=== PATIENT | male | born 1990 | race Caucasian/White ===

== ENCOUNTER 2019-05-17 13:00 | Emergency (ER) | payer MEDICARE ==
[~2019-05-17] VITALS: Ht 188 cm; Wt 74.8 kg
[~2019-05-17 13:00] MED LIST: ACYCLOVIR800 MG PO; COLCHICINE0.6 M1 PO; IBUPROFEN600 MG PO; IBUPROFEN800 MG PO; KEFLEX500 MG PO; MEDROL4 M1 PO; MYCOPHENOLIC A360 MG PO; NORCO 5-325 TA1 EACH PO; PREDNISONE20 MG PO; PROAIR HFA8.5 GM INH; VICOPROFEN 2001 EACH PO; XANAX0.5 MG PO; ZITHROMAX250 MG PO
--- OUTSIDE RECORDS SUMMARY | 2019-05-17 13:02 | XMS ---
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 Chace has no Care Guidelines for this patient. ETobi VISIT COUNT (12 MO.) 1 JEANETTE Kimball TOTAL 1 NOTE: Visits indicate total known visits. ED/C VISIT TRACKING (12 MO.) 05/17/2019 13:00 [place] [place] TYPE: Emergency COMPLAINT: - POST OP PROBLEM INPATIENT VISIT TRACKING (12 MO.) 12/19/2018 07:15 [facility] TYPE: Orthopedic DIAGNOSES: 79175. AVN RIGHT HIP [id number]. Idiopathic aseptic necrosis of left femur [id number]
== END 2019-05-17 15:24 | disposition home or self-care (01) ==
LOC: ED 13:00
DX: L76.22 Postprocedural hemorrhage of skin and subcutaneous tissue following other procedure (principal); Z79.899 Other long term (current) drug therapy
CPT/HCPCS: 99283

== ENCOUNTER 2019-05-17 16:43 | Emergency (ER) | payer MEDICARE ==
[~2019-05-17] VITALS: Ht 188 cm; Wt 74.8 kg
--- OUTSIDE RECORDS SUMMARY | ~2019-05-17 | XMS | Encounter Summary ---
Demographics + + + | Address | [address] | | | [place] [address] | + + + | Home Phone | | + + + | Preferred Language | Unknown | + + + | Marital Status | | + + + | Worship Affiliation | SPI | + + + | Race | White | + + + | Ethnic Group | Not or | + + + Author + + + | Author | [facility] | + + + | Organization | [facility] | + + + | Address | Unknown | + + + | Phone | Unavailable | + + + Support + + +---------+ + | Name | Relationship | Address | Phone | + + +---------+ + | Gabriel Kelly | ECON | Unknown | | + + +---------+ + Care Team Providers + +------+ + | Care Utility Plant Operative Name | Role | Phone | + +------+ + | Zayda Hinton | PCP | | + +------+ + Encounter Details +--------+ + + + + | Date | Type | Department | Care Team | Description | +--------+ + + + + | 08/22/ | Pharmacy | Specialty Pharmacy | | | | 2016 | Visit | Services [address] | | | | | | [address] | | | | | | [place], [place] | | | | | | [address] | | | | | | [phone] | | | +--------+ + + + + Social History + +-------+ +--------+ + | Tobacco Use | Types | Packs/Day | Years | Date | | | | | Used | | + +-------+ +--------+ + | Former Smoker | | 0.5 | 5 | Quit: 05/20/2015 | + +-------+ +--------+ + + +---+---+---+ | Smokeless Tobacco: | | | | | Former User | | | | + +---+---+---+ + + | Comments: used 1 year | + + + + +---------+ + | Alcohol Use | Drinks/Week | oz/Week | Comments | + + +---------+ + | Yes | 3 Standard drinks | 3.0 | | | | or equivalent | | | + + +---------+ + + + + | Sex Assigned at | Date Recorded | | | | + + + | Not on file | | + + + + + + + | Job Start Date | Occupation | Industry | + + + + | Not on file | Not on file | Not on file | + + + + + + + + | Travel History | Travel Start | Travel End | + + + + + + | No recent travel history available. | + + documented as of this encounter Plan of Treatment +--------+---------+ + + + | Date | Type | Specialty | Care Team | Description | +--------+---------+ + + + | 05/19/ | Lab | Phlebotomy | | | | 2018 | | | | | +--------+---------+ + + + | 05/19/ | Office | Hematology | Yari Garcia MD | | | 2019 | Visit | Malignancy | [address] [facility] | | | | | | [address] | | | | | | [place], [place] | | | | | | [address] | | | | | | [phone] | | | | | | | | +--------+---------+ + + + documented as of this encounter Visit Diagnoses Not on filedocumented in this encounter"
--- OUTSIDE RECORDS SUMMARY | ~2019-05-17 | XMS | Encounter Summary ---
Demographics + + + | Address | [address] | | | [place] [address] | + + + | Home Phone | | + + + | Preferred Language | Unknown | + + + | Marital Status | | + + + | Voodoo Affiliation | SPI | + + + | Race | White | + + + | Ethnic Group | Not or | + + + Author + + + | Author | [facility] | + + + | Organization | [facility] | + + + | Address | Unknown | + + + | Phone | Unavailable | + + + Support + + +---------+ + | Name | Relationship | Address | Phone | + + +---------+ + | Gabriel Kelly | ECON | Unknown | | + + +---------+ + Care Team Providers + +------+ + | Care Straightedge Worker Name | Role | Phone | + +------+ + | Pending Pcp Addition | PCP | Unavailable | + +------+ + Reason for Visit +--------+ + | Reason | Comments | +--------+ + | Other | NO change on TAC dose | +--------+ + Encounter Details +--------+ + + + + | Date | Type | Department | Care Team | Description | +--------+ + + + + | 10/27/ | Telephone | Center for | Yari Garcia MD | Other (NO change on | | 2016 | | Hematologic | [address] | TAC dose) | | | | [facility] | [address] | | | | | [address] | [place], [place] | | | | | [facility] Mailcode: | [address] | | | | | [facility] | [phone] | | | | | [place], | | | | | | [place] [address] | | | | | | [phone] | | | +--------+ + + + [...] Lab | Phlebotomy | | | | 2019 | | | | | +--------+---------+ + + + | 05/19/ | Office | Hematology | Yari Garcia MD | | | 2019 | Visit | Malignancy | [address] [facility] | | | | | | [address] | | | | | | [place], [place] | | | | | | [address] | | | | | | [phone] | | | | | | | | +--------+---------+ + + + documented as of this encounter Visit Diagnoses Not on filedocumented in this encounter"
--- OUTSIDE RECORDS SUMMARY | ~2019-05-17 | XMS | Encounter Summary ---
Demographics + + + | Address | [address] | | | [place] [address] | + + + | Home Phone | | + + + | Preferred Language | Unknown | + + + | Marital Status | | + + + | Mormon Affiliation | SPI | + + + | Race | White | + + + | Ethnic Group | Not or | + + + Author + + + | Author | [facility] | + + + | Organization | [facility] | + + + | Address | Unknown | + + + | Phone | Unavailable | + + + Support + + +---------+ + | Name | Relationship | Address | Phone | + + +---------+ + | Gabriel Kelly | ECON | Unknown | | + + +---------+ + Care Team Providers + +------+ + | Care Driftman Name | Role | Phone | + +------+ + | Zayda Hinton | PCP | | + +------+ + Reason for Visit + + + | Reason | Comments | + + + | Refill Request | | + + + Encounter Details +--------+--------+ + + + | Date | Type | Department | Care Team | Description | +--------+--------+ + + + | 09/05/ | Refill | Center for | Yari Garcia MD | Refill Request | | 2018 | | Hematologic | [address] [facility] [address] | | | | | Malignancies at | [address] [facility] | | | | | [address] | [place], [place] | | | | | [address] [facility] | [address] | | | | | [facility] Mailcode: | [phone] | | | | | [id number] [place] | | | | | | [place], | | | | | | [place] [address] | | | | | | [phone] | | | +--------+--------+ + + + Social History + +-------+ +--------+ + | Tobacco Use | Types | Packs/Day | Years | Date | | | | | Used | | + +-------+ +--------+ + | Former Smoker | | 1 | 7 | Quit: 05/20/2015 | + +-------+ +--------+ [...] 2019 | Visit | Malignancy | [address] [facility] | | | | | | [address] | | | | | | [place] | | | | | | [address] | | | | | | [phone] | | | | | | | | +--------+---------+ + + + documented as of this encounter Visit Diagnoses Not on filedocumented in this encounter"
--- OUTSIDE RECORDS SUMMARY | ~2019-05-17 | XMS | Encounter Summary ---
Demographics + + + | Address | [address] | | | [place] [address] | + + + | Home Phone | | + + + | Preferred Language | Unknown | + + + | Marital Status | | + + + | Worship Affiliation | SPI | + + + | Race | White | + + + | Ethnic Group | Not or | + + + Author + + + | Author | [facility] | + + + | Organization | [facility] | + + + | Address | Unknown | + + + | Phone | Unavailable | + + + Support + + +---------+ + | Name | Relationship | Address | Phone | + + +---------+ + | Gabriel Kelly | ECON | Unknown | | + + +---------+ + Care Team Providers + +------+ + | Care Assistant Professor Of Criminal Justice Name | Role | Phone | + +------+ + | Zayda Hinton | PCP | | + +------+ + Encounter Details +--------+ + + + + | Date | Type | Department | Care Team | Description | +--------+ + + + + | 08/05/ | Pharmacy | Specialty Pharmacy | | | | 2015 | Visit | Services [address] | | | | | | [address] | | | | | | [place], [place] | | | | | | [address] | | | | | | [phone] | | | +--------+ + + + + Social History + +-------+ +--------+ + | Tobacco Use | Types | Packs/Day | Years | Date | | | | | Used | | + +-------+ +--------+ + | Former Smoker | | 0.5 | 5 | Quit: 05/20/2015 | + +-------+ +--------+ + + + +---------+ + | Alcohol Use | Drinks/Week | oz/Week | Comments | + + +---------+ + | Yes | | | | + + +---------+ + [...] 2019 | Visit | Malignancy | [address] | | | | | [address] | | | | | | [place] | | | | | | [address] | | | | | | [phone] | | | | | | | | +--------+---------+ + + + documented as of this encounter Visit Diagnoses Not on filedocumented in this encounter"
--- OUTSIDE RECORDS SUMMARY | ~2019-05-17 | XMS | Encounter Summary ---
Demographics + + + | Address | [address] | | | [place] [address] | + + + | Home Phone | | + + + | Preferred Language | Unknown | + + + | Marital Status | | + + + | Denominational Affiliation | SPI | + + + | Race | White | + + + | Ethnic Group | Not or | + + + Author + + + | Author | [facility] | + + + | Organization | [facility] | + + + | Address | Unknown | + + + | Phone | Unavailable | + + + Support + + +---------+ + | Name | Relationship | Address | Phone | + + +---------+ + | Gabriel Kelly | ECON | Unknown | | + + +---------+ + Care Team Providers + +------+ + | Care Battery Checker Name | Role | Phone | + +------+ + | Pending Pcp Addition | PCP | Unavailable | + +------+ + Reason for Visit + + + | Reason | Comments | + + + | Chemotherapy | | + + + Chemotherapy (Routine) +--------+---------+ + + + + | Status | Reason | Specialty | Diagnoses / | Referred By | Referred To | | | | | Procedures | Contact | Contact | +--------+---------+ + + + + | Closed | Other | Hematology | Diagnoses | Jose | Michelle | | | | Malignancy | Acute | Yari Jones MD | Infusion | | | | | myelomonocyt | [address] | Center [address] | | | | | ic leukemia, | [address] | [address] | | | | | not having | [address] | [address] | | | | | achieved | [place], [place] | Rd Mailcode: | | | | | remission | [address] | [id number] | | | | | Procedures | Phone: | [place] | | | | | [place] | [phone] | Pavilion | | | | | AZACITIDINE | Fax: | [place], [place] | | | | | INJECTION, 1 | [phone] | [address] | | | | | [place] | | Phone: | | | | | [facility] | | [phone] | | | | | INFSN,1 HR | | Fax: | | | | | [place] [facility] | | [phone] | | | | | INFSN,ADDL | | | | | | | HR Vidaza | | | +--------+---------+ + + + + Encounter Details +--------+ + + + + | Date | Type | Department | Care Team | Description | +--------+ + + + + | 03/23/ | Clinical | Center for | | Chemotherapy | | 2016 | Support | Hematologic | | | | | Staff | [facility] | | | | | | [address] | | | | | | [address] Mailcode: | | | | | | [id number] [place] | | | | | | [place], | | | | | | [place] [address] | | | | | | [phone] | | | +--------+ + + + [...] + + documented as of this encounter Last Filed Vital Signs + + + + + | Vital Sign | Reading | Time Taken | Comments | + + + + + | Blood Pressure | 124/72 | 03/23/2016 8:50 AM | | | | | PDT | | + + + + + | Pulse | 71 | 03/23/2016 8:50 AM | | | | | PDT | | + + + + + | Temperature | 37 C (98.6 F) | 03/23/2016 8:50 AM | | | | | PDT | | + + + + + | Respiratory Rate | 16 | 03/23/2016 8:50 AM | | | | | PDT | | + + + + + | Oxygen Saturation | 99% | 03/23/2016 8:50 AM | | | | | PDT | | + + + + + | Inhaled Oxygen | - | - | | | Concentration | | | | + + + + + | Weight | 99.8 kg (220 lb 0.3 | 03/23/2016 8:50 AM | | | | oz) | PDT | | + + + + + | Height | - | - | | + + + + + | Body Mass Index | 27.94 | 01/25/2016 8:24 AM | | | | | PDT | | + + + + + documented in this encounter Progress Notes Allyson Hardy, ZAFAR - 03/23/2016 9:08 AM PDTFormatting of this note might be different fr om the original. Chemotherapy Nurse Note Physician: Dr. Garcia Allergies: Khurram is allergic to chlorhexidine towelette. Pre-Chemotherapy Pain Score: Patient reports a pain level of today. Narrative: Pt arrived in clinic for scheduled day 4 cycle 6 of Vidaza. Pt states he is fee ling well today. Pt denies any fevers, chills, nausea, vomiting, pain, constipation, diarrhe a, edema, sob, numbness, tingling, or mouth sores. Pt reports they are eating and drinking a dequately. Nursing Assessment: Fever: no; Diarrhea: no; SOB / Cough: no; Nausea / Vomiting: no; Anemia / Fatigue: no; Cons tipation: no; Edema: no; S/S Bleeding: no; Mucositis: no; Urinary: no; Neuropathy: no; Rash: no Vascular Access: 24 gauge PIV placed in patient s right forearm, using an IV start kit. PIV with excellent blood return. Labs drawn and sent. PIV flushed with 10 mL NS without any problems. Sterile transparent dressing applied. Patient tolerated procedure well. Labs: Lab Results Component Value Date WBC 7.8 03/20/2016 HB 12.7* 03/20/2016 HCT 37.4* 03/20/2016 PLT 173 03/20/2016 BUN 13 03/20/2016 CR 0.9 03/20/2016 For Treatment Done in Clinic Today: see MAR Treatment Provided: Labs results reviewed and met protocol parameters. Pre-medications of 8 mg PO Zofran given as ordered. Chemotherapy was checked by 2 RNs. 75 mg Vidaza was infused per chemotherapy protocol and completed without adverse event. Positive blood return noted pre and post infusion. For in fusion details, see MAR. Patient was reminded to call clinic with temp > 100.4, chills, s/s of bleeding or uncontrol led N/V/D/C. Patient verbalizes understanding. All questions answered. Patient was instructe d to check out at the bowling floor desk clerk prior to leaving the clinic. Patient d/c d ambulatory wit h in stable condition. Next Appointment in [facility] is on 03/24/16 at 7:50 am with [facility]. Allyson Hardy RN documented in this e ncounter Plan of Treatment +--------+---------+ + + + | Date | Type | Specialty | Care Team | Description | +--------+---------+ + + + | 05/19/ | Lab | Phlebotomy | | | | 2018 | | | | | +--------+---------+ + + + | 05/19/ | Office | Hematology | Yari Garcia MD | | | 2018 | Visit | Malignancy | [address] [facility] | | | | | | [address] | | | | | | [place], [place] | | | | | | [address] | | | | | | [phone] | | | | | | | | +--------+---------+ + + + documented as of this encounter Visit Diagnoses + + | Diagnosis | + + | Acute myeloid leukemia (AML), M4 (HCC)- primary induction failure - Primary | + + documented in this encounter Administered Medications + +---------+ +-------+-------+------+ | Medication Order | MAR | Action | Dose | Rate | Site | | | Action | Date | | | | + +---------+ +-------+-------+------+ | azaCITIDine (VIDAZA) 75 mg in | New Bag | 03/23/20 | 75 mg | 215 | | | NaCl 0.9 % IV 75 mg (rounded | | 16 9:55 | | mL/hr | | | from 72.64 mg = 32 mg/m2 | | AM PDT | | | | | 2.27 m2 Treatment plan recorded | | | | | | | BSA), intravenous, Administer | | | | | | | over 30 Minutes, ONCE, 1 dose, | | | | | | | Lupe 03/23/16 at 1015, HIGH RISK | | | | | | | MEDICATION-CHEMOTHERAPY | | | | | | | Administration must be completed | | | | | | | within 1 hour of preparation., | | | | | | + +---------+ +-------+-------+------+ +---+---+ | | | +---+---+ + +-------+ +------+---+---+ | ondansetron (ZOFRAN) tablet 8 | Given | 03/23/20 | 8 mg | | | | mg 8 mg, oral, ONCE, 1 dose, Lupe | | 16 9:21 | | | | | 03/23/16 at 0945 | | AM PDT | | | | + +-------+ +------+---+---+ +---+---+ | | | +---+---+ documented in this encounter"
--- OUTSIDE RECORDS SUMMARY | ~2019-05-17 | XMS | Encounter Summary ---
Demographics + + + | Address | [address] | | | [place] [address] | + + + | Home Phone | | + + + | Preferred Language | Unknown | + + + | Marital Status | | + + + | Worship Affiliation | SPI | + + + | Race | White | + + + | Ethnic Group | Not or | + + + Author + + + | Author | [facility] | + + + | Organization | [facility] | + + + | Address | Unknown | + + + | Phone | Unavailable | + + + Support + + +---------+ + | Name | Relationship | Address | Phone | + + +---------+ + | Gabriel Kelly | ECON | Unknown | | + + +---------+ + Care Team Providers + +------+ + | Care Military Nurse Name | Role | Phone | + +------+ + | Pending Pcp Addition | PCP | Unavailable | + +------+ + Encounter Details +--------+------+ + + + | Date | Type | Department | Care Team | Description | +--------+------+ + + + | 05/01/ | Lab | Laboratory, | | S/P allogeneic bone | | 2015 | | Specimen Collection | | marrow transplant | | | | at [facility] 3rd Floor | | ([facility]) | | | | [address] | | | | | | [place], | | | | | | [place] [address] | | | | | | [phone] | | | +--------+------+ + + + Social History + +-------+ [...] 2019 | Visit | Malignancy | [address] [facility] | | | | | | [address] | | | | | | [place], [place] | | | | | | [address] | | | | | | [phone] | | | | | | | | +--------+---------+ + + + documented as of this encounter Procedures + +--------+ + + + | Procedure Name | Priori | Date/Time | Associated Diagnosis | Comments | | | ty | | | | + +--------+ + + + | CBC AND AUTO DIFF | Urgent | 05/01/2016 | S/P allogeneic | Results for this | | | | 7:33 AM | bone marrow | procedure are in the | | | | PDT | transplant ([facility]) | results section. | + +--------+ + + + | CBC, WITH | Urgent | 05/01/2016 | S/P allogeneic | Results for this | | DIFFERENTIAL | | 7:33 AM | bone marrow | procedure are in the | | | | PDT | transplant ([facility]) | results section. | + +--------+ + + + | COMPLETE METABOLIC | Routin | 05/01/2016 | S/P allogeneic | Results for this | | SET | e | 7:33 AM | bone marrow | procedure are in the | | (NA,K,CL,CO2,BUN,CRE | | PDT | transplant ([facility]) | results section. | | AT,GLUC,CA,AST,ALT,B | | | | | | YUN TOTAL,ALK | | | | | | PHOS,ALB,PROT TOTAL) | | | | | + +--------+ + + + | PHOSPHORUS, PLASMA | Routin | 05/01/2016 | S/P allogeneic | Results for this | | | e | 7:33 AM | bone marrow | procedure are in the | | | | PDT | transplant ([facility]) | results section. | + +--------+ + + + | BILIRUBIN DIRECT | Routin | 05/01/2016 | S/P allogeneic | Results for this | | | e | 7:33 AM | bone marrow | procedure are in the | | | | PDT | transplant ([facility]) | results section. | + +--------+ + + + | URIC ACID, PLASMA | Routin | 05/01/2016 | S/P allogeneic | Results for this | | | e | 7:33 AM | bone marrow | procedure are in the | | | | PDT | transplant ([facility]) | results section. | + +--------+ + + + | MAGNESIUM, PLASMA | Routin | 05/01/2016 | S/P allogeneic | Results for this | | | e | 7:33 AM | bone marrow | procedure are in the | | | | PDT | transplant ([facility]) | results section. | + +--------+ + + + | LDH TOTAL, PLASMA | Routin | 05/01/2016 | S/P allogeneic | Results for this | | | e | 7:33 AM | bone marrow | procedure are in the | | | | PDT | transplant ([facility]) | results section. | + +--------+ + + + documented in this encounter Results CBC AND AUTO DIFF (05/01/2016 7:33 AM PDT) + + + + + + | Component | Value | Ref Range | Performed | Pathologist | | | | | At | Signature | + + + + + + | WHITE CELL | 8.50 | 4.40 - 11.00 | [facility] | | | COUNT | | K/cu mm | LABORATORY | | | | | | SERVICES, | | | | | | CORE | | + + + + + + | RED CELL | 4.38 (L) | 4.50 - 6.00 | [facility] | | | COUNT | | M/cu mm | LABORATORY | | | | | | SERVICES, | | | | | | CORE | | + + + + + + | HEMOGLOBIN | 14.5 | 13.5 - 17.5 | [facility] | | | | | g/dL | LABORATORY | | | | | | SERVICES, | | | | | | CORE | | + + + + + + | HEMATOCRIT | 42.9 | 41.0 - 53.0 % | [facility] | | | | | | LABORATORY | | | | | | SERVICES, | | | | | | CORE | | + + + + + + | MCV | 97.9 (H) | 80.0 - 96.0 fL | [facility] | | | | | | LABORATORY | | | | | | SERVICES, | | | | | | CORE | | + + + + + + | MCHC | 33.8 | 33.0 - 35.5 | [facility] | | | | | g/dL | LABORATORY | | | | | | SERVICES, | | | | | | CORE | | + + + + + + | RDW SD | 44.9 | 35.1 - 46.3 fL | [facility] | | | | | | LABORATORY | | | | | | SERVICES, | | | | | | CORE | | + + + + + + | PLATELET | 180 | 150 - 400 K/cu | [facility] | | | COUNT | | mm | LABORATORY | | | | | | SERVICES, | | | | | | CORE | | + + + + + + | MPV | 8.1 (L) | 9.7 - 12.3 fL | [facility] | | | | | | LABORATORY | | | | | | SERVICES, | | | | | | CORE | | + + + + + + | NRBC% | 0.0 | 0.0 - 0.3 % | [facility] | | | | | | LABORATORY | | | | | | SERVICES, | | | | | | CORE | | + + + + + + | NRBC# | 0.00 | 0.00 - 0.02 | [facility] | | | | | K/cu mm | LABORATORY | | | | | | SERVICES, | | | | | | CORE | | + + + + + + | NEUTROPHIL | 48.3 (L) | 50.0 - 70.0 % | [facility] | | | % | | | LABORATORY | | | | | | SERVICES, | | | | | | CORE | | + + + + + + | LYMPHOCYTE | 41.1 | 18.0 - 42.0 % | [facility] | | | % | | | LABORATORY | | | | | | SERVICES, | | | | | | CORE | | + + + + + + | MONOCYTE % | 6.4 | 3.5 - 9.0 % | [facility] | | | | | | LABORATORY | | | | | | SERVICES, | | | | | | CORE | | + + + + + + | EOS % | 3.2 (H) | 1.0 - 3.0 % | [facility] | | | | | | LABORATORY | | | | | | SERVICES, | | | | | | CORE | | + + + + + + | BASO % | 0.4 | 0.0 - 2.0 % | [facility] | | | | | | LABORATORY | | | | | | SERVICES, | | | | | | CORE | | + + + + + + | IG% | 0.6Comment: Immature | 0.0 - 0.6 % | [facility] | | | | Granulocytes (IG) | | LABORATORY | | | | include metamyelocytes, | | SERVICES, | | | | myelocytes and | | CORE | | | | promyelocytes. Bands | | | | | | are not included in the | | | | | | IG count. Bands are | | | | | | included in the | | | | | | neutrophil count. | | | | + + + + + + | NEUTROPHIL | 4.12 | 1.80 - 7.70 | [facility] | | | # | | K/cu mm | LABORATORY | | | | | | SERVICES, | | | | | | CORE | | + + + + + + | LYMPHOCYTE | 3.49 | 1.00 - 4.80 | [facility] | | | # | | K/cu mm | LABORATORY | | | | | | SERVICES, | | | | | | CORE | | + + + + + + | MONOCYTE # | 0.54 | 0.10 - 0.90 | [facility] | | | | | K/cu mm | LABORATORY | | | | | | SERVICES, | | | | | | CORE | | + + + + + + | EOS # | 0.27 | 0.00 - 0.50 | [facility] | | | | | K/cu mm | LABORATORY | | | | | | SERVICES, | | | | | | CORE | | + + + + + + | BASO # | 0.03 | 0.00 - 0.10 | [facility] | | | | | K/cu mm | LABORATORY | | | | | | SERVICES, | | | | | | CORE | | + + + + + + | IG# | 0.05 (H) | 0.00 - 0.03 | [facility] | | | | | K/cu mm | LABORATORY | | | | | | SERVICES, | | | | | | CORE | | + + + + + + + + | Specimen | + + | Blood - Blood | | (substance) | + + + + + | Narrative | Performed At | + + + | Immature Granulocytes (IG) include metamyelocytes, myelocytes | [facility] | | and promyelocytes. Bands are not included in the IG count. Bands are | LABORATORY | | included in the neutrophil count. | SERVICES CORE | + + + + + + + + | Performing | Address | City/State/Zipcode | Phone Number | | Organization | | | | + + + + + | [facility] | [address] | [place] [address] | | | SERVICES, CORE | [address] | | | + + + + + LDH TOTAL, PLASMA (05/01/2016 7:33 AM PDT) + +---------+ + + + | Component | Value | Ref Range | Performed | Pathologist | | | | | At | Signature | + +---------+ + + + | LD TOTAL, | 210 | <=250 U/L | [facility] | | | PLASMA | | | LABORATORY | | | | | | SERVICES, | | | | | | CORE | | + +---------+ + + + | LD CMNT | No Hemo | | [facility] | | | | | | LABORATORY | | | | | | SERVICES, | | | | | | CORE | | + +---------+ + + + + + | Specimen | + + | Blood - Blood | | (substance) | + + + + + + + | Performing | Address | City/State/Zipcode | Phone Number | | Organization | | | | + + + + + | [facility] | [address] | [place] [address] | | | SERVICES, CORE | [address] | | | + + + + + BILIRUBIN DIRECT (05/01/2016 7:33 AM PDT) + +---------+ + + + | Component | Value | Ref Range | Performed | Pathologist | | | | | At | Signature | + +---------+ + + + | BILIRUBIN | <0.1 | 0.0 - 0.3 mg/dL | [facility] | | | DIRECT | | | LABORATORY | | | | | | SERVICES, | | | | | | CORE | | + +---------+ + + + | REI Rice CMNT | No Hemo | | [facility] | | | | | | LABORATORY | | | | | | SERVICES, | | | | | | CORE | | + +---------+ + + + + + | Specimen | + + | Blood - Blood | | (substance) | + + + + + + + | Performing | Address | City/State/Zipcode | Phone Number | | Organization | | | | + + + + + | [facility] | [address] | [place] [address] | | | SERVICES, CORE | [address] | | | + + + + + URIC ACID, PLASMA (05/01/2016 7:33 AM PDT) + +-------+ + + + | Component | Value | Ref Range | Performed | Pathologist | | | | | At | Signature | + +-------+ + + + | URIC ACID, | 5.1 | 3.7 - 8.0 mg/dL | [facility] | | | PLASMA | | | LABORATORY | | | (LAB) | | | SERVICES, | | | | | | CORE | | + +-------+ + + + + + | Specimen | + + | Blood - Blood | | (substance) | + + + + + + + | Performing | Address | City/State/Zipcode | Phone Number | | Organization | | | | + + + + + | [facility] | [address] | [place] [address] | | | SERVICES, CORE | [address] | | | + + + + + PHOSPHORUS, PLASMA (05/01/2016 7:33 AM PDT) + +-------+ + + + | Component | Value | Ref Range | Performed | Pathologist | | | | | At | Signature | + +-------+ + + + | PHOSPHORUS, | 3.0 | 2.4 - 4.7 mg/dL | [facility] | | | PLASMA | | | LABORATORY | | | (LAB) | | | SERVICES, | | | | | | CORE | | + +-------+ + + + + + | Specimen | + + | Blood - Blood | | (substance) | + + + + + + + | Performing | Address | City/State/Zipcode | Phone Number | | Organization | | | | + + + + + | [facility] | [address] | [place] [address] | | | SERVICES, CORE | [address] | | | + + + + + MAGNESIUM, PLASMA (05/01/2016 7:33 AM PDT) + +-------+ + + + | Component | Value | Ref Range | Performed | Pathologist | | | | | At | Signature | + +-------+ + + + | MAGNESIUM,P | 2.0 | 1.8 - 2.5 mg/dL | [facility] | | | LASMA | | | LABORATORY | | | | | | SERVICES, | | | | | | CORE | | + +-------+ + + + + + | Specimen | + + | Blood - Blood | | (substance) | + + + + + + + | Performing | Address | City/State/Zipcode | Phone Number | | Organization | | | | + + + + + | [facility] | [address] | [place] [address] | | | SERVICES, CORE | [address] | | | + + + + + COMPLETE METABOLIC SET (NA,K,CL,CO2,BUN,CREAT,GLUC,CA,AST,ALT,BILI TOTAL,ALK PHOS,ALB,PROT TOTAL) (05/01/2016 7:33 AM PDT) + +---------+ + + + | Component | Value | Ref Range | Performed | Pathologist | | | | | At | Signature | + +---------+ + + + | GLUCOSE, | 128 (H) | 60 - 99 mg/dL | [facility] | | | PLASMA | | | LABORATORY | | | (LAB) | | | SERVICES, | | | | | | CORE | | + +---------+ + + + | BUN, PLASMA | 9 | 6 - 20 mg/dL | [facility] | | | (LAB) | | | LABORATORY | | | | | | SERVICES, | | | | | | CORE | | + +---------+ + + + | CREATININE | 0.91 | 0.70 - 1.30 | [facility] | | | PLASMA | | mg/dL | LABORATORY | | | (LAB) | | | SERVICES, | | | | | | CORE | | + +---------+ + + + | EGFR | >60 | >60 mL/min | [facility] | | | - | | | LABORATORY | | | TAIWANESE | | | SERVICES, | | | | | | CORE | | + +---------+ + + + | EGFR NON | >60 | >60 mL/min | [facility] | | | -JOANNE | | | LABORATORY | | | RICAN | | | SERVICES, | | | | | | CORE | | + +---------+ + + + | SODIUM, | 139 | 136 - 145 | [facility] | | | PLASMA | | mmol/L | LABORATORY | | | (LAB) | | | SERVICES, | | | | | | CORE | | + +---------+ + + + | POTASSIUM, | 3.7 | 3.4 - 5.0 | [facility] | | | PLASMA | | mmol/L | LABORATORY | | | (LAB) | | | SERVICES, | | | | | | CORE | | + +---------+ + + + | CHLORIDE, | 105 | 97 - 108 mmol/L | [facility] | | | PLASMA | | | LABORATORY | | | (LAB) | | | SERVICES, | | | | | | CORE | | + +---------+ + + + | TOTAL CO2, | 27 | 21 - 32 mmol/L | [facility] | | | PLASMA | | | LABORATORY | | | (LAB) | | | SERVICES, | | | | | | CORE | | + +---------+ + + + | CALCIUM, | 9.9 | 8.6 - 10.2 | [facility] | | | PLASMA | | mg/dL | LABORATORY | | | (LAB) | | | SERVICES, | | | | | | CORE | | + +---------+ + + + | CALCIUM(ALB | 9.8 | 8.6 - 10.2 | [facility] | | | CORRECTED) | | mg/dL | LABORATORY | | | | | | SERVICES, | | | | | | CORE | | + +---------+ + + + | BILIRUBIN | 0.4 | 0.3 - 1.2 mg/dL | [facility] | | | TOTAL | | | LABORATORY | | | | | | SERVICES, | | | | | | CORE | | + +---------+ + + + | TOTAL | 7.4 | 6.4 - 8.2 g/dL | [facility] | | | PROTEIN, | | | LABORATORY | | | PLASMA | | | SERVICES, | | | (LAB) | | | CORE | | + +---------+ + + + | ALBUMIN, | 4.1 | 3.5 - 4.7 g/dL | [facility] | | | PLASMA | | | LABORATORY | | | (LAB) | | | SERVICES, | | | | | | CORE | | + +---------+ + + + | ALK PHOS | 78 | 53 - 128 U/L | [facility] | | | | | | LABORATORY | | | | | | SERVICES, | | | | | | CORE | | + +---------+ + + + | AST(SGOT) | 50 (H) | <=41 U/L | [facility] | | | | | | LABORATORY | | | | | | SERVICES, | | | | | | CORE | | + +---------+ + + + | ALT (SGPT) | 101 (H) | <=60 U/L | [facility] | | | | | | LABORATORY | | | | | | SERVICES, | | | | | | CORE | | + +---------+ + + + | ANION GAP | 7 | mmol/L | [facility] | | | | | | LABORATORY | | | | | | SERVICES, | | | | | | CORE | | + +---------+ + + + | ANION | 6 | 4 - 11 mmol/L | [facility] | | | GAP(ALB | | | LABORATORY | | | CORRECTED) | | | SERVICES, | | | | | | CORE | | + +---------+ + + + | POTASSIUM | No Hemo | | [facility] | | | CMNT | | | LABORATORY | | | | | | SERVICES, | | | | | | CORE | | + +---------+ + + + | BILI T CMNT | No Hemo | | [facility] | | | | | | LABORATORY | | | | | | SERVICES, | | | | | | CORE | | + +---------+ + + + | AST CMNT | No Hemo | | [facility] | | | | | | LABORATORY | | | | | | SERVICES, | | | | | | CORE | | + +---------+ + + + + + | Specimen | + + | Blood - Blood | | (substance) | + + + + + | Narrative | Performed At | + + + | GFR is estimated using the MDRD equation recommended by the | [facility] | | National Kidney Disease Education Program. Estimated GFR | LABORATORY | | Interpretive Information: <60 mL/min/1.73 sq m | [facility], CORE | | Chronic Kidney Disease <15 mL/min/1.73 sq m | | | Kidney Failure Estimated GFR greater that 60 mL/min/1.73 sq m is of | | | limited clinical value. 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
--- OUTSIDE RECORDS SUMMARY | ~2019-05-17 | XMS | Encounter Summary ---
Demographics + + + | Address | [address] | | | [place] [address] | + + + | Home Phone | | + + + | Preferred Language | Unknown | + + + | Marital Status | | + + + | Mormon Affiliation | SPI | + + + | Race | White | + + + | Ethnic Group | Not or | + + + Author + + + | Author | [facility] | + + + | Organization | [facility] | + + + | Address | Unknown | + + + | Phone | Unavailable | + + + Support + + +---------+ + | Name | Relationship | Address | Phone | + + +---------+ + | Gabriel Kelly | ECON | Unknown | | + + +---------+ + Care Team Providers + +------+ + | Care Inspector Subassembly Name | Role | Phone | + +------+ + | Pending Pcp Addition | PCP | Unavailable | + +------+ + Reason for Visit +--------+ + | Reason | Comments | +--------+ + | Rash | | +--------+ + Office Visit - E/M Services (Routine) +--------+---------+ + + + + | Status | Reason | Specialty | Diagnoses / | Referred By | Referred To | | | | | Procedures | Contact | Contact | +--------+---------+ + + + + | Closed | Other | Hematology | Diagnoses | Jose, | Michelle [facility] | | | | Malignancy | Acute | Yari Jones MD | [facility] [address] | | | | | myelomonocyt | [address] | [address] | | | | | ic leukemia, | [address] | [address] | | | | | not having | [address] | Mailcode: | | | | | achieved | [place], [place] | [id number] | | | | | remission | [address] | [place] | | | | | | Phone: | [facility] | | | | | Procedures | [phone] | [place], [place] | | | | | Post BMT | Fax: | [address] | | | | | Auth to | [phone] | Phone: | | | | | included | | [phone] | | | | | facility, | | Fax: | | | | | diagnostics, | | [phone] | | | | | office | | | | | | | visits and | | | | | | | surgery | | | +--------+---------+ + + + + Encounter Details +--------+---------+ + + + | Date | Type | Department | Care Team | Description | +--------+---------+ + + + | 09/14/ | Office | [facility] for | Aspen Cummins FNP | 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) (HCC) | | | | Malignancies at | [address] | (Primary Dx) | | | | [facility] | [place], [place] | | | | | [address] | [address] | | | | | De[address] Mailcode: | [phone] | | | | | [facility] | | | | | | [facility] [place], | | | | | | [place] [address] | | | | | | [phone] | | | +--------+---------+ + + + Social History + +-------+ [...] + + + | Blood Pressure | 110/67 | 09/15/2015 3:42 PM | | | | | PST | | + + + + + | Pulse | 76 | 09/15/2015 3:42 PM | | | | | PST | | + + + + + | Temperature | 36.6 C (97.8 F) | 09/15/2015 3:42 PM | | | | | PST | | + + + + + | Respiratory Rate | 16 | 09/15/2015 3:42 PM | | | | | PST | | + + + + + | Oxygen Saturation | 100% | 09/15/2015 3:42 PM | | | | | PST | | + + + + + | Inhaled Oxygen | - | - | | | Concentration | | | | + + + + + | Weight | 77.1 kg (170 lb) | 09/15/2015 3:42 PM | | | | | PST | | + + + + + | Height | - | - | | + + + + + | Body Mass Index | 21.97 | 08/18/2015 4:35 PM | | | | | PST | | + + + + + documented in this encounter Patient Instructions Patient Instructions Aspen Cummins FNP - 09/15/2015 4:02 PM PST1. Begin prednisone 35 mg (3 1/2 tablets) by mouth twice daily. Take your morning dose as soon as you're out of bed i n the morning; be sure to eat a little something with it. Then take your afternoon dose arou nd 3:00 - again, be sure to eat something with it. 2. Begin posaconazole (noxifil) 300 mg by mouth twice daily x 2 doses, then 300 mg by mout h once daily. Stop fluconazole once you start the posaconazole 3. Once you start the posaconazole, decrease your tacrolimus to 1.5 mg by mouth twice afia y 4. Continue to use the triamcinolone cream twice daily. Do not apply this cream to your fa ce/neck, under your arms or in your groin. 5. If you have trouble sleeping because of the prednisone, please give us a call and we ca n prescribe a medication that will help 6. Return to clinic to follow up with Lizzie Leavitt PA-C on 09/17/15 as scheduled or sooner as needed documented in this encounter Progress Notes Aspen Cummins FNP - 09/15/2015 3:41 PM PST 09/15/2015 [facility] MD: Yari Garcia MD Primary Oncologist: aYri Garcia MD Diagnosis: AMML, primary refractory Transplant Date: 08/27/15 Donor: MM URD (DPB1 permissive antigen mismatch, male, [id number]) Identifying Data: Khurram Kelly is a 25 y.o. CM with a PMH of pericarditis who was in his [facility] until 03/13/15 (the night of his wedding) at which time he noted bilateral an kle pain and swelling. This persisted and worsened intermittently, progressing until he coul dn't bear weight. He presented to the ED, was diagnosed with cellulitis of the RLE, and pres cribed antibiotics. During evaluation, he was noted to be pancytopenic with subsequent white blood cell differential identifying a predominance of early appearing monocytes. On 04/18/15 he noted pleuritic anterior chest pains, low-grade fevers occasionally up to 10 1 with swelling and erythema over his L ankle. He was evaluated at [place]' ED on 06/[address] angiogram negative for blood clot. CBC demonstrated WBC 15.3 with 59% monocyt es and 3% immature monocytes, hgb 11.8, plts 146. He was apparently treated with antibiotics , colchicine and anti-inflammatory agents for possible dx of pericarditis with complete reso lution of his symptoms. After completion of his course of atbx and other medicines, his symptoms returned and he re -presented to the ED on 04/25/15. Repeat CT angiogram was again negative for PE or other abn ormality. CBC showed WBC 14.3 with 48% monocytes and 4% immature monocytes, hgb 12.8, plts 1 80. He was again treated with colchicine without antibiotics, again with complete resolution of symptoms. Due to symptoms of arthralgias, recurrent fevers, pericarditis and CBC abnl, jazlyn barrera was referred to Oncology for additional evaluation. Marrow studies completed on 05/19/15 s howed a hypercellular marrow (80-90%) with 86% of blast equivalents, comprised of myeloblast s, monoblasts and promonocytes. Concurrent flow cytometry detected 23% myeloid blasts and 60 % immature monocytic cells supporting this diagnosis. 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 He was referred to [facility] for further evaluation and man agement of his newly dx'd AML. Pt was admitted to [facility] on 05/26/15. Peripheral blood was sent for diagnostic studies, show ed 47% blasts and 30% monocytes, immunophenotype of blasts: dimCD13, CD33, CD34, CD56, CD117 , and CD123 c/w AMML. Cytogenetic and FISH studies were normal however Genetrails demonstrat ed a mutation of NRAS (~40%). He then received standard induction therapy (3+7). His day 14 marrow [06/09/15] showed a 50-60% cellular marrow with approximately 50% blasts. He began re- induction regimen with HAM on 06/11/15. Repeat marrow studies completed 07/08/15 showed a hyp ocellular marrow (15%) with ~80% blasts/promonocytes c/w residual disease. Blast immunopheno type (10% by flow): dim CD13, CD33, CD34, variable CD56, variable CD117, and dim IW115-stglj mickey; promonocyte immunophenotype (70% by flow): CD11b, CD13, CD14, variable CD16, CD33, vari able CD56, CD64, and HLA-DR- positive. Cytogenetic and FISH studies remained normal. Pt's hospital course was complicated by parotiditis, initially with Zosyn and vancomycin fo r possible infection however subsequently felt more likely more c/w chemotherapy-induced per itonitis. CT scan of his face 06/07/15 showed enlargement and heterogeneous enhancement of t he left parotid gland. He also experienced a periodontal infection. He was d/c'd to home on 07/08/15 and has followed up closely with Yari Garcia MD. Due to disease persistence, he t lashon underwent treatment with decitabine 20mg/m2 on days 1-10 (07/19/15 - 07/28/15) which was u ncomplicated. He did not have any fevers/infectious symptoms requiring further evaluation du ring that time. His pretransplant marrow studies completed 08/09/15 showed a hypocellular (5%) marrow with ne renata absent hematopoiesis with 60% blast/promonocytes. Blast immunophenotype (9% by flow): C D13, CD33, CD34, dim CD56, CD117, and dim CD123 positive. Promonocyte immunophenotype (~50% by flow): CD11b, CD13, CD14, dim CD56, CD64, and HLA-DR positive. Cytogenetics 46,XY. Hilary rails remained positive for NRAS (~0.9%, previously ~40% in 05/23). He was then re-hospitalized from 08/18/15 through 09/13/15 for his tBuCy-conditioned unrelated donor PBSC transplant. His transplant hospitalization was complicated by pancytopenia, neut ropenic fever, pneumonia, mucositis (grade 3 at worst) with hematemesis, CINV, diarrhea, hyp ertension, rash, and conjunctival injection. He is currently day +19 s/p transplant and presents to clinic today with spreading rash. Interim History: Khurram was most recently evaluated [facility] by JULIANA Patterson yesterday. At that time, he state he had a faintly eryth ematous rash to his upper chest, mid back and flanks. Notes document ~15% BSA. Today while he was getting dressed, he noted increase in his rash, now covering his trunk, patchy invol vement of his bilat upper arms, bilat thighs; sparing head/neck, forearms, groin, buttocks a nd calves/shins. He states he is feeling well o/w. Medications reviewed, see current med list Physical Exam Wt 77.111 kg (170 lb), BP 110/67, Pulse 76, Temperature 36.6 C (97.8 F), Temperature so urce Oral, RR 16, SpO2 100%, BMI 21.98 kg/(m^2). General: This is a healthy appearing male in no acute distress. HEENT: PERRL. Sclerae anicteric. Skin: Erythematous maculopapular rash to chest, abd, back, upper arms bilat, thighs bilat (front and back); ~56% BSA Lab Results Component Value Date WBC 10.4 09/14/2015 HB 9.6 09/14/2015 HCT 27.4 09/14/2015 PLT 42 09/14/2015 MCV 85.4 09/14/2015 RDW 40.3 09/12/2015 Lab Results Component Value Date BICARB 26 09/14/2015 TBILI 0.4 09/14/2015 CA 9.5 09/14/2015 CL 101 09/14/2015 CR 1.3 09/14/2015 GLU 93 09/14/2015 AP 119 09/14/2015 TP 6.8 09/14/2015 BUN 17 09/14/2015 ALB 3.6 09/14/2015 AST 15 09/14/2015 NA 138 09/14/2015 K 4.4 09/14/2015 ALT 33 09/14/2015 Assessment: Khurram Kelly is a 25 y.o. CM with a hx of primary refractory AML, currently d ay +19 s/p MM URD PBSC tx. He presents today with a rash that has spread from ~15% BSA to ~ 56% BSA overnight. Non-pruritic. Began TAC cream this morning. Skin bx completed 09/06/15 showed subtle vacuolar interface dermatitis. [Though quite subtle and not entirely specific, the changes are consistent with eruption of lymphocyte recovery and early mild xhhmk-mtadqm-oaec disease. Similar histologic changes may be seen in morbilli form eruptions of variable etiology including viral exanthem. While not required for a diagn osis, the paucity of eosinophils probably makes drug eruption less likely]. With rapidly spreading rash and skin bx findings c/w GvHD, begin moderate dose steroids wit h rapid taper providing rash resolves quickly. No evidence of liver or gut involvement at th is time. Plan: 1. Prednisone 35 mg po BID 2. D/c fluconazole 3. Posaconazole 300 mg po BID x 2 doses, then 300 mg po daily 4. Decrease tacrolimus to 1.5 mg po BID when changing from fluconazole to posaconazole. 5. Advised pt to take prednisone early in the AM and again ~1500 in the afternoon, always with food 6. RTC to f/u with JULIANA Patterson on 09/17/15 as previously scheduled, ORLY Chadwick rn [facility] [address] Mailcode: [id number] [place] [address] documented in this enc ounter Plan of Treatment +--------+---------+ + + + | Date | Type | Specialty | Care Team | Description | +--------+---------+ + + + | 05/19/ | Lab | Phlebotomy | | | | 2018 | | | | | +--------+---------+ + + + | 05/19/ | Office | Hematology | Yari Garcia MD | | | 2018 | Visit | Malignancy | [address] | | | | | | [facility] | | | | | | [place], [place] | | | | | | [address] | | | | | | [phone] | | | | | | | | +--------+---------+ + + + documented as of this encounter Visit Diagnoses + + | Diagnosis | + + | 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
--- OUTSIDE RECORDS SUMMARY | ~2019-05-17 | XMS | Encounter Summary ---
Demographics + + + | Address | [address] | | | [place] [address] | + + + | Home Phone | | + + + | Preferred Language | Unknown | + + + | Marital Status | | + + + | Lutheran Affiliation | SPI | + + + | Race | White | + + + | Ethnic Group | Not or | + + + Author + + + | Author | [facility] | + + + | Organization | [facility] | + + + | Address | Unknown | + + + | Phone | Unavailable | + + + Support + + +---------+ + | Name | Relationship | Address | Phone | + + +---------+ + | Gabriel Kelly | ECON | Unknown | | + + +---------+ + Care Team Providers + +------+ + | Care Dough Mixer Helper Name | Role | Phone | + +------+ + | Zayda Hinton | PCP | | + +------+ + Encounter Details +--------+ + + + + | Date | Type | Department | Care Team | Description | +--------+ + + + + | 07/15/ | Pharmacy | Specialty Pharmacy | | | | 2015 | Visit | Services [address] | | | | | | [address] | | | | | | [place], [place] | | | | | | [address] | | | | | | [phone] | | | +--------+ + + + [...] [place] | | | | | | [address] | | | | | | [phone] | | | | | | | | +--------+---------+ + + + documented as of this encounter Visit Diagnoses Not on filedocumented in this encounter"
--- OUTSIDE RECORDS SUMMARY | ~2019-05-17 | XMS | Encounter Summary ---
Demographics + + + | Address | [address] | | | [place] [address] | + + + | Home Phone | | + + + | Preferred Language | Unknown | + + + | Marital Status | | + + + | [place] Affiliation | SPI | + + + | Race | White | + + + | Ethnic Group | Not or | + + + Author + + + | Author | [facility] | + + + | Organization | [facility] | + + + | Address | Unknown | + + + | Phone | Unavailable | + + + Support + + +---------+ + | Name | Relationship | Address | Phone | + + +---------+ + | Gabriel Kelly | ECON | Unknown | | + + +---------+ + Care Team Providers + +------+ + | Care Screwmaker Automatic Name | Role | Phone | + +------+ + | No Pcp Per Patient | PCP | Unavailable | + +------+ + Reason for Visit AUTH/CERT +--------+--------+ + + + + | Status | Reason | Specialty | Diagnoses / | Referred By | Referred To | | | | | Procedures | Contact | Contact | +--------+--------+ + + + + | | | | | | | +--------+--------+ + + + + Encounter Details +--------+ + + + + | Date | Type | Department | Care Team | Description | +--------+ + + + + | 09/07/ | Hospital | [facility] [address] | Lobo Jeffers, | | | 2017 - | Encounter | [address] | [address] | | | | | Josie Barry | [address] | | | 09/08/ | | [place] | [place] | | | 2017 | | [address] | [address] | | | | | [phone] | [phone] | | | | | | | | +--------+ + + + [...] + + + | Blood Pressure | 137/80 | 09/08/2016 11:11 AM | | | | | PST | | + + + + + | Pulse | 86 | 09/08/2016 11:11 AM | | | | | PST | | + + + + + | Temperature | 37.6 C (99.7 F) | 09/08/2016 4:33 AM | | | | | PST | | + + + + + | Respiratory Rate | 16 | 09/08/2016 4:33 AM | | | | | PST | | + + + + + | Oxygen Saturation | 100% | 09/08/2016 11:11 AM | | | | | PST | | + + + + + | Inhaled Oxygen | - | - | | | Concentration | | | | + + + + + | Weight | 83 kg (182 lb 15.7 | 09/07/2016 6:00 AM | | | | oz) | PST | | + + + + + | Height | 190.5 cm (6' 3") | 09/07/2016 6:00 AM | | | | | PST | | + + + + + | Body Mass Index | 22.87 | 09/07/2016 6:00 AM | | | | | PST | | + + + + + documented in this encounter Discharge Summaries Latonya Paul NP - 09/08/2016 12:15 PM PST [facility] DEPARTMENT OF ORTHOPAEDICS & REHABILITATION INPATIENT HOSPITAL DISCHARGE SUMMARY & INTERDISCIPLINARY INSTRUCTIONS Patient: Khurram Kelly [facility]: [id number] Admission Date: 09/07/2016 Discharge Date: 09/08/2016 Attending Physician: Lobo Jeffers MD PCP: No Pcp Per PATIENT Service: [facility] Orthopaedics & Rehabilitation Diagnoses Principal Final Diagnosis: 1.Avascular necrosis, left femoral head. 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 The inpatie nt stay related to this procedure(s) took an uncomplicated perioperative course and the maxx ent was followed closely by the attending providers, resident providers, and medical/nursing staff. Post operatively, the patient was admitted to the hospital for convalescent care. Pain control was managed with iv/po pain medication as needed. The Patient was given 24hrs of IV antibiotics post-operatively. For DVT prophylaxis the patient was started on aspirin a nd SCDs and RAUL hose were also used. The patient made appropriate gains toward activity an d functional goals while an inpatient, working daily with physical therapy. [facility] the patient tolerated oral intake sufficient to maintain nutrition and hydrati on. The surgical wound remained clean, dry, and intact without signs concerning for infectio n. The patient was felt appropriate for discharge to home, and the patient and/or family nd mbers agree with this course of action. Diet Regular Regular diet- There are no restrictions to your diet for the procedure. Please continue to follow any diet restrictions that you had prior to this admission. Wound Care -If you have sutures or kwabena, do not get your wound wet for 3-5 days after your operatio n. Sponge bath or cover the incision with a waterproof bandage. Keep your incision covered w ith a dressing until there is no discharge on bandage.- If you have Steri-Strips (paper tape ) over your incision, keep the incision covered until there is no discharge on bandage. Do n ot remove Steri-Strips, they will fall off on their own. Trim edges of the Steri-Strips if t hey start to peel up. Do not get your wound wet for 5-7 days after your operation.- Once wou nd is closed (no drainage), you may shower. Let water run over wound. Pat dry. Do not scrub or soak wound in water.- Avoid using lotions, powders, oils, or ointments on your incision.- DO NOT let anyone start you on antibiotics if they suspect your wound is infected. Call [facility] Orthopedics first at [phone]. Activity Weight bear as tolerated on both lower extremities. Restrictions: Posterior hip precautions on operative side (no hip flexion >90 degrees, no c rossing your legs, no turning your foot towards the middle of the body (internal rotation). Destination: Destination: Home Condition on Discharge Stable Follow-Up Appointments ORTHOPEDICS OUTPATIENT CLINIC: Future Appointments Provider Department Dept Phone Center 09/11/2016 8:30 AM [facility] for H[facility]ologic Malignancies at [facility] [phone] Center for H 09/11/2016 9:25 AM Yari Garcia; [facility] SUPPORT Center for Hematologic Malignancies at [facility] [phone] Center for H 09/20/2016 10:45 AM Janette Das Orthopaedics at [facility] [phone] Orthopedics 10/18/2016 10:20 AM Lobo Jeffers Orthopaedics at [facility] [phone] Orthopedics Follow up in 2 weeks (or as previously scheduled). Call [phone] to confirm or schedule this appointment. PCP: As needed for any medical concerns not related to your surgery. Current Discharge Medication List START taking these medications Details acetaminophen 325 mg oral tablet Take 1-2 tablets by mouth every four hours as needed. Use this medication to help wean off your stronger opiate medication. DO NOT exceed 4000 mg in a 24 hr period. Indications: Pain Associated Diagnoses: Avascular necrosis of bone of left hip (HCC); Acute myelomonocytic l eukemia in remission (HCC) aspirin EC 325 mg oral tablet,delayed release (DR/EC) Take 1 tablet by mouth once daily. In dications: post-op DVT prevention Qty: 21 tablet, Refills: 0 Associated Diagnoses: Avascular necrosis of bone of left hip (HCC); Acute myelomonocytic l eukemia in remission (HCC) ondansetron ODT 4 mg oral tablet,disintegrating Dissolve 1 tablet in mouth every eight hour s as needed. Indications: Prevention of Post-Operative Nausea and Vomiting Qty: 12 tablet, Refills: 0 Associated Diagnoses: Avascular necrosis of bone of left hip (HCC) polyethylene glycol 17 gram/dose oral powder Mix 17 g in liquid and drink once daily as nee ded (1st line - for no BM for 2 days). Indications: Constipation Associated Diagnoses: Avascular necrosis of bone of left hip (HCC); Acute myelomonocytic l eukemia in remission (HCC) senna-docusate 8.6-50 mg oral tablet Take 1 tablet by mouth two times daily. Hold for diarr hea Indications: Constipation Associated Diagnoses: Avascular necrosis of bone of left hip (HCC); Acute myelomonocytic l eukemia in remission (HCC) CONTINUE these medications which have CHANGED or have new prescriptions Details oxyCODONE, immediate release, 10 mg oral tablet Take 1-2 tablets by mouth every three hours as needed. Indications: Pain Qty: 160 tablet, Refills: 0 CONTINUE these medications which have NOT CHANGED Details acyclovir 800 mg oral tablet Take 1 tablet by mouth two times daily. Qty: 60 tablet, Refills: 5 ALPRAZolam 0.5 mg oral tablet Take 1 tablet by mouth three times daily as needed. Indicatio ns: Anxiety Qty: 90 tablet, Refills: 0 Comments: amLODIPine 5 mg oral tablet Take one-half tablet by mouth once daily. Qty: 30 tablet, Refills: 2 beclomethasone 1 mg/mL oral suspension (compound) Take 1 mL by mouth four times daily. Mohamud e well and refrigerate. Please give 24 hours notice to compound medication. Discard after 14 days. Qty: 250 mL, Refills: 5 omeprazole 20 mg oral capsule,delayed release(DR/EC) Take 1 capsule by mouth before breakfa st. Qty: 30 capsule, Refills: 11 oxyCODONE CR 20 mg oral tablet,oral only,ext.rel.12 hr Take 1 tablet by mouth every twelve hours. Indications: Chronic Pain Qty: 60 tablet, Refills: 0 tacrolimus 1 mg oral capsule Take 1 capsule by mouth two times daily. Indications: preventi on of GvHD Qty: 60 capsule, Refills: 5 triamcinolone acetonide 0.1 % topical ointment Apply thin film to affected areas twice afia y. Qty: 454 g, Refills: 2 Comments: PLAN ONLY ALLOWS 120G PER FILL. 08/21 trimethoprim-sulfamethoxazole 160-800 mg oral tablet Take 1 tablet by mouth twice daily (ev gloriasunday and ). Qty: 16 tablet, Refills: 2 STOP taking these medications ondansetron 8 mg oral tablet Comments: Reason for Stopping: [facility] Orthopaedic Service Pain Policy At the 6-week post-operative hao, pain management will be reassessed and pain management r ecommendations may be modified by the discretion of the Provider. At the 3-month post-operative hao, the patient will be referred to pain management for tata oing pain of poly-trauma, referred to PCP, or transitioned to Tylenol. All refills must be requested through a pharmacy. The pharmacy may then either call the o ffice with a request or fax the request to clinic. Patients must give the Outpatient Clinic a minimum of 72 hours to refill or deny narcotic p rescription from the time that they receive request from pharmacy. Requests received after 3pm will not be processed until the following business day. Prescriptions will not be available through our office after-hours, weekends, and holidays. NO EXCEPTIONS. Deep Vein Thrombosis (Leg Blood Clot) Prevention DVT prophylaxis: You are at increased risk of forming a blood clot following your joint replacement. - We have recommended that you take Aspirin for 3 weeks following your surgery to decrease this risk. - See discharge prescriptions for administration instructions. - Call Orthopedic Clinic at [phone] if any persistent, localized swelling that does no t improve with time or elevation or if you have any persistent calf pain, shortness of breat h or chest pain. Contact Your Physician When to Call: 1. Difficulty breathing, chest pain or unusual shortness of breath; 2. Excessive bleeding, drainage, redness, swelling at the operative site (if the wound appe ars to be worse instead of better each day); 3. Fevers, chills, increased pain that is not relieved by pain medications; 4. Persistent nausea or vomiting; 5. Other specific concerns; Please call: - during business hours (8:00am - 4:30pm); - if after hours and ask for the orthopaedic surgery resident it consulting director. Additional Post-Op Instructions / What to Expect -CONSTIPATION - To prevent constipation you have been advised to purchase over the counter medications that will help you have a bowel movement. These medications include senna and mi ralax. Take these medications together until you have a bowel movement. Once you reach your goal, you can reduce or stop taking one or both medications. If you have loose or excessive stools stop taking the medication. Also keep in mind that eating a well balanced diet with p lenty of fruits and vegetables; proper hydration; and walking can also help encourage bowel movements. -Apply ice over the surgical site for 20 minutes at a time as needed for pain. -Avoid alcohol and smoking during the healing process. -You may experience numbness that is usually temporary. -There will be bruising and swelling that should improve in the first 2 weeks. -To reduce likelihood of falling at home, remove throw rugs, loose wires or other objects f rom floor and leave some lights on at night. - Elevate your extremity whenever possible to improve pain and swelling. Pain Management - You are advised to not drive, operate heavy equipment, or consume alcohol while on prescr iption narcotic pain medication. - Take a stool softener while taking narcotic pain medication in order to prevent constipat ion. - If you are running out of pain medication and feel that you will need more, call during business hours in order to get a new prescription. Please allow 48 hours for ref ills to be processed. - Schedule II narcotics can NOT be called in to a pharmacy. Please arrange for someone to p ick up your prescription or allow additional time for our clinic to mail you requested refil l. - On-call (after hours) MDs are not permitted to prescribe narcotic pain medications. - Prescriptions will not be available through our office on weekends or holidays. - Don't take Non-steroidal anti-inflammatory drugs (for example: Ibuprofen/Advil/Aleve) unt il approved by your orthopedic provider. Vital Signs on Discharge: Ht 1.905 m (6' 3"), Wt 83 kg (182 lb 15.7 oz), BP 112/58, Pulse 9 1, Temperature 37.6 C (99.7 F), RR 16, SpO2 98%, BMI 22.87 kg/(m^2). Condition on Discharge: Improved Discharging Patient To: Home Date and Time of Discharge Summary Completion: 09/08/2016, 12:15 PM Discharging Provider: Latonya Paul NP Discharging Attending: Lobo Jeffers MD Thank you for the opportunity to take care of Khurram [facility], it has been our pleasure. Latonya Paul NP [facility] Department of Orthopaedics & Rehabilitation [address] [place] [address] Mail Code: OP31 [facility] [phone] documented in this enc ounter Progress Notes Kanchan Luis MD - 09/08/2016 10:14 AM PSTFormatting of this note might be different fr om the original. [facility] DEPARTMENT OF ORTHOPAEDICS & REHABILITATION Progress Note Patient: Khurram Kelly Date: 09/08/2016 Admitted: 09/07/2016 Hospital Day: 1 Attending Physician: Lobo Jeffers MD Diagnosis(es): 1. AVN left hip Orthopaedic Procedure(s): 1. L CHRISTIE Subjective: Khurram Kelly is a 26 y.o. male who is postoperative day #1 from the above pro cedure(s). - No acute events - Emesis this AM, reports he has issues with this baseline Objective: Last Vitals: Pulse: 91 BP: 112/58 Temp: 37.6 C (99.7 F) SpO2: 98 % Resp: 16 Focused Exam: General: appropriate, oriented Respiratory: regular, appropriate effort, not auscultated MSK: LLE: dressing c/d/i, actively plantar and dorsiflexes ankle, extends great to, SILT at the foot including first dorsal web space, toes wwp. Assessment & Plan: Khurram Kelly is a 26 y.o.M with the diagnoses/procedures listed above. - Likely DC this afternoon pending pain control and nausea Care Protocol Items: 2. Immobility due to illness 1. PT/OT: Ordered 2. Weight bearing: weight bearing as tolerated, left lower extremity 3. ROM: posterior hip precautions 3. VTE prophylaxis: high risk, sequential compression devices, ASA 325 4. Acute pain from illness: oral analgesia and IV analgesia, wean as possible 5. Infectious Disease: ceFAZolin, for 24 hours perioperatively 6. Special Concerns: post-op imaging reviewed, diez out POD#1 7. Disposition: Continue acute inpatient care 8. Orthopaedic Follow-up: As scheduled 9. Anticipated Discharge: Likely Today Kanchan Luis MD 09/08/2016 [facility] Department of Orthopaedics & Rehabilitation [address] [place] [address] Mail Code: OP31 [facility] [id number] Kanchan Amado MD - 09/07/2016 10:51 AM PST [facility] DEPARTMENT OF ORTHOPAEDICS & REHABILITATION POST-OPERATIVE CHECK Patient: Khurram Kelly Date: 09/07/2016 Admitted: 09/07/2016 Hospital Day: 0 Attending Physician: Lobo Jeffers MD Diagnosis(es): 1. AVN left hip Orthopaedic Procedure(s): 1. L CHRISTIE Subjective: Khurram Kelly is a 26 y.o. male who is postoperative day #0 from the above pro cedure(s). Overall he is doing well. Objective: Last Vitals: Pulse: 53 BP: 115/66 Temp: 36.5 C (97.7 F) SpO2: 99 % Resp: 11 Focused Exam: General: appropriate, oriented Respiratory: regular, appropriate effort, not auscultated MSK: LLE: dressing c/d/i, actively plantar and dorsiflexes ankle, extends great to, SILT at the foot including first dorsal web space, toes wwp. Assessment & Plan: Khurram Kelly is a 26 y.o.M with the diagnoses/procedures listed above, experi encing a(an) At Expected Level postoperative course. POSTOPERATIVE PLAN: - Please refer to brief operative note for complete details of the post-operative plan. - Postop xray reviewed Kanchan Luis MD 09/07/2016 Pending Sale To [facility] Department of Orthopaedics & Rehabilitation [address] [place] [address] Mail Code: OP31 [facility] [id number] [email or web address] Pager: [phone] documented in this e ncounter Plan of [...] 2019 | Visit | Malignancy | [address] | | | | | | [address] | | | | | | [place], [place] | | | | | | [address] | | | | | | [phone] | | | | | | | | +--------+---------+ + + + documented as of this encounter Procedures + +--------+ + + + | Procedure Name | Priori | Date/Time | Associated Diagnosis | Comments | | | ty | | | | + +--------+ + + + | BASIC METABOLIC SET | Routin | 09/08/2016 | | Results for this | | (NA, K, CL, TCO2, | e | 10:54 AM | | procedure are in the | | BUN, CR, GLU, CA) | | PST | | results section. | + +--------+ + + + | OPERATION RECORD | | 09/08/2016 | | Results for this | | | | 9:12 AM | | procedure are in the | | | | PST | | results section. | + +--------+ + + + | CBC (HEMOGRAM) ONLY | Urgent | 09/08/2016 | | Results for this | | | | 5:55 AM | | procedure are in the | | | | PST | | results section. | + +--------+ + + + | CBC ONLY | Urgent | 09/08/2016 | | Results for this | | | | 5:55 AM | | procedure are in the | | | | PST | | results section. | + +--------+ + + + | PROCEDURE NOTE | Routin | 09/07/2016 | | Results for this | | | e | 7:34 PM | | procedure are in the | | | | PST | | results section. | + +--------+ + + + | X-RAY PELVIS 1 VIEW | Routin | 09/07/2016 | | Results for this | | | e | 9:57 AM | | procedure are in the | | | | PST | | results section. | + +--------+ + + + | CAPILLARY BLOOD | Routin | 09/07/2016 | Avascular necrosis | Results for this | | GLUCOSE (NO CHG), | e | 9:34 AM | of bone of left hip | procedure are in the | | POC | | PST | ([facility]) | results section. | + +--------+ + + + | CAPILLARY BLOOD | Routin | 09/07/2016 | Avascular necrosis | Results for this | | GLUCOSE (NO CHG), | e | 9:30 AM | of bone of left hip | procedure are in the | | POC | | PST | (HCC) | results section. | + +--------+ + + + | PROCEDURE NOTE | Routin | 09/07/2016 | | Results for this | | | e | 9:08 AM | | procedure are in the | | | | PST | | results section. | + +--------+ + + + | TOTAL HIP | Electi | 09/07/2016 | AVASCULAR NECROSIS | | | ARTHROPLASTY | ve | 7:27 AM | LEFT FEMORAL HEAD | | | | Surgic | PST | | | | | al | | | | + +--------+ + + + | CAPILLARY BLOOD | Routin | 09/07/2016 | Avascular necrosis | Results for this | | GLUCOSE (NO CHG), | e | 7:17 AM | of bones of both | procedure are in the | | POC | | PST | hips (HCC) | results section. | + +--------+ + + + | INTRAPROCEDURE | Routin | 09/07/2016 | | Results for this | | IMAGING | e | 6:02 AM | | procedure are in the | | | | PST | | results section. | + +--------+ + + + | CARDIOLOGY | | 09/07/2016 | | Results for this | | | | 12:00 AM | | procedure are in the | | | | PST | | results section. | + +--------+ + + + | SURGICAL PATHOLOGY | Routin | 09/07/2016 | | Results for this | | | e | | | procedure are in the | | | | | | results section. | + +--------+ + + + documented in this encounter Results BASIC METABOLIC SET (NA, K, CL, TCO2, BUN, CR, GLU, CA) (09/08/2016 10:54 AM PST) + +---------+ + + + | Component | Value | Ref Range | Performed | Pathologist | | | | | At | Signature | + +---------+ + + + | GLUCOSE, | 126 (H) | 60 - 99 mg/dL | [facility] | | | PLASMA | | | LABORATORY | | | (LAB) | | | SERVICES, | | | | | | CORE | | + +---------+ + + + | BUN, PLASMA | 5 (L) | 6 - 20 mg/dL | [facility] | | | (LAB) | | | LABORATORY | | | | | | SERVICES, | | | | | | CORE | | + +---------+ + + + | CREATININE | 0.75 | 0.70 - 1.30 | [facility] | | | PLASMA | | mg/dL | LABORATORY | | | (LAB) | | | SERVICES, | | | | | | CORE | | + +---------+ + + + | EGFR | >60 | >60 mL/min | [facility] | | | - | | | LABORATORY | | | AUSTR[place]IAN | | | SERVICES, | | | | | | CORE | | + +---------+ + + + | EGFR NON | >60 | >60 mL/min | [facility] | | | -JOANNE | | | LABORATORY | | | RICAN | | | SERVICES, | | | | | | CORE | | + +---------+ + + + | SODIUM, | 138 | 136 - 145 | [facility] | | | PLASMA | | mmol/L | LABORATORY | | | (LAB) | | | SERVICES, | | | | | | CORE | | + +---------+ + + + | POTASSIUM, | 3.9 | 3.4 - 5.0 | [facility] | | | PLASMA | | mmol/L | LABORATORY | | | (LAB) | | | SERVICES, | | | | | | CORE | | + +---------+ + + + | CHLORIDE, | 101 | 97 - 108 mmol/L | [facility] | | | PLASMA | | | LABORATORY | | | (LAB) | | | SERVICES, | | | | | | CORE | | + +---------+ + + + | TOTAL CO2, | 24 | 21 - 32 mmol/L | [facility] | | | PLASMA | | | LABORATORY | | | (LAB) | | | SERVICES, | | | | | | CORE | | + +---------+ + + + | CALCIUM, | 9.3 | 8.6 - 10.2 | [facility] | | | PLASMA | | mg/dL | LABORATORY | | | (LAB) | | | SERVICES, | | | | | | CORE | | + +---------+ + + + | ANION GAP | 13 | mmol/L | [facility] | | | [...] Interpretive Information: <60 mL/min/1.73 sq m | SERVICES, CORE | | Chronic Kidney Disease <15 [...] | + + + + + | [facility] | [address] | [place] [address] | | | SERVICES, CORE | [address] | | | + + + + + OPERATION RECORD (09/08/2016 9:12 AM PST) + + | Procedure Note | + + | Lobo Jeffers MD - 09/07/2016 10:29 AM PST Date of Service: 09/07/2016 | | Attending Surgeon:Lobo Jeffers MD Bi Architect(s):Janette Begum | | SIDNEY Das, Orthopedic PA. Janette was used as the political science research assistant, as there were no | | available orthopedic residents. Preoperative Diagnosis: Avascular | | necrosis, left femoral head.Postoperative Diagnosis: Avascular necrosis, left femoral | | head.Procedure: Left total hip arthroplasty.Anesthesia: Spinal with monitored | | anesthesia.Estimated Blood Loss: 200 mL.Tourniquet Time: Zero.Specimen: Femoral | | head.Drains: None.Complications: None apparent.Components: A Jeny trabecular metal | | femur, size 13, high offset; modular acetabulum, size 56, with a single screw, standard | | poly; and a ceramic 36 +0 head.Indications: The patient is a 26-year-old male who has a | | history of leukemia. He has undergone therapy for leukemia and as a result, has | | developed avascular necrosis of bilateral femoral heads. The left side is more | | symptomatic than the right and he requests total hip arthroplasty to maintain his | | ambulatory status.Procedure In Detail: The patient was properly identified and taken to | | the operating room. He was placed in a supine position and given a spinal anesthetic. | | He was then rolled to a lateral decubitus position with the right side down. He was | | prepped and draped in a fashion to allow access to the left hip. His posterior approach | | was used. It was carried with electrocautery down to the subcutaneous tissue. The | | fascial plane was opened. The gluteal fibers were split. The external rotators were | | taken down. The capsule was then opened. The femoral head was then dislocated. | | Retractors were placed anterior and posterior around the femoral neck. The femoral head | | was then removed. Retractors were placed anterior and posterior around the acetabulum. | | The remaining labrum was then removed. The acetabulum was sequentially reamed to a | | size 56, where there was good appearing bleeding bone. An acetabular cup was then | | impacted in place. A single screw was placed into the weightbearing dome. The | | acetabular liner was then impacted in place for a 36 standard liner. Retractors were | | then placed around the proximal portions of the femur. The remaining soft tissue from | | the piriformis fossa was removed. A box chisel was used to open the canal followed by a | | canal seeker. A lateralizer was then used to ensure we had maximized the lateral for | | that side. The canal was then sequentially reamed to a size 13. It was then | | sequentially broached to a size 13. As the patient had a long femoral neck, the | | decision was made to trial a high offset prosthesis. This was tried with a +0 femoral | | head and had an excellent range of motion. The trial components were then removed. The | | final component was impacted in place. The overall length appeared to be appropriate | | with the trial 0 head. The range of motion was excellent, allowing greater than 120 | | degrees of flexion, internal rotation to nearly 90 degrees, external rotation to the | | maximum of the soft tissue, with no evidence of lift-off in any position. The trial | | head was then removed. The final head was impacted in place. The range of motion | | appeared to be identical. Closure consisted of irrigating the joint substantially with | | saline. Once this was completed, we then soaked with a dilute Betadine solution 1:20, | | for approximately 3 minutes. We then irrigated again the joint surface to remove all | | remaining Betadine. There was minimal bleeding at this juncture, so a decision was made | | not to place a drain. The capsule was repaired with 0 Vicryl in [id number]-[id number] | | fashion. The gluteal fibers and the IT band were repaired with 0 Vicryl in | | loipsz-sy-kdzes fashion. The subcutaneous tissue was repaired with 2-0 Vicryl in an | | interrupted fashion. The skin was repaired with a V-Loc. Dressings consisted of | | Steri-Strips, and Mepilex dressing. The patient was then awakened and returned to the | | recovery room.Postoperative Plan: The patient can be weightbearing as tolerated. | | Posterior hip precautions and discharged when stable.Lobo Jeffers MDJBH/MODLDD: | | 09/07/2016 09:13:48DT: 09/07/2016 10:29:24Job #: [id number] | |Postoperative Plan: The patient can be weightbearing as tolerated. Posterior hip precauti ons and discharged when stable. | | | | | | | |Lobo Jeffers MD | |BRENDA/RADHAL | | | | | | /[id number] | + + CBC (HEMOGRAM) ONLY (09/08/2016 5:55 AM PST) + + + + + + | Component | Value | Ref Range | Performed | Pathologist | | | | | At | Signature | + + + + + + | WHITE CELL | 10.39 | 3.50 - 10.80 | [facility] | | | COUNT | | K/cu mm | LABORATORY | | | | | | SERVICES, | | | | | | CORE | | + + + + + + | RED CELL | 3.81 (L) | 4.50 - 6.00 | [facility] | | | COUNT | | M/cu mm | LABORATORY | | | | | | SERVICES, | | | | | | CORE | | + + + + + + | HEMOGLOBIN | 12.0 (L) | 13.5 - 17.5 | [facility] | | | | | g/dL | LABORATORY | | | | | | SERVICES, | | | | | | CORE | | + + + + + + | HEMATOCRIT | 35.0 (L) | 41.0 - 53.0 % | [facility] | | | | | | LABORATORY | | | | | | SERVICES, | | | | | | CORE | | + + + + + + | MCV | 91.9 | 80.0 - 96.0 fL | [facility] | | | | | | LABORATORY | | | | | | SERVICES, | | | | | | CORE | | + + + + + + | MCHC | 34.3 | 33.0 - 35.5 | [facility] | | | | | g/dL | LABORATORY | | | | | | SERVICES, | | | | | | CORE | | + + + + + + | RDW SD | 41.9 | 35.1 - 46.3 fL | [facility] | | | | | | LABORATORY | | | | | | SERVICES, | | | | | | CORE | | + + + + + + | PLATELET | 223 | 150 - 400 K/cu | [facility] | | | COUNT | | mm | LABORATORY | | | | | | SERVICES, | | | | | | CORE | | + + + + + + | MPV | 8.2 (L) | 9.7 - 12.3 fL | [...] Performed At | + + + | New adult WBC reference ranges effective May 24, 2016. | [facility] | | | LABORATORY | | | SERVICES, CORE | + + + + + + + + | Performing | Address | City/State/Zipcode | Phone Number | | Organization | | | | + + + + + | [facility] | [address] | [place] [address] | | | SERVICES, [place] | [address] | | | + + + + + PROCEDURE NOTE (09/07/2016 7:34 PM PST)X-RAY PELVIS 1 VIEW (09/07/2016 9:57 AM PST) + + | Specimen | + + | | + + + + + | Narrative | Performed At | + + + | EXAM: PELVIS 1 VIEW 09/07/16 09:45:11 HISTORY: Arthroplasty | [facility] | | COMPARISON: 07/25/2016 FINDINGS: A total hip arthroplasty has | RADIOLOGY VOICE | | been placed with resection of femoral head. The hardware projects in | RECOGNITION | | expected postoperative alignment without evidence of failure or | | | loosening. There are expected postoperative changes within the soft | | | tissues. 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 IMPRESSION: New left total hip arthroplasty without | | | apparent postoperative complication. I have personally reviewed | | | the images and, if necessary, edited the report. I agree with the | | | report as now presented. | | + + + + + | Procedure Note | + + | Service Account, Radiant Res In Interface - 09/07/2016 10:07 AM PST EXAM: PELVIS 1 | | VIEW 09/07/16 09:45:11HISTORY: ArthroplastyCOMPARISON: 07/25/2016FINDINGS: A total hip | | arthroplasty has been placed with resection of femoral head. The hardware projects in | | expected postoperative alignment without evidence of failure or loosening. There are | | expected postoperative changes within the soft tissues. Right femoral head osteonecrosis | | is not significantly changed.IMPRESSION: New left total hip arthroplasty without | | apparent postoperative complication.I have personally reviewed the images and, if | | necessary, edited the report. I agree with the report as now presented. | |A total hip arthroplasty has been placed with resection of femoral head. The hardware proje cts in expected postoperative alignment without evidence of failure or loosening. There are expected postoperative changes within | |the soft tissues. 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 | | | |IMPRESSION: | | | |New left total hip arthroplasty without apparent postoperative complication. | | | | | |I have personally reviewed the images and, if necessary, edited the report. I agree with t he report as now presented. | + + + +---------+ + + | Performing | Address | City/State/Zipcode | Phone Number | | Organization | | | | + +---------+ + + | [facility] | | | | | VOICE RECOGNITION | | | | + +---------+ + + CAPILLARY BLOOD GLUCOSE (NO CHG), POC (09/07/2016 9:34 AM PST) + +-------+ + + + | Component | Value | Ref Range | Performed | Pathologist | | | | | At | Signature | + +-------+ + + + | BLOOD | 78 | 60 - 99 mg/dL | [facility] | | | GLUCOSE, | | | [facility] | | | POC | | | [facility] | | | | | | OF CARE | | | | | | TESTS | | + +-------+ + + + + + | Specimen | + + | | + + + + + + + | Performing | Address | City/State/Zipcode | Phone Number | | Organization | | | | + + + + + | [facility] | [address] | [place], [place] | | | [facility] | [address] | [address] | | | TESTS | | | | + + + + + CAPILLARY BLOOD GLUCOSE (NO CHG), POC (09/07/2016 9:30 AM PST) + +---------+ + + + | Component | Value | Ref Range | Performed | Pathologist | | | | | At | Signature | + +---------+ + + + | BLOOD | 44 (AA) | 60 - 99 mg/dL | [facility] - | | | GLUCOSE, | | | [facility] | | | POC | | | [facility] | | | | | | OF CARE | | | | | | TESTS | | + +---------+ + + + + + | Specimen | + + | | + + + + + + + | Performing | Address | City/State/Zipcode | Phone Number | | Organization | | | | + + + + + | [facility] | [address] | [place], [place] | | | [facility] | [address] | [phone] | | | TESTS | | | | + + + + + PROCEDURE NOTE (09/07/2016 9:08 AM PST) + + + | Narrative | Performed At | + + + | Lobo Jeffers MD 09/07/2016 9:08 AM Brief Operative Note | | | Preop diagnosis:avascular necrosis left hip Postop | | | diagnosis:same Procedure:left total hip arthropasty Surgeon: | | | Zeyad Bi Architect:Audrey Beckett Estimated Blood Loss:200 | | | mls Tourniquet time:none Specimen:femoral head Drain:none | | | Components:jeny trabecular metal femur 13 high offset, modular | | | acetabulum 56 with single screw, standard poly, ceramic +0 36 hea | | | Post op plan:WBAT, posterior precautions, d/c when stable. | | + + + CAPILLARY BLOOD GLUCOSE (NO CHG), POC (09/07/2016 7:17 AM PST) + +-------+ + + + | Component | Value | Ref Range | Performed | Pathologist | | | | | At | Signature | + +-------+ + + + | BLOOD | 83 | 60 - 99 mg/dL | [facility] - | | | GLUCOSE, | | | [facility] | | | POC | | | [facility] | | | | | | OF CARE | | | | | | TESTS | | + +-------+ + + + + + | Specimen | + + | | + + + + + + + | Performing | Address | City/State/Zipcode | Phone Number | | Organization | | | | + + + + + | [facility] | [address] | [place], [place] | | | [facility] | [address] | [phone] | | | TESTS | | | | + + + + + INTRAPROCEDURE IMAGING (09/07/2016 6:02 AM PST) + + | Specimen | + + | | + + + + + | Narrative | Performed At | + + + | See admission or procedure notes for details of any intraprocedure | | | images obtained. | | + + + SURGICAL PATHOLOGY (09/07/2016) + + + + + + | Component | Value | Ref Range | Performed | Pathologist | | | | | At | Signature | + + + + + + | SURGICAL | SOURCE OF SPECIMEN:A | | [facility] | | | PATHOLOGY | Left femoral head | | DEPARTMENT | | | | Final Pathologic | | OF | | | | Diagnosis:Femoral head, | | PATHOLOGY | | | | left, total hip | | | | | | arthroplasty: - | | | | | | Bone and cartilage with | | | | | | mild reactive changes | | | | | | - Markedly | | | | | | hypocellular marrow with | | | | | | normal-appearing | | | | | | maturation Case | | | | | | seen by:Hao | | | | | | Jorge Luis/Student | | | | | | Boby Pham, | | | | | | M.Allegra, Ph.D./Pathologist | | | | | | Clinical | | | | | | History:The patient is a | | | | | | 26-year-old male with | | | | | | avascular necrosis of | | | | | | the leftfemoral head and | | | | | | 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 Gross | | | | | | Description:Received is | | | | | | one fresh specimen | | | | | | labeled with patient MRN | | | | | | [id number] and | | | | | | "leftfemoral head".A. | | | | | | Left femoral head: | | | | | | Received is a 5.5 x 5 x | | | | | | 4 cm femoral head with | | | | | | anattached 2.9 cm | | | | | | femoral neck, with a | | | | | | clean cut margin. The | | | | | | articularsurface is | | | | | | smooth, farris with focal | | | | | | peripheral | | | | | | fibrillations. Specimen | | | | | | isserially sectioned and | | | | | | contains a | | | | | | wedge-shaped, yellow | | | | | | infarct withhyperemic | | | | | | border directly | | | | | | underneath the articular | | | | | | surface. No | | | | | | obviouslesions are | | | | | | identified. | | | | | | Chief Learning Officer sections | | | | | | are | | | | | | submitted,decalcificatio | | | | | | n by hydrochloric acid. | | | | | | Cassette Index:A1: | | | | | | articular surfaceA2: | | | | | | business office representative margin | | | | | | (MZ) My | | | | | | electronic signature | | | | | | indicates that I have | | | | | | personally reviewed | | | | | | alldiagnostic slides, | | | | | | the gross and/or | | | | | | microscopic portion of | | | | | | thisreport and | | | | | | formulated the final | | | | | | diagnosis. | | | | | | Rendering Diagnostician: | | | | | | Gustavo Pham M.D., | | | | | | Ph.DPathologistElectroni | | | | | | florin Signed 09/12/2016 | | | | | | 10:19AM | | | | + + + + + + + + | Specimen | + + | | + + + + + | Narrative | Performed At | + + + | | | + + + + + + + + | Performing | Address | City/State/Zipcode | Phone Number | | Organization | | | | + + + + + | [facility] | [address] | [place] [address] | | | PATHOLOGY | [address] | | | + + + + + CARDIOLOGY (09/07/2016 12:00 AM PST) + + + | Narrative | Performed At | + + + | | | + + + documented in this encounter Visit Diagnoses + + | Diagnosis | + + | Avascular necrosis of bone of left hip (HCC) - Primary | + + | 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) Aseptic necrosis of head and neck of | | femur | + + | 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) Acute myeloid leukemia in remission | + + documented in this encounter Administered Medications + +--------+ +--------+------+------+ | Medication Order | MAR | Action | Dose | Rate | Site | | | Action | Date | | | | + +--------+ +--------+------+------+ | acetaminophen (TYLENOL) tablet | Given | 09/08/19 | 650 mg | | | | 325-650 mg 325-650 mg, oral, | | 17 3:49 | | | | | EVERY 4 HOURS NEEDED, Starting | | PM PST | | | | | Lupe 09/07/16 at 1157, Until Fri | | | | | | | 09/08/16 at 1954, mild pain, | | | | | | | multimodal pain control | | | | | | + +--------+ +--------+------+------+ +---+---+ | | | +---+---+ + +-------+ +--------+---+---+ | acyclovir (ZOVIRAX) tablet 800 | Given | 09/09/19 | 800 mg | | | | mg 800 mg, oral, TWICE DAILY, | | 17 11:17 | | | | | First dose on Sun09/07/16 at 1100, | | AM PST | | | | | Until Discontinued | | | | | | + +-------+ +--------+---+---+ +-------+ +--------+---+---+ | Given | 09/08/19 | 800 mg | | | | | 17 10:07 | | | | | | PM PST | | | | +-------+ +--------+---+---+ +---+---+ | | | +---+---+ + +-------+ +--------+---+---+ | amLODIPine (NORVASC) tablet 2.5 | Given | 09/09/19 | 2.5 mg | | | | mg 2.5 mg, oral, DAILY, First | | 17 11:17 | | | | | dose on Lupe 09/07/16 at 1100, Until | | AM PST | | | | | Discontinued | | | | | | + +-------+ +--------+---+---+ +---+---+ | | | +---+---+ + +-------+ +--------+---+---+ | aspirin EC tablet 325 mg 325 | Given | 09/09/19 | 325 mg | | | | mg, oral, DAILY, First dose on | | 17 11:16 | | | | | [facility] 09/07/16 at 1200, Until | | AM PST | | | | | Discontinued | | | | | | + +-------+ +--------+---+---+ +-------+ +--------+---+---+ | Given | 09/08/19 | 325 mg | | | | | 17 2:56 | | | | | | PM PST | | | | +-------+ +--------+---+---+ +---+---+ | | | +---+---+ + +-------+ +------+---+---+ | beclomethasone 1 mg/mL | Given | 09/09/19 | 1 mg | | | | suspension (compound) 1 mg 1 mg, | | 17 11:17 | | | | | oral, FOUR TIMES DAILY, First | | AM PST | | | | | dose on Sun09/07/16 at 1100, Until | | | | | | | Discontinued | | | | | | + +-------+ +------+---+---+ +-------+ +------+---+---+ | Given | 09/08/19 | 1 mg | | | | | 17 10:07 | | | | | | PM PST | | | | +-------+ +------+---+---+ | Given | 09/08/19 | 1 mg | | | | | 17 7:06 | | | | | | PM PST | | | | +-------+ +------+---+---+ +---+---+ | | | +---+---+ + +---------+ +-----+-------+---+ | ceFAZolin IV 1 gram in NS (MB+) | New Bag | 09/08/19 | 1 g | 100 | | | 1 g, intravenous, EVERY 8 | | 17 11:36 | | mL/hr | | | HOURS, 2 doses, First dose on Lupe | | PM PST | | | | | 09/07/16 at 1600, Last dose on Sun | | | | | | | 09/08/16 at 0000 | | | | | | + +---------+ +-----+-------+---+ +---------+ +-----+-------+---+ | New Bag | 09/08/19 | 1 g | 100 | | | | 17 4:30 | | mL/hr | | | | PM PST | | | | +---------+ +-----+-------+---+ +---+---+ | | | +---+---+ + +---------+ + + +---+ | lactated ringers IV 10 mL/hr, | New Bag | 09/08/19 | 10 mL/hr | 10 mL/hr | | | intravenous, PROCEDURE | | 17 7:18 | | | | | CONTINUOUS, Starting [facility] 09/07/16 | | AM PST | | | | | at 0615, Until Lupe 09/07/16 at 1133 | | | | | | + +---------+ + + +---+ +---+---+ | | | +---+---+ + + + +--------+ +---+ | lactated ringers IV 500 mL, | Rate/Dos | 09/08/19 | 500 mL | 75 mL/hr | | | intravenous, POSTPROCEDURE PRN, 1 | e Change | 17 11:51 | | | | | dose, Starting [facility] 09/07/16 at | | AM PST | | | | | 0824, Until Lupe 09/07/16 at 0933, | | | | | | | nausea/vomiting due to | | | | | | | dehydration | | | | | | + + + +--------+ +---+ +---------+ +--------+---+---+ | New Bag | 09/08/19 | 500 mL | | | | | 17 9:33 | | | | | | AM PST | | | | +---------+ +--------+---+---+ +---+---+ | | | +---+---+ + +---------+ + + +---+ | lactated ringers IV 75 mL/hr, | New Bag | 09/08/19 | 75 mL/hr | 75 mL/hr | | | intravenous, CONTINUOUS, Starting | | 17 10:40 | | | | | Lupe 09/07/16 at 1000, Until Fri | | AM PST | | | | | 09/08/16 at 1954 | | | | | | + +---------+ + + +---+ +---+---+ | | | +---+---+ + +-------+ +--------+---+ + | lidocaine (XYLOCAINE) 10 mg/mL | Given | 09/08/19 | 0.2 mg | | Left Arm | | (1 %) injection subcutaneous, | | 17 7:15 | | | | | PREPROCEDURE PRN, Starting Lupe | | AM PST | | | | | 09/07/16 at 0602, Until Lupe 09/07/16 | | | | | | | at 1133, IV start | | | | | | + +-------+ +--------+---+ + +---+---+ | | | +---+---+ + +-------+ +------+---+---+ | morphine injection 1-3 mg 1-3 | Given | 09/08/19 | 3 mg | | | | mg, intravenous, EVERY 2 HOURS | | 17 12:10 | | | | | NEEDED, Starting [facility] 09/07/16 at | | PM PST | | | | | 1157, Until Lupe 09/07/16 at 1234, | | | | | | | severe pain | | | | | | + +-------+ +------+---+---+ +---+---+ | | | +---+---+ + +-------+ +------+---+---+ | morphine injection 2 mg 2 mg, | Given | 09/08/19 | 2 mg | | | | intravenous, ONCE, 1 dose, [facility] | | 17 1:06 | | | | | 09/07/16 at 1315 | | PM PST | | | | + +-------+ +------+---+---+ +---+---+ | | | +---+---+ + +-------+ +------+---+---+ | morphine injection 2-4 mg 2-4 | Given | 09/09/19 | 4 mg | | | | mg, intravenous, EVERY 2 HOURS | | 17 1:28 | | | | | NEEDED, Starting Lupe 09/07/16 at | | PM PST | | | | | 1232, Until Sun09/08/16 at 1954, | | | | | | | severe pain | | | | | | + +-------+ +------+---+---+ +-------+ +------+---+---+ | Given | 09/09/19 | 4 mg | | | | | 17 7:46 | | | | | | AM PST | | | | +-------+ +------+---+---+ | Given | 09/09/19 | 4 mg | | | | | 17 12:01 | | | | | | AM PST | | | | +-------+ +------+---+---+ +---+---+ | | | +---+---+ + +-------+ +-------+---+---+ | omeprazole (PRILOSEC) capsule | Given | 09/09/19 | 20 mg | | | | 20 mg 20 mg, oral, BEFORE | | 17 4:35 | | | | | BREAKFAST, First dose on Lupe | | AM PST | | | | | 09/07/16 at 1100, Until | | | | | | | Discontinued | | | | | | + +-------+ +-------+---+---+ +---+---+ | | | +---+---+ + +-------+ +------+---+---+ | ondansetron (ZOFRAN) injection | Given | 09/08/19 | 4 mg | | | | 4 mg 4 mg, intravenous, EVERY 12 | | 17 9:18 | | | | | HOURS NEEDED, Starting Lupe | | PM PST | | | | | 09/07/16 at 1201, Until 09/08/16 | | | | | | | at 1954, n/v, if unable to take | | | | | | | oral form of medication | | | | | | + +-------+ +------+---+---+ + +---+ | | | + +---+ | ondansetron ODT (ZOFRAN ODT) | | | tablet 4 mg 4 mg, oral, EVERY 8 | | | HOURS NEEDED, Starting Lupe | | | 09/07/16 at 1201, Until Sun09/08/16 | | | at 1953, nausea/vomiting, first | | | line | | + +---+ | | | + +---+ + +-------+ +-------+---+---+ | oxyCODONE (immediate release) | Given | 09/09/19 | 20 mg | | | | (ROXICODONE) tablet 10-20 mg | | 17 11:16 | | | | | 10-20 mg, oral, EVERY 3 HOURS | | AM PST | | | | | NEEDED, Starting Sun09/08/16 at | | | | | | | 0925, Until Sun09/08/16 at 1953, | | | | | | | moderate pain | | | | | | + +-------+ +-------+---+---+ +---+---+ | | | +---+---+ + +-------+ +-------+---+---+ | oxyCODONE (immediate release) | Given | 09/09/19 | 15 mg | | | | (ROXICODONE) tablet 5-15 mg 5-15 | | 17 4:35 | | | | | mg, oral, EVERY 3 HOURS | | AM PST | | | | | NEEDED, Starting Lupe 09/07/16 at | | | | | | | 0923, Until Sun09/08/16 at 0925, | | | | | | | moderate pain | | | | | | + +-------+ +-------+---+---+ +-------+ +-------+---+---+ | Given | 09/08/19 | 15 mg | | | | | 17 10:07 | | | | | | PM PST | | | | +-------+ +-------+---+---+ | Given | 09/08/19 | 15 mg | | | | | 17 7:06 | | | | | | PM PST | | | | +-------+ +-------+---+---+ + +---+ | | | + +---+ | oxyCODONE (immediate release) | | | (ROXICODONE) tablet 1 dose, | | | Starting Lupe 09/07/16 at 1043, | | | Until Lupe 09/07/16 at 1043 | | + +---+ | | | + +---+ + +-------+ +-------+---+---+ | oxyCODONE CR (OXYCONTIN) tablet | Given | 09/09/19 | 20 mg | | | | 20 mg 20 mg, oral, EVERY 12 | | 17 11:57 | | | | | HOURS, First dose on Lupe 09/07/16 | | AM PST | | | | | at 2100, Until Discontinued | | | | | | + +-------+ +-------+---+---+ +-------+ +-------+---+---+ | Given | 09/08/19 | 20 mg | | | | | 17 10:07 | | | | | | PM PST | | | | +-------+ +-------+---+---+ +---+---+ | | | +---+---+ + +-------+ +--------+---+---+ | prochlorperazine (COMPAZINE) | Given | 09/09/19 | 2.5 mg | | | | injection 2.5 mg 2.5 mg, | | 17 7:15 | | | | | intravenous, EVERY 4 HOURS | | AM PST | | | | | NEEDED, Starting Lupe 09/07/16 at | | | | | | | 1202, Until Sun09/08/16 at 1954, | | | | | | | nausea/vomiting, third line | | | | | | + +-------+ +--------+---+---+ +-------+ +--------+---+---+ | Given | 09/09/19 | 2.5 mg | | | | | 17 12:05 | | | | | | AM PST | | | | +-------+ +--------+---+---+ +---+---+ | | | +---+---+ + +-------+ + +---+---+ | senna-docusate (SENOKOT S) | Given | 09/08/19 | 1 tablet | | | | 8.6-50 mg 1 tablet 1 tablet, | | 17 10:07 | | | | | oral, TWICE DAILY, First dose on | | PM PST | | | | | Lupe 09/07/16 at 2100, Until | | | | | | | Discontinued | | | | | | + +-------+ + +---+---+ +---+---+ | | | +---+---+ + +-------+ +------+---+---+ | tacrolimus (PROGRAF) capsule 1 | Given | 09/09/19 | 1 mg | | | | mg 1 mg, oral, TWICE DAILY, | | 17 11:16 | | | | | First dose on Lupe 09/07/16 at 2100, | | AM PST | | | | | Until Discontinued | | | | | | + +-------+ +------+---+---+ +-------+ +------+---+---+ | Given | 09/08/19 | 1 mg | | | | | 17 10:07 | | | | | | PM PST | | | | +-------+ +------+---+---+ +---+---+ | | | +---+---+ + +-------+ + +---+---+ | trimethoprim-sulfamethoxazole | Given | 09/08/19 | 1 tablet | | | | (BACTRIM DS,SEPTRA DS) 160-800 mg | | 17 10:07 | | | | | tablet 1 tablet 1 tablet, oral, | | PM PST | | | | | EVERY MON AND LUPE BID (2 times | | | | | | | per day on Sun), First dose | | | | | | | on Lupe 09/07/16 at 1100, Until | | | | | | | Discontinued | | | | | | + +-------+ + +---+---+ +---+---+ | | | +---+---+ documented in this encounter
--- OUTSIDE RECORDS SUMMARY | ~2019-05-17 | XMS | Encounter Summary ---
Demographics + + + | Address | [address] | | | [place] [address] | + + + | Home Phone | | + + + | Preferred Language | Unknown | + + + | Marital Status | | + + + | Sabianist Affiliation | SPI | + + + | Race | White | + + + | Ethnic Group | Not or | + + + Author + + + | Author | [facility] | + + + | Organization | [facility] | + + + | Address | Unknown | + + + | Phone | Unavailable | + + + Support + + +---------+ + | Name | Relationship | Address | Phone | + + +---------+ + | Gabriel Kelly | ECON | Unknown | | + + +---------+ + Care Team Providers + +------+ + | Care Heading Up Machine Operator Name | Role | Phone | + +------+ + | No Pcp Per Patient | PCP | Unavailable | + +------+ + Reason for Visit + + + | Reason | Comments | + + + | Medication | [facility] | | Adjustment | | + + + Encounter Details +--------+ + + + + | Date | Type | Department | Care Team | Description | +--------+ + + + + | 11/10/ | Telephone | Center for | Yari Garcia MD | Medication | | 2017 | | Hematologic | [address] | Adjustment ([facility] [place]) | | | | Malignancies at | [address] | | | | | [facility] | [place], [place] | | | | | [address] | [address] | | | | | Debi Burger Mailcode: | [phone] | | | | | [facility] | | | | | | [place], | | | | | | [place] [address] | | | | | | [phone] | | | +--------+ + + + [...] 2019 | Visit | Malignancy | [address] [facility] | | | | | | [address] | | | | | | [place], [place] | | | | | | [address] | | | | | | [phone] | | | | | | | | +--------+---------+ + + + documented as of this encounter Visit Diagnoses Not on filedocumented in this encounter"
--- OUTSIDE RECORDS SUMMARY | ~2019-05-17 | XMS | Encounter Summary ---
Demographics + + + | Address | [address] | | | [place] [address] | + + + | Home Phone | | + + + | Preferred Language | Unknown | + + + | Marital Status | | + + + | Spiritism Affiliation | SPI | + + + | Race | White | + + + | Ethnic Group | Not or | + + + Author + + + | Author | [facility] | + + + | Organization | [facility] | + + + | Address | Unknown | + + + | Phone | Unavailable | + + + Support + + +---------+ + | Name | Relationship | Address | Phone | + + +---------+ + | Gabriel Kelly | ECON | Unknown | | + + +---------+ + Care Team Providers + +------+ + | Care Respite Worker Name | Role | Phone | + +------+ + | Zayda Hinton | PCP | | + +------+ + Reason for Visit +--------+ + | Reason | Comments | +--------+ + | X-ray | | +--------+ + Encounter Details +--------+ + + + + | Date | Type | Department | Care Team | Description | +--------+ + + + + | 01/29/ | Telephone | Orthopaedics at | Lobo Jeffers, | X-ray | | 2019 | | [facility] [address] | [address] | | | | | [address] Mailcode: [id number] | [address] | | | | | [facility] | [place], [place] | | | | | and [place], | [address] | | | | | [facility] | [phone] | | | | | Floor [place], [place] | | | | | | [address] | | | | | | [phone] | | | +--------+ + + + [...] Visit | Malignancy | [address] [facility] | | | | | | [address] | | | | | | [place] | | | | | | [address] | | | | | | [phone] | | | | | | | | +--------+---------+ + + + documented as of this encounter Visit Diagnoses Not on filedocumented in this encounter"
--- OUTSIDE RECORDS SUMMARY | ~2019-05-17 | XMS | Encounter Summary ---
Demographics + + + | Address | [address] | | | [place] [address] | + + + | Home Phone | | + + + | Preferred Language | Unknown | + + + | Marital Status | | + + + | Taoist Affiliation | SPI | + + + | Race | White | + + + | Ethnic Group | Not or | + + + Author + + + | Author | [facility] | + + + | Organization | [facility] | + + + | Address | Unknown | + + + | Phone | Unavailable | + + + Support + + +---------+ + | Name | Relationship | Address | Phone | + + +---------+ + | Gabriel Kelly | ECON | Unknown | | + + +---------+ + Care Team Providers + +------+ + | Care Health Advocate Name | Role | Phone | + +------+ + | Pending Pcp Addition | PCP | Unavailable | + +------+ + Reason for Visit + + + | Reason | Comments | + + + | Transplant follow-up | | + + + Benefits Check (Routine) +--------+--------+ + + + + | Status | Reason | Specialty | Diagnoses / | Referred By | Referred To | | | | | Procedures | Contact | Contact | +--------+--------+ + + + + | Closed | | Hematology | Diagnoses | Non-[facility] | Jose, | | | | Malignancy | BMT | Epic Dept | Yari Jones MD | | | | | | | [address] | | | | | | | [address] | | | | | | | [place], | | | | | | | [place] | | | | | | | [address] | | | | | | | Phone: | | | | | | | [phone] | | | | | | | Fax: | | | | | | | [phone] | +--------+--------+ + + + + Encounter Details +--------+---------+ + + + | Date | Type | Department | Care Team | Description | +--------+---------+ + + + | 02/27/ | Office | Center for | Aspen Cummins FNP | S/P allogeneic bone | | 2016 | Visit | Hematologic | [address] | marrow transplant | | | | Malignancies at | [address] | (HCC) (Primary Dx) | | | | [facility] | [place], [place] | | | | | [address] | [address] | | | | | [address] Mailcode: | [phone] | | | | | [facility] [address] | | | | | | [place], | | | | | | [place] [address] | | | | | | [phone] | | | +--------+---------+ + + + [...] + + + | Blood Pressure | 133/71 | 02/28/2016 9:44 AM | | | | | PDT | | + + + + + | Pulse | 72 | 02/28/2016 9:44 AM | | | | | PDT | | + + + + + | Temperature | 36.6 C (97.8 F) | 02/28/2016 9:44 AM | | | | | PDT | | + + + + + | Respiratory Rate | 15 | 02/28/2016 9:44 AM | | | | | PDT | | + + + + + | Oxygen Saturation | 98% | 02/28/2016 9:44 AM | | | | | PDT | | + + + + + | Inhaled Oxygen | - | - | | | Concentration | | | | + + + + + | Weight | 97.5 kg (214 lb 15.2 | 02/28/2016 9:44 AM | | | | oz) | PDT | | + + + + + | Height | - | - | | + + + + + | Body Mass Index | 27.3 | 01/25/2016 8:24 AM | | | | | PDT | | + + + + + documented in this encounter Patient Instructions Patient Instructions Aspen Cummins FNP - 02/28/2016 11:03 AM PDT1. Stop xanax 2. Begin clonazepam 0.5 mg by mouth twice daily. If needed, you can take another 0.25 mg (1/2 tablet) in between the doses 3. I'll ask Kezia Stokes LCSW to reach out to you to talk about counseling options if you 're interested 4. Beware of sun exposure as this can cause [id number] disease. Wear a hat, sungla sses, and sunscreen or long sleeves when outside. 5. Decrease prednisone to 20 mg by mouth every other day alternating with 15 mg by mouth e very other day 6. Return to clinic to follow up with Yari Garcia MD on 03/06/16 or sooner as need ed. documented in this encounter Progress Notes Aspen Cummins FNP - 02/28/2016 8:07 AM PDT 02/28/2016 [facility] MD: Yari Garcia MD Primary Oncologist: Yari Garcia MD Diagnosis: AMML, primary refractory Transplant Date: 08/27/15 Donor: MM URD (DPB1 permissive antigen mismatch, male, [id number]) Identifying Data: Khurram Kelly is a 25 y.o. CM with a PMH of pericarditis who was in his [facility] until 03/13/15 (the night of his wedding) at which time he noted bilateral an kle pain and swelling. This persisted and worsened intermittently, progressing until he coul dn't bear weight. He presented to the ED, was diagnosed with cellulitis of the RLE and presc ribed antibiotics. He was noted to be pancytopenic with subsequent white blood cell differen tial identifying a predominance of early appearing monocytes. On 04/18/15 he noted pleuritic anterior chest pains, low-grade fevers occasionally up to 10 1 with swelling and erythema over his L ankle. He was evaluated at [facility] on 06/[address] angiogram negative [...] acute myelomonocytic leukemia. He was referred to [facility] for further evaluation and man agement of his newly dx'd AML. Pt was admitted to [facility] on 05/26/15. Peripheral blood was sent for [...] CD34, variable CD56, variable CD117, and dim NS160-hnxey mickey; promonocyte immunophenotype (70% by flow): CD11b, [...] Garcia MD. Due to disease persistence, he th en underwent treatment with decitabine 20mg/m2 on days 1-10 (07/19/15 - 07/28/15) which was un complicated. He did not have any fevers/infectious symptoms requiring further evaluation dur ing that time. His pretransplant marrow studies completed 08/09/15 showed a hypocellular (5%) marrow with ne renata absent hematopoiesis with 60% blast/promonocytes. Blast immunophenotype (9% by flow): C D13, CD33, CD34, dim CD56, CD117, and dim CD123 positive. Promonocyte immunophenotype (~50% by flow): CD11b, CD13, CD14, dim CD56, CD64, and HLA-DR positive. Cytogenetics 46,XY. Genetr ails remained positive for NRAS (~0.9%, previously ~40% in 05/23). He was then re-hospitalized from 08/18/15 through 09/13/15 for his tBuCy-conditioned unrelated donor PBSC transplant. His transplant hospitalization was complicated by pancytopenia, neut ropenic fever, pneumonia, mucositis (grade 3 at worst) with hematemesis, CINV, diarrhea, hyp ertension, rash, and conjunctival injection. 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 He is currently day +185 s/p transplant, day 8, c5 of azacitidine and [facility]. Interim History: Khurram was most recently evaluated in [facility] by me on 02/23/16. He continues to feel well overall. Eating very well, up at 02 00 this morning to snack. Tolerated his last cycle of azacitidine without c/o N/V. Remains active at home. Planning to go golfing tomorrow. Rash resolved. He notes ongoing anxiety for which he feels xanax is not working as well as it had been. He continues to take 1 mg po TID with additional dosing prn during the day. He cannot pinpoint anything that contributes to his anxiety however notes he often will take an extra dose whe n he has company visiting. The house they are currently living in is full of people and act ivity, kids around. Having responsibility for the kids makes him anxious. He would like to t ry a different medication and is amenable to counseling. Review of Systems Constitutional: Negative for fever, chills and malaise/fatigue. HENT: Negative for headaches, congestion and sore throat. Respiratory: Negative for cough and shortness of breath. Cardiovascular: Negative for chest pain and leg swelling. Gastrointestinal: Negative for nausea, vomiting, abdominal pain, diarrhea, blood in stool a nd melena. Genitourinary: Negative for dysuria and hematuria. Musculoskeletal: Negative for myalgias and joint pain. Skin: Negative for rash. Neurological: Negative for dizziness, tingling, tremors and weakness. Psychiatric/Behavioral: The patient is nervous/anxious. All other systems reviewed and are negative. Current Outpatient Prescriptions Medication Sig acyclovir 800 mg oral tablet Take 1 tablet by mouth two times daily. amLODIPine 5 mg oral tablet Take one-half tablet by mouth once daily. beclomethasone 1 mg/mL oral suspension (compound) Take 1 mL by mouth four times daily. budesonide 3 mg oral capsule,delayed,extend.release Take 1 capsule by mouth three times daily. clonazePAM 0.5 mg oral tablet Take 1 tablet by mouth two times daily. Indications: anxi ety hydrocortisone 1 % topical cream Apply topically to affected area two times daily. Appl y a thin film to clean, dry skin and rub in gently. magnesium oxide-mg amino acid chelate 133 mg oral tablet Take 133 mg elemental by mouth two times daily. OLANZapine (ZYPREXA) 10 mg oral tablet Take 1 tablet by mouth once daily at bedtime. omeprazole 20 mg oral capsule,delayed release(DR/EC) Take 1 capsule by mouth before babak akfast. predniSONE 10 mg oral tablet Take 20 mg (two tablets) by mouth every other day alternat ing with 15 mg (one and one-half tablets) every other day tacrolimus 0.5 mg oral capsule Take 0.5 mg (one capsule) by mouth twice daily triamcinolone acetonide 0.1 % topical cream Apply topically to affected area three time s daily. Apply thin film to affected areas. triamcinolone acetonide 0.1 % topical ointment Apply a thin film to affected areas. No current facility-administered medications for this visit. Allergies Allergen Reactions Chlorhexidine Towelette Rash PAVAN cloths - ok to use Chloraprep for dresssing change per pt. Filed Vitals: 02/28/2016 9:44 AM Weight: 97.5 kg (214 lb 15.2 oz) BP: 133/71 Pulse: 72 Temp: 36.6 C (97.8 F) TempSrc: Oral Resp: 15 SpO2: 98% PainSc: 0 - Zero BMI: 27.29 kg/(m^2) Physical Exam Constitutional: He is well-developed, well-nourished, and in no distress. cushingoid HENT: Head: Normocephalic and atraumatic. Mouth/Throat: Oropharynx is clear and moist. No oropharyngeal exudate. Eyes: Conjunctivae are normal. Pupils are equal, round, and reactive to light. Cardiovascular: Normal rate, regular rhythm, normal heart sounds and intact distal pulses. No murmur heard. Pulmonary/Chest: Effort normal and breath sounds normal. No respiratory distress. He has no wheezes. He has no rales. Abdominal: Soft. Bowel sounds are normal. He exhibits no distension. There is no tenderness . Musculoskeletal: He exhibits no edema. Neurological: He is alert. Skin: Skin is warm and dry. No rash noted. Psychiatric: Affect normal. Vitals reviewed. Lab Results Component Value Date WBC 11.6 02/28/2016 HB 11.3 02/28/2016 HCT 34.9 02/28/2016 PLT 145 02/28/2016 MCV 109.1 02/28/2016 RDW 60.3 11/22/2015 Lab Results Component Value Date BICARB 26 02/28/2016 TBILI 0.3 02/28/2016 CA 9.4 02/28/2016 CL 103 02/28/2016 CR 1.0 02/28/2016 GLU 132* 02/28/2016 AP 97 02/28/2016 TP 6.2* 02/28/2016 BUN 10 02/28/2016 ALB 3.4* 02/28/2016 AST 81* 02/28/2016 NA 139 02/28/2016 K 4.1 02/28/2016 ALT 200* 02/28/2016 Assessment/Plan: 1. Hematology: Khurram Kelly is currently day +185 s/p tBuCy-conditioned unrel ated donor PBSC transplant for primary refractory AML. His most recent marrow studies comple edward 11/22/15 showed a hypocellular marrow (patchy 15%) with trilineage hematopoiesis and no m orphologic and immunologic evidence of acute leukemia. Karyotype 46,XY[19]. VNTR showed no d etectable host cells. 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 He began maintenance azacitidine on 11/01/15, currently c8, day 5 . Slight decrease in peripheral blood counts over the last week due to recent chemo; no evid ence of disease by peripheral smear. --> continue CBC q1 week --> plan to complete 6 cycles of post-transplant azacitidine due to active disease at time of transplant; c6 due to begin 03/20/16 --> repeat marrow studies after c6 of azacitidine 2. Fwjsf-jc-Tjty Disease: Skin bx due to mild rash [08/27/15] showed subtle vacuolar interfa ce dermatitis most c/w early mild GvHD. Rash progressed to ~56% BSA at worst on 09/15/15; pred nisone 1 mg/kg was initiated. He initially responded but flared during taper. He also develo ped low-level nausea and abd discomfort concerning for GvHD, empirically treated with oral n on-absorbables with resolution. He had tapered prednisone to 10 mg po daily and began a tacr olimus taper on 12/16/15, then developed new joint symptoms concerning for serosal involvement of GvHD. CK WNL, aldolase slightly increased; not c/w serosal involvement of GVHD given cli nical course. Prednisone was increased to 20 mg po daily then tapered back to 10 mg po daily over 6 days. He then developed a rash for which he was seen in the ED in [place] in late 01/21. Prednisone was increased back to 20 mg po daily. Skin bx 02/10/16 showed vaculolar inter face mixed dermatitis with eosinophils. DDx included GvHD and drug hypersensitivity reaction . Rash resolved with increased dose prednisone. Stable transaminitis noted; ddx includes GvH D, medications, iron overload, fatty liver. --> decrease prednisone to 20 mg po every other day alt with 15 mg po every other day --> if LFTs > 500, liver bx for definite dx prior to initiation of HD steroids --> continue tacrolimus 0.5 mg bid without additional taper --> continue oral non-absorbables 3. Infectious Disease: Afebrile without localizing s/s infection. He continues prophylactic acyclovir and monthly pentamidine. Completed a treatment course of valganciclovir for CMV r eactivation on 12/16/15. His most recent CMV PCR on 02/21/16 remains undetected. Immune reconst itution panel collected 11/22/15 showed normal total T cells with increased CD8+ T cell subse ts, normal total NK cells, decreased B cells with decreased margarita B cells and minimal immun e activation with CD4 count 385. Post transplant vaccines currently on hold due to azacitidi ne maintenance therapy. --> continue acyclovir, monthly pentamidine (dosed 02/25/16) --> if peripheral counts remain stable through this cycle of azacitidine, change to bactrim prophylaxis --> due to CMV reactivation prior to day +100, continue to monitor PCRs q1-2 weeks through day +270 Lab Results Component Value Date CMVQUANTPCR Undetected 02/21/2016 CMVQUANTPCR Undetected 02/16/2016 CMVQUANTPCR Undetected 02/07/2016 CMVQUANTPCR Undetected 01/31/2016 4. Fluid, Electrolyte and Nutrition: Appetite is good, eating well with adequate po fluid i ntake. No further c/o nausea. His electrolytes are reviewed and are within acceptable limits . --> continue a well balanced diet --> maintain hydration --> continue po Mg++ supplements as prescribed 5. Cardiovascular: Pretransplant TTE completed 08/10/15 showed a LVEF of 55-60%. 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 --> continue current meds --> anticipate HTN will improve as tacrolimus tapers 6. Psychosocial: Hx of anxiety, previously well controlled with xanax TID. Notes increase in anxiety or decreased effectiveness of xanax. Initially did not feel he would benefit fro m counseling, however he agrees it may help him identify the root of his anxiety. --> d/c xanax --> clonazepam 0.5 mg po BID with 0.25 mg po q8h prn breakthrough --> can titrate clonazepam q3 days as tolerated for ongoing anxiety, max dose 4 mg po daily --> referral to [facility] for assistance establishing counseling 7. Follow up --> RTC to f/u with Yari Garcia MD on 03/06/16, sooner prn [facility] AT [address]code: [id number] [address] documented in this enc ounter Plan of [...] 2018 | Visit | Malignancy | [address] [facility] [address] [address] [facility] [address] | | | | | | [address] | | | | | | [place], [place] | | | | | | [address] | | | | | | [phone] | | | | | | | | +--------+---------+ + + + documented as of this encounter Visit Diagnoses + + | Diagnosis | + + | 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
--- OUTSIDE RECORDS SUMMARY | ~2019-05-17 | XMS | Encounter Summary ---
Demographics + + + | Address | [address] | | | [place] [address] | + + + | Home Phone | | + + + | Preferred Language | Unknown | + + + | Marital Status | | + + + | Mu-Ism Affiliation | SPI | + + + [...] Team Providers + +------+ + | Care Fagot Heater Name | Role | Phone | + +------+ + | Pending Pcp Addition | PCP | Unavailable | + +------+ + Reason for Visit + + + | Reason | Comments | + + + | Lab Draw | Trifusion | + + + | Dressing change | Trifusion | + + + | Follow-up visit | quincy cummins NP | + + + | Chemotherapy | vidaza | + + + Chemotherapy (Routine) +--------+---------+ + + + + | Status | Reason | Specialty | Diagnoses / | Referred By | Referred To | | | | | Procedures | Contact | Contact | +--------+---------+ + + + + | Closed | Other | Hematology | Diagnoses | Cook, | [facility] | | | | Malignancy | Acute | Yari Jones MD | Infusion | | | | | myelomonocyt | [address] | | | | | ic leukemia, | [address] | Paulina | | | | | not having | Wally Burger | [address] | | | | | achieved | [place], [place] | Mailcode: | | | | | remission | [id number] | [id number] | | | | | Procedures | Phone: | [place] | | | | | [place] | [phone] | Pavilion | | | | | AZACITIDINE | Fax: | [place], [place] | | | | | INJECTION, 1 | [phone] | [address] | | | | | [place] | | Phone: | | | | | [facility] | | [phone] | | | | | INFSN,1 HR | | Fax: | | | | | [place] [facility] | | [phone] | | | | | INFSN,ADDL | | | | | | | HR Vidaza | | | +--------+---------+ + + + + Encounter Details +--------+ + + + + | Date | Type | Department | Care Team | Description | +--------+ + + + + | 02/22/ | Clinical | [facility] | | Lab Draw | | 2016 | Support | Hematologic | | (Trifusion); | | | Staff | [facility] at [facility] | | Dressing change | | | | [address] | | (Trifusion); | | | | Wally Burger Mailcode: | | Follow-up visit | | | | [id number] | | (quincy cummins NP); | | | | [place], | | Chemotherapy | | | | [place] [address] | | (vidaza) | | | | [phone] | | | +--------+ + + + [...] + + documented as of this encounter Progress Samantha Marcum, ZAFAR - 02/23/2016 10:51 AM PDT Chemotherapy Nurse Note Physician: Dr. Yari Garcia Allergies: Khurram is allergic to chlorhexidine towelette. Narrative: Khurram Diamond Leticia is a 25 y.o. male with Hx of primary refractory AML, He is currently day +180 s/p transplant, day 3, c5 of azacitidine and returns to clinic to y for scheduled follow-up with Quincy cummins, ARMEN Gerber and possible electrolyte replacement and/or blood transfusion. Nursing Assessment: Patient arrived to clinic with at side. He states he feels great and recently went on a 5K run/walk foundraiser. He has some red/pink splotches on bilateral arms and to upper a bdomen: total of about 5 dime sized, pink splotches, he will meet with Quincy Cummins NP to y to discuss this. Fever: no; Diarrhea: no; SOB / Cough: no; Nausea / Vomiting: no; Anemia / Fatigue: no; Constipation: no; Edema: no; S/S Bleeding: no; Mucositis: no; Urinary: no; Ne uropathy: no; Rash: yes - see above Vascular Access: Trifusion intact to left anterior chest wall without erythema or induration. Dressing petra lilly, skin intact without s/s exit site or tunnel infection. Using a Central Line Dressing C hange kit, site cleansed with Chloraprep. Skin prep applied prior to dressing application. Biopatch applied with Tegaderm dressing and small biopatch to small skin tear to upper left area. Positive pressure valves changed to each port. All lumens pulse flushed with 10 mL NS. Patient tolerated procedure without difficulty. VAD Lab Draw: Trifusion accessed per protocol. Good blood return noted. Appropriate waste discarded. L abs drawn and sent. Labs: Lab Results Component Value Date WBC 12.8* 02/23/2016 HB 11.9* 02/23/2016 HCT 34.6* 02/23/2016 PLT 175 02/23/2016 BUN 13 02/21/2016 CR 1.1 02/21/2016 For Treatment Done in Clinic Today: see MAR Treatment Provided: Labs results reviewed and met protocol parameters. Pre-medications of 8 mg po zofran given as ordered. Chemotherapy was checked by 2 RNs. 70 mg IV vidaza was infused per chemotherapy protocol a nd completed without adverse event. Positive blood return noted pre and post infusion. For infusion details, see MAR. Trifusion pulse flushed with 20 mL NS and 5 mL of 10 units/mL Heparin to all 3 lumens. Line flushed per protocol, see Flowsheet for details. Patient was reminded to call clinic w ith temp > 100.4, chills, s/s of bleeding or uncontrolled N/V/D/C. Patient verbalizes unders tanding. All questions answered. Patient was instructed to check out at the manager front prior to leaving the clinic. Patient d/c d ambulatory with in stable condition. Next Appoi ntment in [facility] is on 02/24/16 at 3:30 pm with [facility]. Samantha Swartz, RN documented in this encounter Plan of Treatment +--------+---------+ + [...] 2019 | Visit | Malignancy | [address] [facility] | | | | | | [address] | | | | | | [place], [place] | | | | | | [address] | | | | | | [phone] | | | | | | | | +--------+---------+ + + + documented as of this encounter Procedures + +--------+ + + + | Procedure Name | Priori | Date/Time | Associated Diagnosis | Comments | | | ty | | | | + +--------+ + + + | BMP + MAG, POC [facility] | Routin | 02/23/2016 | S/P allogeneic | Results for this | | | e | 10:52 AM | bone marrow | procedure are in the | | | | PDT | transplant (HCC) | results section. 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[facility])- primary | | | | | | induction failure | | + +--------+ + + + | CBC+DIFF,POC | Routin | 02/23/2016 | S/P allogeneic | Results for this | | | e | 10:42 AM | bone marrow | procedure are in the | | | | PDT | transplant ([facility]) | results section. 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[facility])- primary | | | | | | induction failure | | + +--------+ + + + | TREATMENT PARAMETERS | Routin | 02/23/2016 | 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 | 10:25 AM | leukemia (AML), M4 | | | | | PDT | ([facility])- primary | | | | | | induction failure | | + +--------+ + + + | TREATMENT PARAMETERS | Routin | 02/23/2016 | 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 | 10:25 AM | leukemia (AML), M4 | | | | | PDT | ([facility])- primary | | | | | | induction failure | | + +--------+ + + + | TREATMENT PARAMETERS | Routin | 02/23/2016 | 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 | 10:25 AM | leukemia (AML), M4 | | | | | PDT | ([facility])- primary | | | | | | induction failure | | + +--------+ + + + | TREATMENT PARAMETERS | Routin | 02/23/2016 | 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 | 10:25 AM | leukemia (AML), M4 | | | | | PDT | ([facility])- primary | | | | | | induction failure | | + +--------+ + + + | TREATMENT PARAMETERS | Routin | 02/23/2016 | 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 | 10:25 AM | leukemia (AML), M4 | | | | | PDT | ([facility])- primary | | | | | | induction failure | | + +--------+ + + + | NURSING | Routin | 02/23/2016 | Acute myeloid | | | COMMUNICATION #3 - | e | 10:25 AM | leukemia (AML), M4 | | | [facility] | | PDT | ([facility])- primary | | | | | | induction failure | | + +--------+ + + + | NURSING | Routin | 02/23/2016 | Acute myeloid | | | COMMUNICATION #2 - | e | 10:25 AM | leukemia (AML), M4 | | | [facility] | | PDT | (HCC)- primary | | | | | | induction failure | | + +--------+ + + + | NURSING | Routin | 02/23/2016 | Acute myeloid | | | COMMUNICATION #1 - | e | 10:25 AM | leukemia (AML), M4 | | | [facility] | | PDT | (HCC)- primary | | | | | | induction failure | | + +--------+ + + + | TREATMENT PARAMETERS | Routin | 02/23/2016 | Acute myeloid | | | #1 - [place] | e | 10:25 AM | leukemia (AML), 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 | | | | | | induction failure | | + +--------+ + + + | TREATMENT PARAMETERS | Routin | 02/23/2016 | Acute myeloid | | | #1 - [facility] | e | 10:25 AM | leukemia (AML), 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 | | | | | | induction failure | | + +--------+ + + + | LIVER SET | Urgent | 02/23/2016 | S/P allogeneic | Results for this | | (AST,ALT,BILI | | 10:25 AM | bone marrow | procedure are in the | | TOTAL,BILI | | PDT | transplant (HCC) | results section. | | DIRECT,ALK | | | Acute myeloid | | | PHOS,ALB,PROT TOTAL) | | | leukemia (AML), 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 | | | | | | induction failure | | + +--------+ + + + documented in this encounter Results BMP + MAG, POC [facility] (02/23/2016 10:52 AM PDT) + +---------+ + + + | Component | Value | Ref Range | Performed | Pathologist | | | | | At | Signature | + +---------+ + + + | SODIUM, POC | 139 | 134 - 143 | [facility] - | | | | | mmol/L | [facility] | | | | | | [facility] | | | | | | OF CARE | | | | | | TESTS | | + +---------+ + + + | POTASSIUM, | 4.1 | 3.4 - 5.0 | [facility] - | | | POC | | mmol/L | [facility] | | | | | | [facility] | | | | | | OF CARE | | | | | | TESTS | | + +---------+ + + + | TOTAL CO2, | 24 | 22 - 29 mmol/L | [facility] - | | | POC | | | [facility] | | | | | | [facility] | | | | | | OF CARE | | | | | | TESTS | | + +---------+ + + + | CHLORIDE, | 104 | 97 - 108 mmol/L | [facility] - | | | POC | | | [facility] | | | | | | [facility] | | | | | | OF CARE | | | | | | TESTS | | + +---------+ + + + | GLUCOSE, | 133 (H) | 60 - 99 mg/dL | [facility] - | | | POC | | | [facility] | | | | | | [facility] | | | | | | OF CARE | | | | | | TESTS | | + +---------+ + + + | CALCIUM | 9.6 | 8.6 - 10.2 | [facility] - | | | TOTAL, POC | | mg/dL | [facility] | | | | | | [facility] | | | | | | OF CARE | | | | | | TESTS | | + +---------+ + + + | BUN, POC | 13 | 6 - 20 mg/dL | [facility] - | | | | | | [facility] | | | | | | [facility] | | | | | | OF CARE | | | | | | TESTS | | + +---------+ + + + | CREATININE, | 0.7 | 0.7 - 1.3 mg/dL | [facility] - | | | POC | | | [facility] | | | | | | [facility] | | | | | | OF CARE | | | | | | TESTS | | + +---------+ + + + | LDH, POC | 339 (H) | 0 - 206 U/L | [facility] - | | | | | | [facility] | | | | | | [facility] | | | | | | OF CARE | | | | | | TESTS | | + +---------+ + + + | MAGNESIUM, | 2.0 | 1.8 - 2.5 mg/dL | [facility] - | | | POC | | | [facility] | | | | | | [facility] | | [...] + | [facility] | [address] | [place], [place] | | | [facility] OF CARE | [address] | [address] | | | TESTS | | | | + + + + + CBC+DIFF,POC (02/23/2016 10:42 AM PDT) + + + + + + | Component | Value | Ref Range | Performed | Pathologist | | | | | At | Signature | + + + + + + | WBC POC | 12.8 (H) | 4.4 - 11.0 | [facility] - | | | | | 10*3/uL | [facility] | | | | | | [facility] | | | | | | OF CARE | | | | | | TESTS | | + + + + + + | RBC POC | 3.26 (L) | 4.50 - 6.00 | [facility] - | | | | | 10*6/uL | [facility] | | | | | | [facility] | | | | | | OF CARE | | | | | | TESTS | | + + + + + + | HGB POC | 11.9 (L) | 13.5 - 17.5 | [facility] - | | | | | g/dL | [facility] | | | | | | [facility] | | | | | | OF CARE | | | | | | TESTS | | + + + + + + | HCT POC | 34.6 (L) | 41.0 - 53.0 % | [facility] - | | | | | | [facility] | | | | | | [facility] | | | | | | OF CARE | | | | | | TESTS | | + + + + + + | MCV POC | 106.1 (H) | 80.0 - 96.0 fL | [facility] - | | | | | | [facility] | | | | | | [facility], POINT | | | | | | OF CARE | | | | | | TESTS | | + + + + + + | MCH POC | 36.5 (H) | 28.5 - 32.3 pg | [facility] - | | | | | | [facility] | | | | | | [facility] POINT | | | | | | OF CARE | | | | | | TESTS | | + + + + + + | MCHC POC | 34.4 | 33.0 - 35.5 | [facility] - | | | | | g/dL | [facility] | | | | | | [facility] | | | | | | OF CARE | | | | | | TESTS | | + + + + + + | RDW SD, POC | 52.3 (H) | 35.1 - 46.3 fL | [facility] - | | | | | | [facility] | | | | | | [facility] | | | | | | OF CARE | | | | | | TESTS | | + + + + + + | PLT POC | 175 | 150 - 400 | [facility] - | | | | | 10*3/uL | [facility] | | | | | | [facility] | | | | | | OF CARE | | | | | | TESTS | | + + + + + + | MPV POC | 8.3 (L) | 9.7 - 12.3 fL | [facility] - | | | | | | [facility] | | | | | | [facility] | | | | | | OF CARE | | | | | | TESTS | | + + + + + + | NEUTROPHIL% | 75.7 (H) | 50.0 - 70.0 % | [facility] - | | | POC | | | [facility] | | | | | | [facility] | | | | | | OF CARE | | | | | | TESTS | | + + + + + + | LYMPH% POC | 15.1 (L) | 18 - 42 % | [facility] - | | | | | | [facility] | | | | | | [facility] POINT | | | | | | OF CARE | | | | | | TESTS | | + + + + + + | MONO %, POC | 7.2 | 3.5 - 9.0 % | [facility] - | | | | | | [facility] | | | | | | [facility]INT | | | | | | OF CARE | | | | | | TESTS | | + + + + + + | EOS %, POC | 1.5 | 1.0 - 3.0 % | [facility] - | | | | | | [facility] | | | | | | [facility]INT | | | | | | OF CARE | | | | | | TESTS | | + + + + + + | BASO %, POC | 0.5 | 0.0 - 2.0 % | [facility] - | | | | | | [facility] | | | | | | [facility] POINT | | | | | | OF CARE | | | | | | TESTS | | + + + + + + | NEUTROPHIL# | 9.7 (H) | 1.8 - 7.7 | [facility] - | | | POC | | 10*3/uL | [facility] | | | | | | [facility] | | | | | | OF CARE | | | | | | TESTS | | + + + + + + | LYMPH# POC | 1.9 | 1.0 - 4.8 | [facility] - | | | | | 10*3/uL | [facility] | | | | | | [facility] | | | | | | OF CARE | | | | | | TESTS | | + + + + + + | MONO #, POC | 0.9 (H) | 0.1 - 0.9 | [facility] - | | | | | 10*3/uL | [facility] | | | | | | [facility] | | | | | | OF CARE | | | | | | TESTS | | + + + + + + | EOS #, POC | 0.2 | 0.0 - 0.5 | [facility] - | | | | | 10*3/uL | [facility] | | | | | | [facility] | | | | | | OF CARE | | | | | | TESTS | | + + + + + + | BASO #, POC | 0.1 | 0.0 - 0.1 | [facility] - | | | | | 10*3/uL | [facility] | | | | | | [facility] | | | | | | OF CARE | | | | | | TESTS | | + + + + + + | CBC | Imm Gran. Lft Shift. | | [facility] - | | | COMMENT, | | | [facility] | | | POC | | | [facility] | | | | | | OF CARE | | | | | | TESTS | | + + + + + + + + | Specimen | + + | Blood - Blood | + + + + + + + | Performing | Address | City/State/Zipcode | Phone Number | | Organization | | | | + + + + + | [facility] | [address] | [place], [place] | | | [facility] | [facility] | [address] | | | TESTS | | | | + + + + + LIVER SET (AST,ALT,BILI TOTAL,BILI DIRECT,ALK PHOS,ALB,PROT TOTAL) (02/23/2016 10:25 AM PDT ) + +---------+ + + + | Component | Value | Ref Range | Performed | Pathologist | | | | | At | Signature | + +---------+ + + + | ALBUMIN, | 3.6 | 3.5 - 4.7 g/dL | [facility] [...] + + + | ALK PHOS | 131 (H) | 53 - 128 U/L | [facility] | | | | | | LABORATORY | | | | | | SERVICES, | | | | | | CORE | | + +---------+ + + + | AST(SGOT) | 77 (H) | <=41 U/L | [facility] | | | | | | LABORATORY | | | | | | SERVICES, | | | | | | CORE | | + +---------+ + + + | ALT (SGPT) | 205 (H) | <=60 U/L | [facility] | | | | | | LABORATORY | | | | | | SERVICES, | | | | | | CORE | | + +---------+ + + + | TOTAL | 6.8 | 6.4 - 8.2 g/dL | [facility] | | | PROTEIN, | | | LABORATORY | | | PLASMA | | | SERVICES, | | | (LAB) | | | CORE | | + +---------+ + + + | AST CMNT | Sl Hemo | | [facility] | | | | | | LABORATORY | | | | | | SERVICES, | | | | | | CORE | | + +---------+ + + + + + | Specimen | + + | Blood - Blood | | (substance) | + + + + + | Narrative | Performed At | + + + | Sample hemolyzed. Results for K, Total Bili, Direct Bili, AST, | [facility] | | LDH, or HDL may be inaccurate. Refer to comment under test result. | LABORATORY | | | SERVICES, CORE | + + + + + + + + | Performing | Address | City/State/Zipcode | Phone Number | | Organization | | | | + + + + + | [facility] | [address] | [place] [address] | | | SERVICES, [facility] | [address] | | | + + + + + documented in this encounter Visit Diagnoses + + | Diagnosis | + + | Acute myeloid leukemia (AML), M4 (HCC)- primary induction failure - Primary | + + | 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HCC) Bone marrow replaced by transplant | + + documented in this encounter Administered Medications + +---------+ +-------+-------+ + | Medication Order | MAR | Action | Dose | Rate | Site | | | Action | Date | | | | + +---------+ +-------+-------+ + | azaCITIDine (VIDAZA) 70 mg in | New Bag | 02/23/20 | 70 mg | 214 | Central | | NaCl 0.9 % IV 70 mg (rounded | | 16 11:25 | | mL/hr | Line | | from 67.84 mg = 32 mg/m2 | | AM PDT | | | | | 2.12 m2 Treatment plan recorded | | | | | | | BSA), intravenous, Administer | | | | | | | over 30 Minutes, ONCE, 1 dose, | | | | | | | 02/23/16 at 1100, HIGH RISK | | | | | | | MEDICATION-CHEMOTHERAPY | | | | | | | Administration must be completed | | | | | | | within 1 hour of preparation., | | | | | | + +---------+ +-------+-------+ + +---+---+ | | | +---+---+ + +-------+ + +---+---+ | heparin 10 unit/mL IV flush | Given | 02/23/20 | 50 Units | | | | syringe 50 Units 50 Units, | | 16 12:00 | | | | | Intracatheter, NEEDED, | | PM PDT | | | | | Starting 02/23/16 at 1231, | | | | | | | Until 02/23/16 at 1832, line | | | | | | | patency | | | | | | + +-------+ + +---+---+ +---+---+ | | | +---+---+ + +-------+ + +---+---+ | heparin 10 unit/mL IV flush | Given | 02/23/20 | 50 Units | | | | syringe 50 Units 50 Units, | | 16 12:00 | | | | | Intracatheter, NEEDED, | | PM PDT | | | | | Starting 02/23/16 at 1231, | | | | | | | Until Sun02/23/16 at 1832, line | | | | | | | patency | | | | | | + +-------+ + +---+---+ +---+---+ | | | +---+---+ + +-------+ + +---+---+ | heparin 10 unit/mL IV flush | Given | 02/23/20 | 50 Units | | | | syringe 50 Units 50 Units, | | 16 12:00 | | | | | Intracatheter, NEEDED, | | PM PDT | | | | | Starting Sun02/23/16 at 1231, | | | | | | | Until Sun02/23/16 at 1832, line | | | | | | | patency | | | | | | + +-------+ + +---+---+ +---+---+ | | | +---+---+ + +-------+ +------+---+---+ | ondansetron (ZOFRAN) tablet 8 | Given | 02/23/20 | 8 mg | | | | mg 8 mg, oral, ONCE, 1 dose, Sun | | 16 10:55 | | | | | 02/23/16 at 1100 | | AM PDT | | | | + +-------+ +------+---+---+ +---+---+ | | | +---+---+ documented in this encounter"
--- OUTSIDE RECORDS SUMMARY | ~2019-05-17 | XMS | Encounter Summary ---
Demographics + + + | Address | [address] | | | [place] [address] | + + + | Home Phone | | + + + | Preferred Language | Unknown | + + + | Marital Status | | + + + | Caodaism Affiliation | SPI | + + + | Race | White | + + + | Ethnic Group | Not or | + + + Author + + + | Author | [facility] | + + + | Organization | [facility] | + + + | Address | Unknown | + + + | Phone | Unavailable | + + + Support + + +---------+ + | Name | Relationship | Address | Phone | + + +---------+ + | Gabriel Kelly | ECON | Unknown | | + + +---------+ + Care Team Providers + +------+ + | Care Senior C Web Developer Name | Role | Phone | + +------+ + | No Pcp Per Patient | PCP | Unavailable | + +------+ + Reason for Visit + + + | Reason | Comments | + + + | Transplant follow-up | | + + + Office Visit - E/M Services (Routine) +--------+---------+ + + + + | Status | Reason | Specialty | Diagnoses / | Referred By | Referred To | | | | | Procedures | Contact | Contact | +--------+---------+ + + + + | Closed | Other | Hematology | Diagnoses | Jose | [facility] | | | | Malignancy | 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, | [address] | [facility] | | | | | not having | [facility] | Mailcode: | | | | | achieved | [place], [place] | [id number] | | | | | remission | [address] | [place] | | | | | | Phone: | [facility] | | | | | Procedures | [phone] | [place], [place] | | | | | Post BMT | Fax: | [phone] | | | | | Auth to | [phone] | Phone: | | | | | included | | [phone] | | | | | facility, | | Fax: | | | | | diagnostics, | | [phone] | | | | | office | | | | | | | visits and | | | | | | | surgery | | | +--------+---------+ + + + + Encounter Details +--------+---------+ + + + | Date | Type | Department | Care Team | Description | +--------+---------+ + + + | 04/19/ | Office | Center for | Aspen Cummins FNP | S/P allogeneic bone | | 2017 | Visit | Hematologic | [address] [facility] | marrow transplant | | | | Malignancies at | [facility] | (HCC) (Primary Dx) | | | | [facility] | [place], [place] | | | | | [address] | [address] | | | | | [place] [place] Mailcode: | [phone] | | | | | [id number] [place] | | | | | | [facility] [place], | | | | | | [place] [address] | | | | | | [phone] | | | +--------+---------+ + + + [...] + + + | Blood Pressure | 140/84 | 04/19/2017 11:01 AM | | | | | PDT | | + + + + + | Pulse | 80 | 04/19/2017 11:01 AM | | | | | PDT | | + + + + + | Temperature | 36.8 C (98.2 F) | 04/19/2017 11:01 AM | | | | | PDT | | + + + + + | Respiratory Rate | 16 | 04/19/2017 11:01 AM | | | | | PDT | | + + + + + | Oxygen Saturation | 100% | 04/19/2017 11:01 AM | | | | | PDT | | + + + + + | Inhaled Oxygen | - | - | | | Concentration | | | | + + + + + | Weight | 74.7 kg (164 lb 10.9 | 04/19/2017 11:01 AM | | | | oz) | PDT | | + + + + + | Height | - | - | | + + + + + | Body Mass Index | 20.58 | 04/02/2017 1:46 PM | | | | | PDT | | + + + + + documented in this encounter Patient Instructions Patient Instructions Aspen Cummins FNP - 04/19/2017 10:45 AM PDT1. Change multivitamin to one without iron 2. Calcium intake should be 1970-3777 mg daily (not to exceed 2000 mg daily). Calcium sup plements should be taken in divided doses (eg, in the morning and evening), because single d oses above 500 mg are not absorbed as well as smaller doses. Calcium carbonate is best abso rbed with food while calcium citrate is not food dependent. 3. I've sent a refill of your albuterol inhaler to your local pharmacy 4. Once your upper respiratory symptoms have resolved, get your flu shot. Encourage your family and close contacts to get their vaccine too. 5. We'll postpone your next vaccines until your next visit 6. Return to clinic to follow up with either Yari Garcia MD or me in 1 month. We'll sched ule pulmonary function tests that day too.Electronically signed by ORLY Yanes at 04/08 11:46 AM PDT documented in this encounter Progress Notes Aspen Cummins FNP - 04/19/2017 10:45 AM PDT 04/19/2017 [facility]M MD: Yari Garcia MD Primary Oncologist: Yari Garcia MD Diagnosis: AMML, primary refractory Transplant Date: 08/27/15 Donor: MMURD (DPB1 permissive antigen mismatch, male, [id number]) Identifying Data: Khurram Kelly is a 26 y.o. CM with a PMH of pericarditis who was din his [facility] until 03/13/15 (the night of his wedding) at which time he noted bilateral a nkle pain and swelling. This persisted and worsened intermittently, progressing until he cou ldn't bear weight. He presented to the ED, was diagnosed with cellulitis of the RLE and pres cribed antibiotics. He was noted to be pancytopenic with subsequent white blood cell differe ntial identifying a predominance of early appearing monocytes. On 04/18/15 he noted pleuritic anterior chest pains, low-grade fevers occasionally up to 10 1 with swelling and erythema over his L ankle. He was evaluated at [facility] ED on 06/[address] angiogram negative [...] acute myelomonocytic leukemia. He was referred to [facility] for further evaluation and man agement of his newly dx'd AML. Pt was admitted to [facility] on 05/26/15. Peripheral blood was sent for [...] CD34, variable CD56, variable CD117, and dim [id number] mickey; promonocyte immunophenotype (70% by flow): CD11b, [...] with HD steroids then flared durin g taper; and AVN requiring L total hip arthroplasty. He is currently 1 year, 8 months s/p transplant, s/p 6 cyclesof azacitidine and returns t o clinic today for scheduled follow-up. Interim History: Khurram was most recently evaluated in [facility] by Yari Garcia MD on 03/15/17. He was dx'd with bronchitis ~3 weeks ago, treate d with azithromycin. Symptoms have been slow to resolve, continues with intermittent MARINE OILER cou gh, chest congestion. Has been using an albuterol INH and nebulizer at home, ran out of both . Afebrile. No SOB/ROJAS. Notes decreased appetite and weight loss with onset of URI. Startin g to regain his appetite, weight uptrending. Was seen in ortho on 04/02/17 due to severe R hip pain and inability to weight bear. Had be en using a cane until about 3 days ago. Now able to weight bear without pain. Feels he's lo st strength and stamina due to inability to exercise. Intermittent dry eye, using OTC PFAT. No c/o oral irritation, difficulty swallowing, N/V/D or skin changes. Review of Systems Constitutional: Negative for chills, fever and malaise/fatigue. HENT: Negative for headaches, congestion and sore throat. Respiratory: Positive for cough and wheezing. Negative for sputum production and shortness of breath. Cardiovascular: Negative for chest pain and leg swelling. Gastrointestinal: Negative for abdominal pain, diarrhea, nausea (initially with URI, now re solved) and vomiting. Genitourinary: Negative for dysuria. Musculoskeletal: Negative for falls, joint pain (no further c/o hip pain) and myalgias. Skin: Negative for itching and rash. Neurological: Positive for weakness (overall improved). Negative for dizziness, tingling an d tremors. All other systems reviewed and are negative. Current Outpatient Prescriptions Medication Sig acyclovir 800 mg oral tablet Take 1 tablet by mouth two times daily. albuterol 90 mcg/actuation inhalation HFA aerosol inhaler Inhale 1-2 puffs by mouth ne ry four hours as needed. ALPRAZOLAM 0.5 mg oral tablet TAKE TWO TABLETS BY MOUTH THREE TIMES A DAY NEEDED FOR ANXIETY mycophenolate delayed release 360 mg oral tablet,delayed release (DR/EC) Take 2 tablets by mouth two times daily. Indications: gvhd omeprazole 20 mg oral capsule,delayed release(DR/EC) Take 1 capsule by mouth once daily as needed. Indications: Prevention of Stress Ulcer oxyCODONE (immediate release) 5 mg oral tablet Take 1 tablet by mouth every six hours a s needed. predniSONE 10 mg oral tablet Take 1 tablet (10 mg) by mouth daily tacrolimus 0.5 mg oral capsule Take 1 mg by mouth every morning and 0.5 mg by mouth ne ry evening. Indications: GVHD tacrolimus 1 mg oral capsule Take 1 mg by mouth every morning and 0.5 mg by mouth every evening. Indications: GVHD trimethoprim-sulfamethoxazole 160-800 mg oral tablet Take 1 tablet by mouth twice daily (every Sunday and ). ursodiol 300 mg oral capsule Take 1 capsule by mouth two times daily. No current facility-administered medications for this visit. Facility-Administered Medications Ordered in Other Visits Medication Dose Route Frequency Provider Last Rate Last Dose haemophilus b polysac-tetanus toxoid (ActHIB) injection 0.5 mL 0.5 mL intramuscular ON CE Aspen Cummins, TRAFFIC CONTROL FLAGGER hepatitis A-hepatitis B vaccine (TWINRIX) injection 1 mL 1 mL intramuscular ONCE , TRAFFIC CONTROL FLAGGER human papillomavirus vaccine (9-valent) (GARDASIL 9) injection 0.5 mL 0.5 mL intramusc ular ONCE , TRAFFIC CONTROL FLAGGER poliovirus vaccine (inactivated) (IPOL) injection 0.5 mL 0.5 mL subcutaneous ONCE a n , TRAFFIC CONTROL FLAGGER tetanus-diphtheria toxoids (adult) (TENIVAC,DECAVAC,Td) injection 0.5 mL 0.5 mL intram uscular ONCE , TRAFFIC CONTROL FLAGGER No Known Allergies Filed Vitals: 04/19/2017 11:01 AM Weight: 74.7 kg (164 lb 10.9 oz) BP: 140/84 Pulse: 80 Temp: 36.8 C (98.2 F) TempSrc: Oral Resp: 16 SpO2: 100% PainSc: 02 - Mild PainLoc: Hip (Right) BMI: 20.58 kg/(m^2) Physical Exam Constitutional: Thin CM in NAD HENT: Head: Normocephalic and atraumatic. Mouth/Throat: Oropharynx [...] warm and dry. No rash noted. Psychiatric: Mood and affect normal. Vitals reviewed. Lab Results Component Value Date WBC 13.43 04/19/2017 HB 14.6 04/19/2017 HCT 43.4 04/19/2017 PLT 295 04/19/2017 MCV 93.9 04/19/2017 RDW 41.9 04/19/2017 Lab Results Component Value Date BICARB 27 04/19/2017 TBILI 0.9 04/19/2017 CA 9.7 04/19/2017 CL 105 04/19/2017 CR 1.0 04/19/2017 GLU 118 (H) 04/19/2017 AP 93 04/19/2017 TP 7.7 04/19/2017 BUN 14 04/19/2017 ALB 4.1 04/19/2017 AST 38 04/19/2017 NA 141 04/19/2017 K 4.3 04/19/2017 ALT 47 04/19/2017 Assessment/Plan: 1. Hematology: Khurram Kelly is currently1 year, 8 monthss/p tBuCy-conditi oned unrelated donor [facility] transplant for primary refractory AML, s/p 6 cycles of azacitidine for post-transplant relapse. His most recent marrow studies completed 08/31/16 showed a norm ocellular marrow (30%) with trilineage hematopoiesis, marrow eosinophilia (~15%) and <2% m yeloid blasts. Karyotype 46,XY[20]. VNTR showed no detectable host cells. 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 CBC shows mild nito kocytosis, likely secondary to resolving URI. Counts o/w WNL. He has no evidence of diseas e by peripheral smear. --> continue CBC q4 weeks and prn --> no additional marrow studies indicated providing peripheral counts remain stable 2. 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 He initially responded but flared during taper. He also developed low-level nausea and abd discomfort concerning for GvHD, emp irically treated with oral non-absorbables with resolution. - He had tapered prednisone to 10 mg po daily when he developed a rash for which he was see n in the ED in [place] in late 01/21. Prednisone was increased back to 20 mg po daily. Skin bx 02/10/16 showed vaculolar interface mixed dermatitis with eosinophils. DDx included GvHD a nd drug hypersensitivity reaction. Rash resolved with increased dose prednisone. - He had tolerated a taper of steroids to 5 mg po every other day then developed a faint re current rash. Prednisone increased to 5 mg po daily on 05/15/16 with rapid resolution of his rash. - He tapered off budesonide, prednisone as of 07/13/16. - Chronic mild nausea, increased in late 07/25, with low level transaminitis suspicious for recurrent GvHD. Beclomethasone restarted 08/09/16 with initial resolution of N/V. - Presented on 09/25/16 with recurrent N/V,increasing rash. MMF ER started at 360 mg po BI D, therapeutic tacrolimus. N/V resolved, rash persists with new areas of scaling. MMF incr eased to 720 mg po BID on 10/02/16 - Due to increased N/V and progression of rash, prednisone 20 mg po daily started 10/09/16. E GD/flex sig 10/17/[address] c/o Candidal esophagitis and mild GvHD of the rectum. Treatm ent course of fluconazole with resolution of upper GI symptoms --> TODAY: LFTs WNL, asymptomatic aside from mild dry eye. Continue MMF ER, tacrolimus, pr ednisone 10 mg po daily --> no change in IST today due to ongoing, resolving URI symptoms --> PFTs next visit --> continue to f/u with ophthalmology per their recommendations --> d/c ursodiol --> continue to avoid ETOH, acetaminophen and nephrotoxins 3. Infectious Disease: Afebrile with resolving URI symptoms. He continues prophylactic ac yclovir and bactrim. Completed a 3-week course of fluconazole 400 mg po daily on 11/12/16 for findings of esophageal candidiasis His most recent immune reconstitution panel collected showed normal total T cells with relative decrease in CD4+ margarita cells, normal total NK cells, normal total B cells with relative decrease in non-switched memory B cells and mi nimal immune activation. CD4 count 420. Continues post-transplant vaccines -->continue acyclovir until off all IST --> d/c bactrim --> additional vaccines due today but held due to resolving URI; dose next visit --> encouraged pt to get his annual flu shot locally once URI symptoms resolved 4. Fluid, Electrolyte and Nutrition: Appetite decreased with recent URI, weight down 7#s in clinic today but states his weight had gone down further and is now uptrending. Oral inta ke improving, feels his po fluid intake is adequate. No c/o N/V/D. His electrolytes are re viewed and are within acceptable limits. --> continue a well balanced diet -->maintain adequate hydration 5. Musculoskeletal: Hx of intermittent L hip pain. MRI 07/25/16 showed bilateral femoral hea d osteonecrosis with subchondral fracture and collapse of weightbearing L femoral head with suspected early cartilage disease. Underwent a total L hip arthroplasty on 09/07/16, pain reso lved. Developed severe R hip pain. Evaluated by Dr. Jefefrs on 04/02/17; per pt report, thoug ht there may be a hairline fracture causing his pain. Required a cane for ambulation and un able to weight bear until a few days ago. Now asymptomatic. No longer requiring analgesics. --> continue to f/u with Dr. Jeffers per his recommendations 6. Psychosocial: Hx anxiety, well controlled with current xanax dosing. Back in [facility] n now, different set of life stressors but feels he's handling them well. His is now do sing his xanax, very slowly tapering down. He states this is the first month he's not exceed ed the daily prescribed dose --> cognitive behavioral therapy and peer support groups as able --> continue xanax 1 mg po TID; if pt decides he wants to taper off, recommended very slow taper by decreasing to a total of five 0.5 mg tabs/day for several weeks, then four, etc. 7. Follow up --> RTC to f/u with me, PFTs in 1 month, sooner prn ORLY Yanes [facility] AT [address] Mailcode: [id number] [address] documented in this enc ounter [...] 2018 | Visit | Malignancy | [address] | | | | | | [address] | | | | | | [place], [place] | | | | | | [address] | | | | | | [phone] | | | | | | | | +--------+---------+ + + + documented as of this encounter Results CMP, POC (BMP+LFT) (05/24/2017 11:07 AM PST) + +---------+ + + + [...] +---------+ + + + | POTASSIUM, | 4.4 | 3.4 - 5.0 | [facility] - | | | POC | | mmol/L | [facility] | | | | | | [facility] | | | | | | OF CARE | | | | | | TESTS | | + +---------+ + + + | TOTAL CO2, | 25 | 22 - 29 mmol/L | [facility] [...] +---------+ + + + | GLUCOSE, | 104 (H) | 70 - 99 mg/dL | [facility] - | | | POC | | | [facility] | | | | | | [facility] | | | | | | OF CARE | | | | | | TESTS | | + +---------+ + + + | CALCIUM | 9.5 | 8.6 - 10.2 | [facility] - | | | TOTAL, POC | | mg/dL | [facility] | | | | | | [facility] | | | | | | OF CARE | | | | | | TESTS | | + +---------+ + + + | BUN, POC | 9 | 6 - 20 mg/dL | [facility] - | | | | | | [facility] | | | | | | [facility] | | | | | | OF CARE | | | | | | TESTS | | + +---------+ + + + | CREATININE, | 0.8 | 0.7 - 1.3 mg/dL | [facility] - | | | POC | | | [facility] | | | | | | [facility] | | | | | | OF CARE | | | | | | TESTS | | + +---------+ + + + | ALK PHOS, | 67 | 41 - 99 U/L | [facility] - | | | CMP POC | | | [facility] | | | | | | [facility] | | | | | | OF CARE | | | | | | TESTS | | + +---------+ + + + | ALT, CMP | 42 | 0 - 60 U/L | [facility] - | | | POC | | | [facility] | | | | | | [facility] | | | | | | OF CARE | | | | | | TESTS | | + +---------+ + + + | AST, CMP | 47 (H) | 0 - 41 U/L | [facility] - | | | POC | | | [facility] | | | | | | [facility] | | | | | | OF CARE | | | | | | TESTS | | + +---------+ + + + | BILIRUBIN | 0.5 | 0.3 - 1.2 mg/dL | [facility] - | | | TOTAL, CMP | | | [facility] | | | POC | | | [facility] | | | | | | OF CARE | | | | | | TESTS | | + +---------+ + + + | ALBUMIN, | 3.6 | 3.5 - 4.7 g/dL | [facility] - | | | CMP POC | | | [facility] | | | | | | [facility] | | | | | | OF CARE | | | | | | TESTS | | + +---------+ + + + | PROTEIN | 6.7 | 6.1 - 7.9 g/dL | [facility] - | | | TOTAL, CMP | | | [facility] | | | POC | | | [facility] | | | | | | OF CARE | | | | | | TESTS | | + +---------+ + + + + + | Specimen | + + | Blood | + + + + + + + | Performing | Address | City/State/Zipcode | Phone Number | | Organization | | | | + + + + + | [facility] | [address] | [place], [place] | | | [facility] | [facility] | [address] | | | TESTS | | | | + + + + + CBC+DIFF,POC (05/24/2017 11:06 AM PST) + + + + + + | Component | Value | Ref Range | Performed | Pathologist | | | | | At | Signature | + + + + + + | WBC POC | 10.4 | 3.5 - 10.8 | [facility] | | | | | 10*3/uL | [place] | | | | | | [facility] | | | | | | OF CARE | | | | | | TESTS | | + + + + + + | RBC POC | 4.07 (L) | 4.50 - 6.00 | [facility] - | | | | | 10*6/uL | [facility] | | | | | | [facility], POINT | | | | | | OF CARE | | | | | | TESTS | | + + + + + + | HGB POC | 13.2 (L) | 13.5 - 17.5 | [facility] - | | | | | g/dL | [facility] | | | | | | [facility], POINT | | | | | | OF CARE | | | | | | TESTS | | + + + + + + | HCT POC | 38.9 (L) | 41.0 - 53.0 % | [facility] | | | | | | [facility] | | | | | | [facility], POINT | | | | | | OF CARE | | | | | | TESTS | | + + + + + + | MCV POC | 95.6 | 80.0 - 96.0 fL | [facility] | | | | | | [facility] | | | | | | [facility], POINT | | | | | | OF CARE | | | | | | TESTS | | + + + + + + | MCH POC | 32.4 (H) | 28.5 - 32.3 pg | [facility] - | | | | | | [facility] | | | | | | [facility] | | | | | | OF CARE | | | | | | TESTS | | + + + + + + | MCHC POC | 33.9 | 33.0 - 35.5 | [facility] - | | | | | g/dL | [facility] | | | | | | [facility] | | | | | | OF CARE | | | | | | TESTS | | + + + + + + | RDW SD, POC | 44.1 | 35.1 - 46.3 fL | [facility] | | | | | | [facility] | | | | | | [facility] | | | | | | OF CARE | | | | | | TESTS | | + + + + + + | PLT POC | 282 | 150 - 400 | [facility] - | | | | | 10*3/uL | [facility] | | | | | | [facility] | | | | | | OF CARE | | | | | | TESTS | | + + + + + + | MPV POC | 7.9 (L) | 9.7 - 12.3 fL | [facility] | | | | | | [place] | | | | | | [facility] | | | | | | OF CARE | | | | | | TESTS | | + + + + + + | NEUTROPHIL% | 79.7 (H) | 50.0 - 70.0 % | [facility] - | | | POC | | | [facility] | | | | | | [facility] | | | | | | OF CARE | | | | | | TESTS | | + + + + + + | LYMPH% POC | 13.7 (L) | 18 - 42 % | [facility] | | | | | | [place] | | | | | | [facility] | | | | | | OF CARE | | | | | | TESTS | | + + + + + + | MONO %, POC | 5.0 | 3.5 - 9.0 % | [facility] - | | | | | | [facility] | | | | | | [facility] | | | | | | OF CARE | | | | | | TESTS | | + + + + + + | EOS %, POC | 1.4 | 1.0 - 3.0 % | [facility] - | | | | | | [facility] | | | | | | [facility] | | | | | | OF CARE | | | | | | TESTS | | + + + + + + | BASO %, POC | 0.2 | 0.0 - 2.0 % | [facility] - | | | | | | [facility] | | | | | | [facility] | | | | | | OF CARE | | | | | | TESTS | | + + + + + + | NEUTROPHIL# | 8.3 (H) | 1.8 - 7.7 | [facility] - | | | POC | | 10*3/uL | [facility] | | | | | | [facility] | | | | | | OF CARE | | | | | | TESTS | | + + + + + + | LYMPH# POC | 1.4 | 1.0 - 4.8 | [facility] - | | | | | 10*3/uL | [facility] | | | | | | [facility] | | | | | | OF CARE | | | | | | TESTS | | + + + + + + | MONO #, POC | 0.5 | 0.1 - 0.9 | [facility] - [...] + + | BASO #, POC | 0.0 | 0.0 - 0.1 | [facility] - | | | | | 10*3/uL | [facility] | | | | | | [facility] [...] [facility] | [address] | [place], [place] | | | [facility] | [address] | [address] | | | TESTS | | | | + + + + + MAGNESIUM, PLASMA (05/24/2017 10:54 AM PST) + +-------+ + + + | Component | Value | Ref Range | Performed | Pathologist | | | | | At | Signature | + +-------+ + + + | MAGNESIUM,P | 2.2 | 1.6 - 2.6 mg/dL | [facility] | | | [facility] | | | LABORATORY | | | | | | SERVICES, | | | | | | CORE | | + +-------+ + + + + + | Specimen | + + | Blood - Blood | | (substance) | + + + + + | Narrative | Performed At | + + + | Reference range change effective 02/20/17. | [facility] | | | LABORATORY | | | SERVICES, CORE | + + + + + + + + | Performing | Address | City/State/Zipcode | Phone Number | | Organization | | | | + + + + + | [facility] | [address] | [place] [address] | | | SERVICES, CORE | [address] | | | + + + + + SPIROMETRY, PULM FUNCTION LAB (05/24/2017 9:26 AM PST) + + + + + + | Component | Value | Ref Range | Performed | Pathologist | | | | | At | Signature | + + + + + + | PULMONARY | Site: [facility] | | [facility] | | | INTERPRETAT | [facility], [address] | [address] | | [address] | | [address]NOST[address] | | | | [address],[place], [place], | | - | | | | [address]SV: [phone] | | PULMONARY | | | | Name: RAZA, | | FUNCTION | | | | KHURRAM Diait | | | | | | Date: 05/24/2017 | | | | | | Second ID: | | | | | | [id number]: | | | | | | Adarsh ChauAge: 26 | | | | | | : 1990 Sex: | | | | | | Male Race: | | | | | | CaucasianHeight: 188.00 | | | | | | Cms Weight: 78.10 | | | | | | Kgs BSA: | | | | | | 2.04Diagnosis: | | | | | | Z84.81Dyspnea: No | | | | | | Dyspnea Cough: | | | | | | Non-Productive Wheeze: | | | | | | RareTbco Prod: | | | | | | Cigarette Yrs Smk: 7.0 | | | | | | Pks/Day: 1.0 Yrs | | | | | | Quit: 2.0Post Test | | | | | | Comments: The results of | | | | | | this test meet the ATS | | | | | | standards | | | | | | foracceptability and | | | | | | repeatability. Height | | | | | | and weight done here. | | | | | | | | | | | | | | | | | | Pre-Bronch | | | | | | Post-Bronch | | | | | | | | | | | | Pred | | | | | | Actual %Pred Actual | | | | | | %ChngSPIROMETRYFVC (L) | | | | | | | | | | | | 6.22 | | | | | | 7.23 [id number] (L) | | | | | | | | | | | | 5.06 5.50 | | | | | | 349JUK1/FVC (%) | | | | | | | | | | | | 83 76 | | | | | | 91FEF 25% (L/sec) | | | | | | 8.42 | | | | | | 7.99 94FEF 50% | | | | | | (L/sec) | | | | | | 5.31 5.92 | | | | | | 111FEF 75% (L/sec) | | | | | | | | | | | | 2.22 2.13 | | | | | | 95FEF 25-75% (L/sec) | | | | | | 5.02 | | | | | | 4.74 94FEF Max | | | | | | (L/sec) | | | | | | 11.16 9.77 | | | | | | 87FIVC (L) | | | | | | | | | | | | 6.99FIF | | | | | | 50% (L/sec) | | | | | | 9.23 | | | | | | 8.63 93FIF Max | | | | | | (L/sec) | | | | | | | | | | | | 9.40LUNG VOLUMESSVC (L) | | | | | | | | | | | | 5.92 | | | | | | 7.28 122IC (L) | | | | | | | | | | | | 3.88 5.45 | | | | | | 140ERV (L) | | | | | | | | | | | | 2.04 1.83 | | | | | | 89FRC (pl) (L) | | | | | | | | | | | | 3.82 3.61 94RV | | | | | | (Pleth) (L) | | | | | | 1.78 | | | | | | 1.78 100TLC (Pleth) | | | | | | (L) | | | | | | 7.70 9.06 | | | | | | 117RV/TLC (Pleth) (%) | | | | | | | | | | | | 22 20 | | | | | | 89DIFFUSIONDLCOunc | | | | | | (ml/min/mmHg) | | | | | | 35.46 40.31 | | | | | | 113DLCOadj | | | | | | (ml/min/mmHg) | | | | | | 35.46 41.80 | | | | | | 117DL/VA | | | | | | (ml/min/mmHg/L) | | | | | | 4.61 4.81 | | | | | | 104VA (L) | | | | | | | | | | | | 7.70 8.70 | | | | | | [facility] | | | | | | RESISTANCEBLOOD GASESHgb | | | | | | (gm/dL) | | | | | | | | | | | | 13.4 Interpretation: | | | | | | INTERPRETATION:SPIROMETR | | | | | | Y:Spirometry is within | | | | | | normal limits for age, | | | | | | height and sex. There | | | | | | has been nochange | | | | | | outside the margin of | | | | | | testing error since last | | | | | | values obtained | | | | | | 09/01/16. LUNG | | | | | | VOLUMES:Lung volumes are | | | | | | within normal limits. | | | | | | DIFFUSING CAPACITY:The | | | | | | diffusing capacity is | | | | | | within normal limits. | | | | | | OVERALL:Stable, entirely | | | | | | normal pulmonary | | | | | | function.This | | | | | | interpretation has been | | | | | | electronically signed: | | | | | | Chase Lema | | | | | | 05/29/201709:44:39 PM | | | | + + + + + + | FVC PRE | 7.23 | 6.22 L | [facility] | | | | | | SPECIAL | | | | | | DIAGNOSTICS | | | | | | - | | | | | | PULMONARY | | | | | | FUNCTION | | + + + + + + | FVC PRE | 116 | % | [facility] | | | (%REF) | | | SPECIAL | | | | | | DIAGNOSTICS | | | | | | - | | | | | | PULMONARY | | | | | | FUNCTION | | + + + + + + | FEV1 PRE | 5.50 | 5.06 L | [facility] | | | | | | SPECIAL | | | | | | DIAGNOSTICS | | | | | | - | | | | | | PULMONARY | | | | | | FUNCTION | | + + + + + + | FEV1 PRE | 108 | % | [facility] | | | (%REF) | | | SPECIAL | | | | | | DIAGNOSTICS | | | | | | - | | | | | | PULMONARY | | | | | | FUNCTION | | + + + + + + | FEV1/FVC | 76 | 83 % | [facility] | | | PRE | | | SPECIAL | | | | | | DIAGNOSTICS | | | | | | - | | | | | | PULMONARY | | | | | | FUNCTION | | + + + + + + | FEV1/FVC | 91 | % | [facility] | | | PRE (%REF) | | | SPECIAL | | | | | | DIAGNOSTICS | | | | | | - | | | | | | PULMONARY | | | | | | FUNCTION | | + + + + + + | PEF PRE | 9.77 | 11.16 L/sec | [facility] | | | | | | SPECIAL | | | | | | DIAGNOSTICS | | | | | | - | | | | | | PULMONARY | | | | | | FUNCTION | | + + + + + + | PEF PRE | 87 | % | [facility] | | | (%REF) | | | SPECIAL | | | | | | DIAGNOSTICS | | | | | | - | | | | | | PULMONARY | | | | | | FUNCTION | | + + + + + + | MAV98-16% | 4.74 | 5.02 L/sec | [facility] | | | PRE | | | SPECIAL | | | | | | DIAGNOSTICS | | | | | | - | | | | | | PULMONARY | | | | | | FUNCTION | | + + + + + + | FYT23-96% | 94 | % | [facility] | | | PRE (%REF) | | | SPECIAL | | | | | | DIAGNOSTICS | | | | | | - | | | | | | PULMONARY | | | | | | FUNCTION | | + + + + + + | FIF50% PRE | 8.63 | 9.23 L/sec | [facility] | | | | | | SPECIAL | | | | | | DIAGNOSTICS | | | | | | - | | | | | | PULMONARY | | | | | | FUNCTION | | + + + + + + | FIF50% PRE | 93 | % | [facility] | | | (%REF) | | | SPECIAL | | | | | | DIAGNOSTICS | | | | | | - | | | | | | PULMONARY | | | | | | FUNCTION | | + + + + + + | VC PRE | 7.28 | 5.92 L | [facility] | | | | | | SPECIAL | | | | | | DIAGNOSTICS | | | | | | - | | | | | | PULMONARY | | | | | | FUNCTION | | + + + + + + | VC PRE | 122 | % | [facility] | | | (%REF) | | | SPECIAL | | | | | | DIAGNOSTICS | | | | | | - | | | | | | PULMONARY | | | | | | FUNCTION | | + + + + + + | IC PRE | 5.45 | 3.88 L | [facility] | | | | | | SPECIAL | | | | | | DIAGNOSTICS | | | | | | - | | | | | | PULMONARY | | | | | | FUNCTION | | + + + + + + | IC PRE | 140 | % | [facility] | | | (%REF) | | | SPECIAL | | | | | | DIAGNOSTICS | | | | | | - | | | | | | PULMONARY | | | | | | FUNCTION | | + + + + + + | ERV PRE | 1.83 | 2.04 L | [facility] | | | | | | SPECIAL | | | | | | DIAGNOSTICS | | | | | | - | | | | | | PULMONARY | | | | | | FUNCTION | | + + + + + + | ERV PRE | 89 | % | [facility] | | | (%REF) | | | SPECIAL | | | | | | DIAGNOSTICS | | | | | | - | | | | | | PULMONARY | | | | | | FUNCTION | | + + + + + + | FRC PL PRE | 3.61 | 3.82 L | [facility] | | | | | | SPECIAL | | | | | | DIAGNOSTICS | | | | | | - | | | | | | PULMONARY | | | | | | FUNCTION | | + + + + + + | FRC PL PRE | 94 | % | [facility] | | | (%REF) | | | SPECIAL | | | | | | DIAGNOSTICS | | | | | | - | | | | | | PULMONARY | | | | | | FUNCTION | | + + + + + + | RV PRE | 1.78 | 1.78 L | [facility] | | | | | | SPECIAL | | | | | | DIAGNOSTICS | | | | | | - | | | | | | PULMONARY | | | | | | FUNCTION | | + + + + + + | RV PRE | 100 | % | [facility] | | | (%REF) | | | SPECIAL | | | | | | DIAGNOSTICS | | | | | | - | | | | | | PULMONARY | | | | | | FUNCTION | | + + + + + + | TLC PRE | 9.06 | 7.70 L | [facility] | | | | | | SPECIAL | | | | | | DIAGNOSTICS | | | | | | - | | | | | | PULMONARY | | | | | | FUNCTION | | + + + + + + | TLC PRE | 117 | % | [facility] | | | (%REF) | | | SPECIAL | | | | | | DIAGNOSTICS | | | | | | - | | | | | | PULMONARY | | | | | | FUNCTION | | + + + + + + | RV/TLC PRE | 20 | 22 % | [facility] | | | | | | SPECIAL | | | | | | DIAGNOSTICS | | | | | | - | | | | | | PULMONARY | | | | | | FUNCTION | | + + + + + + | DLCO PRE | 40.31 | 35.46 | [facility] | | | | | ml/min/mmHg | SPECIAL | | | | | | DIAGNOSTICS | | | | | | - | | | | | | PULMONARY | | | | | | FUNCTION | | + + + + + + | DLCO PRE | 113 | % | [facility] | | | (%REF) | | | SPECIAL | | | | | | DIAGNOSTICS | | | | | | - | | | | | | PULMONARY | | | | | | FUNCTION | | + + + + + + | DLCO ADJ | 41.80 | 35.46 | [facility] | | | PRE | | ml/min/mmHg | SPECIAL | | | | | | DIAGNOSTICS | | | | | | - | | | | | | PULMONARY | | | | | | FUNCTION | | + + + + + + | DLCO ADJ | 117 | % | [facility] | | | PRE (%REF) | | | SPECIAL | | | | | | DIAGNOSTICS | | | | | | - | | | | | | PULMONARY | | | | | | FUNCTION | | + + + + + + | DLCO/VA ADJ | 4.81 | ml/min/mmHg/L | [facility] | | | PRE | | | SPECIAL | | | | | | DIAGNOSTICS | | | | | | - | | | | | | PULMONARY | | | | | | FUNCTION | | + + + + + + | DLCO/VA ADJ | 104 | % | [facility] | | | PRE (%REF) | | | SPECIAL | | | | | | DIAGNOSTICS | | | | | | - | | | | | | PULMONARY | | | | | | FUNCTION | | + + + + + [...] + + + + + | [facility] | [address] | [place], [place] | | | DIAGNOSTICS - | [address] | [address] | | | PULMONARY FUNCTION | | | | + + + + + CMP, POC (BMP+LFT) (04/19/2017 11:12 AM PDT) + +---------+ + + + | Component | Value | Ref Range | Performed | Pathologist | | | | | At | Signature | + +---------+ + + + | SODIUM, POC | 141 | 134 - 143 | [facility] - | | | | | mmol/L | [facility] | | | | | | [facility] | | | | | | OF CARE | | | | | | TESTS | | + +---------+ + + + | POTASSIUM, | 4.3 | 3.4 - 5.0 | [facility] - | | | POC | | mmol/L | [facility] | | | | | | [facility] | | | | | | OF CARE | | | | | | TESTS | | + +---------+ + + + | TOTAL CO2, | 27 | 22 - 29 mmol/L | [facility] [...] +---------+ + + + | GLUCOSE, | 118 (H) | 70 - 99 mg/dL | [facility] - | | | POC | | | [facility] | | | | | | [facility] | | | | | | OF CARE | | | | | | TESTS | | + +---------+ + + + | CALCIUM | 9.7 | 8.6 - 10.2 | [facility] - | | | TOTAL, POC | | mg/dL | [facility] | | | | | | [facility] | | | | | | OF CARE | | | | | | TESTS | | + +---------+ + + + | BUN, POC | 14 | 6 - 20 mg/dL | [facility] - | | | | | | [facility] | | | | | | [facility] | | | | | | OF CARE | | | | | | TESTS | | + +---------+ + + + | CREATININE, | 1.0 | 0.7 - 1.3 mg/dL | [facility] - | | | POC | | | [facility] | | | | | | [facility] | | | | | | OF CARE | | | | | | TESTS | | + +---------+ + + + | ALK PHOS, | 93 | 41 - 99 U/L | [facility] - | | | CMP POC | | | [facility] | | | | | | [facility] | | | | | | OF CARE | | | | | | TESTS | | + +---------+ + + + | ALT, CMP | 47 | 0 - 60 U/L | [facility] - | | | POC | | | [facility] | | | | | | [facility] | | | | | | OF CARE | | | | | | TESTS | | + +---------+ + + + | AST, CMP | 38 | 0 - 41 U/L | [facility] - | | | POC | | | [facility] | | | | | | [facility] | | | | | | OF CARE | | | | | | TESTS | | + +---------+ + + + | BILIRUBIN | 0.9 | 0.3 - 1.2 mg/dL | [facility] - | | | TOTAL, CMP | | | [facility] | | | POC | | | [facility], POINT | | | | | | OF CARE | | | | | | TESTS | | + +---------+ + + + | ALBUMIN, | 4.1 | 3.5 - 4.7 g/dL | [facility] - | | | CMP POC | | | [facility] | | | | | | [facility], POINT | | | | | | OF CARE | | | | | | TESTS | | + +---------+ + + + | PROTEIN | 7.7 | 6.1 - 7.9 g/dL | [facility] - | | | TOTAL, CMP | | | [facility] | | | POC | | | [facility] POINT | | | | | | OF CARE | | | | | | TESTS | | + +---------+ + + + + + | Specimen | + + | Blood | + + + + + + + | Performing | Address | City/State/Zipcode | Phone Number | | Organization | | | | + + + + + | [facility] | [address] | [place], [place] | | | [facility] CARE | [address] | [address] | | | TESTS | | | | + + + + + TACROLIMUS, WHOLE BLOOD (04/19/2017 10:26 AM PDT) + +---------+ + + + | Component | Value | Ref Range | Performed | Pathologist | | | | | At | Signature | + +---------+ + + + | TACROLIMUS | 2.2 (L) | 5.0 - 15.0 | [facility] | | | ([address]) | | ng/mL | LABORATORY | | | | | | SERVICES, | | | | | | SPECIAL IMM | | | | | | + [place] | | + +---------+ + + + + + | Specimen | + + | Blood - Blood | | (substance) | + + + + + | Narrative | Performed At | + + + | Test performed by immunoassay using [employer] i2000. . | [facility] | | Samples for analysis of Tacrolimus should be collected 30 minutes to | LABORATORY | | 1 hour prior to the next dose so that the measured concentration of | SERVICES, | | drug represents trough levels. Some other factors influencing | SPECIAL IMM + | | therapeutic range, dose administered, and result interpretation | COAG | | include time since transplantation, the organ transplanted, | | | co-administration of other immunosuppressants and interaction with | | | other drugs that may increase or decrease Tacrolimus concentrations. | | + + + + + + + + | Performing | Address | City/State/Zipcode | Phone Number | | Organization | | | | + + + + + | [facility] | [address] | [place] [address] | | | SERVICES, SPECIAL | [address] | | | | IMM + [place] | | | | + + + + + MAGNESIUM, PLASMA (04/19/2017 10:26 AM PDT) + +-------+ + + + | Component | Value | Ref Range | Performed | Pathologist | | | | | At | Signature | + +-------+ + + + | MAGNESIUM,P | 2.2 | 1.6 - 2.6 mg/dL | [facility] | | | [facility] | | | LABORATORY | | | | | | SERVICES, | | | | | | CORE | | + +-------+ + + + + + | Specimen | + + | Blood - Blood | | (substance) | + + + + + | Narrative | Performed At | + + + | Reference range change effective 02/20/17. 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
--- OUTSIDE RECORDS SUMMARY | ~2019-05-17 | XMS | Encounter Summary ---
Demographics + + + | Address | [address] | | | [place] [address] | + + + | Home Phone | | + + + | Preferred Language | Unknown | + + + | Marital Status | | + + + | Moravian Affiliation | SPI | + + + [...] Team Providers + +------+ + | Care Conduit Worker Name | Role | Phone | + +------+ + | Pending Pcp Addition | PCP | Unavailable | + +------+ + Reason for Visit + + + | Reason | Comments | + + + | Lab Draw | | + + + | Chemotherapy | Vidaza | + + + | Intravenous infusion | Pentam | + + + Chemotherapy (Routine) +--------+---------+ [...] | | myelomonocyt | [address] | [place] [address] | | | | | ic leukemia, | [facility] | [facility] | | | | | not having | [address] | [address] | | | | | achieved | [place], [place] | Mailcode: | | | | | remission | [address] | [id number] | | | | | Procedures | Phone: | [place] | | | | | [place] | [phone] | Pavilion | | | | | AZACITIDINE | Fax: | [place], [place] | | | | | INJECTION, 1 | [phone] | [address] | | | | | [place] | | Phone: | | | | | CHM,IV | | [phone] | | | | | INFSN,1 HR | | Fax: | | | | | [place] [facility],IV | | [phone] | | | | | INFSN,ADDL | | | | | | | HR Vidaza | | | +--------+---------+ + + + + Encounter Details +--------+ + + + + | Date | Type | Department | Care Team | Description | +--------+ + + + + | 02/24/ | Clinical | Center [facility] | | Lab Draw; | | 2015 | Support | Hematologic | | Chemotherapy | | | Staff | [facility]ign[facility] at [facility] | | (Vidaza); | | | | [address] | | Intravenous infusion | | | | Debi Burger Mailcode: | | (Pentam) | | | | [id number] [place] | | | | | | [place], | | | | | | [place] [address] | | | | | | [phone] | | | +--------+ + + + [...] + + + | Blood Pressure | 126/78 | 02/25/2016 7:54 AM | | | | | PDT | | + + + + + | Pulse | 86 | 02/25/2016 7:54 AM | | | | | PDT | | + + + + + | Temperature | 36.8 C (98.3 F) | 02/25/2016 7:54 AM | | | | | PDT | | + + + + + | Respiratory Rate | 16 | 02/25/2016 7:54 AM | | | | | PDT | | + + + + + | Oxygen Saturation | 98% | 02/25/2016 7:54 AM | | | | | PDT | | + + + + + | Inhaled Oxygen | - | - | | | Concentration | | | | + + + + + | Weight | 95.4 kg (210 lb 6.4 | 02/25/2016 7:54 AM | | | | oz) | PDT | | + + + + + | Height | - | - | | + + + + + | Body Mass Index | 26.72 | 01/25/2016 8:24 AM | | | | | PDT | | + + + + + documented in this encounter Progress Notes Cherri Winters RN - 02/25/2016 10:38 AM PDTPt denies fevers, chills, sob, n/v, diarrhea, a nd constipation. Pt states he is eating and drinking well. Chemotherapy was checked by 2 RNs. Viddaza was infused per chemotherapy protocol and compl eted without adverse event. Positive blood return noted pre and post infusion. For infusio n details, see MAR. Per orders, pt received Pentam IV. Pt tolerated well. For details, see SEP. Neostar pulse flushed with 20 mL NS and 5 mL of 10 units/mL Heparin. Patient ambulated wit h and discharged home. VSS. 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 | | + +--------+ + + + | NURSING | Routin | 02/25/2016 | S/P allogeneic | | | COMMUNICATION #4 - | e | 7:49 AM | bone marrow | | | [facility] | | PDT | transplant (HCC) | 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 | | + +--------+ + + + | GUIDELINES FOR | Routin | 02/25/2016 | S/P allogeneic | | | ORDERING #1 - [facility] | e | 7:49 AM | bone marrow | | | | | PDT | transplant (HCC) | 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 | | + +--------+ + + + | TREATMENT PARAMETERS | Routin | 02/25/2016 | 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 | 7:49 AM | leukemia (AML), 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 | | | | | | induction failure | | + +--------+ + + + | TREATMENT PARAMETERS | Routin | 02/25/2016 | 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 | 7:49 AM | leukemia (AML), 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 | | | | | | induction failure | | + +--------+ + + + | TREATMENT PARAMETERS | Routin | 02/25/2016 | 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 | 7:49 AM | leukemia (AML), 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 | | | | | | induction failure | | + +--------+ + + + | TREATMENT PARAMETERS | Routin | 02/25/2016 | 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 | 7:49 AM | leukemia (AML), M4 | | | | | PDT | ([facility])- primary | | | | | | induction failure | | + +--------+ + + + | TREATMENT PARAMETERS | Routin | 02/25/2016 | 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 | 7:49 AM | leukemia (AML), M4 | | | | | PDT | ([facility])- primary | | | | | | induction failure | | + +--------+ + + + | NURSING | Routin | 02/25/2016 | S/P allogeneic | | | COMMUNICATION #3 - | e | 7:49 AM | bone marrow | | | [facility] | | PDT | transplant ([facility]) | 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 | | + +--------+ + + + | NURSING | Routin | 02/25/2016 | S/P allogeneic | | | COMMUNICATION #3 - | e | 7:49 AM | bone marrow | | | [facility] | | PDT | transplant (HCC) | 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 | | + +--------+ + + + | NURSING | Routin | 02/25/2016 | S/P allogeneic | | | COMMUNICATION #2 - | e | 7:49 AM | bone marrow | | | [facility] | | PDT | transplant (HCC) | 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 | | + +--------+ + + + | NURSING | Routin | 02/25/2016 | S/P allogeneic | | | COMMUNICATION #2 - | e | 7:49 AM | bone marrow | | | [facility] | | PDT | transplant (HCC) | 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 | | + +--------+ + + + | NURSING | Routin | 02/25/2016 | S/P allogeneic | | | COMMUNICATION #1 - | e | 7:49 AM | bone marrow | | | [facility] | | PDT | transplant (HCC) | 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 | | + +--------+ + + + | NURSING | Routin | 02/25/2016 | S/P allogeneic | | | COMMUNICATION #1 - | e | 7:49 AM | bone marrow | | | [facility] | | PDT | transplant (HCC) | 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 | | + +--------+ + + + | TREATMENT PARAMETERS | Routin | 02/25/2016 | S/P allogeneic | | | #1 - [facility] | e | 7:49 AM | bone marrow | | | | | PDT | transplant (HCC) | 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 | | + +--------+ + + + | TREATMENT PARAMETERS | Routin | 02/25/2016 | S/P allogeneic | | | #1 - [facility] | e | 7:49 AM | bone marrow | | | | | PDT | transplant (HCC) | 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 | | + +--------+ + + + | TREATMENT PARAMETERS | Routin | 02/25/2016 | S/P allogeneic | | | #1 - [facility] | e | 7:49 AM | bone marrow | | | | | PDT | transplant (HCC) | | | | | | Acute myeloid [...] by | | transplant | + + | Acute myeloid leukemia (AML), M4 (HCC)- primary induction failure | + + documented in this encounter Administered Medications + +---------+ +-------+-------+------+ | Medication Order | MAR | Action | Dose | Rate | Site | | | Action | Date | | | | + +---------+ +-------+-------+------+ | azaCITIDine (VIDAZA) 70 mg in | New Bag | 02/25/20 | 70 mg | 214 | | | NaCl 0.9 % IV 70 mg (rounded | | 16 9:00 | | mL/hr | | | from 67.84 mg = 32 mg/m2 | | AM PDT | | | | | 2.12 m2 Treatment plan recorded | | | | | | | BSA), intravenous, Administer | | | | | | | over 30 Minutes, ONCE, 1 dose, | | | | | | | Sun02/25/16 at 0800, HIGH RISK | | | | | | | MEDICATION-CHEMOTHERAPY | | | | | | | Administration must be completed | | | | | | | within 1 hour of preparation., | | | | | | + +---------+ +-------+-------+------+ +---+---+ | | | +---+---+ + +-------+ +------+---+---+ | LORazepam (ATIVAN) tablet 1 mg | Given | 02/25/20 | 1 mg | | | | 1 mg, oral, NEEDED, 1 dose, | | 16 7:56 | | | | | Starting Sun02/25/16 at 0753, | | AM PDT | | | | | Until Sun02/25/16 at 0756, | | | | | | | nausea/vomiting | | | | | | + +-------+ +------+---+---+ +---+---+ | | | +---+---+ + +-------+ +------+---+---+ | ondansetron (ZOFRAN) tablet 8 | Given | 02/25/20 | 8 mg | | | | mg 8 mg, oral, ONCE, 1 dose, Fri | | 16 7:56 | | | | | 02/25/16 at 0800 | | AM PDT | | | | + +-------+ +------+---+---+ +---+---+ | | | +---+---+ + +---------+ +--------+---+---+ | pentamidine (PENTAM) IV 300 mg | New Bag | 02/25/20 | 300 mg | | | | 300 mg, intravenous, ONCE, 1 | | 16 9:10 | | | | | dose, 02/25/16 at 0800 | | AM PDT | | | | + +---------+ +--------+---+---+ +---+---+ | | | +---+---+ documented in this encounter"
--- OUTSIDE RECORDS SUMMARY | ~2019-05-17 | XMS | Encounter Summary ---
Demographics + + + | Address | [address] | | | [place] [address] | + + + | Home Phone | | + + + | Preferred Language | Unknown | + + + | Marital Status | | + + + | Scientologist Affiliation | SPI | + + + | Race | White | + + + | Ethnic Group | Not or | + + + Author + + + | Author | [facility] | + + + | Organization | [facility] | + + + | Address | Unknown | + + + | Phone | Unavailable | + + + Support + + +---------+ + | Name | Relationship | Address | Phone | + + +---------+ + | Gabriel Kelly | ECON | Unknown | | + + +---------+ + Care Team Providers + +------+ + | Care Color Receiver Name | Role | Phone | + +------+ + | Pending Pcp Addition | PCP | Unavailable | + +------+ + Reason for Visit Diagnostic Testing (Routine) +--------+--------+ + + + + | Status | Reason | Specialty | Diagnoses / | Referred By | Referred To | | | | | Procedures | Contact | Contact | +--------+--------+ + + + + | Closed | | Cardiology | Diagnoses | Cook, | Car Echo | | | | | AML (acute | Yari Jones MD | [facility] [address] | | | | | myeloid | [address] | [address] | | | | | leukemia) | [address] | [address] | | | | | (HCC) | [address] | Mailcode: | | | | | Encounter | [place], [place] | [id number] | | | | | for | [address] | [address] | | | | | long-term | Phone: | Building | | | | | current use | [phone] | [place], [place] | | | | | of | Fax: | [address] | | | | | medication | [phone] | Phone: | | | | | Procedures | | [phone] | | | | | TRANSTHORACI | | | | | | | C | | | | | | | ECHOCARDIOGR | | | | | | | AM, ADULT | | | | | | | IN ECHO | | | | | | | HEART | | | | | | | XTHORACIC,CO | | | | | | | MPLETE | | | +--------+--------+ + + + + Encounter Details +--------+ + + + + | Date | Type | Department | Care Team | Description | +--------+ + + + + | 08/10/ | Hospital | Cardiac | | | | 2016 | Encounter | Non-Invasive Testing | | | | | | at [address] [place] | | | | | | [address] | | | | | | [address] | | | | | | Mailcode: [id number] Je | | | | | | [address] | | | | | | [facility], | | | | | | [place] [address] | | | | | | [phone] | | | +--------+ + + + [...] + documented as of this encounter Progress Cheng Kohler - 08/10/2015 9:43 AM PSTTransthoracic echocardiogram completed. Final repor t to follow. documented in this encounte r Plan of Treatment +--------+---------+ + + + | Date | Type | Specialty | Care Team | Description | +--------+---------+ + + + | 05/19/ | Lab | Phlebotomy | | | | 2018 | | | | | +--------+---------+ + + + | 05/19/ | Office | Hematology | Yari Garcia MD | | | 2018 | Visit | Malignancy | [address] | | | | | | [address] | | | | | | [place], [place] | | | | | | [address] | | | | | | [phone] | | | | | | | | +--------+---------+ + + + documented as of this encounter Procedures + +--------+ + + + | Procedure Name | Priori | Date/Time | Associated Diagnosis | Comments | | | ty | | | | + +--------+ + + + | TRANSTHORACIC | Routin | 08/10/2015 | AML (acute myeloid | Results for this | | ECHOCARDIOGRAM, | e | 9:19 AM | leukemia) (HCC) | procedure are in the | | ADULT | | PST | Encounter for | results section. | | | | | long-term current | | | | | | use of medication | | + +--------+ + + + documented in this encounter Results TRANSTHORACIC ECHOCARDIOGRAM, ADULT (08/10/2015 9:19 AM PST) + + + + + + | Component | Value | Ref Range | Performed | Pathologist | | | | | At | Signature | + + + + + + | BIPVIJI, EF | 57 | | [facility] | | | | | | OF | | | | | | CARDIOLOGY | | + + + + + + | EJECTION | 55 to 60 | | [facility] | | | FRACTION | | | OF | | | | | | CARDIOLOGY | | + + + + + + | LA | 3.2 | | [facility] | | | DIMENSION | | | OF | | | | | | CARDIOLOGY | | + + + + + + | LVIDD | 5.5 | | [facility] | | | | | | OF | | | | | | CARDIOLOGY | | + + + + + + | MV A VMAX | 0.5 | | [facility] | | | | | | OF | | | | | | CARDIOLOGY | | + + + + + + | MV E? | 0.2 | | [facility] | | | | | | OF | | | | | | CARDIOLOGY | | + + + + + + | MV E VMAX | 0.8 | | [facility] | | | | | | OF | | | | | | CARDIOLOGY | | + + + + + + | RVSP | 21 | | [facility] | | | | | | OF | | | | | | CARDIOLOGY | | + + + + + + | RV TAPSE | 2.8 | | [facility] | | | | | | OF | | | | | | CARDIOLOGY | | + + + + + + | RV TDI S? | 12.0 | | [facility] | | | | | | OF | | | | | | CARDIOLOGY | | + + + + + + | EJECTION | 57.5 | % | [facility] | | | FRACTION | | | OF | | | RANGE MEAN | | | CARDIOLOGY | | | VALUE | | | | | + + [...] + + + + + | [facility] | [address] | [place], [place] | | | CARDIOLOGY | [address] | [address] | | + + + + + documented in this encounter Visit Diagnoses + + | Diagnosis | + + | AML (acute myeloid leukemia) (HCC) - Primary Acute myeloid leukemia, without mention | | of having achieved remission | + + | Encounter for long-term current use of medication | + + documented in this encounter"
--- OUTSIDE RECORDS SUMMARY | ~2019-05-17 | XMS | Encounter Summary ---
Demographics + + + | Address | [address] | | | [place] [address] | + + + | Home Phone | | + + + | Preferred Language | Unknown | + + + | Marital Status | | + + + | Protestant Affiliation | SPI | + + + | Race | White | + + + | Ethnic Group | Not or | + + + Author + + + | Organization | Unknown | + + + | Address | Unknown | + + + | Phone | Unavailable | + + + Support + + +---------+ + | Name | Relationship | Address | Phone | + + +---------+ + | Gabriel Kelly | ECON | Unknown | | + + +---------+ + Care Team Providers + +------+ + | Care Java Project Manager Name | Role | Phone | + +------+ + | Zayda Hinton | PCP | | + +------+ + Encounter Details +--------+--------+ + + + | Date | Type | Department | Care Team | Description | +--------+--------+ + + + | 12/09/ | Travel | | | | | 2018 | | | | | +--------+--------+ + [...] Rd | | | | | | [place], [place] | | | | | | [address] | | | | | | [phone] | | | | | | | | +--------+---------+ + + + documented as of this encounter Visit Diagnoses Not on filedocumented in this encounter"
--- OUTSIDE RECORDS SUMMARY | ~2019-05-17 | XMS | Encounter Summary ---
Demographics + + + | Address | [address] | | | [place] [address] | + + + | Home Phone | | + + + | Preferred Language | Unknown | + + + | Marital Status | | + + + | Hindu Affiliation | SPI | + + + | Race | White | + + + | Ethnic Group | Not or | + + + Author + + + | Author | [facility] | + + + | Organization | [facility] | + + + | Address | Unknown | + + + | Phone | Unavailable | + + + Support + + +---------+ + | Name | Relationship | Address | Phone | + + +---------+ + | Gabriel Kelly | ECON | Unknown | | + + +---------+ + Care Team Providers + +------+ + | Care Glove Operator Name | Role | Phone | + +------+ + | Pending Pcp Addition | PCP | Unavailable | + +------+ + Reason for Visit + + + | Reason | Comments | + + + | Lab Draw | | + + + Benefits Check [...] | | | | | | [place], | | | | | | | [place] | | | | | | | [address] | | | | | | | Phone: | | | | | | | [phone] | | | | | | | Fax: | | | | | | | [phone] | +--------+--------+ + + + + Encounter Details +--------+ + + + + | Date | Type | Department | Care Team | Description | +--------+ + + + + | 08/16/ | Clinical | Center for | | Lab Draw | | 2016 | Support | Hematologic | | | | | Staff | Malignancies at [facility] | | | | | | [address] | | | | | | [address] Mailcode: | | | | | | [id number] | | | | | | [place], | | | | | | [place] [address] | | | | | | [phone] | | | +--------+ + + + [...] + documented as of this encounter Progress Notes Cherri Winters RN - 08/16/2015 4:03 PM PSTPower PICC accessed per protocol. Good blood r eturn noted. Appropriate waste discarded. Labs drawn and sent. Power PICC pulse flushed w ith 20 mL NS. Pt ambulated and discharged from clinic to home. VSS. documented in this encounter Plan of Treatment [...] [address] | | | | | | [place], [place] | | | | | | [address] | | | | | | [phone] | | | | | | | | +--------+---------+ + + + documented as of this encounter Procedures + +--------+ + + + | Procedure Name | Priori | Date/Time | Associated Diagnosis | Comments | | | ty | | | | + +--------+ + + + | CMP, POC (BMP+LFT) | Routin | 08/16/2015 | Acute myeloid | Results for this | | | e | 3:22 PM | leukemia (AML), M4 | procedure are in the | | | | PST | ([facility]) | results section. | + +--------+ + + + | CBC+DIFF,POC | Routin | 08/16/2015 | Acute myeloid | Results for this | | | e | 3:04 PM | leukemia (AML), M4 | procedure are in the | | | | PST | ([facility]) | results section. | + +--------+ + + + | LDH TOTAL, PLASMA | Routin | 08/16/2015 | Acute myeloid | Results for this | | | e | 2:42 PM | leukemia (AML), M4 | procedure are in the | | | | PST | ([facility]) | results section. | + +--------+ + + + | TREATMENT PARAMETERS | Routin | 08/16/2015 | 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 | 2:41 PM | leukemia (AML), M4 | | | | | PST | (HCC) | | + +--------+ + + + | TREATMENT PARAMETERS | Routin | 08/16/2015 | 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 | 2:41 PM | leukemia (AML), M4 | | | | | PST | (HCC) | | + +--------+ + + + | TREATMENT PARAMETERS | Routin | 08/16/2015 | 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 | 2:41 PM | leukemia (AML), M4 | | | | | PST | (HCC) | | + +--------+ + + + | TREATMENT PARAMETERS | Routin | 08/16/2015 | 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 | 2:41 PM | leukemia (AML), M4 | | | | | PST | (HCC) | | + +--------+ + + + | TREATMENT PARAMETERS | Routin | 08/16/2015 | 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 | 2:41 PM | leukemia (AML), M4 | | | | | PST | (HCC) | | + +--------+ + + + | NURSING | Routin | 08/16/2015 | Acute myeloid | | | COMMUNICATION #3 - | e | 2:41 PM | leukemia (AML), M4 | | | [facility] | | PST | ([facility]) | | + +--------+ + + + | NURSING | Routin | 08/16/2015 | Acute myeloid | | | COMMUNICATION #2 - | e | 2:41 PM | leukemia (AML), M4 | | | [facility] | | PST | ([facility]) | | + +--------+ + + + | NURSING | Routin | 08/16/2015 | Acute myeloid | | | COMMUNICATION #1 - | e | 2:41 PM | leukemia (AML), M4 | | | [facility] | | PST | ([facility]) | | + +--------+ + + + | TREATMENT PARAMETERS | Routin | 08/16/2015 | Acute myeloid | | | #1 - [facility] | e | 2:41 PM | leukemia (AML), M4 | | | | | PST | ([facility]) | | + +--------+ + + + | TREATMENT PARAMETERS | Routin | 08/16/2015 | Acute myeloid | | | #1 - [facility] | e | 2:41 PM | leukemia (AML), M4 | | | | | PST | ([facility]) | | + +--------+ + + + | ANTIBODY SCREEN | Routin | 08/16/2015 | Acute myeloid | Results for this | | | e | 2:41 PM | leukemia (AML), M4 | procedure are in the | | | | PST | ([facility]) | results section. | + +--------+ + + + | TYPE AND SCREEN | Routin | 08/16/2015 | Acute myeloid | Results for this | | | e | 2:41 PM | leukemia (AML), M4 | procedure are in the | | | | PST | ([facility]) | results section. | + +--------+ + + + | ABO & RH TYPE | Routin | 08/16/2015 | Acute myeloid | Results for this | | | e | 2:41 PM | leukemia (AML), M4 | procedure are in the | | | | PST | ([facility]) | results section. | + +--------+ + + + documented in this encounter Results MALLORY LEONARDPOC (08/16/2015 3:22 PM PST) + +-------+ + + + | Component | Value | Ref Range | Performed | Pathologist | | | | | At | Signature | + +-------+ + + + | SODIUM, POC | 140 | 134 - 143 | [facility] | | | | | mmol/L | [facility] | | | | | | [facility] | | | | | | OF CARE | | | | | | TESTS | | + +-------+ + + + | POTASSIUM, | 4.7 | 3.4 - 5.0 | [facility] - | | | POC | | mmol/L | [facility] | | | | | | [facility] | | | | | | OF CARE | | | | | | TESTS | | + +-------+ + + + | TOTAL CO2, | 25 | 22 - 29 mmol/L | [facility] - | | | POC | | | [facility] | | | | | | [facility] | | | | | | OF CARE | | | | | | TESTS | | + +-------+ + + + | CHLORIDE, | 102 | 97 - 108 mmol/L | [facility] - | | | POC | | | [facility] | | | | | | [facility] | | | | | | OF CARE | | | | | | TESTS | | + +-------+ + + + | GLUCOSE, | 94 | 60 - 99 mg/dL | [facility] - | | | POC | | | [facility] | | | | | | [facility] | | | | | | OF CARE | | | | | | TESTS | | + +-------+ + + + | CALCIUM | 9.9 | 8.6 - 10.2 | [facility] - | | | TOTAL, POC | | mg/dL | [facility] | | | | | | [facility] | | | | | | OF CARE | | | | | | TESTS | | + +-------+ + + + | BUN, POC | 14 | 6 - 20 mg/dL | [facility] - | | | | | | [facility] | | | | | | [facility] | | | | | | OF CARE | | | | | | TESTS | | + +-------+ + + + | CREATININE, | 0.9 | 0.7 - 1.3 mg/dL | [facility] - | | | POC | | | [facility] | | | | | | [facility] | | | | | | OF CARE | | | | | | TESTS | | + +-------+ + + + | ALK PHOS, | 61 | 41 - 99 U/L | [facility] - | | | CMP POC | | | [facility] | | | | | | [facility] | | | | | | OF CARE | | | | | | TESTS | | + +-------+ + + + | ALT, CMP | 41 | 0 - 60 U/L | [facility] - | | | POC | | | [facility] | | | | | | [facility] | | | | | | OF CARE | | | | | | TESTS | | + +-------+ + + + | AST, CMP | 27 | 0 - 41 U/L | [facility] - | | | POC | | | [facility] | | | | | | [facility] | | | | | | OF CARE | | | | | | TESTS | | + +-------+ + + + | BILIRUBIN | 0.6 | 0.3 - 1.2 mg/dL | [facility] - | | | TOTAL, CMP | | | [facility] | | | POC | | | [facility] | | | | | | OF CARE | | | | | | TESTS | | + +-------+ + + + | ALBUMIN, | 4.1 | 3.5 - 4.7 g/dL | [facility] - | | | CMP POC | | | [facility] | | | | | | [facility], POINT | | | | | | OF CARE | | | | | | TESTS | | + +-------+ + + + | PROTEIN | 7.6 | 6.1 - 7.9 g/dL | [facility] - | | | TOTAL, CMP | | | [facility] | | | POC | | | [facility], POINT | | | | | | [...] + + + + | [facility] | [address] | [place], [place] | | | [facility] | [address] | [address] | | | TESTS | | | | + + + + + CBC+DIFF,POC (08/16/2015 3:04 PM PST) + + + + + + | Component | Value | Ref Range | Performed | Pathologist | | | | | At | Signature | + + + + + + | WBC POC | 1.2 (L) | 4.4 - 11.0 | [facility] | | | | | 10*3/uL | [facility] | | | | | | [facility] | | | | | | OF CARE | | | | | | TESTS | | + + + + + + | RBC POC | 2.98 (L) | 4.50 - 6.00 | [facility] - | | | | | 10*6/uL | [facility] | | | | | | [facility] | | | | | | OF CARE | | | | | | TESTS | | + + + + + + | HGB POC | 8.5 (L) | 13.5 - 17.5 | [facility] - | | | | | g/dL | [facility] | | | | | | [facility] | | | | | | OF CARE | | | | | | TESTS | | + + + + + + | HCT POC | 23.3 (L) | 41.0 - 53.0 % | [facility] | | | | | | [facility] | | | | | | [facility] | | | | | | OF CARE | | | | | | TESTS | | + + + + + + | MCV POC | 78.2 (L) | 80.0 - 96.0 fL | [facility] | | | | | | [facility] | | | | | | [facility] PO[facility] | | | | | | OF CARE | | | | | | TESTS | | + + + + + + | MCH POC | 28.5 | 28.5 - 32.3 pg | [facility] - | | | | | | [facility] | | | | | | [facility] PO[facility] | | | | | | OF CARE | | | | | | TESTS | | + + + + + + | MCHC POC | 36.5 | 33.0 - 35.5 | [facility] - | | | | | g/dL | [facility] | | | | | | [facility] | | | | | | OF CARE | | | | | | TESTS | | + + + + + + | RDW SD, POC | 30.2 (L) | 35.1 - 46.3 fL | [facility] | | | | | | [facility] | | | | | | [facility] | | | | | | OF CARE | | | | | | TESTS | | + + + + + + | PLT POC | 22 (L) | 150 - 400 | [facility] - | | | | | 10*3/uL | [facility] | | | | | | [facility] POINT | | | | | | OF CARE | | | | | | TESTS | | + + + + + + | MPV POC | 9.6 (L) | 9.7 - 12.3 fL | [facility] | | | | | | [facility] | | | | | | [facility]INT | | | | | | OF CARE | | | | | | TESTS | | + + + + + + | NEUTROPHIL% | 5.1 (L) | 50.0 - 70.0 % | [facility] - | | | POC | | | [facility] | | | | | | [facility], POINT | | | | | | OF CARE | | | | | | TESTS | | + + + + + + | LYMPH% POC | 28.2 | 18 - 42 % | [facility] | | | | | | [facility] | | | | | | [facility], POINT | | | | | | OF CARE | | | | | | TESTS | | + + + + + + | MONO %, POC | 54.7 (H) | 3.5 - 9.0 % | [facility] | | | | | | [facility] | | | | | | [facility], POINT | | | | | | OF CARE | | | | | | TESTS | | + + + + + + | EOS %, POC | 0.0 (L) | 1.0 - 3.0 % | [facility] | | | | | | [facility] | | | | | | [facility], POINT | | | | | | OF CARE | | | | | | TESTS | | + + + + + + | BASO %, POC | 12.0 (H) | 0.0 - 2.0 % | [facility] | | | | | | [facility] | | | | | | [facility] POINT | | | | | | OF CARE | | | | | | TESTS | | + + + + + + | NEUTROPHIL# | 0.1 (L) | 1.8 - 7.7 | [facility] - | | | POC | | 10*3/uL | [facility] | | | | | | [facility], POINT | | | | | | OF CARE | | | | | | TESTS | | + + + + + + | LYMPH# POC | 0.3 (L) | 1.0 - 4.8 | [facility] - | | | | | 10*3/uL | [facility] | | | | | | [facility] POINT | | | | | | OF CARE | | | | | | TESTS | | + + + + + + | MONO #, POC | 0.6 | 0.1 - 0.9 | [facility] - | | | | | 10*3/uL | [facility] | | | | | | [facility] | | | | | | OF CARE | | | | | | TESTS | | + + + + + + | EOS #, POC | 0.0 | 0.0 - 0.5 | [facility] - | | | | | 10*3/uL | [facility] | | | | | | [facility] PO[facility] | | | | | | OF CARE | | | | | | TESTS | | + + + + + + | BASO #, POC | 0.1 (H) | 0.0 - 0.1 | [facility] - | | | | | 10*3/uL | [facility] | | | | | | [facility] | | | | | | OF CARE | | | | | | TESTS | | + + + + + + | CBC | Counts reviewed. | | [facility] - | | | [...] + | [facility] | [address] | [place], [place] | | | [facility] | [address] | [address] | | | TESTS | | | | + + + + + LDH TOTAL, PLASMA (08/16/2015 2:42 PM PST) + +---------+ + + + | Component | Value | Ref Range | Performed | Pathologist | | | | | At | Signature | + +---------+ + + + | LD TOTAL, | 148 | <=250 U/L | [facility] | | [...] + + + + + | [facility] | [address] | [place] [address] | | | KOLE, INDRA | [address] | | | + + + + + ANTIBODY SCREEN (08/16/2015 2:41 PM PST) + + + + + + | Component | Value | Ref Range | Performed | Pathologist | | | | | At | Signature | + + + + + + | Antibody | Negative | | [facility] | | | Screen | | | LABORATORY | | | | | | SERVICES, | | | | | | TRANSFUSION | | | | | | MEDICINE | | + + + + + + + + | Specimen | + + | Blood - Blood | + + + + + + + | Performing | Address | City/State/Zipcode | Phone Number | | Organization | | | | + + + + + | [facility] | [address] | [place] [address] | | | SERVICES, | [address] | | | | TRANSFUSION MEDICINE | | | | + + + + + ABO & RH TYPE (08/16/2015 2:41 PM PST) + + + + + + | Component | Value | Ref Range | Performed | Pathologist | | | | | At | Signature | + + + + + + | ABO Group | A | | [facility] | | | | | | LABORATORY | | | | | | SERVICES, | | | | | | TRANSFUSION | | | | | | MEDICINE | | + + + + + + | Rh Type | Positive | | [facility] | | | | | | LABORATORY | | | | | | SERVICES, | | | | | | TRANSFUSION | | | | | | MEDICINE | | + + + + + + + + | Specimen | + + | Blood - Blood | + + + + + + + | Performing | Address | City/State/Zipcode | Phone Number | | Organization | | | | + + + + + | [facility] | [address] | [place] [address] | | | SERVICES, | [address] | | | | TRANSFUSION MEDICINE | | | | + + + + + documented in this encounter Visit Diagnoses + + | Diagnosis | + + | Acute myeloid leukemia (AML), M4 (HCC) | + + documented in this encounter"
--- OUTSIDE RECORDS SUMMARY | ~2019-05-17 | XMS | Encounter Summary ---
Demographics + + + | Address | [address] | | | [place] [address] | + + + | Home Phone | | + + + | Preferred Language | Unknown | + + + | Marital Status | | + + + | Protestant Affiliation | SPI | + + + | Race | White | + + + | Ethnic Group | Not or | + + + Author + + + | Author | [facility] | + + + | Organization | [facility] | + + + | Address | Unknown | + + + | Phone | Unavailable | + + + Support + + +---------+ + | Name | Relationship | Address | Phone | + + +---------+ + | Gabriel Kelly | ECON | Unknown | | + + +---------+ + Care Team Providers + +------+ + | Care Bulk Pallet Builder Name | Role | Phone | + +------+ + | No Pcp Per Patient | PCP | Unavailable | + +------+ + Encounter Details +--------+ + + + + | Date | Type | Department | Care Team | Description | +--------+ + + + + | 10/16/ | Medical Services Manager | Center for | Yari Garcia MD | S/P allogeneic bone | | 2017 | | Hematologic | [address] | marrow transplant | | | | Malignancies at | [address] | ([facility]) (Primary Dx) | | | | [facility] | [place], [place] | | | | | [address] | [address] | | | | | [address] Mailcode: | [phone] | | | | | [id number] | | | | | | [place], | | | | | | [place] [address] | | | | | | [phone] | | | +--------+ + + + [...] [address] | | | | | | [place], [place] | | | | | | [address] | | | | | | [phone] | | | | | | | | +--------+---------+ + + + documented as of this encounter Visit Diagnoses + + | Diagnosis | + + | 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
--- OUTSIDE RECORDS SUMMARY | ~2019-05-17 | XMS | Encounter Summary ---
Demographics + + + | Address | [address] | | | [place] [address] | + + + | Home Phone | | + + + | Preferred Language | Unknown | + + + | Marital Status | | + + + | Jainism Affiliation | SPI | + + + | Race | White | + + + | Ethnic Group | Not or | + + + Author + + + | Author | [facility] | + + + | Organization | [facility] | + + + | Address | Unknown | + + + | Phone | Unavailable | + + + Support + + +---------+ + | Name | Relationship | Address | Phone | + + +---------+ + | Gabriel Kelly | ECON | Unknown | | + + +---------+ + Care Team Providers + +------+ + | Care Tetryl Nitrator Operator Name | Role | Phone | + +------+ + | Zayda Hinton | PCP | | + +------+ + Encounter Details +--------+ + + + + | Date | Type | Department | Care Team | Description | +--------+ + + + + | 08/09/ | Pharmacy | Specialty Pharmacy | | | | 2016 | Visit | Services [address] | | | | | | [address] | | | | | | [place], [place] | | | | | | [address] | | | | | | [phone] | | | +--------+ + + + [...] 2019 | Visit | Malignancy | [address] [address] | | | | | | [address] | | | | | | [place], [place] | | | | | | [address] | | | | | | [phone] | | | | | | | | +--------+---------+ + + + documented as of this encounter Visit Diagnoses Not on filedocumented in this encounter"
--- OUTSIDE RECORDS SUMMARY | ~2019-05-17 | XMS | Encounter Summary ---
Demographics + + + | Address | [address] | | | [place] [address] | + + + | Home Phone | | + + + | Preferred Language | Unknown | + + + | Marital Status | | + + + | Zoroastrianism Affiliation | SPI | + + + | Race | White | + + + | Ethnic Group | Not or | + + + Author + + + | Author | [facility] | + + + | Organization | [facility] | + + + | Address | Unknown | + + + | Phone | Unavailable | + + + Support + + +---------+ + | Name | Relationship | Address | Phone | + + +---------+ + | Gabriel Kelly | ECON | Unknown | | + + +---------+ + Care Team Providers + +------+ + | Care Cage Tender Name | Role | Phone | + +------+ + | Pending Pcp Addition | PCP | Unavailable | + +------+ + Reason for Visit + + + | Reason | Comments | + + + | Transfusion | plt, PRBCs | + + + | Schedule labs | PICC | + + + Benefits Check (Routine) +--------+--------+ + + + + | Status | Reason | Specialty | Diagnoses / | Referred By | Referred To | | | | | Procedures | Contact | Contact | +--------+--------+ + + + + | Closed | | Hematology | Diagnoses | [facility] | [facility], | | | | Malignancy | BMT | Epic Dept | Yari Jones MD | | | | | | | [address] | | | | | | | [address] | | | | | | | [place], | | | | | | | [place] | | | | | | | [address] | | | | | | | Phone: | | | | | | | [phone] | | | | | | | Fax: | | | | | | | [phone] | +--------+--------+ + + + + Encounter Details +--------+ + + + + | Date | Type | Department | Care Team | Description | +--------+ + + + + | 08/13/ | Clinical | Center for | | Transfusion (plt, | | 2016 | Support | Hematologic | | PRBCs); Schedule | | | Staff | [facility] at [facility] | | labs (PICC) | | | | [address] | | | | | | [place] Mailcode: | | | | | | [id number] | | | | | | [place], | | | | | | [place] [address] | | | | | | [phone] | | | +--------+ + + + [...] + + + | Blood Pressure | 122/87 | 08/13/2015 7:00 PM | | | | | PST | | + + + + + | Pulse | 56 | 08/13/2015 7:00 PM | | | | | PST | | + + + + + | Temperature | 36.7 C (98.1 F) | 08/13/2015 7:00 PM | | | | | PST | | + + + + + | Respiratory Rate | 16 | 08/13/2015 7:00 PM | | | | | PST | | + + + + + | Oxygen Saturation | 100% | 08/13/2015 7:00 PM | | | | | PST | | + + + + + | Inhaled Oxygen | - | - | | | Concentration | | | | + + + + + | Weight | 82.3 kg (181 lb 7 | 08/13/2015 3:50 PM | | | | oz) | PST | | + + + + + | Height | - | - | | + + + + + | Body Mass Index | 22.98 | 07/15/2015 1:57 PM | | | | | PST | | + + + + + documented in this encounter Progress Notes Jyoti Ramachandran, RN - 08/13/2015 4:49 PM PST Patient reports he is feeling well today, but states that he has felt light headed the pas t couple days when he stands up to fast. The patient denies colds, flu, fever, infection, n ausea, vomiting, diarrhea, constipation, signs or symptoms of neuropathy, mucositis, edema, skin rash, urinary issues, and signs or symptoms of bleeding. The patient reports that he does not have much of an appetite PICC accessed per protocol by Kassandra Levin RN. Lab Results Component Value Date HCT 20.9 08/13/2015 HB 7.5 08/13/2015 Orders to transfuse PRBC product for a Hematocrit today as above. Type and cross for 1 uni ts of PRBC was sent to Blood Bank. Each unit was checked by two RNs to confirm the unit num heaven, ABO and Rh type printed on tag matched information on blood bag and to confirm crossmat ch compatibility. At the bedside, two RNs verified the correct patient using two unique palomo ntifiers, confirmed the unit number, ABO and Rh type printed on tag matched the information on blood bag and confirmed crossmatch compatibility. Informed consent was verified. The patient was premedicated with Benadryl 25 mg, then received 1 unit of PRBCs per Provide r s orders. Transfusion was tolerated well without complication. Frequent vital signs we re monitored throughout the transfusion and reviewed by me. For transfusion details, see ON C Lines & Transfusions doc flowsheet. Lab Results Component Value Date PLT 10 08/13/2015 Orders to transfuse platelet product for a platelet count today as above. Each unit was paolo cked by two RNs to confirm the unit number, ABO and Rh type printed on tag matched informati on on blood bag and to confirm crossmatch compatibility. At the bedside, two RNs verified t he correct patient using two unique identifiers, confirmed the unit number, ABO and Rh type printed on tag matched the information on blood bag and confirmed crossmatch compatibility. Informed consent was verified. The patient was not premedicated as he received 25 mg PO Benadryl prior to his blood transf usion. He received 1 unit of platelets per Provider s orders. Transfusion was tolerated well without complication. Frequent vital signs were monitored throughout the transfusion a nd reviewed by me. For transfusion details, see ONC Lines & Transfusions doc flowsheet. Pt discharged from clinic. Left clinic Ambulatory accompanied by spouse. Jyoti Ramachandran RN assandra Levin RN - 11/2015 4:21 PM PSTPower PICC accessed per protocol. Good blood return noted. Appropriate waste discarded. Labs drawn and sent. Power PICC pulse flushed with 20 mL NS. Electronica lly signed by Kassandra Levin RN at 08/18/2015 2:21 PM PSTJhon Leblanc MA - 08/13/2015 4:01 PM PSTName of Test: CBC Result: PLT 10 Time Results Received: 1600 Name of Provider Notified: Lobo Rizzo MD Date/Time of Provider Notification: 08/13/15 1605 Action(s) Taken: Readback, nurse notified. Paco Leblanc CMA documented in this encounter Plan of Treatment [...] 2019 | Visit | Malignancy | [address] | | | | | | [address] | | | | | | [place], [place] | | | | | | [address] | | | | | | [phone] | | | | | | | | +--------+---------+ + + + documented as of this encounter Procedures + +--------+ + + + | Procedure Name | Priori | Date/Time | Associated Diagnosis | Comments | | | ty | | | | + +--------+ + + + | PRODUCT - RED CELLS | Routin | 08/13/2015 | Acute myeloid | Results for this | | LEUKOREDUCED | e | 4:08 PM | leukemia (AML), M4 | procedure are in the | | | | PST | ([facility]) | results section. | + +--------+ + + + | PRODUCT - PLATELET | Routin | 08/13/2015 | Acute myeloid | Results for this | | PHERESIS | e | 4:07 PM | leukemia (AML), M4 | procedure are in the | | LEUKOREDUCED | | PST | ([facility]) | results section. | + +--------+ + + + | CBC+DIFF,POC | Routin | 08/13/2015 | Acute myeloid | Results for this | | | e | 3:59 PM | leukemia (AML), M4 | procedure are in the | | | | PST | ([facility]) | results section. | + +--------+ + + + | CMP, POC (BMP+LFT) | Routin | 08/13/2015 | Acute myeloid | Results for this | | | e | 3:58 PM | leukemia (AML), M4 | procedure are in the | | | | PST | ([facility]) | results section. | + +--------+ + + + | ANTIBODY SCREEN | Routin | 08/13/2015 | Acute myeloid | Results for this | | | e | 3:47 PM | leukemia (AML), M4 | procedure are in the | | | | PST | ([facility]) | results section. | + +--------+ + + + | TYPE AND SCREEN | Routin | 08/13/2015 | Acute myeloid | Results for this | | | e | 3:47 PM | leukemia (AML), M4 | procedure are in the | | | | PST | ([facility]) | results section. | + +--------+ + + + | ABO & RH TYPE | Routin | 08/13/2015 | Acute myeloid | Results for this | | | e | 3:47 PM | leukemia (AML), M4 | procedure are in the | | | | PST | ([facility]) | results section. | + +--------+ + + + | LDH TOTAL, PLASMA | Routin | 08/13/2015 | Acute myeloid | Results for this | | | e | 3:47 PM | leukemia (AML), M4 | procedure are in the | | | | PST | ([facility]) | results section. | + +--------+ + + + documented in this encounter Results PRODUCT - RED CELLS LEUKOREDUCED (08/13/2015 4:08 PM PST) + + + + + + | Component | Value | Ref Range | Performed | Pathologist | | | | | At | Signature | + + + + + + | PRODUCT | -1 RED BLOOD CELLS | | [facility] | | | DESCRIPTION | ADENINE-SALINE ADDED | | DEPARTMENT | | | | LEUKOCYT | | OF | | | | | | PATHOLOGY | | + + + + + + | PRODUCT | [id number] | | [facility] | | | UNIT # | | | DEPARTMENT | | | | | | OF | | | | | | PATHOLOGY | | + + + + + + | UNIT ABO | A | | [facility] | | | | | | DEPARTMENT | | | | | | OF | | | | | | PATHOLOGY | | + + + + + + | UNIT RH | POS | | [facility] | | | | | | DEPARTMENT | | | | | | OF | | | | | | PATHOLOGY | | + + + + + + | STATUS OF | Presumed Transfused | | [facility] | | | UNIT | | | DEPARTMENT | | | | | | OF | | | | | | PATHOLOGY | | + + + + + + | EXPIRATION | [id number] | | [facility] | | | DATE | | | DEPARTMENT | | | | | | OF | | | | | | PATHOLOGY | | + + + + + + | BLOOD TYPE | 6200 | | [facility] | | | BARCODE | | | DEPARTMENT | | | | | | OF | | | | | | PATHOLOGY | | + + + + + + | BLOOD | [id number] | | [facility] | | | PRODUCT | | | DEPARTMENT | | | CODE | | | OF | | | | | | PATHOLOGY | | + + + + + + + + | Specimen | + + | | + + + + + + + | Performing | Address | City/State/Zipcode | Phone Number | | Organization | | | | + + + + + | [facility] | [address] | [place] [address] | | | PATHOLOGY | [address] | | | + + + + + PRODUCT - PLATELET PHERESIS LEUKOREDUCED (08/13/2015 4:07 PM PST) + + + + + + | Component | Value | Ref Range | Performed | Pathologist | | | | | At | Signature | + + + + + + | PRODUCT | PLATELETS PHERESIS, | | [facility] | | | DESCRIPTION | LEUKOCYTE REDUCED, | | DEPARTMENT | | | | IRRADIATED | | OF | | | | | | PATHOLOGY | | + + + + + + | PRODUCT | [id number] | | [facility] | | | UNIT # | | | DEPARTMENT | | | | | | OF | | | | | | PATHOLOGY | | + + + + + + | UNIT ABO | O | | [facility] | | | | | | DEPARTMENT | | | | | | OF | | | | | | PATHOLOGY | | + + + + + + | UNIT RH | POS | | [facility] | | | | | | DEPARTMENT | | | | | | OF | | | | | | PATHOLOGY | | + + + + + + | STATUS OF | Presumed Transfused | | [facility] | | | UNIT | | | DEPARTMENT | | | | | | OF | | | | | | PATHOLOGY | | + + + + + + | EXPIRATION | [id number] | | [facility] | | | DATE | | | DEPARTMENT | | | | | | OF | | | | | | PATHOLOGY | | + + + + + + | BLOOD TYPE | 5100 | | [facility] | | | BARCODE | | | DEPARTMENT | | | | | | OF | | | | | | PATHOLOGY | | + + + + + + | BLOOD | [id number] | | [facility] | | | PRODUCT | | | DEPARTMENT | | | CODE | | | OF | | | | | | PATHOLOGY | | + + + + + + + + | Specimen | + + | | + + + + + + + | Performing | Address | City/State/Zipcode | Phone Number | | Organization | | | | + + + + + | [facility] | [address] | [place] [address] | | | PATHOLOGY | [address] | | | + + + + + CBC+DIFF,POC (08/13/2015 3:59 PM PST) + + + + + + | Component | Value | Ref Range | Performed | Pathologist | | | | | At | Signature | + + + + + + | WBC POC | 0.7 (L) | 4.4 - 11.0 | [facility] - | | | | | 10*3/uL | [facility] | | | | | | [facility] | | | | | | OF CARE | | | | | | TESTS | | + + + + + + | RBC POC | 2.67 (L) | 4.50 - 6.00 | [facility] - | | | | | 10*6/uL | [facility] | | | | | | [facility] | | | | | | OF CARE | | | | | | TESTS | | + + + + + + | HGB POC | 7.5 (L) | 13.5 - 17.5 | [facility] - | | | | | g/dL | [facility] | | | | | | EM[facility], POINT | | | | | | OF CARE | | | | | | TESTS | | + + + + + + | HCT POC | 20.9 (L) | 41.0 - 53.0 % | [facility] - | | | | | | [facility] | | | | | | [facility], POINT | | | | | | OF CARE | | | | | | TESTS | | + + + + + + | MCV POC | 78.3 (L) | 80.0 - 96.0 fL | [facility] - | | | | | | [facility] | | | | | | [facility], POINT | | | | | | OF CARE | | | | | | TESTS | | + + + + + + | MCH POC | 28.1 (L) | 28.5 - 32.3 pg | [facility] - | | | | | | [facility] | | | | | | [facility], POINT | | | | | | OF CARE | | | | | | TESTS | | + + + + + + | MCHC POC | 35.9 | 33.0 - 35.5 | [facility] - | | | | | g/dL | [facility] | | | | | | [facility] | | | | | | OF CARE | | | | | | TESTS | | + + + + + + | RDW SD, POC | 29.7 (L) | 35.1 - 46.3 fL | [facility] - | | | | | | [facility] | | | | | | [facility] | | | | | | OF CARE | | | | | | TESTS | | + + + + + + | PLT POC | 10 (AA) | 150 - 400 | [facility] - | | | | | 10*3/uL | [facility] | | | | | | [facility] | | | | | | OF CARE | | | | | | TESTS | | + + + + + + | MPV POC | 10.7 | 9.7 - 12.3 fL | [facility] - | | | | | | [facility] | | | | | | EM[facility], POINT | | | | | | OF CARE | | | | | | TESTS | | + + + + + + | NEUTROPHIL% | 2.9 (L) | 50.0 - 70.0 % | [facility] - | | | POC | | | [facility] | | | | | | EMMA, POINT | | | | | | OF CARE | | | | | | TESTS | | + + + + + + | LYMPH% POC | 33.3 | 18 - 42 % | [facility] - | | | | | | [facility] | | | | | | EM[facility], POINT | | | | | | OF CARE | | | | | | TESTS | | + + + + + + | MONO %, POC | 56.9 (H) | 3.5 - 9.0 % | [...] + + | BASO %, POC | 6.9 (H) | 0.0 - 2.0 % | [facility] - | | | | | | [facility] | | | | | | [facility] POINT | | | | | | OF CARE | | | | | | TESTS | | + + + + + + | NEUTROPHIL# | 0.0 (L) | 1.8 - 7.7 | [facility] - | | | POC | | 10*3/uL | [facility] | | | | | | [facility] POINT | | | | | | OF CARE | | | | | | TESTS | | + + + + + + | LYMPH# POC | 0.2 (L) | 1.0 - 4.8 | [facility] - | | | | | 10*3/uL | [facility] | | | | | | [place], POINT | | | | | | OF CARE | | | | | | TESTS | | + + + + + + | MONO #, POC | 0.4 | 0.1 - 0.9 | [facility] - [...] | | | | | 10*3/uL | [facility] | | | | | | [facility] POINT | | | | | | OF CARE | | | | | | TESTS | | + + + + + + | CBC | Counts reviewed. | | [facility] - | | | HOOD, | | | [facility] | | | PHIL | | | [facility] | | [...] + + + + + | [facility] | [address] | [place], [place] | | | [facility] [place] | [facility] | [address] | | | TESTS | | | | + + + + + CMP METABOL,POC (08/13/2015 3:58 PM PST) + +---------+ + + + [...] +---------+ + + + | POTASSIUM, | 4.5 | 3.4 - 5.0 | [facility] - [...] +---------+ + + + | CHLORIDE, | 106 | 97 - 108 mmol/L | [facility] - | | | POC | | | [facility] | | | | | | [facility] | | | | | | OF CARE | | | | | | TESTS | | + +---------+ + + + | GLUCOSE, | 107 (H) | 60 - 99 mg/dL | [...] +---------+ + + + | CREATININE, | 0.9 | 0.7 - 1.3 mg/dL | [facility] - | | | POC | | | [facility] | | | | | | [facility] | | | | | | OF CARE | | | | | | TESTS | | + +---------+ + + + | ALK PHOS, | 66 | 41 - 99 U/L | [facility] [...] + + + | AST, CMP | 23 | 0 - 41 U/L | [facility] - | | | POC | | | [facility] | | | | | | EMMA, POINT | | | | | | OF CARE | | | | | | TESTS | | + +---------+ + + + | BILIRUBIN | 0.6 | 0.3 - 1.2 mg/dL | [facility] - | | | TOTAL, CMP | | | [facility] | | | POC | | | EM[facility] POINT | | | | | | OF CARE | | | | | | TESTS | | + +---------+ + + + | ALBUMIN, | 3.8 | 3.5 - 4.7 g/dL | [facility] - | | | CMP POC | | | [facility] | | | | | | [facility] POINT | | | | | | OF CARE | | | | | | TESTS | | + +---------+ + + + | PROTEIN | 7.0 | 6.1 - 7.9 g/dL | [facility] [...] [facility] | [address] | [place], [place] | | | [facility] POINT OF CARE | [address] | [address] | | | TESTS | | | | + + + + + ANTIBODY SCREEN (08/13/2015 3:47 PM PST) + + + + + [...] [facility] | [address] | [place] [address] | | | SERVICES, | [address] | | | | TRANSFUSION MEDICINE | | | | + + + + + ABO & RH TYPE (08/13/2015 3:47 PM PST) + + + + + [...] + + | [facility] | [address] [facility] | [place] [address] | | | SERVICES, | [address] | | | | TRANSFUSION MEDICINE | | | | + + + + + LDH TOTAL, PLASMA (08/13/2015 3:47 PM PST) + +---------+ + + + | Component | Value | Ref Range | Performed | Pathologist | | | | | At | Signature | + +---------+ + + + | LD TOTAL, | 122 | <=250 U/L | [facility] | | [...] | + + + + + | [facility] | [address] | [place] [address] | | | SERVICES, INDRA | [address] | | | + + + + + documented in this encounter Visit Diagnoses + + | Diagnosis | + + | Acute myeloid leukemia (AML), M4 (HCC) | + + documented in this encounter Administered Medications + +--------+ +-------+------+------+ | Medication Order | MAR | Action | Dose | Rate | Site | | | Action | Date | | | | + +--------+ +-------+------+------+ | diphenhydrAMINE (BENADRYL) | Given | 08/13/ | 25 mg | | | | capsule 25 mg 25 mg, oral, ONCE, | | 16 4:05 | | | | | 1 dose, 08/13/15 at 1600 | | PM PST | | | | + +--------+ +-------+------+------+ +---+---+ | | | +---+---+ documented in this encounter"
--- OUTSIDE RECORDS SUMMARY | ~2019-05-17 | XMS | Encounter Summary ---
Demographics + + + | Address | [address] | | | [place] [address] | + + + | Home Phone | | + + + | Preferred Language | Unknown | + + + | Marital Status | | + + + | Restoration Affiliation | SPI | + + + | Race | White | + + + | Ethnic Group | Not or | + + + Author + + + | Author | [facility] | + + + | Organization | [facility] | + + + | Address | Unknown | + + + | Phone | Unavailable | + + + Support + + +---------+ + | Name | Relationship | Address | Phone | + + +---------+ + | Gabriel Kelly | ECON | Unknown | | + + +---------+ + Care Team Providers + +------+ + | Care Senior Net Software Developer Name | Role | Phone | + +------+ + | Pending Pcp Addition | PCP | Unavailable | + +------+ + Encounter Details +--------+ + + + + | Date | Type | Department | Care Team | Description | +--------+ + + + + | 10/26/ | Hospital | Diagnostic | | | | 2015 | Encounter | [facility] | | | | | | [address] | | | | | | [place] Mailcode: | | | | | | [address] | | | | | | [place], | | | | | | [place] [address] | | | | | | [phone] | | | +--------+ + + + [...] 2019 | Visit | Malignancy | [address] [facility] | | | | | | [address] | | | | | | [place], [place] | | | | | | [address] | | | | | | [phone] | | | | | | | | +--------+---------+ + + + documented as of this encounter Procedures + +--------+ + + + | Procedure Name | Priori | Date/Time | Associated Diagnosis | Comments | | | ty | | | | + +--------+ + + + | X-RAY CHEST 2 VIEW | Routin | 10/27/2015 | Other | Results for this | | | e | 1:54 PM | cytomegaloviral | procedure are in the | | | | PDT | diseases (HCC) | results section. 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 COMPARISON: | | | | | | 09/03/15 FINDINGS: | | | | | | Left-sided Port-A-Cath | | | | | | unchanged in position | | | | | | with tip in the region | | | | | | of thecavoatrial | | | | | | junction. Heart size | | | | | | is normal. Mediastinal | | | | | | contours are normal.The | | | | | | lungs are clear. | | | | | | There is no pulmonary | | | | | | edema. No pleural | | | | | | effusion isevident. | | | | | | Osseous structures are | | | | | | intact. IMPRESSION: | | | | | | Clear lungs. Attending | | | | | | Radiologists: FERNY | | | | | | BHAVESH TURNERuthor: | | | | | | FERNY TURNER MD I | | | | | | personally reviewed the | | | | | | images and, if | | | | | | necessary, edited the | | | | | | report. I agreewith the | | | | | | report as now presented. | | | | | | | | | | | | Final/Electronically | | | | | | signed / FERNY | | | | | | YUE 10/27/2015 14:22 | | | | | | PM | | | | + + + + + + + + | Specimen | + + | | + + + +---------+ + + | Performing | Address | City/State/Zipcode | Phone Number | | Organization | | | | + +---------+ + + | [facility] DEPARTMENT OF | | | | | RADIOLOGY | | | | + +---------+ + + documented in this encounter Visit Diagnoses + + | Diagnosis | + + | Other cytomegaloviral diseases (HCC) | + + documented in this encounter"
--- OUTSIDE RECORDS SUMMARY | ~2019-05-17 | XMS | Encounter Summary ---
Demographics + + + | Address | [address] | | | [place] [address] | + + + | Home Phone | | + + + | Preferred Language | Unknown | + + + | Marital Status | | + + + | Buddhist Affiliation | SPI | + + + | Race | White | + + + | Ethnic Group | Not or | + + + Author + + + | Author | [facility] | + + + | Organization | [facility] | + + + | Address | Unknown | + + + | Phone | Unavailable | + + + Support + + +---------+ + | Name | Relationship | Address | Phone | + + +---------+ + | Gabriel Kelly | ECON | Unknown | | + + +---------+ + Care Team Providers + +------+ + | Care Hat Cleaner Name | Role | Phone | + +------+ + | Zayda Hinton | PCP | | + +------+ + Encounter Details +--------+ + + + + | Date | Type | Department | Care Team | Description | +--------+ + + + + | 04/28/ | Pharmacy | Specialty Pharmacy | | | | 2015 | Visit | Services [address] | | | | | [address] | | | | | | [place], [place] | | | | | | [address] | | | | | | [phone] | | | +--------+ + + + [...] 2019 | Visit | Malignancy | [address] [facility] | | | | | | [address] | | | | | | [place], [place] | | | | | | [address] | | | | | | [phone] | | | | | | | | +--------+---------+ + + + documented as of this encounter Visit Diagnoses Not on filedocumented in this encounter"
--- OUTSIDE RECORDS SUMMARY | ~2019-05-17 | XMS | Encounter Summary ---
Demographics + + + | Address | [address] | | | [place] [address] | + + + | Home Phone | | + + + | Preferred Language | Unknown | + + + | Marital Status | | + + + | Church Affiliation | SPI | + + + [...] Team Providers + +------+ + | Care Lug Loader Name | Role | Phone | + [...] Description | +--------+--------+ + + + | 12/06/ | Refill | Center for | [facility] FNP | Refill Request | | 2018 | | Hematologic | [address] [facility] | | | | | Malignancies at | [facility] | | | | | [address] | [place], [place] | | | | | [address] [facility] | [address] | | | | | [facility] Mailcode: | [phone] | | | | | [id number] [place] | | | | | | [place], | | | | | | [place] [address] | | | | | | [phone] | | | +--------+--------+ + + + [...] 2019 | Visit | Malignancy | [address] [facility] | | | | | | [address] | | | | | | [place] | | | | | | [address] | | | | | | [phone] | | | | | | | | +--------+---------+ + + + documented as of this encounter Visit Diagnoses Not on filedocumented in this encounter"
--- OUTSIDE RECORDS SUMMARY | ~2019-05-17 | XMS | Encounter Summary ---
Demographics + + + | Address | [address] | | | [place] [address] | + + + | Home Phone | | + + + | Preferred Language | Unknown | + + + | Marital Status | | + + + | Yazidi Affiliation | SPI | + + + [...] Team Providers + +------+ + | Care Academic Assistant Name | Role | Phone | + +------+ + | Pending Pcp Addition | PCP | Unavailable | + +------+ + Reason for Visit + + + | Reason | Comments | + + + | Lab Draw | PIV | + + + | Medication | Morphine, Ondansetron | | Administration | | + + + | Biopsy | Bone Marrow | + + + Office Visit - [...] | | | | | achieved | [place], [place] | [id number] | | | | | remission | [address] | [facility] | | | | | | Phone: | Pavilion | | | | | Procedures | [phone] | [place], [place] | | | | | Post BMT | Fax: | [address] | | | | | Auth to | [phone] | Phone: | | | | | included | | [phone] | | | | | facility, | | Fax: | | | | | diagnostics, | | [phone] | | | | | office | | | | | | | visits and | | | | | | | surgery | | | +--------+---------+ + + + + Encounter Details +--------+ + + + + | Date | Type | Department | Care Team | Description | +--------+ + + + + | 08/31/ | Clinical | [facility] | | Lab Draw (PIV); | | 2017 | Support | Hematologic | | Medication | | | Staff | [facility] at [facility] | | Administration | | | | [address] | | (Morphine, | | | | Wally Burger Mailcode: | | Ondansetron); Biopsy | | | | [id number] | | (Bone Marrow) | | | | [place], | | | | | | [place] [address] | | | | | | [phone] | | | +--------+ + + + [...] documented as of this encounter Progress Notes Deedee Carter, ZAFAR - 08/31/2016 9:30 AM PSTAssessment Patient ambulates into clinic today with their caregiver. 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 Patient reports they are feeling well today. Pt reports that he is slightly nauseous, but h as no other complaints. The patient denies colds, flu, fever, infection, vomiting, diarrhea, constipation, signs or symptoms of mucositis, edema, skin rash, urinary issues, shortness of breath and signs or symptoms of bleeding. The patient reports that they are eating well and drinking at least tw o liters of fluid daily. Patient scheduled for provider visit today with ORLY Yanes. Labs 22 gauge PIV placed in patient s right antcubitae, using an IV start kit. PIV with excel lent blood return. Labs drawn and sent. PIV flushed with 10 mL NS without any problems. Ster ile transparent dressing applied. Patient tolerated procedure well. Bone Marrow Biopsy Patient premedicated with Morphine 4mg IV per ORLY Yanes orders. Patient became more nauseous and threw up after administration of Morphine. VORB ORLY Yanes/Deedee finney RN: Ondansetron 4mg IV x 1 administered. Patient reports relief. Bone marrow biopsy comple edward. PIV dc'd. Patient observed for 15 minutes post-procedure. Bone Marrow biopsy dressing dry and intact. Post bone marrow biopsy instructions reviewed with patient/caregiver. Patient instructed to keep dressing on X 24 hours then remove dress ing and assess site for redness, swelling or drainage and to call triage nurse if it develop s any of these symptoms or develops worsening pain or discomfort at biopsy site. Patient ma y leave dressing off if site scabbed over otherwise apply band aid until scabbed over and re assess area every 24 hours until healed. Patient/caregiver states understanding. Patient di scharged home with spouse. For details, see [facility] doc flow sheet. Patient was reminded to call clinic with temp > 100.4, chills, s/s of bleeding or uncontrol led N/V/D/C. Patient verbalizes understanding. All questions answered. Patient was instructe d to check out at the net front end developer prior to leaving the clinic. Patient d/c d ambulatory in stable condition. Next Appointment in [facility] is on 09/11/16 at 8:30 am with Tequila Block. documented in this enc ounter Plan of [...] 2018 | Visit | Malignancy | [address] | | | | | | [address] | | | | | | [place], [place] | | | | | | [address] | | | | | | [phone] | | | | | | | | +--------+---------+ + + + documented as of this encounter Procedures + +--------+ + + + | Procedure Name | Priori | Date/Time | Associated Diagnosis | Comments | | | ty | | | | + +--------+ + + + | CMP, POC (BMP+LFT) | Routin | 08/31/2016 | S/P allogeneic | Results for this | | | e | 9:51 AM | bone marrow | procedure are in the | | | | PST | transplant ([facility]) | results section. | + +--------+ + + + | LYMPHOCYTE | Urgent | 08/31/2016 | S/P allogeneic | | | ACTIVATION(LYMPH | | 9:35 AM | bone marrow | | | RECONSTITUTION/ACTIV | | PST | transplant ([facility]) | | | ATE)BLOOD | | | | | + +--------+ + + + | TSH W/REFLEX TO FREE | Urgent | 08/31/2016 | S/P allogeneic | Results for this | | T4(IF ABNORMAL) | | 9:35 AM | bone marrow | procedure are in the | | | | PST | transplant ([facility]) | results section. | + +--------+ + + + | CBC AND AUTO DIFF | Urgent | 08/31/2016 | S/P allogeneic | Results for this | | | | 9:35 AM | bone marrow | procedure are in the | | | | PST | transplant ([facility]) | results section. | + +--------+ + + + | LYMPHOCYTE | Urgent | 08/31/2016 | S/P allogeneic | Results for this | | ACTIVATION(LYMPH | | 9:35 AM | bone marrow | procedure are in the | | RECONSTITUTION/ACTIV | | PST | transplant ([facility]) | results section. | | ATE),BLOOD | | | | | + +--------+ + + + | CBC, WITH | Urgent | 08/31/2016 | S/P allogeneic | Results for this | | DIFFERENTIAL | | 9:35 AM | bone marrow | procedure are in the | | | | PST | transplant ([facility]) | results section. | + +--------+ + + + | VITAMIN D, | Urgent | 08/31/2016 | S/P allogeneic | Results for this | | 25-HYDROXY, SERUM | | 9:35 AM | bone marrow | procedure are in the | | | | PST | transplant ([facility]) | results section. | + +--------+ + + + | IGM, SERUM | Urgent | 08/31/2016 | S/P allogeneic | Results for this | | | | 9:35 AM | bone marrow | procedure are in the | | | | PST | transplant ([facility]) | results section. | + +--------+ + + + | IGG, SERUM | Urgent | 08/31/2016 | S/P allogeneic | Results for this | | | | 9:35 AM | bone marrow | procedure are in the | | | | PST | transplant ([facility]) | results section. | + +--------+ + + + | IGA, SERUM | Urgent | 08/31/2016 | S/P allogeneic | Results for this | | | | 9:35 AM | bone marrow | procedure are in the | | | | PST | transplant ([facility]) | results section. | + +--------+ + + + | FERRITIN | Urgent | 08/31/2016 | S/P allogeneic | Results for this | | | | 9:35 AM | bone marrow | procedure are in the | | | | PST | transplant ([facility]) | results section. | + +--------+ + + + | TESTOSTERONE, SERUM | Urgent | 08/31/2016 | S/P allogeneic | Results for this | | | | 9:35 AM | bone marrow | procedure are in the | | | | PST | transplant ([facility]) | results section. | + +--------+ + + + | LIPID SET (TRIG, T | Urgent | 08/31/2016 | S/P allogeneic | Results for this | | CHOL, HDL, CALC LDL) | | 9:35 AM | bone marrow | procedure are in the | | | | PST | transplant ([facility]) | results section. | + +--------+ + + + | PROTEIN | Urgent | 08/31/2016 | S/P allogeneic | Results for this | | ELECTROPHORESIS, | | 9:35 AM | bone marrow | procedure are in the | | SERUM, WITH REFLEX | | PST | transplant ([facility]) | results section. | | TO IMMUNOFIXATION | | | | | + +--------+ + + + | MAGNESIUM, PLASMA | Urgent | 08/31/2016 | S/P allogeneic | Results for this | | | | 9:35 AM | bone marrow | procedure are in the | | | | PST | transplant ([facility]) | results section. | + +--------+ + + + documented in this encounter Results CMP, POC (BMP+LFT) (08/31/2016 9:51 AM PST) + +---------+ + + + | Component | Value | Ref Range | Performed | Pathologist | | | | | At | Signature | + +---------+ + + + | SODIUM, POC | 137 | 134 - 143 | [facility] - | | | | | mmol/L | [facility] | | | | | | [facility] | | | | | | OF CARE | | | | | | TESTS | | + +---------+ + + + | POTASSIUM, | 4.2 | 3.4 - 5.0 | [facility] - | | | POC | | mmol/L | [facility] | | | | | [...] +---------+ + + + | GLUCOSE, | 111 (H) | 60 - 99 mg/dL | [facility] - | | | POC | | | [facility] | | | | | | [facility] | | | | | | OF CARE | | | | | | TESTS | | + +---------+ + + + | CALCIUM | 9.2 | 8.6 - 10.2 | [facility] - | | | TOTAL, POC | | mg/dL | [facility] | | | | | [...] + + + | ALK PHOS, | 183 (H) | 41 - 99 U/L | [facility] - | | | CMP POC | | | [facility] | | | | | | [facility] | | | | | | OF CARE | | | | | | TESTS | | + +---------+ + + + | ALT, CMP | 135 (H) | 0 - 60 U/L | [facility] - | | | POC | | | [facility] | | | | | | [facility] | | | | | | OF CARE | | | | | | TESTS | | + +---------+ + + + | AST, CMP | 106 (H) | 0 - 41 U/L | [...] 6.7 | 6.1 - 7.9 g/dL | [facility] [...] + + | [facility] | [address] | [place], [place] | | | [facility] | [facility] | [address] | | | TESTS | | | | + + + + + LYMPHOCYTE ACTIVATION(LYMPH RECONSTITUTION/ACTIVATE)BLOOD (08/31/2016 9:35 AM PST) + + | Specimen | + + | Blood - Blood | | (substance) | + + + + + + + | Performing | Address | City/State/Zipcode | Phone Number | | Organization | | | | + + + + + | [facility] | [address] | [place] [address] | | | SERVICES, SPECIAL | [address] | | | | IMM + COAG | | | | + + + + + CBC AND AUTO DIFF (08/31/2016 9:35 AM PST) + + + + + + | Component | Value | Ref Range | Performed | Pathologist | | | | | At | Signature | + + + + + + | WHITE CELL | 7.43 | 3.50 - 10.80 | [facility] | | | COUNT | | K/cu mm | LABORATORY | | | | | | SERVICES, | | | | | | CORE | | + + + + + + | RED CELL | 4.46 (L) | 4.50 - 6.00 | [facility] | | | COUNT | | M/cu mm | LABORATORY | | | | | | SERVICES, | | | | | | CORE | | + + + + + + | HEMOGLOBIN | 14.1 | 13.5 - 17.5 | [facility] | | | | | g/dL | LABORATORY | | | | | | SERVICES, | | | | | | CORE | | + + + + + + | HEMATOCRIT | 42.1 | 41.0 - 53.0 % | [facility] | | | | | | LABORATORY | | | | | | SERVICES, | | | | | | CORE | | + + + + + + | MCV | 94.4 | 80.0 - 96.0 fL | [facility] | | | | | | LABORATORY | | | | | | SERVICES, | | | | | | CORE | | + + + + + + | MCHC | 33.5 | 33.0 - 35.5 | [facility] | | | | | g/dL | LABORATORY | | | | | | SERVICES, | | | | | | CORE | | + + + + + + | RDW SD | 44.3 | 35.1 - 46.3 fL | [facility] | | | | | | LABORATORY | | | | | | SERVICES, | | | | | | CORE | | + + + + + + | PLATELET | 240 | 150 - 400 K/cu | [facility] | | | COUNT | | mm | LABORATORY | | | | | | SERVICES, | | | | | | CORE | | + + + + + + | MPV | 8.0 (L) | 9.7 - 12.3 fL | [...] + + + + | NEUTROPHIL | 57.6 | 50.0 - 70.0 % | [facility] | | | % | | | LABORATORY | | | | | | SERVICES, | | | | | | CORE | | + + + + + + | LYMPHOCYTE | 19.9 | 18.0 - 42.0 % | [facility] | | | % | | | LABORATORY | | | | | | SERVICES, | | | | | | CORE | | + + + + + + | MONOCYTE % | 9.4 (H) | 3.5 - 9.0 % | [facility] | | | | | | LABORATORY | | | | | | SERVICES, | | | | | | CORE | | + + + + + + | EOS % | 12.2 (H) | 1.0 - 3.0 % | [...] + + + + | IG% | 0.5Comment: Immature | 0.0 - 0.6 % | [...] + + + + | NEUTROPHIL | 4.27 | 1.80 - 7.70 | [facility] | | | # | | K/cu mm | LABORATORY | | | | | | SERVICES, | | | | | | CORE | | + + + + + + | LYMPHOCYTE | 1.48 | 1.00 - 4.80 | [facility] | | | # | | K/cu mm | LABORATORY | | | | | | SERVICES, | | | | | | CORE | | + + + + + + | MONOCYTE # | 0.70 | 0.10 - 0.90 | [facility] | | | | | K/cu mm | LABORATORY | | | | | | SERVICES, | | | | | | CORE | | + + + + + + | EOS # | 0.91 (H) | 0.00 - 0.50 | [facility] | [...] + + + + | IG# | 0.04 (H) | 0.00 - 0.03 | [facility] [...] reference ranges effective May 24, 2016. | [facility] | | Immature Granulocytes (IG) include metamyelocytes, myelocytes and | LABORATORY | | promyelocytes. Bands are not included in the IG count. Bands are | SERVICES, CORE | | included in the neutrophil count. | | + + + + + + + + | Performing | Address | City/State/Zipcode | Phone Number | | Organization | | | | + + + + + | [facility] | [address] | [place] [address] | | | KOLE, INDRA | [address] | | | + + + + + IGG, SERUM (08/31/2016 9:35 AM PST) + +---------+ + + + | Component | Value | Ref Range | Performed | Pathologist | | | | | At | Signature | + +---------+ + + + | IGG SERUM | 647 (L) | 700 - 1600 | [facility] | | | | | mg/dL | [facility] | | | | | | [place] | | + +---------+ + + + + + | Specimen | + + | Blood - Blood | | (substance) | + + + + + + + | Performing | Address | City/State/Zipcode | Phone Number | | Organization | | | | + + + + + | [facility] | [address] | [place] [address] | | | [place] | | | | + + + + + IGM, SERUM (08/31/2016 9:35 AM PST) + +-------+ + + + | Component | Value | Ref Range | Performed | Pathologist | | | | | At | Signature | + +-------+ + + + | IGM SERUM | 68 | 40 - 230 mg/dL | [facility] - | | | | | | [facility] - | | | | | | [place] | | + +-------+ + + + + + | Specimen | + + | Blood - Blood | | (substance) | + + + + + + + | Performing | Address | City/State/Zipcode | Phone Number | | Organization | | | | + + + + + | [facility] | [address] | [place] [address] | | | [place] | | | | + + + + + IGA, SERUM (08/31/2016 9:35 AM PST) + +-------+ + + + | Component | Value | Ref Range | Performed | Pathologist | | | | | At | Signature | + +-------+ + + + | IGA SERUM | 107 | 70 - 400 mg/dL | [facility] | | | | | | [facility] - | | | | | | [place] | | + +-------+ + + + + + | Specimen | + + | Blood - Blood | | (substance) | + + + + + + + | Performing | Address | City/State/Zipcode | Phone Number | | Organization | | | | + + + + + | [facility] | [address] | [place] [address] | | | [place] | | | | + + + + + PROTEIN ELECTROPHORESIS, SERUM, WITH REFLEX TO IMMUNOFIXATION (08/31/2016 9:35 AM PST) + + + + + + | Component | Value | Ref Range | Performed | Pathologist | | | | | At | Signature | + + + + + + | TOTAL | 6.3 (L) | 6.4 - 8.3 gm/dL | [facility] - | | | PROTEIN, | | | [facility] - | | | [facility] - | | | [place] | | | SPEP | | | | | + + + + + + | GAMMA %, | 7.2 | % | [facility] - | | | SPEP | | | [facility] - | | | | | | [place] | | + + + + + + | GAMMA, | 0.45 (L) | 0.50 - 1.50 | [facility] - | | | SERUM - | | gm/dL | [facility] - | | | SPEP | | | [place] | | + + + + + + | BETA % SPEP | 11.3 | % | [facility] | | | | | | [facility] - | | | | | | [place] | | + + + + + + | BETA, SERUM | 0.71 | 0.60 - 1.20 | [facility] | | | - SPEP | | gm/dL | [facility] - | | | | | | [place] | | + + + + + + | ALPHA-2 %, | 12.2 | % | [facility] | | | SPEP | | | [facility] - | | | | | | [place] | | + + + + + + | ALPHA-2, | 0.77 | 0.50 - 0.90 | [facility] - | | | SERUM - | | gm/dL | [facility] - | | | SPEP | | | [place] | | + + + + + + | ALPHA-1 %, | 3.6 | % | [facility] | | | SPEP | | | [facility] - | | | | | | [place] | | + + + + + + | ALPHA-1, | 0.23 | 0.10 - 0.40 | [facility] - | | | SERUM - | | gm/dL | [facility] - | | | SPEP | | | [place] | | + + + + + + | ALBUMIN %, | 65.7 | % | [facility] | | | SPEP | | | [facility] - | | | | | | [place] | | + + + + + + | ALBUMIN,SER | 4.14 | 3.40 - 5.20 | [facility] - | | | UM - SPEP | | gm/dL | [facility] - | | | | | | [place] | | + + + + + + | SPEP | Gamma Globulin Low. 75% | | [facility] - | | | COMMENTS | of the normal Gamma | | [facility] - | | | | Globulin peak is IgG. | | [place] | | | | Therefore, | | | | | | electrophoresis is | | | | | | sensitive only to a | | | | | | lowering of this | | | | | | component. Most | | | | | | Hypogammglobulinemias | | | | | | are secondary, due to | | | | | | such problems as Bone | | | | | | Marrow Hypoplasia, | | | | | | metastatic Tumor, | | | | | | nephrosis, malnutrition, | | | | | | high dosage steroid | | | | | | therapy and protein | | | | | | losing enteropathies. | | | | | | Low Globulin levels may | | | | | | be seen in [place] | | | | | | Chain Disease.Comment: | | | | | | Interpretation By: Hao | | | | | | Smiley LAU - Pathology | | | | + + + + + + + + | Specimen | + + | Blood - Blood | | (substance) | + + + + + + + | Performing | Address | City/State/Zipcode | Phone Number | | Organization | | | | + + + + + | [facility] | [address] | [place] [address] | | | [facility] | | | | + + + + + VITAMIN D, 25-HYDROXY, SERUM (08/31/2016 9:35 AM PST) + +---------+ + + + | Component | Value | Ref Range | Performed | Pathologist | | | | | At | Signature | + +---------+ + + + | VITAMIN D | 8.4 (L) | 30 - 80 ng/mL | [facility] | | | 25 HYDROXY | | | LABORATORY | | | | | | SERVICES, | | | | | | CORE | | + +---------+ + + + + + | Specimen | + + | Blood - Blood | | (substance) | + + + + + | Narrative | Performed At | + + + | Reference Interval: 0-18years: Deficiency: <20 ng/mL | [facility] | | Optimum level: >or=20 ng/mL | LABORATORY | | >18years: Deficiency: <20 | SERVICES, CORE | | ng/mL Insufficiency: 20-29 ng/mL | | | Optimum Level: 30-80 ng/mL High: | | | 81-150 ng/ml Toxic: >150 ng/mL | | + + + + + + + + | Performing | Address | City/State/Zipcode | Phone Number | | Organization | | | | + + + + + | [facility] | [address] | [place] [address] | | | SERVICES, CORE | [address] | | | + + + + + TSH W/REFLEX TO FREE T4(IF ABNORMAL) (08/31/2016 9:35 AM PST) + +-------+ + + + | Component | Value | Ref Range | Performed | Pathologist | | | | | At | Signature | + +-------+ + + + | TSH | 2.40 | 0.40 - 3.98 | [facility] | | | | | mIU/L | LABORATORY | | | | | | SERVICES, | | | | | | CORE | | + +-------+ + + + + + | Specimen | + + | Blood - Blood | | (substance) | + + + + + | Narrative | Performed At | + + + | TSH reference ranges are influenced by a variety of environmental | [facility] | | influences, age, gender and ethnicity. The supplied reference limits | LABORATORY | | are based on published values utilizing a similar TSH assay, and | SERVICES, CORE | | should be interpreted with caution. | | + + + + + + + + | Performing | Address | City/State/Zipcode | Phone Number | | Organization | | | | + + + + + | [facility] | [address] | [place] [address] | | | SERVICES, CORE | [address] | | | + + + + + LIPID SET (TRIG, T CHOL, HDL, CALC LDL) (08/31/2016 9:35 AM PST) + +---------+ + + + | Component | Value | Ref Range | Performed | Pathologist | | | | | At | Signature | + +---------+ + + + | CHOLESTEROL | 253 (H) | <200 mg/dL | [facility] | | | (LAB) | | | LABORATORY | | | | | | SERVICES, | | | | | | CORE | | + +---------+ + + + | TRIGLYCERID | 226 (H) | <150 mg/dL | [facility] | | | ES | | | LABORATORY | | | | | | SERVICES, | | | | | | CORE | | + +---------+ + + + | HDL | 38 (L) | >40 mg/dL | [facility] | | | CHOLESTEROL | | | LABORATORY | | | | | | SERVICES, | | | | | | CORE | | + +---------+ + + + | HDL CMNT | No Hemo | | [facility] | | | | | | LABORATORY | | | | | | SERVICES, | | | | | | CORE | | + +---------+ + + + | LDL | 170 (H) | <100 mg/dL | [facility] | | | CHOLESTEROL | | | LABORATORY | | | , | | | SERVICES, | | | CALCULATED | | | CORE | | + +---------+ + + + | VLDL | 45 (H) | <31 mg/dL | [facility] | | | CHOLESTEROL | | | LABORATORY | | | , | | | SERVICES, | | | CALCULATED | | | CORE | | + +---------+ + + + | NON-HDL | 215 (H) | <130 mg/dL | [facility] | | | CHOLESTEROL | | | LABORATORY | | | | | | SERVICES, | | | | | | CORE | | + +---------+ + + + + + | Specimen | + + | Blood - Blood | | (substance) | + + + + + | Narrative | Performed At | + + + | Cholesterol Reference Range: Desirable: <200 | [facility] | | mg/dL Borderline High: 200 - 239 mg/dL | LABORATORY | | High: >=240 mg/dL LDL Cholesterol | SERVICES, CORE | | Reference Range: Optimal: <100 mg/dL | | | Near Optimal: 100-129 mg/dL Borderline High: 130-159 | | | mg/dL High: 160-189 mg/dL | | | Very High: >=190 mg/dL non-HDL Cholesterol Reference Range: | | | Optimal: <130 mg/dL Near Optimal: | | | 130-159 mg/dL Borderline High: 160-189 mg/dL | | | High: 190-209 mg/dL Very High: | | | >=210 mg/dL Triglyceride Reference Range: | | | Normal: <150 mg/dL Borderline High: 150-199 mg/dL | | | High: 200-499 mg/dL Very High: >=500 mg/dL | | | HDL Reference Range: High Risk: <40 mg/dL | | | Desirable: >=60 mg/dL | | + + + + + + + + | Performing | Address | City/State/Zipcode | Phone Number | | Organization | | | | + + + + + | [facility] | [address] | [place] [address] | | | SERVICES, CORE | [address] | | | + + + + + TESTOSTERONE, SERUM (08/31/2016 9:35 AM PST) + + + + + + | Component | Value | Ref Range | Performed | Pathologist | | | | | At | Signature | + + + + + + | TESTOSTERON | 779Comment: Total | 300 - 1080 | [facility] | | | E, ADULT | testosterone values may | ng/dL | REG UNIV | | | MALE | not reflect optimal | | PTH - [facility] | | | | concentrations in all | | | | | | individuals. Free or | | | | | | bioavailable | | | | | | testosterone | | | | | | measurements may provide | | | | | | supportive | | | | | | information.REFERENCE | | | | | | INTERVAL: Testosterone, | | | | | | Adult Male Access | | | | | | complete set of age- | | | | | | and/or gender-specific | | | | | | reference intervals for | | | | | | this test in the [facility] | | | | | | Laboratory Test | | | | | | Directory | | | | | | ([facility]).Performed | | | | | | by [facility],[address] | | | | | | [address], [facility] [place] | | | | | | [id number] | | | | | | [phone].[facility]. | | | | | | [facility], Abhishek Drew MD, | | | | | | Lab. Director | | | | + + + + + + + + | Specimen | + + | Blood - Blood | | (substance) | + + + + + + + | Performing | Address | City/State/Zipcode | Phone Number | | Organization | | | | + + + + + | [facility] | [address] | [place], [place] | | | UNIV PTH - INT | | [address] | | + + + + + FERRITIN (08/31/2016 9:35 AM PST) + + + + + + | Component | Value | Ref Range | Performed | Pathologist | | | | | At | Signature | + + + + + + | FERRITIN | 2,126 (H)Comment: Male | 50 - 200 ng/mL | [facility] | | | | and Female >18 years: | | LABORATORY | | | | <20 ng/mL: | | SERVICES, | | | | Consistant with iron | | CORE | | | | deficiency 21-50 | | | | | | ng/mL: Possible | | | | | | iron deficiency 51-99 | | | | | | ng/mL: Iron | | | | | | deficiency unlikely | | | | | | unless inflammation | | | | | | present or | | | | | | patient | | | | | | >65 years of age | | | | | | 100-200 ng/mL: | | | | | | Normal, not consistent | | | | | | with iron deficiency | | | | | | >200 ng/mL: If | | | | | | transferrin saturation | | | | | | >45%, consider | | | | | | hemochromatosis | | | | + + + + + + + + | Specimen | + + | Blood - Blood | | (substance) | + + + + + + + | Performing | Address | City/State/Zipcode | Phone Number | | Organization | | | | + + + + + | [facility] | [phone] | [place] [address] | | | [facility] | [address] | | | + + + + + MAGNESIUM, PLASMA (08/31/2016 9:35 AM PST) + +-------+ + + + | Component | Value | Ref Range | Performed | Pathologist | | | | | At | Signature | + +-------+ + + + | MAGNESIUM,P | 2.1 | 1.8 - 2.5 mg/dL | [facility] [...] + + + + + | [facility] | [phone] | [place] [address] | | | SERVICES, [facility] | [address] | | | + + + + + documented in this encounter Visit Diagnoses + + | Diagnosis | + + | 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HCC) Bone marrow replaced by transplant | + + documented in this encounter Administered Medications + +---------+ +------+------+------+ | Medication Order | MAR | Action | Dose | Rate | Site | | | Action | Date | | | | + +---------+ +------+------+------+ | morphine injection 4 mg 4 mg, | IV Push | 08/31/19 | 4 mg | | | | intravenous, ONCE, 1 dose, Lupe | | 17 10:00 | | | | | 08/31/16 at 1000 | | AM PST | | | | + +---------+ +------+------+------+ +---+---+ | | | +---+---+ + +---------+ +------+---+---+ | ondansetron (ZOFRAN) injection | IV Push | 08/31/19 | 4 mg | | | | 4 mg 4 mg, intravenous, ONCE, 1 | | 17 10:11 | | | | | dose, Lpue 08/31/16 at 1015 | | AM PST | | | | + +---------+ +------+---+---+ + +---+ | | | + +---+ | ondansetron (ZOFRAN) injection | | | 1 dose, Starting Lupe 08/31/16 at | | | 1008, Until Lupe 08/31/16 at 1011 | | + +---+ | | | + +---+ documented in this encounter"
--- OUTSIDE RECORDS SUMMARY | ~2019-05-17 | XMS | Encounter Summary ---
Demographics + + + | Address | [address] | | | [place] [address] | + + + | Home Phone | | + + + | Preferred Language | Unknown | + + + | Marital Status | | + + + | Yarsani Affiliation | SPI | + + + [...] Team Providers + +------+ + | Care Docent Coordinator Name | Role | Phone | + [...] | | | | | | [place], | | | | | | | [place] | | | | | | | [address] | | | | | | | Phone: | | | | | | | [phone] | | | | | | | Fax: | | | | | | | [phone] | +--------+--------+ + + + + Encounter Details +--------+---------+ + + + | Date | Type | Department | Care Team | Description | +--------+---------+ + + + | 12/22/ | Office | Center for | Aspen Cummins FNP | S/P allogeneic bone | | 2016 | Visit | Hematologic | [address] | marrow transplant | | | | Malignancies at | [address] | (HCC) (Primary Dx) | | | | [facility] | [place], [place] | | | | | [address] | [address] | | | | | Debi Burger Mailcode: | [phone] | | | | | [id number] [facility] | | | | | | [place], | | | | | | [place] [address] | | | | | | [phone] | | | +--------+---------+ + + + [...] + + + | Blood Pressure | 133/85 | 12/23/2015 9:58 AM | | | | | PDT | | + + + + + | Pulse | 74 | 12/23/2015 9:37 AM | | | | | PDT | | + + + + + | Temperature | 36.9 C (98.4 F) | 12/23/2015 9:37 AM | | | | | PDT | | + + + + + | Respiratory Rate | 18 | 12/23/2015 9:37 AM | | | | | PDT | | + + + + + | Oxygen Saturation | 100% | 12/23/2015 9:37 AM | | | | | PDT | | + + + + + | Inhaled Oxygen | - | - | | | Concentration | | | | + + + + + | Weight | 85.9 kg (189 lb 6 | 12/23/2015 9:37 AM | | | | oz) | PDT | | + + + + + | Height | - | - | | + + + + + | Body Mass Index | 24.48 | 08/18/2015 4:35 PM | | | | | PST | | + + + + + documented in this encounter Patient Instructions Patient Instructions Aspen Cummins FNP - 12/23/2015 10:44 AM PDT1. Decrease tacrolimus to 0.5 mg by mouth twice daily 2. Continue to eat well, remain active 3. Beware of sun exposure as this can cause bllpr-[id number]-rusr disease. Wear a hat, sungla sses, and sunscreen or long sleeves when outside. 4. Return to clinic on 12/27/15 to begin your next cycle of azacitidine. 5. You're scheduled to follow up with Yari Garcia MD on , 12/30/15 or sooner as zaki shin. 6. Please check out with our schedulers to verify the appointment change from 01/09 to 6. documented in this encounter Progress Notes Aspen Cummins FNP - 12/23/2015 7:18 AM PDT 12/23/2015 [facility] MD: Yari Garcia MD Primary Oncologist: Yari Garcia MD Diagnosis: AMML, primary refractory Transplant Date: 08/27/15 Donor: MM URD (DPB1 permissive antigen mismatch, male, [id number]) Identifying Data: Khurram Kelly is a 25 [...] his L ankle. He was evaluated at [facility] ED on 06/[address] angiogram negative [...] acute myelomonocytic leukemia. He was referred to [facility] for further evaluation and man agement of his newly dx'd AML. Pt was admitted to [facility] on 05/26/15. Peripheral blood was sent [...] CD34, variable CD56, variable CD117, and dim [id number] mickey; promonocyte immunophenotype (70% by flow): CD11b, [...] showed a hypocellular (5%) marrow with ne renaat absent hematopoiesis with 60% blast/promonocytes. Blast immunophenotype [...] durin g taper. He is currently day +118 s/p transplant, day 25, c2 of azacitidine and returns to clinic to day for scheduled follow-up. Interim History: Khurram was most recently evaluated in [facility] by me on 12/16/15. Feeling well today. Mild intermittent nausea persists, comes in waves that last a few minutes. Typically lies down until it passes. Has not been taking antiemetics, would prefer not to. Appetite is good, feels he's eating and drinking well. Remains active. Played 9 holes of golf earlier this week. [place] well while he was playing bu t sore afterwards. Skin rash continues to improve. Review of Systems Constitutional: Negative for fever, chills and malaise/fatigue. HENT: Negative for headaches, congestion and sore throat. Respiratory: Negative for cough and shortness of breath. Cardiovascular: Negative for chest pain and leg swelling. Gastrointestinal: Negative for nausea, vomiting, abdominal pain and diarrhea. Genitourinary: Negative for dysuria. Musculoskeletal: Negative for myalgias and joint pain. Skin: Positive for rash (fading, no longer red). Neurological: Negative for dizziness, tremors and weakness. All other systems reviewed and are negative. Current Outpatient Prescriptions Medication Sig acyclovir 800 mg oral tablet Take 800 mg by mouth two times daily. ALPRAZolam 0.5 mg oral tablet Take 2 tablets by mouth three times daily as needed for a nxiety. amLODIPine 5 mg oral tablet Take one-half tablet by mouth once daily. beclomethasone 1 mg/mL oral suspension (compound) Take 1 mL by mouth four times daily. budesonide 3 mg oral capsule,delayed,extend.release Take 1 capsule by mouth three times daily. magnesium oxide-mg amino acid chelate 133 mg oral tablet Take 3 tablets by mouth two ti mes daily. OLANZapine (ZYPREXA) 10 mg oral tablet Take 1 tablet by mouth once daily at bedtime. omeprazole 20 mg oral capsule,delayed release(DR/EC) Take 1 capsule by mouth before babak akfast. ondansetron 4 mg oral tablet Take 1 to 2 tablets by mouth every twelve hours as needed for nausea/vomiting. oxyCODONE, immediate release, 5 mg oral tablet Take 1 to 2 tablets by mouth every six h ours as needed. posaconazole DR 100 mg oral tablet,delayed release (DR/EC) Take 3 tablets by mouth once daily. predniSONE 10 mg oral tablet Take 10 mg (one tablet) by mouth once daily senna-docusate 8.6-50 mg oral tablet Take 1 tablet by mouth twice daily as needed. tacrolimus 0.5 mg oral capsule 0.5 mg by mouth twice daily No current facility-administered medications for this visit. Allergies Allergen Reactions Chlorhexidine Towelette Rash PAVAN cloths - ok to use Chloraprep for dresssing change per pt. Filed Vitals: 12/23/2015 9:37 AM 12/23/2015 9:58 AM Weight: 85.9 kg (189 lb 6 oz) BP: 140/100 133/85 Pulse: 74 Temp: 36.9 C (98.4 F) TempSrc: Oral Resp: 18 SpO2: 100% PainSc: 0 - Zero BMI: 24.49 kg/(m^2) Physical Exam Constitutional: He is well-developed, well-nourished, and in no distress. HENT: Head: Normocephalic and atraumatic. Mouth/Throat: Oropharynx [...] alert. Skin: Skin is warm and dry. Rash (faint hyperpigmented macular rash to BUE, no other rash n oted, no new lesions) noted. Psychiatric: Mood and affect normal. Vitals reviewed. CVC: Trifusion intact to R ant chest wall without erythema, induration Lab Results Component Value Date WBC 6.7 12/23/2015 HB 13.6 12/23/2015 HCT 38.4 12/23/2015 PLT 64 12/23/2015 MCV 101.6 12/23/2015 RDW 60.3 11/22/2015 Lab Results Component Value Date BICARB 26 12/23/2015 TBILI 0.3 12/23/2015 CA 9.8 12/23/2015 CL 105 12/23/2015 CR 0.7 12/23/2015 GLU 117* 12/23/2015 AP 62 12/23/2015 TP 7.1 12/23/2015 BUN 11 12/23/2015 ALB 4.0 12/23/2015 AST 53* 12/23/2015 NA 139 12/23/2015 K 3.6 12/23/2015 ALT 123* 12/23/2015 Assessment/Plan: 1. 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 His most recent marrow studies comple edward 11/22/15 showed a hypocellular marrow (patchy 15%) with trilineage hematopoiesis and no m orphologic and immunologic evidence of acute leukemia.Karyotype 46,XY[19]. VNTR showed no de tectable host cells. 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 He began maintenance azacitidine on 11/01/15, currently c2, day 25 . Peripheral blood counts recovering post-chemo; no blood products are required today. --> continue CBC q week --> c3 azacitidine scheduled to begin 12/27/15 [32 mg/m2 IV daily x 5 days] 2. 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 Rash progressed to ~56% BSA at worst on 09/15/15; pred nisone 1 mg/kg was initiated. He initially responded but flared during taper. He also develo ped low-level nausea and abd discomfort concerning for GvHD, empirically treated with oral n on-absorbables with resolution. He has since been able to taper prednisone to 10 mg po daily and began a tacrolimus taper on 12/16/15. No s/s active GvHD noted at this time. --> continue tacrolimus taper; decrease to 0.5 mg po BID --> continue oral non-absorbables --> continue prednisone 10 mg po daily until tacrolimus tapered off 3. Infectious Disease: Afebrile without localizing s/s infection. He continues prophylactic posaconazole, acyclovir and bactrim. Completed a treatment course of valganciclovir for CMV reactivation on 12/16/15. His most recent CMV PCR on 12/13/15 remains undetected. His most rec ent serum IgG level on 12/13/15 was adequate at 514. Immune reconstitution panel collected 11/06 12/22 showed normal total T cells with increased CD8+ T cell subsets, normal total NK cells, decreased B cells with decreased margarita B cells and minimal immune activation with CD4 count 385. Post transplant vaccines currently on hold due to azacitidine maintenance therapy. --> continue current antimicrobials --> due to CMV reactivation prior to day +100, monitor PCRs weekly through day +180, then q oweek through day +270 Lab Results Component Value Date CMVQUANTPCR Undetected 12/13/2015 CMVQUANTPCR Undetected 12/07/2015 CMVQUANTPCR Undetected 11/22/2015 CMVQUANTPCR Weak Positive* 11/15/2015 4. Fluid, Electrolyte and Nutrition: Intermittent nausea continues after azacitidine, impro ving over time. Has not been taking antiemetics; typically waits it out with relief. Eating well with adequate po fluid intake. His electrolytes are reviewed and are within acceptable limits. --> continue a well balanced diet --> maintain hydration --> continue po Mg+Pro supplements as prescribed; hold for loose stools 5. Cardiovascular: Pretransplant TTE completed 08/10/15 showed a LVEF of 55-60%. CNI-induced HTN; generally well controlled with current meds. --> no change in meds indicated today --> anticipate HTN will improve as tacrolimus tapers 6. Follow up --> scheduled to begin c3 of azacitidine on 12/27/15 with daily dosing x 5 days --> RTC to f/u with Yari Garcia MD on , 12/30/15, sooner prn --> of note, pt and planning to travel to [place] 01/05-01/10/16 [facility] [address] Mailcode: [id number] [place] [address] documented in this enc ounter [...] | 2019 | Visit | Malignancy | [address] [place] [address] | | | | | | [facility] | | | | | | [place], [place] | | | | | | [address] | | | | | | [phone] | | | | | | | | +--------+---------+ + + + documented as of this encounter Visit Diagnoses + + | Diagnosis | + + | 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
--- OUTSIDE RECORDS SUMMARY | ~2019-05-17 | XMS | Encounter Summary ---
Demographics + + + | Address | [address] | | | [place] [address] | + + + | Home Phone | | + + + | Preferred Language | Unknown | + + + | Marital Status | | + + + | Christianity Affiliation | SPI | + + + | Race | White | + + + | Ethnic Group | Not or | + + + Author + + + | Author | [facility] | + + + | Organization | [facility] | + + + | Address | Unknown | + + + | Phone | Unavailable | + + + Support + + +---------+ + | Name | Relationship | Address | Phone | + + +---------+ + | Gabriel Kelly | ECON | Unknown | | + + +---------+ + Care Team Providers + +------+ + | Care Charter Boat Operator Name | Role | Phone | [...] Description | +--------+--------+ + + + | 05/15/ | Refill | Center for | Aspen Cummins FNP | Refill Request | | 2016 | | Hematologic | [address] | | | | Malignancies at | [address] | | | | | [facility] | [place], [place] | | | | | [address] | [address] | | | | | Debi Burger Mailcode: | [phone] | | | | | [id number] | | | | | | [place], | | | | | | [place] [address] | | | | | | [phone] | | | +--------+--------+ + + + [...] | Visit | Malignancy | [address] | | | | | | [address] | | | | | | [place] | | | | | | [address] | | | | | | [phone] | | | | | | | | +--------+---------+ + + + documented as of this encounter Visit Diagnoses Not on filedocumented in this encounter"
--- OUTSIDE RECORDS SUMMARY | ~2019-05-17 | XMS | Encounter Summary ---
Demographics + + + | Address | [address] | | | [place] [address] | + + + | Home Phone | | + + + | Preferred Language | Unknown | + + + | Marital Status | | + + + | Episcopalian Affiliation | SPI | + + + | Race | White | + + + | Ethnic Group | Not or | + + + Author + + + | Author | [facility] | + + + | Organization | [facility] | + + + | Address | Unknown | + + + | Phone | Unavailable | + + + Support + + +---------+ + | Name | Relationship | Address | Phone | + + +---------+ + | Gabriel Kelly | ECON | Unknown | | + + +---------+ + Care Team Providers + +------+ + | Care Dust Collector Ore [place] Name | Role | Phone | + +------+ + | Zayda Hinton | PCP | | + +------+ + Encounter Details +--------+ + + + + | Date | Type | Department | Care Team | Description | +--------+ + + + + | 10/18/ | Pharmacy | Specialty Pharmacy | | | | 2016 | Visit | Services [address] | | | | | [address] | | | | | | [place], [place] | | | | | | [address] | | | | | | [phone] | | | +--------+ + + + [...] 2019 | Visit | Malignancy | [address] | | | | | | [address] | | | | | | [place], [place] | | | | | | [address] | | | | | | [phone] | | | | | | | | +--------+---------+ + + + documented as of this encounter Visit Diagnoses Not on filedocumented in this encounter"
--- OUTSIDE RECORDS SUMMARY | ~2019-05-17 | XMS | Encounter Summary ---
Demographics + + + | Address | [address] | | | [place] [address] | + + + | Home Phone | | + + + | Preferred Language | Unknown | + + + | Marital Status | | + + + | Tenriism Affiliation | SPI | + + + | Race | White | + + + | Ethnic Group | Not or | + + + Author + + + | Author | [facility] | + + + | Organization | [facility] | + + + | Address | Unknown | + + + | Phone | Unavailable | + + + Support + + +---------+ + | Name | Relationship | Address | Phone | + + +---------+ + | Gabriel Kelly | ECON | Unknown | | + + +---------+ + Care Team Providers + +------+ + | Care Conveyor Belt Installer Name | Role | Phone | + +------+ + | Zayda Hinton | PCP | | + +------+ + Encounter Details +--------+ + + + + | Date | Type | Department | Care Team | Description | +--------+ + + + + | 07/15/ | Pharmacy | Specialty Pharmacy | | | | 2015 | Visit | Services [address] | | | | | | [address] | | | | | | [place], [place] | | | | | | [address] | | | | | | [phone] | | | +--------+ + + + [...] [place] | | | | | | [address] | | | | | | [phone] | | | | | | | | +--------+---------+ + + + documented as of this encounter Visit Diagnoses Not on filedocumented in this encounter"
--- OUTSIDE RECORDS SUMMARY | ~2019-05-17 | XMS | Encounter Summary ---
Demographics + + + | Address | [address] | | | [place] [address] | + + + | Home Phone | | + + + | Preferred Language | Unknown | + + + | Marital Status | | + + + | Mandaeism Affiliation | SPI | + + + | Race | White | + + + | Ethnic Group | Not or | + + + Author + + + | Author | [facility] | + + + | Organization | [facility] | + + + | Address | Unknown | + + + | Phone | Unavailable | + + + Support + + +---------+ + | Name | Relationship | Address | Phone | + + +---------+ + | Gabriel Kelly | ECON | Unknown | | + + +---------+ + Care Team Providers + +------+ + | Care Freight Engineer Name | Role | Phone | + +------+ + | Zayda Hinton | PCP | | + +------+ + Reason for Visit + + + | Reason | Comments | + + + | Lab Draw | | + + + Encounter Details +--------+ + + + + | Date | Type | Department | Care Team | Description | +--------+ + + + + | 07/19/ | Diagnostic | [facility] for | | Lab Draw | | 2018 | Visit | Hematologic | | | | | | Malignancies at | | | | | | [facility] | | | | | | [address] | | | | | | [place] Mailcode: | | | | | | [id number] | | | | | | [place], | | | | | | [place] [address] | | | | | | [phone] | | | +--------+ + + + [...] + documented as of this encounter Progress Lincoln Austin - 07/19/2017 9:15 AM PSTLeft AC accessed with a 23 gauge butterfly needle. Labs drawn and sent. Tolerated procedure well. Site dressed with sterile gauze and Coban. Patient scheduled for provider visit today with Aspen VILLALBA. Lincoln Hermosillo MA documented in this encount er Plan of Treatment +--------+---------+ + + + | Date | Type | Specialty | Care Team | Description | +--------+---------+ + + + | 05/19/ | Lab | Phlebotomy | | | | 2019 | | | | | +--------+---------+ + + + | 05/19/ | Office | Hematology | Yari Garcia MD | | | 2019 | Visit | Malignancy | [address] | | | | | | [address] | | | | | | [place], [place] | | | | | | [address] | | | | | | [phone] | | | | | | | | +--------+---------+ + + + documented as of this encounter Procedures + +--------+ + + + | Procedure Name | Priori | Date/Time | Associated Diagnosis | Comments | | | ty | | | | + +--------+ + + + | CMP, POC (BMP+LFT) | Routin | 07/19/2017 | S/P allogeneic | Results for this | | | e | 9:41 AM | bone marrow | procedure are in the | | | | PST | transplant (HCC) | results section. | + +--------+ + + + | LYMPHOCYTE | Routin | 07/19/2017 | S/P allogeneic | | | ACTIVATION(LYMPH | e | 9:24 AM | bone marrow | | | RECONSTITUTION/ACTIV | | PST | transplant ([facility]) | | | ATE)BLOOD | | | | | + +--------+ + + + | RBC MORPHOLOGY | Routin | 07/19/2017 | S/P allogeneic | Results for this | | | e | 9:24 AM | bone marrow | procedure are in the | | | | PST | transplant ([facility]) | results section. | + +--------+ + + + | CBC AND AUTO DIFF | Urgent | 07/19/2017 | S/P allogeneic | Results for this | | | | 9:24 AM | bone marrow | procedure are in the | | | | PST | transplant ([facility]) | results section. | + +--------+ + + + | MANUAL DIFFERENTIAL | Routin | 07/19/2017 | S/P allogeneic | Results for this | | | e | 9:24 AM | bone marrow | procedure are in the | | | | PST | transplant ([facility]) | results section. | + +--------+ + + + | LYMPHOCYTE | Routin | 07/19/2017 | S/P allogeneic | Results for this | | ACTIVATION(LYMPH | e | 9:24 AM | bone marrow | procedure are in the | | RECONSTITUTION/ACTIV | | PST | transplant ([facility]) | results section. | | ATE),BLOOD | | | | | + +--------+ + + + | CBC, WITH | Urgent | 07/19/2017 | S/P allogeneic | Results for this | | DIFFERENTIAL | | 9:24 AM | bone marrow | procedure are in the | | | | PST | transplant ([facility]) | results section. | + +--------+ + + + | VITAMIN D, | Routin | 07/19/2017 | S/P allogeneic | Results for this | | 25-HYDROXY, SERUM | e | 9:24 AM | bone marrow | procedure are in the | | | | PST | transplant ([facility]) | results section. | + +--------+ + + + | IGG, SERUM | Routin | 07/19/2017 | S/P allogeneic | Results for this | | | e | 9:24 AM | bone marrow | procedure are in the | | | | PST | transplant ([facility]) | results section. | + +--------+ + + + | FERRITIN | Routin | 07/19/2017 | S/P allogeneic | Results for this | | | e | 9:24 AM | bone marrow | procedure are in the | | | | PST | transplant ([facility]) | results section. | + +--------+ + + + | TSH | Routin | 07/19/2017 | S/P allogeneic | Results for this | | | e | 9:24 AM | bone marrow | procedure are in the | | | | PST | transplant ([facility]) | results section. | + +--------+ + + + | HEPATITIS B CORE AB, | Routin | 07/19/2017 | S/P allogeneic | Results for this | | SERUM | e | 9:24 AM | bone marrow | procedure are in the | | | | PST | transplant (HCC) | results section. | + +--------+ + + + | MAGNESIUM, PLASMA | Routin | 07/19/2017 | S/P allogeneic | Results for this | | | e | 9:24 AM | bone marrow | procedure are in the | | | | PST | transplant (HCC) | results section. | + +--------+ + + + documented in this encounter Results CMP, POC (BMP+LFT) (07/19/2017 9:41 AM PST) + +---------+ + + + | Component | Value | Ref Range | Performed | Pathologist | | | | | At | Signature | + +---------+ + + + | SODIUM, POC | 136 | 134 - 143 | [facility] - [...] + + + | TOTAL CO2, | 26 | 22 - 29 mmol/L | [facility] [...] +---------+ + + + | GLUCOSE, | 113 (H) | 70 - 99 mg/dL | [...] + + + | BUN, POC | 10 | 6 - 20 mg/dL | [facility] [...] + + + | ALK PHOS, | 68 | 41 - 99 U/L | [facility] - | | | CMP POC | | | [facility] | | | | | | [facility] | | | | | | OF CARE | | | | | | TESTS | | + +---------+ + + + | ALT, CMP | 37 | 0 - 60 U/L | [facility] - | | | POC | | | [facility] | | | | | | [facility] | | | | | | OF CARE | | | | | | TESTS | | + +---------+ + + + | AST, CMP | 45 (H) | 0 - 41 U/L | [facility] - | | | POC | | | [facility] | | | | | | [facility] | | | | | | OF CARE | | | | | | TESTS | | + +---------+ + + + | BILIRUBIN | 0.8 | 0.3 - 1.2 mg/dL | [facility] - | | | TOTAL, CMP | | | [facility] | | | POC | | | [facility] | | | | | | OF CARE | | | | | | TESTS | | + +---------+ + + + | ALBUMIN, | 4.3 | 3.5 - 4.7 g/dL | [facility] - | | | CMP POC | | | [facility] | | | | | | [facility], POINT | | | | | | OF CARE | | | | | | TESTS | | + +---------+ + + + | PROTEIN | 7.2 | 6.1 - 7.9 g/dL | [facility] [...] - [facility] | [address] | [place], [place] | | | [place] [facility] | [address] | [address] | | | TESTS | | | | + + + + + RBC MORPHOLOGY (07/19/2017 9:24 AM PST) + + + + + + | Component | Value | Ref Range | Performed | Pathologist | | | | | At | Signature | + + + + + + | ANISOCYTOSI | 1+(10-25cells/HPF) | | [facility] | | | S | | | LABORATORY | | | | | | SERVICES, | | | | | | CORE | | + + + + + + | MACROCYTOSI | 1+(10-25cells/HPF) | | [facility] | | | S | | | LABORATORY | | | [...] | + + + + + | [facility] | [address] | [place] [address] | | | SERVICES, CORE | [address] | | | + + + + + MANUAL DIFFERENTIAL (07/19/2017 9:24 AM PST) + + + + + + | Component | Value | Ref Range | Performed | Pathologist | | | | | At | Signature | + + + + + + | NEUTROPHIL | 80.0 (H) | 50.0 - 70.0 % | [facility] | | | % | | | LABORATORY | | | | | | SERVICES, | | | | | | CORE | | + + + + + + | LYMPHOCYTE | 13.9 (L) | 18.0 - 42.0 % | [facility] | | | % | | | LABORATORY | | | | | | SERVICES, | | | | | | CORE | | + + + + + + | MONOCYTE % | 4.3 | 3.5 - 9.0 % | [facility] | | | | | | LABORATORY | | | | | | SERVICES, | | | | | | CORE | | + + + + + + | EOSINOPHIL | 0.9 (L) | 1.0 - 3.0 % | [facility] | | | % | | | LABORATORY | | | | | | SERVICES, | | | | | | CORE | | + + + + + + | BASOPHIL % | 0.0 | 0.0 - 2.0 % | [facility] | | | | | | LABORATORY | | | | | | SERVICES, | | | | | | CORE | | + + + + + + | IG% | 0.0Comment: Immature | 0.0 - 0.6 % | [facility] | | | | Granulocytes (IG) | | LABORATORY | | | | include metamyelocytes, | | SERVICES, | | | | myelocytes and | | CORE | | | | promyelocytes. Bands are | | | | | | not included in the IG | | | | | | count. Bands are | | | | | | included in the | | | | | | neutrophil count. | | | | + + + + + + | REACTIVE | 0.9Comment: Fewer than | 0.0 - 10.0 % | [facility] | | | LYMPHS % | 10% Reactive Lymphs | | LABORATORY | | | | noted on scan. | | SERVICES, | | | | | | CORE | | + + + + + + | NEUTROPHIL | 10.32 (H) | 1.80 - 7.70 | [facility] | | | # | | K/cu mm | LABORATORY | | | | | | SERVICES, | | | | | | CORE | | + + + + + + | LYMPHOCYTE | 1.79 | 1.00 - 4.80 | [facility] | | | # | | K/cu mm | LABORATORY | | | | | | SERVICES, | | | | | | CORE | | + + + + + + | MONOCYTE # | 0.55 | 0.10 - 0.90 | [facility] | | | | | K/cu mm | LABORATORY | | | | | | SERVICES, | | | | | | CORE | | + + + + + + | EOSINOPHIL | 0.12 | 0.00 - 0.50 | [facility] | | | # | | K/cu mm | LABORATORY | | | | | | SERVICES, | | | | | | CORE | | + + + + + + | BASOPHIL # | 0.00 | 0.00 - 0.10 | [facility] | | | | | K/cu mm | LABORATORY | | | | | | SERVICES, | | | | | | CORE | | + + + + + + | IG# | 0.00 | 0.00 - 0.03 | [facility] | | | | | K/cu mm | LABORATORY | | | | | | SERVICES, | | | | | | CORE | | + + + + + + | REACTIVE | 0.12 | K/cu mm | [facility] | | | LYMPHS # | | | LABORATORY | | | [...] | included in the neutrophil count. | SERVICES, CORE | + + + + + + + + | Performing | Address | City/State/Zipcode | Phone Number | | Organization | | | | + + + + + | [facility] | [address] | [place] [address] | | | SERVICES, CORE | [address] | | | + + + + + LYMPHOCYTE ACTIVATION(LYMPH RECONSTITUTION/ACTIVATE)BLOOD (07/19/2017 9:24 AM PST) + + | Specimen | + + | Blood - Blood | | (substance) | + + + + + + + | Performing | Address | City/State/Zipcode | Phone Number | | Organization | | | | + + + + + | [facility] | [address] | [place] [address] | | | SERVICES, SPECIAL | [address] | | | | IMM + COAG | | | | + + + + + CBC AND AUTO DIFF (07/19/2017 9:24 AM PST) + + + + + + | Component | Value | Ref Range | Performed | Pathologist | | | | | At | Signature | + + + + + + | WHITE CELL | 12.90 (H) | 3.50 - 10.80 | [facility] | | | COUNT | | K/cu mm | LABORATORY | | | | | | SERVICES, | | | | | | CORE | | + + + + + + | RED CELL | 4.41 (L) | 4.50 - 6.00 | [facility] | | | COUNT | | M/cu mm | LABORATORY | | | | | | SERVICES, | | | | | | CORE | | + + + + + + | HEMOGLOBIN | 13.9 | 13.5 - 17.5 | [facility] | | | | | g/dL | LABORATORY | | | | | | SERVICES, | | | | | | CORE | | + + + + + + | HEMATOCRIT | 41.3 | 41.0 - 53.0 % | [facility] | | | | | | LABORATORY | | | | | | SERVICES, | | | | | | CORE | | + + + + + + | MCV | 93.7 | 80.0 - 96.0 fL | [facility] | | | | | | LABORATORY | | | | | | SERVICES, | | | | | | CORE | | + + + + + + | MCHC | 33.7 | 33.0 - 35.5 | [facility] | | | | | g/dL | LABORATORY | | | | | | SERVICES, | | | | | | CORE | | + + + + + + | RDW SD | 44.2 | 35.1 - 46.3 fL | [facility] | | | | | | LABORATORY | | | | | | SERVICES, | | | | | | CORE | | + + + + + + | PLATELET | 264 | 150 - 400 K/cu | [facility] | | | COUNT | | mm | LABORATORY | | | | | | SERVICES, | | | | | | CORE | | + + + + + + | MPV | 8.3 (L) | 9.7 - 12.3 [...] [facility] | [address] | [place] [address] | | | SERVICES, CORE | [address] | | | + + + + + IGG, SERUM (07/19/2017 9:24 AM PST) + +---------+ + + + | Component | Value | Ref Range | Performed | Pathologist | | | | | At | Signature | + +---------+ + + + | IGG SERUM | 623 (L) | 700 - 1600 | [facility] [...] | + + + + + | [facility] | [address] | [place] [address] | | | [place] | | | | + + + + + HEPATITIS B CORE AB, SERUM (07/19/2017 9:24 AM PST) + + + + + + | Component | Value | Ref Range | Performed | Pathologist | | | | | At | Signature | + + + + + + | HEP B CORE | Not Detected | Not Detected | [facility] | | | AB | | | LABORATORY | | | [...] | + + + + + | [facility] | [address] | [place] [address] | | | SERVICES, CORE | [address] | | | + + + + + FERRITIN (07/19/2017 9:24 AM PST) + + + + + + | Component | Value | Ref Range | Performed | Pathologist | | | | | At | Signature | + + + + + + | FERRITIN | 1,049 (H)Comment: Male | 50 - 200 ng/mL [...] [facility] | [address] | [place] [address] | | | SERVICES, INDRA | [address] | | | + + + + + MAGNESIUM, PLASMA (07/19/2017 9:24 AM PST) + +-------+ + + + [...] [facility] | [address] | [place] [address] | | | SERVICES, CORE | [address] | | | + + + + + TSH (07/19/2017 9:24 AM PST) + +-------+ + + + | Component | Value | Ref Range | Performed | Pathologist | | | | | At | Signature | + +-------+ + + + | TSH | 1.25 | 0.40 - 3.98 | [facility] | [...] [facility] | [address] | [place] [address] | | | SERVICES, CORE | [address] | | | + + + + + VITAMIN D, 25-HYDROXY, SERUM (07/19/2017 9:24 AM PST) + +-------+ + + + | Component | Value | Ref Range | Performed | Pathologist | | | | | At | Signature | + +-------+ + + + | VITAMIN D | 30.6 | 30 - 80 ng/mL | [facility] [...] [facility] | [address] | [place] [address] | | | SERVICES, CORE | [address] | | | + + + + + documented in this encounter Visit Diagnoses + + | Diagnosis | + + | 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
--- OUTSIDE RECORDS SUMMARY | ~2019-05-17 | XMS | Encounter Summary ---
Demographics + + + | Address | [address] | | | [place] [address] | + + + | Home Phone | | + + + | Preferred Language | Unknown | + + + | Marital Status | | + + + | Zoroastrianism Affiliation | SPI | + + + | Race | White | + + + | Ethnic Group | Not or | + + + Author + + + | Author | [facility] | + + + | Organization | [facility] | + + + | Address | Unknown | + + + | Phone | Unavailable | + + + Support + + +---------+ + | Name | Relationship | Address | Phone | + + +---------+ + | Gabriel Kelly | ECON | Unknown | | + + +---------+ + Care Team Providers + +------+ + | Care Shake Sawyer Name | Role | Phone | + +------+ + | Pending Pcp Addition | PCP | Unavailable | + +------+ + Reason for Visit Benefits Check (Routine) +--------+--------+ + + + [...] | | | | | | | [address] | | | | | | | [address] | | | | | | | [place], | | | | | | | [place] | | | | | | | [address] | | | | | | | Phone: | | | | | | | [phone] | | | | | | | Fax: | | | | | | | [phone] | +--------+--------+ + + + + Encounter Details +--------+---------+ + + + | Date | Type | Department | Care Team | Description | +--------+---------+ + + + | 07/15/ | Office | Center for | Yari Garcia MD | 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), M4 | | | | Malignancies at | [address] | (HCC) (Primary Dx) | | | | [facility] | [place], [place] | | | | | [address] | [address] | | | | | [address]ally [address] Mailcode: | [phone] | | | | | [id number] | | | | | | [place], | | | | | | [place] [address] | | | | | | [phone] | | | +--------+---------+ + + + [...] + + + | Blood Pressure | 121/86 | 07/15/2015 1:57 PM | | | | | PST | | + + + + + | Pulse | 102 | 07/15/2015 1:57 PM | | | | | PST | | + + + + + | Temperature | 37.1 C (98.7 F) | 07/15/2015 1:57 PM | | | | | PST | | + + + + + | Respiratory Rate | 16 | 07/15/2015 1:57 PM | | | | | PST | | + + + + + | Oxygen Saturation | 100% | 07/15/2015 1:57 PM | | | | | PST | | + + + + + | Inhaled Oxygen | - | - | | | Concentration | | | | + + + + + | Weight | 83.5 kg (184 lb) | 07/15/2015 1:57 PM | | | | | PST | | + + + + + | Height | 189.2 cm (6' 2.5") | 07/15/2015 1:57 PM | | | | | PST | | + + + + + | Body Mass Index | 23.31 | 07/15/2015 1:57 PM | | | | | PST | | + + + + + documented in this encounter Patient Instructions Patient Instructions Christina Hernandez RN - 07/15/2015 2:55 PM PSTJeremiah It was good to see you in the clinic today. Our plan is to get labs today and if needed we will call you or My Chart message you if you need anything this weekend We plan to have you start chemo next Sunday x 5 days, see Dr. Garcia on and decide i f you need 5 more days of chemo. We will test your parents to see if they are a half. Match. Check out at the front office agent today and make your next appointments. You can also call the s chedulers at [phone]. If you have any questions, or if you need prescription refills, or are experiencing any sym ptoms or side effects please call our life science research assistant at [phone] Your physicians nurse is Christina Hernandez. You can reach her Sunday thru by page at [phone], by phone at [phone] or via email at [email or web address] For an Allogeneic (Allo) transplant two things must be in place first 1) you need disease control 2) we need to have a donor (either sibling or unrelated volunteer donor). We will start process of searching for a donor today. 1) we will draw your blood to get your genetic information 2) we will ask insurance for approval to type your blood, and to type your siblings and the n if needed search for an unrelated donor. The Allo transplant gives you the best option for a cure but it does come with risks. Ther e are risks for you to have life threatening complications and or infections with this proce dure. The Allo transplant is basically going to give you a new immune system--(from the don or) Allo tranpslant is a 5 step/phases process. STEP 1) Active treatment (which is what you are doing now) to get the disease under control STEP 2) Pre-transplant evaluations to make sure disease is under control and you are health y enough to undergo the transplant. These tests include, labs, bone marrow biopsy, lung fu nction test, heart function tests, chest x-ray, ekg, and an education class for you and your caregiver and a meeting with Kezia Stokes our psychosocial rehabilitation counselor to help you if you need any othe r assistance -non medical stuff. ( we coordinate this to happen all here at [facility] in one da y) The 2 hour education class that you will attend here at [facility] that talks about what to expec t before, during and after transplant including GVHD Given the tests all come out good----After the tests you'll meet with Dr. Garcia to review th e test results and sign the consent forms. STEP 3) Transplant- you admit to [facility] and get high dose chemotherapy for several days then after the chem you get your transplant. This is about a 3-4 week hospitalization while you recover. You will need a central line for transplant STEP 4) When you discharge from [facility] after transplant you need to be living close to [facility] ( within 20 miles) for up to 100 days after the transplant. You will also need a 29/[facility] er or team of caregivers to assist you. The caregiver will bring to you clinic several time s a weeks, assist with food preparation, medications etc. Our Nurse Coordinator will work with you and the insurance company to get the proper author izations and the coordinator will make all the arrangements for your tests and your schedule . You will get a calendar outlining your schedule. DONOR TYPING and SEARCH We would like your siblings names and phone numbers (full siblings only. No 1/2 or steps) P lease provide them to our nurse Christina Hernandez via email at [email or web address] Once we have authorization we will send them a kit. They will use the kit to swab the insi de of their mouth and send the kit back to us (it's pre paid via [employer]) It will take 10 days to get the results to know if any siblings are a match to you. We yaima l contact you with that information. If none of your siblings match we will search an inter national data base to find a donor for you. documented in this encounter Progress Notes Yari Garcia MD - 08/07/2015 8:56 PM PST [facility] 07/15/15 Diagnosis: AML - primary induction failure Reason for visit: Establish longitudinal care and determine treatment plan Disease History: Khurram Kelly is a 24 y.o. CM with a PMH of pericarditis who [place] [facility] [place] [place] (the night of his wedding) at which time he noted bilateral ankle pain and swell ing. This persisted and worsened intermittently, progressing until he couldn't bear weight. He presented to the ED, was diagnosed with cellulitis of the RLE, and prescribed antibiotics . During evaluation, he was noted to be pancytopenic with subsequent white blood cell differ ential identifying a predominance of early appearing monocytes. On 04/18/15 he noted pleuritic anterior chest pains, low-grade fevers occasionally up to 10 1 with swelling and erythema over his L ankle. He was evaluated at [place]' ED on 06/[address] angiogram negative [...] acute myelomonocytic leukemia. He was referred to [facility] for further evaluation and man agement of his newly dx'd AML. Pt was admitted to [facility] on 05/26/15. Peripheral blood was sent for [...] CD34, variable CD56, variable CD117, and dim [id number] mickey; promonocyte immunophenotype (70% by flow): CD11b, [...] He was d/c'd to home on 07/08/15 Interval History: Khurram comes to clinic today to discuss treatment options for his primary refractory AML. He is feeling slightly less fatigued and mood is somewhat more upbeat now that he is out o f the hospital and able to spend time with his family and son. No fevers/chills, nausea/vom iting since discharge. Appetite is poor. Review of Systems Constitutional: Positive for weight loss and malaise/fatigue. Negative for fever and chills . Eyes: Negative for blurred vision. Respiratory: Negative for cough, shortness of breath and wheezing. Cardiovascular: Negative for chest pain and leg swelling. Gastrointestinal: Negative for heartburn, nausea, vomiting and abdominal pain. Musculoskeletal: Negative for myalgias, joint pain and falls. Skin: Negative for itching and rash. Neurological: Negative for dizziness, weakness and headaches. Endo/Heme/Allergies: Bruises/bleeds easily. Psychiatric/Behavioral: Positive for depression. The patient is not nervous/anxious. 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 Social History Main Topics Smoking status: Former Smoker -- 0.50 packs/day for 5 years Quit date: 05/20/2015 Smokeless tobacco: Not on file Alcohol Use: Yes Drug Use: No Sexual Activity: Not on file Other Topics Concern Not on file Social History Narrative Physical Exam Constitutional: He is well-developed, well-nourished, and in no distress. No distress. Pale, non-toxic. HENT: Head: Normocephalic. Mouth/Throat: Oropharynx is clear and moist. No oropharyngeal exudate. Eyes: Conjunctivae are normal. No scleral icterus. Cardiovascular: Normal rate, regular rhythm and normal heart sounds. No murmur heard. Pulmonary/Chest: Effort normal and breath sounds normal. No respiratory distress. Abdominal: Soft. Bowel sounds are normal. He exhibits no distension. Musculoskeletal: Normal range of motion. He exhibits no edema. Lymphadenopathy: He has no cervical adenopathy. Neurological: He is alert. Skin: Skin is warm and dry. Rash noted. He is not diaphoretic. No erythema. No pallor. Petechial lesions over ankles. Psychiatric: Memory, affect and judgment normal. No visits with results within 1 Day(s) from this visit. Latest known visit with results is: Clinical [employer] on 07/12/2015 Component Date Value SODIUM, POC 07/12/2015 135 POTASSIUM, POC 07/12/2015 3.5 TOTAL CO2, POC 07/12/2015 26 CHLORIDE, POC 07/12/2015 103 GLUCOSE, POC 07/12/2015 111* CALCIUM TOTAL, POC 07/12/2015 9.1 BUN, POC 07/12/2015 11 CREATININE, POC 07/12/2015 0.8 LDH, POC 07/12/2015 244 H MAGNESIUM, POC 07/12/2015 1.9 PHOSPHORUS, PLASMA (LAB) 07/12/2015 4.5 ALBUMIN, PLASMA (LAB) 07/12/2015 3.8 BILIRUBIN TOTAL 07/12/2015 0.5 BILIRUBIN DIRECT 07/12/2015 0.1 ALK PHOS 07/12/2015 73 AST(SGOT) 07/12/2015 30 ALT (SGPT) 07/12/2015 59 TOTAL PROTEIN, PLASMA (L* 07/12/2015 7.0 AST CMNT 07/12/2015 No Hemo BILI T CMNT 07/12/2015 No Hemo BILI D CMNT 07/12/2015 No Hemo URIC ACID, PLASMA (LAB) 07/12/2015 3.1* WHITE CELL COUNT 07/12/2015 0.93* RED CELL COUNT 07/12/2015 2.67* HEMOGLOBIN 07/12/2015 7.8* HEMATOCRIT 07/12/2015 21.8* MCV 07/12/2015 81.6 MCHC 07/12/2015 35.8 RDW SD 07/12/2015 34.5* PLATELET COUNT 07/12/2015 12* MPV 07/12/2015 9.5* NRBC% 07/12/2015 0.0 NRBC# 07/12/2015 0.00 ABO GROUP 07/12/2015 A RH TYPE, BLOOD 07/12/2015 Positive ANTIBODY SCREEN 07/12/2015 Negative NEUTROPHIL % 07/12/2015 0.6* LYMPHOCYTE % 07/12/2015 45.2* MONOCYTE % 07/12/2015 39.9* EOSINOPHIL % 07/12/2015 0.0* BASOPHIL % 07/12/2015 0.0 IMMATURE GRANULOCYTE% 07/12/2015 14.3* NEUTROPHIL # 07/12/2015 0.01* LYMPHOCYTE # 07/12/2015 0.42* MONOCYTE # 07/12/2015 0.37 EOSINOPHIL # 07/12/2015 0.00 BASOPHIL # 07/12/2015 0.00 IMMATURE GRANULOCYTE# 07/12/2015 0.13* Assessment: 24 year old male with PIF AMML after induction chemotherapy with idarubicin an d cytarabine followed by reinduction with high dose cytarabine and methotrexate. Plan: 1. AMML - very high risk situation with PIF after 2 courses of induction with only isolate d NRAS mutation, and without known antecedent hematologic disorder. Reviewed overall situation - obviously worrisome as disease not responsive to cytotoxic paolo motherapy. Will initiate 10 day course of decitabine at standard dosing in attempt at disease control while a transplant plan is made. Reviewed risks and benefits of decitabine and patient agre es to proceed. No sibling HLA match (sib is also not a haplo). No URD 04/17 matches. Additional samples requested with potential single antigen mismatches. Haplo samples to be obtained from [facility] for consideration of haplo-identical transplant from mom or dad, though the current [facility] protocol precludes enrollment of patients with active AML and we would have to obtain a waiver to allow his enrollment. CBU not an active consideration for PIF AML. Difficult situation overall, at best 20-30% terminal clerk survival with SCT, negligible long te rm survival without it. Should he be unresponsive to decitabine, I will refer him to Dr. Pretty at [facility] for c onsideration of the bispecific antibody study (DART). 2. Immunocompromised host -acyclovir for viral prophylaxis -levaquin for bacterial prophylaxis -posaconazole for fungal prophylaxis 3. Dental issues -has some dental work that needs work (crown is off), but limited ability to have dental ma nipulations given severity of pancytopenia -encouraged pt to identify local dentist in [place] for diagnostic visit - if there are si gnificant concerns, he can be transfused with platelets and will need prophylactic antibioti cs. 4. Depression, Situational, no suicidal ideation -offered initiation of anti-depressants - he is not ready yet, encourage him to continue th inking about it, and if depression/anxiety is interfering with his ability to get through tr eatment to let me know so that an anti-depressant can be initiated -recommended discussion with social work regarding overall extremely stressful situation. 5. Cytopenias -transfuse with leukocyte reduced irradiated blood products for platelets <10, hct <21% or symptomatic 6. Follow-up -Plan to initiate 10 day course of decitabine while working toward definitive transplant pl an -daily treatment with decitabine and then 2-3x/ weekly labs with once weekly provider visit s Yari Garcia MD, MS Biogeographeraquatics director [facility] [address] [place] [id number] Display Progress Note in MyChart: No I spent 60 minutes in direct contact with the patient and his family, greater than 50% of w hich was spent in counseling and coordination of care. documented in this enc ounter Plan of [...] 2018 | Visit | Malignancy | [address] [facility] | | | | | | [address] | | | | | | [place], [place] | | | | | | [address] | | | | | | [phone] | | | | | | | | +--------+---------+ + + + documented as of this encounter Results LIT - HLA VERIFICATION TYPING CLASS II (07/15/2015 3:21 PM PST) + + | Specimen | + + | Blood - Blood | | (substance) | + + + + + + + | Performing | Address | City/State/Zipcode | Phone Number | | Organization | | | | + + + + + | [facility] - | [address] | [place] [address] | | | IMMUNOGENETICS/TRANS | [address] | | | | PLANT [facility] | | | | + + + + + LIT - HLA VERIFICATION TYPING CLASS I (07/15/2015 3:21 PM PST) + + | Specimen | + + | Blood - Blood | | (substance) | + + + + + + + | Performing | Address | City/State/Zipcode | Phone Number | | Organization | | | | + + + + + | [facility] - | [address] | [place], [place] | | | IMMUNOGENETICS/TRANS | [address] | | | | [facility] LAB[facility]ATORY | | | | + + + + + LIT FLOW HLA AB PRA SCREEN I/II (07/15/2015 3:21 PM PST) + + | Specimen | + + | Blood - Blood | | (substance) | + + + + + + + | Performing | Address | City/State/Zipcode | Phone Number | | Organization | | | | + + + + + | [facility] - | [address] | [place], [place] | | | IMMUNOGENETICS/TRANS | [address] | | | | PLANT LAB[facility]ATORY | | | | + + + + + CMV PCR QUANTITATION, PLASMA (07/15/2015 3:21 PM PST) + + + + + + | Component | Value | Ref Range | Performed | Pathologist | | | | | At | Signature | + + + + + + | CMV DNA | Undetected | Undetected, | [facility] | | | QUANTITATIO | | Undetected - | DIAGNOSTIC | | | N BY PCR, | | See Below IU/mL | | | | PLASMA | | | LABORATORIE | | | | | | S | | + + + + + + + + | Specimen | + + | Blood - Blood | | (substance) | + + + + + | Narrative | Performed At | + + + | Changes in viral load of less than 2 fold may not reflect true | [facility] | | biological changes and must be interpreted cautiously. High or | DIAGNOSTIC | | serially rising CMV loads may indicate active or impending CMV disease | LABORATORIES | | or poor antiviral therapy response. Undetected results suggest | | | either an absence of CMV viremia or the presence of low-level viremia | | | below the lower sensitivity limit of 200 IU/mL. Reportable range = | | | 200-5,000,000,000 CMV IU/mL of plasma Detection limit: At or below | | | 200 CMV IU/mL This test was developed and its performance | | | characteristics determined by the [facility] | | | [facility]. It has not been cleared or approved by | | | the Food and Drug Administration. FDA approval is not required for | | | clinical use of this test, and therefore validation was done as | | | required under the requirements of the Clinical Laboratory Improvement | | | Act of 1988. The [facility] | | | Diagnostic Center is a fully licensed and/or accredited clinical | | | laboratory under CLIA, CAP, and the [facility]. | | + + + + + + + + | Performing | Address | City/State/Zipcode | Phone Number | | Organization | | | | + + + + + | [facility] | [address] | [place] [address] | | | DIAGNOSTIC | [address] | | | | LABORATORIES | | | | + + + + + TOMMY VOSS VIRUS PANEL, SERUM (07/15/2015 3:21 PM PST) + + + + + + | Component | Value | Ref Range | Performed | Pathologist | | | | | At | Signature | + + + + + + | TOMMY | 41.4 (H)Comment: | 0.0 - 21.9 U/mL | [facility] | | | VOSS VIRUS | INTERPRETIVE | | REG UNIV | | | AB VCA IGG | INFORMATION: | | PTH - INTFC | | | | Tommy-Voss Virus | | | | | | Antibody to | | | | | | | | | | | | Viral Capsid Antigen, | | | | | | IgG 17.9 U/mL or | | | | | | less.......Not Detected | | | | | | 18.0-21.9 | | | | | | U/mL..........Indetermin | | | | | | ate - Repeat testing in | | | | | | | | | | | | 10-14 | | | | | | days may be helpful. | | | | | | 22.0 U/mL or | | | | | | greater....Detected | | | | | | Interpretive information | | | | | | regarding serologic | | | | | | features of | | | | | | EBV-associated diseases | | | | | | is available at | | | | | | www.[employer]/ebvd | | | | | | x. | | | | + + + + + + | AB TO VCA | <10.0Comment: | 0.0 - 43.9 U/mL | [facility] | | | IGM | INTERPRETIVE | | REG UNIV | | | | INFORMATION: | | PTH - INTFC | | | | Tommy-Voss Virus | | | | | | Antibody to | | | | | | | | | | | | Viral Capsid Antigen, | | | | | | IgM 35.9 U/mL or | | | | | | less.......Not Detected | | | | | | 36.0-43.9 | | | | | | U/mL..........Indetermin | | | | | | ate - Repeat testing in | | | | | | | | | | | | 10-14 days | | | | | | may be helpful. 44.0 | | | | | | U/mL or | | | | | | greater....Detected | | | | | | Interpretive information | | | | | | regarding serologic | | | | | | features of | | | | | | EBV-associated diseases | | | | | | is available at | | | | | | www.[employer]/ebvd | | | | | | x. | | | | + + + + + + | AB TO | 38.1 (H)Comment: | 0.0 - 21.9 U/mL | [facility] | | | NUCLEAR AG | INTERPRETIVE | | REG UNIV | | | | INFORMATION: | | PTH - INTFC | | | | Tommy-Voss Virus | | | | | | Antibody to | | | | | | | | | | | | Nuclear Antigen, IgG | | | | | | 17.9 U/mL or | | | | | | less.......Not Detected | | | | | | 18.0-21.9 | | | | | | U/mL..........Indetermin | | | | | | ate - Repeat testing in | | | | | | | | | | | | 10-14 days | | | | | | may be helpful. 22.0 | | | | | | U/mL or | | | | | | greater....Detected | | | | | | Interpretive information | | | | | | regarding serologic | | | | | | features of | | | | | | EBV-associated diseases | | | | | | is available at | | | | | | [email or web address] | | | | | | x. | | | | + + + + + + | AB TO EARLY | <5.0Comment: | 0.0 - 10.9 U/mL | [facility] | | | AG | INTERPRETIVE | | REG UNIV | | | | INFORMATION: | | PTH - INTFC | | | | Tommy-Voss Virus | | | | | | Antibody to | | | | | | | | | | | | Early D Antigen | | | | | | (EA-D), IgG 8.9 U/mL | | | | | | or less........Not | | | | | | Detected 9.0-10.9 | | | | | | U/mL...........Indetermi | | | | | | francisco javier - Repeat testing in | | | | | | | | | | | | 10-14 may | | | | | | be helpful. 11.0 U/mL | | | | | | or greater....Detected | | | | | | Interpretive information | | | | | | regarding serologic | | | | | | features of | | | | | | EBV-associated diseases | | | | | | is available at | | | | | | [email or web address] | | | | | | x.Performed by [facility] | | | | | | Elizabeth,Misa Quiroga | | | | | | [place] [address] | | | | | | [phone] | | | | | | Elmo greenwood, | | | | | | MD, Lab. Director | | | | + + + + + + + + | Specimen | + + | Blood - Blood | + + + + + + + | Performing | Address | City/State/Zipcode | Phone Number | | Organization | | | | + + + + + | [facility] | [address] | [place], [place] | | | UNIV PTH - INTFC | | [address] | | + + + + + TOXOPLASMA IGG AB, SERUM (07/15/2015 3:21 PM PST) + + + + + + | Component | Value | Ref Range | Performed | Pathologist | | | | | At | Signature | + + + + + + | TOXOPLASMA | <3 | <=9 IU/mL | [facility] - | | | IGG AB | | | AIRPORT - | | | | | | [place] | | + + + + + + | TOXO IGG | Negative | | [facility] - | | | INTERPRETAT | Comment: | | AIR[facility] - | | | ION | Negative: <10 IU/mL | | [place] | | | | Equivocal: 10-11 IU/mL | | | | | | Positive: >11 IU/mL | | | | + + + + + + + + | Specimen | + + | Blood - Blood | + + + + + + + | Performing | Address | City/State/Zipcode | Phone Number | | Organization | | | | + + + + + | [facility] - | [address] | [place] [address] | | | [place] | | | | + + + + + HEPATITIS B SURFACE AB QUAL, SERUM (07/15/2015 3:21 PM PST) + + + + + + | Component | Value | Ref Range | Performed | Pathologist | | | | | At | Signature | + + + + + + | HEP B | Reactive (A) | Non Reactive | [facility] - | | | SURFACE AB | | | AIRPORT - | | | QUAL, SERUM | | | [place] | | + + + + + + + + | Specimen | + + | Blood - Blood | + + + + + + + | Performing | Address | City/State/Zipcode | Phone Number | | Organization | | | | + + + + + | [facility] - | [address] | [place] [address] | | | [place] | | | | + + + + + HEPATITIS A AB SCREEN, SERUM (07/15/2015 3:21 PM PST) + + + + + + | Component | Value | Ref Range | Performed | Pathologist | | | | | At | Signature | + + + + + + | HEPATITIS A | Positive (A)Comment: | Negative | [facility] - | | | AB TOTAL | Antibody Pos | | AIRPORT - | | | [...] + | [facility] - | [address] | [place] [address] | | | [place] | | | | + + + + + VARICELLA ZOSTER IGG, SERUM (07/15/2015 3:21 PM PST) + + + + + + | Component | Value | Ref Range | Performed | Pathologist | | | | | At | Signature | + + + + + + | VARICELLA | Positive | | [facility] - | | | ZOSTER IGG | | | AIRPORT - | | | | | | [place] | | + + + + + + + + | Specimen | + + | Blood - Blood | + + + + + + + | Performing | Address | City/State/Zipcode | Phone Number | | Organization | | | | + + + + + | [facility] - | [address] [address] | [place] [address] | | | [place] | | | | + + + + + HSV ANTIBODY, SERUM (07/15/2015 3:21 PM PST) + + + + + + | Component | Value | Ref Range | Performed | Pathologist | | | | | At | Signature | + + + + + + | HSV 1/2 IGG | 4.28Comment: | IV | [facility] | | | ANTIBODY | INTERPRETIVE | | REG UNIV | | | | INFORMATION: HSV 1/2 | | PTH - [facility] | | | | COMBINED Ab SCREEN, IgG | | | | | | 0.89 IV or | | | | | | less.........Not | | | | | | Detected 0.90-1.09 | | | | | | IV............Indetermin | | | | | | ate- Repeat testing | | | | | | | | | | | | in 10-14 days | | | | | | may be helpful. 1.10 | | | | | | IV or | | | | | | greater......Detected | | | | | | The best evidence for | | | | | | current infection is a | | | | | | significant change on | | | | | | two appropriately timed | | | | | | specimens, where both | | | | | | tests are done in the | | | | | | same laboratory at the | | | | | | same time. | | | | + + + + + + | HSV 1/2 IGM | 0.33Comment: | <=0.89 IV | [facility] | | | ANTIBODY | INTERPRETIVE | | REG UNIV | | | | INFORMATION: Herpes | | PTH - [facility] | | | | Simplex Virus Type 1 | | | | | | and/or 2 Antibodies, IgM | | | | | | by LEAH 0.89 IV or | | | | | | Less .......... Not | | | | | | Detected 0.90 - 1.09 | | | | | | IV ........... | | | | | | Indeterminate- Repeat | | | | | | testing in | | | | | | | | | | | | 10-14 days may be | | | | | | helpful. 1.10 IV or | | | | | | Greater ....... | | | | | | Detected-IgM antibody to | | | | | | HSV | | | | | | | | | | | | detected, which may | | | | | | indicate a | | | | | | | | | | | | current or recent | | | | | | infection. | | | | | | | | | | | | However, low | | | | | | levels of IgM | | | | | | | | | | | | antibodies may | | | | | | occasionally | | | | | | | | | | | | persist for more | | | | | | than 12 | | | | | | | | | | | | months | | | | | | post-infection.Performed | | | | | | by [facility] | | | | | | [facility],[address] | | | | | | [place] [address] | | | | | | [phone] | | | | | | timo, Elmo Roberts, | | | | | | , Lab. Director | | | | + + + + + + + + | Specimen | + + | Blood - Blood | + + + + + + + | Performing | Address | City/State/Zipcode | Phone Number | | Organization | | | | + + + + + | [facility] | [address] | [place], [place] | | | UNIV P[facility] | | [id number] | | + + + + + INR (07/15/2015 3:21 PM PST) + +-------+ + + + | Component | Value | Ref Range | Performed | Pathologist | | | | | At | Signature | + +-------+ + + + | INR | 1.06 | 0.90 - 1.20 INR | [facility] | | | | | | LABORATORY | | | | | | SERVICES, | | | | | | CORE | | + +-------+ + + + + + | Specimen | + + | Blood - Blood | | (substance) | + + + + + | Narrative | Performed At | + + + | INR Therapeutic ranges for full anticoagulation: INR for | [facility] | | Venous Thromboembolism (2.0 - 3.0) INR INR for | LABORATORY | | most patients with mech. valves (2.5 - 3.5) INR | SERVICES, CORE | + + + + + + + + | Performing | Address | City/State/Zipcode | Phone Number | | Organization | | | | + + + + + | [facility] | [address] | [place] [address] | | | SERVICES, CORE | [address] | | | + + + + + APTT (ACT. PART. THROMBO TIME) (07/15/2015 3:21 PM PST) + +-------+ + + + | Component | Value | Ref Range | Performed | Pathologist | | | | | At | Signature | + +-------+ + + + | APTT | 33.7 | 26.0 - 36.0 | [facility] | | | | | seconds | LABORATORY | | | | | | SERVICES, | | | | | | CORE | | + +-------+ + + + + + | Specimen | + + | Blood - Blood | | (substance) | + + + + + | Narrative | Performed At | + + + | APTT Therapeutic Range: (75 - | [facility] | | 120) sec Heparin levels of 0.35 - 0.7 U/mL | LABORATORY | | | SERVICES, CORE | + + + + + + + + | Performing | Address | City/State/Zipcode | Phone Number | | Organization | | | | + + + + + | [facility] | [address] | [place] [address] | | | SERVICES, CORE | [address] | | | + + + + + CHOLESTEROL TOTAL, PLASMA (07/15/2015 3:21 PM PST) + +-------+ + + + | Component | Value | Ref Range | Performed | Pathologist | | | | | At | Signature | + +-------+ + + + | CHOLESTEROL | 163 | <200 mg/dL | [facility] | | [...] + + | [facility] | [address] | [place] [address] | | | SERVICES, CORE | [address] | | | + + + + + LDH TOTAL, PLASMA (07/15/2015 3:21 PM PST) + +---------+ + + + | Component | Value | Ref Range | Performed | Pathologist | | | | | At | Signature | + +---------+ + + + | LD TOTAL, | 158 | <=250 U/L | [facility] | | [...] [facility] | [address] | [place] [address] | | | INDRA SHARIF | [address] | | | + + + + + BILIRUBIN DIRECT (07/15/2015 3:21 PM PST) + +---------+ + + + [...] + +---------+ + + + | BILI D CMNT | No Hemo | | [facility] [...] [facility] | [address] | [place] [address] | | | SERVICES, CORE | [address] | | | + + + + + URIC ACID, PLASMA (07/15/2015 3:21 PM PST) + +---------+ + + + | Component | Value | Ref Range | Performed | Pathologist | | | | | At | Signature | + +---------+ + + + | URIC ACID, | 3.1 (L) | 3.7 - 8.0 mg/dL | [facility] [...] | + + + + + | [facility] | [address] | [place] [address] | | | SERVICES, CORE | [address] | | | + + + + + PHOSPHORUS, PLASMA (07/15/2015 3:21 PM PST) + +-------+ + + + | Component | Value | Ref Range | Performed | Pathologist | | | | | At | Signature | + +-------+ + + + | PHOSPHORUS, | 4.7 | 2.4 - 4.7 mg/dL | [facility] [...] [facility] | [address] | [place] [address] | | | SERVICES, CORE | [address] | | | + + + + + MAGNESIUM, PLASMA (07/15/2015 3:21 PM PST) + +-------+ + + + | Component | Value | Ref Range | Performed | Pathologist | | | | | At | Signature | + +-------+ + + + | MAGNESIUM,P | 1.9 | 1.8 - 2.5 mg/dL | [facility] [...] + + | [facility] | [address] | [place] [address] | | | SERVICES, CORE | [address] | | | + + + + + COMPLETE METABOLIC SET (NA,K,CL,CO2,BUN,CREAT,GLUC,CA,AST,ALT,BILI TOTAL,ALK PHOS,ALB,PROT TOTAL) (07/15/2015 3:21 PM PST) + +---------+ + + + | Component | Value | Ref Range | Performed | Pathologist | | | | | At | Signature | + +---------+ + + + | GLUCOSE, | 104 (H) | 60 - 99 mg/dL | [facility] | | | PLASMA | | | LABORATORY | | | (LAB) | | | SERVICES, | | | | | | CORE | | + +---------+ + + + | BUN, PLASMA | 16 | 6 - 20 mg/dL | [facility] | | | (LAB) | | | LABORATORY | | | | | | SERVICES, | | | | | | CORE | | + +---------+ + + + | CREATININE | 0.97 | 0.70 - 1.30 | [facility] | | | PLASMA | | mg/dL | LABORATORY | | | (LAB) | | | SERVICES, | | | | | | CORE | | + +---------+ + + + | EGFR | >60 | >60 mL/min | [facility] | | | - | | | LABORATORY | | | [facility] | | | SERVICES, | | | [...] +---------+ + + + | POTASSIUM, | 4.0 | 3.4 - 5.0 | [facility] | [...] +---------+ + + + | CALCIUM, | 9.5 | 8.6 - 10.2 | [facility] | [...] +---------+ + + + | TOTAL | 7.5 | 6.4 - 8.2 g/dL | [facility] [...] + + + | ALK PHOS | 82 | 53 - 128 U/L | [facility] | | | | | | LABORATORY | | | | | | SERVICES, | | | | | | CORE | | + +---------+ + + + | AST(SGOT) | 24 | <=41 U/L | [facility] | | | | | | LABORATORY | | | | | | SERVICES, | | | | | | CORE | | + +---------+ + + + | ALT (SGPT) | 56 | <=60 U/L | [facility] | | | | | | LABORATORY | | | | | | SERVICES, | | | | | | CORE | | + +---------+ + + + | ANION | 7 | 4 - 11 mmol/L | [facility] [...] + + + | ANION GAP | 8 | mmol/L | [facility] | | | [...] the MDRD equation recommended by the | [facility] | | National Kidney Disease Education Program. [...] [facility] | [address] | [place] [address] | | | SERVICES, CORE | [address] | | | + + + + + documented in this encounter Visit Diagnoses + + | Diagnosis | + + | Acute myeloid leukemia (AML), M4 (HCC) - Primary | + + documented in this encounter
--- OUTSIDE RECORDS SUMMARY | ~2019-05-17 | XMS | Encounter Summary ---
Demographics + + + | Address | [address] | | | [place] [address] | + + + | Home Phone | | + + + | Preferred Language | Unknown | + + + | Marital Status | | + + + | Cheondoism Affiliation | SPI | + + + | Race | White | + + + | Ethnic Group | Not or | + + + Author + + + | Author | [facility] | + + + | Organization | [facility] | + + + | Address | Unknown | + + + | Phone | Unavailable | + + + Support + + +---------+ + | Name | Relationship | Address | Phone | + + +---------+ + | Gabriel Kelly | ECON | Unknown | | + + +---------+ + Care Team Providers + +------+ + | Care Senior Loss Control Specialist Name | Role | Phone | + +------+ + | Pending Pcp Addition | PCP | Unavailable | + +------+ + Encounter Details +--------+ + + + + | Date | Type | Department | Care Team | Description | +--------+ + + + + | 06/15/ | MyChart | [facility] for | [facility] FNP | medications | | 2016 | Encounter | Hematologic | [address] | | | | | Malignancies at | [address] | | | | | [facility] | [place], [place] | | | | | [address] | [address] | | | | | Debi Burger Mailcode: | [phone] | | | | | [id number] | | | | | | [place], | | | | | | [place] [address] | | | | | | [phone] | | | +--------+ + + + [...] | 2019 | Visit | Malignancy | [address] | | | | | [address] | | | | | | [place], [place] | | | | | | [address] | | | | | | [phone] | | | | | | | | +--------+---------+ + + + documented as of this encounter Visit Diagnoses Not on filedocumented in this encounter"
--- OUTSIDE RECORDS SUMMARY | ~2019-05-17 | XMS | Encounter Summary ---
Demographics + + + | Address | [address] | | | [place] [address] | + + + | Home Phone | | + + + | Preferred Language | Unknown | + + + | Marital Status | | + + + | Christian Affiliation | SPI | + + + | Race | White | + + + | Ethnic Group | Not or | + + + Author + + + | Author | [facility] | + + + | Organization | [facility] | + + + | Address | Unknown | + + + | Phone | Unavailable | + + + Support + + +---------+ + | Name | Relationship | Address | Phone | + + +---------+ + | Gabriel Kelly | ECON | Unknown | | + + +---------+ + Care Team Providers + +------+ + | Care Degreasing Wheel Operator Name | Role | Phone | + +------+ + | Zayda Hinton | PCP | | + +------+ + Encounter Details +--------+ + + + + | Date | Type | Department | Care Team | Description | +--------+ + + + + | 08/16/ | Pharmacy | Specialty Pharmacy | | | | 2016 | Visit | Services [address] | | | | | [address] | | | | | | [place], [place] | | | | | | [address] | | | | | | [phone] | | | +--------+ + + + [...] 2019 | Visit | Malignancy | [address] | | | | | | [address] | | | | | | [place], [place] | | | | | | [address] | | | | | | [phone] | | | | | | | | +--------+---------+ + + + documented as of this encounter Visit Diagnoses Not on filedocumented in this encounter"
--- OUTSIDE RECORDS SUMMARY | ~2019-05-17 | XMS | Encounter Summary ---
Demographics + + + | Address | [address] | | | [place] [address] | + + + | Home Phone | | + + + | Preferred Language | Unknown | + + + | Marital Status | | + + + | Episcopal Affiliation | SPI | + + + [...] Team Providers + +------+ + | Care Technical Programs Manager Name | Role | Phone | + +------+ + | Pending Pcp Addition | PCP | Unavailable | + +------+ + Reason for Visit + + + | Reason | Comments | + + + | Lab Draw | | + + + | Dressing change | | + + + Office Visit - E/M Services (Routine) +--------+---------+ + + + + | Status | Reason | Specialty | Diagnoses / | Referred By | Referred To | | | | | Procedures | Contact | Contact | +--------+---------+ + + + + | Closed | Other | Hematology | Diagnoses | Jose | [facility] | | | | Malignancy | 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, [place] | [id number] | | | | | remission | [id number] | [place] | | | | | | Phone: | Pavilion | | | | | Procedures | [phone] | [place], [place] | | | | | Post BMT | Fax: | [phone] | | | | | Auth to | [phone] | Phone: | | | | | included | | [phone] | | | | | facility, | | Fax: | | | | | diagnostics, | | [phone] | | | | | office | | | | | | | visits and | | | | | | | surgery | | | +--------+---------+ + + + + Encounter Details +--------+ + + + + | Date | Type | Department | Care Team | Description | +--------+ + + + + | 10/06/ | Clinical | Center for | | Lab Draw; Dressing | | 2016 | Support | Hematologic | | change | | | Staff | [facility] at [facility] | | | | | | [address] | | | | | | W[address] Mailcode: | | | | | | [id number] [place] | | | | | | [place], | | | | | | [place] [address] | | | | | | [phone] | | | +--------+ + + + [...] as of this encounter Progress Notes Deedee Benites, RN - 10/07/2015 10:15 AM PDTAssessment Patient reports he is feeling well today. Pt reports that he has no complaints. The patient denies colds, flu, fever, infection, nausea, vomiting, diarrhea, constipation, signs or symptoms of mucositis, edema, skin rash, urinary issues, shortness of breath and s igns or symptoms of bleeding. The patient reports that they are eating well and drinking at least two liters of fluid daily. Patient scheduled for provider visit today with JULIANA Jimenez. Labs Neostar accessed per protocol. Good blood return noted. Appropriate waste discarded. Lab s drawn and sent. Neostar pulse flushed with 20 mL NS. Tacrolimus Patient reports holding his tacrolimus this morning. He reports taking 1.5mg AM and 1.0mg P M. This matches the medication list. He confirms we have the correct contact number for his tacrolimus level changes. Dressing Change Pre-procedure pain level: 0 Neostar intact to left anterior chest wall without erythema or induration. Dressing remove d, skin intact without s/s exit site or tunnel infection. Using a Central Line Dressing Lora nge kit, site cleansed with Chloraprep (patient reports it is ok to use Chloraprep on his dr ulices). Skin prep applied prior to dressing application. Biopatch applied with SorbaView dressing. Positive pressure valves changed to each port. All lumens pulse flushed with 10 mL NS. Patient tolerated procedure without difficulty. Post-procedure pain level: 0 Supportive Care Patient did not require any supportive care, per orders. Patient discharged home, ambulatory from clinic with caregiver. 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 | | | | | | induction failure | | + +--------+ + + + | TREATMENT PARAMETERS | Routin | 10/07/2015 | 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 | 11:06 AM | leukemia (AML), 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 | | | | | | induction failure | | + +--------+ + + + | TREATMENT PARAMETERS | Routin | 10/07/2015 | 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 | 11:06 AM | leukemia (AML), M4 | | | | | PDT | ([facility])- primary | | | | | | induction failure | | + +--------+ + + + | TREATMENT PARAMETERS | Routin | 10/07/2015 | 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 | | | | | | (HCC) | | + +--------+ + + + | TREATMENT PARAMETERS | Routin | 10/07/2015 | Acute myeloid | | | #1 - [facility] | e | 10:38 AM | leukemia (AML), M4 | | | | | PDT | ([facility])- primary | | | | | | induction failure | | + +--------+ + + + | TREATMENT PARAMETERS | Routin | 10/07/2015 | Acute myeloid | | | #1 - [facility] | e | 10:38 AM | leukemia (AML), M4 | | | | | PDT | ([facility])- primary | | | | | | induction failure | | + +--------+ + + + | CBC+DIFF,POC | Urgent | 10/07/2015 | Acute myeloid | Results for this | | | | 10:29 AM | leukemia (AML), M4 | procedure are in the | | | | PDT | ([facility])- primary | results section. 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 | | | | | | (HCC) | | + +--------+ + + + | LIVER SET | Urgent | 10/07/2015 | Acute myeloid | Results for this | | (AST,ALT,BILI | | 10:15 AM | leukemia (AML), M4 | procedure are in the | | TOTAL,BILI | | PDT | ([facility])- primary | results section. | | DIRECT,ALK | | | induction failure | | | PHOS,ALB,PROT TOTAL) | | | S/P allogeneic bone | | | | | | marrow transplant | | | | | | (HCC) | | + +--------+ + + + | TACROLIMUS, WHOLE | Urgent | 10/07/2015 | Acute myeloid | Results for this | | BLOOD | | 10:15 AM | leukemia (AML), M4 | procedure are in the | | | | PDT | ([facility])- primary | results section. 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 | | | | | | (HCC) | | + +--------+ + + + | PHOSPHORUS, PLASMA | Urgent | 10/07/2015 | Acute myeloid | Results for this | | | | 10:15 AM | leukemia (AML), M4 | procedure are in the | | | | PDT | ([facility])- primary | results section. 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 | | | | | | (HCC) | | + +--------+ + + + | TREATMENT PARAMETERS | Routin | 10/07/2015 | 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 | 10:14 AM | leukemia (AML), M4 | | | | | PDT | ([facility])- primary | | | | | | induction failure | | + +--------+ + + + | NURSING | Routin | 10/07/2015 | Acute myeloid | | | COMMUNICATION #3 - | e | 10:14 AM | leukemia (AML), M4 | | | [facility] | | PDT | ([facility])- primary | | | | | | induction failure | | + +--------+ + + + | NURSING | Routin | 10/07/2015 | Acute myeloid | | | COMMUNICATION #2 - | e | 10:14 AM | leukemia (AML), M4 | | | [facility] | | PDT | ([facility])- primary | | | | | | induction failure | | + +--------+ + + + | NURSING | Routin | 10/07/2015 | Acute myeloid | | | COMMUNICATION #1 - | e | 10:14 AM | leukemia (AML), M4 | | | [facility] | | PDT | (HCC)- primary | | | | | | induction failure | | + +--------+ + + + documented in this encounter Results BMP PLUS, POC CHM (10/07/2015 10:43 AM PDT) + +---------+ + + + | Component | Value | Ref Range | Performed | Pathologist | | | | | At | Signature | + +---------+ + + + | SODIUM, POC | 139 | 134 - 143 | [facility] - | | | | | mmol/L | [facility] | | | | | | [facility] | | | | | | OF CARE | | | | | | TESTS | | + +---------+ + + + | POTASSIUM, | 3.9 | 3.4 - 5.0 | [facility] - | | | POC | | mmol/L | [facility] | | | | | | [facility] | | | | | | OF CARE | | | | | | TESTS | | + +---------+ + + + | TOTAL CO2, | 29 | 22 - 29 mmol/L | [facility] - | | | POC | | | [facility] | | | | | | [facility] | | | | | | OF CARE | | | | | | TESTS | | + +---------+ + + + | CHLORIDE, | 97 | 97 - 108 mmol/L | [facility] - | | | POC | | | [facility] | | | | | | [facility] | | | | | | OF CARE | | | | | | TESTS | | + +---------+ + + + | GLUCOSE, | 106 (H) | 60 - 99 mg/dL | [facility] - | | | POC | | | [facility] | | | | | | [facility] | | | | | | OF CARE | | | | | | TESTS | | + +---------+ + + + | CALCIUM | 9.3 | 8.6 - 10.2 | [facility] - | | | TOTAL, POC | | mg/dL | [facility] | | | | | | [facility] | | | | | | OF CARE | | | | | | TESTS | | + +---------+ + + + | BUN, POC | 20 | 6 - 20 mg/dL | [facility] [...] + + + | LDH, POC | 240 (H) | 0 - 206 U/L | [facility] - | | | | | | [facility] | | | | | | [facility] | | | | | | OF CARE | | | | | | TESTS | | + +---------+ + + + | MAGNESIUM, | 1.7 (L) | 1.8 - 2.5 mg/dL | [facility] - | | | [...] + | [facility] | [address] | [place], [place] | | | [facility] | [facility] | [address] | | | TESTS | | | | + + + + + CBC+DIFF,POC (10/07/2015 10:29 AM PDT) + + + + + + | Component | Value | Ref Range | Performed | Pathologist | | | | | At | Signature | + + + + + + | WBC POC | 10.7 | 4.4 - 11.0 | [facility] - | | | | | 10*3/uL | [facility] | | | | | | [facility] | | | | | | OF CARE | | | | | | TESTS | | + + + + + + | RBC POC | 3.53 (L) | 4.50 - 6.00 | [facility] - | | | | | 10*6/uL | [facility] | | | | | | [facility] | | | | | | OF CARE | | | | | | TESTS | | + + + + + + | HGB POC | 11.1 (L) | 13.5 - 17.5 | [facility] - | | | | | g/dL | [facility] | | | | | | [facility] | | | | | | OF CARE | | | | | | TESTS | | + + + + + + | HCT POC | 33.0 (L) | 41.0 - 53.0 % | [facility] - | | | | | | [facility] | | | | | | [facility] | | | | | | OF CARE | | | | | | TESTS | | + + + + + + | MCV POC | 93.5 | 80.0 - 96.0 fL | [facility] - | | | | | | [facility] | | | | | | [facility] | | | | | | OF CARE | | | | | | TESTS | | + + + + + + | MCH POC | 31.4 | 28.5 - 32.3 pg | [facility] - | | | | | | [facility] | | | | | | [facility] | | | | | | OF CARE | | | | | | TESTS | | + + + + + + | MCHC POC | 33.6 | 33.0 - 35.5 | [facility] - | | | | | g/dL | [facility] | | | | | | [facility], POINT | | | | | | OF CARE | | | | | | TESTS | | + + + + + + | RDW SD, POC | 58.1 (H) | 35.1 - 46.3 fL | [facility] - | | | | | | [facility] | | | | | | [facility], POINT | | | | | | OF CARE | | | | | | TESTS | | + + + + + + | PLT POC | 167 | 150 - 400 | [facility] - [...] + + + + | NEUTROPHIL% | 75.6 (H) | 50.0 - 70.0 % | [facility] - | | | POC | | | [facility] | | | | | | [facility] POINT | | | | | | OF CARE | | | | | | TESTS | | + + + + + + | LYMPH% POC | 10.0 (L) | 18 - 42 % | [facility] - | | | | | | [facility] | | | | | | [facility] POINT | | | | | | OF CARE | | | | | | TESTS | | + + + + + + | MONO %, POC | 10.9 (H) | 3.5 - 9.0 % | [facility] - | | | | | | [facility] | | | | | | [facility] POINT | | | | | | OF CARE | | | | | | TESTS | | + + + + + + | EOS %, POC | 3.1 (H) | 1.0 - 3.0 % | [facility] - | | | | | | [facility] | | | | | | [facility] POINT | | | | | | OF CARE | | | | | | TESTS | | + + + + + + | BASO %, POC | 0.4 | 0.0 - 2.0 % | [facility] - | | | | | | [facility] | | | | | | [facility] POINT | | | | | | OF CARE | | | | | | TESTS | | + + + + + + | NEUTROPHIL# | 8.1 (H) | 1.8 - 7.7 | [facility] - | | | POC | | 10*3/uL | [facility] | | | | | | [facility] | | | | | | OF CARE | | | | | | TESTS | | + + + + + + | LYMPH# POC | 1.1 | 1.0 - 4.8 | [facility] - | | | | | 10*3/uL | [facility] | | | | | | [facility] | | | | | | OF CARE | | | | | | TESTS | | + + + + + + | MONO #, POC | 1.2 (H) | 0.1 - 0.9 | [facility] - | | | | | 10*3/uL | [facility] | | | | | | [facility] POINT | | | | | | OF CARE | | | | | | TESTS | | + + + + + + | EOS #, POC | 0.3 | 0.0 - 0.5 | [facility] - [...] + + | CBC | Imm Gran. | | [facility] - | | | [...] [facility] | [address] | [place], [place] | | | [facility] [place] | [address] | [address] | | | TESTS | | | | + + + + + TACROLIMUS, WHOLE BLOOD (10/07/2015 10:15 AM PDT) + +-------+ + + + | Component | Value | Ref Range | Performed | Pathologist | | | | | At | Signature | + +-------+ + + + | TACROLIMUS | 10.7 | 5.0 - 15.0 | [facility] | | | ([address]) | | ng/mL | LABORATORY | | | | | | SERVICES, | | | | | | SPECIAL IMM | | | | | | + COAG | | + +-------+ + + + + + | Specimen | + + | Blood - Blood | | (substance) | + + + + + | Narrative | Performed At | + + + | Therapeutic range is based on a whole blood specimen drawn 12 | [facility] | | hours post-dose or prior to next dose (the trough). Some other factors | LABORATORY | | influencing therapeutic range, dose administered, and result | SERVICES, | | interpretation include time since transplantation, the organ | SPECIAL IMM + | | transplanted, co-administration of other immunosuppressants and | COAG | | interaction with other drugs that may increase or decrease Tacrolimus | | | concentrations. | | + + + + + + + + | Performing | Address | City/State/Zipcode | Phone Number | | Organization | | | | + + + + + | [facility] | [address] | [place] [address] | | | SERVICES, SPECIAL | [address] | | | | IMM + [place] | | | | + + + + + PHOSPHORUS, PLASMA (10/07/2015 10:15 AM PDT) + +-------+ + + + | Component | Value | Ref Range | Performed | Pathologist | | | | | At | Signature | + +-------+ + + + | PHOSPHORUS, | 3.5 | 2.4 - 4.7 mg/dL | [facility] [...] [facility] | [address] | [place] [address] | | | KO[place], CORE | [address] | | | + + + + + LIVER SET (AST,ALT,BILI TOTAL,BILI DIRECT,ALK PHOS,ALB,PROT TOTAL) (10/07/2015 10:15 AM PDT ) + +---------+ + + + | Component | Value | Ref Range | Performed | Pathologist | | | | | At | Signature | + +---------+ + + + | ALBUMIN, | 3.9 | 3.5 - 4.7 g/dL | [facility] | | | PLASMA | | | LABORATORY | | | (LAB) | | | SERVICES, | | | | | | CORE | | + +---------+ + + + | BILIRUBIN | 0.3 | 0.3 - 1.2 mg/dL | [facility] [...] + + + | ALK PHOS | 66 | 53 - 128 U/L | [facility] | | | | | | LABORATORY | | | | | | SERVICES, | | | | | | CORE | | + +---------+ + + + | AST(SGOT) | 25 | <=41 U/L | [facility] | | | | | | LABORATORY | | | | | | SERVICES, | | | | | | CORE | | + +---------+ + + + | ALT (SGPT) | 87 (H) | <=60 U/L | [facility] | | | | | | LABORATORY | | | | | | SERVICES, | | | | | | CORE | | + +---------+ + + + | TOTAL | 6.7 | 6.4 - 8.2 g/dL | [facility] [...] | + + + + + | [facility] | [address] | [place] [address] | | | SERVICES, CORE | [address] [...] in this encounter Administered Medications + +--------+ + +------+------+ | Medication Order | MAR | Action | Dose | Rate | Site | | | Action | Date | | | | + +--------+ + +------+------+ | heparin 10 unit/mL IV flush | Given | 10/07/19 | 50 Units | | | | syringe 50 Units 50 Units, | | 16 11:17 | | | | | Intracatheter, NEEDED, | | AM PDT | | | | | Starting Lupe 10/07/15 at 1117, | | | | | | | Until Lupe 10/07/15 at 1720, line | | | | | | | patency | | | | | | + +--------+ + +------+------+ +-------+ + +---+---+ | Given | 10/07/19 | 50 Units | | | | | 16 11:16 | | | | | | AM PDT | | | | +-------+ + +---+---+ | Given | 10/07/19 | 50 Units | | | | | 16 11:15 | | | | | | AM PDT | | | | +-------+ + +---+---+ +---+---+ | | | +---+---+ documented in this encounter"
--- OUTSIDE RECORDS SUMMARY | ~2019-05-17 | XMS | Encounter Summary ---
Demographics + + + | Address | [address] | | | [place] [address] | + + + | Home Phone | | + + + | Preferred Language | Unknown | + + + | Marital Status | | + + + | Pentecostal Affiliation | SPI | + + + | Race | White | + + + | Ethnic Group | Not or | + + + Author + + + | Author | [facility] | + + + | Organization | [facility] | + + + | Address | Unknown | + + + | Phone | Unavailable | + + + Support + + +---------+ + | Name | Relationship | Address | Phone | + + +---------+ + | Gabriel Kelly | ECON | Unknown | | + + +---------+ + Care Team Providers + +------+ + | Care Clinical Physician Assistant Name | Role | Phone | + +------+ + | No Pcp Per Patient | PCP | Unavailable | + +------+ + Reason for Visit + + + | Reason | Comments | + + + | Transplant follow-up | | + + + Encounter Details +--------+---------+ + + + | Date | Type | Department | Care Team | Description | +--------+---------+ + + + | 09/25/ | Office | Center for | [facility] FNP | S/P allogeneic bone | | 2017 | Visit | Hematologic | [address] [facility] | marrow transplant | | | | Malignancies at | [place] | (HCC) (Primary Dx) | | | | [facility] | [facility] [place] | | | | | [address] [place] | [address] | | | | | [place] Mailcode: | [phone] | | | | | [id number] [facility] | | | | | | [facility] [place], | | | | | | [place] [address] | | | | | | [phone] | | | +--------+---------+ + + + [...] + + + | Blood Pressure | 109/61 | 09/25/2016 3:35 PM | | | | | PDT | | + + + + + | Pulse | 94 | 09/25/2016 3:35 PM | | | | | PDT | | + + + + + | Temperature | 36.9 C (98.4 F) | 09/25/2016 3:35 PM | | | | | PDT | | + + + + + | Respiratory Rate | 19 | 09/25/2016 3:35 PM | | | | | PDT | | + + + + + | Oxygen Saturation | 99% | 09/25/2016 3:35 PM | | | | | PDT | | + + + + + | Inhaled Oxygen | - | - | | | Concentration | | | | + + + + + | Weight | 77.7 kg (171 lb 4.8 | 09/25/2016 3:35 PM | | | | oz) | PDT | | + + + + + | Height | - | - | | + + + + + | Body Mass Index | 21.41 | 09/20/2016 10:53 AM | | | | | PDT | | + + + + + documented in this encounter Progress Notes Aspen Cummins, [place] - 09/25/2016 4:15 PM PDT 09/25/2016 [facility] MD: Yari Garcia MD Primary Oncologist: Yari Garcia MD Diagnosis: AMML, primary refractory Transplant Date: 08/27/15 Donor: MM URD (DPB1 permissive antigen mismatch, male, [id number]) Identifying Data: Khurram Lobo Kelly is a 26 y.o. CM with [...] his L ankle. He was evaluated at [facility] ED on 06/[address] angiogram negative [...] acute myelomonocytic leukemia. He was referred to [facility] for further evaluation and man agement of his newly dx'd AML. Pt was admitted to [facility] on 05/26/15. Peripheral blood was sent [...] CD34, variable CD56, variable CD117, and dim LC549-ykbye mickey; promonocyte immunophenotype (70% by flow): CD11b, [...] L total hip arthroplasty. He is currently day +395 s/p transplant, s/p 6 cycles of azacitidine and returns to clinic today with c/o new onset rash. Interim History: Khurram was most recently evaluated in [facility] by me on 08/31/16. He underwent L total hip arthroplasty on 09/07/16. States he h ad two days of moderate pain, now symptom free. He is no longer taking oxycodone, maintained on oxycontin BID. Sleeping well, OOB for most of the day. Able to play with his son again. Appetite is good at times but continues to struggle with intermittent nausea. Taking zofr an daily, states this helps at times. Intermittent vomiting, usually in the morning after sl eeping all night and not eating for > 12 hours. He feels he's eating pretty well, maintaini ng hydration. No c/o abd pain, cramping. Also notes progression of his rash, mainly to his back. Intermittently itchy. Would not mind going back on prednisone if it made his rash go away. Anxiety has been a bit worse pre-op and then after due to increased anxiety. Review of Systems Constitutional: Negative for chills, fever and malaise/fatigue. HENT: Negative for headaches, congestion and sore throat. Respiratory: Negative for cough and shortness of breath. Cardiovascular: Negative for chest pain and leg swelling. Gastrointestinal: Positive for nausea and vomiting. Negative for abdominal pain, blood in s tool, diarrhea and melena. Genitourinary: Negative for dysuria and hematuria. Musculoskeletal: Negative for falls, joint pain and myalgias. Skin: Positive for itching and rash. Neurological: Negative for dizziness, tingling, tremors and weakness. All other systems reviewed and are negative. Current Outpatient Prescriptions Medication Sig acetaminophen 325 mg oral tablet Take 1-2 tablets by mouth every four hours as needed. Use this medication to help wean off your stronger opiate medication. DO NOT exceed 4000 mg in a 24 hr period. Indications: Pain acyclovir 800 mg oral tablet Take 1 tablet by mouth two times daily. ALPRAZolam 0.5 mg oral tablet Take 1 tablet by mouth three times daily as needed. Indic ations: Anxiety aspirin EC 325 mg oral tablet,delayed release (DR/EC) Take 1 tablet by mouth once daily . Indications: post-op DVT prevention beclomethasone 1 mg/mL oral suspension (compound) Take 1 mL by mouth four times daily. Shake well and refrigerate. Please give 24 hours notice to compound medication. Discard afte r 14 days. mycophenolate delayed release 360 mg oral tablet,delayed release (DR/EC) Take 2 tablets by mouth two times daily. Indications: gvhd omeprazole 20 mg oral capsule,delayed release(DR/EC) Take 1 capsule by mouth before babak akfast. ondansetron ODT 4 mg oral tablet,disintegrating Dissolve 1 tablet in mouth every eight hours as needed. Indications: Prevention of Post-Operative Nausea and Vomiting oxyCODONE CR 20 mg oral tablet,oral only,ext.rel.12 hr Take 1 tablet by mouth every twe lve hours. Indications: Chronic Pain polyethylene glycol 17 gram/dose oral powder Mix 17 g in liquid and drink once daily as needed (1st line - for no BM for 2 days). Indications: Constipation senna-docusate 8.6-50 mg oral tablet Take 1 tablet by mouth two times daily. Hold for d iarrhea Indications: Constipation tacrolimus 1 mg oral capsule Take 1 capsule by mouth two times daily. Indications: prev ention of GvHD triamcinolone acetonide 0.1 % topical ointment Apply thin film to affected areas twice daily. trimethoprim-sulfamethoxazole 160-800 mg oral tablet Take 1 tablet by mouth twice daily (every Sunday and ). No current facility-administered medications for this visit. No Known Allergies Filed Vitals: 09/25/2016 3:35 PM Weight: 77.7 kg (171 lb 4.8 oz) BP: 109/61 Pulse: 94 Temp: 36.9 C (98.4 F) TempSrc: Oral Resp: 19 SpO2: 99% PainSc: 0 - Zero BMI: 21.41 kg/(m^2) Physical Exam Constitutional: He is well-developed, [...] Skin: Skin is warm and dry. Rash (hyperpigmented poikilodermic rash to back with erythemato us papular rash to BUE) noted. Psychiatric: Mood and affect normal. Vitals reviewed. Lab Results Component Value Date WBC 10.6 09/25/2016 HB 12.9 09/25/2016 HCT 38.4 09/25/2016 PLT 338 09/25/2016 MCV 93.9 09/25/2016 RDW 41.9 09/08/2016 Lab Results Component Value Date BICARB 28 09/25/2016 TBILI 0.3 09/25/2016 CA 9.5 09/25/2016 CL 100 09/25/2016 CR 1.0 09/25/2016 GLU 101 (H) 09/25/2016 AP 146 (H) 09/25/2016 TP 6.7 09/25/2016 BUN 8 09/25/2016 ALB 3.7 09/25/2016 AST 41 09/25/2016 NA 135 09/25/2016 K 4.8 09/25/2016 ALT 55 09/25/2016 Assessment/Plan: 1. 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 CBC WNL with no evidence of disease by peripheral smear. His most recent marrow studies completed 08/31/16 showed a normocellular marrow (30%) with trilineage hemato poiesis, marrow eosinophilia (~15%) and < 2% myeloid blasts. Karyotype 46,XY[20]. VNTR show ed no detectable host cells. 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 --> continue CBC q4 weeks and prn --> no additional marrow studies indicated providing peripheral counts remain stable 2. 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 He initial ly responded but flared during taper. He also developed low-level nausea and abd discomfort concerning for GvHD, empirically treated with oral non-absorbables with resolution. He had t apered prednisone to 10 mg po daily when he developed a rash for which he was seen in the ED in [place] in late 01/21. Prednisone was increased back to 20 mg po daily. Skin bx 02/10/16 showed vaculolar interface mixed dermatitis with eosinophils. DDx included GvHD and drug hyp ersensitivity reaction. Rash resolved with increased dose prednisone. He had tolerated a tap er of steroids to 5 mg po every other day then developed a faint recurrent rash. Prednisone increased to 5 mg po daily on 05/15/16 with rapid resolution of his rash. He tapered off bude sonide, prednisone as of 07/13/16. Continues low dose tacrolimus. Chronic mild nausea, increas ed in late 07/25, with low level transaminitis suspicious for recurrent GvHD. Beclomethasone restarted 08/09/16 with initial resolution of N/V. Now increased again with increasing rash. N o evidence of FLORESITA by PFTs on 09/01/16. --> continue tacrolimus 1 mg bid; adjust dose to maintain a trough level of 5 to 10 --> continue beclomethasone 1 mg po QID --> due to AVN, would prefer not to restart steroids unless pt has bx proven GvHD --> mycophenolate ER 360 mg po BID; if pt tolerates dose, increase to 720 mg po BID next we ek Ped Pre Spirometry Latest Ref Rng & Units 09/01/2016 08/09/2015 FVC PRE 6.30 L 6.71 6.98 FVC PRE (%REF) % 106 110 FEV1 PRE 5.13 L 5.28 5.13 FEV1 PRE (%REF) % 102 99 FEV1/FVC PRE 83 % 79 73 FEV1/FVC PRE (%REF) % 94 88 SHV35-10% PRE 5.09 L/sec 4.64 4.12 CZQ81-34% PRE (%REF) % 91 79 PEF PRE 11.24 L/sec 11.12 8.89 PEF PRE (%REF) % 98 79 3. Fluid, Electrolyte and Nutrition: Appetite remains good intermittently, feels he's eatin g well but continues with intermittent N/V. Weight down 11# over the last week, down 38# ove r the last three months. His electrolytes are reviewed and are within acceptable limits. --> encouraged pt to continue to eat well with several meals/snacks throughout the day --> maintain hydration with goal of 2L calorie containing fluids daily --> if N/V persist, EGD for further evaluation 4. Musculoskeletal: Hx of intermittent L hip pain. MRI 07/25/16 showed bilateral femoral hea d osteonecrosis with subchondral fracture and collapse of weightbearing L femoral head with suspected early cartilage disease. Underwent a total L hip arthroplasty on 09/07/16. --> continue to f/u with Ortho per their recommendations 5. Follow up --> RTC to f/u with me on 10/02/16, sooner prn --> labs at [facility] prior [facility] [place] [address] [facility] Mailcode: [id number] [place] [id number] documented in this enc ounter Plan of [...] Rd | | | | | | [place], [place] | | | | | | [address] | | | | | | [phone] | | | | | | | | +--------+---------+ + + + documented as of this encounter Results TACROLIMUS, WHOLE BLOOD (10/02/2016 8:33 AM PDT) + +-------+ + + + | Component | Value | Ref Range | Performed | Pathologist | | | | | At | Signature | + +-------+ + + + | TACROLIMUS | 6.1 | 5.0 - 15.0 | [facility] | [...] | Test performed by immunoassay using [employer] i2000. . | [facility] | | Samples [...] + | [facility] | [address] | [place] [address] | | | SERVICES, SPECIAL | [address] | | | | IMM + COAG | | | | + + + + + LDH TOTAL, PLASMA (10/02/2016 8:33 AM PDT) + +---------+ + + + | Component | Value | Ref Range | Performed | Pathologist | | | | | At | Signature | + +---------+ + + + | LD TOTAL, | 134 | <=250 U/L | [facility] | | [...] + | [facility] | [address] | [place] [address] | | | SERVICES, CORE | [address] | | | + + + + + BILIRUBIN DIRECT (10/02/2016 8:33 AM PDT) + +---------+ + + + [...] | + + + + + | [facility] | [address] | [place] [address] | | | SERVICES, CORE | [address] | | | + + + + + URIC ACID, PLASMA (10/02/2016 8:33 AM PDT) + +-------+ + + + | Component | Value | Ref Range | Performed | Pathologist | | | | | At | Signature | + +-------+ + + + | URIC ACID, | 4.1 | 3.7 - 8.0 mg/dL | [facility] [...] + | [facility] | [address] | [place] [address] | | | SERVICES, CORE | [address] | | | + + + + + PHOSPHORUS, PLASMA (10/02/2016 8:33 AM PDT) + +-------+ + + + | Component | Value | Ref Range | Performed | Pathologist | | | | | At | Signature | + +-------+ + + + | PHOSPHORUS, | 3.4 | 2.4 - 4.7 mg/dL | [facility] [...] | + + + + + | [facility] | [address] | [place] [address] | | | SERVICES, CORE | [address] | | | + + + + + MAGNESIUM, PLASMA (10/02/2016 8:33 AM PDT) + +-------+ + + + | Component | Value | Ref Range | Performed | Pathologist | | | | | At | Signature | + +-------+ + + + | MAGNESIUM,P | 2.0 | 1.8 - 2.5 mg/dL | [facility] | | | LASMA | | | [...] | + + + + + | [facility] | [address] | [place] [address] | | | SERVICES, CORE | [address] | | | + + + + + COMPLETE METABOLIC SET (NA,K,CL,CO2,BUN,CREAT,GLUC,CA,AST,ALT,BILI TOTAL,ALK PHOS,ALB,PROT TOTAL) (10/02/2016 8:33 AM PDT) + +---------+ + + + | Component | Value | Ref Range | Performed | Pathologist | | | | | At | Signature | + +---------+ + + + | GLUCOSE, | 102 (H) | 60 - 99 mg/dL | [facility] | | | PLASMA | | | LABORATORY | | | (LAB) | | | SERVICES, | | | | | | CORE | | + +---------+ + + + | BUN, PLASMA | 8 | 6 - 20 mg/dL | [facility] | | | (LAB) | | | LABORATORY | | | | | | SERVICES, | | | | | | CORE | | + +---------+ + + + | CREATININE | 0.86 | 0.70 - 1.30 | [facility] | | | PLASMA | | mg/dL | LABORATORY | | | (LAB) | | | SERVICES, | | | | | | CORE | | + +---------+ + + + | EGFR | >60 | >60 mL/min | [facility] | | | - | | | LABORATORY | | | [place] | | | SERVICES, | | | | | | CORE | | + +---------+ + + + | EGFR NON | >60 | >60 mL/min | [facility] | | | -JOANNE | | | LABORATORY | | | [facility]ICAN | | | SERVICES, | | | | | | CORE | | + +---------+ + + + | SODIUM, | 140 | 136 - 145 | [facility] | [...] + + + | TOTAL CO2, | 28 | 21 - 32 mmol/L | [facility] [...] +---------+ + + + | CALCIUM(ALB | 10.0 | 8.6 - 10.2 | [facility] | [...] +---------+ + + + | TOTAL | 6.4 | 6.4 - 8.2 g/dL | [facility] | | | PROTEIN, | | | LABORATORY | | | PLASMA | | | SERVICES, | | | (LAB) | | | CORE | | + +---------+ + + + | ALBUMIN, | 3.4 (L) | 3.5 - 4.7 g/dL | [facility] | | | PLASMA | | | LABORATORY | | | (LAB) | | | SERVICES, | | | | | | CORE | | + +---------+ + + + | ALK PHOS | 140 (H) | 53 - 128 U/L | [facility] | | | | | | LABORATORY | | | | | | SERVICES, | | | | | | CORE | | + +---------+ + + + | AST(SGOT) | 35 | <=41 U/L | [facility] | | | | | | LABORATORY | | | | | | SERVICES, | | | | | | CORE | | + +---------+ + + + | ALT (SGPT) | 42 | <=60 U/L | [facility] | | [...] +---------+ + + + | ANION | 8 | 4 - 11 mmol/L | [facility] [...] | + + + + + | [facility] | [address] | [place] [address] | | | SERVICES, CORE | [address] | | | + + + + + documented in this encounter Visit Diagnoses + + | Diagnosis | + + | 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
--- OUTSIDE RECORDS SUMMARY | ~2019-05-17 | XMS | Encounter Summary ---
Demographics + + + | Address | [address] | | | [place] [address] | + + + | Home Phone | | + + + | Preferred Language | Unknown | + + + | Marital Status | | + + + | Sikh Affiliation | SPI | + + + [...] Team Providers + +------+ + | Care Rn Emergency Room Name | Role | Phone | + +------+ + | No Pcp Per Patient | PCP | Unavailable | + +------+ + Encounter Details +--------+---------+ + + + | Date | Type | Department | Care Team | Description | +--------+---------+ + + + | 01/18/ | Office | [facility] | Yari Garcia MD | 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 | | | | Malignancies at | [address] | remission (HCC) | | | | [facility] | [place], [place] | (Primary Dx) | | | | [address] | [address] | | | | | [place] Mailcode: | [phone] | | | | | [id number] | | | | | | [place], | | | | | | [place] [address] | | | | | | [phone] | | | +--------+---------+ + + + [...] + + + | Blood Pressure | 120/68 | 01/18/2017 8:35 AM | | | | | PDT | | + + + + + | Pulse | 71 | 01/18/2017 8:35 AM | | | | | PDT | | + + + + + | Temperature | 36.8 C (98.2 F) | 01/18/2017 8:35 AM | | | | | PDT | | + + + + + | Respiratory Rate | 16 | 01/18/2017 8:35 AM | | | | | PDT | | + + + + + | Oxygen Saturation | 99% | 01/18/2017 8:35 AM | | | | | PDT | | + + + + + | Inhaled Oxygen | - | - | | | Concentration | | | | + + + + + | Weight | 81.2 kg (179 lb 0.2 | 01/18/2017 8:35 AM | | | | oz) | PDT | | + + + + + | Height | - | - | | + + + + + | Body Mass Index | 22.38 | 10/18/2016 10:05 AM | | | | | PDT | | + + + + + documented in this encounter Patient Instructions Patient Instructions Yari Garcia MD - 01/18/2017 8:25 AM PDTFormatting of this note mi javiert be different from the original. Khurram- You are doing really well. Keep up the good work. Stay on the same prednisone dose of 20mg daily alternating with 10 mg daily. Continue to be very cautious about the sun. You should see the dentist after you get back and have visits every 6 months. You should see a therapist/counselor about the anxiety - cognitive behavioral therapists ca n be useful for managing panic attacks and anxiety. We should see you back in 4 weeks with labs and a visit. You should have a CBC and a chemistry panel with liver labs done locally at [facility] (in [place]) in 2 weeks. Please have the results sent to us. Please call the following day after you have labs done to have the results reviewed. Call our mission analyst number. If you have any issues at home, please call our triage number. Start ursodiol 300 mg twice daily. I will send this in to [facility] in [place]. Avoid tylenol containing products. Diagnostic Visit on 01/18/2017 Component Date Value WBC POC 01/18/2017 7.8 RBC POC 01/18/2017 4.02* HGB POC 01/18/2017 13.2* HCT POC 01/18/2017 40.3* MCV POC 01/18/2017 100.2* MCH POC 01/18/2017 32.8* MCHC POC 01/18/2017 32.8 RDW SD, POC 01/18/2017 50.1* PLT POC 01/18/2017 199 MPV POC 01/18/2017 7.9* NEUTROPHIL% POC 01/18/2017 65.5 LYMPH% POC 01/18/2017 22.2 MONO %, POC 01/18/2017 10.3* EOS %, POC 01/18/2017 1.7 BASO %, POC 01/18/2017 0.3 NEUTROPHIL# POC 01/18/2017 5.1 LYMPH# POC 01/18/2017 1.7 MONO #, POC 01/18/2017 0.8 EOS #, POC 01/18/2017 0.1 BASO #, POC 01/18/2017 0.0 CBC COMMENT, POC 01/18/2017 Imm Gran. Lab Results Component Value Date BICARB 26 01/18/2017 TBILI 0.6 01/18/2017 CA 9.2 01/18/2017 CL 103 01/18/2017 CR 0.9 01/18/2017 GLU 104 (H) 01/18/2017 AP 65 01/18/2017 TP 6.2 01/18/2017 BUN 11 01/18/2017 ALB 3.6 01/18/2017 AST 77 (H) 01/18/2017 NA 135 01/18/2017 K 4.2 01/18/2017 ALT 152 (H) 01/18/2017 documented in this encounter Progress Notes Yari Garcia MD - 01/18/2017 8:25 AM PDT 01/18/17 - 511 days post [facility] MD: Yari Garcia MD Primary Oncologist: Yari Garcia MD Diagnosis: AMML, primary refractory Transplant Date: 08/27/15 Donor: MMURD (DPB1 permissive antigen mismatch, male, [id number]) Identifying Data: Khurram Kelly is a 26 [...] his L ankle. He was evaluated at [facility] ED on 06/[address] angiogram negative [...] arthralgias, recurrent fevers, pericarditis and CBC abnl, h e was referred to Oncology for additional evaluation. Marrow studies completed on 05/19/15 s howed a hypercellular marrow (80-90%) with 86% of blast equivalents, comprised of myeloblast s, monoblasts and promonocytes. Concurrent flow cytometry detected 23% myeloid blasts and 60 % immature monocytic cells supporting this diagnosis. 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 He was referred to [facility] for further evaluation and man agement of his newly dx'd AML. Pt was admitted to [facility] on 05/26/15. Peripheral blood was sent for [...] CD34, variable CD56, variable CD117, and dim [id number] mickey; promonocyte immunophenotype (70% by flow): CD11b, [...] total hip arthroplasty. He is currently day +511 s/p transplant, s/p 6 cyclesof azacitidine and returns to clinic today for scheduled follow-up. Interim History: Khurram returns to clinic today for ongoing follow up after returning f rom a trip to [place] and prior to moving back home. He is feeling well - had a good tri p to [place] [employer] where he stayed with his in-laws. Ate well and gained weight, continues to wor k on increasing exercise and endurance. No nausea/vomiting. No loose stools. Hip is doing well - no pain - able to move without discomfort -no limitation in ROM. Skin has been normal - no recurrence of rash or new sclerotic tissue. Anxiety adequately managed with xanax. Planning on seeing a counselor when he moves back [facility], [place]. Has not resubmitted a sperm sample to reassess for fertility. NO recent fevers/chills or infectious symptoms. Review of Systems Constitutional: Negative for chills, fever and malaise/fatigue. HENT: Negative for headaches, congestion and sore throat. Respiratory: Negative for cough and shortness of breath. Cardiovascular: Negative for chest pain and leg swelling. Gastrointestinal: Negative for abdominal pain, diarrhea, nausea and vomiting. Genitourinary: Negative for dysuria. Musculoskeletal: Negative for joint pain and myalgias. Skin: Negative for rash. Neurological: Negative for dizziness, tingling, tremors and weakness. Psychiatric/Behavioral: The patient is not nervous/anxious (well controlled providing he co ntinues current dose of xanax). Current Outpatient Prescriptions Medication Sig acyclovir 800 mg oral tablet Take 1 tablet by mouth two times daily. ALPRAZolam 0.5 mg oral tablet Take 2 tablets by mouth three times daily as needed. Kimberly cations: anxiety fluconazole 200 mg oral tablet Take 2 tablets by mouth every seven days. After completi on of 21 day course, take once weekly, 400 mg. Indications: fungal infection mycophenolate delayed release 360 mg oral tablet,delayed release (DR/EC) Take 2 tablets by mouth two times daily. Indications: gvhd omeprazole 20 mg oral capsule,delayed release(DR/EC) Take 1 capsule by mouth before babak akfast. predniSONE 10 mg oral tablet 20 mg by mouth every other day alternating with 10 mg by m outh every other day tacrolimus 0.5 mg oral capsule Take 1 mg by mouth every morning and 0.5 mg by mouth ne ry evening. Indications: GVHD tacrolimus 1 mg oral capsule Take 1 mg by mouth every morning and 0.5 mg by mouth every evening. Indications: GVHD triamcinolone acetonide 0.1 % topical ointment Apply thin film to affected areas twice daily. trimethoprim-sulfamethoxazole 160-800 mg oral tablet Take 1 tablet by mouth twice daily (every Sunday and ). zolpidem SR 12.5 mg oral tablet,ext release multiphase Take 1 tablet by mouth once afia y at bedtime as needed for sleep. Indications: Insomnia No current facility-administered medications for this visit. No Known Allergies There were no vitals filed for this visit. Physical Exam Constitutional: He is well-developed, well-nourished, [...] Psychiatric: Mood and affect normal. Vitals reviewed. Diagnostic Visit on 01/18/2017 Component Date Value WBC POC 01/18/2017 7.8 RBC POC 01/18/2017 4.02* HGB POC 01/18/2017 13.2* HCT POC 01/18/2017 40.3* MCV POC 01/18/2017 100.2* MCH POC 01/18/2017 32.8* MCHC POC 01/18/2017 32.8 RDW SD, POC 01/18/2017 50.1* PLT POC 01/18/2017 199 MPV POC 01/18/2017 7.9* NEUTROPHIL% POC 01/18/2017 65.5 LYMPH% POC 01/18/2017 22.2 MONO %, POC 01/18/2017 10.3* EOS %, POC 01/18/2017 1.7 BASO %, POC 01/18/2017 0.3 NEUTROPHIL# POC 01/18/2017 5.1 LYMPH# POC 01/18/2017 1.7 MONO #, POC 01/18/2017 0.8 EOS #, POC 01/18/2017 0.1 BASO #, POC 01/18/2017 0.0 CBC COMMENT, POC 01/18/2017 Imm Gran. SODIUM, [facility] 01/18/2017 135 POTASSIUM, POC 01/18/2017 4.2 TOTAL CO2, [facility] 01/18/2017 26 CHLORIDE, POC 01/18/2017 103 GLUCOSE, POC 01/18/2017 104* CALCIUM TOTAL, [facility] 01/18/2017 9.2 BUN, POC 01/18/2017 11 CREATININE, POC 01/18/2017 0.9 ALK PHOS, [facility] POC 01/18/2017 65 ALT, [facility] POC 01/18/2017 152* AST, [facility] 01/18/2017 77* BILIRUBIN TOTAL, [facility] POC 01/18/2017 0.6 ALBUMIN, [facility] 01/18/2017 3.6 PROTEIN TOTAL, [facility] 01/18/2017 6.2 MAGNESIUM,PLASMA 01/18/2017 2.2 LD TOTAL, PLASMA 01/18/2017 144 LD CMNT 01/18/2017 No Hemo PHOSPHORUS, PLASMA (LAB) 01/18/2017 4.0 URIC ACID, PLASMA (LAB) 01/18/2017 4.9 ALBUMIN, PLASMA (LAB) 01/18/2017 3.7 BILIRUBIN TOTAL 01/18/2017 0.4 BILIRUBIN DIRECT 01/18/2017 0.1 ALK PHOS 01/18/2017 74 AST(SGOT) 01/18/2017 77* ALT (SGPT) 01/18/2017 190* TOTAL PROTEIN, PLASMA (L* 01/18/2017 6.5 AST CMNT 01/18/2017 No Hemo BILI T CMNT 01/18/2017 No Hemo BILI D CMNT 01/18/2017 No Hemo BILIRUBIN DIRECT 01/18/2017 0.1 BILI D NT 01/18/2017 No Hemo TACROLIMUS (FK 506) 01/18/2017 3.0* Assessment/Plan: 1. Hematology: Khurram Kelly is currentlyday +511 s/p tBuCy-conditioned unr elated donor [facility]SC transplant for primary refractory AML, s/p 6 cycles of azacitidine for pos t-transplant relapse. His most recent marrow studies completed 08/31/16 showed a normocellula r marrow (30%) with trilineage hematopoiesis, marrow eosinophilia (~15%) and <2% myeloid b lasts. Karyotype 46,XY[20]. VNTR showed no detectable host cells. 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 CBC is normal aside from v gloria mild macrocytic anemia. He continues without evidence of disease by peripheral smear. --> continue CBC q2-4 weeks and prn --> no additional marrow studies indicated providing peripheral counts remain stable 2. 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 He initially responded but flared during taper. He also developed low-level nausea and abd discomfort concerning for GvHD, emp irically treated with oral non-absorbables with resolution. - He had tapered prednisone to 10 mg po daily when he developed a rash for which he was see n in the ED in [place] in late 01/21. Prednisone was increased back [...] esophagitis and mild GvHD of the rectum. - TODAY: asymptomatic though with slight progression in transaminitis GvHD. Continue MMF E R, tacrolimus and prednisone 20 mg every other day alt with 10 mg every other day -->no change in IST at this time --> continue to f/u with ophthalmology per their recommendations --> resume ursodiol 300 mg bid --> avoid ETOH, acetaminophen and nephrotoxins 3. Infectious Disease: Afebrile without localizing s/s infection. He continues prophylact ic acyclovir and bactrim. Completed a 3-week course of fluconazole 400 mg po daily on 11/12/16 for findings of esophageal candidiasis His most recent immune reconstitution panel [facility] 08/31/16 showed normal total T cells with relative decrease in CD4+ margarita cells, normal total NK cells, normal total B cells with relative decrease in non-switched memory B cells a nd minimal immune activation. CD4 count 420. Continues post-transplant vaccines -->continue prophylactic antimicrobials --> next vaccines due 04/24 4. Fluid, Electrolyte and Nutrition: Appetite is good, feels he's eating well and regaini ng weight. Adequate po fluid intake. No c/o N/V/D. Weight continues to uptrend with incre ased po intake. His electrolytes are reviewed and are within acceptable limits. --> continue a well balanced diet --> maintain adequate hydration 5. Musculoskeletal: Hx of intermittent L hip pain. MRI 07/25/16 showed bilateral femoral hea d osteonecrosis with subchondral fracture and collapse of weightbearing L femoral head with suspected early cartilage disease. Underwent a total L hip arthroplasty on 09/07/16. Ambulatin g without assistive device. Pain well controlled off analgesics. Most recently evaluated by Dr. Jeffers on 10/18/16, feels he's doing very well post-surgery. --> continue to f/uwith Lobo Jeffers MD per his recommendsations 6. Psychosocial: Hx anxiety, well controlled with current xanax dosing. 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 Traveling to [facility] 01/02-01/17/17 w ith plans to move back to [place] tomorrow --> recommmended cognitive behavioral therapy and peer support groups as able -->continue to attend [facility] support group as able --> continue xanax 1 mg po TID; if pt decides he wants to taper off, recommended very slow taper by decreasing to a total of five 0.5 mg tabs/day for several weeks, then four, etc. 7. Follow up --> labs locally in 2 weeks in [place] at [facility] (ordered faxed) --> F/u at [facility] in 4 weeks, sooner if interval complications. Yari Garcia MD, MS [employer] Supervisordiagnostic radiologist [facility] [address] [place] [address] documented in this enc ounter Plan of [...] [address] | | | | | | [place], [place] | | | | | | [address] | | | | | | [phone] | | | | | | | | +--------+---------+ + + + documented as of this encounter Results TACROLIMUS, WHOLE BLOOD (01/18/2017 8:34 AM PDT) + +---------+ + + + | Component | Value | Ref Range | Performed | Pathologist | | | | | At | Signature | + +---------+ + + + | TACROLIMUS | 3.0 (L) | 5.0 - 15.0 | [facility] [...] | Test performed by immunoassay using [employer] Personnel Selection i2000. . | [facility] | | Samples [...] [facility] | [address] | [place] [address] | | | SERVICES, SPECIAL | [address] | | | | IMM + COAG | | | | + + + + + BILIRUBIN DIRECT (01/18/2017 8:34 AM PDT) + +---------+ + + + | Component | Value | Ref Range | Performed | Pathologist | | | | | At | Signature | + +---------+ + + + | BILIRUBIN | 0.1 | 0.0 - 0.3 mg/dL | [facility] | | | DIRECT | | | LABORATORY | | | | | | SERVICES, | | | | | | CORE | | + +---------+ + + + | MILTONI D CMNT | No Hemo | | [...] [facility] | [address] | [place] [address] | | | SERVICES, CORE | [address] | | | + + + + + LIVER SET (AST,ALT,BILI TOTAL,BILI DIRECT,ALK PHOS,ALB,PROT TOTAL) (01/18/2017 8:34 AM PDT ) + +---------+ + + + | Component | Value | Ref Range | Performed | Pathologist | | | | | At | Signature | + +---------+ + + + | ALBUMIN, | 3.7 | 3.5 - 4.7 g/dL | [facility] [...] +---------+ + + + | BILIRUBIN | 0.1 | 0.0 - 0.3 mg/dL | [facility] | | | DIRECT | | | LABORATORY | | | | | | SERVICES, | | | | | | CORE | | + +---------+ + + + | ALK PHOS | 74 | 53 - 128 U/L | [facility] [...] + + + | ALT (SGPT) | 190 (H) | <=60 U/L | [facility] | | | | | | LABORATORY | | | | | | SERVICES, | | | | | | CORE | | + +---------+ + + + | TOTAL | 6.5 | 6.4 - 8.2 g/dL | [facility] [...] [facility] | [address] | [place] [address] | | | SERVICES, CORE | [address] | | | + + + + + URIC ACID, PLASMA (01/18/2017 8:34 AM PDT) + +-------+ + + + | Component | Value | Ref Range | Performed | Pathologist | | | | | At | Signature | + +-------+ + + + | URIC ACID, | 4.9 | 3.7 - 8.0 mg/dL | [facility] [...] | + + + + + | [facility] | [address] | [place] [address] | | | SERVICES, CORE | [address] | | | + + + + + PHOSPHORUS, PLASMA (01/18/2017 8:34 AM PDT) + +-------+ + + + | Component | Value | Ref Range | Performed | Pathologist | | | | | At | Signature | + +-------+ + + + | PHOSPHORUS, | 4.0 | 2.4 - 4.7 mg/dL | [facility] [...] [facility] | [address] | [place] [address] | | | SERVICES, INDRA | [address] | | | + + + + + LDH TOTAL, PLASMA (01/18/2017 8:34 AM PDT) + +---------+ + + + | Component | Value | Ref Range | Performed | Pathologist | | | | | At | Signature | + +---------+ + + + | LD TOTAL, | 144 | <=250 U/L | [facility] | | [...] | + + + + + | [facility] | [address] | [place] [address] | | | SERVICES, CORE | [address] | | | + + + + + documented in this encounter Visit Diagnoses + + | Diagnosis | + + | 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
--- OUTSIDE RECORDS SUMMARY | ~2019-05-17 | XMS | Encounter Summary ---
Demographics + + + | Address | [address] | | | [place] [address] | + + + | Home Phone | | + + + | Preferred Language | Unknown | + + + | Marital Status | | + + + | Rastafarian Affiliation | SPI | + + + [...] Team Providers + +------+ + | Care Pupil Personnel Worker Name | Role | Phone | + +------+ + | Pending Pcp Addition | PCP | Unavailable | + +------+ + Encounter Details +--------+ + + + + | Date | Type | Department | Care Team | Description | +--------+ + + + + | 07/08/ | Document-Sc | UNKNOWN DEPARTMENT | Unknown . | | | 2014 | anned | [address] | | | | | [address] | | | | | | [place], [place] | | | | | | [address] | | | +--------+ + + + [...] 2019 | Visit | Malignancy | [address] [facility] | | | | | | [address] | | | | | | [place] | | | | | | [address] | | | | | | [phone] | | | | | | | | +--------+---------+ + + + documented as of this encounter Visit Diagnoses Not on filedocumented in this encounter"
--- OUTSIDE RECORDS SUMMARY | ~2019-05-17 | XMS | Encounter Summary ---
Demographics + + + | Address | [address] | | | [place] [address] | + + + | Home Phone | | + + + | Preferred Language | Unknown | + + + | Marital Status | | + + + | Tenriism Affiliation | SPI | + + + | Race | White | + + + | Ethnic Group | Not or | + + + Author + + + | Author | [facility] | + + + | Organization | [facility] | + + + | Address | Unknown | + + + | Phone | Unavailable | + + + Support + + +---------+ + | Name | Relationship | Address | Phone | + + +---------+ + | Gabriel Kelly | ECON | Unknown | | + + +---------+ + Care Team Providers + +------+ + | Care A P Mechanic Name | Role | Phone | + +------+ + | Zayda Hinton | PCP | | + +------+ + Reason for Visit Office Visit - E/M Services (Routine) +--------+---------+ [...] ic leukemia, | [address] | [address] | | | | | not having | [address] | Mailcode: | | | | | achieved | [facility], [place] | [id number] | | | | | remission | [address] | [address] | | | | | | Phone: | Pavilion | | | | | Procedures | [phone] | [place], [place] | | | | | Post BMT | Fax: | [address] | | | | | Auth to | [phone] | Phone: | | | | | included | | [phone] | | | | | facility, | | Fax: | | | | | diagnostics, | | [phone] | | | | | office | | | | | | | visits and | | | | | | | surgery | | | +--------+---------+ + + + + Encounter Details +--------+ + + + + | Date | Type | Department | Care Team | Description | +--------+ + + + + | 06/18/ | Hospital | Center for | [facility], [address] [address] | | | 2017 | Encounter | Hematologic | [address] | | | | | Malignancies at [facility] | Road [place], [place] | | | | | [address] | [address] | | | | | [address] Mailcode: | | | | | | [facility] [address] | | | | | | Pavilion [place], | | | | | | [place] [address] | | | | | | [phone] | | | +--------+ + + + [...] documented as of this encounter Progress Notes Jhon Castillo MA - 06/18/2017 11:59 PM PST ActHIB from pharmacy injected IM in left de ltoid per orders. No reaction noted. See injection section for details. Hepatitis A -Hepatitis B ( [place]) from pharmacy injected IM in left deltoid per orders . No reaction noted. See injection section for details. Human papillomavirus from pharmacy injected IM in right deltoid per orders. No reaction noted. See injection section for details. Poliovirous from pharmacy injected subcutaneously in left arm per orders. No reaction no edward. See injection section for details. Tetanus-diphtheria toxoids from pharmacy injected IM in right deltoid per orders. No val ction noted. See injection section for details. Jhon Castillo MA do cumented in this encounter Plan of Treatment +--------+---------+ [...] 2019 | Visit | Malignancy | [address] [facility] | | | | | | [address] | | | | | | [place], [place] | | | | | | [address] | | | | | | [phone] | | | | | | | | +--------+---------+ + + + documented as of this encounter Procedures + +--------+ + + + | Procedure Name | Priori | Date/Time | Associated Diagnosis | Comments | | | ty | | | | + +--------+ + + + | CBC+DIFF,POC | Routin | 06/18/2017 | S/P allogeneic | Results for this | | | e | 1:30 PM | bone marrow | procedure are in the | | | | PST | transplant (HCC) | results section. 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) | | + +--------+ + + + | BMP + MAG, POC CHM | Routin | 06/18/2017 | S/P allogeneic | Results for this | | | e | 1:26 PM | bone marrow | procedure are in the | | | | PST | transplant (HCC) | results section. 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) | | + +--------+ + + + | LIVER SET | Urgent | 06/18/2017 | S/P allogeneic | Results for this | | (AST,ALT,BILI | | 1:11 PM | bone marrow | procedure are in the | | TOTAL,BILI | | PST | transplant (HCC) | results section. | | DIRECT,ALK | | | Acute myelomonocytic | | | PHOS,ALB,PROT TOTAL) | | | leukemia in | | | | | | remission (HCC) | | + +--------+ + + + documented in this encounter Results CBC+DIFF,POC (06/18/2017 1:30 PM PST) + + + + + + | Component | Value | Ref Range | Performed | Pathologist | | | | | At | Signature | + + + + + + | WBC POC | 9.3 | 3.5 - 10.8 | [facility] - | | | | | 10*3/uL | [place] | | | | | | [facility] | | | | | | OF CARE | | | | | | TESTS | | + + + + + + | RBC POC | 4.55 | 4.50 - 6.00 | [facility] - | | | | | 10*6/uL | [facility] | | | | | | [facility] | | | | | | OF CARE | | | | | | TESTS | | + + + + + + | HGB POC | 14.6 | 13.5 - 17.5 | [facility] - | | | | | g/dL | [facility] | | | | | | [facility], POINT | | | | | | OF CARE | | | | | | TESTS | | + + + + + + | HCT POC | 43.1 | 41.0 - 53.0 % | [facility] - | | | | | | [place] | | | | | | [facility] | | | | | | OF CARE | | | | | | TESTS | | + + + + + + | MCV POC | 94.7 | 80.0 - 96.0 fL | [facility] - | | | | | | [place] | | | | | | [facility] POINT | | | | | | OF CARE | | | | | | TESTS | | + + + + + + | MCH POC | 32.1 | 28.5 - 32.3 pg | [facility] [...] | | | | | g/dL | [place] | | | | | | [facility] | | | | | | OF CARE | | | | | | TESTS | | + + + + + + | RDW SD, POC | 44.4 | 35.1 - 46.3 fL | [facility] - | | | | | | [place] | | | | | | [facility] | | | | | | OF CARE | | | | | | TESTS | | + + + + + + | PLT POC | 247 | 150 - 400 | [facility] - | | | | | 10*3/uL | [facility] | | | | | | [facility] | | | | | | OF CARE | | | | | | TESTS | | + + + + + + | MPV POC | 8.2 (L) | 9.7 - 12.3 fL | [facility] - | | | | | | [place] | | | | | | [facility] | | | | | | OF CARE | | | | | | TESTS | | + + + + + + | NEUTROPHIL% | 66.7 | 50.0 - 70.0 % | [facility] - | | | POC | | | [facility] | | | | | | [facility], POINT | | | | | | OF CARE | | | | | | TESTS | | + + + + + + | LYMPH% POC | 26.3 | 18 - 42 % | [facility] - | | | | | | [facility] | | | | | | [facility], POINT | | | | | | OF CARE | | | | | | TESTS | | + + + + + + | MONO %, POC | 6.0 | 3.5 - 9.0 % | [facility] - | | | | | | [place] | | | | | | [facility], POINT | | | | | | OF CARE | | | | | | TESTS | | + + + + + + | EOS %, POC | 0.8 (L) | 1.0 - 3.0 % | [...] [place] | | | | | | [facility] POINT | | | | | | OF CARE | | | | | | TESTS | | + + + + + + | NEUTROPHIL# | 6.2 | 1.8 - 7.7 | [facility] - | | | POC | | 10*3/uL | [facility] | | | | | | [facility] | | | | | | OF CARE | | | | | | TESTS | | + + + + + + | LYMPH# POC | 2.4 | 1.0 - 4.8 | [facility] - [...] [place] | | | | | | [facility] POINT | | | | | | OF CARE | | | | | | TESTS | | + + + + + + | EOS #, POC | 0.1 | 0.0 - 0.5 | [facility] - [...] [place] | | | | | | [facility] POINT | | | | | | OF CARE | | | | | | TESTS | | + + + + + + | CBC | Atyp Lymph. | | [facility] - | | | [...] S[facility] | [address] | [place], [place] | | | [facility] OF CARE | [address] | [address] | | | TESTS | | | | + + + + + BMP + MAG POC CHM (06/18/2017 1:26 PM PST) + +---------+ + + + | Component | Value | Ref Range | Performed | Pathologist | | | | | At | Signature | + +---------+ + + + | SODIUM, POC | 143 | 134 - 143 | [facility] - [...] +---------+ + + + | CHLORIDE, | 102 | 97 - 108 mmol/L | [facility] - | | | POC | | | [facility] | | | | | | [facility] | | | | | | OF CARE | | | | | | TESTS | | + +---------+ + + + | GLUCOSE, | 105 (H) | 70 - 99 mg/dL | [facility] - | | | POC | | | [facility] | | | | | | [facility] | | | | | | OF CARE | | | | | | TESTS | | + +---------+ + + + | CALCIUM | 9.8 | 8.6 - 10.2 | [facility] - | | | TOTAL, POC | | mg/dL | [facility] | | | | | | [facility] | | | | | | OF CARE | | | | | | TESTS | | + +---------+ + + + | BUN, POC | 11 | 6 - 20 mg/dL | [facility] [...] + + + | LDH, POC | 333 (H) | 0 - 206 U/L | [facility] - | | | | | | [place] | | | | | | [facility] | | | | | | OF CARE | | | | | | TESTS | | + +---------+ + + + | MAGNESIUM, | 2.1 | 1.6 - 2.6 mg/dL | [facility] - | | | [...] | + + + + + | [facility] [place] | [address] | [place], [place] | | | [facility] POINT OF CARE | [address] | [address] | | | TESTS | | | | + + + + + LIVER SET (AST,ALT,BILI TOTAL,BILI DIRECT,ALK PHOS,ALB,PROT TOTAL) (06/18/2017 1:11 PM PST ) + +---------+ + + + | [...] + + + | ALK PHOS | 100 | 53 - 128 U/L | [facility] | | | | | | LABORATORY | | | | | | SERVICES, | | | | | | CORE | | + +---------+ + + + | AST(SGOT) | 29 | <=41 U/L | [facility] | | | | | | LABORATORY | | | | | | SERVICES, | | | | | | CORE | | + +---------+ + + + | ALT (SGPT) | 52 | <=60 U/L | [facility] | | | | | | LABORATORY | | | | | | SERVICES, | | | | | | CORE | | + +---------+ + + + | TOTAL | 7.6 | 6.4 - 8.2 g/dL | [facility] [...] | + + + + + | [facility] | [address] | [place] [address] | | | SERVICES, CORE | [address] | | | + + + + + documented in this encounter Visit Diagnoses + + | Diagnosis | + + | 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HCC) Bone marrow replaced by transplant | + + | 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
--- OUTSIDE RECORDS SUMMARY | ~2019-05-17 | XMS | Encounter Summary ---
Demographics + + + | Address | [address] | | | [place] [address] | + + + | Home Phone | | + + + | Preferred Language | Unknown | + + + | Marital Status | | + + + | Yazidism Affiliation | SPI | + + + [...] Team Providers + +------+ + | Care Frog Or Oyster Farmworker Name | Role | Phone | + +------+ + | Zayda Hinton | PCP | | + +------+ + Encounter Details +--------+ + + + + | Date | Type | Department | Care Team | Description | +--------+ + + + + | 09/25/ | Pharmacy | Specialty Pharmacy | | | | 2016 | Visit | Services [address] | | | | | | [address] | | | | | | [place], [place] | | | | | | [address] | | | | | | [phone] | | | +--------+ + + + [...] [address] | | | | | | [place], [place] | | | | | | [address] | | | | | | [phone] | | | | | | | | +--------+---------+ + + + documented as of this encounter Visit Diagnoses Not on filedocumented in this encounter"
--- OUTSIDE RECORDS SUMMARY | ~2019-05-17 | XMS | Encounter Summary ---
Demographics + + + | Address | [address] | | | [place] [address] | + + + | Home Phone | | + + + | Preferred Language | Unknown | + + + | Marital Status | | + + + | Synagogue Affiliation | SPI | + + + | Race | White | + + + | Ethnic Group | Not or | + + + Author + + + | Author | [facility] | + + + | Organization | [facility] | + + + | Address | Unknown | + + + | Phone | Unavailable | + + + Support + + +---------+ + | Name | Relationship | Address | Phone | + + +---------+ + | Gabriel Kelly | ECON | Unknown | | + + +---------+ + Care Team Providers + +------+ + | Care Label Maker Name | Role | Phone | + +------+ + | Pending Pcp Addition | PCP | Unavailable | + +------+ + Reason for Visit + + + | Reason | Comments | + + + | Chemotherapy | | + + + Benefits Check [...] | | | | | | | [address] | | | | | | | [address] | | | | | | | [address] [place], | | | | | | | [place] | | | | | | | [address] | | | | | | | Phone: | | | | | | | [phone] | | | | | | | Fax: | | | | | | | [phone] | +--------+--------+ + + + + Encounter Details +--------+---------+ + + + | Date | Type | Department | Care Team | Description | +--------+---------+ + + + | 03/22/ | Office | Center for | Aspen Cummins FNP | S/P allogeneic bone | | 2016 | Visit | Hematologic | [address] [facility] | marrow transplant | | | | Malignancies at | [address] | (HCC) (Primary Dx); | | | | [address] | [place], [place] | Acute myeloid | | | | [address] [facility] | [address] | leukemia (AML), M4 | | | | [address] Mailcode: | [phone] | (HCC)- primary | | | | [facility] [place] | | induction failure | | | | [facility] [place], | | | | | | [place] [address] | | | | | | [phone] | | | +--------+---------+ + + + [...] + + + | Blood Pressure | 112/72 | 03/22/2016 9:26 AM | | | | | PDT | | + + + + + | Pulse | 68 | 03/22/2016 9:26 AM | | | | | PDT | | + + + + + | Temperature | 36.6 C (97.8 F) | 03/22/2016 9:26 AM | | | | | PDT | | + + + + + | Respiratory Rate | 16 | 03/22/2016 9:26 AM | | | | | PDT | | + + + + + | Oxygen Saturation | 99% | 03/22/2016 9:26 AM | | | | | PDT | | + + + + + | Inhaled Oxygen | - | - | | | Concentration | | | | + + + + + | Weight | 99.8 kg (220 lb 0.3 | 03/22/2016 9:26 AM | | | | oz) | PDT | | + + + + + | Height | - | - | | + + + + + | Body Mass Index | 27.94 | 01/25/2016 8:24 AM | | | | | PDT | | + + + + + documented in this encounter Patient Instructions Patient Instructions Aspen Cummins FNP - 03/22/2016 10:08 AM PDT1. Decrease prednisone to 20 mg by mouth every other day 2. Try yoga to strengthen your back muscles, stretching 3. There's a yoga class for people recovering from chemo. It's free once a week but it's i n [place]. I've given you information for that if you're interested 4. I've also given you information for the AYA support group which you may find helpful 5. Return to clinic for your last doses of azacitidine tomorrow and Sunday. 6. Return to clinic to follow up with Yari Garcia MD on , 03/30/16 or sooner as zaki shin. documented in this encounter Progress Notes Aspen Cummins FNP - 03/21/2016 7:58 AM PDT 03/22/2016 [facility] CHM MD: Yari Garcia MD Primary Oncologist: Yari Garcia MD Diagnosis: AMML, primary refractory Transplant Date: 08/27/15 Donor: MM URD (DPB1 permissive antigen mismatch, male, [id number]) Identifying Data: Khurram Kelly is a 25 [...] his L ankle. He was evaluated at [facility] ED on 06/[address] angiogram negative [...] acute myelomonocytic leukemia. He was referred to [facility] for further evaluation and man agement of his newly dx'd AML. Pt was admitted to [facility] on 05/26/15. Peripheral blood was sent [...] CD34, variable CD56, variable CD117, and dim [id number] mickey; promonocyte immunophenotype (70% by flow): CD11b, [...] durin g taper. He is currently day +208 s/p transplant, day 3, c6 of azacitidine and returns to clinic tod ay for scheduled follow-up. Interim History: Khurram was most recently evaluated in [facility] by me on 03/15/16. Feeling well today, tolerating azacitidine without complaints aside from stable intermittent nausea. Does not require antiemetics. Appetite is good, eati ng well. Notes low back pain over the last 3-4 weeks. Tried acetaminophen, ibuprofen and Tereas ve without relief. Notes pain is a 2/10 at rest, up to 5/10 with activity. Denies c/o leg p ain, nerve pain associated with back pain. Review of Systems Constitutional: Negative for fever, chills and malaise/fatigue. HENT: Negative for headaches, congestion and sore throat. Respiratory: Negative for cough and shortness of breath. Cardiovascular: Negative for chest pain and leg swelling. Gastrointestinal: Negative for nausea, vomiting, abdominal pain and diarrhea. Genitourinary: Negative for dysuria. Musculoskeletal: Positive for back pain. Negative for myalgias and falls. Skin: Negative for rash. Neurological: Negative for [...] 0.5 mg oral tablet Take 1 tablet (0.5mg) by mouth twice daily and every 8 ho urs as needed Indications: anxiety hydrocortisone 1 % topical cream Apply topically [...] 1 capsule by mouth before babak akfast. oxyCODONE, immediate release, 5 mg oral tablet Take 1-2 tablets by mouth every six hour s as needed for severe pain. Wean as able. Do not drink alcohol, drive, operate machinery, o r care take for others while taking narcotics. oxyCODONE, immediate release, 5 mg oral tablet Take 1 to 2 tablets by mouth every 6 lorrie rs as needed for severe pain. Wean as able. Do not drink alcohol, drive, operate machinery, or care take for others while taking narcotics. predniSONE 10 mg oral tablet take 20 mg (two tablets) by mouth every other day alternat ing with 5 mg (one half tablet) by mouth every other day. tacrolimus 0.5 mg oral capsule Take 0.5 mg (one capsule) by mouth twice daily triamcinolone acetonide 0.1 % topical cream Apply topically to affected area three time s daily. Apply thin film to affected areas. triamcinolone acetonide 0.1 % topical ointment Apply a thin film to affected areas. trimethoprim-sulfamethoxazole 160-800 mg oral tablet Take 1 tablet by mouth twice daily (every Sunday and ). No current facility-administered medications for this visit. Facility-Administered Medications Ordered in Other Visits Medication Dose Route Frequency Provider Last Rate Last Dose azaCITIDine (VIDAZA) 75 mg in NaCl 0.9 % IV 32 mg/m2 (Treatment Plan Actual) intraveno us ONCE Yari Garcia MD 215 mL/hr at 03/22/16 1015 75 mg at 03/22/16 1015 ondansetron (ZOFRAN) tablet 8 mg 8 mg oral ONCE Yari Garcia MD Allergies Allergen Reactions Chlorhexidine Towelette Rash PAVAN cloths - ok to use Chloraprep for dresssing change per pt. Filed Vitals: 03/22/2016 9:26 AM Weight: 99.8 kg (220 lb 0.3 oz) BP: 112/72 Pulse: 68 Temp: 36.6 C (97.8 F) TempSrc: Oral Resp: 16 SpO2: 99% PainSc: 0 - Zero BMI: 27.94 kg/(m^2) Physical Exam Constitutional: He is well-developed, well-nourished, and in no distress. HENT: Head: Normocephalic and atraumatic. Mouth/Throat: Oropharynx is clear and moist. No oropharyngeal exudate. Eyes: Conjunctivae are normal. Pupils are equal, round, and reactive to light. Cardiovascular: Normal rate, regular rhythm, normal heart sounds and intact distal pulses. No murmur heard. Pulmonary/Chest: Breath sounds normal. No respiratory distress. He has no wheezes. He has n o rales. Abdominal: Soft. Bowel sounds are normal. He exhibits no distension. There is no tenderness . Musculoskeletal: He exhibits no edema. Neurological: He is alert. Skin: Skin is warm and dry. No rash noted. Psychiatric: Mood and affect normal. Vitals reviewed. Lab Results Component Value Date WBC 7.8 03/20/2016 HB 12.7 03/20/2016 HCT 37.4 03/20/2016 PLT 173 03/20/2016 MCV 105.9 03/20/2016 RDW 60.3 11/22/2015 Lab Results Component Value Date BICARB 26 03/20/2016 TBILI 0.3 03/20/2016 CA 9.3 03/20/2016 CL 100 03/20/2016 CR 0.9 03/20/2016 GLU 84 03/20/2016 AP 79 03/20/2016 TP 7.0 03/20/2016 BUN 13 03/20/2016 ALB 3.7 03/20/2016 AST 47* 03/20/2016 NA 142 03/20/2016 K 4.3 03/20/2016 ALT 88* 03/20/2016 Assessment/Plan: 1. Hematology: Khurram Gambleliat is currently day +208 s/p tBuCy-conditioned unrel ated donor PBSC transplant [...] He began maintenance azacitidine on 11/01/15, currently day 3, c6 . Peripheral blood counts WNL aside from mild, improving anemia. No blood products are requ ired today, no evidence of disease by peripheral smear. 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 Prednisone was increased back to 20 mg po daily. Skin bx 02/10/16 showed vaculolar inter face mixed dermatitis with eosinophils. DDx included GvHD and drug hypersensitivity reaction . Rash resolved with increased dose prednisone. Transaminitis noted, normalizing; ddx includ es GvHD, medications, iron overload, fatty liver. He has no s/s active GvHD at this time. --> decrease prednisone to 20 mg po every other day --> continue tacrolimus 0.5 mg bid without additional taper --> continue oral non-absorbables 3. Infectious Disease: Afebrile without localizing s/s infection. He continues prophylactic acyclovir and bactrim. Completed a treatment course of valganciclovir for CMV reactivation on 12/16/15. His most recent CMV PCR on 03/20/16 remains undetected. Immune reconstitution pane l collected 11/22/15 showed normal total T cells with increased CD8+ T cell subsets, normal t otal NK cells, decreased B cells with decreased margarita B cells and minimal immune activation with CD4 count 385. Post transplant vaccines currently on hold due to azacitidine maintenan ce therapy. --> continue acyclovir and bactrim --> due to CMV reactivation prior to day +100, continue to monitor PCRs q2 weeks through da y +270 --> encouraged pt and his close contacts to receive the inactivated influenza vaccine when it becomes available in the community Lab Results Component Value Date CMVQUANTPCR Undetected 03/20/2016 CMVQUANTPCR Undetected 03/15/2016 CMVQUANTPCR Undetected 03/06/2016 CMVQUANTPCR Undetected 02/28/2016 4. Fluid, Electrolyte and Nutrition: Continues to eat well despite intermittent nausea that resolves quickly without antiemetics. Adequate po fluid intake. His electrolytes are revie wed and are within acceptable limits. --> continue a well balanced diet --> maintain hydration --> continue po Mg++ supplements as prescribed 5. Cardiovascular: Pretransplant TTE completed 08/10/15 showed a LVEF of 55-60%. 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 --> continue current meds --> anticipate HTN with tacrolimus taper 6. Psychosocial: Hx of anxiety, previously well controlled with xanax TID. Noted increase i n anxiety or decreased effectiveness of xanax. Changed to clonazepam 0.5 mg po BID with kath kthrough prn. Continues 1 breakthrough dose every afternoon. Interested in a peer support gr oup. --> continue clonazepam 0.5 mg po BID with 0.5 mg po q8h prn breakthrough --> can titrate clonazepam q3 days as tolerated for ongoing anxiety, max dose 4 mg po daily --> pt provided with information for Junko Tada to establish peer support and AYA support gasper up resources available at [facility] 7. Musculoskeletal: Pt reports low back pain which has developed over the last 3-4 weeks. Pain increased with activity, no neurologic symptoms associated with pain. Trialed acetami nophen, ibuprofen without relief. --> recommend stretching daily to BID --> encouraged pt to participate in core strengthening exercises; provided resources for fr ee weekly yoga classes for cancer survivors in [place] 8. Follow up --> continue daily azacitidine through 03/24/16 --> RTC to f/u with Yari Garcia MD on , 03/30/16, sooner prn [facility] [address] [place] [address] Mailcode: [address] [address] documented in this enc ounter [...] | 2019 | Visit | Malignancy | [address] [place] [address] | | | | | | [facility] | | | | | | [place], [place] | | | | | | [address] | | | | | | [phone] | | | | | | | | +--------+---------+ + + + documented as of this encounter Visit Diagnoses + + | Diagnosis | + + | 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HCC) - Primary Bone marrow replaced by | | transplant | + + | Acute myeloid leukemia (AML), M4 (HCC)- primary induction failure | + + documented in this encounter"
--- OUTSIDE RECORDS SUMMARY | ~2019-05-17 | XMS | Encounter Summary ---
Demographics + + + | Address | [address] | | | [place] [address] | + + + | Home Phone | | + + + | Preferred Language | Unknown | + + + | Marital Status | | + + + | Jehovah'S Witness Affiliation | SPI | + + + | Race | White | + + + | Ethnic Group | Not or | + + + Author + + + | Author | [facility] | + + + | Organization | [facility] | + + + | Address | Unknown | + + + | Phone | Unavailable | + + + Support + + +---------+ + | Name | Relationship | Address | Phone | + + +---------+ + | Gabriel Kelly | ECON | Unknown | | + + +---------+ + Care Team Providers + +------+ + | Care Buttonhole Maker Name | Role | Phone | + +------+ + | Pending Pcp Addition | PCP | Unavailable | + +------+ + Encounter Details +--------+ + + + + | Date | Type | Department | Care Team | Description | +--------+ + + + + | 04/03/ | [employer] Driver | Center for | Yari Garcia MD | | | 2016 | | Hematologic | [address] | | | | | Malignancies at | [address] | | | | | [address] | [place], [place] | | | | | [address] | [address] | | | | | [address] Mailcode: | [phone] | | | | | [facility] | | | | | | [place], | | | | | | [place] [address] | | | | | | [phone] | | | +--------+ + + + [...] Rd | | | | | | [place], [place] | | | | | | [address] | | | | | | [phone] | | | | | | | | +--------+---------+ + + + documented as of this encounter Visit Diagnoses Not on filedocumented in this encounter"
--- OUTSIDE RECORDS SUMMARY | ~2019-05-17 | XMS | Encounter Summary ---
Demographics + + + | Address | [address] | | | [place] [address] | + + + | Home Phone | | + + + | Preferred Language | Unknown | + + + | Marital Status | | + + + | Samaritan Affiliation | SPI | + + + [...] Team Providers + +------+ + | Care Catalog Librarian Name | Role | Phone | + +------+ + | Zayda Hinton | PCP | | + +------+ + Encounter Details +--------+ + + + + | Date | Type | Department | Care Team | Description | +--------+ + + + + | 04/09/ | Procedure | 6A [facility] | | | | 2018 | Pass | [facility] | | | | | | Admitting Desk | | | | | | Located on the 9 | | | | | | floor [address] | | | | | | [address] | | | | | | [place], [place] | | | | | | [address] | | | +--------+ + + + [...] 2019 | Visit | Malignancy | [address] | | | | | | [address] | | | | | | [place], [place] | | | | | | [address] | | | | | | [phone] | | | | | | | | +--------+---------+ + + + documented as of this encounter Visit Diagnoses Not on filedocumented in this encounter"
--- OUTSIDE RECORDS SUMMARY | ~2019-05-17 | XMS | Encounter Summary ---
Demographics + + + | Address | [address] | | | [place] [address] | + + + | Home Phone | | + + + | Preferred Language | Unknown | + + + | Marital Status | | + + + | Confucianist Affiliation | SPI | + + + | Race | White | + + + | Ethnic Group | Not or | + + + Author + + + | Author | [facility] | + + + | Organization | [facility] | + + + | Address | Unknown | + + + | Phone | Unavailable | + + + Support + + +---------+ + | Name | Relationship | Address | Phone | + + +---------+ + | [place] | ECON | Unknown | | + + +---------+ + Care Team Providers + +------+ + | Care Emt I/99 Name | Role | Phone | + +------+ + | Zayda Hinton | PCP | | + +------+ + Encounter Details +--------+ + + + + | Date | Type | Department | Care Team | Description | +--------+ + + + + | 08/08/ | Pharmacy | Specialty Pharmacy | | | | 2015 | Visit | Services [address] | | [address] | | | | | | [place], [place] | | | | | | [address] | | | | | | [phone] | | | +--------+ + + + [...] [place] | | | | | | [address] | | | | | | [phone] | | | | | | | | +--------+---------+ + + + documented as of this encounter Visit Diagnoses Not on filedocumented in this encounter"
--- OUTSIDE RECORDS SUMMARY | ~2019-05-17 | XMS | Encounter Summary ---
Demographics + + + | Address | [address] | | | [place] [address] | + + + | Home Phone | | + + + | Preferred Language | Unknown | + + + | Marital Status | | + + + | Baptist Affiliation | SPI | + + + [...] Team Providers + +------+ + | Care Parts Department Supervisor Name | Role | Phone | + [...] | Hematology | Diagnoses | Jose | [facility] | | | | Malignancy | 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, | [address] | [address] | | | | | not having | [address] | Mailcode: | | | | | achieved | [place], [place] | [id number] | | | | | remission | [address] | [facility] | | | | | | Phone: | [facility] | | | | | Procedures | [phone] | [place], [place] | | | | | Post BMT | Fax: | [address] | | | | | Auth to | [phone] | Phone: | | | | | included | | [phone] | | | | | facility, | | Fax: | | | | | diagnostics, | | [phone] | | | | | office | | | | | | | visits and | | | | | | | surgery | | | +--------+---------+ + + + + Encounter Details +--------+ + + + + | Date | Type | Department | Care Team | Description | +--------+ + + + + | 06/28/ | Diagnostic | Center for | | | | 2015 | Visit | Hematologic | | | | | | Malignancies at | | | | | | [facility] | | | | | | [address] | | | | | | [address] Mailcode: | | | | | | [id number] | | | | | | [place], | | | | | | [place] [address] | | | | | | [phone] | | | +--------+ + + + [...] documented as of this encounter Progress Notes Carmen Guidry MA - 06/28/2016 9:45 AM PSTVenipuncture performed in clinic, blood sample o btained from Left antecubital site 1 1:36 AM PSTdocumented in this encounter Plan of Treatment +--------+---------+ [...] 2019 | Visit | Malignancy | [address] | | | | | | [address] | | | | | | [place], [place] | | | | | | [address] | | | | | | [phone] | | | | | | | | +--------+---------+ + + + documented as of this encounter Procedures + +--------+ + + + | Procedure Name | Priori | Date/Time | Associated Diagnosis | Comments | | | ty | | | | + +--------+ + + + | BMP + MAG, POC CHM | Routin | 06/28/2016 | S/P allogeneic | Results for this | | | e | 10:10 AM | bone marrow | procedure are in the | | | | PST | transplant (HCC) | results section. 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) | | + +--------+ + + + | LIVER SET | Urgent | 06/28/2016 | S/P allogeneic | Results for this | | (AST,ALT,BILI | | 9:42 AM | bone marrow | procedure are [...] encounter Results BMP + MAG, POC CHM (06/28/2016 10:10 AM PST) + +---------+ + + + | Component | Value | Ref Range | Performed | Pathologist | | | | | At | Signature | + +---------+ + + + | SODIUM, POC | 138 | 134 - 143 | [facility] - | | | | | mmol/L | [facility] | | | | | | [facility], POINT | | | | | | OF CARE | | | | | | TESTS | | + +---------+ + + + | POTASSIUM, | 5.1 (H) | 3.4 - 5.0 | [facility] - | | | POC | | mmol/L | [facility] | | | | | | [facility], POINT | | | | | | OF CARE | | | | | | TESTS | | + +---------+ + + + | TOTAL CO2, | 23 | 22 - 29 mmol/L | [facility] - | | | POC | | | [facility] | | | | | | [facility], POINT | | | | | | OF CARE | | | | | | TESTS | | + +---------+ + + + | CHLORIDE, | 103 | 97 - 108 mmol/L | [facility] - | | | POC | | | [facility] | | | | | | [facility], POINT | | | | | | OF CARE | | | | | | TESTS | | + +---------+ + + + | GLUCOSE, | 108 (H) | 60 - 99 mg/dL | [facility] - | | | POC | | | [facility] | | | | | | [facility] | | | | | | OF CARE | | | | | | TESTS | | + +---------+ + + + | CALCIUM | 9.4 | 8.6 - 10.2 | [facility] - [...] + + + | LDH, POC | 295 (H) | 0 - 206 U/L | [...] - [facility] | [address] | [place], [place] | | | [facility] CARE | [facility] | [address] | | | TESTS | | | | + + + + + CBC+DIFF,POC (06/28/2016 9:57 AM PST) + + + + + + | Component | Value | Ref Range | Performed | Pathologist | | | | | At | Signature | + + + + + + | WBC POC | 5.8 | 4.4 - 11.0 | [facility] - | | | | | 10*3/uL | [facility] | | | | | | [facility] | | | | | | OF CARE | | | | | | TESTS | | + + + + + + | RBC POC | 4.20 (L) | 4.50 - 6.00 | [facility] - | | | | | 10*6/uL | [facility] | | | | | | [facility] | | | | | | OF CARE | | | | | | TESTS | | + + + + + + | HGB POC | 13.8 | 13.5 - 17.5 | [facility] - | | | | | g/dL | [facility] | | | | | | [facility] | | | | | | OF CARE | | | | | | TESTS | | + + + + + + | HCT POC | 41.2 | 41.0 - 53.0 % | [facility] - | | | | | | [facility] | | | | | | [facility] | | | | | | OF CARE | | | | | | TESTS | | + + + + + + | MCV POC | 98.1 (H) | 80.0 - 96.0 fL | [facility] - | | | | | | [facility] | | | | | | [facility] | | | | | | OF CARE | | | | | | TESTS | | + + + + + + | MCH POC | 32.9 (H) | 28.5 - 32.3 pg | [facility] - | | | | | | [facility] | | | | | | [facility] | | | | | | OF CARE | | | | | | TESTS | | + + + + + + | MCHC POC | 33.5 | 33.0 - 35.5 | [facility] - | | | | | g/dL | [facility] | | | | | | [facility] | | | | | | OF CARE | | | | | | TESTS | | + + + + + + | RDW SD, POC | 46.9 (H) | 35.1 - 46.3 fL | [facility] - | | | | | | [facility] | | | | | | [facility] | | | | | | OF CARE | | | | | | TESTS | | + + + + + + | PLT POC | 195 | 150 - 400 | [facility] - | | | | | 10*3/uL | [facility] | | | | | | [facility] | | | | | | OF CARE | | | | | | TESTS | | + + + + + + | MPV POC | 7.7 (L) | 9.7 - 12.3 fL | [facility] - | | | | | | [facility] | | | | | | [facility], POINT | | | | | | OF CARE | | | | | | TESTS | | + + + + + + | NEUTROPHIL% | 50.6 | 50.0 - 70.0 % | [facility] - | | | POC | | | [facility] | | | | | | [facility], POINT | | | | | | OF CARE | | | | | | TESTS | | + + + + + + | LYMPH% POC | 27.9 | 18 - 42 % | [facility] - | | | | | | [facility] | | | | | | [facility], POINT | | | | | | OF CARE | | | | | | TESTS | | + + + + + + | MONO %, POC | 15.1 (H) | 3.5 - 9.0 % | [facility] - | | | | | | [facility] | | | | | | [facility], POINT | | | | | | OF CARE | | | | | | TESTS | | + + + + + + | EOS %, POC | 5.9 (H) | 1.0 - 3.0 % | [...] + + + + | NEUTROPHIL# | 2.9 | 1.8 - 7.7 | [facility] - | | | POC | | 10*3/uL | [facility] | | | | | | [facility] | | | | | | OF CARE | | | | | | TESTS | | + + + + + + | LYMPH# POC | 1.6 | 1.0 - 4.8 | [facility] - | | | | | 10*3/uL | [facility] | | | | | | [facility] POINT | | | | | | OF CARE | | | | | | TESTS | | + + + + + + | MONO #, POC | 0.9 | 0.1 - 0.9 | [facility] - [...] + + | [facility] | [address] | [place], [place] | | | [facility]INT [facility] CARE | [address] | [address] | | | TESTS | | | | + + + + + LIVER SET (AST,ALT,BILI TOTAL,BILI DIRECT,ALK PHOS,ALB,PROT TOTAL) (06/28/2016 9:42 AM PST ) + +---------+ + + + [...] + + + | ALK PHOS | 125 | 53 - 128 U/L | [facility] | | | | | | LABORATORY | | | | | | SERVICES, | | | | | | CORE | | + +---------+ + + + | AST(SGOT) | 58 (H) | <=41 U/L | [facility] | | | | | | LABORATORY | | | | | | SERVICES, | | | | | | CORE | | + +---------+ + + + | ALT (SGPT) | 112 (H) | <=60 U/L | [facility] | | | | | | LABORATORY | | | | | | SERVICES, | | | | | | CORE | | + +---------+ + + + | TOTAL | 6.9 | 6.4 - 8.2 g/dL | [facility] [...] [facility] | [address] | [place] [address] | | | SERVICES, CORE | [address] | | | + + + + + documented in this encounter Visit Diagnoses + + | Diagnosis | + + | 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HCC) - Primary Bone marrow replaced by | | transplant | + + | 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
--- OUTSIDE RECORDS SUMMARY | ~2019-05-17 | XMS | Encounter Summary ---
Demographics + + + | Address | [address] | | | [place] [address] | + + + | Home Phone | | + + + | Preferred Language | Unknown | + + + | Marital Status | | + + + | Latter Day Affiliation | SPI | + + + | Race | White | + + + | Ethnic Group | Not or | + + + Author + + + | Author | [facility] | + + + | Organization | [facility] | + + + | Address | Unknown | + + + | Phone | Unavailable | + + + Support + + +---------+ + | Name | Relationship | Address | Phone | + + +---------+ + | Gabriel Kelly | ECON | Unknown | | + + +---------+ + Care Team Providers + +------+ + | Care Journal Box Inspector Name | Role | Phone | + +------+ + | Pending Pcp Addition | PCP | Unavailable | + +------+ + Reason for Visit + + + | Reason | Comments | + + + | Lab Draw | Neostar | + + + | Dressing change | Neostar | + + + | Intravenous infusion | Magnesium 1 gram | + + + Office Visit - E/M Services (Routine) +--------+---------+ + + + + | Status | Reason | Specialty | Diagnoses / | Referred By | Referred To | | | | | Procedures | Contact | Contact | +--------+---------+ + + + + | Closed | Other | Hematology | Diagnoses | Jose, | [facility] | | | | Malignancy | 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, | [address] | [address] | | | | | not having | [address] | Mailcode: | | | | | achieved | [place], [place] | [id number] | | | | | remission | [address] | [place] | | | | | | Phone: | [facility]ilion | | | | | Procedures | [phone] | [place], [place] | | | | | Post BMT | Fax: | [address] | | | | | Auth to | [phone] | Phone: | | | | | included | | [phone] | | | | | facility, | | Fax: | | | | | diagnostics, | | [phone] | | | | | office | | | | | | | visits and | | | | | | | surgery | | | +--------+---------+ + + + + Encounter Details +--------+ + + + + | Date | Type | Department | Care Team | Description | +--------+ + + + + | 09/29/ | Clinical | Center for | | Lab Draw ([facility]); | | 2015 | Support | Hematologic | | Dressing change | | | Staff | Malignancies at [facility] | | (Neostar); | | | | [address] | | Intravenous infusion | | | | [place] Mailcode: | | (Magnesium 1 gram) | | | | [id number] [place] | | | | | | [place], | | | | | | [place] [address] | | | | | | [phone] | | | +--------+ + + + [...] + + + | Blood Pressure | 105/69 | 09/30/2015 8:51 AM | | | | | PDT | | + + + + + | Pulse | 78 | 09/30/2015 8:51 AM | | | | | PDT | | + + + + + | Temperature | 36.9 C (98.4 F) | 09/30/2015 8:51 AM | | | | | PDT | | + + + + + | Respiratory Rate | 18 | 09/30/2015 8:51 AM | | | | | PDT | | + + + + + | Oxygen Saturation | 98% | 09/30/2015 8:51 AM | | | | | PDT | | + + + + + | Inhaled Oxygen | - | - | | | Concentration | | | | + + + + + | Weight | 77 kg (169 lb 12.1 | 09/30/2015 8:51 AM | | | | oz) | PDT | | + + + + + | Height | - | - | | + + + + + | Body Mass Index | 21.94 | 08/18/2015 4:35 PM | | | | | PST | | + + + + + documented in this encounter Progress Notes Ni Nelson RN - 09/30/2015 9:25 AM PDTHematologic Malignancy: Primary refractory AM L Conditioning regimen: tBuCy Date of transplant: 08/27/2015 (two day 0s) Donor: MM URD (DPB1 permissive antigen mismatch, male, [id number]) Patient scheduled for provider visit today with Em ANDREWS. Patient ambulated in with spouse. Patient denies fevers, chills, sob, nausea, vomiting, everardo rrhea, constipation, and bleeding. He reports his appetite is fantastic and he has been drin jen 2L more of fluids a day. He reports exercising lots, bowling for strength and doing sev eral mile walks. He denies lightheadness, dizziness, or swelling. Patient reports sleeping w ell and overall feeling great. He continues to have a red rash over most of his body but it is not painful or itchy and it does not have red raised bumps anymore. Patient on Tacrolimus 1.5mg BID. Patient has not taken AM dose. RN visualized patient takin g dose in clinic after lab draw. [facility] Lab Draw: Neostar accessed per protocol. Good blood return noted. Appropriate waste discarded. Lab s drawn and sent. Neostar pulse flushed with 20 mL NS and 5 mL of 10 units/mL Heparin. Neostar intact to left anterior chest wall without erythema or induration. Dressing remove d, skin intact without s/s exit site or tunnel infection. Using a Central Line Dressing Lora nge kit, site cleansed with Chloraprep. Skin prep applied prior to dressing application. B iopatch applied with SorbaView dressing. Positive pressure valves changed to each port. A ll lumens pulse flushed with 5 mL of 10 units/mL Heparin. Patient tolerated procedure withou t difficulty. Per infusion plan: No transfusions needed. Magnesium Sulfate 2 gm in 50 mL NS started per infusion care orders for a previous magnesiu m level of 1.4. Level came back today at 1.7, patient requested to have Magnesium turned of f. Total of about 1 gram given today over 1/2 hour. For infusion details, see SEP. Supportive plan: none Chemo plan: none Patient left after provider visit, RN did not visualize discharge. Patient to RTC 10/04/15 or sooner if needed. 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 | | | | | | induction failure | | + +--------+ + + + | TREATMENT PARAMETERS | Routin | 09/30/2015 | 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), 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 | | | | | | induction failure | | + +--------+ + + + | TREATMENT PARAMETERS | Routin | 09/30/2015 | 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), 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 | | | | | | induction failure | | + +--------+ + + + | TREATMENT PARAMETERS | Routin | 09/30/2015 | 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), 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 | | | | | | induction failure | | + +--------+ + + + | TREATMENT PARAMETERS | Routin | 09/30/2015 | 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), 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 | | | | | | induction failure | | + +--------+ + + + | NURSING | Routin | 09/30/2015 | Acute myeloid | | | COMMUNICATION #3 - | 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), M4 | | | [facility] | | PDT | (HCC)- primary | | | | | | induction failure | | + +--------+ + + + | NURSING | Routin | 09/30/2015 | Acute myeloid | | | COMMUNICATION #2 - | 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), M4 | | | [facility] | | PDT | (HCC)- primary | | | | | | induction failure | | + +--------+ + + + | NURSING | Routin | 09/30/2015 | Acute myeloid | | | COMMUNICATION #1 - | 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), M4 | | | [facility] | | PDT | (HCC)- primary | | | | | | induction failure | | + +--------+ + + + | TREATMENT PARAMETERS | Routin | 09/30/2015 | Acute myeloid | | | #1 - [facility] | 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), 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 | | | | | | induction failure | | + +--------+ + + + | TREATMENT PARAMETERS | Routin | 09/30/2015 | Acute myeloid | | | #1 - [facility] | 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), M4 | | | | | PDT | ([facility])- primary | | | | | | induction failure | | + +--------+ + + + | RBC MORPHOLOGY | Routin | 09/30/2015 | Acute myeloid | Results for this | | | e | 8:59 AM | leukemia (AML), M4 | procedure are in the | | | | PDT | ([facility])- primary | results section. | | | | | induction failure | | + +--------+ + + + | CBC AND AUTO DIFF | Urgent | 09/30/2015 | Acute myeloid | Results for this | | | | 8:59 AM | leukemia (AML), M4 | procedure are in the | | | | PDT | ([facility])- primary | results section. | | | | | induction failure | | + +--------+ + + + | MANUAL DIFFERENTIAL | Routin | 09/30/2015 | Acute myeloid | Results for this | | | e | 8:59 AM | leukemia (AML), M4 | procedure are in the | | | | PDT | ([facility])- primary | results section. | | | | | induction failure | | + +--------+ + + + | CBC, WITH | Urgent | 09/30/2015 | Acute myeloid | Results for this | | DIFFERENTIAL | | 8:59 AM | leukemia (AML), M4 | procedure are in the | | | | PDT | ([facility])- primary | results section. | | | | | induction failure | | + +--------+ + + + | LIVER SET | Urgent | 09/30/2015 | Acute myeloid | Results for this | | (AST,ALT,BILI | | 8:37 AM | leukemia (AML), M4 | procedure are in the | | TOTAL,BILI | | PDT | ([facility])- primary | results section. 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 | | | | | | ([facility]) | | + +--------+ + + + | PHOSPHORUS, PLASMA | Urgent | 09/30/2015 | Acute myeloid | Results for this | | | | 8:37 AM | leukemia (AML), M4 | procedure are in the | | | | PDT | ([facility])- primary | results section. 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 | | | | | | ([facility]) | | + +--------+ + + + | BMP + MAG, POC CHM | Urgent | 09/30/2015 | Acute myeloid | Results for this | | | | 7:57 AM | leukemia (AML), M4 | procedure are in the | | | | PDT | ([facility])- primary | results section. 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 | | | | | | ([facility]) | | + +--------+ + + + documented in this encounter Results RBC MORPHOLOGY (09/30/2015 8:59 AM PDT) + + + + + [...] | + + + + + | [facility] | [address] | [place] [address] | | | SERVICES, CORE | [address] | | | + + + + + MANUAL DIFFERENTIAL (09/30/2015 8:59 AM PDT) + + + + + + | Component | Value | Ref Range | Performed | Pathologist | | | | | At | Signature | + + + + + + | NEUTROPHIL | 74.3 (H) | 50.0 - 70.0 % | [facility] | | | % | | | LABORATORY | | | | | | SERVICES, | | | | | | CORE | | + + + + + + | LYMPHOCYTE | 4.6 (L) | 18.0 - 42.0 % | [facility] | | | % | | | LABORATORY | | | | | | SERVICES, | | | | | | CORE | | + + + + + + | MONOCYTE % | 10.1 (H) | 3.5 - 9.0 % | [facility] | | | | | | LABORATORY | | | | | | SERVICES, | | | | | | CORE | | + + + + + + | EOSINOPHIL | 1.8 | 1.0 - 3.0 % | [facility] [...] + + + + | IG% | 9.2 (H)Comment: Immature | 0.0 - 0.6 % | [...] + + + + | NEUTROPHIL | 11.35 (H) | 1.80 - 7.70 | [facility] | | | # | | K/cu mm | LABORATORY | | | | | | SERVICES, | | | | | | CORE | | + + + + + + | LYMPHOCYTE | 0.70 (L) | 1.00 - 4.80 | [facility] | | | # | | K/cu mm | LABORATORY | | | | | | SERVICES, | | | | | | CORE | | + + + + + + | MONOCYTE # | 1.54 (H) | 0.10 - 0.90 | [facility] | | | | | K/cu mm | LABORATORY | | | | | | SERVICES, | | | | | | CORE | | + + + + + + | EOSINOPHIL | 0.28 | 0.00 - 0.50 | [facility] | [...] + + + + | IG# | 1.41 (H) | 0.00 - 0.03 | [facility] [...] | + + + + + | [facility] | [address] | [place] [address] | | | SERVICES, CORE | [address] | | | + + + + + CBC AND AUTO DIFF (09/30/2015 8:59 AM PDT) + + + + + + | Component | Value | Ref Range | Performed | Pathologist | | | | | At | Signature | + + + + + + | WHITE CELL | 15.28 (H) | 4.40 - 11.00 | [facility] | | | COUNT | | K/cu mm | LABORATORY | | | | | | SERVICES, | | | | | | CORE | | + + + + + + | RED CELL | 3.20 (L) | 4.50 - 6.00 | [facility] | | | COUNT | | M/cu mm | LABORATORY | | | | | | SERVICES, | | | | | | CORE | | + + + + + + | HEMOGLOBIN | 9.9 (L) | 13.5 - 17.5 | [facility] | | | | | g/dL | LABORATORY | | | | | | SERVICES, | | | | | | CORE | | + + + + + + | HEMATOCRIT | 29.7 (L) | 41.0 - 53.0 % | [facility] | | | | | | LABORATORY | | | | | | SERVICES, | | | | | | CORE | | + + + + + + | MCV | 92.8 | 80.0 - 96.0 fL | [facility] | | | | | | LABORATORY | | | | | | SERVICES, | | | | | | CORE | | + + + + + + | MCHC | 33.3 | 33.0 - 35.5 | [facility] | | | | | g/dL | LABORATORY | | | | | | SERVICES, | | | | | | CORE | | + + + + + + | RDW SD | 57.4 (H) | 35.1 - 46.3 fL | [facility] | | | | | | LABORATORY | | | | | | SERVICES, | | | | | | CORE | | + + + + + + | PLATELET | 134 (L) | 150 - 400 K/cu | [facility] | | | COUNT | | mm | LABORATORY | | | | | | SERVICES, | | | | | | CORE | | + + + + + + | MPV | 9.1 (L) | 9.7 - 12.3 fL | [facility] | | | | | | LABORATORY | | | | | | SERVICES, | | | | | | CORE | | + + + + + + | NRBC% | 0.3 | 0.0 - 0.3 % | [facility] | | | | | | LABORATORY | | | | | | SERVICES, | | | | | | CORE | | + + + + + + | NRBC# | 0.04 (H) | 0.00 - 0.02 | [facility] | [...] + + | [facility] | [address] | [place] [address] | | | SERVICES, CORE | [address] | | | + + + + + LIVER SET (AST,ALT,BILI TOTAL,BILI DIRECT,ALK PHOS,ALB,PROT TOTAL) (09/30/2015 8:37 AM PDT ) + +---------+ + + [...] +---------+ + + + | BILIRUBIN | 0.2 (L) | 0.3 - 1.2 mg/dL | [facility] [...] + + + | ALK PHOS | 71 | 53 - 128 U/L | [facility] | | | | | | LABORATORY | | | | | | SERVICES, | | | | | | CORE | | + +---------+ + + + | AST(SGOT) | 23 | <=41 U/L | [facility] | | | | | | LABORATORY | | | | | | SERVICES, | | | | | | CORE | | + +---------+ + + + | ALT (SGPT) | 68 (H) | <=60 U/L | [facility] | | | | | | LABORATORY | | | | | | SERVICES, | | | | | | CORE | | + +---------+ + + + | TOTAL | 6.3 (L) | 6.4 - 8.2 g/dL | [facility] [...] | + + + + + | [facility] | [address] | [place] [address] | | | SERVICES, CORE | [address] | | | + + + + + TACROLIMUS, WHOLE BLOOD (09/30/2015 8:37 AM PDT) + +-------+ + + + | Component | Value | Ref Range | Performed | Pathologist | | | | | At | Signature | + +-------+ + + + | TACROLIMUS | 10.5 | 5.0 - 15.0 | [facility] | [...] | + + + + + | [facility] | [address] | [place] [address] | | | SERVICES, SPECIAL | [address] | | | | IMM + COAG | | | | + + + + + PHOSPHORUS, PLASMA (09/30/2015 8:37 AM PDT) + +-------+ + + + | Component | Value | Ref Range | Performed | Pathologist | | | | | At | Signature | + +-------+ + + + | PHOSPHORUS, | 3.3 | 2.4 - 4.7 mg/dL | [facility] [...] | + + + + + | [facility] | [address] | [place] [address] | | | SERVICES, CORE | [address] | | | + + + + + BMP PLUS, POC CHM (09/30/2015 7:57 AM PDT) + +---------+ + + + [...] +---------+ + + + | POTASSIUM, | 4.7 | 3.4 - 5.0 | [facility] - | | | POC | | mmol/L | [facility] | | | | | [...] +---------+ + + + | CHLORIDE, | 96 (L) | 97 - 108 mmol/L | [facility] - | | | POC | | | [facility] | | | | | | [facility] | | | | | | OF CARE | | | | | | TESTS | | + +---------+ + + + | GLUCOSE, | 85 | 60 - 99 mg/dL | [facility] [...] + + + | BUN, POC | 17 | 6 - 20 mg/dL | [facility] [...] + + + | LDH, POC | 242 (H) | 0 - 206 U/L | [...] | | | POC | | | [facility] | | | [...] [facility] | [address] | [place], [place] | | | [facility] OF CARE | [address] | [address] | | | TESTS | | | [...] 10 unit/mL IV flush | Given | 09/30/19 | 50 Units | | | | syringe 50 Units 50 Units, | | 16 9:30 | | | | | Intracatheter, NEEDED, | | AM PDT | | | | | Starting Lupe 09/30/15 at 0923, | | | | | | | Until Lupe 09/30/15 at 1656, line | | | | | | | patency | | | | | | + +--------+ + +------+------+ +-------+ + +---+---+ | Given | 09/30/19 | 50 Units | | | | | 16 9:01 | | | | | | AM PDT | | | | +-------+ + +---+---+ | Given | 09/30/19 | 50 Units | | | | | 16 9:00 | | | | | | AM PDT | | | | +-------+ + +---+---+ +---+---+ | | | +---+---+ + +---------+ +-----+---+---+ | magnesium sulfate in water IV | New Bag | 09/30/19 | 2 g | | | | (RTU) 2 g 2 g, intravenous, | | 16 9:00 | | | | | ONCE, 1 dose, Lupe 09/30/15 at 0900 | | AM PDT | | | | + +---------+ +-----+---+---+ +---+---+ | | | +---+---+ documented in this encounter"
--- OUTSIDE RECORDS SUMMARY | ~2019-05-17 | XMS | Encounter Summary ---
Demographics + + + | Address | [address] | | | [place] [address] | + + + | Home Phone [...] Team Providers + +------+ + | Care Paediatric Surgeon Name | Role | Phone | + +------+ + | Zayda Hinton | PCP | | + +------+ + Encounter Details +--------+ + + + + | Date | Type | Department | Care Team | Description | +--------+ + + + + | 08/31/ | Pharmacy | Specialty Pharmacy | | | | 2016 | Visit | Services [address] | | | | | | [address] | | | | | | [place], [place] | | | | | | [address] | | | | | | [phone] | | | +--------+ + + + [...] 2019 | Visit | Malignancy | [address] [facility] | | | | | | [address] | | | | | | [place], [place] | | | | | | [address] | | | | | | [phone] | | | | | | | | +--------+---------+ + + + documented as of this encounter Visit Diagnoses Not on filedocumented in this encounter"
--- OUTSIDE RECORDS SUMMARY | ~2019-05-17 | XMS | Encounter Summary ---
Demographics + + + | Address | [address] | | | [place] [address] | + + + | Home Phone [...] Team Providers + +------+ + | Care Live In Housekeeper Name | Role | Phone | + +------+ + | Pending Pcp Addition | PCP | Unavailable | + +------+ + Encounter Details +--------+ + + + + | Date | Type | Department | Care Team | Description | +--------+ + + + + | 11/21/ | Telephone | Center for | Aspen Cummins FNP | | | 2016 | | Hematologic | [address] | | | | | Malignancies at [facility] | [address] | | | | | [address] | [place], [place] | | | | | [address] Mailcode: | [id number] | | | | | [id number] | [phone] | | | | | [place], | | | | | | [place] [address] | | | | | | [phone] | | | +--------+ + + + [...] [address] | | | | | | [place], [place] | | | | | | [address] | | | | | | [phone] | | | | | | | | +--------+---------+ + + + documented as of this encounter Visit Diagnoses Not on filedocumented in this encounter"
--- OUTSIDE RECORDS SUMMARY | ~2019-05-17 | XMS | Encounter Summary ---
Demographics + + + | Address | [address] | | | [place] [address] | + + + | Home Phone [...] Team Providers + +------+ + | Care Atomic Fuel Assembler Name | Role | Phone | + [...] | | | | | achieved | [place], [place] | [id number] | | | | | remission | [address] | [place] | | | | | | Phone: | Asha | | | | | Procedures | [phone] | [place], [place] | | | | | Post BMT | Fax: | [phone] | | | | | Auth to | [phone] | Phone: | | | | | included | | [phone] | | | | | facility, | | Fax: | | | | | diagnostics, | | [phone] | | | | | office | | | | | | | visits and | | | | | | | surgery | | | +--------+---------+ + + + + Encounter Details +--------+---------+ + + + | Date | Type | Department | Care Team | Description | +--------+---------+ + + + | 10/24/ | Office | Center for | Yari Garcia MD | 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), M4 | | | | Malignancies at | [address] | (HCC)- primary | | | | [facility] | [place], [place] | induction failure | | | | [address] | [address] | (Primary Dx) | | | | Debi Burger Mailcode: | [phone] | | | | | [id number] [place] | | | | | | [place], | | | | | | [place] [address] | | | | | | [phone] | | | +--------+---------+ + + + [...] + + + | Blood Pressure | 119/80 | 10/25/2015 11:36 AM | | | | | PDT | | + + + + + | Pulse | 70 | 10/25/2015 11:36 AM | | | | | PDT | | + + + + + | Temperature | 36.7 C (98 F) | 10/25/2015 11:36 AM | | | | | PDT | | + + + + + | Respiratory Rate | 14 | 10/25/2015 11:36 AM | | | | | PDT | | + + + + + | Oxygen Saturation | - | - | | + + + + + | Inhaled Oxygen | - | - | | | Concentration | | | | + + + + + | Weight | 78.3 kg (172 lb 11.2 | 10/25/2015 11:36 AM | | | | oz) | PDT | | + + + + + | Height | - | - | | + + + + + | Body Mass Index | 22.32 | 08/18/2015 4:35 PM | | | | | PST | | + + + + + documented in this encounter Patient Instructions Patient Instructions Yari Garcia MD - 10/25/2015 12:38 PM PDTDecrease prednisone dosing to 10 mg daily starting on 10/28/15. Try to use 10 mg oxycodone instead of 15mg. Be careful in the sun. You need lots of sunscreen. You MUST NOT GET BURNED! We will plan on starting azacyitdine next Sunday for 5 days. Then you will have labs twice weekly. We will do a bone marrow biopsy at the end of cycle #1 as it will be close to day 100. Either Aspen CARDENAS, or myself will see you each week. Check out at the net front end developer today and make your next appointments. You can also call the flaco whitehead at [phone]. If you have any questions, or if you need prescription refills, or are experiencing any sym ptoms or side effects please call our denial management representative at [phone] documented in this encounter Progress Notes Yari Garcia MD - 11/20/2015 10:54 PM PDT 10/25/2015 [facility] Physician: Yari Garcia MD Local Oncologist: Yari Garcia MD PCP: Pending Pcp ADDITION Hematologic Malignancy: Primary refractory AML Conditioning regimen: tBuCy Date of transplant: 08/27/2015 (two day 0s) Donor: MM URD (DPB1 permissive antigen mismatch, male, [id number]) Hematologic History: Khurram Kelly is a 25 y.o. CM with a PMH of pericarditis who was in his [facility] u ntil 03/13/15 (the night of his [...] his L ankle. He was evaluated at [facility] ED on 06/[address] angiogram negative [...] recurrent fevers, pericarditis and CBC abnl, jazlyn e was referred to Oncology for additional evaluation. Marrow studies completed on 05/19/15 s howed a hypercellular marrow (80-90%) with 86% of blast equivalents, comprised of myeloblast s, monoblasts and promonocytes. Concurrent flow cytometry detected 23% myeloid blasts and 60 % immature monocytic cells supporting this diagnosis. 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 He was referred to [facility] for further evaluation and man agement of his newly dx'd AML. Pt was admitted to [facility] on 05/26/15. Peripheral blood was sent [...] CD34, variable CD56, variable CD117, and dim [id number] mickey; promonocyte immunophenotype (70% by flow): CD11b, [...] infection. He was d/c'd to home on 07/08/15. Due to disease persistence, he then underwent treatment with decitabine 20mg/m2 on days 1-1 0 (07/19/15 - 07/28/15) which was uncomplicated. He did not have any fevers/infectious symptom s requiring further evaluation during this time. No recurrence of oral cavity/upper chest pain. He was recently hospitalized from 08/18/15-09/13/2015 for his initial transplant hospitalizati on. For complete details of his recent hospitalization, please see discharge dictation in [facility]. Briefly, his transplant hospitalization was complicated by: pancytopenia, neutropenic f ever, pneumonia, mucositis (grade 3 at worst) with hematemesis, CINV, diarrhea, hypertension , rash, conjunctival injection. Khurram Kelly is a 25 y.o. male with Hx of primary refractory AML, currently d ay +59, s/p tBuCy conditioned MM URD SCT. Interval History: Khurram returns to clinic today doing well overall. He has had some issues with constipat ion - attributes to oxycodone or zofran. Used MOM with subsequent diarrhea. Continues to h ave nausea in mornings, though doesn't prevent him from eating and drinking relatively gabriela lly and has been putting on weight. MOod has been good - he has discontinued zoloft without complication. Energy level has been improving - stopped taking naps, has been increasing s pending time with his son. He and his are planning on moving more permanently to [place]. No fevers/chills. No significant changes in rash. Review of Systems Constitutional: Negative for fever, chills, weight loss and malaise/fatigue. Eyes: Negative for blurred vision. Respiratory: Negative for cough, shortness of breath and wheezing. Cardiovascular: Negative for chest pain and palpitations. Gastrointestinal: Negative for heartburn, abdominal pain and diarrhea. Musculoskeletal: Positive for joint pain. Negative for myalgias. Skin: Positive for rash. Negative for itching. Neurological: Negative for dizziness, tremors, weakness and headaches. Endo/Heme/Allergies: Does not bruise/bleed easily. Psychiatric/Behavioral: Negative for depression. The patient has insomnia. The patient is n ot nervous/anxious. Medications reviewed in [facility] and are updated. Vitals: BP 119/80 | Pulse 70 | Temp (Src) 36.7 C (98 F) (Oral) | RR 14 | Wt 78.336 kg (172 lb 1 1.2 oz) | BMI 22.33 kg/(m^2) Pre-transplant weight 165 pounds Physical Exam Constitutional: He is well-developed, well-nourished, and in no distress. No distress. HENT: Mouth/Throat: Oropharynx is clear and moist. No oropharyngeal exudate. Eyes: Conjunctivae are normal. Right eye exhibits no discharge. Left eye exhibits no discha rge. No scleral icterus. Neck: Normal range of motion. Cardiovascular: Normal rate, regular rhythm and normal heart sounds. No murmur heard. Pulmonary/Chest: Effort normal and breath sounds normal. Abdominal: Soft. Bowel sounds are normal. He exhibits no distension. There is no tenderness . Musculoskeletal: Normal range of motion. He exhibits no edema. Lymphadenopathy: He has no cervical adenopathy. Neurological: He is alert. Skin: Skin is warm and dry. Rash noted. He is not diaphoretic. There is erythema. Faint maculopapular rash over bilateral forearms and shins. Minimal residual discoloration over upper back and chest. Psychiatric: Mood, memory, affect and judgment normal. Clinical Buckle Frame Shaper on 10/25/2015 Component Date Value SODIUM, POC 10/25/2015 139 POTASSIUM, POC 10/25/2015 3.8 TOTAL CO2, POC 10/25/2015 27 CHLORIDE, POC 10/25/2015 98 GLUCOSE, POC 10/25/2015 120* CALCIUM TOTAL, POC 10/25/2015 9.1 BUN, POC 10/25/2015 21* CREATININE, POC 10/25/2015 0.8 LDH, POC 10/25/2015 188 MAGNESIUM, POC 10/25/2015 1.8 WBC POC 10/25/2015 7.0 RBC POC 10/25/2015 3.36* HGB POC 10/25/2015 11.1* HCT POC 10/25/2015 33.3* MCV POC 10/25/2015 99.1* MCH POC 10/25/2015 33.0* MCHC POC 10/25/2015 33.3 RDW SD, POC 10/25/2015 61.0* PLT POC 10/25/2015 103* MPV POC 10/25/2015 8.3* NEUTROPHIL% POC 10/25/2015 65.6 LYMPH% POC 10/25/2015 23.6 MONO %, POC 10/25/2015 9.1* EOS %, POC 10/25/2015 1.4 BASO %, POC 10/25/2015 0.3 NEUTROPHIL# POC 10/25/2015 4.6 LYMPH# POC 10/25/2015 1.6 MONO #, POC 10/25/2015 0.6 EOS #, POC 10/25/2015 0.1 BASO #, POC 10/25/2015 0.0 CBC COMMENT, POC 10/25/2015 Imm Gran. ALBUMIN, PLASMA (LAB) 10/25/2015 3.7 BILIRUBIN TOTAL 10/25/2015 0.3 BILIRUBIN DIRECT 10/25/2015 0.1 ALK PHOS 10/25/2015 64 AST(SGOT) 10/25/2015 26 ALT (SGPT) 10/25/2015 124* TOTAL PROTEIN, PLASMA (L* 10/25/2015 6.8 AST CMNT 10/25/2015 No Hemo BILI T CMNT 10/25/2015 No Hemo BILI D CMNT 10/25/2015 No Hemo PHOSPHORUS, PLASMA (LAB) 10/25/2015 3.4 ASPERGILLUS GALACTOMANNA* 10/25/2015 Negative ASP GAL INDEX, SER 10/25/2015 0.08 CMV DNA QUANTITATION BY * 10/25/2015 1300* Hematology: Hematologic Malignancy: Primary refractory AML Conditioning Regimen: tBuCy Stem cell transplant -Stem Cell product: tolerated MM (DPB1 permissive antigen mismatch) stem cell product on -08/27 (two day 0s) without complications. CD 34 count = 5.96 x 10^6 per kg -BMT Day: +59 Pertinent Diagnostics: -Around day + 30 repeat marrow studies completed, per guidelines; BM Bx done 09/27/15: hypoc ellular marrow (30%) with trilineage hematopoiesis, no increase in blasts (less then 2%). Cy togenetics normal male 46,XY [20]. VNTR with no host cells detected. Molecular markers with previous NRAS mutation is not detectable, but did show gene IL7R variant (possibly a benign germline polymorphism of donor origin). CBC reviewed and reveals progressive anemia and thrombocytopenia. -low threshold to d/c bactrim in setting of progressive cytopenias (without alternate etiol ogy - though GVHD is a consideration) Supportive Care: Growth Factor: last dose of Neupogen given on 09/11/15 Labs: Continue to check CBC twice weekly Transfusion parameters: -Transfuse PRBCs for HCT <21% if asymptomatic OR <24% if symptomatic -Transfuse PPH for platelet count <10,000 sooner for s/s bleeding Plan for maintenance post-transplant chemotherapy with azacytidine per the [facility] colleen men 32 mg/m2 x 5 days q 28 days x 6 cycles. GVHD: Skin GvHD: patient developed rash early in transplant course during SCT admission. Derm bio psy done 08/27/15 showing subtle vacuolar interface dermatitis, the changes are consistent wi th eruption of lymphocyte recovery and early mild tsdnr-juyslp-xukf disease. On 09/13, rash in volved ~15% BSA. Patient with progression of rash to chest, abd, back, upper arms bilat, thi ghs bilat (front and back); ~56% BSA at wrost on 09/14. Rash had resolved starting 10/06 clinic visit. Rash now re-appeared on 10/17 clinic visit and stable in location/presentation on 10/07 4: Faint patchy erythematous rash to lower chest, abdomen, flanks, and scattered over bilate ral forearms. Rash ~25% BSA, stable today. -Triamcinolone cream 0.1% TID to rash -Prednisone 1 mg/kg/d (35 mg BID), started on 09/15/15 and tapered as below: -09/20 reduced steroids by 25% per Dr. Garcia, taper down prednisone to 35 mg in morning and 15 mg in late afternoon. -09/23 taper down by 50% from original dose per Dr. Garcia, prednisone 35 mg daily. -Then taper by 5 mg weekly as long as GvHD skin remains improved. -Prednisone 15 mg once daily as of 10/20. Next taper planned 10/28/15 if rash continues to improve. 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 With patients high risk for relapse and known GvHD skin, empiric treatment was started with B&B. Patient thought for tiffanie ef period that these symptoms were caused from dairy products, but even after trial of cutti ng out dairy the symptoms returned. B&B were initially started 10/06, then on hold 10/13-10/19 a s patient thought symptoms were due to dairy products, then both B&B were restarted 10/20 wit h return of GI upset symptoms (in absence of dairy in diet). -Beclomethasone 1 mL suspension four times daily -Budesonide 3 mg capsule three times daily -IST as below Prophylaxis/Treatment: -Tacrolimus with levels biweekly and goal 5-10 -Methotrexate 15 mg/m IV on day +1, and 10 mg/m IV on days +3, +6 and +11. Received al l doses in full with leucovorin rescue after day +6 and +11 doses. Acute GvHD Staging: Skin: Grade 1 Gut: Grade 0 Liver: Grade 0 Overall stage: 0 HEENT: Seasonal allergies: -Zyrtec 10 mg daily, restarted 10/03 Pulmonary: Pretransplant PFTs completed on 08/09/15 showed FEV1 of 99% predicted, FVC of 11 0% predicted and adjusted DLCO of 82% predicted. No acute issues Cardiovascular: Pretransplant TTE completed on 08/10/15 showed a LVEF of 55-60%. 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 Improved with Zofran. -Zofran PRN /Renal: No acute issues Neuro/Psych: Depression- trial of Zoloft 25 mg daily, patient stopped on 09/15/15 as he felt more withdraw n since starting the medication. Anxiety -continue Xanax 1 mg TID PRN Insomnia -Zyprexa 10 mg HS Musculoskeletal: Bilateral knee pain: pain started after more intense activity with hiking up hills. Pain bower s been 2/10 on pain scale. No increased redness or swelling to the knees. He has decreased i ntense activity and is now walking on flat surfaces. The oxycodone is helping his pain. He h as also been taking oxycodone for generalized aches and pain he has had ongoing since his AM L diagnosis. -oxycodone PRN - reminded patient of importance of minimizing oxycodone use given habit-fo rming and sub-optimal pain control. Infectious Disease: No acute issues. Afebrile and no evidence of acute infection at this time. The patient i s reminded to take his temperature regularly (3-4 x daily) and to call immediately for a tem perature of 100.4 or greater. Antiviral: Acyclovir for antiviral prophylaxis. The CMV will be followed weekly for val ctivation by PCR. (CMV positive on 10/24 draw - pt started on gancyclovir on 10/25 900 mg bid) Antifungal: Posaconazole as of 09/15/15 with HD steroids for antifungal prophylaxis and we wi ll follow weekly Galactomannan assays. PCP proph: Pentamidine IV for PCP prophlaxis given on 09/12/15. Bactrim for PCP coverage star edward 10/11/15. IgG: IgG level will be followed every other week and replaced prn if it falls below 300 . Toxo: Pt is toxo negative 08/09/2015, no further testing required. Fluid/Nutrition/Lytes: Nutrition: Current diet -- low bacteria. Encourage po intake as tolerated with a goal of co nsistently drinking at least 2L calorie containing fluids per day. IV Fluid: None indicated today. Lytes: Continue to check chemistries twice weekly. Replace per supportive care protocol. -Hypomagnesemia: replace in clinic PRN F/u -RTC for azacytidine next week, labs twice weekly, infusions/transfusions prn and once week ly provider visits. Yari Garcia MD, MS Hotel Maintenance Workerstock drier tender [facility] [address] [place] [address] documented in this enc ounter Plan of [...] Rd | | | | | | [place], [place] | | | | | | [address] | | | | | | [phone] | | | | | | | | +--------+---------+ + + + documented as of this encounter Visit Diagnoses + + | Diagnosis | + + | Acute myeloid leukemia (AML), M4 (HCC)- primary induction failure - Primary | + + documented in this encounter"
--- OUTSIDE RECORDS SUMMARY | ~2019-05-17 | XMS | Encounter Summary ---
Demographics + + + | Address | [address] | | | [place] [address] | + + + | Home Phone [...] Author | [facility] | + + + | Organization | [facility] | + + + | Address | Unknown | + + + | Phone | Unavailable | + + + Support + + +---------+ + | Name | Relationship | Address | Phone | + + +---------+ + | Gabriel Kelly | ECON | Unknown | | + + +---------+ + Care Team Providers + +------+ + | Care Coffee Bar Attendant Name | Role | Phone | + +------+ + | Zayda Hinton | PCP | | + +------+ + Encounter Details +--------+ + + + + | Date | Type | Department | Care Team | Description | +--------+ + + + + | 09/17/ | Hospital | Pulmonary Function | Tech, Pfl Adult | | | 2018 | Encounter | Lab at [facility] [address] | | | | | [address] | [facility] | | | | | Mailcode: [id number] | [place] [address] | | | | | [facility] | | | | | | [address] [place], [place] | | | | | | [address] | | | | | | [phone] | | | +--------+ + + + [...] 2019 | Visit | Malignancy | [address] | | | | | | [address] | | | | | | [place], [place] | | | | | | [address] | | | | | | [phone] | | | | | | | | +--------+---------+ + + + documented as of this encounter Procedures + +--------+ + + + | Procedure Name | Priori | Date/Time | Associated Diagnosis | Comments | | | ty | | | | + +--------+ + + + | SPIROMETRY, PULM | Routin | 09/17/2017 | Acute | Results for this | | FUNCTION LAB | e | 9:09 AM | myelomonocytic | procedure are in the | | | | PDT | leukemia in | results section. | | | | | remission (HCC) | | | | | | Immunocompromised | | | | | | state associated | | | | | | with stem cell | | | | | | transplant (HCC) | | | | | | S/P allogeneic bone | | | | | | marrow transplant | | | | | | (HCC) | | + +--------+ + + + documented in this encounter Results SPIROMETRY, PULM FUNCTION LAB (09/17/2017 9:09 AM PDT) + +-------+ + + + | Component | Value | Ref Range | Performed | Pathologist | | | | | At | Signature | + +-------+ + + + | FVC PRE | 7.04 | 6.11 L | [facility] | | | | | | SPECIAL | | | | | | DIAGNOSTICS | | | | | | - | | | | | | PULMONARY | | | | | | FUNCTION | | + +-------+ + + + | FVC PRE | 115 | % | [facility] | | | (%REF) | | | SPECIAL | | | | | | DIAGNOSTICS | | | | | | - | | | | | | PULMONARY | | | | | | FUNCTION | | + +-------+ + + + | FEV1 PRE | 5.48 | 4.98 L | [facility] | | | | | | SPECIAL | | | | | | DIAGNOSTICS | | | | | | - | | | | | | PULMONARY | | | | | | FUNCTION | | + +-------+ + + + | FEV1 PRE | 110 | % | [facility] | | | (%REF) | | | SPECIAL | | | | | | DIAGNOSTICS | | | | | | - | | | | | | PULMONARY | | | | | | FUNCTION | | + +-------+ + + + | FEV1/FVC | 78 | 82 % | [facility] | | | PRE | | | SPECIAL | | | | | | DIAGNOSTICS | | | | | | - | | | | | | PULMONARY | | | | | | FUNCTION | | + +-------+ + + + | FEV1/FVC | 94 | % | [facility] | | | PRE (%REF) | | | SPECIAL | | | | | | DIAGNOSTICS | | | | | | - | | | | | | PULMONARY | | | | | | FUNCTION | | + +-------+ + + + | PEF PRE | 10.55 | 11.02 L/sec | [facility] | | | | | | SPECIAL | | | | | | DIAGNOSTICS | | | | | | - | | | | | | PULMONARY | | | | | | FUNCTION | | + +-------+ + + + | PEF PRE | 95 | % | [facility] | | | (%REF) | | | SPECIAL | | | | | | DIAGNOSTICS | | | | | | - | | | | | | PULMONARY | | | | | | FUNCTION | | + +-------+ + + + | [id number]% | 4.92 | 4.94 L/sec | [facility] | | | PRE | | | SPECIAL | | | | | | DIAGNOSTICS | | | | | | - | | | | | | PULMONARY | | | | | | FUNCTION | | + +-------+ + + + | [id number]% | 99 | % | [facility] | | | PRE (%REF) | | | SPECIAL | | | | | | DIAGNOSTICS | | | | | | - | | | | | | PULMONARY | | | | | | FUNCTION | | + +-------+ + + + | FIF50% PRE | 7.22 | 9.13 L/sec | [facility] | | | | | | SPECIAL | | | | | | DIAGNOSTICS | | | | | | - | | | | | | PULMONARY | | | | | | FUNCTION | | + +-------+ + + + | FIF50% PRE | 79 | % | [facility] | | | (%REF) | | | SPECIAL | | | | | | DIAGNOSTICS | | | | | | - | | | | | | PULMONARY | | | | | | FUNCTION | | + +-------+ + + + | VC PRE | 7.11 | 5.83 L | [facility] | | | | | | SPECIAL | | | | | | DIAGNOSTICS | | | | | | - | | | | | | PULMONARY | | | | | | FUNCTION | | + +-------+ + + + | VC PRE | 121 | % | [facility] | | | (%REF) | | | SPECIAL | | | | | | DIAGNOSTICS | | | | | | - | | | | | | PULMONARY | | | | | | FUNCTION | | + +-------+ + + + | IC PRE | 4.54 | 3.82 L | [facility] | | | | | | SPECIAL | | | | | | DIAGNOSTICS | | | | | | - | | | | | | PULMONARY | | | | | | FUNCTION | | + +-------+ + + + | IC PRE | 118 | % | [facility] | | | (%REF) | | | SPECIAL | | | | | | DIAGNOSTICS | | | | | | - | | | | | | PULMONARY | | | | | | FUNCTION | | + +-------+ + + + | ERV PRE | 2.57 | 2.01 L | [facility] | | | | | | SPECIAL | | | | | | DIAGNOSTICS | | | | | | - | | | | | | PULMONARY | | | | | | FUNCTION | | + +-------+ + + + | ERV PRE | 127 | % | [facility] | | | (%REF) | | | SPECIAL | | | | | | DIAGNOSTICS | | | | | | - | | | | | | PULMONARY | | | | | | FUNCTION | | + +-------+ + + + | FRC PL PRE | 4.75 | 3.76 L | [facility] | | | | | | SPECIAL | | | | | | DIAGNOSTICS | | | | | | - | | | | | | PULMONARY | | | | | | FUNCTION | | + +-------+ + + + | FRC PL PRE | 126 | % | [facility] | | | (%REF) | | | SPECIAL | | | | | | DIAGNOSTICS | | | | | | - | | | | | | PULMONARY | | | | | | FUNCTION | | + +-------+ + + + | RV PRE | 2.18 | 1.75 L | [facility] | | | | | | SPECIAL | | | | | | DIAGNOSTICS | | | | | | - | | | | | | PULMONARY | | | | | | FUNCTION | | + +-------+ + + + | RV PRE | 124 | % | [facility] | | | (%REF) | | | SPECIAL | | | | | | DIAGNOSTICS | | | | | | - | | | | | | PULMONARY | | | | | | FUNCTION | | + +-------+ + + + | TLC PRE | 9.29 | 7.58 L | [facility] | | | | | | SPECIAL | | | | | | DIAGNOSTICS | | | | | | - | | | | | | PULMONARY | | | | | | FUNCTION | | + +-------+ + + + | TLC PRE | 122 | % | [facility] | | | (%REF) | | | SPECIAL | | | | | | DIAGNOSTICS | | | | | | - | | | | | | PULMONARY | | | | | | FUNCTION | | + +-------+ + + + | RV/TLC PRE | 23 | 22 % | [facility] | | | | | | SPECIAL | | | | | | DIAGNOSTICS | | | | | | - | | | | | | PULMONARY | | | | | | FUNCTION | | + +-------+ + + + | DLCO PRE | 41.85 | 35.14 | [facility] | | | | | ml/min/mmHg | SPECIAL | | | | | | DIAGNOSTICS | | | | | | - | | | | | | PULMONARY | | | | | | FUNCTION | | + +-------+ + + + | DLCO PRE | 119 | % | [facility] | | | (%REF) | | | SPECIAL | | | | | | DIAGNOSTICS | | | | | | - | | | | | | PULMONARY | | | | | | FUNCTION | | + +-------+ + + + | DLCO ADJ | 43.11 | 35.14 | [facility] | | | PRE | | ml/min/mmHg | SPECIAL | | | | | | DIAGNOSTICS | | | | | | - | | | | | | PULMONARY | | | | | | FUNCTION | | + +-------+ + + + | DLCO ADJ | 122 | % | [facility] | | | PRE (%REF) | | | SPECIAL | | | | | | DIAGNOSTICS | | | | | | - | | | | | | PULMONARY | | | | | | FUNCTION | | + +-------+ + + + | DLCO/VA ADJ | 5.10 | ml/min/mmHg/L | [facility] | | | PRE | | | SPECIAL | | | | | | DIAGNOSTICS | | | | | | - | | | | | | PULMONARY | | | | | | FUNCTION | | + +-------+ + + + | DLCO/VA ADJ | 109 | % | [facility] | | | PRE (%REF) | | | SPECIAL | | | | | | DIAGNOSTICS | | | | | | - | | | | | | PULMONARY | | | | | | FUNCTION | | + +-------+ + + + [...] YESSICA [facility]PER | [address] | [place], [place] | | | DIAGNOSTICS - | [place] | [address] | | | PULMONARY FUNCTION | | | | + + + + + documented in this encounter Visit Diagnoses + + | Diagnosis | + + | 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) Acute myeloid leukemia in remission | + + | 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
--- OUTSIDE RECORDS SUMMARY | ~2019-05-17 | XMS | Clinical Summary ---
Demographics + + + | Address | [address] | | | [place] [address] | + + + | Home Phone | | + + + | Preferred Language | Unknown | + + + | Marital Status | | + + + | Buddhism Affiliation | Unknown | + + + | Race | Unknown | + + + | Ethnic Group | Unknown | + + + Author + + + | Author | [facility] | | | and [place] | + + + | Organization | [facility] | | | and [place] | + + + | Address | Unknown | + + + | Phone | Unavailable | + + + Support + + + + + | Name | Relationship | Address | Phone | + + + + + | Gabriel Kelly | ECON | [address] | | | | | [place] | | | | | [address] | | + + + + + | Remedios Kelly | ECON | [address] | | | | | [place] [address] | | + + + + + Care Team Providers + +------+ + | Care Manager Ob Name | Role | Phone | + +------+ + | Yari Garcia MD | PCP | | + +------+ + Allergies No Known Allergies Medications + + + +---------+------+------+-------+ | Medication | Sig | Dispensed | Refills | Star | End | Statu | | | | | | t | Date | s | | | | | | Date | | | + + + +---------+------+------+-------+ | indomethacin | Take 50 mg by mouth | | 0 | | | Activ | | (INDOCIN) 50 MG | 3 times daily (with | | | | | e | | capsule | meals). | | | | | | + + + +---------+------+------+-------+ | colchicine 0.6 mg | Take 1 tablet by | 60 | 0 | 11/1 | | Activ | | tablet | mouth 2 times daily. | tablet | | 0/20 | | e | | | | | | 15 | | | + + + +---------+------+------+-------+ | ibuprofen | Take 1 tablet by | 60 | 0 | 11/1 | | Activ | | (ADVIL,MOTRIN) 600 | mouth every 8 hours | tablet | | 0/20 | | e | | MG tablet | as needed for Pain. | | | 15 | | | + + + +---------+------+------+-------+ | oxyCODONE | Take 1-2 tablets by | 50 | 0 | 11/1 | | Activ | | (ROXICODONE) 5 mg | mouth every 4 hours | tablet | | 1/20 | | e | | tablet | as needed for Pain. | | | 15 | | | | | 1-2 tabs every four | | | | | | | | hours as needed for | | | | | | | | pain | | | | | | + + + +---------+------+------+-------+ | OLANZapine zydis | Take 10 mg by mouth | | 0 | | | Activ | | (ZYPREXA ZYDIS) 10 | nightly. | | | | | e | | mg disintegrating | | | | | | | | tablet | | | | | | | + + + +---------+------+------+-------+ | acyclovir | Take 800 mg by mouth | | 0 | | | Activ | | (ZOVIRAX) 800 mg | 2 times daily. | | | | | e | | tablet | | | | | | | + + + +---------+------+------+-------+ | tacrolimus | Take 0.5 mg by mouth | | 0 | | | Activ | | (PROGRAF) 0.5 mg | 2 times daily. | | | | | e | | capsule | | | | | | | + + + +---------+------+------+-------+ | ALPRAZolam (XANAX) | Take 0.5 mg by mouth | | 0 | | | Activ | | 0.5 mg tablet | 3 times daily as | | | | | e | | | needed for Anxiety. | | | | | | + + + +---------+------+------+-------+ | omeprazole | Take 20 mg by mouth | | 0 | | | Activ | | (PRILOSEC) 20 mg | every morning | | | | | e | | capsule | (before breakfast). | | | | | | + + + +---------+------+------+-------+ | predniSONE | Take by mouth | | 0 | | | Activ | | (DELTASONE) 10 mg | Daily. Alternates | | | | | e | | tablet | 10mg EOD 5mg EOD | | | | | | + + + +---------+------+------+-------+ | budesonide | Take 6 mg by mouth 3 | | 0 | | | Activ | | (ENTOCORT EC) 3 mg | times daily. | | | | | e | | 24 hr capsule | | | | | | | + + + +---------+------+------+-------+ | amLODIPine | Take by mouth | | 0 | | | Activ | | (NORVASC) 5 mg | Daily. | | | | | e | | tablet | | | | | | | + + + +---------+------+------+-------+ | Beclomethasone | by Does not apply | | 0 | | | Activ | | Dipropionate POWD | route. 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 | + + Family History + + +------+ + | Medical History | Relation | Name | Comments | + + +------+ + | Cancer | Maternal | | breast cancer | | | Aunt | | | + + +------+ + | Heart attack | Maternal | | | | | Grandfath | | | | | er | | | + + +------+ + | Heart disease | Maternal | | | | | Grandfath | | | | | er | | | + + +------+ + | Diabetes | Maternal | | | | | Grandmoth | | | | | er | | | + + +------+ + | Heart disease | Maternal | | | | | Grandmoth | | | | | er | | | + + +------+ + | Cancer | Paternal | | breast cancer with mets to bone | | | Grandmoth | | | | | er | | | + + +------+ + | Cancer | Paternal | | bone cancer - great uncle | | | Uncle | | | + + +------+ + + +------+--------+ + | Relation | Name | Status | Comments | + +------+--------+ + | Maternal Aunt | | | | + +------+--------+ + | Maternal Grandfather | | | | + +------+--------+ + | Maternal Grandmother | | | | + +------+--------+ + | Paternal Grandmother | | | | + +------+--------+ + | Paternal Uncle | | | | + +------+--------+ + Social History + +-------+ +--------+------+ | Tobacco Use | Types | Packs/Day | Years | Date | | | | | Used | | + +-------+ +--------+------+ | Current Every Day | | 0.5 | 7 | | | Smoker | | | | | + +-------+ +--------+------+ + +---+---+ + | Smokeless Tobacco: | | | Quit: | | Former User | | | 05/09/20 | | | | | 15 | + +---+---+ + + + +---------+ + | Alcohol Use | Drinks/We | oz/Week | Comments | | | ek | | | + + +---------+ + | Yes | | | few beers twice per month | + + +---------+ + + + [...] recent travel history available. | + + Last Filed Vital Signs + + + + | Vital Sign | Reading | Time Taken | + + + + | Blood Pressure | 145/95 | 02/04/2016 1511 PDT | + + + + | Pulse | 86 | 02/04/20161510 PDT | + + + + | Temperature | 37 C (98.6 F) | 02/04/20161510 PDT | + + + + | Respiratory Rate | 16 | 02/04/20161510 PDT | + + + + | Oxygen Saturation | 99% | 02/04/20161510 PDT | + + + + | Inhaled Oxygen | - | - | | Concentration | | | + + + + | Weight | 88.5 kg (195 lb) | 02/04/20161510 PDT | + + + + | Height | 189.9 cm (6' 2.76") | 02/04/20161510 PDT | + + + + | Body Mass Index | 24.53 | 02/04/20161510 PDT | + + + + Plan of Treatment + + + + + | Health Maintenance | Due Date | Last Done | Comments | + + + + + | Vaccine: | | 11/23/2016, 06/28/2016, | | | Pneumococcal 19-64 | 7 | 04/19/2016 | | | Highest Risk (2 of 3 | | | | | - PPSV23) | | | | + + + + + | Vaccine: Influenza | | 05/24/2017, 06/28/2016, | | | (#1) | 9 | 04/19/2016 | | + + + + + | Vaccine: | | 06/18/2017, 12/28/2016, | | | Dtap/Tdap/Td (8 - | 7 | 11/23/2016, Additional history | | | Td) | | exists | | + + + + + Results Not on filefrom Last 3 Months Insurance + +--------+ +--------+ +---------+--------+ | Payer | Benefi | Subscriber | Effect | Phone | Address | Type | | | t Plan | ID | mickey | | | | | | / | | Dates | | | | | | Group | | | | | | + +--------+ +--------+ +---------+--------+ | [facility] | PHP | [id number] | 10/08/19 | [phone] | | PPO | | PLAN | PEBB | | 11-Pre | 5 | | | | | STATEW | | sent | | | | | | [place] | | | | | | + +--------+ +--------+ +---------+--------+ | [place] | MEDICA | [id number] | | [phone] | | Medica | | | [place] | | 015-Pr | 2 | | id | | | PLUS | | esent | | | | + +--------+ +--------+ +---------+--------+ + +--------+ +--------+ + + | Guarantor Name | Accoun | Relation to | Date | Phone | Billing Address | | | t Type | Patient | of | | | | | | | | | | + +--------+ +--------+ + + | Khurram Kelly | Person | Self | [birth year] | [address] | | [place] | dandy/Patrick | | 1990 | [phone] | [place] | | | [place] | | | [address] (Home) | [address] | + +--------+ +--------+ + + Advance Directives Patient has advance care planning documents on file. For more information, please contact:[facility] [place] [address]
--- OUTSIDE RECORDS SUMMARY | ~2019-05-17 | XMS | Encounter Summary ---
Demographics + + + | Address | [address] | | | [place] [address] | + + + | Home Phone | | + + + | Preferred Language | Unknown | + + + | Marital Status | | + + + | Sabianism Affiliation | SPI | + + + [...] Team Providers + +------+ + | Care Grizzlyman Name | Role | Phone | + [...] | +--------+ + + + + | 05/22/ | Diagnostic | Center for | | Lab Draw | | 2016 | Visit | Hematologic | | | | | | Malignancies at | | | | | | [facility] | | | | | | [address] | | | | | | [place] Mailcode: | | | | | | [id number] [facility] | | | | | | [facility] | | | | | | [place] [address] | | | | | | [phone] | | | +--------+ + + + [...] documented as of this encounter Progress Notes Joshua Xie MA - 05/22/2016 2:45 PM PSTVenipuncture performed in clinic, blood sample obtained from Left antecubital site documented in this en counter Plan of Treatment +--------+---------+ + + + [...] Rd | | | | | | [place], [place] | | | | | | [address] | | | | | | [phone] | | | | | | | | +--------+---------+ + + + documented as of this encounter Procedures + +--------+ + + + | Procedure Name | Priori | Date/Time | Associated Diagnosis | Comments | | | ty | | | | + +--------+ + + + | BMP + MAG, POC CHM | Routin | 05/22/2016 | S/P allogeneic | Results for this | | | e | 3:45 PM | bone marrow | procedure are in the | | | | PST | transplant (HCC) | results section. 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) | | + +--------+ + + + | CBC+DIFF,POC | Routin | 05/22/2016 | S/P allogeneic | Results for this | | | e | 3:37 PM | bone marrow | procedure are in the | | | | PST | transplant (HCC) | results section. 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) | | + +--------+ + + + | CMV PCR | Routin | 05/22/2016 | S/P allogeneic | Results for this | | QUANTITATION, PLASMA | e | 2:57 PM | bone marrow | procedure are in the | | | | PST | transplant (HCC) | results section. 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) | | + +--------+ + + + | LIVER SET | Urgent | 05/22/2016 | S/P allogeneic | Results for this | | (AST,ALT,BILI | | 2:57 PM | bone marrow | procedure are [...] encounter Results BMP + MAG, POC CHM (05/22/2016 3:45 PM PST) + +---------+ + + + [...] +---------+ + + + | GLUCOSE, | 100 (H) | 60 - 99 mg/dL | [...] | TOTAL, POC | | mg/dL | [facility] | | | | | | [facility] | | | | | | OF CARE | | | | | | TESTS | | + +---------+ + + + | BUN, POC | 8 | 6 - 20 mg/dL [...] + + + | LDH, POC | 290 (H) | 0 - 206 U/L | [...] + + + | [facility] | [address] | [place], [place] | | | [facility] | [address] | [address] | | | TESTS | | | | + + + + + CBC+PHIL GRIJALVA (05/22/2016 3:37 PM PST) + + + + + + | Component | Value | Ref Range | Performed | Pathologist | | | | | At | Signature | + + + + + + | WBC POC | 8.6 | 4.4 - 11.0 | [facility] - | | | | | 10*3/uL | [facility] | | | | | | [facility] | | | | | | OF CARE | | | | | | TESTS | | + + + + + + | RBC POC | 4.18 (L) | 4.50 - 6.00 | [facility] - | | | | | 10*6/uL | [facility] | | | | | | [facility] | | | | | | OF CARE | | | | | | TESTS | | + + + + + + | HGB POC | 14.2 | 13.5 - 17.5 | [facility] - | | | | | g/dL | [facility] | | | | | | [facility] | | | | | | OF CARE | | | | | | TESTS | | + + + + + + | HCT POC | 41.8 | 41.0 - 53.0 % | [facility] - | | | | | | [facility] | | | | | | [facility] | | | | | | OF CARE | | | | | | TESTS | | + + + + + + | MCV POC | 100.0 (H) | 80.0 - 96.0 fL | [facility] - | | | | | | [facility] | | | | | | [facility] | | | | | | OF CARE | | | | | | TESTS | | + + + + + + | MCH POC | 34.0 (H) | 28.5 - 32.3 pg | [facility] - | | | | | | [facility] | | | | | | [facility] | | | | | | OF CARE | | | | | | TESTS | | + + + + + + | MCHC POC | 34.0 | 33.0 - 35.5 | [facility] - | | | | | g/dL | [facility] | | | | | | [facility] | | | | | | OF CARE | | | | | | TESTS | | + + + + + + | RDW SD, POC | 48.2 (H) | 35.1 - 46.3 fL | [facility] - | | | | | | [facility] | | | | | | [facility], POINT | | | | | | OF CARE | | | | | | TESTS | | + + + + + + | PLT POC | 199 | 150 - 400 | [facility] - | | | | | 10*3/uL | [facility] | | | | | | [facility], POINT | | | | | | OF CARE | | | | | | TESTS | | + + + + + + | MPV POC | 8.0 (L) | 9.7 - 12.3 fL | [facility] - | | | | | | [facility] | | | | | | [facility], POINT | | | | | | OF CARE | | | | | | TESTS | | + + + + + + | NEUTROPHIL% | 77.4 (H) | 50.0 - 70.0 % | [facility] - | | | POC | | | [facility] | | | | | | [facility], POINT | | | | | | OF CARE | | | | | | TESTS | | + + + + + + | LYMPH% POC | 12.6 (L) | 18 - 42 % | [facility] - | | | | | | [facility] | | | | | | [facility], POINT | | | | | | OF CARE | | | | | | TESTS | | + + + + + + | MONO %, POC | 8.1 | 3.5 - 9.0 % | [facility] - | | | | | | [facility] | | | | | | [facility] POINT | | | | | | OF CARE | | | | | | TESTS | | + + + + + + | EOS %, POC | 1.7 | 1.0 - 3.0 % | [facility] [...] + + + + | NEUTROPHIL# | 6.7 | 1.8 - 7.7 | [facility] - [...] + + | MONO #, POC | 0.7 | 0.1 - 0.9 | [facility] - [...] + | [facility] | [address] | [place], [place] | | | [facility], POINT OF CARE | [address] | [address] | | | TESTS | | | | + + + + + LIVER SET (AST,ALT,BILI TOTAL,BILI DIRECT,ALK PHOS,ALB,PROT TOTAL) (05/22/2016 2:57 PM PST ) + +---------+ + + [...] + + + | ALK PHOS | 104 | 53 - 128 U/L | [facility] | | | | | | LABORATORY | | | | | | SERVICES, | | | | | | CORE | | + +---------+ + + + | AST(SGOT) | 36 | <=41 U/L | [facility] | | | | | | LABORATORY | | | | | | SERVICES, | | | | | | CORE | | + +---------+ + + + | ALT (SGPT) | 83 (H) | <=60 U/L | [facility] | [...] | + + + + + | [facility] | [address] | [place] [address] | | | SERVICES, CORE | [address] | | | + + + + + CMV PCR QUANTITATION, PLASMA (05/22/2016 2:57 PM PST) + + + + + + | Component | Value | Ref Range | Performed | Pathologist | | | | | At | Signature | + + + + + + | CMV DNA | Undetected | Undetected, | [facility] | | | QUANTITATIO | | Undetected [...] 2 fold may not reflect true | [facility] | | biological changes and must [...] | | | characteristics determined by the [facility] | | | [facility]. It has not been cleared or approved by | | | the Food and Drug Administration. FDA approval is not required for | | | clinical use of this test, and therefore validation was done as | | | required under the requirements of the Clinical Laboratory Improvement | | | Act of 1988. The [facility] | | | Diagnostic Center is a fully licensed and/or accredited clinical | | | laboratory under CLIA, CAP, and the [facility]. | | + + + + + + + + | Performing | Address | City/State/Zipcode | Phone Number | | Organization | | | | + + + + + | [facility] | [address] | [place] [address] | | | DIAGNOSTIC | [address] [...]
--- OUTSIDE RECORDS SUMMARY | ~2019-05-17 | XMS | Encounter Summary ---
Demographics + + + | Address | [address] | | | [place] [address] | + + + | Home Phone | | + + + | Preferred Language | Unknown | + + + | Marital Status | | + + + | Druze Affiliation | SPI | + + + [...] Team Providers + +------+ + | Care Top Tile Decorator Name | Role | Phone | + +------+ + | Zayda Hinton | PCP | | + +------+ + Encounter Details +--------+ + + + + | Date | Type | Department | Care Team | Description | +--------+ + + + + | 11/21/ | Pharmacy | Specialty Pharmacy | | | | 2015 | Visit | Services [address] | | | | | | [address] | | | | | | [place], [place] | | | | | | [address] | | | | | | [phone] | | | +--------+ + + + [...] 2019 | Visit | Malignancy | [address] | | | | | | [address] | | | | | | [place], [place] | | | | | | [address] | | | | | | [phone] | | | | | | | | +--------+---------+ + + + documented as of this encounter Visit Diagnoses Not on filedocumented in this encounter"
--- OUTSIDE RECORDS SUMMARY | ~2019-05-17 | XMS | Encounter Summary ---
Demographics + + + | Address | [address] | | | [place] [address] | + + + | Home Phone | | + + + | Preferred Language | Unknown | + + + | Marital Status | | + + + | Confucianism Affiliation | SPI | + + + | Race | White | + + + | Ethnic Group | Not or | + + + Author + + + | Author | [facility] | + + + | Organization | [facility] | + + + | Address | Unknown | + + + | Phone | Unavailable | + + + Support + + +---------+ + | Name | Relationship | Address | Phone | + + +---------+ + | Gabriel Kelly | ECON | Unknown | | + + +---------+ + Care Team Providers + +------+ + | Care Tax Preparer Name | Role | Phone | + [...] | | | | | | | [address] | | | | | | | [address] | | | | | | | [address] [place], | | | | | | | [place] | | | | | | | [address] | | | | | | | Phone: | | | | | | | [phone] | | | | | | | Fax: | | | | | | | [phone] | +--------+--------+ + + + + Encounter Details +--------+---------+ + + + | Date | Type | Department | Care Team | Description | +--------+---------+ + + + | 03/22/ | Office | Center for | Aspen Cummins FNP | S/P allogeneic bone | | 2016 | Visit | Hematologic | [address] | marrow transplant | | | | Malignancies at | [facility] | (HCC) (Primary Dx); | | | | [facility] | [place], [place] | Acute myeloid | | | | [address] | [address] | leukemia (AML), M4 | | | | [address] Mailcode: | [phone] | (HCC)- primary | | | | [address] [place] | | induction failure | | | | [place], | | | | | | [place] [address] | | | | | | [phone] | | | +--------+---------+ + + + [...] once a week but it's i n [place]. I've given you information for that if [...] MM URD (DPB1 permissive antigen mismatch, male, [id number]) Identifying Data: Khurram Kelly is a 25 [...] his L ankle. He was evaluated at [facility] ED on 06/[address] angiogram negative [...] acute myelomonocytic leukemia. He was referred to [facility] for further evaluation and man agement of his newly dx'd AML. Pt was admitted to [facility] on 05/26/15. Peripheral blood was sent [...] CD34, variable CD56, variable CD117, and dim YU080-atvad mickey; promonocyte immunophenotype (70% by flow): CD11b, [...] last 3-4 weeks. Tried acetaminophen, ibuprofen and Teresa ve without relief. Notes pain is a [...] after c6 of azacitidine [scheduled 04/19/16] 2. Yhmqx-na-Rwtc Disease: Skin bx due to mild rash [...] he was seen in the ED in [place] in late 01/21. Prednisone was increased back [...] daily --> pt provided with information for [employer] to establish peer support and AYA support gasper up resources available at [facility] 7. Musculoskeletal: Pt reports low back pain which has developed over the last 3-4 weeks. Pain increased with activity, no neurologic symptoms associated with pain. Trialed acetami nophen, ibuprofen without relief. --> recommend stretching daily to BID --> encouraged pt to participate in core strengthening exercises; provided resources for fr ee weekly yoga classes for cancer survivors in [place] 8. Follow up --> continue daily azacitidine through 03/24/16 --> RTC to f/u with Yari Garcia MD on , 03/30/16, sooner prn [facility] [address] [place] [address] Mailcode: [id number] [address] documented in this enc ounter [...] | 2019 | Visit | Malignancy | [address] [place] [address] | | | | | | [facility] | | | | | | [place], [place] | | | | | | [address] | | | | | | [phone] | | | | | | | [...]
--- OUTSIDE RECORDS SUMMARY | ~2019-05-17 | XMS | Encounter Summary ---
Demographics + + + | Address | [address] | | | [place] [address] | + + + | Home Phone | | + + + | Preferred Language | Unknown | + + + | Marital Status | | + + + | Restorationist Affiliation | SPI | + + + [...] Team Providers + +------+ + | Care Sheet Metal Shop Supervisor Name | Role | Phone | [...] | | | | myelomonocyt | [address] | | | | | ic leukemia, | [facility] | [facility] | | | | | not having | [address] | [address] | | | | | achieved | [place], [place] | Rd Mailcode: | | | | | remission | [address] | [id number] | | | | | Procedures | Phone: | [place] | | | | | [place] | [phone] | Pavilion | | | | | AZACITIDINE | Fax: | [place], [place] | | | | | INJECTION, 1 | [phone] | [address] | | | | | [place] | | Phone: | | | | | CHM,IV | | [phone] | | | | | INFSN,1 HR | | Fax: | | | | | [place] [facility],IV | | [phone] | | | | | INFSN,ADDL | | | | | | | HR Vidaza | | | +--------+---------+ + + + + Encounter Details +--------+ + + + + | Date | Type | Department | Care Team | Description | +--------+ + + + + | 12/30/ | Clinical | Center for | | Chemotherapy (Vidaza | | 2016 | Support | Hematologic | | ); Intravenous | | | Staff | [facility] | | infusion (Pentam) | | | | [address] | | | | | | [address] Mailcode: | | | | | | [id number] [place] | | | | | | [place], | | | | | | [place] [address] | | | | | | [phone] | | | +--------+ + + + [...] + + + | Blood Pressure | 125/83 | 12/31/2015 8:15 AM | | | | | PDT | | + + + + + | Pulse | 82 | 12/31/2015 8:15 AM | | | | | PDT | | + + + + + | Temperature | 36.9 C (98.5 F) | 12/31/2015 8:15 AM | | | | | PDT | | + + + + + | Respiratory Rate | 16 | 12/31/2015 8:15 AM | | | | | PDT | | + + + + + | Oxygen Saturation | 96% | 12/31/2015 8:15 AM | | | | | PDT | | + + + + + | Inhaled Oxygen | - | - | | | Concentration | | | | + + + + + | Weight | 88.9 kg (195 lb 15.8 | 12/31/2015 8:15 AM | | | | oz) | PDT | | + + + + + | Height | - | - | | + + + + + | Body Mass Index | 25.33 | 08/18/2015 4:35 PM | | | | | PST | | + + + + + documented in this encounter Progress Notes Jessica Ramirez, ZAFAR - 12/31/2015 8:54 AM PDTPatient arrives ambulatory for Day 5 cycle 3 with Vidaza and Pentamidine. 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 He has no other complaints. The patient denies colds, flu , fever, infection, nausea, vomiting, diarrhea, constipation, signs or symptoms of anemia, f atigue, skin rash, urinary issues, and signs or symptoms of bleeding. The patient reports that he is eating well and drinking at least two liters of fluid daily. No labs required today. Patient premedicated for chemo with 8 mg PO Zofran. Chemotherapy was checked by 2 RNs. Vidaza was infused per chemotherapy protocol and comple edward without adverse event. Positive blood return noted pre and post infusion. For infusion details, see MAR. Pentamidine 300 mg from pharmacy was diluted in 250 mL D5W and administered IV over 2 hours . Patient tolerated infusion without any problems. For infusion details, see MAR. All lumen flushed with 5 unit/ml heparin and patient left ambulatory with . He has 3 w eeks off and is returning to hometown of [place]. documented in this encounter Plan of Treatment [...] 2019 | Visit | Malignancy | [address] [facility] | | | | | | [address] | | | | | | [place], [place] | | | | | | [address] | | | | | | [phone] | | | | | | | | +--------+---------+ + + + documented as of this encounter Procedures + +--------+ + + + | Procedure Name | Priori | Date/Time | Associated Diagnosis | Comments | | | ty | | | | + +--------+ + + + | NURSING | Routin | 12/31/2015 | S/P allogeneic | | | COMMUNICATION #5 - | e | 8:13 AM | bone marrow | | | [facility] | | PDT | transplant (HCC) | 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 | | + +--------+ + + + | NURSING | Routin | 12/31/2015 | S/P allogeneic | | | COMMUNICATION #4 - | e | 8:13 AM | bone marrow | | | [facility] | | PDT | transplant (HCC) | 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 | | + +--------+ + + + | NURSING | Routin | 12/31/2015 | S/P allogeneic | | | COMMUNICATION #3 - | e | 8:13 AM | bone marrow | | | [facility] | | PDT | transplant (HCC) | 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[facility])- primary | | | | | | induction failure | | + +--------+ + + + | NURSING | Routin | 12/31/2015 | S/P allogeneic | | | COMMUNICATION #2 - | e | 8:13 AM | bone marrow | | | [facility] | | PDT | transplant (HCC) | 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 | | + +--------+ + + + | NURSING | Routin | 12/31/2015 | S/P allogeneic | | | COMMUNICATION #1 - | e | 8:13 AM | bone marrow | | | [facility] | | PDT | transplant (HCC) | 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 | | + +--------+ + + + | GUIDELINES FOR | Routin | 12/31/2015 | S/P allogeneic | | | ORDERING #1 - [facility] | e | 8:13 AM | bone marrow | | | | | PDT | transplant (HCC) | 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 | | + +--------+ + + + | TREATMENT PARAMETERS | Routin | 12/31/2015 | S/P allogeneic | | | #1 - [facility] | e | 8:13 AM | bone marrow | | | [...] 70 mg in | New Bag | 12/31/19 | 70 mg | 214 | Central | | NaCl 0.9 % IV 70 mg (rounded | | 16 8:49 | | mL/hr | Line | | from 67.84 mg = 32 mg/m2 | | AM PDT | | | | | 2.12 m2 Treatment plan recorded | | | | | | | BSA), intravenous, Administer | | | | | | | over 30 Minutes, ONCE, 1 dose, | | | | | | | Sun12/31/15 at 0815, HIGH RISK | | | | | | | MEDICATION-CHEMOTHERAPY | | | | | | | Administration must be completed | | | | | | | within 1 hour of preparation., | | | | | | + +---------+ +-------+-------+ + +---+---+ | | | +---+---+ + +-------+ + +---+ + | heparin 10 unit/mL IV flush | Given | 12/31/19 | 50 Units | | Central | | syringe 50 Units 50 Units, | | 16 11:32 | | | Line | | Intracatheter, NEEDED, | | AM PDT | | | | | Starting Sun12/31/15 at 0900, | | | | | | | Until Sun12/31/15 at 1814, line | | | | | | | patency | | | | | | + +-------+ + +---+ + +-------+ + +---+---+ | Given | 12/31/19 | 50 Units | | | | | 16 9:30 | | | | | | AM PDT | | | | +-------+ + +---+---+ | Given | 12/31/19 | 50 Units | | | | | 16 9:29 | | | | | | AM PDT | | | | +-------+ + +---+---+ +---+---+ | | | +---+---+ + +-------+ +------+---+---+ | ondansetron (ZOFRAN) tablet 8 | Given | 12/31/19 | 8 mg | | | | mg 8 mg, oral, ONCE, 1 dose, Sun | | 16 8:15 | | | | | 12/31/15 at 0815 | | AM PDT | | | | + +-------+ +------+---+---+ +---+---+ | | | +---+---+ + +---------+ +--------+-------+ + | pentamidine (PENTAM) IV 300 mg | New Bag | 12/31/19 | 300 mg | 128 | Central | | 300 mg, intravenous, ONCE, 1 | | 16 9:18 | | mL/hr | Line | | dose, 12/31/15 at 0815 | | AM PDT | | | | + +---------+ +--------+-------+ + +---+---+ | | | +---+---+ documented in this encounter"
--- OUTSIDE RECORDS SUMMARY | ~2019-05-17 | XMS | Encounter Summary ---
Demographics + + + | Address | [address] | | | [place] [address] | + + + | Home Phone [...] Team Providers + +------+ + | Care Renewals Representative Name | Role | Phone | + +------+ + | Pending Pcp Addition | PCP | Unavailable | + +------+ + Reason for Visit + + + | Reason | Comments | + + + | Lab Draw | | + + + | Chemotherapy | | + + + Chemotherapy (Routine) +--------+--------+ + + + + | [...] Jones MD | | | | | Procedures | | [address] | | | | | [place] | | [address] | | | | | [place] | | [place], | | | | | INJECTION, 1 | | [place] | | | | | [place] | | [address] | | | | | [facility],IV | | Phone: | | | | | INFSN,1 HR | | [phone] | | | | | [place] [facility],IV | | Fax: | | | | | INFSN,ADDL | | [phone] | | | | | HR | | | +--------+--------+ + + + + Encounter Details +--------+ + + + + | Date | Type | Department | Care Team | Description | +--------+ + + + + | 07/22/ | Clinical | Center for | | Lab Draw; | | 2015 | Support | Hematologic | | Chemotherapy | | | Staff | [facility] | | | | | | [address] | | | | | | [place] Mailcode: | | | | | | [facility] [place] | | | | | | [place], | | | | | | [place] [address] | | | | | | [phone] | | | +--------+ + + + [...] + documented as of this encounter Progress Deedee Guardado, ZAFAR - 07/22/2015 2:02 PM PST Assessment Patient reports he is feeling well today. [...] Patient scheduled for provider visit today with Dr Garcia. Labs Power PICC accessed per protocol. Good blood return noted. Appropriate waste discarded. Labs drawn and sent. Power PICC pulse flushed with 20 mL NS. Dressing Change CDI, WNL and due to be changed 07/26/14 Chemotherapy Name: Khurram Kelly Date: 07/22/2015 Physician: Dr Garcia Allergies: Khurram is allergic to chlorhexidine towelette. Labs: Lab Results Component Value Date WBC 1.09* 07/21/2015 HB 8.1* 07/21/2015 HCT 22.8* 07/21/2015 PLT 20* 07/21/2015 BUN 14 07/21/2015 CR 1.1 07/21/2015 For Treatment Done in Clinic Today: see MAR Narrative: Patient was pre-medicated with Ondansetron 8mg PO Chemotherapy was checked by 2 RNs. IV Decitabine was infused per chemotherapy protocol and completed without adverse event. Positive blood return noted pre, during and post infusion . For infusion details, see MAR. Assessment: Tolerated procedure Post - Chemotherapy Pain Score: 0 Patient discharged home. Deedee Benites, RN documented in this enc ounter Plan of Treatment +--------+---------+ + + + | Date | Type | Specialty | Care Team | Description | +--------+---------+ + + + | 11/11/ | Lab | Phlebotomy | | | | 2018 | | | | | +--------+---------+ + + + | 05/19/ | Office | Hematology | Yari Garcia MD | | | 2018 | Visit | Malignancy | [address] | | | | | | [address] | | | | | | [place], [place] | | | | | | [address] | | | | | | [phone] | | | | | | | | +--------+---------+ + + + documented as of this encounter Visit Diagnoses + + | Diagnosis | + + | Acute myeloid leukemia (AML), M4 (HCC) | + + documented in this encounter Administered Medications + +---------+ +-------+--------+------+ | Medication Order | MAR | Action | Dose | Rate | Site | | | Action | Date | | | | + +---------+ +-------+--------+------+ | decitabine (DACOGEN) 42 mg in | New Bag | 07/22/19 | 42 mg | 258.4 | | | NaCl (PF) IV 42 mg (20 mg/m2 | | 16 2:35 | | mL/hr | | | 2.1 m2 Treatment plan recorded | | PM PST | | | | | BSA), intravenous, Administer | | | | | | | over 1 Hours, ONCE, 1 dose, Lupe | | | | | | | 07/22/15 at 1345, HIGH RISK | | | | | | | MEDICATION-CHEMOTHERAPY , | | | | | | + +---------+ +-------+--------+------+ +---+---+ | | | +---+---+ + +-------+ +------+---+---+ | ondansetron (ZOFRAN) tablet 8 | Given | 07/22/19 | 8 mg | | | | mg 8 mg, oral, ONCE, 1 dose, Lupe | | 16 2:00 | | | | | 07/22/15 at 1345 | | PM PST | | | | + +-------+ +------+---+---+ +---+---+ | | | +---+---+ documented in this encounter"
--- OUTSIDE RECORDS SUMMARY | ~2019-05-17 | XMS | Encounter Summary ---
Demographics + + + | Address | [address] | | | [place] [address] | + + + | Home Phone | | + + + | Preferred Language | Unknown | + + + | Marital Status | | + + + | Anabaptist Affiliation | SPI | + + + [...] Providers + +------+ + | Care Glove Sewer Name | Role | Phone | + +------+ + | Pending Pcp Addition | PCP | Unavailable | + +------+ + Reason for Visit + + + | Reason | Comments | + + + | Lab Draw | | + + + | Chemotherapy | Vidaza | + + + Chemotherapy (Routine) +--------+---------+ [...] | ic leukemia, | [address] | [facility] | | | | | not having | [address] | [address] | | | | | achieved | [place], [place] | Rd Mailcode: | | | | | remission | [address] | [id number] | | | | | Procedures | Phone: | [place] | | | | | [place] | [phone] | Pavilion | | | | | AZACITIDINE | Fax: | [place], [place] | | | | | INJECTION, 1 | [phone] | [address] | | | | | [place] | | Phone: | | | | | CH[facility],IV | | [phone] | | | | | INFSN,1 HR | | Fax: | | | | | [place] CH[facility],IV | | [phone] | | | | | INFSN,ADDL | | | | | | | HR Vidaza | | | +--------+---------+ + + + + Encounter Details +--------+ + + + + | Date | Type | Department | Care Team | Description | +--------+ + + + + | 03/24/ | Clinical | Center for | | Lab Draw; | | 2016 | Support | Hematologic | | Chemotherapy | | | Staff | [facility] | | (Buzz) | | | | [address] | | | | | | [place] Mailcode: | | | | | | [facility] [place] | | | | | | [place], | | | | | | [place] [address] | | | | | | [phone] | | | +--------+ + + + [...] + + + | Blood Pressure | 132/73 | 03/24/2016 7:55 AM | | | | | PDT | | + + + + + | Pulse | 77 | 03/24/2016 7:55 AM | | | | | PDT | | + + + + + | Temperature | 36.8 C (98.3 F) | 03/24/2016 7:55 AM | | | | | PDT | | + + + + + | Respiratory Rate | 16 | 03/24/2016 7:55 AM | | | | | PDT | | + + + + + | Oxygen Saturation | 99% | 03/24/2016 7:55 AM | | | | | PDT | | + + + + + | Inhaled Oxygen | - | - | | | Concentration | | | | + + + + + | Weight | 99.7 kg (219 lb 12.8 | 03/24/2016 7:55 AM | | | | oz) | PDT | | + + + + + | Height | - | - | | + + + + + | Body Mass Index | 27.91 | 01/25/2016 8:24 AM | | | | | PDT | | + + + + + documented in this encounter Progress Notes Amy Hardyela, RN - 03/24/2016 8:57 AM PDTFormatting of this note might be different fr om the original. Chemotherapy Nurse Note Physician: Dr. Garcia Allergies: Khurram is allergic to chlorhexidine towelette. Pre-Chemotherapy Pain Score: Patient reports a pain level of today. Narrative: Pt arrived in clinic for scheduled day 5 cycle 6 of Vidaza. Pt states he is feel ing well today. Pt denies any fevers, chills, nausea, vomiting, pain, constipation, diarrhea , edema, sob, numbness, tingling, or mouth sores. Pt reports they are eating and drinking ad equately. Nursing Assessment: Fever: no; Diarrhea: no; SOB / Cough: no; Nausea / Vomiting: no; Anemia / Fatigue: no; Cons tipation: no; Edema: no; S/S Bleeding: no; Mucositis: no; Urinary: no; Neuropathy: no; Rash: no Vascular Access: 24 gauge PIV placed in patient s left forearm, using an IV start kit. P IV with excellent blood return. Labs drawn and sent. PIV flushed with 10 mL NS without any p roblems. Sterile transparent dressing applied. Patient tolerated procedure well. Labs: Lab Results Component Value Date WBC 9.6 03/24/2016 HB 13.6 03/24/2016 HCT 39.0* 03/24/2016 PLT 147* 03/24/2016 BUN 13 03/24/2016 CR 0.9 03/24/2016 For Treatment Done in Clinic Today: see MAR Treatment Provided: Labs results reviewed and met protocol parameters. Pre-medications of 8 mg PO Zofran given as ordered. Chemotherapy was checked by 2 RNs. 75 mg Carfilzomib was infused per chemotherapy protocol and completed without adverse event. Positive blood return noted pre and post infusion. F or infusion details, see MAR. Patient was reminded to call clinic with temp > 100.4, chills, s/s of bleeding or uncontrol led N/V/D/C. Patient verbalizes understanding. All questions answered. Patient was instructe d to check out at the front elevator operator prior to leaving the clinic. Patient d/c d ambulatory wit h in stable condition. Next Appointment in [facility] is on 03/30/16 at 9:20 am with [facility]. Allyson Hardy RN [...] 2019 | Visit | Malignancy | [address] [facility] | | | | | | [address] | | | | | | [place], [place] | | | | | | [address] | | | | | | [phone] | | | | | | | | +--------+---------+ + + + documented as of this encounter Procedures + +--------+ + + + | Procedure Name | Priori | Date/Time | Associated Diagnosis | Comments | | | ty | | | | + +--------+ + + + | CBC+DIFF,POC | Routin | 03/24/2016 | S/P allogeneic | Results for this | | | e | 9:20 AM | bone marrow | procedure are in the | | | | PDT | transplant (HCC) | results section. 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[facility])- primary | | | | | | induction failure | | + +--------+ + + + | BMP + MAG, POC [facility] | Routin | 03/24/2016 | S/P allogeneic | Results for this | | | e | 9:18 AM | bone marrow | procedure are in the | | | | PDT | transplant (HCC) | results section. 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[facility])- primary | | | | | | induction failure | | + +--------+ + + + | TREATMENT PARAMETERS | Routin | 03/24/2016 | 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), M4 | | | | | PDT | ([facility])- primary | | | | | | induction failure | | + +--------+ + + + | TREATMENT PARAMETERS | Routin | 03/24/2016 | 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), M4 | | | | | PDT | ([facility])- primary | | | | | | induction failure | | + +--------+ + + + | TREATMENT PARAMETERS | Routin | 03/24/2016 | 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), M4 | | | | | PDT | ([facility])- primary | | | | | | induction failure | | + +--------+ + + + | TREATMENT PARAMETERS | Routin | 03/24/2016 | 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), M4 | | | | | PDT | ([facility])- primary | | | | | | induction failure | | + +--------+ + + + | TREATMENT PARAMETERS | Routin | 03/24/2016 | 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), M4 | | | | | PDT | ([facility])- primary | | | | | | induction failure | | + +--------+ + + + | NURSING | Routin | 03/24/2016 | Acute myeloid | | | COMMUNICATION #3 - | e | 8:08 AM | leukemia (AML), M4 | | | [facility] | | PDT | ([facility])- primary | | | | | | induction failure | | + +--------+ + + + | NURSING | Routin | 03/24/2016 | Acute myeloid | | | COMMUNICATION #2 - | e | 8:08 AM | leukemia (AML), M4 | | | [facility] | | PDT | ([facility])- primary | | | | | | induction failure | | + +--------+ + + + | TREATMENT PARAMETERS | Routin | 03/24/2016 | Acute myeloid | | | #1 - [facility] | e | 8:08 AM | leukemia (AML), M4 | | | | | PDT | ([facility])- primary | | | | | | induction failure | | + +--------+ + + + | TREATMENT PARAMETERS | Routin | 03/24/2016 | Acute myeloid | | | #1 - [facility] | e | 8:08 AM | leukemia (AML), 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 | | | | | | induction failure | | + +--------+ + + + | NURSING | Routin | 03/24/2016 | Acute myeloid | | | COMMUNICATION #1 - | e | 8:08 AM | leukemia (AML), M4 | | | [facility] | | PDT | (HCC)- primary | | | | | | induction failure | | + +--------+ + + + | LIVER SET | Urgent | 03/24/2016 | S/P allogeneic | Results for this | | (AST,ALT,BILI | | 8:08 AM | bone marrow | procedure are [...] + documented in this encounter Results CBC+DIFF,POC (03/24/2016 9:20 AM PDT) + + + + + + | Component | Value | Ref Range | Performed | Pathologist | | | | | At | Signature | + + + + + + | WBC POC | 9.6 | 4.4 - 11.0 | [facility] - | | | | | 10*3/uL | [facility] | | | | | | [facility] | | | | | | OF CARE | | | | | | TESTS | | + + + + + + | RBC POC | 3.75 (L) | 4.50 - 6.00 | [facility] - | | | | | 10*6/uL | [facility] | | | | | | [facility] | | | | | | OF CARE | | | | | | TESTS | | + + + + + + | HGB POC | 13.6 | 13.5 - 17.5 | [facility] - | | | | | g/dL | [facility] | | | | | | [facility] | | | | | | OF CARE | | | | | | TESTS | | + + + + + + | HCT POC | 39.0 (L) | 41.0 - 53.0 % | [facility] - | | | | | | [place] | | | | | | [facility] | | | | | | OF CARE | | | | | | TESTS | | + + + + + + | MCV POC | 104.0 (H) | 80.0 - 96.0 fL | [facility] - | | | | | | [place] | | | | | | [facility] | | | | | | OF CARE | | | | | | TESTS | | + + + + + + | MCH POC | 36.3 (H) | 28.5 - 32.3 pg | [facility] - | | | | | | [place] | | | | | | [facility] | | | | | | OF CARE | | | | | | TESTS | | + + + + + + | MCHC POC | 34.9 | 33.0 - 35.5 | [facility] - | | | | | g/dL | [facility] | | | | | | [facility] | | | | | | OF CARE | | | | | | TESTS | | + + + + + + | RDW SD, POC | 50.1 (H) | 35.1 - 46.3 fL | [facility] - | | | | | | [facility] | | | | | | [facility] | | | | | | OF CARE | | | | | | TESTS | | + + + + + + | PLT POC | 147 (L) | 150 - 400 | [facility] [...] [facility] | | | | | | [place] | | | | | | OF CARE | | | | | | TESTS | | + + + + + + | NEUTROPHIL% | 76.5 (H) | 50.0 - 70.0 % | [facility] - | | | POC | | | [place] | | | | | | [facility] | | | | | | OF CARE | | | | | | TESTS | | + + + + + + | LYMPH% POC | 12.9 (L) | 18 - 42 % | [facility] - | | | | | | [place] | | | | | | [facility] | | | | | | OF CARE | | | | | | TESTS | | + + + + + + | MONO %, POC | 8.3 | 3.5 - 9.0 % | [facility] [...] + + | BASO %, POC | 0.6 | 0.0 - 2.0 % | [facility] - | | | | | | [facility] | | | | | | [facility] | | | | | | OF CARE | | | | | | TESTS | | + + + + + + | NEUTROPHIL# | 7.3 | 1.8 - 7.7 | [facility] - | | | POC | | 10*3/uL | [place] | | | | | | [facility] | | | | | | OF CARE | | | | | | TESTS | | + + + + + + | LYMPH# POC | 1.2 | 1.0 - 4.8 | [facility] - | | | | | 10*3/uL | [facility] | | | | | | [facility] | | | | | | OF CARE | | | | | | TESTS | | + + + + + + | MONO #, POC | 0.8 | 0.1 - 0.9 | [facility] - [...] S[facility] | [address] | [place], [place] | | | [facility]INT OF CARE | [address] | [address] | | | TESTS | | | | + + + + + BMP + PHIL ROBERTSON CHDavid (03/24/2016 9:18 AM PDT) + +---------+ + + + | Component | Value | Ref Range | Performed | Pathologist | | | | | At | Signature | + +---------+ + + + | SODIUM, POC | 135 | 134 - 143 | [facility] - [...] + | GLUCOSE, | 105 (H) | 60 - 99 mg/dL | [...] + + + | LDH, POC | 246 (H) | 0 - 206 U/L | [...] + | [facility] | [address] | [place], [place] | | | [place] [facility] OF CARE | [address] | [address] | | | TESTS | | | | + + + + + LIVER SET (AST,ALT,BILI TOTAL,BILI DIRECT,ALK PHOS,ALB,PROT TOTAL) (03/24/2016 8:08 AM PDT ) + +---------+ + + [...] + + + | ALK PHOS | 88 | 53 - 128 U/L | [facility] | | | | | | LABORATORY | | | | | | SERVICES, | | | | | | CORE | | + +---------+ + + + | AST(SGOT) | 107 (H) | <=41 U/L | [facility] | | | | | | LABORATORY | | | | | | SERVICES, | | | | | | CORE | | + +---------+ + + + | ALT (SGPT) | 96 (H) | <=60 U/L | [facility] | | | | | | LABORATORY | | | | | | SERVICES, | | | | | | CORE | | + +---------+ + + + | TOTAL | 7.3 | 6.4 - 8.2 g/dL | [facility] | | | PROTEIN, | | | LABORATORY | | | PLASMA | | | SERVICES, | | | (LAB) | | | CORE | | + +---------+ + + + | AST CMNT | Mk Hemo | | [facility] | | | | | | LABORATORY | | | | | | SERVICES, | | | | | | CORE | | + +---------+ + + + | BILI T CMNT | [facility] Hem[facility] | | [facility] | | | | | | LABORATORY | | | | | | SERVICES, | | | | | | CORE | | + +---------+ + + + | BILI D CMNT | [facility] Hemo | | [facility] | | | [...] + | YESSICA LOZA | [address] | [place] [address] | | | SERVICES, CORE | WALLY [...] 75 mg in | New Bag | 03/24/20 | 75 mg | 215 | | | NaCl 0.9 % IV 75 mg (rounded | | 16 9:12 | | mL/hr | | | from 72.64 mg = 32 mg/m2 | | AM PDT | | | | | 2.27 m2 Treatment plan recorded | | | | | | | BSA), intravenous, Administer | | | | | | | over 30 Minutes, ONCE, 1 dose, | | | | | | | 03/24/16 at 0845, HIGH RISK | | | | | | | MEDICATION-CHEMOTHERAPY | | | | | | | Administration must be completed | | | | | | | within 1 hour of preparation., | | | | | | + +---------+ +-------+-------+------+ +---+---+ | | | +---+---+ + +-------+ +------+---+---+ | ondansetron (ZOFRAN) tablet 8 | Given | 03/24/20 | 8 mg | | | | mg 8 mg, oral, ONCE, 1 dose, Fri | | 16 8:35 | | | | | 03/24/16 at 0815 | | AM PDT | | | | + +-------+ +------+---+---+ +---+---+ | | | +---+---+ documented in this encounter"
--- OUTSIDE RECORDS SUMMARY | ~2019-05-17 | XMS | Encounter Summary ---
Demographics + + + | Address | [address] | | | [place] [address] | + + + | Home Phone | | + + + | Preferred Language | Unknown | + + + | Marital Status | | + + + | Latter-Day Affiliation | SPI | + + + | Race | White | + + + | Ethnic Group | Not or | + + + Author + + + | Author | [facility] | + + + | Organization | [facility] | + + + | Address | Unknown | + + + | Phone | Unavailable | + + + Support + + +---------+ + | Name | Relationship | Address | Phone | + + +---------+ + | Gabriel Kelly | ECON | Unknown | | + + +---------+ + Care Team Providers + +------+ + | Care Glass Handler Name | Role | Phone | + +------+ + | Pending Pcp Addition | PCP | Unavailable | + +------+ + Encounter Details +--------+ + + + + | Date | Type | Department | Care Team | Description | +--------+ + + + + | 09/27/ | 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)- primary | 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 | | | | | | ([facility]) | | + +--------+ + + + | ENGRAFTMENT | Routin | 09/27/2015 | Acute myeloid | Results for this | | POST-TRANSPLANT, | e | | leukemia (AML), M4 | procedure are in the | | BONE MARROW (PP) | | | ([facility])- primary | results section. 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 | | | | | | (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)- primary | results section. 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 | | | | | | ([facility]) | | + +--------+ + + + documented in this encounter Results ENGRAFTMENT POST TRANSPLANT, BONE MARROW (LABEL) (09/27/2015 10:10 AM PDT) + + | Specimen | + + | Bone marrow - Bone | | marrow structure | | (body structure) | + + + + + + + | Performing | Address | City/State/Zipcode | Phone Number | | Organization | | | | + + + + + | [facility] | [address], | [place] [address] | | | DIAGNOSTIC | [address] | | | | LABORATORIES | | | | + + + + + ENGRAFTMENT POST TRANSPLANT, BONE MARROW (PP) (09/27/2015) + + + + + + | Component | Value | Ref Range | Performed | Pathologist | | | | | At | Signature | + + + + + + | ENGRAFTMENT | A Post-Transplant | | [facility] | | | POST | Engraftment, Bone | | DIAGNOSTIC | | | TRANSPLANT, | MarrowSpecimen Type: | | | | | BONE | Bone Marrow (EDTA); Date | | LABORATORIE | | | MARROW | of Transplant: 08/26/15; | | S | | | | DonorName/ID: [id number] | | | | | | [id number] | | | | | | indications: Acute | | | | | | myeloid leukemia; Status | | | | | | post bone | | | | | | marrowtransplant | | | | | | Patient Results:No Host | | | | | | Cells Detected | | | | | | Interpretation:PCR based | | | | | | DNA profiling using | | | | | | Short Tandem repeat | | | | | | (STR) markers on | | | | | | thispost-transplant | | | | | | specimen shows no | | | | | | detectable host-specific | | | | | | material(compared to | | | | | | the pre-transplant | | | | | | recipient specimen). | | | | | | This result | | | | | | isconsistent with | | | | | | complete or near | | | | | | complete engraftment. | | | | | | The minimal amountof | | | | | | host specific material | | | | | | detectable with this | | | | | | assay is approximately | | | | | | 5%(i.e., the low-level | | | | | | sensitivity of the | | | | | | assay). If you have | | | | | | any questionsregarding | | | | | | this report please | | | | | | contact the lab at your | | | | | | convenience. | | | | | | Methods:The DNA | | | | | | Laboratory received | | | | | | specimens from the named | | | | | | donor and recipientfor | | | | | | the purpose of | | | | | | post-transplant | | | | | | engraftment testing. | | | | | | You were | | | | | | seekingclarification of | | | | | | the recipient's | | | | | | engraftment status post | | | | | | bone | | | | | | marrowtransplantation. | | | | | | PCR-based DNA profile | | | | | | testing was performed | | | | | | usingcapillary | | | | | | electrophoresis fragment | | | | | | analysis with | | | | | | fluorescent multicolor | | | | | | dyetechnology. Short | | | | | | tandem repeat (STR) | | | | | | markers with discrete | | | | | | allele sizesat 10 | | | | | | polymorphic loci are | | | | | | amplified in a multiplex | | | | | | PCR reaction. The | | | | | | STRloci [id number], vWA, | | | | | | FGA, [id number], [id number], | | | | | | [id number], F4C134, [id number], | | | | | | [id number],and amelogenin | | | | | | are used to identify and | | | | | | quantify recipient and | | | | | | donoralleles for | | | | | | assessment of | | | | | | post-transplant | | | | | | engraftment status. | | | | | | | | | | | | This test was developed | | | | | | and its performance | | | | | | characteristics | | | | | | determined bythe [facility] | | | | | | [facility] | | | | | | [facility] | | | | | | [facility]. | | | | | | Ithas not been cleared | | | | | | or approved by the Food | | | | | | and Drug | | | | | | Administration. | | | | | | FDAapproval is not | | | | | | required for the | | | | | | clinical use of the | | | | | | test, and | | | | | | thereforevalidation was | | | | | | done as required under | | | | | | the requirements of the | | | | | | ClinicalLaboratory | | | | | | Improvement Act of 1987. | | | | | | The [facility] | | | [facility] | | | | | | is a fully licensed | | | | | | and/or accredited | | | | | | clinical laboratoryunder | | | | | | CLIA, CAP, and the | | | | | | State of [place]. | | | | | | Rendering | | | | | | Diagnostician: Loli | | | | | | Carol PhD, ABMG, | | | | | | FACMGClinical Molecular | | | | | | GeneticistElectronically | | | | | | Signed 10/05/2015 | | | | | | 2:28PMRendering | | | | | | Diagnostician: Aspen | | | | | | Joceline PERERA, ABMG, | | | | | | FACMGClinical | | | | | | GeneticistElectronically | | | | | | Signed 10/05/2015 | | | | | | 6:04PM | | | | + + + + + + + + | Specimen | + + | Bone marrow - Blood | + + + + + + + | Performing | Address | City/State/Zipcode | Phone Number | | Organization | | | | + + + + + | [facility] | [address] | [place] [address] | | | DIAGNOSTIC | [address] [...]
--- OUTSIDE RECORDS SUMMARY | ~2019-05-17 | XMS | Encounter Summary ---
Demographics + + + | Address | [address] | | | [place] [address] | + + + | Home Phone | | + + + | Preferred Language | Unknown | + + + | Marital Status | | + + + | Jewish Affiliation | SPI | + + + | Race | White | + + + | Ethnic Group | Not or | + + + Author + + + | Author | [facility] | + + + | Organization | [facility] | + + + | Address | Unknown | + + + | Phone | Unavailable | + + + Support + + +---------+ + | Name | Relationship | Address | Phone | + + +---------+ + | Gabriel Kelly | ECON | Unknown | | + + +---------+ + Care Team Providers + +------+ + | Care Hands Assembler Name | Role | Phone | [...] | | | | | achieved | [facility], [place] | [id number] | | | | | remission | [address] | [facility] | | | | | | Phone: | [facility] | | | | | Procedures | [phone] | [place], [place] | | | | | Post BMT | Fax: | [address] | | | | | Auth to | [phone] | Phone: | | | | | included | | [phone] | | | | | facility, | | Fax: | | | | | diagnostics, | | [phone] | | | | | office | | | | | | | visits and | | | | | | | surgery | | | +--------+---------+ + + + + Encounter Details +--------+---------+ + + + | Date | Type | Department | Care Team | Description | +--------+---------+ + + + | 10/13/ | Office | Center for | Saunders, Em L, | Acute myeloid | | 2016 | Visit | Hematologic | PA-C [address] [facility] | leukemia (AML), M4 | | | | Malignancies at | [address] | ([facility] primary | | | | [facility] | [place], [place] | induction failure | | | | [address] [facility] | [address] | (Primary Dx); S/P | | | | [address] [facility] Mailcode: | [phone] | allogeneic bone | | | | [id number] | | marrow transplant | | | | [facility] [place], | | ([facility]) | | | | [place] [address] | | | | | | [phone] | | | +--------+---------+ + + + [...] + + + | Blood Pressure | 128/88 | 10/14/2015 10:55 AM | | | | | PDT | | + + + + + | Pulse | 71 | 10/14/2015 10:55 AM | | | | | PDT | | + + + + + | Temperature | 36.9 C (98.4 F) | 10/14/2015 10:55 AM | | | | | PDT | | + + + + + | Respiratory Rate | 16 | 10/14/2015 10:55 AM | | | | | PDT | | + + + + + | Oxygen Saturation | 98% | 10/14/2015 10:55 AM | | | | | PDT | | + + + + + | Inhaled Oxygen | - | - | | | Concentration | | | | + + + + + | Weight | 79.5 kg (175 lb 4.3 | 10/14/2015 10:55 AM | | | | oz) | PDT | | + + + + + | Height | - | - | | + + + + + | Body Mass Index | 22.66 | 08/18/2015 4:35 PM | | | | | PST | | + + + + + documented in this encounter Patient Instructions Patient Instructions Em Saunders PA-C - 10/14/2015 8:22 AM PDT-Take your temperature regularly (3-4 x daily) and to call immediately for a temperature of 100.4 or greater. -We'll call you to adjust your Tacrolimus if necessary. -Decrease Prednisone down to 20 mg once a day. -HOLD the beclomethasone and budesonide. If you develop new stomach upset similar to before , then please restart the beclomethasone and budesonide. Please call to notify us if you res tart these medications. documented in this encounter Progress Notes Em Saunders PA-C - 10/14/2015 8:23 AM PDTFormatting of this note might be different f rom the original. 10/14/2015 [facility] Physician: Yari Garcia MD Local Oncologist: Yari Garcia MD PCP: Pending Pcp ADDITION Hematologic Malignancy: Primary refractory AML Conditioning regimen: tBuCy Date of transplant: 08/27/2015 (two day 0s) Donor: MM URD (DPB1 permissive antigen mismatch, male, [id number]) Hematologic History: Khurram Kelly is a 25 y.o. CM with a PMH of pericarditis who was in his GH u ntil 03/13/15 (the night of his [...] his L ankle. He was evaluated at [facility] ED on 06/[address] angiogram negative [...] acute myelomonocytic leukemia. He was referred to [facility] for further evaluation and man agement of his newly dx'd AML. Pt was admitted to [facility] on 05/26/15. Peripheral blood was sent [...] CD34, variable CD56, variable CD117, and dim [id number]-islaj mickey; promonocyte immunophenotype (70% by flow): CD11b, [...] of primary refractory AML, currently d ay +48, s/p tBuCy conditioned MM URD SCT. Interval History: presents to clinic today for his routine scheduled visit. He is accompanied by his who is his caregiver in clinic today. He has improved since our last visit with his diarrhea now resolved and no abdominal discomfort. His stools are now formed and the low grade abdominal discomfort is gone. He thinks the GI upset may have been related to eating too much dairy. His stomach and bowels have been improved since stopping the dairy and his g ut is now back to normal for him. He denies n/v. He continues to take the Zofran BID. He has a great appetite and is eating well. He gained 7 pounds since our last visit. He is taking in lots of fluids, easily 2 liters per day. His energy is good and he continues to be active . He did scale back the activity the past couple of days since he was becoming sore from maeve ng so active. His knees are sore and are a 2 out of 10 on the pain scale today. The soreness reminds him of being sore in high school when he played sports. No fatigue. He denies rash or fever. He agrees that a trial of stopping the B&B would be good as his GI upset from befo re may have been related to dairy and not GvHD of the gut. Review of Systems: General: Denies fevers, chills, weight loss or sweats. ENT: Denies changes in vision or double vision. Denies hearing loss, nosebleeds, nasal vinny estion, difficulty swallowing, hoarseness or sore throat. Respiratory: Denies shortness of breath, coughing up blood, excessive sputum, cough, chest discomfort or wheezing. Musculoskeletal: No joint pain, swelling, stiffness, back pain, arthritis, muscle aches or muscle cramps. Cardiovascular: No chest pain,lightheadedness,shortness of breath. Gastrointestinal: Denies indigestion, nausea, vomiting, diarrhea, constipation, bloody stoo ls or dark tarry stools. Skin: Denies rash Psychological: No abnormal anxiety, depression. Remainder of ROS is otherwise negative. Current Medication List Name Sig ACYCLOVIR 800 MG TABLET Take 1 tablet by mouth two times daily. ALPRAZOLAM 0.5 MG TABLET Take 2 tablets by mouth three times daily as needed for anxiety. AMLODIPINE 5 MG TABLET Take one-half tablet by mouth once daily. BECLOMETHASONE 1 MG/ML ORAL SUSPENSION (OUTPATIENT) Take 1 mL by mouth four times daily. BUDESONIDE DR & ER 3 MG CAPSULE,DELAYED,EXTENDED RELEASE Take 1 capsule by mouth three time s daily. CETIRIZINE 10 MG TABLET Take 1 tablet by mouth once daily. Indications: Seasonal Allergic R hinitis DOCUSATE SODIUM 100 MG CAPSULE Take 1 capsule by mouth once daily. LACTULOSE 10 GRAM ORAL PACKET Take 10 grams (one packet) by mouth twice daily as needed (co nstipation). OLANZAPINE 10 MG TABLET Take 1 tablet by mouth once daily at bedtime. OMEPRAZOLE 20 MG CAPSULE,DELAYED RELEASE Take 1 capsule by mouth before breakfast. ONDANSETRON HCL 4 MG TABLET Take 1 to 2 tablets by mouth every twelve hours as needed for n ausea/vomiting. OXYCODONE 15 MG TABLET Take 1 to 2 tablets by mouth every four hours as needed for moderate pain. POSACONAZOLE 100 MG TABLET,DELAYED RELEASE Take 3 tablets by mouth once daily. PREDNISOLONE ACETATE 1 % EYE DROPS,SUSPENSION Instill 1 drop into the right eye two times d aily. PREDNISONE 10 MG TABLET Take 20 mg (two tablets) once daily. PROCHLORPERAZINE MALEATE 5 MG TABLET Take 1 tablet by mouth every six hours as needed for n ausea/vomiting. Max dose: 40 mg/day SENNOSIDES-DOCUSATE SODIUM 8.6 MG-50 MG TABLET Take 1 tablet by mouth twice daily as needed (constipation). TACROLIMUS 0.5 MG CAPSULE Take 1 mg (one 1 mg capsule) by mouth in the morning and 1 mg (on e 1 mg capsule) in the evening. [place] 0.5 mg capsules for future use. TACROLIMUS 1 MG CAPSULE Take 1 mg (one 1 mg capsule) by mouth in the morning and 1 mg (one 1 mg capsule) in the evening. [place] 0.5 mg capsules for future use. TRIAMCINOLONE ACETONIDE 0.1 % TOPICAL CREAM Apply to affected area three times daily. Apply thin film to affected areas. SULFAMETHOXAZOLE 800 MG-TRIMETHOPRIM 160 MG TABLET Take 1 tablet by mouth twice daily (ever y Sunday and ). Vitals: BP 128/88 | Pulse 71 | Temp (Src) 36.9 C (98.4 F) (Oral) | RR 16 | Wt 79.5 kg (175 lb 4 .3 oz) | SpO2 98% | BMI 22.66 kg/(m^2) Pre-transplant weight 165 pounds Physical Exam: General: This is a male in no acute distress, sitting up in chair. HEENT: Sclerae anicteric. Mucosa pink and moist without erythema or exudate. Skin: No rash or lesions. Chest: Lungs clear to auscultation bilat. Normal effort. CV: RRR, no murmurs. Abdomen: S/NT/ND with NABS. No HSM appreciated. Extremities: Pulses strong and equal bilaterally. No c/c/e. Neuro: Alert and oriented x 3. Grossly nonfocal exam. CVC: Central line is a Neostar catheter w/o induration or inflammation. Laboratory Results: CBC with diff: Last 72 hours (or 3 results) Recent Labs 10/14/15 1101 WBC 10.7 HB 10.5* HCT 31.8* PLT 132* MONOPERC 7.4 BASOPERC 0.2 EOSPERC 1.1 Chemistries: Last 72 Hours (or 3 results): Recent Labs 09/10/15 2300 09/11/15 2313 09/12/15 2326 10/04/15 1225 10/07/15 1015 10/07/15 1043 10/11/15 1021 10/11/15 1046 10/14/15 1103 NA 144 143 142 < > -- < > -- 139 -- 141 137 K 3.7 3.9 3.9 < > -- < > -- 3.9 -- 4.1 4.3 CL 113* 109* 109* < > -- < > -- 97 -- 103 102 BICARB 21 25 25 < > -- < > -- 29 -- 25 28 BUN 22* 19 18 < > -- < > -- 20 -- 15 16 CR 0.91 0.94 0.96 < > -- < > -- 0.7 -- 0.7 0.6* GLU 90 95 121* < > -- < > -- 106* -- 104* 125* CA 8.1* 8.0* 8.3* < > -- < > -- 9.3 -- 9.4 9.3 AST 18 22 19 < > 26 -- 25 -- 22 -- -- ALT 28 31 35 < > 88* -- 87* -- 68* -- -- AP 63 83 96 < > 74 -- 66 -- 59 -- -- TBILI 0.5 0.5 0.4 < > 0.3 -- 0.3 -- 0.3 -- -- TP 5.8* 6.1* 6.1* < > 6.9 -- 6.7 -- 6.7 -- -- ALB 2.7* 2.9* 3.0* < > 3.9 -- 3.9 -- 3.8 -- -- ANIONGAP 10 9 8 -- -- -- -- -- -- -- -- ANIONALBCOR 13* 11 10 -- -- -- -- -- -- -- -- < > = values in this interval not displayed. Hematology: Hematologic Malignancy: Refractory AML Conditioning Regimen: tBuCy Stem cell transplant -Stem Cell product: tolerated MM (DPB1 permissive antigen mismatch) stem cell product on -08/27 (two day 0s) without complications. CD 34 count = 5.96 x 10^6 per kg -BMT Day: +48 Pertinent Diagnostics: -Around day + 30 repeat [...] of donor origin). CBC reviewed and reveals anemia and leukocytosis. Platelet recovered independent of transfu cricket support. -Around day + 60, we will return him to his primary attending with our BMT service, Dr. Isela sheldon, first appointment scheduled for 10/25/15. Supportive Care: Growth Factor: last dose of Neupogen given on 09/11/15 Labs: Continue to check CBC twice weekly Transfusion parameters: -Transfuse PRBCs for HCT <21% if asymptomatic OR <24% if symptomatic -Transfuse PPH for platelet count <10,000 sooner for s/s bleeding GVHD: Skin GvHD: patient developed rash early in transplant course during SCT admission. Derm bio psy done 08/27/15 showing subtle vacuolar interface dermatitis, the changes are consistent wi th eruption of lymphocyte recovery and early mild epbeu-xblqhk-[id number] disease. On 09/13, rash in volved ~15% BSA. Patient with progression of rash to chest, abd, back, upper arms bilat, thi ghs bilat (front and back); ~56% BSA at wrost on 09/14. Rash now resolved as of 10/06 clinic vi sit. -Triamcinolone cream 0.1% TID to rash -Prednisone 1 mg/kg/d (35 mg BID), started on 09/15/15 and tapered as below: -09/20 reduced steroids by 25% per Dr. Garcia, taper down prednisone to 35 mg in morning and 15 mg in late afternoon. -09/23 taper down by 50% from original dose per Dr. Garcia, prednisone 35 mg daily. Then tap er by 5 mg weekly as long as GvHD skin remains improved. -Taper prednisone down to 20 mg once daily as of 10/13. Next taper planned 10/21/15 if rash continues to improve. 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 With patients high risk for relapse and known GvHD skin wi ll start empiric treatment with B&B. -If symptoms worsen then will likely plan to have GI biopsies done. -Beclomethasone 1 mL suspension four times daily for suspected GvHD upper gut symptoms, st arted 10/06 -on hold as of 10/13 for trial as patient suspect symptoms were due to dairy -Budesonide 3 mg capsule three times daily for possible GvHD lower gut symptoms, started -on hold as of 10/13 for trial as patient suspect symptoms were due to dairy -IST as below Prophylaxis/Treatment: -Tacrolimus with levels biweekly and goal 5-10 -Methotrexate 15 mg/m IV on day +1, and 10 mg/m IV on days +3, +6 and +11. Received al l doses in full with leucovorin rescue after day +6 and +11 doses. Acute GvHD Staging: Skin: Grade 0 Gut: Grade 0 Liver: Grade 0 Overall [...] will have occasional emesis randomly. Improved with Zofran BID -Zofran BID as of 09/20 Constipation: suspect due to combination of Zofran BID and oxycodone PRN -docusate 1 tablet 1-2x/day as needed for constipation. Hold for loose stools. /Renal: No acute issues Neuro/Psych: Depression- trial of Zoloft 25 mg daily, patient stopped on 09/15/15 as he felt more withdraw n since starting the medication. Anxiety -continue Xanax 1 mg TID PRN Insomnia -Zyprexa 10 mg HS Infectious Disease: No acute issues. Afebrile and no evidence of acute infection at this time. The patient i s reminded to take his temperature regularly (3-4 x daily) and to call immediately for a tem perature of 100.4 or greater. Antiviral: Acyclovir for antiviral prophylaxis. The CMV will be followed weekly for val ctivation by PCR. Lab Results Component Value Date CMVQUANTPCR Undetected 10/11/2015 CMVQUANTPCR Undetected 10/04/2015 CMVQUANTPCR Undetected 09/27/2015 CMVQUANTPCR Undetected 09/21/2015 Antifungal: Posaconazole as of 09/15/15 with HD steroids for antifungal prophylaxis and we wi ll follow weekly Galactomannan assays. Lab Results Component Value Date GALACTO Negative 10/11/2015 PCP proph: Pentamidine IV for PCP prophlaxis given on 09/12/15. Bactrim for PCP coverage star edward 10/11/15. IgG: IgG level will be followed every other week and replaced prn if it falls below 300 . Lab Results Component Value Date IGG 553* 10/04/2015 Toxo: Pt is toxo negative 08/09/2015, no further testing required. Fluid/Nutrition/Lytes: Nutrition: Current diet -- low bacteria. Encourage po intake as tolerated with a goal of co nsistently drinking at least 2L calorie containing fluids per day. IV Fluid: None indicated today. Lytes: Continue to check chemistries twice weekly. Replace per supportive care protocol. -Hypomagnesemia: replace in clinic PRN Plan: -The tacrolimus dose will be adjusted when the tacrolimus trough is available. -Prednisone 20 mg once daily as of 10/13. Next taper planned 10/21/15 if rash continues to imp rove. -HOLD the beclomethasone and budesonide. He is instructed to restart the medications if he were to develop any new stomach upset similar to before. He is also to call the clinic to no tify us that he has restart the medications. -If GI symptoms remain improved/resolved then will discuss titrating down on Zofran at next clinic visit. -Return to clinic 10/18/15 to see me, sooner prn. Em Saunders PA-C [facility] AT [address] Mailcode: [id number] [address] documented in this encounter Plan of Treatment [...] 2018 | Visit | Malignancy | [address] [facility] | | | | | | [address] | | | | | | [place], [place] | | | | | | [address] | | | | | | [phone] | | | | | | | | +--------+---------+ + + + documented as of this encounter Results JEANETH + PHIL ROBERTSON CHM (10/18/2015 10:33 AM PDT) + +---------+ + + + [...] +---------+ + + + | GLUCOSE, | 90 | 60 - 99 mg/dL | [facility] [...] + + + | BUN, POC | 16 | 6 - 20 mg/dL [...] + + + | LDH, POC | 230 (H) | 0 - 206 U/L | [facility] | | | | | | [facility] | | | | | | [facility] PO[facility] | | | | | | OF CARE | | | | | | TESTS | | + +---------+ + + + | MAGNESIUM, | 1.8 | 1.8 - 2.5 mg/dL | [facility] [...] + | [facility] | [address] | [place], [place] | | | [facility]IE CARTER OF CARE | [facility] | [address] | | | TESTS | | | | + + + + + CBC+DIFF,POC (10/18/2015 10:31 AM PDT) + + + + + + | Component | Value | Ref Range | Performed | Pathologist | | | | | At | Signature | + + + + + + | WBC POC | 6.2 | 4.4 - 11.0 | [facility] - | | | | | 10*3/uL | [facility] | | | | | | [facility]UTHIE CARTER | | | | | | OF CARE | | | | | | TESTS | | + + + + + + | RBC POC | 3.40 (L) | 4.50 - 6.00 | [facility] [...] + + + | HCT POC | 33.4 (L) | 41.0 - 53.0 % | [facility] | | | | | | [facility] | | | | | | [facility] | | | | | | OF CARE | | | | | | TESTS | | + + + + + + | MCV POC | 98.2 (H) | 80.0 - 96.0 fL | [facility] | | | | | | [facility] | | | | | | [facility] | | | | | | OF CARE | | | | | | TESTS | | + + + + + + | MCH POC | 32.6 (H) | 28.5 - 32.3 pg | [facility] | | | | | | [facility] | | | | | | [facility] | | | | | | OF CARE | | | | | | TESTS | | + + + + + + | MCHC POC | 33.2 | 33.0 - 35.5 | [facility] - | | | | | g/dL | [facility] | | | | | | RUTHIE CARTER | | | | | | OF CARE | | | | | | TESTS | | + + + + + + | RDW SD, POC | 62.5 (H) | 35.1 - 46.3 fL | [facility] | | | | | | [facility] | | | | | | [facility] | | | | | | OF CARE | | | | | | TESTS | | + + + + + + | PLT POC | 115 (L) | 150 - 400 | [facility] [...] + + + + | NEUTROPHIL% | 65.6 | 50.0 - 70.0 % | [facility] - | | | POC | | | [facility] | | | | | | [facility]INT | | | | | | OF CARE | | | | | | TESTS | | + + + + + + | LYMPH% POC | 16.4 (L) | 18 - 42 % | [facility] | | | | | | [facility] | | | | | | [facility], POINT | | | | | | OF CARE | | | | | | TESTS | | + + + + + + | MONO %, POC | 10.4 (H) | 3.5 - 9.0 % | [facility] | | | | | | [facility] | | | | | | [facility], POINT | | | | | | OF CARE | | | | | | TESTS | | + + + + + + | EOS %, POC | 7.3 (H) | 1.0 - 3.0 % | [facility] | | | | | | [facility] | | | | | | [facility], POINT | | | | | | OF CARE | | | | | | TESTS | | + + + + + + | BASO %, POC | 0.3 | 0.0 - 2.0 % | [facility] | | | | | | [facility] | | | | | | [facility], POINT | | | | | | OF CARE | | | | | | TESTS | | + + + + + + | NEUTROPHIL# | 4.0 | 1.8 - 7.7 | [facility] - | | | POC | | 10*3/uL | [facility] | | | | | | [facility] POINT | | | | | | OF CARE | | | | | | TESTS | | + + + + + + | LYMPH# POC | 1.0 | 1.0 - 4.8 | [facility] - [...] + + | EOS #, POC | 0.4 | 0.0 - 0.5 | [facility] - [...] [facility] | [address] | [place], [place] | | | [facility] OF CARE | [address] | [address] | | | TESTS | | | | + + + + + TACROLIMUS, WHOLE BLOOD (10/18/2015 10:15 AM PDT) + +-------+ + + + | Component | Value | Ref Range | Performed | Pathologist | | | | | At | Signature | + +-------+ + + + | TACROLIMUS | 8.5 | 5.0 - 15.0 | [facility] | [...] | + + + + + | [facility] | [address] | [place] [address] | | | SERVICES, SPECIAL | [address] | | | | IMM + COAG | | | | + + + + + CMV PCR QUANTITATION, PLASMA (10/18/2015 10:15 AM PDT) + + + + + + | Component | Value | Ref Range | Performed | Pathologist | | | | | At | Signature | + + + + + + | CMV DNA | Weak Positive (A) | Undetected, | [facility] | | | [...] Performed At | + + + | The CMV DNA signal is just barely above background consistent | [facility] | | with an extremely low level CMV viremia near or below our typical | DIAGNOSTIC | | detection limit of 200 IU/mL. Changes in viral load of less than 2 | LABORATORIES | | fold may not reflect true biological changes and must be interpreted | | | cautiously. High or serially rising CMV loads may indicate active or | | | impending CMV disease or poor antiviral therapy response. | | | Undetected results suggest either an absence of CMV viremia or the | | | presence of low-level viremia below the lower sensitivity limit of 200 | | | IU/mL. Reportable range = 200-5,000,000,000 CMV IU/mL of plasma | | | Detection limit: At or below 200 CMV IU/mL This test was developed | | | and its performance characteristics determined by the [facility] | | | [facility]. It has not been | | | cleared or approved by the Food and Drug Administration. FDA approval | | | is not required for clinical use of this test, and therefore | | | validation was done as required under the requirements of the Clinical | | | Laboratory Improvement Act of 1988. The [facility] | | | [facility] is a fully licensed and/or | | | accredited clinical laboratory under CLIA, [place], and the State of | | | [place]. | | + + + + + + + + | Performing | Address | City/State/[facility] | Phone Number | | Organization | | | | + + + + + | [facility] | [address] | [place] [address] | | | DIAGNOSTIC | [address] | | | | LABORATORIES | | | | + + + + + ASPERGILLUS GALACTOMANNAN ANTIGEN, SERUM (10/18/2015 10:15 AM PDT) + + + + + + | Component | Value | Ref Range | Performed | Pathologist | | | | | At | Signature | + + + + + + | ASPERGILLUS | Negative | Negative | [facility] | | | | | | LABORATORY | | | GALACTOMANN | | | SERVICES, | | | AN AG | | | SPECIAL IMM | | | | | | + COAG | | + + + + + + | ASP GAL | 0.14 | <=0.49 Index | [facility] | | | INDEX, SER | | | LABORATORY | | | | | | SERVICES, | | | | | | SPECIAL IMM | | | | | | + COAG | | + + + + + + + + | Specimen | + + | Blood - Blood | | (substance) | + + + + + | Narrative | Performed At | + + + | INTERPRETATION: Aspergillus galactomannan Antigen by EIA | [facility] | | | LABORATORY | | This | SERVICES, | | test has not been evaluated in neonates and reference ranges have not | SPECIAL IMM + | | been established for this age group. | COAG | | Negative results do not exclude the | | | diagnosis of invasive Aspergillosis. False negative results may be | | | seen in patients receiving concomitant anti-fungals, and | | | patients with chronic granulomatous disease and Job's syndrome. | | | | | | | | | A | | | single positive test result (index equal to or greater than 0.5) | | | should be clinically correlated by testing a separate serum because | | | many agents (e.g. food, antibiotics) may cross-react with the assay. | | | False positive results may also be seen in very young children, | | | patients with altered intestinal barrier, and patients infected | | | with other genre of fungi such as Penicillium, Alternaria, | | | Histoplasma, and Geotrichum. If invasive | | | Aspergillosis is suspected in high-risk patients,serial | | | sampling is recommended. | | | | | + + + + + + + + | Performing | Address | City/State/Zipcode | Phone Number | | Organization | | | | + + + + + | [facility] | [address] [facility] [address] | [place] [address] | | | SERVICES, SPECIAL | [address] | | | | IMM + [place] | | | | + + + + + IGG, SERUM (10/18/2015 10:15 AM PDT) + +---------+ + + + | Component | Value | Ref Range | Performed | Pathologist | | | | | At | Signature | + +---------+ + + + | IGG SERUM | 471 (L) | 700 - 1600 | [facility] [...] + | [facility] - | [address] | [place] [address] | | | [place] | | | | + + + + + PHOSPHORUS, PLASMA (10/18/2015 10:15 AM PDT) + +-------+ + + + | Component | Value | Ref Range | Performed | Pathologist | | | | | At | Signature | + +-------+ + + + | PHOSPHORUS, | 4.1 | 2.4 - 4.7 mg/dL | [facility] [...] + + | [facility] | [address] [facility] [address] | [place] [address] | | | SERVICES, CORE | [address] | | | + + + + + LIVER SET (AST,ALT,BILI TOTAL,BILI DIRECT,ALK PHOS,ALB,PROT TOTAL) (10/18/2015 10:15 AM PDT ) + +---------+ + [...] + + + | ALK PHOS | 63 | 53 - 128 U/L | [facility] | | | | | | LABORATORY | | | | | | SERVICES, | | | | | | CORE | | + +---------+ + + + | AST(SGOT) | 33 | <=41 U/L | [facility] | | | | | | LABORATORY | | | | | | SERVICES, | | | | | | CORE | | + +---------+ + + + | ALT (SGPT) | 108 (H) | <=60 U/L | [facility] | [...] [facility] | [address] | [place] [address] | | | SERVICES, CORE | [address] [...]
--- OUTSIDE RECORDS SUMMARY | ~2019-05-17 | XMS | Encounter Summary ---
Demographics + + + | Address | [address] | | | [place] [address] | + + + | Home Phone | | + + + | Preferred Language | Unknown | + + + | Marital Status | | + + + | Jainism Affiliation | SPI | + + + | Race | White | + + + | Ethnic Group | Not or | + + + Author + + + | Author | [facility] | + + + | Organization | [facility] | + + + | Address | Unknown | + + + | Phone | Unavailable | + + + Support + + +---------+ + | Name | Relationship | Address | Phone | + + +---------+ + | Gabriel Kelly | ECON | Unknown | | + + +---------+ + Care Team Providers + +------+ + | Care Structural Architect Name | Role | Phone | + [...] | | | | | achieved | [place], [place] | [id number] | | | | | remission | [address] | [place] | | | | | | Phone: | Asha | | | | | Procedures | [phone] | [place], [place] | | | | | Post BMT | Fax: | [address] | | | | | Auth to | [phone] | Phone: | | | | | included | | [phone] | | | | | facility, | | Fax: | | | | | diagnostics, | | [phone] | | | | | office | | | | | | | visits and | | | | | | | surgery | | | +--------+---------+ + + + + Encounter Details +--------+---------+ + + + | Date | Type | Department | Care Team | Description | +--------+---------+ + + + | 10/12/ | Office | Center for | Yari Garcia MD | Immunocompromised | | 2017 | Visit | Hematologic | [address] | state associated | | | | Malignancies at | [address] | with stem cell | | | | [address] [facility] | [place], [place] | transplant (HCC) | | | | [address] | [address] | (Primary Dx) | | | | [address] Mailcode: | [phone] | | | | | [id number] [place] | | | | | | [place], | | | | | | [place] [address] | | | | | | [phone] | | | +--------+---------+ + + + [...] + + + | Blood Pressure | 119/75 | 10/12/2016 12:14 PM | | | | | PDT | | + + + + + | Pulse | 96 | 10/12/2016 12:14 PM | | | | | PDT | | + + + + + | Temperature | 37.2 C (99 F) | 10/12/2016 12:14 PM | | | | | PDT | | + + + + + | Respiratory Rate | 16 | 10/12/2016 12:14 PM | | | | | PDT | | + + + + + | Oxygen Saturation | 100% | 10/12/2016 12:14 PM | | | | | PDT | | + + + + + | Inhaled Oxygen | - | - | | | Concentration | | | | + + + + + | Weight | 71.9 kg (158 lb 8.2 | 10/12/2016 12:14 PM | | | | oz) | PDT | | + + + + + | Height | - | - | | + + + + + | Body Mass Index | 19.81 | 09/20/2016 10:53 AM | | | | | PDT | | + + + + + documented in this encounter Patient Instructions Patient Instructions Christina Hernandez RN - 10/12/2016 11:55 AM PDTWe will set you up to see Dr Ana Garcia alternating with Aspen Cummins and you will see one of them every two weeks. Check out at the [facility] today and make your next appointments. You can also call the [facility] at [phone]. We spoke to GI and they are hoping to get you scheduled Sunday or Sunday next week You can also call them at [phone] Medications You should resume the beclamethasone--when you can 20mg alternate with 10 mg for the Prednisone Ambien for sleep Your refills were sent to the [facility] pharmacy If you have any questions, or if you need prescription refills, or are experiencing any sym ptoms or side effects please call our car coupler at [phone] documented in this encounter Progress Notes Yari Garcia MD - 10/12/2016 11:55 AM PDT 10/12/16 [facility] Primary [facility] MD: Yari Garcia MD Primary Oncologist: Yari Garcia MD Diagnosis: AMML, primary refractory Transplant Date: 08/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 He was evaluated at [facility] ED on 06/[address] angiogram negative [...] leukemia. He was referred to [facility] for further evaluation and man agement of his newly dx'd AML. Pt was admitted to [facility] on 05/26/15. Peripheral blood was sent [...] CD34, variable CD56, variable CD117, and dim [id number] mickey; promonocyte immunophenotype (70% by flow): CD11b, [...] total hip arthroplasty. He is currently day +412 s/p transplant, s/p 6 cycles of azacitidine and returns to clinic today for scheduled follow-up. Interim History: Khurram returns to clinic today having recently had significant GI sympto ms. He has been steadily slowly losing weight for several months and then more recently dev eloped persistent vomiting and diarrhea and could barely tolerate any po for several days. His niece and several other family members were similarly afflicted but recovered much more quickly. Still taking zofran - but able to eat 2 bowels of chicken soup yesterday. He still has chills, but is otherwise feeling much better after resuming steroids last week . No early complications after hip replacement - has been walking comfortably - even starting to run and was able to. States he knows he will eventually have to get the other hip repla juan a as well. Insomnia remains problematic - thinks anxiety may be contributing some as well. Does have new runny nose/cough. Review of Systems Constitutional: Positive for malaise/fatigue. Negative for chills and fever. HENT: Negative for headaches, congestion and sore throat. Respiratory: Negative for cough and shortness of breath. Cardiovascular: Negative for chest pain and leg swelling. Gastrointestinal: Positive for nausea. Negative for abdominal pain, blood in stool, diarrhe a, melena and vomiting. Genitourinary: Negative for dysuria and hematuria. Musculoskeletal: Negative for myalgias. Skin: Negative for itching and rash. Neurological: Negative for dizziness, tingling, tremors and weakness. Psychiatric/Behavioral: Negative for depression. The patient is nervous/anxious and has ins omnia. All other systems reviewed and are negative. Current Outpatient Prescriptions Medication Sig acyclovir 800 mg oral tablet Take 1 tablet by mouth two times daily. ALPRAZolam 0.5 mg oral tablet Take 2 tablets by mouth three times daily as needed. Kimberly cations: Anxiety fluconazole 200 mg oral tablet Take 2 tablets by mouth once daily for 14 days. To compl ete a total of 21 days for esophageal candidiasis Indications: fungal infection mycophenolate delayed release 360 mg oral tablet,delayed release (DR/EC) Take 2 tablets by mouth two times daily. Indications: gvhd omeprazole 20 mg oral capsule,delayed release(DR/EC) Take 1 capsule by mouth before babak akfast. predniSONE 10 mg oral tablet Take 2 tablets by mouth once daily. Indications: GvHD tacrolimus 0.5 mg oral capsule As of 11/02/16: Take 1 mg by mouth every morning and 1 m g by mouth every evening. Do not take on days of lab draws until AFTER your blood has been c ollected. Combine capsules for correct dose when necessary. Further dosing to be titrated by your clinic provider. Indications: GVHD tacrolimus 1 mg oral capsule Take 1 capsule by mouth two times daily. Do not take on da ys of lab draws until AFTER your blood has been collected. Combine capsules for correct dose when necessary. Further dosing to be titrated by your clinic provider. triamcinolone acetonide 0.1 % topical ointment Apply [...] this visit. No Known Allergies Filed Vitals: 10/12/2016 12:14 PM Weight: 71.9 kg (158 lb 8.2 oz) BP: 119/75 Pulse: 96 Temp: 37.2 C (99 F) TempSrc: Oral Resp: 16 SpO2: 100% PainSc: 0 - Zero BMI: 19.81 kg/(m^2) Physical Exam Constitutional: No distress. Thin CM in NAD HENT: Head: Normocephalic and atraumatic. Mouth/Throat: Oropharynx is clear and moist. No oropharyngeal exudate. Eyes: Conjunctivae are normal. Pupils are equal, round, and reactive to light. Right eye ex hibits no discharge. Left eye exhibits no discharge. Neck: Neck supple. Cardiovascular: Normal rate, regular rhythm, normal heart sounds and intact distal pulses. No murmur heard. Pulmonary/Chest: Effort normal and breath sounds normal. No respiratory distress. He has no wheezes. He has no rales. Abdominal: Soft. Bowel sounds are normal. He exhibits no distension. There is no tenderness . There is no rebound and no guarding. Musculoskeletal: He exhibits no edema. Lymphadenopathy: He has no cervical adenopathy. Neurological: He is alert. Skin: Skin is warm and dry. He is not diaphoretic. Psychiatric: Mood and affect normal. Vitals reviewed. Lab on 10/12/2016 Component Date Value GLUCOSE, PLASMA (LAB) 10/12/2016 114* BUN, PLASMA (LAB) 10/12/2016 12 CREATININE PLASMA (LAB) 10/12/2016 0.73 EGFR - GABONESE 10/12/2016 >60 EGFR NON -GABONESE 10/12/2016 >60 SODIUM, PLASMA (LAB) 10/12/2016 138 POTASSIUM, PLASMA (LAB) 10/12/2016 3.3* CHLORIDE, PLASMA (LAB) 10/12/2016 104 TOTAL CO2, PLASMA (LAB) 10/12/2016 24 CALCIUM, PLASMA (LAB) 10/12/2016 9.1 CALCIUM(ALB CORRECTED) 10/12/2016 9.1 BILIRUBIN TOTAL 10/12/2016 0.4 TOTAL PROTEIN, PLASMA (L* 10/12/2016 7.0 ALBUMIN, PLASMA (LAB) 10/12/2016 4.0 ALK PHOS 10/12/2016 110 AST(SGOT) 10/12/2016 29 ALT (SGPT) 10/12/2016 52 ANION GAP 10/12/2016 10 ANION GAP(ALB CORRECTED) 10/12/2016 10 POTASSIUM CMNT 10/12/2016 No Hemo BILI T CMNT 10/12/2016 No Hemo AST CMNT 10/12/2016 No Hemo MAGNESIUM,PLASMA 10/12/2016 2.1 PHOSPHORUS, PLASMA (LAB) 10/12/2016 2.3* URIC ACID, PLASMA (LAB) 10/12/2016 3.7 BILIRUBIN DIRECT 10/12/2016 0.1 BILI D CMNT 10/12/2016 No Hemo LD TOTAL, PLASMA 10/12/2016 124 LD CMNT 10/12/2016 No Hemo WHITE CELL COUNT 10/12/2016 6.50 RED CELL COUNT 10/12/2016 4.39* HEMOGLOBIN 10/12/2016 13.7 HEMATOCRIT 10/12/2016 39.9* MCV 10/12/2016 90.9 MCHC 10/12/2016 34.3 RDW SD 10/12/2016 44.8 PLATELET COUNT 10/12/2016 314 MPV 10/12/2016 8.1* NRBC% 10/12/2016 0.0 NRBC# 10/12/2016 0.00 NEUTROPHIL % 10/12/2016 60.7 LYMPHOCYTE % 10/12/2016 32.0 MONOCYTE % 10/12/2016 6.2 EOS % 10/12/2016 0.3* BASO % 10/12/2016 0.5 IMMATURE GRANULOCYTE% 10/12/2016 0.3 NEUTROPHIL # 10/12/2016 3.95 LYMPHOCYTE # 10/12/2016 2.08 MONOCYTE # 10/12/2016 0.40 EOS # 10/12/2016 0.02 BASO # 10/12/2016 0.03 IMMATURE GRANULOCYTE# 10/12/2016 0.02 Assessment/Plan: Khurram Kelly is currently day +412 s/p tBuCy-conditioned unrelated donor [facility] transplant for primary refractory AML, s/p 6 cycles of azacitidine for post-transplant rela pse. Continues without evidence of disease by peripheral smear. His most recent marrow studi es completed 08/31/16 showed a normocellular marrow (30%) with trilineage hematopoiesis, federica ow eosinophilia (~15%) and < 2% myeloid blasts. Karyotype 46,XY[20]. VNTR showed no detectab le host cells. Genetrails remained positive for IL7R (~49%, likely benign germline polymorph ism of donor origin). Hx early aGvHD [09/06/15] requiring prednisone 1 mg/kg. He initially responded but flared du ring taper. He also developed low-level nausea and abd discomfort concerning for GvHD, empir ically treated with oral non-absorbables with resolution. He had tapered prednisone to 10 mg po daily when he developed a rash for which he was seen in the ED in [place] in late 01/21 . Prednisone was increased back to 20 mg po daily. Skin bx 02/10/16 showed vaculolar interface mixed dermatitis with eosinophils. DDx included GvHD and drug hypersensitivity reaction. Ra sh resolved with increased dose prednisone. He had tolerated a taper of steroids to 5 mg po every other day then developed a faint recurrent rash. Prednisone increased to 5 mg po daily on 05/15/16 with rapid resolution of his rash. He tapered off budesonide, prednisone as of . Chronic mild nausea, increased in late 07/25, with low level transaminitis suspicious for recurrent GvHD. Beclomethasone restarted 08/09/16 with initial resolution of N/V. Presente d on 09/25/16 with recurrent N/V, increasing rash. MMF ER started at 360 mg po BID, therapeut ic tacrolimus. N/V resolved, rash persisted with new areas of scaling. MMF increased to 720 mg po BID on 10/02/16. Started back on prednisone 20 mg daily on 10/09/16 - now clinically imp roved. 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 Plan: -agree with plan for urgent EGD to confirm GVHD involvement -continue prednisone 20 mg daily alternating with 10 mg daily - pt and aware of long t erm risk of bony complications/skin changes/IST - prednisone seems to provide most relief. -ambien for insomnia -resume beclomethasone as agent to spare systemic exposure -follow up with Aspen Cummins and myself alternating q2 weeks -continue anti-microbial prophy with acyclovir, bactrim Yari Garcia MD, MS Vb Net Developerbarrel scraper [facility] [address] [place] [address] documented in this enc ounter Plan of [...] 2018 | Visit | Malignancy | [address] | | | | | [address] | | | | | | [place], [place] | | | | | | [address] | | | | | | [phone] | | | | | | | | +--------+---------+ + + + documented as of this encounter Visit Diagnoses + + | Diagnosis | + + | 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
--- OUTSIDE RECORDS SUMMARY | ~2019-05-17 | XMS | Encounter Summary ---
Demographics + + + | Address | [address] | | | [place] [address] | + + + | Home Phone [...] + + + | Author | [facility] | + + + | Organization | [facility] | + + + | Address | Unknown | + + + | Phone | Unavailable | + + + Support + + +---------+ + | Name | Relationship | Address | Phone | + + +---------+ + | Gabriel Kelly | ECON | Unknown | | + + +---------+ + Care Team Providers + +------+ + | Care Hand Mixer Name | Role | Phone | + [...] | | myelomonocyt | [address] | [place] [address] | | | | | ic leukemia, | [facility] | [facility] | | | | | not having | [address] | [address] | | | | | achieved | [place], [place] | Mailcode: | | | | | remission | [phone] | [id number] | | | | | Procedures | Phone: | [place] | | | | | [place] | [phone] | Pavilion | | | | | AZACITIDINE | Fax: | [place], [place] | | | | | INJECTION, 1 | [phone] | [address] | | | | | [place] | | Phone: | | | | | CHM,IV | | [phone] | | | | | INFSN,1 HR | | Fax: | | | | | [place] [facility],IV | | [phone] | | | | | INFSN,ADDL | | | | | | | HR [place] | | | +--------+---------+ + + + + Encounter Details +--------+ + + + + | Date | Type | Department | Care Team | Description | +--------+ + + + + | 02/24/ | Clinical | Center [facility] | | Lab Draw; | | 2015 | Support | Hematologic | | Chemotherapy | | | Staff | Malignancies at [facility] | | ([place]); | | | | [address] | | Intravenous infusion | | | | [address] Mailcode: | | ([place]) | | | | [id number] [place] | | | | | | [place], | | | | | | [place] [address] | | | | | | [phone] | | | +--------+ + + + [...] 2018 | Visit | Malignancy | [address] [facility] | | | | | | [address] | | | | | | [place], [place] | | | | | | [address] | | | | | | [phone] | | | | | | | [...] | | | | | PDT | ([facility])- primary | | | | | | induction failure | | + +--------+ + + + | TREATMENT PARAMETERS | Routin | 02/25/2016 | 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 | 7:49 AM | leukemia (AML), M4 | | | | | PDT | ([facility])- primary | | | | | | induction failure | | + +--------+ + + + | NURSING | Routin | 02/25/2016 | S/P allogeneic | | | COMMUNICATION #3 - | e | 7:49 AM | bone marrow | | | [place] | | PDT | transplant ([facility]) | | | | | | Acute [...]
--- OUTSIDE RECORDS SUMMARY | ~2019-05-17 | XMS | Encounter Summary ---
Demographics + + + | Address | [address] | | | [place] [address] | + + + | Home Phone [...] Phone | + + +---------+ + | Gabirel Kelly | ECON | Unknown | | + + +---------+ + Care Team Providers + +------+ + | Care Aesthetician Name | Role | Phone | + +------+ + | Zayda Hinton | PCP | | + +------+ + Encounter Details +--------+ + + + + | Date | Type | Department | Care Team | Description | +--------+ + + + + | 03/20/ | Pharmacy | Specialty Pharmacy | | | | 2015 | Visit | Services [address] | | | | | | [address] | | | | | | [place], [place] | | | | | | [address] | | | | | | [phone] | | | +--------+ + + + [...] 2019 | Visit | Malignancy | [address] [facility] | | | | | | [address] | | | | | | [place], [place] | | | | | | [address] | | | | | | [phone] | | | | | | | | +--------+---------+ + + + documented as of this encounter Visit Diagnoses Not on filedocumented in this encounter"
--- OUTSIDE RECORDS SUMMARY | ~2019-05-17 | XMS | Encounter Summary ---
Demographics + + + | Address | [address] | | | [place] [address] | + + + | Home Phone | | + + + | Preferred Language | Unknown | + + + | Marital Status | | + + + | Sikhism Affiliation | SPI | + + + | Race | White | + + + | Ethnic Group | Not or | + + + Author + + + | Author | [facility] | + + + | Organization | [facility] | + + + | Address | Unknown | + + + | Phone | Unavailable | + + + Support + + +---------+ + | Name | Relationship | Address | Phone | + + +---------+ + | Gabriel Kelly | ECON | Unknown | | + + +---------+ + Care Team Providers + +------+ + | Care Pelt Shearer Name | Role | Phone | + +------+ + | Zayda Hinton | PCP | | + +------+ + Encounter Details +--------+ + + + + | Date | Type | Department | Care Team | Description | +--------+ + + + + | 02/13/ | Pharmacy | Specialty Pharmacy | | | | 2015 | Visit | Services [address] | | | | | | [address] | | | | | | [place], [place] | | | | | | [address] | | | | | | [phone] | | | +--------+ + + + [...] 2019 | Visit | Malignancy | [address] [facility] | | | | | | [address] | | | | | | [place], [place] | | | | | | [address] | | | | | | [phone] | | | | | | | | +--------+---------+ + + + documented as of this encounter Visit Diagnoses Not on filedocumented in this encounter"
--- OUTSIDE RECORDS SUMMARY | ~2019-05-17 | XMS | Encounter Summary ---
Demographics + + + | Address | [address] | | | [place] [address] | + + + | Home Phone [...] Providers + +------+ + | Care Sheet Rock Nailer Name | Role | Phone | + [...] Description | +--------+--------+ + + + | 03/20/ | Refill | Center for | Aspen Cummins FNP | Refill Request | | 2016 | | Hematologic | [address] | | | | | Malignancies at | [address] | | | | | [place] | [place], [place] | | | | | [address] | [address] | | | | | [address] Mailcode: | [phone] | | | | | [facility] | | | | | | [place], | | | | | | [place] [address] | | | | | | [phone] | | | +--------+--------+ + + + [...] [address] | | | | | | [place] | | | | | | [address] | | | | | | [phone] | | | | | | | | +--------+---------+ + + + documented as of this encounter Visit Diagnoses Not on filedocumented in this encounter"
--- OUTSIDE RECORDS SUMMARY | ~2019-05-17 | XMS | Encounter Summary ---
Demographics + + + | Address | [address] | | | [place] [address] | + + + | Home Phone [...] + + + | Author | [facility] | + + + | Organization | [facility] | + + + | Address | Unknown | + + + | Phone | Unavailable | + + + Support + + +---------+ + | Name | Relationship | Address | Phone | + + +---------+ + | Gabriel Kelly | ECON | Unknown | | + + +---------+ + Care Team Providers + +------+ + | Care Lead Man Over All Dies In Pattern Shop Name | Role | Phone | + +------+ + | Zayda Hinton | PCP | | + +------+ + Encounter Details +--------+ + + + + | Date | Type | Department | Care Team | Description | +--------+ + + + + | 07/28/ | Pharmacy | Specialty Pharmacy | | | | 2016 | Visit | Services [address] | | | | | | [address] | | | | | | [place], [place] | | | | | | [address] | | | | | | [phone] | | | +--------+ + + + [...] 2019 | Visit | Malignancy | [address] [facility] | | | | | | [address] | | | | | | [place], [place] | | | | | | [address] | | | | | | [phone] | | | | | | | | +--------+---------+ + + + documented as of this encounter Visit Diagnoses Not on filedocumented in this encounter"
--- OUTSIDE RECORDS SUMMARY | ~2019-05-17 | XMS | Encounter Summary ---
Demographics + + + | Address | [address] | | | [place] [address] | + + + | Home Phone | | + + + | Preferred Language | Unknown | + + + | Marital Status | | + + + | Islam Affiliation | SPI | + + + [...] Team Providers + +------+ + | Care Nut Sorter Name | Role | Phone | + +------+ + | Zayda Hinton | PCP | | + +------+ + Encounter Details +--------+ + + + + | Date | Type | Department | Care Team | Description | +--------+ + + + + | 06/28/ | Pharmacy | Specialty Pharmacy | | | | 2015 | Visit | Services [address] | | | | | | [address] | | | | | | [place], [place] | | | | | | [address] | | | | | | [phone] | | | +--------+ + + + [...] 2019 | Visit | Malignancy | [address] [facility] | | | | | | [address] | | | | | | [place], [place] | | | | | | [address] | | | | | | [phone] | | | | | | | | +--------+---------+ + + + documented as of this encounter Visit Diagnoses Not on filedocumented in this encounter"
--- OUTSIDE RECORDS SUMMARY | ~2019-05-17 | XMS | Encounter Summary ---
Demographics + + + | Address | [address] | | | [place] [address] | + + + | Home Phone | | + + + | Preferred Language | Unknown | + + + | Marital Status | | + + + | Rastafari Affiliation | SPI | + + + | Race | White | + + + | Ethnic Group | Not or | + + + Author + + + | Author | [facility] | + + + | Organization | [facility] | + + + | Address | Unknown | + + + | Phone | Unavailable | + + + Support + + +---------+ + | Name | Relationship | Address | Phone | + + +---------+ + | Gabriel Kelly | ECON | Unknown | | + + +---------+ + Care Team Providers + +------+ + | Care Nitrocellulose Operator Name | Role | Phone | + +------+ + | Pending Pcp Addition | PCP | Unavailable | + +------+ + Reason for Referral Diagnostic Testing (Routine) +--------+--------+ + + + + | Status | Reason | Specialty | Diagnoses / | Referred By | Referred To | | | | | Procedures | Contact | Contact | +--------+--------+ + + + + | Closed | | Bone | Diagnoses | Cummins, | End Bne | | | | Densitometry | S/P | [facility] | | | | | allogeneic | [address] | [address] | | | | | bone marrow | Jabier Carrera | [address] | | | | | transplant | Rd | Mailcode: | | | | | ([facility]) | [place], [place] | [facility] | | | | | Procedures | [phone] | for Health | | | | | BONE DENSITY | Phone: | and Healing, | | | | | PROCEDURE | [phone] | Building [address] | | | | | | Fax: | [place], [place] | | | | | | [phone] | [address] | | | | | | | Phone: | | | | | | | [phone] | | | | | | | Fax: | | | | | | | [phone] | +--------+--------+ + + + + Reason for Visit + + + | Reason | Comments | + + + | Transplant follow-up | | + + + Encounter Details +--------+---------+ + + + | Date | Type | Department | Care Team | Description | +--------+---------+ + + + | 08/16/ | Office | Center for | Aspen Cummins FNP | S/P allogeneic bone | | 2017 | Visit | Hematologic | [address] | marrow transplant | | | | Malignancies at | [facility] | (HCC) (Primary Dx); | | | | [facility] | [place], [place] | Acute myelomonocytic | | | | [address] | [address] | leukemia in | | | | [address] Mailcode: | [phone] | remission (HCC) | | | | [id number] | | | | | | [facility] [place], | | | | | | [place] [address] | | | | | | [phone] | | | +--------+---------+ + + + [...] + + + | Blood Pressure | 126/76 | 08/16/2016 9:03 AM | | | | | PST | | + + + + + | Pulse | 88 | 08/16/2016 9:03 AM | | | | | PST | | + + + + + | Temperature | 36.8 C (98.3 F) | 08/16/2016 9:03 AM | | | | | PST | | + + + + + | Respiratory Rate | 16 | 08/16/2016 9:03 AM | | | | | PST | | + + + + + | Oxygen Saturation | 100% | 08/16/2016 9:03 AM | | | | | PST | | + + + + + | Inhaled Oxygen | - | - | | | Concentration | | | | + + + + + | Weight | 84.4 kg (186 lb 1.1 | 08/16/2016 9:03 AM | | | | oz) | PST | | + + + + + | Height | - | - | | + + + + + | Body Mass Index | 23.26 | 08/11/2016 9:07 AM | | | | | PST | | + + + + + documented in this encounter Progress Notes Aspen Cummins FNP - 08/16/2016 9:45 AM PST 08/16/2016 [facility] MD: Yari Garcia MD Primary Oncologist: Yari Garcia MD Diagnosis: AMML, primary refractory Transplant Date: 08/27/15 Donor: MM URD (DPB1 permissive antigen mismatch, male, [id number]) Identifying Data: Khruram Gambleliat is a 26 y.o. CM with a [...] his L ankle. He was evaluated at [place]'s ED on 06/[address] angiogram negative [...] myelomonocytic leukemia. He was referred to [facility] for further evaluation and man agement of his newly dx'd AML. Pt was admitted to [facility] on 05/26/15. Peripheral blood was sent [...] CD34, variable CD56, variable CD117, and dim MW256-lpbrf mickey; promonocyte immunophenotype (70% by flow): CD11b, [...] durin g taper. He is currently day +355 s/p transplant, s/p 6 cycles of azacitidine and returns to clinic today for scheduled follow-up. Interim History: Khurram was most recently evaluated in [facility] by me on 08/09/16. He presented at that time with c/o increased N/V. He was start ed on oral beclomethasone QID in an effort to avoid additional systemic steroids. N/V persi sted x 3 additional days, then completely resolved. He has been eating well over the last 3 days, no further c/o N/V. Energy is better. Denies c/o oral or ocular sensitivity. He was seen by Lobo Jeffers MD on 08/11/16 due to hip pain secondary to AVN, recommended a t otal L hip arthroplasty. Pt has decided to go forward with the surgery, is hoping to have i t scheduled within the next month. Continues with c/o pain to L hip, relatively well contro lled with his current medication regimen. Review of Systems Constitutional: Positive for malaise/fatigue. Negative for chills and fever. HENT: Negative for headaches, congestion and sore throat. Respiratory: Negative for cough and shortness of breath. Cardiovascular: Negative for chest pain and leg swelling. Gastrointestinal: Negative for abdominal pain, diarrhea, nausea and vomiting. Genitourinary: Negative for dysuria. Musculoskeletal: Positive for joint pain (L hip). Negative for myalgias. Skin: Negative for rash. Neurological: Positive for weakness. Negative for dizziness, tingling and tremors. All other systems reviewed and are negative. Current Outpatient Prescriptions Medication Sig acyclovir 800 mg oral tablet Take 1 tablet by mouth two times daily. ALPRAZolam 0.5 mg oral tablet Take 1 tablet by mouth three times daily as needed. Indic ations: Anxiety amLODIPine 5 mg oral tablet Take one-half tablet by mouth once daily. beclomethasone 1 mg/mL oral suspension (compound) Take 1 mL by mouth four times daily. Shake well and refrigerate. Please give 24 hours notice to compound medication. Discard afte r 14 days. omeprazole 20 mg oral capsule,delayed release(DR/EC) Take 1 capsule by mouth before babak akfast. ondansetron 8 mg oral tablet Take 1 tablet by mouth every twelve hours as needed. oxyCODONE CR 20 mg oral tablet,oral only,ext.rel.12 hr Take 1 tablet by mouth every twe lve hours. Indications: Chronic Pain oxyCODONE, immediate release, 5 mg oral tablet Take 1 to 2 tablets by mouth every six h ours as needed for moderate pain or severe pain. tacrolimus 0.5 mg oral capsule Take 0.5 mg (one capsule) by mouth twice daily trimethoprim-sulfamethoxazole 160-800 mg oral tablet Take 1 tablet by mouth twice daily (every Sunday and ). No current facility-administered medications for this visit. Allergies Allergen Reactions Chlorhexidine Towelette Rash PAVAN cloths - ok to use Chloraprep for dresssing change per pt. Filed Vitals: 08/16/2016 9:03 AM Weight: 84.4 kg (186 lb 1.1 oz) BP: 126/76 Pulse: 88 Temp: 36.8 C (98.3 F) TempSrc: Oral Resp: 16 SpO2: 100% PainSc: 05 - Moderate to Severe PainLoc: Hip (Left) BMI: 23.26 kg/(m^2) Physical Exam Constitutional: He is well-developed, well-nourished, and in no distress. HENT: Head: Normocephalic and atraumatic. Mouth/Throat: Oropharynx is clear and moist. No oropharyngeal exudate. Eyes: Pupils are equal, round, and reactive to [...] reviewed. Lab Results Component Value Date WBC 7.5 08/16/2016 HB 15.5 08/16/2016 HCT 43.8 08/16/2016 PLT 273 08/16/2016 MCV 90.7 08/16/2016 RDW 44.9 05/01/2016 Lab Results Component Value Date BICARB 23 08/16/2016 TBILI 0.5 08/16/2016 CA 10.0 08/16/2016 CL 100 08/16/2016 CR 0.9 08/16/2016 GLU 116 (H) 08/16/2016 AP 156 (H) 08/16/2016 TP 7.5 08/16/2016 BUN 11 08/16/2016 ALB 4.1 08/16/2016 AST 118 (H) 08/16/2016 NA 134 08/16/2016 K 4.0 08/16/2016 ALT 161 (H) 08/16/2016 Assessment/Plan: 1. Hematology: Khurram Kelly is currently day +355 s/p tBuCy-conditioned unrel ated donor [facility]SC transplant for primary refractory AML, s/p 6 cycles of azacitidine for post- transplant relapse. He continues with trilineage engraftment and no evidence of disease by p eripheral smear. His most recent marrow studies completed 04/19/16 showed a patchy hypocellu lar (less than 5% to 50%) bone marrow with trilineage hematopoiesis and < 3% myeloid blasts. Karyotype 46,XY[20]. VNTR showed no detectable host cells. 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 --> continue CBC q2 weeks --> repeat marrow studies in two weeks in conjunction with his one year anniversary 2. 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 He initial ly responded but flared during taper. He also developed low-level nausea and abd discomfort concerning for GvHD, empirically treated with oral non-absorbables with resolution. He had t apered prednisone to 10 mg po daily when he developed a rash for which he was seen in the ED in [place] in late 01/21. Prednisone was increased back [...] for recurrent GvHD. Beclomethasone restarted 08/09/16 with resolution of N/V. Stable transaminitis noted. --> continue tacrolimus 0.5 mg bid --> continue beclomethasone 1 mg po QID --> if nausea recurs, refer for EGD to r/o GvHD --> due to AVN, would prefer not to restart steroids unless pt has bx proven GvHD 3. Fluid, Electrolyte and Nutrition: Appetite improved over the last 3 days. Eating better without further c/o N/V. Adequate po fluid intake noted. Weight down 13# over the last wee k, down 27# over the last month. TP/alb remain WNL. His electrolytes are reviewed and are wi thin acceptable limits. --> encouraged pt to continue to eat well with several meals/snacks throughout the day --> maintain hydration with goal of 2L calorie containing fluids daily 4. Musculoskeletal: Hx of intermittent L hip pain. Plain films on 03/30/16 showed minimal de generative changes of both hips. Pain had resolved, however returned within the last few wee ks, much more intense. Repeat xrays 07/13/16 showed probable developing AVN of the femoral hea d and early femoral head collapse. MRI 07/25/16 showed bilateral femoral head osteonecrosis w ith subchondral fracture and collapse of weightbearing L femoral head with suspected early c artilage disease. Consult with Lobo Jeffers MD on 08/11/16, recommended a total L hip arthrop lasty. --> encouraged pt to contact Dr. Jeffers's office to inform them of his decision to proceed with arthroplasty --> continue current analgesics as prescribed 5. Follow up --> RTC to f/u with me, marrow studies, PFTs, DEXA scan and fasting labs in 2 weeks, sooner prn --> additionally, schedule f/u with Yari Garcia MD in 4 weeks [facility] [address] Mailcode: [address] [place] [address] documented in this e ncounter Plan of [...] | 2018 | Visit | Malignancy | [address] [place] [address] | | | | | | [facility] | | | | | | [place], [place] | | | | | | [address] | | | | | | [phone] | | | | | | | | +--------+---------+ + + + documented as of this encounter Results SPIROMETRY, PULM FUNCTION LAB (09/01/2016 11:24 AM PST) + + + + + + | Component | Value | Ref Range | Performed | Pathologist | | | | | At | Signature | + + + + + + | PULMONARY | Name: RAZA, | | [facility] | | | INTERPRETAT | KHURRAM FRANZ ID: | | SPECIAL | | | ION | [id number]: | | DIAGNOSTICS | | | | Height: 74.41 Inches | | - | | | | Age: 26Tech: Grady, | | PULMONARY | | | | Hao Weight: 186.51 | | FUNCTION | | | | Lbs Sex: | | | | | | MaleVisitDate: | | | | | | 09/01/2016 VisitTime: | | | | | | 11:24:15 AM Race: | | | | | | CaucasianSecondary ID:PT | | | | | | ID: DoctorID:Change | | | | | | Status:Diagnosis: | | | | | | Allogeneic Bone Marrow | | | | | | Transplant | | | | | | Z94.81Dyspnea: No | | | | | | DyspneaCough: No | | | | | | CoughWheeze: No | | | | | | WheezeYrs Quit: | | | | | | 1.0 | | | | | | Pks/Day: | | | | | | 0.8Yrs Smk: | | | | | | 7.0 | | | | | | Tbco Prod: | | | | | | CigarettePost-Test | | | | | | Comments:Good patient | | | | | | effort & cooperation. | | | | | | The results of this | | | | | | test meet the | | | | | | ATSstandards for | | | | | | acceptability and | | | | | | repeatability. Height | | | | | | and weight reviewedwith | | | | | | patient. | | | | | | | | | | | | PRE-BRONCH | | | | | | POST-BRONCH | | | | | | | | | | | | Sara | | | | | | Prd %Prd Sara | | | | | | %prd | | | | | | %Chg@SPIROMETRY$FVC | | | | | | (L) | | | | | | 6.71 6.30 | | | | | | [id number] (L) | | | | | | | | | | | | 5.28 5.13 | | | | | | [id number]/FVC (%) | | | | | | 79 | | | | | | 83 95FEF 25% | | | | | | (L/sec) | | | | | | 9.63 8.68 | | | | | | 111FEF 50% (L/sec) | | | | | | 5.11 | | | | | | 5.48 93FEF 75% | | | | | | (L/sec) | | | | | | 2.23 2.28 | | | | | | 98FEF 25-75% (L/sec) | | | | | | 4.64 | | | | | | 5.09 91FEF Max | | | | | | (L/sec) | | | | | | 11.12 11.24 | | | | | | 99FIVC (L) | | | | | | 6.39FIF | | | | | | 50% (L/sec) | | | | | | 8.86 9.31 | | | | | | 95FIF Max (L/sec) | | | | | | 8.98MVV | | | | | | (L/min) | | | | | | | | | | | | 198MEP (cmH2O) | | | | | | | | | | | | 231MIP (cmH2O) | | | | | | | | | | | | -126@LUNG | | | | | | VOLUMES$SVC (L) | | | | | | | | | | | | 6.90 6.00 | | | | | | 115IC (L) | | | | | | 4.27 | | | | | | 3.91 109ERV (L) | | | | | | | | | | | | 2.58 2.09 | | | | | | 124FRC (N2) (L) | | | | | | | | | | | | 3.87RV (N2) (L) | | | | | | | | | | | | 1.78TLC (N2) (L) | | | | | | | | | | | | 7.78RV/TLC | | | | | | (N2) (%) | | | | | | | | | | | | 22Washout Time | | | | | | (min)FRC (pl) (L) | | | | | | 4.44 | | | | | | 3.87 115RV | | | | | | (Pleth) (L) | | | | | | 1.80 1.78 | | | | | | 101TLC (Pleth) (L) | | | | | | 8.71 | | | | | | 7.78 112RV/TLC | | | | | | (Pleth) (%) | | | | | | 21 22 | | | | | | 94Trapped Gas | | | | | | (L)@DIFFUSION$DLCOunc | | | | | | (ml/min/mmHg) | | | | | | 40.35 35.79 | | | | | | 113DLCOadj (ml/min/mmHg) | | | | | | 40.94 35.79 | | | | | | 114DL/VA | | | | | | (ml/min/mmHg/L) | | | | | | 4.87 4.60 | | | | | | 106VA (L) | | | | | | 8.41 | | | | | | 7.78 | | | | | | 108@AIRWAYS$Raw | | | | | | (cmH2O/L/s) | | | | | | 1.45Gaw | | | | | | (L/s/cmH2O) | | | | | | | | | | | | 1.03sRaw (cmH2O*s) | | | | | | | | | | | | 4.76sGaw (1/cmH2O*s) | | | | | | | | | | | | 0.20@SINGLE | | | | | | BREATH$Closing Volume | | | | | | (L)Closing Capacity | | | | | | (L)Delta Phase IIICV/VC | | | | | | (%)CC/TLC (%)Delta N2 | | | | | | 750-1250 (%)@BLOOD | | | | | | GASES$pHPaCO2 (mmHg)PaO2 | | | | | | (mmHg) | | | | | | | | | | | | 97.8Base ExcessHgb | | | | | | (gm/dL) | | | | | | 14.1 | | | | | | Interpretation:SPIROMETR | | | | | | Y:Spirometry is within | | | | | | normal limits for age, | | | | | | height and sex.Since | | | | | | 08/09/15, the FEV1 has | | | | | | increased by 0.15 L. The | | | | | | FVC has decreased | | | | | | by0.27 L. Between test | | | | | | variation can be up to | | | | | | 10%. These changes | | | | | | thereforeare not | | | | | | significant. LUNG | | | | | | VOLUMES:Lung volumes are | | | | | | within normal limits. | | | | | | DIFFUSING CAPACITY:The | | | | | | diffusing capacity is | | | | | | within normal limits. | | | | | | COMMENT:Normal pulmonary | | | | | | function | | | | | | tests. Thisinterpreta | | | | | | tion has been | | | | | | electronically signed: | | | | | | Jerad Aguilera | | | | | | 09/06/201611:12:11 | | | | | | AM | | | | + + + + + + | FVC PRE | 6.71 | 6.30 L | [facility] | | | | | | SPECIAL | | | | | | DIAGNOSTICS | | | | | | - | | | | | | PULMONARY | | | | | | FUNCTION | | + + + + + + | FVC PRE | 106 | % | [facility] | | | (%REF) | | | SPECIAL | | | | | | DIAGNOSTICS | | | | | | - | | | | | | PULMONARY | | | | | | FUNCTION | | + + + + + + | FEV1 PRE | 5.28 | 5.13 L | [facility] | | | | | | SPECIAL | | | | | | DIAGNOSTICS | | | | | | - | | | | | | PULMONARY | | | | | | FUNCTION | | + + + + + + | FEV1 PRE | 102 | % | [facility] | | | (%REF) | | | SPECIAL | | | | | | DIAGNOSTICS | | | | | | - | | | | | | PULMONARY | | | | | | FUNCTION | | + + + + + + | FEV1/FVC | 79 | 83 % | [facility] | | | PRE | | | SPECIAL | | | | | | DIAGNOSTICS | | | | | | - | | | | | | PULMONARY | | | | | | FUNCTION | | + + + + + + | FEV1/FVC | 94 | % | [facility] | | | PRE (%REF) | | | SPECIAL | | | | | | DIAGNOSTICS | | | | | | - | | | | | | PULMONARY | | | | | | FUNCTION | | + + + + + + | PEF PRE | 11.12 | 11.24 L/sec | [facility] | | | | | | SPECIAL | | | | | | DIAGNOSTICS | | | | | | - | | | | | | PULMONARY | | | | | | FUNCTION | | + + + + + + | PEF PRE | 98 | % | [facility] | | | (%REF) | | | SPECIAL | | | | | | DIAGNOSTICS | | | | | | - | | | | | | PULMONARY | | | | | | FUNCTION | | + + + + + + | [id number]% | 4.64 | 5.09 L/sec | [facility] | | | PRE | | | SPECIAL | | | | | | DIAGNOSTICS | | | | | | - | | | | | | PULMONARY | | | | | | FUNCTION | | + + + + + + | MDV38-56% | 91 | % | [facility] | | | PRE (%REF) | | | SPECIAL | | | | | | DIAGNOSTICS | | | | | | - | | | | | | PULMONARY | | | | | | FUNCTION | | + + + + + + | FIF50% PRE | 8.86 | 9.31 L/sec | [facility] | | | | | | SPECIAL | | | | | | DIAGNOSTICS | | | | | | - | | | | | | PULMONARY | | | | | | FUNCTION | | + + + + + + | FIF50% PRE | 95 | % | [facility] | | | (%REF) | | | SPECIAL | | | | | | DIAGNOSTICS | | | | | | - | | | | | | PULMONARY | | | | | | FUNCTION | | + + + + + + | VC PRE | 6.90 | 6.00 L | [facility] | | | | | | SPECIAL | | | | | | DIAGNOSTICS | | | | | | - | | | | | | PULMONARY | | | | | | FUNCTION | | + + + + + + | VC PRE | 115 | % | [facility] | | | (%REF) | | | SPECIAL | | | | | | DIAGNOSTICS | | | | | | - | | | | | | PULMONARY | | | | | | FUNCTION | | + + + + + + | IC PRE | 4.27 | 3.91 L | [facility] | | | | | | SPECIAL | | | | | | DIAGNOSTICS | | | | | | - | | | | | | PULMONARY | | | | | | FUNCTION | | + + + + + + | IC PRE | 109 | % | [facility] | | | (%REF) | | | SPECIAL | | | | | | DIAGNOSTICS | | | | | | - | | | | | | PULMONARY | | | | | | FUNCTION | | + + + + + + | ERV PRE | 2.58 | 2.09 L | [facility] | | | | | | SPECIAL | | | | | | DIAGNOSTICS | | | | | | - | | | | | | PULMONARY | | | | | | FUNCTION | | + + + + + + | ERV PRE | 123 | % | [facility] | | | (%REF) | | | SPECIAL | | | | | | DIAGNOSTICS | | | | | | - | | | | | | PULMONARY | | | | | | FUNCTION | | + + + + + + | FRC PL PRE | 4.44 | 3.87 L | [facility] | | | | | | SPECIAL | | | | | | DIAGNOSTICS | | | | | | - | | | | | | PULMONARY | | | | | | FUNCTION | | + + + + + + | FRC PL PRE | 114 | % | [facility] | | | (%REF) | | | SPECIAL | | | | | | DIAGNOSTICS | | | | | | - | | | | | | PULMONARY | | | | | | FUNCTION | | + + + + + + | RV PRE | 1.80 | 1.78 L | [facility] | | | | | | SPECIAL | | | | | | DIAGNOSTICS | | | | | | - | | | | | | PULMONARY | | | | | | FUNCTION | | + + + + + + | RV PRE | 101 | % | [facility] | | | (%REF) | | | SPECIAL | | | | | | DIAGNOSTICS | | | | | | - | | | | | | PULMONARY | | | | | | FUNCTION | | + + + + + + | TLC PRE | 8.71 | 7.78 L | [facility] | | | | | | SPECIAL | | | | | | DIAGNOSTICS | | | | | | - | | | | | | PULMONARY | | | | | | FUNCTION | | + + + + + + | TLC PRE | 111 | % | [facility] | | | (%REF) | | | SPECIAL | | | | | | DIAGNOSTICS | | | | | | - | | | | | | PULMONARY | | | | | | FUNCTION | | + + + + + + | RV/TLC PRE | 21 | 22 % | [facility] | | | | | | SPECIAL | | | | | | DIAGNOSTICS | | | | | | - | | | | | | PULMONARY | | | | | | FUNCTION | | + + + + + + | DLCO PRE | 40.35 | 35.79 | [facility] | | | | | ml/min/mmHg | SPECIAL | | | | | | DIAGNOSTICS | | | | | | - | | | | | | PULMONARY | | | | | | FUNCTION | | + + + + + + | DLCO PRE | 112 | % | [facility] | | | (%REF) | | | SPECIAL | | | | | | DIAGNOSTICS | | | | | | - | | | | | | PULMONARY | | | | | | FUNCTION | | + + + + + + | DLCO ADJ | 40.94 | 35.79 | [facility] | | | PRE | | ml/min/mmHg | SPECIAL | | | | | | DIAGNOSTICS | | | | | | - | | | | | | PULMONARY | | | | | | FUNCTION | | + + + + + + | DLCO ADJ | 114 | % | [facility] | | | PRE (%REF) | | | SPECIAL | | | | | | DIAGNOSTICS | | | | | | - | | | | | | PULMONARY | | | | | | FUNCTION | | + + + + + + | DLCO/VA ADJ | 4.87 | ml/min/mmHg/L | [facility] | | | PRE | | | SPECIAL | | | | | | DIAGNOSTICS | | | | | | - | | | | | | PULMONARY | | | | | | FUNCTION | | + + + + + + | DLCO/VA ADJ | 105 | % | [facility] | | | [...] + | [facility] | [address] | [place], [place] | | | DIAGNOSTICS - | [address] | [address] | | | PULMONARY FUNCTION | | [...] + | [facility] - | [address] | [place] [address] | | | [place] | | | [...] + | [facility] - | [address] | [place] [address] | | | [place] | | | [...] + | [facility] - | [address] | [place] [address] | | | [place] | | | | + + + [...] | | | | | | [facility] - Pathology | | | | + + + + + + + + | Specimen | + + | Blood - Blood | | (substance) | + + + + + + + | Performing | Address | City/State/Zipcode | Phone Number | | Organization | | | | + + + + + | [facility] - | [address] | [place] [address] | | | [place] | | | | + + + [...] + + + + + | [facility] | [address] | [place] [address] | | | SERVICES, CORE | PARK [...] | + + + + + | [facility] | [address] | [place] [address] | | | SERVICES, CORE | WALLY [...] + + + + + | [facility] | [address] [facility] | [place] [address] | | | KOLE, INDRA | WALLY [...] | | | this test in the [facility] | | | | | | Laboratory Test | | | | | | Directory | | | | | | (LogoGrab).Performed | | | | | | by [email or web address] | | | | | | [address], [facility],[place] | | | | | | [phone] | | | | | | [phone].[email or web address]. | | | | | | [facility], Abhishek Drew MD, | | | [...] | + + + + + | [facility] | [address] | [place], [place] | | | [facility] | | [address] | | + + + + + [...] + + + + + | [facility] | [address] | [place] [address] | | | SERVICES, CORE | WALLY [...] [facility] | [address] | [place] [address] | | | SERVICES, INDRA | [address] | | | + + + + + CMP, POC (BMP+LFT) (08/21/2016 3:44 PM PST) + +---------+ + + + | Component | Value | Ref Range | Performed | Pathologist | | | | | At | Signature | + +---------+ + + + | SODIUM, POC | 134 | 134 - 143 | [facility] - | | | | | mmol/L | [facility] | | | | | | [facility] | | | | | | OF CARE | | | | | | TESTS | | + +---------+ + + + | POTASSIUM, | 4.0 | 3.4 - 5.0 | [facility] - [...] +---------+ + + + | CHLORIDE, | 99 | 97 - 108 mmol/L | [facility] - | | | POC | | | [place] | | | | | | [facility] | | | | | | OF CARE | | | | | | TESTS | | + +---------+ + + + | GLUCOSE, | 110 (H) | 60 - 99 mg/dL | [...] + + + | ALK PHOS, | 114 (H) | 41 - 99 U/L | [facility] - | | | CMP POC | | | [place] | | | | | | [place], POINT | | | | | | OF CARE | | | | | | TESTS | | + +---------+ + + + | ALT, CMP | 95 (H) | 0 - 60 U/L | [facility] - | | | POC | | | [facility] | | | | | | [facility], [facility] | | | | | | OF CARE | | | | | | TESTS | | + +---------+ + + + | AST, CMP | 62 (H) | 0 - 41 U/L | [...] +---------+ + + + | PROTEIN | 6.5 | 6.1 - 7.9 g/dL | [facility] [...] [facility] | [address] | [place], [place] | | | [facility] | [address] | [id number] | | | TESTS | | | [...]
--- OUTSIDE RECORDS SUMMARY | ~2019-05-17 | XMS | Encounter Summary ---
Demographics + + + | Address | [address] | | | [place] [address] | + + + | Home Phone [...] Team Providers + +------+ + | Care Religion Instructor Name | Role | Phone | + [...] | | | | | | | [address] | | | | | | | [address] | | | | | | | [place], | | | | | | | [place] | | | | | | | [address] | | | | | | | Phone: | | | | | | | [phone] | | | | | | | Fax: | | | | | | | [phone] | +--------+--------+ + + + + Encounter Details +--------+---------+ + + + | Date | Type | Department | Care Team | Description | +--------+---------+ + + + | 08/02/ | Office | Center for | Yari Garcia MD | 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), M4 | | | | Malignancies at | [address] | (HCC) (Primary Dx) | | | | [facility] | [place], [place] | | | | | [address] | [address] | | | | | Debi Burger Mailcode: | [phone] | | | | | [id number] | | | | | | [place], | | | | | | [place] [address] | | | | | | [phone] | | | +--------+---------+ + + + [...] + + + | Blood Pressure | 122/66 | 08/02/2015 11:07 AM | | | | | PST | | + + + + + | Pulse | 60 | 08/02/2015 11:07 AM | | | | | PST | | + + + + + | Temperature | 36.8 C (98.2 F) | 08/02/2015 11:07 AM | | | | | PST | | + + + + + | Respiratory Rate | 16 | 08/02/2015 11:07 AM | | | | | PST | | + + + + + | Oxygen Saturation | 99% | 08/02/2015 11:07 AM | | | | | PST | | + + + + + | Inhaled Oxygen | - | - | | | Concentration | | | | + + + + + | Weight | 81.8 kg (180 lb 5.4 | 08/02/2015 11:07 AM | | | | oz) | PST | | + + + + + | Height | - | - | | + + + + + | Body Mass Index | 22.84 | 07/15/2015 1:57 PM | | | | | PST | | + + + + + documented in this encounter Patient Instructions Patient Instructions Christina Hernandez RN - 08/02/2015 12:47 PM PSTJeremiah We will plan for you to 1) See Dr. Garcia again at the end of this week review donor options and hopefully plan the t ransplant 2) get 3 times a week lab and infusion/transfusion as needed for the next 3 weeks 3) start cycle 2 off Decitabine on SundayAug 16, x 10 days. Check out at the vest front presser today and make your next appointments. You can also call the schedulers at [phone]. If you have any questions, or if you need prescription refills, or are experiencing any sym ptoms or side effects please call our topographical engineer at [phone] documented in this encounter Progress Notes Yari Garcia MD - 08/17/2015 11:15 AM [facility] Attending Addendum I saw and examined the patient in a visit separate from the fellow's and discussed the case with Dr. Mendoza. I agree with the fellow's findings and plan as written. Khurram ha is a 25 year old man with recently diagnosed AML who has completed 2 cycles of inductio n and has primary refractory disease. He returns to clinic and has tolerated decitabine wel l without early complication. They have had a very difficult time getting a dental appointm ent because of insurance issues and pancytopenia. Mood remains depressed - though improved from previous. Energy remains low. No fevers/chills. Pleased to be spending time with fam varun. Exam significant for fatigued, but non-toxic young man. Oral cavity without visible lesion s. Heart regular, without murmurs. Lungs clear. Petechial rash over ankles. Plan as noted in Dr. Mendoza's note including: -plan for unrelated donor PBSCT, final typing on first potential donor completed and is an A antigen MM with permissive DP MM. Additional URD samples arriving in next several days. Will type parents as back up as well as could be candidate for haplo transplant on [facility]. -would plan for tBu/CY conditioning as pt likely to have persistent disease at transplant. -transplant will be high-risk, but only curative option currently available. globe tester kary vival at best 30%. -if high level disease burden on pre-transplant (similar to previous marrows) will refer to Dr. Pretty for consideration of bi-specific antibody study. Yari Garcia MD, MS Lead Level Designerornamental painter [facility] [address] [place] [address] Deedee Caputo MD - 08/03/2015 7:33 PM PST [facility] Primary CHM MD: Yari Garcia MD Primary Oncologist: Yari Garcia MD Diagnosis: AMML Identifying Data: Khurram Kelly is a 24 y.o. CM [...] his L ankle. He was evaluated at [facility] ED on 06/[address] angiogram [...] acute myelomonocytic leukemia. He was referred to [facility] for further evaluation and man agement of his newly dx'd AML. Pt was admitted to [facility] on 05/26/15. Peripheral blood was [...] CD34, variable CD56, variable CD117, and dim [id number] mickey; promonocyte immunophenotype (70% by flow): CD11b, CD13, CD14, variable CD16, CD33, vari able CD56, CD64, and HLA-DR- positive. Cytogenetic and FISH studies remained normal, Genetra ils pending. Pt's hospital course was complicated by parotiditis, [...] followed up closely with Yari Garcia MD. Pt is currently day 10 of c1 of decitabine and returns to clinic today for scheduled follow -up. Interim History: Khurram comes in today for a scheduled follow up; he is currently day +15 of C1 of decitab ine therapy. Today Khurram says he is tired, but otherwise well. He states that he tolera edward his first cycle of decitabine well with no adverse reactions that he is aware of. In sp ecific, denies N/V/D, no rash, no edema. He is fatigued but this has not gotten worse since starting decitabine; states his energy has been low since starting therapy for his leukemia . His appetite is up and down; his is a little worried but the patient says he thinks he is eating enough; his weight has been stable and he is not interested in an appetite stim ulant at this time. Denies fevers / rigors. No bleeding episodes but he does have petechia e present on his ankles bilaterally. He has no concerns at this time. Review of Systems: Gen:(-)fevers, (-)chills, (-)fatigue HEENT:(-)sore throat, (-)sinus tenderness, (-)dysphagia Neuro:(-)HAs, (-)vision changes, (-)hearing changes,(-)weakness CV:(-)chest pain, (-)palpitations, (-)lightheadedness Resp:(-)dyspnea, (-)cough, (-)wheezing GI:(-)nausea, (-)vomiting, (-)abd tenderness, (-)reflux, (-)diarrhea, (-)bloody stools (+) low appetite :(-)dysuria, (-)hematuria, (-)urinary incont, frequency, hesitancy, urgency Psych:(-)anxiety Skin:(-) rash Endo:(-) cold intolerance EXT: (-) LLE edema Current Inpatient Medications Medication acyclovir 800 mg oral tablet ALPRAZolam 0.5 mg oral tablet chlorhexidine 0.12 % mucous membrane mouthwash levofloxacin 500 mg oral tablet LORazepam 1 mg oral tablet ondansetron 4 mg oral tablet oxyCODONE, immediate release, 5 mg oral tablet posaconazole DR 100 mg oral tablet,delayed release (DR/EC) prochlorperazine 5 mg oral tablet sertraline (ZOLOFT) 25 mg oral tablet No current facility-administered medications for this visit. Allergies Allergen Reactions Chlorhexidine Towelette Rash PAVAN cloths Physical Exam: Last Vitals: BP 122/66 | Pulse 60 | Temp (Src) 36.8 C (98.2 F) (Oral) | RR 16 | Wt 81.8 kg (180 lb 5.4 oz) | SpO2 99% | BMI 22.85 kg/(m^2) Gen: sitting up at edge of exam table, pale but otherwise well appearing HEENT: no oral lesions, no petechiae Lungs: CTA bilaterally CVS: RRR no M/G/R appreciated Abd: soft, NT no HSM appreciated Ext: no pitting edema Skin: no rash, + petechiae present on lower legs bilaterally Lymph: no cervical, supraclavicular adenopathy Neuro: CN II-XII grossly intact Labs: Lab Results Component Value Date WBC 0.4* 08/02/2015 RBC 2.64* 08/02/2015 HB 7.5* 08/02/2015 HCT 20.8* 08/02/2015 MCV 78.8* 08/02/2015 MCHC 36.1 08/02/2015 RDW 32.9* 07/30/2015 PLT 3* 08/02/2015 MPV 11.6 07/30/2015 NRBCPERC 0.0 07/30/2015 NRBCABS 0.00 07/30/2015 NEUTROPERC 16.3* 07/30/2015 LYMPHPERC 26.7 07/30/2015 BANDSPCT 0.0 07/30/2015 MONOPERC ---- 08/02/2015 EOSPERC ---- 08/02/2015 BASOPERC ---- 08/02/2015 IMGRANPERC 7.0* 07/30/2015 NEUTROPHILCO ---- 08/02/2015 BANDSABS 0.00 07/30/2015 LYMPHSABS 0.18* 07/30/2015 MONOCYTECO ---- 08/02/2015 EOSCO ---- 08/02/2015 BASOPHILCO ---- 08/02/2015 IMGRANABS 0.05* 07/30/2015 Lab Results Component Value Date NA 140 08/02/2015 K 4.7 08/02/2015 CL 104 08/02/2015 BICARB 29 08/02/2015 BUN 12 08/02/2015 CR 1.3 08/02/2015 GLU 107 08/02/2015 CA 9.3 08/02/2015 ANIONGAP 8 07/15/2015 ANIONALBCOR 7 07/15/2015 Lab Results Component Value Date AST 21 08/02/2015 ALT 28 08/02/2015 TBILI 0.6 08/02/2015 AP 60 08/02/2015 TP 6.8 08/02/2015 ALB 3.7 08/02/2015 LDH: 115 Assessment and Plan: 1. 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 He is s/p treatment with 3+7, with residual disease, then HAM re-induction. Marrow after re-in duction with hypocellular marrow (15%) with ~80% blasts/promonocytes c/w residual disease. B last immunophenotype (10% by flow): dim CD13, CD33, CD34, variable CD56, variable CD117, and dim [id number]; promonocyte immunophenotype (70% by flow): CD11b, CD13, CD14, variable CD16, CD33, variable CD56, CD64, and HLA-DR- positive. Cytogenetic and FISH studies remained normal, genetrails to evaluate for persistence of NRAS pending. He is currently day +15 of treatment with decitabine; thus far he is physically tolerating therapy well although he re mariaelena pancytopenic and transfusion dependent. However, do not expect that he will recover h is counts as long as he remains on decitabine. The overall plan is to proceed with allogeneic hsct, although at this time a matched donor has not been identified. At this time are evaluating possible double-cord transplant vs hap lo. For now will continue decitabine until a transplant course has been defined; next cycle of decitabine to be the first week of aug. Should a transplant option become available haley or to his next cycle of decitabine, will proceed to transplant instead. With ongoing pancyt openia and transfusion dependence will continue checking CBC 3 times weekly, transfusion par ameters as below: - 1 unit PRBC for hct <21% - pph for plts < 10k --> continue to check CBC 2-3x/week 2. Infectious Disease: Khurram is currently on prophylactic acyclovir and posaconazole al tata with levofloxacin for gram negative prophylaxis as he is neutropenid. As he is expected to have prolonged pancytopenia, will add bactrim for PCP coverage (no bactrim with low plate lets). - Acyclovir 800 mg PO daily - Posaconazole 300 mg PO daily - Levofloxacin 500 mg PO daily - Schedule pentamidine infusion for later this week --> continue to monitor temp two to three times daily; pt reminded to call immediately for any temp > 100.4. --> continue peridex as prescribed RTC in 3 days for labs, MD visit. This patient was seen and discussed with Dr. Garcia who agrees with the assessment and plan a s stated above. Deedee Mendoza MD Fellow, Hematology / Oncology 1 2:06 PM PSTJhno Leblanc MA - 08/02/2015 11:27 AM PSTName of Test: CBC Result: PLT 3 Time Results Received: 1124 Name of Provider Notified: Yari Garcia MD Date/Time of Provider Notification: 08/02/15 1127 Action(s) Taken: Readback, nurse notified. Paco Leblanc [...] 2019 | Visit | Malignancy | [address] [facility] | | | | | | [address] | | | | | | [place], [place] | | | | | | [address] | | | | | | [phone] | | | | | | | | +--------+---------+ + + + documented as of this encounter Visit Diagnoses + + | Diagnosis | + + | Acute myeloid leukemia (AML), M4 (HCC) - Primary | + + documented in this encounter"
--- OUTSIDE RECORDS SUMMARY | ~2019-05-17 | XMS | Encounter Summary ---
Demographics + + + | Address | [address] | | | [place] [address] | + + + | Home Phone | | + + + | Preferred Language | Unknown | + + + | Marital Status | | + + + | Judaism Affiliation | SPI | + + + | Race | White | + + + | Ethnic Group | Not or | + + + Author + + + | Author | [facility] | + + + | Organization | [facility] | + + + | Address | Unknown | + + + | Phone | Unavailable | + + + Support + + +---------+ + | Name | Relationship | Address | Phone | + + +---------+ + | Gabriel Kelly | ECON | Unknown | | + + +---------+ + Care Team Providers + +------+ + | Care Mica Washer Gluer Name | Role | Phone | + [...] | | | | | | [place], | | | | | | | [place] | | | | | | | [address] | | | | | | | Phone: | | | | | | | [phone] | | | | | | | Fax: | | | | | | | [phone] | +--------+--------+ + + + + Encounter Details +--------+---------+ + + + | Date | Type | Department | Care Team | Description | +--------+---------+ + + + | 03/15/ | Office | Center for | Aspen Cummins FNP | S/P allogeneic bone | | 2016 | Visit | Hematologic | [address] | marrow transplant | | | | Malignancies at | [address] | (HCC) (Primary Dx) | | | | [facility] | [place], [place] | | | | | [address] | [address] | | | | | [address] Mailcode: | [phone] | | | | | [id number] | | | | | | [place], | | | | | | [place] [address] | | | | | | [phone] | | | +--------+---------+ + + + [...] + + + | Blood Pressure | 138/74 | 03/15/2016 10:04 AM | | | | | PDT | | + + + + + | Pulse | 62 | 03/15/2016 10:04 AM | | | | | PDT | | + + + + + | Temperature | 36.5 C (97.7 F) | 03/15/2016 10:04 AM | | | | | PDT | | + + + + + | Respiratory Rate | 18 | 03/15/2016 10:04 AM | | | | | PDT | | + + + + + | Oxygen Saturation | 99% | 03/15/2016 10:04 AM | | | | | PDT | | + + + + + | Inhaled Oxygen | - | - | | | Concentration | | | | + + + + + | Weight | 98.2 kg (216 lb 7.9 | 03/15/2016 10:04 AM | | | | oz) | PDT | | + + + + + | Height | - | - | | + + + + + | Body Mass Index | 27.49 | 01/25/2016 8:24 AM | | | | | PDT | | + + + + + documented in this encounter Patient Instructions Patient Instructions Aspen Cummins FNP - 03/15/2016 11:34 AM PDT1. Restart Bactrim DS 1 t ablet by mouth twice daily on Mondays and 2. We'll stop the pentamidine 3. Decrease prednisone 20 mg by mouth every other day alternating with 5 mg by mouth every other day 4. OK to swim 2 weeks after your central line was removed 5. Return to clinic to start cycle 6 of azacitidine on 03/20/16 6. Follow up with me on 03/22/16 or sooner as needed documented in this encounter Progress Notes Aspen Cummins FNP - 03/15/2016 7:24 AM PDT 03/15/2016 [facility] Primary CHM MD: Yari Garcia MD Primary Oncologist: Yari Garcia MD Diagnosis: AMML, primary refractory Transplant Date: 08/27/15 Donor: MM URD (DPB1 permissive antigen mismatch, male, [id number]) Identifying Data: Khurram Kelly is a 25 [...] his L ankle. He was evaluated at [place] ED on 06/[address] angiogram negative [...] acute myelomonocytic leukemia. He was referred to [facility] for further evaluation and man agement of his newly dx'd AML. Pt was admitted to [facility] on 05/26/15. Peripheral blood [...] CD34, variable CD56, variable CD117, and dim [id number] mickey; promonocyte immunophenotype (70% by flow): CD11b, [...] durin g taper. He is currently day +201 s/p transplant, day 24, c5 of azacitidine and returns to clinic to day for scheduled follow-up. Interim History: Khurram was most recently evaluated in our [facility] clinic by Yari Garcia MD on 03/06/16. Continues to feel well overall. Skin rash has c ompletely resolved. Appetite is good. Continues with mild intermittent nausea, no antiemeti cs required. Active at home, golfing and walking. Has started to jog a little during his wa lks but finds he tires out quickly. Anxiety persists. Feels clonazepam lasts a little long er than xanax but still requires a breakthrough dose in the afternoon. He's interested in [place] ining a support group rather than one-on-one therapy. Review of Systems Constitutional: Negative for fever, chills and malaise/fatigue. HENT: Negative for headaches, congestion and sore throat. Respiratory: Negative for cough and shortness of breath. Cardiovascular: Negative for chest pain and leg swelling. Gastrointestinal: Positive for nausea. Negative for vomiting, abdominal pain and diarrhea. Genitourinary: Negative [...] taking narcotics. predniSONE 10 mg oral tablet Take 20 mg (two 10 mg tablets) by mouth alternating with 1 5 mg (one and one-half 10 mg tablets) every other day tacrolimus 0.5 mg [...] use Chloraprep for dresssing change per pt. Vitals 03/15/2016 Systolic 138 Diastolic 74 Pulse 62 Temperature 97.7 Respirations 18 Weight 98.2 kg (216 lb 7.9 oz) SpO2 99 Pain Scale 0 - Zero Physical Exam Constitutional: He is well-developed, well-nourished, [...] reviewed. Lab Results Component Value Date WBC 7.7 03/15/2016 HB 13.1 03/15/2016 HCT 37.0 03/15/2016 PLT 167 03/15/2016 MCV 104.8 03/15/2016 RDW 60.3 11/22/2015 Lab Results Component Value Date BICARB 24 03/15/2016 TBILI 0.3 03/15/2016 CA 9.5 03/15/2016 CL 103 03/15/2016 CR 0.8 03/15/2016 GLU 119* 03/15/2016 AP 90 03/15/2016 TP 7.1 03/15/2016 BUN 12 03/15/2016 ALB 3.8 03/15/2016 AST 63* 03/15/2016 NA 140 03/15/2016 K 4.3 03/15/2016 ALT 142* 03/15/2016 Assessment/Plan: 1. Hematology: Khurram Kelly is currently day +201 s/p tBuCy-conditioned unrel ated donor PBSC transplant [...] He began maintenance azacitidine on 11/01/15, currently c24, day 5. Peripheral blood counts WNL. He continues without evidence of disease by peripheral smear . --> continue CBC q1 week --> plan to complete 6 cycles of post-transplant azacitidine due to active disease at time of transplant; c6 due to begin 03/20/16 --> repeat marrow studies after c6 of azacitidine 2. Hpsgt-tj-Dppt Disease: Skin bx due to mild rash [...] he was seen in the ED in [place] in late 01/21. Prednisone was increased back to 20 mg po daily. Skin bx 02/10/16 showed vaculolar inter face mixed dermatitis with eosinophils. DDx included GvHD and drug hypersensitivity reaction . Rash resolved with increased dose prednisone. Stable transaminitis noted; ddx includes GvH D, medications, iron overload, fatty liver. Tolerating a taper of prednisone without s/s act mickey GvHD. --> decrease prednisone to 20 mg po every other day alt with 5 mg po every other day --> continue tacrolimus 0.5 mg bid without additional taper --> continue oral non-absorbables 3. Infectious Disease: Afebrile without localizing s/s infection. He continues prophylactic acyclovir and monthly pentamidine. Completed a treatment course of valganciclovir for CMV r eactivation on 12/16/15. His most recent CMV PCR on 03/06/16 remains undetected. Immune reconst itution panel collected 11/22/15 showed normal total T cells with increased CD8+ T cell subse ts, normal total NK cells, decreased B cells with decreased margarita B cells and minimal immun e activation with CD4 count 385. Post transplant vaccines currently on hold due to azacitidi ne maintenance therapy. --> continue acyclovir --> d/c pentamidine --> begin Bactrim DS 1 tab po BID q / --> due to CMV reactivation prior to day +100, continue to monitor PCRs q1-2 weeks through day +270 Lab Results Component Value Date CMVQUANTPCR Undetected 03/06/2016 CMVQUANTPCR Undetected 02/28/2016 CMVQUANTPCR Undetected 02/21/2016 CMVQUANTPCR Undetected 02/16/2016 4. Fluid, Electrolyte and Nutrition: Appetite is good, continues to eat well with adequate po fluid intake. Intermittent mild nausea persists, no antiemetics required. His electrolyt es are reviewed and are within acceptable limits. [...] mg po BID with kath kthrough prn. States he's taking 1 breakthrough dose every afternoon. Interested in a peer s upport group. --> continue clonazepam 0.5 mg po BID with 0.5 mg po q8h prn breakthrough --> can titrate clonazepam q3 days as tolerated for ongoing anxiety, max dose 4 mg po daily --> pt provided with information for [employer] to establish peer support --> look into AYA support group resources available at [facility] 7. Follow up --> scheduled to begin c6 of azacitidine on 03/20/16 --> RTC to f/u with me on 03/22/16, sooner prn [facility] [place] [address] [facility] Mailcode: [id number] [place] [phone] documented in this enc ounter Plan of [...] Rd | | | | | | [place], [place] | | | | | | [address] | | | | | | [phone] | | | | | | | | +--------+---------+ + + + documented as of this encounter Procedures + +--------+ + + + | Procedure Name | Priori | Date/Time | Associated Diagnosis | Comments | | | ty | | | | + +--------+ + + + | ORDERS OTHER | | 03/15/2016 | | Results for this | | | | 12:00 AM | | procedure are in the | | | | PDT | | results section. | + +--------+ + + + documented in this encounter Results ORDERS OTHER (03/15/2016 12:00 AM PDT) + + + | Narrative | Performed At | + + + | | | + + + documented in this encounter Visit Diagnoses + + | Diagnosis | + + | 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
--- OUTSIDE RECORDS SUMMARY | ~2019-05-17 | XMS | Encounter Summary ---
Demographics + + + | Address | [address] | | | [place] [address] | + + + | Home Phone [...] Team Providers + +------+ + | Care Electronic Equipment Repairmen Name | Role | Phone | + +------+ + | No Pcp Per Patient | PCP | Unavailable | + +------+ + Encounter Details +--------+------+ + + + | Date | Type | Department | Care Team | Description | +--------+------+ + + + | 01/01/ | Lab | Laboratory, | | S/P allogeneic bone | | 2016 | | Specimen Collection | | marrow transplant | | | | at [facility] 3rd Floor | | ([facility]) | | | | [address] | | | | | | [place], | | | | | | [place] [address] | | | | | | [phone] | | | +--------+------+ + + + [...] 2019 | Visit | Malignancy | [address] [facility] | | | | | | [address] | | | | | | [place], [place] | | | | | | [address] | | | | | | [phone] | | | | | | | | +--------+---------+ + + + documented as of this encounter Procedures + +--------+ + + + | Procedure Name | Priori | Date/Time | Associated Diagnosis | Comments | | | ty | | | | + +--------+ + + + | CBC AND AUTO DIFF | Urgent | 01/01/2017 | S/P allogeneic | Results for this | | | | 11:31 AM | bone marrow | procedure are in the | | | | PDT | transplant (HCC) | results section. | + +--------+ + + + | CBC, WITH | Urgent | 01/01/2017 | S/P allogeneic | Results for this | | DIFFERENTIAL | | 11:31 AM | bone marrow | procedure are in the | | | | PDT | transplant (HCC) | results section. | + +--------+ + + + documented in this encounter Results CBC AND AUTO DIFF (01/01/2017 11:31 AM PDT) + + + + + + | Component | Value | Ref Range | Performed | Pathologist | | | | | At | Signature | + + + + + + | WHITE CELL | 10.79 | 3.50 - 10.80 | [facility] | [...] + + + + | HEMOGLOBIN | 13.8 | 13.5 - 17.5 | [facility] | | | | | g/dL | LABORATORY | | | | | | SERVICES, | | | | | | CORE | | + + + + + + | HEMATOCRIT | 42.5 | 41.0 - 53.0 % | [facility] | | | | | | LABORATORY | | | | | | SERVICES, | | | | | | CORE | | + + + + + + | MCV | 96.4 (H) | 80.0 - 96.0 fL | [facility] | | | | | | LABORATORY | | | | | | SERVICES, | | | | | | CORE | | + + + + + + | MCHC | 32.5 | 33.0 - 35.5 | [facility] | | | | | g/dL | LABORATORY | | | | | | SERVICES, | | | | | | CORE | | + + + + + + | RDW SD | 50.4 (H) | 35.1 - 46.3 fL | [facility] | | | | | | LABORATORY | | | | | | SERVICES, | | | | | | CORE | | + + + + + + | PLATELET | 268 | 150 - 400 K/cu | [facility] [...] + + + + | NEUTROPHIL | 71.7 (H) | 50.0 - 70.0 % | [facility] | | | % | | | LABORATORY | | | | | | SERVICES, | | | | | | CORE | | + + + + + + | LYMPHOCYTE | 18.2 | 18.0 - 42.0 % | [facility] | | | % | | | LABORATORY | | | | | | SERVICES, | | | | | | CORE | | + + + + + + | MONOCYTE % | 7.5 | 3.5 - 9.0 % | [facility] | | | | | | LABORATORY | | | | | | SERVICES, | | | | | | CORE | | + + + + + + | EOS % | 1.8 | 1.0 - 3.0 % | [facility] | | | | | | LABORATORY | | | | | | SERVICES, | | | | | | CORE | | + + + + + + | BASO % | 0.2 | 0.0 - 2.0 % [...] + + + + | NEUTROPHIL | 7.74 (H) | 1.80 - 7.70 | [facility] | | | # | | K/cu mm | LABORATORY | | | | | | SERVICES, | | | | | | CORE | | + + + + + + | LYMPHOCYTE | 1.96 | 1.00 - 4.80 | [facility] | | | # | | K/cu mm | LABORATORY | | | | | | SERVICES, | | | | | | CORE | | + + + + + + | MONOCYTE # | 0.81 | 0.10 - 0.90 | [facility] | | | | | K/cu mm | LABORATORY | | | | | | SERVICES, | | | | | | CORE | | + + + + + + | EOS # | 0.19 | 0.00 - 0.50 | [facility] | | | | | K/cu mm | LABORATORY | | | | | | SERVICES, | | | | | | CORE | | + + + + + + | BASO # | 0.02 | 0.00 - 0.10 | [facility] | | | | | K/cu mm | LABORATORY | | | | | | SERVICES, | | | | | | CORE | | + + + + + + | IG# | 0.07 (H) | 0.00 - 0.03 | [facility] [...] | included in the neutrophil count. | SERVICESINDRA | + + + + + + + + | Performing | Address | City/State/Zipcode | Phone Number | | Organization | | | | + + + + + | [facility] | [address] | [place] [address] | | | SERVICES, INDR[place] | [address] | | | + + + + + documented in this encounter Visit Diagnoses + + | Diagnosis | + + | 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
--- OUTSIDE RECORDS SUMMARY | ~2019-05-17 | XMS | Encounter Summary ---
Demographics + + + | Address | [address] | | | [place] [address] | + + + | Home Phone [...] Team Providers + +------+ + | Care Rigging Engineer Name | Role | Phone | [...] Description | +--------+--------+ + + + | 01/30/ | Refill | Center for | Yari Garcia MD | Refill Request | | 2017 | | Hematologic | [address] [facility] | | | | | Malignancies at | [address] | | | | | [place] | [place], [place] | | | | | [address] | [address] | | | | | [place] Mailcode: | [phone] | | | | | [id number] [facility] | | | | | | [place], | | | | | | [place] [address] | | | | | | [phone] | | | +--------+--------+ + + + [...] Rd | | | | | | [place] | | | | | | [address] | | | | | | [phone] | | | | | | | | +--------+---------+ + + + documented as of this encounter Visit Diagnoses Not on filedocumented in this encounter"
--- OUTSIDE RECORDS SUMMARY | ~2019-05-17 | XMS | Encounter Summary ---
Demographics + + + | Address | [address] | | | [place] [address] | + + + | Home Phone | | + + + | Preferred Language | Unknown | + + + | Marital Status | | + + + | Pentecostalism Affiliation | SPI | + + + [...] Team Providers + +------+ + | Care Adon Name | Role | Phone | + +------+ + | Zayda Hinton | PCP | | + +------+ + Encounter Details +--------+ + + + + | Date | Type | Department | Care Team | Description | +--------+ + + + + | 07/26/ | Pharmacy | Specialty Pharmacy | | | | 2016 | Visit | Services [address] | | | | | [address] | | | | | | [place], [place] | | | | | | [address] | | | | | | [phone] | | | +--------+ + + + [...] 2019 | Visit | Malignancy | [address] [facility] | | | | | | [address] | | | | | | [place], [place] | | | | | | [address] | | | | | | [phone] | | | | | | | | +--------+---------+ + + + documented as of this encounter Visit Diagnoses Not on filedocumented in this encounter"
--- OUTSIDE RECORDS SUMMARY | ~2019-05-17 | XMS | Encounter Summary ---
Demographics + + + | Address | [address] | | | [place] [address] | + + + | Home Phone | | + + + | Preferred Language | Unknown | + + + | Marital Status | | + + + | Gnosticism Affiliation | SPI | + + + | Race | White | + + + | Ethnic Group | Not or | + + + Author + + + | Author | [facility] | + + + | Organization | [facility] | + + + | Address | Unknown | + + + | Phone | Unavailable | + + + Support + + +---------+ + | Name | Relationship | Address | Phone | + + +---------+ + | Gabriel Kelly | ECON | Unknown | | + + +---------+ + Care Team Providers + +------+ + | Care Message Clerk Name | Role | Phone | + +------+ + | Pending Pcp Addition | PCP | Unavailable | + +------+ + Reason for Visit + + + | Reason | Comments | + + + | Lab Draw | | + + + | Dressing change | | + + + Benefits Check [...] | | | | | | | [address] | | | | | | | [address] | | | | | | | [place], | | | | | | | [place] | | | | | | | [address] | | | | | | | Phone: | | | | | | | [phone] | | | | | | | Fax: | | | | | | | [phone] | +--------+--------+ + + + + Encounter Details +--------+ + + + + | Date | Type | Department | Care Team | Description | +--------+ + + + + | 01/05/ | Clinical | Center for | | Lab Draw; Dressing | | 2016 | Support | Hematologic | | change | | | Staff | [facility] at [facility] | | | | | | [address] | | | | | | [place] Mailcode: | | | | | | [id number] | | | | | | [place], | | | | | | [place] [address] | | | | | | [phone] | | | +--------+ + + + [...] documented as of this encounter Progress Notes Lucero Rodriguez RN - 01/06/2016 10:39 AM PDTINFUSION/TRANSFUSION NURSING NOTE Name: Khurram Kelly Date: 01/06/2016 Provider: Jose Subjective: Khurram is here for labs and supportive cares. 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 He also has no past medical history of Blindness, Other and unspecifi ed symptoms and signs involving general sensations and perceptions, Hearing loss, Arrhythmia , Congestive heart failure (HCC), Sleep apnea, Pulmonary tuberculosis, Asthma, Chronic airwa y obstruction (HCC), Regional enteritis (HCC), GERD (gastroesophageal reflux disease), Herni a, hiatal, Irritable bowel syndrome, Ulcerative colitis (HCC), Encounter for extracorporeal dialysis ([facility]), Kidney stones, UTI (urinary tract infection), Type 2 diabetes mellitus (HCC) , Type 1 diabetes mellitus (HCC), Disorder of adrenal gland (HCC), Anxiety state, Depressive disorder, Migraine, Nonpsychotic mental disorder, Panic disorder, Acute, but ill-defined, c erebrovascular disease (HCC), High risk for colon cancer, Heart attack (HCC), Undiagnosed ca rdiac murmurs, Hyperlipidemia, Hypertension, Shortness of breath, Pneumonia, organism unspec ified, or At risk for colon cancer. Pre-Infusion Pain Score: Patient reports a pain level of 0 today. For Treatment Done in Clinic Today refer to MAR Dressing change: Pre-procedure pain level: 0 Neostar intact to [...] port. A ll lumens pulse flushed with 10 mL NS. Patient tolerated procedure without difficulty. Post-procedure pain level: 0 VAD Lab Draw: Neostar accessed per protocol. Good blood return noted. Appropriate waste discarded. Lab s drawn and sent. Neostar pulse flushed with 20 mL NS. Patient scheduled for provider visi t today with Yari Garcia. Infusion Plan: No transfusions/infusions required today. Post Infusion Pain score: 0 Assessment: Tolerated procedure and Intact Lucero Rodriguez RN documented in this encounter Plan of [...] 2018 | Visit | Malignancy | [address] [facility] | | | | | | [facility] | | | | | | [place], [place] | | | | | | [address] | | | | | | [phone] | | | | | | | | +--------+---------+ + + + documented as of this encounter Procedures + +--------+ + + + | Procedure Name | Priori | Date/Time | Associated Diagnosis | Comments | | | ty | | | | + +--------+ + + + | BMP + MAG, POC CHM | Routin | 01/06/2016 | S/P allogeneic | Results for this | | | e | 10:39 AM | bone marrow | procedure are in the | | | | PDT | transplant ([facility]) | results section. 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 | | | | | | induction failure | | + +--------+ + + + | CBC+DIFF,POC | Routin | 01/06/2016 | S/P allogeneic | Results for this | | | e | 10:30 AM | bone marrow | procedure are [...] + | LIVER SET | Urgent | 01/06/2016 | S/P allogeneic | Results for this | | (AST,ALT,BILI | | 10:12 AM | bone marrow | procedure are [...] encounter Results BMP + MAG, POC CHM (01/06/2016 10:39 AM PDT) + +---------+ + + + | Component | Value | Ref Range | Performed | Pathologist | | | | | At | Signature | + +---------+ + + + | SODIUM, POC | 142 | 134 - 143 | [facility] - [...] + + + | LDH, POC | 313 (H) | 0 - 206 U/L | [...] [facility] | [address] | [place], [place] | | | [facility] | [address] | [address] | | | TESTS | | | | + + + + + CBC+DIFF,POC (01/06/2016 10:30 AM PDT) + + + + + + | Component | Value | Ref Range | Performed | Pathologist | | | | | At | Signature | + + + + + + | WBC POC | 7.4 | 4.4 - 11.0 | [facility] - | | | | | 10*3/uL | [facility] | | | | | | [facility] | | | | | | OF CARE | | | | | | TESTS | | + + + + + + | RBC POC | 3.55 (L) | 4.50 - 6.00 | [facility] - | | | | | 10*6/uL | [facility] | | | | | | [facility] | | | | | | OF CARE | | | | | | TESTS | | + + + + + + | HGB POC | 12.7 (L) | 13.5 - 17.5 | [facility] - | | | | | g/dL | [facility] | | | | | | [facility] | | | | | | OF CARE | | | | | | TESTS | | + + + + + + | HCT POC | 37.2 (L) | 41.0 - 53.0 % | [facility] - | | | | | | [facility] | | | | | | [facility] | | | | | | OF CARE | | | | | | TESTS | | + + + + + + | MCV POC | 104.8 (H) | 80.0 - 96.0 fL | [facility] - | | | | | | [facility] | | | | | | [facility] | | | | | | OF CARE | | | | | | TESTS | | + + + + + + | MCH POC | 35.8 (H) | 28.5 - 32.3 pg | [facility] - | | | | | | [facility] | | | | | | [facility] | | | | | | OF CARE | | | | | | TESTS | | + + + + + + | MCHC POC | 34.1 | 33.0 - 35.5 | [facility] - | | | | | g/dL | [facility] | | | | | | [facility] | | | | | | OF CARE | | | | | | TESTS | | + + + + + + | RDW SD, POC | 53.5 (H) | 35.1 - 46.3 fL | [facility] - | | | | | | [facility] | | | | | | [facility] | | | | | | OF CARE | | | | | | TESTS | | + + + + + + | PLT POC | 66 (L) | 150 - 400 | [facility] [...] + + + + | NEUTROPHIL% | 63.8 | 50.0 - 70.0 % | [facility] - | | | POC | | | [facility] | | | | | | [facility] | | | | | | OF CARE | | | | | | TESTS | | + + + + + + | LYMPH% POC | 26.7 | 18 - 42 % | [facility] [...] + + | EOS %, POC | 1.3 | 1.0 - 3.0 % | [facility] - | | | | | | [facility] | | | | | | [facility], POINT | | | | | | OF CARE | | | | | | TESTS | | + + + + + + | BASO %, POC | 0.1 | 0.0 - 2.0 % | [facility] - | | | | | | [facility] | | | | | | [place], POINT | | | | | | OF CARE | | | | | | TESTS | | + + + + + + | NEUTROPHIL# | 4.7 | 1.8 - 7.7 | [facility] - | | | POC | | 10*3/uL | [facility] | | | | | | [facility] | | | | | | OF CARE | | | | | | TESTS | | + + + + + + | LYMPH# POC | 2.0 | 1.0 - 4.8 | [facility] - [...] [facility] | [address] | [place], [place] | | | [facility] | [address] | [address] | | | TESTS | | | | + + + + + LIVER SET (AST,ALT,BILI TOTAL,BILI DIRECT,ALK PHOS,ALB,PROT TOTAL) (01/06/2016 10:12 AM PDT ) + +---------+ + + [...] + + + | ALK PHOS | 83 | 53 - 128 U/L | [facility] | | | | | | LABORATORY | | | | | | SERVICES, | | | | | | CORE | | + +---------+ + + + | AST(SGOT) | 74 (H) | <=41 U/L | [facility] | | | | | | LABORATORY | | | | | | SERVICES, | | | | | | CORE | | + +---------+ + + + | ALT (SGPT) | 243 (H) | <=60 U/L | [facility] | [...] [facility] | [address] | [place] [address] | | | SERVICES, CORE | PARK [...]
--- OUTSIDE RECORDS SUMMARY | ~2019-05-17 | XMS | Encounter Summary ---
Demographics + + + | Address | [address] | | | [place] [address] | + + + | Home Phone | | + + + | Preferred Language | Unknown | + + + | Marital Status | | + + + | Orthodoxy Affiliation | SPI | + + + | Race | White | + + + | Ethnic Group | Not or | + + + Author + + + | Author | [facility] | + + + | Organization | [facility] | + + + | Address | Unknown | + + + | Phone | Unavailable | + + + Support + + +---------+ + | Name | Relationship | Address | Phone | + + +---------+ + | Gabriel Kelly | ECON | Unknown | | + + +---------+ + Care Team Providers + +------+ + | Care Spiral Tube Winder Name | Role | Phone | + +------+ + | Pending Pcp Addition | PCP | Unavailable | + +------+ + Reason for Visit + + + | Reason | Comments | + + + | Schedule labs | periph | + + + Benefits Check (Routine) [...] | | | | | | | [address] | | | | | | | [address] | | | | | | | [place], | | | | | | | [place] | | | | | | | [address] | | | | | | | Phone: | | | | | | | [phone] | | | | | | | Fax: | | | | | | | [phone] | +--------+--------+ + + + + Encounter Details +--------+ + + + + | Date | Type | Department | Care Team | Description | +--------+ + + + + | 03/15/ | Clinical | Center for | | Schedule labs | | 2016 | Support | Hematologic | | [facility] | | | Staff | [facility]ign[facility] at [facility] | | | | | | [address] | | | | | | [address] Mailcode: | | | | | | [id number] [place] | | | | | | [place], | | | | | | [place] [address] | | | | | | [phone] | | | +--------+ + + + [...] documented as of this encounter Progress Notes Jyoti Ramachandran RN - 03/15/2016 10:51 AM PDTPatient reports he is feeling well today. Aidan living[place] reports having some nausea here and here, but nothing bad enough to require any antiemet ics. Reports that his energy level has been great and went on a couple mile walk/jog recentl y. The patient denies colds, flu, fever, infection, vomiting, diarrhea, constipation, neurop athy, mucositis, edema, skin rash, urinary issues, and signs or symptoms of bleeding. The patient reports that he is eating well and drinking at least two liters of fluid daily. Right AC accessed with a 23 gauge butterfly needle. Labs drawn and sent. Tolerated proced ure well. Site dressed with sterile gauze and Coban. Patient scheduled for provider visit today with Aspen VILLALBA. Pt discharged from clinic. Left clinic Ambulatory accompanied by spouse. Jyoti Ramachandran RN documented in this enc ounter Plan [...] [address] | | | | | | [place], [place] | | | | | | [address] | | | | | | [phone] | | | | | | | | +--------+---------+ + + + documented as of this encounter Procedures + +--------+ + + + | Procedure Name | Priori | Date/Time | Associated Diagnosis | Comments | | | ty | | | | + +--------+ + + + | BMP + MAG, POC CHM | Routin | 03/15/2016 | S/P allogeneic | Results for this | | | e | 10:25 AM | bone marrow | procedure are in the | | | | PDT | transplant (HCC) | results section. 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 | | + +--------+ + + + | TREATMENT PARAMETERS | Routin | 03/15/2016 | 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 | 9:48 AM | leukemia (AML), M4 | | | | | PDT | ([facility])- primary | | | | | | induction failure | | + +--------+ + + + | TREATMENT PARAMETERS | Routin | 03/15/2016 | 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 | 9:48 AM | leukemia (AML), 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 | | | | | | induction failure | | + +--------+ + + + | TREATMENT PARAMETERS | Routin | 03/15/2016 | 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 | 9:48 AM | leukemia (AML), M4 | | | | | PDT | ([facility])- primary | | | | | | induction failure | | + +--------+ + + + | TREATMENT PARAMETERS | Routin | 03/15/2016 | 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 | 9:48 AM | leukemia (AML), M4 | | | | | PDT | ([facility])- primary | | | | | | induction failure | | + +--------+ + + + | TREATMENT PARAMETERS | Routin | 03/15/2016 | 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 | 9:48 AM | leukemia (AML), M4 | | | | | PDT | ([facility])- primary | | | | | | induction failure | | + +--------+ + + + | NURSING | Routin | 03/15/2016 | S/P allogeneic | | | COMMUNICATION #5 - | e | 9:48 AM | bone marrow | | | [facility] | | PDT | transplant (HCC) | 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[facility])- primary | | | | | | induction failure | | + +--------+ + + + | NURSING | Routin | 03/15/2016 | S/P allogeneic | | | COMMUNICATION #4 - | e | 9:48 AM | bone marrow | | | [facility] | | PDT | transplant (HCC) | 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 | | + +--------+ + + + | NURSING | Routin | 03/15/2016 | S/P allogeneic | | | COMMUNICATION #3 - | e | 9:48 AM | bone marrow | | | [facility] | | PDT | transplant (HCC) | 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 | | + +--------+ + + + | NURSING | Routin | 03/15/2016 | S/P allogeneic | | | COMMUNICATION #3 - | e | 9:48 AM | bone marrow | | | [facility] | | PDT | transplant (HCC) | 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[facility])- primary | | | | | | induction failure | | + +--------+ + + + | NURSING | Routin | 03/15/2016 | S/P allogeneic | | | COMMUNICATION #2 - | e | 9:48 AM | bone marrow | | | [facility] | | PDT | transplant (HCC) | 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 | | + +--------+ + + + | NURSING | Routin | 03/15/2016 | S/P allogeneic | | | COMMUNICATION #2 - | e | 9:48 AM | bone marrow | | | [facility] | | PDT | transplant (HCC) | 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 | | + +--------+ + + + | NURSING | Routin | 03/15/2016 | S/P allogeneic | | | COMMUNICATION #1 - | e | 9:48 AM | bone marrow | | | [facility] | | PDT | transplant (HCC) | 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 | | + +--------+ + + + | NURSING | Routin | 03/15/2016 | S/P allogeneic | | | COMMUNICATION #1 - | e | 9:48 AM | bone marrow | | | [facility] | | PDT | transplant (HCC) | 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 | | + +--------+ + + + | GUIDELINES FOR | Routin | 03/15/2016 | S/P allogeneic | | | ORDERING #1 - [facility] | e | 9:48 AM | bone marrow | | | | | PDT | transplant (HCC) | 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 | | + +--------+ + + + | TREATMENT PARAMETERS | Routin | 03/15/2016 | S/P allogeneic | | | #1 - [facility] | e | 9:48 AM | bone marrow | | | | | PDT | transplant (HCC) | 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 | | + +--------+ + + + | TREATMENT PARAMETERS | Routin | 03/15/2016 | S/P allogeneic | | | #1 - [facility] | e | 9:48 AM | bone marrow | | | | | PDT | transplant (HCC) | 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 | | + +--------+ + + + | TREATMENT PARAMETERS | Routin | 03/15/2016 | S/P allogeneic | | | #1 - [facility] | e | 9:48 AM | bone marrow | | | | | PDT | transplant (HCC) | 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 | | + +--------+ + + + | CMV PCR | Routin | 03/15/2016 | S/P allogeneic | Results for this | | QUANTITATION, PLASMA | e | 9:48 AM | bone marrow | procedure are [...] + | LIVER SET | Urgent | 03/15/2016 | S/P allogeneic | Results for this | | (AST,ALT,BILI | | 9:48 AM | bone marrow | procedure are [...] encounter Results BMP + MAG, POC CHM (03/15/2016 10:25 AM PDT) + +---------+ + + + [...] +---------+ + + + | GLUCOSE, | 119 (H) | 60 - 99 mg/dL | [...] + + + | BUN, POC | 12 | 6 - 20 mg/dL | [facility] [...] + + + | LDH, POC | 329 (H) | 0 - 206 U/L | [facility] - | | | | | | [place] | | | | | | [facility]UTHIE [address]TER | | | | | | OF CARE | | | | | | TESTS | | + +---------+ + + + | MAGNESIUM, | 2.2 | 1.8 - 2.5 mg/dL | [facility] [...] S[facility] | [address] | [place], [place] | | | [facility] POINT OF CARE | [address] | [address] | | | TESTS | | | | + + + + + CBCPHIL LEE (03/15/2016 10:19 AM PDT) + + + + + + | Component | Value | Ref Range | Performed | Pathologist | | | | | At | Signature | + + + + + + | WBC POC | 7.7 | 4.4 - 11.0 | [facility] - [...] + + + | HGB POC | 13.1 (L) | 13.5 - 17.5 | [facility] - | | | | | g/dL | [place] | | | | | | [facility] POINT | | | | | | OF CARE | | | | | | TESTS | | + + + + + + | HCT POC | 37.0 (L) | 41.0 - 53.0 % | [...] + + + | MCH POC | 37.1 (H) | 28.5 - 32.3 pg | [facility] - | | | | | | [place] | | | | | | [facility] POINT | | | | | | OF CARE | | | | | | TESTS | | + + + + + + | MCHC POC | 35.4 | 33.0 - 35.5 | [facility] - | | | | | g/dL | [place] | | | | | | [facility] POINT | | | | | | OF CARE | | | | | | TESTS | | + + + + + + | RDW SD, POC | 54.2 (H) | 35.1 - 46.3 fL | [...] + + + + | NEUTROPHIL% | 72.1 (H) | 50.0 - 70.0 % | [facility] - | | | POC | | | [place] | | | | | | [facility], POINT | | | | | | OF CARE | | | | | | TESTS | | + + + + + + | LYMPH% POC | 19.3 | 18 - 42 % | [facility] - | | | | | | [place] | | | | | | [facility] POINT | | | | | | OF CARE | | | | | | TESTS | | + + + + + + | MONO %, POC | 6.5 | 3.5 - 9.0 % | [facility] - | | | | | | [place] | | | | | | [facility] POINT | | | | | | OF CARE | | | | | | TESTS | | + + + + + + | EOS %, POC | 1.8 | 1.0 - 3.0 % [...] + + + + | NEUTROPHIL# | 5.6 | 1.8 - 7.7 | [facility] - | | | POC | | 10*3/uL | [place] | | | | | | RUTHIE CARTER | | | | | | OF CARE | | | | | | TESTS | | + + + + + + | LYMPH# POC | 1.5 | 1.0 - 4.8 | [facility] - [...] | | | [facility] | | | POC | | | [...] + + + | [facility]ESSICA [facility] | [address] | [place], [place] | | | R[facility]IE CARTER OF CARE | [address] | [address] | | | TESTS | | | | + + + + + LIVER SET (AST,ALT,BILI TOTAL,BILI DIRECT,ALK PHOS,ALB,PROT TOTAL) (03/15/2016 9:48 AM PDT ) + +---------+ + + [...] + + + | ALK PHOS | 90 | 53 - 128 U/L | [facility] | | | | | | LABORATORY | | | | | | SERVICES, | | | | | | CORE | | + +---------+ + + + | AST(SGOT) | 63 (H) | <=41 U/L | [facility] | | | | | | LABORATORY | | | | | | SERVICES, | | | | | | CORE | | + +---------+ + + + | ALT (SGPT) | 142 (H) | <=60 U/L | [facility] | | | | | | LABORATORY | | | | | | SERVICES, | | | | | | CORE | | + +---------+ + + + | TOTAL | 7.1 | 6.4 - 8.2 g/dL | [facility] [...] | + + + + + | [facility] | [address] | [place] [address] | | | SERVICES, CORE | [address] | | | + + + + + CMV PCR QUANTITATION, PLASMA (03/15/2016 9:48 AM PDT) + + + + + [...] 2 fold may not reflect true | [facility] | | biological changes and must [...] | | | characteristics determined by the [facility] | | | [facility] Diagnostic Center. It has not been cleared or approved by | | | the Food and Drug Administration. FDA approval is not required for | | | clinical use of this test, and therefore validation was done as | | | required under the requirements of the Clinical Laboratory Improvement | | | Act of 1988. The [facility] | | | Diagnostic Center is a fully licensed and/or accredited clinical | | | laboratory under CLIA, [facility], and the [facility]. | | + + + + + + + + | Performing | Address | City/State/Zipcode | Phone Number | | Organization | | | | + + + + + | [facility] | [address] | [place] [address] | | | DIAGNOSTIC | [address] [...]
--- OUTSIDE RECORDS SUMMARY | ~2019-05-17 | XMS | Encounter Summary ---
Demographics + + + | Address | [address] | | | [place] [address] | + + + | Home Phone | | + + + | Preferred Language | Unknown | + + + | Marital Status | | + + + | Roman Catholic Affiliation | SPI | + + + | Race | White | + + + | Ethnic Group | Not or | + + + Author + + + | Author | [facility] | + + + | Organization | [facility] | + + + | Address | Unknown | + + + | Phone | Unavailable | + + + Support + + +---------+ + | Name | Relationship | Address | Phone | + + +---------+ + | Gabriel Kelly | ECON | Unknown | | + + +---------+ + Care Team Providers + +------+ + | Care Automotive Service Director Name | Role | Phone | + +------+ + | Pending Pcp Addition | PCP | Unavailable | + +------+ + Reason for Visit + + + | Reason | Comments | + + + | Vaccination | | + + + Benefits Check [...] | | | | | | Rd [place], | | | | | | | [place] | | | | | | | [address] | | | | | | | Phone: | | | | | | | [phone] | | | | | | | Fax: | | | | | | | [phone] | +--------+--------+ + + + + Encounter Details +--------+ + + + + | Date | Type | Department | Care Team | Description | +--------+ + + + + | 06/28/ | Clinical | Center for | | Vaccination | | 2016 | Support | Hematologic | | | | | Staff | Malignancies at [facility] | | | | | | [address] | | | | | | [address] Mailcode: | | | | | | [id number] | | | | | | [place], | | | | | | [place] [address] | | | | | | [phone] | | | +--------+ + + + [...] documented as of this encounter Progress Notes Mini Disla MA - 06/28/2016 5:00 PM PST PCV13 from pharmacy injected IM in left de ltoid per orders. No reaction noted. See injection section for details. Date of transplant: 08/26/2015 Insurance: Payor: [email or web address] / Plan: [facility] / Product Type: PPO / Is patient eligible for free vaccine? No The patient was screened for the following contraindications to influenza vaccine and respo nses were as follows: Febrile illness today? No Allergy to eggs? No Prior history of a reaction to flu vaccine? No Prior history of Guillain-[place] syndrome? No (For patients receiving Fluarix): Allergy or sensitivity to Latex? No Influenza Vaccine information given to patient and reviewed by patient. Influenza vaccine from pharmacy given IM in left deltoid per protocol. Patient tolerated in jection well. See injection flowsheet. documented in this e ncounter Plan of [...] Rd | | | | | | [place], [place] | | | | | | [address] | | | | | | [phone] | | | | | | | [...] in this encounter Administered Medications + +--------+ +--------+------+---------+ | Medication Order | MAR | Action | Dose | Rate | Site | | | Action | Date | | | | + +--------+ +--------+------+---------+ | influenza vaccine (FLUZONE) | Given | 06/28/20 | 0.5 mL | | Left | | (PF) IM injection (age 3 years or | | 16 10:31 | | | Deltoid | | greater) 0.5 mL 0.5 mL, | | AM PST | | | | | intramuscular, ONCE, 1 dose, Wed | | | | | | | 06/28/16 at 1015 | | | | | | + +--------+ +--------+------+---------+ +---+---+ | | | +---+---+ + +-------+ +--------+---+---------+ | pneumococcal (13-dimas) conjugate | Given | 06/28/20 | 0.5 mL | | Left | | vaccine (PREVNAR 13) injection | | 16 10:30 | | | Deltoid | | 0.5 mL 0.5 mL, intramuscular, | | AM PST | | | | | ONCE, 1 dose, 06/28/16 at | | | | | | | 1015 | | | | | | + +-------+ +--------+---+---------+ +---+---+ | | | +---+---+ documented in this encounter"
--- OUTSIDE RECORDS SUMMARY | ~2019-05-17 | XMS | Encounter Summary ---
Demographics + + + | Address | [address] | | | [place] [address] | + + + | Home Phone | | + + + | Preferred Language | Unknown | + + + | Marital Status | | + + + | Methodist Affiliation | SPI | + + + [...] Team Providers + +------+ + | Care Engineering Specialist Technician Name | Role | Phone | + [...] marrow transplant | | | | at [facility] 3rd Floor | | ([facility]) | | | | [address] | | | | | | [place], | | | | | | [place] [address] | | | | | | [phone] | | | +--------+------+ + + + [...] 2019 | Visit | Malignancy | [address] | | | | | | [address] | | | | | | [place], [place] | | | | | | [address] | | | | | | [phone] | | | | | | | [...] | + + + + + | [facility] | [address] | [place] [address] | | | SERVICES, INDRA | [address] | | | + + + + + documented in this encounter Visit Diagnoses + + | Diagnosis | + + | 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
--- OUTSIDE RECORDS SUMMARY | ~2019-05-17 | XMS | Encounter Summary ---
Demographics + + + | Address | 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[facility] [address] | | | | | myeloid | [address] | | | | | leukemia) | [address] | [address] | | | | | (HCC) | [address] | Mailcode: | | | | | Encounter | [place], [place] | [id number] | | | | | for | [address] | [address] | | | | | long-term | Phone: | Building | | | | | current use | [phone] | [place], [place] | | | | | of | Fax: | [address] | | | | | medication | [phone] | Phone: | | | | | Procedures | | [phone] | | | | | TRANSTHORACI | | | | | | | C | | | | | | | ECHOCARDIOGR | | | | | | | AM, ADULT | | | | | | | AR ECHO | | | | | | [...] [place] | | | | | | [address] | | | | | | [address] | | | | | | Mailcode: [id number] | | | | | | [address] | | | | | | [facility], | | | | | | [place] [address] | | | | | | [phone] | | | +--------+ + + + [...] 2018 | Visit | Malignancy | [address] [facility] [address] | | | | | | [address] | | | | | | [place], [place] | | | | | | [address] | | | | | | [phone] | | | | | | | [...] | | CARDIOLOGY | [address] | [address] | | + + + + + [...]
--- OUTSIDE RECORDS SUMMARY | ~2019-05-17 | XMS | Encounter Summary ---
Demographics + + + | Address | [address] | | | [place] [address] | + + + | Home Phone [...] Team Providers + +------+ + | Care Street Light Mechanic Name | Role | Phone | + +------+ + | Zayda Hinton | PCP | | + +------+ + Encounter Details +--------+ + + + + | Date | Type | Department | Care Team | Description | +--------+ + + + + | 09/12/ | Ophth Exam | [facility] | Josie Ibrahim MD | | | 2016 | | Gay Cornea at | [address] | | | | | [address] | [place], [place] | | | | | [address] | [address] | | | | | Mailcode: [place] | [phone] | | | | | [place], [place] | | | | | | [address] | | | | | | [phone] | | | +--------+ + + + [...] Rd | | | | | | [place], [place] | | | | | | [address] | | | | | | [phone] | | | | | | | | +--------+---------+ + + + documented as of this encounter Visit Diagnoses Not on filedocumented in this encounter"
--- OUTSIDE RECORDS SUMMARY | ~2019-05-17 | XMS | Encounter Summary ---
Demographics + + + | Address | [address] | | | [place] [address] | + + + | Home Phone | | + + + | Preferred Language | Unknown | + + + | Marital Status | | + + + | Congregational Affiliation | SPI | + + + | Race | White | + + + | Ethnic Group | Not or | + + + Author + + + | Author | [facility] | + + + | Organization | [facility] | + + + | Address | Unknown | + + + | Phone | Unavailable | + + + Support + + +---------+ + | Name | Relationship | Address | Phone | + + +---------+ + | Gabriel Kelly | ECON | Unknown | | + + +---------+ + Care Team Providers + +------+ + | Care Cartoon Animator Name | Role | Phone | + [...] | | | | | achieved | [place], [place] | [facility] | | | | | remission | [address] | [place] | | | | | | Phone: | Asha | | | | | Procedures | [phone] | [place], [place] | | | | | Post BMT | Fax: | [address] | | | | | Auth to | [phone] | Phone: | | | | | included | | [phone] | | | | | facility, | | Fax: | | | | | diagnostics, | | [phone] | | | | | office | | | | | | | visits and | | | | | | | surgery | | | +--------+---------+ + + + + Encounter Details +--------+---------+ + + + | Date | Type | Department | Care Team | Description | +--------+---------+ + + + | 11/09/ | Office | Center for | Yari Garcia MD | 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 | Visit | 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) (HCC) | | | | Malignancies at | [address] | (Primary Dx) | | | | [facility] | [facility] [place] | | | | | [address] | [address] | | | | | [address] Mailcode: | [phone] | | | | | [facility] [place] | | | | | | [place], | | | | | | [place] [address] | | | | | | [phone] | | | +--------+---------+ + + + [...] + + + | Blood Pressure | 129/89 | 11/09/2016 10:22 AM | | | | | PDT | | + + + + + | Pulse | 71 | 11/09/2016 10:22 AM | | | | | PDT | | + + + + + | Temperature | 36.7 C (98 F) | 11/09/2016 10:22 AM | | | | | PDT | | + + + + + | Respiratory Rate | 19 | 11/09/2016 10:22 AM | | | | | PDT | | + + + + + | Oxygen Saturation | 98% | 11/09/2016 10:22 AM | | | | | PDT | | + + + + + | Inhaled Oxygen | - | - | | | Concentration | | | | + + + + + | Weight | 75.4 kg (166 lb 3.6 | 11/09/2016 10:22 AM | | | | oz) | PDT | | + + + + + | Height | - | - | | + + + + + | Body Mass Index | 20.78 | 10/18/2016 10:05 AM | | | | | PDT | | + + + + + documented in this encounter Patient Instructions Patient Instructions Alicia Stoner MA - 11/09/2016 9:55 AM PDTIt was nice to see you today . We are glad to see you are doing and feeling well. We will continue watching the changes i n your vision. Do look into getting glasses to help with visual acuity, this will help with some of the symptoms that we discussed. Please contact us with any changes in your bowel movements or if anything else changes. Ple ase makes you drink 1-2 liters a day especially if you are going to be active. You will follow up with Aspen Cummins on November 23 and we will check your tacrolimus level th , since you did not hold that today. We will also talk more about a prednisone taper next time you come in. We will set up your follow up visits here shortly. 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 He was evaluated at [facility]' ED on 06/[address] angiogram negative [...] acute myelomonocytic leukemia. He was referred to [facility] for further evaluation and man agement of his newly dx'd AML. Pt was admitted to [facility] on 05/26/15. Peripheral blood [...] CD34, variable CD56, variable CD117, and dim [id number] mickey; promonocyte immunophenotype (70% by flow): CD11b, [...] L total hip arthroplasty. He is currently 15 monthss/p transplant, s/p 6 cyclesof azacitidine and returns to [facility] today for scheduled follow-up. Interim History: Khurram returns to clinic and is feeling generally well. Cardiovascular endurance is increasing and he is able to hike/walk up hills without restriction currently. Continues to have intermittent light-headedness with standing. Blurry vision is stable- also relates to having "floating" sensation in head. Planning on moving back to [place] this summer. 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 Review of Systems Constitutional: Negative for chills, diaphoresis, fever and malaise/fatigue. HENT: Negative for headaches, congestion and sore throat. Eyes: Positive for blurred vision. Negative for double vision, photophobia and pain. Respiratory: Negative for cough and shortness of breath. Cardiovascular: Negative for chest pain and leg swelling. Gastrointestinal: Negative for abdominal pain, blood in stool, diarrhea, melena, nausea and vomiting. Genitourinary: Negative for dysuria and hematuria. Musculoskeletal: Negative for joint pain (no c/o hip pain, knee pain resolved) and myalgias . Skin: Rash: rash resolved. Neurological: Positive for sensory change and weakness. Negative for dizziness, tingling an d tremors. Psychiatric/Behavioral: Negative for depression. The patient is nervous/anxious. All other systems [...] this visit. No Known Allergies Filed Vitals: 11/09/2016 10:22 AM Weight: 75.4 kg (166 lb 3.6 oz) BP: 129/89 Pulse: 71 Temp: 36.7 C (98 F) TempSrc: Oral Resp: 19 SpO2: 98% PainSc: 0 - Zero BMI: 20.78 kg/(m^2) Physical Exam Constitutional: He is well-developed, well-nourished, and in no distress. No distress. Thin CM in NAD HENT: Head: Normocephalic and atraumatic. Mouth/Throat: Oropharynx is clear and moist. No oropharyngeal exudate. Eyes: Conjunctivae are normal. Pupils are equal, round, and reactive to light. Neck: Neck supple. Cardiovascular: Normal rate, regular rhythm, normal heart sounds and intact distal pulses. No murmur heard. Pulmonary/Chest: Effort normal and breath sounds normal. No respiratory distress. He has no wheezes. He has no rales. Abdominal: Soft. Bowel sounds are normal. He exhibits no distension. There is no tenderness . Musculoskeletal: He exhibits no edema. Lymphadenopathy: He has no cervical adenopathy. Neurological: He is alert. Skin: Skin is warm and dry. No rash noted. He is not diaphoretic. Psychiatric: Mood and affect normal. Vitals reviewed. Lab Results Component Value Date WBC 7.03 11/09/2016 HB 13.0 11/09/2016 HCT 38.6 11/09/2016 PLT 290 11/09/2016 MCV 96.0 11/09/2016 RDW 54.9 11/09/2016 Lab Results Component Value Date BICARB 28 11/09/2016 TBILI 0.3 11/09/2016 CA 9.6 11/09/2016 CL 102 11/09/2016 CR 0.72 11/09/2016 GLU 96 11/09/2016 AP 91 10/09/2016 TP 6.9 11/09/2016 BUN 10 11/09/2016 ALB 3.9 11/09/2016 AST 25 11/09/2016 NA 136 11/09/2016 K 4.1 11/09/2016 ALT 105 (H) 11/09/2016 Assessment/Plan: 1. 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 His most recent marrow studies completed 08/31/16 showed a normocellula r marrow (30%) with trilineage hematopoiesis, marrow eosinophilia (~15%) and <2% myeloid b lasts. Karyotype 46,XY[20]. VNTR showed no detectable host cells. 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 Peripheral blood counts WNL with no evidence of disease by peripheral smear. --> continue CBC q2-4 weeks and prn --> no additional marrow studies indicated providing peripheral counts remain stable 2. 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 He initially responded but flared during taper. He also developed low-level nausea and abd discomfort concerning for GvHD, emp irically treated with oral non-absorbables with resolution. - He had tapered prednisone to 10 mg po daily when he developed a rash for which he was see n in the ED in [place] in late 01/21. Prednisone was increased back [...] and mild GvHD of the rectum. - asymptomatic at this time aside from mild ocular irritation. GI upset markedly improved. Mild transaminitis. --> adjust tacrolimus to maintain a trough level of 4-8 --> continue mycophenolate ER 720 mg po BID and prednisone 20 mg po daily --> continue to f/u with ophthalmology per their recommendations --> hold off on getting prescription for glasses changed given prednisone taper and expecte d change in shape of lens 3. Infectious Disease: Afebrile without localizing s/s infection. He continues prophylacti c acyclovir and bactrim along wtih fluconazole 400 mg po daily for findings of esophageal ca ndidiasis His most recent immune reconstitution panel collected 08/31/16 showed normal total T cells with relative decrease in CD4+ margarita cells, normal total NK cells, normal total B cells with relative decrease in non-switched memory B cells and minimal immune activation. C D4 count 420. Over due for post-transplant vaccines --> continue prophylactic antimicrobials --> continue fluconazole through 11/12/16 to complete a 3 week course of therapy --> consider restarting post-transplant vaccines next visit if pt clinically stable 4. Fluid, Electrolyte and Nutrition: Appetite is much better over the last week. Eating we ll, no c/o N/V/D. Weight uptrending. His electrolytes are reviewed and are within acceptabl e limits. --> continue to eat well with several meals/snacks throughout the day --> maintain hydration with goal of 2L calorie containing fluids daily 5. Musculoskeletal: Hx of intermittent L hip [...] feels he's doing very well post-surgery. --> Ortho recommended f/u Lobo Jeffers MD in 1 year, sooner prn 6. Cardiovascular: Mild intermittent tachycardia persists, however intermittent palpitation s and lightheadedness resolved after restarting xanax. EKG 10/26/16 showed sinus tach with AP 106, o/w WNL. His electrolytes are reviewed and are within acceptable limits. --> if tachycardia persists, TTE with consideration for initiation of beta blockade 7. Psychosocial: Pt reports ongoing anxiety related to his dx and treatment. Has stated he's had a hard time moving forward with his life. Had been taking xanax with relief but sto pped in 09/22 without tapering. He attended an AYA support group twice. Initially just met on e other AYA survivor. The last time was a full support group but felt the meeting got off tr ack and was monopolized by one patient with minimal guidance from the farmworker diversified crops (not the alex farmworker diversified crops). He is willing to give it another try but thinks individual therapy may b e best for him. He has since restarted xanax 1 mg po TID with marked improvement in his sym ptoms. He is very excited to have been accepted to attend an AYA retreat in 12/23. He remains amenable to counseling but has not yet called to schedule an appt. --> continue to attend AYA support group as able --> continue xanax 1 mg po TID without additional dose adjustment --> retreat for young adult survivors coming up 7. 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
--- OUTSIDE RECORDS SUMMARY | ~2019-05-17 | XMS | Encounter Summary ---
Demographics + + + | Address | [address] | | | [place] [address] | + + + | Home Phone | | + + + | Preferred Language | Unknown | + + + | Marital Status | | + + + | Gnosticist Affiliation | SPI | + + + [...] Team Providers + +------+ + | Care Electrical Assembler Name | Role | Phone | + +------+ + | Pending Pcp Addition | PCP | Unavailable | + +------+ + Encounter Details +--------+ + + + + | Date | Type | Department | Care Team | Description | +--------+ + + + + | 07/21/ | Consulting Group Analyst | Center for | Yari Garcia MD | Acute myeloid | | 2016 | | Hematologic | [address] | leukemia (AML), M4 | | | | Malignancies at | [address] | (HCC) (Primary Dx) | | | | [address] | [place], [place] | | | | | [address] | [address] | | | | | [address] Mailcode: | [phone] | | | | | [facility] | | | | | | [place], | | | | | | [place] [address] | | | | | | [phone] | | | +--------+ + + + [...] Rd | | | | | | [place], [place] | | | | | | [address] | | | | | | [phone] | | | | | | | | +--------+---------+ + + + documented as of this encounter Visit Diagnoses + + | Diagnosis | + + | Acute myeloid leukemia (AML), M4 (HCC) - Primary | + + documented in this encounter"
--- OUTSIDE RECORDS SUMMARY | ~2019-05-17 | XMS | Encounter Summary ---
Demographics + + + | Address | [address] | | | [place] [address] | + + + | Home Phone | | + + + | Preferred Language | Unknown | + + + | Marital Status | | + + + | Oriental Orthodox Affiliation | SPI | + + + | Race | White | + + + | Ethnic Group | Not or | + + + Author + + + | Author | [facility] | + + + | Organization | [facility] | + + + | Address | Unknown | + + + | Phone | Unavailable | + + + Support + + +---------+ + | Name | Relationship | Address | Phone | + + +---------+ + | Gabriel Kelly | ECON | Unknown | | + + +---------+ + Care Team Providers + +------+ + | Care Wheel Setter Name | Role | Phone | + +------+ + | Zayda Hinton | PCP | | + +------+ + Reason for Visit +--------+ + | Reason | Comments | +--------+ + | Other | clarify order | +--------+ + Encounter Details +--------+ + + + + | Date | Type | Department | Care Team | Description | +--------+ + + + + | 01/25/ | Telephone | Center for | Aspen Cummins FNP | Other (clarify | | 2018 | | Hematologic | [address] | order) | | | | Malignancies at | [address] | | | | | [address] | [place], [place] | | | | | [address] [facility] | [address] | | | | | [facility] Mailcode: | [phone] | | | | | [facility] [place] | | | | | | [facility] [place], | | | | | | [place] [address] | | | | | | [phone] | | | +--------+ + + + [...] [address] | | | | | | [place] | | | | | | [address] | | | | | | [phone] | | | | | | | | +--------+---------+ + + + documented as of this encounter Visit Diagnoses Not on filedocumented in this encounter"
--- OUTSIDE RECORDS SUMMARY | ~2019-05-17 | XMS | Encounter Summary ---
Demographics + + + | Address | [address] | | | [place] [address] | + + + | Home Phone | | + + + | Preferred Language | Unknown | + + + | Marital Status | | + + + | Evangelical Affiliation | SPI | + + + [...] Team Providers + +------+ + | Care Pelletising Extruder Operator Name | Role | Phone | + +------+ + | Zayda Hinton | PCP | | + +------+ + Encounter Details +--------+ + + + + | Date | Type | Department | Care Team | Description | +--------+ + + + + | 10/17/ | Pharmacy | Specialty Pharmacy | | | | 2015 | Visit | Services [address] | | | | | [address] | | | | | | [place], [place] | | | | | | [address] | | | | | | [phone] | | | +--------+ + + + [...] 2019 | Visit | Malignancy | [address] [facility] [facility] | | | | | | [address] | | | | | | [place], [place] | | | | | | [address] | | | | | | [phone] | | | | | | | | +--------+---------+ + + + documented as of this encounter Visit Diagnoses Not on filedocumented in this encounter"
--- OUTSIDE RECORDS SUMMARY | ~2019-05-17 | XMS | Encounter Summary ---
Demographics + + + | Address | [address] | | | [place] [address] | + + + | Home Phone | | + + + | Preferred Language | Unknown | + + + | Marital Status | | + + + | Amish Affiliation | SPI | + + + | Race | White | + + + | Ethnic Group | Not or | + + + Author + + + | Author | [facility] | + + + | Organization | [facility] | + + + | Address | Unknown | + + + | Phone | Unavailable | + + + Support + + +---------+ + | Name | Relationship | Address | Phone | + + +---------+ + | Gabriel Kelly | ECON | Unknown | | + + +---------+ + Care Team Providers + +------+ + | Care Deckhand Clam Dredge Name | Role | Phone | + +------+ + | No Pcp Per Patient | PCP | Unavailable | + +------+ + Encounter Details +--------+ + + + + | Date | Type | Department | Care Team | Description | +--------+ + + + + | 04/02/ | Hospital | Diagnostic | Lobo Jeffers, | | | 2017 | Encounter | Radiology at [facility] | [address] | | | | | [address] | [address] | | | | | [address] Mailcode: | [place], [place] | | | | | [address] Physician's | [address] | | | | | [place], | [phone] | | | | | [place] [address] | | | | | | [phone] | | | +--------+ + + + [...] 2019 | Visit | Malignancy | [address] [facility] | | | | | | [address] | | | | | | [place], [place] | | | | | | [address] | | | | | | [phone] | | | | | | | | +--------+---------+ + + + documented as of this encounter Procedures + +--------+ + + + | Procedure Name | Priori | Date/Time | Associated Diagnosis | Comments | | | ty | | | | + +--------+ + + + | X-RAY HIPS BILAT 2 | Routin | 04/02/2017 | Arthralgia of hip, | Results for this | | VIEWS WITH AP PELVIS | e | 1:48 PM | unspecified | procedure are in the | | | | PDT | laterality | results section. | + +--------+ + + + documented in this encounter Results X-RAY HIPS BILAT 2 VIEWS WITH AP PELVIS (04/02/2017 1:48 PM PDT) + + | Specimen | + + | | + + + + + | Narrative | Performed At | + + + | STUDY: HIPS BILAT 2 VIEWS W AP PELV HISTORY: Hip | [facility] | | arthroplasty. COMPARISON: 03/15/2017 11:11:13 AM FINDINGS: | RADIOLOGY VOICE | | The left total hip arthroplasty is in satisfactory alignment. | RECOGNITION | | There is no periprosthetic fracture, breakage, loosening, or other | | | failure. Right femoral head osteonecrosis is unchanged, without | | | significant subchondral collapse. The right hip joint space is | | | maintained. The sacroiliac joints are maintained. The symphysis | | | pubis is maintained. Vascular calcifications are noted. | | | IMPRESSION: Intact left hip arthroplasty. Unchange right hip | | | osteonecrosis. I have personally reviewed the images and, if | | | necessary, edited the report. I agree with the report as now | | | presented. | | + + + + + | Procedure Note | + + | Service Account, Radiant Res In Interface - 04/02/2017 2:08 PM PDT STUDY: HIPS BILAT | | 2 VIEWS W AP PELV HISTORY: Hip arthroplasty.COMPARISON: 03/15/2017 11:11:13 | | AMFINDINGS: The left total hip arthroplasty is in satisfactory alignment. There is no | | periprosthetic fracture, breakage, loosening, or other failure. Right femoral head | | osteonecrosis is unchanged, without significant subchondral collapse. The right hip | | joint space is maintained. The sacroiliac joints are maintained. The symphysis pubis is | | maintained. Vascular calcifications are noted. IMPRESSION: Intact left hip | | arthroplasty.Unchange right hip osteonecrosis.I have personally reviewed the images and, | | if necessary, edited the report. I agree with the report as now presented. | |collapse. The right hip joint space is maintained. The sacroiliac joints are maintained. T he symphysis pubis is maintained. Vascular calcifications are noted. | | | |IMPRESSION: | | | |Intact left hip arthroplasty. | | | |Unchange right hip osteonecrosis. | | | | | |I have [...] + | Diagnosis | + + | Arthralgia of hip, unspecified laterality | + + documented in this encounter"
--- OUTSIDE RECORDS SUMMARY | ~2019-05-17 | XMS | Encounter Summary ---
Demographics + + + | Address | [address] | | | [place] [address] | + + + | Home Phone | | + + + | Preferred Language | Unknown | + + + | Marital Status | | + + + | Congregation Affiliation | SPI | + + + | Race | White | + + + | Ethnic Group | Not or | + + + Author + + + | Author | [facility] | + + + | Organization | [facility] | + + + | Address | Unknown | + + + | Phone | Unavailable | + + + Support + + +---------+ + | Name | Relationship | Address | Phone | + + +---------+ + | Gabriel Kelly | ECON | Unknown | | + + +---------+ + Care Team Providers + +------+ + | Care Pull Up Hand Name | Role | Phone | + +------+ + | Zayda Hinton | PCP | | + +------+ + Encounter Details +--------+ + + + + | Date | Type | Department | Care Team | Description | +--------+ + + + + | 07/08/ | Pharmacy | Specialty Pharmacy | | | | 2014 | Visit | Services [address] | | | | | | [address] | | | | | | [place], [place] | | | | | | [address] | | | | | | [phone] | | | +--------+ + + + [...] [place] | | | | | | [address] | | | | | | [phone] | | | | | | | | +--------+---------+ + + + documented as of this encounter Visit Diagnoses Not on filedocumented in this encounter"
--- OUTSIDE RECORDS SUMMARY | ~2019-05-17 | XMS | Encounter Summary ---
Demographics + + + | Address | [address] | | | [place] [address] | + + + | Home Phone [...] Team Providers + +------+ + | Care Starchmaker Name | Role | Phone | + +------+ + | Zayda Hinton | PCP | | + +------+ + Reason for Visit +--------+ + | Reason | Comments | +--------+ + | Other | decreased appetite, wierd since of well being, feeling uneasy, | | | occ unequalibrium, feeling anxiety. | +--------+ + Encounter Details +--------+ + + + + | Date | Type | Department | Care Team | Description | +--------+ + + + + | 12/05/ | Telephone | Center for | Aspen Cummins FNP | Other (decreased | | 2018 | | Hematologic | [address] [facility] | fidencio garcia | | | | Malignancies at | [address] | since of well being, | | | | [facility] | [place], [place] | feeling uneasy, occ | | | | [address] | [address] | unequalibrium, | | | | [address] Mailcode: | [phone] | feeling anxiety.) | | | | [facility] | | | | | | [facility] [place], | | | | | | [place] [address] | | | | | | [phone] | | | +--------+ + + + [...] 2018 | Visit | Malignancy | [address] [facility] | | | | | | [address] | | | | | | [place], [place] | | | | | | [address] | | | | | | [phone] | | | | | | | | +--------+---------+ + + + documented as of this encounter Visit Diagnoses Not on filedocumented in this encounter"
--- OUTSIDE RECORDS SUMMARY | ~2019-05-17 | XMS | Encounter Summary ---
Demographics + + + | Address | [address] | | | [place] [address] | + + + | Home Phone | | + + + | Preferred Language | Unknown | + + + | Marital Status | | + + + | Cheondoism Affiliation | SPI | + + + | Race | White | + + + | Ethnic Group | Not or | + + + Author + + + | Author | [facility] | + + + | Organization | [facility] | + + + | Address | Unknown | + + + | Phone | Unavailable | + + + Support + + +---------+ + | Name | Relationship | Address | Phone | + + +---------+ + | Gabriel Kelly | ECON | Unknown | | + + +---------+ + Care Team Providers + +------+ + | Care Patient Assessment Coordinator Name | Role | Phone | + +------+ + | Zayda Hinton | PCP | | + +------+ + Encounter Details +--------+ + + + + | Date | Type | Department | Care Team | Description | +--------+ + + + + | 12/19/ | Procedure | 6A [facility] | | | | 2019 | Pass | [facility] | | | | | | Admitting Desk | | | | | | Located on the 9 | | | | | | floor [address] | | | | | | [address] | | | | | | [place], [place] | | | | | | [address] | | | +--------+ + + + [...] 2019 | Visit | Malignancy | [address] [facility] | | | | | | [address] | | | | | | [place], [place] | | | | | | [address] | | | | | | [phone] | | | | | | | | +--------+---------+ + + + documented as of this encounter Visit Diagnoses Not on filedocumented in this encounter"
--- OUTSIDE RECORDS SUMMARY | ~2019-05-17 | XMS | Encounter Summary ---
Demographics + + + | Address | [address] | | | [place] [address] | + + + | Home Phone | | + + + | Preferred Language | Unknown | + + + | Marital Status | | + + + | Scientology Affiliation | SPI | + + + | Race | White | + + + | Ethnic Group | Not or | + + + Author + + + | Author | [facility] | + + + | Organization | [facility] | + + + | Address | Unknown | + + + | Phone | Unavailable | + + + Support + + +---------+ + | Name | Relationship | Address | Phone | + + +---------+ + | Gabriel Kelly | ECON | Unknown | | + + +---------+ + Care Team Providers + +------+ + | Care Bass Fisher Name | Role | Phone | + [...] Description | +--------+--------+ + + + | 08/06/ | Refill | Center for | [facility] FNP | Refill Request | | 2018 | | Hematologic | [address] | | | | | Malignancies at | [facility] | | | | | [place] [address] | [place], [place] | | | | | [address] [facility] | [address] | | | | | [facility] Mailcode: | [phone] | | | | | [id number] [place] | | | | | | [facility] [place], | | | | | | [place] [address] | | | | | | [phone] | | | +--------+--------+ + + + [...] 2019 | Visit | Malignancy | [address] [facility] [address] | | | | | | [address] | | | | | | [place] | | | | | | [address] | | | | | | [phone] | | | | | | | | +--------+---------+ + + + documented as of this encounter Visit Diagnoses Not on filedocumented in this encounter"
--- OUTSIDE RECORDS SUMMARY | ~2019-05-17 | XMS | Encounter Summary ---
Demographics + + + | Address | [address] | | | [place] [address] | + + + | Home Phone [...] Team Providers + +------+ + | Care Redrawer Name | Role | Phone | + [...] | +--------+ + + + + | 10/25/ | Diagnostic | Center for | | Lab Draw | | 2017 | Visit | Hematologic | | | | | | Malignancies at | | | | | | [facility] | | | | | | [address] | | | | | | Debi Burger Mailcode: | | | | | | [id number] [place] | | | | | | [place], | | | | | | [place] [address] | | | | | | [phone] | | | +--------+ + + + [...] of this encounter Progress Lincoln Austin - 10/25/2017 12:00 PM PDTVenipuncture performed in clinic. Sample obtained f elly right AC. Patient tolerated the procedure well. Lincoln Hermosillo MA documented in this encount [...] 2019 | Visit | Malignancy | [address] | | | | | | [address] | | | | | | [place], [place] | | | | | | [address] | | | | | | [phone] | | | | | | | | +--------+---------+ + + + documented as of this encounter Procedures + +--------+ + + + | Procedure Name | Priori | Date/Time | Associated Diagnosis | Comments | | | ty | | | | + +--------+ + + + | CMP, POC (BMP+LFT) | Routin | 10/25/2017 | Immunocompromised | Results for this | | | e | 12:26 PM | state associated | procedure are in the | | | | PDT | with stem cell | results section. | | | | | transplant (HCC) | | + +--------+ + + + | CBC+DIFF,POC | Routin | 10/25/2017 | Immunocompromised | Results for this | | | e | 12:22 PM | state associated | procedure are in the | | | | PDT | with stem cell | results section. | | | | | transplant (HCC) | | + +--------+ + + + documented in this encounter Results CMP, POC (BMP+LFT) (10/25/2017 12:26 PM PDT) + +---------+ + + + | Component | Value | Ref Range | Performed | Pathologist | | | | | At | Signature | + +---------+ + + + | SODIUM, POC | 136 | 134 - 143 | [facility] - | | | | | mmol/L | [facility] | | | | | | [facility] | | | | | | OF CARE | | | | | | TESTS | | + +---------+ + + + | POTASSIUM, | 4.1 | 3.4 - 5.0 | [facility] - | | | POC | | mmol/L | [facility] | | | | | | [facility] | | | | | | OF CARE | | | | | | TESTS | | + +---------+ + + + | TOTAL CO2, | 27 | 22 - 29 mmol/L | [facility] - | | | POC | | | [facility] | | | | | | [facility] | | | | | | OF CARE | | | | | | TESTS | | + +---------+ + + + | CHLORIDE, | 100 | 97 - 108 mmol/L | [facility] [...] + + + | BUN, POC | 7 | 6 - 20 mg/dL | [facility] [...] + + + | ALK PHOS, | 84 | 41 - 99 U/L | [facility] - | | | CMP POC | | | [facility] | | | | | | [facility] | | | | | | OF CARE | | | | | | TESTS | | + +---------+ + + + | ALT, CMP | 29 | 0 - 60 U/L | [facility] - | | | POC | | | [facility] | | | | | | [facility], POINT | | | | | | OF CARE | | | | | | TESTS | | + +---------+ + + + | AST, CMP | 34 | 0 - 41 U/L | [facility] [...] +---------+ + + + | PROTEIN | 7.5 | 6.1 - 7.9 g/dL | [facility] [...] [facility] | [address] | [place], [place] | | | [facility] OF CARE | [address] | [address] | | | TESTS | | | | + + + + + CBC+DIFF,POC (10/25/2017 12:22 PM PDT) + + + + + + | Component | Value | Ref Range | Performed | Pathologist | | | | | At | Signature | + + + + + + | WBC POC | 9.6 | 3.5 - 10.8 | [facility] - | | | | | 10*3/uL | [facility] | | | | | | [facility] | | | | | | OF CARE | | | | | | TESTS | | + + + + + + | RBC POC | 4.69 | 4.50 - 6.00 | [facility] - | | | | | 10*6/uL | [facility] | | | | | | [facility] | | | | | | OF CARE | | | | | | TESTS | | + + + + + + | HGB POC | 14.4 | 13.5 - 17.5 | [facility] - | | | | | g/dL | [facility] | | | | | | [facility] | | | | | | OF CARE | | | | | | TESTS | | + + + + + + | HCT POC | 43.8 | 41.0 - 53.0 % | [facility] - | | | | | | [facility] | | | | | | [facility] | | | | | | OF CARE | | | | | | TESTS | | + + + + + + | MCV POC | 93.4 | 80.0 - 96.0 fL | [facility] - | | | | | | [facility] | | | | | | [facility] | | | | | | OF CARE | | | | | | TESTS | | + + + + + + | MCH POC | 30.7 | 28.5 - 32.3 pg | [facility] - | | | | | | [facility] | | | | | | [facility] | | | | | | OF CARE | | | | | | TESTS | | + + + + + + | MCHC POC | 32.9 | 33.0 - 35.5 | [facility] - | | | | | g/dL | [facility] | | | | | | [facility] | | | | | | OF CARE | | | | | | TESTS | | + + + + + + | RDW SD, POC | 46.0 | 35.1 - 46.3 fL | [facility] - | | | | | | [facility] | | | | | | [facility] | | | | | | OF CARE | | | | | | TESTS | | + + + + + + | PLT POC | 281 | 150 - 400 | [facility] - | | | | | 10*3/uL | [facility] | | | | | | [facility] | | | | | | OF CARE | | | | | | TESTS | | + + + + + + | MPV POC | 8.1 (L) | 9.7 - 12.3 fL | [facility] - | | | | | | [facility] | | | | | | [facility] | | | | | | OF CARE | | | | | | TESTS | | + + + + + + | NEUTROPHIL% | 71.6 (H) | 50.0 - 70.0 % | [facility] - | | | POC | | | [facility] | | | | | | [facility] POINT | | | | | | OF CARE | | | | | | TESTS | | + + + + + + | LYMPH% POC | 22.8 | 18 - 42 % | [facility] - | | | | | | [facility] | | | | | | [facility] | | | | | | OF CARE | | | | | | TESTS | | + + + + + + | MONO %, POC | 4.7 | 3.5 - 9.0 % | [facility] - | | | | | | [facility] | | | | | | [facility] | | | | | | OF CARE | | | | | | TESTS | | + + + + + + | EOS %, POC | 0.7 (L) | 1.0 - 3.0 % | [...] + + + + | NEUTROPHIL# | 6.9 | 1.8 - 7.7 | [facility] - | | | POC | | 10*3/uL | [facility] | | | | | | [facility], POINT | | | | | | OF CARE | | | | | | TESTS | | + + + + + + | LYMPH# POC | 2.2 | 1.0 - 4.8 | [facility] - [...] [facility] | 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
--- OUTSIDE RECORDS SUMMARY | ~2019-05-17 | XMS | Encounter Summary ---
Demographics + + + | Address | [address] | | | [place] [address] | + + + | Home Phone [...] Providers + +------+ + | Care Electrical Engineering Professor Name | Role | Phone | + +------+ + | Pending Pcp Addition | PCP | Unavailable | + +------+ + Reason for Visit + + + | Reason | Comments | + + + | Schedule labs | trifusion | + + + | Follow-up visit | JULIANA Jimenez | + + + | Intravenous infusion | magnesium | + + + | Biopsy | bone marrow biopsy | + + + | Medication | morphine IV | + + + Office Visit - [...] | | | | | achieved | [place], [place] | [id number] | | | | | remission | [address] | [place] | | | | | | Phone: | Pavilion | | | | | Procedures | [phone] | [place], [place] | | | | | Post BMT | Fax: | [address] | | | | | Auth to | [phone] | Phone: | | | | | included | | [phone] | | | | | facility, | | Fax: | | | | | diagnostics, | | [phone] | | | | | office | | | | | | | visits and | | | | | | | surgery | | | +--------+---------+ + + + + Encounter Details +--------+ + + + + | Date | Type | Department | Care Team | Description | +--------+ + + + + | 09/26/ | Clinical | Center for | | Schedule labs | | 2016 | Support | Hematologic | | (trifusion); | | | Staff | Malignancies at [facility] | | Follow-up visit | | | | [address] | | (JULIANA Jimenez); | | | | [place] [place] Mailcode: | | Intravenous infusion | | | | [facility] [place] | | (magnesium); Biopsy | | | | [place], | | (bone marrow biopsy | | | | [place] [address] | | ); Medication | | | | [phone] | | (morphine IV) | +--------+ + + + + Social [...] + + + | Blood Pressure | - | - | | + + + + + | Pulse | - | - | | + + + + + | Temperature | - | - | | + + + + + | Respiratory Rate | - | - | | + + + + + | Oxygen Saturation | - | - | | + + + + + | Inhaled Oxygen | - | - | | | Concentration | | | | + + + + + | Weight | 75.6 kg (166 lb 10.7 | 09/27/2015 12:41 PM | | | | oz) | PDT | | + + + + + | Height | - | - | | + + + + + | Body Mass Index | 21.54 | 08/18/2015 4:35 PM | | | | | PST | | + + + + + documented in this encounter Progress Notes Pricilla Guy RN - 09/27/2015 3:41 PM PDTFormatting of this note might be different f rom the original. INFUSION/TRANSFUSION NURSING NOTE Name: Khurram Kelly Date: 09/27/2015 Provider: Yari Garcia MD/ JULINAA Jimenez Subjective: Patient arrived ambulatory to clinic with spouse. 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 Patient reports feeling well today. No complaints. Denies any fever, dizziness, sob, pain, n /v/d, urinary issues, rash, and bleeding. Patient states food is starting to taste a little better and has been able to eat more. Reports drinking at least 2 L of fluids daily. Patient here today for labs, possible infusion, OV with JULIANA Jimenez and bone marrow biopsy. Past illnesses: Khurram has a past medical [...] Ulcerative colitis (HCC), Encounter for extracorporeal dialysis (HCC), Kidney stones, UTI (urinary tract infection), Type [...] ified, or At risk for colon cancer. VAD Lab Draw: Trifusion accessed per protocol. Good blood return noted. Appropriate waste discarded. L abs drawn and sent. Trifusion pulse flushed with 20 mL NS. Patient scheduled for provider visit today with JULIANA Jimenez. CBC with diff last 72 hours (or 3 results) Recent Labs 09/27/15 1105 WBC 9.9 HB 10.2* HCT 30.0* PLT 141* MONOPERC 15.8* BASOPERC 1.2 EOSPERC 3.1* Chemistries: Last 72 Hours (or 3 results): Recent Labs 09/27/15 0918 09/27/15 1004 NA -- 138 K -- 3.8 CL -- 101 BICARB -- 29 BUN -- 16 CR -- 0.7 GLU -- 104* CA -- 9.3 MG -- 1.4* PO4 3.7 -- Magnesium: Magnesium Sulfate 4 gm in 100 mL NS infused over 2 hours per supportive care orders for a m agnesium level of 1.4. For infusion details, see SEP. Bone Marrow Biopsy: Patient premedicated with 3 mg IV Morphine per JULIANA Jimenez orders. Bone marrow biopsy completed. Continuous pulse oximetry monitoring performed by NEDA throughout procedure. CVC flushed per protocol with 5 mL of 10 units/mL Heparin. Patient observed for 15 minutes pos t-procedure. Bone Marrow biopsy dressing dry and intact. [...] Lines & Transfusions doc flow sheet. Patient reports feeling well. No complaints at this time. Patient discharged home ambulator y with spouse. Pricilla Guy, RN documented in this encounter Plan of [...] 2018 | Visit | Malignancy | [address] [facility] | | | | | | [address] | | | | | | [place], [place] | | | | | | [address] | | | | | | [phone] | | | | | | | | +--------+---------+ + + + documented as of this encounter Procedures + +--------+ + + + | Procedure Name | Priori | Date/Time | Associated Diagnosis | Comments | | | ty | | | | + +--------+ + + + | CBC+DIFF,POC | Urgent | 09/27/2015 | Acute myeloid | Results for this | | | | 11:05 AM | leukemia (AML), M4 | procedure are in the | | | | PDT | ([facility])- primary | results section. 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 | | | | | | (HCC) | | + +--------+ + + + | TREATMENT PARAMETERS | Routin | 09/27/2015 | 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 | 10:49 AM | leukemia (AML), M4 | | | | | PDT | ([facility])- primary | | | | | | induction failure | | + +--------+ + + + | TREATMENT PARAMETERS | Routin | 09/27/2015 | 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 | 10:49 AM | leukemia (AML), M4 | | | | | PDT | ([facility])- primary | | | | | | induction failure | | + +--------+ + + + | TREATMENT PARAMETERS | Routin | 09/27/2015 | 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 | 10:49 AM | leukemia (AML), 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 | | | | | | induction failure | | + +--------+ + + + | TREATMENT PARAMETERS | Routin | 09/27/2015 | 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 | 10:49 AM | leukemia (AML), 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 | | | | | | induction failure | | + +--------+ + + + | TREATMENT PARAMETERS | Routin | 09/27/2015 | 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 | 10:49 AM | leukemia (AML), 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 | | | | | | induction failure | | + +--------+ + + + | NURSING | Routin | 09/27/2015 | Acute myeloid | | | COMMUNICATION #3 - | e | 10:49 AM | leukemia (AML), M4 | | | [place] | | PDT | ([facility])- primary | | | | | | induction failure | | + +--------+ + + + | NURSING | Routin | 09/27/2015 | Acute myeloid | | | COMMUNICATION #2 - | e | 10:49 AM | leukemia (AML), M4 | | | [place] | | PDT | ([facility])- primary | | | | | | induction failure | | + +--------+ + + + | NURSING | Routin | 09/27/2015 | Acute myeloid | | | COMMUNICATION #1 - | e | 10:49 AM | leukemia (AML), M4 | | | [place] | | PDT | ([facility])- primary | | | | | | induction failure | | + +--------+ + + + | TREATMENT PARAMETERS | Routin | 09/27/2015 | Acute myeloid | | | #1 - [place] | e | 10:49 AM | leukemia (AML), M4 | | | | | PDT | ([facility])- primary | | | | | | induction failure | | + +--------+ + + + | TREATMENT PARAMETERS | Routin | 09/27/2015 | Acute myeloid | | | #1 - [place] | e | 10:49 AM | leukemia (AML), M4 | | | | | PDT | ([facility])- primary | | | | | | induction failure | | + +--------+ + + + | BMP + MAG, POC CHM | Urgent | 09/27/2015 | Acute myeloid | Results for this | | | | 10:04 AM | leukemia (AML), M4 | procedure are in the | | | | PDT | ([facility])- primary | results section. 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 | | | | | | ([facility]) | | + +--------+ + + + | CMV PCR | Urgent | 09/27/2015 | Acute myeloid | Results for this | | QUANTITATION, PLASMA | | 9:18 AM | leukemia (AML), M4 | procedure are in the | | | | PDT | ([facility])- primary | results section. 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 | | | | | | (HCC) | | + +--------+ + + + | LIVER SET | Urgent | 09/27/2015 | Acute myeloid | Results for this | | (AST,ALT,BILI | | 9:18 AM | leukemia (AML), M4 | procedure are in the | | TOTAL,BILI | | PDT | ([facility])- primary | results section. | | DIRECT,ALK | | | induction failure | | | PHOS,ALB,PROT TOTAL) | | | S/P allogeneic bone | | | | | | marrow transplant | | | | | | (HCC) | | + +--------+ + + + | TACROLIMUS, WHOLE | Urgent | 09/27/2015 | Acute myeloid | Results for this | | BLOOD | | 9:18 AM | leukemia (AML), M4 | procedure are in the | | | | PDT | ([facility])- primary | results section. 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 | | | | | | (HCC) | | + +--------+ + + + | PHOSPHORUS, PLASMA | Urgent | 09/27/2015 | Acute myeloid | Results for this | | | | 9:18 AM | leukemia (AML), M4 | procedure are in the | | | | PDT | ([facility])- primary | results section. 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 | | | | | | (HCC) | | + +--------+ + + + | ASPERGILLUS | Urgent | 09/27/2015 | Acute myeloid | Results for this | | GALACTOMANNAN | | 9:18 AM | leukemia (AML), M4 | procedure are in the | | ANTIGEN, SERUM | | PDT | ([facility])- primary | results section. 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 | | | | | | (HCC) | | + +--------+ + + + documented in this encounter Results CBC+DIFFPOC (09/27/2015 11:05 AM PDT) + + + + + + | Component | Value | Ref Range | Performed | Pathologist | | | | | At | Signature | + + + + + + | WBC POC | 9.9 | 4.4 - 11.0 | [facility] - | | | | | 10*3/uL | [facility] | | | | | | [facility], POINT | | | | | | OF CARE | | | | | | TESTS | | + + + + + + | RBC POC | 3.36 (L) | 4.50 - 6.00 | [facility] - | | | | | 10*6/uL | [facility] | | | | | | [facility] POINT | | | | | | OF CARE | | | | | | TESTS | | + + + + + + | HGB POC | 10.2 (L) | 13.5 - 17.5 | [facility] - | | | | | g/dL | [facility] | | | | | | [facility] POINT | | | | | | OF CARE | | | | | | TESTS | | + + + + + + | HCT POC | 30.0 (L) | 41.0 - 53.0 % | [facility] - | | | | | | [facility] | | | | | | [facility] POINT | | | | | | OF CARE | | | | | | TESTS | | + + + + + + | MCV POC | 89.3 | 80.0 - 96.0 fL | [facility] - | | | | | | [facility] | | | | | | [facility] POINT | | | | | | OF CARE | | | | | | TESTS | | + + + + + + | MCH POC | 30.4 | 28.5 - 32.3 pg | [facility] [...] + + | RDW SD, POC | 50.0 (H) | 35.1 - 46.3 fL | [facility] - | | | | | | [facility] | | | | | | [facility] POINT | | | | | | OF CARE | | | | | | TESTS | | + + + + + + | PLT POC | 141 (L) | 150 - 400 | [facility] [...] + + + + | NEUTROPHIL% | 69.9 | 50.0 - 70.0 % | [facility] [...] + + | MONO %, POC | 15.8 (H) | 3.5 - 9.0 % | [...] + + | BASO %, POC | 1.2 | 0.0 - 2.0 % | [facility] [...] + + | LYMPH# POC | 1.0 (L) | 1.0 - 4.8 | [facility] - | | | | | 10*3/uL | [facility] | | | | | | [facility], POINT | | | | | | OF CARE | | | | | | TESTS | | + + + + + + | MONO #, POC | 1.6 (H) | 0.1 - 0.9 | [facility] [...] [facility] | | | | | | [facility] [...] [place] | [address] | [place], [place] | | | [facility] POINT OF CARE | [address] | [address] | | | TESTS | | | | + + + + + BMP PLUS, POC CHM (09/27/2015 10:04 AM PDT) + +---------+ + + + [...] +---------+ + + + | POTASSIUM, | 3.8 | 3.4 - 5.0 | [facility] - [...] + + + | LDH, POC | 220 (H) | 0 - 206 U/L | [facility] - | | | | | | [facility] | | | | | | [facility] | | | | | | OF CARE | | | | | | TESTS | | + +---------+ + + + | MAGNESIUM, | 1.4 (L) | 1.8 - 2.5 mg/dL | [...] [facility] | [address] | [place], [place] | | | RUTHIE CARTER OF CARE | [address] | [address] | | | TESTS | | | | + + + + + TACROLIMUS, WHOLE BLOOD (09/27/2015 9:18 AM PDT) + +-------+ + + + | Component | Value | Ref Range | Performed | Pathologist | | | | | At | Signature | + +-------+ + + + | TACROLIMUS | 7.7 | 5.0 - 15.0 | [facility] | [...] | + + + + + | [facility] | [address] | [place] [address] | | | SERVICES, SPECIAL | [address] | | | | IMM + COAG | | | | + + + + + LIVER SET (AST,ALT,BILI TOTAL,BILI DIRECT,ALK PHOS,ALB,PROT TOTAL) (09/27/2015 9:18 AM PDT ) + +---------+ + + [...] + + + | ALK PHOS | 73 | 53 - 128 U/L | [facility] | | | | | | LABORATORY | | | | | | SERVICES, | | | | | | CORE | | + +---------+ + + + | AST(SGOT) | 15 | <=41 U/L | [facility] | | | | | | LABORATORY | | | | | | SERVICES, | | | | | | CORE | | + +---------+ + + + | ALT (SGPT) | 63 (H) | <=60 U/L | [facility] | [...] [facility] | [address] | [place] [address] | | | SERVICES, CORE | [address] | | | + + + + + PHOSPHORUS, PLASMA (09/27/2015 9:18 AM PDT) + +-------+ + + + | Component | Value | Ref Range | Performed | Pathologist | | | | | At | Signature | + +-------+ + + + | PHOSPHORUS, | 3.7 | 2.4 - 4.7 mg/dL | [facility] [...] | + + + + + | [facility] | [address] | [place] [address] | | | SERVICES, CORE | [address] | | | + + + + + CMV PCR QUANTITATION, PLASMA (09/27/2015 9:18 AM PDT) + + + + + [...] 2 fold may not reflect true | [facility] | | biological changes and must be [...] | | | characteristics determined by the [facility] | | | [facility]. It has not been cleared or approved by | | | the Food and Drug Administration. FDA approval is not required for | | | clinical use of this test, and therefore validation was done as | | | required under the requirements of the Clinical Laboratory Improvement | | | Act of 1988. The [facility] | | | Diagnostic Center is a fully licensed and/or accredited clinical | | | laboratory under CLIA, CAP, and the [facility]. | | + + + + + + + + | Performing | Address | City/State[facility] | Phone Number | | Organization | | | | + + + + + | [facility] | [address] | [place] [address] | | | DIAGNOSTIC | [address] | | | | LABORATORIES | | | | + + + + + ASPERGILLUS GALACTOMANNAN ANTIGEN, SERUM (09/27/2015 9:18 AM PDT) + + + + + [...] + + + | ASP GAL | 0.24 | <=0.49 Index | [facility] | | [...] INTERPRETATION: Aspergillus galactomannan Antigen by EIA | [facility] | | | LABORATORY | | This [...] | + + + + + | [facility] | [address] | [place] [address] | | | SERVICES, SPECIAL | PARK [...] | | | + +---------+ +------+------+------+ | magnesium sulfate in water IV | New Bag | 09/27/19 | 4 g | | | | (RTU) 4 g 4 g, intravenous, | | 16 11:35 | | | | | ONCE, 1 dose, 09/27/15 at 1130 | | AM PDT | | | | + +---------+ +------+------+------+ +---+---+ | | | +---+---+ + +---------+ +------+---+---+ | morphine injection 3 mg 3 mg, | New Bag | 09/27/19 | 3 mg | | | | intravenous, ONCE, 1 dose, Mon | | 16 2:10 | | | | | 09/27/15 at 1400 | | PM PDT | | | | + +---------+ +------+---+---+ +---+---+ | | | +---+---+ documented in this encounter"
--- OUTSIDE RECORDS SUMMARY | ~2019-05-17 | XMS | Encounter Summary ---
Demographics + + + | Address | [address] | | | [place] [address] | + + + | Home Phone | | + + + | Preferred Language | Unknown | + + + | Marital Status | | + + + | Yarsanism Affiliation | SPI | + + + [...] Team Providers + +------+ + | Care Side Seam Envelope Machine Operator Name | Role | Phone [...] Description | +--------+--------+ + + + | 03/05/ | Refill | Center for | Yari Garcia MD | Refill Request | | 2017 | | Hematologic | [address] [facility] | | | | | Malignancies at | [address] | | | | | [place] | [place], [place] | | | | | [address] | [address] | | | | | [address] [place] Mailcode: | [phone] | | | | | [facility] | | | | | | [place], | | | | | | [place] [address] | | | | | | [phone] | | | +--------+--------+ + + + [...] | | | | | | [place] | | | | | | [address] | | | | | | [phone] | | | | | | | | +--------+---------+ + + + documented as of this encounter Visit Diagnoses Not on filedocumented in this encounter"
--- OUTSIDE RECORDS SUMMARY | ~2019-05-17 | XMS | Encounter Summary ---
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 | Phone | + +------+ + | Pending Pcp Addition | PCP | Unavailable | + +------+ + Encounter Details +--------+ + + + + | Date | Type | Department | Care Team | Description | +--------+ + + + + | 07/15/ | MyChart | Center for | Yari Garcia MD | today's labs and the | | 2016 | Encounter | Hematologic | [address] | dentist | | | | Malignancies at | [address] | | | | | [place] | [place], [place] | | | | | [address] | [address] | | | | | [address] Mailcode: | [phone] | | | | | [facility] | | | | | | [place], | | | | | | [place] [address] | | | | | | [phone] | | | +--------+ + + + [...] 2018 | Visit | Malignancy | [address] [facility] | | | | | | [address] | | | | | | [place], [place] | | | | | | [address] | | | | | | [phone] | | | | | | | | +--------+---------+ + + + documented as of this encounter Visit Diagnoses Not on filedocumented in this encounter"
--- OUTSIDE RECORDS SUMMARY | ~2019-05-17 | XMS | Encounter Summary ---
Demographics + + + | Address | [address] | | | [place] [address] | + + + | Home Phone | | + + + | Preferred Language | Unknown | + + + | Marital Status | | + + + | Mandaen Affiliation | SPI | + + + | Race | White | + + + | Ethnic Group | Not or | + + + Author + + + | Author | [facility] | + + + | Organization | [facility] | + + + | Address | Unknown | + + + | Phone | Unavailable | + + + Support + + +---------+ + | Name | Relationship | Address | Phone | + + +---------+ + | Gabriel Kelly | ECON | Unknown | | + + +---------+ + Care Team Providers + +------+ + | Care Change Management Consultant Name | Role | Phone | + +------+ + | Pending Pcp Addition | PCP | Unavailable | + +------+ + Reason for Visit + + + | Reason | Comments | + + + | Lab Draw | PICC | + + + | Chemotherapy | Decitibine | + + + Chemotherapy (Routine) +--------+--------+ [...] [address] | | | | | [place] | | [address] | | | | | [address] | | [address], | | | | | INJECTION, [address] | | [place] | | | | | [place] | | [address] | | | | | CH[facility],IV | | Phone: | | | | | INFSN,1 HR | | [phone] | | | | | [place] [facility] | | Fax: | | | | | INFSN,ADDL | | [phone] | | | | | [place] | | | +--------+--------+ + + + + Encounter Details +--------+ + + + + | Date | Type | Department | Care Team | Description | +--------+ + + + + | 07/27/ | Clinical | Center for | | Lab Draw (PICC); | | 2015 | Support | Hematologic | | Chemotherapy | | | Staff | Malignancies at [facility] | | (Decitibine) | | | | [address] | | | | | | [place] Mailcode: | | | | | | [facility] [address] | | | | | | [place], | | | | | | [place] [address] | | | | | | [phone] | | | +--------+ + + + [...] + + + | Blood Pressure | 130/89 | 07/27/2015 3:41 PM | | | | | PST | | + + + + + | Pulse | 95 | 07/27/2015 3:41 PM | | | | | PST | | + + + + + | Temperature | 37.2 C (98.9 F) | 07/27/2015 3:41 PM | | | | | PST | | + + + + + | Respiratory Rate | 16 | 07/27/2015 3:41 PM | | | | | PST | | + + + + + | Oxygen Saturation | 100% | 07/27/2015 3:41 PM | | | | | PST | | + + + + + | Inhaled Oxygen | - | - | | | Concentration | | | | + + + + + | Weight | 81 kg (178 lb 9.2 | 07/27/2015 3:41 PM | | | | oz) | PST | | + + + + + | Height | - | - | | + + + + + | Body Mass Index | 22.62 | 07/15/2015 1:57 PM | | | | | PST | | + + + + + documented in this encounter Progress Notes Maryan Delarosa RN - 07/27/2015 5:25 PM PSTFormatting of this note might be different fr om the original. Chemotherapy Nurse Note Name: Khurram Kelly Date: 07/27/2015 Physician: Dr. Garcia Allergies: Khurram is allergic to chlorhexidine towelette. Pre-Chemotherapy Pain Score: Patient reports a pain level of 0 today. Nursing Assessment: Fever: no; Diarrhea: no; SOB / Cough: no; Nausea / Vomiting: no; Anemia / Fatigue: no; Cons tipation: no; Edema: no; S/S Bleeding: no; Mucositis: no; Urinary: no; Neuropathy: no; Rash: no PICC accessed per protocol. Good blood return noted. Appropriate waste discarded. Labs d rawn and sent. PICC pulse flushed with 20 mL NS. Labs: Lab Results Component Value Date WBC 1.03* 07/27/2015 HB 7.8* 07/27/2015 HCT 22.1* 07/27/2015 PLT 13* 07/25/2015 BUN 12 07/27/2015 CR 1.1 07/27/2015 For Treatment Done in Clinic Today: see MAR Narrative: Per lab work no need for electrolyte replacement today. Patient preliminary platelet of [address] Garcia, due to not having time to complete platelet transfusion today r/t late appointment, plan for patient to receive platelets tomorrow in clinic. Platelets ordered for tomorrow. Patient pre-medicated with Zofran 8 mg PO. Chemotherapy was checked by 2 RNs. Decitibine 42 mg IV over 1 hour. was infused per chemo therapy protocol and completed without adverse event. Positive blood return noted pre and p ost infusion. For infusion details, see MAR. Assessment: Tolerated procedure. Plan for patient to return to clinic tomorrow for chemothe rapy, platelets, and appointment with SEDRICK Yanes. 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 | + +--------+ + + + | PRODUCT - PLATELET | Routin | 07/27/2015 | Acute myeloid | Results for this | | PHERESIS | e | 5:18 PM | leukemia (AML), M4 | procedure are in the | | LEUKOREDUCED | | PST | (HCC) | results section. | + +--------+ + + + | CBC AND AUTO DIFF | Urgent | 07/27/2015 | Acute myeloid | Results for this | | | | 3:56 PM | leukemia (AML), M4 | procedure are in the | | | | PST | (HCC) | results section. | + +--------+ + + + | CMP, POC (BMP+LFT) | Routin | 07/27/2015 | Acute myeloid | Results for this | | | e | 3:56 PM | leukemia (AML), M4 | procedure are in the | | | | PST | (HCC) | results section. | + +--------+ + + + | CBC, WITH | Urgent | 07/27/2015 | Acute myeloid | Results for this | | DIFFERENTIAL | | 3:56 PM | leukemia (AML), M4 | procedure are in the | | | | PST | ([facility]) | results section. | + +--------+ + + + | ANTIBODY SCREEN | Routin | 07/27/2015 | Acute myeloid | Results for this | | | e | 3:42 PM | leukemia (AML), M4 | procedure are in the | | | | PST | ([facility]) | results section. | + +--------+ + + + | TYPE AND SCREEN | Routin | 07/27/2015 | Acute myeloid | Results for this | | | e | 3:42 PM | leukemia (AML), M4 | procedure are in the | | | | PST | ([facility]) | results section. | + +--------+ + + + | ABO & RH TYPE | Routin | 07/27/2015 | Acute myeloid | Results for this | | | e | 3:42 PM | leukemia (AML), M4 | procedure are in the | | | | PST | ([facility]) | results section. | + +--------+ + + + | LDH TOTAL, PLASMA | Routin | 07/27/2015 | Acute myeloid | Results for this | | | e | 3:42 PM | leukemia (AML), M4 | procedure are in the | | | | PST | ([facility]) | results section. | + +--------+ + + + | TREATMENT PARAMETERS | Routin | 07/27/2015 | 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 | 3:40 PM | leukemia (AML), M4 | | | | | PST | ([facility]) | | + +--------+ + + + | TREATMENT PARAMETERS | Routin | 07/27/2015 | 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 | 3:40 PM | leukemia (AML), M4 | | | | | PST | ([facility]) | | + +--------+ + + + | TREATMENT PARAMETERS | Routin | 07/27/2015 | 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 | 3:40 PM | leukemia (AML), M4 | | | | | PST | (HCC) | | + +--------+ + + + | TREATMENT PARAMETERS | Routin | 07/27/2015 | 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 | 3:40 PM | leukemia (AML), M4 | | | | | PST | (HCC) | | + +--------+ + + + | TREATMENT PARAMETERS | Routin | 07/27/2015 | 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 | 3:40 PM | leukemia (AML), M4 | | | | | PST | (HCC) | | + +--------+ + + + | NURSING | Routin | 07/27/2015 | Acute myeloid | | | COMMUNICATION #3 - | e | 3:40 PM | leukemia (AML), M4 | | | [place] | | PST | ([facility]) | | + +--------+ + + + | NURSING | Routin | 07/27/2015 | Acute myeloid | | | COMMUNICATION #2 - | e | 3:40 PM | leukemia (AML), M4 | | | [place] | | PST | ([facility]) | | + +--------+ + + + | NURSING | Routin | 07/27/2015 | Acute myeloid | | | COMMUNICATION #1 - | e | 3:40 PM | leukemia (AML), M4 | | | [place] | | PST | ([facility]) | | + +--------+ + + + | TREATMENT PARAMETERS | Routin | 07/27/2015 | Acute myeloid | | | #1 - [place] | e | 3:40 PM | leukemia (AML), M4 | | | | | PST | ([facility]) | | + +--------+ + + + | TREATMENT PARAMETERS | Routin | 07/27/2015 | Acute myeloid | | | #1 - [place] | e | 3:40 PM | leukemia (AML), M4 | | | | | PST | (HCC) | | + +--------+ + + + documented in this encounter Results PRODUCT - PLATELET PHERESIS LEUKOREDUCED (07/27/2015 5:18 PM PST) + + + + + [...] + + + + | PRODUCT | [id number] | | [facility] | | | UNIT [...] + + + + | EXPIRATION | [id number] | | [facility] | | | DATE [...] + + + + | BLOOD | [id number] | | [facility] | | | PRODUCT [...] + + + + | [facility] DEPARTMENT | [address] | [place] [address] | | | PATHOLOGY | [address] | | | + + + + + PRODUCT - PLATELET PHERESIS LEUKOREDUCED (07/27/2015 5:18 PM PST) + + + + + [...] + + + + | PRODUCT | [id number] | | [facility] | | | UNIT [...] + + + | STATUS OF | Returned to Blood Bank | | [facility] | | | UNIT | | | DEPARTMENT | | | | | | OF | | | | | | PATHOLOGY | | + + + + + + | EXPIRATION | [id number] | | [facility] | | | DATE [...] + + + + | BLOOD | [id number] | | [facility] | | | PRODUCT [...] | + + + + + | [facility] DEPARTMENT | [address] | [place] [address] | | | PATHOLOGY | [address] | | | + + + + + CBC AND AUTO DIFF (07/27/2015 3:56 PM PST) + + + + + + | Component | Value | Ref Range | Performed | Pathologist | | | | | At | Signature | + + + + + + | WHITE CELL | 1.03 (L) | 4.40 - 11.00 | [facility] | | | COUNT | | K/cu mm | LABORATORY | | | | | | SERVICES, | | | | | | CORE | | + + + + + + | RED CELL | 2.75 (L) | 4.50 - 6.00 | [facility] | | | COUNT | | M/cu mm | LABORATORY | | | | | | SERVICES, | | | | | | CORE | | + + + + + + | HEMOGLOBIN | 7.8 (L) | 13.5 - 17.5 | [facility] | | | | | g/dL | LABORATORY | | | | | | SERVICES, | | | | | | CORE | | + + + + + + | HEMATOCRIT | 22.1 (L) | 41.0 - 53.0 % | [facility] | | | | | | LABORATORY | | | | | | SERVICES, | | | | | | CORE | | + + + + + + | MCV | 80.4 | 80.0 - 96.0 fL | [facility] | | | | | | LABORATORY | | | | | | SERVICES, | | | | | | CORE | | + + + + + + | MCHC | 35.3 | 33.0 - 35.5 | [facility] | | | | | g/dL | LABORATORY | | | | | | SERVICES, | | | | | | CORE | | + + + + + + | RDW SD | 33.2 (L) | 35.1 - 46.3 fL | [facility] | | | | | | LABORATORY | | | | | | SERVICES, | | | | | | CORE | | + + + + + + | PLATELET | 10 (LL) | 150 - 400 K/cu | [facility] | | | COUNT | | mm | LABORATORY | | | | | | SERVICES, | | | | | | CORE | | + + + + + + | MPV | 11.8 | 9.7 - 12.3 fL | [facility] [...] + + + + | NEUTROPHIL | 8.7 (L) | 50.0 - 70.0 % | [facility] | | | % | | | LABORATORY | | | | | | SERVICES, | | | | | | CORE | | + + + + + + | LYMPHOCYTE | 28.2 | 18.0 - 42.0 % | [facility] | | | % | | | LABORATORY | | | | | | SERVICES, | | | | | | CORE | | + + + + + + | MONOCYTE % | 63.1 (H) | 3.5 - 9.0 % | [facility] | | | | | | LABORATORY | | | | | | SERVICES, | | | | | | CORE | | + + + + + + | EOS % | 0.0 (L) | 1.0 - 3.0 % | [facility] | | | | | | LABORATORY | | | | | | SERVICES, | | | | | | CORE | | + + + + + + | BASO % | 0.0 | 0.0 - 2.0 [...] + + + + | NEUTROPHIL | 0.09 (L) | 1.80 - 7.70 | [facility] | | | # | | K/cu mm | LABORATORY | | | | | | SERVICES, | | | | | | CORE | | + + + + + + | LYMPHOCYTE | 0.29 (L) | 1.00 - 4.80 | [facility] | | | # | | K/cu mm | LABORATORY | | | | | | SERVICES, | | | | | | CORE | | + + + + + + | MONOCYTE # | 0.65 | 0.10 - 0.90 | [facility] | | | | | K/cu mm | LABORATORY | | | | | | SERVICES, | | | | | | CORE | | + + + + + + | EOS # | 0.00 | 0.00 - 0.50 | [facility] | | | | | K/cu mm | LABORATORY | | | | | | SERVICES, | | | | | | CORE | | + + + + + + | BASO # | 0.00 | 0.00 - 0.10 [...] | + + + + + | [facility] | [address] | [place] [address] | | | SERVICES, CORE | [address] | | | + + + + + CMP METABOL,POC (07/27/2015 3:56 PM PST) + +---------+ + + + | Component | Value | Ref Range | Performed | Pathologist | | | | | At | Signature | + +---------+ + + + | SODIUM, POC | 139 | 134 - 143 | [facility] - | | | | | mmol/L [...] +---------+ + + + | GLUCOSE, | 137 (H) | 60 - 99 mg/dL | [facility] - | | | POC | | | [facility] | | | | | | [facility], POINT | | | | | | OF CARE | | | | | | TESTS | | + +---------+ + + + | CALCIUM | 9.1 | 8.6 - 10.2 | [facility] - [...] +---------+ + + + | CREATININE, | 1.1 | 0.7 - 1.3 mg/dL | [facility] [...] + + + | ALT, CMP | 33 | 0 - 60 U/L | [facility] - | | | POC | | | [facility] | | | | | | [facility]TER | | | | | | OF CARE | | | | | | TESTS | | + +---------+ + + + | AST, CMP | 24 | 0 - 41 U/L | [facility] [...] +---------+ + + + | PROTEIN | 7.1 | 6.1 - 7.9 g/dL | [facility] [...] + | [facility] | [address] | [place], [place] | | | [facility]IE CARTER OF CARE | [address] | [address] | | | TESTS | | | | + + + + + ANTIBODY SCREEN (07/27/2015 3:42 PM PST) + + + + + [...] [facility] | [address] | [place] [address] | | | SERVICES, | [address] | | | | TRANSFUSION MEDICINE | | | | + + + + + ABO & RH TYPE (07/27/2015 3:42 PM PST) + + + + + [...] | + + + + + | [facility] | [address] | [place] [address] | | | SERVICES, | [address] | | | | TRANSFUSION MEDICINE | | | | + + + + + LDH TOTAL, PLASMA (07/27/2015 3:42 PM PST) + +---------+ + + + | Component | Value | Ref Range | Performed | Pathologist | | | | | At | Signature | + +---------+ + + + | LD TOTAL, | 131 | <=250 U/L | [facility] | | [...] [facility] | [address] | [place] [address] | | | SERVICES, CORE | [address] [...] 42 mg in | New Bag | 07/27/19 | 42 mg | 258.4 | PICC | | NaCl (PF) IV 42 mg (20 mg/m2 | | 16 4:50 | | mL/hr | | | 2.1 m2 Treatment plan recorded | | PM PST | | | | | BSA), intravenous, Administer | | | | | | | over 1 Hours, ONCE, 1 dose, Tue | | | | | | | 07/27/15 at 1600, HIGH RISK | | | | | | | MEDICATION-CHEMOTHERAPY , | | | | | | + +---------+ +-------+--------+------+ +---+---+ | | | +---+---+ + +-------+ +------+---+---+ | ondansetron (ZOFRAN) tablet 8 | Given | 07/27/19 | 8 mg | | | | mg 8 mg, oral, ONCE, 1 dose, Tue | | 16 4:13 | | | | | 07/27/15 at 1615 | | PM PST | | | | + +-------+ +------+---+---+ +---+---+ | | | +---+---+ documented in this encounter"
--- OUTSIDE RECORDS SUMMARY | ~2019-05-17 | XMS | Encounter Summary ---
Demographics + + + | Address | [address] | | | [place] [address] | + + + | Home Phone [...] Team Providers + +------+ + | Care Selector Packer Name | Role | Phone | + +------+ + | Zayda Hinton | PCP | | + +------+ + Encounter Details +--------+ + + + + | Date | Type | Department | Care Team | Description | +--------+ + + + + | 04/08/ | Telephone | Orthopaedics at | Lobo Jeffers, | | | 2017 | | [facility] [address] | [address] | | | | | [place] Mailcode: [id number] | [address] | | | | | [facility] | [place], [place] | | | | | and [place], | [address] | | | | | [facility] | [phone] | | | | | Floor [place], [place] | | | | | | [address] | | | | | | [phone] | | | +--------+ + + + [...] Rd | | | | | | [place], [place] | | | | | | [address] | | | | | | [phone] | | | | | | | | +--------+---------+ + + + documented as of this encounter Visit Diagnoses Not on filedocumented in this encounter"
--- OUTSIDE RECORDS SUMMARY | ~2019-05-17 | XMS | Encounter Summary ---
Demographics + + + | Address | [address] | | | [place] [address] | + + + | Home Phone [...] + + + | Author | [facility] | + + + | Organization | [facility] | + + + | Address | Unknown | + + + | Phone | Unavailable | + + + Support + + +---------+ + | Name | Relationship | Address | Phone | + + +---------+ + | Gabriel Kelly | ECON | Unknown | | + + +---------+ + Care Team Providers + +------+ + | Care Veterinary Surgeon Name | Role | Phone | + +------+ + | Zayda Hinton | PCP | | + +------+ + Encounter Details +--------+ + + + + | Date | Type | Department | Care Team | Description | +--------+ + + + + | 02/27/ | Pharmacy | Specialty Pharmacy | | | | 2015 | Visit | Services [address] | | | | | | [address] | | | | | | [place], [place] | | | | | | [address] | | | | | | [phone] | | | +--------+ + + + [...] 2019 | Visit | Malignancy | [address] [facility] | | | | | | [address] | | | | | | [place], [place] | | | | | | [address] | | | | | | [phone] | | | | | | | | +--------+---------+ + + + documented as of this encounter Visit Diagnoses Not on filedocumented in this encounter"
--- OUTSIDE RECORDS SUMMARY | ~2019-05-17 | XMS | Encounter Summary ---
Demographics + + + | Address | [address] | | | [place] [address] | + + + | Home Phone [...] Team Providers + +------+ + | Care Pot Filler Name | Role | Phone | + [...] | | | | | | [place], | | | | | | | [place] | | | | | | | [address] | | | | | | | Phone: | | | | | | | [phone] | | | | | | | Fax: | | | | | | | [phone] | +--------+--------+ + + + + Encounter Details +--------+ + + + + | Date | Type | Department | Care Team | Description | +--------+ + + + + | 12/15/ | Clinical | [facility] for | | Lab Draw | | 2016 | Support | Hematologic | | | | | Staff | [facility]ignancies at [facility] | | | | | | [address] | | | | | | [place] Mailcode: | | | | | | [id number] | | | | | | [place], | | | | | | [place] [address] | | | | | | [phone] | | | +--------+ + + + [...] + + + | Blood Pressure | 136/91 | 12/16/2015 10:14 AM | | | | | PDT | | + + + + + | Pulse | 99 | 12/16/2015 10:14 AM | | | | | PDT | | + + + + + | Temperature | 36.7 C (98.1 F) | 12/16/2015 10:14 AM | | | | | PDT | | + + + + + | Respiratory Rate | 16 | 12/16/2015 10:14 AM | | | | | PDT | | + + + + + | Oxygen Saturation | 99% | 12/16/2015 10:14 AM | | | | | PDT | | + + + + + | Inhaled Oxygen | - | - | | | Concentration | | | | + + + + + | Weight | 85.8 kg (189 lb 2.5 | 12/16/2015 10:14 AM | | | | oz) | PDT | | + + + + + | Height | - | - | | + + + + + | Body Mass Index | 24.45 | 08/18/2015 4:35 PM | | | | | PST | | + + + + + documented in this encounter Progress Notes Cherri Winters RN - 12/16/2015 11:20 AM PDTPt denies fevers, chills, sob, n/v, diarrhea, a nd constipation. Pt states he is eating and drinking well. Neostar intact to left anterior chest wall [...] tolerated procedure without difficulty. VAD Lab Draw: Neostar accessed per protocol. Good blood return noted. Appropriate waste discarded. Lab s drawn and sent. Neostar pulse flushed with 20 mL NS. Pt states she will heparin loc k Neostar at home today. Patient scheduled for provider visit today with Aspen Cummins NP. VSS. documented in this enc ounter Plan [...] 2018 | Visit | Malignancy | [address] | | | | | | [address] | | | | | | [place], [place] | | | | | | [address] | | | | | | [phone] | | | | | | | | +--------+---------+ + + + documented as of this encounter Procedures + +--------+ + + + | Procedure Name | Priori | Date/Time | Associated Diagnosis | Comments | | | ty | | | | + +--------+ + + + | BMP + MAG, POC CHM | Routin | 12/16/2015 | S/P allogeneic | Results for this [...] + + | CBC+DIFF,POC | Routin | 12/16/2015 | S/P allogeneic | Results for this | | | e | 10:28 AM | bone marrow | procedure are [...] + | LIVER SET | Urgent | 12/16/2015 | S/P allogeneic | Results for this | | (AST,ALT,BILI | | 10:16 AM | bone marrow | procedure are [...] + + + | TACROLIMUS, WHOLE | Routin | 12/16/2015 | S/P allogeneic | Results for this | | BLOOD | e | 10:16 AM | bone marrow | procedure are in the | | | | PDT | transplant ([facility]) | results section. 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 | | + +--------+ + + + | TREATMENT PARAMETERS | Routin | 12/16/2015 | 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 | 10:15 AM | leukemia (AML), M4 | | | | | PDT | ([facility])- primary | | | | | | induction failure | | + +--------+ + + + | TREATMENT PARAMETERS | Routin | 12/16/2015 | 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 | 10:15 AM | leukemia (AML), 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 | | | | | | induction failure | | + +--------+ + + + | TREATMENT PARAMETERS | Routin | 12/16/2015 | 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 | 10:15 AM | leukemia (AML), 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 | | | | | | induction failure | | + +--------+ + + + | TREATMENT PARAMETERS | Routin | 12/16/2015 | 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 | 10:15 AM | leukemia (AML), 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 | | | | | | induction failure | | + +--------+ + + + | NURSING | Routin | 12/16/2015 | S/P allogeneic | | | COMMUNICATION #5 - | e | 10:15 AM | bone marrow | | | [facility] | | PDT | transplant (HCC) | 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 | | + +--------+ + + + | NURSING | Routin | 12/16/2015 | S/P allogeneic | | | COMMUNICATION #4 - | e | 10:15 AM | bone marrow | | | [facility] | | PDT | transplant (HCC) | 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 | | + +--------+ + + + | NURSING | Routin | 12/16/2015 | S/P allogeneic | | | COMMUNICATION #3 - | e | 10:15 AM | bone marrow | | | [facility] | | PDT | transplant (HCC) | 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 | | + +--------+ + + + | NURSING | Routin | 12/16/2015 | S/P allogeneic | | | COMMUNICATION #3 - | e | 10:15 AM | bone marrow | | | [facility] | | PDT | transplant (HCC) | 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 | | + +--------+ + + + | NURSING | Routin | 12/16/2015 | S/P allogeneic | | | COMMUNICATION #2 - | e | 10:15 AM | bone marrow | | | [facility] | | PDT | transplant (HCC) | 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[facility])- primary | | | | | | induction failure | | + +--------+ + + + | NURSING | Routin | 12/16/2015 | S/P allogeneic | | | COMMUNICATION #1 - | e | 10:15 AM | bone marrow | | | [facility] | | PDT | transplant (HCC) | 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 | | + +--------+ + + + | TREATMENT PARAMETERS | Routin | 12/16/2015 | S/P allogeneic | | | #1 - [facility] | e | 10:15 AM | bone marrow | | | | | PDT | transplant (HCC) | 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 | | + +--------+ + + + | TREATMENT PARAMETERS | Routin | 12/16/2015 | 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 | 10:15 AM | leukemia (AML), M4 | | | | | PDT | ([facility])- primary | | | | | | induction failure | | + +--------+ + + + | NURSING | Routin | 12/16/2015 | S/P allogeneic | | | COMMUNICATION #2 - | e | 10:15 AM | bone marrow | | | [facility] | | PDT | transplant (HCC) | 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 | | + +--------+ + + + | NURSING | Routin | 12/16/2015 | S/P allogeneic | | | COMMUNICATION #1 - | e | 10:15 AM | bone marrow | | | [facility] | | PDT | transplant (HCC) | 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 | | + +--------+ + + + | TREATMENT PARAMETERS | Routin | 12/16/2015 | S/P allogeneic | | | #1 - [facility] | e | 10:15 AM | bone marrow | | | | | PDT | transplant (HCC) | 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 | | + +--------+ + + + | TREATMENT PARAMETERS | Routin | 12/16/2015 | S/P allogeneic | | | #1 - [facility] | e | 10:15 AM | bone marrow | | | | | PDT | transplant (HCC) | 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 | | + +--------+ + + + documented in this encounter Results BMP + MAG, POC CHM (12/16/2015 10:52 AM PDT) + +---------+ + + [...] | | POC | | mmol/L | [facility] | | [...] +---------+ + + + | GLUCOSE, | 121 (H) | 60 - 99 mg/dL | [...] + + + | LDH, POC | 215 (H) | 0 - 206 U/L | [...] [facility] | [address] | [place], [place] | | | [facility] CARE | [address] | [address] | | | TESTS | | | | + + + + + CBC+DIFF,POC (12/16/2015 10:28 AM PDT) + + + + + + | Component | Value | Ref Range | Performed | Pathologist | | | | | At | Signature | + + + + + + | WBC POC | 5.0 | 4.4 - 11.0 | [facility] - | | | | | 10*3/uL | [place] | | | | | | [facility], POINT | | | | | | OF CARE | | | | | | TESTS | | + + + + + + | RBC POC | 3.78 (L) | 4.50 - 6.00 | [facility] - | | | | | 10*6/uL | [place] | | | | | | [facility], POINT | | | | | | OF CARE | | | | | | TESTS | | + + + + + + | HGB POC | 13.4 (L) | 13.5 - 17.5 | [facility] - | | | | | g/dL | [place] | | | | | | [facility], POINT | | | | | | OF CARE | | | | | | TESTS | | + + + + + + | HCT POC | 38.4 (L) | 41.0 - 53.0 % | [facility] - | | | | | | [place] | | | | | | [facility], POINT | | | | | | OF CARE | | | | | | TESTS | | + + + + + + | MCV POC | 101.6 (H) | 80.0 - 96.0 fL | [facility] - | | | | | | [place] | | | | | | [facility] | | | | | | OF CARE | | | | | | TESTS | | + + + + + + | MCH POC | 35.4 (H) | 28.5 - 32.3 pg | [...] + + | RDW SD, POC | 54.9 (H) | 35.1 - 46.3 fL | [facility] - | | | | | | [place] | | | | | | [facility] POINT | | | | | | OF CARE | | | | | | TESTS | | + + + + + + | PLT POC | 39 (L) | 150 - 400 | [facility] - | | | | | 10*3/uL | [place] | | | | | | [facility] POINT | | | | | | OF CARE | | | | | | TESTS | | + + + + + + | MPV POC | 9.1 (L) | 9.7 - 12.3 fL | [facility] - | | | | | | [place] | | | | | | [facility] | | | | | | OF CARE | | | | | | TESTS | | + + + + + + | NEUTROPHIL% | 54.6 | 50.0 - 70.0 % | [facility] - | | | POC | | | [place] | | | | | | [facility] POINT | | | | | | OF CARE | | | | | | TESTS | | + + + + + + | LYMPH% POC | 38.6 | 18 - 42 % | [facility] - | | | | | | [place] | | | | | | [place], POINT | | | | | | OF CARE | | | | | | TESTS | | + + + + + + | MONO %, POC | 5.8 | 3.5 - 9.0 % | [facility] [...] + + + + | NEUTROPHIL# | 2.7 | 1.8 - 7.7 | [facility] - [...] + + | MONO #, POC | 0.3 | 0.1 - 0.9 | [facility] - [...] + + | [facility] | [address] | [place], [place] | | | [facility]INT [facility] CARE | [address] | [address] | | | TESTS | | | | + + + + + LIVER SET (AST,ALT,BILI TOTAL,BILI DIRECT,ALK PHOS,ALB,PROT TOTAL) (12/16/2015 10:16 AM PDT ) + +---------+ + + [...] + + + | ALK PHOS | 62 | 53 - 128 U/L | [facility] | | | | | | LABORATORY | | | | | | SERVICES, | | | | | | CORE | | + +---------+ + + + | AST(SGOT) | 42 (H) | <=41 U/L | [facility] | | | | | | LABORATORY | | | | | | SERVICES, | | | | | | CORE | | + +---------+ + + + | ALT (SGPT) | 109 (H) | <=60 U/L | [facility] | | | | | | LABORATORY | | | | | | SERVICES, | | | | | | CORE | | + +---------+ + + + | TOTAL | 7.2 | 6.4 - 8.2 g/dL | [facility] [...] | + + + + + | [facility] | [address] | [place] [address] | | | SERVICES, INDRA | [address] | | | + + + + + TACROLIMUS, WHOLE BLOOD (12/16/2015 10:16 AM PDT) + +-------+ + + + | Component | Value | Ref Range | Performed | Pathologist | | | | | At | Signature | + +-------+ + + + | TACROLIMUS | 6.4 | 5.0 - 15.0 | [facility] | [...] | Test performed by immunoassay using [employer] i2000. | [facility] | | Therapeutic range is based on a whole blood specimen drawn 12 hours | LABORATORY | | post-dose or prior to next dose (the trough). Some other factors | SERVICES, | | influencing therapeutic range, dose administered, and result | SPECIAL IMM + | | interpretation include time since transplantation, the organ | COAG | | transplanted, co-administration of other immunosuppressants and | | | interaction with other drugs that may increase or decrease Tacrolimus | | | concentrations. | | + + + + + + + + | Performing | Address | City/State/Zipcode | Phone Number | | Organization | | | | + + + + + | [facility] | [address] | [place] [address] | | | SERVICES, SPECIAL | [address] [...]
--- OUTSIDE RECORDS SUMMARY | ~2019-05-17 | XMS | Encounter Summary ---
Demographics + + + | Address | [address] | | | [place] [address] | + + + | Home Phone [...] Team Providers + +------+ + | Care Body Service Team Member Name | Role | Phone | + [...] | | | | | achieved | [facility] [place] | [id number] | | | | | remission | [address] | [place] | | | | | | Phone: | [facility] | | | | | Procedures | [phone] | [place], [place] | | | | | Post BMT | Fax: | [phone] | | | | | Auth to | [phone] | Phone: | | | | | included | | [phone] | | | | | facility, | | Fax: | | | | | diagnostics, | | [phone] | | | | | office | | | | | | | visits and | | | | | | | surgery | | | +--------+---------+ + + + + Encounter Details +--------+---------+ + + + | Date | Type | Department | Care Team | Description | +--------+---------+ + + + | 10/10/ | Office | Center for | Saunders, Em L, | Acute myeloid | | 2016 | Visit | Hematologic | PA-C [address] [facility] | leukemia (AML), M4 | | | | Malignancies at | [address] | ([facility])- primary | | | | [facility] | [place], [place] | induction failure | | | | [address] [facility] | [address] | (Primary Dx); S/P | | | | [address] Mailcode: | [phone] | allogeneic bone | | | | [id number] [place] | | marrow transplant | | | | [facility] [place], | | ([facility]) | | | | [place] [address] | | | | | | [phone] | | | +--------+---------+ + + + [...] + + + | Blood Pressure | 125/81 | 10/11/2015 10:21 AM | | | | | PDT | | + + + + + | Pulse | 83 | 10/11/2015 10:21 AM | | | | | PDT | | + + + + + | Temperature | 36.9 C (98.5 F) | 10/11/2015 10:21 AM | | | | | PDT | | + + + + + | Respiratory Rate | 16 | 10/11/2015 10:21 AM | | | | | PDT | | + + + + + | Oxygen Saturation | 100% | 10/11/2015 10:21 AM | | | | | PDT | | + + + + + | Inhaled Oxygen | - | - | | | Concentration | | | | + + + + + | Weight | 76.1 kg (167 lb 12.8 | 10/11/2015 10:21 AM | | | | oz) | PDT | | + + + + + | Height | - | - | | + + + + + | Body Mass Index | 21.69 | 08/18/2015 4:35 PM | | | | | PST | | + + + + + documented in this encounter Patient Instructions Patient Instructions Em Sanuders PA-C - 10/11/2015 8:25 AM PDT-Take your temperature regularly (3-4 x daily) and to call immediately for a temperature of 100.4 or greater. -We'll call you to adjust your Tacrolimus if necessary. -Okay to take Zyprexa 10 mg at bedtime for sleep. Please verify this is the dose you have a t home. -A refill for Oxycodone has been sent to [facility] pharmacy in [facility]. -Please call if you develop diarrhea that is not responsive to imodium or you develop sever e abdominal cramping. -If you have a watery bowel movement please bring a sample back to clinic for a possible in fectious cause. We will send you home with a kit to collect a sample. documented in this encounter Progress Notes Em Saunders PA-C - 10/11/2015 8:27 AM PDTFormatting of this note might be different f rom the original. 10/11/2015 [facility] Physician: Yari Garcia MD Local Oncologist: Yari Garcia MD PCP: Pending Pcp ADDITION Hematologic Malignancy: Primary refractory AML Conditioning regimen: tBuCy Date of transplant: 08/27/2015 (two day 0s) Donor: MM [facility] (DPB1 permissive antigen mismatch, male, [id number]) Hematologic History: Khurram Kelly is a 25 [...] his L ankle. He was evaluated at [place]'s ED on 06/[address] angiogram negative [...] acute myelomonocytic leukemia. He was referred to [facility] for further evaluation and man agement of his newly dx'd AML. Pt was admitted to [facility] on 05/26/15. Peripheral blood was sent [...] CD34, variable CD56, variable CD117, and dim RH157-[id number] mickey; promonocyte immunophenotype (70% by flow): CD11b, [...] of primary refractory AML, currently d ay +45, s/p tBuCy conditioned MM URD SCT. Interval History: presents to clinic today for his routine scheduled visit. He is accompanied by his who is his caregiver in clinic today. He continues to have a lowe level of abdom inal discomfort with mild cramping almost daily since his last visit. He denies nausea or vo miting. He continues Zofran BID. The discomfort is ongoing. Today his abdominal discomfort i s a 2/10 on the pain scale. He had an unusual BM this morning, his stool went from solid to soft to liquid. It was just the first time this morning and occurred once. He did not take i modium. He is not sure that his discomfort is necessarily better since starting B&B. He cont inues to have a good appetite and is taking in 3 meals with snacks. He is taking in 2 liters of fluids per day. His rash has resolved. He denies fevers. His energy remains good and he is very active. He is often very tired after all his activity, but it makes him feel good to be active and enjoys getting outside. He does not feel like he is overdoing it. He has had difficulty with sleep the past couple nights. He is awake during the day and not napping. He started taking Zyprexa at bedtime, which he had used before for sleep previously, he is uns ure of the dose but thinks it is 10 mg. Review of Systems: General: Denies fevers, chills, [...] Cardiovascular: No chest pain,lightheadedness,shortness of breath. Gastrointestinal: +stomach discomfort Denies indigestion, nausea, vomiting, diarrhea, const ipation, bloody stools or dark tarry stools. Skin: Denies rash Psychological: No abnormal anxiety, depression. +insomina Remainder of ROS is otherwise negative. Current [...] d aily. PREDNISONE 10 MG TABLET Take 25 mg (two and one-half tablet) by mouth once daily. PROCHLORPERAZINE MALEATE 5 MG TABLET [...] e 1 mg capsule) in the evening. Otis 0.5 mg capsules for future use. TACROLIMUS 1 MG CAPSULE Take 1 mg (one 1 mg capsule) by mouth in the morning and 1 mg (one 1 mg capsule) in the evening. Otis 0.5 mg capsules for future use. TRIAMCINOLONE ACETONIDE 0.1 % TOPICAL CREAM Apply to affected area three times daily. Apply thin film to affected areas. SULFAMETHOXAZOLE 800 MG-TRIMETHOPRIM 160 MG TABLET Take 1 tablet by mouth twice daily (ever y Sunday and ). Vitals: BP 125/81 | Pulse 83 | Temp (Src) 36.9 C (98.5 F) (Oral) | RR 16 | Wt 76.114 kg (167 lb 12.8 oz) | SpO2 100% | BMI 21.7 kg/(m^2) Pre-transplant weight 165 pounds Physical Exam: [...] 72 hours (or 3 results) Recent Labs 10/11/15 1045 WBC 12.8* HB 11.2* HCT 33.9* PLT 165 MONOPERC 7.6 BASOPERC 0.2 EOSPERC 0.8* Chemistries: Last 72 Hours (or 3 results): Recent Labs 09/10/15 2300 09/11/15 2313 09/12/15 2326 10/04/15 1225 10/04/15 1242 10/07/15 1015 10/07/15 1043 10/11/15 1021 10/11/15 1046 NA 144 143 142 < > -- 138 -- 139 -- 141 K 3.7 3.9 3.9 < > -- 4.4 -- 3.9 -- 4.1 CL 113* 109* 109* < > -- 99 -- 97 -- 103 BICARB 21 25 25 < > -- 27 -- 29 -- 25 BUN 22* 19 18 < > -- 21* -- 20 -- 15 CR 0.91 0.94 0.96 < > -- 0.8 -- 0.7 -- 0.7 GLU 90 95 121* < > -- 99 -- 106* -- 104* CA 8.1* 8.0* 8.3* < > -- 9.3 -- 9.3 -- 9.4 AST 18 22 19 < > 26 -- 25 -- 22 -- ALT 28 31 35 < > 88* -- 87* -- 68* -- AP 63 83 96 < > 74 -- 66 -- 59 -- TBILI 0.5 0.5 0.4 < > 0.3 -- 0.3 -- 0.3 -- TP 5.8* 6.1* 6.1* < > 6.9 -- 6.7 -- 6.7 -- ALB 2.7* 2.9* 3.0* < > 3.9 -- 3.9 -- 3.8 -- ANIONGAP 10 9 8 -- -- [...] 5.96 x 10^6 per kg -BMT Day: +45 Pertinent Diagnostics: -Around day + 30 repeat [...] eruption of lymphocyte recovery and early mild lnghd-ygsozo-gekv disease. On 09/13, rash in volved ~15% [...] skin remains improved. -Taper prednisone down to 25 mg once daily as of 10/06. Next taper planned 10/14/15 if rash continues to improve. 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 With patients high risk for relapse and known GvHD skin w ill start empiric treatment with B&B. -If symptoms worsen then will likely plan to have GI biopsies done. -Beclomethasone 1 mL suspension four times daily for suspected GvHD upper gut symptoms, st arted 10/06 -Budesonide 3 mg capsule three times daily for possible GvHD lower gut symptoms, started -IST as below Prophylaxis/Treatment: -Tacrolimus with levels [...] Lab Results Component Value Date CMVQUANTPCR Undetected 10/04/2015 CMVQUANTPCR Undetected 09/27/2015 CMVQUANTPCR Undetected 09/21/2015 CMVQUANTPCR Undetected 09/12/2015 Antifungal: Posaconazole as of 09/15/15 with HD steroids for antifungal prophylaxis and we wi ll follow weekly Galactomannan assays. Lab Results Component Value Date GALACTO Negative 10/04/2015 PCP proph: Pentamidine IV for PCP prophlaxis [...] protocol. -Hypomagnesemia: replace in clinic PRN Plan: -Magnesium 4 g IV today in clinic -The tacrolimus dose will be adjusted when the tacrolimus trough is available. -Prednisone 25 mg once daily as of 10/06. Next taper planned 10/14/15 if rash continues to imp rove. -Patient reminded to call if he develops diarrhea that is not responsive to imodium or if h e develops severe abdominal cramping. -If he has another watery bowel movement, he is to collect a stool sample to send for C .di ff testing -Okay to take Zyprexa 10 mg HS for sleep. Patient to verify dose he has at home. -Return to clinic 10/14/15 to see me, sooner prn. Em Saunders PA-C [facility] [place] [address] Mailcode: [id number] [address] documented in this encounter Plan [...] 2019 | Visit | Malignancy | [address] [facility] | | | | | | [address] | | | | | | [place], [place] | | | | | | [address] | | | | | | [phone] | | | | | | | | +--------+---------+ + + + documented as of this encounter Results BMP + MAG, POC CHM (10/14/2015 11:03 AM PDT) + +---------+ + + + [...] + | TOTAL CO2, | 28 | 22 - 29 mmol/L | [facility] [...] +---------+ + + + | GLUCOSE, | 125 (H) | 60 - 99 mg/dL | [...] +---------+ + + + | CREATININE, | 0.6 (L) | 0.7 - 1.3 mg/dL | [facility] - | | | POC | | | [facility] | | | | | | [facility] | | | | | | OF CARE | | | | | | TESTS | | + +---------+ + + + | LDH, POC | 236 (H) | 0 - 206 U/L | [facility] - | | | | | | [facility] | | | | | | [facility] | | | | | | OF CARE | | | | | | TESTS | | + +---------+ + + + | MAGNESIUM, | 1.8 | 1.8 - 2.5 mg/dL | [facility] - | | | POC | | [...] [place] | [address] | [place], [place] | | | [facility] OF CARE | [facility] | [address] | | | TESTS | | | | + + + + + CBC+DIFF,POC (10/14/2015 11:01 AM PDT) + + + + + [...] + + + | RBC POC | 3.25 (L) | 4.50 - 6.00 | [facility] - | | | | | 10*6/uL | [facility] | | | | | | [facility] | | | | | | OF CARE | | | | | | TESTS | | + + + + + + | HGB POC | 10.5 (L) | 13.5 - 17.5 | [facility] - | | | | | g/dL | [facility] | | | | | | [facility] | | | | | | OF CARE | | | | | | TESTS | | + + + + + + | HCT POC | 31.8 (L) | 41.0 - 53.0 % | [facility] - | | | | | | [place] | | | | | | [facility] | | | | | | OF CARE | | | | | | TESTS | | + + + + + + | MCV POC | 97.8 (H) | 80.0 - 96.0 fL | [facility] - | | | | | | [place] | | | | | | [facility], POINT | | | | | | OF CARE | | | | | | TESTS | | + + + + + + | MCH POC | 32.3 | 28.5 - 32.3 pg | [facility] - | | | | | | [facility] | | | | | | [facility] | | | | | | OF CARE | | | | | | TESTS | | + + + + + + | MCHC POC | 33.0 | 33.0 - 35.5 | [facility] - | | | | | g/dL | [facility] | | | | | | [facility] | | | | | | OF CARE | | | | | | TESTS | | + + + + + + | RDW SD, POC | 62.4 (H) | 35.1 - 46.3 fL | [facility] - | | | | | | [place] | | | | | | [facility] | | | | | | OF CARE | | | | | | TESTS | | + + + + + + | PLT POC | 132 (L) | 150 - 400 | [facility] [...] + + + + | NEUTROPHIL% | 83.6 (H) | 50.0 - 70.0 % | [facility] - | | | POC | | | [facility] | | | | | | [facility] | | | | | | OF CARE | | | | | | TESTS | | + + + + + + | LYMPH% POC | 7.7 (L) | 18 - 42 % | [facility] - | | | | | | [facility] | | | | | | [facility], POINT | | | | | | OF CARE | | | | | | TESTS | | + + + + + + | MONO %, POC | 7.4 | 3.5 - 9.0 % | [facility] - | | | | | | [facility] | | | | | | [facility], POINT | | | | | | OF CARE | | | | | | TESTS | | + + + + + + | EOS %, POC | 1.1 | 1.0 - 3.0 % | [facility] [...] + + + + | NEUTROPHIL# | 9.0 (H) | 1.8 - 7.7 | [facility] - | | | POC | | 10*3/uL | [facility] | | | | | | [facility] | | | | | | OF CARE | | | | | | TESTS | | + + + + + + | LYMPH# POC | 0.8 (L) | 1.0 - 4.8 | [facility] [...] + + + + | [facility] | [address] | [place], [place] | | | [facility] OF CARE | [address] | [address] | | | TESTS | | | | + + + + + TACROLIMUS, WHOLE BLOOD (10/14/2015 10:52 AM PDT) + +-------+ + + + | Component | Value | Ref Range | Performed | Pathologist | | | | | At | Signature | + +-------+ + + + | TACROLIMUS | 8.7 | 5.0 - 15.0 | [facility] | [...] + + + + + | [facility] | [address] | [place] [address] | | | SERVICES, SPECIAL | [address] | | | | IMM + COAG | | | | + + + + + PHOSPHORUS, PLASMA (10/14/2015 10:52 AM PDT) + +-------+ + + + | Component | Value | Ref Range | Performed | Pathologist | | | | | At | Signature | + +-------+ + + + | PHOSPHORUS, | 3.1 | 2.4 - 4.7 mg/dL | [facility] [...] [facility] | [address] | [place] [address] | | | INDRA SHARIF | [address] | | | + + + + + LIVER SET (AST,ALT,BILI TOTAL,BILI DIRECT,ALK PHOS,ALB,PROT TOTAL) (10/14/2015 10:52 AM PDT ) + +---------+ + + [...] + + + | ALK PHOS | 57 | 53 - 128 U/L | [facility] | | | | | | LABORATORY | | | | | | SERVICES, | | | | | | CORE | | + +---------+ + + + | AST(SGOT) | 40 | <=41 U/L | [facility] | | | | | | LABORATORY | | | | | | SERVICES, | | | | | | CORE | | + +---------+ + + + | ALT (SGPT) | 132 (H) | <=60 U/L | [facility] | [...] | + + + + + | [facility] | [address] | [place] [address] | | | SERVICES, CORE | [address] [...]
--- OUTSIDE RECORDS SUMMARY | ~2019-05-17 | XMS | Encounter Summary ---
Demographics + + + | Address | [address] | | | [place] [address] | + + + | Home Phone [...] Team Providers + +------+ + | Care Marketing Lead Name | Role | Phone | + +------+ + | Zayda Hinton | PCP | | + +------+ + Encounter Details +--------+ + + + + | Date | Type | Department | Care Team | Description | +--------+ + + + + | 10/10/ | Documentati | Endoscopic | Lab, Gi Procedure | | | 2017 | on | Procedural Unit at | | | | | | [address] | | | | | | [address] | | | | | | [place] Mailcode: [id number] | | | | | | [place] | | | | | | [address] [facility] [place] | | | | | | [address] | | | | | | [phone] | | | +--------+ + + + [...] 2019 | Visit | Malignancy | [address] [facility] | | | | | | [address] | | | | | | [place], [place] | | | | | | [address] | | | | | | [phone] | | | | | | | | +--------+---------+ + + + documented as of this encounter Visit Diagnoses Not on filedocumented in this encounter"
--- OUTSIDE RECORDS SUMMARY | ~2019-05-17 | XMS | Encounter Summary ---
Demographics + + + | Address | [address] | | | [place] [address] | + + + | Home Phone | | + + + | Preferred Language | Unknown | + + + | Marital Status | | + + + | Adventism Affiliation | SPI | + + + | Race | White | + + + | Ethnic Group | Not or | + + + Author + + + | Author | [facility] | + + + | Organization | [facility] | + + + | Address | Unknown | + + + | Phone | Unavailable | + + + Support + + +---------+ + | Name | Relationship | Address | Phone | + + +---------+ + | Gabriel Kelly | ECON | Unknown | | + + +---------+ + Care Team Providers + +------+ + | Care Ornamental Iron Worker Name | Role | Phone | + +------+ + | Pending Pcp Addition | PCP | Unavailable | + +------+ + Encounter Details +--------+ + + + + | Date | Type | Department | Care Team | Description | +--------+ + + + + | 12/26/ | Hospital | Diagnostic | | | | 2015 | Encounter | [facility] at [facility] | | | | | | [address] | | | | | | [place] Mailcode: | | | | | | [id number] | | | | | | [place], | | | | | | [place] [address] | | | | | | [phone] | | | +--------+ + + + [...] 2019 | Visit | Malignancy | [address] [facility] | | | | | | [address] | | | | | | [place], [place] | | | | | | [address] | | | | | | [phone] | | | | | | | | +--------+---------+ + + + documented as of this encounter Procedures + +--------+ + + + | Procedure Name | Priori | Date/Time | Associated Diagnosis | Comments | | | ty | | | | + +--------+ + + + | X-RAY KNEE 2 VIEWS | Routin | 12/27/2015 | Acute pain of both | Results for this | | BILATERAL | e | 2:50 PM | knees | procedure are in the | | | | PDT | | results section. | + +--------+ + + + documented in this encounter Results X-RAY KNEE 2 VIEWS BILATERAL (12/27/2015 2:50 PM PDT) + + + + + + | Component | Value | Ref Range | Performed | Pathologist | | | | | At | Signature | + + + + + + | KNEE 2 | EXAM: KNEE 2 VIEWS | | | | | VIEWS | BILATERAL 12/27/15 | | | | | BILATERAL | 14:24:00 HISTORY: | | | | | | Bilateral knee pain. 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 COMPARISON: | | | | | | None. FINDINGS: Right | | | | | | knee:No fracture, focal | | | | | | osseous destruction or | | | | | | malalignment. Joint | | | | | | spaces aremaintained. No | | | | | | joint effusion is | | | | | | noted. Left knee:No | | | | | | fracture, focal osseous | | | | | | destruction or | | | | | | malalignment. Joint | | | | | | spaces aremaintained. No | | | | | | joint effusion is | | | | | | noted. IMPRESSION: | | | | | | Normal knee radiographs. | | | | | | Attending Radiologists: | | | | | | DANIELA MYERS, | | | | | | MDAuthor: SAFIA | | | | | | MD Ailin COHEN | | | | | | personally [...] | | | | | signed / DANIELA | | | | | | LUCIA 12/27/2015 15:31 | | | | | | PM | | | | + + + + + + + + | Specimen | + + | | + + + +---------+ + + | Performing | Address | City/State/Zipcode | Phone Number | | Organization | | | | + +---------+ + + | [facility] | | | | | [facility]IOLOG[facility] | | | | + +---------+ + + documented in this encounter Visit Diagnoses + + | Diagnosis | + + | Acute pain of both knees | + + documented in this encounter"
--- OUTSIDE RECORDS SUMMARY | ~2019-05-17 | XMS | Encounter Summary ---
Demographics + + + | Address | [address] | | | [place] [address] | + + + | Home Phone [...] + + | Author | [facility] | + + + | Organization | [facility] | + + + | Address | Unknown | + + + | Phone | Unavailable | + + + Support + + +---------+ + | Name | Relationship | Address | Phone | + + +---------+ + | Gabriel Kelly | ECON | Unknown | | + + +---------+ + Care Team Providers + +------+ + | Care Precinct Police Lieutenant Name | Role | Phone | + [...] | ic leukemia, | [address] | [facility] | | | | | not having | [address] | [address] | | | | | achieved | [place], [place] | Rd Mailcode: | | | | | remission | [address] | [id number] | | | | | Procedures | Phone: | [place] | | | | | MD | [phone] | Pavilion | | | | | AZACITIDINE | Fax: | [place], [place] | | | | | INJECTION, 1 | [phone] | [address] | | | | | MG MD | | Phone: | | | | | CHM,IV | | [phone] | | | | | INFSN,1 HR | | Fax: | | | | | MD CHM,IV | | [phone] | | | | | INFSN,ADDL | | | | | | | HR Vidaza | | | +--------+---------+ + + + + Encounter Details +--------+ + + + + | Date | Type | Department | Care Team | Description | +--------+ + + + + | 11/02/ | Clinical | Center for | | Lab Draw; | | 2015 | Support | Hematologic | | Chemotherapy | | | Staff | [facility] | | | | | | [address] | | | | | | [address] Mailcode: | | | | | | [id number] | | | | | | [place], | | | | | | [place] [address] | | | | | | [phone] | | | +--------+ + + + [...] of this encounter Progress Notes Deedee Benites, ZAFAR - 11/03/2015 11:32 AM PDT Assessment Patient reports he is feeling well today. Pt reports that he feels slight side effects in h is stomach- just an un easy feeling, not quite nausea. He has no other complaints. The patient denies colds, flu, fever, infection, nausea, vomiting, diarrhea, constipation, signs or symptoms of mucositis, edema, skin rash, urinary issues, shortness of breath and s igns or symptoms of bleeding. The patient reports that they are eating well and drinking at least two liters of fluid daily. Patient scheduled for provider visit today with Dr Garcia. Labs Neostar accessed per protocol. Good blood return noted. Appropriate waste discarded. Lab s drawn and sent. Neostar pulse flushed with 20 mL NS. Patient took his tacrolimus, so a le ramakrishna will be drawn tomorrow. Dressing Change CDI, WNL and due to be changed 11/07 Chemotherapy Labs: Lab Results Component Value Date WBC 6.6 11/03/2015 HB 12.3* 11/03/2015 HCT 37.1* 11/03/2015 PLT 80* 11/03/2015 BUN 18 11/03/2015 CR 0.7 11/03/2015 For Treatment Done in Clinic Today: see MAR Narrative: Patient was pre-medicated with Ondansetron 8mg PO Chemotherapy was checked by 2 RNs. IV Vidaza was infused per chemotherapy protocol and com pleted without adverse event. Positive blood return noted pre, during and post infusion. F or infusion details, see MAR. Assessment: Tolerated procedure Patient discharged home, ambulatory from clinic. 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 | | | | | | induction failure | | + +--------+ + + + | TREATMENT PARAMETERS | Routin | 11/03/2015 | 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), 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 | | | | | | induction failure | | + +--------+ + + + | TREATMENT PARAMETERS | Routin | 11/03/2015 | 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), 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 | | | | | | induction failure | | + +--------+ + + + | TREATMENT PARAMETERS | Routin | 11/03/2015 | Acute myeloid | | | #1 - BEACON | e | 11:26 AM | leukemia (AML), 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 | | | | | | induction failure | | + +--------+ + + + | TREATMENT PARAMETERS | Routin | 11/03/2015 | Acute myeloid | | | #1 - [facility]ON | e | 11:26 AM | leukemia (AML), 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 | | | | | | induction failure | | + +--------+ + + + | CBC+DIFF,POC | Routin | 11/03/2015 | S/P allogeneic | Results for this | | | e | 10:26 AM | bone marrow | procedure are in the | | | | PDT | transplant ([facility]) | results section. 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[facility])- primary | | | | | | induction failure | | + +--------+ + + + | BMP + MAG, POC CHM | Routin | 11/03/2015 | S/P allogeneic | Results for this | | | e | 10:24 AM | bone marrow | procedure are in the | | | | PDT | transplant ([facility]) | results section. 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[facility])- primary | | | | | | induction failure | | + +--------+ + + + | PROCEED WITH | Routin | 11/03/2015 | Acute myeloid | | | CHEMOTHERAPY | e | 10:17 AM | leukemia (AML), M4 | | | OVERRIDE TREATMENT | | PDT | ([facility])- primary | | | PARAMETERS | | | induction failure | | + +--------+ + + + | TREATMENT PARAMETERS | Routin | 11/03/2015 | 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 | 10:08 AM | leukemia (AML), M4 | | | | | PDT | ([facility])- primary | | | | | | induction failure | | + +--------+ + + + | NURSING | Routin | 11/03/2015 | Acute myeloid | | | COMMUNICATION #3 - | e | 10:08 AM | leukemia (AML), M4 | | | [facility] | | PDT | ([facility])- primary | | | | | | induction failure | | + +--------+ + + + | NURSING | Routin | 11/03/2015 | Acute myeloid | | | COMMUNICATION #2 - | e | 10:08 AM | leukemia (AML), M4 | | | [facility] | | PDT | ([facility])- primary | | | | | | induction failure | | + +--------+ + + + | NURSING | Routin | 11/03/2015 | Acute myeloid | | | COMMUNICATION #1 - | e | 10:08 AM | leukemia (AML), M4 | | | [facility] | | PDT | ([facility])- primary | | | | | | induction failure | | + +--------+ + + + documented in this encounter Results CBC+DIFF,POC (11/03/2015 10:26 AM PDT) + + + + + + | Component | Value | Ref Range | Performed | Pathologist | | | | | At | Signature | + + + + + + | WBC POC | 6.6 | 4.4 - 11.0 | [facility] - | | | | | 10*3/uL | [facility] | | | | | | [facility] | | | | | | OF CARE | | | | | | TESTS | | + + + + + + | RBC POC | 3.65 (L) | 4.50 - 6.00 | [facility] - | | | | | 10*6/uL | [facility] | | | | | | [facility], POINT | | | | | | OF CARE | | | | | | TESTS | | + + + + + + | HGB POC | 12.3 (L) | 13.5 - 17.5 | [facility] - | | | | | g/dL | [facility] | | | | | | [facility], POINT | | | | | | OF CARE | | | | | | TESTS | | + + + + + + | HCT POC | 37.1 (L) | 41.0 - 53.0 % | [...] + + + | MCH POC | 33.7 (H) | 28.5 - 32.3 pg | [...] + + + | PLT POC | 80 (L) | 150 - 400 | [facility] [...] + + + + | NEUTROPHIL% | 65.3 | 50.0 - 70.0 % | [facility] - | | | POC | | | [facility] | | | | | | [facility] | | | | | | OF CARE | | | | | | TESTS | | + + + + + + | LYMPH% POC | 28.0 | 18 - 42 % | [facility] [...] + + + + | NEUTROPHIL# | 4.4 | 1.8 - 7.7 | [facility] - [...] [facility] | [address] | [place], [place] | | | [facility] OF CARE | [facility] | [address] | | | TESTS | | | | + + + + + BMP + MAG, POC CHM (11/03/2015 10:24 AM PDT) + +---------+ + + + | Component | Value | Ref Range | Performed | Pathologist | | | | | At | Signature | + +---------+ + + + | SODIUM, POC | 142 | 134 - 143 | [facility] - | | | | | mmol/L | [facility] | | | | | | [facility] | | | | | | [...] +---------+ + + + | GLUCOSE, | 123 (H) | 60 - 99 mg/dL | [...] + + + | BUN, POC | 18 | 6 - 20 mg/dL | [facility] [...] + + + | LDH, POC | 252 (H) | 0 - 206 U/L | [...] [facility] | [address] | [place], [place] | | | [facility] POINT OF CARE | [address] | [address] | | | TESTS | | | [...] | + +---------+ +-------+-------+------+ | azaCITIDine (VIDAZA) 65 mg in | New Bag | 11/03/19 | 65 mg | 213 | | | NaCl 0.9 % IV 65 mg (rounded | | 16 10:45 | | mL/hr | | | from 64.64 mg = 32 mg/m2 | | AM PDT | | | | | 2.02 m2 Treatment plan recorded | | | | | | | BSA), intravenous, Administer | | | | | | | over 30 Minutes, ONCE, 1 dose, | | | | | | | 11/03/15 at 1045, HIGH RISK | | | | | | | MEDICATION-CHEMOTHERAPY | | | | | | | Administration must be completed | | | | | | | within 1 hour of preparation., | | | | | | + +---------+ +-------+-------+------+ +---+---+ | | | +---+---+ + +-------+ + +---+---+ | heparin 10 unit/mL IV flush | Given | 11/03/19 | 50 Units | | | | syringe 50 Units 50 Units, | | 16 11:32 | | | | | Intracatheter, NEEDED, | | AM PDT | | | | | Starting Sun11/03/15 at 1236, | | | | | | | Until Sun11/03/15 at 1837, line | | | | | | | patency | | | | | | + +-------+ + +---+---+ +-------+ + +---+---+ | Given | 11/03/19 | 50 Units | | | | | 16 11:31 | | | | | | AM PDT | | | | +-------+ + +---+---+ | Given | 11/03/19 | 50 Units | | | | | 16 11:30 | | | | | | AM PDT | | | | +-------+ + +---+---+ +---+---+ | | | +---+---+ + +-------+ +------+---+---+ | ondansetron (ZOFRAN) tablet 8 | Given | 11/03/19 | 8 mg | | | | mg 8 mg, oral, ONCE, 1 dose, Sun | | 16 10:15 | | | | | 4/27/16 at 1030 | | AM PDT | | | | + +-------+ +------+---+---+ +---+---+ | | | +---+---+ documented in this encounter"
--- OUTSIDE RECORDS SUMMARY | ~2019-05-17 | XMS | Encounter Summary ---
Demographics + + + | Address | [address] | | | [place] [address] | + + + | Home Phone [...] + + + | Author | [facility] | + + + | Organization | [facility] | + + + | Address | Unknown | + + + | Phone | Unavailable | + + + Support + + +---------+ + | Name | Relationship | Address | Phone | + + +---------+ + | Gabriel Kelly | ECON | Unknown | | + + +---------+ + Care Team Providers + +------+ + | Care Loss Prevention/Safety District Manager Name | Role | Phone | + +------+ + | Pending Pcp Addition | PCP | Unavailable | + +------+ + Reason for Visit + + + | Reason | Comments | + + + | Schedule labs | PICC | + + + | Transfusion | PRBCs | + + + Benefits Check (Routine) [...] | | | | | | [place], | | | | | | | [place] | | | | | | | [address] | | | | | | | Phone: | | | | | | | [phone] | | | | | | | Fax: | | | | | | | [phone] | +--------+--------+ + + + + Encounter Details +--------+ + + + + | Date | Type | Department | Care Team | Description | +--------+ + + + + | 07/10/ | Clinical | Center for | | Schedule labs | | 2016 | Support | Hematologic | | (PICC); Transfusion | | | Staff | [facility] | | (PRBCs) | | | | [address] | | | | | | [address] Mailcode: | | | | | | [id number] [address] | | | | | | [place], | | | | | | [place] [address] | | | | | | [phone] | | | +--------+ + + + [...] + + + | Blood Pressure | 120/69 | 07/10/2015 1:55 PM | | | | | PST | | + + + + + | Pulse | 80 | 07/10/2015 1:55 PM | | | | | PST | | + + + + + | Temperature | 36.6 C (97.9 F) | 07/10/2015 1:55 PM | | | | | PST | | + + + + + | Respiratory Rate | 16 | 07/10/2015 1:55 PM | | | | | PST | | + + + + + | Oxygen Saturation | 100% | 07/10/2015 1:55 PM | | | | | PST | | + + + + + | Inhaled Oxygen | - | - | | | Concentration | | | | + + + + + | Weight | 83.8 kg (184 lb 11.9 | 07/10/2015 10:45 AM | | | | oz) | PST | | + + + + + | Height | - | - | | + + + + + | Body Mass Index | 23.21 | 05/27/2015 2:00 PM | | | | | PST | | + + + + + documented in this encounter Progress Notes Jyoti Ramachandran RN - 07/10/2015 11:05 AM PST Patient reports he is feeling well today. Khurram has no complaints. The patient denies c olds, flu, fever, infection, nausea, vomiting, diarrhea, constipation, signs or symptoms of neuropathy, mucositis, edema, skin rash, urinary issues, and signs or symptoms of bleeding. The patient reports that they are eating well and drinking at least two liters of fluid afia y. PICC accessed per protocol. Good blood return noted. Appropriate waste discarded. Labs d rawn and sent. PICC pulse flushed with 20 mL NS. Lab Results Component Value Date HCT 20.3 07/10/2015 HB 7.3 07/10/2015 Orders to transfuse PRBC product for a [...] ON C Lines & Transfusions doc flowsheet. Pt discharged [...] | Visit | Malignancy | [address] [facility] | | | | | | [address] | | | | | | [place], [place] | | | | | | [address] | | | | | | [phone] | | | | | | | | +--------+---------+ + + + documented as of this encounter Procedures + +--------+ + + + | Procedure Name | Priori | Date/Time | Associated Diagnosis | Comments | | | ty | | | | + +--------+ + + + | PRODUCT - RED CELLS | Routin | 07/10/2015 | Acute myeloid | Results for this | | LEUKOREDUCED | e | 11:37 AM | leukemia (AML), M4 | procedure are in the | | | | PST | ([facility]) | results section. | + +--------+ + + + | ANTIBODY SCREEN | Urgent | 07/10/2015 | Acute myeloid | Results for this | | | | 11:37 AM | leukemia (AML), M4 | procedure are in the | | | | PST | ([facility]) | results section. | + +--------+ + + + | TYPE AND SCREEN | Urgent | 07/10/2015 | Acute myeloid | Results for this | | | | 11:37 AM | leukemia (AML), M4 | procedure are in the | | | | PST | ([facility]) | results section. | + +--------+ + + + | ABO & RH TYPE | Urgent | 07/10/2015 | Acute myeloid | Results for this | | | | 11:37 AM | leukemia (AML), M4 | procedure are in the | | | | PST | ([facility]) | results section. | + +--------+ + + + | BMP + MAG, POC CHM | Urgent | 07/10/2015 | Acute myeloid | Results for this | | | | 11:11 AM | leukemia (AML), M4 | procedure are in the | | | | PST | ([facility]) | results section. | + +--------+ + + + | CBC AND AUTO DIFF | Urgent | 07/10/2015 | Acute myeloid | Results for this | | | | 10:45 AM | leukemia (AML), M4 | procedure are in the | | | | PST | ([facility]) | results section. | + +--------+ + + + | MANUAL DIFFERENTIAL | Routin | 07/10/2015 | Acute myeloid | Results for this | | | e | 10:45 AM | leukemia (AML), M4 | procedure are in the | | | | PST | ([facility]) | results section. | + +--------+ + + + | CBC, WITH | Urgent | 07/10/2015 | Acute myeloid | Results for this | | DIFFERENTIAL | | 10:45 AM | leukemia (AML), M4 | procedure are in the | | | | PST | (HCC) | results section. | + +--------+ + + + | LIVER SET | Urgent | 07/10/2015 | Acute myeloid | Results for this | | (AST,ALT,BILI | | 10:45 AM | leukemia (AML), M4 | procedure are in the | | TOTAL,BILI | | PST | (HCC) | results section. | | DIRECT,ALK | | | | | | PHOS,ALB,PROT TOTAL) | | | | | + +--------+ + + + | PHOSPHORUS, PLASMA | Urgent | 07/10/2015 | Acute myeloid | Results for this | | | | 10:45 AM | leukemia (AML), M4 | procedure are in the | | | | PST | (HCC) | results section. | + +--------+ + + + | URIC ACID, PLASMA | Urgent | 07/10/2015 | Acute myeloid | Results for this | | | | 10:45 AM | leukemia (AML), M4 | procedure are in the | | | | PST | (HCC) | results section. | + +--------+ + + + documented in this encounter Results PRODUCT - RED CELLS LEUKOREDUCED (07/10/2015 11:37 AM PST) + + + + + [...] + + + + | PRODUCT | [id number] | | [facility] | | | UNIT [...] + + + + | EXPIRATION | [id number] | | [facility] | | | DATE [...] + + + + | BLOOD | [id number] | | [facility] | | | PRODUCT [...] [facility] | [address] | [place] [address] | | | PATHOLOGY | [address] | | | + + + + + ANTIBODY SCREEN (07/10/2015 11:37 AM PST) + + + + + [...] + | [facility] | [address] | [place] [address] | | | SERVICES, | [address] | | | | TRANSFUSION MEDICINE | | | | + + + + + ABO & RH TYPE (07/10/2015 11:37 AM PST) + + + + + [...] [facility] | [address] | [place] [address] | | | SERVICES, | [address] | | | | TRANSFUSION MEDICINE | | | | + + + + + BMP PLUS, POC CHM (07/10/2015 11:11 AM PST) + +---------+ + + + [...] 3.7 | 3.4 - 5.0 | [facility] - [...] | | | POC | | | [facility] | | | | | | [facility] | | | | | | OF CARE | | | | | | TESTS | | + +---------+ + + + | LDH, POC | 168 | 0 - 206 U/L | [facility] - | | | | | | [facility] | | | | | | [facility] | | | | | | OF CARE | | | | | | TESTS | | + +---------+ + + + | MAGNESIUM, | 2.1 | 1.8 - 2.5 mg/dL | [facility] - | | | POC | | | [facility] | | | [...] [facility] | [address] | [place], [place] | | | [facility] OF [facility] | [address] | [address] | | | TESTS | | | | + + + + + MANUAL DIFFERENTIAL (07/10/2015 10:45 AM PST) + + + + + + | Component | Value | Ref Range | Performed | Pathologist | | | | | At | Signature | + + + + + + | NEUTROPHIL | 1.8 (L) | 50.0 - 70.0 % | [facility] | | | % | | | LABORATORY | | | | | | SERVICES, | | | | | | CORE | | + + + + + + | LYMPHOCYTE | 34.5 | 18.0 - 42.0 % | [facility] | | | % | | | LABORATORY | | | | | | SERVICES, | | | | | | CORE | | + + + + + + | MONOCYTE % | 56.4 (H) | 3.5 - 9.0 % | [facility] | | | | | | LABORATORY | | | | | | SERVICES, | | | | | | CORE | | + + + + + + | EOSINOPHIL | 0.0 (L) | 1.0 - 3.0 [...] + + + + + + | ATYPICAL | 7.3 (HH) | 0.0 % | [facility] | | | CELL % | | | LABORATORY | | | | | | SERVICES, | | | | | | CORE | | + + + + + + | NEUTROPHIL | 0.01 (L) | 1.80 - 7.70 | [facility] | | | # | | K/cu mm | LABORATORY | | | | | | SERVICES, | | | | | | CORE | | + + + + + + | LYMPHOCYTE | 0.26 (L) | 1.00 - 4.80 | [facility] | | | # | | K/cu mm | LABORATORY | | | | | | SERVICES, | | | | | | CORE | | + + + + + + | MONOCYTE # | 0.43 | 0.10 - 0.90 | [facility] | | | | | K/cu mm | LABORATORY | | | | | | SERVICES, | | | | | | CORE | | + + + + + + | EOSINOPHIL | 0.00 | 0.00 - 0.50 | [...] + + + + + + | ATYPICAL | 0.06 | K/cu mm | [facility] | | | CELLS # | | | LABORATORY | | [...] [facility] | [address] | [place] [address] | | | SERVICES, CORE | [address] | | | + + + + + CBC AND AUTO DIFF (07/10/2015 10:45 AM PST) + + + + + + | Component | Value | Ref Range | Performed | Pathologist | | | | | At | Signature | + + + + + + | WHITE CELL | 0.76 (L) | 4.40 - 11.00 | [facility] | | | COUNT | | K/cu mm | LABORATORY | | | | | | SERVICES, | | | | | | CORE | | + + + + + + | RED CELL | 2.48 (L) | 4.50 - 6.00 | [facility] | | | COUNT | | M/cu mm | LABORATORY | | | | | | SERVICES, | | | | | | CORE | | + + + + + + | HEMOGLOBIN | 7.3 (L) | 13.5 - 17.5 | [facility] | | | | | g/dL | LABORATORY | | | | | | SERVICES, | | | | | | CORE | | + + + + + + | HEMATOCRIT | 20.3 (L) | 41.0 - 53.0 % | [facility] | | | | | | LABORATORY | | | | | | SERVICES, | | | | | | CORE | | + + + + + + | MCV | 81.9 | 80.0 - 96.0 fL | [facility] | | | | | | LABORATORY | | | | | | SERVICES, | | | | | | CORE | | + + + + + + | MCHC | 36.0 | 33.0 - 35.5 | [facility] | | | | | g/dL | LABORATORY | | | | | | SERVICES, | | | | | | CORE | | + + + + + + | RDW SD | 33.5 (L) | 35.1 - 46.3 fL | [facility] | | | | | | LABORATORY | | | | | | SERVICES, | | | | | | CORE | | + + + + + + | PLATELET | 22 (L) | 150 - 400 K/cu | [facility] | | | COUNT | | mm | LABORATORY | | | | | | SERVICES, | | | | | | CORE | | + + + + + + | MPV | 9.9 | 9.7 - 12.3 fL | [facility] [...] [facility] | [address] | [place] [address] | | | SERVICES, CORE | [address] | | | + + + + + URIC ACID, PLASMA (07/10/2015 10:45 AM PST) + +---------+ + + + | Component | Value | Ref Range | Performed | Pathologist | | | | | At | Signature | + +---------+ + + + | URIC ACID, | 3.6 (L) | 3.7 - 8.0 mg/dL | [...] [facility] | [address] | [place] [address] | | | SERVICES, CORE | [address] | | | + + + + + PHOSPHORUS, PLASMA (07/10/2015 10:45 AM PST) + +-------+ + + + [...] | + + + + + | [facility] | [address] | [place] [address] | | | SERVICES, CORE | [address] | | | + + + + + LIVER SET (AST,ALT,BILI TOTAL,BILI DIRECT,ALK PHOS,ALB,PROT TOTAL) (07/10/2015 10:45 AM PST ) + +---------+ + + [...] +---------+ + + + | AST(SGOT) | 31 | <=41 U/L | [facility] | | | | | | LABORATORY | | | | | | SERVICES, | | | | | | CORE | | + +---------+ + + + | ALT (SGPT) | 61 (H) | <=60 U/L | [facility] | [...] [facility] | [address] | [place] [address] | | | SERVICES, INDRA | [address] [...] +-------+------+------+ | diphenhydrAMINE (BENADRYL) | Given | 07/10/19 | 50 mg | | | | capsule 25-50 mg 25-50 mg, oral, | | 16 12:24 | | | | | ONCE, 1 dose, 07/10/15 at 1200 | | PM PST | | | | + +--------+ +-------+------+------+ +---+---+ | | | +---+---+ documented in this encounter"
--- OUTSIDE RECORDS SUMMARY | ~2019-05-17 | XMS | Encounter Summary ---
Demographics + + + | Address | [address] | | | [place] [address] | + + + | Home Phone | | + + + | Preferred Language | Unknown | + + + | Marital Status | | + + + | Shinto Affiliation | SPI | + + + [...] Team Providers + +------+ + | Care First Press Operator Name | Role | Phone | [...] | | | | | achieved | [place], [place] | [facility] | | | | | remission | [address] | [facility] | | | | | | Phone: | [facility] | | | | | Procedures | [phone] | [place], [place] | | | | | Post BMT | Fax: | [address] | | | | | Auth to | [phone] | Phone: | | | | | included | | [phone] | | | | | facility, | | Fax: | | | | | diagnostics, | | [phone] | | | | | office | | | | | | | visits and | | | | | | | surgery | | | +--------+---------+ + + + + Encounter Details +--------+---------+ + + + | Date | Type | Department | Care Team | Description | +--------+---------+ + + + | 10/26/ | Office | Center for | Aspen Cummins FNP | S/P allogeneic bone | | 2017 | Visit | Hematologic | [address] [facility] [address] | marrow transplant | | | | Malignancies at | [address] | ([facility]) (Primary Dx); | | | | [facility] | [place], [place] | Tachycardia | | | | [address] | [address] | | | | | [address] Mailcode: | [phone] | | | | | [facility] | | | | | | Pavilion [place], | | | | | | [place] [address] | | | | | | [phone] | | | +--------+---------+ + + + [...] + + + | Blood Pressure | 129/92 | 10/26/2016 10:28 AM | | | | | PDT | | + + + + + | Pulse | 125 | 10/26/2016 10:28 AM | | | | | PDT | | + + + + + | Temperature | 36.9 C (98.4 F) | 10/26/2016 10:28 AM | | | | | PDT | | + + + + + | Respiratory Rate | 16 | 10/26/2016 10:28 AM | | | | | PDT | | + + + + + | Oxygen Saturation | 100% | 10/26/2016 10:28 AM | | | | | PDT | | + + + + + | Inhaled Oxygen | - | - | | | Concentration | | | | + + + + + | Weight | 71.2 kg (156 lb 15.5 | 10/26/2016 10:28 AM | | | | oz) | PDT | | + + + + + | Height | - | - | | + + + + + | Body Mass Index | 19.62 | 10/18/2016 10:05 AM | | | | | PDT | | + + + + + documented in this encounter Progress Notes Aspen Cummins FNP - 10/26/2016 10:15 AM PDT 10/26/2016 [facility] MD: Yari Garcia MD Primary Oncologist: Yari Garcia MD Diagnosis: AMML, primary refractory Transplant Date: 08/27/15 Donor: MM URD (DPB1 permissive antigen mismatch, male, [id number]) Identifying Data: Khurram Kelly is a 26 [...] his L ankle. He was evaluated at [place]' ED on 06/[address] angiogram negative [...] leukemia. He was referred to [facility] for further evaluation and man agement of his newly dx'd AML. Pt was admitted to [facility] on 05/26/15. Peripheral blood was [...] CD34, variable CD56, variable CD117, and dim [id number] mickey; promonocyte immunophenotype (70% by flow): CD11b, [...] total hip arthroplasty. He is currently day +426 s/p transplant, s/p 6 cycles of azacitidine and returns to clinic today for scheduled follow-up. Interim History: Khurram was most recently evaluated in [facility] by Yari Garcia MD on 10/12/16. Pred decrease to 20 mg po every other day alt wi th 10 mg po every other day. Then called 10/19/16 with increased rash, prednisone increased back to 20 mg po daily. Started fluconazole on 10/23/16. Over the last few weeks, he has been feeling poorly. Notes blurred/double vision with dry e ye and mild wind intolerance. See at [facility], prescribed PFAT but didn't feel they had a good ex planation of his ocular findings. Dry mouth, pills sometimes get stuck but no difficulty sw allowing. Feels he's eating well but losing weight. No further c/o N/V. Has not yet started beclomethasone as they couldn't afford the copay. No c/o diarrhea. Stools are formed but b reak apart easily. Up for most of the day. Not sleeping great at night. Typically sleeps f or a few hours then up, back to sleep for a few hours. Taking ambien 10 mg po qhs but doesn 't feel it helps him stay asleep. Review of Systems Constitutional: Positive for diaphoresis (palms, soles only) and weight loss. Negative for fever. HENT: Negative for headaches, congestion and sore throat. Eyes: Positive for blurred vision, double vision and discharge. Negative for photophobia, p ain and redness. Dry eye, mild wind intolerance Respiratory: Negative for cough, shortness of breath and wheezing. Cardiovascular: Positive for palpitations. Negative for chest pain, orthopnea and leg swell ing. Gastrointestinal: Negative for abdominal pain, blood in stool, diarrhea, heartburn, melena, nausea and vomiting. Genitourinary: Negative for dysuria and hematuria. Musculoskeletal: Positive for myalgias (legs fatigued). Negative for falls and joint pain. Skin: Positive for rash. Neurological: Positive for dizziness (postural lightheadedness) and tingling (sometimes in his feet). Negative for tremors. All other systems reviewed and are negative. Current Outpatient Prescriptions Medication Sig acyclovir 800 mg oral tablet Take 1 tablet by mouth two times daily. ALPRAZolam 0.5 mg oral tablet Take 1 tablet by mouth three times daily as needed. Indic ations: Anxiety (Patient not taking: Reported on 10/26/2016) fluconazole 200 mg oral tablet Take 2 tablets by mouth once daily for 7 days. Indicatio ns: fungal infection mycophenolate delayed release 360 mg oral tablet,delayed release (DR/EC) Take 2 tablets by mouth two times daily. Indications: gvhd omeprazole 20 mg oral capsule,delayed release(DR/EC) Take 1 capsule by mouth before babak akfast. predniSONE 10 mg oral tablet Take 2 tablets by mouth daily, alternating with 1 tablet d aily Indications: GvHD tacrolimus 1 mg oral capsule Take 1 [...] this visit. No Known Allergies Filed Vitals: 10/26/2016 10:28 AM Weight: 71.2 kg (156 lb 15.5 oz) BP: 129/92 Pulse: 125 Temp: 36.9 C (98.4 F) TempSrc: Oral Resp: 16 SpO2: 100% PainSc: 0 - Zero BMI: 19.62 kg/(m^2) Physical Exam Constitutional: Thin CM in NAD HENT: Head: Normocephalic and atraumatic. Oral mucosa dry, thrush to tongue Eyes: Conjunctivae are normal. Pupils are equal, round, and reactive to light. Cardiovascular: Regular rhythm, normal heart sounds and intact distal pulses. Tachycardia present. No murmur heard. Pulmonary/Chest: Effort normal and breath sounds normal. No respiratory distress. He has no wheezes. He has no rales. Abdominal: Soft. Bowel sounds are normal. He exhibits no distension. There is no tenderness . Musculoskeletal: He exhibits no edema. Neurological: He is alert. Skin: Skin is warm and dry. Rash (maculopapular rash to back, chest, abd and neck; faint ar eas of scaling to shoulders) noted. Psychiatric: Mood and affect normal. Vitals reviewed. Lab Results Component Value Date WBC 11.28 10/26/2016 HB 13.3 10/26/2016 HCT 39.8 10/26/2016 PLT 240 10/26/2016 MCV 93.9 10/26/2016 RDW 51.2 10/26/2016 Lab Results Component Value Date BICARB 24 10/26/2016 TBILI 0.3 10/26/2016 CA 9.2 10/26/2016 CL 105 10/26/2016 CR 0.84 10/26/2016 GLU 103 (H) 10/26/2016 AP 88 10/26/2016 TP 6.9 10/26/2016 BUN 12 10/26/2016 ALB 4.0 10/26/2016 AST 35 10/26/2016 NA 140 10/26/2016 K 3.4 10/26/2016 ALT 79 (H) 10/26/2016 Assessment/Plan: 1. 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 His most recent marrow studies completed 08/31/16 showed a normocellular marrow (30%) with trilineage hematopoiesis, marrow eosinophilia (~15%) and < 2% myeloid ramon ts. Karyotype 46,XY[20]. VNTR showed no detectable host cells. 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 CBC today with mild l eukocytosis with no evidence of disease by peripheral smear. Counts o/w WNL. 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 He initially responded but flared during taper. He also developed low-level nausea and abd discomfort concerning for GvHD, emp irically treated with oral non-absorbables with resolution. - He had tapered prednisone to 10 mg po daily when he developed a rash for which he was see n in the ED in [place] in late 01/21. Prednisone was increased back [...] N/V. - Presented on 09/25/16 with recurrent N/V, increasing rash. MMF ER started at 360 mg po BID , therapeutic tacrolimus. N/V resolved, rash persists with new areas of scaling. MMF increa sed to 720 mg po BID on 10/02/16 - Due to increased N/V and progression of rash, prednisone 20 mg po daily started 10/09/16. E GD/flex sig 10/17/16 showed path c/o Candidal esophagitis and mild GvHD of the rectum. --> adjust tacrolimus to maintain a trough level of 4-8 --> continue mycophenolate ER 720 mg po BID and prednisone 20 mg po daily --> continue triamcinolone ointment BID --> ok to defer beclomethasone at this time as his GI symptoms are well controlled 3. Infectious Disease: Afebrile without localizing s/s infection. He continues prophylacti c acyclovir and bactrim. With dx of Candidal esophagitis, started fluconazole 400 mg po afia y on 10/23/16. His most recent immune reconstitution panel collected 08/31/16 showed normal t otal T cells with relative decrease in CD4+ margarita cells, normal total NK cells, normal tota l B cells with relative decrease in non-switched memory B cells and minimal immune activatio n. CD4 count 420. Over due for post-transplant vaccines --> continue prophylactic antimicrobials --> continue fluconazole for a total of 21 days --> hold additional vaccines today until current medical/psychosocial issues resolved 4. Fluid, Electrolyte and Nutrition: Appetite is good, feels he's eating better overall bu t continues to lose weight; down another 14# over the last month. Adequate po fluid intake. No further c/o N/V/D. His electrolytes are reviewed and are within acceptable limits. --> continue to eat well with several meals/snacks throughout the day --> asked pt to keep a strict food diary over the next week with review by Zara Mccallum RD next visit --> maintain hydration with goal of 2L calorie containing fluids daily 5. Musculoskeletal: Hx of intermittent L hip pain. MRI 07/25/16 showed bilateral femoral hea d osteonecrosis with subchondral fracture and collapse of weightbearing L femoral head with suspected early cartilage disease. Underwent a total L hip arthroplasty on 09/07/16. Ambulatin g without assistive device. Pain well controlled with oxycontin BID. Most recently evaluated by Dr. Jeffers who feels he's doing very well post-surgery. --> Ortho recommended f/u Lobo Jeffers MD in 1 year, sooner prn 6. Cardiovascular: Tachycardic on arrival to clinic today. After deep breathing for pulmo nary exam, AP 136. Recovered to 102 with rest. Pt notes tachycardia with intermittent palpi tations. Occasional lightheadedness, anxiety with palpitations. EKG today showed sinus tach with AP 106, o/w WNL. His electrolytes are reviewed and are within acceptable limits. --> if tachycardia persists, TTE with consideration for initiation of beta blockade 7. Psychosocial: Pt reports ongoing anxiety related to his dx and treatment. Has stated jazlyn barrera's had a hard time moving forward with his life. Had been taking xanax with relief but stop ped a few weeks ago without tapering. He attended an AYA support group twice. Initially just met one other AYA survivor. The last time was a full support group but felt the meeting got off track and was monopolized by one patient with minimal guidance from the spectrographic analyst (no t the usual spectrographic analyst). He is willing to give it another try but thinks individual therap y may be best for him. --> continue to attend AYA support group as able; hopefully will be better with the regular spectrographic analyst --> restart xanax 1 mg po BID --> Kezia Stokes LCSW to meet with pt today to discuss options for individual therapy 7. Follow up --> RTC to f/u with me in 1 week --> labs at [facility] prior [facility] [address] Mailcode: [id number] [phone] documented in this enc ounter Plan of [...] | 2018 | Visit | Malignancy | [facility] | | | | | | [facility] | | | | | | [place], [place] | | | | | | [address] | | | | | | [phone] | | | | | | | | +--------+---------+ + + + documented as of this encounter Procedures + +--------+ + + + | Procedure Name | Priori | Date/Time | Associated Diagnosis | Comments | | | ty | | | | + +--------+ + + + | 12 LEAD ECG | Routin | 10/26/2016 | Tachycardia | Results for this | | | e | 11:36 AM | | procedure are in the | | | | PDT | | results section. | + +--------+ + + + documented in this encounter Results TACROLIMUS, WHOLE BLOOD (11/02/2016 9:56 AM PDT) + +-------+ + + + | Component | Value | Ref Range | Performed | Pathologist | | | | | At | Signature | + +-------+ + + + | TACROLIMUS | 7.2 | 5.0 - 15.0 | [facility] | [...] | Test performed by immunoassay using Blanton Leave Coordinator i2000. . | [facility] | | Samples [...] + + + + + | [facility] | [address] | [place] [address] | | | SPECIAL KOLE | [address] | | | | IMM + COAG | | | | + + + + + LDH TOTAL, PLASMA (11/02/2016 9:56 AM PDT) + +---------+ + + + | Component | Value | Ref Range | Performed | Pathologist | | | | | At | Signature | + +---------+ + + + | LD TOTAL, | 176 | <=250 U/L | [facility] | | [...] [facility] | [address] | [place] [address] | | | SERVICES, CORE | [address] | | | + + + + + BILIRUBIN DIRECT (11/02/2016 9:56 AM PDT) + +---------+ + + + [...] + +---------+ + + + | REI GARVIN | No Hemo | | [facility] | [...] [facility] | [address] | [place] [address] | | | SERVICES, INDRA | [address] | | | + + + + + URIC ACID, PLASMA (11/02/2016 9:56 AM PDT) + +-------+ + + + [...] [facility] | [address] | [place] [address] | | | SERVICES, CORE | [address] | | | + + + + + PHOSPHORUS, PLASMA (11/02/2016 9:56 AM PDT) + +-------+ + + + [...] | + + + + + | [facility] | [address] | [place] [address] | | | SERVICES, CORE | [address] | | | + + + + + MAGNESIUM, PLASMA (11/02/2016 9:56 AM PDT) + +-------+ + + + | Component | Value | Ref Range | Performed | Pathologist | | | | | At | Signature | + +-------+ + + + | MAGNESIUM,P | 2.0 | 1.8 - 2.5 mg/dL | [facility] | | | LASMA | | | [...] [facility] | [address] | [place] [address] | | | KOLE, INDRA | [address] | | | + + + + + COMPLETE METABOLIC SET (NA,K,CL,CO2,BUN,CREAT,GLUC,CA,AST,ALT,BILI TOTAL,ALK PHOS,ALB,PROT TOTAL) (11/02/2016 9:56 AM PDT) + +---------+ + + + | Component | Value | Ref Range | Performed | Pathologist | | | | | At | Signature | + +---------+ + + + | GLUCOSE, | 97 | 60 - 99 mg/dL | [facility] | | | PLASMA | | | LABORATORY | | | (LAB) | | | SERVICES, | | | | | | CORE | | + +---------+ + + + | BUN, PLASMA | 11 | 6 - 20 mg/dL | [facility] | | | (LAB) | | | LABORATORY | | | | | | SERVICES, | | | | | | CORE | | + +---------+ + + + | CREATININE | 0.72 | 0.70 - 1.30 | [facility] | | | PLASMA | | mg/dL | LABORATORY | | | (LAB) | | | SERVICES, | | | | | | CORE | | + +---------+ + + + | EGFR | >60 | >60 mL/min | [facility] | | | - | | | LABORATORY | | | CROATIAN | | | SERVICES, | | | | | | CORE | | + +---------+ + + + | EGFR NON | >60 | >60 mL/min | [facility] | | | -JOANNE | | | LABORATORY | | | RICAN | | | SERVICES, | | | | | | CORE | | + +---------+ + + + | SODIUM, | 141 | 136 - 145 | [facility] | [...] +---------+ + + + | CHLORIDE, | 107 | 97 - 108 mmol/L | [facility] | | | PLASMA | | | LABORATORY | | | (LAB) | | | SERVICES, | | | | | | CORE | | + +---------+ + + + | TOTAL CO2, | 29 | 21 - 32 mmol/L | [facility] | | | PLASMA | | | LABORATORY | | | (LAB) | | | SERVICES, | | | | | | CORE | | + +---------+ + + + | CALCIUM, | 9.4 | 8.6 - 10.2 | [facility] | | | PLASMA | | mg/dL | LABORATORY | | | (LAB) | | | SERVICES, | | | | | | CORE | | + +---------+ + + + | CALCIUM(ALB | 9.6 | 8.6 - 10.2 | [facility] | [...] + + + | ALK PHOS | 109 | 53 - 128 U/L | [facility] [...] + + + | ALT (SGPT) | 201 (H) | <=60 U/L | [facility] | | | | | | LABORATORY | | | | | | SERVICES, | | | | | | CORE | | + +---------+ + + + | ANION GAP | 5 | mmol/L | [facility] | | | | | | LABORATORY | | | | | | SERVICES, | | | | | | CORE | | + +---------+ + + + | ANION | 5 | 4 - 11 mmol/L | [facility] [...] the MDRD equation recommended by the | [facility] | | National Kidney Disease Education Program. [...] + + + + + | [facility] | [address] | [place] [address] | | | INDRA SHARIF | [address] | | | + + + + + 12 LEAD ECG (10/26/2016 11:36 AM PDT) + + + + + + | Component | Value | Ref Range | Performed | Pathologist | | | | | At | Signature | + + + + + + | VENTRICULAR | 106 | bpm | [facility] | | | RATE | | | OF | | | | | | CARDIOLOGY | | + + + + + + | ATRIAL RATE | 106 | ms | [facility] | | | | | | OF | | | | | | CARDIOLOGY | | + + + + + + | P-R | 136 | ms | [facility] | | | INTERVAL | | | OF | | | | | | CARDIOLOGY | | + + + + + + | P AXIS | 70 | deg | [facility] | | | | | | OF | | | | | | CARDIOLOGY | | + + + + + + | QRS | 96 | ms | [facility] | | | DURATION | | | OF | | | | | | CARDIOLOGY | | + + + + + + | QT | 410 | ms | [facility] | | | | | | OF | | | | | | CARDIOLOGY | | + + + + + + | QTCB | 545 | ms | [facility] | | | | | | OF | | | | | | CARDIOLOGY | | + + + + + + | R AXIS | -48 | deg | [facility] | | | | | | OF | | | | | | CARDIOLOGY | | + + + + + + | T AXIS | 11 | deg | [facility] | | | | | | OF | | | | | | CARDIOLOGY | | + + + + + + | ECG | SINUS TACHYCARDIA | | [facility] | | | IMPRESSION | | | OF | | | | | | CARDIOLOGY | | + + + + + + | ECG | PROMINENT U WAVE WITH | | [facility] | | | IMPRESSION | PROLONGED QT-U COMPLEX- | | OF | | | | ABNORMAL ECG - | | CARDIOLOGY | | + + + + + + | ECG | Electronically signed | | [facility] | | | IMPRESSION | by: STAN MCCLELLAN | | OF | | | | 04-20-2017 21:18:15 | | CARDIOLOGY | | + + [...] DEPT OF | [address] | [place], [place] | | | CARDIOLOGY | [address] | [address] | | + + + + + documented in this encounter Visit Diagnoses + + | Diagnosis | + + | 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HCC) - Primary Bone marrow replaced by | | transplant | + + | Tachycardia Tachycardia, unspecified | + + documented in this encounter"
--- OUTSIDE RECORDS SUMMARY | ~2019-05-17 | XMS | Encounter Summary ---
Demographics + + + | Address | [address] | | | [place] [address] | + + + | Home Phone | | + + + | Preferred Language | Unknown | + + + | Marital Status | | + + + | Baptism Affiliation | SPI | + + + [...] Team Providers + +------+ + | Care Child Protective Investigator Name | Role | Phone | + +------+ + | Zayda Hinton | PCP | | + +------+ + Encounter Details +--------+ + + + + | Date | Type | Department | Care Team | Description | +--------+ + + + + | 10/18/ | Pharmacy | Specialty Pharmacy | | | | 2016 | Visit | Services [address] | | | | | | [address] | | | | | | [place], [place] | | | | | | [address] | | | | | | [phone] | | | +--------+ + + + [...] 2019 | Visit | Malignancy | [address] | | | | | | [address] | | | | | | [place], [place] | | | | | | [address] | | | | | | [phone] | | | | | | | | +--------+---------+ + + + documented as of this encounter Visit Diagnoses Not on filedocumented in this encounter"
--- OUTSIDE RECORDS SUMMARY | ~2019-05-17 | XMS | Encounter Summary ---
Demographics + + + | Address | [address] | | | [place] [address] | + + + | Home Phone | | + + + | Preferred Language | Unknown | + + + | Marital Status | | + + + | Orthodox Affiliation | SPI | + + [...] Team Providers + +------+ + | Care Assembly Repairer Name | Role | Phone | + +------+ + | Zayda Hinton | PCP | | + +------+ + Encounter Details +--------+ + + + + | Date | Type | Department | Care Team | Description | +--------+ + + + + | 11/10/ | Pharmacy | [facility] [facility] | | | | 2016 | Visit | Hematologic | | | | | | Malignancies at | | | | | | [facility] | | | | | | [address] | | | | | | [place] Mailcode: | | | | | | [address] [facility] | | | | | | [place], | | | | | | [place] [address] | | | | | | [phone] | | | +--------+ + + + [...] [address] | | | | | | [place], [place] | | | | | | [address] | | | | | | [phone] | | | | | | | | +--------+---------+ + + + documented as of this encounter Visit Diagnoses Not on filedocumented in this encounter"
--- OUTSIDE RECORDS SUMMARY | ~2019-05-17 | XMS | Encounter Summary ---
Demographics + + + | Address | [address] | | | [place] [address] | + + + | Home Phone [...] Author | [facility] | + + + | Organization | [facility] | + + + | Address | Unknown | + + + | Phone | Unavailable | + + + Support + + +---------+ + | Name | Relationship | Address | Phone | + + +---------+ + | Gabriel Kelly | ECON | Unknown | | + + +---------+ + Care Team Providers + +------+ + | Care Electric Welder Name | Role | Phone | + [...] | 2018 | | Hematologic | [address] | | | | | Malignancies at | [facility] | | | | | [address] | [place], [place] | | | | | [address] | [address] | | | | | [facility] Mailcode: | [phone] | | | | | [address] | | | | | | [facility], | | | | | | [place] [address] | | | | | | [phone] | | | +--------+--------+ + + + [...] 2019 | Visit | Malignancy | [address] | | | | | | [address] | | | | | | [place] | | | | | | [address] | | | | | | [phone] | | | | | | | | +--------+---------+ + + + documented as of this encounter Visit Diagnoses Not on filedocumented in this encounter"
--- OUTSIDE RECORDS SUMMARY | ~2019-05-17 | XMS | Encounter Summary ---
Demographics + + + | Address | [address] | | | [place] [address] | + + + | Home Phone | | + + + | Preferred Language | Unknown | + + + | Marital Status | | + + + | Hoahaoism Affiliation | SPI | + + + | Race | White | + + + | Ethnic Group | Not or | + + + Author + + + | Author | [facility] | + + + | Organization | [facility] | + + + | Address | Unknown | + + + | Phone | Unavailable | + + + Support + + +---------+ + | Name | Relationship | Address | Phone | + + +---------+ + | Gabriel Kelly | ECON | Unknown | | + + +---------+ + Care Team Providers + +------+ + | Care Admissions Consultant Name | Role | Phone | [...] | | | | | Malignancies at [facility] | [address] | | | | | [address] | [place], [place] | | | | | [address] Mailcode: | [address] | | | | | [address] | [phone] | | | | | [place], | | | | | | [place] [address] | | | | | | [phone] | | | +--------+ + + + [...] [address] | | | | | | [place], [place] | | | | | | [address] | | | | | | [phone] | | | | | | | | +--------+---------+ + + + documented as of this encounter Visit Diagnoses Not on filedocumented in this encounter"
--- OUTSIDE RECORDS SUMMARY | ~2019-05-17 | XMS | Encounter Summary ---
Demographics + + + | Address | [address] | | | [place] [address] | + + + | Home Phone [...] + + + | Author | [facility] | + + + | Organization | [facility] | + + + | Address | Unknown | + + + | Phone | Unavailable | + + + Support + + +---------+ + | Name | Relationship | Address | Phone | + + +---------+ + | Gabriel Kelly | ECON | Unknown | | + + +---------+ + Care Team Providers + +------+ + | Care Psychiatric Np Name | Role | Phone | + [...] | +--------+ + + + + | 11/23/ | Telephone | Center for | Aspen Cummins FNP | Medication | | 2017 | | Hematologic | [address] | Adjustment (IST Tac) | | | | Malignancies at | [address] | | | | | [facility] | [place], [place] | | | | | [address] | [address] | | | | | [address] Mailcode: | [phone] | | | | | [facility] | | | | | | [facility] [place], | | | | | | [place] [address] | | | | | | [phone] | | | +--------+ + + + [...] 2019 | Visit | Malignancy | [address] [facility] | | | | | | [address] | | | | | | [place] | | | | | | [address] | | | | | | [phone] | | | | | | | | +--------+---------+ + + + documented as of this encounter Visit Diagnoses Not on filedocumented in this encounter"
--- OUTSIDE RECORDS SUMMARY | ~2019-05-17 | XMS | Encounter Summary ---
Demographics + + + | Address | [address] | | | [place] [address] | + + + | Home Phone | | + + + | Preferred Language | Unknown | + + + | Marital Status | | + + + | Mormonism Affiliation | SPI | + + + | Race | White | + + + | Ethnic Group | Not or | + + + Author + + + | Author | [facility] | + + + | Organization | [facility] | + + + | Address | Unknown | + + + | Phone | Unavailable | + + + Support + + +---------+ + | Name | Relationship | Address | Phone | + + +---------+ + | Gabriel Kelly | ECON | Unknown | | + + +---------+ + Care Team Providers + +------+ + | Care Reimbursement Director Name | Role | Phone | [...] Hematology | Diagnoses | Cook, | [facility] [facility] | | | | Malignancy | Acute | Yari Jones MD | [facility] [address] | | | | | myelomonocyt | [address] | [address] | | | | | ic leukemia, | [address] | [address] | | | | | not having | [address] | Mailcode: | | | | | achieved | [place], [place] | [id number] | | | | | remission | [address] | [place] | | | | | | Phone: | [facility] | | | | | Procedures | [phone] | [place], [place] | | | | | Post BMT | Fax: | [address] | | | | | Auth to | [phone] | Phone: | | | | | included | | [phone] | | | | | facility, | | Fax: | | | | | diagnostics, | | [phone] | | | | | office | | | | | | | visits and | | | | | | | surgery | | | +--------+---------+ + + + + Encounter Details +--------+---------+ + + + | Date | Type | Department | Care Team | Description | +--------+---------+ + + + | 05/24/ | Office | Center for | Aspen Cummins FNP | S/P allogeneic bone | | 2017 | Visit | Hematologic | [address] [facility] | marrow transplant | | | | Malignancies at | [facility] | (HCC) (Primary Dx) | | | | [facility] | [place], [place] | | | | | [address] [facility] | [address] | | | | | [facility] Mailcode: | [phone] | | | | | [facility] | | | | | | [facility] [place], | | | | | | [place] [address] | | | | | | [phone] | | | +--------+---------+ + + + [...] + + + | Blood Pressure | 118/59 | 05/24/2017 10:54 AM | | | | | PST | | + + + + + | Pulse | 67 | 05/24/2017 10:54 AM | | | | | PST | | + + + + + | Temperature | 36.7 C (98.1 F) | 05/24/2017 10:54 AM | | | | | PST | | + + + + + | Respiratory Rate | 20 | 05/24/2017 10:54 AM | | | | | PST | | + + + + + | Oxygen Saturation | 97% | 05/24/2017 10:54 AM | | | | | PST | | + + + + + | Inhaled Oxygen | - | - | | | Concentration | | | | + + + + + | Weight | 78.2 kg (172 lb 6.4 | 05/24/2017 10:54 AM | | | | oz) | PST | | + + + + + | Height | - | - | | + + + + + | Body Mass Index | 21.55 | 04/02/2017 1:46 PM | | | | | PDT | | + + + + + documented in this encounter Patient Instructions Patient Instructions Aspen Cummins FNP - 05/24/2017 11:15 AM PST1. Taper tacrolimus as fo llows: - on 05/25/17, decrease to 1 mg by mouth every other morning alternating with 0.5 mg by mo uth every other morning; continue 0.5 mg by mouth every evening - on 06/08/17, decrease to 0.5 mg by mouth twice daily - on 06/22/17, decrease to 0.5 mg by mouth every morning, 0.5 mg by mouth every other even ing - on 07/06/17, decrease to 0.5 mg by mouth every morning - on 07/20/17, decrease to 0.5 mg by mouth every other morning - on 08/03/17, stop tacrolimus 2. Flu shot today; we'll give your next vaccines when you're here next month 3. Continue to eat well, drink at least 2 liters of fluid every day 4. Return to clinic to follow up with either Yari Garcia MD or me in 1 month or sooner as needed. documented in this encounter Progress Notes Aspen Cummins FNP - 05/24/2017 11:15 AM PST 05/24/2017 [facility] Primary CHM MD: Yari Garcia MD Primary Oncologist: Yari Garcia MD Diagnosis: AMML, primary refractory Transplant Date: 08/27/15 Donor: MMURD (DPB1 permissive antigen mismatch, male, [id number]) Identifying Data: Khurram eKlly is a 26 y.o. CM with a [...] his L ankle. He was evaluated at [facility] ED on 06/[address] angiogram negative [...] acute myelomonocytic leukemia. He was referred to [facility] for further evaluation and man agement of his newly dx'd AML. Pt was admitted to [facility] on 05/26/15. Peripheral blood was sent [...] CD34, variable CD56, variable CD117, and dim [id number] mickey; promonocyte immunophenotype (70% by flow): CD11b, [...] hip arthroplasty. He is currently 1 year, 9 monthss/p transplant, s/p 6 cyclesof azacitidine and returns to clinic today for scheduled follow-up. Interim History: Khurram was most recently evaluated in our [facility] by me on 04/19/17. Feeling well today. URI that he had at his last visit resolv ed quickly but then developed a cough after his son came home from school sick. Also now res olved. Energy and stamina improving. States he feels the best he's felt since his transplan t. Appetite is good, feels he's eating well consistently. No c/o N/V/D. Intermittent ocular irritation persists with vision changes. He's been evaluated by his [facility] map, prescribed glasses and gtts. No c/o oral sensitivity, skin change, SOB/D OE or pain. Review of Systems Constitutional: Negative for chills, fever and malaise/fatigue. HENT: Negative for congestion and sore throat. Respiratory: Positive for cough (intermittent throat clearing cough). Negative for shortnes s of breath and wheezing. Cardiovascular: Negative for chest pain and leg swelling. Gastrointestinal: Negative for abdominal pain, diarrhea, nausea and vomiting. Genitourinary: Negative for dysuria. Musculoskeletal: Negative for joint pain and myalgias. Skin: Negative for itching and rash. Neurological: Negative for dizziness, tingling, tremors and weakness. All other systems reviewed and are negative. Current Outpatient Prescriptions Medication Sig acyclovir 800 mg oral tablet Take 1 tablet by mouth two times daily. albuterol 90 mcg/actuation inhalation HFA aerosol inhaler Inhale 1-2 puffs by mouth ne ry four hours as needed. ALPRAZolam 0.5 mg oral tablet TAKE TWO TABLETS BY MOUTH THREE TIMES A DAY NEEDED FOR ANXIETY mycophenolate delayed release 360 mg oral tablet,delayed release (DR/EC) Take 2 tablets by mouth two times daily. Indications: gvhd predniSONE 10 mg oral tablet Take 1 tablet (10 mg) by mouth daily tacrolimus 0.5 mg oral capsule Take 1 mg by mouth every morning and 0.5 mg by mouth ne ry evening. Indications: GVHD tacrolimus 1 mg oral capsule Take 1 mg by mouth every morning and 0.5 mg by mouth every evening. Indications: GVHD No current facility-administered medications for this visit. No Known Allergies Filed Vitals: 05/24/2017 10:54 AM Weight: 78.2 kg (172 lb 6.4 oz) BP: 118/59 Pulse: 67 Temp: 36.7 C (98.1 F) TempSrc: Oral Resp: 20 SpO2: 97% PainSc: 0 - Zero BMI: 21.55 kg/(m^2) Physical Exam Constitutional: He is well-developed, [...] reviewed. Lab Results Component Value Date WBC 10.4 05/24/2017 HB 13.2 05/24/2017 HCT 38.9 05/24/2017 PLT 282 05/24/2017 MCV 95.6 05/24/2017 RDW 41.9 04/19/2017 Lab Results Component Value Date BICARB 25 05/24/2017 TBILI 0.5 05/24/2017 CA 9.5 05/24/2017 CL 104 05/24/2017 CR 0.8 05/24/2017 GLU 104 (H) 05/24/2017 AP 67 05/24/2017 TP 6.7 05/24/2017 BUN 9 05/24/2017 ALB 3.6 05/24/2017 AST 47 (H) 05/24/2017 NA 139 05/24/2017 K 4.4 05/24/2017 ALT 42 05/24/2017 Assessment/Plan: 1. 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 His most recent marrow studies completed 08/31/16 showed a norm ocellular marrow (30%) with trilineage hematopoiesis, marrow eosinophilia (~15%) and <2% m yeloid blasts. Karyotype 46,XY[20]. VNTR showed no detectable host cells. 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 Peripheral blood cou nts WNL with no evidence of disease by peripheral smear. --> continue CBC q4 weeks and prn --> no additional marrow studies indicated providing peripheral counts remain stable 2. 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 He initially responded but flared during taper. He also developed low-level nausea and abd discomfort concerning for GvHD, emp irically treated with oral non-absorbables with resolution. - He had tapered prednisone to 10 mg po daily when he developed a rash for which he was see n in the ED in [place] in late 01/21. Prednisone was increased back [...] fluconazole with resolution of upper GI symptoms -->TODAY: LFTs WNL, asymptomatic aside from mild intermittent dry eye. Continue MMF ER, tacrolimus, prednisone 10 mg po daily. PFTs completed today due to recent URI, show improve ment in all indices from pre-transplant indices. --> begin tacrolimus taper as follows - on 05/25/17, decrease to 1 mg po qoAM alt with 0.5 mg po qoAM; continue 0.5 mg po qPM - on 06/08/17, decrease to 0.5 mg po BID - on 06/22/17, decrease to 0.5 mg po qAM, 0.5 mg po qoPM - on 07/06/17, decrease to 0.5 mg po daily - on 07/20/17, decrease to 0.5 mg po every other day - on 08/03/17, d/c tacrolimus --> continue to f/u with ophthalmology per their recommendations --> continue to avoid ETOH, acetaminophen and nephrotoxins Ped Pre Spirometry Latest Ref Rng & Units 05/24/2017 09/01/2016 08/09/2015 FVC PRE 6.22 L 7.23 6.71 6.98 FVC PRE (%REF) % 116 106 110 FEV1 PRE 5.06 L 5.50 5.28 5.13 FEV1 PRE (%REF) % 108 102 99 FEV1/FVC PRE 83 % 76 79 73 FEV1/FVC PRE (%REF) % 91 94 88 TTJ40-17% PRE 5.02 L/sec 4.74 4.64 4.12 VRL91-48% PRE (%REF) % 94 91 79 PEF PRE 11.16 L/sec 9.77 11.12 8.89 PEF PRE (%REF) % 87 98 79 3. Infectious Disease: Afebrile without localizing s/s infection. He continues prophylact ic acyclovir alone. Completed a 3-week course of fluconazole 400 mg po daily on 11/12/16 for f indings of esophageal candidiasis His most recent immune reconstitution panel collected showed normal total T cells with relative decrease in CD4+ margarita cells, normal total NK cells, normal total B cells with relative decrease in non-switched memory B cells and min imal immune activation. CD4 count 420. Continues post-transplant vaccines -->continue acyclovir until off all IST --> annual inactivated influenza vaccine today -->additional vaccines next visit --> repeat immune reconstitution panel in conjunction with his 2 year anniversary 4. Fluid, Electrolyte and Nutrition: Appetite back to baseline after resolution of URI. W eight back up 7# in the last month. His electrolytes are reviewed and are within [...] severe R hip pain. Evaluated by Dr. Jeffers on 04/02/17; per pt report, beth castellanos there may be a hairline fracture causing his pain. Required a cane for ambulation and un able to weight bear until a few days ago. Now asymptomatic. No longer requiring analgesics. -->continue to f/u with Dr. Jeffers per his recommendations 6. Psychosocial: Hx anxiety, well controlled with current xanax dosing. Back in [place] on now, different set of life stressors but feels he's handling them well. His is now d osing his xanax, continues 1 mg po TID. --> cognitive behavioral therapy and peer support groups as able --> continue xanax 1 mg po TID; if pt decides he wants to taper off, recommended very slow taper by decreasing to a total of five 0.5 mg tabs/day for several weeks, then four, etc. 7. Follow up -->RTC to f/u with either Yari Garcia MD or me in 1 month, sooner prn [facility] AT [address] Mailcode: [place] [id number] documented in this enc ounter Plan of [...] 2018 | Visit | Malignancy | [address] [facility] | | | | | | [address] | | | | | | [place], [place] | | | | | | [address] | | | | | | [phone] | | | | | | | | +--------+---------+ + + + documented as of this encounter Visit Diagnoses + + | Diagnosis | + + | 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
--- OUTSIDE RECORDS SUMMARY | ~2019-05-17 | XMS | Encounter Summary ---
Demographics + + + | Address | [address] | | | [place] [address] | + + + | Home Phone | | + + + | Preferred Language | Unknown | + + + | Marital Status | | + + + | Church Affiliation | SPI | + + + | Race | White | + + + | Ethnic Group | Not or | + + + Author + + + | Author | [facility] | + + + | Organization | [facility] | + + + | Address | Unknown | + + + | Phone | Unavailable | + + + Support + + +---------+ + | Name | Relationship | Address | Phone | + + +---------+ + | Gabriel Kelly | ECON | Unknown | | + + +---------+ + Care Team Providers + +------+ + | Care Dental Equipment Technician Name | Role | Phone | + +------+ + | Zayda Hinton | PCP | | + +------+ + Encounter Details +--------+ + + + + | Date | Type | Department | Care Team | Description | +--------+ + + + + | 05/15/ | Pharmacy | Specialty Pharmacy | | | | 2015 | Visit | Services [address] | | | | | | [address] | | | | | | [place], [place] | | | | | | [address] | | | | | | [phone] | | | +--------+ + + + [...] 2019 | Visit | Malignancy | [address] [facility] | | | | | | [address] | | | | | | [place], [place] | | | | | | [address] | | | | | | [phone] | | | | | | | | +--------+---------+ + + + documented as of this encounter Visit Diagnoses Not on filedocumented in this encounter"
--- OUTSIDE RECORDS SUMMARY | ~2019-05-17 | XMS | Encounter Summary ---
Demographics + + + | Address | [address] | | | [place] [address] | + + + | Home Phone [...] Team Providers + +------+ + | Care Jail Officer Name | Role | Phone | + +------+ + | Zyada Hinton | PCP | | + +------+ + Encounter Details +--------+ + + + + | Date | Type | Department | Care Team | Description | +--------+ + + + + | 11/10/ | Pharmacy | [facility] | | | | 2016 | Visit | Hematologic | | | | | | Malignancies at | | | | | | [facility] | | | | | | [address] | | | | | | [place] Mailcode: | | | | | | [facility] | | | | | | [place], | | | | | | [place] [address] | | | | | | [phone] | | | +--------+ + + + [...] [address] | | | | | | [place], [place] | | | | | | [address] | | | | | | [phone] | | | | | | | | +--------+---------+ + + + documented as of this encounter Visit Diagnoses Not on filedocumented in this encounter"
--- OUTSIDE RECORDS SUMMARY | ~2019-05-17 | XMS | Encounter Summary ---
Demographics + + + | Address | [address] | | | [place] [address] | + + + | Home Phone | | + + + | Preferred Language | Unknown | + + + | Marital Status | | + + + | Bahai Affiliation | SPI | + + + [...] Team Providers + +------+ + | Care Flavor Tank Tender Name | Role | Phone | + +------+ + | Zayda Hinton | PCP | | + +------+ + Encounter Details +--------+ + + + + | Date | Type | Department | Care Team | Description | +--------+ + + + + | 08/06/ | Pharmacy | Specialty Pharmacy | | | | 2015 | Visit | Services [address] | | | | | | [address] | | | | | | [place], [place] | | | | | | [address] | | | | | | [phone] | | | +--------+ + + + [...] [place] | | | | | | [address] | | | | | | [phone] | | | | | | | | +--------+---------+ + + + documented as of this encounter Visit Diagnoses Not on filedocumented in this encounter"
--- OUTSIDE RECORDS SUMMARY | ~2019-05-17 | XMS | Encounter Summary ---
Demographics + + + | Address | [address] | | | [place] [address] | + + + | Home Phone [...] Team Providers + +------+ + | Care Ob/Gyn Physician Name | Role | Phone | + +------+ + | Zayda Hinton | PCP | | + +------+ + Encounter Details +--------+ + + + + | Date | Type | Department | Care Team | Description | +--------+ + + + + | 05/29/ | Pharmacy | Specialty Pharmacy | | | | 2015 | Visit | Services [address] | | | | | | [address] | | | | | | [place], [place] | | | | | | [address] | | | | | | [phone] | | | +--------+ + + + [...] 2019 | Visit | Malignancy | [address] [facility] | | | | | | [address] | | | | | | [place], [place] | | | | | | [address] | | | | | | [phone] | | | | | | | | +--------+---------+ + + + documented as of this encounter Visit Diagnoses Not on filedocumented in this encounter"
--- OUTSIDE RECORDS SUMMARY | ~2019-05-17 | XMS | Encounter Summary ---
Demographics + + + | Address | [address] | | | [place] [address] | + + + | Home Phone [...] Team Providers + +------+ + | Care Diplomatic Courier Name | Role | Phone | + +------+ + | Zayda Hinton | PCP | | + +------+ + Encounter Details +--------+ + + + + | Date | Type | Department | Care Team | Description | +--------+ + + + + | 08/29/ | Pharmacy | Specialty Pharmacy | | | | 2016 | Visit | Services [address] | | | | | | [address] | | | | | | [place], [place] | | | | | | [address] | | | | | | [phone] | | | +--------+ + + + [...] | Visit | Malignancy | [address] [facility] | | | | | | [address] | | | | | | [place], [place] | | | | | | [address] | | | | | | [phone] | | | | | | | | +--------+---------+ + + + documented as of this encounter Visit Diagnoses Not on filedocumented in this encounter"
--- OUTSIDE RECORDS SUMMARY | ~2019-05-17 | XMS | Encounter Summary ---
Demographics + + + | Address | [address] | | | [place] [address] | + + + | Home Phone | | + + + | Preferred Language | Unknown | + + + | Marital Status | | + + + | Latter-Day Affiliation | SPI | + + + | Race | White | + + + | Ethnic Group | Not or | + + + Author + + + | Author | [facility] | + + + | Organization | [facility] | + + + | Address | Unknown | + + + | Phone | Unavailable | + + + Support + + +---------+ + | Name | Relationship | Address | Phone | + + +---------+ + | Gabriel Kelly | ECON | Unknown | | + + +---------+ + Care Team Providers + +------+ + | Care Mechanical Artist Name | Role | Phone | + +------+ + | No Pcp Per Patient | PCP | Unavailable | + +------+ + Reason for Visit +--------+ + | Reason | Comments | +--------+ + | Rash | | +--------+ + | Nausea | vomiting 1 time every few days | +--------+ + Encounter Details +--------+ + + + + | Date | Type | Department | Care Team | Description | +--------+ + + + + | 09/22/ | Telephone | Center for | Ravi Jenkins FNP | Rash; Nausea | | 2017 | | Hematologic | [address] | (vomiting 1 time | | | | Malignancies at | [address] [place], | every few days) | | | | [facility] | [place] [address] | | | | | [address] [facility] [address] | [phone] | | | | | [facility] Mailcode: | | | | | | [id number] [place] | | | | | | [facility] [place], | | | | | | [place] [address] | | | | | | [phone] | | | +--------+ + + + [...] 2019 | Visit | Malignancy | [address] [facility] | | | | | | [address] | | | | | | [place] | | | | | | [address] | | | | | | [phone] | | | | | | | | +--------+---------+ + + + documented as of this encounter Visit Diagnoses Not on filedocumented in this encounter"
--- OUTSIDE RECORDS SUMMARY | ~2019-05-17 | XMS | Encounter Summary ---
Demographics + + + | Address | [address] | | | [place] [address] | + + + | Home Phone | | + + + | Preferred Language | Unknown | + + + | Marital Status | | + + + | Christian Affiliation | SPI | + + + | Race | White | + + + | Ethnic Group | Not or | + + + Author + + + | Author | [facility] | + + + | Organization | [facility] | + + + | Address | Unknown | + + + | Phone | Unavailable | + + + Support + + +---------+ + | Name | Relationship | Address | Phone | + + +---------+ + | Gabriel Kelly | ECON | Unknown | | + + +---------+ + Care Team Providers + +------+ + | Care Drilling Rig Operator Name | Role | Phone | + +------+ + | Pending Pcp Addition | PCP | Unavailable | + +------+ + Reason for Visit + + + | Reason | Comments | + + + | Lab Draw | [facility] | + + + | Chemotherapy | [...] | ic leukemia, | [address] | [address]ina | | | | | not having | [address] | [address] | | | | | achieved | [place], [place] | Rd Mailcode: | | | | | remission | [address] | [id number] | | | | | Procedures | Phone: | [place] | | | | | [place] | [phone] | Pavilion | | | | | AZACITIDINE | Fax: | [place], [place] | | | | | INJECTION, 1 | [phone] | [address] | | | | | [place] | | Phone: | | | | | [facility],IV | | [phone] | | | | | INFSN,1 HR | | Fax: | | | | | [place] [facility],[place] | | [phone] | | | | | INFSN,ADDL | | | | | | | HR [facility] | | | +--------+---------+ + + + + Encounter Details +--------+ + + + + | Date | Type | Department | Care Team | Description | +--------+ + + + + | 11/30/ | Clinical | [facility] for | | Lab Draw | | 2016 | Support | Hematologic | | ([facility]); | | | Staff | [facility] | | Chemotherapy | | | | [address] | | ([facility]) | | | | [place] [place] Mailcode: | | | | | | [id number] | | | | | | [place], | | | | | | [place] [address] | | | | | | [phone] | | | +--------+ + + + [...] + + + | Blood Pressure | 133/86 | 12/01/2015 8:40 AM | | | | | PDT | | + + + + + | Pulse | 70 | 12/01/2015 8:40 AM | | | | | PDT | | + + + + + | Temperature | 36.8 C (98.3 F) | 12/01/2015 8:40 AM | | | | | PDT | | + + + + + | Respiratory Rate | 18 | 12/01/2015 8:40 AM | | | | | PDT | | + + + + + | Oxygen Saturation | 100% | 12/01/2015 8:40 AM | | | | | PDT | | + + + + + | Inhaled Oxygen | - | - | | | Concentration | | | | + + + + + | Weight | 85.4 kg (188 lb 4.4 | 12/01/2015 8:40 AM | | | | oz) | PDT | | + + + + + | Height | - | - | | + + + + + | Body Mass Index | 24.34 | 08/18/2015 4:35 PM | | | | | PST | | + + + + + documented in this encounter Progress Honey Murray, October, RN - 12/01/2015 8:49 AM PDT Chemotherapy Nurse Note Name: Khurram Navaleland Date: 12/01/2015 Physician: Jose Allergies: Khurram is allergic to chlorhexidine towelette. Assessment Pain: Reports lower back pain /10. Per patient, it is from his BMBX last week. Fever or chills: Denies Fatigue or sleep disturbance: Denies Dizziness: Denies Neuropathy: Denies Mucositis: Denies mouth sores/pain. Reports taste change and ridging along sides of tongue . Using saline rinses several times per day. Dyspnea, cough: Denies Signs of bleeding: Denies Nausea, vomiting or loss of appetite: Reports nausea for the last few days. Reports he has been taking Zofran 8 mg BID with breakthrough nausea. He does not have a prescription for an y other antiemetics. Reports adequate appetite. Fluid intake: Reports drinking at least 2 liters of fluid daily. 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 No changes per patient. Was reminded to restart Kenalog cream as instructed. Labs: Lab Results Component Value Date WBC 6.3 11/29/2015 HB 12.7* 11/29/2015 HCT 37.1* 11/29/2015 PLT 72* 11/29/2015 BUN 19 11/29/2015 CR 0.9 11/29/2015 For Treatment Done in Clinic Today: see MAR Narrative: Khurram is a [address] 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 He arrives to clinic ambulatory with his for Cycle 2 Day 3 of [facility]. [facility] accessed per protocol. Good blood return noted. Appropriate waste discarded. L abs drawn and sent. [facility] pulse flushed with 20 mL NS. No labs per chemotherapy plan to day. Per infusion plan, he is due for CBC, BMP, and Tacrolimus level one more time this week . Patient was premedicated with Zofran 8 mg. Patient was also given Ativan 1 mg for breakthro ugh nausea. Chemotherapy was checked by 2 RNs. V[facility]aza 70 mg was infused per chemotherapy pr otocol and completed without adverse event. Positive blood return noted pre, and post infus ion. For infusion details, see MAR. All lumens flushed per protocol. Dr. Garcia was paged for a prescription for Ativan. Patient advised and will corn picker today or tomorrow. Educated pt to contact clinic if experiencing temp greater than 100.4, chills, s/ s of infection or bleeding, inability to swallow or keep down liquids or pills, or any other concerns. Pt/caregiver verbalized understanding. Discharged ambulatory with his who w ill be driving. Sapna Murray RN documented in this encounter Plan of [...] 2019 | Visit | Malignancy | [address] | | | | | | [address] | | | | | | [place], [place] | | | | | | [address] | | | | | | [phone] | | | | | | | | +--------+---------+ + + + documented as of this encounter Procedures + +--------+ + + + | Procedure Name | Priori | Date/Time | Associated Diagnosis | Comments | | | ty | | | | + +--------+ + + + | NURSING | Routin | 12/01/2015 | Acute myeloid | | | COMMUNICATION #3 - | e | 8:02 AM | leukemia (AML), M4 | | | [facility] | | PDT | (HCC)- primary | | | | | | induction failure | | + +--------+ + + + | NURSING | Routin | 12/01/2015 | Acute myeloid | | | COMMUNICATION #2 - | e | 8:02 AM | leukemia (AML), M4 | | | [facility] | | PDT | (HCC)- primary | | | | | | induction failure | | + +--------+ + + + | NURSING | Routin | 12/01/2015 | Acute myeloid | | | COMMUNICATION #1 - | e | 8:02 AM | leukemia (AML), M4 | | | [facility] | | PDT | (HCC)- primary | | | | | | induction failure | | + +--------+ + + + | LIVER SET | Urgent | 12/01/2015 | S/P allogeneic | Results for this | | (AST,ALT,BILI | | 8:02 AM | bone marrow | procedure are [...] + + documented in this encounter Results LIVER SET (AST,ALT,BILI TOTAL,BILI DIRECT,ALK PHOS,ALB,PROT TOTAL) (12/01/2015 8:02 AM PDT ) + +---------+ + + [...] + + + | ALK PHOS | 52 (L) | 53 - 128 U/L | [facility] | | | | | | LABORATORY | | | | | | SERVICES, | | | | | | CORE | | + +---------+ + + + | AST(SGOT) | 46 (H) | <=41 U/L | [facility] | | | | | | LABORATORY | | | | | | SERVICES, | | | | | | CORE | | + +---------+ + + + | ALT (SGPT) | 97 (H) | <=60 U/L | [facility] | [...] test result. | LABORATORY | | | INDRA SHARIF | + + + + + + + + | Performing | Address | City/State/Zipcode | Phone Number | | Organization | | | | + + + + + | [facility] | [address] | [place] [address] | | | SERVICES, CORE | PARK [...] 70 mg in | New Bag | 12/01/19 | 70 mg | 214 | Central | | NaCl 0.9 % IV 70 mg (rounded | | 16 9:00 | | mL/hr | Line | | from 67.84 mg = 32 mg/m2 | | AM PDT | | | | | 2.12 m2 Treatment plan recorded | | | | | | | BSA), intravenous, Administer | | | | | | | over 30 Minutes, ONCE, 1 dose, | | | | | | | 12/01/15 at 0830, HIGH RISK | | | | | | | MEDICATION-CHEMOTHERAPY | | | | | | | Administration must be completed | | | | | | | within 1 hour of preparation., | | | | | | + +---------+ +-------+-------+ + +---+---+ | | | +---+---+ + +-------+ + +---+---+ | heparin 10 unit/mL IV flush | Given | 12/01/19 | 50 Units | | | | syringe 50 Units 50 Units, | | 16 9:44 | | | | | Intracatheter, NEEDED, | | AM PDT | | | | | Starting Sun12/01/15 at 0945, | | | | | | | Until Sun12/01/15 at 1549, line | | | | | | | patency | | | | | | + +-------+ + +---+---+ +-------+ + +---+---+ | Given | 12/01/19 | 50 Units | | | | | 16 9:43 | | | | | | AM PDT | | | | +-------+ + +---+---+ | Given | 12/01/19 | 50 Units | | | | | 16 9:42 | | | | | | AM PDT | | | | +-------+ + +---+---+ +---+---+ | | | +---+---+ + +-------+ +------+---+---+ | LORazepam (ATIVAN) tablet 1 mg | Given | 12/01/19 | 1 mg | | | | 1 mg, oral, NEEDED, 1 dose, | | 16 8:47 | | | | | Starting Sun12/01/15 at 0837, | | AM PDT | | | | | Until Sun12/01/15 at 0847, | | | | | | | nausea/vomiting | | | | | | + +-------+ +------+---+---+ +---+---+ | | | +---+---+ + +-------+ +------+---+---+ | ondansetron (ZOFRAN) tablet 8 | Given | 12/01/19 | 8 mg | | | | mg 8 mg, oral, ONCE, 1 dose, Sun | | 16 8:20 | | | | | 12/01/15 at 0815 | | AM PDT | | | | + +-------+ +------+---+---+ +---+---+ | | | +---+---+ documented in this encounter"
--- OUTSIDE RECORDS SUMMARY | ~2019-05-17 | XMS | Encounter Summary ---
Demographics + + + | Address | [address] | | | [place] [address] | + + + | Home Phone [...] Team Providers + +------+ + | Care Metal Drawer Name | Role | Phone | + [...] | | | | | | | [address] | | | | | | | [address] | | | | | | | [place], | | | | | | | [place] | | | | | | | [address] | | | | | | | Phone: | | | | | | | [phone] | | | | | | | Fax: | | | | | | | [phone] | +--------+--------+ + + + + Encounter [...] | | | | [facility] | [place], [place] | | | | | [address] | [address] | | | | | [address] Mailcode: | [phone] | | | | | [facility] | | | | | | [place], | | | | | | [place] [address] | | | | | | [phone] | | | +--------+---------+ + + + [...] half. Match. Check out at the front desk associate today and make your next appointments. You can also call the s chedulers at [phone]. If you have any questions, or if you need prescription refills, or are experiencing any sym ptoms or side effects please call our engineering technical specialist at [phone] Your physicians nurse is Christina Hernandez. You can reach her Sunday thru by page at [phone], by phone at [phone] or via email at [email or web address] For an Allogeneic (Allo) transplant two things [...] and a meeting with Kezia Stokes our renal social worker to help you if you need any othe r assistance -non medical stuff. ( we coordinate this to happen all here at [facility] in one da y) The 2 hour education class that you will attend here at [facility] that talks about what to expec t before, during and after transplant including GVHD Given the tests all come out good----After the tests you'll meet with Dr. Garcia to review th e test results and sign the consent forms. STEP 3) Transplant- you admit to [facility] and get high dose chemotherapy for several days then after the chem you get your transplant. This is about a 3-4 week hospitalization while you recover. You will need a central line for transplant STEP 4) When you discharge from [facility] after transplant you need to be living close to [facility] ( within 20 miles) for up to 100 days after the transplant. You will also need a [facility] or team of caregivers to assist [...] our nurse Christina Hernandez via email at [email or web address] Once we have authorization we will send [...] Garcia MD - 08/07/2015 8:56 PM PST [facility] 07/15/15 Diagnosis: AML - primary induction failure Reason for visit: Establish longitudinal care and determine treatment plan Disease History: Khurram Kelly is a 24 y.o. CM with a PMH of pericarditis who was in his [facility] u ntil 03/13/15 (the night of his [...] his L ankle. He was evaluated at [facility] ED on 06/[address] angiogram negative [...] acute myelomonocytic leukemia. He was referred to [facility] for further evaluation and man agement of his newly dx'd AML. Pt was admitted to [facility] on 05/26/15. Peripheral blood was [...] CD34, variable CD56, variable CD117, and dim NB907-ynlok mickey; promonocyte immunophenotype (70% by flow): CD11b, [...] Latest known visit with results is: Clinical Manager Consumer on 07/12/2015 Component Date Value SODIUM, POC [...] from mom or dad, though the current [facility] protocol precludes enrollment of patients with active AML and we would have to obtain a waiver to allow his enrollment. CBU not an active consideration for PIF AML. Difficult situation overall, at best 20-30% salvage determiner survival with SCT, negligible long te rm survival without it. Should he be unresponsive to decitabine, I will refer him to Dr. Pretty at [facility] for c onsideration of the bispecific antibody study (DART). 2. Immunocompromised host -acyclovir for viral prophylaxis -levaquin for bacterial prophylaxis -posaconazole for fungal prophylaxis 3. Dental issues -has some dental work that needs work (crown is off), but limited ability to have dental ma nipulations given severity of pancytopenia -encouraged pt to identify local dentist in [place] for diagnostic visit - if there are [...] provider visit s Yari Garcia MD, MS Quality Assurance Consultantinstructional technology coordinator [facility] [address] [place] [address] Display Progress Note in MyChart: No I [...] Rd | | | | | | [place], [place] | | | | | | [address] | | | | | | [phone] | | | | | | | [...] + | [facility] - | [address] | [place] [address] | | | IMMUNOGENETICS/TRANS | [address] [...] - | [address] | [place], [place] | | | IMMUNOGENETICS/TRANS | [address] [...] - | [address] | [place], [place] | | | IMMUNOGENETICS/TRANS | Suite [...] 2 fold may not reflect true | [facility] | | biological changes and must be [...] | | | characteristics determined by the [facility] | | | Molecular Diagnostic Center. It has not been cleared or approved by | | | the Food and Drug Administration. FDA approval is not required for | | | clinical use of this test, and therefore validation was done as | | | required under the requirements of the Clinical Laboratory Improvement | | | Act of 1988. The [facility] Molecular | | | Diagnostic Center is a fully licensed and/or accredited clinical | | | laboratory under CLIA, CAP, and the [facility]. | | + + + + + + + + | Performing | Address | City/State/Zipcode | Phone Number | | Organization | | | | + + + + + | [facility] | [address] | [place] [address] | | | DIAGNOSTIC | [address] [...] at | | | | | | [email or web address] | | | | | | x. [...] at | | | | | | [email or web address] | | | | | | x. [...] at | | | | | | [email or web address] | | | | | | x. [...] at | | | | | | [email or web address] | | | | | | x.Performed by [facility] | | | | | | Elizabeth,Misa Quiroga | | | | | | [place] [address] | | | | | | [phone]. | | | | | | Elmo [...] [facility] | [address] | [place], [place] | | | UN[facility] | | [address] | | + + + + + [...] + | [facility] - | [address] | [place] [address] | | | [place] | | | [...] + | [facility] - | [address] | [place] [address] | | | [place] | | | | + + + [...] + | [facility] - | [address] | [place] [address] | | | [place] | | | [...] | + + + + + | [facility] - | [address] | [place] [address] | | | [place] | | | [...] [address] | | | | | | [place] [address] | | | | | | [phone]. | | | | | | timo, [...] [facility] | [address] | [place], [place] | | | UN[facility] | | [address] | | + + + + + [...] [facility] | [address] | [place] [address] | | | SERVICES, CORE | PARK [...] [facility] | [address] | [place] [address] | | | SERVICES, CORE | PARK [...] [facility] | [address] | [place] [address] | | | SERVICES, CORE | PARK [...] [facility] | [address] | [place] [address] | | | INDRA SHARIF | [address] [...] [facility] | [address] | [place] [address] | | | SERVICES, CORE | PARK [...] | + + + + + | [facility] | [address] | [place] [address] | | | SERVICES, CORE | [address] [...] [facility] | [address] | [place] [address] | | | SERVICES, CORE | [address] [...] [facility] | [address] | [place] [address] | | | SERVICES, CORE | PARK [...] | | | LABORATORY | | | [facility] | | | SERVICES, | | | [...] the MDRD equation recommended by the | [facility] | | National Kidney Disease Education Program. [...] [facility] | [address] | [place] [address] | | | SERVICES, CORE | [address] | | | + + + + + documented in this encounter Visit Diagnoses + + | Diagnosis | + + | Acute myeloid leukemia (AML), M4 (HCC) - Primary | + + documented in this encounter
--- OUTSIDE RECORDS SUMMARY | ~2019-05-17 | XMS | Encounter Summary ---
Demographics + + + | Address | [address] | | | [place] [address] | + + + | Home Phone [...] +------+ + | Care Assistant Professor Of Communication Name | Role | Phone | + +------+ + | Pending Pcp Addition | PCP | Unavailable | + +------+ + Reason for Visit + + + | Reason | Comments | + + + | Dressing change | Trifusion | + + + | Lab Draw [...] | | | | | | | [address] | | | | | | | Phone: | | | | | | | [phone] | | | | | | | Fax: | | | | | | | [phone] | +--------+--------+ + + + + Encounter Details +--------+ + + + + | Date | Type | Department | Care Team | Description | +--------+ + + + + | 02/06/ | Clinical | [facility] | | Dressing change | | 2016 | Support | Hematologic | | (Trifusion); Lab | | | Staff | [facility] | | Draw | | | | [address] | | | | | | [place] Mailcode: | | | | | | [id number] | | | | | | [place], | | | | | | [place] [address] | | | | | | [phone] | | | +--------+ + + + [...] documented as of this encounter Progress Notes Marie Peres RN - 02/07/2016 2:38 PM PDTPatient ambulated into fast track for lab draw prior to provider appointment. He developed a red raised rash all over his body last week. H e states that it started around his central line and has spread. Patient reports that the ra sh is itchy and has worsened. He was seen in ED in [place] on Sunday and advised by Dr. Garcia to increase his predinsone was increased to 20 mg daily. He states that it briefly help ed but the rash worsened again today. Patient to discuss further with Dr. Garcia today. [facility] Lab Draw: Trifusion accessed per protocol. Good blood return noted. Appropriate waste discarded. L abs drawn and sent. Trifusion pulse flushed with 20 mL NS and 5 mL of 10 units/mL Heparin. Patient scheduled for provider visit today with Dr. Garcia. Trifusion intact to left anterior chest wall [...] mL NS. Patient tolerated procedure without difficulty. Patient sent back to waiting room until provider appointment. documented in this enc ounter Plan of [...] Rd | | | | | | [place], [place] | | | | | | [address] | | | | | | [phone] | | | | | | | | +--------+---------+ + + + documented as of this encounter Procedures + +--------+ + + + | Procedure Name | Priori | Date/Time | Associated Diagnosis | Comments | | | ty | | | | + +--------+ + + + | CBC+DIFF,POC | Routin | 02/07/2016 | S/P allogeneic | Results for this | | | e | 1:48 PM | bone marrow | procedure are in the | | | | PDT | transplant (HCC) | results section. 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[facility])- primary | | | | | | induction failure | | + +--------+ + + + | NURSING | Routin | 02/07/2016 | S/P allogeneic | | | COMMUNICATION #5 - | e | 1:31 PM | bone marrow | | | [facility] | | PDT | transplant (HCC) | 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 | | + +--------+ + + + | TREATMENT PARAMETERS | Routin | 02/07/2016 | 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 | 1:31 PM | leukemia (AML), M4 | | | | | PDT | ([facility])- primary | | | | | | induction failure | | + +--------+ + + + | TREATMENT PARAMETERS | Routin | 02/07/2016 | 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 | 1:31 PM | leukemia (AML), M4 | | | | | PDT | ([facility])- primary | | | | | | induction failure | | + +--------+ + + + | TREATMENT PARAMETERS | Routin | 02/07/2016 | 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 | 1:31 PM | leukemia (AML), M4 | | | | | PDT | ([facility])- primary | | | | | | induction failure | | + +--------+ + + + | TREATMENT PARAMETERS | Routin | 02/07/2016 | 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 | 1:31 PM | leukemia (AML), 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 | | | | | | induction failure | | + +--------+ + + + | TREATMENT PARAMETERS | Routin | 02/07/2016 | 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 | 1:31 PM | leukemia (AML), 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 | | | | | | induction failure | | + +--------+ + + + | NURSING | Routin | 02/07/2016 | S/P allogeneic | | | COMMUNICATION #4 - | e | 1:31 PM | bone marrow | | | [facility] | | PDT | transplant (HCC) | 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 | | + +--------+ + + + | NURSING | Routin | 02/07/2016 | S/P allogeneic | | | COMMUNICATION #3 - | e | 1:31 PM | bone marrow | | | [facility] | | PDT | transplant (HCC) | 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 | | + +--------+ + + + | NURSING | Routin | 02/07/2016 | S/P allogeneic | | | COMMUNICATION #3 - | e | 1:31 PM | bone marrow | | | [facility] | | PDT | transplant (HCC) | 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 | | + +--------+ + + + | NURSING | Routin | 02/07/2016 | S/P allogeneic | | | COMMUNICATION #2 - | e | 1:31 PM | bone marrow | | | [facility] | | PDT | transplant (HCC) | 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 | | + +--------+ + + + | NURSING | Routin | 02/07/2016 | S/P allogeneic | | | COMMUNICATION #2 - | e | 1:31 PM | bone marrow | | | [facility] | | PDT | transplant ([facility]) | 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[facility])- primary | | | | | | induction failure | | + +--------+ + + + | NURSING | Routin | 02/07/2016 | S/P allogeneic | | | COMMUNICATION #1 - | e | 1:31 PM | bone marrow | | | [facility] | | PDT | transplant ([facility]) | 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[facility])- primary | | | | | | induction failure | | + +--------+ + + + | NURSING | Routin | 02/07/2016 | S/P allogeneic | | | COMMUNICATION #1 - | e | 1:31 PM | bone marrow | | | [facility] | | PDT | transplant (HCC) | 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 | | + +--------+ + + + | TREATMENT PARAMETERS | Routin | 02/07/2016 | S/P allogeneic | | | #1 - [facility] | e | 1:31 PM | bone marrow | | | | | PDT | transplant (HCC) | 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 | | + +--------+ + + + | TREATMENT PARAMETERS | Routin | 02/07/2016 | S/P allogeneic | | | #1 - [facility] | e | 1:31 PM | bone marrow | | | | | PDT | transplant (HCC) | 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 | | + +--------+ + + + | TREATMENT PARAMETERS | Routin | 02/07/2016 | S/P allogeneic | | | #1 - [facility] | e | 1:31 PM | bone marrow | | | | | PDT | transplant (HCC) | 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 | | + +--------+ + + + | CMV PCR | Routin | 02/07/2016 | S/P allogeneic | Results for this | | QUANTITATION, PLASMA | e | 1:31 PM | bone marrow | procedure are [...] + | LIVER SET | Urgent | 02/07/2016 | S/P allogeneic | Results for this | | (AST,ALT,BILI | | 1:31 PM | bone marrow | procedure are [...] + documented in this encounter Results CBC+DIFF,POC (02/07/2016 1:48 PM PDT) + + + + + + | Component | Value | Ref Range | Performed | Pathologist | | | | | At | Signature | + + + + + + | WBC POC | 6.4 | 4.4 - 11.0 | [facility] - [...] + + + | HGB POC | 13.0 (L) | 13.5 - 17.5 | [facility] - | | | | | g/dL | [facility] | | | | | | [facility] | | | | | | OF CARE | | | | | | TESTS | | + + + + + + | HCT POC | 37.8 (L) | 41.0 - 53.0 % | [facility] - | | | | | | [place] | | | | | | [facility] | | | | | | OF CARE | | | | | | TESTS | | + + + + + + | MCV POC | 103.6 (H) | 80.0 - 96.0 fL | [facility] - | | | | | | [place] | | | | | | [facility] | | | | | | OF CARE | | | | | | TESTS | | + + + + + + | MCH POC | 35.6 (H) | 28.5 - 32.3 pg | [...] + + | RDW SD, POC | 49.7 (H) | 35.1 - 46.3 fL | [facility] - | | | | | | [place] | | | | | | [facility] | | | | | | OF CARE | | | | | | TESTS | | + + + + + + | PLT POC | 77 (L) | 150 - 400 | [facility] - | | | | | 10*3/uL | [facility] | | | | | | [facility] | | | | | | OF CARE | | | | | | TESTS | | + + + + + + | MPV POC | 8.8 (L) | 9.7 - 12.3 fL | [facility] - | | | | | | [facility] | | | | | | [place], POINT | | | | | | OF CARE | | | | | | TESTS | | + + + + + + | NEUTROPHIL% | 52.5 | 50.0 - 70.0 % | [facility] - | | | POC | | | [place] | | | | | | [facility]INT | | | | | | OF CARE | | | | | | TESTS | | + + + + + + | LYMPH% POC | 32.8 | 18 - 42 % | [facility] - | | | | | | [place] | | | | | | [facility] | | | | | | OF CARE | | | | | | TESTS | | + + + + + + | MONO %, POC | 9.1 (H) | 3.5 - 9.0 % | [facility] - | | | | | | [place] | | | | | | [facility] | | | | | | OF CARE | | | | | | TESTS | | + + + + + + | EOS %, POC | 5.3 (H) | 1.0 - 3.0 % | [...] + + + + | NEUTROPHIL# | 3.4 | 1.8 - 7.7 | [facility] - | | | POC | | 10*3/uL | [place] | | | | | | [facility] | | | | | | OF CARE | | | | | | TESTS | | + + + + + + | LYMPH# POC | 2.1 | 1.0 - 4.8 | [facility] - [...] [facility] | [address] | [place], [place] | | | [facility] POINT OF CARE | [address] | [address] | | | TESTS | | | | + + + + + BMP + PHIL ROBERTSON CHDavid (02/07/2016 1:47 PM PDT) + +---------+ + + + [...] +---------+ + + + | POTASSIUM, | 3.2 (L) | 3.4 - 5.0 | [facility] - | | | POC | | mmol/L | [place] | | | | | [...] + + + | LDH, POC | 314 (H) | 0 - 206 U/L | [facility] - | | | | | | [facility] | | | | | | [facility] | | | | | | OF CARE | | | | | | TESTS | | + +---------+ + + + | MAGNESIUM, | 1.9 | 1.8 - 2.5 mg/dL [...] + | [facility] | [address] | [place], [place] | | | [facility] POINT OF CARE | [address] | [address] | | | TESTS | | | | + + + + + LIVER SET (AST,ALT,BILI TOTAL,BILI DIRECT,ALK PHOS,ALB,PROT TOTAL) (02/07/2016 1:31 PM PDT ) + +---------+ + + + | Component | Value | Ref Range | Performed | Pathologist | | | | | At | Signature | + +---------+ + + + | ALBUMIN, | 4.0 | 3.5 - 4.7 g/dL | [facility] [...] + + + | ALK PHOS | 84 | 53 - 128 U/L | [facility] | | | | | | LABORATORY | | | | | | SERVICES, | | | | | | CORE | | + +---------+ + + + | AST(SGOT) | 59 (H) | <=41 U/L | [facility] | | | | | | LABORATORY | | | | | | SERVICES, | | | | | | CORE | | + +---------+ + + + | ALT (SGPT) | 145 (H) | <=60 U/L | [facility] | [...] | + + + + + | [facility] | [address] | [place] [address] | | | SERVICES, CORE | [address] | | | + + + + + CMV PCR QUANTITATION, PLASMA (02/07/2016 1:31 PM PDT) + + + + + [...] 2 fold may not reflect true | [facility] | | biological changes and must [...] | | characteristics determined by the [facility] | | | Molecular Diagnostic Center. It has not been cleared or approved by | | | the Food and Drug Administration. FDA approval is not required for | | | clinical use of this test, and therefore validation was done as | | | required under the requirements of the Clinical Laboratory Improvement | | | Act of 1988. The [facility] | | | Diagnostic Center is a fully licensed and/or accredited clinical | | | laboratory under CLIA, CAP, and the [facility]. | | + + + + + + + + | Performing | Address | City/State/Zipcode | Phone Number | | Organization | | | | + + + + + | [facility] | [address] | [place] [address] | | | DIAGNOSTIC | [address] [...]
--- OUTSIDE RECORDS SUMMARY | ~2019-05-17 | XMS | Encounter Summary ---
Demographics + + + | Address | [address] | | | [place] [address] | + + + | Home Phone [...] Team Providers + +------+ + | Care Gas Compressor Turbine Operator Name | Role | Phone | + +------+ + | Zayda Hinton | PCP | | + +------+ + Encounter Details +--------+ + + + + | Date | Type | Department | Care Team | Description | +--------+ + + + + | 08/31/ | Pharmacy | Specialty Pharmacy | | | | 2016 | Visit | Services [address] | | | | | | [address] | | | | | | [place], [place] | | | | | | [address] | | | | | | [phone] | | | +--------+ + + + [...] [address] | | | | | | [place], [place] | | | | | | [address] | | | | | | [phone] | | | | | | | | +--------+---------+ + + + documented as of this encounter Visit Diagnoses Not on filedocumented in this encounter"
--- OUTSIDE RECORDS SUMMARY | ~2019-05-17 | XMS | Encounter Summary ---
Demographics + + + | Address | [address] | | | [place] [address] | + + + | Home Phone | | + + + | Preferred Language | Unknown | + + + | Marital Status | | + + + | Buddhism Affiliation | SPI | + + + [...] Providers + +------+ + | Care Patient Portal Representative Name | Role | Phone | + +------+ + | Zayda Hinton | PCP | | + +------+ + Encounter Details +--------+ + + + + | Date | Type | Department | Care Team | Description | +--------+ + + + + | 03/15/ | Pharmacy | Specialty Pharmacy | | | | 2015 | Visit | Services [address] | | | | | | [address] | | | | | | [place], [place] | | | | | | [address] | | | | | | [phone] | | | +--------+ + + + [...] 2019 | Visit | Malignancy | [address] [facility] [address] [facility] | | | | | | [address] | | | | | | [place], [place] | | | | | | [address] | | | | | | [phone] | | | | | | | | +--------+---------+ + + + documented as of this encounter Visit Diagnoses Not on filedocumented in this encounter"
--- OUTSIDE RECORDS SUMMARY | ~2019-05-17 | XMS | Encounter Summary ---
Demographics + + + | Address | [address] | | | [place] [address] | + + + | Home Phone [...] + + + | Author | [facility] | + + + | Organization | [facility] | + + + | Address | Unknown | + + + | Phone | Unavailable | + + + Support + + +---------+ + | Name | Relationship | Address | Phone | + + +---------+ + | Gabriel Kelly | ECON | Unknown | | + + +---------+ + Care Team Providers + +------+ + | Care Visitor Services Technician Name | Role | Phone | + +------+ + | Zayda Hinton | PCP | | + +------+ + Encounter Details +--------+ + + + + | Date | Type | Department | Care Team | Description | +--------+ + + + + | 02/14/ | Pharmacy | Specialty Pharmacy | | | | 2015 | Visit | Services [address] | | | | | | [address] | | | | | | [place], [place] | | | | | | [address] | | | | | | [phone] | | | +--------+ + + + [...] 2019 | Visit | Malignancy | [address] [facility] | | | | | | [address] | | | | | | [place], [place] | | | | | | [address] | | | | | | [phone] | | | | | | | | +--------+---------+ + + + documented as of this encounter Visit Diagnoses Not on filedocumented in this encounter"
--- OUTSIDE RECORDS SUMMARY | ~2019-05-17 | XMS | Encounter Summary ---
Demographics + + + | Address | [address] | | | [place] [address] | + + + | Home Phone [...] Team Providers + +------+ + | Care Hog Worker Name | Role | Phone | + +------+ + | Pending Pcp Addition | PCP | Unavailable | + +------+ + Encounter Details +--------+ + + + + | Date | Type | Department | Care Team | Description | +--------+ + + + + | 07/13/ | Hospital | Diagnostic | Aspen Cummins FNP | | | 2017 | Encounter | [facility] | [address] | | | | | [address] | [address] | | | | | [place] Mailcode: | [place], [place] | | | | | [address] Physician's | [address] | | | | | [place], | [phone] | | | | | [place] [address] | | | | | | [phone] | | | +--------+ + + + [...] Rd | | | | | | [place], [place] | | | | | | [address] | | | | | | [phone] | | | | | | | | +--------+---------+ + + + documented as of this encounter Procedures + +--------+ + + + | Procedure Name | Priori | Date/Time | Associated Diagnosis | Comments | | | ty | | | | + +--------+ + + + | X-RAY HIP 2 VIEWS | Routin | 07/13/2016 | Hip pain, left | Results for this | | LEFT W/ PELVIS 1 | e | 11:18 AM | | procedure are in the | | VIEW | | PST | | results section. | + +--------+ + + + documented in this encounter Results X-RAY HIP 2 VIEWS LEFT W/ PELVIS 1 VIEW (07/13/2016 11:18 AM PST) + + + + + + | Component | Value | Ref Range | Performed | Pathologist | | | | | At | Signature | + + + + + + | X-RAY HIP 2 | EXAM: HIP 2 VIEWS LEFT | | | | | VIEWS LEFT | W/ PELVIS 1 VIEW | | | | | W/ PELVIS | 07/13/16 11:18:00 | | | | | 1 VIEW | HISTORY: Evaluate for | | | | | | fracture or avascular | | | | | | necrosis. COMPARISON: | | | | | | 03/30/2016. FINDINGS: | | | | | | There has been interval | | | | | | development of articular | | | | | | surface irregularity | | | | | | along thelateral margin | | | | | | of the femoral head with | | | | | | slight lucency along | | | | | | the subchondralbone | | | | | | plate suggesting early | | | | | | subchondral collapse. | | | | | | There may be mild | | | | | | patchysclerosis within | | | | | | the central femoral | | | | | | head. The right hip is | | | | | | unchanged with | | | | | | mildspurring. The pubic | | | | | | symphysis and sacroiliac | | | | | | joints are maintained. 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 | | | | | | Attending Radiologists: | | | | | | SANDRA GOMEZ MDAuthor: | | | | | | SANDRA GOMEZ MD I | | | | | [...] | | | | | signed / SANDRA GOMEZ | | | | | | 07/13/2016 11:26 AM | | | | + + + + + + + + | Specimen | + + | | + + + +---------+ + + | Performing | Address | City/State/Zipcode | Phone Number | | Organization | | | | + +---------+ + + | [facility] | | | | | RADIOLOGY | | | | + +---------+ + + documented in this encounter Visit Diagnoses + + | Diagnosis | + + | Hip pain, left Pain in joint, pelvic region and thigh | + + documented in this encounter"
--- OUTSIDE RECORDS SUMMARY | ~2019-05-17 | XMS | Encounter Summary ---
Demographics + + + | Address | [address] | | | [place] [address] | + + + | Home Phone [...] Team Providers + +------+ + | Care Tassel Clipper Name | Role | Phone | + +------+ + | Zayda Hinton | PCP | | + +------+ + Encounter Details +--------+ + + + + | Date | Type | Department | Care Team | Description | +--------+ + + + + | 06/15/ | Pharmacy | Outpatient Retail | | | | 2015 | Visit | Clinic Pharmacy | | | | | | [address] | | | | | | [place], | | | | | | [place] [address] | | | +--------+ + + + [...] 2018 | Visit | Malignancy | [address] [facility] | | | | | | [address] | | | | | | [place], [place] | | | | | | [address] | | | | | | [phone] | | | | | | | | +--------+---------+ + + + documented as of this encounter Visit Diagnoses Not on filedocumented in this encounter"
--- OUTSIDE RECORDS SUMMARY | ~2019-05-17 | XMS | Encounter Summary ---
Demographics + + + | Address | [address] | | | [place] [address] | + + + | Home Phone | | + + + | Preferred Language | Unknown | + + + | Marital Status | | + + + | Mormon Affiliation | SPI | + + + | Race | White | + + + | Ethnic Group | Not or | + + + Author + + + | Author | [facility] | + + + | Organization | [facility] | + + + | Address | Unknown | + + + | Phone | Unavailable | + + + Support + + +---------+ + | Name | Relationship | Address | Phone | + + +---------+ + | Gabriel Kelly | ECON | Unknown | | + + +---------+ + Care Team Providers + +------+ + | Care Groundman Name | Role | Phone | + +------+ + | Pending Pcp Addition | PCP | Unavailable | + +------+ + Encounter Details +--------+ + + + + | Date | Type | Department | Care Team | Description | +--------+ + + + + | 09/28/ | Cross Country Truck Driver | Center for | [facility], | Acute myeloid | | 2016 | | Hematologic | PA-C [address] [facility] | leukemia (AML), M4 | | | | Malignancies at | [address] | (HCC)- primary | | | | [facility] | [place], [place] | induction failure | | | | [address] | [address] | (Primary Dx); S/P | | | | [address] Mailcode: | [phone] | allogeneic bone | | | | [id number] | | marrow transplant | | | | [place], | | ([facility]) | | | | [place] [address] | | | | | | [phone] | | | +--------+ + + + [...] 2019 | Visit | Malignancy | [address] [facility] | | | | | | [address] | | | | | | [place], [place] | | | | | | [address] | | | | | | [phone] | | | | | | | | +--------+---------+ + + + + + +--------+ + + | Name | Type | Priori | Associated Diagnoses | Order Schedule | | | | ty | | | + + +--------+ + + | CBC+DIFF,POC | Lab - Point | Urgent | Acute myeloid | Expected: 09/30/2015 | | | of Care | | leukemia (AML), M4 | | | | Interface | | ([facility])- primary | 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 | | | | | | (HCC) | | + + +--------+ + + documented as of this encounter Results LIVER SET (AST,ALT,BILI TOTAL,BILI [...] [facility] | [address] | [place] [address] | | | SERVICES, CORE | [address] [...] [facility] | [address] | [place] [address] | | | SERVICES, SPECIAL | [address] [...] | + + + + + | [facility] | [address] | [place] [address] | | | SERVICES, CORE | [address] | | | + + + + + BMP PHIL PAK (09/30/2015 7:57 AM PDT) + +---------+ + [...] + + | [facility] | [address] | [place], [place] | | | [facility] | [address] | [address] | | | TESTS | | | [...]
--- OUTSIDE RECORDS SUMMARY | ~2019-05-17 | XMS | Encounter Summary ---
Demographics + + + | Address | [address] | | | [place] [address] | + + + | Home Phone [...] Team Providers + +------+ + | Care Plumbing Assembler Name | Role | Phone | [...] | | | | | | [place], | | | | | | | [place] | | | | | | | [address] | | | | | | | Phone: | | | | | | | [phone] | | | | | | | Fax: | | | | | | | [phone] | +--------+--------+ + + + + Encounter [...] | | | | | | [id number] | | | | | | [place], | | | | | | [place] [address] | | | | | | [phone] | | | +--------+ + + + [...] 2019 | Visit | Malignancy | [address] [facility] | | | | | | [address] | | | | | | [place], [place] | | | | | | [address] | | | | | | [phone] | | | | | | | [...] the | | | | PST | ([facility]) | results section. 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 | + +--------+ + + + | BMP + MAG, POC CHM | Urgent | 07/10/2015 | Acute myeloid | Results for this | | | | 11:11 AM | leukemia (AML), M4 | procedure are in the | | | | PST | ([facility]) | results section. | + +--------+ + + + | CBC AND AUTO DIFF | Urgent | 07/10/2015 | Acute myeloid | Results for this | | | | 10:45 AM | leukemia (AML), M4 | procedure are in the | | | | PST | ([facility]) | results section. | + +--------+ + + + | MANUAL DIFFERENTIAL | Routin | 07/10/2015 | Acute myeloid | Results for this | | | e | 10:45 AM | leukemia (AML), M4 | procedure are in the | | | | PST | ([facility]) | results section. | + +--------+ + [...] + + + + | PRODUCT | [id number] | | [facility] | | | UNIT [...] + + + + | EXPIRATION | [id number] | | [facility] | | | DATE [...] + + + + | BLOOD | [id number] | | [facility] | | | PRODUCT [...] [facility] | [address] | [place] [address] | | | PATHOLOGY | [address] [...] [facility] | [address] | [place] [address] | | | SERVICES, | [address] [...] [facility] | [address] | [place] [address] | | | SERVICES, | [address] [...] [facility] | [address] | [place], [place] | | | [facility] | [address] | [address] | | | TESTS | | | [...] [facility] | [address] | [place] [address] | | | SERVICES, CORE | [address] [...] [facility] | [address] | [place] [address] | | | SERVICES, CORE | [address] [...] [facility] | [address] | [place] [address] | | | SERVICES, CORE | PARK [...] | + + + + + | [facility] | [address] | [place] [address] | | | SERVICES, CORE | WALLY [...] [facility] | [address] | [place] [address] | | | SERVICES, INDRA | WALLY [...]
--- OUTSIDE RECORDS SUMMARY | ~2019-05-17 | XMS | Encounter Summary ---
Demographics + + + | Address | [address] | | | [place] [address] | + + + | Home Phone [...] Team Providers + +------+ + | Care Dice Table Operator Name | Role | Phone | [...] + + + + | 05/29/ | Diagnostic | Center for | | [...] | | | | | | [facility] | | | | | | [place] [address] | | | | | | [phone] | | | +--------+ + + + [...] encounter Progress Notes Joshua Xie MA - 05/29/2016 3:00 PM PSTVenipuncture performed in clinic, blood sample [...] Rd | | | | | | [place], [place] | | | | | | [address] | | | | | | [phone] | | | | | | | | +--------+---------+ + + + documented as of this encounter Procedures + +--------+ + + + | Procedure Name | Priori | Date/Time | Associated Diagnosis | Comments | | | ty | | | | + +--------+ + + + | BMP + MAG, POC CHM | Routin | 05/29/2016 | S/P allogeneic | Results for this | | | e | 3:29 PM | bone marrow | procedure are in the | | | | PST | transplant (HCC) | results section. 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 | | ATE),BLOOD | | | Acute myelomonocytic | | | | | | leukemia in | | | | | | remission (HCC) | | + +--------+ + + + | LIVER SET | Urgent | 05/29/2016 | S/P allogeneic | Results for this | | (AST,ALT,BILI | | 3:12 PM | bone marrow | procedure are [...] encounter Results BMP + MAG, POC CHM (05/29/2016 3:29 PM PST) + +---------+ + + + [...] +---------+ + + + | GLUCOSE, | 109 (H) | 60 - 99 mg/dL | [...] +---------+ + + + | CREATININE, | 1.2 | 0.7 - 1.3 mg/dL | [facility] - | | | POC | | | [facility] | | | | | | [facility] | | | | | | OF CARE | | | | | | TESTS | | + +---------+ + + + | LDH, POC | 191 | 0 - 206 U/L | [facility] [...] [facility] | [address] | [place], [place] | | | [facility] CARE | [address] | [address] | | | TESTS | | | | + + + + + CBC+DIFF,POC (05/29/2016 3:26 PM PST) + + + + + [...] + + + | RBC POC | 4.22 (L) | 4.50 - 6.00 | [facility] - | | | | | 10*6/uL | [facility] | | | | | | [facility] | | | | | | OF CARE | | | | | | TESTS | | + + + + + + | HGB POC | 14.1 | 13.5 - 17.5 | [facility] - | | | | | g/dL | [facility] | | | | | | [facility], POINT | | | | | | OF CARE | | | | | | TESTS | | + + + + + + | HCT POC | 41.7 | 41.0 - 53.0 % | [facility] - | | | | | | [facility] | | | | | | [facility], POINT | | | | | | OF CARE | | | | | | TESTS | | + + + + + + | MCV POC | 98.8 (H) | 80.0 - 96.0 fL | [facility] - | | | | | | [facility] | | | | | | [facility], POINT | | | | | | OF CARE | | | | | | TESTS | | + + + + + + | MCH POC | 33.4 (H) | 28.5 - 32.3 pg | [facility] - | | | | | | [facility] | | | | | | [facility], POINT | | | | | | OF CARE | | | | | | TESTS | | + + + + + + | MCHC POC | 33.8 | 33.0 - 35.5 | [facility] - | | | | | g/dL | [facility] | | | | | | [facility] | | | | | | OF CARE | | | | | | TESTS | | + + + + + + | RDW SD, POC | 46.2 | 35.1 - 46.3 fL | [facility] - | | | | | | [facility] | | | | | | [facility] | | | | | | OF CARE | | | | | | TESTS | | + + + + + + | PLT POC | 188 | 150 - 400 | [facility] - [...] + + + + | NEUTROPHIL% | 72.5 (H) | 50.0 - 70.0 % | [facility] - | | | POC | | | [facility] | | | | | | [facility] | | | | | | OF CARE | | | | | | TESTS | | + + + + + + | LYMPH% POC | 17.0 (L) | 18 - 42 % | [...] + + | EOS %, POC | 2.0 | 1.0 - 3.0 % | [facility] [...] + + + + | NEUTROPHIL# | 5.3 | 1.8 - 7.7 | [facility] - [...] + + | [facility] | [address] | [place], [place] | | | [facility] OF [facility] | [address] | [address] | | | TESTS | | | | + + + + + LYMPHOCYTE ACTIVATION(LYMPH RECONSTITUTION/ACTIVATE)BLOOD (05/29/2016 3:14 PM PST) + + | Specimen | + + | Blood - Blood | | (substance) | + + + + + + + | Performing | Address | City/State/Zipcode | Phone Number | | Organization | | | | + + + + + | [facility] | [address] | [place] [address] | | | SERVICES, SPECIAL | [address] | | | | IMM + COAG | | | | + + + + + LIVER SET (AST,ALT,BILI TOTAL,BILI DIRECT,ALK PHOS,ALB,PROT TOTAL) (05/29/2016 3:12 PM PST ) + +---------+ + + [...] + + + | ALT (SGPT) | 58 | <=60 U/L | [facility] | | [...] + +---------+ + + + | [facility] | No Hemo | | [...] | + + + + + | [facility] | [address] | [place] [address] | | | SERVICES, CORE | WALLY [...]
--- OUTSIDE RECORDS SUMMARY | ~2019-05-17 | XMS | Encounter Summary ---
Demographics + + + | Address | [address] | | | [place] [address] | + + + | Home Phone | | + + + | Preferred Language | Unknown | + + + | Marital Status | | + + + | Hinduism Affiliation | SPI | + + + [...] Team Providers + +------+ + | Care Stress Analyst Name | Role | Phone | + +------+ + | Zayda Hinton | PCP | | + +------+ + Reason for Referral Consultation (Routine) + +--------+ + + + + | Status | Reason | Specialty | Diagnoses / | Referred By | Referred To | | | | | Procedures | Contact | Contact | + +--------+ + + + + | Referred | | Otolaryngolog | Diagnoses | Cummins, | Ent Otology | | | | y | Hx of | [place]LY Louise | [address] | | | | | allogeneic | [address] | | | | | stem cell | [address] | [address] | | | | | transplant | Rd | Mailcode: | | | | | ([facility]) | [place], [place] | [address] | | | | | Dizziness | [address] | Physician's | | | | | Procedures | Phone: | Asha | | | | | CONSULT TO | [phone] | [place], [place] | | | | | ENT / | Fax: | [address] | | | | | OTOLARYNGOLO | [phone] | Phone: | | | | | GY | | [phone] | | | | | | | Fax: | | | | | | | [phone] | + +--------+ + + + + Reason for Visit + + + | Reason | Comments | + + + | Transplant follow-up | | + + + Office Visit - E/M Services (Routine) + +--------+ + + + + | Status | Reason | Specialty | Diagnoses / | Referred By | Referred To | | | | | Procedures | Contact | Contact | + +--------+ + + + + | Authorized | | Hematology | Diagnoses | Cook, | [...] | | | | | achieved | [place], [place] | [id number] | | | | | remission | [address] | [facility] | | | | | | Phone: | [facility] | | | | | Procedures | [phone] | [place], [place] | | | | | [place] EST | Fax: | [address] | | | | | PATIENT | [phone] | Phone: | | | | | LEVEL V | | [phone] | | | | | | | Fax: | | | | | | | [phone] | + +--------+ + + + + Encounter Details +--------+---------+ + + + | Date | Type | Department | Care Team | Description | +--------+---------+ + + + | 04/15/ | Office | Center for | Aspen Cummins FNP | 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 | Visit | Hematologic | [address] [facility] | stem cell transplant | | | | Malignancies at | [facility] | (HCC) (Primary Dx); | | | | [facility] | [place], [place] | Personal history of | | | | [address] [facility] | [address] | diseases of the | | | | [facility] Mailcode: | [phone] | blood and | | | | [facility] [place] | | blood-forming organs | | | | [facility] [place], | | and certain | | | | [place] [address] | | disorders involving | | | | [phone] | | the immune mechanism | | | | | | ; Vitamin D | | | | | | deficiency; | | | | | | Dizziness | +--------+---------+ + + + Social History [...] + + + | Blood Pressure | 148/83 | 10/21/2018 11:43 AM | | | | | PDT | | + + + + + | Pulse | 91 | 10/21/2018 11:43 AM | | | | | PDT | | + + + + + | Temperature | 37.2 C (98.9 F) | 10/21/2018 11:43 AM | | | | | PDT | | + + + + + | Respiratory Rate | 14 | 10/21/2018 11:43 AM | | | | | PDT | | + + + + + | Oxygen Saturation | 100% | 10/21/2018 11:43 AM | | | | | PDT | | + + + + + | Inhaled Oxygen | - | - | | | Concentration | | | | + + + + + | Weight | 75.7 kg (166 lb 14.2 | 10/21/2018 11:43 AM | | | | oz) | PDT | | + + + + + | Height | 188.7 cm (6' 2.29") | 10/21/2018 11:43 AM | | | | | PDT | | + + + + + | Body Mass Index | 21.26 | 10/21/2018 11:43 AM | | | | | PDT | | + + + + + documented in this encounter Patient Instructions Patient Instructions Aspen Cummins FNP - 10/21/2018 12:50 PM PDT1. Restart acyclovir 800 mg by mouth twice daily 2. Begin vitamin D 50,000 units by mouth once daily 3. Return to clinic to follow up with either Yari Garcia MD or wi on 11/18/18Electroni florin signed by ORLY Yanes at 10/21/2018 12:47 PM PDT documented in this encounter Progress Notes Aspen Cummins FNP - 10/21/2018 12:50 PM PDT 10/21/2018 [facility] Primary [facility] MD: Yari Garcia MD Primary Oncologist: Yari Garcia MD Diagnosis: AMML, primary refractory Transplant Date: 08/27/15 Donor: MMURD (DPB1 permissive antigen mismatch, male, [id number]) Identifying Data: Khurram Kelly is a 28 y.o. CM with a PMH of pericarditis [...] his L ankle. He was evaluated at [facility] ED on 06/[address] angiogram negative [...] arthralgias, recurrent fevers, pericarditis and CBC abnl, ajzlyn barrera was referred to Oncology for additional evaluation. Marrow studies completed on 05/19/15 s howed a hypercellular marrow (80-90%) with 86% of blast equivalents, comprised of myeloblast s, monoblasts and promonocytes. Concurrent flow cytometry detected 23% myeloid blasts and 60 % immature monocytic cells supporting this diagnosis. 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 He was referred to [facility] for further evaluation and man agement of his newly dx'd AML. Pt was admitted to [facility] on 05/26/15. Peripheral blood was [...] CD34, variable CD56, variable CD117, and dim [id number] mickey; promonocyte immunophenotype (70% by flow): CD11b, [...] L total hip arthroplasty. He is currently 3 years, 2 monthss/p transplant, s/p 6 cyclesof azacitidine and returns to clinic today for scheduled follow-up. Interim History: Clary most recently [facility] by andra 01/07/18. He has been lost to follow up since that time due to insura nce issues. 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 He loves his job, likes to be working. He and his family have moved out of his parent's house due to increased family stress. They are currently living with hi s 's parents and report that life is much better with this move. Continues with c/o R hip pain. He was hoping to have hip surgery last summer while his was on summer break from school but had to postpone due to his insurance. He is scheduled to f/u with Dr. Jeffers next month and hoping to have surgery this summer. Weight continues to fluctuate. He feels he's eating well at intervals but then has periods when he forgets to eat throughout the day because he's not hungry. Then ends up eating dinne r in the evening without additional po intake throughout the day. He finds he does better w hen he eats breakfast with his son; if he eats breakfast, he typically eats normally through out the day. A few months ago he developed dizziness on rising in the morning; denied lightheadedness. 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 Per pt, he and his PCP consulted with our service wh o recommended restarting prednisone 5 mg po daily, then increased to 10 mg po daily. This bower s resulted in an improvement but not resolution of his symptoms. He stopped MMF and acyclovir ~7 months ago. States he never got around to refilling them. Scheduled for ophthalmology consult today due to persistent ocular irritation of increased pressure, drainage/crusting and intermittent blurred vision. Symptoms are constant some days , better other day. Denies c/o oral sensitivity, difficulty swallowing, SOB/ROJAS, N/V/D or s kin changes. Review of Systems Constitutional: Positive for weight loss. Negative for chills, fever and malaise/fatigue. HENT: Negative for headaches, congestion and sore throat. Respiratory: Negative for cough and shortness of breath. Cardiovascular: Negative for chest pain and leg swelling. Gastrointestinal: Negative for abdominal pain, diarrhea, nausea and vomiting. Genitourinary: Negative for dysuria. Musculoskeletal: Positive for joint pain (R hip). Negative for falls and myalgias. Skin: Negative for rash. Neurological: Positive for dizziness. Negative for tingling, tremors and weakness. All other systems reviewed and are negative. Current Outpatient Prescriptions Medication Sig acyclovir 800 mg oral tablet Take 1 tablet by mouth two times daily. (Patient not betzaida wang: Reported on 10/21/2018) albuterol 90 mcg/actuation inhalation HFA aerosol inhaler Inhale 1-2 puffs by mouth ne ry four hours as needed. ALPRAZolam 0.5 mg oral tablet Take 1 tablet by mouth as needed. Indications: anxiety (P atient taking differently: Take 0.5 mg by mouth three times daily as needed. Indications: a nxiety) mycophenolate delayed release 360 mg oral tablet,delayed release (DR/EC) Take 1 tablet by mouth two times daily. Indications: gvhd (Patient not taking: Reported on 10/21/2018) predniSONE 10 mg oral tablet Take 10 mg by mouth once daily. No current facility-administered medications for this visit. No Known Allergies Vitals: 10/21/18 1143 BP: 148/83 BP Location: Right upper arm Patient Position: Sitting Pulse: 91 Resp: 14 Temp: 37.2 C (98.9 F) TempSrc: Oral SpO2: 100% Weight: 75.7 kg (166 lb 14.2 oz) Height: 1.887 m (6' 2.29") PainSc: 05 - Moderate to Severe PainLoc: Hip (Right) Physical Exam Constitutional: Thin CM in NAD HENT: Head: Normocephalic and atraumatic. Mouth/Throat: Oropharynx is clear and moist. No oropharyngeal exudate. Eyes: Right conjunctiva is injected. Left conjunctiva is injected. Cardiovascular: Normal rate, regular rhythm, normal heart [...] reviewed. Lab Results Component Value Date WBC 8.7 10/21/2018 HB 13.5 10/21/2018 HCT 40.7 10/21/2018 PLT 265 10/21/2018 MCV 91.5 10/21/2018 RDW 44.2 07/19/2017 Lab Results Component Value Date BICARB 31 (H) 10/21/2018 TBILI 0.7 10/21/2018 CA 9.3 10/21/2018 CL 104 10/21/2018 CR 0.7 10/21/2018 GLU 113 (H) 10/21/2018 AP 58 10/21/2018 TP 7.3 10/21/2018 BUN 14 10/21/2018 ALB 4.0 10/21/2018 AST 33 10/21/2018 NA 141 10/21/2018 K 3.9 10/21/2018 ALT 28 10/21/2018 Assessment/Plan: 1. 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 Peripheral blood counts remain WNL. He has no e vidence of disease by peripheral smear. -->continueCBC at least q6 months and prn --> no additional marrow studies indicated providing peripheral blood counts remain stable 2. 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 He initially responded but flared during taper. He also developed low-level nausea and abd discomfort concerning for GvHD, emp irically treated with oral non-absorbables with resolution. - He had tapered prednisone to 10 mg po daily when he developed a rash for which he was see n in the ED in [place] in late 01/21. Prednisone was increased back [...] fluconazole with resolution of upper GI symptoms - tapered off of tacrolimus as of 08/03/17 without flair - most recent PFTs 09/17/17 show no evidence of FLORESITA aside from slightly increased RV - prednisone d/c'd 10/25/17 - self d/c'd MMF ~04/26 due to insurance issues - restarted prednisone ~1 month ago due to dizziness; initially started 5 mg po daily then increased to 10 mg po daily. This has resulted in improvement but not resolution of his symp toms. It is unlikely these symptoms are related to GvHD, concern for ENT process. -TODAY: At present, pt reports ongoing ocular irritation for which he's being evaluated i n [facility] this afternoon. Denies other s/s active GvHD at this time. -->continue prednisone 10 mg po daily for now --> ophthalmology consult pending today --> ENT consult to evaluate dizziness --> continue to monitor for s/s active GvHD every visit 3. Infectious Disease: Afebrile without localizing s/s infection. Currently off all pro phylactic antimicrobials after self d/c'ing acyclovir; didn't refill this medication after h e ran out.Post-transplant vaccines up-to-date save MMR and PPSV23; pt is ineligible for th ose vaccines while he remains on IST. -->encouraged pt to restart acyclovir 800 mg po BID; refill sent to [facility] --> hold Shingrix until pt off all IST --> hold MMR and PPSV23 until pt off all IST x 1 year, then re-evaluate immune status 4. Fluid, Electrolyte and Nutrition: Eating well intermittently, weight up and down. Curr ently stable. Often doesn't feel hungry and forgets to eat. No c/o N/V/D. His electrolytes a re reviewed and are within acceptable limits. -->encouraged pt to eat a well balanced diet, three consistent meals per day with snacks prn -->maintain adequate hydration 5. Musculoskeletal: Hx of intermittent L hip pain. MRI 07/25/16 showed bilateral femoral hea d osteonecrosis with subchondral fracture and collapse of weightbearing L femoral head with suspected early cartilage disease. Underwent a total L hip arthroplasty on 09/07/16, pain reso lved. Developed severe R hip pain. Evaluated by Dr. Jeffers on 04/02/17; per pt report, though t there may be a hairline fracture causing his pain. Pain initially resolved without additio nal intervention, but pain recurring with ambulation. He had been planning for hip replacem ent last summer when his was out of school but he did not schedule. He is now schedule d to reconnect with Dr. Jeffers next month. -->f/u with Dr. Jeffers as scheduled 6. Psychosocial: Hx anxiety.This had been well controlled and pt had tapered xanax to 0 .5 mg po daily, continued RSO and marijuana tinctures. Hx recurrent anxiety after d/c'ing pr ednisone. Cortisol stim test WNL; no evidence of adrenal insufficiency. Pt denies anxiety at this time, does not feel his symptoms of dizziness are related to anxiety. He has a good relationship with his PCP, does not feel therapy would benefit him at this time. -->continue xanax 0.5 mg po prn; this is prescribed by his PCP --> again encouraged pt to consider therapy to better manage his anxiety 7. Endocrine: VitD 25OH 15. HgbA1c 5.9. --> vitD 50,000 units po weekly x 8 week with repeat [id number] at completion of therapy --> repeat HgbA1c in 3 months with consideration for fasting labs if elevated 8. Follow up -->RTC to f/u with me in 1 month per pt request, sooner prn [facility] AT [address] Mailcode: [id number] [place] [address] documented in this enc ounter [...] Rd | | | | | | [place], [place] | | | | | | [address] | | | | | | [phone] | | | | | | | | +--------+---------+ + + + documented as of this encounter Results [facility] - COMPLETE METABOLIC SET (11/18/2018 10:07 AM PDT) + +---------+ + + + | Component | Value | Ref Range | Performed | Pathologist | | | | | At | Signature | + +---------+ + + + | GLUCOSE, | 98 | 70 - 99 mg/dL | [facility] | | | PLASMA | | | LABORATORY | | | (LAB) | | | SERVICES, | | | | | | CORE | | + +---------+ + + + | BUN, PLASMA | 12 | 6 - 20 mg/dL | [facility] | | | (LAB) | | | LABORATORY | | | | | | SERVICES, | | | | | | CORE | | + +---------+ + + + | CREATININE | 0.90 | 0.70 - 1.30 | [facility] | | | PLASMA | | mg/dL | LABORATORY | | | (LAB) | | | SERVICES, | | | | | | CORE | | + +---------+ + + + | EGFR | >60 | >60 mL/min | [facility] | | | - | | | LABORATORY | | | ISRAELI | | | SERVICES, | | | | | | CORE | | + +---------+ + + + | EGFR NON | >60 | >60 mL/min | [facility] | | | -JOANNE | | | LABORATORY | | | RICAN | | | SERVICES, | | | | | | CORE | | + +---------+ + + + | SODIUM, | 143 | 136 - 145 | [facility] | | | PLASMA | | mmol/L | LABORATORY | | | (LAB) | | | SERVICES, | | | | | | CORE | | + +---------+ + + + | POTASSIUM, | 4.2 | 3.4 - 5.0 | [facility] | | | PLASMA | | mmol/L | LABORATORY | | | (LAB) | | | SERVICES, | | | | | | CORE | | + +---------+ + + + | CHLORIDE, | 108 | 97 - 108 mmol/L | [facility] | | | PLASMA | | | LABORATORY | | | (LAB) | | | SERVICES, | | | | | | CORE | | + +---------+ + + + | TOTAL CO2, | 30 | 21 - 32 mmol/L | [facility] [...] +---------+ + + + | CALCIUM(ALB | 9.3 | 8.6 - 10.2 | [...] + + + | ALT (SGPT) | 29 | <=60 U/L | [facility] | | | | | | LABORATORY | | | | | | SERVICES, | | | | | | CORE | | + +---------+ + + + | ANION GAP | 5 | 4 - 11 mmol/L | [facility] | | | | [...] using the MDRD equation recommended by the National | [facility] | | Kidney Disease Education Program. Estimated GFR Interpretive | LABORATORY | | Information: <60 mL/min/1.73 sq m Chronic Kidney | SERVICES, CORE | | Disease <15 mL/min/1.73 sq m Kidney Failure | | | Estimated GFR greater than 60 mL/min/1.73 sq m is of limited clinical | | | value. The MDRD equation is not valid in the following situations: - | | | Patients under 18 years of age - Severe malnutrition or obesity - | | | Vegetarian diet - Rapidly changing kidney function - Amputees, | | | paraplegics, or other muscle-wasting diseses | | + + + + + + + + | Performing | Address | City/State/Zipcode | Phone Number | | Organization | | | | + + + + + | [facility] | [address] | [place] [address] | | | SERVICES, CORE | [address] | | | + + + + + [facility] - CBC ONLY (11/18/2018 10:07 AM PDT) + + + + + + | Component | Value | Ref Range | Performed | Pathologist | | | | | At | Signature | + + + + + + | WHITE CELL | 7.20 | 3.50 - 10.80 | [facility] | | | COUNT | | K/cu mm | LABORATORY | | | | | | SERVICES, | | | | | | CORE | | + + + + + + | RED CELL | 4.35 (L) | 4.50 - 6.00 | [facility] | | | COUNT | | M/cu mm | LABORATORY | | | | | | SERVICES, | | | | | | CORE | | + + + + + + | HEMOGLOBIN | 13.2 (L) | 13.5 - 17.5 | [facility] | | | | | g/dL | LABORATORY | | | | | | SERVICES, | | | | | | CORE | | + + + + + + | HEMATOCRIT | 40.9 (L) | 41.0 - 53.0 % | [facility] | | | | | | LABORATORY | | | | | | SERVICES, | | | | | | CORE | | + + + + + + | MCV | 94.0 | 80.0 - 100.0 fL | [facility] | | | | | | LABORATORY | | | | | | SERVICES, | | | | | | CORE | | + + + + + + | MCHC | 32.3 | 32.0 - 36.0 | [facility] | | | | | g/dL | LABORATORY | | | | | | SERVICES, | | | | | | CORE | | + + + + + + | RDW SD | 44.4 | 35.1 - 46.3 fL | [facility] | | | | | | LABORATORY | | | | | | SERVICES, | | | | | | CORE | | + + + + + + | PLATELET | 261 | 150 - 400 K/cu | [facility] | | | COUNT | | mm | LABORATORY | | | | | | SERVICES, | | | | | | CORE | | + + + + + + | MPV | 8.6 (L) | 9.7 - 12.3 fL | [...] [facility] | [address] | [place] [address] | | | SERVICES, CORE | [address] | | | + + + + + VITAMIN D, 25-HYDROXY, SERUM (10/21/2018 11:39 AM PDT) + + + + + + | Component | Value | Ref Range | Performed | Pathologist | | | | | At | Signature | + + + + + + | VITAMIN D | 15.4 (L) | 30 - 80 ng/mL | [...] [facility] | [address] | [place] [address] | | | SERVICES, CORE | [address] | | | + + + + + TSH (10/21/2018 11:39 AM PDT) + +-------+ + + + | Component | Value | Ref Range | Performed | Pathologist | | | | | At | Signature | + +-------+ + + + | TSH | 1.06 | 0.40 - 3.98 | [facility] | [...] | + + + + + | [facility] | [address] | [place] [address] | | | SERVICES, CORE | [address] | | | + + + + + HEMOGLOBIN A1C, BLOOD (10/21/2018 11:39 AM PDT) + + + + + + | Component | Value | Ref Range | Performed | Pathologist | | | | | At | Signature | + + + + + + | HEMOGLOBIN | 5.9 (H)Comment: Hgb A1C | <5.7 % | [facility] | | | A1C | Interpretive | | LABORATORY | | | | Information: | | SERVICES, | | | | <5.7% - Normal | | SPECIAL IMM | | | | 5.7-6.4% - Consistent | | + COAG | | | | with pre-diabetes | | | | | | >6.4% - Consistent | | | | | | with diabetes | | | | | | | | | | + + + + + + + + | Specimen | + + | Blood - Blood | | (substance) | + + + + + | Narrative | Performed At | + + + | Alternate forms of testing such as fructosamine should be | [facility] | | considered for monitoring chcf glycemic control in patients with: | LABORATORY | | Increased red cell turnover, certain hemoglobinopathies (e.g., HbS, | SERVICES, | | HbE, HbC and thalassemia syndromes), anemias, blood loss, chronic | SPECIAL IMM + | | liver disease and hemochromatosis (artefactually low HbA1c); iron | [facility] | | deficiency anemia (artefactually high HbA1c due to enhanced glycation | | | of hemoglobin). 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
--- OUTSIDE RECORDS SUMMARY | ~2019-05-17 | XMS | Encounter Summary ---
Demographics + + + | Address | [address] | | | [place] [address] | + + + | Home Phone [...] Team Providers + +------+ + | Care Advertising Copywriter Name | Role | Phone | + +------+ + | Zayda Hinton | PCP | | + +------+ + Encounter Details +--------+ + + + + | Date | Type | Department | Care Team | Description | +--------+ + + + + | 08/25/ | Pharmacy | Specialty Pharmacy | | | | 2016 | Visit | Services [address] | | | | | | [address] | | | | | | [place], [place] | | | | | | [address] | | | | | | [phone] | | | +--------+ + + + [...] Rd | | | | | | [place], [place] | | | | | | [address] | | | | | | [phone] | | | | | | | | +--------+---------+ + + + documented as of this encounter Visit Diagnoses Not on filedocumented in this encounter"
--- OUTSIDE RECORDS SUMMARY | ~2019-05-17 | XMS | Encounter Summary ---
Demographics + + + | Address | [address] | | | [place] [address] | + + + | Home Phone | | + + + | Preferred Language | Unknown | + + + | Marital Status | | + + + | Mosque Affiliation | SPI | + + + [...] Team Providers + +------+ + | Care Small Business Sales Representative Name | Role | Phone | + +------+ + | Zayda Hinton | PCP | | + +------+ + Encounter Details +--------+ + + + + | Date | Type | Department | Care Team | Description | +--------+ + + + + | 10/02/ | Pharmacy | Specialty Pharmacy | | | | 2016 | Visit | Services [address] | | | | | | [address] | | | | | | [place], [place] | | | | | | [address] | | | | | | [phone] | | | +--------+ + + + [...] 2019 | Visit | Malignancy | [address] [facility] | | | | | | [address] | | | | | | [place], [place] | | | | | | [address] | | | | | | [phone] | | | | | | | | +--------+---------+ + + + documented as of this encounter Visit Diagnoses Not on filedocumented in this encounter"
--- OUTSIDE RECORDS SUMMARY | ~2019-05-17 | XMS | Encounter Summary ---
Demographics + + + | Address | [address] | | | [place] [address] | + + + | Home Phone | | + + + | Preferred Language | Unknown | + + + | Marital Status | | + + + | Sabianist Affiliation | SPI | + + + | Race | White | + + + | Ethnic Group | Not or | + + + Author + + + | Author | [facility] | + + + | Organization | [facility] | + + + | Address | Unknown | + + + | Phone | Unavailable | + + + Support + + +---------+ + | Name | Relationship | Address | Phone | + + +---------+ + | Gabriel Kelly | ECON | Unknown | | + + +---------+ + Care Team Providers + +------+ + | Care Mining Helper Name | Role | Phone | + +------+ + | Pending Pcp Addition | PCP | Unavailable | + +------+ + Reason for Visit + + + | Reason | Comments | + + + | Biopsy | BMBX | + + + | Immunization | Influenza & Pneumococcal | + + + Benefits Check (Routine) [...] | | | | | | [place], | | | | | | | [place] | | | | | | | [address] | | | | | | | Phone: | | | | | | | [phone] | | | | | | | Fax: | | | | | | | [phone] | +--------+--------+ + + + + Encounter Details +--------+ + + + + | Date | Type | Department | Care Team | Description | +--------+ + + + + | 04/19/ | Clinical | [facility] | | Biopsy ([facility]); | | 2015 | Support | Hematologic | | Immunization | | | Staff | [facility] | | (Influenza & | | | | [address] | | Pneumococcal) | | | | Wally Burger Mailcode: | | | | | | [id number] | | | | | | [place], | | | | | | [place] [address] | | | | | | [phone] | | | +--------+ + + + [...] documented as of this encounter Progress Notes Queenie Carcamo RN - 04/19/2016 2:35 PM PDTBone Marrow Biopsy: 22 gauge PIV placed in patient s left antcubitae, using an IV start kit. PIV with excell ent blood return. Labs drawn and sent. PIV flushed with 10 mL NS without any problems. Steri le transparent dressing applied. Patient tolerated procedure well. Patient premedicated with 4 mg IV Morphine per ORLY Yanes orders. Bone marrow biopsy completed. Patient observed for 15 minutes post-procedure. Bone Marrow biopsy dressing dry and intact. Post bone marrow biopsy instructions reviewed w ith patient/caregiver. Patient instructed to keep dressing on X 24 hours then remove dressin g and assess site for redness, swelling or drainage and to call triage nurse if it develops any of these symptoms or develops worsening pain or discomfort at biopsy site. Patient may l eave dressing off if site scabbed over otherwise apply band aid until scabbed over and reass ess area every 24 hours until healed. Patient/caregiver states understanding. The patient was screened for the following contraindications to influenza vaccine and respo nses were as follows: Febrile illness today? No Allergy to eggs? No Prior history of a reaction to flu vaccine? No Prior history of Guillain-Granger syndrome? No (For patients receiving Fluarix): Allergy or sensitivity to Latex? No Influenza and Pneumococcal vaccine information given to patient and reviewed by patient. Influenza vaccine from floor stock given IM in left deltoid per protocol. Pneumococcal vaccine from floor stock given IM in right deltoid per protocol. Patient tolerated injection well. PIV de-accessed per protocol. Pt tolerated well. Pt discharged ambulatory with . documented in this encoun ter Plan of Treatment +--------+---------+ + + + | Date | Type | Specialty | Care Team | Description | +--------+---------+ + + + | 05/19/ | Lab | Phlebotomy | | | | 2018 | | | | | +--------+---------+ + + + | 05/19/ | Office | Hematology | Yari Garcia MD | | | 2018 | Visit | Malignancy | [address] [facility] | | | | | | [address] | | | | | | [place], [place] | | | | | | [address] | | | | | | [phone] | | | | | | | | +--------+---------+ + + + documented as of this encounter Procedures + +--------+ + + + | Procedure Name | Priori | Date/Time | Associated Diagnosis | Comments | | | ty | | | | + +--------+ + + + | ENGRAFTMENT | Routin | 04/19/2016 | 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 | | | | | remission (HCC) | | + +--------+ + + + | CYTOGENETICS BONE | Routin | 04/19/2016 | Acute | Results for this | | MARROW CHROMOSOME | e | 2:42 PM | myelomonocytic | procedure are in the | | ANALYSIS (W/FISH) | | PDT | leukemia in | results section. | | | | | remission (HCC) | | + +--------+ + + + | LEUKEMIA/LYMPHOMA | Routin | 04/19/2016 | Acute | | | MARKERS - BONE | e | 2:42 PM | myelomonocytic | | | MARROW | | PDT | leukemia in | | | | | | remission (HCC) | | + +--------+ + + + | BMP + MAG, POC CHM | Routin | 04/19/2016 | S/P allogeneic | Results for this | | | e | 2:34 PM | bone marrow | procedure are in the | | | | PDT | transplant (HCC) | results section. 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) | | + +--------+ + + + | CMV PCR | Routin | 04/19/2016 | S/P allogeneic | Results for this | | QUANTITATION, PLASMA | e | 2:29 PM | bone marrow | procedure are in the | | | | PDT | transplant (HCC) | results section. 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) | | + +--------+ + + + | LIVER SET | Urgent | 04/19/2016 | S/P allogeneic | Results for this | | (AST,ALT,BILI | | 2:29 PM | bone marrow | procedure are in the | | TOTAL,BILI | | PDT | transplant (HCC) | results section. | | DIRECT,ALK | | | Acute myelomonocytic | | | PHOS,ALB,PROT TOTAL) | | | leukemia in | | | | | | remission (HCC) | | + +--------+ + + + | CBC AND AUTO DIFF | Urgent | 04/19/2016 | Acute | Results for this | | | | 2:14 PM | myelomonocytic | procedure are in the | | | | PDT | leukemia in | results section. | | | | | remission (HCC) | | + +--------+ + + + | CBC, WITH | Urgent | 04/19/2016 | Acute | Results for this | | DIFFERENTIAL | | 2:14 PM | myelomonocytic | procedure are in the | | | | PDT | leukemia in | results section. | | | | | remission (HCC) | | + +--------+ + + + | ENGRAFTMENT | Routin | 04/19/2016 | Acute | Results for this | | POST-TRANSPLANT, | e | | myelomonocytic | procedure are in the | | BONE MARROW (PP) | | | leukemia in | results section. | | | | | remission (HCC) | | + +--------+ + + + | ENGRAFTMENT | Routin | 04/19/2016 | Acute | Results for this | | POST-TRANSPLANT, | e | | myelomonocytic | procedure are in the | | BONE MARROW | | | leukemia in | results section. | | | | | remission (HCC) | | + +--------+ + + + | GENETRAILS AML/MDS | Routin | 04/19/2016 | Acute | Results for this | | GENE MUTATION PANEL, | e | | myelomonocytic | procedure are in the | | BM (PP) | | | leukemia in | results section. | | | | | remission (HCC) | | + +--------+ + + + | GENETRAILS AML/MDS | Routin | 04/19/2016 | Acute | Results for this | | GENE MUTATION PANEL, | e | | myelomonocytic | procedure are in the | | BM | | | leukemia in | results section. | | | | | remission (HCC) | | + +--------+ + + + | CYTOGENETICS BONE | Routin | 04/19/2016 | Acute | Results for this | | MARROW CHROMOSOME | e | | myelomonocytic | procedure are in the | | ANALYSIS (W/FISH) | | | leukemia in | results section. | | (PP) | | | remission (HCC) | | + +--------+ + + + | LEUKEMIA/LYMPHOMA | Routin | 04/19/2016 | Acute | Results for this | | MARKERS - BONE | e | | myelomonocytic | procedure are in the | | MARROW (PP) | | | leukemia in | results section. | | | | | remission (HCC) | | + +--------+ + + + | LEUKEMIA/LYMPHOMA | Routin | 04/19/2016 | Acute | Results for this | | MARKERS - BONE | e | | myelomonocytic | procedure are in the | | MARROW | | | leukemia in | results section. | | | | | remission (HCC) | | + +--------+ + + + | CYTOGENETICS BONE | Routin | 04/19/2016 | Acute | Results for this | | MARROW CHROMOSOME | e | | myelomonocytic | procedure are in the | | ANALYSIS (W/FISH) | | | leukemia in | results section. | | | | | remission (HCC) | | + +--------+ + + + documented in this encounter Results LEUKEMIA/LYMPHOMA MARKERS - BONE MARROW (LABEL) (04/19/2016 2:42 PM PDT) + + | Specimen | + + | Bone marrow - Bone | | marrow structure | | (body structure) | + + + + + + + | Performing | Address | City/State/Zipcode | Phone Number | | Organization | | | | + + + + + | [facility] | [address] | [place] [address] | | | SERVICES, SPECIAL | [address] | | | | IMM + COAG | | | | + + + + + GENETRAILS AML/MDS GENE MUTATION PANEL, BM (LABEL) (04/19/2016 2:42 PM PDT) + + + + + + | Component | Value | Ref Range | Performed | Pathologist | | | | | At | Signature | + + + + + + | LABEL ONLY | Please see lab report | | [facility] | | | - [facility] | for result. | | DIAGNOSTIC | | | | | | | | | | | | LABORATORIE | | | [...] | + + + + + | [facility] | [address], | [place] [address] | | | DIAGNOSTIC | [address] | | | | LABORATORIES | | | | + + + + + CYTOGENETICS BONE MARROW CHROMOSOME ANALYSIS (W/FISH) (LABEL) (04/19/2016 2:42 PM PDT) + + + + + + | Component | Value | Ref Range | Performed | Pathologist | | | | | At | Signature | + + + + + + | LABEL ONLY | Please see lab report | | [facility] | | | - [facility] | for result. | | DIAGNOSTIC | | | | | | | | | | | | LABORATORIE | | | [...] + + + + | [facility] | [address] | [place] [address] | | | DIAGNOSTIC | [address] | | | | LABORATORIES | | | | + + + + + ENGRAFTMENT POST TRANSPLANT, BONE MARROW (LABEL) (04/19/2016 2:42 PM PDT) + + | Specimen | + + | Bone marrow - Bone | | marrow structure | | (body structure) | + + + + + + + | Performing | Address | City/State/Zipcode | Phone Number | | Organization | | | | + + + + + | [facility] | [address] | [place] [address] | | | DIAGNOSTIC | [address] | | | | LABORATORIES | | | | + + + + + BMP + MAG, POC CHM (04/19/2016 2:34 PM PDT) + +---------+ + + + [...] +---------+ + + + | POTASSIUM, | 3.4 | 3.4 - 5.0 | [facility] - [...] | TOTAL, POC | | mg/dL | [facility] | | | | | | RUTHIE CARTER | | | | | | OF CARE | | | | | | TESTS | | + +---------+ + + + | BUN, POC | 10 | 6 - 20 mg/dL | [facility] - | | | | | | [facility] | | | [...] + + + | LDH, POC | 267 (H) | 0 - 206 U/L | [...] [facility] | [address] | [place], [place] | | | RUTHIE CARTER OF [facility] | [facility] | [address] | | | TESTS | | | | + + + + + LIVER SET (AST,ALT,BILI TOTAL,BILI DIRECT,ALK PHOS,ALB,PROT TOTAL) (04/19/2016 2:29 PM PDT ) + +---------+ + + [...] | + + + + + | [facility] | [address] | [place] [address] | | | SERVICES, CORE | [address] | | | + + + + + CMV PCR QUANTITATION, PLASMA (04/19/2016 2:29 PM PDT) + + + + + [...] 2 fold may not reflect true | [facility] | | biological changes and [...] | characteristics determined by the [facility] | | | [facility] Diagnostic [facility]. [...] | Act of 1988. The [facility] Molecular | | | Diagnostic Center is a fully licensed and/or accredited clinical | | | laboratory under CLIA, CAP, and the [facility]. | | + + + + + + + + | Performing | Address | City/State/Zipcode | Phone Number | | Organization | | | | + + + + + | [facility] | [address] | [place] [address] | | | DIAGNOSTIC | [address] | | | | LABORATORIES | | | | + + + + + CBC AND AUTO DIFF (04/19/2016 2:14 PM PDT) + + + + + + | Component | Value | Ref Range | Performed | Pathologist | | | | | At | Signature | + + + + + + | WHITE CELL | 7.49 | 4.40 - 11.00 | [facility] | | | COUNT | | K/cu mm | LABORATORY | | | | | | SERVICES, | | | | | | CORE | | + + + + + + | RED CELL | 4.10 (L) | 4.50 - 6.00 | [facility] [...] + + + + | HEMATOCRIT | 40.0 (L) | 41.0 - 53.0 % | [facility] | | | | | | LABORATORY | | | | | | SERVICES, | | | | | | CORE | | + + + + + + | MCV | 97.6 (H) | 80.0 - 96.0 fL | [facility] | | | | | | LABORATORY | | | | | | SERVICES, | | | | | | CORE | | + + + + + + | MCHC | 34.8 | 33.0 - 35.5 | [facility] | [...] + + + + | PLATELET | 203 | 150 - 400 K/cu | [facility] [...] + + + + | NEUTROPHIL | 70.5 (H) | 50.0 - 70.0 % | [facility] | | | % | | | LABORATORY | | | | | | SERVICES, | | | | | | CORE | | + + + + + + | LYMPHOCYTE | 18.4 | 18.0 - 42.0 % | [facility] | | | % | | | LABORATORY | | | | | | SERVICES, | | | | | | CORE | | + + + + + + | MONOCYTE % | 7.9 | 3.5 - 9.0 % | [facility] | | | | | | LABORATORY | | | | | | SERVICES, | | | | | | CORE | | + + + + + + | EOS % | 1.5 | 1.0 - 3.0 % | [facility] | | | | | | LABORATORY | | | | | | SERVICES, | | | | | | CORE | | + + + + + + | BASO % | 0.9 | 0.0 - 2.0 % | [facility] | | | | | | LABORATORY | | | | | | SERVICES, | | | | | | CORE | | + + + + + + | IG% | 0.8 (H)Comment: Immature | 0.0 - 0.6 % [...] + + + + | NEUTROPHIL | 5.28 | 1.80 - 7.70 | [facility] | | | # | | K/cu mm | LABORATORY | | | | | | SERVICES, | | | | | | CORE | | + + + + + + | LYMPHOCYTE | 1.38 | 1.00 - 4.80 | [facility] | | | # | | K/cu mm | LABORATORY | | | | | | SERVICES, | | | | | | CORE | | + + + + + + | MONOCYTE # | 0.59 | 0.10 - 0.90 | [facility] | | | | | K/cu mm | LABORATORY | | | | | | SERVICES, | | | | | | CORE | | + + + + + + | EOS # | 0.11 | 0.00 - 0.50 | [facility] | | | | | K/cu mm | LABORATORY | | | | | | SERVICES, | | | | | | CORE | | + + + + + + | BASO # | 0.07 | 0.00 - 0.10 | [facility] | | | | | K/cu mm | LABORATORY | | | | | | SERVICES, | | | | | | CORE | | + + + + + + | IG# | 0.06 (H) | 0.00 - 0.03 | [facility] [...] | included in the neutrophil count. | [facility] CORE | + + + + + + + + | Performing | Address | City/State/Zipcode | Phone Number | | Organization | | | | + + + + + | [facility] | [address] | [place] [address] | | | SERVICES, CORE | [address] | | | + + + + + LEUKEMIA/LYMPHOMA MARKERS - BONE MARROW (PP) (04/19/2016) + + + + + + | Component | Value | Ref Range | Performed | Pathologist | | | | | At | Signature | + + + + + + | HEMATOPATHO | SOURCE OF SPECIMEN:A | | [facility] | | | LOGY | Bone Marrow Aspirate, | | DEPARTMENT | | | | 1x1mL EDTA, 1x2mL | | OF | | | | heparinizedsyringeSOURCE | | PATHOLOGY | | | | OF SPECIMEN:B Bone | | | | | | Marrow ClotSOURCE OF | | | | | | SPECIMEN:C Bone Marrow | | | | | | BiopsySOURCE OF | | | | | | SPECIMEN:D Peripheral | | | | | | Blood Clinical | | | | | | History:The patient is a | | | | | | 25 year old male with | | | | | | 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 Final | | | | | | Pathologic | | | | | | Diagnosis:Peripheral | | | | | | blood, bone marrow | | | | | | aspirate, clot and | | | | | | biopsy: - Patchy | | | | | | hypocellular (less than | | | | | | 5% to 50%) bone marrow | | | | | | withtrilineage | | | | | | hematopoiesis - | | | | | | Myeloid blasts less than | | | | | | 3% Note: No | | | | | | blasts with the aberrant | | | | | | Immunophenotype seen | | | | | | initially are seenhere. | | | | | | B cells are essential | | | | | | absent and T cells have | | | | | | a reversed CD4:MI2dclse. | | | | | | Please correlate these | | | | | | findings with | | | | | | cytogenetic/molecular | | | | | | results. Case seen | | | | | | by:Otilia Spicer M.D. | | | | | | / Surgical Pathology | | | | | | FellowKen Kellie Kapoor, | | | | | | M.D./Pathologist | | | | | | Gross Description:Bone | | | | | | marrow clot: several | | | | | | small fragment , 0.6 x | | | | | | 0.5 x 0.1 cm in | | | | | | aggregate, entire | | | | | | specimen is filtered and | | | | | | submitted Bone | | | | | | marrow biopsy: 1.6 x 0.2 | | | | | | x 0.2 cm ML | | | | | | Both clot and the core | | | | | | biopsy were fixed in | | | | | | formalin and the core | | | | | | biopsywas decalcified.A | | | | | | Umanzor-stained | | | | | | peripheral blood smear | | | | | | and a cytospin of the | | | | | | cellsuspension were | | | | | | prepared for morphologic | | | | | | correlation with the | | | | | | flowcytometry results. | | | | | | Microscopic | | | | | | Description:Peripheral | | | | | | Blood Smear: | | | | | | Morphologic review of | | | | | | the peripheral blood | | | | | | smearcorrelates with | | | | | | reported CBC values. The | | | | | | red blood cells show | | | | | | mildanisopoikilocytosis. | | | | | | Rare myeloid precursors | | | | | | are seen. Neutrophils | | | | | | shownormal nuclear | | | | | | lobation and cytoplasmic | | | | | | granularity. Monocytes | | | | | | are mature.No | | | | | | circulating blasts are | | | | | | identified. The | | | | | | lymphocytes are | | | | | | heterogeneous andare | | | | | | within the reactive | | | | | | morphologic spectrum. | | | | | | Platelets show | | | | | | normalgranularity. | | | | | | Bone Marrow Aspirate: | | | | | | The bone marrow | | | | | | aspirate smears are | | | | | | adequate andcontain | | | | | | particles for | | | | | | evaluation. There is | | | | | | full maturation of | | | | | | myeloid anderythroid | | | | | | lineages without | | | | | | significant dysplastic | | | | | | changes. The myeloid | | | | | | toerythroid ratio is | | | | | | 1.8:1. Megakaryocytes | | | | | | are present and | | | | | | demonstrate anormal | | | | | | spectrum of size and | | | | | | nuclear lobation. | | | | | | Lymphocytes are | | | | | | predominatelysmall and | | | | | | mature appearing. Blasts | | | | | | are not increased. | | | | | | Plasma cells are | | | | | | notincreased. The touch | | | | | | imprints show similar | | | | | | findings. A bone | | | | | | marrow aspirate | | | | | | differential count | | | | | | includes: Myeloid | | | | | | [id number]%, erythroid | | | | | | precursors 34%, | | | | | | lymphocytes 3.5%, blasts | | | | | | 1.5%. Bone Marrow | | | | | | Biopsy and Clot | | | | | | Section: The bone | | | | | | marrow biopsy has 0.8 cm | | | | | | ofevaluable marrow. | | | | | | Cellularity is patchy | | | | | | ranging from 10-20% and | | | | | | thecomposition is | | | | | | similar to the aspirate. | | | | | | There is trilineage | | | | | | hematopoiesis.No | | | | | | atypical lymphoid cell | | | | | | clusters or sheets of | | | | | | blasts are | | | | | | identified.Megakaryocyte | | | | | | s are normal in number | | | | | | and morphology. The clot | | | | | | section showsfindings | | | | | | similar to the biopsy. | | | | | | Flow Cytometry | | | | | | Analysis: The analysis | | | | | | was performed by flow | | | | | | cytometry onthe bone | | | | | | marrow aspirate. CD34+ | | | | | | blasts comprise less | | | | | | than 1% of WBCs.Maturing | | | | | | myeloid precursors and | | | | | | monocytic cells | | | | | | demonstrate a | | | | | | normalpattern of | | | | | | myelomonocytic antigen | | | | | | expression. Lymphocytes | | | | | | account for 5% ofWBCs | | | | | | and include 80% T cells | | | | | | and 13% NK cells. T | | | | | | cells show a CD4:CD8 | | | | | | ratioof 0.5:1 without | | | | | | aberrant antigen | | | | | | expression. B cells are | | | | | | rare to absent.Please | | | | | | see below for antibodies | | | | | | tested. | | | | | | Antibodies Tested | | | | | | CD2 sCD3 CD4 CD5 | | | | | | CD7 CD8 CD10 | | | | | | [id number] CD14 CD15 CD16 | | | | | | CD19 CD20 CD33 [id number] | | | | | | CD45 CD56 CD58 CD64 | | | | | | CD71 CD117 | | | | | | [id number] sLambda | | | | | | HLA-DR | | | | | | (Analyte specific | | | | | | reagents are used in | | | | | | many laboratory tests | | | | | | necessary forstandard | | | | | | medical care. This | | | | | | test was developed and | | | | | | its | | | | | | performancecharacteristi | | | | | | cs determined by [facility] | | | | | | laboratories. It has | | | | | | not been clearedor | | | | | | approved by the [place] Food | | | | | | and Drug Administration | | | | | | (FDA). FDA does | | | | | | notrequire this test to | | | | | | go through premarket FDA | | | | | | review. This test is | | | | | | usedfor clinical | | | | | | purposes. It should | | | | | | not be regarded as | | | | | | investigational or | | | | | | forresearch. This | | | | | | laboratory is certified | | | | | | under the Clinical | | | | | | LaboratoryImprovement | | | | | | Amendments (CLIA) as | | | | | | qualified to perform | | | | | | high complexityclinical | | | | | | laboratory testing.) | | | | | | Laboratory | | | | | | Data:04/19/2016 02:14PM | | | | | | | | | | | | Ref Range | | | | | | Value WHITE CELL | | | | | | COUNT 4.40-11.00 | | | | | | K/cu mm 7.49RED CELL | | | | | | COUNT 4.50-6.00 M/cu mm | | | | | | 4.10 (L)HEMOGLOBIN | | | | | | 13.5-17.5 g/dL | | | | | | 13.9HEMATOCRIT | | | | | | 41.0-53.0 % 40.0 | | | | | | (L)MCV 80.0-96.0 fL | | | | | | 97.6 (H)MCHC 33.0-35.5 | | | | | | g/dL 34.8RDW SD | | | | | | 35.1-46.3 fL | | | | | | 44.9PLATELET COUNT | | | | | | 150-400 K/cu mm | | | | | | 203MPV 9.7-12.3 fL | | | | | | 8.3 (L)NRBC% | | | | | | 0.0-0.3 % 0.0NRBC# | | | | | | 0.00-0.02 K/cu mm | | | | | | 0.00NEUTROPHIL % | | | | | | 50.0-70.0 % 70.5 | | | | | | (H)LYMPHOCYTE % | | | | | | 18.0-42.0 % | | | | | | 18.4MONOCYTE % | | | | | | 3.5-9.0 % 7.9EOS % | | | | | | 1.0-3.0 % 1.5BASO % | | | | | | 0.0-2.0 % 0.9IMMATURE | | | | | | GRANULOCYTE% | | | | | | 0.0-0.6 % 0.8 | | | | | | (H)Comments: Immature | | | | | | Granulocytes (IG) | | | | | | include metamyelocytes, | | | | | | myelocytes | | | | | | andpromyelocytes. Bands | | | | | | are not included in the | | | | | | IG count. Bands are | | | | | | includedin the | | | | | | neutrophil | | | | | | count.NEUTROPHIL # | | | | | | 1.80-7.70 K/cu mm | | | | | | 5.28LYMPHOCYTE # | | | | | | 1.00-4.80 K/cu mm | | | | | | 1.38MONOCYTE # | | | | | | 0.10-0.90 K/cu mm | | | | | | 0.59EOS # | | | | | | 0.00-0.50 K/cu mm | | | | | | 0.11BASO # | | | | | | 0.00-0.10 K/cu mm | | | | | | 0.07IMMATURE | | | | | | GRANULOCYTE# | | | | | | 0.00-0.03 K/cu mm | | | | | | 0.06 (H) My | | | | | | [...] Diagnostician: | | | | | | Hector Kapoor | | | | | | AugustPathologistSusannahi | | | | | | florin Signed 04/20/2016 | | | | | | 4:35PM | | | | + + + + + + + + | Specimen | + + | Bone marrow - Bone | | marrow | + + + + + | Narrative | Performed At | + + + | | | + + + + + + + + | Performing | Address | City/State/Zipcode | Phone Number | | Organization | | | | + + + + + | [facility] | [address] | [place] [address] | | | PATHOLOGY | [address] | | | + + + + + GENETRAILS AML/MDS GENE MUTATION PANEL, BM (PP) (04/19/2016) + + + + + + | Component | Value | Ref Range | Performed | Pathologist | | | | | At | Signature | + + + + + + | [facility] | [facility] AML/MDS | | [facility] | | | AML/MDS | Gene Mutation Panel Bone | | DIAGNOSTIC | | | GENE | MarrowSpecimen Type: | | | | | MUTATION | Bone Marrow | | LABORATORIE | | | PANEL, BM | (EDTA)Supplemental | | S | | | | indications: 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 The | | | | | | NRAS [id number] missense | | | | | | mutation previously | | | | | | reported in the | | | | | | diagnostic | | | | | | andpre-transplant | | | | | | samples (05/27/15 and | | | | | | 08/09/15 bone marrows) is | | | | | | not detectedin the | | | | | | current sample (limit of | | | | | | detection ~0.5%). | | | | | | No new gene | | | | | | mutations/variants are | | | | | | detected. Gene: | | | | | | [id number]: | | | | | | p.S185I (Likely benign | | | | | | germline polymorphism of | | | | | | donor origin)Variant | | | | | | Allele frequency: ~50% | | | | | | (similar to the 11/22/15 | | | | | | bone marrow) | | | | | | Average# of DNA sequence | | | | | | reads (ie, depth of | | | | | | coverage) for each of | | | | | | thefollowing genes: | | | | | | 1772 Each of the | | | | | | genes listed below | | | | | | contained no detectable | | | | | | mutation, | | | | | | unlessotherwise stated | | | | | | above. Gene % | | | | | | ObservedCoverage Gene | | | | | | % ObservedCoverage* Gene | | | | | | % ObservedCoverageABL1 | | | | | | 100% GATA2 100% | | | | | | NPM1 100%ASXL1 | | | | | | 100% HRAS 100% NRAS | | | | | | 100%BCOR 100% IDH1 100% | | | | | | PAX5 100%CBL 100% IDH2 | | | | | | 100% PTPN11 | | | | | | 100%CBLB 85% IKZF1 | | | | | | 100% RUNX1 | | | | | | 100%CEBPA 88% | | | | | | IL7R 100% SF3B1 | | | | | | 100%CREBBP 100% | | | | | | JAK1 100% SRSF2 | | | | | | 100%CSF3R 100% | | | | | | JAK2 100% STAT3 | | | | | | 100%DNMT3A 98% | | | | | | JAK3 90% SUZ12 | | | | | | 93%ETV6 100% KDM6A | | | | | | 95% TET2 (exon3) | | | | | | 100%EZH2 96% KIT | | | | | | 100% TP53 100%FBXW7 | | | | | | 100% KRAS 100% U2AF1 | | | | | | 100%FLT3 100% MPL | | | | | | 100% WT1 87%GATA1 | | | | | | 100% NOTCH1 | | | | | | 93% ZRSR2 | | | | | | 94%*Percent of gene | | | | | | covered by a minimum of | | | | | | 100 sequence reads, as | | | | | | comparedwith expected | | | | | | coverage based on data | | | | | | from 10 normal DNA | | | | | | samples. A list ofgene | | | | | | segments with less than | | | | | | 100 sequence reads in | | | | | | this sample is | | | | | | availableupon request. | | | | | | Assay Information: | | | | | | This test is designed | | | | | | to detect alterations | | | | | | in theabove panel of | | | | | | genes, many of which are | | | | | | known to play a role in | | | | | | leukemiapathogenesis, | | | | | | prognosis or response to | | | | | | therapy. Genomic DNA is | | | | | | extractedand purified | | | | | | from blood or bone | | | | | | marrow. Mutations are | | | | | | screened by | | | | | | massivelyparallel | | | | | | sequencing | | | | | | (next-generation | | | | | | sequencing) using a | | | | | | combination | | | | | | ofmultiplexed PCR | | | | | | (AmpliSeq primers) and | | | | | | emulsion PCR, followed | | | | | | bysemiconductor-based | | | | | | sequencing on an Ion | | | | | | Torrent PGM. The | | | | | | panel targets selected | | | | | | exons (with reported | | | | | | hotspot mutations) of | | | | | | thegenes listed above. | | | | | | The actual sequence | | | | | | coverage varies for each | | | | | | sample andis summarized | | | | | | (by gene) in the table | | | | | | above. The gene segments | | | | | | that are | | | | | | notconsistently | | | | | | well-covered by | | | | | | massively parallel | | | | | | sequencing have | | | | | | beenalternatively | | | | | | sequenced by routine | | | | | | [employer] dideoxy | | | | | | sequencing methods. | | | | | | Alist of the gene | | | | | | segments that are | | | | | | incompletely covered by | | | | | | the combinationof | | | | | | massively parallel and | | | | | | [employer] sequencing are | | | | | | available upon request. | | | | | | For this assay, | | | | | | the minimum detectable | | | | | | mutant allele ratio | | | | | | ranges between5% and | | | | | | 15%, depending on the | | | | | | sequence read depth. The | | | | | | minimum | | | | | | requiredsequencing | | | | | | coverage is 100 reads | | | | | | per gene segment (to | | | | | | yield a 15% alleleburden | | | | | | sensitivity). Gene | | | | | | segments with less than | | | | | | 100 reads could | | | | | | harbormutations that | | | | | | were missed by this | | | | | | analysis. Low read | | | | | | counts may | | | | | | reflectchanges in gene | | | | | | copy number or technical | | | | | | issues with the sample. | | | | | | With regard to | | | | | | insertions and | | | | | | deletions, this test is | | | | | | known to be biasedtoward | | | | | | detecting shorter | | | | | | alterations. Therefore, | | | | | | a supplementary | | | | | | mgc-[id number]-gnqee | | | | | | assay is concomitantly | | | | | | run to ensure that | | | | | | internal | | | | | | tandemduplication | | | | | | insertions in FLT3 exon | | | | | | 14 are not missed. | | | | | | Additional details on | | | | | | mutations identified in | | | | | | this specimen: | | | | | | Gene Transcript | | | | | | cDNA Roberta Genome | | | | | | Chrom Start | | | | | | End Ref Roberta | | | | | | IL7R [id number] | | | | | | c.554G>T hg19 chr5 | | | | | | [id number] G | | | | | | T Case | | | | | | reviewed by:Kerri | | | | | | MD Alex, PhD/Molecular | | | | | | Genetic Pathology | | | | | | FellowKary Ponce, | | | | | | MD/Hematopathologist | | | | | | (Analyte specific | | | | | | reagents are used in | | | | | | many laboratory tests | | | | | | necessary forstandard | | | | | | medical care and | | | | | | generally do not require | | | | | | FDA approval. This | | | | | | testwas developed and | | | | | | its performance | | | | | | characteristics | | | | | | determined by [place] | | | | | | [facility] | | | | | | [facility]; CLIA # | | | | | | [id number]. It has not | | | | | | been cleared orapproved | | | | | | by the U.S. Food and | | | | | | Drug Administration.) | | | | | | This test was | | | | | | developed and its | | | | | | performance | | | | | | characteristics | | | | | | determined bythe [facility] | | | | | | [facility] [...] | | | | | | The [facility] | | | | | | [facility] | | | | | | are fully licensed by | | | | | | the state of [place] | | | | | | under CLIA and | | | | | | areaccredited by [facility] [place] | | | | | | of [place] | | | | | | Pathologists ([place]). | | | | | | Rendering | | | | | | Diagnostician: | | | | | | Kary Ponce | | | | | | MDPathologistElectronica | | | | | | lly Signed 05/03/2016 | | | | | | 12:01PM | | | | + + + + + + + + | Specimen | + + | Bone marrow - Bone | | marrow | + + + + + | Narrative | Performed At | + + + | | | + + + + + + + + | Performing | Address | City/State/Zipcode | Phone Number | | Organization | | | | + + + + + | [facility] | [address] | [place] [address] | | | DIAGNOSTIC | [address] | | | | LABORATORIES | | | | + + + + + CYTOGENETICS BONE MARROW CHROMOSOME ANALYSIS (W/FISH) (PP) (04/19/2016) + + + + + + | Component | Value | Ref Range | Performed | Pathologist | | | | | At | Signature | + + + + + + | CHROMOSOME | Bone Marrow: Full | | [facility] | | | REPORT | StudySupplemental | | DIAGNOSTIC | | | | indications: 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 Thank you | | | | | | very much for your | | | | | | referral. If you have | | | | | | any questions | | | | | | regardingthis report or | | | | | | future cytogenetic | | | | | | testing issues, please | | | | | | feel free tocontact us. | | | | | | CYTOGENETIC | | | | | | ANALYSIS SUMMARY:Number | | | | | | of Cells Analyzed: | | | | | | 20 Banding Level: | | | | | | 450Number of Cells | | | | | | Counted: N/A Banding | | | | | | Method: GTWNumber | | | | | | of Cells Karyotyped: | | | | | | 2 The clinical | | | | | | interpretation was made | | | | | | by the clinical | | | | | | prepared foods team leader. | | | | | | Rendering | | | | | | Diagnostician: Sam | | | | | | Kamari PhD, ABMG, | | | | | | FACMGClinical | | | | | | CytogeneticistElectronic | | | | | | nahid Signed 04/28/2016 | | | | | | 11:24AMRendering | | | | | | Diagnostician: Aspen | | | | | | Joceline PERERA, AB, | | | | | | FACMGClinical | | | | | | GeneticistElectronically | | | | | | Signed 04/28/2016 | | | | | | 1:47PM | | | | + + + + + + + + | Specimen | + + | Bone marrow - Bone | | marrow | + + + + + | Narrative | Performed At | + + + | | | + + + + + + + + | Performing | Address | City/State/Zipcode | Phone Number | | Organization | | | | + + + + + | [facility] | [address] | [place] [address] | | | DIAGNOSTIC | [address] | | | | LABORATORIES | | | | + + + + + ENGRAFTMENT POST TRANSPLANT, BONE MARROW (PP) (04/19/2016) + + + + + + | Component | Value | Ref Range | Performed | Pathologist | | | | | At | Signature | + + + + + + | ENGRAFTMENT | A Post-Transplant | | [facility] | | | POST | Engraftment, Bone | | DIAGNOSTIC | | | TRANSPLANT, | MarrowSpecimen Type: | | | | | BONE | Bone Marrow (EDTA); Date | | LABORATORIE | | | MARROW | of Transplant: | | S | | | | 08/26/15; DonorName/ID: | | | | | | NMDP | | | | | | [id number] | | | | | | indications: 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 | | | | | | This | | | | | | test was developed and | | | | | | its performance | | | | | | characteristics | | | | | | determined bythe [facility] | | | | | | [facility] [...] | | | | | | The [facility] | | | | | | DiagnosticsLaboratories | | | | | | are fully licensed by | | | | | | the state of [place] | | | | | | under CLIA and | | | | | | areaccredited by [employer] | | | | | | of [place] | | | | | | Pathologists (CAP). | | | | | | Rendering | | | | | | Diagnostician: Yung | | | | | | Ramakrishna PERERA, PhDMolecular | | | | | | Genetic | | | | | | PathologistElectronicall | | | | | | y Signed 04/26/2016 | | | | | | 2:52PM | | | | + + + + + + + + | Specimen | + + | Bone marrow - Blood | + + + + + | Narrative | Performed At | + + + | | | + + + + + + + + | Performing | Address | City/State/Zipcode | Phone Number | | Organization | | | | + + + + + | [facility] | [address] | [place] [address] | | | DIAGNOSTIC | [address] | | | | LABORATORIES | | | | + + + + + documented in this encounter Visit Diagnoses + + | Diagnosis | + + | 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 | | remission | + + | 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HCC) Bone marrow replaced by transplant | + + documented in this encounter Administered Medications + +--------+ +--------+------+---------+ | Medication Order | MAR | Action | Dose | Rate | Site | | | Action | Date | | | | + +--------+ +--------+------+---------+ | influenza vaccine (FLUZONE) | Given | 04/19/20 | 0.5 mL | | Left | | (PF) IM injection (age 3 years or | | 16 3:32 | | | Deltoid | | greater) 0.5 mL 0.5 mL, | | PM PDT | | | | | intramuscular, ONCE, 1 dose, Wed | | | | | | | 04/19/16 at 1515 | | | | | | + +--------+ +--------+------+---------+ +---+---+ | | | +---+---+ + +---------+ +------+---+ + | morphine injection 4 mg 4 mg, | New Bag | 04/19/20 | 4 mg | | Left | | intravenous, ONCE, 1 dose, Sun | | 16 3:01 | | | Antecubi | | 04/19/16 at 1500 | | PM PDT | | | drake | + +---------+ +------+---+ + +---+---+ | | | +---+---+ + +-------+ +--------+---+---------+ | pneumococcal (13-dimas) conjugate | Given | 04/19/20 | 0.5 mL | | Right | | vaccine (PREVNAR 13) injection | | 16 3:35 | | | Deltoid | | 0.5 mL 0.5 mL, intramuscular, | | PM PDT | | | | | ONCE, 1 dose, Sun04/19/16 at | | | | | | | 1515 | | | | | | + +-------+ +--------+---+---------+ +---+---+ | | | +---+---+ documented in this encounter"
--- OUTSIDE RECORDS SUMMARY | ~2019-05-17 | XMS | Encounter Summary ---
Demographics + + + | Address | [address] | | | [place] [address] | + + + | Home Phone [...] Team Providers + +------+ + | Care Sand Filler Name | Role | Phone | + +------+ + | Zayda Hinton | PCP | | + +------+ + Encounter Details +--------+ + + + + | Date | Type | Department | Care Team | Description | +--------+ + + + + | 10/06/ | Pharmacy | Specialty Pharmacy | | | | 2015 | Visit | Services [address] | | | | | | [address] | | | | | | [place], [place] | | | | | | [address] | | | | | | [phone] | | | +--------+ + + + [...] [place] | | | | | | [address] | | | | | | [phone] | | | | | | | | +--------+---------+ + + + documented as of this encounter Visit Diagnoses Not on filedocumented in this encounter"
--- OUTSIDE RECORDS SUMMARY | ~2019-05-17 | XMS | Encounter Summary ---
Demographics + + + | Address | [address] | | | [place] [address] | + + + | Home Phone | | + + + | Preferred Language | Unknown | + + + | Marital Status | | + + + | Hinduism Affiliation | SPI | + + + | Race | White | + + + | Ethnic Group | Not or | + + + Author + + + | Author | [facility] | + + + | Organization | [facility] | + + + | Address | Unknown | + + + | Phone | Unavailable | + + + Support + + +---------+ + | Name | Relationship | Address | Phone | + + +---------+ + | Gabriel Kelly | ECON | Unknown | | + + +---------+ + Care Team Providers + +------+ + | Care Sketcher Name | Role | Phone | + +------+ + | Pending Pcp Addition | PCP | Unavailable | + +------+ + Encounter Details +--------+ + + + + | Date | Type | Department | Care Team | Description | +--------+ + + + + | 10/13/ | Telephone | [facility] for | Em Saunders, | | | 2016 | | Hematologic | [facility] [address] | | | | | [facility] | [address] | | | | | [address] | [place], [place] | | | | | Debi Burger Mailcode: | [address] | | | | | [id number] | [phone] | | | | | [place], | | | | | | [place] [address] | | | | | | [phone] | | | +--------+ + + + [...] Rd | | | | | | [place], [place] | | | | | | [address] | | | | | | [phone] | | | | | | | | +--------+---------+ + + + documented as of this encounter Visit Diagnoses Not on filedocumented in this encounter"
--- OUTSIDE RECORDS SUMMARY | ~2019-05-17 | XMS | Encounter Summary ---
Demographics + + + | Address | [address] | | | [place] [address] | + + + | Home Phone [...] + + + | Author | [facility] | + + + | Organization | [facility] | + + + | Address | Unknown | + + + | Phone | Unavailable | + + + Support + + +---------+ + | Name | Relationship | Address | Phone | + + +---------+ + | Gabriel Kelly | ECON | Unknown | | + + +---------+ + Care Team Providers + +------+ + | Care Target Network Analyst Name | Role | Phone | + +------+ + | Pending Pcp Addition | PCP | Unavailable | + +------+ + Reason for Visit + + + | Reason | Comments | + + + | Lab Draw | PIV | + + + | Intravenous infusion | IVF | + + + Office Visit - [...] | | | | | remission | [address] | [facility] | | | | | | Phone: | Pavilion | | | | | Procedures | [phone] | [place], [place] | | | | | Post BMT | Fax: | [address] | | | | | Auth to | [phone] | Phone: | | | | | included | | [phone] | | | | | facility, | | Fax: | | | | | diagnostics, | | [phone] | | | | | office | | | | | | | visits and | | | | | | | surgery | | | +--------+---------+ + + + + Encounter Details +--------+ + + + + | Date | Type | Department | Care Team | Description | +--------+ + + + + | 08/09/ | Clinical | Center for | | Lab Draw (PIV); | | 2016 | Support | Hematologic | | Intravenous infusion | | | Staff | [facility]ign[facility] at [facility] | | (IVF) | | | | [address] | | | | | | [place] Mailcode: | | | | | | [id number] | | | | | | [place], | | | | | | [place] [address] | | | | | | [phone] | | | +--------+ + + + [...] documented as of this encounter Progress Notes Rupa Lantigua RN - 08/09/2016 7:40 AM PST INFUSION/TRANSFUSION NURSING NOTE Name: Khurram Kelly Date: 08/09/2016 Provider: Yari Garcia MD/RONALD Yanes Subjective: Patient reports that he has had persistent nausea for the last week. He states that he is taking Zofran and usually vomits once in the morning. He does not have much of an appetite and is only eating a few snacks throughout the day. He is usually able to eat d inner. He denies fevers, chills, diarrhea and bleeding. When asked about rashes, he states that he has one small suspicious red spot to left upper arm and will let ORLY Yanes know about it when he sees her this am. He reports that he is drinking about 1 liter of flu ids daily and states that he occasionally has some dizziness when standing. 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 He also has no past medical history of Acute, but ill-defined, cerebr ovascular disease (HCC), Anxiety state, Arrhythmia, Asthma, At risk for colon cancer, Blindn ess, Chronic airway obstruction (HCC), Congestive heart failure (HCC), Depressive disorder, Disorder of adrenal gland (HCC), Encounter for extracorporeal dialysis (HCC), GERD (gastroes ophageal reflux disease), Hearing loss, Heart attack (HCC), Hernia, hiatal, High risk for co naga cancer, Hyperlipidemia, Hypertension, Irritable bowel syndrome, Kidney stones, Migraine, Nonpsychotic mental disorder, Other and unspecified symptoms and signs involving general se nsations and perceptions, Panic disorder, Pneumonia, organism unspecified, Pulmonary tubercu losis, Regional enteritis (HCC), Shortness of breath, Sleep apnea, Type 1 diabetes mellitus (HCC), Type 2 diabetes mellitus (HCC), Ulcerative colitis (HCC), Undiagnosed cardiac murmurs , or UTI (urinary tract infection). Pre-Infusion Pain Score: Patient reports a pain level of 7 today. He is taking Oxycodone a nd OxyContin for pain control. For Treatment Done in Clinic Today refer to MAR Narrative: Patient arrived to clinic today, ambulatory- accompanied by his . 22 gauge PIV placed in patient s left antcubitae, using an IV start kit. PIV with excell ent blood return. Labs drawn and sent. PIV flushed with 10 mL NS without any problems. Steri le transparent dressing applied. Patient tolerated procedure well. See Flowsheet for detai ls. Orthostatic VS done- denies dizziness and ORLY Yanes notified of results. 1 L NS IV F infused over two hours per orders. Patient tolerated well. PIV d/c- tip intact, no redne ss to site. Sterile gauze 2 X 2 applied to site with coban. See MAR for details. Chemistries: Last 72 Hours (or 3 results): Recent Labs 08/09/16 0832 NA 133* K 3.7 CL 92* BICARB 28 BUN 9 CR 1.0 GLU 104* CA 9.8 MG 1.8 Lab Results Component Value Date AST 111 08/09/2016 ALT 115 08/09/2016 TBILI 0.4 08/09/2016 AP 156 08/09/2016 TP 6.9 08/09/2016 ALB 3.6 08/09/2016 CBC with diff last 72 hours (or 3 results) Recent Labs 08/09/16 0833 WBC 8.8 HB 14.3 HCT 41.8 PLT 260 MONOPERC 11.3* BASOPERC 0.3 EOSPERC 16.3* ORLY Yanes aware of abnormal lab results. Post Infusion Pain score: 5, able to walk without difficulty Patient instructed to call missile tracking technician/data quality consultant provider for fevers 100.4 F or greater, uncont rolled nausea, vomiting, diarrhea, rash, SOB, chest pain and bleeding- he and his state understanding. Patient discharged from clinic, left ambulatory, accompanied by his . RTC on 08/16/16 fo r labs and follow up with ORLY Yanes. Rupa Lantigua RN documented in this enco unter Plan of Treatment +--------+---------+ + + + | Date | Type | Specialty | Care Team | Description | +--------+---------+ + + + | 05/19/ | Lab | Phlebotomy | | | | 2019 | | | | | +--------+---------+ + + + | 05/19/ | Office | Hematology | Yari Garcia MD | | | 2019 | Visit | Malignancy | [address] [facility] | | | | | | [address] | | | | | | [place], [place] | | | | | | [address] | | | | | | [phone] | | | | | | | | +--------+---------+ + + + documented as of this encounter Procedures + +--------+ + + + | Procedure Name | Priori | Date/Time | Associated Diagnosis | Comments | | | ty | | | | + +--------+ + + + | CBC+DIFF,POC | Routin | 08/09/2016 | S/P allogeneic | Results for this | | | e | 8:33 AM | bone marrow | procedure are in the | | | | PST | transplant (HCC) | results section. 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) | | + +--------+ + + + | LIVER SET | Urgent | 08/09/2016 | S/P allogeneic | Results for this | | (AST,ALT,BILI | | 8:20 AM | bone marrow | procedure are in the | | TOTAL,BILI | | PST | transplant (HCC) | results section. | | DIRECT,ALK | | | Acute myelomonocytic | | | PHOS,ALB,PROT TOTAL) | | | leukemia in | | | | | | remission (HCC) | | + +--------+ + + + | TREATMENT PARAMETERS | Routin | 08/09/2016 | Acute | | | #2 - [facility] | e | 8:15 AM | myelomonocytic | | | | | PST | leukemia in | | | | | | remission (HCC) | | + +--------+ + + + | TREATMENT PARAMETERS | Routin | 08/09/2016 | Acute | | | #2 - [facility] | e | 8:15 AM | myelomonocytic | | | | | PST | leukemia in | | | | | | remission (HCC) | | + +--------+ + + + | TREATMENT PARAMETERS | Routin | 08/09/2016 | Acute | | | #2 - [place] | e | 8:15 AM | myelomonocytic | | | | | PST | leukemia in | | | | | | remission (HCC) | | + +--------+ + + + | TREATMENT PARAMETERS | Routin | 08/09/2016 | Acute | | | #2 - [facility] | e | 8:15 AM | myelomonocytic | | | | | PST | leukemia in | | | | | | remission (HCC) | | + +--------+ + + + | TREATMENT PARAMETERS | Routin | 08/09/2016 | Acute | | | #2 - [facility] | e | 8:15 AM | myelomonocytic | | | | | PST | leukemia in | | | | | | remission (HCC) | | + +--------+ + + + | NURSING | Routin | 08/09/2016 | Acute | | | COMMUNICATION #3 - | e | 8:15 AM | myelomonocytic | | | [facility] | | PST | leukemia in | | | | | | remission (HCC) | | + +--------+ + + + | NURSING | Routin | 08/09/2016 | Acute | | | COMMUNICATION #2 - | e | 8:15 AM | myelomonocytic | | | [facility] | | PST | leukemia in | | | | | | remission (HCC) | | + +--------+ + + + | NURSING | Routin | 08/09/2016 | Acute | | | COMMUNICATION #1 - | e | 8:15 AM | myelomonocytic | | | [place] | | PST | leukemia in | | | | | | remission (HCC) | | + +--------+ + + + | TREATMENT PARAMETERS | Routin | 08/09/2016 | Acute | | | #1 - [facility] | e | 8:15 AM | myelomonocytic | | | | | PST | leukemia in | | | | | | remission (HCC) | | + +--------+ + + + | TREATMENT PARAMETERS | Routin | 08/09/2016 | Acute | | | #1 - [place] | e | 8:15 AM | myelomonocytic | | | | | PST | leukemia in | | | | | | remission (HCC) | | + +--------+ + + + documented in this encounter Results CBC+DIFF,POC (08/09/2016 8:33 AM PST) + + + + + + | Component | Value | Ref Range | Performed | Pathologist | | | | | At | Signature | + + + + + + | WBC POC | 8.8 | 4.4 - 11.0 | [facility] - | | | | | 10*3/uL | [facility] | | | | | | [facility]TER | | | | | | OF CARE | | | | | | TESTS | | + + + + + + | RBC POC | 4.44 (L) | 4.50 - 6.00 | [facility] - | | | | | 10*6/uL | [facility] | | | | | | [facility] | | | | | | OF CARE | | | | | | TESTS | | + + + + + + | HGB POC | 14.3 | 13.5 - 17.5 | [facility] - [...] + + + | MCV POC | 94.1 | 80.0 - 96.0 fL | [facility] - | | | | | | [facility] | | | | | | [facility] | | | | | | OF CARE | | | | | | TESTS | | + + + + + + | MCH POC | 32.2 | 28.5 - 32.3 pg | [facility] - | | | | | | [facility] | | | | | | [facility] | | | | | | OF CARE | | | | | | TESTS | | + + + + + + | MCHC POC | 34.2 | 33.0 - 35.5 | [facility] - | | | | | g/dL | [facility] | | | | | | [facility]UTHIE CARTER | | | | | | OF CARE | | | | | | TESTS | | + + + + + + | RDW SD, POC | 41.7 | 35.1 - 46.3 fL | [facility] - | | | | | | [place] | | | | | | [facility] CARTER | | | | | | OF CARE | | | | | | TESTS | | + + + + + + | PLT POC | 260 | 150 - 400 | [facility] - [...] + + + + | NEUTROPHIL% | 50.1 | 50.0 - 70.0 % | [facility] - | | | POC | | | [facility] | | | | | | [facility]IE CARTER | | | | | | OF CARE | | | | | | TESTS | | + + + + + + | LYMPH% POC | 22.0 | 18 - 42 % | [facility] - | | | | | | [facility] | | | | | | [facility] | | | | | | OF CARE | | | | | | TESTS | | + + + + + + | MONO %, POC | 11.3 (H) | 3.5 - 9.0 % | [facility] - | | | | | | [place] | | | | | | [facility], POINT | | | | | | OF CARE | | | | | | TESTS | | + + + + + + | EOS %, POC | 16.3 (H) | 1.0 - 3.0 % | [...] + + | MONO #, POC | 1.0 (H) | 0.1 - 0.9 | [facility] - | | | | | 10*3/uL | [facility] | | | | | | [facility], POINT | | | | | | OF CARE | | | | | | TESTS | | + + + + + + | EOS #, POC | 1.4 (H) | 0.0 - 0.5 | [facility] - [...] [facility] | [address] | [place], [place] | | | [facility] CAR[facility] OF CARE | [address] | [address] | | | TESTS | | | | + + + + + BMP + MAG, POC CHM (08/09/2016 8:32 AM PST) + +---------+ + + + | Component | Value | Ref Range | Performed | Pathologist | | | | | At | Signature | + +---------+ + + + | SODIUM, POC | 133 (L) | 134 - 143 | [facility] - [...] +---------+ + + + | CHLORIDE, | 92 (L) | 97 - 108 mmol/L | [...] + + + | LDH, POC | 291 (H) | 0 - 206 U/L | [...] + + + | YESSICA [facility] | [address] | [place], [place] | | | [facility] OF [facility] | [facility] | [address] | | | TESTS | | | | + + + + + LIVER SET (AST,ALT,BILI TOTAL,BILI DIRECT,ALK PHOS,ALB,PROT TOTAL) (08/09/2016 8:20 AM PST ) + +---------+ + + [...] + + + | ALK PHOS | 156 (H) | 53 - 128 U/L | [facility] | | | | | | LABORATORY | | | | | | SERVICES, | | | | | | CORE | | + +---------+ + + + | AST(SGOT) | 111 (H) | <=41 U/L | [facility] | | | | | | LABORATORY | | | | | | SERVICES, | | | | | | CORE | | + +---------+ + + + | ALT (SGPT) | 115 (H) | <=60 U/L | [facility] | [...] + + + + + | [facility]ESS[facility] | [address] | [place] [address] | | | INDRA SHARIF | [place] [...] in this encounter Administered Medications + +---------+ + +-------+------+ | Medication Order | MAR | Action | Dose | Rate | Site | | | Action | Date | | | | + +---------+ + +-------+------+ | NaCl 0.9 % solution 1,000 mL, | New Bag | 08/09/19 | 1,000 mL | 500 | | | intravenous, ONCE, 1 dose, Sun | | 17 8:25 | | mL/hr | | | 08/09/16 at 0830 | | AM PST | | | | + +---------+ + +-------+------+ +---+---+ | | | +---+---+ documented in this encounter"
--- OUTSIDE RECORDS SUMMARY | ~2019-05-17 | XMS | Encounter Summary ---
Demographics + + + | Address | [address] | | | [place] [address] | + + + | Home Phone | | + + + | Preferred Language | Unknown | + + + | Marital Status | | + + + | Congregation Affiliation | SPI | + + + | Race | White | + + + | Ethnic Group | Not or | + + + Author + + + | Author | [facility] | + + + | Organization | [facility] | + + + | Address | Unknown | + + + | Phone | Unavailable | + + + Support + + +---------+ + | Name | Relationship | Address | Phone | + + +---------+ + | Gabriel Kelly | ECON | Unknown | | + + +---------+ + Care Team Providers + +------+ + | Care Manager Dental Name | Role | Phone | + +------+ + | Zayda Hinton | PCP | | + +------+ + Encounter Details +--------+ + + + + | Date | Type | Department | Care Team | Description | +--------+ + + + + | 08/02/ | Pharmacy | Specialty Pharmacy | | | | 2016 | Visit | Services [address] | | | | | [address] | | | | | | [place], [place] | | | | | | [address] | | | | | | [phone] | | | +--------+ + + + [...] 2019 | Visit | Malignancy | [address] [facility] | | | | | | [address] | | | | | | [place], [place] | | | | | | [address] | | | | | | [phone] | | | | | | | | +--------+---------+ + + + documented as of this encounter Visit Diagnoses Not on filedocumented in this encounter"
--- OUTSIDE RECORDS SUMMARY | ~2019-05-17 | XMS | Encounter Summary ---
Demographics + + + | Address | [address] | | | [place] [address] | + + + | Home Phone [...] Team Providers + +------+ + | Care Interventional Pain Physician Name | Role | Phone | + +------+ + | Pending Pcp Addition | PCP | Unavailable | + +------+ + Encounter Details +--------+ + + + + | Date | Type | Department | Care Team | Description | +--------+ + + + + | 11/17/ | Telephone | Center for | Yari Garcia MD | | | 2016 | | Hematologic | [address] | | | | | Malignancies at [facility] | [address] | | | | | [address] | [place], [place] | | | | | Debi Burger Mailcode: | [address] | | | | | [facility] | [phone] | | | | | [place], | | | | | | [place] [address] | | | | | | [phone] | | | +--------+ + + + [...] Rd | | | | | | [place], [place] | | | | | | [address] | | | | | | [phone] | | | | | | | | +--------+---------+ + + + documented as of this encounter Visit Diagnoses Not on filedocumented in this encounter"
--- OUTSIDE RECORDS SUMMARY | ~2019-05-17 | XMS | Encounter Summary ---
Demographics + + + | Address | [address] | | | [place] [address] | + + + | Home Phone [...] Team Providers + +------+ + | Care Tread Booker Name | Role | Phone | + [...] | | | | | remission | [address] | [id number] | | | | | Procedures | Phone: | [place] | | | | | CO | [phone] | Pavilion | | | | | AZACITIDINE | Fax: | [place], [place] | | | | | INJECTION, 1 | [phone] | [address] | | | | | MG CO | | Phone: | | | | | CHM,IV | | [phone] | | | | | INFSN,1 HR | | Fax: | | | | | CO CHM,IV | | [phone] | | | | | INFSN,ADDL | | | | | | | HR V[place] | | | +--------+---------+ + + + + Encounter Details +--------+ + + + + | Date | Type | Department | Care Team | Description | +--------+ + + + + | 01/24/ | Clinical | Center for | | Chemotherapy | | 2016 | Support | Hematologic | | | | | Staff | [facility] | | | | | | [address] | | | | | | [place]bi [place] Mailcode: | | | | | | [id number] [place] | | | | | | [place], | | | | | | [place] [address] | | | | | | [phone] | | | +--------+ + + + [...] + + + | Blood Pressure | 116/79 | 01/25/2016 8:24 AM | | | | | PDT | | + + + + + | Pulse | 60 | 01/25/2016 8:24 AM | | | | | PDT | | + + + + + | Temperature | 37.2 C (99 F) | 01/25/2016 8:24 AM | | | | | PDT | | + + + + + | Respiratory Rate | 16 | 01/25/2016 8:24 AM | | | | | PDT | | + + + + + | Oxygen Saturation | 99% | 01/25/2016 8:24 AM | | | | | PDT | | + + + + + | Inhaled Oxygen | - | - | | | Concentration | | | | + + + + + | Weight | 89 kg (196 lb 3.4 | 01/25/2016 8:24 AM | | | | oz) | PDT | | + + + + + | Height | 189 cm (6' 2.41") | 01/25/2016 8:24 AM | | | | | PDT | | + + + + + | Body Mass Index | 24.92 | 01/25/2016 8:24 AM | | | | | PDT | | + + + + + documented in this encounter Progress Mirza Stern RN - 01/25/2016 8:29 AM PDTPt denied pain, fever, chills, bleeding, diar kathy, constipation, mouth sores, or nausea and able to drink at least 2 L oral fluids at [facility] e. Chemotherapy was checked by 2 RNs. Vidaza IV was infused per chemotherapy protocol and com pleted without adverse event. Positive blood return noted pre and post infusion. For infus ion details, see MAR. All three line flushed with Heparin 50 units. Dressing CDI. Stable with ambulation and DC home with family. RTC daily. documented in this e ncounter Plan of [...] Rd | | | | | | [place], [place] | | | | | | [address] | | | | | | [phone] | | | | | | | [...] 70 mg in | New Bag | 01/25/20 | 70 mg | 214 | | | NaCl 0.9 % IV 70 mg (rounded | | 16 9:50 | | mL/hr | | | from 67.84 mg = 32 mg/m2 | | AM PDT | | | | | 2.12 m2 Treatment plan recorded | | | | | | | BSA), intravenous, Administer | | | | | | | over 30 Minutes, ONCE, 1 dose, | | | | | | | 01/25/16 at 0830, HIGH RISK | | | | | | | MEDICATION-CHEMOTHERAPY | | | | | | | Administration must be completed | | | | | | | within 1 hour of preparation., | | | | | | + +---------+ +-------+-------+------+ +---+---+ | | | +---+---+ + +-------+ + +---+---+ | heparin 10 unit/mL IV flush | Given | 01/25/20 | 50 Units | | | | syringe 50 Units 50 Units, | | 16 10:30 | | | | | Intracatheter, NEEDED, | | AM PDT | | | | | Starting 01/25/16 at 0843, | | | | | | | Until 01/25/16 at 1635, line | | | | | | | patency | | | | | | + +-------+ + +---+---+ +-------+ + +---+---+ | Given | 01/25/20 | 50 Units | | | | | 16 9:51 | | | | | | AM PDT | | | | +-------+ + +---+---+ | Given | 01/25/20 | 50 Units | | | | | 16 9:50 | | | | | | AM PDT | | | | +-------+ + +---+---+ +---+---+ | | | +---+---+ + +-------+ +------+---+---+ | ondansetron (ZOFRAN) tablet 8 | Given | 01/25/20 | 8 mg | | | | mg 8 mg, oral, ONCE, 1 dose, Tue | | 16 8:46 | | | | | 01/25/16 at 0830 | | AM PDT | | | | + +-------+ +------+---+---+ +---+---+ | | | +---+---+ documented in this encounter
--- OUTSIDE RECORDS SUMMARY | ~2019-05-17 | XMS | Encounter Summary ---
Demographics + + + | Address | [address] | | | [place] [address] | + + + | Home Phone [...] Team Providers + +------+ + | Care Business Librarian Name | Role | Phone | + +------+ + | Zadya Hinton | PCP | | + +------+ + Encounter Details +--------+ + + + + | Date | Type | Department | Care Team | Description | +--------+ + + + + | 11/19/ | Documentati | [facility] | Sabrina Baez, | | | 2019 | on | [place] [facility] at | [address] | | | | | [address] | [address] | | | | | [address] | [place], [place] | | | | | Mailcode: [facility] | [address] | | | | | [facility] [place] | [phone] | | | | | [address] | | | | | | [phone] | | | +--------+ + + + [...] 2019 | Visit | Malignancy | [address] [facility] | | | | | | [address] | | | | | | [place], [place] | | | | | | [address] | | | | | | [phone] | | | | | | | | +--------+---------+ + + + documented as of this encounter Visit Diagnoses Not on filedocumented in this encounter"
--- OUTSIDE RECORDS SUMMARY | ~2019-05-17 | XMS | Encounter Summary ---
Demographics + + + | Address | [address] | | | [place] [address] | + + + | Home Phone [...] Team Providers + +------+ + | Care Pattern Lease Inspector Name | Role | Phone | [...] + + + | Closed | | Radiology | Diagnoses | Jose, | [facility] | | | | | S/P | Yari Jones MD | [address] | | | | | allogeneic | [address] | [address] | | | | | bone marrow | [address] | Tao | | | | | transplant | [address] | Mailcode: | | | | | ([facility]) | [place], [place] | [address] | | | | | Procedures | [address] | [place] | | | | | MRI HIP LT W | Phone: | Research | | | | | CONT [place] | [phone] | Center | | | | | MRI, JOINT | Fax: | [place], [place] | | | | | OF LEG | [phone] | [address] | | | | | W/CONTRAST | | Phone: | | | | | | | [phone] | | | | | | | Fax: | | | | | | | [phone] | +--------+--------+ + + + + Encounter Details +--------+ + + + + | Date | Type | Department | Care Team | Description | +--------+ + + + + | 07/05/ | Street Commissioner | Center for | Yari Garcia MD | S/P allogeneic bone | | 2016 | | Hematologic | [address] | marrow transplant | | | | Malignancies at | [address] | (HCC) (Primary Dx) | | | | [address] [facility] | [place], [place] | | | | | [address] | [address] | | | | | [address] Mailcode: | [phone] | | | | | [facility] [place] | | | | | | [place], | | | | | | [place] [address] | | | | | | [phone] | | | +--------+ + + + [...] Rd | | | | | | [place], [place] | | | | | | [address] | | | | | | [phone] | | | | | | | | +--------+---------+ + + + documented as of this encounter Visit Diagnoses + + | Diagnosis | + + | 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
--- OUTSIDE RECORDS SUMMARY | ~2019-05-17 | XMS | Encounter Summary ---
Demographics + + + | Address | [address] | | | [place] [address] | + + + | Home Phone [...] Team Providers + +------+ + | Care Brake Repairer Hydraulic Name | Role | Phone | + +------+ + | Pending Pcp Addition | PCP | Unavailable | + +------+ + Encounter Details +--------+ + + + + | Date | Type | Department | Care Team | Description | +--------+ + + + + | 08/17/ | Arabic Linguist | Center for | Yari Garcia MD | | | 2016 | | Hematologic | [address] | | | | | Malignancies at | [address] | | | | | [address] [place] | [place], [place] | | | | | [address] | [address] | | | | | Debi Burger Mailcode: | [phone] | | | | | [facility] | | | | | | [place], | | | | | | [place] [address] | | | | | | [phone] | | | +--------+ + + + [...] 2019 | Visit | Malignancy | [address] [facility] | | | | | | [address] | | | | | | [place], [place] | | | | | | [address] | | | | | | [phone] | | | | | | | | +--------+---------+ + + + documented as of this encounter Visit Diagnoses Not on filedocumented in this encounter"
--- OUTSIDE RECORDS SUMMARY | ~2019-05-17 | XMS | Encounter Summary ---
Demographics + + + | Address | [address] | | | [place] [address] | + + + | Home Phone [...] Team Providers + +------+ + | Care Roustabout Crew Name | Role | Phone | + [...] Description | +--------+--------+ + + + | 12/31/ | Refill | Center for | Aspen Cummins FNP | Refill Request | | 2016 | | Hematologic | [address] | | | | [facility]ignancies at | [address] | | | | | [facility] | [place], [place] | | | | | [address] | [address] | | | | | Debi Burger Mailcode: | [phone] | | | | | [id number] | | | | | | [place], | | | | | | [place] [address] | | | | | | [phone] | | | +--------+--------+ + + + [...] Rd | | | | | | [place] | | | | | | [address] | | | | | | [phone] | | | | | | | | +--------+---------+ + + + documented as of this encounter Visit Diagnoses Not on filedocumented in this encounter"
--- OUTSIDE RECORDS SUMMARY | ~2019-05-17 | XMS | Encounter Summary ---
Demographics + + + | Address | [address] | | | [place] [address] | + + + | Home Phone [...] Team Providers + +------+ + | Care Prototype Model Maker Name | Role | Phone | [...] Description | +--------+--------+ + + + | 08/08/ | Refill | Center for | Aspen Cummins FNP | Refill Request | | 2018 | | Hematologic | [address] [facility] | | | | | Malignancies at | [facility] | | | | | [place] | [place], [place] | | | | | [address] [facility] | [address] | | | | | [facility] Mailcode: | [phone] | | | | | [id number] [place] | | | | | | [facility] [place], | | | | | | [place] [address] | | | | | | [phone] | | | +--------+--------+ + + + [...] 2019 | Visit | Malignancy | [address] [facility] | | | | | | [address] | | | | | | [place] | | | | | | [address] | | | | | | [phone] | | | | | | | | +--------+---------+ + + + documented as of this encounter Visit Diagnoses Not on filedocumented in this encounter"
--- OUTSIDE RECORDS SUMMARY | ~2019-05-17 | XMS | Encounter Summary ---
Demographics + + + | Address | [address] | | | [place] [address] | + + + | Home Phone [...] Team Providers + +------+ + | Care Fast Food Supervisor Name | Role | Phone | [...] | | | myelomonocyt | [address] | | | | | ic leukemia, | [facility] [place] | [facility] | | | | | not having | [address] | [address] | | | | | achieved | [place], [place] | Rd Mailcode: | | | | | remission | [address] | [id number] | | | | | Procedures | Phone: | [place] | | | | | [place] | [phone] | Pavilion | | | | | AZACITIDINE | Fax: | [place], [place] | | | | | INJECTION, 1 | [phone] | [address] | | | | | [place] | | Phone: | | | | | CHM,IV | | [phone] | | | | | INFSN,1 HR | | Fax: | | | | | [place] CHM,IV | | [phone] | | | | | INFSN,ADDL | [...] | | | | | | [facility] [address] | | | | | | [place], | | | | | | [place] [address] | | | | | | [phone] | | | +--------+ + + + [...] off and is returning to hometown of [place]. documented in this encounter Plan of Treatment [...] 2019 | Visit | Malignancy | [address] [facility] | | | | | | [address] | | | | | | [place], [place] | | | | | | [address] | | | | | | [phone] | | | | | | | [...] | | | | | | ([facility])- primary | | | | | [...]
--- OUTSIDE RECORDS SUMMARY | ~2019-05-17 | XMS | Encounter Summary ---
Demographics + + + | Address | [address] | | | [place] [address] | + + + | Home Phone [...] + + | Author | [facility] | + + + | Organization | [facility] | + + + | Address | Unknown | + + + | Phone | Unavailable | + + + Support + + +---------+ + | Name | Relationship | Address | Phone | + + +---------+ + | Gabriel Kelly | ECON | Unknown | | + + +---------+ + Care Team Providers + +------+ + | Care Central Supply Technician Supervisor Name | Role | Phone | + +------+ + | Pending Pcp Addition | PCP | Unavailable | + +------+ + Reason for Visit +--------+ + | Reason | Comments | +--------+ + | Biopsy | | +--------+ + Benefits Check (Routine) +--------+--------+ + + [...] | | | | | | [address] | | | | | | | [address] | | | | | | | [place], | | | | | | | [place] | | | | | | | [address] | | | | | | | Phone: | | | | | | | [phone] | | | | | | | Fax: | | | | | | | [phone] | +--------+--------+ + + + + Encounter Details +--------+---------+ + + + | Date | Type | Department | Care Team | Description | +--------+---------+ + + + | 04/19/ | Office | Center for | Aspen Cummins FNP | 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 Keep your dressing dr muniz for the next 24 hours; no shower or bath until tomorrow. 2. If you notice any signs of infection at the biopsy site (redness, tenderness, drainage ), please call the Triage nurse at [phone]. 3. Because you received sedating medication (morphine), you may not drive for at least 8 hours. documented in this encounter Progress Notes Aspen Cummins FNP - 04/19/2016 8:27 AM PDT04/19/2016 [facility] Procedure Note Procedure: Bone marrow aspirate and biopsy with anxiolysis. Indications: Day +236 s/p unrelated donor PBSC transplant for AML, s/p 6 cycles of post-tr ansplant azacitidine; evaluate disease status. Team Pause: At 1500, prior to the beginning of the procedure the team paused to verify the patient's identity, as well as the procedure to be performed and the correct side/site. Al l equipment required was ready and available. The patient was positioned appropriately. The following team members were present during the team pause: Queenie Carcamo RN; Yoli Yanes MACHINE HOOP MAKER. Description: Written consent for bone marrow aspirate and biopsy was obtained from the pat ient following a brief discussion regarding the risks and benefits of the procedure. He was pre-medicated with Morphine 4 mg IV. He was then placed in the prone position and the skin o marco his left posterior iliac crest was cleansed with betadine and draped in a sterile manner . Lidocaine was used for local anesthesia. A scalpel was used to enlarge the insertion site. A Jamshidi needle was inserted. The first aspirate yielded sufficient spicules per Janette kilpatrick; 1 mL was submitted for morphology studies. A second aspirate was obtained in a hep arinized syringe and submitted for flow cytometry, cytogenetics, and FISH for prior abnl. A third aspirate was obtained in an unheparinized syringe and submitted for [employer]. A fou rth aspirate was obtained in an unheparinized syringe and submitted for VNTR. A total of 16 mL of marrow was aspirated. The needle was repositioned. A core biopsy measuring > 1 cm was obtained and submitted fo r morphology studies Hemostasis was achieved and a pressure dressing was applied. Pt was placed in the supine po sition. He was observed for 15 minutes post-procedure for signs of bleeding and discharged h ome into the care of his . Pt tolerated the procedure well without complications. The results of this procedure will take approximately 7 to 10 days for full analysis. Vivas marco, preliminary results should be available within the next 24 to 48 hours. [facility] AT [address] Mailcode: [id number] [phone] documented in this enc ounter Plan of [...] Rd | | | | | | [place], [place] | | | | | | [address] | | | | | | [phone] | | | | | | | | +--------+---------+ + + + documented as of this encounter Procedures + +--------+ + + + | Procedure Name | Priori | Date/Time | Associated Diagnosis | Comments | | | ty | | | | + +--------+ + + + | NV BONE MARROW ASP | Routin | 04/19/2016 | Acute | | | SAME DAY BIOPSY | e | 3:24 PM | myelomonocytic | | | | | PDT | leukemia in | | | | | | remission (HCC) | | + +--------+ + + + | NV BONE MARROW BX, | Routin | 04/19/2016 | Acute | | | NEEDLE/TROCAR | e | 3:24 PM | myelomonocytic | | | | | PDT | leukemia [...]
--- OUTSIDE RECORDS SUMMARY | ~2019-05-17 | XMS | Encounter Summary ---
Demographics + + + | Address | [address] | | | [place] [address] | + + + | Home Phone [...] Team Providers + +------+ + | Care Machine Castings Plasterer Name | Role | Phone | + [...] | | | | at [facility] 3rd Floor | | ([facility]) | | | | [address] | | | | | | [place], | | | | | | [place] [address] | | | | | | [phone] | | | +--------+------+ + + + [...] 2019 | Visit | Malignancy | [address] [facility] | | | | | | [address] | | | | | | [place], [place] | | | | | | [address] | | | | | | [phone] | | | | | | | [...] | | | PDT | transplant ([facility]) | results section. | + +--------+ + [...] | (NA,K,CL,CO2,BUN,CRE | | PDT | transplant ([facility]) | results section. | | AT,GLUC,CA,AST,ALT,B | [...] | | | PDT | transplant ([facility]) | results section. | + +--------+ + + + | BILIRUBIN DIRECT | Routin | 05/01/2016 | S/P allogeneic | Results for this | | | e | 7:33 AM | bone marrow | procedure are in the | | | | PDT | transplant ([facility]) | results section. | + +--------+ + + + | URIC ACID, PLASMA | Routin | 05/01/2016 | S/P allogeneic | Results for this | | | e | 7:33 AM | bone marrow | procedure are in the | | | | PDT | transplant ([facility]) | results section. | + +--------+ + + + | MAGNESIUM, PLASMA | Routin | 05/01/2016 | S/P allogeneic | Results for this | | | e | 7:33 AM | bone marrow | procedure are in the | | | | PDT | transplant ([facility]) | results section. | + +--------+ + + + | LDH TOTAL, PLASMA | Routin | 05/01/2016 | S/P allogeneic | Results for this | | | e | 7:33 AM | bone marrow | procedure are in the | | | | PDT | transplant ([facility]) | results section. | + +--------+ + [...] + + + + + | [facility] | [address] | [place] [address] | | | SERVICES, CORE | [address] [...] + + + + + | [facility] | [address] | [place] [address] | | | SERVICES, CORE | PARK [...] | + + + + + | [facility] | [address] [facility] | [place] [address] | | | SERVICES, CORE | PARK [...] [facility] | [address] | [place] [address] | | | SERVICES, CORE | PARK [...] + + + + + | [facility] | [address] [facility] | [place] [address] | | | SERVICES, CORE | [address] [...] + + + + + | [facility] | [address] | [place] [address] | | | SERVICES, CORE | PARK [...] | | | LABORATORY | | | POLISH | | | SERVICES, | | | [...] | + + + + + | [facility] | [address] | [place] [address] | | | INDRA SHARIF | [address] | | | + + + + + documented in this encounter Visit Diagnoses + + | Diagnosis | + + | 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
--- OUTSIDE RECORDS SUMMARY | ~2019-05-17 | XMS | Encounter Summary ---
Demographics + + + | Address | [address] | | | [place] [address] | + + + | Home Phone [...] Team Providers + +------+ + | Care Fender Finisher Name | Role | Phone | + +------+ + | Zayda Hinton | PCP | | + +------+ + Reason for Visit Office Visit - E/M Services (Routine) + +--------+ + + + + | Status | Reason | Specialty | Diagnoses / | Referred By | Referred To | | | | | Procedures | Contact | Contact | + +--------+ + + + + | Authorized | | Hematology | Diagnoses | Jose | [...] | | | | | achieved | [place], [place] | [id number] | | | | | remission | [address] | [place] | | | | | | Phone: | [facility]ilion | | | | | Procedures | [phone] | [place], [place] | | | | | [place] | Fax: | [address] | | | | | PATIENT | [phone] | Phone: | | | | | L[address] | | [phone] | | | | | | | Fax: | | | | | | | [phone] | + +--------+ + + + + Encounter Details +--------+ + + + + | Date | Type | Department | Care Team | Description | +--------+ + + + + | 05/15/ | Hospital | Hematology/Medical | A, [address] | | | 2019 | Encounter | Oncology at [facility] | Deshaun Burger [place], | | | | | [address] | [place] [address] | | | | | Mailcode: [facility] | | | | [facility], [address] | | | | | | [place], [place] | | | | | | [address] | | | | | | [phone] | | | +--------+ + + + [...] + + documented as of this encounter Medications at Time of Discharge + + + +---------+ + + | Medication | Sig | Dispensed | Refills | Start | End Date | | | | | | Date | | + + + +---------+ + + | acetaminophen 500 | Take 2 tablets by | | 0 | 12/20/19 | | | mg oral | mouth three times | | | 19 | | | tabletIndications: | daily. Indications: | | | | | | pain | Pain | | | | | + + + +---------+ + + | acyclovir 800 mg | Take 1 tablet by | 60 | 5 | 10/22/19 | | | oral | mouth two times | tablet | | 19 | | | tabletIndications: | daily. | | | | | | Prevention of Herpes | | | | | | | Zoster in | | | | | | | Immunocompromised | | | | | | | Patient | | | | | | + + + +---------+ + + | oxyCODONE | Take 1 tablet by | 30 | 0 | 12/20/19 | | | (immediate release) | mouth every four | tablet | | 19 | | | 5 mg oral tablet | hours as needed for | | | | | | | moderate pain | | | | | | | (unresponsive to | | | | | | | non-opioid | | | | | | | medication). | | | | | + + + +---------+ + + | polyethylene | Mix 1 packet and | | 0 | 12/20/19 | | | glycol 17 gram oral | take orally once | | | 19 | | | powder in | daily. Hold for | | | | | | packetIndications: | loose stool | | | | | | constipation | Indications: | | | | | | | constipation | | | | | + + + +---------+ + + | predniSONE 1 mg | Take 9 mg by mouth | 120 | 3 | 11/19/19 | | | oral | once daily. Combine | tablet | | 19 | | | tabletIndications: | with 5 mg tabs | | | | | | G[facility] | Indications: G[facility] | | | | | + + + +---------+ + + | senna-docusate | Take 2 tablets by | | 0 | 12/20/19 | | | 8.6-50 mg oral | mouth two times | | | 19 | | | tabletIndications: | daily. Hold for | | | | | | constipation | loose stool | | | | | | | Indications: | | | | | | | constipation | | | | | + + + +---------+ + + documented as of this encounter Progress Notes Norma Noel RN - 05/15/2019 2:00 PM PSTFAST TRACK APPOINTMENT Assessment Patient ambulates into infusion today, here after MD visit for urgent add-on bone marrow bi opsy. The patient denies colds, flu, fever, infection, nausea, vomiting, diarrhea, constipation, signs or symptoms of mucositis, edema, skin rash, urinary issues, shortness of breath and s igns or symptoms of bleeding. The patient reports that they are eating well and drinking at least two liters of fluid daily. Labs drawn in starter lab, pt has no central access. 22 gauge PIV placed in patient s r ight forearm, using an IV start kit. PIV with excellent blood return. Labs drawn and sent. PIV flushed with 10 mL NS without any problems. Sterile transparent dressing applied. Patie nt tolerated procedure well. Bone Marrow Biopsy Patient premedicated with 4mg IV Morphine per ESTHELA orders. Bone marrow biopsy completed. PIV dc'd. Patient observed for 15 minutes post-procedure. Bone Marrow biopsy dressing dry and intact. Post bone marrow biopsy instructions reviewed. For details, see [facility] doc flow sheet and Education tab. Patient d/c d ambulatory in stable condition with family. No future appointments schedul ed in Hematology & Oncology. 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 | | | | | | remission (HCC) | | + +------+--------+ + + | GENETRAILS | Lab | Routin | Disease of blood | 05/15/2019 2:32 PM | | COMPREHENSIVE HEME | | e | and blood-forming | PST | | PANEL, BONE MARROW | | | organs, unspecified | | | | | | Pancytopenia (HCC) | | | | | | Acute | | | | | | myelomonocytic | | | | | | leukemia in | | | | | | remission (HCC) | | + +------+--------+ + + | CYTOGENETICS BONE | Lab | Routin | Pancytopenia (HCC) | 05/15/2019 2:32 PM | | MARROW CHROMOSOME | | e | Acute | PST | | ANALYSIS W/ REFLEX | | | myelomonocytic | | | FISH | | | leukemia in | | | | | | remission (HCC) | | + +------+--------+ + + | ENGRAFTMENT | Lab | Routin | Pancytopenia (HCC) | 05/15/2019 2:32 PM | | POST-TRANSPLANT, | | e | Acute | PST | | BONE MARROW | | | myelomonocytic | | | | | | leukemia in | | | | | | remission (HCC) | | + +------+--------+ + + | COMPREHENSIVE HEME | Lab | Routin | Disease of blood | 05/15/2019 2:32 PM | | PANEL SEQ, BONE | | e | and blood-forming | PST | | MARROW | | | organs, unspecified | | | | | | Pancytopenia (HCC) | | | | | | Acute | | | | | | myelomonocytic | | | | | | leukemia in | | | | | | remission (HCC) | | + +------+--------+ + + | FLT3 ITD, BONE | Lab | Routin | Disease of blood | 05/15/2019 2:32 PM | | MARROW | | e | and blood-forming | PST | | | | | organs, unspecified | | | | | | Pancytopenia (HCC) | | | | | | Acute | | | | | | myelomonocytic | | | | | | leukemia in | | | | | | remission (HCC) | | + +------+--------+ + + + +------+--------+ + + | Name | Type | Priori | Associated Diagnoses | Order Schedule | | | | ty | | | + +------+--------+ + + | PARVOVIRUS B19 BY | Lab | Routin | Encounter for | 1 Occurrences | | QUAL PCR | | e | observation for | starting 05/15/2019 | | | | | other suspected | until 05/15/2019 | | | | | diseases and | | | | | | conditions ruled out | | | | | | Pancytopenia | | | | | | (HCC) Acute | | | | | | myelomonocytic | | | | | | leukemia in | | | | | | remission (HCC) | | + +------+--------+ + + | ENGRAFTMENT | Lab | Routin | Pancytopenia (HCC) | 1 Occurrences | | POST-TRANSPLANT, | | e | Acute | starting 05/15/2019 | | BONE MARROW | | | myelomonocytic | until 05/15/2019 | | | | | leukemia in | | | | | | remission (HCC) | | + +------+--------+ + + | COMPREHENSIVE HEME | Lab | Routin | Disease of blood | Once for 1 | | PANEL SEQ, BONE | | e | and blood-forming | Occurrences starting | | MARROW | | | organs, unspecified | 05/15/2019 until | | | | | Pancytopenia (HCC) | 05/15/2019 | | | | | Acute | | | | | | myelomonocytic | | | | | | leukemia in | | | | | | remission (HCC) | | + +------+--------+ + + | FLT3 ITD, BONE | Lab | Routin | Disease of blood | Once for 1 | | MARROW | | e | and blood-forming | Occurrences starting | | | | | organs, unspecified | 05/15/2019 until | | | | | Pancytopenia (HCC) | 05/15/2019 | | | | | Acute | | | | | | myelomonocytic | | | | | | leukemia in | | | | | | remission (HCC) | | + +------+--------+ + + documented as of this encounter Procedures + +--------+ + + + | Procedure Name | Priori | Date/Time | Associated Diagnosis | Comments | | | ty | | | | + +--------+ + + + | LEUKEMIA/LYMPHOMA | Routin | 05/15/2019 | Pancytopenia (HCC) | Results for this | | MARKERS - BONE | e | 3:00 PM | Acute | procedure are in the | | MARROW | | PST | myelomonocytic | results section. | | | | | leukemia in | | | | | | remission (HCC) | | + +--------+ + + + documented in this encounter Results LEUKEMIA/LYMPHOMA MARKERS - BONE MARROW (05/15/2019 3:00 PM PST) + + + + + + | Component | Value | Ref Range | Performed | Pathologist | | | | | At | Signature | + + + + + + | Final | Bone marrow aspirate, | | [facility] | Electronically | | Pathologic | clot section, core | | DEPARTMENT | signed by | | Diagnosis | biopsy and peripheral | | OF | Nicanor W | | | blood: - Acute | | PATHOLOGY | MD Amari,PhD | | | myelomonocytic leukemia | | | on 05/17/2019 at | | | with 85% blasts in a | | | 2:04 PM | | | hypercellular (>95%) | | | | | | marrow, see comment - | | | | | | Pancytopenia with 8% | | | | | | circulating | | | | | | blastsComment: The blast | | | | | | immunophenotype is: | | | | | | variable CD11b, CD13, | | | | | | variable CD15, CD33, | | | | | | CD34, variable CD38, | | | | | | partial CD56, variable | | | | | | CD64, variable CD117, | | | | | | subset HLA-DR, subset | | | | | | MPO positive.The blast | | | | | | immunophenotype | | | | | | demonstrates significant | | | | | | overlap with the prior | | | | | | AMML, and the current | | | | | | case likely represents | | | | | | relapse, but correlation | | | | | | with concurrent | | | | | | cytogenetic/FISH and | | | | | | molecular studies is | | | | | | recommended to confirm | | | | | | this impression. | | | | | | Preliminary results of | | | | | | AML called to [facility] | | | | | | MD Jose at 8:50 AM on | | | | | | 05/16/2019.Case seen | | | | | | by:Carl Graff MD - | | | | | | Hematopathology | | | | | | FellowPhilipp Rusty Fitzpatrick, | | | | | | MD, PhD | | | | | | | | | | | | | | | | | | HematopathologistDepartm | | | | | | ent of Pathology, [place] | | | | | | [facility] | | | | | | UniversityMy electronic | | | | | | signature indicates that | | | | | | I have personally | | | | | | reviewed all diagnostic | | | | | | slides, the gross and/or | | | | | | microscopic portion of | | | | | | this report and | | | | | | formulated the final | | | | | | diagnosis.CLINICAL | | | | | | HISTORY: History of AMML | | | | | | (05/2015) with | | | | | | immunophenotype: CD13, | | | | | | CD33, CD34, CD38, CD56, | | | | | | CD117, HLA-DR | | | | | | (neg-partial), cMPO | | | | | | (variable), CD11b | | | | | | (variable), and CD11c | | | | | | (variable). Additionally | | | | | | approximately 60% of | | | | | | cells are monocytes with | | | | | | the following | | | | | | immunophenotype: CD13, | | | | | | CD33, CD38, CD56, CD15 | | | | | | (variable), CD14 | | | | | | (variable), HLA-DR | | | | | | (variable), CD11b | | | | | | bright, CD11c | | | | | | (variable), CD64 dim, | | | | | | and cMPO. 16% of cells | | | | | | present in the monocytic | | | | | | gate are positive for | | | | | | CD14 with aberrant | | | | | | expression of CD56. | | | | | | Cytogenetics/FISH was | | | | | | normal. 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 CBC: 05/15/2019 | | | | | | 11:53 a.m. Ref Range & | | | | | | Units 11:53 (05/15/19) | | | | | | WHITE CELL COUNT 3.50 - | | | | | | 10.80 K/cu mm 2.50Low | | | | | | RED CELL COUNT 4.50 - | | | | | | 6.00 M/cu mm 4.22Low | | | | | | HEMOGLOBIN 13.5 - 17.5 | | | | | | g/dL 12.5Low | | | | | | HEMATOCRIT 41.0 - 53.0 % | | | | | | 38.5Low MCV 80.0 - | | | | | | 100.0 fL 91.2 MCHC 32.0 | | | | | | - 36.0 g/dL 32.5 RDW | | | | | | SD 35.1 - 46.3 fL | | | | | | 47.8High PLATELET | | | | | | COUNT 150 - 400 K/cu mm | | | | | | 51Low MPV 9.7 - 12.3 | | | | | | fL 9.4Low NRBC% 0.0 - | | | | | | 0.3 % 0.0 NRBC# 0.00 - | | | | | | 0.02 K/cu mm 0.00 | | | | | | NEUTROPHIL % 50.0 - 70.0 | | | | | | % 26.8Low LYMPHOCYTE | | | | | | % 18.0 - 42.0 % 56.4High | | | | | | MONOCYTE % 3.5 - 9.0 | | | | | | % 14.8High EOS % 1.0 - | | | | | | 3.0 % 0.8Low BASO % | | | | | | 0.0 - 2.0 % 0.4 IG% 0.0 | | | | | | - 1.0 % 0.8 NEUTROPHIL | | | | | | # 1.80 - 7.70 K/cu mm | | | | | | 0.67Low NEUTROPHIL # | | | | | | Prelim 1.80 - 7.70 K/cu | | | | | | mm 0.67Low LYMPHOCYTE | | | | | | # 1.00 - 4.80 K/cu mm | | | | | | 1.41 MONOCYTE # 0.10 - | | | | | | 0.90 K/cu mm 0.37 EOS # | | | | | | 0.00 - 0.50 K/cu mm | | | | | | 0.02 BASO # 0.00 - 0.10 | | | | | | K/cu mm 0.01 IG# 0.00 | | | | | | - 0.10 K/cu mm 0.02 MCH | | | | | | POC Resulting Agency | | | | | | [facility] PERIPHERAL | | | | | | BLOOD MORPHOLOGY:WBC: 8% | | | | | | blasts/blast | | | | | | equivalents (including | | | | | | monoblasts) on manual | | | | | | hematopathology review | | | | | | that are intermediate to | | | | | | large in size with | | | | | | round/oval nuclei, | | | | | | variable nuclear folds, | | | | | | fine chromatin, | | | | | | prominent nucleoli, and | | | | | | pale blue cytoplasm with | | | | | | variable granules. Kiara | | | | | | rods are not | | | | | | identified. Neutrophils | | | | | | predominantly show | | | | | | normal nuclear lobation | | | | | | and cytoplasmic | | | | | | granularity. Few | | | | | | unremarkable immature | | | | | | granulocytes. The | | | | | | lymphocytes are | | | | | | morphologically | | | | | | heterogeneous and | | | | | | include large granular | | | | | | forms. RBC: | | | | | | Unremarkable. Rare | | | | | | circulating erythroid | | | | | | precursors. Platelets: | | | | | | Unremarkable. Normal | | | | | | granularity. BONE | | | | | | MARROW ASPIRATE | | | | | | SMEARS:Quality: Adequate | | | | | | particles; good | | | | | | quality. Blasts: Not | | | | | | increased. Myeloids: | | | | | | Markedly decreased. No | | | | | | overt dysplasia. | | | | | | Erythroids: Decreased, | | | | | | complete maturation. No | | | | | | overt dysplasia. | | | | | | Megakaryocytes: | | | | | | Decreased, complete | | | | | | maturation. No overt | | | | | | dysplasia. Lymphocytes: | | | | | | Not increased. No | | | | | | aggregates identified. | | | | | | Plasma cells: Not | | | | | | increased. BONE MARROW | | | | | | DIFFERENTIAL: | | | | | | Preparation: Aspirate | | | | | | smears. Myeloids: 2.5% | | | | | | Erythroids: 6.5% Blasts: | | | | | | 85% Lymphocytes: 4.5% | | | | | | Plasma cells: 0.5% M:E | | | | | | Ratio: n/a Total cells | | | | | | counted: 400 BONE MARROW | | | | | | BIOPSY/CLOT | | | | | | SECTION:Quality: | | | | | | Adequate. Clot section | | | | | | contains particles. | | | | | | Cellularity: >95% | | | | | | Myeloids: Markedly | | | | | | decreased. Erythroids: | | | | | | Markedly decreased | | | | | | Megakaryocytes: Markedly | | | | | | decreased Infiltrate: | | | | | | Sheets of mononuclear | | | | | | immature-appearing cells | | | | | | FLOW CYTOMETRIC | | | | | | ANALYSIS: % of | | | | | | total WBC (CD45+)Blasts | | | | | | 42 Monocytes 3 | | | | | | Lymphocytes 34 | | | | | | % of | | | | | | LymphocytesB-cells 8 | | | | | | T-cells 73 NK-cells 19 | | | | | | RatioKappa/Lambda | | | | | | polyclonal CD4/CD8 1.3:1 | | | | | | Blast immunophenotype: | | | | | | variable CD11b, CD13, | | | | | | variable CD15, CD33, | | | | | | CD34, variable CD38, | | | | | | partial CD56, variable | | | | | | CD64, variable CD117, | | | | | | subset HLA-DR, subset | | | | | | MPO positive. Antibodies | | | | | | Tested CD1a CD2 sCD3 | | | | | | cCD3 CD4 CD5 CD7 CD8 | | | | | | CD10 CD11b CD13 CD14 | | | | | | CD15 CD16 CD19 CD20 CD22 | | | | | | CD23 CD25 CD33 CD34 | | | | | | CD38 CD9 CD45 CD56 CD64 | | | | | | cCD79a CD103 CD117 CD123 | | | | | | BP025v HLA-DR sKappa | | | | | | sLambda cTDT cMPO | | | | | | CYTOGENETIC AND FISH | | | | | | STUDIES: Performed, see | | | | | | separate report. | | | | | | MOLECULAR STUDIES: | | | | | | Performed, see separate | | | | | | report. | | | | + + + + + + | Gross | Both the clot and core | | [facility] | | | Description | biopsy were fixed in | | DEPARTMENT | | | | formalin. The core | | OF | | | | biopsy was decalcified. | | PATHOLOGY | | | | A Umanzor-stained | | | | | | peripheral blood smear | | | | | | was prepared. B: Bone | | | | | | Marrow Clot -1.1 x 0.7 x | | | | | | 0.2 cmC. Bone Marrow | | | | | | Biopsy -1.4 L x 0.2 D | | | | | | cm(RLW) | | | | + + + + + + | Ancillary | Analyte specific | | [facility] | | | Information | reagents are used in | | LABORATORY | | | | many laboratory tests | | SERVICES, | | | | necessary for standard | | [facility] | | | | medical care. This test | | HEALTH + | | | | was developed and its | | HEALING | | | | performance | | | | | | characteristics | | | | | | determined by [facility] | | | | | | laboratories. It has not | | | | | | been cleared or | | | | | | approved by the US Food | | | | | | and Drug Administration | | | | | | (FDA). FDA does not | | | | | | require this test to go | | | | | | through premarket FDA | | | | | | review. This test is | | | | | | used for clinical | | | | | | purposes. It should not | | | | | | be regarded as | | | | | | investigational or for | | | | | | research. This | | | | | | laboratory is certified | | | | | | under the Clinical | | | | | | Laboratory Improvement | | | | | | Amendments (CLIA) as | | | | | | qualified to perform | | | | | | high complexity clinical | | | | | | laboratory testing. If | | | | | | immunohistochemical | | | | | | analysis (IHC) was | | | | | | performed concurrently | | | | | | with flow cytometry, the | | | | | | IHC was done to allow | | | | | | assessment of | | | | | | immunoarchitecture, | | | | | | which is not supplied by | | | | | | flow cytometry. Flow | | | | | | cytometry enables better | | | | | | assessment of clonality | | | | | | and antigen aberrancy | | | | | | than IHC. Appropriate | | | | | | positive controls and/or | | | | | | negative controls were | | | | | | used for all stains, | | | | | | including | | | | | | immunohistochemical | | | | | | stains, special stains, | | | | | | and in situ | | | | | | hybridization, and these | | | | | | reacted appropriately. | | | | + + + + + + + + | Specimen | + + | Bone marrow - Blood | | (substance) | + + | Bone marrow | | structure (body | | structure) | + + | Bone marrow | | structure (body | | structure) | + + | Blood (substance) | + + + + + + + | Performing | Address | City/State/Zipcode | Phone Number | | Organization | | | | + + + + + | [facility] | [address] | [place] [address] | | | PATHOLOGY | [address] | | | + + + + + | [facility] | [address] | [place] [address] | | | SERVICES, [facility] | | | | | HEALTH + HEALING | | | | + + + + + documented in this encounter Visit Diagnoses + + | Diagnosis | + + | Encounter for observation for other suspected diseases and conditions ruled out | + + | Pancytopenia (HCC) Other pancytopenia | + + | 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
--- OUTSIDE RECORDS SUMMARY | ~2019-05-17 | XMS | Encounter Summary ---
Demographics + + + | Address | [address] | | | [place] [address] | + + + | Home Phone | | + + + | Preferred Language | Unknown | + + + | Marital Status | | + + + | Anglican Affiliation | SPI | + + + [...] Team Providers + +------+ + | Care Culinary Instructor Name | Role | Phone | + +------+ + | Zayda Hinton | PCP | | + +------+ + Encounter Details +--------+ + + + + | Date | Type | Department | Care Team | Description | +--------+ + + + + | 09/20/ | Pharmacy | Specialty Pharmacy | | | | 2015 | Visit | Services [address] | | | | | | [address] | | | | | | [place], [place] | | | | | | [address] | | | | | | [phone] | | | +--------+ + + + [...] [address] | | | | | | [place], [place] | | | | | | [address] | | | | | | [phone] | | | | | | | | +--------+---------+ + + + documented as of this encounter Visit Diagnoses Not on filedocumented in this encounter"
--- OUTSIDE RECORDS SUMMARY | ~2019-05-17 | XMS | Encounter Summary ---
Demographics + + + | Address | [address] | | | [place] [address] | + + + | Home Phone | | + + + | Preferred Language | Unknown | + + + | Marital Status | | + + + | Bahai Affiliation | SPI | + + + | Race | White | + + + | Ethnic Group | Not or | + + + Author + + + | Author | [facility] | + + + | Organization | [facility] | + + + | Address | Unknown | + + + | Phone | Unavailable | + + + Support + + +---------+ + | Name | Relationship | Address | Phone | + + +---------+ + | Gabriel Kelly | ECON | Unknown | | + + +---------+ + Care Team Providers + +------+ + | Care Motor Equipment Lieutenant Name | Role | Phone | [...] | | | | | | [place], | | | | | | | [place] | | | | | | | [address] | | | | | | | Phone: | | | | | | | [phone] | | | | | | | Fax: | | | | | | | [phone] | +--------+--------+ + + + + Encounter Details +--------+---------+ + + + | Date | Type | Department | Care Team | Description | +--------+---------+ + + + | 05/29/ | Office | Center for | Aspen Cummins FNP | S/P allogeneic bone | | 2016 | Visit | Hematologic | [address] | marrow transplant | | | | Malignancies at | [address] | (HCC) (Primary Dx) | | | | [place] | [place], [place] | | | | | [address] | [address] | | | | | Debi Burger Mailcode: | [phone] | | | | | [id number] [place] | | | | | | [place], | | | | | | [place] [address] | | | | | | [phone] | | | +--------+---------+ + + + [...] + + + | Blood Pressure | 132/82 | 05/29/2016 3:45 PM | | | | | PST | | + + + + + | Pulse | 99 | 05/29/2016 3:45 PM | | | | | PST | | + + + + + | Temperature | 36.8 C (98.2 F) | 05/29/2016 3:45 PM | | | | | PST | | + + + + + | Respiratory Rate | 16 | 05/29/2016 3:45 PM | | | | | PST | | + + + + + | Oxygen Saturation | 99% | 05/29/2016 3:45 PM | | | | | PST | | + + + + + | Inhaled Oxygen | - | - | | | Concentration | | | | + + + + + | Weight | - | - | | + + + + + | Height | - | - | | + + + + + | Body Mass Index | - | - | | + + + + + documented in this encounter Patient Instructions Patient Instructions Aspen Cummins FNP - 05/29/2016 3:45 PM PST1. Decrease prednisone to 5 mg by mouth every other day alternating with 2.5 mg by mouth once daily 2. Begin paxil (paroxetine) 10 mg by mouth once daily for two weeks, then increase to 20 m g by mouth once daily. Give this a try through [facility] and if you feel it's not helping, you can stop 3. Please try to arrange a therapist through [facility] for your anxiety 4. Continue to eat well, drink at least 2 liters of fluid every day 5. 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 He was evaluated at [place] ED on 06/[address] angiogram negative [...] acute myelomonocytic leukemia. He was referred to [facility] for further evaluation and man agement of his newly dx'd AML. Pt was admitted to [facility] on 05/26/15. Peripheral blood was sent for [...] CD34, variable CD56, variable CD117, and dim [id number] mickey; promonocyte immunophenotype (70% by flow): CD11b, [...] durin g taper. He is currently day +275 s/p transplant, s/p 6 cycles of azacitidine and returns to clinic today for scheduled follow-up. Interim History: Khurram was most recently evaluated in [facility] by me on 05/22/16. He is feeling well overall but notes increased anxiety over the last few weeks. States he and his have been traveling a little bit, concerned abo ut expenses. He had increased his xanax dosing, admits to taking up to 4 mg po daily. He ra n out of his medication on 05/22, was unable to refill until 05/27. Experienced sweats, naus ea, fatigue. Those symptoms have resolved since restarting xanax. States he's back to taking just 0.5 mg po TID as prescribed. His confirms dosing. Pt states his anxiety is unde r much better control. Appetite is good, eating and drinking well. No further c/o N/V after restarting his xanax. Remains active at home. Planning to travel to [facility] for Thanksgiving. Rash resolv ed, no c/o oral or ocular irritation. Review of Systems Constitutional: Negative for chills, [...] three times daily as needed. Indic ations: ANXIETY amLODIPine 5 mg oral tablet Take one-half tablet by mouth once daily. budesonide 3 mg oral capsule,delayed,extend.release Take 1 capsule by mouth two times d aily. hydrocortisone 1 % topical cream Apply topically to affected area two times daily. Appl y a thin film to clean, dry skin and rub in gently. OLANZapine (ZYPREXA) 10 mg oral tablet Take 1 tablet by mouth once daily at bedtime. omeprazole 20 mg oral capsule,delayed release(DR/EC) Take 1 capsule by mouth before babak akfast. PARoxetine 10 mg oral tablet 10 mg by mouth once daily for 2 weeks, then increase to 20 mg by mouth once daily predniSONE 5 mg oral tablet Take 5 mg (one tablet) by mouth every other day alternating with 2.5 mg (one-half tablet) every other day tacrolimus 0.5 mg oral capsule Take 0.5 mg (one capsule) by mouth twice daily trimethoprim-sulfamethoxazole 160-800 mg oral tablet Take 1 tablet by mouth twice daily (every Sunday and ). No current facility-administered medications for this visit. Allergies Allergen Reactions Chlorhexidine [place] Rash PAVAN cloths - ok to use Chloraprep for dresssing change per pt. Filed Vitals: 05/29/2016 3:45 PM BP: 132/82 Pulse: 99 Temp: 36.8 C (98.2 F) TempSrc: Oral Resp: 16 SpO2: 99% PainSc: 0 - Zero Physical Exam Constitutional: He [...] reviewed. Lab Results Component Value Date WBC 7.4 05/29/2016 HB 14.1 05/29/2016 HCT 41.7 05/29/2016 PLT 188 05/29/2016 MCV 98.8 05/29/2016 RDW 44.9 05/01/2016 Lab Results Component Value Date BICARB 26 05/29/2016 TBILI 0.2 (L) 05/29/2016 CA 9.3 05/29/2016 CL 105 05/29/2016 CR 1.2 05/29/2016 GLU 109 (H) 05/29/2016 AP 88 05/29/2016 TP 6.8 05/29/2016 BUN 9 05/29/2016 ALB 4.0 05/29/2016 AST 33 05/29/2016 NA 139 05/29/2016 K 4.1 05/29/2016 ALT 58 05/29/2016 Assessment/Plan: 1. 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 Peripheral blood counts WNL with no evidence of disease by peripheral sm ear. His most recent marrow studies completed 04/19/16 showed a patchy hypocellular (less th an 5% to 50%) bone marrow with trilineage hematopoiesis and < 3% myeloid blasts. Karyotype 4 6,XY[20]. VNTR showed no detectable host cells. 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 --> decrease CBC to q2 weeks --> anticipate repeat marrow studies in conjunction with his one year anniversary, sooner p rn 2. Zoctn-fx-Gzst Disease: Skin bx due to mild rash [...] he was seen in the ED in [place] in late 01/21. Prednisone was increased back to 20 mg po daily. Skin bx 02/10/16 showed vaculolar inter face mixed dermatitis with eosinophils. DDx included GvHD and drug hypersensitivity reaction . Rash resolved with increased dose prednisone. He had tolerated a taper of steroids to 5 mg po every other day then developed a faint recurrent rash. Prednisone increased to 5 mg po d aily on 05/15/16 with rapid resolution of his rash. Continues low dose tacrolimus, budesonide . He has no s/s active GvHD at this time. --> decrease prednisone to 5 mg po every other day alt with 2.5 mg po every other day --> continue tacrolimus 0.5 mg bid without additional taper --> d/c budesonide next visit if pt remains asymptomatic 3. Infectious Disease: Afebrile without localizing s/s infection. He continues prophylactic acyclovir and bactrim. Hx post-transplant CMV reactivation, received a treatment course of valganciclovir. CMV PCRs remained undetected and surveillance d/c'd. Immune reconstitution panel collected 11/22/15 showed normal total T cells with increased CD8+ T cell subsets, norm al total NK cells, decreased B cells with decreased margarita B cells and minimal immune activa tion with CD4 count 385. Post transplant vaccines held due to azacitidine maintenance therap y; began vaccines after therapy completed. PCV13 #1 and inactivated influenza vaccine dosed 04/19/16. --> continue acyclovir and bactrim as prescribed --> PCV13 #2 due ~06/19/16 --> repeat inactivated influenza vaccine ~06/19/16 --> repeat immune reconstitution panel pending today 4. Fluid, Electrolyte and Nutrition: Appetite has returned to pre-morbid baseline. Feels h e's eating well without c/o N/V. Adequate po fluid intake. His electrolytes are reviewed and are within acceptable limits. --> continue a well balanced diet --> maintain hydration 5. Cardiovascular: Pretransplant TTE completed 08/10/15 showed a LVEF of 55-60%. 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 --> continue current meds --> anticipate HTN will improve with tacrolimus taper 6. Psychosocial: Hx of anxiety, previously well controlled with xanax TID. Noted increase i n anxiety or decreased effectiveness of xanax. Changed to clonazepam 0.5 mg po BID with kath kthrough prn however felt xanax worked better for him overall. Changed back to xanax with im provement. Initially professed interest in a peer support group or support at [facility], t lashon felt this was no longer necessary. Over the last few weeks he has noted an increase in h is anxiety, increased xanax to ~4 mg po daily, then ran out of medication and suffered withd marisela symptoms. Feels his anxiety is well controlled again but is again amenable to [facility]. Also amenable to antidepressant therapy. --> reinforced pt should take xanax only as prescribed --> re-refer to [facility] --> ongoing support from Kezia Stokes LCSW --> paroxetine 10 mg po daily x 14 days, then 20 mg po daily; pt is willing to try this med ication for a month 7. Follow up --> RTC to f/u with me on , 06/15/16, sooner prn ORLY Yanes [facility] AT [address] Mailcode: [id number] [place] [phone] documented in this enc ounter Plan of [...] Rd | | | | | | [place], [place] | | | | | | [address] | | | | | | [phone] | | | | | | | | +--------+---------+ + + + documented as of this encounter Procedures + +--------+ + + + | Procedure Name | Priori | Date/Time | Associated Diagnosis | Comments | | | ty | | | | + +--------+ + + + | IMMUNOLOGY CASE | Routin | 05/29/2016 | | Results for this | | | e | | | procedure are in the | | | | | | results section. | + +--------+ + + + documented in this encounter Results IMMUNOLOGY CASE (05/29/2016) + + + + + + | Component | Value | Ref Range | Performed | Pathologist | | | | | At | Signature | + + + + + + | IMMUNOLOGY | SOURCE OF SPECIMEN:A | | [facility] | | | CASE | Lymphocyte Activation | | DEPARTMENT | | | | Panel Final | | OF | | | | Pathologic | | PATHOLOGY | | | | Diagnosis:Peripheral | | | | | | blood, flow | | | | | | immunophenotyping: | | | | | | - Normal total number | | | | | | of T-cells. - | | | | | | Normal total number | | | | | | NK-cells. - | | | | | | Decreased total number | | | | | | of B-cells. - | | | | | | Minimal immune | | | | | | activation (2 of 6 | | | | | | activation indicators | | | | | | abnormal). | | | | | | Comment: Two out of | | | | | | six activation | | | | | | indicators are abnormal | | | | | | consistent withminimal | | | | | | immune activation. | | | | | | Immune activation | | | | | | indicates there is a | | | | | | responseto a stimulus, | | | | | | but does not define the | | | | | | stimulus. Clinical | | | | | | correlation issuggested. | | | | | | Case Seen | | | | | | By:Ambrose Meade, | | | | | | M.D./Hematopathology | | | | | | FellowMiccory Morgan, | | | | | | M.D./Hematopathologist | | | | | | Clinical | | | | | | History: 25 year old | | | | | | man with acute | | | | | | myelomonocytic | | | | | | leukemiadiagnosed in | | | | | | 2014, status | | | | | | post-transplant | | | | | | (08/27/2015). The | | | | | | clinicianrequests an | | | | | | evaluation of peripheral | | | | | | blood lymphocytes for | | | | | | evidence | | | | | | ofreconstitution and | | | | | | immune activation. | | | | | | Laboratory | | | | | | Data:05/29/2016 03:26PM | | | | | | Ref | | | | | | Range & Units Value | | | | | | WBC POC 4.4 - | | | | | | 11.0 10*3/uL 7.4RBC | | | | | | POC 4.50 - 6.00 | | | | | | 10*6/uL 4.22 (L)HGB POC | | | | | | 13.5 - 17.5 g/dL | | | | | | 14.1HCT POC 41.0 - | | | | | | 53.0 % 41.7MCV POC | | | | | | 80.0 - 96.0 fL 98.8 | | | | | | (H)MCH POC 28.5 - | | | | | | 32.3 pg 33.4 (H)MCHC POC | | | | | | 33.0 - 35.5 g/dL | | | | | | 33.8RDW SD, POC | | | | | | 35.1 - 46.3 fL 46.2PLT | | | | | | POC 150 - 400 | | | | | | 10*3/uL 188MPV POC | | | | | | 9.7 - 12.3 fL 7.7 | | | | | | (L)NEUTROPHIL% POC | | | | | | 50.0 - 70.0 % 72.5 | | | | | | (H)LYMPH% POC 18 - | | | | | | 42 % 17.0 (L)MONO %, | | | | | | POC 3.5 - 9.0 % | | | | | | 8.1EOS %, POC | | | | | | 1.0 - 3.0 % 2.0BASO | | | | | | %, POC 0.0 - 2.0 % | | | | | | 0.4NEUTROPHIL# POC | | | | | | 1.8 - 7.7 10*3/uL | | | | | | 5.3LYMPH# POC | | | | | | 1.0 - 4.8 10*3/uL | | | | | | 1.2MONO #, POC 0.1 | | | | | | - 0.9 10*3/uL 0.6EOS | | | | | | #, POC 0.0 - 0.5 | | | | | | 10*3/uL 0.2BASO #, | | | | | | POC 0.0 - 0.1 | | | | | | 10*3/uL 0.0 | | | | | | Flow Cytometry | | | | | | Results:Immunophenotypin | | | | | | g is performed using | | | | | | gating antibody: CD45. | | | | | | Lymphocytesubpopulatio | | | | | | ns are enumerated with | | | | | | antibodies for: CD3, | | | | | | CD4, CD8, WG3ubzk,CD19, | | | | | | CD25, CD27, CD45, | | | | | | CD45RO, CD56, IgD and | | | | | | HLA-DR. | | | | | | Patient Results | | | | | | | | | | | | Reference | | | | | | RangePopulation | | | | | | | | | | | | %Lymphs Count/ul | | | | | | %Lymphs Count/ul | | | | | | Total T cells (CD3+) | | | | | | 75.4 948 | | | | | | 55-85% | | | | | | 700-5188UU4+ CD4+ | | | | | | 27.7 | | | | | | 348 28-57% | | | | | | 300-8158KZ9+ CD8+ | | | | | | | | | | | | 47.2 594 | | | | | | 10-39% | | | | | | 200-900CD3+CD4-CD8-(Do | | | | | | ub.neg) 0.9 NA | | | | | | | | | | | | <6%CD3+CD4+8+ | | | | | | (Doub.pos) 0.9 | | | | | | NA | | | | | | <2%CD4+CD45RO- | | | | | | (na ve) 2.5 | | | | | | NA | | | | | | 8-50%NKT | | | | | | 6.4 | | | | | | | | | | | | <7%NK cells (CD56+CD3-) | | | | | | 16.7 210 | | | | | | 5-28% | | | | | | 71-499Total B-cells | | | | | | (CD19+) 3.0 | | | | | | 38 6-19% | | | | | | 100-500 | | | | | | | | | | | | % of B cells | | | | | | % of B-cellsIgD+ CD27- | | | | | | Na ve B-cells | | | | | | 42.7 | | | | | | 50-80%IgD+ CD27+ | | | | | | Non-switched memory B | | | | | | 2.7 | | | | | | 5-21%IgD- CD27+ | | | | | | Switched, memory B | | | | | | 9.8 | | | | | | 5-24%Activation | | | | | | Indicators | | | | | | | | | | | | Patient Results | | | | | | Reference | | | | | | RangeCD4:CD8 ratio | | | | | | 0.6 | | | | | | 1.0-3.6 | | | | | | | | | | | | %Lymphs | | | | | | | | | | | | %LymphsCD3+CD4+UM4iuxs | | | | | | + 0.6 | | | | | | | | | | | | <1.5%CD3+HLA-DR+ | | | | | | 2.3 | | | | | | | | | | | | <10%CD4+CD25+ | | | | | | 3.4 | | | | | | | | | | | | <7%IC8lxge+CD69+ | | | | | | 1.1 | | | | | | <1% | | | | | | | | | | | | | | | | | | % of CD4+ T | | | | | | cellsCD4+CD25+ bright (T | | | | | | regs) 5.4 | | | | | | <10% | | | | | | Six activation | | | | | | indicators are evaluated | | | | | | and levels shown in the | | | | | | data tableabove. | | | | | | Abnormal results are | | | | | | in bold. The findings | | | | | | are evaluated | | | | | | accordingto the | | | | | | following criteria: | | | | | | 0 | | | | | | abnormalities = no | | | | | | significant immune | | | | | | activation 1 to 2 | | | | | | abnormalities = minimal | | | | | | immune activation | | | | | | 3 to 4 abnormalities = | | | | | | moderate immune | | | | | | activation >4 | | | | | | abnormalities = severe | | | | | | immune activation | | | | | | (Analyte [...] testing.) | | | | | | My electronic | | | | | | signature indicates that | | | | | | I have personally | | | | | | reviewed alldiagnostic | | | | | | slides, the gross and/or | | | | | | microscopic portion of | | | | | | thisreport and | | | | | | formulated the final | | | | | | diagnosis. | | | | | | Rendering Diagnostician: | | | | | | Margarito Morgan | | | | | | AugustHematopathologistEle | | | | | | ctronically Signed | | | | | | 05/30/2016 12:43PM | | | | + + + + + + + + | Specimen | + + | | + + + + + + + | Performing | Address | City/State/Zipcode | Phone Number | | Organization | | | | + + + + + | [facility] | [address] | [place] [address] | | | PATHOLOGY | [address] | | | + + + + + documented in this encounter Visit Diagnoses + + | Diagnosis | + + | 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
--- OUTSIDE RECORDS SUMMARY | ~2019-05-17 | XMS | Encounter Summary ---
Demographics + + + | Address | [address] | | | [place] [address] | + + + | Home Phone [...] Team Providers + +------+ + | Care Freelance Programmer/App Developer Name | Role | Phone | [...] | Mailcode: | | | | | ([facility]) | [place], [place] | [address] | | | | | Dizziness | [address] | Physician's | | | | | Procedures | Phone: | Asha | | | | | CONSULT TO | [phone] | [place], [place] | | | | | ENT / | Fax: | [phone] | | | | | [place]O | [phone] | Phone: | | | | | GY | | [phone] | | | | | | | Fax: | | | | | | | [phone] | + +--------+ + + + + [...] | | | | | achieved | [place], [place] | [address] | | | | | remission | [address] | [facility] | | | | | | Phone: | [facility] | | | | | Procedures | [phone] | [place], [place] | | | | | RI EST | Fax: | [address] | | | | | PATIENT | [phone] | Phone: | | | | | LEVEL V | | [phone] | | | | | | | Fax: | | | | | | | [phone] | + +--------+ + + + + Encounter Details +--------+---------+ + + + | Date | Type | Department | Care Team | Description | +--------+---------+ + + + | 04/15/ | Office | Center for | Aspen Cummins FNP | 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 | Visit | Hematologic | [address] | stem cell transplant | | | | Malignancies at | [facility] | (HCC) (Primary Dx); | | | | [facility] | [place], [place] | Personal history of | | | | [address] | [address] | diseases of the | | | | [facility] Mailcode: | [phone] | blood and | | | | [address] | | blood-forming organs | | | | [facility] [place], | | and certain | | | | [place] [address] | | disorders involving | | | | [phone] | | the immune mechanism | | [...] up with either Yari Garcia MD or mo on 11/18/18Electroni florin signed by ORLY Yanes at 10/21/2018 12:47 PM PDT documented in this encounter Progress Notes Aspen Cummins FNP - 10/21/2018 12:50 PM PDT 10/21/2018 [facility] Primary CHM MD: Yari Garcia MD Primary Oncologist: Yari Garcia MD Diagnosis: AMML, primary refractory Transplant Date: 08/27/15 Donor: MMURD (DPB1 permissive antigen mismatch, male, [id number]) Identifying Data: Khurram Kelly is a 28 [...] his L ankle. He was evaluated at [facility] ED on 06/[address] angiogram negative [...] acute myelomonocytic leukemia. He was referred to [facility] for further evaluation and man agement of his newly dx'd AML. Pt was admitted to [facility] on 05/26/15. Peripheral blood was sent [...] CD34, variable CD56, variable CD117, and dim [id number] mickey; promonocyte immunophenotype (70% by flow): CD11b, [...] insura nce issues. 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 [...] related to RSO that he's been taking termite technician so he held dosi ng without improvement [...] providing peripheral blood counts remain stable 2. 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 He initially responded but flared during taper. He also developed low-level nausea and abd discomfort concerning for GvHD, emp irically treated with oral non-absorbables with resolution. - He had tapered prednisone to 10 mg po daily when he developed a rash for which he was see n in the ED in [place] in late 01/21. Prednisone was increased back [...] po weekly x 8 week with repeat [id number] at completion of therapy --> repeat HgbA1c in 3 months with consideration for fasting labs if elevated 8. Follow up -->RTC to f/u with me in 1 month per pt request, sooner prn [facility] YANES [facility] AT [address] Mailcode: [id number] [place] [address] documented in this enc ounter [...] Rd | | | | | | [place], [place] | | | | | | [address] | | | | | | [phone] | | | | | | | | +--------+---------+ + + + documented as of this encounter Results [facility] - COMPLETE METABOLIC SET (11/18/2018 10:07 AM [...] | | | LABORATORY | | | [facility] | | | SERVICES, | | | [...] MDRD equation recommended by the National | [facility]U | | Kidney Disease Education Program. Estimated [...] | + + + + + | [facility] | [address] | [place] [address] | | | SERVICES, CORE | PARK [...] [facility] | [address] | [place] [address] | | | SERVICES, CORE | PARK [...] [facility] | [address] | [place] [address] | | | SERVICES, CORE | PARK [...] | + + + + + | [facility] | [address] | [place] [address] | | | SERVICES, CORE | PARK [...] (H)Comment: Hgb A1C | <5.7 % | [facility] | | | A1C | Interpretive | [...] | [facility] | | considered for monitoring residential glycemic control in patients with: | LABORATORY [...] | + + + + + | [facility] | [address] | [place] [address] | | | SERVICES, SPECIAL | WALLY [...]
--- OUTSIDE RECORDS SUMMARY | ~2019-05-17 | XMS | Encounter Summary ---
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 | | | | [address] | [address] | ([facility]) (Primary Dx); | | | | Mailcode: [id number] | [place], [place] | Status post total | | | | [facility] | [address] | replacement of left | | | | [place], [place] | [phone] | hip | | | | [address] | | | | | | [phone] | | | +--------+ + + + [...] Rd | | | | | | [place], [place] | | | | | | [address] | | | | | | [phone] | | | | | | | | +--------+---------+ + + + documented as of this encounter Results X-RAY HIP 2 VIEWS LEFT W/ PELVIS 1 VIEW (10/18/2016 10:06 AM PDT) + + | Specimen | + + | | + + + + + | Narrative | Performed At | + + + | STUDY: HIP 2 VIEWS LEFT W/ PELVIS 1 VIEW 10/18/16 10:06:09 | [facility] | | COMPARISON: 03/30/16 through 09/07/16. HISTORY: Osteonecrosis of the | RADIOLOGY VOICE | | left femur. Arthroplasty. FINDINGS: The non-cemented left | RECOGNITION | | total hip arthroplasty is in normal alignment with no hardware failure | | | or loosening. The right femoral head osteonecrosis with curvilinear | | | sclerosis and lucency within the femoral head is unchanged. No obvious | | | articular surface irregularity is noted. The right hip joint space is | | | preserved. The SI joint spaces and symphysis pubis are maintained. | | | Soft tissues are normal. IMPRESSION: Left total hip | | | arthroplasty in normal alignment with intact hardware. Unchanged | | | right femoral head osteonecrosis. I have personally reviewed | | | the images and, if necessary, edited the report. I agree with the | | | report as now presented. | | + + + + + | Procedure Note | + + | Service Account, Radiant Res In Interface - 10/18/2016 11:26 AM PDT STUDY: HIP 2 | | VIEWS LEFT W/ PELVIS 1 VIEW 10/18/16 10:06:09COMPARISON: 03/30/16 through 09/07/16.HISTORY: | | Osteonecrosis of the left femur. Arthroplasty.FINDINGS: The non-cemented left total hip | | arthroplasty is in normal alignment with no hardware failure or loosening. The right | | femoral head osteonecrosis with curvilinear sclerosis and lucency within the femoral | | head is unchanged. No obvious articular surface irregularity is noted. The right hip | | joint space is preserved. The SI joint spaces and symphysis pubis are maintained. Soft | | tissues are normal.IMPRESSION:Left total hip arthroplasty in normal alignment with | | intact hardware.Unchanged right femoral head osteonecrosis.I have personally reviewed | | the images and, if necessary, edited the report. I agree with the report as now | | presented. | |IMPRESSION: | | | |Left total hip arthroplasty in normal alignment with intact hardware. | | | |Unchanged right femoral head osteonecrosis. | | | | | | | |I have [...] (HCC) - Primary | + + | Status post total replacement of left hip | + + documented in this encounter"
--- OUTSIDE RECORDS SUMMARY | ~2019-05-17 | XMS | Encounter Summary ---
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 | | | | | for | [address] | Hospital | | | | | long-term | Phone: | [place], [place] | | | | | current use | [phone] | [address] | | | | | of | Fax: | Phone: | | | | | medication | [phone] | [phone] | | | | | Procedures | | Fax: | | | | | CT SINUS WO | | [phone] | | | | | CONTRAST | | | | | | | ROUTINE | | | | | | | (LANDMARX | | | | | | | PROTOCOL) | | | | | | | CT CT | | | | | | | SCAN,MAXILLO | | | | | | | FACIAL | | | | | | | AREA,W/O | | | | | | | CONTRAST | | | +--------+--------+ + + + + Diagnostic Testing (Routine) +--------+--------+ + + + + | Status | Reason | Specialty | Diagnoses / | Referred By | Referred To | | | | | Procedures | Contact | Contact | +--------+--------+ + + + + | Closed | | Radiology | Diagnoses | Jose | [address] Scan | | | | | AML (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 | | | | | for | [address] | Hospital | | | | | long-term | Phone: | [place], [place] | | | | | current use | [phone] | [address] | | | | | of | Fax: | Phone: | | | | | medication | [phone] | [phone] | | | | | Procedures | | Fax: | | | | | CT | | [phone] | | | | | MAX'FACIAL | | | | | | | WWO CONTRAST | | | | | | | CT CT | | | | | | | SCANS | | | | | | | FACE/JAW | | | | | | | COMBO | | | +--------+--------+ + + + + Physical Therapy (Routine) +--------+--------+ + + + + | Status | Reason | Specialty | Diagnoses / | Referred By | Referred To | | | | | Procedures | Contact | Contact | +--------+--------+ + + + + | Closed | | Physical | Diagnoses | Cook, | [facility] | | | | Therapy | AML (acute | Yari Jones MD | [address] | | | | | myeloid | [address] | | | | | leukemia) | Paulina Eugene | Mailcode: | | | | | (HCC) | Wally Calderon | [facility] | | | | | Encounter | [place], [place] | for Health | | | | | for | [address] | and Healing, | | | | | long-term | Phone: | [address], | | | | | current use | [phone] | [address] | | | | | of | Fax: | [place], [place] | | | | | medication | [phone] | [address] | | | | | Procedures | | Phone: | | | | | PHYSICAL | | [phone] | | | | | THERAPY | | Fax: | | | | | REFERRAL | | [phone] | +--------+--------+ + + + + Diagnostic Testing (Routine) +--------+--------+ + + + + | Status | Reason | Specialty | Diagnoses / | Referred By | Referred To | | | | | Procedures | Contact | Contact | +--------+--------+ + + + + | Closed | | Cardiology | Diagnoses | Cook, | Car Echo | | | | | AML (acute | Yari Jones MD | [facility] [address] | | | | | myeloid | [address] | Paulina Eugene | | | | | leukemia) | Paulina Eugene | Wally Calderon | | | | | ([facility]) | Wally Calderon | Mailcode: | | | | | Encounter | [facility], [place] | [address] | | | | | for | [address] | [address] | | | | | long-term | Phone: | Building | | | | | current use | [phone] | [place], [place] | | | | | of | Fax: | [address] | | | | | medication | [phone] | Phone: | | | | | Procedures | | [phone] | | | | | TRANSTHORACI | | | | | | | C | | | | | | | ECHOCARDIOGR | | | | | | | AM, ADULT | | | | | | | CT ECHO | | | | | | | HEART | | | | | | | XTHORACIC,CO | | | | | | | MPLETE | | | +--------+--------+ + + + + Reason for Visit + + + | Reason | Comments | + + + | Pre-Transplant | ITINERARY | | Evaluation | | + + + Encounter Details +--------+ + + + + | Date | Type | Department | Care Team | Description | +--------+ + + + + | 08/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 | Yari Garcia MD | 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) | | | | Malignancies at | [facility] [facility] | (Primary Dx); | | | | [address] | [place], [place] | Encounter for | | | | [address] [facility] | [address] | long-term current | | | | Wally Calderon Mailcode: | [phone] | use of medication | | | | [id number] | | | | | | [place], | | | | | | [place] [address] | | | | | | [phone] | | | +--------+ + + + [...] [place] | | | | | | [address] | | | | | | [phone] | | | | | | | | +--------+---------+ + + + documented as of this encounter Procedures + +--------+ + + + | Procedure Name | Priori | Date/Time | Associated Diagnosis | Comments | | | ty | | | | + +--------+ + + + | 12 LEAD ECG | Routin | 08/10/2015 | AML (acute myeloid | Results for this | | | e | 9:48 AM | leukemia) (HCC) | procedure are in the | | | | PST | Encounter for | results section. | | | | | long-term current | | | | | | use of medication | | + +--------+ + + + | TRANSTHORACIC | Routin | 08/10/2015 | AML (acute myeloid | Results for this | | ECHOCARDIOGRAM, | e | 9:19 AM | leukemia) ([facility]) | procedure are in the | | ADULT | | PST | Encounter for | results section. | | | | | long-term current | | | | | | use of medication | | + +--------+ + + + documented in this encounter Results 12 LEAD ECG (08/10/2015 9:48 AM PST) + + + + + + | Component | Value | Ref Range | Performed | Pathologist | | | | | At | Signature | + + + + + + | VENTRICULAR | 67 | bpm | [facility] | | | RATE | | | OF | | | | | | CARDIOLOGY | | + + + + + + | ATRIAL RATE | 67 | bpm | [facility] | | | | | | OF | | | | | | CARDIOLOGY | | + + + + + + | P-R | 168 | ms | [facility] | | | INTERVAL | | | OF | | | | | | CARDIOLOGY | | + + + + + + | P AXIS | 72 | deg | [facility] | | | | | | OF | | | | | | CARDIOLOGY | | + + + + + + | QRS | 98 | ms | [facility] | | | DURATION | | | OF | | | | | | CARDIOLOGY | | + + + + + + | QT | 400 | ms | [facility] | | | | | | OF | | | | | | CARDIOLOGY | | + + + + + + | QTCB | 423 | ms | [facility] | | | | | | OF | | | | | | CARDIOLOGY | | + + + + + + | R AXIS | 17 | deg | [facility] | | | | | | OF | | | | | | CARDIOLOGY | | + + + + + + | T AXIS | 53 | deg | [facility] | | | | | | OF | | | | | | CARDIOLOGY | | + + + + + + | ECG | SINUS RHYTHM- NORMAL ECG | | [facility] | | | IMPRESSION | -Electronically signed | | OF | | | | by: JOSE DYE | | CARDIOLOGY | | | | 08-10-2015 12:03:25 | | | | + + + [...] + + + + + | [facility] | [address] | [place], [place] | | | CARDIOLOGY | [address] | [address] | | + + + + + TRANSTHORACIC ECHOCARDIOGRAM, ADULT (08/10/2015 9:19 AM PST) + + + + + + | Component | Value | Ref Range | Performed | Pathologist | | | | | At | Signature | + + + + + + | BIPLANE, EF | 57 | | [facility] [...] | + + + + + | [facility] | [address] | [place], [place] | | | CARDIOLOGY | [address] | [address] | | + + + + + SPIROMETRY, PULM FUNCTION LAB (08/09/2015 12:54 PM PST) + + + + + + | Component | Value | Ref Range | Performed | Pathologist | | | | | At | Signature | + + + + + + | PULMONARY | Name: RAZA, | | [facility] | | | INTERPRETAT | KHURRAM MARIA M ID: | | SPECIAL | | | ION | [id number]: | | DIAGNOSTICS | | | | Height: 74.41 Inches | | - | | | | Age: 25Tech: Leigha, | | PULMONARY | | | | Richa Weight: 183.21 | | FUNCTION | | | | Lbs Sex: | | | | | | MaleVisitDate: | | | | | | 08/09/2015 VisitTime: | | | | | | 12:54:49 PM Race: | | | | | | CaucasianSecondary ID:PT | | | | | | ID: DoctorID:Change | | | | | | Status:Diagnosis: | | | | | | [id number] 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 | | | | | | The results of this | | | | | | test meet the ATS | | | | | | standards | | | | | | foracceptability and | | | | | | repeatability. | | | | | | | | | | | | PRE-BRONCH | | | | | | | | | | | | POST-BRONCH | | | | | | | | | | | | Sara Prd | | | | | | %Prd Sara | | | | | | %prd | | | | | | %Chg@SPIROMETRY$FVC | | | | | | (L) | | | | | | 6.98 6.31 | | | | | | 999CKV4 (L) | | | | | | | | | | | | 5.13 5.16 | | | | | | 99FEV1/FVC (%) | | | | | | 73 | | | | | | 83 88FEF | | | | | | 25% (L/sec) | | | | | | 7.60 8.65 | | | | | | 88FEF 50% (L/sec) | | | | | | 4.71 | | | | | | 5.47 86FEF | | | | | | 75% (L/sec) | | | | | | 2.03 2.30 | | | | | | 88FEF 25-75% | | | | | | (L/sec) 4.12 | | | | | | 5.15 80FEF | | | | | | Max (L/sec) | | | | | | 8.89 11.22 | | | | | | 79FIVC (L) | | | | | | | | | | | | 6.69FIF 50% (L/sec) | | | | | | 6.57 | | | | | | 9.36 70FIF Max | | | | | | (L/sec) | | | | | | 6.87MVV (L/min) | | | | | | | | | | | | 199MEP (cmH2O) | | | | | | | | | | | | 231MIP (cmH2O) | | | | | | | | | | | | -126@LUNG | | | | | | VOLUMES$SVC (L) | | | | | | | | | | | | 6.01IC (L) | | | | | | | | | | | | 3.91ERV | | | | | | (L) | | | | | | | | | | | | 2.10FRC (N2) (L) | | | | | | | | | | | | 3.86RV (N2) (L) | | | | | | | | | | | | 1.76TLC (N2) (L) | | | | | | | | | | | | 7.77RV/TLC | | | | | | (N2) (%) | | | | | | | | | | | | 22Washout Time | | | | | | (min)FRC (pl) (L) | | | | | | | | | | | | 3.86RV (Pleth) (L) | | | | | | | | | | | | 1.76TLC (Pleth) (L) | | | | | | | | | | | | 7.77RV/TLC (Pleth) | | | | | | (%) | | | | | | 22Trapped Gas | | | | | | (L)@DIFFUSION$DLCOunc | | | | | | (ml/min/mmHg) | | | | | | 22.10 36.03 | | | | | | 61DLCOadj | | | | | | (ml/min/mmHg) | | | | | | 29.82 36.03 | | | | | | 83DL/VA | | | | | | (ml/min/mmHg/L) | | | | | | 3.36 4.64 | | | | | | 72VA (L) | | | | | | 8.88 | | | | | | 7.77 | | | | | | 114@AIRWAYS$Raw | | | | | | (cmH2O/L/s) [...] | | | | | | | 98.3Base ExcessHgb | | | | | | (gm/dL) | | | | | | 7.9 | | | | | | Interpretation:INTERPRET | | | | | | ATION: SPIROMETRY: | | | | | | Spirometry is within | | | | | | normal limits for | | | | | | age,height and sex. | | | | | | DIFFUSING CAPACITY: The | | | | | | diffusing capacity is | | | | | | withinnormal limits. | | | | | | This interpretation of | | | | | | diffusing capacity | | | | | | takes intoaccount the | | | | | | patient's hemoglobin | | | | | | level. Hemoglobin of | | | | | | 7.9 was used. | | | | | | CONCLUSION: Normal | | | | | | PFT's. read by GR | | | | | | This interpretation | | | | | | hasbeen electronically | | | | | | signed: Chase Lema | | | | | | 08/15/2015 10:40:46 | | | | | | AM | | | | + + + + + + | FVC PRE | 6.98 | 6.31 L | [facility] | | | | | | SPECIAL | | | | | | DIAGNOSTICS | | | | | | - | | | | | | PULMONARY | | | | | | FUNCTION | | + + + + + + | FVC PRE | 110 | % | [facility] | | | (%REF) | | | SPECIAL | | | | | | DIAGNOSTICS | | | | | | - | | | | | | PULMONARY | | | | | | FUNCTION | | + + + + + + | FEV1 PRE | 5.13 | 5.16 L | [facility] | | | | | | SPECIAL | | | | | | DIAGNOSTICS | | | | | | - | | | | | | PULMONARY | | | | | | FUNCTION | | + + + + + + | FEV1 PRE | 99 | % | [facility] | | | (%REF) | | | SPECIAL | | | | | | DIAGNOSTICS | | | | | | - | | | | | | PULMONARY | | | | | | FUNCTION | | + + + + + + | FEV1/FVC | 73 | 83 % | [facility] | | | PRE | | | SPECIAL | | | | | | DIAGNOSTICS | | | | | | - | | | | | | PULMONARY | | | | | | FUNCTION | | + + + + + + | FEV1/FVC | 88 | % | [facility] | | | PRE (%REF) | | | SPECIAL | | | | | | DIAGNOSTICS | | | | | | - | | | | | | PULMONARY | | | | | | FUNCTION | | + + + + + + | PEF PRE | 8.89 | 11.22 L/sec | [facility] | | | | | | SPECIAL | | | | | | DIAGNOSTICS | | | | | | - | | | | | | PULMONARY | | | | | | FUNCTION | | + + + + + + | PEF PRE | 79 | % | [facility] | | | (%REF) | | | SPECIAL | | | | | | DIAGNOSTICS | | | | | | - | | | | | | PULMONARY | | | | | | FUNCTION | | + + + + + + | JAT11-90% | 4.12 | 5.15 L/sec | [facility] | | | PRE | | | SPECIAL | | | | | | DIAGNOSTICS | | | | | | - | | | | | | PULMONARY | | | | | | FUNCTION | | + + + + + + | NVH12-56% | 79 | % | [facility] | | | PRE (%REF) | | | SPECIAL | | | | | | DIAGNOSTICS | | | | | | - | | | | | | PULMONARY | | | | | | FUNCTION | | + + + + + + | FIF50% PRE | 6.57 | 9.36 L/sec | [facility] | | | | | | SPECIAL | | | | | | DIAGNOSTICS | | | | | | - | | | | | | PULMONARY | | | | | | FUNCTION | | + + + + + + | FIF50% PRE | 70 | % | [facility] | | | (%REF) | | | SPECIAL | | | | | | DIAGNOSTICS | | | | | | - | | | | | | PULMONARY | | | | | | FUNCTION | | + + + + + + | DLCO PRE | 22.10 | 36.03 | [facility] | | | | | ml/min/mmHg | SPECIAL | | | | | | DIAGNOSTICS | | | | | | - | | | | | | PULMONARY | | | | | | FUNCTION | | + + + + + + | DLCO PRE | 61 | % | [facility] | | | (%REF) | | | SPECIAL | | | | | | DIAGNOSTICS | | | | | | - | | | | | | PULMONARY | | | | | | FUNCTION | | + + + + + + | DLCO ADJ | 29.82 | 36.03 | [facility] | | | PRE | | ml/min/mmHg | SPECIAL | | | | | | DIAGNOSTICS | | | | | | - | | | | | | PULMONARY | | | | | | FUNCTION | | + + + + + + | DLCO ADJ | 82 | % | [facility] | | | PRE (%REF) | | | SPECIAL | | | | | | DIAGNOSTICS | | | | | | - | | | | | | PULMONARY | | | | | | FUNCTION | | + + + + + + | DLCO/VA ADJ | 3.36 | ml/min/mmHg/L | [facility] | | | PRE | | | SPECIAL | | | | | | DIAGNOSTICS | | | | | | - | | | | | | PULMONARY | | | | | | FUNCTION | | + + + + + + | DLCO/VA ADJ | 72 | % | [facility] | | | [...] [facility] | [address] | [place], [place] | | | DIAGNOSTICS - | [address] | [address] | | | PULMONARY FUNCTION | | | | + + + + + CMV PCR QUANTITATION, PLASMA (08/09/2015 8:32 AM PST) + + + + + [...] 2 fold may not reflect true | [facility] | | biological changes and must [...] | | | characteristics determined by the [facility] | | | [facility]. It has not been cleared or approved by | | | the Food and Drug Administration. FDA approval is not required for | | | clinical use of this test, and therefore validation was done as | | | required under the requirements of the Clinical Laboratory Improvement | | | Act of 1988. The [facility] Molecular | | | Diagnostic Center is a fully licensed and/or accredited clinical | | | laboratory under CLIA, CAP, and the [facility]. | | + + + + + + + + | Performing | Address | City/State/Zipcode | Phone Number | | Organization | | | | + + + + + | [facility] | [address] | [place] [address] | | | DIAGNOSTIC | [address] | | | | LABORATORIES | | | | + + + + + TOMMY VOSS VIRUS PANEL, SERUM (08/09/2015 8:32 AM PST) + + + + + + | Component | Value | Ref Range | Performed | Pathologist | | | | | At | Signature | + + + + + + | TOMMY | 50.6 (H)Comment: | 0.0 - 21.9 U/mL | [...] at | | | | | | [email or web address] | | | | | | x. [...] at | | | | | | [email or web address] | | | | | | x. | | | | + + + + + + | AB TO | 53.8 (H)Comment: | 0.0 - 21.9 U/mL | [...] at | | | | | | [email or web address] | | | | | | x. [...] at | | | | | | [email or web address] | | | | | | x.Performed by [facility] | | | | | | [facility],[address] [place] [address] | | | | | | [place] [address] | | | | | | [phone]. | | | | | | Elmo greenwood, | | | | | | Dilip PERERA. Director | | | | + + + + + + + + | Specimen | + + | Blood - Blood | + + + + + + + | Performing | Address | City/State/Zipcode | Phone Number | | Organization | | | | + + + + + | [facility] | [address] | [place], [place] | | | [facility] | | [address] | | + + + + + TOXOPLASMA IGG AB, SERUM (08/09/2015 8:32 AM PST) + + + + + + | Component | Value | Ref Range | Performed | Pathologist | | | | | At | Signature | + + + + + + | TOXOPLASMA | 3 | <=9 IU/mL | [facility] - | [...] | + + + + + | [facility] - | [address] | [place] [address] | | | [place] | | | | + + + + + HEPATITIS B SURFACE AB QUAL, SERUM (08/09/2015 8:32 AM PST) + + + + + [...] + | [facility] - | [address] | [place] [address] | | | [place] | | | | + + + + + HEPATITIS A AB SCREEN, SERUM (08/09/2015 8:32 AM PST) + + + + + [...] + | [facility] - | [address] | [place] [address] | | | [place] | | | | + + + + + VARICELLA ZOSTER IGG, SERUM (08/09/2015 8:32 AM PST) + + + + + [...] | + + + + + | [facility] - | [address] | [place] [address] | | | [place] | | | | + + + + + HSV ANTIBODY, SERUM (08/09/2015 8:32 AM PST) + + + + + + | Component | Value | Ref Range | Performed | Pathologist | | | | | At | Signature | + + + + + + | HSV 1/2 IGG | 6.00Comment: | IV | [facility] | | | [...] + + | HSV 1/2 IGM | 0.52Comment: | <=0.89 IV | [facility] | | [...] [place] | | | | | | [place], [facility] [place] [address] | | | | | | [phone]. | | | | | | timo, Elmo Roberts, | | | | | | Dilip PERERA. Director | | | | + + + + + + + + | Specimen | + + | Blood - Blood | + + + + + + + | Performing | Address | City/State/[facility] Hospital[facility] | Phone Number | | Organization | | | | + + + + + | [facility] | [address] | [place], [place] | | | [facility] | | [address] | | + + + + + INR (08/09/2015 8:31 AM PST) + +-------+ + + + | Component | Value | Ref Range | Performed | Pathologist | | | | | At | Signature | + +-------+ + + + | INR | 1.01 | 0.90 - 1.20 INR | [facility] [...] mech. valves (2.5 - 3.5) INR | INDRA SHARIF | + + + + + + + + | Performing | Address | City/State/Zipcode | Phone Number | | Organization | | | | + + + + + | [facility] | [address] | [place] [address] | | | SERVICESINDRA | [address] | | | + + + + + APTT (ACT. PART. THROMBO TIME) (08/09/2015 8:31 AM PST) + +-------+ + + + | Component | Value | Ref Range | Performed | Pathologist | | | | | At | Signature | + +-------+ + + + | APTT | 33.6 | 26.0 - 36.0 | [facility] | [...] 0.7 U/mL | LABORATORY | | | SERVICESINDRA | + + + + + + + + | Performing | Address | City/State/Zipcode | Phone Number | | Organization | | | | + + + + + | [facility] | [address] | [place] [address] | | | INDRA SHARIF | [address] | | | + + + + + CHOLESTEROL TOTAL, PLASMA (08/09/2015 8:31 AM PST) + +-------+ + + + | Component | Value | Ref Range | Performed | Pathologist | | | | | At | Signature | + +-------+ + + + | CHOLESTEROL | 149 | <200 mg/dL | [facility] | | [...] [address] | [place] [address] | | | SERVICES, CORE | [address] | | | + + + + + LDH TOTAL, PLASMA (08/09/2015 8:31 AM PST) + +---------+ + + + | Component | Value | Ref Range | Performed | Pathologist | | | | | At | Signature | + +---------+ + + + | LD TOTAL, | 136 | <=250 U/L | [facility] | | [...] | + + + + + | [facility] | [address] | [place] [address] | | | SERVICES, CORE | [address] | | | + + + + + BILIRUBIN DIRECT (08/09/2015 8:31 AM PST) + +---------+ + + + [...] [address] | [place] [address] | | | SERVICES, CORE | [address] | | | + + + + + URIC ACID, PLASMA (08/09/2015 8:31 AM PST) + +---------+ + + + [...] | + + + + + | [facility] | [address] | [place] [address] | | | SERVICES, CORE | [address] | | | + + + + + PHOSPHORUS, PLASMA (08/09/2015 8:31 AM PST) + +---------+ + + + | Component | Value | Ref Range | Performed | Pathologist | | | | | At | Signature | + +---------+ + + + | PHOSPHORUS, | 5.0 (H) | 2.4 - 4.7 mg/dL | [facility] [...] [facility] | [address] | [place] [address] | | | SERVICES, CORE | [address] | | | + + + + + MAGNESIUM, PLASMA (08/09/2015 8:31 AM PST) + +-------+ + + + | Component | Value | Ref Range | Performed | Pathologist | | | | | At | Signature | + +-------+ + + + | MAGNESIUM,P | 2.3 | 1.8 - 2.5 mg/dL | [facility] [...] [facility] | [address] | [place] [address] | | | SERVICES, CORE | [address] | | | + + + + + COMPLETE METABOLIC SET (NA,K,CL,CO2,BUN,CREAT,GLUC,CA,AST,ALT,BILI TOTAL,ALK PHOS,ALB,PROT TOTAL) (08/09/2015 8:31 AM PST) + +---------+ + + + | Component | Value | Ref Range | Performed | Pathologist | | | | | At | Signature | + +---------+ + + + | GLUCOSE, | 98 | 60 - 99 mg/dL | [facility] | | | PLASMA | | | LABORATORY | | | (LAB) | | | SERVICES, | | | | | | CORE | | + +---------+ + + + | BUN, PLASMA | 14 | 6 - 20 mg/dL | [facility] | | | (LAB) | | | LABORATORY | | | | | | SERVICES, | | | | | | CORE | | + +---------+ + + + | CREATININE | 0.99 | 0.70 - 1.30 | [facility] | | | PLASMA | | mg/dL | LABORATORY | | | (LAB) | | | SERVICES, | | | | | | CORE | | + +---------+ + + + | EGFR | >60 | >60 mL/min | [facility] | | | - | | | LABORATORY | | | [facility] | | | SERVICES, | | | [...] +---------+ + + + | CALCIUM, | 9.1 | 8.6 - 10.2 | [facility] | [...] +---------+ + + + | AST(SGOT) | 26 | <=41 U/L | [facility] | | | | | | LABORATORY | | | | | | SERVICES, | | | | | | CORE | | + +---------+ + + + | ALT (SGPT) | 53 | <=60 U/L | [facility] | | [...] the MDRD equation recommended by the | [facility] | | National Kidney Disease Education Program. Estimated GFR | LABORATORY | | Interpretive Information: <60 mL/min/1.73 sq m | [facility] | | Chronic Kidney Disease <15 mL/min/1.73 [...] | + + + + + | [facility] | [address] | [place] [address] | | | SERVICES, CORE | PARK [...]
--- OUTSIDE RECORDS SUMMARY | ~2019-05-17 | XMS | Encounter Summary ---
Demographics + + + | Address | [address] | | | [place] [address] | + + + | Home Phone | | + + + | Preferred Language | Unknown | + + + | Marital Status | | + + + | Uatsdin Affiliation | SPI | + + + [...] Providers + +------+ + | [employer] Driver Name | Role | Phone | + +------+ + | Zayda Hinton | PCP | | + +------+ + Encounter Details +--------+ + + + + | Date | Type | Department | Care Team | Description | +--------+ + + + + | 05/15/ | Pharmacy | Specialty Pharmacy | | | | 2015 | Visit | Services [address] | | | | | | [address] | | | | | | [place], [place] | | | | | | [address] | | | | | | [phone] | | | +--------+ + + + [...] 2019 | Visit | Malignancy | [address] [facility] [address] | | | | | | [address] | | | | | | [place], [place] | | | | | | [address] | | | | | | [phone] | | | | | | | | +--------+---------+ + + + documented as of this encounter Visit Diagnoses Not on filedocumented in this encounter"
--- OUTSIDE RECORDS SUMMARY | ~2019-05-17 | XMS | Encounter Summary ---
Demographics + + + | Address | [address] | | | [place] [address] | + + + | Home Phone | | + + + | Preferred Language | Unknown | + + + | Marital Status | | + + + | Alevism Affiliation | SPI | + + + [...] Team Providers + +------+ + | Care Wharf Worker Name | Role | Phone | [...] | | | | | | [place], | | | | | | | [place] | | | | | | | [address] | | | | | | | Phone: | | | | | | | [phone] | | | | | | | Fax: | | | | | | | [phone] | +--------+--------+ + + + + Encounter Details +--------+---------+ + + + | Date | Type | Department | Care Team | Description | +--------+---------+ + + + | 04/12/ | Office | Center for | Aspen Cummins FNP | Acute myelomonocytic | | 2016 | Visit | Hematologic | [address] | leukemia in | | | | Malignancies at | [address] | remission (HCC) | | | | [facility] | [place], [place] | (Primary Dx) | | | | [address] | [address] | | | | | Debi Burger Mailcode: | [phone] | | | | | [id number] | | | | | | [place], | | | | | | [place] [address] | | | | | | [phone] | | | +--------+---------+ + + + [...] + + + | Blood Pressure | 121/79 | 04/12/2016 12:47 PM | | | | | PDT | | + + + + + | Pulse | 73 | 04/12/2016 12:47 PM | | | | | PDT | | + + + + + | Temperature | 36.8 C (98.3 F) | 04/12/2016 12:47 PM | | | | | PDT | | + + + + + | Respiratory Rate | 16 | 04/12/2016 12:47 PM | | | | | PDT | | + + + + + | Oxygen Saturation | 98% | 04/12/2016 12:47 PM | | | | | PDT | | + + + + + | Inhaled Oxygen | - | - | | | Concentration | | | | + + + + + | Weight | 93.8 kg (206 lb 12.7 | 04/12/2016 12:47 PM | | | | oz) | PDT | | + + + + + | Height | - | - | | + + + + + | Body Mass Index | 26.26 | 01/25/2016 8:24 AM | | | | | PDT | | + + + + + documented in this encounter Progress Notes Aspen Cummins FNP - 04/12/2016 8:32 AM PDT 04/12/2016 [facility] CHM MD: Yari Garcia MD Primary Oncologist: Yari Garcia MD Diagnosis: AMML, primary refractory Transplant Date: 08/27/15 Donor: MM URD (DPB1 permissive antigen mismatch, male, [id number]) Identifying Data: Khurram Kelly is a 25 [...] his L ankle. He was evaluated at [facility] ED on 06/[address] angiogram [...] acute myelomonocytic leukemia. He was referred to [facility] for further evaluation and man agement of his newly dx'd AML. Pt was admitted to [facility] on 05/26/15. Peripheral blood was sent [...] CD34, variable CD56, variable CD117, and dim [id number] mickey; promonocyte immunophenotype (70% by flow): CD11b, [...] durin g taper. He is currently day +229 s/p transplant, s/p 6 cycles of azacitidine and returns to clinic today for scheduled follow-up. Interim History: Khurram was most recently evaluated in [facility] by Yari Garcia MD on 03/30/16. He continues to feel well overall. Appetite i s down a bit, still feels he's eating well. No c/o N/V/D. Active around the house but notes increased fatigue over the last week or two. He thinks the change in weather may be contrib uting to his fatigue. Typically sleeps until 1100, sleeps well at night. Pt notes erasmo wang anxiety as his scheduled trip to [place] for the [employer] this weekend draws closer. He hasn't flown since he was a child, anxious about the trip. Review of Systems Constitutional: Positive for malaise/fatigue. Negative for fever and chills. HENT: Negative for headaches, congestion and sore throat. Respiratory: Negative for cough and shortness of breath. Cardiovascular: Negative for chest pain and leg swelling. Gastrointestinal: Negative for nausea, vomiting, abdominal pain and diarrhea. Genitourinary: Negative for dysuria. Musculoskeletal: Positive for back pain. Negative for myalgias and joint pain. Skin: Negative for rash. Neurological: Negative for dizziness, tingling, tremors and weakness. All other systems reviewed and are negative. Current Outpatient Prescriptions Medication Sig acyclovir 800 mg oral tablet Take 1 tablet by mouth two times daily. ALPRAZolam 0.25 mg oral tablet Take 2 tablets by mouth three times daily as needed. Ind ications: ANXIETY amLODIPine 5 mg oral tablet Take [...] narcotics. predniSONE 10 mg oral tablet Take 15 mg (one and one-half tablets) by mouth once every other day tacrolimus 0.5 mg oral capsule Take 0.5 mg (one capsule) by mouth twice daily triamcinolone acetonide 0.1 % topical cream Apply topically to affected area three time s daily. Apply thin film to affected areas. trimethoprim-sulfamethoxazole 160-800 mg oral tablet Take 1 tablet by mouth twice daily (every Sunday and ). No current facility-administered medications for this visit. Allergies Allergen Reactions Chlorhexidine Towelette Rash PAVAN cloths - ok to use Chloraprep for dresssing change per pt. Filed Vitals: 04/12/2016 12:47 PM Weight: 93.8 kg (206 lb 12.7 oz) BP: 121/79 Pulse: 73 Temp: 36.8 C (98.3 F) TempSrc: Oral Resp: 16 SpO2: 98% PainSc: 0 - Zero BMI: 26.26 kg/(m^2) Physical Exam Constitutional: He is well-developed, [...] reviewed. Lab Results Component Value Date WBC 7.0 04/12/2016 HB 14.5 04/12/2016 HCT 42.7 04/12/2016 PLT 167 04/12/2016 MCV 100.7 04/12/2016 RDW 60.3 11/22/2015 Lab Results Component Value Date BICARB 24 04/12/2016 TBILI 0.4 04/12/2016 CA 9.2 04/12/2016 CL 104 04/12/2016 CR 1.04 04/12/2016 GLU 91 04/12/2016 AP 81 04/12/2016 TP 7.6 04/12/2016 BUN 14 04/12/2016 ALB 4.3 04/12/2016 AST 47* 04/12/2016 NA 136 04/12/2016 K 4.0 04/12/2016 ALT 89* 04/12/2016 Assessment/Plan: 1. 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 His most recent marrow studies comple edward 11/22/15 showed a hypocellular marrow (patchy 15%) with trilineage hematopoiesis and no m orphologic and immunologic evidence of acute leukemia. Karyotype 46,XY[19]. VNTR showed no d etectable host cells. 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 He received 6 cycles of maintenance azacitidine between 11/01/15 and 03/21/16. Peripheral blood counts WNL with recovery of plts noted post chemo. No blood p roducts are required today, no evidence of disease by peripheral smear. --> continue CBC weekly; if stable, plan to decrease to qoweek after marrow resulted --> repeat marrow studies scheduled for 04/19/16 2. Madej-dz-Jvvk Disease: Skin bx due to mild rash [...] he was seen in the ED in [place] in late 01/21. Prednisone was increased back to 20 mg po daily. Skin bx 02/10/16 showed vaculolar inter face mixed dermatitis with eosinophils. DDx included GvHD and drug hypersensitivity reaction . Rash resolved with increased dose prednisone. Transaminitis noted, normalizing. Tolerating a taper of steroids without flare of his GvHD symptoms. Continues low dose tacrolimus, bude sonide. He has no s/s active GvHD at this time. --> decrease prednisone to 10 mg po every other day; continue to taper by 5 mg every other day q2 weeks --> continue tacrolimus 0.5 mg bid without additional taper until 2 weeks after completion of steroid taper --> continue budesonide BID 3. Infectious Disease: Afebrile without localizing s/s infection. He continues prophylactic acyclovir and bactrim. Hx post-transplant CMV reactivation, received a treatment course of valganciclovir. His most recent CMV PCR on 04/03/16 remains undetected. Immune reconstitution panel collected 11/22/15 showed normal total T cells with increased CD8+ T cell subsets, nor mal total NK cells, decreased B cells with decreased margarita B cells and minimal immune activ ation with CD4 count 385. Post transplant vaccines held due to azacitidine maintenance thera py. --> continue acyclovir and bactrim --> due to CMV reactivation prior to day +100, continue to monitor PCRs q2 weeks through da y +270 --> repeat immune reconstitution panel at day +270 and d/c bactrim if CD4 count > 300 --> begin post-transplant vaccines next visit including inactivated influenza vaccine --> advised pt to encourage his family/close contacts to receive the inactivated influenza vaccine also Lab Results Component Value Date CMVQUANTPCR Undetected 04/03/2016 CMVQUANTPCR Undetected 03/30/2016 CMVQUANTPCR Undetected 03/20/2016 CMVQUANTPCR Undetected 03/15/2016 4. Fluid, Electrolyte and Nutrition: Appetite has decreased a bit over the last week or two . Continues to feel he's eating well enough with adequate po fluid intake. No c/o N/V/D. Hi s electrolytes are reviewed and are within acceptable [...] Changed back to xanax with im provement. Interested in a peer support group. --> continue current meds --> referral to Transitions pending --> again encouraged pt to engage with [employer] to establish peer support or AYA support gr oup resources available at [facility] 7. Musculoskeletal: Pt reports low back pain which has developed over the last 1-2 months. Pain increased with activity, no neurologic symptoms associated with pain. Trialed acetamino phen, ibuprofen without relief. Some relief with oxycodone. Xrays bilat hips completed showed minimal degenerative changes of both hips. --> continue stretching --> may benefit from PT referral --> if pain persists, consider MRI for further evaluation 8. Follow up --> RTC to f/u with me, marrow studies on 04/19/16 --> scheduled to f/u with Yari Garcia MD on 04/24/16 for marrow review [facility] AT [address] Mailcode: [place] [place] [id number] documented in this enc ounter Plan of [...] Rd | | | | | | [place], [place] | | | | | | [address] | | | | | | [phone] | | | | | | | | +--------+---------+ + + + documented as of this encounter Visit Diagnoses + + | Diagnosis | + + | 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
--- OUTSIDE RECORDS SUMMARY | ~2019-05-17 | XMS | Encounter Summary ---
Demographics + + + | Address | [address] | | | [place] [address] | + + + | Home Phone | | + + + | Preferred Language | Unknown | + + + | Marital Status | | + + + | Catholic Affiliation | SPI | + + [...] Team Providers + +------+ + | Care Optomechanical Technician Name | Role | Phone | + +------+ + | Pending Pcp Addition | PCP | Unavailable | + +------+ + Encounter Details +--------+ + + + + | Date | Type | Department | Care Team | Description | +--------+ + + + + | 09/28/ | Polisher Apprentice | Center for | Em Saunders, | Acute myeloid | | 2016 | | Hematologic | PA-C [address] | leukemia (AML), M4 | | | | Malignancies at | [address] | (HCC)- primary | | | | Christian [address] | [place], [place] | induction failure | | | | [address] | [address] | (Primary Dx); S/P | | | | [address] Mailcode: | [phone] | allogeneic bone | | | | [address] | | marrow transplant | | | | [place], | | ([facility]) | | | | [place] [address] | | | | | | [phone] | | | +--------+ + + + [...] 2019 | Visit | Malignancy | [address] | | | | | | [address] | | | | | | [place], [place] | | | | | | [address] | | | | | | [phone] | | | | | | | [...] | | | | Interface | | ([facility])- primary | | | | [...] [facility] | [address] | [place] [address] | | | SERVICES, CORE | PARK [...] [facility] | [address] | [place] [address] | | | SERVICES, SPECIAL | PARK [...] | + + + + + | [facility] | [address] | [place] [address] | | | SERVICES, CORE | WALLY [...] SORTO | [address] | [place], [place] | | | [facility] | [address] | [address] | | | TESTS | | | [...]
--- OUTSIDE RECORDS SUMMARY | ~2019-05-17 | XMS | Encounter Summary ---
Demographics + + + | Address | [address] | | | [place] [address] | + + + | Home Phone [...] Team Providers + +------+ + | Care Navy Material Inspector Name | Role | Phone | [...] | | | | | | | [address] | | | | | | | [address] | | | | | | | [place], | | | | | | | [place] | | | | | | | [address] | | | | | | | Phone: | | | | | | | [phone] | | | | | | | Fax: | | | | | | | [phone] | +--------+--------+ + + + + Encounter Details +--------+---------+ + + + | Date | Type | Department | Care Team | Description | +--------+---------+ + + + | 03/30/ | Office | Center for | Yari Garcia MD | 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), M4 | | | | Malignancies at | [address] | (HCC)- primary | | | | [facility] | [place], [place] | induction failure | | | | [address] | [address] | (Primary Dx) | | | | De[address] Burger Mailcode: | [phone] | | | | | [address] | | | | | | [place], | | | | | | [place] [address] | | | | | | [phone] | | | +--------+---------+ + + + [...] + + + | Blood Pressure | 121/78 | 03/30/2016 9:39 AM | | | | | PDT | | + + + + + | Pulse | 67 | 03/30/2016 9:39 AM | | | | | PDT | | + + + + + | Temperature | 36.7 C (98 F) | 03/30/2016 9:39 AM | | | | | PDT | | + + + + + | Respiratory Rate | 18 | 03/30/2016 9:39 AM | | | | | PDT | | + + + + + | Oxygen Saturation | 100% | 03/30/2016 9:39 AM | | | | | PDT | | + + + + + | Inhaled Oxygen | - | - | | | Concentration | | | | + + + + + | Weight | 95.9 kg (211 lb 6.7 | 03/30/2016 9:39 AM | | | | oz) | PDT | | + + + + + | Height | - | - | | + + + + + | Body Mass Index | 26.85 | 01/25/2016 8:24 AM | | | | | PDT | | + + + + + documented in this encounter Patient Instructions Patient Instructions Yari Garcia MD - 03/30/2016 10:36 AM PDTJeremiah- You are doing well overall and we will do your end of treatment bone marrow biopsy on er . I sent the prescription for xanax to [facility]. Discontinue the klonazepam. I'd like you to see someone at [facility] for some counseling. Transitions is a group ange t focus' on the non-clinical needs of our patients. You would benefit from meeting with the . You can call [phone]. You can ask for Opal Castaneda. Ok to stop taking Magnesium. We will get an xray of your hips on the way out today. Call us if you are having any issues. We will see you once weekly with labs/office visit and infusion. ---Check out at the front line supervisor today and make your next appointments. You can also call the schedulers at [phone]. Decrease prednisone to 15 mg every other day starting tomorrow. If you have recurrence of the rash, diarrhea or anything new, CALL us. If you have any questions, or if you need prescription refills, or are experiencing any sym ptoms or side effects please call our grated cheese maker at [phone] documented in this encounter Progress Notes Yari Garcia MD - 03/30/2016 10:17 AM PDT 217 days post transplant 03/30/2016 [facility] Primary CHM MD: Yari Garcia MD Primary Oncologist: Yari Garcia MD Diagnosis: AMML, primary refractory Transplant Date: 08/27/15 Donor: MM URD (DPB1 permissive antigen mismatch, male, [id number]) Identifying Data: Khurram Kelly is a 25 [...] his L ankle. He was evaluated at [place] ED on 06/[address] angiogram negative [...] acute myelomonocytic leukemia. He was referred to [facility] for further evaluation and man agement of his newly dx'd AML. Pt was admitted to [facility] on 05/26/15. Peripheral blood was sent for [...] CD34, variable CD56, variable CD117, and dim ED300-hudbp mickey; promonocyte immunophenotype (70% by flow): CD11b, [...] durin g taper. He is currently day +217 s/p transplant, day 10, c6 of azacitidine and returns to clinic to day for scheduled follow-up. Interim History: Khurram returns to clinic today and is feeling well overall, though vinny nues to struggle with significant anxiety. He has not had any recurrence of the rash with d ecreasing doses of prednisone, no changes in bowels. Anxiety continues to be most focused on when he is out of the house and social interactions . He has joined a [employer] league thinking this would help, but finds it quite anxiety invok ing to go to. Has been using scheduled klonopin, but finding that this is relatively unhelp ful. [place] that xanax was able to help more. Concerned about upcoming travel and whether he can get through it. Having low back pain - does not seem to be activity related - feels more bony than muscular . Pleased with having completed chemotherapy. Continuing to sort out where they will likely live terminologist (i.e. ? Return to [place]?) A complete Review of Systems was completed and was negative except as documented above. Current Outpatient Prescriptions Medication Sig acyclovir 800 [...] 1 capsule by mouth three times daily. hydrocortisone 1 % topical cream Apply topically [...] for dresssing change per pt. Filed Vitals: 03/30/2016 9:39 AM Weight: 95.9 kg (211 lb 6.7 oz) BP: 121/78 Pulse: 67 Temp: 36.7 C (98 F) TempSrc: Oral Resp: 18 SpO2: 100% PainSc: 0 - Zero BMI: 26.85 kg/(m^2) Physical Exam Constitutional: He is well-developed, well-nourished, and in no distress. No distress. Cushingoid facies HENT: Mouth/Throat: Oropharynx is clear and moist. No oropharyngeal exudate. Eyes: Conjunctivae are normal. Right eye exhibits no discharge. Left eye exhibits no discha rge. No scleral icterus. Neck: Neck supple. Cardiovascular: Normal rate, regular rhythm and normal [...] No rash noted. He is not diaphoretic. No erythema. Psychiatric: Mood, memory, affect and judgment normal. Lab Results Component Value Date WBC 6.1 03/30/2016 HB 13.8 03/30/2016 HCT 40.7 03/30/2016 PLT 150 03/30/2016 MCV 103.3 03/30/2016 RDW 60.3 11/22/2015 Lab Results Component Value Date BICARB 26 03/30/2016 TBILI 0.4 03/30/2016 CA 9.5 03/30/2016 CL 99 03/30/2016 CR 0.7 03/30/2016 GLU 92 03/30/2016 AP 86 03/30/2016 TP 7.5 03/30/2016 BUN 12 03/30/2016 ALB 4.1 03/30/2016 AST 32 03/30/2016 NA 138 03/30/2016 K 4.2 03/30/2016 ALT 68* 03/30/2016 Assessment/Plan: 1. Hematology: Khurram Kelly is currently day +217 s/p tBuCy-conditioned unrel ated donor PBSC transplant [...] began maintenance azacitidine on 11/01/15, currently day 11, c 6. Peripheral blood counts WNL. No blood products are required today, no evidence of diseas e by peripheral smear. --> continue CBC q1 week --> no additional planned azacitidine after current cycle complete --> repeat marrow studies after c6 of azacitidine [scheduled 04/19/16] 2. Ndnpp-ui-Fhfo Disease: Skin bx due to mild rash [...] he was seen in the ED in [place] in late 01/21. Prednisone was increased back to 20 mg po daily. Skin bx 02/10/16 showed vaculolar inter face mixed dermatitis with eosinophils. DDx included GvHD and drug hypersensitivity reaction . Rash resolved with increased dose prednisone. Transaminitis noted, normalizing; ddx includ es GvHD, medications, iron overload, fatty liver. He has no s/s active GvHD at this time. --> decrease prednisone to 15 mg po every other day with plans to taper by 5 mg every other day q2 weeks --> continue tacrolimus 0.5 mg bid without additional taper until 2 weeks after completion of steroid taper --> continue oral non-absorbables 3. Infectious [...] vaccine when it becomes available in the community, pt to receive at next clinic visit Lab Results Component Value Date CMVQUANTPCR Undetected 03/20/2016 CMVQUANTPCR Undetected 03/15/2016 CMVQUANTPCR Undetected 03/06/2016 CMVQUANTPCR Undetected 02/28/2016 4. Fluid, Electrolyte and Nutrition: No nausea. Adequate po fluid intake. His electrolyte s are reviewed and are within acceptable limits. [...] in a peer support gr oup. --> changed back to xanax per patient preference - pt feels gives more rapid relief as he i s heading into stressful situations --> renewed xanax, d'c clonazepam --> discussed referral to psychiatry - he is hesitant --> referral to [facility] and discussed with Kezia Stokes who will contact pt to assist wi th getting him seen expeditiously --> pt provided with information for [employer] to establish peer support and AYA support gasper up resources available at [facility] 7. Musculoskeletal: Pt reports low back pain which has developed over the last 3-4 weeks. Pain increased with activity, no neurologic symptoms associated with pain. Trialed acetami nophen, ibuprofen without relief - continues to problematic, some relief with oxycodone. --> Xray bilateral hips to eval for osteonecrosis --> continue stretching --> may benefit from PT referral 8. Follow up --> once weekly labs and infusions --> return to clinic for provider visit qow --> BMBx for end of treatment already scheduled --> f/u with me to discuss results after marrow Yari Garcia MD, MS Harvest Supervisorresearch fellow [facility] [address] [place] [address] documented in this enc ounter Plan of [...] 2019 | Visit | Malignancy | [address] [facility] | | | | | | [address] | | | | | | [place], [place] | | | | | | [address] | | | | | | [phone] | | | | | | | | +--------+---------+ + + + documented as of this encounter Results X-RAY HIPS BILAT 2 VIEWS WITH AP PELVIS (03/30/2016 11:22 AM PDT) + + + + + + | Component | Value | Ref Range | Performed | Pathologist | | | | | At | Signature | + + + + + + | HIPS BILAT | STUDY: HIPS BILAT 2 | | | | | 2 VIEWS W | VIEWS W AP PELV 03/30/16 | | | | | AP PELV | 11:22:00 HISTORY: Iliac | | | | | | crest pain. History | | | | | | of bone marrow | | | | | | transplant and steroids. | | | | | | COMPARISON: None. | | | | | | FINDINGS:Minimal | | | | | | narrowing and spurring | | | | | | are noted in both hips, | | | | | | with a small | | | | | | leftacetabular roof | | | | | | degenerative subchondral | | | | | | cyst. There is no | | | | | | fracture,malalignment, | | | | | | or focal osseous | | | | | | destruction. No focal | | | | | | sclerosis is seen | | | | | | tosuggest osteonecrosis. | | | | | | The pubic symphysis | | | | | | and sacroiliac joints | | | | | | aremaintained. | | | | | | IMPRESSION: Normal iliac | | | | | | crests. Minimal | | | | | | degenerative changes of | | | | | | both hips. Attending | | | | | | Radiologists: FAINA OLIVAS, | | | | | | MDAuthor: FAINA OLIVAS MD | | | | | | I personally reviewed | | | | | | the images and, if | | | | | | necessary, edited the | | | | | | report. I agreewith the | | | | | | report as now presented. | | | | | | | | | | | | Final/Electronically | | | | | | signed / FAINA OLIVAS | | | | | | 03/30/2016 11:33 AM | | | | + + + + + + + + | Specimen | + + | | + + + +---------+ + + | Performing | Address | City/State/Zipcode | Phone Number | | Organization | | | | + +---------+ + + | [facility] DEPARTMENT OF | | | | | RADIOLOGY | | | | + +---------+ + + documented in this encounter Visit Diagnoses + + | Diagnosis | + + | Acute myeloid leukemia (AML), M4 (HCC)- primary induction failure - Primary | + + documented in this encounter"
--- OUTSIDE RECORDS SUMMARY | ~2019-05-17 | XMS | Encounter Summary ---
Demographics + + + | Address | [address] | | | [place] [address] | + + + | Home Phone [...] Team Providers + +------+ + | Care Hair Boiler Name | Role | Phone | + +------+ + | Zayda Hinton | PCP | | + +------+ + Encounter Details +--------+ + + + + | Date | Type | Department | Care Team | Description | +--------+ + + + + | 03/15/ | Pharmacy | Specialty Pharmacy | | | | 2015 | Visit | Services [address] | | | | | [address] | | | | | | [place], [place] | | | | | | [address] | | | | | | [phone] | | | +--------+ + + + [...] Rd | | | | | | [place], [place] | | | | | | [address] | | | | | | [phone] | | | | | | | | +--------+---------+ + + + documented as of this encounter Visit Diagnoses Not on filedocumented in this encounter"
--- OUTSIDE RECORDS SUMMARY | ~2019-05-17 | XMS | Encounter Summary ---
Demographics + + + | Address | [address] | | | [place] [address] | + + + | Home Phone | | + + + | Preferred Language | Unknown | + + + | Marital Status | | + + + | Zoroastrian Affiliation | SPI | + + + [...] Team Providers + +------+ + | Care Carton Catcher Name | Role | Phone | + +------+ + | Pending Pcp Addition | PCP | Unavailable | + +------+ + Reason for Visit + + + | Reason | Comments | + + + | Schedule labs | Trifusion | + + + | Dressing change | Trifusion | + + + | Follow-up visit | Em Saunders PA-C | + + + Office Visit - E/M Services (Routine) +--------+---------+ + + + + | Status | Reason | Specialty | Diagnoses / | Referred By | Referred To | | | | | Procedures | Contact | Contact | +--------+---------+ + + + + | Closed | Other | Hematology | Diagnoses | Cook, | Michelle Faculty | | | | Malignancy | 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, | [address] | [address] | | | | | not having | [address] | Mailcode: | | | | | achieved | [place], [place] | [id number] | | | | | remission | [address] | [place] | | | | | | Phone: | [facility]ilion | | | | | Procedures | [phone] | [place], [place] | | | | | Post BMT | Fax: | [address] | | | | | Auth to | [phone] | Phone: | | | | | included | | [phone] | | | | | facility, | | Fax: | | | | | diagnostics, | | [phone] | | | | | office | | | | | | | visits and | | | | | | | surgery | | | +--------+---------+ + + + + Encounter Details +--------+ + + + + | Date | Type | Department | Care Team | Description | +--------+ + + + + | 10/13/ | Clinical | Center for | | Schedule labs | | 2016 | Support | Hematologic | | (Trifusion); | | | Staff | Malignancies at [facility] | | Dressing change | | | | [address] | | (Trifusion); | | | | [address] Mailcode: | | Follow-up visit | | | | [facility] | | (Em Saunders PA-C) | | | | [place], | | | | | | [place] [address] | | | | | | [phone] | | | +--------+ + + + [...] documented as of this encounter Progress Notes Pricilla Guy RN - 10/14/2015 11:09 AM PDTINFUSION/TRANSFUSION NURSING NOTE Name: Khurram Kelly Date: 10/14/2015 Provider: Yari Garcia MD/ Em Saunders PA-C Subjective: Patient arrived to clinic ambulatory with spouse. 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 Patient reports feeling well. States he was having some abdominal discomfort the last week or so but he thinks it is dairy related. Reports stopping having dairy and is feeling better . Patient denies any fevers, nausea, vomiting, diarrhea, constipation, cough, sob, bleeding/ bruising, edema and neuropathy. Patient here today for labs, OV, and possible infusion. Past illnesses: Khurram has a past medical [...] scheduled for provider visit today with Em Saunders PA-C. Dressing change: Trifusion intact to left anterior chest wall without erythema or induration. Dressing petra lilly, skin intact without s/s exit site or tunnel infection. Using a Central Line Dressing C hange kit, site cleansed with Chloraprep. Skin prep applied prior to dressing application. Biopatch applied with Tegaderm dressing. Positive pressure valves changed to each port. All lumens pulse flushed with 5 mL of 10 units/mL Heparin. Patient tolerated procedure witho ut difficulty. Post-procedure pain level: 0 Patient requires no supportive measures today. Patient has no complaints at this time and r eports feeling well. Khurram is to be seen next in clinic on 10/18/15 or sooner if needed. Discharged ambulatory with spouse and instructed to check out at front end web designer when leaving. Pricilla Guy, RN documented in this encounter [...] 2019 | Visit | Malignancy | [address] | | | | | | [facility] | | | | | | [place], [place] | | | | | | [address] | | | | | | [phone] | | | | | | | | +--------+---------+ + + + documented as of this encounter Procedures + +--------+ + + + | Procedure Name | Priori | Date/Time | Associated Diagnosis | Comments | | | ty | | | | + +--------+ + + + | TREATMENT PARAMETERS | Routin | 10/14/2015 | 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 | 11:20 AM | leukemia (AML), 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 | | | | | | induction failure | | + +--------+ + + + | TREATMENT PARAMETERS | Routin | 10/14/2015 | 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 | 11:20 AM | leukemia (AML), 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 | | | | | | induction failure | | + +--------+ + + + | TREATMENT PARAMETERS | Routin | 10/14/2015 | 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 | 11:20 AM | leukemia (AML), 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 | | | | | | induction failure | | + +--------+ + + + | TREATMENT PARAMETERS | Routin | 10/14/2015 | 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 | 11:20 AM | leukemia (AML), 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 | | | | | | induction failure | | + +--------+ + + + | TREATMENT PARAMETERS | Routin | 10/14/2015 | 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 | 11:20 AM | leukemia (AML), 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 | | | | | | induction failure | | + +--------+ + + + | NURSING | Routin | 10/14/2015 | Acute myeloid | | | COMMUNICATION #3 - | e | 11:20 AM | leukemia (AML), M4 | | | [facility] | | PDT | ([facility])- primary | | | | | | induction failure | | + +--------+ + + + | NURSING | Routin | 10/14/2015 | Acute myeloid | | | COMMUNICATION #2 - | e | 11:20 AM | leukemia (AML), M4 | | | [facility] | | PDT | ([facility])- primary | | | | | | induction failure | | + +--------+ + + + | NURSING | Routin | 10/14/2015 | Acute myeloid | | | COMMUNICATION #1 - | e | 11:20 AM | leukemia (AML), M4 | | | [facility] | | PDT | ([facility])- primary | | | | | | induction failure | | + +--------+ + + + | TREATMENT PARAMETERS | Routin | 10/14/2015 | Acute myeloid | | | #1 - [facility] | e | 11:20 AM | leukemia (AML), M4 | | | | | PDT | ([facility])- primary | | | | | | induction failure | | + +--------+ + + + | TREATMENT PARAMETERS | Routin | 10/14/2015 | Acute myeloid | | | #1 - [facility] | e | 11:20 AM | leukemia (AML), M4 | | | | | PDT | ([facility])- primary | | | | | | induction failure | | + +--------+ + + + | BMP + MAG, POC CHM | Urgent | 10/14/2015 | Acute myeloid | Results for this | | | | 11:03 AM | leukemia (AML), M4 | procedure are in the | | | | PDT | ([facility])- primary | results section. 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 | | | | | | (HCC) | | + +--------+ + + + | CBC+DIFF,POC | Urgent | 10/14/2015 | Acute myeloid | Results for this | | | | 11:01 AM | leukemia (AML), M4 | procedure are in the | | | | PDT | ([facility])- primary | results section. 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 | | | | | | (HCC) | | + +--------+ + + + | LIVER SET | Urgent | 10/14/2015 | Acute myeloid | Results for this | | (AST,ALT,BILI | | 10:52 AM | leukemia (AML), M4 | procedure are in the | | TOTAL,BILI | | PDT | ([facility])- primary | results section. | | DIRECT,ALK | | | induction failure | | | PHOS,ALB,PROT TOTAL) | | | S/P allogeneic bone | | | | | | marrow transplant | | | | | | (HCC) | | + +--------+ + + + | TACROLIMUS, WHOLE | Urgent | 10/14/2015 | Acute myeloid | Results for this | | BLOOD | | 10:52 AM | leukemia (AML), M4 | procedure are in the | | | | PDT | ([facility])- primary | results section. 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 | | | | | | (HCC) | | + +--------+ + + + | PHOSPHORUS, PLASMA | Urgent | 10/14/2015 | Acute myeloid | Results for this | | | | 10:52 AM | leukemia (AML), M4 | procedure are in the | | | | PDT | ([facility])- primary | results section. 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 | | | | | | ([facility]) | | + +--------+ + + [...] [facility] | [address] | [place], [place] | | | [facility] | [address] | [address] | | | TESTS | | | [...] | | | | | 10*3/uL | MARNETTIEAM | | [...] | | POC | | 10*3/uL | ABELARDOAM | | [...] | | | COMMENT, | | | [facility] | | | [...] [facility] | [address] | [place], [place] | | | [facility] | [address] | [address] | | | TESTS | | | [...] [facility] | [address] | [place] [address] | | | SERVICES, SPECIAL | PARK [...] | + + + + + | [facility] | [address] | [place] [address] | | | SERVICES, CORE | WALLY [...] [facility] | [address] | [place] [address] | | | SERVICES, CORE | PARK [...] 10 unit/mL IV flush | Given | 10/14/19 | 50 Units | | | | syringe 50 Units 50 Units, | | 16 11:33 | | | | | Intracatheter, NEEDED, | | AM PDT | | | | | Starting Lupe 10/14/15 at 1117, | | | | | | | Until Sun10/15/15 at 0020, line | | | | | | | patency | | | | | | + +--------+ + +------+------+ +---+---+ | | | +---+---+ documented in this encounter"
--- OUTSIDE RECORDS SUMMARY | ~2019-05-17 | XMS | Encounter Summary ---
Demographics + + + | Address | [address] | | | [place] [address] | + + + | Home Phone [...] Team Providers + +------+ + | Care 1St Pressman On Web Press Name | Role | Phone | + +------+ + | Pending Pcp Addition | PCP | Unavailable | + +------+ + Encounter Details +--------+ + + + + | Date | Type | Department | Care Team | Description | +--------+ + + + + | 08/16/ | Document-Sc | UNKNOWN DEPARTMENT | Unknown . | | | 2016 | anned | [address] | | | | | [address] | | | | | | [place], [place] | | | | | | [address] | | | +--------+ + + + [...] 2019 | Visit | Malignancy | [address] [facility] | | | | | | [address] | | | | | | [place] | | | | | | [address] | | | | | | [phone] | | | | | | | | +--------+---------+ + + + documented as of this encounter Visit Diagnoses Not on filedocumented in this encounter"
--- OUTSIDE RECORDS SUMMARY | ~2019-05-17 | XMS | Encounter Summary ---
Demographics + + + | Address | [address] | | | [place] [address] | + + + | Home Phone | | + + + | Preferred Language | Unknown | + + + | Marital Status | | + + + | Jainism Affiliation | SPI | + + + | Race | White | + + + | Ethnic Group | Not or | + + + Author + + + | Author | [facility] | + + + | Organization | [facility] | + + + | Address | Unknown | + + + | Phone | Unavailable | + + + Support + + +---------+ + | Name | Relationship | Address | Phone | + + +---------+ + | Gabriel Kelly | ECON | Unknown | | + + +---------+ + Care Team Providers + +------+ + | Care Roll Icer Machine Name | Role | Phone | + +------+ + | Pending Pcp Addition | PCP | Unavailable | + +------+ + Reason for Visit + + + | Reason | Comments | + + + | Nausea | | + + + | Refill Request | ondansetron | + + + Encounter Details +--------+ + + + + | Date | Type | Department | Care Team | Description | +--------+ + + + + | 07/31/ | Telephone | Center for | [place], [place] | Nausea; Refill | | 2017 | | Hematologic | [address] [facility] | Request | | | | Malignancies at | [address] | (ondansetron) | | | | [facility] | [place], [place] | | | | | [address] [facility] | [address] | | | | | Debi Mailcode: | [phone] | | | | | [id number] [place] | | | | | | [facility] [place], | | | | | | [place] [address] | | | | | | [phone] | | | +--------+ + + + [...] [place] | | | | | | [address] | | | | | | [phone] | | | | | | | | +--------+---------+ + + + documented as of this encounter Visit Diagnoses Not on filedocumented in this encounter"
--- OUTSIDE RECORDS SUMMARY | ~2019-05-17 | XMS | Encounter Summary ---
Demographics + + + | Address | [address] | | | [place] [address] | + + + | Home Phone [...] Team Providers + +------+ + | Care Restorative Care Technician Name | Role | Phone | + +------+ + | Zayda Hinton | PCP | | + +------+ + Encounter Details +--------+ + + + + | Date | Type | Department | Care Team | Description | +--------+ + + + + | 09/01/ | Pharmacy | Specialty Pharmacy | | | | 2016 | Visit | Services [address] | | | | | | [address] | | | | | | [place], [place] | | | | | | [address] | | | | | | [phone] | | | +--------+ + + + [...] | | | | | | [place], [place] | | | | | | [address] | | | | | | [phone] | | | | | | | | +--------+---------+ + + + documented as of this encounter Visit Diagnoses Not on filedocumented in this encounter"
--- OUTSIDE RECORDS SUMMARY | ~2019-05-17 | XMS | Encounter Summary ---
Demographics + + + | Address | [address] | | | [place] [address] | + + + | Home Phone [...] Team Providers + +------+ + | Care Travel Trailer Components Assembler Name | Role | Phone | [...] | | | ic leukemia, | [address] | | | | | not having | [address] | Mailcode: | | | | | achieved | [place], [place] | [id number] | | | | | remission | [address] | [place] | | | | | | Phone: | [facility]ilion | | | | | | [phone] | [place], [place] | | | | | | Fax: | [address] | | | | | | [phone] | Phone: | | | | | | | [phone] | | | | | | | Fax: | | | | | | | [phone] | +--------+---------+ + + + + Encounter Details +--------+---------+ + + + | Date | Type | Department | Care Team | Description | +--------+---------+ + + + | 10/25/ | Office | Center for | Aspen Cummins FNP | S/P allogeneic bone | | 2018 | Visit | Hematologic | [address] [facility] | marrow transplant | | | | Malignancies at | [address] | (HCC) (Primary Dx) | | | | [facility] | [place], [place] | | | | | [address] | [address] | | | | | [address] Mailcode: | [phone] | | | | | [facility] | | | | | | [facility]ilion [place], | | | | | | [place] [address] | | | | | | [phone] | | | +--------+---------+ + + + [...] + + + | Blood Pressure | 136/64 | 10/25/2017 12:07 PM | | | | | PDT | | + + + + + | Pulse | 71 | 10/25/2017 12:07 PM | | | | | PDT | | + + + + + | Temperature | 36.7 C (98.1 F) | 10/25/2017 12:07 PM | | | | | PDT | | + + + + + | Respiratory Rate | 16 | 10/25/2017 12:07 PM | | | | | PDT | | + + + + + | Oxygen Saturation | 100% | 10/25/2017 12:07 PM | | | | | PDT | | + + + + + | Inhaled Oxygen | - | - | | | Concentration | | | | + + + + + | Weight | 73.2 kg (161 lb 6 | 10/25/2017 12:07 PM | | | | oz) | PDT | | + + + + + | Height | 188 cm (6' 2.02") | 10/25/2017 12:07 PM | | | | | PDT | | + + + + + | Body Mass Index | 20.71 | 10/25/2017 12:07 PM | | | | | PDT | | + + + + + documented in this encounter Progress Notes Aspen Cummins FNP - 10/25/2017 12:35 PM PDT 10/25/2017 [facility] MD: Yari Garcia MD Primary Oncologist: Yari Garcia MD Diagnosis: AMML, primary refractory Transplant Date: 08/27/15 Donor: MMURD (DPB1 permissive antigen mismatch, male, [id number]) Identifying Data: Khurram Kelly is a 27 y.o. CM with a PMH of pericarditis [...] L ankle. He was evaluated at [facility] ED on 06/[address] angiogram negative [...] myelomonocytic leukemia. He was referred to [facility] for further evaluation and man agement of his newly dx'd AML. Pt was admitted to [facility] on 05/26/15. Peripheral blood was sent [...] CD34, variable CD56, variable CD117, and dim [id number]-lgmbm mickey; promonocyte immunophenotype (70% by flow): CD11b, [...] L total hip arthroplasty. He is currently 2 years, 2 monthss/p transplant, s/p 6 cyclesof azacitidine and returns to clinic today for scheduled follow-up. Interim History: Khurram was most recently evaluated in our [facility] by Yari Garcia MD on 09/17/17. Feeling well today aside from anxiety re: CBC r esults. States he always has a hard time when he comes in for labs for fear of relapse. Sto pped taking xanax ~2 weeks ago. Now using Riky Bustillo oil and marijuana tinctures to contr ol his anxiety. Feels this has helped a lot. Denies smoking marijuana or ingesting edibles. Notes ongoing dry eye with mild wind intolerance, photophobia. Denies c/o oral sensitivity, difficulty swallowing, N/V, SOB/ROJAS or skin changes. Notes looser stools, gassy over the la st few days. Doesn't feel the same as his GvHD did. 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 Feels good during the day but very fatigued after a 10 hour shift. Sleeping well at night, active around the house. Review of Systems Constitutional: Negative for chills, fever and malaise/fatigue. HENT: Negative for headaches, congestion and sore throat. Respiratory: Negative for cough and shortness of breath. Cardiovascular: Negative for chest pain and leg swelling. Gastrointestinal: Negative for abdominal pain, diarrhea, nausea and vomiting. Genitourinary: Negative for dysuria. Musculoskeletal: Positive for joint pain (R hip, chronic pain). Negative for falls and myal gias. Skin: Negative for rash. Neurological: Negative for [...] tablet by mouth as needed. Indications: anxiety mycophenolate delayed release 360 mg oral tablet,delayed release (DR/EC) Take 2 tablets by mouth two times daily. Indications: gvhd No current facility-administered medications for this visit. No Known Allergies Filed Vitals: 10/25/2017 12:07 PM Height: 1.88 m (6' 2.02") Weight: 73.2 kg (161 lb 6 oz) BP: 136/64 Pulse: 71 Temp: 36.7 C (98.1 F) TempSrc: Oral Resp: 16 SpO2: 100% PainSc: 02 - Mild PainLoc: Back (Upper) BMI: 20.71 kg/(m^2) Physical Exam Constitutional: He is well-developed, [...] reviewed. Lab Results Component Value Date WBC 9.6 10/25/2017 HB 14.4 10/25/2017 HCT 43.8 10/25/2017 PLT 281 10/25/2017 MCV 93.4 10/25/2017 RDW 44.2 07/19/2017 Lab Results Component Value Date BICARB 27 10/25/2017 TBILI 0.5 10/25/2017 CA 9.5 10/25/2017 CL 100 10/25/2017 CR 0.9 10/25/2017 GLU 105 (H) 10/25/2017 AP 84 10/25/2017 TP 7.5 10/25/2017 BUN 7 10/25/2017 ALB 3.9 10/25/2017 AST 34 10/25/2017 NA 136 10/25/2017 K 4.1 10/25/2017 ALT 29 10/25/2017 Assessment/Plan: 1. 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 His peripheral blood counts remain WNL. He has no evidence of disease by peripheral smear. --> decrease CBC to q8 weeks and prn 2. 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 He initially responded but flared during taper. He also developed low-level nausea and abd discomfort concerning for GvHD, emp irically treated with oral non-absorbables with resolution. - He had tapered prednisone to 10 mg po daily when he developed a rash for which he was see n in the ED in [place] in late 01/21. Prednisone was increased back [...] of FLORESITA aside from slightly increased RV -TODAY: Continues with findings of mild dry eye, photophobia and wind intolerance. Maryann nuesMMF ER BID, prednisone 5 mg po every other day. No other s/s active GvHD. -->d/c prednisone --> if pt continues without evidence of GvHD, anticipate initiation of MMF taper next visit --> continue to avoid hepatotoxins (Tylenol, EtOH) --> continue to monitor for s/s active GvHD every visit --> additional PFTs prn symptoms Ped Pre Spirometry Latest Ref Rng & Units 09/17/2017 05/24/2017 09/01/2016 08/09/2015 FVC PRE 6.11 L 7.04 7.23 6.71 6.98 FVC PRE (%REF) % 115 116 106 110 FEV1 PRE 4.98 L 5.48 5.50 5.28 5.13 FEV1 PRE (%REF) % 110 108 102 99 FEV1/FVC PRE 82 % 78 76 79 73 FEV1/FVC PRE (%REF) % 94 91 94 88 XIB01-11% PRE 4.94 L/sec 4.92 4.74 4.64 4.12 IOT26-78% PRE (%REF) % 99 94 91 79 PEF PRE 11.02 L/sec 10.55 9.77 11.12 8.89 PEF PRE (%REF) % 95 87 98 79 3. Infectious Disease: Remains afebrile without localizing s/s infection. Continues acyc lovir alone for post-transplant prophylaxis. His most recent immune reconstitution panel col lected 07/19/17 showed normal total T, B, NK cells. CD4 count 324. Post-transplant vaccine s up-to-date save MMR and PPSV23; pt is ineligible for those vaccines while he remains on IS T. Received annual inactivated influenza vaccine on 05/24/17. --> continue acyclovir until off all IST --> hold MMR and PPSV23 until pt off all IST x 1 year, then re-evaluate immune status --> counseled not to smoke pot (or anything else) 4. Fluid, Electrolyte and Nutrition: Appetite is good. Feels he's eating well; agr ees. Adequate po fluid intake reported. Weight has been stable over the last few months. Hi s electrolytes are reviewed and are within acceptable limits. --> continue a well balanced diet including between meal snacks for extra calories -->maintain adequate hydration 5. Musculoskeletal: Hx of intermittent L hip pain. MRI 07/25/16 showed bilateral femoral hea d osteonecrosis with subchondral fracture and collapse of weightbearing L femoral head with suspected early cartilage disease. Underwent a total L hip arthroplasty on 09/07/16, pain reso lved. Developed severe R hip pain. Evaluated by Dr. Jeffers on 04/02/17; per pt report, aristides herrerat there may be a hairline fracture causing his pain. Pain initially resolved without addit ional intervention, but pain recurring with ambulation. No longer requiring analgesics. Plan jayna for hip replacement mid-summer when his is out of school -->continue to f/up with Dr. Jeffers per his recommendations 6. Psychosocial: Hx anxiety. Generally well controlled but flares when he's scheduled f or medical f/up. Currently taking xanax 0.5 mg po prn, using RSO and marijuana tinctures. --> tinctures and oils ok but again encouraged pt to avoid smoking or edibles -->continue xanax 0.5 mg po prn, refilled today #30 7. Anniversary testing: Completed 07/19/17 as below. --> TSH 1.25; continue annually --> ferritin 1049, downtrending; no additional testing indicated providing pt does not requ agustina pRBC transfusions --> vitamin D 30.6; continue vitD 2000 units po daily; repeat vitD 25OH annually --> hgb A1c 5.9 [08/20/17]; concerning for pre-diabetes; repeat in 02/23 --> lipids as below [09/17/17]; repeat annually Component 09/17/2017 CHOLESTEROL (LAB) 192 TRIGLYCERIDES 73 HDL CHOLESTEROL 51 LDL CHOLEST 126 (H) VLDL CHOLESTEROL 15 NON-HDL CHOLESTEROL 141 (H) 8. Follow up -->RTC to f/up with me in 8 week, sooner prn [facility] [address] [facility] Mailcode: [id number] [address] documented in this enc ounter [...] 2018 | Visit | Malignancy | [address] [facility] | | | | | | [facility] | | | | | | [place], [place] | | | | | | [address] | | | | | | [phone] | | | | | | | | +--------+---------+ + + + documented as of this encounter Visit Diagnoses + + | Diagnosis | + + | 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HCC) - Primary Bone marrow replaced by | | transplant | + + documented in this encounter
--- OUTSIDE RECORDS SUMMARY | ~2019-05-17 | XMS | Encounter Summary ---
Demographics + + + | Address | [address] | | | [place] [address] | + + + | Home Phone [...] Team Providers + +------+ + | Care Electrode Cleaning Machine Operator Name | Role | Phone | + +------+ + | Pending Pcp Addition | PCP | Unavailable | + +------+ + Reason for Visit + + + | Reason | Comments | + + + | Dressing change | Neostar | + + + | Lab Draw [...] | | | | | | | [address] | | | | | | | [place] [address] | | | | | | | [place], | | | | | | | [place] | | | | | | | [address] | | | | | | | Phone: | | | | | | | [phone] | | | | | | | Fax: | | | | | | | [phone] | +--------+--------+ + + + + Encounter Details +--------+ + + + + | Date | Type | Department | Care Team | Description | +--------+ + + + + | 12/12/ | Clinical | [facility] for | | Dressing change | | 2016 | Support | Hematologic | | (Neostar); Lab Draw | | | Staff | [facility] | | | | | | [address] | | | | | | [place] Mailcode: | | | | | | [id number] | | | | | | [place], | | | | | | [place] [address] | | | | | | [phone] | | | +--------+ + + + [...] + | Blood Pressure | 125/83 | 12/13/2015 3:29 PM | | | | | PDT | | + + + + + | Pulse | 79 | 12/13/2015 3:29 PM | | | | | PDT | | + + + + + | Temperature | 37 C (98.6 F) | 12/13/2015 3:29 PM | | | | | PDT | | + + + + + | Respiratory Rate | 14 | 12/13/2015 3:29 PM | | | | | PDT | | + + + + + | Oxygen Saturation | 99% | 12/13/2015 3:29 PM | | | | | PDT | | + + + + + | Inhaled Oxygen | - | - | | | Concentration | | | | + + + + + | Weight | 87 kg (191 lb 12.8 | 12/13/2015 3:29 PM | | | | oz) | PDT | | + + + + + | Height | - | - | | + + + + + | Body Mass Index | 24.79 | 08/18/2015 4:35 PM | | | | | PST | | + + + + + documented in this encounter Progress Notes Marie Peres RN - 12/13/2015 7:21 PM PDTPatient ambulated into clinic with for carson eduled labs and dressing change. He reports to be feeling well today. Denies fever, chills, chest pain, SOB, n/v/d, bleeding, bruising and rash. He states he is eating adequately and d rinking 2L of fluid daily. VAD Lab Draw: Neostar accessed per protocol. Good blood return noted. Appropriate waste discarded. Lab s drawn and sent. Neostar pulse flushed with 20 mL NS. Neostar intact to left anterior chest wall [...] mL NS. Patient tolerated procedure without difficulty. No supportive care indicated. Patient discharged ambulatory from clinic. documented in this enc ounter Plan of [...] [place] | | | | | | [address] | | | | | | [phone] | | | | | | | | +--------+---------+ + + + + + +--------+ + + | Name | Type | Priori | Associated Diagnoses | Order Schedule | | | | ty | | | + + +--------+ + + | BMP + MAG, POC CHM | Lab - Point | Routin | S/P allogeneic | Ordered: 12/13/2015 | | | of Care | e | bone marrow | | | | Interface | | transplant (HCC) | 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 | | + + +--------+ + + documented as of this encounter Procedures + +--------+ + + + | Procedure Name | Priori | Date/Time | Associated Diagnosis | Comments | | | ty | | | | + +--------+ + + + | CBC+DIFF,POC | Routin | 12/13/2015 | S/P allogeneic | Results for this | | | e | 3:58 PM | bone marrow | procedure are [...] + + | BASIC METABOLIC SET | Urgent | 12/13/2015 | S/P allogeneic | Results for this | | (NA, K, CL, TCO2, | | 3:50 PM | bone marrow | procedure are in the | | BUN, CR, GLU, CA) | | PDT | transplant (HCC) | results section. 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 | | + +--------+ + + + | MAGNESIUM, PLASMA | Urgent | 12/13/2015 | S/P allogeneic | Results for this | | | | 3:50 PM | bone marrow | procedure are [...] + + | LDH TOTAL, PLASMA | Urgent | 12/13/2015 | S/P allogeneic | Results for this | | | | 3:50 PM | bone marrow | procedure are in the | | | | PDT | transplant ([facility]) | results section. 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[facility])- primary | | | | | | induction failure | | + +--------+ + + + | CMV PCR | Routin | 12/13/2015 | Acute myeloid | Results for this | | QUANTITATION, PLASMA | e | 3:42 PM | leukemia (AML), M4 | procedure are in the | | | | PDT | ([facility])- primary | results section. | | | | | induction failure | | | | | | Immunocompromised | | | | | | state associated | | | | | | with stem cell | | | | | | transplant ([facility]) | | | | | | CMV (cytomegalovirus | | | | | | infection) status | | | | | | unknown (HCC) | | + +--------+ + + + | LIVER SET | Urgent | 12/13/2015 | S/P allogeneic | Results for this | | (AST,ALT,BILI | | 3:42 PM | bone marrow | procedure are in the | | TOTAL,BILI | | PDT | transplant ([facility]) | results section. | | DIRECT,ALK | | | Acute myeloid | | | PHOS,ALB,PROT TOTAL) | | | leukemia (AML), M4 | | | | | | ([facility])- primary | | | | | | induction failure | | + +--------+ + + + | IGG, SERUM | Routin | 12/13/2015 | S/P allogeneic | Results for this | | | e | 3:42 PM | bone marrow | procedure are in the | | | | PDT | transplant ([facility]) | results section. 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[facility])- primary | | | | | | induction failure | | + +--------+ + + + | TREATMENT PARAMETERS | Routin | 12/13/2015 | 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 | 3:41 PM | leukemia (AML), M4 | | | | | PDT | ([facility])- primary | | | | | | induction failure | | + +--------+ + + + | TREATMENT PARAMETERS | Routin | 12/13/2015 | 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 | 3:41 PM | leukemia (AML), 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 | | | | | | induction failure | | + +--------+ + + + | TREATMENT PARAMETERS | Routin | 12/13/2015 | 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 | 3:41 PM | leukemia (AML), M4 | | | | | PDT | ([facility])- primary | | | | | | induction failure | | + +--------+ + + + | TREATMENT PARAMETERS | Routin | 12/13/2015 | 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 | 3:41 PM | leukemia (AML), 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 | | | | | | induction failure | | + +--------+ + + + | TREATMENT PARAMETERS | Routin | 12/13/2015 | 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 | 3:41 PM | leukemia (AML), 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 | | | | | | induction failure | | + +--------+ + + + | NURSING | Routin | 12/13/2015 | S/P allogeneic | | | COMMUNICATION #5 - | e | 3:41 PM | bone marrow | | | [place] | | PDT | transplant (HCC) | 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[facility])- primary | | | | | | induction failure | | + +--------+ + + + | NURSING | Routin | 12/13/2015 | S/P allogeneic | | | COMMUNICATION #4 - | e | 3:41 PM | bone marrow | | | [place] | | PDT | transplant (HCC) | 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[facility])- primary | | | | | | induction failure | | + +--------+ + + + | NURSING | Routin | 12/13/2015 | S/P allogeneic | | | COMMUNICATION #3 - | e | 3:41 PM | bone marrow | | | [place] | | PDT | transplant (HCC) | 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[facility])- primary | | | | | | induction failure | | + +--------+ + + + | NURSING | Routin | 12/13/2015 | S/P allogeneic | | | COMMUNICATION #3 - | e | 3:41 PM | bone marrow | | | [facility] | | PDT | transplant (HCC) | 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 | | + +--------+ + + + | NURSING | Routin | 12/13/2015 | S/P allogeneic | | | COMMUNICATION #2 - | e | 3:41 PM | bone marrow | | | [place] | | PDT | transplant (HCC) | 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 | | + +--------+ + + + | NURSING | Routin | 12/13/2015 | S/P allogeneic | | | COMMUNICATION #2 - | e | 3:41 PM | bone marrow | | | [place] | | PDT | transplant (HCC) | 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 | | + +--------+ + + + | NURSING | Routin | 12/13/2015 | S/P allogeneic | | | COMMUNICATION #1 - | e | 3:41 PM | bone marrow | | | [place] | | PDT | transplant (HCC) | 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 | | + +--------+ + + + | NURSING | Routin | 12/13/2015 | S/P allogeneic | | | COMMUNICATION #1 - | e | 3:41 PM | bone marrow | | | [place] | | PDT | transplant (HCC) | 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 | | + +--------+ + + + | TREATMENT PARAMETERS | Routin | 12/13/2015 | S/P allogeneic | | | #1 - [place] | e | 3:41 PM | bone marrow | | | | | PDT | transplant (HCC) | 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 | | + +--------+ + + + | TREATMENT PARAMETERS | Routin | 12/13/2015 | S/P allogeneic | | | #1 - [place] | e | 3:41 PM | bone marrow | | | | | PDT | transplant (HCC) | 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 | | + +--------+ + + + | TREATMENT PARAMETERS | Routin | 12/13/2015 | S/P allogeneic | | | #1 - [place] | e | 3:41 PM | bone marrow | | | | | PDT | transplant (HCC) | 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 | | + +--------+ + + + documented in this encounter Results CBC+DIFF,POC (12/13/2015 3:58 PM PDT) + + + + + [...] + + + | RBC POC | 3.50 (L) | 4.50 - 6.00 | [facility] [...] | | | | | g/dL | [place] | | | | | | [facility] | | | | | | OF CARE | | | | | | TESTS | | + + + + + + | HCT POC | 35.3 (L) | 41.0 - 53.0 % | [facility] | | | | | | [place] | | | | | | [facility] | | | | | | OF CARE | | | | | | TESTS | | + + + + + + | MCV POC | 100.9 (H) | 80.0 - 96.0 fL | [...] + + + | MCHC POC | 36.0 | 33.0 - 35.5 | [facility] - | | | | | g/dL | [place] | | | | | | [facility] | | | | | | OF CARE | | | | | | TESTS | | + + + + + + | RDW SD, POC | 55.6 (H) | 35.1 - 46.3 fL | [facility] | | | | | | [place] | | | | | | [facility] | | | | | | OF CARE | | | | | | TESTS | | + + + + + + | PLT POC | 27 (L) | 150 - 400 | [facility] - | | | | | 10*3/uL | [place] | | | | | | [facility] | | | | | | OF CARE | | | | | | TESTS | | + + + + + + | MPV POC | 8.6 (L) | 9.7 - 12.3 fL | [facility] | | | | | | [place] | | | | | | [facility] | | | | | | OF CARE | | | | | | TESTS | | + + + + + + | NEUTROPHIL% | 73.0 (H) | 50.0 - 70.0 % | [facility] - | | | POC | | | [place] | | | | | | [facility] | | | | | | OF CARE | | | | | | TESTS | | + + + + + + | LYMPH% POC | 20.6 | 18 - 42 % | [facility] - | | | | | | [place] | | | | | | [facility] | | | | | | OF CARE | | | | | | TESTS | | + + + + + + | MONO %, POC | 5.7 | 3.5 - 9.0 % | [facility] | | | | | | [place] | | | | | | [facility], POINT | | | | | | OF CARE | | | | | | TESTS | | + + + + + + | EOS %, POC | 0.5 (L) | 1.0 - 3.0 % | [...] + + + | LYMPH# POC | 1.3 | 1.0 - 4.8 | [facility] - [...] + + + | CBC | Imm Gran, Left shift | | [facility] - | | | [...] + | [facility] | [address] | [place], [place] | | | RUTHIE CARTER OF CARE | [facility] | [address] | | | TESTS | | | | + + + + + LDH TOTAL, PLASMA (12/13/2015 3:50 PM PDT) + +---------+ + + + | Component | Value | Ref Range | Performed | Pathologist | | | | | At | Signature | + +---------+ + + + | LD TOTAL, | 282 (H) | <=250 U/L | [facility] | | [...] | + + + + + | [facility] | [address] | [place] [address] | | | SERVICES, CORE | [address] | | | + + + + + MAGNESIUM, PLASMA (12/13/2015 3:50 PM PDT) + +-------+ + + + | [...] [facility] | [address] | [place] [address] | | | SERVICES, CORE | [address] | | | + + + + + BASIC METABOLIC SET (NA, K, CL, TCO2, BUN, CR, GLU, CA) (12/13/2015 3:50 PM PDT) + +---------+ + + + | Component | Value | Ref Range | Performed | Pathologist | | | | | At | Signature | + +---------+ + + + | GLUCOSE, | 167 (H) | 60 - 99 mg/dL | [facility] | | | [facility]ASMA | | | LABORATORY | | | (LAB) | | | SERVICES, | | | | | | CORE | | + +---------+ + + + | BUN, PLASMA | 18 | 6 - 20 mg/dL [...] | | | LABORATORY | | | DOMINICAN | | | SERVICES, | | | [...] 4.4 | 3.4 - 5.0 | [facility] | [...] | + + + + + | [facility] | [address] | [place] [address] | | | SERVICES, CORE | [address] | | | + + + + + CMV PCR QUANTITATION, PLASMA (12/13/2015 3:42 PM PDT) + + + + + [...] 2 fold may not reflect true | [facility] | | biological changes and must [...] | | characteristics determined by the [facility] | | | Molecular Diagnostic Center. It has not been cleared or approved by | | | the Food and Drug Administration. FDA approval is not required for | | | clinical use of this test, and therefore validation was done as | | | required under the requirements of the Clinical Laboratory Improvement | | | Act of 1988. The [facility] | | | Diagnostic Center is a fully licensed and/or accredited clinical | | | laboratory under CLIA, CAP, and the [facility]. | | + + + + + + + + | Performing | Address | City/State[facility] | Phone Number | | Organization | | | | + + + + + | [facility] | [address] | [place] [address] | | | DIAGNOSTIC | [address] | | | | LABORATORIES | | | | + + + + + LIVER SET (AST,ALT,BILI TOTAL,BILI DIRECT,ALK PHOS,ALB,PROT TOTAL) (12/13/2015 3:42 PM PDT ) + +---------+ + + [...] + + + | ALK PHOS | 64 | 53 - 128 U/L | [facility] | | | | | | LABORATORY | | | | | | SERVICES, | | | | | | CORE | | + +---------+ + + + | AST(SGOT) | 47 (H) | <=41 U/L | [facility] | | | | | | LABORATORY | | | | | | SERVICES, | | | | | | CORE | | + +---------+ + + + | ALT (SGPT) | 130 (H) | <=60 U/L | [facility] | | | | | | LABORATORY | | | | | | SERVICES, | | | | | | CORE | | + +---------+ + + + | TOTAL | 7.0 | 6.4 - 8.2 g/dL | [facility] [...] | + + + + + | [facility] | [address] | [place] [address] | | | SERVICES, CORE | [address] | | | + + + + + IGG, SERUM (12/13/2015 3:42 PM PDT) + +---------+ + + + | Component | Value | Ref Range | Performed | Pathologist | | | | | At | Signature | + +---------+ + + + | IGG SERUM | 514 (L) | 700 - 1600 | [facility] [...] + | [facility] | [address] | [place] [address] | | | [place] | | | | + + + + + documented in this encounter Visit Diagnoses + + | Diagnosis | + + | 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
--- OUTSIDE RECORDS SUMMARY | ~2019-05-17 | XMS | Encounter Summary ---
Demographics + + + | Address | [address] | | | [place] [address] | + + + | Home Phone [...] Team Providers + +------+ + | Care Decision Science Analyst Name | Role | Phone | [...] [address] | | | | | | [place], [place] | | | | | | [address] | | | +--------+ + + + [...] 2019 | Visit | Malignancy | [address] [facility] | | | | | | [address] | | | | | | [place] | | | | | | [address] | | | | | | [phone] | | | | | | | | +--------+---------+ + + + documented as of this encounter Visit Diagnoses Not on filedocumented in this encounter"
--- OUTSIDE RECORDS SUMMARY | ~2019-05-17 | XMS | Encounter Summary ---
Demographics + + + | Address | [address] | | | [place] [address] | + + + | Home Phone [...] Team Providers + +------+ + | Care Head Operator Name | Role | Phone | [...] | | | | | remission | [address] | [place] | | | | | | Phone: | [facility] | | | | | | [phone] | [place], [place] | | | | | | Fax: | [address] | | | | | | [phone] | Phone: | | | | | | | [phone] | | | | | | | Fax: | | | | | | | [phone] | +--------+---------+ + + + + Encounter Details +--------+---------+ + + + | Date | Type | Department | Care Team | Description | +--------+---------+ + + + | 10/25/ | Office | Center for | Aspen Cummins FNP | S/P allogeneic bone | | 2018 | Visit | Hematologic | [address] [facility] [address] | marrow transplant | | | | Malignancies at | [address] | (HCC) (Primary Dx) | | | | [facility] | [place], [place] | | | | | [address] | [address] | | | | | [address] Mailcode: | [phone] | | | | | [id number] [place] | | | | | | [facility] [place], | | | | | | [place] [address] | | | | | | [phone] | | | +--------+---------+ + + + [...] Donor: MMURD (DPB1 permissive antigen mismatch, male, [id number]) Identifying Data: Khurram Kelly is a 27 [...] his L ankle. He was evaluated at [place]' ED on 06/[address] angiogram [...] acute myelomonocytic leukemia. He was referred to [facility] for further evaluation and man agement of his newly dx'd AML. Pt was admitted to [facility] on 05/26/15. Peripheral blood was sent for [...] CD34, variable CD56, variable CD117, and dim IV201-couyr mickey; promonocyte immunophenotype (70% by flow): CD11b, [...] CBC to q8 weeks and prn 2. 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 He initially responded but flared during taper. He also developed low-level nausea and abd discomfort concerning for GvHD, emp irically treated with oral non-absorbables with resolution. - He had tapered prednisone to 10 mg po daily when he developed a rash for which he was see n in the ED in [place] in late 01/21. Prednisone was increased back [...] PRE (%REF) % 94 91 94 88 RYX75-08% PRE 4.94 L/sec 4.92 4.74 4.64 4.12 NSD50-75% PRE (%REF) % 99 94 91 79 [...] [facility] [address] Mailcode: [place] [address] documented in this enc ounter [...] 2018 | Visit | Malignancy | [address] [facility] | | | | | | [facility] | | | | | | [place], [place] | | | | | | [address] | | | | | | [phone] | | | | | | | | +--------+---------+ + + + documented as of this encounter Visit Diagnoses + + | Diagnosis | + + | 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HCC) - Primary Bone marrow replaced by | | transplant | + + documented in this encounter
--- OUTSIDE RECORDS SUMMARY | ~2019-05-17 | XMS | Encounter Summary ---
Demographics + + + | Address | [address] | | | [place] [address] | + + + | Home Phone | | + + + | Preferred Language | Unknown | + + + | Marital Status | | + + + | Nondenominational Affiliation | SPI | + + + [...] Team Providers + +------+ + | Care Registered Radiographer Name | Role | Phone | + +------+ + | Zayda Hinton | PCP | | + +------+ + Encounter Details +--------+ + + + + | Date | Type | Department | Care Team | Description | +--------+ + + + + | 10/12/ | Pharmacy | Specialty Pharmacy | | | | 2016 | Visit | Services [address] | | | | | | [address] | | | | | | [place], [place] | | | | | | [address] | | | | | | [phone] | | | +--------+ + + + [...] 2019 | Visit | Malignancy | [address] [facility] | | | | | | [address] | | | | | | [place], [place] | | | | | | [address] | | | | | | [phone] | | | | | | | | +--------+---------+ + + + documented as of this encounter Visit Diagnoses Not on filedocumented in this encounter"
--- OUTSIDE RECORDS SUMMARY | ~2019-05-17 | XMS | Encounter Summary ---
Demographics + + + | Address | [address] | | | [place] [address] | + + + | Home Phone [...] Team Providers + +------+ + | Care Glassblower Name | Role | Phone | + +------+ + | Pending Pcp Addition | PCP | Unavailable | + +------+ + Reason for Visit + + + | Reason | Comments | + + + | Medication | | | management | | + + + Encounter Details +--------+ + + + + | Date | Type | Department | Care Team | Description | +--------+ + + + + | 09/23/ | Telephone | Center for | Em Saunders, | Medication | | 2016 | | Hematologic | PA-C [address] | management | | | | [facility] | [address] | | | | | [address] | [place], [place] | | | | | [address] Mailcode: | [address] | | | | | [facility] [facility] | [phone] | | | | | [place], | | | | | | [place] [address] | | | | | | [phone] | | | +--------+ + + + [...] Visit | Malignancy | [address] [facility] | | | | | | [address] | | | | | | [place] | | | | | | [address] | | | | | | [phone] | | | | | | | | +--------+---------+ + + + documented as of this encounter Visit Diagnoses Not on filedocumented in this encounter"
--- OUTSIDE RECORDS SUMMARY | ~2019-05-17 | XMS | Encounter Summary ---
Demographics + + + | Address | [address] | | | [place] [address] | + + + | Home Phone [...] Team Providers + +------+ + | Care Traffic Monitor Specialist Name | Role | Phone | [...] | 2017 | Encounter | Radiology at [facility] | [address] | | | | | [address] | [address] | | | | | [place]bi Burger Mailcode: | [place], [place] | | | | | [address] Physician's | [address] | | | | | [place], | [phone] | | | | | [place] [address] | | | | | | [phone] | | | +--------+ + + + [...] 2019 | Visit | Malignancy | [address] [facility] | | | | | | [address] | | | | | | [place], [place] | | | | | | [address] | | | | | | [phone] | | | | | | | [...]
--- OUTSIDE RECORDS SUMMARY | ~2019-05-17 | XMS | Encounter Summary ---
Demographics + + + | Address | [address] | | | [place] [address] | + + + | Home Phone | | + + + | Preferred Language | Unknown | + + + | Marital Status | | + + + | Yazdanism Affiliation | SPI | + + + [...] Team Providers + +------+ + | Care Boat Hoist Operator Name | Role | Phone | + +------+ + | No Pcp Per Patient | PCP | Unavailable | + +------+ + Encounter Details +--------+ + + + + | Date | Type | Department | Care Team | Description | +--------+ + + + + | 03/15/ | Hospital | Diagnostic | Yari Garcia MD | | | 2017 | Encounter | [facility] at [facility] | [address] [facility] | | | | | [address] | [address] | | | | | [place] Mailcode: | [place], [place] | | | | | [address] Physician's | [address] | | | | | [place], | [phone] | | | | | [place] [address] | | | | | | [phone] | | | +--------+ + + + [...] Rd | | | | | | [place], [place] | | | | | | [address] | | | | | | [phone] | | | | | | | | +--------+---------+ + + + documented as of this encounter Procedures + +--------+ + + + | Procedure Name | Priori | Date/Time | Associated Diagnosis | Comments | | | ty | | | | + +--------+ + + + | X-RAY HIP 2 VIEWS | Routin | 03/15/2017 | 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 | [facility] | | COMPARISON: 10/18/2016 FINDINGS: Total left hip arthroplasty | RADIOLOGY VOICE | | is in normal alignment without periprosthetic fracture, loosening, | RECOGNITION | | failure or polyethylene wear. Subchondral sclerosis and lucency in the | | | superior aspect of the right femoral head is unchanged from the prior | | | exam. Right hip joint space is preserved. No focal soft tissue | | | abnormality. IMPRESSION: Stable total left hip arthroplasty | | | without evidence of complication. 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 I have personally reviewed the images and, if | | | necessary, edited the report. I agree with the report as now | | | presented. | | + + + + + | Procedure Note | + + | Service Account, Radiant Res In Interface - 03/15/2017 1:49 PM PDT STUDY: PELVIS 1 | | VIEW AND RIGHT HIP 2 VIEWSHISTORY: Pain.COMPARISON: 10/18/2016FINDINGS: Total left hip | | arthroplasty is in normal alignment without periprosthetic fracture, loosening, failure | | or polyethylene wear. Subchondral sclerosis and lucency in the superior aspect of the | | right femoral head is unchanged from the prior exam. Right hip joint space is preserved. | | No focal soft tissue abnormality.IMPRESSION: Stable total left hip arthroplasty without | | evidence of complication.Right femoral head osteonecrosis is unchanged. I have | | personally reviewed the images and, if necessary, edited the report. I agree with the | | report as now presented. | |from the prior exam. Right hip joint space is preserved. No focal soft tissue abnormality. | | | |IMPRESSION: | | | |Stable total left hip arthroplasty without evidence of complication. | | | |Right femoral head osteonecrosis is unchanged. | | | | | |I have [...] leukemia in remission | + + | 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
--- OUTSIDE RECORDS SUMMARY | ~2019-05-17 | XMS | Encounter Summary ---
Demographics + + + | Address | [address] | | | [place] [address] | + + + | Home Phone [...] Team Providers + +------+ + | Care Procedure Manager Name | Role | Phone | + +------+ + | Zayda Hinton | PCP | | + +------+ + Encounter Details +--------+ + + + + | Date | Type | Department | Care Team | Description | +--------+ + + + + | 08/18/ | Pharmacy | Specialty Pharmacy | | | | 2016 | Visit | Services [address] | | | | | | [address] | | | | | | [place], [place] | | | | | | [address] | | | | | | [phone] | | | +--------+ + + + [...] 2019 | Visit | Malignancy | [address] [facility] | | | | | | [address] | | | | | | [place], [place] | | | | | | [address] | | | | | | [phone] | | | | | | | | +--------+---------+ + + + documented as of this encounter Visit Diagnoses Not on filedocumented in this encounter"
--- OUTSIDE RECORDS SUMMARY | ~2019-05-17 | XMS | Encounter Summary ---
Demographics + + + | Address | [address] | | | [place] [address] | + + + | Home Phone [...] Team Providers + +------+ + | Care Drug And Alcohol Counselor Name | Role | Phone | + +------+ + | Pending Pcp Addition | PCP | Unavailable | + +------+ + Reason for Visit + + + | Reason | Comments | + + + | Lab Draw | neostar | + + + Benefits Check (Routine) +--------+--------+ + + + + | Status | Reason | Specialty | Diagnoses / | Referred By | Referred To | | | | | Procedures | Contact | Contact | +--------+--------+ + + + + | Closed | | Hematology | Diagnoses | [facility] | [facility] | | | | Malignancy | BMT | Epic Dept | Yari Jones MD | | | | | | | [address] | | | | | | | [address] | | | | | | | [address] [place], | | | | | | | [place] | | | | | | | [address] | | | | | | | Phone: | | | | | | | [phone] | | | | | | | Fax: | | | | | | | [phone] | +--------+--------+ + + + + Encounter Details +--------+ + + + + | Date | Type | Department | Care Team | Description | +--------+ + + + + | 11/10/ | Clinical | Center for | | Lab Draw (neostar) | | 2016 | Support | Hematologic | | | | | Staff | Malignancies at [facility] | | | | | | [address] | | | | | | [place] Mailcode: | | | | | | [id number] [place] | | | | | | [place], | | | | | | [place] [address] | | | | | | [phone] | | | +--------+ + + + [...] + + + | Blood Pressure | 119/78 | 11/11/2015 10:51 AM | | | | | PDT | | + + + + + | Pulse | 81 | 11/11/2015 10:51 AM | | | | | PDT | | + + + + + | Temperature | 36.9 C (98.5 F) | 11/11/2015 10:51 AM | | | | | PDT | | + + + + + | Respiratory Rate | 18 | 11/11/2015 10:51 AM | | | | | PDT | | + + + + + | Oxygen Saturation | 99% | 11/11/2015 10:51 AM | | | | | PDT | | + + + + + | Inhaled Oxygen | - | - | | | Concentration | | | | + + + + + | Weight | 86 kg (189 lb 9.5 | 11/11/2015 10:51 AM | | | | oz) | PDT | | + + + + + | Height | - | - | | + + + + + | Body Mass Index | 24.51 | 08/18/2015 4:35 PM | | | | | PST | | + + + + + documented in this encounter Progress Notes Marie Peres RN - 11/11/2015 12:41 PM PDTPatient ambulated into clinic for scheduled lab draw. He reports to be feeling well today. He states his energy level is coming up and he h as been able to get out more and do things with his family. Denies fever, chills, chest pain , SOB, n/v/d, bleeding, and bruising. 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 Patient reports to be eating adequately and "definitely" drinking 2L of fluid daily. Dressing C/D/I. Neostar accessed per protocol. Good blood return noted. Appropriate waste discarded. Lab s drawn and sent. Neostar pulse flushed with 20 mL NS. Patient reports that he took his tacrolimus today. ORLY Yanes informed and level not draw. No supportive care indicated today. Patient discharged ambulatory from clinic. documented in [...] 2019 | Visit | Malignancy | [address] [facility] | | | | | | [address] | | | | | | [place], [place] | | | | | | [address] | | | | | | [phone] | | | | | | | | +--------+---------+ + + + documented as of this encounter Procedures + +--------+ + + + | Procedure Name | Priori | Date/Time | Associated Diagnosis | Comments | | | ty | | | | + +--------+ + + + | BMP + MAG, POC CHM | Routin | 11/11/2015 | S/P allogeneic | Results for this | | | e | 11:29 AM | bone marrow | procedure are [...] + + | CBC+DIFF,POC | Routin | 11/11/2015 | S/P allogeneic | Results for this | | | e | 11:05 AM | bone marrow | procedure are [...] + | LIVER SET | Urgent | 11/11/2015 | S/P allogeneic | Results for this | | (AST,ALT,BILI | | 10:48 AM | bone marrow | procedure are [...] + | TREATMENT PARAMETERS | Routin | 11/11/2015 | 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), 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 | | | | | | induction failure | | + +--------+ + + + | TREATMENT PARAMETERS | Routin | 11/11/2015 | 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), 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 | | | | | | induction failure | | + +--------+ + + + | TREATMENT PARAMETERS | Routin | 11/11/2015 | 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), 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 | | | | | | induction failure | | + +--------+ + + + | TREATMENT PARAMETERS | Routin | 11/11/2015 | 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), M4 | | | | | PDT | ([facility])- primary | | | | | | induction failure | | + +--------+ + + + | TREATMENT PARAMETERS | Routin | 11/11/2015 | 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), M4 | | | | | PDT | ([facility])- primary | | | | | | induction failure | | + +--------+ + + + | NURSING | Routin | 11/11/2015 | Acute myeloid | | | COMMUNICATION #3 - | e | 10:47 AM | leukemia (AML), M4 | | | [facility] | | PDT | ([facility])- primary | | | | | | induction failure | | + +--------+ + + + | NURSING | Routin | 11/11/2015 | Acute myeloid | | | COMMUNICATION #2 - | e | 10:47 AM | leukemia (AML), M4 | | | [facility] | | PDT | (HCC)- primary | | | | | | induction failure | | + +--------+ + + + | NURSING | Routin | 11/11/2015 | Acute myeloid | | | COMMUNICATION #1 - | e | 10:47 AM | leukemia (AML), M4 | | | [facility] | | PDT | ([facility])- primary | | | | | | induction failure | | + +--------+ + + + | TREATMENT PARAMETERS | Routin | 11/11/2015 | Acute myeloid | | | #1 - [facility] | e | 10:47 AM | leukemia (AML), M4 | | | | | PDT | ([facility])- primary | | | | | | induction failure | | + +--------+ + + + | TREATMENT PARAMETERS | Routin | 11/11/2015 | Acute myeloid | | | #1 - [facility] | e | 10:47 AM | leukemia (AML), M4 | | | | | PDT | ([facility])- primary | | | | | | induction failure | | + +--------+ + + + documented in this encounter Results BMP + MAG, POC CHM (11/11/2015 11:29 AM PDT) + +---------+ + + + [...] +---------+ + + + | GLUCOSE, | 89 | 60 - 99 mg/dL | [facility] [...] +---------+ + + + | CREATININE, | 0.5 (L) | 0.7 - 1.3 mg/dL | [...] [facility] | [address] | [place], [place] | | | [address] | [address] | [address] | | | TESTS | | | | + + + + + INGRID+PHIL GRIJALVA (11/11/2015 11:05 AM PDT) + + + + + + | Component | Value | Ref Range | Performed | Pathologist | | | | | At | Signature | + + + + + + | WBC POC | 5.4 | 4.4 - 11.0 | [facility] - | | | | | 10*3/uL | [facility] | | | | | | [facility], POINT | | | | | | OF CARE | | | | | | TESTS | | + + + + + + | RBC POC | 3.34 (L) | 4.50 - 6.00 | [facility] - | | | | | 10*6/uL | [facility] | | | | | | [facility], POINT | | | | | | OF CARE | | | | | | TESTS | | + + + + + + | HGB POC | 11.5 (L) | 13.5 - 17.5 | [facility] - | | | | | g/dL | [facility] | | | | | | [facility] POINT | | | | | | OF CARE | | | | | | TESTS | | + + + + + + | HCT POC | 34.3 (L) | 41.0 - 53.0 % | [facility] - | | | | | | [facility] | | | | | | [facility] POINT | | | | | | OF CARE | | | | | | TESTS | | + + + + + + | MCV POC | 102.7 (H) | 80.0 - 96.0 fL | [facility] - | | | | | | [facility] | | | | | | [facility] POINT | | | | | | OF CARE | | | | | | TESTS | | + + + + + + | MCH POC | 34.4 (H) | 28.5 - 32.3 pg | [...] + + | RDW SD, POC | 61.4 (H) | 35.1 - 46.3 fL | [facility] - | | | | | | [facility] | | | | | | [facility] POINT | | | | | | OF CARE | | | | | | TESTS | | + + + + + + | PLT POC | 37 (L) | 150 - 400 | [facility] - | | | | | 10*3/uL | [facility] | | | | | | [facility] POINT | | | | | | OF CARE | | | | | | TESTS | | + + + + + + | MPV POC | 8.4 (L) | 9.7 - 12.3 fL | [facility] - | | | | | | [facility] | | | | | | [facility] POINT | | | | | | OF CARE | | | | | | TESTS | | + + + + + + | NEUTROPHIL% | 61.9 | 50.0 - 70.0 % | [facility] - | | | POC | | | [facility] | | | | | | [facility], POINT | | | | | | OF CARE | | | | | | TESTS | | + + + + + + | LYMPH% POC | 32.6 | 18 - 42 % | [facility] - | | | | | | [facility] | | | | | | [facility], POINT | | | | | | OF CARE | | | | | | TESTS | | + + + + + + | MONO %, POC | 4.4 | 3.5 - 9.0 % | [facility] [...] + + + + | NEUTROPHIL# | 3.3 | 1.8 - 7.7 | [facility] - | | | POC | | 10*3/uL | [facility] | | | | | | [facility] POINT | | | | | | OF CARE | | | | | | TESTS | | + + + + + + | LYMPH# POC | 1.8 | 1.0 - 4.8 | [facility] - | | | | | 10*3/uL | [facility] | | | | | | [facility] POINT | | | | | | OF CARE | | | | | | TESTS | | + + + + + + | MONO #, POC | 0.2 | 0.1 - 0.9 | [facility] - [...] [facility] | [address] | [place], [place] | | | [address] | [address] | [address] | | | TESTS | | | | + + + + + LIVER SET (AST,ALT,BILI TOTAL,BILI DIRECT,ALK PHOS,ALB,PROT TOTAL) (11/11/2015 10:48 AM PDT ) + +---------+ + + [...] + + + | ALK PHOS | 56 | 53 - 128 U/L | [facility] | | | | | | LABORATORY | | | | | | SERVICES, | | | | | | CORE | | + +---------+ + + + | AST(SGOT) | 37 | <=41 U/L | [facility] | | [...] | + + + + + | [employer] | [address] | [place] [address] | | | SERVICES, CORE | [address] [...]
--- OUTSIDE RECORDS SUMMARY | ~2019-05-17 | XMS | Encounter Summary ---
Demographics + + + | Address | [address] | | | [place] [address] | + + + | Home Phone | | + + + | Preferred Language | Unknown | + + + | Marital Status | | + + + | Denominational Affiliation | SPI | + + + | Race | White | + + + | Ethnic Group | Not or | + + + Author + + + | Author | [facility] | + + + | Organization | [facility] | + + + | Address | Unknown | + + + | Phone | Unavailable | + + + Support + + +---------+ + | Name | Relationship | Address | Phone | + + +---------+ + | Gabriel Kelly | ECON | Unknown | | + + +---------+ + Care Team Providers + +------+ + | Care Boat Tester Name | Role | Phone | + [...] | | | | | | [place], | | | | | | | [place] | | | | | | | [address] | | | | | | | Phone: | | | | | | | [phone] | | | | | | | Fax: | | | | | | | [phone] | +--------+--------+ + + + + Encounter [...] | remission (HCC) | | | | [facility] | [place], [place] | (Primary Dx) | | | | [address] | [address] | | | | | [address] Mailcode: | [phone] | | | | | [id number] [facility] | | | | | | [facility] [place], | | | | | | [place] [address] | | | | | | [phone] | | | +--------+---------+ + + + [...] ), please call the Triage nurse at [phone]. 3. Because you received sedating medication (morphine), [...] team pause: Queenie Carcamo RN; Yoli Yanes TRACK GRINDER. Description: Written consent for bone marrow aspirate [...] OR[facility] Yanes [facility] AT [address] Mailcode: [address] [id number] documented in this enc ounter Plan of [...] Rd | | | | | | [place], [place] | | | | | | [address] | | | | | | [phone] | | | | | | | | +--------+---------+ + + + documented as of this encounter Procedures + +--------+ + + + | Procedure Name | Priori | Date/Time | Associated Diagnosis | Comments | | | ty | | | | + +--------+ + + + | [place] BONE MARROW ASP | Routin | 04/19/2016 | Acute | | | SAME DAY BIOPSY | e | 3:24 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
--- OUTSIDE RECORDS SUMMARY | ~2019-05-17 | XMS | Encounter Summary ---
Demographics + + + | Address | [address] | | | [place] [address] | + + + | Home Phone [...] Team Providers + +------+ + | Care Wholesale Buyer Name | Role | Phone | + +------+ + | Pending Pcp Addition | PCP | Unavailable | + +------+ + Reason for Visit + + + | Reason | Comments | + + + | Transplant | LIT HLA - Recipient Verification | + + + Encounter Details +--------+ + + + + | Date | Type | Department | Care Team | Description | +--------+ + + + + | 07/19/ | Documentati | Kidney Transplant | Luis Carlos Sanders, | Transplant (LIT HLA | | 2016 | on | at [facility] | [address] | - Recipient | | | | [address] | [address] | Verification) | | | | [address] Mailcode: | [place], [place] | | | | | [address] [facility] | [address] | | | | | [address] | [phone] | | | | | [place], [place] | | | | | | [address] | | | | | | [phone] | | | +--------+ + + + [...] | 05/19/ | Office | Hematology | Yrai Garcia MD | | | 2019 | Visit | Malignancy | [address] | | | | | [address] | | | | | | [place], [place] | | | | | | [address] | | | | | | [phone] | | | | | | | | +--------+---------+ + + + documented as of this encounter Visit Diagnoses Not on filedocumented in this encounter"
--- OUTSIDE RECORDS SUMMARY | ~2019-05-17 | XMS | Encounter Summary ---
Demographics + + + | Address | [address] | | | [place] [address] | + + + | Home Phone [...] Team Providers + +------+ + | Care Truck Driver Heavy Name | Role | Phone | + +------+ + | Pending Pcp Addition | PCP | Unavailable | + +------+ + Reason for Visit + + + | Reason | Comments | + + + | Lab Draw | | + + + | Transfusion | platelets,prbc's | + + + Benefits Check (Routine) [...] | | | | | | | [address] | | | | | | | [address] | | | | | | | [place], | | | | | | | [place] | | | | | | | [address] | | | | | | | Phone: | | | | | | | [phone] | | | | | | | Fax: | | | | | | | [phone] | +--------+--------+ + + + + Encounter Details +--------+ + + + + | Date | Type | Department | Care Team | Description | +--------+ + + + + | 08/08/ | Clinical | [facility] | | Lab Draw; | | 2015 | Support | Hematologic | | Transfusion | | | Staff | [facility] | | (platelets,prbc's) | | | | [address] | | | | | | [address] Mailcode: | | | | | | [id number] [place] | | | | | | [place], | | | | | | [place] [address] | | | | | | [phone] | | | +--------+ + + + [...] + + + | Blood Pressure | 105/62 | 2015 12:00 PM | | | | | PST | | + + + + + | Pulse | 68 | 2015 12:30 PM | | | | | PST | | + + + + + | Temperature | 36.5 C (97.7 F) | 2015 12:00 PM | | | | | PST | | + + + + + | Respiratory Rate | 16 | 2015 12:00 PM | | | | | PST | | + + + + + | Oxygen Saturation | 100% | 2015 9:00 AM | | | | | PST | | + + + + + | Inhaled Oxygen | - | - | | | Concentration | | | | + + + + + | Weight | 83.4 kg (183 lb 13.8 | 2015 9:00 AM | | | | oz) | PST | | + + + + + | Height | - | - | | + + + + + | Body Mass Index | 23.29 | 07/15/2015 1:57 PM | | | | | PST | | + + + + + documented in this encounter Progress Notes Jhon Leblanc MA - 08/09/2015 11:13 AM PSTFor the CBC POC resulting on 2015, th e flag comment should only include WBCAbnScat. 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 He also has no past medical history of Blindness, Other and unspecified symptoms a nd signs involving general sensations and perceptions, Hearing loss, Arrhythmia, Congestive heart failure (HCC), Sleep apnea, Pulmonary tuberculosis, Asthma, Chronic airway obstruction (HCC), Regional enteritis (HCC), GERD (gastroesophageal reflux disease), Hernia, hiatal, Ir ritable bowel syndrome, Ulcerative colitis (HCC), Encounter for extracorporeal dialysis (HCC ), Kidney stones, UTI (urinary tract infection), Type 2 diabetes mellitus (HCC), Type 1 diab etes mellitus (HCC), Disorder of adrenal gland (HCC), Anxiety state, Depressive disorder, Mi graine, Nonpsychotic mental disorder, Panic disorder, Acute, but ill-defined, cerebrovascula r disease (HCC), or High risk for colon cancer. Pre-Infusion Pain Score: Patient reports a pain level of 0 today. Appetite remains sluggis h. Drinking at least 2L fluid daily. C/o constipation. Encouraged to limit sodium intake d/t increased sodium level. Encouraged to drink free water. And take senna as prescribed. Power PICC accessed per protocol. Good blood return noted. Appropriate waste discarded. Labs drawn and sent. Power PICC pulse flushed with 20 mL NS. Lab Results Component Value Date PLT 4 2015 Orders to transfuse platelet product for a [...] consent was verified. The patient was not premedicated. He received 1 unit of platelets per Provider s orders. Transfusion was tolerated well without complication. Frequent vital signs were monitored throughout the transfusion and reviewed by me. For transfusion details, see ONC Lines & Tra nsfusions doc flowsheet. Lab Results Component Value Date HCT 19.7 2015 HB 7.1 2015 Orders to transfuse PRBC product for a [...] consent was verified. The patient was not premedicated. He received 1 unit of PRBCs per Provider s orders. Pt developed hives at end of transfusion which resolved after 2 doses of IV benadryl. Frequen t vital signs were monitored throughout the transfusion and reviewed by me. For transfusion details, see ONC Lines & Transfusions doc flowsheet. For Treatment Done in Clinic Today refer to MAR Post Infusion Pain score: 0 Assessment: Tolerated procedure Kezia Chambers RN documented in this encou nter Plan of Treatment +--------+---------+ + + + | Date | Type | Specialty | Care Team | Description | +--------+---------+ + + + | 05/19/ | Lab | Phlebotomy | | | | 2019 | | | | | +--------+---------+ + + + | 05/19/ | Office | Hematology | Yari Garcia MD | | | 2018 | Visit | Malignancy | [address] [facility] | | | | | | [address] | | | | | | [place], [place] | | | | | | [address] | | | | | | [phone] | | | | | | | | +--------+---------+ + + + documented as of this encounter Procedures + +--------+ + + + | Procedure Name | Priori | Date/Time | Associated Diagnosis | Comments | | | ty | | | | + +--------+ + + + | PRODUCT - PLATELET | Routin | 2015 | Acute myeloid | Results for this | | PHERESIS | e | 8:22 AM | leukemia (AML), M4 | procedure are in the | | LEUKOREDUCED | | PST | ([facility]) | results section. | + +--------+ + + + | PRODUCT - RED CELLS | Routin | 2015 | Acute myeloid | Results for this | | LEUKOREDUCED | e | 8:22 AM | leukemia (AML), M4 | procedure are in the | | | | PST | ([facility]) | results section. | + +--------+ + + + | CBC+DIFF,POC | Routin | 2015 | Acute myeloid | Results for this | | | e | 8:18 AM | leukemia (AML), M4 | procedure are in the | | | | PST | ([facility]) | results section. | + +--------+ + + + | CMP, POC (BMP+LFT) | Routin | 2015 | Acute myeloid | Results for this | | | e | 8:16 AM | leukemia (AML), M4 | procedure are in the | | | | PST | ([facility]) | results section. | + +--------+ + + + | LDH TOTAL, PLASMA | Routin | 2015 | Acute myeloid | Results for this | | | e | 8:05 AM | leukemia (AML), M4 | procedure are in the | | | | PST | ([facility]) | results section. | + +--------+ + + + | TREATMENT PARAMETERS | Routin | 2015 | 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:04 AM | leukemia (AML), M4 | | | | | PST | ([facility]) | | + +--------+ + + + | TREATMENT PARAMETERS | Routin | 2015 | 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:04 AM | leukemia (AML), M4 | | | | | PST | (HCC) | | + +--------+ + + + | TREATMENT PARAMETERS | Routin | 2015 | 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:04 AM | leukemia (AML), M4 | | | | | PST | (HCC) | | + +--------+ + + + | TREATMENT PARAMETERS | Routin | 2015 | 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:04 AM | leukemia (AML), M4 | | | | | PST | (HCC) | | + +--------+ + + + | TREATMENT PARAMETERS | Routin | 2015 | 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:04 AM | leukemia (AML), M4 | | | | | PST | (HCC) | | + +--------+ + + + | NURSING | Routin | 2015 | Acute myeloid | | | COMMUNICATION #3 - | e | 8:04 AM | leukemia (AML), M4 | | | [facility] | | PST | ([facility]) | | + +--------+ + + + | NURSING | Routin | 2015 | Acute myeloid | | | COMMUNICATION #2 - | e | 8:04 AM | leukemia (AML), M4 | | | [facility] | | PST | ([facility]) | | + +--------+ + + + | NURSING | Routin | 2015 | Acute myeloid | | | COMMUNICATION #1 - | e | 8:04 AM | leukemia (AML), M4 | | | [facility] | | PST | ([facility]) | | + +--------+ + + + | TREATMENT PARAMETERS | Routin | 2015 | Acute myeloid | | | #1 - [place] | e | 8:04 AM | leukemia (AML), M4 | | | | | PST | ([facility]) | | + +--------+ + + + | TREATMENT PARAMETERS | Routin | 2015 | Acute myeloid | | | #1 - [place] | e | 8:04 AM | leukemia (AML), M4 | | | | | PST | ([facility]) | | + +--------+ + + + | ANTIBODY SCREEN | Routin | 2015 | Acute myeloid | Results for this | | | e | 8:04 AM | leukemia (AML), M4 | procedure are in the | | | | PST | (HCC) | results section. | + +--------+ + + + | TYPE AND SCREEN | Routin | 2015 | Acute myeloid | Results for this | | | e | 8:04 AM | leukemia (AML), M4 | procedure are in the | | | | PST | (HCC) | results section. | + +--------+ + + + | ABO & RH TYPE | Routin | 2015 | Acute myeloid | Results for this | | | e | 8:04 AM | leukemia (AML), M4 | procedure are in the | | | | PST | ([facility]) | results section. | + +--------+ + + + documented in this encounter Results PRODUCT - PLATELET PHERESIS LEUKOREDUCED (2015 8:22 AM PST) + + + + + + | Component | Value | Ref Range | Performed | Pathologist | | | | | At | Signature | + + + + + + | PRODUCT | PLATELETS | | [facility] | | | DESCRIPTION | PHERESIS,LEUKOCYTES | | DEPARTMENT | | | | REDUCED, IRRADIATED | | OF | | | | | | PATHOLOGY | | + + + + + + | PRODUCT | [id number] | | [facility] | | | UNIT [...] + + + + | EXPIRATION | [id number] | | [facility] | | | DATE [...] + + + + | BLOOD | [id number] | | [facility] | | | PRODUCT [...] DEPARTMENT OF | [address] | [place] [address] | | | PATHOLOGY | [address] | | | + + + + + PRODUCT - RED CELLS LEUKOREDUCED (2015 8:22 AM PST) + + + + + [...] + + + + | PRODUCT | [id number] | | [facility] | | | UNIT [...] + + + + | EXPIRATION | [id number] | | [facility] | | | DATE [...] + + + + | BLOOD | [id number] | | [facility] | | | PRODUCT [...] + | [facility] DEPARTMENT OF | [address] | [place] [address] | | | PATHOLOGY | [address] | | | + + + + + CBC+DIFF,POC (2015 8:18 AM PST) + + + + + + | Component | Value | Ref Range | Performed | Pathologist | | | | | At | Signature | + + + + + + | WBC POC | 0.3 (L) | 4.4 - 11.0 | [facility] - | | | | | 10*3/uL | [facility] | | | | | | [address] | | | | | | OF CARE | | | | | | TESTS | | + + + + + + | RBC POC | 2.48 (L) | 4.50 - 6.00 | [facility] - | | | | | 10*6/uL | [facility] | | | | | | [facility] | | | | | | OF CARE | | | | | | TESTS | | + + + + + + | HGB POC | 7.1 (L) | 13.5 - 17.5 | [facility] - | | | | | g/dL | [facility] | | | | | | [facility] | | | | | | OF CARE | | | | | | TESTS | | + + + + + + | HCT POC | 19.7 (L) | 41.0 - 53.0 % | [facility] - | | | | | | [facility] | | | | | | [facility] | | | | | | OF CARE | | | | | | TESTS | | + + + + + + | MCV POC | 79.4 (L) | 80.0 - 96.0 fL | [facility] - | | | | | | [facility] | | | | | | [facility] | | | | | | OF CARE | | | | | | TESTS | | + + + + + + | MCH POC | 28.6 | 28.5 - 32.3 pg | [facility] [...] + + | RDW SD, POC | 30.3 (L) | 35.1 - 46.3 fL | [facility] - | | | | | | [facility] | | | | | | [facility] | | | | | | OF CARE | | | | | | TESTS | | + + + + + + | PLT POC | 4 (AA) | 150 - 400 | [facility] - | | | | | 10*3/uL | [facility] | | | | | | [facility] | | | | | | OF CARE | | | | | | TESTS | | + + + + + + | MPV POC | 12.4 (H) | 9.7 - 12.3 fL | [facility] - | | | | | | [facility] | | | | | | [facility], POINT | | | | | | OF CARE | | | | | | TESTS | | + + + + + + | NEUTROPHIL% | 0.0 (L) | 50.0 - 70.0 % | [facility] - | | | POC | | | [facility] | | | | | | [facility], POINT | | | | | | OF CARE | | | | | | TESTS | | + + + + + + | LYMPH% POC | 64.7 (H) | 18 - 42 % | [facility] - | | | | | | [facility] | | | | | | [facility], POINT | | | | | | OF CARE | | | | | | TESTS | | + + + + + + | MONO %, POC | 35.3 (H) | 3.5 - 9.0 % | [...] + + | BASO %, POC | 0.0 | 0.0 - 2.0 % [...] | | POC | | 10*3/uL | [facility] | | [...] + + | MONO #, POC | 0.1 | 0.1 - 0.9 | [facility] - [...] [facility] | [address] | [place], [place] | | | [facility] OF CARE | [address] | [address] | | | TESTS | | | | + + + + + CMP METABOL,POC (2015 8:16 AM PST) + +---------+ + + + | Component | Value | Ref Range | Performed | Pathologist | | | | | At | Signature | + +---------+ + + + | SODIUM, POC | 149 (H) | 134 - 143 | [facility] - [...] +---------+ + + + | GLUCOSE, | 115 (H) | 60 - 99 mg/dL | [...] + + + | ALK PHOS, | 58 | 41 - 99 U/L | [facility] - | | | CMP POC | | | [facility] | | | | | | [facility] | | | | | | OF CARE | | | | | | TESTS | | + +---------+ + + + | ALT, CMP | 35 | 0 - 60 U/L | [facility] - | | | POC | | | [facility] | | | | | | [facility] | | | | | | OF CARE | | | | | | TESTS | | + +---------+ + + + | AST, CMP | 28 | 0 - 41 U/L | [facility] - | | | POC | | | [facility] | | | | | | [facility] | | | | | | OF CARE | | | | | | TESTS | | + +---------+ + + + | BILIRUBIN | 0.7 | 0.3 - 1.2 mg/dL | [facility] [...] [facility] | [address] | [place], [place] | | | [facility] POINT OF CARE | [address] | [address] | | | TESTS | | | | + + + + + LDH TOTAL, PLASMA (2015 8:05 AM PST) + +---------+ + + + | Component | Value | Ref Range | Performed | Pathologist | | | | | At | Signature | + +---------+ + + + | LD TOTAL, | 126 | <=250 U/L | [facility] | | [...] | + + + + + | [facility] | [address] | [place] [address] | | | SERVICES, CORE | [address] | | | + + + + + ANTIBODY SCREEN (2015 8:04 AM PST) + + + + + [...] [facility] | [address] | [place] [address] | | | SERVICES, | [address] | | | | TRANSFUSION MEDICINE | | | | + + + + + ABO & RH TYPE (2015 8:04 AM PST) + + + + + [...] | + + + + + | [facility] | [address] | [place] [address] | | | SERVICES, | [address] | | | | TRANSFUSION MEDICINE | | | | + + + + + documented in this encounter Visit Diagnoses + + | Diagnosis | + + | Acute myeloid leukemia (AML), M4 (HCC) | + + documented in this encounter Administered Medications + +---------+ +---------+------+------+ | Medication Order | MAR | Action | Dose | Rate | Site | | | Action | Date | | | | + +---------+ +---------+------+------+ | diphenhydrAMINE (BENADRYL) | New Bag | 08/08/19 | 12.5 mg | | | | injection 12.5 mg 12.5 mg, | | 16 12:10 | | | | | intravenous, ONCE, 1 dose, Sun | | PM PST | | | | | 08/08/15 at 1245 | | | | | | + +---------+ +---------+------+------+ +---+---+ | | | +---+---+ + +---------+ +-------+---+---+ | diphenhydrAMINE (BENADRYL) | Bag | 08/08/19 | 25 mg | | | | injection 25 mg 25 mg, | | 16 11:55 | | | | | intravenous, ONCE, 1 dose, Sun | | AM PST | | | | | 08/08/15 at 1215 | | | | | | + +---------+ +-------+---+---+ +---+---+ | | | +---+---+ documented in this encounter"
--- OUTSIDE RECORDS SUMMARY | ~2019-05-17 | XMS | Encounter Summary ---
Demographics + + + | Address | [address] | | | [place] [address] | + + + | Home Phone [...] Team Providers + +------+ + | Care [employer]ed [employer] Deburrer Name | Role | Phone | + +------+ + | Zayda Hinton | PCP | | + +------+ + Encounter Details +--------+------+ + + + | Date | Type | Department | Care Team | Description | +--------+------+ + + + | 11/18/ | Lab | Laboratory, | | Hx of allogeneic | | 2018 | | Specimen Collection | | stem cell transplant | | | | at [facility] 3rd Floor | | ([facility]) | | | | [address] | | | | | | [place], | | | | | | [place] [address] | | | | | | [phone] | | | +--------+------+ + + + [...] [address] | | | | | | [place], [place] | | | | | | [address] | | | | | | [phone] | | | | | | | | +--------+---------+ + + + documented as of this encounter Procedures + +--------+ + + + | Procedure Name | Priori | Date/Time | Associated Diagnosis | Comments | | | ty | | | | + +--------+ + + + | [facility] - CBC ONLY | Routin | 11/18/2018 | Hx of allogeneic | Results for this | | | e | 10:07 AM | stem cell transplant | procedure are in the | | | | PDT | ([facility]) | results section. | + +--------+ + + + | [facility] - COMPLETE | Routin | 11/18/2018 | Hx of allogeneic | Results for this | | METABOLIC SET | e | 10:07 AM | stem cell transplant | procedure are in the | | | | PDT | ([facility]) | results section. | + +--------+ + + + documented in this encounter Results [facility] - CBC ONLY (11/18/2018 10:07 AM [...] | + + + + + | [facility] | [address] | [place] [address] | | | SERVICES, CORE | [address] | | | + + + + + [facility] - COMPLETE METABOLIC SET (11/18/2018 10:07 AM [...] | | | LABORATORY | | | [facility] | | | SERVICES, | | | [...] MDRD equation recommended by the National | [facility] | | Kidney Disease Education Program. Estimated [...] | + + + + + | [address] | [address] | [place] [address] | | | SERVICES, CORE | [address] | | | + + + + + documented in this encounter Visit Diagnoses + + | Diagnosis | + + | Hx of allogeneic stem cell transplant (HCC) | + + documented in this encounter"
--- OUTSIDE RECORDS SUMMARY | ~2019-05-17 | XMS | Encounter Summary ---
Demographics + + + | Address | [address] | | | [place] [address] | + + + | Home Phone | | + + + | Preferred Language | Unknown | + + + | Marital Status | | + + + | Jain Affiliation | SPI | + + + [...] Team Providers + +------+ + | Care Tractor Technician Name | Role | Phone | + +------+ + | Pending Pcp Addition | PCP | Unavailable | + +------+ + Reason for Visit + + + | Reason | Comments | + + + | Lab Draw | Triple lumen | + + + | Follow-up visit | | + + + | Dressing change | Triple lumen | + + + | Intravenous infusion | Magnesium | + + + Office Visit - E/M Services (Routine) +--------+---------+ + + + + | Status | Reason | Specialty | Diagnoses / | Referred By | Referred To | | | | | Procedures | Contact | Contact | +--------+---------+ + + + + | Closed | Other | Hematology | Diagnoses | Cook, | [employer] | | | | Malignancy | 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, | [address] | [address] | | | | | not having | [address] | Mailcode: | | | | | achieved | [place], [place] | [id number] | | | | | remission | [address] | [facility] | | | | | | Phone: | Pavilion | | | | | Procedures | [phone] | [place], [place] | | | | | Post BMT | Fax: | [address] | | | | | Auth to | [phone] | Phone: | | | | | included | | [phone] | | | | | facility, | | Fax: | | | | | diagnostics, | | [phone] | | | | | office | | | | | | | visits and | | | | | | | surgery | | | +--------+---------+ + + + + Encounter Details +--------+ + + + + | Date | Type | Department | Care Team | Description | +--------+ + + + + | 09/23/ | Clinical | Center for | | Lab Draw (Triple | | 2016 | Support | Hematologic | | lumen); Follow-up | | | Staff | Malignancies at V | | visit; Dressing | | | | [address] | | change (Triple | | | | [place] Mailcode: | | lumen); Intravenous | | | | [id number] | | infusion (Magnesium) | | | | [place], | | | | | | [place] [address] | | | | | | [phone] | | | +--------+ + + + [...] + + + | Blood Pressure | 118/80 | 09/24/2015 8:24 AM | | | | | PDT | | + + + + + | Pulse | 64 | 09/24/2015 8:24 AM | | | | | PDT | | + + + + + | Temperature | 36.6 C (97.9 F) | 09/24/2015 8:24 AM | | | | | PDT | | + + + + + | Respiratory Rate | 18 | 09/24/2015 8:24 AM | | | | | PDT | | + + + + + | Oxygen Saturation | 98% | 09/24/2015 8:24 AM | | | | | PDT | | + + + + + | Inhaled Oxygen | - | - | | | Concentration | | | | + + + + + | Weight | 74.5 kg (164 lb 3.9 | 09/24/2015 8:24 AM | | | | oz) | PDT | | + + + + + | Height | - | - | | + + + + + | Body Mass Index | 21.23 | 08/18/2015 4:35 PM | | | | | PST | | + + + + + documented in this encounter Progress Seble Juarez RN - 09/24/2015 8:57 AM PDTPatient in clinic for labs, OV, possible transfusi on, electrolyte replacement, Triple lumen dressing change. Denies pain. No fevers, no deven l or bladder complaints. He has had episodes of nausea and vomiting, none in the past 2 day s or so. He is trying to eat well but says food still tastes metallic to him and not good. He reports that he had mouth sores and pain down to his stomach after the last chemo round in the hospital. He still gets pain at times and takes oxycodone. He is drinking okay alth ough has trouble with liquids that are really cold. Triple lumen accessed per protocol. Good blood return noted. Appropriate waste discarded. Labs drawn and sent. Triple lumen pulse flushed with 20 mL NS and 5 mL of 10 units/mL Hep ga. Patient scheduled for provider visit today with JULIANA Herring. Magnesium Sulfate 2 grams in 50 mL NS infused over 1 hour per supportive care orders for a magnesium level of 1.6 on 09/21/15. Magnesium level today 1.8. No further magnesium needed. Cbc results reviewed. No blood products needed today. Triple lumen intact to left anterior chest wall without erythema or induration. Dressing r emoved, skin intact without s/s exit site or tunnel infection. Using a Central Line Dressin g Change kit, site cleansed with Chloraprep. Skin prep applied prior to dressing applicatio n. Biopatch applied with SorbaView dressing. Positive pressure valves changed to each por t. All lumens pulse flushed with 5 mL of 10 units/mL Heparin. Patient tolerated procedure w ithout difficulty. Patient discharged from clinic stable, ambulatory, accompanied by his spouse. documented in this encoun ter Plan of [...] 2019 | Visit | Malignancy | [address] | | | | | | [address] | | | | | | [place], [place] | | | | | | [address] | | | | | | [phone] | | | | | | | | +--------+---------+ + + + documented as of this encounter Procedures + +--------+ + + + | Procedure Name | Priori | Date/Time | Associated Diagnosis | Comments | | | ty | | | | + +--------+ + + + | CBC+DIFF,POC | Urgent | 09/24/2015 | Acute myeloid | Results for this | | | | 8:47 AM | leukemia (AML), M4 | procedure are in the | | | | PDT | ([facility])- primary | results section. 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 | | | | | | (HCC) | | + +--------+ + + + | LIVER SET | Urgent | 09/24/2015 | Acute myeloid | Results for this | | (AST,ALT,BILI | | 8:15 AM | leukemia (AML), M4 | procedure are in the | | TOTAL,BILI | | PDT | ([facility])- primary | results section. | | DIRECT,ALK | | | induction failure | | | PHOS,ALB,PROT TOTAL) | | | S/P allogeneic bone | | | | | | marrow transplant | | | | | | (HCC) | | + +--------+ + + + | TACROLIMUS, WHOLE | Urgent | 09/24/2015 | Acute myeloid | Results for this | | BLOOD | | 8:15 AM | leukemia (AML), M4 | procedure are in the | | | | PDT | ([facility])- primary | results section. 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 | | | | | | (HCC) | | + +--------+ + + + | PHOSPHORUS, PLASMA | Urgent | 09/24/2015 | Acute myeloid | Results for this | | | | 8:15 AM | leukemia (AML), M4 | procedure are in the | | | | PDT | ([facility])- primary | results section. 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 | | | | | | (HCC) | | + +--------+ + + + | BMP + MAG, POC CHM | Urgent | 09/24/2015 | Acute myeloid | Results for this | | | | 7:42 AM | leukemia (AML), M4 | procedure are in the | | | | PDT | ([facility])- primary | results section. 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 | | | | | | (HCC) | | + +--------+ + + + documented in this encounter Results CBC+DIFF,POC (09/24/2015 8:47 AM PDT) + + + + + + | Component | Value | Ref Range | Performed | Pathologist | | | | | At | Signature | + + + + + + | WBC POC | 10.2 | 4.4 - 11.0 | [facility] - | | | | | 10*3/uL | [facility] | | | | | | [facility] | | | | | | OF CARE | | | | | | TESTS | | + + + + + + | RBC POC | 3.31 (L) | 4.50 - 6.00 | [facility] - | | | | | 10*6/uL | [facility] | | | | | | [facility] | | | | | | OF CARE | | | | | | TESTS | | + + + + + + | HGB POC | 10.3 (L) | 13.5 - 17.5 | [facility] - | | | | | g/dL | [facility] | | | | | | [facility], POINT | | | | | | OF CARE | | | | | | TESTS | | + + + + + + | HCT POC | 29.4 (L) | 41.0 - 53.0 % | [facility] - | | | | | | [facility] | | | | | | [facility], POINT | | | | | | OF CARE | | | | | | TESTS | | + + + + + + | MCV POC | 88.8 | 80.0 - 96.0 fL | [facility] - | | | | | | [facility] | | | | | | [facility], POINT | | | | | | OF CARE | | | | | | TESTS | | + + + + + + | MCH POC | 31.1 | 28.5 - 32.3 pg | [facility] - | | | | | | [facility] | | | | | | [facility], POINT | | | | | | OF CARE | | | | | | TESTS | | + + + + + + | MCHC POC | 35.0 | 33.0 - 35.5 | [facility] - | | | | | g/dL | [facility] | | | | | | [facility] POINT | | | | | | OF CARE | | | | | | TESTS | | + + + + + + | RDW SD, POC | 47.2 (H) | 35.1 - 46.3 fL | [facility] - | | | | | | [facility] | | | | | | [facility] POINT | | | | | | OF CARE | | | | | | TESTS | | + + + + + + | PLT POC | 220 | 150 - 400 | [facility] - [...] + + + + | NEUTROPHIL% | 77.8 (H) | 50.0 - 70.0 % | [facility] - | | | POC | | | [facility] | | | | | | [facility], POINT | | | | | | OF CARE | | | | | | TESTS | | + + + + + + | LYMPH% POC | 9.3 (L) | 18 - 42 % | [facility] - | | | | | | [facility] | | | | | | [facility] POINT | | | | | | OF CARE | | | | | | TESTS | | + + + + + + | MONO %, POC | 11.0 (H) | 3.5 - 9.0 % | [facility] - | | | | | | [facility] | | | | | | [facility], POINT | | | | | | OF CARE | | | | | | TESTS | | + + + + + + | EOS %, POC | 0.9 (L) | 1.0 - 3.0 % | [facility] - | | | | | | [facility] | | | | | | [facility] POINT | | | | | | OF CARE | | | | | | TESTS | | + + + + + + | BASO %, POC | 1.0 | 0.0 - 2.0 % | [facility] - | | | | | | [facility] | | | | | | [facility] POINT | | | | | | OF CARE | | | | | | TESTS | | + + + + + + | NEUTROPHIL# | 7.9 (H) | 1.8 - 7.7 | [facility] - | | | POC | | 10*3/uL | [facility] | | | | | | [facility] POINT | | | | | | OF CARE | | | | | | TESTS | | + + + + + + | LYMPH# POC | 0.9 (L) | 1.0 - 4.8 | [facility] - | | | | | 10*3/uL | [facility] | | | | | | [facility], POINT | | | | | | OF CARE | | | | | | TESTS | | + + + + + + | MONO #, POC | 1.1 (H) | 0.1 - 0.9 | [facility] [...] + + + + | CBC | WBC Abn Scat. Imm Gran. | | [facility] - | | | COMMENT, | Lft Shift. | | [facility] | | | POC [...] [facility] | [address] | [place], [place] | | | [facility] | [facility] | [address] | | | TESTS | | | | + + + + + LIVER SET (AST,ALT,BILI TOTAL,BILI DIRECT,ALK PHOS,ALB,PROT TOTAL) (09/24/2015 8:15 AM PDT ) + +---------+ + + [...] +---------+ + + + | AST(SGOT) | 17 | <=41 U/L | [facility] | | [...] | + + + + + | [facility] | [address] | [place] [address] | | | SERVICES, CORE | [address] | | | + + + + + PHOSPHORUS, PLASMA (09/24/2015 8:15 AM PDT) + +-------+ + + + [...] [facility] | [address] | [place] [address] | | | SERVICES, CORE | [address] | | | + + + + + TACROLIMUS, WHOLE BLOOD (09/24/2015 8:15 AM PDT) + +-------+ + + + | Component | Value | Ref Range | Performed | Pathologist | | | | | At | Signature | + +-------+ + + + | TACROLIMUS | 6.2 | 5.0 - 15.0 | [facility] | [...] + + + + | [facility] | [address] | [place] [address] | | | SERVICES, SPECIAL | [address] | | | | IMM + COAG | | | | + + + + + BMP PLUS, POC CHM (09/24/2015 7:42 AM PDT) + +---------+ + + + [...] +---------+ + + + | CHLORIDE, | 98 | 97 - 108 mmol/L | [facility] - | | | POC | | | [facility] | | | | | | [facility] | | | | | | OF CARE | | | | | | TESTS | | + +---------+ + + + | GLUCOSE, | 113 (H) | 60 - 99 mg/dL | [...] + + + | BUN, POC | 25 (H) | 6 - 20 mg/dL | [facility] [...] + + + | LDH, POC | 249 (H) | 0 - 206 U/L | [facility] - | | | | | | [facility] | | | | | | [facility] ACR[facility] | | | | | | OF [...] [facility] | [address] | [place], [place] | | | [facility] | [address] | [address] | | | TESTS | | | | + + + + + documented in this encounter Visit Diagnoses + + | Diagnosis | + + | Acute myeloid leukemia (AML), M4 (HCC)- primary induction failure | + + | 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HCC) Bone marrow replaced by transplant | + + documented in this encounter Administered Medications + +--------+ + +------+ + | Medication Order | MAR | Action | Dose | Rate | Site | | | Action | Date | | | | + +--------+ + +------+ + | heparin 10 unit/mL IV flush | Given | 18 | 50 Units | | Central | | syringe 50 Units 50 Units, | | 16 9:45 | | | Line | | Intracatheter, NEEDED, | | AM PDT | | | | | Starting Sun09/24/15 at 0811, | | | | | | | Until Sun09/24/15 at 1632, line | | | | | | | patency | | | | | | + +--------+ + +------+ + +-------+ + +---+ + | Given | 09/24/19 | 50 Units | | Central | | | 16 8:34 | | | Line | | | AM PDT | | | | +-------+ + +---+ + | Given | 09/24/19 | 50 Units | | Central | | | 16 8:33 | | | Line | | | AM PDT | | | | +-------+ + +---+ + +---+---+ | | | +---+---+ + +---------+ +-----+---+ + | magnesium sulfate in water IV | New Bag | 09/24/19 | 2 g | | Central | | (RTU) 2 g 2 g, intravenous, | | 16 8:35 | | | Line | | ONCE, 1 dose, 09/24/15 at 0815 | | AM PDT | | | | + +---------+ +-----+---+ + +---+---+ | | | +---+---+ documented in this encounter"
--- OUTSIDE RECORDS SUMMARY | ~2019-05-17 | XMS | Encounter Summary ---
Demographics + + + | Address | [address] | | | [place] [address] | + + + | Home Phone | | + + + | Preferred Language | Unknown | + + + | Marital Status | | + + + | Adventist Affiliation | SPI | + + + [...] Team Providers + +------+ + | Care Audiovisual Lead Technician Name | Role | Phone | [...] Description | +--------+--------+ + + + | 01/13/ | Refill | Center for | Kyung, | Refill Request | | 2016 | | Hematologic | [address]IA[address] | | | | | Malignancies at [facility] | [address] | | | | | [address] | [address] [place], [place] | | | | | [address] Mailcode: | [address] | | | | | [facility] | [phone] | | | | | [place], | | | | | | [place] [address] | | | | | | [phone] | | | +--------+--------+ + + + [...] Rd | | | | | | [place] | | | | | | [address] | | | | | | [phone] | | | | | | | | +--------+---------+ + + + documented as of this encounter Visit Diagnoses Not on filedocumented in this encounter"
--- OUTSIDE RECORDS SUMMARY | ~2019-05-17 | XMS | Encounter Summary ---
Demographics + + + | Address | [address] | | | [place] [address] | + + + | Home Phone [...] + + + | Author | [facility] | + + + | Organization | [facility] | + + + | Address | Unknown | + + + | Phone | Unavailable | + + + Support + + +---------+ + | Name | Relationship | Address | Phone | + + +---------+ + | Gabriel Kelly | ECON | Unknown | | + + +---------+ + Care Team Providers + +------+ + | Care Cloth Finishing Range Back Tender Name | Role | Phone | + +------+ + | Zayda Hinton | PCP | | + +------+ + Encounter Details +--------+ + + + + | Date | Type | Department | Care Team | Description | +--------+ + + + + | 09/21/ | Pharmacy | Specialty Pharmacy | | | | 2015 | Visit | Services [address] | | | | | | [address] | | | | | | [place], [place] | | | | | | [address] | | | | | | [phone] | | | +--------+ + + + [...] 2019 | Visit | Malignancy | [address] [facility] | | | | | | [address] | | | | | | [place], [place] | | | | | | [address] | | | | | | [phone] | | | | | | | | +--------+---------+ + + + documented as of this encounter Visit Diagnoses Not on filedocumented in this encounter"
--- OUTSIDE RECORDS SUMMARY | ~2019-05-17 | XMS | Encounter Summary ---
Demographics + + + | Address | [address] | | | [place] [address] | + + + | Home Phone [...] Team Providers + +------+ + | Care Legal Archivist Name | Role | Phone | + +------+ + | Zayda Hinton | PCP | | + +------+ + Encounter Details +--------+ + + + + | Date | Type | Department | Care Team | Description | +--------+ + + + + | 10/17/ | Pharmacy | Specialty Pharmacy | | | | 2016 | Visit | Services [address] | | | | | | [address] | | | | | | [place], [place] | | | | | | [address] | | | | | | [phone] | | | +--------+ + + + [...] 2019 | Visit | Malignancy | [address] [facility] | | | | | | [address] | | | | | | [place], [place] | | | | | | [address] | | | | | | [phone] | | | | | | | | +--------+---------+ + + + documented as of this encounter Visit Diagnoses Not on filedocumented in this encounter"
--- OUTSIDE RECORDS SUMMARY | ~2019-05-17 | XMS | Encounter Summary ---
Demographics + + + | Address | [address] | | | [place] [address] | + + + | Home Phone | | + + + | Preferred Language | Unknown | + + + | Marital Status | | + + + | Anabaptism Affiliation | SPI | + + + [...] Team Providers + +------+ + | Care Employment Service Specialist Name | Role | Phone | + +------+ + | Zayda Hinton | PCP | | + +------+ + Encounter Details +--------+ + + + + | Date | Type | Department | Care Team | Description | +--------+ + + + + | 01/28/ | Pharmacy | Specialty Pharmacy | | | | 2015 | Visit | Services [address] | | | | | | [address] | | | | | | [place], [place] | | | | | | [address] | | | | | | [phone] | | | +--------+ + + + [...] 2019 | Visit | Malignancy | [address] [facility] | | | | | | [address] | | | | | | [place], [place] | | | | | | [address] | | | | | | [phone] | | | | | | | | +--------+---------+ + + + documented as of this encounter Visit Diagnoses Not on filedocumented in this encounter"
--- OUTSIDE RECORDS SUMMARY | ~2019-05-17 | XMS | Encounter Summary ---
Demographics + + + | Address | [address] | | | [place] [address] | + + + | Home Phone [...] Team Providers + +------+ + | Care Acting Professor Name | Role | Phone | + +------+ + | No Pcp Per Patient | PCP | Unavailable | + +------+ + Reason for Referral Consultation (Routine) +--------+--------+ + + + + | Status | Reason | Specialty | Diagnoses / | Referred By | Referred To | | | | | Procedures | Contact | Contact | +--------+--------+ + + + + | Closed | | Reproductive | Diagnoses | Jose, | c | | | | Endocrinology | S/P | Yari Jones MD | Andrology Lab | | | | /Infertility | allogeneic | [address] | [address] | | | | | bone marrow | [address] | [address] | | | | | transplant | [address] | Mailcode: | | | | | ([facility]) | [place], [place] | [facility] | | | | | Procedures | [address] | for Health | | | | | CONSULT TO | Phone: | and Healing, | | | | | REPRODUCTIVE | [phone] | Building [address], | | | | | MEDICINE | Fax: | 10th Floor | | | | | | [phone] | [facility] [place] | | | | | | | [address] | | | | | | | Phone: | | | | | | | [phone] | | | | | | | Fax: | | | | | | | [phone] | +--------+--------+ + + + + Encounter Details +--------+ + + + + | Date | Type | Department | Care Team | Description | +--------+ + + + + | 12/07/ | MyChart | [facility] | Yari Garcia MD | fertility quesiton | | 2017 | Encounter | Hematologic | [address] | | | | | Malignancies at | [address] | | | | | [facility] | [place], [place] | | | | | [address] | [address] | | | | | [address] Mailcode: | [phone] | | | | | [facility] [address] | | | | | | [facility] [place], | | | | | | [place] [address] | | | | | | [phone] | | | +--------+ + + + [...] 2019 | Visit | Malignancy | [address] [facility] | | | | | | [address] | | | | | | [place], [place] | | | | | | [address] | | | | | | [phone] | | | | | | | | +--------+---------+ + + + + +------+--------+ + + | Name | Type | Priori | Associated Diagnoses | Order Schedule | | | | ty | | | + +------+--------+ + + | SPERM COUNT | Lab | Routin | S/P allogeneic | Ordered: 12/07/2016 | | | | e | bone marrow | | | | | | transplant (HCC) | | + +------+--------+ + + | SEMEN ANALYSIS | Lab | Routin | S/P allogeneic | Ordered: 12/07/2016 | | CLINICAL REPORT - | | e | bone marrow | | | ANDROLOGY LAB | | | transplant (HCC) | | + +------+--------+ + + documented as of this encounter Visit Diagnoses + + | Diagnosis | + + | 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
--- OUTSIDE RECORDS SUMMARY | ~2019-05-17 | XMS | Encounter Summary ---
Demographics + + + | Address | [address] | | | [place] [address] | + + + | Home Phone [...] Team Providers + +------+ + | Care Magnesium Mill Operator Name | Role | Phone | + +------+ + | Zayda Hinton | PCP | | + +------+ + Reason for Visit +---------+ + | Reason | Comments | +---------+ + | Post Op | | +---------+ + Encounter Details +--------+---------+ + + + | Date | Type | Department | Care Team | Description | +--------+---------+ + + + | 01/06/ | Office | Orthopaedics at | Kel Calvin, | Avascular necrosis | | 2019 | Visit | [facility] [address] | Janette Ruiz PA-C [address] | of bone of right hip | | | | Ave Mailcode: [id number] | [address] | ([facility] (Primary Dx) | | | | [facility] | [place], [place] | | | | | and Healing, | [address] | | | | | [facility] | [phone] | | | | | Floor [place], [place] | | | | | | [address] | | | | | | [phone] | | | +--------+---------+ + + + [...] Temperature | 36.8 C (98.2 F) | 01/06/2019 9:00 AM | | | | | PDT [...] Weight | 77.1 kg (170 lb) | 01/06/2019 9:00 AM | | | | | PDT | | + + + + + | Height | 188 cm (6' 2") | 01/06/2019 9:00 AM | | | | | PDT | | + + + + + | Body Mass Index | 21.83 | 01/06/2019 9:00 AM | | | | | PDT | | + + + + + documented in this encounter Progress Notes Janette Claire PA-C - 01/06/2019 9:05 AM PDTDiagnosis: AML s/p bone marrow transplant AVN bilateral hips Left hip pain Procedure: Left total hip arthroplasty 09/07/16 Right total hip arthroplasty 12/19/18 History: Khurram Kelly is a 28 y.o. male 2 weeks s/p right total hip arthroplasty. Curr ently he is WBAT on his right leg with crutches for assistance. Pain is well-controlled with out narcotics. No problems with incision, fevers or chills. he is on aspirin for DVT prophyl axis. Exam: General: Alert and oriented, no distress Temp 36.8 C (98.2 F) | Ht 1.88 m (6' 2") | Wt 77.1 kg (170 lb) | BMI 21.83 kg/m | BSA 2.01 m Musk: Exam of the right hip shows incision healing well, no signs of infection. Calf soft a nd non tender. Active ankle DF/PF. SILT Pathology: AVN A/P: Khurram Kelly is a 28 y.o. male 2 weeks s/p R CHRISTIE - Discussed pathology with patient. - Pt to be WBAT, posterior hip precautions - Complete course of ASA as prescribed for DVT prophylaxis. - F/U in 4 weeks or sooner if problems. - Advised pt to call or return to clinic for any development of fevers/chills, redness or d rainage from wound. - Imaging studies to be done prior to next visit 2 views R hip with AP pelvis. JANETTE CALVIN PA-C ORTHOPAEDICS AT [facility] [address] Mailcode: [address] [place] [address] documented i n this encounter Plan of Treatment +--------+---------+ + + + | Date | Type | Specialty | Care Team | Description | +--------+---------+ + + + | 05/19/ | Lab | Phlebotomy | | | | 2019 | | | | | +--------+---------+ + + + | 11/11/ | Office | Hematology | Yari Garcia MD | | | 2019 | Visit | Malignancy | [address] [facility] | | | | | | [address] | | | | | | [place], [place] | | | | | | [address] | | | | | | [phone] | | | | | | | | +--------+---------+ + + + documented as of this encounter Visit Diagnoses + + | Diagnosis | + + | Avascular necrosis of bone of right hip (HCC) - Primary | + + documented in this encounter
--- OUTSIDE RECORDS SUMMARY | ~2019-05-17 | XMS | Encounter Summary ---
Demographics + + + | Address | [address] | | | [place] [address] | + + + | Home Phone [...] Team Providers + +------+ + | Care Sales Representative Business Courses Name | Role | Phone | + +------+ + | Pending Pcp Addition | PCP | Unavailable | + +------+ + Reason for Visit + + + | Reason | Comments | + + + | Transplant follow-up | | + + + | Chemotherapy [...] | | | | | | Rd [place], | | | | | | | [place] | | | | | | | [address] | | | | | | | Phone: | | | | | | | [phone] | | | | | | | Fax: | | | | | | | [phone] | +--------+--------+ + + + + Encounter Details +--------+---------+ + + + | Date | Type | Department | Care Team | Description | +--------+---------+ + + + | 01/23/ | Office | Center for | Aspen Cummins FNP | S/P allogeneic bone | | 2016 | Visit | Hematologic | [address] | marrow transplant | | | | Malignancies at | [address] | (HCC) (Primary Dx); | | | | [facility] | [place], [place] | Acute myeloid | | | | [address] | [address] | leukemia (AML), M4 | | | | Debi Tao Mailcode: | [phone] | (HCC)- primary | | | | [id number] [address] | | induction failure | | | | [place], | | | | | | [place] [address] | | | | | | [phone] | | | +--------+---------+ + + + [...] + + + | Blood Pressure | 127/85 | 01/24/2016 8:26 AM | | | | | PDT | | + + + + + | Pulse | 71 | 01/24/2016 8:26 AM | | | | | PDT | | + + + + + | Temperature | 36.7 C (98.1 F) | 01/24/2016 8:26 AM | | | | | PDT | | + + + + + | Respiratory Rate | 16 | 01/24/2016 8:26 AM | | | | | PDT | | + + + + + | Oxygen Saturation | 100% | 01/24/2016 8:26 AM | | | | | PDT | | + + + + + | Inhaled Oxygen | - | - | | | Concentration | | | | + + + + + | Weight | 88.7 kg (195 lb 8.8 | 01/24/2016 8:26 AM | | | | oz) | PDT | | + + + + + | Height | - | - | | + + + + + | Body Mass Index | 25.28 | 08/18/2015 4:35 PM | | | | | PST | | + + + + + documented in this encounter Patient Instructions Patient Instructions Aspen Cummins FNP - 01/24/2016 9:49 AM PDT1. Decrease prednisone to 10 mg by mouth every other day alternating with 5 mg by mouth every other day. 2. If you continue to feel well overall, decrease prednisone to 5 mg by mouth every day be ginning 01/31/16 3. Stop posaconazole 4. Stop magnesium. We'll check your magnesium levels and if they become low again, we'll restart. 5. Continue to eat well, drink at least 2 liters of fluid every day and be active. 6. Return to clinic daily this week for azacitidine along with pentamidine on Sunday 7. Repeat labs on Sunday, then follow up with Yari Garcia MD on 02/07/16 or sooner as needed. 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 He was evaluated at [facility] ED on 06/[address] angiogram negative [...] acute myelomonocytic leukemia. He was referred to [facility] for further evaluation and man agement of his newly dx'd AML. Pt was admitted to [facility] on 05/26/15. Peripheral blood was sent [...] CD34, variable CD56, variable CD117, and dim [id number] mickey; promonocyte immunophenotype (70% by flow): CD11b, [...] durin g taper. He is currently day +150 s/p transplant, day 29, c3 of azacitidine and returns to clinic to day for scheduled follow-up. Interim History: Khurram was most recently evaluated in [facility] by me on 01/13/16. He and his were in [place] this weekend visiting [facility] and family. He golfed 18 holes, walked a lot. Notes muscle soreness in his shins and calv es, BUE. No recurrence of his prior knee pain. Appetite is great, eating well without c/o N /V/D. Mild intermittent cough, resolving. Review of Systems Constitutional: Negative for fever, chills and malaise/fatigue. HENT: Negative for headaches, congestion and sore throat. Respiratory: Positive for cough. Negative for sputum production and shortness of breath. Cardiovascular: Negative for chest pain and leg swelling. Gastrointestinal: Positive for nausea (very short-lived, resolves with rest). Negative for vomiting, abdominal pain and diarrhea. Skin: Negative for rash. Neurological: Negative for [...] 1 capsule by mouth three times daily. OLANZapine (ZYPREXA) 10 mg oral tablet Take 1 tablet by mouth once daily at bedtime. omeprazole 20 mg oral capsule,delayed release(DR/EC) Take 1 capsule by mouth before babak akfast. posaconazole DR 100 mg oral tablet,delayed release (DR/EC) Take 3 tablets by mouth once daily. predniSONE 10 mg oral tablet Take 1 tablet by mouth once daily. tacrolimus 0.5 mg oral capsule Take 0.5 mg (one capsule) by mouth twice daily No current facility-administered medications for this visit. Facility-Administered Medications Ordered in Other Visits Medication Dose Route Frequency Provider Last Rate Last Dose azaCITIDine (VIDAZA) 70 mg in NaCl 0.9 % IV 32 mg/m2 (Treatment Plan Actual) intraveno us ONCE Yari Garcia MD ondansetron (ZOFRAN) tablet 8 mg 8 mg oral ONCE Yari Garcia MD potassium chloride SR (K-DUR) tablet 40 mEq 40 mEq oral ONCE Yari Garcia MD Allergies Allergen Reactions Chlorhexidine Towelette Rash PAVAN cloths - ok to use Chloraprep for dresssing change per pt. Filed Vitals: 01/24/2016 8:26 AM Weight: 88.7 kg (195 lb 8.8 oz) BP: 127/85 Pulse: 71 Temp: 36.7 C (98.1 F) TempSrc: Oral Resp: 16 SpO2: 100% PainSc: 02 - Mild PainLoc: Generalized BMI: 25.28 kg/(m^2) Physical Exam Constitutional: He is well-developed, [...] Mood and affect normal. Vitals reviewed. CVC: 3L Neostar intact to R ant chest wall without erythema, induration Lab Results Component Value Date WBC 8.6 01/24/2016 HB 13.3 01/24/2016 HCT 38.6 01/24/2016 PLT 86 01/24/2016 MCV 104.9 01/24/2016 RDW 60.3 11/22/2015 Lab Results Component Value Date BICARB 24 01/24/2016 TBILI 0.5 01/24/2016 CA 9.5 01/24/2016 CL 104 01/24/2016 CR 0.9 01/24/2016 GLU 112* 01/24/2016 AP 75 01/24/2016 TP 7.1 01/24/2016 BUN 12 01/24/2016 ALB 4.0 01/24/2016 AST 50* 01/24/2016 NA 139 01/24/2016 K 3.4 01/24/2016 ALT 138* 01/24/2016 Assessment/Plan: 1. Hematology: Khurram Kelly is currently day +150 s/p tBuCy-conditioned unrel ated donor PBSC transplant [...] He began maintenance azacitidine on 11/01/15, currently c3, day 2 9. Peripheral blood counts WNL aside from slowly improving thrombocytopenia. Continues with no evidence of disease by peripheral smear. --> continue CBC q1 week during initial 1-2 weeks of each cycle --> begin c4 azacitidine [32 mg/m2 IV daily x 5 days] today --> plan to complete 6 cycles of post-transplant azacitidine due to active disease at time of transplant --> repeat marrow studies after c6 of azacitidine 2. Atrwd-na-Jdww Disease: Skin bx due to mild rash [...] 10 mg po daily over 6 days. Remains asymptomatic with no evidence of active GvHD. --> decrease prednisone to 10 mg po every other day alt with 5 mg po every other day --> if pt remains asymptomatic, decrease prednisone to 5 mg po daily on 01/31/16 --> continue tacrolimus 0.5 mg bid --> continue oral non-absorbables 3. Infectious Disease: Afebrile without localizing s/s infection. He continues prophylactic posaconazole, acyclovir and monthly pentamidine. Completed a treatment course of valgancicl ovir for CMV reactivation on 12/16/15. His most recent CMV PCR on 01/13/16 remains undetected. I mmune reconstitution panel collected 11/22/15 showed normal total T cells with increased CD8+ T cell subsets, normal total NK cells, decreased B cells with decreased margarita B cells and minimal immune activation with CD4 count 385. Post transplant vaccines currently on hold due to azacitidine maintenance therapy. --> continue acyclovir, monthly pentamidine (due 01/28/16) --> d/c posaconazole --> due to CMV reactivation prior to day +100, monitor PCRs q1-2 weeks through day +270 Lab Results Component Value Date CMVQUANTPCR Undetected 01/13/2016 CMVQUANTPCR Undetected 01/03/2016 CMVQUANTPCR Undetected 12/27/2015 CMVQUANTPCR Undetected 12/23/2015 4. Fluid, Electrolyte and Nutrition: Appetite remains good, feels he's eating well with allegra quate po fluid intake. Continues with intermittent short-lived nausea, resolves with Rest. No antiemetics required. His electrolytes are reviewed and are within acceptable limits. Pt states he ran out of oral magnesium, took a few pills last night but has not dosed x 5 days --> continue a well balanced diet --> maintain hydration --> d/c po Mg+Pro supplements; restart po Mg++ if hypomagnesemic 5. Cardiovascular: Pretransplant TTE completed 08/10/15 showed a LVEF of 55-60%. 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 --> no change in meds indicated today --> anticipate HTN will improve as tacrolimus tapers 6. Follow up --> RTC daily through 01/28/16 for azacitidine --> repeat labs on 01/31/16 --> RTC to f/u with Yari Garcia MD on 02/07/16, sooner prORLY [facility] AT [address] Mailcode: [place] [address] documented in this enc ounter [...] Rd | | | | | | [place], [place] | | | | | | [address] | | | | | | [phone] | | | | | | | [...]
--- OUTSIDE RECORDS SUMMARY | ~2019-05-17 | XMS | Encounter Summary ---
Demographics + + + | Address | [address] | | | [place] [address] | + + + | Home Phone [...] Team Providers + +------+ + | Care Seal Delivery Vehicle Officer Name | Role | Phone | [...] | | | | | achieved | [place], [place] | [facility] | | | | | remission | [address] | [place] | | | | | | Phone: | [facility] | | | | | Procedures | [phone] | [place], [place] | | | | | Post BMT | Fax: | [address] | | | | | Auth to | [phone] | Phone: | | | | | included | | [phone] | | | | | facility, | | Fax: | | | | | diagnostics, | | [phone] | | | | | office | [...] Saunders PA-C) | | | | [place], | | | | | | [place] [address] | | | | | | [phone] | | | +--------+ + + + [...] and instructed to check out at front sight attacher when leaving. Pricilla Guy, RN documented in [...] Hospital | | | | | | [facility] | | | | | | [place], [place] | | | | | | [address] | | | | | | [phone] | | | | | | | [...] | | [facility] | | PDT | ([facility])- primary | | | | | | induction failure | | + +--------+ + + + | NURSING | Routin | 10/14/2015 | Acute myeloid | | | COMMUNICATION #2 - | e | 11:20 AM | leukemia (AML), M4 | | | [facility] | | PDT | ([facility])- primary | | | | | | induction failure | | + +--------+ + + + | NURSING | Routin | 10/14/2015 | Acute myeloid | | | COMMUNICATION #1 - | e | 11:20 AM | leukemia (AML), M4 | | | [facility] | | PDT | ([facility])- primary | | | | | | induction failure | | + +--------+ + + + | TREATMENT PARAMETERS | Routin | 10/14/2015 | Acute myeloid | | | #1 - [place] | e | 11:20 AM | leukemia (AML), M4 | | | | | PDT | ([facility])- primary | | | | | | induction failure | | + +--------+ + + + | TREATMENT PARAMETERS | Routin | 10/14/2015 | Acute myeloid | | | #1 - [facility] | e | 11:20 AM | leukemia (AML), M4 | | | | | PDT | ([facility])- primary | | | | | | induction failure | | + +--------+ + + + | BMP + MAG, POC CHM | Urgent | 10/14/2015 | Acute myeloid | Results for this | | | | 11:03 AM | leukemia (AML), M4 | procedure are in the | | | | PDT | ([facility])- primary | results section. | | | [...] | | | PDT | ([facility])- primary | results section. | | | [...] | | TOTAL,BILI | | PDT | ([facility])- primary | results section. | | DIRECT,ALK [...] | | | PDT | ([facility])- primary | results section. | | | [...] | | | PDT | ([facility])- primary | results section. 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 | | | | | | ([facility]) | | + +--------+ + + + [...] [facility] | [address] | [place], [place] | | | [facility] | [address] | [address] | | | TESTS | | | [...] [place] | | | | | | [facility] | | | | | | [...] [facility] | [address] | [place], [place] | | | [facility] | [address] | [address] | | | TESTS | | | [...] [facility] | [address] | [place] [address] | | | SERVICES, SPECIAL | PARK [...] | + + + + + | [facility] | [address] | [place] [address] | | | SERVICES, CORE | WALLY [...] [facility] | [address] | [place] [address] | | | SERVICES, CORE | PARK [...]
--- OUTSIDE RECORDS SUMMARY | ~2019-05-17 | XMS | Encounter Summary ---
Demographics + + + | Address | [address] | | | [place] [address] | + + + | Home Phone [...] Team Providers + +------+ + | Care Electrophysiologist Name | Role | Phone | + +------+ + | Pending Pcp Addition | PCP | Unavailable | + +------+ + Reason for Visit + + + | Reason | Comments | + + + | Lab Draw | | + + + | Transfusion | Plt | + + + Benefits Check (Routine) [...] | | | | | | | [address] | | | | | | | [address] | | | | | | | [place], | | | | | | | [place] | | | | | | | [address] | | | | | | | Phone: | | | | | | | [phone] | | | | | | | Fax: | | | | | | | [phone] | +--------+--------+ + + + + Encounter Details +--------+ + + + + | Date | Type | Department | Care Team | Description | +--------+ + + + + | 08/05/ | Clinical | Center for | | Lab Draw; | | 2015 | Support | Hematologic | | Transfusion (Plt) | | | Staff | [facility] at [facility] | | | | | | [address] | | | | | | [address] [address] Mailcode: | | | | | | [id number] [place] | | | | | | [place], | | | | | | [place] [address] | | | | | | [phone] | | | +--------+ + + + [...] + + + | Blood Pressure | 103/56 | 08/05/2015 4:25 PM | | | | | PST | | + + + + + | Pulse | 56 | 08/05/2015 4:25 PM | | | | | PST | | + + + + + | Temperature | 36.7 C (98.1 F) | 08/05/2015 4:25 PM | | | | | PST | | + + + + + | Respiratory Rate | 16 | 08/05/2015 4:25 PM | | | | | PST [...] encounter Progress Notes Jhon Leblanc MA - 08/06/2015 8:55 AM PSTFor the CBC POC resulting on 08/05/2015 1647 , the flag comment should only include WBC Abn Scat. Paco Leblanc CMA Oj, Cherri Beverly RN - 08/05/2015 5:01 PM PST Power PICC accessed per protocol. Good blood return noted. Appropriate waste discarded. Labs drawn and sent. Power PICC pulse flushed with 20 mL NS. Patient scheduled for provide r visit today with Dr. Garcia. Post platelet count listed below. Lab Results Component Value Date PLT 9 08/05/2015 Orders to transfuse platelet product for a [...] ONC Lines & Tra nsfusions doc flowsheet. Pt to return to clinic Sunday for platelet check or call before with any bleeding issues. Pt ambulated with and discharged to home. VSS. documented in this enc ounter [...] Rd | | | | | | [place], [place] | | | | | | [address] | | | | | | [phone] | | | | | | | | +--------+---------+ + + + documented as of this encounter Procedures + +--------+ + + + | Procedure Name | Priori | Date/Time | Associated Diagnosis | Comments | | | ty | | | | + +--------+ + + + | CBC+DIFF,POC | Routin | 08/05/2015 | Acute myeloid | Results for this | | | e | 4:47 PM | leukemia (AML), M4 | procedure are in the | | | | PST | ([facility]) | results section. | + +--------+ + + + | PRODUCT - PLATELET | Routin | 08/05/2015 | Acute myeloid | Results for this | | PHERESIS | e | 2:05 PM | leukemia (AML), M4 | procedure are in the | | LEUKOREDUCED | | PST | ([facility]) | results section. | + +--------+ + + + | CBC+DIFF,POC | Routin | 08/05/2015 | Acute myeloid | Results for this | | | e | 2:02 PM | leukemia (AML), M4 | procedure are in the | | | | PST | ([facility]) | results section. | + +--------+ + + + | CMP, POC (BMP+LFT) | Routin | 08/05/2015 | Acute myeloid | Results for this | | | e | 2:02 PM | leukemia (AML), M4 | procedure are in the | | | | PST | ([facility]) | results section. | + +--------+ + + + | POTASSIUM, PLASMA | Urgent | 08/05/2015 | Acute myeloid | Results for this | | | | 1:43 PM | leukemia (AML), M4 | procedure are in the | | | | PST | ([facility]) | results section. | + +--------+ + + + | LDH TOTAL, PLASMA | Routin | 08/05/2015 | Acute myeloid | Results for this | | | e | 1:43 PM | leukemia (AML), M4 | procedure are in the | | | | PST | ([facility]) | results section. | + +--------+ + + + | TREATMENT PARAMETERS | Routin | 08/05/2015 | 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 | 1:42 PM | leukemia (AML), M4 | | | | | PST | ([facility]) | | + +--------+ + + + | TREATMENT PARAMETERS | Routin | 08/05/2015 | 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 | 1:42 PM | leukemia (AML), M4 | | | | | PST | ([facility]) | | + +--------+ + + + | TREATMENT PARAMETERS | Routin | 08/05/2015 | 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 | 1:42 PM | leukemia (AML), M4 | | | | | PST | ([facility]) | | + +--------+ + + + | TREATMENT PARAMETERS | Routin | 08/05/2015 | 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 | 1:42 PM | leukemia (AML), M4 | | | | | PST | (HCC) | | + +--------+ + + + | TREATMENT PARAMETERS | Routin | 08/05/2015 | 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 | 1:42 PM | leukemia (AML), M4 | | | | | PST | (HCC) | | + +--------+ + + + | NURSING | Routin | 08/05/2015 | Acute myeloid | | | COMMUNICATION #3 - | e | 1:42 PM | leukemia (AML), M4 | | | [facility] | | PST | (HCC) | | + +--------+ + + + | NURSING | Routin | 08/05/2015 | Acute myeloid | | | COMMUNICATION #2 - | e | 1:42 PM | leukemia (AML), M4 | | | [facility] | | PST | (HCC) | | + +--------+ + + + | NURSING | Routin | 08/05/2015 | Acute myeloid | | | COMMUNICATION #1 - | e | 1:42 PM | leukemia (AML), M4 | | | [facility] | | PST | (HCC) | | + +--------+ + + + | TREATMENT PARAMETERS | Routin | 08/05/2015 | Acute myeloid | | | #1 - [place] | e | 1:42 PM | leukemia (AML), M4 | | | | | PST | (HCC) | | + +--------+ + + + | TREATMENT PARAMETERS | Routin | 08/05/2015 | Acute myeloid | | | #1 - [facility] | e | 1:42 PM | leukemia (AML), M4 | | | | | PST | (HCC) | | + +--------+ + + + documented in this encounter Results CBC+DIFF,POC (08/05/2015 4:47 PM PST) + + + + + + | Component | Value | Ref Range | Performed | Pathologist | | | | | At | Signature | + + + + + + | WBC POC | 0.4 (L) | 4.4 - 11.0 | [facility] - | | | | | 10*3/uL | [facility] | | | | | | [facility] | | | | | | OF CARE | | | | | | TESTS | | + + + + + + | RBC POC | 2.56 (L) | 4.50 - 6.00 | [facility] - | | | | | 10*6/uL | [place] | | | | | | [facility] | | | | | | OF CARE | | | | | | TESTS | | + + + + + + | HGB POC | 7.3 (L) | 13.5 - 17.5 | [facility] - | | | | | g/dL | [place] | | | | | | [facility] | | | | | | OF CARE | | | | | | TESTS | | + + + + + + | HCT POC | 20.2 (L) | 41.0 - 53.0 % | [facility] - | | | | | | [place] | | | | | | [facility] | | | | | | OF CARE | | | | | | TESTS | | + + + + + + | MCV POC | 78.9 (L) | 80.0 - 96.0 fL | [...] + + + | MCHC POC | 36.1 | 33.0 - 35.5 | [facility] - | | | | | g/dL | [place] | | | | | | [facility] | | | | | | OF CARE | | | | | | TESTS | | + + + + + + | RDW SD, POC | 30.4 (L) | 35.1 - 46.3 fL | [facility] - | | | | | | [place] | | | | | | [facility] | | | | | | OF CARE | | | | | | TESTS | | + + + + + + | PLT POC | 9 (AA) | 150 - 400 | [facility] - | | | | | 10*3/uL | [place] | | | | | | [facility] | | | | | | OF CARE | | | | | | TESTS | | + + + + + + | MPV POC | 11.6 | 9.7 - 12.3 fL | [facility] [...] + + + | LYMPH% POC | 65.9 (H) | 18 - 42 % | [facility] - | | | | | | [place] | | | | | | [facility] | | | | | | OF CARE | | | | | | TESTS | | + + + + + + | MONO %, POC | 31.7 (H) | 3.5 - 9.0 % | [...] [facility] | | | | | | [facility], POINT | | | | | | OF CARE | | | | | | TESTS | | + + + + + + | BASO %, POC | 2.4 (H) | 0.0 - 2.0 % | [...] [facility] | | | | | | [facility], [...] [facility] | [address] | [place], [place] | | | [facility] | [address] | [address] | | | TESTS | | | | + + + + + PRODUCT - PLATELET PHERESIS LEUKOREDUCED (08/05/2015 2:05 PM PST) + + + + + [...] + + + + | PRODUCT | [id number] | | [facility] | | | UNIT [...] + + + + | EXPIRATION | [id number] | | [facility] | | | DATE [...] + + + + | BLOOD | [id number] | | [facility] | | | PRODUCT [...] + + | [facility] | [address] | [place] [address] | | | PATHOLOGY | [address] | | | + + + + + PHIL ALCAZAR (08/05/2015 2:02 PM PST) + +---------+ + + + | Component | Value | Ref Range | Performed | Pathologist | | | | | At | Signature | + +---------+ + + + | SODIUM, POC | 145 (H) | 134 - 143 | [facility] - | | | | | mmol/L | [place] | | | | | | [facility] | | | | | | OF CARE | | | | | | TESTS | | + +---------+ + + + | POTASSIUM, | 5.5 (H) | 3.4 - 5.0 | [facility] [...] +---------+ + + + | GLUCOSE, | 86 | 60 - 99 mg/dL | [facility] - | | | POC | | | [facility] | | | | | | [facility] | | | | | | OF CARE | | | | | | TESTS | | + +---------+ + + + | CALCIUM | 9.9 [...] + + + | ALT, CMP | 30 | 0 - 60 U/L | [facility] - | | | POC | | | [facility] | | | | | | [facility] | | | | | | OF CARE | | | | | | TESTS | | + +---------+ + + + | AST, CMP | 21 | 0 - 41 U/L | [facility] [...] [facility] | [address] | [place], [place] | | | [facility] | [address] | [address] | | | TESTS | | | | + + + + + CBC+DIFF,POC (08/05/2015 2:02 PM PST) + + + + + + | Component | Value | Ref Range | Performed | Pathologist | | | | | At | Signature | + + + + + + | WBC POC | 0.4 (L) | 4.4 - 11.0 | [facility] - | | | | | 10*3/uL | [facility] | | | | | | [place] [place] | | | | | | OF CARE | | | | | | TESTS | | + + + + + + | RBC POC | 2.80 (L) | 4.50 - 6.00 | [facility] - | | | | | 10*6/uL | [place] | | | | | | [facility] | | | | | | OF CARE | | | | | | TESTS | | + + + + + + | HGB POC | 8.0 (L) | 13.5 - 17.5 | [facility] - | | | | | g/dL | [place] | | | | | | [facility] | | | | | | OF CARE | | | | | | TESTS | | + + + + + + | HCT POC | 22.0 (L) | 41.0 - 53.0 % | [facility] - | | | | | | [place] | | | | | | [facility] PO[facility] | | | | | | OF CARE | | | | | | TESTS | | + + + + + + | MCV POC | 78.6 (L) | 80.0 - 96.0 fL | [...] + + + | MCHC POC | 36.4 | 33.0 - 35.5 | [facility] - [...] + + + | PLT POC | 6 (AA) | 150 - 400 | [facility] - | | | | | 10*3/uL | [place] | | | | | | [facility] PO[facility] | | | | | | OF CARE | | | | | | TESTS | | + + + + + + | MPV POC | ---- | 9.7 - 12.3 fL | [facility] [...] + + + | LYMPH% POC | 47.5 (H) | 18 - 42 % | [facility] - | | | | | | [place] | | | | | | [facility], POINT | | | | | | OF CARE | | | | | | TESTS | | + + + + + + | MONO %, POC | 50.0 (H) | 3.5 - 9.0 % | [...] + + | BASO %, POC | 2.5 (H) | 0.0 - 2.0 % | [...] + | CBC | WBC Abn Scat. PLT Abn | | [facility] - | | | COMMENT, | Dist. | | [facility] | | | POC [...] + + + | [facility] | [address] | [place], [place] | | | [facility] PO[facility] OF CARE | [address] | [address] | | | TESTS | | | | + + + + + POTASSIUM, PLASMA (08/05/2015 1:43 PM PST) + +---------+ + + + | Component | Value | Ref Range | Performed | Pathologist | | | | | At | Signature | + +---------+ + + + | POTASSIUM, | 4.9 | 3.4 - 5.0 | [facility] | [...] [facility] | [address] | [place] [address] | | | SERVICES, CORE | [address] | | | + + + + + LDH TOTAL, PLASMA (08/05/2015 1:43 PM PST) + +---------+ + + + | Component | Value | Ref Range | Performed | Pathologist | | | | | At | Signature | + +---------+ + + + | LD TOTAL, | 140 | <=250 U/L | [facility] | | [...] [facility] | [address] | [place] [address] | | | SERVICES, CORE | [address] | | | + + + + + documented in this encounter Visit Diagnoses + + | Diagnosis | + + | Acute myeloid leukemia (AML), M4 (HCC) - Primary | + + documented in this encounter"
--- OUTSIDE RECORDS SUMMARY | ~2019-05-17 | XMS | Encounter Summary ---
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 | Role | Phone | + +------+ + | Pending Pcp Addition | PCP | Unavailable | + +------+ + Reason for Visit +--------+ + | Reason | Comments | +--------+ + | Biopsy | | +--------+ + Office Visit - [...] | | | | | remission | [address] | [facility] | | | | | | Phone: | [facility] | | | | | Procedures | [phone] | [place], [place] | | | | | Post BMT | Fax: | [phone] | | | | | Auth to | [phone] | Phone: | | | | | included | | [phone] | | | | | facility, | | Fax: | | | | | diagnostics, | | [phone] | | | | | office | | | | | | | visits and | | | | | | | surgery | | | +--------+---------+ + + + + Encounter Details +--------+---------+ + + + | Date | Type | Department | Care Team | Description | +--------+---------+ + + + | 08/31/ | Office | [facility] for | Aspen Cummins FNP | 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 | | | | Malignancies at | [address] | remission (HCC) | | | | [facility] | [place], [place] | | | | | [address] | [address] | | | | | [address] Mailcode: | [phone] | | | | | [id number] | | | | | | [facility] [place], | | | | | | [place] [address] | | | | | | [phone] | | | +--------+---------+ + + + [...] + + + | Blood Pressure | 108/59 | 08/31/2016 9:41 AM | | | | | PST | | + + + + + | Pulse | 88 | 08/31/2016 9:41 AM | | | | | PST | | + + + + + | Temperature | 36.8 C (98.2 F) | 08/31/2016 9:41 AM | | | | | PST | | + + + + + | Respiratory Rate | 16 | 08/31/2016 9:41 AM | | | | | PST | | + + + + + | Oxygen Saturation | 100% | 08/31/2016 9:41 AM | | | | | PST | | + + + + + | Inhaled Oxygen | - | - | | | Concentration | | | | + + + + + | Weight | 84.1 kg (185 lb 6.4 | 08/31/2016 9:41 AM | | | | oz) | PST | | + + + + + | Height | - | - | | + + + + + | Body Mass Index | 23.17 | 08/11/2016 9:07 AM | | | | | PST | | + + + + + documented in this encounter Patient Instructions Patient Instructions Aspen Cummins FNP - 08/31/2016 10:00 AM PST1. Keep your dressing dr muniz for the next 24 hours; no shower or bath until tomorrow. 2. If you notice any signs of infection at the biopsy site (redness, tenderness, drainage ), please call the Triage nurse at [phone]. 3. Because you received sedating medication morphine), you may not drive for at least 8 h ours. 4. Increase your tacrolimus to 1 mg by mouth twice daily. Please go to the lab on the 3rd floor [facility] on Sunday for a tacrolimus level. They are open from 8:0 0 to 12:00. One of the inpatient nurse practitioners will give you a call in the afternoon with a dose adjustment. 5. I'm going to cancel your appointment with Yari Garcia MD on 09/11/16 and reschedule for the following week. I need to check with her to see when she's available that week. Electro nically signed by ORLY Yanes at 08/31/2016 10:33 AM PST documented in this encounter Progress Notes Aspen Cummins FNP - 08/31/2016 10:00 AM PST08/31/2016 [facility] Procedure Note Procedure: Bone marrow aspirate and biopsy with anxiolysis. 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 Team Pause: At 1013, prior to the beginning of the procedure the team paused to verify the patient's identity, as well as the procedure to be performed and the correct side/site. Al l equipment required was ready and available. The patient was positioned appropriately. The following team members were present during the team pause: Mini Disla CMA; ORLY Paulson. Description: Written consent for bone marrow aspirate [...] needle was repositioned. A core biopsy measuring >1 cm was obtained and submitted for morphology studies Hemostasis was achieved and a pressure dressing was applied. Pt was placed in the supine po sition. He was observed for 15 minutes post-procedure for signs of bleeding and discharged h ome into the care of his . Pt tolerated the procedure well without complications. The results of this procedure will take approximately 7 to 10 days for full analysis. Ortega lara, preliminary results should be available within the next 24 to 48 hours. ADDENDUM: Pt presented with increased rash today, ongoing intermittent nausea. Rash now ~1 9% BSA. Has been applying triamcinolone cream BID, maybe decreases erythema but distributio n has increased. Feels he's eating well despite ongoing nausea. Reviewed with Yari Garcia MD. As we would prefer to avoid steroids in this pt due to AVN requiring hip replacement douglass leonor (scheduled for 09/07/16), advised pt to increase tacrolimus to 1 mg po BID. Tacro level to be drawn in [facility] on 09/03/16 with dose adjustment per inpt team. Pt advised to contact our office should nausea increase or rash progress. ORLY Yanes [facility] AT [address] Mailcode: [id number] [place] [address] documented in this enc ounter [...] 2019 | Visit | Malignancy | [address] [facility] | | | | | | [address] | | | | | | [place], [place] | | | | | | [address] | | | | | | [phone] | | | | | | | | +--------+---------+ + + + documented as of this encounter Procedures + +--------+ + + + | Procedure Name | Priori | Date/Time | Associated Diagnosis | Comments | | | ty | | | | + +--------+ + + + | MI BONE MARROW ASP | Routin | 08/31/2016 | Acute | | | SAME DAY BIOPSY | e | 10:35 AM | myelomonocytic | | | | | PST | leukemia in | | | | | | remission (HCC) | | + +--------+ + + + | MI BONE MARROW BX, | Routin | 08/31/2016 | Acute | | | NEEDLE/TROCAR | e | 10:35 AM | myelomonocytic | | | | | PST | leukemia in | | | | | | remission (HCC) | | + +--------+ + + + | ENGRAFTMENT | Routin | 08/31/2016 | Acute | | | POST-TRANSPLANT, | e | 8:47 AM | myelomonocytic | | | BONE MARROW (LABEL) | | PST | leukemia in | | | | | | remission (HCC) | | + +--------+ + + + | GENETRAILS AML/MDS | Routin | 08/31/2016 | Acute | Results for this | | GENE MUTATION PANEL, | e | 8:47 AM | myelomonocytic | procedure are in the | | BM (LABEL) | | PST | leukemia in | results section. | | | | | remission (HCC) | | + +--------+ + + + | CYTOGENETICS BONE | Routin | 08/31/2016 | Acute | Results for this | | MARROW CHROMOSOME | e | 8:47 AM | myelomonocytic | procedure are in the | | ANALYSIS (W/FISH) | | PST | leukemia in | results section. | | | | | remission (HCC) | | + +--------+ + + + | LEUKEMIA/LYMPHOMA | Routin | 08/31/2016 | Acute | | | MARKERS - BONE | e | 8:47 AM | myelomonocytic | | | MARROW | | PST | leukemia in | | | | | | remission (HCC) | | + +--------+ + + + | ENGRAFTMENT | Routin | 08/31/2016 | Acute | Results for this | | POST-TRANSPLANT, | e | | myelomonocytic | procedure are in the | | BONE MARROW (PP) | | | leukemia in | results section. | | | | | remission (HCC) | | + +--------+ + + + | ENGRAFTMENT | Routin | 08/31/2016 | Acute | Results for this | | POST-TRANSPLANT, | e | | myelomonocytic | procedure are in the | | BONE MARROW | | | leukemia in | results section. | | | | | remission (HCC) | | + +--------+ + + + | GENETRAILS AML/MDS | Routin | 08/31/2016 | Acute | Results for this | | GENE MUTATION PANEL, | e | | myelomonocytic | procedure are in the | | BM (PP) | | | leukemia in | results section. | | | | | remission (HCC) | | + +--------+ + + + | GENETRAILS AML/MDS | Routin | 08/31/2016 | Acute | Results for this | | GENE MUTATION PANEL, | e | | myelomonocytic | procedure are in the | | BM | | | leukemia in | results section. | | | | | remission (HCC) | | + +--------+ + + + | CYTOGENETICS BONE | Routin | 08/31/2016 | Acute | Results for this | | MARROW CHROMOSOME | e | | myelomonocytic | procedure are in the | | ANALYSIS (W/FISH) | | | leukemia in | results section. | | (PP) | | | remission (HCC) | | + +--------+ + + + | LEUKEMIA/LYMPHOMA | Routin | 08/31/2016 | Acute | Results for this | | MARKERS - BONE | e | | myelomonocytic | procedure are in the | | MARROW (PP) | | | leukemia in | results section. | | | | | remission (HCC) | | + +--------+ + + + | LEUKEMIA/LYMPHOMA | Routin | 08/31/2016 | Acute | Results for this | | MARKERS - BONE | e | | myelomonocytic | procedure are in the | | MARROW | | | leukemia in | results section. | | | | | remission (HCC) | | + +--------+ + + + | CYTOGENETICS BONE | Routin | 08/31/2016 | Acute | Results for this | | MARROW CHROMOSOME | e | | myelomonocytic | procedure are in the | | ANALYSIS (W/FISH) | | | leukemia in | results section. | | | | | remission (HCC) | | + +--------+ + + + | IMMUNOLOGY CASE | Routin | 08/31/2016 | | Results for this | | | e | | | procedure are in the | | | | | | results section. | + +--------+ + + + documented in this encounter Results TACROLIMUS, WHOLE BLOOD (09/03/2016 11:26 AM PST) + +-------+ + + + | Component | Value | Ref Range | Performed | Pathologist | | | | | At | Signature | + +-------+ + + + | TACROLIMUS | 5.6 | 5.0 - 15.0 | [facility] | [...] | Test performed by immunoassay using Blanton Prep Cook i2000. | [facility] | | Therapeutic range [...] | + + + + + | [facility] | [address] | [place] [address] | | | SERVICES, SPECIAL | [address] | | | | IMM + COAG | | | | + + + + + LEUKEMIA/LYMPHOMA MARKERS - BONE MARROW (LABEL) (08/31/2016 8:47 AM PST) + + | Specimen | + + | Bone marrow - Bone | | marrow structure | | (body structure) | + + + + + + + | Performing | Address | City/State/Zipcode | Phone Number | | Organization | | | | + + + + + | [facility] | [address] | [place] [address] | | | SERVICES, SPECIAL | [address] | | | | IMM + COAG | | | | + + + + + GENETRAILS AML/MDS GENE MUTATION PANEL, BM (LABEL) (08/31/2016 8:47 AM PST) + + + + + + | Component | Value | Ref Range | Performed | Pathologist | | | | | At | Signature | + + + + + + | LABEL ONLY | Please see lab report | | [facility] | | | - KDL | for [...] + + + + | [facility] | [address] , | [place] [address] | | | DIAGNOSTIC | [address] | | | | LABORATORIES | | | | + + + + + CYTOGENETICS BONE MARROW CHROMOSOME ANALYSIS (W/FISH) (LABEL) (08/31/2016 8:47 AM PST) + + + + + [...] + + + | [facility] | [address] | [place], [place] | | | DIAGNOSTIC | [address] | | | | LABORATORIES | | | | + + + + + ENGRAFTMENT POST-TRANSPLANT, BONE MARROW (LABEL) (08/31/2016 8:47 AM PST) + + | Specimen | + + | Bone marrow - Bone | | marrow structure | | (body structure) | + + + + + + + | Performing | Address | City/State/Zipcode | Phone Number | | Organization | | | | + + + + + | [facility] | [address] | [place], [place] | | | DIAGNOSTIC | [address] | | | | LABORATORIES | | | | + + + + + IMMUNOLOGY CASE (08/31/2016) + + + + + + | [...] Diagnosis:Peripheral | | | | | | blood: - Normal | | | | | | total T cells with | | | | | | relative decrease in | | | | | | CD4+ na ve cells | | | | | | - Normal total NK cells | | | | | | - Normal total B | | | | | | cells with relative | | | | | | decrease in non-switched | | | | | | memory Bcells - | | | | | | Minimal immune | | | | | | activation Case | | | | | | seen by:Otilia Spicer, | | | | | | M.Allegra / Hematopathology | | | | | | Rebecca Cain M.D., | | | | | | Ph.D. / | | | | | | Hematopathologist | | | | | | Clinical History: 26 | | | | | | year old man with acute | | | | [...] Laboratory | | | | | | Data:08/31/2016 09:35AM | | | | | | Ref | | | | | | Range & Units Value | | | | | | WHITE CELL COUNT | | | | | | 3.50 - 10.80 K/cu | | | | | | mm 7.43RED CELL | | | | | | COUNT 4.50 - 6.00 M/cu | | | | | | mm 4.46 (L)HEMOGLOBIN | | | | | | 13.5 - 17.5 g/dL | | | | | | 14.1HEMATOCRIT | | | | | | 41.0 - 53.0 % 42.1MCV | | | | | | 80.0 - 96.0 fL | | | | | | 94.4PLATELET COUNT 150 - | | | | | | 400 K/cu mm | | | | | | 240NEUTROPHIL % 50.0 | | | | | | - 70.0 % | | | | | | 57.6LYMPHOCYTE % | | | | | | 18.0 - 42.0 % | | | | | | 19.9MONOCYTE % | | | | | | 3.5 - 9.0 % 9.4 | | | | | | (H)EOS % 1.0 - 3.0 | | | | | | % 12.2 (H)BASO % | | | | | | 0.0 - 2.0 % | | | | | | 0.4NEUTROPHIL # | | | | | | 1.80 - 7.70 K/cu mm | | | | | | 4.27LYMPHOCYTE # 1.00 | | | | | | - 4.80 K/cu mm | | | | | | 1.48MONOCYTE # | | | | | | 0.10 - 0.90 K/cu mm | | | | | | 0.70EOS # 0.00 - | | | | | | 0.50 K/cu mm 0.91 | | | | | | (H)BASO # 0.00 - | | | | | | 0.10 K/cu mm 0.03 | | | | | | Flow [...] | | | | | CD4, CD8, LI3kupy,CD19, | | | | | | CD25, [...] (CD3+) | | | | | | 75.3 1108.6 | | | | | | 55-85% | | | | | | 700-0266OZ2+ CD4+ | | | | | | 28.5 | | | | | | 420.3 28-57% | | | | | | 300-0087KG9+ CD8+ | | | | | | 45.5 | | | | | | 669.7 | | | | | | 10-39% | | | | | | 200-900CD3+CD4-CD8-(Do | | | | | | ub.neg) 1.7 NA | | | | | | | | | | | | <6%CD3+CD4+8+ | | | | | | (Doub.pos) 0.3 | | | | | | NA | | | | | | <2%CD4+CD45RO- | | | | | | (na ve) 5.9 | | | | | | NA 8-50%NKT | | | | | | | | | | | | 4.3 | | | | | | <7%NK cells | | | | | | (CD56+CD3-) 8.1 | | | | | | 119.1 5-28% | | | | | | 71-499Total B-cells | | | | | | (CD19+) 13.4 | | | | | | 197.2 6-19% | | | | | | 100-500 | | | | | | | | | | | | % of B cells | | | | | | % of B-cellsIgD+ CD27- | | | | | | Na ve B-cells | | | | | | 90.5 | | | | | | 50-80%IgD+ CD27+ | | | | | | Non-switched memory B | | | | | | 0.6 | | | | | | 5-21%IgD- CD27+ | | | | | | Switched, memory B | | | | | | 2.5 | | | | | | 5-24%Activation [...] | | | | | | | %LymphsCD3+CD4+BN4uuzn | | | | | | + 0.2 | | | | | | | | | | | | <1.5%CD3+HLA-DR+ | | | | | | 2.4 | | | | | | | | | | | | <10%CD4+CD25+ | | | | | | 7.8 | | | | | | | | | | | | <7%GN6wqwl+CD69+ | | | | | | 0.5 | | | | | | <1% | | | | | | | | | | | | | | | | | | % of CD4+ T | | | | | | cellsCD4+CD25+ bright (T | | | | | | regs) 8.1 | | | | | | <10% [...] | | | | cs determined by [facility] | | | | [...] Diagnostician: | | | | | | Dylan Cain | | | | | | August,Ph.D.Hematopatholog | | | | | | istElectronically Signed | | | | | | 09/05/2016 8:31AM | | | | + + + + + + + + | Specimen | + + | | + + + + + + + | Performing | Address | City/State/Zipcode | Phone Number | | Organization | | | | + + + + + | [facility] | [address] | [place] [address] | | | PATHOLOGY | [address] | | | + + + + + LEUKEMIA/LYMPHOMA MARKERS - BONE MARROW (PP) (08/31/2016) + + + + + + | Component | Value | Ref Range | Performed | Pathologist | | | | | At | Signature | + + + + + + | HEMATOPATHO | SOURCE OF SPECIMEN:A | | [facility] | | | LOGY | Bone Marrow Aspirate - | | DEPARTMENT | | | | 1x2ml NaHep, 1x1ml | | OF | | | | EDTASOURCE OF SPECIMEN:B | | PATHOLOGY | | | | Bone Marrow ClotSOURCE | | | | | | OF SPECIMEN:C Bone | | | | | | Marrow BiopsySOURCE OF | | | | | | SPECIMEN:D Peripheral | | | | | | Blood Clinical | | | | | | History:The patient is a | | | | | | 26 year old male with | | | | | | 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 Final | | | | | | Pathologic | | | | | | Diagnosis:Peripheral | | | | | | blood: - Mild | | | | | | absolute eosinophilia | | | | | | Bone marrow | | | | | | aspirate, biopsy and | | | | | | clot: - | | | | | | Normocellular marrow | | | | | | (30%) with trilineage | | | | | | hematopoiesis - | | | | | | Marrow eosinophilia | | | | | | (~15%) - Myeloid | | | | | | blasts less than 2% | | | | | | Comment: The | | | | | | peripheral blood and | | | | | | marrow eosinophilia are | | | | | | favored to bereactive. | | | | | | Correlation with pending | | | | | | cytogenetics/molecular | | | | | | studies isrecommended. | | | | | | Case Seen | | | | | | By:Ambrose Meade | | | | | | M.D./Hematopathology | | | | | | FellowKary Ponce | | | | | | M.D./Hematopathologist | | | | | | Gross | | | | | | Description:B: Bone | | | | | | marrow clot | | | | | | | | | | | | 1.8 x 1.1 x 0.2 cmC: | | | | | | Bone marrow biopsy | | | | | | | | | | | | 1.4 x 0.3 cm(AMJ)Both | | | | | | clot and the core biopsy | | | | | | were fixed in formalin | | | | | | and the core biopsywas | | | | | | decalcified. A | | | | | | Umanzor-stained | | | | | | peripheral blood smear | | | | | | and a cytospin ofthe | | | | | | cell suspension were | | | | | | [...] show | | | | | | unremarkablemorphology. | | | | | | Neutrophils show normal | | | | | | nuclear lobation and | | | | | | cytoplasmicgranularity. | | | | | | Monocytes show mature | | | | | | morphology. No | | | | | | circulating blasts | | | | | | areidentified. The | | | | | | lymphocytes are | | | | | | heterogeneous and are | | | | | | within the | | | | | | reactivemorphologic | | | | | | spectrum. Platelets show | | | | | | normal granularity with | | | | | | occasionallarge forms | | | | | | seen. Bone Marrow | | | | | | Aspirate: The bone | | | | | | marrow aspirate smears | | | | | | contain severalcellular | | | | | | marrow particles with | | | | | | trilineage | | | | | | hematopoiesis. There is | | | | | | fullmaturation of | | | | | | myeloid and erythroid | | | | | | precursors without | | | | | | dysplasticmorphology. | | | | | | The M:E ratio is not | | | | | | increased. | | | | | | Megakaryocytes | | | | | | showpredominantly normal | | | | | | morphology. Eosinophils | | | | | | are increased (~15%) | | | | | | but shownormal | | | | | | morphology. Lymphocytes | | | | | | are not increased in | | | | | | number and | | | | | | nomorphologically | | | | | | atypical lymphocytes are | | | | | | identified. Blasts are | | | | | | notincreased and no | | | | | | atypical infiltrate is | | | | | | identified. A bone | | | | | | marrow aspirate | | | | | | differential count | | | | | | includes: Myeloid | | | | | | rgcyotwcth88.5%, | | | | | | erythroid precursors | | | | | | 25.5%, lymphocytes | | | | | | 10.5%, blasts 0.5%, | | | | | | plasmacells 0%. | | | | | | Bone Marrow Biopsy and | | | | | | Clot Section: The bone | | | | | | marrow biopsy has 1.5 | | | | | | cm ofevaluable marrow. | | | | | | Cellularity varies | | | | | | averaging ~30% and the | | | | | | composition issimilar to | | | | | | the aspirate. There is | | | | | | trilineage | | | | | | hematopoiesis. No | | | | | | atypicallymphoid cell | | | | | | clusters or sheets of | | | | | | blasts are identified. | | | | | | Megakaryocytesare normal | | | | | | in number and | | | | | | morphology. The clot | | | | | | section shows | | | | | | findingssimilar to the | | | | | | biopsy. Flow | | | | | | Cytometry Analysis: | | | | | | The analysis by flow | | | | | | cytometry on the | | | | | | marrowaspirate shows no | | | | | | increased myeloid blasts | | | | | | (less than 2%) or | | | | | | aberrantmonocyte antigen | | | | | | expression. Lymphocytes | | | | | | account for 11% of WBCs | | | | | | andinclude 70% T cells, | | | | | | 14% B cells and 11% NK | | | | | | cells. T cells show a | | | | | | reversedCD4:CD8 ratio of | | | | | | 1:0.5 without aberrant | | | | | | antigen expression. B | | | | | | cells arepolytypic by | | | | | | surface light chain | | | | | | expression. Please see | | | | | | below forantibodies | | | | | | tested. Antibodies | | | | | | Tested CD2 sCD3 | | | | | | CD4 CD5 CD7 CD8 | | | | | | CD10 [id number] CD14 | | | | | | CD15 CD16 CD19 CD20 CD33 | | | | | | [id number] CD45 CD56 CD58 | | | | | | CD64 CD71 CD117 | | | | | | [id number] sLambda | | | | | | [...] Laboratory | | | | | | Data:08/31/16 9:35 AM | | | | | | | | | | | | Ref Range & Units | | | | | | Value WHITE CELL | | | | | | COUNT 3.50 - 10.80 | | | | | | K/cu mm 7.43RED | | | | | | CELL COUNT 4.50 - 6.00 | | | | | | M/cu mm 4.46 | | | | | | (L)HEMOGLOBIN 13.5 | | | | | | - 17.5 g/dL | | | | | | 14.1HEMATOCRIT | | | | | | 41.0 - 53.0 % 42.1MCV | | | | | | 80.0 - 96.0 fL | | | | | | 94.4MCHC 33.0 - 35.5 | | | | | | g/dL 33.5RDW SD | | | | | | 35.1 - 46.3 fL | | | | | | 44.3PLATELET COUNT 150 - | | | | | | 400 K/cu mm 240MPV | | | | | | 9.7 - 12.3 fL 8.0 | | | | | | (L)NRBC% 0.0 - 0.3 | | | | | | % 0.0NRBC# | | | | | | 0.00 - 0.02 K/cu mm | | | | | | 0.00NEUTROPHIL % 50.0 | | | | | | - 70.0 % | | | | | | 57.6LYMPHOCYTE % | | | | | | 18.0 - 42.0 % | | | | | | 19.9MONOCYTE % | | | | | | 3.5 - 9.0 % 9.4 | | | | | | (H)EOS % 1.0 - 3.0 | | | | | | % 12.2 (H)BASO % | | | | | | 0.0 - 2.0 % | | | | | | 0.4IMMATURE | | | | | | GRANULOCYTE% 0.0 - | | | | | | 0.6 % 0.5Comments: | | | | | | Immature Granulocytes | | | | | | (IG) include | | | | | | metamyelocytes, | | | | | | myelocytes | | | | | | andpromyelocytes. | | | | | | Bands are not included | | | | | | in the IG count. Bands | | | | | | are includedin the | | | | | | neutrophil | | | | | | count.NEUTROPHIL # | | | | | | 1.80 - 7.70 K/cu mm | | | | | | 4.27LYMPHOCYTE # 1.00 | | | | | | - 4.80 K/cu mm | | | | | | 1.48MONOCYTE # | | | | | | 0.10 - 0.90 K/cu mm | | | | | | 0.70EOS # 0.00 - | | | | | | 0.50 K/cu mm 0.91 | | | | | | (H)BASO # 0.00 - | | | | | | 0.10 K/cu mm | | | | | | 0.03IMMATURE | | | | | | GRANULOCYTE# 0.00 - | | | | | | 0.03 K/cu mm 0.04 | | | | | | (H)Resulting Agency | | | | | | [facility] | | | | | | My [...] | | | | | lly Signed 09/03/2016 | | | | | | 6:31PM | | | | + + + + + + + + | Specimen | + + | Bone marrow - Bone | | marrow structure | | (body structure) | + + + + + | Narrative | Performed At | + + + | | | + + + + + + + + | Performing | Address | City/State/Zipcode | Phone Number | | Organization | | | | + + + + + | [facility] | [address] | [place] [address] | | | PATHOLOGY | [address] | | | + + + + + GENETRAILS AML/MDS GENE MUTATION PANEL, BM (PP) (08/31/2016) + + + + + + | Component | Value | Ref Range | Performed | Pathologist | | | | | At | Signature | + + + + + + | [facility] | A [facility] AML/MDS | | [facility] | | | AML/MDS | Gene Mutation Panel Bone | | DIAGNOSTIC | | | GENE | MarrowSpecimen Type: | | | | | MUTATION | Bone Marrow | | LABORATORIE | | | PANEL, BM | (EDTA)Supplemental | | S | | | | indications: Acute | | | | | | myelomonocytic leukemia | | | | | | in remission | | | | | | Patient Results: | | | | | | [facility] AML/ MDS | | | | | | Panel: Mutation | | | | | | Screening by | | | | | | Next-Generation[employer] | | | | | | g: The previously | | | | | | reported IL7R gene | | | | | | variant persists in this | | | | | | post-transplantbone | | | | | | marrow sample from a | | | | | | patient with 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 | | | | | | The NRAS G12C missense | | | | | | mutation previously | | | | | | reported in the | | | | | | diagnostic | | | | | | andpre-transplant | | | | | | samples (05/27/2015 and | | | | | | 08/09/2015 bone marrows) | | | | | | is notdetected in the | | | | | | current sample (limit of | | | | | | detection ~0.5%) | | | | | | No new gene mutations | | | | | | are detected. | | | | | | Gene: | | | | | | [id number]: | | | | | | p.S185I (Likely benign | | | | | | germline | | | | | | polymorphism)Variant | | | | | | Allele frequency: 49% | | | | | | (detected at 48% on | | | | | | 04/19/2016) | | | | | | Average# of DNA sequence | | | | | | reads (ie, depth of | | | | | | coverage) for each of | | | | | | thefollowing genes: | | | | | | 1472 Each of the | | | | [...] RUNX1 | | | | | | 94%CEBPA 86% | | | | | | IL7R 100% SF3B1 | | | | | | 100%CREBBP 99% | | | | | | JAK1 100% SRSF2 | | | | | | 100%CSF3R 100% | | | | | | JAK2 100% STAT3 | | | | | | 100%DNMT3A 100% | | | | | | JAK3 85% SUZ12 | | | | | | 93%ETV6 100% KDM6A | | | | | | 95% TET2 (exon3) | | | | | | 100%EZH2 96% KIT | | | | | | 100% TP53 100%FBXW7 | | | | | | 96% KRAS 100% | | | | | | U2AF1 100%FLT3 | | | | | | 100% MPL 75% WT1 | | | | | | 81%GATA1 100% | | | | | | NOTCH1 93% ZRSR2 | | | | | | 94% *Percent | | | | | | of gene covered by a | | | | | | minimum of 100 sequence | | | | | | reads, as comparedwith | | | | | | expected coverage based | | | | | | on data from 10 normal | | | | | | DNA samples. A list | | | | | | ofgene segments with | | | | | | less than 100 sequence | | | | | | reads in this sample is | | | | [...] Ion | | | | | | [employer] PGM. The | | | | | [...] routine | | | | | | Sameera dideoxy | | | | | | sequencing methods. | | | | | | Alist of the gene | | | | | | segments that are | | | | | | incompletely covered by | | | | | | the combinationof | | | | | | massively parallel and | | | | | | [place] sequencing are | | | | | [...] supplementary | | | | | | xge-haseawbsnq-frnni | | | | | | assay [...] on | | | | | | variants identified in | | | | | | this specimen: | | | | | | Gene Transcript | | | | | | cDNA Roberta Genome | | | | | | Chrom Start | | | | | | End Ref Roberta | | | | | | IL7R [id number] | | | | | | c.554G>T hg19 chr5 | | | | | | [id number] G | | | | | | T Case | | | | | | reviewed by:Sharri | | | | | | Poage/Molecular | | | | | | TechnologistRichard | | | | | | MD Ramakrishna, | | | | | | PhD/Hematopathologist | | | | | | (Analyte [...] | | | | | determined by [facility] | | | | | | [facility] | | | | | | [facility]; CLIA # | | | | | | [id number]. It has not | | | | [...] | | | | | determined bythe [facility] | | | | | | [facility] [...] | | | | | | [facility] | | | | | | DiagnosticsLaboratories | | | | | | are fully licensed by | | | | | | the state of [place] | | | | | | under CLIA and | | | | | | areaccredited by [facility] [place] | | | | | | of [place] | | | | | | Pathologists (CAP). | | | | | | Rendering | | | | | | Diagnostician: Yung | | | | | | Ramakrishna PERERA, PhDMolecular | | | | | | Genetic | | | | | | PathologistElectronicall | | | | | | y Signed 09/20/2016 | | | | | | 12:20PM | | | | + + + + + + + + | Specimen | + + | Bone marrow - Bone | | marrow structure | | (body structure) | + + + + + | Narrative | Performed At | + + + | | | + + + + + + + + | Performing | Address | City/State/Zipcode | Phone Number | | Organization | | | | + + + + + | [facility] | [address] | [place] [address] | | | DIAGNOSTIC | [address] | | | | LABORATORIES | | | | + + + + + CYTOGENETICS BONE MARROW CHROMOSOME ANALYSIS (W/FISH) (PP) (08/31/2016) + + + + + + | Component | Value | Ref Range | Performed | Pathologist | | | | | At | Signature | + + + + + + | CHROMOSOME | Bone Marrow: Full | | [facility] | | | REPORT | StudySupplemental | | DIAGNOSTIC | | | | indications: Acute | | | | | | myelomonocytic leukemia | | LABORATORIE | | | | in remissionChromosome | | S | | | | Results: NormalKARYOTYPE | | | | | | RESULTS: 46,XY[20] | | | | | | IMPRESSIONS AND | | | | | | RECOMMENDATIONS:All | | | | | | twenty metaphase cells | | | | | | examined appeared normal | | | | | [...] Level: | | | | | | 450-500Number of | | | | | | Cells Counted: N/A | | | | | | Banding Method: | | | | | | GTWNumber of Cells | | | | | | Karyotyped: 3 | | | | | | The clinical | | | | | | interpretation was made | | | | | | by the clinical | | | | | | electricity trader. | | | | | | Rendering | | | | | | Diagnostician: Sam | | | | | | Benites PhD, ABMG, | | | | | | FACMGClinical | | | | | | CytogeneticistElectronic | | | | | | ally Signed 09/07/2016 | | | | | | 3:40PMRendering | | | | | | Diagnostician: Aspen | | | | | | Joceline PERERA, AB, | | | | | | FACMGClinical | | | | | | GeneticistElectronically | | | | | | Signed 09/07/2016 | | | | | | 5:57PM | | | | + + + + + + + + | Specimen | + + | Bone marrow - Bone | | marrow structure | | (body structure) | + + + + + | Narrative | Performed At | + + + | | | + + + + + + + + | Performing | Address | City/State/Zipcode | Phone Number | | Organization | | | | + + + + + | [facility] | [address], | [place] [address] | | | DIAGNOSTIC | [address] | | | | LABORATORIES | | | | + + + + + ENGRAFTMENT POST-TRANSPLANT, BONE MARROW (PP) (08/31/2016) + + + + + + | Component | Value | Ref Range | Performed | Pathologist | | | | | At | Signature | + + + + + + | ENGRAFTMENT | A Post-Transplant | | [facility] | | | POST | Engraftment, Bone | | DIAGNOSTIC | | | TRANSPLANT, | MarrowSpecimen Type: | | | | | BONE | Bone Marrow (EDTA); Date | | LABORATORIE | | | MARROW | of Transplant: | | S | | | | 08/26/15; DonorName/ID: | | | | | | NMDP | | | | | | [id number] | | | | | | indications: Acute | | | | | | myelomonocytic leukemia | | | | | | in remission | | | | | | Patient Results:No Host | | | | | | Cells Detected (100% | | | | | | donor) | | | | | | Interpretation:PCR [...] | | | | | | allele sizes at16 | | | | | | polymorphic loci are | | | | | | amplified in a multiplex | | | | | | PCR reaction. The | | | | | | STRloci [id number], D21S11, | | | | | | X3R416, CSF1PO, | | | | | | [id number], THO1, R69O196, | | | | | | E44W903,P4J3072, | | | | | | P95I888, vWA, TPOX, | | | | | | D18S51, P5H187, FGA and | | | | | | amelogenin are used | | | | | | toidentify and quantify | | | | | | recipient and donor | | | | | | alleles for assessment | | | | | | ofpost-transplant | | | | | | engraftment status. | | | | | | This | | | | | | test was developed and | | | | | | its performance | | | | | | characteristics | | | | | | determined byyesi [facility] | | | | | | [facility] [...] | | | | | | The [facility] | | | | | | DiagnosticsLaboratories | | | | | | are fully licensed by | | | | | | the state of [place] | | | | | | under CLIA and | | | | | | areaccredited by [facility] | | | | | | of [place] | | | | | | Pathologists (CAP). | | | | | | Rendering | | | | | | Diagnostician: Yung | | | | | | Ramakrishna PERERA, PhDMolecular | | | | | | Genetic | | | | | | PathologistElectronicall | | | | | | y Signed 09/05/2016 | | | | | | 6:45PM | | | | + + + + + + + + | Specimen | + + | Bone marrow - Bone | | marrow structure | | (body structure) | + + + + + | Narrative | Performed At | + + + | | | + + + + + + + + | Performing | Address | City/State/Zipcode | Phone Number | | Organization | | | | + + + + + | [facility] | [address] | [place] [address] | | | DIAGNOSTIC | [address] | | | | LABORATORIES | | | | + + + + + documented in this encounter Visit Diagnoses + + | Diagnosis | + + | 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
--- OUTSIDE RECORDS SUMMARY | ~2019-05-17 | XMS | Encounter Summary ---
Demographics + + + | Address | [address] | | | [place] [address] | + + + | Home Phone [...] Team Providers + +------+ + | Care Supreme Court Judge Name | Role | Phone | + +------+ + | Zayda Hinton | PCP | | + +------+ + Encounter Details +--------+ + + + + | Date | Type | Department | Care Team | Description | +--------+ + + + + | 07/08/ | Pharmacy | Specialty Pharmacy | | | | 2014 | Visit | Services [address] | | | | | | [address] | | | | | | [place], [place] | | | | | | [address] | | | | | | [phone] | | | +--------+ + + + [...] [place] | | | | | | [address] | | | | | | [phone] | | | | | | | | +--------+---------+ + + + documented as of this encounter Visit Diagnoses Not on filedocumented in this encounter"
--- OUTSIDE RECORDS SUMMARY | ~2019-05-17 | XMS | Encounter Summary ---
Demographics + + + | Address | [address] | | | [place] [address] | + + + | Home Phone | | + + + | Preferred Language | Unknown | + + + | Marital Status | | + + + | Mandaeism Affiliation | SPI | + + + | Race | White | + + + | Ethnic Group | Not or | + + + Author + + + | Author | [facility] | + + + | Organization | [facility] | + + + | Address | Unknown | + + + | Phone | Unavailable | + + + Support + + +---------+ + | Name | Relationship | Address | Phone | + + +---------+ + | Gabriel Kelly | ECON | Unknown | | + + +---------+ + Care Team Providers + +------+ + | Care Data Security Administrator Name | Role | Phone | + +------+ + | Zayda Hinton | PCP | | + +------+ + Encounter Details +--------+ + + + + | Date | Type | Department | Care Team | Description | +--------+ + + + + | 07/31/ | Pharmacy | Specialty Pharmacy | | | | 2016 | Visit | Services [address] | | | | | | [address] | | | | | | [place], [place] | | | | | | [address] | | | | | | [phone] | | | +--------+ + + + [...] [address] | | | | | | [place], [place] | | | | | | [address] | | | | | | [phone] | | | | | | | | +--------+---------+ + + + documented as of this encounter Visit Diagnoses Not on filedocumented in this encounter"
--- OUTSIDE RECORDS SUMMARY | ~2019-05-17 | XMS | Encounter Summary ---
Demographics + + + | Address | [address] | | | [place] [address] | + + + | Home Phone [...] Team Providers + +------+ + | Care Textile Stylist Name | Role | Phone | + [...] | | | | | | [place], | | | | | | | [place] | | | | | | | [address] | | | | | | | Phone: | | | | | | | [phone] | | | | | | | Fax: | | | | | | | [phone] | +--------+--------+ + + + + Encounter [...] | | | | | | [address] | | | | | | [place], | | | | | | [place] [address] | | | | | | [phone] | | | +--------+ + + + [...] [address] | | | | | | [place], [place] | | | | | | [address] | | | | | | [phone] | | | | | | | [...] | | | PST | ([facility]) | results section. | + +--------+ + + + | PRODUCT - PLATELET | Routin | 08/13/2015 | Acute myeloid | Results for this | | PHERESIS | e | 4:07 PM | leukemia (AML), M4 | procedure are in the | | LEUKOREDUCED | | PST | ([facility]) | results section. | + +--------+ + + + | CBC+DIFF,POC | Routin | 08/13/2015 | Acute myeloid | Results for this | | | e | 3:59 PM | leukemia (AML), M4 | procedure are in the | | | | PST | ([facility]) | results section. | + +--------+ + + + | CMP, POC (BMP+LFT) | Routin | 08/13/2015 | Acute myeloid | Results for this | | | e | 3:58 PM | leukemia (AML), M4 | procedure are in the | | | | PST | ([facility]) | results section. | + +--------+ + + + | ANTIBODY SCREEN | Routin | 08/13/2015 | Acute myeloid | Results for this | | | e | 3:47 PM | leukemia (AML), M4 | procedure are in the | | | | PST | ([facility]) | results section. | + +--------+ + + + | TYPE AND SCREEN | Routin | 08/13/2015 | Acute myeloid | Results for this | | | e | 3:47 PM | leukemia (AML), M4 | procedure are in the | | | | PST | ([facility]) | results section. | + +--------+ + + + | ABO & RH TYPE | Routin | 08/13/2015 | Acute myeloid | Results for this | | | e | 3:47 PM | leukemia (AML), M4 | procedure are in the | | | | PST | ([facility]) | results section. | + +--------+ + + + | LDH TOTAL, PLASMA | Routin | 08/13/2015 | Acute myeloid | Results for this | | | e | 3:47 PM | leukemia (AML), M4 | procedure are in the | | | | PST | ([facility]) | results section. | + [...] + + + + | PRODUCT | [id number] | | [facility] | | | UNIT [...] + + + + | EXPIRATION | [id number] | | [facility] | | | DATE [...] + + + + | BLOOD | [id number] | | [facility] | | | PRODUCT [...] DEPARTMENT OF | [address] | [place] [address] | | | PATHOLOGY | [address] [...] + + + + | PRODUCT | [id number] | | [facility] | | | UNIT [...] + + + + | EXPIRATION | [id number] | | [facility] | | | DATE [...] + + + + | BLOOD | [id number] | | [facility] | | | PRODUCT [...] | [address] | [place] [address] | | | PATHOLOGY | [address] [...] [facility]IO | [address] | [place], [place] | | | [facility] | [address] | | | TESTS | | | [...] S[facility]TO | [address] | [place], [place] | | | [facility] POINT OF CARE | [address] | [address] | | | TESTS | | | [...] [facility] | [address] | [place] [address] | | | SERVICES, | [address] [...] + + | [facility] | [address] | [place] [address] | | | SERVICES, | [address] [...] [facility] | [address] | [place] [address] | | | SERVICES, INDRA | [facility] [...]
--- OUTSIDE RECORDS SUMMARY | ~2019-05-17 | XMS | Encounter Summary ---
Demographics + + + | Address | [address] | | | [place] [address] | + + + | Home Phone [...] Team Providers + +------+ + | [employer] Name | Role | Phone | + [...] + + + + | 10/17/ | Hospital | [facility] GI PROCEDURE | Chris Salvador, | | | 2017 | Encounter | [address] | | | | | | [place] Mailcode: [facility] | | | | | | [facility] | | | | | | Health and Healing, | | | | | | [address] | | | | | | [place], [place] | | | | | | [address] | | | | | | [phone] | | | +--------+ + + + [...] + | Blood Pressure | 133/85 | 10/17/2016 4:55 PM | | | | | PDT | | + + + + + | Pulse | 102 | 10/17/2016 4:35 PM | | | | | PDT | | + + + + + | Temperature | 37.1 C (98.8 F) | 10/17/2016 3:23 PM | | | | | PDT | | + + + + + | Respiratory Rate | 18 | 10/17/2016 4:55 PM | | | | | PDT | | + + + + + | Oxygen Saturation | 100% | 10/17/2016 4:55 PM | | | | | PDT [...] + + documented in this encounter Discharge Instructions Instructions Nelli Belcher RN - 10/17/2016Home Care Instructions after EGD (Upper Endoscop y) and Flexible Sigmoidoscopy You may resume your normal diet and medications unless told otherwise. Medications The medications you received for your procedure can cause you to be forgetful and drowsy an d will take the remainder of the day to wear off. DO NOT drink alcohol, drive, operate heavy machinery, sign legal documents, or make major d ecisions until tomorrow. Common After Effects Mild abdominal pain, bloating, and gas. Sore throat. You may treat it with throat lozenges and/or gargle with warm salt water. You may bruise at your IV site. If you have pain, redness, or swelling at your IV site a pply a warm compress. Complications Call your GI doctor if you have: Abnormal pain or any new unexplained symptoms. Shortness of breath, chest or neck pain. Vomiting blood or rectal bleeding. Fever above 101.5 Redness, pain, or swelling at your IV site that is not relieved with warm compress. For any questions related to your procedure, call Sunday- Sunday 8:00- 4:30 Call the endoscopy department toll free ext. [phone] or After business hours or on weekends and holiday [facility] toll free [phone] ext. [phone] and have the GI doctor project control analyst paged. The provider who performed your procedure is: Dr. Salvador Results of your EGD: - Biopsies taken from your small intestine and stomach and sent to lab. Results of your Flexible Sigmoidoscopy:Biopsies taken and sent to lab. Follow up Appointments with: pending pathology results. Your primary care provider or referring provider will receive copies of the procedure repor t and all the pathology reports with recommendations for treatment if needed. If Noted above that biopsies were taken or polyps removed we will receive the results in ap proximately 1 week. If you have not heard from us after 2 weeks please call for your results . documented in this encounter Progress Notes Chris Salvador MD - 10/17/2016 3:58 PM PDTFormatting of this note might be different fro m the original. PRE PROCEDURE NOTE: MR# [id number] Subjective: Khurram Kelly is a 26 y.o. male who presents today for EGD/sigmoi doscopy. Patient History Reviewed Medications reviewed Allergies as of 10/12/2016 (No Known Allergies) Pt NPO since 2329 on 10/16/16 ASA Class: II ROS: All others negative. Objective: Vital Signs: BP 115/78 | Temp 37.1 C (98.8 F) | SpO2 100% Neuro: Alert and Oriented x 3 Mallampati Score: II Neck: supple, no lymphadenopathy Respiratory: Lungs clear to auscultation bilaterally with good air exchange Cardiovascular: Regular rate Abdomen: soft, normal active bowel sounds, nontender, no masses, no organomegaly Impression Patient deemed appropriate candidate for planned procedure and sedation. Plan Proceed with EGD/sigmoidoscopy PARQ held and all questions addressed. Consent obtained. See procedure note 10/17/2016 documented in this en counter Plan of [...] 2018 | Visit | Malignancy | [address] [facility] | | | | | | [address] | | | | | | [facility] [place] | | | | | | [address] | | | | | | [phone] | | | | | | | | +--------+---------+ + + + documented as of this encounter Procedures + +--------+ + + + | Procedure Name | Priori | Date/Time | Associated Diagnosis | Comments | | | ty | | | | + +--------+ + + + | FLEXIBLE | Routin | 10/17/2016 | Intractable | Results for this | | SIGMOIDOSCOPY | e | 3:55 PM | vomiting with | procedure are in the | | | | PDT | nausea, unspecified | results section. | | | | | vomiting type | | + +--------+ + + + | EGD | Routin | 10/17/2016 | Intractable | Results for this | | | e | 3:54 PM | vomiting with | procedure are in the | | | | PDT | nausea, unspecified | results section. | | | | | vomiting type | | + +--------+ + + + | NON ANTIQUE FINISHER CYTOLOGY | Routin | 10/17/2016 | | Results for this | | | e | | | procedure are in the | | | | | | results section. | + +--------+ + + + | SURGICAL PATHOLOGY | Routin | 10/17/2016 | | Results for this | | | e | | | procedure are in the | | | | | | results section. | + +--------+ + + + documented in this encounter Results FLEXIBLE SIGMOIDOSCOPY (10/17/2016 3:55 PM PDT) + + | Specimen | + + | | + + + + ---+ | Narrative | Performed At | + + ---+ | MRN: | [facility] | | [id number] Date: 10/17/2016Patient Name: Khurram | ENDOSCOPY | | BrandyquesOrder #: [id number] of : 1990CSN: | | | [id number] Type: AmbulatoryRoom: [facility] 3Procedure: | | | Flexible SigmoidoscopyIndications: Suspected | | | dotfb-cgahdf-zaza diseaseProviders: CHRIS SALVADOR MD | | | (Doctor), NELLI BELCHER RN (Nurse), | | | SHU HARRIS, Swimming Instructor (Swimming Instructor)Referring MD: PATTY | | | PILI WALTERSPRequesting Provider: Medicines: See the | | | other procedure note for documentation of the | | | administered medicationsComplications: No immediate | | | complications.Procedure: Pre-Anesthesia Assessment: | | | - ASA Grade Assessment: II - A patient with | | | mild systemic disease. | | | Prior to the procedure, a History and Physical with | | | airway assessment was performed (see | | | patient record), and patient | | | medications and allergies were reviewed. The | | | risks and benefits of the procedure and the sedation | | | options and risks were discussed. All questions | | | were answered and informed consent was | | | obtained. After reviewing the risks and | | | benefits, the patient was deemed in | | | satisfactory condition to undergo the procedure. | | | Immediately prior to administration of medications, the | | | patient was re-assessed for adequacy to | | | receive sedatives. The heart rate, | | | respiratory rate, oxygen saturations, | | | blood pressure, adequacy of pulmonary | | | ventilation, and response to care were monitored | | | throughout the procedure. The physical status of the | | | patient was re-assessed after the procedure. | | | The Olympus GIF-HQ190 Endoscope #[id number] | | | was introduced through the anus and | | | advanced to the rectum. The flexible | | | sigmoidoscopy was accomplished with ease. The | | | patient tolerated the procedure well. The quality of the | | | bowel preparation was excellent.Estimated | | | Blood Loss: Estimated blood loss was minimal.Findings: A | | | localized area of mildly erythematous mucosa was found in the rectum. | | | This was biopsied with a cold forceps for histology.Moderate | | | Sedation: Moderate (conscious) sedation was administered by the | | | endoscopy nurse and supervised by the endoscopist. The | | | following parameters were monitored: oxygen saturation, heart | | | rate, blood pressure, and response to care.Impression: | | | - Erythematous mucosa in the rectum. Biopsied.Recommendation: | | | - Await pathology results.CHRIS SALVADOR MD10/17/2016 4:35:11 | | | PMNumber of Addenda: 0Note Initiated On: 10/17/2016 3:55 PM | | | monitored: oxygen saturation, heart rate, blood pressure, and response | | | to care. | | |Impression: - Erythematous mucosa in the rectum. Biopsied. | | |Recommendation: - Await pathology results. | | |CHRIS SALVADOR MD | | |10/17/2016 4:35:11 PM | | |Number of Addenda: 0 | | |Note Initiated On: 10/17/2016 3:55 PM | | + + ---+ + +---------+ + + | Performing | Address | City/State/[facility]ode | Phone Number | | Organization | | | | + +---------+ + + | [facility] | | | | + +---------+ + + EGD (10/17/2016 3:54 PM PDT) + + | Specimen | + + | | + + + + ---+ | Narrative | Performed At | + + ---+ | MRN: | [facility] | | [id number] Date: 10/17/2016Patient Name: Khurram | ENDOSCOPY | | LeticiaOrder #: [id number] of : 1990CSN: | | | [id number] Type: AmbulatoryRoom: [facility] 3Procedure: | | | Upper GI endoscopyIndications: Suspected kqqtt-tkusaf-nsqu | | | disease, Nausea with vomitingProviders: CHRIS | | | MD MODESTO (Doctor), NELLI WEST, RN (Nurse), | | | SHU HARRIS, Swimming Instructor (Swimming Instructor)Referring MD: | | | PATTY WALTERS, FNPRequesting Provider: Medicines: | | | Midazolam 8 mg IV, Fentanyl 175 micrograms IV, | | | Diphenhydramine 50 mg IVComplications: No | | | immediate complications.Procedure: Pre-Anesthesia | | | Assessment: - ASA Grade Assessment: II - | | | A patient with mild systemic disease. | | | Prior to the procedure, a History and | | | Physical with airway assessment was | | | performed (see patient record), and | | | patient medications and allergies were reviewed. The | | | risks and benefits of the procedure and the sedation | | | options and risks were discussed. All | | | questions were answered and informed | | | consent was obtained. After reviewing | | | the risks and benefits, the patient was deemed | | | in satisfactory condition to undergo the procedure. | | | Immediately prior to administration of | | | medications, the patient was | | | re-assessed for adequacy to receive | | | sedatives. The heart rate, respiratory rate, oxygen | | | saturations, blood pressure, adequacy of pulmonary | | | ventilation, and response to care were | | | monitored throughout the procedure. The | | | physical status of the patient was | | | re-assessed after the procedure. The | | | Olympus GIF-HQ190 Endoscope #[id number] was introduced | | | through the mouth, and advanced to the second part of | | | duodenum. The upper GI endoscopy was | | | accomplished without difficulty. The | | | patient tolerated the procedure | | | well.Estimated Blood Loss: Estimated blood loss was | | | minimal.Findings: Diffuse candidiasis was found in the lower | | | third of the esophagus. Brushings for DAVON prep were obtained in | | | the lower third of the esophagus. Estimated blood loss was | | | minimal. Diffuse mildly erythematous mucosa without bleeding was | | | found in the entire examined stomach. Biopsies were taken with | | | a cold forceps for histology. The examined duodenum was | | | normal. Biopsies were taken with a cold forceps for | | | histology.Moderate Sedation: Moderate (conscious) sedation was | | | administered by the endoscopy nurse and supervised by the | | | endoscopist. The following parameters were monitored: oxygen | | | saturation, heart rate, blood pressure, and response to | | | care.Impression: - Monilial esophagitis. Brushings | | | performed. - Erythematous mucosa in the | | | stomach. Biopsied. - Normal examined | | | duodenum. Biopsied.Recommendation: - Await pathology results. | | | - Perform a flexible sigmoidoscopy | | | today.CHRIS SALVADOR MD10/17/2016 4:29:48 PMNumber of Addenda: 0Note | | | Initiated On: 10/17/2016 3:54 PM | | | - Erythematous mucosa in the stomach. Biopsied. | | | - Normal examined duodenum. Biopsied. | | |Recommendation: - Await pathology results. | | | - Perform a flexible sigmoidoscopy today. | | |CHRIS SALVADOR MD | | |10/17/2016 4:29:48 PM | | |Number of Addenda: 0 | | |Note Initiated On: 10/17/2016 3:54 PM | | + + ---+ + +---------+ + + | Performing | Address | City/State/[facility] Mex[facility]ode | Phone Number | | Organization | | | | + +---------+ + + | [facility] | | | | + +---------+ + + NON ANTIQUE FINISHER CYTOLOGY (10/17/2016) + + + + + + | Component | Value | Ref Range | Performed | Pathologist | | | | | At | Signature | + + + + + + | NON-ANTIQUE FINISHER | SOURCE OF SPECIMEN:A | | [facility] | | | CYTOLOGY | Esophageal BrushingGROSS | | DEPARTMENT | | | | DESCRIPTION: 1 brush | | OF | | | | in CytoRich Red; 1 | | PATHOLOGY | | | | [facility] and [facility] | | | | | | prepared.CLINICAL | | | | | | HISTORY: | | | | | | Diagnosis:Negative for | | | | | | malignancy. | | | | | | Adequacy:Satisfactory | | | | | | for evaluation. | | | | | | Microorganisms:Fungal | | | | | | organisms compatible | | | | | | with Angela species are | | | | | | present. My | | | | | | [...] Diagnostician: | | | | | | Chloe Tan | | | | | | CT(ASCP)Deck Supervisor | | | | | | Electronically Signed | | | | | | 10/18/2016 | | | | | | 12:40PMRendering | | | | | | Diagnostician: Gustavo | | | | | | Ankit Koch, | | | | | | Ph.DPathologistElectroni | | | | | | florin Signed 10/18/2016 | | | | | | 1:09PM | | | | + + + + + + + + | Specimen | + + | Brushing - | | Esophageal structure | | (body structure) | + + + + + | Narrative | Performed At | + + + | | | + + + + + + + + | Performing | Address | City/State/Zipcode | Phone Number | | Organization | | | | + + + + + | [facility] | [address] | [place] [address] | | | PATHOLOGY | [address] | | | + + + + + SURGICAL PATHOLOGY (10/17/2016) + + + + + + | Component | Value | Ref Range | Performed | Pathologist | | | | | At | Signature | + + + + + + | SURGICAL | SOURCE OF SPECIMEN:A | | [facility] | | | PATHOLOGY | Duodenum biopsiesSOURCE | | DEPARTMENT | | | | OF SPECIMEN:B Stomach | | OF | | | | biopsiesSOURCE OF | | PATHOLOGY | | | | SPECIMEN:C Rectum | | | | | | biopsies Final | | | | | | Pathologic Diagnosis:A. | | | | | | Duodenum, biopsy: | | | | | | - Duodenal mucosa with | | | | | | no diagnostic | | | | | | abnormality B. | | | | | | Stomach, biopsy: - | | | | | | Gastric antral and | | | | | | oxyntic mucosa with no | | | | | | diagnostic abnormality | | | | | | C. Rectum biopsy: | | | | | | - Colonic mucosa | | | | | | with increased crypt | | | | | | apoptotic figures, see | | | | | | comment Comment: | | | | | | The differential for | | | | | | specimen C includes | | | | | | 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 host | | | | | | diseaseas well as | | | | | | mycophenylate-related | | | | | | colitis; CMV | | | | | | immunohistochemical | | | | | | stainsperformed on | | | | | | specimens B and C are | | | | | | negative. 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 EGD with gastric | | | | | | erythema, sigmoidoscopy | | | | | | with rectalerythema. 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 Currently on | | | | | | mycophenylate. | | | | | | Gross Description:The | | | | | | specimen(s) are received | | | | | | in formalin, labeled | | | | | | with the patient | | | | | | name(initials JG) and | | | | | | #[id number] A. | | | | | | Duodenal biopsies: | | | | | | Received 0.7 x 0.2 x 0.1 | | | | | | -cm in aggregate are | | | | | | 3soft, farris tissues. | | | | | | The entire specimen is | | | | | | submitted. B. | | | | | | Stomach biopsies: | | | | | | Received 0.6 x 0.2 x 0.1 | | | | | | -cm in aggregate are | | | | | | 3soft, farris tissues. | | | | | | The entire specimen is | | | | | | submitted. C. | | | | | | Rectum biopsies: | | | | | | Received 0.3 x 0.2 x 0.1 | | | | | | -cm in aggregate are 2 | | | | | | soft,farris tissues. The | | | | | | entire specimen is | | | | | | submitted. | | | | | | Cassette Index:A1, | | | | | | Duodenal biopsiesB1, | | | | | | Stomach biopsiesC1, | | | | | | Rectum biopsies NN | | | | | | (Analyte [...] | | | | cs determined by [facility] | | | | | | laboratories. [...] | | | | | | used forclinical | | | | | | purposes. [...] Diagnostician: | | | | | | Nicanor Fitzpatrick M.D., | | | | | | | | | | | | Ph.D.PathologistElectron | | | | | | krystyna Signed 10/19/2016 | | | | | | 5:56PM | | | | + + + + + + + + | Specimen | + + | Tissue - Biopsy | | (procedure) | + + + + + | Narrative | Performed At | + + + | | | + + + + + + + + | Performing | Address | City/State/Zipcode | Phone Number | | Organization | | | | + + + + + | [facility] | [address] | [place] [address] | | | PATHOLOGY | [address] | | | + + + + + documented in this encounter Visit Diagnoses + + | Diagnosis | + + | Intractable vomiting with nausea, unspecified vomiting type | + + documented in this encounter Administered Medications + +--------+ +-------+------+------+ | Medication Order | MAR | Action | Dose | Rate | Site | | | Action | Date | | | | + +--------+ +-------+------+------+ | diphenhydrAMINE (BENADRYL) | Given | 10/18/19 | 50 mg | | | | injection INTRAPROCEDURE PRN, | | 17 4:11 | | | | | Starting 10/17/16 at 1611, | | PM PDT | | | | | Until 10/17/16 at 1611 | | | | | | + +--------+ +-------+------+------+ +---+---+ | | | +---+---+ + +-------+ +--------+---+---+ | fentaNYL (SUBLIMAZE) injection | Given | 10/18/19 | 50 mcg | | | | intravenous, INTRAPROCEDURE PRN, | | 17 4:02 | | | | | Starting 10/17/16 at 1602, | | PM PDT | | | | | Until 10/17/16 at 1602 | | | | | | + +-------+ +--------+---+---+ +---+---+ | | | +---+---+ + +-------+ +--------+---+---+ | fentaNYL (SUBLIMAZE) injection | Given | 10/18/19 | 50 mcg | | | | intravenous, INTRAPROCEDURE PRN, | | 17 4:04 | | | | | Starting 10/17/16 at 1604, | | PM PDT | | | | | Until 10/17/16 at 1604 | | | | | | + +-------+ +--------+---+---+ +---+---+ | | | +---+---+ + +-------+ +--------+---+---+ | fentaNYL (SUBLIMAZE) injection | Given | 10/18/19 | 50 mcg | | | | intravenous, INTRAPROCEDURE PRN, | | 17 4:06 | | | | | Starting 10/17/16 at 1606, | | PM PDT | | | | | Until 10/17/16 at 1606 | | | | | | + +-------+ +--------+---+---+ +---+---+ | | | +---+---+ + +-------+ +--------+---+---+ | fentaNYL (SUBLIMAZE) injection | Given | 10/18/19 | 25 mcg | | | | intravenous, INTRAPROCEDURE PRN, | | 17 4:17 | | | | | Starting 10/17/16 at 1617, | | PM PDT | | | | | Until 10/17/16 at 1617 | | | | | | + +-------+ +--------+---+---+ + +---+ | | | + +---+ | lidocaine viscous (XYLOCAINE | | | VISCOUS) 2 % mucosal solution 15 | | | mL 15 mL, oral, INTRAPROCEDURE | | | PRN, Starting 10/17/16 at | | | 1511, Until 10/17/16 at 2302, | | | sore oropharynx | | + +---+ | | | + +---+ + +-------+ +------+---+---+ | midazolam (PF) (VERSED) | Given | 10/18/19 | 2 mg | | | | injection INTRAPROCEDURE PRN, | | 17 4:02 | | | | | Starting 10/17/16 at 1602, | | PM PDT | | | | | Until 10/17/16 at 1602 | | | | | | + +-------+ +------+---+---+ +---+---+ | | | +---+---+ + +-------+ +------+---+---+ | midazolam (PF) (VERSED) | Given | 10/18/19 | 2 mg | | | | injection INTRAPROCEDURE PRN, | | 17 4:04 | | | | | Starting 10/17/16 at 1604, | | PM PDT | | | | | Until 10/17/16 at 1604 | | | | | | + +-------+ +------+---+---+ +---+---+ | | | +---+---+ + +-------+ +------+---+---+ | midazolam (PF) (VERSED) | Given | 10/18/19 | 2 mg | | | | injection INTRAPROCEDURE PRN, | | 17 4:06 | | | | | Starting 10/17/16 at 1606, | | PM PDT | | | | | Until 10/17/16 at 1606 | | | | | | + +-------+ +------+---+---+ +---+---+ | | | +---+---+ + +-------+ +------+---+---+ | midazolam (PF) (VERSED) | Given | 10/18/19 | 2 mg | | | | injection INTRAPROCEDURE PRN, | | 17 4:14 | | | | | Starting 10/17/16 at 1614, | | PM PDT | | | | | Until 10/17/16 at 1614 | | | | | | + +-------+ +------+---+---+ + +---+ | | | + +---+ | simethicone (MYLICON) | | | suspension 3.333 mg 3.333 mg | | | (rounded from 3.3333 mg = 1 | | | drop), oral, HSD PRN, Starting | | | 10/17/16 at 1511, Until Tue | | | 10/17/16 at 2302, bloating, gas | | | bubbles | | + +---+ | | | + +---+ + +---------+ + + +---+ | sodium chloride 0.9% IV | New Bag | 10/18/19 | 50 mL/hr | 50 mL/hr | | | infusion 50 mL/hr, intravenous, | | 17 3:30 | | | | | CONTINUOUS, Starting 10/17/16 | | PM PDT | | | | | at 1515, Until 10/17/16 at | | | | | | | 2302 | | | | | | + +---------+ + + +---+ +---+---+ | | | +---+---+ documented in this encounter"
--- OUTSIDE RECORDS SUMMARY | ~2019-05-17 | XMS | Encounter Summary ---
Demographics + + + | Address | [address] | | | [place] [address] | + + + | Home Phone [...] + + + | Author | [facility] | + + + | Organization | [facility] | + + + | Address | Unknown | + + + | Phone | Unavailable | + + + Support + + +---------+ + | Name | Relationship | Address | Phone | + + +---------+ + | Gabriel Kelly | ECON | Unknown | | + + +---------+ + Care Team Providers + +------+ + | Care Hot Metal Car Operator Name | Role | Phone | + +------+ + | Zayda Hinton | PCP | | + +------+ + Encounter Details +--------+ + + + + | Date | Type | Department | Care Team | Description | +--------+ + + + + | 02/15/ | Pharmacy | Specialty Pharmacy | | | | 2015 | Visit | Services [address] | | | | | | [address] | | | | | | [place], [place] | | | | | | [address] | | | | | | [phone] | | | +--------+ + + + [...] 2019 | Visit | Malignancy | [address] [facility] | | | | | | [address] | | | | | | [place], [place] | | | | | | [address] | | | | | | [phone] | | | | | | | | +--------+---------+ + + + documented as of this encounter Visit Diagnoses Not on filedocumented in this encounter"
--- OUTSIDE RECORDS SUMMARY | ~2019-05-17 | XMS | Encounter Summary ---
Demographics + + + | Address | [address] | | | [place] [address] | + + + | Home Phone [...] Providers + +------+ + | Care Manager Provider Relations Name | Role | Phone | + +------+ + | Pending Pcp Addition | PCP | Unavailable | + +------+ + Reason for Visit +--------+ + | Reason | Comments | +--------+ + | Rash | | +--------+ + Encounter Details +--------+ + + + + | Date | Type | Department | Care Team | Description | +--------+ + + + + | 08/21/ | Telephone | Center for | Aspen Cummins FNP | [facility] | | 2017 | | Hematologic | [address] | | | | | Malignancies at | [address] | | | | | [facility] [address] | [place], [place] | | | | | [address] | [address] | | | | | Debi Burger Mailcode: | [phone] | | | | | [id number] | | | | | | [place], | | | | | | [place] [address] | | | | | | [phone] | | | +--------+ + + + [...] [address] | | | | | | [place] | | | | | | [address] | | | | | | [phone] | | | | | | | | +--------+---------+ + + + documented as of this encounter Visit Diagnoses Not on filedocumented in this encounter"
--- OUTSIDE RECORDS SUMMARY | ~2019-05-17 | XMS | Encounter Summary ---
Demographics + + + | Address | [address] | | | [place] [address] | + + + | Home Phone [...] Team Providers + +------+ + | Care Grievance Coordinator Name | Role | Phone | [...] | | | | | achieved | [place], [place] | [facility] | | | | | remission | [address] | [facility] | | | | | | Phone: | [facility] | | | | | Procedures | [phone] | [place], [place] | | | | | Post BMT | Fax: | [address] | | | | | Auth to | [phone] | Phone: | | | | | included | | [phone] | | | | | facility, | | Fax: | | | | | diagnostics, | | [phone] | | | | | office | [...] 2017 | Visit | Hematologic | [address] [facility] | marrow transplant | | | | Malignancies at | [address] | ([facility]) (Primary Dx); | | | | [facility] | [place], [place] | Tachycardia | | | | [address] | [address] | | | | | [address] Mailcode: | [phone] | | | | | [id number] | | | | | | [facility] [place], | | | | | | [place] [address] | | | | | | [phone] | | | +--------+---------+ + + + [...] MM URD (DPB1 permissive antigen mismatch, male, [id number]) Identifying Data: Khurram Kelly is a 26 [...] his L ankle. He was evaluated at [facility] ED on 06/[address] angiogram negative [...] leukemia. He was referred to [facility] for further evaluation and man agement of his newly dx'd AML. Pt was admitted to [facility] on 05/26/15. Peripheral blood [...] CD34, variable CD56, variable CD117, and dim [id number] mickey; promonocyte immunophenotype (70% by flow): CD11b, [...] indicated providing peripheral counts remain stable 2. 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 He initially responded but flared during taper. He also developed low-level nausea and abd discomfort concerning for GvHD, emp irically treated with oral non-absorbables with resolution. - He had tapered prednisone to 10 mg po daily when he developed a rash for which he was see n in the ED in [place] in late 01/21. Prednisone was increased back [...] one patient with minimal guidance from the care team coordinator scheduler (no t the usual care team coordinator scheduler). He is willing to give it another try but thinks individual therap y may be best for him. --> continue to attend [facility] support group as able; hopefully will be better with the regular care team coordinator scheduler --> restart xanax 1 mg po BID --> Kezia Stokes LCSW to meet with pt today to discuss options for individual therapy 7. Follow up --> RTC to f/u with me in 1 week --> labs at [facility] prior [facility] [address] [facility] Mailcode: [id number] [phone] documented in this enc ounter Plan of [...] | 2018 | Visit | Malignancy | [facility] | | | | | | [facility] | | | | | | [place], [place] | | | | | | [address] | | | | | | [phone] | | | | | | | [...] | Test performed by immunoassay using Blanton Urban Sociologist i2000. . | [facility] | | Samples [...] + | [facility] | [address] [facility] [facility] | [place] [address] | | | SPECIAL KOLE | WALLY [...] [facility] | [address] | [place] [address] | | | SERVICES, CORE | PARK [...] [facility] | [address] | [place] [address] | | | SERVICES, INDRA | WALLY [...] [facility] | [address] | [place] [address] | | | SERVICES, CORE | PARK [...] | + + + + + | [facility] | [address] | [place] [address] | | | SERVICES, CORE | WALLY [...] [facility] | [address] | [place] [address] | | | KOLE, INDRA | WALLY [...] | | | LABORATORY | | | [facility] | | | SERVICES, | | | [...] the MDRD equation recommended by the | [facility] | | National Kidney Disease Education Program. [...] + | [facility] | [address] | [place] [address] | | | INDRA SHARIF | WALLY [...] DEPT OF | [address] | [place], [place] | | | CARDIOLOGY | [address] | [address] | | + + + + + documented in this encounter Visit Diagnoses + + | Diagnosis | + + | 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HCC) - Primary Bone marrow replaced by | | transplant | + + | Tachycardia Tachycardia, unspecified | + + documented in this encounter"
--- OUTSIDE RECORDS SUMMARY | ~2019-05-17 | XMS | Encounter Summary ---
Demographics + + + | Address | [address] | | | [place] [address] | + + + | Home Phone | | + + + | Preferred Language | Unknown | + + + | Marital Status | | + + + | Jew Affiliation | SPI | + + + | Race | White | + + + | Ethnic Group | Not or | + + + Author + + + | Author | [facility] | + + + | Organization | [facility] | + + + | Address | Unknown | + + + | Phone | Unavailable | + + + Support + + +---------+ + | Name | Relationship | Address | Phone | + + +---------+ + | Gabriel Kelly | ECON | Unknown | | + + +---------+ + Care Team Providers + +------+ + | Care Air Hoist Operator Name | Role | Phone [...] | | | | | | | [address] | | | | | | | [address] | | | | | | | [place], | | | | | | | [place] | | | | | | | [address] | | | | | | | Phone: | | | | | | | [phone] | | | | | | | Fax: | | | | | | | [phone] | +--------+--------+ + + + + Encounter Details +--------+---------+ + + + | Date | Type | Department | Care Team | Description | +--------+---------+ + + + | 12/29/ | Office | Center for | Yari Garcia MD | GVHD (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 | | 2016 | Visit | Hematologic | [address] [facility] | host disease) (HCC) | | | | Malignancies at | [address] | (Primary Dx) | | | | [facility] | [place], [place] | | | | | [address] | [address] | | | | | [address] Mailcode: | [phone] | | | | | [facility] | | | | | | [place], | | | | | | [place] [address] | | | | | | [phone] | | | +--------+---------+ + + + [...] + + + | Blood Pressure | 135/88 | 12/30/2015 8:36 AM | | | | | PDT | | + + + + + | Pulse | 91 | 12/30/2015 8:36 AM | | | | | PDT | | + + + + + | Temperature | 36.7 C (98.1 F) | 12/30/2015 8:36 AM | | | | | PDT | | + + + + + | Respiratory Rate | 18 | 12/30/2015 8:36 AM | | | | | PDT | | + + + + + | Oxygen Saturation | 97% | 12/30/2015 8:36 AM | | | | | PDT | | + + + + + | Inhaled Oxygen | - | - | | | Concentration | | | | + + + + + | Weight | 89.6 kg (197 lb 8.5 | 12/30/2015 8:36 AM | | | | oz) | PDT | | + + + + + | Height | - | - | | + + + + + | Body Mass Index | 25.53 | 08/18/2015 4:35 PM | | | | | PST | | + + + + + documented in this encounter Patient Instructions Patient Instructions Yari Garcia MD - 12/30/2015 9:26 AM PDTDecrease prednisone to 15 mg daily x 3 days, then go back to 10 mg daily. Next week we will consider tapering further as we need to get you off immunosuppression. Bone marrow biopsy will be 6 months post-transplant, we will get that on your calendar. We will also check your lungs with pulmonary function testing at that time. Avoid kids with rashes, diarrhea, fevers. Avoid excess sun exposure. [facility] - Damaris Dean MD is a good physicianElectronically sign ed by Yari Garcia MD at 12/30/2015 9:37 AM PDT documented in this encounter Progress Notes Yari Garcia MD - 12/30/2015 9:23 AM PDT 126 days post transplant 12/30/15 [facility] MD: Yari Garcia MD Primary Oncologist: Yari Garcia MD Diagnosis: AMML, primary refractory Transplant Date: 08/27/15 Donor: MM URD (DPB1 permissive antigen mismatch, male, [id number]) Identifying Data: Khurram Kelly is a 25 [...] his L ankle. He was evaluated at [facility] ED on 06/[address] angiogram negative [...] leukemia. He was referred to [facility] for further evaluation and man agement of his newly dx'd AML. Pt was admitted to [facility] on 05/26/15. Peripheral blood was sent [...] CD34, variable CD56, variable CD117, and dim [id number] mickey; promonocyte immunophenotype (70% by flow): CD11b, [...] durin g taper. He is currently day +126 s/p transplant, day 4, c3 of azacitidine and returns to clinic tod for scheduled follow-up. Interim History: Khurram returns to clinic today and is feeling much better overall. His knee pain is nearly resolved and he has not had any recurrence of elbow pain. No fevers/chi lls. No nausea/vomiting. No dyspnea/chest pain. No recurrence of rash. Review of Systems Constitutional: Negative for fever, chills, weight loss and malaise/fatigue. HENT: Negative for congestion. Eyes: Negative for blurred vision. Respiratory: Negative for cough and shortness of breath. Cardiovascular: Negative for chest pain and leg swelling. Gastrointestinal: Negative for heartburn, nausea, vomiting, abdominal pain, diarrhea and co nstipation. Genitourinary: Negative for dysuria. Musculoskeletal: Joint pain resolved. Negative for myalgias and falls. Skin: Negative for itching and rash. Neurological: Negative for dizziness, weakness and headaches. Endo/Heme/Allergies: Does not bruise/bleed easily. Psychiatric/Behavioral: Negative for depression. The patient is not nervous/anxious. Current Outpatient Prescriptions Medication Sig acyclovir 800 [...] daily. predniSONE 10 mg oral tablet Take 15 mg (one and one-half tablet) by mouth once daily f or 3 days, then decrease to 10 mg (one tablet) once daily until your next visit. senna-docusate 8.6-50 mg oral tablet Take 1 tablet by mouth twice daily as needed. tacrolimus 0.5 mg oral capsule Take 0.5 mg (one capsule) by mouth twice daily No current facility-administered medications for this visit. Allergies Allergen Reactions Chlorhexidine Towelette Rash PAVAN cloths - ok to use Chloraprep for dresssing change per pt. Filed Vitals: 12/30/2015 8:36 AM Weight: 89.6 kg (197 lb 8.5 oz) BP: 135/88 Pulse: 91 Temp: 36.7 C (98.1 F) TempSrc: Oral Resp: 18 SpO2: 97% BMI: 25.54 kg/(m^2) Physical Exam Constitutional: No distress. Cushingoid HENT: Mouth/Throat: Oropharynx is clear and moist. No oropharyngeal exudate. Eyes: Conjunctivae are normal. Right eye exhibits no discharge. Left eye exhibits no discha rge. No scleral icterus. Neck: Neck supple. Cardiovascular: No murmur heard. Pulmonary/Chest: Effort normal and breath sounds normal. Abdominal: Soft. Bowel sounds are normal. He exhibits no distension. Musculoskeletal: Normal range of motion. He exhibits no tenderness. He exhibits no edema. Lymphadenopathy: He has no cervical adenopathy. Neurological: He is alert. Skin: Skin is warm and dry. No rash noted. He is not diaphoretic. No erythema. No pallor. Psychiatric: Mood, memory, affect and judgment normal. CVC: Trifusion intact to R ant chest wall without erythema, induration Clinical Supervisor Cartography on 12/30/2015 Component Date Value WBC POC 12/30/2015 5.5 RBC POC 12/30/2015 3.43* HGB POC 12/30/2015 12.5* HCT POC 12/30/2015 34.8* MCV POC 12/30/2015 101.5* MCH POC 12/30/2015 36.4* MCHC POC 12/30/2015 35.9 RDW SD, POC 12/30/2015 53.8* PLT POC 12/30/2015 85* MPV POC 12/30/2015 8.8* NEUTROPHIL% POC 12/30/2015 60.2 LYMPH% POC 12/30/2015 26.5 MONO %, POC 12/30/2015 11.1* EOS %, POC 12/30/2015 1.1 BASO %, POC 12/30/2015 1.1 NEUTROPHIL# POC 12/30/2015 3.3 LYMPH# POC 12/30/2015 1.5 MONO #, POC 12/30/2015 0.6 EOS #, POC 12/30/2015 0.1 BASO #, POC 12/30/2015 0.1 CBC COMMENT, POC 12/30/2015 Imm Gran. Lft Shift. SODIUM, POC 12/30/2015 141 POTASSIUM, POC 12/30/2015 4.3 TOTAL CO2, POC 12/30/2015 28 CHLORIDE, POC 12/30/2015 103 GLUCOSE, POC 12/30/2015 80 CALCIUM TOTAL, POC 12/30/2015 9.4 BUN, POC 12/30/2015 14 CREATININE, POC 12/30/2015 0.8 LDH, POC 12/30/2015 397* MAGNESIUM, POC 12/30/2015 2.0 ALBUMIN, PLASMA (LAB) 12/30/2015 3.5 BILIRUBIN TOTAL 12/30/2015 0.3 BILIRUBIN DIRECT 12/30/2015 <0.1 ALK PHOS 12/30/2015 90 AST(SGOT) 12/30/2015 220* ALT (SGPT) 12/30/2015 454* TOTAL PROTEIN, PLASMA (L* 12/30/2015 6.6 AST CMNT 12/30/2015 Sl Hemo Assessment/Plan: 1. Hematology: Khurram Kelly is currently day +126 s/p tBuCy-conditioned unrel ated donor PBSC transplant for primary refractory AML. His most recent marrow studies [facility] 11/22/15 showed a hypocellular marrow (patchy 15%) with trilineage hematopoiesis and no m orphologic and immunologic evidence of acute leukemia.Karyotype 46,XY[19]. VNTR showed no de tectable host cells. 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 He began maintenance azacitidine on 11/01/15, currently c3, day 4. Peripheral blood counts recovering post-chemo; no blood products are required today. --> continue CBC q week --> c3 azacitidine [32 mg/m2 IV daily x 5 days] with plan to complete 6 cycles due to activ e disease at time of transplant 2. Bhbgs-gj-Huwm Disease: Skin bx due to mild rash [...] and began a tacrolimus taper on 12/16/15. Unclear whether new joint symptoms may be related to serosal involvement of GVHD. --> CK normal, aldolase slightly increased - not consistent with serosal involvement of GVH D given clinical course --> continue tacrolimus 0.5 mg bid --> continue oral non-absorbables --> decrease prednisone to 15 mg x 3 days then 10 mg x 7 days, then 10 mg alternating with 5 mg x 2 weeks. 3. Infectious Disease: Afebrile without localizing s/s infection. He continues prophylactic posaconazole, acyclovir and bactrim. Completed a treatment course of valganciclovir for CMV reactivation on 12/16/15. His most recent CMV PCR on 12/27/15 remains undetected. His most re cent serum IgG level on 12/13/15 was adequate at 514. Immune reconstitution panel collected showed normal total T cells with increased CD8+ T cell subsets, normal total NK cells, decreased B cells with decreased margarita B cells and minimal immune activation with CD4 coun t 385. Post transplant vaccines currently on hold due to azacitidine maintenance therapy. --> continue current antimicrobials --> due to CMV reactivation prior to day +100, monitor PCRs weekly through day +180, then q oweek through day +270 --> will d/c noxafil next month once on minimal IST 4. Fluid, Electrolyte and Nutrition: Intermittent nausea minimal after azacitidine, improvi ng over time. Has not been taking antiemetics; typically waits it out with relief. Eating we ll with adequate po fluid intake. His electrolytes are reviewed and are within acceptable li mits. --> continue a well balanced diet --> maintain hydration --> continue po Mg+Pro supplements as prescribed; hold for loose stools 5. Cardiovascular: Pretransplant TTE completed 08/10/15 showed a LVEF of 55-60%. CNI-induced HTN; generally well controlled with current meds. --> no change in meds indicated today --> anticipate HTN will improve as tacrolimus tapers 6. Knee pain - sudden onset - unusual for infection/avascular necrosis/GVHD. No history o f trauma - ? Related to short burst of running? Not consistent with GVHD. --> bilateral knee Xrays unremarkable --> rapid taper of prednisone 6. 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
--- OUTSIDE RECORDS SUMMARY | ~2019-05-17 | XMS | Encounter Summary ---
Demographics + + + | Address | [address] | | | [place] [address] | + + + | Home Phone [...] Team Providers + +------+ + | Care Web Specialist Name | Role | Phone | + +------+ + | Zayda Hinton | PCP | | + +------+ + Encounter Details +--------+ + + + + | Date | Type | Department | Care Team | Description | +--------+ + + + + | 05/17/ | Telephone | Hematology/Medical | Sara Henley, | | | 2019 | | [facility] at [place] | [facility] [address] | | | | | for [facility] & [facility] | [address] | | | | | [address] | [place], [place] | | | | | Mailcode: [place] | [address] | | | | | for Health and | [phone] | | | | | [facility] | | | | | | [place], [place] | | | | | | [address] | | | | | | [phone] | | | +--------+ + + + [...] 2019 | Visit | Malignancy | [address] [facility] [address] [facility] | | | | | | [address] | | | | | | [place], [place] | | | | | | [address] | | | | | | [phone] | | | | | | | | +--------+---------+ + + + documented as of this encounter Visit Diagnoses Not on filedocumented in this encounter"
--- OUTSIDE RECORDS SUMMARY | ~2019-05-17 | XMS | Encounter Summary ---
Demographics + + + | Address | [address] | | | [place] [address] | + + + | Home Phone [...] Team Providers + +------+ + | Care Burring Machine Operator Name | Role | Phone | + +------+ + | Zayda Hinton | PCP | | + +------+ + Encounter Details +--------+ + + + + | Date | Type | Department | Care Team | Description | +--------+ + + + + | 09/26/ | Pharmacy | Specialty Pharmacy | | | | 2015 | Visit | Services [address] | | | | | [address] | | | | | | [place], [place] | | | | | | [address] | | | | | | [phone] | | | +--------+ + + + [...] Rd | | | | | | [place], [place] | | | | | | [address] | | | | | | [phone] | | | | | | | | +--------+---------+ + + + documented as of this encounter Visit Diagnoses Not on filedocumented in this encounter"
--- OUTSIDE RECORDS SUMMARY | ~2019-05-17 | XMS | Encounter Summary ---
Demographics + + + | Address | [address] | | | [place] [address] | + + + | Home Phone [...] Team Providers + +------+ + | Care Residential Sales Name | Role | Phone | + [...] | | | | | | | [address] | | | | | | | [place] [address] | | | | | | | [place], | | | | | | | [place] | | | | | | | [address] | | | | | | | Phone: | | | | | | | [phone] | | | | | | | Fax: | | | | | | | [phone] | +--------+--------+ + + + + Encounter Details +--------+---------+ + + + | Date | Type | Department | Care Team | Description | +--------+---------+ + + + | 11/14/ | Office | Center for | Yari Garcia MD | Immunocompromised | | 2016 | Visit | Hematologic | [address] | state associated | | | | Malignancies at | [address] | with stem cell | | | | [address] | [place], [place] | transplant (HCC) | | | | [address] | [address] | (Primary Dx); Acute | | | | [address] Mailcode: | [phone] | myeloid leukemia | | | | [id number] [place] | | (AML), M4 (HCC)- | | | | [facility], | | primary induction | | | | [place] [address] | | failure | | | | [phone] | | | +--------+---------+ + + + [...] + + + | Blood Pressure | 121/85 | 11/15/2015 8:00 AM | | | | | PDT | | + + + + + | Pulse | 70 | 11/15/2015 8:00 AM | | | | | PDT | | + + + + + | Temperature | 36.9 C (98.5 F) | 11/15/2015 8:00 AM | | | | | PDT | | + + + + + | Respiratory Rate | 16 | 11/15/2015 8:00 AM | | | | | PDT | | + + + + + | Oxygen Saturation | 100% | 11/15/2015 8:00 AM | | | | | PDT | | + + + + + | Inhaled Oxygen | - | - | | | Concentration | | | | + + + + + | Weight | 85.2 kg (187 lb 12.8 | 11/15/2015 8:00 AM | | | | oz) | PDT | | + + + + + | Height | - | - | | + + + + + | Body Mass Index | 24.28 | 08/18/2015 4:35 PM | | | | | PST | | + + + + + documented in this encounter Patient Instructions Patient Instructions Yari Garcia MD - 11/15/2015 9:49 AM PDTJeremiah- You are doing really well with the Vidaza. Your counts are decreasing, particularly your platelets. You will likely need a platelet transfusion within the next week. Stop the bactrim for now - we will give you pentamidine instead until your counts recover. Be careful about anything that could cause trauma or bleeding. Continue your other medicines as prescribed. We will call you for adjustments in the tacrolimus. Continue the valcyte twice daily for now. In a few weeks, the dose will go down to once da varun. Try to minimize oxycodone use - it is habit forming and not a great drug for pain managemen t. Try using olanzapine 5 mg to see if that is enough for sleep. No changes in your prednisone this week. Call for any questions. documented in this encounter Progress Notes Yari Garcia MD - 11/15/2015 9:27 AM PDT 81 days post transplant 11/15/15 [facility] MD: Yari Garcia MD Primary Oncologist: Yari Garcia MD Diagnosis: AMML, primary refractory Transplant Date: 08/27/15 Donor: MM URD (DPB1 permissive antigen mismatch, male, [id number]) Identifying Data: Khurram Kelly is a 25 [...] his L ankle. He was evaluated at [facility] ED on 06/[address] angiogram negative [...] acute myelomonocytic leukemia. He was referred to [facility] for further evaluation and man agement of his newly dx'd AML. Pt was admitted to [facility] on 05/26/15. Peripheral blood was [...] CD34, variable CD56, variable CD117, and dim TA593-gzbdg mickey; promonocyte immunophenotype (70% by flow): CD11b, [...] conjunctival injection. 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 He is currently day +81 s/p transplant and presents to clinic today with spreading rash. Interim History: Khurram returns to clinic today feeling well overall. He has been eating and drinking well. Energy level continues to increase. Spent 12 hours over the weekend go ing to different fishing areas in the [facility]. Has noted increased emotional lability during chemotherapy - not so significant this time. Had minimal nausea with azacytidine, no vomiting. Stools remain soft, but not diarrhea. Rash nearly resolved - small grayish/pink brown over forearms - no active/bright lesions. Review of Systems Constitutional: Negative for fever, chills and malaise/fatigue. HENT: Negative for headaches, congestion and sore throat. Eyes: Negative for blurred vision. Respiratory: Negative for cough and shortness of breath. Cardiovascular: Negative for chest pain and leg swelling. Gastrointestinal: Positive for nausea. Negative for vomiting, abdominal pain and diarrhea. Genitourinary: Negative for dysuria. Musculoskeletal: Positive for myalgias (mild/moderate joint pain/stable) and joint pain (bi lat knees, markedly improved). Negative for falls. Skin: Positive for rash. Negative for itching. Neurological: Negative for dizziness, tingling, tremors and weakness. Endo/Heme/Allergies: Does not bruise/bleed easily. Psychiatric/Behavioral: Negative for depression. The patient is not nervous/anxious. All other systems reviewed and are negative. Current Outpatient Prescriptions Medication Sig ALPRAZolam 0.5 mg oral tablet Take 2 tablets by mouth three times daily as needed for a nxiety. amLODIPine 5 mg oral tablet Take one-half tablet by mouth once daily. beclomethasone 1 mg/mL oral suspension (compound) Take 1 mL by mouth four times daily. budesonide 3 mg oral capsule,delayed,extend.release Take 1 capsule by mouth three times daily. Lactulose 10 gram oral packet Take 10 grams (one packet) by mouth twice daily as needed (constipation). OLANZapine (ZYPREXA) 10 mg oral tablet Take 1 tablet by mouth once daily at bedtime. omeprazole 20 mg oral capsule,delayed release(DR/EC) Take 1 capsule by mouth before babak akfast. ondansetron 4 mg oral tablet Take 1 to 2 tablets by mouth every twelve hours as needed for nausea/vomiting. oxyCODONE, immediate release, 5 mg oral tablet Take 2 tablets by mouth every six hours as needed for severe pain. Decrease to 5 mg (1 tablet) per dose when pain is under better c ontrol. posaconazole DR 100 mg oral tablet,delayed release (DR/EC) Take 3 tablets by mouth once daily. predniSONE 10 mg oral tablet Take 10 mg (one tablet) by mouth once daily senna-docusate 8.6-50 mg oral tablet Take 1 tablet by mouth two times daily. tacrolimus 0.5 mg oral capsule Take 1.5 mg (one 1 mg capsule plus one 0.5 mg capsule) b y mouth in the morning and 1 mg (one 1 mg capsule) in the evening tacrolimus 1 mg oral capsule Take 1.5 mg (one 1 mg capsule plus one 0.5 mg capsule) by mouth in the morning and 1 mg (one 1 mg capsule) in the evening triamcinolone acetonide 0.1 % topical cream Apply to affected area three times daily. A pply thin film to affected areas. valGANciclovir 450 mg oral tablet Take 2 tablets by mouth two times daily. No current facility-administered medications for this visit. Allergies Allergen Reactions Chlorhexidine Towelette Rash PAVAN cloths - ok to use Chloraprep for dresssing change per pt. Filed Vitals: 11/15/2015 8:00 AM Weight: 85.186 kg (187 lb 12.8 oz) BP: 121/85 Pulse: 70 Temp: 36.9 C (98.5 F) TempSrc: Oral Resp: 16 SpO2: 100% BMI: 24.28 kg/(m^2) Physical Exam Constitutional: He is well-developed, [...] Skin is warm and dry. Rash (faint pink macular rash over forearms, knees. NOthing br ight. ) noted. Psychiatric: Mood, memory and affect normal. Vitals reviewed. CVC: Trifusion intact to R ant chest wall without erythema, induration Lab Results Component Value Date WBC 5.2 11/15/2015 HB 12.2 11/15/2015 HCT 35.8 11/15/2015 PLT 28 11/15/2015 MCV 102.3 11/15/2015 RDW 57.4 09/30/2015 Lab Results Component Value Date BICARB 25 11/15/2015 TBILI 0.2* 11/15/2015 CA 9.5 11/15/2015 CL 106 11/15/2015 CR 0.7 11/15/2015 GLU 156* 11/15/2015 AP 53 11/15/2015 TP 6.8 11/15/2015 BUN 18 11/15/2015 ALB 3.9 11/15/2015 AST 35 11/15/2015 NA 141 11/15/2015 K 3.7 11/15/2015 ALT 112* 11/15/2015 Assessment/Plan: 1. 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 WBC, plt count decreased over the l ast week likely secondary to ongoing valganciclovir therapy and azacitidine. His most recen t marrow studies completed 09/27/15 showed a hypocellular marrow (30%) with trilineage hemato poiesis, < 2% blasts. Karyotype 46,XY [20]. VNTR showed no detectable host cells. Genetrails negative for previous NRAS mutation however showed a new IL7R variant (possibly a benign ge rmline polymorphism of donor origin). He began maintenance azacitidine on 11/01/15, currentl y c1, day 15. --> continue to monitor CBC 2x/week - anticipate will need platelets later this week --> avoid neupogen until post day +100 due to high risk disease unless active infection --> plan for repeat marrow studies prior to initiation of c2 of azacitidine [scheduled for 11/22/15] 2. Mrljh-nt-Jwpk Disease: Pt developed a rash early post-transplant. Skin bx 08/27/15 show ed subtle vacuolar interface dermatitis most c/w early mild GvHD. Rash progressed to ~56% BS A at worst on 09/14; prednisone 1 mg/kg was initiated. He initially responded but flared duri ng taper. He has since been able to taper prednisone to 10 mg po daily. Rash mainly fading but new lesions to BLE [very patchy, below knee only]. He also developed low-level nausea an d abd discomfort concerning for GvHD, empirically treated with oral non-absorbables with res olution. He continues therapeutic tacrolimus. --> adjust tacrolimus dose to maintain a trough level of 5 to 10 (level 12.8 today, will de crease to 1.0 mg bid) --> continue oral non-absorbables --> no change in steroid dosing today --> continue triamcinolone cream BID, apply to areas of rash including BLE Acute GvHD Staging: Skin: Grade 1 Gut: Grade 0 Liver: Grade 0 Overall stage: 1 3. Infectious Disease: Afebrile without localizing s/s infection. He continues prophylact ic posaconazole and bactrim along with valganciclovir due to CMV reactivation. His CMV PCRs remain positive, as below. His most recent serum IgG level on 11/01/15 was adequate at 480. --> once pt has used his current supply of posaconazole, ok to change back to fluconazole 4 00 mg po daily if prednisone dose remains < 20 mg po daily --> continue valganciclovir until CMV PCR undetected x 2 consecutive tests, then decrease t o 900 mg po daily x 2 weeks --> due to CMV reactivation prior to day +100, monitor PCRs weekly through day +180, then q oweek through day +270 --> today's CMV testing is pending --> IgG levels qoweek through day +100 with IVIG 200 mg/kg IV for IgG < 300 --> immune reconstitution panel at day +90 --> hold post-transplant vaccines until azacitidine maintenance completed --> hold bactrim in setting of severe thromobcytopenia, plan for pentamidine to be given mo nthly until recovery of platelets - first dose this Lab Results Component Value Date CMVQUANTPCR Weak Positive* 11/08/2015 CMVQUANTPCR 440* 11/01/2015 CMVQUANTPCR 1300* 10/25/2015 CMVQUANTPCR Weak Positive* 10/18/2015 4. Fluid, Electrolyte and Nutrition: Appetite remains good, decreased with tapering of pre dnisone but continues to eat well with adequate po fluid intake. Denies c/o N/V/D. His elec trolytes are reviewed and are within acceptable limits. --> continue low bacteria diet through day +100 --> maintain hydration 5. Cardiovascular: Pretransplant TTE completed 08/10/15 showed a LVEF of 55-60%. CNI-induc ed HTN, well controlled with current medications. --> continue current medications 6. Psychosocial: Hx depression. Trialed zoloft but felt he was more withdrawn with this m edication. Notes intermittent anxiety, insomnia. Symptoms well controlled with xanax prn, o lanzapine qhs. --> continue current meds 7. Follow up --> continue twice weekly labs and infusions/transfusions as needed --> once weekly provider visits - BMBx next week to assess disease response/day 90 marrow Yari Garcia MD, MS Embossing Press Operatorbundle helper [facility] [address] [place] [address] documented in this enc ounter Plan of [...] Rd | | | | | | [place], [place] | | | | | | [address] | | | | | | [phone] | | | | | | | | +--------+---------+ + + + documented as of this encounter Visit Diagnoses + + | Diagnosis | + + | 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) - Primary | + + | Acute myeloid leukemia (AML), M4 (HCC)- primary induction failure | + + documented in this encounter"
--- OUTSIDE RECORDS SUMMARY | ~2019-05-17 | XMS | Encounter Summary ---
Demographics + + + | Address | [address] | | | [place] [address] | + + + | Home Phone [...] Team Providers + +------+ + | Care Beer Merchant Name | Role | Phone | + +------+ + | Pending Pcp Addition | PCP | Unavailable | + +------+ + Reason for Visit + + + | Reason | Comments | + + + | Lab Draw | [facility] | + + + | Chemotherapy | [...] | | | myelomonocyt | [address] | [place] [address] | | | | | ic leukemia, | [facility] | [facility] | | | | | not having | [address] | [address] | | | | | achieved | [place], [place] | Rd Mailcode: | | | | | remission | [address] | [id number] | | | | | Procedures | Phone: | [facility] | | | | | [place] | [phone] | [facility] | | | | | AZACITIDINE | Fax: | [place], [place] | | | | | INJECTION, 1 | [phone] | [address] | | | | | [place] | | Phone: | | | | | CHM,IV | | [phone] | | | | | INFSN,1 HR | | Fax: | | | | | [place] [facility],IV | | [phone] | | | | | INFSN,ADDL | | | | | | | HR Vidaza | | | +--------+---------+ + + + + Encounter Details +--------+ + + + + | Date | Type | Department | Care Team | Description | +--------+ + + + + | 12/28/ | Clinical | Center for | | Lab Draw | | 2016 | Support | Hematologic | | ([facility]); | | | Staff | Malignancies at [facility] | | Chemotherapy | | | | [address] | | (Vidaza) | | | | [place] Mailcode: | | | | | | [id number] | | | | | | [place], | | | | | | [place] [address] | | | | | | [phone] | | | +--------+ + + + [...] + + + | Blood Pressure | 128/81 | 12/29/2015 8:40 AM | | | | | PDT | | + + + + + | Pulse | 100 | 12/29/2015 8:40 AM | | | | | PDT | | + + + + + | Temperature | 36.9 C (98.5 F) | 12/29/2015 8:40 AM | | | | | PDT | | + + + + + | Respiratory Rate | 18 | 12/29/2015 8:40 AM | | | | | PDT | | + + + + + | Oxygen Saturation | 98% | 12/29/2015 8:40 AM | | | | | PDT | | + + + + + | Inhaled Oxygen | - | - | | | Concentration | | | | + + + + + | Weight | 87.7 kg (193 lb 5.5 | 12/29/2015 8:40 AM | | | | oz) | PDT | | + + + + + | Height | - | - | | + + + + + | Body Mass Index | 24.99 | 08/18/2015 4:35 PM | | | | | PST | | + + + + + documented in this encounter Progress Notes Rupa Lantigua RN - 12/29/2015 8:54 AM PDT Chemotherapy Nurse Note Name: Khurram [place] Date: 12/29/2015 Physician: Yari Garcia MD Allergies: Khurram is allergic to chlorhexidine towelette. Pre-Chemotherapy Pain Score: Patient reports a pain level of 3 today. He reports that his knee pain has decreased and he is able to walk without much difficulty. Nursing Assessment: Arunadaza, Day #3, Cycle #3 Fever: no; Diarrhea: no; SOB / Cough: no; Nausea / Vomiting: no; Anemia / Fatigue: no; Cons tipation: no; Edema: no; S/S Bleeding: no; Mucositis: yes - slight "ridges" to side of ji e- states that he will start using Saline rinses ; Urinary: no; Neuropathy: no; Rash: no. H e reports that he is eating well and drinking two liters of fluids daily. Labs: Lab Results Component Value Date WBC 8.8 12/27/2015 HB 14.0 12/27/2015 HCT 40.4* 12/27/2015 PLT 90* 12/27/2015 BUN 13 12/27/2015 CR 0.6* 12/27/2015 For Treatment Done in Clinic Today: see MAR Narrative: Patient ambulatory- accompanied by his . Tri-Fusion accessed per protocol. Good blood return noted. Appropriate waste discarded. Liver set drawn and sent per orders. Tri-Fusion pulse flushed with 20 mL NS- red lumen. Bl ue and white lumens pulse flushed with 10 ml NS and heparin 50 units- each lumen. Patient t o have Liver set drawn very visit per Dr. Garcia- watching liver enzymes for awhile. Pre-medicated with Zofran 8 mg po per orders. Chemotherapy was checked by 2 RNs. Vidaza 7 0 mg IV was infused per chemotherapy protocol and completed without adverse event. Positive blood return noted pre and post infusion. Tri-Fusion pulse flushed with 20 ml NS and Hepar in 50 units- red lumen. For infusion details, see MAR. Assessment: Tolerated procedure. Patient discharged from clinic, left ambulatory- accompan ied by his . RTC tomorrow for labs, Vidaza, dressing change and follow up with Yari Garcia MD. Post - Chemotherapy Pain Score: 2 Rupa Lantigua, ZAFAR documented in this enco unter Plan of [...] 2019 | Visit | Malignancy | [address] [facility] | | | | | | [address] | | | | | | [place], [place] | | | | | | [address] | | | | | | [phone] | | | | | | | | +--------+---------+ + + + documented as of this encounter Procedures + +--------+ + + + | Procedure Name | Priori | Date/Time | Associated Diagnosis | Comments | | | ty | | | | + +--------+ + + + | LIVER SET | Urgent | 12/29/2015 | S/P allogeneic | Results for this | | (AST,ALT,BILI | | 8:45 AM | bone marrow | procedure are [...] + | TREATMENT PARAMETERS | Routin | 12/29/2015 | 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:40 AM | leukemia (AML), 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 | | | | | | induction failure | | + +--------+ + + + | TREATMENT PARAMETERS | Routin | 12/29/2015 | 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:40 AM | leukemia (AML), 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 | | | | | | induction failure | | + +--------+ + + + | TREATMENT PARAMETERS | Routin | 12/29/2015 | 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:40 AM | leukemia (AML), M4 | | | | | PDT | ([facility])- primary | | | | | | induction failure | | + +--------+ + + + | TREATMENT PARAMETERS | Routin | 12/29/2015 | 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:40 AM | leukemia (AML), M4 | | | | | PDT | ([facility])- primary | | | | | | induction failure | | + +--------+ + + + | TREATMENT PARAMETERS | Routin | 12/29/2015 | 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:40 AM | leukemia (AML), M4 | | | | | PDT | ([facility])- primary | | | | | | induction failure | | + +--------+ + + + | NURSING | Routin | 12/29/2015 | S/P allogeneic | | | COMMUNICATION #5 - | e | 8:40 AM | bone marrow | | | [facility] | | PDT | transplant (HCC) | 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 | | + +--------+ + + + | NURSING | Routin | 12/29/2015 | S/P allogeneic | | | COMMUNICATION #4 - | e | 8:40 AM | bone marrow | | | [facility] | | PDT | transplant (HCC) | 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 | | + +--------+ + + + | NURSING | Routin | 12/29/2015 | S/P allogeneic | | | COMMUNICATION #3 - | e | 8:40 AM | bone marrow | | | [facility] | | PDT | transplant (HCC) | 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 | | + +--------+ + + + | NURSING | Routin | 12/29/2015 | S/P allogeneic | | | COMMUNICATION #3 - | e | 8:40 AM | bone marrow | | | [facility] | | PDT | transplant (HCC) | 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[facility])- primary | | | | | | induction failure | | + +--------+ + + + | NURSING | Routin | 12/29/2015 | S/P allogeneic | | | COMMUNICATION #2 - | e | 8:40 AM | bone marrow | | | [facility] | | PDT | transplant (HCC) | 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[facility])- primary | | | | | | induction failure | | + +--------+ + + + | NURSING | Routin | 12/29/2015 | S/P allogeneic | | | COMMUNICATION #2 - | e | 8:40 AM | bone marrow | | | [facility] | | PDT | transplant (HCC) | 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 | | + +--------+ + + + | NURSING | Routin | 12/29/2015 | S/P allogeneic | | | COMMUNICATION #1 - | e | 8:40 AM | bone marrow | | | [facility] | | PDT | transplant (HCC) | 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[facility])- primary | | | | | | induction failure | | + +--------+ + + + | NURSING | Routin | 12/29/2015 | S/P allogeneic | | | COMMUNICATION #1 - | e | 8:40 AM | bone marrow | | | [facility] | | PDT | transplant (HCC) | 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 | | + +--------+ + + + | GUIDELINES FOR | Routin | 12/29/2015 | S/P allogeneic | | | ORDERING #1 - [facility] | e | 8:40 AM | bone marrow | | | | | PDT | transplant (HCC) | 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 | | + +--------+ + + + | TREATMENT PARAMETERS | Routin | 12/29/2015 | S/P allogeneic | | | #1 - [facility] | e | 8:40 AM | bone marrow | | | | | PDT | transplant (HCC) | 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[facility])- primary | | | | | | induction failure | | + +--------+ + + + | TREATMENT PARAMETERS | Routin | 12/29/2015 | S/P allogeneic | | | #1 - [facility] | e | 8:40 AM | bone marrow | | | | | PDT | transplant (HCC) | 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 | | + +--------+ + + + | TREATMENT PARAMETERS | Routin | 12/29/2015 | S/P allogeneic | | | #1 - [facility] | e | 8:40 AM | bone marrow | | | [...] LIVER SET (AST,ALT,BILI TOTAL,BILI DIRECT,ALK PHOS,ALB,PROT TOTAL) (12/29/2015 8:45 AM PDT ) + +---------+ + + + | Component | Value | Ref Range | Performed | Pathologist | | | | | At | Signature | + +---------+ + + + | ALBUMIN, | 3.5 | 3.5 - 4.7 g/dL | [facility] [...] +---------+ + + + | AST(SGOT) | 73 (H) | <=41 U/L | [facility] | | | | | | LABORATORY | | | | | | SERVICES, | | | | | | CORE | | + +---------+ + + + | ALT (SGPT) | 188 (H) | <=60 U/L | [facility] | [...] | + + + + + | [facility] | [address] | [place] [address] | | | INDRA SHARIF | WALLY [...] 70 mg in | New Bag | 12/29/19 | 70 mg | 214 | Central | | NaCl 0.9 % IV 70 mg (rounded | | 16 9:45 | | mL/hr | Line | | from 67.84 mg = 32 mg/m2 | | AM PDT | | | | | 2.12 m2 Treatment plan recorded | | | | | | | BSA), intravenous, Administer | | | | | | | over 30 Minutes, ONCE, 1 dose, | | | | | | | 12/29/15 at 0915, HIGH RISK | | | | | | | MEDICATION-CHEMOTHERAPY | | | | | | | Administration must be completed | | | | | | | within 1 hour of preparation., | | | | | | + +---------+ +-------+-------+ + +---+---+ | | | +---+---+ + +-------+ + +---+ + | heparin 10 unit/mL IV flush | Given | 12/29/19 | 50 Units | | Central | | syringe 50 Units 50 Units, | | 16 10:25 | | | Line | | Intracatheter, NEEDED, 3 | | AM PDT | | | | | doses, Starting 12/29/15 at | | | | | | | 0854, Until Sun12/29/15 at 1025, | | | | | | | line patency | | | | | | + +-------+ + +---+ + +-------+ + +---+ + | Given | 12/29/19 | 50 Units | | Central | | | 16 8:46 | | | Line | | | AM PDT | | | | +-------+ + +---+ + | Given | 12/29/19 | 50 Units | | Central | | | 16 8:45 | | | Line | | | AM PDT | | | | +-------+ + +---+ + +---+---+ | | | +---+---+ + +-------+ +------+---+---+ | ondansetron (ZOFRAN) tablet 8 | Given | 12/29/19 | 8 mg | | | | mg 8 mg, oral, ONCE, 1 dose, Wed | | 16 9:02 | | | | | 12/29/15 at 0900 | | AM PDT | | | | + +-------+ +------+---+---+ +---+---+ | | | +---+---+ documented in this encounter
--- OUTSIDE RECORDS SUMMARY | ~2019-05-17 | XMS | Encounter Summary ---
Demographics + + + | Address | [address] | | | [place] [address] | + + + | Home Phone [...] Team Providers + +------+ + | Care Blow Molding Machine Tender Name | Role | Phone | + +------+ + | Pending Pcp Addition | PCP | Unavailable | + +------+ + Reason for Visit + + + | Reason | Comments | + + + | Schedule labs | PICC | + + + | Transfusion | PRBCs / Plts | + + + | Dressing change [...] | | | | | | [place], | | | | | | | [place] | | | | | | | [address] | | | | | | | Phone: | | | | | | | [phone] | | | | | | | Fax: | | | | | | | [phone] | +--------+--------+ + + + + Encounter Details +--------+ + + + + | Date | Type | Department | Care Team | Description | +--------+ + + + + | 08/02/ | Clinical | [facility] for | | Schedule labs | | 2016 | Support | Hematologic | | (PICC); Transfusion | | | Staff | [facility] at [facility] | | (PRBCs / Plts); | | | | [address] | | Dressing change | | | | Wally Burger Mailcode: | | | | | | [id number] [place] | | | | | | [place], | | | | | | [place] [address] | | | | | | [phone] | | | +--------+ + + + [...] + + + | Blood Pressure | 110/71 | 08/02/2015 3:03 PM | | | | | PST | | + + + + + | Pulse | 52 | 08/02/2015 3:03 PM | | | | | PST | | + + + + + | Temperature | 36.7 C (98.1 F) | 08/02/2015 3:03 PM | | | | | PST | | + + + + + | Respiratory Rate | 16 | 08/02/2015 3:03 PM | | | | | PST | | + + + + + | Oxygen Saturation | 100% | 08/02/2015 3:03 PM | | | | | PST [...] + documented in this encounter Progress Notes Madie Jyoti, RN - 08/02/2015 11:24 AM PST Patient reports he is feeling well today. Khurram has no complaint, but states having noah e petechia on his BLE. The patient denies colds, flu, fever, infection, nausea, vomiting, di arrhea, constipation, signs or symptoms of anemia, fatigue, neuropathy, mucositis, edema, sk in rash, urinary issues, and signs or symptoms of bleeding. The patient reports that they ar e eating okay. States that he needs to be frequently reminded to eat. Khurram is drinking a t least two liters of fluid daily. PICC intact to left anterior chest wall without erythema or induration. Dressing removed, skin intact without s/s exit site or tunnel infection. Using a Central Line Dressing Change kit, site cleansed with Chloraprep. Skin prep applied prior to dressing application. Biop atch applied with SorbaView dressing. Positive pressure valves changed to each port. All lumens pulse flushed with 10 mL NS. Patient tolerated procedure without difficulty. VAD Lab Draw: PICC accessed per protocol. Good blood return noted. Appropriate waste discarded. Labs d rawn and sent. PICC pulse flushed with 20 mL NS. Patient scheduled for provider visit lei muniz with Dr. Garcia at 1140. Lab Results Component Value Date PLT 3 08/02/2015 Orders to transfuse platelet product for a [...] 25 mg, then received 1 unit of platelets per Pro vider s orders. Transfusion was tolerated well without complication. Frequent vital sign s were monitored throughout the transfusion and reviewed by me. For transfusion details, se barrera ONC Lines & Transfusions doc flowsheet. Lab Results Component Value Date HCT 20.8 08/02/2015 HB 7.5 08/02/2015 Orders to transfuse PRBC product for a [...] received 25 mg PO Benadryl prior to platelet transfu cricket. He received 1 unit of PRBCs per Provider s orders. Transfusion was tolerated well without complication. Frequent vital signs were monitored throughout the transfusion and re viewed by me. For transfusion details, see ONC Lines & Transfusions doc flowsheet. Pt discharged from clinic. Left clinic Ambulatory accompanied by spouse. 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 | + +--------+ + + + | TREATMENT PARAMETERS | Routin | 08/02/2015 | Acute myeloid | | | #1 - BEACON | e | 11:27 AM | leukemia (AML), M4 | | | | | PST | ([facility]) | | + +--------+ + + + | TREATMENT PARAMETERS | Routin | 08/02/2015 | Acute myeloid | | | #1 - BEACON | e | 11:27 AM | leukemia (AML), M4 | | | | | PST | ([facility]) | | + +--------+ + + + | PRODUCT - PLATELET | Routin | 08/02/2015 | Acute myeloid | Results for this | | PHERESIS | e | 11:25 AM | leukemia (AML), M4 | procedure are in the | | LEUKOREDUCED | | PST | ([facility]) | results section. | + +--------+ + + + | CMP, POC (BMP+LFT) | Routin | 08/02/2015 | Acute myeloid | Results for this | | | e | 11:19 AM | leukemia (AML), M4 | procedure are in the | | | | PST | ([facility]) | results section. | + +--------+ + + + | CBC+DIFF,POC | Routin | 08/02/2015 | Acute myeloid | Results for this | | | e | 11:18 AM | leukemia (AML), M4 | procedure are in the | | | | PST | ([facility]) | results section. | + +--------+ + + + | ANTIBODY SCREEN | Routin | 08/02/2015 | Acute myeloid | Results for this | | | e | 10:52 AM | leukemia (AML), M4 | procedure are in the | | | | PST | ([facility]) | results section. | + +--------+ + + + | TYPE AND SCREEN | Routin | 08/02/2015 | Acute myeloid | Results for this | | | e | 10:52 AM | leukemia (AML), M4 | procedure are in the | | | | PST | ([facility]) | results section. | + +--------+ + + + | ABO & RH TYPE | Routin | 08/02/2015 | Acute myeloid | Results for this | | | e | 10:52 AM | leukemia (AML), M4 | procedure are in the | | | | PST | ([facility]) | results section. | + +--------+ + + + | LDH TOTAL, PLASMA | Routin | 08/02/2015 | Acute myeloid | Results for this | | | e | 10:52 AM | leukemia (AML), M4 | procedure are in the | | | | PST | ([facility]) | results section. | + +--------+ + + + documented in this encounter Results PRODUCT - RED CELLS LEUKOREDUCED (08/02/2015 11:28 AM PST) + + + + + [...] + + + + | PRODUCT | [id number] | | [facility] | | | UNIT [...] + + + + | EXPIRATION | [id number] | | [facility] | | | DATE [...] + + + + | BLOOD | [id number] | | [facility] | | | PRODUCT [...] | + + + + + | [facility] | [address] | [place] [address] | | | PATHOLOGY | [address] | | | + + + + + PRODUCT - PLATELET PHERESIS LEUKOREDUCED (08/02/2015 11:25 AM PST) + + + + + [...] + + + + | PRODUCT | [id number] | | [facility] | | | UNIT [...] + + + + | EXPIRATION | [id number] | | [facility] | | | DATE [...] + + + + | BLOOD | [id number] | | [facility] | | | PRODUCT [...] | + + + + + | [facility] | [address] | [place] [address] | | | PATHOLOGY | [address] | | | + + + + + CMP METABOL,POC (08/02/2015 11:19 AM PST) + +---------+ + + + [...] +---------+ + + + | CREATININE, | 1.3 | 0.7 - 1.3 mg/dL | [facility] - | | | POC | | | [facility] | | | | | | [facility] | | | | | | OF CARE | | | | | | TESTS | | + +---------+ + + + | ALK PHOS, | 60 | 41 - 99 U/L | [facility] - | | | CMP POC | | | [facility] | | | | | | [facility] | | | | | | OF CARE | | | | | | TESTS | | + +---------+ + + + | ALT, CMP | 28 | 0 - 60 U/L | [facility] [...] +---------+ + + + | PROTEIN | 6.8 | 6.1 - 7.9 g/dL | [facility] [...] - [facility] | [address] | [place], [place] | | | [facility] OF CARE | [facility] | [address] | | | TESTS | | | | + + + + + CBC+DIFF,POC (08/02/2015 11:18 AM PST) + + + + [...] + + + | RBC POC | 2.64 (L) | 4.50 - 6.00 | [facility] [...] + + + | HCT POC | 20.8 (L) | 41.0 - 53.0 % | [facility] - | | | | | | [facility] | | | | | | [facility] | | | | | | OF CARE | | | | | | TESTS | | + + + + + + | MCV POC | 78.8 (L) | 80.0 - 96.0 fL | [facility] - | | | | | | [facility] | | | | | | [facility] | | | | | | OF CARE | | | | | | TESTS | | + + + + + + | MCH POC | 28.4 (L) | 28.5 - 32.3 pg | [...] + + | RDW SD, POC | 30.0 (L) | 35.1 - 46.3 fL | [facility] - | | | | | | [facility] | | | | | | [facility] | | | | | | OF CARE | | | | | | TESTS | | + + + + + + | PLT POC | 3 (AA) | 150 - 400 | [facility] - | | | | | 10*3/uL | [facility] | | | | | | [facility] | | | | | | OF CARE | | | | | | TESTS | | + + + + + + | MPV POC | 11.7 | 9.7 - 12.3 fL | [facility] - | | | | | | [facility] | | | | | | [facility], POINT | | | | | | OF CARE | | | | | | TESTS | | + + + + + + | NEUTROPHIL% | ---- | 50.0 - 70.0 % | [facility] - | | | POC | | | [facility] | | | | | | [facility] | | | | | | OF CARE | | | | | | TESTS | | + + + + + + | LYMPH% POC | ---- | 18 - 42 % | [facility] - | | | | | | [facility] | | | | | | [facility] | | | | | | OF CARE | | | | | | TESTS | | + + + + + + | MONO %, POC | ---- | 3.5 - 9.0 % | [facility] - | | | | | | [facility] | | | | | | [facility] POINT | | | | | | OF CARE | | | | | | TESTS | | + + + + + + | EOS %, POC | ---- | 1.0 - 3.0 % | [facility] - | | | | | | [facility] | | | | | | [facility], POINT | | | | | | OF CARE | | | | | | TESTS | | + + + + + + | BASO %, POC | ---- | 0.0 - 2.0 % | [facility] - | | | | | | [facility] | | | | | | [facility], POINT | | | | | | OF CARE | | | | | | TESTS | | + + + + + + | NEUTROPHIL# | ---- | 1.8 - 7.7 | [facility] - | | | POC | | 10*3/uL | [facility] | | | | | | [facility], POINT | | | | | | OF CARE | | | | | | TESTS | | + + + + + + | LYMPH# POC | ---- | 1.0 - 4.8 | [facility] - | | | | | 10*3/uL | [facility] | | | | | | [facility] | | | | | | OF CARE | | | | | | TESTS | | + + + + + + | MONO #, POC | ---- | 0.1 - 0.9 | [facility] - | | | | | 10*3/uL | [facility] | | | | | | [facility] | | | | | | OF CARE | | | | | | TESTS | | + + + + + + | EOS #, POC | ---- | 0.0 - 0.5 | [facility] - | | | | | 10*3/uL | [facility] | | | | | | [facility] | | | | | | OF CARE | | | | | | TESTS | | + + + + + + | BASO #, POC | ---- | 0.0 - 0.1 | [facility] - | | | | | 10*3/uL | [facility] | | | | | | [facility] | | | | | | OF CARE | | | | | | TESTS | | + + + + + + | CBC | WBC Abn Scat. | | [facility] - | | | [...] + + + | [facility] | [address] | [place], [place] | | | [facility] C[facility] | [facility] | [address] | | | TESTS | | | | + + + + + ANTIBODY SCREEN (08/02/2015 10:52 AM PST) + + + + + [...] [facility] | [address] | [place] [address] | | | SERVICES, | [address] | | | | TRANSFUSION MEDICINE | | | | + + + + + ABO & RH TYPE (08/02/2015 10:52 AM PST) + + + + + [...] [facility] | [address] | [place] [address] | | | SERVICES, | [address] | | | | TRANSFUSION MEDICINE | | | | + + + + + LDH TOTAL, PLASMA (08/02/2015 10:52 AM PST) + +---------+ + + + | Component | Value | Ref Range | Performed | Pathologist | | | | | At | Signature | + +---------+ + + + | LD TOTAL, | 115 | <=250 U/L | [facility] | | [...] | + + + + + | [facility] | [address] | [place] [address] | | | SERVICES, CORE | [facility] [...] +-------+------+------+ | diphenhydrAMINE (BENADRYL) | Given | 08/02/19 | 25 mg | | | | capsule 25 mg 25 mg, oral, EVERY | | 16 11:34 | | | | | 6 HOURS NEEDED, Starting Mon | | AM PST | | | | | 08/02/15 at 1127, Until Mon | | | | | | | 08/02/15 at 2123, allergic | | | | | | | reaction, as needed prior to | | | | | | | transfusion | | | | | | + +--------+ +-------+------+------+ +---+---+ | | | +---+---+ documented in this encounter"
--- OUTSIDE RECORDS SUMMARY | ~2019-05-17 | XMS | Encounter Summary ---
Demographics + + + | Address | [address] | | | [place] [address] | + + + | Home Phone [...] Team Providers + +------+ + | Care Cream Gatherer Name | Role | Phone | + +------+ + | Pending Pcp Addition | PCP | Unavailable | + +------+ + Encounter Details +--------+ + + + + | Date | Type | Department | Care Team | Description | +--------+ + + + + | 08/17/ | Investigative Analyst | Center for | Yari Garcia MD | | | 2016 | | Hematologic | [address] | | | | | Malignancies at | [address] | | | | | [facility] | [place], [place] | | | | | [address] | [address] | | | | | Debi [address] Mailcode: | [phone] | | | | | [id number] | | | | | | [place], | | | | | | [place] [address] | | | | | | [phone] | | | +--------+ + + + [...] 2019 | Visit | Malignancy | [address] [facility] | | | | | | [address] | | | | | | [place], [place] | | | | | | [address] | | | | | | [phone] | | | | | | | | +--------+---------+ + + + documented as of this encounter Visit Diagnoses Not on filedocumented in this encounter"
--- OUTSIDE RECORDS SUMMARY | ~2019-05-17 | XMS | Encounter Summary ---
Demographics + + + | Address | [address] | | | [place] [address] | + + + | Home Phone [...] Team Providers + +------+ + | Care Deputy Court Clerk Name | Role | Phone | + +------+ + | Pending Pcp Addition | PCP | Unavailable | + +------+ + Reason for Visit + + + | Reason | Comments | + + + | Lab Draw | [facility] | + + + | Dressing change | | + + + | Transplant follow-up [...] | | | | | | [place], | | | | | | | [place] | | | | | | | [address] | | | | | | | Phone: | | | | | | | [phone] | | | | | | | Fax: | | | | | | | [phone] | +--------+--------+ + + + + Encounter Details +--------+ + + + + | Date | Type | Department | Care Team | Description | +--------+ + + + + | 12/22/ | Clinical | [facility] | | Lab Draw | | 2016 | Support | Hematologic | | ([facility]); | | | Staff | [facility] at [facility] | | Dressing change; | | | | [address] | | Transplant follow-up | | | | Wally Burger Mailcode: | | | | | | [id number] [facility] | | | | | | [place], | | | | | | [place] [address] | | | | | | [phone] | | | +--------+ + + + [...] + + + | Blood Pressure | 140/100 | 12/23/2015 9:36 AM | | | | | PDT | | + + + + + | Pulse | 74 | 12/23/2015 9:36 AM | | | | | PDT | | + + + + + | Temperature | 36.9 C (98.4 F) | 12/23/2015 9:36 AM | | | | | PDT | | + + + + + | Respiratory Rate | 18 | 12/23/2015 9:36 AM | | | | | PDT | | + + + + + | Oxygen Saturation | 100% | 12/23/2015 9:36 AM | | | | | PDT | | + + + + + | Inhaled Oxygen | - | - | | | Concentration | | | | + + + + + | Weight | 85.9 kg (189 lb 6 | 12/23/2015 9:36 AM | | | | oz) | PDT | | + + + + + | Height | - | - | | + + + + + | Body Mass Index | 24.48 | 08/18/2015 4:35 PM | | | | | PST | | + + + + + documented in this encounter Progress Notes Rupa Lantigua RN - 12/23/2015 9:51 AM PDT INFUSION/TRANSFUSION NURSING NOTE Name: Khurram Kelly Date: 12/23/2015 Provider: Yari Garcia MD/ORLY Yanes Subjective: Patient reports that he continues to have intermittent nausea- no antiemetics n eeded. He states that he is eating well and drinking two liters of fluids daily. 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 He denies fevers, chills, vomiting, di arrhea, bleeding, SOB and chest pain. Past illnesses: Khurram has a past medical [...] Clinic Today refer to MAR Narrative: Patient ambulatory to clinic, accompanied by his . [facility] accessed per protocol. Good blood return noted. Appropriate waste discarded. Labs drawn and sent. [facility] pulse flushed with 20 mL NS and 5 mL of 10 units/mL Heparin - red lumen. Patient scheduled for provider visit today with ORLY Yanes. OB=797/100, HR=74 upon arrival. BP checked manually, GX=110/85. He reports that he did no t take his morning BP medication yet. TAC dose on taper- no level needed per orders. Pre-procedure pain level: 0 [facility] intact to left anterior chest wall without erythema or induration. Dressing rem meme, skin intact without s/s exit site or tunnel infection. Using a Central Line Dressing Change kit, site cleansed with Chloraprep (allergic to Chlorhexidine towelette- states that he does not have issues with the dressing kit prep). Skin prep applied prior to dressing ap plication. Biopatch applied with SorbaView dressing. Positive pressure valves changed to each port. White and Blue lumens pulse flushed with 5 mL of 10 units/mL Heparin. Patient to lerated procedure without difficulty. Post-procedure pain level: 0 Chemistries: Last 72 Hours (or 3 results): Recent Labs 12/23/15 0954 NA 139 K 3.6 CL 105 BICARB 26 BUN 11 CR 0.7 GLU 117* CA 9.8 MG 1.7* CBC with diff last 72 hours (or 3 results) Recent Labs 12/23/15 0949 WBC 6.7 HB 13.6 HCT 38.4* PLT 64* MONOPERC 7.5 BASOPERC 0.3 EOSPERC 0.3* No supportive care replacement needed per orders. Assessment: Tolerated procedure. Patient discharged from clinic, left ambulatory- accompan ied by his . RTC on 12/27/15 for labs and Vidaza. Rupa Lantigua, RN documented in this enco unter Plan [...] 2019 | Visit | Malignancy | [address] [facility] | | | | | | [address] | | | | | | [place], [place] | | | | | | [address] | | | | | | [phone] | | | | | | | | +--------+---------+ + + + documented as of this encounter Procedures + +--------+ + + + | Procedure Name | Priori | Date/Time | Associated Diagnosis | Comments | | | ty | | | | + +--------+ + + + | BMP + MAG, POC CHM | Routin | 12/23/2015 | S/P allogeneic | Results for this | | | e | 9:54 AM | bone marrow | procedure are in the | | | | PDT | transplant ([facility]) | results section. 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[facility])- primary | | | | | | induction failure | | + +--------+ + + + | CBC+DIFF,POC | Routin | 12/23/2015 | S/P allogeneic | Results for this | | | e | 9:49 AM | bone marrow | procedure are [...] + | CMV PCR | Routin | 12/23/2015 | S/P allogeneic | Results for this | | QUANTITATION, PLASMA | e | 9:40 AM | bone marrow | procedure are [...] + | LIVER SET | Urgent | 12/23/2015 | S/P allogeneic | Results for this | | (AST,ALT,BILI | | 9:40 AM | bone marrow | procedure are [...] + | TREATMENT PARAMETERS | Routin | 12/23/2015 | 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 | 9:29 AM | leukemia (AML), 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 | | | | | | induction failure | | + +--------+ + + + | TREATMENT PARAMETERS | Routin | 12/23/2015 | 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 | 9:29 AM | leukemia (AML), 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 | | | | | | induction failure | | + +--------+ + + + | TREATMENT PARAMETERS | Routin | 12/23/2015 | 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 | 9:29 AM | leukemia (AML), 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 | | | | | | induction failure | | + +--------+ + + + | TREATMENT PARAMETERS | Routin | 12/23/2015 | 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 | 9:29 AM | leukemia (AML), 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 | | | | | | induction failure | | + +--------+ + + + | TREATMENT PARAMETERS | Routin | 12/23/2015 | 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 | 9:29 AM | leukemia (AML), M4 | | | | | PDT | ([facility])- primary | | | | | | induction failure | | + +--------+ + + + | NURSING | Routin | 12/23/2015 | Acute myeloid | | | COMMUNICATION #3 - | e | 9:29 AM | leukemia (AML), M4 | | | [facility] | | PDT | (HCC)- primary | | | | | | induction failure | | + +--------+ + + + | NURSING | Routin | 12/23/2015 | Acute myeloid | | | COMMUNICATION #2 - | e | 9:29 AM | leukemia (AML), M4 | | | [facility] | | PDT | ([facility])- primary | | | | | | induction failure | | + +--------+ + + + | NURSING | Routin | 12/23/2015 | Acute myeloid | | | COMMUNICATION #1 - | e | 9:29 AM | leukemia (AML), M4 | | | [facility] | | PDT | ([facility])- primary | | | | | | induction failure | | + +--------+ + + + | GUIDELINES FOR | Routin | 12/23/2015 | S/P allogeneic | | | ORDERING #1 - [facility] | e | 9:29 AM | bone marrow | | | | | PDT | transplant (HCC) | 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 | | + +--------+ + + + | TREATMENT PARAMETERS | Routin | 12/23/2015 | Acute myeloid | | | #1 - [facility] | e | 9:29 AM | leukemia (AML), M4 | | | | | PDT | ([facility])- primary | | | | | | induction failure | | + +--------+ + + + | TREATMENT PARAMETERS | Routin | 12/23/2015 | Acute myeloid | | | #1 - [facility] | e | 9:29 AM | leukemia (AML), M4 | | | | | PDT | ([facility])- primary | | | | | | induction failure | | + +--------+ + + + documented in this encounter Results BMP + MAG, POC CHM (12/23/2015 9:54 AM PDT) + +---------+ + + + | Component | Value | Ref Range | Performed | Pathologist | | | | | At | Signature | + +---------+ + + + | SODIUM, POC | 139 | 134 - 143 | [facility] - | | | | | mmol/L | [facility] | | | | | | [facility] | | | | | | OF CARE | | | | | | TESTS | | + +---------+ + + + | POTASSIUM, | 3.6 | 3.4 - 5.0 | [facility] - [...] +---------+ + + + | GLUCOSE, | 117 (H) | 60 - 99 mg/dL | [...] | TOTAL, POC | | mg/dL | [facility] | | | | | [...] + + + | LDH, POC | 259 (H) | 0 - 206 U/L | [...] [facility] | [address] | [place], [place] | | | [facility] OF CARE | [address] | [address] | | | TESTS | | | | + + + + + CBC+DIFF,POC (12/23/2015 9:49 AM PDT) + + + + + + | Component | Value | Ref Range | Performed | Pathologist | | | | | At | Signature | + + + + + + | WBC POC | 6.7 | 4.4 - 11.0 | [facility] - [...] + + + | MCH POC | 36.0 (H) | 28.5 - 32.3 pg | [...] + + | RDW SD, POC | 52.7 (H) | 35.1 - 46.3 fL | [facility] - | | | | | | [facility] | | | | | | [facility] | | | | | | OF CARE | | | | | | TESTS | | + + + + + + | PLT POC | 64 (L) | 150 - 400 | [facility] - | | | | | 10*3/uL | [facility] | | | | | | [facility]INT | | | | | | OF CARE | | | | | | TESTS | | + + + + + + | MPV POC | 8.7 (L) | 9.7 - 12.3 fL | [facility] - | | | | | | [facility] | | | | | | [facility] | | | | | | OF CARE | | | | | | TESTS | | + + + + + + | NEUTROPHIL% | 61.3 | 50.0 - 70.0 % | [facility] - | | | POC | | | [facility] | | | | | | [facility] | | | | | | OF CARE | | | | | | TESTS | | + + + + + + | LYMPH% POC | 30.6 | 18 - 42 % | [facility] - | | | | | | [facility] | | | | | | [facility] | | | | | | OF CARE | | | | | | TESTS | | + + + + + + | MONO %, POC | 7.5 | 3.5 - 9.0 % | [facility] - | | | | | | [facility] | | | | | | [facility], POINT | | | | | | OF CARE | | | | | | TESTS | | + + + + + + | EOS %, POC | 0.3 (L) | 1.0 - 3.0 % | [...] + + + + | NEUTROPHIL# | 4.1 | 1.8 - 7.7 | [facility] - [...] - [facility] | [address] | [place], [place] | | | [facility] OF CARE | [facility] | [address] | | | TESTS | | | | + + + + + LIVER SET (AST,ALT,BILI TOTAL,BILI DIRECT,ALK PHOS,ALB,PROT TOTAL) (12/23/2015 9:40 AM PDT ) + +---------+ + + [...] +---------+ + + + | AST(SGOT) | 53 (H) | <=41 U/L | [facility] | | | | | | LABORATORY | | | | | | SERVICES, | | | | | | CORE | | + +---------+ + + + | ALT (SGPT) | 123 (H) | <=60 U/L | [facility] | [...] | + + + + + | [facility] | [address] | [place] [address] | | | SERVICES, CORE | [address] | | | + + + + + CMV PCR QUANTITATION, PLASMA (12/23/2015 9:40 AM PDT) + + + + + [...] 2 fold may not reflect true | [facility] | | biological changes and must [...] | | | characteristics determined by the [facility] | | | [facility] Diagnostic [facility]. It has not been cleared or approved by | | | the Food and Drug Administration. FDA approval is not required for | | | clinical use of this test, and therefore validation was done as | | | required under the requirements of the Clinical Laboratory Improvement | | | Act of 1988. The [facility] | | | Diagnostic Center is a fully licensed and/or accredited clinical | | | laboratory under CLIA, CAP, and the [facility]. | | + + + + + + + + | Performing | Address | City/State/[facility] | Phone Number | | Organization | | | | + + + + + | [facility] | [address] | [place] [address] | | | DIAGNOSTIC | [address] [...] 10 unit/mL IV flush | Given | 12/23/19 | 50 Units | | Central | | syringe 50 Units 50 Units, | | 16 9:47 | | | Line | | Intracatheter, NEEDED, 3 | | AM PDT | | | | | doses, Starting Lupe 12/23/15 at | | | | | | | 0949, Until Sun12/23/15 at 0947, | | | | | | | line patency | | | | | | + +--------+ + +------+ + +-------+ + +---+ + | Given | 12/23/19 | 50 Units | | Central | | | 16 9:46 | | | Line | | | AM PDT | | | | +-------+ + +---+ + | Given | 12/23/19 | 50 Units | | Central | | | 16 9:45 | | | Line | | | AM PDT | | | | +-------+ + +---+ + +---+---+ | | | +---+---+ documented in this encounter"
--- OUTSIDE RECORDS SUMMARY | ~2019-05-17 | XMS | Encounter Summary ---
Demographics + + + | Address | [address] | | | [place] [address] | + + + | Home Phone [...] Team Providers + +------+ + | Care Chief Business Officer Name | Role | Phone | [...] | | | | | | | [address] | | | | | | | [address] | | | | | | | [place], | | | | | | | [place] | | | | | | | [address] | | | | | | | Phone: | | | | | | | [phone] | | | | | | | Fax: | | | | | | | [phone] | +--------+--------+ + + + + Encounter Details +--------+---------+ + + + | Date | Type | Department | Care Team | Description | +--------+---------+ + + + | 05/01/ | Office | [facility] for | Yari Garcia MD | S/P allogeneic bone | | 2016 | Visit | Hematologic | [address] | marrow transplant | | | | Malignancies at | [address] | (HCC) (Primary Dx) | | | | [facility] | [place], [place] | | | | | [address] | [address] | | | | | [address] Mailcode: | [phone] | | | | | [id number] [address] | | | | | | [place], | | | | | | [place] [address] | | | | | | [phone] | | | +--------+---------+ + + + [...] + + + | Blood Pressure | 147/96 | 05/01/2016 8:00 AM | | | | | PDT | | + + + + + | Pulse | 99 | 05/01/2016 8:00 AM | | | | | PDT | | + + + + + | Temperature | 36.9 C (98.5 F) | 05/01/2016 8:00 AM | | | | | PDT | | + + + + + | Respiratory Rate | 16 | 05/01/2016 8:00 AM | | | | | PDT | | + + + + + | Oxygen Saturation | 100% | 05/01/2016 8:00 AM | | | | | PDT | | + + + + + | Inhaled Oxygen | - | - | | | Concentration | | | | + + + + + | Weight | 91.7 kg (202 lb 2.6 | 05/01/2016 8:00 AM | | | | oz) | PDT | | + + + + + | Height | - | - | | + + + + + | Body Mass Index | 25.67 | 01/25/2016 8:24 AM | | | | | PDT | | + + + + + documented in this encounter Patient Instructions Patient Instructions Yari Garcia MD - 05/01/2016 8:35 AM PDTFormatting of this note mi ght be different from the original. Khurram- You are doing well - your marrow shows that you are in remission! Next marrow will be at 1 year post transplant. Decrease your prednisone to 5 mg alternating with 0mg for the next 2 weeks, then STOP the p rednisone. We will start a tacrolimus taper 2 weeks after stopping the prednisone. Keep an eye on your skin and your bowels as you come on the prednisone. Make an appointment with [facility] - you will need to have some coping mechanisms long te rm. [facility] is a group that focus' on the non-clinical needs of our patients. You woul d benefit from meeting with them. You can call [phone]. You can ask for Opal short Next visit in 2 weeks Lab on 05/01/2016 Component Date Value GLUCOSE, PLASMA (LAB) 05/01/2016 128* BUN, PLASMA (LAB) 05/01/2016 9 CREATININE PLASMA (LAB) 05/01/2016 0.91 EGFR - GUYANESE 05/01/2016 >60 EGFR NON -GUYANESE 05/01/2016 >60 SODIUM, PLASMA (LAB) 05/01/2016 139 POTASSIUM, PLASMA (LAB) 05/01/2016 3.7 CHLORIDE, PLASMA (LAB) 05/01/2016 105 TOTAL CO2, PLASMA (LAB) 05/01/2016 27 CALCIUM, PLASMA (LAB) 05/01/2016 9.9 CALCIUM(ALB CORRECTED) 05/01/2016 9.8 BILIRUBIN TOTAL 05/01/2016 0.4 TOTAL PROTEIN, PLASMA (L* 05/01/2016 7.4 ALBUMIN, PLASMA (LAB) 05/01/2016 4.1 ALK PHOS 05/01/2016 78 AST(SGOT) 05/01/2016 50* ALT (SGPT) 05/01/2016 101* ANION GAP 05/01/2016 7 ANION GAP(ALB CORRECTED) 05/01/2016 6 POTASSIUM CMNT 05/01/2016 No Hemo BILI T CMNT 05/01/2016 No Hemo AST CMNT 05/01/2016 No Hemo MAGNESIUM,PLASMA 05/01/2016 2.0 PHOSPHORUS, PLASMA (LAB) 05/01/2016 3.0 URIC ACID, PLASMA (LAB) 05/01/2016 5.1 BILIRUBIN DIRECT 05/01/2016 <0.1 BILI D CMNT 05/01/2016 No Hemo LD TOTAL, PLASMA 05/01/2016 210 LD CMNT 05/01/2016 No Hemo WHITE CELL COUNT 05/01/2016 8.50 RED CELL COUNT 05/01/2016 4.38* HEMOGLOBIN 05/01/2016 14.5 HEMATOCRIT 05/01/2016 42.9 MCV 05/01/2016 97.9* MCHC 05/01/2016 33.8 RDW SD 05/01/2016 44.9 PLATELET COUNT 05/01/2016 180 MPV 05/01/2016 8.1* NRBC% 05/01/2016 0.0 NRBC# 05/01/2016 0.00 NEUTROPHIL % 05/01/2016 48.3* LYMPHOCYTE % 05/01/2016 41.1 MONOCYTE % 05/01/2016 6.4 EOS % 05/01/2016 3.2* BASO % 05/01/2016 0.4 IMMATURE GRANULOCYTE% 05/01/2016 0.6 NEUTROPHIL # 05/01/2016 4.12 LYMPHOCYTE # 05/01/2016 3.49 MONOCYTE # 05/01/2016 0.54 EOS # 05/01/2016 0.27 BASO # 05/01/2016 0.03 IMMATURE GRANULOCYTE# 05/01/2016 0.05* documented in this encounter Progress Notes Yari Garcia MD - 05/01/2016 8:16 AM PDT 05/01/16 249 days post [facility] Primary [facility] MD: Yari Garcia MD Primary Oncologist: Yari Garcia MD Diagnosis: AMML, primary refractory Transplant Date: 08/27/15 Donor: MM URD (DPB1 permissive antigen mismatch, male, [id number]) Identifying Data: Khurram Kelly is a 25 [...] his L ankle. He was evaluated at [facility] ED on 06/[address] angiogram negative [...] acute myelomonocytic leukemia. He was referred to [facility] for further evaluation and man agement of his newly dx'd AML. Pt was admitted to [facility] on 05/26/15. Peripheral blood was sent [...] CD34, variable CD56, variable CD117, and dim [id number] mickey; promonocyte immunophenotype (70% by flow): CD11b, [...] durin g taper. He is currently day +249 s/p transplant, s/p 6 cycles of azacitidine and returns to clinic today for scheduled follow-up. Interim History: Khurram returns to clinic today and is feeling good overall. He has been feeling strong, eating well, is trying to exercise regularly (doing a lot of [employer] in 170s), and has not had any recurrence of rash. No fevers/chills, no infectious compli cations. Still continues to struggle with anxiety management - particularly with going out crowds/so cialization. Does have relief with Xanax. Pleased with results of bone marrow biopsy - had been very anxious about results. Review of Systems Constitutional: Negative for fever, chills and malaise/fatigue. HENT: Negative for headaches, congestion and sore throat. Eyes: Negative for blurred vision. Respiratory: Negative for cough and shortness of breath. Cardiovascular: Negative for chest pain and leg swelling. Gastrointestinal: Negative for heartburn, nausea, vomiting, abdominal pain and diarrhea. Genitourinary: [...] narcotics. predniSONE 10 mg oral tablet Take 1 tablet (10 mg) by mouth every other day tacrolimus 0.5 mg oral [...] for dresssing change per pt. Filed Vitals: 05/01/2016 8:00 AM Weight: 91.7 kg (202 lb 2.6 oz) BP: 147/96 Pulse: 99 Temp: 36.9 C (98.5 F) TempSrc: Oral Resp: 16 SpO2: 100% PainSc: 0 - Zero BMI: 25.67 kg/(m^2) Physical Exam Constitutional: He is well-developed, well-nourished, and in no distress. No distress. HENT: Head: Normocephalic and atraumatic. Mouth/Throat: [...] and affect normal. Vitals reviewed. Lab on 05/01/2016 Component Date Value GLUCOSE, PLASMA (LAB) 05/01/2016 128* BUN, PLASMA (LAB) 05/01/2016 9 CREATININE PLASMA (LAB) 05/01/2016 0.91 EGFR - GUYANESE 05/01/2016 >60 EGFR NON -GUYANESE 05/01/2016 >60 SODIUM, PLASMA (LAB) 05/01/2016 139 POTASSIUM, PLASMA (LAB) 05/01/2016 3.7 CHLORIDE, PLASMA (LAB) 05/01/2016 105 TOTAL CO2, PLASMA (LAB) 05/01/2016 27 CALCIUM, PLASMA (LAB) 05/01/2016 9.9 CALCIUM(ALB CORRECTED) 05/01/2016 9.8 BILIRUBIN TOTAL 05/01/2016 0.4 TOTAL PROTEIN, PLASMA (L* 05/01/2016 7.4 ALBUMIN, PLASMA (LAB) 05/01/2016 4.1 ALK PHOS 05/01/2016 78 AST(SGOT) 05/01/2016 50* ALT (SGPT) 05/01/2016 101* ANION GAP 05/01/2016 7 ANION GAP(ALB CORRECTED) 05/01/2016 6 POTASSIUM CMNT 05/01/2016 No Hemo BILI T CMNT 05/01/2016 No Hemo AST CMNT 05/01/2016 No Hemo MAGNESIUM,PLASMA 05/01/2016 2.0 PHOSPHORUS, PLASMA (LAB) 05/01/2016 3.0 URIC ACID, PLASMA (LAB) 05/01/2016 5.1 BILIRUBIN DIRECT 05/01/2016 <0.1 BILI D CMNT 05/01/2016 No Hemo LD TOTAL, PLASMA 05/01/2016 210 LD CMNT 05/01/2016 No Hemo WHITE CELL COUNT 05/01/2016 8.50 RED CELL COUNT 05/01/2016 4.38* HEMOGLOBIN 05/01/2016 14.5 HEMATOCRIT 05/01/2016 42.9 MCV 05/01/2016 97.9* MCHC 05/01/2016 33.8 RDW SD 05/01/2016 44.9 PLATELET COUNT 05/01/2016 180 MPV 05/01/2016 8.1* NRBC% 05/01/2016 0.0 NRBC# 05/01/2016 0.00 NEUTROPHIL % 05/01/2016 48.3* LYMPHOCYTE % 05/01/2016 41.1 MONOCYTE % 05/01/2016 6.4 EOS % 05/01/2016 3.2* BASO % 05/01/2016 0.4 IMMATURE GRANULOCYTE% 05/01/2016 0.6 NEUTROPHIL # 05/01/2016 4.12 LYMPHOCYTE # 05/01/2016 3.49 MONOCYTE # 05/01/2016 0.54 EOS # 05/01/2016 0.27 BASO # 05/01/2016 0.03 IMMATURE GRANULOCYTE# 05/01/2016 0.05* Assessment/Plan: 1. Hematology: Khurram Kelly is currently day +249 s/p tBuCy-conditioned unrel ated donor PBSC transplant for primary refractory AML, s/p 6 cycles of azacitidine for post- transplant relapse. Peripheral blood counts WNL with no evidence of disease by peripheral s mear. His most recent marrow studies completed 11/22/15 showed a hypocellular marrow (patchy 15%) with trilineage hematopoiesis and no morphologic and immunologic evidence of acute leuk emia. Karyotype 46,XY[19]. VNTR showed no detectable host cells. Genetrails remained positiv e for IL7R (50%, likely benign germline polymorphism of donor origin). End of post-transpla nt azacytidine marrow 04/19/16 demonstrated a patchy hypocellular marrow (5-50%) with less t kirby 3% blasts without aberrant immunophenotype. KARYOTYPE RESULTS: 46,XY[20] STR entirely donor. Genetrails with IL7R (likely benign germline polymorphism). NRAS is NOT detected. 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 Prednisone was increased back to 20 mg po daily. Skin bx 02/10/16 showed vaculolar inter face mixed dermatitis with eosinophils. DDx included GvHD and drug hypersensitivity reaction . Rash resolved with increased dose prednisone. Mildly elevated ALT, stable. He has tolerate d a taper of steroids to 10 mg po every other day without flare of his GvHD symptoms. Also c ontinues low dose tacrolimus, budesonide. He has no s/s active GvHD at this time. --> continue to taper by 5 mg every other day q2 weeks; decrease to 5 mg daily alternating with 0mg daily --> continue tacrolimus 0.5 mg bid without additional taper until 2 weeks after completion of steroid taper --> continue budesonide BID --> hold off on taper if any signs/symptoms of GVHD 3. Infectious Disease: Afebrile without localizing s/s [...] py. --> continue acyclovir and bactrim --> post transplant vaccines per schedule --> inactivated influenza vaccine today --> he has already received flu vaccine for this year (2015) --> due to CMV reactivation prior to day +100, continue to monitor PCRs q2 weeks through da y +270 --> repeat immune reconstitution panel at day +270 and d/c bactrim if CD4 count > 300 and o ff IST Lab Results Component Value Date CMVQUANTPCR Undetected 04/19/2016 CMVQUANTPCR Undetected 04/12/2016 CMVQUANTPCR Undetected 04/03/2016 CMVQUANTPCR Undetected 03/30/2016 4. Fluid, Electrolyte and Nutrition: Appetite is good, feels he's eating better adequate po fluid intake. No c/o N/V/D. His electrolytes are reviewed and are within acceptable limits. --> continue a well balanced diet --> maintain hydration --> continue po Mg++ supplements as prescribed 5. Cardiovascular: Pretransplant TTE completed 08/10/15 showed a LVEF of 55-60%. 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 --> continue current meds --> anticipate improvement of HTN with tacrolimus taper 6. Psychosocial: Hx of anxiety, previously well controlled with xanax TID. Noted increase i n anxiety or decreased effectiveness of xanax. Changed to clonazepam 0.5 mg po BID with kath kthrough prn however felt xanax worked better for him overall. Changed back to xanax with im provement. Interested in a peer support group. Marked anxiety around bone marrow biopsy res ults. --> continue current meds - prn xanax --> encouraged pt to contact [facility] to schedule appt --> again encouraged pt to engage with [employer] to establish peer support or AYA support gr oup resources available at [facility] 7. Follow up --> RTC in 2 weeks for repeat visit and lab work, sooner if interval issues Yari Garcia MD, MS Power Sewing Machine Operatorscientologist [facility] [address] [place] [address] documented in this enc ounter Plan of [...] Rd | | | | | | [place], [place] | | | | | | [address] | | | | | | [phone] | | | | | | | | +--------+---------+ + + + documented as of this encounter Procedures + +--------+ + + + | Procedure Name | Priori | Date/Time | Associated Diagnosis | Comments | | | ty | | | | + +--------+ + + + | CMV PCR | Routin | 05/01/2016 | S/P allogeneic | Results for this | | QUANTITATION, PLASMA | e | 7:33 AM | bone marrow | procedure are in the | | | | PDT | transplant ([facility]) | results section. | + +--------+ + + + documented in this encounter Results CMV PCR QUANTITATION, PLASMA (05/01/2016 7:33 AM PDT) + + + [...] 2 fold may not reflect true | [facility] | | biological changes and must be [...] | | | characteristics determined by the [facility] | | | [facility]. It has not been cleared or approved by | | | the Food and Drug Administration. FDA approval is not required for | | | clinical use of this test, and therefore validation was done as | | | required under the requirements of the Clinical Laboratory Improvement | | | Act of 1988. The [facility] | | | Diagnostic Center is a fully licensed and/or accredited clinical | | | laboratory under CLIA, CAP, and the [facility]. | | + + + + + + + + | Performing | Address | City/State/Zipcode | Phone Number | | Organization | | | | + + + + + | [facility] | [address] | [place] [address] | | | DIAGNOSTIC | [address] [...] [facility] | [address] | [place] [address] | | | SERVICES, CORE | PARK [...] [facility] | [address] | [place] [address] | | | SERVICES, CORE | PARK [...] | + + + + + | [facility] | [address] | [place] [address] | | | SERVICES, CORE | PARK [...] [facility] | [address] | [place] [address] | | | SERVICES, CORE | PARK [...] | + + + + + | [facility] | [address] | [place] [address] | | | SERVICES, CORE | [address] [...] | | | LABORATORY | | | GUYANESE | | | SERVICES, | | | [...] | + + + + + | [facility] | [address] | [place] [address] | | | INDRA SHARIF | [address] | | | + + + + + documented in this encounter Visit Diagnoses + + | Diagnosis | + + | 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
--- OUTSIDE RECORDS SUMMARY | ~2019-05-17 | XMS | Encounter Summary ---
Demographics + + + | Address | [address] | | | [place] [address] | + + + | Home Phone | | + + + | Preferred Language | Unknown | + + + | Marital Status | | + + + | Religion Affiliation | SPI | + + + [...] Providers + +------+ + | Care [employer] Offbearer Name | Role | Phone | + [...] | | | | | | | [address] | | | | | | | J[place]ier Carrera | | | | | | | [place], | | | | | | | [place] | | | | | | | [address] | | | | | | | Phone: | | | | | | | [phone] | | | | | | | Fax: | | | | | | | [phone] | +--------+--------+ + + + + Encounter Details +--------+ + + + + | Date | Type | Department | Care Team | Description | +--------+ + + + + | 07/15/ | Clinical | [facility] for | | Schedule labs (PICC) | | 2016 | Support | Hematologic | | | | | Staff | [facility] | | | | | | [address] | | | | | | W[place] Calderon Mailcode: | | | | | | [id number] | | | | | | [place], | | | | | | [place] [address] | | | | | | [phone] | | | +--------+ + + + [...] encounter Progress Notes Jyoti Ramachandran RN - 07/15/2015 3:42 PM PSTPt here in Fast Track for lab draw. PICC accessed per protocol. Good blood return noted. Appropriate waste discarded. Labs d rawn and sent. PICC pulse flushed with 20 mL NS. Patient discharged home. Pt discharged from clinic. Left clinic Ambulatory [...] [address] | | | | | | [place], [place] | | | | | | [address] | | | | | | [phone] | | | | | | | | +--------+---------+ + + + documented as of this encounter Procedures + +--------+ + + + | Procedure Name | Priori | Date/Time | Associated Diagnosis | Comments | | | ty | | | | + +--------+ + + + | ANTIBODY SCREEN | Routin | 07/15/2015 | Acute myeloid | Results for this | | | e | 3:22 PM | leukemia (AML), M4 | procedure are in the | | | | PST | ([facility]) | results section. | + +--------+ + + + | TYPE AND SCREEN | Routin | 07/15/2015 | Acute myeloid | Results for this | | | e | 3:22 PM | leukemia (AML), M4 | procedure are in the | | | | PST | ([facility]) | results section. | + +--------+ + + + | ABO & RH TYPE | Routin | 07/15/2015 | Acute myeloid | Results for this | | | e | 3:22 PM | leukemia (AML), M4 | procedure are in the | | | | PST | ([facility]) | results section. | + +--------+ + + + | INF DISEASE MISC | Routin | 07/15/2015 | Acute myeloid | Results for this | | | e | 3:21 PM | leukemia (AML), M4 | procedure are in the | | | | PST | ([facility]) | results section. | + +--------+ + + + | INF DISEASE NATHALIA | Routin | 07/15/2015 | Acute myeloid | Results for this | | | e | 3:21 PM | leukemia (AML), M4 | procedure are in the | | | | PST | ([facility]) | results section. | + +--------+ + + + | INF DISEASE SCREEN | Routin | 07/15/2015 | Acute myeloid | Results for this | | | e | 3:21 PM | leukemia (AML), M4 | procedure are in the | | | | PST | ([facility]) | results section. | + +--------+ + + + | INFECT DISEASE | Routin | 07/15/2015 | Acute myeloid | Results for this | | MARKER PANEL | e | 3:21 PM | leukemia (AML), M4 | procedure are in the | | | | PST | ([facility]) | results section. | + +--------+ + + + | CBC AND AUTO DIFF | Routin | 07/15/2015 | Acute myeloid | Results for this | | | e | 3:21 PM | leukemia (AML), M4 | procedure are in the | | | | PST | ([facility]) | results section. | + +--------+ + + + | LIT - HLA | Routin | 07/15/2015 | Acute myeloid | | | VERIFICATION TYPING | e | 3:21 PM | leukemia (AML), M4 | | | CLASS II | | PST | ([facility]) | | + +--------+ + + + | LIT - HLA | Routin | 07/15/2015 | Acute myeloid | | | VERIFICATION TYPING | e | 3:21 PM | leukemia (AML), M4 | | | CLASS I | | PST | ([facility]) | | + +--------+ + + + | LIT FLOW HLA AB PRA | Routin | 07/15/2015 | Acute myeloid | | | SCREEN I/II | e | 3:21 PM | leukemia (AML), M4 | | | | | PST | ([facility]) | | + +--------+ + + + | CMV PCR | Routin | 07/15/2015 | Acute myeloid | Results for this | | QUANTITATION, PLASMA | e | 3:21 PM | leukemia (AML), M4 | procedure are in the | | | | PST | ([facility]) | results section. | + +--------+ + + + | INR | Routin | 07/15/2015 | Acute myeloid | Results for this | | | e | 3:21 PM | leukemia (AML), M4 | procedure are in the | | | | PST | ([facility]) | results section. | + +--------+ + + + | CBC, WITH | Routin | 07/15/2015 | Acute myeloid | Results for this | | DIFFERENTIAL | e | 3:21 PM | leukemia (AML), M4 | procedure are in the | | | | PST | ([facility]) | results section. | + +--------+ + + + | VARICELLA ZOSTER | Routin | 07/15/2015 | Acute myeloid | Results for this | | IGG, SERUM | e | 3:21 PM | leukemia (AML), M4 | procedure are in the | | | | PST | ([facility]) | results section. | + +--------+ + + + | HSV ANTIBODY, SERUM | Routin | 07/15/2015 | Acute myeloid | Results for this | | | e | 3:21 PM | leukemia (AML), M4 | procedure are in the | | | | PST | ([facility]) | results section. | + +--------+ + + + | TOMMY VOSS VIRUS | Routin | 07/15/2015 | Acute myeloid | Results for this | | PANEL, SERUM | e | 3:21 PM | leukemia (AML), M4 | procedure are in the | | | | PST | ([facility]) | results section. | + +--------+ + + + | COMPLETE METABOLIC | Routin | 07/15/2015 | Acute myeloid | Results for this | | SET | e | 3:21 PM | leukemia (AML), M4 | procedure are in the | | (NA,K,CL,CO2,BUN,CRE | | PST | (HCC) | results section. | | AT,GLUC,CA,AST,ALT,B | | | | | | YUN TOTAL,ALK | | | | | | PHOS,ALB,PROT TOTAL) | | | | | + +--------+ + + + | APTT (ACT. PART. | Routin | 07/15/2015 | Acute myeloid | Results for this | | THROMBO TIME) | e | 3:21 PM | leukemia (AML), M4 | procedure are in the | | | | PST | ([facility]) | results section. | + +--------+ + + + | TOXOPLASMA IGG AB, | Routin | 07/15/2015 | Acute myeloid | Results for this | | SERUM | e | 3:21 PM | leukemia (AML), M4 | procedure are in the | | | | PST | ([facility]) | results section. | + +--------+ + + + | PHOSPHORUS, PLASMA | Routin | 07/15/2015 | Acute myeloid | Results for this | | | e | 3:21 PM | leukemia (AML), M4 | procedure are in the | | | | PST | ([facility]) | results section. | + +--------+ + + + | HEPATITIS A AB IGM, | Routin | 07/15/2015 | Acute myeloid | Results for this | | SERUM | e | 3:21 PM | leukemia (AML), M4 | procedure are in the | | | | PST | ([facility]) | results section. | + +--------+ + + + | HEPATITIS B SURFACE | Routin | 07/15/2015 | Acute myeloid | Results for this | | AB QUAL, SERUM | e | 3:21 PM | leukemia (AML), M4 | procedure are in the | | | | PST | ([facility]) | results section. | + +--------+ + + + | HEPATITIS A AB | Routin | 07/15/2015 | Acute myeloid | Results for this | | SCREEN, SERUM | e | 3:21 PM | leukemia (AML), M4 | procedure are in the | | | | PST | ([facility]) | results section. | + +--------+ + + + | BILIRUBIN DIRECT | Routin | 07/15/2015 | Acute myeloid | Results for this | | | e | 3:21 PM | leukemia (AML), M4 | procedure are in the | | | | PST | ([facility]) | results section. | + +--------+ + + + | URIC ACID, PLASMA | Routin | 07/15/2015 | Acute myeloid | Results for this | | | e | 3:21 PM | leukemia (AML), M4 | procedure are in the | | | | PST | ([facility]) | results section. | + +--------+ + + + | MAGNESIUM, PLASMA | Routin | 07/15/2015 | Acute myeloid | Results for this | | | e | 3:21 PM | leukemia (AML), M4 | procedure are in the | | | | PST | ([facility]) | results section. | + +--------+ + + + | LDH TOTAL, PLASMA | Routin | 07/15/2015 | Acute myeloid | Results for this | | | e | 3:21 PM | leukemia (AML), M4 | procedure are in the | | | | PST | ([facility]) | results section. | + +--------+ + + + | CHOLESTEROL TOTAL, | Routin | 07/15/2015 | Acute myeloid | Results for this | | PLASMA | e | 3:21 PM | leukemia (AML), M4 | procedure are in the | | | | PST | ([facility]) | results section. | + +--------+ + + + documented in this encounter Results ANTIBODY SCREEN (07/15/2015 3:22 PM PST) + + + + + [...] [facility] | [address] | [place] [address] | | | SERVICES, | [address] | | | | TRANSFUSION MEDICINE | | | | + + + + + ABO & RH TYPE (07/15/2015 3:22 PM PST) + + + + + [...] | + + + + + | [facility] | [address] | [place] [address] | | | SERVICES, | [address] | | | | TRANSFUSION MEDICINE | | | | + + + + + HEPATITIS A AB IGM, SERUM (07/15/2015 3:21 PM PST) + + + + + + | Component | Value | Ref Range | Performed | Pathologist | | | | | At | Signature | + + + + + + | HEPATITIS A | NegativeComment: | Negative | [facility] | | | AB, IGM | Negative | | [facility] - | | | [...] + | [facility] - | [address] | [place] [address] | | | [place] | | | | + + + + + INF DISEASE MISC (07/15/2015 3:21 PM PST) + + + + + + | Component | Value | Ref Range | Performed | Pathologist | | | | | At | Signature | + + + + + + | RPR (STS) | Negative | Negative | [facility] | | | | | | CELL | | | | | | PROCESSING | | | | | | LAB | | + + + + + + | CMV AB | Positive (A) | Negative | [facility] | | | | | | CELL | | | | | | PROCESSING | | | | | | LAB | | + + + + + + + + | Specimen | + + | Blood - Blood | | (substance) | + + + + + | Narrative | Performed At | + + + | Testing performed at [facility] | [facility] | | Laboratory [address] [place] [address] | CELL PROCESSING | | | LAB | + + + + + + + + | Performing | Address | City/State/Zipcode | Phone Number | | Organization | | | | + + + + + | [facility] | [address] | [place], [place] | | | PROCESSING LAB | [address] | [address] | | + + + + + INF DISEASE NATHALIA (07/15/2015 3:21 PM PST) + + + + + + | Component | Value | Ref Range | Performed | Pathologist | | | | | At | Signature | + + + + + + | HCV NATHALIA | Negative | Negative | [facility] | | | | | | CELL | | | | | | PROCESSING | | | | | | LAB | | + + + + + + | HIV-1 NATHALIA | Negative | Negative | [facility] | | | | | | CELL | | | | | | PROCESSING | | | | | | LAB | | + + + + + + | WNV NATHALIA | Negative | Negative | [facility] | | | | | | CELL | | | | | | PROCESSING | | | | | | LAB | | + + + + + + + + | Specimen | + + | Blood - Blood | | (substance) | + + + + + + + | Performing | Address | City/State/Zipcode | Phone Number | | Organization | | | | + + + + + | [facility] | [address] | [place], [place] | | | PROCESSING LAB | [address] | [address] | | + + + + + INF DISEASE SCREEN (07/15/2015 3:21 PM PST) + + + + + + | Component | Value | Ref Range | Performed | Pathologist | | | | | At | Signature | + + + + + + | HEP BS AG | Negative | Negative | [facility] | | | | | | CELL | | | | | | PROCESSING | | | | | | LAB | | + + + + + + | HEP B CORE | Negative | Negative | [facility] | | | AB | | | CELL | | | | | | PROCESSING | | | | | | LAB | | + + + + + + | HEP C AB | Negative | Negative | [facility] | | | | | | CELL | | | | | | PROCESSING | | | | | | LAB | | + + + + + + | HTLV I AB | Negative | Negative | [facility] | | | | | | CELL | | | | | | PROCESSING | | | | | | LAB | | + + + + + + | HTLV II AB | Negative | Negative | [facility] | | | | | | CELL | | | | | | PROCESSING | | | | | | LAB | | + + + + + + | HIV 1/2 AB | Negative | Negative | [facility] | | | | | | CELL | | | | | | PROCESSING | | | | | | LAB | | + + + + + + | T. CRUZI AB | Negative | Negative | [facility] | | | | | | CELL | | | | | | PROCESSING | | | | | | LAB | | + + + + + + + + | Specimen | + + | Blood - Blood | | (substance) | + + + + + | Narrative | Performed At | + + + | Testing performed at [facility] | [facility] | | Laboratory [address] [place] [address] | CELL PROCESSING | | | LAB | + + + + + + + + | Performing | Address | City/State/Zipcode | Phone Number | | Organization | | | | + + + + + | [facility] | [address] | [place], [place] | | | PROCESSING LAB | [address] | [address] | | + + + + + CBC AND AUTO DIFF (07/15/2015 3:21 PM PST) + + + + + + | Component | Value | Ref Range | Performed | Pathologist | | | | | At | Signature | + + + + + + | WHITE CELL | 1.35 (L) | 4.40 - 11.00 | [facility] | | | COUNT | | K/cu mm | LABORATORY | | | | | | SERVICES, | | | | | | CORE | | + + + + + + | RED CELL | 2.74 (L) | 4.50 - 6.00 | [facility] | | | COUNT | | M/cu mm | LABORATORY | | | | | | SERVICES, | | | | | | CORE | | + + + + + + | HEMOGLOBIN | 7.9 (L) | 13.5 - 17.5 | [facility] [...] + + + + | MCV | 80.7 | 80.0 - 96.0 fL | [facility] | | | | | | LABORATORY | | | | | | SERVICES, | | | | | | CORE | | + + + + + + | MCHC | 35.7 | 33.0 - 35.5 | [facility] | | | | | g/dL | LABORATORY | | | | | | SERVICES, | | | | | | CORE | | + + + + + + | RDW SD | 32.8 (L) | 35.1 - 46.3 fL | [facility] | | | | | | LABORATORY | | | | | | SERVICES, | | | | | | CORE | | + + + + + + | PLATELET | 14 (L) | 150 - 400 K/cu | [facility] | | | COUNT | | mm | LABORATORY | | | | | | SERVICES, | | | | | | CORE | | + + + + + + | MPV | 12.1 | 9.7 - 12.3 fL | [facility] [...] + + + + | NEUTROPHIL | 2.9 (L) | 50.0 - 70.0 % | [facility] | | | % | | | LABORATORY | | | | | | SERVICES, | | | | | | CORE | | + + + + + + | LYMPHOCYTE | 17.8 (L) | 18.0 - 42.0 % | [facility] | | | % | | | LABORATORY | | | | | | SERVICES, | | | | | | CORE | | + + + + + + | MONOCYTE % | 79.3 (H) | 3.5 - 9.0 % | [...] + + + + | NEUTROPHIL | 0.04 (L) | 1.80 - 7.70 | [facility] | | | # | | K/cu mm | LABORATORY | | | | | | SERVICES, | | | | | | CORE | | + + + + + + | LYMPHOCYTE | 0.24 (L) | 1.00 - 4.80 | [facility] | | | # | | K/cu mm | LABORATORY | | | | | | SERVICES, | | | | | | CORE | | + + + + + + | MONOCYTE # | 1.07 (H) | 0.10 - 0.90 | [facility] [...] | included in the neutrophil count. | INDRA SHARIF | + + + + + + + + | Performing | Address | City/State/Zipcode | Phone Number | | Organization | | | | + + + + + | [facility] | [address] | [place] [address] | | | INDRA SHARIF | [address] | | | + + + + + LIT - HLA VERIFICATION TYPING CLASS II (07/15/2015 3:21 PM PST) + + | Specimen | + + | Blood - Blood | | (substance) | + + + + + + + | Performing | Address | City/State/Zipcode | Phone Number | | Organization | | | | + + + + + | [facility] - | [address], | [place] [address] | | | IMMUNOGENETICS/TRANS | [address] [...] + + | [facility] - | [address] | [place] [address] | | | IMMUNOGENETICS/TRANS | [address] [...] + | [facility] - | [address] | [place] [address] | | | IMMUNOGENETICS/TRANS | [address] [...] 2 fold may not reflect true | [facility] | | biological changes and must be [...] | | | characteristics determined by the [facility] | | | [facility]. It has not been cleared or approved by | | | the Food and Drug Administration. FDA approval is not required for | | | clinical use of this test, and therefore validation was done as | | | required under the requirements of the Clinical Laboratory Improvement | | | Act of 1988. The [facility] Molecular | | | Diagnostic Center is a fully licensed and/or accredited clinical | | | laboratory under CLIA, [facility], and the [facility]. | | + + + + + + + + | Performing | Address | City/State/Zipcode | Phone Number | | Organization | | | | + + + + + | [facility] | [address] | [place] [address] | | | DIAGNOSTIC | [address] | | | | LABORATORIES | | | | + + + + + TOMMY OVSS VIRUS PANEL, SERUM (07/15/2015 3:21 PM PST) [...] at | | | | | | [email or web address] | | | | | | x. [...] at | | | | | | [email or web address] | | | | | | x. [...] at | | | | | | [email or web address] | | | | | | x. [...] at | | | | | | [email or web address] | | | | | | x.Performed by [facility] | | | | | | [facility] | | | | | | [place], [place] [address] | | | | | | [phone]ab. | | | | | | [facility], [address], | | | | | [...] [facility] | [address] | [place], [place] | | | UN[facility] | | [address] | | + + + + + [...] + | [facility] - | [address] | [place] [address] | | | [place] | | | | + + + [...] + | [facility] - | [address] | [place] [address] | | | [place] | | | [...] + | [facility] - | [address] | [place] [address] | | | [place] | | | [...] + | [facility] - | [address] | [place] [address] | | | [place] | | | | + + + [...] | | | | | | Laboratories,[address] [facility] | | | | | | [place] [address] | | | | | | [phone]. | | | | | | [place] [place], | | | | | | , [...] [facility] | [address] | [place], [place] | | | UN[facility] | | [address] | | + + + + + [...] + + | [facility] | [address] | [place] [address] | | | SERVICES, CORE | [address] [...] [facility] | [address] | [place] [address] | | | SERVICES, CORE | [address]ARK [...] | + + + + + | [facility] | [address] | [place] [address] | | | SERVICES, CORE | [address] [...] [facility] | [address] | [place] [address] | | | SERVICES, CORE | PARK [...] | + + + + + | [facility] | [address] | [place] [address] | | | SERVICES, CORE | [address] | | | + + + + [...] [facility] | [address] | [place] [address] | | | SERVICES, CORE | PARK [...] [facility] | [address] | [place] [address] | | | SERVICES, INDRA | PARK [...] LABORATORY | | | | | | KOLE, | | | | | | CORE | | + +-------+ + + + + + | Specimen | + + | Blood - Blood | | (substance) | + + + + + + + | Performing | Address | City/State/Zipcode | Phone Number | | Organization | | | | + + + + + | [facility] | [address] | [place] [address] | | | SERVICES, CORE | [address] [...] | | | LABORATORY | | | LAO | | | SERVICES, | | | [...] [facility] | [address] | [place] [address] | | | SERVICES, CORE | [address] | | | + + + + + documented in this encounter Visit Diagnoses + + | Diagnosis | + + | Acute myeloid leukemia (AML), M4 (HCC) | + + documented in this encounter"
--- OUTSIDE RECORDS SUMMARY | ~2019-05-17 | XMS | Encounter Summary ---
Demographics + + + | Address | [address] | | | [place] [address] | + + + | Home Phone [...] Team Providers + +------+ + | Care Fairing Man Name | Role | Phone | + +------+ + | Zayda Hinton | PCP | | + +------+ + Encounter Details +--------+ + + + + | Date | Type | Department | Care Team | Description | +--------+ + + + + | 04/09/ | Procedure | 6A Intra [facility] | | | | 2018 | Pass | [facility] | | | | | | Admitting Desk | | | | | | Located on the 9 | | | | | | floor [address] | | | | | [address] | | | | | | [place], [place] | | | | | | [address] | | | +--------+ + + + [...] 2019 | Visit | Malignancy | [address] | | | | | | [address] | | | | | | [place], [place] | | | | | | [address] | | | | | | [phone] | | | | | | | | +--------+---------+ + + + documented as of this encounter Visit Diagnoses Not on filedocumented in this encounter"
--- OUTSIDE RECORDS SUMMARY | ~2019-05-17 | XMS | Encounter Summary ---
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 | Role | Phone | + +------+ + | No Pcp Per Patient | PCP | Unavailable | + +------+ + Encounter Details +--------+------+ + + + | Date | Type | Department | Care Team | Description | +--------+------+ + + + | 11/02/ | Lab | Laboratory, | | S/P allogeneic bone | | 2016 | | Specimen Collection | | marrow transplant | | | | at [facility] 3rd Floor | | ([facility]) | | | | [address] | | | | | | [place], | | | | | | [place] [address] | | | | | | [phone] | | | +--------+------+ + + + [...] 2019 | Visit | Malignancy | [address] [facility] | | | | | | [address] | | | | | | [place], [place] | | | | | | [address] | | | | | | [phone] | | | | | | | | +--------+---------+ + + + documented as of this encounter Procedures + +--------+ + + + | Procedure Name | Priori | Date/Time | Associated Diagnosis | Comments | | | ty | | | | + +--------+ + + + | CBC AND AUTO DIFF | Urgent | 11/02/2016 | S/P allogeneic | Results for this | | | | 9:56 AM | bone marrow | procedure are in the | | | | PDT | transplant ([facility]) | results section. | + +--------+ + + + | CBC, WITH | Urgent | 11/02/2016 | S/P allogeneic | Results for this | | DIFFERENTIAL | | 9:56 AM | bone marrow | procedure are in the | | | | PDT | transplant ([facility]) | results section. | + +--------+ + + + | COMPLETE METABOLIC | Routin | 11/02/2016 | S/P allogeneic | Results for this | | SET | e | 9:56 AM | bone marrow | procedure are in the | | (NA,K,CL,CO2,BUN,CRE | | PDT | transplant ([facility]) | results section. | | AT,GLUC,CA,AST,ALT,B | | | | | | YUN TOTAL,ALK | | | | | | PHOS,ALB,PROT TOTAL) | | | | | + +--------+ + + + | TACROLIMUS, WHOLE | Routin | 11/02/2016 | S/P allogeneic | Results for this | | BLOOD | e | 9:56 AM | bone marrow | procedure are in the | | | | PDT | transplant ([facility]) | results section. | + +--------+ + + + | PHOSPHORUS, PLASMA | Routin | 11/02/2016 | S/P allogeneic | Results for this | | | e | 9:56 AM | bone marrow | procedure are in the | | | | PDT | transplant ([facility]) | results section. | + +--------+ + + + | BILIRUBIN DIRECT | Routin | 11/02/2016 | S/P allogeneic | Results for this | | | e | 9:56 AM | bone marrow | procedure are in the | | | | PDT | transplant ([facility]) | results section. | + +--------+ + + + | URIC ACID, PLASMA | Routin | 11/02/2016 | S/P allogeneic | Results for this | | | e | 9:56 AM | bone marrow | procedure are in the | | | | PDT | transplant ([facility]) | results section. | + +--------+ + + + | MAGNESIUM, PLASMA | Routin | 11/02/2016 | S/P allogeneic | Results for this | | | e | 9:56 AM | bone marrow | procedure are in the | | | | PDT | transplant ([facility]) | results section. | + +--------+ + + + | LDH TOTAL, PLASMA | Routin | 11/02/2016 | S/P allogeneic | Results for this | | | e | 9:56 AM | bone marrow | procedure are in the | | | | PDT | transplant ([facility]) | results section. | + +--------+ + + + documented in this encounter Results CBC AND AUTO DIFF (11/02/2016 9:56 AM PDT) + + + + + + | Component | Value | Ref Range | Performed | Pathologist | | | | | At | Signature | + + + + + + | WHITE CELL | 8.68 | 3.50 - 10.80 | [facility] | | | COUNT | | K/cu mm | LABORATORY | | | | | | SERVICES, | | | | | | CORE | | + + + + + + | RED CELL | 4.26 (L) | 4.50 - 6.00 | [facility] | | | COUNT | | M/cu mm | LABORATORY | | | | | | SERVICES, | | | | | | CORE | | + + + + + + | HEMOGLOBIN | 13.5 | 13.5 - 17.5 | [facility] | [...] + + + + | MCV | 96.0 | 80.0 - 96.0 fL | [facility] | | | | | | LABORATORY | | | | | | SERVICES, | | | | | | CORE | | + + + + + + | MCHC | 33.0 | 33.0 - 35.5 | [facility] | | | | | g/dL | LABORATORY | | | | | | SERVICES, | | | | | | CORE | | + + + + + + | RDW SD | 55.6 (H) | 35.1 - 46.3 fL | [facility] | | | | | | LABORATORY | | | | | | SERVICES, | | | | | | CORE | | + + + + + + | PLATELET | 242 | 150 - 400 K/cu | [facility] [...] + + + + | NEUTROPHIL | 53.7 | 50.0 - 70.0 % | [facility] | | | % | | | LABORATORY | | | | | | SERVICES, | | | | | | CORE | | + + + + + + | LYMPHOCYTE | 36.3 | 18.0 - 42.0 % | [facility] | | | % | | | LABORATORY | | | | | | SERVICES, | | | | | | CORE | | + + + + + + | MONOCYTE % | 6.3 | 3.5 - 9.0 % | [facility] | | | | | | LABORATORY | | | | | | SERVICES, | | | | | | CORE | | + + + + + + | EOS % | 2.5 | 1.0 - 3.0 % | [facility] | | | | | | LABORATORY | | | | | | SERVICES, | | | | | | CORE | | + + + + + + | BASO % | 0.3 | 0.0 - 2.0 % | [facility] | | | | | | LABORATORY | | | | | | SERVICES, | | | | | | CORE | | + + + + + + | IG% | 0.9 (H)Comment: Immature | 0.0 - 0.6 % [...] + + + + | NEUTROPHIL | 4.65 | 1.80 - 7.70 | [facility] | | | # | | K/cu mm | LABORATORY | | | | | | SERVICES, | | | | | | CORE | | + + + + + + | LYMPHOCYTE | 3.15 | 1.00 - 4.80 | [facility] | [...] + + + | EOS # | 0.22 | 0.00 - 0.50 | [facility] | [...] + + + + | IG# | 0.08 (H) | 0.00 - 0.03 | [facility] [...] [facility] | [address] | [place] [address] | | | SERVICES, CORE | [address] | | | + + + + + TACROLIMUS, WHOLE BLOOD (11/02/2016 9:56 AM PDT) [...] | Test performed by immunoassay using [employer] i2000. . | [facility] | | Samples [...] [facility] | [address] | [place] [address] | | | SERVICES, SPECIAL | PARK [...] | + + + + + | [facility] | [address] | [place] [address] | | | SERVICES, CORE | [address] [...] [facility] | [address] | [place] [address] | | | SERVICES, CORE | PARK [...] | + + + + + | [facility] | [address] | [place] [address] | | | SERVICES, CORE | [address] [...] [facility] | [address] | [place] [address] | | | INDRA SHARIF | [address] [...] [facility] | [address] | [place] [address] | | | SERVICES, CORE | PARK [...] | | | LABORATORY | | | [facility] [facility] [employer] [facility] | | | SERVICES, | | [...] + + + + + | [facility] | [address] | [place] [address] | | | SERVICES, CORE | [address] | | | + + + + + documented in this encounter Visit Diagnoses + + | Diagnosis | + + | 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
--- OUTSIDE RECORDS SUMMARY | ~2019-05-17 | XMS | Encounter Summary ---
Demographics + + + | Address | [address] | | | [place] [address] | + + + | Home Phone [...] Team Providers + +------+ + | Care Artists' Model Name | Role | Phone | + +------+ + | Zayda Hinton | PCP | | + +------+ + Encounter Details +--------+---------+ + + + | Date | Type | Department | Care Team | Description | +--------+---------+ + + + | 12/09/ | Office | Preoperative | Tonya Nation | Preop examination | | 2019 | Visit | Medicine Clinic at | MD Mya [address] | (Primary Dx); | | | | [facility] | [address] | Drug-induced | | | | [address] | [place] [address] | hyperglycemia ; | | | | Mail Code: 8PM | [phone] | Pre-op evaluation | | | | [facility] | | | | | | and Healing, | | | | | | Building [address] | | | | | | [place], [place] | | | | | | [address] | | | | | | [phone] | | | +--------+---------+ + + + Anesthesia Record + + + + + | Procedure Name | Responsible | Anesthesia Start | Anesthesia Stop Time | | | Anesthesiologist | Time | | + + + + + | PREANESTHETIC | | | | | EVALUATION | | | | + + + + + + + | No events on file. | + + +------+ | Meds | +------+ + + + No medications | on file. | + + + + + | No agents on file. | + + + + | No blood administrations on file. | + + + + | No LDAs on file. | + + documented in this encounter Social History + +-------+ +--------+ + | [...] + | Blood Pressure | 121/78 | 12/09/2018 9:17 AM | | | | | PDT | | + + + + + | Pulse | 60 | 12/09/2018 9:17 AM | | | | | PDT | | + + + + + | Temperature | 36.4 C (97.5 F) | 12/09/2018 9:17 AM | | | | | PDT | | + + + + + | Respiratory Rate | 15 | 12/09/2018 9:17 AM | | | | | PDT | | + + + + + | Oxygen Saturation | 99% | 12/09/2018 9:17 AM | | | | | PDT | | + + + + + | Inhaled Oxygen | - | - | | | Concentration | | | | + + + + + | Weight | 73.9 kg (163 lb) | 12/09/2018 9:17 AM | | | | | PDT | | + + + + + | Height | 186.7 cm (6' 1.5") | 12/09/2018 9:17 AM | neck: 40 cm | | | | PDT | | + + + + + | Body Mass Index | 21.21 | 12/09/2018 9:17 AM | | | | | PDT | | + + + + + documented in this encounter Patient Instructions Patient Instructions Tonya Nation MD - 12/09/2018 9:00 AM PDTPREOPERATIVE INSTRUCTI ONS Empty stomach before surgery On the day BEFORE your surgery, eat and drink like you normally do NOTHING to eat or drink after midnight the night before surgery. This includes water, coffee, candy, mints, gum. If you have been instructed to take medications the morning of surgery, you may take a s mall sip of water Medications Instructions Unless otherwise directed by your surgeon, do not take any Aspirin, vitamin E, Fish Oil, non-steroidal anti-inflammatory (NSAIDs i.e. Advil, Aleve, Ibuprofen) or herbal supplement s 7 days prior to your surgery. These drugs may interfere with normal blood clotting and ma y cause excessive bleeding and bruising during or after the surgery. On the evening before your surgery, take your usual evening medications On the morning of surgery TAKE the following medications with a sip of water: Acyclovir Prednisone 5 mg Xanax as needed On the morning of surgery DO NOT TAKE any r other medications. If you are taking Coumadin (warfarin), Plavix or any other blood thinners please let you r surgical team know as medication changes may be necessary. If you need a pain medication for general purposes, use Tylenol as directed. OK to take it even on the morning of surgery, if needed. If you are in doubt about any medications that you are taking, please contact our office at the phone number listed above. Special Reminders for Spine Surgery Patients and Orthopedic Patients Having Joint Replaceme nt Surgery Nasal swab to screen for staph bacteria. If the swab obtained during your visit shows e vidence of staph bacteria, you will be contacted by us with additional instructions on how t o prepare for surgery. If the test is negative, then no call! CHG wipe packet and instructions on proper skin cleaning Please be sure to follow the [facility] instructions regarding proper skin preparation before surgery. Other Important Guidelines ? Do not shave the surgical area Do not smoke, drink alcohol or use recreational drugs for 24 hours before your surgery Watch for any change in your health condition. Let your surgeon know right away if you do not feel well. ? Do not wear makeup, perfume, lotions, deodorant, powder or hairspray. Do not wear any jewelry to the hospital. Wear loose, comfortable clothing. Leave all your valuables at home. Allow enough travel time so you re not late for your check in for surgery. If you were not given special soap or wipes, take a bath or shower and remember to shamp oo your hair using your usual hair product before your arrival at the hospital. Please remember to brush your teeth the night before and the morning of your procedure. Preventing post op complications while you are in the hospital Use an incentive spirometer or peep breathe to keep your lungs working properly an d to help prevent respiratory complications. It helps you take long, deep breaths. Use it at least once every hour while you are awake. Leg and feet exercises will maintain good circulation and help prevent blood clots in yo ur legs. Sometimes your doctor will order sequential air compression stockings. Compressed air helps the circulation in your legs. Walking and moving will help stimulate normal circulation and deep breathing. After you r surgery, your nurse may ask you to sit, stand or walk. Surgery check-in location: Admitting - [facility], ninth floor [facility] Surgery Check in Time: The Preoperative Medicine Clinic is not in the position to give you accurate information regarding surgical check in time. We refer you back to your surgical office regarding this important information. Going Home Your surgical team will decide when you are medically ready to go home. If you are released to go home on the same day as your procedure/surgery please note the following: You will not be able to drive. You will be required to have a competent person drive you or accompany you by taxi or pu blic transportation on the day of discharge. It is also recommended that you have a competent person assist you and look after you on the first night after you have undergone regional blocks (72 hours for patients going home with regional block pump), deep sedation, and/or general anesthesia. If you stay in the hospital after surgery, please arrange for your ride to come for you around 9AM on the day your doctor says you can go home. If you have questions or concerns after you go home, call your doctor s office. If it is after office hours, call the [facility] movie shot camera operator at [phone] and ask them to page him or h er. documented in this encounter Progress Notes Ni Chu MA - 12/09/2018 9:00 AM PDTVenipuncture performed in clinic, blood sample obtained from Right antecubital site Two patient identifiers performed. Nasal swab specimen obtained from both the left and right nares per nasal swab collection instructions. Swab vickey juan a in culture tube; tube labeled and sent to the lab. Teresita, Tonya Roque MD - 12/09/2018 9:00 AM PDT PREOPERATIVE CONSULT NOTE Author: Tonya Nation MD Referring Physician: Dr. Lobo Jeffers Primary Care Provider: JULIANA Nova Reason for Consult: Preoperative evaluation and risk assessment Proposed Procedure/Date: 12/19/2018 :: RIGHT TOTAL HIP ARTHROPLASTY Proposed Procedure Location: [facility] HISTORY OF PRESENT ILLNESS: Khurram Kelly is a 28 y.o. male here for preoperat mickey evaluation of medical problems in anticipation of the above procedure. Pt has dx of rig ht hip pain secondary to AVN related to treatment for AML and bone marrow transplant. He has a hip arthoplasty of his left hip already. Symptoms related to the diagnosis: pain, decrea sed ability to ambulate. Not taking anything for pain except occasional aspirin. 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 Followed agustín campos by [facility] malignancy. No evidence of disease. On Acyclovir for prophylaxis. Hx of GVHD--skin, occular, and GI manifestations, has been on Prednisone and currently o n taper 5mg for the last week and half. Plan is to stay on 5 mg per day until his next appoi ntment on January 21. Anxiety--occasional Xanax but only every few weeks Perioperative cardiac risks: CAD no CHF no CVA no CKD with creatinine >2 no DM treated with insulin No Functional Capacity: Low (1-4 mets): He is on his feet at work, walks as past of his job. occasionally gets some chest discomfort, unrelated to exertion, activity or food. Goes away on its own after a few minutes. Prior complications of anesthesia: none ROS: HPI: Prior Anesthetic Problems: No Pulmonary: no shortness of breath no cough no stridor no wheezing no Recent Respiratory Infectio n Pt. Has no asthma no COPD No dx of sleep apnea Cardiovascular: Hx of HTN after stem cell transplant, but off for several years. Functional Capacity: Mode rate - cyanosis, palpitations and syncope no chest pain no CHF no hypertension no CAD Sx no valvular problems/murmurs no arrhythmia no Cardiac assist devices no pacemaker/ICD GI/Hepatic: no GI Bleed GERD Control: well controlled no liver disease no hepatitis Renal: no renal failure no electrolyte abnormalities no dialysis Endo: Currently on 5mg Prednsione per day for GVHD. no Diabetes: no Endocrine Other Hx Corticos teroid Use: current Neuro/Psych: Occasional headaches. Anxiety well controlled with prn Xanex; uses about once per week or 2 weeks. No Head Condi tions No Spine Conditions No Neuromuscular Conditions Psych Disorder anxiety pain Current pain score: 7 Chronic pain related to scheduled surgery Musculoskeletal: Avascular necrosis of bilateral hips no arthritis No Muscular Disorders Heme/Onc: S/p BMP for AML. Has GVHD. On Prednisone. Pt. has: no active bleeding no bleeding disorde r No clotting disorders No hemoglobin disorders malignancy Leukemia Infectious Disease: no MRSA no VRE Skin: Hx of GVHD skin manifestations but none for 2 years. no open wounds no skin conditions AutoImmune Disorders: No autoimmune disorders Current medications reviewed / updated Current Outpatient Medications Medication Sig acyclovir 800 mg oral tablet Take 1 tablet by mouth two times daily. ALPRAZolam 0.5 mg oral tablet Take 1 tablet by mouth three times daily as needed. Indic ations: anxious ergocalciferol 50,000 unit oral capsule Take 1 capsule by mouth every seven days for 8 doses. predniSONE 1 mg oral tablet Take 9 mg by mouth once daily. Combine with 5 mg tabs Indic ations: GvHD (Patient taking differently: 5 mg. Take 9 mg by mouth once daily. 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 Parotiditis Pericarditis Renal insufficiency 07/02/2015 Past surgery reviewed / updated Past Surgical History Procedure Laterality Date Appendectomy Closed arm reduction Left 2006 in basketball game Family history reviewed / updated Family History Problem Relation Cancer Maternal Grandmother Heart Disease Maternal Grandfather Cancer Paternal Grandmother Heart Disease Paternal Grandfather Social history reviewed / updated Social History Tobacco Use Smoking status: Former Smoker Packs/day: 1.00 Years: 7.00 Pack years: 7.00 Last attempt to quit: 05/20/2015 Years since quittin.5 Smokeless tobacco: Former User Tobacco comment: used 1 year Substance Use Topics Alcohol use: Yes Alcohol/week: 1.8 oz Types: 3 Standard drinks or equivalent per week Drug use: Yes Comment: snorted cocaine in past, ecstasy, biajkcwyu-mpmfnp-luo eaten PHYSICAL EXAM: Last Vitals: BP 121/78 | Pulse 60 | Temp 36.4 C (97.5 F) (Oral) | Resp 15 | Ht 1.86 7 m (6' 1.5") Comment: neck: 40 cm | Wt 73.9 kg (163 lb) | SpO2 99% | BMI 21.21 kg/m | BSA 1.96 m Body mass index is 21.21 kg/m. General: Appearance: Healthy, Age appropriate and No distress LOC: Alert HEENT: Normocephalic/Atraumatic, Normal sclerae/conjunctivae and PERRL Airway: Dentition: dentition is normal Dentition Comments: Hx of root canals Mallampati: 1 Mouth Op ening: > 3 cm TM Distance:> 6 cm Elias: No C-Spine ROM: Normal Neck Anatomy: Normal Jaw Protrusion: Normal (lower incisors go above upper incisors) Pulmonary: Respiratory: pulmonary exam normal Breath Sounds: breath sounds normal Cardiovascular: Rhythm: Regular Rate: Normal Cardiovascular comments: No M/G/R; no pedal edema Abdomen: General: Normal Body Habitus: normal Musculoskeletal: Musculoskeletal Comments: Hip pain. Neuro/Psych: Affect: Normal Cognitive Status: Normal Speech: Normal speech Strength: Normal Muscle Tone: Normal Movement: Normal Gait Station: Normal Comments: No ob vious neurologic deficits noted Skin: Color: skin color normal Texture: Normal Turgor: turgor normal Temperature: Warm Other Implanted Devices: Implanted devices: None LABS & DATA REVIEWED/ORDERED Lab Results Component Value Date WBC 7.20 11/18/2018 HB 13.2 11/18/2018 HCT 40.9 11/18/2018 PLT 261 11/18/2018 MCV 94.0 11/18/2018 RDW 44.4 11/18/2018 Lab Results Component Value Date NA 143 11/18/2018 K 4.2 11/18/2018 CL 108 11/18/2018 BICARB 30 11/18/2018 BUN 12 11/18/2018 CR 0.90 11/18/2018 GLU 98 11/18/2018 CA 9.3 11/18/2018 AST 23 11/18/2018 ALT 29 11/18/2018 AP 63 11/18/2018 TBILI 0.4 11/18/2018 TP 7.5 11/18/2018 ALB 4.0 11/18/2018 Lab Results Component Value Date ABO A 12/09/2018 RH Positive 12/09/2018 Lab Results Component Value Date A1C 5.9 (H) 10/21/2018 EKG: Personally reviewed. NSR HR 63. repolarization abnormality, but otherwise normal. Outside records reviewed from [facility] and "media" tab. Findings pertinent to this pr eoperative visit are as follows: Echo 2014 Interpretation: Left Atrium: Left atrial size is normal. Left ventricle:Left ventricular size is normal with normal wall thickness and motion, and normal left ventricular systolic function.The estimated ejection fraction is 60-65 %.Left ventricular diastolic function is normal. Aortic root: Aortic root is normal. Right Atrium:Right atrial sizes normal. Right ventricle:Right ventricular size is normal with normal wall thickness and normal right ventricular systolic function. Pericardium:Pericardium is normal. Pulmonary artery:Pulmonary artery is normal. normal right-sided pressure. Aortic valve:Aortic valve is trileaflet and opens normally. Mitral valve:Mitral valve is normal. Pulmonic valve:Pulmonic valve is normal. mild pulmonic valve regurgitation. Tricuspid valve:Tricuspid valve is normal. mild tricuspid valve regurgitation. Vena cava:The inferior vena cava is normal.There is greater than 50% inspiratory collapse of the IVC. Perioperative risk calculators 2014 ACC/AHA Perioperative Cardiac Risk Stratification (assumes non-emergent, non-cardiac p rocedure) Are active cardiac conditions present? No Calculate the combined surgical and patient-specific risk: using the [place] perioperative ca rdiac risk calculator, the risk of major adverse cardiac event (MACE) is: less than 1%. No further risk stratification for coronary disease is indicated. Estimated ASA class 2 ASSESSMENT and RECOMMENDATIONS: Perioperative risk assessment: Khurram eKlly is a 28 y.o. male with diagn osis of AVN of the hip, scheduled for above noted surgery. Based on the clinical informatio n obtained and reviewed during this visit, the overall assessment is that the patient is hav ing elective major surgery with identified risk factors. See discussion below. The patient is stable / optimized for surgery. Additional testing/optimization is not needed. The maxx ent is currently scheduled at [facility] and meets inclusion criteria for that venue. Medication management recommendations: The patient was advised to continue all usual med ications except as noted in Patient Instructions (After Visit Summary given to pt) Pre-procedure antibiotic recommendation: Per standard protocol. 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 Followed closely by [facility] heme malignancy. No evidence of disease. On Acyclovir for prophylaxis. Hx of GVHD--occular, and GI manifestations, has been on Prednisone but has had some diff iculties with insurance and being able to afford the medication. He is currently only on 5mg per day and has been doing ok on that dose. He will continue on 5mg per day until he sees h is oncology MD in January. I don't think he will need additional steroid for his upcoming surge ry. He will take his 5mg on the morning of surgery. Anxiety--on Xanax as needed. Thank you for the opportunity to contribute to this patient's care. Tonya Nation MD [facility] AT [address] [address] I spent time (45 minutes, >50% of the visit) counseling the pt regarding perioperative risk (cardiac/bleeding/ DVT/ respiratory failure/ infection, etc) and methods to mitigate risk. I advised the patient regarding NPO requirements, hydration before surgery, showering, gen eral body hygiene. All pre-procedure instructions given to the patient (after-visit summary ). All of patient's questions were addressed. The patient verbalized understanding of the instructions given. P DTdocumented in this encounter Plan of Treatment +--------+---------+ [...] 2019 | Visit | Malignancy | [address] | | | | | | [address] | | | | | | [place], [place] | | | | | | [address] | | | | | | [phone] | | | | | | | | +--------+---------+ + + + + + +--------+ + + | Name | Type | Priori | Associated Diagnoses | Order Schedule | | | | ty | | | + + +--------+ + + | COMMUNICATION TO [facility] | Procedures | Routin | Preop examination | Ordered: 12/09/2018 | | LAB DRAW | | e | | | + + +--------+ + + documented as of this encounter Procedures + +--------+ + + + | Procedure Name | Priori | Date/Time | Associated Diagnosis | Comments | | | ty | | | | + +--------+ + + + | 12 LEAD ECG | Routin | 12/09/2018 | Preop examination | Results for this | | | e | 9:58 AM | | procedure are in the | | | | PDT | | results section. | + +--------+ + + + | MD COLLECTION VENOUS | Routin | 12/09/2018 | Preop examination | | | BLOOD,VENIPUNCTURE | e | 9:28 AM | | | | | | PDT | | | + +--------+ + + + | STAPH SCREEN, MRSA | Routin | 12/09/2018 | Preop examination | Results for this | | BY PCR, NASAL ONLY | e | 9:28 AM | | procedure are in the | | | | PDT | | results section. | + +--------+ + + + | PREALBUMIN, SERUM | Routin | 12/09/2018 | Preop examination | Results for this | | | e | 9:28 AM | | procedure are in the | | | | PDT | | results section. | + +--------+ + + + | ANTIBODY SCREEN | Routin | 12/09/2018 | Preop examination | Results for this | | | e | 9:28 AM | | procedure are in the | | | | PDT | | results section. | + +--------+ + + + | TYPE AND SCREEN | Routin | 12/09/2018 | Preop examination | Results for this | | | e | 9:28 AM | | procedure are in the | | | | PDT | | results section. | + +--------+ + + + | ABO & RH TYPE | Routin | 12/09/2018 | Preop examination | Results for this | | | e | 9:28 AM | | procedure are in the | | | | PDT | | results section. | + +--------+ + + + documented in this encounter Results 12 LEAD ECG (12/09/2018 9:58 AM PDT) + + + + + + | Component | Value | Ref Range | Performed | Pathologist | | | | | At | Signature | + + + + + + | VENTRICULAR | 63 | bpm | [facility] | | | RATE | | | OF | | | | | | CARDIOLOGY | | + + + + + + | ATRIAL RATE | 63 | ms | [facility] | | | | | | OF | | | | | | CARDIOLOGY | | + + + + + + | P-R | 159 | ms | [facility] | | | INTERVAL | | | OF | | | | | | CARDIOLOGY | | + + + + + + | P AXIS | 75 | deg | [facility] | | | | | | OF | | | | | | CARDIOLOGY | | + + + + + + | QRS | 98 | ms | [facility] | | | DURATION | | | OF | | | | | | CARDIOLOGY | | + + + + + + | QT | 393 | ms | [facility] | | | | | | OF | | | | | | CARDIOLOGY | | + + + + + + | QTCB | 402 | ms | [facility] | | | | | | OF | | | | | | CARDIOLOGY | | + + + + + + | R AXIS | | deg | [facility] | | | | | | OF | | | | | | CARDIOLOGY | | + + + + + + | T AXIS | 65 | deg | [facility] | | | | | | OF | | | | | | CARDIOLOGY | | + + + + + + | ECG | Sinus rhythm | | [facility] | | | IMPRESSION | | | OF | | | | | | CARDIOLOGY | | + + + + + + | ECG | ST elev, probable normal | | [facility] | | | IMPRESSION | early repol pattern- | | OF | | | | NORMAL ECG - | | CARDIOLOGY | | + + + + + + | ECG | Electronically signed | | [facility] | | | IMPRESSION | by: KATHIE WILKINSON | | OF | | | | 12-09-2018 13:15:06 | | CARDIOLOGY | | + + [...] | [facility] | [address] | [place], [place] | | | CARDIOLOGY | [address] | [address] | | + + + + + ANTIBODY SCREEN (12/09/2018 9:28 AM PDT) + + + + + [...] [facility] | [address] | [place] [address] | | | SERVICES, | [address] | | | | TRANSFUSION MEDICINE | | | | + + + + + ABO & RH TYPE (12/09/2018 9:28 AM PDT) + + + + + [...] | [facility] | [address] | [place] [address] | | | SERVICES, | [address] | | | | TRANSFUSION MEDICINE | | | | + + + + + STAPH SCREEN, MRSA BY PCR, NASAL ONLY (12/09/2018 9:28 AM PDT) + + + + + + | Component | Value | Ref Range | Performed | Pathologist | | | | | At | Signature | + + + + + + | MRSA/MSSA | Not Detected | Not Detected | [facility] | | | | | | [facility] | | | | | | SERVICES, | | | | | | CORE | | + + + + + + + + | Specimen | + + | Swab - Nasal | | (qualifier value) | + + + + + + + | Performing | Address | City/State/Zipcode | Phone Number | | Organization | | | | + + + + + | [facility] | [address] | [place] [address] | | | SERVICES, CORE | [address] | | | + + + + + PREALBUMIN (12/09/2018 9:28 AM PDT) + + + + + + | Component | Value | Ref Range | Performed | Pathologist | | | | | At | Signature | + + + + + + | PREALBUMIN | 47.3 (H) | 17.0 - 42.0 | [facility] | | | | [...] | + + + + + | [facility] - | [address] | [place] [address] | | | [place] | | | | + + + + + documented in this encounter Visit Diagnoses + + | Diagnosis | + + | Preop examination - Primary Preoperative examination, unspecified | + + | Drug-induced hyperglycemia Other abnormal glucose | + + | Pre-op evaluation Preoperative examination, unspecified | + + documented in this encounter
--- OUTSIDE RECORDS SUMMARY | ~2019-05-17 | XMS | Encounter Summary ---
Demographics + + + | Address | [address] | | | [place] [address] | + + + | Home Phone [...] Team Providers + +------+ + | Care Casino Floor Runner Name | Role | Phone | + +------+ + | Zayda Hinton | PCP | | + +------+ + Encounter Details +--------+ + + + + | Date | Type | Department | Care Team | Description | +--------+ + + + + | 08/09/ | Pharmacy | Specialty Pharmacy | | | | 2016 | Visit | Services [address] | | [address] | | [address] | | | | | | [place], [place] | | | | | | [address] | | | | | | [phone] | | | +--------+ + + + [...] [address] | | | | | | [place], [place] | | | | | | [address] | | | | | | [phone] | | | | | | | | +--------+---------+ + + + documented as of this encounter Visit Diagnoses Not on filedocumented in this encounter"
--- OUTSIDE RECORDS SUMMARY | ~2019-05-17 | XMS | Encounter Summary ---
Demographics + + + | Address | [address] | | | [place] [address] | + + + | Home Phone [...] Team Providers + +------+ + | Care Lab Engineer Name | Role | Phone | [...] | | | | Christian Barry | [place], [place] | | | | | [address] | [address] | | | | | Debi [place] Mailcode: | [phone] | | | | | [facility] | | | | | | [place], | | | | | | [place] [address] | | | | | | [phone] | | | +--------+--------+ + + + [...] [address] | | | | | | [place] | | | | | | [address] | | | | | | [phone] | | | | | | | | +--------+---------+ + + + documented as of this encounter Visit Diagnoses Not on filedocumented in this encounter"
--- OUTSIDE RECORDS SUMMARY | ~2019-05-17 | XMS | Encounter Summary ---
Demographics + + + | Address | [address] | | | [place] [address] | + + + | Home Phone [...] Team Providers + +------+ + | Care Center Punch Operator Name | Role | Phone | [...] | | | | Christian Barry | [place], [place] | | | | | [address] | [address] | | | | | Debi [place] Mailcode: | [phone] | | | | | [facility] | | | | | | [place], | | | | | | [place] [address] | | | | | | [phone] | | | +--------+ + + + [...] Rd | | | | | | [place], [place] | | | | | | [address] | | | | | | [phone] | | | | | | | | +--------+---------+ + + + documented as of this encounter Visit Diagnoses Not on filedocumented in this encounter"
--- OUTSIDE RECORDS SUMMARY | ~2019-05-17 | XMS | Encounter Summary ---
Demographics + + + | Address | [address] | | | [place] [address] | + + + | Home Phone [...] Team Providers + +------+ + | Care Diamond Selector Name | Role | Phone | + +------+ + | Zayda Hinton | PCP | | + +------+ + Encounter Details +--------+ + + + + | Date | Type | Department | Care Team | Description | +--------+ + + + + | 10/24/ | Pharmacy | Specialty Pharmacy | | | | 2015 | Visit | Services [address] | | | | | [address] | | | | | | [place], [place] | | | | | | [address] | | | | | | [phone] | | | +--------+ + + + [...] 2019 | Visit | Malignancy | [address] [facility] [address] [facility] | | | | | | [address] | | | | | | [place], [place] | | | | | | [address] | | | | | | [phone] | | | | | | | | +--------+---------+ + + + documented as of this encounter Visit Diagnoses Not on filedocumented in this encounter"
--- OUTSIDE RECORDS SUMMARY | ~2019-05-17 | XMS | Encounter Summary ---
Demographics + + + | Address | [address] | | | [place] [address] | + + + | Home Phone [...] Providers + +------+ + | Care Gas And Oil Checker Name | Role | Phone | + +------+ + | No Pcp Per Patient | PCP | Unavailable | + +------+ + Encounter Details +--------+ + + + + | Date | Type | Department | Care Team | Description | +--------+ + + + + | 10/09/ | Clinical | [facility] | | | | 2017 | Support | Hematologic | | | | | Staff | Malignancies at [facility] | | | | | | [address] | | | | | | Debi Burger Mailcode: | | | | | | [address] | | | | | | [place], | | | | | | [place] [address] | | | | | | [phone] | | | +--------+ + + + [...] documented as of this encounter Progress Notes Kezia Coronado RN - 10/09/2016 11:20 AM PDTFormatting of this note might be different f rom the original. INFUSION NURSING NOTE Name: Khurram Kelly Date: 10/09/2016 Provider: Dr. Garcia/ORLY Segovia Allergies: Khurram has No Known Allergies. 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 He also has no past medical history of Acute, but ill-defined, cerebr ovascular disease; Anxiety state; Arrhythmia; Asthma; At risk for colon cancer; Blindness; C hronic airway obstruction (HCC); Congestive heart failure (HCC); Depressive disorder; Disord er of adrenal gland (HCC); Encounter for extracorporeal dialysis (HCC); GERD (gastroesophage al reflux disease); Hearing loss; Heart attack (HCC); Hernia, hiatal; High risk for colon ca ncer; Hyperlipidemia; Hypertension; Irritable bowel syndrome; Kidney stones; Migraine; Nonps ychotic mental disorder; Other and unspecified symptoms and signs involving general sensatio ns and perceptions; Panic disorder; Pneumonia, organism unspecified; Pulmonary tuberculosis; Regional enteritis (HCC); Shortness of breath; Sleep apnea; Type 1 diabetes mellitus (HCC); Type 2 diabetes mellitus (HCC); Ulcerative colitis (HCC); Undiagnosed cardiac murmurs; or U TI (urinary tract infection). Narrative: Patient ambulated to the clinic accompanied by caregiver. Patient is here today for management of nausea, labs, supportive care and provider appointment with PILI Segovia. Nursing Assessment: Pt reports n/v came on suddenly about 14 hours ago. Pt takes zofran regularly with breakth rough nausea. Pt has been able to drink some fluids, but has not had any solid food since l ast evening. Reports having some lightheadedness, one loose stool daily, but no other sympt oms. Pt denies fevers, chills, headache, cough, SOB, active bleeding, edema or rash. Vascular Access: Right AC accessed with a 22 gauge PIV using PIV start kit. Labs drawn an d sent. Tolerated procedure well. Site dressed with sterile gauze and Coban. Labs: Lab Results Component Value Date WBC 6.9 10/09/2016 HB 12.4 (L) 10/09/2016 HCT 35.7 (L) 10/09/2016 PLT 304 10/09/2016 BUN 12 10/09/2016 CR 0.8 10/09/2016 Treatment Provided: Pt received zofran 4 mg IV with minimal relief of nausea 30 minutes later. Pt received com pazine 10 mg IV with better relief of nausea. Pt able to keep liquids down and reports he w ill continue antiemetics at home. Pt verbalized understanding that he is to call provider/t cruz if nausea is unrelieved with antiemetic, zofran, he is using at home. Pt received NS 1L over approximately one hour without complications. PIV d/c'd. See MAR f or details. Discharge: Patient was reminded to call clinic with temp > 100.4, chills, s/s of bleeding or uncontrol led N/V/D/C. Patient verbalizes understanding. Patient was instructed to check out at the ont desk prior to leaving the clinic. Patient d/c d ambulatory with family. Next App[facility]me nt [facility] is on 10/12/16 at 11:55 am with Yari Garcia MD. Kezia Coronado, RN documented in this encounter Plan of [...] Rd | | | | | | [place], [place] | | | | | | [address] | | | | | | [phone] | | | | | | | | +--------+---------+ + + + documented as of this encounter Procedures + +--------+ + + + | Procedure Name | Priori | Date/Time | Associated Diagnosis | Comments | | | ty | | | | + +--------+ + + + | CBC+DIFF,POC | Urgent | 10/09/2016 | Nausea and | Results for this | | | | 12:57 PM | vomiting, | procedure are in the | | | | PDT | intractability of | results section. | | | | | vomiting not | | | | | | specified, | | | | | | unspecified vomiting | | | | | | type | | + +--------+ + + + | CMP, POC (BMP+LFT) | Urgent | 10/09/2016 | Nausea and | Results for this | | | | 12:57 PM | vomiting, | procedure are in the | | | | PDT | intractability of | results section. | | | | | vomiting not | | | | | | specified, | | | | | | unspecified vomiting | | | | | | type | | + +--------+ + + + | TREATMENT PARAMETERS | Routin | 10/09/2016 | Acute | | | #2 - [facility] | e | 12:42 PM | myelomonocytic | | | | | PDT | leukemia in | | | | | | remission (HCC) | | + +--------+ + + + | TREATMENT PARAMETERS | Routin | 10/09/2016 | Acute | | | #2 - [facility] | e | 12:42 PM | myelomonocytic | | | | | PDT | leukemia in | | | | | | remission (HCC) | | + +--------+ + + + | TREATMENT PARAMETERS | Routin | 10/09/2016 | Acute | | | #2 - [facility] | e | 12:42 PM | myelomonocytic | | | | | PDT | leukemia in | | | | | | remission (HCC) | | + +--------+ + + + | TREATMENT PARAMETERS | Routin | 10/09/2016 | Acute | | | #2 - [facility] | e | 12:42 PM | myelomonocytic | | | | | PDT | leukemia in | | | | | | remission (HCC) | | + +--------+ + + + | TREATMENT PARAMETERS | Routin | 10/09/2016 | Acute | | | #2 - [facility] | e | 12:42 PM | myelomonocytic | | | | | PDT | leukemia in | | | | | | remission (HCC) | | + +--------+ + + + | NURSING | Routin | 10/09/2016 | Acute | | | COMMUNICATION #3 - | e | 12:42 PM | myelomonocytic | | | [facility] | | PDT | leukemia in | | | | | | remission (HCC) | | + +--------+ + + + | NURSING | Routin | 10/09/2016 | Acute | | | COMMUNICATION #2 - | e | 12:42 PM | myelomonocytic | | | [facility] | | PDT | leukemia in | | | | | | remission (HCC) | | + +--------+ + + + | NURSING | Routin | 10/09/2016 | Acute | | | COMMUNICATION #1 - | e | 12:42 PM | myelomonocytic | | | [facility] | | PDT | leukemia in | | | | | | remission (HCC) | | + +--------+ + + + | TREATMENT PARAMETERS | Routin | 10/09/2016 | Acute | | | #1 - [facility] | e | 12:42 PM | myelomonocytic | | | | | PDT | leukemia in | | | | | | remission (HCC) | | + +--------+ + + + | TREATMENT PARAMETERS | Routin | 10/09/2016 | Acute | | | #1 - [facility] | e | 12:42 PM | myelomonocytic | | | | | PDT | leukemia in | | | | | | remission (HCC) | | + +--------+ + + + | CULTURE, BLOOD BACTI | Urgent | 10/09/2016 | Nausea and | Results for this | | & YEAST [facility] | | 12:41 PM | vomiting, | procedure are in the | | | | PDT | intractability of | results section. | | | | | vomiting not | | | | | | specified, | | | | | | unspecified vomiting | | | | | | type | | + +--------+ + + + | CULTURE, BLOOD BACTI | Urgent | 10/09/2016 | Nausea and | Results for this | | & YEAST | | 12:41 PM | vomiting, | procedure are in the | | | | PDT | intractability of | results section. | | | | | vomiting not | | | | | | specified, | | | | | | unspecified vomiting | | | | | | type | | + +--------+ + + + | MAGNESIUM, PLASMA | Urgent | 10/09/2016 | Nausea and | Results for this | | | | 12:41 PM | vomiting, | procedure are in the | | | | PDT | intractability of | results section. | | | | | vomiting not | | | | | | specified, | | | | | | unspecified vomiting | | | | | | type | | + +--------+ + + + documented in this encounter Results CMP, POC (BMP+LFT) (10/09/2016 12:57 PM PDT) + +---------+ + + + [...] + + + | ALK PHOS, | 91 | 41 - 99 U/L | [facility] [...] + + + | AST, CMP | 36 | 0 - 41 U/L | [facility] [...] 6.8 | 6.1 - 7.9 g/dL | [facility] - | | | TOTAL, CMP | [...] [facility] | [address] | [place], [place] | | | [address] | [facility] | [address] | | | TESTS | | | | + + + + + CBC+DIFF,POC (10/09/2016 12:57 PM PDT) + + + + + + | Component | Value | Ref Range | Performed | Pathologist | | | | | At | Signature | + + + + + + | WBC POC | 6.9 | 4.4 - 11.0 | [facility] - | | | | | 10*3/uL | [facility] | | | | | | [facility]TER | | | | | | OF CARE | | | | | | TESTS | | + + + + + + | RBC POC | 3.93 (L) | 4.50 - 6.00 | [facility] - | | | | | 10*6/uL | [facility] | | | | | | [facility] | | | | | | OF CARE | | | | | | TESTS | | + + + + + + | HGB POC | 12.4 (L) | 13.5 - 17.5 | [facility] - | | | | | g/dL | [facility] | | | | | | [facility]IE CARTER | | | | | | OF CARE | | | | | | TESTS | | + + + + + + | HCT POC | 35.7 (L) | 41.0 - 53.0 % | [facility] - | | | | | | [facility] | | | | | | [facility] CARTER | | | | | | OF CARE | | | | | | TESTS | | + + + + + + | MCV POC | 90.8 | 80.0 - 96.0 fL | [facility] - | | | | | | [facility] | | | | | | [facility] CARTER | | | | | | OF CARE | | | | | | TESTS | | + + + + + + | MCH POC | 31.6 | 28.5 - 32.3 pg | [facility] - | | | | | | [facility] | | | | | | [facility] | | | | | | OF CARE | | | | | | TESTS | | + + + + + + | MCHC POC | 34.7 | 33.0 - 35.5 | [facility] - | | | | | g/dL | [facility] | | | | | | RUTHIE CARTER | | | | | | OF CARE | | | | | | TESTS | | + + + + + + | RDW SD, POC | 42.6 | 35.1 - 46.3 fL | [facility] - | | | | | | [facility] | | | | | | [facility]IE CARTER | | | | | | OF CARE | | | | | | TESTS | | + + + + + + | PLT POC | 304 | 150 - 400 | [facility] - | | | | | 10*3/uL | [facility] | | | | | | R[facility]IE CARTER | | | | | | OF CARE | | | | | | TESTS | | + + + + + + | MPV POC | 7.6 (L) | 9.7 - 12.3 fL | [...] + + + | LYMPH% POC | 23.3 | 18 - 42 % | [facility] - | | | | | | [facility] | | | | | | [facility] | | | | | | OF CARE | | | | | | TESTS | | + + + + + + | MONO %, POC | 9.8 (H) | 3.5 - 9.0 % | [facility] - | | | | | | [facility] | | | | | | [facility] | | | | | | OF CARE | | | | | | TESTS | | + + + + + + | EOS %, POC | 0.1 (L) | 1.0 - 3.0 % | [...] + + + + | NEUTROPHIL# | 4.6 | 1.8 - 7.7 | [facility] - [...] [facility] | [address] | [place], [place] | | | [address] | [address] | [address] | | | TESTS | | | | + + + + + CULTURE, BLOOD BACTI & YEAST YESSICA (10/09/2016 12:41 PM PDT) + + + + + + | Component | Value | Ref Range | Performed | Pathologist | | | | | At | Signature | + + + + + + | CULTURE | Final Report:No Bacteria | | [facility] | | | RESULT | or Yeast isolated at 5 | | LABORATORY | | | | days. | | SERVICES, | | | | [...] [facility] | [address] | [place] [address] | | | SERVICES, CORE | [address] | | | + + + + + MAGNESIUM, PLASMA (10/09/2016 12:41 PM PDT) + +-------+ + + + | Component | Value | Ref Range | Performed | Pathologist | | | | | At | Signature | + +-------+ + + + | MAGNESIUM,P | 1.8 | 1.8 - 2.5 mg/dL [...] | + + + + + | [facility] | [address] | [place] [address] | | | SERVICES, CORE | [address] | | | + + + + + documented in this encounter Visit Diagnoses + + | Diagnosis | + + | Nausea and vomiting, intractability of vomiting not specified, unspecified vomiting | | type - Primary | + + | 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) Acute myeloid leukemia in remission | + + documented in this encounter Administered Medications + +--------+ +------+------+------+ | Medication Order | MAR | Action | Dose | Rate | Site | | | Action | Date | | | | + +--------+ +------+------+------+ | ondansetron (ZOFRAN) injection | Given | 10/10/19 | 4 mg | | | | 4 mg 4 mg, intravenous, ONCE, 1 | | 17 12:35 | | | | | dose, 10/09/16 at 1200 | | PM PDT | | | | + +--------+ +------+------+------+ +---+---+ | | | +---+---+ + +-------+ +-------+---+---+ | prochlorperazine (COMPAZINE) | Given | 10/10/19 | 10 mg | | | | injection 10 mg 10 mg, | | 17 1:25 | | | | | intravenous, ONCE, 1 dose, Mon | | PM PDT | | | | | 10/09/16 at 1315 | | | | | | + +-------+ +-------+---+---+ +---+---+ | | | +---+---+ + +---------+ + +---+ + | sodium chloride 0.9% IV | New Bag | 10/10/19 | 1,000 mL | | Right AC | | infusion 1,000 mL, intravenous, | | 17 12:30 | | | | | ONCE, 1 dose, 10/09/16 at 1200 | | PM PDT | | | | + +---------+ + +---+ + +---+---+ | | | +---+---+ documented in this encounter"
--- OUTSIDE RECORDS SUMMARY | ~2019-05-17 | XMS | Encounter Summary ---
Demographics + + + | Address | [address] | | | [place] [address] | + + + | Home Phone [...] Team Providers + +------+ + | Care Car Sealer Name | Role | Phone | + +------+ + | Pending Pcp Addition | PCP | Unavailable | + +------+ + Reason for Visit Chemotherapy (Routine) +--------+--------+ + + + + [...] | | | Procedures | | [address] | | | | | [place] | | [address] | | | | | [address] | | [address] GALLATIN, | | | | | INJECTION, 1 | | [place] | | | | | [place] | | [address] | | | | | CHM,IV | | Phone: | | | | | INFSN,1 HR | | [phone] | | | | | [place] [facility],IV | | Fax: | | | | | INFSN,ADDL | | [phone] | | | | | HR | | | +--------+--------+ + + + + Encounter Details +--------+ + + + + | Date | Type | Department | Care Team | Description | +--------+ + + + + | 07/20/ | Clinical | Center for | | | | 2016 | Support | Hematologic | | | | | Staff | Malignancies at [facility] | | | | | | [address] | | | | | | Debi Burger Mailcode: | | | | | | [id number] | | | | | | [place], | | | | | | [place] [address] | | | | | | [phone] | | | +--------+ + + + [...] + + + | Blood Pressure | 118/74 | 07/20/2015 3:19 PM | | | | | PST | | + + + + + | Pulse | 85 | 07/20/2015 3:19 PM | | | | | PST | | + + + + + | Temperature | 36.7 C (98.1 F) | 07/20/2015 3:19 PM | | | | | PST | | + + + + + | Respiratory Rate | 16 | 07/20/2015 3:19 PM | | | | | PST | | + + + + + | Oxygen Saturation | 98% | 07/20/2015 3:19 PM | | | | | PST | | + + + + + | Inhaled Oxygen | - | - | | | Concentration | | | | + + + + + | Weight | 83.9 kg (184 lb 15.5 | 07/20/2015 3:19 PM | | | | oz) | PST | | + + + + + | Height | - | - | | + + + + + | Body Mass Index | 23.43 | 07/15/2015 1:57 PM | | | | | PST | | + + + + + documented in this encounter Progress Notes Jessica Ramirez, RN - 07/20/2015 5:15 PM PSTPatient arrrives ambulatory with for D ay 2 Cycle 1 with Decitibine. Kermit Gambleliat is a 24 year old male with newly diagnos ed AML, s/p 3+7 and reinduction with HAM awaiting Stem cell tx in August for aggressive di sease now scheduled to get Decitibine to hold disease until transplant. Patient reports he is feeling fine today. He has no complaints. He says he had more energ y after getting blood yesterday. The patient denies colds, flu, fever, infection, nausea, vo miting, diarrhea, constipation, signs or symptoms of anemia, skin rash, urinary issues, and signs or symptoms of bleeding. The patient reports that he is eating well and drinking at least two liters of fluid daily. Chemotherapy was checked by 2 RNs. Decitibine was infused per chemotherapy protocol and co mpleted without adverse event. Positive blood return noted pre and post infusion. For infu cricket details, see MAR. Patient left ambulatory and will RTC tomorrow for Day 3 of chemo and lab draw per Dr. Garcia/ possible transfusion. Tdocumented in this encounter Plan of Treatment +--------+---------+ [...] 2019 | Visit | Malignancy | [address] [facility] | | | | [facility] | | | | | [place], [place] | | | | | | [address] | | | | | | [phone] | | | | | | | [...] 42 mg in | New Bag | 07/20/19 | 42 mg | 258.4 | | | NaCl (PF) IV 42 mg (20 mg/m2 | | 16 4:00 | | mL/hr | | | 2.1 m2 Treatment plan recorded | | PM PST | | | | | BSA), intravenous, Administer | | | | | | | over 1 Hours, ONCE, 1 dose, Tue | | | | | | | 07/20/15 at 1530, HIGH RISK | | | | | | | MEDICATION-CHEMOTHERAPY , | | | | | | + +---------+ +-------+--------+------+ +---+---+ | | | +---+---+ + +-------+ +------+---+---+ | ondansetron (ZOFRAN) tablet 8 | Given | 07/20/19 | 8 mg | | | | mg 8 mg, oral, ONCE, 1 dose, Tu | | 16 3:20 | | | | | 07/20/15 at 1530 | | PM PST | | | | + +-------+ +------+---+---+ +---+---+ | | | +---+---+ documented in this encounter"
--- OUTSIDE RECORDS SUMMARY | ~2019-05-17 | XMS | Encounter Summary ---
Demographics + + + | Address | [address] | | | [place] [address] | + + + | Home Phone [...] Team Providers + +------+ + | Care Channeler Runner Name | Role | Phone | + +------+ + | Zayda Hinton | PCP | | + +------+ + Reason for Visit + + + | Reason | Comments | + + + | Follow-up encounter | | + + + Encounter Details +--------+ + + + + | Date | Type | Department | Care Team | Description | +--------+ + + + + | Telephone | [facility] | Chris [place], | Follow-up encounter | | 2017 | | [facility] [address] | | | | | | [place] Mailcode: | | | | | | [address] [facility] | | | | | | [facility] and He[facility], | | | | | | [address] | | | | | | [place], [place] | | | | | | [address] | | | | | | [phone] | | | +--------+ + + + [...] | | | | | | [address] | | | | | | [place], [place] | | | | | | [address] | | | | | | [phone] | | | | | | | | +--------+---------+ + + + documented as of this encounter Visit Diagnoses Not on filedocumented in this encounter"
--- OUTSIDE RECORDS SUMMARY | ~2019-05-17 | XMS | Encounter Summary ---
Demographics + + + | Address | [address] | | | [place] [address] | + + + | Home Phone [...] Team Providers + +------+ + | Care Rock Wool Insulator Name | Role | Phone | + [...] | 2017 | | Hematologic | [address] [facility] | | | | | Malignancies at | [address] | | | | | [place] Barry | [place], [place] | | | | | [address] | [address] | | | | | Debi Burger Mailcode: | [phone] | | | | | [facility] | | | | | | [place], | | | | | | [place] [address] | | | | | | [phone] | | | +--------+--------+ + + + [...] [address] | | | | | | [place] | | | | | | [address] | | | | | | [phone] | | | | | | | | +--------+---------+ + + + documented as of this encounter Visit Diagnoses Not on filedocumented in this encounter"
--- OUTSIDE RECORDS SUMMARY | ~2019-05-17 | XMS | Encounter Summary ---
Demographics + + + | Address | [address] | | | [place] [address] | + + + | Home Phone [...] Team Providers + +------+ + | Care Skiing Instructor Name | Role | Phone | [...] | | | | | [address] | | | | | | [address] | | | | | | [place] Mailcode: [id number] | | | | | | [place] | | | | | | [address] [facility] [place] | | | | | | [address] | | | | | | [phone] | | | +--------+ + + + [...] Rd | | | | | | [place], [place] | | | | | | [address] | | | | | | [phone] | | | | | | | | +--------+---------+ + + + documented as of this encounter Visit Diagnoses Not on filedocumented in this encounter"
--- OUTSIDE RECORDS SUMMARY | ~2019-05-17 | XMS | Encounter Summary ---
Demographics + + + | Address | [address] | | | [place] [address] | + + + | Home Phone [...] Team Providers + +------+ + | Care Fugitive Investigator Name | Role | Phone | + +------+ + PCP | Unavailable | + +------+ + Encounter Details +--------+ + + + + | Date | Type | Department | Care Team | Description | +--------+ + + + + | 05/19/ | Hospital | LAB SURGICAL | | | | 2014 | Encounter | PATHOLOGY [address] | | | | | | [address] | | | | | | [place], [place] | | | | | | [address] | | | +--------+ + + + + Social History + +-------+ +--------+------+ | Tobacco Use | Types | Packs/Day | Years | Date | | | | | Used | | + +-------+ +--------+------+ | Never Assessed | | | | | + +-------+ +--------+------+ + + + | Sex Assigned at [...] + + + +---------+ + + | famotidine 10 mg | Take by mouth. | | 0 | 05/18/20 | | | oral tablet | | | | 15 | 5 | + + + +---------+ + + [...] Rd | | | | | | [place] | | | | | | [address] | | | | | | [phone] | | | | | | | | +--------+---------+ + + + documented as of this encounter Visit Diagnoses Not on filedocumented in this encounter"
--- OUTSIDE RECORDS SUMMARY | ~2019-05-17 | XMS | Encounter Summary ---
Demographics + + + | Address | [address] | | | [place] [address] | + + + | Home Phone [...] Team Providers + +------+ + | Care Salesperson New Cars Name | Role | Phone | + [...] Description | +--------+---------+ + + + | 09/07/ | Surgery | 6A Intra Op [facility] | Lobo Jeffers, | LEFT TOTAL HIP | | 2017 | | [facility] | MD [address] [facility] | ARTHROPLASTY | | | | Admitting Desk | [facility] Tao | | | | | Located on the 9 | [place], [place] | | | | | floor [address] [facility] | [address] | | | | | [facility] | [phone] | | | | | [place], [place] | | | | | | [address] | | | +--------+---------+ + + + [...] Paul NP - 09/08/2016 12:15 PM PST [facility] [place] DEPARTMENT OF ORTHOPAEDICS & REHABILITATION INPATIENT HOSPITAL DISCHARGE SUMMARY & INTERDISCIPLINARY INSTRUCTIONS Patient: Khurram Kelly CSN: [id number] Admission Date: 09/07/2016 Discharge Date: 09/08/2016 Attending Physician: Lobo Jeffers MD PCP: No Pcp Per PATIENT Service: [facility] Orthopaedics & Rehabilitation Diagnoses Principal Final Diagnosis: 1.Avascular necrosis, left femoral head. Additional Diagnoses: History of : Acute myeloid leukemia (AML), M4 (HCC)- primary induction failure [facility] RESEARCH PROTOCOL PATIENT (RESPRO) Electrolyte abnormality ADHD [...] [facility]. [facility] the [facility] tolerated oral intake sufficient to maintain nutrition and hydrati on. The surgical wound remained clean, dry, and intact without signs concerning for infectio n. The patient was felt appropriate for discharge to home, and the patient and/or family nc mbers agree with this course of action. [...] they suspect your wound is infected. Call [facility] Orthopedics first at [phone]. Activity Weight bear as tolerated on both lower extremities. Restrictions: Posterior hip precautions on operative side (no hip flexion >90 degrees, no c rossing your legs, no turning your foot towards the middle of the body (internal rotation). Destination: Destination: Home Condition on Discharge Stable Follow-Up Appointments ORTHOPEDICS OUTPATIENT CLINIC: Future Appointments Provider Department Dept Phone Center 09/11/2016 8:30 AM [facility] [phone] Center for H 09/11/2016 9:25 AM Yari Garcia; [facility] SUPPORT Center for Hematologic Malignancies [facility] [phone] Center for H 09/20/2016 10:45 AM Janette Das Orthopaedics at [facility] [phone] Orthopedics 10/18/2016 10:20 AM Lobo Jeffers Orthopaedics at [facility] [phone] Orthopedics Follow up in 2 weeks (or as previously scheduled). Call [phone] to confirm or schedule this appointment. PCP: [...] 1 tablet by mouth twice daily (ev gloria Sunday and ). Qty: 16 tablet, Refills: 2 STOP taking these medications ondansetron 8 mg oral tablet Comments: Reason for Stopping: [facility] Orthopaedic Service Pain Policy At the 6-week [...] administration instructions. - Call Orthopedic Clinic at [phone] if any persistent, localized swelling that does [...] and ask for the orthopaedic surgery resident non ferrous material handler. Additional Post-Op Instructions / What to Expect [...] [facility], it has been our pleasure. Latonya Paul NP [facility] Department of Orthopaedics & Rehabilitation [address] [place] [address] Mail Code: OP31 [facility] [id number] documented in this enc ounter Progress Notes Kanchan Luis MD - 09/08/2016 10:14 AM PSTFormatting of this note might be different fr om the original. [facility] DEPARTMENT OF ORTHOPAEDICS & REHABILITATION Progress Note [...] Discharge: Likely Today Kanchan Luis MD 09/08/2016 [facility] Department of Orthopaedics & Rehabilitation [address] [place] [address] Mail Code: OP31 [facility] [id number] Kanchan Amado MD - 09/07/2016 10:51 AM PST [facility] DEPARTMENT OF ORTHOPAEDICS & REHABILITATION POST-OPERATIVE CHECK [...] Postop xray reviewed Kanchan Luis MD 09/07/2016 [facility] [place] Department of Orthopaedics & Rehabilitation [address] [place] [address] Mail Code: OP31 [facility] [id number] [email or web address] Pager: [phone] documented in this e ncounter Plan of [...] Rd | | | | | | [place], [place] | | | | | | [address] | | | | | | [phone] | | | | | | | [...] | | POC | | PST | ([facility]) | results section. | + +--------+ + + + | CAPILLARY BLOOD | Routin | 09/07/2016 | Avascular necrosis | Results for this | | GLUCOSE (NO CHG), | e | 9:30 AM | of bone of left hip | procedure are in the | | POC | | PST | ([facility]) | results section. | + +--------+ + [...] | + + + + + | [facility] | [address] | [place] [address] | | | SERVICES, CORE | [address] | | | + + + + + OPERATION RECORD (09/08/2016 9:12 AM PST) + + | Procedure Note | + + | Lobo Jeffers MD - 09/07/2016 10:29 AM PST Date of Service: 09/07/2016 | | Attending Surgeon:Lobo Jeffers MD Counter Attendant(s):Janette Begum | | SIDNEY Das, Orthopedic PA. Janette was used as the paraprofessional education assistant, as there were no | | [...] capsule was repaired with 0 Vicryl in utscua-cd-wrypy | | fashion. The gluteal fibers and the IT band were repaired with 0 Vicryl in | | dbplgm-lz-mnepd fashion. The subcutaneous tissue was repaired with [...] | | 09/07/2016 09:13:48DT: 09/07/2016 10:29:24Job #: [id number] | |Postoperative Plan: The patient can be weightbearing as tolerated. Posterior hip precauti ons and discharged when stable. | | | | | | | |Lobo Jeffers MD | |[facility] | | | | | | /[id number] | + + CBC (HEMOGRAM) ONLY (09/08/2016 [...] May 24, 2016. | [facility] | | | LABORATORY | | | INDRA SHARIF | + + + + + + + + | Performing | Address | City/State/Zipcode | Phone Number | | Organization | | | | + + + + + | [facility] | [address] | [place] [address] | | | SERVICES, INDRA | [address] [...] [facility] | [address] | [place], [place] | | | [facility] POINT OF CARE | [address] | [address] | | | TESTS | | | [...] + + + | [facility] | [address] | [place], [place] | | | RUTHIE CARTER OF [facility] | [address] | [address] | | | TESTS | | | | + + + + + PROCEDURE NOTE (09/07/2016 9:08 AM PST) + + + | Narrative | Performed At | + + + | Lobo Jeffers MD 09/07/2016 9:08 AM Brief Operative Note | | | Preop diagnosis:avascular necrosis left hip Postop | | | diagnosis:same Procedure:left total hip arthropasty Surgeon: | | | Zeyad Counter Attendant:Audrey Beckett Estimated Blood Loss:200 | | | [...] [facility] | [address] | [place], [place] | | | RUTHIE CARTER OF CARE | [address] | [address] | | | TESTS | | | [...] MRN | | | | | | [id number] and | | | | | | [...] identified. | | | | | | Resource Manager sections | | | | | | are | | | | | | submitted,decalcificatio | | | | | | n by hydrochloric acid. | | | | | | Cassette Index:A1: | | | | | | articular surfaceA2: | | | | | | product support representative margin | | | | | [...] | + + + + + | [facility] | [address] | [place] [address] | | | PATHOLOGY | [address] | | | + + + + + CARDIOLOGY (09/07/2016 12:00 AM PST) + + + | Narrative | Performed At | + + + | | | + + + documented in this encounter Visit Diagnoses Not on filedocumented in this encounter Administered Medications + +--------+ [...] | First dose on Lupe 09/07/16 at 1100, | | AM PST | [...] 17 11:16 | | | | | Lupe 09/07/16 at 1200, Until | | AM [...] | | | | | 09/08/16 at 1953 | | | | | | + [...] | | | | | 1232, Until 09/08/16 at 1953, | | | | | [...] | | | BREAKFAST, First dose on Sun | | AM PST | | [...] at 1201, Until 09/08/16 | | | at 1954, nausea/vomiting, first | | | line | [...] | | | 0925, Until Sun09/08/16 at 1954, | | | | | | | moderate pain | | | | | | + +-------+ +-------+---+---+ +---+---+ | | | +---+---+ + +-------+ +-------+---+---+ | oxyCODONE CR (OXYCONTIN) tablet | Given | 09/09/19 | 20 mg | | | | 20 mg 20 mg, oral, EVERY 12 | | 17 11:57 | | | | | HOURS, First dose on Sun09/07/16 | | AM PST | | | [...]
--- OUTSIDE RECORDS SUMMARY | ~2019-05-17 | XMS | Encounter Summary ---
Demographics + + + | Address | [address] | | | [place] [address] | + + + | Home Phone [...] Team Providers + +------+ + | Care Pipe Threading Machine Operator Name | Role | Phone | + +------+ + | Zayda Hinton | PCP | | + +------+ + Encounter Details +--------+--------+ + + + | Date | Type | Department | Care Team | Description | +--------+--------+ + + + | 11/18/ | Travel | | | | | [...] Rd | | | | | | [place], [place] | | | | | | [address] | | | | | | [phone] | | | | | | | | +--------+---------+ + + + documented as of this encounter Visit Diagnoses Not on filedocumented in this encounter"
--- OUTSIDE RECORDS SUMMARY | ~2019-05-17 | XMS | Encounter Summary ---
Demographics + + + | Address | [address] | | | [place] [address] | + + + | Home Phone [...] Team Providers + +------+ + | Care Auditor Internal Name | Role | Phone | + +------+ + | Pending Pcp Addition | PCP | Unavailable | + +------+ + Reason for Visit +--------+ + | Reason | Comments | +--------+ + | Other | FYI of ortho referral | +--------+ + Encounter Details +--------+ + + + + | Date | Type | Department | Care Team | Description | +--------+ + + + + | 07/13/ | Telephone | Center for | Aspen Cummins FNP | Other (FYI of ortho | | 2017 | | Hematologic | [address] [facility] | referral) | | | | Malignancies at | [facility] | | | | | [address] | [place], [place] | | | | | [address] [facility] | [address] | | | | | [facility] Mailcode: | [phone] | | | | | [id number] [address] | | | | | | [facility] [place], | | | | | | [place] [address] | | | | | | [phone] | | | +--------+ + + + [...] 2019 | Visit | Malignancy | [address] [facility] | | | | | | [address] | | | | | | [place] | | | | | | [address] | | | | | | [phone] | | | | | | | | +--------+---------+ + + + documented as of this encounter Visit Diagnoses Not on filedocumented in this encounter"
--- OUTSIDE RECORDS SUMMARY | ~2019-05-17 | XMS | Encounter Summary ---
Demographics + + + | Address | [address] | | | [place] [address] | + + + | Home Phone [...] Team Providers + +------+ + | Care Ct Technician Name | Role | Phone | + +------+ + | No Pcp Per Patient | PCP | Unavailable | + +------+ + Reason for Referral PROC - Inpatient Surgery (Routine) +--------+--------+ + + + + | Status | Reason | Specialty | Diagnoses / | Referred By | Referred To | | | | | Procedures | Contact | Contact | +--------+--------+ + + + + | Closed | | Orthopedics | Diagnoses | Cummins, | Zeyad, | | | | | Avascular | [place] | Lobo Orozco MD | | | | | necrosis of | [address] | [address] | | | | | bone of | [facility] | [facility] | | | | | right hip | Rd | Rd [place], | | | | | ([facility]) | [place], [place] | [place] | | | | | Unspecified | [address] | [address] | | | | | open wound, | Phone: | Phone: | | | | | right hip, | [phone] | [phone] | | | | | initial | Fax: | Fax: | | | | | encounter | [phone] | [phone] | | | | | Procedures | | | | | | | REQUEST TO | | | | | | | SURGERY | | | | | | | CIS COORDINATOR | | | | | | | ND TOTAL HIP | | | | | | | | | | | | | | ARTHROPLASTY | | | | | | | ND NEG | | | | | | | PRESS WOUND | | | | | | | TX, =< 50 | | | | | | | SQCM | | | +--------+--------+ + + + + Reason for Visit + + + | Reason | Comments | + + + | Follow-up visit | | + + + Consultation (Urgent) +--------+--------+ + + + + | Status | Reason | Specialty | Diagnoses / | Referred By | Referred To | | | | | Procedures | Contact | Contact | +--------+--------+ + + + + | Closed | | Orthopedics | Diagnoses | Placido, | Zeyad, | | | | | AVN of | [place] | Lobo Orozco MD | | | | | femur (HCC) | [address] | [address] | | | | | Procedures | [facility] | [facility] | | | | | CONSULT TO | Rd | Rd [place], | | | | | ORTHOPEDICS | [place], [place] | [place] | | | | | AND | [address] | [address] | | | | | REHABILITATI | Phone: | Phone: | | | | | ON | [phone] | [phone] | | | | | | Fax: | Fax: | | | | | | [phone] | [phone] | +--------+--------+ + + + + Encounter Details +--------+---------+ + + + | Date | Type | Department | Care Team | Description | +--------+---------+ + + + | 04/02/ | Office | Orthopaedics at | Lobo Jfefers, | Arthralgia of hip, | | 2017 | Visit | [facility] [address] | [address] | unspecified | | | | [address] | [facility] [address] | laterality (Primary | | | | Mailcode: [id number] | [place], [place] | Dx); [facility] | | | | [facility] | [address] | necrosis of bone of | | | | [place], [place] | [phone] | right hip (HCC) | | | | [address] | | | | | | [phone] | | | +--------+---------+ + + + [...] + + + | Blood Pressure | 149/79 | 04/02/2017 1:46 PM | | | | | PDT | | + + + + + | Pulse | 76 | 04/02/2017 1:46 PM | | | [...] + + + + | Weight | 78 kg (172 lb) | 04/02/2017 1:46 PM | | | | | PDT | | + + + + + | Height | 190.5 cm (6' 3") | 04/02/2017 1:46 PM | | | | | PDT | | + + + + + | Body Mass Index | 21.5 | 04/02/2017 1:46 PM | | | | | PDT | | + + + + + documented in this encounter Progress Notes Lobo Jeffers MD - 04/02/2017 2:55 PM PDTDiagnosis: AML s/p bone marrow transplant AVN bilateral hips Left hip pain Procedure: Left total hip arthroplasty 09/07/16 History: Khurram returns to clinic for a follow-up visit. He reports no new issues with his left hi p. He is able to ambulate with the left hip reasonably well. He describes having very minima l pain. He feels his range of motion is good. The primary reason for his visit today is the right hip. He stepped down hard off a deck and reports having some acute pain. He was very s ore the next day. The pain has gotten bad enough that he is returned to using a cane. He is requiring some pain medication. He has not noticed any catching sensations. He reports the p ain is localized directly in his groin. The pain seems to be activity related. Review of systems: No new pulmonary or neurologic complaints. Exam: The right hip is normal overall profile. There are no obvious palpable masses. He has minim al tenderness to palpation over the greater trochanter. He is tender to internal and externa l rotation of the ends of the range of motion. He has approximately 30 of each range. He h as active ankle plantar flexion and dorsiflexion. He has sensation intact on the medial and lateral calf. There is a palpable posterior tibial pulse. Imaging: X-ray demonstrates a left total hip arthroplasty in acceptable position with no evidence of loosening. X-ray demonstrates a right hip with no significant evidence of collapse. There is some mild sclerosis in the femoral head suggesting of AVN. Review of his previous MRI scan demonstrates a large area of AVN of the femoral head in the weightbearing area. Plan: Khurram is now 6 months out from a left total hip arthroplasty. He seems to be doing okay with this. He is now having more pain in his right hip. His imaging studies demonstrated ange t the head is still round. I like to give him a little time of protected weightbearing to se e if he improves. If he does not, he may advance to needing a right total hip arthroplasty. The should try to use a cane in the left hand. He should return to see me in a proximally 3 months. He will need new x-rays, AP pelvis, AP and lateral right hip. As I suspect he will p rogress to needing a total hip arthroplasty I will place a surgical intake and hold it until he notifies us. docum ented in this encounter Plan of Treatment +--------+---------+ [...] 2018 | Visit | Malignancy | [address] [facility] | | | | | | [address] | | | | | | [place], [place] | | | | | | [address] | | | | | | [phone] | | | | | | | [...] + | Arthralgia of hip, unspecified laterality - Primary | + + | Avascular necrosis of bone of right hip (HCC) | + + documented in this encounter
--- OUTSIDE RECORDS SUMMARY | ~2019-05-17 | XMS | Encounter Summary ---
Demographics + + + | Address | [address] | | | [place] [address] | + + + | Home Phone [...] Team Providers + +------+ + | Care Box Folding Machine Operator Name | Role | Phone [...] | | | | [address] | [place], [place] | | | | | [address] | [address] | | | | | [address] Mailcode: | [phone] | | | | | [facility] [address] | | | | | | [place], | | | | | | [place] [address] | | | | | | [phone] | | | +--------+ + + + [...] | 2019 | Visit | Malignancy | [address] | | | | | | [address] | | | | | | [place], [place] | | | | | | [address] | | | | | | [phone] | | | | | | | | +--------+---------+ + + + documented as of this encounter Visit Diagnoses Not on filedocumented in this encounter"
--- OUTSIDE RECORDS SUMMARY | ~2019-05-17 | XMS | Encounter Summary ---
Demographics + + + | Address | [address] | | | [place] [address] | + + + | Home Phone [...] Team Providers + +------+ + | Care Foreclosure Specialist Name | Role | Phone | + +------+ + | No Pcp Per Patient | PCP | Unavailable | + +------+ + Encounter Details +--------+ + + + + | Date | Type | Department | Care Team | Description | +--------+ + + + + | 04/19/ | [facility] | Center for | Aspen Cummins FNP | ursodiol | | 2017 | Encounter | Hematologic | [address] | | | | | Malignancies at | [address] | | | | | [address] | [place], [place] | | | | | [address] | [address] | | | | | [address] Mailcode: | [phone] | | | | | [facility] [address] | | | | | | [place], | | | | | | [place] [address] | | | | | | [phone] | | | +--------+ + + + [...] [place] | | | | | | [address] | | | | | | [phone] | | | | | | | | +--------+---------+ + + + documented as of this encounter Visit Diagnoses Not on filedocumented in this encounter"
--- OUTSIDE RECORDS SUMMARY | ~2019-05-17 | XMS | Encounter Summary ---
Demographics + + + | Address | [address] | | | [place] [address] | + + + | Home Phone [...] Team Providers + +------+ + | Care Member Of The Legislative Assembly Name | Role | Phone | + +------+ + | No Pcp Per Patient | PCP | Unavailable | + +------+ + Reason for Visit + + + | Reason | Comments | + + + | Vaccination | | + + + Office Visit [...] ic leukemia, | [address] | | | | | not having | [address] | Mailcode: | | | | | achieved | [place], [place] | [facility] | | | | | remission | [address] | Early | | | | | | Phone: | Pavilion | | | | | Procedures | [phone] | [place], [place] | | | | | Post BMT | Fax: | [address] | | | | | Auth to | [phone] | Phone: | | | | | included | | [phone] | | | | | facility, | | Fax: | | | | | diagnostics, | | [phone] | | | | | office | | | | | | | visits and | | | | | | | surgery | | | +--------+---------+ + + + + Encounter Details +--------+ + + + + | Date | Type | Department | Care Team | Description | +--------+ + + + + | 11/23/ | Clinical | Center for | | Vaccination | | 2017 | Support | Hematologic | | | | | Staff | Malignancies at [facility] | | | | | | [address] | | | | | | [address] Mailcode: | | | | | | [facility] [address] | | | | | | [facility] [place], | | | | | | [place] [address] | | | | | | [phone] | | | +--------+ + + + [...] encounter Progress Notes Mini Disla MA - 11/23/2016 4:30 PM PDTVaccines given by protocol by Mini Disla CMA. Please see MAR for details. documented in this e ncounter Plan of Treatment +--------+---------+ + + + | Date | Type | Specialty | Care Team | Description | +--------+---------+ + + + | 05/19/ | Lab | Phlebotomy | | | | 2019 | | | | | +--------+---------+ + + + | 05/19/ | Office | Hematology | Cook, Yari J, MD | | | 2019 | Visit | Malignancy | [address] [facility] [address] | | | | | | [address] | | | | | | [place], [place] | | | | | | [address] | | | | | | [phone] | | | | | | | | +--------+---------+ + + + documented as of this encounter Procedures + +--------+ + + + | Procedure Name | Priori | Date/Time | Associated Diagnosis | Comments | | | ty | | | | + +--------+ + + + | GUIDELINES FOR | Routin | 11/23/2016 | S/P allogeneic | | | ORDERING #4 - [facility] | e | 10:23 AM | bone marrow | | | | | PDT | transplant (HCC) | | + +--------+ [...] | | | + +--------+ +--------+------+---------+ | diphtheria-acellular | Given | 05/18/20 | 0.5 mL | | Right | | pertussis-tetanus (ADACEL | | 17 11:31 | | | Deltoid | | (booster), Tdap) injection 0.5 mL | | AM PDT | | | | | 0.5 mL, intramuscular, ONCE, 1 | | | | | | | dose, [facility] 11/23/16 at 1030 | | | | | | + +--------+ +--------+------+---------+ +---+---+ | | | +---+---+ + +-------+ +--------+---+---------+ | haemophilus b polysac-tetanus | Given | 11/24/19 | 0.5 mL | | Left | | toxoid (ActHIB) injection 0.5 mL | | 17 11:33 | | | Deltoid | | 0.5 mL, intramuscular, ONCE, 1 | | AM PDT | | | | | dose, [facility] 11/23/16 at 1030 | | | | | | + +-------+ +--------+---+---------+ +---+---+ | | | +---+---+ + +-------+ +------+---+---------+ | hepatitis A-hepatitis B vaccine | Given | 11/24/19 | 1 mL | | Left | | (TWINRIX) injection 1 mL 1 mL, | | 17 11:30 | | | Deltoid | | intramuscular, ONCE, 1 dose, Lupe | | AM PDT | | | | | 11/23/16 at 1030 | | | | | | + +-------+ +------+---+---------+ +---+---+ | | | +---+---+ + +-------+ +--------+---+---------+ | human papillomavirus vaccine | Given | 11/24/19 | 0.5 mL | | Left | | (GARDASIL) injection 0.5 mL 0.5 | | 17 11:29 | | | Deltoid | | mL, intramuscular, ONCE, 1 dose, | | AM PDT | | | | | Lupe 11/23/16 at 1030 | | | | | | + +-------+ +--------+---+---------+ +---+---+ | | | +---+---+ + +-------+ +--------+---+---------+ | meningococcal group B vaccine | Given | 11/24/19 | 0.5 mL | | Left | | (BEXSERO) injection 0.5 mL 0.5 | | 17 11:35 | | | Deltoid | | mL, intramuscular, ONCE, 1 dose, | | AM PDT | | | | | Lupe 11/23/16 at 1030 | | | | | | + +-------+ +--------+---+---------+ +---+---+ | | | +---+---+ + +-------+ +--------+---+---------+ | meningococcal | Given | 11/24/19 | 0.5 mL | | Right | | polysaccharide-dipheria toxoid | | 17 11:35 | | | Deltoid | | conjugate vaccine (MENACTRA) | | AM PDT | | | | | injection 0.5 mL 0.5 mL, | | | | | | | intramuscular, ONCE, 1 dose, Lupe | | | | | | | 11/23/16 at 1030 | | | | | | + +-------+ +--------+---+---------+ +---+---+ | | | +---+---+ + +-------+ +--------+---+---------+ | pneumococcal (13-dimas) conjugate | Given | 05/18/20 | 0.5 mL | | Right | | vaccine (PREVNAR 13) injection | | 17 11:28 | | | Deltoid | | 0.5 mL 0.5 mL, intramuscular, | | AM PDT | | | | | ONCE, 1 dose, Lupe 11/23/16 at 1030 | | | | | | + +-------+ +--------+---+---------+ +---+---+ | | | +---+---+ + +-------+ +--------+---+--------+ | poliovirus vaccine | Given | 20 | 0.5 mL | | Right | | (inactivated) (IPOL) injection | | 17 11:31 | | | Arm | | 0.5 mL 0.5 mL, subcutaneous, | | AM PDT | | | | | ONCE, 1 dose, Lupe 11/23/16 at 1030 | | | | | | + +-------+ +--------+---+--------+ +---+---+ | | | +---+---+ documented in this encounter"
--- OUTSIDE RECORDS SUMMARY | ~2019-05-17 | XMS | Encounter Summary ---
Demographics + + + | Address | [address] | | | [place] [address] | + + + | Home Phone [...] Team Providers + +------+ + | Care Drill Press Tender Name | Role | Phone | + +------+ + | Pending Pcp Addition | PCP | Unavailable | + +------+ + Reason for Visit + + + | Reason | Comments | + + + | Chemotherapy | | + + + | Lab Draw | | + + + | Dressing change | | + + + Chemotherapy (Routine) [...] | | myelomonocyt | [address] | [place] [address] | | | | | ic leukemia, | [address] | Paulina | | | | | not having | [address] | [address] | | | | | achieved | [facility], [place] | Rd Mailcode: | | | | | remission | [address] | [id number] | | | | | Procedures | Phone: | [place] | | | | | [place] | [phone] | Pavilion | | | | | AZACITIDINE | Fax: | [place], [place] | | | | | INJECTION, 1 | [phone] | [address] | | | | | [place] | | Phone: | | | | | CHM,IV | | [phone] | | | | | INFSN,1 HR | | Fax: | | | | | [place] CH[facility],IV | | [phone] | | | | | INFSN,ADDL | | | | | | | HR Vidaza | | | +--------+---------+ + + + + Encounter Details +--------+ + + + + | Date | Type | Department | Care Team | Description | +--------+ + + + + | 10/31/ | Clinical | Center for | | Chemotherapy; Lab | | 2015 | Support | Hematologic | | Draw; Dressing | | | Staff | Malignancies at [facility] | | change | | | | [address] | | | | | | [place] Mailcode: | | | | | | [id number] [place] | | | | | | [place], | | | | | | [place] [address] | | | | | | [phone] | | | +--------+ + + + [...] + + + | Blood Pressure | 123/84 | 11/01/2015 10:31 AM | | | | | PDT | | + + + + + | Pulse | 71 | 11/01/2015 10:31 AM | | | | | PDT | | + + + + + | Temperature | 36.7 C (98 F) | 11/01/2015 10:31 AM | | | | | PDT | | + + + + + | Respiratory Rate | 16 | 11/01/2015 10:31 AM | | | | | PDT | | + + + + + | Oxygen Saturation | 100% | 11/01/2015 10:31 AM | | | | | PDT | | + + + + + | Inhaled Oxygen | - | - | | | Concentration | | | | + + + + + | Weight | 83.5 kg (184 lb 1.4 | 11/01/2015 10:31 AM | | | | oz) | PDT | | + + + + + | Height | - | - | | + + + + + | Body Mass Index | 23.8 | 08/18/2015 4:35 PM | | | | | PST | | + + + + + documented in this encounter Progress Kezia Iyer RN - 11/01/2015 12:09 PM PDTFormatting of this note might be different from rubia farrell. Chemotherapy Nurse Note Name: Khurram Navaleland Date: 11/01/2015 Physician:[place] Allergies: Khurram is allergic to chlorhexidine towelette. Pre-Chemotherapy Pain Score: Patient reports a pain level of 0 today. Nursing Assessment: Fever: no; Diarrhea: no; SOB / Cough: no; Nausea / Vomiting: no; Anemia / Fatigue: no; Cons tipation: no; Edema: no; S/S Bleeding: no; Mucositis: no; Urinary: no; Neuropathy: no; Rash: yes GVHD? ; Pt reports eating well and drinking at least 2 liters of fluid a day. 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 Good blood return noted. Appropriate waste discarded. Lab s drawn and sent. Neostar pulse flushed with 20 mL NS. Chemotherapy was checked by 2 RNs. Vidaza was infused per chemotherapy protocol and comple edward without adverse event. Positive blood return noted pre, during and post infusion. For infusion details, see MAR. Neostar intact to left anterior chest wall [...] Heparin. Patient tolerated procedure withou t difficulty. Assessment: Tolerated procedure Post - Chemotherapy Pain Score: 0 Pt discharged from clinic. Left clinic Wheelchair accompanied by spouse. Next Appointment in [facility] is on 11/02/15 at 3:20 pm with [facility]. Kezia Chambers RN documented in this encou [...] | Visit | Malignancy | [address] | | | | | | [address] | | | | | | [place], [place] | | | | | | [address] | | | | | | [phone] | | | | | | | | +--------+---------+ + + + documented as of this encounter Procedures + +--------+ + + + | Procedure Name | Priori | Date/Time | Associated Diagnosis | Comments | | | ty | | | | + +--------+ + + + | PROCEED WITH | Routin | 11/01/2015 | Acute myeloid | | | CHEMOTHERAPY | e | 4:48 PM | leukemia (AML), M4 | | | OVERRIDE TREATMENT | | PDT | ([facility])- primary | | | PARAMETERS | | | induction failure | | + +--------+ + + + | BMP + MAG, POC CHM | Routin | 11/01/2015 | S/P allogeneic | Results for this | | | e | 10:46 AM | bone marrow | procedure are in the | | | | PDT | transplant ([facility]) | results section. 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[facility])- primary | | | | | | induction failure | | + +--------+ + + + | CBC+DIFF,POC | Urgent | 11/01/2015 | Acute myeloid | Results for this | | | | 10:46 AM | leukemia (AML), M4 | procedure are in the | | | | PDT | ([facility])- primary | results section. | | | | | induction failure | | + +--------+ + + + | CMV PCR | Routin | 11/01/2015 | S/P allogeneic | Results for this | | QUANTITATION, PLASMA | e | 10:25 AM | bone marrow | procedure are in the | | | | PDT | transplant ([facility]) | results section. 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[facility])- primary | | | | | | induction failure | | + +--------+ + + + | TACROLIMUS, WHOLE | Routin | 11/01/2015 | S/P allogeneic | Results for this | | BLOOD | e | 10:25 AM | bone marrow | procedure are in the | | | | PDT | transplant ([facility]) | results section. 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[facility])- primary | | | | | | induction failure | | + +--------+ + + + | IGG, SERUM | Routin | 11/01/2015 | S/P allogeneic | Results for this | | | e | 10:25 AM | bone marrow | procedure are in the | | | | PDT | transplant ([facility]) | results section. 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[facility])- primary | | | | | | induction failure | | + +--------+ + + + | ASPERGILLUS | Routin | 11/01/2015 | S/P allogeneic | Results for this | | GALACTOMANNAN | e | 10:25 AM | bone marrow | procedure are in the | | ANTIGEN, SERUM | | PDT | transplant (HCC) | results section. 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 | | + +--------+ + + + | TREATMENT PARAMETERS | Routin | 11/01/2015 | 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 | 10:24 AM | leukemia (AML), 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 | | | | | | induction failure | | + +--------+ + + + | TREATMENT PARAMETERS | Routin | 11/01/2015 | 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 | 10:24 AM | leukemia (AML), 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 | | | | | | induction failure | | + +--------+ + + + | TREATMENT PARAMETERS | Routin | 11/01/2015 | 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 | 10:24 AM | leukemia (AML), 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 | | | | | | induction failure | | + +--------+ + + + | TREATMENT PARAMETERS | Routin | 11/01/2015 | 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 | 10:24 AM | leukemia (AML), 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 | | | | | | induction failure | | + +--------+ + + + | TREATMENT PARAMETERS | Routin | 11/01/2015 | 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 | 10:24 AM | leukemia (AML), 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 | | | | | | induction failure | | + +--------+ + + + | NURSING | Routin | 11/01/2015 | Acute myeloid | | | COMMUNICATION #3 - | e | 10:24 AM | leukemia (AML), M4 | | | [facility] | | PDT | ([facility])- primary | | | | | | induction failure | | + +--------+ + + + | NURSING | Routin | 11/01/2015 | Acute myeloid | | | COMMUNICATION #2 - | e | 10:24 AM | leukemia (AML), M4 | | | [facility] | | PDT | ([facility])- primary | | | | | | induction failure | | + +--------+ + + + | NURSING | Routin | 11/01/2015 | Acute myeloid | | | COMMUNICATION #1 - | e | 10:24 AM | leukemia (AML), M4 | | | [facility] | | PDT | ([facility])- primary | | | | | | induction failure | | + +--------+ + + + | TREATMENT PARAMETERS | Routin | 11/01/2015 | Acute myeloid | | | #1 - [place]ON | e | 10:24 AM | leukemia (AML), M4 | | | | | PDT | ([facility])- primary | | | | | | induction failure | | + +--------+ + + + | TREATMENT PARAMETERS | Routin | 11/01/2015 | Acute myeloid | | | #1 - BE[place]ON | e | 10:24 AM | leukemia (AML), M4 | | | | | PDT | ([facility])- primary | | | | | | induction failure | | + +--------+ + + + | COMPLETE METABOLIC | Urgent | 11/01/2015 | Acute myeloid | Results for this | | SET | | 10:23 AM | leukemia (AML), M4 | procedure are in the | | (NA,K,CL,CO2,BUN,CRE | | PDT | ([facility])- primary | results section. | | AT,GLUC,CA,AST,ALT,B | | | induction failure | | | YUN TOTAL,ALK | | | | | | PHOS,ALB,PROT TOTAL) | | | | | + +--------+ + + + | TREATMENT PARAMETERS | Routin | 11/01/2015 | Acute myeloid | | | #1 - BE[place]ON | e | 10:22 AM | leukemia (AML), M4 | | | | | PDT | ([facility])- primary | | | | | | induction failure | | + +--------+ + + + documented in this encounter Results BMP + MAG, POC CHM (11/01/2015 10:46 AM PDT) + +---------+ + + + [...] +---------+ + + + | GLUCOSE, | 94 [...] [facility] | [address] | [place], [place] | | | [address] | [facility] | [address] | | | TESTS | | | | + + + + + CBC+PHIL GRIJALVA (11/01/2015 10:46 AM PDT) + + + + + + | Component | Value | Ref Range | Performed | Pathologist | | | | | At | Signature | + + + + + + | WBC POC | 9.2 | 4.4 - 11.0 | [facility] - | | | | | 10*3/uL | [facility] | | | | | | RUTHIE CARTER | | | | | | OF CARE | | | | | | TESTS | | + + + + + + | RBC POC | 3.49 (L) | 4.50 - 6.00 | [facility] - | | | | | 10*6/uL | [facility] | | | | | | RUTHIE CARTER | | | | | | OF CARE | | | | | | TESTS | | + + + + + + | HGB POC | 11.8 (L) | 13.5 - 17.5 | [facility] - | | | | | g/dL | [facility] | | | | | | [facility], POINT | | | | | | OF CARE | | | | | | TESTS | | + + + + + + | HCT POC | 35.0 (L) | 41.0 - 53.0 % | [facility] - | | | | | | [place] | | | | | | [facility], POINT | | | | | | OF CARE | | | | | | TESTS | | + + + + + + | MCV POC | 100.3 (H) | 80.0 - 96.0 fL | [facility] - | | | | | | [place] | | | | | | [facility], POINT | | | | | | OF CARE | | | | | | TESTS | | + + + + + + | MCH POC | 33.8 (H) | 28.5 - 32.3 pg | [facility] - | | | | | | [place] | | | | | | [facility], POINT | | | | | | OF CARE | | | | | | TESTS | | + + + + + + | MCHC POC | 33.7 | 33.0 - 35.5 | [facility] - | | | | | g/dL | [facility] | | | | | | RUTHIE CARTER | | | | | | OF CARE | | | | | | TESTS | | + + + + + + | RDW SD, POC | 63.0 (H) | 35.1 - 46.3 fL | [facility] | | | | | | [place] | | | | | | RUTHIE CARTER | | | | | | OF CARE | | | | | | TESTS | | + + + + + + | PLT POC | 87 (L) | 150 - 400 | [facility] [...] + + + + | NEUTROPHIL% | 59.9 | 50.0 - 70.0 % | [facility] - | | | POC | | | [place] | | | | | | [facility], POINT | | | | | | OF CARE | | | | | | TESTS | | + + + + + + | LYMPH% POC | 31.8 | 18 - 42 % | [facility] - | | | | | | [place] | | | | | | [facility], POINT | | | | | | OF CARE | | | | | | TESTS | | + + + + + + | MONO %, POC | 6.4 | 3.5 - 9.0 % [...] + + + + | NEUTROPHIL# | 5.5 | 1.8 - 7.7 | [facility] - | | | POC | | 10*3/uL | [facility] | | | | | | [facility] POINT | | | | | | OF CARE | | | | | | TESTS | | + + + + + + | LYMPH# POC | 2.9 | 1.0 - 4.8 | [facility] - [...] | | | COMMENT, | | | [facility] | | | POC | | | [...] [facility] | [address] | [place], [place] | | | RUTHIE CARTER [address] | [address] | [address] | | | TESTS | | | | + + + + + IGG, SERUM (11/01/2015 10:25 AM PDT) + +---------+ + + + | Component | Value | Ref Range | Performed | Pathologist | | | | | At | Signature | + +---------+ + + + | IGG SERUM | 480 (L) | 700 - 1600 | [facility] [...] + + + + + | [facility] - | [address] | [place] [address] | | | [place] | | | | + + + + + ASPERGILLUS GALACTOMANNAN ANTIGEN, SERUM (11/01/2015 10:25 AM PDT) + + + + + [...] + + + | ASP GAL | 0.20 | <=0.49 Index | [facility] | | [...] | + + + + + | [facility] | [address] | [place] [address] | | | SERVICES, SPECIAL | [address] | | | | IMM + COAG | | | | + + + + + CMV PCR QUANTITATION, PLASMA (11/01/2015 10:25 AM PDT) + +---------+ + + + | Component | Value | Ref Range | Performed | Pathologist | | | | | At | Signature | + +---------+ + + + | CMV DNA | 440 (H) | None IU/mL | [facility] | | | QUANTITATIO | | | DIAGNOSTIC | | | N BY PCR | | | | | | VALUE, | | | LABORATORIE | | | PLASMA | | | S | | + +---------+ + + + + + | Specimen | + + | Blood - Blood | | (substance) | + + + + + | Narrative | Performed At | + + + | Changes in viral load of less than 2 fold may not reflect true | [facility] | | biological changes and must [...] | | | characteristics determined by the [facility] | | | [facility] Diagnostic Center. It has not been cleared or approved by | | | the Food and Drug Administration. FDA approval is not required for | | | clinical use of this test, and therefore validation was done as | | | required under the requirements of the Clinical Laboratory Improvement | | | Act of 1988. The [facility] | | | Diagnostic Center is a fully licensed and/or accredited clinical | | | laboratory under CLIA, CAP, and the [facility]. | | + + + + + + + + | Performing | Address | City/State/Zipcode | Phone Number | | Organization | | | | + + + + + | [facility] | [email or web address] | [place] [address] | | | DIAGNOSTIC | [address] | | | | LABORATORIES | | | | + + + + + TACROLIMUS, WHOLE BLOOD (11/01/2015 10:25 AM PDT) + +-------+ + + + | Component | Value | Ref Range | Performed | Pathologist | | | | | At | Signature | + +-------+ + + + | TACROLIMUS | 5.5 | 5.0 - 15.0 | [facility] | [...] | + + + + + | [facility] | [address] | [place] [address] | | | SERVICES, SPECIAL | [address] | | | | IMM + COAG | | | | + + + + + COMPLETE METABOLIC SET (NA,K,CL,CO2,BUN,CREAT,GLUC,CA,AST,ALT,BILI TOTAL,ALK PHOS,ALB,PROT TOTAL) (11/01/2015 10:23 AM PDT) + +---------+ + + + | Component | Value | Ref Range | Performed | Pathologist | | | | | At | Signature | + +---------+ + + + | GLUCOSE, | 92 | 60 - 99 mg/dL | [facility] [...] +---------+ + + + | CREATININE | 0.71 | 0.70 - 1.30 | [facility] | | | PLASMA | | mg/dL | LABORATORY | | | (LAB) | | | SERVICES, | | | | | | CORE | | + +---------+ + + + | EGFR | >60 | >60 mL/min | [facility] | | | - | | | LABORATORY | | | PANAMANIAN | | | SERVICES, | | | [...] + | TOTAL CO2, | 26 | 21 - 32 mmol/L | [facility] | | | PLASMA | | | LABORATORY | | | (LAB) | | | SERVICES, | | | | | | CORE | | + +---------+ + + + | CALCIUM, | 9.0 | 8.6 - 10.2 | [facility] | [...] + + + | ALK PHOS | 59 | 53 - 128 U/L | [facility] [...] + + + | ALT (SGPT) | 93 (H) | <=60 U/L | [facility] | | | | | | LABORATORY | | | | | | SERVICES, | | | | | | CORE | | + +---------+ + + + | ANION | 9 | 4 - 11 mmol/L | [facility] [...] + + + | ANION GAP | 9 | mmol/L | [facility] | | | | | | LABORATORY | | | | | | SERVICES, | | | | | | CORE | | + +---------+ + + + + + | Specimen | + + | Blood - Blood | | (substance) | + + + + + | Narrative | Performed At | + + + | Unless within past 72 hours. GFR is estimated using the MDRD | [facility] | | equation recommended by the National Kidney Disease Education Program. | LABORATORY | | Estimated GFR Interpretive Information: <60 mL/min/1.73 sq m | SERVICES, CORE | | Chronic Kidney Disease <15 mL/min/1.73 sq m | | | Kidney Failure Estimated GFR greater that 60 | | | mL/min/1.73 sq m is of limited clinical value. The MDRD equation | | | is not valid in the following situations: - Patients under 18 years | | | of age - Severe malnutrition or obesity - Vegetarian diet - Rapidly | | | changing kidney function | | + + + + + + + + | Performing | Address | City/State/Zipcode | Phone Number | | Organization | | | | + + + + + | [facility] | [address] | [place] [address] | | | SERVICES, CORE | WALLY [...] 65 mg in | New Bag | 11/01/19 | 65 mg | 213 | | | NaCl 0.9 % IV 65 mg (rounded | | 16 12:37 | | mL/hr | | | from 64.64 mg = 32 mg/m2 | | PM PDT | | | | | 2.02 m2 Treatment plan recorded | | | | | | | BSA), intravenous, Administer | | | | | | | over 30 Minutes, ONCE, 1 dose, | | | | | | | 11/01/15 at 1115, HIGH RISK | | | | | | | MEDICATION-CHEMOTHERAPY | | | | | | | Administration must be completed | | | | | | | within 1 hour of preparation., | | | | | | + +---------+ +-------+-------+------+ +---+---+ | | | +---+---+ + +-------+ + +---+---+ | heparin 10 unit/mL IV flush | Given | 11/01/19 | 50 Units | | | | syringe 50 Units 50 Units, | | 16 1:18 | | | | | Intracatheter, NEEDED, | | PM PDT | | | | | Starting Sun11/01/15 at 1026, | | | | | | | Until Sun11/01/15 at 2251, line | | | | | | | patency | | | | | | + +-------+ + +---+---+ +-------+ + +---+---+ | Given | 11/01/19 | 50 Units | | | | | 16 1:17 | | | | | | PM PDT | | | | +-------+ + +---+---+ | Given | 11/01/19 | 50 Units | | | | | 16 1:16 | | | | | | PM PDT | | | | +-------+ + +---+---+ +---+---+ | | | +---+---+ + +-------+ +------+---+---+ | ondansetron (ZOFRAN) tablet 8 | Given | 11/01/19 | 8 mg | | | | mg 8 mg, oral, ONCE, 1 dose, Mon | | 16 11:37 | | | | | 11/01/15 at 1115 | | AM PDT | | | | + +-------+ +------+---+---+ +---+---+ | | | +---+---+ documented in this encounter"
--- OUTSIDE RECORDS SUMMARY | ~2019-05-17 | XMS | Encounter Summary ---
Demographics + + + | Address | [address] | | | [place] [address] | + + + | Home Phone | | + + + | Preferred Language | Unknown | + + + | Marital Status | | + + + | Advent Affiliation | SPI | + + + [...] Team Providers + +------+ + | Care Parliamentary Librarian Name | Role | Phone | [...] | | | | | | [place], | | | | | | | [place] | | | | | | | [address] | | | | | | | Phone: | | | | | | | [phone] | | | | | | | Fax: | | | | | | | [phone] | +--------+--------+ + + + + Encounter Details +--------+ + + + + | Date | Type | Department | Care Team | Description | +--------+ + + + + | 02/27/ | Clinical | Center for | | Lab Draw | | 2016 | Support | Hematologic | | | | | Staff | Malignancies at [facility] | | | | | | [address] | | | | | | Debi Burger Mailcode: | | | | | | [id number] | | | | | | [place], | | | | | | [place] [address] | | | | | | [phone] | | | +--------+ + + + [...] encounter Progress Notes Cherri Winters RN - 02/28/2016 11:21 AM PDTPt denies fevers, chills, sob, n/v, diarrhea, a nd constipation. Pt states he is eating and drinking well. Neostar accessed per protocol. Good blood return noted. Appropriate waste discarded. Lab s drawn and sent. Neostar pulse flushed with 20 mL NS. Patient scheduled for provider visi t today with ORLY Yanes. documented in this enc ounter Plan of [...] [address]rera | | | | | | [place], [place] | | | | | | [address] | | | | | | [phone] | | | | | | | | +--------+---------+ + + + documented as of this encounter Procedures + +--------+ + + + | Procedure Name | Priori | Date/Time | Associated Diagnosis | Comments | | | ty | | | | + +--------+ + + + | BMP + MAG, POC CHM | Routin | 02/28/2016 | S/P allogeneic | Results for this | | | e | 9:59 AM | bone marrow | procedure are in the | | | | PDT | transplant (HCC) | results section. 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[facility])- primary | | | | | | induction failure | | + +--------+ + + + | CBC+DIFF,POC | Routin | 02/28/2016 | S/P allogeneic | Results for this | | | e | 9:59 AM | bone marrow | procedure are [...] + | CMV PCR | Routin | 02/28/2016 | S/P allogeneic | Results for this [...] + | LIVER SET | Urgent | 02/28/2016 | S/P allogeneic | Results for this [...] encounter Results BMP + MAG, POC CHM (02/28/2016 9:59 AM PDT) + +---------+ + + + [...] +---------+ + + + | GLUCOSE, | 132 (H) | 60 - 99 mg/dL | [...] + + + | LDH, POC | 379 (H) | 0 - 206 U/L | [...] [facility] | [address] | [place], [place] | | | RUTHIE CARTER [address] | [address] | [address] | | | TESTS | | | | + + + + + CBC+DIFFPOC (02/28/2016 9:59 AM PDT) + + + + + + | Component | Value | Ref Range | Performed | Pathologist | | | | | At | Signature | + + + + + + | WBC POC | 11.6 (H) | 4.4 - 11.0 | [facility] - | | | | | 10*3/uL | [facility] | | | | | | [facility] POINT | | | | | | OF CARE | | | | | | TESTS | | + + + + + + | RBC POC | 3.20 (L) | 4.50 - 6.00 | [facility] - | | | | | 10*6/uL | [facility] | | | | | | [facility] POINT | | | | | | OF CARE | | | | | | TESTS | | + + + + + + | HGB POC | 11.3 (L) | 13.5 - 17.5 | [facility] - | | | | | g/dL | [facility] | | | | | | [facility] POINT | | | | | | OF CARE | | | | | | TESTS | | + + + + + + | HCT POC | 34.9 (L) | 41.0 - 53.0 % | [facility] - | | | | | | [place] | | | | | | RUTHIE CARTER | | | | | | OF CARE | | | | | | TESTS | | + + + + + + | MCV POC | 109.1 (H) | 80.0 - 96.0 fL | [facility] - | | | | | | [place] | | | | | | [facility] POINT | | | | | | OF CARE | | | | | | TESTS | | + + + + + + | MCH POC | 35.3 (H) | 28.5 - 32.3 pg | [facility] - | | | | | | [place] | | | | | | [facility] POINT | | | | | | OF CARE | | | | | | TESTS | | + + + + + + | MCHC POC | 32.4 | 33.0 - 35.5 | [facility] - | | | | | g/dL | [facility] | | | | | | [facility], POINT | | | | | | OF CARE | | | | | | TESTS | | + + + + + + | RDW SD, POC | 52.9 (H) | 35.1 - 46.3 fL | [facility] - | | | | | | [place] | | | | | | [facility] POINT | | | | | | OF CARE | | | | | | TESTS | | + + + + + + | PLT POC | 145 (L) | 150 - 400 | [facility] [...] + + + + | NEUTROPHIL% | 74.6 (H) | 50.0 - 70.0 % | [facility] - | | | POC | | | [place] | | | | | | [facility] POINT | | | | | | OF CARE | | | | | | TESTS | | + + + + + + | LYMPH% POC | 15.9 (L) | 18 - 42 % | [...] + + | EOS %, POC | 3.3 (H) | 1.0 - 3.0 % | [...] + + + + | NEUTROPHIL# | 8.6 (H) | 1.8 - 7.7 | [facility] [...] [facility] | [address] | [place], [place] | | | RUTHIE CARTER [facility] | [address] | [id number] | | | TESTS | | | | + + + + + LIVER SET (AST,ALT,BILI TOTAL,BILI DIRECT,ALK PHOS,ALB,PROT TOTAL) (02/28/2016 9:40 AM PDT ) + +---------+ + [...] + + + | ALK PHOS | 97 | 53 - 128 U/L | [facility] | | | | | | LABORATORY | | | | | | SERVICES, | | | | | | CORE | | + +---------+ + + + | AST(SGOT) | 81 (H) | <=41 U/L | [facility] | | | | | | LABORATORY | | | | | | SERVICES, | | | | | | CORE | | + +---------+ + + + | ALT (SGPT) | 200 (H) | <=60 U/L | [facility] | | | | | | LABORATORY | | | | | | SERVICES, | | | | | | CORE | | + +---------+ + + + | TOTAL | 6.2 (L) | 6.4 - 8.2 g/dL | [...] | + + + + + | [facility] | [address] | [place] [address] | | | SERVICES, CORE | [address] | | | + + + + + CMV PCR QUANTITATION, PLASMA (02/28/2016 9:40 AM PDT) + + + + [...] | | | characteristics determined by the [facility] | | | [facility]. It has not been cleared or approved by | | | the Food and Drug Administration. FDA approval is not required for | | | clinical use of this test, and therefore validation was done as | | | required under the requirements of the Clinical Laboratory Improvement | | | Act of 1988. The [facility] | | | Diagnostic Center is a fully licensed and/or accredited clinical | | | laboratory under CLIA, CAP, and the [facility]. | | + + + + + + + + | Performing | Address | City/State/Zipcode | Phone Number | | Organization | | | | + + + + + | [facility] | [address] | [place] [address] | | | DIAGNOSTIC | [address] [...]
--- OUTSIDE RECORDS SUMMARY | ~2019-05-17 | XMS | Encounter Summary ---
Demographics + + + | Address | [address] | | | [place] [address] | + + + | Home Phone [...] Team Providers + +------+ + | Care [employer] Psychologist Name | Role | Phone | + +------+ + | Zayda Hinton | PCP | | + +------+ + Encounter Details +--------+ + + + + | Date | Type | Department | Care Team | Description | +--------+ + + + + | 12/22/ | Pharmacy | Specialty Pharmacy | | | | 2015 | Visit | Services [address] | | | | | | [address] | | | | | | [place], [place] | | | | | | [address] | | | | | | [phone] | | | +--------+ + + + [...] Hospital | | | | | | [address] | | | | | | [place], [place] | | | | | | [address] | | | | | | [phone] | | | | | | | | +--------+---------+ + + + documented as of this encounter Visit Diagnoses Not on filedocumented in this encounter"
--- OUTSIDE RECORDS SUMMARY | ~2019-05-17 | XMS | Encounter Summary ---
Demographics + + + | Address | [address] | | | [place] [address] | + + + | Home Phone [...] Providers + +------+ + | Care Manager Food Name | Role | Phone | + [...] Debi Burger | | | | | Christian Barry | [place], [place] | | | | | [address] | [address] | | | | | Debi Burger Mailcode: | [phone] | | | | | [id number] | | | | | | [place], | | | | | | [place] [address] | | | | | | [phone] | | | +--------+--------+ + + + [...] Rd | | | | | | [place] | | | | | | [address] | | | | | | [phone] | | | | | | | | +--------+---------+ + + + documented as of this encounter Visit Diagnoses Not on filedocumented in this encounter"
--- OUTSIDE RECORDS SUMMARY | ~2019-05-17 | XMS | Encounter Summary ---
Demographics + + + | Address | [address] | | | [place] [address] | + + + | Home Phone | | + + + | Preferred Language | Unknown | + + + | Marital Status | | + + + | Muslim Affiliation | SPI | + + + [...] Providers + +------+ + | Care Freight Booker Name | Role | Phone | [...] Barry | | | | | | [address] | | | | | | Wally Burger Mailcode: | | | | | | [address] | | | | | | [place], | | | | | | [place] [address] | | | | | | [phone] | | | +--------+ + + + [...] Rd | | | | | | [place], [place] | | | | | | [address] | | | | | | [phone] | | | | | | | [...] | RECONSTITUTION/ACTIV | | PST | transplant ([facility]) | | | ATE)BLOOD | | | | | + +--------+ + + + | RBC MORPHOLOGY | Routin | 07/19/2017 | S/P allogeneic | Results for this | | | e | 9:24 AM | bone marrow | procedure are in the | | | | PST | transplant ([facility]) | results section. | + +--------+ + + + | CBC AND AUTO DIFF | Urgent | 07/19/2017 | S/P allogeneic | Results for this | | | | 9:24 AM | bone marrow | procedure are in the | | | | PST | transplant ([facility]) | results section. | + +--------+ + + + | MANUAL DIFFERENTIAL | Routin | 07/19/2017 | S/P allogeneic | Results for this | | | e | 9:24 AM | bone marrow | procedure are in the | | | | PST | transplant ([facility]) | results section. | + +--------+ + + + | LYMPHOCYTE | Routin | 07/19/2017 | S/P allogeneic | Results for this | | ACTIVATION(LYMPH | e | 9:24 AM | bone marrow | procedure are in the | | RECONSTITUTION/ACTIV | | PST | transplant ([facility]) | results section. | | ATE),BLOOD | | | | | + +--------+ + + + | CBC, WITH | Urgent | 07/19/2017 | S/P allogeneic | Results for this | | DIFFERENTIAL | | 9:24 AM | bone marrow | procedure are in the | | | | PST | transplant ([facility]) | results section. | + +--------+ + + + | VITAMIN D, | Routin | 07/19/2017 | S/P allogeneic | Results for this | | 25-HYDROXY, SERUM | e | 9:24 AM | bone marrow | procedure are in the | | | | PST | transplant ([facility]) | results section. | + +--------+ + + + | IGG, SERUM | Routin | 07/19/2017 | S/P allogeneic | Results for this | | | e | 9:24 AM | bone marrow | procedure are in the | | | | PST | transplant ([facility]) | results section. | + +--------+ + + + | FERRITIN | Routin | 07/19/2017 | S/P allogeneic | Results for this | | | e | 9:24 AM | bone marrow | procedure are in the | | | | PST | transplant ([facility]) | results section. | + +--------+ + + + | TSH | Routin | 07/19/2017 | S/P allogeneic | Results for this | | | e | 9:24 AM | bone marrow | procedure are in the | | | | PST | transplant ([facility]) | results section. | + +--------+ [...] - MACARIO | [address] | [place] | | | [facility] | [address] | [address] | | | TESTS | | | [...] | + + + + + | [facility] | [address] | [place] [address] | | | SERVICES, CORE | PARK [...] [facility] | [address] | [place] [address] | | | SERVICES, CORE | WALLY [...] [facility] | [address] | [place] [address] | | | SERVICES, SPECIAL | PARK [...] [facility] | [address] | [place] [address] | | | SERVICES, CORE | WALLY [...] | + + + + + | [facility] | [address] | [place] [address] | | | [place] | | | | + + + [...] [facility] | [address] | [place] [address] | | | SERVICES, CORE | WALLY [...] [facility] | [address] | [place] [address] | | | SERVICES, INDRA | PARK [...] [facility] | [address] | [place] [address] | | | SERVICES, CORE | PARK [...] [facility] | [address] | [place] [address] | | | SERVICES, CORE | PARK [...] [facility] | [address] | [place] [address] | | | SERVICES, CORE | [address] | | | + + + + + documented in this encounter Visit Diagnoses + + | Diagnosis | + + | 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
--- OUTSIDE RECORDS SUMMARY | ~2019-05-17 | XMS | Encounter Summary ---
Demographics + + + | Address | [address] | | | [place] [address] | + + + | Home Phone [...] Providers + +------+ + | Care Patient Account Representative Name | Role | Phone | + +------+ + | Zayda Hinton | PCP | | + +------+ + Encounter Details +--------+ + + + + | Date | Type | Department | Care Team | Description | +--------+ + + + + | 11/28/ | Pharmacy | Specialty Pharmacy | | | | 2015 | Visit | Services [address] | | | | | | [address] | | | | | | [place], [place] | | | | | | [address] | | | | | | [phone] | | | +--------+ + + + [...] 2019 | Visit | Malignancy | [address] [facility] | | | | | | [address] | | | | | | [place], [place] | | | | | | [address] | | | | | | [phone] | | | | | | | | +--------+---------+ + + + documented as of this encounter Visit Diagnoses Not on filedocumented in this encounter"
--- OUTSIDE RECORDS SUMMARY | ~2019-05-17 | XMS | Encounter Summary ---
Demographics + + + | Address | [address] | | | [place] [address] | + + + | Home Phone [...] Team Providers + +------+ + | Care Professional Caster Name | Role | Phone | + +------+ + | Pending Pcp Addition | PCP | Unavailable | + +------+ + Reason for Visit + + + | Reason | Comments | + + + | Lab Draw | PICC | + + + | Transfusion | Platelet transfusion x 2 | + + + Benefits Check (Routine) [...] | | | | | [address] | | | | | | | J[place]ier Carrera | | | | | | | [place], | | | | | | | [place] | | | | | | | [address] | | | | | | | Phone: | | | | | | | [phone] | | | | | | | Fax: | | | | | | | [phone] | +--------+--------+ + + + + Encounter Details +--------+ + + + + | Date | Type | Department | Care Team | Description | +--------+ + + + + | 08/17/ | Clinical | [facility] | | Lab Draw (PICC); | | 2015 | Support | Hematologic | | Transfusion | | | Staff | [facility] | | (Platelet | | | | [address] | | transfusion x 2) | | | | Wally Burger Mailcode: | | | | | | [id number] | | | | | | [facility] [place], | | | | | | [place] [address] | | | | | | [phone] | | | +--------+ + + + [...] + + + | Blood Pressure | 114/65 | 08/17/2015 7:15 PM | | | | | PST | | + + + + + | Pulse | 55 | 08/17/2015 7:15 PM | | | | | PST | | + + + + + | Temperature | 36.6 C (97.9 F) | 08/17/2015 7:15 PM | | | | | PST | | + + + + + | Respiratory Rate | 16 | 08/17/2015 7:15 PM | | | | | PST | | + + + + + | Oxygen Saturation | 99% | 08/17/2015 3:28 PM | | | | | PST | | + + + + + | Inhaled Oxygen | - | - | | | Concentration | | | | + + + + + | Weight | 81.6 kg (179 lb 14.3 | 08/17/2015 3:28 PM | | | | oz) | PST | | + + + + + | Height | - | - | | + + + + + | Body Mass Index | 22.79 | 07/15/2015 1:57 PM | | | | | PST | | + + + + + documented in this encounter Progress Notes Mirza Carlin RN - 08/17/2015 7:22 PM PSTPt's care transferred at 19:05 - Pt's RN stat ed that the dressing is not changed today as PICC will be DC'ed tomorrow. Plt completed without adverse reaction. Pt denied itching, hives, CP, back pain, or SOB. 15 min post plt count lab drawn 2 19:30 and Pt DC home as instructed. Dressing CDI. Pt stated understanding to practice low blood count precautions and call the clinic if feve r, chills, bleeding, or any concerns. Stable with ambulation and DC home with family - Air Bag Buffer. Seble Godoy RN - 6:45 PM PST Samantha Peck RN - 016 4:32 PM PST Patient ambulatory to infusion room accompanied by his . Kermit Kelly is a [address] Garcia with a h/o AML. He has previously received induction with 7+3, reinduct ion with HAM and then one cycle of Decitibine. He is scheduled to be admitted tomorrow for c entral line placement and an URD PBSCT, day 0 scheduled for 08/16/15. Patient reports generall y feeling well. He reports some fatigue this afternoon but has been active today. He denies any fever, chills, dizziness, pain, N/T to hands or feet, SOB/cough or s/s of bleeding. Anabel ent reports that he did have some nausea today and took Zofran. He denies emesis and reports that nausea has improved. Patient denies any other complaints or concerns at this time. Katty garcia is in clinic today for lab draw and possible blood product transfusion. PICC accessed per protocol. Good blood return noted. Appropriate waste discarded. Labs d rawn and sent. PICC pulse flushed with 20 mL NS. Dressing is C/D/I and occlusive. It is du e to be changed today but patient is having line removed tomorrow after he has a central gurpreet e placed. Lab Results Component Value Date PLT 19 08/17/2015 Orders to transfuse platelet product for a [...] reviewed by me. For transfusion details, se e ONC Lines & Transfusions doc flowsheet. Lab Results Component Value Date PLT 32 08/17/2015 Orders to transfuse platelet product for a post-platelet count today as above. Each unit wa s checked by two RNs to confirm the unit number, ABO and Rh type printed on tag matched info rmation on blood bag and to confirm crossmatch compatibility. At the bedside, two RNs verif ied the correct patient using two unique identifiers, confirmed the unit number, ABO and Rh type printed on tag matched the information on blood bag and confirmed crossmatch compatibil ity. Informed consent was verified. The patient was not re-premedicated. He received 1 unit of platelets per Provider s orde rs. Transfusion was tolerated well without complication. Frequent vital signs were monitor ed throughout the transfusion and reviewed by me. For transfusion details, see ONC Lines & Transfusions doc flowsheet. Hct of 20.4 on labs today. Due to time constraints patient will receive PRBC unit inpatient tomorrow. Type and Cross was done 08/16/15 and a unit is ready for patient in blood bank. At 1830 report was given to Kieran Camilo RN and care transferred. documented in this encounter Plan of Treatment [...] [address] | | | | | | [place], [place] | | | | | | [address] | | | | | | [phone] | | | | | | | | +--------+---------+ + + + + +------+--------+ + + | Name | Type | Priori | Associated Diagnoses | Order Schedule | | | | ty | | | + +------+--------+ + + | TYPE AND SCREEN | Lab | Routin | Acute myeloid | Ordered: 08/17/2015 | | | | e | leukemia (AML), 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) | | + +------+--------+ + + | TYPE AND SCREEN | Lab | Urgent | Acute myeloid | Ordered: 08/17/2015 | | | | | leukemia (AML), 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) | | + +------+--------+ + + documented as of this encounter Procedures + +--------+ + + + | Procedure Name | Priori | Date/Time | Associated Diagnosis | Comments | | | ty | | | | + +--------+ + + + | PROCEDURE NOTE | Routin | 08/19/2015 | | Results for this | | | e | 8:47 AM | | procedure are in the | | | | PST | | results section. | + +--------+ + + + | PLATELET COUNT, | Routin | 08/17/2015 | Acute myeloid | Results for this | | WHOLE BLOOD | e | 6:22 PM | leukemia (AML), M4 | procedure are in the | | | | PST | ([facility]) | results section. | + +--------+ + + + | CBC+DIFF,POC | Routin | 08/17/2015 | Acute myeloid | Results for this | | | e | 5:49 PM | leukemia (AML), M4 | procedure are in the | | | | PST | ([facility]) | results section. | + +--------+ + + + | PRODUCT - PLATELET | Routin | 08/17/2015 | Acute myeloid | Results for this | | PHERESIS | e | 3:52 PM | leukemia (AML), M4 | procedure are in the | | LEUKOREDUCED | | PST | ([facility]) | results section. | + +--------+ + + + | PRODUCT - RED CELLS | Routin | 08/17/2015 | Acute myeloid | Results for this | | LEUKOREDUCED | e | 3:47 PM | leukemia (AML), M4 | procedure are in the | | | | PST | ([facility]) | results section. | + +--------+ + + + | CBC+DIFF,POC | Routin | 08/17/2015 | Acute myeloid | Results for this | | | e | 3:43 PM | leukemia (AML), M4 | procedure are in the | | | | PST | ([facility]) | results section. | + +--------+ + + + | PRODUCT - PLATELET | Routin | 08/17/2015 | Acute myeloid | Results for this | | PHERESIS | e | 3:42 PM | leukemia (AML), M4 | procedure are in the | | LEUKOREDUCED | | PST | ([facility]) | results section. | + +--------+ + + + | CMP, POC (BMP+LFT) | Routin | 08/17/2015 | Acute myeloid | Results for this | | | e | 3:39 PM | leukemia (AML), M4 | procedure are in the | | | | PST | ([facility]) | results section. | + +--------+ + + + | LDH TOTAL, PLASMA | Routin | 08/17/2015 | Acute myeloid | Results for this | | | e | 3:20 PM | leukemia (AML), M4 | procedure are in the | | | | PST | ([facility]) | results section. | + +--------+ + + + | TREATMENT PARAMETERS | Routin | 08/17/2015 | 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 | 3:16 PM | leukemia (AML), M4 | | | | | PST | ([facility]) | | + +--------+ + + + | TREATMENT PARAMETERS | Routin | 08/17/2015 | 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 | 3:16 PM | leukemia (AML), M4 | | | | | PST | (HCC) | | + +--------+ + + + | TREATMENT PARAMETERS | Routin | 08/17/2015 | 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 | 3:16 PM | leukemia (AML), M4 | | | | | PST | (HCC) | | + +--------+ + + + | TREATMENT PARAMETERS | Routin | 08/17/2015 | 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 | 3:16 PM | leukemia (AML), M4 | | | | | PST | (HCC) | | + +--------+ + + + | TREATMENT PARAMETERS | Routin | 08/17/2015 | 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 | 3:16 PM | leukemia (AML), M4 | | | | | PST | ([facility]) | | + +--------+ + + + | NURSING | Routin | 08/17/2015 | Acute myeloid | | | COMMUNICATION #3 - | e | 3:16 PM | leukemia (AML), M4 | | | [facility] | | PST | ([facility]) | | + +--------+ + + + | NURSING | Routin | 08/17/2015 | Acute myeloid | | | COMMUNICATION #2 - | e | 3:16 PM | leukemia (AML), M4 | | | [facility] | | PST | ([facility]) | | + +--------+ + + + | NURSING | Routin | 08/17/2015 | Acute myeloid | | | COMMUNICATION #1 - | e | 3:16 PM | leukemia (AML), M4 | | | [facility] | | PST | ([facility]) | | + +--------+ + + + | TREATMENT PARAMETERS | Routin | 08/17/2015 | Acute myeloid | | | #1 - [facility] | e | 3:16 PM | leukemia (AML), M4 | | | | | PST | (HCC) | | + +--------+ + + + | TREATMENT PARAMETERS | Routin | 08/17/2015 | Acute myeloid | | | #1 - [facility] | e | 3:16 PM | leukemia (AML), M4 | | | | | PST | (HCC) | | + +--------+ + + + documented in this encounter Results PROCEDURE NOTE (08/19/2015 8:47 AM PST)PLATELET COUNT, WHOLE BLOOD (08/17/2015 6:22 PM PS T) + +--------+ + + + | Component | Value | Ref Range | Performed | Pathologist | | | | | At | Signature | + +--------+ + + + | PLATELET | 64 (L) | 150 - 400 K/cu | [facility] | | | COUNT | | mm | LABORATORY | | | | | | SERVICES, | | | | | | CORE | | + +--------+ + + + + + | Specimen | + + | Blood - Blood | | (substance) | + + + + + + + | Performing | Address | City/State/Zipcode | Phone Number | | Organization | | | | + + + + + | [facility] | [address] | [place] [address] | | | SERVICES, CORE | [address] | | | + + + + + CBC+DIFF,POC (08/17/2015 5:49 PM PST) + + + + + + | Component | Value | Ref Range | Performed | Pathologist | | | | | At | Signature | + + + + + + | WBC POC | 1.3 (L) | 4.4 - 11.0 | [facility] - | | | | | 10*3/uL | [place] | | | | | | [facility] | | | | | | OF CARE | | | | | | TESTS | | + + + + + + | RBC POC | 2.55 (L) | 4.50 - 6.00 | [facility] [...] + + + | HCT POC | 19.8 (L) | 41.0 - 53.0 % | [facility] - | | | | | | [place] | | | | | | [facility] | | | | | | OF CARE | | | | | | TESTS | | + + + + + + | MCV POC | 77.6 (L) | 80.0 - 96.0 fL | [facility] - | | | | | | [place] | | | | | | [facility] | | | | | | OF CARE | | | | | | TESTS | | + + + + + + | MCH POC | 27.8 (L) | 28.5 - 32.3 pg | [...] + + | RDW SD, POC | 29.5 (L) | 35.1 - 46.3 fL | [facility] - | | | | | | [place] | | | | | | [facility] | | | | | | OF CARE | | | | | | TESTS | | + + + + + + | PLT POC | 32 (L) | 150 - 400 | [facility] - | | | | | 10*3/uL | [place] | | | | | | [facility] | | | | | | OF CARE | | | | | | TESTS | | + + + + + + | MPV POC | 9.4 (L) | 9.7 - 12.3 fL | [facility] - | | | | | | [place] | | | | | | [facility] | | | | | | OF CARE | | | | | | TESTS | | + + + + + + | NEUTROPHIL% | 7.6 (L) | 50.0 - 70.0 % | [facility] - | | | POC | | | [place] | | | | | | [facility]INT | | | | | | OF CARE | | | | | | TESTS | | + + + + + + | LYMPH% POC | 19.7 | 18 - 42 % | [facility] - | | | | | | [place] | | | | | | [facility] | | | | | | OF CARE | | | | | | TESTS | | + + + + + + | MONO %, POC | 60.6 (H) | 3.5 - 9.0 % | [...] + + | BASO %, POC | 12.1 (H) | 0.0 - 2.0 % | [...] [facility] | | | | | | [facility] | | | | | | OF CARE | | | | | | TESTS | | + + + + + + | BASO #, POC | 0.2 (H) | 0.0 - 0.1 | [facility] - | | | | | 10*3/uL | [facility] | | | | | | [facility] | | | | | | OF CARE | | | | | | TESTS | | + + + + + + | CBC | Leukocytop | | [facility] - | | | [...] + + + | [facility] | [address] | [place], [place] | | | [facility] | [address] | [address] | | | TESTS | | | | + + + + + PRODUCT - PLATELET PHERESIS LEUKOREDUCED (08/17/2015 3:52 PM PST) + + + + + + | Component | Value | Ref Range | Performed | Pathologist | | | | | At | Signature | + + + + + + | PRODUCT | PLATELETS PHERESIS, | | [facility] | | | DESCRIPTION | LEUKOCYTES | | DEPARTMENT | | | | REDUCED,IRRADIATED | | OF | | | | | | PATHOLOGY | | + + + + + + | PRODUCT | [id number] | | [facility] | | | UNIT [...] + + + + | EXPIRATION | [id number] | | [facility] | | | DATE [...] + + + + | BLOOD | [id number] | | [facility] | | | PRODUCT [...] + + + + + | [facility] | [address] | [place] [address] | | | PATHOLOGY | [address] | | | + + + + + PRODUCT - RED CELLS LEUKOREDUCED (08/17/2015 3:47 PM PST) + + + + [...] + + + + | PRODUCT | [id number] | | [facility] | | | UNIT [...] + + + + | EXPIRATION | [id number] | | [facility] | | | DATE [...] + + + + | BLOOD | [id number] | | [facility] | | | PRODUCT [...] + + + + + | [facility] | [address] | [place] [address] | | | PATHOLOGY | [address] | | | + + + + + CBC+DIFF,POC (08/17/2015 3:43 PM PST) + + + + + + | Component | Value | Ref Range | Performed | Pathologist | | | | | At | Signature | + + + + + + | WBC POC | 0.9 (L) | 4.4 - 11.0 | [facility] - | | | | | 10*3/uL | [place] | | | | | | [facility] | | | | | | OF CARE | | | | | | TESTS | | + + + + + + | RBC POC | 2.62 (L) | 4.50 - 6.00 | [facility] [...] + + + | HCT POC | 20.4 (L) | 41.0 - 53.0 % | [facility] - | | | | | | [place] | | | | | | [facility] | | | | | | OF CARE | | | | | | TESTS | | + + + + + + | MCV POC | 77.9 (L) | 80.0 - 96.0 fL | [...] + + + | MCHC POC | 36.8 | 33.0 - 35.5 | [facility] - | | | | | g/dL | [facility] | | | | | | [facility] | | | | | | OF CARE | | | | | | TESTS | | + + + + + + | RDW SD, POC | 29.0 (L) | 35.1 - 46.3 fL | [facility] - | | | | | | [facility] | | | | | | [facility] | | | | | | OF CARE | | | | | | TESTS | | + + + + + + | PLT POC | 19 (L) | 150 - 400 | [facility] - | | | | | 10*3/uL | [facility] | | | | | | [facility] | | | | | | OF CARE | | | | | | TESTS | | + + + + + + | MPV POC | 9.9 | 9.7 - 12.3 fL | [facility] - | | | | | | [facility] | | | | | | [facility] PO[facility] | | | | | | OF CARE | | | | | | TESTS | | + + + + + + | NEUTROPHIL% | 3.2 (L) | 50.0 - 70.0 % | [facility] - | | | POC | | | [facility] | | | | | | [facility] | | | | | | OF CARE | | | | | | TESTS | | + + + + + + | LYMPH% POC | 29.8 | 18 - 42 % | [facility] - | | | | | | [facility] | | | | | | [facility] | | | | | | OF CARE | | | | | | TESTS | | + + + + + + | MONO %, POC | 56.4 (H) | 3.5 - 9.0 [...] + + | BASO %, POC | 10.6 (H) | 0.0 - 2.0 % | [...] + + + + | CBC | Turbid. | | [facility] - | | | [...] [facility] | [address] | [place], [place] | | | [facility] | [facility] | [address] | | | TESTS | | | | + + + + + PRODUCT - PLATELET PHERESIS LEUKOREDUCED (08/17/2015 3:42 PM PST) + + + + [...] + + + + | PRODUCT | [id number] | | [facility] | | | UNIT [...] + + + + | EXPIRATION | [id number] | | [facility] | | | DATE [...] + + + + | BLOOD | [id number] | | [facility] | | | PRODUCT [...] DEPARTMENT OF | [address] | [place] [address] | | | PATHOLOGY | [address] | | | + + + + + CMP METABOL,POC (08/17/2015 3:39 PM PST) + +-------+ + + + [...] +-------+ + + + | POTASSIUM, | 4.3 [...] +-------+ + + + | CHLORIDE, | 104 | 97 - 108 mmol/L | [facility] - | | | POC | | | [facility] | | | | | | [facility] | | | | | | OF CARE | | | | | | TESTS | | + +-------+ + + + | GLUCOSE, | 89 | 60 - 99 mg/dL | [facility] - | | | POC | | | [facility] | | | | | | [facility] | | | | | | OF CARE | | | | | | TESTS | | + +-------+ + + + | CALCIUM | 9.6 [...] +-------+ + + + | CREATININE, | 1.2 | 0.7 - 1.3 mg/dL | [facility] - | | | POC | | | [facility] | | | | | | [facility] | | | | | | OF CARE | | | | | | TESTS | | + +-------+ + + + | ALK PHOS, | 63 | 41 - 99 U/L | [facility] - | | | CMP POC | | | [facility] | | | | | | [facility] | | | | | | OF CARE | | | | | | TESTS | | + +-------+ + + + | ALT, CMP | 39 | 0 - 60 U/L | [facility] - | | | POC | | | [facility] | | | | | | [facility] | | | | | | OF CARE | | | | | | TESTS | | + +-------+ + + + | AST, CMP | 25 | 0 - 41 U/L | [facility] - | | | POC | | | [facility] | | | | | | [place] | | | | | | OF CARE | | | | | | TESTS | | + +-------+ + + + | BILIRUBIN | 0.7 | 0.3 - 1.2 mg/dL | [facility] - | | | TOTAL, CMP | | | [facility] | | | POC | | | [facility] | | | | | | OF CARE | | | | | | TESTS | | + +-------+ + + + | ALBUMIN, | 4.2 | 3.5 - 4.7 g/dL | [facility] - | | | CMP POC | | | [facility] | | | | | | [facility] | | | | | | OF CARE | | | | | | TESTS | | + +-------+ + + + | PROTEIN | 7.1 [...] [facility] | [address] | [place], [place] | | | [facility] OF CARE | [address] | [address] | | | TESTS | | | | + + + + + LDH TOTAL, PLASMA (08/17/2015 3:20 PM PST) + +---------+ + + + | Component | Value | Ref Range | Performed | Pathologist | | | | | At | Signature | + +---------+ + + + | LD TOTAL, | 129 | <=250 U/L | [facility] | | [...] [facility] LOZA | [address] | [place] [address] | | | INDRA SHARIF | [place] [...] +-------+------+------+ | diphenhydrAMINE (BENADRYL) | Given | 08/17/19 | 25 mg | | | | capsule 25 mg 25 mg, oral, ONCE, | | 16 3:50 | | | | | 1 dose, 08/17/15 at 1530 | | PM PST | | | | + +--------+ +-------+------+------+ +---+---+ | | | +---+---+ documented in this encounter"
--- OUTSIDE RECORDS SUMMARY | ~2019-05-17 | XMS | Encounter Summary ---
Demographics + + + | Address | [address] | | | [place] [address] | + + + | Home Phone | | + + + | Preferred Language | Unknown | + + + | Marital Status | | + + + | Faith Affiliation | SPI | + + + [...] Team Providers + +------+ + | Care Tool Dispatcher Name | Role | Phone | + +------+ + | Pending Pcp Addition | PCP | Unavailable | + +------+ + Reason for Visit + + + | Reason | Comments | + + + | Lab Draw | Trifusion | + + + | Chemotherapy | Cycle 3 Day 1 Vidaza | + + + | Medication | Potassium 40 meq; Oxycodone 10 mg PO | | Administration | | + + + Chemotherapy (Routine) [...] | | | | ic leukemia, | [facility] | [facility] | | | | | not having | [address] | [address] | | | | | achieved | [place], [place] | Mailcode: | | | | | remission | [address] | [id number] | | | | | Procedures | Phone: | [facility] | | | | | [place] | [phone] | [facility]ilion | | | | | AZACITIDINE | Fax: | [place], [place] | | | | | INJECTION, 1 | [phone] | [address] | | | | | [place] | | Phone: | | | | | CHM,IV | | [phone] | | | | | INFSN,1 HR | | Fax: | | | | | [place] CHM,IV | | [phone] | | | | | INFSN,ADDL | | | | | | | HR Vidaza | | | +--------+---------+ + + + + Encounter Details +--------+ + + + + | Date | Type | Department | Care Team | Description | +--------+ + + + + | 12/26/ | Clinical | [facility] | | Lab Draw | | 2016 | Support | Hematologic | | (Trifusion); | | | Staff | [facility] | | Chemotherapy (Cycle | | | | [address] | | 3 Day 1 Vidaza ); | | | | [address] Mailcode: | | Medication | | | | [id number] | | Administration | | | | Asha Mccune, | | (Potassium 40 meq; | | | | [place] [address] | | Oxycodone 10 mg PO) | | | | [phone] | | | +--------+ + + + [...] + + + | Blood Pressure | 148/89 | 12/27/2015 8:55 AM | | | | | PDT | | + + + + + | Pulse | 91 | 12/27/2015 8:55 AM | | | | | PDT | | + + + + + | Temperature | 36.9 C (98.5 F) | 12/27/2015 8:40 AM | | | | | PDT | | + + + + + | Respiratory Rate | 18 | 12/27/2015 8:40 AM | | | | | PDT | | + + + + + | Oxygen Saturation | 98% | 12/27/2015 8:40 AM | | | | | PDT | | + + + + + | Inhaled Oxygen | - | - | | | Concentration | | | | + + + + + | Weight | 85.6 kg (188 lb 11.4 | 12/27/2015 8:40 AM | | | | oz) | PDT | | + + + + + | Height | - | - | | + + + + + | Body Mass Index | 24.39 | 08/18/2015 4:35 PM | | | | | PST | | + + + + + documented in this encounter Progress Notes Rochelle Ozuna - 12/27/2015 9:15 AM PDTFormatting of this note might be different from e original. Chemotherapy Nurse Note Name: Khurram Kelly Date: 12/27/2015 Physician: Yari Garcia MD Allergies: Khurram is allergic to chlorhexidine towelette. Pre-Chemotherapy Pain Score: Patient reports a pain level of 7 today. Nursing Assessment: BP upon arrival in clinic 150/92 and recheck 148/89. Patient has c/o 7 out of 10 bilateral knee pain that started on Sunday night. Patient reports pain is exacer bated with standing / walking. Denies any alleviating factors. Patient also reports pain in BUE. Fever / Chills: no; Dyspnea / Cough: no; Dizziness / Lightheadedness: no; S/S bleeding: no; Edema: no; Fatigue / Malaise: no; Rash: improvement of rash on BUE; Nausea / Vomiting: no; Constipation / Diarrhea: no; Urinary issues: no. Patient reports he is eating and drinki ng 2 L per day without difficulty. Labs: CBC with diff last 72 hours (or 3 results) Recent Labs 12/27/15 0858 WBC 8.8 HB 14.0 HCT 40.4* PLT 90* MONOPERC 8.1 BASOPERC 0.3 EOSPERC 0.6* Chemistries: Last 72 Hours (or 3 results): Recent Labs 12/27/15 0856 NA 140 K 3.2* CL 100 BICARB 28 BUN 13 CR 0.6* GLU 132* CA 9.9 MG 2.0 Narrative: hKurram is a 25 [address] patient of Dr[address] Garcia with a hx of primary refractory AML , s/p tBuCy conditioned MM URD SCT. Patient arrives ambulatory with his spouse for labs and Cycle [address] Garcia notified regarding new bilateral knee pain and proceeding wit h Chemotherapy. Vascular Access: Trifusion accessed per protocol. Good blood return noted. Appropriate waste discarded. Labs drawn and sent from red lumen. Trifusion pulse flushed with 20 mL NS. Prior to D/C, all lumens heparin locked per protocol with 5 mL of 10 units/mL Heparin. 1415: Trifusion accessed per protocol. Good blood return noted. Appropriate waste discarded . Labs drawn and sent from red lumen. Trifusion pulse flushed with 20 mL NS and 5 mL of 10 u nits/mL Heparin. Treatment Provided: For Treatment Done in Clinic Today: see MAR TO with RB received from Dr. Garcia for Oxycodone 10 mg PO once. Patient rating pain 8 out of 10 prior to administration. 1 hour after administration the patient is rating his pain 8 ou t of 10 with no change. Cold Compress applied to bilateral knees and patient reported "mild" relief. Per infusion plan, no transfusions needed. Potassium chloride 40 meq PO administered per infusion plan orders for a potassium level of 3.2. RN received okay to release chemotherapy from MD and appointment with MD made for 1310. Pre -medications of Zofran 8 mg PO given as ordered. Chemotherapy was checked by 2 RNs. Vidaza 70 mg was infused per chemotherapy protocol and c ompleted without adverse event. Positive blood return noted pre and post infusion. For infus ion details, see MAR. Patient d/c from infusion room to go get lunch prior to MD visit at 1310. Chemotherapy prec autions reviewed. Patient was reminded to call clinic with temp > 100.4, chills, s/s of blee ding, pain or uncontrolled N/V/D/C. Patient verbalizes understanding. Patient was instructed to check out at the front end driver prior to leaving the clinic. Patient d/c d via w/c with ruy [place]. Rochelle Ozuna RN documented in this encoun ter Plan [...] Rd | | | | | | [place], [place] | | | | | | [address] | | | | | | [phone] | | | | | | | | +--------+---------+ + + + documented as of this encounter Procedures + +--------+ + + + | Procedure Name | Priori | Date/Time | Associated Diagnosis | Comments | | | ty | | | | + +--------+ + + + | ALDOLASE, SERUM | Routin | 12/27/2015 | Acute pain of both | Results for this | | | e | 2:15 PM | knees | procedure are in the | | | | PDT | | results section. | + +--------+ + + + | CK, PLASMA | Routin | 12/27/2015 | Acute pain of both | Results for this | | | e | 2:15 PM | knees | procedure are in the | | | | PDT | | results section. | + +--------+ + + + | CMV PCR | Routin | 12/27/2015 | S/P allogeneic | Results for this | | QUANTITATION, PLASMA | e | 9:00 AM | bone marrow | procedure are in the | | | | PDT | transplant ([facility]) | results section. 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[facility])- primary | | | | | | induction failure | | + +--------+ + + + | LIVER SET | Urgent | 12/27/2015 | S/P allogeneic | Results for this | | (AST,ALT,BILI | | 9:00 AM | bone marrow | procedure are in the | | TOTAL,BILI | | PDT | transplant ([facility]) | results section. | | DIRECT,ALK | | | Acute myeloid | | | PHOS,ALB,PROT TOTAL) | | | leukemia (AML), M4 | | | | | | ([facility])- primary | | | | | | induction failure | | + +--------+ + + + | CBC+DIFF,POC | Urgent | 12/27/2015 | Acute myeloid | Results for this | | | | 8:58 AM | leukemia (AML), M4 | procedure are in the | | | | PDT | (HCC)- primary | results section. | | | | | induction failure | | + +--------+ + + + | BMP + MAG, POC CHM | Routin | 12/27/2015 | S/P allogeneic | Results for this | | | e | 8:56 AM | bone marrow | procedure are in the | | | | PDT | transplant (HCC) | results section. 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[facility])- primary | | | | | | induction failure | | + +--------+ + + + | TREATMENT PARAMETERS | Routin | 12/27/2015 | 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:32 AM | leukemia (AML), 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 | | | | | | induction failure | | + +--------+ + + + | TREATMENT PARAMETERS | Routin | 12/27/2015 | 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:32 AM | leukemia (AML), 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 | | | | | | induction failure | | + +--------+ + + + | TREATMENT PARAMETERS | Routin | 12/27/2015 | 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:32 AM | leukemia (AML), 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 | | | | | | induction failure | | + +--------+ + + + | TREATMENT PARAMETERS | Routin | 12/27/2015 | 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:32 AM | leukemia (AML), M4 | | | | | PDT | ([facility])- primary | | | | | | induction failure | | + +--------+ + + + | TREATMENT PARAMETERS | Routin | 12/27/2015 | 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:32 AM | leukemia (AML), M4 | | | | | PDT | ([facility])- primary | | | | | | induction failure | | + +--------+ + + + | NURSING | Routin | 12/27/2015 | Acute myeloid | | | COMMUNICATION #3 - | e | 8:32 AM | leukemia (AML), M4 | | | [facility] | | PDT | ([facility])- primary | | | | | | induction failure | | + +--------+ + + + | NURSING | Routin | 12/27/2015 | Acute myeloid | | | COMMUNICATION #2 - | e | 8:32 AM | leukemia (AML), M4 | | | [place] | | PDT | ([facility])- primary | | | | | | induction failure | | + +--------+ + + + | NURSING | Routin | 12/27/2015 | Acute myeloid | | | COMMUNICATION #1 - | e | 8:32 AM | leukemia (AML), M4 | | | [place] | | PDT | ([facility])- primary | | | | | | induction failure | | + +--------+ + + + | TREATMENT PARAMETERS | Routin | 12/27/2015 | Acute myeloid | | | #1 - [place] | e | 8:32 AM | leukemia (AML), M4 | | | | | PDT | ([facility])- primary | | | | | | induction failure | | + +--------+ + + + | TREATMENT PARAMETERS | Routin | 12/27/2015 | Acute myeloid | | | #1 - [place] | e | 8:32 AM | leukemia (AML), M4 | | | | | PDT | ([facility])- primary | | | | | | induction failure | | + +--------+ + + + documented in this encounter Results ALDOLASE, SERUM (12/27/2015 2:15 PM PDT) + + + + + + | Component | Value | Ref Range | Performed | Pathologist | | | | | At | Signature | + + + + + + | ALDOLASE | 11.9 (H)Comment: | 1.5 - 8.1 U/L | [facility] | | | SERUM | REFERENCE INTERVAL: | | REG UNIV | | | | Aldolase Access complete | | PTH - [facility] | | | | set of age- and/or | | | | | | gender-specific | | | | | | reference intervals for | | | | | | this test in the [facility] | | | | | | Laboratory Test | | | | | | Directory | | | | | | ([email or web address]).Performed | | | | | | by [address] | | | | | [address], [facility],[place] | | | | | | [address] | | | | | | [phone].[email or web address]. | | | | | | [facility], Elmo Roberts, | | | | | | MD Lab. Director | | | | + + + + + + + + | Specimen | + + | Blood - Blood | + + + + + + + | Performing | Address | City/State/Zipcode | Phone Number | | Organization | | | | + + + + + | [facility] | [address] | [place], [place] | | | UNIV PTH - [facility] | | [address] | | + + + + + CK, PLASMA (12/27/2015 2:15 PM PDT) + +--------+ + + + | Component | Value | Ref Range | Performed | Pathologist | | | | | At | Signature | + +--------+ + + + | CK | 39 (L) | 49 - 397 U/L | [facility] | | | | [...] [facility] | [address] | [place] [address] | | | SERVICES, CORE | [address] | | | + + + + + LIVER SET (AST,ALT,BILI TOTAL,BILI DIRECT,ALK PHOS,ALB,PROT TOTAL) (12/27/2015 9:00 AM PDT ) + +---------+ + + [...] + + + | ALK PHOS | 77 | 53 - 128 U/L | [facility] | | | | | | LABORATORY | | | | | | SERVICES, | | | | | | CORE | | + +---------+ + + + | AST(SGOT) | 72 (H) | <=41 U/L | [facility] | | | | | | LABORATORY | | | | | | SERVICES, | | | | | | CORE | | + +---------+ + + + | ALT (SGPT) | 206 (H) | <=60 U/L | [facility] | [...] + | [facility] | [address] | [place] [address] | | | SERVICES, CORE | [address] | | | + + + + + CMV PCR QUANTITATION, PLASMA (12/27/2015 9:00 AM PDT) + + + + + [...] | | | characteristics determined by the [facility] | | | Molecular Diagnostic Center. It has not been cleared or approved by | | | the Food and Drug Administration. FDA approval is not required for | | | clinical use of this test, and therefore validation was done as | | | required under the requirements of the Clinical Laboratory Improvement | | | Act of 1988. The [facility] | | | Diagnostic Center is a fully licensed and/or accredited clinical | | | laboratory under CLIA, CAP, and the [facility]. | | + + + + + + + + | Performing | Address | City/State/[facility] | Phone Number | | Organization | | | | + + + + + | [facility] | [address] | [place] [address] | | | DIAGNOSTIC | [address] | | | | LABORATORIES | | | | + + + + + CBC+DIFF,POC (12/27/2015 8:58 AM PDT) + + + + + [...] + + + | HGB POC | 14.0 | 13.5 - 17.5 | [facility] - | | | | | g/dL | [place] | | | | | | [facility], POINT | | | | | | OF CARE | | | | | | TESTS | | + + + + + + | HCT POC | 40.4 (L) | 41.0 - 53.0 % | [facility] | | | | | | [place] | | | | | | [facility], POINT | | | | | | OF CARE | | | | | | TESTS | | + + + + + + | MCV POC | 102.8 (H) | 80.0 - 96.0 fL | [...] + + | RDW SD, POC | 54.7 (H) | 35.1 - 46.3 fL | [facility] | | | | | | [place] | | | | | | [facility] POINT | | | | | | OF CARE | | | | | | TESTS | | + + + + + + | PLT POC | 90 (L) | 150 - 400 | [facility] [...] + + + + | NEUTROPHIL% | 69.7 | 50.0 - 70.0 % | [facility] - | | | POC | | | [place] | | | | | | [place], POINT | | | | | | OF CARE | | | | | | TESTS | | + + + + + + | LYMPH% POC | 21.3 | 18 - 42 % | [facility] [...] + + | EOS %, POC | 0.6 (L) | 1.0 - 3.0 % | [...] + + + + | NEUTROPHIL# | 6.1 | 1.8 - 7.7 | [facility] - [...] [facility] | [address] | [place], [place] | | | RUTHIE CARTER OF CARE | [address] | [address] | | | TESTS | | | | + + + + + BMP + MAG, POC CHM (12/27/2015 8:56 AM PDT) + +---------+ + + + [...] [place] | | | | | | RUTIHE [...] + + + | LDH, POC | 372 (H) | 0 - 206 U/L | [...] [facility] | [address] | [place], [place] | | | [facility] POINT OF CARE | [address] | [address] | | | TESTS | | | | + + + + + documented in this encounter Visit Diagnoses + + | Diagnosis | + + | Acute myeloid leukemia (AML), M4 (HCC)- primary induction failure - Primary | + + | 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HCC) Bone marrow replaced by transplant | + + | Acute pain of both knees | + + documented in this encounter Administered Medications + +---------+ +-------+-------+------+ | Medication Order | MAR | Action | Dose | Rate | Site | | | Action | Date | | | | + +---------+ +-------+-------+------+ | azaCITIDine (VIDAZA) 70 mg in | New Bag | 12/27/19 | 70 mg | 214 | | | NaCl 0.9 % IV 70 mg (rounded | | 16 11:20 | | mL/hr | | | from 67.84 mg = 32 mg/m2 | | AM PDT | | | | | 2.12 m2 Treatment plan recorded | | | | | | | BSA), intravenous, Administer | | | | | | | over 30 Minutes, ONCE, 1 dose, | | | | | | | Sun12/27/15 at 1100, HIGH RISK | | | | | | | MEDICATION-CHEMOTHERAPY | | | | | | | Administration must be completed | | | | | | | within 1 hour of preparation., | | | | | | + +---------+ +-------+-------+------+ +---+---+ | | | +---+---+ + +-------+ + +---+---+ | heparin 10 unit/mL IV flush | Given | 12/27/19 | 50 Units | | | | syringe 50 Units 50 Units, | | 16 12:06 | | | | | Intracatheter, NEEDED, | | PM PDT | | | | | Starting Sun12/27/15 at 0958, | | | | | | | Until Sun12/27/15 at 2054, line | | | | | | | patency | | | | | | + +-------+ + +---+---+ +-------+ + +---+---+ | Given | 12/27/19 | 50 Units | | | | | 16 12:05 | | | | | | PM PDT | | | | +-------+ + +---+---+ | Given | 12/27/19 | 50 Units | | | | | 16 12:04 | | | | | | PM PDT | | | | +-------+ + +---+---+ +---+---+ | | | +---+---+ + +-------+ +------+---+---+ | ondansetron (ZOFRAN) tablet 8 | Given | 12/27/19 | 8 mg | | | | mg 8 mg, oral, ONCE, 1 dose, Sun | | 16 10:55 | | | | | 12/27/15 at 1100 | | AM PDT | | | | + +-------+ +------+---+---+ +---+---+ | | | +---+---+ + +-------+ +-------+---+---+ | oxyCODONE (immediate release) | Given | 12/27/19 | 10 mg | | | | (ROXICODONE) tablet 10 mg 10 mg, | | 16 9:40 | | | | | oral, ONCE, 1 dose, Sun12/27/15 | | AM PDT | | | | | at 0945 | | | | | | + +-------+ +-------+---+---+ +---+---+ | | | +---+---+ + +-------+ +--------+---+---+ | potassium chloride SR (K-DUR) | Given | 12/27/19 | 40 mEq | | | | tablet 40 mEq 40 mEq, oral, | | 16 10:40 | | | | | ONCE, 1 dose, Sun12/27/15 at 0930 | | AM PDT | | | | + +-------+ +--------+---+---+ +---+---+ | | | +---+---+ documented in this encounter
--- OUTSIDE RECORDS SUMMARY | ~2019-05-17 | XMS | Encounter Summary ---
Demographics + + + | Address | [address] | | | [place] [address] | + + + | Home Phone [...] Team Providers + +------+ + | Care Scanning Coordinator Name | Role | Phone | + +------+ + | Pending Pcp Addition | PCP | Unavailable | + +------+ + Reason for Visit + + + | Reason | Comments | + + + | Medication | Tacrolimus | | management | | + + + Encounter Details +--------+ + + + + | Date | Type | Department | Care Team | Description | +--------+ + + + + | 10/31/ | Telephone | Center for | Yari Garcia MD | Medication | | 2016 | | Hematologic | [address] | management | | | | [facility] | [address] | (Tacrolimus) | | | | [address] | [place], [place] | | | | | [address] Mailcode: | [address] | | | | | [facility] | [phone] | | | | | [place], | | | | | | [place] [address] | | | | | | [phone] | | | +--------+ + + + [...] Rd | | | | | | [place] | | | | | | [address] | | | | | | [phone] | | | | | | | | +--------+---------+ + + + documented as of this encounter Visit Diagnoses Not on filedocumented in this encounter"
--- OUTSIDE RECORDS SUMMARY | ~2019-05-17 | XMS | Encounter Summary ---
Demographics + + + | Address | [address] | | | [place] [address] | + + + | Home Phone [...] Team Providers + +------+ + | Care Product Planner Name | Role | Phone | + [...] [address] | | | | | bones of | [address] | | | | | both hips | Rd | Rd [place], | | | | | ([facility]) | [place], [place] | [place] | | | | | Procedures | [address] | [address] | | | | | REQUEST TO | Phone: | Phone: | | | | | SURGERY | [phone] | [phone] | | | | | THORACIC MEDICINE PHYSICIAN | Fax: | Fax: | | | | | [facility] TOTAL HIP | [phone] | [phone] | | | | | | | | | | | | ARTHROPLASTY | | | +--------+--------+ + + + + Reason for Visit + + + | Reason | Comments | + + + | New patient | | | consultation | | + + + Consultation (Urgent) +--------+--------+ + + + + | Status | Reason | Specialty | Diagnoses / | Referred By | Referred To | | | | | Procedures | Contact | Contact | +--------+--------+ + + + + | Closed | | Orthopedics | Diagnoses | Placido | Zeyad, | | | | | AVN of | ORLY Louise | Lobo Orozco MD | | | | | femur (HCC) | [address] | [address] | | | | | Procedures | [address] | [address] | | | | | CONSULT TO | Rd | Rd Jennifer, | | | | | ORTHOPEDICS | [place], [place] | [place] | | | | | AND | | | | | | | REHABILITATI | Phone: | Phone: | | | | | ON | [phone] | [phone] | | | | | | Fax: | Fax: | | | | | | [phone] | [phone] | +--------+--------+ + + + + Encounter Details +--------+---------+ + + + | Date | Type | Department | Care Team | Description | +--------+---------+ + + + | 08/11/ | Office | Orthopaedics at | Lobo Jeffers, | Avascular necrosis | | 2017 | Visit | [facility] [address] | [address] | of bones of both | | | | Ave Mailcode: CH12A | [address] | hips (HCC) (Primary | | | [facility] | [place], [place] | Dx) | | | | and Healing, | | | | | | Building | [phone] | | | | | Floor [facility] [place] | | | | | | [address] | | | | | | [phone] | | | +--------+---------+ + + + [...] + + + | Blood Pressure | 119/79 | 08/11/2016 9:07 AM | | | | | PST | | + + + + + | Pulse | 73 | 08/11/2016 9:07 AM | | | [...] + + + + | Weight | 90.7 kg (200 lb) | 08/11/2016 9:07 AM | | | | | PST | | + + + + + | Height | 190.5 cm (6' 3") | 08/11/2016 9:07 AM | | | | | PST | | + + + + + | Body Mass Index | 25 | 08/11/2016 9:07 AM | | | | | PST | | + + + + + documented in this encounter Progress Notes Lobo Jeffers MD - 08/11/2016 9:20 AM PSTFormatting of this note might be different fro m the original. Chief Complaint: Left hip pain History: Khurram Strongsana is a 26 y.o. 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 He is approximately 1 year out from his transplant. He reports having incr easing left hip pain over the last several months. The pain is located directly in the groin with some radiation down towards the knee. The pain is activity related. He is currently ab le to walk approximately half a mile. He does not use a cane. He reports no pain in the righ t hip. He denies any pain in the shoulders. 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 Indicati ons: Anxiety, Disp: 90 tablet, Rfl: 0 amLODIPine 5 mg oral tablet, Take one-half tablet by mouth once daily., Disp: 30 tablet, Rf l: 2 beclomethasone 1 mg/mL oral suspension (compound), Take 1 mL by mouth four times daily. Sha ke well and refrigerate. Please give 24 hours notice to compound medication. Discard after 1 4 days., Disp: 250 mL, Rfl: 5 omeprazole 20 mg oral capsule,delayed release(DR/EC), Take 1 capsule by mouth before breakf ast., Disp: 30 capsule, Rfl: 11 ondansetron 8 mg oral tablet, Take 1 tablet by mouth every twelve hours as needed., Disp: 3 0 tablet, Rfl: 2 oxyCODONE CR 20 mg oral tablet,oral only,ext.rel.12 hr, Take 1 tablet by mouth every twelve hours. Indications: Chronic Pain, Disp: 60 tablet, Rfl: 0 oxyCODONE, immediate release, 5 mg oral tablet, Take 1 to 2 tablets by mouth every six hour s as needed for moderate pain or severe pain., Disp: 120 tablet, Rfl: 0 tacrolimus 0.5 mg oral capsule, Take 0.5 mg (one capsule) by mouth twice daily, Disp: 120 c apsule, Rfl: 3 trimethoprim-sulfamethoxazole 160-800 mg oral tablet, Take 1 tablet by mouth twice daily (e very Sunday and )., Disp: 16 tablet, Rfl: 2 Allergies Allergen Reactions Chlorhexidine Towelette Rash PAVAN cloths - ok to use Chloraprep for dresssing change per pt. Review of systems: The patient completed the review of systems intake form. He reports nausea, and fatigue. Re maining systems are reported as within normal limits. Exam: Filed Vitals: 08/11/2016 9:07 AM Height: 1.905 m (6' 3") Weight: 90.7 kg (200 lb) BP: 119/79 Pulse: 73 PainSc: 06 - Severe PainLoc: Leg (Left) BMI: 25 kg/(m^2) This appears like a relatively healthy young adult male. He is in no acute distress at rest . He has a very mild left-sided limp with ambulation. The left lower extremity has normal profile. There are no palpable masses. He is not tender to palpation over the greater trochanter. He has no palpable masses in the groin. He allows approximately 15 of internal and external rotation. This is compared to approximately 45 of internal rotation on the right side. He does not seem to have pain with range of motion testing. He has sensation intact on the medial and lateral calf. He has active ankle planta r flexion and dorsiflexion. There is no edema and a palpable posterior tibial pulse. Imaging: as reviewed by me X-rays demonstrate the right hip is still round. The left hip has some mild collapse in the weightbearing region. MRI scan demonstrates significant effusion in the left hip. There is some AVN present in bi lateral hips. There is collapse on the left side. Plan: Khurram Kelly is a 26 y.o. male with a history of AML and a bone marrow transp lant. He subsequently developed bilateral hip AVN. The right side appears to be asymptomatic . I would recommend no intervention for that at this time. The lesion there is quite large. It is not clear to me that according procedure would be helpful for this. I think his risk o f progressing is very high. The left hip already has collapse. I think the only intervention reasonable would be a total hip arthroplasty. We reviewed the surgery today. He seems to un derstand. I will place him on the surgical schedule. He will discuss with his family if he w ishes to proceed right away or delay. I've also advised him that a cane used in the right bower nd would be very helpful for his pain.. documented in this en counter Plan of [...] Visit | Malignancy | [address] | | | | | | [address] | | | | | | [place], [place] | | | | | | [address] | | | | | | [phone] | | | | | | | | +--------+---------+ + + + documented as of this encounter Visit Diagnoses + + | Diagnosis | + + | 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) - Primary Aseptic necrosis of head and | | neck of femur | + + documented in this encounter
--- OUTSIDE RECORDS SUMMARY | ~2019-05-17 | XMS | Encounter Summary ---
Demographics + + + | Address | [address] | | | [place] [address] | + + + | Home Phone [...] Team Providers + +------+ + | Care Regional Vice President Surgical Sales Name | Role | Phone | + +------+ + | Zayda Hinton | PCP | | + +------+ + Encounter Details +--------+ + + + + | Date | Type | Department | Care Team | Description | +--------+ + + + + | 08/16/ | Pharmacy | Specialty Pharmacy | | | | 2015 | Visit | Services [address] | | | | | [address] | | | | | | [place], [place] | | | | | | [address] | | | | | | [phone] | | | +--------+ + + + [...] [place] | | | | | | [address] | | | | | | [phone] | | | | | | | | +--------+---------+ + + + documented as of this encounter Visit Diagnoses Not on filedocumented in this encounter"
--- OUTSIDE RECORDS SUMMARY | ~2019-05-17 | XMS | Encounter Summary ---
Demographics + + + | Address | [address] | | | [place] [address] | + + + | Home Phone [...] Team Providers + +------+ + | Care Scagliola Mechanic Name | Role | Phone | + +------+ + | Pending Pcp Addition | PCP | Unavailable | + +------+ + Encounter Details +--------+ + + + + | Date | Type | Department | Care Team | Description | +--------+ + + + + | 08/09/ | Results | Registration [id number] | Yari Garcia MD | | | 2016 | Only | [address] | [address] | | | | | [address] Mailcode: RPB07 | [address] | | | | | [place], [place] | [place], [place] | | | | | [address] | [address] | | | | | [phone] | [phone] | | | | | | | [...] 2018 | Visit | Malignancy | [address] | | | | | | [address] | | | | | | [place], [place] | | | | | | [address] | | | | | | [phone] | | | | | | | | +--------+---------+ + + + documented as of this encounter Procedures + +--------+ + + + | Procedure Name | Priori | Date/Time | Associated Diagnosis | Comments | | | ty | | | | + +--------+ + + + | CT MAXILLOFACIAL W | Routin | 08/09/2015 | | Results for this | | CONTRAST | e | 11:22 AM | | procedure are in the | | | | PST | | results section. | + +--------+ + + + documented in this encounter Results CT MAX'FACIAL W CONTRAST (08/09/2015 11:22 AM PST) + + + + + + | Component | Value | Ref Range | Performed | Pathologist | | | | | At | Signature | + + + + + + | CT | EXAM: CT face with | | | | | MAX'FACIAL | contrast HISTORY: AML | | | | | W CONTRAST | COMPARISON: 06/07/15 | | | | | | TECHNIQUE: CT of the | | | | | | face with 100 mL | | | | | | Omnipaque-300 | | | | | | intravenous contrast. | | | | | | FINDINGS: Face: No | | | | | | fractures identified. | | | | | | Orbits: Unremarkable | | | | | | Soft tissues: The | | | | | | previously seen | | | | | | enlargement and | | | | | | enhancement in the | | | | | | leftparotid gland is no | | | | | | longer evident within | | | | | | the parotid glands now | | | | | | beingsymmetric and | | | | | | somewhat atrophic | | | | | | appearing. No | | | | | | pathologically enlarged | | | | | | ormorphologically | | | | | | abnormal lymph nodes are | | | | | | seen. A few scattered | | | | | | subcentimeterlevel II | | | | | | lymph nodes are noted. | | | | | | Paranasal sinuses: | | | | | | Minimal mucosal | | | | | | thickening likely mucous | | | | | | retention cystin the | | | | | | left sphenoid sinus is | | | | | | unchanged. Remainder of | | | | | | sinuses have less | | | | | | mucosalthickening than | | | | | | previous exam. | | | | | | Mandible: UnremarkableNo | | | | | | abnormal enhancement. | | | | | | Brain: Visualized | | | | | | portions are | | | | | | unremarkable. | | | | | | IMPRESSION: Decreased | | | | | | size and enhancement of | | | | | | left parotid gland when | | | | | | compared to previous.No | | | | | | definite abnormality | | | | | | identified on today's | | | | | | exam. Attending | | | | | | Radiologists: MARIA M | | | | | | BHAVESH FRANKLINuthor: | | | | | | MARIA M FRANKLIN MD I | | | | | [...] Final/Electronically | | | | | | sherif / MARIA M | | | | | | NOEMI 08/09/2015 | | | | | | 14:32 PM | | | | + + + + + + + + | Specimen | + + | | + + + +---------+ + + | Performing | Address | City/State/Zipcode | Phone Number | | Organization | | | | + +---------+ + + | [facility]PART[facility] OF | | | | | RADIOLOGY | | | | + +---------+ + + documented in this encounter Visit Diagnoses Not on filedocumented in this encounter"
--- OUTSIDE RECORDS SUMMARY | ~2019-05-17 | XMS | Encounter Summary ---
Demographics + + + | Address | [address] | | | [place] [address] | + + + | Home Phone [...] Providers + +------+ + | Care Textile Conversion Manager Name | Role | Phone | + +------+ + | Zayda Hinton | PCP | | + +------+ + Encounter Details +--------+ + + + + | Date | Type | Department | Care Team | Description | +--------+ + + + + | 07/13/ | Pharmacy | Specialty Pharmacy | | | | 2016 | Visit | Services [address] | | | | | [address] | | | | | | [place], [place] | | | | | | [address] | | | | | | [phone] | | | +--------+ + + + [...] 2019 | Visit | Malignancy | [address] [facility] | | | | | | [address] | | | | | | [place], [place] | | | | | | [address] | | | | | | [phone] | | | | | | | | +--------+---------+ + + + documented as of this encounter Visit Diagnoses Not on filedocumented in this encounter"
--- OUTSIDE RECORDS SUMMARY | ~2019-05-17 | XMS | Encounter Summary ---
Demographics + + + | Address | [address] | | | [place] [address] | + + + | Home Phone [...] Team Providers + +------+ + | Care Personal Injury Specialist Name | Role | Phone | + +------+ + | Zayda Hinton | PCP | | + +------+ + Reason for Visit +--------+ + | Reason | Comments | +--------+ + | Other | need frequency on Alprazolam | +--------+ + Encounter Details +--------+ + + + + | Date | Type | Department | Care Team | Description | +--------+ + + + + | 01/01/ | Telephone | Center for | Yari Garcia MD | Other (need | | 2018 | | Hematologic | [address] [facility] | frequency on | | | | Malignancies at | [address] | Alprazolam) | | | | [facility] | [place], [place] | | | | | [address] [facility] | [address] | | | | | [address] Mailcode: | [phone] | | | | | [id number] | | | | | | [facility] [place], | | | | | | [place] [address] | | | | | | [phone] | | | +--------+ + + + [...] Rd | | | | | | [place], [place] | | | | | | [address] | | | | | | [phone] | | | | | | | | +--------+---------+ + + + documented as of this encounter Visit Diagnoses Not on filedocumented in this encounter"
--- OUTSIDE RECORDS SUMMARY | ~2019-05-17 | XMS | Encounter Summary ---
Demographics + + + | Address | [address] | | | [place] [address] | + + + | Home Phone [...] Team Providers + +------+ + | Care X Ray Nurse Name | Role | Phone | [...] | | | | | | | [address] | | | | | | | [address] | | | | | | | [place], | | | | | | | [place] | | | | | | | [address] | | | | | | | Phone: | | | | | | | [phone] | | | | | | | Fax: | | | | | | | [phone] | +--------+--------+ + + + + Encounter Details +--------+---------+ + + + | Date | Type | Department | Care Team | Description | +--------+---------+ + + + | 08/05/ | Office | Center for | Yari Garcia MD | 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), M4 | | | | Malignancies at | [address] | (HCC) (Primary Dx) | | | | [facility] | [place], [place] | | | | | [address] | [address] | | | | | Debi Burger Mailcode: | [phone] | | | | | [facility] | | | | | | [place], | | | | | | [place] [address] | | | | | | [phone] | | | +--------+---------+ + + + [...] + + + | Blood Pressure | 108/68 | 08/05/2015 1:51 PM | | | | | PST | | + + + + + | Pulse | 98 | 08/05/2015 1:51 PM | | | | | PST | | + + + + + | Temperature | 36.8 C (98.2 F) | 08/05/2015 1:51 PM | | | | | PST | | + + + + + | Respiratory Rate | 16 | 08/05/2015 1:51 PM | | | | | PST | | + + + + + | Oxygen Saturation | 97% | 08/05/2015 1:51 PM | | | | | PST | | + + + + + | Inhaled Oxygen | - | - | | | Concentration | | | | + + + + + | Weight | 82.9 kg (182 lb 12.2 | 08/05/2015 1:51 PM | | | | oz) | PST | | + + + + + | Height | - | - | | + + + + + | Body Mass Index | 23.15 | 07/15/2015 1:57 PM | | | | | PST | | + + + + + documented in this encounter Patient Instructions Patient Instructions Christina Hernandez RN - 08/05/2015 3:39 PM PSTJeremia Today platelets and then another blood draw If your platelets are greater than 20 no need to come back until Sunday If your platelets are less than 20 you will need to get an appointment to come in on Sunday for platelets. For your constipation issues we've sent the following prescriptions Colace Sennokot Lactulose We are going to move forward with the plan for your unrelated donor transplant---Dr. Garcia s aid NO dental appointment- We will arrange for Sunday the --bone marrow biopsy Then Sunday & Sunday complete the rest of the work up Lab, Chest xray, EKG, ECHO, PFT, Social eval and another CT scan. Then we will plan to have you see Dr. Garcia on Sunday08-16-15 to review the tests and sign co nsent forms. Plan to get a new central line and admit to [facility] for transplant on Aug 18, 2015 Transplant day Aug 26, 2015 Christina Hernandez will arrange and keep you posted documented in this encounter Progress Notes Yari Garcia MD - 08/29/2015 11:[address] [facility] 08/06/15 Diagnosis: AML - primary induction failure Reason for visit: Follow up after cycle #1 of decitabine, planning for admission for SCT i n next 2 weeks. Disease History: Khurram Kelly is a 24 [...] his L ankle. He was evaluated at [facility] on 06/[address] angiogram negative [...] acute myelomonocytic leukemia. He was referred to [facility] for further evaluation and man agement of his newly dx'd AML. Pt was admitted to [facility] on 05/26/15. Peripheral blood was sent for [...] CD34, variable CD56, variable CD117, and dim [id number] mickey; promonocyte immunophenotype (70% by flow): CD11b, [...] to home on 07/08/15 Interval History: Khurram returns to clinic today and is doing ok. He has had significant difficulty with c onstipation which he thinks has been contributing to a loss of appetite. He is eating small amount, but is using protein shakes/supplements. Notes petechiae on ankles, denies other bleeding/bruising. No fevers/chills. Excited abou t prospect of proceeding with transplant. Review of Systems Constitutional: Positive for weight loss and malaise/fatigue. Negative for fever and chills . HENT: Negative for nosebleeds. Eyes: Negative for blurred vision. Respiratory: Negative for cough and shortness of breath. Cardiovascular: Negative for chest pain, palpitations and leg swelling. Gastrointestinal: Positive for constipation. Negative for heartburn, nausea and vomiting. Musculoskeletal: Negative for myalgias and neck pain. Skin: Negative for itching and rash. Neurological: Negative for dizziness and weakness. Endo/Heme/Allergies: Does not bruise/bleed easily. Psychiatric/Behavioral: Positive for depression. The patient is not nervous/anxious. Current Medication List Name Sig ACYCLOVIR 800 MG TABLET Take 1 tablet by mouth once daily. ALPRAZOLAM 0.5 MG TABLET Take 2 tablets by mouth three times daily as needed for anxiety. CHLORHEXIDINE GLUCONATE 0.12 % MOUTHWASH Take 15 mL by mouth three times daily. Swish undil uted oral rinse around in mouth for 30 seconds, then spit. Do not swallow. DOCUSATE SODIUM 100 MG CAPSULE Take 1 capsule by mouth two times daily. LACTULOSE 10 GRAM ORAL PACKET Take 10 gram (one packet- and MIX as instructed) by mouth two times daily. LACTULOSE 10 GRAM/15 ML ORAL SOLUTION Take 1 tablespoonful (15 mL) by mouth twice daily. LEVOFLOXACIN 500 MG TABLET Take 1 tablet by mouth once daily. ONDANSETRON HCL 4 MG TABLET Take 1 to 2 tablets by mouth every twelve hours as needed for n ausea/vomiting. OXYCODONE 5 MG TABLET Take 1 to 2 tablets by mouth every three hours as needed. POSACONAZOLE 100 MG TABLET,DELAYED RELEASE Take 3 tablets by mouth once daily. PROCHLORPERAZINE MALEATE 5 MG TABLET Take 1 tablet by mouth every six hours as needed for n ausea/vomiting. Max dose: 40 mg/day SENNOSIDES-DOCUSATE SODIUM 8.6 MG-50 MG TABLET Take 1 tablet by mouth once daily. SERTRALINE 25 MG TABLET Take 1 tablet by mouth once daily. Indications: Anxiety with Depres cricket Allergies Allergen Reactions Chlorhexidine Towelette Rash PAVAN cloths - ok to use Chloraprep for dresssing change per pt. Physical Exam Constitutional: He is well-developed, well-nourished, and in no distress. No distress. Thin, non-toxic. HENT: Head: Normocephalic. Mouth/Throat: Oropharynx is [...] is not diaphoretic. No erythema. No pallor. Few petechiae over ankles around sock lines. Psychiatric: Memory, affect and judgment normal. Clinical Electric Truck Operator on 08/05/2015 Component Date Value WBC POC 08/05/2015 0.4* RBC POC 08/05/2015 2.80* HGB POC 08/05/2015 8.0* HCT POC 08/05/2015 22.0* MCV POC 08/05/2015 78.6* MCH POC 08/05/2015 28.6 MCHC POC 08/05/2015 36.4 RDW SD, POC 08/05/2015 30.3* PLT POC 08/05/2015 6* MPV POC 08/05/2015 ---- NEUTROPHIL% POC 08/05/2015 0.0* LYMPH% POC 08/05/2015 47.5* MONO %, POC 08/05/2015 50.0* EOS %, POC 08/05/2015 0.0* BASO %, POC 08/05/2015 2.5* NEUTROPHIL# POC 08/05/2015 0.0* LYMPH# POC 08/05/2015 0.2* MONO #, POC 08/05/2015 0.2 EOS #, POC 08/05/2015 0.0 BASO #, POC 08/05/2015 0.0 CBC COMMENT, POC 08/05/2015 WBC Abn Scat. PLT Abn Dist. SODIUM, POC 08/05/2015 145* POTASSIUM, POC 08/05/2015 5.5* TOTAL CO2, POC 08/05/2015 28 CHLORIDE, POC 08/05/2015 108 GLUCOSE, POC 08/05/2015 86 CALCIUM TOTAL, POC 08/05/2015 9.9 BUN, POC 08/05/2015 13 CREATININE, POC 08/05/2015 1.1 ALK PHOS, [facility] POC 08/05/2015 66 ALT, [facility] POC 08/05/2015 30 AST, [facility] POC 08/05/2015 21 BILIRUBIN TOTAL, [facility] POC 08/05/2015 0.7 ALBUMIN, [facility] POC 08/05/2015 3.9 PROTEIN TOTAL, [facility] POC 08/05/2015 7.2 LD TOTAL, PLASMA 08/05/2015 140 LD CMNT 08/05/2015 No Hemo PRODUCT DESCRIPTION 08/05/2015 PLATELETS PHERESIS, LEUKOCYTE REDUCED, IRRADIATED PRODUCT UNIT # 08/05/2015 [id number] UNIT ABO 08/05/2015 A UNIT RH 08/05/2015 POS STATUS OF UNIT 08/05/2015 Presumed Transfused EXPIRATION DATE 08/05/20152015915768262825 BLOOD TYPE BARCODE 08/05/2015 6200 BLOOD PRODUCT CODE 08/05/2015 [id number] POTASSIUM, PLASMA (LAB) 08/05/2015 4.9 POTASSIUM CMNT 08/05/2015 No Hemo WBC POC 08/05/2015 0.4* RBC POC 08/05/2015 2.56* HGB POC 08/05/2015 7.3* HCT POC 08/05/2015 20.2* MCV POC 08/05/2015 78.9* MCH POC 08/05/2015 28.5 MCHC POC 08/05/2015 36.1 RDW SD, POC 08/05/2015 30.4* PLT POC 08/05/2015 9* MPV POC 08/05/2015 11.6 NEUTROPHIL% POC 08/05/2015 0.0* LYMPH% POC 08/05/2015 65.9* MONO %, POC 08/05/2015 31.7* EOS %, POC 08/05/2015 0.0* BASO %, POC 08/05/2015 2.4* NEUTROPHIL# POC 08/05/2015 0.0* LYMPH# POC 08/05/2015 0.3* MONO #, POC 08/05/2015 0.1 EOS #, POC 08/05/2015 0.0 BASO #, POC 08/05/2015 0.0 Assessment: 24 year old male with PIF AMML after induction chemotherapy with idarubicin an d cytarabine followed by reinduction with high dose cytarabine and methotrexate. Plan: 1. AMML - very high risk situation with PIF after 2 courses of induction with only isolate d NRAS mutation, and without known antecedent hematologic disorder. Completed 10 day course of decitabine, counts remain at glenis, requiring twice weekly trans fusion support. Donor selected for tx and is acceptable antigen mm. Will use Bu/Cy prep. 2. Immunocompromised host -acyclovir for viral prophylaxis -levaquin for bacterial prophylaxis -posaconazole for fungal prophylaxis 3. Dental issues -has not been able to schedule a dental appointment due to scheduling issues, availability of dentists and very limited dental coverage. In setting of need to get to transplant urgen tly, may need to proceed without dental clearance. 4. Depression, Situational, no suicidal ideation -initiated sertraline 5. Cytopenias -transfuse with leukocyte reduced irradiated blood products for platelets <10, hct <21% or symptomatic 6. Follow-up -2x weekly labs and transfusions. -1x weekly provider visit 7. Constipation -lactulose -senna/colace Yari Garcia MD, MS [employer] viewer [facility] [address] [place] [address] [address], NEDA Ferreira - 08/05/2015 2:06 PM PSTName of Test: CBC Result: PLT 6 Time Results Received: 1402 Name of Provider Notified: Yari Garcia MD Date/Time of Provider Notification: 08/05/2015 3:09 PM Action(s) Taken: Readback, nurse notified. Paco Leblanc [...] 2018 | Visit | Malignancy | [address] [facility] [facility] [address] | | | | | | [address] | | | | | | [place], [place] | | | | | | [address] | | | | | | [phone] | | | | | | | | +--------+---------+ + + + documented as of this encounter Visit Diagnoses + + | Diagnosis | + + | Acute myeloid leukemia (AML), M4 (HCC) - Primary | + + documented in this encounter"
--- OUTSIDE RECORDS SUMMARY | ~2019-05-17 | XMS | Encounter Summary ---
Demographics + + + | Address | [address] | | | [place] [address] | + + + | Home Phone [...] Providers + +------+ + | Care Manager Lpn Name | Role | Phone | + [...] Description | +--------+--------+ + + + | 05/26/ | Refill | Center for | Yari Garcia MD | Refill Request | | 2016 | | Hematologic | [address] [facility] | | | | | Malignancies at | [address] | | | | | [facility] | [place], [place] | | | | | [address] | [address] | | | | | [address] Mailcode: | [phone] | | | | | [facility] | | | | | | [place], | | | | | | [place] [address] | | | | | | [phone] | | | +--------+--------+ + + + [...] [address] | | | | | | [place] | | | | | | [address] | | | | | | [phone] | | | | | | | | +--------+---------+ + + + documented as of this encounter Visit Diagnoses Not on filedocumented in this encounter"
--- OUTSIDE RECORDS SUMMARY | ~2019-05-17 | XMS | Encounter Summary ---
Demographics + + + | Address | [address] | | | [place] [address] | + + + | Home Phone [...] Team Providers + +------+ + | Care Miner Helper Name | Role | Phone | + +------+ + | Zayda Hinton | PCP | | + +------+ + Encounter Details +--------+ + + + + | Date | Type | Department | Care Team | Description | +--------+ + + + + | 08/23/ | Pharmacy | Specialty Pharmacy | | | | 2016 | Visit | Services [address] | | | | | | [address] | | | | | | [place], [place] | | | | | | [address] | | | | | | [phone] | | | +--------+ + + + [...] 2019 | Visit | Malignancy | [address] [facility] | | | | | | [address] | | | | | | [place], [place] | | | | | | [address] | | | | | | [phone] | | | | | | | | +--------+---------+ + + + documented as of this encounter Visit Diagnoses Not on filedocumented in this encounter"
--- OUTSIDE RECORDS SUMMARY | ~2019-05-17 | XMS | Encounter Summary ---
Demographics + + + | Address | [address] | | | [place] [address] | + + + | Home Phone [...] + + + | Author | [facility] | + + + | Organization | [facility] | + + + | Address | Unknown | + + + | Phone | Unavailable | + + + Support + + +---------+ + | Name | Relationship | Address | Phone | + + +---------+ + | Gabriel Kelly | ECON | Unknown | | + + +---------+ + Care Team Providers + +------+ + | Care Studio Model Name | Role | Phone | + +------+ + | Pending Pcp Addition | PCP | Unavailable | + +------+ + Encounter Details +--------+ + + + + | Date | Type | Department | Care Team | Description | +--------+ + + + + | 08/10/ | Documentati | Center for | Work, Social | | | 2016 | on | Hematologic | | | | | | Malignancies at | | | | | | [facility] | | | | | | [address] | | | | | | Debi [address] Mailcode: | | | | | | [facility] | | | | | | [place], | | | | | | [place] [address] | | | | | | [phone] | | | +--------+ + + + [...] [address] | | | | | | [place], [place] | | | | | | [address] | | | | | | [phone] | | | | | | | | +--------+---------+ + + + documented as of this encounter Visit Diagnoses Not on filedocumented in this encounter"
--- OUTSIDE RECORDS SUMMARY | ~2019-05-17 | XMS | Encounter Summary ---
Demographics + + + | Address | [address] | | | [place] [address] | + + + | Home Phone [...] Team Providers + +------+ + | Care Wardrobe Custodian Name | Role | Phone | + [...] + + + + | 09/17/ | Diagnostic | Center for | | Lab Draw | | 2018 | Visit | Hematologic | | | | | | Malignancies at | | | | | | [facility] | | | | | | [address] | | | | | | Debi Burger Mailcode: | | | | | | [facility] | | | | | | [place], | | | | | | [place] [address] | | | | | | [phone] | | | +--------+ + + + [...] documented as of this encounter Progress Notes Lincoln Hermosillo - 09/17/2017 9:45 AM PDTRight AC accessed with a 23 gauge butterfly needle. Labs drawn and sent. Tolerated procedure well. Site dressed with sterile gauze and Coban . Patient scheduled for provider visit today with Dr. Garcia. Lincoln Hermosillo MA documented in this encount [...] Rd | | | | | | [place], [place] | | | | | | [address] | | | | | | [phone] | | | | | | | | +--------+---------+ + + + documented as of this encounter Procedures + +--------+ + + + | Procedure Name | Priori | Date/Time | Associated Diagnosis | Comments | | | ty | | | | + +--------+ + + + | CBC+DIFF,POC | Routin | 09/17/2017 | S/P allogeneic | Results for this | | | e | 10:14 AM | bone marrow | procedure are in the | | | | PDT | transplant (HCC) | results section. | + +--------+ + + + | CMP, POC (BMP+LFT) | Routin | 09/17/2017 | S/P allogeneic | Results for this | | | e | 10:14 AM | bone marrow | procedure are in the | | | | PDT | transplant ([facility]) | results section. | + +--------+ + + + | LIPID SET (TRIG, T | Routin | 09/17/2017 | S/P allogeneic | Results for this | | CHOL, HDL, CALC LDL) | e | 10:02 AM | bone marrow | procedure are in the | | | | PDT | transplant ([facility]) | results section. | + +--------+ + + + documented in this encounter Results CMP, POC (BMP+LFT) (09/17/2017 10:14 AM PDT) + +---------+ + + + [...] + | GLUCOSE, | 108 (H) | 70 - 99 mg/dL | [...] + + + | ALK PHOS, | 62 | 41 - 99 U/L | [facility] - | | | CMP POC | | | [place] | | | | | | [facility] | | | | | | OF CARE | | | | | | TESTS | | + +---------+ + + + | ALT, CMP | 34 | 0 - 60 U/L | [facility] - | | | POC | | | [facility] | | | | | | [facility] | | | | | | OF CARE | | | | | | TESTS | | + +---------+ + + + | AST, CMP | 40 | 0 - 41 U/L | [facility] [...] +---------+ + + + | ALBUMIN, | 4.5 | 3.5 - 4.7 g/dL | [facility] - | | | CMP POC | | | [facility] | | | | | | [facility], POINT | | | | | | OF CARE | | | | | | TESTS | | + +---------+ + + + | PROTEIN | 7.3 | 6.1 - 7.9 g/dL | [facility] - | | | TOTAL, CMP [...] [place] | [address] | [place], [place] | | | [facility] CARE | [facility] | [address] | | | TESTS | | | | + + + + + CBC+DIFF,POC (09/17/2017 10:14 AM PDT) + + + + + + | Component | Value | Ref Range | Performed | Pathologist | | | | | At | Signature | + + + + + + | WBC POC | 9.9 | 3.5 - 10.8 | [facility] - | | | | | 10*3/uL | [place] | | | | | | [facility] | | | | | | OF CARE | | | | | | TESTS | | + + + + + + | RBC POC | 4.36 (L) | 4.50 - 6.00 | [facility] [...] + + + | HCT POC | 40.3 (L) | 41.0 - 53.0 % | [facility] - | | | | | | [place] | | | | | | [facility], POINT | | | | | | OF CARE | | | | | | TESTS | | + + + + + + | MCV POC | 92.4 | 80.0 - 96.0 fL | [facility] - | | | | | | [place] | | | | | | [place] POINT | | | | | | OF CARE | | | | | | TESTS | | + + + + + + | MCH POC | 31.2 | 28.5 - 32.3 pg | [facility] [...] + + | RDW SD, POC | 45.7 | 35.1 - 46.3 fL | [facility] - | | | | | | [place] | | | | | | [facility] | | | | | | OF CARE | | | | | | TESTS | | + + + + + + | PLT POC | 229 | 150 - 400 | [facility] - [...] + + + + | NEUTROPHIL% | 79.8 (H) | 50.0 - 70.0 % | [facility] - | | | POC | | | [place] | | | | | | [facility] | | | | | | OF CARE | | | | | | TESTS | | + + + + + + | LYMPH% POC | 10.5 (L) | 18 - 42 % | [...] + + | EOS %, POC | 2.2 | 1.0 - 3.0 % | [facility] [...] [facility] | [address] | [place], [place] | | | [facility] OF CARE | [address] | [address] | | | TESTS | | | | + + + + + LIPID SET (TRIG, T CHOL, HDL, CALC LDL) (09/17/2017 10:02 AM PDT) + +---------+ + + + | Component | Value | Ref Range | Performed | Pathologist | | | | | At | Signature | + +---------+ + + + | CHOLESTEROL | 192 | <200 mg/dL | [facility] | | | (LAB) | | | LABORATORY | | | | | | SERVICES, | | | | | | CORE | | + +---------+ + + + | TRIGLYCERID | 73 | <150 mg/dL | [facility] | | | ES | | | LABORATORY | | | | | | SERVICES, | | | | | | CORE | | + +---------+ + + + | HDL | 51 | >40 mg/dL | [facility] | | [...] +---------+ + + + | LDL | 126 (H) | <100 mg/dL | [facility] | | | CHOLESTEROL | | | LABORATORY | | | , | | | SERVICES, | | | CALCULATED | | | CORE | | + +---------+ + + + | VLDL | 15 | <31 mg/dL | [facility] | | | CHOLESTEROL | | | LABORATORY | | | , | | | SERVICES, | | | CALCULATED | | | CORE | | + +---------+ + + + | NON-HDL | 141 (H) | <130 mg/dL | [facility] | [...] YESSICA LOZA | [address] | [place] [address] | | | SERVICES, CORE | [address] | | | + + + + + documented in this encounter Visit Diagnoses + + | Diagnosis | + + | 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
--- OUTSIDE RECORDS SUMMARY | ~2019-05-17 | XMS | Encounter Summary ---
Demographics + + + | Address | [address] | | | [place] [address] | + + + | Home Phone [...] Team Providers + +------+ + | Care Training And Development Head Name | Role | Phone | + +------+ + | Zayda Hinton | PCP | | + +------+ + Encounter Details +--------+ + + + + | Date | Type | Department | Care Team | Description | +--------+ + + + + | 11/07/ | Pharmacy | Specialty Pharmacy | | | | 2015 | Visit | Services [address] | | | | | | [address] | | | | | | [place], [place] | | | | | | [address] | | | | | | [phone] | | | +--------+ + + + [...] Rd | | | | | | [place], [place] | | | | | | [address] | | | | | | [phone] | | | | | | | | +--------+---------+ + + + documented as of this encounter Visit Diagnoses Not on filedocumented in this encounter"
--- OUTSIDE RECORDS SUMMARY | ~2019-05-17 | XMS | Encounter Summary ---
Demographics + + + | Address | [address] | | | [place] [address] | + + + | Home Phone [...] Team Providers + +------+ + | Care Power Sewing Machine Operator Name | Role | Phone | + +------+ + | Zayda Hinton | PCP | | + +------+ + Encounter Details +--------+ + + + + | Date | Type | Department | Care Team | Description | +--------+ + + + + | 09/26/ | Pharmacy | Specialty Pharmacy | | | | 2015 | Visit | Services [address] | | | | | | [address] | | | | | | [place], [place] | | | | | | [address] | | | | | | [phone] | | | +--------+ + + + [...] 2019 | Visit | Malignancy | [address] | | | | | | [address] | | | | | | [place], [place] | | | | | | [address] | | | | | | [phone] | | | | | | | | +--------+---------+ + + + documented as of this encounter Visit Diagnoses Not on filedocumented in this encounter"
--- OUTSIDE RECORDS SUMMARY | ~2019-05-17 | XMS | Encounter Summary ---
Demographics + + + | Address | [address] | | | [place] [address] | + + + | Home Phone [...] Team Providers + +------+ + | Care Store Product Demonstrator Name | Role | Phone | + [...] | | | | | | | [address] | | | | | | | [address] | | | | | | | [place], | | | | | | | [place] | | | | | | | [address] | | | | | | | Phone: | | | | | | | [phone] | | | | | | | Fax: | | | | | | | [phone] | +--------+--------+ + + + + Encounter Details +--------+---------+ + + + | Date | Type | Department | Care Team | Description | +--------+---------+ + + + | 08/16/ | Office | Center for | Yari Garcia MD | 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), M4 | | | | Malignancies at | [address] | (HCC) (Primary Dx) | | | | [facility] | [place], [place] | | | | | [address] | [address] | | | | | [address] Mailcode: | [phone] | | | | | [id number] | | | | | | [place], | | | | | | [place] [address] | | | | | | [phone] | | | +--------+---------+ + + + [...] + + + | Blood Pressure | 132/77 | 08/16/2015 1:05 PM | | | | | PST | | + + + + + | Pulse | 75 | 08/16/2015 1:05 PM | | | | | PST | | + + + + + | Temperature | 36.7 C (98.1 F) | 08/16/2015 1:05 PM | | | | | PST | | + + + + + | Respiratory Rate | 16 | 08/16/2015 1:05 PM | | | | | PST | | + + + + + | Oxygen Saturation | 98% | 08/16/2015 1:05 PM | | | | | PST | | + + + + + | Inhaled Oxygen | - | - | | | Concentration | | | | + + + + + | Weight | 81.2 kg (179 lb 0.2 | 08/16/2015 1:05 PM | | | | oz) | PST | | + + + + + | Height | - | - | | + + + + + | Body Mass Index | 22.68 | 07/15/2015 1:57 PM | | | | | PST | | + + + + + documented in this encounter Patient Instructions Patient Instructions Christina Hernandez RN - 08/16/2015 2:10 PM PSTYou will need platelets diallo rrow at 3pm Then you will get your line placed on Sunday morning at 7:45 am The morning of your scheduled admission please come to [facility] and go directly to the admitti ng desk on the 9th floor [facility] and they will check you in and then send you to our t reatment floor (either the 13th or 14th floor of the [facility] [place]) documented in this encounter Progress Notes Yari Garcia MD - 08/18/2015 11:46 AM PST [facility] Diagnosis: AMML, primary refractory disease Identifying Data: Khurram Kelly is a 24 [...] his L ankle. He was evaluated at [place] ED on 06/[address] angiogram negative [...] acute myelomonocytic leukemia. He was referred to [facility] for further evaluation and man agement of his newly dx'd AML. Pt was admitted to [facility] on 05/26/15. Peripheral blood was [...] CD34, variable CD56, variable CD117, and dim DA663-ccpte mickey; promonocyte immunophenotype (70% by flow): CD11b, [...] d/c'd to home on 07/08/15 and has subsequently been treated with an uneventful course of decitabine (days 1-1 0, given July 19) without complication and without need for rehospitalization. Interim History: Khurram returns to clinic today feeling well overall. Anxious about upcoming transplant, but also wants to get started as soon as possible. No recent fevers/chills, eating and drin jen a bit better. No bleeding/bruising. No new side effects related to Zoloft - feels ange t it is helping with his mood . A complete Review of Systems was completed and was negative except as documented above. Medications are reviewed and are correct as listed in EPIC. Allergies Allergen Reactions Chlorhexidine Towelette Rash PAVAN cloths - ok to use Chloraprep for dresssing change per pt. Physical Exam: Last Vitals: BP 132/77 | Pulse 75 | Temp (Src) 36.7 C (98.1 F) (Oral) | RR 16 | Wt 81.2 kg (179 lb 0.2 oz) | SpO2 98% | BMI 22.68 kg/(m^2) Gen: sitting up at edge of exam table, non-toxic. HEENT: no oral lesions, no petechiae Lungs: CTA bilaterally CVS: RRR no M/G/R appreciated Abd: soft, NT no HSM appreciated Ext: no pitting edema Skin: no rash, few scattered petechiae Lymph: no cervical, supraclavicular adenopathy PICC line: No swelling/erythema or tenderness Clinical Arabic Linguist on 08/13/2015 Component Date Value WBC POC 08/13/2015 0.7* RBC POC 08/13/2015 2.67* HGB POC 08/13/2015 7.5* HCT POC 08/13/2015 20.9* MCV POC 08/13/2015 78.3* MCH POC 08/13/2015 28.1* MCHC POC 08/13/2015 35.9 RDW SD, POC 08/13/2015 29.7* PLT POC 08/13/2015 10* MPV POC 08/13/2015 10.7 NEUTROPHIL% POC 08/13/2015 2.9* LYMPH% POC 08/13/2015 33.3 MONO %, POC 08/13/2015 56.9* EOS %, POC 08/13/2015 0.0* BASO %, POC 08/13/2015 6.9* NEUTROPHIL# POC 08/13/2015 0.0* LYMPH# POC 08/13/2015 0.2* MONO #, POC 08/13/2015 0.4 EOS #, POC 08/13/2015 0.0 BASO #, POC 08/13/2015 0.0 CBC COMMENT, POC 08/13/2015 Counts reviewed. SODIUM, POC 08/13/2015 139 POTASSIUM, POC 08/13/2015 4.5 TOTAL CO2, POC 08/13/2015 27 CHLORIDE, POC 08/13/2015 106 GLUCOSE, POC 08/13/2015 107* CALCIUM TOTAL, POC 08/13/2015 9.7 BUN, POC 08/13/2015 13 CREATININE, POC 08/13/2015 0.9 ALK PHOS, CMP POC 08/13/2015 66 ALT, CMP POC 08/13/2015 41 AST, CMP POC 08/13/2015 23 BILIRUBIN TOTAL, [facility] POC 08/13/2015 0.6 ALBUMIN, [facility] POC 08/13/2015 3.8 PROTEIN TOTAL, [facility] POC 08/13/2015 7.0 LD TOTAL, PLASMA 08/13/2015 122 LD CMNT 08/13/2015 No Hemo ABO GROUP 08/13/2015 A RH TYPE, BLOOD 08/13/2015 Positive ANTIBODY SCREEN 08/13/2015 Negative PRODUCT DESCRIPTION 08/13/2015 PLATELETS PHERESIS, LEUKOCYTE REDUCED, IRRADIATED PRODUCT UNIT # 08/13/2015 [id number] UNIT ABO 08/13/2015 O UNIT RH 08/13/2015 POS STATUS OF UNIT 08/13/2015 Presumed Transfused EXPIRATION DATE 08/13/[id number] BLOOD TYPE BARCODE 08/13/2015 5100 BLOOD PRODUCT CODE 08/13/2015 [id number] PRODUCT DESCRIPTION 08/13/2015 -1 RED BLOOD CELLS ADENINE-SALINE ADDED LEUKOCYT PRODUCT UNIT # 08/13/2015 [id number] UNIT ABO 08/13/2015 A UNIT RH 08/13/2015 POS STATUS OF UNIT 08/13/2015 Presumed Transfused EXPIRATION DATE 08/13/[id number] BLOOD TYPE BARCODE 08/13/2015 6200 BLOOD PRODUCT CODE 08/13/2015 [id number] CO-MORBIDITY INDEX Is there a history of mechanical ventilation? no Is there a history of proven invasive fungal infection? no Were there clinically significant co-existing diseases or organ impairment at the time of p atient assessment prior to preparative regimen? no Comorbidities Definitions HCT-CI weighted scores Actual lab Values/Comments Arrhythmia Any h/o Atrial fibrillation or flutter, sick sinus syndrome and ventricular arrh ythmias requiring treatment 1 0 Cardiac Any h/o Coronary artery disease, congestive heart failure, myocardial infarction, o r EF <= 50% pre tx 1 0 Inflammatory bowel disease H/o Crohn's disease or ulcerative colitis w/treatment 1 0 Diabetes Requiring treatment with insulin or oral hypoglycemic agents w/in last 4 weeks, bu t not diet alone 1 0 Cerebro-vascular accident H/o Transient ischemic attack or cerebro-vascular accident 1 0 Psychiatric Disturbance Depression/anxiety requiring psychiatric consult or treatment in in st 4 weeks 1 1 Hepatic - mild Chronic hepatitis, or any h/o Hep B/Hep C infx, or bilirubin > ULN - 1.[address], or AST/ALT > ULN - 2.5 x ULN 1 0 Obesity Patients with body mass index > 35 kg/m 1 0 Infection Requiring continuation of anti-microbial treatment after day 0 1 0 Rheumatologic SLE, RA, polymyositis, mixed CTD polymyalgia rheumatica 2 0 Peptic ulcer Any h/o requiring treatment and confirmed by endoscopy 2 0 Moderate/severe renal Serum creatinine > 2 mg/dl, on dialysis, or prior renal transplantati on 2 0 Moderate Pulmonary DLCO Adj and/or FEV1 > 66 - 80% or dyspnea on slight activity 2 2 Prior solid tumor Treated at any time point in patient's past history, excluding non-melano ma skin cancer and prior Hem Maligs 3 0 Heart Valve disease Except mitral valve prolapse 3 0 Severe pulmonary DLCO Adj and/or FEV1 <= 65% or dyspnea at rest or requiring oxygen 3 0 Moderate/severe hepatic Liver cirrhosis, bilirubin > 1.5 x ULN or AST/ALT > 2.5 x ULN 3 0 Karnofsky Score: 90% Able to carry on normal activity, minor signs or symptoms of active disease Khurram Kelly is a 25 y.o. male with a malignancy that is currently incurable by standard chemotherapeutic approaches. To date, the only modality that offers a chance at long-term survival and potential cure is allogeneic hematopoietic stem cell transplantation. Based upon my assessment of disease risk and comorbidities, Khurram is a suitable hank te for allogeneic HCT. By registry data, this patient has an approximately 30% chance of lo ng-term survival with a transplant approach, which is considerably greater than non-transpla nt alternatives available today. We had a detailed discussion about the rationale for transplant in this situation, requirem ents for proceeding, which include insurance approval, identification of an available, didi quinn HLA-matched stem cell donor, approval by the [facility] BMT patient/donor selection committee, availability of a full-time caregiver and residence within 30 minutes of [facility] through at [facility] day +100 post transplant, and compliance with the immunosuppression and supportive care medication regimen prescribed by providers at [facility]. We had a vasile discussion about the risks of the transplant itself, including toxicities fr om the preparative regimen, severe infections, the need for red blood cell and platelet solorzano sfusion support, the risk of graft rejection, the risk of acute and chronic xcfzh-bmiucw-ivw t disease, the need for immunosuppressive medications, the potential for severe organ toxici ty including lungs, liver, skin, and kidneys, the possibility of long-term disability, and t he risk of due to complications of the transplant. We discussed the risk of disease r elapse despite going forward with a transplant. Khurram expressed understanding of these r isks. 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 He is s/p treatment with 3+7, with residual disease, then HAM re-induction. Marrow after re-induc tion with hypocellular marrow (15%) with ~80% blasts/promonocytes c/w residual disease. 3rd line treatment with 10 day course of decitabine with persistent disease in a hypocellular m arrow at the time of pre-transplant testing. Transplant plan: Donor: 30 yo international male, DRB1 MM (with MM in GVHD direction) and permissive DRB1 M M (in GVHD direction), A+CMV+ Patient: A+, CMV+ Conditioning therapy consists of: Busulfan 1 mg/kg/dose PO every 6 hours on days -7, -6, - 5 and -4; he will receive clonazepam and levetiracetam as prophylaxis for busulfan-induced s eizures. Pt will then receive Cyclophosphamide 60 mg/kg IV over 2 hours daily on days -3 and -2. With this, he will receive mesna 60 mg/kg/day as a continuous infusion beginning just prior to the first dose of cytoxan and completing 24 hours after the second dose. IV hydrat ion, premeds and antiemetics as ordered. Monitor for acute toxicities. Khurram is schedul ed for infusion of PBSC product on 08/26/15. Reviewed risks of TRM, appx 20%, risk of acute GVHD 50-75%, risk of chronic GVHD 50%, risk of relapse 50%, manager terminal OS was NOT discussed in specific detail with the patient (appx30%) as he knows that the chances of prison survival were slim and he did not want to hear th e number. Plan for post-transplant hypomethylating agent to begin by day 60, with plans for 6 cycles based on response. Very difficult situation overall, did review the generally poor prognosis, and alternative options (outpt chemo, clinical trial enrollment), at this time Khurram wishes to proceed wi th transplant and while there is high risk for relapse or life threatening complications, I think it is a reasonable option in a very bad situation. GVHD prophylaxis: Methotrexate, days 1,3,6,11 Tacrolimus to begin day -2, goal level of 5-10 Immunocompromised host: Khurram is currently on prophylactic acyclovir and posaconazole a long with levofloxacin for gram negative prophylaxis as he is neutropenic. - Acyclovir 800 mg PO daily - Posaconazole 300 mg PO daily - Levofloxacin 500 mg PO daily Will change upon admission -valtrex for viral prophylaxis -fluconazole to begin day 0 for fungal protection Cytopenias -transfuse with leukocyte reduced irradiated blood products for platelets <10, hct <21% or symptomatic Regimen related toxicity -scheduled anti-emetics and prn -prn bowel regimen Pulmonary dysfunction -likely in setting of history of smoking and incomplete correction for anemia History of Parotiditis -CT without evidence of residual abnormality as part of pre-transplant testing -pt has NOT had dental work completed in setting of profound cytopenias, lack of adequate d ental insurance, and urgency of transplant FEN -replete electrolytes per procotol -may need appetite stimulant Depression/Anxiety -tolerating zoloft without complication, will continue as inpt Access -plan for Neostar placement prior to admission -will receive platelets prior Yari Garcia MD, MS Emergency Workertranslational specialist [facility] [address] [place] [address] I spent 60 minutes in direct contact with Khurram, greater than 50% of which was spent in counseling and coordination of [...] 2018 | Visit | Malignancy | [address] [facility] | | | | | | [address] | | | | | | [place], [place] | | | | | | [address] | | | | | | [phone] | | | | | | | | +--------+---------+ + + + documented as of this encounter Visit Diagnoses + + | Diagnosis | + + | Acute myeloid leukemia (AML), M4 (HCC) - Primary | + + documented in this encounter"
--- OUTSIDE RECORDS SUMMARY | ~2019-05-17 | XMS | Encounter Summary ---
Demographics + + + | Address | [address] | | | [place] [address] | + + + | Home Phone [...] Providers + +------+ + | Care Manager Media Name | Role | Phone | + +------+ + | Pending Pcp Addition | PCP | Unavailable | + +------+ + Encounter Details +--------+ + + + + | Date | Type | Department | Care Team | Description | +--------+ + + + + | 03/30/ | Hospital | Diagnostic | | | | 2015 | Encounter | Radiology at [facility] | | | | | | [address] | | | | | | [address] Mailcode: | | | | | | [address] | | | | | | [place], | | | | | | [place] [address] | | | | | | [phone] | | | +--------+ + + + [...] [address] | | | | | | [place], [place] | | | | | | [address] | | | | | | [phone] | | | | | | | | +--------+---------+ + + + documented as of this encounter Procedures + +--------+ + + + | Procedure Name | Priori | Date/Time | Associated Diagnosis | Comments | | | ty | | | | + +--------+ + + + | X-RAY HIPS BILAT 2 | Routin | 03/30/2016 | Acute myeloid | Results for this | | VIEWS WITH AP PELVIS | e | 11:22 AM | leukemia (AML), M4 | procedure are in the | | | | PDT | ([facility])- primary | results section. | | | [...] | | + +---------+ + + | [facility] DEPARTMENT OF | | | | | RADIOLOGY | | | | + +---------+ + + documented in this encounter Visit Diagnoses + + | Diagnosis | + + | Acute myeloid leukemia (AML), M4 (HCC)- primary induction failure | + + documented in this encounter"
--- OUTSIDE RECORDS SUMMARY | ~2019-05-17 | XMS | Encounter Summary ---
Demographics + + + | Address | [address] | | | [place] [address] | + + + | Home Phone [...] Team Providers + +------+ + | Care Solar Installation Crew Supervisor Name | Role | Phone | [...] | | | | | remission | [address] | [id number] | | | | | Procedures | Phone: | [place] | | | | | [place] | [phone] | Pavilion | | | | | AZACITIDINE | Fax: | [place], [place] | | | | | INJECTION, 1 | [phone] | [address] | | | | | [place] | | Phone: | | | | | [facility] | | [phone] | | | | | INFSN,1 HR | | Fax: | | | | | [place] [facility] | | [phone] | | | | | INFSN,ADDL | [...] | | | | | | [facility] [address] | | | | | | [place], | | | | | | [place] [address] | | | | | | [phone] | | | +--------+ + + + [...] at least 2 L oral fluids at [facility] e. Chemotherapy was checked by 2 RNs. [...] [address] | | | | | | [place], [place] | | | | | | [address] | | | | | | [phone] | | | | | | | [...]
--- OUTSIDE RECORDS SUMMARY | ~2019-05-17 | XMS | Encounter Summary ---
Demographics + + + | Address | [address] | | | [place] [address] | + + + | Home Phone [...] Team Providers + +------+ + | Care Underwriting Clerk Name | Role | Phone | + +------+ + | No Pcp Per Patient | PCP | Unavailable | + +------+ + Encounter Details +--------+ + + + + | Date | Type | Department | Care Team | Description | +--------+ + + + + | 03/15/ | Hospital | Radiology/Imaging | Yari Garcia MD | | | 2017 | Encounter | Lab at [facility] [address] | [address] [facility] | | | | | [address]ell Mailcode: | [address] | | | | | [address] | [place], [place] | | | | | [facility] Healing, | [address] | | | | | [address] | [phone] | | | | | Floor [place], [place] | | | | | | [address] | | | | | | [phone] | | | +--------+ + + + [...] | | | | | | [place], [place] | | | | | | [address] | | | | | | [phone] | | | | | | | | +--------+---------+ + + + documented as of this encounter Procedures + +--------+ + + + | Procedure Name | Priori | Date/Time | Associated Diagnosis | Comments | | | ty | | | | + +--------+ + + + | X-RAY PELVIS 1 VIEW | Routin | 03/15/2017 | Acute | Results for this | | | e | 11:15 AM | myelomonocytic | procedure are in the | | | | PDT | leukemia in | results section. 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
--- OUTSIDE RECORDS SUMMARY | ~2019-05-17 | XMS | Encounter Summary ---
Demographics + + + | Address | [address] | | | [place] [address] | + + + | Home Phone [...] Team Providers + +------+ + | Care Conference Center Manager Name | Role | Phone | [...] | | | | | Encounter | [place], [place] | [address] [facility] | | | | | for | [address] | Hospital | | | | | long-term | Phone: | [place], [place] | | | | | current use | [phone] | [address] | | | | | of | Fax: | Phone: | | | | | medication | [phone] | [phone] | | | | | Procedures | | Fax: | | | | | CT SINUS WO | | [phone] | | | | | CONTRAST | | | | | | | ROUTINE | | | | | | | ([facility]MAR[place] | | | | | | | PROTOCOL) | | | | | | | FL CT | | | | | | [...] + + + + | 08/09/ | Hospital | Diagnostic Imaging | | | | 2015 | Encounter | Services at [facility] | | | | | | [address] | | | | | | [place] Mailcode: | | | | | | [address] [facility] | | | | | | [place], [place] | | | | | | [address] | | | | | | [phone] | | | +--------+ + + + [...] Rd | | | | | | [place], [place] | | | | | | [address] | | | | | | [phone] | | | | | | | | +--------+---------+ + + + documented as of this encounter Visit Diagnoses + + | Diagnosis | + + | AML (acute myeloid leukemia) (HCC) Acute myeloid leukemia, without mention of having | | achieved remission | + + | Encounter for long-term current use of medication | + + documented in this encounter"
--- OUTSIDE RECORDS SUMMARY | ~2019-05-17 | XMS | Encounter Summary ---
Demographics + + + | Address | [address] | | | [place] [address] | + + + | Home Phone [...] Team Providers + +------+ + | Care Basket Bottom Machine Operator Name | Role | Phone [...] | | | | | achieved | [place], [place] | [id number] | | | | | remission | [address] | [place] | | | | | | Phone: | [facility] | | | | | Procedures | [phone] | [place], [place] | | | | | Post BMT | Fax: | [phone] | | | | | Auth to | [phone] | Phone: | | | | | included | | [phone] | | | | | facility, | | Fax: | | | | | diagnostics, | | [phone] | | | | | office | | | | | | | visits and | | | | | | | surgery | | | +--------+---------+ + + + + Encounter Details +--------+---------+ + + + | Date | Type | Department | Care Team | Description | +--------+---------+ + + + | 10/02/ | Office | Center for | Aspen Cummins FNP | S/P allogeneic bone | | 2017 | Visit | Hematologic | [address] [facility] | marrow transplant | | | | Malignancies at | [facility] | (HCC) (Primary Dx) | | | | [facility] | [place], [place] | | | | | [address] | [address] | | | | | [address] Mailcode: | [phone] | | | | | [facility] [place] | | | | | | [facility] [place], | | | | | | [place] [address] | | | | | | [phone] | | | +--------+---------+ + + + [...] + + + | Blood Pressure | 94/64 | 10/02/2016 9:23 AM | | | | | PDT | | + + + + + | Pulse | 81 | 10/02/2016 9:23 AM | | | | | PDT | | + + + + + | Temperature | 36.3 C (97.3 F) | 10/02/2016 9:23 AM | | | | | PDT | | + + + + + | Respiratory Rate | 16 | 10/02/2016 9:23 AM | | | | | PDT | | + + + + + | Oxygen Saturation | 100% | 10/02/2016 9:23 AM | | | | | PDT | | + + + + + | Inhaled Oxygen | - | - | | | Concentration | | | | + + + + + | Weight | 77.3 kg (170 lb 6.7 | 10/02/2016 9:23 AM | | | | oz) | PDT | | + + + + + | Height | - | - | | + + + + + | Body Mass Index | 21.3 | 09/20/2016 10:53 AM | | | | | PDT | | + + + + + documented in this encounter Progress Notes Aspen Cummins FNP - 10/02/2016 9:15 AM PDT 10/02/2016 [facility] MD: Yari Garcia MD Primary Oncologist: Yari Garcia MD Diagnosis: AMML, primary refractory Transplant Date: 08/27/15 Donor: MM URD (DPB1 permissive antigen mismatch, male, [id number]) Identifying Data: Khurram Kelly is a 26 [...] his L ankle. He was evaluated at [facility] ED on 06/[address] angiogram [...] myelomonocytic leukemia. He was referred to [facility] for further evaluation and man agement of his newly dx'd AML. Pt was admitted to [facility] on 05/26/15. Peripheral blood was sent [...] CD34, variable CD56, variable CD117, and dim TZ123-nctkk mickey; promonocyte immunophenotype (70% by flow): CD11b, [...] total hip arthroplasty. He is currently day +402 s/p transplant, s/p 6 cycles of azacitidine and returns to clinic today for scheduled follow-up. Interim History: Khurram was most recently evaluated in [facility] by me on 09/25/16. At that time, he presented with c/o new onset rash. He was s tarted on MMF ER 360 mg po BID, continued tacrolimus BID and beclomethasone QID. Nausea has resolved, feels he's eating better overall. Eating at least once, sometimes twice daily. P O fluid intake is adequate, mostly water and tea. Continues with rash, now scaling to shoul ders. Not itchy. Hip pain well controlled with oxycontin BID. Not requiring breakthrough rod lgesics. Continues with c/o anxiety. Feels it's hard to get passed the transplant, waiting for some thing bad to happen. Has thought about going to Transitions or a support group but is worrie d about what they will bring up. States it's hard to see other people going through treatmen t. Review of Systems Constitutional: Negative for chills, fever and malaise/fatigue. HENT: Negative for headaches, congestion and sore throat. Respiratory: Negative for cough and shortness of breath. Cardiovascular: Negative for chest pain and leg swelling. Gastrointestinal: Negative for abdominal pain, diarrhea, nausea and vomiting. Genitourinary: Negative for dysuria. Musculoskeletal: Positive for joint pain (L knee). Negative for falls and myalgias. Skin: Positive for rash. Negative for itching. Neurological: Positive for dizziness (intermittent postural lightheadedness). Negative for tingling, tremors and weakness. All [...] this visit. No Known Allergies Filed Vitals: 10/02/2016 9:23 AM Weight: 77.3 kg (170 lb 6.7 oz) BP: 94/64 Pulse: 81 Temp: 36.3 C (97.3 F) TempSrc: Oral Resp: 16 SpO2: 100% PainSc: 02 - Mild PainLoc: Hip BMI: 21.3 kg/(m^2) Physical Exam Constitutional: He is well-developed, [...] back with erythemato us papular rash to BUE, scaling to shoulders) noted. Psychiatric: Mood and affect normal. Vitals reviewed. Lab Results Component Value Date WBC 7.94 10/02/2016 HB 12.4 10/02/2016 HCT 37.2 10/02/2016 PLT 259 10/02/2016 MCV 94.4 10/02/2016 RDW 46.1 10/02/2016 Lab Results Component Value Date BICARB 28 10/02/2016 TBILI 0.4 10/02/2016 CA 9.5 10/02/2016 CL 105 10/02/2016 CR 0.86 10/02/2016 GLU 102 (H) 10/02/2016 AP 140 (H) 10/02/2016 TP 6.4 10/02/2016 BUN 8 10/02/2016 ALB 3.4 (L) 10/02/2016 AST 35 10/02/2016 NA 140 10/02/2016 K 3.9 10/02/2016 ALT 42 10/02/2016 Assessment/Plan: 1. 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 Peripheral blood counts remain WNL, no evidence of disease by peripheral smear. His most recent marrow studies completed 08/31/16 showed a normocellular marrow (30%) with trilineage hematopoiesis, marrow eosinophilia (~15%) and < 2% myeloid blasts. Karyoty pe 46,XY[20]. VNTR showed no detectable host cells. 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 --> continue CBC q2-4 weeks and prn --> no additional marrow studies indicated providing peripheral counts remain stable 2. 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 He initial ly responded but flared during taper. He also developed low-level nausea and abd discomfort concerning for GvHD, empirically treated with oral non-absorbables with resolution. He had t apered prednisone to 10 mg po daily when he developed a rash for which he was seen in the ED in [place] in late 01/21. Prednisone was increased back [...] off bude sonide, prednisone as of 07/13/16. Chronic mild nausea, increased in late 07/25, with low leve l transaminitis suspicious for recurrent GvHD. Beclomethasone restarted 08/09/16 with initial resolution of N/V. Presented on 09/25/16 with recurrent N/V, increasing rash. MMF ER started at 360 mg po BID, therapeutic tacrolimus. N/V resolved, rash persists with new areas of sca ling. Of note, no evidence of FLORESITA by PFTs on 09/01/16. --> continue tacrolimus 1 mg bid --> no dose adjustment as pt took his dose this morning --> increase mycophenolate ER to 720 mg po BID --> continue beclomethasone 1 mg po QID --> continue triamcinolone ointment BID --> due to AVN, would prefer not to restart steroids unless pt has bx proven GvHD Ped Pre Spirometry Latest Ref Rng & Units 09/01/2016 08/09/2015 FVC PRE 6.30 L 6.71 6.98 FVC PRE (%REF) % 106 110 FEV1 PRE 5.13 L 5.28 5.13 FEV1 PRE (%REF) % 102 99 FEV1/FVC PRE 83 % 79 73 FEV1/FVC PRE (%REF) % 94 88 JRF92-87% PRE 5.09 L/sec 4.64 4.12 XDX53-27% PRE (%REF) % 91 79 PEF PRE 11.24 L/sec 11.12 8.89 PEF PRE (%REF) % 98 79 3. Fluid, Electrolyte and Nutrition: Appetite is improving, feels he's eating better overal l with adequate po fluid intake. No further c/o N/V. Weight down 38# over the last three mo nths, stable over the last week. His electrolytes are reviewed and are within acceptable jules its. --> continue to eat well with several [...] device. Pain well controlled with oxycontin BID. Notes new intermittent pain in his L knee, concerned this may be related to his recent hip surgery. --> continue to f/u with Ortho per their recommendations; scheduled with Lobo Jeffers MD o n 10/18/16 5. Psychosocial: Pt reports ongoing anxiety related to his dx and treatment. States he's h ad a hard time moving forward with his life. Continues xanax with relief. Does not feel an tidepressants were a good option for him; states they made him feel "flat". Has thought abo ut attending an AYA support group but states he's concerned about issues they may bring up. Pt's is very interested in attending. --> again encouraged pt/ to participate in supports groups, etc. 6. Follow up --> RTC to f/u with Yari Garcia MD on , 10/12/16, sooner prn --> labs at [facility] prior [facility] [address] Mailcode: [address] [place] [phone] documented in this enc ounter Plan of [...] Rd | | | | | | [place], [place] | | | | | | [address] | | | | | | [phone] | | | | | | | | +--------+---------+ + + + documented as of this encounter Results LDH TOTAL, PLASMA (10/12/2016 11:27 AM PDT) + +---------+ + + + | Component | Value | Ref Range | Performed | Pathologist | | | | | At | Signature | + +---------+ + + + | LD TOTAL, | 124 | <=250 U/L | [facility] | | [...] [facility] | [address] | [place] [address] | | | SERVICES, CORE | [address] | | | + + + + + BILIRUBIN DIRECT (10/12/2016 11:27 AM PDT) + +---------+ + + + [...] + + + + | [facility] | [address] | [place] [address] | | | SERVICES, CORE | [address] | | | + + + + + URIC ACID, PLASMA (10/12/2016 11:27 AM PDT) + +-------+ + + + | Component | Value | Ref Range | Performed | Pathologist | | | | | At | Signature | + +-------+ + + + | URIC ACID, | 3.7 | 3.7 - 8.0 mg/dL | [facility] [...] + + | [facility] | [address] | [place] [address] | | | SERVICES, CORE | [address] | | | + + + + + PHOSPHORUS, PLASMA (10/12/2016 11:27 AM PDT) + +---------+ + + + | Component | Value | Ref Range | Performed | Pathologist | | | | | At | Signature | + +---------+ + + + | PHOSPHORUS, | 2.3 (L) | 2.4 - 4.7 mg/dL | [facility] [...] + + + + | [facility] | [address] | [place] [address] | | | SERVICES, CORE | [address] | | | + + + + + MAGNESIUM, PLASMA (10/12/2016 11:27 AM PDT) + +-------+ + + + [...] + + + + | [facility] | [address] | [place] [address] | | | SERVICES, CORE | [address] | | | + + + + + COMPLETE METABOLIC SET (NA,K,CL,CO2,BUN,CREAT,GLUC,CA,AST,ALT,BILI TOTAL,ALK PHOS,ALB,PROT TOTAL) (10/12/2016 11:27 AM PDT) + +---------+ + + + | Component | Value | Ref Range | Performed | Pathologist | | | | | At | Signature | + +---------+ + + + | GLUCOSE, | 114 (H) | 60 - 99 mg/dL | [...] +---------+ + + + | CREATININE | 0.73 | 0.70 - 1.30 | [facility] | | | PLASMA | | mg/dL | LABORATORY | | | (LAB) | | | SERVICES, | | | | | | CORE | | + +---------+ + + + | EGFR | >60 | >60 mL/min | [facility] | | | - | | | LABORATORY | | | [place] | | | SERVICES, | | | [...] +---------+ + + + | POTASSIUM, | 3.3 (L) | 3.4 - 5.0 | [facility] | [...] +---------+ + + + | CALCIUM(ALB | 9.1 | 8.6 - 10.2 | [...] + + + | ALK PHOS | 110 | 53 - 128 U/L | [facility] [...] + + + | ANION GAP | 10 | mmol/L | [facility] | | | | | | LABORATORY | | | | | | SERVICES, | | | | | | CORE | | + +---------+ + + + | ANION | 10 | 4 - 11 mmol/L | [facility] [...] + + + + | [facility] | [address] [facility] | [place] [address] | | | [address]A [address]ARIF | [address] | | | + + + + + documented in this encounter Visit Diagnoses + + | Diagnosis | + + | 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HCC) - Primary Bone marrow replaced by | | transplant | + + documented in this encounter
--- OUTSIDE RECORDS SUMMARY | ~2019-05-17 | XMS | Encounter Summary ---
Demographics + + + | Address | [address] | | | [place] [address] | + + + | Home Phone [...] Team Providers + +------+ + | Care Waste Minimization Technician Name | Role | Phone | [...] | | | | | Malignancies at [facility] | [address] | | | | | [address] | [place], [place] | | | | | [address] Mailcode: | [address] | | | | | [facility] | [phone] | | | | | [place], | | | | | | [place] [address] | | | | | | [phone] | | | +--------+ + + + [...] Rd | | | | | | [place], [place] | | | | | | [address] | | | | | | [phone] | | | | | | | | +--------+---------+ + + + documented as of this encounter Visit Diagnoses Not on filedocumented in this encounter"
--- OUTSIDE RECORDS SUMMARY | ~2019-05-17 | XMS | Encounter Summary ---
Demographics + + + | Address | [address] | | | [place] [address] | + + + | Home Phone [...] Providers + +------+ + | Care Business Information Manager Name | Role | Phone | + +------+ + | Pending Pcp Addition | PCP | Unavailable | + +------+ + Reason for Visit + + + | Reason | Comments | + + + | N&V - Nausea and | | | vomiting | | + + + | Lightheaded | occ | + + + Encounter Details +--------+ + + + + | Date | Type | Department | Care Team | Description | +--------+ + + + + | 08/08/ | Telephone | Center for | Aspen Cummins FNP | N&V - Nausea and | | 2017 | | Hematologic | [address] | vomiting; | | | | Malignancies at | [address] | Lightheaded (occ) | | | | [facility] | [place], [place] | | | | | [address] [facility] [address] | [address] | | | | | [address] Mailcode: | [phone] | | | | | [facility] [address] | | | | | | [facility] [place], | | | | | | [place] [address] | | | | | | [phone] | | | +--------+ + + + [...] | | | | | | [place], [place] | | | | | | [address] | | | | | | [phone] | | | | | | | | +--------+---------+ + + + documented as of this encounter Visit Diagnoses Not on filedocumented in this encounter"
--- OUTSIDE RECORDS SUMMARY | ~2019-05-17 | XMS | Encounter Summary ---
Demographics + + + | Address | [address] | | | [place] [address] | + + + | Home Phone [...] Team Providers + +------+ + | Care Auto Rebuilder Name | Role | Phone | + [...] | | | | | achieved | [place], [place] | [id number] | | | | | remission | [address] | [facility] | | | | | | Phone: | [facility] | | | | | Procedures | [phone] | [place], [place] | | | | | Post BMT | Fax: | [address] | | | | | Auth to | [phone] | Phone: | | | | | included | | [phone] | | | | | facility, | | Fax: | | | | | diagnostics, | | [phone] | | | | | office | | | | | | | visits and | | | | | | | surgery | | | +--------+---------+ + + + + Encounter Details +--------+---------+ + + + | Date | Type | Department | Care Team | Description | +--------+---------+ + + + | 09/13/ | Office | Center for | Lizzie Leavitt, | Acute myeloid | | 2016 | Visit | Hematologic | [place] [address] [facility] | leukemia (AML), M4 | | | | Malignancies at | Jabier Wally [place] | ([facility])- primary | | | | [facility] | [place], [place] | induction failure | | | | [address] [facility] | [address] | (Primary Dx); S/P | | | | Wally Burger Mailcode: | [phone] | allogeneic bone | | | | [id number] | | marrow transplant | | | | [facility] [place], | | ([facility]) | | | | [place] [address] | | | | | | [phone] | | | +--------+---------+ + + + [...] + + + | Blood Pressure | 92/61 | 09/14/2015 12:55 PM | | | | | PST | | + + + + + | Pulse | 83 | 09/14/2015 12:55 PM | | | | | PST | | + + + + + | Temperature | 36.8 C (98.2 F) | 09/14/2015 12:55 PM | | | | | PST | | + + + + + | Respiratory Rate | 16 | 09/14/2015 12:55 PM | | | | | PST | | + + + + + | Oxygen Saturation | 99% | 09/14/2015 12:55 PM | | | | | PST | | + + + + + | Inhaled Oxygen | - | - | | | Concentration | | | | + + + + + | Weight | 77.4 kg (170 lb 10.2 | 09/14/2015 12:55 PM | | | | oz) | PST | | + + + + + | Height | - | - | | + + + + + | Body Mass Index | 22.06 | 08/18/2015 4:35 PM | | | | | PST | | + + + + + documented in this encounter Patient Instructions Patient Instructions Em Saunders PA-C - 09/14/2015 8:27 AM PST-Take your temperature regularly (3-4 x daily) and to call immediately for a temperature of 100.4 or greater. -Decrease amlodipine to 2.5 mg (0.5 tablet) once daily. -Start using Triamcinolone 0.1% cream three times daily on rash over abdomen and lower back . A prescription has been sent to the pharmacy in [facility]. -Continue to push fluid intake with goal of at least 2 L of PO fluids per day. documented in this encounter Progress Notes Em Saunders PA-C - 09/14/2015 5:50 PM PSTFormatting of this note might be different f rom the original. 09/14/2015 [facility] Physician: Yari Garcia MD Local Oncologist: Yari Garcia MD PCP: Pending Pcp ADDITION Hematologic Malignancy: Primary refractory AML Conditioning regimen: tBuCy Date of transplant: 08/27/2015 (two day 0s) Donor: MM URD (DPB1 permissive antigen mismatch, male, [id number]) Hematologic History: Khurram Kelly is a 25 [...] his L ankle. He was evaluated at [place]' ED on 06/[address] angiogram negative [...] acute myelomonocytic leukemia. He was referred to [facility] for further evaluation and man agement of his newly dx'd AML. Pt was admitted to [facility] on 05/26/15. Peripheral blood was [...] CD34, variable CD56, variable CD117, and dim [id number]-khgra mickey; promonocyte immunophenotype (70% by flow): CD11b, [...] of primary refractory AML, currently d ay +18, s/p tBuCy conditioned MM URD SCT. Interval History: presents to clinic today for his routine scheduled visit. He is accompanied by his who is his caregiver in clinic today. He discharged from the hospital yesterday. He feels that he has done well since discharge. He did not drink as much fluid yesterday wi th discharge and getting settled home, but feels he drank at least 1.5 L. He was consistentl y drinking 2L of fluid per day in the hospital and feels he will be successful with that at home. He feels hungry and thirsty, but food still tastes bad. He is taking small snacks duri ng the day and some protein shakes. Most foods don't sound good right now. He continues to h ave loose stools, about 1-2 per day. He has noticed a new rash until the physical exam and n otes the rash on his stomach is likely new from how it looked in the hospital. The rash does not itch or bother him. His blood pressure is on the low side, but he does not feel lighthe aded or dizzy. Review of Systems: General: fatigue Denies fevers, chills, weight loss or sweats. [...] Cardiovascular: No chest pain,lightheadedness,shortness of breath. Gastrointestinal: +loose stools Denies indigestion, vomiting, nausea, constipation, abdomin al pain, bloody stools or dark tarry stools. Skin: +skin rash Psychological: No abnormal anxiety, depression. Remainder of ROS is otherwise negative. Current Medication List Name Sig ACYCLOVIR 800 MG TABLET Take 1 tablet by mouth two times daily. ALPRAZOLAM 0.5 MG TABLET Take 2 tablets by mouth three times daily as needed for anxiety. AMLODIPINE 5 MG TABLET Take one-half tablet by mouth once daily. FLUCONAZOLE 200 MG TABLET Take 2 tablets by mouth once daily. LACTULOSE 10 GRAM ORAL PACKET Take 10 grams (one packet) by mouth twice daily as needed (co nstipation). OMEPRAZOLE 20 MG CAPSULE,DELAYED RELEASE Take 1 capsule by mouth before breakfast. ONDANSETRON HCL 4 MG TABLET Take 1 to 2 tablets by mouth every twelve hours as needed for n ausea/vomiting. OXYCODONE 15 MG TABLET Take 1 to 2 tablets by mouth every four hours as needed for moderate pain. PROCHLORPERAZINE MALEATE 5 MG TABLET Take 1 tablet by mouth every six hours as needed for n ausea/vomiting. Max dose: 40 mg/day SENNOSIDES-DOCUSATE SODIUM 8.6 MG-50 MG TABLET Take 1 tablet by mouth twice daily as needed (constipation). SERTRALINE 25 MG TABLET Take 1 tablet by mouth once daily. Indications: Anxiety with Depres cricket TACROLIMUS 0.5 MG CAPSULE Your current dose is 2mg twice daily. Combine the 1mg and 0.5mg p ills to make the correct dose. The dose will change based on your blood levels. TACROLIMUS 1 MG CAPSULE Your current dose is 2mg twice daily. Combine the 1mg and 0.5mg pil ls to make the correct dose. The dose will change based on your blood levels. TRIAMCINOLONE ACETONIDE 0.1 % TOPICAL CREAM Apply to affected area three times daily. Apply thin film to affected areas. URSODIOL 300 MG CAPSULE Take 1 capsule by mouth two times daily for 5 days. Vitals: BP 92/61 | Pulse 83 | Temp (Src) 36.8 C (98.2 F) (Oral) | RR 16 | Wt 77.4 kg (170 lb 10 .2 oz) | SpO2 99% | BMI 22.06 kg/(m^2) Physical Exam: General: This is a male in no acute distress, sitting up in chair. HEENT: Sclerae anicteric. Mucosa pink and moist without erythema or exudate. Skin: Faint maculopapular rash scattered over abdomen and flanks ~15% BSA Chest: Lungs clear to auscultation bilat. Normal effort. CV: RRR, no murmurs. Abdomen: S/NT/ND with NABS. No HSM appreciated. Extremities: Pulses strong and equal bilaterally. No c/c/e. Neuro: Alert and oriented x 3. Grossly nonfocal exam. CVC: Central line is a Neostar catheter w/o induration or inflammation Laboratory Results: CBC with diff: Last 72 hours (or 3 results) Recent Labs 09/11/15231209/12/15232509/14/15 1316 WBC 5.46 9.27 10.4 HB 8.5* 8.6* 9.6* HCT 24.4* 24.9* 27.4* PLT 34* 30* 42* NEUTROPERC 78.6* 74.6* -- LYMPHPERC 7.1* 9.6* -- MONOPERC 8.0 11.4* 19.3* BASOPERC 1.8 0.0 0.3 EOSPERC 0.9* 0.9* 1.3 Chemistries: Last 72 Hours (or 3 results): Recent Labs 09/10/15 23009/11/15231209/12/15 2326 09/14/15 1243 09/14/15 1314 NA 144 143 142 -- 138 K 3.7 3.9 3.9 -- 4.4 CL 113* 109* 109* -- 101 BICARB 21 25 25 -- 26 BUN 22* 19 18 -- 17 CR 0.91 0.94 0.96 -- 1.3 GLU 90 95 121* -- 93 CA 8.1* 8.0* 8.3* -- 9.5 AST 18 22 19 15 -- ALT 28 31 35 33 -- AP 63 83 96 119 -- TBILI 0.5 0.5 0.4 0.4 -- TP 5.8* 6.1* 6.1* 6.8 -- ALB 2.7* 2.9* 3.0* 3.6 -- ANIONGAP 10 9 8 -- -- ANIONALBCOR 13* 11 10 -- -- Hematology: Hematologic Malignancy: Refractory AML Conditioning Regimen: tBuCy Stem cell transplant -Stem Cell product: tolerated MM (DPB1 permissive antigen mismatch) stem cell product on -08/27 (two day 0s) without complications. CD 34 count = 5.96 x 10^6 per kg -BMT Day: +18 Pertinent Diagnostics: -Around day + 30 repeat marrow studies will be completed, per guidelines; BM Bx scheduled f or 09/27/15. CBC reviewed and reveals anemia and thrombocytopenia. Platelet trending up independent of t ransfusion support. 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 Derm biopsy done 08/27/15 showing subtle vacuolar interface dermatitis, the changes are con sistent with eruption of lymphocyte recovery and early mild epzfk-ljdxnj-daax disease. On 09/13, rash involves ~15% BSA. -Advised to start Triamcinolone cream 0.1% TID, rx sent. Prophylaxis/Treatment: -Tacrolimus with levels biweekly and goal 5-10 -Methotrexate 15 mg/m IV on day +1, and 10 mg/m IV on days +3, +6 and +11. Received al l doses in full with leucovorin rescue after day +6 and +11 doses. -No steroids will be used unless develops GvHD. Acute GvHD Staging: Skin: Grade 1 Gut: Grade 0 Liver: Grade 0 Overall stage: 1 HEENT: Conjunctival Injection: right eye. Injection developed ~2 days prior to discharge with no a ssociated discharge or URI symptoms. Evaluated by Ophthalmology and DDx includes infectious causes vs inflammatory (scleritis or anterior uveitis) vs medication induced. Clinical prese ntation seems to be most consistent with inflammatory/uveitic etiology. -Patient to follow up with ophthalmology as an outpatient at [facility], schedule d for 09/15/15 at 10 am. Pulmonary: Pretransplant PFTs completed on 08/09/15 showed FEV1 of 99% predicted, FVC of 11 0% predicted and adjusted DLCO of 82% predicted. No acute issues Cardiovascular: Pretransplant TTE completed on 08/10/15 showed a LVEF of 55-60%. 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 Last C. Diff negative 08/27. Stools remain loose since di audie and having 1-2 soft/loose BMs per day -imodium PRN /Renal: No acute issues Neuro/Psych: Depression -continue Zoloft 25 mg daily Anxiety -continue Xanax 1 mg TID PRN Infectious Disease: No acute issues. Afebrile and no evidence of acute infection at this time. The patient i s reminded to take his temperature regularly (3-4 x daily) and to call immediately for a tem perature of 100.4 or greater. Antiviral: Acyclovir for antiviral prophylaxis. The CMV will be followed weekly for val ctivation by PCR. Lab Results Component Value Date CMVQUANTPCR Undetected 09/12/2015 CMVQUANTPCR Undetected 09/05/2015 CMVQUANTPCR Undetected 08/29/2015 CMVQUANTPCR Undetected 08/22/2015 Antifungal: Fluconazole for antifungal prophylaxis and we will follow weekly Galactomannan assays. Lab Results Component Value Date GALACTO Negative 09/12/2015 PCP proph: Pentamidine IV for PCP prophlaxis given on 09/12/15. Bactrim for PCP coverage will be started between day +30-+40 if the patient does not have a sulfa allergy and their plate lets are >50,000 to be taken until off all imunosuppression. If platelets are low will give Pentamadine until platelets recover. IgG: IgG level will be followed every other week and replaced prn if it falls below 300 . Lab Results Component Value Date IGG 526* 09/04/2015 Fluid/Nutrition/Lytes: Nutrition: Current diet -- low bacteria. Encourage po intake as tolerated with a goal of co nsistently drinking at least 2L calorie containing fluids per day. IV Fluid: None needed today. Lytes: Continue to check chemistries twice weekly. Replace per supportive care protocol. Plan: -No tacrolimus check today as patient had level done yesterday prior to discharge from [facility]. Next tacro trough to be drawn on Saturday 09/16. -Decrease amlodipine to 2.5 mg (0.5 tablet) once daily. -Started Triamcinolone 0.1% cream three times daily for rash over abdomen and lower back. -Return to clinic 09/17/15 to see me, sooner prn. [facility] AT [address] Mailcode: [id number] [id number] documented in this encounter Plan of Treatment [...] 2019 | Visit | Malignancy | [address] [facility] | | | | | | [address] | | | | | | [place], [place] | | | | | | [address] | | | | | | [phone] | | | | | | | | +--------+---------+ + + + documented as of this encounter Results CBC+DIFF,POC (09/17/2015 11:32 AM PST) + + + + + [...] + + + | RBC POC | 3.33 (L) | 4.50 - 6.00 | [facility] - | | | | | 10*6/uL | [facility] | | | | | | [facility] | | | | | | OF CARE | | | | | | TESTS | | + + + + + + | HGB POC | 9.9 (L) | 13.5 - 17.5 | [facility] - | | | | | g/dL | [facility] | | | | | | [facility] | | | | | | OF CARE | | | | | | TESTS | | + + + + + + | HCT POC | 28.6 (L) | 41.0 - 53.0 % | [facility] - | | | | | | [facility] | | | | | | [facility] | | | | | | OF CARE | | | | | | TESTS | | + + + + + + | MCV POC | 85.9 | 80.0 - 96.0 fL | [facility] - | | | | | | [facility] | | | | | | [facility] | | | | | | OF CARE | | | | | | TESTS | | + + + + + + | MCH POC | 29.7 | 28.5 - 32.3 pg | [facility] - | | | | | | [facility] | | | | | | [facility], POINT | | | | | | OF CARE | | | | | | TESTS | | + + + + + + | MCHC POC | 34.6 | 33.0 - 35.5 | [facility] - | | | | | g/dL | [facility] | | | | | | [facility], POINT | | | | | | OF CARE | | | | | | TESTS | | + + + + + + | RDW SD, POC | 39.8 | 35.1 - 46.3 fL | [facility] - | | | | | | [facility] | | | | | | [facility] | | | | | | OF CARE | | | | | | TESTS | | + + + + + + | PLT POC | 104 (L) | 150 - 400 | [facility] - | | | | | 10*3/uL | [facility] | | | | | | [facility] | | | | | | OF CARE | | | | | | TESTS | | + + + + + + | MPV POC | 9.5 (L) | 9.7 - 12.3 fL | [facility] - | | | | | | [facility] | | | | | | [facility] | | | | | | OF CARE | | | | | | TESTS | | + + + + + + | NEUTROPHIL% | 65.4 | 50.0 - 70.0 % | [facility] - | | | POC | | | [facility] | | | | | | [facility] | | | | | | OF CARE | | | | | | TESTS | | + + + + + + | LYMPH% POC | 12.7 (L) | 18 - 42 % | [facility] - | | | | | | [facility] | | | | | | [facility] | | | | | | OF CARE | | | | | | TESTS | | + + + + + + | MONO %, POC | 18.2 (H) | 3.5 - 9.0 % | [facility] - | | | | | | [facility] | | | | | | [facility] | | | | | | OF CARE | | | | | | TESTS | | + + + + + + | EOS %, POC | 3.2 (H) | 1.0 - 3.0 [...] + + + + | NEUTROPHIL# | 4.3 | 1.8 - 7.7 | [facility] - [...] [facility] | [address] | [place], [place] | | | RUTHIE CARTER OF KRISTA | [facility] | [address] | | | TESTS | | | | + + + + + BMP PLUS, POC CHM (09/17/2015 11:30 AM PST) + +---------+ + + + [...] + + + | BUN, POC | 21 (H) | 6 - 20 mg/dL | [...] + + + | LDH, POC | 272 (H) | 0 - 206 U/L | [facility] - | | | | | | [facility] | | | | | | RUTHIE CARTER | | | | | | OF CARE | | | | | | TESTS | | + +---------+ + + + | MAGNESIUM, | 1.8 | 1.8 - 2.5 mg/dL | [facility] | | | POC | | [...] [facility] | [address] | [place], [place] | | | RUTHIE CARTRE OF CARE | [facility] | [address] | | | TESTS | | | | + + + + + PHOSPHORUS, PLASMA (09/17/2015 11:14 AM PST) + +-------+ + + + | Component | Value | Ref Range | Performed | Pathologist | | | | | At | Signature | + +-------+ + + + | PHOSPHORUS, | 4.2 | 2.4 - 4.7 mg/dL | [facility] [...] [facility] | [address] | [place] [address] | | | SERVICES, CORE | [address] | | | + + + + + LIVER SET (AST,ALT,BILI TOTAL,BILI DIRECT,ALK PHOS,ALB,PROT TOTAL) (09/17/2015 11:14 AM PST ) + +---------+ + + [...] + + + | ALK PHOS | 108 | 53 - 128 U/L | [facility] | | | | | | LABORATORY | | | | | | SERVICES, | | | | | | CORE | | + +---------+ + + + | AST(SGOT) | 12 | <=41 U/L | [facility] | | | | | | LABORATORY | | | | | | SERVICES, | | | | | | CORE | | + +---------+ + + + | ALT (SGPT) | 31 | <=60 U/L | [facility] | | [...] [facility] | [address] | [place] [address] | | | SERVICES, CORE | [address] | | | + + + + + TACROLIMUS, WHOLE BLOOD (09/17/2015 11:14 AM PST) + +-------+ + + + | Component | Value | Ref Range | Performed | Pathologist | | | | | At | Signature | + +-------+ + + + | TACROLIMUS | 10.2 | 5.0 - 15.0 | [facility] | [...] | + + + + + | [facility] | [address] | [place] [address] | | | SERVICES, SPECIAL | [place] [...]
--- OUTSIDE RECORDS SUMMARY | ~2019-05-17 | XMS | Encounter Summary ---
Demographics + + + | Address | [address] | | | [place] [address] | + + + | Home Phone [...] Team Providers + +------+ + | Care Credit Card Interviewer Name | Role | Phone | + [...] + + + + | 09/29/ | Telephone | Center for | Em Saunders, | Medication | | 2016 | | Hematologic | PA-C [address] | management | | | | [facility] at [facility] | [address] | | | | | [address] | [place], [place] | | | | | Debi Burger Mailcode: | [address] | | | | | [facility] | [phone] | | | | | [place], | | | | | | [place] [address] | | | | | | [phone] | | | +--------+ + + + [...] | Malignancy | [address] [facility] | | | | | | [address] | | | | | | [place] | | | | | | [address] | | | | | | [phone] | | | | | | | | +--------+---------+ + + + documented as of this encounter Visit Diagnoses Not on filedocumented in this encounter"
--- OUTSIDE RECORDS SUMMARY | ~2019-05-17 | XMS | Encounter Summary ---
Demographics + + + | Address | [address] | | | [place] [address] | + + + | Home Phone [...] Providers + +------+ + | Care Data Modeling Architect Name | Role | Phone | + +------+ + | Zayda Hinton | PCP | | + +------+ + Encounter Details +--------+ + + + + | Date | Type | Department | Care Team | Description | +--------+ + + + + | 10/10/ | Pharmacy | Specialty Pharmacy | | | | 2015 | Visit | Services [address] | | | | | | [address] | | | | | | [place], [place] | | | | | | [address] | | | | | | [phone] | | | +--------+ + + + [...] 2019 | Visit | Malignancy | [address] [facility] | | | | | | [address] | | | | | | [place], [place] | | | | | | [address] | | | | | | [phone] | | | | | | | | +--------+---------+ + + + documented as of this encounter Visit Diagnoses Not on filedocumented in this encounter"
--- OUTSIDE RECORDS SUMMARY | ~2019-05-17 | XMS | Encounter Summary ---
Demographics + + + | Address | [address] | | | [place] [address] | + + + | Home Phone [...] Team Providers + +------+ + | Care Gallery Or Museum Curator Name | Role | Phone | + +------+ + | Zayda Hinton | PCP | | + +------+ + Encounter Details +--------+ + + + + | Date | Type | Department | Care Team | Description | +--------+ + + + + | 12/23/ | Pharmacy | Specialty Pharmacy | | | | 2015 | Visit | Services [address] | | | | | | [address] | | | | | | [place], [place] | | | | | | [address] | | | | | | [phone] | | | +--------+ + + + [...] [address] | | | | | | [place], [place] | | | | | | [address] | | | | | | [phone] | | | | | | | | +--------+---------+ + + + documented as of this encounter Visit Diagnoses Not on filedocumented in this encounter"
--- OUTSIDE RECORDS SUMMARY | ~2019-05-17 | XMS | Encounter Summary ---
Demographics + + + | Address | [address] | | | [place] [address] | + + + | Home Phone | | + + + | Preferred Language | Unknown | + + + | Marital Status | | + + + | Holiness Affiliation | SPI | + + + [...] Providers + +------+ + | Care Health Sciences Department Chair Name | Role | Phone | + +------+ + | Zayda Hinton | PCP | | + +------+ + Encounter Details +--------+ + + + + | Date | Type | Department | Care Team | Description | +--------+ + + + + | 05/28/ | Procedure | 6A [facility] | | | | 2017 | Pass | [facility] | | | | | | Admitting Desk | | | | | | Located on the 9 | | | | | | floor [address] | | | | | | [address] | | | | | | [place], [place] | | | | | | [address] | | | +--------+ + + + [...] [address] | | | | | | [place], [place] | | | | | | [address] | | | | | | [phone] | | | | | | | | +--------+---------+ + + + documented as of this encounter Visit Diagnoses Not on filedocumented in this encounter"
--- OUTSIDE RECORDS SUMMARY | ~2019-05-17 | XMS | Encounter Summary ---
Demographics + + + | Address | [address] | | | [place] [address] | + + + | Home Phone | | + + + | Preferred Language | Unknown | + + + | Marital Status | | + + + | Restorationism Affiliation | SPI | + + + [...] Providers + +------+ + | Care Manager Government Name | Role | Phone | + +------+ + | No Pcp Per Patient | PCP | Unavailable | + +------+ + Reason for Visit + + + | Reason | Comments | + + + | Medical Eye | | | Examination | | + + + Consultation (Urgent) +--------+--------+ + + + + | Status | Reason | Specialty | Diagnoses / | Referred By | Referred To | | | | | Procedures | Contact | Contact | +--------+--------+ + + + + | Closed | | Ophthalmology | Diagnoses | Jose, | Gloria Comp | | | | | S/P | Yari Jones MD | Oph Fac Ch[facility]1 | | | | | allogeneic | [address] | [address] | | | | | bone marrow | [address] | Ave | | | | | transplant | [address] | Mailcode: | | | | | ([facility]) | [place], [place] | [address] | | | | | Procedures | [address] | for Health | | | | | CONSULT TO | Phone: | and Healing, | | | | | OPHTHALMOLOG | [phone] | Building 1, | | | | | Y | Fax: | 11th Floor | | | | | | [phone] | [place], [place] | | | | | | | [address] | | | | | | | Phone: | | | | | | | [phone] | | | | | | | Fax: | | | | | | | [phone] | +--------+--------+ + + + + Encounter Details +--------+---------+ + + + | Date | Type | Department | Care Team | Description | +--------+---------+ + + + | 10/20/ | Office | [facility] | Jenna Omer MD | [facility] | | 2017 | Visit | [place]/Ophthalmol | [address] | (keratoconjunctiviti | | | | ogy at [facility] [address] | [place], [place] | s sicca) ([facility]) | | | | [address] Mailcode: | [phone] | (Primary Dx); | | | | [address] for | [phone] | Bilateral dry eyes; | | | | Health and Healing, | | Choroidal nevus of | | | | Building | | left eye; GVHD | | | | Floor [place], [place] | | (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 host | | | | [address] | | disease) ([facility]); S/P | | | | [phone] | | allogeneic bone | | | | | | marrow transplant | | | | | | ([facility]) | +--------+---------+ + + + Social History [...] documented as of this encounter Progress Notes Joanne Dave - 10/20/2016 8:10 AM PDT COMPREHENSIVE OPHTHALMOLOGY PROGRESS NOTE Assessment and Plan: Exam Date: 10/20/2016 Patient:Khurram Kelly ([id number]) Impression: 26 y/o M with PMH signifcant for refractory AML s/p BMT and currently on tacrolimus and met hotrexate therapy BMT with history of GVHD, currently on prednisone (20 mg daily) Dry eye OU - start PFATs at least 4 x daily OU - d/c Visine and Clear Eyes - briefly discussed Restasis Choroidal nevus OS - stable appearance 10/20/2016 H/o anterior chamber cells OD, 09/2015. Quiet today Plan: RTC 1 year + Annual DFE Physician: Jenna Omer MD 10/20/2016 HPI: Khurram Kelly ([id number]), 26 y.o. year old male from [place] : Patient p resents with: Medical Eye Examination For about a month, eyes have felt dry and have been becoming blurry and has double vision t hat does not resolve when he covers either eye. Eyes feel filmy, and last night had goop in his eye. Last month he had the flu. Had a hip replacement last month. Was using clear eyes. No burning or itching, just feel dry and sensitive. Had a transplant and they want to r/o GVHD. Last year, he used a steroid eye drops for a short period of time, no longer using this shawn p. Occasionally, when reading, he will see a shadow when reading a word. Tobacco use: reports that he quit smoking about 17 months ago. He has a 2.50 pack-year smo jen history. He has quit using smokeless tobacco. Primary Care Provider: No Pcp Per PATIEN T Past ocular history: No specialty comments on file. Family ocular history: Family history includes Cancer in his maternal grandmother and paternal grandmother and Hea rt Disease in his maternal grandfather and paternal grandfather. See scanned intake form or preadmission data in [facility] for full Family ocular and medical his tory. Allergies: has No Known Allergies. Medications: Current Outpatient Prescriptions Medication Sig acyclovir 800 mg oral tablet Take 1 tablet by mouth two times daily. ALPRAZolam 0.5 mg oral tablet Take 1 tablet by mouth three times daily as needed. Indic ations: Anxiety beclomethasone 1 mg/mL oral suspension (compound) Take 1 mL by mouth four times daily. Shake well and refrigerate. Please give 24 hours notice to compound medication. Discard afte r 14 days. fluconazole 200 mg oral tablet Take 2 [...] twice daily (every Sunday and ). zolpidem 5 mg oral tablet Take 1 tablet by mouth once daily at bedtime as needed for sl eep. Indications: Sleep-Onset Insomnia No current facility-administered medications for this visit. 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 Reviewed systems for: fever, wt. loss, ENT, cardiovascular, pulmonary, GI, urinary, neurolo gic, endocrine, bleeding/blood disorders, AIDS/HIV, cancer/tumors, arthritis - all were nega tive except as noted above. EXAMINATION: Base Exam Visual Acuity (Snellen - Linear) Right Left Dist sc 20/40 20/40-2 Dist ph sc 20/20-1 20/25+2 Doubled OS>OD, better with pinhole. Tonometry (Tonopen, 8:22 AM) Right Left Pressure 15 16 Dilation Both eyes: 2.5% Phenylephrine, 1.0% Mydriacyl @ 8:21 AM Pupils Pupils Right PERRL Left PERRL Visual Diamond (Counting fingers) Left Right Result Full Extraocular Movement Right Left Result Full Full Neuro/Psych Oriented x3: Yes Mood/Affect: Normal Slit Lamp and Fundus Exam External Exam Right Left External Normal Normal Slit Lamp Exam Right Left Lids/Lashes Normal Normal Conjunctiva/Sclera White and quiet White and quiet Cornea 2+ inferior PEE, low tear henderson, pigment specks on endo 2+ inferior PEE, inferonasa l coalescence, pigment specks on endo Anterior Chamber Deep and quiet, deep Deep and quiet Iris Normal Normal Lens Clear Clear Fundus Exam Right Left Vitreous Normal Normal Disc Normal Normal C/D Ratio 0.1 0.1 Macula Normal Normal Vessels Normal Normal Periphery Normal Attached, less than 1 DD pigmented lesion appearing consistent with nevus located along inferior arcade. No associated orange pigment or fluid. No drusen. IJoanne COT, performed, reviewed or revised the above history, medications, marc rgies, as well as performed elements noted in the Base Ophthalmology Exam, visual acuity, pu pils, EOMs, CVF and IOP. See EPIC ophthalmology module for exam information. Assessment and Plan is now at the top of the note. Elisa Parisi/ HANNAH Sanders, am functioning as a scribe for Dr. Jenna Omer M.D. I have reviewed and edited history and pharmaceutical development technician documentation, and performed all other el ements to above examination documentation. I have reviewed and verified the above scribed note of my visit with this patient as record ed by the scribe indicated in the tech attestation above. 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
--- OUTSIDE RECORDS SUMMARY | ~2019-05-17 | XMS | Encounter Summary ---
Demographics + + + | Address | [address] | | | [place] [address] | + + + | Home Phone [...] Providers + +------+ + | Care Hand Slitter Name | Role | Phone | + [...] | | | | | | [facility] | | | | | | [place] [address] | | | | | | [phone] | | | +--------+ + + + [...] Rd | | | | | | [place], [place] | | | | | | [address] | | | | | | [phone] | | | | | | | [...] + + + | YESSICA SORTO | [address] | [place], [place] | | | RUTHIE CARTER [facility]STA | [address] | [address] | | | TESTS | | | [...] - [place] | [address] | [place], [place] | | | [place], POINT OF CARE | [address] | [address] | | | TESTS | | | [...] | + + + + + | [facility] | [address] | [place] [address] | | | SERVICES, CORE | PARK [...] 2 fold may not reflect true | [facility] | | biological changes and [...] | | | characteristics determined by the [facility] | | | Molecular Diagnostic Center. It has not been cleared or approved by | | | the Food and Drug Administration. FDA approval is not required for | | | clinical use of this test, and therefore validation was done as | | | required under the requirements of the Clinical Laboratory Improvement | | | Act of 1988. The [facility] Molecular | | | Diagnostic Center is a fully licensed and/or accredited clinical | | | laboratory under CLIA, CAP, and the [facility]. | | + + + + + + + + | Performing | Address | City/State/Zipcode | Phone Number | | Organization | | | | + + + + + | [facility] | [address] | [place] [address] | | | DIAGNOSTIC | [address] [...]
--- OUTSIDE RECORDS SUMMARY | ~2019-05-17 | XMS | Encounter Summary ---
Demographics + + + | Address | [address] | | | [place] [address] | + + + | Home Phone [...] | + + +---------+ + | Gabriel Kelyl | ECON | Unknown | | + + +---------+ + Care Team Providers + +------+ + | Care Auditor Tax Name | Role | Phone | + +------+ + | Pending Pcp Addition | PCP | Unavailable | + +------+ + Reason for Visit + + + | Reason | Comments | + + + | Transplant follow-up | | + + + | Chemotherapy | | + + + Office Visit [...] | | | | | remission | [address] | [facility] | | | | | | Phone: | [facility] | | | | | Procedures | [phone] | [place], [place] | | | | | Post BMT | Fax: | [address] | | | | | Auth to | [phone] | Phone: | | | | | included | | [phone] | | | | | facility, | | Fax: | | | | | diagnostics, | | [phone] | | | | | office | | | | | | | visits and | | | | | | | surgery | | | +--------+---------+ + + + + Encounter Details +--------+---------+ + + + | Date | Type | Department | Care Team | Description | +--------+---------+ + + + | 11/28/ | Office | Center for | Aspen Cummins FNP | S/P allogeneic bone | | 2016 | Visit | Hematologic | [address] | marrow transplant | | | | Malignancies at | [facility] | (HCC) (Primary Dx) | | | | [facility] | [place], [place] | | | | | [address] | [address] | | | | | [facility] Mailcode: | [phone] | | | | | [id number] [facility] | | | | | | Pavilion [place], | | | | | | [place] [address] | | | | | | [phone] | | | +--------+---------+ + + + [...] + + + | Blood Pressure | 124/73 | 11/29/2015 12:34 PM | | | | | PDT | | + + + + + | Pulse | 65 | 11/29/2015 12:34 PM | | | | | PDT | | + + + + + | Temperature | 36.6 C (97.9 F) | 11/29/2015 12:34 PM | | | | | PDT | | + + + + + | Respiratory Rate | 16 | 11/29/2015 12:34 PM | | | | | PDT | | + + + + + | Oxygen Saturation | 100% | 11/29/2015 12:34 PM | | | | | PDT | | + + + + + | Inhaled Oxygen | - | - | | | Concentration | | | | + + + + + | Weight | 86.1 kg (189 lb 13.1 | 11/29/2015 12:34 PM | | | | oz) | PDT | | + + + + + | Height | - | - | | + + + + + | Body Mass Index | 24.54 | 08/18/2015 4:35 PM | | | | | PST | | + + + + + documented in this encounter Patient Instructions Patient Instructions Aspen Cummins FNP - 11/29/2015 1:19 PM PDT1. No change in your pred nisone dosing today 2. We'll check a tacrolimus level when you come in tomorrow and call you in the afternoon with any dose adjustments 3. If your CMV PCR from today is negative, we'll decrease your valganciclovir to 900 mg by mouth once daily and continue for 2 more weeks before going back to acyclovir 4. Continue the low bacteria diet through day +100 (12/05/15), then a regular diet is ok 5. Restart the triamcinolone cream to see if we can get your rash to go away 6. Return to clinic daily through 12/03/15 for azacitidine 7. Return to clinic to follow up with Yari Garcia MD on 12/07/15 or sooner as jan ded. documented in this encounter Progress Notes Aspen Cummins FNP - 11/29/2015 8:30 AM PDT 11/29/2015 [facility] MD: Yari Garcia MD Primary Oncologist: Yari Garcia MD Diagnosis: AMML, primary refractory Transplant Date: 08/27/15 Donor: MM URD (DPB1 permissive antigen mismatch, male, [id number]) Identifying Data: Khurram Kelly is a 25 [...] his L ankle. He was evaluated at [facility] ED on 06/[address] angiogram negative [...] CD34, variable CD56, variable CD117, and dim [id number] mickey; promonocyte immunophenotype (70% by flow): CD11b, [...] durin g taper. He is currently day +94 s/p transplant, day 29 c1 of azacitidine and returns to clinic toda y for scheduled follow-up. Interim History: Khurram was most recently evaluated in our [facility] by me on 11/22/15. Feeling well today without c/o. Spent the weekend at the [facility] with his family, had a great time. Energy level was good, able to participate in the acti vities he wanted to. Appetite is good, eating and drinking well without c/o N/V/D. Rash pe rsists, unchanged. Review of Systems Constitutional: Negative for fever, chills and malaise/fatigue. HENT: Negative for headaches, congestion and sore throat. Respiratory: Negative for cough and shortness of breath. Cardiovascular: Negative for chest pain and leg swelling. Gastrointestinal: Negative for nausea, vomiting, abdominal pain and diarrhea. Genitourinary: Negative for dysuria. Musculoskeletal: Negative for myalgias and joint pain. Skin: Positive for rash. Negative for itching. Neurological: Positive for tremors. Negative for dizziness, tingling and weakness. All other systems reviewed and [...] acid chelate 133 mg oral tablet Take 1 tablet by mouth two fernanda es daily. Increase dose by one tablet by mouth per day every 3 days as tolerated; hold for l oose stools. OLANZapine (ZYPREXA) 10 mg oral tablet Take [...] needed. tacrolimus 0.5 mg oral capsule Take 1 mg (one 1 mg capsule) by mouth twice daily. Reser ve 0.5 mg capsules for future use. tacrolimus 1 mg oral capsule Take 1 mg (one 1 mg capsule) by mouth twice daily. [place] 0.5 mg capsules for future use. Indications: GVHD prevention triamcinolone acetonide 0.1 % topical cream Apply to affected area three times daily. A pply thin film to affected areas. valGANciclovir 450 mg oral tablet Take 2 tablets by mouth two times daily. No current facility-administered medications for this visit. Allergies Allergen Reactions Chlorhexidine Towelette Rash PAVAN cloths - ok to use Chloraprep for dresssing change per pt. Filed Vitals: 11/29/2015 12:34 PM Weight: 86.1 kg (189 lb 13.1 oz) BP: 124/73 Pulse: 65 Temp: 36.6 C (97.9 F) TempSrc: Oral Resp: 16 SpO2: 100% PainSc: 03 - Mild to Moderate PainLoc: Back (Lower) BMI: 24.54 kg/(m^2) Physical Exam Constitutional: He is well-developed, [...] Skin is warm and dry. Rash noted. very patchy erythematous maculopapular rash scattered to back, BUE with petechiae/rash to B LE Psychiatric: Mood and affect normal. Vitals reviewed. CVC: Trifusion intact to R ant chest wall without erythema, induration Lab Results Component Value Date WBC 6.3 11/29/2015 HB 12.7 11/29/2015 HCT 37.1 11/29/2015 PLT 72 11/29/2015 MCV 103.6 11/29/2015 RDW 60.3 11/22/2015 Lab Results Component Value Date BICARB 27 11/29/2015 TBILI 0.3 11/29/2015 CA 9.4 11/29/2015 CL 105 11/29/2015 CR 0.9 11/29/2015 GLU 110* 11/29/2015 AP 56 11/29/2015 TP 6.7 11/29/2015 BUN 19 11/29/2015 ALB 3.7 11/29/2015 AST 46* 11/29/2015 NA 140 11/29/2015 K 4.3 11/29/2015 ALT 96* 11/29/2015 Assessment/Plan: 1. Hematology: Khurram Kelly is currently day +94 s/p tBuCy-conditioned unrela edward donor PBSC transplant for primary refractory AML. His most recent marrow studies complet ed 11/22/15 showed a hypocellular marrow (patchy 15%) with trilineage hematopoiesis and no mo rphologic and immunologic evidence of acute leukemia. VNTR showed no detectable host cells. Cytogenetics and Genetrails pending. He began maintenance azacitidine on 11/01/15, currently c1, day 29. Peripheral blood counts recovering post-chemo; no blood products are required to day. --> continue to monitor CBC 2x/week --> f/u pending marrow studies --> begin c2 azacitidine 32 mg/m2 IV daily x 5 days 2. Zuirp-xo-Dfdh Disease: Skin bx due to mild rash [08/27/15] showed subtle vacuolar interfa ce dermatitis most c/w early mild GvHD. Rash progressed to ~56% BSA at worst on 09/15/15; pred nisone 1 mg/kg was initiated. He initially responded but flared during taper. He also devel oped low-level nausea and abd discomfort concerning for GvHD, empirically treated with oral non-absorbables with resolution. He has since been able to taper prednisone to 10 mg po afia y; continues with stable rash. Initially held TAC cream as pt felt this may have exacerbated his rash however skin unchanged. Continues therapeutic tacrolimus. --> adjust tacrolimus dose to maintain a trough level of 5 to 10 --> continue oral non-absorbables --> no change in steroid dosing today --> restart triamcinolone cream BID Acute GvHD Staging: Skin: Grade 1 Gut: Grade 0 Liver: Grade 0 Overall stage: 1 3. Infectious Disease: Afebrile without localizing s/s infection. He continues prophylactic posaconazole and bactrim along with valganciclovir due to CMV reactivation. His most recent CMV PCR on 11/22/15 was undetected. His most recent serum IgG level on 11/15/15 was adequate a t 499. Immune reconstitution panel collected 11/22/15 showed normal total T cells with increa sed CD8+ T cell subsets, normal total NK cells, decreased B cells with decreased margarita B ce lls and minimal immune activation with CD4 count 385. --> once pt has used his current supply of posaconazole, ok to change back to fluconazole 4 00 mg po daily if prednisone dose remains < 20 mg po daily --> if today's CMV PCR is undetected, decrease valganciclovir to 900 mg po daily x 2 weeks prior to changing back to acyclovir prophylaxis --> due to CMV reactivation prior to day +100, monitor PCRs weekly through day +180, then q oweek through day +270 --> IgG levels qoweek through day +100 with IVIG 200 mg/kg IV for IgG < 300 --> hold post-transplant vaccines until azacitidine maintenance completed Lab Results Component Value Date CMVQUANTPCR Undetected 11/22/2015 CMVQUANTPCR Weak Positive* 11/15/2015 CMVQUANTPCR Weak Positive* 11/08/2015 CMVQUANTPCR 440* 11/01/2015 4. Fluid, Electrolyte and Nutrition: Notes taste disturbance associated with azacitidine th erapy, does not care for the taste of sweet foods. Continues to eat well with adequate po fl uid intake. Denies c/o N/V/D. His electrolytes are reviewed and are within acceptable limits . --> continue low bacteria diet through day +100 --> maintain hydration --> continue to increase Mg+Pro by 133 mg/day q3 days as tolerated; hold for loose stools 5. Cardiovascular: Pretransplant TTE completed 08/10/15 showed a LVEF of 55-60%. CNI-induced HTN, well controlled with current medications. --> continue current medications 6. Psychosocial: Hx depression. Trialed zoloft but felt he was more withdrawn with this med ication. Notes intermittent anxiety, insomnia. Symptoms well controlled with xanax prn, destinee zapine qhs. --> continue current meds 7. Follow up --> scheduled for daily azacitidine through 12/03/15 --> RTC to f/u with Yari Garcia MD on 12/07/15, sooner prn [facility] [address] [facility] Mailcode: [id number] [place] [address] documented in this enc ounter [...] 2018 | Visit | Malignancy | [address] [facility] | | | | | | [facility] | | | | | | [place], [place] | | | | | | [address] | | | | | | [phone] | | | | | | | | +--------+---------+ + + + documented as of this encounter Visit Diagnoses + + | Diagnosis | + + | 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
--- OUTSIDE RECORDS SUMMARY | ~2019-05-17 | XMS | Encounter Summary ---
Demographics + + + | Address | [address] | | | [place] [address] | + + + | Home Phone [...] Team Providers + +------+ + | Care Sisal Picker Name | Role | Phone | + [...] [address] | | | | | | [place], [place] | | | | | | [address] | | | | | | [phone] | | | +--------+ + + + [...] 2019 | Visit | Malignancy | [address] [facility] | | | | | | [address] | | | | | | [place], [place] | | | | | | [address] | | | | | | [phone] | | | | | | | | +--------+---------+ + + + documented as of this encounter Visit Diagnoses Not on filedocumented in this encounter"
--- OUTSIDE RECORDS SUMMARY | ~2019-05-17 | XMS | Encounter Summary ---
Demographics + + + | Address | [address] | | | [place] [address] | + + + | Home Phone [...] Team Providers + +------+ + | Care Dairy Bar Manager Name | Role | Phone | [...] | +--------+ + + + + | 01/07/ | Diagnostic | [facility] for | | Lab Draw | | 2018 | Visit | Hematologic | | | | | | Malignancies at | | | | | | [facility] | | | | | | [address] | | | | | | [address] Mailcode: | | | | | | [id number] [place] | | | | | | [place], | | | | | | [place] [address] | | | | | | [phone] | | | +--------+ + + + [...] of this encounter Progress Lincoln Austin - 01/07/2018 1:30 PM PDTRight AC accessed with a 23 gauge [...] [address] | | | | | | [place], [place] | | | | | | [address] | | | | | | [phone] | | | | | | | | +--------+---------+ + + + documented as of this encounter Procedures + +--------+ + + + | Procedure Name | Priori | Date/Time | Associated Diagnosis | Comments | | | ty | | | | + +--------+ + + + | CBC+DIFF,POC | Routin | 01/07/2018 | Immunocompromised | Results for this | | | e | 1:45 PM | state associated | procedure are in the | | | | PDT | with stem cell | results section. | | | | | transplant (HCC) | | + +--------+ + + + | CMP, POC (BMP+LFT) | Routin | 01/07/2018 | Immunocompromised | Results for this | | | e | 1:45 PM | state associated | procedure are in the | | | | PDT | with stem cell | results section. | | | | | transplant (HCC) | | + +--------+ + + + documented in this encounter Results CMP, POC (BMP+LFT) (01/07/2018 1:45 PM PDT) + +--------+ + + + | Component | Value | Ref Range | Performed | Pathologist | | | | | At | Signature | + +--------+ + + + | SODIUM, POC | 138 | 134 - 143 | [facility] | | | | | mmol/L | [facility] | | | | | | [facility] | | | | | | OF CARE | | | | | | TESTS | | + +--------+ + + + | POTASSIUM, | 4.0 | 3.4 - 5.0 | [facility] | | | POC | | mmol/L | [facility] | | | | | | [facility] | | | | | | OF CARE | | | | | | TESTS | | + +--------+ + + + | TOTAL CO2, | 29 | 22 - 29 mmol/L | [facility] | | | POC | | | [facility] | | | | | | [facility] | | | | | | OF CARE | | | | | | TESTS | | + +--------+ + + + | CHLORIDE, | 102 | 97 - 108 mmol/L | [facility] | | | POC | | | [facility] | | | | | | [facility] | | | | | | OF CARE | | | | | | TESTS | | + +--------+ + + + | GLUCOSE, | 66 (L) | 70 - 99 mg/dL | [facility] - | | | POC | | | [facility] | | | | | | [facility] | | | | | | OF CARE | | | | | | TESTS | | + +--------+ + + + | CALCIUM | 8.9 | 8.6 - 10.2 | [facility] - | | | TOTAL, POC | | mg/dL | [facility] | | | | | | [facility] | | | | | | OF CARE | | | | | | TESTS | | + +--------+ + + + | BUN, POC | 10 | 6 - 20 mg/dL | [facility] | | | | | | [facility] | | | | | | [facility] | | | | | | OF CARE | | | | | | TESTS | | + +--------+ + + + | CREATININE, | 1.0 | 0.7 - 1.3 mg/dL | [facility] | | | POC | | | [facility] | | | | | | [facility] | | | | | | OF CARE | | | | | | TESTS | | + +--------+ + + + | ALK PHOS, | 71 | 41 - 99 U/L | [facility] | | | CMP POC | | | [facility] | | | | | | [facility] | | | | | | OF CARE | | | | | | TESTS | | + +--------+ + + + | ALT, CMP | 33 | 0 - 60 U/L | [facility] | | | POC | | | [facility] | | | | | | [facility] | | | | | | OF CARE | | | | | | TESTS | | + +--------+ + + + | AST, CMP | 36 | 0 - 41 U/L | [facility] | | | POC | | | [facility] | | | | | | [facility] | | | | | | OF CARE | | | | | | TESTS | | + +--------+ + + + | BILIRUBIN | 0.6 | 0.3 - 1.2 mg/dL | [facility] | | | TOTAL, CMP | | | [place] | | | POC | | | [facility] | | | | | | OF CARE | | | | | | TESTS | | + +--------+ + + + | ALBUMIN, | 3.8 | 3.5 - 4.7 g/dL | [facility] | | | CMP POC | | | [place] | | | | | | [facility] | | | | | | OF CARE | | | | | | TESTS | | + +--------+ + + + | PROTEIN | 6.6 | 6.1 - 7.9 g/dL | [facility] - | | | TOTAL, CMP | | | [facility] | | | POC | | | [facility] | | | | | | OF CARE | | | | | | TESTS | | + +--------+ + + + + + | Specimen | + + | Blood | + + + + + + + | Performing | Address | City/State/Zipcode | Phone Number | | Organization | | | | + + + + + | [facility] | [address] | [place], [place] | | | [facility] | [address] | [address] | | | TESTS | | | | + + + + + CBC+DIFF,POC (01/07/2018 1:45 PM PDT) + + + + + + | Component | Value | Ref Range | Performed | Pathologist | | | | | At | Signature | + + + + + + | WBC POC | 8.4 | 3.5 - 10.8 | [facility] [...] + + + | HCT POC | 41.9 | 41.0 - 53.0 % | [facility] | | | | | | [facility] | | | | | | [facility] | | | | | | OF CARE | | | | | | TESTS | | + + + + + + | MCV POC | 92.1 | 80.0 - 100 fL | [facility] | | | | | | [facility] | | | | | | [facility] | | | | | | OF CARE | | | | | | TESTS | | + + + + + + | MCH POC | 31.2 | 27.0 - 34.0 pg | [facility] | | | | | | [facility] | | | | | | [facility] | | | | | | OF CARE | | | | | | TESTS | | + + + + + + | MCHC POC | 33.9 | 32.0 - 36.0 | [facility] - | | | | | g/dL | [facility] | | | | | | [facility] | | | | | | OF CARE | | | | | | TESTS | | + + + + + + | RDW SD, POC | 42.8 | 35.1 - 46.3 fL | [facility] | | | | | | [facility] | | | | | | [facility] | | | | | | OF CARE | | | | | | TESTS | | + + + + + + | PLT POC | 241 | 150 - 400 | [facility] [...] + + + + | NEUTROPHIL% | 36.2 (L) | 50.0 - 70.0 % | [facility] | | | POC | | | [place] | | | | | | [facility]INT | | | | | | OF CARE | | | | | | TESTS | | + + + + + + | LYMPH% POC | 46.7 (H) | 18 - 42 % | [facility] | | | | | | [facility] | | | | | | [facility] | | | | | | OF CARE | | | | | | TESTS | | + + + + + + | MONO %, POC | 11.1 (H) | 3.5 - 9.0 % | [facility] | | | | | | [facility] | | | | | | [facility] | | | | | | OF CARE | | | | | | TESTS | | + + + + + + | EOS %, POC | 5.5 (H) | 1.0 - 3.0 % | [...] + + + + | NEUTROPHIL# | 3.0 | 1.8 - 7.7 | [facility] - | | | POC | | 10*3/uL | [facility] | | | | | | [facility] | | | | | | OF CARE | | | | | | TESTS | | + + + + + + | LYMPH# POC | 3.9 | 1.0 - 4.8 | [facility] - [...] + + | EOS #, POC | 0.5 | 0.0 - 0.5 | [facility] [...] [facility] | 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
--- OUTSIDE RECORDS SUMMARY | ~2019-05-17 | XMS | Encounter Summary ---
Demographics + + + | Address | [address] | | | [place] [address] | + + + | Home Phone [...] Providers + +------+ + | Care Chief Librarian Extension Department Name | Role | Phone | + +------+ + | Zayda Hinton | PCP | | + +------+ + Encounter Details +--------+ + + + + | Date | Type | Department | Care Team | Description | +--------+ + + + + | 10/09/ | Pharmacy | Specialty Pharmacy | | | | 2016 | Visit | Services [address] | | | | | [address] | | | | | | [place], [place] | | | | | | [address] | | | | | | [phone] | | | +--------+ + + + [...] 2019 | Visit | Malignancy | [address] [facility] [facility] | | | | | | [address] | | | | | | [place], [place] | | | | | | [address] | | | | | | [phone] | | | | | | | | +--------+---------+ + + + documented as of this encounter Visit Diagnoses Not on filedocumented in this encounter"
--- OUTSIDE RECORDS SUMMARY | ~2019-05-17 | XMS | Encounter Summary ---
Demographics + + + | Address | [address] | | | [place] [address] | + + + | Home Phone [...] Team Providers + +------+ + | Care Hemodialysis Rn Name | Role | Phone | + +------+ + | Zayda Hinton | PCP | | + +------+ + Encounter Details +--------+--------+ + + + | Date | Type | Department | Care Team | Description | +--------+--------+ + + + | 05/15/ | Travel | | | | | [...] Rd | | | | | | [place], [place] | | | | | | [address] | | | | | | [phone] | | | | | | | | +--------+---------+ + + + documented as of this encounter Visit Diagnoses Not on filedocumented in this encounter"
--- OUTSIDE RECORDS SUMMARY | ~2019-05-17 | XMS | Encounter Summary ---
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, | [address] | [address] | | | | | not having | [address] | [address] | | | | | achieved | [place], [place] | Rd Mailcode: | | | | | remission | [address] | [id number] | | | | | Procedures | Phone: | [place] | | | | | [place] | [phone] | Pavilion | | | | | AZACITIDINE | Fax: | [place], [place] | | | | | INJECTION, 1 | [phone] | [address] | | | | | MG [place] | | Phone: | | | | | CHM,IV | | [phone] | | | | | INFSN,1 HR | | Fax: | | | | | DC CH[facility],IV | | [phone] | | | | | INFSN,ADDL | | | | | | | HR Vid[facility] | | | +--------+---------+ + + + + Encounter Details +--------+ + + + + | Date | Type | Department | Care Team | Description | +--------+ + + + + | 11/04/ | Clinical | Center for | | Chemotherapy | | 2016 | Support | Hematologic | | ([facility]) | | | Staff | [facility] at [facility] | | | | | | [address] | | | | | | [address] Mailcode: | | | | | | [id number] [place] | | | | | | [place], | | | | | | [place] [address] | | | | | | [phone] | | | +--------+ + + + [...] + + + | Blood Pressure | 121/76 | 11/05/2015 7:55 AM | | | | | PDT | | + + + + + | Pulse | 85 | 11/05/2015 7:55 AM | | | | | PDT | | + + + + + | Temperature | 37 C (98.6 F) | 11/05/2015 7:55 AM | | | | | PDT | | + + + + + | Respiratory Rate | 18 | 11/05/2015 7:55 AM | | | | | PDT | | + + + + + | Oxygen Saturation | 100% | 11/05/2015 7:55 AM | | | | | PDT | | + + + + + | Inhaled Oxygen | - | - | | | Concentration | | | | + + + + + | Weight | 85 kg (187 lb 6.3 | 11/05/2015 7:55 AM | | | | oz) | PDT | | + + + + + | Height | - | - | | + + + + + | Body Mass Index | 24.22 | 08/18/2015 4:35 PM | | | | | PST | | + + + + + documented in this encounter Progress Notes Silvia Randall RN - 11/05/2015 8:05 AM PDTName: Khurram Kelly Date: 11/05/2015 Allergies: Khurram is allergic to chlorhexidine towelette. Khurram here for Vidaza. VSS. Pt accompanied by his , Gabriel. 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 There has been new redness/rash on tops of thighs. Pt denies pruritis. Pt current ly on 10mg Prednisone daily as well as topical cream. Consulted Em Wood NP, to assess i f Prednisone dose needs to be adjusted. Em assessed pt chairside. Edema: no; Mucositis: no; Urinary: no; Neuropathy: no; S/S Bleeding: no; Nausea and/or Vomiting: Pt reported mild, intermittent nausea, well managed with Rx Zofran. Fatigue: Pt denies, stated energy level stable. Pain: Pt denies Trifusion intact to left anterior chest wall without erythema or induration. All lumens flu shing well with good blood return. No labs ordered today. Dressing not due today, however dr elena peeling up on edges. Dressing removed, skin intact without s/s exit site or tunnel in fection. Using a Central Line Dressing Change kit, site cleansed with Chloraprep. Skin prep applied prior to dressing application. Biopatch applied with Tegaderm dressing. Positive pressure valves changed to each port. All lumens pulse flushed with 20 mL NS and blue and white lumens flushed with 50U Heparin. Infusion running into red lumen today. Patient tolera edward procedure without difficulty. Vidaza infused with 250ml NS sidearm bag. Positive blood return on IV line pre and post i nfusion. Pt tolerated well, without incident. Red lumen of trifusion flushed with 20ml NS an d 50U Heparin. Pt Alert & Oriented x3 and discharged ambulatory in stable condition with his . Refer to MAR and Onc Lines and Transfusions doc flowsheet for treatment details. 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 | | PDT | (HCC)- primary | | | PARAMETERS | | [...] 65 mg in | New Bag | 11/05/19 | 65 mg | 213 | | | NaCl 0.9 % IV 65 mg (rounded | | 16 8:55 | | mL/hr | | | from 64.64 mg = 32 mg/m2 | | AM PDT | | | | | 2.02 m2 Treatment plan recorded | | | | | | | BSA), intravenous, Administer | | | | | | | over 30 Minutes, ONCE, 1 dose, | | | | | | | 11/05/15 at 0815, HIGH RISK | | | | | | | MEDICATION-CHEMOTHERAPY | | | | | | | Administration must be completed | | | | | | | within 1 hour of preparation., | | | | | | + +---------+ +-------+-------+------+ +---+---+ | | | +---+---+ + +-------+ +------+---+---+ | ondansetron (ZOFRAN) tablet 8 | Given | 11/05/19 | 8 mg | | | | mg 8 mg, oral, ONCE, 1 dose, Fri | | 16 8:28 | | | | | 16 at 0815 | | AM PDT | | | | + +-------+ +------+---+---+ +---+---+ | | | +---+---+ documented in this encounter"
--- OUTSIDE RECORDS SUMMARY | ~2019-05-17 | XMS | Encounter Summary ---
Demographics + + + | Address | [address] | | | [place] [address] | + + + | Home Phone [...] Team Providers + +------+ + | Care Test Worker Name | Role | Phone | + +------+ + | Zayda Hinton | PCP | | + +------+ + Encounter Details +--------+ + + + + | Date | Type | Department | Care Team | Description | +--------+ + + + + | 05/28/ | Procedure | 6A Intra Op [facility] | | | | 2017 | Pass | [facility] | | | | | | Admitting Desk | | | | | | Located on the 9 | | | | | | floor [address] | | | | | | [address] | | | | | | [place], [place] | | | | | | [address] | | | +--------+ + + + [...] 2019 | Visit | Malignancy | [address] [facility] | | | | | | [address] | | | | | | [place], [place] | | | | | | [address] | | | | | | [phone] | | | | | | | | +--------+---------+ + + + documented as of this encounter Visit Diagnoses Not on filedocumented in this encounter"
--- OUTSIDE RECORDS SUMMARY | ~2019-05-17 | XMS | Encounter Summary ---
Demographics + + + | Address | [address] | | | [place] [address] | + + + | Home Phone [...] Team Providers + +------+ + | Care Plant Protection Supervisor Name | Role | Phone | + +------+ + | Pending Pcp Addition | PCP | Unavailable | + +------+ + Reason for Referral Consultation (Urgent) +--------+--------+ + + + + [...] MD | | | | | femur ([facility]) | [address] | [address] | | | | | Procedures | [facility] | | | CONSULT TO | Rd | Tao Rodriguez, | | | | | ORTHOPEDICS | [place], [place] | [place] | | | | | AND | [address] | [address] | | | | | REHABILITATI | Phone: | Phone: | | | | | ON | [phone] | [phone] | | | | | | Fax: | Fax: | | | | | | [phone] | [phone] | +--------+--------+ + + + + Reason for Visit + + + | Reason | Comments | + + + | Transplant follow-up | | + + + Encounter Details +--------+---------+ + + + | Date | Type | Department | Care Team | Description | +--------+---------+ + + + | 07/13/ | Office | Center for | Aspen Cummins FNP | S/P allogeneic bone | | 2017 | Visit | Hematologic | [address] | marrow transplant | | | | Malignancies at | [facility] [address] | (HCC) (Primary Dx); | | | | [facility] | [place], [place] | Hip pain, left; AVN | | | | [address] | [address] | of femur (HCC) | | | | Debi Burger Mailcode: | [phone] | | | | | [address] | | | | | | [place], | | | | | | [place] [address] | | | | | | [phone] | | | +--------+---------+ + + + [...] + + + | Blood Pressure | 114/68 | 07/13/2016 9:27 AM | | | | | PST | | + + + + + | Pulse | 87 | 07/13/2016 9:27 AM | | | | | PST | | + + + + + | Temperature | 36.9 C (98.5 F) | 07/13/2016 9:27 AM | | | | | PST | | + + + + + | Respiratory Rate | 20 | 07/13/2016 9:27 AM | | | | | PST | | + + + + + | Oxygen Saturation | 99% | 07/13/2016 9:27 AM | | | | | PST | | + + + + + | Inhaled Oxygen | - | - | | | Concentration | | | | + + + + + | Weight | 95.4 kg (210 lb 5.1 | 07/13/2016 9:27 AM | | | | oz) | PST | | + + + + + | Height | - | - | | + + + + + | Body Mass Index | 26.71 | 01/25/2016 8:24 AM | | | | | PDT | | + + + + + documented in this encounter Progress Notes Aspen Cummins FNP - 07/13/2016 10:15 AM PST 07/13/2016 [facility] MD: Yari Garcia MD Primary Oncologist: Yari Garcia MD Diagnosis: AMML, primary refractory Transplant Date: 08/27/15 Donor: MM URD (DPB1 permissive antigen mismatch, male, [id number]) Identifying Data: Khurram Gambleliat is a 25 y.o. CM with a [...] his L ankle. He was evaluated at [place]' ED on 06/[address] angiogram [...] CD34, variable CD56, variable CD117, and dim BH299-obnsg mickey; promonocyte immunophenotype (70% by flow): CD11b, [...] durin g taper. He is currently day +321 s/p transplant, s/p 6 cycles of azacitidine and returns to clinic today for scheduled follow-up. Interim History: Khurram was most recently evaluated in [facility] by me on 06/28/16. He reports increased L hip pain over the last 2 weeks. Katherin n has become severe at times, now limiting his exercise. He is no longer walking for exercis e, tried to limit any walking at all due to pain. Trouble sleeping at night due to pain wit h movement. Reports pain is mainly deep in his groin. Has been taking ibuprofen without rel ief. Appetite is ok, feels he's eating enough but not the amounts he had been eating. Adeq uate po fluid intake. Notes mild intermittent nausea, not requiring antiemetics. No c/o a bd pain, cramping or diarrhea. Tapered off budesonide. Had a great holiday with his family. They celebrated Mora here in town, then travelled to [place] for New Years. Their son had a great time playing in the snow. Review of Systems Constitutional: Negative for chills, fever and malaise/fatigue. HENT: Negative for headaches, congestion and sore throat. Respiratory: Negative for cough and shortness of breath. Cardiovascular: Negative for chest pain and leg swelling. Gastrointestinal: Positive for nausea (mild low level nausea not requiring antiemetics). Ne gative for abdominal pain, diarrhea and vomiting. Genitourinary: Negative for dysuria. Musculoskeletal: Positive for joint pain ("excruciating" L hip pain, as above). Negative fo r myalgias. Skin: Negative for rash. Neurological: Negative for dizziness, tremors and weakness. All other systems reviewed and are negative. Current Outpatient Prescriptions Medication Sig acyclovir 800 mg oral tablet Take 1 tablet by mouth two times daily. ALPRAZolam 0.5 mg oral tablet Take 2 tablets by mouth three times daily as needed. Kimberly cations: Anxiety amLODIPine 5 mg oral tablet Take one-half tablet by mouth once daily. OLANZapine (ZYPREXA) 10 mg oral tablet Take 1 tablet by mouth once daily at bedtime. omeprazole 20 mg oral capsule,delayed release(DR/EC) Take 1 capsule by mouth before babak akfast. oxyCODONE, immediate release, 5 mg oral tablet Take 1-2 tablets by mouth every six hour s as needed for moderate pain or severe pain. PARoxetine 20 mg oral tablet 20 mg by mouth once daily tacrolimus 0.5 mg oral capsule Take 0.5 mg (one capsule) by mouth twice daily trimethoprim-sulfamethoxazole 160-800 mg oral tablet Take 1 tablet by mouth twice daily (every Sunday and ). No current facility-administered medications for this visit. Allergies Allergen Reactions Chlorhexidine Towelette Rash PAVAN cloths - ok to use Chloraprep for dresssing change per pt. Filed Vitals: 07/13/2016 9:27 AM Weight: 95.4 kg (210 lb 5.1 oz) BP: 114/68 Pulse: 87 Temp: 36.9 C (98.5 F) TempSrc: Oral Resp: 20 SpO2: 99% PainSc: 08 - Very Severe PainLoc: Hip (Left) BMI: 26.71 kg/(m^2) Physical Exam Constitutional: He is oriented to person, place, and time and well-developed, well-nourishe d, and in no distress. HENT: Head: Normocephalic [...] He exhibits no edema. Neurological: He is alert and oriented to person, place, and time. Skin: Skin is warm and dry. No rash noted. Psychiatric: Mood and affect normal. Vitals reviewed. Lab Results Component Value Date WBC 9.1 07/13/2016 HB 13.8 07/13/2016 HCT 40.8 07/13/2016 PLT 246 07/13/2016 MCV 97.1 07/13/2016 RDW 44.9 05/01/2016 Lab Results Component Value Date BICARB 25 07/13/2016 TBILI 0.5 07/13/2016 CA 9.2 07/13/2016 CL 99 07/13/2016 CR 0.9 07/13/2016 GLU 98 07/13/2016 AP 142 (H) 07/13/2016 TP 7.0 07/13/2016 BUN 9 07/13/2016 ALB 3.7 07/13/2016 AST 47 (H) 07/13/2016 NA 134 07/13/2016 K 3.6 07/13/2016 ALT 67 (H) 07/13/2016 Assessment/Plan: 1. 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 Peripheral blood counts remain WNL with no evidence of disease by periph eral smear. His most recent marrow studies completed 04/19/16 showed a patchy hypocellular ( less than 5% to 50%) bone marrow with trilineage hematopoiesis and < 3% myeloid blasts. Susu otype 46,XY[20]. VNTR showed no detectable host cells. 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 --> continue CBC q2-4 weeks --> anticipate repeat marrow studies in conjunction with his one year anniversary, sooner p rn 2. Aydek-vv-Ayrd Disease: Skin bx due to mild rash [...] he was seen in the ED in [place] in late 01/21. Prednisone was increased back [...] on 05/15/16 with rapid resolution of his rash, now tapered to 5 mg po every other day. He has also tapered off budesonide. Continues low dose tacrolimus. No s/s active GvHD noted at this time. --> d/c prednisone --> continue tacrolimus 0.5 mg bid without additional taper 3. Infectious Disease: Afebrile without localizing s/s infection. He continues prophylactic acyclovir and bactrim. His most recent immune reconstitution panel collected 05/29/16 showe d normal total number of T-cells, normal total number NK-cells, decreased total number of B- cells with inimal immune activation with CD4 count 348. Post transplant vaccines held due to azacitidine maintenance therapy; began vaccines after therapy completed. PCV13 #1 and inact ivated influenza vaccine dosed 04/19/16. Second doses of both given 06/28/16. --> continue acyclovir and bactrim as prescribed --> repeat immune reconstitution panel in conjunction with his one year anniversary; this w ill guide d/c of prophylactic antimicrobials --> additional immunizations due in conjunction with his one year anniversary 4. Fluid, Electrolyte and Nutrition: Appetite is good, but feels he's not eating as much as he had been. Weight remains stable. Mild low level nausea, not requiring antiemetic thera py. Continues with adequate po fluid intake. His electrolytes are reviewed and are within a cceptable limits. --> continue a well balanced diet --> maintain hydration 5. Cardiovascular: Pretransplant TTE completed 08/10/15 showed a LVEF of 55-60%. CNI-induced HTN, well controlled with current meds.. --> continue amlodipine as prescribed 6. Psychosocial: Hx of anxiety, previously well controlled with xanax TID. Noted increase i n anxiety or decreased effectiveness of xanax. Changed to clonazepam 0.5 mg po BID with kath kthrough dosing prn however felt xanax worked better for him overall. Changed back to xanax with improvement. Initially professed interest in a peer support group or support at [facility], then felt this was no longer necessary. In 05/24, he noted an increase in his anxiety, increased xanax to ~4 mg po daily, then ran out of medication and suffered withdrawal sympt oms. Paxil added 06/12/16, feels it has helped a bit. Feels his anxiety is well controlled wi xanax 1 mg po TID and paxil. He is now amenable to [facility] but wanted to wait until a fter the holidays to set up an evaluation. He also would like to connect with peer support. --> continue xanax 1 mg po TID, paxil 20 mg po daily --> again requested identification of peer support person from Kezia Stokes LCSW --> encouraged pt to contact [facility] after the holidays to schedule evaluation and ongo ing support 7. Musculoskeletal: Hx of intermittent L hip pain. Plain films on 03/30/16 showed minima l degenerative changes of both hips. Pain had resolved, however returned within the last fe w weeks, much more intense. 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 --> MRI L hip scheduled for 07/20/16 pending insurance authorization --> urgent Ortho referral placed 8. Follow up --> RTC to f/u with Yari Garcia MD on 07/26/16, sooner prn [facility] [place] [id number] Mailcode: [address] [place] [address] documented in this enc ounter [...] 2018 | Visit | Malignancy | [address] | | | | | | [address] | | | | | | [place], [place] | | | | | | [address] | | | | | | [phone] | | | | | | | [...] | | transplant | + + | Hip pain, left Pain in joint, pelvic region and thigh | + + | AVN of femur (HCC) | + + documented in this encounter
--- OUTSIDE RECORDS SUMMARY | ~2019-05-17 | XMS | Encounter Summary ---
Demographics + + + | Address | [address] | | | [place] [address] | + + + | Home Phone [...] Providers + +------+ + | Care Nut Cracker Name | Role | Phone | + [...] | | | | Malignancies at | [address] [place], | every few days) | | | | [facility] | [place] [address] | | | | | [address] [facility] [address] | [phone] | | | | | [facility] Mailcode: | | | | | | [address] [place] | | | | | | [facility] [place], | | | | | | [place] [address] | | | | | | [phone] | | | +--------+ + + + [...] [place] | | | | | | [address] | | | | | | [phone] | | | | | | | | +--------+---------+ + + + documented as of this encounter Visit Diagnoses Not on filedocumented in this encounter"
--- OUTSIDE RECORDS SUMMARY | ~2019-05-17 | XMS | Encounter Summary ---
Demographics + + + | Address | [address] | | | [place] [address] | + + + | Home Phone [...] Team Providers + +------+ + | Care Research And Development Engineer Name | Role | Phone | + +------+ + | Pending Pcp Addition | PCP | Unavailable | + +------+ + Encounter Details +--------+ + + + + | Date | Type | Department | Care Team | Description | +--------+ + + + + | 03/14/ | Document-Sc | Health Information | Unknown . | | | 2015 | anned | Services [phone] | | | | [address] | | | | | | Mailcode: [id number] | | | | | | [facility] | | | | | | [place], [place] | | | | | | [address] | | | | | | [phone] | | | +--------+ + + + [...] [place] | | | | | | [address] | | | | | | [place], [place] | | | | | | [address] | | | | | | [phone] | | | | | | | | +--------+---------+ + + + documented as of this encounter Visit Diagnoses Not on filedocumented in this encounter"
--- OUTSIDE RECORDS SUMMARY | ~2019-05-17 | XMS | Encounter Summary ---
Demographics + + + | Address | [address] | | | [place] [address] | + + + | Home Phone [...] Providers + +------+ + | Care Manager Mobile Name | Role | Phone | + +------+ + | Zayda Hinton | PCP | | + +------+ + Encounter Details +--------+ + + + + | Date | Type | Department | Care Team | Description | +--------+ + + + + | 10/20/ | Pharmacy | Specialty Pharmacy | | | | 2015 | Visit | Services [address] | | | | | [address] | | | | | | [place], [place] | | | | | | [address] | | | | | | [phone] | | | +--------+ + + + [...] [address] | | | | | | [place], [place] | | | | | | [address] | | | | | | [phone] | | | | | | | | +--------+---------+ + + + documented as of this encounter Visit Diagnoses Not on filedocumented in this encounter"
--- OUTSIDE RECORDS SUMMARY | ~2019-05-17 | XMS | Encounter Summary ---
Demographics + + + | Address | [address] | | | [place] [address] | + + + | Home Phone [...] Team Providers + +------+ + | Care Stove Cleaner Name | Role | Phone | + +------+ + | Pending Pcp Addition | PCP | Unavailable | + +------+ + Reason for Visit + + + | Reason | Comments | + + + | Lab Draw | Trifusion | + + + Benefits Check (Routine) [...] | | | | | | | [address] | | | | | | | Phone: | | | | | | | [phone] | | | | | | | Fax: | | | | | | | [phone] | +--------+--------+ + + + + Encounter Details +--------+ + + + + | Date | Type | Department | Care Team | Description | +--------+ + + + + | 11/14/ | Clinical | Center for | | Lab Draw (Trifusion) | | 2016 | Support | Hematologic | | | | | Staff | Malignancies at [facility] | | | | | | [address] | | | | | | [place] Mailcode: | | | | | | [id number] [place] | | | | | | [place], | | | | | | [place] [address] | | | | | | [phone] | | | +--------+ + + + [...] encounter Progress Notes Silvia Randall RN - 11/15/2015 7:56 AM PDTName: Khurram Kelly Date: 11/15/2015 Allergies: Khurram is allergic to chlorhexidine towelette. Khurram here for labs and OV. VSS. Pt accompanied by his , Gabriel. Pt stated appetite and fluid intake good. Weight stable. Drinking 2L PO fluid daily. 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 Faint redness on ventral forearms and lower legs. Pt stated redness/bumps on stomach, chest., and back are fading. Denies pruritis. Pt to check in further with Doctor Anand at OV. Edema: no; Mucositis: no; Urinary: no; Neuropathy: no; S/S Bleeding: no; Nausea and/or Vomiting: Pt denies Fatigue: Pt denies, stated energy level good. Tolerated activity of busy weekend well. Pain: Pt denies Trifusion intact to left anterior chest wall without erythema or induration. Trifusion acce ssed per protocol. Good blood return noted. Appropriate waste discarded from red lumen. CB C and CMP drawn and processed. Remaining labs drawn and sent to core lab. Pt has not taken h is tacrolimus yet today. Dressing removed, skin intact without s/s exit site or tunnel infec tion. Using a Central Line Dressing Change kit, site cleansed with Chloraprep. Skin prep a pplied prior to dressing application. Biopatch applied with Tegaderm dressing. Positive p ressure valves changed to each port. All lumens pulse flushed with 20 mL NS and 50U Heparin . Patient tolerated procedure without difficulty. CBC and CMP reviewed. No replacements needed today. Pt Alert & Oriented x3 and discharged i n stable condition to OV with Doctor Cheng. Refer to MAR and Onc Lines and [...] 2018 | Visit | Malignancy | [address] [facility] | | | | | | [address] | | | | | | [place], [place] | | | | | | [address] | | | | | | [phone] | | | | | | | | +--------+---------+ + + + documented as of this encounter Procedures + +--------+ + + + | Procedure Name | Priori | Date/Time | Associated Diagnosis | Comments | | | ty | | | | + +--------+ + + + | BMP + MAG, POC CHM | Routin | 11/15/2015 | S/P allogeneic | Results for this | | | e | 8:24 AM | bone marrow | procedure are in the | | | | PDT | transplant ([facility]) | results section. 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[facility])- primary | | | | | | induction failure | | + +--------+ + + + | CBC+DIFF,POC | Routin | 11/15/2015 | S/P allogeneic | Results for this | | | e | 8:20 AM | bone marrow | [...] + | TREATMENT PARAMETERS | Routin | 11/15/2015 | 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:07 AM | leukemia (AML), M4 | | | | | PDT | ([facility])- primary | | | | | | induction failure | | + +--------+ + + + | TREATMENT PARAMETERS | Routin | 11/15/2015 | 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:07 AM | leukemia (AML), M4 | | | | | PDT | ([facility])- primary | | | | | | induction failure | | + +--------+ + + + | TREATMENT PARAMETERS | Routin | 11/15/2015 | 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:07 AM | leukemia (AML), 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 | | | | | | induction failure | | + +--------+ + + + | TREATMENT PARAMETERS | Routin | 11/15/2015 | 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:07 AM | leukemia (AML), 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 | | | | | | induction failure | | + +--------+ + + + | TREATMENT PARAMETERS | Routin | 11/15/2015 | 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:07 AM | leukemia (AML), 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 | | | | | | induction failure | | + +--------+ + + + | NURSING | Routin | 11/15/2015 | Acute myeloid | | | COMMUNICATION #3 - | e | 8:07 AM | leukemia (AML), M4 | | | [place] | | PDT | (HCC)- primary | | | | | | induction failure | | + +--------+ + + + | NURSING | Routin | 11/15/2015 | Acute myeloid | | | COMMUNICATION #2 - | e | 8:07 AM | leukemia (AML), M4 | | | [place] | | PDT | ([facility])- primary | | | | | | induction failure | | + +--------+ + + + | NURSING | Routin | 11/15/2015 | Acute myeloid | | | COMMUNICATION #1 - | e | 8:07 AM | leukemia (AML), M4 | | | [place] | | PDT | ([facility])- primary | | | | | | induction failure | | + +--------+ + + + | TREATMENT PARAMETERS | Routin | 11/15/2015 | Acute myeloid | | | #1 - [place] | e | 8:07 AM | leukemia (AML), M4 | | | | | PDT | ([facility])- primary | | | | | | induction failure | | + +--------+ + + + | TREATMENT PARAMETERS | Routin | 11/15/2015 | Acute myeloid | | | #1 - [place] | e | 8:07 AM | leukemia (AML), M4 | | | | | PDT | ([facility])- primary | | | | | | induction failure | | + +--------+ + + + | CMV PCR | Routin | 11/15/2015 | S/P allogeneic | Results for this | | QUANTITATION, PLASMA | e | 8:05 AM | bone marrow | procedure are [...] + | LIVER SET | Urgent | 11/15/2015 | S/P allogeneic | Results for this | | (AST,ALT,BILI | | 8:05 AM | bone marrow | procedure are [...] + | TACROLIMUS, WHOLE | Routin | 11/15/2015 | S/P allogeneic | Results for this | | BLOOD | e | 8:05 AM | bone marrow | procedure are in the | | | | PDT | transplant ([facility]) | results section. 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[facility])- primary | | | | | | induction failure | | + +--------+ + + + | IGG, SERUM | Routin | 11/15/2015 | S/P allogeneic | Results for this | | | e | 8:05 AM | bone marrow | procedure are in the | | | | PDT | transplant ([facility]) | results section. 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[facility])- primary | | | | | | induction failure | | + +--------+ + + + documented in this encounter Results BMP + MAG POC CHM (11/15/2015 8:24 AM PDT) + +---------+ + + + [...] +---------+ + + + | GLUCOSE, | 156 (H) | 60 - 99 mg/dL | [...] + + + | LDH, POC | 196 | 0 - 206 U/L | [facility] [...] [facility] | [address] | [place], [place] | | | RUTHIE CARTER OF CARE | [facility] | [address] | | | TESTS | | | | + + + + + CBC+DIFF,POC (11/15/2015 8:20 AM PDT) + + + + + + | Component | Value | Ref Range | Performed | Pathologist | | | | | At | Signature | + + + + + + | WBC POC | 5.2 | 4.4 - 11.0 | [facility] - [...] + + + | HGB POC | 12.2 (L) | 13.5 - 17.5 | [facility] - | | | | | g/dL | [facility] | | | | | | RUTHIE CARTER | | | | | | OF CARE | | | | | | TESTS | | + + + + + + | HCT POC | 35.8 (L) | 41.0 - 53.0 % | [facility] - | | | | | | [facility] | | | | | | RUTHIE CARTER | | | | | | OF CARE | | | | | | TESTS | | + + + + + + | MCV POC | 102.3 (H) | 80.0 - 96.0 fL | [facility] - | | | | | | [facility] | | | | | | RUTHIE CARTER | | | | | | OF CARE | | | | | | TESTS | | + + + + + + | MCH POC | 34.9 (H) | 28.5 - 32.3 pg | [...] + + | RDW SD, POC | 59.8 (H) | 35.1 - 46.3 fL | [facility] - | | | | | | [facility] | | | | | | RUTHIE CARTER | | | | | | OF CARE | | | | | | TESTS | | + + + + + + | PLT POC | 28 (L) | 150 - 400 | [facility] [...] + + + + | NEUTROPHIL% | 56.5 | 50.0 - 70.0 % | [facility] - | | | POC | | | [facility] | | | | | | RUTHIE CARTER | | | | | | OF CARE | | | | | | TESTS | | + + + + + + | LYMPH% POC | 37.0 | 18 - 42 % | [facility] [...] [facility] | [address] | [place], [place] | | | [facility] POINT OF CARE | [address] | [address] | | | TESTS | | | | + + + + + LIVER SET (AST,ALT,BILI TOTAL,BILI DIRECT,ALK PHOS,ALB,PROT TOTAL) (11/15/2015 8:05 AM PDT ) + +---------+ + + [...] + + + | ALK PHOS | 53 | 53 - 128 U/L | [facility] [...] | + + + + + | [facility] | [address] | [place] [address] | | | SERVICES, CORE | [address] | | | + + + + + IGG, SERUM (11/15/2015 8:05 AM PDT) + +---------+ + + + | Component | Value | Ref Range | Performed | Pathologist | | | | | At | Signature | + +---------+ + + + | IGG SERUM | 499 (L) | 700 - 1600 | [facility] [...] + | [facility] - | [address] | [place] [address] | | | [place] | | | | + + + + + CMV PCR QUANTITATION, PLASMA (11/15/2015 8:05 AM PDT) + + + + + [...] is just barely above background consistent | [facility] | | with an extremely low level [...] and its performance characteristics determined by the [facility] | | | Diagnostic [facility]. It has not been | | | cleared or approved by the Food and Drug Administration. FDA approval | | | is not required for clinical use of this test, and therefore | | | validation was done as required under the requirements of the Clinical | | | Laboratory Improvement Act of 1988. The [facility] Diagnostic | | | [facility] is a fully licensed and/or | | | accredited clinical laboratory under CLIA, CAP, and the State of | | | [place]. | | + + + + + + + + | Performing | Address | City/State/Zipcode | Phone Number | | Organization | | | | + + + + + | [facility] | [address] | [place] [address] | | | DIAGNOSTIC | [address] | | | | LABORATORIES | | | | + + + + + TACROLIMUS, WHOLE BLOOD (11/15/2015 8:05 AM PDT) + +-------+ + + + | Component | Value | Ref Range | Performed | Pathologist | | | | | At | Signature | + +-------+ + + + | TACROLIMUS | 12.1 | 5.0 - 15.0 | [facility] | [...] | + + + + + | [facility] | [address] | [place] [address] | | | SERVICES, SPECIAL | [address] [...]
--- OUTSIDE RECORDS SUMMARY | ~2019-05-17 | XMS | Encounter Summary ---
Demographics + + + | Address | [address] | | | [place] [address] | + + + | Home Phone [...] Team Providers + +------+ + | Care Receiving Clerk Name | Role | Phone | + +------+ + | Pending Pcp Addition | PCP | Unavailable | + +------+ + Encounter Details +--------+ + + + + | Date | Type | Department | Care Team | Description | +--------+ + + + + | 08/21/ | [facility] | Center for | Aspen Cummins FNP | labs | | 2017 | Encounter | Hematologic | [address] | | | | | Malignancies at | [address] | | | | | [address] | [place], [place] | | | | | [address] | [address] | | | | | [place] Mailcode: | [phone] | | | | | [facility] | | | | | | [place], | | | | | | [place] [address] | | | | | | [phone] | | | +--------+ + + + [...] | 2019 | Visit | Malignancy | [address] | | | | | [address] | | | | | | [place], [place] | | | | | | [address] | | | | | | [phone] | | | | | | | | +--------+---------+ + + + documented as of this encounter Visit Diagnoses Not on filedocumented in this encounter"
--- OUTSIDE RECORDS SUMMARY | ~2019-05-17 | XMS | Encounter Summary ---
Demographics + + + | Address | [address] | | | [place] [address] | + + + | Home Phone [...] Team Providers + +------+ + | Care Ocean Fishing Guide Name | Role | Phone | + +------+ + | Zayda Hinton | PCP | | + +------+ + Encounter Details +--------+ + + + + | Date | Type | Department | Care Team | Description | +--------+ + + + + | 07/05/ | Occupational Health Technician | Center for | Yari Garcia MD | | | 2017 | | Hematologic | [address] | | | | | Malignancies at | [address] | | | | | [place] | [place], [place] | | | | | [address] | [address] | | | | | [place] Mailcode: | [phone] | | | | | [facility] | | | | | | [place], | | | | | | [place] [address] | | | | | | [phone] | | | +--------+ + + + [...] Rd | | | | | | [place], [place] | | | | | | [address] | | | | | | [phone] | | | | | | | | +--------+---------+ + + + documented as of this encounter Visit Diagnoses Not on filedocumented in this encounter"
--- OUTSIDE RECORDS SUMMARY | ~2019-05-17 | XMS | Encounter Summary ---
Demographics + + + | Address | [address] | | | [place] [address] | + + + | Home Phone [...] Team Providers + +------+ + | Care Obstetrics Scrub Nurse Name | Role | Phone | + +------+ + | Zayda Hinton | PCP | | + +------+ + Encounter Details +--------+ + + + + | Date | Type | Department | Care Team | Description | +--------+ + + + + | 10/17/ | Pharmacy | Specialty Pharmacy | | | | 2015 | Visit | Services [address] | | | | | [address] | | | | | | [place], [place] | | | | | | [address] | | | | | | [phone] | | | +--------+ + + + [...] 2019 | Visit | Malignancy | [address] [facility] | | | | | | [address] | | | | | | [place], [place] | | | | | | [address] | | | | | | [phone] | | | | | | | | +--------+---------+ + + + documented as of this encounter Visit Diagnoses Not on filedocumented in this encounter"
--- OUTSIDE RECORDS SUMMARY | ~2019-05-17 | XMS | Encounter Summary ---
Demographics + + + | Address | [address] | | | [place] [address] | + + + | Home Phone [...] Team Providers + +------+ + | Care Filter Tank Operator Name | Role | Phone | [...] | | | | | achieved | [facility] [place] | [facility] | | | | | remission | [address] | [facility] | | | | | | Phone: | Pavilion | | | | | Procedures | [phone] | [place], [place] | | | | | Post BMT | Fax: | [address] | | | | | Auth to | [phone] | Phone: | | | | | included | | [phone] | | | | | facility, | | Fax: | | | | | diagnostics, | | [phone] | | | | | office | [...] | Visit | Hematologic | PA-C [address] [facility] [facility] | leukemia (AML), M4 | | | | Malignancies at | [address] | ([facility])- primary | | | | [facility] | [place], [place] | induction failure | | | | [address] [facility] | [address] | (Primary Dx); S/P | | | | [address] Mailcode: | [phone] | allogeneic bone | | | | [facility] [address] | | marrow transplant | | | | [facility] [place], | | ([facility]) | | | | [place] [address] | | | | | | [phone] | | | +--------+---------+ + + + [...] MM URD (DPB1 permissive antigen mismatch, male, 4099-2540-2) Hematologic History: Khurram Kelly is a 25 [...] his L ankle. He was evaluated at [facility] ED on 06/[address] angiogram negative [...] acute myelomonocytic leukemia. He was referred to [facility] for further evaluation and man agement of his newly dx'd AML. Pt was admitted to [facility] on 05/26/15. Peripheral blood was sent for [...] CD34, variable CD56, variable CD117, and dim BH221-vwzvn mickey; promonocyte immunophenotype (70% by flow): CD11b, [...] e 1 mg capsule) in the evening. [place] 0.5 mg capsules for future use. TACROLIMUS 1 MG CAPSULE Take 1 mg (one 1 mg capsule) by mouth in the morning and 1 mg (one 1 mg capsule) in the evening. [place] 0.5 mg capsules for future use. TRIAMCINOLONE [...] eruption of lymphocyte recovery and early mild cmyzb-mzfblb-nadl disease. On 09/13, rash in volved ~15% [...] by 50% from original dose per Dr. Garica, prednisone 35 mg daily. Then tap er [...] Saunders PA-C [facility] [address] Mailcode: [place] [address] documented in this encounter Plan [...] 2018 | Visit | Malignancy | [address] [facility] | | | | | | [address] | | | | | | [place], [place] | | | | | | [address] | | | | | | [phone] | | | | | | | [...] [facility] | [address] | [place], [place] | | | RUTHIE CARTER OF CARE | [facility] | [address] | | | TESTS | | | [...] [facility] | [address] | [place], [place] | | | [facility] POINT OF CARE | [address] | [address] | | | TESTS | | | [...] | + + + + + | [facility] | [address] | [place] [address] | | | SERVICES, SPECIAL | PARK [...] and its performance characteristics determined by the [facility] | | | Diagnostic Laboratories [...] | Laboratory Improvement Act of 1988. The [facility] Diagnostic | | | Laboratories [facility] is a fully licensed and/or | | | accredited clinical laboratory under CLIA, CAP, and the State of | | | [place]. | | + + + + + + + + | Performing | Address | City/State/[facility] | Phone Number | | Organization | | | | + + + + + | [facility] | [address] | [place] [address] | | | DIAGNOSTIC | [address] [...] | + + + + + | [facility] | [address] | [place] [address] | | | SERVICES, SPECIAL | WALLY [...] + | [facility] - | [address] | [place] [address] | | | [place] | | | [...] + + | [facility] | [address] | [place] [address] | | | SERVICES, CORE | PARK [...] [facility] | [address] | [place] [address] | | | SERVICES, CORE | PARK [...]
--- OUTSIDE RECORDS SUMMARY | ~2019-05-17 | XMS | Encounter Summary ---
Demographics + + + | Address | [address] | | | [place] [address] | + + + | Home Phone [...] Team Providers + +------+ + | Care Fire Lieutenant Marine Name | Role | Phone | + +------+ + | Pending Pcp Addition | PCP | Unavailable | + +------+ + Reason for Visit +--------+ + | Reason | Comments | +--------+ + | Rash | spreading to bilateral thighs and groin area | +--------+ + Encounter Details +--------+ + + + + | Date | Type | Department | Care Team | Description | +--------+ + + + + | 09/14/ | Telephone | Center for | Ravi Jenkins FNP | Rash (spreading to | | 2015 | | Hematologic | [address] | bilateral thighs and | | | | Malignancies at [facility] | [address] [place], | groin area) | | | | [address] | [place] [address] | | | | | [address] Mailcode: | [phone] | | | | | [facility] [address] | | | | | | [place], | | | | | | [place] [address] | | | | | | [phone] | | | +--------+ + + + [...] 2019 | Visit | Malignancy | [address] [facility] | | | | | | [address] | | | | | | [place] | | | | | | [address] | | | | | | [phone] | | | | | | | | +--------+---------+ + + + documented as of this encounter Visit Diagnoses Not on filedocumented in this encounter"
--- OUTSIDE RECORDS SUMMARY | ~2019-05-17 | XMS | Encounter Summary ---
Demographics + + + | Address | [address] | | | [place] [address] | + + + | Home Phone [...] Team Providers + +------+ + | Care Lithographic Retoucher Apprentice Name | Role | Phone | + [...] Rd | | | | | | [place], [place] | | | | | | [address] | | | +--------+ + + + [...] | | | | | | [place] | | | | | | [address] | | | | | | [phone] | | | | | | | | +--------+---------+ + + + documented as of this encounter Visit Diagnoses Not on filedocumented in this encounter"
--- OUTSIDE RECORDS SUMMARY | ~2019-05-17 | XMS | Encounter Summary ---
Demographics + + + | Address | [address] | | | [place] [address] | + + + | Home Phone [...] Team Providers + +------+ + | Care Postdoctoral Fellow Name | Role | Phone | + +------+ + | Pending Pcp Addition | PCP | Unavailable | + +------+ + Reason for Visit + + + | Reason | Comments | + + + | Lab Draw | neostar | + + + | Dressing change | neostar | + + + | Intravenous infusion | vidaza | + + + Chemotherapy [...] | | | | ic leukemia, | [facility] | [facility] | | | | | not having | [address] | [place] | | | | | achieved | [facility] [place], [place] | Rd Mailcode: | | | | | remission | [address] | [id number] | | | | | Procedures | Phone: | [place] | | | | | [place] | [phone] | Pavilion | | | | | AZACITIDINE | Fax: | [place], [place] | | | | | INJECTION, 1 | [phone] | [address] | | | | | [facility] [place] | | Phone: | | | | | CHM,IV | | [phone] | | | | | INFSN,1 HR | | Fax: | | | | | [place] CHM,IV | | [phone] | | | | | INFSN,ADDL | | | | | | | HR Vidaza | | | +--------+---------+ + + + + Encounter Details +--------+ + + + + | Date | Type | Department | Care Team | Description | +--------+ + + + + | 11/28/ | Clinical | Center for | | Lab Draw (neostar); | | 2015 | Support | Hematologic | | Dressing change | | | Staff | Malignancies at [facility] | | (neostar); | | | | [address] | | Intravenous infusion | | | | [address] Mailcode: | | (vidaza) | | | | [id number] | | | | | | [place], | | | | | | [place] [address] | | | | | | [phone] | | | +--------+ + + + [...] documented as of this encounter Progress Notes Diana Hodgson RN - 11/29/2015 2:49 PM PDTPrimary CHM MD: Yari Garcia MD Primary Oncologist: Yari Garcia MD Diagnosis: AMML, primary refractory Transplant Date: 08/27/15 Donor: MM URD (DPB1 permissive antigen mismatch, male, [id number]) Assessment Pain: none Fever or chills: none Fatigue or sleep disturbance: none Dizziness: none Neuropathy: none Mucositis: none Dyspnea, cough: none Signs of bleeding: none Nausea, vomiting or loss of appetite: none Fluid intake: 2L Diarrhea or constipation: none Edema: none 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 [place] noti juan a the rash slightly increased in redness Patient narrative: Pt ambulated with infusion room with spouse. Here for lab draw and vid aza infusion Infusion plan: none at this time. Supportive plan: none at this time Chemo plan: BHARAT-Aspen VILLALBA-ok to give chemotherapy today. Chemotherapy was checked b y 2 RNs. Vidaza 70mg infusion given per chemotherapy protocol. Positive blood return noted pre and post infusion. For infusion details, see MAR. Vidaza dose increased from 65mg to 7 0mg based on a 5% increase in BSA from Aspen VILLALBA. Neostar intact to left anterior chest wall without erythema or induration. Dressing remove d, skin intact without s/s exit site or tunnel infection. Using a Central Line Dressing Lora nge kit, site cleansed with Chloraprep. Skin prep applied prior to dressing application. B iopatch applied with Tegaderm dressing. Positive pressure valves changed to each port. Al l lumens pulse flushed with 10ml NS and 5 mL of 10 units/mL Heparin. Patient tolerated proce dure without difficulty. VAD Lab Draw: Neostar accessed per protocol. Good blood return noted. Appropriate waste discarded. Lab s drawn and sent. Neostar pulse flushed with 20 mL NS. Pt took tacrolimus prior to clinic appointment. Notified Aspen VILLALBA, will draw level 11/29 with next clinic appointment. Pt verbalized that he will not take dose prior to appoi ntmchristina. Khurram to return to clinic 11/29 for next Vidaza infusion. Pentamidine infusion due 12/06. Pt verbalized discharge instructions, chemotherapy, neutropenic precautions and when to ca clinic. documented in thi s encounter Plan of Treatment +--------+---------+ + + [...] Rd | | | | | | [place], [place] | | | | | | [address] | | | | | | [phone] | | | | | | | | +--------+---------+ + + + documented as of this encounter Procedures + +--------+ + + + | Procedure Name | Priori | Date/Time | Associated Diagnosis | Comments | | | ty | | | | + +--------+ + + + | TREATMENT PARAMETERS | Routin | 11/29/2015 | Acute myeloid | | | #1 - BEACON | e | 1:36 PM | leukemia (AML), M4 | | | | | PDT | ([facility])- primary | | | | | | induction failure | | + +--------+ + + + | CBC+DIFF,POC | Routin | 11/29/2015 | S/P allogeneic | Results for this | | | e | 1:05 PM | bone marrow | procedure are in the | | | | PDT | transplant (HCC) | results section. 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[facility])- primary | | | | | | induction failure | | + +--------+ + + + | BMP + MAG, POC CHM | Routin | 11/29/2015 | S/P allogeneic | Results for this | | | e | 1:01 PM | bone marrow | procedure are [...] + | LIVER SET | Urgent | 11/29/2015 | S/P allogeneic | Results for this | | (AST,ALT,BILI | | 12:38 PM | bone marrow | procedure are [...] + | IGG, SERUM | Routin | 11/29/2015 | S/P allogeneic | Results for this | | | e | 12:37 PM | bone marrow | procedure are [...] + | TREATMENT PARAMETERS | Routin | 11/29/2015 | 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 | 12:36 PM | leukemia (AML), M4 | | | | | PDT | ([facility])- primary | | | | | | induction failure | | + +--------+ + + + | TREATMENT PARAMETERS | Routin | 11/29/2015 | 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 | 12:36 PM | leukemia (AML), 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 | | | | | | induction failure | | + +--------+ + + + | TREATMENT PARAMETERS | Routin | 11/29/2015 | 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 | 12:36 PM | leukemia (AML), 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 | | | | | | induction failure | | + +--------+ + + + | TREATMENT PARAMETERS | Routin | 11/29/2015 | 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 | 12:36 PM | leukemia (AML), 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 | | | | | | induction failure | | + +--------+ + + + | TREATMENT PARAMETERS | Routin | 11/29/2015 | 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 | 12:36 PM | leukemia (AML), 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 | | | | | | induction failure | | + +--------+ + + + | NURSING | Routin | 11/29/2015 | S/P allogeneic | | | COMMUNICATION #5 - | e | 12:36 PM | bone marrow | | | BEACON | | PDT | transplant (HCC) | 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 | | + +--------+ + + + | NURSING | Routin | 11/29/2015 | S/P allogeneic | | | COMMUNICATION #4 - | e | 12:36 PM | bone marrow | | | BEACON | | PDT | transplant (HCC) | 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 | | + +--------+ + + + | NURSING | Routin | 11/29/2015 | S/P allogeneic | | | COMMUNICATION #3 - | e | 12:36 PM | bone marrow | | | BEACON | | PDT | transplant (HCC) | 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 | | + +--------+ + + + | NURSING | Routin | 11/29/2015 | S/P allogeneic | | | COMMUNICATION #3 - | e | 12:36 PM | bone marrow | | | BEACON | | PDT | transplant (HCC) | 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 | | + +--------+ + + + | NURSING | Routin | 11/29/2015 | S/P allogeneic | | | COMMUNICATION #2 - | e | 12:36 PM | bone marrow | | | BEACON | | PDT | transplant (HCC) | 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 | | + +--------+ + + + | NURSING | Routin | 11/29/2015 | S/P allogeneic | | | COMMUNICATION #2 - | e | 12:36 PM | bone marrow | | | BEACON | | PDT | transplant (HCC) | 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[facility])- primary | | | | | | induction failure | | + +--------+ + + + | NURSING | Routin | 11/29/2015 | S/P allogeneic | | | COMMUNICATION #1 - | e | 12:36 PM | bone marrow | | | BEACON | | PDT | transplant (HCC) | 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[facility])- primary | | | | | | induction failure | | + +--------+ + + + | NURSING | Routin | 11/29/2015 | S/P allogeneic | | | COMMUNICATION #1 - | e | 12:36 PM | bone marrow | | | [facility]ACON | | PDT | transplant (HCC) | 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 | | + +--------+ + + + | GUIDELINES FOR | Routin | 11/29/2015 | S/P allogeneic | | | ORDERING #1 - BEACON | e | 12:36 PM | bone marrow | | | | | PDT | transplant (HCC) | 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 | | + +--------+ + + + | TREATMENT PARAMETERS | Routin | 11/29/2015 | S/P allogeneic | | | #1 - BEACON | e | 12:36 PM | bone marrow | | | | | PDT | transplant (HCC) | 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 | | + +--------+ + + + | TREATMENT PARAMETERS | Routin | 11/29/2015 | S/P allogeneic | | | #1 - BEACON | e | 12:36 PM | bone marrow | | | | | PDT | transplant (HCC) | 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[facility])- primary | | | | | | induction failure | | + +--------+ + + + | TREATMENT PARAMETERS | Routin | 11/29/2015 | S/P allogeneic | | | #1 - BEACON | e | 12:36 PM | bone marrow | | | | | PDT | transplant (HCC) | 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[facility])- primary | | | | | | induction failure | | + +--------+ + + + documented in this encounter Results CBC+DIFF,POC (11/29/2015 1:05 PM PDT) + + + + + + | Component | Value | Ref Range | Performed | Pathologist | | | | | At | Signature | + + + + + + | WBC POC | 6.3 | 4.4 - 11.0 | [facility] - | | | | | 10*3/uL | [place] | | | | | | [facility] POINT | | | | | | OF CARE | | | | | | TESTS | | + + + + + + | RBC POC | 3.58 (L) | 4.50 - 6.00 | [facility] [...] + + + | MCH POC | 35.5 (H) | 28.5 - 32.3 pg | [...] + + | RDW SD, POC | 59.1 (H) | 35.1 - 46.3 fL | [facility] - | | | | | | [place] | | | | | | [facility] POINT | | | | | | OF CARE | | | | | | TESTS | | + + + + + + | PLT POC | 72 (L) | 150 - 400 | [facility] [...] + + + + | NEUTROPHIL% | 65.7 | 50.0 - 70.0 % | [facility] - | | | POC | | | [place] | | | | | | EM[facility], POINT | | | | | | OF CARE | | | | | | TESTS | | + + + + + + | LYMPH% POC | 23.8 | 18 - 42 % | [facility] - | | | | | | [place] | | | | | | [facility], POINT | | | | | | OF CARE | | | | | | TESTS | | + + + + + + | MONO %, POC | 9.9 (H) | 3.5 - 9.0 % | [...] + + + | [facility] | [address] | [place], [place] | | | RUTHIE CARTER OF CARE | [address] | [address] | | | TESTS | | | | + + + + + BMP + PHIL ROBERTSON CHDavid (11/29/2015 1:01 PM PDT) + +---------+ + + + [...] + + + | BUN, POC | 19 | 6 - 20 mg/dL | [facility] [...] + + + | LDH, POC | 256 (H) | 0 - 206 U/L | [...] + + + | [facility] S[facility] | [address] | [place], [place] | | | [facility] POINT OF CARE | [address] | [address] | | | TESTS | | | | + + + + + LIVER SET (AST,ALT,BILI TOTAL,BILI DIRECT,ALK PHOS,ALB,PROT TOTAL) (11/29/2015 12:38 PM PDT ) + +---------+ + + [...] [facility] | [address] | [place] [address] | | | SERVICES, INDRA | [address] | | | + + + + + IGG, SERUM (11/29/2015 12:37 PM PDT) + +---------+ + + + | Component | Value | Ref Range | Performed | Pathologist | | | | | At | Signature | + +---------+ + + + | IGG SERUM | 504 (L) | 700 - 1600 | [facility] [...] | + + + + + | [facility] | [address] | [place] [address] | | | [place] | | | [...] 70 mg in | New Bag | 11/29/19 | 70 mg | 214 | Central | | NaCl 0.9 % IV 70 mg (rounded | | 16 2:35 | | mL/hr | Line | | from 67.84 mg = 32 mg/m2 | | PM PDT | | | | | 2.12 m2 Treatment plan recorded | | | | | | | BSA), intravenous, Administer | | | | | | | over 30 Minutes, ONCE, 1 dose, | | | | | | | 11/29/15 at 1345, HIGH RISK | | | | | | | MEDICATION-CHEMOTHERAPY | | | | | | | Administration must be completed | | | | | | | within 1 hour of preparation., | | | | | | + +---------+ +-------+-------+ + +---+---+ | | | +---+---+ + +-------+ + +---+---+ | heparin 10 unit/mL IV flush | Given | 11/29/19 | 50 Units | | | | syringe 50 Units 50 Units, | | 16 3:22 | | | | | Intracatheter, NEEDED, | | PM PDT | | | | | Starting 11/29/15 at 1741, | | | | | | | Until Sun11/30/15 at 0039, line | | | | | | | patency | | | | | | + +-------+ + +---+---+ +-------+ + +---+---+ | Given | 11/29/19 | 50 Units | | | | | 16 3:21 | | | | | | PM PDT | | | | +-------+ + +---+---+ | Given | 11/29/19 | 50 Units | | | | | 16 3:20 | | | | | | PM PDT | | | | +-------+ + +---+---+ +---+---+ | | | +---+---+ + +-------+ +------+---+---+ | ondansetron (ZOFRAN) tablet 8 | Given | 11/29/19 | 8 mg | | | | mg 8 mg, oral, ONCE, 1 dose, Mon | | 16 1:50 | | | | | 11/29/15 at 1345 | | PM PDT | | | | + +-------+ +------+---+---+ +---+---+ | | | +---+---+ documented in this encounter"
--- OUTSIDE RECORDS SUMMARY | ~2019-05-17 | XMS | Encounter Summary ---
Demographics + + + | Address | [address] | | | [place] [address] | + + + | Home Phone [...] Team Providers + +------+ + | Care Director Of Nuclear Medicine Name | Role | Phone | + +------+ + | Zayda Hinton | PCP | | + +------+ + Encounter Details +--------+ + + + + | Date | Type | Department | Care Team | Description | +--------+ + + + + | 05/24/ | Hospital | Pulmonary Function | Tech, Pfl Adult | | | 2017 | Encounter | Lab at [facility] [address] | | | | | [address] | [facility] | | | | | Mailcode: [facility] | [place] [address] | | | | | [place] | | | | | | [address] [place], [place] | | | | | | [address] | | | | | | [phone] | | | +--------+ + + + [...] Rd | | | | | | [place], [place] | | | | | | [address] | | | | | | [phone] | | | | | | | | +--------+---------+ + + + documented as of this encounter Procedures + +--------+ + + + | Procedure Name | Priori | Date/Time | Associated Diagnosis | Comments | | | ty | | | | + +--------+ + + + | SPIROMETRY, PULM | Routin | 05/24/2017 | S/P allogeneic | Results for this | | FUNCTION LAB | e | 9:26 AM | bone marrow | procedure are in the | | | | PST | transplant (HCC) | results section. | + +--------+ + + + documented in this encounter Results SPIROMETRY, PULM FUNCTION LAB (05/24/2017 9:26 AM PST) + + + + + + | Component | Value | Ref Range | Performed | Pathologist | | | | | At | Signature | + + + + + + | PULMONARY | Site: [facility] | | [facility] | | | INTERPRETAT | [facility], [address] | [address] | | [address] [facility] | | DIAGNOSTICS | | | | [address],[place], [place], | | - | | | | [address]TW: [id number] | | PULMONARY | | | | Name: PAIGEAudreyCARL, | | FUNCTION | | | | KHURRAM Marcelino | | | | | | Date: 05/24/2017 | | | | | | Second ID: | | | | | | [id number]: | | | | | | KandiAdarsh laresAge: 26 | | | | | | [...] | | | | | | 7.23 [id number] (L) | | | | | | | | | | | | 5.06 5.50 | | | | | | [id number]/FVC (%) | | | | | | [...] + + + + + + | UOL79-95% | 4.74 | 5.02 L/sec | [facility] | | | PRE | | | SPECIAL | | | | | | DIAGNOSTICS | | | | | | - | | | | | | PULMONARY | | | | | | FUNCTION | | + + + + + + | OLK52-87% | 94 | % | [facility] | [...] [facility] | [address] | [place], [place] | | | DIAGNOSTICS - | [address] | [address] | | | PULMONARY FUNCTION | | | | + + + + + documented in this encounter Visit Diagnoses + + | Diagnosis | + + | 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
--- OUTSIDE RECORDS SUMMARY | ~2019-05-17 | XMS | Encounter Summary ---
Demographics + + + | Address | [address] | | | [place] [address] | + + + | Home Phone [...] Team Providers + +------+ + | Care Building Insulation Supervisor Name | Role | Phone | [...] | | | | | | [place], | | | | | | | [place] | | | | | | | [address] | | | | | | | Phone: | | | | | | | [phone] | | | | | | | Fax: | | | | | | | [phone] | +--------+--------+ + + + + Encounter [...] (HCC) (Primary Dx) | | | | [address] | [place], [place] | | | | | [address] | [address] | | | | | [address] Mailcode: | [phone] | | | | | [id number] [address] | | | | | | [place], | | | | | | [place] [address] | | | | | | [phone] | | | +--------+---------+ + + + [...] FNP - 03/15/2016 7:24 AM PDT 03/15/2016 [place] [facility] Primary CHM MD: Yari Garcia MD Primary Oncologist: Yari Garcia MD Diagnosis: AMML, 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 He was evaluated at [facility] ED on 06/[address] angiogram negative [...] acute myelomonocytic leukemia. He was referred to [facility] for further evaluation and man agement of his newly dx'd AML. Pt was admitted to [facility] on 05/26/15. Peripheral blood was [...] CD34, variable CD56, variable CD117, and dim HI690-cydzo mickey; promonocyte immunophenotype (70% by flow): CD11b, [...] marrow studies after c6 of azacitidine 2. Hqdcq-te-Vavw Disease: Skin bx due to mild rash [...] he was seen in the ED in [place] in late 01/21. Prednisone was increased back [...] daily --> pt provided with information for [employer] to establish peer support --> look into AYA support group resources available at [facility] 7. Follow up --> scheduled to begin c6 of azacitidine on 03/20/16 --> RTC to f/u with me on 03/22/16, sooner prn [facility] [place] [address] [facility] [address] Mailcode: [place] [phone] documented in this enc ounter Plan of [...] | | | | | | [place], [place] | | | | | | [address] | | | | | | [phone] | | | | | | | [...]
--- OUTSIDE RECORDS SUMMARY | ~2019-05-17 | XMS | Encounter Summary ---
Demographics + + + | Address | [address] | | | [place] [address] | + + + | Home Phone [...] Providers + +------+ + | Care Gas Operations Superintendent Name | Role | Phone | + [...] | | | [address] | [facility] | | | | | Mailcode: UHS13 | [place] [address] | | | | | [place] | | | | | | [address] [place], [place] | | | | | | [address] | | | | | | [phone] | | | +--------+ + + + [...] 2019 | Visit | Malignancy | [address] | | | | | | [address] | | | | | | [place], [place] | | | | | | [address] | | | | | | [phone] | | | | | | | [...] + + + | PULMONARY | Site: [facility] and | | [facility] | | | INTERPRETAT | [facility], [address] | | SPECIAL | | | [address] | [address] [facility] | | DIAGNOSTICS | | | | Rd,[place], [place], | | - | | | | [address]BJ: [id number] | | PULMONARY | | | | Name: PAIGEAudreyCARL, | | FUNCTION | | | | KHURRAM Marcelino | | | | | | Date: 05/24/2017 | | | | | | Second ID: | | | | | | [id number]: | | | | | | KandiAdarsh [...] | | | | | | 7.23 [id number] (L) | | | | | | | | | | | | 5.06 5.50 | | | | | | [id number]/FVC (%) | | | | | | [...] + + + + + + | IHL57-47% | 4.74 | 5.02 L/sec | [facility] | | | PRE | | | SPECIAL | | | | | | DIAGNOSTICS | | | | | | - | | | | | | PULMONARY | | | | | | FUNCTION | | + + + + + + | GLE32-70% | 94 | % | [facility] | [...] Y[facility] HARPER | [address] | [place], [place] | | | DIAGNOSTICS - | [address] | [address] | | | PULMONARY FUNCTION | | | | + + + + + documented in this encounter Visit Diagnoses + + | Diagnosis | + + | 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
--- OUTSIDE RECORDS SUMMARY | ~2019-05-17 | XMS | Encounter Summary ---
Demographics + + + | Address | [address] | | | [place] [address] | + + + | Home Phone [...] Team Providers + +------+ + | Care Barrel Bridge Assembler Name | Role | Phone | [...] | | | | | | [place], | | | | | | | [place] | | | | | | | [address] | | | | | | | Phone: | | | | | | | [phone] | | | | | | | Fax: | | | | | | | [phone] | +--------+--------+ + + + + Encounter Details +--------+---------+ + + + | Date | Type | Department | Care Team | Description | +--------+---------+ + + + | 06/15/ | Office | Center for | Aspen Cummins FNP | S/P allogeneic bone | | 2016 | Visit | Hematologic | [address] | marrow transplant | | | | Malignancies at | [address] | (HCC) (Primary Dx) | | | | [place] | [place], [place] | | | | | [address] | [address] | | | | | [address] Mailcode: | [phone] | | | | | [id number] [place] | | | | | | [place], | | | | | | [place] [address] | | | | | | [phone] | | | +--------+---------+ + + + [...] + + + | Blood Pressure | 147/89 | 06/15/2016 10:57 AM | | | | | PST | | + + + + + | Pulse | 91 | 06/15/2016 10:57 AM | | | | | PST | | + + + + + | Temperature | 36.8 C (98.3 F) | 06/15/2016 10:57 AM | | | | | PST | | + + + + + | Respiratory Rate | 16 | 06/15/2016 10:57 AM | | | | | PST | | + + + + + | Oxygen Saturation | 97% | 06/15/2016 10:57 AM | | | | | PST | | + + + + + | Inhaled Oxygen | - | - | | | Concentration | | | | + + + + + | Weight | 93.9 kg (207 lb) | 06/15/2016 10:57 AM | | | | | PST | | + + + + + | Height | - | - | | + + + + + | Body Mass Index | 26.29 | 01/25/2016 8:24 AM | | | | | PDT | | + + + + + documented in this encounter Progress Notes Aspen Cummins, [place] - 06/15/2016 10:45 AM PST 06/15/2016 [facility] MD: Yari Garcia MD Primary Oncologist: Yari Garcia MD Diagnosis: AMML, 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 He is currently day +293 s/p transplant, s/p 6 cycles of azacitidine and returns to clinic today for scheduled follow-up. Interim History: Khurram was most recently evaluated in our [facility] by me on 05/29/16. He travelled to [facility] for Thanksgiving, had a good visit with family and friends. Appetite is good, no c/o N/V/D. Notes mild erythema to skin this morning with acniform rash to upper chest. Also reports tenderness to nipples over th e last week. Continues to take xanax for anxiety. Feels his symptoms are well controlled at this time. He has not yet started paxil. Forgot to pickle maker his prescription prior to heading out of to , just started medication on 06/12/16. Also has not taken amlodipine for the last few days as he ran out. Review of Systems Constitutional: Negative for chills, fever and malaise/fatigue. HENT: Negative for headaches, congestion and sore throat. Respiratory: Positive for cough (resolving) and sputum production (intermittent, clear). Ne gative for shortness of breath. Cardiovascular: Negative for chest pain and leg swelling. Gastrointestinal: Negative for abdominal pain, constipation, diarrhea, nausea and vomiting. Genitourinary: Negative for dysuria. Musculoskeletal: Negative for joint pain and myalgias. Skin: Positive for rash (papules to chest, just noted this AM). Neurological: Negative for dizziness, tingling, tremors and weakness. Psychiatric/Behavioral: The patient is nervous/anxious (well controlled at present). All other systems reviewed and are negative. [...] for dresssing change per pt. Filed Vitals: 06/15/2016 10:57 AM Weight: 93.9 kg (207 lb) BP: 147/89 Pulse: 91 Temp: 36.8 C (98.3 F) TempSrc: Oral Resp: 16 SpO2: 97% PainSc: 0 - Zero BMI: 26.29 kg/(m^2) Physical Exam Constitutional: He is well-developed, well-nourished, and in no distress. HENT: Head: Normocephalic and atraumatic. Mouth/Throat: Oropharynx is clear and moist. No oropharyngeal exudate. Eyes: Conjunctivae are normal. Pupils are equal, round, and reactive to light. Cardiovascular: Normal rate, regular rhythm, normal heart sounds and intact distal pulses. No murmur heard. Pulmonary/Chest: Effort normal. No respiratory distress. He has no wheezes. He has no rales . Upper airway sounds Abdominal: Soft. Bowel sounds are normal. He exhibits no distension. There is no tenderness . Musculoskeletal: He exhibits no edema. Neurological: He is alert. Skin: Skin is warm and dry. Rash (scattered papules to upper chest) noted. There is erythem a (very faint patchy erythema to trunk). Psychiatric: Mood and affect normal. Vitals reviewed. Lab Results Component Value Date WBC 4.9 06/15/2016 HB 14.3 06/15/2016 HCT 42.1 06/15/2016 PLT 180 06/15/2016 MCV 97.0 06/15/2016 RDW 44.9 05/01/2016 Lab Results Component Value Date BICARB 24 06/15/2016 TBILI 0.3 06/15/2016 CA 9.2 06/15/2016 CL 104 06/15/2016 CR 0.9 06/15/2016 GLU 111 (H) 06/15/2016 AP 106 06/15/2016 TP 6.8 06/15/2016 BUN 8 06/15/2016 ALB 3.9 06/15/2016 AST 31 06/15/2016 NA 133 (L) 06/15/2016 K 4.2 06/15/2016 ALT 64 (H) 06/15/2016 Assessment/Plan: 1. Hematology: Khurram Kelly is currently day +293 s/p tBuCy-conditioned unrel ated donor PBSC transplant for primary refractory AML, s/p 6 cycles of azacitidine for post- transplant relapse. Peripheral blood counts WNL with decrease in WBC, likely secondary to cu rrent URI. Counts o/w WNL. He has no evidence of disease by peripheral smear. His most re cent marrow studies completed 04/19/16 showed a patchy hypocellular (less than 5% to 50%) pretty ne marrow with trilineage hematopoiesis and < 3% myeloid blasts. Karyotype 46,XY[20]. VNTR s howed no detectable host cells. Genetrails remained positive for IL7R (~50%, likely benign g ermline polymorphism of donor origin). --> continue CBC q2 weeks --> anticipate repeat marrow studies in conjunction with his one year anniversary, sooner p rn 2. Ipyaz-mq-Ogvj Disease: Skin bx due to mild rash [...] he was seen in the ED in [place] in late 01/21. Prednisone was increased back [...] rash. Continues low dose tacrolimus, budesonide . Faint erythema noted today with acne to chest, unlikely GvHD. He has no other s/s suspici ous for GvHD at this time. --> continue prednisone 5 mg po every other day alt with 2.5 mg po every other day --> continue tacrolimus 0.5 mg bid without additional taper --> d/c budesonide 3. Infectious Disease: Afebrile without localizing s/s [...] and inact ivated influenza vaccine dosed 04/19/16. --> continue acyclovir and bactrim as prescribed --> PCV13 #2 and repeat inactivated influenza vaccine next visit 4. Fluid, Electrolyte and Nutrition: Continues to eat well without c/o N/V/D. PO fluid int lola adequate. His electrolytes are reviewed and are within acceptable limits. --> continue a well balanced diet --> maintain hydration 5. Cardiovascular: Pretransplant TTE completed 08/10/15 showed a LVEF of 55-60%. CNI-induced HTN, typically well controlled with current meds. Pt is HTNive today, notes he has been of f amlodipine for 3 days. --> refill amlodipine today, advised pt to restart --> anticipate HTN will improve with tacrolimus [...] a peer support group or support at [facility], rubia oates felt this was no longer necessary. Over the last few weeks he has noted an increase in h is anxiety, increased xanax to ~4 mg po daily, then ran out of medication and suffered withd marisela symptoms. Feels his anxiety is well controlled again but is again amenable to Transiti ons. He is also amenable to antidepressant therapy; started Paxil on 06/12/16. --> reinforced pt should take xanax only as prescribed --> ongoing support from Kezia Stokes LCSW --> continue paroxetine 10 mg po daily x 14 days, then 20 mg po daily 7. Follow up --> RTC to f/u with me on 06/28/16, sooner prORLY [facility] AT [address] Mailcode: [place] [phone] documente d in this encounter Plan of Treatment +--------+---------+ [...] Rd | | | | | | [place], [place] | | | | | | [address] | | | | | | [phone] | | | | | | | | +--------+---------+ + + + documented as of this encounter Procedures + +--------+ + + + | Procedure Name | Priori | Date/Time | Associated Diagnosis | Comments | | | ty | | | | + +--------+ + + + | TESTOSTERONE, SERUM | Routin | 06/15/2016 | S/P allogeneic | Results for this | | | e | 10:10 AM | bone marrow | procedure are in the | | | | PST | transplant (HCC) | results section. | + +--------+ + + + documented in this encounter Results TESTOSTERONE, SERUM (06/15/2016 10:10 AM PST) + + + + + + | Component | Value | Ref Range | Performed | Pathologist | | | | | At | Signature | + + + + + + | TESTOSTERON | 821Comment: Total | 300 - 1080 | [facility] [...] | | | this test in the [facility] | | | | | | Laboratory Test | | | | | | Directory | | | | | | ([employer]).Performed | | | | | | by [facility],[address] | | | | | | [address], [facility],[place] | | | | | | [address] | | | | | | [phone].[employer]. | | | | | | Elmo greenwood, | | | | | | Lab. DILMA Director | | | | + + + + + + + + | Specimen | + + | Blood - Blood | | (substance) | + + + + + + + | Performing | Address | City/State/Zipcode | Phone Number | | Organization | | | | + + + + + | [facility] | [address] | [place], [place] | | | [facility] | | [address] | | + + + + + documented in this encounter Visit Diagnoses + + | Diagnosis | + + | 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
--- OUTSIDE RECORDS SUMMARY | ~2019-05-17 | XMS | Encounter Summary ---
Demographics + + + | Address | [address] | | | [place] [address] | + + + | Home Phone [...] Team Providers + +------+ + | Care Aerodynamics Engineer Name | Role | Phone | + +------+ + | No Pcp Per Patient | PCP | Unavailable | + +------+ + Reason for Visit + + + | Reason | Comments | + + + | Lab Draw | | + + + Office Visit [...] | not having | [address] | Mailcode: | | | | | achieved | [place], [place] | [id number] | | | | | remission | [address] | [place] | | | | | | Phone: | [facility] | | | | | Procedures | [phone] | [place], [place] | | | | | Post BMT | Fax: | [address] | | | | | Auth to | [phone] | Phone: | | | | | included | | [phone] | | | | | facility, | | Fax: | | | | | diagnostics, | | [phone] | | | | | office | | | | | | | visits and | | | | | | | surgery | | | +--------+---------+ + + + + Encounter Details +--------+ + + + + | Date | Type | Department | Care Team | Description | +--------+ + + + + | 12/28/ | Diagnostic | Center for | | Lab Draw | | 2017 | Visit | Hematologic | | | | | | Malignancies at | | | | | | [facility] | | | | | | [address] | | | | | | [address] Mailcode: | | | | | | [facility] [place] | | | | | | [place], | | | | | | [place] [address] | | | | | | [phone] | | | +--------+ + + + [...] this encounter Progress Notes Lincoln Hermosillo - 12/28/2016 8:30 AM PDTLeft AC accessed with a 23 gauge butterfly [...] [address] | | | | | | [place], [place] | | | | | | [address] | | | | | | [phone] | | | | | | | | +--------+---------+ + + + documented as of this encounter Procedures + +--------+ + + + | Procedure Name | Priori | Date/Time | Associated Diagnosis | Comments | | | ty | | | | + +--------+ + + + | BMP + MAG, POC CHM | Routin | 12/28/2016 | S/P allogeneic | Results for this | | | e | 9:21 AM | bone marrow | procedure are in the | | | | PDT | transplant (HCC) | results section. 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) | | + +--------+ + + + | CBC+DIFF,POC | Routin | 12/28/2016 | S/P allogeneic | Results for this | | | e | 9:05 AM | bone marrow | procedure are in the | | | | PDT | transplant (HCC) | results section. 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) | | + +--------+ + + + | LIVER SET | Urgent | 12/28/2016 | S/P allogeneic | Results for this | | (AST,ALT,BILI | | 8:41 AM | bone marrow | procedure are [...] encounter Results BMP + MAG, POC CHM (12/28/2016 9:21 AM PDT) + +---------+ + + + [...] + + + | LDH, POC | 234 (H) | 0 - 206 U/L | [...] [facility] | [address] | [place], [place] | | | [facility] | [address] | [address] | | | TESTS | | | | + + + + + CBC+DIFF,POC (12/28/2016 9:05 AM PDT) + + + + + + | Component | Value | Ref Range | Performed | Pathologist | | | | | At | Signature | + + + + + + | WBC POC | 7.5 | 3.5 - 10.8 | [facility] - [...] + + + | HCT POC | 43.2 | 41.0 - 53.0 % | [facility] - | | | | | | [facility] | | | | | | RUTHIE CARTER | | | | | | OF CARE | | | | | | TESTS | | + + + + + + | MCV POC | 99.1 (H) | 80.0 - 96.0 fL | [...] - | | | | | | [facility] | | | | | | RUTHIE [...] + + + | PLT POC | 130 (L) | 150 - 400 | [facility] - | | | | | 10*3/uL | [facility] | | | | | | [facility] | | | | | | OF CARE | | | | | | TESTS | | + + + + + + | MPV POC | 9.7 | 9.7 - 12.3 fL | [facility] | | | | | | [facility] | | | | | | [facility] | | | | | | OF CARE | | | | | | TESTS | | + + + + + + | NEUTROPHIL% | 63.0 | 50.0 - 70.0 % | [facility] - | | | POC | | | [facility] | | | | | | [facility], POINT | | | | | | OF CARE | | | | | | TESTS | | + + + + + + | LYMPH% POC | 25.2 | 18 - 42 % | [facility] - | | | | | | [facility] | | | | | | [facility], POINT | | | | | | OF CARE | | | | | | TESTS | | + + + + + + | MONO %, POC | 9.0 | 3.5 - 9.0 % | [facility] - | | | | | | [facility] | | | | | | [facility] | | | | | | OF CARE | | | | | | TESTS | | + + + + + + | EOS %, POC | 2.5 | 1.0 - 3.0 % [...] + + + + | CBC | PLT clp. Imm Gran. | | [facility] - | [...] [facility] | [address] | [place], [place] | | | [facility] | [address] | [address] | | | TESTS | | | | + + + + + LIVER SET (AST,ALT,BILI TOTAL,BILI DIRECT,ALK PHOS,ALB,PROT TOTAL) (12/28/2016 8:41 AM PDT ) + +---------+ + + [...] + + + | ALT (SGPT) | 81 (H) | <=60 U/L | [facility] | [...] [facility] | [address] | [place] [address] | | | SERVICES, CORE | PARK [...]
--- OUTSIDE RECORDS SUMMARY | ~2019-05-17 | XMS | Encounter Summary ---
Demographics + + + | Address | [address] | | | [place] [address] | + + + | Home Phone [...] Team Providers + +------+ + | Care Hydraulic Oil Tool Operator Name | Role | Phone | [...] | 2016 | | Hematologic | [address] | | | | | Malignancies at | [address] | | | | | [place] | [place], [place] | | | | | [address] | [address] | | | | | [address] Mailcode: | [phone] | | | | | [facility] | | | | | | [place], | | | | | | [place] [address] | | | | | | [phone] | | | +--------+--------+ + + + [...] | | | | | | [place] | | | | | | [address] | | | | | | [phone] | | | | | | | | +--------+---------+ + + + documented as of this encounter Visit Diagnoses Not on filedocumented in this encounter"
--- OUTSIDE RECORDS SUMMARY | ~2019-05-17 | XMS | Encounter Summary ---
Demographics + + + | Address | [address] | | | [place] [address] | + + + | Home Phone [...] Team Providers + +------+ + | Care Bias Cutter Helper Name | Role | Phone | + +------+ + | Zayda Hinton | PCP | | + +------+ + Encounter Details +--------+ + + + + | Date | Type | Department | Care Team | Description | +--------+ + + + + | 01/03/ | Pharmacy | Specialty Pharmacy | | | | 2015 | Visit | Services [address] | | | | | | [address] | | | | | | [place], [place] | | | | | | [address] | | | | | | [phone] | | | +--------+ + + + [...] Visit | Malignancy | [address] [facility] [address] | | | | | | [address] | | | | | | [place], [place] | | | | | | [address] | | | | | | [phone] | | | | | | | | +--------+---------+ + + + documented as of this encounter Visit Diagnoses Not on filedocumented in this encounter"
--- OUTSIDE RECORDS SUMMARY | ~2019-05-17 | XMS | Encounter Summary ---
Demographics + + + | Address | [address] | | | [place] [address] | + + + | Home Phone [...] Team Providers + +------+ + | Care Medical Billing And Coding Instructor Name | Role | Phone | + +------+ + | Zayda Hinton | PCP | | + +------+ + Encounter Details +--------+ + + + + | Date | Type | Department | Care Team | Description | +--------+ + + + + | 05/28/ | Pharmacy | Specialty Pharmacy | | | | 2015 | Visit | Services [address] | | | | | | [address] | | | | | | [place], [place] | | | | | | [address] | | | | | | [phone] | | | +--------+ + + + [...] [address] | | | | | | [place], [place] | | | | | | [address] | | | | | | [phone] | | | | | | | | +--------+---------+ + + + documented as of this encounter Visit Diagnoses Not on filedocumented in this encounter"
--- OUTSIDE RECORDS SUMMARY | ~2019-05-17 | XMS | Encounter Summary ---
Demographics + + + | Address | [address] | | | [place] [address] | + + + | Home Phone [...] Team Providers + +------+ + | Care Neuropsychology Director Name | Role | Phone | + +------+ + | Zayda Hinton | PCP | | + +------+ + Encounter Details +--------+ + + + + | Date | Type | Department | Care Team | Description | +--------+ + + + + | 10/09/ | Pharmacy | Specialty Pharmacy | | | | 2016 | Visit | Services [address] | | | | | | [address] | | | | | | [place], [place] | | | | | | [address] | | | | | | [phone] | | | +--------+ + + + [...] | Visit | Malignancy | [address] [facility] | | | | | | [address] | | | | | | [place], [place] | | | | | | [address] | | | | | | [phone] | | | | | | | | +--------+---------+ + + + documented as of this encounter Visit Diagnoses Not on filedocumented in this encounter"
--- OUTSIDE RECORDS SUMMARY | ~2019-05-17 | XMS | Encounter Summary ---
Demographics + + + | Address | [address] | | | [place] [address] | + + + | Home Phone [...] Team Providers + +------+ + | Care Access Clinician Name | Role | Phone | + +------+ + | Zayda Hinton | PCP | | + +------+ + Encounter Details +--------+ + + + + | Date | Type | Department | Care Team | Description | +--------+ + + + + | 08/17/ | Lab | LAB IMMUNOGENETIC | Yari Garcia MD | | | 2015 | Requisition | [facility] | [address] | | | | | [address] | [address] | | | | | [address] [place], | [place], [place] | | | | | [place] [address] | [address] | | | | | | [phone] | | | | | | | [...] [address] | | | | | | [place], [place] | | | | | | [address] | | | | | | [phone] | | | | | | | | +--------+---------+ + + + documented as of this encounter Procedures + +--------+ + + + | Procedure Name | Priori | Date/Time | Associated Diagnosis | Comments | | | ty | | | | + +--------+ + + + | LIT FLOW HLA AB PRA | Routin | 08/17/2015 | Acute | | | SCREEN I/II | e | 1:47 PM | myelomonocytic | | | | | PST | leukemia not having | | | | | | achieved remission | | | | | | (HCC) | | + +--------+ + + + | LIT B-CELL XM, BLOOD | Routin | 08/17/2015 | Acute | | | | e | 1:47 PM | myelomonocytic | | | | | PST | leukemia not having | | | | | | achieved remission | | | | | | (HCC) | | + +--------+ + + + | LIT T-CELL XM, BLOOD | Routin | 08/17/2015 | Acute | | | | e | 1:47 PM | myelomonocytic | | | | | PST | leukemia not having | | | | | | achieved remission | | | | | | (HCC) | | + +--------+ + + + documented in this encounter Results LIT B-CELL XM, BLOOD (08/17/2015 1:47 PM PST) + + | Specimen | + + | Blood - Blood | | (substance) | + + + + + + + | Performing | Address | City/State/Zipcode | Phone Number | | Organization | | | | + + + + + | [facility] - | [address] | [place] [address] | | | IMMUNOGENETICS/TRANS | [address] | | | | [facility] | | | | + + + + + LIT T-CELL XM, BLOOD (08/17/2015 1:47 PM PST) + + | Specimen | + + | Blood - Blood | | (substance) | + + + + + + + | Performing | Address | City/State/Zipcode | Phone Number | | Organization | | | | + + + + + | [facility] - | [address] | [place] [address] | | | IMMUNOGENETICS/TRANS | [address] | | | | [facility] | | | | + + + + + LIT FLOW HLA AB PRA SCREEN I/II (08/17/2015 1:47 PM PST) + + | Specimen | + + | Blood - Blood | | (substance) | + + + + + + + | Performing | Address | City/State/Zipcode | Phone Number | | Organization | | | | + + + + + | [facility] - | [address] | [place] [address] | | | IMMUNOGENETICS/TRANS | [address] | | | | [facility] | | | | + + + + + documented in this encounter Visit Diagnoses + + | Diagnosis | + + | 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
--- OUTSIDE RECORDS SUMMARY | ~2019-05-17 | XMS | Encounter Summary ---
Demographics + + + | Address | [address] | | | [place] [address] | + + + | Home Phone [...] Team Providers + +------+ + | Care Service Line Layer Name | Role | Phone | + +------+ + | Pending Pcp Addition | PCP | Unavailable | + +------+ + Encounter Details +--------+ + + + + | Date | Type | Department | Care Team | Description | +--------+ + + + + | 07/25/ | Results | Registration [address] | Yari Garcia MD | | | 2017 | Only | [address] | [address] | | | | | [address] Mailcode: [id number] | [address] | | | | | [place], [place] | [place], [place] | | | | | [address] | [address] | | | | | [phone] | [phone] | | | | | | | [...] Rd | | | | | | [place], [place] | | | | | | [address] | | | | | | [phone] | | | | | | | | +--------+---------+ + + + documented as of this encounter Procedures + +--------+ + + + | Procedure Name | Priori | Date/Time | Associated Diagnosis | Comments | | | ty | | | | + +--------+ + + + | MRI HIP LT WO CONT | Routin | 07/25/2016 | | Results for this | | | e | 10:08 AM | | procedure are in the | | | | PST | | results section. | + +--------+ + + + documented in this encounter Results MRI HIP LT WO CONT (07/25/2016 10:08 AM PST) + + + + + + | Component | Value | Ref Range | Performed | Pathologist | | | | | At | Signature | + + + + + + | MR HIP LT | EXAM: MRI HIP LEFT W/O | | | | | WO CONT | CONTRAST 07/25/16 | | | | | | 10:08:00 HISTORY: | | | | | | Concern for avascular | | | | | | necrosis on radiographic | | | | | | imaging. COMPARISON: | | | | | | Radiographs July 13, | | | | | | 2016 and March 30, | | | | | | 2015 TECHNIQUE: The | | | | | | following MR pulse | | | | | | sequences were performed | | | | | | through the pelvisand | | | | | | hip:1. Axial and | | | | | | coronal T1- and axial | | | | | | fat suppressed | | | | | | intermediate TE-wieghted | | | | | | FSEand coronal STIR | | | | | | through both hips.2. | | | | | | Axial and sagittal | | | | | | fat-suppressed | | | | | | intermediate TE-weighted | | | | | | FSE through thehip. | | | | | | FINDINGS: OSSEOUS: | | | | | | Within both femoral | | | | | | heads, both greater | | | | | | trochanters | | | | | | andintertrochanteric | | | | | | regions, and the left | | | | | | supra-acetabular region, | | | | | | there aremultiple | | | | | | geographic areas of | | | | | | fat-containing marrow | | | | | | circumscribed by | | | | | | serpiginouslow signal | | | | | | intensity, compatible | | | | | | with avascular | | | | | | necrosis/bone marrow | | | | | | infarcts.Marrow signal | | | | | | abnormality in the | | | | | | proximal femoral | | | | | | diaphyses may | | | | | | representadditional bone | | | | | | infarcts or treated | | | | | | disease.There is a large | | | | | | subchondralfracture of | | | | | | the left femoral head | | | | | | contributing to | | | | | | flattening of | | | | | | theweightbearing | | | | | | articular surface; edema | | | | | | in the left femoral | | | | | | head is reactive.There | | | | | | is no subchondral | | | | | | collapse of the right | | | | | | femoral head. ARTICULAR: | | | | | | The left hip articular | | | | | | cartilage appears | | | | | | thinned without | | | | | | focaldefect, although | | | | | | the examination is not | | | | | | protocoled for | | | | | | evaluation of the | | | | | | jointspace. There is a | | | | | | small left joint | | | | | | effusion. No displaced | | | | | | labral tear isseen. | | | | | | MUSCLES/TENDONS: The | | | | | | muscles are normal in | | | | | | bulk and signal | | | | | | intensity. There isno | | | | | | tendinopathy or tendon | | | | | | tear. MISCELLANEOUS: | | | | | | There is no bursitis. | | | | | | The visualized | | | | | | structures of the | | | | | | visceralpelvis are | | | | | | within normal limits. 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 | | | | | | Subchondral fracture and | | | | | | collapse | | | | | | ofweightbearing left | | | | | | femoral head with | | | | | | suspected early | | | | | | cartilage disease. | | | | | | Noright femoral head | | | | | | subchondral fracture | | | | | | observed. 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 | | | | | | Attending Radiologists: | | | | | | DANIELA MYERS, | | | | | | MDAuthor: DANIELA | | | | | | MD Ailin MYERS personally | | | | | | reviewed the images | | | | | | and, if necessary, | | | | | | edited the report. I | | | | | | agreewith the report as | | | | | | now presented. | | | | | | Final/Electronically | | | | | | signed / DANIELA | | | | | | LUCIA 07/25/2016 11:30 | | | | | | [...]
--- OUTSIDE RECORDS SUMMARY | ~2019-05-17 | XMS | Encounter Summary ---
Demographics + + + | Address | [address] | | | [place] [address] | + + + | Home Phone [...] Team Providers + +------+ + | Care Livestock Broker Name | Role | Phone | + +------+ + | Pending Pcp Addition | PCP | Unavailable | + +------+ + Encounter Details +--------+ + + + + | Date | Type | Department | Care Team | Description | +--------+ + + + + | 08/09/ | Results/Int | Pulmonary Function | | Encounter for | | 2015 | erpretation | Lab at [facility] [address] | | long-term (current) | | | | [address] | | use of medications | | | | Mailcode: [id number] | | (Primary Dx) | | | | [address] | | | | | | [place], [place] | | | | | | [address] | | | | | | [phone] | | | +--------+ + + + [...] documented as of this encounter Progress Notes Chase Lema MD - 08/15/2015 10:41 AM PST Refer to PFT report. d ocumented in this encounter Plan of Treatment +--------+---------+ [...] Rd | | | | | | [place], [place] | | | | | | [address] | | | | | | [phone] | | | | | | | | +--------+---------+ + + + documented as of this encounter Procedures + +--------+ + + + | Procedure Name | Priori | Date/Time | Associated Diagnosis | Comments | | | ty | | | | + +--------+ + + + | [place] DIFFUSING | Routin | 08/15/2015 | Encounter for | | | CAPACITY | e | 10:41 AM | long-term (current) | | | | | PST | use of medications | | + +--------+ + + + | [place] SPIROMETRY TEST | Routin | 08/15/2015 | Encounter for | | | | e | 10:41 AM | long-term (current) | | | | | PST | use of medications | | + +--------+ + + + | SPIROMETRY, PULM | Routin | 08/09/2015 | Encounter for | Results for this | | FUNCTION LAB | e | 12:54 PM | long-term current | procedure are in the | | | | PST | use of medication | results section. | + +--------+ + + + documented in this encounter Visit Diagnoses + + | Diagnosis | + + | Encounter for long-term (current) use of medications - Primary Encounter for | | long-term (current) use of other medications | + + documented in this encounter"
--- OUTSIDE RECORDS SUMMARY | ~2019-05-17 | XMS | Encounter Summary ---
Demographics + + + | Address | [address] | | | [place] [address] | + + + | Home Phone [...] Providers + +------+ + | Care Electrical Maintenance Man Name | Role | Phone | + +------+ + | Zayda Hinton | PCP | | + +------+ + Encounter Details +--------+ + + + + | Date | Type | Department | Care Team | Description | +--------+ + + + + | 09/14/ | Pharmacy | Specialty Pharmacy | | | | 2015 | Visit | Services [address] | | | | | | [address] | | | | | | [place], [place] | | | | | | [address] | | | | | | [phone] | | | +--------+ + + + [...] Rd | | | | | | [place], [place] | | | | | | [address] | | | | | | [phone] | | | | | | | | +--------+---------+ + + + documented as of this encounter Visit Diagnoses Not on filedocumented in this encounter"
--- OUTSIDE RECORDS SUMMARY | ~2019-05-17 | XMS | Encounter Summary ---
Demographics + + + | Address | [address] | | | [place] [address] | + + + | Home Phone [...] Team Providers + +------+ + | Care Human Resources Office Manager Name | Role | Phone | [...] | | | not having | [address] | Mailcode: | | | | | achieved | [place], [place] | [id number] | | | | | remission | [address] | [facility] | | | | | | Phone: | [facility] | | | | | Procedures | [phone] | [place], [place] | | | | | Post BMT | Fax: | [address] | | | | | Auth to | [phone] | Phone: | | | | | included | | [phone] | | | | | facility, | | Fax: | | | | | diagnostics, | | [phone] | | | | | office | | | | | | | visits and | | | | | | | surgery | | | +--------+---------+ + + + + Encounter Details +--------+ + + + + | Date | Type | Department | Care Team | Description | +--------+ + + + + | 06/15/ | Diagnostic | Center for | | Lab Draw | | 2016 | Visit | Hematologic | | | | | | Malignancies at | | | | | | [facility] | | | | | | [address] | | | | | | [address] Mailcode: | | | | | | [facility] [place] | | | | | | [place], | | | | | | [place] [address] | | | | | | [phone] | | | +--------+ + + + [...] this encounter Progress Notes Lincoln Hermosillo - 06/15/2016 10:15 AM PSTLeft AC accessed with a 23 [...] | Visit | Malignancy | [address] [facility] | | | | | | [address] | | | | | | [place], [place] | | | | | | [address] | | | | | | [phone] | | | | | | | | +--------+---------+ + + + documented as of this encounter Procedures + +--------+ + + + | Procedure Name | Priori | Date/Time | Associated Diagnosis | Comments | | | ty | | | | + +--------+ + + + | CBC+DIFF,POC | Routin | 06/15/2016 | S/P allogeneic | Results for this | | | e | 10:22 AM | bone marrow | procedure are in the | | | | PST | transplant (HCC) | results section. 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) | | + +--------+ + + + | BMP + MAG, POC CHM | Routin | 06/15/2016 | S/P allogeneic | Results for this | | | e | 10:21 AM | bone marrow | procedure are in the | | | | PST | transplant (HCC) | results section. 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) | | + +--------+ + + + | LIVER SET | Urgent | 06/15/2016 | S/P allogeneic | Results for this | | (AST,ALT,BILI | | 10:10 AM | bone marrow | procedure are in the | | TOTAL,BILI | | PST | transplant (HCC) | results section. | | DIRECT,ALK | | | Acute myelomonocytic | | | PHOS,ALB,PROT TOTAL) | | | leukemia in | | | | | | remission (HCC) | | + +--------+ + + + documented in this encounter Results CBC+DIFF,POC (06/15/2016 10:22 AM PST) + + + + + + | Component | Value | Ref Range | Performed | Pathologist | | | | | At | Signature | + + + + + + | WBC POC | 4.9 | 4.4 - 11.0 | [facility] - | | | | | 10*3/uL | [facility] | | | | | | [facility], POINT | | | | | | OF CARE | | | | | | TESTS | | + + + + + + | RBC POC | 4.34 (L) | 4.50 - 6.00 | [facility] [...] + + + | HCT POC | 42.1 | 41.0 - 53.0 % | [facility] - | | | | | | [place] | | | | | | [facility] | | | | | | OF CARE | | | | | | TESTS | | + + + + + + | MCV POC | 97.0 (H) | 80.0 - 96.0 fL | [...] + + | RDW SD, POC | 45.4 | 35.1 - 46.3 fL | [facility] - | | | | | | [facility] | | | | | | [facility] | | | | | | OF CARE | | | | | | TESTS | | + + + + + + | PLT POC | 180 | 150 - 400 | [facility] - [...] + + + + | NEUTROPHIL% | 47.0 (L) | 50.0 - 70.0 % | [facility] - | | | POC | | | [place] | | | | | | [facility] POINT | | | | | | OF CARE | | | | | | TESTS | | + + + + + + | LYMPH% POC | 33.1 | 18 - 42 % | [facility] - | | | | | | [facility] | | | | | | [facility] POINT | | | | | | OF CARE | | | | | | TESTS | | + + + + + + | MONO %, POC | 15.2 (H) | 3.5 - 9.0 % | [facility] - | | | | | | [facility] | | | | | | [facility] | | | | | | OF CARE | | | | | | TESTS | | + + + + + + | EOS %, POC | 4.3 (H) | 1.0 - 3.0 % | [...] + + + + | NEUTROPHIL# | 2.3 | 1.8 - 7.7 | [facility] - [...] [facility] | [address] | [place], [place] | | | [facility] OF CARE | [address] | [address] | | | TESTS | | | | + + + + + BMP + MAG, POC CHM (06/15/2016 10:21 AM PST) + +---------+ + + + | Component | Value | Ref Range | Performed | Pathologist | | | | | At | Signature | + +---------+ + + + | SODIUM, POC | 133 (L) | 134 - 143 | [facility] - | | | | | mmol/L | [facility] | | [...] (H) | 0 - 206 U/L | [facility] - | | | | | | [place] | | | | | | [facility] POINT | | | | | | OF CARE | | | | | | TESTS | | + +---------+ + + + | MAGNESIUM, | 2.1 | 1.8 - 2.5 mg/dL | [facility] - | | | POC | [...] [facility] | [address] | [place], [place] | | | [facility] POINT OF CARE | [facility] | [address] | | | TESTS | | | | + + + + + LIVER SET (AST,ALT,BILI TOTAL,BILI DIRECT,ALK PHOS,ALB,PROT TOTAL) (06/15/2016 10:10 AM PST ) + +---------+ + + [...] + + + | ALK PHOS | 106 | 53 - 128 U/L | [facility] [...] + + + | ALT (SGPT) | 64 (H) | <=60 U/L | [facility] | [...] [facility] | [address] | [place] [address] | | | SERVICES, CORE | [address] [...]
--- OUTSIDE RECORDS SUMMARY | ~2019-05-17 | XMS | Encounter Summary ---
Demographics + + + | Address | [address] | | | [place] [address] | + + + | Home Phone [...] Team Providers + +------+ + | Care Sonography Technician Name | Role | Phone | [...] | | | | | achieved | [place], [place] | [id number] | | | | | remission | [address] | [place] | | | | | | Phone: | Asha | | | | | Procedures | [phone] | [place], [place] | | | | | Post BMT | Fax: | [address] | | | | | Auth to | [phone] | Phone: | | | | | included | | [phone] | | | | | facility, | | Fax: | | | | | diagnostics, | | [phone] | | | | | office | | | | | | | visits and | | | | | | | surgery | | | +--------+---------+ + + + + Encounter Details +--------+---------+ + + + | Date | Type | Department | Care Team | Description | +--------+---------+ + + + | 12/07/ | Office | Center for | Yari Garcia MD | 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 | Visit | 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) (HCC) | | | | Malignancies at | [address] | (Primary Dx) | | | | [facility] | [facility] [place] | | | | | [address] | [address] | | | | | [address] Mailcode: | [phone] | | | | | [facility] [place] | | | | | | [place], | | | | | | [place] [address] | | | | | | [phone] | | | +--------+---------+ + + + [...] + + + | Blood Pressure | 111/65 | 12/07/2016 10:29 AM | | | | | PDT | | + + + + + | Pulse | 68 | 12/07/2016 10:29 AM | | | | | PDT | | + + + + + | Temperature | 36.9 C (98.4 F) | 12/07/2016 10:29 AM | | | | | PDT | | + + + + + | Respiratory Rate | 18 | 12/07/2016 10:29 AM | | | | | PDT | | + + + + + | Oxygen Saturation | 98% | 12/07/2016 10:29 AM | | | | | PDT | | + + + + + | Inhaled Oxygen | - | - | | | Concentration | | | | + + + + + | Weight | 76.6 kg (168 lb 14 | 12/07/2016 10:29 AM | | | | oz) | PDT | | + + + + + | Height | - | - | | + + + + + | Body Mass Index | 21.11 | 10/18/2016 10:05 AM | | | | | PDT | | + + + + + documented in this encounter Patient Instructions Patient Instructions Yari Garcia MD - 12/07/2016 9:55 AM PDTFormatting of this note mi ght be different from the original. Khurram- You are doing really well. Decrease your prednisone to 20 mg daily alternating with 10 mg daily. Keep an eye out for rash, changes in nausea or your bowels. Have fun at the retreat. We will get the information for you about doing a new sperm sample. Next visit 12-18-16 and then again on 12-28 (at that visit we will do vaccines) Check out at the front load trash truck driver today and make your next appointments. You can also call the flaco whitehead at [phone]. If you have any questions, or if you need prescription refills, or are experiencing any sym ptoms or side effects please call our english horn player at [phone] Lab on 12/07/2016 Component Date Value GLUCOSE, PLASMA (LAB) 12/07/2016 100* BUN, PLASMA (LAB) 12/07/2016 6 CREATININE PLASMA (LAB) 12/07/2016 0.76 EGFR - NAURUAN 12/07/2016 >60 EGFR NON -NAURUAN 12/07/2016 >60 SODIUM, PLASMA (LAB) 12/07/2016 143 POTASSIUM, PLASMA (LAB) 12/07/2016 3.8 CHLORIDE, PLASMA (LAB) 12/07/2016 106 TOTAL CO2, PLASMA (LAB) 12/07/2016 31 CALCIUM, PLASMA (LAB) 12/07/2016 8.8 CALCIUM(ALB CORRECTED) 12/07/2016 9.0 BILIRUBIN TOTAL 12/07/2016 0.3 TOTAL PROTEIN, PLASMA (L* 12/07/2016 6.4 ALBUMIN, PLASMA (LAB) 12/07/2016 3.7 ALK PHOS 12/07/2016 67 AST(SGOT) 12/07/2016 17 ALT (SGPT) 12/07/2016 35 ANION GAP 12/07/2016 6 ANION GAP(ALB CORRECTED) 12/07/2016 6 POTASSIUM CMNT 12/07/2016 No Hemo BILI T CMNT 12/07/2016 No Hemo AST CMNT 12/07/2016 No Hemo MAGNESIUM,PLASMA 12/07/2016 2.2 PHOSPHORUS, PLASMA (LAB) 12/07/2016 3.1 URIC ACID, PLASMA (LAB) 12/07/2016 3.7 BILIRUBIN DIRECT 12/07/2016 <0.1 BILI D CMNT 12/07/2016 No Hemo LD TOTAL, PLASMA 12/07/2016 125 LD CMNT 12/07/2016 No Hemo WHITE CELL COUNT 12/07/2016 7.52 RED CELL COUNT 12/07/2016 4.01* HEMOGLOBIN 12/07/2016 12.7* HEMATOCRIT 12/07/2016 38.8* MCV 12/07/2016 96.8* MCHC 12/07/2016 32.7 RDW SD 12/07/2016 51.1* PLATELET COUNT 12/07/2016 282 MPV 12/07/2016 8.1* NRBC% 12/07/2016 0.0 NRBC# 12/07/2016 0.00 NEUTROPHIL % 12/07/2016 56.4 LYMPHOCYTE % 12/07/2016 31.5 MONOCYTE % 12/07/2016 7.8 EOS % 12/07/2016 3.5* BASO % 12/07/2016 0.3 IMMATURE GRANULOCYTE% 12/07/2016 0.5 NEUTROPHIL # 12/07/2016 4.24 LYMPHOCYTE # 12/07/2016 2.37 MONOCYTE # 12/07/2016 0.59 EOS # 12/07/2016 0.26 BASO # 12/07/2016 0.02 IMMATURE GRANULOCYTE# 12/07/2016 0.04* documented in this encounter Progress Notes Yari Garcia MD - 12/07/2016 9:55 AM PDT 12/07/16 [facility] Primary [facility] MD: Yari Garcia MD Primary Oncologist: Yari Garcia MD Diagnosis: AMML, primary refractory Transplant Date: 08/27/15 Donor: MMURD (DPB1 permissive antigen mismatch, male, [id number]) Identifying Data: Khurram Kelly is a 26 [...] his L ankle. He was evaluated at [facility] ED on 06/[address] angiogram negative [...] myelomonocytic leukemia. He was referred to [facility] for further evaluation and man agement of his newly dx'd AML. Pt was admitted to [facility] on 05/26/15. Peripheral blood was [...] CD34, variable CD56, variable CD117, and dim ML385-iujac mickey; promonocyte immunophenotype (70% by flow): CD11b, [...] L total hip arthroplasty. He is currently 470 days post transplants/p transplant, s/p 6 cyclesof azacitidine and returns to clinic today for scheduled follow-up. Interim History: Khurram returns to clinic today feeling well. He has been working out wi th more regularity and finds that his hip works well. Muscle weakness persists, but he is a ble to overcome it with exercise. Eating well, gaining weight. No nausea, bowels are gabriela l. Using some tinctures of marijuana which have helped, not smoking at all. Has questions about fertility - they would like to consider having another child in the nex t year or so. Has sperm in storage. No skin rash, no abdominal tenderness. Had brief (1 day) diarrheal illness last week - w hole family was affected, rapid recovery with no residual sequelae. Review of Systems Constitutional: Negative for chills, fever and malaise/fatigue. HENT: Negative for headaches, congestion and sore throat. Eyes: Positive for redness (decreasing). Negative for blurred vision and discharge. Respiratory: Negative for cough and shortness of breath. Cardiovascular: Negative for chest pain and leg swelling. Gastrointestinal: Negative for abdominal pain, constipation, diarrhea, nausea and vomiting. Genitourinary: Negative for dysuria. Musculoskeletal: Negative for joint pain and myalgias. Skin: Negative for rash. Neurological: Positive for tremors. Negative for dizziness, tingling and weakness. Psychiatric/Behavioral: Negative for depression. The [...] other day tacrolimus 0.5 mg oral capsule As of 11/09/16: Take 1 mg by mouth every morning and 0.5 mg by mouth every evening. Do not take on days of lab draws until AFTER your blood has been collected. Combine capsules for correct dose when necessary. Further dosing to be titrated by your clinic provider. Indications: GVHD tacrolimus 1 mg oral capsule As of 11/09/16: Take 1 mg by mouth every morning and 0.5 m g by mouth every evening. Do not take on days of lab draws until AFTER your blood has been c ollected. Combine capsules for correct dose when necessary. Further dosing to be titrated by your clinic provider. Indications: GVHD triamcinolone acetonide 0.1 % topical [...] this visit. No Known Allergies Filed Vitals: 12/07/2016 10:29 AM Weight: 76.6 kg (168 lb 14 oz) BP: 111/65 Pulse: 68 Temp: 36.9 C (98.4 F) TempSrc: Oral Resp: 18 SpO2: 98% PainSc: 0 - Zero BMI: 21.11 kg/(m^2) Physical Exam Constitutional: No distress. Thin [...] reviewed. Lab Results Component Value Date WBC 7.52 12/07/2016 HB 12.7 12/07/2016 HCT 38.8 12/07/2016 PLT 282 12/07/2016 MCV 96.8 12/07/2016 RDW 51.1 12/07/2016 Lab Results Component Value Date BICARB 31 12/07/2016 TBILI 0.3 12/07/2016 CA 8.8 12/07/2016 CL 106 12/07/2016 CR 0.76 12/07/2016 GLU 100 (H) 12/07/2016 AP 91 10/09/2016 TP 6.4 12/07/2016 BUN 6 12/07/2016 ALB 3.7 12/07/2016 AST 17 12/07/2016 NA 143 12/07/2016 K 3.8 12/07/2016 ALT 35 12/07/2016 Assessment/Plan: 1. 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 His most recent marrow studies completed showed a normocellular marrow (30%) with trilineage hematopoiesis, marrow eosinophilia (~15%) and <2% myeloid blasts. Karyotype 46,XY[20]. VNTR showed no detectable host cell s. 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 CBC remains WNL with no evidence of disease by peripheral smear. --> continue CBC q2 weeks and prn --> no additional marrow studies indicated providing peripheral counts remain stable 2. 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 He initially responded but flared during taper. He also developed low-level nausea and abd discomfort concerning for GvHD, emp irically treated with oral non-absorbables with resolution. - He had tapered prednisone to 10 mg po daily when he developed a rash for which he was see n in the ED in [place] in late 01/21. Prednisone was increased back [...] of the rectum. - asymptomatic at this time. Skin symptoms resolved -->adjust tacrolimus to maintain a trough level of 4-8 -->continuemycophenolate ER 720 mg po BID --> decrease prednisone 20 mg po every other day alt with 10 mg po every other day --> continue to f/u with ophthalmology per their recommendations 3. Infectious Disease: Afebrile without localizing s/s infection. He continues prophylact ic acyclovir and bactrim. Completed a 3-week course of fluconazole 400 mg po daily on 11/12/16 for findings of esophageal candidiasis His most recent immune reconstitution panel [facility] 08/31/16 showed normal total T cells with relative decrease in CD4+ margarita cells, normal total NK cells, normal total B cells with relative decrease in non-switched memory B cells a nd minimal immune activation. CD4 count 420. Over due for post-transplant vaccines -->continue prophylactic antimicrobials --> continue post-transplant vaccines --> pt provided with a vaccination record including past and present vaccines with recommen dations for future vaccines 4. Fluid, Electrolyte and Nutrition: Weating well with adequate po fluid intake. No c/o N /V/D except once after physical activity. Weight increased. His electrolytes are reviewed a nd are within acceptable limits. --> continue to eat well with several meals/snacks throughout the day --> maintain adequate hydration 5. Musculoskeletal: Hx [...] doing very well post-surgery. --> Ortho recommended f/Skylar Jeffers MD in 1 year, sooner prn 6. Cardiovascular: Mild intermittent tachycardia persists, no further c/o palpitations and lightheadedness resolved after restarting xanax. EKG 10/26/16 showed sinus tach with AP 106, o/w WNL. His electrolytes are reviewed and are within acceptable limits. --> if tachycardia recurs, TTE with consideration for initiation of beta blockade 7. Psychosocial: Pt reports ongoing anxiety related to his dx and treatment. Has stated he's had a hard time moving forward with his life. Had been takingxanax with relief but stopped in 09/22 without tapering. He attendedan AYA support group twice. Initially just me t one other AYA survivor. The last time was a full support group but felt the meeting got of f track and was monopolized by one patient with minimal guidance from the inspector repairer sandstone (not t he usual inspector repairer sandstone). He is willing to give it another try but thinks individualtherapy may be best for him. He has since restarted xanax 1 mg po TID with marked improvement in h is symptoms. He is very excited to have been accepted to attend an AYA retreat from 12/15-12/17. He is amenable to counseling but has not yet called to schedule an appt. Concerned abou t establishing care here then moving back to [place]. States he is planning to come to [place] for f/u with us. -->continue to attend AYA support group as able --> continue xanax 1 mg po TID; advised pt he should not exceed this dose --> again encouraged pt to schedule counseling session at [facility]; he and his have contact information. If he is planning to come back here monthly for f/u, he can continue t o f/u with his provider there 7. 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
--- OUTSIDE RECORDS SUMMARY | ~2019-05-17 | XMS | Encounter Summary ---
Demographics + + + | Address | [address] | | | [place] [address] | + + + | Home Phone [...] Team Providers + +------+ + | Care State Editor Name | Role | Phone | + +------+ + | Zayda Hinton | PCP | | + +------+ + Encounter Details +--------+ + + + + | Date | Type | Department | Care Team | Description | +--------+ + + + + | 07/25/ | Documentati | Center for | Work, Social | | | 2018 | on | Hematologic | | | | | | Malignancies at | | | | | | [facility] | | | | | | [address] | | | | | | [place] Mailcode: | | | | | | [facility] | | | | | | [place], | | | | | | [place] [address] | | | | | | [phone] | | | +--------+ + + + [...] [address] | | | | | | [place], [place] | | | | | | [address] | | | | | | [phone] | | | | | | | | +--------+---------+ + + + documented as of this encounter Visit Diagnoses Not on filedocumented in this encounter"
--- OUTSIDE RECORDS SUMMARY | ~2019-05-17 | XMS | Encounter Summary ---
Demographics + + + | Address | [address] | | | [place] [address] | + + + | Home Phone [...] Team Providers + +------+ + | Care Emergency Vehicle Operations Instructor Name | Role | Phone | [...] | 2018 | | Hematologic | [address] | fidencio garcia | | | | Malignancies at | [address] | since of well being, | | | | [facility] | [place], [place] | feeling uneasy, occ | | | | [address] | [address] | [place], | | | | [address] Mailcode: | [phone] | feeling anxiety.) | | | | [facility] | | | | | | [facility] [place], | | | | | | [place] [address] | | | | | | [phone] | | | +--------+ + + + [...] 2018 | Visit | Malignancy | [address] [facility] | | | | | | [address] | | | | | | [place], [place] | | | | | | [address] | | | | | | [phone] | | | | | | | | +--------+---------+ + + + documented as of this encounter Visit Diagnoses Not on filedocumented in this encounter"
--- OUTSIDE RECORDS SUMMARY | ~2019-05-17 | XMS | Encounter Summary ---
Demographics + + + | Address | [address] | | | [place] [address] | + + + | Home Phone [...] Team Providers + +------+ + | Care Contact Person Name | Role | Phone | + [...] | | | | | | | [address] | | | | | | | Phone: | | | | | | | [phone] | | | | | | | Fax: | | | | | | | [phone] | +--------+--------+ + + + + Encounter Details +--------+ + + + + | Date | Type | Department | Care Team | Description | +--------+ + + + + | 01/02/ | Clinical | Center for | | Lab Draw (Trifusion) | | 2015 | Support | Hematologic | | | | | Staff | Malignancies at [facility] | | | | | | [address] | | | | | | [place]ally [place] Mailcode: | | | | | | [id number] | | | | | | [place], | | | | | | [place] [address] | | | | | | [phone] | | | +--------+ + + + [...] + + + | Blood Pressure | 125/87 | 01/03/2016 9:49 AM | | | | | PDT | | + + + + + | Pulse | 72 | 01/03/2016 9:49 AM | | | | | PDT | | + + + + + | Temperature | 36.9 C (98.5 F) | 01/03/2016 9:49 AM | | | | | PDT | | + + + + + | Respiratory Rate | 18 | 01/03/2016 9:49 AM | | | | | PDT | | + + + + + | Oxygen Saturation | 99% | 01/03/2016 9:49 AM | | | | | PDT | | + + + + + | Inhaled Oxygen | - | - | | | Concentration | | | | + + + + + | Weight | 87.3 kg (192 lb 7.4 | 01/03/2016 9:49 AM | | | | oz) | PDT | | + + + + + | Height | - | - | | + + + + + | Body Mass Index | 24.88 | 08/18/2015 4:35 PM | | | | | PST | | + + + + + documented in this encounter Progress Notes Diana Hodgson RN - 01/03/2016 9:44 AM PDTPOST TRANSPLANT NURSING NOTE Name: Khurram Kelly Date: 01/03/2016 Primary [facility]M MD: Yari Garcia MD Primary Oncologist: Yari Garcia MD Diagnosis: AMML, primary refractory Transplant Date: 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 Narrative: Patient ambulated to the infusion room. Patient is here today for lab draw with supportive care Nursing Assessment: Pain: None, knee pain has resolved Fever or chills: none Fatigue or sleep disturbance: none Dizziness: none Neuropathy: none Mucositis: none Dyspnea, cough: Slight cough and nasal congestion Signs of bleeding: none Nausea, vomiting or loss of appetite: none Fluid intake: 2L Diarrhea or constipation: none Edema: none Rash: none Vascular Access: Trifusion accessed per protocol. Good blood return noted. Appropriate wa adam discarded. Labs drawn and sent. Trifusion pulse flushed with 20 mL NS. Treatment Provided: Reviewed labs, no transfusions/infusions indicated at this time. All three lumens of trifu cricket flushed with 10 ml NS and 5 ml 10 unit heparin per protocol. Patient was reminded to call clinic with temp > 100.4, chills, s/s of bleeding or uncontrol led N/V/D/C. Patient verbalizes understanding. Patient was instructed to check out at the ont desk prior to leaving the clinic. Patient d/c d ambulatory with . Next Appointment in [facility] is on 01/06/16 at 10:25 am with Yari Garcia MD. Diana Hodgson RN documented in thi s encounter Plan of [...] Rd | | | | | | [place], [place] | | | | | | [address] | | | | | | [phone] | | | | | | | | +--------+---------+ + + + documented as of this encounter Procedures + +--------+ + + + | Procedure Name | Priori | Date/Time | Associated Diagnosis | Comments | | | ty | | | | + +--------+ + + + | CBC+DIFF,POC | Routin | 01/03/2016 | S/P allogeneic | Results for this | | | e | 10:08 AM | bone marrow | procedure are [...] + MAG, POC CHM | Routin | 01/03/2016 | S/P allogeneic | Results for this | | | e | 10:07 AM | bone marrow | procedure are [...] + | CMV PCR | Routin | 01/03/2016 | S/P allogeneic | Results for this | | QUANTITATION, PLASMA | e | 9:35 AM | bone marrow | [...] + | LIVER SET | Urgent | 01/03/2016 | S/P allogeneic | Results for this | | (AST,ALT,BILI | | 9:35 AM | bone marrow [...] + | TREATMENT PARAMETERS | Routin | 01/03/2016 | 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 | 9:34 AM | leukemia (AML), 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 | | | | | | induction failure | | + +--------+ + + + | TREATMENT PARAMETERS | Routin | 01/03/2016 | 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 | 9:34 AM | leukemia (AML), 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 | | | | | | induction failure | | + +--------+ + + + | TREATMENT PARAMETERS | Routin | 01/03/2016 | 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 | 9:34 AM | leukemia (AML), 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 | | | | | | induction failure | | + +--------+ + + + | TREATMENT PARAMETERS | Routin | 01/03/2016 | 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 | 9:34 AM | leukemia (AML), 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 | | | | | | induction failure | | + +--------+ + + + | TREATMENT PARAMETERS | Routin | 01/03/2016 | 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 | 9:34 AM | leukemia (AML), 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 | | | | | | induction failure | | + +--------+ + + + | NURSING | Routin | 01/03/2016 | S/P allogeneic | | | COMMUNICATION #5 - | e | 9:34 AM | bone marrow | | | [facility] | | PDT | transplant (HCC) | 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 | | + +--------+ + + + | NURSING | Routin | 01/03/2016 | S/P allogeneic | | | COMMUNICATION #4 - | e | 9:34 AM | bone marrow | | | [facility] | | PDT | transplant (HCC) | 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 | | + +--------+ + + + | NURSING | Routin | 01/03/2016 | S/P allogeneic | | | COMMUNICATION #3 - | e | 9:34 AM | bone marrow | | | [facility] | | PDT | transplant (HCC) | 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 | | + +--------+ + + + | NURSING | Routin | 01/03/2016 | S/P allogeneic | | | COMMUNICATION #3 - | e | 9:34 AM | bone marrow | | | [facility] | | PDT | transplant (HCC) | 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 | | + +--------+ + + + | NURSING | Routin | 01/03/2016 | Acute myeloid | | | COMMUNICATION #2 - | e | 9:34 AM | leukemia (AML), M4 | | | [facility] | | PDT | ([facility])- primary | | | | | | induction failure | | + +--------+ + + + | NURSING | Routin | 01/03/2016 | Acute myeloid | | | COMMUNICATION #1 - | e | 9:34 AM | leukemia (AML), M4 | | | [facility] | | PDT | (HCC)- primary | | | | | | induction failure | | + +--------+ + + + | TREATMENT PARAMETERS | Routin | 01/03/2016 | S/P allogeneic | | | #1 - [facility] | e | 9:34 AM | bone marrow | | | | | PDT | transplant (HCC) | 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 | | + +--------+ + + + | TREATMENT PARAMETERS | Routin | 01/03/2016 | S/P allogeneic | | | #1 - [facility] | e | 9:34 AM | bone marrow | | | | | PDT | transplant (HCC) | 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 | | + +--------+ + + + | TREATMENT PARAMETERS | Routin | 01/03/2016 | S/P allogeneic | | | #1 - [facility] | e | 9:34 AM | bone marrow | | | | | PDT | transplant (HCC) | 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 | | + +--------+ + + + documented in this encounter Results CBC+DIFF,POC (01/03/2016 10:08 AM PDT) + + + + + + | Component | Value | Ref Range | Performed | Pathologist | | | | | At | Signature | + + + + + + | WBC POC | 7.6 | 4.4 - 11.0 | [facility] - | | | | | 10*3/uL | [facility] | | | | | | [place] | | | | | | OF CARE | | | | | | TESTS | | + + + + + + | RBC POC | 3.60 (L) | 4.50 - 6.00 | [facility] - | | | | | 10*6/uL | [facility] | | | | | | [place] | | | | | | OF CARE | | | | | | TESTS | | + + + + + + | HGB POC | 12.8 (L) | 13.5 - 17.5 | [facility] - | | | | | g/dL | [facility] | | | | | | [facility] | | | | | | OF CARE | | | | | | TESTS | | + + + + + + | HCT POC | 37.3 (L) | 41.0 - 53.0 % | [...] + + + | MCHC POC | 34.3 | 33.0 - 35.5 | [facility] - | | | | | g/dL | [facility] | | | | | | [facility] | | | | | | OF CARE | | | | | | TESTS | | + + + + + + | RDW SD, POC | 54.0 (H) | 35.1 - 46.3 fL | [facility] - | | | | | | [facility] | | | | | | [facility] | | | | | | OF CARE | | | | | | TESTS | | + + + + + + | PLT POC | 92 (L) | 150 - 400 | [facility] [...] + + + | LYMPH% POC | 19.0 | 18 - 42 % | [facility] - | | | | | | [facility] | | | | | | [facility] | | | | | | OF CARE | | | | | | TESTS | | + + + + + + | MONO %, POC | 8.2 | 3.5 - 9.0 % | [facility] [...] - [facility] | [address] | [place], [place] | | | [facility] | [address] | [address] | | | TESTS | | | | + + + + + BMP + MAG, POC CHM (01/03/2016 10:07 AM PDT) + +---------+ + + [...] +---------+ + + + | GLUCOSE, | 103 (H) | 60 - 99 mg/dL | [...] + + + | LDH, POC | 345 (H) | 0 - 206 U/L | [...] [facility] | [address] | [place], [place] | | | [facility] | [address] | [address] | | | TESTS | | | | + + + + + LIVER SET (AST,ALT,BILI TOTAL,BILI DIRECT,ALK PHOS,ALB,PROT TOTAL) (01/03/2016 9:35 AM PDT ) + +---------+ + + [...] +---------+ + + + | AST(SGOT) | 84 (H) | <=41 U/L | [facility] | | | | | | LABORATORY | | | | | | SERVICES, | | | | | | CORE | | + +---------+ + + + | ALT (SGPT) | 291 (H) | <=60 U/L | [facility] | [...] + + + + | [facility] | [address] | [place] [address] | | | SERVICES, CORE | [address] | | | + + + + + CMV PCR QUANTITATION, PLASMA (01/03/2016 9:35 AM PDT) + + + + + [...] | | characteristics determined by the [facility] | | | Molecular [...] | | | Act of 1988. The [facility] | | | [facility] is a fully licensed and/or accredited clinical | | | laboratory under CLIA, NUVIA, and the [facility]. | | + + + + + + + + | Performing | Address | City/State/Zipcode | Phone Number | | Organization | | | | + + + + + | [facility] | [phone] | [place] [address] | | | DIAGNOSTIC | [address] [...] 10 unit/mL IV flush | Given | 01/03/20 | 50 Units | | | | syringe 50 Units 50 Units, | | 16 10:32 | | | | | Intracatheter, NEEDED, | | AM PDT | | | | | Starting Sun01/03/16 at 0947, | | | | | | | Until Sun01/03/16 at 1635, line | | | | | | | patency | | | | | | + +--------+ + +------+------+ +-------+ + +---+---+ | Given | 01/03/20 | 50 Units | | | | | 16 10:31 | | | | | | AM PDT | | | | +-------+ + +---+---+ | Given | 01/03/20 | 50 Units | | | | | 16 10:30 | | | | | | AM PDT | | | | +-------+ + +---+---+ +---+---+ | | | +---+---+ documented in this encounter"
--- OUTSIDE RECORDS SUMMARY | ~2019-05-17 | XMS | Encounter Summary ---
Demographics + + + | Address | [address] | | | [place] [address] | + + + | Home Phone [...] Team Providers + +------+ + | Care Transplant Nurse Name | Role | Phone | [...] | | | | | achieved | [facility], [place] | [id number] | | | | | remission | [address] | [facility] | | | | | | Phone: | [facility] | | | | | Procedures | [phone] | [place], [place] | | | | | Post BMT | Fax: | [address] | | | | | Auth to | [phone] | Phone: | | | | | included | | [phone] | | | | | facility, | | Fax: | | | | | diagnostics, | | [phone] | | | | | office | | | | | | | visits and | | | | | | | surgery | | | +--------+---------+ + + + + Encounter Details +--------+---------+ + + + | Date | Type | Department | Care Team | Description | +--------+---------+ + + + | 09/26/ | Office | Center for | Saunders, Em L, | Acute myeloid | | 2016 | Visit | Hematologic | PA-C [address] [facility] | leukemia (AML), M4 | | | | Malignancies at | [address] | ([facility])- primary | | | | [facility] | [place], [place] | induction failure | | | | [address] [facility] | [address] | (Primary Dx); S/P | | | | [address] Mailcode: | [phone] | allogeneic bone | | | | [facility] | | marrow transplant | | | | [facility] [place], | | ([facility]) | | | | [place] [address] | | | | | | [phone] | | | +--------+---------+ + + + [...] + + + | Blood Pressure | 105/63 | 09/27/2015 12:40 PM | | | | | PDT | | + + + + + | Pulse | 75 | 09/27/2015 12:40 PM | | | | | PDT | | + + + + + | Temperature | 36.7 C (98.1 F) | 09/27/2015 12:40 PM | | | | | PDT | | + + + + + | Respiratory Rate | 16 | 09/27/2015 12:40 PM | | | | | PDT | | + + + + + | Oxygen Saturation | 100% | 09/27/2015 12:40 PM | | | | | PDT [...] Instructions Patient Instructions Em Saunders PA-C - 09/27/2015 8:23 AM PDT-Take your temperature regularly (3-4 x daily) and to call immediately for a temperature of 100.4 or greater. -We'll call you to adjust your Tacrolimus if necessary. -A refill for the oxycodone has been sent to [facility] pharmacy in [facility]. -Okay to take docusate 100 mg tablet daily. Hold for loose stools. Post Bone Marrow Biopsy Instructions 1. Keep your dressing dry for the next 24 hours; no shower or bath until tomorrow. 2. If you notice any signs of infection at the biopsy site (redness, tenderness, drainage) , please call the Triage nurse at ([phone]) or BMT person on-call ([phone]) after hours. 3. If you received medications such as morphine, you may not drive for at least 8 hours. documented in this encounter Progress Notes Em Saunders PA-C - 09/27/2015 6:46 PM PDTFormatting of this note might be different f rom the original. 09/27/2015 [facility] Physician: Yari Garcia MD Local Oncologist: Yari Garcia MD PCP: Pending Pcp ADDITION Hematologic Malignancy: Primary refractory AML Conditioning regimen: tBuCy Date of transplant: 08/27/2015 (two day 0s) Donor: MM U[facility] (DPB1 permissive antigen mismatch, male, 2027-0204-2) Hematologic History: Khurram Kelly is a 25 y.o. CM with a PMH of pericarditis who was in his [facility] u ntil 03/13/15 (the [...] L ankle. He was evaluated at [place] ED on 06/[address] angiogram negative [...] recurrent fevers, pericarditis and CBC abnl, jazlyn barerra was referred to Oncology for additional evaluation. Marrow studies completed on 05/19/15 s howed a hypercellular marrow (80-90%) with 86% of blast equivalents, comprised of myeloblast s, monoblasts and promonocytes. Concurrent flow cytometry detected 23% myeloid blasts and 60 % immature monocytic cells supporting this diagnosis. 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 He was referred to [facility] for further evaluation and man agement of his newly dx'd AML. Pt was admitted to [facility] on 05/26/15. Peripheral blood was sent for [...] CD34, variable CD56, variable CD117, and dim UE711-[id number] mickey; promonocyte immunophenotype (70% by flow): CD11b, [...] of primary refractory AML, currently d ay +31, s/p tBuCy conditioned MM URD SCT. Interval History: presents to clinic today for his routine scheduled visit. He is accompanied by his who is his caregiver in clinic today. He is doing well today. His rash continues to improve and is less itchy. He no longer has the rash on his arms or back. His nausea is resolved while he is taking the Zofran BID, which he continues. No vomiting. He has a good a ppetite and taste alteration is nearly resolved. He is able to take in 3 meals with snacks a nd is drinking well over 2 L of PO fluids daily. He remains active and has been walking. His energy is good. He has felt constipated a couple days ago, but finally with successful regu lar BM yesterday. He is wondering if he can take docusate or if he should take lactulose for constipation. He continues to take Oxycodone PRN for general body aches and is still taking oxy 1-2 times per day. He needs a refill today. No fevers. Review of Systems: General: Denies fevers, chills, [...] Cardiovascular: No chest pain,lightheadedness,shortness of breath. Gastrointestinal: +nausea resolved with Zofran BID, +constipation, better today Denies juan gestion, vomiting, diarrhea, abdominal pain, bloody stools or dark tarry stools. Skin: +skin rash, improving Psychological: No abnormal anxiety, depression. Remainder of ROS is otherwise negative. Current Medication List Name Sig ACYCLOVIR 800 MG TABLET Take 1 tablet by mouth two times daily. ALPRAZOLAM 0.5 MG TABLET Take 2 tablets by mouth three times daily as needed for anxiety. AMLODIPINE 5 MG TABLET Take one-half tablet by mouth once daily. DOCUSATE SODIUM 100 MG CAPSULE Take 1 [...] d aily. PREDNISONE 10 MG TABLET Take 35 mg once daily (35 mg = 3.5 tablets) PROCHLORPERAZINE MALEATE 5 MG TABLET Take 1 tablet by mouth every six hours as needed for n ausea/vomiting. Max dose: 40 mg/day SENNOSIDES-DOCUSATE SODIUM 8.6 MG-50 MG TABLET Take 1 tablet by mouth twice daily as needed (constipation). TACROLIMUS 0.5 MG CAPSULE Take 1.5 mg (one 1 mg capsule plus one 0.5 mg capsule) in the mor jayna AND 1.5 mg in the evening TACROLIMUS 1 MG CAPSULE Take 1.5 mg (one 1 mg capsule plus one 0.5 mg capsule) in the morni ng AND 1.5 mg in the evening TRIAMCINOLONE ACETONIDE 0.1 % TOPICAL CREAM Apply to affected area three times daily. Apply thin film to affected areas. Vitals: BP 105/63 | Pulse 75 | Temp (Src) 36.7 C (98.1 F) (Oral) | RR 16 | SpO2 100% Pre-transplant weight 165 pounds Physical Exam: General: This is a male in no acute distress, sitting up in chair. HEENT: Sclerae anicteric. Mucosa pink and moist without erythema or exudate. Skin: Fading erythematous maculopapular rash to lower chest, abd, and thighs bilat (front and back); ~25% BSA Chest: Lungs clear to auscultation bilat. [...] Labs 09/10/15 2300 09/11/15 2313 09/12/15 2326 09/21/15 1005 09/21/15 1100 09/24/15 0742 09/24/15 0815 09/27/15 0918 09/27/15 1004 NA 144 143 142 < > 137 -- 139 -- -- 138 K 3.7 3.9 3.9 < > 4.0 -- 4.4 -- -- 3.8 CL 113* 109* 109* < > 94* -- 98 -- -- 101 BICARB 21 25 25 < > 28 -- 28 -- -- 29 BUN 22* 19 18 < > 19 -- 25* -- -- 16 CR 0.91 0.94 0.96 < > 0.9 -- 0.9 -- -- 0.7 GLU 90 95 121* < > 108* -- 113* -- -- 104* CA 8.1* 8.0* 8.3* < > 9.5 -- 9.4 -- -- 9.3 AST 18 22 19 < > -- 11 -- 17 15 -- ALT 28 31 35 < > -- 40 -- 56 63* -- AP 63 83 96 < > -- 87 -- 90 73 -- TBILI 0.5 0.5 0.4 < > -- 0.5 -- 0.4 0.4 -- TP 5.8* 6.1* 6.1* < > -- 7.2 -- 6.9 6.3* -- ALB 2.7* 2.9* 3.0* < > -- 3.8 -- 3.7 3.4* -- ANIONGAP 10 9 8 -- -- [...] 5.96 x 10^6 per kg -BMT Day: +31 Pertinent Diagnostics: -Around day + 30 repeat marrow studies completed, per guidelines; BM Bx done 09/27/15 result s PENDING CBC reviewed and reveals anemia and thrombocytopenia. [...] eruption of lymphocyte recovery and early mild elpno-mhxxlt-dlbw disease. On 09/13, rash in volved ~15% BSA. Patient with progression of rash to chest, abd, back, upper arms bilat, thi ghs bilat (front and back); ~56% BSA at wrost on 09/14 and again on 09/16. Rash continues to re solve, now located on lower chest, abdomen, and thighs bilat (front and back), rash now ~25% BSA. -Triamcinolone cream 0.1% TID to rash -Started Prednisone 1 mg/kg/d (35 mg BID), started on 09/15/15. -09/20 reduced steroids by 25% per Dr. Garcia, taper down prednisone to 35 mg in morning and 15 mg in late afternoon. -09/23 taper down by 50% from original dose per Dr. Garcia, current dose prednisone 35 mg da varun. -Plan for possible taper at next visit 09/29, will go down by 5 mg weekly if rash continue s to improve. -IST as below Prophylaxis/Treatment: -Tacrolimus with levels biweekly and goal 5-10 -Methotrexate 15 mg/m IV on day +1, and 10 mg/m IV on days +3, +6 and +11. Received al l doses in full with leucovorin rescue after day +6 and +11 doses. Acute GvHD Staging: Skin: Grade 3 Gut: Grade 0 Liver: Grade 0 Overall stage: 2 HEENT: Conjunctival Injection: right eye. Injection developed ~2 days prior to discharge from hosp ital with no associated discharge or URI symptoms. Evaluated by Ophthalmology and DDx includ es infectious causes vs inflammatory (scleritis or anterior uveitis) vs medication induced. Clinical presentation seems to be most consistent with inflammatory/uveitic etiology. Patien t saw ophthalmology on 09/15/15 and found to have subconjunctival hemorrhage. -per ophthalmology patient using Pred forte twice a day -patient to follow-up with ophthalmology in 2 weeks, scheduled on 09/28 Pulmonary: Pretransplant PFTs completed on 08/09/15 showed [...] of Zofran BID and oxycodone PRN -docusate 100 mg tablet daily as needed for constipation. Hold for loose [...] Lab Results Component Value Date CMVQUANTPCR Undetected 09/21/2015 CMVQUANTPCR Undetected 09/12/2015 CMVQUANTPCR Undetected 09/05/2015 CMVQUANTPCR Undetected 08/29/2015 Antifungal: Posaconazole as of 09/15/15 with HD steroids for antifungal prophylaxis and we wi ll follow weekly Galactomannan assays. Lab Results Component Value Date GALACTO Negative 09/21/2015 PCP proph: Pentamidine IV for PCP prophlaxis given on 09/12/15. Bactrim for PCP coverage will be started between day +30-+40 if their platelets are >50,000 to be taken until off all imu nosuppression. If platelets are low will give Pentamadine until platelets recover. IgG: IgG level will be followed every other week and replaced prn if it falls below 300 . Lab Results Component Value Date IGG 648* 09/21/2015 Fluid/Nutrition/Lytes: Nutrition: Current diet -- low bacteria. Encourage po intake as tolerated with a goal of co nsistently drinking at least 2L calorie containing fluids per day. IV Fluid: None indicated today. Lytes: Continue to check chemistries twice weekly. Replace per supportive care protocol. -Hypomagnesemia: replace in clinic PRN Plan: -Mg++ 4g IV in clinic today. -Follow-up on BMBx results, procedure done today 09/26 - see separate encounter for details. -The tacrolimus dose will be adjusted when the tacrolimus trough is available. -Continue Triamcinolone cream to rash TID. -Plan to reduce steroids weekly, next taper planned 09/30/15 if rash continues to improve. -Okay to take docusate 100 mg tablet daily as needed for constipation. Hold for loose stool s. -Return to clinic 09/30/15 to see me, sooner prn. Em Saunders PA-C [facility] [address] Mailcode: [place] [address] documented in this encounter Plan [...] | 2019 | Visit | Malignancy | [facility] | | | | | | [facility] | | | | | | [place], [place] | | | | | | [address] | | | | | | [phone] | | | | | | | | +--------+---------+ + + + documented as of this encounter Results CBC+DIFF,POC (09/27/2015 11:05 AM PDT) + + + [...] [place] | [address] | [place], [place] | | | [address] | [facility] | [address] | | | TESTS | | | [...] | TOTAL, POC | | mg/dL | [place] | | | | | [...] [place] | [address] | [place], [place] | | | [place] [address] | [facility] | [address] | | | TESTS | | | [...] | + + + + + | [facility] | [address] | [place] [address] | | | SERVICES, SPECIAL | PARK [...] [facility] | [address] | [place] [address] | | | SERVICES, CORE | PARK [...] YESSICA LOZA | [address] | [place] [address] | | | SERVICES, INDRA | PARK [...]
--- OUTSIDE RECORDS SUMMARY | ~2019-05-17 | XMS | Encounter Summary ---
Demographics + + + | Address | [address] | | | [place] [address] | + + + | Home Phone [...] Team Providers + +------+ + | Care Fur Stylist Name | Role | Phone | [...] Description | +--------+--------+ + + + | 10/17/ | Refill | Center for | Aspen Cummins FNP | Refill Request | | 2017 | | Hematologic | [address] | | | | | Malignancies at | [address] | | | | | [address] | [place], [place] | | | | | [address] | [address] | | | | | [address] Mailcode: | [phone] | | | | | [facility] | | | | | | [place], | | | | | | [place] [address] | | | | | | [phone] | | | +--------+--------+ + + + [...] [address] | | | | | | [place] | | | | | | [address] | | | | | | [phone] | | | | | | | | +--------+---------+ + + + documented as of this encounter Visit Diagnoses Not on filedocumented in this encounter"
--- OUTSIDE RECORDS SUMMARY | ~2019-05-17 | XMS | Encounter Summary ---
Demographics + + + | Address | [address] | | | [place] [address] | + + + | Home Phone [...] Author + + + | Author | [facility] | + + + | Organization | [facility] | + + + | Address | Unknown | + + + | Phone | Unavailable | + + + Support + + +---------+ + | Name | Relationship | Address | Phone | + + +---------+ + | Gabriel Kelly | ECON | Unknown | | + + +---------+ + Care Team Providers + +------+ + | Care Kennel Manager Dog Track Name | Role | Phone | + +------+ + | No Pcp Per Patient | PCP | Unavailable | + +------+ + Reason for Visit + + + | Reason | Comments | + + + | Medication | drug interaction | + + + Encounter Details +--------+ + + + + | Date | Type | Department | Care Team | Description | +--------+ + + + + | 11/02/ | Telephone | Center for | Aspen Cummins FNP | Medication (drug | | 2017 | | Hematologic | [address] | interaction) | | | | Malignancies at | [address] | | | | | [facility] | [place], [place] | | | | | [address] | [address] | | | | | [address]bi Mailcode: | [phone] | | | | | [facility] [place] | | | | | | [facility] [place], | | | | | | [place] [address] | | | | | | [phone] | | | +--------+ + + + [...] 2019 | Visit | Malignancy | [address] [facility] | | | | | | [address] | | | | | | [place] | | | | | | [address] | | | | | | [phone] | | | | | | | | +--------+---------+ + + + documented as of this encounter Visit Diagnoses Not on filedocumented in this encounter"
--- OUTSIDE RECORDS SUMMARY | ~2019-05-17 | XMS | Encounter Summary ---
Demographics + + + | Address | [address] | | | [place] [address] | + + + | Home Phone [...] Team Providers + +------+ + | Care Darkroom Technician Name | Role | Phone | + +------+ + | No Pcp Per Patient | PCP | Unavailable | + +------+ + Encounter Details +--------+ + + + + | Date | Type | Department | Care Team | Description | +--------+ + + + + | 11/29/ | Documentati | Center for | Work, Social | | | 2017 | on | Hematologic | | | | | | Malignancies at | | | | | | [facility] | | | | | | [address] | | | | | | [place] Mailcode: | | | | | | [facility] | | | | | | [place], | | | | | | [place] [address] | | | | | | [phone] | | | +--------+ + + + [...] [address] | | | | | | [place], [place] | | | | | | [address] | | | | | | [phone] | | | | | | | | +--------+---------+ + + + documented as of this encounter Visit Diagnoses Not on filedocumented in this encounter"
--- OUTSIDE RECORDS SUMMARY | ~2019-05-17 | XMS | Encounter Summary ---
Demographics + + + | Address | [address] | | | [place] [address] | + + + | Home Phone [...] Team Providers + +------+ + | Care Slipper Maker Name | Role | Phone | + +------+ + | Pending Pcp Addition | PCP | Unavailable | + +------+ + Reason for Visit + + + | Reason | Comments | + + + | Transplant | LIT HLA - Family Results | + + + Encounter Details +--------+ + + + + | Date | Type | Department | Care Team | Description | +--------+ + + + + | 12// | Documentati | Kidney Transplant | Luis Carlos Sanders, | Transplant (LIT HLA | | 2014 | on | at [facility] [address] | [address] | - Family Results ) | | | | [address] | [address] | | | | | [place] Mailcode: | [place], [place] | | | | | [address] [facility] | [address] | | | | | [address] | [phone] | | | | | [place], [place] | | | | | | [address] | | | | | | [phone] | | | +--------+ + + + [...] [address] | | | | | | [place], [place] | | | | | | [address] | | | | | | [phone] | | | | | | | | +--------+---------+ + + + documented as of this encounter Visit Diagnoses Not on filedocumented in this encounter"
--- OUTSIDE RECORDS SUMMARY | ~2019-05-17 | XMS | Encounter Summary ---
Demographics + + + | Address | [address] | | | [place] [address] | + + + | Home Phone [...] Team Providers + +------+ + | Care Clutch Assembler Name | Role | Phone | [...] Description | +--------+--------+ + + + | 02/28/ | Refill | Center for | Aspen Cummins FNP | Refill Request | | 2017 | | Hematologic | [address] | | | | | Malignancies at | [address] | | | | | [address] | [place], [place] | | | | | [address] | [address] | | | | | [address] Mailcode: | [phone] | | | | | [facility] | | | | | | [place], | | | | | | [place] [address] | | | | | | [phone] | | | +--------+--------+ + + + [...] | | | | | | [place] | | | | | | [address] | | | | | | [phone] | | | | | | | | +--------+---------+ + + + documented as of this encounter Visit Diagnoses Not on filedocumented in this encounter"
--- OUTSIDE RECORDS SUMMARY | ~2019-05-17 | XMS | Clinical Summary ---
Demographics + + + | Address | [address] | | | [place] [address] | + + + | Home Phone | | + + + | Preferred Language | Unknown | + + + | Marital Status | | + + + | Episcopal Affiliation | SPI | + + + | Race | White | + + + | Ethnic Group | Not or | + + + Author + + + | Author | [facility] | + + + | Organization | [facility] | + + + | Address | Unknown | + + + | Phone | Unavailable | + + + Support + + +---------+ + | Name | Relationship | Address | Phone | + + +---------+ + | Gabriel Kelly | ECON | Unknown | | + + +---------+ + Care Team Providers + +------+ + | Care Computator Name | Role | Phone | + +------+ + | Zayda Hinton | PCP | | + +------+ + Source Comments YESSICA is fully live on both [facility] and [facility] Allergies No Known Allergies Medications + + + +---------+------+------+-------+ | Medication | Sig | Dispensed | Refills | Star | End | Statu | | | | | | t | Date | s | | | | | | Date | | | + + + +---------+------+------+-------+ | acyclovir 800 mg | Take 1 tablet by | 60 | 5 | 04/1 | | Activ | | oral | mouth two times | tablet | | 5/20 | | e | | tabletIndications: | daily. | | | 19 | | | | Prevention of Herpes | | | | | | | | Zoster in | | | | | | | | Immunocompromised | | | | | | | | Patient | | | | | | | + + + +---------+------+------+-------+ | predniSONE 1 mg | Take 9 mg by mouth | 120 | 3 | 11/06 | | Activ | | oral | once daily. Combine | tablet | | 09/25 | | e | | tabletIndications: | with 5 mg tabs | | | 19 | | | | GvHD | Indications: GvHD | | | | | | + + + +---------+------+------+-------+ +---+ + | | Additional | | | informationPatient | | | not taking. Reported | | | on 05/15/2019 1:18 | | | PM | +---+ + + + +---+---+------+---+-------+ | acetaminophen 500 | Take 2 tablets by | | 0 | 12/07 | | Activ | | mg oral | mouth three times | | | 09/25 | | e | | tabletIndications: | daily. Indications: | | | 19 | | | | pain | Pain | | | | | | + + +---+---+------+---+-------+ +---+ + | | Additional | | | informationPatient | | | not taking. Reported | | | on 05/15/2019 1:18 | | | PM | +---+ + + + +---+---+------+---+-------+ | polyethylene | Mix 1 packet and | | 0 | 06/ | | Activ | | glycol 17 gram oral | take orally once | | | 09/25 | | e | | powder in | daily. Hold for | | | 19 | | | | packetIndications: | loose stool | | | | | | | constipation | Indications: | | | | | | | | constipation | | | | | | + + +---+---+------+---+-------+ +---+ + | | Additional | | | informationPatient | | | not taking. Reported | | | on 05/15/2019 1:18 | | | PM | +---+ + + + +---+---+------+---+-------+ | senna-docusate | Take 2 tablets by | | 0 | 06/1 | | Activ | | 8.6-50 mg oral | mouth two times | | | 3/20 | | e | | tabletIndications: | daily. Hold for | | | 19 | | | | constipation | loose stool | | | | | | | | Indications: | | | | | | | | constipation | | | | | | + + +---+---+------+---+-------+ +---+ + | | Additional | | | informationPatient | | | not taking. Reported | | | on 05/15/2019 1:18 | | | PM | +---+ + + + +--------+---+------+---+-------+ | oxyCODONE | Take 1 tablet by | 30 | 0 | 06/1 | | Activ | | (immediate release) | mouth every four | tablet | | 3/20 | | e | | 5 mg oral tablet | hours as needed for | | | 19 | | | | | moderate pain | | | | | | | | (unresponsive to | | | | | | | | non-opioid | | | | | | | | medication). | | | | | | + + +--------+---+------+---+-------+ +---+ + | | Additional | | | informationPatient | | | not taking. Reported | | | on 01/06/2019 9:03 | | | AM | +---+ + + + +--------+---+------+---+-------+ | ALPRAZolam 0.5 mg | Take 1 tablet by | 10 | 0 | 11/0 | | Activ | | oral | mouth twice daily as | tablet | | 01/25 | | e | | tabletIndications: | needed. | | | 19 | | | | anxiety | Indications: anxious | | | | | | + + +--------+---+------+---+-------+ Active Problems + + + | Problem | Noted Date | + + + | Avascular necrosis of bone of left hip | 09/06/2016 | + + + | GVHD (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 host disease) | 09/15/2015 | + + + | Red eye | 09/13/2015 | + + + | Choroidal nevus of left eye | 09/13/2015 | + + + | Nasal congestion | 09/06/2015 | + + + | Skin rash | 09/06/2015 | + + + | On total parenteral nutrition (TPN) | 09/05/2015 | + + + | Hypoalbuminemia due to protein-calorie malnutrition | 09/05/2015 | + + + | Hypomagnesemia | 09/05/2015 | + + + | Mucositis due to chemotherapy | 09/01/2015 | + + + | Neutropenic fever | 08/30/2015 | + + + | Cellulitis | 08/29/2015 | + + + | Pancytopenia due to chemotherapy | 08/29/2015 | + + + | Hx of allogeneic stem cell transplant | 08/24/2015 | + + + | CINV (chemotherapy-induced nausea and vomiting) | 08/24/2015 | + + + | Immunocompromised state associated with stem cell transplant | 08/19/2015 | + + + | ADHD (attention deficit hyperactivity disorder) | 08/18/2015 | + + + | Electrolyte abnormality | 05/29/2015 | + + + | [facility] RESEARCH PROTOCOL PATIENT (RESPRO) | 05/28/2015 | + + + + + | Overview: Patient was consented to the study eIRB #[id number] | | titled "Pathogenesis of Acute Leukemia, Lymphoproliferative | | Disorders, Myelodysplastic Syndromes, and Myeloproliferative | | Disorders" by Alexandria Reyes on 05/27/15. Patient declined to have a | | skin biopsy taken during the standard of care bone marrow biopsy. | | Patient was consented to the study eIRB #[id number] titled | | "Pathogenesis of Acute Leukemia, Lymphoproliferative Disorders, | | Myelodysplastic Syndromes, and Myeloproliferative Disorders" by | | ORLY Monroy, on 07/07/15. Patient agreed to have a | | skin biopsy taken during the standard of care bone marrow biopsy. | | | + + + + + | Acute myeloid leukemia (AML), M4 (HCC)- primary induction failure | 05/20/2015 | + + + Resolved Problems + + + + | Problem | Noted | Resolved | | | Date | Date | + + + + | Dehydration | 09/05/19 | | | | 16 | 6 | + + + + Encounters +--------+ + + + + | Date | Type | Specialty | Care Team | Description | +--------+ + + + + | 05/17/ | Telephone | Hematology & | Sara Henley, | | | 2019 | | Oncology | RN PHYSICIAN OFFICE | | +--------+ + + + + | 05/15/ | Office | Hematology | Aspen Cummins FNP | Pancytopenia (HCC) | | 2019 | Visit | Malignancy | | (Primary Dx); Acute | | | | | | myelomonocytic | | | | | | leukemia in | | | | | | remission (HCC); | | | | | | Disease of blood and | | | | | | blood-forming | | | | | | organs, unspecified | | | | | | ; Encounter for | | | | | | observation for | | | | | | other suspected | | | | | | diseases and | | | | | | conditions ruled out | | | | | | | +--------+ + + + + | 05/15/ | Hospital | Hematology & | A, Pod | | | 2019 | Encounter | Oncology | | | +--------+ + + + + | 05/15/ | Office | Hematology | Yari Garcia MD | Arrived | | 2019 | Visit | Malignancy | | | +--------+ + + + + | 05/15/ | Lab | Phlebotomy | | 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 | | | | stem cell transplant | | | | | | (HCC); GVHD (graft | | | | | | versus host disease) | | | | | | (HCC) | +--------+ + + + + | 05/15/ | Documentati | Hematology | Work, Social | Questionnaire | | 2019 | on | Malignancy | | (distress screen) | +--------+ + + + + | 05/15/ | Travel | | | | | 2019 | | | | | +--------+ + + + + | 05/14/ | Telephone | Hematology | Yari Garcia MD | | | 2018 | | Malignancy | | | +--------+ + + + + | 05/12/ | Telephone | Hematology | Yari Garcia MD | | | 2018 | | Malignancy | | | +--------+ + + + + | 05/08/ | Telephone | Hematology | Yari Garcia MD | Lab Draw (pt had | | 2018 | | Malignancy | | labs drawn in | | | | | | [place] [facility] | | | | | | care 2 days ago | | | | | | (05/06) pt was | | | | | | curious if labs were | | | | | | sent to Dr Garcia, | | | | | | and if pt can get a | | | | | | call from Dr Garcia or | | | | | | [place] about | | | | | | results of labs ) | +--------+ + + + + from Last 3 Months Immunizations + + + + | Name | Administration Dates | Next Due | + + + + | DTP-Hib | 12/27/1993 | | + + + + | DTaP | 02/05/1996 | | + + + + | HPV, Quadrivalent | 11/23/2016 | | + + + + | HepA-HepB | 06/18/2017, 11/23/2016 | | + + + + | HepA-Ped 2 Dose | 09/24/2006, 07/14/2004 | | + + + + | HepB-Adult | 12/28/2016, 05/17/2009 | | + + + + | Hib-PRP-T | 06/18/2017, 12/28/2016, 11/23/2016 | | + + + + | Hpv 9 | 06/18/2017, 12/28/2016 | | + + + + | Influenza, | 05/24/2017, 06/28/2016, 04/19/2016 | | | injectable, | | | | quadrivalent, | | | | preservative free | | | | (IIV4) | | | + + + + | Influenza, split | 04/21/2003 | | | (incl. purified | | | | surface antigen) | | | + + + + | MCV4P | 12/28/2016, 11/23/2016, 10/07/2007 | | + + + + | MMR | 05/21/2000, 12/27/1993, 12/02/1991 | | + + + + | Meningococcal B | 12/28/2016, 11/23/2016 | | | (Bexsero) | | | + + + + | PCV13 | 11/23/2016, 06/28/2016, 04/19/2016 | | + + + + | Polio-Inject | 06/18/2017, 12/28/2016, 11/23/2016 | | + + + + | Polio-Oral | 02/05/1996, 12/27/1993, 03/22/1992, | | | | 01/08/1991, 1990 | | + + + + | Td (adult), 2 Lf | 06/18/2017, 12/28/2016, 07/14/2004 | | | tetanus toxoid, | | | | preservative free, | | | | adsorbed | | | + + + + | Tdap | 11/23/2016, 10/07/2007 | | + + + + Family History + + +------+ + | Medical History | Relation | Name | Comments | + + +------+ + | Heart Disease | Maternal | | | | | Grandfath | | | | | er | | | + + +------+ + | Cancer | Maternal | | | | | Grandmoth | | | | | er | | | + + +------+ + | Heart Disease | Paternal | | | | | Grandfath | | | | | er | | | + + +------+ + | Cancer | Paternal | | | | | Grandmoth | | | | | er | | | + + +------+ + + +------+ + + | Relation | Name | Status | Comments | + +------+ + + | Brother | | Alive | | + +------+ + + | Brother | | Alive | | + +------+ + + | Father | | Alive | | + +------+ + + | Maternal Aunt | | Alive | | + +------+ + + | Maternal Aunt | | Alive | | + +------+ + + | Maternal Cousin | | Alive | | + +------+ + + | Maternal Cousin | | Alive | | + +------+ + + | Maternal Cousin | | Alive | | + +------+ + + | Maternal Cousin | | Alive | | + +------+ + + | Maternal Cousin | | Alive | | + +------+ + + | Maternal Cousin | | Alive | | + +------+ + + | Maternal Cousin | | Alive | | + +------+ + + | Maternal Cousin | | | motor cycle accident | + +------+ + + | Maternal Grandfather | | | heart attack | | | | (Age | | | | | 50) | | + +------+ + + | Maternal Grandmother | | | cancer | | | | (Age | | | | | 77) | | + +------+ + + | Maternal Uncle | | Alive | | + +------+ + + | Maternal Uncle | | Alive | | + +------+ + + | Mother | | Alive | | + +------+ + + | Paternal Aunt | | Alive | | + +------+ + + | Paternal Aunt | | Alive | | + +------+ + + | Paternal Aunt | | Alive | | + +------+ + + | Paternal Cousin | | Alive | | + +------+ + + | Paternal Cousin | | Alive | | + +------+ + + | Paternal Cousin | | Alive | | + +------+ + + | Paternal Cousin | | Alive | | + +------+ + + | Paternal Cousin | | Alive | | + +------+ + + | Paternal Cousin | | Alive | | + +------+ + + | Paternal Cousin | | Alive | | + +------+ + + | Paternal Cousin | | Alive | | + +------+ + + | Paternal Cousin | | Alive | | + +------+ + + | Paternal Grandfather | | | heart disease | | | | (Age | | | | | 75) | | + +------+ + + | Paternal Grandmother | | | breast cancer | + +------+ + + | Son | | Alive | | + +------+ + + Social History + +-------+ +--------+ [...] | | + +---+---+---+ + + | Tobacco Cessation: Counseling Given: No | | Comments: used 1 year | + [...] + + + | Blood Pressure | 130/69 | 05/15/2019 1:17 PM | | | | | PST | | + + + + + | Pulse | 97 | 05/15/2019 1:17 PM | | | | | PST | | + + + + + | Temperature | 37.3 C (99.2 F) | 05/15/2019 1:17 PM | | | | | PST | | + + + + + | Respiratory Rate | 20 | 05/15/2019 1:17 PM | | | | | PST | | + + + + + | Oxygen Saturation | 100% | 05/15/2019 1:17 PM | | | | | PST | | + + + + + | Inhaled Oxygen | - | - | | | Concentration | | | | + + + + + | Weight | 75 kg (165 lb 5.5 | 05/15/2019 1:17 PM | | | | oz) | PST | | + + + + + | Height | 188 cm (6' 2") | 01/06/2019 9:00 AM | | | | | PDT | | + + + + + | Body Mass Index | 21.23 | 01/06/2019 9:00 AM | | | | | PDT | | + + + + + Plan of Treatment +--------+---------+ + + + [...] Rd | | | | | | [place], [place] | | | | | | [address] | | | | | | [phone] | | | | | | | | +--------+---------+ + + + + + + + + | Health Maintenance | Due Date | Last Done | Comments | + + + + + | Pneumococcal | | 11/23/2016, 06/28/2016, | | | vaccination (2 of 3 | 7 | 04/19/2016 | | | - PPSV23) | | | | + + + + + | Influenza (Flu) | | 05/24/2017, 06/28/2016, | | | vaccination (#1) | 9 | 04/19/2016, Additional history | | | | | exists | | + + + + + Implants + +------+--------+ +--------+--------+--------+ | Implanted | Type | Area | Manufacture | Device | Shelf | Model | | | | | r | | Expira | / | | | | | | Identi | tion | Serial | | | | | | fier | Date | / Lot | + +------+--------+ +--------+--------+--------+ | Shell Acetabular 56mm Hip | | Left: | MATT | | 08/08/ | 00-620 | | Primary Modular Cluster Hole | | Hip | | | 2026 | 2-056- | | Trabecular Metal Tantalum | | | | | | 22 / | | Titanium Sterile - | | | | | | /[id number] | | [id number]: Qty: 1 on | | | | | | 663 | | 09/07/2016 by Lobo Jeffers | | | | | | | | MD Ernesto at [facility] | | | | | | | | LOC | | | | | | | + +------+--------+ +--------+--------+--------+ | Screw Bone 6.5mm 35mm Trilogy | | Left: | MATT | | 07/08/ | 00-625 | | Tivanium Cortex Hip Self Tap | | Hip | | | 2025 | 0-065- | | Sterile - | | | | | | 35 / | | [id number]: Qty: 1 on | | | | | | /[id number] | | 09/07/2016 by Lobo Jeffers | | | | | | 384 | | MD Ernesto at [facility] | | | | | | | | LOC | | | | | | | + +------+--------+ +--------+--------+--------+ | Liner Acetabular Trilogy | | Left: | MATT | | 12/06/ | 6305-5 | | Standard Neutral 7.9mm 56mm | | Hip | | | 2020 | 6-36 / | | 36mm Longevity Hip Sterile | | | | | | | | Primary Modular Cup - | | | | | | /[id number] | | [id number]: Qty: 1 on | | | | | | 265 | | 09/07/2016 by Lobo Jeffers | | | | | | | | MD Ernesto at [facility] | | | | | | | | LOC | | | | | | | + +------+--------+ +--------+--------+--------+ | Stem Femoral 138mm 13mm | | Left: | MATT | | 02/05/ | 00-786 | | Primary Pressfit Trabecular | | Hip | | | 2025 | 4-013- | | Metal Tivanium 06/21 43.5mm | | | | | | 20 / | | Straight Extended - | | | | | | /[id number] | | [id number]: Qty: 1 on | | | | | | 872 | | 09/07/2016 by Lobo Jeffers | | | | | | | | MD Ernesto at [facility] | | | | | | | | LOC | | | | | | | + +------+--------+ +--------+--------+--------+ | Head Femoral +0mm 12/14 | | Left: | MATT | | 08/08/ | 00-877 | | Medium 36mm Hip Acetabulum | | Hip | | | 2025 | 5-036- | | Biolox Delta Trilogy It | | | | | | 02 / | | Continuum Sterile - | | | | | | /[id number] | | [id number]: Qty: 1 on | | | | | | 58 | | 09/07/2016 by Lobo Jeffers | | | | | | | | MD Ernesto at [facility] | | | | | | | | LOC | | | | | | | + +------+--------+ +--------+--------+--------+ | Head Femoral +0mm 12/14 | | Right: | MATT | | 04/07/ | [id number] | | Medium 36mm Hip Acetabulum | | Hip | | | 2027 | 84704 | | Biolox Delta Trilogy It | | | | | | / | | Continuum Sterile - | | | | | | /[id number] | | [id number]: Qty: 1 on | | | | | | 28 | | 12/19/2018 by Lobo Jeffers | | | | | | | | MD Ernesto at [facility] | | | | | | | | LOC | | | | | | | + +------+--------+ +--------+--------+--------+ | Shell Acetabular 56mm Hip | | Right: | MATT | | 07/08/ | [id number] | | Primary Modular Cluster Hole | | Hip | | | 2027 | 67784 | | Trabecular Metal Tantalum | | | | | | / | | Titanium Sterile - | | | | | | /[id number] | | [id number]: Qty: 1 on | | | | | | 937 | | 12/19/2018 by Lobo Jeffers | | | | | | | | MD Ernesto at [facility] | | | | | | | | LOC | | | | | | | + +------+--------+ +--------+--------+--------+ | Screw Bone 6.5mm 25mm Trilogy | | Right: | MATT | | 11/05/ | [id number] | | Tivanium Hip Cortical | | Hip | | | 2028 | 6525 / | | Acetabulum Self Tap Sterile - | | | | | | | | [id number]: Qty: 1 | | | | | | /06218 | | on 12/19/2018 by Zeyad, | | | | | | 886 | | Lobo Orozco MD at [facility] | | | | | | | | REV LOC | | | | | | | + +------+--------+ +--------+--------+--------+ | Liner Acetabular Trilogy | | Right: | MATT | | 08/08/ | 794105 | | Standard Neutral 7.9mm 56mm | | Hip | | | 2023 | 15234 | | 36mm Longevity Hip Sterile | | | | | | / | | Primary Modular Cup - | | | | | | /[id number] | | [id number]: Qty: 1 on | | | | | | 456 | | 12/19/2018 by Lobo Jeffers | | | | | | | | MD Ernesto at [facility] | | | | | | | | LOC | | | | | | | + +------+--------+ +--------+--------+--------+ | Stem Femoral 138mm 13mm | | Right: | MATT | | 04/07/ | 168235 | | Primary Pressfit Trabecular | | Hip | | | 2020 | 70883 | | Metal Tivanium 06/21 43.5mm | | | | | | / | | Straight Extended - | | | | | | /02091 | | [id number]: Qty: 1 on | | | | | | 555 | | 12/19/2018 by Lobo Jeffers | | | | | | | | MD Ernesto at [facility] | | | | | | | | LOC | | | | | | | + +------+--------+ +--------+--------+--------+ Procedures + +--------+ + + + | Procedure Name | Priori | Date/Time | Associated Diagnosis | Comments | | | ty | | | | + +--------+ + + + | [place] DX BONE MARROW BX | Routin | 05/15/2019 | Pancytopenia (HCC) | | | & ASPIR | e | 3:34 PM | Acute | | | | | PST | myelomonocytic | | | | | [...] | [facility] - COMPLETE | Routin | 05/15/2019 | Hx of allogeneic | Results for this | | METABOLIC SET | e | 11:53 AM | stem cell transplant | procedure are in the | | | | PST | (HCC) GVHD (graft | results section. | | | | | versus host disease) | | | | | | (HCC) | | + +--------+ + + + | CBC AND AUTO DIFF - | Routin | 05/15/2019 | Hx of allogeneic | Results for this | | [facility] | e | 11:53 AM | stem cell transplant | procedure are in the | | | | PST | (HCC) GVHD (graft | results section. | | | | | versus host disease) | | | | | | (HCC) | | + +--------+ + + + from Last 3 Months Results LEUKEMIA/LYMPHOMA MARKERS - BONE MARROW (05/15/2019 [...] | | | | ent of Pathology, [place] | | | | | | Health [...] CD123 | | | | | | [id number] HLA-DR sKappa | | | | | [...] + + + + + | [facility] | [address] | [place] [address] | | | PATHOLOGY | [address] | | | + + + + + | [facility] | [address] | [place] [address] | | | [facility] | | | | | HEALTH + HEALING | | | | + + + + + CBC AND AUTO DIFF - [facility] (05/15/2019 11:53 AM PST) + + + + + + | Component | Value | Ref Range | Performed | Pathologist | | | | | At | Signature | + + + + + + | WHITE CELL | 2.50 (L) | 3.50 - 10.80 | [facility] | | | COUNT | | K/cu mm | LABORATORY | | | | | | SERVICES, | | | | | | [facility] | | + + + + + + | RED CELL | 4.22 (L) | 4.50 - 6.00 | [facility] | | | COUNT | | M/cu mm | LABORATORY | | | | | | SERVICES, | | | | | | [facility] | | | | | | [facility] | | + + + + + + | HEMOGLOBIN | 12.5 (L) | 13.5 - 17.5 | [facility] | | | | | g/dL | LABORATORY | | | | | | SERVICES, | | | | | | [facility] + | | | | | | [facility] | | + + + + + + | HEMATOCRIT | 38.5 (L) | 41.0 - 53.0 % | [facility] | | | | | | LABORATORY | | | | | | SERVICES, | | | | | | [facility] | | | | | | [facility] | | + + + + + + | MCV | 91.2 | 80.0 - 100.0 fL | [facility] | | | | | | LABORATORY | | | | | | SERVICES, | | | | | | [facility] + | | | | | | [facility] | | + + + + + + | MCHC | 32.5 | 32.0 - 36.0 | [facility] | | | | | g/dL | LABORATORY | | | | | | SERVICES, | | | | | | [facility] + | | | | | | [facility] | | + + + + + + | RDW SD | 47.8 (H) | 35.1 - 46.3 fL | [facility] | | | | | | LABORATORY | | | | | | SERVICES, | | | | | | [facility] | | | | | | [facility] | | + + + + + + | PLATELET | 51 (L) | 150 - 400 K/cu | [facility] | | | COUNT | | mm | LABORATORY | | | | | | SERVICES, | | | | | | [facility] + | | | | | | [facility] | | + + + + + + | MPV | 9.4 (L) | 9.7 - 12.3 fL | [facility] | | | | | | LABORATORY | | | | | | SERVICES, | | | | | | [facility] + | | | | | | [facility] | | + + + + + + | NRBC% | 0.0 | 0.0 - 0.3 % | [facility] | | | | | | LABORATORY | | | | | | SERVICES, | | | | | | [facility] + | | | | | | [facility] | | + + + + + + | NRBC# | 0.00 | 0.00 - 0.02 | [facility] | | | | | K/cu mm | LABORATORY | | | | | | SERVICES, | | | | | | [facility] + | | | | | | [facility] | | + + + + + + | NEUTROPHIL | 26.8 (L) | 50.0 - 70.0 % | [facility] | | | % | | | LABORATORY | | | | | | SERVICES, | | | | | | [facility] + | | | | | | [facility] | | + + + + + + | LYMPHOCYTE | 56.4 (H) | 18.0 - 42.0 % | [facility] | | | % | | | LABORATORY | | | | | | SERVICES, | | | | | | [facility] + | | | | | | [facility] | | + + + + + + | MONOCYTE % | 14.8 (H) | 3.5 - 9.0 % | [facility] | | | | | | LABORATORY | | | | | | SERVICES, | | | | | | [facility] + | | | | | | [facility] | | + + + + + + | EOS % | 0.8 (L) | 1.0 - 3.0 % | [facility] | | | | | | LABORATORY | | | | | | SERVICES, | | | | | | [facility] + | | | | | | [facility] | | + + + + + + | BASO % | 0.4 | 0.0 - 2.0 % | [facility] | | | | | | LABORATORY | | | | | | SERVICES, | | | | | | [facility] + | | | | | | [facility] | | + + + + + + | IG% | 0.8 | 0.0 - 1.0 % | [facility] | | | | | | LABORATORY | | | | | | SERVICES, | | | | | | [facility] | [facility] + | | | | | | [facility] | | + + + + + + | NEUTROPHIL | 0.67 (L) | 1.80 - 7.70 | [facility] | | | # | | K/cu mm | LABORATORY | | | | | | SERVICES, | | | | | | [facility] | [facility] + | | | | | | [facility] | | + + + + + + | NEUTROPHIL | 0.67 (L)Comment: | 1.80 - 7.70 | [facility] | | | # Prelim | Preliminary automated | K/cu mm | LABORATORY | | | | neutrophil result. | | SERVICES, | | | | Refer to Neutrophil # | | [facility] | | | for final neutrophil | | HEALTH + | | | | result, which may differ | | HEALING | | | | from this preliminary | | | | | | value. | | | | + + + + + + | LYMPHOCYTE | 1.41 | 1.00 - 4.80 | [facility] | | | # | | K/cu mm | LABORATORY | | | | | | SERVICES, | | | | | | [facility] + | | | | | | [facility] | | + + + + + + | MONOCYTE # | 0.37 | 0.10 - 0.90 | [facility] | | | | | K/cu mm | LABORATORY | | | | | | SERVICES, | | | | | | [facility] + | | | | | | [facility] | | + + + + + + | EOS # | 0.02 | 0.00 - 0.50 | [facility] | | | | | K/cu mm | LABORATORY | | | | | | SERVICES, | | | | | | [facility] + | | | | | | [facility] | | + + + + + + | BASO # | 0.01 | 0.00 - 0.10 | [facility] | | | | | K/cu mm | LABORATORY | | | | | | SERVICES, | | | | | | [facility] + | | | | | | [facility] | | + + + + + + | IG# | 0.02 | 0.00 - 0.10 | [facility] | | | | | K/cu mm | LABORATORY | | | | | | SERVICES, | | | | | | [facility] + | | | | | | [facility] | | + + + + + + + + | Specimen | + + | Blood - Blood | | (substance) | + + + + + | Narrative | Performed At | + + + | Increased immature granulocytes (IG) define a left shift. Immature | [facility] | | granulocytes (IG) are an automated count of metamyelocytes, myelocytes | LABORATORY | | and promyelocytes. Bands are not included in the IG count. Bands are | SERVICES, | | included in the neutrophil count. | [facility] + | | | [facility] | + + + + + + + + | Performing | Address | City/State/Zipcode | Phone Number | | Organization | | | | + + + + + | [facility] | [address] | [place] [address] | | | SERVICES, [facility] [place] | | | | [facility] + [facility]ALING | | | | + + + + + [facility] - COMPLETE METABOLIC SET (05/15/2019 11:53 AM PST) + +---------+ + + + | Component | Value | Ref Range | Performed | Pathologist | | | | | At | Signature | + +---------+ + + + | GLUCOSE, | 101 (H) | 70 - 99 mg/dL | [facility] | | | PLASMA | | | LABORATORY | | | (LAB) | | | SERVICES, | | | | | | [facility] | | | | | | [facility] | | + +---------+ + + + | BUN, PLASMA | 12 | 6 - 20 mg/dL | [facility] | | | (LAB) | | | LABORATORY | | | | | | SERVICES, | | | | | | [facility] + | | | | | | [facility]ALING | | + +---------+ + + + | CREATININE | 0.79 | 0.70 - 1.30 | [facility] | | | PLASMA | | mg/dL | LABORATORY | | | (LAB) | | | SERVICES, | | | | | | [facility] + | | | | | | [facility]ALING | | + +---------+ + + + | EGFR | >60 | >60 mL/min | [facility] | | | - | | | LABORATORY | | | ANGOLAN | | | SERVICES, | | | | | | [facility] + | | | | | | [facility]ALING | | + +---------+ + + + | EGFR NON | >60 | >60 mL/min | [facility] | | | -JOANNE | | | LABORATORY | | | RICAN | | | SERVICES, | | | | | | [facility] + | | | | | | [facility]ALING | | + +---------+ + + + | SODIUM, | 140 | 136 - 145 | [facility] | | | PLASMA | | mmol/L | LABORATORY | | | (LAB) | | | SERVICES, | | | | | | [facility] + | | | | | | [facility]ALING | | + +---------+ + + + | POTASSIUM, | 4.7 | 3.4 - 5.0 | [facility] | | | PLASMA | | mmol/L | LABORATORY | | | (LAB) | | | SERVICES, | | | | | | [facility] + | | | | | | [facility]AL[facility] | | + +---------+ + + + | CHLORIDE, | 103 | 97 - 108 mmol/L | [facility] | | | PLASMA | | | LABORATORY | | | (LAB) | | | SERVICES, | | | | | | [facility] + | | | | | | [facility]ALING | | + +---------+ + + + | TOTAL CO2, | 30 | 21 - 32 mmol/L | [facility] | | | PLASMA | | | LABORATORY | | | (LAB) | | | SERVICES, | | | | | | [facility] + | | | | | | [facility]ALING | | + +---------+ + + + | CALCIUM, | 9.3 | 8.6 - 10.2 | [facility] | | | PLASMA | | mg/dL | LABORATORY | | | (LAB) | | | SERVICES, | | | | | | [facility] | [facility] + | | | | | | [facility]AL[facility] | | + +---------+ + + + | CALCIUM(ALB | 9.4 | 8.6 - 10.2 | [facility] | | | CORRECTED) | | mg/dL | LABORATORY | | | | | | SERVICES, | | | | | | [facility] + | | | | | | [facility]ALING | | + +---------+ + + + | BILIRUBIN | 0.4 | 0.3 - 1.2 mg/dL | [facility] | | | TOTAL | | | LABORATORY | | | | | | SERVICES, | | | | | | [facility] + | | | | | | [facility]ALING | | + +---------+ + + + | TOTAL | 7.5 | 6.4 - 8.2 g/dL | [facility] | | | PROTEIN, | | | LABORATORY | | | PLASMA | | | SERVICES, | | | (LAB) | | | [facility] + | | | | | | [facility]ALING | | + +---------+ + + + | ALBUMIN, | 3.9 | 3.5 - 4.7 g/dL | [facility] | | | PLASMA | | | LABORATORY | | | (LAB) | | | SERVICES, | | | | | | [facility] + | | | | | | [facility]ALING | | + +---------+ + + + | ALK PHOS | 96 | 53 - 128 U/L | [facility] | | | | | | LABORATORY | | | | | | SERVICES, | | | | | | [facility] + | | | | | | [facility]ALING | | + +---------+ + + + | AST(SGOT) | 40 | <=41 U/L | [facility] | | | | | | LABORATORY | | | | | | SERVICES, | | | | | | [facility] + | | | | | | [facility]ALING | | + +---------+ + + + | ALT (SGPT) | 53 | <=60 U/L | [facility] | | | | | | LABORATORY | | | | | | SERVICES, | | | | | | [facility] + | | | | | | [facility]ALING | | + +---------+ + + + | ANION GAP | 7 | 4 - 11 mmol/L | [facility] | | | | | | LABORATORY | | | | | | SERVICES, | | | | | | [facility] + | | | | | | [facility]ALING | | + +---------+ + + + | ANION | 7 | 4 - 11 mmol/L | [facility] | | | GAP(ALB | | | LABORATORY | | | CORRECTED) | | | SERVICES, | | | | | | [facility] | [facility] + | | | | | | [facility]ALING | | + +---------+ + + + | POTASSIUM | No Hemo | | [facility] | | | CMNT | | | LABORATORY | | | | | | SERVICES, | | | | | | [facility] | [facility] + | | | | | | [facility]ALING | | + +---------+ + + + | BILI T CMNT | No Hemo | | [facility] | | | | | | LABORATORY | | | | | | SERVICES, | | | | | | [facility] | [facility] + | | | | | | [facility]ALING | | + +---------+ + + + | AST CMNT | No Hemo | | [facility] | | | | | | LABORATORY | | | | | | SERVICES, | | | | | | [facility] | [facility] + | | | | | | [facility]ALING | | + +---------+ + + + + + | Specimen | + + | Blood - Blood | | (substance) | + + + + + | Narrative | Performed At | + + + | GFR is estimated using the MDRD equation recommended by the National | [facility] | | Kidney Disease Education Program. Estimated GFR Interpretive | LABORATORY | | Information: <60 mL/min/1.73 sq m Chronic Kidney | SERVICES, | | Disease <15 mL/min/1.73 sq m Kidney Failure | [facility] | | Estimated GFR greater than 60 mL/min/1.73 sq m is of limited clinical | HEALTH + | | value. The MDRD equation is not valid in the following situations: | HEALING | | - Patients under 18 years of age - Severe malnutrition or obesity | | | - Vegetarian diet - Rapidly changing kidney function - Amputees, | | | paraplegics, or other muscle-wasting diseases | | + + + + + + + + | Performing | Address | City/State/Zipcode | Phone Number | | Organization | | | | + + + + + | [facility] | [address] | [place] [address] | | | [facility] | | | | | HEALTH + HEALING | | | | + + + + + from Last 3 Months Insurance + +--------+ +--------+ + +--------+ | Payer | Benefi | Subscriber | Effect | Phone | Address | Type | | | t Plan | ID | mickey | | | | | | / | | Dates | | | | | | Group | | | | | | + +--------+ +--------+ + +--------+ | MEDICARE | MEDICA | xxxxxxxxxxx | 11/07/19 | [phone] | [address] | Med[address] | | | RE A & | | 18-Pre | 1 | [phone] | [address] | | | B | | sent | | [place] | | | | | | | | [address] | | + +--------+ +--------+ + +--------+ + +--------+ +--------+ + + | Guarantor Name | Accoun | Relation to | Date | Phone | Billing Address | | | t Type | Patient | of | | | | | | | | | | + +--------+ +--------+ + + | Khurram Kelly | Person | Self | [birth year] | [address] | | [place] | al/Fam | | 1990 | | [place] [address] | | | varun | | | 6 (Home) | | + +--------+ +--------+ + + | Khurram Kelly | Case | Self | [birth year] | | [address] | | [place] | Rate | | 1990 | | [place] [address] | | | | | | 6 (Home) | | + +--------+ +--------+ + + | Vivek Kellyemiah | UFC | Self | [birth year] | | [address] | | [place] | [place]e | | 1991 | [phone] | [place] [address] | | | g Use | | | 6 ([place]) | | | | Only | | | | | + +--------+ +--------+ + + Advance Directives + + + + + | Code Status | Date | Date | Comments | | | Activated | Inactivated | | + + + + + | Full Code | 12/19/2018 | 12/20/2018 | | | | 2:51 PM | 8:48 PM | | + + + + + + + + +---+ | | | | | + + + +---+ | Full Code | 09/07/2016 | 09/08/2016 | | | | 11:57 AM | 7:54 PM | | + + + +---+ + + + +---+ | | | | | + + + +---+ | Full Code | 09/07/2016 | 09/07/2016 | | | | 6:02 AM | 11:57 AM | | + + + +---+ + + + +---+ | | | | | + + + +---+ | Full Code | 08/18/2015 | 09/13/2015 | | | | 4:43 PM | 9:44 PM | | + + + +---+ + + + +---+ | | | | | + + + +---+ | Full Code | 05/26/2015 | 07/08/2015 | | | | 10:34 PM | 11:07 PM | | + + + +---+
--- OUTSIDE RECORDS SUMMARY | ~2019-05-17 | XMS | Encounter Summary ---
Demographics + + + | Address | [address] | | | [place] [address] | + + + | Home Phone [...] Team Providers + +------+ + | Care Ict Development Manager Name | Role | Phone | + +------+ + | Pending Pcp Addition | PCP | Unavailable | + +------+ + Encounter Details +--------+ + + + + | Date | Type | Department | Care Team | Description | +--------+ + + + + | 10/26/ | [facility] | [facility] for | Aspen Cummins FNP | Other | | 2016 | | Hematologic | [address] | cytomegaloviral | | | | Malignancies at | [address] | diseases (HCC) | | | | [facility] | [place], [place] | (Primary Dx) | | | | [address] | [address] | | | | | Debi Burger Mailcode: | [phone] | | | | | [id number] | | | | | | [facility] [place], | | | | | | [place] [address] | | | | | | [phone] | | | +--------+ + + + [...] Rd | | | | | | [place], [place] | | | | | | [address] | | | | | | [phone] | | | | | | | | +--------+---------+ + + + documented as of this encounter Results X-RAY CHEST 2 VIEW [...] | | + +---------+ + + | [facility] | | | | | RADIOLOGY | | | | + +---------+ + + documented in this encounter Visit Diagnoses + + | Diagnosis | + + | Other cytomegaloviral diseases (HCC) - Primary | + + documented in this encounter"
--- OUTSIDE RECORDS SUMMARY | ~2019-05-17 | XMS | Encounter Summary ---
Demographics + + + | Address | [address] | | | [place] [address] | + + + | Home Phone [...] Team Providers + +------+ + | Care Scallop Shucker Name | Role | Phone | + [...] | | | | | | | [address] | | | | | | | [address] | | | | | | | [place], | | | | | | | [place] | | | | | | | [address] | | | | | | | Phone: | | | | | | | [phone] | | | | | | | Fax: | | | | | | | [phone] | +--------+--------+ + + + + Encounter [...] | | | | | | [facility] [address] | | | | | | [place], | | | | | | [place] [address] | | | | | | [phone] | | | +--------+ + + + [...] 2018 | Visit | Malignancy | [address] [facility] | | | | | | [address] | | | | | | [place], [place] | | | | | | [address] | | | | | | [phone] | | | | | | | [...] | | LEUKOREDUCED | | PST | ([facility]) | results section. | + +--------+ + + + | PRODUCT - RED CELLS | Routin | 2015 | Acute myeloid | Results for this | | LEUKOREDUCED | e | 8:22 AM | leukemia (AML), M4 | procedure are in the | | | | PST | ([facility]) | results section. | + +--------+ + + + | CBC+DIFF,POC | Routin | 2015 | Acute myeloid | Results for this | | | e | 8:18 AM | leukemia (AML), M4 | procedure are in the | | | | PST | ([facility]) | results section. | + +--------+ + + + | CMP, POC (BMP+LFT) | Routin | 2015 | Acute myeloid | Results for this | | | e | 8:16 AM | leukemia (AML), M4 | procedure are in the | | | | PST | ([facility]) | results section. | + +--------+ + + + | LDH TOTAL, PLASMA | Routin | 2015 | Acute myeloid | Results for this | | | e | 8:05 AM | leukemia (AML), M4 | procedure are in the | | | | PST | ([facility]) | results section. | + +--------+ + + + | TREATMENT PARAMETERS | Routin | 2015 | 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:04 AM | leukemia (AML), M4 | | | | | PST | ([facility]) | | + +--------+ + [...] | | [facility] | | PST | ([facility]) | | + +--------+ + + + | NURSING | Routin | 2015 | Acute myeloid | | | COMMUNICATION #2 - | e | 8:04 AM | leukemia (AML), M4 | | | [facility] | | PST | ([facility]) | | + +--------+ + + + | NURSING | Routin | 2015 | Acute myeloid | | | COMMUNICATION #1 - | e | 8:04 AM | leukemia (AML), M4 | | | [facility] | | PST | ([facility]) | | + +--------+ + + + | TREATMENT PARAMETERS | Routin | 2015 | Acute myeloid | | | #1 - [facility] | e | 8:04 AM | leukemia (AML), M4 | | | | | PST | ([facility]) | | + +--------+ + + + | TREATMENT PARAMETERS | Routin | 2015 | Acute myeloid | | | #1 - [facility] | e | 8:04 AM | leukemia (AML), M4 | | | | | PST | ([facility]) | | + +--------+ + [...] the | | | | PST | ([facility]) | results section. | + [...] + + + + | PRODUCT | [id number] | | [facility] | | | UNIT [...] + + + + | EXPIRATION | [id number] | | [facility] | | | DATE [...] + + + + | BLOOD | [id number] | | [facility] | | | PRODUCT [...] DEPARTMENT OF | [address] | [place] [address] | | | PATHOLOGY | [address] [...] + + + + | PRODUCT | [id number] | | [facility] | | | UNIT [...] + + + + | EXPIRATION | [id number] | | [facility] | | | DATE [...] + + + + | BLOOD | [id number] | | [facility] | | | PRODUCT [...] OF | [address] | [place] [address] | | | PATHOLOGY | [address] | | | + + + + + CBC+DIFF,POC (2015 8:18 AM PST) + + + + + + | Component | Value | Ref Range | Performed | Pathologist | | | | | At | Signature | + + + + + + | WBC POC | 0.3 (L) | 4.4 - 11.0 | [facility] - | | | | | 10*3/uL | [facility] | | | | | | RUTHIE CARTER | | | | | | OF CARE | | | | | | TESTS | | + + + + + + | RBC POC | 2.48 (L) | 4.50 - 6.00 | [facility] - | | | | | [...] [facility] | [address] | [place], [place] | | | RUTHIE CARTER OF CARE | [address] | [address] | | | TESTS | | | [...] [facility] | [address] | [place], [place] | | | [facility]INT OF CARE | [address] | [address] | | | TESTS | | | [...] + + + + + | [facility] | [address] | [place] [address] | | | SERVICES, CORE | WALLY [...] [facility] | [address] | [place] [address] | | | SERVICES, | [address] [...] | + + + + + | [facility] | [address] | [place] [address] | | | SERVICES, | W[address]UR[address] [...]
--- OUTSIDE RECORDS SUMMARY | ~2019-05-17 | XMS | Encounter Summary ---
Demographics + + + | Address | [address] | | | [place] [address] | + + + | Home Phone [...] Providers + +------+ + | Care Sales Attendant Building Materials Name | Role | Phone | + +------+ + | Pending Pcp Addition | PCP | Unavailable | + +------+ + Reason for Visit + + + | Reason | Comments | + + + | Lab Draw | PICC | + + + | Chemotherapy | | + + + | Dressing change | | + + + | Transfusion | | + + + Chemotherapy (Routine) [...] | | Procedures | | [address] | | | | | [place] | | [address] | | | | | [address] | | [address] [place], | | | | | INJECTION, 1 | | [place] | | | | | [place] | | [address] | | | | | [facility] | | Phone: | | | | | INFSN,1 HR | | [phone] | | | | | [place] [facility] | | Fax: | | | | | INFSN,ADDL | | [phone] | | | | | [place] | | | +--------+--------+ + + + + Encounter Details +--------+ + + + + | Date | Type | Department | Care Team | Description | +--------+ + + + + | 07/19/ | Clinical | Center for | | Lab Draw (PICC); | | 2016 | Support | Hematologic | | Chemotherapy; | | | Staff | [facility] | | Dressing change; | | | | [address] | | Transfusion | | | | Debi Burger Mailcode: | | | | | | [id number] | | | | | | [place], | | | | | | [place] [address] | | | | | | [phone] | | | +--------+ + + + [...] + + + | Blood Pressure | 107/59 | 07/19/2015 5:50 PM | | | | | PST | | + + + + + | Pulse | 57 | 07/19/2015 5:50 PM | | | | | PST | | + + + + + | Temperature | 36.8 C (98.2 F) | 07/19/2015 5:50 PM | | | | | PST | | + + + + + | Respiratory Rate | 16 | 07/19/2015 5:50 PM | | | | | PST | | + + + + + | Oxygen Saturation | 98% | 07/19/2015 3:41 PM | | | | | PST | | + + + + + | Inhaled Oxygen | - | - | | | Concentration | | | | + + + + + | Weight | 83.9 kg (184 lb 15.5 | 07/19/2015 3:41 PM | | | | oz) | PST | | + + + + + | Height | - | - | | + + + + + | Body Mass Index | 23.43 | 07/15/2015 1:57 PM | | | | | PST | | + + + + + documented in this encounter Progress Notes Ni Nelson RN - 07/19/2015 7:04 PM PSTReport received from Jessica aRmirez RN. Decitabine completed without complication. PICC line flushed with 10ml Normal Saline. Naper lent blood return noted. Patient verbalized chemotherapy precautions. Patient left ambulating with caregiver. VSS. Patient to RTC D2 C1 Decitabine 07/20/15. Jessica Levy R N - 07/19/2015 3:36 PM PST Patient arrives ambulatory with for lab draw and Day 1 Cycle 1 with Decitibine and pos sible transfusions. 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 Patient reports he is feeling well today. He played a round of golf yesterday (!) and has been resting today. The patient denies colds, flu, fever, infection, nausea, vomiting, diarr hea, constipation, signs or symptoms of anemia, fatigue, neuropathy, mucositis, edema, skin rash, urinary issues, and signs or symptoms of bleeding. The patient reports that he is eating well and drinking at least two liters of fluid daily. Power PICC accessed per protocol. Good blood return noted. Appropriate waste discarded. Labs drawn and sent. Power PICC pulse flushed with 20 mL NS. Lab Results Component Value Date HCT 18.7 07/17/2015 HB 6.8 07/17/2015 Orders to transfuse PRBC product for a [...] ON C Lines & Transfusions doc flowsheet. Dressing Change: Power PICC intact to left upper extremity without erythema or induration. Dressing removed, skin intact. No s/s exit site infection. 2 cm line exposed. Using a PIC C Dressing Change kit and sterile technique, site cleansed with Chloraprep. Skin prep appli ed prior to dressing application. Biopatch applied with SorbaView dressing. Positive press ure valves changed to each port. All lumens pulse flushed with 10 mL NS. Patient tolerated procedure without difficulty. Patient premedicated for chemo with 8 mg PO Zofran. Chemotherapy was checked by 2 RNs. Decitibine was infused per chemotherapy protocol and co mpleted without adverse event. Positive blood return noted pre and post infusion. For infu cricket details, see SEP. Care turned over Ni STEPHEN. 7:0 6 PM PSTdocumented in this encounter Plan of Treatment [...] Rd | | | | | | [place], [place] | | | | | | [address] | | | | | | [phone] | | | | | | | | +--------+---------+ + + + documented as of this encounter Procedures + +--------+ + + + | Procedure Name | Priori | Date/Time | Associated Diagnosis | Comments | | | ty | | | | + +--------+ + + + | TREATMENT PARAMETERS | Routin | 07/19/2015 | Acute myeloid | | | #1 - [facility] | e | 4:09 PM | leukemia (AML), M4 | | | | | PST | ([facility]) | | + +--------+ + + + | PRODUCT - RED CELLS | Routin | 07/19/2015 | Acute myeloid | Results for this | | LEUKOREDUCED | e | 3:56 PM | leukemia (AML), M4 | procedure are in the | | | | PST | ([facility]) | results section. | + +--------+ + + + | CBC AND AUTO DIFF | Urgent | 07/19/2015 | Acute myeloid | Results for this | | | | 3:45 PM | leukemia (AML), M4 | procedure are in the | | | | PST | ([facility]) | results section. | + +--------+ + + + | CBC, WITH | Urgent | 07/19/2015 | Acute myeloid | Results for this | | DIFFERENTIAL | | 3:45 PM | leukemia (AML), M4 | procedure are in the | | | | PST | ([facility]) | results section. | + +--------+ + + + | CMP, POC (BMP+LFT) | Routin | 07/19/2015 | Acute myeloid | Results for this | | | e | 3:34 PM | leukemia (AML), M4 | procedure are in the | | | | PST | ([facility]) | results section. | + +--------+ + + + | LDH TOTAL, PLASMA | Routin | 07/19/2015 | Acute myeloid | Results for this | | | e | 3:23 PM | leukemia (AML), M4 | procedure are in the | | | | PST | ([facility]) | results section. | + +--------+ + + + | TREATMENT PARAMETERS | Routin | 07/19/2015 | 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 | 3:11 PM | leukemia (AML), M4 | | | | | PST | ([facility]) | | + +--------+ + + + | TREATMENT PARAMETERS | Routin | 07/19/2015 | 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 | 3:11 PM | leukemia (AML), M4 | | | | | PST | ([facility]) | | + +--------+ + + + | TREATMENT PARAMETERS | Routin | 07/19/2015 | 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 | 3:11 PM | leukemia (AML), M4 | | | | | PST | ([facility]) | | + +--------+ + + + | TREATMENT PARAMETERS | Routin | 07/19/2015 | 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 | 3:11 PM | leukemia (AML), M4 | | | | | PST | ([facility]) | | + +--------+ + + + | TREATMENT PARAMETERS | Routin | 07/19/2015 | 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 | 3:11 PM | leukemia (AML), M4 | | | | | PST | ([facility]) | | + +--------+ + + + | NURSING | Routin | 07/19/2015 | Acute myeloid | | | COMMUNICATION #3 - | e | 3:11 PM | leukemia (AML), M4 | | | [facility] | | PST | ([facility]) | | + +--------+ + + + | NURSING | Routin | 07/19/2015 | Acute myeloid | | | COMMUNICATION #2 - | e | 3:11 PM | leukemia (AML), M4 | | | [place] | | PST | ([facility]) | | + +--------+ + + + | NURSING | Routin | 07/19/2015 | Acute myeloid | | | COMMUNICATION #1 - | e | 3:11 PM | leukemia (AML), M4 | | | [place] | | PST | ([facility]) | | + +--------+ + + + | TREATMENT PARAMETERS | Routin | 07/19/2015 | Acute myeloid | | | #1 - [place] | e | 3:11 PM | leukemia (AML), M4 | | | | | PST | (HCC) | | + +--------+ + + + | TREATMENT PARAMETERS | Routin | 07/19/2015 | Acute myeloid | | | #1 - [place] | e | 3:11 PM | leukemia (AML), M4 | | | | | PST | ([facility]CC) | | + +--------+ + + + documented in this encounter Results PRODUCT - RED CELLS LEUKOREDUCED (07/19/2015 3:56 PM PST) + + + + [...] + + + + | PRODUCT | [id number] | | [facility] | | | UNIT [...] + + + + | EXPIRATION | [id number] | | [facility] | | | DATE [...] + + + + | BLOOD | [id number] | | [facility] | | | PRODUCT [...] | + + + + + | [facility] | [address] | [place] [address] | | | PATHOLOGY | [address] | | | + + + + + CBC AND AUTO DIFF (07/19/2015 3:45 PM PST) + + + + + + | Component | Value | Ref Range | Performed | Pathologist | | | | | At | Signature | + + + + + + | WHITE CELL | 1.61 (L) | 4.40 - 11.00 | [facility] | | | COUNT | | K/cu mm | LABORATORY | | | | | | SERVICES, | | | | | | CORE | | + + + + + + | RED CELL | 2.49 (L) | 4.50 - 6.00 | [facility] | | | COUNT | | M/cu mm | LABORATORY | | | | | | SERVICES, | | | | | | CORE | | + + + + + + | HEMOGLOBIN | 7.1 (L) | 13.5 - 17.5 | [facility] | | | | | g/dL | LABORATORY | | | | | | SERVICES, | | | | | | CORE | | + + + + + + | HEMATOCRIT | 20.1 (L) | 41.0 - 53.0 % | [...] + + + | RDW SD | 33.8 (L) | 35.1 - 46.3 fL | [...] + + + + | [facility] | 10.7 | 9.7 - 12.3 fL [...] + + + + | NEUTROPHIL | 1.3 (L) | 50.0 - 70.0 % | [facility] | | | % | | | LABORATORY | | | | | | SERVICES, | | | | | | CORE | | + + + + + + | LYMPHOCYTE | 13.0 (L) | 18.0 - 42.0 % | [facility] | | | % | | | LABORATORY | | | | | | SERVICES, | | | | | | CORE | | + + + + + + | MONOCYTE % | 85.7 (H) | 3.5 - 9.0 % | [...] + + + + | NEUTROPHIL | 0.02 (L) | 1.80 - 7.70 | [facility] | | | # | | K/cu mm | LABORATORY | | | | | | SERVICES, | | | | | | CORE | | + + + + + + | LYMPHOCYTE | 0.21 (L) | 1.00 - 4.80 | [facility] | | | # | | K/cu mm | LABORATORY | | | | | | SERVICES, | | | | | | CORE | | + + + + + + | MONOCYTE # | 1.38 (H) | 0.10 - 0.90 | [facility] [...] | + + + + + | [facility] | [address] | [place] [address] | | | SERVICES, CORE | [address] | | | + + + + + CMP PHIL LEONARD (07/19/2015 3:34 PM PST) + +---------+ + + + [...] +---------+ + + + | POTASSIUM, | 4.6 | 3.4 - 5.0 | [facility] - | | | POC | | mmol/L | [facility] | | | | | | [facility] POINT | | | | | | OF CARE | | | | | | TESTS | | + +---------+ + + + | TOTAL CO2, | 30 (H) | 22 - 29 mmol/L | [facility] [...] + + + | AST, CMP | 20 | 0 - 41 U/L | [facility] [...] 6.7 | 6.1 - 7.9 g/dL | [facility] - | | | TOTAL, CMP | [...] [facility] | [address] | [place], [place] | | | [facility] POINT OF CARE | [facility] | [address] | | | TESTS | | | | + + + + + LDH TOTAL, PLASMA (07/19/2015 3:23 PM PST) + +---------+ + + + | Component | Value | Ref Range | Performed | Pathologist | | | | | At | Signature | + +---------+ + + + | LD TOTAL, | 151 | <=250 U/L | [facility] | | [...] | [facility] | [address] | [place] [address] | | | SERVICES, CORE | [address] [...] 42 mg in | New Bag | 07/19/19 | 42 mg | 258.4 | | | NaCl (PF) IV 42 mg (20 mg/m2 | | 16 5:40 | | mL/hr | | | 2.1 m2 Treatment plan recorded | | PM PST | | | | | BSA), intravenous, Administer | | | | | | | over 1 Hours, ONCE, 1 dose, Mon | | | | | | | 07/19/15 at 1615, HIGH RISK | | | | | | | MEDICATION-CHEMOTHERAPY , | | | | | | + +---------+ +-------+--------+------+ +---+---+ | | | +---+---+ + +-------+ +-------+---+---+ | diphenhydrAMINE (BENADRYL) | Given | 07/19/19 | 25 mg | | | | capsule 25 mg 25 mg, oral, EVERY | | 16 4:07 | | | | | 6 HOURS NEEDED, Starting Mon | | PM PST | | | | | 07/19/15 at 1546, Until Tue | | | | | | | 07/20/15 at 0107, allergic | | | | | | | reaction, as needed prior to | | | | | | | transfusion | | | | | | + +-------+ +-------+---+---+ +---+---+ | | | +---+---+ + +-------+ +------+---+---+ | ondansetron (ZOFRAN) tablet 8 | Given | 07/19/19 | 8 mg | | | | mg 8 mg, oral, ONCE, 1 dose, Mon | | 16 4:15 | | | | | 07/19/15 at 1615 | | PM PST | | | | + +-------+ +------+---+---+ +---+---+ | | | +---+---+ documented in this encounter"
--- OUTSIDE RECORDS SUMMARY | ~2019-05-17 | XMS | Encounter Summary ---
Demographics + + + | Address | [address] | | | [place] [address] | + + + | Home Phone [...] Team Providers + +------+ + | Care Grocery Specialist Name | Role | Phone | [...] + + + + | 10/20/ | Telephone | Center for | Em Saunders, | Medication | | 2016 | | Hematologic | PA-C [address] | management | | | | [facility] | [address] | | | | | [address] | [place], [place] | | | | | [place] Mailcode: | [address] | | | | | [facility] | [phone] | | | | | [place], | | | | | | [place] [address] | | | | | | [phone] | | | +--------+ + + + [...] | Visit | Malignancy | [address] | | | | | | [address] | | | | | | [place] | | | | | | [address] | | | | | | [phone] | | | | | | | | +--------+---------+ + + + documented as of this encounter Visit Diagnoses Not on filedocumented in this encounter"
--- OUTSIDE RECORDS SUMMARY | ~2019-05-17 | XMS | Encounter Summary ---
Demographics + + + | Address | [address] | | | [place] [address] | + + + | Home Phone | | + + + | Preferred Language | Unknown | + + + | Marital Status | | + + + | Advent Affiliation | SPI | + + + | Race | White | + + + | Ethnic Group | Not or | + + + Author + + + | Author | [facility] | + + + | Organization | [facility] | + + + | Address | Unknown | + + + | Phone | Unavailable | + + + Support + + +---------+ + | Name | Relationship | Address | Phone | + + +---------+ + | Gabriel Kelly | ECON | Unknown | | + + +---------+ + Care Team Providers + +------+ + | Care Used Equipment Sales Representative Name | Role | Phone | + +------+ + | Zayda Hinton | PCP | | + +------+ + Encounter Details +--------+ + + + + | Date | Type | Department | Care Team | Description | +--------+ + + + + | 03/24/ | Pharmacy | Specialty Pharmacy | | | | 2015 | Visit | Services [address] | | | | | | [address] | | | | | | [place], [place] | | | | | | [address] | | | | | | [phone] | | | +--------+ + + + [...] Rd | | | | | | [place], [place] | | | | | | [address] | | | | | | [phone] | | | | | | | | +--------+---------+ + + + documented as of this encounter Visit Diagnoses Not on filedocumented in this encounter"
--- OUTSIDE RECORDS SUMMARY | ~2019-05-17 | XMS | Encounter Summary ---
Demographics + + + | Address | [address] | | | [place] [address] | + + + | Home Phone [...] Team Providers + +------+ + | Care Elevator Constructor Hydraulic Name | Role | Phone | + +------+ + | Pending Pcp Addition | PCP | Unavailable | + +------+ + Reason for Visit + + + | Reason | Comments | + + + | Lab Draw | PICC | + + + | Chemotherapy | | + + + | Transfusion [...] [address] | | | | | [place] | | [address] | | | | | [address] | | [address], | | | | | INJECTION, [address] | | [place] | | | | | [place] | | [address] | | | | | [facility] | | Phone: | | | | | INFSN,1 HR | | [phone] | | | | | [place] [facility] | | Fax: | | | | | INFSN,ADDL | | [phone] | | | | | [place] | | | +--------+--------+ + + + + Encounter Details +--------+ + + + + | Date | Type | Department | Care Team | Description | +--------+ + + + + | 07/28/ | Clinical | Center for | | Lab Draw (PICC); | | 2015 | Support | Hematologic | | Chemotherapy; | | | Staff | [facility] | | Transfusion | | | | [address] | | | | | | [place] Mailcode: | | | | | | [address] | | | | | | [place], | | | | | | [place] [address] | | | | | | [phone] | | | +--------+ + + + [...] + + + | Blood Pressure | 122/61 | 07/28/2015 4:12 PM | | | | | PST | | + + + + + | Pulse | 74 | 07/28/2015 4:12 PM | | | | | PST | | + + + + + | Temperature | 36.8 C (98.2 F) | 07/28/2015 4:12 PM | | | | | PST | | + + + + + | Respiratory Rate | 16 | 07/28/2015 4:12 PM | | | | | PST [...] encounter Progress Notes Jessica Ramirez, RN - 07/28/2015 2:16 PM PSTFormatting of this note might be different f rom the original. Patient arrrives ambulatory with for Day 10 Cycle 1 with Decitibine. 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 He will transfused with platelets today per yesterday's labs. Patient reports he is feeling well today. He has energy despite HCT yesterday of 22.1. He c/o over-all "sluggish" pain from back to teeth and rates as 3-4/10. The patient denies col ds, flu, fever, infection, nausea, vomiting, diarrhea, constipation, signs or symptoms of an emia, edema, skin rash, urinary issues, and signs or symptoms of bleeding. The patient reports that he is eating well and drinking at least two liters of fluid daily. PICC with positive BR. Appointment with Aspen VILLALBA. Lab Results Component Value Date PLT 10 07/27/2015 Orders to transfuse platelet product for a [...] barrera ONC Lines & Transfusions doc flowsheet. Premedicated for chemo with 8 mg PO Zofran. Chemotherapy was checked by 2 RNs. Decititbine was infused per chemotherapy protocol and c ompleted without adverse event. Positive blood return noted pre and post infusion. For inf usion details, see MAR. Type and screen sent in anticipation of patient needing blood on Sunday. Patient left ambul atory with driving. He will RTC Sunday for labs and possible blood products.Electronic ally signed by Jessica Ramirez RN at 07/28/2015 4:48 PM PSTdocumented in this encounter Plan of [...] 2018 | Visit | Malignancy | [address] [facility] | | | | | | [address] | | | | | | [place], [place] | | | | | | [address] | | | | | | [phone] | | | | | | | | +--------+---------+ + + + documented as of this encounter Procedures + +--------+ + + + | Procedure Name | Priori | Date/Time | Associated Diagnosis | Comments | | | ty | | | | + +--------+ + + + | ANTIBODY SCREEN | Routin | 07/28/2015 | Acute myeloid | Results for this | | | e | 3:08 PM | leukemia (AML), M4 | procedure are in the | | | | PST | ([facility]) | results section. | + +--------+ + + + | TYPE AND SCREEN | Routin | 07/28/2015 | Acute myeloid | Results for this | | | e | 3:08 PM | leukemia (AML), M4 | procedure are in the | | | | PST | ([facility]) | results section. | + +--------+ + + + | ABO & RH TYPE | Routin | 07/28/2015 | Acute myeloid | Results for this | | | e | 3:08 PM | leukemia (AML), M4 | procedure are in the | | | | PST | ([facility]) | results section. | + +--------+ + + + | TREATMENT PARAMETERS | Routin | 07/28/2015 | 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 | 1:51 PM | leukemia (AML), M4 | | | | | PST | ([facility]) | | + +--------+ + + + | TREATMENT PARAMETERS | Routin | 07/28/2015 | 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 | 1:51 PM | leukemia (AML), M4 | | | | | PST | ([facility]) | | + +--------+ + + + | TREATMENT PARAMETERS | Routin | 07/28/2015 | 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 | 1:51 PM | leukemia (AML), M4 | | | | | PST | ([facility]) | | + +--------+ + + + | TREATMENT PARAMETERS | Routin | 07/28/2015 | 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 | 1:51 PM | leukemia (AML), M4 | | | | | PST | ([facility]) | | + +--------+ + + + | TREATMENT PARAMETERS | Routin | 07/28/2015 | 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 | 1:51 PM | leukemia (AML), M4 | | | | | PST | ([facility]) | | + +--------+ + + + | NURSING | Routin | 07/28/2015 | Acute myeloid | | | COMMUNICATION #3 - | e | 1:51 PM | leukemia (AML), M4 | | | [facility] | | PST | ([facility]) | | + +--------+ + + + | NURSING | Routin | 07/28/2015 | Acute myeloid | | | COMMUNICATION #2 - | e | 1:51 PM | leukemia (AML), M4 | | | [facility] | | PST | ([facility]) | | + +--------+ + + + | NURSING | Routin | 07/28/2015 | Acute myeloid | | | COMMUNICATION #1 - | e | 1:51 PM | leukemia (AML), M4 | | | [facility] | | PST | ([facility]) | | + +--------+ + + + | TREATMENT PARAMETERS | Routin | 07/28/2015 | Acute myeloid | | | #1 - [place] | e | 1:51 PM | leukemia (AML), M4 | | | | | PST | ([facility]) | | + +--------+ + + + | TREATMENT PARAMETERS | Routin | 07/28/2015 | Acute myeloid | | | #1 - [place] | e | 1:51 PM | leukemia (AML), M4 | | | | | PST | ([facility]) | | + +--------+ + + + documented in this encounter Results ANTIBODY SCREEN (07/28/2015 3:08 PM PST) + + + + + [...] [facility] | [address] | [place] [address] | | | SERVICES, | [address] | | | | TRANSFUSION MEDICINE | | | | + + + + + ABO & RH TYPE (07/28/2015 3:08 PM PST) + + + + + [...] | + + + + + | [facility] | [address] | [place] [address] | | | SERVICES, | [address] [...] 42 mg in | New Bag | 07/28/19 | 42 mg | 258.4 | PICC | | NaCl (PF) IV 42 mg (20 mg/m2 | | 16 3:25 | | mL/hr | | | 2.1 m2 Treatment plan recorded | | PM PST | | | | | BSA), intravenous, Administer | | | | | | | over 1 Hours, ONCE, 1 dose, Wed | | | | | | | 07/28/15 at 1415, HIGH RISK | | | | | | | MEDICATION-CHEMOTHERAPY , | | | | | | + +---------+ +-------+--------+------+ +---+---+ | | | +---+---+ + +-------+ +-------+---+---+ | diphenhydrAMINE (BENADRYL) | Given | 07/28/19 | 25 mg | | | | capsule 25 mg 25 mg, oral, EVERY | | 16 2:04 | | | | | 6 HOURS NEEDED, Starting Wed | | PM PST | | | | | 07/28/15 at 1403, Until Wed | | | | | | | 07/28/15 at 2248, allergic | | | | | | | reaction, as needed prior to | | | | | | | transfusion | | | | | | + +-------+ +-------+---+---+ +---+---+ | | | +---+---+ + +-------+ +------+---+---+ | ondansetron (ZOFRAN) tablet 8 | Given | 07/28/19 | 8 mg | | | | mg 8 mg, oral, ONCE, 1 dose, Wed | | 16 2:04 | | | | | 07/28/15 at 1415 | | PM PST | | | | + +-------+ +------+---+---+ +---+---+ | | | +---+---+ documented in this encounter
--- OUTSIDE RECORDS SUMMARY | ~2019-05-17 | XMS | Encounter Summary ---
Demographics + + + | Address | [address] | | | [place] [address] | + + + | Home Phone [...] Team Providers + +------+ + | Care Care Center Manager Name | Role | Phone [...] | | | | | remission | [address] | [facility] | | | | | | Phone: | [facility] | | | | | Procedures | [phone] | [place], [place] | | | | | Post BMT | Fax: | [address] | | | | | Auth to | [phone] | Phone: | | | | | included | | [phone] | | | | | facility, | | Fax: | | | | | diagnostics, | | [phone] | | | | | office | [...] | remission (HCC) | | | | [facility] | [place], [place] | | | | | [address] | [address] | | | | | [address] Mailcode: | [phone] | | | | | [facility] | | | | | | [facility]ilion [place], | | | | | | [place] [address] | | | | | | [phone] | | | +--------+---------+ + + + [...] ), please call the Triage nurse at [phone]. 3. Because you received sedating medication morphine), [...] [facility] AT [address] Mailcode: [place] [address] documented in this enc ounter [...] | Visit | Malignancy | [address] [facility] | | | | | | [address] | | | | | | [place], [place] | | | | | | [address] | | | | | | [phone] | | | | | | | | +--------+---------+ + + + documented as of this encounter Procedures + +--------+ + + + | Procedure Name | Priori | Date/Time | Associated Diagnosis | Comments | | | ty | | | | + +--------+ + + + | WA BONE MARROW ASP | Routin | 08/31/2016 | Acute | | | SAME DAY BIOPSY | e | 10:35 AM | myelomonocytic | | | | | PST | leukemia in | | | | | | remission (HCC) | | + +--------+ + + + | WA BONE MARROW BX, | Routin | 08/31/2016 [...] | Test performed by immunoassay using [employer] Completion Manager i2000. | [facility] | | Therapeutic range [...] | + + + + + | [facility] | [address] | [place] [address] | | | SERVICES, SPECIAL | PARK [...] | + + + + + | [facility] | [address] | [place] [address] | | | SERVICES, SPECIAL | PARK [...] + + + + | SHAN | [address] , | [place] [address] | | | DIAGNOSTIC | [address] [...] SHAN | [address] | [place], [place] | | | DIAGNOSTIC | SUITE [...] [facility] | [address] | [place], [place] | | | DIAGNOSTIC | SUITE [...] | | | | | CD4, CD8, GI4uguj,CD19, | | | | | | CD25, [...] 55-85% | | | | | | 700-0757PL2+ CD4+ | | | | | | 28.5 | | | | | | 420.3 28-57% | | | | | | 300-6403VQ1+ CD8+ | | | | | | [...] | | | | | | | %LymphsCD3+CD4+JV3idlz | | | | | | + 0.2 | | | | | | | | | | | | <1.5%CD3+HLA-DR+ | | | | | | 2.4 | | | | | | | | | | | | <10%CD4+CD25+ | | | | | | 7.8 | | | | | | | | | | | | <7%PT9zsbj+CD69+ | | | | | | 0.5 [...] | + + + + + | [facility] | [address] | [place] [address] | | | PATHOLOGY | [address] [...] | | | | | CD56, CD117, efbYV856 | | | | | | ([id number]), status | | | | | | [...] Myeloid | | | | | | .5%, | | | | | | erythroid [...] | | | | | | CD10 NW99gRW20 CD14 | | | | | | CD15 CD16 CD19 CD20 CD33 | | | | | | [id number] CD45 CD56 CD58 | | | | | | CD64 CD71 CD117 | | | | | | [id number] sLambda | | | | | | [...] Agency | | | | | | [facility] | | | | | [...] | + + + + + | [facility] | [address] | [place] [address] | | | PATHOLOGY | [address] | | | + + + + + [facility] AML/MDS GENE MUTATION PANEL, BM (PP) (08/31/2016) + + + + + + | Component | Value | Ref Range | Performed | Pathologist | | | | | At | Signature | + + + + + + | [facility] | A [facility] AML/MDS | | [facility] | | | AML/MDS | Gene Mutation [...] Gene: | | | | | | [id number]: | | | | | | p.S185I [...] Ion | | | | | | [employer] PGM. The | | | | | [...] and | | | | | | [place] sequencing are | | | | | [...] supplementary | | | | | | plx-unwmqypean-fnwbn | | | | | | assay [...] | | | | | | IL7R KTMK1400.1 | | | | | | c.554G>T hg19 chr5 | | | | | | [id number] G | | | | | | [...] # | | | | | | [id number]. It has not | | | | [...] | | | | | | [facility] | | | | | | DiagnosticsLaboratories | | | | | | are fully licensed by | | | | | | the state of [place] | | | | | | under CLIA and | | | | | | areaccredited by [place] | | | | | | of [place] | | | | | | Pathologists [...] + + + | SHAN | [address] | [place] [address] | | | DIAGNOSTIC | [address] [...] clinical | | | | | | fish smoker. | | | | | | Rendering [...] + + + + | SHAN | [address], | [place] [address] | | | DIAGNOSTIC | [address] [...] NMDP | | | | | | [id number] | | | | | | indications: [...] | | | | | | STRloci [id number], [id number], | | | | | | N8E083, CSF1PO, | | | | | | F2J1002, THO1, W92Q660, | | | | | | [id number],[id number], | | | | | | W93U650, vWA, TPOX, | | | | | | D18S51, L0Z008, FGA and | | | | | [...] | | | | | | The [facility] | | | | | | DiagnosticsLaboratories | | | | | | are fully licensed by | | | | | | the state of [place] | | | | | | under CLIA and | | | | | | areaccredited by [place] | | | | | | of [place] | | | | | | Pathologists [...] + + + | SHAN | [address] | [place] [address] | | | DIAGNOSTIC | [address] | | | | LABORATORIES | | | | + + + + + documented in this encounter Visit Diagnoses + + | Diagnosis | + + | 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
--- OUTSIDE RECORDS SUMMARY | ~2019-05-17 | XMS | Encounter Summary ---
Demographics + + + | Address | [address] | | | [place] [address] | + + + | Home Phone [...] Team Providers + +------+ + | Care Healthcare Manager Name | Role | Phone | + +------+ + | No Pcp Per Patient | PCP | Unavailable | + +------+ + Reason for Visit + + + | Reason | Comments | + + + | Medication | IST: Tacrolimus | | Adjustment | | + + + Encounter Details +--------+ + + + + | Date | Type | Department | Care Team | Description | +--------+ + + + + | 11/02/ | Telephone | Center for | Yari Garcia MD | Medication | | 2017 | | Hematologic | [address] | Adjustment (IST: | | | | Malignancies at | [address] | Tacrolimus) | | | | [facility] | [place], [place] | | | | | [address] [facility] | [address] | | | | | [facility] Mailcode: | [phone] | | | | | [facility] [place] | | | | | | [facility] [place], | | | | | | [place] [address] | | | | | | [phone] | | | +--------+ + + + [...] Rd | | | | | | [place] | | | | | | [address] | | | | | | [phone] | | | | | | | | +--------+---------+ + + + documented as of this encounter Visit Diagnoses Not on filedocumented in this encounter"
--- OUTSIDE RECORDS SUMMARY | ~2019-05-17 | XMS | Encounter Summary ---
Demographics + + + | Address | [address] | | | [place] [address] | + + + | Home Phone [...] Team Providers + +------+ + | Care Music Executive Name | Role | Phone | + [...] | | | | | | [place], | | | | | | [place] [address] | | | | | | [phone] | | | +--------+ + + + [...] | 05/19/ | Office | Hematology | aYri Garcia MD | | | 2019 | Visit | Malignancy | [address] [facility] | | | | | | [address] | | | | | | [place], [place] | | | | | | [address] | | | | | | [phone] | | | | | | | [...]
--- OUTSIDE RECORDS SUMMARY | ~2019-05-17 | XMS | Encounter Summary ---
Demographics + + + | Address | [address] | | | [place] [address] | + + + | Home Phone [...] + +------+ + | Care Human Resources Benefits Assistant Name | Role | Phone | [...] Description | +--------+--------+ + + + | 05/02/ | Refill | Center for | Aspen Cummins FNP | Refill Request | | 2017 | | Hematologic | [address] | | | | | Malignancies at | [address] | | | | | [address] | [place], [place] | | | | | [address] | [address] | | | | | [address] Mailcode: | [phone] | | | | | [facility] | | | | | | [place], | | | | | | [place] [address] | | | | | | [phone] | | | +--------+--------+ + + + [...] | | | | | | [place] | | | | | | [address] | | | | | | [phone] | | | | | | | | +--------+---------+ + + + documented as of this encounter Visit Diagnoses Not on filedocumented in this encounter"
--- OUTSIDE RECORDS SUMMARY | ~2019-05-17 | XMS | Encounter Summary ---
Demographics + + + | Address | [address] | | | [place] [address] | + + + | Home Phone [...] Team Providers + +------+ + | Care Ribbon Blocker Name | Role | Phone | + +------+ + | Pending Pcp Addition | PCP | Unavailable | + +------+ + Reason for Visit + + + | Reason | Comments | + + + | Medication | No change to TAC dose | | management | | + + + Encounter Details +--------+ + + + + | Date | Type | Department | Care Team | Description | +--------+ + + + + | 09/20/ | Telephone | Center for | Em Saunders, | Medication | | 2016 | | Hematologic | PA-C [address] [facility] | management (No | | | | Malignancies at [facility] | [address] | change to TAC dose) | | | | [address] | [place], [place] | | | | | [address] Mailcode: | [address] | | | | | [facility] [place] | [phone] | | | | | [place], | | | | | | [place] [address] | | | | | | [phone] | | | +--------+ + + + [...] [place] | | | | | | [address] | | | | | | [phone] | | | | | | | | +--------+---------+ + + + documented as of this encounter Visit Diagnoses Not on filedocumented in this encounter"
--- OUTSIDE RECORDS SUMMARY | ~2019-05-17 | XMS | Encounter Summary ---
Demographics + + + | Address | [address] | | | [place] [address] | + + + | Home Phone [...] Providers + +------+ + | Care Research Management Associate Name | Role | Phone | + [...] + + + + | 12/07/ | Telephone | Center for | Yari Garcia MD | Medication | | 2017 | | Hematologic | [address] | Adjustment (IST Tac) | | | | Malignancies at | [address] | | | | | [address] | [place], [place] | | | | | [address] | [address] | | | | | [address] Mailcode: | [phone] | | | | | [facility] | | | | | | [place], | | | | | | [place] [address] | | | | | | [phone] | | | +--------+ + + + [...] Rd | | | | | | [place], [place] | | | | | | [address] | | | | | | [phone] | | | | | | | | +--------+---------+ + + + documented as of this encounter Visit Diagnoses Not on filedocumented in this encounter"
--- OUTSIDE RECORDS SUMMARY | ~2019-05-17 | XMS | Encounter Summary ---
Demographics + + + | Address | [address] | | | [place] [address] | + + + | Home Phone [...] Team Providers + +------+ + | Care Tube Repairer Name | Role | Phone | [...] | | | | ic leukemia, | [address] | [address] | | | | | not having | [address] | Mailcode: | | | | | achieved | [facility], [place], [place] | [facility] | | | | | remission | [address] | [facility] | | | | | | Phone: | Pavilion | | | | | Procedures | [phone] | [place], [place] | | | | | Post BMT | Fax: | [address] | | | | | Auth to | [phone] | Phone: | | | | | included | | [phone] | | | | | facility, | | Fax: | | | | | diagnostics, | | [phone] | | | | | office | | | | | | | visits and | | | | | | | surgery | | | +--------+---------+ + + + + Encounter Details +--------+---------+ + + + | Date | Type | Department | Care Team | Description | +--------+---------+ + + + | 10/17/ | Office | Center for | Saunders, Em L, | Acute myeloid | | 2016 | Visit | Hematologic | PA-C [address] [facility] | leukemia (AML), M4 | | | | Malignancies at | [address] | ([facility])- primary | | | | [facility] | [place], [place] | induction failure | | | | [address] [facility] | [address] | (Primary Dx); S/P | | | | [address] Mailcode: | [phone] | allogeneic bone | | | | [facility] [place] | | marrow transplant | | | | [facility] [place], | | ([facility]) | | | | [place] [address] | | | | | | [phone] | | | +--------+---------+ + + + [...] + + + | Blood Pressure | 114/71 | 10/18/2015 10:08 AM | | | | | PDT | | + + + + + | Pulse | 76 | 10/18/2015 10:08 AM | | | | | PDT | | + + + + + | Temperature | 36.6 C (97.8 F) | 10/18/2015 10:08 AM | | | | | PDT | | + + + + + | Respiratory Rate | 16 | 10/18/2015 10:08 AM | | | | | PDT | | + + + + + | Oxygen Saturation | 97% | 10/18/2015 10:08 AM | | | | | PDT | | + + + + + | Inhaled Oxygen | - | - | | | Concentration | | | | + + + + + | Weight | 79.6 kg (175 lb 7.8 | 10/18/2015 10:08 AM | | | | oz) | PDT | | + + + + + | Height | - | - | | + + + + + | Body Mass Index | 22.68 | 08/18/2015 4:35 PM | | | | | PST | | + + + + + documented in this encounter Patient Instructions Patient Instructions Em Saunders PA-C - 10/18/2015 8:26 AM PDT-Take your temperature regularly (3-4 x daily) and to call immediately for a temperature of 100.4 or greater. -We'll call you to adjust your Tacrolimus if necessary. -Start using the triamcinolone 0.1% cream three times daily to the rash on your chest, abdo men, flanks, and bilateral arms. If you notice the rash in any new areas or the rash worsens , please call the clinic to notify us of this change. -Continue to avoid dairy products at this time. -Continue to hold the beclomethasone and budesonide. Please call if you develop any new abd ominal pain. -Consider taking Zofran as needed for nausea. documented in this encounter Progress Notes Em Saunders PA-C - 10/18/2015 8:27 AM PDTFormatting of this note might be different f rom the original. 10/18/2015 [facility] Physician: Yari Garcia MD Local Oncologist: Yari Garcia MD PCP: Pending Pcp ADDITION Hematologic Malignancy: Primary refractory AML Conditioning regimen: tBuCy Date of transplant: 08/27/2015 (two day 0s) Donor: MM URD (DPB1 permissive antigen mismatch, male, [id number]) Hematologic History: Khurram Kelly is a 25 [...] his L ankle. He was evaluated at [facility] on 06/[address] angiogram negative [...] leukemia. He was referred to [facility] for further evaluation and man agement of his newly dx'd AML. Pt was admitted to [facility] on 05/26/15. Peripheral blood was [...] CD34, variable CD56, variable CD117, and dim GX137-nxmgn mickey; promonocyte immunophenotype (70% by flow): CD11b, [...] of primary refractory AML, currently d ay +52, s/p tBuCy conditioned MM URD SCT. Interval History: presents to clinic today for his routine scheduled visit. He is accompanied by his who is his caregiver in clinic today. His knees are still sore from activity, bu t not worse. His knees are actually better and the pain is hardly there during our clinic vi sit. He is planning to continue activity, but will do more walking on flat surfaces instead of going on a hike. His stomach remains improved since holding the B&B. He did have one day were he had a little GI upset, but he did eat a little dairy just before that. He has since been avoiding dairy and instead using almond milk with his cereal and his stomach feels good with no GI upset. His stools are hard/formed, but he denies constipation. He denies n/v, bu t continues to use Zofran once in the morning. He has a great appetite and is eating a lot. He is taking in at least 2 liters of fluids daily. He denies fever. He denies rash, but tabatha ng the physical exam there is a rash present, which he is surprised about since he did not h ave one yesterday. This rash must have just started. He was even showing off his skin yester day to family since his rash was still gone at that time. Review of Systems: General: Denies fevers, chills, weight loss or sweats. ENT: Denies changes in vision or double vision. Denies hearing loss, nosebleeds, nasal vinny estion, difficulty swallowing, hoarseness or sore throat. Respiratory: Denies shortness of breath, coughing up blood, excessive sputum, cough, chest discomfort or wheezing. Musculoskeletal: +bilateral knee pain (2/10 pain scale) from activity No swelling, stiffnes s, back pain, arthritis, muscle aches or muscle [...] MG TABLET Take 20 mg (two tablets) by mouth once daily. PROCHLORPERAZINE MALEATE 5 [...] e 1 mg capsule) in the evening. [place] 0.5 mg capsules for future use. TACROLIMUS 1 MG CAPSULE Take 1 mg (one 1 mg capsule) by mouth in the morning and 1 mg (one 1 mg capsule) in the evening. [place] 0.5 mg capsules for future use. TRIAMCINOLONE ACETONIDE 0.1 % TOPICAL CREAM Apply to affected area three times daily. Apply thin film to affected areas. SULFAMETHOXAZOLE 800 MG-TRIMETHOPRIM 160 MG TABLET Take 1 tablet by mouth twice daily (ever y Sunday and ). Vitals: BP 114/71 | Pulse 76 | Temp (Src) 36.6 C (97.8 F) (Oral) | RR 16 | Wt 79.6 kg (175 lb 7 .8 oz) | SpO2 97% | BMI 22.69 kg/(m^2) Pre-transplant weight 165 pounds Physical Exam: General: This is a male in no acute distress, sitting up in chair. HEENT: Sclerae anicteric. Mucosa pink and moist without erythema or exudate. Skin: Faint patchy erythematous rash to lower chest, abdomen, flanks, and scattered over bi lateral forearms. Rash ~25% BSA Chest: Lungs clear to auscultation bilat. Normal effort. CV: RRR, no murmurs. Abdomen: S/NT/ND with NABS. No HSM appreciated. Extremities: Pulses strong and equal bilaterally. No c/c/e. Neuro: Alert and oriented x 3. Grossly nonfocal exam. CVC: Central line is a Neostar catheter w/o induration or inflammation. Laboratory Results: CBC with diff: Last 72 hours (or 3 results) Recent Labs 10/18/15 1031 WBC 6.2 HB 11.1* HCT 33.4* PLT 115* MONOPERC 10.4* BASOPERC 0.3 EOSPERC 7.3* Chemistries: Last 72 Hours (or 3 results): Recent Labs 09/10/15 2300 09/11/15 2313 09/12/15 2326 10/07/15 1015 10/11/15 1021 10/11/15 1046 10/14/15 1052 10/14/15 1103 10/18/15 1033 NA 144 143 142 < > -- < > -- 141 -- 137 141 K 3.7 3.9 3.9 < > -- < > -- 4.1 -- 4.3 4.2 CL 113* 109* 109* < > -- < > -- 103 -- 102 103 BICARB 21 25 25 < > -- < > -- 25 -- 28 27 BUN 22* 19 18 < > -- < > -- 15 -- 16 16 CR 0.91 0.94 0.96 < > -- < > -- 0.7 -- 0.6* 0.8 GLU 90 95 121* < > -- < > -- 104* -- 125* 90 CA 8.1* 8.0* 8.3* < > -- < > -- 9.4 -- 9.3 9.4 AST 18 22 19 < > 25 -- 22 -- 40 -- -- ALT 28 31 35 < > 87* -- 68* -- 132* -- -- AP 63 83 96 < > 66 -- 59 -- 57 -- -- TBILI 0.5 0.5 0.4 < > 0.3 -- 0.3 -- 0.2* -- -- TP 5.8* 6.1* 6.1* < > 6.7 -- 6.7 -- 6.4 -- -- ALB 2.7* 2.9* 3.0* < > 3.9 -- 3.8 -- 3.6 -- -- ANIONGAP 10 9 8 -- [...] 5.96 x 10^6 per kg -BMT Day: +52 Pertinent Diagnostics: -Around day + 30 repeat [...] origin). CBC reviewed and reveals anemia and thrombocytopenia. Platelets now dropping, which could b e related to GvHD versus Bactrim (started 1 weeks ago, although seems quicker than expected to be related to Bactrim). -Around day + 60, we will return [...] eruption of lymphocyte recovery and early mild pqvqv-wywwup-jaov disease. On 09/13, rash in volved ~15% BSA. Patient with progression of rash to chest, abd, back, upper arms bilat, thi ghs bilat (front and back); ~56% BSA at wrost on 09/14. Rash had resolved starting 10/06 clinic visit. Rash now re-appeared on 10/17 clinic visit: Faint patchy erythematous rash to lower c hest, abdomen, flanks, and scattered over bilateral forearms. Rash ~25% BSA -Triamcinolone cream 0.1% TID to rash -Prednisone [...] long as GvHD skin remains improved. -Prednisone 20 mg once daily as of 10/13. Next taper planned 10/21/15 if rash continues to i mprove. 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 With patients high risk for relapse and known GvHD skin, e mpiric treatment was started with B&B. After patient removed dairy from his diet his symptom s have resolved. -Beclomethasone 1 mL suspension four times daily [...] emesis randomly. Improved with Zofran. -Zofran PRN Constipation: suspect due to combination of Zofran [...] 10/21/15 if rash continues to imp rove. -Restart the triamcinolone cream 0.1% to GvHD rash that has reappeared as of today clinic v isit. -continue to HOLD the beclomethasone and budesonide. He is instructed to restart the medica tions if he were to develop any new stomach upset similar to before. He is also to call the clinic to notify us that he has restart the medications. -Continue to have patient avoid dairy at this time. -Zofran now PRN and not scheduled BID -Return to clinic 10/21/15 to see me, sooner prn. Em Saunders PA-C [facility] [address] [facility] Mailcode: [place] [address] documented in this encounter Plan [...] | Visit | Malignancy | [address] [facility] | | | | | | [facility] | | | | | | [place], [place] | | | | | | [address] | | | | | | [phone] | | | | | | | | +--------+---------+ + + + documented as of this encounter Results BMP + MAG POC CHM (10/21/2015 10:58 AM PDT) + +---------+ + + + [...] + | GLUCOSE, | 118 (H) | 60 - 99 mg/dL | [...] + + + | LDH, POC | 296 (H) | 0 - 206 U/L | [...] + + + | [facility] SORTO | [address] | [place], [place] | | | RUTHIE CARTER OF [facility] | [address] | [address] | | | TESTS | | | | + + + + + CBC+PHIL GRIJALVA (10/21/2015 10:40 AM PDT) + + + + + + | Component | Value | Ref Range | Performed | Pathologist | | | | | At | Signature | + + + + + + | WBC POC | 7.0 | 4.4 - 11.0 | [facility] - [...] + + + | HGB POC | 11.6 (L) | 13.5 - 17.5 | [facility] [...] + + + | MCV POC | 98.0 (H) | 80.0 - 96.0 fL | [...] + + | RDW SD, POC | 62.6 (H) | 35.1 - 46.3 fL | [...] + + + + | NEUTROPHIL% | 74.0 (H) | 50.0 - 70.0 % | [facility] - | | | POC | | | [place] | | | | | | [facility], POINT | | | | | | OF CARE | | | | | | TESTS | | + + + + + + | LYMPH% POC | 15.3 (L) | 18 - 42 % | [facility] - | | | | | | [place] | | | | | | [facility] POINT | | | | | | OF CARE | | | | | | TESTS | | + + + + + + | MONO %, POC | 6.3 | 3.5 - 9.0 % | [facility] - | | | | | | [place] | | | | | | [facility] POINT | | | | | | OF CARE | | | | | | TESTS | | + + + + + + | EOS %, POC | 4.0 (H) | 1.0 - 3.0 % | [...] + + + + | NEUTROPHIL# | 5.2 | 1.8 - 7.7 | [facility] - [...] + + + | [facility] S[facility] | [address] | [place], [place] | | | RUTHIE CARTER OF [place] | [address] | [address] | | | TESTS | | | | + + + + + TACROLIMUS, WHOLE BLOOD (10/21/2015 10:35 AM PDT) + +-------+ + + + | Component | Value | Ref Range | Performed | Pathologist | | | | | At | Signature | + +-------+ + + + | TACROLIMUS | 9.5 | 5.0 - 15.0 | [facility] | [...] + + + + | [facility] | [address] | [place] [address] | | | SERVICES, SPECIAL | [address] | | | | IMM + COAG | | | | + + + + + PHOSPHORUS, PLASMA (10/21/2015 10:35 AM PDT) + +-------+ + + + | Component | Value | Ref Range | Performed | Pathologist | | | | | At | Signature | + +-------+ + + + | PHOSPHORUS, | 3.8 | 2.4 - 4.7 mg/dL | [facility] [...] + + | [facility] | [address] [facility] | [place] [address] | | | SERVICES, CORE | [address] | | | + + + + + LIVER SET (AST,ALT,BILI TOTAL,BILI DIRECT,ALK PHOS,ALB,PROT TOTAL) (10/21/2015 10:35 AM PDT ) + +---------+ + + [...] + + + | ALK PHOS | 81 | 53 - 128 U/L | [facility] | | | | | | LABORATORY | | | | | | SERVICES, | | | | | | CORE | | + +---------+ + + + | AST(SGOT) | 133 (H) | <=41 U/L | [facility] | | | | | | LABORATORY | | | | | | SERVICES, | | | | | | CORE | | + +---------+ + + + | ALT (SGPT) | 277 (H) | <=60 U/L | [facility] | | | | | | LABORATORY | | | | | | SERVICES, | | | | | | CORE | | + +---------+ + + + | TOTAL | 6.6 | 6.4 - 8.2 g/dL | [facility] [...] YESSICA LOZA | [address] | [place] [address] | | | SERVICES, CORE | [facility] [...]
--- OUTSIDE RECORDS SUMMARY | ~2019-05-17 | XMS | Encounter Summary ---
Demographics + + + | Address | [address] | | | [place] [address] | + + + | Home Phone | | + + + | Preferred Language | Unknown | + + + | Marital Status | | + + + | Taoism Affiliation | SPI | + + + [...] Team Providers + +------+ + | Care Veneer Clipper Helper Name | Role | Phone | + +------+ + | Pending Pcp Addition | PCP | Unavailable | + +------+ + Encounter Details +--------+ + + + + | Date | Type | Department | Care Team | Description | +--------+ + + + + | 08/04/ | Hospital | UNLRELATED BMT | | | | 2015 | Encounter | PROGRAM [address] | | | | | | [address] | | | | | | [place], [place] | | | | | | [address] | | | +--------+ + + + [...] 2018 | Visit | Malignancy | [address] [facility] | | | | | | [address] | | | | | | [place], [place] | | | | | | [address] | | | | | | [phone] | | | | | | | | +--------+---------+ + + + documented as of this encounter Visit Diagnoses Not on filedocumented in this encounter"
--- OUTSIDE RECORDS SUMMARY | ~2019-05-17 | XMS | Encounter Summary ---
Demographics + + + | Address | [address] | | | [place] [address] | + + + | Home Phone [...] Team Providers + +------+ + | Care Ranch Hand Supervisor Name | Role | Phone | [...] | | | | | | [place], | | | | | | | [place] | | | | | | | [address] | | | | | | | Phone: | | | | | | | [phone] | | | | | | | Fax: | | | | | | | [phone] | +--------+--------+ + + + + Encounter [...] (HCC) (Primary Dx) | | | | [facility] | [place], [place] | | | | | [address] | [address] | | | | | [address] Mailcode: | [phone] | | | | | [facility] | | | | | | [place], | | | | | | [place] [address] | | | | | | [phone] | | | +--------+---------+ + + + [...] + + + | Blood Pressure | 135/81 | 04/19/2016 1:57 PM | | | | | PDT | | + + + + + | Pulse | 87 | 04/19/2016 1:57 PM | | | | | PDT | | + + + + + | Temperature | 37.1 C (98.7 F) | 04/19/2016 1:57 PM | | | | | PDT | | + + + + + | Respiratory Rate | 16 | 04/19/2016 1:57 PM | | | | | PDT | | + + + + + | Oxygen Saturation | 98% | 04/19/2016 1:57 PM | | | | | PDT | | + + + + + | Inhaled Oxygen | - | - | | | Concentration | | | | + + + + + | Weight | 92.5 kg (203 lb 14.8 | 04/19/2016 1:57 PM | | | | oz) | PDT | | + + + + + | Height | - | - | | + + + + + | Body Mass Index | 25.9 | 01/25/2016 8:24 AM | | | | | PDT | | + + + + + documented in this encounter Progress Notes Aspen Cummins FNP - 04/19/2016 8:31 AM PDT 04/19/2016 [facility] MD: Yari Garcia MD Primary Oncologist: Yari Garcia MD Diagnosis: AMML, primary refractory Transplant Date: 08/27/15 Donor: MM URD (DPB1 permissive antigen mismatch, male, [id number]) Identifying Data: Khurram Kelly is a 25 [...] his L ankle. He was evaluated at [facility] ED on 06/[address] [...] acute myelomonocytic leukemia. He was referred to [facility] for further evaluation and man agement of his newly dx'd AML. Pt was admitted to [facility] on 05/26/15. Peripheral blood was [...] CD34, variable CD56, variable CD117, and dim AZ457-losor mickey; promonocyte immunophenotype (70% by flow): CD11b, [...] durin g taper. He is currently day +236 s/p transplant, s/p 6 cycles of azacitidine and returns to clinic today for scheduled follow-up. Interim History: Khurram was most recently evaluated in our [facility] clinic by me on 04/12/16. He and his travelled to [place] over the weekend for the [employer] Sunday night football game. They were gone for 5 days, had a great time. This i s the first vacation they've had without their 3 yo son. While it was hard to be away from him, they enjoyed getting away. Pt was anxious to fly but this improved as the trip got clos er. Ate well, no c/o N/V/D. Feeling great today. Review of Systems Constitutional: Negative for fever, [...] taking narcotics. predniSONE 10 mg oral tablet 10 mg by mouth every other day tacrolimus 0.5 [...] for dresssing change per pt. Filed Vitals: 04/19/2016 1:57 PM Weight: 92.5 kg (203 lb 14.8 oz) BP: 135/81 Pulse: 87 Temp: 37.1 C (98.7 F) TempSrc: Oral Resp: 16 SpO2: 98% PainSc: 0 - Zero BMI: 25.9 kg/(m^2) Physical Exam HENT: Head: Normocephalic and atraumatic. Mouth/Throat: Oropharynx [...] reviewed. Lab Results Component Value Date WBC 7.49 04/19/2016 HB 13.9 04/19/2016 HCT 40.0 04/19/2016 PLT 203 04/19/2016 MCV 97.6 04/19/2016 RDW 44.9 04/19/2016 Lab Results Component Value Date BICARB 24 04/19/2016 TBILI 0.3 04/19/2016 CA 9.3 04/19/2016 CL 101 04/19/2016 CR 1.0 04/19/2016 GLU 123* 04/19/2016 AP 78 04/19/2016 TP 7.2 04/19/2016 BUN 10 04/19/2016 ALB 4.1 04/19/2016 AST 40 04/19/2016 NA 135 04/19/2016 K 3.4 04/19/2016 ALT 87* 04/19/2016 Assessment/Plan: 1. Hematology: Khurram Kelly is currently day +236 s/p tBuCy-conditioned unrel ated donor PBSC transplant [...] of donor origin). --> decrease CBC to qoweekly --> repeat marrow studies today 2. Wcsac-nj-Jqys Disease: Skin bx due to mild rash [...] he was seen in the ED in [place] in late 01/21. Prednisone was increased back [...] 5 mg every other day q2 weeks; next dose reduction due 04/26/16 --> continue tacrolimus 0.5 mg bid without [...] py. --> continue acyclovir and bactrim --> begin post-transplant vaccines today with PCV13 #1 --> inactivated influenza vaccine today --> advised pt to encourage his family/close contacts to receive the inactivated influenza vaccine also --> due to CMV reactivation prior to day +100, continue to monitor PCRs q2 weeks through da y +270 --> repeat immune reconstitution panel at day +270 and d/c bactrim if CD4 count > 300 Lab Results Component Value Date CMVQUANTPCR Undetected 04/12/2016 CMVQUANTPCR Undetected 04/03/2016 CMVQUANTPCR Undetected 03/30/2016 CMVQUANTPCR Undetected 03/20/2016 4. Fluid, Electrolyte and Nutrition: Appetite is [...] provement. Interested in a peer support group. He has been waiting to return from his trip to [place] to contact [facility] for an appt. --> continue current meds --> encouraged pt to contact [facility] to schedule appt --> again encouraged pt to engage with [facility] to establish peer support or AYA support gr janesp resources available at [facility] 7. Follow up --> RTC to f/u with Yari Garcia MD on 05/01/16, sooner prn [facility] [address] [facility] Mailcode: [place] [address] documented in this enc ounter [...] | 2018 | Visit | Malignancy | [address] [place] [address] | | | | | | [facility] | | | | | | [place], [place] | | | | | | [address] | | | | | | [phone] | | | | | | | | +--------+---------+ + + + documented as of this encounter Visit Diagnoses + + | Diagnosis | + + | 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
--- OUTSIDE RECORDS SUMMARY | ~2019-05-17 | XMS | Encounter Summary ---
Demographics + + + | Address | [address] | | | [place] [address] | + + + | Home Phone [...] Team Providers + +------+ + | Care Information Systems Operator Name | Role | Phone | [...] | | | | | remission | [address] | [place] | | | | | | Phone: | [facility] | | | | | Procedures | [phone] | [place], [place] | | | | | Post BMT | Fax: | [address] | | | | | Auth to | [phone] | Phone: | | | | | included | | [phone] | | | | | facility, | | Fax: | | | | | diagnostics, | | [phone] | | | | | office | [...] | (Primary Dx) | | | | [facility] | [place], [place] | | | | | [address] | [address] | | | | | [address] Mailcode: | [phone] | | | | | [facility] | | | | | | [facility]ilion [place], | | | | | | [place] [address] | | | | | | [phone] | | | +--------+---------+ + + + [...] MM URD (DPB1 permissive antigen mismatch, male, [id number]) Identifying Data: Khurram Kelly is a 25 [...] his L ankle. He was evaluated at [facility] ED on 06/[address] angiogram negative [...] acute myelomonocytic leukemia. He was referred to [facility] for further evaluation and man agement of his newly dx'd AML. Pt was admitted to [facility] on 05/26/15. Peripheral blood was [...] CD34, variable CD56, variable CD117, and dim SD327-qleuk mickey; promonocyte immunophenotype (70% by flow): CD11b, [...] eruption of lymphocyte recovery and early mild sahjl-yispue-mxgj disease. 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
--- OUTSIDE RECORDS SUMMARY | ~2019-05-17 | XMS | Encounter Summary ---
Demographics + + + | Address | [address] | | | [place] [address] | + + + | Home Phone [...] Team Providers + +------+ + | Care Collar Tacker Name | Role | Phone | + +------+ + | No Pcp Per Patient | PCP | Unavailable | + +------+ + Encounter Details +--------+ + + + + | Date | Type | Department | Care Team | Description | +--------+ + + + + | 10/22/ | Documentati | Center for | Haily Haider, | | | 2017 | on | Hematologic | ACNP [address] | | | | | Malignancies at | [address] | | | | | [facility] | [place], [place] | | | | | [address] | [address] | | | | | [address] Mailcode: | [phone] | | | | | [facility] | | | | | | [facility] | | | | | | [place] [address] | | | | | | [phone] | | | +--------+ + + + [...] Rd | | | | | | [place], [place] | | | | | | [address] | | | | | | [phone] | | | | | | | | +--------+---------+ + + + documented as of this encounter Visit Diagnoses Not on filedocumented in this encounter"
--- OUTSIDE RECORDS SUMMARY | ~2019-05-17 | XMS | Encounter Summary ---
Demographics + + + | Address | [address] | | | [place] [address] | + + + | Home Phone [...] Team Providers + +------+ + | Care Drier Feeder Name | Role | Phone | + [...] | | | | | achieved | [place], [place] | [facility] | | | | | remission | [address] | Centre | | | | | | Phone: | [place] | | | | | Procedures | [phone] | [place], [place] | | | | | Post BMT | Fax: | [address] | | | | | Auth to | [phone] | Phone: | | | | | included | | [phone] | | | | | facility, | | Fax: | | | | | diagnostics, | | [phone] | | | | | office | | | | | | | visits and | | | | | | | surgery | | | +--------+---------+ + + + + Encounter Details +--------+ + + + + | Date | Type | Department | Care Team | Description | +--------+ + + + + | 02/15/ | Diagnostic | Center for | | | | 2017 | Visit | Hematologic | | | | | | Malignancies at | | | | | | [facility] | | | | | | [address] | | | | | | [address] [place] Mailcode: | | | | | | [facility] | | | | | | [place], | | | | | | [place] [address] | | | | | | [phone] | | | +--------+ + + + [...] + + + + | Weight | 81.5 kg (179 lb 10.8 | 02/15/2017 9:55 AM | | | | oz) | PDT | | + + + + + | Height | - | - | | + + + + + | Body Mass Index | 22.46 | 10/18/2016 10:05 AM | | | | | PDT | | + + + + + documented in this encounter Progress Notes Jhon Castillo MA - 02/15/2017 9:45 AM PDTLeft AC accessed with a 23 gauge butterfly nee dle. Labs drawn and sent. Tolerated procedure well. Site dressed with sterile gauze and C oban. Patient scheduled for provider visit today with Dr.Cook Jhon Castillo MA . documented in this en counter Plan of [...] | | | 2018 | Visit | [facility] | [address] [facility] [address] [facility] | | | | | | [address] | | | | | | [place], [place] | | | | | | [address] | | | | | | [phone] | | | | | | | | +--------+---------+ + + + documented as of this encounter Procedures + +--------+ + + + | Procedure Name | Priori | Date/Time | Associated Diagnosis | Comments | | | ty | | | | + +--------+ + + + | BMP + MAG, POC CHM | Routin | 02/15/2017 | S/P allogeneic | Results for this [...] + + | CBC+DIFF,POC | Routin | 02/15/2017 | S/P allogeneic | Results for this | | | e | 10:11 AM | bone marrow | procedure are in the | | | | PDT | transplant (HCC) | results section. 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 | | DIRECT,ALK | | | Acute myelomonocytic | | | PHOS,ALB,PROT TOTAL) | | | leukemia in | | | | | | remission (HCC) | | + +--------+ + + + | TACROLIMUS, WHOLE | Routin | 02/15/2017 | S/P allogeneic | Results for this | | BLOOD | e | 9:55 AM | bone marrow | procedure are in the | | | | PDT | transplant (HCC) | results section. 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 | + +--------+ + + + documented in this encounter Results BMP + MAG, POC CHM (02/15/2017 10:30 AM PDT) + +---------+ + + + [...] + | GLUCOSE, | 106 (H) | 70 - 99 mg/dL | [...] + + + | LDH, POC | 121 | 0 - 206 U/L | [facility] [...] [facility] | [address] | [place], [place] | | | [address] | [address] | [address] | | | TESTS | | | | + + + + + CBC+DIFF,POC (02/15/2017 10:11 AM PDT) + + + + + + | Component | Value | Ref Range | Performed | Pathologist | | | | | At | Signature | + + + + + + | WBC POC | 7.7 | 3.5 - 10.8 | [facility] - | | | | | 10*3/uL | [facility] | | | | | | [address] | | | | | | OF CARE | | | | | | TESTS | | + + + + + + | RBC POC | 4.27 (L) | 4.50 - 6.00 | [facility] [...] + + + | HCT POC | 42.4 | 41.0 - 53.0 % | [facility] - | | | | | | [facility] | | | | | | [facility] | | | | | | OF CARE | | | | | | TESTS | | + + + + + + | MCV POC | 99.3 (H) | 80.0 - 96.0 fL | [facility] - | | | | | | [facility] | | | | | | [facility]UTHIE CARTER | | | | | | OF CARE | | | | | | TESTS | | + + + + + + | MCH POC | 32.8 (H) | 28.5 - 32.3 pg | [...] + + | RDW SD, POC | 46.1 | 35.1 - 46.3 fL | [facility] - | | | | | | [facility] | | | | | | [facility]UTHIE CARTER | | | | | | OF CARE | | | | | | TESTS | | + + + + + + | PLT POC | 238 | 150 - 400 | [facility] - [...] + + + + | NEUTROPHIL% | 54.1 | 50.0 - 70.0 % | [facility] [...] + + | MONO %, POC | 10.0 (H) | 3.5 - 9.0 % | [...] + + + + | NEUTROPHIL# | 4.2 | 1.8 - 7.7 | [facility] - | | | POC | | 10*3/uL | [facility] | | | | | | [facility], POINT | | | | | | OF CARE | | | | | | TESTS | | + + + + + + | LYMPH# POC | 2.5 | 1.0 - 4.8 | [facility] - [...] [facility] | [address] | [place], [place] | | | [facility] POINT OF CARE | [address] | [address] | | | TESTS | | | | + + + + + TACROLIMUS, WHOLE BLOOD (02/15/2017 9:55 AM PDT) + +---------+ + + + | Component | Value | Ref Range | Performed | Pathologist | | | | | At | Signature | + +---------+ + + + | TACROLIMUS | 2.3 (L) | 5.0 - 15.0 | [facility] [...] | Test performed by immunoassay using [employer]rol[employer] Inspecting Dispatcher i2000. . | [facility] | | Samples [...] | + + + + + | [facility] | [address] | [place] [address] | | | SERVICES, SPECIAL | [address] | | | | IMM + COAG | | | | + + + + + LIVER SET (AST,ALT,BILI TOTAL,BILI DIRECT,ALK PHOS,ALB,PROT TOTAL) (02/15/2017 9:55 AM PDT ) + +---------+ + + [...] +---------+ + + + | AST(SGOT) | 19 | <=41 U/L | [facility] | | | | | | LABORATORY | | | | | | SERVICES, | | | | | | CORE | | + +---------+ + + + | ALT (SGPT) | 30 | <=60 U/L | [facility] | | [...] [facility] | [address] | [place] [address] | | | SERVICES, CORE | [address] | | | + + + + + HEPATITIS B SURFACE AB QUAL, SERUM (02/15/2017 9:55 AM PDT) + + + + + + | Component | Value | Ref Range | Performed | Pathologist | | | | | At | Signature | + + + + + + | HEP B | Detected (A) | Not Detected | [facility] | | | SURFACE AB | | | LABORATORY | | | QUAL | | | SERVICES, | | | | | | CORE | | + + + + + + + + | Specimen | + + | Blood - Blood | | (substance) | + + + + + | Narrative | Performed At | + + + | Ede leiva effective 2016. "Detected" >=10 mIU/mL | [facility] | | indicates immunity to Hepatitis B. | LABORATORY | | | SERVICES, CORE | + + + + + + + + | Performing | Address | City/State/Zipcode | Phone Number | | Organization | | | | + + + + + | [facility] | [address] | [place] [address] | | | SERVICES, INDRA | [address] [...]
--- OUTSIDE RECORDS SUMMARY | ~2019-05-17 | XMS | Encounter Summary ---
Demographics + + + | Address | [address] | | | [place] [address] | + + + | Home Phone [...] Team Providers + +------+ + | Care Development Writer Name | Role | Phone | + [...] | | | | | remission | [address] | [place] | | | | | | Phone: | Pavilion | | | | | Procedures | [phone] | [place], [place] | | | | | Post BMT | Fax: | [address] | | | | | Auth to | [phone] | Phone: | | | | | included | | [phone] | | | | | facility, | | Fax: | | | | | diagnostics, | | [phone] | | | | | office | [...] 2017 | Visit | Hematologic | [address] [facility] | marrow transplant | | | | Malignancies at | [facility] | (HCC) (Primary Dx) | | | | [place] [facility] | [place], [place] | | | | | [address] [facility] [address] | [address] | | | | | [facility] Mailcode: | [phone] | | | | | [facility] [place] | | | | | | Pavilion [place], | | | | | | [place] [address] | | | | | | [phone] | | | +--------+---------+ + + + [...] Donor: MMURD (DPB1 permissive antigen mismatch, male, [id number]) Identifying Data: Khurram Kelly is a 26 [...] his L ankle. He was evaluated at [facility] ED on 06/[address] angiogram negative [...] acute myelomonocytic leukemia. He was referred to [facility] for further evaluation and man agement of his newly dx'd AML. Pt was admitted to [facility] on 05/26/15. Peripheral blood was [...] CD34, variable CD56, variable CD117, and dim AH691-jijnm mickey; promonocyte immunophenotype (70% by flow): CD11b, [...] vision changes. He's been evaluated by his [facility] regenerator operator, prescribed glasses and gtts. No c/o oral [...] indicated providing peripheral counts remain stable 2. 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 He initially responded but flared during taper. He also developed low-level nausea and abd discomfort concerning for GvHD, emp irically treated with oral non-absorbables with resolution. - He had tapered prednisone to 10 mg po daily when he developed a rash for which he was see n in the ED in [place] in late 01/21. Prednisone was increased back [...] FEV1/FVC PRE (%REF) % 91 94 88 LHP99-06% PRE 5.02 L/sec 4.74 4.64 4.12 HPS86-60% PRE (%REF) % 94 91 79 PEF [...] [facility] AT [address] Mailcode: [place] [phone] documented in this enc ounter Plan of [...] 2018 | Visit | Malignancy | [address] [facility] | | | | | | [address] | | | | | | [place], [place] | | | | | | [address] | | | | | | [phone] | | | | | | | | +--------+---------+ + + + documented as of this encounter Visit Diagnoses + + | Diagnosis | + + | 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
--- OUTSIDE RECORDS SUMMARY | ~2019-05-17 | XMS | Encounter Summary ---
Demographics + + + | Address | [address] | | | [place] [address] | + + + | Home Phone [...] Team Providers + +------+ + | Care Antenna Installer Name | Role | Phone | [...] | | | | | remission | [address] | [facility] | | | | | Procedures | Phone: | [place] | | | | | [place] | [phone] | Pavilion | | | | | AZACITIDINE | Fax: | [place], [place] | | | | | INJECTION, 1 | [phone] | [address] | | | | | [place] | | Phone: | | | | | CHM,IV | | [phone] | | | | | INFSN,1 HR | | Fax: | | | | | [place] CHM,IV | | [phone] | | | | | INFSN,ADDL | | | | | | | HR Vidaza | | | +--------+---------+ + + + + Encounter Details +--------+ + + + + | Date | Type | Department | Care Team | Description | +--------+ + + + + | 01/25/ | Clinical | Center for | | Chemotherapy | | 2016 | Support | Hematologic | | (Vidaza) | | | Staff | [facility]ign[facility] at [facility] | | | | | | [address] | | | | | | [address] Mailcode: | | | | | | [facility] [place] | | | | | | [place]a [place], | | | | | | [place] [address] | | | | | | [phone] | | | +--------+ + + + [...] + + + | Blood Pressure | 128/80 | 01/26/2016 8:20 AM | | | | | PDT | | + + + + + | Pulse | 61 | 01/26/2016 8:20 AM | | | | | PDT | | + + + + + | Temperature | 37 C (98.6 F) | 01/26/2016 8:20 AM | | | | | PDT | | + + + + + | Respiratory Rate | 16 | 01/26/2016 8:20 AM | | | | | PDT [...] encounter Progress Notes Silvia Randall RN - 01/26/2016 8:17 AM PDTName: Khurram Navaleland Date: 01/26/2016 Allergies: Khurram is allergic to chlorhexidine towelette. Khurram here for C4D3 Vidaza. VSS. Pt accompanied by his , Gabriel. Nursing Assessment: Fever: no; Diarrhea:No Constipation: No SOB / Cough: no; Rash: no Edema: no; Mucositis: no; Urinary: no; Neuropathy: no; S/S Bleeding: no; Nausea and/or Vomiting: Pt reported mild, intermittent nausea, manageable without anti-emet ics. Denies emesis. Appetite and fluid intake stable. Fatigue: Pt denies. States energy level has been good. Pain: Pt denies Neostar flushing well with good blood return. No labs ordered today. Neostar intact to left anterior chest wall without erythema or induration. Small dressing placed on Neostar with dressing change to decrease skin irritation per pt report, but did not stick well kale ugh. Dressing intact around BioPatch, but peeling up on two sides. Dressing removed, skin in tact without s/s exit site or tunnel infection. Using a Central Line Dressing Change kit, si te cleansed with Chloraprep. Skin prep applied prior to dressing application. Biopatch appl ied with Tegaderm dressing. Positive pressure valve changed to red lumen. Patient tolerated procedure without difficulty. Pre-medication administered PO. Vidaza infused with 250ml NS sidearm bag. Positive blood return on IV line pre and post infusion. Pt tolerated well, without incident. Red lumen of N eostar flushed with 20ml NS. Pt Alert & Oriented x3 and discharged ambulatory in stable cond ition with his . Pt's stated she will flush Neostar with Heparin at home. Refer to MAR and Onc Lines and [...] Hospital | | | | | | [facility] | | | | | | [place], [place] | | | | | | [address] | | | | | | [phone] | | | | | | | [...] | + +--------+ +------+------+------+ | ondansetron (ZOFRAN) tablet 8 | Given | 01/26/20 | 8 mg | | | | mg 8 mg, oral, ONCE, 1 dose, Wed | | 16 8:29 | | | | | 01/26/16 at 0830 | | AM PDT | | | | + +--------+ +------+------+------+ +---+---+ | | | +---+---+ documented in this encounter"
--- OUTSIDE RECORDS SUMMARY | ~2019-05-17 | XMS | Encounter Summary ---
Demographics + + + | Address | [address] | | | [place] [address] | + + + | Home Phone [...] Team Providers + +------+ + | Care Bobbin Dumper Name | Role | Phone | + [...] | | | | | | | [address] | | | | | | | [address] | | | | | | | [place], | | | | | | | [place] | | | | | | | [address] | | | | | | | Phone: | | | | | | | [phone] | | | | | | | Fax: | | | | | | | [phone] | +--------+--------+ + + + + Encounter Details +--------+---------+ + + + | Date | Type | Department | Care Team | Description | +--------+---------+ + + + | 01/05/ | Office | Center for | Yari Garcia MD | 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), M4 | | | | Malignancies at | [address] | (HCC)- primary | | | | [facility] | [place], [place] | induction failure | | | | [address] | [address] | (Primary Dx) | | | | [address] Mailcode: | [phone] | | | | | [facility] | | | | | | [facility] [place], | | | | | | [place] [address] | | | | | | [phone] | | | +--------+---------+ + + + [...] + + + | Blood Pressure | 127/78 | 01/06/2016 10:07 AM | | | | | PDT | | + + + + + | Pulse | 76 | 01/06/2016 10:07 AM | | | | | PDT | | + + + + + | Temperature | 36.8 C (98.2 F) | 01/06/2016 10:07 AM | | | | | PDT | | + + + + + | Respiratory Rate | 16 | 01/06/2016 10:07 AM | | | | | PDT | | + + + + + | Oxygen Saturation | 98% | 01/06/2016 10:07 AM | | | | | PDT | | + + + + + | Inhaled Oxygen | - | - | | | Concentration | | | | + + + + + | Weight | 88.3 kg (194 lb 10.7 | 01/06/2016 10:07 AM | | | | oz) | PDT | | + + + + + | Height | - | - | | + + + + + | Body Mass Index | 25.16 | 08/18/2015 4:35 PM | | | | | PST | | + + + + + documented in this encounter Patient Instructions Patient Instructions Yari Garcia MD - 01/06/2016 10:58 AM PDTDecrease prednisone to 15 mg daily x 3 days, then decrease to 10 mg until return visit. It is ok to cancel your next Sunday visit. AVOID SICK PEOPLE. Call us if you have any trouble at home - there is always someone here. If the on-call doct or has questions that can't be sorted out, have them call me. documented in this encounter Progress Notes Yari Garcia MD - 01/06/2016 10:39 AM PDT 01/06/16: 133 days post transplant [facility] MD: Yari Garcia MD Primary Oncologist: Yari Garcia MD Diagnosis: AMML, primary refractory Transplant Date: 08/27/15 Donor: MM URD (DPB1 permissive antigen mismatch, male, [id number]) Identifying Data: Khurram Kelly is a 25 [...] his L ankle. He was evaluated at [facility] ED on 06/[address] angiogram [...] CD34, variable CD56, variable CD117, and dim [id number] mickey; promonocyte immunophenotype (70% by flow): CD11b, [...] durin g taper. He is currently day +133 s/p transplant, day 11, c3 of azacitidine and returns to clinic to day for scheduled follow-up. Interim History: Khurram returns to clinic today feeling ok. He has recently had some col d symptoms with rhinorrhea and congestion. Mild cough - breathing normal. No associated fe vers or chills. No recurrence of joint pain - not requiring pain medications. Planning return home to [place] later today for first reunion with family members since t ransplant. No nausea/vomiting. No GI distress. No bleeding/bruising. Review of Systems Constitutional: Negative for fever, chills, weight loss and malaise/fatigue. HENT: Mild congestion. Eyes: Negative for blurred vision. Respiratory: [...] Take 1 tablet by mouth once daily. senna-docusate 8.6-50 mg oral tablet Take 1 tablet by mouth twice daily as needed. tacrolimus 0.5 mg oral capsule Take 0.5 mg (one capsule) by mouth twice daily No current facility-administered medications for this visit. Allergies Allergen Reactions Chlorhexidine Towelette Rash PAVAN cloths - ok to use Chloraprep for dresssing change per pt. Filed Vitals: 01/06/2016 10:07 AM Weight: 88.3 kg (194 lb 10.7 oz) BP: 127/78 Pulse: 76 Temp: 36.8 C (98.2 F) TempSrc: Oral Resp: 16 SpO2: 98% PainSc: 0 - Zero BMI: 25.17 kg/(m^2) Physical Exam Constitutional: No distress. Cushinoid HENT: Mouth/Throat: Oropharynx is clear and moist. No oropharyngeal exudate. Eyes: Conjunctivae are normal. Right eye exhibits no discharge. Left eye exhibits no discha rge. No scleral icterus. Neck: Neck supple. Cardiovascular: No murmur heard. Pulmonary/Chest: Effort normal and breath sounds normal. Abdominal: Soft. Bowel sounds are normal. He exhibits no distension. Musculoskeletal: Normal range of motion. No swelling, no bogginess in joints. He exhibits n o edema. Lymphadenopathy: He has no cervical adenopathy. Neurological: He is alert. Skin: Skin is warm and dry. No rash noted. He is not diaphoretic. No erythema. No pallor. Psychiatric: Mood, memory, affect and judgment normal. CVC: Trifusion intact to R ant chest wall without erythema, induration Clinical Senior Geologist on 01/06/2016 Component Date Value WBC POC 01/06/2016 7.4 RBC POC 01/06/2016 3.55* HGB POC 01/06/2016 12.7* HCT POC 01/06/2016 37.2* MCV POC 01/06/2016 104.8* MCH POC 01/06/2016 35.8* MCHC POC 01/06/2016 34.1 RDW SD, POC 01/06/2016 53.5* PLT POC 01/06/2016 66* MPV POC 01/06/2016 8.2* NEUTROPHIL% POC 01/06/2016 63.8 LYMPH% POC 01/06/2016 26.7 MONO %, POC 01/06/2016 8.1 EOS %, POC 01/06/2016 1.3 BASO %, POC 01/06/2016 0.1 NEUTROPHIL# POC 01/06/2016 4.7 LYMPH# POC 01/06/2016 2.0 MONO #, POC 01/06/2016 0.6 EOS #, POC 01/06/2016 0.1 BASO #, POC 01/06/2016 0.0 CBC COMMENT, POC 01/06/2016 Imm Gran. Lft Shift. SODIUM, POC 01/06/2016 142 POTASSIUM, POC 01/06/2016 4.2 TOTAL CO2, POC 01/06/2016 27 CHLORIDE, POC 01/06/2016 105 GLUCOSE, POC 01/06/2016 107* CALCIUM TOTAL, POC 01/06/2016 9.6 BUN, POC 01/06/2016 14 CREATININE, POC 01/06/2016 0.9 LDH, POC 01/06/2016 313* MAGNESIUM, POC 01/06/2016 1.8 ALBUMIN, PLASMA (LAB) 01/06/2016 3.6 BILIRUBIN TOTAL 01/06/2016 0.2* BILIRUBIN DIRECT 01/06/2016 <0.1 ALK PHOS 01/06/2016 83 AST(SGOT) 01/06/2016 74* ALT (SGPT) 01/06/2016 243* TOTAL PROTEIN, PLASMA (L* 01/06/2016 6.9 AST CMNT 01/06/2016 No Hemo BILI T CMNT 01/06/2016 No Hemo BILI D CMNT 01/06/2016 No Hemo Assessment/Plan: 1. Hematology: Khurram Kelly is currently day +133 s/p tBuCy-conditioned unrel ated donor PBSC transplant [...] He began maintenance azacitidine on 11/01/15, currently c11, day 4 . Peripheral blood counts trending down post-chemo; no blood products are required today. --> reviewed recent CBCs when mid-cycle and he has not required any blood product support - ok to return to clinic in 1 week without interval blood counts. Call sooner if bleeding/br uising/fatigue/dyspnea. --> continue CBC q week --> c3 azacitidine [32 mg/m2 IV daily x 5 days] with plan to complete 6 cycles due to activ e disease at time of transplant 2. Ijaxe-ui-Pzhw Disease: Skin bx due to mild rash [...] burst of running? Not consistent with GVHD. Now resolved. --> bilateral knee Xrays unremarkable --> rapid taper of prednisone back to standard slow taper 6. Follow up --> cycle #4 aza to be scheduled, 5 days in a row --> RTC for clinic visit in 1 week with labs/infusion, sooner prn --> of note, pt and planning to travel to [place] 01/05-01/10/16 Yari Garcia MD, MS Roll Line Operatortire building supervisor [facility] [address] [place] [address] documented in this enc ounter Plan of [...] Rd | | | | | | [place], [place] | | | | | | [address] | | | | | | [phone] | | | | | | | | +--------+---------+ + + + documented as of this encounter Visit Diagnoses + + | Diagnosis | + + | Acute myeloid leukemia (AML), M4 (HCC)- primary induction failure - Primary | + + documented in this encounter"
--- OUTSIDE RECORDS SUMMARY | ~2019-05-17 | XMS | Encounter Summary ---
Demographics + + + | Address | [address] | | | [place] [address] | + + + | Home Phone [...] Team Providers + +------+ + | Care Timber Sizer Operator Name | Role | Phone | [...] | | | | | achieved | [place], [place] | [id number] | | | | | remission | [address] | [facility] | | | | | | Phone: | [facility] | | | | | Procedures | [phone] | [place], [place] | | | | | Post BMT | Fax: | [address] | | | | | Auth to | [phone] | Phone: | | | | | included | | [phone] | | | | | facility, | | Fax: | | | | | diagnostics, | | [phone] | | | | | office | | | | | | | visits and | | | | | | | surgery | | | +--------+---------+ + + + + Encounter Details +--------+---------+ + + + | Date | Type | Department | Care Team | Description | +--------+---------+ + + + | 09/16/ | Office | Center for | Saunders, Em L, | Acute myeloid | | 2016 | Visit | Hematologic | PA-C [address] [facility] | leukemia (AML), M4 | | | | Malignancies at | [address] | ([facility])- primary | | | | [facility] | [place], [place] | induction failure | | | | [address] [facility] | [address] | (Primary Dx); S/P | | | | [address] Mailcode: | [phone] | allogeneic bone | | | | [facility] | | marrow transplant | | | | [facility] [place], | | ([facility]) | | | | [place] [address] | | | | | | [phone] | | | +--------+---------+ + + + [...] + | Blood Pressure | 120/69 | 09/17/2015 11:19 AM | | | | | PST | | + + + + + | Pulse | 84 | 09/17/2015 11:19 AM | | | | | PST | | + + + + + | Temperature | 36.7 C (98 F) | 09/17/2015 11:19 AM | | | | | PST | | + + + + + | Respiratory Rate | 16 | 09/17/2015 11:19 AM | | | | | PST | | + + + + + | Oxygen Saturation | 99% | 09/17/2015 11:19 AM | | | | | PST | | + + + + + | Inhaled Oxygen | - | - | | | Concentration | | | | + + + + + | Weight | 75.2 kg (165 lb 12.6 | 09/17/2015 11:19 AM | | | | oz) | PST | | + + + + + | Height | - | - | | + + + + + | Body Mass Index | 21.43 | 08/18/2015 4:35 PM | | | | | PST | | + + + + + documented in this encounter Patient Instructions Patient Instructions Em Saunders PA-C - 09/17/2015 1:02 PM PST-Take your temperature regularly (3-4 x daily) and to call immediately for a temperature of 100.4 or greater. -We'll call you to adjust your Tacrolimus if necessary. -Ursodiol to complete today. -Continue to push fluid intake to 2 liters of fluids per day. -Take Zofran 4-8 mg with your evening medications to help with nausea/vominting in the even ing. documented in this encounter Progress Notes Em Saunders PA-C - 09/17/2015 8:52 AM PSTFormatting of this note might be different f rom the original. 09/17/2015 [facility] Physician: Yari Garcia MD Local Oncologist: Yari Garcia MD PCP: Pending Pcp ADDITION Hematologic Malignancy: Primary refractory AML Conditioning regimen: tBuCy Date of transplant: 08/27/2015 (two day 0s) Donor: MM URD (DPB1 permissive antigen mismatch, male, [id number]) Hematologic History: Khurram Kelly is a 25 [...] his L ankle. He was evaluated at [place]' ED on 06/[address] angiogram negative [...] acute myelomonocytic leukemia. He was referred to [facility] for further evaluation and man agement of his newly dx'd AML. Pt was admitted to [facility] on 05/26/15. Peripheral blood was sent [...] CD34, variable CD56, variable CD117, and dim [id number] mickey; promonocyte immunophenotype (70% by flow): CD11b, [...] of primary refractory AML, currently d ay +21, s/p tBuCy conditioned MM URD SCT. Interval History: presents to clinic today for his routine scheduled visit. He is accompanied by his who is his caregiver in clinic today. His rash is stable from 2 days ago, no ladonna nge per patient. Rash does not seem worse and not necessarily improved. He is applying the c ream. The past couple nights he has had nausea come on randomly and will vomit once then fee l better. He takes Zofran after this occurs. He reports his stools are normal for him and he is having 1 BM daily. He is feeling very hungry and has good appetite, but food and water s till tasting bad. Water has a metallic taste and it is difficult for him to drink all his fl uids since it tastes bad. He is getting in at least a liter of fluids a day. He is taking in shakes and a smoothie in the morning, which he is tolerating well. His energy is improved a nd he was out walking with his son in the yard for 30-60 minutes yesterday. He decided to st op taking Zoloft since he felt that he was more withdrawn when he started it. His mood has b een good since stopping the Zoloft. Review of Systems: General: Denies fevers, chills, [...] No chest pain,lightheadedness,shortness of breath. Gastrointestinal: +nausea with emesis in evening only Denies indigestion, vomiting, diarrhe a, constipation, abdominal pain, bloody stools or dark tarry [...] Take one-half tablet by mouth once daily. LACTULOSE 10 GRAM [...] d aily. PREDNISONE 10 MG TABLET Take three and one-half tablets by mouth two times daily. PROCHLORPERAZINE MALEATE 5 MG TABLET Take 1 tablet by mouth every six hours as needed for n ausea/vomiting. Max dose: 40 mg/day SENNOSIDES-DOCUSATE SODIUM 8.6 MG-50 MG TABLET Take 1 tablet by mouth twice daily as needed (constipation). TACROLIMUS 0.5 MG CAPSULE Take 1.5 mg by mouth twice daily (one 1 mg capsule plus one 0.5 m g capsule = 1.5 mg) TACROLIMUS 1 MG CAPSULE Take 1.5 mg by mouth twice daily (one 1 mg capsule plus one 0.5 mg capsule = 1.5 mg) TRIAMCINOLONE ACETONIDE 0.1 % TOPICAL CREAM Apply to affected area three times daily. Apply thin film to affected areas. Vitals: BP 120/69 | Pulse 84 | Temp (Src) 36.7 C (98 F) (Oral) | RR 16 | Wt 75.2 kg (165 lb 12. 6 oz) | SpO2 99% | BMI 21.44 kg/(m^2) Pre-transplant weight 165 pounds Physical Exam: General: This is a male in no acute distress, sitting up in chair. HEENT: Sclerae anicteric. Mucosa pink and moist without erythema or exudate. Skin: Erythematous maculopapular rash to chest, abd, back, upper arms bilat, thighs bilat (front and back); ~56% BSA - stable from last visit Chest: Lungs clear to auscultation bilat. Normal effort. CV: RRR, no murmurs. Abdomen: S/NT/ND with NABS. No HSM appreciated. Extremities: Pulses strong and equal bilaterally. No c/c/e. Neuro: Alert and oriented x 3. Grossly nonfocal exam. CVC: Central line is a Neostar catheter w/o induration or inflammation Laboratory Results: CBC with diff: Last 72 hours (or 3 results) Recent Labs 09/17/15 1132 WBC 6.6 HB 9.9* HCT 28.6* PLT 104* MONOPERC 18.2* BASOPERC 0.5 EOSPERC 3.2* Chemistries: Last 72 Hours (or 3 results): Recent Labs 09/10/15 2300 09/11/15 2313 09/12/15 2326 09/14/15 1243 09/14/15 1314 09/17/15 1114 09/17/15 1130 NA 144 143 142 -- 138 -- 138 K 3.7 3.9 3.9 -- 4.4 -- 4.7 CL 113* 109* 109* -- 101 -- 96* BICARB 21 25 25 -- 26 -- 26 BUN 22* 19 18 -- 17 -- 21* CR 0.91 0.94 0.96 -- 1.3 -- 1.0 GLU 90 95 121* -- 93 -- 115* CA 8.1* 8.0* 8.3* -- 9.5 -- 9.5 AST 18 22 19 15 -- 12 -- ALT 28 31 35 33 -- 31 -- AP 63 83 96 119 -- 108 -- TBILI 0.5 0.5 0.4 0.4 -- 0.5 -- TP 5.8* 6.1* 6.1* 6.8 -- 7.2 -- ALB 2.7* 2.9* 3.0* 3.6 -- 3.8 -- ANIONGAP 10 9 8 -- -- -- -- ANIONALBCOR 13* 11 10 -- -- -- -- Hematology: Hematologic Malignancy: Refractory AML Conditioning Regimen: tBuCy Stem cell transplant -Stem Cell product: tolerated MM (DPB1 permissive antigen mismatch) stem cell product on -08/27 (two day 0s) without complications. CD 34 count = 5.96 x 10^6 per kg -BMT Day: +21 Pertinent Diagnostics: -Around day + 30 repeat [...] eruption of lymphocyte recovery and early mild uckxk-jqfixm-jujq disease. On 09/13, rash in volved ~15% BSA. Patient seen next day 09/14 with progression of rash to chest, abd, back, upp er arms bilat, thighs bilat (front and back); ~56% BSA. Rash stable from 2 days ago and shereen ins ~56% BSA. -Triamcinolone cream 0.1% TID to rash -Prednisone 1 mg/kg/d (35 mg BID) started 09/15/15. Consider taper at next clinic visit 09/20. -IST as below Prophylaxis/Treatment: -Tacrolimus with levels [...] to be most consistent with inflammatory/uveitic etiology. Analisa barkley saw ophthalmology on 09/15/15 and found to have subconjunctival hemorrhage. -per ophthalmology patient using Pred forte twice a day -patient to follow-up with ophthalmology in 2 weeks Pulmonary: Pretransplant PFTs completed on 08/09/15 showed FEV1 of 99% predicted, FVC of 11 0% predicted and adjusted DLCO of 82% predicted. No acute issues Cardiovascular: Pretransplant TTE completed on 08/10/15 showed a LVEF of 55-60%. 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 Nausea is mild and after vomiting he f eels better. -Zofran BID PRN, suggested patient take Zofran in evening to prevent n/v in evening Loose stools: related to therapy. Last C. Diff negative 08/27. Resolved as of 09/16 clinic v kevon. -imodium PRN /Renal: No acute issues Neuro/Psych: Depression- trial of Zoloft 25 mg daily, stopped on 09/15/15 per patient as he felt more with drawn since starting the medication. Anxiety -continue Xanax [...] CMVQUANTPCR Undetected 08/29/2015 CMVQUANTPCR Undetected 08/22/2015 Antifungal: Posaconazole as of 09/15/15 with HD [...] calorie containing fluids per day. IV Fluid: 1L NS today for low PO intake at home. Lytes: Continue to check chemistries twice weekly. Replace per supportive care protocol. Plan: -The tacrolimus dose will be adjusted when the tacrolimus trough is available. -Will consider steroid taper at next clinic visit depending on skin GvHD. -Continue Triamcinolone cream to rash TID. -Gave 1L NS IVF today for low PO intake at home (~1L PO fluids per day) -Reminded patient to take in 2L of PO fluids per day -Ursodiol to compete today -Suggested patient take Zofran 4-8 mg in the evening to help with nausea/vomiting in evenin g -Return to clinic 09/21/15 to see me, sooner prn. Em Saunders PA-C [facility] [place] [address] [facility] Mailcode: [id number] [place] [address] documented in this encounter Plan [...] 2018 | Visit | Malignancy | [address] [facility] | | | | | | [address] | | | | | | [place], [place] | | | | | | [address] | | | | | | [phone] | | | | | | | | +--------+---------+ + + + documented as of this encounter Results CBC+DIFF,POC (09/21/2015 11:04 AM PDT) + + + + + [...] + + + | RBC POC | 3.56 (L) | 4.50 - 6.00 | [facility] - | | | | | 10*6/uL | [facility] | | | | | | [facility] PO[facility] | | | | | | OF CARE | | | | | | TESTS | | + + + + + + | HGB POC | 10.7 (L) | 13.5 - 17.5 | [facility] - | | | | | g/dL | [facility] | | | | | | [facility] POINT | | | | | | OF CARE | | | | | | TESTS | | + + + + + + | HCT POC | 30.9 (L) | 41.0 - 53.0 % | [facility] - | | | | | | [facility] | | | | | | [facility], POINT | | | | | | OF CARE | | | | | | TESTS | | + + + + + + | MCV POC | 86.8 | 80.0 - 96.0 fL | [facility] - | | | | | | [facility] | | | | | | EM[facility], POINT | | | | | | OF CARE | | | | | | TESTS | | + + + + + + | MCH POC | 30.1 | 28.5 - 32.3 pg | [facility] [...] + + | RDW SD, POC | 43.0 | 35.1 - 46.3 fL | [facility] - | | | | | | [facility] | | | | | | [facility] | | | | | | OF CARE | | | | | | TESTS | | + + + + + + | PLT POC | 245 | 150 - 400 | [facility] - [...] + + + + | NEUTROPHIL% | 70.9 (H) | 50.0 - 70.0 % | [facility] - | | | POC | | | [facility] | | | | | | EMMA, POINT | | | | | | OF CARE | | | | | | TESTS | | + + + + + + | LYMPH% POC | 7.6 (L) | 18 - 42 % | [facility] - | | | | | | [facility] | | | | | | [facility] POINT | | | | | | OF CARE | | | | | | TESTS | | + + + + + + | MONO %, POC | 19.9 (H) | 3.5 - 9.0 % | [facility] - | | | | | | [facility] | | | | | | [facility] POINT | | | | | | OF CARE | | | | | | TESTS | | + + + + + + | EOS %, POC | 1.0 | 1.0 - 3.0 % | [facility] [...] + + + + | NEUTROPHIL# | 7.0 | 1.8 - 7.7 | [facility] - [...] + + | MONO #, POC | 2.0 (H) | 0.1 - 0.9 | [facility] [...] | COMMENT, | Lft Shift. | | [facility] | | | POC [...] [facility] | [address] | [place], [place] | | | [facility] [address] | [address] | [address] | | | TESTS | | | | + + + + + IGG, SERUM (09/21/2015 11:00 AM PDT) + +---------+ + + + | Component | Value | Ref Range | Performed | Pathologist | | | | | At | Signature | + +---------+ + + + | IGG SERUM | 648 (L) | 700 - 1600 | [facility] [...] + | [facility] - | [address] | [place] [address] | | | [place] | | | | + + + + + LIVER SET (AST,ALT,BILI TOTAL,BILI DIRECT,ALK PHOS,ALB,PROT TOTAL) (09/21/2015 11:00 AM PDT ) + +---------+ + + [...] + + + | ALK PHOS | 87 | 53 - 128 U/L | [facility] | | | | | | LABORATORY | | | | | | SERVICES, | | | | | | CORE | | + +---------+ + + + | AST(SGOT) | 11 | <=41 U/L | [facility] | | | | | | LABORATORY | | | | | | SERVICES, | | | | | | CORE | | + +---------+ + + + | ALT (SGPT) | 40 | <=60 U/L | [facility] | | [...] | + + + + + | [facility] | [address] | [place] [address] | | | SERVICES, CORE | [address] | | | + + + + + PHOSPHORUS, PLASMA (09/21/2015 11:00 AM PDT) + +-------+ + + + [...] [facility] | [address] | [place] [address] | | | SERVICES, CORE | [address] | | | + + + + + TACROLIMUS, WHOLE BLOOD (09/21/2015 11:00 AM PDT) + +-------+ + + + | Component | Value | Ref Range | Performed | Pathologist | | | | | At | Signature | + +-------+ + + + | TACROLIMUS | 8.6 | 5.0 - 15.0 | [facility] | [...] + | [facility] | [address] | [place] [address] | | | SERVICES, SPECIAL | [address] | | | | IMM + COAG | | | | + + + + + CMV PCR QUANTITATION, PLASMA (09/21/2015 11:00 AM PDT) + + + + + [...] may not reflect true | [facility] | | biological changes and [...] | | | characteristics determined by the [facility] | | | [facility] Diagnostic Center. It has not been cleared or approved by | | | the Food and Drug Administration. FDA approval is not required for | | | clinical use of this test, and therefore validation was done as | | | required under the requirements of the Clinical Laboratory Improvement | | | Act of 1988. The [facility] | | | Diagnostic Center is a fully licensed and/or accredited clinical | | | laboratory under CLIA, CAP, and the [facility]. | | + + + + + + + + | Performing | Address | City/State/Zipcode | Phone Number | | Organization | | | | + + + + + | [facility] | [address] | [place] [address] | | | DIAGNOSTIC | [address] | | | | LABORATORIES | | | | + + + + + ASPERGILLUS GALACTOMANNAN ANTIGEN, SERUM (09/21/2015 11:00 AM PDT) + + + + + [...] + + + | ASP GAL | 0.15 | <=0.49 Index | [facility] | | [...] HOSPITAL LABORATORY | [address] | [place] [address] | | | KOLE, SPECIAL | [address] | | | | IMM + COAG | | | | + + + + + BMP PLUS, POC [facility] (09/21/2015 10:05 AM PDT) + +---------+ + + + | Component | Value | Ref Range | Performed | Pathologist | | | | | At | Signature | + +---------+ + + + | SODIUM, POC | 137 | 134 - 143 | [facility] - | | | | | mmol/L [...] +---------+ + + + | CHLORIDE, | 94 (L) | 97 - 108 mmol/L | [...] + + + | LDH, POC | 278 (H) | 0 - 206 U/L | [facility] - | | | | | | [facility] | | | | | | [facility] | | | | | | OF CARE | | | | | | TESTS | | + +---------+ + + + | MAGNESIUM, | 1.6 (L) | 1.8 - 2.5 mg/dL | [...] [facility] | [address] | [place], [place] | | | [facility] | [facility] | [address] | | | TESTS | | | [...]
--- OUTSIDE RECORDS SUMMARY | ~2019-05-17 | XMS | Encounter Summary ---
Demographics + + + | Address | [address] | | | [place] [address] | + + + | Home Phone [...] Team Providers + +------+ + | Care Lens Generator Name | Role | Phone | + [...] + + + + | 09/07/ | Anesthesia | 6A Intra Op [facility] | Wilber Crowell, | | | 2017 | Event | [facility] | MD [address] [facility] | | | | | Admitting Desk | [address] | | | | | Located on the | [place], [place] | | | | | [facility] [address] [facility] | [address] | | | | | [address] | [phone] | | | | | [place], [place] | | | | | | [address] | | | +--------+ + + + + Anesthesia Record + + + + + | Procedure Name | Responsible | Anesthesia Start | Anesthesia Stop Time | | | Anesthesiologist | Time | | + + + + + | LEFT TOTAL HIP | Wilber Crowell MD | 09/07/16721 | 09/07/16919 | | ARTHROPLASTY (Left | | | | | Hip) | | | | + + + + + +----+---+ + + | Da | T | Event | Comment | | te | i | | | | | m | | | | | e | | | +----+---+ + + | 03 | 0 | Eq Check | Anesthesia machine checked Equipment verified | | /0 | 7 | | | | 2/ | 0 | | | | 20 | 0 | | | | 17 | | | | +----+---+ + + | | 0 | Pt. Check | Prior to anesthesia start, pt. Identified, examined, chart | | | 7 | | reviewed, PARQ held, anesthetic plan made or approved by | | | 1 | | attending anesthesiologist. NPO status confirmed as appropriate | | | 2 | | for procedure Preoperative evaluation: unchanged | +----+---+ + + | | 0 | An Start | | | | 7 | | | | | 2 | | | | | 2 | | | +----+---+ + + | | 0 | An Start | | | | 7 | Data | | | | 2 | | | | | 8 | | | +----+---+ + + | | 0 | Vitals | Monitors applied Vital signs checked Patient ready for anesthesia | | | 7 | Checked | | | | 3 | | | | | 0 | | | +----+---+ + + | | 0 | Start | | | | 7 | Spinal | | | | 4 | | | | | 5 | | | +----+---+ + + | | 0 | Abx | | | | 8 | Administere | | | | 0 | d | | | | 2 | | | +----+---+ + + | | 0 | Timeout | | | | 8 | | | | | 1 | | | | | 2 | | | +----+---+ + + | | 0 | Incision | | | | 8 | | | | | 1 | | | | | 4 | | | +----+---+ + + | | 0 | Surgery end | | | | 9 | | | | | 0 | | | | | 6 | | | +----+---+ + + | | 0 | an stop | | | | 9 | data | | | | 1 | | | | | 0 | | | +----+---+ + + | | 0 | Anesthesia | | | | 9 | End | | | | 2 | | | | | 0 | | | +----+---+ + + +------+ | Meds | +------+ + + + | Name | Total | + + + | midazolam | 2 mg | + + + | fentaNYL | 70 mcg | + + + | propofol INF | 564,400 mcg | + + + | bupivacaine 0.75% | 2 mL | + + + | acetaminophen PO | 1,000 mg | + + + | gabapentin | 600 mg | + + + | ceFAZolin (ANCEF) injection 2 g | 2 g | + + + | lidocaine 2% | 20 mg | + + + | tranexamic acid (CYCLOKAPRON) IV | 2 g | | 1 g | | + + + | ePHEDrine | 5 mg | + + + | ondansetron | 4 mg | + + + | LR | 2,000 mL | + + + + + | Name | + + | O2 FR Avance (Total Liters) | + + + + | No blood administrations on file. | + + +--------+ + + + | Type | Details | Placement | Removal | +--------+ + + + | Incisi | 09/07/16; 0814; Left; Lateral; | 09/07/16 0814 by | | | on | hip | Nicole Pratt RN | | +--------+ + + + | Periph | 09/07/16; 0715; Left; Hand; 18 g; | 09/07/16 0715 by Lilly | 09/08/16 1230 by | | eral | Lidocaine; Positive; 09/08/16; | ZAFAR De Paz | David Tan RN | | IV | 1230 | | | +--------+ + + + | Urethr | 09/07/16; 0754; Alicia Jacinto; | 09/07/16 0754 by | 09/07/16 1500 by | | dandy | Michael; 16 Fr.; 10 mL; 09/07/16; | Nicole Pratt RN | David Tan RN | | Cathet | 1500 | | | | er | | | | +--------+ + + + | Periph | 09/07/16; 0757; Clinic Staff; | 09/07/16 0757 by | 09/08/16 1230 by | | eral | Right; Dorsal; Wrist; 18 g; No; | Himanshu Ruff Md | David Tan RN | | IV | Negative; 09/08/16; 1230 | | | +--------+ + + + documented in this encounter Social [...] [place] | | | | | | [address] | | | | | | [phone] | | | | | | | | +--------+---------+ + + + documented as of this encounter Procedures + +--------+ + + + | Procedure Name | Priori | Date/Time | Associated Diagnosis | Comments | | | ty | | | | + +--------+ + + + | ANE SPINAL | Routin | 09/07/2016 | | Results for this | | | e | 3:16 PM | | procedure are in the | | | | PST | | results section. | + +--------+ + + + documented in this encounter Results ANE SPINAL (09/07/2016 3:16 PM PST) + + + | Narrative | Performed At | + + + | Wilber Crowell MD 09/07/2016 3:16 PM SPINAL PROCEDURE | | | TYPE Block indication: For surgical anesthesia Location Performed: | | | OR PROCEDURE Pt. Position:Sitting Approach: Midline Monitors | | | used: NIBP, SpO2 and EKG Prep:ChloraPrep ULTASOUND NEEDLE | | | Needle Type: Bernal Gauge: 25 Length: 3.5 in Vertebral Interspace: | | | L4 Spinal Introducer was used Parathesias noted: No, Aspirate for | | | blood: Negative for blood ASSESSMENT See MAR for Drug and | | | Dose, Attempts: 3rd, Complications: None, , Attending: DAVIDE | | | WILBER Rice, Performed by Resident HIMANSHU RUFF 1st several attempts | | | by CA-1 - unable to find space, hitting lamina and slightly off | | | midline. Dr. Crowell repositioned introducer and found space | | | easily. No complications apparent. Technical Difficulty:Easy Sensory | | | Assessment: Decreased in area of block Motor Assessment: Decreased | | | in area of block, Intended Analgesia: Satisfactory block in | | | appropriate fashion | | + + + + + | Procedure Note | + + | Wilber Crowell MD - 09/07/2016 8:15 AM PST SPINAL PROCEDURETYPEBlock indication: | | For surgical anesthesia Location Performed: OR PROCEDUREPt. Position:Sitting | | Approach: Midline Monitors used: NIBP, SpO2 and EKG Prep:ChloraPrep | | ULTASOUNDNEEDLENeedle Type: Bernal Gauge: 25 Length: 3.5 in Vertebral Interspace: L4 | | Spinal Introducer was used Parathesias noted: No, Aspirate for blood: Negative for | | blood ASSESSMENTSee MAR for Drug and Dose, Attempts: 3rd, Complications: None, , | | Attending: WILBER CROWELL, Performed by Resident HIMANSHU RUFF R1st several attempts | | by CA-1 - unable to find space, hitting lamina and slightly off midline. Dr. Crowell | | repositioned introducer and found space easily. No complications apparent. Technical | | Difficulty:Easy Sensory Assessment: Decreased in area of block Motor Assessment: | | Decreased in area of block, Intended Analgesia: Satisfactory block in appropriate | | fashion | |See MAR for Drug and Dose, Attempts: 3rd, Complications: None, , | |Attending: WILBER CROWELL, Performed by Resident HIMANSHU RUFF R | |1st several attempts by CA-1 - unable to find space, hitting lamina and slightly off midlin e. Dr. Crowell repositioned introducer and found space easily. No complications apparent. Technical Difficulty:Easy Sensory | |Assessment: Decreased in area of block Motor Assessment: Decreased in area of block, Intend ed Analgesia: Satisfactory block in appropriate fashion | + + documented in this encounter Visit Diagnoses Not on filedocumented in this encounter Administered Medications + +--------+ + +------+------+ | Medication Order | MAR | Action | Dose | Rate | Site | | | Action | Date | | | | + +--------+ + +------+------+ | acetaminophen (TYLENOL) tablet | Given | 09/08/19 | 1,000 mg | | | | INTRAPROCEDURE PRN, Starting Lupe | | 17 7:19 | | | | | 09/07/16 at 0719, Until Lupe 09/07/16 | | AM PST | | | | | at 0910 | | | | | | + +--------+ + +------+------+ +---+---+ | | | +---+---+ + +-------+ +------+---+---+ | bupivacaine | Given | 09/08/19 | 2 mL | | | | (MARCAINE,SENSORCAINE-MPF) 0.75 % | | 17 7:45 | | | | | (7.5 mg/mL) injection | | AM PST | | | | | INTRAPROCEDURE PRN, Starting Lupe | | | | | | | 09/07/16 at 0745, Until Lupe 09/07/16 | | | | | | | at 0910 | | | | | | + +-------+ +------+---+---+ +---+---+ | | | +---+---+ + +-------+ +-----+---+---+ | ceFAZolin (ANCEF) injection 2 g | Given | 09/08/19 | 2 g | | | | 2 g, intravenous, PREPROCEDURE | | 17 8:02 | | | | | ONCE, 1 dose, Starting Lupe 09/07/16 | | AM PST | | | | | at 0602, Until Lupe 09/07/16 at | | | | | | | 0802 | | | | | | + +-------+ +-----+---+---+ +---+---+ | | | +---+---+ + +-------+ +------+---+---+ | ePHEDrine injection | Given | 09/08/19 | 5 mg | | | | intravenous, INTRAPROCEDURE PRN, | | 17 8:38 | | | | | Starting Lupe 09/07/16 at 0838, | | AM PST | | | | | Until Lupe 09/07/16 at 0910 | | | | | | + +-------+ +------+---+---+ +---+---+ | | | +---+---+ + +-------+ +--------+---+---+ | fentaNYL citrate (PF) | Given | 09/08/19 | 20 mcg | | | | (SUBLIMAZE) injection | | 17 7:45 | | | | | INTRAPROCEDURE PRN, Starting Lupe | | AM PST | | | | | 09/07/16 at 0742, Until Lupe 09/07/16 | | | | | | | at 0910 | | | | | | + +-------+ +--------+---+---+ +-------+ +--------+---+---+ | Given | 09/08/19 | 50 mcg | | | | | 17 7:42 | | | | | | AM PST | | | | +-------+ +--------+---+---+ +---+---+ | | | +---+---+ + +-------+ +--------+---+---+ | gabapentin (NEURONTIN) capsule | Given | 09/08/19 | 600 mg | | | | INTRAPROCEDURE PRN, Starting Lupe | | 17 7:19 | | | | | 09/07/16 at 0719, Until Lupe 09/07/16 | | AM PST | | | | | at 0910 | | | | | | + +-------+ +--------+---+---+ +---+---+ | | | +---+---+ + + + +---+---+---+ | lactated ringers IV | given by | 09/08/19 | | | | | INTRAPROCEDURE CONTINUOUS PRN, | | 17 8:52 | | | | | Starting Lupe 09/07/16 at 0719, | anesthes | AM PST | | | | | Until Lupe 09/07/16 at 0910 | iology | | | | | + + + +---+---+---+ + + +---+---+---+ | given by anesthesiology | 09/08/19 | | | | | | 17 8:36 | | | | | | AM PST | | | | + + +---+---+---+ | given by anesthesiology | 09/08/19 | | | | | | 17 8:04 | | | | | | AM PST | | | | + + +---+---+---+ +---+---+ | | | +---+---+ + +-------+ +-------+---+---+ | lidocaine PF (XYLOCAINE MPF) 20 | Given | 09/08/19 | 20 mg | | | | mg/mL (2 %) injection | | 17 8:04 | | | | | INTRAPROCEDURE PRN, Starting Lupe | | AM PST | | | | | 09/07/16 at 0804, Until Lupe 09/07/16 | | | | | | | at 0910 | | | | | | + +-------+ +-------+---+---+ +---+---+ | | | +---+---+ + +-------+ +------+---+---+ | midazolam (VERSED) injection | Given | 09/08/19 | 2 mg | | | | INTRAPROCEDURE PRN, Starting Lupe | | 17 7:24 | | | | | 09/07/16 at 0724, Until Lupe 09/07/16 | | AM PST | | | | | at 0910 | | | | | | + +-------+ +------+---+---+ +---+---+ | | | +---+---+ + +-------+ +------+---+---+ | ondansetron (ZOFRAN) injection | Given | 09/08/19 | 4 mg | | | | INTRAPROCEDURE PRN, Starting Lupe | | 17 9:00 | | | | | 17 at 0900, Until Lupe 17 | | AM PST | | | | | at 0910 | | | | | | + +-------+ +------+---+---+ +---+---+ | | | +---+---+ + + + + +-------+---+ | propofol (DIPRIVAN) injection | Rate/Dos | 09/08/19 | 50 | 24.9 | | | INTRAPROCEDURE CONTINUOUS PRN, | e Change | 17 9:04 | mcg/kg/m | mL/hr | | | Starting Lupe 09/07/16 at 0749, | | AM PST | in | | | | Until Lupe 09/07/16 at 0910 | | | | | | + + + + +-------+---+ + + + +--------+---+ | Rate/Dose Change | 09/08/19 | 75 | 37.35 | | | | 17 9:00 | mcg/kg/m | mL/hr | | | | AM PST | in | | | + + + +--------+---+ | New Bag | 09/08/19 | | | | | | 17 8:17 | | | | | | AM PST | | | | + + + +--------+---+ +---+---+ | | | +---+---+ + +-------+ +-----+---+---+ | tranexamic acid (CYCLOKAPRON) | Bolus | 09/08/19 | 1 g | | | | IV 1 g 1 g, intravenous, | | 17 8:55 | | | | | PREPROCEDURE ONCE (DISPENSE), 1 | | AM PST | | | | | dose, Starting [facility] 09/07/16 at | | | | | | | 0602, Until Lupe 09/07/16 at 0855 | | | | | | + +-------+ +-----+---+---+ +---------+ +-----+---+---+ | New Bag | 09/08/19 | 1 g | | | | | 17 8:09 | | | | | | AM PST | | | | +---------+ +-----+---+---+ +---+---+ | | | +---+---+ documented in this encounter"
--- OUTSIDE RECORDS SUMMARY | ~2019-05-17 | XMS | Encounter Summary ---
Demographics + + + | Address | [address] | | | [place] [address] | + + + | Home Phone [...] Team Providers + +------+ + | Care Press Bucker Name | Role | Phone | + [...] | | | [address] | [place], [place] | | | | | Debi Burger Mailcode: | [address] | | | | | [facility] | [phone] | | | | | [place], | | | | | | [place] [address] | | | | | | [phone] | | | +--------+ + + + [...] Rd | | | | | | [place] | | | | | | [address] | | | | | | [phone] | | | | | | | | +--------+---------+ + + + documented as of this encounter Visit Diagnoses Not on filedocumented in this encounter"
--- OUTSIDE RECORDS SUMMARY | ~2019-05-17 | XMS | Encounter Summary ---
Demographics + + + | Address | [address] | | | [place] [address] | + + + | Home Phone [...] Providers + +------+ + | Care Hydraulic Press Tender Name | Role | Phone | + +------+ + | Pending Pcp Addition | PCP | Unavailable | + +------+ + Encounter Details +--------+ + + + + | Date | Type | Department | Care Team | Description | +--------+ + + + + | / | Telephone | Dermatology | Sujata King | | | 2015 | | Medical at [facility] | MD Joseph | | | | | Floor [address] [facility] | | | | | | [place] Mailcode: [id number] | | | | | | [facility] | | | | | | and Healing, | | | | | | | | | | | | Floor [place], [place] | | | | | | [address] | | | | | | [phone] | | | +--------+ + + + [...] Rd | | | | | | [place], [place] | | | | | | [address] | | | | | | [phone] | | | | | | | | +--------+---------+ + + + documented as of this encounter Procedures + +--------+ + + + | Procedure Name | Priori | Date/Time | Associated Diagnosis | Comments | | | ty | | | | + +--------+ + + + | DERM PATHOLOGY | Routin | 09/06/2015 | Rash and other | Results for this | | | e | | nonspecific skin | procedure are in the | | | | | eruption | results section. | + +--------+ + + + documented in this encounter Results DERM PATHOLOGY (09/06/2015) + + + + + + | Component | Value | Ref Range | Performed | Pathologist | | | | | At | Signature | + + + + + + | DERMATOPATH | SOURCE OF SPECIMEN:A Lt. 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 | | | | | | GROSS | | | | | | DESCRIPTION:Received in | | | | | | formalin is a specimen | | | | | | labeled Tyeliat, | | | | | | Khurram:A: Specimen is | | | | | | labeled "L upper back" | | | | | | and consists of a 3mm | | | | | | punch oftan-white skin, | | | | | | cut to a depth of 9mm. | | | | | | The surgical margin is | | | | | | inked black;the tissue | | | | | | is bisected; and | | | | | | entirely submitted in | | | | | | cassette A1. | | | | | | MICROSCOPIC | | | | | | DESCRIPTION:There is a | | | | | | mild, superficial | | | | | | perivascular lymphocytic | | | | | | infiltrate | | | | | | withscattered | | | | | | melanophages. Few | | | | | | lymphocytes extend to | | | | | | the overlying | | | | | | epidermiswhere there is | | | | | | subtle basal vacuolar | | | | | | change with rare | | | | | | dyskeratosis | | | | | | andbasket-weave stratum | | | | | | corneum. | | | | | | DIAGNOSIS:SUBTLE | | | | | | VACUOLAR INTERFACE | | | | | | DERMATITIS. NOTE: | | | | | | Though quite subtle and | | | | | | not entirely specific, | | | | | | the changes | | | | | | areconsistent with | | | | | | eruption of lymphocyte | | | | | | recovery and early | | | | | | ozsuafllq-pgexjh-ehab | | | | | | disease. Similar | | | | | | histologic changes may | | | | | | be seen inmorbilliform | | | | | | eruptions of variable | | | | | | etiology including viral | | | | | | exanthem. Whilenot | | | | | | required for a | | | | | | diagnosis, the paucity | | | | | | of eosinophils probably | | | | | | makesdrug eruption less | | | | | | likely. My | | | | | | [...] Diagnostician: | | | | | | Pricilla Spain | | | | | | Phani | | | | | | MDPathologistElectronica | | | | | | lly Signed 09/07/2015 | | | | | | 5:20PM | | | | + + + + + + + + | Specimen | + + | Biopsy | + + + + + | Narrative | Performed At | + + + | | | + + + + + + + + | Performing | Address | City/State/Zipcode | Phone Number | | Organization | | | | + + + + + | [facility] | Mailcode CH5D, [address] | [place] [address] | | | DERMATOPATHOLOGY | [address] | | | + + + + + documented in this encounter Visit Diagnoses + + | Diagnosis | + + | Rash and other nonspecific skin eruption - Primary | + + documented in this encounter
--- OUTSIDE RECORDS SUMMARY | ~2019-05-17 | XMS | Encounter Summary ---
Demographics + + + | Address | [address] | | | [place] [address] | + + + | Home Phone [...] Team Providers + +------+ + | Care Lpn Instructor Name | Role | Phone | + +------+ + | Pending Pcp Addition | PCP | Unavailable | + +------+ + Encounter Details +--------+ + + + + | Date | Type | Department | Care Team | Description | +--------+ + + + + | 12/23/ | Telephone | Center for | Aspen Cummins FNP | | | 2016 | | Hematologic | [address] | | | | | Malignancies at [facility] | [address] | | | | | [address] | [place], [place] | | | | | Debi Burger Mailcode: | [address] | | | | | [facility] | [phone] | | | | | [place], | | | | | | [place] [address] | | | | | | [phone] | | | +--------+ + + + [...] Rd | | | | | | [place], [place] | | | | | | [address] | | | | | | [phone] | | | | | | | | +--------+---------+ + + + documented as of this encounter Visit Diagnoses Not on filedocumented in this encounter"
--- OUTSIDE RECORDS SUMMARY | ~2019-05-17 | XMS | Encounter Summary ---
Demographics + + + | Address | [address] | | | [place] [address] | + + + | Home Phone [...] Providers + +------+ + | Care Manager Fashion Name | Role | Phone | + [...] Description | +--------+--------+ + + + | 07/04/ | Refill | Center for | Yari Garcia MD | Refill Request | | 2017 | | Hematologic | [address] [facility] | | | | | Malignancies at | [address] [facility] | | | | | [address] | [place], [place] | | | | | [address] [facility] | [address] | | | | | [facility] Mailcode: | [phone] | | | | | [address] [place] | | | | | | [place], | | | | | | [place] [address] | | | | | | [phone] | | | +--------+--------+ + + + [...] 2019 | Visit | Malignancy | [address] [facility] | | | | | | [address] | | | | | | [place] | | | | | | [address] | | | | | | [phone] | | | | | | | | +--------+---------+ + + + documented as of this encounter Visit Diagnoses Not on filedocumented in this encounter"
--- OUTSIDE RECORDS SUMMARY | ~2019-05-17 | XMS | Encounter Summary ---
Demographics + + + | Address | [address] | | | [place] [address] | + + + | Home Phone [...] Team Providers + +------+ + | Care Checker Stocker Name | Role | Phone | + [...] | | | | | remission | [address] | [facility] | | | | | | Phone: | [facility] | | | | | Procedures | [phone] | [place], [place] | | | | | Post BMT | Fax: | [address] | | | | | Auth to | [phone] | Phone: | | | | | included | | [phone] | | | | | facility, | | Fax: | | | | | diagnostics, | | [phone] | | | | | office | [...] at | | | | | | [facility] | | | | | | [address] | | | | | | Wally Burger Mailcode: | | | | | | [facility] | | | | | | [place], | | | | | | [place] [address] | | | | | | [phone] | | | +--------+ + + + [...] 2019 | Visit | Malignancy | [address] [facility] | | | | | | [address] | | | | | | [place], [place] | | | | | | [address] | | | | | | [phone] | | | | | | | [...] SORTO | [address] | [place], [place] | | | RUTHIE CARTER OF CARE | [address] | [address] | | | TESTS | | | [...] (H) | 0 - 206 U/L | [facility] | | | | | | [place] | | | | | | [facility] POINT | | | | | | OF CARE | | | | | | TESTS | | + +---------+ + + + | MAGNESIUM, | 2.1 | 1.8 - 2.5 mg/dL | [facility] - | | | POC | | [...] MACARIO | [address] | [place], [place] | | | [facility] POINT OF CARE | [facility] | [address] | | | TESTS | | | [...] LOZA | [address] | [place] [address] | | | SERVICES, CORE | WALLY [...]
--- OUTSIDE RECORDS SUMMARY | ~2019-05-17 | XMS | Encounter Summary ---
[...] Team Providers + +------+ + | Care Ambulatory Care Coordinator Name | Role | Phone | [...] | | | | | achieved | [place], [place] | [facility] | | | | | remission | [address] | [facility] | | | | | | Phone: | Asha | | | | | Procedures | [phone] | [place], [place] | | | | | Post BMT | Fax: | [address] | | | | | Auth to | [phone] | Phone: | | | | | included | | [phone] | | | | | facility, | | Fax: | | | | | diagnostics, | | [phone] | | | | | office | | | | | | | visits and | | | | | | | surgery | | | +--------+---------+ + + + + Encounter Details +--------+---------+ + + + | Date | Type | Department | Care Team | Description | +--------+---------+ + + + | 12/18/ | Office | Center for | Yari Garcia MD | 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 | Visit | 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) (HCC) | | | | Malignancies at | [address] | (Primary Dx) | | | | [facility] | [facility] [place] | | | | | [address] | [address] | | | | | Debi Burger Mailcode: | [phone] | | | | | [facility] | | | | | | [place], | | | | | | [place] [address] | | | | | | [phone] | | | +--------+---------+ + + + [...] + + + | Blood Pressure | 141/91 | 12/18/2016 2:04 PM | | | | | PDT | | + + + + + | Pulse | 75 | 12/18/2016 2:04 PM | | | | | PDT | | + + + + + | Temperature | 36.7 C (98.1 F) | 12/18/2016 2:04 PM | | | | | PDT | | + + + + + | Respiratory Rate | 18 | 12/18/2016 2:04 PM | | | | | PDT | | + + + + + | Oxygen Saturation | 98% | 12/18/2016 2:04 PM | | | | | PDT | | + + + + + | Inhaled Oxygen | - | - | | | Concentration | | | | + + + + + | Weight | 73.2 kg (161 lb 6 | 12/18/2016 2:04 PM | | | | oz) | PDT | | + + + + + | Height | - | - | | + + + + + | Body Mass Index | 20.17 | 10/18/2016 10:05 AM | | | | | PDT | | + + + + + documented in this encounter Progress Notes Yari Garcia MD - 12/18/2016 1:25 PM PDT 12/18/16 480 days post transplant [facility] Primary [facility] MD: Yari Garcia MD Primary Oncologist: Yari Garcia MD Diagnosis: AMML, primary refractory Transplant Date: 08/27/15 Donor: MMURD (DPB1 permissive antigen mismatch, male, [id number]) Identifying Data: Khurram Kelly is a 26 [...] ankle. He was evaluated at [facility] ED on 06/[address] angiogram [...] leukemia. He was referred to [facility] for further evaluation and man agement of his newly dx'd AML. Pt was admitted to [facility] on 05/26/15. Peripheral blood was [...] CD34, variable CD56, variable CD117, and dim HW551-clwxn mickey; promonocyte immunophenotype (70% by flow): CD11b, [...] L total hip arthroplasty. He is currently 480 days post transplants/p transplant, s/p 6 cyclesof azacitidine and returns to clinic today for scheduled follow-up. Interim History: Khurram returns to clinic today and is doing well overall. 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 He fe lt a camaraderie that he hasn't felt with peers in a long time and feels that it was an impo rtant stepping stone for him. He has continued to lose some weight which he attributes to increased exercise and healthy eating (eating zucchini noodles instead of pasta, on the beach body diet because per 's preference). Not having nausea or abdominal pain. Planning on moving back to [place] later this summer. No fevers/chills. No skin changes. Review of Systems Constitutional: Negative for chills, fever and malaise/fatigue. HENT: Negative for headaches, congestion and sore throat. Eyes: Positive for redness (resolved ). Negative for blurred vision and discharge. Respiratory: [...] this visit. No Known Allergies Filed Vitals: 12/18/2016 2:04 PM Weight: 73.2 kg (161 lb 6 oz) BP: 141/91 Pulse: 75 Temp: 36.7 C (98.1 F) TempSrc: Oral Resp: 18 SpO2: 98% PainSc: 0 - Zero BMI: 20.17 kg/(m^2) Physical Exam Constitutional: No distress. Thin [...] reviewed. Lab Results Component Value Date WBC 10.42 12/18/2016 HB 14.0 12/18/2016 HCT 41.8 12/18/2016 PLT 248 12/18/2016 MCV 95.7 12/18/2016 RDW 49.7 12/18/2016 Lab Results Component Value Date BICARB 29 12/18/2016 TBILI 0.4 12/18/2016 CA 9.4 12/18/2016 CL 103 12/18/2016 CR 0.95 12/18/2016 GLU 100 (H) 12/18/2016 AP 91 10/09/2016 TP 7.0 12/18/2016 BUN 14 12/18/2016 ALB 4.1 12/18/2016 AST 40 12/18/2016 NA 138 12/18/2016 K 4.3 12/18/2016 ALT 73 (H) 12/18/2016 Assessment/Plan: 1. Hematology: Khurram Kelly is [id number] days post transplant s/p tBuCy-conditioned unrelated donor [facility] transplant for primary refractory AML, s/p 6 cy cles of azacitidine for post-transplant relapse. His most recent marrow studies completed showed a normocellular marrow (30%) with trilineage hematopoiesis, marrow eosinophilia (~15%) and <2% myeloid blasts. Karyotype 46,XY[20]. VNTR showed no detectable host cell s. 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 CBC remains WNL with no evidence of disease by peripheral smear. 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 He initially responded but flared during taper. He also developed low-level nausea and abd discomfort concerning for GvHD, emp irically treated with oral non-absorbables with resolution. - He had tapered prednisone to 10 mg po daily when he developed a rash for which he was see n in the ED in [place] in late 01/21. Prednisone was increased back [...] -->continuemycophenolate ER 720 mg po BID --> continue prednisone 20 mg po every other day alt with 10 mg po every other day --> continue to f/u with ophthalmology per their recommendations 3. Infectious Disease: Afebrile without localizing s/s infection. He continues prophylact ic acyclovir and bactrim. Completed a 3-week course of fluconazole 400 mg po daily on 11/12/16 for findings of esophageal candidiasis His most recent immune reconstitution panel [facility] 08/31/16 showed normal total T cells [...] doing very well post-surgery. --> Ortho recommended f/uLobo Jeffers MD in 1 year, sooner prn [...] one patient with minimal guidance from the shot hole shooter (not t he usual shot hole shooter). He is willing to give it another try but thinks individualtherapy may be best for him. He has since restarted xanax 1 mg po TID with marked improvement in h is symptoms. 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 States he is plann ing to come to [place] monthly for f/u with us after return to [place] this summer. -->continue to attend [facility] support group as able --> continue xanax 1 mg po TID --> again encouraged pt to schedule counseling session at [facility]; he and his have contact information. If he is planning to come back here monthly for f/u, he can continue t o f/u with his provider there 7. 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
--- OUTSIDE RECORDS SUMMARY | ~2019-05-17 | XMS | Encounter Summary ---
Demographics + + + | Address | [address] | | | [place] [address] | + + + | Home Phone [...] Providers + +------+ + | Care Manager Property Name | Role | Phone | + +------+ + | Zayda Hinton | PCP | | + +------+ + Reason for Visit + + + | Reason | Comments | + + + | Questionnaire | distress screen | + + + Encounter Details +--------+ + + + + | Date | Type | Department | Care Team | Description | +--------+ + + + + | 11/07/ | Documentati | Center for | Work, Social | Questionnaire | | 2019 | on | Hematologic | | (distress screen) | | | | Malignancies at [facility] | | | | | | [address] | | | | | | Mailcode: [place] | | | | | | for Health and | | | | | | [facility] [address] | | | | | | [place], [place] | | | | | | [address] | | | | | | [phone] | | | +--------+ + + + [...] [place] | | | | | | [address] | | | | | | [phone] | | | | | | | | +--------+---------+ + + + documented as of this encounter Visit Diagnoses Not on filedocumented in this encounter"
--- OUTSIDE RECORDS SUMMARY | ~2019-05-17 | XMS | Encounter Summary ---
Demographics + + + | Address | [address] | | | [place] [address] | + + + | Home Phone [...] Team Providers + +------+ + | Care Circle Edger Name | Role | Phone | + [...] Rd | | | | | | [place], [place] | | | | | | [address] | | | +--------+ + + + [...] Rd | | | | | | [place] | | | | | | [address] | | | | | | [phone] | | | | | | | | +--------+---------+ + + + documented as of this encounter Visit Diagnoses Not on filedocumented in this encounter"
--- OUTSIDE RECORDS SUMMARY | ~2019-05-17 | XMS | Encounter Summary ---
Demographics + + + | Address | [address] | | | [place] [address] | + + + | Home Phone [...] Team Providers + +------+ + | Care Income Tax Preparer Name | Role | Phone [...] | | | | | achieved | [place], [place] | [facility] | | | | | remission | [address] | [place] | | | | | | Phone: | Asha | | | | | Procedures | [phone] | [place], [place] | | | | | Post BMT | Fax: | [phone] | | | | | Auth to | [phone] | Phone: | | | | | included | | [phone] | | | | | facility, | | Fax: | | | | | diagnostics, | | [phone] | | | | | office | [...] Barry | | | | | | [address] | | | | | | [place] Burger Mailcode: | | | | | | [facility] | | | | | | [place], | | | | | | [place] [address] | | | | | | [phone] | | | +--------+ + + + [...] | | | 2018 | Visit | [facility] | [address] [facility] [address] [facility] | | | | | | [address] | | | | | | [place], [place] | | | | | | [address] | | | | | | [phone] | | | | | | | [...] [place] | [address] | [place], [place] | | | RUTHIE CARTER [address] | [address] | [address] | | | TESTS | | | [...] [facility] | [address] | [place], [place] | | | [facility] POINT OF CARE | [address] | [address] | | | TESTS | | | [...] | Test performed by immunoassay using [employer] i2000. . | [facility] | | Samples [...] | + + + + + | [facility] | [address] | [place] [address] | | | SERVICES, SPECIAL | WALLY [...] [facility] | [address] | [place] [address] | | | SERVICES, CORE | WALLY [...] | + + + + + | [facility] | [address] | [place] [address] | | | SERVICES, INDRA | WALLY [...]
--- OUTSIDE RECORDS SUMMARY | ~2019-05-17 | XMS | Encounter Summary ---
Demographics + + + | Address | [address] | | | [place] [address] | + + + | Home Phone [...] Team Providers + +------+ + | Care Auxiliary Equipment Tender Name | Role | Phone | + +------+ + | Pending Pcp Addition | PCP | Unavailable | + +------+ + Reason for Visit + + + | Reason | Comments | + + + | Lab Draw | | + + + | Transfusion | | + + + | Intravenous infusion | | + + + Chemotherapy (Routine) [...] [address] | | | | | [place] | | [address] | | | | | [address] | | [address] [place], | | | | | INJECTION, 1 | | [place] | | | | | [place] | | [address] | | | | | CH[facility],IV | | Phone: | | | | | INFSN,1 HR | | [phone] | | | | | [place] [facility],IV | | Fax: | | | | | INFSN,ADDL | | [phone] | | | | | [place] | | | +--------+--------+ + + + + Encounter Details +--------+ + + + + | Date | Type | Department | Care Team | Description | +--------+ + + + + | 07/30/ | Clinical | Center for | | Lab Draw; | | 2015 | Support | Hematologic | | Transfusion; | | | Staff | Malignancies at [facility] | | Intravenous infusion | | | | [address] | | | | | | [place] Mailcode: | | | | | | [facility] | | | | | | [place], | | | | | | [place] [address] | | | | | | [phone] | | | +--------+ + + + [...] + + + | Blood Pressure | 119/76 | 07/30/2015 5:05 PM | | | | | PST | | + + + + + | Pulse | 73 | 07/30/2015 5:05 PM | | | | | PST | | + + + + + | Temperature | 36.8 C (98.3 F) | 07/30/2015 5:05 PM | | | | | PST | | + + + + + | Respiratory Rate | 16 | 07/30/2015 5:05 PM | | | | | PST | | + + + + + | Oxygen Saturation | 100% | 07/30/2015 5:05 PM | | | | | PST | | + + + + + | Inhaled Oxygen | - | - | | | Concentration | | | | + + + + + | Weight | 81.6 kg (179 lb 14.3 | 07/30/2015 2:51 PM | | | | oz) | PST | | + + + + + | Height | - | - | | + + + + + | Body Mass Index | 22.79 | 07/15/2015 1:57 PM | | | | | PST | | + + + + + documented in this encounter Progress Notes Jessica Ramirez, RN - 07/30/2015 3:02 PM PSTFormatting of this note might be different f rom the original. Patient arrives ambulatory with for CBC and possible blood products. Kermit valentino is a 24 year old male with newly diagnosed AML, s/p 3+7 and reinduction with [facility] awaitin g Stem cell tx in August for aggressive disease. He just completed cycle 1 of 2 cycles of Decitibine to hold disease until transplant in August. Patient reports he is feeling well today. He does report an episode of vomiting after havi ng a smoothie yesterday and an episode when he hit toothbrush on back of mouth. He has been taking Zofran but thinks both episodes are anomalies. The patient denies colds, flu, fever , infection, diarrhea, constipation, signs or symptoms of anemia, edema, skin rash, urinary issues, and signs or symptoms of bleeding. The patient reports that he is eating well and drinking at least two liters of fluid daily. Power PICC accessed per protocol. Red lumen somewhat sluggish. Good blood return noted. A ppropriate waste discarded. Labs drawn and sent. Power PICC pulse flushed with 20 mL NS. Lab Results Component Value Date HCT 20.3 07/30/2015 HB 7.1 07/30/2015 Orders to transfuse PRBC product for a [...] ON C Lines & Transfusions doc flowsheet. Alteplase 2 mg IV instilled into red lumen of patient's Power PICC (getting progressively m ore sluggish). Positive blood return noted after 60 minutes of instillation time. 5 mL blo od aspirated and discarded. Power PICC flushed with 20 mL NS. Type and Screen sent for possible transfusions on Sunday. Patient discharged home. documented in this encounter Plan of Treatment [...] | Visit | Malignancy | [address] [facility] | | | | | | [address] | | | | | | [place], [place] | | | | | | [address] | | | | | | [phone] | | | | | | | | +--------+---------+ + + + + + +--------+ + + | Name | Type | Priori | Associated Diagnoses | Order Schedule | | | | ty | | | + + +--------+ + + | CBC+DIFF,POC | Lab - Point | Routin | Acute myeloid | Ordered: 07/30/2015 | | | of Care | e [...] + | ANTIBODY SCREEN | Urgent | 07/30/2015 | Acute myeloid | Results for this | | | | 3:35 PM | leukemia (AML), M4 | procedure are in the | | | | PST | ([facility]) | results section. | + +--------+ + + + | TYPE AND SCREEN | Urgent | 07/30/2015 | Acute myeloid | Results for this | | | | 3:35 PM | leukemia (AML), M4 | procedure are in the | | | | PST | ([facility]) | results section. | + +--------+ + + + | ABO & RH TYPE | Urgent | 07/30/2015 | Acute myeloid | Results for this | | | | 3:35 PM | leukemia (AML), M4 | procedure are in the | | | | PST | (HCC) | results section. | + +--------+ + + + | PRODUCT - RED CELLS | Routin | 07/30/2015 | Acute myeloid | Results for this | | LEUKOREDUCED | e | 3:09 PM | leukemia (AML), M4 | procedure are in the | | | | PST | ([facility]) | results section. | + +--------+ + + + | CBC AND AUTO DIFF | Urgent | 07/30/2015 | Acute myeloid | Results for this | | | | 3:07 PM | leukemia (AML), M4 | procedure are in the | | | | PST | ([facility]) | results section. | + +--------+ + + + | MANUAL DIFFERENTIAL | Routin | 07/30/2015 | Acute myeloid | Results for this | | | e | 3:07 PM | leukemia (AML), M4 | procedure are in the | | | | PST | ([facility]) | results section. | + +--------+ + + + | CBC, WITH | Urgent | 07/30/2015 | Acute myeloid | Results for this | | DIFFERENTIAL | | 3:07 PM | leukemia (AML), M4 | procedure are in the | | | | PST | ([facility]) | results section. | + +--------+ + + + | TREATMENT PARAMETERS | Routin | 07/30/2015 | 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 | 2:46 PM | leukemia (AML), M4 | | | | | PST | ([facility]) | | + +--------+ + + + | TREATMENT PARAMETERS | Routin | 07/30/2015 | 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 | 2:46 PM | leukemia (AML), M4 | | | | | PST | ([facility]) | | + +--------+ + + + | TREATMENT PARAMETERS | Routin | 07/30/2015 | 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 | 2:46 PM | leukemia (AML), M4 | | | | | PST | (HCC) | | + +--------+ + + + | TREATMENT PARAMETERS | Routin | 07/30/2015 | 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 | 2:46 PM | leukemia (AML), M4 | | | | | PST | (HCC) | | + +--------+ + + + | TREATMENT PARAMETERS | Routin | 07/30/2015 | 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 | 2:46 PM | leukemia (AML), M4 | | | | | PST | (HCC) | | + +--------+ + + + | NURSING | Routin | 07/30/2015 | Acute myeloid | | | COMMUNICATION #3 - | e | 2:46 PM | leukemia (AML), M4 | | | [place] | | PST | (HCC) | | + +--------+ + + + | NURSING | Routin | 07/30/2015 | Acute myeloid | | | COMMUNICATION #2 - | e | 2:46 PM | leukemia (AML), M4 | | | [place] | | PST | (HCC) | | + +--------+ + + + | NURSING | Routin | 07/30/2015 | Acute myeloid | | | COMMUNICATION #1 - | e | 2:46 PM | leukemia (AML), M4 | | | [place] | | PST | (HCC) | | + +--------+ + + + | TREATMENT PARAMETERS | Routin | 07/30/2015 | Acute myeloid | | | #1 - [place] | e | 2:46 PM | leukemia (AML), M4 | | | | | PST | (HCC) | | + +--------+ + + + | TREATMENT PARAMETERS | Routin | 07/30/2015 | Acute myeloid | | | #1 - [place] | e | 2:46 PM | leukemia (AML), M4 | | | | | PST | (HCC) | | + +--------+ + + + documented in this encounter Results ANTIBODY SCREEN (07/30/2015 3:35 PM PST) + + + + + [...] [facility] | [address] | [place] [address] | | | SERVICES, | [address] | | | | TRANSFUSION MEDICINE | | | | + + + + + ABO & RH TYPE (07/30/2015 3:35 PM PST) + + + + + [...] | + + + + + | [facility] | [address] | [place] [address] | | | SERVICES, | [address] | | | | TRANSFUSION MEDICINE | | | | + + + + + PRODUCT - RED CELLS LEUKOREDUCED (07/30/2015 3:09 PM PST) + + + + + [...] + + + + | PRODUCT | [id number] | | [facility] | | | UNIT [...] + + + | UNIT RH | NEG | | [facility] | | | | [...] + + + + | EXPIRATION | [id number] | | [facility] | | | DATE | | | DEPARTMENT | | | | | | OF | | | | | | PATHOLOGY | | + + + + + + | BLOOD TYPE | 0600 | | [facility] | | | BARCODE | | | DEPARTMENT | | | | | | OF | | | | | | PATHOLOGY | | + + + + + + | BLOOD | [id number] | | [facility] | | | PRODUCT [...] | + + + + + | [facility] DEPARTMENT OF | [address] | [place] [address] | | | PATHOLOGY | [address] | | | + + + + + MANUAL DIFFERENTIAL (07/30/2015 3:07 PM PST) + + + + + + | Component | Value | Ref Range | Performed | Pathologist | | | | | At | Signature | + + + + + + | NEUTROPHIL% | 16.3 (L) | 50.0 - 70.0 % | [facility] | | | | | | LABORATORY | | | | | | SERVICES, | | | | | | CORE | | + + + + + + | LYMPHOCYTE% | 26.7 | 18.0 - 42.0 % | [facility] | | | | | | LABORATORY | | | | | | SERVICES, | | | | | | CORE | | + + + + + + | MONOCYTE % | 50.0 (H) | 3.5 - 9.0 [...] + + + + + + | BANDS % | 0.0 | 0.0 - 10.0 % | [facility] | | | | | | LABORATORY | | | | | | SERVICES, | | | | | | CORE | | + + + + + + | IG% | 7.0 (H)Comment: Immature | 0.0 - 0.6 % [...] | | | | | | neutrophil count except | | | | | | in neonates <=60 days | | | | | | old where bands are | | | | | | reported separately. | | | | + + + + + + | ATYPICAL | 0.0 | 0.0% % | [facility] | | | CELL% | | | LABORATORY | | | | | | SERVICES, | | | | | | CORE | | + + + + + + | NEUTROPHIL | 0.11 (L) | 1.80 - 7.70 | [facility] | | | # | | K/cu mm | LABORATORY | | | | | | SERVICES, | | | | | | CORE | | + + + + + + | LYMPHOCYTE# | 0.18 (L) | 1.00 - 4.80 | [facility] | | | | | K/cu mm | LABORATORY | | | | | | SERVICES, | | | | | | CORE | | + + + + + + | MONOCYTE # | 0.33 | 0.10 - 0.90 | [facility] | [...] + + + + + + | BANDS # | 0.00 | 0.00 - 1.10 | [facility] | | | | | [...] + + + + | ATYPICAL | 0.00 | K/cu mm | [facility] | | | CELLS # | | | LABORATORY | | | | | | SERVICES, | | | | | | CORE | | + + + + + + | RBC | Normal | | [facility] | | | MORPHOLOGY | | | LABORATORY | | | | | | SERVICES, | | | | | | CORE | | + + + + + + + + | Specimen | + + | Blood - Blood | | (substance) | + + + + + | Narrative | Performed At | + + + | Some monocytes appear immature. Immature Granulocytes (IG) | [facility] | | include metamyelocytes, myelocytes and promyelocytes. Bands are not | LABORATORY | | included in the IG count. Bands are included in the neutrophil count | SERVICES, CORE | | except in neonates <=60 days old where bands are reported as part of | | | the manual differential. | | + + + + + + + + | Performing | Address | City/State/Zipcode | Phone Number | | Organization | | | | + + + + + | [facility] | [address] | [place] [address] | | | SERVICES, CORE | [address] | | | + + + + + CBC AND AUTO DIFF (07/30/2015 3:07 PM PST) + + + + + + | Component | Value | Ref Range | Performed | Pathologist | | | | | At | Signature | + + + + + + | WHITE CELL | 0.66 (L) | 4.40 - 11.00 | [facility] | | | COUNT | | K/cu mm | LABORATORY | | | | | | SERVICES, | | | | | | CORE | | + + + + + + | RED CELL | 2.55 (L) | 4.50 - 6.00 [...] + + + + | MCV | 79.6 (L) | 80.0 - 96.0 fL | [facility] | | | | | | LABORATORY | | | | | | SERVICES, | | | | | | CORE | | + + + + + + | MCHC | 35.0 | 33.0 - 35.5 | [facility] | | | | | g/dL | LABORATORY | | | | | | SERVICES, | | | | | | CORE | | + + + + + + | RDW SD | 32.9 (L) | 35.1 - 46.3 fL | [facility] | | | | | | LABORATORY | | | | | | SERVICES, | | | | | | CORE | | + + + + + + | PLATELET | 19 (L) | 150 - 400 K/cu | [facility] | | | COUNT | | mm | LABORATORY | | | | | | SERVICES, | | | | | | CORE | | + + + + + + | [facility] | 11.6 | 9.7 - 12.3 fL [...] [facility] | [address] | [place] [address] | | | SERVICES, CORE | [address] [...] | | | + +--------+ +------+------+------+ | alteplase (CATHFLO ACTIVASE) | Given | 07/30/19 | 2 mg | | | | injection 2 mg 2 mg, | | 16 4:05 | | | | | Intracatheter, NEEDED, | | PM PST | | | | | Starting Sun07/30/15 at 1558, | | | | | | | Until Sun07/30/15 at 2318, per | | | | | | | catheter protocol | | | | | | + +--------+ +------+------+------+ +---+---+ | | | +---+---+ + +-------+ +-------+---+---+ | diphenhydrAMINE (BENADRYL) | Given | 07/30/19 | 25 mg | | | | capsule 25 mg 25 mg, oral, EVERY | | 16 3:12 | | | | | 6 HOURS NEEDED, Starting Fri | | PM PST | | | | | 07/30/15 at 1509, Until Fri | | | | | | | 07/30/15 at 2318, allergic | | | | | | | reaction, as needed prior to | | | | | | | transfusion | | | | | | + +-------+ +-------+---+---+ +---+---+ | | | +---+---+ documented in this encounter"
--- OUTSIDE RECORDS SUMMARY | ~2019-05-17 | XMS | Encounter Summary ---
Demographics + + + | Address | [address] | | | [place] [address] | + + + | Home Phone [...] Team Providers + +------+ + | Care Telecom Analyst Name | Role | Phone | [...] Barry | | | | | | [address] | | | | | | Debi Burger Mailcode: | | | | | | [facility] [address] | | | | | | [place], | | | | | | [place] [address] | | | | | | [phone] | | | +--------+ + + + [...] [address] | | | | | | [place], [place] | | | | | | [address] | | | | | | [phone] | | | | | | | [...] | | | PDT | transplant ([facility]) | results section. | + +--------+ + + + | LIPID SET (TRIG, T | Routin | 09/17/2017 | S/P allogeneic | Results for this | | CHOL, HDL, CALC LDL) | e | 10:02 AM | bone marrow | procedure are in the | | | | PDT | transplant ([facility]) | results section. | [...] 7.3 | 6.1 - 7.9 g/dL | [facility] - | | | TOTAL, CMP | [...] ABELARDOAM | [address] | [place], [place] | | | RUTHIE CARTER OF CARE | [facility] | [address] | | | TESTS | | | [...] SORTO | [address] | [place], [place] | | | RUTHIE CARTER OF CARE | [address] | [address] | | | TESTS | | | [...] YESSICA LOZA | [address] | [place] [address] | | | SERVICES, CORE | [address] | | | + + + + + documented in this encounter Visit Diagnoses + + | Diagnosis | + + | 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
--- OUTSIDE RECORDS SUMMARY | ~2019-05-17 | XMS | Encounter Summary ---
Demographics + + + | Address | [address] | | | [place] [address] | + + + | Home Phone [...] Team Providers + +------+ + | Care Abstract Clerk Name | Role | Phone | [...] [address] | | | | | [place], [place] | [place], [place] | | | | | [address] | [address] | | | | | [phone] | [phone] | | | | | | | [...] 2018 | Visit | Malignancy | [address] | | | | | | [address] | | | | | | [place], [place] | | | | | | [address] | | | | | | [phone] | | | | | | | [...] | | + +---------+ + + | [facility] DEPARTMENT OF | | | | | RADIOLOGY | | | | + +---------+ + + documented in this encounter Visit Diagnoses Not on filedocumented in this encounter"
--- OUTSIDE RECORDS SUMMARY | ~2019-05-17 | XMS | Encounter Summary ---
Demographics + + + | Address | [address] | | | [place] [address] | + + + | Home Phone [...] Providers + +------+ + | Care Inspector And Adjuster [place] Head Name | Role | Phone | + +------+ + | Pending Pcp Addition | PCP | Unavailable | + +------+ + Reason for Visit + + + | Reason | Comments | + + + | Lab Draw | PICC | + + + | Intravenous infusion | Magnesium | + + + | Follow-up visit | Em Saunders | + + + Office Visit - [...] | | | | | achieved | [place], [place] | [facility] | | | | | remission | [address] | [place] | | | | | | Phone: | Pavilion | | | | | Procedures | [phone] | [place], [place] | | | | | Post BMT | Fax: | [address] | | | | | Auth to | [phone] | Phone: | | | | | included | | [phone] | | | | | facility, | | Fax: | | | | | diagnostics, | | [phone] | | | | | office | | | | | | | visits and | | | | | | | surgery | | | +--------+---------+ + + + + Encounter Details +--------+ + + + + | Date | Type | Department | Care Team | Description | +--------+ + + + + | 10/10/ | Clinical | Center for | | Lab Draw (PICC); | | 2015 | Support | Hematologic | | Intravenous infusion | | | Staff | [facility] | | (Magnesium); | | | | [address] | | Follow-up visit | | | | [place] Mailcode: | | (Em Saunders) | | | | [facility] [place] | | | | | | [place], | | | | | | [place] [address] | | | | | | [phone] | | | +--------+ + + + [...] | Blood Pressure | 125/81 | 10/11/2015 10:22 AM | | | | | PDT | | + + + + + | Pulse | 83 | 10/11/2015 10:22 AM | | | | | PDT | | + + + + + | Temperature | 36.9 C (98.5 F) | 10/11/2015 10:22 AM | | | | | PDT | | + + + + + | Respiratory Rate | 16 | 10/11/2015 10:22 AM | | | | | PDT | | + + + + + | Oxygen Saturation | 100% | 10/11/2015 10:22 AM | | | | | PDT | | + + + + + | Inhaled Oxygen | - | - | | | Concentration | | | | + + + + + | Weight | 76.1 kg (167 lb 12.8 | 10/11/2015 10:22 AM | | | | oz) | PDT | | + + + + + | Height | - | - | | + + + + + | Body Mass Index | 21.69 | 08/18/2015 4:35 PM | | | | | PST | | + + + + + documented in this encounter Progress Samantha Marcum RN - 10/11/2015 11:00 AM PDT INFUSION/TRANSFUSION NURSING NOTE Name: Khurram Diamond Leticia Date: 10/11/2015 Provider: Dr. Yari Garcia Khurram Kelly is a 25 y.o. male with Hx of primary refractory AML, currently d ay +45, s/p tBuCy conditioned MM URD SCT. Subjective: Pt reports eating well and drinking at least 2 liters of fluid a day. Pt denies fever, chills, difficulty urinating, cough, bleeding/bruising or rash. Pt has had difficult y sleeping well. Pt states he has had some stomach cramping but has had normal BMs. Pt has provider visit today and will follow up with Em Jasso NP regarding this. Past illnesses: Khurram has a past medical [...] risk for colon cancer. VAD Lab Draw: Neostar accessed per protocol. Good blood return noted. Appropriate waste discarded. Lab s drawn and sent. Neostar pulse flushed with 20 mL NS. Per infusion Plan: Chemistries: Last 72 Hours (or 3 results): Recent Labs 10/11/15 1021 10/11/15 1046 NA -- 141 K -- 4.1 CL -- 103 BICARB -- 25 BUN -- 15 CR -- 0.7 GLU -- 104* CA -- 9.4 MG -- 1.5* PO4 2.7 -- Magnesium Sulfate 4 gm in 100 mL NS infused over 2 hours per supportive care orders for a m agnesium level of 1.5 today 10/10 and 1.7 on 10/06. For infusion details, see SEP. Tacrolimus: Patient on Tacrolimus, states did not take today in anticipation of labs. Currently taking 1mg BID. Educated patient we will contact them later today regarding level. Post provider visit: Pt given hat and specimen cup to take home for C.diff Sample per Em Saunders NP. Pt educ ated about how to take sample and send back for processing. Pt discharged from clinic. Left clinic Ambulatory accompanied by spouse, Lenka. Next Appo intment in [facility] is on 10/14/15 at 10:45 am with Em Saunders PA-C. Samantha Swartz RN documented in this encounter Plan of [...] 2019 | Visit | Malignancy | [address] [facility] | | | | | | [address] | | | | | | [place], [place] | | | | | | [address] | | | | | | [phone] | | | | | | | | +--------+---------+ + + + documented as of this encounter Procedures + +--------+ + + + | Procedure Name | Priori | Date/Time | Associated Diagnosis | Comments | | | ty | | | | + +--------+ + + + | BMP + MAG, POC CHM | Urgent | 10/11/2015 | Acute myeloid | Results for this [...] + + | CBC+DIFF,POC | Urgent | 10/11/2015 | Acute myeloid | Results for this [...] + | CMV PCR | Urgent | 10/11/2015 | Acute myeloid | Results for this | | QUANTITATION, PLASMA | | 10:21 AM | leukemia (AML), M4 | procedure [...] + | LIVER SET | Urgent | 10/11/2015 | Acute myeloid | Results for this | | (AST,ALT,BILI | | 10:21 AM | leukemia (AML), M4 | procedure [...] + | TACROLIMUS, WHOLE | Urgent | 10/11/2015 | Acute myeloid | Results for this | | BLOOD | | 10:21 AM | leukemia (AML), M4 | procedure [...] + | PHOSPHORUS, PLASMA | Urgent | 10/11/2015 | Acute myeloid | Results for this | | | | 10:21 AM | leukemia (AML), M4 | procedure [...] + + | ASPERGILLUS | Urgent | 10/11/2015 | Acute myeloid | Results for this | | GALACTOMANNAN | | 10:21 AM | leukemia (AML), M4 | procedure are in the | | ANTIGEN, SERUM | | PDT | ([facility])- primary | results section. 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 | | | | | | (HCC) | | + +--------+ + + + | NURSING | Routin | 10/11/2015 | Acute myeloid | | | COMMUNICATION #3 - | e | 10:18 AM | leukemia (AML), M4 | | | [facility] | | PDT | ([facility])- primary | | | | | | induction failure | | + +--------+ + + + | TREATMENT PARAMETERS | Routin | 10/11/2015 | 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 | 10:18 AM | leukemia (AML), M4 | | | | | PDT | ([facility])- primary | | | | | | induction failure | | + +--------+ + + + | TREATMENT PARAMETERS | Routin | 10/11/2015 | 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 | 10:18 AM | leukemia (AML), 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 | | | | | | induction failure | | + +--------+ + + + | TREATMENT PARAMETERS | Routin | 10/11/2015 | 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 | 10:18 AM | leukemia (AML), M4 | | | | | PDT | ([facility])- primary | | | | | | induction failure | | + +--------+ + + + | TREATMENT PARAMETERS | Routin | 10/11/2015 | 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 | 10:18 AM | leukemia (AML), M4 | | | | | PDT | ([facility])- primary | | | | | | induction failure | | + +--------+ + + + | TREATMENT PARAMETERS | Routin | 10/11/2015 | 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 | 10:18 AM | leukemia (AML), M4 | | | | | PDT | ([facility])- primary | | | | | | induction failure | | + +--------+ + + + | NURSING | Routin | 10/11/2015 | Acute myeloid | | | COMMUNICATION #2 - | e | 10:18 AM | leukemia (AML), M4 | | | [facility] | | PDT | (HCC)- primary | | | | | | induction failure | | + +--------+ + + + | NURSING | Routin | 10/11/2015 | Acute myeloid | | | COMMUNICATION #1 - | e | 10:18 AM | leukemia (AML), M4 | | | [facility] | | PDT | (HCC)- primary | | | | | | induction failure | | + +--------+ + + + | TREATMENT PARAMETERS | Routin | 10/11/2015 | Acute myeloid | | | #1 - [place] | e | 10:18 AM | leukemia (AML), 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 | | | | | | induction failure | | + +--------+ + + + | TREATMENT PARAMETERS | Routin | 10/11/2015 | Acute myeloid | | | #1 - [facility] | e | 10:18 AM | leukemia (AML), M4 | | | | | PDT | ([facility])- primary | | | | | | induction failure | | + +--------+ + + + documented in this encounter Results BMP + MAG, POC CHM (10/11/2015 10:46 AM PDT) + +---------+ + + [...] + + + | BUN, POC | 15 | 6 - 20 mg/dL | [facility] [...] + + + | LDH, POC | 232 (H) | 0 - 206 U/L | [facility] - | | | | | | [facility] | | | | | | RUTHIE CARTER | | | | | | OF CARE | | | | | | TESTS | | + +---------+ + + + | MAGNESIUM, | 1.5 (L) | 1.8 - 2.5 mg/dL | [...] [place] | [address] | [place], [place] | | | RUTHIE CARTRE OF KRISTA | [facility] | [address] | | | TESTS | | | | + + + + + CBC+DIFF,POC (10/11/2015 10:45 AM PDT) + + + + + [...] + + + | HGB POC | 11.2 (L) | 13.5 - 17.5 | [facility] - | | | | | g/dL | [place] | | | | | | [facility] POINT | | | | | | OF CARE | | | | | | TESTS | | + + + + + + | HCT POC | 33.9 (L) | 41.0 - 53.0 % | [facility] - | | | | | | [facility] | | | | | | RUTHIE CARTER | | | | | | OF CARE | | | | | | TESTS | | + + + + + + | MCV POC | 96.0 | 80.0 - 96.0 fL | [facility] - | | | | | | [place] | | | | | | RUTHIE CARTER | | | | | | OF CARE | | | | | | TESTS | | + + + + + + | MCH POC | 31.7 | 28.5 - 32.3 pg | [facility] [...] + + | RDW SD, POC | 62.0 (H) | 35.1 - 46.3 fL | [facility] - | | | | | | [place] | | | | | | RUTHIE CARTER | | | | | | OF CARE | | | | | | TESTS | | + + + + + + | PLT POC | 165 | 150 - 400 | [facility] - [...] + + + + | NEUTROPHIL% | 83.7 (H) | 50.0 - 70.0 % | [...] + + | MONO %, POC | 7.6 | 3.5 - 9.0 % | [facility] [...] + + + + | NEUTROPHIL# | 10.7 (H) | 1.8 - 7.7 | [facility] [...] S[facility] | [address] | [place], [place] | | | [facility] POINT OF CARE | [address] | [address] | | | TESTS | | | | + + + + + LIVER SET (AST,ALT,BILI TOTAL,BILI DIRECT,ALK PHOS,ALB,PROT TOTAL) (10/11/2015 10:21 AM PDT ) + +---------+ + + [...] +---------+ + + + | AST(SGOT) | 22 | <=41 U/L | [facility] | | [...] [facility] | [address] | [place] [address] | | | SERVICES, CORE | [address] | | | + + + + + PHOSPHORUS, PLASMA (10/11/2015 10:21 AM PDT) + +-------+ + + + | Component | Value | Ref Range | Performed | Pathologist | | | | | At | Signature | + +-------+ + + + | PHOSPHORUS, | 2.7 | 2.4 - 4.7 mg/dL | [facility] [...] [facility] | [address] | [place] [address] | | | SERVICES, CORE | [address] | | | + + + + + TACROLIMUS, WHOLE BLOOD (10/11/2015 10:21 AM PDT) + +-------+ + + + | Component | Value | Ref Range | Performed | Pathologist | | | | | At | Signature | + +-------+ + + + | TACROLIMUS | 7.1 | 5.0 - 15.0 | [facility] | [...] + + + + + | [facility] | [address] | [place] [address] | | | SERVICES, SPECIAL | [address] | | | | IMM + COAG | | | | + + + + + CMV PCR QUANTITATION, PLASMA (10/11/2015 10:21 AM PDT) + + + + + [...] | characteristics determined by the [facility] | | | [facility]. It has not been cleared or approved by | | | the Food and Drug Administration. FDA approval is not required for | | | clinical use of this test, and therefore validation was done as | | | required under the requirements of the Clinical Laboratory Improvement | | | Act of 1988. The [facility] | | | Diagnostic Center is a fully licensed and/or accredited clinical | | | laboratory under CLIA, CAP, and the [facility]. | | + + + + + + + + | Performing | Address | City/State/[facility] | Phone Number | | Organization | | | | + + + + + | [facility] | [address] | [place] [address] | | | DIAGNOSTIC | [address] | | | | LABORATORIES | | | | + + + + + ASPERGILLUS GALACTOMANNAN ANTIGEN, SERUM (10/11/2015 10:21 AM PDT) + + + + + [...] + + + | ASP GAL | 0.10 | <=0.49 Index | [facility] | | [...] YESSICA LOZA | [address] | [place] [address] | | | SERVICES, SPECIAL | [address] [...] 10 unit/mL IV flush | Given | 10/11/19 | 50 Units | | | | syringe 50 Units 50 Units, | | 16 12:57 | | | | | Intracatheter, NEEDED, | | PM PDT | | | | | Starting 10/11/15 at 1256, | | | | | | | Until 10/12/15 at 0044, line | | | | | | | patency | | | | | | + +--------+ + +------+------+ +-------+ + +---+---+ | Given | 10/11/19 | 50 Units | | | | | 16 12:56 | | | | | | PM PDT | | | | +-------+ + +---+---+ | Given | 10/11/19 | 50 Units | | | | | 16 12:55 | | | | | | PM PDT | | | | +-------+ + +---+---+ +---+---+ | | | +---+---+ + +---------+ +-----+---+---+ | magnesium sulfate in water IV | New Bag | 10/11/19 | 2 g | | | | (RTU) 2 g 2 g, intravenous, | | 16 10:45 | | | | | ONCE, 1 dose, 10/11/15 at 1030 | | AM PDT | | | | + +---------+ +-----+---+---+ +---+---+ | | | +---+---+ + +---------+ +-----+---+---+ | magnesium sulfate in water IV | New Bag | 10/11/19 | 2 g | | | | (RTU) 2 g 2 g, intravenous, | | 16 11:35 | | | | | ONCE, 1 dose, 10/11/15 at 1115 | | AM PDT | | | | + +---------+ +-----+---+---+ +---+---+ | | | +---+---+ documented in this encounter"
--- OUTSIDE RECORDS SUMMARY | ~2019-05-17 | XMS | Encounter Summary ---
Demographics + + + | Address | [address] | | | [place] [address] | + + + | Home Phone [...] Providers + +------+ + | Care Head Machinist Name | Role | Phone | + +------+ + | Pending Pcp Addition | PCP | Unavailable | + +------+ + Encounter Details +--------+ + + + + | Date | Type | Department | Care Team | Description | +--------+ + + + + | 07/02/ | Manager Of Digital | Center for | [place], | Acute myeloid | | 2015 | | Hematologic | [facility] | leukemia (AML), M4 | | | | [facility] | [address] | (HCC) (Primary Dx) | | | | [address] | [place], | | | | | Wally Burger Mailcode: | [place] [address] | | | | | [facility] | [phone] | | | | | [place], | | | | | | [place] [address] | | | | | | [phone] | | | +--------+ + + + [...] 2019 | Visit | Malignancy | [address] [facility] | | | | | | [address] | | | | | | [place], [place] | | | | | | [address] | | | | | | [phone] | | | | | | | | +--------+---------+ + + + documented as of this encounter Results PHIL TRIANA (07/12/2015 3:33 PM PST) + +---------+ + + + [...] +---------+ + + + | POTASSIUM, | 3.5 | 3.4 - 5.0 | [facility] - [...] + + + | LDH, POC | 244 H | 0 - 206 U/L | [facility] [...] + + + + + | OHANA SORTO | [address] | [place], [place] | | | [facility] | [address] | [address] | | | TESTS | | | | + + + + + URIC ACID, PLASMA (07/12/2015 3:25 PM PST) + +---------+ + + + [...] | + + + + + | [facility] | [address] | [place] [address] | | | SERVICES, CORE | [address] | | | + + + + + LIVER SET (AST,ALT,BILI TOTAL,BILI DIRECT,ALK PHOS,ALB,PROT TOTAL) (07/12/2015 3:25 PM PST ) + +---------+ + + [...] +---------+ + + + | AST(SGOT) | 30 | <=41 U/L | [facility] | | | | | | LABORATORY | | | | | | SERVICES, | | | | | | CORE | | + +---------+ + + + | ALT (SGPT) | 59 | <=60 U/L | [facility] | | [...] + + + | [facility] | [address] | [place] [address] | | | SERVICES, CORE | [address] | | | + + + + + PHOSPHORUS, PLASMA (07/12/2015 3:25 PM PST) + +-------+ + + + | Component | Value | Ref Range | Performed | Pathologist | | | | | At | Signature | + +-------+ + + + | PHOSPHORUS, | 4.5 | 2.4 - 4.7 mg/dL | [facility] [...] YESSICA LOZA | [address] | [place] [address] | | | SERVICES, CORE | [address] | | | + + + + + documented in this encounter Visit Diagnoses + + | Diagnosis | + + | Acute myeloid leukemia (AML), M4 (HCC) - Primary | + + documented in this encounter"
--- OUTSIDE RECORDS SUMMARY | ~2019-05-17 | XMS | Encounter Summary ---
Demographics + + + | Address | [address] | | | [place] [address] | + + + | Home Phone [...] Providers + +------+ + | Care Gas Appliance Repairer Name | Role | Phone | [...] | +--------+ + + + + | 01/18/ | Diagnostic | Center for | | [...] | | | | | | [facility] | | | | | | [place] [address] | | | | | | [phone] | | | +--------+ + + + [...] this encounter Progress Notes Lincoln Hermosillo - 01/18/2017 8:00 AM PDTLeft AC accessed with a 23 gauge butterfly needle. Labs drawn and sent. Tolerated procedure well. Site dressed with sterile gauze and Coban. Patient scheduled today with Dr. Garcia. Lincoln Hermosillo MA [...] 2019 | Visit | Malignancy | [address] [facility] | | | | | | [address] | | | | | | [place], [place] | | | | | | [address] | | | | | | [phone] | | | | | | | | +--------+---------+ + + + documented as of this encounter Procedures + +--------+ + + + | Procedure Name | Priori | Date/Time | Associated Diagnosis | Comments | | | ty | | | | + +--------+ + + + | CMP, POC (BMP+LFT) | Routin | 01/18/2017 | S/P allogeneic | Results for this | | | e | 8:54 AM | bone marrow | procedure are in the | | | | PDT | transplant (HCC) | results section. | + +--------+ + + + | CBC+DIFF,POC | Routin | 01/18/2017 | S/P allogeneic | Results for this | | | e | 8:50 AM | bone marrow | procedure are in the | | | | PDT | transplant (HCC) | results section. | + +--------+ + + + | LIVER SET | Routin | 01/18/2017 | Acute | Results for this | | (AST,ALT,BILI | e | 8:34 AM | myelomonocytic | procedure are in the | | TOTAL,BILI | | PDT | leukemia in | results section. | | DIRECT,ALK | | | remission (HCC) | | | PHOS,ALB,PROT TOTAL) | | | | | + +--------+ + + + | TACROLIMUS, WHOLE | Routin | 01/18/2017 | Acute | Results for this | | BLOOD | e | 8:34 AM | myelomonocytic | procedure are in the | | | | PDT | leukemia in | results section. | | | | | remission (HCC) | | + +--------+ + + + | PHOSPHORUS, PLASMA | Routin | 01/18/2017 | Acute | Results for this | | | e | 8:34 AM | myelomonocytic | procedure are in the | | | | PDT | leukemia in | results section. | | | | | remission (HCC) | | + +--------+ + + + | BILIRUBIN DIRECT | Routin | 01/18/2017 | Acute | Results for this | | | e | 8:34 AM | myelomonocytic | procedure are in the | | | | PDT | leukemia in | results section. | | | | | remission (HCC) | | + +--------+ + + + | URIC ACID, PLASMA | Routin | 01/18/2017 | Acute | Results for this | | | e | 8:34 AM | myelomonocytic | procedure are in the | | | | PDT | leukemia in | results section. | | | | | remission (HCC) | | + +--------+ + + + | MAGNESIUM, PLASMA | Routin | 01/18/2017 | S/P allogeneic | Results for this | | | e | 8:34 AM | bone marrow | procedure are in the | | | | PDT | transplant (HCC) | results section. | + +--------+ + + + | LDH TOTAL, PLASMA | Routin | 01/18/2017 | Acute | Results for this | | | e | 8:34 AM | myelomonocytic | procedure are in the | | | | PDT | leukemia in | results section. | | | | | remission (HCC) | | + +--------+ + + + documented in this encounter Results CMP, POC (BMP+LFT) (01/18/2017 8:54 AM PDT) + +---------+ + + + [...] + + + | ALK PHOS, | 65 | 41 - 99 U/L | [facility] - | | | CMP POC | | | [facility] | | | | | | RUTHIE CARTER | | | | | | OF CARE | | | | | | TESTS | | + +---------+ + + + | ALT, CMP | 152 (H) | 0 - 60 U/L | [facility] - | | | POC | | | [facility] | | | | | | RUTHIE CARTER | | | | | | OF CARE | | | | | | TESTS | | + +---------+ + + + | AST, CMP | 77 (H) | 0 - 41 U/L | [...] +---------+ + + + | PROTEIN | 6.2 | 6.1 - 7.9 g/dL | [facility] [...] [facility] | [address] | [place], [place] | | | RUTHIE CARTER OF CARE | [facility] | [address] | | | TESTS | | | | + + + + + CBC+DIFF,POC (01/18/2017 8:50 AM PDT) + + + + + + | Component | Value | Ref Range | Performed | Pathologist | | | | | At | Signature | + + + + + + | WBC POC | 7.8 | 3.5 - 10.8 | [facility] - | | | | | 10*3/uL | [facility] | | | | | | RUTHIE CARTER | | | | | | OF CARE | | | | | | TESTS | | + + + + + + | RBC POC | 4.02 (L) | 4.50 - 6.00 | [facility] [...] + + + | MCV POC | 100.2 (H) | 80.0 - 96.0 fL | [...] + + + | MCHC POC | 32.8 | 33.0 - 35.5 | [facility] - [...] + + + + | NEUTROPHIL% | 65.5 | 50.0 - 70.0 % | [facility] - | | | POC | | | [place] | | | | | | RUTHIE CARTER | | | | | | OF CARE | | | | | | TESTS | | + + + + + + | LYMPH% POC | 22.2 | 18 - 42 % | [facility] - | | | | | | [place] | | | | | | RUTHIE CARTER | | | | | | OF CARE | | | | | | TESTS | | + + + + + + | MONO %, POC | 10.3 (H) | 3.5 - 9.0 % | [...] + + + + | NEUTROPHIL# | 5.1 | 1.8 - 7.7 | [facility] - | | | POC | | 10*3/uL | [facility] | | | | | | [facility], POINT | | | | | | OF CARE | | | | | | TESTS | | + + + + + + | LYMPH# POC | 1.7 | 1.0 - 4.8 | [facility] - [...] [facility] | [address] | [place], [place] | | | [facility] POINT OF CARE | [address] | [id number] | | | TESTS | | | | + + + + + TACROLIMUS, WHOLE BLOOD (01/18/2017 8:34 AM PDT) [...] | Test performed by immunoassay using [employer] i2000. . | [facility] | | Samples [...] + + | Performing | Address | City/State/Rustcode | Phone Number | | Organization | | | | + + + + + | [facility] | [address] | [place] [address] | | | SPECIAL KO[place] | [address] [...] | + + + + + | [facility] | [address] | [place] [address] | | | SERVICES, CORE | PARK [...] [facility] | [address] | [place] [address] | | | SERVICES, INDRA | WALLY [...] [facility] | [address] | [place] [address] | | | SERVICES, CORE | PARK [...] | + + + + + | [facility] | [address] | [place] [address] | | | SERVICES, CORE | [address] [...] [facility] | [address] | [place] [address] | | | SERVICES, CORE | [address] | | | + + + + + MAGNESIUM, PLASMA (01/18/2017 8:34 AM PDT) + +-------+ + + + | Component | Value | Ref Range | Performed | Pathologist | | | | | At | Signature | + +-------+ + + + | MAGNESIUM,P | 2.2 | 1.8 - 2.5 mg/dL [...] | + + + + + | [facility] | [address] | [place] [address] | | | SERVICES, CORE | [address] [...]
--- OUTSIDE RECORDS SUMMARY | ~2019-05-17 | XMS | Encounter Summary ---
Demographics + + + | Address | [address] | | | [place] [address] | + + + | Home Phone [...] Providers + +------+ + | Care Manager Of Program Name | Role | Phone | + [...] | ic leukemia, | [address] | [address] | | | | | not having | [address] | Mailcode: | | | | | achieved | [place], [place] | [facility] | | | | | remission | [address] | [facility] | | | | | | Phone: | Pavilion | | | | | Procedures | [phone] | [place], [place] | | | | | Post BMT | Fax: | [address] | | | | | Auth to | [phone] | Phone: | | | | | included | | [phone] | | | | | facility, | | Fax: | | | | | diagnostics, | | [phone] | | | | | office | [...] | | | | | | [facility] | | | | | | Pavilion [place], | | | | | | [place] [address] | | | | | | [phone] | | | +--------+ + + + [...] encounter Progress Notes Mini Disla MA - 12/28/2016 4:30 PM PDTVaccines given by protocol by [...] | Visit | Malignancy | [address] | | | | | | [address] | | | | | | [place], [place] | | | | | | [address] | | | | | | [phone] | | | | | | | | +--------+---------+ + + + documented as of this encounter Procedures + +--------+ + + + | Procedure Name | Priori | Date/Time | Associated Diagnosis | Comments | | | ty | | | | + +--------+ + + + | GUIDELINES FOR | Routin | 12/28/2016 | S/P allogeneic | | | ORDERING #4 - BEACON | e | 8:40 AM | bone marrow | | | | | PDT | transplant (HCC) | | + +--------+ + + + documented in this encounter Results MAGNESIUM, PLASMA (01/18/2017 8:34 AM PDT) + [...] | + + + + + | [facility] | [address] | [place] [address] | | | INDRA SHARIF | [address] [...] | | | + +--------+ +--------+------+---------+ | haemophilus b polysac-tetanus | Given | 12/29/19 | 0.5 mL | | Right | | toxoid (ActHIB) injection 0.5 mL | | 17 10:27 | | | Deltoid | | 0.5 mL, intramuscular, ONCE, 1 | | AM PDT | | | | | dose, Lupe 12/28/16 at 0845 | | | | | | + +--------+ +--------+------+---------+ +---+---+ | | | +---+---+ + +-------+ +------+---+---------+ | hepatitis B vaccine (ENGERIX-B) | Given | 12/29/19 | 1 mL | | Left | | 20 mcg/mL injection 1 mL 1 mL, | | 17 10:25 | | | Deltoid | | intramuscular, ONCE, 1 dose, Lupe | | AM PDT | | | | | 12/28/16 at 0900 | | | | | | + +-------+ +------+---+---------+ +---+---+ | | | +---+---+ + +-------+ +--------+---+---------+ | human papillomavirus vaccine | Given | 12/29/19 | 0.5 mL | | Left | | (9-valent) (GARDASIL 9) injection | | 17 10:26 | | | Deltoid | | 0.5 mL 0.5 mL, intramuscular, | | AM PDT | | | | | ONCE, 1 dose, Lupe 12/28/16 at 0900 | | | | | | + +-------+ +--------+---+---------+ +---+---+ | | | +---+---+ + +-------+ +--------+---+---------+ | meningococcal group B vaccine | Given | 12/29/19 | 0.5 mL | | Right | | (BEXSERO) injection 0.5 mL 0.5 | | 17 10:29 | | | Deltoid | | mL, intramuscular, ONCE, 1 dose, | | AM PDT | | | | | Lupe 12/28/16 at 0845 | | | | | | + +-------+ +--------+---+---------+ +---+---+ | | | +---+---+ + +-------+ +--------+---+---------+ | meningococcal | Given | 12/29/19 | 0.5 mL | | Right | | polysaccharide-dipheria toxoid | | 17 10:28 | | | Deltoid | | conjugate vaccine (MENACTRA) | | AM PDT | | | | | injection 0.5 mL 0.5 mL, | | | | | | | intramuscular, ONCE, 1 dose, Lupe | | | | | | | 12/28/16 at 0845 | | | | | | + +-------+ +--------+---+---------+ +---+---+ | | | +---+---+ + +-------+ +--------+---+--------+ | poliovirus vaccine | Given | 12/29/19 | 0.5 mL | | Right | | (inactivated) (IPOL) injection | | 17 10:24 | | | Arm | | 0.5 mL 0.5 mL, subcutaneous, | | AM PDT | | | | | ONCE, 1 dose, Lupe 12/28/16 at 0845 | | | | | | + +-------+ +--------+---+--------+ +---+---+ | | | +---+---+ + +-------+ +--------+---+---------+ | tetanus-diphtheria toxoids | Given | 12/29/19 | 0.5 mL | | Left | | (adult) (TENIVAC,DECAVAC,Td) | | 17 10:26 | | | Deltoid | | injection 0.5 mL 0.5 mL, | | AM PDT | | | | | intramuscular, ONCE, 1 dose, Lupe | | | | | | | 12/28/16 at 0845 | | | | | | + +-------+ +--------+---+---------+ +---+---+ | | | +---+---+ documented in this encounter"
--- OUTSIDE RECORDS SUMMARY | ~2019-05-17 | XMS | Encounter Summary ---
Demographics + + + | Address | [address] | | | [place] [address] | + + + | Home Phone [...] Team Providers + +------+ + | Care Subassembly Supervisor Name | Role | Phone | [...] | | | [address] | [facility] | | | | | Mailcode: [facility] | [place] [address] | | | | | [place] | | | | | | [address] [place], [place] | | | | | | [address] | | | | | | [phone] | | | +--------+ + + + [...] Rd | | | | | | [place], [place] | | | | | | [address] | | | | | | [phone] | | | | | | | [...] | + +-------+ + + + | BCH81-40% | 4.92 | 4.94 L/sec | [facility] | | | PRE | | | SPECIAL | | | | | | DIAGNOSTICS | | | | | | - | | | | | | PULMONARY | | | | | | FUNCTION | | + +-------+ + + + | IMA92-60% | 99 | % | [facility] | [...] YESSICA HARPER | [address] | [place], [place] | | | DIAGNOSTICS - | [address] | [address] | | | PULMONARY FUNCTION | | [...]
--- OUTSIDE RECORDS SUMMARY | ~2019-05-17 | XMS | Encounter Summary ---
Demographics + + + | Address | [address] | | | [place] [address] | + + + | Home Phone [...] Team Providers + +------+ + | Care Circulation Man Name | Role | Phone | [...] | Ophthalmology | Diagnoses | Jose, | Sasha | | | | | | Yari Jones MD | Sabrina Saucedo MD | | | | | Immunocompro | [address] | [address] | | | | | mised state | [address] [place] | Fab | | | | | associated | [address] | Kadeem | | | | | with stem | [place], [place] | [place] | | | | | cell | [address] | [address] | | | | | transplant | Phone: | Phone: | | | | | ([facility]) S/P | [phone] | [phone] | | | | | allogeneic | Fax: | Fax: | | | | | bone marrow | [phone] | [phone] | | | | | transplant | | | | | | | ([facility]) Red | | | | | | | eye GVHD | | | | | | | (graft | | | | | | | versus host | | | | | | | disease) | | | | | | | (HCC) | | | | | | | Procedures | | | | | | | CONSULT TO | | | | | | | ADULT | | | | | | | OPHTHALMOLOG | | | | | | | Y | | | +--------+--------+ + + + + Encounter Details +--------+ + + + + | Date | Type | Department | Care Team | Description | +--------+ + + + + | 09/13/ | Telephone | Center for | Yari Garcia MD | | | 2019 | | Hematologic | [address] | | | | | Malignancies at | [address] | | | | | [place] | [place], [place] | | | | | [address] | [address] | | | | | [address] Mailcode: | [phone] | | | | | [facility] | | | | | | [place], | | | | | | [place] [address] | | | | | | [phone] | | | +--------+ + + + [...] Rd | | | | | | [place], [place] | | | | | | [address] | | | | | | [phone] | | | | | | | | +--------+---------+ + + + documented as of this encounter Visit Diagnoses + + | Diagnosis | + + | 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
--- OUTSIDE RECORDS SUMMARY | ~2019-05-17 | XMS | Encounter Summary ---
Demographics + + + | Address | [address] | | | [place] [address] | + + + | Home Phone [...] Providers + +------+ + | Care Manager User Interface Name | Role | Phone | + +------+ + | Zayda Hinton | PCP | | + +------+ + Encounter Details +--------+ + + + + | Date | Type | Department | Care Team | Description | +--------+ + + + + | 09/11/ | Pharmacy | Specialty Pharmacy | | | | 2015 | Visit | Services [address] | | | | | | [address] | | | | | | [place], [place] | | | | | | [address] | | | | | | [phone] | | | +--------+ + + + [...] Rd | | | | | | [place], [place] | | | | | | [address] | | | | | | [phone] | | | | | | | | +--------+---------+ + + + documented as of this encounter Visit Diagnoses Not on filedocumented in this encounter"
--- OUTSIDE RECORDS SUMMARY | ~2019-05-17 | XMS | Encounter Summary ---
Demographics + + + | Address | [address] | | | [place] [address] | + + + | Home Phone [...] Team Providers + +------+ + | Care Highway Construction Inspector Name | Role | Phone | [...] | | | | | ([facility]) | [place], [place] | [facility] | | | | | Procedures | [address] | for Health | | | | | CONSULT TO | Phone: | and Healing, | | | | | REPRODUCTIVE | [phone] | Building [address], | | | | | MEDICINE | Fax: | 10th Floor | | | | | | [phone] | [facility] [place] | | | | | | | [address] | | | | | | | Phone: | | | | | | | [phone] | | | | | | | Fax: | | | | | | | [phone] | +--------+--------+ + + + + Encounter Details +--------+ + + + + | Date | Type | Department | Care Team | Description | +--------+ + + + + | 12/07/ | MyChart | [facility] | Yari Garcia MD | fertility quesiton | | 2017 | Encounter | Hematologic | [address] | | | | | Malignancies at | [address] | | | | | [address] [place] | [place], [place] | | | | | [address] | [address] | | | | | [address] Mailcode: | [phone] | | | | | [facility] [address] | | | | | | [facility] [place], | | | | | | [place] [address] | | | | | | [phone] | | | +--------+ + + + [...] Rd | | | | | | [place], [place] | | | | | | [address] | | | | | | [phone] | | | | | | | [...]
--- OUTSIDE RECORDS SUMMARY | ~2019-05-17 | XMS | Encounter Summary ---
Demographics + + + | Address | [address] | | | [place] [address] | + + + | Home Phone [...] Team Providers + +------+ + | Care Physiatrist Name | Role | Phone | + +------+ + | Zayda Hinton | PCP | | + +------+ + Reason for Visit + + + | Reason | Comments | + + + | Follow-up visit | | + + + Encounter Details +--------+---------+ + + + | Date | Type | Department | Care Team | Description | +--------+---------+ + + + | 11/18/ | Office | Orthopaedics at | Lobo Jeffers, | Pain of right hip | | 2019 | Visit | [facility] [address] | MD [address] | joint (Primary Dx) | | | | Ave Mailcode: [facility] | [address] | | | | | [facility] | [place], [place] | | | | | and Healing, | [address] | | | | | Building | [phone] | | | | | Floor [place], [place] | | | | | | [address] | | | | | | [phone] | | | +--------+---------+ + + + [...] | 75.6 kg (166 lb 10.7 | 11/18/2018 2:11 PM | | | | oz) | PDT | | + + + + + | Height | 188.7 cm (6' 2.29") | 11/18/2018 2:11 PM | | | | | PDT | | + + + + + | Body Mass Index | 21.23 | 11/18/2018 2:11 PM | | | | | PDT | | + + + + + documented in this encounter Progress Notes Lobo Jeffers MD - 11/18/2018 3:00 PM PDTDiagnosis: 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 Since his last visit he has had a signific ant increase in pain in his right hip. He is limited in his ability to ambulate secondary t o the hip pain. He is also noticed a significant reduction in his hip range of motion. He is concerned that something is changed in his hip. He describes his pain as being located p rimarily in his groin but occasionally radiating to his knee. It is activity related. It m akes it very difficult for him to work. Exam: Bilateral hips have a normal overall appearance. The right hip has no pain over the greate r trochanter. He is able to flex to nearly 120 degrees. He has approximately 15 degrees of external rotation and no internal rotation. He is quite painful with range of motion testi ng. He has no lower extremity edema. There is a posterior tibial pulse. He has active ank le plantarflexion and dorsiflexion. There is sensation intact in the medial and lateral rosa f. Imaging: X-rays demonstrate a well-seated total hip arthroplasty on the left hip. There is a large volume collapse of the right femoral head with AVN. 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 He already has a left hip replaced a nd it seems to be doing quite well. He is now quite painful on the right hip. His imaging studies demonstrate significant collapse of the right femoral head. He is an excellent cand idate for a total hip arthroplasty. I will place him on the surgical schedule and get him a rranged. documented in this encounter Plan of Treatment [...] 2019 | Visit | Malignancy | [address] | | | | | | [facility] | | | | | | [place], [place] | | | | | | [address] | | | | | | [phone] | | | | | | | | +--------+---------+ + + + documented as of this encounter Results X-RAY HIP 2 VIEWS RIGHT W/ PELVIS 1 VIEW (11/18/2018 2:18 PM PDT) + + | Specimen | + + | | + + + + + | Narrative | Performed At | + + + | EXAM: HIP 2 VIEWS RIGHT W/ PELVIS 1 VIEW HISTORY: hip pain | [facility] | | COMPARISON: 04/02/2017 FINDINGS: The total left hip | RADIOLOGY VOICE | | arthroplasty is intact without evidence of hardware failure or | RECOGNITION 2 | | loosening. Right femoral head osteonecrosis has progressed since | | | prior, with subchondral collapse, sclerosis and femoral head | | | remodeling. There is new associated spurring of the right hip joint | | | without significant narrowing. The sacroiliac joints are maintained. | | | IMPRESSION: Interval progression of right femoral head | | | osteonecrosis with new subchondral collapse and associated | | | degenerative changes. Intact left total hip arthroplasty. I | | | have personally reviewed the images and, if necessary, edited the | | | report. I agree with the report as now presented. Final | | | signature: Sharon Padilla MD 11/18/2018 3:44 PM Preliminary: | | | Corina Dickens MD Dictation initiated: Corina Dickens MD | | | 11/18/2018 2:57 PM | | + + + + + | Procedure Note | + + | Service Account, Radiant Res In Interface - 11/18/2018 3:45 PM PDT EXAM: HIP 2 VIEWS | | RIGHT W/ PELVIS 1 VIEW HISTORY: hip pain COMPARISON: 04/02/2017 FINDINGS: The total left | | hip arthroplasty is intact without evidence of hardware failure or loosening. Right | | femoral head osteonecrosis has progressed since prior, with subchondral collapse, | | sclerosis and femoral head remodeling. There is new associated spurring of the right hip | | joint without significant narrowing. The sacroiliac joints are maintained. IMPRESSION: | | Interval progression of right femoral head osteonecrosis with new subchondral collapse | | and associated degenerative changes. Intact left total hip arthroplasty. I have | | personally reviewed the images and, if necessary, edited the report. I agree with the | | report as now presented. Final signature: Sharon Padilla MD 11/18/2018 3:44 PM | | Preliminary: Corina Dickens MD Dictation initiated: Corina Dickens MD 11/18/2018 | | 2:57 PM | |IMPRESSION: | | | |Interval progression of right femoral head osteonecrosis with new subchondral collapse and associated degenerative changes. | | | |Intact left total hip arthroplasty. | | | |I have personally reviewed the images and, if necessary, edited the report. I agree with th e report as now presented. | | | |Final signature: Sharon Padilla MD 11/18/2018 3:44 PM | |Preliminary: Corina Dickens MD | |Dictation initiated: Corina Dickens MD 11/18/2018 2:57 PM | + + + +---------+ + + | Performing | Address | City/State/Zipcode | Phone Number | | Organization | | | | + +---------+ + + | [facility] | | | | | VOICE RECOGNITION 2 | | | | + +---------+ + + documented in this encounter Visit Diagnoses + + | Diagnosis | + + | Pain of right hip joint - Primary | + + documented in this encounter
--- OUTSIDE RECORDS SUMMARY | ~2019-05-17 | XMS | Encounter Summary ---
Demographics + + + | Address | [address] | | | [place] [address] | + + + | Home Phone [...] Team Providers + +------+ + | Care Nozzle Cement Sprayer Helper Name | Role | Phone | + +------+ + | Pending Pcp Addition | PCP | Unavailable | + +------+ + Reason for Visit + + + | Reason | Comments | + + + | Schedule labs | Trifusion | + + + | Intravenous infusion | magnesium | + + + | Follow-up visit | JULIANA Jimenez | + + + Office Visit - [...] | | | | | achieved | [facility] [place] | [id number] | | | | | remission | [address] | [place] | | | | | | Phone: | Pavilion | | | | | Procedures | [phone] | [place], [place] | | | | | Post BMT | Fax: | [address] | | | | | Auth to | [phone] | Phone: | | | | | included | | [phone] | | | | | facility, | | Fax: | | | | | diagnostics, | | [phone] | | | | | office | | | | | | | visits and | | | | | | | surgery | | | +--------+---------+ + + + + Encounter Details +--------+ + + + + | Date | Type | Department | Care Team | Description | +--------+ + + + + | 09/13/ | Clinical | Center for | | Schedule labs | | 2016 | Support | Hematologic | | (Trifusion); | | | Staff | [facility] at [facility] | | Intravenous infusion | | | | [address] | | (magnesium); | | | | [address] Mailcode: | | Follow-up visit | | | | [id number] [place] | | (JULIANA Jimenez) | | | | [place], | | | | | | [place] [address] | | | | | | [phone] | | | +--------+ + + + [...] encounter Progress Notes Pricilla Guy RN - 09/14/2015 1:26 PM PSTINFUSION/TRANSFUSION NURSING NOTE Name: Khurram Kelly Date: 09/14/2015 Provider: Yari Garcia MD/ JULIANA Patterson Subjective: Patient arrived ambulatory to clinic with . Khurram Kelly is a 25 ye ar old male with a hx of AML. Patient was discharged from hospital yesterday (09/13/2015). Pat ient day +19 s/p Bu/Cy conditioned URD PBSCT (Day 0= 08/26/2015). Patient reports feeling wel l today. Patient does have conjunctivitis of right eye that started approximately 3-4 days a go. Reports some blurred vision to right eye but states it has improved. Patient denies any pain or discharge from eye. Khurram is scheduled for an appointment tomorrow at the [facility]. Patient has rash to flank area and lower back. Denies any itching. Will speak with provider. Patient denies any fevers, chills, nausea, vomiting, diarrhea, constipation, SOB, bleeding, mouth sores, neuropathy, and edema. States his appetite is good but nothing tastes right so he has been consuming mainly soft foods. Patient encouraged to drink at least 2L of fluids daily. Past illnesses: Khurram has a past medical [...] scheduled for provider visit today with JULIANA Patterson. Magnesium: Magnesium Sulfate 2 gm in 50 mL NS infused over 1 hours per supportive care orders for a ma gnesium level of 1.4 within previous 5 days. Today's magnesium level resulted at 1.7. For infusion details, see SEP. Narrative: Patient seen by JULIANA Jimenez. No further supportive measures needed. Prescri ption for triamcinolone acetonide 0.1 % topical cream ordered for rash. Patient has no other questions or concerns. Reviewed precautions to take at home and when to call. Trifusion pul se flushed with 10 mL NS and 5 mL of 10 units/mL Heparin. Patient discharged home with spou se. Pricilla Guy, RN documented in this encounter [...] Hospital | | | | | | [facility] | | | | | | [place], [place] | | | | | | [address] | | | | | | [phone] | | | | | | | | +--------+---------+ + + + documented as of this encounter Procedures + +--------+ + + + | Procedure Name | Priori | Date/Time | Associated Diagnosis | Comments | | | ty | | | | + +--------+ + + + | CBC+DIFF,POC | Routin | 09/14/2015 | Acute myeloid | Results for this | | | e | 1:16 PM | leukemia (AML), M4 | procedure are in the | | | | PST | ([facility])- primary | results section. 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 | | | | | | (HCC) | | + +--------+ + + + | TREATMENT PARAMETERS | Routin | 09/14/2015 | 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 | 12:43 PM | leukemia (AML), M4 | | | | | PST | ([facility])- primary | | | | | | induction failure | | + +--------+ + + + | TREATMENT PARAMETERS | Routin | 09/14/2015 | 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 | 12:43 PM | leukemia (AML), M4 | | | | | PST | ([facility])- primary | | | | | | induction failure | | + +--------+ + + + | TREATMENT PARAMETERS | Routin | 09/14/2015 | 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 | 12:43 PM | leukemia (AML), M4 | | | | | PST | ([facility])- primary | | | | | | induction failure | | + +--------+ + + + | TREATMENT PARAMETERS | Routin | 09/14/2015 | 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 | 12:43 PM | leukemia (AML), M4 | | | | | PST | ([facility])- primary | | | | | | induction failure | | + +--------+ + + + | TREATMENT PARAMETERS | Routin | 09/14/2015 | 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 | 12:43 PM | leukemia (AML), M4 | | | | | PST | ([facility])- primary | | | | | | induction failure | | + +--------+ + + + | NURSING | Routin | 09/14/2015 | Acute myeloid | | | COMMUNICATION #3 - | e | 12:43 PM | leukemia (AML), M4 | | | [facility] | | PST | ([facility])- primary | | | | | | induction failure | | + +--------+ + + + | NURSING | Routin | 09/14/2015 | Acute myeloid | | | COMMUNICATION #2 - | e | 12:43 PM | leukemia (AML), M4 | | | [facility] | | PST | (HCC)- primary | | | | | | induction failure | | + +--------+ + + + | NURSING | Routin | 09/14/2015 | Acute myeloid | | | COMMUNICATION #1 - | e | 12:43 PM | leukemia (AML), M4 | | | [facility] | | PST | (HCC)- primary | | | | | | induction failure | | + +--------+ + + + | TREATMENT PARAMETERS | Routin | 09/14/2015 | Acute myeloid | | | #1 - [place] | e | 12:43 PM | leukemia (AML), M4 | | | | | PST | (HCC)- primary | | | | | | induction failure | | + +--------+ + + + | TREATMENT PARAMETERS | Routin | 09/14/2015 | Acute myeloid | | | #1 - [place] | e | 12:43 PM | leukemia (AML), M4 | | | | | PST | ([facility])- primary | | | | | | induction failure | | + +--------+ + + + | LIVER SET | Urgent | 09/14/2015 | Acute myeloid | Results for this | | (AST,ALT,BILI | | 12:43 PM | leukemia (AML), M4 | procedure are in the | | TOTAL,BILI | | PST | ([facility])- primary | results section. | | DIRECT,ALK | | | induction failure | | | PHOS,ALB,PROT TOTAL) | | | S/P allogeneic bone | | | | | | marrow transplant | | | | | | (HCC) | | + +--------+ + + + | PHOSPHORUS, PLASMA | Urgent | 09/14/2015 | Acute myeloid | Results for this | | | | 12:43 PM | leukemia (AML), M4 | procedure are in the | | | | PST | ([facility])- primary | results section. 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 | | | | | | (HCC) | | + +--------+ + + + documented in this encounter Results CBC+DIFF,POC (09/14/2015 1:16 PM PST) + + + + + + | Component | Value | Ref Range | Performed | Pathologist | | | | | At | Signature | + + + + + + | WBC POC | 10.4 | 4.4 - 11.0 | [facility] - | | | | | 10*3/uL | [facility] | | | | | | [facility] | | | | | | OF CARE | | | | | | TESTS | | + + + + + + | RBC POC | 3.21 (L) | 4.50 - 6.00 | [facility] - | | | | | 10*6/uL | [facility] | | | | | | [facility] | | | | | | OF CARE | | | | | | TESTS | | + + + + + + | HGB POC | 9.6 (L) | 13.5 - 17.5 | [facility] - | | | | | g/dL | [facility] | | | | | | [facility] | | | | | | OF CARE | | | | | | TESTS | | + + + + + + | HCT POC | 27.4 (L) | 41.0 - 53.0 % | [facility] - | | | | | | [facility] | | | | | | [facility] | | | | | | OF CARE | | | | | | TESTS | | + + + + + + | MCV POC | 85.4 | 80.0 - 96.0 fL | [facility] - | | | | | | [facility] | | | | | | [facility] | | | | | | OF CARE | | | | | | TESTS | | + + + + + + | MCH POC | 29.9 | 28.5 - 32.3 pg | [facility] [...] | | | | | g/dL | [facility] | | | | | | [facility] | | | | | | OF CARE | | | | | | TESTS | | + + + + + + | RDW SD, POC | 39.3 | 35.1 - 46.3 fL | [facility] - | | | | | | [facility] | | | | | | [facility] | | | | | | OF CARE | | | | | | TESTS | | + + + + + + | PLT POC | 42 (L) | 150 - 400 | [facility] [...] + + + + | NEUTROPHIL% | 73.1 (H) | 50.0 - 70.0 % | [facility] - | | | POC | | | [facility] | | | | | | [facility] | | | | | | OF CARE | | | | | | TESTS | | + + + + + + | LYMPH% POC | 6.0 (L) | 18 - 42 % | [facility] - | | | | | | [facility] | | | | | | [facility], POINT | | | | | | OF CARE | | | | | | TESTS | | + + + + + + | MONO %, POC | 19.3 (H) | 3.5 - 9.0 % | [...] + + + + | NEUTROPHIL# | 7.6 | 1.8 - 7.7 | [facility] - | | | POC | | 10*3/uL | [facility] | | | | | | [facility] | | | | | | OF CARE | | | | | | TESTS | | + + + + + + | LYMPH# POC | 0.6 (L) | 1.0 - 4.8 | [facility] [...] - [facility] | [address] | [place], [place] | | | [facility] OF CARE | [address] | [address] | | | TESTS | | | | + + + + + BMP PLUS, POC CHM (09/14/2015 1:14 PM PST) + +---------+ + + + [...] +---------+ + + + | GLUCOSE, | 93 | 60 - 99 mg/dL | [facility] [...] + + + | LDH, POC | 343 (H) | 0 - 206 U/L | [...] [facility] | [address] | [place], [place] | | | [facility] CAR[facility] OF [facility] | [address] | [address] | | | TESTS | | | | + + + + + PHOSPHORUS, PLASMA (09/14/2015 12:43 PM PST) + +-------+ + + + [...] [facility] | [address] | [place] [address] | | | SERVICES, CORE | [address] | | | + + + + + LIVER SET (AST,ALT,BILI TOTAL,BILI DIRECT,ALK PHOS,ALB,PROT TOTAL) (09/14/2015 12:43 PM PST ) + +---------+ + + [...] + + + | ALK PHOS | 119 | 53 - 128 U/L | [facility] [...] + + + | ALT (SGPT) | 33 | <=60 U/L | [facility] | | [...] [facility] | [address] | [place] [address] | | | SERVICES, CORE | [facility] [...] 10 unit/mL IV flush | Given | 09/14/19 | 50 Units | | | | syringe 50 Units 50 Units, | | 16 2:11 | | | | | Intracatheter, NEEDED, | | PM PST | | | | | Starting Sun09/14/15 at 1313, | | | | | | | Until Sun09/14/15 at 2115, line | | | | | | | patency | | | | | | + +--------+ + +------+------+ +---+---+ | | | +---+---+ + +---------+ +-----+---+---+ | magnesium sulfate in water IV | New Bag | 09/14/19 | 2 g | | | | (RTU) 2 g 2 g, intravenous, | | 16 1:10 | | | | | ONCE, 1 dose, Sun09/14/15 at 1300 | | PM PST | | | | + +---------+ +-----+---+---+ +---+---+ | | | +---+---+ documented in this encounter"
--- OUTSIDE RECORDS SUMMARY | ~2019-05-17 | XMS | Encounter Summary ---
Demographics + + + | Address | [address] | | | [place] [address] | + + + | Home Phone [...] Team Providers + +------+ + | Care Rollway Man Name | Role | Phone | + +------+ + | Pending Pcp Addition | PCP | Unavailable | + +------+ + Reason for Visit + + + | Reason | Comments | + + + | Chemotherapy | Vidaza | + + + | Follow-up visit | ORLY Yanes | + + + Benefits Check (Routine) [...] | | | | | | [place], | | | | | | | [place] | | | | | | | [address] | | | | | | | Phone: | | | | | | | [phone] | | | | | | | Fax: | | | | | | | [phone] | +--------+--------+ + + + + Encounter Details +--------+ + + + + | Date | Type | Department | Care Team | Description | +--------+ + + + + | 03/22/ | Clinical | Center for | | Chemotherapy | | 2016 | Support | Hematologic | | (Vidaza); Follow-up | | | Staff | [facility] | | visit ([place], | | | | [address] | | [facility]) | | | | [address] Mailcode: | | | | | | [id number] [address] | | | | | | [place], | | | | | | [place] [address] | | | | | | [phone] | | | +--------+ + + + [...] documented as of this encounter Progress Notes Samantha Blackwood, ZAFAR - 03/22/2016 9:18 AM PDTFormatting of this note might be different from jaycee farrell. Chemotherapy Nurse Note Physician: Dr. Garcia Allergies: Khurram is allergic to chlorhexidine towelette. Pre-Chemotherapy Pain Score: Patient reports a pain level of today. Narrative: Patient ambulatory to infusion room. Khurram Kelly is a 25 yo male with a h/o primar y refractory AML. he is s/p tBuCy-conditioned unrelated donor PBSC transplant (Day 0 = 08/26) and continues maintenance Vidaza. Patient in clinic today for Cycle 6 Day 2 infusion. Nursing Assessment: Fever: no; Diarrhea: no; SOB / Cough: no; Nausea / Vomiting: yes - several episodes of naus ea that resolved quickly and did not require antiemetics; Anemia / Fatigue: no; Constipation : no; Edema: no; S/S Bleeding: no; Mucositis: no; Urinary: no; Neuropathy: no; Rash: no; Pat iejustin reports that overall his appetite has been good and that he is eating normal meals. He reports that he is drinking 2L of fluid a day without difficulty. Patient reports that he is sleeping well and has no complaints or concerns at this time. Patient will be seen in OV to day by ORLY Yanes. Vascular Access: 22 gauge PIV placed in patient s [...] For Treatment Done in Clinic Today: see [facility] Treatment Provided: Labs ordered twice weekly, were drawn Sunday and will be drawn tomorrow. Pre-medication of Zofran 8 mg PO given as ordered. Chemotherapy was checked by 2 RNs. Vidaza was infused per chemotherapy protocol and comple edward without adverse event. Positive blood return noted pre and post infusion. For infusion details, see [facility]. PIV was removed intact and site free of redness, pain or swelling. Site covered with gauze and coban. Patient was reminded to call clinic with temp > 100.4, chills, s/s of bleeding or uncontrolled N/V/D/C. Patient verbalizes understanding. All questions answered. Patient was instructed to check out at the front end software engineer prior to leaving the clinic. Patient d/c d ruthy treviño with his in stable condition. Next Appointment in [facility] is on 03/09 11/21 at 2:30 pm with [facility]. Kim Blackwood RN documented in this encoun ter Plan [...] Rd | | | | | | [place], [place] | | | | | | [address] | | | | | | [phone] | | | | | | | | +--------+---------+ + + + documented as of this encounter Procedures + +--------+ + + + | Procedure Name | Priori | Date/Time | Associated Diagnosis | Comments | | | ty | | | | + +--------+ + + + | TREATMENT PARAMETERS | Routin | 03/22/2016 | 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 | 9:19 AM | leukemia (AML), 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 | | | | | | induction failure | | + +--------+ + + + | TREATMENT PARAMETERS | Routin | 03/22/2016 | 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 | 9:19 AM | leukemia (AML), 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 | | | | | | induction failure | | + +--------+ + + + | TREATMENT PARAMETERS | Routin | 03/22/2016 | 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 | 9:19 AM | leukemia (AML), 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 | | | | | | induction failure | | + +--------+ + + + | TREATMENT PARAMETERS | Routin | 03/22/2016 | 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 | 9:19 AM | leukemia (AML), 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 | | | | | | induction failure | | + +--------+ + + + | TREATMENT PARAMETERS | Routin | 03/22/2016 | 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 | 9:19 AM | leukemia (AML), 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 | | | | | | induction failure | | + +--------+ + + + | NURSING | Routin | 03/22/2016 | Acute myeloid | | | COMMUNICATION #3 - | e | 9:19 AM | leukemia (AML), M4 | | | [facility] | | PDT | ([facility])- primary | | | | | | induction failure | | + +--------+ + + + | NURSING | Routin | 03/22/2016 | Acute myeloid | | | COMMUNICATION #2 - | e | 9:19 AM | leukemia (AML), M4 | | | [facility] | | PDT | ([facility])- primary | | | | | | induction failure | | + +--------+ + + + | NURSING | Routin | 03/22/2016 | Acute myeloid | | | COMMUNICATION #1 - | e | 9:19 AM | leukemia (AML), M4 | | | [facility] | | PDT | (HCC)- primary | | | | | | induction failure | | + +--------+ + + + | TREATMENT PARAMETERS | Routin | 03/22/2016 | Acute myeloid | | | #1 - [place] | e | 9:19 AM | leukemia (AML), 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 | | | | | | induction failure | | + +--------+ + + + | TREATMENT PARAMETERS | Routin | 03/22/2016 | Acute myeloid | | | #1 - [place] | e | 9:19 AM | leukemia (AML), M4 | | [...] + +---------+ +-------+-------+ + | azaCITIDine (VIDAZA) 75 mg in | New Bag | 03/22/20 | 75 mg | 215 | Right AC | | NaCl 0.9 % IV 75 mg (rounded | | 16 10:15 | | mL/hr | | | from 72.64 mg = 32 mg/m2 | | AM PDT | | | | | 2.27 m2 Treatment plan recorded | | | | | | | BSA), intravenous, Administer | | | | | | | over 30 Minutes, ONCE, 1 dose, | | | | | | | 03/22/16 at 0930, HIGH RISK | | | | | | | MEDICATION-CHEMOTHERAPY | | | | | | | Administration must be completed | | | | | | | within 1 hour of preparation., | | | | | | + +---------+ +-------+-------+ + +---+---+ | | | +---+---+ + +-------+ +------+---+---+ | ondansetron (ZOFRAN) tablet 8 | Given | 03/22/20 | 8 mg | | | | mg 8 mg, oral, ONCE, 1 dose, Wed | | 16 9:50 | | | | | 03/22/16 at 0930 | | AM PDT | | | | + +-------+ +------+---+---+ +---+---+ | | | +---+---+ documented in this encounter"
--- OUTSIDE RECORDS SUMMARY | ~2019-05-17 | XMS | Encounter Summary ---
Demographics + + + | Address | [address] | | | [place] [address] | + + + | Home Phone [...] + +------+ + | Care Bias Cutter Name | Role | Phone | + [...] Pharmacy | | | | | | [address] | | | | | | [place], | | | | | | [place] [address] | | | +--------+ + + + [...] Rd | | | | | | [place], [place] | | | | | | [address] | | | | | | [phone] | | | | | | | | +--------+---------+ + + + documented as of this encounter Visit Diagnoses Not on filedocumented in this encounter"
--- OUTSIDE RECORDS SUMMARY | ~2019-05-17 | XMS | Encounter Summary ---
Demographics + + + | Address | [address] | | | [place] [address] | + + + | Home Phone [...] Team Providers + +------+ + | Care Caustic Liquor Maker Name | Role | Phone | + +------+ + | Pending Pcp Addition | PCP | Unavailable | + +------+ + Encounter Details +--------+ + + + + | Date | Type | Department | Care Team | Description | +--------+ + + + + | 09/27/ | Mammal Control Agent | Center for | Em Saunders, | Acute myeloid | | 2016 | | Hematologic | PA-C [address] | leukemia (AML), M4 | | | | Malignancies at | [address] | (HCC)- primary | | | | [facility] | [place], [place] | induction failure | | | | [address] | [address] | (Primary Dx); S/P | | | | [address] Mailcode: | [phone] | allogeneic bone | | | | [id number] | | marrow transplant | | | | [place], | | ([facility]) | | | | [place] [address] | | | | | | [phone] | | | +--------+ + + + [...] Rd | | | | | | [place], [place] | | | | | | [address] | | | | | | [phone] | | | | | | | [...] BONE MARROW (LABEL) | | PDT | ([facility])- primary | 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 | | | | | | ([facility]) | | + +--------+ + + + | ENGRAFTMENT | Routin | 09/27/2015 | Acute myeloid | Results for this | | POST-TRANSPLANT, | e | | leukemia (AML), M4 | procedure are in the | | BONE MARROW (PP) | | | ([facility])- primary | results section. 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 | | | | | | ([facility]) | | + +--------+ + + + | ENGRAFTMENT | Routin | 09/27/2015 | Acute myeloid | Results for this | | POST-TRANSPLANT, | e | | leukemia (AML), M4 | procedure are in the | | BONE MARROW | | | ([facility])- primary | results section. 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 | | | | | | ([facility]) | | + +--------+ + + + [...] + + + + | [facility] | [address], | [place] [address] | | | DIAGNOSTIC | [address] [...] NMDP | | | | | | [id number] | | | | | | indications: [...] | | | | | | STRloci [id number], vWA, | | | | | | FGA, [id number], [id number], | | | | | | [id number], [id number], [id number], | | | | | | [id number],and amelogenin | | | | | | [...] | | | | | determined bythe [facility] | | | | | | [facility] [...] | | | | | The [facility] | | | | | | DiagnosticsLaboratories | | | | | | is a fully licensed | | | | | | and/or accredited | | | | | | clinical laboratoryunder | | | | | | CLIA, CAP, and the | | | | | | State of [place]. | | | | | | Rendering [...] | [facility] | [address] | [place] [address] | | | DIAGNOSTIC | [address] [...]
--- OUTSIDE RECORDS SUMMARY | ~2019-05-17 | XMS | Encounter Summary ---
Demographics + + + | Address | [address] | | | [place] [address] | + + + | Home Phone [...] Team Providers + +------+ + | Care Handkerchief Presser Name | Role | Phone | + [...] | ic leukemia, | Je [place] | [facility] | | | | | not having | [address] | [address] | | | | | achieved | [place], [place] | Rd Mailcode: | | | | | remission | [address] | [facility] | | | | | Procedures | Phone: | [place] | | | | | [place] | [phone] | Pavilion | | | | | AZACITIDINE | Fax: | [place], [place] | | | | | INJECTION, 1 | [phone] | [address] | | | | | [place] | | Phone: | | | | | CHM,IV | | [phone] | | | | | INFSN,1 HR | | Fax: | | | | | [place] CHM,IV | | [phone] | | | | | INFSN,ADDL | | | | | | | HR Vidaza | | | +--------+---------+ + + + + Encounter Details +--------+ + + + + | Date | Type | Department | Care Team | Description | +--------+ + + + + | 12/02/ | Clinical | Center for | | Lab Draw; | | 2015 | Support | Hematologic | | Chemotherapy | | | Staff | Malignancies at [facility] | | | | | | [address] | | | | | | [address] [place] Mailcode: | | | | | | [facility] | | | | | | [place], | | | | | | [place] [address] | | | | | | [phone] | | | +--------+ + + + [...] + + + | Blood Pressure | 123/85 | 12/03/2015 8:00 AM | | | | | PDT | | + + + + + | Pulse | 78 | 12/03/2015 8:00 AM | | | | | PDT | | + + + + + | Temperature | 36.6 C (97.9 F) | 12/03/2015 8:00 AM | | | | | PDT | | + + + + + | Respiratory Rate | 16 | 12/03/2015 8:00 AM | | | | | PDT | | + + + + + | Oxygen Saturation | 99% | 12/03/2015 8:00 AM | | | | | PDT | | + + + + + | Inhaled Oxygen | - | - | | | Concentration | | | | + + + + + | Weight | 85.4 kg (188 lb 3.2 | 12/03/2015 8:00 AM | | | | oz) | PDT | | + + + + + | Height | - | - | | + + + + + | Body Mass Index | 24.33 | 08/18/2015 4:35 PM | | | | | PST | | + + + + + documented in this encounter Progress Notes Deedee Benites, RN - 12/03/2015 8:16 AM PDT Neostar accessed per protocol. Good blood return noted. Appropriate waste discarded. Lab s drawn and sent. Neostar pulse flushed with 20 mL NS. Tacrolimus - Initial Assessment Khurram Diamond Leticia's field contact technician for today is Gabriel burgos his contact phone number for today 12/02 is: [phone] Khurram has been advised of when to expect a confirmation call regarding any necessary dos e adjustments: yes. Khurram was asked to contact this clinic if he has not received a confi rmation call within 24 hours. Khurram reports he currently takes Tacrolimus 1 mg every morning and 1 mg every evening. T his is the correct dose according to his most recent dose adjustment. Khurram took his last dose at 8PM (time) on 12/01 (date). Chemotherapy Nurse Note Name: Khurram Kelly Date: 12/03/2015 Physician: Dr Garcia Allergies: Khurram is allergic to chlorhexidine towelette. Pre-Chemotherapy Pain Score: Patient reports a pain level of today. Nursing Assessment: Fever: no; Diarrhea: no; SOB / Cough: no; Nausea / Vomiting: yes - patient reports nausea e ach day after chemotherapy. He vomited x 1 on Day 1, but since then has been using Ondansetr on PRN with success; Anemia / Fatigue: no; Constipation: no; Edema: no; S/S Bleeding: no; Mu cositis: no; Urinary: no; Neuropathy: no; Rash: no Labs: Lab Results Component Value Date WBC 5.6 12/02/2015 HB 13.1* 12/02/2015 HCT 38.1* 12/02/2015 PLT 52* 12/02/2015 BUN 16 12/02/2015 CR 1.1 12/02/2015 For Treatment Done in Clinic Today: see MAR Narrative: Patient was pre-medicated with Ondansetron 8mg PO Chemotherapy was checked by 2 RNs. IV Vidaza was infused per chemotherapy protocol and com pleted without adverse event. Positive blood return noted pre, during and post infusion. F or infusion details, see MAR. Assessment: Tolerated procedure Patient discharged home, ambulatory from clinic with , and will RTC on November ana lilia Benites RN Annette entjasen in this encounter Plan of Treatment +--------+---------+ [...] 2018 | Visit | Malignancy | [address] [facility] | | | | | | [address] | | | | | | [place], [place] | | | | | | [address] | | | | | | [phone] | | | | | | | | +--------+---------+ + + + documented as of this encounter Procedures + +--------+ + + + | Procedure Name | Priori | Date/Time | Associated Diagnosis | Comments | | | ty | | | | + +--------+ + + + | LIVER SET | Urgent | 12/03/2015 | 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 | | DIRECT,ALK | | | induction failure | | | PHOS,ALB,PROT TOTAL) | | | S/P allogeneic bone | | | | | | marrow transplant | | | | | | (HCC) | | + +--------+ + + + | TACROLIMUS, WHOLE | Urgent | 12/03/2015 | S/P allogeneic | Results for this | | BLOOD | | 8:10 AM | bone marrow | procedure are [...] LIVER SET (AST,ALT,BILI TOTAL,BILI DIRECT,ALK PHOS,ALB,PROT TOTAL) (12/03/2015 8:10 AM PDT ) + +---------+ + + [...] + + + | ALK PHOS | 60 | 53 - 128 U/L | [facility] [...] + + + | ALT (SGPT) | 122 (H) | <=60 U/L | [facility] | [...] [facility] | [address] | [place] [address] | | | SERVICES, CORE | [address] | | | + + + + + TACROLIMUS, WHOLE BLOOD (12/03/2015 8:10 AM PDT) + +-------+ + + + | Component | Value | Ref Range | Performed | Pathologist | | | | | At | Signature | + +-------+ + + + | TACROLIMUS | 13.0 | 5.0 - 15.0 | [facility] | [...] | + + + + + | Fio | [address] | [place] [address] | | | SERVICES, SPECIAL | PARK [...] 70 mg in | New Bag | 12/03/19 | 70 mg | 214 | | [...] | | | | | | | Sun12/03/15 at 0815, HIGH RISK | | | | | | | MEDICATION-CHEMOTHERAPY | | | | | | | Administration must be completed | | | | | | | within 1 hour of preparation., | | | | | | + +---------+ +-------+-------+------+ +---+---+ | | | +---+---+ + +-------+ + +---+---+ | heparin 10 unit/mL IV flush | Given | 12/03/19 | 50 Units | | | | syringe 50 Units 50 Units, | | 16 9:42 | | | | | Intracatheter, NEEDED, | | AM PDT | | | | | Starting Sun12/03/15 at 0820, | | | | | | | Until Sun12/03/15 at 1638, line | | | | | | | patency | | | | | | + +-------+ + +---+---+ +-------+ + +---+---+ | Given | 12/03/19 | 50 Units | | | | | 16 9:41 | | | | | | AM PDT | | | | +-------+ + +---+---+ | Given | 12/03/19 | 50 Units | | | | | 16 9:40 | | | | | | AM PDT | | | | +-------+ + +---+---+ +---+---+ | | | +---+---+ + +-------+ +------+---+---+ | ondansetron (ZOFRAN) tablet 8 | Given | 12/03/19 | 8 mg | | | | mg 8 mg, oral, ONCE, 1 dose, Fri | | 16 8:20 | | | | | 12/03/15 at 0815 | | AM PDT | | | | + +-------+ +------+---+---+ +---+---+ | | | +---+---+ documented in this encounter"
--- OUTSIDE RECORDS SUMMARY | ~2019-05-17 | XMS | Encounter Summary ---
Demographics + + + | Address | [address] | | | [place] [address] | + + + | Home Phone [...] Providers + +------+ + | Care Senior It Engineer Name | Role | Phone | [...] | | | | | [address], | [place], [place] | | | | | [place] [address] | [address] | | | | | | [phone] | | | | | | | [...] Rd | | | | | | [place], [place] | | | | | | [address] | | | | | | [phone] | | | | | | | | +--------+---------+ + + + documented as of this encounter Procedures + +--------+ + + + | Procedure Name | Priori | Date/Time | Associated Diagnosis | Comments | | | ty | | | | + +--------+ + + + | LIT FLOW HLA I AB AG | Routin | 08/17/2015 | Acute | Results for this | | ID, BLOOD | e | 1:51 PM | myelomonocytic | procedure are in the | | | | PST | leukemia not having | results section. | | | | | achieved remission | | | | | | (HCC) | | + +--------+ + + + documented in this encounter Results LIT FLOW HLA I AB AG ID, BLOOD (08/17/2015 1:51 PM PST) + + + + + + | Component | Value | Ref Range | Performed | Pathologist | | | | | At | Signature | + + + + + + | LABEL ONLY | Please see lab report | | [facility] - | | | - LIT | for result. | | IMMUNOGENET | | | | | | ICS/TRANSPL | | | | | | ANT | | | | | | LABORATORY | | + + + + + + + + | Specimen | + + | Blood - Blood | | (substance) | + + + + + + + | Performing | Address | City/State/Zipcode | Phone Number | | Organization | | | | + + + + + | [facility] - | [address], | [place] [address] | | | IMMUNOGENETICS/TRANS | [address] [...]
--- OUTSIDE RECORDS SUMMARY | ~2019-05-17 | XMS | Encounter Summary ---
Demographics + + + | Address | [address] | | | [place] [address] | + + + | Home Phone [...] Team Providers + +------+ + | Care Hairspring Inspector Name | Role | Phone | + +------+ + | Pending Pcp Addition | PCP | Unavailable | + +------+ + Encounter Details +--------+ + + + + | Date | Type | Department | Care Team | Description | +--------+ + + + + | 03/09/ | Hospital | [facility] | | | | 2015 | Encounter | Interventional | | | | | | [facility] | | | | | | [address] | | | | | | [place], | | | | | | [place] [address] | | | | | | [phone] | | | +--------+ + + + [...] + + + | Blood Pressure | 128/68 | 03/09/2016 1:10 PM | | | | | PDT | | + + + + + | Pulse | 68 | 03/09/2016 1:10 PM | | | | | PDT | | + + + + + | Temperature | 36.9 C (98.4 F) | 03/09/2016 1:10 PM | | | | | PDT | | + + + + + | Respiratory Rate | 15 | 03/09/2016 1:10 PM | | | | | PDT | | + + + + + | Oxygen Saturation | 95% | 03/09/2016 1:10 PM | | | | | PDT [...] documented in this encounter Discharge Instructions Instructions Sobeida Rodriguez, ZAFAR - 03/09/2016[place] Care Following Venous Catheter Removal Your catheter has been removed at the request of your physician. The following are guidelin es to follow in order to minimize any complications. 1. The site may be reddened and sore after the local anesthesia has worn off. A small brui se may develop but this should resolve in a few days. 2. After the removal, do not lie down with your head flat. You need to keep your head eleva edward for the next 4 hours to reduce the risk of bleeding. No bending over or stooping for th ose 4 hours. No heavy lifting (more than 5 lbs.), straining, or exerting yourself for 24 lorrie rs. You may then gradually increase your activities as tolerated over the next few days. 3. Bleeding: you may have a small amount of blood afterwards on the dressing. This is gabriela l. If you have bleeding or oozing from the wound site; sit down and apply direct firm pressu re for 5-10 minutes at your neck above the bandage as well as at your chest insertion site. The bleeding should stop. If it does not; maintain pressure and call us at the above phone numbers or go to the nearest emergency room. 4. You may take Tylenol or Ibuprofen for discomfort if not contraindicated by your doctor. Icing may also help. Wrap ice in a cloth towel and apply to the wound site for 20 minutes at a time. The pain should lessen over the next few days. 5. Keep the initial dressing on for the first 24 hours. After that, change the dressing tw ice a day for the next 3 days with a Band-Aid. Keep the dressing dry at all times. When ch anging the dressing, cleanse the wound with soapy water and rinse with clear water. Allow t o air dry then apply Band-Aid. Call your doctor if: 1. Increasing redness or swelling at site, or red streaks near wound site. 2. Hardness or firmness at site. 3. Foul odor, or drainage at the wound site. 4. Increased pain or tenderness not relieved by medication 5. Fever above 101F. 6. Increased bleeding. How to Reach Us: from 8:00 - 3:30, call Interventional Radiology at . After 3:30 pm and on weekends, call the Hospital Study Director at and ask for the Interventional Radiology Fellow operational communication chief. documented in this encounter Plan of Treatment [...] 2018 | Visit | Malignancy | [address] | | | | | | [address] | | | | | | [place], [place] | | | | | | [address] | | | | | | [phone] | | | | | | | | +--------+---------+ + + + documented as of this encounter Visit Diagnoses Not on filedocumented in this encounter"
--- OUTSIDE RECORDS SUMMARY | ~2019-05-17 | XMS | Encounter Summary ---
Demographics + + + | Address | [address] | | | [place] [address] | + + + | Home Phone [...] Team Providers + +------+ + | Care Quality Cloth Tester Name | Role | Phone | [...] | | | | | achieved | [place], [place] | [facility] | | | | | remission | [address] | [place] | | | | | | Phone: | Pavilion | | | | | Procedures | [phone] | [place], [place] | | | | | Post BMT | Fax: | [address] | | | | | Auth to | [phone] | Phone: | | | | | included | | [phone] | | | | | facility, | | Fax: | | | | | diagnostics, | | [phone] | | | | | office | | | | | | | visits and | | | | | | | surgery | | | +--------+---------+ + + + + Encounter Details +--------+---------+ + + + | Date | Type | Department | Care Team | Description | +--------+---------+ + + + | 11/02/ | Office | Center for | Aspen Cummins FNP | S/P allogeneic bone | | 2017 | Visit | Hematologic | [address] [facility] | marrow transplant | | | | Malignancies at | [place] [address] | (HCC) (Primary Dx) | | | | [facility] | [place], [place] | | | | | [address] | [address] | | | | | [address] [place] Mailcode: | [phone] | | | | | [facility] | | | | | | Pavilion [place], | | | | | | [place] [address] | | | | | | [phone] | | | +--------+---------+ + + + [...] + + + | Blood Pressure | 131/81 | 11/02/2016 10:54 AM | | | | | PDT | | + + + + + | Pulse | 90 | 11/02/2016 10:54 AM | | | | | PDT | | + + + + + | Temperature | 36.7 C (98.1 F) | 11/02/2016 10:54 AM | | | | | PDT | | + + + + + | Respiratory Rate | 16 | 11/02/2016 10:54 AM | | | | | PDT | | + + + + + | Oxygen Saturation | 100% | 11/02/2016 10:54 AM | | | | | PDT | | + + + + + | Inhaled Oxygen | - | - | | | Concentration | | | | + + + + + | Weight | 76.6 kg (168 lb 14 | 11/02/2016 10:54 AM | | | | oz) | PDT | | + + + + + | Height | - | - | | + + + + + | Body Mass Index | 21.11 | 10/18/2016 10:05 AM | | | | | PDT | | + + + + + documented in this encounter Progress Notes Aspen Cummnis FNP - 11/02/2016 10:45 AM PDT 11/02/2016 [facility] Primary [facility] MD: Yari Garcia MD Primary Oncologist: Yari Garcia MD Diagnosis: AMML, primary refractory Transplant Date: 08/27/15 Donor: MMURD (DPB1 permissive antigen mismatch, male, [id number]) Identifying Data: Khurram Kelly is a 26 [...] his L ankle. He was evaluated at [place]'s ED on 06/[address] angiogram negative [...] acute myelomonocytic leukemia. He was referred to [facility] for further evaluation and man agement of his newly dx'd AML. Pt was admitted to [facility] on 05/26/15. Peripheral blood was sent [...] CD34, variable CD56, variable CD117, and dim HY793-lgmmc mickey; promonocyte immunophenotype (70% by flow): CD11b, [...] total hip arthroplasty. He is currently day +433s/p transplant, s/p 6 cyclesof azacitidine and returns to [facility] today for scheduled follow-up. Interim History: Khurram was most recently evaluated in our [facility] by me on 10/26/16. At that time, he presented with c/o blurred/double vision wit h dry eye and mild wind intolerance; dry mouth, pill-sticking; weight loss; and poor sleep. He noted at that time that he had stopped taking xanax completely. Since restarting xanax 1 mg po TID, he is feeling much better. He brought in a detailed food diary; eating very well without c/o N/V/D. Regained 12# over the last week [question accuracy of 12# however pt ladd s feel like he's gained some weight]. Active during the day. Able to play golf, walks the co urse pulling his bag behind him. Continues with c/o blurry vision but no longer double visi on. Sleeping better. Review of Systems Constitutional: Negative for chills, fever and malaise/fatigue. Diaphoresis: generalized. HENT: Negative for headaches, congestion and sore [...] knee pain resolved) and myalgias . Skin: Positive for rash (improving; no longer using steroid cream). Neurological: Positive for weakness. Negative for dizziness, [...] this visit. No Known Allergies Filed Vitals: 11/02/2016 10:54 AM Weight: 76.6 kg (168 lb 14 oz) BP: 131/81 Pulse: 90 Temp: 36.7 C (98.1 F) TempSrc: Oral Resp: 16 SpO2: 100% PainSc: 0 - Zero BMI: 21.11 kg/(m^2) Physical Exam Constitutional: Thin CM in [...] Skin: Skin is warm and dry. Rash (scaling hyperpigmented rash to mid back, shoulders) noted . Psychiatric: Mood and affect normal. Vitals reviewed. Lab Results Component Value Date WBC 8.68 11/02/2016 HB 13.5 11/02/2016 HCT 40.9 11/02/2016 PLT 242 11/02/2016 MCV 96.0 11/02/2016 RDW 55.6 11/02/2016 Lab Results Component Value Date BICARB 29 11/02/2016 TBILI 0.2 (L) 11/02/2016 CA 9.4 11/02/2016 CL 107 11/02/2016 CR 0.72 11/02/2016 GLU 97 11/02/2016 AP 109 11/02/2016 TP 6.8 11/02/2016 BUN 11 11/02/2016 ALB 3.7 11/02/2016 AST 63 (H) 11/02/2016 NA 141 11/02/2016 K 3.9 11/02/2016 ALT 201 (H) 11/02/2016 Assessment/Plan: 1. 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 His most recent marrow studies completed 08/31/16 showed a normocellular marrow (30%) with trilineage hematopoiesis, marrow eosinophilia (~15%) and <2% myeloid bl asts. Karyotype 46,XY[20]. VNTR showed no detectable host cells. 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 Peripheral blood c ounts WNL with no evidence of disease by peripheral smear. 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 He initially responded but flared during taper. He also developed low-level nausea and abd discomfort concerning for GvHD, emp irically treated with oral non-absorbables with resolution. - He had tapered prednisone to 10 mg po daily when he developed a rash for which he was see n in the ED in [place] in late 01/21. Prednisone was increased back [...] at this time aside from mild ocular irritation, scaling rash to back --> adjust tacrolimus to maintain a trough level of 4-8 --> continue mycophenolate ER 720 mg po BID and prednisone 20 mg po daily --> encouraged pt to restart triamcinolone cream/ointment BID --> continue to f/u with ophthalmology per [...] one patient with minimal guidance from the reaming machine tender (not the alex reaming machine tender). He is willing to give it another [...] po TID without additional dose adjustment --> again encouraged pt to schedule counseling session at Transitions; he and his have contact information --> Kezia [place] SWITCHBOARD CLERK continues to support 7. Follow up -->RTC to f/u with Yari Garcia MD on , 11/09/16, sooner prn --> [facility] at [facility] prior [facility] [address] [facility] Mailcode: [place] [id number] documented in this enc ounter Plan of [...] | 2019 | Visit | Malignancy | [address] [place] [address] | | | | | | [address] | | | | | | [place], [place] | | | | | | [address] | | | | | | [phone] | | | | | | | | +--------+---------+ + + + documented as of this encounter Visit Diagnoses + + | Diagnosis | + + | 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
--- OUTSIDE RECORDS SUMMARY | ~2019-05-17 | XMS | Encounter Summary ---
Demographics + + + | Address | [address] | | | [place] [address] | + + + | Home Phone [...] Team Providers + +------+ + | Care Kettleman Name | Role | Phone | + +------+ + | No Pcp Per Patient | PCP | Unavailable | + +------+ + Reason for Visit + + + | Reason | Comments | + + + | Hip pain | R Hip | + + + | Other | R Hip "Clicking" | + + + Encounter Details +--------+ + + + + | Date | Type | Department | Care Team | Description | +--------+ + + + + | 03/15/ | Telephone | Orthopaedics at | Lobo Jeffers, | Hip pain (R Hip ); | | 2017 | | [facility] [address] | [address] | Other (R Hip | | | | [address] | [address] | "Clicking" ) | | | | Mailcode: [address]430 | [place], [place] | | | | | [facility] | [address] | | | | | [facility] [place] | [phone] | | | | | [address] | | | | | | [phone] | | | +--------+ + + + [...] | | | | | | [place] | | | | | | [address] | | | | | | [phone] | | | | | | | | +--------+---------+ + + + documented as of this encounter Visit Diagnoses Not on filedocumented in this encounter
--- OUTSIDE RECORDS SUMMARY | ~2019-05-17 | XMS | Encounter Summary ---
Demographics + + + | Address | [address] | | | [place] [address] | + + + | Home Phone [...] Team Providers + +------+ + | Care Wood Grinder Operator Name | Role | Phone | [...] | | | | | remission | [address] | [facility] | | | | | Procedures | Phone: | [place] | | | | | [place] | [phone] | Pavilion | | | | | AZACITIDINE | Fax: | [place], [place] | | | | | INJECTION, 1 | [phone] | [address] | | | | | [place] | | Phone: | | | | | CHM,IV | | [phone] | | | | | INFSN,1 HR | | Fax: | | | | | [place] CHM,IV | | [phone] | | | | | INFSN,ADDL | [...] | | | | | | [facility] [address] | | | | | | [place], | | | | | | [place] [address] | | | | | | [phone] | | | +--------+ + + + [...] 2019 | Visit | Malignancy | [address] [facility] | | | | | | [facility] | | | | | | [place], [place] | | | | | | [address] | | | | | | [phone] | | | | | | | [...]
--- OUTSIDE RECORDS SUMMARY | ~2019-05-17 | XMS | Encounter Summary ---
Demographics + + + | Address | [address] | | | [place] [address] | + + + | Home Phone [...] Team Providers + +------+ + | Care Incendiaries Supervisor Name | Role | Phone | + +------+ + | Pending Pcp Addition | PCP | Unavailable | + +------+ + Reason for Visit + + + | Reason | Comments | + + + | Transplant | LIT HLA Antibody Report | + + + Encounter Details +--------+ + + + + | Date | Type | Department | Care Team | Description | +--------+ + + + + | 07/21/ | Documentati | Kidney Transplant | Luis Carlos Sanders, | Transplant (LIT HLA | | 2016 | on | at [facility] [address] Floor | [address] | Antibody Report) | | | | [address] | [address] | | | | | [place] Mailcode: | [place], [place] | | | | | [address] Physician's | [address] | | | | | [address] | [phone] | | | | | [place], [place] | | | | | | [address] | | | | | | [phone] | | | +--------+ + + + [...] Rd | | | | | | [place], [place] | | | | | | [address] | | | | | | [phone] | | | | | | | | +--------+---------+ + + + documented as of this encounter Visit Diagnoses Not on filedocumented in this encounter"
--- OUTSIDE RECORDS SUMMARY | ~2019-05-17 | XMS | Encounter Summary ---
Demographics + + + | Address | [address] | | | [place] [address] | + + + | Home Phone [...] + + + | Author | [facility] | + + + | Organization | [facility] | + + + | Address | Unknown | + + + | Phone | Unavailable | + + + Support + + +---------+ + | Name | Relationship | Address | Phone | + + +---------+ + | Gabriel Kelly | ECON | Unknown | | + + +---------+ + Care Team Providers + +------+ + | Care Serologist Name | Role | Phone | + +------+ + | No Pcp Per Patient | PCP | Unavailable | + +------+ + Encounter Details +--------+ + + + + | Date | Type | Department | Care Team | Description | +--------+ + + + + | 11/27/ | [facility] for | Aspen Cummins FNP | RE: Social Security | | 2017 | Encounter | Hematologic | [address] | extension | | | | Malignancies at | [address] | | | | | [place] | [place], [place] | | | | | [address] | [address] | | | | | Debi Burger Mailcode: | [phone] | | | | | [facility] | | | | | | [place], | | | | | | [place] [address] | | | | | | [phone] | | | +--------+ + + + [...] Rd | | | | | | [place], [place] | | | | | | [address] | | | | | | [phone] | | | | | | | | +--------+---------+ + + + documented as of this encounter Visit Diagnoses Not on filedocumented in this encounter"
--- OUTSIDE RECORDS SUMMARY | ~2019-05-17 | XMS | Encounter Summary ---
Demographics + + + | Address | [address] | | | [place] [address] | + + + | Home Phone [...] Team Providers + +------+ + | Care Extrusion Engineer Name | Role | Phone | [...] [address] | | | | | [place] | | [address] | | | | | [address] | | [address] [place], | | | | | INJECTION, 1 | | [place] | | | | | [place] | | [address] | | | | | CHM,IV | | Phone: | | | | | INFSN,1 HR | | [phone] | | | | | [place] CHM,IV | | Fax: | | | | | INFSN,ADDL | | [phone] | | | | | HR | [...] | | | | | | [facility] [address] | | | | | | [place], | | | | | | [place] [address] | | | | | | [phone] | | | +--------+ + + + [...] 2018 | Visit | Malignancy | [address] | | | | | | [address] | | | | | | [place], [place] | | | | | | [address] | | | | | | [phone] | | | | | | | [...] the | | | | PST | ([facility]) | results section. | + +--------+ + + + | TYPE AND SCREEN | Routin | 07/28/2015 | Acute myeloid | Results for this | | | e | 3:08 PM | leukemia (AML), M4 | procedure are in the | | | | PST | ([facility]) | results section. | + +--------+ + + + | ABO & RH TYPE | Routin | 07/28/2015 | Acute myeloid | Results for this | | | e | 3:08 PM | leukemia (AML), M4 | procedure are in the | | | | PST | ([facility]) | results section. | + +--------+ + + + | TREATMENT PARAMETERS | Routin | 07/28/2015 | 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 | 1:51 PM | leukemia (AML), M4 | | | | | PST | ([facility]) | | + +--------+ + + + | TREATMENT PARAMETERS | Routin | 07/28/2015 | 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 | 1:51 PM | leukemia (AML), M4 | | | | | PST | ([facility]) | | + +--------+ + + + | TREATMENT PARAMETERS | Routin | 07/28/2015 | 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 | 1:51 PM | leukemia (AML), M4 | | | | | PST | ([facility]) | | + +--------+ [...] | | [place] | | PST | ([facility]) | | + +--------+ + + + | TREATMENT PARAMETERS | Routin | 07/28/2015 | Acute myeloid | | | #1 - [place] | e | 1:51 PM | leukemia (AML), M4 | | | | | PST | ([facility]) | | + +--------+ + + + | TREATMENT PARAMETERS | Routin | 07/28/2015 | Acute myeloid | | | #1 - [place] | e | 1:51 PM | leukemia (AML), M4 | | | | | PST | ([facility]) | | + +--------+ [...] [facility] | [address] | [place] [address] | | | SERVICES, | [address] [...] + | [facility] | [address] | [place] [address] | | | SERVICES, | [address] [...]
--- OUTSIDE RECORDS SUMMARY | ~2019-05-17 | XMS | Encounter Summary ---
Demographics + + + | Address | [address] | | | [place] [address] | + + + | Home Phone [...] Team Providers + +------+ + | Care Water Conservation Specialist Name | Role | Phone | + +------+ + | Pending Pcp Addition | PCP | Unavailable | + +------+ + Reason for Visit + + + | Reason | Comments | + + + | Lab Draw | | + + + | Dressing change | Central | + + + Office Visit - E/M Services (Routine) +--------+---------+ + + + + | Status | Reason | Specialty | Diagnoses / | Referred By | Referred To | | | | | Procedures | Contact | Contact | +--------+---------+ + + + + | Closed | Other | Hematology | Diagnoses | Cook, | [facility] | | | | Malignancy | 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, | [address] | [address] | | | | | not having | [address] | Mailcode: | | | | | achieved | [place], [place] | [facility] | | | | | remission | [address] | [place] | | | | | | Phone: | Pavilion | | | | | Procedures | [phone] | [place], [place] | | | | | Post BMT | Fax: | [phone] | | | | | Auth to | [phone] | Phone: | | | | | included | | [phone] | | | | | facility, | | Fax: | | | | | diagnostics, | | [phone] | | | | | office | | | | | | | visits and | | | | | | | surgery | | | +--------+---------+ + + + + Encounter Details +--------+ + + + + | Date | Type | Department | Care Team | Description | +--------+ + + + + | 10/17/ | Clinical | Center for | | Lab Draw; Dressing | | 2016 | Support | Hematologic | | change (Central) | | | Staff | Malignancies at [facility] | | | | | | [address] | | | | | | [address] Mailcode: | | | | | | [facility] | | | | | | [place], | | | | | | [place] [address] | | | | | | [phone] | | | +--------+ + + + [...] as of this encounter Progress Notes Kezia Coronado, RN - 10/18/2015 2:25 PM PDTPt denies fevers, chills, headache, lighthea dedness, cough, SOB, n/v, diarrhea, constipation, difficulty urinating, edema, bleeding, fat igue or rash. Trifusion accessed per protocol. Good blood return noted. Appropriate waste discarded. L abs drawn and sent. Trifusion pulse flushed with 20 mL NS and 5 mL of 10 units/mL Heparin. Patient scheduled for provider visit today with JULIANA Ragland. Pre-procedure pain level: 0. Trifusion intact to left anterior chest wall without erythema or induration. Dressing removed, skin intact without s/s exit site or tunnel infection. U sing a Central Line Dressing Change kit, site cleansed with Chloraprep. Skin prep applied p rior to dressing application. Biopatch applied with SorbaView and Duoderm dressing. Posit mickey pressure valves changed to each port. All lumens pulse flushed with 5 mL of 10 units/mL Heparin. Patient tolerated procedure without difficulty. Post-procedure pain level: 0. No supportive care needs today. Pt discharged after Provider visit ambulatory and accompan ied by family. documented in this encounter Plan of Treatment [...] | Visit | Malignancy | [address] [facility] | | | | | | [address] | | | | | | [place], [place] | | | | | | [address] | | | | | | [phone] | | | | | | | | +--------+---------+ + + + documented as of this encounter Procedures + +--------+ + + + | Procedure Name | Priori | Date/Time | Associated Diagnosis | Comments | | | ty | | | | + +--------+ + + + | BMP + MAG, POC CHM | Urgent | 10/18/2015 | Acute myeloid | Results for this | | | | 10:33 AM | leukemia (AML), M4 | procedure are in the | | | | PDT | ([facility])- primary | results section. 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 | | | | | | (HCC) | | + +--------+ + + + | CBC+DIFF,POC | Urgent | 10/18/2015 | Acute myeloid | Results for this | | | | 10:31 AM | leukemia (AML), M4 | procedure are in the | | | | PDT | ([facility])- primary | results section. 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 | | | | | | (HCC) | | + +--------+ + + + | CMV PCR | Urgent | 10/18/2015 | Acute myeloid | Results for this | | QUANTITATION, PLASMA | | 10:15 AM | leukemia (AML), M4 | procedure are in the | | | | PDT | ([facility])- primary | results section. 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 | | | | | | (HCC) | | + +--------+ + + + | LIVER SET | Urgent | 10/18/2015 | Acute myeloid | Results for this | | (AST,ALT,BILI | | 10:15 AM | leukemia (AML), M4 | procedure are in the | | TOTAL,BILI | | PDT | ([facility])- primary | results section. | | DIRECT,ALK | | | induction failure | | | PHOS,ALB,PROT TOTAL) | | | S/P allogeneic bone | | | | | | marrow transplant | | | | | | (HCC) | | + +--------+ + + + | TACROLIMUS, WHOLE | Urgent | 10/18/2015 | Acute myeloid | Results for this | | BLOOD | | 10:15 AM | leukemia (AML), M4 | procedure are in the | | | | PDT | ([facility])- primary | results section. 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 | | | | | | (HCC) | | + +--------+ + + + | IGG, SERUM | Urgent | 10/18/2015 | Acute myeloid | Results for this | | | | 10:15 AM | leukemia (AML), M4 | procedure are in the | | | | PDT | ([facility])- primary | results section. 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 | | | | | | (HCC) | | + +--------+ + + + | PHOSPHORUS, PLASMA | Urgent | 10/18/2015 | Acute myeloid | Results for this | | | | 10:15 AM | leukemia (AML), M4 | procedure are in the | | | | PDT | ([facility])- primary | results section. 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 | | | | | | ([facility]) | | + +--------+ + + + | ASPERGILLUS | Urgent | 10/18/2015 | Acute myeloid | Results for this | | GALACTOMANNAN | | 10:15 AM | leukemia (AML), M4 | procedure are in the | | ANTIGEN, SERUM | | PDT | ([facility])- primary | results section. 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 | | | | | | (HCC) | | + +--------+ + + + | TREATMENT PARAMETERS | Routin | 10/18/2015 | 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 | 10:14 AM | leukemia (AML), M4 | | | | | PDT | ([facility])- primary | | | | | | induction failure | | + +--------+ + + + | TREATMENT PARAMETERS | Routin | 10/18/2015 | 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 | 10:14 AM | leukemia (AML), M4 | | | | | PDT | ([facility])- primary | | | | | | induction failure | | + +--------+ + + + | TREATMENT PARAMETERS | Routin | 10/18/2015 | 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 | 10:14 AM | leukemia (AML), 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 | | | | | | induction failure | | + +--------+ + + + | TREATMENT PARAMETERS | Routin | 10/18/2015 | 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 | 10:14 AM | leukemia (AML), M4 | | | | | PDT | ([facility])- primary | | | | | | induction failure | | + +--------+ + + + | TREATMENT PARAMETERS | Routin | 10/18/2015 | 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 | 10:14 AM | leukemia (AML), M4 | | | | | PDT | ([facility])- primary | | | | | | induction failure | | + +--------+ + + + | NURSING | Routin | 10/18/2015 | Acute myeloid | | | COMMUNICATION #3 - | e | 10:14 AM | leukemia (AML), M4 | | | [facility] | | PDT | ([facility])- primary | | | | | | induction failure | | + +--------+ + + + | NURSING | Routin | 10/18/2015 | Acute myeloid | | | COMMUNICATION #2 - | e | 10:14 AM | leukemia (AML), M4 | | | [facility] | | PDT | (HCC)- primary | | | | | | induction failure | | + +--------+ + + + | NURSING | Routin | 10/18/2015 | Acute myeloid | | | COMMUNICATION #1 - | e | 10:14 AM | leukemia (AML), M4 | | | [facility] | | PDT | (HCC)- primary | | | | | | induction failure | | + +--------+ + + + | TREATMENT PARAMETERS | Routin | 10/18/2015 | Acute myeloid | | | #1 - [place] | e | 10:14 AM | leukemia (AML), 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 | | | | | | induction failure | | + +--------+ + + + | TREATMENT PARAMETERS | Routin | 10/18/2015 | Acute myeloid | | | #1 - [place] | e | 10:14 AM | leukemia (AML), M4 | | | | | PDT | ([facility])- primary | | | | | | induction failure | | + +--------+ + + + documented in this encounter Results BMP + MAG, POC CHM (10/18/2015 10:33 AM PDT) + +---------+ [...] [facility] | [address] | [place], [place] | | | RUTHIE CARTER OF CARE | [address] | [address] | | | TESTS | | | [...] [facility] | [address] | [place], [place] | | | [facility] POINT OF CARE | [facility] | [address] | | | TESTS | | | [...] + + + + | [facility] | [address] | [place] [address] | | | SERVICES, SPECIAL | [address]ARK [...] | Weak Positive (A) | Undetected, | [facility] | | | QUANTITATIO | | Undetected [...] is just barely above background consistent | [facility] | | with an extremely low level [...] and its performance characteristics determined by the [facility] | | | [facility]. It has not been | | | cleared or approved by the Food and Drug Administration. FDA approval | | | is not required for clinical use of this test, and therefore | | | validation was done as required under the requirements of the Clinical | | | Laboratory Improvement Act of 1988. The [facility] | | | [facility] is a fully licensed and/or | | | accredited clinical laboratory under CLIA, CAP, and the State of | | | [place]. | | + + + + + + + + | Performing | Address | City/State/Zipcode | Phone Number | | Organization | | | | + + + + + | [facility] | [address] | [place] [address] | | | DIAGNOSTIC | [address] [...] INTERPRETATION: Aspergillus galactomannan Antigen by EIA | [facility] | | | LABORATORY | | This [...] | + + + + + | [facility] | [address] | [place] [address] | | | SERVICES, SPECIAL | PARK [...] + | [facility] - | [address] | [place] [address] | | | [place] | | | | + + + [...] [facility] | [address] | [place] [address] | | | SERVICES, CORE | [address] [...] + + | [facility] | [address] | [place] [address] | | | SERVICES, CORE | PARK [...] 10 unit/mL IV flush | Given | 10/18/19 | 50 Units | | Central | | syringe 50 Units 50 Units, | | 16 11:02 | | | Line | | Intracatheter, NEEDED, | | AM PDT | | | | | Starting 10/18/15 at 1425, | | | | | | | Until 10/19/15 at 0008, line | | | | | | | patency | | | | | | + +--------+ + +------+ + +-------+ + +---+ + | Given | 04 | 50 Units | | Central | | | 16 11:01 | | | Line | | | AM PDT | | | | +-------+ + +---+ + | Given | 10/18/19 | 50 Units | | Central | | | 16 11:00 | | | Line | | | AM PDT | | | | +-------+ + +---+ + +---+---+ | | | +---+---+ documented in this encounter"
--- OUTSIDE RECORDS SUMMARY | ~2019-05-17 | XMS | Encounter Summary ---
Demographics + + + | Address | [address] | | | [place] [address] | + + + | Home Phone [...] Providers + +------+ + | Care Information Technology Assistant Name | Role | Phone | + +------+ + | Pending Pcp Addition | PCP | Unavailable | + +------+ + Reason for Visit + + + | Reason | Comments | + + + | Chemotherapy | Tri-fusion, Vidaza | + + + Chemotherapy (Routine) [...] | ic leukemia, | Je Eugene | Je | | | | | not having | [address] | Jabier Debi | | | | | achieved | [place], [place] | Rd Mailcode: | | | | | remission | [address] | [id number] | | | | | Procedures | Phone: | [place] | | | | | [place] | [phone] | Pavilion | | | | | AZACITIDINE | Fax: | [place], [place] | | | | | INJECTION, 1 | [phone] | [address] | | | | | [place] | | Phone: | | | | | CH[facility],IV | | [phone] | | | | | INFSN,1 HR | | Fax: | | | | | [place] [facility] | | [phone] | | | | | INFSN,ADDL | | | | | | | HR Vidaza | | | +--------+---------+ + + + + Encounter Details +--------+ + + + + | Date | Type | Department | Care Team | Description | +--------+ + + + + | 02/21/ | Clinical | [facility] | | Chemotherapy | | 2016 | Support | Hematologic | | (Tri-fusion, Vidaza) | | | Staff | [facility] | | | | | | [address] | | | | | | [place] Mailcode: | | | | | | [id number] [place] | | | | | | [place], | | | | | | [place] [address] | | | | | | [phone] | | | +--------+ + + + [...] + | Blood Pressure | 137/80 | 02/22/2016 7:59 AM | | | | | PDT | | + + + + + | Pulse | 87 | 02/22/2016 7:59 AM | | | | | PDT | | + + + + + | Temperature | 36.5 C (97.7 F) | 02/22/2016 7:59 AM | | | | | PDT | | + + + + + | Respiratory Rate | 16 | 02/22/2016 7:59 AM | | | | | PDT | | + + + + + | Oxygen Saturation | 97% | 02/22/2016 7:59 AM | | | | | PDT | | + + + + + | Inhaled Oxygen | - | - | | | Concentration | | | | + + + + + | Weight | 93.2 kg (205 lb 7.5 | 02/22/2016 7:59 AM | | | | oz) | PDT | | + + + + + | Height | - | - | | + + + + + | Body Mass Index | 26.09 | 01/25/2016 8:24 AM | | | | | PDT | | + + + + + documented in this encounter Progress Notes Jessica Ramirez, ZAFAR - 02/22/2016 7:45 AM PDTPatient arrives ambulatory for Day 2 Cycle 5 with Vidaza. 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 Patient reports he is feeling fine today. He has occassoinal nausea but denies at this time . His rash is resolving. The patient denies colds, flu, fever, infection, diarrhea, constipa tion, signs or symptoms of anemia, fatigue, edema, urinary issues, and signs or symptoms of bleeding. The patient reports that he is eating well and drinking at least two liters of fluid daily. No labs due today. Provider not concerned about K+ of 5.2 yesterday attributing to POC nelson angélica. Last Pentam given 01/27. Patient expecting dose to be given this Sunday. Chemotherapy was checked by 2 RNs. Vidaza was infused per chemotherapy protocol and comple edward without adverse event. Positive blood return noted pre and post infusion. For infusion details, see SEP. Patient left ambulatory and will RTC tomorrow for labs, dressing change, chemo and OV. documented in this encounter Plan of Treatment [...] Carrera | | | | | | [place], [place] | | | | | | [address] | | | | | | [phone] | | | | | | | | +--------+---------+ + + + documented as of this encounter Procedures + +--------+ + + + | Procedure Name | Priori | Date/Time | Associated Diagnosis | Comments | | | ty | | | | + +--------+ + + + | NURSING | Routin | 02/22/2016 | S/P allogeneic | | | COMMUNICATION #5 - | e | 7:50 AM | bone marrow | | | [facility] | | PDT | transplant (HCC) | 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 | | + +--------+ + + + | NURSING | Routin | 02/22/2016 | S/P allogeneic | | | COMMUNICATION #4 - | e | 7:50 AM | bone marrow | | | [facility] | | PDT | transplant (HCC) | 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 | | + +--------+ + + + | TREATMENT PARAMETERS | Routin | 02/22/2016 | 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 | 7:50 AM | leukemia (AML), 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 | | | | | | induction failure | | + +--------+ + + + | TREATMENT PARAMETERS | Routin | 02/22/2016 | 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 | 7:50 AM | leukemia (AML), 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 | | | | | | induction failure | | + +--------+ + + + | TREATMENT PARAMETERS | Routin | 02/22/2016 | 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 | 7:50 AM | leukemia (AML), 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 | | | | | | induction failure | | + +--------+ + + + | TREATMENT PARAMETERS | Routin | 02/22/2016 | 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 | 7:50 AM | leukemia (AML), 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 | | | | | | induction failure | | + +--------+ + + + | TREATMENT PARAMETERS | Routin | 02/22/2016 | 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 | 7:50 AM | leukemia (AML), M4 | | | | | PDT | ([facility])- primary | | | | | | induction failure | | + +--------+ + + + | NURSING | Routin | 02/22/2016 | S/P allogeneic | | | COMMUNICATION #3 - | e | 7:50 AM | bone marrow | | | [facility] | | PDT | transplant (HCC) | 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 | | + +--------+ + + + | NURSING | Routin | 02/22/2016 | S/P allogeneic | | | COMMUNICATION #3 - | e | 7:50 AM | bone marrow | | | [facility] | | PDT | transplant (HCC) | 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[facility])- primary | | | | | | induction failure | | + +--------+ + + + | NURSING | Routin | 02/22/2016 | S/P allogeneic | | | COMMUNICATION #2 - | e | 7:50 AM | bone marrow | | | [facility] | | PDT | transplant (HCC) | 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[facility])- primary | | | | | | induction failure | | + +--------+ + + + | NURSING | Routin | 02/22/2016 | S/P allogeneic | | | COMMUNICATION #2 - | e | 7:50 AM | bone marrow | | | [facility] | | PDT | transplant (HCC) | 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[facility])- primary | | | | | | induction failure | | + +--------+ + + + | NURSING | Routin | 02/22/2016 | S/P allogeneic | | | COMMUNICATION #1 - | e | 7:50 AM | bone marrow | | | [facility] | | PDT | transplant (HCC) | 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 | | + +--------+ + + + | NURSING | Routin | 02/22/2016 | S/P allogeneic | | | COMMUNICATION #1 - | e | 7:50 AM | bone marrow | | | [facility] | | PDT | transplant (HCC) | 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 | | + +--------+ + + + | TREATMENT PARAMETERS | Routin | 02/22/2016 | S/P allogeneic | | | #1 - [facility] | e | 7:50 AM | bone marrow | | | | | PDT | transplant (HCC) | 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 | | + +--------+ + + + | TREATMENT PARAMETERS | Routin | 02/22/2016 | S/P allogeneic | | | #1 - [facility] | e | 7:50 AM | bone marrow | | | | | PDT | transplant (HCC) | 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 | | + +--------+ + + + | TREATMENT PARAMETERS | Routin | 02/22/2016 | S/P allogeneic | | | #1 - [facility] | e | 7:50 AM | bone marrow | | | [...] 70 mg in | New Bag | 02/22/20 | 70 mg | 214 | Central | | NaCl 0.9 % IV 70 mg (rounded | | 16 8:37 | | mL/hr | Line | | from 67.84 mg = 32 mg/m2 | | AM PDT | | | | | 2.12 m2 Treatment plan recorded | | | | | | | BSA), intravenous, Administer | | | | | | | over 30 Minutes, ONCE, 1 dose, | | | | | | | 02/22/16 at 0815, HIGH RISK | | | | | | | MEDICATION-CHEMOTHERAPY | | | | | | | Administration must be completed | | | | | | | within 1 hour of preparation., | | | | | | + +---------+ +-------+-------+ + +---+---+ | | | +---+---+ + +-------+ + +---+---+ | heparin 10 unit/mL IV flush | Given | 02/22/20 | 50 Units | | | | syringe 50 Units 50 Units, | | 16 9:20 | | | | | Intracatheter, NEEDED, | | AM PDT | | | | | Starting 02/22/16 at 0816, | | | | | | | Until 02/22/16 at 1532, line | | | | | | | patency | | | | | | + +-------+ + +---+---+ +-------+ + +---+ + | Given | 02/22/20 | 50 Units | | Central | | | 16 8:17 | | | Line | | | AM PDT | | | | +-------+ + +---+ + | Given | 02/22/20 | 50 Units | | Central | | | 16 8:16 | | | Line | | | AM PDT | | | | +-------+ + +---+ + +---+---+ | | | +---+---+ + +-------+ +------+---+---+ | ondansetron (ZOFRAN) tablet 8 | Given | 02/22/20 | 8 mg | | | | mg 8 mg, oral, ONCE, 1 dose, Tue | | 16 8:11 | | | | | 02/22/16 at 0815 | | AM PDT | | | | + +-------+ +------+---+---+ +---+---+ | | | +---+---+ documented in this encounter"
--- OUTSIDE RECORDS SUMMARY | ~2019-05-17 | XMS | Encounter Summary ---
Demographics + + + | Address | [address] | | | [place] [address] | + + + | Home Phone [...] Team Providers + +------+ + | Care Scrap Wheeler Name | Role | Phone | + +------+ + | Pending Pcp Addition | PCP | Unavailable | + +------+ + Reason for Visit + + + | Reason | Comments | + + + | Lab Draw | PIV | + + + | Chemotherapy | Cycle 6 Day 1 Vidaza | + + + Chemotherapy (Routine) [...] | | myelomonocyt | [address] | [address] | | | | | ic leukemia, | Paulina Jabier | [facility] | | | | | not having | [address] | Jabier Carrera | | | | | achieved | [place], [place] | Rd Mailcode: | | | | | remission | [address] | [id number] | | | | | Procedures | Phone: | [place] | | | | | [place] | [phone] | Pavilion | | | | | AZACITIDINE | Fax: | [place], [place] | | | | | INJECTION, 1 | [phone] | [address] | | | | | [place] | | Phone: | | | | | [facility],IV | | [phone] | | | | | INFSN,1 HR | | Fax: | | | | | [place] [facility],IV | | [phone] | | | | | INFSN,ADDL | | | | | | | HR Vidaza | | | +--------+---------+ + + + + Encounter Details +--------+ + + + + | Date | Type | Department | Care Team | Description | +--------+ + + + + | 03/20/ | Clinical | Center for | | Lab Draw (PIV ); | | 2015 | Support | Hematologic | | Chemotherapy (Cycle | | | Staff | [facility] | | 6 Day 1 Vidaza) | | | | [address] | | | | | | [place] Mailcode: | | | | | | [id number] [place] | | | | | | [place], | | | | | | [place] [address] | | | | | | [phone] | | | +--------+ + + + [...] + + + | Blood Pressure | 129/72 | 03/20/2016 8:20 AM | | | | | PDT | | + + + + + | Pulse | 82 | 03/20/2016 8:20 AM | | | | | PDT | | + + + + + | Temperature | 37 C (98.6 F) | 03/20/2016 8:20 AM | | | | | PDT | | + + + + + | Respiratory Rate | 18 | 03/20/2016 8:20 AM | | | | | PDT | | + + + + + | Oxygen Saturation | 100% | 03/20/2016 8:20 AM | | | | | PDT | | + + + + + | Inhaled Oxygen | - | - | | | Concentration | | | | + + + + + | Weight | 100.4 kg (221 lb 5.5 | 03/20/2016 8:20 AM | | | | oz) | PDT | | + + + + + | Height | - | - | | + + + + + | Body Mass Index | 28.11 | 01/25/2016 8:24 AM | | | | | PDT | | + + + + + documented in this encounter Progress Notes Rupa Lantigua RN - 03/20/2016 9:10 AM PDT22 gauge PIV placed in patient s left antcubit ae, using an IV start kit. PIV with excellent blood return. Labs drawn and sent. PIV flushe d with 10 mL NS without any problems. Sterile transparent dressing applied. Patient tolerat ed procedure well. Rochelle Cordero - 03/20 8:37 AM PDT Chemotherapy Nurse Note Physician: Yari Garcia MD Allergies: Khurram is allergic to chlorhexidine towelette. Pre-Chemotherapy Pain Score: Patient reports a pain level of 0 today. Narrative: Khurram Kelly is a 25 yo male with a h/o primary refractory AML. Patient is s/p tBuCy-conditioned unrelated donor PBSC transplant (Day 0 = 08/26/2015) and continues maintenance Vidaza. Patient arrives ambulatory with spouse for Cycle 6 Day 1 Vidaza. Nursing Assessment: VSS. Patient alert and oriented x3. Patient reports feeling well and is slightly anxious regarding last cycle of chemotherapy and upcoming BMBx. Cushingoid appeara nce. Fever / Chills: no; Dyspnea / Cough: no; Dizziness: no; S/S bleeding: no; Edema: no; Ra sh: no. Per pt, rash has completely resolved; Neuropathy: no; Fatigue / Malaise: no; Nausea / Vomiting: Patient reports several episodes of nausea per day that subsides after 30 second s to 1 minutes. Does not require antiemetics. Denies emesis; Constipation / Diarrhea: no; Ur inary issues: no. Patient reports he is eating and drinking 2 L per day without difficulty. Vascular Access: 22 gauge PIV placed in patient s left antcubitae, using an IV start kit by Rupa Lantigua RN. PIV with excellent blood return. Labs drawn and sent. PIV flushed with 10 mL NS without any problems. Sterile transparent dressing applied. Patient tolerated procedure well. Prior to D/C, PIV removed with tip intact - no redness, swelling, bruising noted. Site dres sed with gauze and coban. Labs: CBC with diff last 72 hours (or 3 results) Recent Labs 03/20/16 0844 WBC 7.8 HB 12.7* HCT 37.4* PLT 173 MONOPERC 8.5 BASOPERC 0.8 EOSPERC 1.8 Chemistries: Last 72 Hours (or 3 results): Recent Labs 03/20/16 0848 NA 142 K 4.3 CL 100 BICARB 26 BUN 13 CR 0.9 GLU 84 CA 9.3 MG 2.1 Treatment Provided: For Treatment Done in Clinic Today: see MAR Infusion Plan: No transfusions or electrolyte replacement needed. Per Aspen Cummins's note o n 03/15/2016 - D/C pentamidine and restart Bactrim. Patient taking Bactrim and In-basket sent to remove pentamidine from infusion plan. Chemo Plan: Labs results reviewed and no treatment parameters prior to starting Cycle 6 Vidaza. Treatme nt BSA adjusted. 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 Pre-medicati ons of Ativan 1 mg PO given as ordered. Chemotherapy was checked by 2 RNs. Vidaza 75 mg was infused per chemotherapy protocol and c ompleted without adverse event. Positive blood return noted pre and post infusion. For infus ion details, see MAR. Prior to D/C, all questions and concerns addressed. Patient was reminded to call clinic wit h temp > 100.4, chills, s/s of bleeding or uncontrolled N/V/D/C. Patient verbalizes under standing. Patient was instructed to check out at the desk attendant prior to leaving the clinic. Patient d/c d ambulatory with spouse in stable condition. Patient scheduled to RTC tomorr ow for Cycle 6 Day 2 Vidaza. Rochelle Ozuna RN documented in this encoun [...] [address] | | | | | | [place], [place] | | | | | | [address] | | | | | | [phone] | | | | | | | | +--------+---------+ + + + documented as of this encounter Procedures + +--------+ + + + | Procedure Name | Priori | Date/Time | Associated Diagnosis | Comments | | | ty | | | | + +--------+ + + + | BMP + MAG, POC CHM | Routin | 03/20/2016 | S/P allogeneic | Results for this | | | e | 8:48 AM | bone marrow | procedure are [...] + + | CBC+DIFF,POC | Routin | 03/20/2016 | S/P allogeneic | Results for this | | | e | 8:44 AM | bone marrow | procedure are in the | | | | PDT | transplant ([facility]) | results section. 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[facility])- primary | | | | | | induction failure | | + +--------+ + + + | CMV PCR | Routin | 03/20/2016 | S/P allogeneic | Results for this | | QUANTITATION, PLASMA | e | 8:30 AM | bone marrow | procedure are in the | | | | PDT | transplant ([facility]) | results section. 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[facility])- primary | | | | | | induction failure | | + +--------+ + + + | LIVER SET | Urgent | 03/20/2016 | S/P allogeneic | Results for this | | (AST,ALT,BILI | | 8:30 AM | bone marrow | procedure are [...] + | TREATMENT PARAMETERS | Routin | 03/20/2016 | 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:20 AM | leukemia (AML), 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 | | | | | | induction failure | | + +--------+ + + + | TREATMENT PARAMETERS | Routin | 03/20/2016 | 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:20 AM | leukemia (AML), 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 | | | | | | induction failure | | + +--------+ + + + | TREATMENT PARAMETERS | Routin | 03/20/2016 | 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:20 AM | leukemia (AML), 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 | | | | | | induction failure | | + +--------+ + + + | TREATMENT PARAMETERS | Routin | 03/20/2016 | 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:20 AM | leukemia (AML), M4 | | | | | PDT | ([facility])- primary | | | | | | induction failure | | + +--------+ + + + | TREATMENT PARAMETERS | Routin | 03/20/2016 | 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:20 AM | leukemia (AML), M4 | | | | | PDT | ([facility])- primary | | | | | | induction failure | | + +--------+ + + + | NURSING | Routin | 03/20/2016 | Acute myeloid | | | COMMUNICATION #3 - | e | 8:20 AM | leukemia (AML), M4 | | | [facility] | | PDT | ([facility])- primary | | | | | | induction failure | | + +--------+ + + + | NURSING | Routin | 03/20/2016 | Acute myeloid | | | COMMUNICATION #2 - | e | 8:20 AM | leukemia (AML), M4 | | | [facility] | | PDT | ([facility])- primary | | | | | | induction failure | | + +--------+ + + + | NURSING | Routin | 03/20/2016 | Acute myeloid | | | COMMUNICATION #1 - | e | 8:20 AM | leukemia (AML), M4 | | | [facility] | | PDT | ([facility])- primary | | | | | | induction failure | | + +--------+ + + + | TREATMENT PARAMETERS | Routin | 03/20/2016 | Acute myeloid | | | #1 - [facility] | e | 8:20 AM | leukemia (AML), M4 | | | | | PDT | ([facility])- primary | | | | | | induction failure | | + +--------+ + + + | TREATMENT PARAMETERS | Routin | 03/20/2016 | Acute myeloid | | | #1 - [facility] | e | 8:20 AM | leukemia (AML), 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 | | | | | | induction failure | | + +--------+ + + + documented in this encounter Results BMP + MAG, POC CHM (03/20/2016 8:48 AM PDT) + +---------+ + + + [...] +---------+ + + + | GLUCOSE, | 84 | 60 - 99 mg/dL | [facility] [...] + + + | LDH, POC | 258 (H) | 0 - 206 U/L | [...] [facility] | [address] | [place], [place] | | | RUTHIE CARTER OF [place] | [address] | [address] | | | TESTS | | | | + + + + + CBC+DIFF,POC (03/20/2016 8:44 AM PDT) + + + + + + | Component | Value | Ref Range | Performed | Pathologist | | | | | At | Signature | + + + + + + | WBC POC | 7.8 | 4.4 - 11.0 | [facility] - [...] + + + | HCT POC | 37.4 (L) | 41.0 - 53.0 % | [facility] - | | | | | | [facility] | | | | | | [facility] POINT | | | | | | OF CARE | | | | | | TESTS | | + + + + + + | MCV POC | 105.9 (H) | 80.0 - 96.0 fL | [...] + + + | PLT POC | 173 | 150 - 400 | [facility] - [...] + + + + | NEUTROPHIL% | 69.1 | 50.0 - 70.0 % | [facility] - | | | POC | | | [facility] | | | | | | [facility] POINT | | | | | | OF CARE | | | | | | TESTS | | + + + + + + | LYMPH% POC | 19.8 | 18 - 42 % | [facility] - | | | | | | [facility] | | | | | | [facility], POINT | | | | | | OF CARE | | | | | | TESTS | | + + + + + + | MONO %, POC | 8.5 | 3.5 - 9.0 % | [facility] [...] + + | BASO %, POC | 0.8 | 0.0 - 2.0 % | [facility] - | | | | | | [facility] | | | | | | [facility] POINT | | | | | | OF CARE | | | | | | TESTS | | + + + + + + | NEUTROPHIL# | 5.4 | 1.8 - 7.7 | [facility] - [...] [facility] | [address] | [place], [place] | | | [facility] | [address] | [address] | | | TESTS | | | | + + + + + LIVER SET (AST,ALT,BILI TOTAL,BILI DIRECT,ALK PHOS,ALB,PROT TOTAL) (03/20/2016 8:30 AM PDT ) + +---------+ + + [...] + + + | ALK PHOS | 79 | 53 - 128 U/L | [facility] [...] + + + | ALT (SGPT) | 88 (H) | <=60 U/L | [facility] | [...] | + + + + + | [facility] | [address] | [place] [address] | | | SERVICES, INDRA | [address] | | | + + + + + CMV PCR QUANTITATION, PLASMA (03/20/2016 8:30 AM PDT) + + + + + [...] 2 fold may not reflect true | [facility] | | biological changes and must [...] | | | characteristics determined by the [facility] | | | [facility]. It has not been cleared or approved by | | | the Food and Drug Administration. FDA approval is not required for | | | clinical use of this test, and therefore validation was done as | | | required under the requirements of the Clinical Laboratory Improvement | | | Act of 1988. The [facility] | | | Diagnostic Center is a fully licensed and/or accredited clinical | | | laboratory under CLIA, CAP, and the [facility]. | | + + + + + + + + | Performing | Address | City/State/Zipcode | Phone Number | | Organization | | | | + + + + + | [facility] | [address] | [place] [address] | | | DIAGNOSTIC | [address] [...] 75 mg in | New Bag | 03/20/20 | 75 mg | 215 | | | NaCl 0.9 % IV 75 mg (rounded | | 16 9:25 | | mL/hr | | | from 72.64 mg = 32 mg/m2 | | AM PDT | | | | | 2.27 m2 Treatment plan recorded | | | | | | | BSA), intravenous, Administer | | | | | | | over 30 Minutes, ONCE, 1 dose, | | | | | | | 03/20/16 at 0900, HIGH RISK | | | | | | | MEDICATION-CHEMOTHERAPY | | | | | | | Administration must be completed | | | | | | | within 1 hour of preparation., | | | | | | + +---------+ +-------+-------+------+ +---+---+ | | | +---+---+ + +-------+ +------+---+---+ | LORazepam (ATIVAN) tablet 1 mg | Given | 03/20/20 | 1 mg | | | | 1 mg, oral, NEEDED, 1 dose, | | 16 8:55 | | | | | Starting 03/20/16 at 0850, | | AM PDT | | | | | Until Sun03/20/16 at 0855, | | | | | | | nausea/vomiting | | | | | | + +-------+ +------+---+---+ +---+---+ | | | +---+---+ documented in this encounter"
--- OUTSIDE RECORDS SUMMARY | ~2019-05-17 | XMS | Encounter Summary ---
Demographics + + + | Address | [address] | | | [place] [address] | + + + | Home Phone [...] Team Providers + +------+ + | Care Spinner Hydraulic Name | Role | Phone | [...] | | Malignancy | Acute | Yari J, MD | [facility] [address] | | | | | 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, | [address] | [address] | | | | | not having | [address]ally [address]ger | Mailcode: | | | | | achieved | [place], [place] | [facility] | | | | | remission | [address] | [facility] | | | | | | Phone: | [facility] | | | | | Procedures | [phone] | [place], [place] | | | | | Post BMT | Fax: | [address] | | | | | Auth to | [phone] | Phone: | | | | | included | | [phone] | | | | | facility, | | Fax: | | | | | diagnostics, | | [phone] | | | | | office | | | | | | | visits and | | | | | | | surgery | | | +--------+---------+ + + + + Encounter Details +--------+ + + + + | Date | Type | Department | Care Team | Description | +--------+ + + + + | 05/24/ | Diagnostic | Center for | | Lab Draw | | 2016 | Visit | Hematologic | | | | | | Malignancies at | | | | | | [facility] | | | | | | [address] | | | | | | Wally [place] Mailcode: | | | | | | [facility] | | | | | | [place], | | | | | | [place] [address] | | | | | | [phone] | | | +--------+ + + + [...] this encounter Progress Notes Lincoln Hermosillo - 05/24/2017 10:45 AM PSTLeft AC accessed with a 23 gauge butterfly needle. By Vladislav Son MA Snuff Grinder And Screener. Labs drawn and sent. Tolerated procedure well. Site dressed w ith sterile gauze and Coban. Patient scheduled for provider visit today with Dr. Garcia. documented in this encount er Plan of [...] Rd | | | | | | [place], [place] | | | | | | [address] | | | | | | [phone] | | | | | | | | +--------+---------+ + + + documented as of this encounter Procedures + +--------+ + + + | Procedure Name | Priori | Date/Time | Associated Diagnosis | Comments | | | ty | | | | + +--------+ + + + | CMP, POC (BMP+LFT) | Urgent | 05/24/2017 | S/P allogeneic | Results for this | | | | 11:07 AM | bone marrow | procedure are in the | | | | PST | transplant (HCC) | results section. | + +--------+ + + + | CBC+DIFF,POC | Urgent | 05/24/2017 | S/P allogeneic | Results for this | | | | 11:06 AM | bone marrow | procedure are in the | | | | PST | transplant ([facility]) | results section. | + +--------+ + + + | MAGNESIUM, PLASMA | Urgent | 05/24/2017 | S/P allogeneic | Results for this | | | | 10:54 AM | bone marrow | procedure are in the | | | | PST | transplant ([facility]) | results section. | + +--------+ + + + documented in this encounter Results CMP, POC (BMP+LFT) (05/24/2017 [...] MACARIO | [address] | [place], [place] | | | RUTHIE CARTER OF [place] | [facility] | [address] | | | TESTS | | | [...] | | | | | | OF [place] | | | | | | TESTS [...] - | | | | | | MARNETTEIAM | | | | | | EMMA [...] SORTO | [address] | [place], [place] | | | RUTHIE CARTER [address] [place] | [address] | [address] | | | TESTS | | | [...] YESSICA LOZA | [address] | [place] [address] | | | SERVICES, CORE | [address] | | | + + + + + documented in this encounter Visit Diagnoses + + | Diagnosis | + + | 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
--- OUTSIDE RECORDS SUMMARY | ~2019-05-17 | XMS | Encounter Summary ---
Demographics + + + | Address | [address] | | | [place] [address] | + + + | Home Phone [...] Team Providers + +------+ + | Care Nephrology Social Worker Name | Role | Phone | [...] | | | | | | | [address] | | | | | | | [address] | | | | | | | [place], | | | | | | | [place] | | | | | | | [address] | | | | | | | Phone: | | | | | | | [phone] | | | | | | | Fax: | | | | | | | [phone] | +--------+--------+ + + + + Encounter [...] | | | | Christian Barry | [place], [place] | | | | | [address] | [address] | | | | | Debi Burger Mailcode: | [phone] | | | | | [facility] | | | | | | [place], | | | | | | [place] [address] | | | | | | [phone] | | | +--------+---------+ + + + [...] a new central line and admit to [facility] for transplant on Aug 18, 2015 Transplant day Aug 26, 2015 Christina Hernandez will arrange and keep you posted documented in this encounter Progress Notes Yari Garcia MD - 08/29/2015 11:32 AM PST [facility] 08/06/15 Diagnosis: AML - [...] his L ankle. He was evaluated at [facility] on 06/[address] angiogram negative [...] acute myelomonocytic leukemia. He was referred to [facility] for further evaluation and man agement of his newly dx'd AML. Pt was admitted to [facility] on 05/26/15. Peripheral blood was sent for [...] CD34, variable CD56, variable CD117, and dim [id number] mickey; promonocyte immunophenotype (70% by flow): CD11b, [...] Psychiatric: Memory, affect and judgment normal. Clinical Take Away Worker on 08/05/2015 Component Date Value WBC POC [...] 13 CREATININE, POC 08/05/2015 1.1 ALK PHOS, [facility] POC 08/05/2015 66 ALT, [facility] POC 08/05/2015 30 AST, [facility] POC 08/05/2015 21 BILIRUBIN TOTAL, [facility] POC 08/05/2015 0.7 ALBUMIN, [facility] POC 08/05/2015 3.9 PROTEIN TOTAL, [facility] POC 08/05/2015 7.2 LD TOTAL, PLASMA 08/05/2015 140 LD CMNT 08/05/2015 No Hemo PRODUCT DESCRIPTION 08/05/2015 PLATELETS PHERESIS, LEUKOCYTE REDUCED, IRRADIATED PRODUCT UNIT # 08/05/2015 [id number] UNIT ABO 08/05/2015 A UNIT RH 08/05/2015 POS STATUS OF UNIT 08/05/2015 Presumed Transfused EXPIRATION DATE 08/05/20152015725376491588 BLOOD TYPE BARCODE 08/05/2015 6200 BLOOD PRODUCT CODE 08/05/2015 [id number] POTASSIUM, PLASMA (LAB) 08/05/2015 4.9 POTASSIUM CMNT [...] Constipation -lactulose -senna/colace Yari Garcia MD, MS Window Trimmerfootwear sales representative [facility] [address] [place] [address] ates, NEDA Ferreira - 08/05/2015 2:06 PM [...] | Visit | Malignancy | [address] [facility] | | | | | | [address] | | | | | | [place], [place] | | | | | | [address] | | | | | | [phone] | | | | | | | | +--------+---------+ + + + documented as of this encounter Visit Diagnoses + + | Diagnosis | + + | Acute myeloid leukemia (AML), M4 (HCC) - Primary | + + documented in this encounter"
--- OUTSIDE RECORDS SUMMARY | ~2019-05-17 | XMS | Encounter Summary ---
Demographics + + + | Address | [address] | | | [place] [address] | + + + | Home Phone [...] Team Providers + +------+ + | Care Ad Setter Name | Role | Phone | [...] | | | | | | [place], | | | | | | | [place] | | | | | | | [address] | | | | | | | Phone: | | | | | | | [phone] | | | | | | | Fax: | | | | | | | [phone] | +--------+--------+ + + + + Encounter Details +--------+---------+ + + + | Date | Type | Department | Care Team | Description | +--------+---------+ + + + | 05/22/ | Office | Center for | Aspen Cummins FNP | S/P allogeneic bone | | 2016 | Visit | Hematologic | [address] | marrow transplant | | | | Malignancies at | [address] | (HCC) (Primary Dx) | | | | [address] | [place], [place] | | | | | [address] | [address] | | | | | [address] Mailcode: | [phone] | | | | | [facility] [place] | | | | | | [place], | | | | | | [place] [address] | | | | | | [phone] | | | +--------+---------+ + + + [...] + + + | Blood Pressure | 139/75 | 05/22/2016 3:50 PM | | | | | PST | | + + + + + | Pulse | 72 | 05/22/2016 3:50 PM | | | | | PST | | + + + + + | Temperature | 36.7 C (98 F) | 05/22/2016 3:50 PM | | | | | PST | | + + + + + | Respiratory Rate | 16 | 05/22/2016 3:50 PM | | | | | PST | | + + + + + | Oxygen Saturation | 99% | 05/22/2016 3:50 PM | | | | | PST | | + + + + + | Inhaled Oxygen | - | - | | | Concentration | | | | + + + + + | Weight | 95.7 kg (211 lb) | 05/22/2016 3:50 PM | | | | | PST | | + + + + + | Height | - | - | | + + + + + | Body Mass Index | 26.79 | 01/25/2016 8:24 AM | | | | | PDT | | + + + + + documented in this encounter Progress Notes Aspen Cummins FNP - 05/22/2016 3:45 PM PST 05/22/2016 [facility] Primary CHM MD: Yari Garcia MD Primary Oncologist: Yari Garcia MD Diagnosis: AMML, primary refractory Transplant Date: 08/27/15 Donor: MM URD (DPB1 permissive antigen mismatch, male, [id number]) Identifying Data: Khurram Kelly is a 25 [...] ankle. He was evaluated at [facility] ED on 06/[address] [...] CD34, variable CD56, variable CD117, and dim [id number] mickey; promonocyte immunophenotype (70% by flow): CD11b, [...] durin g taper. He is currently day +269 s/p transplant, s/p 6 cycles of azacitidine and returns to clinic today for scheduled follow-up. Interim History: Khurram was most recently evaluated in our [facility] clinic by Yari Garcia MD on 05/15/16. At that time, he was noted to have a faint rash over his upper abd, chest. Prednisone was increased from 5 mg po every other day to 5 mg po daily. Rash resolved quickly, "even before we started the extra prednisone". He notes acne to his chest but o/w feels his skin is clear. His appetite remains good, eating and drinking well. Intermittent nausea persists, typically lasts for a few seconds then resolves without intervention. Active at home. Just returned from a trip [facility] the [facility], climbed up [facility] [address] [place] with his and son then took a 3 mile walk. Review of Systems Constitutional: Negative for chills, fever and malaise/fatigue. HENT: Negative for headaches, congestion and sore throat. Respiratory: Negative for cough and shortness of breath. Cardiovascular: Negative for chest pain and leg swelling. Gastrointestinal: Positive for nausea. Negative for abdominal pain, diarrhea and vomiting. Genitourinary: Negative for dysuria. Musculoskeletal: Negative for back pain, joint pain and myalgias. Skin: Negative for itching and rash. Neurological: Negative for dizziness, tingling, tremors and weakness. Psychiatric/Behavioral: The patient is nervous/anxious (unchanged, well controlled with prn xanax; feels it's worse when he's bored and has time to think). All other systems reviewed and are negative. [...] capsule by mouth before babak akfast. predniSONE 5 mg oral tablet Take 5 mg (one tablet) by mouth once daily. tacrolimus 0.5 mg oral capsule Take 0.5 mg (one capsule) by mouth twice daily trimethoprim-sulfamethoxazole 160-800 mg oral tablet Take 1 tablet by mouth twice daily (every Sunday and ). No current facility-administered medications for this visit. Allergies Allergen Reactions Chlorhexidine Towelette Rash PAVAN cloths - ok to use Chloraprep for dresssing change per pt. Filed Vitals: 05/22/2016 3:50 PM Weight: 95.7 kg (211 lb) BP: 139/75 Pulse: 72 Temp: 36.7 C (98 F) TempSrc: Oral Resp: 16 SpO2: 99% PainSc: 0 - Zero BMI: 26.79 kg/(m^2) Physical Exam Constitutional: He is well-developed, [...] is warm and dry. No rash noted. Acne to chest Psychiatric: Mood and affect normal. Vitals reviewed. Lab Results Component Value Date WBC 8.6 05/22/2016 HB 14.2 05/22/2016 HCT 41.8 05/22/2016 PLT 199 05/22/2016 MCV 100.0 05/22/2016 RDW 44.9 05/01/2016 Lab Results Component Value Date BICARB 26 05/22/2016 TBILI 0.3 05/22/2016 CA 9.5 05/22/2016 CL 103 05/22/2016 CR 0.7 05/22/2016 GLU 100 (H) 05/22/2016 AP 104 05/22/2016 TP 7.4 05/22/2016 BUN 8 05/22/2016 ALB 4.1 05/22/2016 AST 36 05/22/2016 NA 138 05/22/2016 K 3.9 05/22/2016 ALT 83 (H) 05/22/2016 Assessment/Plan: 1. 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 Peripheral blood counts remain WNL. He has no evidence of disease by per ipheral smear. His most recent marrow studies completed 04/19/16 showed a patchy hypocellula r (less than 5% to 50%) bone marrow with trilineage hematopoiesis and < 3% myeloid blasts. K aryotype 46,XY[20]. VNTR showed no detectable host cells. 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 Prednisone was increased back to 20 mg po daily. Skin bx 02/10/16 showed vaculolar inter face mixed dermatitis with eosinophils. DDx included GvHD and drug hypersensitivity reaction . Rash resolved with increased dose prednisone. He has tolerated a taper of steroids to 5 mg po every other day then developed a faint recurrent rash. Prednisone increased to 5 mg po d aily on 05/15/16. Continues low dose tacrolimus, budesonide. Rash resolved, no evidence of GvHD noted. --> hold prednisone at 5 mg po daily --> continue tacrolimus 0.5 mg bid without additional taper --> decrease budesonide to daily dosing and if pt remains asymptomatic, d/c next visit 3. Infectious Disease: Afebrile without localizing s/s infection. He continues prophylactic acyclovir and bactrim. Hx post-transplant CMV reactivation, received a treatment course of valganciclovir. His most recent CMV PCR on 05/15/16 was undetected. Immune reconstitution preciado el collected 11/22/15 showed normal total T cells with increased CD8+ T cell subsets, normal total NK cells, decreased B cells with decreased margarita B cells and minimal immune activatio n with CD4 count 385. Post transplant vaccines held due to azacitidine maintenance therapy; began vaccines after therapy completed. PCV13 #1 and inactivated influenza vaccine dosed . --> continue acyclovir and bactrim --> PCV13 #2 due ~06/19/16 --> repeat inactivated influenza vaccine ~06/19/16 --> d/c CMV monitoring --> repeat immune reconstitution panel next visit Lab Results Component Value Date CMVQUANTPCR Undetected 05/15/2016 CMVQUANTPCR Undetected 05/01/2016 CMVQUANTPCR Undetected 04/19/2016 CMVQUANTPCR Undetected 04/12/2016 4. Fluid, Electrolyte and Nutrition: Appetite is good. Continues to eat well with adequate po fluid intake. Very mild intermittent nausea, resolves without intervention. No c/o V/D. H is electrolytes are reviewed and are within acceptable [...] a peer support group or support at [facility], h owever he feels this is no longer necessary. Notes his anxiety is worse when he is bored, fe els much better at home in [facility] surrounded by supportive friends and family. --> continue current meds --> re-refer to Transitions, support groups should pt wish 7. Follow up --> RTC to f/u with me on 05/29/16, sooner slimen OR[facility] [address] [facility] Mailcode: [place] [address] documented in this enc ounter [...] | 2019 | Visit | Malignancy | [address] [place] [address] | | | | | | [facility] | | | | | | [place], [place] | | | | | | [address] | | | | | | [phone] | | | | | | | | +--------+---------+ + + + documented as of this encounter Visit Diagnoses + + | Diagnosis | + + | 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HCC) - Primary Bone marrow replaced by | | transplant | + + documented in this encounter
--- OUTSIDE RECORDS SUMMARY | ~2019-05-17 | XMS | Encounter Summary ---
Demographics + + + | Address | [address] | | | [place] [address] | + + + | Home Phone [...] Team Providers + +------+ + | Care Cloak Room Attendant Name | Role | Phone | + +------+ + | Zayda Hinton | PCP | | + +------+ + Encounter Details +--------+ + + + + | Date | Type | Department | Care Team | Description | +--------+ + + + + | 10/12/ | Inside | [facility] | Aspen Walters FNP | | | 2017 | Referral | [address] | [address] [facility] | | | | Order | Deshaun Jewell Mailcode: | [address] | | | | | [facility] for | [place], [place] | | | | | [facility] and Healing, | [address] | | | | | Building [address] | [phone] | | | | | [place], [place] | | | | | | [address] | | | | | | [phone] | | | +--------+ + + + [...] 2019 | Visit | Malignancy | [address] [facility] | | | | | | [address] | | | | | | [place], [place] | | | | | | [address] | | | | | | [phone] | | | | | | | | +--------+---------+ + + + documented as of this encounter Results FLEXIBLE SIGMOIDOSCOPY (10/17/2016 3:55 PM PDT) + + | Specimen | + + | | + + + + ---+ | Narrative | Performed At | + + ---+ | MRN: | [facility] | | [id number] Date: 10/17/2016Patient Name: Khurram | ENDOSCOPY | | LeticiaOrder #: [id number] of : 1990CSN: | | | [id number] Type: AmbulatoryRoom: [facility] 3Procedure: | | | Flexible SigmoidoscopyIndications: Suspected | | | fegct-uantpu-ongk diseaseProviders: CHAY SALVADOR MD | | | (Doctor), MILDRED BELCHER, RN (Nurse), | | | SHU HARRIS, Post Office Manager (Post Office Manager)Referring MD: ASPEN | | | WALTERS, FNPRequesting Provider: Medicines: See the | | | [...] | | | The Olympus [id number] Endoscope #[id number] | | | was introduced through the [...] Biopsied.Recommendation: | | | - Await pathology results.CHAY SALVADOR MD10/17/2016 4:35:11 | | | PMNumber of Addenda: 0Note Initiated On: 10/17/2016 3:55 PM | | | monitored: oxygen saturation, heart rate, blood pressure, and response | | | to care. | | |Impression: - Erythematous mucosa in the rectum. Biopsied. | | |Recommendation: - Await pathology results. | | |CHAY SALVADOR MD | | |10/17/2016 4:35:11 PM [...] ---+ | MRN: | [facility] | | [id number] Date: 10/17/2016Patient Name: Khurram | ENDOSCOPY | | BrandyquesOrder #: [id number] of : 1990CSN: | | | [id number] Type: AmbulatoryRoom: [facility] 3Procedure: | | | Upper GI endoscopyIndications: Suspected phmbd-cpiwsc-rsvg | | | disease, Nausea with vomitingProviders: CHAY | | | MD MODESTO (Doctor), MILDRED BELHCER RN (Nurse), | | | SHU HARRIS, Post Office Manager (Post Office Manager)Referring MD: | | | ASPEN WALTERS FNPRequesting Provider: Medicines: | | | Midazolam [...] The | | | Olympus [id number] Endoscope #[id number] was introduced | | | through the [...] Perform a flexible sigmoidoscopy | | | today.CHAY SALVADOR MD10/17/2016 4:29:48 PMNumber of Addenda: 0Note | | | Initiated On: 10/17/2016 3:54 PM | | | - Erythematous mucosa in the stomach. Biopsied. | | | - Normal examined duodenum. Biopsied. | | |Recommendation: - Await pathology results. | | | - Perform a flexible sigmoidoscopy today. | | |CHAY SALVADOR MD | | |10/17/2016 4:29:48 PM [...] Intractable vomiting with nausea, unspecified vomiting type - Primary | + + documented in this encounter"
--- OUTSIDE RECORDS SUMMARY | ~2019-05-17 | XMS | Encounter Summary ---
Demographics + + + | Address | [address] | | | [place] [address] | + + + | Home Phone [...] Team Providers + +------+ + | Care Commercial Fishing Vessel Operator Name | Role | Phone | + +------+ + | Zayda Hinton | PCP | | + +------+ + Encounter Details +--------+ + + + + | Date | Type | Department | Care Team | Description | +--------+ + + + + | 11/07/ | Pharmacy | Specialty Pharmacy | | | | 2016 | Visit | Services [address] | | | | | | [address] | | | | | | [place], [place] | | | | | | [address] | | | | | | [phone] | | | +--------+ + + + [...] Rd | | | | | | [place], [place] | | | | | | [address] | | | | | | [phone] | | | | | | | | +--------+---------+ + + + documented as of this encounter Visit Diagnoses Not on filedocumented in this encounter"
--- OUTSIDE RECORDS SUMMARY | ~2019-05-17 | XMS | Encounter Summary ---
Demographics + + + | Address | [address] | | | [place] [address] | + + + | Home Phone [...] + +------+ + | Care Information Systems Consultant Name | Role | Phone | + +------+ + | Zayda Hinton | PCP | | + +------+ + Encounter Details +--------+ + + + + | Date | Type | Department | Care Team | Description | +--------+ + + + + | 12/02/ | Pharmacy | Specialty Pharmacy | | | | 2015 | Visit | Services [address] | | | | | | [address] | | | | | | [place], [place] | | | | | | [address] | | | | | | [phone] | | | +--------+ + + + [...] Rd | | | | | | [place], [place] | | | | | | [address] | | | | | | [phone] | | | | | | | | +--------+---------+ + + + documented as of this encounter Visit Diagnoses Not on filedocumented in this encounter"
--- OUTSIDE RECORDS SUMMARY | ~2019-05-17 | XMS | Encounter Summary ---
Demographics + + + | Address | [address] | | | [place] [address] | + + + | Home Phone [...] Team Providers + +------+ + | Care Scaleman Name | Role | Phone | + [...] | | | | | remission | [address] | [place] | | | | | | Phone: | [facility] | | | | | Procedures | [phone] | [place], [place] | | | | | Post BMT | Fax: | [address] | | | | | Auth to | [phone] | Phone: | | | | | included | | [phone] | | | | | facility, | | Fax: | | | | | diagnostics, | | [phone] | | | | | office | [...] | | | | | | [address] [place] | | | | | | [facility] [place], | | | | | | [place] [address] | | | | | | [phone] | | | +--------+ + + + [...] PM PDTVaccines given by protocol by Mini Dilsa CMA. Please see MAR for details. documented [...] Visit | Malignancy | [address] [facility] | | | | | | [address] | | | | | | [place], [place] | | | | | | [address] | | | | | | [phone] | | | | | | | [...] + + + + + | [facility] | [address] | [place] [address] | | | INDRA SHARIF | [address] [...]
--- OUTSIDE RECORDS SUMMARY | ~2019-05-17 | XMS | Encounter Summary ---
Demographics + + + | Address | [address] | | | [place] [address] | + + + | Home Phone [...] Team Providers + +------+ + | Care Acid Tender Name | Role | Phone | + +------+ + | Pending Pcp Addition | PCP | Unavailable | + +------+ + Reason for Visit + + + | Reason | Comments | + + + | Ambulatory | | | Chemotherapy | | + + + | PICC line | Dressing change | + + + Chemotherapy (Routine) +--------+--------+ [...] [address] | | | | | [place] | | [address] | | | | | [address] | | [address] [place], | | | | | INJECTION, 1 | | [place] | | | | | [place] | | [address] | | | | | [facility] | | Phone: | | | | | INFSN,1 HR | | [phone] | | | | | [place] [facility] | | Fax: | | | | | INFSN,ADDL | | [phone] | | | | | [place] | | | +--------+--------+ + + + + Encounter Details +--------+ + + + + | Date | Type | Department | Care Team | Description | +--------+ + + + + | 07/26/ | Clinical | [facility] | | Ambulatory | | 2016 | Support | Hematologic | | Chemotherapy; PICC | | | Staff | [facility] | | line (Dressing | | | | [address] | | change) | | | | [place] Mailcode: | | | | | | [address] | | | | | | [place], | | | | | | [place] [address] | | | | | | [phone] | | | +--------+ + + + [...] + + + | Blood Pressure | 122/79 | 07/26/2015 11:08 AM | | | | | PST | | + + + + + | Pulse | 84 | 07/26/2015 11:08 AM | | | | | PST | | + + + + + | Temperature | 36.7 C (98.1 F) | 07/26/2015 11:08 AM | | | | | PST | | + + + + + | Respiratory Rate | 16 | 07/26/2015 11:08 AM | | | | | PST | | + + + + + | Oxygen Saturation | 99% | 07/26/2015 11:08 AM | | | | | PST | | + + + + + | Inhaled Oxygen | - | - | | | Concentration | | | | + + + + + | Weight | 81.2 kg (179 lb 0.2 | 07/26/2015 11:08 AM | | | | oz) | PST | | + + + + + | Height | - | - | | + + + + + | Body Mass Index | 22.68 | 07/15/2015 1:57 PM | | | | | PST | | + + + + + documented in this encounter Progress Notes Kassandra Levin RN - 07/26/2015 12:11 PM PSTFormatting of this note might be different from e original. Chemotherapy Nurse Note Name: Khurram Kelly Date: 07/26/2015 Physician: Dr. Garcia Allergies: Khurram is allergic to chlorhexidine towelette. Pre-Chemotherapy Pain Score: Patient reports a pain level of 0 today. Nursing Assessment: Fever: no; Diarrhea: no; SOB / Cough: no; Nausea / Vomiting: no; Anemia / Fatigue: yes - emelina rios per pt; Constipation: no; Edema: no; S/S Bleeding: no; Mucositis: no; Urinary: no; Ne uropathy: no; Rash: no. Pt reports being more emotional, tearful prior to clinic. Validated chemotherapy can affect pt hormones, causing patients to be more emotional. Patient kaela edward that after each chemotherapy he feels more emotional. Asked him if he wants to speak wi social and political studies professor. He stated he discloses everything to his spouse, she is his preferred per son to speak with. Labs: Lab Results Component Value Date WBC 0.97* 07/25/2015 HB 7.3* 07/25/2015 HCT 20.4* 07/25/2015 PLT 13* 07/25/2015 BUN 9 07/25/2015 CR 0.8 07/25/2015 Narrative: Pt here for Day 8, Cycle 1 Decitabine infusion and PICC line dressing change. Pt has labs drawn yesterday and received 1 unit PRBC. Per infusion plan orders, no labs drawn today, will be drawn tomorrow. PICC line flushes without difficulty. Positive blood return noted. Pre-procedure pain level: 0 Power PICC intact to left upper extremity without erythema or induration. Dressing removed , skin intact. No s/s exit site infection. 2.5 cm line exposed. Using a PICC Dressing Wasserman ge kit and sterile technique, site cleansed with Chloraprep. Skin prep applied prior to keely ssing application. Biopatch applied with SorbaView dressing. Positive pressure valves wasserman ged to each port. All lumens pulse flushed with 20 ml NS and cap changed. Patient tolerated procedure without difficulty. Post-procedure pain level: 0 Chemotherapy was checked by 2 RNs. Decitabine was infused per chemotherapy protocol and co mpleted without adverse event. Positive blood return note again post infusion. PICC line f lushed with 20 ml NS. Pt discharged ambulatory from clinic to return tomorrow. Refer to MAR and flowsheet for treatment details. Kassandra Levin documented in this encoun ter Plan of [...] 2019 | Visit | Malignancy | [address] | | | | | | [address] | | | | | | [place], [place] | | | | | | [address] | | | | | | [phone] | | | | | | | [...] ondansetron (ZOFRAN) tablet 8 | Given | 07/26/19 | 8 mg | | | | mg 8 mg, oral, ONCE, 1 dose, Mon | | 16 11:16 | | | | | 07/26/15 at 1115 | | AM PST | | | | + +--------+ +------+------+------+ +---+---+ | | | +---+---+ documented in this encounter"
--- OUTSIDE RECORDS SUMMARY | ~2019-05-17 | XMS | Encounter Summary ---
Demographics + + + | Address | [address] | | | [place] [address] | + + + | Home Phone [...] Providers + +------+ + | Care Air Drier Machine Operator Name | Role | Phone [...] | | | | | | [place], | | | | | | [place] [address] | | | | | | [phone] | | | +--------+ + + + [...] Rd | | | | | | [place], [place] | | | | | | [address] | | | | | | [phone] | | | | | | | | +--------+---------+ + + + documented as of this encounter Visit Diagnoses Not on filedocumented in this encounter"
--- OUTSIDE RECORDS SUMMARY | ~2019-05-17 | XMS | Encounter Summary ---
Demographics + + + | Address | [address] | | | [place] [address] | + + + | Home Phone [...] Team Providers + +------+ + | Care Mantel Craftsman Name | Role | Phone | + +------+ + | Zayda Hinton | PCP | | + +------+ + Encounter Details +--------+ + + + + | Date | Type | Department | Care Team | Description | +--------+ + + + + | 11/21/ | Pharmacy | Specialty Pharmacy | | | | 2015 | Visit | Services [address] | | | | | | [address] | | | | | | [place], [place] | | | | | | [address] | | | | | | [phone] | | | +--------+ + + + [...] Rd | | | | | | [place], [place] | | | | | | [address] | | | | | | [phone] | | | | | | | | +--------+---------+ + + + documented as of this encounter Visit Diagnoses Not on filedocumented in this encounter"
--- OUTSIDE RECORDS SUMMARY | ~2019-05-17 | XMS | Encounter Summary ---
Demographics + + + | Address | [address] | | | [place] [address] | + + + | Home Phone [...] Providers + +------+ + | Care Electronic Resources Librarian Name | Role | Phone | + +------+ + | Pending Pcp Addition | PCP | Unavailable | + +------+ + Reason for Visit + + + | Reason | Comments | + + + | Medication | | | Adjustment | | + + + Encounter Details +--------+ + + + + | Date | Type | Department | Care Team | Description | +--------+ + + + + | 12/02/ | Telephone | Center for | Yari Garcia MD | Medication | | 2016 | | Hematologic | [address] | Adjustment | | | | [facility] | [address] | | | | | [address] | [place], [place] | | | | | [place] [place] Mailcode: | [address] | | | | | [address] | [phone] | | | | | [place], | | | | | | [place] [address] | | | | | | [phone] | | | +--------+ + + + [...] Rd | | | | | | [place] | | | | | | [address] | | | | | | [phone] | | | | | | | | +--------+---------+ + + + documented as of this encounter Visit Diagnoses Not on filedocumented in this encounter"
--- OUTSIDE RECORDS SUMMARY | ~2019-05-17 | XMS | Encounter Summary ---
Demographics + + + | Address | [address] | | | [place] [address] | + + + | Home Phone [...] Team Providers + +------+ + | Care Sternman Name | Role | Phone | + [...] Description | +--------+--------+ + + + | 04/05/ | Refill | Center for | Yari Garcia MD | Refill Request | | 2017 | | Hematologic | [address] [facility] | | | | | Malignancies at | [address] | | | | | [place] | [place], [place] | | | | | [address] | [address] | | | | | [address] Mailcode: | [phone] | | | | | [address] | | | | | | [place], | | | | | | [place] [address] | | | | | | [phone] | | | +--------+--------+ + + + [...] Rd | | | | | | [place] | | | | | | [address] | | | | | | [phone] | | | | | | | | +--------+---------+ + + + documented as of this encounter Visit Diagnoses Not on filedocumented in this encounter"
--- OUTSIDE RECORDS SUMMARY | ~2019-05-17 | XMS | Encounter Summary ---
Demographics + + + | Address | [address] | | | [place] [address] | + + + | Home Phone [...] Team Providers + +------+ + | Care Golf Tournament Consultant Name | Role | Phone | [...] | | | | | | | [address] | | | | | | | Phone: | | | | | | | [phone] | | | | | | | Fax: | | | | | | | [phone] | +--------+--------+ + + + + Encounter [...] HOSPITAL | | | | | | [address] | | | | | | [place] Mailcode: | | | | | | [address] [place] | | | | | | [place], | | | | | | [place] [address] | | | | | | [phone] | | | +--------+ + + + [...] Rd | | | | | | [place], [place] | | | | | | [address] | | | | | | [phone] | | | | | | | [...] | | PDT | transplant ([facility]) | results section. 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[facility])- primary [...] | | PDT | transplant ([facility]) | results section. 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[facility])- primary | | | | | | induction failure | | + +--------+ + + + | IGG, SERUM | Routin | 11/15/2015 | S/P allogeneic | Results for this | | | e | 8:05 AM | bone marrow | procedure are in the | | | | PDT | transplant ([facility]) | results section. 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[facility])- primary [...] [facility] | [address] | [place], [place] | | | RUTHIE CARTER OF CARE | [facility] | [address] | | | TESTS | | | [...] [place] | [address] | [place], [place] | | | EMMA POINT OF CARE | [address] | [address] | | | TESTS | | | [...] [facility] | [address] | [place] [address] | | | SERVICES, CORE | PARK [...] + | [facility] - AIRPORT - | [address] | [place] [address] | | | [place] | | | | + + + [...] is just barely above background consistent | [facility] | | with an extremely low level [...] and its performance characteristics determined by the [facility] | | | Diagnostic [facility]. It has not been | | | cleared or approved by the Food and Drug Administration. FDA approval | | | is not required for clinical use of this test, and therefore | | | validation was done as required under the requirements of the Clinical | | | Laboratory Improvement Act of 1988. The [facility] | | | [facility] is a fully licensed and/or | | | accredited clinical laboratory under CLIA, [place], and the State of | | | [place]. | | + + + + + + + + | Performing | Address | City/State/Zipcode | Phone Number | | Organization | | | | + + + + + | [facility] | [address] | [place] [address] | | | DIAGNOSTIC | [address] [...] | + + + + + | [facility] | [address] | [place] [address] | | | SERVICES, SPECIAL | PARK [...]
--- OUTSIDE RECORDS SUMMARY | ~2019-05-17 | XMS | Encounter Summary ---
Demographics + + + | Address | [address] | | | [place] [address] | + + + | Home Phone [...] Team Providers + +------+ + | Care Curtains And Draperies Salesperson Name | Role | Phone | + +------+ + | No Pcp Per Patient | PCP | Unavailable | + +------+ + Reason for Visit + + + | Reason | Comments | + + + | Pre-operative | | | evaluation | | + + + Encounter Details +--------+---------+ + + + | Date | Type | Department | Care Team | Description | +--------+---------+ + + + | 09/06/ | Office | Preoperative | Isa Salter, | Preop examination | | 2017 | Visit | Medicine Clinic at | MD | (Primary Dx); | | | | [facility] 4th Floor Day | | Avascular necrosis | | | | Stay [address] | | of hip, unspecified | | | | [address] | | laterality ([facility]); | | | | Mailcode: [id number] | | S/P allogeneic bone | | | | [facility] | | marrow transplant | | | | [address] [place], [place] | | ([facility]); GVHD (graft | | | | [phone] | | versus host disease) | | | | [phone] | | ([facility]); Abnormal | | | | | | LFTs (liver function | | | | | | tests) | +--------+---------+ + + + Anesthesia Record + + + + + | Procedure Name | Responsible | Anesthesia Start | Anesthesia Stop Time | | | Anesthesiologist | Time | | + + + + + | LEFT TOTAL HIP | Mustapha Crowell MD | 09/07/16721 | 09/07/16919 | [...] Lilly | 09/08/16 1230 by | | ramanal | Lidocaine; Positive; 09/08/16; | ZAFAR De Paz | David Tan RN | | IV | 1230 | | | +--------+ + + + | Urethr | 09/07/16; 0754; Alicia Jacinto; | 09/07/16 0754 by | 09/07/16 1500 by | | al | Michael; 16 Fr.; 10 mL; 09/07/16; | Nicole Pratt RN | David Tan RN | | Cathet | 1500 | | | | er | | | | +--------+ + + + | Periph | 09/07/16; 0757; Clinic Staff; | 09/07/16 0757 by | 09/08/16 1230 by | | eral | Right; Dorsal; Wrist; 18 g; No; | Constantine Morel Md | David Tan RN | | [...] + + + | Blood Pressure | 105/80 | 09/06/2016 9:57 AM | | | | | PST | | + + + + + | Pulse | 90 | 09/06/2016 9:57 AM | | | | | PST | | + + + + + | Temperature | 36.6 C (97.9 F) | 09/06/2016 9:57 AM | | | | | PST | | + + + + + | Respiratory Rate | 14 | 09/06/2016 9:57 AM | | | | | PST | | + + + + + | Oxygen Saturation | 97% | 09/06/2016 9:57 AM | | | | | PST | | + + + + + | Inhaled Oxygen | - | - | | | Concentration | | | | + + + + + | Weight | 83 kg (183 lb) | 09/06/2016 9:57 AM | neck 39 cm | | | | PST | | + + + + + | Height | 190.5 cm (6' 3") | 09/06/2016 9:57 AM | | | | | PST | | + + + + + | Body Mass Index | 22.87 | 09/06/2016 9:57 AM | | | | | PST | | + + + + + documented in this encounter Patient Instructions Patient Instructions Isa Salter MD - 09/06/2016 10:00 AM PST PREOPERATIVE INSTRUCTIONS Empty stomach before surgery On the day BEFORE your surgery, drink plenty of fluids and stay well hydrated NOTHING to eat or drink after midnight the night before surgery. This includes water, coffee, candy, mints, gum. Medications Instructions On the evening before your surgery, take ALL your usual evening medications TAKE the following medications with a sip of water on the morning of surgery: All your usual morning meds Do not take any Aspirin, vitamin E or non-steroidal anti-inflammatory (NSAIDs i.e. Advil , Aleve, Ibuprofen) or herbal supplements 7 days prior to your surgery. These drugs may inte rfere with normal blood clotting and may cause excessive bleeding and bruising during or aft er the surgery. If you need a pain medication for general purposes, use Tylenol as directed. OK to take it even on the morning of surgery, if needed. If you are in doubt about any medications that you are taking, please contact our office . Special Reminders for Orthopedic Patients Having Joint Replacement Surgery Nasal swab to screen for staph bacteria. If the swab obtained during your visit shows e vidence of staph bacteria, you will be contacted by us with additional instructions on how t o prepare for surgery. If the test is negative, then no call! CHG wipe packet and instructions on proper skin cleaning Please be sure to follow the se newton instructions regarding proper skin preparation before surgery. [...] late for your check in for surgery. Please remember to brush your teeth the [...] or walk. Surgery check-in location: Admitting - [facility], ninth floor lobby Surgery Check in Time: The Preoperative Medicine Clinic is not in the position to give you accurate information regarding surgical check in time. We refer you back to your surgical office regarding this important information. Going Home Your surgical team will decide when you are medically ready to go home. If you stayed in the hospital after surgery, please arrange for your ride to come for yo u around 9AM on the day your doctor says you can go home. If you have questions or concerns after you go home, call your doctor s office. If it is after office hours, call the [facility] forwarder operator at [phone] and ask them to page him or h er. documented in this encounter Progress Notes Charla Gomes MA - 09/06/2016 10:06 AM PST Venipuncture performed in clinic, blood sample obtained from Left antecubital site Two patient identifiers performed. Nasal swab specimen obtained from both the left and righ t nares per nasal swab collection instructions. Swab placed in culture tube; tube labeled an d sent to the lab. aIsa tena MD - 09/06/2016 10:00 AM PST PREOPERATIVE CONSULT NOTE Author: Isa Salter MD Referring Physician: Dr. Jeffers Primary Care Provider: No Pcp Per PATIENT Reason for Consult: Preoperative evaluation and risk assessment Proposed Procedure/Date: L CHRISTIE 09/07/2016 HISTORY OF PRESENT ILLNESS: Khurram Kelly is a 26 y.o. male here for preoperat mickey evaluation of medical problems in anticipation of the above procedure. 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 He's no naga shavonne on prednisone. He takes oxycodone for pain mgmt. 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 Perioperative cardiac risks: None Functional Capacity: Moderate (4-10 mets) Prior complications of anesthesia: pt thinks he's pretty resistant to "going to sleep" and it requires more medication to be effective ROS: Pulmonary: no cough no sputum no URI no shortness of breath Pt. Has no asthma no COPD No dx of sleep apnea Cardiovascular: Functional Capacity: Moderate - cyanosis, PND, palpitations, chest pressure and syncope no CAD no CHF no hypertension no valvular problems/murmurs no pacemaker GI/Hepatic: GVHD in gi tract no GI Bleed GERD Control: Well controlled No liver disease no hepatitis no OTHER GI : no renal failure no dialysis Endo: no Diabetes: Neurological: no seizures no HX CORTICOSTEROID psychiatric problem anxiety no dementia pain Chronic pain > 6 months Current Pain Level: Current pain level: 7 MS: no arthritis Heme/Onc: Pt. has: no active bleeding no Bleeding diathesis / thrombotic bleeding Previous Transfusions: no transfusion hx Hx: no other heme, Malignancy: cancer (hx of AMl; s/p BMTx; immunocompromised), Location: Metastasis: Skin: No open wounds or sores No hx MRSA/VRE/Active skin infection Current medications reviewed / updated Current Outpatient Prescriptions Medication Sig acyclovir 800 [...] for moderate pain or severe pain. tacrolimus 1 mg oral capsule Take 1 capsule by mouth two times daily. Indications: prev ention of GvHD triamcinolone acetonide 0.1 % topical ointment Apply thin film to affected areas twice daily. trimethoprim-sulfamethoxazole 160-800 mg oral tablet Take 1 tablet by mouth twice daily (every Sunday and ). No current facility-administered medications for this visit. Allergies reviewed / updated No Known Allergies [...] Social history reviewed / updated Social History Substance Use Topics Smoking status: Former Smoker Packs/day: 0.50 Years: 5.00 Quit date: 05/20/2015 Smokeless tobacco: Former User Comment: used 1 year Alcohol use 1.8 oz/week 3 Standard drinks or equivalent per week PHYSICAL EXAM: Last Vitals: BP 105/80 | Pulse 90 | Temp (Src) 36.6 C (97.9 F) (Forehead) | RR 14 | Ht 1.905 m (6' 3") | Wt 83 kg (183 lb) | SpO2 97% | BMI 22.87 kg/(m^2) Body mass index is 22.87 kg/(m^2). General: Patients general appearance: Healthy, Alert, No distress, Cooperative and Age appr opriate Head & Neck/Airway: NC/AT; PERRL; EOMI; nl appearing ears and nose. Neck ROM: full TM Distance:Normal Dentition: dentition is normal Elias: No Mallampati: III Mouth Opening: > = 3 cm C-Spine: normal Neck Anatomy: Normal Jaw Protrusion: Normal, lower incisors can pro trude past upper incisors Lung Exam: No respiratory distress. Normal breathing pattern. breath sounds normal Cardiac: No murmurs, gallops or rubs. Rhythm: regular Rate: normal Abdominal: General Findings: no abdominal tenderness and Nondistended Bowel Sounds: bowel s ounds are normal Musculoskeletal: Findings: tone normal Neuro/Psych: No focal neuro deficits; Alert and appropriate; nl affect. alert Findings: Welding Systems And Equipment Repairer nial nerves 2-12 intact, Motor 5/5 strength globally with normal tone, Soft & sharp sensatio n normal, No tremor, Alert, oriented to person, place, time and Normal affect Integument: No open rashes or lesions noted. - lesion, rash and open wounds Color: pink Texture: Skin texture - normal Turgor: turgor normal Implants: None, LABS & DATA REVIEWED/ORDERED Lab Results Component Value Date WBC 7.43 08/31/2016 HB 14.1 08/31/2016 HCT 42.1 08/31/2016 PLT 240 08/31/2016 MCV 94.4 08/31/2016 RDW 44.3 08/31/2016 Lab Results Component Value Date NA 137 08/31/2016 K 4.2 08/31/2016 CL 101 08/31/2016 BICARB 27 08/31/2016 BUN 9 08/31/2016 CR 1.0 08/31/2016 GLU 111 08/31/2016 CA 9.2 08/31/2016 AST 106 08/31/2016 ALT 135 08/31/2016 AP 183 08/31/2016 TBILI 0.5 08/31/2016 TP 6.7 08/31/2016 ALB 3.6 08/31/2016 Lab Results Component Value Date ABO A 09/07/2015 RH Positive 09/07/2015 No results found for: A1C EKG: Not needed Perioperative risk calculators 2014 ACC/AHA Perioperative Cardiac Risk Stratification (assumes non-emergent, non-cardiac p rocedure) Are active cardiac conditions present? No Calculate the combined surgical and patient-specific risk: using the [place]anco perioperative ca rdiac risk calculator, the risk of major adverse cardiac event (MACE) is: less than 1%. No further risk stratification for coronary disease is indicated. Estimated ASA class 3 ASSESSMENT and RECOMMENDATIONS: Perioperative risk assessment: Khurram Kelly is a 26 y.o. male with diagn osis of AVN of the hip, scheduled for Left CHRISTIE. Based on the clinical information obtained and reviewed during this visit, the overall assessment is that the patient is having electiv e major surgery with identified risk factors. The patient is stable / optimized for surgery . Additional testing/optimization is not needed. Medication management recommendations: The patient was advised to continue all usual med ications except as noted in Patient Instructions (After Visit Summary given to pt) Pre-procedure antibiotic recommendation: Per standard protocol. 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 Abnormal LFTs -- noted on most recent labs; no symptoms. Needs close monitoring. HTN -- pt on amlodipine; BP is normal. Thank you for the opportunity to contribute to this patient's care. Isa Salter MD [facility] AT [facility] 4TH FLOOR DAY STAY [address] [place] [address] I spent time (35 minutes, >50% of the visit) counseling the pt regarding perioperative risk (cardiac/bleeding/ DVT/ respiratory failure/ infection, etc) and methods to mitigate risk. I advised the patient regarding NPO requirements, hydration before surgery, showering, gen eral body hygiene. All pre-procedure instructions given to the patient (after-visit summary ). All of patient's questions were addressed. The patient verbalized understanding of the instructions given. documented in this encounter Plan of Treatment [...] [address] | | | | | | [place], [place] | | | | | | [address] | | | | | | [phone] | | | | | | | | +--------+---------+ + + + + + +--------+ + + | Name | Type | Priori | Associated Diagnoses | Order Schedule | | | | ty | | | + + +--------+ + + | COMMUNICATION TO [facility] | Procedures | Routin | Preop examination | Ordered: 09/06/2016 | | LAB DRAW | | e | | | + + +--------+ + + documented as of this encounter Procedures + +--------+ + + + | Procedure Name | Priori | Date/Time | Associated Diagnosis | Comments | | | ty | | | | + +--------+ + + + | NM COLLECTION VENOUS | Routin | 09/06/2016 | Preop examination | | | BLOOD,VENIPUNCTURE | e | 10:06 AM | | | | | | PST | | | + +--------+ + + + | STAPH SCREEN, MRSA | Routin | 09/06/2016 | Preop examination | Results for this | | BY PCR, NASAL ONLY | e | 10:01 AM | | procedure are in the | | | | PST | | results section. | + +--------+ + + + | ANTIBODY SCREEN | Routin | 09/06/2016 | Preop examination | Results for this | | | e | 10:01 AM | | procedure are in the | | | | PST | | results section. | + +--------+ + + + | TYPE AND SCREEN | Routin | 09/06/2016 | Preop examination | Results for this | | | e | 10:01 AM | | procedure are in the | | | | PST | | results section. | + +--------+ + + + | ABO & RH TYPE | Routin | 09/06/2016 | Preop examination | Results for this | | | e | 10:01 AM | | procedure are in the | | | | PST | | results section. | + +--------+ + + + documented in this encounter Results ANTIBODY SCREEN (09/06/2016 10:01 AM PST) + + + + + [...] [facility] | [address] | [place] [address] | | | SERVICES, | [address] | | | | TRANSFUSION MEDICINE | | | | + + + + + ABO & RH TYPE (09/06/2016 10:01 AM PST) + + + + + [...] | + + + + + | [facility] | [address] | [place] [address] | | | SERVICES, | [address] | | | | TRANSFUSION MEDICINE | | | | + + + + + STAPH SCREEN, MRSA BY PCR, NASAL ONLY (09/06/2016 10:01 AM PST) + + + + + [...] [facility] | [address] | [place] [address] | | | SERVICES, CORE | [address] | | | + + + + + documented in this encounter Visit Diagnoses + + | Diagnosis | + + | Preop examination - Primary Preoperative examination, unspecified | + + | Avascular necrosis of hip, unspecified laterality (HCC) | + + | 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HCC) Bone marrow replaced by transplant | + + | GVHD (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 host disease) (HCC) Complications of transplanted organ, | | unspecified site | + + | Abnormal LFTs (liver function tests) Other abnormal blood chemistry | + + documented in this encounter
--- OUTSIDE RECORDS SUMMARY | ~2019-05-17 | XMS | Encounter Summary ---
Demographics + + + | Address | [address] | | | [place] [address] | + + + | Home Phone [...] Team Providers + +------+ + | Care Night Guard Name | Role | Phone | + +------+ + | Zayda Hinton | PCP | | + +------+ + Encounter Details +--------+ + + + + | Date | Type | Department | Care Team | Description | +--------+ + + + + | 10/12/ | Inside | [facility] | Aspen Walters FNP | | | 2017 | Referral | [facility] [address] | [address] [facility] | | | | Order | Deshaun Jewell Mailcode: | [address] | | | | | [facility] | [place], [place] | | | | | [facility] He[facility], | [address] | | | | | [address] | [phone] | | | | | [place], [place] | | | | | | [address] | | | | | | [phone] | | | +--------+ + + + [...] Rd | | | | | | [place], [place] | | | | | | [address] | | | | | | [phone] | | | | | | | | +--------+---------+ + + + documented as of this encounter Results FLEXIBLE SIGMOIDOSCOPY (10/17/2016 3:55 PM PDT) + + | Specimen | + + | | + + + + ---+ | Narrative | Performed At | + + ---+ | MRN: | [facility] | | [id number] Date: 10/17/2016Patient Name: Khurram | ENDOSCOPY | | LeticiaOrder #: [id number] of : 1990CSN: | | | [id number] Type: AmbulatoryRoom: [facility] 3Procedure: | | | Flexible SigmoidoscopyIndications: Suspected | | | xzhfx-ihphvi-ndbh diseaseProviders: CHAY SALVADOR MD | | | (Doctor), MILDRED BELCHER, RN (Nurse), | | | SHU HARRIS, Specifications Checker (Specifications Checker)Referring MD: ASPEN | | | WALTERS, FNPRequesting [...] | | | The Olympus [id number] Endoscope #[id number] | | | was introduced through the [...] ---+ | MRN: | [facility] | | [id number] Date: 10/17/2016Patient Name: Khurram | ENDOSCOPY | | BrandyquesOrder #: [id number] of : 1990CSN: | | | [id number] Type: AmbulatoryRoom: [facility] 3Procedure: | | | Upper GI endoscopyIndications: Suspected seluf-sccqdr-ypam | | | disease, Nausea with vomitingProviders: CHAY | | | MD MODESTO (Doctor), MILDRED BELCHER RN (Nurse), | | | SHU HARRIS, Specifications Checker (Specifications Checker)Referring MD: | | | ASPEN WALTERS FNPRequesting [...] The | | | Olympus [id number] Endoscope #[id number] was introduced | | | through the [...]
--- OUTSIDE RECORDS SUMMARY | ~2019-05-17 | XMS | Encounter Summary ---
Demographics + + + | Address | [address] | | | [place] [address] | + + + | Home Phone [...] Team Providers + +------+ + | Care Lap Winder Name | Role | Phone | + +------+ + | Pending Pcp Addition | PCP | Unavailable | + +------+ + Reason for Visit + + + | Reason | Comments | + + + | Lab Draw | Trifusion | + + + | Dressing change | Trifusion | + + + Benefits [...] | | | | | | | [address] | | | | | | | Phone: | | | | | | | [phone] | | | | | | | Fax: | | | | | | | [phone] | +--------+--------+ + + + + Encounter Details +--------+ + + + + | Date | Type | Department | Care Team | Description | +--------+ + + + + | 01/12/ | Clinical | [facility] | | Lab Draw | | 2016 | Support | Hematologic | | (Trifusion); | | | Staff | [facility]ign[facility] at [facility] | | Dressing change | | | | [address] | | (Trifusion) | | | | Debi Burger Mailcode: | | | | | | [id number] | | | | | | [place], | | | | | | [place] [address] | | | | | | [phone] | | | +--------+ + + + [...] documented as of this encounter Progress Notes Alysha Arias RN - 01/13/2016 10:22 AM PDTPatient ambulated independently into clinic with . Hx of AML. In clinic for lab draw with possible infusions or transfusion, aniya ng change and visit with Aspen CARDENAS. Assessment Pain: Denies Fever or chills: Denies Fatigue or sleep disturbance: Denies Dizziness: Denies Mucositis: Denies Dyspnea, cough: Had a cold a week and a half ago, most symptoms have resolved Signs of bleeding: Denies Nausea, vomiting or loss of appetite: Occasional nausea, for which PRN meds help Fluid intake: States adequate fluid intake of 2L/day Diarrhea or constipation: Denies VAD Lab Draw: Trifusion accessed per protocol. Good blood return noted. Appropriate waste discarded. L abs drawn and sent. Trifusion pulse flushed with 20 mL NS and 5 mL of 10 units/mL Heparin. Patient scheduled for provider visit today with Aspen CARDENAS. Trifusion intact to left anterior chest wall [...] Heparin. Patient tolerated procedure witho ut difficulty. Per infusion plan: no transfusions or infusions required today. Patient left clinic after ESTHELA visit. Did not observe patient leaving. documented in this encounter Plan of Treatment [...] Rd | | | | | | [place], [place] | | | | | | [address] | | | | | | [phone] | | | | | | | | +--------+---------+ + + + documented as of this encounter Procedures + +--------+ + + + | Procedure Name | Priori | Date/Time | Associated Diagnosis | Comments | | | ty | | | | + +--------+ + + + | BMP + MAG, POC CHM | Routin | 01/13/2016 | S/P allogeneic | Results for this | | | e | 9:47 AM | bone marrow | procedure are in the | | | | PDT | transplant ([facility]) | results section. 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[facility])- primary | | | | | | induction failure | | + +--------+ + + + | CBC+DIFF,POC | Routin | 01/13/2016 | S/P allogeneic | Results for this | | | e | 9:42 AM | bone marrow | procedure are in the | | | | PDT | transplant (HCC) | results section. 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[facility])- primary | | | | | | induction failure | | + +--------+ + + + | CMV PCR | Routin | 01/13/2016 | S/P allogeneic | Results for this | | QUANTITATION, PLASMA | e | 9:32 AM | bone marrow | procedure are [...] + | LIVER SET | Urgent | 01/13/2016 | S/P allogeneic | Results for this | | (AST,ALT,BILI | | 9:32 AM | bone marrow | procedure are [...] + | TREATMENT PARAMETERS | Routin | 01/13/2016 | 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 | 9:22 AM | leukemia (AML), 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 | | | | | | induction failure | | + +--------+ + + + | TREATMENT PARAMETERS | Routin | 01/13/2016 | 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 | 9:22 AM | leukemia (AML), 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 | | | | | | induction failure | | + +--------+ + + + | TREATMENT PARAMETERS | Routin | 01/13/2016 | 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 | 9:22 AM | leukemia (AML), 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 | | | | | | induction failure | | + +--------+ + + + | TREATMENT PARAMETERS | Routin | 01/13/2016 | 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 | 9:22 AM | leukemia (AML), 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 | | | | | | induction failure | | + +--------+ + + + | TREATMENT PARAMETERS | Routin | 01/13/2016 | 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 | 9:22 AM | leukemia (AML), M4 | | | | | PDT | ([facility])- primary | | | | | | induction failure | | + +--------+ + + + | NURSING | Routin | 01/13/2016 | Acute myeloid | | | COMMUNICATION #3 - | e | 9:22 AM | leukemia (AML), M4 | | | [facility] | | PDT | ([facility])- primary | | | | | | induction failure | | + +--------+ + + + | NURSING | Routin | 01/13/2016 | Acute myeloid | | | COMMUNICATION #2 - | e | 9:22 AM | leukemia (AML), M4 | | | [facility] | | PDT | ([facility])- primary | | | | | | induction failure | | + +--------+ + + + | NURSING | Routin | 01/13/2016 | Acute myeloid | | | COMMUNICATION #1 - | e | 9:22 AM | leukemia (AML), M4 | | | [facility] | | PDT | ([facility])- primary | | | | | | induction failure | | + +--------+ + + + | TREATMENT PARAMETERS | Routin | 01/13/2016 | Acute myeloid | | | #1 - [facility]ON | e | 9:22 AM | leukemia (AML), 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 | | | | | | induction failure | | + +--------+ + + + | TREATMENT PARAMETERS | Routin | 01/13/2016 | Acute myeloid | | | #1 - BEACON | e | 9:22 AM | leukemia (AML), 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 | | | | | | induction failure | | + +--------+ + + + documented in this encounter Results JEANETH + PHIL ROBERTSON (01/13/2016 9:47 AM PDT) + +---------+ + + + [...] + + + | LDH, POC | 300 (H) | 0 - 206 U/L | [...] [facility] | [address] | [place], [place] | | | RUTHIE CARTER OF CARE | [facility] | [address] | | | TESTS | | | | + + + + + CBC+DIFF,POC (01/13/2016 9:42 AM PDT) + + + + + [...] | | | | | 10*6/uL | [facility] | | | | | | [facility] POINT | | | | | | OF CARE | | | | | | TESTS | | + + + + + + | HGB POC | 12.9 (L) | 13.5 - 17.5 | [facility] [...] + + + | MCV POC | 103.9 (H) | 80.0 - 96.0 fL | [...] + + + | MCHC POC | 34.5 | 33.0 - 35.5 | [facility] - | | | | | g/dL | [facility] | | | | | | [facility] POINT | | | | | | OF CARE | | | | | | TESTS | | + + + + + + | RDW SD, POC | 54.1 (H) | 35.1 - 46.3 fL | [facility] - | | | | | | [facility] | | | | | | [facility], POINT | | | | | | OF CARE | | | | | | TESTS | | + + + + + + | PLT POC | 63 (L) | 150 - 400 | [facility] [...] + + + + | NEUTROPHIL% | 62.4 | 50.0 - 70.0 % | [facility] - | | | POC | | | [facility] | | | | | | [facility] POINT | | | | | | OF CARE | | | | | | TESTS | | + + + + + + | LYMPH% POC | 28.1 | 18 - 42 % | [facility] [...] + + | YESSICA SORTO | [address] | [place], [place] | | | [facility] POINT OF CARE | [address] | [address] | | | TESTS | | | | + + + + + LIVER SET (AST,ALT,BILI TOTAL,BILI DIRECT,ALK PHOS,ALB,PROT TOTAL) (01/13/2016 9:32 AM PDT ) + +---------+ + + [...] + + + | ALT (SGPT) | 154 (H) | <=60 U/L | [facility] | [...] [facility] | [address] | [place] [address] | | | SERVICES, CORE | [address] | | | + + + + + CMV PCR QUANTITATION, PLASMA (01/13/2016 9:32 AM PDT) + + + + + [...] 2 fold may not reflect true | [facility] | | biological changes and must be [...] | | | characteristics determined by the [facility] | | | [facility]. It has not been cleared or approved by | | | the Food and Drug Administration. FDA approval is not required for | | | clinical use of this test, and therefore validation was done as | | | required under the requirements of the Clinical Laboratory Improvement | | | Act of 1988. The [facility] | | | Diagnostic Center is a fully licensed and/or accredited clinical | | | laboratory under CLIA, CAP, and the [facility]. | | + + + + + + + + | Performing | Address | City/State/Zipcode | Phone Number | | Organization | | | | + + + + + | [facility] | [address] | [place] [address] | | | DIAGNOSTIC | [address] [...]
--- OUTSIDE RECORDS SUMMARY | ~2019-05-17 | XMS | Encounter Summary ---
Demographics + + + | Address | [address] | | | [place] [address] | + + + | Home Phone [...] Team Providers + +------+ + | Care Blending Tank Tender Name | Role | Phone [...] | 2018 | | Hematologic | [address] [facility] | frequency on | | | | Malignancies at | [address] | Alprazolam) | | | | [facility] | [place], [place] | | | | | [address] [facility] [address] | [address] | | | | | Debi Mailcode: | [phone] | | | | | [id number] [place] | | | | | | [facility], | | | | | | [place] [address] | | | | | | [phone] | | | +--------+ + + + [...] Rd | | | | | | [place], [place] | | | | | | [address] | | | | | | [phone] | | | | | | | | +--------+---------+ + + + documented as of this encounter Visit Diagnoses Not on filedocumented in this encounter"
--- OUTSIDE RECORDS SUMMARY | ~2019-05-17 | XMS | Clinical Summary ---
Demographics + + + | Address | [address] | | | [place] [address] | + + + | Home Phone | | + + + | Preferred Language | Unknown | + + + | Marital Status | | + + + | Congregation Affiliation | SPI | + + + | Race | White | + + + | Ethnic Group | Not or | + + + Author + + + | Author | [facility] | + + + | Organization | [facility] | + + + | Address | Unknown | + + + | Phone | Unavailable | + + + Support + + +---------+ + | Name | Relationship | Address | Phone | + + +---------+ + | Gabriel Kelly | ECON | Unknown | | + + +---------+ + Care Team Providers + +------+ + | Care Brine Purifier Name | Role | Phone | + +------+ + | Zayda Hinton | PCP | | + +------+ + Source Comments YESSICA is fully live on both [facility] and [facility] InPatient.[facility] Allergies No Known Allergies Medications + + [...] | 05/29/2015 | + + + | [facility] RESEARCH PROTOCOL PATIENT (RESPRO) | 05/28/2015 | [...] | | 2019 | | Oncology | MRI TECHNICIAN | | +--------+ + + + + [...] in | | | | | | [place] [facility] | | | | | | [...] [address] | | | | | | [place], [place] | | | | | | [address] | | | | | | [phone] | | | | | | | [...] - | | | | | | /[id number] | | [id number]: Qty: 1 on | | | | | | 663 | | 09/07/2016 by Lobo Jeffers | | | | | | | | MD Ernesto at [facility] RE[facility] | | | | | [...] | | | 35 / | | [id number]: Qty: 1 on | | | | | | /[id number] | | 09/07/2016 by Lobo Jeffers | | | | | | 384 | | MD Ernesto at [facility] | | | | | [...] - | | | | | | /[id number] | | [id number]: Qty: 1 on | | | | | | 265 | | 09/07/2016 by Lobo Jeffers | | | | | | | | MD Ernesto at [facility] | | | | | [...] - | | | | | | /[id number] | | [id number]: Qty: 1 on | | | | | | 872 | | 09/07/2016 by Lobo Jeffers | | | | | | | | MD Ernesto at [facility] | | | | | [...] - | | | | | | /[id number] | | [id number]: Qty: 1 on | | | | | | 58 | | 09/07/2016 by Lobo Jeffers | | | | | | | | MD Ernesto at [facility] REV | | | | | | | | LOC | | | | | | | + +------+--------+ +--------+--------+--------+ | Head Femoral +0mm 12/14 | | Right: | MATT | | 04/07/ | [id number] | | Medium 36mm Hip Acetabulum | | Hip | | | 2027 | 13466 | | Biolox Delta Trilogy It | | | | | | / | | Continuum Sterile - | | | | | | /[id number] | | [id number]: Qty: 1 on | | | | | | 28 | | 12/19/2018 by Lobo Jeffers | | | | | | | | MD Ernesto at [facility] REV | | | | | | | | LOC | | | | | | | + +------+--------+ +--------+--------+--------+ | Shell Acetabular 56mm Hip | | Right: | MATT | | 07/08/ | [id number] | | Primary Modular Cluster Hole | | Hip | | | 2027 | 88200 | | Trabecular Metal Tantalum | | | | | | / | | Titanium Sterile - | | | | | | /07568 | | [id number]: Qty: 1 on | | | | | | 937 | | 12/19/2018 by Lobo Jeffers | | | | | | | | MD Ernesto at [facility] | | | | | | | | LOC | | | | | | | + +------+--------+ +--------+--------+--------+ | Screw Bone 6.5mm 25mm Trilogy | | Right: | MATT | | 11/05/ | [id number] | | Tivanium Hip Cortical | | Hip | | | 2028 | 6525 / | | Acetabulum Self Tap Sterile - | | | | | | | | [id number]: Qty: 1 | | | | | | /[id number] | | on 12/19/2018 by Zeyad, | | | | | | 886 | | Lobo Orozco MD at [facility] | | | | | | | | REV LOC | | | | | | | + +------+--------+ +--------+--------+--------+ | Liner Acetabular Trilogy | | Right: | MATT | | 08/08/ | [id number] | | Standard Neutral 7.9mm 56mm | | Hip | | | 2023 | 13900 | | 36mm Longevity Hip Sterile | | | | | | / | | Primary Modular Cup - | | | | | | /94967 | | [id number]: Qty: 1 on | | | | | | 456 | | 12/19/2018 by Lobo Jeffers | | | | | | | | MD Ernesto at [facility] | | | | | | | | LOC | | | | | | | + +------+--------+ +--------+--------+--------+ | Stem Femoral 138mm 13mm | | Right: | MATT | | 04/07/ | [id number] | | Primary Pressfit Trabecular | | Hip | | | 2020 | 00458 | | Metal Tivanium 06/21 43.5mm | | | | | | / | | Straight Extended - | | | | | | /52255 | | [id number]: Qty: 1 on | | | | | | 555 | | 12/19/2018 by Lobo Jeffers | | | | | | | | MD Ernesto at [facility] | | | | | | | | LOC | | | | | | | + +------+--------+ +--------+--------+--------+ Procedures + +--------+ + + + | Procedure Name | Priori | Date/Time | Associated Diagnosis | Comments | | | ty | | | | + +--------+ + + + | FL DX BONE MARROW BX | Routin | [...] | | | | ent of Pathology, [place] | | | | | | Health [...] CD123 | | | | | | [id number] HLA-DR sKappa | | | | | [...] + + + + | [facility] | [address] | [place] [address] | | | PATHOLOGY | [address] | | | + + + + + | [facility] | [address] | [place] [address] | | | [facility] | | | | | HEALTH + [...] + + + + + | [facility] | [address] | [place] [address] | | | SERVICES, [facility] | | | | | HEALTH [...] | | | LABORATORY | | | [place]ESE | | | SERVICES, | | | [...] MDRD equation recommended by the National | [facility] | | Kidney Disease Education Program. Estimated [...] | + + + + + | [facility] | [address] | [place] [address] | | | [facility] | | | | | HEALTH + [...] | MEDICA | xxxxxxxxxxx | 11/07/19 | [phone] | [address] | Medica | | | RE A & | | 18-Pre | 1 | [address] | re | | | B | | sent | | [place] | | | | | | | | [address] | | + +--------+ +--------+ + +--------+ [...] | | 1990 | | [place] [address] | | | varun | | | 6 (Home) | | + +--------+ +--------+ + + | Khurram Kelly | Case | Self | 08/08/ | | [address] | | [place] | Rate | | 1990 | | [place] [address] | | | | | | 6 (Home) | | + +--------+ +--------+ + + | Vivek Kellyemiah | UFC | Self | [birth year]/ | | [address] | | [place] | Joey | | 1991 | [phone] | [place] [address] | | | g Use | | | 6 ([place]) | | | | Only | | [...]
--- OUTSIDE RECORDS SUMMARY | ~2019-05-17 | XMS | Encounter Summary ---
Demographics + + + | Address | [address] | | | [place] [address] | + + + | Home Phone [...] Phone | + + +---------+ + | Gabreil Kelly | ECON | Unknown | | + + +---------+ + Care Team Providers + +------+ + | Care Patient Support Assistant Name | Role | Phone | + +------+ + | Zayda Hinton | PCP | | + +------+ + Encounter Details +--------+ + + + + | Date | Type | Department | Care Team | Description | +--------+ + + + + | 04/19/ | Pharmacy | Outpatient Retail | | | | 2015 | Visit | [facility] | | | | | | [address] | | | | | | [place], | | | | | | [place] [address] | | | +--------+ + + + [...] 2018 | Visit | Malignancy | [address] [facility] | | | | | | [address] | | | | | | [place], [place] | | | | | | [address] | | | | | | [phone] | | | | | | | | +--------+---------+ + + + documented as of this encounter Visit Diagnoses Not on filedocumented in this encounter"
--- OUTSIDE RECORDS SUMMARY | ~2019-05-17 | XMS | Encounter Summary ---
Demographics + + + | Address | [address] | | | [place] [address] | + + + | Home Phone [...] Team Providers + +------+ + | Care Front Desk Agent Name | Role | Phone | + [...] | | | | | | [place], | | | | | | [place] [address] | | | | | | [phone] | | | +--------+ + + + [...] 2019 | Visit | Malignancy | [address] [facility] | | | | | | [address] | | | | | | [place], [place] | | | | | | [address] | | | | | | [phone] | | | | | | | [...]
--- OUTSIDE RECORDS SUMMARY | ~2019-05-17 | XMS | Encounter Summary ---
Demographics + + + | Address | [address] | | | [place] [address] | + + + | Home Phone [...] Team Providers + +------+ + | Care Stone Rubber Name | Role | Phone | + +------+ + | Pending Pcp Addition | PCP | Unavailable | + +------+ + Reason for Visit +--------+ + | Reason | Comments | +--------+ + | Rash | | +--------+ + Encounter Details +--------+---------+ + + + | Date | Type | Department | Care Team | Description | +--------+---------+ + + + | 08/21/ | Office | Center for | Aspen Cummins FNP | S/P allogeneic bone | | 2017 | Visit | Hematologic | [address] | marrow transplant | | | | Malignancies at | [facility] [address] [facility] [address] | (HCC) (Primary Dx); | | | | Christian Barry | [place], [place] | Rash | | | | [address] | [address] | | | | | Debi Burger Mailcode: | [phone] | | | | | [id number] [facility] | | | | | | [place], | | | | | | [place] [address] | | | | | | [phone] | | | +--------+---------+ + + + [...] + + + | Blood Pressure | 120/75 | 08/21/2016 3:08 PM | | | | | PST | | + + + + + | Pulse | 100 | 08/21/2016 3:08 PM | | | | | PST | | + + + + + | Temperature | 36.7 C (98.1 F) | 08/21/2016 3:08 PM | | | | | PST | | + + + + + | Respiratory Rate | 18 | 08/21/2016 3:08 PM | | | | | PST | | + + + + + | Oxygen Saturation | 97% | 08/21/2016 3:08 PM | | | | | PST | | + + + + + | Inhaled Oxygen | - | - | | | Concentration | | | | + + + + + | Weight | 85.9 kg (189 lb 6 | 08/21/2016 3:08 PM | | | | oz) | PST | | + + + + + | Height | - | - | | + + + + + | Body Mass Index | 23.67 | 08/11/2016 9:07 AM | | | | | PST | | + + + + + documented in this encounter Progress Notes Aspen Cummins, [place] - 08/21/2016 2:45 PM PST 08/21/2016 [facility] MD: Yari Garcia MD Primary Oncologist: Yari Garcia MD Diagnosis: AMML, primary refractory Transplant Date: 08/27/15 Donor: MM URD (DPB1 permissive antigen mismatch, male, [id number]) Identifying Data: Khurram Kelly is a 26 [...] his L ankle. He was evaluated at [place] ED on 06/[address] angiogram negative [...] acute myelomonocytic leukemia. He was referred to [facility] for further evaluation and man agement of his newly dx'd AML. Pt was admitted to [facility] on 05/26/15. Peripheral blood was sent for [...] CD34, variable CD56, variable CD117, and dim HR952-gcpaj mickey; promonocyte immunophenotype (70% by flow): CD11b, [...] durin g taper. He is currently day +360 s/p transplant, s/p 6 cycles of azacitidine and returns to clinic today with c/o new onset rash. Interim History: Khurram was most recently evaluated in [facility] by me on 08/16/16. He presents with c/o mildly pruritic maculopapular rash that b crow on 08/18. Initially noted the rash after getting out of the shower. Began on his back, slowly progressing. Began applying triamcinolone cream yesterday. Otherwise feeling well. N o further c/o N/V, feels he's eating much better and pleased to have gained 3#. States he t ypically wakes in the morning with c/o abd cramping. Has a smoothie when he gets out of bed with resolution of his abd pain. Does not require antiemetics, no recurrence of abd pain dur ing the day. Review of Systems Constitutional: Positive for malaise/fatigue (better overall.). Gastrointestinal: Positive for abdominal pain (as above). Negative for diarrhea, nausea and vomiting. Skin: Positive for itching (after shower) and rash. Current Outpatient Prescriptions Medication Sig acyclovir 800 [...] twice daily triamcinolone acetonide 0.1 % topical ointment Apply to affected area two times daily. Apply thin film to affected areas. trimethoprim-sulfamethoxazole 160-800 mg oral tablet Take 1 tablet by mouth twice daily (every Sunday and ). No current facility-administered medications for this visit. Allergies Allergen Reactions Chlorhexidine Towelette Rash PAVAN cloths - ok to use Chloraprep for dresssing change per pt. Filed Vitals: 08/21/2016 3:08 PM Weight: 85.9 kg (189 lb 6 oz) BP: 120/75 Pulse: 100 Temp: 36.7 C (98.1 F) TempSrc: Oral Resp: 18 SpO2: 97% PainSc: 05 - Moderate to Severe PainLoc: Hip (Left) BMI: 23.67 kg/(m^2) Physical Exam Constitutional: He is well-developed, well-nourished, and in no distress. HENT: Head: Normocephalic and atraumatic. Mouth/Throat: Oropharynx is clear and moist. No oropharyngeal exudate. Eyes: Conjunctivae are normal. Pupils are equal, round, and reactive to light. Skin: Skin is warm and dry. Rash (maculopapular rash to chest, abd and back, < 10% BSA) not ed. Vitals reviewed. Lab Results Component Value Date BICARB 27 08/21/2016 TBILI 0.5 08/21/2016 CA 9.2 08/21/2016 CL 99 08/21/2016 CR 0.9 08/21/2016 GLU 110 (H) 08/21/2016 AP 114 (H) 08/21/2016 TP 6.5 08/21/2016 BUN 8 08/21/2016 ALB 3.6 08/21/2016 AST 62 (H) 08/21/2016 NA 134 08/21/2016 K 4.0 08/21/2016 ALT 95 (H) 08/21/2016 Assessment: Khurram Gambleliat is a 26 y.o. 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 He has been able to taper off prednisone as of 07/13/16, continues tacrolimus 0.5 mg po BID. He recently restarted oral bec lomethasone due to N/V and abd cramping; symptoms resolved. He presents today with c/o recurrent rash, began 08/18/16. It is non-pruritic. Again suspic ious for GvHD. He also has mild transaminitis, improved over the last 2 weeks. His only GI c /o today is AM cramping, resolves with po intake. Due to his current hip pain with AVN, marya tional steroid therapy should be avoided as able. Plan: 1. Continue triamcinolone cream BID 2. Continue beclomethasone QID 3. Advised pt to eat a snack before going to bed 4. Pt to contact me should rash progress; then recommend skin bx for definitive diagnosis prior to initiation of any systemic steroids 5. RTC for marrow studies, DEXA scan and PFTs on , 08/31/16; sooner prn 6. Additionally scheduled for f/u with Yari Garcia MD on 09/11/16 [facility] AT [address] Mailcode: [address] [place] [address] documented in this enc ounter [...] | | | | | | [place], [place] | | | | | | [address] | | | | | | [phone] | | | | | | | | +--------+---------+ + + + documented as of this encounter Procedures + +--------+ + + + | Procedure Name | Priori | Date/Time | Associated Diagnosis | Comments | | | ty | | | | + +--------+ + + + | CMP, POC (BMP+LFT) | Urgent | 08/21/2016 | S/P allogeneic | Results for this | | | | 3:44 PM | bone marrow | procedure are [...] SORTO | [address] | [place], [place] | | | RUTHIE CARTER OF KRISTA | [facility] | [address] | | | TESTS | | | [...] + + + | YESSICA SORTO | [address] | [place], [place] | | | RUTHIE CARTER OF [facility] | [address] | [address] | | | TESTS | | | | + + + + + documented in this encounter Visit Diagnoses + + | Diagnosis | + + | 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HCC) - Primary Bone marrow replaced by | | transplant | + + | Rash Rash and other nonspecific skin eruption | + + documented in this encounter"
--- OUTSIDE RECORDS SUMMARY | ~2019-05-17 | XMS | Encounter Summary ---
Demographics + + + | Address | [address] | | | [place] [address] | + + + | Home Phone [...] Team Providers + +------+ + | Care Nurse Chemical Dependency Name | Role | Phone | + +------+ + | Pending Pcp Addition | PCP | Unavailable | + +------+ + Reason for Visit + + + | Reason | Comments | + + + | Lab Draw | | + + + | Dressing change | | + + + | Follow-up visit | | + + + Benefits Check [...] | | | | | | [place], | | | | | | | [place] | | | | | | | [address] | | | | | | | Phone: | | | | | | | [phone] | | | | | | | Fax: | | | | | | | [phone] | +--------+--------+ + + + + Encounter Details +--------+ + + + + | Date | Type | Department | Care Team | Description | +--------+ + + + + | 03/06/ | Clinical | Center for | | Lab Draw; Dressing | | 2016 | Support | Hematologic | | change; Follow-up | | | Staff | [facility] at [facility] | | visit | | | | [address] | | | | | | [place] Burger Mailcode: | | | | | | [address] | | | | | | [place], | | | | | | [place] [address] | | | | | | [phone] | | | +--------+ + + + [...] + + + | Blood Pressure | 129/81 | 03/06/2016 9:08 AM | | | | | PDT | | + + + + + | Pulse | 82 | 03/06/2016 9:08 AM | | | | | PDT | | + + + + + | Temperature | 36.7 C (98 F) | 03/06/2016 9:08 AM | | | | | PDT | | + + + + + | Respiratory Rate | 16 | 03/06/2016 9:08 AM | | | | | PDT | | + + + + + | Oxygen Saturation | 98% | 03/06/2016 9:08 AM | | | | | PDT | | + + + + + | Inhaled Oxygen | - | - | | | Concentration | | | | + + + + + | Weight | 99.1 kg (218 lb 7.6 | 03/06/2016 9:08 AM | | | | oz) | PDT | | + + + + + | Height | - | - | | + + + + + | Body Mass Index | 27.74 | 01/25/2016 8:24 AM | | | | | PDT | | + + + + + documented in this encounter Progress Notes Jessica Ramirez, ZAFAR - 03/06/2016 11:10 AM PDTPatient arrives ambulatory for lab draw, keely ssing change OV and possible infusions. 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 Patient reports he is feeling well today. He played volleyball yesterday with family and wa s fatigued after that. The patient denies colds, flu, fever, infection, nausea, vomiting, d iarrhea, constipation, signs or symptoms of anemia, edema, skin rash, urinary issues, and si gns or symptoms of bleeding. The patient reports that he is eating well and drinking at least two liters of fluid daily. Trifusion accessed per protocol. Good blood return noted. Appropriate waste discarded. L abs drawn and sent. Trifusion pulse flushed with 20 mL NS and 5 mL of 10 units/mL Heparin. Patient scheduled for provider visit today with Dr. Garcia. Dressing Change:Trifusion intact to left anterior chest wall without erythema or induration . Dressing removed, skin intact without s/s exit site or tunnel infection. Using a Central Line Dressing Change kit, site cleansed with Chloraprep. Skin prep applied prior to dressi ng application. Biopatch applied with SorbaView dressing. Positive pressure valves change d to each port. All lumens pulse flushed with 5 mL of 10 units/mL Heparin. Patient tolerate d procedure without difficulty. Labs resulted and no replacements needed. Patient left ambulatory after provider appointme nt. documented in this encounter Plan of Treatment +--------+---------+ + + + | Date | Type | Specialty | Care Team | Description | +--------+---------+ + + + | 05/19/ | Lab | Phlebotomy | | | | 2018 | | | | | +--------+---------+ + + + | 05/19/ | Office | Hematology | Yari Gacria MD | | | 2019 | Visit | Malignancy | [address] | | | | | | [facility] | | | | | | [place], [place] | | | | | | [address] | | | | | | [phone] | | | | | | | | +--------+---------+ + + + documented as of this encounter Procedures + +--------+ + + + | Procedure Name | Priori | Date/Time | Associated Diagnosis | Comments | | | ty | | | | + +--------+ + + + | BMP + MAG, POC CHM | Routin | 03/06/2016 | S/P allogeneic | Results for this | | | e | 9:30 AM | bone marrow | procedure are in the | | | | PDT | transplant (HCC) | results section. 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[facility])- primary | | | | | | induction failure | | + +--------+ + + + | CBC+DIFF,POC | Routin | 03/06/2016 | S/P allogeneic | Results for this | | | e | 9:21 AM | bone marrow | procedure are in the | | | | PDT | transplant (HCC) | results section. 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[facility])- primary | | | | | | induction failure | | + +--------+ + + + | CMV PCR | Routin | 03/06/2016 | S/P allogeneic | Results for this | | QUANTITATION, PLASMA | e | 9:07 AM | bone marrow | procedure are in the | | | | PDT | transplant ([facility]) | results section. 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 | | + +--------+ + + + | LIVER SET | Urgent | 03/06/2016 | S/P allogeneic | Results for this | | (AST,ALT,BILI | | 9:07 AM | bone marrow | procedure are [...] + | TREATMENT PARAMETERS | Routin | 03/06/2016 | 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 | 9:06 AM | leukemia (AML), M4 | | | | | PDT | ([facility])- primary | | | | | | induction failure | | + +--------+ + + + | TREATMENT PARAMETERS | Routin | 03/06/2016 | 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 | 9:06 AM | leukemia (AML), M4 | | | | | PDT | ([facility])- primary | | | | | | induction failure | | + +--------+ + + + | TREATMENT PARAMETERS | Routin | 03/06/2016 | 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 | 9:06 AM | leukemia (AML), M4 | | | | | PDT | ([facility])- primary | | | | | | induction failure | | + +--------+ + + + | TREATMENT PARAMETERS | Routin | 03/06/2016 | 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 | 9:06 AM | leukemia (AML), M4 | | | | | PDT | ([facility])- primary | | | | | | induction failure | | + +--------+ + + + | TREATMENT PARAMETERS | Routin | 03/06/2016 | 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 | 9:06 AM | leukemia (AML), M4 | | | | | PDT | ([facility])- primary | | | | | | induction failure | | + +--------+ + + + | NURSING | Routin | 03/06/2016 | S/P allogeneic | | | COMMUNICATION #5 - | e | 9:06 AM | bone marrow | | | [facility] | | PDT | transplant (HCC) | 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[facility])- primary | | | | | | induction failure | | + +--------+ + + + | NURSING | Routin | 03/06/2016 | S/P allogeneic | | | COMMUNICATION #4 - | e | 9:06 AM | bone marrow | | | [facility] | | PDT | transplant (HCC) | 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[facility])- primary | | | | | | induction failure | | + +--------+ + + + | NURSING | Routin | 03/06/2016 | S/P allogeneic | | | COMMUNICATION #3 - | e | 9:06 AM | bone marrow | | | [facility] | | PDT | transplant (HCC) | 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[facility])- primary | | | | | | induction failure | | + +--------+ + + + | NURSING | Routin | 03/06/2016 | S/P allogeneic | | | COMMUNICATION #3 - | e | 9:06 AM | bone marrow | | | [facility] | | PDT | transplant (HCC) | 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 | | + +--------+ + + + | NURSING | Routin | 03/06/2016 | S/P allogeneic | | | COMMUNICATION #2 - | e | 9:06 AM | bone marrow | | | [facility] | | PDT | transplant (HCC) | 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 | | + +--------+ + + + | NURSING | Routin | 03/06/2016 | S/P allogeneic | | | COMMUNICATION #2 - | e | 9:06 AM | bone marrow | | | [facility] | | PDT | transplant (HCC) | 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 | | + +--------+ + + + | NURSING | Routin | 03/06/2016 | S/P allogeneic | | | COMMUNICATION #1 - | e | 9:06 AM | bone marrow | | | [facility] | | PDT | transplant (HCC) | 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 | | + +--------+ + + + | NURSING | Routin | 03/06/2016 | S/P allogeneic | | | COMMUNICATION #1 - | e | 9:06 AM | bone marrow | | | [place] | | PDT | transplant (HCC) | 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 | | + +--------+ + + + | GUIDELINES FOR | Routin | 03/06/2016 | S/P allogeneic | | | ORDERING #1 - [place] | e | 9:06 AM | bone marrow | | | | | PDT | transplant (HCC) | 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 | | + +--------+ + + + | TREATMENT PARAMETERS | Routin | 03/06/2016 | S/P allogeneic | | | #1 - [place] | e | 9:06 AM | bone marrow | | | | | PDT | transplant (HCC) | 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 | | + +--------+ + + + | TREATMENT PARAMETERS | Routin | 03/06/2016 | S/P allogeneic | | | #1 - [facility] | e | 9:06 AM | bone marrow | | | | | PDT | transplant (HCC) | 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 | | + +--------+ + + + | TREATMENT PARAMETERS | Routin | 03/06/2016 | S/P allogeneic | | | #1 - [facility] | e | 9:06 AM | bone marrow | | | | | PDT | transplant (HCC) | 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 | | + +--------+ + + + documented in this encounter Results JEANETH + PHIL ROBERTSON (03/06/2016 9:30 AM PDT) + +---------+ + + + [...] + + + | LDH, POC | 358 (H) | 0 - 206 U/L | [...] MACARIO | [address] | [place], [place] | | | RUTHIE CARTER OF CARE | [address] | [address] | | | TESTS | | | | + + + + + CBC+DIFF,POC (03/06/2016 9:21 AM PDT) + + + + + [...] + + + | RBC POC | 3.27 (L) | 4.50 - 6.00 | [facility] [...] + + + | HCT POC | 35.9 (L) | 41.0 - 53.0 % | [facility] - | | | | | | [place] | | | | | | [facility] POINT | | | | | | OF CARE | | | | | | TESTS | | + + + + + + | MCV POC | 109.8 (H) | 80.0 - 96.0 fL | [facility] - | | | | | | [place] | | | | | | [facility] POINT | | | | | | OF CARE | | | | | | TESTS | | + + + + + + | MCH POC | 36.1 (H) | 28.5 - 32.3 pg | [...] | | | | | g/dL | [place] | | | | | | [facility] POINT | | | | | | OF CARE | | | | | | TESTS | | + + + + + + | RDW SD, POC | 56.2 (H) | 35.1 - 46.3 fL | [facility] - | | | | | | [place] | | | | | | [place], POINT | | | | | | OF CARE | | | | | | TESTS | | + + + + + + | PLT POC | 135 (L) | 150 - 400 | [facility] [...] + + + + | NEUTROPHIL% | 65.0 | 50.0 - 70.0 % | [facility] - | | | POC | | | [place] | | | | | | EMMA POINT | | | | | | OF CARE | | | | | | TESTS | | + + + + + + | LYMPH% POC | 22.9 | 18 - 42 % | [facility] - | | | | | | [place] | | | | | | [facility], POINT | | | | | | OF CARE | | | | | | TESTS | | + + + + + + | MONO %, POC | 8.4 | 3.5 - 9.0 % | [facility] [...] + + | YESSICA SORTO | [address] | [place], [place] | | | [facility] POINT OF CARE | [address] | [address] | | | TESTS | | | | + + + + + LIVER SET (AST,ALT,BILI TOTAL,BILI DIRECT,ALK PHOS,ALB,PROT TOTAL) (03/06/2016 9:07 AM PDT ) + +---------+ + + [...] + + + | ALK PHOS | 91 | 53 - 128 U/L | [facility] | | | | | | LABORATORY | | | | | | SERVICES, | | | | | | CORE | | + +---------+ + + + | AST(SGOT) | 67 (H) | <=41 U/L | [facility] | | | | | | LABORATORY | | | | | | SERVICES, | | | | | | CORE | | + +---------+ + + + | ALT (SGPT) | 143 (H) | <=60 U/L | [facility] | [...] + + + + + | [facility] | [address] | [place] [address] | | | SERVICES, CORE | [address] | | | + + + + + CMV PCR QUANTITATION, PLASMA (03/06/2016 9:07 AM PDT) + + + + + [...] 2 fold may not reflect true | [facility] | | biological changes and must be [...] | | | characteristics determined by the [facility] | | | [facility] Diagnostic Center. It has not been cleared or approved by | | | the Food and Drug Administration. FDA approval is not required for | | | clinical use of this test, and therefore validation was done as | | | required under the requirements of the Clinical Laboratory Improvement | | | Act of 1988. The [facility] | | | Diagnostic Center is a fully licensed and/or accredited clinical | | | laboratory under CLIA, CAP, and the [facility]. | | + + + + + + + + | Performing | Address | City/State/Zipcode | Phone Number | | Organization | | | | + + + + + | [facility] | [address], | [place] [address] | | | DIAGNOSTIC | [address] [...] 10 unit/mL IV flush | Given | // | 50 Units | | | | syringe 50 Units 50 Units, | | 16 9:30 | | | | | Intracatheter, NEEDED, | | AM PDT | | | | | Starting Sun03/06/16 at 1108, | | | | | | | Until Sun03/06/16 at 1720, line | | | | | | | patency | | | | | | + +--------+ + +------+------+ +-------+ + +---+---+ | Given | 03/06/20 | 50 Units | | | | | 16 9:21 | | | | | | AM PDT | | | | +-------+ + +---+---+ | Given | 03/06/20 | 50 Units | | | | | 16 9:20 | | | | | | AM PDT | | | | +-------+ + +---+---+ +---+---+ | | | +---+---+ documented in this encounter"
--- OUTSIDE RECORDS SUMMARY | ~2019-05-17 | XMS | Encounter Summary ---
Demographics + + + | Address | [address] | | | [place] [address] | + + + | Home Phone [...] + + + + | 10/12/ | Document-Sc | Health Information | Unknown . | | | 2015 | anned | Services [id number] | | | | | | [address] | | | | | | Mailcode: [id number] | | | | | | [facility] | | | | | | [place], [place] | | | | | | [address] | | | | | | [phone] | | | +--------+ + + + [...] 2019 | Visit | Malignancy | [address] [facility] [address] | | | | | | [address] | | | | | | [place], [place] | | | | | | [address] | | | | | | [phone] | | | | | | | | +--------+---------+ + + + documented as of this encounter Procedures + +--------+ + + + | Procedure Name | Priori | Date/Time | Associated Diagnosis | Comments | | | ty | | | | + +--------+ + + + | ORDERS OTHER | | 10/13/2015 | | Results for this | | | | 12:00 AM | | procedure are in the | | | | PDT | | results section. | + +--------+ + + + documented in this encounter Results ORDERS OTHER (10/13/2015 12:00 AM PDT) + + + | Narrative | Performed At | + + + | | | + + + documented in this encounter Visit Diagnoses Not on filedocumented in this encounter"
--- OUTSIDE RECORDS SUMMARY | ~2019-05-17 | XMS | Encounter Summary ---
Demographics + + + | Address | [address] | | | [place] [address] | + + + | Home Phone [...] Team Providers + +------+ + | Care Mail Carrier And Clerk Name | Role | Phone | + +------+ + | Pending Pcp Addition | PCP | Unavailable | + +------+ + Reason for Visit + + + | Reason | Comments | + + + | Transplant | LIT HLA Family results | + + + Encounter Details +--------+ + + + + | Date | Type | Department | Care Team | Description | +--------+ + + + + | 07/28/ | Documentati | Kidney Transplant | Luis Carlos Sanders, | Transplant (LIT HLA | | 2016 | on | at [facility] | [address] | Family results) | | | | [address] | [address] | | | | | [place] Mailcode: | [place], [place] | | | | | [address] Physician's | [address] | | | | | [address] | [phone] | | | | | [place], [place] | | | | | | [address] | | | | | | [phone] | | | +--------+ + + + [...] Rd | | | | | | [place], [place] | | | | | | [address] | | | | | | [phone] | | | | | | | | +--------+---------+ + + + documented as of this encounter Visit Diagnoses Not on filedocumented in this encounter"
--- OUTSIDE RECORDS SUMMARY | ~2019-05-17 | XMS | Encounter Summary ---
Demographics + + + | Address | [address] | | | [place] [address] | + + + | Home Phone [...] Team Providers + +------+ + | Care Ambulance Mechanic Name | Role | Phone | [...] + + + + | 08/18/ | Hospital | [facility] [address] | Yari Garcia MD | | | 2016 - | Encounter | [address] | [address] | | | | | Mailcode: [id number] | [address] | | | 09/12/ | | [address] | [place], [place] | | | 2015 | | [place], [place] | [address] | | | | | [address] | [phone] | | | | | [phone] | | | | | | | Lobo Rizzo, | | | | | | Daniel Obrien, | | | | | | [address] | | | | | | [address] | | | | | | [place], [place] | | | | | | [address] | | | | | | [phone] | | | | | | | | | | | | Lamin Funes MD,PhD | | | | | | [address] | | | | | | [address] | | | | | | [place], [place] | | | | | | [address] | | | | | | [phone] | | | | | | | [...] + + + | Blood Pressure | 129/78 | 09/13/2015 11:45 AM | | | | | PST | | + + + + + | Pulse | 71 | 09/13/2015 11:45 AM | | | | | PST | | + + + + + | Temperature | 37.3 C (99.1 F) | 09/13/2015 11:45 AM | | | | | PST | | + + + + + | Respiratory Rate | 16 | 09/13/2015 11:45 AM | | | | | PST | | + + + + + | Oxygen Saturation | 99% | 09/13/2015 11:45 AM | | | | | PST | | + + + + + | Inhaled Oxygen | - | - | | | Concentration | | | | + + + + + | Weight | 84.9 kg (187 lb 1.6 | 09/09/2015 2:09 PM | | | | oz) | PST | | + + + + + | Height | 187.3 cm (6' 1.75") | 08/18/2015 4:35 PM | | | | | PST | | + + + + + | Body Mass Index | 24.19 | 08/18/2015 4:35 PM | | | | | PST | | + + + + + documented in this encounter Discharge Summaries Wilian Apodaca, TWISTING PRESS OPERATOR - 09/13/2015 4:16 PM PSTFormatting of this note might be different f rom the original. INPATIENT PROVIDER DISCHARGE SUMMARY Attending Physician: Yari Garcia MD [facility] Physician: Yari Garcia MD PCP: Pending Pcp ADDITION Hematological Malignancy: Primary Refractory AML Conditioning regimen: tBuCy Date of transplant: 08/27/2015 (two day 0s) Donor: MM URD (DPB1 permissive antigen mismatch, male, [id number]) Reason for admission: tBuCy MMURD for refractory AML Admission Date: 08/18/2015 Discharge Date: 09/13/2015 Diagnoses Principal Final Diagnosis: Acute myeloid leukemia (AML), M4 - primary induction failure Additional Diagnoses: Electrolyte abnormality ADHD (attention deficit hyperactivity disorder) Immunocompromised state associated with 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 Hosp ital course was complicated by: pancytopenia, neutropenic fever, pneumonia, mucositis (grade 3 at worst) with hematemesis, CINV, diarrhea, hypertension, rash, conjunctival injection. WBC/ANC have recovered and he will discharge with close follow up in short-term clinic at [facility] for Hematologic Malignancies. -Refractory AML: s/p tBuCy MM URD, currently day +17. Will require day +30 BM Bx due to pe rsistent disease prior to transplant. -IST: tacrolimus (goal 5-10) + long-course MTX. Last 2 doses of MTX were followed by leuco vorin rescue due to mucositis. -Anemia/Thrombocytopenia: WBC/ANC recovering, ANC up to 6920 on day of discharge. Last dos e of neupogen given 09/11/15. Standard transfusion parameters. There is no blood product sup port required at this time. -Lytes: standard repletion protocol. Mg replacement required today. -Neutropenic Fever/Pneumonia: last fever 09/07/15. CT chest 09/07/15 - multifocal bacterial pne umonia. On IV abx through count recovery then with Levaquin 750 mg PO through 09/13/15 per ID for pneumonia -Hemoptysis: fresh blood seen in back of throat from healing mucositis, improved with plate let transfusion. If ongoing, may need to consider ENT consult, possible scope for bleeding v essel/erosion. -Mucositis: grade 2 with healing ulcerations to posterior oropharynx (grade 3 at worst). 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 Improved on amlodipine. -Rash: derm biopsy 09/06/15 - SUBTLE VACUOLAR INTERFACE DERMATITIS, the changes are consiste nt with eruption of lymphocyte recovery and early mild ldygk-pavdkx-lafl disease. However g iven pancytopenia at that time, skin GvHD was less likely and rash was thought to be due to Zosyn. Rash has not progressed. -Conjunctival Injection: right eye. Injection developed ~2 days prior to discharge with no associated discharge or URI symptoms. Evaluated by Ophthalmology and DDx includes infectio us causes vs inflammatory (scleritis or anterior uveitis) vs medication induced. Clinical pr esentation seems to be most consistent with inflammatory/uveitic etiology. [facility] with ophthalmology as an outpatient at [facility], scheduled for 09/15/15 at 10 am. SUMMARY OF PATIENT'S HOSPITALIZATION Past Medical History: Khurram Kelly is a 25 year old male admitted for initiation of pre-transplant conditioning with targeted busulfan and cytoxan prior to MM unrelated donor PBSCT for treatm ent of primary refractory AML. Treatment History: Khurram Kelly is a 25 y.o. [...] his L ankle. He was evaluated at [facility] ED on 06/[address] angiogram negative [...] leukemia. He was referred to [facility] for further evaluation and man agement of his newly dx'd AML. Pt was admitted to [facility] on 05/26/15. Peripheral blood was [...] CD34, variable CD56, variable CD117, and dim OH261-xmbny mickey; promonocyte immunophenotype (70% by flow): CD11b, [...] No recurrence of oral cavity/upper chest pain. Hospitalization History: Hematology: #Refractory AML Conditioning regimen: tBuCy -Busulfan 1 mg/kg/dose PO every 6 hours on days -7, -6, -5 and -4; he received clonazepam a nd levetiracetam as prophylaxis for busulfan-induced seizures. -Cyclophosphamide 60 mg/kg IV over 2 hours daily on days -3 and -2. With this, he will rece mickey mesna 60 mg/kg/day as a continuous infusion beginning just prior to the first dose of cy toxan and completing 24 hours after the second dose. Stem cell transplant -BMT Day: +17 -Tolerated MM (DPB1 permissive antigen mismatch) URD stem cell product on 08/26-08/27 (two d ay 0s) without complications. CD 34 count = 5.96 x 10^6 per kg #Anemia/Thrombocytopenia: WBC/ANC recovering, ANC up to 6920 on day of discharge. -See supportive care #Supportive Care: Growth Factor: Began daily Neupogen dosing on Day +12 (09/07) and continue until ANC > 150 0 x 2 consecutive days. Last dose 09/11/15. 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 -Received all MTX doses in full. Leucovorin rescue after days +6 and +11 doses. Staging: Skin: Grade 0 Gut: Grade 0 Liver: Grade 0 Overall stage: 0 HEENT: #Conjunctival Injection: right eye. Injection developed ~2 days prior to discharge with no associated discharge or URI symptoms. Evaluated by Ophthalmology and DDx includes infectio us causes vs inflammatory (scleritis or anterior uveitis) vs medication induced. Clinical pr esentation seems to be most consistent with inflammatory/uveitic etiology. -Patient to follow up with ophthalmology as an outpatient at [facility], schedule d for 09/15/15 at 10 am. Pulmonary: Pretransplant PFTs completed on 08/09/2015 showed FEV1 of 99% predicted, FVC of 110% predicted and DLCO of 82% predicted. #PNA: See ID section below, Cardiovascular: Pretransplant TTE completed on 08/10/2015 showed a LVEF of 55-60%. 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 Resolved. -Received Nexium IV and plt parameter 50K until resolved, then back to Omeprazole and stand mary plt parameters. #CINV: now improved. Off scheduled meds. Was on scheduled Marinol, zofran, zyprexa. PRN ati van and phenergan. #Diarrhea: likely related to treatment as C diff negative on 08/31/25 & #Mucositis: grade 2 (grade 3 at worst), now healing with count recovery. Received dilaudid AUTOMATIC DRY STARCH OPERATOR until 09/10. Received Leucovorin rescue after MTX doses Renal: #VIKI: with rise in sCr to 1.35 noted on 09/07/15, most likely from supratherapeutic Vancomyci n level in setting concurrent CNI. sCr wnl with holding of Tacrolimus, stopping of Vancomyc in, and NS 500mL bolus x1. Monitor. 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 However g iven pancytopenia at that time, skin GvHD was less likely and rash was thought to be due to Zosyn. Rash has not progressed. Infectious Disease: #Neutropenic Fever/Pneumonia: first noted on 08/30/15, last fever 09/07/15. Blood cultures wi th NGTD. RVP 09/06/15 - negative. CT chest 09/07/15 - Tree in bud nodularity within the machine setter and repairer ior basal RLL, medial RML and posterior RUL most consistent with multifocal bacterial pneumo indu. -ID consulted for assistance with management given recurrent neutropenic fevers -Pulmonary consulted: re-evaluation of chest imaging most consistent with aspiration, bron choscopy NOT warranted -Cefepime (08/30-09/03), switched to Zosyn for persistent fevers -Zosyn (09/03-), switched to Cefepime + Flagyl combination due to interaction of PCN wit h Methotrexate -Cefepime (-09/09), stopped with count recovery. -Flagyl (-09/07) -Levaquin 750 mg PO x through 09/12 to finish course per ID for PNA #R Neck Trifusion Infection: s/p CVC removal on 08/22, site less tender and erythematous. R eplaced Trifusion on prior to PBSCT -Vancomycin (08/21-09/06), recommended through 08/31 per ID but continued past this date due to persistent fevers #Prophylaxis: Bacterial: Abx as above Fungal: Fluconazole started day 0 Viral: Valacyclovir started day +1; switched to Acyclovir IV d/t mucositis, upon discharge will need oral therapy. PCP: Bactrim day of admission through day -1 then received Pentamidine on 09/12/15. #Routine infectious disease testing -CMV by PCR weekly, starting after day 0. (Pt and donor CMV+) Lab Results Component Value Date CMVQUANTPCR Undetected 09/12/2015 CMVQUANTPCR Undetected 09/05/2015 CMVQUANTPCR Undetected 08/29/2015 CMVQUANTPCR Undetected 08/22/2015 -Asp. Galactomannan weekly, starting after day 0. Lab Results Component Value Date GALACTO Negative 09/12/2015 -IgG every other week and repleted if falls <300 Lab Results Component Value Date IGG 526* 09/04/2015 Fluid/Nutrition/Lytes: #Nutrition: Low bacteria diet, TPN added 09/03 with decreased PO intake and worsening mucosi tis. Stopped 09/09 with healing mucositis. #Fluid: NS boluses PRN elevated sCr #Lytes: Continue to check chemistries twice weekly. Replace per supportive care protocol. DAY OF DISCHARGE Subjective: Right eye still red, but a little more tender in the past day. No vision beltran ges. No further bleeding from back of mouth. Objective: Last Vitals: BP 129/78 | Pulse 71 | Temp 37.3 C (99.1 F) | RR 16 | Ht 1.873 m (6' 1.75" ) | Wt 84.868 kg (187 lb 1.6 oz) | SpO2 99% | BMI 24.19 kg/(m^2) 24 Hour Vital Min/Max: Systolic (24hrs), Av mmHg, Min:129 mmHg, Max:146 mmHg Diastolic (24hrs), Av mmHg, Min:74 mmHg, Max:86 mmHg Pulse Min: 71 Max: 92 Temp Min: 37.1 C (98.8 F) Max: 37.5 C (99.5 F) Resp Min: 16 Max: 18 SpO2 Min: 97 % Max: 99 % Intake/Output Summary (Last 24 hours) at 09/13/15 1514 Last data filed at 09/13/15 0800 Gross per 24 hour Intake 1585 ml Output 1615 ml Net -30 ml Physical Exam: General: This is a male in no acute distress. Laying back in bed. HEENT: PERRL. Sclerae anicteric. Oral mucosa is pink and moist, healing ulceration to po sterior pharynx and uvula. Right eye mildly injected and tender to palpation. Skin: No rashes or lesions. Chest: Lungs clear to auscultation bilat. CV: RRR, no murmurs. Abdomen: S/NT/ND with NABS. No HSM appreciated. Extremities: Pulses strong and equal bilaterally. No c/c/e. Neuro: Alert and oriented x 3. Grossly nonfocal exam. CVC: LCW Trifusion in place w/o inflammation or induration. Dressing c/d/i Laboratory Results: Recent Labs 09/10/15229909/11/153 09/12/15 2326 NA 144 143 142 K 3.7 3.9 3.9 CL 113* 109* 109* BICARB 21 25 25 BUN 22* 19 18 CR 0.91 0.94 0.96 GLU 90 95 121* CA 8.1* 8.0* 8.3* AST 18 22 19 ALT 28 31 35 AP 63 83 96 TBILI 0.5 0.5 0.4 TP 5.8* 6.1* 6.1* ALB 2.7* 2.9* 3.0* Recent Labs 09/10/15229909/11/15 2313 09/12/15 2326 WBC 2.83* 5.46 9.27 RBC 3.11* 2.93* 2.95* HB 9.1* 8.5* 8.6* HCT 25.9* 24.4* 24.9* PLT 29* 34* 30* NEUTROPERC 62.8 78.6* 74.6* LYMPHPERC 17.7* 7.1* 9.6* MONOPERC 12.4* 8.0 11.4* BASOPERC 0.9 1.8 0.0 EOSPERC 0.0* 0.9* 0.9* Discharge Medication List as of 09/13/2015 3:33 PM START taking these medications Details amLODIPine 5 mg oral tablet Take 1 tablet by mouth once daily., Disp-30 tablet, R-2, eRx fluconazole 200 mg oral tablet Take 2 tablets by mouth once daily., Disp-60 tablet, R-3, eR x omeprazole 20 mg oral capsule,delayed release(DR/EC) Take 1 capsule by mouth before breakfa st., Disp-30 capsule, R-1, eRx !! tacrolimus 0.5 mg oral capsule Your current dose is 2mg twice daily. Combine the 1mg and 0.5mg pills to make the correct dose. The dose will change based on your blood levels., Dis p-120 capsule, R-3, eRx !! tacrolimus 1 mg oral capsule Your current dose is 2mg twice daily. Combine the 1mg and 0 .5mg pills to make the correct dose. The dose will change based on your blood levels., Disp- 120 capsule, R-3, eRx ursodiol 300 mg oral capsule Take 1 capsule by mouth two times daily for 5 days., Disp-10 c apsule, R-0, eRx !! - Potential duplicate medications found. Please discuss with provider. CONTINUE these medications which have CHANGED or have new prescriptions Details acyclovir 800 mg oral tablet Take 1 tablet by mouth two times daily., Disp-60 tablet, R-5, eRx ALPRAZolam 0.5 mg oral tablet Take 2 tablets by mouth three times daily as needed for anxie ty., Disp-90 tablet, R-2, eRx Lactulose 10 gram oral packet Take 10 grams (one packet) by mouth twice daily as needed (co nstipation)., Disp-30 packet, R-0, No Print oxyCODONE, immediate release, 15 mg oral tablet Take 1 to 2 tablets by mouth every four lorrie rs as needed for moderate pain., Disp-60 tablet, R-0, eRx senna-docusate 8.6-50 mg oral tablet Take 1 tablet by mouth twice daily as needed (constipa tion)., Disp-30 tablet, R-1, OTC CONTINUE these medications which have NOT CHANGED Details ondansetron 4 mg oral tablet Take 1 to 2 tablets by mouth every twelve hours as needed for nausea/vomiting., Disp-30 tablet, R-5, eRx prochlorperazine 5 mg oral tablet Take 1 tablet by mouth every six hours as needed for naus ea/vomiting. Max dose: 40 mg/day, Disp-30 tablet, R-5, eRx sertraline (ZOLOFT) 25 mg oral tablet Take 1 tablet by mouth once daily. Indications: Anxie ty with Depression, Disp-30 tablet, R-5, eRx STOP taking these medications chlorhexidine 0.12 % mucous membrane mouthwash Comments: Reason for Stopping: docusate sodium 100 mg oral capsule Comments: Reason for Stopping: lactulose 10 gram/15 mL oral solution Comments: Reason for Stopping: levofloxacin 500 mg oral tablet Comments: Reason for Stopping: posaconazole DR 100 mg oral tablet,delayed release (DR/EC) Comments: Reason for Stopping: Maintain Intravenous Catheter Catheter Care:Biopatch and transparent dressing changed weekly (to be done in clinic).Hepar in Flush (for Neostar catheters). Flush each lumen of central catheter with 5 mL Heparin d aily or after medications Diet Low Bacteria Low bacteria diet- You should choose foods that have a low bacterial content to reduce the risk of infection. Your nurse or cook frozen dessert will provide you with information about foods to avoid. Activity Activity restrictions: Avoid large crowds and people that are obviously ill. Practice good hand washing hygiene. Wear a mask when you are coming in and out of clinic. Careful with phy sical activity when your platelets are low to prevent bleeding. No driving when using narcot ics or sedating medications. Other Discharge Orders and Instructions Call the BMT clinic ([phone]) or BMT person on-call ([phone]) for: Any temp > 100.4 Nausea/vomiting unresponsive to compazine or ativan Significant diarrhea despite Imodium Inability to drink at least 2 liters of fluid daily Bleeding Over the counter Medication- use as needed: __ Benadryl (Diphenhydramine) 25 mg by mouth every 6 hours as needed for sleep, itching, na usea or restlessness. __ Antacids- One ounce or one tablet every 2-4 hours as needed for heartburn. Call you doc tor if heartburn persists or isn t relieved with this medication. __ Laxative- Senokot-S one to two twice a day as needed. This is a medication you can use to soften your stools and decrease constipation. Call your doctor if the above measures do not relieve your constipation. *Avoid all enemas and suppositories* __ Anusol Cream- Apply a small amount to external rectal area as needed for hemorrhoidal di scomfort. Do not apply internally. Call you doctor for persistent discomfort, bleeding or pain. __ Lubriderm lotion- apply to skin twice a day as needed to treat dry skin __ Eucerin Cream apply to skin twice a day as needed to treat dry skin. __ Sunscreen as needed SPF 15 or greater. Apply to sun-exposed skin before exposure t o direct sunlight or outside activities. Destination: Destination: Home Condition on Discharge Good Future Appointments Provider Department Dept Phone Center 09/14/2015 12:40 PM [facility] NURSE; [facility] at [facility] [phone] Center for H 09/14/2015 1:15 PM Lizzie Leavitt; [facility] MA SUPPORT Center for Hematologic Malignancies at [facility] [phone] Center for H 09/15/2015 10:00 AM Michael Carrera [facility]/Ophthalmology at [facility] [phone] [facility] 09/17/2015 12:10 PM [facility]ION NURSE; M INFUSION [facility] for [facility]ologic Malignancies at [facility] [phone] Center for H 09/17/2015 12:45 PM Lizzie Leavitt; [facility] MA SUPPORT Center for Hematologic Malignancies at [facility] [phone] Center for H 09/21/2015 10:40 AM [facility] IN[facility]ION NURSE; M INFUSION [facility] for H[facility]ologic Malignancies at [facility] [phone] Center for H 09/21/2015 11:15 AM Lizzie Leavitt; [facility] MA SUPPORT Center for Hematologic Malignancies at [facility] [phone] Center for H 09/24/2015 8:10 AM [facility] NURSE; [facility]ancies at [facility] [phone] Center for H 09/24/2015 8:45 AM Lizzie Leavitt; [facility] MA SUPPORT Center for Hematologic Malignancies at [facility] [phone] Center for H ORLY Arteaga [facility] [id number] [facility] Mailcode: [id number] [place] [address] Discharging Provider: ORLY Arteaga Attending Physician: Yari Garcia MD I spent >30 minutes in discharge planning, meds, and follow-up documented in this encounter Discharge Instructions Instructions Idalia Fong RN - 09/13/2015Check your oral temperature twice a day and whe never you feel like you may have chills or a fever. Drink at least 2 Liters of fluids per day to prevent dehydration. Shower daily and WASH YOUR HANDS frequently. Avoid the use of potentially irritating skin products (perfume, cologne, scented lotions, e tc.) Rinse out your mouth with normal saline or salt water at least 4x/day. Make sure to brush your teeth at least 2x/day and as needed after meals (if your platelets are <50K, use a soft toothbrush and do not floss). Cover your central line when showering/bathing (avoid swimming pools, hot tubs, saunas, and whirlpools until your CVC is removed). Refrain from prolonged periods of time in the sun and make sure you ALWAYS wear sunscreen w hen outdoors. Clean surfaces with antibacterial wipes. Have your caregiver bathe and clean up after any pets. Wear a mask when around large groups of people. NO SICK CONTACTS! If this cannot be avoided and you suspect someone may be even mildly ill, have them wear a mask or wear one yourself. Stay active! Perform short periods of activity, then make sure to take time for rest. Call if you have any questions! BMT CLINIC ([facility]) during clinic hours (M-F 8:30-4:30): [phone] BMT CLINIC ([facility]) at all other times: [phone] 14KPV: [phone] documented in this encounter Progress Notes Yari Garcia MD - 09/13/2015 10:15 PM PST 09/13/2015 Hematologic Malignancies/Blood and marrow Transplant Attending Note I have reviewed and agree with the previously summarized HPI, PMH, FH, SH, and ROS as docum ented in the detailed note of ESTHELA provider Wilian Apodaca. I also performed a history and physical examination of the patient myself and agree with th e documented findings and plan of care. 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 Subjective: No acute issues overnight. Right eye is somewhat more tender and mild pain with movement o f EOM. Oral cavity with persistence of stringy bloody secretions in posterior oropharynx, b ut no additional hemoptysis/hematemesis. Anxious to leave today. Objective: On exam, well appearing except injected right eye. No exudate. No hemorrhage. Bloody sec retions in posterior oropharynx. Heart regular without murmurs. Lungs clear throughout. A bdomen soft non-tender. Extremities without rash/petechiae. Brief assessment/plan: The major issues that I am directly managing that require continued hospital admission incl ude: AML - very high risk disease, transplant in PIF -day 30 marrow for disease reassessment -plan for initiation of hypomethylating agents on day 40 if engrafted Bleeding from oropharynx - unclear etiology - residual mucositis, normal coags -improving clinically, will not increase platelet threshold unless further bleeding -if rebleeds, will ask ENT for assistance to understand if there is a lesion/vessel that is exposed -not a candidate for oral amicar solution as bleeding in posterior oropharynx and below shabbir ttis. GVHD -tacrolimus/MTX, goal tacro 5-10 -close monitoring for GVHD in setting of MM transplant Cytopenias -transfuse with leukocyte reduced irradiated blood products for platelets <10, hct <21% or symptomatic FEN -replete electrolytes per protocol Disposition -will discharge today with f/u in outpt clinic tomorrow, pt knows to call if any interval i ssues. Today, we will continue the current level of support. Please refer to the ESTHELA's note dated today for additional details on the specific plan and orders for today. Yari Garcia MD, M.S. [facility] Attending physician s total time is 35 minutes, >50% spent counseling and coordination of care. Today, as part of my counseling and coordination of care, I reviewed data, reviewed today's plan, and discussed management of recurrent bleeding, follow up in clinic, timing of repeat marrow and post-transplant azacytidine. ######################################################### Vitals: Systolic (24hrs), Av mmHg, Min:129 mmHg, Max:146 mmHg Diastolic (24hrs), Av mmHg, Min:78 mmHg, Max:86 mmHg Pulse Av Min: 71 Max: 92 Temp Av.3 C (99.2 F) Min: 37.2 C (99 F) Max: 37.5 C (99.5 F) Resp Av.3 Min: 16 Max: 18 SpO2 Av % Min: 97 % Max: 99 % Intake/Output Summary (Last 24 hours) at 09/13/15 2215 Last data filed at 09/13/15 0800 Gross per 24 hour Intake 85 ml Output 1415 ml Net -1330 ml Current medications: No current facility-administered medications for this encounter. Allergies: Allergies Allergen Reactions Chlorhexidine Towelette Rash FAROOQ cloths - ok to use Chloraprep for dresssing change per pt. Laboratory or other studies: Recent Labs 09/10/15 2300 09/11/15 2313 09/12/15 2326 WBC 2.83* 5.46 9.27 HB 9.1* 8.5* 8.6* HCT 25.9* 24.4* 24.9* PLT 29* 34* 30* NEUTROPERC 62.8 78.6* 74.6* LYMPHPERC 17.7* 7.1* 9.6* MONOPERC 12.4* 8.0 11.4* BASOPERC 0.9 1.8 0.0 EOSPERC 0.0* 0.9* 0.9* Recent Labs 09/10/15 2300 09/11/15 2313 09/12/15 2326 NA 144 143 142 K 3.7 3.9 3.9 CL 113* 109* 109* BICARB 21 25 25 BUN 22* 19 18 CR 0.91 0.94 0.96 CA 8.1* 8.0* 8.3* MG 1.6* 1.8 1.4* PO4 3.3 2.9 3.4 AST 18 22 19 ALT 28 31 35 TBILI 0.5 0.5 0.4 AP 63 83 96 ALB 2.7* 2.9* 3.0* TP 5.8* 6.1* 6.1* URINE CULTURE [facility] (no units) Date Value 08/30/2015 No growth (<1000 cfu/mL) after 24 hours CULTURE RESULT (no units) Date Value 09/07/2015 Final Report:No Bacteria or Yeast isolated at 5 days. CULT, URINE SCREEN (no units) Date Value 07/02/2015 Positive* Lab Results Component Value Date APTT 33.7 09/12/2015 FIBRINOGEN 512* 09/12/2015 ook, Yari Jones MD - 0 09/12/2015 4:03 PM PST 09/12/2015 Hematologic Malignancies/Blood and marrow Transplant Attending Note I have reviewed and agree with the previously summarized HPI, PMH, FH, SH, and ROS as docum ented in the detailed note of [facility] provider Kary Tracey. I also performed a history and physical examination of the patient myself and agree with th freeman documented findings and plan of care. 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 Subjective: Doing ok today, though had a significant bleeding event from his oropharynx last night caus ing hemoptysis and hematemesis. Unclear exactly source, but continued for several minutes r esulting in significant discomfort and moderate blood loss. Received platelets at the time with minimal increase in platelet count. No further bleedin g episodes. Continues to improve slowly on po intake. No fevers/chills. Feeling stronger daily. Bowels are normal. Objective: On exam, well appearing, moving easily in bed. Oral cavity with bloody posterior oropharyn x without clear lesion. No visible abscess/exposed vessel. No vasile blood. Heart regular without murmurs. Lungs clear throughout. Abdomen soft, NT, ND. Extremties without swelling . Skin without rashes. Brief assessment/plan: The major issues that I am directly managing that require continued hospital admission incl ude: AML - very high risk disease, transplant in [facility] -day 30 marrow for disease reassessment -plan for initiation of hypomethylating agents on day 40 if engrafted Bleeding from oropharynx - unclear etiology - residual mucositis -if rebleeds, will ask ENT for assistance to understand if there is a lesion/vessel that is exposed -check coags and correct any underlying coagulopathy -not a candidate for oral amicar solution as bleeding in posterior oropharynx and below shabbir ttis. GVHD -tacrolimus/MTX, goal tacro 5-10 -close monitoring for GVHD in setting of MM transplant Cytopenias -transfuse with leukocyte reduced irradiated blood products for platelets <10, hct <21% or symptomatic FEN -replete electrolytes per protocol Disposition -possible d/c in next 24-48 hours if tolerating po Today, we will continue the current level of support. Please refer to the ESTHELA's note dated today for additional details on the specific plan and orders for today. [facility] Attending physician s total time is 35 minutes, >50% spent counseling and coordination of care. Today, as part of my counseling and coordination of care, I reviewed data, reviewed today's plan, and discussed rationale for remaining in the hospital for additional monitorin g while risk of bleeding remains high. [facility] DEPARTMENT: [id number] - [facility] Place of Service: - Inpatient Date of Service: 09/12/2015 Modifiers: None Suggested CPT: 69412 - Subsequent, Detailed/High complex 35 min ######################################################### Vitals: Systolic (24hrs), Av mmHg, Min:112 mmHg, Max:149 mmHg Diastolic (24hrs), Av mmHg, Min:62 mmHg, Max:91 mmHg Pulse Av.3 Min: 69 Max: 92 Temp Av.2 C (99 F) Min: 37.1 C (98.8 F) Max: 37.3 C (99.1 F) Resp Av.5 Min: 16 Max: 18 SpO2 Av.8 % Min: 97 % Max: 100 % Intake/Output Summary (Last 24 hours) at 09/12/15 1603 Last data filed at 09/12/15 1500 Gross per 24 hour Intake 2646 ml Output 3210 ml Net -564 ml Current medications: Current Facility-Administered Medications Medication Dose Route Frequency Last Rate acetaminophen (TYLENOL) tablet 650 mg 650 mg oral Q14D amLODIPine (NORVASC) tablet 5 mg 5 mg oral DAILY diphenhydrAMINE (BENADRYL) injection 25 mg 25 mg intravenous Q14D fluconazole (DIFLUCAN) tablet 400 mg 400 mg oral DAILY immune globulin (IGG) (GAMMAGARD LIQUID) IV 5% 15 g intravenous Q14D levofloxacin (LEVAQUIN) tablet 750 mg 750 mg oral DAILY OLANZapine (ZYPREXA ZYDIS) disintegrating tablet 5-10 mg 5-10 mg oral HS omeprazole (PRILOSEC) capsule 20 mg 20 mg oral BEFORE BREAKFAST sertraline (ZOLOFT) tablet 25 mg 25 mg oral DAILY tacrolimus (PROGRAF) capsule 2 mg 2 mg oral BID triamcinolone acetonide (KENALOG) 0.1 % cream topical BID ursodiol (ACTIGALL) capsule 300 mg 300 mg oral BID valACYclovir (VALTREX) tablet 500 mg 500 mg oral BID Allergies: Allergies Allergen Reactions Chlorhexidine Towelette Rash FAROOQ cloths - ok to use Chloraprep for dresssing change per pt. Laboratory or other studies: Recent Labs 09/10/15 0005 09/10/15 2300 09/11/15 2313 WBC 1.52* 2.83* 5.46 HB 8.7* 9.1* 8.5* HCT 24.3* 25.9* 24.4* PLT 44* 29* 34* NEUTROPERC 74.8* 62.8 78.6* LYMPHPERC 12.2* 17.7* 7.1* MONOPERC 12.1* 12.4* 8.0 BASOPERC 0.0 0.9 1.8 EOSPERC 0.9* 0.0* 0.9* Recent Labs 09/10/15 0005 09/10/15 2300 09/11/15 2313 NA 146* 144 143 K 4.7 3.7 3.9 CL 115* 113* 109* BICARB 22 21 25 BUN 26* 22* 19 CR 1.09 0.91 0.94 CA 8.2* 8.1* 8.0* MG 2.0 1.6* 1.8 PO4 2.8 3.3 2.9 AST 16 18 22 ALT 34 28 31 TBILI 0.4 0.5 0.5 AP 63 63 83 ALB 2.8* 2.7* 2.9* TP 6.1* 5.8* 6.1* URINE CULTURE [facility] (no units) Date Value 08/30/2015 No growth (<1000 cfu/mL) after 24 hours CULTURE RESULT (no units) Date Value 09/07/2015 No growth to date. CULT, URINE SCREEN (no units) Date Value 07/02/2015 Positive* Lab Results Component Value Date APTT 33.7 09/12/2015 FIBRINOGEN 512* 09/12/2015 Kary Francis PA - 09/12/2015 3:36 PM PST Daily NPP Note - [facility] Attending: Yari Garcia MD [facility] Physician: Yari Garcia MD PCP: Pending Pcp ADDITION Date of Admission: 08/18/2015 Conditioning regimen: tBuCy Date of transplant: 08/27/2015 (two day 0s) Donor: MM URD (DPB1 permissive antigen mismatch, male, [id number]) Reason for admission: tBuCy MMURD for refractory AML 24-Hr Events/Daily Plan: -Refractory AML: Day +16 tBuCy MM URD. -IST: tacrolimus + long-course MTX. Last 2 doses of MTX were followed by leucovorin rescu e due to mucositis. -Pancytopenia: WBC/ANC recovering; ANC up to 4000 today. Off neupogen. Standard transfusio n parameters, however received extra platelets last night night for bloody secretions from t hroat. -Hemoptysis: fresh blood seen in back of throat from mucositis. Ongoing, plan if this isn't improved by tomorrow to consult ENT for possible scope for bleeding vessel/erosion. -Mucositis: grade 2 (grade 3 at worst), still with ulcers posterior pharynx. 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 Increasing PO intake. 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 Improved on amlodipine. -Neutropenic Fever/Pneumonia: spiked first fever on 08/30/15, last fever 09/07/15. CT chest 09/07/15 - multifocal bacterial pneumonia. -Levaquin 750 mg PO through 09/12 per ID. Last dose tomorrow. -Rash: thought to be due to zosyn however unclear. Zosyn not added to allergy list at this time, rash resolved. -Lytes: standard replacement protocol. None today. -Conjunctivitis: left eye somewhat tender and injected, first noticed 09/11. No purulence/lucia ingage. No change in vision. -DC Dispo: anticipate discharge tomorrow. Subjective: Had some blood spit up after coughing yesterday. Left eye is a little tender. Food tastes bad and throat still hurting but can stay hydrated and eat soft foods. Objective: Last Vitals: BP 112/62 | Pulse 92 | Temp 37.2 C (99 F) | RR 18 | Ht 1.873 m (6' 1.75") | Wt 84.868 kg (187 lb 1.6 oz) | SpO2 99% | BMI 24.19 kg/(m^2) 24 Hour Vital Min/Max: Systolic (24hrs), Av mmHg, Min:112 mmHg, Max:149 mmHg Diastolic (24hrs), Av mmHg, Min:62 mmHg, Max:91 mmHg Pulse Min: 69 Max: 92 Temp Min: 37.1 C (98.8 F) Max: 37.5 C (99.5 F) Resp Min: 16 Max: 18 SpO2 Min: 97 % Max: 100 % Intake/Output Summary (Last 24 hours) at 09/12/15 1536 Last data filed at 09/12/15 1500 Gross per 24 hour Intake 2646 ml Output 3210 ml Net -564 ml Physical Exam: General: This is a male in no acute distress. Laying back in bed. HEENT: PERRL. Sclerae anicteric. Oral mucosa is pink and moist, ulcerations and bright r ed blood in posterior pharynx and uvula. Left eye mildly injected and tender to palpation. Skin: Scattered petechiae to BLE. Chest: Lungs clear to auscultation bilat. CV: RRR, no murmurs. Abdomen: S/NT/ND with NABS. No HSM appreciated. Extremities: Pulses strong and equal bilaterally. No c/c/e. Neuro: Alert and oriented x 3. Grossly nonfocal exam. CVC: LCW Trifusion in place w/o inflammation or induration. Dressing c/d/i Laboratory Results: Recent Labs 09/10/15409/10/15229909/11/15 2313 NA 146* 144 143 K 4.7 3.7 3.9 CL 115* 113* 109* BICARB 22 21 25 BUN 26* 22* 19 CR 1.09 0.91 0.94 GLU 131* 90 95 CA 8.2* 8.1* 8.0* AST 16 18 22 ALT 34 28 31 AP 63 63 83 TBILI 0.4 0.5 0.5 TP 6.1* 5.8* 6.1* ALB 2.8* 2.7* 2.9* Recent Labs 09/10/15409/10/15229909/11/15 2313 WBC 1.52* 2.83* 5.46 RBC 3.00* 3.11* 2.93* HB 8.7* 9.1* 8.5* HCT 24.3* 25.9* 24.4* PLT 44* 29* 34* NEUTROPERC 74.8* 62.8 78.6* LYMPHPERC 12.2* 17.7* 7.1* MONOPERC 12.1* 12.4* 8.0 BASOPERC 0.0 0.9 1.8 EOSPERC 0.9* 0.0* 0.9* Meds: Reviewed on rounds, see current MAR for medication list Past Medical History: Khurram Perezper is a 25 year old male admitted for initiation of pre-transplant conditioning with targeted busulfan and cytoxan prior to MM unrelated donor PBSCT for treatm ent of primary refractory AML. Treatment History: Khurram Kelly is a 25 y.o. [...] his L ankle. He was evaluated at [facility] ED on 06/[address] angiogram negative [...] leukemia. He was referred to [facility] for further evaluation and man agement of his newly dx'd AML. Pt was admitted to [facility] on 05/26/15. Peripheral blood was [...] CD34, variable CD56, variable CD117, and dim [id number] mickey; promonocyte immunophenotype (70% by flow): CD11b, [...] No recurrence of oral cavity/upper chest pain. Hospitalization History: Hematology: #Refractory AML Conditioning regimen: tBuCy -Busulfan 1 mg/kg/dose PO every 6 hours on days -7, -6, -5 and -4; he received clonazepam a nd levetiracetam as prophylaxis for busulfan-induced seizures. -Cyclophosphamide 60 mg/kg IV over 2 hours daily on days -3 and -2. With this, he will rece mickey mesna 60 mg/kg/day as a continuous infusion beginning just prior to the first dose of cy toxan and completing 24 hours after the second dose. Stem cell transplant -BMT Day: +16 -Tolerated MM (DPB1 permissive antigen mismatch) URD stem cell product on 08/26-08/27 (two d ay 0s) without complications. CD 34 count = 5.96 x 10 6 per kg #Anemia, thrombocytopenia -See supportive care #Supportive Care: Growth Factor: Began daily Neupogen dosing on Day +12 (09/07) and continue until ANC > 150 0 x 2 consecutive days. Labs: Continue to check CBC with diff daily Transfusion parameters: -Transfuse PRBCs for HCT <21% -Transfuse PPH for platelet count <10,000 (sooner if s/s mucosal bleeding/hematemesis) GVHD: Prophylaxis: Tacrolimus + Long-course Methotrexate -Tacrolimus IV BID beginning day -2 with levels biweekly and goal 5-10 -Methotrexate 15 mg/m IV on day +1, and 10 mg/m IV on days +3, +6 and +11. -Received all MTX doses in full. Leucovorin rescue after days +6 and +11 doses. Staging: Skin: Grade 0 Gut: Grade 0 Liver: Grade 0 Overall stage: 0 Pulmonary: Pretransplant PFTs completed on 08/09/2015 showed FEV1 of 99% predicted, FVC of 110% predicted and DLCO of 82% predicted. PNA: See ID section below, Cardiovascular: Pretransplant TTE completed on 08/10/2015 showed a LVEF of 55-60%. 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 Resolved. -Received Nexium IV and plt parameter 50K until resolved, then back to omeprazole and stand mary plt parameters. #CINV: now improved. Off scheduled meds. Was on scheduled Marinol, zofran, zyprexa. PRN ati van and phenergan. #Diarrhea: likely related to treatment as C diff negative on 08/31/25 & #Mucositis: grade 2 (grade 3 at worst), now healing with count recovery. Received dilaudid AUTOMATIC DRY STARCH OPERATOR until 09/10. -Received Leucovorin rescue after MTX doses Renal: #VIKI: with rise in sCr to 1.35 noted on 09/07/15, most likely from supratherapeutic Vancomyci n level in setting concurrent CNI. sCr wnl with holding of Tacrolimus, stopping of Vancomyc in, and NS 500mL bolus x1. 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 Blood cultures wi th NGTD. RVP 09/06/15 - negative. CT chest 09/07/15 - Tree in bud nodularity within the machine setter and repairer ior basal RLL, medial RML and posterior RUL most consistent with multifocal bacterial pneumo indu. -ID consulted for assistance with management given recurrent neutropenic fevers -Pulmonary consulted: re-evaluation of chest imaging most consistent with aspiration, bron choscopy NOT warranted -Cefepime (08/30-09/03), switched to Zosyn for persistent fevers -Zosyn (09/03-), switched to Cefepime + Flagyl combination due to interaction of PCN wit h Methotrexate -Cefepime ( -09/09 ), stopped with count recovery. -Levaquin 750 mg PO x through 09/12 to finish course per ID -Flagyl (-09/07) #R Neck Trifusion Infection: s/p CVC removal on 08/22, site less tender and erythematous. R eplaced Trifusion on prior to PBSCT -Vancomycin (08/21-09/06), recommended through 08/31 per ID but continued past this date due to persistent fevers #Prophylaxis: Bacterial: Abx as above Fungal: Fluconazole started day 0 Viral: Valacyclovir started day +1; switched to Acyclovir IV d/t mucositis, upon discharge will need oral therapy. PCP: Bactrim day of admission through day -1 then received Pentamidine prior to discharge o n 09/11. #Routine infectious disease testing -CMV by PCR weekly, starting after day 0. (Pt and donor CMV+) Lab Results Component Value Date CMVQUANTPCR Undetected 09/05/2015 CMVQUANTPCR Undetected 08/29/2015 CMVQUANTPCR Undetected 08/22/2015 CMVQUANTPCR Undetected 08/09/2015 -Asp. Galactomannan weekly, starting after day 0. Lab Results Component Value Date GALACTO Negative 09/05/2015 -IgG every other week and repleted if falls <300 Lab Results Component Value Date IGG 526* 09/04/2015 Fluid/Nutrition/Lytes: #Nutrition: Low bacteria diet, TPN added 09/03 with decreased PO intake and worsening mucosi tis. Stopped 09/09 with healing mucositis. #Fluid: NS boluses PRN elevated sCr #Lytes: Continue to check chemistries daily. Replace per supportive care protocol. Disposition: Pt with AML, adm for BuCy MMURD PBSCT. Anticipate DC tomorrow or Sunday. [facility] [address] [place] [address] Mailcode: [id number] [place] [id number] Yari Moore MD - 09/11/2015 6:32 PM PST 09/11/2015 Hematologic Malignancies/Blood and marrow Transplant Attending Note I have reviewed and agree with the previously summarized HPI, PMH, FH, SH, and ROS as docum ented in the detailed note of [facility] provider Kary Tracey. I also performed a history and physical examination of the patient myself and agree with th freeman documented findings and plan of care. 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 Subjective: Overall the patients is doing well. Improving tolerance of po though nothing tastes good. Feels ready to switch all pills to po. Active, walking. Nausea manageable. No diarrhea. No rashes. Still with resolving mucositis/mild dysphagia. Objective: On exam, non-toxic. Oral cavity with bloody secretions/wet purpura in posterior oropharynx . Heart is regular without murmurs. LUngs clear. Abdomen soft. Skin without lesions. Brief assessment/plan: The major issues that I am directly managing that require continued hospital admission incl ude: AML - very high risk disease, transplant in [facility] -day 30 marrow for disease reassessment -plan for initiation of hypomethylating agents on day 40 if engrafted GVHD -tacrolimus/MTX, goal tacro 5-10 -close monitoring for GVHD in setting of MM tx Cytopenias -transfuse with leukocyte reduced irradiated blood products for platelets <10, hct <21% or symptomatic FEN -replete electrolytes per protocol Disposition -possible d/c in next 24-48 hours if tolerating po Today, we will continue the current level of support. Please refer to the ESTHELA's note dated today for additional details on the specific plan and orders for today. Yari Garcia MD, M.S. [facility] Attending physician s total time is 35 minutes, >50% spent counseling and coordination of care. Today, as part of my counseling and coordination of care, I reviewed data, reviewed today's plan, and discussed possible discharge, follow up plans. [facility] DEPARTMENT: [id number] - [facility] Place of Service: - Inpatient Date of Service: 09/11/2015 Modifiers: None Suggested CPT: 74167 - Subsequent, Detailed/High complex 35 min ######################################################### Vitals: Systolic (24hrs), Av mmHg, Min:133 mmHg, Max:144 mmHg Diastolic (24hrs), Av mmHg, Min:78 mmHg, Max:88 mmHg Pulse Av.8 Min: 71 Max: 81 Temp Av.3 C (99.1 F) Min: 37.1 C (98.8 F) Max: 37.5 C (99.5 F) Resp Av.6 Min: 16 Max: 18 SpO2 Av.4 % Min: 97 % Max: 99 % Intake/Output Summary (Last 24 hours) at 09/11/15 1832 Last data filed at 09/11/15 1750 Gross per 24 hour Intake 2315 ml Output 1900 ml Net 415 ml Current medications: Current Facility-Administered Medications Medication Dose Route Frequency Last Rate acetaminophen (TYLENOL) tablet 650 mg 650 mg oral Q14D amLODIPine (NORVASC) tablet 5 mg 5 mg oral DAILY diphenhydrAMINE (BENADRYL) injection 25 mg 25 mg intravenous Q14D filgrastim (NEUPOGEN) injection 480 mcg 5 mcg/kg (Treatment Plan Actual) subcutaneous QPM AT 1700 fluconazole (DIFLUCAN) tablet 400 mg 400 mg oral DAILY immune globulin (IGG) (GAMMAGARD LIQUID) IV 5% 15 g intravenous Q14D levofloxacin (LEVAQUIN) tablet 750 mg 750 mg oral DAILY OLANZapine (ZYPREXA ZYDIS) disintegrating tablet 5-10 mg 5-10 mg oral HS [START ON 09/12/2015] omeprazole (PRILOSEC) capsule 20 mg 20 mg oral BEFORE BREAKFAST [START ON 09/20/2015] pentamidine (PENTAM) IV 300 mg 300 mg intravenous ONE TIME DURING VISIT sertraline (ZOLOFT) tablet 25 mg 25 mg oral DAILY tacrolimus (PROGRAF) capsule 2 mg 2 mg oral BID triamcinolone acetonide (KENALOG) 0.1 % cream topical BID ursodiol (ACTIGALL) capsule 300 mg 300 mg oral BID valACYclovir (VALTREX) tablet 500 mg 500 mg oral BID Allergies: Allergies Allergen Reactions Chlorhexidine Towelette Rash FAROOQ cloths - ok to use Chloraprep for dresssing change per pt. Laboratory or other studies: Recent Labs 09/08/15 2346 09/09/15 1415 09/10/15 0005 09/10/15 2300 WBC 0.62* -- 1.52* 2.83* HB 9.2* -- 8.7* 9.1* HCT 25.3* -- 24.3* 25.9* PLT 32* 33* 44* 29* NEUTROPERC 72.7* -- 74.8* 62.8 LYMPHPERC 13.7* -- 12.2* 17.7* MONOPERC 13.6* -- 12.1* 12.4* BASOPERC 0.0 -- 0.0 0.9 EOSPERC 0.0* -- 0.9* 0.0* Recent Labs 09/08/15 2346 09/10/15 0005 09/10/15 2300 NA 143 146* 144 K 4.4 4.7 3.7 CL 114* 115* 113* BICARB 21 22 21 BUN 23* 26* 22* CR 1.16 1.09 0.91 CA 8.5* 8.2* 8.1* MG 1.6* 2.0 1.6* PO4 3.2 2.8 3.3 AST 11 16 18 ALT 18 34 28 TBILI 0.6 0.4 0.5 AP 61 63 63 ALB 2.9* 2.8* 2.7* TP 6.2* 6.1* 5.8* URINE CULTURE [facility] (no units) Date Value 08/30/2015 No growth (<1000 cfu/mL) after 24 hours CULTURE RESULT (no units) Date Value 09/07/2015 No growth to date. CULT, URINE SCREEN (no units) Date Value 07/02/2015 Positive* Lab Results Component Value Date APTT 40.0* 09/07/2015 FIBRINOGEN 582* 09/07/2015 urKary thao PA - 09/11/2015 4:38 PM PST Daily NPP Note - Transplant Admit [facility] Attending: Lobo Rizzo MD [facility] Physician: Yari Garcia MD PCP: Pending Pcp ADDITION Date of Admission: 08/18/2015 Conditioning regimen: tBuCy Date of transplant: 08/27/2015 (two day 0s) Donor: MM URD (DPB1 permissive antigen mismatch, male, [id number]) Reason for admission: tBuCy MMURD for refractory AML 24-Hr Events/Daily Plan: -Refractory AML: Day +15 tBuCy MM URD. -IST: tacrolimus + long-course MTX. Last 2 doses of MTX were followed by leucovorin rescu e due to mucositis. -Pancytopenia: WBC/ANC recovering; ANC up to 1780 today. Standard transfusion parameters. None needed today. -Hematemesis: on 09/08/15, likely from swallowed blood associated with chemotherapy-induced m ucositis. Transition from IV nexium to oral omeprazole tomorrow. -Mucositis: grade 2 (grade 3 at worst), still with ulcers posterior pharynx. Continue frequ ent oral care, stop AUTOMATIC DRY STARCH OPERATOR today and transition to oral oxycodone. 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 Continue amlodipine. -Neutropenic Fever/Pneumonia: spiked first fever on 08/30/15, last fever 09/07/15. CT chest 09/07/15 - Tree in bud nodularity within the posterior basal right lower lobe, medial right midd le lobe and posterior right upper lobe most consistent with multifocal bacterial pneumonia. -Levaquin 750 mg PO through 09/12 per ID. -CINV: now resolved. Stopped scopolamine patch. Continues scheduled Zyprexa. -Nutrition: increasing PO intake. -Rash: thought to be due to zosyn however unclear. Zosyn not added to allergy list at this time, rash resolved. -Lytes: standard replacement protocol. There are no electrolyte replacements required at th is time. -DC Dispo: anticipate discharge on Sunday or Sunday pending counts continue to recover, pt remains afebrile, and mucositis has head with subsequent increase in PO intake. Subjective: Throat feeling better. No further nausea. Objective: Last Vitals: BP 135/78 | Pulse 78 | Temp 37.5 C (99.5 F) | RR 18 | Ht 1.873 m (6' 1.75" ) | Wt 84.868 kg (187 lb 1.6 oz) | SpO2 99% | BMI 24.19 kg/(m^2) 24 Hour Vital Min/Max: Systolic (24hrs), Av mmHg, Min:133 mmHg, Max:144 mmHg Diastolic (24hrs), Av mmHg, Min:78 mmHg, Max:88 mmHg Pulse Min: 71 Max: 81 Temp Min: 36.9 C (98.4 F) Max: 37.5 C (99.5 F) Resp Min: 16 Max: 18 SpO2 Min: 97 % Max: 99 % Intake/Output Summary (Last 24 hours) at 09/11/15 1638 Last data filed at 09/11/15 1500 Gross per 24 hour Intake 2615 ml Output 2325 ml Net 290 ml Physical Exam: General: This is a male in no acute distress. Sitting up at side of bed. HEENT: PERRL. Sclerae anicteric. Oral mucosa is pink and moist with ulcerations on poste rior pharynx. Skin: Scattered petechiae to BLE. Chest: Lungs clear to auscultation bilat. CV: RRR, no murmurs. Abdomen: S/NT/ND with NABS. No HSM appreciated. Extremities: Pulses strong and equal bilaterally. No c/c/e. Neuro: Alert and oriented x 3. Grossly nonfocal exam. CVC: LCW Trifusion in place w/o inflammation or induration. Dressing c/d/i Laboratory Results: Recent Labs 09/08/15 2346 09/10/15 0005 09/10/15 2300 NA 143 146* 144 K 4.4 4.7 3.7 CL 114* 115* 113* BICARB 21 22 21 BUN 23* 26* 22* CR 1.16 1.09 0.91 GLU 127* 131* 90 CA 8.5* 8.2* 8.1* AST 11 16 18 ALT 18 34 28 AP 61 63 63 TBILI 0.6 0.4 0.5 TP 6.2* 6.1* 5.8* ALB 2.9* 2.8* 2.7* Recent Labs 09/08/15 2346 09/09/15 1415 09/10/15 0005 09/10/15 2300 WBC 0.62* -- 1.52* 2.83* RBC 3.13* -- 3.00* 3.11* HB 9.2* -- 8.7* 9.1* HCT 25.3* -- 24.3* 25.9* PLT 32* 33* 44* 29* NEUTROPERC 72.7* -- 74.8* 62.8 LYMPHPERC 13.7* -- 12.2* 17.7* MONOPERC 13.6* -- 12.1* 12.4* BASOPERC 0.0 -- 0.0 0.9 EOSPERC 0.0* -- 0.9* 0.0* Meds: Reviewed on rounds, see current MAR for medication list Past Medical History: Khurram Diamond Leticia is a 25 year old male admitted for initiation of pre-transplant conditioning with targeted busulfan and cytoxan prior to MM unrelated donor PBSCT for treatm ent of primary refractory AML. Treatment History: Khurram Kelly is a 25 y.o. [...] his L ankle. He was evaluated at [facility] ED on 06/[address] angiogram negative [...] leukemia. He was referred to [facility] for further evaluation and man agement of his newly dx'd AML. Pt was admitted to [facility] on 05/26/15. Peripheral blood was [...] CD34, variable CD56, variable CD117, and dim [id number]-hucol mickey; promonocyte immunophenotype (70% by flow): CD11b, [...] No recurrence of oral cavity/upper chest pain. Hospitalization History: Hematology: #Refractory AML Conditioning regimen: tBuCy -Busulfan 1 mg/kg/dose PO every 6 hours on days -7, -6, -5 and -4; he received clonazepam a nd levetiracetam as prophylaxis for busulfan-induced seizures. -Cyclophosphamide 60 mg/kg IV over 2 hours daily on days -3 and -2. With this, he will rece mickey mesna 60 mg/kg/day as a continuous infusion beginning just prior to the first dose of cy toxan and completing 24 hours after the second dose. Stem cell transplant -BMT Day: +15 -Tolerated MM (DPB1 permissive antigen mismatch) URD stem cell product on 08/26-08/27 (two d ay 0s) without complications. CD 34 count = 5.96 x 10 6 per kg #Pancytopenia: d/t disease and chemo -Antimicrobials as below -See supportive care #Supportive Care: Growth Factor: Began daily Neupogen dosing on Day +12 (09/07) and continue until ANC > 150 0 x 2 consecutive days. Labs: Continue to check CBC with diff daily Transfusion parameters: -Transfuse PRBCs for HCT <21% -Transfuse PPH for platelet count <50,000 (due to mucosal bleeding/hematemesis) or sooner for s/s active bleeding GVHD: Prophylaxis: Tacrolimus + Long-course Methotrexate -Tacrolimus IV BID beginning day -2 with levels biweekly and goal 5-10 -Methotrexate 15 mg/m IV on day +1, and 10 mg/m IV on days +3, +6 and +11. -Received all MTX doses in full. Leucovorin rescue after days +6 and +11 doses. -No steroids will be used unless develops GvHD. Staging: Skin: Grade 0 Gut: Grade 0 Liver: Grade 0 Overall stage: 0 Pulmonary: Pretransplant PFTs completed on 08/09/2015 showed FEV1 of 99% predicted, FVC of 110% predicted and DLCO of 82% predicted. See ID section below for PNA Cardiovascular: Pretransplant TTE completed on 08/10/2015 showed a LVEF of 55-60%. 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 Resolved. -Received Nexium IV and plt parameter 50K until healed, then back to omeprazole and standar d plt parameters. #CINV: now improved. Off scheduled meds. Was on scheduled Marinol, zofran, zyprexa. PRN ati van and phenergan. #Diarrhea: likely related to treatment as C diff negative on 08/31/25 & #Mucositis: grade 2 (grade 3 at worst), now healing with count recovery. Received dilaudid AUTOMATIC DRY STARCH OPERATOR until 09/10. -Received Leucovorin rescue after MTX doses Renal: #VIKI: with rise in sCr to 1.35 noted on 09/07/15, most likely from supratherapeutic Vancomyci n level in setting concurrent CNI. sCr now on the downward trend with holding of Tacrolimus , stopping of Vancomycin, and NS 500mL bolus x1. 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 Blood cultures wi th NGTD. RVP 09/06/15 - negative. CT chest 09/07/15 - Tree in bud nodularity within the machine setter and repairer ior basal right lower lobe, medial right middle lobe and posterior right upper lobe most con sistent with multifocal bacterial pneumonia. -ID consulted for assistance with management given recurrent neutropenic fevers -Pulmonary consulted: re-evaluation of chest imaging most consistent with aspiration, bron choscopy NOT warranted -Cefepime (08/30-09/03), switched to Zosyn for persistent fevers -Zosyn (09/03-), switched to Cefepime + Flagyl combination due to interaction of PCN wit h Methotrexate -Cefepime ( -09/09 ), stopped with count recovery. -Levaquin 750 mg PO x through 09/12 to finish course per ID -Flagyl (-09/07) #R Neck Trifusion Infection: s/p CVC removal on 08/22, site less tender and erythematous. R eplaced Trifusion on prior to PBSCT -Vancomycin (08/21-09/06), recommended through 08/31 per ID but continued past this date due to persistent fevers #Prophylaxis: Bacterial: Abx as above Fungal: Fluconazole started day 0 Viral: Valacyclovir started day +1; switched to Acyclovir IV d/t mucositis, upon discharge will need oral therapy. PCP: Bactrim day of admission through day -1 then Pentamidine prior to discharge #Routine infectious disease testing -CMV by PCR weekly, starting after day 0. (Pt and donor CMV+) Lab Results Component Value Date CMVQUANTPCR Undetected 09/05/2015 CMVQUANTPCR Undetected 08/29/2015 CMVQUANTPCR Undetected 08/22/2015 CMVQUANTPCR Undetected 08/09/2015 -Asp. Galactomannan weekly, starting after day 0. Lab Results Component Value Date GALACTO Negative 09/05/2015 -IgG every other week and repleted if falls <300 Lab Results Component Value Date IGG 526* 09/04/2015 Fluid/Nutrition/Lytes: #Nutrition: Low bacteria diet, TPN added 09/03 with decreased PO intake and worsening mucosi tis. Stopped 09/09 with healing mucositis. #Fluid: NS boluses PRN elevated sCr #Lytes: Continue to check chemistries daily. Replace per supportive care protocol. Disposition: Pt with AML, adm for BuCy MMURD PBSCT. Anticipate 3-4 week hospitalization. [facility] [address] [place] [address] Mailcode: [email or web address] [place] [id number] Abdiel Goins MD - 09/10/2015 7:31 PM PSTFormatting of this note might be different from the adri lAna Hematologic Malignancies/Bone Marrow Transplant Inpatient Attending Progress Note: Hospital course summary: Patient hospitalized with IV TPN, IV immunosuppression, IV pain medications, IV antibiotics Skin rash with platelet transfusion, Mouth pain, somewhat better with rise in neutrophils. He does not notice rash Still unable to take orals, except some clear liquids I rounded today,09/10/2015, in conjunction with Robert ANDREWS,the Advanced Practice Provide kimi Parisi saw the patient, reviewed the history and relevant studies and developed an assessment an d plan. Subjective/Objective: Last Vitals: BP 142/83 | Pulse 75 | Temp 36.9 C (98.4 F) | RR 18 | Ht 1.873 m (6' 1.75" ) | Wt 84.868 kg (187 lb 1.6 oz) | SpO2 98% | BMI 24.19 kg/(m^2) 24 Hour Vital Min/Max: Systolic (24hrs), Av mmHg, Min:122 mmHg, Max:146 mmHg Diastolic (24hrs), Av mmHg, Min:74 mmHg, Max:88 mmHg Pulse Min: 59 Max: 87 Temp Min: 36.7 C (98.1 F) Max: 37.3 C (99.1 F) Resp Min: 16 Max: 18 SpO2 Min: 96 % Max: 100 % Intake/Output Summary (Last 24 hours) at 09/10/15 1933 Last data filed at 09/10/15 1832 Gross per 24 hour Intake 5428.6 ml Output 8250 ml Net -2821.4 ml Head no discomfort over sinuses Oral mucositis-has some evidence of granulation Neck supple Lungs clear Heart rrr s1s2 Abdomen soft nontender, no organomegaly Skin mild hyperpigmented with faint erythematous Neuro normal gait, strength 5/5 Results for KHURRAM KELLY ( ) as of 09/10/2015 19:34 Ref. Range 09/10/2015 00:05 09/10/2015 02:28 SODIUM, PLASMA (LAB) Latest Ref Range: 136-145 mmol/L 146 (H) POTASSIUM, PLASMA (LAB) Latest Ref Range: 3.4-5.0 mmol/L 4.7 POTASSIUM CMNT Unknown No Hemo CHLORIDE, PLASMA (LAB) Latest Ref Range: 97-108 mmol/L 115 (H) TOTAL CO2, PLASMA (LAB) Latest Ref Range: 21-32 mmol/L 22 ANION GAP Latest Units: mmol/L 9 ANION GAP(ALB CORRECTED) Latest Ref Range: 4-11 mmol/L 12 (H) BUN, PLASMA (LAB) Latest Ref Range: 6-20 mg/dL 26 (H) CREATININE PLASMA (LAB) Latest Ref Range: 0.70-1.30 mg/dL 1.09 EGFR - MEXICAN Latest Ref Range: >60 mL/min >60 EGFR NON -MEXICAN Latest Ref Range: >60 mL/min >60 GLUCOSE, PLASMA (LAB) Latest Ref Range: 60-99 mg/dL 131 (H) CALCIUM, PLASMA (LAB) Latest Ref Range: 8.6-10.2 mg/dL 8.2 (L) MAGNESIUM,PLASMA Latest Ref Range: 1.8-2.5 mg/dL 2.0 PHOSPHORUS, PLASMA (LAB) Latest Ref Range: 2.4-4.7 mg/dL 2.8 AST(SGOT) Latest Ref Range: <=41 U/L 16 AST CMNT Unknown No Hemo ALT (SGPT) Latest Ref Range: <=60 U/L 34 ALK PHOS Latest Ref Range: 53-128 U/L 63 BILIRUBIN TOTAL Latest Ref Range: 0.3-1.2 mg/dL 0.4 BILI T CMNT Unknown No Hemo TOTAL PROTEIN, PLASMA (LAB) Latest Ref Range: 6.4-8.2 g/dL 6.1 (L) ALBUMIN, PLASMA (LAB) Latest Ref Range: 3.5-4.7 g/dL 2.8 (L) TACROLIMUS (FK 506) Latest Ref Range: 5.0-15.0 ng/mL 7.2 WHITE CELL COUNT Latest Ref Range: 4.40-11.00 K/cu mm 1.52 (L) RED CELL COUNT Latest Ref Range: 4.50-6.00 M/cu mm 3.00 (L) HEMOGLOBIN Latest Ref Range: 13.5-17.5 g/dL 8.7 (L) HEMATOCRIT Latest Ref Range: 41.0-53.0 % 24.3 (L) MCV Latest Ref Range: 80.0-96.0 fL 81.0 MCHC Latest Ref Range: 33.0-35.5 g/dL 35.8 RDW SD Latest Ref Range: 35.1-46.3 fL 38.9 PLATELET COUNT Latest Ref Range: 150-400 K/cu mm 44 (L) MPV Latest Ref Range: 9.7-12.3 fL 10.5 NRBC% Latest Ref Range: 0.0-0.3 % 2.0 (H) NRBC# Latest Ref Range: 0.00-0.02 K/cu mm 0.03 (H) NEUTROPHIL % Latest Ref Range: 50.0-70.0 % 74.8 (H) LYMPHOCYTE % Latest Ref Range: 18.0-42.0 % 12.2 (L) MONOCYTE % Latest Ref Range: 3.5-9.0 % 12.1 (H) EOS % Latest Ref Range: 1.0-3.0 % 0.9 (L) BASO % Latest Ref Range: 0.0-2.0 % 0.0 IMMATURE GRANULOCYTE% Latest Ref Range: 0.0-0.6 % 0.0 NEUTROPHIL # Latest Ref Range: 1.80-7.70 K/cu mm 1.14 (L) LYMPHOCYTE # Latest Ref Range: 1.00-4.80 K/cu mm 0.19 (L) MONOCYTE # Latest Ref Range: 0.10-0.90 K/cu mm 0.18 EOS # Latest Ref Range: 0.00-0.50 K/cu mm 0.01 BASO # Latest Ref Range: 0.00-0.10 K/cu mm 0.00 IMMATURE GRANULOCYTE# Latest Ref Range: 0.00-0.03 K/cu mm 0.00 SCHISTOCYTES Unknown 1+ (<1-2cells/HPF) PRODUCT DESCRIPTION Unknown PLATELETS PHERESI... PRODUCT UNIT # Unknown [id number] UNIT ABO Unknown A UNIT RH Unknown POS STATUS OF UNIT Unknown Available for Issue EXPIRATION DATE Unknown [id number] BLOOD TYPE BARCODE Unknown 6200 Please see the Advanced Practice Provider documentation from today for the details regardin g the assessment and plan. Patients Hospital Problem List: Active Hospital Problems 1) *Acute myeloid leukemia (AML), M4 (HCC)- primary induction failure 2) Electrolyte abnormality 3) 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) 7) 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HCC) 9) CINV (chemotherapy-induced nausea and vomiting) 10) Cellulitis 11) Pancytopenia due to chemotherapy (HCC) 12) Neutropenic fever (HCC) 13) Mucositis due to chemotherapy 14) On total parenteral nutrition (TPN) 15) Hypoalbuminemia due to protein-calorie malnutrition (HCC) 16) Hypomagnesemia 17) Nasal congestion 18) Skin rash Resolved Hospital Problems 19) Dehydration Current Facility-Administered Medications Medication Dose Route Frequency acetaminophen (TYLENOL) tablet 325-650 mg 325-650 mg oral Q4H PRN acetaminophen (TYLENOL) tablet 650 mg 650 mg oral Q14D ALPRAZolam (XANAX) tablet 1 mg 1 mg oral TID PRN alteplase (CATHFLO ACTIVASE) injection 2 mg 2 mg Intracatheter PRN aluminum-magnesium hydroxide-simethicone (MAALOX; MYLANTA) 200-200-20 mg/5 mL suspensio n 30 mL 30 mL oral Q3H PRN amLODIPine (NORVASC) tablet 5 mg 5 mg oral DAILY baclofen (LIORESAL) tablet 10 mg 10 mg oral TID PRN calamine lotion topical PRN diphenhydrAMINE (BENADRYL) capsule 25-50 mg 25-50 mg oral Q6H PRN diphenhydrAMINE (BENADRYL) injection 25 mg 25 mg intravenous Q14D diphenhydrAMINE (BENADRYL) injection 25-50 mg 25-50 mg intravenous Q4H PRN [id number]-axmhirhyi-YRREBV (SPECIAL MOUTHWASH) suspension (compound) 10-15 mL 10 -15 mL oral Q1H PRN dronabinol (MARINOL) capsule 5 mg 5 mg oral BID AC esomeprazole (NEXIUM) IV 40 mg 40 mg intravenous DAILY fat emulsion (INTRALIPID) 20 % IV infusion 51 g 51 g intravenous TPN 2100 And parenteral nutrition (adult) intravenous TPN 2100 filgrastim (NEUPOGEN) injection 480 mcg 5 mcg/kg (Treatment Plan Actual) subcutaneous QPM AT 1700 fluconazole (DIFLUCAN) tablet 400 mg 400 mg oral DAILY glycerin-mineral oil (LUBRIDERM SENSITIVE LANOLIN FREE) lotion topical Q2H PRN heparin 10 unit/mL IV flush syringe 50 Units 50 Units intravenous PRN hydrocortisone sodium succinate (PF) (SOLU-CORTEF) injection 50 mg 50 mg intravenous P RN HYDROmorphone 25 mg in preservative free NaCl 0.9% 50 mL AUTOMATIC DRY STARCH OPERATOR infusion intravenous CON TINUOUS immune globulin (IGG) (GAMMAGARD LIQUID) IV 5% 15 g intravenous Q14D lactulose (ENULAC) liquid 10-20 g 15-30 mL oral TID PRN levofloxacin (LEVAQUIN) tablet 750 mg 750 mg oral DAILY loperamide (IMODIUM) capsule 2-4 mg 2-4 mg oral PRN LORazepam (ATIVAN) injection 0.5 mg 0.5 mg intravenous Q6H PRN Or LORazepam (ATIVAN) tablet 0.5 mg 0.5 mg oral Q6H PRN magnesium hydroxide (MILK OF MAGNESIA) suspension 30 mL 30 mL oral Q6H PRN magnesium sulfate in water IV (RTU) 4 g 4 g intravenous PRN magnesium sulfate IV 8 g 8 g intravenous PRN menthol-zinc oxide (CALAZIME) topical paste topical BID PRN nalOXone (NARCAN) injection intravenous PRN nystatin-zinc oxide-lidocaine (NDX) ointment (compound) topical Q1H PRN OLANZapine (ZYPREXA ZYDIS) disintegrating tablet 5-10 mg 5-10 mg oral HS ondansetron (ZOFRAN) injection 4 mg 4 mg intravenous BID [START ON 09/20/2015] pentamidine (PENTAM) IV 300 mg 300 mg intravenous ONE TIME DURING VISIT polyethylene glycol (MIRALAX) powder 17 g 17 g oral DAILY PRN potassium chloride IV (central line) 40 mEq 40 mEq intravenous PRN And potassium chloride IV (central line) 60 mEq 60 mEq intravenous PRN potassium chloride SR (K-DUR) tablet 40 mEq 40 mEq oral PRN potassium phosphate IV 30 mmol 30 mmol intravenous PRN And potassium phosphate IV 40 mmol 40 mmol intravenous PRN promethazine (PHENERGAN) injection 12.5-25 mg 12.5-25 mg intravenous Q6H PRN Or promethazine (PHENERGAN) tablet 12.5-25 mg 12.5-25 mg oral Q6H PRN ramelteon (ROZEREM) tablet 8 mg 8 mg oral HS PRN saliva substitute (MOUTH KOTE) spray 1 spray 1 spray oral Q1H PRN senna-docusate (SENOKOT S) 8.6-50 mg 1-2 tablet 1-2 tablet oral Q12H PRN sertraline (ZOLOFT) tablet 25 mg 25 mg oral DAILY sodium chloride (OCEAN) 0.65 % nasal spray 1 spray 1 spray nasal Q1H PRN sodium phosphate IV 30 mmol 30 mmol intravenous PRN sodium phosphate IV 40 mmol 40 mmol intravenous PRN tacrolimus (PROGRAF) capsule 2 mg 2 mg oral BID tacrolimus IV continuous infusion (100 mL dilution) 1.8 mg intravenous Q24H triamcinolone acetonide (KENALOG) 0.1 % cream topical BID ursodiol (ACTIGALL) capsule 300 mg 300 mg oral BID valACYclovir (VALTREX) tablet 500 mg 500 mg oral BID I am unconvinced skin biopsy is gvhd. While there were no eosinophils to support drug rash , the absence of eosinophils in a pancytopenic patient does not exclude drug rash. I think t he rash is undecipherable in etiology but I favor drug rash to zosyn as that fits time cours e. Now that we are having platelet wbc reaction requiring steroids, the rash will never have a resolution as to etiology. I would not treat as ghvd given relapse status. Platelet reaction. Premed with steroids but I worry about ablation of gvl effect and wonder if saline wash platelets preferable. Have asked blood bank. Mucositis on IV hydration and IV tpn-perhaps improving with anc recovery but given severity of bleed, keep hct>.24% and platelets>50K gvhd on IV tacro mtx Neutropenic fever on cefepime given mtx-recurrent consult ID, chest ct-aspiration pneumoni a. 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 Daily NPP Note - [facility] Attending: Lobo Rizzo MD [facility] Physician: Yari Garcia MD PCP: Pending Pcp ADDITION Date of Admission: 08/18/2015 Conditioning regimen: tBuCy Date of transplant: 08/27/2015 (two day 0s) Donor: MM URD (DPB1 permissive antigen mismatch, male, [id number]) Reason for admission: tBuCy MMURD for refractory AML 24-Hr Events/Daily Plan: -Refractory AML: Day +14 tBuCy MM URD. -IST: tacrolimus + long-course MTX. Last 2 doses of MTX were followed by leucovorin rescu e due to mucositis. -Pancytopenia: WBC/ANC recovering; ANC up to 1140 today. Standard transfusion parameters. None needed today. -Hematemesis: on 09/08/15, likely from swallowed blood associated with chemotherapy-induced m ucositis. Continue nexium IV for now, transition back to oral omeprazole tomorrow. -Mucositis: grade 2 (grade 3 at worst), still with ulcers posterior pharynx. Continue frequ ent oral care, weaning AUTOMATIC DRY STARCH OPERATOR today with improved pain. 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 Continue amlodipine and follow. -Neutropenic Fever/Pneumonia: spiked first fever on 08/30/15, last fever 09/07/15. CT chest 09/07/15 - Tree in bud nodularity within the posterior basal right lower lobe, medial right midd le lobe and posterior right upper lobe most consistent with multifocal bacterial pneumonia. -Stop Cefepime today then transition to Levaquin 750 mg PO through 09/12 per ID -CINV: now resolved. Stopped scopolamine patch. Continues scheduled Zofran, Marinol and Z yprexa. -Nutrition: a fruit cup yesterday with 2L of PO fluid intake documented. -DC Dispo: anticipate discharge on Sunday or Sunday pending counts continue to recover, pt remains afebrile, and mucositis has head with subsequent increase in PO intake -Rash: thought to be due to zosyn however unclear. Zosyn not added to allergy list at this time, rash resolved. -Lytes: standard replacement protocol. There are no electrolyte replacements required at t his time. Subjective: Continues to feel better with each passing day. Mouth has almost completely h ealed. Nausea is gone. Objective: Last Vitals: BP 142/83 | Pulse 75 | Temp 36.9 C (98.4 F) | RR 18 | Ht 1.873 m (6' 1.75" ) | Wt 84.868 kg (187 lb 1.6 oz) | SpO2 98% | BMI 24.19 kg/(m^2) 24 Hour Vital Min/Max: Systolic (24hrs), Av mmHg, Min:122 mmHg, Max:146 mmHg Diastolic (24hrs), Av mmHg, Min:71 mmHg, Max:88 mmHg Pulse Min: 59 Max: 87 Temp Min: 36.7 C (98.1 F) Max: 37.5 C (99.5 F) Resp Min: 16 Max: 18 SpO2 Min: 95 % Max: 100 % Intake/Output Summary (Last 24 hours) at 09/10/15 1835 Last data filed at 09/10/15 1832 Gross per 24 hour Intake 5428.6 ml Output 8250 ml Net -2821.4 ml Physical Exam: General: This is a male in no acute distress. Sitting up at side of bed. HEENT: PERRL. Sclerae anicteric. Oral mucosa is pink and moist with various healing ulce rations. Skin: Faint erythematous maculopapular rash noted to back and abdomen. Scattered petechia e to BLE Chest: Lungs clear to auscultation bilat. CV: RRR, no murmurs. Abdomen: S/NT/ND with NABS. No HSM appreciated. Extremities: Pulses strong and equal bilaterally. No c/c/e. Neuro: Alert and oriented x 3. Grossly nonfocal exam. CVC: LCW Trifusion in place w/o inflammation or induration. Dressing c/d/i Laboratory Results: Recent Labs 09/08/1524709/08/15 2346 09/10/15 0005 NA 144 143 146* K 3.5 4.4 4.7 CL 115* 114* 115* BICARB 21 21 22 BUN 23* 23* 26* CR 1.22 1.16 1.09 GLU 133* 127* 131* CA 8.4* 8.5* 8.2* AST 11 11 16 ALT 15 18 34 AP 64 61 63 TBILI 0.3 0.6 0.4 TP 5.6* 6.2* 6.1* ALB 2.4* 2.9* 2.8* Recent Labs 09/08/15 02409/08/15 2346 09/09/15 1415 09/10/15 0005 WBC 0.31* 0.62* -- 1.52* RBC 2.73* 3.13* -- 3.00* HB 7.9* 9.2* -- 8.7* HCT 22.6* 25.3* -- 24.3* PLT 12* 32* 33* 44* NEUTROPERC 19.3* 72.7* -- 74.8* LYMPHPERC 32.3 13.7* -- 12.2* MONOPERC 38.7* 13.6* -- 12.1* BASOPERC 0.0 0.0 -- 0.0 EOSPERC 0.0* 0.0* -- 0.9* Meds: Reviewed on rounds, see current MAR for medication list Past Medical History: Khurram Kelly is a 25 year old male admitted for initiation of pre-transplant conditioning with targeted busulfan and cytoxan prior to MM unrelated donor PBSCT for treatm ent of primary refractory AML. Treatment History: Khurram Kelly is a 25 y.o. [...] his L ankle. He was evaluated at [facility] ED on 06/[address] angiogram negative [...] recurrent fevers, pericarditis and CBC abnl, jazlyn millard was referred to Oncology for additional evaluation. Marrow studies completed on 05/19/15 s howed a hypercellular marrow (80-90%) with 86% of blast equivalents, comprised of myeloblast s, monoblasts and promonocytes. Concurrent flow cytometry detected 23% myeloid blasts and 60 % immature monocytic cells supporting this diagnosis. 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 He was referred to [facility] for further evaluation and man agement of his newly dx'd AML. Pt was admitted to [facility] on 05/26/15. Peripheral blood was [...] CD34, variable CD56, variable CD117, and dim [id number] mickey; promonocyte immunophenotype (70% by flow): CD11b, [...] No recurrence of oral cavity/upper chest pain. Hospitalization History: Hematology: #Refractory AML Conditioning regimen: tBuCy -Busulfan 1 mg/kg/dose PO every 6 hours on days -7, -6, -5 and -4; he received clonazepam a nd levetiracetam as prophylaxis for busulfan-induced seizures. -Cyclophosphamide 60 mg/kg IV over 2 hours daily on days -3 and -2. With this, he will rece mickey mesna 60 mg/kg/day as a continuous infusion beginning just prior to the first dose of cy toxan and completing 24 hours after the second dose. Stem cell transplant -BMT Day: +14 -Tolerated MM (DPB1 permissive antigen mismatch) URD stem cell product on 08/26-08/27 (two d ay 0s) without complications. CD 34 count = 5.96 x 10 6 per kg #Pancytopenia: d/t disease and chemo -Antimicrobials as below -See supportive care #Supportive Care: Growth Factor: Began daily Neupogen dosing on Day +12 (09/07) and continue until ANC > 150 0 x 2 consecutive days. Labs: Continue to check CBC with diff daily Transfusion parameters: -Transfuse PRBCs for HCT <21% -Transfuse PPH for platelet count <50,000 (due to mucosal bleeding/hematemesis) or sooner for s/s active bleeding GVHD: Prophylaxis: Tacrolimus + Long-course Methotrexate -Tacrolimus IV BID beginning day -2 with levels biweekly and goal 5-10 -Methotrexate 15 mg/m IV on day +1, and 10 mg/m IV on days +3, +6 and +11. -Received all MTX doses in full. Leucovorin rescue after days +6 and +11 doses. -No steroids will be used unless develops GvHD. Staging: Skin: Grade 0 Gut: Grade 0 Liver: Grade 0 Overall stage: 0 Pulmonary: Pretransplant PFTs completed on 08/09/2015 showed FEV1 of 99% predicted, FVC of 110% predicted and DLCO of 82% predicted. See ID section below for PNA Cardiovascular: Pretransplant TTE completed on 08/10/2015 showed a LVEF of 55-60%. 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 -Increased transfusion parameters as per above. -Suction at bedside to prevent swallowing of oral blood -Omeprazole stopped and transitioned to Nexium IV #CINV: now improved -Marinol 5 mg BID qac -Zofran 4 mg IV q12 hrs -Zyprexa 5-10 mg qHS -Ativan, Phenergan PRN (pt does not like Compazine) #Diarrhea: likely related to treatment as C diff negative on 08/31/25 & -Imodium PRN #Mucositis: grade 2 (grade 3 at worst), now healing with count recovery -Continue frequent oral care -Dilaudid AUTOMATIC DRY STARCH OPERATOR for pain control -TPN for nutritional support -Leucovorin rescue after MTX doses Renal: #VIKI: with rise in sCr to 1.35 noted on 09/07/15, most likely from supratherapeutic Vancomyci n level in setting concurrent CNI. sCr now on the downward trend with holding of Tacrolimus , stopping of Vancomycin, and NS 500mL bolus x1. 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 Blood cultures wi th NGTD. RVP 09/06/15 - negative. CT chest 09/07/15 - Tree in bud nodularity within the machine setter and repairer ior basal right lower lobe, medial right middle lobe and posterior right upper lobe most con sistent with multifocal bacterial pneumonia. -ID consulted for assistance with management given recurrent neutropenic fevers -Pulmonary consulted: re-evaluation of chest imaging most consistent with aspiration, bron choscopy NOT warranted -Cefepime (08/30-09/03), switched to Zosyn for persistent fevers -Zosyn (09/03-), switched to Cefepime + Flagyl combination due to interaction of PCN wit h Methotrexate -Cefepime ( -09/09 ), stopped with count recovery. -Levaquin 750 mg PO x through 09/12 to finish course per ID -Flagyl (-09/07) #R Neck Trifusion Infection: s/p CVC removal on 08/22, site less tender and erythematous. R eplaced Trifusion on prior to PBSCT -Vancomycin (08/21-09/06), recommended through 08/31 per ID but continued past this date due to persistent fevers #Prophylaxis: Bacterial: Abx as above Fungal: Fluconazole started day 0 Viral: Valacyclovir started day +1; switched to Acyclovir IV d/t mucositis, upon discharge will need oral therapy. PCP: Bactrim day of admission through day -1 then Pentamidine prior to discharge #Routine infectious disease testing -CMV by PCR weekly, starting after day 0. (Pt and donor CMV+) Lab Results Component Value Date CMVQUANTPCR Undetected 09/05/2015 CMVQUANTPCR Undetected 08/29/2015 CMVQUANTPCR Undetected 08/22/2015 CMVQUANTPCR Undetected 08/09/2015 -Asp. Galactomannan weekly, starting after day 0. Lab Results Component Value Date GALACTO Negative 09/05/2015 -IgG every other week and repleted if falls <300 Lab Results Component Value Date IGG 526* 09/04/2015 Fluid/Nutrition/Lytes: #Nutrition: Low bacteria diet, TPN added 09/03 with decreased PO intake and worsening mucosi tis #Fluid: NS boluses PRN elevated sCr #Lytes: Continue to check chemistries daily. Replace per supportive care protocol. Disposition: Pt with AML, adm for BuCy MMURD PBSCT. Anticipate 3-4 week hospitalization. [facility] [address] [place] [address] Mailcode: [id number] [facility] [id number] Abdiel Goins MD - 09/09/2015 8:48 PM PSTFormatting of this note might be different from the shanna valdes Hematologic Malignancies/Bone Marrow Transplant Inpatient Attending Progress Note: Hospital course summary: Patient hospitalized with IV TPN, IV immunosuppression, IV pain medications, IV antibiotics Skin rash with platelet transfusion, had severe bleed yesterday likely from mucositis Mouth pain, somewhat better with rise in neutrophils. He does not notice rash I rounded today,09/09/2015, in conjunction with Joseph Apodaca NP,the Advanced Practice Provider. I saw the patient, reviewed the history and relevant studies and developed an assessment an d plan. Subjective/Objective: Last Vitals: BP 136/73 | Pulse 75 | Temp 37.3 C (99.1 F) | RR 16 | Ht 1.873 m (6' 1.75" ) | Wt 84.868 kg (187 lb 1.6 oz) | SpO2 95% | BMI 24.19 kg/(m^2) 24 Hour Vital Min/Max: Systolic (24hrs), Av mmHg, Min:132 mmHg, Max:171 mmHg Diastolic (24hrs), Av mmHg, Min:72 mmHg, Max:101 mmHg Pulse Min: 58 Max: 80 Temp Min: 36.1 C (97 F) Max: 37.6 C (99.7 F) Resp Min: 16 Max: 16 SpO2 Min: 95 % Max: 100 % Intake/Output Summary (Last 24 hours) at 09/09/152048 Last data filed at 09/09/151999 Gross per 24 hour Intake 7005.23 ml Output 3730 ml Net 3275.23 ml Head mild discomfort over sinuses but no pain Oral mucositis-has some evidence of granulation Neck supple Lungs clear Heart rrr s1s2 Abdomen soft nontender, no organomegaly Skin mild hyperpigmented with faint erythematous Results for KHURRAM KELLY ( ) as of 09/09/2015 20:50 Ref. Range 09/08/2015 18:31 09/08/2015 23:46 09/09/2015 01:45 09/09/2015 14:15 09/09/2015 15:14 SODIUM, PLASMA (LAB) Latest Ref Range: 136-145 mmol/L 143 POTASSIUM, PLASMA (LAB) Latest Ref Range: 3.4-5.0 mmol/L 4.4 POTASSIUM CMNT Unknown No Hemo CHLORIDE, PLASMA (LAB) Latest Ref Range: 97-108 mmol/L 114 (H) TOTAL CO2, PLASMA (LAB) Latest Ref Range: 21-32 mmol/L 21 ANION GAP Latest Units: mmol/L 8 ANION GAP(ALB CORRECTED) Latest Ref Range: 4-11 mmol/L 10 BUN, PLASMA (LAB) Latest Ref Range: 6-20 mg/dL 23 (H) CREATININE PLASMA (LAB) Latest Ref Range: 0.70-1.30 mg/dL 1.16 EGFR - MEXICAN Latest Ref Range: >60 mL/min >60 EGFR NON -MEXICAN Latest Ref Range: >60 mL/min >60 GLUCOSE, PLASMA (LAB) Latest Ref Range: 60-99 mg/dL 127 (H) CALCIUM, PLASMA (LAB) Latest Ref Range: 8.6-10.2 mg/dL 8.5 (L) MAGNESIUM,PLASMA Latest Ref Range: 1.8-2.5 mg/dL 1.6 (L) PHOSPHORUS, PLASMA (LAB) Latest Ref Range: 2.4-4.7 mg/dL 3.2 AST(SGOT) Latest Ref Range: <=41 U/L 11 AST CMNT Unknown No Hemo ALT (SGPT) Latest Ref Range: <=60 U/L 18 ALK PHOS Latest Ref Range: 53-128 U/L 61 LD TOTAL, PLASMA Latest Ref Range: <=250 U/L 266 (H) LD CMNT Unknown No Hemo BILIRUBIN TOTAL Latest Ref Range: 0.3-1.2 mg/dL 0.6 BILI T CMNT Unknown No Hemo TOTAL PROTEIN, PLASMA (LAB) Latest Ref Range: 6.4-8.2 g/dL 6.2 (L) ALBUMIN, PLASMA (LAB) Latest Ref Range: 3.5-4.7 g/dL 2.9 (L) OCCULT BLOOD, FECES, SCREEN Latest Ref Range: Negative Positive (A) WHITE CELL COUNT Latest Ref Range: 4.40-11.00 K/cu mm 0.62 (L) RED CELL COUNT Latest Ref Range: 4.50-6.00 M/cu mm 3.13 (L) HEMOGLOBIN Latest Ref Range: 13.5-17.5 g/dL 9.2 (L) HEMATOCRIT Latest Ref Range: 41.0-53.0 % 25.3 (L) MCV Latest Ref Range: 80.0-96.0 fL 80.8 MCHC Latest Ref Range: 33.0-35.5 g/dL 36.4 RDW SD Latest Ref Range: 35.1-46.3 fL 36.9 PLATELET COUNT Latest Ref Range: 150-400 K/cu mm 32 (L) 33 (L) MPV Latest Ref Range: 9.7-12.3 fL 10.0 NRBC% Latest Ref Range: 0.0-0.3 % 3.2 (H) NRBC# Latest Ref Range: 0.00-0.02 K/cu mm 0.02 NEUTROPHIL % Latest Ref Range: 50.0-70.0 % 72.7 (H) LYMPHOCYTE % Latest Ref Range: 18.0-42.0 % 13.7 (L) MONOCYTE % Latest Ref Range: 3.5-9.0 % 13.6 (H) EOS % Latest Ref Range: 1.0-3.0 % 0.0 (L) BASO % Latest Ref Range: 0.0-2.0 % 0.0 IMMATURE GRANULOCYTE% Latest Ref Range: 0.0-0.6 % 0.0 NEUTROPHIL # Latest Ref Range: 1.80-7.70 K/cu mm 0.45 (L) LYMPHOCYTE # Latest Ref Range: 1.00-4.80 K/cu mm 0.08 (L) MONOCYTE # Latest Ref Range: 0.10-0.90 K/cu mm 0.08 (L) EOS # Latest Ref Range: 0.00-0.50 K/cu mm 0.00 BASO # Latest Ref Range: 0.00-0.10 K/cu mm 0.00 IMMATURE GRANULOCYTE# Latest Ref Range: 0.00-0.03 K/cu mm 0.00 DOHLE BODIES Unknown Present TOXIC GRANULATION Unknown Present PRODUCT DESCRIPTION Unknown PLATELETS PHERESI... PLATELETS PHERESI... PRODUCT UNIT # Unknown [id number] UNIT ABO Unknown A A UNIT RH Unknown POS POS STATUS OF UNIT Unknown Issued Issued EXPIRATION DATE Unknown [id number] BLOOD TYPE BARCODE Unknown [id number] Please see the Advanced Practice Provider documentation from today for the details regardin g the assessment and plan. Current Facility-Administered Medications Medication Dose Route Frequency acetaminophen (TYLENOL) tablet 325-650 mg 325-650 mg oral Q4H PRN acetaminophen (TYLENOL) tablet 650 mg 650 mg oral Q14D ALPRAZolam (XANAX) tablet 1 mg 1 mg oral TID PRN alteplase (CATHFLO ACTIVASE) injection 2 mg 2 mg Intracatheter PRN aluminum-magnesium hydroxide-simethicone (MAALOX; MYLANTA) 200-200-20 mg/5 mL suspensio n 30 mL 30 mL oral Q3H PRN amLODIPine (NORVASC) tablet 5 mg 5 mg oral DAILY baclofen (LIORESAL) tablet 10 mg 10 mg oral TID PRN calamine lotion topical PRN ceFEPime IV 2 grams in NS (MB+) 2 g intravenous Q8H diphenhydrAMINE (BENADRYL) capsule 25-50 mg 25-50 mg oral Q6H PRN diphenhydrAMINE (BENADRYL) injection 25 mg 25 mg intravenous Q14D diphenhydrAMINE (BENADRYL) injection 25-50 mg 25-50 mg intravenous Q4H PRN [id number]-kumyekeuc-VKYRHD (SPECIAL MOUTHWASH) suspension (compound) 10-15 mL 10 -15 mL oral Q1H PRN dronabinol (MARINOL) capsule 5 mg 5 mg oral BID AC esomeprazole (NEXIUM) IV 40 mg 40 mg intravenous DAILY fat emulsion (INTRALIPID) 20 % IV infusion 51 g 51 g intravenous TPN 2100 And parenteral nutrition (adult) intravenous TPN 2100 fat emulsion (INTRALIPID) 20 % IV infusion 51 g 51 g intravenous TPN 2100 And parenteral nutrition (adult) intravenous TPN 2100 filgrastim (NEUPOGEN) injection 480 mcg 5 mcg/kg (Treatment Plan Actual) subcutaneous QPM AT 1700 fluconazole (DIFLUCAN) tablet 400 mg 400 mg oral DAILY glycerin-mineral oil (LUBRIDERM SENSITIVE LANOLIN FREE) lotion topical Q2H PRN heparin 10 unit/mL IV flush syringe 50 Units 50 Units intravenous PRN hydrocortisone sodium succinate (PF) (SOLU-CORTEF) injection 50 mg 50 mg intravenous P RN HYDROmorphone 25 mg in preservative free NaCl 0.9% 50 mL AUTOMATIC DRY STARCH OPERATOR infusion intravenous CON TINUOUS immune globulin (IGG) (GAMMAGARD LIQUID) IV 5% 15 g intravenous Q14D lactulose (ENULAC) liquid 10-20 g 15-30 mL oral TID PRN leucovorin injection 10 mg 10 mg intravenous Q6H loperamide (IMODIUM) capsule 2-4 mg 2-4 mg oral PRN LORazepam (ATIVAN) injection 0.5 mg 0.5 mg intravenous Q6H PRN Or LORazepam (ATIVAN) tablet 0.5 mg 0.5 mg oral Q6H PRN magnesium hydroxide (MILK OF MAGNESIA) suspension 30 mL 30 mL oral Q6H PRN magnesium sulfate in water IV (RTU) 4 g 4 g intravenous PRN magnesium sulfate IV 8 g 8 g intravenous PRN menthol-zinc oxide (CALAZIME) topical paste topical BID PRN nalOXone (NARCAN) injection intravenous PRN nystatin-zinc oxide-lidocaine (NDX) ointment (compound) topical Q1H PRN OLANZapine (ZYPREXA ZYDIS) disintegrating tablet 5-10 mg 5-10 mg oral HS ondansetron (ZOFRAN) injection 4 mg 4 mg intravenous BID [START ON 09/20/2015] pentamidine (PENTAM) IV 300 mg 300 mg intravenous ONE TIME DURING VISIT polyethylene glycol (MIRALAX) powder 17 g 17 g oral DAILY PRN potassium chloride IV (central line) 40 mEq 40 mEq intravenous PRN And potassium chloride IV (central line) 60 mEq 60 mEq intravenous PRN potassium chloride SR (K-DUR) tablet 40 mEq 40 mEq oral PRN potassium phosphate IV 30 mmol 30 mmol intravenous PRN And potassium phosphate IV 40 mmol 40 mmol intravenous PRN promethazine (PHENERGAN) injection 12.5-25 mg 12.5-25 mg intravenous Q6H PRN Or promethazine (PHENERGAN) tablet 12.5-25 mg 12.5-25 mg oral Q6H PRN ramelteon (ROZEREM) tablet 8 mg 8 mg oral HS PRN saliva substitute (MOUTH KOTE) spray 1 spray 1 spray oral Q1H PRN senna-docusate (SENOKOT S) 8.6-50 mg 1-2 tablet 1-2 tablet oral Q12H PRN sertraline (ZOLOFT) tablet 25 mg 25 mg oral DAILY sodium chloride (OCEAN) 0.65 % nasal spray 1 spray 1 spray nasal Q1H PRN sodium phosphate IV 30 mmol 30 mmol intravenous PRN sodium phosphate IV 40 mmol 40 mmol intravenous PRN tacrolimus IV continuous infusion (100 mL dilution) 1.8 mg intravenous Q24H triamcinolone acetonide (KENALOG) 0.1 % cream topical BID ursodiol (ACTIGALL) capsule 300 mg 300 mg oral BID valACYclovir (VALTREX) tablet 500 mg 500 mg oral BID I am unconvinced skin biopsy is gvhd. While there were no eosinophils to support drug rash , the absence of eosinophils in a pancytopenic patient does not exclude drug rash. I think t he rash is undecipherable in etiology but I favor drug rash to zosyn as that fits time cours e. Now that we are having platelet wbc reaction requiring steroids, the rash will never have a resolution as to etiology. I would not treat as ghvd given relapse status. Platelet reaction. Premed with steroids but I worry about ablation of gvl effect and wonder if saline wash platelets preferable. Have asked blood bank. Mucositis on IV hydration and IV tpn-perhaps improving with anc recovery but given severity of bleed, keep hct>.24% and platelets>50K gvhd on IV tacro mtx Neutropenic fever on cefepime given mtx-recurrent consult ID, chest ct-aspiration pneumoni a. 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 Dehydration-unable to maintain hydration status with mucositis-partially covered with tpn - oral intake with liquids much better than food Hypoalbuminemia on IV tpn Hypomagnesemia replace Skin rash-stable on topical protopic Thrombocytopenia-give irradiated platelets- for moment premed with steroids Lobo Rizzo MD [place] [id number] [facility] Mailcode: [id number] [place] [address] Wilian Laura F PLANT ASSIGNER - 09/09/2015 7:37 PM PST Daily NPP Note - [facility] Attending: Lobo Rizzo MD [facility] Physician: Yari Garcia MD PCP: Pending Pcp ADDITION Date of Admission: 08/18/2015 Conditioning regimen: tBuCy Date of transplant: 08/27/2015 (two day 0s) Donor: MM URD (DPB1 permissive antigen mismatch, male, [id number]) Reason for admission: tBuCy MMURD for refractory AML 24-Hr Events/Daily Plan: -Refractory AML: adm for tBuCy MM URD, currently day +13 -IST: tacrolimus + long-course MTX. Last 2 doses of MTX were followed by leucovorin rescue due to mucositis. -Skin GvHD: developed non-pruritic erythematous maculopapular rash ~09/04/15. DDx includes p ossible hyperacute skin GvHD (as rash coincided with increased WBC that could be early signs of engraftment) vs drug reaction (as IV abx started a few days prior). Derm consulted: ski n biopsy shows SUBTLE VACUOLAR INTERFACE DERMATITIS, consistent with early mild GvHD. Triam cinolone cream BID. -Pancytopenia: d/t disease and chemo, WBC/ANC is on the upward trend consistent with early signs of engraftment. Transfuse to keep plt >50K in setting of recent mucosal bleeding and hematemesis. However may consider dropping threshold in the next 1-2 days as with no recurr ence of bleeding. Transfuse 1pph today to reduce risk of spontaneous bleeding. -Hematemesis: on 09/08/15, likely from swallowed blood associated with chemotherapy-induced m ucositis. Increased transfusion parameters as per above. Omeprazole stopped and switched to Nexium IV -Mucositis: grade 2 (grade 3 at worst), improving with count recovery and some medications have been transitioned from IV to PO. Continue frequent oral care, AUTOMATIC DRY STARCH OPERATOR and TPN. Continues Leucovorin rescue after MTX doses. -Lytes: standard replacement protocol. There are no electrolyte replacements required at t his time. -VIKI: with rise in sCr to 1.35 on 09/07/15. VIKI most likely from supratherapeutic Vancomycin level in setting concurrent CNI. Now improved with stopping of IV Vanco and holding of Tac rolimus for 1 dose. 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 Start amlodipine -Neutropenic Fever/Pneumonia: spiked first fever on 08/30/15, last fever 09/07/15. Blood cult ures with NGTD. RVP 09/06/15 - negative. CT chest 09/07/15 - Tree in bud nodularity within the posterior basal right lower lobe, medial right middle lobe and posterior right upper lobe m ost consistent with multifocal bacterial pneumonia. -ID consulted and following -Pulmonary consulted: re-evaluation of chest imaging most consistent with aspiration, bron choscopy NOT warranted -Continues on Cefepime through count recovery then transition to Levaquin 750 mg PO x8 day s per ID -Diarrhea: likely related to therapy as C diff negative last on 09/06/15. Imodium PRN. -CINV: now resolved. Stopped scopolamine patch. Continues scheduled Zofran, Marinol and Z yprexa. -Nutrition: a fruit cup yesterday with 2L of PO fluid intake documented. -DC Dispo: anticipate discharge on Sunday or Sunday pending counts continue to recover, pt remains afebrile, and mucositis has head with subsequent increase in PO intake Subjective: Continues to feel better with each passing day. Mouth has almost completely h ealed. Nausea is gone. Objective: Last Vitals: BP 136/73 | Pulse 75 | Temp 37.3 C (99.1 F) | RR 16 | Ht 1.873 m (6' 1.75" ) | Wt 84.868 kg (187 lb 1.6 oz) | SpO2 97% | BMI 24.19 kg/(m^2) 24 Hour Vital Min/Max: Systolic (24hrs), Av mmHg, Min:132 mmHg, Max:171 mmHg Diastolic (24hrs), Av mmHg, Min:72 mmHg, Max:101 mmHg Pulse Min: 58 Max: 80 Temp Min: 36.1 C (97 F) Max: 37.6 C (99.7 F) Resp Min: 16 Max: 16 SpO2 Min: 96 % Max: 100 % Intake/Output Summary (Last 24 hours) at 09/09/15 193 Last data filed at 09/09/15 1500 Gross per 24 hour Intake 7172.23 ml Output 4280 ml Net 2892.23 ml Physical Exam: General: This is a male in no acute distress. Sitting up at side of bed. HEENT: PERRL. Sclerae anicteric. Oral mucosa is pink and moist with various healing ulce rations. Skin: Faint erythematous maculopapular rash noted to back and abdomen. Scattered petechia e to BLE Chest: Lungs clear to auscultation bilat. CV: RRR, no murmurs. Abdomen: S/NT/ND with NABS. No HSM appreciated. Extremities: Pulses strong and equal bilaterally. No c/c/e. Neuro: Alert and oriented x 3. Grossly nonfocal exam. CVC: LCW Trifusion in place w/o inflammation or induration. Dressing c/d/i Laboratory Results: Recent Labs 09/06/15 2315 09/07/15 1210 09/08/15 0248 09/08/15 2346 NA 144 144 144 143 K 3.8 3.9 3.5 4.4 CL 115* 116* 115* 114* BICARB 19* 21 21 21 BUN 21* 22* 23* 23* CR 1.30 1.35* 1.22 1.16 GLU 113* 131* 133* 127* CA 8.7 8.5* 8.4* 8.5* AST 8 -- 11 11 ALT 17 -- 15 18 AP 70 -- 64 61 TBILI 0.5 -- 0.3 0.6 TP 5.7* -- 5.6* 6.2* ALB 2.7* -- 2.4* 2.9* Recent Labs 08/27/15 0436 09/07/15 2049 09/08/15 0248 09/08/15 2346 09/09/15 1415 WBC 1.31* < > 0.35* 0.31* 0.62* -- RBC 2.89* < > 2.03* 2.73* 3.13* -- HB 8.4* < > 6.0* 7.9* 9.2* -- HCT 23.2* < > 17.1* 22.6* 25.3* -- PLT 70* < > 7* 12* 32* 33* NEUTROPERC 72.2* -- -- 19.3* 72.7* -- LYMPHPERC 7.8* -- -- 32.3 13.7* -- MONOPERC 16.5* -- -- 38.7* 13.6* -- BASOPERC 0.0 -- -- 0.0 0.0 -- EOSPERC 0.0* -- -- 0.0* 0.0* -- < > = values in this interval not displayed. 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 Treatment History: Khurram Kelly is a 25 y.o. CM with a PMH of pericarditis who was in his [facility] u ntil 03/13/15 (the night of his [...] his L ankle. He was evaluated at [facility] ED on 06/[address] angiogram negative [...] recurrent fevers, pericarditis and CBC abnl, jazlyn millard was referred to Oncology for additional evaluation. Marrow studies completed on 05/19/15 s howed a hypercellular marrow (80-90%) with 86% of blast equivalents, comprised of myeloblast s, monoblasts and promonocytes. Concurrent flow cytometry detected 23% myeloid blasts and 60 % immature monocytic cells supporting this diagnosis. 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 He was referred to [facility] for further evaluation and man agement of his newly dx'd AML. Pt was admitted to [facility] on 05/26/15. Peripheral blood was [...] CD34, variable CD56, variable CD117, and dim [id number] mickey; promonocyte immunophenotype (70% by flow): CD11b, [...] No recurrence of oral cavity/upper chest pain. Hospitalization History: Hematology: #Refractory AML Conditioning regimen: tBuCy -Busulfan 1 mg/kg/dose PO every 6 hours on days -7, -6, -5 and -4; he received clonazepam a nd levetiracetam as prophylaxis for busulfan-induced seizures. -Cyclophosphamide 60 mg/kg IV over 2 hours daily on days -3 and -2. With this, he will rece mickey mesna 60 mg/kg/day as a continuous infusion beginning just prior to the first dose of cy toxan and completing 24 hours after the second dose. Stem cell transplant -BMT Day: +13 -Tolerated MM (DPB1 permissive antigen mismatch) URD stem cell product on 08/26-08/27 (two d ay 0s) without complications. CD 34 count = 5.96 x 10 6 per kg #Pancytopenia: d/t disease and chemo -Antimicrobials as below -See supportive care #Supportive Care: Growth Factor: Began daily Neupogen dosing on Day +12 (09/07) and continue until ANC > 150 0 x 2 consecutive days. Labs: Continue to check CBC with diff daily Transfusion parameters: -Transfuse PRBCs for HCT <21% -Transfuse PPH for platelet count <50,000 (due to mucosal bleeding/hematemesis) or sooner for s/s active bleeding GVHD: #Skin GvHD: biopsy proven. Developed non-pruritic erythematous maculopapular rash ~09/04/15 . DDx includes possible hyperacute skin GvHD (as rash coincided with increase WBC that coul d be early signs of engraftment) vs drug reaction (as IV abx started a few days prior). Alexander m consulted: skin biopsy shows SUBTLE VACUOLAR INTERFACE DERMATITIS, consistent with early m ild GvHD. -Triamcinolone cream BID. Prophylaxis: Tacrolimus + Long-course Methotrexate -Tacrolimus IV BID beginning day -2 with levels biweekly and goal 5-10 -Methotrexate 15 mg/m IV on day +1, and 10 mg/m IV on days +3, +6 and +11. -Received all MTX doses in full. Leucovorin rescue after days +6 and +11 doses. -No steroids will be used unless develops GvHD. Staging: Skin: Grade 1 (bx proven) Gut: Grade 0 Liver: Grade 0 Overall stage: 1 Pulmonary: Pretransplant PFTs completed on 08/09/2015 showed FEV1 of 99% predicted, FVC of 110% predicted and DLCO of 82% predicted. See ID section below for PNA Cardiovascular: Pretransplant TTE completed on 08/10/2015 showed a LVEF of 55-60%. 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 -Increased transfusion parameters as per above. -Suction at bedside to prevent swallowing of oral blood -Omeprazole stopped and transitioned to Nexium IV #CINV: now improved -Marinol 5 mg BID qac -Zofran 4 mg IV q12 hrs -Zyprexa 5-10 mg qHS -Ativan, Phenergan PRN (pt does not like Compazine) #Diarrhea: likely related to treatment as C diff negative on 08/31/25 & -Imodium PRN #Mucositis: grade 2 (grade 3 at worst), now healing with count recovery -Continue frequent oral care -Dilaudid AUTOMATIC DRY STARCH OPERATOR for pain control -TPN for nutritional support -Leucovorin rescue after MTX doses Renal: #VIKI: with rise in sCr to 1.35 noted on 09/07/15, most likely from supratherapeutic Vancomyci n level in setting concurrent CNI. sCr now on the downward trend with holding of Tacrolimus , stopping of Vancomycin, and NS 500mL bolus x1. 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 Blood cultures wi th NGTD. RVP 09/06/15 - negative. CT chest 09/07/15 - Tree in bud nodularity within the machine setter and repairer ior basal right lower lobe, medial right middle lobe and posterior right upper lobe most con sistent with multifocal bacterial pneumonia. -ID consulted for assistance with management given recurrent neutropenic fevers -Pulmonary consulted: re-evaluation of chest imaging most consistent with aspiration, bron choscopy NOT warranted -Cefepime (08/30-09/03), switched to Zosyn for persistent fevers -Zosyn (09/03-), switched to Cefepime + Flagyl combination due to interaction of PCN wit h Methotrexate -Cefepime ( - ), continue through count recovery then transition to Levaquin 750 mg PO x8 days per ID -Flagyl (-09/07) #R Neck Trifusion Infection: s/p CVC removal on 08/22, site less tender and erythematous. R eplaced Trifusion on prior to PBSCT -Vancomycin (08/21-09/06), recommended through 08/31 per ID but continued past this date due to persistent fevers #Prophylaxis: Bacterial: Abx as above Fungal: Fluconazole started day 0 Viral: Valacyclovir started day +1; switched to Acyclovir IV d/t mucositis, upon discharge will need oral therapy. PCP: Bactrim day of admission through day -1 then Pentamidine prior to discharge #Routine infectious disease testing -CMV by PCR weekly, starting after day 0. (Pt and donor CMV+) Lab Results Component Value Date CMVQUANTPCR Undetected 09/05/2015 CMVQUANTPCR Undetected 08/29/2015 CMVQUANTPCR Undetected 08/22/2015 CMVQUANTPCR Undetected 08/09/2015 -Asp. Galactomannan weekly, starting after day 0. Lab Results Component Value Date GALACTO Negative 09/05/2015 -IgG every other week and repleted if falls <300 Lab Results Component Value Date IGG 526* 09/04/2015 Fluid/Nutrition/Lytes: #Nutrition: Low bacteria diet, TPN added 09/03 with decreased PO intake and worsening mucosi tis #Fluid: NS boluses PRN elevated sCr #Lytes: -Continue to check chemistries daily -Replace per supportive care protocol. Disposition: Pt with AML, adm for BuCy MMURD PBSCT. Anticipate 3-4 week hospitalization. ORLY Artea[place] [id number] [facility] Mailcode: [id number] [place] [address] Lobo Goins MD - 09/08/2015 10:07 PM PST Hematologic Malignancies/Bone Marrow Transplant Inpatient Attending Progress Note: Hospital course summary: Patient hospitalized with IV TPN, IV immunosuppression, IV pain medications, IV antibiotics Skin rash with platelet transfusion, had severe bleed yesterday likely from mucositis Mouth pain, somewhat better I rounded today,09/08/2015, in conjunction with Joseph Apodaca NP,the Advanced Practice Provider. I saw the patient, reviewed the history and relevant studies and developed an assessment an d plan. Subjective/Objective: Last Vitals: BP 169/93 | Pulse 66 | Temp 37.3 C (99.1 F) | RR 16 | Ht 1.873 m (6' 1.75" ) | Wt 84.414 kg (186 lb 1.6 oz) | SpO2 97% | BMI 24.06 kg/(m^2) 24 Hour Vital Min/Max: Systolic (24hrs), Av mmHg, Min:120 mmHg, Max:169 mmHg Diastolic (24hrs), Av mmHg, Min:70 mmHg, Max:96 mmHg Pulse Min: 66 Max: 89 Temp Min: 36.8 C (98.2 F) Max: 37.6 C (99.7 F) Resp Min: 16 Max: 18 SpO2 Min: 94 % Max: 100 % Intake/Output Summary (Last 24 hours) at 09/08/152207 Last data filed at 09/08/152153 Gross per 24 hour Intake 5925.1 ml Output 4675 ml Net 1250.1 ml Head mild discomfort over sinuses but no pain Oral mucositis-has some evidence of granulation Neck supple Lungs clear Heart rrr s1s2 Abdomen soft nontender, no organomegaly Skin mild hyperpigmented with faint erythematous rash on iwcg-uar-lndlisji reaction, post d iffuse erythematous rash but not very intensely read however I saw it after steroids given SOURCE OF SPECIMEN:A Lt. upper back, punch biopsy CLINICAL DESCRIPTION: 25 yo M with AML s/p BMT 10 days ago with reticular erythematous patches on trunk; GVHD v drug v viral exanthem. GROSS DESCRIPTION: Received in formalin is a specimen labeled Khurram Kelly: A: Specimen is labeled "L upper back" and consists of a 3mm punch of farris-white skin, cut to a depth of 9mm. The surgical margin is inked black; the tissue is bisected; and entirely submitted in cassette A1. MICROSCOPIC DESCRIPTION: There is a mild, superficial perivascular lymphocytic infiltrate with scattered melanophages. Few lymphocytes extend to the overlying epidermis where there is subtle basal vacuolar change with rare dyskeratosis and basket-weave stratum corneum. DIAGNOSIS: SUBTLE VACUOLAR INTERFACE DERMATITIS. NOTE: Though quite subtle and not entirely specific, the changes are consistent with eruption of lymphocyte recovery and early mild dikqg-oleqss-zxcl disease. Similar histologic changes may be seen in morbilliform eruptions of variable etiology including viral exanthem. While not required for a diagnosis, the paucity of eosinophils probably makes drug eruption less likely. My electronic signature indicates that I have personally reviewed all diagnostic slides, the gross and/or microscopic portion of this report and formulated the final diagnosis. Rendering Diagnostician: Pricilla Jeronimo MD Pathologist Please see the Advanced Practice Provider documentation from today for the details regardin g the assessment and plan. Current Facility-Administered Medications Medication Dose Route Frequency acetaminophen (TYLENOL) tablet 325-650 mg 325-650 mg oral Q4H PRN acetaminophen (TYLENOL) tablet 650 mg 650 mg oral Q14D acyclovir (ZOVIRAX) 500 mg in NaCl 0.9 % IV 250 mg/m2 (Order-Specific) intravenous Q12 H ALPRAZolam (XANAX) tablet 1 mg 1 mg oral TID PRN alteplase (CATHFLO ACTIVASE) injection 2 mg 2 mg Intracatheter PRN aluminum-magnesium hydroxide-simethicone (MAALOX; MYLANTA) 200-200-20 mg/5 mL suspensio n 30 mL 30 mL oral Q3H PRN baclofen (LIORESAL) tablet 10 mg 10 mg oral TID PRN ceFEPime IV 2 grams in NS (MB+) 2 g intravenous Q8H diphenhydrAMINE (BENADRYL) capsule 25-50 mg 25-50 mg oral Q6H PRN diphenhydrAMINE (BENADRYL) injection 25 mg 25 mg intravenous Q14D diphenhydrAMINE (BENADRYL) injection 25-50 mg 25-50 mg intravenous Q4H PRN kvdclicppgVAYXY-wvvfmhxfi-BODPLV (SPECIAL MOUTHWASH) suspension (compound) 10-15 mL 10 -15 mL oral Q1H PRN dronabinol (MARINOL) capsule 5 mg 5 mg oral BID AC esomeprazole (NEXIUM) IV 40 mg 40 mg intravenous DAILY fat emulsion (INTRALIPID) 20 % IV infusion 51 g 51 g intravenous TPN 2100 And parenteral nutrition (adult) intravenous TPN 2100 filgrastim (NEUPOGEN) injection 480 mcg 5 mcg/kg (Treatment Plan Actual) subcutaneous QPM AT 1700 fluconazole IV 400 mg IN NaCl (RTU) 400 mg intravenous Q24H glycerin-mineral oil (LUBRIDERM SENSITIVE LANOLIN FREE) lotion topical Q2H PRN heparin 10 unit/mL IV flush syringe 50 Units 50 Units intravenous PRN hydrocortisone sodium succinate (PF) (SOLU-CORTEF) injection 50 mg 50 mg intravenous P RN HYDROmorphone 25 mg in preservative free NaCl 0.9% 50 mL AUTOMATIC DRY STARCH OPERATOR infusion intravenous CON TINUOUS immune globulin (IGG) (GAMMAGARD LIQUID) IV 5% 15 g intravenous Q14D lactulose (ENULAC) liquid 10-20 g 15-30 mL oral TID PRN leucovorin injection 10 mg 10 mg intravenous Q6H loperamide (IMODIUM) capsule 2-4 mg 2-4 mg oral PRN LORazepam (ATIVAN) injection 0.5 mg 0.5 mg intravenous Q6H PRN Or LORazepam (ATIVAN) tablet 0.5 mg 0.5 mg oral Q6H PRN magnesium hydroxide (MILK OF MAGNESIA) suspension 30 mL 30 mL oral Q6H PRN magnesium sulfate in water IV (RTU) 4 g 4 g intravenous PRN magnesium sulfate IV 8 g 8 g intravenous PRN metroNIDAZOLE (FLAGYL) IV 500 mg 500 mg intravenous Q8H nalOXone (NARCAN) injection intravenous PRN nystatin-zinc oxide-lidocaine (NDX) ointment (compound) topical Q1H PRN OLANZapine (ZYPREXA ZYDIS) disintegrating tablet 5-10 mg 5-10 mg oral HS ondansetron (ZOFRAN) injection 4 mg 4 mg intravenous BID [START ON 09/20/2015] pentamidine (PENTAM) IV 300 mg 300 mg intravenous ONE TIME DURING VISIT polyethylene glycol (MIRALAX) powder 17 g 17 g oral DAILY PRN potassium chloride IV (central line) 40 mEq 40 mEq intravenous PRN And potassium chloride IV (central line) 60 mEq 60 mEq intravenous PRN potassium chloride SR (K-DUR) tablet 40 mEq 40 mEq oral PRN potassium phosphate IV 30 mmol 30 mmol intravenous PRN And potassium phosphate IV 40 mmol 40 mmol intravenous PRN promethazine (PHENERGAN) injection 12.5-25 mg 12.5-25 mg intravenous Q6H PRN Or promethazine (PHENERGAN) tablet 12.5-25 mg 12.5-25 mg oral Q6H PRN ramelteon (ROZEREM) tablet 8 mg 8 mg oral HS PRN saliva substitute (MOUTH KOTE) spray 1 spray 1 spray oral Q1H PRN scopolamine (TRANSDERM-SCOPE) 1.5 mg (1 mg over 3 days) 1 patch 1 patch transdermal Q7 2H senna-docusate (SENOKOT S) 8.6-50 mg 1-2 tablet 1-2 tablet oral Q12H PRN sertraline (ZOLOFT) tablet 25 mg 25 mg oral DAILY sodium chloride (OCEAN) 0.65 % nasal spray 1 spray 1 spray nasal Q1H PRN sodium phosphate IV 30 mmol 30 mmol intravenous PRN sodium phosphate IV 40 mmol 40 mmol intravenous PRN tacrolimus IV continuous infusion (100 mL dilution) 1.8 mg intravenous Q24H triamcinolone acetonide (KENALOG) 0.1 % cream topical BID ursodiol (ACTIGALL) capsule 300 mg 300 mg oral BID I am unconvinced skin biopsy is gvhd. While there were no eosinophils to support drug rash , the absence of eosinophils in a pancytopenic patient does not exclude drug rash. I think t he rash is undecipherable in etiology but I favor drug rash to zosyn as that fits time cours e. Now that we are having platelet wbc reaction requiring steroids, the rash will never have a resolution as to etiology. I would not treat as ghvd given relapse status. Platelet reaction. Premed with steroids but I worry about ablation of gvl effect and wonder if saline wash platelets preferable. Have asked blood bank. Mucositis on IV hydration and IV tpn-perhaps improving with anc recovery but given severity of bleed, keep hct>.28% and platelets>50K gvhd on IV tacro-gave day 11 mtx given getting leukovorin today Neutropenic fever on cefepime given mtx-recurrent consult ID, chest ct-aspiration pneumoni a. 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 Dehydration-unable to maintain hydration status with mucositis-partially covered with tpn - oral intake with liquids much better than food Hypoalbuminemia on IV tpn Hypomagnesemia replace Skin rash-consult derm Thrombocytopenia-give irradiated platelets- for moment premed with steroids My total time today was 70 minutes with >50% for counseling and coordination of care cased discussed ID and pulmonary as well as prolonged discussion with patient and his Lobo Rizzo MD [facility] [id number] [facility] Mailcode: [id number] [place] [address] Mikayla Schwarz MD - 09/08/2015 2:07 PM PSTTransfusion Medicine: Transfusion Reaction Resident Note Reason for Consult: Concern for transfusion reaction Assessment: 1) Transfusion reaction: Mild allergic transfusion reaction - Probable urticarial rash of the face and right upper extremity occuring during platelet transfusion - No hypotension, wheezing, dyspnea, or other concerning signs/symptoms of severe allergic reaction - No evidence of hemolysis on post-transfusion sample Recommendation: 1) Continue to transfuse as deemed medically necessary 2) Pre-treat with Benadryl at least 30 minutes prior to transfusion 3) Please call the blood bank with any further questions or concerns Transfusion Medicine Resident Contacted at 1:21pm by the blood bank Background: Khurram Kelly is a 25 y.o. male with a history of AML s/p BMT, now with pancytopenia and mucositis with hematemesis recently this admission. The patient also has a rash on his back, with biopsy suggestive of GvHD. This morning he was receiving a uni t of ABO matched platelets, and with approximately 250 mL remaining in the bag he developed redness of the face. Per the nurse taking care of Mr. Kelly, the skin of the patient' s face was red and blotchy, but not raised or pruritic. She did identify one urticaria on h is right arm, which was pruritic. Vitals were stable throughout, and no other symptoms were noted. The transfusion reaction was stopped, and the patient was treated with IV benadryl. As of 2 hours post-transfusion, there is minimal improvement of the facial rash. Objective: Pre Transfusion During Transfusion Post Transfusion Temperature 37.3 37.1 37.5 Pulse 72 78 72 Blood Pressure 140/81 141/77 154/92 Clerical check shows no discrepancy Blood received shows no hemolysis Mikayla Dunn MD, Resident Department of Pathology and Laboratory MedicineElectronically signed by MD juan manuel Anne 09/09/2015 3:13 PM Sujata Grant MD - 09/08/2015 12:17 PM PSTDer Inpatient Prog ress Note: Biopsy Update: DIAGNOSIS: SUBTLE VACUOLAR INTERFACE DERMATITIS. NOTE: Though quite subtle and not entirely specific, the changes are consistent with eruption of lymphocyte recovery and early mild wnzbu-oucuco-wcfq disease. Similar histologic changes may be seen in morbilliform eruptions of variable etiology including viral exanthem. While not required for a diagnosis, the paucity of eosinophils probably makes drug eruption less likely. Please contact us with any further questions. Sujata King MD PGY-4, Department of Dermatology [facility] Electronically signed by Sujata Knig MD at 2015 12:18 PM PSTKwWilian orourke, TWISTING PRESS OPERATOR - 09/08/2015 10:24 AM PSTFormatting of this note migh t be different from the original. Daily NPP Note - [facility] Attending: Lobo Rizzo MD [facility] Physician: Yari Garcia MD PCP: Pending Pcp ADDITION Date of Admission: 08/18/2015 Conditioning regimen: tBuCy Date of transplant: 08/27/2015 (two day 0s) Donor: MM URD (DPB1 permissive antigen mismatch, male, [id number]) Reason for admission: tBuCy MMURD for refractory AML 24-Hr Events/Daily Plan: -Refractory AML: adm for tBuCy MM URD, currently day +12 -IST: tacrolimus + long-course MTX. Received last dose of MTX yesterday followed by leucov neto rescue due to mucositis. -Skin GvHD: developed non-pruritic erythematous maculopapular rash ~09/04/15. DDx includes p ossible hyperacute skin GvHD (as rash coincided with increased WBC that could be early signs of engraftment) vs drug reaction (as IV abx started a few days prior). Derm consulted: ski n biopsy shows SUBTLE VACUOLAR INTERFACE DERMATITIS, consistent with early mild GvHD. Triam cinolone cream BID. -Pancytopenia: d/t disease and chemo, WBC is on the upward trend consistent with early sign s of engraftment. -Transfuse to keep Hct >28% with bleeding. Transfuse 1 unit PRBCs to promote oxygen carryi ng capacity. -Transfuse to keep plt >50K in setting of mucosal bleeding and hematemesis. Transfuse 2pph today to reduce risk of spontaneous bleeding. -Hematemesis: overnight, likely from swallowed blood associated with chemotherapy-induced m ucositis. No bleeding noted to stools. -Increased transfusion parameters as per above. -Suction at bedside to prevent swallowing of oral blood -Stool guaiac to evaluate for GI bleed. -Omeprazole stopped and transitioned to Nexium IV -Mucositis: grade 3-4. Continue frequent oral care, AUTOMATIC DRY STARCH OPERATOR and TPN. Continues Leucovorin res cue after MTX doses. -Lytes: standard replacement protocol. There are no electrolyte replacements required at t his time. -VIKI: with rise in sCr to 1.35 on 09/07/15, but now on the downsard trend. VIKI most likely f rom supratherapeutic Vancomycin level in setting concurrent CNI. HOLD CNI pending this morn ing's level and IV Vancomycin stopped. -Neutropenic Fever: remains intermittently febrile since 08/30/15. Blood cultures with NGTD . RVP 09/06/15 - negative. CT chest 09/07/15 - Tree in bud nodularity within the posterior bas al right lower lobe, medial right middle lobe and posterior right upper lobe most consistent with multifocal bacterial pneumonia. -ID consulted and following -Pulmonary consulted for re-evaluation of chest imaging and consideration of bronch if war ranted -Continues on Cefepime + Flagyl (prior Zosyn stopped due to interaction between PCN and MT X) -IV Vancomycin stopped 09/07/15 as course was completed for suspected CVC infection -Diarrhea: likely related to therapy as C diff negative last on 09/06/15. Imodium PRN. -CINV: improved on scheduled antiemetics. Continues Scop patch, scheduled Zofran, Marinol a nd Zyprexa. -Nutrition: took in muffin and cereal for breakfast yesterday with 4.1L of PO fluid intake documented. Subjective: Threw up blood this morning, but no abdominal pain. Denies blood in stool. F eels that mouth is continuing to heal. Objective: Last Vitals: BP 150/77 | Pulse 73 | Temp 37.5 C (99.5 F) | RR 16 | Ht 1.873 m (6' 1.75" ) | Wt 84.414 kg (186 lb 1.6 oz) | SpO2 94% | BMI 24.06 kg/(m^2) 24 Hour Vital Min/Max: Systolic (24hrs), Av mmHg, Min:120 mmHg, Max:150 mmHg Diastolic (24hrs), Av mmHg, Min:70 mmHg, Max:86 mmHg Pulse Min: 65 Max: 89 Temp Min: 36.7 C (98.1 F) Max: 37.5 C (99.5 F) Resp Min: 16 Max: 20 SpO2 Min: 94 % Max: 100 % Intake/Output Summary (Last 24 hours) at 09/08/15 1024 Last data filed at 09/08/15 0835 Gross per 24 hour Intake 6167.75 ml Output 4157 ml Net 2010.75 ml Physical Exam: General: This is a male in no acute distress. Sitting up at side of bed. HEENT: PERRL. Sclerae anicteric. Posterior oropharynx erythematous and edematpus with sc attered ulcerations noted to buccal membranes and on tongue. Skin: Faint erythematous maculopapular rash noted to back and abdomen. Scattered petechia e to BLE Chest: Lungs clear to auscultation bilat. CV: RRR, no murmurs. Abdomen: S/NT/ND with NABS. No HSM appreciated. Extremities: Pulses strong and equal bilaterally. No c/c/e. Neuro: Alert and oriented x 3. Grossly nonfocal exam. CVC: LCW Trifusion in place w/o inflammation or induration. Dressing c/d/i Laboratory Results: Recent Labs 09/05/15 2357 09/06/15 2315 09/07/15 1210 09/08/15 0248 NA 144 -- 144 144 144 K 3.6 -- 3.8 3.9 3.5 CL 114* -- 115* 116* 115* BICARB 22 -- 19* 21 21 BUN 17 -- 21* 22* 23* CR 1.07 -- 1.30 1.35* 1.22 GLU 106* < > 113* 131* 133* CA 8.3* -- 8.7 8.5* 8.4* AST 7 -- 8 -- 11 ALT 21 -- 17 -- 15 AP 69 -- 70 -- 64 TBILI 0.4 -- 0.5 -- 0.3 TP 5.8* -- 5.7* -- 5.6* ALB 2.8* -- 2.7* -- 2.4* < > = values in this interval not displayed. Recent Labs 08/26/15 0051 08/27/15 0436 09/06/15 2315 09/07/15 2049 09/08/15 0248 WBC 0.83* -- 1.31* < > 0.19* 0.35* 0.31* RBC 2.86* -- 2.89* < > 2.53* 2.03* 2.73* HB 8.2* -- 8.4* < > 7.5* 6.0* 7.9* HCT 23.2* -- 23.2* < > 21.2* 17.1* 22.6* PLT 29* < > 70* < > 9* 7* 12* NEUTROPERC 74.1* -- 72.2* -- -- -- 19.3* LYMPHPERC 11.1* -- 7.8* -- -- -- 32.3 MONOPERC 14.8* -- 16.5* -- -- -- 38.7* BASOPERC 0.0 -- 0.0 -- -- -- 0.0 EOSPERC 0.0* -- 0.0* -- -- -- 0.0* < > = values in this interval not displayed. 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 Treatment History: Khurram Kelly is a 25 y.o. CM with a PMH of pericarditis who was in his [facility] u ntil 03/13/15 (the night of his [...] his L ankle. He was evaluated at [facility] ED on 06/[address] angiogram negative [...] recurrent fevers, pericarditis and CBC abnl, jazlyn millard was referred to Oncology for additional evaluation. Marrow studies completed on 05/19/15 s howed a hypercellular marrow (80-90%) with 86% of blast equivalents, comprised of myeloblast s, monoblasts and promonocytes. Concurrent flow cytometry detected 23% myeloid blasts and 60 % immature monocytic cells supporting this diagnosis. 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 He was referred to [facility] for further evaluation and man agement of his newly dx'd AML. Pt was admitted to [facility] on 05/26/15. Peripheral blood was [...] CD34, variable CD56, variable CD117, and dim FP020-nbnyg mickey; promonocyte immunophenotype (70% by flow): CD11b, [...] No recurrence of oral cavity/upper chest pain. Hospitalization History: Hematology: #Refractory AML Conditioning regimen: tBuCy -Busulfan 1 mg/kg/dose PO every 6 hours on days -7, -6, -5 and -4; he received clonazepam a nd levetiracetam as prophylaxis for busulfan-induced seizures. -Cyclophosphamide 60 mg/kg IV over 2 hours daily on days -3 and -2. With this, he will rece mickey mesna 60 mg/kg/day as a continuous infusion beginning just prior to the first dose of cy toxan and completing 24 hours after the second dose. Stem cell transplant -BMT Day: +12 -Tolerated MM (DPB1 permissive antigen mismatch) URD stem cell product on 08/26-08/27 (two d ay 0s) without complications. CD 34 count = 5.96 x 10 6 per kg #Pancytopenia: d/t disease and chemo -Antimicrobials as below -See supportive care #Supportive Care: Growth Factor: Began daily Neupogen dosing on Day +12 (09/07) and continue until ANC > 150 0 x 2 consecutive days. Labs: Continue to check CBC with diff daily Transfusion parameters: -Transfuse PRBCs for HCT <28% (due to mucosal bleeding/hematemesis) -Transfuse PPH for platelet count <50,000 (due to mucosal bleeding/hematemesis) or sooner for s/s active bleeding GVHD: #Skin GvHD: biopsy proven. Developed non-pruritic erythematous maculopapular rash ~09/04/15 . DDx includes possible hyperacute skin GvHD (as rash coincided with increase WBC that coul d be early signs of engraftment) vs drug reaction (as IV abx started a few days prior). Alexander m consulted: skin biopsy shows SUBTLE VACUOLAR INTERFACE DERMATITIS, consistent with early m ild GvHD. -Triamcinolone cream BID. Prophylaxis: Tacrolimus + Long-course Methotrexate -Tacrolimus IV BID beginning day -2 with levels biweekly and goal 5-10 -Methotrexate 15 mg/m IV on day +1, and 10 mg/m IV on days +3, +6 and +11. -Received all MTX doses in full. Leucovorin rescue after days +6 and +11 doses. -No steroids will be used unless develops GvHD. Staging: Skin: Grade 1 (bx proven) Gut: Grade 0 Liver: Grade 0 Overall stage: 1 Pulmonary: Pretransplant PFTs completed on 08/09/2015 showed FEV1 of 99% predicted, FVC of 110% predicted and DLCO of 82% predicted. No acute issues Cardiovascular: Pretransplant MUGA completed on 08/10/2015 showed a LVEF of 55-60%. #Risk for QTc Prolongation: d/t -azoles, antiemetics -Check QTc PRN; Last QTc on 08/27 = 431 (no haldol in last 72 hours) GI: #Hematemesis: noted night of 09/07/15 likely from swallowed blood associated with chemotherap y-induced mucositis. No bleeding noted to stools. -Increased transfusion parameters as per above. -Suction at bedside to prevent swallowing of oral blood -Stool guaiac to evaluate for GI bleed. -Omeprazole stopped and transitioned to Nexium IV #CINV: now improved -Marinol 5 mg BID qac -Zofran 4 mg IV q12 hrs -Scop patch -Zyprexa 5-10 mg qHS -Ativan, Phenergan PRN (pt does not like Compazine) #Diarrhea: likely related to treatment as C diff negative on 08/31/25 & -Imodium PRN #Mucositis: grade 3 (grade 4 at worst) -Continue frequent oral care -Dilaudid AUTOMATIC DRY STARCH OPERATOR for pain control -TPN for nutritional support -Leucovorin rescue after MTX doses Renal: #VIKI: with rise in sCr to 1.35 noted on 09/07/15, most likely from supratherapeutic Vancomyci n level in setting concurrent CNI. sCr now on the downsard trend with holding of Tacrolimus , stopping of Vancomycin, and NS 500mL bolus x1. -HOLD Tacrolimus pending 09/08/15 level -Vancomycin stopped effective 09/07/15 Neuro/Psych: #Depression - Zoloft COMMODITY SUPERVISOR -Zoloft 25 mg daily #Anxiety - Xanax PRN COMMODITY SUPERVISOR -Xanax 1 mg TID PRN Infectious Disease: #Neutropenic Fever: first noted on 08/30/15, remains intermittently febrile. Blood cultures with NGTD. RVP 09/06/15 - negative. CT chest 09/07/15 - Tree in bud nodularity within the pos terior basal right lower lobe, medial right middle lobe and posterior right upper lobe most consistent with multifocal bacterial pneumonia. -ID consulted for assistance with management given recurrent neutropenic fevers -Pulmonary consulted for re-evaluation of chest imaging and consideration of bronch if war ranted -Cefepime (08/30-09/03), switched to Zosyn for persistent fevers -Zosyn (09/03-), switched to Cefepime + Flagyl combination due to interaction of PCN wit h Methotrexate -Cefepime + Flagyl ( - ) #R Neck Trifusion Infection: s/p CVC removal on 08/22, site less tender and erythematous. R eplaced Trifusion on prior to PBSCT -Vancomycin (08/21-09/06), recommended through 08/31 per ID but continued past this date due to persistent fevers #Prophylaxis: Bacterial: Abx as above Fungal: Fluconazole started day 0 Viral: Valacyclovir started day +1; switched to Acyclovir IV d/t mucositis, upon discharge will need oral therapy. PCP: Bactrim day of admission through day -1 then Pentamidine prior to discharge #Routine infectious disease testing -CMV by PCR weekly, starting after day 0. (Pt and donor CMV+) Lab Results Component Value Date CMVQUANTPCR Undetected 09/05/2015 CMVQUANTPCR Undetected 08/29/2015 CMVQUANTPCR Undetected 08/22/2015 CMVQUANTPCR Undetected 08/09/2015 -Asp. Galactomannan weekly, starting after day 0. Lab Results Component Value Date GALACTO Negative 09/05/2015 -IgG every other week and repleted if falls <300 Lab Results Component Value Date IGG 526* 09/04/2015 Fluid/Nutrition/Lytes: #Nutrition: Low bacteria diet, TPN added 09/03 with decreased PO intake and worsening mucosi tis #Fluid: NS boluses PRN elevated sCr #Lytes: -Continue to check chemistries daily -Replace per supportive care protocol. Disposition: Pt with AML, adm for BuCy MMURD PBSCT. Anticipate 3-4 week hospitalization. ORLY Arteaga [facility] [id number] [facility] Mailcode: [id number] [place], [place] [id number] Lobo Goins MD - 09/07/2015 10:44 PM PST Hematologic Malignancies/Bone Marrow Transplant Inpatient Attending Progress Note: Hospital course summary: Patient hospitalized with IV TPN, IV immunosuppression, IV pain medications, IV antibiotics Has new skin rash Has new nasal stuffiness-viral pcr negaitve Mouth pain, somewhat better Had new fever spike this morning no localizing symptoms I rounded today,09/07/2015, in conjunction with Joseph Apodaca NP,the Advanced Practice Provider. I saw the patient, reviewed the history and relevant studies and developed an assessment an d plan. Subjective/Objective: Last Vitals: BP 120/70 | Pulse 86 | Temp 37.1 C (98.8 F) | RR 18 | Ht 1.873 m (6' 1.75" ) | Wt 84.414 kg (186 lb 1.6 oz) | SpO2 100% | BMI 24.06 kg/(m^2) 24 Hour Vital Min/Max: Systolic (24hrs), Av mmHg, Min:120 mmHg, Max:160 mmHg Diastolic (24hrs), Av mmHg, Min:70 mmHg, Max:86 mmHg Pulse Min: 65 Max: 110 Temp Min: 36.7 C (98.1 F) Max: 39.1 C (102.4 F) Resp Min: 16 Max: 22 SpO2 Min: 92 % Max: 100 % Intake/Output Summary (Last 24 hours) at 09/07/15 2465 Last data filed at 09/07/151999 Gross per 24 hour Intake 7609.3 ml Output 3145 ml Net 4464.3 ml Head mild discomfort over sinuses but no pain Oral mucositis-has some evidence of granulation Neck supple Lungs clear Heart rrr s1s2 Abdomen soft nontender, no organomegaly Skin mild erythematous rash on back-less intense today Results for KHURRAM KELLY ( ) as of 09/07/2015 22:48 Ref. Range 09/06/2015 23:15 09/07/2015 02:57 09/07/2015 05:55 09/07/2015 06:22 09/07/2015 08:31 09/06 12:10 SODIUM, PLASMA (LAB) Latest Ref Range: 136-145 mmol/L 144 144 POTASSIUM, PLASMA (LAB) Latest Ref Range: 3.4-5.0 mmol/L 3.8 3.9 POTASSIUM CMNT Unknown No Hemo No Hemo CHLORIDE, PLASMA (LAB) Latest Ref Range: 97-108 mmol/L 115 (H) 116 (H) TOTAL CO2, PLASMA (LAB) Latest Ref Range: 21-32 mmol/L 19 (L) 21 ANION GAP Latest Units: mmol/L 10 7 ANION GAP(ALB CORRECTED) Latest Ref Range: 4-11 mmol/L 13 (H) BUN, PLASMA (LAB) Latest Ref Range: 6-20 mg/dL 21 (H) 22 (H) CREATININE PLASMA (LAB) Latest Ref Range: 0.70-1.30 mg/dL 1.30 1.35 (H) EGFR - MEXICAN Latest Ref Range: >60 mL/min >60 >60 EGFR NON -MEXICAN Latest Ref Range: >60 mL/min >60 >60 GLUCOSE, PLASMA (LAB) Latest Ref Range: 60-99 mg/dL 113 (H) 131 (H) CALCIUM, PLASMA (LAB) Latest Ref Range: 8.6-10.2 mg/dL 8.7 8.5 (L) MAGNESIUM,PLASMA Latest Ref Range: 1.8-2.5 mg/dL 1.7 (L) PHOSPHORUS, PLASMA (LAB) Latest Ref Range: 2.4-4.7 mg/dL 3.8 AST(SGOT) Latest Ref Range: <=41 U/L 8 AST CMNT Unknown No Hemo ALT (SGPT) Latest Ref Range: <=60 U/L 17 ALK PHOS Latest Ref Range: 53-128 U/L 70 BILIRUBIN TOTAL Latest Ref Range: 0.3-1.2 mg/dL 0.5 BILI T CMNT Unknown No Hemo TOTAL PROTEIN, PLASMA (LAB) Latest Ref Range: 6.4-8.2 g/dL 5.7 (L) ALBUMIN, PLASMA (LAB) Latest Ref Range: 3.5-4.7 g/dL 2.7 (L) TACROLIMUS (FK 506) Latest Ref Range: 5.0-15.0 ng/mL 10.8 WHITE CELL COUNT Latest Ref Range: 4.40-11.00 K/cu mm 0.19 (L) RED CELL COUNT Latest Ref Range: 4.50-6.00 M/cu mm 2.53 (L) HEMOGLOBIN Latest Ref Range: 13.5-17.5 g/dL 7.5 (L) HEMATOCRIT Latest Ref Range: 41.0-53.0 % 21.2 (L) MCV Latest Ref Range: 80.0-96.0 fL 83.8 MCHC Latest Ref Range: 33.0-35.5 g/dL 35.4 RDW SD Latest Ref Range: 35.1-46.3 fL 38.9 PLATELET COUNT Latest Ref Range: 150-400 K/cu mm 9 (LL) MPV Latest Ref Range: 9.7-12.3 fL 11.9 NRBC% Latest Ref Range: 0.0-0.3 % 10.5 (H) NRBC# Latest Ref Range: 0.00-0.02 K/cu mm 0.02 NEUTROPHIL % Latest Ref Range: 50.0-70.0 % - LYMPHOCYTE % Latest Ref Range: 18.0-42.0 % - MONOCYTE % Latest Ref Range: 3.5-9.0 % - EOS % Latest Ref Range: 1.0-3.0 % - BASO % Latest Ref Range: 0.0-2.0 % - IMMATURE GRANULOCYTE% Latest Ref Range: 0.0-0.6 % - NEUTROPHIL # Latest Ref Range: 1.80-7.70 K/cu mm - LYMPHOCYTE # Latest Ref Range: 1.00-4.80 K/cu mm - MONOCYTE # Latest Ref Range: 0.10-0.90 K/cu mm - EOS # Latest Ref Range: 0.00-0.50 K/cu mm - BASO # Latest Ref Range: 0.00-0.10 K/cu mm - IMMATURE GRANULOCYTE# Latest Ref Range: 0.00-0.03 K/cu mm - CULTURE, BLOOD BACTI & YEAST [place] Unknown Rpt PRODUCT DESCRIPTION Unknown PLATELETS PHERESI... PRODUCT UNIT # Unknown [id number] UNIT ABO Unknown A UNIT RH Unknown POS STATUS OF UNIT Unknown Issued FINDINGS Unknown Febrile, non-hemo... EXPIRATION DATE Unknown [id number] BLOOD TYPE BARCODE Unknown 6200 CT CHEST WO CONTRAST 09/07/15 14:53:00 HISTORY: Neutropenic fever despite broad-spectrum antibiotics. Increasing cough COMPARISON:Radiograph 09/03/15 TECHNIQUE: Helical scanning was obtained of the chest without intravenous contrast and reviewed in soft tissue and lung algorithm. Coronal and sagittal images were also generated and reviewed. FINDINGS: Tunneled left IJ CVC tip is at the cavoatrial junction. The heart is normal in size. The patient is anemic. Trivial pericardial and trace bilateral pleural effusions are noted. There are scattered mediastinal but no axillary lymph nodes. Triangular shaped superior anterior mediastinal soft tissue is consistent with residual thymus. A focal consolidation is noted within the medial right middle lobe and posterior basal right lower lobe with associated tree in bud nodularity. There is very mild septal thickening. Minimal tree in bud is also noted within the posterior right upper lobe. The visualized aspects of the upper abdominal organs are unremarkable. There is no suspicious focal osseous abnormality. IMPRESSION: Trace hydrostatic pulmonary edema. Tree in bud nodularity within the posterior basal right lower lobe, medial right middle lobe and posterior right upper lobe most consistent with multifocal bacterial pneumonia. Attending Radiologists: HORACIO RIGGINS MD Author: HORACIO RIGGINS MD Please see the Advanced Practice Provider documentation from today for the details regardin g the assessment and plan. Current Facility-Administered Medications Medication Dose Route Frequency acetaminophen (TYLENOL) tablet 325-650 mg 325-650 mg oral Q4H PRN acetaminophen (TYLENOL) tablet 650 mg 650 mg oral Q14D acyclovir (ZOVIRAX) 500 mg in NaCl 0.9 % IV 250 mg/m2 (Order-Specific) intravenous Q12 H ALPRAZolam (XANAX) tablet 1 mg 1 mg oral TID PRN alteplase (CATHFLO ACTIVASE) injection 2 mg 2 mg Intracatheter PRN aluminum-magnesium hydroxide-simethicone (MAALOX; MYLANTA) 200-200-20 mg/5 mL suspensio n 30 mL 30 mL oral Q3H PRN baclofen (LIORESAL) tablet 10 mg 10 mg oral TID PRN ceFEPime IV 2 grams in NS (MB+) 2 g intravenous Q8H diphenhydrAMINE (BENADRYL) capsule 25-50 mg 25-50 mg oral Q6H PRN diphenhydrAMINE (BENADRYL) injection 25 mg 25 mg intravenous Q14D diphenhydrAMINE (BENADRYL) injection 25-50 mg 25-50 mg intravenous Q4H PRN bazghizdqhLIERZ-rsxcikegr-RUVTBH (SPECIAL MOUTHWASH) suspension (compound) 10-15 mL 10 -15 mL oral Q1H PRN dronabinol (MARINOL) capsule 5 mg 5 mg oral BID AC esomeprazole (NEXIUM) IV 40 mg 40 mg intravenous DAILY fat emulsion (INTRALIPID) 20 % IV infusion 51 g 51 g intravenous TPN 2100 And parenteral nutrition (adult) intravenous TPN 2100 [START ON 09/08/2015] filgrastim (NEUPOGEN) injection 480 mcg 5 mcg/kg (Treatment Plan A ctual) subcutaneous QPM AT 1700 fluconazole IV 400 mg IN NaCl (RTU) 400 mg intravenous Q24H glycerin-mineral oil (LUBRIDERM SENSITIVE LANOLIN FREE) lotion topical Q2H PRN heparin 10 unit/mL IV flush syringe 50 Units 50 Units intravenous PRN HYDROmorphone 25 mg in preservative free NaCl 0.9% 50 mL AUTOMATIC DRY STARCH OPERATOR infusion intravenous CON TINUOUS immune globulin (IGG) (GAMMAGARD LIQUID) IV 5% 15 g intravenous Q14D lactulose (ENULAC) liquid 10-20 g 15-30 mL oral TID PRN [START ON 09/08/2015] leucovorin injection 10 mg 10 mg intravenous Q6H loperamide (IMODIUM) capsule 2-4 mg 2-4 mg oral PRN LORazepam (ATIVAN) injection 0.5 mg 0.5 mg intravenous Q6H PRN Or LORazepam (ATIVAN) tablet 0.5 mg 0.5 mg oral Q6H PRN magnesium hydroxide (MILK OF MAGNESIA) suspension 30 mL 30 mL oral Q6H PRN magnesium sulfate in water IV (RTU) 4 g 4 g intravenous PRN magnesium sulfate IV 8 g 8 g intravenous PRN metroNIDAZOLE (FLAGYL) IV 500 mg 500 mg intravenous Q8H nalOXone (NARCAN) injection intravenous PRN nystatin-zinc oxide-lidocaine (NDX) ointment (compound) topical Q1H PRN OLANZapine (ZYPREXA ZYDIS) disintegrating tablet 5-10 mg 5-10 mg oral HS ondansetron (ZOFRAN) injection 4 mg 4 mg intravenous BID [START ON 09/20/2015] pentamidine (PENTAM) IV 300 mg 300 mg intravenous ONE TIME DURING VISIT polyethylene glycol (MIRALAX) powder 17 g 17 g oral DAILY PRN potassium chloride IV (central line) 40 mEq 40 mEq intravenous PRN And potassium chloride IV (central line) 60 mEq 60 mEq intravenous PRN potassium chloride SR (K-DUR) tablet 40 mEq 40 mEq oral PRN potassium phosphate IV 30 mmol 30 mmol intravenous PRN And potassium phosphate IV 40 mmol 40 mmol intravenous PRN promethazine (PHENERGAN) injection 12.5-25 mg 12.5-25 mg intravenous Q6H PRN Or promethazine (PHENERGAN) tablet 12.5-25 mg 12.5-25 mg oral Q6H PRN ramelteon (ROZEREM) tablet 8 mg 8 mg oral HS PRN saliva substitute (MOUTH KOTE) spray 1 spray 1 spray oral Q1H PRN scopolamine (TRANSDERM-SCOPE) 1.5 mg (1 mg over 3 days) 1 patch 1 patch transdermal Q7 2H senna-docusate (SENOKOT S) 8.6-50 mg 1-2 tablet 1-2 tablet oral Q12H PRN sertraline (ZOLOFT) tablet 25 mg 25 mg oral DAILY sodium chloride (OCEAN) 0.65 % nasal spray 1 spray 1 spray nasal Q1H PRN sodium phosphate IV 30 mmol 30 mmol intravenous PRN sodium phosphate IV 40 mmol 40 mmol intravenous PRN ursodiol (ACTIGALL) capsule 300 mg 300 mg oral BID Mucositis on IV hydration and IV tpn gvhd on IV tacro-gave day 11 mtx given mismatch mud transplant Neutropenic fever on IV vanco and returned to cefepime given mtx-recurrent consult ID, ches t ct-consider broader antifungal 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 Dehydration-unable to maintain hydration status with mucositis-partially covered with tpn - oral intake with liquids much better than food Hypoalbuminemia on IV tpn Hypomagnesemia replace Skin rash-consult derm Nasal stuffiness negative respiratory virus panel Thrombocytopenia-give irradiated platelets wWilian orourke, Yoli PLANT ASSIGNER - 09/07/2015 7:02 PM PST Daily NPP Note - [facility] Attending: Lobo Rizzo MD [facility] Physician: Yari Garcia MD PCP: Pending Pcp ADDITION Date of Admission: 08/18/2015 Conditioning regimen: tBuCy Date of transplant: 08/27/2015 (two day 0s) Donor: MM URD (DPB1 permissive antigen mismatch, male, [id number]) Reason for admission: tBuCy MMURD for refractory AML 24-Hr Events/Daily Plan: -Refractory AML: adm for tBuCy MM URD, currently day +11 -IST: tacrolimus + long-course MTX. Scheduled to receive full dose MTX today followed by l eucovorin rescue. 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 Etio logy of rash unknown. DDx includes possible hyperacute skin GvHD (as rash coincided with in crease WBC that could be early signs of engraftment) vs drug reaction (as IV abx started a f ew days prior). Derm consulted: skin biopsy shows SUBTLE VACUOLAR INTERFACE DERMATITIS, con sistent with early mild GvHD. Triamcinolone cream BID. -Pancytopenia: d/t disease and chemo. Standard transfusion parameters. Transfuse 1pph tod ay to reduce risk of spontaneous bleeding. -Lytes: standard replacement protocol. There are no electrolyte replacements required at t his time. -VIKI: with rise in sCr to 1.30, most likely from supratherapeutic Vancomycin level in setti ng concurrent CNI. HOLD CNI and stop IV Vancomycin at this time. 500mL NS bolus. -Neutropenic Fever: with high fever up to 39.1 overnight. Blood cultures with NGTD. RVP - negative. CT chest 09/07/15 - Tree in bud nodularity within the posterior basal right lower lobe, medial right middle lobe and posterior right upper lobe most consistent with mu ltifocal bacterial pneumonia. -ID consulted for assistance with management given recurrent neutropenic fevers -Continues on Cefepime + Flagyl (prior Zosyn stopped due to interaction between PCN and MT X) -Stop IV Vancomycin -R Neck Trifusion Infection: s/p CVC removal on 08/22. Completed course of Vancomycin with s ignificant improvement -Diarrhea: likely related to therapy as C diff negative last on 09/06/15. Imodium PRN. -Mucositis: grade 3-4. Continue frequent oral care, AUTOMATIC DRY STARCH OPERATOR and TPN. Plan for Leucovorin resc ue after MTX doses. -CINV: improved on scheduled antiemetics. Continues Scop patch, scheduled Zofran, Marinol a nd Zyprexa. -Nutrition: took in no solid food but 5.2L of PO fluid intake was documented in the past da y. Subjective: Continues to feel that ulcerations in mouth are beginning to heal. No chills with fever this morning. Objective: Last Vitals: BP 133/80 | Pulse 71 | Temp 36.7 C (98.1 F) | RR 20 | Ht 1.873 m (6' 1.75" ) | Wt 84.414 kg (186 lb 1.6 oz) | SpO2 98% | BMI 24.06 kg/(m^2) 24 Hour Vital Min/Max: Systolic (24hrs), Av mmHg, Min:128 mmHg, Max:160 mmHg Diastolic (24hrs), Av mmHg, Min:71 mmHg, Max:86 mmHg Pulse Min: 71 Max: 110 Temp Min: 36.7 C (98.1 F) Max: 39.1 C (102.4 F) Resp Min: 16 Max: 22 SpO2 Min: 92 % Max: 98 % Intake/Output Summary (Last 24 hours) at 09/07/15 1902 Last data filed at 09/07/15 1800 Gross per 24 hour Intake 8855.6 ml Output 4245 ml Net 4610.6 ml Physical Exam: General: This is a male in no acute distress. Sitting up at side of bed. HEENT: PERRL. Sclerae anicteric. Posterior oropharynx erythematous with scattered ulcera tions noted to buccal membranes and on tongue. Skin: Faint erythematous maculopapular rash noted to back and abdomen. Chest: Lungs clear to auscultation bilat. CV: RRR, no murmurs. Abdomen: S/NT/ND with NABS. No HSM appreciated. Extremities: Pulses strong and equal bilaterally. No c/c/e. Neuro: Alert and oriented x 3. Grossly nonfocal exam. CVC: LCW Trifusion in place w/o inflammation or induration. Dressing c/d/i Laboratory Results: Recent Labs 09/04/15 23009/05/15 23509/06/15 0615 09/06/15 2315 09/07/15 1210 NA 146* -- 144 -- -- 144 144 K 4.2 -- 3.6 -- -- 3.8 3.9 CL 114* -- 114* -- -- 115* 116* BICARB 25 -- 22 -- -- 19* 21 BUN 14 -- 17 -- -- 21* 22* CR 1.08 -- 1.07 -- -- 1.30 1.35* GLU 114* < > 106* < > 126* 113* 131* CA 7.8* -- 8.3* -- -- 8.7 8.5* AST 11 -- 7 -- -- 8 -- ALT 23 -- 21 -- -- 17 -- AP 71 -- 69 -- -- 70 -- TBILI 0.4 -- 0.4 -- -- 0.5 -- TP 5.5* -- 5.8* -- -- 5.7* -- ALB 2.7* -- 2.8* -- -- 2.7* -- < > = values in this interval not displayed. Recent Labs 08/25/15 0028 08/26/15 0051 08/27/15 0436 09/04/15 23009/05/15235609/06/15 2315 WBC 1.31* 0.83* -- 1.31* < > 0.12* 0.19* 0.19* RBC 2.66* 2.86* -- 2.89* < > 2.52* 2.65* 2.53* HB 7.7* 8.2* -- 8.4* < > 7.3* 7.8* 7.5* HCT 21.3* 23.2* -- 23.2* < > 20.8* 22.0* 21.2* PLT 25* 29* < > 70* < > 7* 13* 9* NEUTROPERC 70.6* 74.1* -- 72.2* -- -- -- -- LYMPHPERC 11.8* 11.1* -- 7.8* -- -- -- -- MONOPERC 17.6* 14.8* -- 16.5* -- -- -- -- BASOPERC 0.0 0.0 -- 0.0 -- -- -- -- EOSPERC 0.0* 0.0* -- 0.0* -- -- -- -- < > = values in this interval not displayed. 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 Treatment History: Khurram Kelly is a 25 y.o. [...] his L ankle. He was evaluated at [facility] ED on 06/[address] angiogram negative [...] recurrent fevers, pericarditis and CBC abnl, jazlyn millard was referred to Oncology for additional evaluation. Marrow studies completed on 05/19/15 s howed a hypercellular marrow (80-90%) with 86% of blast equivalents, comprised of myeloblast s, monoblasts and promonocytes. Concurrent flow cytometry detected 23% myeloid blasts and 60 % immature monocytic cells supporting this diagnosis. 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 He was referred to [facility] for further evaluation and man agement of his newly dx'd AML. Pt was admitted to [facility] on 05/26/15. Peripheral blood was [...] CD34, variable CD56, variable CD117, and dim [id number]-awgaw mickey; promonocyte immunophenotype (70% by flow): CD11b, [...] No recurrence of oral cavity/upper chest pain. Hospitalization History: Hematology: #Refractory AML Conditioning regimen: tBuCy -Busulfan 1 mg/kg/dose PO every 6 hours on days -7, -6, -5 and -4; he received clonazepam a nd levetiracetam as prophylaxis for busulfan-induced seizures. -Cyclophosphamide 60 mg/kg IV over 2 hours daily on days -3 and -2. With this, he will rece mickey mesna 60 mg/kg/day as a continuous infusion beginning just prior to the first dose of cy toxan and completing 24 hours after the second dose. Stem cell transplant -BMT Day: +11 -Tolerated MM (DPB1 permissive antigen mismatch) URD stem cell product on 08/26-08/27 (two d ay 0s) without complications. CD 34 count = 5.96 x 10 6 per kg #Pancytopenia: d/t disease and chemo -Antimicrobials as below -See supportive care #Supportive Care: Growth Factor: Due to begin daily Neupogen dosing on Day +12 (09/07) and continue until AN C > 1500 x 2 consecutive days. Labs: Continue to check CBC with diff daily Transfusion parameters: -Transfuse PRBCs for HCT <21% -Transfuse PPH for platelet count <10,000 or sooner for s/s active bleeding GVHD: #Skin GvHD: biopsy proven. Developed non-pruritic erythematous maculopapular rash ~09/04/15 . DDx includes possible hyperacute skin GvHD (as rash coincided with increase WBC that coul d be early signs of engraftment) vs drug reaction (as IV abx started a few days prior). Alexander m consulted: skin biopsy shows SUBTLE VACUOLAR INTERFACE DERMATITIS, consistent with early m ild GvHD. -Triamcinolone cream BID. Prophylaxis: Tacrolimus + Long-course Methotrexate -Tacrolimus IV BID beginning day -2 with levels biweekly and goal 5-10 -Methotrexate 15 mg/m IV on day +1, and 10 mg/m IV on days +3, +6 and +11. -Received all MTX doses in full. Leucovorin rescue after days +6 and +11 doses. -No steroids will be used unless develops GvHD. Staging: Skin: Grade 1 (bx proven) Gut: Grade 0 Liver: Grade 0 Overall stage: 1 Pulmonary: Pretransplant PFTs completed on 08/09/2015 showed FEV1 of 99% predicted, FVC of 110% predicted and DLCO of 82% predicted. No acute issues Cardiovascular: Pretransplant MUGA completed on 08/10/2015 showed a LVEF of 55-60%. #Risk for QTc Prolongation: d/t -azoles, antiemetics -Check QTc PRN; Last QTc on 08/27 = 431 (no haldol in last 72 hours) GI: #CINV: now improved -Marinol 5 mg BID qac -Zofran 4 mg IV q12 hrs -Scop patch -Zyprexa 5-10 mg qHS -Ativan, Phenergan PRN (pt does not like Compazine) #Diarrhea: likely related to treatment as C diff negative on 08/31/25 & -Imodium PRN #Mucositis: grade 3 (grade 4 at worst) -Continue frequent oral care -Dilaudid AUTOMATIC DRY STARCH OPERATOR for pain control -TPN for nutritional support -Leucovorin rescue after MTX doses Renal: #VIKI: with rise in sCr to 1.35 noted on 09/07/15, most likely from supratherapeutic Vancomyci n level in setting concurrent CNI. -HOLD Tacrolimus overnight and stop IV Vancomycin. -500mL NS bolus x1 on 09/07/15. 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 Blood cultures with NGTD. RVP 09/06/15 - negative. CT chest 09/07/15 - Tree in bud n odularity within the posterior basal right lower lobe, medial right middle lobe and posterio r right upper lobe most consistent with multifocal bacterial pneumonia. -ID consulted for assistance with management given recurrent neutropenic fevers -Cefepime (08/30-09/03), switched to Zosyn for persistent fevers -Zosyn (09/03-), switched to Cefepime + Flagyl combination due to interaction of PCN wit h Methotrexate -Cefepime + Flagyl ( - ) #R Neck Trifusion Infection: s/p CVC removal on 08/22, site less tender and erythematous. R eplaced Trifusion on prior to PBSCT -Vancomycin (08/21-09/06), recommended through 08/31 per ID but continued past this date due to persistent fevers #Prophylaxis: Bacterial: Abx as above Fungal: Fluconazole started day 0 Viral: Valacyclovir started day +1; switched to Acyclovir IV d/t mucositis, upon discharge will need oral therapy. PCP: Bactrim day of admission through day -1 then Pentamidine prior to discharge #Routine infectious disease testing -CMV by PCR weekly, starting after day 0. (Pt and donor CMV+) Lab Results Component Value Date CMVQUANTPCR Undetected 09/05/2015 CMVQUANTPCR Undetected 08/29/2015 CMVQUANTPCR Undetected 08/22/2015 CMVQUANTPCR Undetected 08/09/2015 -Asp. Galactomannan weekly, starting after day 0. Lab Results Component Value Date GALACTO Negative 09/05/2015 -IgG every other week and repleted if falls <300 Lab Results Component Value Date IGG 526* 09/04/2015 Fluid/Nutrition/Lytes: #Nutrition: Low bacteria diet, TPN added 09/03 with decreased PO intake and worsening mucosi tis #Fluid: NS boluses PRN elevated sCr #Lytes: -Continue to check chemistries daily -Replace per supportive care protocol. Disposition: Pt with AML, adm for BuCy MMURD PBSCT. Anticipate 3-4 week hospitalization. ORLY Arteaga [facility] [id number] [facility] Mailcode: [id number] [place] [address] Mikayla Schwarz MD - 09/07/2015 10:13 AM PSTTransfusion Medicine: Transfusion Reaction Resident Note Reason for Consult: Concern for transfusion reaction Assessment: 1) Transfusion reaction: Febrile non-hemolytic transfusion reaction vs. fever unrelated to transfusion - Patient is severely neutropenic with history of neutropenic fever this admission - Temperature increase of 1.8 C during platelet transfusion - No dyspnea, hypotension, or pain at infusion site - Blood bank work-up negative for evidence of hemolysis Recommendation: 1) Continue to transfuse as deemed medically necessary 2) Consider pretreatment with Acetaminophen 3) Contact the blood bank with any further questions or concerns Transfusion Medicine Resident Contacted at 8:07 by the blood bank Background: Khurram Kelly is a 25 y.o. male with a history of AML s/p BMT, now with pancytopenia and neutropenic fever this admission, receiving antibiotics. The patient was receiving a unit of ABO matched platelets, and with 50 mL remaining he was noted to hav e a fever (39.1 C). The patient did not experience dyspnea, pain at infusion site, hypotens ion, or urticaria. The transfusion was stopped, and blood was drawn for culture and transfu cricket reaction work-up. The patient received Tylenol post-transfusion. A temperature check 1.5 hours after transfusion was normal at 37.4 C. Objective: Pre Transfusion During Transfusion Post Transfusion Temperature 37.3 39.1 99.3 Pulse 103 110 NA Blood Pressure 135/71 160/86 NA Clerical check shows no discrepancy MAGALY (direct Claire test) is negative Blood received shows no hemolysis Mikayla Dunn MD, Resident Department of Pathology and Laboratory MedicineElectronically signed by MD juan manuel Anne 09/08/2015 11:41 AM Wilian Laura, TWISTING PRESS OPERATOR - 09/06/2015 10:38 PM PSTFormatting of this n ote might be different from the original. Daily NPP Note - [facility] Attending: Lobo Rizzo MD [facility] Physician: Yari Garcia MD PCP: Pending Pcp ADDITION Date of Admission: 08/18/2015 Conditioning regimen: tBuCy Date of transplant: 08/27/2015 (two day 0s) Donor: MM URD (DPB1 permissive antigen mismatch, male, [id number]) Reason for admission: tBuCy MMURD for refractory AML 24-Hr Events/Daily Plan: -Refractory AML: adm for tBuCy MM URD, currently day +10 -IST: tacrolimus + long-course MTX. Received leucovorin rescue after day +6 dose and will plan for leucovorin rescue after day +11 dose. 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 Etio logy of rash unknown. DDx includes possible hyperacute skin GvHD (as rash coincided with in crease WBC that could be early signs of engraftment) vs drug reaction (as IV abx started a f ew days prior). Derm consulted: skin biopsy PENDING. Due to asymptomatic nature of rash, w ill defer treatment until biopsy resulted. -Pancytopenia: d/t disease and chemo. Standard transfusion parameters. There is no blood product support required at this time. -Lytes: standard replacement protocol. There are no electrolyte replacements required at t his time. -Neutropenic Fever: first noted on 08/30, last fever 09/03. Blood cultures with NGTD. CXR cl ear. RVP 09/06/15 - negative. Continues on Cefepime + Flagyl (prior Zosyn stopped due to in teraction between PCN and MTX) -R Neck Trifusion Infection: s/p CVC removal on 08/22. Continue Vancomycin (recommended thro ugh 08/31 per ID but continued past this date due to persistent fevers). Consider stopping i n the next 1-2 days as site no longer tender or erythematous. -Diarrhea: likely related to therapy as C diff negative last on 09/06/15. Imodium PRN. -Mucositis: grade 3-4. Continue frequent oral care, AUTOMATIC DRY STARCH OPERATOR and TPN. Plan for Leucovorin resc ue after MTX doses. -CINV: improved on scheduled antiemetics. Continues Scop patch, scheduled Zofran, Marinol a nd Zyprexa. -Nutrition: took in no solid food but 4.8L of PO fluid intake was documented in the past da y. Subjective: Mouth still operator whiskey, but feels that it may be starting to heal. Pain overall w ell controlled on AUTOMATIC DRY STARCH OPERATOR. Objective: Last Vitals: BP 128/73 | Pulse 89 | Temp 37.2 C (99 F) | RR 16 | Ht 1.873 m (6' 1.75") | Wt 84.414 kg (186 lb 1.6 oz) | SpO2 96% | BMI 24.06 kg/(m^2) 24 Hour Vital Min/Max: Systolic (24hrs), Av mmHg, Min:126 mmHg, Max:144 mmHg Diastolic (24hrs), Av mmHg, Min:71 mmHg, Max:86 mmHg Pulse Min: 67 Max: 89 Temp Min: 37 C (98.6 F) Max: 37.7 C (99.9 F) Resp Min: 16 Max: 18 SpO2 Min: 95 % Max: 100 % Intake/Output Summary (Last 24 hours) at 09/06/158 Last data filed at 09/06/152199 Gross per 24 hour Intake 8605.81 ml Output 5165 ml Net 3440.81 ml Physical Exam: General: This is a male in no acute distress. Sitting up in bed, HEENT: PERRL. Sclerae anicteric. Posterior oropharynx erythematous with scattered ulcera tions noted to buccal membranes and on tongue. Skin: Faint erythematous maculopapular rash noted to back and abdomen. Chest: Lungs clear to auscultation bilat. CV: RRR, no murmurs. Abdomen: S/NT/ND with NABS. No HSM appreciated. Extremities: Pulses strong and equal bilaterally. No c/c/e. Neuro: Alert and oriented x 3. Grossly nonfocal exam. CVC: LCW Trifusion in place w/o inflammation or induration. Dressing c/d/i Laboratory Results: Recent Labs 09/04/15 0014 09/04/15 2301 09/05/15 2357 09/06/15 0013 09/06/15 0615 NA 142 -- 146* -- 144 -- -- K 3.7 -- 4.2 -- 3.6 -- -- CL 109* -- 114* -- 114* -- -- BICARB 25 -- 25 -- 22 -- -- BUN 8 -- 14 -- 17 -- -- CR 0.52* -- 1.08 -- 1.07 -- -- GLU 102* < > 114* < > 106* 122* 126* CA 7.5* -- 7.8* -- 8.3* -- -- AST 11 -- 11 -- 7 -- -- ALT 26 -- 23 -- 21 -- -- AP 79 -- 71 -- 69 -- -- TBILI 0.4 -- 0.4 -- 0.4 -- -- TP 5.5* -- 5.5* -- 5.8* -- -- ALB 2.6* -- 2.7* -- 2.8* -- -- < > = values in this interval not displayed. Recent Labs 08/25/15 0028 08/26/15 0051 08/27/15 0436 09/04/15 0014 09/04/15 2301 09/05/15 2357 WBC 1.31* 0.83* -- 1.31* < > <0.10* 0.12* 0.19* RBC 2.66* 2.86* -- 2.89* < > 2.62* 2.52* 2.65* HB 7.7* 8.2* -- 8.4* < > 7.6* 7.3* 7.8* HCT 21.3* 23.2* -- 23.2* < > 21.3* 20.8* 22.0* PLT 25* 29* < > 70* < > 14* 7* 13* NEUTROPERC 70.6* 74.1* -- 72.2* -- -- -- -- LYMPHPERC 11.8* 11.1* -- 7.8* -- -- -- -- MONOPERC 17.6* 14.8* -- 16.5* -- -- -- -- BASOPERC 0.0 0.0 -- 0.0 -- -- -- -- EOSPERC 0.0* 0.0* -- 0.0* -- -- -- -- < > = values in this interval not displayed. 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 Treatment History: Khurram Kelly is a 25 y.o. CM with a PMH of pericarditis who was in his [facility] u ntil 03/13/15 (the night of his [...] his L ankle. He was evaluated at [facility] ED on 06/[address] angiogram negative [...] recurrent fevers, pericarditis and CBC abnl, jazlyn millard was referred to Oncology for additional evaluation. Marrow studies completed on 05/19/15 s howed a hypercellular marrow (80-90%) with 86% of blast equivalents, comprised of myeloblast s, monoblasts and promonocytes. Concurrent flow cytometry detected 23% myeloid blasts and 60 % immature monocytic cells supporting this diagnosis. 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 He was referred to [facility] for further evaluation and man agement of his newly dx'd AML. Pt was admitted to [facility] on 05/26/15. Peripheral blood was [...] CD34, variable CD56, variable CD117, and dim [id number] mickey; promonocyte immunophenotype (70% by flow): CD11b, [...] No recurrence of oral cavity/upper chest pain. Hospitalization History: Hematology: #Refractory AML Conditioning regimen: tBuCy -Busulfan 1 mg/kg/dose PO every 6 hours on days -7, -6, -5 and -4; he received clonazepam a nd levetiracetam as prophylaxis for busulfan-induced seizures. -Cyclophosphamide 60 mg/kg IV over 2 hours daily on days -3 and -2. With this, he will rece mickey mesna 60 mg/kg/day as a continuous infusion beginning just prior to the first dose of cy toxan and completing 24 hours after the second dose. Stem cell transplant -BMT Day: +10 -Tolerated MM (DPB1 permissive antigen mismatch) URD stem cell product on 08/26-08/27 (two d ay 0s) without complications. CD 34 count = 5.96 x 10 6 per kg #Pancytopenia: d/t disease and chemo -Antimicrobials as below -See supportive care #Supportive Care: Growth Factor: Due to begin daily Neupogen dosing on Day +12 (09/07) and continue until AN C > 1500 x 2 consecutive days. Labs: Continue to check CBC with diff daily Transfusion parameters: -Transfuse PRBCs for HCT <21% -Transfuse PPH for platelet count <10,000 or sooner for s/s active bleeding GVHD: #Possible Skin GvHD: developed non-pruritic erythematous maculopapular rash ~09/04/15. Etio logy of rash unknown. DDx includes possible hyperacute skin GvHD (as rash coincided with in crease WBC that could be early signs of engraftment) vs drug reaction (as IV abx started a f ew days prior). -Derm consulted: skin biopsy PENDING -Due to asymptomatic nature of rash, will defer treatment until biopsy resulted. Prophylaxis: Tacrolimus + Long-course Methotrexate -Tacrolimus IV BID beginning day -2 with levels biweekly and goal 5-10 -Methotrexate 15 mg/m IV on day +1, and 10 mg/m IV on days +3, +6 and +11. -Received all MTX doses in full. Leucovorin rescue after days +6 and +11 doses. -No steroids will be used unless develops GvHD. Staging: Skin: Grade 0 Gut: Grade 0 Liver: Grade 0 Overall stage: 0 Pulmonary: Pretransplant PFTs completed on 08/09/2015 showed FEV1 of 99% predicted, FVC of 110% predicted and DLCO of 82% predicted. No acute issues Cardiovascular: Pretransplant MUGA completed on 08/10/2015 showed a LVEF of 55-60%. 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 Blood cultures with NGTD. CXR cl ear. RVP 09/06/15 - negative. -Cefepime (08/30-09/03), switched to Zosyn for persistent fevers -Zosyn (09/03-), switched to Cefepime + Flagyl combination due to interaction of PCN wit h Methotrexate -Cefepime + Flagyl ( - ) #R Neck Trifusion Infection: s/p CVC removal on 08/22, site less tender and erythematous. R eplaced Trifusion on prior to PBSCT -Vancomycin (08/21 - ), recommended through 08/31 per ID but continued past this date due to persistent fevers, will consider stopping soon #Prophylaxis: Bacterial: Abx as above Fungal: Fluconazole started day 0 Viral: Valacyclovir started day +1; switched to Acyclovir IV d/t mucositis, upon discharge will need oral therapy. PCP: Bactrim day of admission through day -1 then Pentamidine prior to discharge #Routine infectious disease testing -CMV by PCR weekly, starting after day 0. (Pt and donor CMV+) Lab Results Component Value Date CMVQUANTPCR Undetected 09/05/2015 CMVQUANTPCR Undetected 08/29/2015 CMVQUANTPCR Undetected 08/22/2015 CMVQUANTPCR Undetected 08/09/2015 -Asp. Galactomannan weekly, starting after day 0. Lab Results Component Value Date GALACTO Negative 09/05/2015 -IgG every other week and repleted if falls <300 Lab Results Component Value Date IGG 526* 09/04/2015 Fluid/Nutrition/Lytes: #Nutrition: Low bacteria diet, TPN added 09/03 with decreased PO intake and worsening mucosi tis #Fluid: None with TPN #Lytes: -Continue to check chemistries daily -Replace per supportive care protocol. Disposition: Pt with AML, adm for BuCy MMURD PBSCT. Anticipate 3-4 week hospitalization. ORLY Arteaga [facility] [id number] [facility] Mailcode: [id number] [place], [place] [id number] Lobo Goins MD - 09/06/2015 10:27 PM PST Hematologic Malignancies/Bone Marrow Transplant Inpatient Attending Progress Note: Hospital course summary: Patient hospitalized with IV TPN, IV immunosuppression, IV pain medications, IV antibiotics Has new skin rash Has new nasal stuffiness I rounded today, 09/06/2015, in conjunction with Joseph Apodaca NP,the Advanced Practice Provider. I saw the patient, reviewed the history and relevant studies and developed an assessment an d plan. Subjective/Objective: Last Vitals: BP 128/73 | Pulse 89 | Temp 37.2 C (99 F) | RR 16 | Ht 1.873 m (6' 1.75") | Wt 84.414 kg (186 lb 1.6 oz) | SpO2 96% | BMI 24.06 kg/(m^2) 24 Hour Vital Min/Max: Systolic (24hrs), Av mmHg, Min:126 mmHg, Max:144 mmHg Diastolic (24hrs), Av mmHg, Min:71 mmHg, Max:86 mmHg Pulse Min: 67 Max: 89 Temp Min: 37 C (98.6 F) Max: 37.7 C (99.9 F) Resp Min: 16 Max: 18 SpO2 Min: 95 % Max: 100 % Intake/Output Summary (Last 24 hours) at 09/06/15 2230 Last data filed at 09/06/15 2200 Gross per 24 hour Intake 7739.51 ml Output 5165 ml Net 2574.51 ml Head mild discomfort over sinuses but no pain Oral mucositis-has beginnings of granulation Neck supple Lungs clear Heart rrr s1s2 Abdomen soft nontender, no organomegaly Skin mild erythematous rash on back Results for KHURRAM KELLY ( ) as of 09/06/2015 22:29 Ref. Range 09/05/2015 23:57 09/06/2015 00:13 09/06/2015 06:15 09/06/2015 08:10 09/06/2015 10:29 09/06/2015 10:54 SODIUM, PLASMA (LAB) Latest Ref Range: 136-145 mmol/L 144 POTASSIUM, PLASMA (LAB) Latest Ref Range: 3.4-5.0 mmol/L 3.6 POTASSIUM CMNT Unknown No Hemo CHLORIDE, PLASMA (LAB) Latest Ref Range: 97-108 mmol/L 114 (H) TOTAL CO2, PLASMA (LAB) Latest Ref Range: 21-32 mmol/L 22 ANION GAP Latest Units: mmol/L 8 ANION GAP(ALB CORRECTED) Latest Ref Range: 4-11 mmol/L 11 BUN, PLASMA (LAB) Latest Ref Range: 6-20 mg/dL 17 CREATININE PLASMA (LAB) Latest Ref Range: 0.70-1.30 mg/dL 1.07 EGFR - MEXICAN Latest Ref Range: >60 mL/min >60 EGFR NON -MEXICAN Latest Ref Range: >60 mL/min >60 GLUCOSE, PLASMA (LAB) Latest Ref Range: 60-99 mg/dL 106 (H) CALCIUM, PLASMA (LAB) Latest Ref Range: 8.6-10.2 mg/dL 8.3 (L) MAGNESIUM,PLASMA Latest Ref Range: 1.8-2.5 mg/dL 1.8 PHOSPHORUS, PLASMA (LAB) Latest Ref Range: 2.4-4.7 mg/dL 3.6 AST(SGOT) Latest Ref Range: <=41 U/L 7 AST CMNT Unknown No Hemo ALT (SGPT) Latest Ref Range: <=60 U/L 21 ALK PHOS Latest Ref Range: 53-128 U/L 69 LD TOTAL, PLASMA Latest Ref Range: <=250 U/L 164 LD CMNT Unknown No Hemo BILIRUBIN TOTAL Latest Ref Range: 0.3-1.2 mg/dL 0.4 BILI T CMNT Unknown No Hemo TOTAL PROTEIN, PLASMA (LAB) Latest Ref Range: 6.4-8.2 g/dL 5.8 (L) ALBUMIN, PLASMA (LAB) Latest Ref Range: 3.5-4.7 g/dL 2.8 (L) TACROLIMUS (FK 506) Latest Ref Range: 5.0-15.0 ng/mL 9.4 BLOOD GLUCOSE, POC Latest Ref Range: 60-99 mg/dL 122 (H) 126 (H) WHITE CELL COUNT Latest Ref Range: 4.40-11.00 K/cu mm 0.19 (L) RED CELL COUNT Latest Ref Range: 4.50-6.00 M/cu mm 2.65 (L) HEMOGLOBIN Latest Ref Range: 13.5-17.5 g/dL 7.8 (L) HEMATOCRIT Latest Ref Range: 41.0-53.0 % 22.0 (L) MCV Latest Ref Range: 80.0-96.0 fL 83.0 MCHC Latest Ref Range: 33.0-35.5 g/dL 35.5 RDW SD Latest Ref Range: 35.1-46.3 fL 38.9 PLATELET COUNT Latest Ref Range: 150-400 K/cu mm 13 (L) MPV Latest Ref Range: 9.7-12.3 fL 10.6 NRBC% Latest Ref Range: 0.0-0.3 % 0.0 NRBC# Latest Ref Range: 0.00-0.02 K/cu mm 0.00 NEUTROPHIL % Latest Ref Range: 50.0-70.0 % - LYMPHOCYTE % Latest Ref Range: 18.0-42.0 % - MONOCYTE % Latest Ref Range: 3.5-9.0 % - EOS % Latest Ref Range: 1.0-3.0 % - BASO % Latest Ref Range: 0.0-2.0 % - IMMATURE GRANULOCYTE% Latest Ref Range: 0.0-0.6 % - NEUTROPHIL # Latest Ref Range: 1.80-7.70 K/cu mm - LYMPHOCYTE # Latest Ref Range: 1.00-4.80 K/cu mm - MONOCYTE # Latest Ref Range: 0.10-0.90 K/cu mm - EOS # Latest Ref Range: 0.00-0.50 K/cu mm - BASO # Latest Ref Range: 0.00-0.10 K/cu mm - IMMATURE GRANULOCYTE# Latest Ref Range: 0.00-0.03 K/cu mm - INR Latest Ref Range: 0.90-1.20 INR 1.19 ADENOVIRUS PCR Latest Ref Range: Not Detected Not Detected CHLAMYDIA PNEUMONIAE BY PCR Latest Ref Range: Not Detected Not Detected CMV DNA QUANTITATION BY PCR Latest Ref Range: Undetected, Undetected - See Below IU/mL Unde tected CORONAVIRUS 229E PCR Latest Ref Range: Not Detected Not Detected CORONAVIRUS HKU1 PCR Latest Ref Range: Not Detected Not Detected CORONAVIRUS NL63 PCR Latest Ref Range: Not Detected Not Detected CORONAVIRUS OC43 PCR Latest Ref Range: Not Detected Not Detected PARAINFLUENZA 1 PCR Latest Ref Range: Not Detected Not Detected PARAINFLUENZA 2 PCR Latest Ref Range: Not Detected Not Detected PARAINFLUENZA 3 PCR Latest Ref Range: Not Detected Not Detected PARAINFLUENZA 4 PCR Latest Ref Range: Not Detected Not Detected ASP GAL INDEX, SER Latest Ref Range: <=0.49 Index 0.11 ASPERGILLUS GALACTOMANNAN AG Latest Ref Range: Negative Negative INFLUENZA A PCR Latest Ref Range: Not Detected Not Detected INFLUENZA A SUBTYPE H1 PCR Latest Ref Range: Not Detected Not Detected INFLUENZA A H1-2009 PCR Latest Ref Range: Not Detected Not Detected INFLUENZA A H3 PCR Latest Ref Range: Not Detected Not Detected INFLUENZA B PCR Latest Ref Range: Not Detected Not Detected METAPNEUMOVIRUS PCR Latest Ref Range: Not Detected Not Detected MYCOPLASMA PNEUMONIAE BY PCR Latest Ref Range: Not Detected Not Detected RSV PCR Latest Ref Range: Not Detected Not Detected RHINOVIRUS/ENTEROVIRUS PCR Latest Ref Range: Not Detected Not Detected BORDETELLA PERTUSSIS PCR Latest Ref Range: Not Detected Not Detected C. DIFFICILE TOXIN Latest Ref Range: Negative Negative Please see the Advanced Practice Provider documentation from today for the details regardin g the assessment and plan. Patients Hospital Problem List: Active Hospital Problems 1) *Acute myeloid leukemia (AML), M4 (HCC)- primary induction failure 2) Electrolyte abnormality 3) Immunocompromised state associated with stem cell transplant ([facility]) 7) 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[facility]) 9) CINV (chemotherapy-induced nausea and vomiting) 10) Cellulitis 11) Pancytopenia due to chemotherapy ([facility]) 12) Neutropenic fever ([facility]) 13) Mucositis due to chemotherapy 14) On total parenteral nutrition (TPN) 15) Hypoalbuminemia due to protein-calorie malnutrition ([facility]) 16) Hypomagnesemia 17) Nasal congestion 18) Skin rash Resolved Hospital Problems 19) Dehydration Current Facility-Administered Medications Medication Dose Route Frequency acetaminophen (TYLENOL) tablet 325-650 mg 325-650 mg oral Q4H PRN [START ON 09/07/2015] acetaminophen (TYLENOL) tablet 650 mg 650 mg oral Q14D acyclovir (ZOVIRAX) 500 mg in NaCl 0.9 % IV 250 mg/m2 (Order-Specific) intravenous Q12 H ALPRAZolam (XANAX) tablet 1 mg 1 mg oral TID PRN alteplase (CATHFLO ACTIVASE) injection 2 mg 2 mg Intracatheter PRN aluminum-magnesium hydroxide-simethicone (MAALOX; MYLANTA) 200-200-20 mg/5 mL suspensio n 30 mL 30 mL oral Q3H PRN baclofen (LIORESAL) tablet 10 mg 10 mg oral TID PRN ceFEPime IV 2 grams in NS (MB+) 2 g intravenous Q8H diphenhydrAMINE (BENADRYL) capsule 25-50 mg 25-50 mg oral Q6H PRN [START ON 09/07/2015] diphenhydrAMINE (BENADRYL) injection 25 mg 25 mg intravenous Q14D diphenhydrAMINE (BENADRYL) injection 25-50 mg 25-50 mg intravenous Q4H PRN [id number] (SPECIAL MOUTHWASH) suspension (compound) 10-15 mL 10 -15 mL oral Q1H PRN dronabinol (MARINOL) capsule 5 mg 5 mg oral BID AC fat emulsion (INTRALIPID) 20 % IV infusion 51 g 51 g intravenous TPN 2100 And parenteral nutrition (adult) intravenous TPN 2100 [START ON 09/08/2015] filgrastim (NEUPOGEN) injection 480 mcg 5 mcg/kg (Treatment Plan A ctual) subcutaneous QPM AT 1700 fluconazole IV 400 mg IN NaCl (RTU) 400 mg intravenous Q24H glycerin-mineral oil (LUBRIDERM SENSITIVE LANOLIN FREE) lotion topical Q2H PRN heparin 10 unit/mL IV flush syringe 50 Units 50 Units intravenous PRN HYDROmorphone 25 mg in preservative free NaCl 0.9% 50 mL AUTOMATIC DRY STARCH OPERATOR infusion intravenous CON TINUOUS [START ON 09/07/2015] immune globulin (IGG) (GAMMAGARD LIQUID) IV 5% 15 g intravenous Q1 4D lactulose (ENULAC) liquid 10-20 g 15-30 mL oral TID PRN loperamide (IMODIUM) capsule 2-4 mg 2-4 mg oral PRN LORazepam (ATIVAN) injection 0.5 mg 0.5 mg intravenous Q6H PRN Or LORazepam (ATIVAN) tablet 0.5 mg 0.5 mg oral Q6H PRN magnesium hydroxide (MILK OF MAGNESIA) suspension 30 mL 30 mL oral Q6H PRN magnesium sulfate in water IV (RTU) 4 g 4 g intravenous PRN magnesium sulfate IV 8 g 8 g intravenous PRN [START ON 09/07/2015] methotrexate (PF) injection 20 mg 20 mg intravenous ONCE metroNIDAZOLE (FLAGYL) IV 500 mg 500 mg intravenous Q8H nalOXone (NARCAN) injection intravenous PRN nystatin-zinc oxide-lidocaine (NDX) ointment (compound) topical Q1H PRN OLANZapine (ZYPREXA ZYDIS) disintegrating tablet 5-10 mg 5-10 mg oral HS omeprazole (PRILOSEC) capsule 40 mg 40 mg oral DAILY ondansetron (ZOFRAN) injection 4 mg 4 mg intravenous BID [START ON 09/20/2015] pentamidine (PENTAM) IV 300 mg 300 mg intravenous ONE TIME DURING VISIT polyethylene glycol (MIRALAX) powder 17 g 17 g oral DAILY PRN potassium chloride IV (central line) 40 mEq 40 mEq intravenous PRN And potassium chloride IV (central line) 60 mEq 60 mEq intravenous PRN potassium chloride SR (K-DUR) tablet 40 mEq 40 mEq oral PRN potassium phosphate IV 30 mmol 30 mmol intravenous PRN And potassium phosphate IV 40 mmol 40 mmol intravenous PRN promethazine (PHENERGAN) injection 12.5-25 mg 12.5-25 mg intravenous Q6H PRN Or promethazine (PHENERGAN) tablet 12.5-25 mg 12.5-25 mg oral Q6H PRN ramelteon (ROZEREM) tablet 8 mg 8 mg oral HS PRN saliva substitute (MOUTH KOTE) spray 1 spray 1 spray oral Q1H PRN scopolamine (TRANSDERM-SCOPE) 1.5 mg (1 mg over 3 days) 1 patch 1 patch transdermal Q7 2H senna-docusate (SENOKOT S) 8.6-50 mg 1-2 tablet 1-2 tablet oral Q12H PRN sertraline (ZOLOFT) tablet 25 mg 25 mg oral DAILY sodium chloride (OCEAN) 0.65 % nasal spray 1 spray 1 spray nasal Q1H PRN sodium phosphate IV 30 mmol 30 mmol intravenous PRN sodium phosphate IV 40 mmol 40 mmol intravenous PRN tacrolimus IV intermittent (100 mL dilution) 1.4 mg intravenous Q12H ursodiol (ACTIGALL) capsule 300 mg 300 mg oral BID vancomycin (VANCOCIN) IV 1,750 mg 1,750 mg intravenous Q12H Mucositis on IV hydration and IV tpn gvhd on IV tacro Neutropenic fever on IV vanco and zosyn 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 I saw the patient, reviewed the history and relevant studies and developed an assessment an d plan. Subjective/Objective: Last Vitals: BP 127/78 | Pulse 65 | Temp 37.1 C (98.8 F) | RR 16 | Ht 1.873 m (6' 1.75" ) | Wt 82.328 kg (181 lb 8 oz) | SpO2 100% | BMI 23.47 kg/(m^2) 24 Hour Vital Min/Max: Systolic (24hrs), Av mmHg, Min:120 mmHg, Max:140 mmHg Diastolic (24hrs), Av mmHg, Min:62 mmHg, Max:83 mmHg Pulse Min: 60 Max: 74 Temp Min: 37.1 C (98.8 F) Max: 37.4 C (99.3 F) Resp Min: 16 Max: 16 SpO2 Min: 98 % Max: 100 % Intake/Output Summary (Last 24 hours) at 09/05/15 2250 Last data filed at 09/05/15 2120 Gross per 24 hour Intake 9743.74 ml Output 5250 ml Net 4493.74 ml Oral mucositis-possible beginnings of granulation Neck supple Lungs clear Heart rrr s1s2 Abdomen soft nontender, no organomegaly Results for KHURRAM KELLY ( ) as of 09/05/2015 22:46 Ref. Range 09/04/2015 23:01 SODIUM, PLASMA (LAB) Latest Ref Range: 136-145 mmol/L 146 (H) POTASSIUM, PLASMA (LAB) Latest Ref Range: 3.4-5.0 mmol/L 4.2 POTASSIUM CMNT Unknown No Hemo CHLORIDE, PLASMA (LAB) Latest Ref Range: 97-108 mmol/L 114 (H) TOTAL CO2, PLASMA (LAB) Latest Ref Range: 21-32 mmol/L 25 ANION GAP Latest Units: mmol/L 7 ANION GAP(ALB CORRECTED) Latest Ref Range: 4-11 mmol/L 10 BUN, PLASMA (LAB) Latest Ref Range: 6-20 mg/dL 14 CREATININE PLASMA (LAB) Latest Ref Range: 0.70-1.30 mg/dL 1.08 EGFR - MEXICAN Latest Ref Range: >60 mL/min >60 EGFR NON -MEXICAN Latest Ref Range: >60 mL/min >60 GLUCOSE, PLASMA (LAB) Latest Ref Range: 60-99 mg/dL 114 (H) CALCIUM, PLASMA (LAB) Latest Ref Range: 8.6-10.2 mg/dL 7.8 (L) MAGNESIUM,PLASMA Latest Ref Range: 1.8-2.5 mg/dL 1.7 (L) PHOSPHORUS, PLASMA (LAB) Latest Ref Range: 2.4-4.7 mg/dL 4.0 AST(SGOT) Latest Ref Range: <=41 U/L 11 AST CMNT Unknown No Hemo ALT (SGPT) Latest Ref Range: <=60 U/L 23 ALK PHOS Latest Ref Range: 53-128 U/L 71 BILIRUBIN TOTAL Latest Ref Range: 0.3-1.2 mg/dL 0.4 BILI T CMNT Unknown No Hemo TOTAL PROTEIN, PLASMA (LAB) Latest Ref Range: 6.4-8.2 g/dL 5.5 (L) ALBUMIN, PLASMA (LAB) Latest Ref Range: 3.5-4.7 g/dL 2.7 (L) Please see the Advanced Practice Provider documentation from today for the details regardin g the assessment and plan. Patients Hospital Problem List: Active Hospital Problems 1) *Acute myeloid leukemia (AML), M4 (HCC)- primary induction failure 2) Electrolyte abnormality 3) 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) 7) 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HCC) 9) CINV (chemotherapy-induced nausea and vomiting) 10) Cellulitis 11) Pancytopenia due to chemotherapy (HCC) 12) Neutropenic fever (HCC) 13) Mucositis due to chemotherapy 14) On total parenteral nutrition (TPN) 15) Hypoalbuminemia due to protein-calorie malnutrition (HCC) 16) Hypomagnesemia Resolved Hospital Problems 17) Dehydration Current Facility-Administered Medications Medication Dose Route Frequency acetaminophen (TYLENOL) tablet 325-650 mg 325-650 mg oral Q4H PRN [START ON 09/07/2015] acetaminophen (TYLENOL) tablet 650 mg 650 mg oral Q14D acyclovir (ZOVIRAX) 500 mg in NaCl 0.9 % IV 250 mg/m2 (Order-Specific) intravenous Q12 H ALPRAZolam (XANAX) tablet 1 mg 1 mg oral TID PRN alteplase (CATHFLO ACTIVASE) injection 2 mg 2 mg Intracatheter PRN aluminum-magnesium hydroxide-simethicone (MAALOX; MYLANTA) 200-200-20 mg/5 mL suspensio n 30 mL 30 mL oral Q3H PRN baclofen (LIORESAL) tablet 10 mg 10 mg oral TID PRN ceFEPime IV 2 grams in NS (MB+) 2 g intravenous Q8H dextrose 50 % in water IV 25 mL 25 mL intravenous PRN diphenhydrAMINE (BENADRYL) capsule 25-50 mg 25-50 mg oral Q6H PRN [START ON 09/07/2015] diphenhydrAMINE (BENADRYL) injection 25 mg 25 mg intravenous Q14D diphenhydrAMINE (BENADRYL) injection 25-50 mg 25-50 mg intravenous Q4H PRN [id number] (SPECIAL MOUTHWASH) suspension (compound) 10-15 mL 10 -15 mL oral Q1H PRN dronabinol (MARINOL) capsule 5 mg 5 mg oral BID AC fat emulsion (INTRALIPID) 20 % IV infusion 51 g 51 g intravenous TPN 2100 And parenteral nutrition (adult) intravenous TPN 2100 [START ON 09/08/2015] filgrastim (NEUPOGEN) injection 480 mcg 5 mcg/kg (Treatment Plan A ctual) subcutaneous QPM AT 1700 fluconazole IV 400 mg IN NaCl (RTU) 400 mg intravenous Q24H glucagon (GLUCAGEN) injection 1 mg 1 mg intramuscular PRN glucose chewable tablet 16 g 16 g oral PRN glycerin-mineral oil (LUBRIDERM SENSITIVE LANOLIN FREE) lotion topical Q2H PRN heparin 10 unit/mL IV flush syringe 50 Units 50 Units intravenous PRN HYDROmorphone 25 mg in preservative free NaCl 0.9% 50 mL AUTOMATIC DRY STARCH OPERATOR infusion intravenous CON TINUOUS [START ON 09/07/2015] immune globulin (IGG) (GAMMAGARD LIQUID) IV 5% 15 g intravenous Q1 4D insulin lispro (HUMALOG) injection subcutaneous QID lactulose (ENULAC) liquid 10-20 g 15-30 mL oral TID PRN loperamide (IMODIUM) capsule 2 mg 2 mg oral PRN LORazepam (ATIVAN) injection 0.5 mg 0.5 mg intravenous Q6H PRN Or LORazepam (ATIVAN) tablet 0.5 mg 0.5 mg oral Q6H PRN magnesium hydroxide (MILK OF MAGNESIA) suspension 30 mL 30 mL oral Q6H PRN magnesium sulfate in water IV (RTU) 4 g 4 g intravenous PRN magnesium sulfate IV 8 g 8 g intravenous PRN [START ON 09/07/2015] methotrexate (PF) injection 20 mg 20 mg intravenous ONCE metroNIDAZOLE (FLAGYL) IV 500 mg 500 mg intravenous Q8H nalOXone (NARCAN) injection intravenous PRN nystatin-zinc oxide-lidocaine (NDX) ointment (compound) topical Q1H PRN OLANZapine (ZYPREXA ZYDIS) disintegrating tablet 5-10 mg 5-10 mg oral HS omeprazole (PRILOSEC) capsule 40 mg 40 mg oral DAILY ondansetron (ZOFRAN) injection 4 mg 4 mg intravenous BID [START ON 09/20/2015] pentamidine (PENTAM) IV 300 mg 300 mg intravenous ONE TIME DURING VISIT polyethylene glycol (MIRALAX) powder 17 g 17 g oral DAILY PRN potassium chloride IV (central line) 40 mEq 40 mEq intravenous PRN And potassium chloride IV (central line) 60 mEq 60 mEq intravenous PRN potassium chloride SR (K-DUR) tablet 40 mEq 40 mEq oral PRN potassium phosphate IV 30 mmol 30 mmol intravenous PRN And potassium phosphate IV 40 mmol 40 mmol intravenous PRN promethazine (PHENERGAN) injection 12.5-25 mg 12.5-25 mg intravenous Q6H PRN Or promethazine (PHENERGAN) tablet 12.5-25 mg 12.5-25 mg oral Q6H PRN ramelteon (ROZEREM) tablet 8 mg 8 mg oral HS PRN saliva substitute (MOUTH KOTE) spray 1 spray 1 spray oral Q1H PRN scopolamine (TRANSDERM-SCOPE) 1.5 mg (1 mg over 3 days) 1 patch 1 patch transdermal Q7 2H senna-docusate (SENOKOT S) 8.6-50 mg 1-2 tablet 1-2 tablet oral Q12H PRN sertraline (ZOLOFT) tablet 25 mg 25 mg oral DAILY sodium chloride (OCEAN) 0.65 % nasal spray 1 spray 1 spray nasal Q1H PRN sodium phosphate IV 30 mmol 30 mmol intravenous PRN sodium phosphate IV 40 mmol 40 mmol intravenous PRN tacrolimus IV intermittent (100 mL dilution) 1.4 mg intravenous Q12H ursodiol (ACTIGALL) capsule 300 mg 300 mg oral BID vancomycin (VANCOCIN) IV 1,750 mg 1,750 mg intravenous Q12H Mucositis on IV hydration and IV tpn gvhd on IV tacro Neutropenic fever on IV vanco and zosyn 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 Zach Rizzo [facility] Physician: Yari Garcia MD PCP: Pending Pcp ADDITION Date of Admission: 08/18/2015 Conditioning regimen: tBuCy Date of transplant: 08/27/2015 (Two Day 0's) Donor: MMURD Reason for admission: tBuCy [facility] for refractory AML 24-Hr Events/Daily Plan: -Refractory AML: Adm for BuCy MMURD with Tacro + long-course MTX IST. Currently Day +9. Ma y not be able to get day +11 MTX d/t mucositis. -Neutropenic Fever (first noted 08/30): Afebrile for past 24 hour. 09/03 CXR clear, PanCx NGTD, was on zosyn but due to interaction with MTX- changed to cefepime/flagyl on 09/05. -R Neck Trifusion infection s/p CVC removal on 08/22: Site no longer tender or erythematous. Continue Vancomycin (recommended through 08/31 per ID but will continue past this date for n ow as pt continues to be febrile) Replaced Trifusion on 08/26 prior to PBSCT -Pancytopenia d/t disease and chemo: Standard transfusion parameters . TX 1 un PRBC, 1 un p pH. today -Mucositis, grade 3-4 (noted 09/01): Continue mouth rinses. Remains on AUTOMATIC DRY STARCH OPERATOR and TPN. Leucovor in rescue ordrered on09/03/15. -CINV: Improved. No emesis. Continues Scop patch, scheduled Zofran, Marinol and Zyprexa. -Lytes: Standard replacement protocol. No repletion required -Nutrition: Took in applesauce and liquids- 3.3 L of oral fluids. No solid foods Subjective: No new issues today, slept well overnight. Pain controlled on AUTOMATIC DRY STARCH OPERATOR Objective: Last Vitals: BP 134/75 | Pulse 68 | Temp 37.4 C (99.3 F) | RR 16 | Ht 1.873 m (6' 1.75" ) | Wt 82.328 kg (181 lb 8 oz) | SpO2 100% | BMI 23.47 kg/(m^2) 24 Hour Vital Min/Max: Systolic (24hrs), Av mmHg, Min:115 mmHg, Max:140 mmHg Diastolic (24hrs), Av mmHg, Min:59 mmHg, Max:83 mmHg Pulse Min: 58 Max: 71 Temp Min: 37 C (98.6 F) Max: 37.4 C (99.3 F) Resp Min: 16 Max: 18 SpO2 Min: 98 % Max: 100 % Intake/Output Summary (Last 24 hours) at 09/05/15 1248 Last data filed at 09/05/15 1200 Gross per 24 hour Intake 8771.84 ml Output 6230 ml Net 2541.84 ml Physical Exam: General: This is a male in no acute distress. Walking back to bed from bathroom HEENT: PERRL. Sclerae anicteric. Mucosa pink and moist with erythematous pharynx. Erosio ns noted to bucchal membranes and on tongue and sublingual. Skin: No rash noted. R upper chest mild firmness near prior Trifusion insertion site Chest: Lungs clear to auscultation bilat. CV: RRR, no murmurs. Abdomen: S/NT/ND with NABS. No HSM appreciated. Extremities: Pulses strong and equal bilaterally. No c/c/e. Neuro: Alert and oriented x 3. Grossly nonfocal exam. CVC: LCW Trifusion in place w/o inflammation or induration. Dressing c/d/i Recent Labs 09/02/15229909/04/15 0014 09/04/15 23009/05/15 0008 09/05/15 0639 09/05/15 1155 NA 137 142 -- 146* -- -- -- K 3.7 3.7 -- 4.2 -- -- -- CL 107 109* -- 114* -- -- -- BICARB 24 25 -- 25 -- -- -- BUN 10 8 -- 14 -- -- -- CR 0.68* 0.52* -- 1.08 -- -- -- GLU 112* 102* < > 114* 125* 111* 127* CA 7.5* 7.5* -- 7.8* -- -- -- AST 9 11 -- 11 -- -- -- ALT 32 26 -- 23 -- -- -- AP 92 79 -- 71 -- -- -- TBILI 0.7 0.4 -- 0.4 -- -- -- TP 5.8* 5.5* -- 5.5* -- -- -- ALB 2.8* 2.6* -- 2.7* -- -- -- < > = values in this interval not displayed. Recent Labs 08/25/15 0028 08/26/15 0051 08/27/15 0436 09/02/15 2300 09/04/15 0014 09/04/15 230 WBC 1.31* 0.83* -- 1.31* < > <0.10* <0.10* 0.12* RBC 2.66* 2.86* -- 2.89* < > 2.86* 2.62* 2.52* HB 7.7* 8.2* -- 8.4* < > 8.2* 7.6* 7.3* HCT 21.3* 23.2* -- 23.2* < > 23.1* 21.3* 20.8* PLT 25* 29* < > 70* < > 7* 14* 7* NEUTROPERC 70.6* 74.1* -- 72.2* -- -- -- -- LYMPHPERC 11.8* 11.1* -- 7.8* -- -- -- -- MONOPERC 17.6* 14.8* -- 16.5* -- -- -- -- BASOPERC 0.0 0.0 -- 0.0 -- -- -- -- EOSPERC 0.0* 0.0* -- 0.0* -- -- -- -- < > = values in this interval not displayed. 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 Treatment history: Khurram Kelly is a 25 y.o. CM with a PMH of pericarditis who was in his [facility] u ntil 03/13/15 (the night of his [...] his L ankle. He was evaluated at [facility] on 06/[address] angiogram negative [...] recurrent fevers, pericarditis and CBC abnl, jazlyn millard was referred to Oncology for additional evaluation. Marrow studies completed on 05/19/15 s howed a hypercellular marrow (80-90%) with 86% of blast equivalents, comprised of myeloblast s, monoblasts and promonocytes. Concurrent flow cytometry detected 23% myeloid blasts and 60 % immature monocytic cells supporting this diagnosis. 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 He was referred to [facility] for further evaluation and man agement of his newly dx'd AML. Pt was admitted to [facility] on 05/26/15. Peripheral blood was [...] CD34, variable CD56, variable CD117, and dim OS118-wmtme mickey; promonocyte immunophenotype (70% by flow): CD11b, [...] No recurrence of oral cavity/upper chest pain. Hospitalization History: Hematology: #AML Conditioning regimen: tBuCy -Busulfan 1 mg/kg/dose PO every 6 hours on days -6, -5 and -4 -Clonazepam and Levetiracetam as prophylaxis for busulfan-induced seizures -Cyclophosphamide 60 mg/kg IV over 2 hours daily on days -3 and -2 -Mesna 60 mg/kg/day as a continuous infusion beginning just prior to the first dose of cy toxan and completing 24 hours after the second dose Stem cell transplant -Day: +9 -Tolerated MMURD stem cell product on 08/26-08/27 (Two Day 0's) without complications. CD 34 count = 5.96 x 10 6 per kg #Pancytopenia d/t disease and chemo -Antimicrobials as below -See supportive care #Supportive Care: Growth Factor: Due to begin daily Neupogen dosing on Day +12 (09/07) and continue until AN C > 1500 x 2 consecutive days. Labs: Continue to check CBC with diff daily Transfusion parameters: -Transfuse PRBCs for HCT <21% -Transfuse PPH for platelet count <10,000 or sooner for s/s active bleeding GVHD: No evidence of acute GvHD of the gut, liver or skin Prophylaxis: -Tacro started on Day -2; Check levels twice weekly and PRN. PharmD to titrate to goal. Go al level: 5-10 -MTX 15 mg/m2 IV x 1 on Day +1, then MTX 10 mg/m2 IV on Days +3, +6, and +11, Leucovorin r escue started Day +7 after Day +6 dose d/t mucositis. -No steroids unless he develops GvHD Staging: Skin: Grade 0 Gut: Grade 0 Liver: Grade 0 Overall stage: 0 Pulmonary: Pretransplant PFTs completed on 08/09/2015 showed FEV1 of 99% predicted, FVC of 110% predicted and DLCO of 82% predicted. No acute issues Cardiovascular: Pretransplant MUGA completed on 08/10/2015 showed a LVEF of 55-60%. #Risk for QTc Prolongation d/t -azoles, antiemetics -Check QTc PRN; Last QTc on 08/27 = 431 (no haldol in last 72 hours) GI: #CINV - Improved since 08/29 -Marinol 5 mg BID qac -Zofran PO/IV q 12 hrs -Scop patch -Zyprexa 5 mg BID, increased 08/28 -Ativan, Phenergan PRN (pt does not like Compazine) #Constipation, now with Diarrhea d/t treatment - (08/28) C. Diff neg. Senna Plus, Colace, La ctulose PRN COMMODITY SUPERVISOR -Imodium PRN #Mucositis, grade 3-4 (noted 09/01): earliest signs of healing noted 09/05 -Continue mouth rinses. -Morphine AUTOMATIC DRY STARCH OPERATOR started 09/03 -TPN started 09/03 -Leucovorin rescue after Day +6 MTX Neuro/Psych: #Depression - Zoloft COMMODITY SUPERVISOR -Zoloft 25 mg daily #Anxiety - Xanax PRN COMMODITY SUPERVISOR -Xanax 1 mg TID PRN Infectious Disease: #Neutropenic Fever (first noted on 08/30): CXR clear, BCx NGTD. Continues to be febrile 09/03 , repeat CXR 09/03 with clear lungs. -Cefepime (08/30-09/03) -Zosyn (09/03- ) with persistent fevers. Per pharmacy can only continue Zosyn until d/t interaction with MTX (at that time switch to Cefepime and Flagyl x 48 hours) #R Neck Trifusion infection s/p CVC removal on 08/22: Site less tender and erythematous -Vancomycin (2/13- ); recommended through 08/31 per ID but will continue past this date fo r now as pt remains febrile as of 09/02 -Replaced Trifusion on 08/26 prior to PBSCT -Follow BCx: NTD #Prophylaxis: Bacterial: ABx as above Fungal: Fluconazole started day 0 Viral: Valacyclovir started day +1; will switch to Acyclovir IV d/t mucositi, upon dischar ge will need oral therapy. PCP: Bactrim day of admission through day -1 then Pentamidine prior to discharge #Routine infectious disease testing -CMV by PCR weekly, starting after day 0. (Pt and donor CMV+) Lab Results Component Value Date CMVQUANTPCR Undetected 08/29/2015 CMVQUANTPCR Undetected 08/22/2015 CMVQUANTPCR Undetected 08/09/2015 CMVQUANTPCR Undetected 07/15/2015 -Asp. Galactomannan weekly, starting after day 0. Lab Results Component Value Date GALACTO Negative 08/29/2015 -IgG every other week and repleted if falls <300 Lab Results Component Value Date IGG 526* 09/04/2015 Fluid/Nutrition/Lytes: #Nutrition: Low bacteria diet, TPN added 09/03 with decreased PO intake and worsening mucosi tis -adjusted for labs daily PRN #Fluid: None with TPN #Lytes: -Continue to check chemistries daily -Replace per supportive care protocol. Disposition: Pt with AML, adm for BuCy MMURD PBSCT. Anticipate 3-4 week hospitalization. YANNI Smith [address] Mailcode: [facility] [place] [address] Lobo Goins MD - 09/04/2015 4:22 PM PST Hematologic Malignancies/Bone Marrow Transplant Inpatient Attending Progress Note: Hospital course summary: Patient hospitalized with IV TPN, IV immunosuppression, IV pain medications I rounded today, 09/04/2015, in conjunction with YANNI Smith, the Advanced Practice P prema. I saw the patient, reviewed the history and relevant studies and developed an assessment an d plan. Subjective/Objective: Last Vitals: BP 117/59 | Pulse 58 | Temp 37.3 C (99.1 F) | RR 16 | Ht 1.873 m (6' 1.75") | Wt 80.151 kg (176 lb 11.2 oz) | SpO2 98% | BMI 22.85 kg/(m^2) 24 Hour Vital Min/Max: Systolic (24hrs), Av mmHg, Min:109 mmHg, Max:129 mmHg Diastolic (24hrs), Av mmHg, Min:59 mmHg, Max:77 mmHg Pulse Min: 58 Max: 72 Temp Min: 37 C (98.6 F) Max: 37.4 C (99.3 F) Resp Min: 14 Max: 16 SpO2 Min: 98 % Max: 100 % Intake/Output Summary (Last 24 hours) at 09/04/15 1622 Last data filed at 09/04/15 1527 Gross per 24 hour Intake 6576.98 ml Output 3425 ml Net 3151.98 ml Oral mucositis Neck supple Lungs clear Heart rrr s1s2 Results for KHURRAM KELLY ( ) as of 09/04/2015 16:21 Ref. Range 09/04/2015 00:14 09/04/2015 05:53 SODIUM, PLASMA (LAB) Latest Ref Range: 136-145 mmol/L 142 POTASSIUM, PLASMA (LAB) Latest Ref Range: 3.4-5.0 mmol/L 3.7 POTASSIUM CMNT Unknown No Hemo CHLORIDE, PLASMA (LAB) Latest Ref Range: 97-108 mmol/L 109 (H) TOTAL CO2, PLASMA (LAB) Latest Ref Range: 21-32 mmol/L 25 ANION GAP Latest Units: mmol/L 8 ANION GAP(ALB CORRECTED) Latest Ref Range: 4-11 mmol/L 11 BUN, PLASMA (LAB) Latest Ref Range: 6-20 mg/dL 8 CREATININE PLASMA (LAB) Latest Ref Range: 0.70-1.30 mg/dL 0.52 (L) EGFR - MEXICAN Latest Ref Range: >60 mL/min >60 EGFR NON -MEXICAN Latest Ref Range: >60 mL/min >60 GLUCOSE, PLASMA (LAB) Latest Ref Range: 60-99 mg/dL 102 (H) CALCIUM, PLASMA (LAB) Latest Ref Range: 8.6-10.2 mg/dL 7.5 (L) MAGNESIUM,PLASMA Latest Ref Range: 1.8-2.5 mg/dL 1.7 (L) PHOSPHORUS, PLASMA (LAB) Latest Ref Range: 2.4-4.7 mg/dL 3.3 AST(SGOT) Latest Ref Range: <=41 U/L 11 AST CMNT Unknown No Hemo ALT (SGPT) Latest Ref Range: <=60 U/L 26 ALK PHOS Latest Ref Range: 53-128 U/L 79 BILIRUBIN TOTAL Latest Ref Range: 0.3-1.2 mg/dL 0.4 BILI T CMNT Unknown No Hemo TOTAL PROTEIN, PLASMA (LAB) Latest Ref Range: 6.4-8.2 g/dL 5.5 (L) ALBUMIN, PLASMA (LAB) Latest Ref Range: 3.5-4.7 g/dL 2.6 (L) BLOOD GLUCOSE, POC Latest Ref Range: 60-99 mg/dL 130 (H) WHITE CELL COUNT Latest Ref Range: 4.40-11.00 K/cu mm <0.10 (L) RED CELL COUNT Latest Ref Range: 4.50-6.00 M/cu mm 2.62 (L) HEMOGLOBIN Latest Ref Range: 13.5-17.5 g/dL 7.6 (L) HEMATOCRIT Latest Ref Range: 41.0-53.0 % 21.3 (L) MCV Latest Ref Range: 80.0-96.0 fL 81.3 MCHC Latest Ref Range: 33.0-35.5 g/dL 35.7 RDW SD Latest Ref Range: 35.1-46.3 fL 36.4 PLATELET COUNT Latest Ref Range: 150-400 K/cu mm 14 (L) MPV Latest Ref Range: 9.7-12.3 fL 10.5 Please see the Advanced Practice Provider documentation from today for the details regardin g the assessment and plan. 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) CINV (chemotherapy-induced nausea and vomiting) Cellulitis Pancytopenia due to chemotherapy (HCC) Neutropenic fever (HCC) Mucositis due to chemotherapy Current Facility-Administered Medications Medication Dose Route Frequency acetaminophen (TYLENOL) tablet 325-650 mg 325-650 mg oral Q4H PRN [START ON 09/07/2015] acetaminophen (TYLENOL) tablet 650 mg 650 mg oral Q14D acyclovir (ZOVIRAX) 500 mg in NaCl 0.9 % IV 250 mg/m2 (Order-Specific) intravenous Q12 H ALPRAZolam (XANAX) tablet 1 mg 1 mg oral TID PRN alteplase (CATHFLO ACTIVASE) injection 2 mg 2 mg Intracatheter PRN aluminum-magnesium hydroxide-simethicone (MAALOX; MYLANTA) 200-200-20 mg/5 mL suspensio n 30 mL 30 mL oral Q3H PRN baclofen (LIORESAL) tablet 10 mg 10 mg oral TID PRN dextrose 50 % in water IV 25 mL 25 mL intravenous PRN diphenhydrAMINE (BENADRYL) capsule 25-50 mg 25-50 mg oral Q6H PRN [START ON 09/07/2015] diphenhydrAMINE (BENADRYL) injection 25 mg 25 mg intravenous Q14D diphenhydrAMINE (BENADRYL) injection 25-50 mg 25-50 mg intravenous Q4H PRN devhaghwbcDIHDL-orsreopzn-MHYALD (SPECIAL MOUTHWASH) suspension (compound) 10-15 mL 10 -15 mL oral Q1H PRN dronabinol (MARINOL) capsule 5 mg 5 mg oral BID AC fat emulsion (INTRALIPID) 20 % IV infusion 51 g 51 g intravenous TPN 2100 And parenteral nutrition (adult) intravenous TPN 2100 fat emulsion (INTRALIPID) 20 % IV infusion 51 g 51 g intravenous TPN 2100 And parenteral nutrition (adult) intravenous TPN 2100 [START ON 09/08/2015] filgrastim (NEUPOGEN) injection 480 mcg 5 mcg/kg (Treatment Plan A ctual) subcutaneous QPM AT 1700 fluconazole IV 400 mg IN NaCl (RTU) 400 mg intravenous Q24H glucagon (GLUCAGEN) injection 1 mg 1 mg intramuscular PRN glucose chewable tablet 16 g 16 g oral PRN glycerin-mineral oil (LUBRIDERM SENSITIVE LANOLIN FREE) lotion topical Q2H PRN haloperidol (HALDOL) tablet 0.5-2 mg 0.5-2 mg oral Q4H PRN haloperidol lactate (HALDOL) injection 0.5-2 mg 0.5-2 mg intravenous Q4H PRN heparin 10 unit/mL IV flush syringe 50 Units 50 Units intravenous PRN HYDROmorphone 25 mg in preservative free NaCl 0.9% 50 mL AUTOMATIC DRY STARCH OPERATOR infusion intravenous CON TINUOUS [START ON 09/07/2015] immune globulin (IGG) (GAMMAGARD LIQUID) IV 5% 15 g intravenous Q1 4D insulin lispro (HUMALOG) injection subcutaneous QID lactulose (ENULAC) liquid 10-20 g 15-30 mL oral TID PRN leucovorin injection 10 mg 10 mg intravenous Q6H loperamide (IMODIUM) capsule 2 mg 2 mg oral PRN LORazepam (ATIVAN) injection 0.5 mg 0.5 mg intravenous Q6H PRN Or LORazepam (ATIVAN) tablet 0.5 mg 0.5 mg oral Q6H PRN magnesium hydroxide (MILK OF MAGNESIA) suspension 30 mL 30 mL oral Q6H PRN magnesium sulfate in water IV (RTU) 4 g 4 g intravenous PRN magnesium sulfate IV 8 g 8 g intravenous PRN [START ON 09/07/2015] methotrexate (PF) injection 20 mg 20 mg intravenous ONCE nalOXone (NARCAN) injection intravenous PRN nystatin-zinc oxide-lidocaine (NDX) ointment (compound) topical Q1H PRN OLANZapine (ZYPREXA ZYDIS) disintegrating tablet 5-10 mg 5-10 mg oral HS omeprazole (PRILOSEC) capsule 40 mg 40 mg oral DAILY ondansetron (ZOFRAN) injection 4 mg 4 mg intravenous BID [START ON 09/20/2015] pentamidine (PENTAM) IV 300 mg 300 mg intravenous ONE TIME DURING VISIT piperacillin-tazobactam (ZOSYN) IV 4.5 g 4.5 g intravenous Q6H polyethylene glycol (MIRALAX) powder 17 g 17 g oral DAILY PRN potassium chloride IV (central line) 40 mEq 40 mEq intravenous PRN And potassium chloride IV (central line) 60 mEq 60 mEq intravenous PRN potassium chloride SR (K-DUR) tablet 40 mEq 40 mEq oral PRN potassium phosphate IV 30 mmol 30 mmol intravenous PRN And potassium phosphate IV 40 mmol 40 mmol intravenous PRN promethazine (PHENERGAN) injection 12.5-25 mg 12.5-25 mg intravenous Q6H PRN Or promethazine (PHENERGAN) tablet 12.5-25 mg 12.5-25 mg oral Q6H PRN ramelteon (ROZEREM) tablet 8 mg 8 mg oral HS PRN saliva substitute (MOUTH KOTE) spray 1 spray 1 spray oral Q1H PRN scopolamine (TRANSDERM-SCOPE) 1.5 mg (1 mg over 3 days) 1 patch 1 patch transdermal Q7 2H senna-docusate (SENOKOT S) 8.6-50 mg 1-2 tablet 1-2 tablet oral Q12H PRN sertraline (ZOLOFT) tablet 25 mg 25 mg oral DAILY sodium chloride (OCEAN) 0.65 % nasal spray 1 spray 1 spray nasal Q1H PRN sodium phosphate IV 30 mmol 30 mmol intravenous PRN sodium phosphate IV 40 mmol 40 mmol intravenous PRN tacrolimus IV intermittent (100 mL dilution) 1.4 mg intravenous Q12H ursodiol (ACTIGALL) capsule 300 mg 300 mg oral BID vancomycin (VANCOCIN) IV 1,750 mg 1,750 mg intravenous Q8H Mucositis on IV hydration and IV tpn gvhd on IV tacro Neutropenic fever on IV vanco and zosyn 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 Zach Rizzo [facility] Physician: Yari Garcia MD PCP: Pending Pcp ADDITION Date of Admission: 08/18/2015 Conditioning regimen: tBuCy Date of transplant: 08/27/2015 (Two Day 0's) Donor: MMURD Reason for admission: tBuCy [facility] for refractory AML 24-Hr Events/Daily Plan: -Refractory AML: Adm for BuCy MMURD with Tacro + long-course MTX IST. Currently Day +8 -Neutropenic Fever (first noted 08/30): Fever curve improving. 09/03 CXR clear, PanCx NGTD, switched Cefepime to Zosyn 09/03 with persistent fevers. Per pharmacy can only continue Zosy n until d/t interaction with MTX (recs to switch back to Cefepime and Flagyl x 48 hours at that time) -R Neck Trifusion infection s/p CVC removal on 08/22: Site no longer tender or erythematous. Continue Vancomycin (recommended through 08/31 per ID but will continue past this date for n ow as pt continues to be febrile) Replaced Trifusion on 08/26 prior to PBSCT -Pancytopenia d/t disease and chemo: Standard transfusion parameters. -Mucositis, grade 2 (noted 09/01): Continue mouth rinses. Remains on AUTOMATIC DRY STARCH OPERATOR and TPN. Leucovorin rescue ordrered on09/03/15. -CINV: Improved. No emesis. Continues Scop patch, scheduled Zofran, Marinol and Zyprexa. -Lytes: Standard replacement protocol. No repletion required -Nutrition: Took in only liquids- 3L. No solid foods Subjective: Feels he is doing better on AUTOMATIC DRY STARCH OPERATOR for pain control. Feels better today with impr ovement in fevers Objective: Last Vitals: BP 125/68 | Pulse 63 | Temp 37 C (98.6 F) | RR 16 | Ht 1.873 m (6' 1.75") | Wt 80.151 kg (176 lb 11.2 oz) | SpO2 100% | BMI 22.85 kg/(m^2) 24 Hour Vital Min/Max: Systolic (24hrs), Av mmHg, Min:109 mmHg, Max:127 mmHg Diastolic (24hrs), Av mmHg, Min:60 mmHg, Max:73 mmHg Pulse Min: 59 Max: 72 Temp Min: 37 C (98.6 F) Max: 37.4 C (99.3 F) Resp Min: 14 Max: 16 SpO2 Min: 99 % Max: 100 % Intake/Output Summary (Last 24 hours) at 09/04/15 1115 Last data filed at 09/04/15 0900 Gross per 24 hour Intake 7120.08 ml Output 3500 ml Net 3620.08 ml Physical Exam: General: This is a male in no acute distress. Sitting up in bed. HEENT: PERRL. Sclerae anicteric. Mucosa pink and moist with erythematous pharynx. Skin: No rash noted. R upper chest mild firmness near prior Trifusion insertion site Chest: Lungs clear to auscultation bilat. CV: RRR, no murmurs. Abdomen: S/NT/ND with NABS. No HSM appreciated. Extremities: Pulses strong and equal bilaterally. No c/c/e. Neuro: Alert and oriented x 3. Grossly nonfocal exam. CVC: LCW Trifusion in place w/o inflammation or induration. Dressing c/d/i Recent Labs 09/01/15 2300 09/02/15 2300 09/04/15 0014 09/04/15 0553 NA 136 137 142 -- K 3.4 3.7 3.7 -- CL 106 107 109* -- BICARB 25 -- BUN 11 10 8 -- CR 0.61* 0.68* 0.52* -- GLU 98 112* 102* 130* CA 7.9* 7.5* 7.5* -- AST 13 9 11 -- ALT 33 32 26 -- AP 65 92 79 -- TBILI 0.5 0.7 0.4 -- TP 5.9* 5.8* 5.5* -- ALB 2.9* 2.8* 2.6* -- Recent Labs 08/25/15 0028 08/26/15 0051 08/27/15 0436 09/01/15 2300 09/02/15 2300 09/04/15 0014 WBC 1.31* 0.83* -- 1.31* < > <0.10* <0.10* <0.10* RBC 2.66* 2.86* -- 2.89* < > 2.58* 2.86* 2.62* HB 7.7* 8.2* -- 8.4* < > 7.4* 8.2* 7.6* HCT 21.3* 23.2* -- 23.2* < > 20.7* 23.1* 21.3* PLT 25* 29* < > 70* < > 10* 7* 14* NEUTROPERC 70.6* 74.1* -- 72.2* -- -- -- -- LYMPHPERC 11.8* 11.1* -- 7.8* -- -- -- -- MONOPERC 17.6* 14.8* -- 16.5* -- -- -- -- BASOPERC 0.0 0.0 -- 0.0 -- -- -- -- EOSPERC 0.0* 0.0* -- 0.0* -- -- -- -- < > = values in this interval not displayed. 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 Treatment history: Khurram Kelly is a 25 y.o. CM [...] his L ankle. He was evaluated at [facility] ED on 06/[address] angiogram negative [...] recurrent fevers, pericarditis and CBC abnl, jazlyn millard was referred to Oncology for additional evaluation. Marrow studies completed on 05/19/15 s howed a hypercellular marrow (80-90%) with 86% of blast equivalents, comprised of myeloblast s, monoblasts and promonocytes. Concurrent flow cytometry detected 23% myeloid blasts and 60 % immature monocytic cells supporting this diagnosis. 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 He was referred to [facility] for further evaluation and man agement of his newly dx'd AML. Pt was admitted to [facility] on 05/26/15. Peripheral blood was [...] CD34, variable CD56, variable CD117, and dim [id number] mickey; promonocyte immunophenotype (70% by flow): CD11b, [...] No recurrence of oral cavity/upper chest pain. Hospitalization History: Hematology: #AML Conditioning regimen: tBuCy -Busulfan 1 mg/kg/dose PO every 6 hours on days -6, -5 and -4 -Clonazepam and Levetiracetam as prophylaxis for busulfan-induced seizures -Cyclophosphamide 60 mg/kg IV over 2 hours daily on days -3 and -2 -Mesna 60 mg/kg/day as a continuous infusion beginning just prior to the first dose of cy toxan and completing 24 hours after the second dose Stem cell transplant -Day: +8 -Tolerated MMURD stem cell product on 08/26-08/27 (Two Day 0's) without complications. CD 34 count = 5.96 x 10 6 per kg #Pancytopenia d/t disease and chemo -Antimicrobials as below -See supportive care #Supportive Care: Growth Factor: Due to begin daily Neupogen dosing on Day +12 (09/07) and continue until AN C > 1500 x 2 consecutive days. Labs: Continue to check CBC with diff daily Transfusion parameters: -Transfuse PRBCs for HCT <21% -Transfuse PPH for platelet count <10,000 or sooner for s/s active bleeding GVHD: No evidence of acute GvHD of the gut, liver or skin Prophylaxis: -Tacro starts on Day -2; Check levels twice weekly and PRN. PharmD to titrate to goal. Goa l level: 5-10 -MTX 15 mg/m2 IV x 1 on Day +1, then MTX 10 mg/m2 IV on Days +3, +6, and +11, Leucovorin r escue started Day +7 after Day +6 dose d/t mucositis. -No steroids unless he develops GvHD Staging: Skin: Grade 0 Gut: Grade 0 Liver: Grade 0 Overall stage: 0 Pulmonary: Pretransplant PFTs completed on 08/09/2015 showed FEV1 of 99% predicted, FVC of 110% predicted and DLCO of 82% predicted. No acute issues Cardiovascular: Pretransplant MUGA completed on 08/10/2015 showed a LVEF of 55-60%. #Risk for QTc Prolongation d/t -azoles, antiemetics -Check QTc PRN; Last QTc on 08/27 = 431 GI: #CINV - Improved since 08/29 -Marinol 5 mg BID qac -Zofran PO/IV q 12 hrs -Scop patch -Zyprexa 5 mg BID, increased 08/28 -Ativan, Haldol, Phenergan PRN (pt does not like Compazine) #Constipation, now with Diarrhea d/t treatment - (08/28) C. Diff neg. Senna Plus, Colace, La ctulose PRN COMMODITY SUPERVISOR -Imodium PRN #Mucositis, grade 2 (noted 09/01): worsening -Continue mouth rinses. -Morphine AUTOMATIC DRY STARCH OPERATOR started 09/03 -TPN started 09/03 -Leucovorin rescue after Day +6 MTX Neuro/Psych: #Depression - Zoloft COMMODITY SUPERVISOR -Zoloft 25 mg daily #Anxiety - Xanax PRN COMMODITY SUPERVISOR -Xanax 1 mg TID PRN Infectious Disease: #Neutropenic Fever (first noted on 08/30): CXR clear, BCx NGTD. Continues to be febrile 09/03 , repeat CXR 09/03 with clear lungs. -Cefepime (08/30-09/03) -Zosyn (09/03- ) with persistent fevers. Per pharmacy can only continue Zosyn until d/t interaction with MTX (at that time switch to Cefepime and Flagyl x 48 hours) #R Neck Trifusion infection s/p CVC removal on 08/22: Site less tender and erythematous -Vancomycin (08/21- ); recommended through 08/31 per ID but will continue past this date fo r now as pt remains febrile as of 09/02 -Replaced Trifusion on 08/26 prior to PBSCT -Follow BCx: NTD #Prophylaxis: Bacterial: ABx as above Fungal: Fluconazole started day 0 Viral: Valacyclovir started day +1; will switch to Acyclovir IV d/t mucositi, upon dischar ge will need oral therapy. PCP: Bactrim day of admission through day -1 then Pentamidine prior to discharge #Routine infectious disease testing -CMV by PCR weekly, starting after day 0. (Pt and donor CMV+) Lab Results Component Value Date CMVQUANTPCR Undetected 08/29/2015 CMVQUANTPCR Undetected 08/22/2015 CMVQUANTPCR Undetected 08/09/2015 CMVQUANTPCR Undetected 07/15/2015 -Asp. Galactomannan weekly, starting after day 0. Lab Results Component Value Date GALACTO Negative 08/29/2015 -IgG every other week and repleted if falls <300 Lab Results Component Value Date IGG 780 08/18/2015 Fluid/Nutrition/Lytes: #Nutrition: Low bacteria diet, TPN added 09/03 with decreased PO intake and worsening mucosi tis -adjusted for labs daily PRN #Fluid: None with TPN #Lytes: -Continue to check chemistries daily -Replace per supportive care protocol. Disposition: Pt with AML, adm for BuCy MMURD PBSCT. Anticipate 3-4 week hospitalization. YANNI Smith [facility] [address] [facility] Mailcode: [facility] [place] [address] henLamin MD,PhD - 09/03/2015 4:12 PM PSTHeme Malignancies/BMT I rounded today in conjunction with the Advanced Practice Provider I saw the patient, reviewed the history and relevant studies, and developed an assessment a nd plan. 25 M, refractory AML, admit for BuCy MISmatch allo-SCT, d0= 08/27 - d6 Mtx yesterday - continued fever - more mucositis - wbc 0.1 BMT - AML dx 05/2015, 46XY, +REM[place] mutation - s/p 3+7, refractory d14, then HAM, refractory, then decitabine - BMBx 60% blasts/promonos in 5% cellular marrow entering BMT - tBuCy prep - donor A antigen MISmatch - GCSF start d+12 GVHD - none to date - prophylaxis with long course Mtx + tacro ID - neutropenic fever 08/30, 09/02, 09/03 - switch zosyn 09/03- - vanco for line site infxn, 08/21- - s/p cefepime 08/30- - consider chest CT if fevers persist - fluconazole ppx - valtrex ppx Mucositis - leucovorin rescue - start AUTOMATIC DRY STARCH OPERATOR - start TPN Please see the ESTHELA documentation from today for details 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) CINV (chemotherapy-induced nausea and vomiting) Cellulitis Pancytopenia due to chemotherapy (HCC) Neutropenic fever (HCC) Mucositis due to chemotherapy Lamin Funes MD PhD etersonRobyn David, PLANT ASSIGNER - 09/03/2015 11:56 AM PST Daily NPP Note - [facility] Attending: Lamin Funes MD [facility] Physician: Yari Garcia MD PCP: Pending Pcp ADDITION Date of Admission: 08/18/2015 Conditioning regimen: tBuCy Date of transplant: 08/27/2015 (Two Day 0's) Donor: MMURD Reason for admission: tBuCy MMURD for refractory AML 24-Hr Events/Daily Plan: -Refractory AML: Adm for BuCy MMURD with Tacro + long-course MTX IST. Currently Day +7 -Neutropenic Fever (first noted 08/30): Remains febrile. 09/03 CXR clear, PanCx NGTD, switch ed Cefepime to Zosyn 09/03 with persistent fevers. Per pharmacy can only continue Zosyn until d/t interaction with MTX (recs to switch back to Cefepime and Flagyl x 48 hours at ange t time) -R Neck Trifusion infection s/p CVC removal on 08/22: Site no longer tender or erythematous. Continue Vancomycin (recommended through 08/31 per ID but will continue past this date for n ow as pt continues to be febrile) Replaced Trifusion on 08/26 prior to PBSCT -Pancytopenia d/t disease and chemo: Standard transfusion parameters, transfuse 1unit plate lets today. -Mucositis, grade 2 (noted 09/01): Continue mouth rinses. Started morphine AUTOMATIC DRY STARCH OPERATOR today. TPN st arted with decreased PO intake. Leucovorin rescue to start today after Day +6 MTX -CINV: Improved. No emesis. Continues Scop patch, scheduled Zofran, Marinol and Zyprexa. -Lytes: Standard replacement protocol. Replace magnesium today. Subjective: Worsening mouth pain this morning. Difficult to swallow. Objective: Last Vitals: BP 132/81 | Pulse 76 | Temp 38.1 C (100.6 F) | RR 16 | Ht 1.873 m (6' 1.75 ") | Wt 78.019 kg (172 lb) | SpO2 100% | BMI 22.24 kg/(m^2) 24 Hour Vital Min/Max: Systolic (24hrs), Av mmHg, Min:105 mmHg, Max:139 mmHg Diastolic (24hrs), Av mmHg, Min:50 mmHg, Max:83 mmHg Pulse Min: 57 Max: 86 Temp Min: 37 C (98.6 F) Max: 39.4 C (102.9 F) Resp Min: 16 Max: 24 SpO2 Min: 98 % Max: 100 % Intake/Output Summary (Last 24 hours) at 09/03/15 1157 Last data filed at 09/03/15 1111 Gross per 24 hour Intake 5441 ml Output 2875 ml Net 2566 ml Physical Exam: General: This is a male in no acute distress. Sitting up in bed. HEENT: PERRL. Sclerae anicteric. Mucosa pink and moist with erythematous pharynx. Skin: No rash noted. R upper chest mild firmness near prior Trifusion insertion site Chest: Lungs clear to auscultation bilat. CV: RRR, no murmurs. Abdomen: S/NT/ND with NABS. No HSM appreciated. Extremities: Pulses strong and equal bilaterally. No c/c/e. Neuro: Alert and oriented x 3. Grossly nonfocal exam. CVC: LCW Trifusion in place w/o inflammation or induration. Dressing c/d/i Recent Labs 08/31/15 23309/01/15 23009/02/15 2300 NA 138 136 137 K 3.9 3.4 3.7 CL 109* 106 107 BICARB 24 25 24 BUN 9 11 10 CR 0.54* 0.61* 0.68* GLU 104* 98 112* CA 8.1* 7.9* 7.5* AST 11 13 9 ALT 26 33 32 AP 62 65 92 TBILI 0.4 0.5 0.7 TP 6.0* 5.9* 5.8* ALB 3.0* 2.9* 2.8* Recent Labs 08/25/15 0028 08/26/15 0051 08/27/15 0436 08/31/15 2330 09/01/15 2300 09/02/15 2300 WBC 1.31* 0.83* -- 1.31* < > 0.11* <0.10* <0.10* RBC 2.66* 2.86* -- 2.89* < > 2.47* 2.58* 2.86* HB 7.7* 8.2* -- 8.4* < > 7.1* 7.4* 8.2* HCT 21.3* 23.2* -- 23.2* < > 19.8* 20.7* 23.1* PLT 25* 29* < > 70* < > 6* 10* 7* NEUTROPERC 70.6* 74.1* -- 72.2* -- -- -- -- LYMPHPERC 11.8* 11.1* -- 7.8* -- -- -- -- MONOPERC 17.6* 14.8* -- 16.5* -- -- -- -- BASOPERC 0.0 0.0 -- 0.0 -- -- -- -- EOSPERC 0.0* 0.0* -- 0.0* -- -- -- -- < > = values in this interval not displayed. 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 Treatment history: Khurram Kelly is a 25 y.o. CM with a PMH of pericarditis who was in his [facility] u ntil 03/13/15 (the night of his [...] his L ankle. He was evaluated at [facility] ED on 06/[address] angiogram negative [...] recurrent fevers, pericarditis and CBC abnl, jazlyn millard was referred to Oncology for additional evaluation. Marrow studies completed on 05/19/15 s howed a hypercellular marrow (80-90%) with 86% of blast equivalents, comprised of myeloblast s, monoblasts and promonocytes. Concurrent flow cytometry detected 23% myeloid blasts and 60 % immature monocytic cells supporting this diagnosis. 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 He was referred to [facility] for further evaluation and man agement of his newly dx'd AML. Pt was admitted to [facility] on 05/26/15. Peripheral blood was [...] CD34, variable CD56, variable CD117, and dim [id number]-wnipm mickey; promonocyte immunophenotype (70% by flow): CD11b, [...] No recurrence of oral cavity/upper chest pain. Hospitalization History: Hematology: #AML Conditioning regimen: tBuCy -Busulfan 1 mg/kg/dose PO every 6 hours on days -6, -5 and -4 -Clonazepam and Levetiracetam as prophylaxis for busulfan-induced seizures -Cyclophosphamide 60 mg/kg IV over 2 hours daily on days -3 and -2 -Mesna 60 mg/kg/day as a continuous infusion beginning just prior to the first dose of cy toxan and completing 24 hours after the second dose Stem cell transplant -Day: +7 -Tolerated MMURD stem cell product on 08/26-08/27 (Two Day 0's) without complications. CD 34 count = 5.96 x 10 6 per kg #Pancytopenia d/t disease and chemo -Antimicrobials as below -See supportive care #Supportive Care: Growth Factor: Due to begin daily Neupogen dosing on Day +12 (09/07) and continue until AN C > 1500 x 2 consecutive days. Labs: Continue to check CBC with diff daily Transfusion parameters: -Transfuse PRBCs for HCT <21% if asymptomatic OR <24% if symptomatic -Transfuse PPH for platelet count <10,000 or sooner for s/s active bleeding GVHD: None at this time Prophylaxis: -Tacro starts on Day -2; Check levels twice weekly and PRN. PharmD to titrate to goal. Goa l level: 5-10 -MTX 15 mg/m2 IV x 1 on Day +1, then MTX 10 mg/m2 IV on Days +3, +6, and +11, Leucovorin r escue started Day +7 after Day +6 dose d/t mucositis. -No steroids unless he develops GvHD Staging: Skin: Grade 0 Gut: Grade 0 Liver: Grade 0 Overall stage: 0 Pulmonary: Pretransplant PFTs completed on 08/09/2015 showed FEV1 of 99% predicted, FVC of 110% predicted and DLCO of 82% predicted. No acute issues Cardiovascular: Pretransplant MUGA completed on 08/10/2015 showed a LVEF of 55-60%. #Risk for QTc Prolongation d/t -azoles, antiemetics -Check QTc PRN; Last QTc on 08/27 = 431 GI: #CINV - Improved since 08/29 -Marinol 5 mg BID qac -Zofran PO/IV q 12 hrs -Scop patch -Zyprexa 5 mg BID, increased 08/28 -Ativan, Haldol, Phenergan PRN (pt does not like Compazine) #Constipation, now with Diarrhea d/t treatment - (08/28) C. Diff neg. Senna Plus, Colace, La ctulose PRN COMMODITY SUPERVISOR -Imodium PRN #Mucositis, grade 2 (noted 09/01): worsening -Continue mouth rinses. -Morphine AUTOMATIC DRY STARCH OPERATOR started 09/03 -TPN started 09/03 -Leucovorin rescue after Day +6 MTX Renal: No acute issues Musculoskeletal: No acute issues Neuro/Psych: #Depression - Zoloft COMMODITY SUPERVISOR -Zoloft 25 mg daily #Anxiety - Xanax PRN COMMODITY SUPERVISOR -Xanax 1 mg TID PRN Skin: No acute issues Endocrine: No acute issues Infectious Disease: #Neutropenic Fever (first noted on 08/30): CXR clear, BCx NGTD. Continues to be febrile 09/03 , repeat CXR 09/03 with clear lungs. -Cefepime (08/30-09/03) -Zosyn (09/03- ) with persistent fevers. Per pharmacy can only continue Zosyn until d/t interaction with MTX (at that time switch to Cefepime and Flagyl x 48 hours) #R Neck Trifusion infection s/p CVC removal on 08/22: Site less tender and erythematous -Vancomycin (08/21- ); recommended through 08/31 per ID but will continue past this date fo r now as pt remains febrile as of 2/25 -Replaced Trifusion on 08/26 prior to PBSCT -Follow BCx: NTD #Prophylaxis: Bacterial: ABx as above Fungal: Fluconazole started day 0 Viral: Valacyclovir started day +1; will switch to Acyclovir upon discharge and continue u ntil Day +365 PCP: Bactrim day of admission through day -1 then Pentamidine prior to discharge #Routine infectious disease testing -CMV by PCR weekly, starting after day 0. (Pt and donor CMV+) Lab Results Component Value Date CMVQUANTPCR Undetected 08/29/2015 CMVQUANTPCR Undetected 08/22/2015 CMVQUANTPCR Undetected 08/09/2015 CMVQUANTPCR Undetected 07/15/2015 -Asp. Galactomannan weekly, starting after day 0. Lab Results Component Value Date GALACTO Negative 08/29/2015 -IgG every other week and repleted if falls <300 Lab Results Component Value Date IGG 780 08/18/2015 Fluid/Nutrition/Lytes: #Nutrition: Low bacteria diet, TPN added 09/03 with decreased PO intake and worsening mucosi tis #Fluid: None with TPN #Lytes: -Continue to check chemistries daily -Replace per supportive care protocol. Disposition: Pt with AML, adm for BuCy MMURD PBSCT. Anticipate 3-4 week hospitalization. REBECCA Pérez NP [address] [facility] Mailcode: [id number] [place] [address] Lamin Espinal MD, PhD - 09/02/2015 3:27 PM PSTHeme Malignancies/BMT I rounded today in conjunction with the Advanced Practice Provider I saw the patient, reviewed the history and relevant studies, and developed an assessment a nd plan. 25 M, refractory AML, admit for BuCy MISmatch allo-SCT, d0= 08/27 - recurrent fever - mucositis worse on exam - wbc 0.1 - d6 Mtx today - start maint IVF - may need leucovorin tomorrow - reCxs PEND BMT - AML dx 05/2015, 46XY, +[place] mutation - s/p 3+7, refractory d14, then HAM, refractory, then decitabine - BMBx 60% blasts/promonos in 5% cellular marrow entering BMT - tBuCy prep - donor A antigen MISmatch - GCSF start d+12 GVHD - none to date - prophylaxis with long course Mtx + tacro ID - neutropenic fever 08/30, again 09/02 - cefepime 08/30- - vanco for line site infxn, 08/21- - fluconazole ppx - valtrex ppx Mucositis - prn antiemetics - IVF FEN - replace electrolytes per protocol N/V - sched antiemetics Please see the ESTHELA documentation from today for details 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) CINV (chemotherapy-induced nausea and vomiting) Cellulitis Pancytopenia due to chemotherapy (HCC) Neutropenic fever (HCC) Mucositis due to chemotherapy Lamin Funes MD PhD eRobyn stevens, PLANT ASSIGNER - 09/02/2015 10:51 AM PST Daily NPP Note - [facility] Attending: Lamin Funes MD [facility] Physician: Yari Garcia MD PCP: Pending Pcp ADDITION Date of Admission: 08/18/2015 Conditioning regimen: tBuCy Date of transplant: 08/27/2015 (Two Day 0's) Donor: MMURD Reason for admission: tBuCy MMURD for refractory AML 24-Hr Events/Daily Plan: -Refractory AML: Adm for BuCy MMURD with Tacro + long-course MTX IST. Currently Day +6. Due for MTX today -Neutropenic Fever (first noted 08/30): CXR clear, PanCx NGTD, Continue Cefepime as fevers continue. -R Neck Trifusion infection s/p CVC removal on 08/22: Site no longer tender or erythematous. -Continues Vancomycin (recommended through 08/31 per ID but will continue past this date fo r now as pt continues to be febrile) -Replaced Trifusion on 08/26 prior to PBSCT -Oxycodone PRN pain -Pancytopenia d/t disease and chemo: Standard transfusion parameters, transfuse 1unit PRBCs and 1unit platelets today. -Mucositis, grade 1 (noted 09/01): Continue mouth rinses, oxycodone PRN. Encouraged to take pain medications prior to meals. -CINV: Improved. No emesis, however low appetite only able to eat peaches and pears and dri nk 1.6L yesterday. -Continues Scop patch, scheduled Zofran, Marinol, Zyprexa -Ativan, Haldol, and Phenergan PRN, as pt does not like Compazine -Lytes: Standard replacement protocol. Replace magnesium and potassium today. Subjective: Feeling well this morning despite fevers overnight. Still have mouth and throa t pain with swallowing. Objective: Last Vitals: BP 131/69 | Pulse 81 | Temp 37.9 C (100.2 F) | RR 18 | Ht 1.873 m (6' 1.75 ") | Wt 78.019 kg (172 lb) | SpO2 99% | BMI 22.24 kg/(m^2) 24 Hour Vital Min/Max: Systolic (24hrs), Av mmHg, Min:118 mmHg, Max:139 mmHg Diastolic (24hrs), Av mmHg, Min:62 mmHg, Max:81 mmHg Pulse Min: 56 Max: 82 Temp Min: 37.3 C (99.1 F) Max: 39.4 C (102.9 F) Resp Min: 16 Max: 20 SpO2 Min: 99 % Max: 100 % Intake/Output Summary (Last 24 hours) at 09/02/15 1051 Last data filed at 09/02/15 0759 Gross per 24 hour Intake 2987 ml Output 2150 ml Net 837 ml Physical Exam: General: This is a male in no acute distress. Sitting in bed. HEENT: PERRL. Sclerae anicteric. Mucosa pink and moist without erythema or exudate. Skin: No rash noted. R upper chest mild firmness near prior Trifusion insertion site Chest: Lungs clear to auscultation bilat. CV: RRR, no murmurs. Abdomen: S/NT/ND with NABS. No HSM appreciated. Extremities: Pulses strong and equal bilaterally. No c/c/e. Neuro: Alert and oriented x 3. Grossly nonfocal exam. CVC: LCW Trifusion in place w/o inflammation or induration. Dressing c/d/i Recent Labs 08/30/15230708/31/[id number]/[id number] NA 140 138 136 K 3.8 3.9 3.4 CL 111* 109* 106 BICARB 24 25 BUN 7 9 11 CR 0.60* 0.54* 0.61* GLU 121* 104* 98 CA 8.1* 8.1* 7.9* AST 13 11 13 ALT 28 26 33 AP 67 62 65 TBILI 0.4 0.4 0.5 TP 6.3* 6.0* 5.9* ALB 3.2* 3.0* 2.9* Recent Labs 08/25/15 0028 08/26/15 0051 08/27/15 0436 08/30/[id number]/[id number] WBC 1.31* 0.83* -- 1.31* < > 0.16* 0.11* <0.10* RBC 2.66* 2.86* -- 2.89* < > 2.67* 2.47* 2.58* HB 7.7* 8.2* -- 8.4* < > 7.7* 7.1* 7.4* HCT 21.3* 23.2* -- 23.2* < > 21.5* 19.8* 20.7* PLT 25* 29* < > 70* < > 15* 6* 10* NEUTROPERC 70.6* 74.1* -- 72.2* -- -- -- -- LYMPHPERC 11.8* 11.1* -- 7.8* -- -- -- -- MONOPERC 17.6* 14.8* -- 16.5* -- -- -- -- BASOPERC 0.0 0.0 -- 0.0 -- -- -- -- EOSPERC 0.0* 0.0* -- 0.0* -- -- -- -- < > = values in this interval not displayed. Meds: Reviewed on rounds, see current MAR for medication list Past Medical History: Khurram Diamond Leticia is a 25 year old male admitted for initiation of pre-transplant conditioning with targeted busulfan and cytoxan prior to MM unrelated donor PBSCT for treatm ent of primary refractory AML. Treatment history: Khurram Kelly is a 25 y.o. CM [...] his L ankle. He was evaluated at [facility] ED on 06/[address] angiogram negative [...] leukemia. He was referred to [facility] for further evaluation and man agement of his newly dx'd AML. Pt was admitted to [facility] on 05/26/15. Peripheral blood was [...] CD34, variable CD56, variable CD117, and dim [id number] mickey; promonocyte immunophenotype (70% by flow): CD11b, [...] No recurrence of oral cavity/upper chest pain. Hospitalization History: Hematology: #AML Conditioning regimen: tBuCy -Busulfan 1 mg/kg/dose PO every 6 hours on days -6, -5 and -4 -Clonazepam and Levetiracetam as prophylaxis for busulfan-induced seizures -Cyclophosphamide 60 mg/kg IV over 2 hours daily on days -3 and -2 -Mesna 60 mg/kg/day as a continuous infusion beginning just prior to the first dose of cy toxan and completing 24 hours after the second dose Stem cell transplant -Day: +6 -Tolerated MMURD stem cell product on 08/26-08/27 (Two Day 0's) without complications. CD 34 count = 5.96 x 10 6 per kg #Pancytopenia d/t disease and chemo -Antimicrobials as below -See supportive care #Supportive Care: Growth Factor: Due to begin daily Neupogen dosing on Day +12 (09/07) and continue until AN C > 1500 x 2 consecutive days. Labs: Continue to check CBC with diff daily Transfusion parameters: -Transfuse PRBCs for HCT <21% if asymptomatic OR <24% if symptomatic -Transfuse PPH for platelet count <10,000 or sooner for s/s active bleeding GVHD: None at this time Prophylaxis: -Tacro starts on Day -2; Check levels twice weekly and PRN. PharmD to titrate to goal. Goa l level: 5-10 -MTX 15 mg/m2 IV x 1 on Day +1, then MTX 10 mg/m2 IV on Days +3, +6, and +11 -No steroids unless he develops GvHD Staging: Skin: Grade 0 Gut: Grade 0 Liver: Grade 0 Overall stage: 0 Pulmonary: Pretransplant PFTs completed on 08/09/2015 showed FEV1 of 99% predicted, FVC of 110% predicted and DLCO of 82% predicted. No acute issues Cardiovascular: Pretransplant MUGA completed on 08/10/2015 showed a LVEF of 55-60%. #Risk for QTc Prolongation d/t -azoles, antiemetics -Check QTc PRN; Last QTc on 08/27 = 431 GI: #CINV - Improved since 08/29 -Marinol 5 mg BID qac -Zofran PO/IV q 12 hrs -Scop patch -Zyprexa 5 mg BID, increased 08/28 -Ativan, Haldol, Phenergan PRN (pt does not like Compazine) #Constipation, now with Diarrhea d/t treatment - (08/28) C. Diff neg. Senna Plus, Colace, La ctulose PRN COMMODITY SUPERVISOR -Imodium PRN #Risk for Mucositis - Not an active issue -Continue oral care with normal saline rinses frequently Renal: No acute issues Musculoskeletal: No acute issues Neuro/Psych: #Depression - Zoloft COMMODITY SUPERVISOR -Zoloft 25 mg daily #Anxiety - Xanax PRN COMMODITY SUPERVISOR -Xanax 1 mg TID PRN Skin: No acute issues Endocrine: No acute issues Infectious Disease: #Neutropenic Fever (first noted on 08/30): CXR clear, BCx NGTD. Continues to be febrile 09/02 . -Cefepime (08/30- ) #R Neck Trifusion infection s/p CVC removal on 08/22: Site less tender and erythematous -Vancomycin (08/21- ); recommended through 08/31 per ID but will continue past this date fo r now as pt remains febrile as of 09/02 -Replaced Trifusion on 08/26 prior to PBSCT -Follow BCx: NTD -Oxycodone PRN for pain #Prophylaxis: Bacterial: ABx as above Fungal: Fluconazole started day 0 Viral: Valacyclovir started day +1; will switch to Acyclovir upon discharge and continue u ntil Day +365 PCP: Bactrim day of admission through day -1 then Pentamidine prior to discharge #Routine infectious disease testing -CMV by PCR weekly, starting after day 0. (Pt and donor CMV+) Lab Results Component Value Date CMVQUANTPCR Undetected 08/29/2015 CMVQUANTPCR Undetected 08/22/2015 CMVQUANTPCR Undetected 08/09/2015 CMVQUANTPCR Undetected 07/15/2015 -Asp. Galactomannan weekly, starting after day 0. Lab Results Component Value Date GALACTO Negative 08/29/2015 -IgG every other week and repleted if falls <300 Lab Results Component Value Date IGG 780 08/18/2015 Fluid/Nutrition/Lytes: #Nutrition: Low bacteria diet #Fluid: 1L NS bolus qhs PRN daily PO fluid intake <2L by 2200 #Lytes: -Continue to check chemistries daily -Replace per supportive care protocol. Disposition: Pt with AML, adm for BuCy MMURD PBSCT. Anticipate 3-4 week hospitalization. 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, +REMINGTON mutation - s/p 3+7, refractory d14, then HAM, refractory, then decitabine - BMBx 60% blasts/promonos in 5% cellular marrow entering BMT - tBuCy prep - donor A antigen MISmatch - GCSF start d+12 GVHD - none to date - prophylaxis with long course Mtx + tacro ID - neutropenic fever 08/30- - cefepime 08/30- - vanco for line site infxn, 08/21- - fluconazole ppx - valtrex ppx FEN - adequate po intake N/V - sched antiemetics Mucositis - oral care & pain control Lamin Funes MD PhD 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) CINV (chemotherapy-induced nausea and vomiting) Cellulitis Pancytopenia due to chemotherapy (HCC) Neutropenic fever (HCC) Mucositis due to chemotherapy More mouth discomfort Still taking in >2L po d6 Mtx tomorrow 24 Hour Vitals Temp Min: 36.6 C (97.9 F) Max: 37.4 C (99.3 F) Pulse Min: 52 Max: 66 Systolic (24hrs), Av mmHg, Min:114 mmHg, Max:139 mmHg Diastolic (24hrs), Av mmHg, Min:62 mmHg, Max:81 mmHg Resp Min: 16 Max: 16 SpO2 Min: 99 % Max: 100 % Intake/Output Summary (Last 24 hours) at 09/01/15 1810 Last data filed at 09/01/15 1600 Gross per 24 hour Intake 3520 ml Output 1600 ml Net 1920 ml General: no acute distress ENT: MILD/MOD MUCOSITIS Respiratory/Chest: Clear CV/heart: RRR GI/Abdomen: Soft, No masses Musculoskeletal/Extremities: No edema Skin: No rash Neuro: grossly non-focal Recent Labs 08/26/15 0051 08/27/15 0436 08/29/15 2300 08/30/15 2308 08/31/15 2330 WBC 0.83* -- 1.31* < > 0.20* 0.16* 0.11* HB 8.2* -- 8.4* < > 7.6* 7.7* 7.1* HCT 23.2* -- 23.2* < > 21.1* 21.5* 19.8* PLT 29* < > 70* < > 8* 15* 6* NEUTROPHILCO 0.62* -- 0.95* -- -- -- -- LYMPHSABS 0.09* -- 0.10* -- -- -- -- < > = values in this interval not displayed. Recent Labs 08/29/15 23008/30/15230708/31/15 2330 NA 140 140 138 K 3.9 3.8 3.9 BICARB 22 22 24 BUN 10 7 9 CR 0.64* 0.60* 0.54* GLU 109* 121* 104* CA 7.7* 8.1* 8.1* MG 1.8 1.4* 2.0 AP 63 67 62 ALT 31 28 26 AST 11 13 11 TBILI 0.4 0.4 0.4 ALB 3.2* 3.2* 3.0* LDTOTAL 146 -- -- hen, Lamin Parisi MD,PhD - 08/31/2015 6:17 PM PSTHeme Malignancies/BMT I rounded today in conjunction with the Advanced Practice Provider I saw the patient, reviewed the history and relevant studies, and developed an assessment a nd plan. 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, +REMINGTON mutation - s/p 3+7, refractory d14, then HAM, refractory, then decitabine - BMBx 60% blasts/promonos in 5% cellular marrow entering BMT - tBuCy prep - donor A antigen MISmatch - GCSF start d+12 GVHD - none to date - prophylaxis with long course Mtx + tacro ID - neutropenic fever 08/30- - cefepime 08/30- - vanco for line site infxn, 08/21- - fluconazole ppx - valtrex ppx FEN - adequate po intake N/V - sched antiemetics Please see the ESTHELA documentation from today for details 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) CINV (chemotherapy-induced nausea and vomiting) Cellulitis Pancytopenia due to chemotherapy (HCC) Neutropenic fever (HCC) Lamin Funes MD PhD Amira Dean TWISTING PRESS OPERATOR - 08/31/2015 12:10 PM PSTFormatting of this note might be different from the shanna valdes Daily NPP Note - Transplant [facility] Attending: Lamin Funes MD [facility] Physician: Yari Garcia MD PCP: Pending Pcp ADDITION Date of Admission: 08/18/2015 Conditioning regimen: tBuCy Date of transplant: 08/27/2015 (Two Day 0's) Donor: MMURD Reason for admission: tBuCy MMURD for refractory AML 24-Hr Events/Daily Plan: -Refractory AML: Adm for BuCy MMURD with Tacro + long-course MTX IST. Due for Day +6 MTX on , 09/02 -Neutropenic Fever (x1 on 08/30): CXR clear -Cefepime started 08/30 -Follow PanCx: NTD -R Neck Trifusion infection s/p CVC removal on 08/22: Site no longer tender or erythematous. -Continues Vancomycin (recommended through 08/31 per ID but will continue past this date fo r now as pt spiked fever on 08/30) -Replaced Trifusion on 08/26 prior to PBSCT -Follow BCx: NTD -Oxycodone PRN pain -Pancytopenia d/t disease and chemo: Standard transfusion parameters, no transfusions today -HypoMg: Repleted today. Repletions PRN per standard supportive care orders -CINV: Improved. No emesis and able to tolerate 50-100% of 3 small meals and drink 2L yeste rday. -Continues Scop patch, scheduled Zofran, Marinol, Zyprexa -Ativan, Haldol, and Phenergan PRN, as pt does not like Compazine -Diarrhea (note 08/27): Unchanged. (08/28) C. Diff neg. Imodium PRN Subjective: Less nauseated but still having diarrhea. No other issues. Objective: Last Vitals: BP 124/62 | Pulse 72 | Temp 37.8 C (100 F) | RR 16 | Ht 1.873 m (6' 1.75") | Wt 78.019 kg (172 lb) | SpO2 100% | BMI 22.24 kg/(m^2) 24 Hour Vital Min/Max: Systolic (24hrs), Av mmHg, Min:124 mmHg, Max:144 mmHg Diastolic (24hrs), Av mmHg, Min:62 mmHg, Max:73 mmHg Pulse Min: 57 Max: 72 Temp Min: 37.1 C (98.8 F) Max: 38.1 C (100.6 F) Resp Min: 16 Max: 16 SpO2 Min: 100 % Max: 100 % Intake/Output Summary (Last 24 hours) at 08/31/15 1210 Last data filed at 08/31/15 1100 Gross per 24 hour Intake 4749 ml Output 1375 ml Net 3374 ml Physical Exam: General: This is a male in no acute distress. Sitting upright in bed. HEENT: PERRL. Sclerae anicteric. Mucosa pink and moist without erythema or exudate. Skin: No rash noted. R upper chest mild firmness near prior Trifusion insertion site Chest: Lungs clear to auscultation bilat. CV: RRR, no murmurs. Abdomen: S/NT/ND with NABS. No HSM appreciated. Extremities: Pulses strong and equal bilaterally. No c/c/e. Neuro: Alert and oriented x 3. Grossly nonfocal exam. CVC: LCW Trifusion in place w/o inflammation or induration. Dressing c/d/i Recent Labs 08/29/15 0042 08/29/15 2300 08/30/15 2308 NA 141 140 140 K 4.2 3.9 3.8 CL 112* 112* 111* BICARB 22 22 22 BUN 12 10 7 CR 0.67* 0.64* 0.60* GLU 107* 109* 121* CA 7.9* 7.7* 8.1* AST 13 11 13 ALT 35 31 28 AP 69 63 67 TBILI 0.4 0.4 0.4 TP 6.3* 6.1* 6.3* ALB 3.2* 3.2* 3.2* Recent Labs 08/25/15 0028 08/26/15 0051 08/27/15 0436 08/29/15 0042 08/29/15 2300 08/30/15 2308 WBC 1.31* 0.83* -- 1.31* < > 0.29* 0.20* 0.16* RBC 2.66* 2.86* -- 2.89* < > 2.62* 2.59* 2.67* HB 7.7* 8.2* -- 8.4* < > 7.5* 7.6* 7.7* HCT 21.3* 23.2* -- 23.2* < > 21.0* 21.1* 21.5* PLT 25* 29* < > 70* < > 16* 8* 15* NEUTROPERC 70.6* 74.1* -- 72.2* -- -- -- -- LYMPHPERC 11.8* 11.1* -- 7.8* -- -- -- -- MONOPERC 17.6* 14.8* -- 16.5* -- -- -- -- BASOPERC 0.0 0.0 -- 0.0 -- -- -- -- EOSPERC 0.0* 0.0* -- 0.0* -- -- -- -- < > = values in this interval not displayed. 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 CM with a PMH of pericarditis who was in his [facility] u ntil 03/13/15 (the night of his [...] his L ankle. He was evaluated at [facility] ED on 06/[address] angiogram negative [...] recurrent fevers, pericarditis and CBC abnl, jazlyn millard was referred to Oncology for additional evaluation. Marrow studies completed on 05/19/15 s howed a hypercellular marrow (80-90%) with 86% of blast equivalents, comprised of myeloblast s, monoblasts and promonocytes. Concurrent flow cytometry detected 23% myeloid blasts and 60 % immature monocytic cells supporting this diagnosis. 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 He was referred to [facility] for further evaluation and man agement of his newly dx'd AML. Pt was admitted to [facility] on 05/26/15. Peripheral blood was [...] CD34, variable CD56, variable CD117, and dim [id number]-fymok mickey; promonocyte immunophenotype (70% by flow): CD11b, [...] No recurrence of oral cavity/upper chest pain. Hospitalization History: Hematology: #AML Conditioning regimen: tBuCy -Busulfan 1 mg/kg/dose PO every 6 hours on days -6, -5 and -4 -Clonazepam and Levetiracetam as prophylaxis for busulfan-induced seizures -Cyclophosphamide 60 mg/kg IV over 2 hours daily on days -3 and -2 -Mesna 60 mg/kg/day as a continuous infusion beginning just prior to the first dose of cy toxan and completing 24 hours after the second dose Stem cell transplant -Day: +4 -Tolerated MMURD stem cell product on 08/26-08/27 (Two Day 0's) without complications. CD 34 count = 5.96 x 10 6 per kg #Pancytopenia d/t disease and chemo -Antimicrobials as below -See supportive care #Supportive Care: Growth Factor: Due to begin daily Neupogen dosing on Day +12 (09/07) and continue until AN C > 1500 x 2 consecutive days. Labs: Continue to check CBC with diff daily Transfusion parameters: -Transfuse PRBCs for HCT <21% if asymptomatic OR <24% if symptomatic -Transfuse PPH for platelet count <10,000 or sooner for s/s active bleeding GVHD: None at this time Prophylaxis: -Tacro starts on Day -2; Check levels twice weekly and PRN. PharmD to titrate to goal. Goa l level: 5-10 -MTX 15 mg/m2 IV x 1 on Day +1, then MTX 10 mg/m2 IV on Days +3, +6, and +11 -No steroids unless he develops GvHD Staging: Skin: Grade 0 Gut: Grade 0 Liver: Grade 0 Overall stage: 0 Pulmonary: Pretransplant PFTs completed on 08/09/2015 showed FEV1 of 99% predicted, FVC of 110% predicted and DLCO of 82% predicted. No acute issues Cardiovascular: Pretransplant MUGA completed on 08/10/2015 showed a LVEF of 55-60%. #Risk for QTc Prolongation d/t -azoles, antiemetics -Check QTc PRN; Last QTc on 08/27 = 431 GI: #CINV - Improved since 08/29 -Marinol 5 mg BID qac -Zofran PO/IV q 12 hrs -Scop patch -Zyprexa 5 mg BID, increased 08/28 -Ativan, Haldol, Phenergan PRN (pt does not like Compazine) #Constipation, now with Diarrhea d/t treatment - (08/28) C. Diff neg. Senna Plus, Colace, La ctulose PRN COMMODITY SUPERVISOR -Imodium PRN #Risk for Mucositis - Not an active issue -Continue oral care with normal saline rinses frequently Renal: No acute issues Musculoskeletal: No acute issues Neuro/Psych: #Depression - Zoloft COMMODITY SUPERVISOR -Zoloft 25 mg daily #Anxiety - Xanax PRN COMMODITY SUPERVISOR -Xanax 1 mg TID PRN Skin: No acute issues Endocrine: No acute issues Infectious Disease: #Neutropenic Fever (x1 on 08/30): CXR clear -Cefepime (08/30- ) -Follow PanCx: NTD #R Neck Trifusion infection s/p CVC removal on 08/22: Site less tender and erythematous -Vancomycin (08/21- ); recommended through 08/31 per ID but will continue past this date fo r now as pt spiked fever on 08/30 -Replaced Trifusion on 08/26 prior to PBSCT -Follow BCx: NTD -Oxycodone PRN for pain #Prophylaxis: Bacterial: Levofloxacin started day -1 -For first neutropenic fever, preciado cx, CXR, d/c Levofloxacin and begin Cefepime for empiric broadspectrum coverage. Fungal: Fluconazole started day 0 Viral: Valacyclovir started day +1; will switch to Acyclovir upon discharge and continue u ntil Day +365 PCP: Bactrim day of admission through day -1 then Pentamidine prior to discharge #Routine infectious disease testing -CMV by PCR weekly, starting after day 0. (Pt and donor CMV+) Lab Results Component Value Date CMVQUANTPCR Undetected 08/29/2015 CMVQUANTPCR Undetected 08/22/2015 CMVQUANTPCR Undetected 08/09/2015 CMVQUANTPCR Undetected 07/15/2015 -Asp. Galactomannan weekly, starting after day 0. Lab Results Component Value Date GALACTO Negative 08/29/2015 -IgG every other week and repleted if falls <300 Lab Results Component Value Date IGG 780 08/18/2015 Fluid/Nutrition/Lytes: #Nutrition: Low bacteria diet #Fluid: 1L NS bolus qhs PRN daily PO fluid intake <2L by 2200 #Lytes: -Continue to check chemistries daily -Replace per supportive care protocol. Disposition: Pt with AML, adm for BuCy MMURD PBSCT. Anticipate 3-4 week hospitalization. ORLY Bianchi [facility] [id number] [facility] Mailcode: [id number] [place] [address] Lamin Espinal MD,PhD - 08/30/2015 7:12 PM PSTHeme Malignancies/BMT I rounded today in conjunction with the Advanced Practice Provider I saw the patient, reviewed the history and relevant studies, and developed an assessment a nd plan. 25 M, refractory AML, admit for BuCy URD allo-SCT, d0= 08/27 - N/V & diarrhea better - first fever, start cefepime - wbc 0.2 BMT - AML dx 05/2015, 46XY, +REM[place] mutation - s/p 3+7, refractory d14, then HAM, refractory, then decitabine - BMBx 60% blasts/promonos in 5% cellular marrow entering BMT - tBuCy prep - donor A antigen MISmatch - GCSF start d+12 GVHD - none to date - prophylaxis with long course Mtx + tacro ID - neutropenic fever 08/30- - cefepime 08/30- - vanco for line site infxn, 08/21- - fluconazole ppx - valtrex ppx FEN - maint IVF N/V - sched antiemetics Please see the ESTHELA documentation from today for details 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) CINV (chemotherapy-induced nausea and vomiting) Cellulitis Pancytopenia due to chemotherapy (HCC) Neutropenic fever (HCC) Lamin Funes MD PhD rAmira cee, TWISTING PRESS OPERATOR - 08/30/2015 10:32 AM PSTFormatting of this note might be different from the shanna valdes Daily NPP Note - Transplant Ad[facility] Attending: Lamin Funes MD [facility] Physician: Yari Garcia MD PCP: Pending Pcp ADDITION Date of Admission: 08/18/2015 Conditioning regimen: tBuCy Date of transplant: 08/27/2015 (Two Day 0's) Donor: MMURD Reason for admission: tBuCy MMURD for refractory AML 24-Hr Events/Daily Plan: -Refractory AML: Adm for BuCy MMURD with Tacro + long-course MTX IST. Will receive Day +3 M TX today. -R Neck Trifusion infection s/p CVC removal on 08/22: Site less tender and erythematous over all. -Continues Vancomycin x10 days after line removal (through 08/31) -Replaced Trifusion on 08/26 prior to PBSCT -Follow BCx: NTD -Oxycodone PRN pain -Pancytopenia d/t disease and chemo: Transfused 1 PPH today -Lytes: WNL. Repletions PRN per standard supportive care orders -CINV: Improved. No emesis and able to tolerate 100% of 1 meal and drink 2.6L yesterday. -OK to stop MIVF today -Continues Scop patch, scheduled Zofran, Marinol, Zyprexa -Ativan, Haldol, and Phenergan PRN, as pt does not like Compazine -Diarrhea (note 08/27): Improving. (08/28) C. Diff neg. Imodium PRN Subjective: Less nauseated and sleeping better lately. Not having as much diarrhea Objective: Last Vitals: BP 113/55 | Pulse 52 | Temp 37.4 C (99.3 F) | RR 16 | Ht 1.873 m (6' 1.75" ) | Wt 78.699 kg (173 lb 8 oz) | SpO2 100% | BMI 22.43 kg/(m^2) 24 Hour Vital Min/Max: Systolic (24hrs), Av mmHg, Min:111 mmHg, Max:131 mmHg Diastolic (24hrs), Av mmHg, Min:55 mmHg, Max:78 mmHg Pulse Min: 52 Max: 68 Temp Min: 36.2 C (97.2 F) Max: 37.5 C (99.5 F) Resp Min: 16 Max: 18 SpO2 Min: 100 % Max: 100 % Intake/Output Summary (Last 24 hours) at 08/30/15 1032 Last data filed at 08/30/15 0648 Gross per 24 hour Intake 4552 ml Output 1900 ml Net 2652 ml Physical Exam: General: This is a male in no acute distress. Sitting up in bed. HEENT: PERRL. Sclerae anicteric. Mucosa pink and moist without erythema or exudate. Skin: No rash noted. R upper chest mild erythema/firm near prior Trifusion insertion site Chest: Lungs clear to auscultation bilat. CV: RRR, no murmurs. Abdomen: S/NT/ND with NABS. No HSM appreciated. Extremities: Pulses strong and equal bilaterally. No c/c/e. Neuro: Alert and oriented x 3. Grossly nonfocal exam. CVC: LCW Trifusion in place w/o inflammation or induration. Dressing c/d/i Recent Labs 08/28/15 0121 08/29/15 0042 08/29/15 2300 NA 137 141 140 K 3.8 4.2 3.9 CL 106 112* 112* BICARB 22 22 22 BUN 13 12 10 CR 0.57* 0.67* 0.64* GLU 116* 107* 109* CA 8.6 7.9* 7.7* AST 12 13 11 ALT 34 35 31 AP 80 69 63 TBILI 0.6 0.4 0.4 TP 6.9 6.3* 6.1* ALB 3.6 3.2* 3.2* Recent Labs 08/25/15 0028 08/26/15 0051 08/27/15 0436 08/28/15 0121 08/29/15 0042 08/29/15 2300 WBC 1.31* 0.83* -- 1.31* 0.42* 0.29* 0.20* RBC 2.66* 2.86* -- 2.89* 2.86* 2.62* 2.59* HB 7.7* 8.2* -- 8.4* 8.2* 7.5* 7.6* HCT 21.3* 23.2* -- 23.2* 22.6* 21.0* 21.1* PLT 25* 29* < > 70* 37* 16* 8* NEUTROPERC 70.6* 74.1* -- 72.2* -- -- -- LYMPHPERC 11.8* 11.1* -- 7.8* -- -- -- MONOPERC 17.6* 14.8* -- 16.5* -- -- -- BASOPERC 0.0 0.0 -- 0.0 -- -- -- EOSPERC 0.0* 0.0* -- 0.0* -- -- -- < > = values in this interval not displayed. 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 He was evaluated at [facility] ED on 06/[address] angiogram negative [...] leukemia. He was referred to [facility] for further evaluation and man agement of his newly dx'd AML. Pt was admitted to [facility] on 05/26/15. Peripheral blood was [...] CD34, variable CD56, variable CD117, and dim [id number] mickey; promonocyte immunophenotype (70% by flow): CD11b, [...] No recurrence of oral cavity/upper chest pain. Hospitalization History: Hematology: #AML Conditioning regimen: tBuCy -Busulfan 1 mg/kg/dose PO every 6 hours on days -6, -5 and -4 -Clonazepam and Levetiracetam as prophylaxis for busulfan-induced seizures -Cyclophosphamide 60 mg/kg IV over 2 hours daily on days -3 and -2 -Mesna 60 mg/kg/day as a continuous infusion beginning just prior to the first dose of cy toxan and completing 24 hours after the second dose Stem cell transplant -Day: +3 -Tolerated MMURD stem cell product on 08/26-08/27 (Two Day 0's) without complications. CD 34 count = 5.96 x 10 6 per kg #Pancytopenia d/t disease and chemo -Antimicrobials as below -See supportive care #Supportive Care: Growth Factor: Due to begin daily Neupogen dosing on Day +12 (09/07) and continue until AN C > 1500 x 2 consecutive days. Labs: Continue to check CBC with diff daily Transfusion parameters: -Transfuse PRBCs for HCT <21% if asymptomatic OR <24% if symptomatic -Transfuse PPH for platelet count <10,000 or sooner for s/s active bleeding GVHD: None at this time Prophylaxis: -Tacro starts on Day -2; Check levels twice weekly and PRN. PharmD to titrate to goal. Goa l level: 5-10 -MTX 15 mg/m2 IV x 1 on Day +1, then MTX 10 mg/m2 IV on Days +3, +6, and +11 -No steroids unless he develops GvHD Staging: Skin: Grade 0 Gut: Grade 0 Liver: Grade 0 Overall stage: 0 Pulmonary: Pretransplant PFTs completed on 08/09/2015 showed FEV1 of 99% predicted, FVC of 110% predicted and DLCO of 82% predicted. No acute issues Cardiovascular: Pretransplant MUGA completed on 08/10/2015 showed a LVEF of 55-60%. #Risk for QTc Prolongation d/t -azoles, antiemetics -Check QTc PRN; Last QTc on 08/27 = 431 GI: #CINV - Improved starting 08/29 -Marinol 5 mg BID qac -Zofran PO/IV q 12 hrs -Scop patch -Zyprexa 5 mg BID, increased 08/28 -Ativan, Haldol, Phenergan PRN (pt does not like Compazine) -MIVF as below #Constipation, now with Diarrhea d/t treatment - (08/28) C. Diff neg. Senna Plus, Colace, La ctulose PRN COMMODITY SUPERVISOR -Imodium PRN #Risk for Mucositis - Not an active issue -Continue oral care with normal saline rinses frequently Renal: No acute issues Musculoskeletal: No acute issues Neuro/Psych: #Depression - Zoloft COMMODITY SUPERVISOR -Zoloft 25 mg daily #Anxiety - Xanax PRN COMMODITY SUPERVISOR -Xanax 1 mg TID PRN Skin: No acute issues Endocrine: No acute issues Infectious Disease: #R Neck Trifusion infection s/p CVC removal on 08/22: Site less tender and erythematous -Vancomycin (08/21- ) continue x10 days after line removal (through 08/31) per ID recs -Replaced Trifusion on 08/26 prior to PBSCT -Follow BCx: NTD -Oxycodone PRN for pain #Prophylaxis: Bacterial: Levofloxacin started day -1 -For first neutropenic fever, preciado cx, CXR, d/c Levofloxacin and begin Cefepime for empiric broadspectrum coverage. Fungal: Fluconazole started day 0 Viral: Valacyclovir started day +1; will switch to Acyclovir upon discharge and continue u ntil Day +365 PCP: Bactrim day of admission through day -1 then Pentamidine prior to discharge #Routine infectious disease testing -CMV by PCR weekly, starting after day 0. (Pt and donor CMV+) Lab Results Component Value Date CMVQUANTPCR Undetected 08/22/2015 CMVQUANTPCR Undetected 08/09/2015 CMVQUANTPCR Undetected 07/15/2015 -Asp. Galactomannan weekly, starting after day 0. Lab Results Component Value Date GALACTO Negative 08/22/2015 -IgG every other week and repleted if falls <300 Lab Results Component Value Date IGG 780 08/18/2015 Fluid/Nutrition/Lytes: #Nutrition: Low bacteria diet #Fluid: 1L NS bolus qhs PRN daily PO fluid intake <2L by 2200 #Lytes: -Continue to check chemistries daily -Replace per supportive care protocol. Disposition: Pt with AML, adm for BuCy MMURD PBSCT. Anticipate 3-4 week hospitalization. ORLY Bianchi [place] [id number] [facility] Mailcode: [id number] [place], [place] [id number] Lamin Espinal MD,PhD - 08/29/2015 2:30 PM PSTHeme Malignancies/BMT I rounded today in conjunction with the Advanced Practice Provider I saw the patient, reviewed the history and relevant studies, and developed an assessment a nd plan. 25 M, refractory AML, admit for BuCy URD allo-SCT, d0= 08/27 - N/V better - no fever - R chest wall line site much improved - wbc 0.2 BMT - AML dx 05/2015, 46XY, +REMINGTON mutation - s/p 3+7, refractory d14, then HAM, refractory, then decitabine - BMBx 60% blasts/promonos in 5% cellular marrow entering BMT - tBuCy prep - donor A antigen MISmatch - GCSF start d+12 GVHD - none to date - prophylaxis with long course Mtx + tacro ID - vanco for line site infxn, 08/21- - no fever to date - levoflox ppx - fluconazole ppx - valtrex ppx FEN - IVF due to severe N/V N/V - marinol + olanzapine + scopolamine + zofran Please see the ESTHELA documentation from today for details 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) CINV (chemotherapy-induced nausea and vomiting) Cellulitis Pancytopenia due to chemotherapy (HCC) Lamin Funes MD PhD mira Lundy TWISTING PRESS OPERATOR - 08/29/2015 8:14 AM PSTFormatting of this note might be different from the shanna valdes Daily NPP Note - [facility] Attending: Lamin Funes MD [facility] Physician: Yari Garcia MD PCP: Pending Pcp ADDITION Date of Admission: 08/18/2015 Conditioning regimen: tBuCy Date of transplant: 08/27/2015 (Two Day 0's) Donor: MMURD Reason for admission: tBuCy MMURD for refractory AML 24-Hr Events/Daily Plan: -Refractory AML: Adm for BuCy MMURD with Tacro + long-course MTX IST. Due for Day +3 MTX to estrella. -R Neck Trifusion infection s/p CVC removal on 08/22: Site less tender and erythematous over all. -Continues Vancomycin x10 days after line removal (through 08/31) -Replaced Trifusion on 08/26 prior to PBSCT -Follow BCx: NTD -Oxycodone PRN pain -Pancytopenia d/t disease and chemo: Above standard transfusion threshold -HypoMg: Repletions per standard supportive care orders -CINV: Improved. No emesis and reece to tolerate 75% of 1 meal and drink 500 mL yesterday. -Continue MIVF for now -Continues Scop patch, scheduled Zofran, Marinol, Zyprexa -Ativan, Haldol, and Phenergan PRN, as pt does not like Compazine -Diarrhea (note 08/27): Persists. (08/28) C. Diff neg. Imodium PRN Subjective: Less nauseated and able to sleep last night. Objective: Last Vitals: BP 125/75 | Pulse 64 | Temp 37.3 C (99.1 F) | RR 16 | Ht 1.873 m (6' 1.75" ) | Wt 80 kg (176 lb 5.9 oz) | SpO2 100% | BMI 22.8 kg/(m^2) 24 Hour Vital Min/Max: Systolic (24hrs), Av mmHg, Min:110 mmHg, Max:159 mmHg Diastolic (24hrs), Av mmHg, Min:60 mmHg, Max:83 mmHg Pulse Min: 64 Max: 95 Temp Min: 36.7 C (98.1 F) Max: 37.8 C (100 F) Resp Min: 14 Max: 16 SpO2 Min: 99 % Max: 100 % Intake/Output Summary (Last 24 hours) at 08/29/15 0814 Last data filed at 08/29/15 0753 Gross per 24 hour Intake 4351.25 ml Output 3275 ml Net 1076.25 ml Physical Exam: General: This is a male in no acute distress. Sitting up at bottom of bed. HEENT: PERRL. Sclerae anicteric. Mucosa pink and moist without erythema or exudate. Skin: No rash noted. R upper chest mild erythema near prior Trifusion insertion site with mild edema. Chest: Lungs clear to auscultation bilat. CV: RRR, no murmurs. Abdomen: S/NT/ND with NABS. No HSM appreciated. Extremities: Pulses strong and equal bilaterally. No c/c/e. Neuro: Alert and oriented x 3. Grossly nonfocal exam. CVC: LCW Trifusion in place w/o inflammation or induration. Dressing c/d/i Recent Labs 08/27/15 0436 08/28/15 0121 08/29/15 0042 NA 138 137 141 K 4.0 3.8 4.2 CL 108 106 112* BICARB 23 22 22 BUN 12 13 12 CR 0.78 0.57* 0.67* GLU 98 116* 107* CA 8.8 8.6 7.9* AST 18 12 13 ALT 36 34 35 AP 85 80 69 TBILI 0.5 0.6 0.4 TP 6.7 6.9 6.3* ALB 3.5 3.6 3.2* Recent Labs 08/25/15 0028 08/26/15 0051 08/27/15 0436 08/28/15 0121 08/29/15 0042 WBC 1.31* 0.83* -- 1.31* 0.42* 0.29* RBC 2.66* 2.86* -- 2.89* 2.86* 2.62* HB 7.7* 8.2* -- 8.4* 8.2* 7.5* HCT 21.3* 23.2* -- 23.2* 22.6* 21.0* PLT 25* 29* < > 70* 37* 16* NEUTROPERC 70.6* 74.1* -- 72.2* -- -- LYMPHPERC 11.8* 11.1* -- 7.8* -- -- MONOPERC 17.6* 14.8* -- 16.5* -- -- BASOPERC 0.0 0.0 -- 0.0 -- -- EOSPERC 0.0* 0.0* -- 0.0* -- -- < > = values in this interval not displayed. 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 He was evaluated at [facility] ED on 06/[address] angiogram negative [...] recurrent fevers, pericarditis and CBC abnl, jazlyn millard was referred to Oncology for additional evaluation. Marrow studies completed on 05/19/15 s howed a hypercellular marrow (80-90%) with 86% of blast equivalents, comprised of myeloblast s, monoblasts and promonocytes. Concurrent flow cytometry detected 23% myeloid blasts and 60 % immature monocytic cells supporting this diagnosis. 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 He was referred to [facility] for further evaluation and man agement of his newly dx'd AML. Pt was admitted to [facility] on 05/26/15. Peripheral blood was [...] CD34, variable CD56, variable CD117, and dim [id number] mickey; promonocyte immunophenotype (70% by flow): CD11b, [...] No recurrence of oral cavity/upper chest pain. Hospitalization History: Hematology: #AML Conditioning regimen: tBuCy -Busulfan 1 mg/kg/dose PO every 6 hours on days -6, -5 and -4 -Clonazepam and Levetiracetam as prophylaxis for busulfan-induced seizures -Cyclophosphamide 60 mg/kg IV over 2 hours daily on days -3 and -2 -Mesna 60 mg/kg/day as a continuous infusion beginning just prior to the first dose of cy toxan and completing 24 hours after the second dose Stem cell transplant -Day: +2 -Tolerated MMURD stem cell product on 08/26-08/27 (Two Day 0's) without complications. CD 34 count = 5.96 x 10 6 per kg #Pancytopenia d/t disease and chemo -Antimicrobials as below -See supportive care #Supportive Care: Growth Factor: Due to begin daily Neupogen dosing on Day +12 (09/07) and continue until AN C > 1500 x 2 consecutive days. Labs: Continue to check CBC with diff daily Transfusion parameters: -Transfuse PRBCs for HCT <21% if asymptomatic OR <24% if symptomatic -Transfuse PPH for platelet count <10,000 or sooner for s/s active bleeding GVHD: None at this time Prophylaxis: -Tacro starts on Day -2; Check levels twice weekly and PRN. PharmD to titrate to goal. Goa l level: 5-10 -MTX 15 mg/m2 IV x 1 on Day +1, then MTX 10 mg/m2 IV on Days +3, +6, and +11 -No steroids unless he develops GvHD Staging: Skin: Grade 0 Gut: Grade 0 Liver: Grade 0 Overall stage: 0 Pulmonary: Pretransplant PFTs completed on 08/09/2015 showed FEV1 of 99% predicted, FVC of 110% predicted and DLCO of 82% predicted. No acute issues Cardiovascular: Pretransplant MUGA completed on 08/10/2015 showed a LVEF of 55-60%. #Risk for QTc Prolongation d/t -azoles, antiemetics -Check QTc PRN; Last QTc on 08/27 = 431 GI: #CINV - Improved starting 08/29 -Marinol 5 mg BID qac -Zofran PO/IV q 12 hrs -Scop patch -Zyprexa 5 mg BID, increased 08/28 -Ativan, Haldol, Phenergan PRN (pt does not like Compazine) -MIVF as below #Constipation, now with Diarrhea d/t treatment - (08/28) C. Diff neg. Senna Plus, Colace, La ctulose PRN COMMODITY SUPERVISOR -Imodium PRN #Risk for Mucositis - Not an active issue -Continue oral care with normal saline rinses frequently Renal: No acute issues Musculoskeletal: No acute issues Neuro/Psych: #Depression - Zoloft COMMODITY SUPERVISOR -Zoloft 25 mg daily #Anxiety - Xanax PRN COMMODITY SUPERVISOR -Xanax 1 mg TID PRN Skin: No acute issues Endocrine: No acute issues Infectious Disease: #R Neck Trifusion infection s/p CVC removal on 08/22: Site less tender and erythematous -Vancomycin (08/21- ) continue x10 days after line removal (through 08/31) per ID recs -Replaced Trifusion on 08/26 prior to PBSCT -Follow BCx: NTD -Oxycodone PRN for pain #Prophylaxis: Bacterial: Levofloxacin started day -1 -For first neutropenic fever, preciado cx, CXR, d/c Levofloxacin and begin Cefepime for empiric broadspectrum coverage. Fungal: Fluconazole started day 0 Viral: Valacyclovir started day +1; will switch to Acyclovir upon discharge and continue u ntil Day +365 PCP: Bactrim day of admission through day -1 then Pentamidine prior to discharge #Routine infectious disease testing -CMV by PCR weekly, starting after day 0. (Pt and donor CMV+) Lab Results Component Value Date CMVQUANTPCR Undetected 08/22/2015 CMVQUANTPCR Undetected 08/09/2015 CMVQUANTPCR Undetected 07/15/2015 -Asp. Galactomannan weekly, starting after day 0. Lab Results Component Value Date GALACTO Negative 08/22/2015 -IgG every other week and repleted if falls <300 Lab Results Component Value Date IGG 780 08/18/2015 Fluid/Nutrition/Lytes: #Nutrition: Low bacteria diet #Fluid: NS @ 75 mL/hr d/t decreased PO intake and N/V/D #Lytes: -Continue to check chemistries daily -Replace per supportive care protocol. Disposition: Pt with AML, adm for BuCy MMURD PBSCT. Anticipate 3-4 week hospitalization. ORLY Bianchi [address] [facility] Mailcode: [id number] [place] [address] Lamin Espinal MD,PhD - 08/28/2015 2:23 PM PSTHeme Malignancies/BMT I rounded today in conjunction with the Advanced Practice Provider I saw the patient, reviewed the history and relevant studies, and developed an assessment a nd plan. 25 M, refractory AML, admit for BuCy URD allo-SCT, d0= 08/27 - received d1 Mtx early this am - significant N/V - no fever BMT - AML dx 05/2015, 46XY, +REM[place] mutation - s/p 3+7, refractory d14, then HAM, refractory, then decitabine - BMBx 60% blasts/promonos in 5% cellular marrow entering BMT - tBuCy prep - donor A antigen MISmatch GVHD - none to date - prophylaxis with long course Mtx + tacro ID - no fever to date - levoflox ppx - fluconazole ppx - valtrex ppx FEN - IVF due to severe N/V N/V - marinol + olanzapine + scopolamine + zofran Please see the ESTHELA documentation from today for details 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) CINV (chemotherapy-induced nausea and vomiting) Lamin Funes MD PhD rAmira cee TWISTING PRESS OPERATOR - 08/28/2015 8:55 AM PSTFormatting of this note might be different from the shanna valdes Daily NPP Note - [facility] Attending: Lamin Funes MD [facility] Physician: Yari Garcia MD PCP: Pending Pcp ADDITION Date of Admission: 08/18/2015 Conditioning regimen: tBuCy Date of transplant: 08/27/2015 (Two Day 0's) Donor: MMURD Reason for admission: tBuCy MMURD for refractory AML 24-Hr Events/Daily Plan: -Refractory AML: Adm for BuCy MMURD with Tacro + long-course MTX IST. Two Day 0's as cells completed @ 0130. Received Day +1 MTX @ 0130. -R Neck Trifusion infection s/p CVC removal on 08/22: Site less tender and erythematous over all. -Continues Vancomycin -Replaced Trifusion on 08/26 prior to PBSCT -Follow BCx: NTD -Oxycodone PRN pain -Pancytopenia d/t disease and chemo: Above standard transfusion threshold -HypoMg: Repletions per standard supportive care orders -CINV: Unchanged. Had 3 episodes of emesis and only able to eat 40% of 1 meal and drink 1.5 L yesterday. -Given 1L NS and restarted MIVF -Continues Scop patch, scheduled Zofran, Marinol -Increase Zyprexa to BID today -Ativan, Haldol, and Phenergan PRN, as pt does not like Compazine -Diarrhea (note 08/27): 300 mL diarrhea yesterday. (08/28) C. Diff neg. Imodium PRN Subjective: Still feeling nauseated all the time and not getting much sleep because of it. Objective: Last Vitals: BP 159/83 | Pulse 70 | Temp 37.3 C (99.1 F) | RR 14 | Ht 1.873 m (6' 1.75" ) | Wt 80 kg (176 lb 5.9 oz) | SpO2 100% | BMI 22.8 kg/(m^2) 24 Hour Vital Min/Max: Systolic (24hrs), Av mmHg, Min:119 mmHg, Max:159 mmHg Diastolic (24hrs), Av mmHg, Min:73 mmHg, Max:93 mmHg Pulse Min: 70 Max: 90 Temp Min: 37.1 C (98.8 F) Max: 37.7 C (99.9 F) Resp Min: 14 Max: 18 SpO2 Min: 99 % Max: 100 % Intake/Output Summary (Last 24 hours) at 08/28/15 0855 Last data filed at 08/28/15 0400 Gross per 24 hour Intake 3098 ml Output 900 ml Net 2198 ml Physical Exam: General: This is a male in no acute distress. Sitting up in bed. HEENT: PERRL. Sclerae anicteric. Mucosa pink and moist without erythema or exudate. Skin: No rash noted. R upper chest mild erythema near prior Trifusion insertion site with mild edema. Chest: Lungs clear to auscultation bilat. CV: RRR, no murmurs. Abdomen: S/NT/ND with NABS. No HSM appreciated. Extremities: Pulses strong and equal bilaterally. No c/c/e. Neuro: Alert and oriented x 3. Grossly nonfocal exam. CVC: LCW Trifusion in place w/o inflammation or induration. Dressing c/d/i Recent Labs 08/26/15 0051 08/27/15 0436 08/28/15 0121 NA 139 138 137 K 4.1 4.0 3.8 CL 109* 108 106 BICARB 22 23 22 BUN 11 12 13 CR 0.65* 0.78 0.57* GLU 105* 98 116* CA 8.4* 8.8 8.6 AST 12 18 12 ALT 30 36 34 AP 79 85 80 TBILI 0.5 0.5 0.6 TP 6.6 6.7 6.9 ALB 3.5 3.5 3.6 Recent Labs 08/25/15 0028 08/26/15 0051 08/26/15 0621 08/27/15 0436 08/28/15 0121 WBC 1.31* 0.83* -- 1.31* 0.42* RBC 2.66* 2.86* -- 2.89* 2.86* HB 7.7* 8.2* -- 8.4* 8.2* HCT 21.3* 23.2* -- 23.2* 22.6* PLT 25* 29* 40* 70* 37* NEUTROPERC 70.6* 74.1* -- 72.2* -- LYMPHPERC 11.8* 11.1* -- 7.8* -- MONOPERC 17.6* 14.8* -- 16.5* -- BASOPERC 0.0 0.0 -- 0.0 -- EOSPERC 0.0* 0.0* -- 0.0* -- Meds: Reviewed on rounds, see current MAR for medication list Past Medical History: Khurram Kelly is a 25 year old male admitted for initiation of pre-transplant conditioning with targeted busulfan and cytoxan prior to MM unrelated donor PBSCT for treatm ent of primary refractory AML. 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 CM with a PMH of pericarditis who was in his [facility] u ntil 03/13/15 (the night of his [...] his L ankle. He was evaluated at [facility] ED on 06/[address] angiogram negative [...] recurrent fevers, pericarditis and CBC abnl, jazlyn millard was referred to Oncology for additional evaluation. Marrow studies completed on 05/19/15 s howed a hypercellular marrow (80-90%) with 86% of blast equivalents, comprised of myeloblast s, monoblasts and promonocytes. Concurrent flow cytometry detected 23% myeloid blasts and 60 % immature monocytic cells supporting this diagnosis. 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 He was referred to [facility] for further evaluation and man agement of his newly dx'd AML. Pt was admitted to [facility] on 05/26/15. Peripheral blood was [...] CD34, variable CD56, variable CD117, and dim [id number] mickey; promonocyte immunophenotype (70% by flow): CD11b, [...] No recurrence of oral cavity/upper chest pain. Hospitalization History: Hematology: #AML Conditioning regimen: tBuCy -Busulfan 1 mg/kg/dose PO every 6 hours on days -6, -5 and -4 -Clonazepam and Levetiracetam as prophylaxis for busulfan-induced seizures -Cyclophosphamide 60 mg/kg IV over 2 hours daily on days -3 and -2 -Mesna 60 mg/kg/day as a continuous infusion beginning just prior to the first dose of cy toxan and completing 24 hours after the second dose Stem cell transplant -Day: +1 -Tolerated MMURD stem cell product on 08/26-08/27 (Two Day 0's) without complications. CD 34 count = 5.96 x 10 6 per kg #Pancytopenia d/t disease and chemo -Antimicrobials as below -See supportive care #Supportive Care: Growth Factor: Due to begin daily Neupogen dosing on Day +12 (09/07) and continue until AN C > 1500 x 2 consecutive days. Labs: Continue to check CBC with diff daily Transfusion parameters: -Transfuse PRBCs for HCT <21% if asymptomatic OR <24% if symptomatic -Transfuse PPH for platelet count <10,000 or sooner for s/s active bleeding GVHD: None at this time Prophylaxis: -Tacro starts on Day -2; Check levels twice weekly and PRN. PharmD to titrate to goal. Goa l level: 5-10 -MTX 15 mg/m2 IV x 1 on Day +1, then MTX 10 mg/m2 IV on Days +3, +6, and +11 -No steroids unless he develops GvHD Staging: Skin: Grade 0 Gut: Grade 0 Liver: Grade 0 Overall stage: 0 Pulmonary: Pretransplant PFTs completed on 08/09/2015 showed FEV1 of 99% predicted, FVC of 110% predicted and DLCO of 82% predicted. No acute issues Cardiovascular: Pretransplant MUGA completed on 08/10/2015 showed a LVEF of 55-60%. #Risk for QTc Prolongation d/t -azoles, antiemetics -Check QTc PRN; Last QTc on 08/27 = 431 GI: #CINV -Marinol 5 mg BID qac -Zofran PO/IV q 12 hrs -Scop patch -Zyprexa 5 mg BID, increased 08/28 -Ativan, Haldol, Phenergan PRN (pt does not like Compazine) -MIVF as below #Constipation, now with Diarrhea d/t treatment - (08/28) C. Diff neg. Senna Plus, Colace, La ctulose PRN COMMODITY SUPERVISOR -Imodium PRN #Risk for Mucositis - Not an active issue -Continue oral care with normal saline rinses frequently Renal: No acute issues Musculoskeletal: No acute issues Neuro/Psych: #Depression - Zoloft COMMODITY SUPERVISOR -Zoloft 25 mg daily #Anxiety - Xanax PRN COMMODITY SUPERVISOR -Xanax 1 mg TID PRN Skin: No acute issues Endocrine: No acute issues Infectious Disease: #R Neck Trifusion infection s/p CVC removal on 08/22: Site less tender and erythematous -Vancomycin (08/21- ) -Replaced Trifusion on 08/26 prior to PBSCT -Follow BCx: NTD -Oxycodone PRN for pain #Prophylaxis: Bacterial: Levofloxacin started day -1 -For first neutropenic fever, preciado cx, CXR, d/c Levofloxacin and begin Cefepime for empiric broadspectrum coverage. Fungal: Fluconazole started day 0 Viral: Valacyclovir started day +1; will switch to Acyclovir upon discharge and continue u ntil Day +365 PCP: Bactrim day of admission through day -1 then Pentamidine prior to discharge #Routine infectious disease testing -CMV by PCR weekly, starting after day 0. (Pt and donor CMV+) Lab Results Component Value Date CMVQUANTPCR Undetected 08/22/2015 CMVQUANTPCR Undetected 08/09/2015 CMVQUANTPCR Undetected 07/15/2015 -Asp. Galactomannan weekly, starting after day 0. Lab Results Component Value Date GALACTO Negative 08/22/2015 -IgG every other week and repleted if falls <300 Lab Results Component Value Date IGG 780 08/18/2015 Fluid/Nutrition/Lytes: #Nutrition: Low bacteria diet #Fluid: NS @ 75 mL/hr d/t decreased PO intake and N/V/D #Lytes: -Continue to check chemistries daily -Replace per supportive care protocol. Disposition: Pt with AML, adm for BuCy MMURD PBSCT. Anticipate 3-4 week hospitalization. ORLY Bianchi [place] [id number] [facility] Mailcode: [id number] [place] [address] wen Lundy FNP - 08/27/2015 12:55 PM PST Daily NPP Note - Trans[facility] Attending: Daniel Das MD [facility] Physician: Yari Garcia MD PCP: Pending Pcp ADDITION Date of Admission: 08/18/2015 Conditioning regimen: tBuCy Date of transplant: 08/27/2015 (Two Day 0's) Donor: MMURD Reason for admission: tBuCy MMURD for refractory AML 24-Hr Events/Daily Plan: -Refractory AML: Adm for BuCy MMURD with Tacro + long-course MTX IST. Two Day 0's as cells completed @ 0130. Will receive Day +1 MTX tomorrow @ 0130. -R Neck Trifusion infection s/p CVC removal on 08/22: Site less tender and erythematous over all. -Continues Vancomycin -Replaced Trifusion this AM prior to PBSCT -Follow BCx: NTD -Stop Oxycontin, continue Oxycodone PRN -Pancytopenia d/t disease and chemo: Above standard transfusion threshold -Lytes: WNL. Standard repletions PRN -CINV: Unchanged. Had 1 episode of emesis and ate 25-100% of 2 small meals yesterday. -OK to switch MIVF to PRN -Continues Scop patch, scheduled Zofran, Marinol -Start Zyprexa, as pt also with insomnia -Ativan, Haldol, and Phenergan PRN, as pt does not like Compazine -Diarrhea (note 08/27): Switch scheduled stool softeners to PRN. Subjective: Still feeling nauseated all the time. Pain at the old Trifusion site is gettin g better daily. Starting to have some loose stools now. Objective: Last Vitals: BP 154/93 | Pulse 70 | Temp 37.2 C (99 F) | RR 16 | Ht 1.873 m (6' 1.75") | Wt 80 kg (176 lb 5.9 oz) | SpO2 100% | BMI 22.8 kg/(m^2) 24 Hour Vital Min/Max: Systolic (24hrs), Av mmHg, Min:119 mmHg, Max:154 mmHg Diastolic (24hrs), Av mmHg, Min:62 mmHg, Max:93 mmHg Pulse Min: 53 Max: 76 Temp Min: 37 C (98.6 F) Max: 37.5 C (99.5 F) Resp Min: 16 Max: 20 SpO2 Min: 99 % Max: 100 % Intake/Output Summary (Last 24 hours) at 08/27/15 1255 Last data filed at 08/27/15 1200 Gross per 24 hour Intake 4053 ml Output 2475 ml Net 1578 ml Physical Exam: General: This is a male in no acute distress. Sitting upright in bed. HEENT: PERRL. Sclerae anicteric. Mucosa pink and moist without erythema or exudate. Skin: No rash noted. R upper chest mild erythema near prior Trifusion insertion site with mild edema. Chest: Lungs clear to auscultation bilat. CV: RRR, no murmurs. Abdomen: S/NT/ND with NABS. No HSM appreciated. Extremities: Pulses strong and equal bilaterally. No c/c/e. Neuro: Alert and oriented x 3. Grossly nonfocal exam. CVC: LCW Trifusion in place w/o inflammation or induration. Dressing c/d/i Recent Labs 08/25/15 0028 08/26/15 0051 08/27/15 0436 NA 137 139 138 K 4.0 4.1 4.0 CL 108 109* 108 BICARB 21 22 23 BUN 13 11 12 CR 0.66* 0.65* 0.78 GLU 124* 105* 98 CA 7.9* 8.4* 8.8 AST 9 12 18 ALT 25 30 36 AP 75 79 85 TBILI 0.4 0.5 0.5 TP 6.3* 6.6 6.7 ALB 3.3* 3.5 3.5 Recent Labs 08/25/15 0028 08/26/15 0051 08/26/15 0621 08/27/15 0436 WBC 1.31* 0.83* -- 1.31* RBC 2.66* 2.86* -- 2.89* HB 7.7* 8.2* -- 8.4* HCT 21.3* 23.2* -- 23.2* PLT 25* 29* 40* 70* NEUTROPERC 70.6* 74.1* -- 72.2* LYMPHPERC 11.8* 11.1* -- 7.8* MONOPERC 17.6* 14.8* -- 16.5* BASOPERC 0.0 0.0 -- 0.0 EOSPERC 0.0* 0.0* -- 0.0* Meds: Reviewed on rounds, see current MAR for medication list Past Medical History: Khurram Kelly is a 25 year old male admitted for initiation of pre-transplant conditioning with targeted busulfan and cytoxan prior to MM unrelated donor PBSCT for treatm ent of primary refractory AML. 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 CM with a PMH of pericarditis who was in his [facility] u ntil 03/13/15 (the night of his [...] his L ankle. He was evaluated at [facility] ED on 06/[address] angiogram negative [...] recurrent fevers, pericarditis and CBC abnl, jazlyn millard was referred to Oncology for additional evaluation. Marrow studies completed on 05/19/15 s howed a hypercellular marrow (80-90%) with 86% of blast equivalents, comprised of myeloblast s, monoblasts and promonocytes. Concurrent flow cytometry detected 23% myeloid blasts and 60 % immature monocytic cells supporting this diagnosis. 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 He was referred to [facility] for further evaluation and man agement of his newly dx'd AML. Pt was admitted to [facility] on 05/26/15. Peripheral blood was [...] CD34, variable CD56, variable CD117, and dim [id number] mickey; promonocyte immunophenotype (70% by flow): CD11b, [...] No recurrence of oral cavity/upper chest pain. Hospitalization History: Hematology: #AML Conditioning regimen: tBuCy -Busulfan 1 mg/kg/dose PO every 6 hours on days -6, -5 and -4 -Clonazepam and Levetiracetam as prophylaxis for busulfan-induced seizures -Cyclophosphamide 60 mg/kg IV over 2 hours daily on days -3 and -2 -Mesna 60 mg/kg/day as a continuous infusion beginning just prior to the first dose of cy toxan and completing 24 hours after the second dose Stem cell transplant -Day: 0 -Tolerated MMURD stem cell product on 08/26-08/27 (Two Day 0's) without complications. CD 34 count = 1.369 x 10 6 per kg #Pancytopenia d/t disease and chemo -Antimicrobials as below -See supportive care #Supportive Care: Growth Factor: Due to begin daily Neupogen dosing on Day +12 (09/07) and continue until AN C > 1500 x 2 consecutive days. Labs: Continue to check CBC with diff daily Transfusion parameters: -Transfuse PRBCs for HCT <21% if asymptomatic OR <24% if symptomatic -Transfuse PPH for platelet count <10,000 or sooner for s/s active bleeding GVHD: None at this time Prophylaxis: -Tacro starts on Day -2; Check levels twice weekly and PRN. PharmD to titrate to goal. Goa l level: 5-10 -MTX 15 mg/m2 IV x 1 on Day +1, then MTX 10 mg/m2 IV on Days +3, +6, and +11 -No steroids unless he develops GvHD Staging: Skin: Grade 0 Gut: Grade 0 Liver: Grade 0 Overall stage: 0 Pulmonary: Pretransplant PFTs completed on 08/09/2015 showed FEV1 of 99% predicted, FVC of 110% predicted and DLCO of 82% predicted. No acute issues Cardiovascular: Pretransplant MUGA completed on 08/10/2015 showed a LVEF of 55-60%. 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 Fungal: Fluconazole started day 0 Viral: Valacyclovir starts day +1; will switch to Acyclovir upon discharge and continue un til Day +365 PCP: Bactrim day of admission through day -1 then Pentamidine prior to discharge #Routine infectious disease testing -CMV by PCR weekly, starting after day 0. (Pt and donor CMV+) Lab Results Component Value Date CMVQUANTPCR Undetected 08/22/2015 CMVQUANTPCR Undetected 08/09/2015 CMVQUANTPCR Undetected 07/15/2015 -Asp. Galactomannan weekly, starting after day 0. Lab Results Component Value Date GALACTO Negative 08/22/2015 -IgG every other week and repleted if falls <300 Lab Results Component Value Date IGG 780 08/18/2015 Fluid/Nutrition/Lytes: #Nutrition: Low bacteria diet #Fluid: 1L NS bolus qhs PRN daily PO fluid intake <2L by 2200 #Lytes: -Continue to check chemistries daily -Replace per supportive care protocol. Disposition: Pt with AML, adm for BuCy MMURD PBSCT. Anticipate 3-4 week hospitalization. ORLY Bianchi [facility] [address] [facility] Mailcode: [facility] [place] [address] Daniel Julio MD - 08/27/2015 10:47 AM PST Hematologic Malignancies/Bone Marrow Transplant Inpatient Attending Progress Note: Hospital course summary: 25 yo man with r/r AML here for tBuCy URD allo day 0 = 08/26/15 I rounded today, 08/27/2015, in conjunction with the Advanced Practice Provider. I saw the patient, reviewed the history and relevant studies and developed an assessment an d plan. Subjective/Objective: feeling okay this morning. Still having some nausea. Some pain with n ew line but improving. Old line site better ROS otherwise negative Summary of day's events and plan: day 0 of allo (two day 0s) - CINV should improve -> encouraged less anti-emetics - day 0 due to late stem cell infusion -> adjust for MTX ppx - cont vanco for port infection - reduce pain meds - clinically well GVH ppx -Tacro starts on Day -2; Check levels twice weekly and PRN. PharmD to titrate to goal. Goal level: -MTX 15 mg/m2 IV x 1 on Day +1, then MTX 10 mg/m2 IV on Days +3, +6, and +11 -No steroids unless he develops GvHD Please see the Advanced Practice Provider documentation from today for the details regardin g the assessment and plan. 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) 08/19/2015 Hypoproliferative anemia (HCC) 08/19/2015 Complications of bone marrow transplant (HCC) 08/19/2015 ADHD (attention deficit hyperactivity disorder) 08/18/2015 Renal insufficiency 07/02/2015 Rash and nonspecific skin eruption 06/29/2015 Folliculitis 06/29/2015 Pain of cheek 06/25/2015 Parotiditis 06/12/2015 Acute myeloid leukemia (AML), M4 (HCC) 06/11/2015 Pancytopenia due to chemotherapy (HCC) 06/03/2015 Immunocompromised state (HCC) 05/29/2015 Electrolyte abnormality 05/29/2015 [facility] RESEARCH PROTOCOL PATIENT (RESPRO) 05/28/2015 Overview Note: Patient was consented to the study eIRB #4422 titled "Pathogenesis of Acute Leukemia, Lym phoproliferative Disorders, Myelodysplastic Syndromes, and Myeloproliferative Disorders" by Alexandria Reyes on 05/27/15. Patient declined to have a skin biopsy taken during the standard of c are bone marrow biopsy. Patient was consented to the study eIRB #[id number] titled "Pathogenesis of Acute Leukemia, Lymph oproliferative Disorders, Myelodysplastic Syndromes, and Myeloproliferative Disorders" by ORLY Pack, on 07/07/15. Patient agreed to have a skin biopsy taken during the [facility] bone marrow biopsy. Acute myeloid leukemia (AML), M4 (HCC)- primary induction failure 05/20/2015 Ht 1.873 m (6' 1.75"), Wt 80 kg (176 lb 5.9 oz), BP 119/73, Pulse 74, Temperature 37.4 C (99.3 F), RR 16, SpO2 100%, BMI 22.8 kg/(m^2). Focused Exam: nad, op clear, infected port site less swollen, New port with swelling near i nsertion but minimal erythem, cta b, rrr no m/r/g, soft abd, no edema Intake/Output Summary (Last 24 hours) at 08/27/15 1047 Last data filed at 02/19/16 0900 Gross per 24 hour Intake 5032 ml Output 2775 ml Net 2257 ml Recent Labs 08/25/15 0028 08/26/15 0051 08/27/15 0436 NA 137 139 138 K 4.0 4.1 4.0 CL 108 109* 108 BICARB 21 22 23 BUN 13 11 12 CR 0.66* 0.65* 0.78 GLU 124* 105* 98 CA 7.9* 8.4* 8.8 AST 9 12 18 ALT 25 30 36 AP 75 79 85 TBILI 0.4 0.5 0.5 TP 6.3* 6.6 6.7 ALB 3.3* 3.5 3.5 Recent Labs 08/25/15 0028 08/26/15 0051 08/26/15 0621 08/27/15 0436 WBC 1.31* 0.83* -- 1.31* RBC 2.66* 2.86* -- 2.89* HB 7.7* 8.2* -- 8.4* HCT 21.3* 23.2* -- 23.2* PLT 25* 29* 40* 70* NEUTROPERC 70.6* 74.1* -- 72.2* LYMPHPERC 11.8* 11.1* -- 7.8* MONOPERC 17.6* 14.8* -- 16.5* BASOPERC 0.0 0.0 -- 0.0 EOSPERC 0.0* 0.0* -- 0.0* I spent 35 minutes including chart review and discussion with the ESTHELA. Greater than >50% of time spent in direct counseling and coordination of care including discussino of pain meds, CINv, anti-emetics, stem cells, engraftment and recovery [facility] DEPARTMENT: [id number] - [facility] M[facility] Place of Service: - Inpatient Date of Service: 08/27/2015 Suggested CPT: 44973 - Subsequent, Detailed/High complex Daniel Julio MD - 12:33 PM PST Hematologic Malignancies/Bone Marrow Transplant Inpatient Attending Progress Note: Hospital course summary: 25 yo man with r/r AML here for tBuCy URD allo day 0 = 08/26/15 I rounded today, 08/26/2015, in conjunction with the Advanced Practice Provider. I saw the patient, reviewed the history and relevant studies and developed an assessment an d plan. Subjective/Objective: some nausea yesterday and this morning but improved. ROS otherwise negative Summary of day's events and plan: day 0 of tBuCy URD allo - increasing CINV -> scheduled zofran and marinol - consider olanzapine at night if no improvement - stem cells tonight at 10:30PM - new port placed on L - cont vanco for port infx from R GVH ppx -Tacro starts on Day -2; Check levels twice weekly and PRN. PharmD to titrate to goal. Goal level: -MTX 15 mg/m2 IV x 1 on Day +1, then MTX 10 mg/m2 IV on Days +3, +6, and +11 -No steroids unless he develops GvHD Please see the Advanced Practice Provider documentation from today for the details regardin g the assessment and plan. 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) 08/19/2015 Hypoproliferative anemia (HCC) 08/19/2015 Complications of bone marrow transplant (HCC) 08/19/2015 ADHD (attention deficit hyperactivity disorder) 08/18/2015 Renal insufficiency 07/02/2015 Rash and nonspecific skin eruption 06/29/2015 Folliculitis 06/29/2015 Pain of cheek 06/25/2015 Parotiditis 06/12/2015 Acute myeloid leukemia (AML), M4 (HCC) 06/11/2015 Pancytopenia due to chemotherapy (HCC) 06/03/2015 Immunocompromised state (HCC) 05/29/2015 Electrolyte abnormality 05/29/2015 [facility] RESEARCH PROTOCOL PATIENT (RESPRO) 05/28/2015 Overview Note: Patient was consented to the study eIRB #4422 titled "Pathogenesis of Acute Leukemia, Lym phoproliferative Disorders, Myelodysplastic Syndromes, and Myeloproliferative Disorders" by Alexandria Reyes on 05/27/15. Patient declined to have a skin biopsy taken during the standard of c are bone marrow biopsy. Patient was consented to the study eIRB #4422 titled "Pathogenesis of Acute Leukemia, Lymph oproliferative Disorders, Myelodysplastic Syndromes, and Myeloproliferative Disorders" by ORLY Pack, on 07/07/15. Patient agreed to have a skin biopsy taken during the [facility] bone marrow biopsy. Acute myeloid leukemia (AML), M4 (HCC)- primary induction failure 05/20/2015 Ht 1.873 m (6' 1.75"), Wt 80 kg (176 lb 5.9 oz), BP 127/76, Pulse 58, Temperature 37.2 C (99 F), RR 20, SpO2 100%, BMI 22.8 kg/(m^2). Focused Exam: nad, op clear, cta b, rrr no m/r/g, soft abd, no edema Intake/Output Summary (Last 24 hours) at 08/26/15 1233 Last data filed at 08/26/15 1130 Gross per 24 hour Intake 4776.4 ml Output 4300 ml Net 476.4 ml Recent Labs 08/24/15 0459 08/24/15 0936 08/25/15 0028 08/26/15 0051 NA 129* 137 137 139 K 4.2 -- 4.0 4.1 CL 99 -- 108 109* BICARB 23 -- 21 22 BUN 10 -- 13 11 CR 0.59* -- 0.66* 0.65* GLU 149* -- 124* 105* CA 8.5* -- 7.9* 8.4* AST 11 -- 9 12 ALT 26 -- 25 30 AP 80 -- 75 79 TBILI 0.5 -- 0.4 0.5 TP 6.7 -- 6.3* 6.6 ALB 3.3* -- 3.3* 3.5 Recent Labs 08/24/15 0459 08/25/15 0028 08/26/15 0051 08/26/15 0621 WBC 0.95* 1.31* 0.83* -- RBC 2.64* 2.66* 2.86* -- HB 7.6* 7.7* 8.2* -- HCT 20.8* 21.3* 23.2* -- PLT 29* 25* 29* 40* NEUTROPERC 89.6* 70.6* 74.1* -- LYMPHPERC 6.9* 11.8* 11.1* -- MONOPERC 3.5 17.6* 14.8* -- BASOPERC 0.0 0.0 0.0 -- EOSPERC 0.0* 0.0* 0.0* -- I spent 35 minutes including chart review and discussion with the ESTHELA. Greater than >50% of time spent in direct counseling and coordination of care including discussion of nausea, an ti-emetics, chemo, side effects, upcoming glenis, stem cell infusion and plan for day. [facility] DEPARTMENT: [id number] - [facility] Place of Service: - Inpatient Date of Service: 08/26/2015 Suggested CPT: 67260 - Subsequent, Detailed/High complex Yosvany Blanc MD - 08/26/2015 9:03 AM PSTBRIEF INTERVENTIONAL RADIOLOGY PROCEDURE NOTE DATE: 08/26/2015 9:03 AM PROCEDURE: Left trifusion cath placement (23 cm tip to cuff) PRE-PROCEDURE DIAGNOSIS: AML POST-PROCEDURE DIAGNOSIS: Same IR STAFF: Ashly IR FELLOW: Tonny ACCESS: Left IJ MEDICATIONS: Fentanyl 200 mcg IV Versed 4 mg IV COMPLICATION(S): None immediate FINDINGS: 1. Patent left IJ. 2. Uneventful placement of left 23 cm tip to cuff Trifusion catheter. 3. Cath ready to use. Full report forthcoming. Lin Dean FNP - 08/26/2015 8:27 AM PSTFormatting of this note might be different from the origin al. Daily NPP Note - Transplant Admit [facility] Attending: Daniel Das MD [facility] Physician: Yari Garcia MD PCP: Pending Pcp ADDITION Date of Admission: 08/18/2015 Conditioning regimen: tBuCy Date of transplant: 08/26/2015 Donor: MMURD Reason for admission: tBuCy MMURD for refractory AML 24-Hr Events/Daily Plan: -Refractory AML: Adm for BuCy MMURD with Tacro + long-course MTX IST. Plan for PBSCT @ 2230 tonight. -R Neck Trifusion infection s/p CVC removal on 08/22: Site less tender and erythematous over all. -Continues Vancomycin -Replaced Trifusion this AM prior to PBSCT -Follow BCx: NTD -Continues Oxycontin with Oxycodone PRN -Pancytopenia d/t disease and chemo: Standard transfusion threshold, 2 PPH transfused this AM to keep plts >50K for Trifusion placement -Lytes: WNL. Standard repletions PRN -CINV: Unchanged. Ate applesauce and peaches and drank 1.5L yesterday. -Continues Scop patch -Schedule Zofran IV/PO -Start Marinol 5 mg BID qac -Trial Phenergan PRN, as pt does not like Compazine Subjective: Still feeling very nauseated all the time. Happy to get his new line this morn ing. Feels that the swelling around the site of his last central line is improving. Objective: Last Vitals: BP 121/65 | Pulse 48 | Temp 37.3 C (99.1 F) | RR 16 | Ht 1.873 m (6' 1.75" ) | Wt 80 kg (176 lb 5.9 oz) | SpO2 100% | BMI 22.8 kg/(m^2) 24 Hour Vital Min/Max: Systolic (24hrs), Av mmHg, Min:118 mmHg, Max:140 mmHg Diastolic (24hrs), Av mmHg, Min:56 mmHg, Max:79 mmHg Pulse Min: 47 Max: 81 Temp Min: 36.9 C (98.4 F) Max: 37.3 C (99.1 F) Resp Min: 16 Max: 16 SpO2 Min: 98 % Max: 100 % Intake/Output Summary (Last 24 hours) at 08/26/15 0827 Last data filed at 08/26/15 0600 Gross per 24 hour Intake 4939.2 ml Output 4300 ml Net 639.2 ml Physical Exam: General: This is a male in no acute distress. Sitting up in bed. HEENT: PERRL. Sclerae anicteric. Mucosa pink and moist without erythema or exudate. Skin: No rash noted. R upper chest mild erythema near prior Trifusion insertion site with mild edema. Chest: Lungs clear to auscultation bilat. CV: RRR, no murmurs. Abdomen: S/NT/ND with NABS. No HSM appreciated. Extremities: Pulses strong and equal bilaterally. No c/c/e. Neuro: Alert and oriented x 3. Grossly nonfocal exam. CVC: LCW Trifusion in place w/o inflammation or induration. Dressing c/d/i Recent Labs 08/24/15 0459 08/24/15 0936 08/25/15 0028 08/26/15 0051 NA 129* 137 137 139 K 4.2 -- 4.0 4.1 CL 99 -- 108 109* BICARB 23 -- 21 22 BUN 10 -- 13 11 CR 0.59* -- 0.66* 0.65* GLU 149* -- 124* 105* CA 8.5* -- 7.9* 8.4* AST 11 -- 9 12 ALT 26 -- 25 30 AP 80 -- 75 79 TBILI 0.5 -- 0.4 0.5 TP 6.7 -- 6.3* 6.6 ALB 3.3* -- 3.3* 3.5 Recent Labs 08/24/15 0459 08/25/15 0028 08/26/15 0051 08/26/15 0621 WBC 0.95* 1.31* 0.83* -- RBC 2.64* 2.66* 2.86* -- HB 7.6* 7.7* 8.2* -- HCT 20.8* 21.3* 23.2* -- PLT 29* 25* 29* 40* NEUTROPERC 89.6* 70.6* 74.1* -- LYMPHPERC 6.9* 11.8* 11.1* -- MONOPERC 3.5 17.6* 14.8* -- BASOPERC 0.0 0.0 0.0 -- EOSPERC 0.0* 0.0* 0.0* -- Meds: Reviewed on rounds, see current MAR for medication list Past Medical History: Khurram Kelly is a 25 year old male admitted for initiation of pre-transplant conditioning with targeted busulfan and cytoxan prior to MM unrelated donor PBSCT for treatm ent of primary refractory AML. 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 He was evaluated at [facility] ED on 06/[address] angiogram negative [...] leukemia. He was referred to [facility] for further evaluation and man agement of his newly dx'd AML. Pt was admitted to [facility] on 05/26/15. Peripheral blood was [...] CD34, variable CD56, variable CD117, and dim [id number]-fcszy mickey; promonocyte immunophenotype (70% by flow): CD11b, [...] No recurrence of oral cavity/upper chest pain. Hospitalization History: Hematology: #AML Conditioning regimen: tBuCy -Busulfan 1 mg/kg/dose PO every 6 hours on days -6, -5 and -4 -Clonazepam and Levetiracetam as prophylaxis for busulfan-induced seizures -Cyclophosphamide 60 mg/kg IV over 2 hours daily on days -3 and -2 -Mesna 60 mg/kg/day as a continuous infusion beginning just prior to the first dose of cy toxan and completing 24 hours after the second dose Stem cell transplant -Day: 0 -Due for infusion of MMUD product on 08/26/2015. #Pancytopenia d/t disease and chemo -Antimicrobials as below -See supportive care #Supportive Care: Growth Factor: Due to begin daily Neupogen dosing on Day +12 (09/06) and continue until AN C > 1500 x 2 consecutive days. Labs: Continue to check CBC with diff daily Transfusion parameters: -Transfuse PRBCs for HCT <21% if asymptomatic OR <24% if symptomatic -Transfuse PPH for platelet count <10,000 or sooner for s/s active bleeding GVHD: not applicable at this time Prophylaxis: -Tacro starts on Day -2; Check levels twice weekly and PRN. PharmD to titrate to goal. Goa l level: -MTX 15 mg/m2 IV x 1 on Day +1, then MTX 10 mg/m2 IV on Days +3, +6, and +11 -No steroids unless he develops GvHD Staging: Skin: Grade N/A Gut: Grade N/A Liver: Grade N/A Overall stage: N/A Pulmonary: Pretransplant PFTs completed on 08/09/2015 showed FEV1 of 99% predicted, FVC of 110% predicted and DLCO of 82% predicted. No acute issues Cardiovascular: Pretransplant MUGA completed on 08/10/2015 showed a LVEF of 55-60%. 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 Fungal: Fluconazole started day 0 Viral: Valacyclovir starts day +1; will switch to Acyclovir upon discharge and continue un til Day +365 PCP: Bactrim day of admission through day -1 then Pentamidine prior to discharge #Routine infectious disease testing -CMV by PCR weekly, starting after day 0. (Pt and donor CMV+) Lab Results Component Value Date CMVQUANTPCR Undetected 08/22/2015 CMVQUANTPCR Undetected 08/09/2015 CMVQUANTPCR Undetected 07/15/2015 -Asp. Galactomannan weekly, starting after day 0. Lab Results Component Value Date GALACTO Negative 08/22/2015 -IgG every other week and repleted if falls <300 Lab Results Component Value Date IGG 780 08/18/2015 Fluid/Nutrition/Lytes: #Nutrition: Low bacteria diet #Fluid: NS at 100 mL/hr #Lytes: -Continue to check chemistries daily -Replace per supportive care protocol. Disposition: Pt with AML, adm for BuCy MMURD PBSCT. Anticipate 3-4 week hospitalization. ORLY Bianchi [address] [facility] Mailcode: [place] [address] russell, ORLY Farah - 08/25/2015 7:06 PM PST Daily NPP Note - Transplant Admit [facility]ignancies Attending: Daniel Das MD [facility] Physician: Yari Garcia MD PCP: Pending Pcp ADDITION Date of Admission: 08/18/2015 Conditioning regimen: tBuCy Date of transplant: 08/26/2015 Donor: MMURD Reason for admission: tBuCy MMURD for refractory AML 24-Hr Events/Daily Plan: -Refractory AML: Adm for BuCy MMURD with Tacro + long-course MTX IST. Plan for PBSCT @ 2230 on 08/26. -R Neck Trifusion infection s/p CVC removal on 08/22: Site less tender and erythematous over all. -Continues Vancomycin -Plan to replace Trifusion on Thurs AM prior to PBSCT: Per IR, will transfuse early that A M to keep plts >50K and have 1 PPH available for procedure -Follow BCx: NTD -Pancytopenia d/t disease and chemo: Standard transfusion threshold, no transfusions requir ed today -Lytes: WNL. Standard repletions PRN -LONA: Controlled with PRN Ativan, Zofran. Able to eat 100% of 2 meals and drink 2.1L yester day Subjective: Neck still sore where his line used to be. More nauseated today. Objective: Last Vitals: BP 130/70 | Pulse 59 | Temp 36.9 C (98.4 F) | RR 16 | Ht 1.873 m (6' 1.75" ) | Wt 80 kg (176 lb 5.9 oz) | SpO2 100% | BMI 22.8 kg/(m^2) 24 Hour Vital Min/Max: Systolic (24hrs), Av mmHg, Min:118 mmHg, Max:133 mmHg Diastolic (24hrs), Av mmHg, Min:56 mmHg, Max:78 mmHg Pulse Min: 54 Max: 81 Temp Min: 36.6 C (97.9 F) Max: 37 C (98.6 F) Resp Min: 16 Max: 16 SpO2 Min: 98 % Max: 100 % Intake/Output Summary (Last 24 hours) at 08/25/15 1906 Last data filed at 08/25/15 1800 Gross per 24 hour Intake 5269 ml Output 5300 ml Net -31 ml Physical Exam: General: This is a male in no acute distress. Laying in bed. HEENT: PERRL. Sclerae anicteric. Mucosa pink and moist without erythema or exudate. Skin: No rash noted. R upper chest mild erythema near prior Trifusion insertion site with mild edema. Chest: Lungs clear to auscultation bilat. CV: RRR, no murmurs. Abdomen: S/NT/ND with NABS. No HSM appreciated. Extremities: Pulses strong and equal bilaterally. No c/c/e. Neuro: Alert and oriented x 3. Grossly nonfocal exam. CVC: None. LUE midline catheter only. Recent Labs 08/22/15 2331 08/24/15 0459 08/24/15 0936 08/25/15 0028 NA 137 129* 137 137 K 4.0 4.2 -- 4.0 CL 102 99 -- 108 BICARB 28 23 -- 21 BUN 9 10 -- 13 CR 0.88 0.59* -- 0.66* GLU 98 149* -- 124* CA 8.7 8.5* -- 7.9* AST 13 11 -- 9 ALT 32 26 -- 25 AP 83 80 -- 75 TBILI 0.5 0.5 -- 0.4 TP 7.1 6.7 -- 6.3* ALB 3.9 3.3* -- 3.3* Recent Labs 08/22/15 2331 08/24/15 0459 08/25/15 0028 WBC 1.32* 0.95* 1.31* RBC 2.74* 2.64* 2.66* HB 7.8* 7.6* 7.7* HCT 22.5* 20.8* 21.3* PLT 43* 29* 25* NEUTROPERC 51.3 89.6* 70.6* LYMPHPERC 15.9* 6.9* 11.8* MONOPERC 31.9* 3.5 17.6* BASOPERC 0.9 0.0 0.0 EOSPERC 0.0* 0.0* 0.0* Meds: Reviewed on rounds, see current MAR for medication list Past Medical History: Khurram Kelly is a 25 year old male admitted for initiation of pre-transplant conditioning with targeted busulfan and cytoxan prior to MM unrelated donor PBSCT for treatm ent of primary refractory AML. 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 CM with a PMH of pericarditis who was in his [facility] u ntil 03/13/15 (the night of his [...] his L ankle. He was evaluated at [facility] ED on 06/[address] angiogram negative [...] recurrent fevers, pericarditis and CBC abnl, jazlyn millard was referred to Oncology for additional evaluation. Marrow studies completed on 05/19/15 s howed a hypercellular marrow (80-90%) with 86% of blast equivalents, comprised of myeloblast s, monoblasts and promonocytes. Concurrent flow cytometry detected 23% myeloid blasts and 60 % immature monocytic cells supporting this diagnosis. 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 He was referred to [facility] for further evaluation and man agement of his newly dx'd AML. Pt was admitted to [facility] on 05/26/15. Peripheral blood was [...] CD34, variable CD56, variable CD117, and dim [id number] mickey; promonocyte immunophenotype (70% by flow): CD11b, [...] No recurrence of oral cavity/upper chest pain. Hospitalization History: Hematology: #AML Conditioning regimen: tBuCy -Busulfan 1 mg/kg/dose PO every 6 hours on days -6, -5 and -4 -Clonazepam and Levetiracetam as prophylaxis for busulfan-induced seizures -Cyclophosphamide 60 mg/kg IV over 2 hours daily on days -3 and -2 -Mesna 60 mg/kg/day as a continuous infusion beginning just prior to the first dose of cy toxan and completing 24 hours after the second dose Stem cell transplant -Day: -1 -Due for infusion of MMUD product on 08/26/2015. #Pancytopenia d/t disease and chemo -Antimicrobials as below -See supportive care #Supportive Care: Growth Factor: Due to begin daily Neupogen dosing on Day +12 (09/06) and continue until AN C > 1500 x 2 consecutive days. Labs: Continue to check CBC with diff daily Transfusion parameters: -Transfuse PRBCs for HCT <21% if asymptomatic OR <24% if symptomatic -Transfuse PPH for platelet count <10,000 or sooner for s/s active bleeding GVHD: not applicable at this time Prophylaxis: -Tacro starts on Day -2; Check levels twice weekly and PRN. PharmD to titrate to goal. Goa l level: -MTX 15 mg/m2 IV x 1 on Day +1, then MTX 10 mg/m2 IV on Days +3, +6, and +11 -No steroids unless he develops GvHD Staging: Skin: Grade N/A Gut: Grade N/A Liver: Grade N/A Overall stage: N/A Pulmonary: Pretransplant PFTs completed on 08/09/2015 showed FEV1 of 99% predicted, FVC of 110% predicted and DLCO of 82% predicted. No acute issues Cardiovascular: Pretransplant MUGA completed on 08/10/2015 showed a LVEF of 55-60%. 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 -Vancomycin (08/21- ) -Plan to replace Trifusion on 08/26 prior to PBSCT -Follow BCx: NTD #Prophylaxis: Bacterial: Levofloxacin started day -1 -For first neutropenic fever, preciado cx, CXR, d/c Levofloxacin and begin Cefepime for empiric broadspectrum coverage. Fungal: Fluconazole starts day 0 Viral: Valacyclovir starts day +1; will switch to Acyclovir upon discharge and continue un til Day +365 PCP: Bactrim day of admission through day -1 then Pentamidine prior to discharge #Routine infectious disease testing -CMV by PCR weekly, starting after day 0. (Pt and donor CMV+) Lab Results Component Value Date CMVQUANTPCR Undetected 08/22/2015 CMVQUANTPCR Undetected 08/09/2015 CMVQUANTPCR Undetected 07/15/2015 -Asp. Galactomannan weekly, starting after day 0. Lab Results Component Value Date GALACTO Negative 08/22/2015 -IgG every other week and repleted if falls <300 Lab Results Component Value Date IGG 780 08/18/2015 Fluid/Nutrition/Lytes: #Nutrition: Low bacteria diet #Fluid: NS at 100 mL/hr #Lytes: -Continue to check chemistries daily -Replace per supportive care protocol. Disposition: Pt with AML, adm for BuCy MMURD PBSCT. Anticipate 3-4 week hospitalization. ORLY Bianchi [facility] [id number] [facility] Mailcode: [facility] [place] [address] Daniel Julio MD - 08/25/2015 12:02 PM PST Hematologic Malignancies/Bone Marrow Transplant Inpatient Attending Progress Note: Hospital course summary: 25 yo man with r/r AML here for tBuCy URD allo day 0 = 08/26/15 I rounded today, 08/25/2015, in conjunction with the Advanced Practice Provider. I saw the patient, reviewed the history and relevant studies and developed an assessment an d plan. Subjective/Objective: still with some pain in R shoulder. Having more nausea. Tired this AM ROS otherwise negative Summary of day's events and plan: day -1 of tBuCy URD allo - worsening CINV -> encouraged anti-emetics, consider scheduling - needs new line for allo -> place tomorrow - stem cells 10:30 PM tomorrow - cont vanco for port tract infx GVH ppx -Tacro starts on Day -2; Check levels twice weekly and PRN. PharmD to titrate to goal. Goal level: -MTX 15 mg/m2 IV x 1 on Day +1, then MTX 10 mg/m2 IV on Days +3, +6, and +11 -No steroids unless he develops GvHD Please see the Advanced Practice Provider documentation from today for the details regardin g the assessment and plan. 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) 08/19/2015 Hypoproliferative anemia (HCC) 08/19/2015 Complications of bone marrow transplant (HCC) 08/19/2015 ADHD (attention deficit hyperactivity disorder) 08/18/2015 Renal insufficiency 07/02/2015 Rash and nonspecific skin eruption 06/29/2015 Folliculitis 06/29/2015 Pain of cheek 06/25/2015 Parotiditis 06/12/2015 Acute myeloid leukemia (AML), M4 (HCC) 06/11/2015 Pancytopenia due to chemotherapy (HCC) 06/03/2015 Immunocompromised state (HCC) 05/29/2015 Electrolyte abnormality 05/29/2015 [facility] RESEARCH PROTOCOL PATIENT (RESPRO) 05/28/2015 Overview Note: Patient was consented to the study eIRB #4422 titled "Pathogenesis of Acute Leukemia, Lym phoproliferative Disorders, Myelodysplastic Syndromes, and Myeloproliferative Disorders" by Alexandria Reyes on 05/27/15. Patient declined to have a skin biopsy taken during the standard of c are bone marrow biopsy. Patient was consented to the study eIRB #4422 titled "Pathogenesis of Acute Leukemia, Lymph oproliferative Disorders, Myelodysplastic Syndromes, and Myeloproliferative Disorders" by ORLY Pack, on 07/07/15. Patient agreed [facility] have a [facility]. Acute myeloid leukemia (AML), M4 (HCC)- primary induction failure 05/20/2015 Ht 1.873 m (6' 1.75"), Wt 80 kg (176 lb 5.9 oz), BP 133/75, Pulse 81, Temperature 37 C (9 8.6 F), RR 16, SpO2 99%, BMI 22.8 kg/(m^2). Focused Exam: ill-appearing but NAD, OP clear, CTA B ,RRR no M/r/G, abd soft, no edema Intake/Output Summary (Last 24 hours) at 08/25/15 1202 Last data filed at 08/25/15 1120 Gross per 24 hour Intake 5759 ml Output 4850 ml Net 909 ml Recent Labs 08/22/15 2331 08/24/15 0459 08/24/15 0936 08/25/15 0028 NA 137 129* 137 137 K 4.0 4.2 -- 4.0 CL 102 99 -- 108 BICARB 28 23 -- 21 BUN 9 10 -- 13 CR 0.88 0.59* -- 0.66* GLU 98 149* -- 124* CA 8.7 8.5* -- 7.9* AST 13 11 -- 9 ALT 32 26 -- 25 AP 83 80 -- 75 TBILI 0.5 0.5 -- 0.4 TP 7.1 6.7 -- 6.3* ALB 3.9 3.3* -- 3.3* Recent Labs 08/22/15 2331 08/24/15 0459 08/25/15 0028 WBC 1.32* 0.95* 1.31* RBC 2.74* 2.64* 2.66* HB 7.8* 7.6* 7.7* HCT 22.5* 20.8* 21.3* PLT 43* 29* 25* NEUTROPERC 51.3 89.6* 70.6* LYMPHPERC 15.9* 6.9* 11.8* MONOPERC 31.9* 3.5 17.6* BASOPERC 0.9 0.0 0.0 EOSPERC 0.0* 0.0* 0.0* I spent 35 minutes including chart review and discussion with the ESTHELA. Greater than >50% of time spent in direct counseling and coordination of care including discussion of CINV, anti -emetics, chemo, side effects, line issues, transplant issue and plan. [facility] DEPARTMENT: [id number] - [facility] MPV Place of Service: - Inpatient Date of Service: 08/25/2015 Suggested CPT: 43638 - Subsequent, Detailed/High complex Daniel Julio MD - 3:39 PM PST Hematologic Malignancies/Bone Marrow Transplant Inpatient Attending Progress Note: Hospital course summary: 25 yo man with r/r AML here for tBuCy URD allo day 0 = 08/26/15 I rounded today, 08/24/2015, in conjunction with the Advanced Practice Provider. I saw the patient, reviewed the history and relevant studies and developed an assessment an d plan. Subjective/Objective: R shoulder still hurts but better. Tolerating chemo okay. Mild nausea . Still eating ROS otherwise negative Summary of day's events and plan: day -2 of tByCy URD allo - mild CINV - good PO intake despite mild CINV - needs new line for allo -> place - completes chemo tonight - on vanco for port tract infx GVH ppx -Tacro starts on Day -2; Check levels twice weekly and PRN. PharmD to titrate to goal. Goal level: -MTX 15 mg/m2 IV x 1 on Day +1, then MTX 10 mg/m2 IV on Days +3, +6, and +11 -No steroids unless he develops GvHD Please see the Advanced Practice Provider documentation from today for the details regardin g the assessment and plan. 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) 08/19/2015 Hypoproliferative anemia (HCC) 08/19/2015 Complications of bone marrow transplant (HCC) 08/19/2015 ADHD (attention deficit hyperactivity disorder) 08/18/2015 Renal insufficiency 07/02/2015 Rash and nonspecific skin eruption 06/29/2015 Folliculitis 06/29/2015 Pain of cheek 06/25/2015 Parotiditis 06/12/2015 Acute myeloid leukemia (AML), M4 (HCC) 06/11/2015 Pancytopenia due to chemotherapy (HCC) 06/03/2015 Immunocompromised state (HCC) 05/29/2015 Electrolyte abnormality 05/29/2015 [facility] RESEARCH PROTOCOL PATIENT (RESPRO) 05/28/2015 Overview Note: Patient was consented to the study eIRB #4422 titled "Pathogenesis of Acute Leukemia, Lym phoproliferative Disorders, Myelodysplastic Syndromes, and Myeloproliferative Disorders" by Alexandria Reyes on 05/27/15. Patient declined to have a skin biopsy taken during the standard of c are bone marrow biopsy. Patient was consented to the study eIRB #4422 titled "Pathogenesis of Acute Leukemia, Lymph oproliferative Disorders, Myelodysplastic Syndromes, and Myeloproliferative Disorders" by ORLY Pack, on 07/07/15. Patient agreed to have a skin biopsy [facility]. Acute myeloid leukemia (AML), M4 (HCC)- primary induction failure 05/20/2015 Ht 1.873 m (6' 1.75"), Wt 86.9 kg (191 lb 9.3 oz), BP 120/62, Pulse 79, Temperature 36.9 C (98.4 F), RR 16, SpO2 100%, BMI 24.77 kg/(m^2). Focused Exam: appears well, R shoulder with swelling and erythema and slightly tender, op c lear, cta b, rrr no m/r/g, soft abd, no edema Intake/Output Summary (Last 24 hours) at 08/24/15 1539 Last data filed at 08/24/15 1500 Gross per 24 hour Intake 7562.1 ml Output 7180 ml Net 382.1 ml Recent Labs 08/22/15 0042 08/22/15 2331 08/24/15 0459 08/24/15 0936 NA 136 137 129* 137 K 3.8 4.0 4.2 -- CL 104 102 99 -- BICARB 25 28 23 -- BUN 8 9 10 -- CR 0.92 0.88 0.59* -- GLU 104* 98 149* -- CA 8.7 8.7 8.5* -- AST 15 13 11 -- ALT 34 32 26 -- AP 78 83 80 -- TBILI 0.4 0.5 0.5 -- TP 6.9 7.1 6.7 -- ALB 3.8 3.9 3.3* -- Recent Labs 08/22/15 0042 08/22/15 23308/24/15 0459 WBC 1.32* 1.32* 0.95* RBC 2.67* 2.74* 2.64* HB 7.7* 7.8* 7.6* HCT 21.8* 22.5* 20.8* PLT 44* 43* 29* NEUTROPERC 19.7* 51.3 89.6* LYMPHPERC 22.7 15.9* 6.9* MONOPERC 56.8* 31.9* 3.5 BASOPERC 0.8 0.9 0.0 EOSPERC 0.0* 0.0* 0.0* I spent 35 minutes including chart review and discussion with the ESTHELA. Greater than >50% of time spent in direct counseling and coordination of care including discussion of infx, pain , chemo, CINV, anti-emetics, and plan. EPIC DEPARTMENT: [id number] - [facility] Place of Service: - Inpatient Date of Service: 08/24/2015 Suggested CPT: 41321 - Subsequent, Detailed/High complex russell, Amira Beverly, TWISTING PRESS OPERATOR - 08/24/2015 2:58 PM PST Daily NPP Note - Transplant Admit [facility] Attending: Daniel Das MD [facility] Physician: Yari Garcia MD PCP: Pending Pcp ADDITION Date of Admission: 08/18/2015 Conditioning regimen: tBuCy Date of transplant: 08/26/2015 Donor: MMURD Reason for admission: tBuCy MMURD for refractory AML 24-Hr Events/Daily Plan: -Refractory AML: Adm for BuCy MMURD with Tacro + long-course MTX IST. -R Neck Trifusion infection s/p CVC removal on 08/22: Site less tender and erythematous toda y. -Vancomycin, will obtain trough this PM -Plan to replace Trifusion on Thurs AM prior to PBSCT: Per IR, will transfuse early that A M to keep plts >50K and have 1 PPH available for procedure -Follow BCx: NTD -Pancytopenia d/t disease and chemo: Standard transfusion threshold, no transfusions requir ed today -HypoNa, likely not sigifredo value: 129 with AM labs, repeat 137. Subjective: Neck still sore where his line used to be. Otherwise feeling ok. Objective: Last Vitals: BP 113/50 | Pulse 70 | Temp 36.4 C (97.5 F) | RR 16 | Ht 1.873 m (6' 1.75" ) | Wt 86.9 kg (191 lb 9.3 oz) | SpO2 99% | BMI 24.77 kg/(m^2) 24 Hour Vital Min/Max: Systolic (24hrs), Av mmHg, Min:108 mmHg, Max:129 mmHg Diastolic (24hrs), Av mmHg, Min:48 mmHg, Max:65 mmHg Pulse Min: 56 Max: 70 Temp Min: 36.4 C (97.5 F) Max: 37.4 C (99.3 F) Resp Min: 16 Max: 16 SpO2 Min: 94 % Max: 99 % Intake/Output Summary (Last 24 hours) at 08/24/15 1458 Last data filed at 08/24/15 1200 Gross per 24 hour Intake 7562.1 ml Output 7030 ml Net 532.1 ml Physical Exam: General: This is a male in no acute distress. HEENT: PERRL. Sclerae anicteric. Mucosa pink and moist without erythema or exudate. Skin: No rash, lesions noted. Chest: Lungs clear to auscultation bilat. CV: RRR, no murmurs. Abdomen: S/NT/ND with NABS. No HSM appreciated. Extremities: Pulses strong and equal bilaterally. No c/c/e. Neuro: Alert and oriented x 3. Grossly nonfocal exam. CVC: None. LUE midline catheter only. Recent Labs 08/22/154108/22/15233008/24/159 08/24/15 0936 NA 136 137 129* 137 K 3.8 4.0 4.2 -- CL 104 102 99 -- BICARB 25 28 23 -- BUN 8 9 10 -- CR 0.92 0.88 0.59* -- GLU 104* 98 149* -- CA 8.7 8.7 8.5* -- AST 15 13 11 -- ALT 34 32 26 -- AP 78 83 80 -- TBILI 0.4 0.5 0.5 -- TP 6.9 7.1 6.7 -- ALB 3.8 3.9 3.3* -- Recent Labs 08/22/154108/22/15233008/24/15 0459 WBC 1.32* 1.32* 0.95* RBC 2.67* 2.74* 2.64* HB 7.7* 7.8* 7.6* HCT 21.8* 22.5* 20.8* PLT 44* 43* 29* NEUTROPERC 19.7* 51.3 89.6* LYMPHPERC 22.7 15.9* 6.9* MONOPERC 56.8* 31.9* 3.5 BASOPERC 0.8 0.9 0.0 EOSPERC 0.0* 0.0* 0.0* Meds: Reviewed on rounds, see current MAR for medication list Past Medical History: Khurram Kelly is a 25 year old male admitted for initiation of pre-transplant conditioning with targeted busulfan and cytoxan prior to MM unrelated donor PBSCT for treatm ent of primary refractory AML. 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 He was evaluated at [facility] ED on 06/[address] angiogram negative [...] recurrent fevers, pericarditis and CBC abnl, jazlyn millard was referred to Oncology for additional evaluation. Marrow studies completed on 05/19/15 s howed a hypercellular marrow (80-90%) with 86% of blast equivalents, comprised of myeloblast s, monoblasts and promonocytes. Concurrent flow cytometry detected 23% myeloid blasts and 60 % immature monocytic cells supporting this diagnosis. 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 He was referred to [facility] for further evaluation and man agement of his newly dx'd AML. Pt was admitted to [facility] on 05/26/15. Peripheral blood was [...] CD34, variable CD56, variable CD117, and dim [id number] mickey; promonocyte immunophenotype (70% by flow): CD11b, [...] No recurrence of oral cavity/upper chest pain. Hospitalization History: Hematology: #AML Conditioning regimen: tBuCy -Busulfan 1 mg/kg/dose PO every 6 hours on days -6, -5 and -4 -Clonazepam and Levetiracetam as prophylaxis for busulfan-induced seizures -Cyclophosphamide 60 mg/kg IV over 2 hours daily on days -3 and -2 -Mesna 60 mg/kg/day as a continuous infusion beginning just prior to the first dose of cy toxan and completing 24 hours after the second dose Stem cell transplant -Day: -2 -Due for infusion of MMUD product on 08/26/2015. #Pancytopenia d/t disease and chemo -Antimicrobials as below -See supportive care #Supportive Care: Growth Factor: Due to begin daily Neupogen dosing on Day +12 (09/06) and continue until AN C > 1500 x 2 consecutive days. Labs: Continue to check CBC with diff daily Transfusion parameters: -Transfuse PRBCs for HCT <21% if asymptomatic OR <24% if symptomatic -Transfuse PPH for platelet count <10,000 or sooner for s/s active bleeding GVHD: not applicable at this time Prophylaxis: -Tacro starts on Day -2; Check levels twice weekly and PRN. PharmD to titrate to goal. Goa l level: -MTX 15 mg/m2 IV x 1 on Day +1, then MTX 10 mg/m2 IV on Days +3, +6, and +11 -No steroids unless he develops GvHD Staging: Skin: Grade N/A Gut: Grade N/A Liver: Grade N/A Overall stage: N/A Pulmonary: Pretransplant PFTs completed on 08/09/2015 showed FEV1 of 99% predicted, FVC of 110% predicted and DLCO of 82% predicted. No acute issues Cardiovascular: Pretransplant MUGA completed on 08/10/2015 showed a LVEF of 55-60%. No acute issues GI: #Constipation - Senna Plus, Colace, Lactulose PRN COMMODITY SUPERVISOR -Colace 100 mg BID -Senna Plus 1 tab daily #Risk for Mucositis - Not an active issue -Continue oral care with normal saline rinses frequently Renal: No acute issues Musculoskeletal: No acute issues Neuro/Psych: #Depression - Zoloft COMMODITY SUPERVISOR -Zoloft 25 mg daily #Anxiety - Xanax PRN COMMODITY SUPERVISOR -Xanax 1 mg TID PRN Skin: No acute issues Endocrine: No acute issues Infectious Disease: #R Neck Trifusion infection s/p CVC removal on 08/22: Site less tender and erythematous toda y. -Vancomycin (08/21- ) -Plan to replace Trifusion on Thurs AM prior to PBSCT -Follow BCx: NTD #Prophylaxis: Bacterial: Levofloxacin starts day -1 -For first neutropenic fever, preciado cx, CXR, d/c Levofloxacin and begin Cefepime for empiric broadspectrum coverage. Fungal: Fluconazole starts day 0 Viral: Valacyclovir starts day +1; will switch to Acyclovir upon discharge and continue un til Day +365 PCP: Bactrim day of admission through day -1 then Pentamidine prior to discharge #Routine infectious disease testing -CMV by PCR weekly, starting after day 0. (Pt and donor CMV+) Lab Results Component Value Date CMVQUANTPCR Undetected 08/09/2015 CMVQUANTPCR Undetected 07/15/2015 -Asp. Galactomannan weekly, starting after day 0. Lab Results Component Value Date GALACTO Negative 08/22/2015 -IgG every other week and repleted if falls <300 Lab Results Component Value Date IGG 780 08/18/2015 Fluid/Nutrition/Lytes: #Nutrition: Low bacteria diet #Fluid: NS at 100 mL/hr #Lytes: -Continue to check chemistries daily -Replace per supportive care protocol. Disposition: Pt with AML, adm for BuCy MMURD PBSCT. Anticipate 3-4 week hospitalization. ORLY Bianchi [address] Mailcode: [place] [address] Humberto Rodas MD - 08/23/2015 8:32 AM PSTFormatting of this note might be different from the shanna lAna BMT/Leukemia Service Attending Progress Note [facility] Khurram Kelly is a 25 y.o. Male Patient Active Problem List Diagnosis Acute myeloid leukemia (AML), M4 (HCC)- primary induction failure [facility] RESEARCH PROTOCOL PATIENT (RESPRO) Immunocompromised state (HCC) Electrolyte abnormality Pancytopenia due to chemotherapy (HCC) Acute myeloid leukemia (AML), M4 (HCC) Parotiditis Pain of cheek Rash and nonspecific skin eruption Folliculitis Renal insufficiency ADHD (attention deficit hyperactivity disorder) 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) 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) Hypoproliferative anemia (HCC) Complications of bone marrow transplant (HCC) Date: 08/23/2015 Day: -3. Diagnosis: primary induction failure AML Subjective: tolerated busulfan well; no nausea or vomiting; no neurologic sx; no sx of lightheadness Beginning fluid hydration for CTX. friction paint machine tender at Right indwelling cath site- line removed 24 hrs ago.......still with decre ased ROM of neck due to pain; vanco started 08/21, with Pharm assisted dosing,without much im provement No fevers ROS: remainder is negative PFSH: significant for at bedside Exam: Last Vitals: BP 112/51 | Pulse 61 | Temp 37.2 C (99 F) | RR 16 | Ht 1.873 m (6' 1.75") | Wt 84 kg (185 lb 3 oz) | SpO2 97% | BMI 23.94 kg/(m^2) 24 hour Vitals min/max : Systolic (24hrs), Av mmHg, Min:109 mmHg, Max:127 mmHg Diastolic (24hrs), Av mmHg, Min:49 mmHg, Max:67 mmHg Intake/Output Summary (Last 24 hours) at 08/23/15 0834 Last data filed at 08/23/15 0829 Gross per 24 hour Intake 5404.5 ml Output 4250 ml Net 1154.5 ml Temp (24hrs), Av.1 C (98.7 F), Min:36.9 C (98.4 F), Max:37.2 C (99 F) Wearing Team [employer] shayy shirt General: looks in pain with movement of neck; Lying in bed resting Skin: no rash, catheter exit site tenderness at suture site above clavicle and 1/2 way down to exit site. No drainage; some erythema and swelling Eyes: normal, PERRLA and EOM's intact Mouth: normal mucosa and no oral lesions Neck: - restricted ROM due to catheter site discomfort Lymph: No palpable peripheral adenopathy Chest: Clear to auscultation Heart: RRR, no murmur, S1/S2 normal Abdomen: Soft and nontender without masses or hepatosplenomegaly Extrem: no pretibial/pedal edema; new midline in left brachial vein in Left arm Neuro: alert, oriented x 3, cranial nerves intact, motor/sens non-focal; no nystagmus Pain Scale (0-10): 0 Lab/X-ray findings: CBC with diff last 72 hours (or 3 results) Recent Labs 08/20/15230208/22/154108/22/15 2331 WBC 1.20* 1.32* 1.32* HB 7.2* 7.7* 7.8* HCT 20.6* 21.8* 22.5* PLT 61* 44* 43* NEUTROPERC 52.2 19.7* 51.3 LYMPHPERC 16.8* 22.7 15.9* MONOPERC 28.3* 56.8* 31.9* BASOPERC 0.0 0.8 0.9 EOSPERC 0.0* 0.0* 0.0* Liver Tests: Last 72 hours (or 3 results) Recent Labs 08/20/15230208/22/154108/22/15 2331 AST 13 15 13 ALT 35 34 32 TBILI 0.3 0.4 0.5 AP 75 78 83 ALB 3.9 3.8 3.9 TP 7.0 6.9 7.1 Chemistries: Last 72 Hours (or 3 results): Recent Labs 08/20/15230208/22/154108/22/15 2331 NA 138 136 137 K 3.7 3.8 4.0 CL 105 104 102 BICARB 27 25 28 BUN 9 8 9 CR 0.96 0.92 0.88 GLU 97 104* 98 CA 8.7 8.7 8.7 MG 2.0 1.8 2.0 PO4 4.5 4.1 4.3 Assessment/Plan: I certify that the history (as documented today) is reviewed, patient interviewed and perso rasta examined by me. Heme: completed busulfan x 16 doses;. Ctx begins today on d-3; Continue antiseizure meds for 24 hrs past last busulfan dose; Continue antiemetics ID: afebrile, on Continues on prophylactic anti-infective agents. continue vanco for probable tunnel traxt infection. Intervenitional radiology performed l ine removal and sent tip for culture. Temp line for fluids, and for chemo and MESNA has been placed GI: No n/v; Gentle laxatives prn FEN: adq fluid, electrolye, caloric homeostasis; FLUID hydration for cytoxan to decrease ri sk of hemmorhagic cystitis GVHD: will receive 2 drug prophylaxis with his refractory disease Other: Will request Tx ID input - Does he need GNR coverage with his previous history and ongoing inflammatory state? Continue full supports Yung Zhao MD [facility] [id number] [facility] Mailcode: [address] [place] [address] [facility] DEPARTMENT: [id number] - [facility] FACULT[facility] MP Place of Service: [id number] - Inpatient Date of Service: 08/23/15 Modifiers: None Suggested CPT: 25067 - Subsequent, Detailed/High complex Lobo Shepherd M D - 08/22/2015 12:57 PM PSTBRIEF INTERVENTIONAL RADIOLOGY PROCEDURE NOTE DATE: 08/22/2015 12:57 PM PROCEDURE: Tunnerled Catheter Removal PRE-PROCEDURE DIAGNOSIS: Tunneled Trifusion Catheter, suspected tunnel infection POST-PROCEDURE DIAGNOSIS: Tunneled Catheter Removal IR FELLOW: Lobo Amin MD ACCESS: Right internal jugular MEDICATIONS: Lidocaine/Epinephrine local anesthesia COMPLICATION(S): None immediate FINDINGS: 1. Right internal jugular trifusion catheter removed at bedside without complication. Cath eter tip sent for culture. 2. Hemostasis achieved with 5 minutes of manual compression. Please see fully dictated report for further details. Yung Rodas M D - 08/22/2015 9:07 AM PST BMT/Leukemia Service Attending Progress Note [facility] Khurram Kelly is a 25 y.o. 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 Diagnosis: primary induction failure AML Subjective: tolerating busulfan well; no nausea or vomiting; no neurologic sx; no sx of lig htheadness Over past 24 hrs, developed tender Right indwelling cath site; vanco started last evening,w ithout much improvement Now, with pain in moving neck and in moving in room. No fevers ROS: remainder is negative PFSH: significant for at bedside Exam: Last Vitals: BP 127/67 | Pulse 64 | Temp 36.9 C (98.4 F) | RR 16 | Ht 1.873 m (6' 1.75" ) | Wt 87 kg (191 lb 12.8 oz) | SpO2 96% | BMI 24.8 kg/(m^2) 24 hour Vitals min/max : Systolic (24hrs), Av mmHg, Min:108 mmHg, Max:129 mmHg Diastolic (24hrs), Av mmHg, Min:59 mmHg, Max:70 mmHg Intake/Output Summary (Last 24 hours) at 08/22/15 1309 Last data filed at 08/22/15 1100 Gross per 24 hour Intake 4079 ml Output 3355 ml Net 724 ml Temp (24hrs), Av.1 C (98.7 F), Min:36.9 C (98.4 F), Max:37.2 C (99 F) General: looks in pain with movement of neck Skin: no rash, catheter exit site tenderness marked, particularly at suture site above clav icle. No drainage; ,some erythema; alopecia Eyes: normal, PERRLA and EOM's intact Mouth: normal mucosa and no oral lesions Neck: - restricted ROM due to catheter site discomfort Lymph: No palpable peripheral adenopathy Chest: Clear to auscultation Heart: RRR, no murmur, S1/S2 normal Abdomen: Soft and nontender without masses or hepatosplenomegaly Extrem: no pretibial/pedal edema Neuro: alert, oriented x 3, cranial nerves intact, motor/sens non-focal; no nystagmus Pain Scale (0-10): 0 Lab/X-ray findings: CBC with diff last 72 hours (or 3 results) Recent Labs 08/19/15 2345 08/20/15 2303 08/22/15 0042 WBC 1.57* 1.20* 1.32* HB 7.5* 7.2* 7.7* HCT 21.6* 20.6* 21.8* PLT 80* 61* 44* NEUTROPERC 53.0 52.2 19.7* BANDSPCT 0.0 -- -- LYMPHPERC 17.0* 16.8* 22.7 MONOPERC 30.0* 28.3* 56.8* BASOPERC 0.0 0.0 0.8 EOSPERC 0.0* 0.0* 0.0* Liver Tests: Last 72 hours (or 3 results) Recent Labs 08/19/15 2345 08/20/15 2303 08/22/15 0042 AST 18 13 15 ALT 39 35 34 TBILI 0.4 0.3 0.4 AP 76 75 78 ALB 4.2 3.9 3.8 TP 7.2 7.0 6.9 Chemistries: Last 72 Hours (or 3 results): Recent Labs 08/19/15 2345 08/20/15 2303 08/22/15 0042 NA 137 138 136 K 4.1 3.7 3.8 CL 105 105 104 BICARB 26 27 25 BUN 10 9 8 CR 1.07 0.96 0.92 GLU 101* 97 104* CA 8.5* 8.7 8.7 MG 2.0 2.0 1.8 PO4 4.8* 4.5 4.1 Assessment/Plan: I certify that the history (as documented today) is reviewed, patient interviewed and perso rasta examined by me. Heme: continue busulfan q 6 hrs;. Ctx begins tomorrow on d-3; Continue antiseizure meds; Continue antiemetics ID: afebrile, on Continues on prophylactic anti-infective agents. But also vanco started fo r probable tunnel traxt infection. Will have Intervenitional radiology evaluate for line re moval. Send tip for culture. 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 Diagnosis: primary induction failure AML Subjective: tolerating busulfan well; no nausea or vomiting; no neurologic sx; no sx of lig htheadness; no sx active infection ROS: remainder is negative PFSH: significant for at bedside Exam: Last Vitals: BP 128/70 | Pulse 68 | Temp 37.1 C (98.8 F) | RR 18 | Ht 1.873 m (6' 1.75" ) | Wt 85.2 kg (187 lb 13.3 oz) | SpO2 100% | BMI 24.29 kg/(m^2) 24 hour Vitals min/max : Systolic (24hrs), Av mmHg, Min:112 mmHg, Max:134 mmHg Diastolic (24hrs), Av mmHg, Min:56 mmHg, Max:70 mmHg Pulse Min: 57 Max: 78 Temp Min: 36.6 C (97.9 F) Max: 37.4 C (99.3 F) Resp Min: 16 Max: 18 SpO2 Min: 98 % Max: 100 % Intake/Output Summary (Last 24 hours) at 08/21/15 1504 Last data filed at 08/21/15 1400 Gross per 24 hour Intake 3557 ml Output 5200 ml Net -1643 ml General: looks comfortable Skin: no rash, no catheter exit site tenderness and alopecia Eyes: normal, PERRLA and EOM's intact Mouth: normal mucosa and no oral lesions Neck: supple Lymph: No palpable peripheral adenopathy Chest: Clear to auscultation Heart: RRR, no murmur, S1/S2 normal Abdomen: Soft and nontender without masses or hepatosplenomegaly Extrem: no pretibial/pedal edema Neuro: alert, oriented x 3, cranial nerves intact, motor/sens non-focal; no nystagmus Pain Scale (0-10): 0 Lab/X-ray findings: CBC with diff last 72 hours (or 3 results) Recent Labs 08/19/1542908/19/15234408/20/15 2303 WBC 1.34* 1.57* 1.20* HB 7.2* 7.5* 7.2* HCT 20.8* 21.6* 20.6* PLT 96* 80* 61* NEUTROPERC 16.5* 53.0 52.2 BANDSPCT -- 0.0 -- LYMPHPERC 26.1 17.0* 16.8* MONOPERC 56.7* 30.0* 28.3* BASOPERC 0.0 0.0 0.0 EOSPERC 0.0* 0.0* 0.0* Liver Tests: Last 72 hours (or 3 results) Recent Labs 08/19/1542908/19/15234408/20/15 2303 AST 20 18 13 ALT 38 39 35 TBILI 0.5 0.4 0.3 AP 77 76 75 ALB 3.8 4.2 3.9 TP 6.8 7.2 7.0 Chemistries: Last 72 Hours (or 3 results): Recent Labs 08/19/1542908/19/15234408/20/15 2303 NA 139 137 138 K 4.1 4.1 3.7 CL 106 105 105 BICARB 26 26 27 BUN 11 10 9 CR 0.88 1.07 0.96 GLU 97 101* 97 CA 8.6 8.5* 8.7 MG 2.1 2.0 2.0 PO4 5.0* 4.8* 4.5 Assessment/Plan: I certify that the history (as documented today) is reviewed, patient interviewed and perso rasta examined by me. Heme: continue busulfan q 6 hrs;. Ctx begins on d-3; Continue antiseizure meds; Continue antiemetics ID: afebrile, on Continues on prophylactic anti-infective agents. 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 Other: discussed the [employer] paper with pt and ; Explained that PIF was surprisingly not assoc with higher risk of failure after multivariate analysis of outcome factors in thi s setting Continue full supports Yung Zhao MD [facility] [id number] [facility] Mailcode: [address] [place] [address] Lobo Goins M D - 08/20/2015 10:31 PM PST Chief complaint-patient receiving oral busulfan for bmt prep with antibiotics, mild constip ation Physical exam Last Vitals: BP 134/61 | Pulse 78 | Temp 37.2 C (99 F) | RR 16 | Ht 1.873 m (6' 1.75") | Wt 85.2 kg (187 lb 13.3 oz) | SpO2 99% | BMI 24.29 kg/(m^2) 24 Hour Vital Min/Max: Systolic (24hrs), Av mmHg, Min:110 mmHg, Max:134 mmHg Diastolic (24hrs), Av mmHg, Min:57 mmHg, Max:64 mmHg Pulse Min: 59 Max: 78 Temp Min: 36.9 C (98.4 F) Max: 37.2 C (99 F) Resp Min: 16 Max: 18 SpO2 Min: 97 % Max: 100 % Intake/Output Summary (Last 24 hours) at 08/20/152231 Last data filed at 08/20/15 2100 Gross per 24 hour Intake 3350 ml Output 4600 ml Net -1250 ml Head alopecia Eyes eomi, perrla Oral no thrush Neck supple, trachea midling Lymph nodes none palpable Skin no rash Lungs clear Heart rrr s1s2 Abdomen soft nontender, normal bowel sounds Extremities no edema Neuro normal gait, cn 2-12 intact Psych engaged affect Results for KHURRAM KELLY ( ) as of 08/20/2015 22:33 Ref. Range 08/19/2015 23:45 SODIUM, PLASMA (LAB) Latest Range: 134-143 mmol/L 137 POTASSIUM, PLASMA (LAB) Latest Range: 3.4-5.0 mmol/L 4.1 POTASSIUM CMNT No range found No Hemo CHLORIDE, PLASMA (LAB) Latest Range: 97-108 mmol/L 105 TOTAL CO2, PLASMA (LAB) Latest Range: 22-29 mmol/L 26 ANION GAP Latest Units: mmol/L 6 ANION GAP(ALB CORRECTED) Latest Range: 4-11 mmol/L 5 BUN, PLASMA (LAB) Latest Range: 6-20 mg/dL 10 CREATININE PLASMA (LAB) Latest Range: 0.7-1.3 mg/dL 1.07 EGFR - MEXICAN Latest Range: >60 mL/min >60 EGFR NON -MEXICAN Latest Range: >60 mL/min >60 GLUCOSE, PLASMA (LAB) Latest Range: 60-99 mg/dL 101 (H) CALCIUM, PLASMA (LAB) Latest Range: 8.6-10.2 mg/dL 8.5 (L) MAGNESIUM,PLASMA Latest Range: 1.8-2.5 mg/dL 2.0 PHOSPHORUS, PLASMA (LAB) Latest Range: 2.4-4.7 mg/dL 4.8 (H) AST(SGOT) Latest Range: 0-41 U/L 18 AST CMNT No range found No Hemo ALT (SGPT) Latest Range: 0-60 U/L 39 ALK PHOS Latest Range: 41-99 U/L 76 BILIRUBIN TOTAL Latest Range: 0.3-1.2 mg/dL 0.4 BILI T CMNT No range found No Hemo TOTAL PROTEIN, PLASMA (LAB) Latest Range: 6.1-7.9 g/dL 7.2 ALBUMIN, PLASMA (LAB) Latest Range: 3.5-4.7 g/dL 4.2 WHITE CELL COUNT Latest Range: 4.40-11.00 K/cu mm 1.57 (L) RED CELL COUNT Latest Range: 4.50-6.00 M/cu mm 2.64 (L) HEMOGLOBIN Latest Range: 13.5-17.5 g/dL 7.5 (L) HEMATOCRIT Latest Range: 41.0-53.0 % 21.6 (L) MCV Latest Range: 80.0-96.0 fL 81.8 MCHC Latest Range: 33.0-35.5 g/dL 34.7 RDW SD Latest Range: 35.1-46.3 fL 37.9 PLATELET COUNT Latest Range: 150-400 K/cu mm 80 (L) MPV Latest Range: 9.7-12.3 fL 10.3 NRBC% Latest Range: 0.0-0.3 % 0.0 NRBC# Latest Range: 0.00-0.02 K/cu mm 0.00 NEUTROPHIL % Latest Range: 50.0-70.0 % 53.0 BANDS % Latest Range: 0.0-10.0 % 0.0 LYMPHOCYTE % Latest Range: 18.0-42.0 % 17.0 (L) MONOCYTE % Latest Range: 3.5-9.0 % 30.0 (H) EOS % Latest Range: 1.0-3.0 % 0.0 (L) BASO % Latest Range: 0.0-2.0 % 0.0 IMMATURE GRANULOCYTE% Latest Range: 0.0-0.6 % 0.0 ATYPICAL CELL % Latest Range: 0.0% % 0.0 NEUTROPHIL # Latest Range: 1.80-7.70 K/cu mm 0.83 (L) BANDS # Latest Range: 0.00-1.10 K/cu mm 0.00 LYMPHOCYTE # Latest Range: 1.00-4.80 K/cu mm 0.27 (L) MONOCYTE # Latest Range: 0.10-0.90 K/cu mm 0.47 Busulfan [id number] dose reduction Current Inpatient Medications Medication Dose Route Frequency acetaminophen (TYLENOL) tablet 325-650 mg 325-650 mg oral Q4H PRN [START ON 08/26/2015] acetaminophen (TYLENOL) tablet 650 mg 650 mg oral ONE TIME DURING VISIT [START ON 08/24/2015] acetaminophen (TYLENOL) tablet 650 mg 650 mg oral ONCE [START ON 09/07/2015] acetaminophen (TYLENOL) tablet 650 mg 650 mg oral Q14D [START ON 08/27/2015] acyclovir (ZOVIRAX) 500 mg in NaCl 0.9 % IV 250 mg/m2 (Order-Spec ific) intravenous Q12H PRN allopurinol (ZYLOPRIM) tablet 300 mg 300 mg oral DAILY ALPRAZolam (XANAX) tablet 1 mg 1 mg oral TID PRN alteplase (CATHFLO ACTIVASE) injection 2 mg 2 mg Intracatheter PRN aluminum-magnesium hydroxide-simethicone (MAALOX; MYLANTA) 200-200-20 mg/5 mL suspensio n 30 mL 30 mL oral Q3H PRN busulfan (MYLERAN) capsule 56 mg 56 mg oral Q6H ceFEPime IV 2 grams in NS (MB+) 2 g intravenous Q8H PRN clonazePAM (KLONOPIN) tablet 0.5 mg 0.5 mg oral BID [START ON 08/23/2015] cyclophosphamide (CYTOXAN) 4,900 mg in NaCl 0.9 % IV 4,900 mg int ravenous Q24H [START ON 08/23/2015] dexamethasone (DECADRON) tablet 12 mg 12 mg oral ONCE [START ON 08/24/2015] dexamethasone (DECADRON) tablet 8 mg 8 mg oral Q24H diphenhydrAMINE (BENADRYL) capsule 25 mg 25 mg oral Q6H PRN diphenhydrAMINE (BENADRYL) capsule 25 mg 25 mg oral Q4H PRN [START ON 08/26/2015] diphenhydrAMINE (BENADRYL) capsule 50 mg 50 mg oral ONE TIME DURI NG VISIT [START ON 08/24/2015] diphenhydrAMINE (BENADRYL) injection 25 mg 25 mg intravenous ONCE [START ON 09/07/2015] diphenhydrAMINE (BENADRYL) injection 25 mg 25 mg intravenous Q14D diphenhydrAMINE (BENADRYL) injection 25 mg 25 mg intravenous Q4H PRN [START ON 08/26/2015] diphenhydrAMINE (BENADRYL) injection 50 mg 50 mg intravenous ONE TIME DURING VISIT [START ON 08/26/2015] diphenhydrAMINE (BENADRYL) injection 50 mg 50 mg intravenous PRN [id number] (SPECIAL MOUTHWASH) suspension (compound) 10-15 mL 10 -15 mL oral Q1H PRN docusate sodium (COLACE) capsule 100 mg 100 mg oral BID [START ON 08/26/2015] DOPamine (INOTROPIN) 400 mg/250 ml (1.6 mg/mL) IV infusion (RTU) 5 mcg/kg/min (Order-Specific) intravenous PRN [START ON 08/26/2015] EPINEPHrine (ADRENALIN) injection 0.3 mg 0.3 mg subcutaneous PRN [START ON 09/07/2015] filgrastim (NEUPOGEN) injection 480 mcg 5 mcg/kg (Treatment Plan A ctual) subcutaneous QPM AT 1700 [START ON 08/26/2015] fluconazole (DIFLUCAN) tablet 400 mg 400 mg oral DAILY [START ON 08/26/2015] fluconazole IV 400 mg IN NaCl (RTU) 400 mg intravenous DAILY PRN [START ON 08/23/2015] fosaprepitant (EMEND) 150 mg in NaCl 0.9 % IV 150 mg intravenous ONCE glycerin-mineral oil (LUBRIDERM SENSITIVE LANOLIN FREE) lotion topical Q2H PRN haloperidol (HALDOL) tablet 0.5-2 mg 0.5-2 mg oral Q4H PRN haloperidol lactate (HALDOL) injection 0.5-2 mg 0.5-2 mg intravenous Q4H PRN heparin 10 unit/mL IV flush syringe 50 Units 50 Units intravenous PRN [START ON 08/26/2015] hydrocortisone (CORTEF) tablet 100 mg 100 mg oral ONE TIME DURING VISIT [START ON 08/26/2015] hydrocortisone sodium succinate (PF) (SOLU-CORTEF) injection 100 m g 100 mg intravenous PRN [START ON 08/24/2015] immune globulin (IGG) (GAMMAGARD LIQUID) IV 5% 15 g intravenous O NCE [START ON 09/07/2015] immune globulin (IGG) (GAMMAGARD LIQUID) IV 5% 15 g intravenous Q1 4D lactulose (ENULAC) liquid 10-20 g 15-30 mL oral TID PRN levETIRAcetam (KEPPRA) tablet 500 mg 500 mg oral BID [START ON 08/25/2015] levofloxacin (LEVAQUIN) tablet 500 mg 500 mg oral DAILY loperamide (IMODIUM) capsule 2 mg 2 mg oral PRN magnesium hydroxide (MILK OF MAGNESIA) suspension 30 mL 30 mL oral Q6H PRN magnesium sulfate in water IV (RTU) 4 g 4 g intravenous PRN magnesium sulfate IV 8 g 8 g intravenous PRN [START ON 08/23/2015] mesna (MESNEX) 4,900 mg in NaCl 0.9 % IV 4,900 mg intravenous Q24 H [START ON 08/29/2015] methotrexate (PF) injection 20 mg 20 mg intravenous ONCE [START ON 09/01/2015] methotrexate (PF) injection 20 mg 20 mg intravenous ONCE [START ON 09/06/2015] methotrexate (PF) injection 20 mg 20 mg intravenous ONCE [START ON 08/27/2015] methotrexate (PF) injection 30 mg 30 mg intravenous ONCE morphine injection 1-3 mg 1-3 mg intravenous Q2H PRN [START ON 08/26/2015] NaCl 0.9 % solution 100-2,000 mL intravenous PRN NaCl 0.9 % solution 150 mL/hr intravenous CONTINUOUS [START ON 08/22/2015] NaCl 0.9 % solution 150 mL/hr intravenous CONTINUOUS nystatin-zinc oxide-lidocaine (NDX) ointment (compound) topical Q1H PRN omeprazole (PRILOSEC) capsule 40 mg 40 mg oral DAILY [START ON 08/23/2015] ondansetron (ZOFRAN) injection 8 mg 8 mg intravenous Q12H ondansetron (ZOFRAN) tablet 8 mg 8 mg oral Q6H oxyCODONE (immediate release) (ROXICODONE) tablet 15-30 mg 15-30 mg oral Q4H PRN oxyCODONE CR (OXYCONTIN) tablet 10 mg 10 mg oral Q12H (Scheduled) [START ON 09/20/2015] pentamidine (PENTAM) IV 300 mg 300 mg intravenous ONE TIME DURING VISIT polyethylene glycol (MIRALAX) powder 17 g 17 g oral DAILY PRN potassium chloride IV (central line) 40 mEq 40 mEq intravenous PRN And potassium chloride IV (central line) 60 mEq 60 mEq intravenous PRN potassium chloride SR (K-DUR) tablet 40 mEq 40 mEq oral PRN potassium phosphate IV 30 mmol 30 mmol intravenous PRN And potassium phosphate IV 40 mmol 40 mmol intravenous PRN prochlorperazine (COMPAZINE) injection 5-10 mg 5-10 mg intravenous Q4H PRN [START ON 08/23/2015] prochlorperazine (COMPAZINE) tablet 10 mg 10 mg oral Q6H prochlorperazine (COMPAZINE) tablet 5-10 mg 5-10 mg oral Q4H PRN ramelteon (ROZEREM) tablet 8 mg 8 mg oral HS PRN saliva substitute (MOUTH KOTE) spray 1 spray 1 spray oral Q1H PRN senna-docusate (SENOKOT S) 8.6-50 mg 1 tablet 1 tablet oral DAILY senna-docusate (SENOKOT S) 8.6-50 mg 1-2 tablet 1-2 tablet oral Q12H PRN sertraline (ZOLOFT) tablet 25 mg 25 mg oral DAILY sodium chloride (OCEAN) 0.65 % nasal spray 1 spray 1 spray nasal Q1H PRN sodium phosphate IV 30 mmol 30 mmol intravenous PRN sodium phosphate IV 40 mmol 40 mmol intravenous PRN [START ON 08/24/2015] tacrolimus IV intermittent (100 mL dilution) 1.2 mg intravenous Q 12H trimethoprim-sulfamethoxazole (BACTRIM DS,SEPTRA DS) 160-800 mg tablet 1 tablet 1 tabl et oral BID ursodiol (ACTIGALL) capsule 300 mg 300 mg oral BID [START ON 08/27/2015] valACYclovir (VALTREX) tablet 500 mg 500 mg oral BID Patients Hospital Problem List: Active Hospital Problems 1) Acute myeloid leukemia (AML), M4 (HCC) 2) ADHD (attention deficit hyperactivity disorder) 3) 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) 4) 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) 5) Hypoproliferative anemia (HCC) 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) Impression and plan AML receiving bucy bmt prep busulan dose adjusted downward given auc Immunodeficiency on bactrim hypoproliferataive anemia-transfuse irradiated rbc ADHD follow-alert social work IV hydration to prevent tumor lysis induced renal dysfunction, allopurnol to prevent gout- Lobo Rizzo MD [facility] [id number] [facility] Mailcode: [facility] [place] [address] Lobo Goins MD - 08/19/2015 9:53 PM PST Chief complaint-patient receiving oral busulfan for bmt prep with antibiotics Physical exam Last Vitals: BP 124/60 | Pulse 61 | Temp 36.7 C (98.1 F) | RR 18 | Ht 1.873 m (6' 1.75" ) | Wt 85.2 kg (187 lb 13.3 oz) | SpO2 100% | BMI 24.29 kg/(m^2) 24 Hour Vital Min/Max: Systolic (24hrs), Av mmHg, Min:109 mmHg, Max:131 mmHg Diastolic (24hrs), Av mmHg, Min:56 mmHg, Max:69 mmHg Pulse Min: 52 Max: 67 Temp Min: 36.4 C (97.5 F) Max: 37.1 C (98.8 F) Resp Min: 16 Max: 18 SpO2 Min: 98 % Max: 100 % Intake/Output Summary (Last 24 hours) at 08/19/152156 Last data filed at 08/19/15 210 Gross per 24 hour Intake 6430 ml Output 4450 ml Net 1980 ml Head alopecia Eyes eomi, perrla Oral no thrush Neck supple, trachea midling Lymph nodes none palpable Skin no rash Lungs clear Heart rrr s1s2 Abdomen soft nontender, normal bowel sounds Extremities no edema Neuro normal gait Psych engaged affect Results for KHURRAM KELLY ( ) as of 08/19/2015 21:59 Ref. Range 08/19/2015 04:30 08/19/2015 05:43 SODIUM, PLASMA (LAB) Latest Range: 134-143 mmol/L 139 POTASSIUM, PLASMA (LAB) Latest Range: 3.4-5.0 mmol/L 4.1 POTASSIUM CMNT No range found No Hemo CHLORIDE, PLASMA (LAB) Latest Range: 97-108 mmol/L 106 TOTAL CO2, PLASMA (LAB) Latest Range: 22-29 mmol/L 26 ANION GAP Latest Units: mmol/L 7 ANION GAP(ALB CORRECTED) Latest Range: 4-11 mmol/L 7 BUN, PLASMA (LAB) Latest Range: 6-20 mg/dL 11 CREATININE PLASMA (LAB) Latest Range: 0.7-1.3 mg/dL 0.88 EGFR - MEXICAN Latest Range: >60 mL/min >60 EGFR NON -MEXICAN Latest Range: >60 mL/min >60 GLUCOSE, PLASMA (LAB) Latest Range: 60-99 mg/dL 97 CALCIUM, PLASMA (LAB) Latest Range: 8.6-10.2 mg/dL 8.6 MAGNESIUM,PLASMA Latest Range: 1.8-2.5 mg/dL 2.1 PHOSPHORUS, PLASMA (LAB) Latest Range: 2.4-4.7 mg/dL 5.0 (H) URIC ACID, PLASMA (LAB) Latest Range: 3.7-8.0 mg/dL 2.6 (L) AST(SGOT) Latest Range: 0-41 U/L 20 AST CMNT No range found No Hemo ALT (SGPT) Latest Range: 0-60 U/L 38 ALK PHOS Latest Range: 41-99 U/L 77 LD TOTAL, PLASMA Latest Range: <=250 U/L 166 LD CMNT No range found No Hemo BILIRUBIN TOTAL Latest Range: 0.3-1.2 mg/dL 0.5 BILI T CMNT No range found No Hemo TOTAL PROTEIN, PLASMA (LAB) Latest Range: 6.1-7.9 g/dL 6.8 ALBUMIN, PLASMA (LAB) Latest Range: 3.5-4.7 g/dL 3.8 WHITE CELL COUNT Latest Range: 4.40-11.00 K/cu mm 1.34 (L) RED CELL COUNT Latest Range: 4.50-6.00 M/cu mm 2.57 (L) HEMOGLOBIN Latest Range: 13.5-17.5 g/dL 7.2 (L) HEMATOCRIT Latest Range: 41.0-53.0 % 20.8 (L) MCV Latest Range: 80.0-96.0 fL 80.9 MCHC Latest Range: 33.0-35.5 g/dL 34.6 RDW SD Latest Range: 35.1-46.3 fL 34.7 (L) PLATELET COUNT Latest Range: 150-400 K/cu mm 96 (L) MPV Latest Range: 9.7-12.3 fL 10.1 NRBC% Latest Range: 0.0-0.3 % 0.0 NRBC# Latest Range: 0.00-0.02 K/cu mm 0.00 NEUTROPHIL % Latest Range: 50.0-70.0 % 16.5 (L) LYMPHOCYTE % Latest Range: 18.0-42.0 % 26.1 MONOCYTE % Latest Range: 3.5-9.0 % 56.7 (H) EOS % Latest Range: 1.0-3.0 % 0.0 (L) BASO % Latest Range: 0.0-2.0 % 0.0 IMMATURE GRANULOCYTE% Latest Range: 0.0-0.6 % 0.7 (H) NEUTROPHIL # Latest Range: 1.80-7.70 K/cu mm 0.22 (L) LYMPHOCYTE # Latest Range: 1.00-4.80 K/cu mm 0.35 (L) MONOCYTE # Latest Range: 0.10-0.90 K/cu mm 0.76 EOS # Latest Range: 0.00-0.50 K/cu mm 0.00 BASO # Latest Range: 0.00-0.10 K/cu mm 0.00 IMMATURE GRANULOCYTE# Latest Range: 0.00-0.03 K/cu mm 0.01 PRODUCT DESCRIPTION No range found -1 RED BLOOD CE... PRODUCT UNIT # No range found [id number] UNIT ABO No range found A UNIT [facility] No range found POS STATUS OF UNIT No range found Issued EXPIRATION DATE No range found [id number] BLOOD TYPE BARCODE No range found 6200 Current Inpatient Medications Medication Dose Route Frequency acetaminophen (TYLENOL) tablet 325-650 mg 325-650 mg oral Q4H PRN [START ON 08/26/2015] acetaminophen (TYLENOL) tablet 650 mg 650 mg oral ONE TIME DURING VISIT [START ON 08/24/2015] acetaminophen (TYLENOL) tablet 650 mg 650 mg oral ONCE [START ON 09/07/2015] acetaminophen (TYLENOL) tablet 650 mg 650 mg oral Q14D [START ON 08/27/2015] acyclovir (ZOVIRAX) 500 mg in NaCl 0.9 % IV 250 mg/m2 (Order-Spec ific) intravenous Q12H PRN allopurinol (ZYLOPRIM) tablet 300 mg 300 mg oral DAILY ALPRAZolam (XANAX) tablet 1 mg 1 mg oral TID PRN alteplase (CATHFLO ACTIVASE) injection 2 mg 2 mg Intracatheter PRN aluminum-magnesium hydroxide-simethicone (MAALOX; MYLANTA) 200-200-20 mg/5 mL suspensio n 30 mL 30 mL oral Q3H PRN busulfan (MYLERAN) tablet 82 mg 1 mg/kg (Treatment Plan Adjusted) oral Q6H ceFEPime IV 2 grams in NS (MB+) 2 g intravenous Q8H PRN clonazePAM (KLONOPIN) tablet 0.5 mg 0.5 mg oral BID [START ON 08/23/2015] cyclophosphamide (CYTOXAN) 4,900 mg in NaCl 0.9 % IV 4,900 mg int ravenous Q24H [START ON 08/23/2015] dexamethasone (DECADRON) tablet 12 mg 12 mg oral ONCE [START ON 08/24/2015] dexamethasone (DECADRON) tablet 8 mg 8 mg oral Q24H diphenhydrAMINE (BENADRYL) capsule 25 mg 25 mg oral Q6H PRN diphenhydrAMINE (BENADRYL) capsule 25 mg 25 mg oral Q4H PRN [START ON 08/26/2015] diphenhydrAMINE (BENADRYL) capsule 50 mg 50 mg oral ONE TIME DURI NG VISIT [START ON 08/24/2015] diphenhydrAMINE (BENADRYL) injection 25 mg 25 mg intravenous ONCE [START ON 09/07/2015] diphenhydrAMINE (BENADRYL) injection 25 mg 25 mg intravenous Q14D diphenhydrAMINE (BENADRYL) injection 25 mg 25 mg intravenous Q4H PRN [START ON 08/26/2015] diphenhydrAMINE (BENADRYL) injection 50 mg 50 mg intravenous ONE TIME DURING VISIT [START ON 08/26/2015] diphenhydrAMINE (BENADRYL) injection 50 mg 50 mg intravenous PRN rmszzrkxphKBRWH-vultbjtlh-QLKSWH (SPECIAL MOUTHWASH) suspension (compound) 10-15 mL 10 -15 mL oral Q1H PRN docusate sodium (COLACE) capsule 100 mg 100 mg oral BID [START ON 08/26/2015] DOPamine (INOTROPIN) 400 mg/250 ml (1.6 mg/mL) IV infusion (RTU) 5 mcg/kg/min (Order-Specific) intravenous PRN [START ON 08/26/2015] EPINEPHrine (ADRENALIN) injection 0.3 mg 0.3 mg subcutaneous PRN [START ON 09/07/2015] filgrastim (NEUPOGEN) injection 480 mcg 5 mcg/kg (Treatment Plan A ctual) subcutaneous QPM AT 1700 [START ON 08/26/2015] fluconazole (DIFLUCAN) tablet 400 mg 400 mg oral DAILY [START ON 08/26/2015] fluconazole IV 400 mg IN NaCl (RTU) 400 mg intravenous DAILY PRN [START ON 08/23/2015] fosaprepitant (EMEND) 150 mg in NaCl 0.9 % IV 150 mg intravenous ONCE glycerin-mineral oil (LUBRIDERM SENSITIVE LANOLIN FREE) lotion topical Q2H PRN haloperidol (HALDOL) tablet 0.5-2 mg 0.5-2 mg oral Q4H PRN haloperidol lactate (HALDOL) injection 0.5-2 mg 0.5-2 mg intravenous Q4H PRN heparin 10 unit/mL IV flush syringe 50 Units 50 Units intravenous PRN [START ON 08/26/2015] hydrocortisone (CORTEF) tablet 100 mg 100 mg oral ONE TIME DURING VISIT [START ON 08/26/2015] hydrocortisone sodium succinate (PF) (SOLU-CORTEF) injection 100 m g 100 mg intravenous PRN [START ON 08/24/2015] immune globulin (IGG) (GAMMAGARD LIQUID) IV 5% 15 g intravenous O NCE [START ON 09/07/2015] immune globulin (IGG) (GAMMAGARD LIQUID) IV 5% 15 g intravenous Q1 4D lactulose (ENULAC) liquid 10-20 g 15-30 mL oral TID PRN levETIRAcetam (KEPPRA) tablet 500 mg 500 mg oral BID [START ON 08/25/2015] levofloxacin (LEVAQUIN) tablet 500 mg 500 mg oral DAILY loperamide (IMODIUM) capsule 2 mg 2 mg oral PRN magnesium hydroxide (MILK OF MAGNESIA) suspension 30 mL 30 mL oral Q6H PRN magnesium sulfate in water IV (RTU) 4 g 4 g intravenous PRN magnesium sulfate IV 8 g 8 g intravenous PRN [START ON 08/23/2015] mesna (MESNEX) 4,900 mg in NaCl 0.9 % IV 4,900 mg intravenous Q24 H [START ON 08/29/2015] methotrexate (PF) injection 20 mg 20 mg intravenous ONCE [START ON 09/01/2015] methotrexate (PF) injection 20 mg 20 mg intravenous ONCE [START ON 09/06/2015] methotrexate (PF) injection 20 mg 20 mg intravenous ONCE [START ON 08/27/2015] methotrexate (PF) injection 30 mg 30 mg intravenous ONCE morphine injection 1-3 mg 1-3 mg intravenous Q2H PRN [START ON 08/26/2015] NaCl 0.9 % solution 100-2,000 mL intravenous PRN NaCl 0.9 % solution 150 mL/hr intravenous CONTINUOUS [START ON 08/22/2015] NaCl 0.9 % solution 150 mL/hr intravenous CONTINUOUS nystatin-zinc oxide-lidocaine (NDX) ointment (compound) topical Q1H PRN omeprazole (PRILOSEC) capsule 40 mg 40 mg oral DAILY [START ON 08/23/2015] ondansetron (ZOFRAN) injection 8 mg 8 mg intravenous Q12H ondansetron (ZOFRAN) tablet 8 mg 8 mg oral Q6H oxyCODONE (immediate release) (ROXICODONE) tablet 15-30 mg 15-30 mg oral Q4H PRN oxyCODONE CR (OXYCONTIN) tablet 10 mg 10 mg oral Q12H (Scheduled) [START ON 09/20/2015] pentamidine (PENTAM) IV 300 mg 300 mg intravenous ONE TIME DURING VISIT potassium chloride IV (central line) 40 mEq 40 mEq intravenous PRN And potassium chloride IV (central line) 60 mEq 60 mEq intravenous PRN potassium chloride SR (K-DUR) tablet 40 mEq 40 mEq oral PRN potassium phosphate IV 30 mmol 30 mmol intravenous PRN And potassium phosphate IV 40 mmol 40 mmol intravenous PRN prochlorperazine (COMPAZINE) injection 5-10 mg 5-10 mg intravenous Q4H PRN [START ON 08/23/2015] prochlorperazine (COMPAZINE) tablet 10 mg 10 mg oral Q6H prochlorperazine (COMPAZINE) tablet 5-10 mg 5-10 mg oral Q4H PRN ramelteon (ROZEREM) tablet 8 mg 8 mg oral HS PRN saliva substitute (MOUTH KOTE) spray 1 spray 1 spray oral Q1H PRN senna-docusate (SENOKOT S) 8.6-50 mg 1 tablet 1 tablet oral DAILY senna-docusate (SENOKOT S) 8.6-50 mg 1-2 tablet 1-2 tablet oral Q12H PRN sertraline (ZOLOFT) tablet 25 mg 25 mg oral DAILY sodium chloride (OCEAN) 0.65 % nasal spray 1 spray 1 spray nasal Q1H PRN sodium phosphate IV 30 mmol 30 mmol intravenous PRN sodium phosphate IV 40 mmol 40 mmol intravenous PRN [START ON 08/24/2015] tacrolimus IV intermittent (100 mL dilution) 1.2 mg intravenous Q 12H trimethoprim-sulfamethoxazole (BACTRIM DS,SEPTRA DS) 160-800 mg tablet 1 tablet 1 tabl et oral BID ursodiol (ACTIGALL) capsule 300 mg 300 mg oral BID [START ON 08/27/2015] valACYclovir (VALTREX) tablet 500 mg 500 mg oral BID Patients Hospital Problem List: Active Hospital Problems 1) Acute myeloid leukemia (AML), M4 (HCC) 2) ADHD (attention deficit hyperactivity disorder) 3) 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) 4) 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) 5) Hypoproliferative anemia (HCC) 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) Impression and plan AML receiving bucy bmt prep Immunodeficiency on bactrim hypoproliferataive anemia-transfuse irradiated rbc ADHD follow-alert social work IV hydration to prevent tumor lysis induced renal dysfunction, allopurnol to prevent gout- Lobo Rizzo MD [place] [id number] [facility] Mailcode: [id number] [place] [address] documented in this encounter Plan of Treatment [...] 2019 | Visit | Malignancy | [address] [facility] | | | | | | [address] | | | | | | [place], [place] | | | | | | [address] | | | | | | [phone] | | | | | | | | +--------+---------+ + + + + +------+--------+ + + | Name | Type | Priori | Associated Diagnoses | Order Schedule | | | | ty | | | + +------+--------+ + + | CULTURE, SPUTUM | Lab | Routin | | As Needed for 1 | | | | e | | Occurrences starting | | | | | | 08/18/2015 | + +------+--------+ + + documented as of this encounter Procedures + +--------+ + + + | Procedure Name | Priori | Date/Time | Associated Diagnosis | Comments | | | ty | | | | + +--------+ + + + | TRANSFUSE PLATELET | Routin | 05/09/2016 | | | | PHERESIS, | e | 9:37 PM | | | | LEUKOREDUCED | | PDT | | | + +--------+ + + + | TRANSFUSE PLATELET | Routin | 05/09/2016 | | | | PHERESIS, | e | 9:37 PM | | | | LEUKOREDUCED | | PDT | | | + +--------+ + + + | TRANSFUSE RED CELLS, | Routin | 05/09/2016 | | | | LEUKOREDUCED | e | 9:37 PM | | | | | | PDT | | | + +--------+ + + + | TRANSFUSE RED CELLS, | Routin | 05/09/2016 | | | | LEUKOREDUCED | e | 9:37 PM | | | | | | PDT | | | + +--------+ + + + | TRANSFUSE RED CELLS, | Routin | 05/09/2016 | | | | LEUKOREDUCED | e | 9:37 PM | | | | | | PDT | | | + +--------+ + + + | TRANSFUSE RED CELLS, | Routin | 05/09/2016 | | | | LEUKOREDUCED | e | 9:37 PM | | | | | | PDT | | | + +--------+ + + + | TRANSFUSE RED CELLS, | Routin | 05/09/2016 | | | | LEUKOREDUCED | e | 9:37 PM | | | | | | PDT | | | + +--------+ + + + | TACROLIMUS, WHOLE | Routin | 09/13/2015 | | Results for this | | BLOOD | e | 8:12 AM | | procedure are in the | | | | PST | | results section. | + +--------+ + + + | RBC MORPHOLOGY | Routin | 09/12/2015 | | Results for this | | | e | 11:26 PM | | procedure are in the | | | | PST | | results section. | + +--------+ + + + | CBC AND AUTO DIFF | Routin | 09/12/2015 | | Results for this | | | e | 11:26 PM | | procedure are in the | | | | PST | | results section. | + +--------+ + + + | MANUAL DIFFERENTIAL | Routin | 09/12/2015 | | Results for this | | | e | 11:26 PM | | procedure are in the | | | | PST | | results section. | + +--------+ + + + | CMV PCR | Routin | 09/12/2015 | | Results for this | | QUANTITATION, PLASMA | e | 11:26 PM | | procedure are in the | | | | PST | | results section. | + +--------+ + + + | INR | Routin | 09/12/2015 | | Results for this | | | e | 11:26 PM | | procedure are in the | | | | PST | | results section. | + +--------+ + + + | CBC, WITH | Routin | 09/12/2015 | | Results for this | | DIFFERENTIAL | e | 11:26 PM | | procedure are in the | | | | PST | | results section. | + +--------+ + + + | COMPLETE METABOLIC | Routin | 09/12/2015 | | Results for this | | SET | e | 11:26 PM | | procedure are in the | | (NA,K,CL,CO2,BUN,CRE | | PST | | results section. | | AT,GLUC,CA,AST,ALT,B | | | | | | YUN TOTAL,ALK | | | | | | PHOS,ALB,PROT TOTAL) | | | | | + +--------+ + + + | PHOSPHORUS, PLASMA | Routin | 09/12/2015 | | Results for this | | | e | 11:26 PM | | procedure are in the | | | | PST | | results section. | + +--------+ + + + | ASPERGILLUS | Routin | 09/12/2015 | | Results for this | | GALACTOMANNAN | e | 11:26 PM | | procedure are in the | | ANTIGEN, SERUM | | PST | | results section. | + +--------+ + + + | MAGNESIUM, PLASMA | Routin | 09/12/2015 | | Results for this | | | e | 11:26 PM | | procedure are in the | | | | PST | | results section. | + +--------+ + + + | LDH TOTAL, PLASMA | Routin | 09/12/2015 | | Results for this | | | e | 11:26 PM | | procedure are in the | | | | PST | | results section. | + +--------+ + + + | COAGULOPATHY PANEL | Routin | 09/12/2015 | | Results for this | | (INR,APTT,FIBRINOGEN | e | 10:26 AM | | procedure are in the | | ) | | PST | | results section. | + +--------+ + + + | RBC MORPHOLOGY | Routin | 09/11/2015 | | Results for this | | | e | 11:13 PM | | procedure are in the | | | | PST | | results section. | + +--------+ + + + | CBC AND AUTO DIFF | Routin | 09/11/2015 | | Results for this | | | e | 11:13 PM | | procedure are in the | | | | PST | | results section. | + +--------+ + + + | MANUAL DIFFERENTIAL | Routin | 09/11/2015 | | Results for this | | | e | 11:13 PM | | procedure are in the | | | | PST | | results section. | + +--------+ + + + | CBC, WITH | Routin | 09/11/2015 | | Results for this | | DIFFERENTIAL | e | 11:13 PM | | procedure are in the | | | | PST | | results section. | + +--------+ + + + | COMPLETE METABOLIC | Routin | 09/11/2015 | | Results for this | | SET | e | 11:13 PM | | procedure are in the | | (NA,K,CL,CO2,BUN,CRE | | PST | | results section. | | AT,GLUC,CA,AST,ALT,B | | | | | | YUN TOTAL,ALK | | | | | | PHOS,ALB,PROT TOTAL) | | | | | + +--------+ + + + | PHOSPHORUS, PLASMA | Routin | 09/11/2015 | | Results for this | | | e | 11:13 PM | | procedure are in the | | | | PST | | results section. | + +--------+ + + + | MAGNESIUM, PLASMA | Routin | 09/11/2015 | | Results for this | | | e | 11:13 PM | | procedure are in the | | | | PST | | results section. | + +--------+ + + + | TRANSFUSE PLATELET | Routin | 09/11/2015 | | | | PHERESIS, | e | 8:02 PM | | | | LEUKOREDUCED | | PST | | | + +--------+ + + + | PRODUCT - PLATELET | Routin | 09/11/2015 | | Results for this | | PHERESIS | e | 6:07 PM | | procedure are in the | | LEUKOREDUCED | | PST | | results section. | + +--------+ + + + | RBC MORPHOLOGY | Routin | 09/10/2015 | | Results for this | | | e | 11:00 PM | | procedure are in the | | | | PST | | results section. | + +--------+ + + + | CBC AND AUTO DIFF | Routin | 09/10/2015 | | Results for this | | | e | 11:00 PM | | procedure are in the | | | | PST | | results section. | + +--------+ + + + | MANUAL DIFFERENTIAL | Routin | 09/10/2015 | | Results for this | | | e | 11:00 PM | | procedure are in the | | | | PST | | results section. | + +--------+ + + + | CBC, WITH | Routin | 09/10/2015 | | Results for this | | DIFFERENTIAL | e | 11:00 PM | | procedure are in the | | | | PST | | results section. | + +--------+ + + + | COMPLETE METABOLIC | Routin | 09/10/2015 | | Results for this | | SET | e | 11:00 PM | | procedure are in the | | (NA,K,CL,CO2,BUN,CRE | | PST | | results section. | | AT,GLUC,CA,AST,ALT,B | | | | | | YUN TOTAL,ALK | | | | | | PHOS,ALB,PROT TOTAL) | | | | | + +--------+ + + + | PHOSPHORUS, PLASMA | Routin | 09/10/2015 | | Results for this | | | e | 11:00 PM | | procedure are in the | | | | PST | | results section. | + +--------+ + + + | MAGNESIUM, PLASMA | Routin | 09/10/2015 | | Results for this | | | e | 11:00 PM | | procedure are in the | | | | PST | | results section. | + +--------+ + + + | VRE (DIAZ) BY PCR | Routin | 09/10/2015 | | Results for this | | | e | 5:30 PM | | procedure are in the | | | | PST | | results section. | + +--------+ + + + | PRODUCT - PLATELET | Routin | 09/10/2015 | | Results for this | | PHERESIS | e | 2:28 AM | | procedure are in the | | LEUKOREDUCED | | PST | | results section. | + +--------+ + + + | RBC MORPHOLOGY | Routin | 09/10/2015 | | Results for this | | | e | 12:05 AM | | procedure are in the | | | | PST | | results section. | + +--------+ + + + | CBC AND AUTO DIFF | Routin | 09/10/2015 | | Results for this | | | e | 12:05 AM | | procedure are in the | | | | PST | | results section. | + +--------+ + + + | MANUAL DIFFERENTIAL | Routin | 09/10/2015 | | Results for this | | | e | 12:05 AM | | procedure are in the | | | | PST | | results section. | + +--------+ + + + | CBC, WITH | Routin | 09/10/2015 | | Results for this | | DIFFERENTIAL | e | 12:05 AM | | procedure are in the | | | | PST | | results section. | + +--------+ + + + | COMPLETE METABOLIC | Routin | 09/10/2015 | | Results for this | | SET | e | 12:05 AM | | procedure are in the | | (NA,K,CL,CO2,BUN,CRE | | PST | | results section. | | AT,GLUC,CA,AST,ALT,B | | | | | | YUN TOTAL,ALK | | | | | | PHOS,ALB,PROT TOTAL) | | | | | + +--------+ + + + | TACROLIMUS, WHOLE | Routin | 09/10/2015 | | Results for this | | BLOOD | e | 12:05 AM | | procedure are in the | | | | PST | | results section. | + +--------+ + + + | PHOSPHORUS, PLASMA | Routin | 09/10/2015 | | Results for this | | | e | 12:05 AM | | procedure are in the | | | | PST | | results section. | + +--------+ + + + | MAGNESIUM, PLASMA | Routin | 09/10/2015 | | Results for this | | | e | 12:05 AM | | procedure are in the | | | | PST | | results section. | + +--------+ + + + | PRODUCT - PLATELET | Routin | 09/09/2015 | | Results for this | | PHERESIS | e | 3:14 PM | | procedure are in the | | LEUKOREDUCED | | PST | | results section. | + +--------+ + + + | PLATELET COUNT, | Routin | 09/09/2015 | | Results for this | | WHOLE BLOOD | e | 2:15 PM | | procedure are in the | | | | PST | | results section. | + +--------+ + + + | TRANSFUSE PLATELET | Routin | 09/09/2015 | | | | PHERESIS, | e | 1:42 PM | | | | LEUKOREDUCED | | PST | | | + +--------+ + + + | PRODUCT - PLATELET | Routin | 09/09/2015 | | Results for this | | PHERESIS | e | 1:45 AM | | procedure are in the | | LEUKOREDUCED | | PST | | results section. | + +--------+ + + + | RBC MORPHOLOGY | Routin | 09/08/2015 | | Results for this | | | e | 11:46 PM | | procedure are in the | | | | PST | | results section. | + +--------+ + + + | CBC AND AUTO DIFF | Routin | 09/08/2015 | | Results for this | | | e | 11:46 PM | | procedure are in the | | | | PST | | results section. | + +--------+ + + + | MANUAL DIFFERENTIAL | Routin | 09/08/2015 | | Results for this | | | e | 11:46 PM | | procedure are in the | | | | PST | | results section. | + +--------+ + + + | CBC, WITH | Routin | 09/08/2015 | | Results for this | | DIFFERENTIAL | e | 11:46 PM | | procedure are in the | | | | PST | | results section. | + +--------+ + + + | COMPLETE METABOLIC | Routin | 09/08/2015 | | Results for this | | SET | e | 11:46 PM | | procedure are in the | | (NA,K,CL,CO2,BUN,CRE | | PST | | results section. | | AT,GLUC,CA,AST,ALT,B | | | | | | YUN TOTAL,ALK | | | | | | PHOS,ALB,PROT TOTAL) | | | | | + +--------+ + + + | PHOSPHORUS, PLASMA | Routin | 09/08/2015 | | Results for this | | | e | 11:46 PM | | procedure are in the | | | | PST | | results section. | + +--------+ + + + | MAGNESIUM, PLASMA | Routin | 09/08/2015 | | Results for this | | | e | 11:46 PM | | procedure are in the | | | | PST | | results section. | + +--------+ + + + | LDH TOTAL, PLASMA | Routin | 09/08/2015 | | Results for this | | | e | 11:46 PM | | procedure are in the | | | | PST | | results section. | + +--------+ + + + | OCCULT BLOOD, FECES, | Routin | 09/08/2015 | | Results for this | | SCREEN | e | 6:31 PM | | procedure are in the | | | | PST | | results section. | + +--------+ + + + | TRANSFUSE PLATELET | Routin | 09/08/2015 | | | | PHERESIS, | e | 6:06 PM | | | | LEUKOREDUCED | | PST | | | + +--------+ + + + | PRODUCT - PLATELET | Routin | 09/08/2015 | | Results for this | | PHERESIS | e | 2:48 PM | | procedure are in the | | LEUKOREDUCED | | PST | | results section. | + +--------+ + + + | PRODUCT - RED CELLS | Routin | 09/08/2015 | | Results for this | | LEUKOREDUCED | e | 2:47 PM | | procedure are in the | | | | PST | | results section. | + +--------+ + + + | TRANSFUSE PLATELET | Routin | 09/08/2015 | | | | PHERESIS, | e | 11:55 AM | | | | LEUKOREDUCED | | PST | | | + +--------+ + + + | TRANSFUSION REACTION | Routin | 09/08/2015 | | Results for this | | | e | 11:55 AM | | procedure are in the | | | | PST | | results section. | + +--------+ + + + | PRODUCT - PLATELET | Routin | 09/08/2015 | | Results for this | | PHERESIS | e | 4:09 AM | | procedure are in the | | LEUKOREDUCED | | PST | | results section. | + +--------+ + + + | CBC AND AUTO DIFF | Routin | 09/08/2015 | | Results for this | | | e | 2:48 AM | | procedure are in the | | | | PST | | results section. | + +--------+ + + + | CBC, WITH | Routin | 09/08/2015 | | Results for this | | DIFFERENTIAL | e | 2:48 AM | | procedure are in the | | | | PST | | results section. | + +--------+ + + + | COMPLETE METABOLIC | Routin | 09/08/2015 | | Results for this | | SET | e | 2:48 AM | | procedure are in the | | (NA,K,CL,CO2,BUN,CRE | | PST | | results section. | | AT,GLUC,CA,AST,ALT,B | | | | | | YUN TOTAL,ALK | | | | | | PHOS,ALB,PROT TOTAL) | | | | | + +--------+ + + + | TACROLIMUS, WHOLE | Routin | 09/08/2015 | | Results for this | | BLOOD | e | 2:48 AM | | procedure are in the | | | | PST | | results section. | + +--------+ + + + | PHOSPHORUS, PLASMA | Routin | 09/08/2015 | | Results for this | | | e | 2:48 AM | | procedure are in the | | | | PST | | results section. | + +--------+ + + + | MAGNESIUM, PLASMA | Routin | 09/08/2015 | | Results for this | | | e | 2:48 AM | | procedure are in the | | | | PST | | results section. | + +--------+ + + + | CBC AND AUTO DIFF | Routin | 09/07/2015 | | Results for this | | | e | 8:49 PM | | procedure are in the | | | | PST | | results section. | + +--------+ + + + | CBC, WITH | Routin | 09/07/2015 | | Results for this | | DIFFERENTIAL | e | 8:49 PM | | procedure are in the | | | | PST | | results section. | + +--------+ + + + | COAGULOPATHY PANEL | Urgent | 09/07/2015 | | Results for this | | (INR,APTT,FIBRINOGEN | | 8:49 PM | | procedure are in the | | ) | | PST | | results section. | + +--------+ + + + | ANTIBODY SCREEN | Routin | 09/07/2015 | | Results for this | | | e | 8:49 PM | | procedure are in the | | | | PST | | results section. | + +--------+ + + + | TYPE AND SCREEN | Routin | 09/07/2015 | | Results for this | | | e | 8:49 PM | | procedure are in the | | | | PST | | results section. | + +--------+ + + + | ABO & RH TYPE | Routin | 09/07/2015 | | Results for this | | | e | 8:49 PM | | procedure are in the | | | | PST | | results section. | + +--------+ + + + | PRODUCT - PLATELET | Routin | 09/07/2015 | | Results for this | | PHERESIS | e | 8:45 PM | | procedure are in the | | LEUKOREDUCED | | PST | | results section. | + +--------+ + + + | PRODUCT - RED CELLS | Routin | 09/07/2015 | | Results for this | | LEUKOREDUCED | e | 8:45 PM | | procedure are in the | | | | PST | | results section. | + +--------+ + + + | CT CHEST WO CONTRAST | Routin | 09/07/2015 | | Results for this | | | e | 2:53 PM | | procedure are in the | | | | PST | | results section. | + +--------+ + + + | OSMOLALITY, URINE | Routin | 09/07/2015 | | Results for this | | SPOT | e | 1:47 PM | | procedure are in the | | | | PST | | results section. | + +--------+ + + + | BASIC METABOLIC SET | Routin | 09/07/2015 | | Results for this | | (NA, K, CL, TCO2, | e | 12:10 PM | | procedure are in the | | BUN, CR, GLU, CA) | | PST | | results section. | + +--------+ + + + | TACROLIMUS, WHOLE | Routin | 09/07/2015 | | Results for this | | BLOOD | e | 8:31 AM | | procedure are in the | | | | PST | | results section. | + +--------+ + + + | TRANSFUSE PLATELET | Routin | 09/07/2015 | | | | PHERESIS, | e | 6:56 AM | | | | LEUKOREDUCED | | PST | | | + +--------+ + + + | CULTURE, BLOOD BACTI | Routin | 09/07/2015 | | Results for this | | & YEAST [facility] | e | 6:22 AM | | procedure are in the | | | | PST | | results section. | + +--------+ + + + | CULTURE, BLOOD BACTI | Routin | 09/07/2015 | | Results for this | | & YEAST | e | 6:22 AM | | procedure are in the | | | | PST | | results section. | + +--------+ + + + | TRANSFUSION REACTION | Routin | 09/07/2015 | | Results for this | | | e | 5:55 AM | | procedure are in the | | | | PST | | results section. | + +--------+ + + + | PRODUCT - PLATELET | Routin | 09/07/2015 | | Results for this | | PHERESIS | e | 2:57 AM | | procedure are in the | | LEUKOREDUCED | | PST | | results section. | + +--------+ + + + | CBC AND AUTO DIFF | Routin | 09/06/2015 | | Results for this | | | e | 11:15 PM | | procedure are in the | | | | PST | | results section. | + +--------+ + + + | CBC, WITH | Routin | 09/06/2015 | | Results for this | | DIFFERENTIAL | e | 11:15 PM | | procedure are in the | | | | PST | | results section. | + +--------+ + + + | COMPLETE METABOLIC | Routin | 09/06/2015 | | Results for this | | SET | e | 11:15 PM | | procedure are in the | | (NA,K,CL,CO2,BUN,CRE | | PST | | results section. | | AT,GLUC,CA,AST,ALT,B | | | | | | YUN TOTAL,ALK | | | | | | PHOS,ALB,PROT TOTAL) | | | | | + +--------+ + + + | PHOSPHORUS, PLASMA | Routin | 09/06/2015 | | Results for this | | | e | 11:15 PM | | procedure are in the | | | | PST | | results section. | + +--------+ + + + | MAGNESIUM, PLASMA | Routin | 09/06/2015 | | Results for this | | | e | 11:15 PM | | procedure are in the | | | | PST | | results section. | + +--------+ + + + | VANCOMYCIN, TROUGH | Routin | 09/06/2015 | | Results for this | | | e | 9:33 PM | | procedure are in the | | | | PST | | results section. | + +--------+ + + + | RESPIRATORY PATHOGEN | Routin | 09/06/2015 | | Results for this | | PANEL PCR | e | 10:54 AM | | procedure are in the | | | | PST | | results section. | + +--------+ + + + | C. DIFFICILE TOXIN, | Routin | 09/06/2015 | | Results for this | | W/REFLEX | e | 10:29 AM | | procedure are in the | | CONFIRMATION IF | | PST | | results section. | | INDETERMINATE | | | | | | RESULTS | | | | | + +--------+ + + + | TACROLIMUS, WHOLE | Routin | 09/06/2015 | | Results for this | | BLOOD | e | 8:10 AM | | procedure are in the | | | | PST | | results section. | + +--------+ + + + | CAPILLARY BLOOD | Routin | 09/06/2015 | Acute myeloid | Results for this | | GLUCOSE (NO CHG), | e | 6:15 AM | leukemia (AML), M4 | procedure are in the | | POC | | PST | ([facility]) | results section. | + +--------+ + + + | CAPILLARY BLOOD | Routin | 09/06/2015 | Acute myeloid | Results for this | | GLUCOSE (NO CHG), | e | 12:13 AM | leukemia (AML), M4 | procedure are in the | | POC | | PST | ([facility]) | results section. | + +--------+ + + + | CBC AND AUTO DIFF | Routin | 09/05/2015 | | Results for this | | | e | 11:57 PM | | procedure are in the | | | | PST | | results section. | + +--------+ + + + | CMV PCR | Routin | 09/05/2015 | | Results for this | | QUANTITATION, PLASMA | e | 11:57 PM | | procedure are in the | | | | PST | | results section. | + +--------+ + + + | INR | Routin | 09/05/2015 | | Results for this | | | e | 11:57 PM | | procedure are in the | | | | PST | | results section. | + +--------+ + + + | CBC, WITH | Routin | 09/05/2015 | | Results for this | | DIFFERENTIAL | e | 11:57 PM | | procedure are in the | | | | PST | | results section. | + +--------+ + + + | COMPLETE METABOLIC | Routin | 09/05/2015 | | Results for this | | SET | e | 11:57 PM | | procedure are in the | | (NA,K,CL,CO2,BUN,CRE | | PST | | results section. | | AT,GLUC,CA,AST,ALT,B | | | | | | YUN TOTAL,ALK | | | | | | PHOS,ALB,PROT TOTAL) | | | | | + +--------+ + + + | PHOSPHORUS, PLASMA | Routin | 09/05/2015 | | Results for this | | | e | 11:57 PM | | procedure are in the | | | | PST | | results section. | + +--------+ + + + | ASPERGILLUS | Routin | 09/05/2015 | | Results for this | | GALACTOMANNAN | e | 11:57 PM | | procedure are in the | | ANTIGEN, SERUM | | PST | | results section. | + +--------+ + + + | MAGNESIUM, PLASMA | Routin | 09/05/2015 | | Results for this | | | e | 11:57 PM | | procedure are in the | | | | PST | | results section. | + +--------+ + + + | LDH TOTAL, PLASMA | Routin | 09/05/2015 | | Results for this | | | e | 11:57 PM | | procedure are in the | | | | PST | | results section. | + +--------+ + + + | CAPILLARY BLOOD | Routin | 09/05/2015 | Acute myeloid | Results for this | | GLUCOSE (NO CHG), | e | 5:54 PM | leukemia (AML), M4 | procedure are in the | | POC | | PST | ([facility]) | results section. | + +--------+ + + + | CAPILLARY BLOOD | Routin | 09/05/2015 | Acute myeloid | Results for this | | GLUCOSE (NO CHG), | e | 11:55 AM | leukemia (AML), M4 | procedure are in the | | POC | | PST | ([facility]) | results section. | + +--------+ + + + | TRANSFUSE RED CELLS, | Routin | 09/05/2015 | | | | LEUKOREDUCED | e | 9:14 AM | | | | | | PST | | | + +--------+ + + + | CAPILLARY BLOOD | Routin | 09/05/2015 | Acute myeloid | Results for this | | GLUCOSE (NO CHG), | e | 6:39 AM | leukemia (AML), M4 | procedure are in the | | POC | | PST | ([facility]) | results section. | + +--------+ + + + | TRANSFUSE PLATELET | Routin | 09/05/2015 | | | | PHERESIS, | e | 6:29 AM | | | | LEUKOREDUCED | | PST | | | + +--------+ + + + | CAPILLARY BLOOD | Routin | 09/05/2015 | Acute myeloid | Results for this | | GLUCOSE (NO CHG), | e | 12:08 AM | leukemia (AML), M4 | procedure are in the | | POC | | PST | ([facility]) | results section. | + +--------+ + + + | PRODUCT - PLATELET | Routin | 09/04/2015 | | Results for this | | PHERESIS | e | 11:55 PM | | procedure are in the | | LEUKOREDUCED | | PST | | results section. | + +--------+ + + + | PRODUCT - RED CELLS | Routin | 09/04/2015 | | Results for this | | LEUKOREDUCED | e | 11:55 PM | | procedure are in the | | | | PST | | results section. | + +--------+ + + + | IGG, SERUM | Routin | 09/04/2015 | | Results for this | | | e | 11:55 PM | | procedure are in the | | | | PST | | results section. | + +--------+ + + + | CBC AND AUTO DIFF | Routin | 09/04/2015 | | Results for this | | | e | 11:01 PM | | procedure are in the | | | | PST | | results section. | + +--------+ + + + | CBC, WITH | Routin | 09/04/2015 | | Results for this | | DIFFERENTIAL | e | 11:01 PM | | procedure are in the | | | | PST | | results section. | + +--------+ + + + | COMPLETE METABOLIC | Routin | 09/04/2015 | | Results for this | | SET | e | 11:01 PM | | procedure are in the | | (NA,K,CL,CO2,BUN,CRE | | PST | | results section. | | AT,GLUC,CA,AST,ALT,B | | | | | | YUN TOTAL,ALK | | | | | | PHOS,ALB,PROT TOTAL) | | | | | + +--------+ + + + | PHOSPHORUS, PLASMA | Routin | 09/04/2015 | | Results for this | | | e | 11:01 PM | | procedure are in the | | | | PST | | results section. | + +--------+ + + + | MAGNESIUM, PLASMA | Routin | 09/04/2015 | | Results for this | | | e | 11:01 PM | | procedure are in the | | | | PST | | results section. 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 | + +--------+ + + + | VANCOMYCIN, TROUGH | Routin | 09/04/2015 | | Results for this | | | e | 4:35 PM | | procedure are in the | | | | PST | | results section. | + +--------+ + + + | CAPILLARY BLOOD | Routin | 09/04/2015 | Acute myeloid | Results for this | | GLUCOSE (NO CHG), | e | 12:27 PM | leukemia (AML), M4 | procedure are in the | | POC | | PST | ([facility]) | results section. 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 | + +--------+ + + + | CBC AND AUTO DIFF | Routin | 09/04/2015 | | Results for this | | | e | 12:14 AM | | procedure are in the | | | | PST | | results section. | + +--------+ + + + | CBC, WITH | Routin | 09/04/2015 | | Results for this | | DIFFERENTIAL | e | 12:14 AM | | procedure are in the | | | | PST | | results section. | + +--------+ + + + | COMPLETE METABOLIC | Routin | 09/04/2015 | | Results for this | | SET | e | 12:14 AM | | procedure are in the | | (NA,K,CL,CO2,BUN,CRE | | PST | | results section. | | AT,GLUC,CA,AST,ALT,B | | | | | | YUN TOTAL,ALK | | | | | | PHOS,ALB,PROT TOTAL) | | | | | + +--------+ + + + | PHOSPHORUS, PLASMA | Routin | 09/04/2015 | | Results for this | | | e | 12:14 AM | | procedure are in the | | | | PST | | results section. | + +--------+ + + + | MAGNESIUM, PLASMA | Routin | 09/04/2015 | | Results for this | | | e | 12:14 AM | | procedure are in the | | | | PST | | results section. | + +--------+ + + + | VRE (DIAZ) BY PCR | Routin | 09/03/2015 | | Results for this | | | e | 6:37 PM | | procedure are in the | | | | PST | | results section. | + +--------+ + + + | CULTURE, BLOOD BACTI | Routin | 09/03/2015 | | Results for this | | & YEAST [facility] | e | 11:17 AM | | procedure are in the | | | | PST | | results section. | + +--------+ + + + | CULTURE, BLOOD BACTI | Routin | 09/03/2015 | | Results for this | | & YEAST | e | 11:17 AM | | procedure are in the | | | | PST | | results section. | + +--------+ + + + | PREALBUMIN, SERUM | Routin | 09/03/2015 | | Results for this | | | e | 10:49 AM | | procedure are in the | | | | PST | | results section. | + +--------+ + + + | C-REACTIVE PROTEIN | Routin | 09/03/2015 | | Results for this | | | e | 10:49 AM | | procedure are in the | | | | PST | | results section. | + +--------+ + + + | PHOSPHORUS, PLASMA | Routin | 09/03/2015 | | Results for this | | | e | 10:49 AM | | procedure are in the | | | | PST | | results section. | + +--------+ + + + | CALCIUM, IONIZED, | Routin | 09/03/2015 | | Results for this | | WHOLE BLOOD | e | 10:49 AM | | procedure are in the | | | | PST | | results section. | + +--------+ + + + | MAGNESIUM, PLASMA | Routin | 09/03/2015 | | Results for this | | | e | 10:49 AM | | procedure are in the | | | | PST | | results section. | + +--------+ + + + | TRIGLYCERIDES, | Routin | 09/03/2015 | | Results for this | | PLASMA | e | 10:49 AM | | procedure are in the | | | | PST | | results section. | + +--------+ + + + | X-RAY CHEST 2 VIEW | Urgent | 09/03/2015 | | Results for this | | | | 10:09 AM | | procedure are in the | | | | PST | | results section. | + +--------+ + + + | TRANSFUSE PLATELET | Routin | 09/03/2015 | | | | PHERESIS, | e | 8:31 AM | | | | LEUKOREDUCED | | PST | | | + +--------+ + + + | VANCOMYCIN, TROUGH | Routin | 09/03/2015 | | Results for this | | | e | 8:10 AM | | procedure are in the | | | | PST | | results section. | + +--------+ + + + | PRODUCT - PLATELET | Routin | 09/03/2015 | | Results for this | | PHERESIS | e | 1:12 AM | | procedure are in the | | LEUKOREDUCED | | PST | | results section. | + +--------+ + + + | CBC AND AUTO DIFF | Routin | 09/02/2015 | | Results for this | | | e | 11:00 PM | | procedure are in the | | | | PST | | results section. | + +--------+ + + + | CBC, WITH | Routin | 09/02/2015 | | Results for this | | DIFFERENTIAL | e | 11:00 PM | | procedure are in the | | | | PST | | results section. | + +--------+ + + + | COMPLETE METABOLIC | Routin | 09/02/2015 | | Results for this | | SET | e | 11:00 PM | | procedure are in the | | (NA,K,CL,CO2,BUN,CRE | | PST | | results section. | | AT,GLUC,CA,AST,ALT,B | | | | | | YUN TOTAL,ALK | | | | | | PHOS,ALB,PROT TOTAL) | | | | | + +--------+ + + + | PHOSPHORUS, PLASMA | Routin | 09/02/2015 | | Results for this | | | e | 11:00 PM | | procedure are in the | | | | PST | | results section. | + +--------+ + + + | MAGNESIUM, PLASMA | Routin | 09/02/2015 | | Results for this | | | e | 11:00 PM | | procedure are in the | | | | PST | | results section. | + +--------+ + + + | TRANSFUSE RED CELLS, | Routin | 09/02/2015 | | | | LEUKOREDUCED | e | 2:27 PM | | | | | | PST | | | + +--------+ + + + | ADMINISTER | Routin | 09/02/2015 | | | | CHEMOTHERAPY PER | e | 9:25 AM | | | | TREATMENT PARAMETERS | | PST | | | + +--------+ + + + | TRANSFUSE PLATELET | Routin | 09/02/2015 | | | | PHERESIS, | e | 8:23 AM | | | | LEUKOREDUCED | | PST | | | + +--------+ + + + | TACROLIMUS, WHOLE | Routin | 09/02/2015 | | Results for this | | BLOOD | e | 8:06 AM | | procedure are in the | | | | PST | | results section. | + +--------+ + + + | CULTURE, BLOOD BACTI | Routin | 09/02/2015 | | Results for this | | & YEAST [facility] | e | 4:00 AM | | procedure are in the | | | | PST | | results section. | + +--------+ + + + | CULTURE, BLOOD BACTI | Routin | 09/02/2015 | | Results for this | | & YEAST | e | 4:00 AM | | procedure are in the | | | | PST | | results section. | + +--------+ + + + | ANTIBODY SCREEN | Routin | 09/02/2015 | | Results for this | | | e | 12:20 AM | | procedure are in the | | | | PST | | results section. | + +--------+ + + + | TYPE AND SCREEN | Routin | 09/02/2015 | | Results for this | | | e | 12:20 AM | | procedure are in the | | | | PST | | results section. | + +--------+ + + + | ABO & RH TYPE | Routin | 09/02/2015 | | Results for this | | | e | 12:20 AM | | procedure are in the | | | | PST | | results section. | + +--------+ + + + | PRODUCT - PLATELET | Routin | 09/02/2015 | | Results for this | | PHERESIS | e | 12:10 AM | | procedure are in the | | LEUKOREDUCED | | PST | | results section. | + +--------+ + + + | PRODUCT - RED CELLS | Routin | 09/02/2015 | | Results for this | | LEUKOREDUCED | e | 12:10 AM | | procedure are in the | | | | PST | | results section. | + +--------+ + + + | CBC AND AUTO DIFF | Routin | 09/01/2015 | | Results for this | | | e | 11:00 PM | | procedure are in the | | | | PST | | results section. | + +--------+ + + + | CBC, WITH | Routin | 09/01/2015 | | Results for this | | DIFFERENTIAL | e | 11:00 PM | | procedure are in the | | | | PST | | results section. | + +--------+ + + + | COMPLETE METABOLIC | Routin | 09/01/2015 | | Results for this | | SET | e | 11:00 PM | | procedure are in the | | (NA,K,CL,CO2,BUN,CRE | | PST | | results section. | | AT,GLUC,CA,AST,ALT,B | | | | | | YUN TOTAL,ALK | | | | | | PHOS,ALB,PROT TOTAL) | | | | | + +--------+ + + + | PHOSPHORUS, PLASMA | Routin | 09/01/2015 | | Results for this | | | e | 11:00 PM | | procedure are in the | | | | PST | | results section. | + +--------+ + + + | MAGNESIUM, PLASMA | Routin | 09/01/2015 | | Results for this | | | e | 11:00 PM | | procedure are in the | | | | PST | | results section. | + +--------+ + + + | LDH TOTAL, PLASMA | Routin | 09/01/2015 | | Results for this | | | e | 11:00 PM | | procedure are in the | | | | PST | | results section. | + +--------+ + + + | TRANSFUSE RED CELLS, | Routin | 09/01/2015 | | | | LEUKOREDUCED | e | 9:54 AM | | | | | | PST | | | + +--------+ + + + | TRANSFUSE PLATELET | Routin | 09/01/2015 | | | | PHERESIS, | e | 6:05 AM | | | | LEUKOREDUCED | | PST | | | + +--------+ + + + | PRODUCT - PLATELET | Routin | 09/01/2015 | | Results for this | | PHERESIS | e | 12:31 AM | | procedure are in the | | LEUKOREDUCED | | PST | | results section. | + +--------+ + + + | PRODUCT - RED CELLS | Routin | 09/01/2015 | | Results for this | | LEUKOREDUCED | e | 12:31 AM | | procedure are in the | | | | PST | | results section. | + +--------+ + + + | CBC AND AUTO DIFF | Routin | 08/31/2015 | | Results for this | | | e | 11:30 PM | | procedure are in the | | | | PST | | results section. | + +--------+ + + + | CBC, WITH | Routin | 08/31/2015 | | Results for this | | DIFFERENTIAL | e | 11:30 PM | | procedure are in the | | | | PST | | results section. | + +--------+ + + + | COMPLETE METABOLIC | Routin | 08/31/2015 | | Results for this | | SET | e | 11:30 PM | | procedure are in the | | (NA,K,CL,CO2,BUN,CRE | | PST | | results section. | | AT,GLUC,CA,AST,ALT,B | | | | | | YUN TOTAL,ALK | | | | | | PHOS,ALB,PROT TOTAL) | | | | | + +--------+ + + + | PHOSPHORUS, PLASMA | Routin | 08/31/2015 | | Results for this | | | e | 11:30 PM | | procedure are in the | | | | PST | | results section. | + +--------+ + + + | MAGNESIUM, PLASMA | Routin | 08/31/2015 | | Results for this | | | e | 11:30 PM | | procedure are in the | | | | PST | | results section. | + +--------+ + + + | CAna MCINTYRE TOXIN, | Routin | 08/31/2015 | | Results for this | | W/REFLEX | e | 3:19 PM | | procedure are in the | | CONFIRMATION IF | | PST | | results section. | | INDETERMINATE | | | | | | RESULTS | | | | | + +--------+ + + + | CBC AND AUTO DIFF | Routin | 08/30/2015 | | Results for this | | | e | 11:08 PM | | procedure are in the | | | | PST | | results section. | + +--------+ + + + | CBC, WITH | Routin | 08/30/2015 | | Results for this | | DIFFERENTIAL | e | 11:08 PM | | procedure are in the | | | | PST | | results section. | + +--------+ + + + | COMPLETE METABOLIC | Routin | 08/30/2015 | | Results for this | | SET | e | 11:08 PM | | procedure are in the | | (NA,K,CL,CO2,BUN,CRE | | PST | | results section. | | AT,GLUC,CA,AST,ALT,B | | | | | | YUN TOTAL,ALK | | | | | | PHOS,ALB,PROT TOTAL) | | | | | + +--------+ + + + | PHOSPHORUS, PLASMA | Routin | 08/30/2015 | | Results for this | | | e | 11:08 PM | | procedure are in the | | | | PST | | results section. | + +--------+ + + + | MAGNESIUM, PLASMA | Routin | 08/30/2015 | | Results for this | | | e | 11:08 PM | | procedure are in the | | | | PST | | results section. | + +--------+ + + + | CULTURE, URINE [facility] | Routin | 08/30/2015 | | Results for this | | | e | 8:27 PM | | procedure are in the | | | | PST | | results section. | + +--------+ + + + | UA, DIPSTICK ONLY | Routin | 08/30/2015 | | Results for this | | | e | 8:27 PM | | procedure are in the | | | | PST | | results section. | + +--------+ + + + | URINE, MICROSCOPIC | Routin | 08/30/2015 | | Results for this | | EXAM | e | 8:27 PM | | procedure are in the | | | | PST | | results section. | + +--------+ + + + | CULTURE, URINE BACTI | Routin | 08/30/2015 | | Results for this | | | e | 8:27 PM | | procedure are in the | | | | PST | | results section. | + +--------+ + + + | X-RAY CHEST 2 VIEW | Urgent | 08/30/2015 | | Results for this | | | | 6:42 PM | | procedure are in the | | | | PST | | results section. | + +--------+ + + + | CULTURE, BLOOD BACTI | Routin | 08/30/2015 | | Results for this | | & YEAST [facility] | e | 5:03 PM | | procedure are in the | | | | PST | | results section. | + +--------+ + + + | CULTURE, BLOOD BACTI | Routin | 08/30/2015 | | Results for this | | & YEAST | e | 5:03 PM | | procedure are in the | | | | PST | | results section. | + +--------+ + + + | CULTURE, BLOOD BACTI | Routin | 08/30/2015 | | Results for this | | & YEAST [facility] | e | 4:21 PM | | procedure are in the | | | | PST | | results section. | + +--------+ + + + | CULTURE, BLOOD BACTI | Routin | 08/30/2015 | | Results for this | | & YEAST [facility] | e | 4:21 PM | | procedure are in the | | | | PST | | results section. | + +--------+ + + + | CULTURE, BLOOD BACTI | Routin | 08/30/2015 | | Results for this | | & YEAST [facility] | e | 4:21 PM | | procedure are in the | | | | PST | | results section. | + +--------+ + + + | CULTURE, BLOOD BACTI | Routin | 08/30/2015 | | Results for this | | & YEAST | e | 4:21 PM | | procedure are in the | | | | PST | | results section. | + +--------+ + + + | CULTURE, BLOOD BACTI | Routin | 08/30/2015 | | Results for this | | & YEAST | e | 4:21 PM | | procedure are in the | | | | PST | | results section. | + +--------+ + + + | CULTURE, BLOOD BACTI | Routin | 08/30/2015 | | Results for this | | & YEAST | e | 4:21 PM | | procedure are in the | | | | PST | | results section. | + +--------+ + + + | ADMINISTER | Routin | 08/30/2015 | | | | CHEMOTHERAPY PER | e | 8:34 AM | | | | TREATMENT PARAMETERS | | PST | | | + +--------+ + + + | TACROLIMUS, WHOLE | Routin | 08/30/2015 | | Results for this | | BLOOD | e | 8:16 AM | | procedure are in the | | | | PST | | results section. | + +--------+ + + + | TRANSFUSE PLATELET | Routin | 08/30/2015 | | | | PHERESIS, | e | 6:45 AM | | | | LEUKOREDUCED | | PST | | | + +--------+ + + + | PRODUCT - PLATELET | Routin | 08/30/2015 | | Results for this | | PHERESIS | e | 1:02 AM | | procedure are in the | | LEUKOREDUCED | | PST | | results section. | + +--------+ + + + | CBC AND AUTO DIFF | Routin | 08/29/2015 | | Results for this | | | e | 11:00 PM | | procedure are in the | | | | PST | | results section. | + +--------+ + + + | CMV PCR | Routin | 08/29/2015 | | Results for this | | QUANTITATION, PLASMA | e | 11:00 PM | | procedure are in the | | | | PST | | results section. | + +--------+ + + + | INR | Routin | 08/29/2015 | | Results for this | | | e | 11:00 PM | | procedure are in the | | | | PST | | results section. | + +--------+ + + + | CBC, WITH | Routin | 08/29/2015 | | Results for this | | DIFFERENTIAL | e | 11:00 PM | | procedure are in the | | | | PST | | results section. | + +--------+ + + + | COMPLETE METABOLIC | Routin | 08/29/2015 | | Results for this | | SET | e | 11:00 PM | | procedure are in the | | (NA,K,CL,CO2,BUN,CRE | | PST | | results section. | | AT,GLUC,CA,AST,ALT,B | | | | | | YUN TOTAL,ALK | | | | | | PHOS,ALB,PROT TOTAL) | | | | | + +--------+ + + + | PHOSPHORUS, PLASMA | Routin | 08/29/2015 | | Results for this | | | e | 11:00 PM | | procedure are in the | | | | PST | | results section. | + +--------+ + + + | ASPERGILLUS | Routin | 08/29/2015 | | Results for this | | GALACTOMANNAN | e | 11:00 PM | | procedure are in the | | ANTIGEN, SERUM | | PST | | results section. | + +--------+ + + + | MAGNESIUM, PLASMA | Routin | 08/29/2015 | | Results for this | | | e | 11:00 PM | | procedure are in the | | | | PST | | results section. | + +--------+ + + + | LDH TOTAL, PLASMA | Routin | 08/29/2015 | | Results for this | | | e | 11:00 PM | | procedure are in the | | | | PST | | results section. | + +--------+ + + + | VANCOMYCIN, TROUGH | Routin | 08/29/2015 | | Results for this | | | e | 3:48 PM | | procedure are in the | | | | PST | | results section. | + +--------+ + + + | TRANSFUSE RED CELLS, | Routin | 08/29/2015 | | | | LEUKOREDUCED | e | 9:29 AM | | | | | | PST | | | + +--------+ + + + | ANTIBODY SCREEN | Routin | 08/29/2015 | | Results for this | | | e | 2:49 AM | | procedure are in the | | | | PST | | results section. | + +--------+ + + + | TYPE AND SCREEN | Routin | 08/29/2015 | | Results for this | | | e | 2:49 AM | | procedure are in the | | | | PST | | results section. | + +--------+ + + + | ABO & RH TYPE | Routin | 08/29/2015 | | Results for this | | | e | 2:49 AM | | procedure are in the | | | | PST | | results section. | + +--------+ + + + | PRODUCT - RED CELLS | Routin | 08/29/2015 | | Results for this | | LEUKOREDUCED | e | 2:28 AM | | procedure are in the | | | | PST | | results section. | + +--------+ + + + | CBC AND AUTO DIFF | Routin | 08/29/2015 | | Results for this | | | e | 12:42 AM | | procedure are in the | | | | PST | | results section. | + +--------+ + + + | CBC, WITH | Routin | 08/29/2015 | | Results for this | | DIFFERENTIAL | e | 12:42 AM | | procedure are in the | | | | PST | | results section. | + +--------+ + + + | COMPLETE METABOLIC | Routin | 08/29/2015 | | Results for this | | SET | e | 12:42 AM | | procedure are in the | | (NA,K,CL,CO2,BUN,CRE | | PST | | results section. | | AT,GLUC,CA,AST,ALT,B | | | | | | YUN TOTAL,ALK | | | | | | PHOS,ALB,PROT TOTAL) | | | | | + +--------+ + + + | PHOSPHORUS, PLASMA | Routin | 08/29/2015 | | Results for this | | | e | 12:42 AM | | procedure are in the | | | | PST | | results section. | + +--------+ + + + | MAGNESIUM, PLASMA | Routin | 08/29/2015 | | Results for this | | | e | 12:42 AM | | procedure are in the | | | | PST | | results section. | + +--------+ + + + | VANCOMYCIN, TROUGH | Routin | 08/28/2015 | | Results for this | | | e | 8:45 AM | | procedure are in the | | | | PST | | results section. | + +--------+ + + + | C. DIFFICILE TOXIN, | Routin | 08/28/2015 | | Results for this | | W/REFLEX | e | 3:19 AM | | procedure are in the | | CONFIRMATION IF | | PST | | results section. | | INDETERMINATE | | | | | | RESULTS | | | | | + +--------+ + + + | CBC AND AUTO DIFF | Routin | 08/28/2015 | | Results for this | | | e | 1:21 AM | | procedure are in the | | | | PST | | results section. | + +--------+ + + + | CBC, WITH | Routin | 08/28/2015 | | Results for this | | DIFFERENTIAL | e | 1:21 AM | | procedure are in the | | | | PST | | results section. | + +--------+ + + + | COMPLETE METABOLIC | Routin | 08/28/2015 | | Results for this | | SET | e | 1:21 AM | | procedure are in the | | (NA,K,CL,CO2,BUN,CRE | | PST | | results section. | | AT,GLUC,CA,AST,ALT,B | | | | | | YUN TOTAL,ALK | | | | | | PHOS,ALB,PROT TOTAL) | | | | | + +--------+ + + + | PHOSPHORUS, PLASMA | Routin | 08/28/2015 | | Results for this | | | e | 1:21 AM | | procedure are in the | | | | PST | | results section. | + +--------+ + + + | MAGNESIUM, PLASMA | Routin | 08/28/2015 | | Results for this | | | e | 1:21 AM | | procedure are in the | | | | PST | | results section. | + +--------+ + + + | ALLOGENEIC | Routin | 08/27/2015 | | Results for this | | BLOOD-DERIVED | e | 6:19 PM | | procedure are in the | | PERIPHERAL STEM CELL | | PST | | results section. | | TRANSPLANTATION | | | | | + +--------+ + + + | 12 LEAD ECG | Routin | 08/27/2015 | | Results for this | | | e | 6:06 PM | | procedure are in the | | | | PST | | results section. | + +--------+ + + + | PROCEDURE NOTE | Routin | 08/27/2015 | | Results for this | | | e | 1:54 PM | | procedure are in the | | | | PST | | results section. | + +--------+ + + + | ADMINISTER | Routin | 08/27/2015 | | | | CHEMOTHERAPY PER | e | 1:09 PM | | | | TREATMENT PARAMETERS | | PST | | | + +--------+ + + + | RBC MORPHOLOGY | Routin | 08/27/2015 | | Results for this | | | e | 4:36 AM | | procedure are in the | | | | PST | | results section. | + +--------+ + + + | CBC AND AUTO DIFF | Routin | 08/27/2015 | | Results for this | | | e | 4:36 AM | | procedure are in the | | | | PST | | results section. | + +--------+ + + + | MANUAL DIFFERENTIAL | Routin | 08/27/2015 | | Results for this | | | e | 4:36 AM | | procedure are in the | | | | PST | | results section. | + +--------+ + + + | CBC, WITH | Routin | 08/27/2015 | | Results for this | | DIFFERENTIAL | e | 4:36 AM | | procedure are in the | | | | PST | | results section. | + +--------+ + + + | COMPLETE METABOLIC | Routin | 08/27/2015 | | Results for this | | SET | e | 4:36 AM | | procedure are in the | | (NA,K,CL,CO2,BUN,CRE | | PST | | results section. | | AT,GLUC,CA,AST,ALT,B | | | | | | YUN TOTAL,ALK | | | | | | PHOS,ALB,PROT TOTAL) | | | | | + +--------+ + + + | PHOSPHORUS, PLASMA | Routin | 08/27/2015 | | Results for this | | | e | 4:36 AM | | procedure are in the | | | | PST | | results section. | + +--------+ + + + | MAGNESIUM, PLASMA | Routin | 08/27/2015 | | Results for this | | | e | 4:36 AM | | procedure are in the | | | | PST | | results section. 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 | + +--------+ + + + | CULTURE, BLOOD BACTI | Routin | 08/26/2015 | Acute myeloid | Results for this | | & YEAST | e | 4:54 PM | leukemia (AML), M4 | procedure are in the | | | | PST | ([facility]) | results section. | + +--------+ + + + | PRODUCT CD34 STEM | Routin | 08/26/2015 | Acute myeloid | Results for this | | CELLS | e | 4:53 PM | leukemia (AML), M4 | procedure are in the | | | | PST | ([facility]) | results section. | + +--------+ + + + | PRODUCT ADD'L | Routin | 08/26/2015 | Acute myeloid | Results for this | | MARKERS | e | 4:53 PM | leukemia (AML), M4 | procedure are in the | | | | PST | ([facility]) | results section. | + +--------+ + + + | URD HPCA BASIC | Routin | 08/26/2015 | Acute myeloid | Results for this | | PROCESSING | e | 4:52 PM | leukemia (AML), M4 | procedure are in the | | | | PST | ([facility]) | results section. | + +--------+ + + + | PRODUCT MANUAL DIFF | Routin | 08/26/2015 | Acute myeloid | Results for this | | | e | 4:52 PM | leukemia (AML), M4 | procedure are in the | | | | PST | ([facility]) | results section. | + +--------+ + + + | PRODUCT CELL COUNT | Routin | 08/26/2015 | Acute myeloid | Results for this | | | e | 4:52 PM | leukemia (AML), M4 | procedure are in the | | | | PST | ([facility]) | results section. | + +--------+ + + + | VRE (DIAZ) BY PCR | Routin | 08/26/2015 | | Results for this | | | e | 2:11 PM | | procedure are in the | | | | PST | | results section. | + +--------+ + + + | TACROLIMUS, WHOLE | Routin | 08/26/2015 | | Results for this | | BLOOD | e | 10:25 AM | | procedure are in the | | | | PST | | results section. | + +--------+ + + + | TRANSFUSE PLATELET | Routin | 08/26/2015 | | | | PHERESIS, | e | 9:36 AM | | | | LEUKOREDUCED | | PST | | | + +--------+ + + + | PRODUCT - PLATELET | Routin | 08/26/2015 | | Results for this | | PHERESIS | e | 7:32 AM | | procedure are in the | | LEUKOREDUCED | | PST | | results section. | + +--------+ + + + | PLATELET COUNT, | Routin | 08/26/2015 | | Results for this | | WHOLE BLOOD | e | 6:21 AM | | procedure are in the | | | | PST | | results section. | + +--------+ + + + | TRANSFUSE PLATELET | Routin | 08/26/2015 | | | | PHERESIS, | e | 5:51 AM | | | | LEUKOREDUCED | | PST | | | + +--------+ + + + | PRODUCT - PLATELET | Routin | 08/26/2015 | | Results for this | | PHERESIS | e | 4:55 AM | | procedure are in the | | LEUKOREDUCED | | PST | | results section. | + +--------+ + + + | RBC MORPHOLOGY | Routin | 08/26/2015 | | | | | e | 12:51 AM | | | | | | PST | | | + +--------+ + + + | CBC AND AUTO DIFF | Routin | 08/26/2015 | | Results for this | | | e | 12:51 AM | | procedure are in the | | | | PST | | results section. | + +--------+ + + + | MANUAL DIFFERENTIAL | Routin | 08/26/2015 | | Results for this | | | e | 12:51 AM | | procedure are in the | | | | PST | | results section. | + +--------+ + + + | INR | Routin | 08/26/2015 | | Results for this | | | e | 12:51 AM | | procedure are in the | | | | PST | | results section. | + +--------+ + + + | CBC, WITH | Routin | 08/26/2015 | | Results for this | | DIFFERENTIAL | e | 12:51 AM | | procedure are in the | | | | PST | | results section. | + +--------+ + + + | COMPLETE METABOLIC | Routin | 08/26/2015 | | Results for this | | SET | e | 12:51 AM | | procedure are in the | | (NA,K,CL,CO2,BUN,CRE | | PST | | results section. | | AT,GLUC,CA,AST,ALT,B | | | | | | YUN TOTAL,ALK | | | | | | PHOS,ALB,PROT TOTAL) | | | | | + +--------+ + + + | PHOSPHORUS, PLASMA | Routin | 08/26/2015 | | Results for this | | | e | 12:51 AM | | procedure are in the | | | | PST | | results section. | + +--------+ + + + | MAGNESIUM, PLASMA | Routin | 08/26/2015 | | Results for this | | | e | 12:51 AM | | procedure are in the | | | | PST | | results section. | + +--------+ + + + | LDH TOTAL, PLASMA | Routin | 08/26/2015 | | Results for this | | | e | 12:51 AM | | procedure are in the | | | | PST | | results section. | + +--------+ + + + | PRODUCT - PLATELET | Routin | 08/26/2015 | | Results for this | | PHERESIS | e | 12:19 AM | | procedure are in the | | LEUKOREDUCED | | PST | | results section. | + +--------+ + + + | TRANSFUSE PLATELET | Routin | 08/25/2015 | | | | PHERESIS, | e | 9:53 PM | | | | LEUKOREDUCED | | PST | | | + +--------+ + + + | PRODUCT - PLATELET | Routin | 08/25/2015 | | Results for this | | PHERESIS | e | 7:31 PM | | procedure are in the | | LEUKOREDUCED | | PST | | results section. | + +--------+ + + + | UA DIPSTICK ONLY, | Routin | 08/25/2015 | | Results for this | | POC RESULT | e | 1:45 PM | | procedure are in the | | | | PST | | results section. | + +--------+ + + + | VANCOMYCIN, TROUGH | Routin | 08/25/2015 | | Results for this | | | e | 10:10 AM | | procedure are in the | | | | PST | | results section. | + +--------+ + + + | URINE, MICROSCOPIC | Routin | 08/25/2015 | | Results for this | | EXAM | e | 6:04 AM | | procedure are in the | | | | PST | | results section. | + +--------+ + + + | UA DIPSTICK ONLY, | Routin | 08/25/2015 | | Results for this | | POC RESULT | e | 3:00 AM | | procedure are in the | | | | PST | | results section. 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 | + +--------+ + + + | UA DIPSTICK ONLY, | Routin | 08/25/2015 | | Results for this | | POC RESULT | e | 12:51 AM | | procedure are in the | | | | PST | | results section. | + +--------+ + + + | UA DIPSTICK ONLY, | Routin | 08/25/2015 | | Results for this | | POC RESULT | e | 12:31 AM | | procedure are in the | | | | PST | | results section. | + +--------+ + + + | ANTIBODY SCREEN | Routin | 08/25/2015 | | Results for this | | | e | 12:30 AM | | procedure are in the | | | | PST | | results section. | + +--------+ + + + | TYPE AND SCREEN | Routin | 08/25/2015 | | Results for this | | | e | 12:30 AM | | procedure are in the | | | | PST | | results section. | + +--------+ + + + | ABO & RH TYPE | Routin | 08/25/2015 | | Results for this | | | e | 12:30 AM | | procedure are in the | | | | PST | | results section. | + +--------+ + + + | RBC MORPHOLOGY | Routin | 08/25/2015 | | Results for this | | | e | 12:28 AM | | procedure are in the | | | | PST | | results section. | + +--------+ + + + | CBC AND AUTO DIFF | Routin | 08/25/2015 | | Results for this | | | e | 12:28 AM | | procedure are in the | | | | PST | | results section. | + +--------+ + + + | MANUAL DIFFERENTIAL | Routin | 08/25/2015 | | Results for this | | | e | 12:28 AM | | procedure are in the | | | | PST | | results section. | + +--------+ + + + | CBC, WITH | Routin | 08/25/2015 | | Results for this | | DIFFERENTIAL | e | 12:28 AM | | procedure are in the | | | | PST | | results section. | + +--------+ + + + | COMPLETE METABOLIC | Routin | 08/25/2015 | | Results for this | | SET | e | 12:28 AM | | procedure are in the | | (NA,K,CL,CO2,BUN,CRE | | PST | | results section. | | AT,GLUC,CA,AST,ALT,B | | | | | | YUN TOTAL,ALK | | | | | | PHOS,ALB,PROT TOTAL) | | | | | + +--------+ + + + | PHOSPHORUS, PLASMA | Routin | 08/25/2015 | | Results for this | | | e | 12:28 AM | | procedure are in the | | | | PST | | results section. | + +--------+ + + + | MAGNESIUM, PLASMA | Routin | 08/25/2015 | | Results for this | | | e | 12:28 AM | | procedure are in the | | | | PST | | results section. | + +--------+ + + + | CULTURE, BLOOD BACTI | Routin | 08/25/2015 | | Results for this | | & YEAST [facility] | e | 12:27 AM | | procedure are in the | | | | PST | | results section. | + +--------+ + + + | CULTURE, BLOOD BACTI | Routin | 08/25/2015 | | Results for this | | & YEAST | e | 12:27 AM | | procedure are in the | | | | PST | | results section. | + +--------+ + + + | DONOR ENGRAFTMENT | Routin | 08/25/2015 | | Results for this | | STORAGE, BLOOD | e | | | procedure are in the | | | | | | results section. | + +--------+ + + + | TRANSFUSE RED CELLS, | Routin | 08/24/2015 | | | | LEUKOREDUCED | e | 6:49 PM | | | | | | PST | | | + +--------+ + + + | UA DIPSTICK ONLY, | Routin | 08/24/2015 | | Results for this | | POC RESULT | e | 11:56 AM | | procedure are in the | | | | PST | | results section. | + +--------+ + + + | SODIUM, PLASMA | Urgent | 08/24/2015 | | Results for this | | | | 9:36 AM | | procedure are in the | | | | PST | | results section. | + +--------+ + + + | PRODUCT - RED CELLS | Routin | 08/24/2015 | | Results for this | | LEUKOREDUCED | e | 7:47 AM | | procedure are in the | | | | PST | | results section. | + +--------+ + + + | UA DIPSTICK ONLY, | Routin | 08/24/2015 | | Results for this | | POC RESULT | e | 7:42 AM | | procedure are in the | | | | PST | | results section. | + +--------+ + + + | UA DIPSTICK ONLY, | Routin | 08/24/2015 | | Results for this | | POC RESULT | e | 6:00 AM | | procedure are in the | | | | PST | | results section. 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 | + +--------+ + + + | UA DIPSTICK ONLY, | Routin | 08/24/2015 | | Results for this | | POC RESULT | e | 5:30 AM | | procedure are in the | | | | PST | | results section. | + +--------+ + + + | CULTURE, BLOOD BACTI | Routin | 08/24/2015 | | Results for this | | & YEAST [facility] | e | 4:59 AM | | procedure are in the | | | | PST | | results section. | + +--------+ + + + | RBC MORPHOLOGY | Routin | 08/24/2015 | | | | | e | 4:59 AM | | | | | | PST | | | + +--------+ + + + | CBC AND AUTO DIFF | Routin | 08/24/2015 | | Results for this | | | e | 4:59 AM | | procedure are in the | | | | PST | | results section. | + +--------+ + + + | MANUAL DIFFERENTIAL | Routin | 08/24/2015 | | Results for this | | | e | 4:59 AM | | procedure are in the | | | | PST | | results section. | + +--------+ + + + | CBC, WITH | Routin | 08/24/2015 | | Results for this | | DIFFERENTIAL | e | 4:59 AM | | procedure are in the | | | | PST | | results section. | + +--------+ + + + | COMPLETE METABOLIC | Routin | 08/24/2015 | | Results for this | | SET | e | 4:59 AM | | procedure are in the | | (NA,K,CL,CO2,BUN,CRE | | PST | | results section. | | AT,GLUC,CA,AST,ALT,B | | | | | | YUN TOTAL,ALK | | | | | | PHOS,ALB,PROT TOTAL) | | | | | + +--------+ + + + | ANTIBODY SCREEN | Routin | 08/24/2015 | | Results for this | | | e | 4:59 AM | | procedure are in the | | | | PST | | results section. | + +--------+ + + + | TYPE AND SCREEN | Routin | 08/24/2015 | | Results for this | | | e | 4:59 AM | | procedure are in the | | | | PST | | results section. | + +--------+ + + + | ABO & RH TYPE | Routin | 08/24/2015 | | Results for this | | | e | 4:59 AM | | procedure are in the | | | | PST | | results section. | + +--------+ + + + | CULTURE, BLOOD BACTI | Routin | 08/24/2015 | | Results for this | | & YEAST | e | 4:59 AM | | procedure are in the | | | | PST | | results section. | + +--------+ + + + | PHOSPHORUS, PLASMA | Routin | 08/24/2015 | | Results for this | | | e | 4:59 AM | | procedure are in the | | | | PST | | results section. | + +--------+ + + + | MAGNESIUM, PLASMA | Routin | 08/24/2015 | | Results for this | | | e | 4:59 AM | | procedure are in the | | | | PST | | results section. | + +--------+ + + + | UA DIPSTICK ONLY, | Routin | 08/24/2015 | | Results for this | | POC RESULT | e | 3:30 AM | | procedure are in the | | | | PST | | results section. | + +--------+ + + + | UA DIPSTICK ONLY, | Routin | 08/24/2015 | | Results for this | | POC RESULT | e | 1:30 AM | | procedure are in the | | | | PST | | results section. | + +--------+ + + + | UA DIPSTICK ONLY, | Routin | 08/23/2015 | | Results for this | | POC RESULT | e | 9:30 PM | | procedure are in the | | | | PST | | results section. | + +--------+ + + + | UA DIPSTICK ONLY, | Routin | 08/23/2015 | | Results for this | | POC RESULT | e | 6:30 PM | | procedure are in the | | | | PST | | results section. | + +--------+ + + + | UA DIPSTICK ONLY, | Routin | 08/23/2015 | | Results for this | | POC RESULT | e | 5:22 PM | | procedure are in the | | | | PST | | results section. | + +--------+ + + + | UA DIPSTICK ONLY, | Routin | 08/23/2015 | | Results for this | | POC RESULT | e | 3:13 PM | | procedure are in the | | | | PST | | results section. | + +--------+ + + + | UA DIPSTICK ONLY, | Routin | 08/23/2015 | | Results for this | | POC RESULT | e | 12:53 PM | | procedure are in the | | | | PST | | results section. | + +--------+ + + + | UA DIPSTICK ONLY, | Routin | 08/23/2015 | | Results for this | | POC RESULT | e | 11:33 AM | | procedure are in the | | | | PST | | results section. | + +--------+ + + + | URINE, MICROSCOPIC | Routin | 08/23/2015 | Acute myeloid | Results for this | | EXAM | e | 10:33 AM | leukemia (AML), M4 | procedure are in the | | | | PST | ([facility]) | results section. | + +--------+ + + + | CBC AND AUTO DIFF | Routin | 08/22/2015 | | Results for this | | | e | 11:31 PM | | procedure are in the | | | | PST | | results section. | + +--------+ + + + | MANUAL DIFFERENTIAL | Routin | 08/22/2015 | | Results for this | | | e | 11:31 PM | | procedure are in the | | | | PST | | results section. | + +--------+ + + + | CMV PCR | Routin | 08/22/2015 | | Results for this | | QUANTITATION, PLASMA | e | 11:31 PM | | procedure are in the | | | | PST | | results section. | + +--------+ + + + | INR | Routin | 08/22/2015 | | Results for this | | | e | 11:31 PM | | procedure are in the | | | | PST | | results section. | + +--------+ + + + | CBC, WITH | Routin | 08/22/2015 | | Results for this | | DIFFERENTIAL | e | 11:31 PM | | procedure are in the | | | | PST | | results section. | + +--------+ + + + | COMPLETE METABOLIC | Routin | 08/22/2015 | | Results for this | | SET | e | 11:31 PM | | procedure are in the | | (NA,K,CL,CO2,BUN,CRE | | PST | | results section. | | AT,GLUC,CA,AST,ALT,B | | | | | | YUN TOTAL,ALK | | | | | | PHOS,ALB,PROT TOTAL) | | | | | + +--------+ + + + | PHOSPHORUS, PLASMA | Routin | 08/22/2015 | | Results for this | | | e | 11:31 PM | | procedure are in the | | | | PST | | results section. | + +--------+ + + + | URIC ACID, PLASMA | Routin | 08/22/2015 | | Results for this | | | e | 11:31 PM | | procedure are in the | | | | PST | | results section. | + +--------+ + + + | ASPERGILLUS | Routin | 08/22/2015 | | Results for this | | GALACTOMANNAN | e | 11:31 PM | | procedure are in the | | ANTIGEN, SERUM | | PST | | results section. | + +--------+ + + + | MAGNESIUM, PLASMA | Routin | 08/22/2015 | | Results for this | | | e | 11:31 PM | | procedure are in the | | | | PST | | results section. | + +--------+ + + + | LDH TOTAL, PLASMA | Routin | 08/22/2015 | | Results for this | | | e | 11:31 PM | | procedure are in the | | | | PST | | results section. | + +--------+ + + + | VANCOMYCIN, TROUGH | Routin | 08/22/2015 | | Results for this | | | e | 5:21 PM | | procedure are in the | | | | PST | | results section. | + +--------+ + + + | PROCEDURE NOTE | Routin | 08/22/2015 | | Results for this | | | e | 3:48 PM | | procedure are in the | | | | PST | | results section. | + +--------+ + + + | CULTURE, CATH TIP | Urgent | 08/22/2015 | | Results for this | | BACTI | | 12:25 PM | | procedure are in the | | | | PST | | results section. | + +--------+ + + + | CBC AND AUTO DIFF | Routin | 08/22/2015 | | Results for this | | | e | 12:42 AM | | procedure are in the | | | | PST | | results section. | + +--------+ + + + | CBC, WITH | Routin | 08/22/2015 | | Results for this | | DIFFERENTIAL | e | 12:42 AM | | procedure are in the | | | | PST | | results section. | + +--------+ + + + | COMPLETE METABOLIC | Routin | 08/22/2015 | | Results for this | | SET | e | 12:42 AM | | procedure are in the | | (NA,K,CL,CO2,BUN,CRE | | PST | | results section. | | AT,GLUC,CA,AST,ALT,B | | | | | | YUN TOTAL,ALK | | | | | | PHOS,ALB,PROT TOTAL) | | | | | + +--------+ + + + | PHOSPHORUS, PLASMA | Routin | 08/22/2015 | | Results for this | | | e | 12:42 AM | | procedure are in the | | | | PST | | results section. | + +--------+ + + + | MAGNESIUM, PLASMA | Routin | 08/22/2015 | | Results for this | | | e | 12:42 AM | | procedure are in the | | | | PST | | results section. | + +--------+ + + + | NURSING | Routin | 08/22/2015 | Acute myeloid | | | COMMUNICATION #2 - | e | 12:00 AM | leukemia (AML), M4 | | | [place] | | PST | ([facility]) | | + +--------+ + + + | CULTURE, BLOOD BACTI | Routin | 08/22/2015 | | Results for this | | & YEAST [facility] | e | 12:00 AM | | procedure are in the | | | | PST | | results section. | + +--------+ + + + | CULTURE, BLOOD BACTI | Routin | 08/22/2015 | | Results for this | | & YEAST | e | 12:00 AM | | procedure are in the | | | | PST | | results section. | + +--------+ + + + | PRODUCT - RED CELLS | Routin | 08/21/2015 | | Results for this | | LEUKOREDUCED | e | 1:31 AM | | procedure are in the | | | | PST | | results section. | + +--------+ + + + | CBC AND AUTO DIFF | Routin | 08/20/2015 | | Results for this | | | e | 11:03 PM | | procedure are in the | | | | PST | | results section. | + +--------+ + + + | MANUAL DIFFERENTIAL | Routin | 08/20/2015 | | Results for this | | | e | 11:03 PM | | procedure are in the | | | | PST | | results section. | + +--------+ + + + | CBC, WITH | Routin | 08/20/2015 | | Results for this | | DIFFERENTIAL | e | 11:03 PM | | procedure are in the | | | | PST | | results section. | + +--------+ + + + | COMPLETE METABOLIC | Routin | 08/20/2015 | | Results for this | | SET | e | 11:03 PM | | procedure are in the | | (NA,K,CL,CO2,BUN,CRE | | PST | | results section. | | AT,GLUC,CA,AST,ALT,B | | | | | | YUN TOTAL,ALK | | | | | | PHOS,ALB,PROT TOTAL) | | | | | + +--------+ + + + | PHOSPHORUS, PLASMA | Routin | 08/20/2015 | | Results for this | | | e | 11:03 PM | | procedure are in the | | | | PST | | results section. | + +--------+ + + + | MAGNESIUM, PLASMA | Routin | 08/20/2015 | | Results for this | | | e | 11:03 PM | | procedure are in the | | | | PST | | results section. | + +--------+ + + + | CBC AND AUTO DIFF | Routin | 08/19/2015 | | Results for this | | | e | 11:45 PM | | procedure are in the | | | | PST | | results section. | + +--------+ + + + | MANUAL DIFFERENTIAL | Routin | 08/19/2015 | | Results for this | | | e | 11:45 PM | | procedure are in the | | | | PST | | results section. | + +--------+ + + + | CBC, WITH | Routin | 08/19/2015 | | Results for this | | DIFFERENTIAL | e | 11:45 PM | | procedure are in the | | | | PST | | results section. | + +--------+ + + + | COMPLETE METABOLIC | Routin | 08/19/2015 | | Results for this | | SET | e | 11:45 PM | | procedure are in the | | (NA,K,CL,CO2,BUN,CRE | | PST | | results section. | | AT,GLUC,CA,AST,ALT,B | | | | | | YUN TOTAL,ALK | | | | | | PHOS,ALB,PROT TOTAL) | | | | | + +--------+ + + + | PHOSPHORUS, PLASMA | Routin | 08/19/2015 | | Results for this | | | e | 11:45 PM | | procedure are in the | | | | PST | | results section. | + +--------+ + + + | MAGNESIUM, PLASMA | Routin | 08/19/2015 | | Results for this | | | e | 11:45 PM | | procedure are in the | | | | PST | | results section. | + +--------+ + + + | BUSULFAN PK, ORAL | Routin | 08/19/2015 | Acute myeloid | Results for this | | | e | 10:10 AM | leukemia (AML), M4 | procedure are in the | | | | PST | ([facility]) | results section. | + +--------+ + + + | BUSULF[address], ORAL | Routin | 08/19/2015 | Acute myeloid | Results for this | | | e | 9:08 AM | leukemia (AML), M4 | procedure are in the | | | | PST | ([facility]) | results section. | + +--------+ + + + | BUS[address], ORAL | Routin | 08/19/2015 | Acute myeloid | Results for this | | | e | 8:05 AM | leukemia (AML), M4 | procedure are in the | | | | PST | ([facility]) | results section. | + +--------+ + + + | VRE (DIAZ) BY PCR | Routin | 08/19/2015 | | Results for this | | | e | 7:01 AM | | procedure are in the | | | | PST | | results section. | + +--------+ + + + | [address], ORAL | Routin | 08/19/2015 | Acute myeloid | Results for this | | | e | 7:00 AM | leukemia (AML), M4 | procedure are in the | | | | PST | ([facility]) | results section. | + +--------+ + + + | BUS[address], ORAL | Routin | 08/19/2015 | Acute myeloid | Results for this | | | e | 6:00 AM | leukemia (AML), M4 | procedure are in the | | | | PST | ([facility]) | results section. | + +--------+ + + + | PRODUCT - RED CELLS | Routin | 08/19/2015 | | Results for this | | LEUKOREDUCED | e | 5:43 AM | | procedure are in the | | | | PST | | results section. | + +--------+ + + + | BUS[address], ORAL | Routin | 08/19/2015 | Acute myeloid | Results for this | | | e | 5:30 AM | leukemia (AML), M4 | procedure are in the | | | | PST | ([facility]) | results section. | + +--------+ + + + | BUS[address], ORAL | Routin | 08/19/2015 | Acute myeloid | Results for this | | | e | 5:00 AM | leukemia (AML), M4 | procedure are in the | | | | PST | ([facility]) | results section. | + +--------+ + + + | CBC AND AUTO DIFF | Routin | 08/19/2015 | | Results for this | | | e | 4:30 AM | | procedure are in the | | | | PST | | results section. | + +--------+ + + + | BUS[address], ORAL | Routin | 08/19/2015 | Acute myeloid | Results for this | | | e | 4:30 AM | leukemia (AML), M4 | procedure are in the | | | | PST | ([facility]) | results section. | + +--------+ + + + | CBC, WITH | Routin | 08/19/2015 | | Results for this | | DIFFERENTIAL | e | 4:30 AM | | procedure are in the | | | | PST | | results section. | + +--------+ + + + | COMPLETE METABOLIC | Routin | 08/19/2015 | | Results for this | | SET | e | 4:30 AM | | procedure are in the | | (NA,K,CL,CO2,BUN,CRE | | PST | | results section. | | AT,GLUC,CA,AST,ALT,B | | | | | | YUN TOTAL,ALK | | | | | | PHOS,ALB,PROT TOTAL) | | | | | + +--------+ + + + | PHOSPHORUS, PLASMA | Routin | 08/19/2015 | | Results for this | | | e | 4:30 AM | | procedure are in the | | | | PST | | results section. | + +--------+ + + + | URIC ACID, PLASMA | Routin | 08/19/2015 | | Results for this | | | e | 4:30 AM | | procedure are in the | | | | PST | | results section. | + +--------+ + + + | MAGNESIUM, PLASMA | Routin | 08/19/2015 | | Results for this | | | e | 4:30 AM | | procedure are in the | | | | PST | | results section. | + +--------+ + + + | LDH TOTAL, PLASMA | Routin | 08/19/2015 | | Results for this | | | e | 4:30 AM | | procedure are in the | | | | PST | | results section. | + +--------+ + + + | NURSING | Routin | 08/18/2015 | Acute myeloid | | | COMMUNICATION #4 - | e | 7:05 PM | leukemia (AML), M4 | | | [facility] | | PST | ([facility]) | | + +--------+ + + + | NURSING | Routin | 08/18/2015 | Acute myeloid | | | COMMUNICATION #3 - | e | 7:05 PM | leukemia (AML), M4 | | | [facility] | | PST | ([facility]) | | + +--------+ + + + | NURSING | Routin | 08/18/2015 | Acute myeloid | | | COMMUNICATION #1 - | e | 7:05 PM | leukemia (AML), M4 | | | [facility] | | PST | ([facility]) | | + +--------+ + + + | TRANSFUSE PLATELET | Routin | 08/18/2015 | | | | PHERESIS, | e | 6:58 PM | | | | LEUKOREDUCED | | PST | | | + +--------+ + + + | PRODUCT - RED CELLS | Routin | 08/18/2015 | | Results for this | | LEUKOREDUCED | e | 6:54 PM | | procedure are in the | | | | PST | | results section. | + +--------+ + + + | TRANSFUSE PLATELET | Routin | 08/18/2015 | | | | PHERESIS, | e | 6:50 PM | | | | LEUKOREDUCED | | PST | | | + +--------+ + + + | ADMINISTER | Routin | 08/18/2015 | | | | CHEMOTHERAPY PER | e | 6:42 PM | | | | TREATMENT PARAMETERS | | PST | | | + +--------+ + + + | RBC MORPHOLOGY | Routin | 08/18/2015 | | Results for this | | | e | 4:48 PM | | procedure are in the | | | | PST | | results section. | + +--------+ + + + | CBC AND AUTO DIFF | Routin | 08/18/2015 | | Results for this | | | e | 4:48 PM | | procedure are in the | | | | PST | | results section. | + +--------+ + + + | MANUAL DIFFERENTIAL | Routin | 08/18/2015 | | Results for this | | | e | 4:48 PM | | procedure are in the | | | | PST | | results section. | + +--------+ + + + | INR | Routin | 08/18/2015 | | Results for this | | | e | 4:48 PM | | procedure are in the | | | | PST | | results section. | + +--------+ + + + | CBC, WITH | Routin | 08/18/2015 | | Results for this | | DIFFERENTIAL | e | 4:48 PM | | procedure are in the | | | | PST | | results section. | + +--------+ + + + | COMPLETE METABOLIC | Routin | 08/18/2015 | | Results for this | | SET | e | 4:48 PM | | procedure are in the | | (NA,K,CL,CO2,BUN,CRE | | PST | | results section. | | AT,GLUC,CA,AST,ALT,B | | | | | | YUN TOTAL,ALK | | | | | | PHOS,ALB,PROT TOTAL) | | | | | + +--------+ + + + | IGG, SERUM | Routin | 08/18/2015 | | Results for this | | | e | 4:48 PM | | procedure are in the | | | | PST | | results section. | + +--------+ + + + | IGA, SERUM | Routin | 08/18/2015 | | Results for this | | | e | 4:48 PM | | procedure are in the | | | | PST | | results section. | + +--------+ + + + | ANTIBODY SCREEN | Routin | 08/18/2015 | | Results for this | | | e | 4:48 PM | | procedure are in the | | | | PST | | results section. | + +--------+ + + + | TYPE AND SCREEN | Routin | 08/18/2015 | | Results for this | | | e | 4:48 PM | | procedure are in the | | | | PST | | results section. | + +--------+ + + + | ABO & RH TYPE | Routin | 08/18/2015 | | Results for this | | | e | 4:48 PM | | procedure are in the | | | | PST | | results section. | + +--------+ + + + | PHOSPHORUS, PLASMA | Routin | 08/18/2015 | | Results for this | | | e | 4:48 PM | | procedure are in the | | | | PST | | results section. | + +--------+ + + + | BILIRUBIN DIRECT | Routin | 08/18/2015 | | Results for this | | | e | 4:48 PM | | procedure are in the | | | | PST | | results section. | + +--------+ + + + | URIC ACID, PLASMA | Routin | 08/18/2015 | | Results for this | | | e | 4:48 PM | | procedure are in the | | | | PST | | results section. | + +--------+ + + + | MAGNESIUM, PLASMA | Routin | 08/18/2015 | | Results for this | | | e | 4:48 PM | | procedure are in the | | | | PST | | results section. | + +--------+ + + + | LDH TOTAL, PLASMA | Routin | 08/18/2015 | | Results for this | | | e | 4:48 PM | | procedure are in the | | | | PST | | results section. | + +--------+ + + + | PRODUCT - PLATELET | Routin | 08/18/2015 | | Results for this | | PHERESIS | e | 8:49 AM | | procedure are in the | | LEUKOREDUCED | | PST | | results section. | + +--------+ + + + | PRODUCT - PLATELET | Routin | 08/18/2015 | | Results for this | | PHERESIS | e | 8:49 AM | | procedure are in the | | LEUKOREDUCED | | PST | | results section. | + +--------+ + + + documented in this encounter Results TACROLIMUS, WHOLE BLOOD (09/13/2015 8:12 AM PST) + +-------+ + + + | Component | Value | Ref Range | Performed | Pathologist | | | | | At | Signature | + +-------+ + + + | TACROLIMUS | 8.3 | 5.0 - 15.0 | [facility] | [...] | + + + + + | [facility] | [address] | [place] [address] | | | SERVICES, SPECIAL | [address] | | | | IMM + COAG | | | | + + + + + RBC MORPHOLOGY (09/12/2015 11:26 PM PST) + + + + + + | Component | Value | Ref Range | Performed | Pathologist | | | | | At | Signature | + + + + + + | DOHLE | Present | | [facility] | | | BODIES | | | LABORATORY | | | | | | SERVICES, | | | | | | CORE | | + + + + + + | TOXIC | Present | | [facility] | | | GRANULATION | | | LABORATORY | | | [...] + + + + + + | MICROCYTOSI | 1+(10-25cells/HPF) | | [facility] | | | S | | | LABORATORY | | | | | | SERVICES, | | | | | | CORE | | + + + + + + | SCHISTOCYTE | 1+ (<1-2cells/HPF) | | [facility] | | | S [...] [facility] | [address] | [place] [address] | | | SERVICES, CORE | [address] | | | + + + + + MANUAL DIFFERENTIAL (09/12/2015 11:26 PM PST) + + + + + + | Component | Value | Ref Range | Performed | Pathologist | | | | | At | Signature | + + + + + + | NEUTROPHIL | 74.6 (H) | 50.0 - 70.0 % | [facility] | | | % | | | LABORATORY | | | | | | SERVICES, | | | | | | CORE | | + + + + + + | LYMPHOCYTE | 9.6 (L) | 18.0 - 42.0 % | [facility] | | | % | | | LABORATORY | | | | | | SERVICES, | | | | | | CORE | | + + + + + + | MONOCYTE % | 11.4 (H) | 3.5 - 9.0 % | [...] + + + + | IG% | 3.5 (H)Comment: Immature | 0.0 - 0.6 % [...] + + + + | NEUTROPHIL | 6.92 | 1.80 - 7.70 | [facility] | | | # | | K/cu mm | LABORATORY | | | | | | SERVICES, | | | | | | CORE | | + + + + + + | LYMPHOCYTE | 0.89 (L) | 1.00 - 4.80 | [facility] | | | # | | K/cu mm | LABORATORY | | | | | | SERVICES, | | | | | | CORE | | + + + + + + | MONOCYTE # | 1.06 (H) | 0.10 - 0.90 | [facility] | | | | | K/cu mm | LABORATORY | | | | | | SERVICES, | | | | | | CORE | | + + + + + + | EOSINOPHIL | 0.08 | 0.00 - 0.50 | [facility] | [...] + + + + | IG# | 0.32 (H) | 0.00 - 0.03 | [facility] [...] + + + + + | [facility] | [address] | [place] [address] | | | SERVICES, CORE | [address] | | | + + + + + CBC AND AUTO DIFF (09/12/2015 11:26 PM PST) + + + + + + | Component | Value | Ref Range | Performed | Pathologist | | | | | At | Signature | + + + + + + | WHITE CELL | 9.27 | 4.40 - 11.00 | [facility] | | | COUNT | | K/cu mm | LABORATORY | | | | | | SERVICES, | | | | | | CORE | | + + + + + + | RED CELL | 2.95 (L) | 4.50 - 6.00 | [facility] | | | COUNT | | M/cu mm | LABORATORY | | | | | | SERVICES, | | | | | | CORE | | + + + + + + | HEMOGLOBIN | 8.6 (L) | 13.5 - 17.5 | [facility] | | | | | g/dL | LABORATORY | | | | | | SERVICES, | | | | | | CORE | | + + + + + + | HEMATOCRIT | 24.9 (L) | 41.0 - 53.0 % | [facility] | | | | | | LABORATORY | | | | | | SERVICES, | | | | | | CORE | | + + + + + + | MCV | 84.4 | 80.0 - 96.0 fL | [facility] | | | | | | LABORATORY | | | | | | SERVICES, | | | | | | CORE | | + + + + + + | MCHC | 34.5 | 33.0 - 35.5 | [facility] | | | | | g/dL | LABORATORY | | | | | | SERVICES, | | | | | | CORE | | + + + + + + | RDW SD | 40.3 | 35.1 - 46.3 fL | [facility] | | | | | | LABORATORY | | | | | | SERVICES, | | | | | | CORE | | + + + + + + | PLATELET | 30 (L) | 150 - 400 K/cu | [facility] | | | COUNT | | mm | LABORATORY | | | | | | SERVICES, | | | | | | CORE | | + + + + + + | MPV | 11.3 | 9.7 - 12.3 fL | [facility] | | | | | | LABORATORY | | | | | | SERVICES, | | | | | | CORE | | + + + + + + | NRBC% | 0.8 (H) | 0.0 - 0.3 % | [facility] | | | | | | LABORATORY | | | | | | SERVICES, | | | | | | CORE | | + + + + + + | NRBC# | 0.07 (H) | 0.00 - 0.02 | [facility] [...] | + + + + + | [facility] | [address] | [place] [address] | | | SERVICES, CORE | [address] | | | + + + + + ASPERGILLUS GALACTOMANNAN ANTIGEN, SERUM (09/12/2015 11:26 PM PST) + + + + + [...] + + + | ASP GAL | 0.18 | <=0.49 Index | [facility] | | [...] + + | Performing | Address | City/State/[facility] | Phone Number | | Organization | | | | + + + + + | [facility] | [address] | [place] [address] | | | SPECIAL KOLE | [address] | | | | IMM + COAG | | | | + + + + + CMV PCR QUANTITATION, PLASMA (09/12/2015 11:26 PM PST) + + + + + [...] may not reflect true | [facility] | | biological changes and [...] | | | characteristics determined by the [facility] | | | Molecular Diagnostic Center. It has not been cleared or approved by | | | the Food and Drug Administration. FDA approval is not required for | | | clinical use of this test, and therefore validation was done as | | | required under the requirements of the Clinical Laboratory Improvement | | | Act of 1988. The [facility] Molecular | | | Diagnostic Center is a fully licensed and/or accredited clinical | | | laboratory under CLIA, CAP, and the [facility]. | | + + + + + + + + | Performing | Address | City/State/Zipcode | Phone Number | | Organization | | | | + + + + + | [facility] | [phone] | [place] [address] | | | DIAGNOSTIC | [address] | | | | LABORATORIES | | | | + + + + + INR (09/12/2015 11:26 PM PST) + +-------+ + + + | Component | Value | Ref Range | Performed | Pathologist | | | | | At | Signature | + +-------+ + + + | INR | 1.19 | 0.90 - 1.20 INR | [facility] [...] | + + + + + | [facility] | [address] | [place] [address] | | | SERVICES, CORE | [address] | | | + + + + + LDH TOTAL, PLASMA (09/12/2015 11:26 PM PST) + +---------+ + + + | Component | Value | Ref Range | Performed | Pathologist | | | | | At | Signature | + +---------+ + + + | LD TOTAL, | 401 (H) | <=250 U/L | [facility] | [...] + | [facility] | [address] | [place] [address] | | | SERVICES, CORE | [address] | | | + + + + + PHOSPHORUS, PLASMA (09/12/2015 11:26 PM PST) + +-------+ + + + [...] + + + + + | [facility] | [address] | [place] [address] | | | SERVICES, CORE | [address] | | | + + + + + MAGNESIUM, PLASMA (09/12/2015 11:26 PM PST) + +---------+ + + + | Component | Value | Ref Range | Performed | Pathologist | | | | | At | Signature | + +---------+ + + + | MAGNESIUM,P | 1.4 (L) | 1.8 - 2.5 mg/dL | [facility] | | | LASMA | | | [...] | + + + + + | [facility] | [address] | [place] [address] | | | SERVICES, CORE | [address] | | | + + + + + COMPLETE METABOLIC SET (NA,K,CL,CO2,BUN,CREAT,GLUC,CA,AST,ALT,BILI TOTAL,ALK PHOS,ALB,PROT TOTAL) (09/12/2015 11:26 PM PST) + +---------+ + + + [...] +---------+ + + + | CREATININE | 0.96 | 0.70 - 1.30 | [facility] | | | PLASMA | | mg/dL | LABORATORY | | | (LAB) | | | SERVICES, | | | | | | CORE | | + +---------+ + + + | EGFR | >60 | >60 mL/min | [facility] | | | - | | | LABORATORY | | | MEXICAN | | | SERVICES, | | | | | | CORE | | + +---------+ + + + | EGFR NON | >60 | >60 mL/min | [facility] | | | -JOANNE | | | LABORATORY | | | RICAN | | | SERVICES, | | | | | | CORE | | + +---------+ + + + | SODIUM, | 142 | 136 - 145 | [facility] | [...] +---------+ + + + | CHLORIDE, | 109 (H) | 97 - 108 mmol/L | [facility] | | | PLASMA | | | LABORATORY | | | (LAB) | | | SERVICES, | | | | | | CORE | | + +---------+ + + + | TOTAL CO2, | 25 | 21 - 32 mmol/L | [facility] | | | PLASMA | | | LABORATORY | | | (LAB) | | | SERVICES, | | | | | | CORE | | + +---------+ + + + | CALCIUM, | 8.3 (L) | 8.6 - 10.2 | [facility] | [...] +---------+ + + + | TOTAL | 6.1 (L) | 6.4 - 8.2 g/dL | [facility] | | | PROTEIN, | | | LABORATORY | | | PLASMA | | | SERVICES, | | | (LAB) | | | CORE | | + +---------+ + + + | ALBUMIN, | 3.0 (L) | 3.5 - 4.7 g/dL | [...] + + + | ALT (SGPT) | 35 | <=60 U/L | [facility] | | [...] | + + + + + | [facility] | [address] | [place] [address] | | | SERVICES, CORE | [address] | | | + + + + + COAGULOPATHY PANEL (INR,APTT,FIBRINOGEN) (09/12/2015 10:26 AM PST) + + + + + + | Component | Value | Ref Range | Performed | Pathologist | | | | | At | Signature | + + + + + + | INR | 1.24 (H) | 0.90 - 1.20 INR | [facility] | | | | | | LABORATORY | | | | | | SERVICES, | | | | | | CORE | | + + + + + + | APTT | 33.7 | 26.0 - 36.0 | [facility] | | | | | seconds | LABORATORY | | | | | | SERVICES, | | | | | | CORE | | + + + + + + | FIBRINOGEN | 512 (H) | 200 - 450 mg/dL | [facility] | | | LEVEL | | | LABORATORY | | | [...] with mech. valves (2.5 - 3.5) INR APTT | SERVICES, CORE | | Therapeutic Range: (75 - 120) sec | | | Heparin levels of 0.35 - 0.7 U/mL | | + + + + + + + + | Performing | Address | City/State/Zipcode | Phone Number | | Organization | | | | + + + + + | [facility] | [address] | [place] [address] | | | SERVICES, CORE | [address] | | | + + + + + RBC MORPHOLOGY (09/11/2015 11:13 PM PST) + + + + + + | Component | Value | Ref Range | Performed | Pathologist | | | | | At | Signature | + + + + + + | TONNY | Present | | [facility] | | | BODIES | | | LABORATORY | | | | | | SERVICES, | | | | | | CORE | | + + + + + + | TOXIC | Present | | [facility] | | | GRANULATION | | | LABORATORY | | | | | | SERVICES, | | | | | | CORE | | + + + + + + | POLYCHROMAS | 1+ (<1-2cells/HPF) | | [facility] | | | IA | | | LABORATORY | | | [...] [facility] | [address] | [place] [address] | | | SERVICES, CORE | [address] | | | + + + + + MANUAL DIFFERENTIAL (09/11/2015 11:13 PM PST) + + + + + + | Component | Value | Ref Range | Performed | Pathologist | | | | | At | Signature | + + + + + + | NEUTROPHIL | 78.6 (H) | 50.0 - 70.0 % | [facility] | | | % | | | LABORATORY | | | | | | SERVICES, | | | | | | CORE | | + + + + + + | LYMPHOCYTE | 7.1 (L) | 18.0 - 42.0 % | [facility] | | | % | | | LABORATORY | | | | | | SERVICES, | | | | | | CORE | | + + + + + + | MONOCYTE % | 8.0 | 3.5 - 9.0 % | [facility] [...] + + + | BASOPHIL % | 1.8 | 0.0 - 2.0 % | [facility] | | | | | | LABORATORY | | | | | | SERVICES, | | | | | | CORE | | + + + + + + | IG% | 3.6 (H)Comment: Immature | 0.0 - 0.6 % [...] + + + + | NEUTROPHIL | 4.29 | 1.80 - 7.70 | [facility] | | | # | | K/cu mm | LABORATORY | | | | | | SERVICES, | | | | | | CORE | | + + + + + + | LYMPHOCYTE | 0.39 (L) | 1.00 - 4.80 | [facility] | | | # | | K/cu mm | LABORATORY | | | | | | SERVICES, | | | | | | CORE | | + + + + + + | MONOCYTE # | 0.44 | 0.10 - 0.90 | [facility] | | | | | K/cu mm | LABORATORY | | | | | | SERVICES, | | | | | | CORE | | + + + + + + | EOSINOPHIL | 0.05 | 0.00 - 0.50 | [facility] | | | # | | K/cu mm | LABORATORY | | | | | | SERVICES, | | | | | | CORE | | + + + + + + | BASOPHIL # | 0.10 | 0.00 - 0.10 | [facility] | | | | | K/cu mm | LABORATORY | | | | | | SERVICES, | | | | | | CORE | | + + + + + + | IG# | 0.20 (H) | 0.00 - 0.03 | [facility] [...] [facility] | [address] | [place] [address] | | | INDRA SHARIF | [address] | | | + + + + + CBC AND AUTO DIFF (09/11/2015 11:13 PM PST) + + + + + + | Component | Value | Ref Range | Performed | Pathologist | | | | | At | Signature | + + + + + + | WHITE CELL | 5.46 | 4.40 - 11.00 | [facility] | | | COUNT | | K/cu mm | LABORATORY | | | | | | SERVICES, | | | | | | CORE | | + + + + + + | RED CELL | 2.93 (L) | 4.50 - 6.00 | [facility] | | | COUNT | | M/cu mm | LABORATORY | | | | | | SERVICES, | | | | | | CORE | | + + + + + + | HEMOGLOBIN | 8.5 (L) | 13.5 - 17.5 | [facility] | | | | | g/dL | LABORATORY | | | | | | SERVICES, | | | | | | CORE | | + + + + + + | HEMATOCRIT | 24.4 (L) | 41.0 - 53.0 % | [facility] | | | | | | LABORATORY | | | | | | SERVICES, | | | | | | CORE | | + + + + + + | MCV | 83.3 | 80.0 - 96.0 fL | [facility] [...] + + + | RDW SD | 39.8 | 35.1 - 46.3 fL | [facility] | | | | | | LABORATORY | | | | | | SERVICES, | | | | | | CORE | | + + + + + + | PLATELET | 34 (L) | 150 - 400 K/cu | [facility] | | | COUNT | | mm | LABORATORY | | | | | | SERVICES, | | | | | | CORE | | + + + + + + | MPV | 11.5 | 9.7 - 12.3 fL | [facility] | | | | | | LABORATORY | | | | | | SERVICES, | | | | | | CORE | | + + + + + + | NRBC% | 1.8 (H) | 0.0 - 0.3 % | [facility] | | | | | | LABORATORY | | | | | | SERVICES, | | | | | | CORE | | + + + + + + | NRBC# | 0.10 (H) | 0.00 - 0.02 | [facility] [...] | + + + + + | [facility] | [address] | [place] [address] | | | SERVICES, CORE | [address] | | | + + + + + PHOSPHORUS, PLASMA (09/11/2015 11:13 PM PST) + +-------+ + + + | Component | Value | Ref Range | Performed | Pathologist | | | | | At | Signature | + +-------+ + + + | PHOSPHORUS, | 2.9 | 2.4 - 4.7 mg/dL | [facility] [...] [facility] | [address] | [place] [address] | | | SERVICES, INDRA | [address] | | | + + + + + MAGNESIUM, PLASMA (09/11/2015 11:13 PM PST) + +-------+ + + + [...] [facility] | [address] | [place] [address] | | | SERVICES, CORE | [address] | | | + + + + + COMPLETE METABOLIC SET (NA,K,CL,CO2,BUN,CREAT,GLUC,CA,AST,ALT,BILI TOTAL,ALK PHOS,ALB,PROT TOTAL) (09/11/2015 11:13 PM PST) + +---------+ + + + | Component | Value | Ref Range | Performed | Pathologist | | | | | At | Signature | + +---------+ + + + | GLUCOSE, | 95 | 60 - 99 mg/dL | [facility] | | | PLASMA | | | LABORATORY | | | (LAB) | | | SERVICES, | | | | | | CORE | | + +---------+ + + + | BUN, PLASMA | 19 | 6 - 20 mg/dL | [facility] | | | (LAB) | | | LABORATORY | | | | | | SERVICES, | | | | | | CORE | | + +---------+ + + + | CREATININE | 0.94 | 0.70 - 1.30 | [facility] | | | PLASMA | | mg/dL | LABORATORY | | | (LAB) | | | SERVICES, | | | | | | CORE | | + +---------+ + + + | EGFR | >60 | >60 mL/min | [facility] | | | - | | | LABORATORY | | | MEXICAN | | | SERVICES, | | | [...] +---------+ + + + | CHLORIDE, | 109 (H) | 97 - 108 mmol/L | [facility] | | | PLASMA | | | LABORATORY | | | (LAB) | | | SERVICES, | | | | | | CORE | | + +---------+ + + + | TOTAL CO2, | 25 | 21 - 32 mmol/L | [facility] | | | PLASMA | | | LABORATORY | | | (LAB) | | | SERVICES, | | | | | | CORE | | + +---------+ + + + | CALCIUM, | 8.0 (L) | 8.6 - 10.2 | [facility] | [...] +---------+ + + + | TOTAL | 6.1 (L) | 6.4 - 8.2 g/dL | [facility] | | | PROTEIN, | | | LABORATORY | | | PLASMA | | | SERVICES, | | | (LAB) | | | CORE | | + +---------+ + + + | ALBUMIN, | 2.9 (L) | 3.5 - 4.7 g/dL | [...] +---------+ + + + | ANION | 11 | 4 - 11 mmol/L | [facility] [...] the MDRD equation recommended by the | [facility] | | National Kidney Disease Education Program. [...] [facility] | [address] | [place] [address] | | | SERVICES, CORE | [address] | | | + + + + + PRODUCT - PLATELET PHERESIS LEUKOREDUCED (09/11/2015 6:07 PM PST) + + + + + [...] + + + + | PRODUCT | [id number] | | [facility] | | | UNIT [...] + + + + | EXPIRATION | [id number] | | [facility] | | | DATE [...] + + + + | BLOOD | [id number] | | [facility] | | | PRODUCT [...] [facility] | [address] | [place] [address] | | | PATHOLOGY | [address] | | | + + + + + RBC MORPHOLOGY (09/10/2015 11:00 PM PST) + + + + + + | Component | Value | Ref Range | Performed | Pathologist | | | | | At | Signature | + + + + + + | DOHLE | Present | | [facility] | | | BODIES | | | LABORATORY | | | | | | SERVICES, | | | | | | CORE | | + + + + + + | POLYCHROMAS | 1+ (<1-2cells/HPF) | | [facility] | | | [place] | | | LABORATORY | | | [...] | + + + + + | [facility] | [address] | [place] [address] | | | SERVICES, CORE | [address] | | | + + + + + MANUAL DIFFERENTIAL (09/10/2015 11:00 PM PST) + + + + + + | Component | Value | Ref Range | Performed | Pathologist | | | | | At | Signature | + + + + + + | NEUTROPHIL | 62.8 | 50.0 - 70.0 % | [facility] | | | % | | | LABORATORY | | | | | | SERVICES, | | | | | | CORE | | + + + + + + | LYMPHOCYTE | 17.7 (L) | 18.0 - 42.0 % | [facility] | | | % | | | LABORATORY | | | | | | SERVICES, | | | | | | CORE | | + + + + + + | MONOCYTE % | 12.4 (H) | 3.5 - 9.0 % | [...] + + + | BASOPHIL % | 0.9 | 0.0 - 2.0 % | [facility] | | | | | | LABORATORY | | | | | | SERVICES, | | | | | | CORE | | + + + + + + | IG% | 6.2 (H)Comment: Immature | 0.0 - 0.6 % [...] + + + + | NEUTROPHIL | 1.78 (L) | 1.80 - 7.70 | [facility] | | | # | | K/cu mm | LABORATORY | | | | | | SERVICES, | | | | | | CORE | | + + + + + + | LYMPHOCYTE | 0.50 (L) | 1.00 - 4.80 | [facility] | | | # | | K/cu mm | LABORATORY | | | | | | SERVICES, | | | | | | CORE | | + + + + + + | MONOCYTE # | 0.35 | 0.10 - 0.90 | [facility] | [...] + + + | BASOPHIL # | 0.03 | 0.00 - 0.10 | [facility] | | | | | K/cu mm | LABORATORY | | | | | | SERVICES, | | | | | | CORE | | + + + + + + | IG# | 0.18 (H) | 0.00 - 0.03 | [facility] [...] + + | [facility] | [address] | [place] [address] | | | SERVICES, CORE | [address] | | | + + + + + CBC AND AUTO DIFF (09/10/2015 11:00 PM PST) + + + + + + | Component | Value | Ref Range | Performed | Pathologist | | | | | At | Signature | + + + + + + | WHITE CELL | 2.83 (L) | 4.40 - 11.00 | [facility] | | | COUNT | | K/cu mm | LABORATORY | | | | | | SERVICES, | | | | | | CORE | | + + + + + + | RED CELL | 3.11 (L) | 4.50 - 6.00 | [facility] | | | COUNT | | M/cu mm | LABORATORY | | | | | | SERVICES, | | | | | | CORE | | + + + + + + | HEMOGLOBIN | 9.1 (L) | 13.5 - 17.5 | [facility] | | | | | g/dL | LABORATORY | | | | | | SERVICES, | | | | | | CORE | | + + + + + + | HEMATOCRIT | 25.9 (L) | 41.0 - 53.0 % | [facility] | | | | | | LABORATORY | | | | | | SERVICES, | | | | | | CORE | | + + + + + + | MCV | 83.3 | 80.0 - 96.0 fL | [facility] | | | | | | LABORATORY | | | | | | SERVICES, | | | | | | CORE | | + + + + + + | MCHC | 35.1 | 33.0 - 35.5 | [facility] | | | | | g/dL | LABORATORY | | | | | | SERVICES, | | | | | | CORE | | + + + + + + | RDW SD | 40.4 | 35.1 - 46.3 fL | [facility] | | | | | | LABORATORY | | | | | | SERVICES, | | | | | | CORE | | + + + + + + | PLATELET | 29 (L) | 150 - 400 K/cu | [facility] | | | COUNT | | mm | LABORATORY | | | | | | SERVICES, | | | | | | CORE | | + + + + + + | MPV | 10.3 | 9.7 - 12.3 fL | [facility] | | | | | | LABORATORY | | | | | | SERVICES, | | | | | | CORE | | + + + + + + | NRBC% | 3.5 (H) | 0.0 - 0.3 % | [facility] | | | | | | LABORATORY | | | | | | SERVICES, | | | | | | CORE | | + + + + + + | NRBC# | 0.10 (H) | 0.00 - 0.02 | [facility] [...] | + + + + + | [facility] | [address] | [place] [address] | | | SERVICES, CORE | [address] | | | + + + + + PHOSPHORUS, PLASMA (09/10/2015 11:00 PM PST) + +-------+ + + + [...] [facility] | [address] | [place] [address] | | | SERVICES, CORE | [address] | | | + + + + + MAGNESIUM, PLASMA (09/10/2015 11:00 PM PST) + +---------+ + + + | Component | Value | Ref Range | Performed | Pathologist | | | | | At | Signature | + +---------+ + + + | MAGNESIUM,P | 1.6 (L) | 1.8 - 2.5 [...] + | [facility] | [address] | [place] [address] | | | SERVICES, CORE | [address] | | | + + + + + COMPLETE METABOLIC SET (NA,K,CL,CO2,BUN,CREAT,GLUC,CA,AST,ALT,BILI TOTAL,ALK PHOS,ALB,PROT TOTAL) (09/10/2015 11:00 PM PST) + +---------+ + + + [...] + + + | BUN, PLASMA | 22 (H) | 6 - 20 mg/dL | [...] | | | LABORATORY | | | [place] | | | SERVICES, | | | | | | CORE | | + +---------+ + + + | EGFR NON | >60 | >60 mL/min | [facility] | | | -[facility]AN[facility] | | | LABORATORY | | | [place] | | | SERVICES, | | | | | | CORE | | + +---------+ + + + | SODIUM, | 144 | 136 - 145 | [facility] | [...] +---------+ + + + | CHLORIDE, | 113 (H) | 97 - 108 mmol/L | [facility] | | | PLASMA | | | LABORATORY | | | (LAB) | | | SERVICES, | | | | | | CORE | | + +---------+ + + + | TOTAL CO2, | 21 | 21 - 32 mmol/L | [facility] | | | PLASMA | | | LABORATORY | | | (LAB) | | | SERVICES, | | | | | | CORE | | + +---------+ + + + | CALCIUM, | 8.1 (L) | 8.6 - 10.2 | [facility] | [...] +---------+ + + + | TOTAL | 5.8 (L) | 6.4 - 8.2 g/dL | [facility] | | | PROTEIN, | | | LABORATORY | | | PLASMA | | | SERVICES, | | | (LAB) | | | CORE | | + +---------+ + + + | ALBUMIN, | 2.7 (L) | 3.5 - 4.7 g/dL | [...] +---------+ + + + | AST(SGOT) | 18 | <=41 U/L | [facility] | | | | | | LABORATORY | | | | | | SERVICES, | | | | | | CORE | | + +---------+ + + + | ALT (SGPT) | 28 | <=60 U/L | [facility] | | | | | | LABORATORY | | | | | | SERVICES, | | | | | | CORE | | + +---------+ + + + | ANION | 13 (H) | 4 - 11 mmol/L | [facility] [...] the MDRD equation recommended by the | [facility] | | National Kidney Disease Education Program. [...] + + + + + | [facility] | [address] | [place] [address] | | | SERVICES, CORE | [address] | | | + + + + + VRE (DIAZ) BY PCR (09/10/2015 5:30 PM PST) + + + + + + | Component | Value | Ref Range | Performed | Pathologist | | | | | At | Signature | + + + + + + | VRE BY PCR | Negative for Van A gene | Negative for | [facility] | | | | | Van A gene | LABORATORY | | | | | | SERVICES, | | | | | | CORE | | + + + + + + + + | Specimen | + + | Swab - Rectum | | structure (body | | structure) | + + + + + + + | Performing | Address | City/State/Zipcode | Phone Number | | Organization | | | | + + + + + | [facility] | [address] | [place] [address] | | | SERVICES, CORE | [address] | | | + + + + + PRODUCT - PLATELET PHERESIS LEUKOREDUCED (09/10/2015 2:28 AM PST) + + + + + [...] + + + + | PRODUCT | [id number] | | [facility] | | | UNIT [...] + + + + | EXPIRATION | [id number] | | [facility] | | | DATE [...] + + + + | BLOOD | [id number] | | [facility] | | | PRODUCT [...] | + + + + + | [facility] | [address] | [place] [address] | | | PATHOLOGY | [address] | | | + + + + + RBC MORPHOLOGY (09/10/2015 12:05 AM PST) + + + + + + | Component | Value | Ref Range | Performed | Pathologist | | | | | At | Signature | + + + + + + | SCHISTOCYTE | 1+ (<1-2cells/HPF) | | [facility] | | | S [...] + + | [facility] | [address] | [place] [address] | | | SERVICES, INDRA | [address] | | | + + + + + MANUAL DIFFERENTIAL (09/10/2015 12:05 AM PST) + + + + + + | Component | Value | Ref Range | Performed | Pathologist | | | | | At | Signature | + + + + + + | NEUTROPHIL | 74.8 (H) | 50.0 - 70.0 % | [facility] | | | % | | | LABORATORY | | | | | | SERVICES, | | | | | | CORE | | + + + + + + | LYMPHOCYTE | 12.2 (L) | 18.0 - 42.0 % | [facility] | | | % | | | LABORATORY | | | | | | SERVICES, | | | | | | CORE | | + + + + + + | MONOCYTE % | 12.1 (H)Comment: Some | 3.5 - 9.0 % | [facility] | | | | Monocytes appear | | LABORATORY | | | | immature on scan. | | SERVICES, | | [...] + + + + | NEUTROPHIL | 1.14 (L) | 1.80 - 7.70 | [facility] | | | # | | K/cu mm | LABORATORY | | | | | | SERVICES, | | | | | | CORE | | + + + + + + | LYMPHOCYTE | 0.19 (L) | 1.00 - 4.80 | [facility] | | | # | | K/cu mm | LABORATORY | | | | | | SERVICES, | | | | | | CORE | | + + + + + + | MONOCYTE # | 0.18 | 0.10 - 0.90 | [facility] | | | | | K/cu mm | LABORATORY | | | | | | SERVICES, | | | | | | CORE | | + + + + + + | EOSINOPHIL | 0.01 | 0.00 - 0.50 | [facility] | [...] [facility] | [address] | [place] [address] | | | INDRA SHARIF | [address] | | | + + + + + CBC AND AUTO DIFF (09/10/2015 12:05 AM PST) + + + + + + | Component | Value | Ref Range | Performed | Pathologist | | | | | At | Signature | + + + + + + | WHITE CELL | 1.52 (L) | 4.40 - 11.00 | [facility] | | | COUNT | | K/cu mm | LABORATORY | | | | | | SERVICES, | | | | | | CORE | | + + + + + + | RED CELL | 3.00 (L) | 4.50 - 6.00 | [facility] | | | COUNT | | M/cu mm | LABORATORY | | | | | | SERVICES, | | | | | | CORE | | + + + + + + | HEMOGLOBIN | 8.7 (L) | 13.5 - 17.5 | [facility] | | | | | g/dL | LABORATORY | | | | | | SERVICES, | | | | | | CORE | | + + + + + + | HEMATOCRIT | 24.3 (L) | 41.0 - 53.0 % | [facility] | | | | | | LABORATORY | | | | | | SERVICES, | | | | | | CORE | | + + + + + + | MCV | 81.0 | 80.0 - 96.0 fL | [facility] | | | | | | LABORATORY | | | | | | SERVICES, | | | | | | CORE | | + + + + + + | MCHC | 35.8 | 33.0 - 35.5 | [facility] | | | | | g/dL | LABORATORY | | | | | | SERVICES, | | | | | | CORE | | + + + + + + | RDW SD | 38.9 | 35.1 - 46.3 fL | [facility] | | | | | | LABORATORY | | | | | | SERVICES, | | | | | | CORE | | + + + + + + | PLATELET | 44 (L) | 150 - 400 K/cu | [facility] | | | COUNT | | mm | LABORATORY | | | | | | SERVICES, | | | | | | CORE | | + + + + + + | MPV | 10.5 | 9.7 - 12.3 fL | [facility] | | | | | | LABORATORY | | | | | | SERVICES, | | | | | | CORE | | + + + + + + | NRBC% | 2.0 (H) | 0.0 - 0.3 % | [facility] | | | | | | LABORATORY | | | | | | SERVICES, | | | | | | CORE | | + + + + + + | NRBC# | 0.03 (H) | 0.00 - 0.02 | [facility] [...] | + + + + + | [facility] | [address] | [place] [address] | | | SERVICES, CORE | [address] | | | + + + + + TACROLIMUS, WHOLE BLOOD (09/10/2015 12:05 AM PST) + +-------+ + + + [...] | + + + + + | [facility] | [address] | [place] [address] | | | SERVICES, SPECIAL | [address] | | | | IMM + COAG | | | | + + + + + PHOSPHORUS, PLASMA (09/10/2015 12:05 AM PST) + +-------+ + + + | Component | Value | Ref Range | Performed | Pathologist | | | | | At | Signature | + +-------+ + + + | PHOSPHORUS, | 2.8 | 2.4 - 4.7 mg/dL | [facility] [...] + + + + + | [facility] | [address] | [place] [address] | | | SERVICES, CORE | [address] | | | + + + + + MAGNESIUM, PLASMA (09/10/2015 12:05 AM PST) + +-------+ + + + | Component | Value | Ref Range | Performed | Pathologist | | | | | At | Signature | + +-------+ + + + | MAGNESIUM,P | 2.0 | 1.8 - 2.5 mg/dL | [facility] | | | LASMA | | | [...] | + + + + + | [facility] | [address] | [place] [address] | | | SERVICES, CORE | [address] | | | + + + + + COMPLETE METABOLIC SET (NA,K,CL,CO2,BUN,CREAT,GLUC,CA,AST,ALT,BILI TOTAL,ALK PHOS,ALB,PROT TOTAL) (09/10/2015 12:05 AM PST) + +---------+ + + + | Component | Value | Ref Range | Performed | Pathologist | | | | | At | Signature | + +---------+ + + + | GLUCOSE, | 131 (H) | 60 - 99 mg/dL | [facility] | | | PLASMA | | | LABORATORY | | | (LAB) | | | SERVICES, | | | | | | CORE | | + +---------+ + + + | BUN, PLASMA | 26 (H) | 6 - 20 mg/dL | [facility] | | | (LAB) | | | LABORATORY | | | | | | SERVICES, | | | | | | CORE | | + +---------+ + + + | CREATININE | 1.09 | 0.70 - 1.30 | [facility] | | | PLASMA | | mg/dL | LABORATORY | | | (LAB) | | | SERVICES, | | | | | | CORE | | + +---------+ + + + | EGFR | >60 | >60 mL/min | [facility] | | | - | | | LABORATORY | | | MEXICAN | | | SERVICES, | | | | | | CORE | | + +---------+ + + + | EGFR NON | >60 | >60 mL/min | [facility] | | | -JOANNE | | | LABORATORY | | | RICAN | | | SERVICES, | | | | | | CORE | | + +---------+ + + + | SODIUM, | 146 (H) | 136 - 145 | [facility] | [...] +---------+ + + + | CHLORIDE, | 115 (H) | 97 - 108 mmol/L | [facility] | | | PLASMA | | | LABORATORY | | | (LAB) | | | SERVICES, | | | | | | CORE | | + +---------+ + + + | TOTAL CO2, | 22 | 21 - 32 mmol/L | [facility] | | | PLASMA | | | LABORATORY | | | (LAB) | | | SERVICES, | | | | | | CORE | | + +---------+ + + + | CALCIUM, | 8.2 (L) | 8.6 - 10.2 | [facility] | [...] +---------+ + + + | TOTAL | 6.1 (L) | 6.4 - 8.2 g/dL | [facility] | | | PROTEIN, | | | LABORATORY | | | PLASMA | | | SERVICES, | | | (LAB) | | | CORE | | + +---------+ + + + | ALBUMIN, | 2.8 (L) | 3.5 - 4.7 g/dL | [...] +---------+ + + + | AST(SGOT) | 16 | <=41 U/L | [facility] | | | | | | LABORATORY | | | | | | SERVICES, | | | | | | CORE | | + +---------+ + + + | ALT (SGPT) | 34 | <=60 U/L | [facility] | | | | | | LABORATORY | | | | | | SERVICES, | | | | | | CORE | | + +---------+ + + + | ANION | 12 (H) | 4 - 11 mmol/L | [facility] [...] + + + + + | [facility] | [address] | [place] [address] | | | SERVICES, CORE | [address] | | | + + + + + PRODUCT - PLATELET PHERESIS LEUKOREDUCED (09/09/2015 3:14 PM PST) + + + + + [...] + + + + | PRODUCT | [id number] | | [facility] | | | UNIT [...] + + + + | EXPIRATION | [id number] | | [facility] | | | DATE [...] + + + + | BLOOD | [id number] | | [facility] | | | PRODUCT [...] [facility] DEPARTMENT | [address] | [place] [address] | | | PATHOLOGY | [address] | | | + + + + + PLATELET COUNT, WHOLE BLOOD (09/09/2015 2:15 PM PST) + +--------+ + + + | Component | Value | Ref Range | Performed | Pathologist | | | | | At | Signature | + +--------+ + + + | PLATELET | 33 (L) | 150 - 400 K/cu | [...] | + + + + + | [facility] | [address] | [place] [address] | | | SERVICES, CORE | [address] | | | + + + + + PRODUCT - PLATELET PHERESIS LEUKOREDUCED (09/09/2015 1:45 AM PST) + + + + + [...] + + + + | PRODUCT | [id number] | | [facility] | | | UNIT [...] + + + + | EXPIRATION | [id number] | | [facility] | | | DATE [...] + + + + | BLOOD | [id number] | | [facility] | | | PRODUCT [...] + + + + + | [facility] DEPARTMENT | [address] | [place] [address] | | | PATHOLOGY | [address] | | | + + + + + RBC MORPHOLOGY (09/08/2015 11:46 PM PST) + +---------+ + + + | Component | Value | Ref Range | Performed | Pathologist | | | | | At | Signature | + +---------+ + + + | DOHLE | Present | | [facility] | | | BODIES | | | LABORATORY | | | | | | SERVICES, | | | | | | CORE | | + +---------+ + + + | TOXIC | Present | | [facility] | | | GRANULATION | | | LABORATORY | | | [...] [facility] | [address] | [place] [address] | | | SERVICES, CORE | [address] | | | + + + + + MANUAL DIFFERENTIAL (09/08/2015 11:46 PM PST) + + + + + + | Component | Value | Ref Range | Performed | Pathologist | | | | | At | Signature | + + + + + + | NEUTROPHIL | 72.7 (H) | 50.0 - 70.0 % | [facility] | | | % | | | LABORATORY | | | | | | SERVICES, | | | | | | CORE | | + + + + + + | LYMPHOCYTE | 13.7 (L) | 18.0 - 42.0 % | [facility] | | | % | | | LABORATORY | | | | | | SERVICES, | | | | | | CORE | | + + + + + + | MONOCYTE % | 13.6 (H) | 3.5 - 9.0 % | [...] + + + + | NEUTROPHIL | 0.45 (L) | 1.80 - 7.70 | [facility] | | | # | | K/cu mm | LABORATORY | | | | | | SERVICES, | | | | | | CORE | | + + + + + + | LYMPHOCYTE | 0.08 (L) | 1.00 - 4.80 | [facility] | | | # | | K/cu mm | LABORATORY | | | | | | SERVICES, | | | | | | CORE | | + + + + + + | MONOCYTE # | 0.08 (L) | 0.10 - 0.90 | [facility] | [...] + + + + + | [facility] | [address] | [place] [address] | | | SERVICES, CORE | [address] | | | + + + + + CBC AND AUTO DIFF (09/08/2015 11:46 PM PST) + + + + + + | Component | Value | Ref Range | Performed | Pathologist | | | | | At | Signature | + + + + + + | WHITE CELL | 0.62 (L) | 4.40 - 11.00 | [facility] | | | COUNT | | K/cu mm | LABORATORY | | | | | | SERVICES, | | | | | | CORE | | + + + + + + | RED CELL | 3.13 (L) | 4.50 - 6.00 | [facility] | | | COUNT | | M/cu mm | LABORATORY | | | | | | SERVICES, | | | | | | CORE | | + + + + + + | HEMOGLOBIN | 9.2 (L) | 13.5 - 17.5 | [facility] | | | | | g/dL | LABORATORY | | | | | | SERVICES, | | | | | | CORE | | + + + + + + | HEMATOCRIT | 25.3 (L) | 41.0 - 53.0 % | [facility] | | | | | | LABORATORY | | | | | | SERVICES, | | | | | | CORE | | + + + + + + | MCV | 80.8 | 80.0 - 96.0 fL | [facility] | | | | | | LABORATORY | | | | | | SERVICES, | | | | | | CORE | | + + + + + + | MCHC | 36.4 | 33.0 - 35.5 | [facility] | | | | | g/dL | LABORATORY | | | | | | SERVICES, | | | | | | CORE | | + + + + + + | RDW SD | 36.9 | 35.1 - 46.3 fL | [facility] | | | | | | LABORATORY | | | | | | SERVICES, | | | | | | CORE | | + + + + + + | PLATELET | 32 (L) | 150 - 400 K/cu | [facility] | | | COUNT | | mm | LABORATORY | | | | | | SERVICES, | | | | | | CORE | | + + + + + + | MPV | 10.0 | 9.7 - 12.3 fL | [facility] | | | | | | LABORATORY | | | | | | SERVICES, | | | | | | CORE | | + + + + + + | NRBC% | 3.2 (H) | 0.0 - 0.3 % | [facility] | | | | | | LABORATORY | | | | | | SERVICES, | | | | | | CORE | | + + + + + + | NRBC# | 0.02 | 0.00 - 0.02 | [facility] | [...] | + + + + + | [facility] | [address] | [place] [address] | | | SERVICES, CORE | [address] | | | + + + + + LDH TOTAL, PLASMA (09/08/2015 11:46 PM PST) + +---------+ + + + | Component | Value | Ref Range | Performed | Pathologist | | | | | At | Signature | + +---------+ + + + | LD TOTAL, | 266 (H) | <=250 U/L | [facility] | [...] + | [facility] | [address] | [place] [address] | | | SERVICES, CORE | [address] | | | + + + + + PHOSPHORUS, PLASMA (09/08/2015 11:46 PM PST) + +-------+ + + + | Component | Value | Ref Range | Performed | Pathologist | | | | | At | Signature | + +-------+ + + + | PHOSPHORUS, | 3.2 | 2.4 - 4.7 mg/dL | [facility] [...] | + + + + + | [facility] | [address] | [place] [address] | | | SERVICES, CORE | [address] | | | + + + + + MAGNESIUM, PLASMA (09/08/2015 11:46 PM PST) + +---------+ + + + | Component | Value | Ref Range | Performed | Pathologist | | | | | At | Signature | + +---------+ + + + | MAGNESIUM,P | 1.6 (L) | 1.8 - 2.5 mg/dL | [facility] [...] [facility] | [address] | [place] [address] | | | INDRA SHARIF | [address] | | | + + + + + COMPLETE METABOLIC SET (NA,K,CL,CO2,BUN,CREAT,GLUC,CA,AST,ALT,BILI TOTAL,ALK PHOS,ALB,PROT TOTAL) (09/08/2015 11:46 PM PST) + +---------+ + + + | Component | Value | Ref Range | Performed | Pathologist | | | | | At | Signature | + +---------+ + + + | GLUCOSE, | 127 (H) | 60 - 99 mg/dL | [facility] | | | PLASMA | | | LABORATORY | | | (LAB) | | | SERVICES, | | | | | | CORE | | + +---------+ + + + | BUN, PLASMA | 23 (H) | 6 - 20 mg/dL | [facility] | | | (LAB) | | | LABORATORY | | | | | | SERVICES, | | | | | | CORE | | + +---------+ + + + | CREATININE | 1.16 | 0.70 - 1.30 | [facility] | | | PLASMA | | mg/dL | LABORATORY | | | (LAB) | | | SERVICES, | | | | | | CORE | | + +---------+ + + + | EGFR | >60 | >60 mL/min | [facility] | | | - | | | LABORATORY | | | MEXICAN | | | SERVICES, | | | [...] +---------+ + + + | CHLORIDE, | 114 (H) | 97 - 108 mmol/L | [facility] | | | PLASMA | | | LABORATORY | | | (LAB) | | | SERVICES, | | | | | | CORE | | + +---------+ + + + | TOTAL CO2, | 21 | 21 - 32 mmol/L | [facility] | | | PLASMA | | | LABORATORY | | | (LAB) | | | SERVICES, | | | | | | CORE | | + +---------+ + + + | CALCIUM, | 8.5 (L) | 8.6 - 10.2 | [facility] | [...] +---------+ + + + | ALBUMIN, | 2.9 (L) | 3.5 - 4.7 g/dL | [facility] | | | PLASMA | | | LABORATORY | | | (LAB) | | | SERVICES, | | | | | | CORE | | + +---------+ + + + | ALK PHOS | 61 | 53 - 128 U/L | [facility] [...] + + + | ALT (SGPT) | 18 | <=60 U/L | [facility] | | [...] | + + + + + | [facility] | [address] | [place] [address] | | | SERVICES, INDRA | [address] | | | + + + + + OCCULT BLOOD, FECES, SCREEN (09/08/2015 6:31 PM PST) + + + + + + | Component | Value | Ref Range | Performed | Pathologist | | | | | At | Signature | + + + + + + | OCCULT | Positive (A) | Negative | [facility] | | | BLOOD, | | | LABORATORY | | | FECES, | | | SERVICES, | | | SCREEN | | | CORE | | + + + + + + + + | Specimen | + + | Stool - Rectum | | structure (body | | structure) | + + + + + + + | Performing | Address | City/State/Zipcode | Phone Number | | Organization | | | | + + + + + | [facility] | [address] | [place] [address] | | | SERVICES, INDRA | [address] | | | + + + + + PRODUCT - PLATELET PHERESIS LEUKOREDUCED (09/08/2015 2:48 PM PST) + + + + + [...] + + + + | PRODUCT | [id number] | | [facility] | | | UNIT [...] + + + + | EXPIRATION | [id number] | | [facility] | | | DATE [...] + + + + | BLOOD | [id number] | | [facility] | | | PRODUCT [...] DEPARTMENT OF | [address] | [place] [address] | | | PATHOLOGY | [address] | | | + + + + + PRODUCT - RED CELLS LEUKOREDUCED (09/08/2015 2:47 PM PST) + + + + + [...] + + + + | PRODUCT | [id number] | | [facility] | | | UNIT [...] + + + + | EXPIRATION | [id number] | | [facility] | | | DATE [...] + + + + | BLOOD | [id number] | | [facility] | | | PRODUCT [...] DEPARTMENT OF | [address] | [place] [address] | | | PATHOLOGY | [address] | | | + + + + + TRANSFUSION REACTION (09/08/2015 11:55 AM PST) + + + + + + | Component | Value | Ref Range | Performed | Pathologist | | | | | At | Signature | + + + + + + | TRANSFUSION | Allergic | | [facility] | | | REACTION | reaction-Urticaria | | LABORATORY | | | FINDINGS | | | SERVICES, | | | [...] + + + + + | [facility] | [address] | [place] [address] | | | SERVICES, | [address] | | | | TRANSFUSION MEDICINE | | | | + + + + + PRODUCT - PLATELET PHERESIS LEUKOREDUCED (09/08/2015 4:09 AM PST) + + + + + [...] + + + + | PRODUCT | [id number] | | [facility] | | | UNIT [...] + + + | STATUS OF | Transfused with Reaction | | [facility] | | | UNIT | | | DEPARTMENT | | | | | | OF | | | | | | PATHOLOGY | | + + + + + + | EXPIRATION | [id number] | | [facility] | | | DATE [...] + + + + | BLOOD | [id number] | | [facility] | | | PRODUCT [...] + + + + + | [facility] DEPART[facility] | [address] | [place] [address] | | | PATHOLOGY | [address] | | | + + + + + CBC AND AUTO DIFF (09/08/2015 2:48 AM PST) + + + + + + | Component | Value | Ref Range | Performed | Pathologist | | | | | At | Signature | + + + + + + | WHITE CELL | 0.31 (L) | 4.40 - 11.00 | [facility] | | | COUNT | | K/cu mm | LABORATORY | | | | | | SERVICES, | | | | | | CORE | | + + + + + + | RED CELL | 2.73 (L) | 4.50 - 6.00 | [facility] [...] + + + + | HEMATOCRIT | 22.6 (L) | 41.0 - 53.0 % | [facility] | | | | | | LABORATORY | | | | | | SERVICES, | | | | | | CORE | | + + + + + + | MCV | 82.8 | 80.0 - 96.0 fL | [facility] [...] + + + | RDW SD | 39.7 | 35.1 - 46.3 fL | [facility] | | | | | | LABORATORY | | | | | | SERVICES, | | | | | | CORE | | + + + + + + | PLATELET | 12 (L) | 150 - 400 K/cu | [facility] | | | COUNT | | mm | LABORATORY | | | | | | SERVICES, | | | | | | CORE | | + + + + + + | MPV | 8.9 (L) | 9.7 - 12.3 fL | [facility] | | | | | | LABORATORY | | | | | | SERVICES, | | | | | | CORE | | + + + + + + | NRBC% | 6.5 (H) | 0.0 - 0.3 % | [facility] | | | | | | LABORATORY | | | | | | SERVICES, | | | | | | CORE | | + + + + + + | NRBC# | 0.02 | 0.00 - 0.02 | [facility] | | | | | K/cu mm | LABORATORY | | | | | | SERVICES, | | | | | | CORE | | + + + + + + | NEUTROPHIL | 19.3 (L) | 50.0 - 70.0 % | [facility] | | | % | | | LABORATORY | | | | | | SERVICES, | | | | | | CORE | | + + + + + + | LYMPHOCYTE | 32.3 | 18.0 - 42.0 % | [facility] | | | % | | | LABORATORY | | | | | | SERVICES, | | | | | | CORE | | + + + + + + | MONOCYTE % | 38.7 (H) | 3.5 - 9.0 % | [...] + + + + | IG% | 9.7 (H)Comment: Immature | 0.0 - 0.6 % [...] + + + + | NEUTROPHIL | 0.06 (L) | 1.80 - 7.70 | [facility] | | | # | | K/cu mm | LABORATORY | | | | | | SERVICES, | | | | | | CORE | | + + + + + + | LYMPHOCYTE | 0.10 (L) | 1.00 - 4.80 | [facility] | | | # | | K/cu mm | LABORATORY | | | | | | SERVICES, | | | | | | CORE | | + + + + + + | MONOCYTE # | 0.12 | 0.10 - 0.90 | [facility] | [...] + + + + | IG# | 0.03 | 0.00 - 0.03 | [facility] | [...] + + | [facility] | [address] | [place] [address] | | | SERVICES, CORE | [address] | | | + + + + + TACROLIMUS, WHOLE BLOOD (09/08/2015 2:48 AM PST) + +-------+ + + + | Component | Value | Ref Range | Performed | Pathologist | | | | | At | Signature | + +-------+ + + + | TACROLIMUS | 8.3 | 5.0 - 15.0 | [facility] | [...] | + + + + + | [facility] | [address] | [place] [address] | | | SERVICES, SPECIAL | [address] | | | | IMM + COAG | | | | + + + + + PHOSPHORUS, PLASMA (09/08/2015 2:48 AM PST) + +-------+ + + + [...] [facility] | [address] | [place] [address] | | | INDRA SHARIF | [address] | | | + + + + + MAGNESIUM, PLASMA (09/08/2015 2:48 AM PST) + +---------+ + + + | Component | Value | Ref Range | Performed | Pathologist | | | | | At | Signature | + +---------+ + + + | MAGNESIUM,P | 1.7 (L) | 1.8 - 2.5 [...] + | [facility] | [address] | [place] [address] | | | SERVICES, CORE | [address] | | | + + + + + COMPLETE METABOLIC SET (NA,K,CL,CO2,BUN,CREAT,GLUC,CA,AST,ALT,BILI TOTAL,ALK PHOS,ALB,PROT TOTAL) (09/08/2015 2:48 AM PST) + +---------+ + + + [...] + + + | BUN, PLASMA | 23 (H) | 6 - 20 mg/dL | [facility] | | | (LAB) | | | LABORATORY | | | | | | SERVICES, | | | | | | CORE | | + +---------+ + + + | CREATININE | 1.22 | 0.70 - 1.30 | [facility] | | | PLASMA | | mg/dL | LABORATORY | | | (LAB) | | | SERVICES, | | | | | | CORE | | + +---------+ + + + | EGFR | >60 | >60 mL/min | [facility] | | | - | | | LABORATORY | | | MEXICAN | | | SERVICES, | | | | | | CORE | | + +---------+ + + + | EGFR NON | >60 | >60 mL/min | [facility] | | | -JOANNE | | | LABORATORY | | | RICAN | | | SERVICES, | | | | | | CORE | | + +---------+ + + + | SODIUM, | 144 | 136 - 145 | [facility] | | | PLASMA | | mmol/L | LABORATORY | | | (LAB) | | | SERVICES, | | | | | | CORE | | + +---------+ + + + | POTASSIUM, | 3.5 | 3.4 - 5.0 | [facility] | | | PLASMA | | mmol/L | LABORATORY | | | (LAB) | | | SERVICES, | | | | | | CORE | | + +---------+ + + + | CHLORIDE, | 115 (H) | 97 - 108 mmol/L | [facility] | | | PLASMA | | | LABORATORY | | | (LAB) | | | SERVICES, | | | | | | CORE | | + +---------+ + + + | TOTAL CO2, | 21 | 21 - 32 mmol/L | [facility] | | | PLASMA | | | LABORATORY | | | (LAB) | | | SERVICES, | | | | | | CORE | | + +---------+ + + + | CALCIUM, | 8.4 (L) | 8.6 - 10.2 | [facility] | [...] +---------+ + + + | TOTAL | 5.6 (L) | 6.4 - 8.2 g/dL | [facility] | | | PROTEIN, | | | LABORATORY | | | PLASMA | | | SERVICES, | | | (LAB) | | | CORE | | + +---------+ + + + | ALBUMIN, | 2.4 (L) | 3.5 - 4.7 g/dL | [...] + + + | ALT (SGPT) | 15 | <=60 U/L | [facility] | | | | | | LABORATORY | | | | | | SERVICES, | | | | | | CORE | | + +---------+ + + + | ANION | 12 (H) | 4 - 11 mmol/L | [facility] [...] the MDRD equation recommended by the | [facility] | | National Kidney Disease Education Program. [...] [facility] | [address] | [place] [address] | | | SERVICES, CORE | [address] | | | + + + + + CBC AND AUTO DIFF (09/07/2015 8:49 PM PST) + + + + + + | Component | Value | Ref Range | Performed | Pathologist | | | | | At | Signature | + + + + + + | WHITE CELL | 0.35 (L) | 4.40 - 11.00 | [facility] | | | COUNT | | K/cu mm | LABORATORY | | | | | | SERVICES, | | | | | | CORE | | + + + + + + | RED CELL | 2.03 (L) | 4.50 - 6.00 | [facility] | | | COUNT | | M/cu mm | LABORATORY | | | | | | SERVICES, | | | | | | CORE | | + + + + + + | HEMOGLOBIN | 6.0 (LL) | 13.5 - 17.5 | [facility] | | | | | g/dL | LABORATORY | | | | | | SERVICES, | | | | | | CORE | | + + + + + + | HEMATOCRIT | 17.1 (LL) | 41.0 - 53.0 % | [facility] | | | | | | LABORATORY | | | | | | SERVICES, | | | | | | CORE | | + + + + + + | MCV | 84.2 | 80.0 - 96.0 fL | [facility] | | | | | | LABORATORY | | | | | | SERVICES, | | | | | | CORE | | + + + + + + | MCHC | 35.1 | 33.0 - 35.5 | [facility] | | | | | g/dL | LABORATORY | | | | | | SERVICES, | | | | | | CORE | | + + + + + + | RDW SD | 39.4 | 35.1 - 46.3 fL | [facility] | | | | | | LABORATORY | | | | | | SERVICES, | | | | | | CORE | | + + + + + + | PLATELET | 7 (LL) | 150 - 400 K/cu | [facility] | | | COUNT | | mm | LABORATORY | | | | | | SERVICES, | | | | | | CORE | | + + + + + + | MPV | 10.9 | 9.7 - 12.3 fL | [facility] | | | | | | LABORATORY | | | | | | SERVICES, | | | | | | CORE | | + + + + + + | NRBC% | 5.7 (H) | 0.0 - 0.3 % | [facility] | | | | | | LABORATORY | | | | | | SERVICES, | | | | | | CORE | | + + + + + + | NRBC# | 0.02 | 0.00 - 0.02 | [facility] | | | | | K/cu mm | LABORATORY | | | | | | SERVICES, | | | | | | CORE | | + + + + + + | NEUTROPHIL | Comment: WBC <=500; | 50.0 - 70.0 % | [facility] | | | % | differential not | | LABORATORY | | | | performed. | | SERVICES, | | | | | | CORE | | + + + + + + | LYMPHOCYTE | Comment: WBC <=500; | 18.0 - 42.0 % | [facility] | | | % | differential not | | LABORATORY | | | | performed. | | SERVICES, | | | | | | CORE | | + + + + + + | MONOCYTE % | Comment: WBC <=500; | 3.5 - 9.0 % | [facility] | | | | differential not | | LABORATORY | | | | performed. | | SERVICES, | | | | | | CORE | | + + + + + + | EOS % | Comment: WBC <=500; | 1.0 - 3.0 % | [facility] | | | | differential not | | LABORATORY | | | | performed. | | SERVICES, | | | | | | CORE | | + + + + + + | BASO % | Comment: WBC <=500; | 0.0 - 2.0 % | [facility] | | | | differential not | | LABORATORY | | | | performed. | | SERVICES, | | | | | | CORE | | + + + + + + | IG% | Comment: WBC <=500; | 0.0 - 0.6 % | [facility] | | | | differential not | | LABORATORY | | | | performed. | | SERVICES, | | | | | | CORE | | + + + + + + | NEUTROPHIL | Comment: WBC <=500; | 1.80 - 7.70 | [facility] | | | # | differential not | K/cu mm | LABORATORY | | | | performed. | | SERVICES, | | | | | | CORE | | + + + + + + | LYMPHOCYTE | Comment: WBC <=500; | 1.00 - 4.80 | [facility] | | | # | differential not | K/cu mm | LABORATORY | | | | performed. | | SERVICES, | | | | | | CORE | | + + + + + + | MONOCYTE # | Comment: WBC <=500; | 0.10 - 0.90 | [facility] | | | | differential not | K/cu mm | LABORATORY | | | | performed. | | SERVICES, | | | | | | CORE | | + + + + + + | EOS # | Comment: WBC <=500; | 0.00 - 0.50 | [facility] | | | | differential not | K/cu mm | LABORATORY | | | | performed. | | SERVICES, | | | | | | CORE | | + + + + + + | BASO # | Comment: WBC <=500; | 0.00 - 0.10 | [facility] | | | | differential not | K/cu mm | LABORATORY | | | | performed. | | SERVICES, | | | | | | CORE | | + + + + + + | IG# | Comment: WBC <=500; | 0.00 - 0.03 | [facility] | | | | differential not | K/cu mm | LABORATORY | | | | performed. | | SERVICES, | | | | [...] [facility] | [address] | [place] [address] | | | SERVICES, CORE | [address] | | | + + + + + COAGULOPATHY PANEL (INR,APTT,FIBRINOGEN) (09/07/2015 8:49 PM PST) + + + + + + | Component | Value | Ref Range | Performed | Pathologist | | | | | At | Signature | + + + + + + | INR | 1.34 (H) | 0.90 - 1.20 INR | [facility] | | | | | | LABORATORY | | | | | | SERVICES, | | | | | | CORE | | + + + + + + | APTT | 40.0 (H) | 26.0 - 36.0 | [facility] | | | | | seconds | LABORATORY | | | | | | SERVICES, | | | | | | CORE | | + + + + + + | FIBRINOGEN | 582 (H) | 200 - 450 mg/dL | [facility] | | | LEVEL | | | LABORATORY | | | [...] with mech. valves (2.5 - 3.5) INR APTT | SERVICES, CORE | | Therapeutic Range: (75 - 120) sec | | | Heparin levels of 0.35 - 0.7 U/mL | | + + + + + + + + | Performing | Address | City/State/Zipcode | Phone Number | | Organization | | | | + + + + + | [facility] | [address] | [place] [address] | | | SERVICES, CORE | [address] | | | + + + + + ANTIBODY SCREEN (09/07/2015 8:49 PM PST) + + + + + [...] [facility] | [address] | [place] [address] | | | SERVICES, | [address] | | | | TRANSFUSION MEDICINE | | | | + + + + + ABO & RH TYPE (09/07/2015 8:49 PM PST) + + + + + [...] + + + + + | [facility] | [address] | [place] [address] | | | SERVICES, | [address] | | | | TRANSFUSION MEDICINE | | | | + + + + + PRODUCT - PLATELET PHERESIS LEUKOREDUCED (09/07/2015 8:45 PM PST) + + + + + [...] + + + + | PRODUCT | [id number] | | [facility] | | | UNIT [...] + + + + | EXPIRATION | [id number] | | [facility] | | | DATE [...] + + + + | BLOOD | [id number] | | [facility] | | | PRODUCT [...] + + + + + | [facility] DEPARTMENT OF | [address] | [place] [address] | | | PATHOLOGY | [address] | | | + + + + + PRODUCT - RED CELLS LEUKOREDUCED (09/07/2015 8:45 PM PST) + + + + + [...] + + + + | PRODUCT | [id number] | | [facility] | | | UNIT [...] + + + + | EXPIRATION | [id number] | | [facility] | | | DATE [...] + + + + | BLOOD | [id number] | | [facility] | | | PRODUCT [...] | + + + + + | [facility] | [address] | [place] [address] | | | PATHOLOGY | [address] | | | + + + + + CT CHEST WO CONTRAST (09/07/2015 2:53 PM PST) + + + + + + | Component | Value | Ref Range | Performed | Pathologist | | | | | At | Signature | + + + + + + | CT CHEST WO | EXAM: CT CHEST WO | | | | | CONTRAST | CONTRAST 09/07/15 | | | | | | 14:53:00 HISTORY: | | | | | | Neutropenic fever | | | | | | despite broad-spectrum | | | | | | antibiotics. Increasing | | | | | | cough | | | | | | COMPARISON:Radiograph | | | | | | 09/03/15 TECHNIQUE: | | | | | | Helical scanning was | | | | | | obtained of the chest | | | | | | without | | | | | | intravenouscontrast and | | | | | | reviewed in soft tissue | | | | | | and lung algorithm. | | | | | | Coronal and | | | | | | sagittalimages were also | | | | | | generated and reviewed. | | | | | | FINDINGS: Tunneled left | | | | | | IJ CVC tip is at the | | | | | | cavoatrial junction. The | | | | | | heart is normal insize. | | | | | | The patient is anemic. | | | | | | Trivial pericardial and | | | | | | trace bilateral | | | | | | pleuraleffusions are | | | | | | noted. There are | | | | | | scattered mediastinal | | | | | | but no axillary | | | | | | lymphnodes. Triangular | | | | | | shaped superior anterior | | | | | | mediastinal soft tissue | | | | | | isconsistent with | | | | | | residual thymus. A focal | | | | | | consolidation is noted | | | | | | within the medial right | | | | | | middle lobe andposterior | | | | | | basal right lower lobe | | | | | | with associated tree in | | | | | | bud nodularity. Thereis | | | | | | very mild septal | | | | | | thickening. Minimal tree | | | | | | in bud is also noted | | | | | | within theposterior | | | | | | right upper lobe. The | | | | | | visualized aspects of | | | | | | the upper abdominal | | | | | | organs are unremarkable. | | | | | | There is no suspicious | | | | | | focal osseous | | | | | | abnormality. IMPRESSION: | | | | | | Trace hydrostatic | | | | | | pulmonary edema. Tree in | | | | | | bud nodularity within | | | | | | the posterior basal | | | | | | right lower lobe, | | | | | | medialright middle lobe | | | | | | and posterior right | | | | | | upper lobe most | | | | | | consistent | | | | | | withmultifocal bacterial | | | | | | pneumonia. Attending | | | | | | Radiologists: HORACIO | | | | | | BHAVESH RIGGINSuthor: HORACIO | | | | | | MD GILSON I personally | | | | | | reviewed the images and, | | | | | | if necessary, edited | | | | | | the report. I agreewith | | | | | | the report as now | | | | | | presented. | | | | | | Final/Electronically | | | | | | signed / HORACIO | | | | | | GILSON 09/07/2015 16:08 PM | | | | | | | | | | + + + + + + + + | Specimen | + + | | + + + +---------+ + + | Performing | Address | City/State/Zipcode | Phone Number | | Organization | | | | + +---------+ + + | [facility] DEPARTMENT OF | | | | | RADIOLOGY | | | | + +---------+ + + OSMOLALITY, URINE SPOT (09/07/2015 1:47 PM PST) + +-------+ + + + | Component | Value | Ref Range | Performed | Pathologist | | | | | At | Signature | + +-------+ + + + | OSMOLALITY | 279 | mOsm/Kg H2O | [facility] | | | URINE | | | LABORATORY | | | | | | SERVICES, | | | | | | CORE | | + +-------+ + + + + + | Specimen | + + | Urine - Urine | | (substance) | + + + + + | Narrative | Performed At | + + + | Reference Ranges: Random Urine: | [facility] | | 50-1200 mOm/kg H20 24 Hr., average fluid intake: 300-900 | LABORATORY | | mOm/kg H20 After 12 Hr. fluid restriction: >850 mOm/kg H20 | IN[facility] | + + + + + + + + | Performing | Address | City/State/Zipcode | Phone Number | | Organization | | | | + + + + + | [facility] | [address] | [place] [address] | | | INDRA SHARIF | [address] | | | + + + + + BASIC METABOLIC SET (NA, K, CL, TCO2, BUN, CR, GLU, CA) (09/07/2015 12:10 PM PST) + + + + + + | Component | Value | Ref Range | Performed | Pathologist | | | | | At | Signature | + + + + + + | GLUCOSE, | 131 (H) | 60 - 99 mg/dL | [facility] | | | PLASMA | | | LABORATORY | | | (LAB) | | | SERVICES, | | | | | | CORE | | + + + + + + | BUN, PLASMA | 22 (H) | 6 - 20 mg/dL | [facility] | | | (LAB) | | | LABORATORY | | | | | | SERVICES, | | | | | | CORE | | + + + + + + | CREATININE | 1.35 (H) | 0.70 - 1.30 | [facility] | | | PLASMA | | mg/dL | LABORATORY | | | (LAB) | | | SERVICES, | | | | | | CORE | | + + + + + + | EGFR | >60 | >60 mL/min | [facility] | | | - | | | LABORATORY | | | MEXICAN | | | SERVICES, | | | | | | CORE | | + + + + + + | EGFR NON | >60 | >60 mL/min | [facility] | | | -JOANNE | | | LABORATORY | | | RICAN | | | SERVICES, | | | | | | CORE | | + + + + + + | SODIUM, | 144 | 136 - 145 | [facility] | | | PLASMA | | mmol/L | LABORATORY | | | (LAB) | | | SERVICES, | | | | | | CORE | | + + + + + + | POTASSIUM, | 3.9 | 3.4 - 5.0 | [facility] | | | PLASMA | | mmol/L | LABORATORY | | | (LAB) | | | SERVICES, | | | | | | CORE | | + + + + + + | CHLORIDE, | 116 (H) | 97 - 108 mmol/L | [facility] | | | PLASMA | | | LABORATORY | | | (LAB) | | | SERVICES, | | | | | | CORE | | + + + + + + | TOTAL CO2, | 21 | 21 - 32 mmol/L | [facility] | | | PLASMA | | | LABORATORY | | | (LAB) | | | SERVICES, | | | | | | CORE | | + + + + + + | CALCIUM, | 8.5 (L) | 8.6 - 10.2 | [facility] | | | PLASMA | | mg/dL | LABORATORY | | | (LAB) | | | SERVICES, | | | | | | CORE | | + + + + + + | ANION GAP | 7 | mmol/L | [facility] | | | | | | LABORATORY | | | | | | SERVICES, | | | | | | CORE | | + + + + + + | POTASSIUM | No [...] | + + + + + | [facility] | [address] | [place] [address] | | | SERVICES, CORE | [address] | | | + + + + + TACROLIMUS, WHOLE BLOOD (09/07/2015 8:31 AM PST) + +-------+ + + + | Component | Value | Ref Range | Performed | Pathologist | | | | | At | Signature | + +-------+ + + + | TACROLIMUS | 10.8 | 5.0 - 15.0 | [facility] | [...] | + + + + + | [facility] | [address] | [place] [address] | | | SERVICES, SPECIAL | [address] | | | | IMM + COAG | | | | + + + + + CULTURE, BLOOD BACTI & YEAST [facility] (09/07/2015 6:22 AM PST) + + + + + [...] Specimen | + + | Blood - Red port | | lumen | + + + + + + + | Performing | Address | City/State/Zipcode | Phone Number | | Organization | | | | + + + + + | [facility] | [address] | [place] [address] | | | SERVICES, CORE | [address] | | | + + + + + TRANSFUSION REACTION (09/07/2015 5:55 AM PST) + + + + + + | Component | Value | Ref Range | Performed | Pathologist | | | | | At | Signature | + + + + + + | TRANSFUSION | Febrile, non-hemolytic | | [facility] | | | REACTION | (consider premed | | LABORATORY | | | FINDINGS | Tylenol) | | SERVICES, | | | | [...] | + + + + + | [facility] | [address] | [place] [address] | | | SERVICES, | [address] | | | | TRANSFUSION MEDICINE | | | | + + + + + PRODUCT - PLATELET PHERESIS LEUKOREDUCED (09/07/2015 2:57 AM PST) + + + + + [...] + + + + | PRODUCT | [id number] | | [facility] | | | UNIT [...] + + + | STATUS OF | Transfused with Reaction | | [facility] | | | UNIT | | | DEPARTMENT | | | | | | OF | | | | | | PATHOLOGY | | + + + + + + | EXPIRATION | [id number] | | [facility] | | | DATE [...] + + + + | BLOOD | [id number] | | [facility] | | | PRODUCT [...] | + + + + + | [facility] | [address] | [place] [address] | | | PATHOLOGY | [address] | | | + + + + + CBC AND AUTO DIFF (09/06/2015 11:15 PM PST) + + + + + + | Component | Value | Ref Range | Performed | Pathologist | | | | | At | Signature | + + + + + + | WHITE CELL | 0.19 (L) | 4.40 - 11.00 | [facility] | | | COUNT | | K/cu mm | LABORATORY | | | | | | SERVICES, | | | | | | CORE | | + + + + + + | RED CELL | 2.53 (L) | 4.50 - 6.00 | [facility] | | | COUNT | | M/cu mm | LABORATORY | | | | | | SERVICES, | | | | | | CORE | | + + + + + + | HEMOGLOBIN | 7.5 (L) | 13.5 - 17.5 | [facility] | | | | | g/dL | LABORATORY | | | | | | SERVICES, | | | | | | CORE | | + + + + + + | HEMATOCRIT | 21.2 (L) | 41.0 - 53.0 % | [facility] | | | | | | LABORATORY | | | | | | SERVICES, | | | | | | CORE | | + + + + + + | MCV | 83.8 | 80.0 - 96.0 fL | [facility] | | | | | | LABORATORY | | | | | | SERVICES, | | | | | | CORE | | + + + + + + | MCHC | 35.4 | 33.0 - 35.5 | [facility] | | | | | g/dL | LABORATORY | | | | | | SERVICES, | | | | | | CORE | | + + + + + + | RDW SD | 38.9 | 35.1 - 46.3 fL | [facility] | | | | | | LABORATORY | | | | | | SERVICES, | | | | | | CORE | | + + + + + + | PLATELET | 9 (LL) | 150 - 400 K/cu | [facility] | | | COUNT | | mm | LABORATORY | | | | | | SERVICES, | | | | | | CORE | | + + + + + + | MPV | 11.9 | 9.7 - 12.3 fL | [facility] | | | | | | LABORATORY | | | | | | SERVICES, | | | | | | CORE | | + + + + + + | NRBC% | 10.5 (H) | 0.0 - 0.3 % | [facility] | | | | | | LABORATORY | | | | | | SERVICES, | | | | | | CORE | | + + + + + + | NRBC# | 0.02 | 0.00 - 0.02 | [facility] | | | | | K/cu mm | LABORATORY | | | | | | SERVICES, | | | | | | CORE | | + + + + + + | NEUTROPHIL | Comment: WBC <=500; | 50.0 - 70.0 % | [facility] | | | % | differential not | | LABORATORY | | | | performed. | | SERVICES, | | | | | | CORE | | + + + + + + | LYMPHOCYTE | Comment: WBC <=500; | 18.0 - 42.0 % | [facility] | | | % | differential not | | LABORATORY | | | | performed. | | SERVICES, | | | | | | CORE | | + + + + + + | MONOCYTE % | Comment: WBC <=500; | 3.5 - 9.0 % | [facility] | | | | differential not | | LABORATORY | | | | performed. | | SERVICES, | | | | | | CORE | | + + + + + + | EOS % | Comment: WBC <=500; | 1.0 - 3.0 % | [facility] | | | | differential not | | LABORATORY | | | | performed. | | SERVICES, | | | | | | CORE | | + + + + + + | BASO % | Comment: WBC <=500; | 0.0 - 2.0 % | [facility] | | | | differential not | | LABORATORY | | | | performed. | | SERVICES, | | | | | | CORE | | + + + + + + | IG% | Comment: WBC <=500; | 0.0 - 0.6 % | [facility] | | | | differential not | | LABORATORY | | | | performed. | | SERVICES, | | | | | | CORE | | + + + + + + | NEUTROPHIL | Comment: WBC <=500; | 1.80 - 7.70 | [facility] | | | # | differential not | K/cu mm | LABORATORY | | | | performed. | | SERVICES, | | | | | | CORE | | + + + + + + | LYMPHOCYTE | Comment: WBC <=500; | 1.00 - 4.80 | [facility] | | | # | differential not | K/cu mm | LABORATORY | | | | performed. | | SERVICES, | | | | | | CORE | | + + + + + + | MONOCYTE # | Comment: WBC <=500; | 0.10 - 0.90 | [facility] | | | | differential not | K/cu mm | LABORATORY | | | | performed. | | SERVICES, | | | | | | CORE | | + + + + + + | EOS # | Comment: WBC <=500; | 0.00 - 0.50 | [facility] | | | | differential not | K/cu mm | LABORATORY | | | | performed. | | SERVICES, | | | | | | CORE | | + + + + + + | BASO # | Comment: WBC <=500; | 0.00 - 0.10 | [facility] | | | | differential not | K/cu mm | LABORATORY | | | | performed. | | SERVICES, | | | | | | CORE | | + + + + + + | IG# | Comment: WBC <=500; | 0.00 - 0.03 | [facility] | | | | differential not | K/cu mm | LABORATORY | | | | performed. | | SERVICES, | | | | [...] | + + + + + | [facility] | [address] | [place] [address] | | | SERVICES, CORE | [address] | | | + + + + + PHOSPHORUS, PLASMA (09/06/2015 11:15 PM PST) + +-------+ + + + [...] [facility] | [address] | [place] [address] | | | SERVICES, CORE | [address] | | | + + + + + MAGNESIUM, PLASMA (09/06/2015 11:15 PM PST) + +---------+ + + + | Component | Value | Ref Range | Performed | Pathologist | | | | | At | Signature | + +---------+ + + + | MAGNESIUM,P | 1.7 (L) | 1.8 - 2.5 [...] [facility] | [address] | [place] [address] | | | SERVICES, CORE | [address] | | | + + + + + COMPLETE METABOLIC SET (NA,K,CL,CO2,BUN,CREAT,GLUC,CA,AST,ALT,BILI TOTAL,ALK PHOS,ALB,PROT TOTAL) (09/06/2015 11:15 PM PST) + +---------+ + + + [...] + + + | BUN, PLASMA | 21 (H) | 6 - 20 mg/dL | [facility] | | | (LAB) | | | LABORATORY | | | | | | SERVICES, | | | | | | CORE | | + +---------+ + + + | CREATININE | 1.30 | 0.70 - 1.30 | [facility] | | | PLASMA | | mg/dL | LABORATORY | | | (LAB) | | | SERVICES, | | | | | | CORE | | + +---------+ + + + | EGFR | >60 | >60 mL/min | [facility] | | | - | | | LABORATORY | | | MEXICAN | | | SERVICES, | | | | | | CORE | | + +---------+ + + + | EGFR NON | >60 | >60 mL/min | [facility] | | | -JOANNE | | | LABORATORY | | | RICAN | | | SERVICES, | | | | | | CORE | | + +---------+ + + + | SODIUM, | 144 | 136 - 145 | [facility] | | | PLASMA | | mmol/L | LABORATORY | | | (LAB) | | | SERVICES, | | | | | | CORE | | + +---------+ + + + | POTASSIUM, | 3.8 | 3.4 - 5.0 | [facility] | | | PLASMA | | mmol/L | LABORATORY | | | (LAB) | | | SERVICES, | | | | | | CORE | | + +---------+ + + + | CHLORIDE, | 115 (H) | 97 - 108 mmol/L | [facility] | | | PLASMA | | | LABORATORY | | | (LAB) | | | SERVICES, | | | | | | CORE | | + +---------+ + + + | TOTAL CO2, | 19 (L) | 21 - 32 mmol/L | [facility] | | | PLASMA | | | LABORATORY | | | (LAB) | | | SERVICES, | | | | | | CORE | | + +---------+ + + + | CALCIUM, | 8.7 | 8.6 - 10.2 | [facility] | [...] +---------+ + + + | TOTAL | 5.7 (L) | 6.4 - 8.2 g/dL | [facility] | | | PROTEIN, | | | LABORATORY | | | PLASMA | | | SERVICES, | | | (LAB) | | | CORE | | + +---------+ + + + | ALBUMIN, | 2.7 (L) | 3.5 - 4.7 g/dL | [facility] | | | PLASMA | | | LABORATORY | | | (LAB) | | | SERVICES, | | | | | | CORE | | + +---------+ + + + | ALK PHOS | 70 | 53 - 128 U/L | [facility] | | | | | | LABORATORY | | | | | | SERVICES, | | | | | | CORE | | + +---------+ + + + | AST(SGOT) | 8 | <=41 U/L | [facility] | | | | | | LABORATORY | | | | | | SERVICES, | | | | | | CORE | | + +---------+ + + + | ALT (SGPT) | 17 | <=60 U/L | [facility] | | | | | | LABORATORY | | | | | | SERVICES, | | | | | | CORE | | + +---------+ + + + | ANION | 13 (H) | 4 - 11 mmol/L | [facility] [...] the MDRD equation recommended by the | [facility] | | National Kidney Disease Education Program. [...] + + + + + | [facility] | [address] | [place] [address] | | | SERVICES, CORE | [address] | | | + + + + + VANCOMYCIN, TROUGH (09/06/2015 9:33 PM PST) + + + + + + | Component | Value | Ref Range | Performed | Pathologist | | | | | At | Signature | + + + + + + | VANCOMYCIN, | 26.5 (H) | 5.0 - 15.0 | [facility] | | | TROUGH | | ug/mL | LABORATORY | | | | | | KOLE, | | | | | | CORE | | + + + + + + + + | Specimen | + + | Blood - Blood | | (substance) | + + + + + | Narrative | Performed At | + + + | Please draw a vancomycin trough prior to the 2100 dose on 09/06/15. | [facility] | | Thank you | LABORATORY | | | INDRA [facility]ARIF | + + + + + + + + | Performing | Address | City/State/Zipcode | Phone Number | | Organization | | | | + + + + + | [facility] | [address] | [place] [address] | | | INDRA SHARIF | [address] | | | + + + + + RESPIRATORY PATHOGEN PANEL PCR (09/06/2015 10:54 AM PST) + + + + + + | Component | Value | Ref Range | Performed | Pathologist | | | | | At | Signature | + + + + + + | ADENOVIRUS | Not Detected | Not Detected | [facility] | | | PCR | | | LABORATORY | | | | | | SERVICES, | | | | | | CORE | | + + + + + + | CORONAVIRUS | Not Detected | Not Detected | [facility] | | | 229E PCR | | | LABORATORY | | | | | | SERVICES, | | | | | | CORE | | + + + + + + | CORONAVIRUS | Not Detected | Not Detected | [facility] | | | HKU1 PCR | | | LABORATORY | | | | | | SERVICES, | | | | | | CORE | | + + + + + + | CORONAVIRUS | Not Detected | Not Detected | [facility] | | | NL63 PCR | | | LABORATORY | | | | | | SERVICES, | | | | | | CORE | | + + + + + + | CORONAVIRUS | Not Detected | Not Detected | [facility] | | | OC43 PCR | | | LABORATORY | | | | | | SERVICES, | | | | | | CORE | | + + + + + + | METAPNEUMOV | Not Detected | Not Detected | [facility] | | | IRUS PCR | | | LABORATORY | | | | | | SERVICES, | | | | | | CORE | | + + + + + + | RHINOVIRUS/ | Not Detected | Not Detected | [facility] | | | ENTEROVIRUS | | | LABORATORY | | | PCR | | | SERVICES, | | | | | | CORE | | + + + + + + | INFLUENZA A | Not Detected | Not Detected | [facility] | | | PCR | | | LABORATORY | | | | | | SERVICES, | | | | | | CORE | | + + + + + + | INFLUENZA A | Not Detected | Not Detected | [facility] | | | SUBTYPE H1 | | | LABORATORY | | | PCR | | | SERVICES, | | | | | | CORE | | + + + + + + | INFLUENZA A | Not Detected | Not Detected | [facility] | | | H1-2009 | | | LABORATORY | | | PCR | | | SERVICES, | | | | | | CORE | | + + + + + + | INFLUENZA A | Not Detected | Not Detected | [facility] | | | H3 PCR | | | LABORATORY | | | | | | SERVICES, | | | | | | CORE | | + + + + + + | INFLUENZA B | Not Detected | Not Detected | [facility] | | | PCR | | | LABORATORY | | | | | | SERVICES, | | | | | | CORE | | + + + + + + | PARAINFLUEN | Not Detected | Not Detected | [facility] | | | ZA 1 PCR | | | LABORATORY | | | | | | SERVICES, | | | | | | CORE | | + + + + + + | PARAINFLUEN | Not Detected | Not Detected | [facility] | | | ZA 2 PCR | | | LABORATORY | | | | | | SERVICES, | | | | | | CORE | | + + + + + + | PARAINFLUEN | Not Detected | Not Detected | [facility] | | | ZA 3 PCR | | | LABORATORY | | | | | | SERVICES, | | | | | | CORE | | + + + + + + | PARAINFLUEN | Not Detected | Not Detected | [facility] | | | ZA 4 PCR | | | LABORATORY | | | | | | SERVICES, | | | | | | CORE | | + + + + + + | RSV PCR | Not Detected | Not Detected | [facility] | | | | | | LABORATORY | | | | | | SERVICES, | | | | | | CORE | | + + + + + + | BORDETELLA | Not Detected | Not Detected | [facility] | | | PERTUSSIS | | | LABORATORY | | | PCR | | | SERVICES, | | | | | | CORE | | + + + + + + | CHLAMYDOPHI | Not Detected | Not Detected | [facility] | | | LA | | | LABORATORY | | | PNEUMONIAE | | | SERVICES, | | | PCR | | | CORE | | + + + + + + | MYCOPLASMA | Not Detected | Not Detected | [facility] | | | PNEUMONIAE | | | LABORATORY | | | PCR | | | SERVICES, | | | [...] | + + + + + | [facility] | [address] | [place] [address] | | | SERVICES, CORE | [address] | | | + + + + + C. DIFFICILE TOXIN (09/06/2015 10:29 AM PST) + + + + + + | Component | Value | Ref Range | Performed | Pathologist | | | | | At | Signature | + + + + + + | C.DIFFICILE | Negative | Negative | [facility] | | | TOXIN | | | LABORATORY | | | | | | SERVICES, | | | | | | CORE | | + + + + + + + + | Specimen | + + | Stool - Rectum | | structure (body | | structure) | + + + + + + + | Performing | Address | City/State/Zipcode | Phone Number | | Organization | | | | + + + + + | [facility] | [address] | [place] [address] | | | SERVICES, CORE | [address] | | | + + + + + TACROLIMUS, WHOLE BLOOD (09/06/2015 8:10 AM PST) + +-------+ + + + | Component | Value | Ref Range | Performed | Pathologist | | | | | At | Signature | + +-------+ + + + | TACROLIMUS | 9.4 | 5.0 - 15.0 | [facility] | [...] + + + + + | [facility] | [address] | [place] [address] | | | SERVICES, SPECIAL | [address] | | | | IMM + COAG | | | | + + + + + CAPILLARY BLOOD GLUCOSE (NO CHG), POC (09/06/2015 6:15 AM PST) + +---------+ + + + | Component | Value | Ref Range | Performed | Pathologist | | | | | At | Signature | + +---------+ + + + | BLOOD | 126 (H) | 60 - 99 mg/dL | [facility] - | | | GLUCOSE, | | [...] | [facility] | [address] | [place], [place] | | | [address] | [facility] | [address] | | | TESTS | | | | + + + + + CAPILLARY BLOOD GLUCOSE (NO CHG), POC (09/06/2015 12:13 AM PST) + +---------+ + + + | Component | Value | Ref Range | Performed | Pathologist | | | | | At | Signature | + +---------+ + + + | BLOOD | 122 (H) | 60 - 99 mg/dL | [...] + | [facility] | [address] | [place], [place] | | | [facility] | [address] | [address] | | | TESTS | | | | + + + + + CBC AND AUTO DIFF (09/05/2015 11:57 PM PST) + + + + + + | Component | Value | Ref Range | Performed | Pathologist | | | | | At | Signature | + + + + + + | WHITE CELL | 0.19 (L) | 4.40 - 11.00 | [facility] | | | COUNT | | K/cu mm | LABORATORY | | | | | | SERVICES, | | | | | | CORE | | + + + + + + | RED CELL | 2.65 (L) | 4.50 - 6.00 | [facility] [...] + + + + | HEMATOCRIT | 22.0 (L) | 41.0 - 53.0 % | [facility] | | | | | | LABORATORY | | | | | | SERVICES, | | | | | | CORE | | + + + + + + | MCV | 83.0 | 80.0 - 96.0 fL | [facility] | | | | | | LABORATORY | | | | | | SERVICES, | | | | | | CORE | | + + + + + + | MCHC | 35.5 | 33.0 - 35.5 | [facility] | | | | | g/dL | LABORATORY | | | | | | SERVICES, | | | | | | CORE | | + + + + + + | RDW SD | 38.9 | 35.1 - 46.3 fL | [facility] | | | | | | LABORATORY | | | | | | SERVICES, | | | | | | CORE | | + + + + + + | PLATELET | 13 (L) | 150 - 400 K/cu | [facility] | | | COUNT | | mm | LABORATORY | | | | | | SERVICES, | | | | | | CORE | | + + + + + + | MPV | 10.6 | 9.7 - 12.3 fL | [facility] [...] + + + + | NEUTROPHIL | Comment: WBC <=500; | 50.0 - 70.0 % | [facility] | | | % | differential not | | LABORATORY | | | | performed. | | SERVICES, | | | | | | CORE | | + + + + + + | LYMPHOCYTE | Comment: WBC <=500; | 18.0 - 42.0 % | [facility] | | | % | differential not | | LABORATORY | | | | performed. | | SERVICES, | | | | | | CORE | | + + + + + + | MONOCYTE % | Comment: WBC <=500; | 3.5 - 9.0 % | [facility] | | | | differential not | | LABORATORY | | | | performed. | | SERVICES, | | | | | | CORE | | + + + + + + | EOS % | Comment: WBC <=500; | 1.0 - 3.0 % | [facility] | | | | differential not | | LABORATORY | | | | performed. | | SERVICES, | | | | | | CORE | | + + + + + + | BASO % | Comment: WBC <=500; | 0.0 - 2.0 % | [facility] | | | | differential not | | LABORATORY | | | | performed. | | SERVICES, | | | | | | CORE | | + + + + + + | IG% | Comment: WBC <=500; | 0.0 - 0.6 % | [facility] | | | | differential not | | LABORATORY | | | | performed. | | SERVICES, | | | | | | CORE | | + + + + + + | NEUTROPHIL | Comment: WBC <=500; | 1.80 - 7.70 | [facility] | | | # | differential not | K/cu mm | LABORATORY | | | | performed. | | SERVICES, | | | | | | CORE | | + + + + + + | LYMPHOCYTE | Comment: WBC <=500; | 1.00 - 4.80 | [facility] | | | # | differential not | K/cu mm | LABORATORY | | | | performed. | | SERVICES, | | | | | | CORE | | + + + + + + | MONOCYTE # | Comment: WBC <=500; | 0.10 - 0.90 | [facility] | | | | differential not | K/cu mm | LABORATORY | | | | performed. | | SERVICES, | | | | | | CORE | | + + + + + + | EOS # | Comment: WBC <=500; | 0.00 - 0.50 | [facility] | | | | differential not | K/cu mm | LABORATORY | | | | performed. | | SERVICES, | | | | | | CORE | | + + + + + + | BASO # | Comment: WBC <=500; | 0.00 - 0.10 | [facility] | | | | differential not | K/cu mm | LABORATORY | | | | performed. | | SERVICES, | | | | | | CORE | | + + + + + + | IG# | Comment: WBC <=500; | 0.00 - 0.03 | [facility] | | | | differential not | K/cu mm | LABORATORY | | | | performed. | | SERVICES, | | | | [...] | + + + + + | [facility] | [address] | [place] [address] | | | SERVICES, CORE | [address] | | | + + + + + ASPERGILLUS GALACTOMANNAN ANTIGEN, SERUM (09/05/2015 11:57 PM PST) + + + + + [...] + + + | ASP GAL | 0.11 | <=0.49 Index | [facility] | | [...] INTERPRETATION: Aspergillus galactomannan Antigen by EIA | [facility] | | | LABORATORY | | This [...] | + + + + + | [facility] | [address] | [place] [address] | | | SERVICES, SPECIAL | [address] | | | | IMM + COAG | | | | + + + + + CMV PCR QUANTITATION, PLASMA (09/05/2015 11:57 PM PST) + + + + + + | Component | Value | Ref Range | Performed | Pathologist | | | | | At | Signature | + + + + + + | CMV DNA | Undetected | Undetected, | [facility] | | | QUANTITATIO | | Undetected [...] may not reflect true | [facility] | | biological changes and [...] | | | characteristics determined by the [facility] | | | [...] | | | Act of 1988. The [facility] [facility] | | | Diagnostic Center is a fully licensed and/or accredited clinical | | | laboratory under CLIA, CAP, and the [facility]. | | + + + + + + + + | Performing | Address | City/State/[facility] | Phone Number | | Organization | | | | + + + + + | [facility] | [address] | [place] [address] | | | DIAGNOSTIC | [address] | | | | LABORATORIES | | | | + + + + + INR (09/05/2015 11:57 PM PST) + +-------+ + + + | Component | Value | Ref Range | Performed | Pathologist | | | | | At | Signature | + +-------+ + + + | INR | 1.19 | 0.90 - 1.20 INR | [facility] [...] mech. valves (2.5 - 3.5) INR | KOLE, CORE | + + + + + + + + | Performing | Address | City/State/Zipcode | Phone Number | | Organization | | | | + + + + + | [facility] | [address] | [place] [address] | | | SERVICES, INDRA | [address] | | | + + + + + LDH TOTAL, PLASMA (09/05/2015 11:57 PM PST) + +---------+ + + + | Component | Value | Ref Range | Performed | Pathologist | | | | | At | Signature | + +---------+ + + + | LD TOTAL, | 164 | <=250 U/L | [facility] | | [...] | + + + + + | [facility] | [address] | [place] [address] | | | SERVICES, CORE | [address] | | | + + + + + PHOSPHORUS, PLASMA (09/05/2015 11:57 PM PST) + +-------+ + + + | Component | Value | Ref Range | Performed | Pathologist | | | | | At | Signature | + +-------+ + + + | PHOSPHORUS, | 3.6 | 2.4 - 4.7 mg/dL | [facility] | | | PLASMA | | | [...] | + + + + + | [facility] | [address] | [place] [address] | | | SERVICES, CORE | [address] | | | + + + + + MAGNESIUM, PLASMA (09/05/2015 11:57 PM PST) + +-------+ + + + [...] + + + + + | [facility] | [address] | [place] [address] | | | SERVICES, CORE | [address] | | | + + + + + COMPLETE METABOLIC SET (NA,K,CL,CO2,BUN,CREAT,GLUC,CA,AST,ALT,BILI TOTAL,ALK PHOS,ALB,PROT TOTAL) (09/05/2015 11:57 PM PST) + +---------+ + + + [...] + + + | BUN, PLASMA | 17 | 6 - 20 mg/dL | [facility] | | | (LAB) | | | LABORATORY | | | | | | SERVICES, | | | | | | CORE | | + +---------+ + + + | CREATININE | 1.07 | 0.70 - 1.30 | [facility] | | | PLASMA | | mg/dL | LABORATORY | | | (LAB) | | | SERVICES, | | | | | | CORE | | + +---------+ + + + | EGFR | >60 | >60 mL/min | [facility] | | | - | | | LABORATORY | | | MEXICAN | | | SERVICES, | | | | | | CORE | | + +---------+ + + + | EGFR NON | >60 | >60 mL/min | [facility] | | | -JOANNE | | | LABORATORY | | | RICAN | | | SERVICES, | | | | | | CORE | | + +---------+ + + + | SODIUM, | 144 | 136 - 145 | [facility] | | | PLASMA | | mmol/L | LABORATORY | | | (LAB) | | | SERVICES, | | | | | | CORE | | + +---------+ + + + | POTASSIUM, | 3.6 | 3.4 - 5.0 | [facility] | | | PLASMA | | mmol/L | LABORATORY | | | (LAB) | | | SERVICES, | | | | | | CORE | | + +---------+ + + + | CHLORIDE, | 114 (H) | 97 - 108 mmol/L | [facility] | | | PLASMA | | | LABORATORY | | | (LAB) | | | SERVICES, | | | | | | CORE | | + +---------+ + + + | TOTAL CO2, | 22 | 21 - 32 mmol/L | [facility] | | | PLASMA | | | LABORATORY | | | (LAB) | | | SERVICES, | | | | | | CORE | | + +---------+ + + + | CALCIUM, | 8.3 (L) | 8.6 - 10.2 | [facility] | [...] +---------+ + + + | TOTAL | 5.8 (L) | 6.4 - 8.2 g/dL | [facility] | | | PROTEIN, | | | LABORATORY | | | PLASMA | | | SERVICES, | | | (LAB) | | | CORE | | + +---------+ + + + | ALBUMIN, | 2.8 (L) | 3.5 - 4.7 g/dL | [facility] | | | PLASMA | | | LABORATORY | | | (LAB) | | | SERVICES, | | | | | | CORE | | + +---------+ + + + | ALK PHOS | 69 | 53 - 128 U/L | [facility] | | | | | | LABORATORY | | | | | | SERVICES, | | | | | | CORE | | + +---------+ + + + | AST(SGOT) | 7 | <=41 U/L | [facility] | | | | | | LABORATORY | | | | | | SERVICES, | | | | | | CORE | | + +---------+ + + + | ALT (SGPT) | 21 | <=60 U/L | [facility] | | | | | | LABORATORY | | | | | | SERVICES, | | | | | | CORE | | + +---------+ + + + | ANION | 11 | 4 - 11 mmol/L | [facility] [...] | + + + + + | [facility] | [address] | [place] [address] | | | SERVICES, CORE | [address] | | | + + + + + CAPILLARY BLOOD GLUCOSE (NO CHG), POC (09/05/2015 5:54 PM PST) + +---------+ + + + | Component | Value | Ref Range | Performed | Pathologist | | | | | At | Signature | + +---------+ + + + | BLOOD | 103 (H) | 60 - 99 [...] | [facility] | [address] | [place], [place] | | | [facility] POINT OF CARE | [facility] | [address] | | | TESTS | | | | + + + + + CAPILLARY BLOOD GLUCOSE (NO CHG), POC (09/05/2015 11:55 AM PST) + +---------+ + + + | Component | Value | Ref Range | Performed | Pathologist | | | | | At | Signature | + +---------+ + + + | BLOOD | 127 (H) | 60 - 99 mg/dL | [...] + | [facility] | [address] | [place], [place] | | | [facility] POINT OF CARE | [address] | [address] | | | TESTS | | | | + + + + + CAPILLARY BLOOD GLUCOSE (NO CHG), POC (09/05/2015 6:39 AM PST) + +---------+ + + + | Component | Value | Ref Range | Performed | Pathologist | | | | | At | Signature | + +---------+ + + + | BLOOD | 111 (H) | 60 - 99 [...] + + + | [facility] | [address] | [place], [place] | | | [facility] POINT OF CARE | [address] | [address] | | | TESTS | | | | + + + + + CAPILLARY BLOOD GLUCOSE (NO CHG) POC (09/05/2015 12:08 AM PST) + +---------+ + + + | Component | Value | Ref Range | Performed | Pathologist | | | | | At | Signature | + +---------+ + + + | BLOOD | 125 (H) | 60 - 99 [...] | [facility] | [address] | [place], [place] | | | RUTHIE CARTER OF CARE | [address] | [address] | | | TESTS | | | | + + + + + PRODUCT - PLATELET PHERESIS LEUKOREDUCED (09/04/2015 11:55 PM PST) + + + + + [...] + + + + | PRODUCT | [id number] | | [facility] | | | UNIT [...] + + + + | EXPIRATION | [id number] | | [facility] | | | DATE [...] + + + + | BLOOD | [id number] | | [facility] | | | PRODUCT [...] DEPARTMENT OF | [address] | [place] [address] | | | PATHOLOGY | [address] | | | + + + + + PRODUCT - RED CELLS LEUKOREDUCED (09/04/2015 11:55 PM PST) + + + + + [...] + + + + | PRODUCT | [id number] | | [facility] | | | UNIT [...] + + + + | EXPIRATION | [id number] | | [facility] | | | DATE [...] + + + + | BLOOD | [id number] | | [facility] | | | PRODUCT [...] DEPARTMENT OF | [address] | [place] [address] | | | PATHOLOGY | [address] | | | + + + + + IGG, SERUM (09/04/2015 11:55 PM PST) + +---------+ + + + | Component | Value | Ref Range | Performed | Pathologist | | | | | At | Signature | + +---------+ + + + | IGG SERUM | 526 (L) | 700 - 1600 | [facility] [...] | + + + + + | [facility] | [address] | [place] [address] | | | [facility] | | | | + + + + + CBC AND AUTO DIFF (09/04/2015 11:01 PM PST) + + + + + + | Component | Value | Ref Range | Performed | Pathologist | | | | | At | Signature | + + + + + + | WHITE CELL | 0.12 (L) | 4.40 - 11.00 | [facility] | | | COUNT | | K/cu mm | LABORATORY | | | | | | SERVICES, | | | | | | CORE | | + + + + + + | RED CELL | 2.52 (L) | 4.50 - 6.00 | [facility] [...] + + + + | HEMATOCRIT | 20.8 (L) | 41.0 - 53.0 % | [facility] | | | | | | LABORATORY | | | | | | SERVICES, | | | | | | CORE | | + + + + + + | MCV | 82.5 | 80.0 - 96.0 fL | [facility] | | | | | | LABORATORY | | | | | | SERVICES, | | | | | | CORE | | + + + + + + | MCHC | 35.1 | 33.0 - 35.5 | [facility] | | | | | g/dL | LABORATORY | | | | | | SERVICES, | | | | | | CORE | | + + + + + + | RDW SD | 38.5 | 35.1 - 46.3 fL | [facility] | | | | | | LABORATORY | | | | | | SERVICES, | | | | | | CORE | | + + + + + + | PLATELET | 7 (LL) | 150 - 400 K/cu | [facility] | | | COUNT | | mm | LABORATORY | | | | | | SERVICES, | | | | | | CORE | | + + + + + + | MPV | 10.2 | 9.7 - 12.3 fL | [facility] [...] + + + + | NEUTROPHIL | Comment: WBC <=500; | 50.0 - 70.0 % | [facility] | | | % | differential not | | LABORATORY | | | | performed. | | SERVICES, | | | | | | CORE | | + + + + + + | LYMPHOCYTE | Comment: WBC <=500; | 18.0 - 42.0 % | [facility] | | | % | differential not | | LABORATORY | | | | performed. | | SERVICES, | | | | | | CORE | | + + + + + + | MONOCYTE % | Comment: WBC <=500; | 3.5 - 9.0 % | [facility] | | | | differential not | | LABORATORY | | | | performed. | | SERVICES, | | | | | | CORE | | + + + + + + | EOS % | Comment: WBC <=500; | 1.0 - 3.0 % | [facility] | | | | differential not | | LABORATORY | | | | performed. | | SERVICES, | | | | | | CORE | | + + + + + + | BASO % | Comment: WBC <=500; | 0.0 - 2.0 % | [facility] | | | | differential not | | LABORATORY | | | | performed. | | SERVICES, | | | | | | CORE | | + + + + + + | IG% | Comment: WBC <=500; | 0.0 - 0.6 % | [facility] | | | | differential not | | LABORATORY | | | | performed. | | SERVICES, | | | | | | CORE | | + + + + + + | NEUTROPHIL | Comment: WBC <=500; | 1.80 - 7.70 | [facility] | | | # | differential not | K/cu mm | LABORATORY | | | | performed. | | SERVICES, | | | | | | CORE | | + + + + + + | LYMPHOCYTE | Comment: WBC <=500; | 1.00 - 4.80 | [facility] | | | # | differential not | K/cu mm | LABORATORY | | | | performed. | | SERVICES, | | | | | | CORE | | + + + + + + | MONOCYTE # | Comment: WBC <=500; | 0.10 - 0.90 | [facility] | | | | differential not | K/cu mm | LABORATORY | | | | performed. | | SERVICES, | | | | | | CORE | | + + + + + + | EOS # | Comment: WBC <=500; | 0.00 - 0.50 | [facility] | | | | differential not | K/cu mm | LABORATORY | | | | performed. | | SERVICES, | | | | | | CORE | | + + + + + + | BASO # | Comment: WBC <=500; | 0.00 - 0.10 | [facility] | | | | differential not | K/cu mm | LABORATORY | | | | performed. | | SERVICES, | | | | | | CORE | | + + + + + + | IG# | Comment: WBC <=500; | 0.00 - 0.03 | [facility] | | | | differential not | K/cu mm | LABORATORY | | | | performed. | | SERVICES, | | | | [...] [facility] | [address] | [place] [address] | | | SERVICES, CORE | [address] | | | + + + + + PHOSPHORUS, PLASMA (09/04/2015 11:01 PM PST) + +-------+ + + + [...] + + + + + | [facility] | [address] | [place] [address] | | | SERVICES, CORE | [address] | | | + + + + + MAGNESIUM, PLASMA (09/04/2015 11:01 PM PST) + +---------+ + + + | Component | Value | Ref Range | Performed | Pathologist | | | | | At | Signature | + +---------+ + + + | MAGNESIUM,P | 1.7 (L) | 1.8 - 2.5 mg/dL | [facility] | | | LASMA | | | [...] + + + + + | [facility] | [address] | [place] [address] | | | SERVICES, CORE | [address] | | | + + + + + COMPLETE METABOLIC SET (NA,K,CL,CO2,BUN,CREAT,GLUC,CA,AST,ALT,BILI TOTAL,ALK PHOS,ALB,PROT TOTAL) (09/04/2015 11:01 PM PST) + +---------+ + + + [...] +---------+ + + + | CREATININE | 1.08 | 0.70 - 1.30 | [facility] | | | PLASMA | | mg/dL | LABORATORY | | | (LAB) | | | SERVICES, | | | | | | CORE | | + +---------+ + + + | EGFR | >60 | >60 mL/min | [facility] | | | - | | | LABORATORY | | | MEXICAN | | | SERVICES, | | | | | | CORE | | + +---------+ + + + | EGFR NON | >60 | >60 mL/min | [facility] | | | -JOANNE | | | LABORATORY | | | RICAN | | | SERVICES, | | | | | | CORE | | + +---------+ + + + | SODIUM, | 146 (H) | 136 - 145 | [facility] | [...] +---------+ + + + | CHLORIDE, | 114 (H) | 97 - 108 mmol/L | [facility] | | | PLASMA | | | LABORATORY | | | (LAB) | | | SERVICES, | | | | | | CORE | | + +---------+ + + + | TOTAL CO2, | 25 | 21 - 32 mmol/L | [facility] | | | PLASMA | | | LABORATORY | | | (LAB) | | | SERVICES, | | | | | | CORE | | + +---------+ + + + | CALCIUM, | 7.8 (L) | 8.6 - 10.2 | [facility] | [...] +---------+ + + + | TOTAL | 5.5 (L) | 6.4 - 8.2 g/dL | [facility] | | | PROTEIN, | | | LABORATORY | | | PLASMA | | | SERVICES, | | | (LAB) | | | CORE | | + +---------+ + + + | ALBUMIN, | 2.7 (L) | 3.5 - 4.7 g/dL | [...] + + + | ALT (SGPT) | 23 | <=60 U/L | [facility] | | [...] | + + + + + | [facility] | [address] | [place] [address] | | | SERVICES, CORE | [address] | | | + + + + + CAPILLARY BLOOD GLUCOSE (NO CHG), POC (09/04/2015 6:04 PM PST) + +---------+ + + + | Component | Value | Ref Range | Performed | Pathologist | | | | | At | Signature | + +---------+ + + + | BLOOD | 119 (H) | 60 - 99 [...] | [facility] | [address] | [place], [place] | | | [facility] POINT OF CARE | [address] | [address] | | | TESTS | | | | + + + + + VANCOMYCIN, TROUGH (09/04/2015 4:35 PM PST) + + + + + + | Component | Value | Ref Range | Performed | Pathologist | | | | | At | Signature | + + + + + + | VANCOMYCIN, | 24.3 (H) | 5.0 - 15.0 | [facility] | | | TROUGH | | ug/mL | LABORATORY | | | | | | SERVICES, | | | | | | CORE | | + + + + + + + + | Specimen | + + | Blood - Blood | | (substance) | + + + + + | Narrative | Performed At | + + + | Please draw vanco trough level prior to administration of 1600 dose | [facility] | | on Monday 09/04 | LABORATORY | | | IN[facility] | + + + + + + + + | Performing | Address | City/State/Zipcode | Phone Number | | Organization | | | | + + + + + | [facility] | [address] | [place] [address] | | | INDRA SHARIF | [address] | | | + + + + + CAPILLARY BLOOD GLUCOSE (NO CHG), POC (09/04/2015 12:27 PM PST) + +---------+ + + + | Component | Value | Ref Range | Performed | Pathologist | | | | | At | Signature | + +---------+ + + + | BLOOD | 127 (H) | 60 - 99 mg/dL | [...] | [facility] | [address] | [place], [place] | | | RUTHIE CARTER [facility]STA | [address] | [address] | | | TESTS | | | | + + + + + CAPILLARY BLOOD GLUCOSE (NO CHG), POC (09/04/2015 5:53 AM PST) + +---------+ + + + | Component | Value | Ref Range | Performed | Pathologist | | | | | At | Signature | + +---------+ + + + | BLOOD | 130 (H) | 60 - 99 mg/dL | [facility] | | | GLUCOSE, | | [...] + | [facility] | [address] | [place], [place] | | | [facility] | [address] | [address] | | | TESTS | | | | + + + + + CBC AND AUTO DIFF (09/04/2015 12:14 AM PST) + + + + + + | Component | Value | Ref Range | Performed | Pathologist | | | | | At | Signature | + + + + + + | WHITE CELL | <0.10 (L) | 4.40 - 11.00 | [facility] | | | COUNT | | K/cu mm | LABORATORY | | | | | | SERVICES, | | | | | | CORE | | + + + + + + | RED CELL | 2.62 (L) | 4.50 - 6.00 | [facility] | | | COUNT | | M/cu mm | LABORATORY | | | | | | SERVICES, | | | | | | CORE | | + + + + + + | HEMOGLOBIN | 7.6 (L) | 13.5 - 17.5 | [facility] | | | | | g/dL | LABORATORY | | | | | | SERVICES, | | | | | | CORE | | + + + + + + | HEMATOCRIT | 21.3 (L) | 41.0 - 53.0 % | [facility] | | | | | | LABORATORY | | | | | | SERVICES, | | | | | | CORE | | + + + + + + | MCV | 81.3 | 80.0 - 96.0 fL | [facility] [...] + + + | RDW SD | 36.4 | 35.1 - 46.3 fL | [facility] [...] + + + + | MPV | 10.5 | 9.7 - 12.3 fL | [facility] [...] + + + + | NEUTROPHIL | Comment: WBC <=500; | 50.0 - 70.0 % | [facility] | | | % | differential not | | LABORATORY | | | | performed. | | SERVICES, | | | | | | CORE | | + + + + + + | LYMPHOCYTE | Comment: WBC <=500; | 18.0 - 42.0 % | [facility] | | | % | differential not | | LABORATORY | | | | performed. | | SERVICES, | | | | | | CORE | | + + + + + + | MONOCYTE % | Comment: WBC <=500; | 3.5 - 9.0 % | [facility] | | | | differential not | | LABORATORY | | | | performed. | | SERVICES, | | | | | | CORE | | + + + + + + | EOS % | Comment: WBC <=500; | 1.0 - 3.0 % | [facility] | | | | differential not | | LABORATORY | | | | performed. | | SERVICES, | | | | | | CORE | | + + + + + + | BASO % | Comment: WBC <=500; | 0.0 - 2.0 % | [facility] | | | | differential not | | LABORATORY | | | | performed. | | SERVICES, | | | | | | CORE | | + + + + + + | IG% | Comment: WBC <=500; | 0.0 - 0.6 % | [facility] | | | | differential not | | LABORATORY | | | | performed. | | SERVICES, | | | | | | CORE | | + + + + + + | NEUTROPHIL | Comment: WBC <=500; | 1.80 - 7.70 | [facility] | | | # | differential not | K/cu mm | LABORATORY | | | | performed. | | SERVICES, | | | | | | CORE | | + + + + + + | LYMPHOCYTE | Comment: WBC <=500; | 1.00 - 4.80 | [facility] | | | # | differential not | K/cu mm | LABORATORY | | | | performed. | | SERVICES, | | | | | | CORE | | + + + + + + | MONOCYTE # | Comment: WBC <=500; | 0.10 - 0.90 | [facility] | | | | differential not | K/cu mm | LABORATORY | | | | performed. | | SERVICES, | | | | | | CORE | | + + + + + + | EOS # | Comment: WBC <=500; | 0.00 - 0.50 | [facility] | | | | differential not | K/cu mm | LABORATORY | | | | performed. | | SERVICES, | | | | | | CORE | | + + + + + + | BASO # | Comment: WBC <=500; | 0.00 - 0.10 | [facility] | | | | differential not | K/cu mm | LABORATORY | | | | performed. | | SERVICES, | | | | | | CORE | | + + + + + + | IG# | Comment: WBC <=500; | 0.00 - 0.03 | [facility] | | | | differential not | K/cu mm | LABORATORY | | | | performed. | | SERVICES, | | | | [...] [facility] | [address] | [place] [address] | | | SERVICES, CORE | [address] | | | + + + + + PHOSPHORUS, PLASMA (09/04/2015 12:14 AM PST) + +-------+ + + + [...] + + + + + | [facility] | [address] | [place] [address] | | | SERVICES, CORE | [address] | | | + + + + + MAGNESIUM, PLASMA (09/04/2015 12:14 AM PST) + +---------+ + + + | Component | Value | Ref Range | Performed | Pathologist | | | | | At | Signature | + +---------+ + + + | MAGNESIUM,P | 1.7 (L) | 1.8 - 2.5 [...] | + + + + + | [facility] | [address] | [place] [address] | | | SERVICES, CORE | [address] | | | + + + + + COMPLETE METABOLIC SET (NA,K,CL,CO2,BUN,CREAT,GLUC,CA,AST,ALT,BILI TOTAL,ALK PHOS,ALB,PROT TOTAL) (09/04/2015 12:14 AM PST) + + + + + + | Component | Value | Ref Range | Performed | Pathologist | | | | | At | Signature | + + + + + + | GLUCOSE, | 102 (H) | 60 - 99 mg/dL | [facility] | | | PLASMA | | | LABORATORY | | | (LAB) | | | SERVICES, | | | | | | CORE | | + + + + + + | BUN, PLASMA | 8 | 6 - 20 mg/dL | [facility] | | | (LAB) | | | LABORATORY | | | | | | SERVICES, | | | | | | CORE | | + + + + + + | CREATININE | 0.52 (L) | 0.70 - 1.30 | [facility] | | | PLASMA | | mg/dL | LABORATORY | | | (LAB) | | | SERVICES, | | | | | | CORE | | + + + + + + | EGFR | >60 | >60 mL/min | [facility] | | | - | | | LABORATORY | | | MEXICAN | | | SERVICES, | | | | | | CORE | | + + + + + + | EGFR NON | >60 | >60 mL/min | [facility] | | | -JOANNE | | | LABORATORY | | | RICAN | | | SERVICES, | | | | | | CORE | | + + + + + + | SODIUM, | 142 | 136 - 145 | [facility] | | | PLASMA | | mmol/L | LABORATORY | | | (LAB) | | | SERVICES, | | | | | | CORE | | + + + + + + | POTASSIUM, | 3.7 | 3.4 - 5.0 | [facility] | | | PLASMA | | mmol/L | LABORATORY | | | (LAB) | | | SERVICES, | | | | | | CORE | | + + + + + + | CHLORIDE, | 109 (H) | 97 - 108 mmol/L | [facility] | | | PLASMA | | | LABORATORY | | | (LAB) | | | SERVICES, | | | | | | CORE | | + + + + + + | TOTAL CO2, | 25 | 21 - 32 mmol/L | [facility] | | | PLASMA | | | LABORATORY | | | (LAB) | | | SERVICES, | | | | | | CORE | | + + + + + + | CALCIUM, | 7.5 (L) | 8.6 - 10.2 | [facility] | | | PLASMA | | mg/dL | LABORATORY | | | (LAB) | | | SERVICES, | | | | | | CORE | | + + + + + + | BILIRUBIN | 0.4 | 0.3 - 1.2 mg/dL | [facility] | | | TOTAL | | | LABORATORY | | | | | | SERVICES, | | | | | | CORE | | + + + + + + | TOTAL | 5.5 (L) | 6.4 - 8.2 g/dL | [facility] | | | PROTEIN, | | | LABORATORY | | | PLASMA | | | SERVICES, | | | (LAB) | | | CORE | | + + + + + + | ALBUMIN, | 2.6 (L) | 3.5 - 4.7 g/dL | [facility] | | | PLASMA | | | LABORATORY | | | (LAB) | | | SERVICES, | | | | | | CORE | | + + + + + + | ALK PHOS | 79 | 53 - 128 U/L | [facility] | | | | | | LABORATORY | | | | | | SERVICES, | | | | | | CORE | | + + + + + + | AST(SGOT) | 11 | <=41 U/L | [facility] | | | | | | LABORATORY | | | | | | SERVICES, | | | | | | CORE | | + + + + + + | ALT (SGPT) | 26 | <=60 U/L | [facility] | | | | | | LABORATORY | | | | | | SERVICES, | | | | | | CORE | | + + + + + + | ANION | 11 | 4 - 11 mmol/L | [facility] | | | GAP(ALB | | | LABORATORY | | | CORRECTED) | | | SERVICES, | | | | | | CORE | | + + + + + + | POTASSIUM | No Hemo | | [facility] | | | CMNT | | | LABORATORY | | | | | | SERVICES, | | | | | | CORE | | + + + + + + | BILI T CMNT | No Hemo | | [facility] | | | | | | LABORATORY | | | | | | SERVICES, | | | | | | CORE | | + + + + + + | AST CMNT | No Hemo | | [facility] | | | | | | LABORATORY | | | | | | SERVICES, | | | | | | CORE | | + + + + + + | ANION GAP | [...] | + + + + + | [facility] | [address] | [place] [address] | | | SERVICES, CORE | [address] | | | + + + + + MIRANDA (DIAZ) BY PCR (09/03/2015 6:37 PM PST) + + + + + + | Component | Value | Ref Range | Performed | Pathologist | | | | | At | Signature | + + + + + + | VRE BY PCR | Negative for Van A gene | Negative for | [facility] | | | | | Van A gene | LABORATORY | | | | | | SERVICES, | | | | | | CORE | | + + + + + + + + | Specimen | + + | Swab - Rectum | | structure (body | | structure) | + + + + + + + | Performing | Address | City/State/Zipcode | Phone Number | | Organization | | | | + + + + + | [facility] | [address] | [place] [address] | | | SERVICES, CORE | [address] | | | + + + + + CULTURE, BLOOD BACTI & YEAST [facility] (09/03/2015 11:17 AM PST) + + + + + [...] Specimen | + + | Blood - White port | | lumen | + + + + + + + | Performing | Address | City/State/Zipcode | Phone Number | | Organization | | | | + + + + + | [facility] | [address] | [place] [address] | | | SERVICES, CORE | [address] | | | + + + + + PHOSPHORUS, PLASMA (09/03/2015 10:49 AM PST) + +---------+ + + + | Component | Value | Ref Range | Performed | Pathologist | | | | | At | Signature | + +---------+ + + + | PHOSPHORUS, | 1.8 (L) | 2.4 - 4.7 mg/dL | [...] | + + + + + | [facility] | [address] | [place] [address] | | | SERVICES, CORE | [address] | | | + + + + + MAGNESIUM, PLASMA (09/03/2015 10:49 AM PST) + +-------+ + + + [...] [facility] | [address] | [place] [address] | | | SERVICES, INDRA | [address] | | | + + + + + TRIGLYCERIDES, PLASMA (09/03/2015 10:49 AM PST) + +-------+ + + + | Component | Value | Ref Range | Performed | Pathologist | | | | | At | Signature | + +-------+ + + + | TRIGLYCERID | 108 | <150 mg/dL | [facility] | | [...] Performed At | + + + | Triglyceride Reference Range: Normal: <150 | [facility] | | mg/dL Borderline High: 150-199 mg/dL High: | LABORATORY | | 200-499 mg/dL Very High: >=500 mg/dL | [facility] | + + + + + + + + | Performing | Address | City/State/Zipcode | Phone Number | | Organization | | | | + + + + + | [facility] | [address] | [place] [address] | | | IN[facility]A [facility] | [address] | | | + + + + + C-REACTIVE PROTEIN (09/03/2015 10:49 AM PST) + + + + + + | Component | Value | Ref Range | Performed | Pathologist | | | | | At | Signature | + + + + + + | C-REACTIVE | 103.0 (H) | <10.0 mg/L | [facility] | | | PROTEIN | | | LABORATORY | | | | | | SERVICES, | | | | | | CORE | | + + + + + + + + | Specimen | + + | Blood - Blood | | (substance) | + + + + + | Narrative | Performed At | + + + | New method, new reference range and new reporting units as of | [facility] | | 12/10/2013. | LABORATORY | | | [facility] | + + + + + + + + | Performing | Address | City/State/Zipcode | Phone Number | | Organization | | | | + + + + + | [facility] | [address] | [place] [address] | | | INDRA SHARIF | [address] | | | + + + + + PREALBUMIN, SERUM (09/03/2015 10:49 AM PST) + + + + + + | Component | Value | Ref Range | Performed | Pathologist | | | | | At | Signature | + + + + + + | PREALBUMIN | 10.5 (L) | 17.0 - 42.0 | [facility] - [...] | + + + + + | [facility] - | [address] | [place] [address] | | | [place] | | | | + + + + + CALCIUM, IONIZED, WHOLE BLOOD (09/03/2015 10:49 AM PST) + + + + + + | Component | Value | Ref Range | Performed | Pathologist | | | | | At | Signature | + + + + + + | LIANNE ICA, | 1.12 (L) | 1.14 - 1.32 | [facility] | | | WHOLE BLD | | mmol/L | LABORATORY | | | | | | SERVICES, | | | | | | CORE | | + + + + + + | PH, WHOLE | 7.42 | | [facility] | | | BLOOD | | | LABORATORY | | | | | | SERVICES, | | | | | | CORE | | + + + + + + | ICA, | 1.13 (L) | 1.14 - 1.28 | [facility] | | | CORRECTED | | mmol/L | LABORATORY | | | TO PH 7.4 | | | SERVICES, | | | [...] [facility] | [address] | [place] [address] | | | SERVICES, CORE | [address] | | | + + + + + X-RAY CHEST 2 VIEW (09/03/2015 10:09 AM PST) + + + + + + | Component | Value | Ref Range | Performed | Pathologist | | | | | At | Signature | + + + + + + | CHEST, 2 | EXAM: CHEST 2 VIEWS | | | | | VIEWS [place] | 09/03/15 10:09:00 | | | | | STEREO | HISTORY: AML, 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 There is | | | | | | no pleural effusion or | | | | | | pneumothorax. The lungs | | | | | | are clearwithout | | | | | | consolidation or | | | | | | suspicious nodules. | | | | | | Left-sided permacath has | | | | | | its tipinvolving the | | | | | | lower superior vena | | | | | | cava/cavoatrial | | | | | | junction. Osseous | | | | | | structuresare | | | | | | unremarkable. | | | | | | IMPRESSION: Clear lungs | | | | | | Attending Radiologists: | | | | | | JOANNE MILES, | | | | | | MDAuthor: JOANNE Reece | | | | | | MD GINGER I | | | | | | [...] | | | | | signed / JOANNE Reece | | | | | | GINGER 09/03/2015 | | | | | | 10:49 AM | | | | + + [...] | | | + +---------+ + + VANCOMYCIN, TROUGH (09/03/2015 8:10 AM PST) + +-------+ + + + | Component | Value | Ref Range | Performed | Pathologist | | | | | At | Signature | + +-------+ + + + | VANCOMYCIN, | 9.3 | 5.0 - 15.0 | [facility] | | | TROUGH | | ug/mL | LABORATORY | | | | | | SERVICES, | | | | | | CORE | | + +-------+ + + + + + | Specimen | + + | Blood - Blood | | (substance) | + + + + + | Narrative | Performed At | + + + | Please draw vanco trough level immediately prior to administration | [facility] | | of 0800 dose on Sunday 09/03 | LABORATORY | | | INDRA SHARIF | + + + + + + + + | Performing | Address | City/State/Zipcode | Phone Number | | Organization | | | | + + + + + | [facility] | [address] | [place] [address] | | | INDRA SHARIF | [address] | | | + + + + + PRODUCT - PLATELET PHERESIS LEUKOREDUCED (09/03/2015 1:12 AM PST) + + + + + [...] + + + + | PRODUCT | [id number] | | [facility] | | | UNIT [...] + + + + | EXPIRATION | [id number] | | [facility] | | | DATE [...] + + + + | BLOOD | [id number] | | [facility] | | | PRODUCT [...] | + + + + + | [facility] | [address] | [place] [address] | | | PATHOLOGY | [address] | | | + + + + + CBC AND AUTO DIFF (09/02/2015 11:00 PM PST) + + + + + + | Component | Value | Ref Range | Performed | Pathologist | | | | | At | Signature | + + + + + + | WHITE CELL | <0.10 (L) | 4.40 - 11.00 | [facility] | | | COUNT | | K/cu mm | LABORATORY | | | | | | SERVICES, | | | | | | CORE | | + + + + + + | RED CELL | 2.86 (L) | 4.50 - 6.00 | [facility] | | | COUNT | | M/cu mm | LABORATORY | | | | | | SERVICES, | | | | | | CORE | | + + + + + + | HEMOGLOBIN | 8.2 (L) | 13.5 - 17.5 | [facility] | | | | | g/dL | LABORATORY | | | | | | SERVICES, | | | | | | CORE | | + + + + + + | HEMATOCRIT | 23.1 (L) | 41.0 - 53.0 % | [facility] | | | | | | LABORATORY | | | | | | SERVICES, | | | | | | CORE | | + + + + + + | MCV | 80.8 | 80.0 - 96.0 fL | [facility] | | | | | | LABORATORY | | | | | | SERVICES, | | | | | | CORE | | + + + + + + | MCHC | 35.5 | 33.0 - 35.5 | [facility] | | | | | g/dL | LABORATORY | | | | | | SERVICES, | | | | | | CORE | | + + + + + + | RDW SD | 35.2 | 35.1 - 46.3 fL | [facility] | | | | | | LABORATORY | | | | | | SERVICES, | | | | | | CORE | | + + + + + + | PLATELET | 7 (LL) | 150 - 400 K/cu | [facility] | | | COUNT | | mm | LABORATORY | | | | | | SERVICES, | | | | | | CORE | | + + + + + + | MPV | 12.3 | 9.7 - 12.3 fL | [facility] [...] + + + + | NEUTROPHIL | Comment: WBC <=500; | 50.0 - 70.0 % | [facility] | | | % | differential not | | LABORATORY | | | | performed. | | SERVICES, | | | | | | CORE | | + + + + + + | LYMPHOCYTE | Comment: WBC <=500; | 18.0 - 42.0 % | [facility] | | | % | differential not | | LABORATORY | | | | performed. | | SERVICES, | | | | | | CORE | | + + + + + + | MONOCYTE % | Comment: WBC <=500; | 3.5 - 9.0 % | [facility] | | | | differential not | | LABORATORY | | | | performed. | | SERVICES, | | | | | | CORE | | + + + + + + | EOS % | Comment: WBC <=500; | 1.0 - 3.0 % | [facility] | | | | differential not | | LABORATORY | | | | performed. | | SERVICES, | | | | | | CORE | | + + + + + + | BASO % | Comment: WBC <=500; | 0.0 - 2.0 % | [facility] | | | | differential not | | LABORATORY | | | | performed. | | SERVICES, | | | | | | CORE | | + + + + + + | IG% | Comment: WBC <=500; | 0.0 - 0.6 % | [facility] | | | | differential not | | LABORATORY | | | | performed. | | SERVICES, | | | | | | CORE | | + + + + + + | NEUTROPHIL | Comment: WBC <=500; | 1.80 - 7.70 | [facility] | | | # | differential not | K/cu mm | LABORATORY | | | | performed. | | SERVICES, | | | | | | CORE | | + + + + + + | LYMPHOCYTE | Comment: WBC <=500; | 1.00 - 4.80 | [facility] | | | # | differential not | K/cu mm | LABORATORY | | | | performed. | | SERVICES, | | | | | | CORE | | + + + + + + | MONOCYTE # | Comment: WBC <=500; | 0.10 - 0.90 | [facility] | | | | differential not | K/cu mm | LABORATORY | | | | performed. | | SERVICES, | | | | | | CORE | | + + + + + + | EOS # | Comment: WBC <=500; | 0.00 - 0.50 | [facility] | | | | differential not | K/cu mm | LABORATORY | | | | performed. | | SERVICES, | | | | | | CORE | | + + + + + + | BASO # | Comment: WBC <=500; | 0.00 - 0.10 | [facility] | | | | differential not | K/cu mm | LABORATORY | | | | performed. | | SERVICES, | | | | | | CORE | | + + + + + + | IG# | Comment: WBC <=500; | 0.00 - 0.03 | [facility] | | | | differential not | K/cu mm | LABORATORY | | | | performed. | | SERVICES, | | | | [...] [facility] | [address] | [place] [address] | | | SERVICES, CORE | [address] | | | + + + + + PHOSPHORUS, PLASMA (09/02/2015 11:00 PM PST) + +-------+ + + + | Component | Value | Ref Range | Performed | Pathologist | | | | | At | Signature | + +-------+ + + + | PHOSPHORUS, | 2.6 | 2.4 - 4.7 mg/dL | [facility] [...] + + + + + | [facility] | [address] | [place] [address] | | | SERVICES, CORE | [address] | | | + + + + + MAGNESIUM, PLASMA (09/02/2015 11:00 PM PST) + +---------+ + + + | Component | Value | Ref Range | Performed | Pathologist | | | | | At | Signature | + +---------+ + + + | MAGNESIUM,P | 1.5 (L) | 1.8 - 2.5 [...] | + + + + + | [facility] | [address] | [place] [address] | | | SERVICES, CORE | [address] | | | + + + + + COMPLETE METABOLIC SET (NA,K,CL,CO2,BUN,CREAT,GLUC,CA,AST,ALT,BILI TOTAL,ALK PHOS,ALB,PROT TOTAL) (09/02/2015 11:00 PM PST) + + + + + + | Component | Value | Ref Range | Performed | Pathologist | | | | | At | Signature | + + + + + + | GLUCOSE, | 112 (H) | 60 - 99 mg/dL | [facility] | | | PLASMA | | | LABORATORY | | | (LAB) | | | SERVICES, | | | | | | CORE | | + + + + + + | BUN, PLASMA | 10 | 6 - 20 mg/dL | [facility] | | | (LAB) | | | LABORATORY | | | | | | SERVICES, | | | | | | CORE | | + + + + + + | CREATININE | 0.68 (L) | 0.70 - 1.30 | [facility] | | | PLASMA | | mg/dL | LABORATORY | | | (LAB) | | | SERVICES, | | | | | | CORE | | + + + + + + | EGFR | >60 | >60 mL/min | [facility] | | | - | | | LABORATORY | | | MEXICAN | | | SERVICES, | | | | | | CORE | | + + + + + + | EGFR NON | >60 | >60 mL/min | [facility] | | | -JOANNE | | | LABORATORY | | | RICAN | | | SERVICES, | | | | | | CORE | | + + + + + + | SODIUM, | 137 | 136 - 145 | [facility] | | | PLASMA | | mmol/L | LABORATORY | | | (LAB) | | | SERVICES, | | | | | | CORE | | + + + + + + | POTASSIUM, | 3.7 | 3.4 - 5.0 | [facility] | | | PLASMA | | mmol/L | LABORATORY | | | (LAB) | | | SERVICES, | | | | | | CORE | | + + + + + + | CHLORIDE, | 107 | 97 - 108 mmol/L | [facility] | | | PLASMA | | | LABORATORY | | | (LAB) | | | SERVICES, | | | | | | CORE | | + + + + + + | TOTAL CO2, | 24 | 21 - 32 mmol/L | [facility] | | | PLASMA | | | LABORATORY | | | (LAB) | | | SERVICES, | | | | | | CORE | | + + + + + + | CALCIUM, | 7.5 (L) | 8.6 - 10.2 | [facility] | | | PLASMA | | mg/dL | LABORATORY | | | (LAB) | | | SERVICES, | | | | | | CORE | | + + + + + + | BILIRUBIN | 0.7 | 0.3 - 1.2 mg/dL | [facility] | | | TOTAL | | | LABORATORY | | | | | | SERVICES, | | | | | | CORE | | + + + + + + | TOTAL | 5.8 (L) | 6.4 - 8.2 g/dL | [facility] | | | PROTEIN, | | | LABORATORY | | | PLASMA | | | SERVICES, | | | (LAB) | | | CORE | | + + + + + + | ALBUMIN, | 2.8 (L) | 3.5 - 4.7 g/dL | [facility] | | | PLASMA | | | LABORATORY | | | (LAB) | | | SERVICES, | | | | | | CORE | | + + + + + + | ALK PHOS | 92 | 53 - 128 U/L | [facility] | | | | | | LABORATORY | | | | | | SERVICES, | | | | | | CORE | | + + + + + + | AST(SGOT) | 9 | <=41 U/L | [facility] | | | | | | LABORATORY | | | | | | SERVICES, | | | | | | CORE | | + + + + + + | ALT (SGPT) | 32 | <=60 U/L | [facility] | | | | | | LABORATORY | | | | | | SERVICES, | | | | | | CORE | | + + + + + + | ANION | 9 | 4 - 11 mmol/L | [facility] | | | GAP(ALB | | | LABORATORY | | | CORRECTED) | | | SERVICES, | | | | | | CORE | | + + + + + + | POTASSIUM | No Hemo | | [facility] | | | CMNT | | | LABORATORY | | | | | | SERVICES, | | | | | | CORE | | + + + + + + | BILI T CMNT | No Hemo | | [facility] | | | | | | LABORATORY | | | | | | SERVICES, | | | | | | CORE | | + + + + + + | AST CMNT | No Hemo | | [facility] | | | | | | LABORATORY | | | | | | SERVICES, | | | | | | CORE | | + + + + + + | ANION GAP | 6 | mmol/L | [facility] | | | [...] | + + + + + | [facility] | [address] | [place] [address] | | | SERVICES, CORE | [address] | | | + + + + + TACROLIMUS, WHOLE BLOOD (09/02/2015 8:06 AM PST) + +---------+ + + + | Component | Value | Ref Range | Performed | Pathologist | | | | | At | Signature | + +---------+ + + + | TACROLIMUS | 3.1 (L) | 5.0 - 15.0 | [facility] [...] | + + + + + | [facility] | [address] | [place] [address] | | | SERVICES, SPECIAL | [address] | | | | IMM + COAG | | | | + + + + + CULTURE, BLOOD BACTI & YEAST YESSICA (09/02/2015 4:00 AM PST) + + + + + [...] Specimen | + + | Blood - White port | | lumen | + + + + + + + | Performing | Address | City/State/Zipcode | Phone Number | | Organization | | | | + + + + + | [facility] | [address] | [place] [address] | | | SERVICES, CORE | [address] | | | + + + + + ANTIBODY SCREEN (09/02/2015 12:20 AM PST) + + + + + [...] + + | [facility] | [address] | [place] [address] | | | SERVICES, | [address] | | | | TRANSFUSION MEDICINE | | | | + + + + + ABO & RH TYPE (09/02/2015 12:20 AM PST) + + + + + [...] [facility] | [address] | [place] [address] | | | SERVICES, | [address] | | | | TRANSFUSION MEDICINE | | | | + + + + + PRODUCT - PLATELET PHERESIS LEUKOREDUCED (09/02/2015 12:10 AM PST) + + + + + [...] + + + + | PRODUCT | [id number] | | [facility] | | | UNIT [...] + + + + | EXPIRATION | [id number] | | [facility] | | | DATE [...] + + + + | BLOOD | [id number] | | [facility] | | | PRODUCT [...] + + + + + | [facility] | [address] | [place] [address] | | | PATHOLOGY | [address] | | | + + + + + PRODUCT - RED CELLS LEUKOREDUCED (09/02/2015 12:10 AM PST) + + + + + [...] + + + + | PRODUCT | [id number] | | [facility] | | | UNIT [...] + + + + | EXPIRATION | [id number] | | [facility] | | | DATE [...] + + + + | BLOOD | [id number] | | [facility] | | | PRODUCT [...] | + + + + + | [facility] | [address] | [place] [address] | | | PATHOLOGY | [address] | | | + + + + + CBC AND AUTO DIFF (09/01/2015 11:00 PM PST) + + + + + + | Component | Value | Ref Range | Performed | Pathologist | | | | | At | Signature | + + + + + + | WHITE CELL | <0.10 (L) | 4.40 - 11.00 | [facility] | | | COUNT | | K/cu mm | LABORATORY | | | | | | SERVICES, | | | | | | CORE | | + + + + + + | RED CELL | 2.58 (L) | 4.50 - 6.00 | [facility] | | | COUNT | | M/cu mm | LABORATORY | | | | | | SERVICES, | | | | | | CORE | | + + + + + + | HEMOGLOBIN | 7.4 (L) | 13.5 - 17.5 | [facility] | | | | | g/dL | LABORATORY | | | | | | SERVICES, | | | | | | CORE | | + + + + + + | HEMATOCRIT | 20.7 (L) | 41.0 - 53.0 % | [facility] | | | | | | LABORATORY | | | | | | SERVICES, | | | | | | CORE | | + + + + + + | MCV | 80.2 | 80.0 - 96.0 fL | [facility] [...] + + + | RDW SD | 34.9 (L) | 35.1 - 46.3 fL | [...] + + + + | MPV | 10.1 | 9.7 - 12.3 fL | [facility] [...] + + + + | NEUTROPHIL | Comment: WBC <=500; | 50.0 - 70.0 % | [facility] | | | % | differential not | | LABORATORY | | | | performed. | | SERVICES, | | | | | | CORE | | + + + + + + | LYMPHOCYTE | Comment: WBC <=500; | 18.0 - 42.0 % | [facility] | | | % | differential not | | LABORATORY | | | | performed. | | SERVICES, | | | | | | CORE | | + + + + + + | MONOCYTE % | Comment: WBC <=500; | 3.5 - 9.0 % | [facility] | | | | differential not | | LABORATORY | | | | performed. | | SERVICES, | | | | | | CORE | | + + + + + + | EOS % | Comment: WBC <=500; | 1.0 - 3.0 % | [facility] | | | | differential not | | LABORATORY | | | | performed. | | SERVICES, | | | | | | CORE | | + + + + + + | BASO % | Comment: WBC <=500; | 0.0 - 2.0 % | [facility] | | | | differential not | | LABORATORY | | | | performed. | | SERVICES, | | | | | | CORE | | + + + + + + | IG% | Comment: WBC <=500; | 0.0 - 0.6 % | [facility] | | | | differential not | | LABORATORY | | | | performed. | | SERVICES, | | | | | | CORE | | + + + + + + | NEUTROPHIL | Comment: WBC <=500; | 1.80 - 7.70 | [facility] | | | # | differential not | K/cu mm | LABORATORY | | | | performed. | | SERVICES, | | | | | | CORE | | + + + + + + | LYMPHOCYTE | Comment: WBC <=500; | 1.00 - 4.80 | [facility] | | | # | differential not | K/cu mm | LABORATORY | | | | performed. | | SERVICES, | | | | | | CORE | | + + + + + + | MONOCYTE # | Comment: WBC <=500; | 0.10 - 0.90 | [facility] | | | | differential not | K/cu mm | LABORATORY | | | | performed. | | SERVICES, | | | | | | CORE | | + + + + + + | EOS # | Comment: WBC <=500; | 0.00 - 0.50 | [facility] | | | | differential not | K/cu mm | LABORATORY | | | | performed. | | SERVICES, | | | | | | CORE | | + + + + + + | BASO # | Comment: WBC <=500; | 0.00 - 0.10 | [facility] | | | | differential not | K/cu mm | LABORATORY | | | | performed. | | SERVICES, | | | | | | CORE | | + + + + + + | IG# | Comment: WBC <=500; | 0.00 - 0.03 | [facility] | | | | differential not | K/cu mm | LABORATORY | | | | performed. | | SERVICES, | | | | | | CORE | | + + + + + + + + | Specimen | + + | Blood - Blood | | (substance) | + + + + + + + | Performing | Address | City/State/Zipcode | Phone Number | | Organization | | | | + + + + + | [facility] | [address] | [place] [address] | | | SERVICES, CORE | [address] | | | + + + + + LDH TOTAL, PLASMA (09/01/2015 11:00 PM PST) + +---------+ + + + | Component | Value | Ref Range | Performed | Pathologist | | | | | At | Signature | + +---------+ + + + | LD TOTAL, | 166 | <=250 U/L | [facility] | | [...] | + + + + + | [facility] | [address] | [place] [address] | | | SERVICES, CORE | [address] | | | + + + + + PHOSPHORUS, PLASMA (09/01/2015 11:00 PM PST) + +-------+ + + + [...] [facility] | [address] | [place] [address] | | | SERVICES, CORE | [address] | | | + + + + + MAGNESIUM, PLASMA (09/01/2015 11:00 PM PST) + +---------+ + + + | Component | Value | Ref Range | Performed | Pathologist | | | | | At | Signature | + +---------+ + + + | MAGNESIUM,P | 1.5 (L) | 1.8 - 2.5 [...] [facility] | [address] | [place] [address] | | | SERVICES, CORE | [address] | | | + + + + + COMPLETE METABOLIC SET (NA,K,CL,CO2,BUN,CREAT,GLUC,CA,AST,ALT,BILI TOTAL,ALK PHOS,ALB,PROT TOTAL) (09/01/2015 11:00 PM PST) + + + + + + | Component | Value | Ref Range | Performed | Pathologist | | | | | At | Signature | + + + + + + | GLUCOSE, | 98 | 60 - 99 mg/dL | [facility] | | | PLASMA | | | LABORATORY | | | (LAB) | | | SERVICES, | | | | | | CORE | | + + + + + + | BUN, PLASMA | 11 | 6 - 20 mg/dL | [facility] | | | (LAB) | | | LABORATORY | | | | | | SERVICES, | | | | | | CORE | | + + + + + + | CREATININE | 0.61 (L) | 0.70 - 1.30 | [facility] | | | PLASMA | | mg/dL | LABORATORY | | | (LAB) | | | SERVICES, | | | | | | CORE | | + + + + + + | EGFR | >60 | >60 mL/min | [facility] | | | - | | | LABORATORY | | | MEXICAN | | | SERVICES, | | | | | | CORE | | + + + + + + | EGFR NON | >60 | >60 mL/min | [facility] | | | -JOANNE | | | LABORATORY | | | RICAN | | | SERVICES, | | | | | | CORE | | + + + + + + | SODIUM, | 136 | 136 - 145 | [facility] | | | PLASMA | | mmol/L | LABORATORY | | | (LAB) | | | SERVICES, | | | | | | CORE | | + + + + + + | POTASSIUM, | 3.4 | 3.4 - 5.0 | [facility] | | | PLASMA | | mmol/L | LABORATORY | | | (LAB) | | | SERVICES, | | | | | | CORE | | + + + + + + | CHLORIDE, | 106 | 97 - 108 mmol/L | [facility] | | | PLASMA | | | LABORATORY | | | (LAB) | | | SERVICES, | | | | | | CORE | | + + + + + + | TOTAL CO2, | 25 | 21 - 32 mmol/L | [facility] | | | PLASMA | | | LABORATORY | | | (LAB) | | | SERVICES, | | | | | | CORE | | + + + + + + | CALCIUM, | 7.9 (L) | 8.6 - 10.2 | [facility] | | | PLASMA | | mg/dL | LABORATORY | | | (LAB) | | | SERVICES, | | | | | | CORE | | + + + + + + | BILIRUBIN | 0.5 | 0.3 - 1.2 mg/dL | [facility] | | | TOTAL | | | LABORATORY | | | | | | SERVICES, | | | | | | CORE | | + + + + + + | TOTAL | 5.9 (L) | 6.4 - 8.2 g/dL | [facility] | | | PROTEIN, | | | LABORATORY | | | PLASMA | | | SERVICES, | | | (LAB) | | | CORE | | + + + + + + | ALBUMIN, | 2.9 (L) | 3.5 - 4.7 g/dL | [facility] | | | PLASMA | | | LABORATORY | | | (LAB) | | | SERVICES, | | | | | | CORE | | + + + + + + | ALK PHOS | 65 | 53 - 128 U/L | [facility] | | | | | | LABORATORY | | | | | | SERVICES, | | | | | | CORE | | + + + + + + | AST(SGOT) | 13 | <=41 U/L | [facility] | | | | | | LABORATORY | | | | | | SERVICES, | | | | | | CORE | | + + + + + + | ALT (SGPT) | 33 | <=60 U/L | [facility] | | | | | | LABORATORY | | | | | | SERVICES, | | | | | | CORE | | + + + + + + | ANION | 7 | 4 - 11 mmol/L | [facility] | | | GAP(ALB | | | LABORATORY | | | CORRECTED) | | | SERVICES, | | | | | | CORE | | + + + + + + | POTASSIUM | No Hemo | | [facility] | | | CMNT | | | LABORATORY | | | | | | SERVICES, | | | | | | CORE | | + + + + + + | BILI T CMNT | No Hemo | | [facility] | | | | | | LABORATORY | | | | | | SERVICES, | | | | | | CORE | | + + + + + + | AST CMNT | No Hemo | | [facility] | | | | | | LABORATORY | | | | | | SERVICES, | | | | | | CORE | | + + + + + + | ANION GAP | [...] the MDRD equation recommended by the | [facility] | | National Kidney Disease Education Program. [...] [facility] | [address] | [place] [address] | | | KOLE, INDRA | [address] | | | + + + + + PRODUCT - PLATELET PHERESIS LEUKOREDUCED (09/01/2015 12:31 AM PST) + + + + + [...] + + + + | PRODUCT | [id number] | | [facility] | | | UNIT [...] + + + + | EXPIRATION | [id number] | | [facility] | | | DATE [...] + + + + | BLOOD | [id number] | | [facility] | | | PRODUCT [...] DEPARTMENT OF | [address] | [place] [address] | | | PATHOLOGY | [address] | | | + + + + + PRODUCT - RED CELLS LEUKOREDUCED (09/01/2015 12:31 AM PST) + + + + + [...] + + + + | PRODUCT | [id number] | | [facility] | | | UNIT [...] + + + + | EXPIRATION | [id number] | | [facility] | | | DATE [...] + + + + | BLOOD | [id number] | | [facility] | | | PRODUCT [...] DEPARTMENT OF | [address] | [place] [address] | | | PATHOLOGY | [address] | | | + + + + + CBC AND AUTO DIFF (08/31/2015 11:30 PM PST) + + + + + + | Component | Value | Ref Range | Performed | Pathologist | | | | | At | Signature | + + + + + + | WHITE CELL | 0.11 (L) | 4.40 - 11.00 | [facility] | | | COUNT | | K/cu mm | LABORATORY | | | | | | SERVICES, | | | | | | CORE | | + + + + + + | RED CELL | 2.47 (L) | 4.50 - 6.00 | [facility] [...] + + + + | HEMATOCRIT | 19.8 (L) | 41.0 - 53.0 % | [facility] | | | | | | LABORATORY | | | | | | SERVICES, | | | | | | CORE | | + + + + + + | MCV | 80.2 | 80.0 - 96.0 fL | [facility] | | | | | | LABORATORY | | | | | | SERVICES, | | | | | | CORE | | + + + + + + | MCHC | 35.9 | 33.0 - 35.5 | [facility] | | | | | g/dL | LABORATORY | | | | | | SERVICES, | | | | | | CORE | | + + + + + + | RDW SD | 35.4 | 35.1 - 46.3 fL | [facility] | | | | | | LABORATORY | | | | | | SERVICES, | | | | | | CORE | | + + + + + + | PLATELET | 6 (LL) | 150 - 400 K/cu | [...] + + + + | NRBC% | 18.2 (H) | 0.0 - 0.3 % | [facility] | | | | | | LABORATORY | | | | | | SERVICES, | | | | | | CORE | | + + + + + + | NRBC# | 0.02 | 0.00 - 0.02 | [facility] | | | | | K/cu mm | LABORATORY | | | | | | SERVICES, | | | | | | CORE | | + + + + + + | NEUTROPHIL | Comment: WBC <=500; | 50.0 - 70.0 % | [facility] | | | % | differential not | | LABORATORY | | | | performed. | | SERVICES, | | | | | | CORE | | + + + + + + | LYMPHOCYTE | Comment: WBC <=500; | 18.0 - 42.0 % | [facility] | | | % | differential not | | LABORATORY | | | | performed. | | SERVICES, | | | | | | CORE | | + + + + + + | MONOCYTE % | Comment: WBC <=500; | 3.5 - 9.0 % | [facility] | | | | differential not | | LABORATORY | | | | performed. | | SERVICES, | | | | | | CORE | | + + + + + + | EOS % | Comment: WBC <=500; | 1.0 - 3.0 % | [facility] | | | | differential not | | LABORATORY | | | | performed. | | SERVICES, | | | | | | CORE | | + + + + + + | BASO % | Comment: WBC <=500; | 0.0 - 2.0 % | [facility] | | | | differential not | | LABORATORY | | | | performed. | | SERVICES, | | | | | | CORE | | + + + + + + | IG% | Comment: WBC <=500; | 0.0 - 0.6 % | [facility] | | | | differential not | | LABORATORY | | | | performed. | | SERVICES, | | | | | | CORE | | + + + + + + | NEUTROPHIL | Comment: WBC <=500; | 1.80 - 7.70 | [facility] | | | # | differential not | K/cu mm | LABORATORY | | | | performed. | | SERVICES, | | | | | | CORE | | + + + + + + | LYMPHOCYTE | Comment: WBC <=500; | 1.00 - 4.80 | [facility] | | | # | differential not | K/cu mm | LABORATORY | | | | performed. | | SERVICES, | | | | | | CORE | | + + + + + + | MONOCYTE # | Comment: WBC <=500; | 0.10 - 0.90 | [facility] | | | | differential not | K/cu mm | LABORATORY | | | | performed. | | SERVICES, | | | | | | CORE | | + + + + + + | EOS # | Comment: WBC <=500; | 0.00 - 0.50 | [facility] | | | | differential not | K/cu mm | LABORATORY | | | | performed. | | SERVICES, | | | | | | CORE | | + + + + + + | BASO # | Comment: WBC <=500; | 0.00 - 0.10 | [facility] | | | | differential not | K/cu mm | LABORATORY | | | | performed. | | SERVICES, | | | | | | CORE | | + + + + + + | IG# | Comment: WBC <=500; | 0.00 - 0.03 | [facility] | | | | differential not | K/cu mm | LABORATORY | | | | performed. | | SERVICES, | | | | [...] [facility] | [address] | [place] [address] | | | INDRA SHARIF | [address] | | | + + + + + PHOSPHORUS, PLASMA (08/31/2015 11:30 PM PST) + +-------+ + + + [...] + | [facility] | [address] | [place] [address] | | | SERVICES, CORE | [address] | | | + + + + + MAGNESIUM, PLASMA (08/31/2015 11:30 PM PST) + +-------+ + + + [...] | + + + + + | [facility] | [address] | [place] [address] | | | SERVICES, CORE | [address] | | | + + + + + COMPLETE METABOLIC SET (NA,K,CL,CO2,BUN,CREAT,GLUC,CA,AST,ALT,BILI TOTAL,ALK PHOS,ALB,PROT TOTAL) (08/31/2015 11:30 PM PST) + + + + + + | Component | Value | Ref Range | Performed | Pathologist | | | | | At | Signature | + + + + + + | GLUCOSE, | 104 (H) | 60 - 99 mg/dL | [facility] | | | PLASMA | | | LABORATORY | | | (LAB) | | | SERVICES, | | | | | | CORE | | + + + + + + | BUN, PLASMA | 9 | 6 - 20 mg/dL | [facility] | | | (LAB) | | | LABORATORY | | | | | | SERVICES, | | | | | | CORE | | + + + + + + | CREATININE | 0.54 (L) | 0.70 - 1.30 | [facility] | | | PLASMA | | mg/dL | LABORATORY | | | (LAB) | | | SERVICES, | | | | | | CORE | | + + + + + + | EGFR | >60 | >60 mL/min | [facility] | | | - | | | LABORATORY | | | MEXICAN | | | SERVICES, | | | | | | CORE | | + + + + + + | EGFR NON | >60 | >60 mL/min | [facility] | | | -JOANNE | | | LABORATORY | | | RICAN | | | SERVICES, | | | | | | CORE | | + + + + + + | SODIUM, | 138 | 136 - 145 | [facility] | | | PLASMA | | mmol/L | LABORATORY | | | (LAB) | | | SERVICES, | | | | | | CORE | | + + + + + + | POTASSIUM, | 3.9 | 3.4 - 5.0 | [facility] | | | PLASMA | | mmol/L | LABORATORY | | | (LAB) | | | SERVICES, | | | | | | CORE | | + + + + + + | CHLORIDE, | 109 (H) | 97 - 108 mmol/L | [facility] | | | PLASMA | | | LABORATORY | | | (LAB) | | | SERVICES, | | | | | | CORE | | + + + + + + | TOTAL CO2, | 24 | 21 - 32 mmol/L | [facility] | | | PLASMA | | | LABORATORY | | | (LAB) | | | SERVICES, | | | | | | CORE | | + + + + + + | CALCIUM, | 8.1 (L) | 8.6 - 10.2 | [facility] | | | PLASMA | | mg/dL | LABORATORY | | | (LAB) | | | SERVICES, | | | | | | CORE | | + + + + + + | BILIRUBIN | 0.4 | 0.3 - 1.2 mg/dL | [facility] | | | TOTAL | | | LABORATORY | | | | | | SERVICES, | | | | | | CORE | | + + + + + + | TOTAL | 6.0 (L) | 6.4 - 8.2 g/dL | [facility] | | | PROTEIN, | | | LABORATORY | | | PLASMA | | | SERVICES, | | | (LAB) | | | CORE | | + + + + + + | ALBUMIN, | 3.0 (L) | 3.5 - 4.7 g/dL | [facility] | | | PLASMA | | | LABORATORY | | | (LAB) | | | SERVICES, | | | | | | CORE | | + + + + + + | ALK PHOS | 62 | 53 - 128 U/L | [facility] | | | | | | LABORATORY | | | | | | SERVICES, | | | | | | CORE | | + + + + + + | AST(SGOT) | 11 | <=41 U/L | [facility] | | | | | | LABORATORY | | | | | | SERVICES, | | | | | | CORE | | + + + + + + | ALT (SGPT) | 26 | <=60 U/L | [facility] | | | | | | LABORATORY | | | | | | SERVICES, | | | | | | CORE | | + + + + + + | ANION | 7 | 4 - 11 mmol/L | [facility] | | | GAP(ALB | | | LABORATORY | | | CORRECTED) | | | SERVICES, | | | | | | CORE | | + + + + + + | POTASSIUM | No Hemo | | [facility] | | | CMNT | | | LABORATORY | | | | | | SERVICES, | | | | | | CORE | | + + + + + + | BILI T CMNT | No Hemo | | [facility] | | | | | | LABORATORY | | | | | | SERVICES, | | | | | | CORE | | + + + + + + | AST CMNT | No Hemo | | [facility] | | | | | | LABORATORY | | | | | | SERVICES, | | | | | | CORE | | + + + + + + | ANION GAP | [...] | + + + + + | [facility] | [address] | [place] [address] | | | SERVICES, CORE | [address] | | | + + + + + C. DIFFICILE TOXIN (08/31/2015 3:19 PM PST) + + + + + + | Component | Value | Ref Range | Performed | Pathologist | | | | | At | Signature | + + + + + + | C.DIFFICILE | Negative | Negative | [facility] | | | TOXIN | | | LABORATORY | | | | | | SERVICES, | | | | | | CORE | | + + + + + + + + | Specimen | + + | Stool - Rectum | | structure (body | | structure) | + + + + + + + | Performing | Address | City/State/Zipcode | Phone Number | | Organization | | | | + + + + + | [facility] | [address] | [place] [address] | | | SERVICES, CORE | [address] | | | + + + + + CBC AND AUTO DIFF (08/30/2015 11:08 PM PST) + + + + + + | Component | Value | Ref Range | Performed | Pathologist | | | | | At | Signature | + + + + + + | WHITE CELL | 0.16 (L) | 4.40 - 11.00 | [facility] | | | COUNT | | K/cu mm | LABORATORY | | | | | | SERVICES, | | | | | | CORE | | + + + + + + | RED CELL | 2.67 (L) | 4.50 - 6.00 | [facility] | | | COUNT | | M/cu mm | LABORATORY | | | | | | SERVICES, | | | | | | CORE | | + + + + + + | HEMOGLOBIN | 7.7 (L) | 13.5 - 17.5 | [facility] | | | | | g/dL | LABORATORY | | | | | | SERVICES, | | | | | | CORE | | + + + + + + | HEMATOCRIT | 21.5 (L) | 41.0 - 53.0 % | [facility] | | | | | | LABORATORY | | | | | | SERVICES, | | | | | | CORE | | + + + + + + | MCV | 80.5 | 80.0 - 96.0 fL | [facility] | | | | | | LABORATORY | | | | | | SERVICES, | | | | | | CORE | | + + + + + + | MCHC | 35.8 | 33.0 - 35.5 | [facility] | | | | | g/dL | LABORATORY | | | | | | SERVICES, | | | | | | CORE | | + + + + + + | RDW SD | 35.4 | 35.1 - 46.3 fL | [facility] | | | | | | LABORATORY | | | | | | SERVICES, | | | | | | CORE | | + + + + + + | PLATELET | 15 (L) | 150 - 400 K/cu | [facility] | | | COUNT | | mm | LABORATORY | | | | | | SERVICES, | | | | | | CORE | | + + + + + + | MPV | 13.1 (H) | 9.7 - 12.3 fL | [...] + + + + | NEUTROPHIL | Comment: WBC <=500; | 50.0 - 70.0 % | [facility] | | | % | differential not | | LABORATORY | | | | performed. | | SERVICES, | | | | | | CORE | | + + + + + + | LYMPHOCYTE | Comment: WBC <=500; | 18.0 - 42.0 % | [facility] | | | % | differential not | | LABORATORY | | | | performed. | | SERVICES, | | | | | | CORE | | + + + + + + | MONOCYTE % | Comment: WBC <=500; | 3.5 - 9.0 % | [facility] | | | | differential not | | LABORATORY | | | | performed. | | SERVICES, | | | | | | CORE | | + + + + + + | EOS % | Comment: WBC <=500; | 1.0 - 3.0 % | [facility] | | | | differential not | | LABORATORY | | | | performed. | | SERVICES, | | | | | | CORE | | + + + + + + | BASO % | Comment: WBC <=500; | 0.0 - 2.0 % | [facility] | | | | differential not | | LABORATORY | | | | performed. | | SERVICES, | | | | | | CORE | | + + + + + + | IG% | Comment: WBC <=500; | 0.0 - 0.6 % | [facility] | | | | differential not | | LABORATORY | | | | performed. | | SERVICES, | | | | | | CORE | | + + + + + + | NEUTROPHIL | Comment: WBC <=500; | 1.80 - 7.70 | [facility] | | | # | differential not | K/cu mm | LABORATORY | | | | performed. | | SERVICES, | | | | | | CORE | | + + + + + + | LYMPHOCYTE | Comment: WBC <=500; | 1.00 - 4.80 | [facility] | | | # | differential not | K/cu mm | LABORATORY | | | | performed. | | SERVICES, | | | | | | CORE | | + + + + + + | MONOCYTE # | Comment: WBC <=500; | 0.10 - 0.90 | [facility] | | | | differential not | K/cu mm | LABORATORY | | | | performed. | | SERVICES, | | | | | | CORE | | + + + + + + | EOS # | Comment: WBC <=500; | 0.00 - 0.50 | [facility] | | | | differential not | K/cu mm | LABORATORY | | | | performed. | | SERVICES, | | | | | | CORE | | + + + + + + | BASO # | Comment: WBC <=500; | 0.00 - 0.10 | [facility] | | | | differential not | K/cu mm | LABORATORY | | | | performed. | | SERVICES, | | | | | | CORE | | + + + + + + | IG# | Comment: WBC <=500; | 0.00 - 0.03 | [facility] | | | | differential not | K/cu mm | LABORATORY | | | | performed. | | SERVICES, | | | | [...] + + + + + | [facility] | [address] | [place] [address] | | | SERVICES, CORE | [address] | | | + + + + + PHOSPHORUS, PLASMA (08/30/2015 11:08 PM PST) + +-------+ + + + | Component | Value | Ref Range | Performed | Pathologist | | | | | At | Signature | + +-------+ + + + | PHOSPHORUS, | 2.9 | 2.4 - 4.7 mg/dL | [facility] [...] + + + + + | [facility] | [address] | [place] [address] | | | SERVICES, CORE | [address] | | | + + + + + MAGNESIUM, PLASMA (08/30/2015 11:08 PM PST) + +---------+ + + + | Component | Value | Ref Range | Performed | Pathologist | | | | | At | Signature | + +---------+ + + + | MAGNESIUM,P | 1.4 (L) | 1.8 - 2.5 mg/dL | [facility] | | | CHRISSYMA | | | LABORATORY | | | [...] | + + + + + | [facility] | [address] | [place] [address] | | | SERVICES, CORE | [address] | | | + + + + + COMPLETE METABOLIC SET (NA,K,CL,CO2,BUN,CREAT,GLUC,CA,AST,ALT,BILI TOTAL,ALK PHOS,ALB,PROT TOTAL) (08/30/2015 11:08 PM PST) + + + + + + | Component | Value | Ref Range | Performed | Pathologist | | | | | At | Signature | + + + + + + | GLUCOSE, | 121 (H) | 60 - 99 mg/dL | [facility] | | | PLASMA | | | LABORATORY | | | (LAB) | | | SERVICES, | | | | | | CORE | | + + + + + + | BUN, PLASMA | 7 | 6 - 20 mg/dL | [facility] | | | (LAB) | | | LABORATORY | | | | | | SERVICES, | | | | | | CORE | | + + + + + + | CREATININE | 0.60 (L) | 0.70 - 1.30 | [facility] | | | PLASMA | | mg/dL | LABORATORY | | | (LAB) | | | SERVICES, | | | | | | CORE | | + + + + + + | EGFR | >60 | >60 mL/min | [facility] | | | - | | | LABORATORY | | | MEXICAN | | | SERVICES, | | | | | | CORE | | + + + + + + | EGFR NON | >60 | >60 mL/min | [facility] | | | -JOANNE | | | LABORATORY | | | RICAN | | | SERVICES, | | | | | | CORE | | + + + + + + | SODIUM, | 140 | 136 - 145 | [facility] | | | PLASMA | | mmol/L | LABORATORY | | | (LAB) | | | SERVICES, | | | | | | CORE | | + + + + + + | POTASSIUM, | 3.8 | 3.4 - 5.0 | [facility] | | | PLASMA | | mmol/L | LABORATORY | | | (LAB) | | | SERVICES, | | | | | | CORE | | + + + + + + | CHLORIDE, | 111 (H) | 97 - 108 mmol/L | [facility] | | | PLASMA | | | LABORATORY | | | (LAB) | | | SERVICES, | | | | | | CORE | | + + + + + + | TOTAL CO2, | 22 | 21 - 32 mmol/L | [facility] | | | PLASMA | | | LABORATORY | | | (LAB) | | | SERVICES, | | | | | | CORE | | + + + + + + | CALCIUM, | 8.1 (L) | 8.6 - 10.2 | [facility] | | | PLASMA | | mg/dL | LABORATORY | | | (LAB) | | | SERVICES, | | | | | | CORE | | + + + + + + | BILIRUBIN | 0.4 [...] + + + + + + | ALBUMIN, | 3.2 (L) | 3.5 - 4.7 g/dL | [facility] | | | PLASMA | | | LABORATORY | | | (LAB) | | | SERVICES, | | | | | | CORE | | + + + + + + | ALK PHOS | 67 | 53 - 128 U/L | [facility] | | | | | | LABORATORY | | | | | | SERVICES, | | | | | | CORE | | + + + + + + | AST(SGOT) | 13 | <=41 U/L | [facility] | | | | | | LABORATORY | | | | | | SERVICES, | | | | | | CORE | | + + + + + + | ALT (SGPT) | 28 | <=60 U/L | [facility] | | | | | | LABORATORY | | | | | | SERVICES, | | | | | | CORE | | + + + + + + | ANION | 9 | 4 - 11 mmol/L | [facility] | | | GAP(ALB | | | LABORATORY | | | CORRECTED) | | | SERVICES, | | | | | | CORE | | + + + + + + | POTASSIUM | No Hemo | | [facility] | | | CMNT | | | LABORATORY | | | | | | SERVICES, | | | | | | CORE | | + + + + + + | BILI T CMNT | No Hemo | | [facility] | | | | | | LABORATORY | | | | | | SERVICES, | | | | | | CORE | | + + + + + + | AST CMNT | No Hemo | | [facility] | | | | | | LABORATORY | | | | | | SERVICES, | | | | | | CORE | | + + + + + + | ANION GAP | [...] the MDRD equation recommended by the | [facility] | | National Kidney Disease Education Program. [...] + + | [facility] | [address] | [place] [address] | | | SERVICES, INDRA | [address] | | | + + + + + CULTURE, URINE [facility] (08/30/2015 8:27 PM PST) + + + + + + | Component | Value | Ref Range | Performed | Pathologist | | | | | At | Signature | + + + + + + | URINE | No growth (<1000 cfu/mL) | | [facility] | | | CULTURE | after 24 hours | | LABORATORY | | | [facility] | | | SERVICES, | | | | | | CORE | | + + + + + + + + | Specimen | + + | Urine - Urine | | (substance) | + + + + + + + | Performing | Address | City/State/Zipcode | Phone Number | | Organization | | | | + + + + + | [facility] | [address] | [place] [address] | | | SERVICES, CORE | [address] | | | + + + + + URINE, MICROSCOPIC EXAM (08/30/2015 8:27 PM PST) + +-------+ + + + | Component | Value | Ref Range | Performed | Pathologist | | | | | At | Signature | + +-------+ + + + | RED CELLS | <1 | 0 - 3 /hpf | [facility] | | | | | | LABORATORY | | | | | | SERVICES, | | | | | | CORE | | + +-------+ + + + | WHITE CELLS | 1 | 0 - 5 /hpf | [facility] | | | | | | LABORATORY | | | | | | SERVICES, | | | | | | CORE | | + +-------+ + + + | BACTERIA | None | None /hpf | [facility] | | | | | | LABORATORY | | | | | | SERVICES, | | | | | | CORE | | + +-------+ + + + | YEAST (LAB) | None | None /hpf | [facility] | | | | | | LABORATORY | | | | | | SERVICES, | | | | | | CORE | | + +-------+ + + + | SQUAMOUS | None | None /hpf | [facility] | | | EPITHELIAL | | | LABORATORY | | | | | | SERVICES, | | | | | | CORE | | + +-------+ + + + | MUCOUS | None | None /hpf | [facility] | | | | | | LABORATORY | | | | | | SERVICES, | | | | | | CORE | | + +-------+ + + + | TRICHOMONAS | None | None /hpf | [facility] | | | | | | LABORATORY | | | | | | SERVICES, | | | | | | CORE | | + +-------+ + + + | NON-SQUAMOU | None | None /hpf | [facility] | | | S EPITH | | | LABORATORY | | | | | | SERVICES, | | | | | | CORE | | + +-------+ + + + | HYALINE | 0 | 0 - 2 /lpf | [facility] | | | CASTS | | | LABORATORY | | | | | | SERVICES, | | | | | | CORE | | + +-------+ + + + | GRANULAR | 0 | 0 - 2 /lpf | [facility] | | | CASTS | | | LABORATORY | | | | | | SERVICES, | | | | | | CORE | | + +-------+ + + + | CELLULAR | 0 | <=0 /lpf | [facility] | | | CASTS | | | LABORATORY | | | | | | SERVICES, | | | | | | CORE | | + +-------+ + + + | TRIPLE P04 | None | None /hpf | [facility] | | | CRYSTALS | | | LABORATORY | | | | | | SERVICES, | | | | | | CORE | | + +-------+ + + + | CALCIUM | None | None /hpf | [facility] | | | OXALATE | | | LABORATORY | | | [place] | | | SERVICES, | | | | | | CORE | | + +-------+ + + + | URIC ACID | None | None /hpf | [facility] | | | CRYSTALS | | | LABORATORY | | | | | | SERVICES, | | | | | | CORE | | + +-------+ + + + | AMORPHOUS | None | None /hpf | [facility] | | | CRYSTALS | | | LABORATORY | | | | | | SERVICES, | | | | | | CORE | | + +-------+ + + + + + | Specimen | + + | Urine - Urine | | (substance) | + + + + + + + | Performing | Address | City/State/Zipcode | Phone Number | | Organization | | | | + + + + + | [facility] | [address] | [place] [address] | | | SERVICES, CORE | [address] | | | + + + + + UA, DIPSTICK ONLY (08/30/2015 8:27 PM PST) + + + + + + | Component | Value | Ref Range | Performed | Pathologist | | | | | At | Signature | + + + + + + | COLOR(UR) | Straw | | [facility] | | | | | | LABORATORY | | | | | | SERVICES, | | | | | | CORE | | + + + + + + | APPEARANCE | Clear | | [facility] | | | | | | LABORATORY | | | | | | SERVICES, | | | | | | CORE | | + + + + + + | GLUCOSE(UR) | Negative | Negative, 50.0 | [facility] | | | | | mg/dL | LABORATORY | | | | | | SERVICES, | | | | | | CORE | | + + + + + + | PROTEIN(LAB | Negative | Negative, 30.0 | [facility] | | | ) | | mg/dL | LABORATORY | | | | | | SERVICES, | | | | | | CORE | | + + + + + + | BILIRUBIN | Negative | Negative | [facility] | | | | | | LABORATORY | | | | | | SERVICES, | | | | | | CORE | | + + + + + + | UROBILINOGE | <2.0 | <2.0 mg/dL | [facility] | | | N | | | LABORATORY | | | | | | SERVICES, | | | | | | CORE | | + + + + + + | PH(UR) | 5.0 | 5.0 - 8.0 | [facility] | | | | | | LABORATORY | | | | | | SERVICES, | | | | | | CORE | | + + + + + + | BLOOD | Small (A) | Negative | [facility] | | | | | | LABORATORY | | | | | | SERVICES, | | | | | | CORE | | + + + + + + | KETONES | Negative | Negative mg/dL | [facility] | | | | | | LABORATORY | | | | | | SERVICES, | | | | | | CORE | | + + + + + + | NITRITES | Negative | Negative | [facility] | | | | | | LABORATORY | | | | | | SERVICES, | | | | | | CORE | | + + + + + + | LEUKOCYTE | Negative | Negative | [facility] | | | ESTERASE | | | LABORATORY | | | | | | SERVICES, | | | | | | CORE | | + + + + + + | SPECIFIC | 1.004 (L) | 1.005 - 1.030 | [facility] | | | GRAVITY | | | LABORATORY | | | | | | SERVICES, | | | | | | CORE | | + + + + + + + + | Specimen | + + | Urine - Urine | | (substance) | + + + + + + + | Performing | Address | City/State/Zipcode | Phone Number | | Organization | | | | + + + + + | [facility] | [address] | [place] [address] | | | SERVICES, CORE | [address] | | | + + + + + X-RAY CHEST 2 VIEW (08/30/2015 6:42 PM PST) + + + + + + | Component | Value | Ref Range | Performed | Pathologist | | | | | At | Signature | + + + + + + | CHEST, 2 | EXAM: CHEST 2 VIEWS | | | | | VIEWS [place] | 08/30/15 18:42:00 | | | | | STEREO | HISTORY: 25-year-old | | | | | | male with neutropenic | | | | | | fever. COMPARISON: Chest | | | | | | radiograph 05/27/15. | | | | | | FINDINGS: Left upper | | | | | | extremity PICC has been | | | | | | removed. A left | | | | | | central venous catheter | | | | | | isplaced with tip at | | | | | | cavoatrial junction. | | | | | | Cardiac silhouette | | | | | | size is normal andthe | | | | | | mediastinal contour is | | | | | | within normal limits. | | | | | | The lungs are clear, | | | | | | with nofocal | | | | | | consolidation or | | | | | | pulmonary edema. No | | | | | | pleural effusion or | | | | | | pneumothorax | | | | | | isappreciated. The bones | | | | | | are intact. IMPRESSION: | | | | | | Clear lungs. Attending | | | | | | Radiologists: SON | | | | | | BHAVESH FRAGAuthor: SON | | | | | | MD FLAKITO I personally | | | | | | reviewed the images and, | | | | | | if necessary, edited | | | | | | the report. I agreewith | | | | | | the report as now | | | | | | presented. | | | | | | Final/Electronically | | | | | | signed / SON | | | | | | FLAKITO 08/31/2015 8:45 AM | | | | | | | | | | + + + + + + + + | Specimen | + + | | + + + +---------+ + + | Performing | Address | City/State/Zipcode | Phone Number | | Organization | | | | + +---------+ + + | [facility] DEPARTMENT OF | | | | | RADIOLOGY | | | | + +---------+ + + CULTURE, BLOOD BACTI & YEAST YESSICA (08/30/2015 5:03 PM PST) + + + + + [...] Specimen | + + | Blood - Entire right | | upper arm (body | | structure) | + + + + + + + | Performing | Address | City/State/Zipcode | Phone Number | | Organization | | | | + + + + + | [facility] | [address] | [place] [address] | | | SERVICES, CORE | [address] | | | + + + + + CULTURE, BLOOD BACTI & YEAST [facility] (08/30/2015 4:21 PM PST) + + + + + [...] Specimen | + + | Blood - Central | | venous catheter, | | device (physical | | object) | + + + + + + + | Performing | Address | City/State/Zipcode | Phone Number | | Organization | | | | + + + + + | [facility] | [address] | [place] [address] | | | SERVICES, CORE | [address] | | | + + + + + CULTURE, BLOOD BACTI & YEAST YESSICA (08/30/2015 4:21 PM PST) + + + + + [...] Specimen | + + | Blood - Central | | venous catheter, | | device (physical | | object) | + + + + + + + | Performing | Address | City/State/Zipcode | Phone Number | | Organization | | | | + + + + + | [facility] | [address] | [place] [address] | | | SERVICES, CORE | [address] | | | + + + + + CULTURE, BLOOD BACTI & YEAST [facility] (08/30/2015 4:21 PM PST) + + + + + [...] Specimen | + + | Blood - Central | | venous catheter, | | device (physical | | object) | + + + + + + + | Performing | Address | City/State/Zipcode | Phone Number | | Organization | | | | + + + + + | [facility] | [address] | [place] [address] | | | SERVICES, CORE | [address] | | | + + + + + TACROLIMUS, WHOLE BLOOD (08/30/2015 8:16 AM PST) + +---------+ + + + | Component | Value | Ref Range | Performed | Pathologist | | | | | At | Signature | + +---------+ + + + | TACROLIMUS | 2.5 (L) | 5.0 - 15.0 | [facility] [...] | + + + + + | [facility] | [address] | [place] [address] | | | SERVICES, SPECIAL | [address] | | | | IMM + COAG | | | | + + + + + PRODUCT - PLATELET PHERESIS LEUKOREDUCED (08/30/2015 1:02 AM PST) + + + + + [...] + + + + | PRODUCT | [id number] | | [facility] | | | UNIT [...] + + + + | EXPIRATION | [id number] | | [facility] | | | DATE [...] + + + + | BLOOD | [id number] | | [facility] | | | PRODUCT [...] + + + + + | [facility] DEPARTMENT | [address] | [place] [address] | | | PATHOLOGY | [address] | | | + + + + + CBC AND AUTO DIFF (08/29/2015 11:00 PM PST) + + + + + + | Component | Value | Ref Range | Performed | Pathologist | | | | | At | Signature | + + + + + + | WHITE CELL | 0.20 (L) | 4.40 - 11.00 | [facility] | | | COUNT | | K/cu mm | LABORATORY | | | | | | SERVICES, | | | | | | CORE | | + + + + + + | RED CELL | 2.59 (L) | 4.50 - 6.00 | [facility] | | | COUNT | | M/cu mm | LABORATORY | | | | | | SERVICES, | | | | | | CORE | | + + + + + + | HEMOGLOBIN | 7.6 (L) | 13.5 - 17.5 | [facility] | | | | | g/dL | LABORATORY | | | | | | SERVICES, | | | | | | CORE | | + + + + + + | HEMATOCRIT | 21.1 (L) | 41.0 - 53.0 % | [facility] | | | | | | LABORATORY | | | | | | SERVICES, | | | | | | CORE | | + + + + + + | MCV | 81.5 | 80.0 - 96.0 fL | [facility] [...] + + + | RDW SD | 36.2 | 35.1 - 46.3 fL | [facility] | | | | | | LABORATORY | | | | | | SERVICES, | | | | | | CORE | | + + + + + + | PLATELET | 8 (LL) | 150 - 400 K/cu | [facility] | | | COUNT | | mm | LABORATORY | | | | | | SERVICES, | | | | | | CORE | | + + + + + + | MPV | 11.9 | 9.7 - 12.3 fL | [facility] [...] + + + + | NEUTROPHIL | Comment: WBC <=500; | 50.0 - 70.0 % | [facility] | | | % | differential not | | LABORATORY | | | | performed. | | SERVICES, | | | | | | CORE | | + + + + + + | LYMPHOCYTE | Comment: WBC <=500; | 18.0 - 42.0 % | [facility] | | | % | differential not | | LABORATORY | | | | performed. | | SERVICES, | | | | | | CORE | | + + + + + + | MONOCYTE % | Comment: WBC <=500; | 3.5 - 9.0 % | [facility] | | | | differential not | | LABORATORY | | | | performed. | | SERVICES, | | | | | | CORE | | + + + + + + | EOS % | Comment: WBC <=500; | 1.0 - 3.0 % | [facility] | | | | differential not | | LABORATORY | | | | performed. | | SERVICES, | | | | | | CORE | | + + + + + + | BASO % | Comment: WBC <=500; | 0.0 - 2.0 % | [facility] | | | | differential not | | LABORATORY | | | | performed. | | SERVICES, | | | | | | CORE | | + + + + + + | IG% | Comment: WBC <=500; | 0.0 - 0.6 % | [facility] | | | | differential not | | LABORATORY | | | | performed. | | SERVICES, | | | | | | CORE | | + + + + + + | NEUTROPHIL | Comment: WBC <=500; | 1.80 - 7.70 | [facility] | | | # | differential not | K/cu mm | LABORATORY | | | | performed. | | SERVICES, | | | | | | CORE | | + + + + + + | LYMPHOCYTE | Comment: WBC <=500; | 1.00 - 4.80 | [facility] | | | # | differential not | K/cu mm | LABORATORY | | | | performed. | | SERVICES, | | | | | | CORE | | + + + + + + | MONOCYTE # | Comment: WBC <=500; | 0.10 - 0.90 | [facility] | | | | differential not | K/cu mm | LABORATORY | | | | performed. | | SERVICES, | | | | | | CORE | | + + + + + + | EOS # | Comment: WBC <=500; | 0.00 - 0.50 | [facility] | | | | differential not | K/cu mm | LABORATORY | | | | performed. | | SERVICES, | | | | | | CORE | | + + + + + + | BASO # | Comment: WBC <=500; | 0.00 - 0.10 | [facility] | | | | differential not | K/cu mm | LABORATORY | | | | performed. | | SERVICES, | | | | | | CORE | | + + + + + + | IG# | Comment: WBC <=500; | 0.00 - 0.03 | [facility] | | | | differential not | K/cu mm | LABORATORY | | | | performed. | | SERVICES, | | | | [...] + | [facility] | [address] | [place] [address] | | | SERVICES, CORE | [address] | | | + + + + + ASPERGILLUS GALACTOMANNAN ANTIGEN, SERUM (08/29/2015 11:00 PM PST) + + + + + [...] + + + | ASP GAL | 0.06 | <=0.49 Index | [facility] | | [...] | + + + + + | [facility] | [address] | [place] [address] | | | SERVICES, SPECIAL | [address] | | | | IMM + COAG | | | | + + + + + CMV PCR QUANTITATION, PLASMA (08/29/2015 11:00 PM PST) + + + + + + | Component | Value | Ref Range | Performed | Pathologist | | | | | At | Signature | + + + + + + | CMV DNA | Undetected | Undetected, | [facility] | | | QUANTITATIO | | Undetected [...] may not reflect true | [facility] | | biological changes and [...] | | | characteristics determined by the [facility] | | | [facility]. It has not been cleared or approved by | | | the Food and Drug Administration. FDA approval is not required for | | | clinical use of this test, and therefore validation was done as | | | required under the requirements of the Clinical Laboratory Improvement | | | Act of 1988. The [facility] | | | Diagnostic Center is a fully licensed and/or accredited clinical | | | laboratory under CLIA, CAP, and the [facility]. | | + + + + + + + + | Performing | Address | City/State/Zipcode | Phone Number | | Organization | | | | + + + + + | [facility] | [address] | [place] [address] | | | DIAGNOSTIC | [address] | | | | LABORATORIES | | | | + + + + + INR (08/29/2015 11:00 PM PST) + + + + + + | Component | Value | Ref Range | Performed | Pathologist | | | | | At | Signature | + + + + + + | INR | 1.23 (H) | 0.90 - 1.20 INR | [facility] [...] + | [facility] | [address] | [place] [address] | | | SERVICES, CORE | [address] | | | + + + + + LDH TOTAL, PLASMA (08/29/2015 11:00 PM PST) + +---------+ + + + | Component | Value | Ref Range | Performed | Pathologist | | | | | At | Signature | + +---------+ + + + | LD TOTAL, | 146 | <=250 U/L | [facility] | | [...] [facility] | [address] | [place] [address] | | | SERVICES, CORE | [address] | | | + + + + + PHOSPHORUS, PLASMA (08/29/2015 11:00 PM PST) + +-------+ + + + | Component | Value | Ref Range | Performed | Pathologist | | | | | At | Signature | + +-------+ + + + | PHOSPHORUS, | 2.8 | 2.4 - 4.7 mg/dL | [facility] [...] + + + + + | [facility] | [address] | [place] [address] | | | SERVICES, CORE | [address] | | | + + + + + MAGNESIUM, PLASMA (08/29/2015 11:00 PM PST) + +-------+ + + + [...] | + + + + + | [facility] | [address] | [place] [address] | | | SERVICES, CORE | [address] | | | + + + + + COMPLETE METABOLIC SET (NA,K,CL,CO2,BUN,CREAT,GLUC,CA,AST,ALT,BILI TOTAL,ALK PHOS,ALB,PROT TOTAL) (08/29/2015 11:00 PM PST) + + + + + + | Component | Value | Ref Range | Performed | Pathologist | | | | | At | Signature | + + + + + + | GLUCOSE, | 109 (H) | 60 - 99 mg/dL | [facility] | | | PLASMA | | | LABORATORY | | | (LAB) | | | SERVICES, | | | | | | CORE | | + + + + + + | BUN, PLASMA | 10 | 6 - 20 mg/dL | [facility] | | | (LAB) | | | LABORATORY | | | | | | SERVICES, | | | | | | CORE | | + + + + + + | CREATININE | 0.64 (L) | 0.70 - 1.30 | [facility] | | | PLASMA | | mg/dL | LABORATORY | | | (LAB) | | | SERVICES, | | | | | | CORE | | + + + + + + | EGFR | >60 | >60 mL/min | [facility] | | | - | | | LABORATORY | | | MEXICAN | | | SERVICES, | | | | | | CORE | | + + + + + + | EGFR NON | >60 | >60 mL/min | [facility] | | | -JOANNE | | | LABORATORY | | | RICAN | | | SERVICES, | | | | | | CORE | | + + + + + + | SODIUM, | 140 | 136 - 145 | [facility] | | | PLASMA | | mmol/L | LABORATORY | | | (LAB) | | | SERVICES, | | | | | | CORE | | + + + + + + | POTASSIUM, | 3.9 | 3.4 - 5.0 | [facility] | | | PLASMA | | mmol/L | LABORATORY | | | (LAB) | | | SERVICES, | | | | | | CORE | | + + + + + + | CHLORIDE, | 112 (H) | 97 - 108 mmol/L | [facility] | | | PLASMA | | | LABORATORY | | | (LAB) | | | SERVICES, | | | | | | CORE | | + + + + + + | TOTAL CO2, | 22 | 21 - 32 mmol/L | [facility] | | | PLASMA | | | LABORATORY | | | (LAB) | | | SERVICES, | | | | | | CORE | | + + + + + + | CALCIUM, | 7.7 (L) | 8.6 - 10.2 | [facility] | | | PLASMA | | mg/dL | LABORATORY | | | (LAB) | | | SERVICES, | | | | | | CORE | | + + + + + + | BILIRUBIN | 0.4 | 0.3 - 1.2 mg/dL | [facility] | | | TOTAL | | | LABORATORY | | | | | | SERVICES, | | | | | | CORE | | + + + + + + | TOTAL | 6.1 (L) | 6.4 - 8.2 g/dL | [facility] | | | PROTEIN, | | | LABORATORY | | | PLASMA | | | SERVICES, | | | (LAB) | | | CORE | | + + + + + + | ALBUMIN, | 3.2 (L) | 3.5 - 4.7 g/dL | [facility] | | | PLASMA | | | LABORATORY | | | (LAB) | | | SERVICES, | | | | | | CORE | | + + + + + + | ALK PHOS | 63 | 53 - 128 U/L | [facility] | | | | | | LABORATORY | | | | | | SERVICES, | | | | | | CORE | | + + + + + + | AST(SGOT) | 11 | <=41 U/L | [facility] | | | | | | LABORATORY | | | | | | SERVICES, | | | | | | CORE | | + + + + + + | ALT (SGPT) | 31 | <=60 U/L | [facility] | | | | | | LABORATORY | | | | | | SERVICES, | | | | | | CORE | | + + + + + + | ANION | 8 | 4 - 11 mmol/L | [facility] | | | GAP(ALB | | | LABORATORY | | | CORRECTED) | | | SERVICES, | | | | | | CORE | | + + + + + + | POTASSIUM | No Hemo | | [facility] | | | CMNT | | | LABORATORY | | | | | | SERVICES, | | | | | | CORE | | + + + + + + | BILI T CMNT | No Hemo | | [facility] | | | | | | LABORATORY | | | | | | SERVICES, | | | | | | CORE | | + + + + + + | AST CMNT | No Hemo | | [facility] | | | | | | LABORATORY | | | | | | SERVICES, | | | | | | CORE | | + + + + + + | ANION GAP | 6 | mmol/L | [facility] | | | [...] + + | [facility] | [address] | [place] [address] | | | SERVICES, CORE | [address] | | | + + + + + VANCOMYCIN, TROUGH (08/29/2015 3:48 PM PST) + +-------+ + + + | Component | Value | Ref Range | Performed | Pathologist | | | | | At | Signature | + +-------+ + + + | VANCOMYCIN, | 12.8 | 5.0 - 15.0 | [facility] | | | TROUGH | | ug/mL | LABORATORY | | | | | | SERVICES, | | | | | | CORE | | + +-------+ + + + + + | Specimen | + + | Blood - Blood | | (substance) | + + + + + | Narrative | Performed At | + + + | Please draw vanco trough today prior to administration of 1600 dose. | [facility] | | Thanks! Pharm[facility] [id number] | LABORATORY | | | SERVICES, CORE | + + + + + + + + | Performing | Address | City/State/Zipcode | Phone Number | | Organization | | | | + + + + + | [facility] | [address] | [place] [address] | | | SERVICES, CORE | [address] | | | + + + + + ANTIBODY SCREEN (08/29/2015 2:49 AM PST) + + + + + [...] | + + + + + | [facility] | [address] | [place] [address] | | | SERVICES, | [address] | | | | TRANSFUSION MEDICINE | | | | + + + + + ABO & RH TYPE (08/29/2015 2:49 AM PST) + + + + + [...] [facility] | [address] | [place] [address] | | | KOLE, | [address] | | | | TRANSFUSION MEDICINE | | | | + + + + + PRODUCT - RED CELLS LEUKOREDUCED (08/29/2015 2:28 AM PST) + + + + + [...] + + + + | PRODUCT | [id number] | | [facility] | | | UNIT [...] + + + + | EXPIRATION | [id number] | | [facility] | | | DATE [...] + + + + | BLOOD | [id number] | | [facility] | | | PRODUCT [...] DEPARTMENT OF | [address] | [place] [address] | | | PATHOLOGY | [address] | | | + + + + + CBC AND AUTO DIFF (08/29/2015 12:42 AM PST) + + + + + + | Component | Value | Ref Range | Performed | Pathologist | | | | | At | Signature | + + + + + + | WHITE CELL | 0.29 (L) | 4.40 - 11.00 | [facility] | | | COUNT | | K/cu mm | LABORATORY | | | | | | SERVICES, | | | | | | CORE | | + + + + + + | RED CELL | 2.62 (L) | 4.50 - 6.00 | [facility] | | | COUNT | | M/cu mm | LABORATORY | | | | | | SERVICES, | | | | | | CORE | | + + + + + + | HEMOGLOBIN | 7.5 (L) | 13.5 - 17.5 | [facility] | | | | | g/dL | LABORATORY | | | | | | SERVICES, | | | | | | CORE | | + + + + + + | HEMATOCRIT | 21.0 (L) | 41.0 - 53.0 % | [facility] | | | | | | LABORATORY | | | | | | SERVICES, | | | | | | CORE | | + + + + + + | MCV | 80.2 | 80.0 - 96.0 fL | [facility] [...] + + + | RDW SD | 35.8 | 35.1 - 46.3 fL | [facility] | | | | | | LABORATORY | | | | | | SERVICES, | | | | | | CORE | | + + + + + + | PLATELET | 16 (L) | 150 - 400 K/cu | [facility] | | | COUNT | | mm | LABORATORY | | | | | | SERVICES, | | | | | | CORE | | + + + + + + | MPV | 9.8 | 9.7 - 12.3 fL | [facility] [...] + + + + | NEUTROPHIL | Comment: WBC <=500; | 50.0 - 70.0 % | [facility] | | | % | differential not | | LABORATORY | | | | performed. | | SERVICES, | | | | | | CORE | | + + + + + + | LYMPHOCYTE | Comment: WBC <=500; | 18.0 - 42.0 % | [facility] | | | % | differential not | | LABORATORY | | | | performed. | | SERVICES, | | | | | | CORE | | + + + + + + | MONOCYTE % | Comment: WBC <=500; | 3.5 - 9.0 % | [facility] | | | | differential not | | LABORATORY | | | | performed. | | SERVICES, | | | | | | CORE | | + + + + + + | EOS % | Comment: WBC <=500; | 1.0 - 3.0 % | [facility] | | | | differential not | | LABORATORY | | | | performed. | | SERVICES, | | | | | | CORE | | + + + + + + | BASO % | Comment: WBC <=500; | 0.0 - 2.0 % | [facility] | | | | differential not | | LABORATORY | | | | performed. | | SERVICES, | | | | | | CORE | | + + + + + + | IG% | Comment: WBC <=500; | 0.0 - 0.6 % | [facility] | | | | differential not | | LABORATORY | | | | performed. | | SERVICES, | | | | | | CORE | | + + + + + + | NEUTROPHIL | Comment: WBC <=500; | 1.80 - 7.70 | [facility] | | | # | differential not | K/cu mm | LABORATORY | | | | performed. | | SERVICES, | | | | | | CORE | | + + + + + + | LYMPHOCYTE | Comment: WBC <=500; | 1.00 - 4.80 | [facility] | | | # | differential not | K/cu mm | LABORATORY | | | | performed. | | SERVICES, | | | | | | CORE | | + + + + + + | MONOCYTE # | Comment: WBC <=500; | 0.10 - 0.90 | [facility] | | | | differential not | K/cu mm | LABORATORY | | | | performed. | | SERVICES, | | | | | | CORE | | + + + + + + | EOS # | Comment: WBC <=500; | 0.00 - 0.50 | [facility] | | | | differential not | K/cu mm | LABORATORY | | | | performed. | | SERVICES, | | | | | | CORE | | + + + + + + | BASO # | Comment: WBC <=500; | 0.00 - 0.10 | [facility] | | | | differential not | K/cu mm | LABORATORY | | | | performed. | | SERVICES, | | | | | | CORE | | + + + + + + | IG# | Comment: WBC <=500; | 0.00 - 0.03 | [facility] | | | | differential not | K/cu mm | LABORATORY | | | | performed. | | SERVICES, | | | | [...] + + + + + | [facility] | [address] | [place] [address] | | | SERVICES, CORE | [address] | | | + + + + + PHOSPHORUS, PLASMA (08/29/2015 12:42 AM PST) + +-------+ + + + | Component | Value | Ref Range | Performed | Pathologist | | | | | At | Signature | + +-------+ + + + | PHOSPHORUS, | 2.4 | 2.4 - 4.7 mg/dL | [facility] [...] + + + + + | [facility] | [address] | [place] [address] | | | KOLE, INDRA | [address] | | | + + + + + MAGNESIUM, PLASMA (08/29/2015 12:42 AM PST) + +---------+ + + + | Component | Value | Ref Range | Performed | Pathologist | | | | | At | Signature | + +---------+ + + + | MAGNESIUM,P | 1.6 (L) | 1.8 - 2.5 [...] | + + + + + | [facility] | [address] | [place] [address] | | | SERVICES, CORE | [address] | | | + + + + + COMPLETE METABOLIC SET (NA,K,CL,CO2,BUN,CREAT,GLUC,CA,AST,ALT,BILI TOTAL,ALK PHOS,ALB,PROT TOTAL) (08/29/2015 12:42 AM PST) + + + + + + | Component | Value | Ref Range | Performed | Pathologist | | | | | At | Signature | + + + + + + | GLUCOSE, | 107 (H) | 60 - 99 mg/dL | [facility] | | | PLASMA | | | LABORATORY | | | (LAB) | | | SERVICES, | | | | | | CORE | | + + + + + + | BUN, PLASMA | 12 | 6 - 20 mg/dL | [facility] | | | (LAB) | | | LABORATORY | | | | | | SERVICES, | | | | | | CORE | | + + + + + + | CREATININE | 0.67 (L) | 0.70 - 1.30 | [facility] | | | PLASMA | | mg/dL | LABORATORY | | | (LAB) | | | SERVICES, | | | | | | CORE | | + + + + + + | EGFR | >60 | >60 mL/min | [facility] | | | - | | | LABORATORY | | | MEXICAN | | | SERVICES, | | | | | | CORE | | + + + + + + | EGFR NON | >60 | >60 mL/min | [facility] | | | -JOANNE | | | LABORATORY | | | RICAN | | | SERVICES, | | | | | | CORE | | + + + + + + | SODIUM, | 141 | 136 - 145 | [facility] | | | PLASMA | | mmol/L | LABORATORY | | | (LAB) | | | SERVICES, | | | | | | CORE | | + + + + + + | POTASSIUM, | 4.2 | 3.4 - 5.0 | [facility] | | | PLASMA | | mmol/L | LABORATORY | | | (LAB) | | | SERVICES, | | | | | | CORE | | + + + + + + | CHLORIDE, | 112 (H) | 97 - 108 mmol/L | [facility] | | | PLASMA | | | LABORATORY | | | (LAB) | | | SERVICES, | | | | | | CORE | | + + + + + + | TOTAL CO2, | 22 | 21 - 32 mmol/L | [facility] | | | PLASMA | | | LABORATORY | | | (LAB) | | | SERVICES, | | | | | | CORE | | + + + + + + | CALCIUM, | 7.9 (L) | 8.6 - 10.2 | [facility] | | | PLASMA | | mg/dL | LABORATORY | | | (LAB) | | | SERVICES, | | | | | | CORE | | + + + + + + | BILIRUBIN | 0.4 [...] + + + + + + | ALBUMIN, | 3.2 (L) | 3.5 - 4.7 g/dL | [facility] | | | PLASMA | | | LABORATORY | | | (LAB) | | | SERVICES, | | | | | | CORE | | + + + + + + | ALK PHOS | 69 | 53 - 128 U/L | [facility] | | | | | | LABORATORY | | | | | | SERVICES, | | | | | | CORE | | + + + + + + | AST(SGOT) | 13 | <=41 U/L | [facility] | | | | | | LABORATORY | | | | | | SERVICES, | | | | | | CORE | | + + + + + + | ALT (SGPT) | 35 | <=60 U/L | [facility] | | | | | | LABORATORY | | | | | | SERVICES, | | | | | | CORE | | + + + + + + | ANION | 9 | 4 - 11 mmol/L | [facility] | | | GAP(ALB | | | LABORATORY | | | CORRECTED) | | | SERVICES, | | | | | | CORE | | + + + + + + | POTASSIUM | No Hemo | | [facility] | | | CMNT | | | LABORATORY | | | | | | SERVICES, | | | | | | CORE | | + + + + + + | BILI T CMNT | No Hemo | | [facility] | | | | | | LABORATORY | | | | | | SERVICES, | | | | | | CORE | | + + + + + + | AST CMNT | No Hemo | | [facility] | | | | | | LABORATORY | | | | | | SERVICES, | | | | | | CORE | | + + + + + + | ANION GAP | [...] | + + + + + | [facility] | [address] | [place] [address] | | | SERVICES, CORE | [address] | | | + + + + + VANCOMYCIN, TROUGH (08/28/2015 8:45 AM PST) + +-------+ + + + | Component | Value | Ref Range | Performed | Pathologist | | | | | At | Signature | + +-------+ + + + | VANCOMYCIN, | 9.6 | 5.0 - 15.0 | [facility] | | | TROUGH | | ug/mL | LABORATORY | | | | | | SERVICES, | | | | | | CORE | | + +-------+ + + + + + | Specimen | + + | Blood - Blood | | (substance) | + + + + + | Narrative | Performed At | + + + | Please draw a vancomycin trough prior to the 0900 dose on 08/28/15. | [facility] | | Thank you | LABORATORY | | | SERVICES, CORE | + + + + + + + + | Performing | Address | City/State/Zipcode | Phone Number | | Organization | | | | + + + + + | [facility] | [address] | [place] [address] | | | SERVICES, CORE | [address] | | | + + + + + C. DIFFICILE TOXIN (08/28/2015 3:19 AM PST) + + + + + + | Component | Value | Ref Range | Performed | Pathologist | | | | | At | Signature | + + + + + + | C.DIFFICILE | Negative | Negative | [facility] | | | TOXIN | | | LABORATORY | | | | | | SERVICES, | | | | | | CORE | | + + + + + + + + | Specimen | + + | Stool - Rectum | | structure (body | | structure) | + + + + + + + | Performing | Address | City/State/Zipcode | Phone Number | | Organization | | | | + + + + + | [facility] | [address] | [place] [address] | | | SERVICES, CORE | [address] | | | + + + + + CBC AND AUTO DIFF (08/28/2015 1:21 AM PST) + + + + + + | Component | Value | Ref Range | Performed | Pathologist | | | | | At | Signature | + + + + + + | WHITE CELL | 0.42 (L) | 4.40 - 11.00 | [facility] | | | COUNT | | K/cu mm | LABORATORY | | | | | | SERVICES, | | | | | | CORE | | + + + + + + | RED CELL | 2.86 (L) | 4.50 - 6.00 | [facility] | | | COUNT | | M/cu mm | LABORATORY | | | | | | SERVICES, | | | | | | CORE | | + + + + + + | HEMOGLOBIN | 8.2 (L) | 13.5 - 17.5 | [facility] | | | | | g/dL | LABORATORY | | | | | | SERVICES, | | | | | | CORE | | + + + + + + | HEMATOCRIT | 22.6 (L) | 41.0 - 53.0 % | [facility] | | | | | | LABORATORY | | | | | | SERVICES, | | | | | | CORE | | + + + + + + | MCV | 79.0 (L) | 80.0 - 96.0 fL | [facility] | | | | | | LABORATORY | | | | | | SERVICES, | | | | | | CORE | | + + + + + + | MCHC | 36.3 | 33.0 - 35.5 | [facility] | | | | | g/dL | LABORATORY | | | | | | SERVICES, | | | | | | CORE | | + + + + + + | RDW SD | 35.6 | 35.1 - 46.3 fL | [facility] | | | | | | LABORATORY | | | | | | SERVICES, | | | | | | CORE | | + + + + + + | PLATELET | 37 (L) | 150 - 400 K/cu | [facility] | | | COUNT | | mm | LABORATORY | | | | | | SERVICES, | | | | | | CORE | | + + + + + + | MPV | 9.8 | 9.7 - 12.3 fL | [facility] | | | | | | LABORATORY | | | | | | SERVICES, | | | | | | CORE | | + + + + + + | NRBC% | 4.8 (H) | 0.0 - 0.3 % | [facility] | | | | | | LABORATORY | | | | | | SERVICES, | | | | | | CORE | | + + + + + + | NRBC# | 0.02 | 0.00 - 0.02 | [facility] | | | | | K/cu mm | LABORATORY | | | | | | SERVICES, | | | | | | CORE | | + + + + + + | NEUTROPHIL | Comment: WBC <=500; | 50.0 - 70.0 % | [facility] | | | % | differential not | | LABORATORY | | | | performed. | | SERVICES, | | | | | | CORE | | + + + + + + | LYMPHOCYTE | Comment: WBC <=500; | 18.0 - 42.0 % | [facility] | | | % | differential not | | LABORATORY | | | | performed. | | SERVICES, | | | | | | CORE | | + + + + + + | MONOCYTE % | Comment: WBC <=500; | 3.5 - 9.0 % | [facility] | | | | differential not | | LABORATORY | | | | performed. | | SERVICES, | | | | | | CORE | | + + + + + + | EOS % | Comment: WBC <=500; | 1.0 - 3.0 % | [facility] | | | | differential not | | LABORATORY | | | | performed. | | SERVICES, | | | | | | CORE | | + + + + + + | BASO % | Comment: WBC <=500; | 0.0 - 2.0 % | [facility] | | | | differential not | | LABORATORY | | | | performed. | | SERVICES, | | | | | | CORE | | + + + + + + | IG% | Comment: WBC <=500; | 0.0 - 0.6 % | [facility] | | | | differential not | | LABORATORY | | | | performed. | | SERVICES, | | | | | | CORE | | + + + + + + | NEUTROPHIL | Comment: WBC <=500; | 1.80 - 7.70 | [facility] | | | # | differential not | K/cu mm | LABORATORY | | | | performed. | | SERVICES, | | | | | | CORE | | + + + + + + | LYMPHOCYTE | Comment: WBC <=500; | 1.00 - 4.80 | [facility] | | | # | differential not | K/cu mm | LABORATORY | | | | performed. | | SERVICES, | | | | | | CORE | | + + + + + + | MONOCYTE # | Comment: WBC <=500; | 0.10 - 0.90 | [facility] | | | | differential not | K/cu mm | LABORATORY | | | | performed. | | SERVICES, | | | | | | CORE | | + + + + + + | EOS # | Comment: WBC <=500; | 0.00 - 0.50 | [facility] | | | | differential not | K/cu mm | LABORATORY | | | | performed. | | SERVICES, | | | | | | CORE | | + + + + + + | BASO # | Comment: WBC <=500; | 0.00 - 0.10 | [facility] | | | | differential not | K/cu mm | LABORATORY | | | | performed. | | SERVICES, | | | | | | CORE | | + + + + + + | IG# | Comment: WBC <=500; | 0.00 - 0.03 | [facility] | | | | differential not | K/cu mm | LABORATORY | | | | performed. | | SERVICES, | | | | [...] + + + + + | [facility] | [address] | [place] [address] | | | SERVICESINDRA | [address] | | | + + + + + PHOSPHORUS, PLASMA (08/28/2015 1:21 AM PST) + +-------+ + + + [...] + + + + + | [facility] | [address] | [place] [address] | | | SERVICES, CORE | [address] | | | + + + + + MAGNESIUM, PLASMA (08/28/2015 1:21 AM PST) + +---------+ + + + | Component | Value | Ref Range | Performed | Pathologist | | | | | At | Signature | + +---------+ + + + | MAGNESIUM,P | 1.3 (L) | 1.8 - 2.5 mg/dL | [facility] | | | LASMA | | | [...] | + + + + + | [facility] | [address] | [place] [address] | | | SERVICES, CORE | [address] | | | + + + + + COMPLETE METABOLIC SET (NA,K,CL,CO2,BUN,CREAT,GLUC,CA,AST,ALT,BILI TOTAL,ALK PHOS,ALB,PROT TOTAL) (08/28/2015 1:21 AM PST) + + + + + + | Component | Value | Ref Range | Performed | Pathologist | | | | | At | Signature | + + + + + + | GLUCOSE, | 116 (H) | 60 - 99 mg/dL | [facility] | | | PLASMA | | | LABORATORY | | | (LAB) | | | SERVICES, | | | | | | CORE | | + + + + + + | BUN, PLASMA | 13 | 6 - 20 mg/dL | [facility] | | | (LAB) | | | LABORATORY | | | | | | SERVICES, | | | | | | CORE | | + + + + + + | CREATININE | 0.57 (L) | 0.70 - 1.30 | [facility] | | | PLASMA | | mg/dL | LABORATORY | | | (LAB) | | | SERVICES, | | | | | | CORE | | + + + + + + | EGFR | >60 | >60 mL/min | [facility] | | | - | | | LABORATORY | | | MEXICAN | | | SERVICES, | | | | | | CORE | | + + + + + + | EGFR NON | >60 | >60 mL/min | [facility] | | | -JOANNE | | | LABORATORY | | | RICAN | | | SERVICES, | | | | | | CORE | | + + + + + + | SODIUM, | 137 | 136 - 145 | [facility] | | | PLASMA | | mmol/L | LABORATORY | | | (LAB) | | | SERVICES, | | | | | | CORE | | + + + + + + | POTASSIUM, | 3.8 | 3.4 - 5.0 | [facility] | | | PLASMA | | mmol/L | LABORATORY | | | (LAB) | | | SERVICES, | | | | | | CORE | | + + + + + + | CHLORIDE, | 106 | 97 - 108 mmol/L | [facility] | | | PLASMA | | | LABORATORY | | | (LAB) | | | SERVICES, | | | | | | CORE | | + + + + + + | TOTAL CO2, | 22 | 21 - 32 mmol/L | [facility] | | | PLASMA | | | LABORATORY | | | (LAB) | | | SERVICES, | | | | | | CORE | | + + + + + + | CALCIUM, | 8.6 | 8.6 - 10.2 | [facility] | | | PLASMA | | mg/dL | LABORATORY | | | (LAB) | | | SERVICES, | | | | | | CORE | | + + + + + + | BILIRUBIN | 0.6 | 0.3 - 1.2 mg/dL | [facility] | | | TOTAL | | | LABORATORY | | | | | | SERVICES, | | | | | | CORE | | + + + + + + | TOTAL | 6.9 | 6.4 - 8.2 g/dL | [facility] | | | PROTEIN, | | | LABORATORY | | | PLASMA | | | SERVICES, | | | (LAB) | | | CORE | | + + + + + + | ALBUMIN, | 3.6 | 3.5 - 4.7 g/dL | [facility] | | | PLASMA | | | LABORATORY | | | (LAB) | | | SERVICES, | | | | | | CORE | | + + + + + + | ALK PHOS | 80 | 53 - 128 U/L | [facility] | | | | | | LABORATORY | | | | | | SERVICES, | | | | | | CORE | | + + + + + + | AST(SGOT) | 12 | <=41 U/L | [facility] | | | | | | LABORATORY | | | | | | SERVICES, | | | | | | CORE | | + + + + + + | ALT (SGPT) | 34 | <=60 U/L | [facility] | | | | | | LABORATORY | | | | | | SERVICES, | | | | | | CORE | | + + + + + + | ANION | 10 | 4 - 11 mmol/L | [facility] | | | GAP(ALB | | | LABORATORY | | | CORRECTED) | | | SERVICES, | | | | | | CORE | | + + + + + + | POTASSIUM | No Hemo | | [facility] | | | CMNT | | | LABORATORY | | | | | | SERVICES, | | | | | | CORE | | + + + + + + | BILI T CMNT | No Hemo | | [facility] | | | | | | LABORATORY | | | | | | SERVICES, | | | | | | CORE | | + + + + + + | AST CMNT | No Hemo | | [facility] | | | | | | LABORATORY | | | | | | SERVICES, | | | | | | CORE | | + + + + + + | ANION GAP | [...] | + + + + + | [facility] | [address] | [place] [address] | | | INDRA SHARIF | [address] | | | + + + + + ALLOGENEIC BLOOD-DERIVED PERIPHERAL STEM CELL TRANSPLANTATION (08/27/2015 6:19 PM PST) + + + | Narrative | Performed At | + + + | Daniel Das MD 08/27/2015 6:19 PM Hemat[facility]genitor | | | Cell Infusion Record Name: Khurram Kelly MRN: | | | [id number] Indication for Procedure: Reconstitution of hematopoiesis | | | Transplant Physician: Yari Garcia MD Person Infusing Product: | | | Daniel Das MD Recipient and unit identity were confirmed prior to | | | initiation of the infusion: Yes I verify I have reviewed the | | | documentation from the Cell Processing Lab which included ABO typing | | | and antibody screen, ABO compatibility, and processing: Yes | | | Bag identification was crosschecked per [facility] policy: Yes Product | | | number was confirmed: Yes Product integrity was inspected: Yes | | | The product characteristics, cell dose and volume are described in | | | the Cell Processing Lab documentation Pre - Procedure Vital Signs: Ht | | | 1.873 m (6' 1.75"), Wt 80 kg (176 lb 5.9 oz), BP 125/75, Pulse 55, | | | Temperature 37 C (98.6 F), RR 18, SpO2 100%, BMI 22.8 kg/(m^2). | | | Please refer to Vitals Flowsheet for vitals recorded during | | | Infusion: Donor Source: [facility], apheresis Date: 08/26/2015 Time: | | | ~180 minutes Volume: 359 mL CD34 dose (x10^6/Kg):5.96 CD3 dose | | | (x10^8/Kg):3.44 RBC (mL):7.5 mL Patient was premedicated with | | | Tylenol, Benadryl and Hydrocortisone. Patient received an infusion | | | of the above product intravenously through a central catheter. Vital | | | signs were monitored throughout the procedure. Observation | | | Allergic Reaction: No Rigors / Chills: No Fever: No Cardiac | | | Arrhythmia: No Other Cardiac: No Blood Pressure Change: No Hypoxia: | | | No Cough: No Thrombosis / pulm. Embolism: No Other Pulmonary: No | | | Nausea: No Vomiting: No Pain: No Other( Hoca): No *If grade 3 or | | | 4 toxicity occurs, please call the [facility] Lab [phone] to initiate the | | | [facility] Adverse Reaction Report process. I was present at start of | | | infusion, check on patient during infusion and after infusion. I was | | | on floor during infusion Daniel MD PhD YESSICA Das | | | [facility] [place] | | + + + 12 LEAD ECG (08/27/2015 6:06 PM PST) + + + + + + | Component | Value | Ref Range | Performed | Pathologist | | | | | At | Signature | + + + + + + | VENTRICULAR | 74 | bpm | [facility] | | | RATE | | | OF | | | | | | CARDIOLOGY | | + + + + + + | ATRIAL RATE | 73 | bpm | [facility] | | | | | | OF | | | | | | CARDIOLOGY | | + + + + + + | P-R | 156 | ms | [facility] | | | INTERVAL | | | OF | | | | | | CARDIOLOGY | | + + + + + + | P AXIS | 58 | deg | [facility] | | | | | | OF | | | | | | CARDIOLOGY | | + + + + + + | QRS | 98 | ms | [facility] | | | DURATION | | | OF | | | | | | CARDIOLOGY | | + + + + + + | QT | 388 | ms | [facility] | | | | | | OF | | | | | | CARDIOLOGY | | + + + + + + | QTCB | 431 | ms | [facility] | | | | | | OF | | | | | | CARDIOLOGY | | + + + + + + | R AXIS | -22 | deg | [facility] | | | | | | OF | | | | | | CARDIOLOGY | | + + + + + + | T AXIS | 54 | deg | [facility] | | | | | | OF | | | | | | CARDIOLOGY | | + + + + + + | ECG | SINUS RHYTHM- NORMAL ECG | | [facility] | | | IMPRESSION | -Electronically signed | | OF | | | | by: CRISSY TORRES 08-28-2015 | | CARDIOLOGY | | | | 14:58:15 | | | | + + + [...] + + | [facility] | [id number] | [place], [place] | | | CARDIOLOGY | [address] | [phone] | | + + + + + PROCEDURE NOTE (08/27/2015 1:54 PM PST) + + + | Narrative | Performed At | + + + | Julia Yee 08/27/2015 1:54 PM Cell Processing Name: | | | Khurram Navaleland Donation Identification | | | Number: [id number] Donor Source:[facility], Apheresis Donor | | | Name: NMD Donor MRN/NMDP ID:[id number] ABO/Rh Donor:Apos | | | Recipient:A pos Antibody Screen Donor:negative | | | Recipient:negative ABO Compatible:Compatible | | | Processing:None Bag Identification Cross Checked: Yes Donation | | | Identification Number Confirmed:Yes Product Integrity Inspected:Yes | | | Product Characteristics: Volume: 359 mL CD34 dose | | | (x10^6/Kg):5.96 CD3 dose (x10^8/Kg):3.44 RBC (mL):7.5 mL Donor | | | CMV Status: Positive Recipient CMV Status: Positive Julia | | | RIANNA | | + + + RBC MORPHOLOGY (08/27/2015 4:36 AM PST) + + + + + [...] + + + + + + | MICROCYTOSI | 1+(10-25cells/HPF) | | [facility] | | | S | | | LABORATORY | | | | | | SERVICES, | | | | | | CORE | | + + + + + + | SPHEROCYTES | 1+ (<1-2cells/HPF) | | [facility] | | | | | | LABORATORY | | | | | | SERVICES, | | | | | | CORE | | + + + + + + | CHRISTINE SALINAS | Present | | [facility] | | | | | | LABORATORY | | | NEUTROPHILS | | | SERVICES, | | | [...] [facility] | [address] | [place] [address] | | | SERVICES, CORE | [address] | | | + + + + + MANUAL DIFFERENTIAL (08/27/2015 4:36 AM PST) + + + + + + | Component | Value | Ref Range | Performed | Pathologist | | | | | At | Signature | + + + + + + | NEUTROPHIL | 72.2 (H) | 50.0 - 70.0 % | [facility] | | | % | | | LABORATORY | | | | | | SERVICES, | | | | | | CORE | | + + + + + + | LYMPHOCYTE | 7.8 (L) | 18.0 - 42.0 % | [facility] | | | % | | | LABORATORY | | | | | | SERVICES, | | | | | | CORE | | + + + + + + | MONOCYTE % | 16.5 (H) | 3.5 - 9.0 % | [...] + + + + | IG% | 3.5 (H)Comment: Immature | 0.0 - 0.6 % [...] + + + + | NEUTROPHIL | 0.95 (L) | 1.80 - 7.70 | [facility] | | | # | | K/cu mm | LABORATORY | | | | | | SERVICES, | | | | | | CORE | | + + + + + + | LYMPHOCYTE | 0.10 (L) | 1.00 - 4.80 | [facility] | | | # | | K/cu mm | LABORATORY | | | | | | SERVICES, | | | | | | CORE | | + + + + + + | MONOCYTE # | 0.22 | 0.10 - 0.90 | [facility] | [...] [facility] | [address] | [place] [address] | | | SERVICES, CORE | [address] | | | + + + + + CBC AND AUTO DIFF (08/27/2015 4:36 AM PST) + + + + + + | Component | Value | Ref Range | Performed | Pathologist | | | | | At | Signature | + + + + + + | WHITE CELL | 1.31 (L) | 4.40 - 11.00 | [facility] | | | COUNT | | K/cu mm | LABORATORY | | | | | | SERVICES, | | | | | | CORE | | + + + + + + | RED CELL | 2.89 (L) | 4.50 - 6.00 | [facility] | | | COUNT | | M/cu mm | LABORATORY | | | | | | SERVICES, | | | | | | CORE | | + + + + + + | HEMOGLOBIN | 8.4 (L) | 13.5 - 17.5 | [facility] | | | | | g/dL | LABORATORY | | | | | | SERVICES, | | | | | | CORE | | + + + + + + | HEMATOCRIT | 23.2 (L) | 41.0 - 53.0 % | [facility] | | | | | | LABORATORY | | | | | | SERVICES, | | | | | | CORE | | + + + + + + | MCV | 80.3 | 80.0 - 96.0 fL | [facility] | | | | | | LABORATORY | | | | | | SERVICES, | | | | | | CORE | | + + + + + + | MCHC | 36.2 | 33.0 - 35.5 | [facility] | | | | | g/dL | LABORATORY | | | | | | SERVICES, | | | | | | CORE | | + + + + + + | RDW SD | 36.2 | 35.1 - 46.3 fL | [facility] | | | | | | LABORATORY | | | | | | SERVICES, | | | | | | CORE | | + + + + + + | PLATELET | 70 (L) | 150 - 400 K/cu | [...] + + | [facility] | [address] | [place] [address] | | | SERVICES, CORE | [address] | | | + + + + + PHOSPHORUS, PLASMA (08/27/2015 4:36 AM PST) + +-------+ + + + [...] + + + + + | [facility] | [address] | [place] [address] | | | SERVICES, CORE | [address] | | | + + + + + MAGNESIUM, PLASMA (08/27/2015 4:36 AM PST) + +---------+ + + + | Component | Value | Ref Range | Performed | Pathologist | | | | | At | Signature | + +---------+ + + + | MAGNESIUM,P | 1.7 (L) | 1.8 - 2.5 mg/dL | [facility] | | | LASMA | | | [...] | + + + + + | [facility] | [address] | [place] [address] | | | SERVICES, CORE | [address] | | | + + + + + COMPLETE METABOLIC SET (NA,K,CL,CO2,BUN,CREAT,GLUC,CA,AST,ALT,BILI TOTAL,ALK PHOS,ALB,PROT TOTAL) (08/27/2015 4:36 AM PST) + +---------+ + + + [...] +---------+ + + + | CREATININE | 0.78 | 0.70 - 1.30 | [facility] | | | PLASMA | | mg/dL | LABORATORY | | | (LAB) | | | SERVICES, | | | | | | CORE | | + +---------+ + + + | EGFR | >60 | >60 mL/min | [facility] | | | - | | | LABORATORY | | | MEXICAN | | | SERVICES, | | | [...] + | TOTAL CO2, | 23 | 21 - 32 mmol/L | [facility] | | | PLASMA | | | LABORATORY | | | (LAB) | | | SERVICES, | | | | | | CORE | | + +---------+ + + + | CALCIUM, | 8.8 | 8.6 - 10.2 | [facility] | [...] + + + | ALK PHOS | 85 | 53 - 128 U/L | [facility] | | | | | | LABORATORY | | | | | | SERVICES, | | | | | | CORE | | + +---------+ + + + | AST(SGOT) | 18 | <=41 U/L | [facility] | | | | | | LABORATORY | | | | | | SERVICES, | | | | | | CORE | | + +---------+ + + + | ALT (SGPT) | 36 | <=60 U/L | [facility] | | [...] + | [facility] | [address] | [place] [address] | | | SERVICES, CORE | [address] | | | + + + + + CULTURE, BLOOD BACTI & YEAST YESSICA (08/26/2015 4:54 PM PST) + + + + + [...] + | Specimen | + + | Apheresis - PBSC - | | Apheresis - PBSC | + + + + + + + | Performing | Address | City/State/Zipcode | Phone Number | | Organization | | | | + + + + + | [facility] | [address] | [place] [address] | | | SERVICES, CORE | [address] | | | + + + + + PRODUCT ADD'L MARKERS (08/26/2015 4:53 PM PST) + +-------+ + + + | Component | Value | Ref Range | Performed | Pathologist | | | | | At | Signature | + +-------+ + + + | PRODUCT | 7.0 | % | [facility] | | | CD19% | | | LABORATORY | | | OFTOTAL | | | SERVICES, | | | NUCL CELLS | | | SPECIAL IMM | | | | | | + COAG | | + +-------+ + + + | PRODUCT | 28.5 | % | [facility] | | | CD3% OF | | | LABORATORY | | | TOTAL NUCL | | | SERVICES, | | | CELLS | | | SPECIAL IMM | | | | | | + COAG | | + +-------+ + + + | PRODUCT | 15.9 | % | [facility] | | | CD4% OF | | | LABORATORY | | | TOTAL NUCL | | | SERVICES, | | | CELLS | | | SPECIAL IMM | | | | | | + COAG | | + +-------+ + + + | PRODUCT | 13.2 | % | [facility] | | | CD8% OF | | | LABORATORY | | | TOTAL NUCL | | | SERVICES, | | | CELLS | | | SPECIAL IMM | | | | | | + COAG | | + +-------+ + + + | PRODUCT NK% | 3.7 | % | [facility] | | | OF TOTAL | | | LABORATORY | | | NUCL CELLS | | | SERVICES, | | | | | | SPECIAL IMM | | | | | | + COAG | | + +-------+ + + + | PRODUCT | | | [facility] | | | IDENTIFIER | | | LABORATORY | | | ADD'L | | | SERVICES, | | | MARKERS | | | SPECIAL IMM | | | | | | + COAG | | + +-------+ + + + + + | Specimen | + + | Stem cells | + + + + + + + | Performing | Address | City/State/Zipcode | Phone Number | | Organization | | | | + + + + + | [facility] | [address] | [place] [address] | | | SERVICES, SPECIAL | [address] | | | | IMM + COAG | | | | + + + + + PRODUCT CD34 STEM CELLS (08/26/2015 4:53 PM PST) + + + + + + | Component | Value | Ref Range | Performed | Pathologist | | | | | At | Signature | + + + + + + | PRODUCT | [id number] | | [facility] | | | IDENTIFIER | | | LABORATORY | | | | | | SERVICES, | | | | | | SPECIAL IMM | | | | | | + COAG | | + + + + + + | PRODUCT | 1.369 | X10*6 / mL | [facility] | | | CD34 | | | LABORATORY | | | POSITIVE | | | SERVICES, | | | CELLS | | | SPECIAL IMM | | | | | | + COAG | | + + + + + + | PRODUCT | 0.54 | % | [facility] | | | CD34 | | | LABORATORY | | | PERCENT | | | SERVICES, | | | | | | SPECIAL IMM | | | | | | + COAG | | + + + + + + + + | Specimen | + + | Stem cells | + + + + + + + | Performing | Address | City/State/Zipcode | Phone Number | | Organization | | | | + + + + + | [facility] | [address] | [place] [address] | | | SERVICES, SPECIAL | [address] | | | | IMM + COAG | | | | + + + + + PRODUCT MANUAL DIFF (08/26/2015 4:52 PM PST) + + + + + + | Component | Value | Ref Range | Performed | Pathologist | | | | | At | Signature | + + + + + + | PRODUCT | [id number] | | [facility] | | | IDENTIFIER | | | LABORATORY | | | | | | SERVICES, | | | | | | CORE | | + + + + + + | TOTAL | 200 | | [facility] | | | COUNTED,BP | | | LABORATORY | | | | | | SERVICES, | | | | | | CORE | | + + + + + + | PRODUCT | 99 | % | [facility] | | | MONONUCLEAR | | | LABORATORY | | | | | | SERVICES, | | | | | | CORE | | + + + + + + | PRODUCT | 1 | % | [facility] | | | OTHER | | | LABORATORY | | | | | | SERVICES, | | | | | | CORE | | + + + + + + + + | Specimen | + + | Stem cells - Blood | | (substance) | + + + + + + + | Performing | Address | City/State/Zipcode | Phone Number | | Organization | | | | + + + + + | [facility] | [address] | [place] [address] | | | SERVICES, CORE | [address] | | | + + + + + PRODUCT CELL COUNT (08/26/2015 4:52 PM PST) + + + + + + | Component | Value | Ref Range | Performed | Pathologist | | | | | At | Signature | + + + + + + | PRODUCT | [id number] | | [facility] | | | IDENTIFIER | | | LABORATORY | | | | | | SERVICES, | | | | | | CORE | | + + + + + + | PRODUCT WBC | 277.1 | K/cu mm | [facility] | | | | | | LABORATORY | | | | | | SERVICES, | | | | | | CORE | | + + + + + + | PRODUCT RBC | 0.22 | M/cu mm | [facility] | | | | | | LABORATORY | | | | | | SERVICES, | | | | | | CORE | | + + + + + + | PRODUCT HGB | <0.6 | g/dL | [facility] | | | | | | LABORATORY | | | | | | SERVICES, | | | | | | CORE | | + + + + + + | PRODUCT HCT | 2.1 | % | [facility] | | | | | | LABORATORY | | | | | | SERVICES, | | | | | | CORE | | + + + + + + | PRODUCT PLT | 1,008 | K/cu mm | [facility] | | | | | | LABORATORY | | | | | | SERVICES, | | | | | | CORE | | + + + + + + + + | Specimen | + + | Stem cells - Blood | | (substance) | + + + + + + + | Performing | Address | City/State/Zipcode | Phone Number | | Organization | | | | + + + + + | [facility] | [address] | [place] [address] | | | SERVICES, CORE | [address] | | | + + + + + URD HPCA BASIC PROCESSING (08/26/2015 4:52 PM PST) + + + + + + | Component | Value | Ref Range | Performed | Pathologist | | | | | At | Signature | + + + + + + | PRODUCT | URD HPC, Apheresis | | [facility] | | | TYPE | [id number] | | CELL | | | | | | PROCESSING | | | | | | LAB | | + + + + + + | TRANSPLANT | 08/26/15 | | [facility] | | | DATE | | | CELL | | | | | | PROCESSING | | | | | | LAB | | + + + + + + | PRODUCT | 359 | mL | [facility] | | | VOLUME TX | | | CELL | | | | | | PROCESSING | | | | | | LAB | | + + + + + + | TNC DOSE | 12.07 | x10 8/Kg | [facility] | | | | | | CELL | | | | | | PROCESSING | | | | | | LAB | | + + + + + + | TMNC DOSE | 11.95 | x10 8/Kg | [facility] | | | | | | CELL | | | | | | PROCESSING | | | | | | LAB | | + + + + + + | CD34 DOSE | 5.96 | x10 6/Kg | [facility] | | | | | | CELL | | | | | | PROCESSING | | | | | | LAB | | + + + + + + | CD3 DOSE | 3.44 | x10 8/Kg | [facility] | | | | | | CELL | | | | | | PROCESSING | | | | | | LAB | | + + + + + + | CD4 DOSE | 1.92 | x10 8/Kg | [facility] | | | | | | CELL | | | | | | PROCESSING | | | | | | LAB | | + + + + + + | CD8 DOSE | 1.59 | x10 8/Kg | [facility] | | | | | | CELL | | | | | | PROCESSING | | | | | | LAB | | + + + + + + | CD19 DOSE | 0.84 | x10 8/Kg | [facility] | | | | | | CELL | | | | | | PROCESSING | | | | | | LAB | | + + + + + + | NK DOSE | 0.45 | x10 8/Kg | [facility] | | | | | | CELL | | | | | | PROCESSING | | | | | | LAB | | + + + + + + + + | Specimen | + + | Apheresis - PBSC | + + + + + + + | Performing | Address | City/State/Zipcode | Phone Number | | Organization | | | | + + + + + | [facility] | [address] | [place], [place] | | | PROCESSING LAB | [address] | [address] | | + + + + + VRE (DIAZ) BY PCR (08/26/2015 2:11 PM PST) + + + + + + | Component | Value | Ref Range | Performed | Pathologist | | | | | At | Signature | + + + + + + | VRE BY PCR | Negative for Van A gene | Negative for | [facility] | | | | | Van A gene | LABORATORY | | | | | | SERVICES, | | | | | | CORE | | + + + + + + + + | Specimen | + + | Swab - Rectum | | structure (body | | structure) | + + + + + + + | Performing | Address | City/State/Zipcode | Phone Number | | Organization | | | | + + + + + | [facility] | [address] | [place] [address] | | | SERVICES, CORE | [address] | | | + + + + + TACROLIMUS, WHOLE BLOOD (08/26/2015 10:25 AM PST) + +---------+ + + + | Component | Value | Ref Range | Performed | Pathologist | | | | | At | Signature | + +---------+ + + + | TACROLIMUS | 4.1 (L) | 5.0 - 15.0 | [facility] [...] | + + + + + | [facility] | [address] | [place] [address] | | | SERVICES, SPECIAL | [address] | | | | IMM + COAG | | | | + + + + + PRODUCT - PLATELET PHERESIS LEUKOREDUCED (08/26/2015 7:32 AM PST) + + + + + [...] + + + + | PRODUCT | [id number] | | [facility] | | | UNIT [...] + + + + | EXPIRATION | [id number] | | [facility] | | | DATE [...] + + + + | BLOOD | [id number] | | [facility] | | | PRODUCT [...] | + + + + + | [facility] | [address] | [place] [address] | | | PATHOLOGY | [address] | | | + + + + + PLATELET COUNT, WHOLE BLOOD (08/26/2015 6:21 AM PST) + +--------+ + + + | Component | Value | Ref Range | Performed | Pathologist | | | | | At | Signature | + +--------+ + + + | PLATELET | 40 (L) | 150 - 400 K/cu | [...] [facility] | [address] | [place] [address] | | | SERVICES, CORE | [address] | | | + + + + + PRODUCT - PLATELET PHERESIS LEUKOREDUCED (08/26/2015 4:55 AM PST) + + + + + [...] + + + + | PRODUCT | [id number] | | [facility] | | | UNIT [...] + + + + | EXPIRATION | [id number] | | [facility] | | | DATE [...] + + + + | BLOOD | [id number] | | [facility] | | | PRODUCT [...] DEPARTMENT OF | [address] | [place] [address] | | | PATHOLOGY | [address] | | | + + + + + RBC MORPHOLOGY (08/26/2015 12:51 AM PST) + + | Specimen | + + | Blood - Blood | | (substance) | + + + + + + + | Performing | Address | City/State/Zipcode | Phone Number | | Organization | | | | + + + + + | [facility] | [address] | [place] [address] | | | SERVICES, CORE | [address] | | | + + + + + MANUAL DIFFERENTIAL (08/26/2015 12:51 AM PST) + + + + + + | Component | Value | Ref Range | Performed | Pathologist | | | | | At | Signature | + + + + + + | NEUTROPHIL | 74.1 (H) | 50.0 - 70.0 % | [facility] | | | % | | | LABORATORY | | | | | | SERVICES, | | | | | | CORE | | + + + + + + | LYMPHOCYTE | 11.1 (L) | 18.0 - 42.0 % | [...] + + + + | NEUTROPHIL | 0.62 (L) | 1.80 - 7.70 | [facility] | | | # | | K/cu mm | LABORATORY | | | | | | SERVICES, | | | | | | CORE | | + + + + + + | LYMPHOCYTE | 0.09 (L) | 1.00 - 4.80 | [facility] | | | # | | K/cu mm | LABORATORY | | | | | | SERVICES, | | | | | | CORE | | + + + + + + | MONOCYTE # | 0.12 | 0.10 - 0.90 | [facility] | [...] + + | [facility] | [address] | [place] [address] | | | KOLE, INDRA | [address] | | | + + + + + CBC AND AUTO DIFF (08/26/2015 12:51 AM PST) + + + + + + | Component | Value | Ref Range | Performed | Pathologist | | | | | At | Signature | + + + + + + | WHITE CELL | 0.83 (L) | 4.40 - 11.00 | [facility] | | | COUNT | | K/cu mm | LABORATORY | | | | | | SERVICES, | | | | | | CORE | | + + + + + + | RED CELL | 2.86 (L) | 4.50 - 6.00 | [facility] | | | COUNT | | M/cu mm | LABORATORY | | | | | | SERVICES, | | | | | | CORE | | + + + + + + | HEMOGLOBIN | 8.2 (L) | 13.5 - 17.5 | [facility] | | | | | g/dL | LABORATORY | | | | | | SERVICES, | | | | | | CORE | | + + + + + + | HEMATOCRIT | 23.2 (L) | 41.0 - 53.0 % | [facility] | | | | | | LABORATORY | | | | | | SERVICES, | | | | | | CORE | | + + + + + + | MCV | 81.1 | 80.0 - 96.0 fL | [facility] [...] + + + | RDW SD | 37.7 | 35.1 - 46.3 fL | [facility] | | | | | | LABORATORY | | | | | | SERVICES, | | | | | | CORE | | + + + + + + | PLATELET | 29 (L) | 150 - 400 K/cu | [...] + | [facility] | [address] | [place] [address] | | | SERVICES, CORE | [address] | | | + + + + + LDH TOTAL, PLASMA (08/26/2015 12:51 AM PST) + +---------+ + + + | Component | Value | Ref Range | Performed | Pathologist | | | | | At | Signature | + +---------+ + + + | LD TOTAL, | 143 | <=250 U/L | [facility] | | [...] [facility] | [address] | [place] [address] | | | SERVICES, CORE | [address] | | | + + + + + PHOSPHORUS, PLASMA (08/26/2015 12:51 AM PST) + +-------+ + + + [...] + + + + + | [facility] | [address] | [place] [address] | | | SERVICES, CORE | [address] | | | + + + + + MAGNESIUM, PLASMA (08/26/2015 12:51 AM PST) + +---------+ + + + | Component | Value | Ref Range | Performed | Pathologist | | | | | At | Signature | + +---------+ + + + | MAGNESIUM,P | 1.7 (L) | 1.8 - 2.5 mg/dL | [facility] | | | CH[facility]IS[facility] | | | LABORATORY | | | [...] | + + + + + | [facility] | [address] | [place] [address] | | | SERVICES, CORE | [address] | | | + + + + + COMPLETE METABOLIC SET (NA,K,CL,CO2,BUN,CREAT,GLUC,CA,AST,ALT,BILI TOTAL,ALK PHOS,ALB,PROT TOTAL) (08/26/2015 12:51 AM PST) + + + + + + | Component | Value | Ref Range | Performed | Pathologist | | | | | At | Signature | + + + + + + | GLUCOSE, | 105 (H) | 60 - 99 mg/dL | [facility] | | | PLASMA | | | LABORATORY | | | (LAB) | | | SERVICES, | | | | | | CORE | | + + + + + + | BUN, PLASMA | 11 | 6 - 20 mg/dL | [facility] | | | (LAB) | | | LABORATORY | | | | | | SERVICES, | | | | | | CORE | | + + + + + + | CREATININE | 0.65 (L) | 0.70 - 1.30 | [facility] | | | PLASMA | | mg/dL | LABORATORY | | | (LAB) | | | SERVICES, | | | | | | CORE | | + + + + + + | EGFR | >60 | >60 mL/min | [facility] | | | - | | | LABORATORY | | | MEXICAN | | | SERVICES, | | | | | | CORE | | + + + + + + | EGFR NON | >60 | >60 mL/min | [facility] | | | -JOANNE | | | LABORATORY | | | RICAN | | | SERVICES, | | | | | | CORE | | + + + + + + | SODIUM, | 139 | 136 - 145 | [facility] | | | PLASMA | | mmol/L | LABORATORY | | | (LAB) | | | SERVICES, | | | | | | CORE | | + + + + + + | POTASSIUM, | 4.1 | 3.4 - 5.0 | [facility] | | | PLASMA | | mmol/L | LABORATORY | | | (LAB) | | | SERVICES, | | | | | | CORE | | + + + + + + | CHLORIDE, | 109 (H) | 97 - 108 mmol/L | [facility] | | | PLASMA | | | LABORATORY | | | (LAB) | | | SERVICES, | | | | | | CORE | | + + + + + + | TOTAL CO2, | 22 | 21 - 32 mmol/L | [facility] | | | PLASMA | | | LABORATORY | | | (LAB) | | | SERVICES, | | | | | | CORE | | + + + + + + | CALCIUM, | 8.4 (L) | 8.6 - 10.2 | [facility] | | | PLASMA | | mg/dL | LABORATORY | | | (LAB) | | | SERVICES, | | | | | | CORE | | + + + + + + | BILIRUBIN | 0.5 | 0.3 - 1.2 mg/dL | [facility] | | | TOTAL | | | LABORATORY | | | | | | SERVICES, | | | | | | CORE | | + + + + + + | TOTAL | 6.6 | 6.4 - 8.2 g/dL | [facility] | | | PROTEIN, | | | LABORATORY | | | PLASMA | | | SERVICES, | | | (LAB) | | | CORE | | + + + + + + | ALBUMIN, | 3.5 | 3.5 - 4.7 g/dL | [facility] | | | PLASMA | | | LABORATORY | | | (LAB) | | | SERVICES, | | | | | | CORE | | + + + + + + | ALK PHOS | 79 | 53 - 128 U/L | [facility] | | | | | | LABORATORY | | | | | | SERVICES, | | | | | | CORE | | + + + + + + | AST(SGOT) | 12 | <=41 U/L | [facility] | | | | | | LABORATORY | | | | | | SERVICES, | | | | | | CORE | | + + + + + + | ALT (SGPT) | 30 | <=60 U/L | [facility] | | | | | | LABORATORY | | | | | | SERVICES, | | | | | | CORE | | + + + + + + | ANION | 9 | 4 - 11 mmol/L | [facility] | | | GAP(ALB | | | LABORATORY | | | CORRECTED) | | | SERVICES, | | | | | | CORE | | + + + + + + | POTASSIUM | No Hemo | | [facility] | | | CMNT | | | LABORATORY | | | | | | SERVICES, | | | | | | CORE | | + + + + + + | BILI T CMNT | No Hemo | | [facility] | | | | | | LABORATORY | | | | | | SERVICES, | | | | | | CORE | | + + + + + + | AST CMNT | No Hemo | | [facility] | | | | | | LABORATORY | | | | | | SERVICES, | | | | | | CORE | | + + + + + + | ANION GAP | [...] | + + + + + | [facility] | [address] | [place] [address] | | | SERVICES, CORE | [address] | | | + + + + + INR (08/26/2015 12:51 AM PST) + + + + + + | Component | Value | Ref Range | Performed | Pathologist | | | | | At | Signature | + + + + + + | INR | 1.25 (H) | 0.90 - 1.20 INR | [facility] [...] | + + + + + | [facility] | [address] | [place] [address] | | | SERVICES, CORE | [address] | | | + + + + + PRODUCT - PLATELET PHERESIS LEUKOREDUCED (08/26/2015 12:19 AM PST) + + + + + [...] + + + + | PRODUCT | [id number] | | [facility] | | | UNIT [...] + + + + | EXPIRATION | [id number] | | [facility] | | | DATE [...] + + + + | BLOOD | [id number] | | [facility] | | | PRODUCT [...] + + + + + | [facility] DEPARTMENT OF | [address] | [place] [address] | | | PATHOLOGY | [address] | | | + + + + + PRODUCT - PLATELET PHERESIS LEUKOREDUCED (08/25/2015 7:31 PM PST) + + + + + [...] + + + + | PRODUCT | [id number] | | [facility] | | | UNIT [...] + + + + | EXPIRATION | [id number] | | [facility] | | | DATE [...] + + + + | BLOOD | [id number] | | [facility] | | | PRODUCT [...] | + + + + + | [facility] | [address] | [place] [address] | | | PATHOLOGY | [address] | | | + + + + + UA DIPSTICK ONLY, POC RESULT (08/25/2015 1:45 PM PST) + +-------+ + + + | Component | Value | Ref Range | Performed | Pathologist | | | | | At | Signature | + +-------+ + + + | BLOOD (UA | Neg | Negative | | | | DIP), POC | | | | | + +-------+ + + + VANCOMYCIN, TROUGH (08/25/2015 10:10 AM PST) + +-------+ + + + | Component | Value | Ref Range | Performed | Pathologist | | | | | At | Signature | + +-------+ + + + | VANCOMYCIN, | 13.3 | 5.0 - 15.0 | [facility] | | | TROUGH | | ug/mL | LABORATORY | | | | | | SERVICES, | | | | | | CORE | | + +-------+ + + + + + | Specimen | + + | Blood - Blood | | (substance) | + + + + + | Narrative | Performed At | + + + | Please draw a vancomycin trough prior to the 0900 dose on 08/25/15. | [facility] | | Thank you | LABORATORY | | | SERVICES, INDRA | + + + + + + + + | Performing | Address | City/State/Zipcode | Phone Number | | Organization | | | | + + + + + | [facility] | [address] | [place] [address] | | | SERVICES, INDRA | [address] | | | + + + + + URINE, MICROSCOPIC EXAM (08/25/2015 6:04 AM PST) + +-------+ + + + | Component | Value | Ref Range | Performed | Pathologist | | | | | At | Signature | + +-------+ + + + | RED CELLS | <1 | 0 - 3 /hpf | [facility] | | | | | | LABORATORY | | | | | | SERVICES, | | | | | | CORE | | + +-------+ + + + | WHITE CELLS | <1 | 0 - 5 /hpf | [facility] | | | | | | LABORATORY | | | | | | SERVICES, | | | | | | CORE | | + +-------+ + + + | BACTERIA | None | None /hpf | [facility] | | | | | | LABORATORY | | | | | | SERVICES, | | | | | | CORE | | + +-------+ + + + | YEAST (LAB) | None | None /hpf | [facility] | | | | | | LABORATORY | | | | | | SERVICES, | | | | | | CORE | | + +-------+ + + + | SQUAMOUS | None | None /hpf | [facility] | | | EPITHELIAL | | | LABORATORY | | | | | | SERVICES, | | | | | | CORE | | + +-------+ + + + | MUCOUS | None | None /hpf | [facility] | | | | | | LABORATORY | | | | | | SERVICES, | | | | | | CORE | | + +-------+ + + + | TRICHOMONAS | None | None /hpf | [facility] | | | | | | LABORATORY | | | | | | SERVICES, | | | | | | CORE | | + +-------+ + + + | NON-SQUAMOU | None | None /hpf | [facility] | | | S EPITH | | | LABORATORY | | | | | | SERVICES, | | | | | | CORE | | + +-------+ + + + | HYALINE | 0 | 0 - 2 /lpf | [facility] | | | CASTS | | | LABORATORY | | | | | | SERVICES, | | | | | | CORE | | + +-------+ + + + | GRANULAR | 0 | 0 - 2 /lpf | [facility] | | | CASTS | | | LABORATORY | | | | | | SERVICES, | | | | | | CORE | | + +-------+ + + + | CELLULAR | 0 | <=0 /lpf | [facility] | | | CASTS | | | LABORATORY | | | | | | SERVICES, | | | | | | CORE | | + +-------+ + + + | TRIPLE P04 | None | None /hpf | [facility] | | | [facility] | | | LABORATORY | | | | | | SERVICES, | | | | | | CORE | | + +-------+ + + + | CALCIUM | None | None /hpf | [facility] | | | [facility] | | | LABORATORY | | | [place] | | | SERVICES, | | | | | | CORE | | + +-------+ + + + | URIC ACID | None | None /hpf | [facility] | | | [facility] | | | LABORATORY | | | | | | SERVICES, | | | | | | CORE | | + +-------+ + + + | AMORPHOUS | None | None /hpf | [facility] | | | [facility] | | | LABORATORY | | | | | | SERVICES, | | | | | | CORE | | + +-------+ + + + + + | Specimen | + + | Urine - Urine | | (substance) | + + + + + + + | Performing | Address | City/State/Zipcode | Phone Number | | Organization | | | | + + + + + | [facility] | [address] | [place] [address] | | | SERVICES, CORE | [address] | | | + + + + + UA DIPSTICK ONLY, POC RESULT (08/25/2015 3:00 AM PST) + + + + + + | Component | Value | Ref Range | Performed | Pathologist | | | | | At | Signature | + + + + + + | PH (UA | Negative | 5 - 8 | | | | DIP), POC | | | | | + + + + + + PRODUCT RETYPE,SCREEN,XM (08/25/2015 2:00 AM PST) + + + + + + | Component | Value | Ref Range | Performed | Pathologist | | | | | At | Signature | + + + + + + | PRODUCT | [id number] | | [facility] | | | IDENTIFIER | | | LABORATORY | | | | | | SERVICES, | | | | | | CORE | | + + + + + + | PRODUCT ABO | A | | [facility] | | | GROUP | | | LABORATORY | | | | | | SERVICES, | | | | | | CORE | | + + + + + + | PRODUCT RH | Positive | | [facility] | | | TYPE | | | LABORATORY | | | | | | SERVICES, | | | | | | CORE | | + + + + + + | PRODUCT | Negative | | [facility] | | | ANTIBODY | | | LABORATORY | | | SCREEN | | | SERVICES, | | | | | | CORE | | + + + + + + | PRODUCT | Compatible | | [facility] | | | CROSSMATCH | | | LABORATORY | | | | | | SERVICES, | | | | | | CORE | | + + + + + + | MA SPECIMEN | HPC, APHERESIS | | [facility] | | | | [...] + + + + + | [facility] | [address] | [place] [address] | | | SERVICES, CORE | [address] | | | + + + + + UA DIPSTICK ONLY, POC RESULT (08/25/2015 12:51 AM PST) + +-------+ + + + | Component | Value | Ref Range | Performed | Pathologist | | | | | At | Signature | + +-------+ + + + | BLOOD (UA | Neg | Negative | | | | DIP), POC | | | | | + +-------+ + + + UA DIPSTICK ONLY, POC RESULT (08/25/2015 12:31 AM PST) + + + + + + | Component | Value | Ref Range | Performed | Pathologist | | | | | At | Signature | + + + + + + | BLOOD (UA | negative | Negative | | | | DIP), POC | | | | | + + + + + + ANTIBODY SCREEN (08/25/2015 12:30 AM PST) + + + + + [...] [facility] | [address] | [place] [address] | | | SERVICES, | [address] | | | | TRANSFUSION MEDICINE | | | | + + + + + ABO & RH TYPE (08/25/2015 12:30 AM PST) + + + + + [...] | + + + + + | [facility] | [address] | [place] [address] | | | SERVICES, | [address] | | | | TRANSFUSION MEDICINE | | | | + + + + + RBC MORPHOLOGY (08/25/2015 12:28 AM PST) + + + + + [...] + + + + + + | MICROCYTOSI | 1+(10-25cells/HPF) | | [facility] | | [...] + + + + + | [facility] | [address] | [place] [address] | | | SERVICES, CORE | [address] | | | + + + + + MANUAL DIFFERENTIAL (08/25/2015 12:28 AM PST) + + + + + + | Component | Value | Ref Range | Performed | Pathologist | | | | | At | Signature | + + + + + + | NEUTROPHIL | 70.6 (H) | 50.0 - 70.0 % | [facility] | | | % | | | LABORATORY | | | | | | SERVICES, | | | | | | CORE | | + + + + + + | LYMPHOCYTE | 11.8 (L) | 18.0 - 42.0 % | [facility] | | | % | | | LABORATORY | | | | | | SERVICES, | | | | | | CORE | | + + + + + + | MONOCYTE % | 17.6 (H) | 3.5 - 9.0 % | [...] + + + + | NEUTROPHIL | 0.92 (L) | 1.80 - 7.70 | [facility] | | | # | | K/cu mm | LABORATORY | | | | | | SERVICES, | | | | | | CORE | | + + + + + + | LYMPHOCYTE | 0.15 (L) | 1.00 - 4.80 | [facility] | | | # | | K/cu mm | LABORATORY | | | | | | SERVICES, | | | | | | CORE | | + + + + + + | MONOCYTE # | 0.23 | 0.10 - 0.90 | [facility] | [...] [facility] | [address] | [place] [address] | | | SERVICES, CORE | [address] | | | + + + + + CBC AND AUTO DIFF (08/25/2015 12:28 AM PST) + + + + + + | Component | Value | Ref Range | Performed | Pathologist | | | | | At | Signature | + + + + + + | WHITE CELL | 1.31 (L) | 4.40 - 11.00 | [facility] | | | COUNT | | K/cu mm | LABORATORY | | | | | | SERVICES, | | | | | | CORE | | + + + + + + | RED CELL | 2.66 (L) | 4.50 - 6.00 | [facility] | | | COUNT | | M/cu mm | LABORATORY | | | | | | SERVICES, | | | | | | CORE | | + + + + + + | HEMOGLOBIN | 7.7 (L) | 13.5 - 17.5 | [facility] | | | | | g/dL | LABORATORY | | | | | | SERVICES, | | | | | | CORE | | + + + + + + | HEMATOCRIT | 21.3 (L) | 41.0 - 53.0 % | [facility] | | | | | | LABORATORY | | | | | | SERVICES, | | | | | | CORE | | + + + + + + | MCV | 80.1 | 80.0 - 96.0 fL | [facility] | | | | | | LABORATORY | | | | | | SERVICES, | | | | | | CORE | | + + + + + + | MCHC | 36.2 | 33.0 - 35.5 | [facility] | | | | | g/dL | LABORATORY | | | | | | SERVICES, | | | | | | CORE | | + + + + + + | RDW SD | 36.7 | 35.1 - 46.3 fL | [facility] | | | | | | LABORATORY | | | | | | SERVICES, | | | | | | CORE | | + + + + + + | PLATELET | 25 (L) | 150 - 400 K/cu | [facility] | | | COUNT | | mm | LABORATORY | | | | | | SERVICES, | | | | | | CORE | | + + + + + + | MPV | 10.2 | 9.7 - 12.3 fL | [facility] [...] [facility] | [address] | [place] [address] | | | SERVICES, CORE | [address] | | | + + + + + PHOSPHORUS, PLASMA (08/25/2015 12:28 AM PST) + +---------+ + + + | Component | Value | Ref Range | Performed | Pathologist | | | | | At | Signature | + +---------+ + + + | PHOSPHORUS, | 2.2 (L) | 2.4 - 4.7 mg/dL | [...] [facility] | [address] | [place] [address] | | | SERVICES, CORE | [address] | | | + + + + + MAGNESIUM, PLASMA (08/25/2015 12:28 AM PST) + +-------+ + + + [...] | + + + + + | [facility] | [address] | [place] [address] | | | SERVICES, CORE | [address] | | | + + + + + COMPLETE METABOLIC SET (NA,K,CL,CO2,BUN,CREAT,GLUC,CA,AST,ALT,BILI TOTAL,ALK PHOS,ALB,PROT TOTAL) (08/25/2015 12:28 AM PST) + + + + + + | Component | Value | Ref Range | Performed | Pathologist | | | | | At | Signature | + + + + + + | GLUCOSE, | 124 (H) | 60 - 99 mg/dL | [facility] | | | PLASMA | | | LABORATORY | | | (LAB) | | | SERVICES, | | | | | | CORE | | + + + + + + | BUN, PLASMA | 13 | 6 - 20 mg/dL | [facility] | | | (LAB) | | | LABORATORY | | | | | | SERVICES, | | | | | | CORE | | + + + + + + | CREATININE | 0.66 (L) | 0.70 - 1.30 | [facility] | | | PLASMA | | mg/dL | LABORATORY | | | (LAB) | | | SERVICES, | | | | | | CORE | | + + + + + + | EGFR | >60 | >60 mL/min | [facility] | | | - | | | LABORATORY | | | MEXICAN | | | SERVICES, | | | | | | CORE | | + + + + + + | EGFR NON | >60 | >60 mL/min | [facility] | | | -JOANNE | | | LABORATORY | | | RICAN | | | SERVICES, | | | | | | CORE | | + + + + + + | SODIUM, | 137 | 136 - 145 | [facility] | | | PLASMA | | mmol/L | LABORATORY | | | (LAB) | | | SERVICES, | | | | | | CORE | | + + + + + + | POTASSIUM, | 4.0 | 3.4 - 5.0 | [facility] | | | PLASMA | | mmol/L | LABORATORY | | | (LAB) | | | SERVICES, | | | | | | CORE | | + + + + + + | CHLORIDE, | 108 | 97 - 108 mmol/L | [facility] | | | PLASMA | | | LABORATORY | | | (LAB) | | | SERVICES, | | | | | | CORE | | + + + + + + | TOTAL CO2, | 21 | 21 - 32 mmol/L | [facility] | | | PLASMA | | | LABORATORY | | | (LAB) | | | SERVICES, | | | | | | CORE | | + + + + + + | CALCIUM, | 7.9 (L) | 8.6 - 10.2 | [facility] | | | PLASMA | | mg/dL | LABORATORY | | | (LAB) | | | SERVICES, | | | | | | CORE | | + + + + + + | BILIRUBIN | 0.4 [...] + + + + + + | ALBUMIN, | 3.3 (L) | 3.5 - 4.7 g/dL | [facility] | | | PLASMA | | | LABORATORY | | | (LAB) | | | SERVICES, | | | | | | CORE | | + + + + + + | ALK PHOS | 75 | 53 - 128 U/L | [facility] | | | | | | LABORATORY | | | | | | SERVICES, | | | | | | CORE | | + + + + + + | AST(SGOT) | 9 | <=41 U/L | [facility] | | | | | | LABORATORY | | | | | | SERVICES, | | | | | | CORE | | + + + + + + | ALT (SGPT) | 25 | <=60 U/L | [facility] | | | | | | LABORATORY | | | | | | SERVICES, | | | | | | CORE | | + + + + + + | ANION | 9 | 4 - 11 mmol/L | [facility] | | | GAP(ALB | | | LABORATORY | | | CORRECTED) | | | SERVICES, | | | | | | CORE | | + + + + + + | POTASSIUM | No Hemo | | [facility] | | | CMNT | | | LABORATORY | | | | | | SERVICES, | | | | | | CORE | | + + + + + + | BILI T CMNT | No Hemo | | [facility] | | | | | | LABORATORY | | | | | | SERVICES, | | | | | | CORE | | + + + + + + | AST CMNT | No Hemo | | [facility] | | | | | | LABORATORY | | | | | | SERVICES, | | | | | | CORE | | + + + + + + | ANION GAP | [...] | + + + + + | [facility] | [address] | [place] [address] | | | SERVICES, CORE | [address] | | | + + + + + CULTURE, BLOOD BACTI & YEAST YESSICA (08/25/2015 12:27 AM PST) + + + + + [...] Specimen | + + | Blood - Peripheral | | (qualifier value) | + + + + + + + | Performing | Address | City/State/Zipcode | Phone Number | | Organization | | | | + + + + + | [facility] | [address] | [place] [address] | | | SERVICES, CORE | [address] | | | + + + + + DONOR ENGRAFTMENT STORAGE, BLOOD (08/25/2015) + + + + + + | Component | Value | Ref Range | Performed | Pathologist | | | | | At | Signature | + + + + + + | DONOR | A Donor Engraftment | | [facility] | | | ENGRAFTMENT | Sample Storage, | | DIAGNOSTIC | | | STORAGE, | BloodSpecimen Type: ACD | | | | | BLOOD | Whole Blood; Date of | | LABORATORIE | | | | Transplant: 08/26/15; | | S | | | | DonorName/ID: [id number] | | | | | | [id number] | | | | | | indications: Donor | | | | | | engraftment storage | | | | | | Patient | | | | | | Results:641.0ug of DNA | | | | | | was isolated from the | | | | | | donor specimen. | | | | | | Upon your request, DNA | | | | | | was isolated from the | | | | | | named donor specimen | | | | | | using UBmatrixiagen column or | | | | | | salt precipitation | | | | | | method. The high | | | | | | molecular weight | | | | | | DNAisolated from the | | | | | | donor specimen is of | | | | | | sufficient quantity and | | | | | | quality forfuture use in | | | | | | monitoring the | | | | | | recipient's engraftment | | | | | | status after bonemarrow | | | | | | transplantation. | | | | | | Isolated DNA from the | | | | | | donor will be kept in | | | | | | [facility] | | | | | | Molecular Diagnostic | | | | | | Center in a | | | | | | mannerconsistent with it | | | | | | remaining medically | | | | | | viable for | | | | | | post-transplantengraftme | | | | | | nt monitoring. | | | | | | Thank you for your | | | | | | referral. If you have | | | | | | any questions about this | | | | | | report,please contact | | | | | | us at your convenience | | | | | | at . | | | | | | This test | | | | | | was developed and its | | | | | | performance | | | | | | characteristics | | | | | | determined bythe [facility] | | | | | [...] | | | | | | The [facility] | | | | | | DiagnosticsLaboratories | | | | | | is a fully licensed | | | | | | and/or accredited | | | | | | clinical laboratoryunder | | | | | | CLIA, CAP, and the | | | | | | State of [place]. | | | | | | Rendering | | | | | | Diagnostician: Janette | | | | | | GONZALEZ Velez | | | | | | LaboratoryElectronically | | | | | | Signed 08/31/2015 | | | | | | 4:42PM | | | | + + + [...] [address] | [place] [address] | | | DIAGNOSTIC | [address] | | | | LABORATORIES | | | | + + + + + UA DIPSTICK ONLY, POC RESULT (08/24/2015 11:56 AM PST) + +-------+ + + + | Component | Value | Ref Range | Performed | Pathologist | | | | | At | Signature | + +-------+ + + + | BLOOD (UA | neg | Negative | | | | DIP), POC | | | | | + +-------+ + + + SODIUM, PLASMA (08/24/2015 9:36 AM PST) + +-------+ + + + | Component | Value | Ref Range | Performed | Pathologist | | | | | At | Signature | + +-------+ + + + | SODIUM, | 137 | 136 - 145 | [facility] | [...] [facility] | [address] | [place] [address] | | | SERVICES, CORE | [address] | | | + + + + + PRODUCT - RED CELLS LEUKOREDUCED (08/24/2015 7:47 AM PST) + + + + + [...] + + + + | PRODUCT | [id number] | | [facility] | | | UNIT [...] + + + + | EXPIRATION | [id number] | | [facility] | | | DATE [...] + + + + | BLOOD | [id number] | | [facility] | | | PRODUCT [...] DEPARTMENT OF | [address] | [place] [address] | | | PATHOLOGY | [address] | | | + + + + + UA DIPSTICK ONLY, POC RESULT (08/24/2015 7:42 AM PST) + + + + + + | Component | Value | Ref Range | Performed | Pathologist | | | | | At | Signature | + + + + + + | BLOOD (UA | negative | Negative | | | | DIP), POC | | | | | + + + + + + UA DIPSTICK ONLY, POC RESULT (08/24/2015 6:00 AM PST) + +-------+ + + + | Component | Value | Ref Range | Performed | Pathologist | | | | | At | Signature | + +-------+ + + + | BLOOD (UA | neg | Negative | | | | DIP), POC | | | | | + +-------+ + + + URINE, MICROSCOPIC EXAM (08/24/2015 6:00 AM PST) + +-------+ + + + | Component | Value | Ref Range | Performed | Pathologist | | | | | At | Signature | + +-------+ + + + | RED CELLS | <1 | 0 - 3 /hpf | [facility] | | | | | | LABORATORY | | | | | | SERVICES, | | | | | | CORE | | + +-------+ + + + | WHITE CELLS | 1 | 0 - 5 /hpf | [facility] | | | | | | LABORATORY | | | | | | SERVICES, | | | | | | CORE | | + +-------+ + + + | BACTERIA | None | None /hpf | [facility] | | | | | | LABORATORY | | | | | | SERVICES, | | | | | | CORE | | + +-------+ + + + | YEAST (LAB) | None | None /hpf | [facility] | | | | | | LABORATORY | | | | | | SERVICES, | | | | | | CORE | | + +-------+ + + + | SQUAMOUS | None | None /hpf | [facility] | | | EPITHELIAL | | | LABORATORY | | | | | | SERVICES, | | | | | | CORE | | + +-------+ + + + | MUCOUS | None | None /hpf | [facility] | | | | | | LABORATORY | | | | | | SERVICES, | | | | | | CORE | | + +-------+ + + + | TRICHOMONAS | None | None /hpf | [facility] | | | | | | LABORATORY | | | | | | SERVICES, | | | | | | CORE | | + +-------+ + + + | NON-SQUAMOU | None | None /hpf | [facility] | | | S EPITH | | | LABORATORY | | | | | | SERVICES, | | | | | | CORE | | + +-------+ + + + | HYALINE | 0 | 0 - 2 /lpf | [facility] | | | CASTS | | | LABORATORY | | | | | | SERVICES, | | | | | | CORE | | + +-------+ + + + | GRANULAR | 0 | 0 - 2 /lpf | [facility] | | | CASTS | | | LABORATORY | | | | | | SERVICES, | | | | | | CORE | | + +-------+ + + + | CELLULAR | 0 | <=0 /lpf | [facility] | | | CASTS | | | LABORATORY | | | | | | SERVICES, | | | | | | CORE | | + +-------+ + + + | TRIPLE P04 | None | None /hpf | [facility] | | | CRYSTALS | | | LABORATORY | | | | | | SERVICES, | | | | | | CORE | | + +-------+ + + + | CALCIUM | None | None /hpf | [facility] | | | OXALATE | | | LABORATORY | | | [place] | | | SERVICES, | | | | | | CORE | | + +-------+ + + + | URIC ACID | None | None /hpf | [facility] | | | CRYSTALS | | | LABORATORY | | | | | | SERVICES, | | | | | | CORE | | + +-------+ + + + | AMORPHOUS | None | None /hpf | [facility] | | | CRYSTALS | | | LABORATORY | | | | | | SERVICES, | | | | | | CORE | | + +-------+ + + + + + | Specimen | + + | Urine - Urine | | (substance) | + + + + + + + | Performing | Address | City/State/Zipcode | Phone Number | | Organization | | | | + + + + + | [facility] | [address] | [place] [address] | | | SERVICES, CORE | [address] | | | + + + + + UA DIPSTICK ONLY, POC RESULT (08/24/2015 5:30 AM PST) + +-------+ + + + | Component | Value | Ref Range | Performed | Pathologist | | | | | At | Signature | + +-------+ + + + | BLOOD (UA | neg | Negative | | | | DIP), POC | | | | | + +-------+ + + + RBC MORPHOLOGY (08/24/2015 4:59 AM PST) + + | Specimen | + + | Blood - Blood | | (substance) | + + + + + + + | Performing | Address | City/State/Zipcode | Phone Number | | Organization | | | | + + + + + | [facility] | [address] | [place] [address] | | | SERVICES, CORE | [address] | | | + + + + + MANUAL DIFFERENTIAL (08/24/2015 4:59 AM PST) + + + + + + | Component | Value | Ref Range | Performed | Pathologist | | | | | At | Signature | + + + + + + | NEUTROPHIL | 89.6 (H) | 50.0 - 70.0 % | [facility] | | | % | | | LABORATORY | | | | | | SERVICES, | | | | | | CORE | | + + + + + + | LYMPHOCYTE | 6.9 (L) | 18.0 - 42.0 % | [facility] | | | % | | | LABORATORY | | | | | | SERVICES, | | | | | | CORE | | + + + + + + | MONOCYTE % | 3.5 | 3.5 - 9.0 % | [facility] [...] + + + + | NEUTROPHIL | 0.85 (L) | 1.80 - 7.70 | [facility] | | | # | | K/cu mm | LABORATORY | | | | | | SERVICES, | | | | | | CORE | | + + + + + + | LYMPHOCYTE | 0.07 (L) | 1.00 - 4.80 | [facility] | | | # | | K/cu mm | LABORATORY | | | | | | SERVICES, | | | | | | CORE | | + + + + + + | MONOCYTE # | 0.03 (L) | 0.10 - 0.90 | [facility] | [...] | + + + + + | [facility] | [address] | [place] [address] | | | SERVICES, CORE | [address] | | | + + + + + ANTIBODY SCREEN (08/24/2015 4:59 AM PST) + + + + + [...] [facility] | [address] | [place] [address] | | | SERVICES, | [address] | | | | TRANSFUSION MEDICINE | | | | + + + + + ABO & RH TYPE (08/24/2015 4:59 AM PST) + + + + + [...] [facility] | [address] | [place] [address] | | | SERVICES, | [address] | | | | TRANSFUSION MEDICINE | | | | + + + + + CULTURE, BLOOD BACTI & YEAST [facility] (08/24/2015 4:59 AM PST) + + + + + [...] Specimen | + + | Blood - Antecubital | | region structure | | (body structure) | + + + + + + + | Performing | Address | City/State/Zipcode | Phone Number | | Organization | | | | + + + + + | [facility] | [address] | [place] [address] | | | SERVICES, CORE | [address] | | | + + + + + CBC AND AUTO DIFF (08/24/2015 4:59 AM PST) + + + + + + | Component | Value | Ref Range | Performed | Pathologist | | | | | At | Signature | + + + + + + | WHITE CELL | 0.95 (L) | 4.40 - 11.00 | [facility] | | | COUNT | | K/cu mm | LABORATORY | | | | | | SERVICES, | | | | | | CORE | | + + + + + + | RED CELL | 2.64 (L) | 4.50 - 6.00 | [facility] | | | COUNT | | M/cu mm | LABORATORY | | | | | | SERVICES, | | | | | | CORE | | + + + + + + | HEMOGLOBIN | 7.6 (L) | 13.5 - 17.5 | [facility] | | | | | g/dL | LABORATORY | | | | | | SERVICES, | | | | | | CORE | | + + + + + + | HEMATOCRIT | 20.8 (L) | 41.0 - 53.0 % | [facility] | | | | | | LABORATORY | | | | | | SERVICES, | | | | | | CORE | | + + + + + + | MCV | 78.8 (L) | 80.0 - 96.0 fL | [facility] | | | | | | LABORATORY | | | | | | SERVICES, | | | | | | CORE | | + + + + + + | MCHC | 36.5 | 33.0 - 35.5 | [facility] | | | | | g/dL | LABORATORY | | | | | | SERVICES, | | | | | | CORE | | + + + + + + | RDW SD | 35.7 | 35.1 - 46.3 fL | [facility] | | | | | | LABORATORY | | | | | | SERVICES, | | | | | | CORE | | + + + + + + | PLATELET | 29 (L) | 150 - 400 K/cu | [facility] | | | COUNT | | mm | LABORATORY | | | | | | SERVICES, | | | | | | CORE | | + + + + + + | MPV | 11.1 | 9.7 - 12.3 fL | [facility] [...] | + + + + + | [facility] | [address] | [place] [address] | | | SERVICES, CORE | [address] | | | + + + + + PHOSPHORUS, PLASMA (08/24/2015 4:59 AM PST) + +-------+ + + + | Component | Value | Ref Range | Performed | Pathologist | | | | | At | Signature | + +-------+ + + + | PHOSPHORUS, | 2.6 | 2.4 - 4.7 mg/dL | [facility] [...] | + + + + + | [facility] | [address] | [place] [address] | | | SERVICES, CORE | [address] | | | + + + + + MAGNESIUM, PLASMA (08/24/2015 4:59 AM PST) + +-------+ + + + [...] [facility] | [address] | [place] [address] | | | SERVICES, CORE | [address] | | | + + + + + COMPLETE METABOLIC SET (NA,K,CL,CO2,BUN,CREAT,GLUC,CA,AST,ALT,BILI TOTAL,ALK PHOS,ALB,PROT TOTAL) (08/24/2015 4:59 AM PST) + + + + + + | Component | Value | Ref Range | Performed | Pathologist | | | | | At | Signature | + + + + + + | GLUCOSE, | 149 (H) | 60 - 99 mg/dL | [facility] | | | PLASMA | | | LABORATORY | | | (LAB) | | | SERVICES, | | | | | | CORE | | + + + + + + | BUN, PLASMA | 10 | 6 - 20 mg/dL | [facility] | | | (LAB) | | | LABORATORY | | | | | | SERVICES, | | | | | | CORE | | + + + + + + | CREATININE | 0.59 (L) | 0.70 - 1.30 | [facility] | | | PLASMA | | mg/dL | LABORATORY | | | (LAB) | | | SERVICES, | | | | | | CORE | | + + + + + + | EGFR | >60 | >60 mL/min | [facility] | | | - | | | LABORATORY | | | MEXICAN | | | SERVICES, | | | | | | CORE | | + + + + + + | EGFR NON | >60 | >60 mL/min | [facility] | | | -JOANNE | | | LABORATORY | | | RICAN | | | SERVICES, | | | | | | CORE | | + + + + + + | SODIUM, | 129 (L) | 136 - 145 | [facility] | | | PLASMA | | mmol/L | LABORATORY | | | (LAB) | | | SERVICES, | | | | | | CORE | | + + + + + + | POTASSIUM, | 4.2 | 3.4 - 5.0 | [facility] | | | PLASMA | | mmol/L | LABORATORY | | | (LAB) | | | SERVICES, | | | | | | CORE | | + + + + + + | CHLORIDE, | 99 | 97 - 108 mmol/L | [facility] | | | PLASMA | | | LABORATORY | | | (LAB) | | | SERVICES, | | | | | | CORE | | + + + + + + | TOTAL CO2, | 23 | 21 - 32 mmol/L | [facility] | | | PLASMA | | | LABORATORY | | | (LAB) | | | SERVICES, | | | | | | CORE | | + + + + + + | CALCIUM, | 8.5 (L) | 8.6 - 10.2 | [facility] | | | PLASMA | | mg/dL | LABORATORY | | | (LAB) | | | SERVICES, | | | | | | CORE | | + + + + + + | BILIRUBIN | 0.5 | 0.3 - 1.2 mg/dL | [facility] | | | TOTAL | | | LABORATORY | | | | | | SERVICES, | | | | | | CORE | | + + + + + + | TOTAL | 6.7 | 6.4 - 8.2 g/dL | [facility] | | | PROTEIN, | | | LABORATORY | | | PLASMA | | | SERVICES, | | | (LAB) | | | CORE | | + + + + + + | ALBUMIN, | 3.3 (L) | 3.5 - 4.7 g/dL | [facility] | | | PLASMA | | | LABORATORY | | | (LAB) | | | SERVICES, | | | | | | CORE | | + + + + + + | ALK PHOS | 80 | 53 - 128 U/L | [facility] | | | | | | LABORATORY | | | | | | SERVICES, | | | | | | CORE | | + + + + + + | AST(SGOT) | 11 | <=41 U/L | [facility] | | | | | | LABORATORY | | | | | | SERVICES, | | | | | | CORE | | + + + + + + | ALT (SGPT) | 26 | <=60 U/L | [facility] | | | | | | LABORATORY | | | | | | SERVICES, | | | | | | CORE | | + + + + + + | ANION | 8 | 4 - 11 mmol/L | [facility] | | | GAP(ALB | | | LABORATORY | | | CORRECTED) | | | SERVICES, | | | | | | CORE | | + + + + + + | POTASSIUM | No Hemo | | [facility] | | | CMNT | | | LABORATORY | | | | | | SERVICES, | | | | | | CORE | | + + + + + + | BILI T CMNT | No Hemo | | [facility] | | | | | | LABORATORY | | | | | | SERVICES, | | | | | | CORE | | + + + + + + | AST CMNT | No Hemo | | [facility] | | | | | | LABORATORY | | | | | | SERVICES, | | | | | | CORE | | + + + + + + | ANION GAP | [...] the MDRD equation recommended by the | [facility] | | National Kidney Disease Education Program. [...] + + + + + | [facility] | [address] | [place] [address] | | | SERVICES, [place] | [address] | | | + + + + + UA DIPSTICK ONLY, POC RESULT (08/24/2015 3:30 AM PST) + +-------+ + + + | Component | Value | Ref Range | Performed | Pathologist | | | | | At | Signature | + +-------+ + + + | BLOOD (UA | neg | Negative | | | | DIP), POC | | | | | + +-------+ + + + UA DIPSTICK ONLY, POC RESULT (08/24/2015 1:30 AM PST) + +-------+ + + + | Component | Value | Ref Range | Performed | Pathologist | | | | | At | Signature | + +-------+ + + + | BLOOD (UA | neg | Negative | | | | DIP), POC | | | | | + +-------+ + + + UA DIPSTICK ONLY, POC RESULT (08/23/2015 9:30 PM PST) + +-------+ + + + | Component | Value | Ref Range | Performed | Pathologist | | | | | At | Signature | + +-------+ + + + | BLOOD (UA | Neg | Negative | | | | DIP), POC | | | | | + +-------+ + + + UA DIPSTICK ONLY, POC RESULT (08/23/2015 6:30 PM PST) + + + + + + | Component | Value | Ref Range | Performed | Pathologist | | | | | At | Signature | + + + + + + | BLOOD (UA | Negative | Negative | | | | DIP), POC | | | | | + + + + + + UA DIPSTICK ONLY, POC RESULT (08/23/2015 5:22 PM PST) + + + + + + | Component | Value | Ref Range | Performed | Pathologist | | | | | At | Signature | + + + + + + | BLOOD (UA | Negative | Negative | | | | DIP), POC | | | | | + + + + + + UA DIPSTICK ONLY, POC RESULT (08/23/2015 3:13 PM PST) + + + + + + | Component | Value | Ref Range | Performed | Pathologist | | | | | At | Signature | + + + + + + | BLOOD (UA | Negative | Negative | | | | DIP), POC | | | | | + + + + + + UA DIPSTICK ONLY, POC RESULT (08/23/2015 12:53 PM PST) + + + + + + | Component | Value | Ref Range | Performed | Pathologist | | | | | At | Signature | + + + + + + | BLOOD (UA | Negative | Negative | | | | DIP), POC | | | | | + + + + + + UA DIPSTICK ONLY, POC RESULT (08/23/2015 11:33 AM PST) + + + + + + | Component | Value | Ref Range | Performed | Pathologist | | | | | At | Signature | + + + + + + | BLOOD (UA | Negative | Negative | | | | DIP), POC | | | | | + + + + + + URINE, MICROSCOPIC EXAM (08/23/2015 10:33 AM PST) + +---------+ + + + | Component | Value | Ref Range | Performed | Pathologist | | | | | At | Signature | + +---------+ + + + | RED CELLS | 0 | 0 - 3 /hpf | [facility] | | | | | | LABORATORY | | | | | | SERVICES, | | | | | | CORE | | + +---------+ + + + | WHITE CELLS | 1 | 0 - 5 /hpf | [facility] | | | | | | LABORATORY | | | | | | SERVICES, | | | | | | CORE | | + +---------+ + + + | BACTERIA | None | None /hpf | [facility] | | | | | | LABORATORY | | | | | | SERVICES, | | | | | | CORE | | + +---------+ + + + | YEAST (LAB) | None | None /hpf | [facility] | | | | | | LABORATORY | | | | | | SERVICES, | | | | | | CORE | | + +---------+ + + + | SQUAMOUS | Few (A) | None /hpf | [facility] | | | EPITHELIAL | | | LABORATORY | | | | | | SERVICES, | | | | | | CORE | | + +---------+ + + + | MUCOUS | None | None /hpf | [facility] | | | | | | LABORATORY | | | | | | SERVICES, | | | | | | CORE | | + +---------+ + + + | TRICHOMONAS | None | None /hpf | [facility] | | | | | | LABORATORY | | | | | | SERVICES, | | | | | | CORE | | + +---------+ + + + | NON-SQUAMOU | None | None /hpf | [facility] | | | S EPITH | | | LABORATORY | | | | | | SERVICES, | | | | | | CORE | | + +---------+ + + + | HYALINE | 0 | 0 - 2 /lpf | [facility] | | | CASTS | | | LABORATORY | | | | | | SERVICES, | | | | | | CORE | | + +---------+ + + + | GRANULAR | 0 | 0 - 2 /lpf | [facility] | | | CASTS | | | LABORATORY | | | | | | SERVICES, | | | | | | CORE | | + +---------+ + + + | CELLULAR | 0 | <=0 /lpf | [facility] | | | CASTS | | | LABORATORY | | | | | | SERVICES, | | | | | | CORE | | + +---------+ + + + | TRIPLE P04 | None | None /hpf | [facility] | | | CRYSTALS | | | LABORATORY | | | | | | SERVICES, | | | | | | CORE | | + +---------+ + + + | CALCIUM | None | None /hpf | [facility] | | | OXALATE | | | LABORATORY | | | [place] | | | SERVICES, | | | | | | CORE | | + +---------+ + + + | URIC ACID | None | None /hpf | [facility] | | | [facility] | | | LABORATORY | | | | | | SERVICES, | | | | | | CORE | | + +---------+ + + + | AMORPHOUS | None | None /hpf | [facility] | | | CRYSTALS | | | LABORATORY | | | | | | SERVICES, | | | | | | CORE | | + +---------+ + + + + + | Specimen | + + | Urine - Urine | | (substance) | + + + + + + + | Performing | Address | City/State/Zipcode | Phone Number | | Organization | | | | + + + + + | [facility] | [address] | [place] [address] | | | SERVICES, CORE | [address] | | | + + + + + MANUAL DIFFERENTIAL (08/22/2015 11:31 PM PST) + + + + + + | Component | Value | Ref Range | Performed | Pathologist | | | | | At | Signature | + + + + + + | NEUTROPHIL | 51.3 | 50.0 - 70.0 % | [facility] | | | % | | | LABORATORY | | | | | | SERVICES, | | | | | | CORE | | + + + + + + | LYMPHOCYTE | 15.9 (L) | 18.0 - 42.0 % | [facility] | | | % | | | LABORATORY | | | | | | SERVICES, | | | | | | CORE | | + + + + + + | MONOCYTE % | 31.9 (H) | 3.5 - 9.0 % | [...] + + + | BASOPHIL % | 0.9 | 0.0 - 2.0 [...] + + + + | NEUTROPHIL | 0.68 (L) | 1.80 - 7.70 | [facility] [...] + + + | MONOCYTE # | 0.42 | 0.10 - 0.90 | [facility] | [...] + + + | BASOPHIL # | 0.01 | 0.00 - 0.10 [...] + | [facility] | [address] | [place] [address] | | | SERVICES, CORE | [address] | | | + + + + + CBC AND AUTO DIFF (08/22/2015 11:31 PM PST) + + + + + + | Component | Value | Ref Range | Performed | Pathologist | | | | | At | Signature | + + + + + + | WHITE CELL | 1.32 (L) | 4.40 - 11.00 | [facility] [...] + + + + | HEMATOCRIT | 22.5 (L) | 41.0 - 53.0 % | [facility] | | | | | | LABORATORY | | | | | | SERVICES, | | | | | | CORE | | + + + + + + | MCV | 82.1 | 80.0 - 96.0 fL | [facility] | | | | | | LABORATORY | | | | | | SERVICES, | | | | | | CORE | | + + + + + + | MCHC | 34.7 | 33.0 - 35.5 | [facility] | | | | | g/dL | LABORATORY | | | | | | SERVICES, | | | | | | CORE | | + + + + + + | RDW SD | 37.5 | 35.1 - 46.3 fL | [facility] | | | | | | LABORATORY | | | | | | SERVICES, | | | | | | CORE | | + + + + + + | PLATELET | 43 (L) | 150 - 400 K/cu | [facility] | | | COUNT | | mm | LABORATORY | | | | | | SERVICES, | | | | | | CORE | | + + + + + + | MPV | 10.0 | 9.7 - 12.3 fL | [facility] [...] [facility] | [address] | [place] [address] | | | SERVICES, CORE | [address] | | | + + + + + LDH TOTAL, PLASMA (08/22/2015 11:31 PM PST) + +---------+ + + + | Component | Value | Ref Range | Performed | Pathologist | | | | | At | Signature | + +---------+ + + + | LD TOTAL, | 145 | <=250 U/L | [facility] | | [...] | + + + + + | [facility] | [address] | [place] [address] | | | SERVICES, CORE | [address] | | | + + + + + ASPERGILLUS GALACTOMANNAN ANTIGEN, SERUM (08/22/2015 11:31 PM PST) + + + + + [...] + + + | ASP GAL | 0.13 | <=0.49 Index | [facility] | | [...] + + + + + | [facility] | [address] | [place] [address] | | | SERVICES, SPECIAL | [address] | | | | IMM + COAG | | | | + + + + + CMV PCR QUANTITATION, PLASMA (08/22/2015 11:31 PM PST) + + + + + + | Component | Value | Ref Range | Performed | Pathologist | | | | | At | Signature | + + + + + + | CMV DNA | Undetected | Undetected, | [facility] | | | QUANTITATIO | | Undetected [...] may not reflect true | [facility] | | biological changes and [...] | | | characteristics determined by the [facility] | | | Molecular Diagnostic Center. It has not been cleared or approved by | | | the Food and Drug Administration. FDA approval is not required for | | | clinical use of this test, and therefore validation was done as | | | required under the requirements of the Clinical Laboratory Improvement | | | Act of 1988. The [facility] Molecular | | | Diagnostic Center is a fully licensed and/or accredited clinical | | | laboratory under [place], [place], and the State [facility]. | | + + + + + + + + | Performing | Address | City/State/Zipcode | Phone Number | | Organization | | | | + + + + + | [facility] | [address] | [place] [address] | | | DIAGNOSTIC | [address] | | | | LABORATORIES | | | | + + + + + INR (08/22/2015 11:31 PM PST) + +-------+ + + + | Component | Value | Ref Range | Performed | Pathologist | | | | | At | Signature | + +-------+ + + + | INR | 1.05 | 0.90 - 1.20 INR | [facility] [...] | + + + + + | [facility] | [address] | [place] [address] | | | KOLE, INDRA | [address] | | | + + + + + PHOSPHORUS, PLASMA (08/22/2015 11:31 PM PST) + +-------+ + + + | Component | Value | Ref Range | Performed | Pathologist | | | | | At | Signature | + +-------+ + + + | PHOSPHORUS, | 4.3 | 2.4 - 4.7 mg/dL | [facility] [...] [facility] | [address] | [place] [address] | | | SERVICES, CORE | [address] | | | + + + + + MAGNESIUM, PLASMA (08/22/2015 11:31 PM PST) + +-------+ + + + [...] + + | [facility] | [address] | [place] [address] | | | SERVICES, CORE | [address] | | | + + + + + COMPLETE METABOLIC SET (NA,K,CL,CO2,BUN,CREAT,GLUC,CA,AST,ALT,BILI TOTAL,ALK PHOS,ALB,PROT TOTAL) (08/22/2015 11:31 PM PST) + +---------+ + + + [...] +---------+ + + + | CREATININE | 0.88 | 0.70 - 1.30 | [facility] | | | PLASMA | | mg/dL | LABORATORY | | | (LAB) | | | SERVICES, | | | | | | CORE | | + +---------+ + + + | EGFR | >60 | >60 mL/min | [facility] | | | - | | | LABORATORY | | | MEXICAN | | | SERVICES, | | | | | | CORE | | + +---------+ + + + | EGFR NON | >60 | >60 mL/min | [facility] | | | -JOANNE | | | LABORATORY | | | RICAN | | | SERVICES, | | | | | | CORE | | + +---------+ + + + | SODIUM, | 137 | 136 - 145 | [facility] | [...] +---------+ + + + | CALCIUM, | 8.7 | 8.6 - 10.2 | [facility] | [...] +---------+ + + + | AST(SGOT) | 13 | <=41 U/L | [facility] | | | | | | LABORATORY | | | | | | SERVICES, | | | | | | CORE | | + +---------+ + + + | ALT (SGPT) | 32 | <=60 U/L | [facility] | | [...] the MDRD equation recommended by the | [facility] | | National Kidney Disease Education Program. [...] [facility] | [address] | [place] [address] | | | SERVICES, CORE | [address] | | | + + + + + URIC ACID, PLASMA (08/22/2015 11:31 PM PST) + +---------+ + + + | Component | Value | Ref Range | Performed | Pathologist | | | | | At | Signature | + +---------+ + + + | URIC ACID, | 2.2 (L) | 3.7 - 8.0 mg/dL | [...] [facility] | [address] | [place] [address] | | | SERVICES, CORE | [address] | | | + + + + + VANCOMYCIN, TROUGH (08/22/2015 5:21 PM PST) + +-------+ + + + | Component | Value | Ref Range | Performed | Pathologist | | | | | At | Signature | + +-------+ + + + | VANCOMYCIN, | 14.7 | 5.0 - 15.0 | [facility] | | | TROUGH | | ug/mL | LABORATORY | | | | | | SERVICES, | | | | | | CORE | | + +-------+ + + + + + | Specimen | + + | Blood - Blood | | (substance) | + + + + + | Narrative | Performed At | + + + | Please draw a vancomycin trough prior to the 1730 dose on 08/22/15. | [facility] | | Thank you | LABORATORY | | | SERVICES, CORE | + + + + + + + + | Performing | Address | City/State/Zipcode | Phone Number | | Organization | | | | + + + + + | [facility] | [address] | [place] [address] | | | SERVICES, INDRA | [address] | | | + + + + + PROCEDURE NOTE (08/22/2015 3:48 PM PST) + + + | Narrative | Performed At | + + + | Chloe Antonio RN 08/22/2015 3:48 PM Midline | | | Insertion Documentation Note Today's date: 08/22/2015 Start | | | Time: At 1500, prior to the beginning of the procedure, the team | | | paused to verify the patient's identity, the procedure to be | | | performed and the correct side/site. The patient was positioned | | | appropriately. Any safety precautions were addressed. Patient | | | Location (Unit/Room#): 14k #13 Indication for Midline: Access | | | Procedure Details: Masks were worn by all members in the room | | | where the procedure was performed. Prior to initiating the | | | procedure, the practitioner thoroughly washed their hands and donned | | | sterile gloves. The procedure was performed using sterile barrier | | | precautions. An ultrasound was used for pre-procedure | | | identification of the patient's vascular anatomy. Venipuncture was | | | performed under direct ultrasound guidance. The arm was prepped | | | and draped in the procedural sterile fashion and the sterile field | | | was maintained at all times. The insertion site was prepped with | | | Farooq cloth and Chloraprep. Anesthesia was obtained with 1 mL of | | | buffered 1% Lidocaine. Midline Catheter Insertion: The left | | | Brachial vein was cannulated with dark red, non-pulsatile blood | | | return. A 18g 8cm PowerGlide catheter was placed on the 2 attempt. | | | Midline lot number [id number]; there was positive blood return. | | | The catheter was flushed with 20 mL of Normal Saline, an | | | antimicrobial disc was placed at the insertion site and a catheter | | | securement device was utilized. Complications: Unable to thread | | | to left basilic vein. Accessed left brachial without roblem. | | | Placed by:Chloe Antonio RN, BSN,PICC/ IV Therapy | | + + + CULTURE, CATH TIP BACTI (08/22/2015 12:25 PM PST) + + | Specimen | + + | Catheter tip - | | Central line | + + + + + | Narrative | Performed At | + + + | Culture Report: No growth | [facility] | | | [place] | + + + + + + + + | Performing | Address | City/State/Zipcode | Phone Number | | Organization | | | | + + + + + | [facility] | [address] | [place] [address] | | | [place] | | | | + + + + + CBC AND AUTO DIFF (08/22/2015 12:42 AM PST) + + + + + + | Component | Value | Ref Range | Performed | Pathologist | | | | | At | Signature | + + + + + + | WHITE CELL | 1.32 (L) | 4.40 - 11.00 | [facility] | | | COUNT | | K/cu mm | LABORATORY | | | | | | SERVICES, | | | | | | CORE | | + + + + + + | RED CELL | 2.67 (L) | 4.50 - 6.00 | [facility] | | | COUNT | | M/cu mm | LABORATORY | | | | | | SERVICES, | | | | | | CORE | | + + + + + + | HEMOGLOBIN | 7.7 (L) | 13.5 - 17.5 | [facility] | | | | | g/dL | LABORATORY | | | | | | SERVICES, | | | | | | CORE | | + + + + + + | HEMATOCRIT | 21.8 (L) | 41.0 - 53.0 % | [facility] | | | | | | LABORATORY | | | | | | SERVICES, | | | | | | CORE | | + + + + + + | MCV | 81.6 | 80.0 - 96.0 fL | [facility] [...] + + + | RDW SD | 37.4 | 35.1 - 46.3 fL | [facility] | | | | | | LABORATORY | | | | | | SERVICES, | | | | | | CORE | | + + + + + + | PLATELET | 44 (L) | 150 - 400 K/cu | [...] + + + + | NEUTROPHIL | 19.7 (L) | 50.0 - 70.0 % | [facility] | | | % | | | LABORATORY | | | | | | SERVICES, | | | | | | CORE | | + + + + + + | LYMPHOCYTE | 22.7 | 18.0 - 42.0 % | [facility] | | | % | | | LABORATORY | | | | | | SERVICES, | | | | | | CORE | | + + + + + + | MONOCYTE % | 56.8 (H) | 3.5 - 9.0 % | [...] + + + | BASO % | 0.8 | 0.0 - 2.0 % [...] + + + + | NEUTROPHIL | 0.26 (L) | 1.80 - 7.70 | [facility] | | | # | | K/cu mm | LABORATORY | | | | | | SERVICES, | | | | | | CORE | | + + + + + + | LYMPHOCYTE | 0.30 (L) | 1.00 - 4.80 | [facility] | | | # | | K/cu mm | LABORATORY | | | | | | SERVICES, | | | | | | CORE | | + + + + + + | MONOCYTE # | 0.75 | 0.10 - 0.90 | [facility] | [...] | + + + + + | [facility] | [address] | [place] [address] | | | SERVICES, CORE | [address] | | | + + + + + PHOSPHORUS, PLASMA (08/22/2015 12:42 AM PST) + +-------+ + + + [...] [facility] | [address] | [place] [address] | | | SERVICES, CORE | [address] | | | + + + + + MAGNESIUM, PLASMA (08/22/2015 12:42 AM PST) + +-------+ + + + [...] | + + + + + | [facility] | [address] | [place] [address] | | | SERVICES, CORE | [address] | | | + + + + + COMPLETE METABOLIC SET (NA,K,CL,CO2,BUN,CREAT,GLUC,CA,AST,ALT,BILI TOTAL,ALK PHOS,ALB,PROT TOTAL) (08/22/2015 12:42 AM PST) + +---------+ + + + [...] +---------+ + + + | CREATININE | 0.92 | 0.70 - 1.30 | [facility] | | | PLASMA | | mg/dL | LABORATORY | | | (LAB) | | | SERVICES, | | | | | | CORE | | + +---------+ + + + | EGFR | >60 | >60 mL/min | [facility] | | | - | | | LABORATORY | | | MEXICAN | | | SERVICES, | | | | | | CORE | | + +---------+ + + + | EGFR NON | >60 | >60 mL/min | [facility] | | | -JOANNE | | | LABORATORY | | | RICAN | | | SERVICES, | | | | | | CORE | | + +---------+ + + + | SODIUM, | 136 | 136 - 145 | [facility] | | | PLASMA | | mmol/L | LABORATORY | | | (LAB) | | | SERVICES, | | | | | | CORE | | + +---------+ + + + | POTASSIUM, | 3.8 | 3.4 - 5.0 | [facility] | [...] + | TOTAL CO2, | 25 | 21 - 32 mmol/L | [facility] | | | PLASMA | | | LABORATORY | | | (LAB) | | | SERVICES, | | | | | | CORE | | + +---------+ + + + | CALCIUM, | 8.7 | 8.6 - 10.2 | [facility] | [...] + + + | ALT (SGPT) | 34 | <=60 U/L | [facility] | | [...] | + + + + + | [facility] | [address] | [place] [address] | | | SERVICES, CORE | [address] | | | + + + + + CULTURE, BLOOD BACTI & YEAST YESSICA (08/22/2015 12:00 AM PST) + + + + + [...] Specimen | + + | Blood - Peripheral | | (qualifier value) | + + + + + + + | Performing | Address | City/State/Zipcode | Phone Number | | Organization | | | | + + + + + | [facility] | [address] | [place] [address] | | | SERVICES, CORE | [address] | | | + + + + + PRODUCT - RED CELLS LEUKOREDUCED (08/21/2015 1:31 AM PST) + + + + + [...] + + + + | PRODUCT | [id number] | | [facility] | | | UNIT [...] + + + + | EXPIRATION | [id number] | | [facility] | | | DATE [...] + + + + | BLOOD | [id number] | | [facility] | | | PRODUCT [...] DEPARTMENT OF | [address] | [place] [address] | | | PATHOLOGY | [address] | | | + + + + + MANUAL DIFFERENTIAL (08/20/2015 11:03 PM PST) + + + + + + | Component | Value | Ref Range | Performed | Pathologist | | | | | At | Signature | + + + + + + | NEUTROPHIL | 52.2 | 50.0 - 70.0 % | [facility] | | | % | | | LABORATORY | | | | | | SERVICES, | | | | | | CORE | | + + + + + + | LYMPHOCYTE | 16.8 (L) | 18.0 - 42.0 % | [facility] | | | % | | | LABORATORY | | | | | | SERVICES, | | | | | | CORE | | + + + + + + | MONOCYTE % | 28.3 (H) | 3.5 - 9.0 % | [...] + + + + | REACTIVE | 1.8 | 0.0 - 10.0 % | [facility] | | | LYMPHS % | | | LABORATORY | | | | | | SERVICES, | | | | | | CORE | | + + + + + + | NEUTROPHIL | 0.63 (L) | 1.80 - 7.70 | [facility] | | | # | | K/cu mm | LABORATORY | | | | | | SERVICES, | | | | | | CORE | | + + + + + + | LYMPHOCYTE | 0.20 (L) | 1.00 - 4.80 | [facility] | | | # | | K/cu mm | LABORATORY | | | | | | SERVICES, | | | | | | CORE | | + + + + + + | MONOCYTE # | 0.34 | 0.10 - 0.90 | [facility] | [...] + + + + | IG# | 0.01 | 0.00 - 0.03 | [facility] | | | | | K/cu mm | LABORATORY | | | | | | SERVICES, | | | | | | CORE | | + + + + + + | REACTIVE | 0.02 | K/cu mm | [facility] | | [...] | + + + + + | [facility] | [address] | [place] [address] | | | SERVICES, CORE | [address] | | | + + + + + CBC AND AUTO DIFF (08/20/2015 11:03 PM PST) + + + + + + | Component | Value | Ref Range | Performed | Pathologist | | | | | At | Signature | + + + + + + | WHITE CELL | 1.20 (L) | 4.40 - 11.00 | [facility] | | | COUNT | | K/cu mm | LABORATORY | | | | | | SERVICES, | | | | | | CORE | | + + + + + + | RED CELL | 2.52 (L) | 4.50 - 6.00 | [facility] | | | COUNT | | M/cu mm | LABORATORY | | | | | | SERVICES, | | | | | | CORE | | + + + + + + | HEMOGLOBIN | 7.2 (L) | 13.5 - 17.5 | [facility] | | | | | g/dL | LABORATORY | | | | | | SERVICES, | | | | | | CORE | | + + + + + + | HEMATOCRIT | 20.6 (L) | 41.0 - 53.0 % | [facility] | | | | | | LABORATORY | | | | | | SERVICES, | | | | | | CORE | | + + + + + + | MCV | 81.7 | 80.0 - 96.0 fL | [facility] [...] + + + | RDW SD | 36.9 | 35.1 - 46.3 fL | [facility] | | | | | | LABORATORY | | | | | | SERVICES, | | | | | | CORE | | + + + + + + | PLATELET | 61 (L) | 150 - 400 K/cu | [facility] | | | COUNT | | mm | LABORATORY | | | | | | SERVICES, | | | | | | CORE | | + + + + + + | MPV | 10.4 | 9.7 - 12.3 fL | [facility] [...] [facility] | [address] | [place] [address] | | | SERVICES, CORE | [address] | | | + + + + + PHOSPHORUS, PLASMA (08/20/2015 11:03 PM PST) + +-------+ + + + [...] | + + + + + | [facility] | [address] | [place] [address] | | | SERVICES, CORE | [address] | | | + + + + + MAGNESIUM, PLASMA (08/20/2015 11:03 PM PST) + +-------+ + + + [...] [facility] | [address] | [place] [address] | | | INDRA SHARIF | [address] | | | + + + + + COMPLETE METABOLIC SET (NA,K,CL,CO2,BUN,CREAT,GLUC,CA,AST,ALT,BILI TOTAL,ALK PHOS,ALB,PROT TOTAL) (08/20/2015 11:03 PM PST) + +---------+ + + + [...] +---------+ + + + | CREATININE | 0.96 | 0.70 - 1.30 | [facility] | | | PLASMA | | mg/dL | LABORATORY | | | (LAB) | | | SERVICES, | | | | | | CORE | | + +---------+ + + + | EGFR | >60 | >60 mL/min | [facility] | | | - | | | LABORATORY | | | MEXICAN | | | SERVICES, | | | [...] +---------+ + + + | CALCIUM, | 8.7 | 8.6 - 10.2 | [facility] | [...] + + + | ALK PHOS | 75 | 53 - 128 U/L | [facility] | | | | | | LABORATORY | | | | | | SERVICES, | | | | | | CORE | | + +---------+ + + + | AST(SGOT) | 13 | <=41 U/L | [facility] | | | | | | LABORATORY | | | | | | SERVICES, | | | | | | CORE | | + +---------+ + + + | ALT (SGPT) | 35 | <=60 U/L | [facility] | | [...] + + + | ANION GAP | 6 | mmol/L | [facility] | | | [...] + + + + + | [facility] | [address] | [place] [address] | | | SERVICES, INDRA | [address] | | | + + + + + MANUAL DIFFERENTIAL (08/19/2015 11:45 PM PST) + + + + + + | Component | Value | Ref Range | Performed | Pathologist | | | | | At | Signature | + + + + + + | NEUTROPHIL% | 53.0 | 50.0 - 70.0 % | [facility] | | | | | | LABORATORY | | | | | | SERVICES, | | | | | | CORE | | + + + + + + | LYMPHOCYTE% | 17.0 (L) | 18.0 - 42.0 % | [facility] | | | | | | LABORATORY | | | | | | SERVICES, | | | | | | CORE | | + + + + + + | MONOCYTE % | 30.0 (H) | 3.5 - 9.0 % | [...] + + + + | NEUTROPHIL | 0.83 (L) | 1.80 - 7.70 | [facility] | | | # | | K/cu mm | LABORATORY | | | | | | SERVICES, | | | | | | CORE | | + + + + + + | LYMPHOCYTE# | 0.27 (L) | 1.00 - 4.80 | [facility] | | | | | K/cu mm | LABORATORY | | | | | | SERVICES, | | | | | | CORE | | + + + + + + | MONOCYTE # | 0.47 | 0.10 - 0.90 | [facility] | [...] + + + + | ANISOCYTOSI | 2+(25-100cells/HPF) | | [facility] | | | S [...] Granulocytes (IG) include metamyelocytes, myelocytes and | [facility] | | promyelocytes. Bands are not included in the IG count. Bands are | LABORATORY | | included in the neutrophil count except in neonates <=60 days old | SERVICES, CORE | | where bands are reported as part of the manual differential. | | + + + + + + + + | Performing | Address | City/State/Zipcode | Phone Number | | Organization | | | | + + + + + | [facility] | [address] | [place] [address] | | | SERVICES, CORE | [address] | | | + + + + + CBC AND AUTO DIFF (08/19/2015 11:45 PM PST) + + + + + + | Component | Value | Ref Range | Performed | Pathologist | | | | | At | Signature | + + + + + + | WHITE CELL | 1.57 (L) | 4.40 - 11.00 | [facility] | | | COUNT | | K/cu mm | LABORATORY | | | | | | SERVICES, | | | | | | CORE | | + + + + + + | RED CELL | 2.64 (L) | 4.50 - 6.00 | [facility] | | | COUNT | | M/cu mm | LABORATORY | | | | | | SERVICES, | | | | | | CORE | | + + + + + + | HEMOGLOBIN | 7.5 (L) | 13.5 - 17.5 | [facility] | | | | | g/dL | LABORATORY | | | | | | SERVICES, | | | | | | CORE | | + + + + + + | HEMATOCRIT | 21.6 (L) | 41.0 - 53.0 % | [facility] | | | | | | LABORATORY | | | | | | SERVICES, | | | | | | CORE | | + + + + + + | MCV | 81.8 | 80.0 - 96.0 fL | [facility] | | | | | | LABORATORY | | | | | | SERVICES, | | | | | | CORE | | + + + + + + | MCHC | 34.7 | 33.0 - 35.5 | [facility] | | | | | g/dL | LABORATORY | | | | | | SERVICES, | | | | | | CORE | | + + + + + + | RDW SD | 37.9 | 35.1 - 46.3 fL | [facility] | | | | | | LABORATORY | | | | | | SERVICES, | | | | | | CORE | | + + + + + + | PLATELET | 80 (L) | 150 - 400 K/cu | [facility] | | | COUNT | | mm | LABORATORY | | | | | | SERVICES, | | | | | | CORE | | + + + + + + | MPV | 10.3 | 9.7 - 12.3 fL | [facility] [...] [facility] | [address] | [place] [address] | | | SERVICES, CORE | [address] | | | + + + + + PHOSPHORUS, PLASMA (08/19/2015 11:45 PM PST) + +---------+ + + + | Component | Value | Ref Range | Performed | Pathologist | | | | | At | Signature | + +---------+ + + + | PHOSPHORUS, | 4.8 (H) | 2.4 - 4.7 mg/dL | [...] | + + + + + | [facility] | [address] | [place] [address] | | | SERVICES, CORE | [address] | | | + + + + + MAGNESIUM, PLASMA (08/19/2015 11:45 PM PST) + +-------+ + + + | Component | Value | Ref Range | Performed | Pathologist | | | | | At | Signature | + +-------+ + + + | MAGNESIUM,P | 2.0 | 1.8 - 2.5 mg/dL | [facility] | | | [facility] | | | LABORATORY | | | [...] [facility] | [address] | [place] [address] | | | INDRA SHARIF | [address] | | | + + + + + COMPLETE METABOLIC SET (NA,K,CL,CO2,BUN,CREAT,GLUC,CA,AST,ALT,BILI TOTAL,ALK PHOS,ALB,PROT TOTAL) (08/19/2015 11:45 PM PST) + +---------+ + + + | Component | Value | Ref Range | Performed | Pathologist | | | | | At | Signature | + +---------+ + + + | GLUCOSE, | 101 (H) | 60 - 99 mg/dL | [facility] | | | PLASMA | | | LABORATORY | | | (LAB) | | | SERVICES, | | | | | | CORE | | + +---------+ + + + | BUN, PLASMA | 10 | 6 - 20 mg/dL | [facility] | | | (LAB) | | | LABORATORY | | | | | | SERVICES, | | | | | | CORE | | + +---------+ + + + | CREATININE | 1.07 | 0.70 - 1.30 | [facility] | | | PLASMA | | mg/dL | LABORATORY | | | (LAB) | | | SERVICES, | | | | | | CORE | | + +---------+ + + + | EGFR | >60 | >60 mL/min | [facility] | | | - | | | LABORATORY | | | [place]ICAN | | | SERVICES, | | | | | | CORE | | + +---------+ + + + | EGFR NON | >60 | >60 mL/min | [facility] | | | -JOANNE | | | LABORATORY | | | RICAN | | | SERVICES, | | | | | | CORE | | + +---------+ + + + | SODIUM, | 137 | 136 - 145 | [facility] | | | PLASMA | | mmol/L | LABORATORY | | | (LAB) | | | SERVICES, | | | | | | CORE | | + +---------+ + + + | POTASSIUM, | 4.1 | 3.4 - 5.0 | [facility] | [...] +---------+ + + + | CALCIUM, | 8.5 (L) | 8.6 - 10.2 | [facility] | [...] +---------+ + + + | ALBUMIN, | 4.2 | 3.5 - 4.7 g/dL | [facility] | | | PLASMA | | | LABORATORY | | | (LAB) | | | SERVICES, | | | | | | CORE | | + +---------+ + + + | ALK PHOS | 76 | 53 - 128 U/L | [facility] | | | | | | LABORATORY | | | | | | SERVICES, | | | | | | CORE | | + +---------+ + + + | AST(SGOT) | 18 | <=41 U/L | [facility] | | | | | | LABORATORY | | | | | | SERVICES, | | | | | | CORE | | + +---------+ + + + | ALT (SGPT) | 39 | <=60 U/L | [facility] | | [...] + + + | ANION GAP | 6 | mmol/L | [facility] | | | [...] | + + + + + | [facility] | [address] | [place] [address] | | | SERVICES, INDRA | [address] | | | + + + + + BUSULFAN PK, ORAL (08/19/2015 10:10 AM PST) + +-------+ + + + | Component | Value | Ref Range | Performed | Pathologist | | | | | At | Signature | + +-------+ + + + | CONC AT | | | [facility] | | | STEADY | | | REFERENCE | | | STATE (CSS) | | | LAB | | + +-------+ + + + | CSS TARGET | | | [facility] | | | | | | REFERENCE | | | | | | LAB | | + +-------+ + + + | CSS EST AVG | | ng/mL | [facility] | | | EXPOSURE | | | REFERENCE | | | | | | LAB | | + +-------+ + + + | AUC AREA | | | [facility] | | | UNDER CURVE | | | REFERENCE | | | | | | LAB | | + +-------+ + + + | AUC TARGET | | | [facility] | | | | | | REFERENCE | | | | | | LAB | | + +-------+ + + + | AUC EST AVG | | uMol x Min | [facility] | | | EXPOSURE | | | REFERENCE | | | | | | LAB | | + +-------+ + + + | CLEARANCE | | | [facility] | | | RATE (BSS) | | | REFERENCE | | | | | | LAB | | + +-------+ + + + | REC DOSING | | | [facility] | | | TYPE | | | REFERENCE | | | | | | LAB | | + +-------+ + + + | REC DOSE | | | [facility] | | | | | | REFERENCE | | | | | | LAB | | + +-------+ + + + | DOSE CHANGE | | | [facility] | | | | | | REFERENCE | | | | | | LAB | | + +-------+ + + + | DOSE REC | | | [facility] | | | STARTS AT | | | REFERENCE | | | DOSE # | | | LAB | | + +-------+ + + + | DOSE REC | | | [facility] | | | END AT DOSE | | | REFERENCE | | | # | | | LAB | | + +-------+ + + + | BUSULFAN | | | [facility] | | | COMMENT | | | REFERENCE | | | | | | LAB | | + +-------+ + + + + + | Specimen | + + | Blood - Blood | + + + + + | Narrative | Performed At | + + + | See initial timepoint for results. Test performed by: Mary Alice | [facility] | | [facility] [address] [address] [place], [place] | REFERENCE LAB | | [address] | | + + + + + + + + | Performing | Address | City/State/Zipcode | Phone Number | | Organization | | | | + + + + + | [facility] | | | | + + + + + | [facility] | see below | | | + + + + + BUSULFAN PK, ORAL (08/19/2015 9:08 AM PST) + +-------+ + + + | Component | Value | Ref Range | Performed | Pathologist | | | | | At | Signature | + +-------+ + + + | CONC AT | | | [facility] | | | STEADY | | | REFERENCE | | | STATE (CSS) | | | LAB | | + +-------+ + + + | CSS TARGET | | | [facility] | | | | | | REFERENCE | | | | | | LAB | | + +-------+ + + + | CSS EST AVG | | ng/mL | [facility] | | | EXPOSURE | | | REFERENCE | | | | | | LAB | | + +-------+ + + + | AUC AREA | | | [facility] | | | UNDER CURVE | | | REFERENCE | | | | | | LAB | | + +-------+ + + + | AUC TARGET | | | [facility] | | | | | | REFERENCE | | | | | | LAB | | + +-------+ + + + | AUC EST AVG | | uMol x Min | [facility] | | | EXPOSURE | | | REFERENCE | | | | | | LAB | | + +-------+ + + + | CLEARANCE | | | [facility] | | | RATE (BSS) | | | REFERENCE | | | | | | LAB | | + +-------+ + + + | REC DOSING | | | [facility] | | | TYPE | | | REFERENCE | | | | | | LAB | | + +-------+ + + + | REC DOSE | | | [facility] | | | | | | REFERENCE | | | | | | LAB | | + +-------+ + + + | DOSE CHANGE | | | [facility] | | | | | | REFERENCE | | | | | | LAB | | + +-------+ + + + | DOSE REC | | | [facility] | | | STARTS AT | | | REFERENCE | | | DOSE # | | | LAB | | + +-------+ + + + | DOSE REC | | | [facility] | | | END AT DOSE | | | REFERENCE | | | # | | | LAB | | + +-------+ + + + | BUSULFAN | | | [facility] | | | COMMENT | | | REFERENCE | | | | | | LAB | | + +-------+ + + + + + | Specimen | + + | Blood - Blood | + + + + + | Narrative | Performed At | + + + | See initial timepoint for results. Test performed by: Mary Alice | [facility] | | [facility] [address] [address] [place], [place] | REFERENCE LAB | | [address] | | + + + + + + + + | Performing | Address | City/State/Zipcode | Phone Number | | Organization | | | | + + + + + | [facility] | | | | + + + + + | [facility] | see below | | | + + + + + BUSULFAN PK, ORAL (08/19/2015 8:05 AM PST) + +-------+ + + + | Component | Value | Ref Range | Performed | Pathologist | | | | | At | Signature | + +-------+ + + + | CONC AT | | | [facility] | | | STEADY | | | REFERENCE | | | STATE (CSS) | | | LAB | | + +-------+ + + + | CSS TARGET | | | [facility] | | | | | | REFERENCE | | | | | | LAB | | + +-------+ + + + | CSS EST AVG | | ng/mL | [facility] | | | EXPOSURE | | | REFERENCE | | | | | | LAB | | + +-------+ + + + | AUC AREA | | | [facility] | | | UNDER CURVE | | | REFERENCE | | | | | | LAB | | + +-------+ + + + | AUC TARGET | | | [facility] | | | | | | REFERENCE | | | | | | LAB | | + +-------+ + + + | AUC EST AVG | | uMol x Min | [facility] | | | EXPOSURE | | | REFERENCE | | | | | | LAB | | + +-------+ + + + | CLEARANCE | | | [facility] | | | RATE (BSS) | | | REFERENCE | | | | | | LAB | | + +-------+ + + + | REC DOSING | | | [facility] | | | TYPE | | | REFERENCE | | | | | | LAB | | + +-------+ + + + | REC DOSE | | | [facility] | | | | | | REFERENCE | | | | | | LAB | | + +-------+ + + + | DOSE CHANGE | | | [facility] | | | | | | REFERENCE | | | | | | LAB | | + +-------+ + + + | DOSE REC | | | [facility] | | | STARTS AT | | | REFERENCE | | | DOSE # | | | LAB | | + +-------+ + + + | DOSE REC | | | [facility] | | | END AT DOSE | | | REFERENCE | | | # | | | LAB | | + +-------+ + + + | BUSULFAN | | | [facility] | | | COMMENT | | | REFERENCE | | | | | | LAB | | + +-------+ + + + + + | Specimen | + + | Blood - Blood | + + + + + | Narrative | Performed At | + + + | See initial timepoint for results. Test performed by: Mary Alice | [facility] | | [facility] [address] [address] [place], [place] | REFERENCE LAB | | [address] | | + + + + + + + + | Performing | Address | City/State/Zipcode | Phone Number | | Organization | | | | + + + + + | [facility] | | | | + + + + + | [facility] | see below | | | + + + + + VRE (DIAZ) BY PCR (08/19/2015 7:01 AM PST) + + + + + + | Component | Value | Ref Range | Performed | Pathologist | | | | | At | Signature | + + + + + + | VRE BY PCR | Negative for Van A gene | Negative for | [facility] | | | | | Van A gene | LABORATORY | | | | | | SERVICES, | | | | | | CORE | | + + + + + + + + | Specimen | + + | Swab - Rectum | | structure (body | | structure) | + + + + + + + | Performing | Address | City/State/Zipcode | Phone Number | | Organization | | | | + + + + + | [facility] | [address] | [place] [address] | | | SERVICES, CORE | [address] | | | + + + + + BUSULFAN PK, ORAL (08/19/2015 7:00 AM PST) + +-------+ + + + | Component | Value | Ref Range | Performed | Pathologist | | | | | At | Signature | + +-------+ + + + | CONC AT | | | [facility] | | | STEADY | | | REFERENCE | | | STATE (CSS) | | | LAB | | + +-------+ + + + | CSS TARGET | | | [facility] | | | | | | REFERENCE | | | | | | LAB | | + +-------+ + + + | CSS EST AVG | | ng/mL | [facility] | | | EXPOSURE | | | REFERENCE | | | | | | LAB | | + +-------+ + + + | AUC AREA | | | [facility] | | | UNDER CURVE | | | REFERENCE | | | | | | LAB | | + +-------+ + + + | AUC TARGET | | | [facility] | | | | | | REFERENCE | | | | | | LAB | | + +-------+ + + + | AUC EST AVG | | uMol x Min | [facility] | | | EXPOSURE | | | REFERENCE | | | | | | LAB | | + +-------+ + + + | CLEARANCE | | | [facility] | | | RATE (BSS) | | | REFERENCE | | | | | | LAB | | + +-------+ + + + | REC DOSING | | | [facility] | | | TYPE | | | REFERENCE | | | | | | LAB | | + +-------+ + + + | REC DOSE | | | [facility] | | | | | | REFERENCE | | | | | | LAB | | + +-------+ + + + | DOSE CHANGE | | | [facility] | | | | | | REFERENCE | | | | | | LAB | | + +-------+ + + + | DOSE REC | | | [facility] | | | STARTS AT | | | REFERENCE | | | DOSE # | | | LAB | | + +-------+ + + + | DOSE REC | | | [facility] | | | END AT DOSE | | | REFERENCE | | | # | | | LAB | | + +-------+ + + + | BUSULFAN | | | [facility] | | | COMMENT | | | REFERENCE | | | | | | LAB | | + +-------+ + + + + + | Specimen | + + | Blood - Blood | + + + + + | Narrative | Performed At | + + + | See initial timepoint for results. Test performed by: Mary Alice | [facility] | | [facility] [address] [address] [place], [place] | REFERENCE LAB | | [address] | | + + + + + + + + | Performing | Address | City/State/Zipcode | Phone Number | | Organization | | | | + + + + + | [facility] | | | | + + + + + | [facility] | see below | | | + + + + + BUSULFAN PK, ORAL (08/19/2015 6:00 AM PST) + +-------+ + + + | Component | Value | Ref Range | Performed | Pathologist | | | | | At | Signature | + +-------+ + + + | CONC AT | | | [facility] | | | STEADY | | | REFERENCE | | | STATE (CSS) | | | LAB | | + +-------+ + + + | CSS TARGET | | | [facility] | | | | | | REFERENCE | | | | | | LAB | | + +-------+ + + + | CSS EST AVG | | ng/mL | [facility] | | | EXPOSURE | | | REFERENCE | | | | | | LAB | | + +-------+ + + + | AUC AREA | | | [facility] | | | UNDER CURVE | | | REFERENCE | | | | | | LAB | | + +-------+ + + + | AUC TARGET | | | [facility] | | | | | | REFERENCE | | | | | | LAB | | + +-------+ + + + | AUC EST AVG | | uMol x Min | [facility] | | | EXPOSURE | | | REFERENCE | | | | | | LAB | | + +-------+ + + + | CLEARANCE | | | [facility] | | | RATE (BSS) | | | REFERENCE | | | | | | LAB | | + +-------+ + + + | REC DOSING | | | [facility] | | | TYPE | | | REFERENCE | | | | | | LAB | | + +-------+ + + + | REC DOSE | | | [facility] | | | | | | REFERENCE | | | | | | LAB | | + +-------+ + + + | DOSE CHANGE | | | [facility] | | | | | | REFERENCE | | | | | | LAB | | + +-------+ + + + | DOSE REC | | | [facility] | | | STARTS AT | | | REFERENCE | | | DOSE # | | | LAB | | + +-------+ + + + | DOSE REC | | | [facility] | | | END AT DOSE | | | REFERENCE | | | # | | | LAB | | + +-------+ + + + | BUSULFAN | | | [facility] | | | COMMENT | | | REFERENCE | | | | | | LAB | | + +-------+ + + + + + | Specimen | + + | Blood - Blood | + + + + + | Narrative | Performed At | + + + | See initial timepoint for results. Test performed by: Mary Alice | [facility] | | [facility] [address] [address] [place], [place] | REFERENCE LAB | | [address] | | + + + + + + + + | Performing | Address | City/State/Zipcode | Phone Number | | Organization | | | | + + + + + | [facility] | | | | + + + + + | [facility] | see below | | | + + + + + PRODUCT - RED CELLS LEUKOREDUCED (08/19/2015 5:43 AM PST) + + + + + [...] + + + + | PRODUCT | [id number] | | [facility] | | | UNIT [...] + + + + | EXPIRATION | [id number] | | [facility] | | | DATE [...] + + + + | BLOOD | [id number] | | [facility] | | | PRODUCT [...] | + + + + + | [facility] | [address] | [place] [address] | | | PATHOLOGY | [address] | | | + + + + + BUSULFAN PK, ORAL (08/19/2015 5:30 AM PST) + +-------+ + + + | Component | Value | Ref Range | Performed | Pathologist | | | | | At | Signature | + +-------+ + + + | CONC AT | | | [facility] | | | STEADY | | | REFERENCE | | | STATE (CSS) | | | LAB | | + +-------+ + + + | CSS TARGET | | | [facility] | | | | | | REFERENCE | | | | | | LAB | | + +-------+ + + + | CSS EST AVG | | ng/mL | [facility] | | | EXPOSURE | | | REFERENCE | | | | | | LAB | | + +-------+ + + + | AUC AREA | | | [facility] | | | UNDER CURVE | | | REFERENCE | | | | | | LAB | | + +-------+ + + + | AUC TARGET | | | [facility] | | | | | | REFERENCE | | | | | | LAB | | + +-------+ + + + | AUC EST AVG | | uMol x Min | [facility] | | | EXPOSURE | | | REFERENCE | | | | | | LAB | | + +-------+ + + + | CLEARANCE | | | [facility] | | | RATE (BSS) | | | REFERENCE | | | | | | LAB | | + +-------+ + + + | REC DOSING | | | [facility] | | | TYPE | | | REFERENCE | | | | | | LAB | | + +-------+ + + + | REC DOSE | | | [facility] | | | | | | REFERENCE | | | | | | LAB | | + +-------+ + + + | DOSE CHANGE | | | [facility] | | | | | | REFERENCE | | | | | | LAB | | + +-------+ + + + | DOSE REC | | | [facility] | | | STARTS AT | | | REFERENCE | | | DOSE # | | | LAB | | + +-------+ + + + | DOSE REC | | | [facility] | | | END AT DOSE | | | REFERENCE | | | # | | | LAB | | + +-------+ + + + | BUSULFAN | | | [facility] | | | COMMENT | | | REFERENCE | | | | | | LAB | | + +-------+ + + + + + | Specimen | + + | Blood - Blood | + + + + + | Narrative | Performed At | + + + | See initial timepoint for results. Test performed by: Mary Alice | [facility] | | [facility] [address] [address] [place], [place] | REFERENCE LAB | | [address] | | + + + + + + + + | Performing | Address | City/State/Zipcode | Phone Number | | Organization | | | | + + + + + | [facility] | | | | + + + + + | [facility] | see below | | | + + + + + BUSULFAN PK, ORAL (08/19/2015 5:00 AM PST) + +-------+ + + + | Component | Value | Ref Range | Performed | Pathologist | | | | | At | Signature | + +-------+ + + + | CONC AT | | | [facility] | | | STEADY | | | REFERENCE | | | STATE (CSS) | | | LAB | | + +-------+ + + + | CSS TARGET | | | [facility] | | | | | | REFERENCE | | | | | | LAB | | + +-------+ + + + | CSS EST AVG | | ng/mL | [facility] | | | EXPOSURE | | | REFERENCE | | | | | | LAB | | + +-------+ + + + | AUC AREA | | | [facility] | | | UNDER CURVE | | | REFERENCE | | | | | | LAB | | + +-------+ + + + | AUC TARGET | | | [facility] | | | | | | REFERENCE | | | | | | LAB | | + +-------+ + + + | AUC EST AVG | | uMol x Min | [facility] | | | EXPOSURE | | | REFERENCE | | | | | | LAB | | + +-------+ + + + | CLEARANCE | | | [facility] | | | RATE (BSS) | | | REFERENCE | | | | | | LAB | | + +-------+ + + + | REC DOSING | | | [facility] | | | TYPE | | | REFERENCE | | | | | | LAB | | + +-------+ + + + | REC DOSE | | | [facility] | | | | | | REFERENCE | | | | | | LAB | | + +-------+ + + + | DOSE CHANGE | | | [facility] | | | | | | REFERENCE | | | | | | LAB | | + +-------+ + + + | DOSE REC | | | [facility] | | | STARTS AT | | | REFERENCE | | | DOSE # | | | LAB | | + +-------+ + + + | DOSE REC | | | [facility] | | | END AT DOSE | | | REFERENCE | | | # | | | LAB | | + +-------+ + + + | BUSULFAN | | | [facility] | | | COMMENT | | | REFERENCE | | | | | | LAB | | + +-------+ + + + + + | Specimen | + + | Blood - Blood | + + + + + | Narrative | Performed At | + + + | See initial timepoint for results. Test performed by: Mary Alice | [facility] | | [facility] [address] [address] [place], [place] | REFERENCE LAB | | [address] | | + + + + + + + + | Performing | Address | City/State/Zipcode | Phone Number | | Organization | | | | + + + + + | [facility] | | | | + + + + + | [facility] | see below | | | + + + + + CBC AND AUTO DIFF (08/19/2015 4:30 AM PST) + + + + + + | Component | Value | Ref Range | Performed | Pathologist | | | | | At | Signature | + + + + + + | WHITE CELL | 1.34 (L) | 4.40 - 11.00 | [facility] | | | COUNT | | K/cu mm | LABORATORY | | | | | | SERVICES, | | | | | | CORE | | + + + + + + | RED CELL | 2.57 (L) | 4.50 - 6.00 | [facility] | | | COUNT | | M/cu mm | LABORATORY | | | | | | SERVICES, | | | | | | CORE | | + + + + + + | HEMOGLOBIN | 7.2 (L) | 13.5 - 17.5 | [facility] | | | | | g/dL | LABORATORY | | | | | | SERVICES, | | | | | | CORE | | + + + + + + | HEMATOCRIT | 20.8 (L) | 41.0 - 53.0 % | [facility] | | | | | | LABORATORY | | | | | | SERVICES, | | | | | | CORE | | + + + + + + | MCV | 80.9 | 80.0 - 96.0 fL | [facility] | | | | | | LABORATORY | | | | | | SERVICES, | | | | | | CORE | | + + + + + + | MCHC | 34.6 | 33.0 - 35.5 | [facility] | | | | | g/dL | LABORATORY | | | | | | SERVICES, | | | | | | CORE | | + + + + + + | RDW SD | 34.7 (L) | 35.1 - 46.3 fL | [facility] | | | | | | LABORATORY | | | | | | SERVICES, | | | | | | CORE | | + + + + + + | PLATELET | 96 (L) | 150 - 400 K/cu | [facility] | | | COUNT | | mm | LABORATORY | | | | | | SERVICES, | | | | | | CORE | | + + + + + + | MPV | 10.1 | 9.7 - 12.3 fL | [facility] [...] + + + + | NEUTROPHIL | 16.5 (L) | 50.0 - 70.0 % | [facility] | | | % | | | LABORATORY | | | | | | SERVICES, | | | | | | CORE | | + + + + + + | LYMPHOCYTE | 26.1 | 18.0 - 42.0 % | [facility] | | | % | | | LABORATORY | | | | | | SERVICES, | | | | | | CORE | | + + + + + + | MONOCYTE % | 56.7 (H) | 3.5 - 9.0 % | [...] + + + + | IG% | 0.7 (H)Comment: Immature | 0.0 - 0.6 % [...] + + + + | NEUTROPHIL | 0.22 (L) | 1.80 - 7.70 | [facility] | | | # | | K/cu mm | LABORATORY | | | | | | SERVICES, | | | | | | CORE | | + + + + + + | LYMPHOCYTE | 0.35 (L) | 1.00 - 4.80 | [facility] | | | # | | K/cu mm | LABORATORY | | | | | | SERVICES, | | | | | | CORE | | + + + + + + | MONOCYTE # | 0.76 | 0.10 - 0.90 | [facility] | [...] + + + + | IG# | 0.01 | 0.00 - 0.03 | [facility] | [...] [facility] | [address] | [place] [address] | | | SERVICES, CORE | [address] | | | + + + + + PHOSPHORUS, PLASMA (08/19/2015 4:30 AM PST) + +---------+ + + + [...] | + + + + + | [facility] | [address] | [place] [address] | | | SERVICES, CORE | [address] | | | + + + + + MAGNESIUM, PLASMA (08/19/2015 4:30 AM PST) + +-------+ + + + | Component | Value | Ref Range | Performed | Pathologist | | | | | At | Signature | + +-------+ + + + | MAGNESIUM,P | 2.1 | 1.8 - 2.5 mg/dL | [facility] | | | LASMA | | | [...] + + + + + | [facility] | [address] | [place] [address] | | | SERVICES, CORE | [address] | | | + + + + + COMPLETE METABOLIC SET (NA,K,CL,CO2,BUN,CREAT,GLUC,CA,AST,ALT,BILI TOTAL,ALK PHOS,ALB,PROT TOTAL) (08/19/2015 4:30 AM PST) + +---------+ + + + [...] +---------+ + + + | CREATININE | 0.88 | 0.70 - 1.30 | [facility] | | | PLASMA | | mg/dL | LABORATORY | | | (LAB) | | | SERVICES, | | | | | | CORE | | + +---------+ + + + | EGFR | >60 | >60 mL/min | [facility] | | | - | | | LABORATORY | | | MEXICAN | | | SERVICES, | | | [...] 4.1 | 3.4 - 5.0 | [facility] | [...] +---------+ + + + | CALCIUM, | 8.6 | 8.6 - 10.2 | [facility] | [...] +---------+ + + + | AST(SGOT) | 20 | <=41 U/L | [facility] | | | | | | LABORATORY | | | | | | SERVICES, | | | | | | CORE | | + +---------+ + + + | ALT (SGPT) | 38 | <=60 U/L | [facility] | | [...] | + + + + + | [facility] | [address] | [place] [address] | | | SERVICES, CORE | [address] | | | + + + + + LDH TOTAL, PLASMA (08/19/2015 4:30 AM PST) + +---------+ + + + | Component | Value | Ref Range | Performed | Pathologist | | | | | At | Signature | + +---------+ + + + | LD TOTAL, | 166 | <=250 U/L | [facility] | | [...] [facility] | [address] | [place] [address] | | | INDRA SHARIF | [address] | | | + + + + + BUSULFAN PK, ORAL (08/19/2015 4:30 AM PST) + + + + + + | Component | Value | Ref Range | Performed | Pathologist | | | | | At | Signature | + + + + + + | CONC AT | | | [facility] | | | STEADY | | | REFERENCE | | | STATE (CSS) | | | LAB | | + + + + + + | CSS TARGET | | | [facility] | | | | | | REFERENCE | | | | | | LAB | | + + + + + + | CSS EST AVG | | ng/mL | [facility] | | | EXPOSURE | | | REFERENCE | | | | | | LAB | | + + + + + + | AUC AREA | 1541 for dose #1 | | [facility] | | | UNDER CURVE | | | REFERENCE | | | | | | LAB | | + + + + + + | AUC TARGET | Average 950 to 1350per | | [facility] | | | | regimen dose | | REFERENCE | | | | | | LAB | | + + + + + + | AUC EST AVG | 1,236 | uMol x Min | [facility] | | | EXPOSURE | | | REFERENCE | | | | | | LAB | | + + + + + + | CLEARANCE | 2.66 | | [facility] | | | RATE (BSS) | | | REFERENCE | | | | | | LAB | | + + + + + + | REC DOSING | Q6 | | [facility] | | | TYPE | | | REFERENCE | | | | | | LAB | | + + + + + + | REC DOSE | 56.0 | | [facility] | | | | | | REFERENCE | | | | | | LAB | | + + + + + + | DOSE CHANGE | -31.7 | | [facility] | | | | | | REFERENCE | | | | | | LAB | | + + + + + + | DOSE REC | 7 | | [facility] | | | STARTS AT | | | REFERENCE | | | DOSE # | | | LAB | | + + + + + + | DOSE REC | 16 | | [facility] | | | END AT DOSE | | | REFERENCE | | | # | | | LAB | | + + + + + + | BUSULFAN | | | [facility] | | | COMMENT | | | REFERENCE | | | | | | LAB | | + + + + + + + + | Specimen | + + | Blood - Blood | + + + + + | Narrative | Performed At | + + + | Test performed | [facility] | | by:[facility] [id number] | REFERENCE LAB | | [address], [place] [address] | | |[place] [address] | | + + + + + + + + | Performing | Address | City/State/Zipcode | Phone Number | | Organization | | | | + + + + + | [facility] | | | | + + + + + | [facility] | see below | | | + + + + + URIC ACID, PLASMA (08/19/2015 4:30 AM PST) + +---------+ + + + | Component | Value | Ref Range | Performed | Pathologist | | | | | At | Signature | + +---------+ + + + | URIC ACID, | 2.6 (L) | 3.7 - 8.0 mg/dL | [...] [facility] | [address] | [place] [address] | | | SERVICES, CORE | [address] | | | + + + + + PRODUCT - RED CELLS LEUKOREDUCED (08/18/2015 6:54 PM PST) + + + + + [...] + + + + | PRODUCT | [id number] | | [facility] | | | UNIT [...] + + + + | EXPIRATION | [id number] | | [facility] | | | DATE [...] + + + + | BLOOD | [id number] | | [facility] | | | PRODUCT [...] [facility] DEPART[facility] | [address] | [place] [address] | | | PATHOLOGY | [address] | | | + + + + + RBC MORPHOLOGY (08/18/2015 4:48 PM PST) + + + + + [...] + + + + + + | MICROCYTOSI | 1+(10-25cells/HPF) | | [facility] | | [...] | + + + + + | [facility] | [address] | [place] [address] | | | SERVICES, CORE | [address] | | | + + + + + MANUAL DIFFERENTIAL (08/18/2015 4:48 PM PST) + + + + + + | Component | Value | Ref Range | Performed | Pathologist | | | | | At | Signature | + + + + + + | NEUTROPHIL | 51.0 | 50.0 - 70.0 % | [facility] | | | % | | | LABORATORY | | | | | | SERVICES, | | | | | | CORE | | + + + + + + | LYMPHOCYTE | 14.7 (L) | 18.0 - 42.0 % | [facility] | | | % | | | LABORATORY | | | | | | SERVICES, | | | | | | CORE | | + + + + + + | MONOCYTE % | 33.3 (H) | 3.5 - 9.0 % | [...] + + + + | IG% | 1.0 (H)Comment: Immature | 0.0 - 0.6 % [...] + + + + | NEUTROPHIL | 0.82 (L) | 1.80 - 7.70 | [facility] [...] | IG# | 0.02 | 0.00 - 0.03 | [facility] | [...] [facility] | [address] | [place] [address] | | | INDRA SHARIF | [address] | | | + + + + + CBC AND AUTO DIFF (08/18/2015 4:48 PM PST) + + + + + [...] + + + | RED CELL | 2.25 (L) | 4.50 - 6.00 | [facility] | | | COUNT | | M/cu mm | LABORATORY | | | | | | SERVICES, | | | | | | CORE | | + + + + + + | HEMOGLOBIN | 6.3 (L) | 13.5 - 17.5 | [facility] | | | | | g/dL | LABORATORY | | | | | | SERVICES, | | | | | | CORE | | + + + + + + | HEMATOCRIT | 17.8 (LL) | 41.0 - 53.0 % | [facility] | | | | | | LABORATORY | | | | | | SERVICES, | | | | | | CORE | | + + + + + + | MCV | 79.1 (L) | 80.0 - 96.0 fL | [facility] | | | | | | LABORATORY | | | | | | SERVICES, | | | | | | CORE | | + + + + + + | MCHC | 35.4 | 33.0 - 35.5 | [facility] | | | | | g/dL | LABORATORY | | | | | | SERVICES, | | | | | | CORE | | + + + + + + | RDW SD | 32.5 (L) | 35.1 - 46.3 fL | [facility] | | | | | | LABORATORY | | | | | | SERVICES, | | | | | | CORE | | + + + + + + | PLATELET | 110 (L) | 150 - 400 K/cu | [facility] | | | COUNT | | mm | LABORATORY | | | | | | SERVICES, | | | | | | CORE | | + + + + + + | MPV | 10.3 | 9.7 - 12.3 fL | [facility] [...] | + + + + + | [facility] | [address] | [place] [address] | | | SERVICES, CORE | [address] | | | + + + + + ANTIBODY SCREEN (08/18/2015 4:48 PM PST) + + + + + [...] [facility] | [address] | [place] [address] | | | SERVICES, | [address] | | | | TRANSFUSION MEDICINE | | | | + + + + + ABO & RH TYPE (08/18/2015 4:48 PM PST) + + + + + [...] | + + + + + | [facility] | [address] | [place] [address] | | | SERVICES, | [address] | | | | TRANSFUSION MEDICINE | | | | + + + + + IGA, SERUM (08/18/2015 4:48 PM PST) + +-------+ + + + | Component | Value | Ref Range | Performed | Pathologist | | | | | At | Signature | + +-------+ + + + | IGA SERUM | 116 | 70 - 400 mg/dL | [facility] | | | [facility] | | [facility] | [facility] | | + +-------+ + + + + + | Specimen | + + | Blood - Blood | + + + + + + + | Performing | Address | City/State/Zipcode | Phone Number | | Organization | | | | + + + + + | [facility] | [address] | [place] [address] | | | [facility] | | | | + + + + + IGG, SERUM (08/18/2015 4:48 PM PST) + +-------+ + + + | Component | Value | Ref Range | Performed | Pathologist | | | | | At | Signature | + +-------+ + + + | IGG SERUM | 780 | 700 - 1600 | [facility] [...] + | [facility] - | [address] | [place] [address] | | | [place] | | | | + + + + + INR (08/18/2015 4:48 PM PST) + +-------+ + + + | Component | Value | Ref Range | Performed | Pathologist | | | | | At | Signature | + +-------+ + + + | INR | 1.13 | 0.90 - 1.20 INR | [facility] [...] [facility] | [address] | [place] [address] | | | INDRA SHARIF | [address] | | | + + + + + LDH TOTAL, PLASMA (08/18/2015 4:48 PM PST) + +---------+ + + + | Component | Value | Ref Range | Performed | Pathologist | | | | | At | Signature | + +---------+ + + + | LD TOTAL, | 179 | <=250 U/L | [facility] | | [...] [facility] | [address] | [place] [address] | | | SERVICES, CORE | [address] | | | + + + + + BILIRUBIN DIRECT (08/18/2015 4:48 PM PST) + +---------+ + + + | Component | Value | Ref Range | Performed | Pathologist | | | | | At | Signature | + +---------+ + + + | BILIRUBIN | 0.3 | 0.0 - 0.3 mg/dL | [facility] | | | DIRECT | | | LABORATORY | | | | | | SERVICES, | | | | | | CORE | | + +---------+ + + + | REI GARVIN | Gertrude Hemo | | [facility] | | | [...] [facility] | [address] | [place] [address] | | | KOLE, INDRA | [address] | | | + + + + + URIC ACID, PLASMA (08/18/2015 4:48 PM PST) + +---------+ + + + | Component | Value | Ref Range | Performed | Pathologist | | | | | At | Signature | + +---------+ + + + | URIC ACID, | 3.0 (L) | 3.7 - 8.0 mg/dL | [...] [facility] | [address] | [place] [address] | | | SERVICES, CORE | [address] | | | + + + + + PHOSPHORUS, PLASMA (08/18/2015 4:48 PM PST) + +-------+ + + + | Component | Value | Ref Range | Performed | Pathologist | | | | | At | Signature | + +-------+ + + + | PHOSPHORUS, | 4.3 | 2.4 - 4.7 mg/dL | [facility] [...] | + + + + + | [facility] | [address] | [place] [address] | | | SERVICES, CORE | [address] | | | + + + + + MAGNESIUM, PLASMA (08/18/2015 4:48 PM PST) + +-------+ + + + | Component | Value | Ref Range | Performed | Pathologist | | | | | At | Signature | + +-------+ + + + | MAGNESIUM,P | 2.2 | 1.8 - 2.5 mg/dL | [facility] [...] [facility] | [address] | [place] [address] | | | KOLE, INDRA | [address] | | | + + + + + COMPLETE METABOLIC SET (NA,K,CL,CO2,BUN,CREAT,GLUC,CA,AST,ALT,BILI TOTAL,ALK PHOS,ALB,PROT TOTAL) (08/18/2015 4:48 PM PST) + +---------+ + + + [...] +---------+ + + + | CREATININE | 0.96 | 0.70 - 1.30 | [facility] | | | PLASMA | | mg/dL | LABORATORY | | | (LAB) | | | SERVICES, | | | | | | CORE | | + +---------+ + + + | EGFR | >60 | >60 mL/min | [facility] | | | - | | | LABORATORY | | | [place] | | | SERVICES, | | | [...] +---------+ + + + | BILIRUBIN | 1.5 (H) | 0.3 - 1.2 mg/dL | [facility] [...] + + + | ALK PHOS | 80 | 53 - 128 U/L | [facility] [...] + + + | ALT (SGPT) | 43 | <=60 U/L | [facility] | | [...] + + + + + | [facility] | [address] | [place] [address] | | | SERVICES, CORE | [address] | | | + + + + + PRODUCT - PLATELET PHERESIS LEUKOREDUCED (08/18/2015 8:49 AM PST) + + + + + [...] + + + + | PRODUCT | [id number] | | [facility] | | | UNIT [...] + + + + | EXPIRATION | [id number] | | [facility] | | | DATE [...] + + + + | BLOOD | [id number] | | [facility] | | | PRODUCT [...] | + + + + + | [facility] | [address] | [place] [address] | | | PATHOLOGY | [address] | | | + + + + + PRODUCT - PLATELET PHERESIS LEUKOREDUCED (08/18/2015 8:49 AM PST) + + + + + [...] + + + + | PRODUCT | [id number] | | [facility] | | | UNIT [...] + + + + | EXPIRATION | [id number] | | [facility] | | | DATE | | | DEPARTMENT | | | | | | OF | | | | | | PATHOLOGY | | + + + + + + | BLOOD TYPE | 9500 | | [facility] | | | BARCODE | | | DEPARTMENT | | | | | | OF | | | | | | PATHOLOGY | | + + + + + + | BLOOD | [id number] | | [facility] | | | PRODUCT [...] | + + + + + | [facility] | [address] | [place] [address] | | | PATHOLOGY | [address] | | | + + + + + documented in this encounter Visit Diagnoses + + | Diagnosis | + + | Acute myeloid leukemia (AML), M4 (HCC)- primary induction failure - Primary | + + | 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) | + + | CINV (chemotherapy-induced nausea and vomiting) Nausea with vomiting | + + | Electrolyte abnormality Electrolyte and fluid disorders not elsewhere classified | + + | Hx of allogeneic stem cell transplant (HCC) | + + | Cellulitis Cellulitis and abscess of unspecified site | + + | Pancytopenia due to chemotherapy (HCC) Antineoplastic chemotherapy induced | | pancytopenia | + + | Neutropenic fever (HCC) Neutropenia, unspecified | + + | Mucositis due to chemotherapy Mucositis (ulcerative) due to antineoplastic therapy | + + | On total parenteral nutrition (TPN) Other specified conditions influencing health | | status | + + | Hypoalbuminemia due to protein-calorie malnutrition (HCC) | + + | Dehydration | + + | Hypomagnesemia Disorders of magnesium metabolism | + + | Nasal congestion Other diseases of nasal cavity and sinuses | + + | Skin rash Rash and other nonspecific skin eruption | + + | Red eye Redness or discharge of eye | + + | 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 Administered Medications + +--------+ +--------+------+------+ | Medication Order | MAR | Action | Dose | Rate | Site | | | Action | Date | | | | + +--------+ +--------+------+------+ | acetaminophen (TYLENOL) tablet | Given | 09/11/19 | 650 mg | | | | 325-650 mg 325-650 mg, oral, | | 16 6:13 | | | | | EVERY 4 HOURS NEEDED, Starting | | PM PST | | | | | 08/18/15 at 1643, Until Mon | | | | | | | 09/13/15 at 2144, mild pain, fever, | | | | | | | blood product premedication | | | | | | + +--------+ +--------+------+------+ +-------+ +--------+---+---+ | Given | 09/10/19 | 650 mg | | | | | 16 3:52 | | | | | | AM PST | | | | +-------+ +--------+---+---+ | Given | 09/09/19 | 650 mg | | | | | 16 5:31 | | | | | | PM PST | | | | +-------+ +--------+---+---+ +---+---+ | | | +---+---+ + +-------+ +--------+---+---+ | acetaminophen (TYLENOL) tablet | Given | 08/26/19 | 650 mg | | | | 650 mg 650 mg, oral, ONE TIME | | 16 8:56 | | | | | DURING VISIT, Starting Lupe | | PM PST | | | | | 08/26/15 at 0000, Until Lupe | | | | | | | 08/26/15 at 2359 | | | | | | + +-------+ +--------+---+---+ +---+---+ | | | +---+---+ + +---------+ +--------+---+---+ | acyclovir (ZOVIRAX) 500 mg in | New Bag | 09/08/19 | 500 mg | | | | NaCl 0.9 % IV 500 mg (rounded | | 16 9:36 | | | | | from 517.5 mg = 250 mg/m2 | | PM PST | | | | | 2.07 m2 Order-specific BSA), | | | | | | | intravenous, EVERY 12 HOURS, | | | | | | | First dose (after last | | | | | | | modification) on Sun09/03/15 at | | | | | | | 2100, Until Discontinued | | | | | | + +---------+ +--------+---+---+ +---------+ +--------+---+---+ | | 09/08/19 | 500 mg | | | | | 16 9:01 | | | | | | AM PST | | | | +---------+ +--------+---+---+ | | 09/07/19 | 500 mg | | | | | 16 9:39 | | | | | | PM PST | | | | +---------+ +--------+---+---+ +---+---+ | | | +---+---+ + +-------+ +--------+---+---+ | allopurinol (ZYLOPRIM) tablet | Given | 08/25/19 | 300 mg | | | | 300 mg 300 mg, oral, DAILY, 8 | | 16 9:49 | | | | | doses, First dose on Sun08/18/15 | | AM PST | | | | | at 1715, Last dose on Sun08/25/15 | | | | | | | at 0900 | | | | | | + +-------+ +--------+---+---+ + + +--------+---+---+ | Given | 08/24/19 | 300 mg | | | | | 16 9:42 | | | | | | AM PST | | | | + + +--------+---+---+ | See OB TraceVue | 08/23/19 | 300 mg | | | | | 16 9:26 | | | | | | AM PST | | | | + + +--------+---+---+ +---+---+ | | | +---+---+ + +-------+ +------+---+---+ | ALPRAZolam (XANAX) tablet 1 mg | Given | 09/13/19 | 1 mg | | | | 1 mg, oral, THREE TIMES DAILY | | 16 8:01 | | | | | NEEDED, Starting 08/18/15 at | | AM PST | | | | | 1811, Until 09/13/15 at 2144, | | | | | | | anxiety | | | | | | + +-------+ +------+---+---+ +-------+ +------+---+---+ | Given | 09/12/19 | 1 mg | | | | | 16 10:47 | | | | | | AM PST | | | | +-------+ +------+---+---+ | Given | 09/11/19 | 1 mg | | | | | 16 7:33 | | | | | | PM PST | | | | +-------+ +------+---+---+ +---+---+ | | | +---+---+ + +-------+ +-------+---+---+ | aluminum-magnesium | Given | 08/31/19 | 30 mL | | | | hydroxide-simethicone (MAALOX; | | 16 4:51 | | | | | MYLANTA) 200-200-20 mg/5 mL | | PM PST | | | | | suspension 30 mL 30 mL, oral, | | | | | | | EVERY 3 HOURS NEEDED, Starting | | | | | | | 08/18/15 at 1643, Until Mon | | | | | | | 09/13/15 at 2144, gastrointestinal | | | | | | | upset | | | | | | + +-------+ +-------+---+---+ +---+---+ | | | +---+---+ + +-------+ +------+---+---+ | amLODIPine (NORVASC) tablet 5 | Given | 09/13/19 | 5 mg | | | | mg 5 mg, oral, DAILY, First dose | | 16 8:01 | | | | | on Lupe 09/09/15 at 1400, Until | | AM PST | | | | | Discontinued | | | | | | + +-------+ +------+---+---+ +-------+ +------+---+---+ | Given | 09/12/19 | 5 mg | | | | | 16 9:01 | | | | | | AM PST | | | | +-------+ +------+---+---+ | Given | 09/11/19 | 5 mg | | | | | 16 9:47 | | | | | | AM PST | | | | +-------+ +------+---+---+ +---+---+ | | | +---+---+ + +-------+ +-------+---+---+ | baclofen (LIORESAL) tablet 10 | Given | 08/24/19 | 10 mg | | | | mg 10 mg, oral, ONCE, 1 dose, | | 16 3:28 | | | | | 08/24/15 at 0245 | | AM PST | | | | + +-------+ +-------+---+---+ +---+---+ | | | +---+---+ + +-------+ +-------+---+---+ | baclofen (LIORESAL) tablet 10 | Given | 09/06/19 | 10 mg | | | | mg 10 mg, oral, THREE TIMES | | 16 2:18 | | | | | DAILY NEEDED, Starting Tue | | PM PST | | | | | 08/24/15 at 1843, Until 09/13/15 | | | | | | | at 2144, hiccups | | | | | | + +-------+ +-------+---+---+ +-------+ +-------+---+---+ | Given | 09/06/19 | 10 mg | | | | | 16 10:45 | | | | | | AM PST | | | | +-------+ +-------+---+---+ | Given | 08/24/19 | 10 mg | | | | | 16 7:40 | | | | | | PM PST | | | | +-------+ +-------+---+---+ +---+---+ | | | +---+---+ + +-------+ +-------+---+---+ | busulfan (MYLERAN) capsule 56 | Given | 08/22/19 | 56 mg | | | | mg 56 mg, oral, EVERY 6 HOURS, | | 16 10:42 | | | | | 10 doses, First dose (after last | | PM PST | | | | | modification) on Sun08/20/15 at | | | | | | | 1600, Last dose on 08/22/15 at | | | | | | | 2200 | | | | | | + +-------+ +-------+---+---+ +-------+ +-------+---+---+ | Given | 08/22/19 | 56 mg | | | | | 16 4:03 | | | | | | PM PST | | | | +-------+ +-------+---+---+ | Given | 08/22/19 | 56 mg | | | | | 16 10:59 | | | | | | AM PST | | | | +-------+ +-------+---+---+ +---+---+ | | | +---+---+ + +-------+ +-------+---+---+ | busulfan (MYLERAN) tablet 82 mg | Given | 08/20/19 | 82 mg | | | | 82 mg (rounded from 81.2 mg = 1 | | 16 10:25 | | | | | mg/kg | | AM PST | | | | | 81.2 kg Treatment plan adjusted | | | | | | | weight), oral, EVERY 6 HOURS, 16 | | | | | | | doses, First dose on [facility] 08/19/15 | | | | | | | at 0400, Last dose on 08/22/15 | | | | | | | at 2200 | | | | | | + +-------+ +-------+---+---+ +-------+ +-------+---+---+ | Given | 08/20/19 | 82 mg | | | | | 16 4:25 | | | | | | AM PST | | | | +-------+ +-------+---+---+ | Given | 08/19/19 | 82 mg | | | | | 16 10:21 | | | | | | PM PST | | | | +-------+ +-------+---+---+ +---+---+ | | | +---+---+ + +---------+ +-----+---+---+ | ceFEPime IV 2 grams in NS (MB+) | New Bag | 09/03/19 | 2 g | | | | 2 g, intravenous, EVERY 8 | | 16 2:02 | | | | | HOURS, First dose (after last | | AM PST | | | | | modification) on 08/30/15 at | | | | | | | 1645, Until Discontinued | | | | | | + +---------+ +-----+---+---+ +---------+ +-----+---+---+ | New Bag | 09/02/19 | 2 g | | | | | 16 6:09 | | | | | | PM PST | | | | +---------+ +-----+---+---+ | New Bag | 09/02/19 | 2 g | | | | | 16 10:26 | | | | | | AM PST | | | | +---------+ +-----+---+---+ +---+---+ | | | +---+---+ + +---------+ +-----+---+---+ | ceFEPime IV 2 grams in NS (MB+) | New Bag | 09/10/19 | 2 g | | | | 2 g, intravenous, EVERY 8 | | 16 6:15 | | | | | HOURS, First dose on 09/05/15 | | AM PST | | | | | at 1400, Until Discontinued | | | | | | + +---------+ +-----+---+---+ +---------+ +-----+---+---+ | New Bag | 09/09/19 | 2 g | | | | | 16 9:45 | | | | | | PM PST | | | | +---------+ +-----+---+---+ | New Bag | 09/09/19 | 2 g | | | | | 16 1:59 | | | | | | PM PST | | | | +---------+ +-----+---+---+ +---+---+ | | | +---+---+ + + + +--------+---+---+ | clonazePAM (KLONOPIN) tablet | See OB | 08/23/19 | 0.5 mg | | | | 0.5 mg 0.5 mg, oral, TWICE | TraceVue | 16 9:27 | | | | | DAILY, 10 doses, First dose on | | AM PST | | | | | 08/18/15 at 2100, Last dose on | | | | | | | 08/23/15 at 0900 | | | | | | + + + +--------+---+---+ +-------+ +--------+---+---+ | Given | 08/22/19 | 0.5 mg | | | | | 16 9:45 | | | | | | PM PST | | | | +-------+ +--------+---+---+ | Given | 08/22/19 | 0.5 mg | | | | | 16 9:06 | | | | | | AM PST | | | | +-------+ +--------+---+---+ +---+---+ | | | +---+---+ + +---------+ + +-------+---+ | cyclophosphamide (CYTOXAN) | New Bag | 08/24/19 | 4,900 mg | 250 | | | 4,900 mg in NaCl 0.9 % IV 4,900 | | 16 11:19 | | mL/hr | | | mg, intravenous, Administer over | | AM PST | | | | | 2 Hours, EVERY 24 HOURS, 2 doses, | | | | | | | First dose on Sun08/23/15 at | | | | | | | 1100, Last dose on Sun08/24/15 at | | | | | | | 1100, HIGH RISK | | | | | | | MEDICATION-CHEMOTHERAPY | | | | | | | Irritant. Administer IVPB on Day | | | | | | | -3 and Day -2. Total dose is | | | | | | | 120 mg/kg over 2 days. Dose is | | | | | | | based upon actual body weight | | | | | | | since it is less than ideal body | | | | | | | weight. Per [employer] | | | | | | | authorization, dose | | | | | | | standardization has been approved | | | | | | | for this order. Dose changed | | | | | | | from 4872 mg (= 60 mg/kg/dose) to | | | | | | | 4900 mg., | | | | | | + +---------+ + +-------+---+ +---------+ + +-------+---+ | New Bag | 08/23/19 | 4,900 mg | 250 | | | | 16 11:21 | | mL/hr | | | | AM PST | | | | +---------+ + +-------+---+ +---+---+ | | | +---+---+ + +-------+ +-------+---+---+ | dexamethasone (DECADRON) tablet | Given | 08/23/19 | 12 mg | | | | 12 mg 12 mg, oral, ONCE, 1 | | 16 10:28 | | | | | dose, 08/23/15 at 1000 | | AM PST | | | | + +-------+ +-------+---+---+ +---+---+ | | | +---+---+ + +-------+ +------+---+---+ | dexamethasone (DECADRON) tablet | Given | 08/25/19 | 8 mg | | | | 8 mg 8 mg, oral, EVERY 24 | | 16 9:49 | | | | | HOURS, 2 doses, First dose on Sun | | AM PST | | | | | 08/24/15 at 1000, Last dose on | | | | | | | 08/25/15 at 1000 | | | | | | + +-------+ +------+---+---+ +-------+ +------+---+---+ | Given | 08/24/19 | 8 mg | | | | | 16 9:43 | | | | | | AM PST | | | | +-------+ +------+---+---+ +---+---+ | | | +---+---+ + +-------+ +-------+---+---+ | diphenhydrAMINE (BENADRYL) | Given | 08/24/19 | 25 mg | | | | capsule 25 mg 25 mg, oral, EVERY | | 16 3:00 | | | | | 6 HOURS NEEDED, Starting Wed | | PM PST | | | | | 08/18/15 at 0939, Until Fri | | | | | | | 08/27/15 at 0815, allergic | | | | | | | reaction, platelet transfusion | | | | | | + +-------+ +-------+---+---+ +-------+ +-------+---+---+ | Given | 08/19/19 | 25 mg | | | | | 16 6:21 | | | | | | PM PST | | | | +-------+ +-------+---+---+ | Given | 08/18/19 | 25 mg | | | | | 16 9:45 | | | | | | AM PST | | | | +-------+ +-------+---+---+ +---+---+ | | | +---+---+ + +-------+ +-------+---+---+ | diphenhydrAMINE (BENADRYL) | Given | 08/21/19 | 25 mg | | | | capsule 25 mg 25 mg, oral, EVERY | | 16 4:04 | | | | | 4 HOURS NEEDED, Starting Wed | | AM PST | | | | | 08/18/15 at 1904, Until Fri | | | | | | | 08/27/15 at 0815, nausea/vomiting, | | | | | | | extrapyramidal symptoms | | | | | | + +-------+ +-------+---+---+ +-------+ +-------+---+---+ | Given | 08/18/19 | 25 mg | | | | | 16 8:17 | | | | | | PM PST | | | | +-------+ +-------+---+---+ +---+---+ | | | +---+---+ + +-------+ +-------+---+---+ | diphenhydrAMINE (BENADRYL) | Given | 09/11/19 | 25 mg | | | | capsule 25-50 mg 25-50 mg, oral, | | 16 6:13 | | | | | EVERY 6 HOURS NEEDED, | | PM PST | | | | | Starting 08/27/15 at 0815, | | | | | | | Until 09/13/15 at 2144, | | | | | | | nausea/vomiting, allergic | | | | | | | reaction, platelet transfusion | | | | | | + +-------+ +-------+---+---+ +-------+ +-------+---+---+ | Given | 09/10/19 | 25 mg | | | | | 16 3:52 | | | | | | AM PST | | | | +-------+ +-------+---+---+ | Given | 09/09/19 | 25 mg | | | | | 16 5:32 | | | | | | PM PST | | | | +-------+ +-------+---+---+ +---+---+ | | | +---+---+ + +-------+ +-------+---+---+ | diphenhydrAMINE (BENADRYL) | Given | 08/26/19 | 50 mg | | | | capsule 50 mg 50 mg, oral, ONE | | 16 8:56 | | | | | TIME DURING VISIT, Starting Lupe | | PM PST | | | | | 08/26/15 at 0000, Until Lupe | | | | | | | 08/26/15 at 2359 | | | | | | + +-------+ +-------+---+---+ + +---+ | | | + +---+ | diphenhydrAMINE (BENADRYL) | | | capsule 1 dose, Starting Wed | | | 08/18/15 at 0942, Until Wed | | | 08/18/15 at 0945 | | + +---+ | | | + +---+ + +---------+ +-------+---+---+ | diphenhydrAMINE (BENADRYL) | New Bag | 08/27/19 | 25 mg | | | | injection 25 mg 25 mg, | | 16 1:42 | | | | | intravenous, EVERY 4 HOURS | | AM PST | | | | | NEEDED, Starting Sun08/18/15 at | | | | | | | 1904, Until Sun08/27/15 at 0815, | | | | | | | nausea/vomiting, extrapyramidal | | | | | | | symptoms | | | | | | + +---------+ +-------+---+---+ +---------+ +-------+---+---+ | New Bag | 08/26/19 | 25 mg | | | | | 16 3:10 | | | | | | PM PST | | | | +---------+ +-------+---+---+ | New Bag | 08/26/19 | 25 mg | | | | | 16 5:06 | | | | | | AM PST | | | | +---------+ +-------+---+---+ +---+---+ | | | +---+---+ + +---------+ +-------+---+---+ | diphenhydrAMINE (BENADRYL) | New Bag | 09/08/19 | 25 mg | | | | injection 25-50 mg 25-50 mg, | | 16 12:04 | | | | | intravenous, EVERY 4 HOURS | | PM PST | | | | | NEEDED, Starting 08/27/15 at | | | | | | | 0813, Until 09/13/15 at 2144, | | | | | | | allergic reaction, | | | | | | | nausea/vomiting, extrapyramidal | | | | | | | symptoms, platelet transfusion | | | | | | + +---------+ +-------+---+---+ +---------+ +-------+---+---+ | New Bag | 09/07/19 | 25 mg | | | | | 16 11:04 | | | | | | PM PST | | | | +---------+ +-------+---+---+ | New Bag | 09/03/19 | 25 mg | | | | | 16 5:23 | | | | | | AM PST | | | | +---------+ +-------+---+---+ +---+---+ | | | +---+---+ + +-------+ +-------+---+---+ | | Given | 09/03/19 | 15 mL | | | | [id number] | | 16 8:22 | | | | | (SPECIAL MOUTHWASH) suspension | | AM PST | | | | | (compound) 10-15 mL 10-15 mL, | | | | | | | oral, EVERY 1 HOUR NEEDED, | | | | | | | Starting 08/18/15 at 1643, | | | | | | | Until 09/13/15 at 2144, sore | | | | | | | mouth, oral/esophageal pain | | | | | | + +-------+ +-------+---+---+ +-------+ +-------+---+---+ | Given | 09/01/19 | 15 mL | | | | | 16 4:15 | | | | | | AM PST | | | | +-------+ +-------+---+---+ +---+---+ | | | +---+---+ + + + +--------+---+---+ | docusate sodium (COLACE) | See OB | 08/23/19 | 100 mg | | | | capsule 100 mg 100 mg, oral, | TraceVue | 16 9:26 | | | | | TWICE DAILY, First dose on Sun | | AM PST | | | | | 08/18/15 at 2100, Until | | | | | | | Discontinued | | | | | | + + + +--------+---+---+ +-------+ +--------+---+---+ | Given | 08/22/19 | 100 mg | | | | | 16 9:45 | | | | | | PM PST | | | | +-------+ +--------+---+---+ | Given | 08/22/19 | 100 mg | | | | | 16 9:06 | | | | | | AM PST | | | | +-------+ +--------+---+---+ +---+---+ | | | +---+---+ + +-------+ +------+---+---+ | dronabinol (MARINOL) capsule 5 | Given | 09/11/19 | 5 mg | | | | mg 5 mg, oral, TWICE DAILY | | 16 9:47 | | | | | BEFORE MEALS, First dose on Lupe | | AM PST | | | | | 08/26/15 at 1200, Until | | | | | | | Discontinued | | | | | | + +-------+ +------+---+---+ +-------+ +------+---+---+ | Given | 09/10/19 | 5 mg | | | | | 16 5:22 | | | | | | PM PST | | | | +-------+ +------+---+---+ | Given | 09/10/19 | 5 mg | | | | | 16 9:05 | | | | | | AM PST | | | | +-------+ +------+---+---+ +---+---+ | | | +---+---+ + +---------+ +-------+---+---+ | esomeprazole (NEXIUM) IV 40 mg | New Bag | 09/11/19 | 40 mg | | | | 40 mg, intravenous, DAILY, First | | 16 8:45 | | | | | dose on Sun09/07/15 at 2145, | | AM PST | | | | | Until Discontinued | | | | | | + +---------+ +-------+---+---+ +---------+ +-------+---+---+ | New Bag | 09/10/19 | 40 mg | | | | | 16 9:05 | | | | | | AM PST | | | | +---------+ +-------+---+---+ | New Bag | 09/09/19 | 40 mg | | | | | 16 11:41 | | | | | | AM PST | | | | +---------+ +-------+---+---+ +---+---+ | | | +---+---+ + +---------+ +------+-------+---+ | fat emulsion (INTRALIPID) 20 % | New Bag | 09/04/19 | 51 g | 21.3 | | | IV infusion 51 g at 21.3 mL/hr, | | 16 1:15 | | mL/hr | | | intravenous, TPN 2100, Starting | | AM PST | | | | | 09/03/15 at 2100, Until Sat | | | | | | | 09/04/15 at 2058 | | | | | | + +---------+ +------+-------+---+ +---+---+ | | | +---+---+ + +---------+ +------+-------+---+ | fat emulsion (INTRALIPID) 20 % | New Bag | 09/04/19 | 51 g | 21.3 | | | IV infusion 51 g at 21.3 mL/hr, | | 16 8:55 | | mL/hr | | | intravenous, TPN 2099, Starting | | PM PST | | | | | 09/04/15 at 2099, Until Sun | | | | | | | 09/05/15 at 2058 | | | | | | + +---------+ +------+-------+---+ +---+---+ | | | +---+---+ + +---------+ +------+-------+---+ | fat emulsion (INTRALIPID) 20 % | New Bag | 09/05/19 | 51 g | 21.3 | | | IV infusion 51 g at 21.3 mL/hr, | | 16 9:20 | | mL/hr | | | intravenous, TPN 2099, Starting | | PM PST | | | | | 09/05/15 at 2099, Until Mon | | | | | | | 09/06/15 at 2058 | | | | | | + +---------+ +------+-------+---+ +---+---+ | | | +---+---+ + +---------+ +------+-------+---+ | fat emulsion (INTRALIPID) 20 % | New Bag | 09/06/19 | 51 g | 21.3 | | | IV infusion 51 g at 21.3 mL/hr, | | 16 9:00 | | mL/hr | | | intravenous, TPN 2099, Starting | | PM PST | | | | | 09/06/15 at 2099, Until Tue | | | | | | | 09/07/15 at 2058 | | | | | | + +---------+ +------+-------+---+ +---+---+ | | | +---+---+ + +---------+ +------+-------+---+ | fat emulsion (INTRALIPID) 20 % | New Bag | 09/07/19 | 51 g | 21.3 | | | IV infusion 51 g at 21.3 mL/hr, | | 16 9:40 | | mL/hr | | | intravenous, TPN 2099, Starting | | PM PST | | | | | 09/07/15 at 2099, Until Wed | | | | | | | 09/08/15 at 2058 | | | | | | + +---------+ +------+-------+---+ +---+---+ | | | +---+---+ + +---------+ +------+-------+---+ | fat emulsion (INTRALIPID) 20 % | New Bag | 09/08/19 | 51 g | 21.3 | | | IV infusion 51 g at 21.3 mL/hr, | | 16 9:54 | | mL/hr | | | intravenous, TPN 2099, Starting | | PM PST | | | | | 09/08/15 at 2099, Until Lupe | | | | | | | 09/09/15 at 2058 | | | | | | + +---------+ +------+-------+---+ +---+---+ | | | +---+---+ + +---------+ +------+-------+---+ | fat emulsion (INTRALIPID) 20 % | New Bag | 09/09/19 | 51 g | 21.3 | | | IV infusion 51 g at 21.3 mL/hr, | | 16 9:45 | | mL/hr | | | intravenous, TPN 2100, Starting | | PM PST | | | | | Lupe 09/09/15 at 2099, Until Fri | | | | | | | 09/10/15 at 2058 | | | | | | + +---------+ +------+-------+---+ +---+---+ | | | +---+---+ + +---------+ +--------+---+---+ | fentaNYL citrate (PF) | New Bag | 08/18/19 | 50 mcg | | | | (SUBLIMAZE) injection 25-100 mcg | | 16 11:35 | | | | | 25-100 mcg, intravenous, | | AM PST | | | | | INTRAPROCEDURE PRN, Starting Wed | | | | | | | 08/18/15 at 0848, Until Wed | | | | | | | 08/18/15 at 1217, sedation | | | | | | + +---------+ +--------+---+---+ +---------+ +--------+---+---+ | New Bag | 08/18/19 | 50 mcg | | | | | 16 11:10 | | | | | | AM PST | | | | +---------+ +--------+---+---+ +---+---+ | | | +---+---+ + +---------+ +--------+---+---+ | fentaNYL citrate (PF) | New Bag | 08/26/19 | 50 mcg | | | | (SUBLIMAZE) injection 25-100 mcg | | 16 8:45 | | | | | 25-100 mcg, intravenous, | | AM PST | | | | | INTRAPROCEDURE PRN, Starting Lupe | | | | | | | 08/26/15 at 0843, Until Lupe | | | | | | | 08/26/15 at 1003, sedation | | | | | | + +---------+ +--------+---+---+ +---------+ +--------+---+---+ | New Bag | 08/26/19 | 50 mcg | | | | | 16 8:30 | | | | | | AM PST | | | | +---------+ +--------+---+---+ | New Bag | 08/26/19 | 50 mcg | | | | | 16 8:21 | | | | | | AM PST | | | | +---------+ +--------+---+---+ +---+---+ | | | +---+---+ + +-------+ +---------+---+---+ | filgrastim (NEUPOGEN) injection | Given | 09/11/19 | 480 mcg | | | | 480 mcg 480 mcg (rounded from | | 16 5:10 | | | | | 406 mcg = 5 mcg/kg | | PM PST | | | | | 81.2 kg Treatment plan recorded | | | | | | | weight), subcutaneous, EVERY | | | | | | | EVENING AT 1700, First dose on | | | | | | | 09/08/15 at 1700, Until | | | | | | | Discontinued | | | | | | + +-------+ +---------+---+---+ +-------+ +---------+---+---+ | Given | 09/10/19 | 480 mcg | | | | | 16 5:22 | | | | | | PM PST | | | | +-------+ +---------+---+---+ | Given | 09/09/19 | 480 mcg | | | | | 16 5:07 | | | | | | PM PST | | | | +-------+ +---------+---+---+ +---+---+ | | | +---+---+ + +-------+ +--------+---+---+ | fluconazole (DIFLUCAN) tablet | Given | 09/03/19 | 400 mg | | | | 400 mg 400 mg, oral, DAILY, | | 16 8:27 | | | | | First dose on Sun08/26/15 at | | AM PST | | | | | 0900, Until Discontinued | | | | | | + +-------+ +--------+---+---+ +-------+ +--------+---+---+ | Given | 09/02/19 | 400 mg | | | | | 16 8:32 | | | | | | AM PST | | | | +-------+ +--------+---+---+ | Given | 09/01/19 | 400 mg | | | | | 16 9:48 | | | | | | AM PST | | | | +-------+ +--------+---+---+ +---+---+ | | | +---+---+ + +-------+ +--------+---+---+ | fluconazole (DIFLUCAN) tablet | Given | 09/13/19 | 400 mg | | | | 400 mg 400 mg, oral, DAILY, | | 16 8:01 | | | | | First dose on Sun09/09/15 at 1100, | | AM PST | | | | | Until Discontinued | | | | | | + +-------+ +--------+---+---+ +-------+ +--------+---+---+ | Given | 09/12/19 | 400 mg | | | | | 16 9:01 | | | | | | AM PST | | | | +-------+ +--------+---+---+ | Given | 09/11/19 | 400 mg | | | | | 16 9:47 | | | | | | AM PST | | | | +-------+ +--------+---+---+ +---+---+ | | | +---+---+ + +---------+ +--------+---+---+ | fluconazole IV 400 mg IN NaCl | New Bag | 09/08/19 | 400 mg | | | | (RTU) 400 mg, intravenous, EVERY | | 16 10:47 | | | | | 24 HOURS, First dose (after last | | AM PST | | | | | modification) on 09/04/15 at | | | | | | | 1000, Until Discontinued | | | | | | + +---------+ +--------+---+---+ +---------+ +--------+---+---+ | New Bag | 09/07/19 | 400 mg | | | | | 16 9:45 | | | | | | AM PST | | | | +---------+ +--------+---+---+ | New Bag | 09/06/19 | 400 mg | | | | | 16 9:38 | | | | | | AM PST | | | | +---------+ +--------+---+---+ +---+---+ | | | +---+---+ + +---------+ +--------+-------+---+ | fosaprepitant (EMEND) 150 mg in | New Bag | 08/23/19 | 150 mg | 500 | | | NaCl 0.9 % IV 150 mg, | | 16 10:28 | | mL/hr | | | intravenous, Administer over 30 | | AM PST | | | | | Minutes, ONCE, 1 dose, Mon | | | | | | | 08/23/15 at 1030, Administer 30 | | | | | | | minutes prior to chemotherapy on | | | | | | | Day -3., | | | | | | + +---------+ +--------+-------+---+ +---+---+ | | | +---+---+ + +---------+ +------+---+---+ | haloperidol lactate (HALDOL) | New Bag | 08/27/19 | 2 mg | | | | injection 0.5-2 mg 0.5-2 mg, | | 16 10:55 | | | | | intravenous, EVERY 4 HOURS | | PM PST | | | | | NEEDED, Starting 08/18/15 at | | | | | | | 1904, Until 09/05/15 at 1349, | | | | | | | nausea/vomiting | | | | | | + +---------+ +------+---+---+ +---------+ +------+---+---+ | New Bag | 08/27/19 | 1 mg | | | | | 16 5:20 | | | | | | PM PST | | | | +---------+ +------+---+---+ | New Bag | 08/26/19 | 1 mg | | | | | 16 11:25 | | | | | | PM PST | | | | +---------+ +------+---+---+ +---+---+ | | | +---+---+ + +---------+ + +---+---+ | heparin 10 unit/mL IV flush | New Bag | 09/12/19 | 50 Units | | | | syringe 50 Units 50 Units, | | 16 11:34 | | | | | intravenous, NEEDED, Starting | | PM PST | | | | | 08/18/15 at 1738, Until Mon | | | | | | | 09/13/15 at 2144, line patency, per | | | | | | | protocol | | | | | | + +---------+ + +---+---+ +---------+ + +---+---+ | New Bag | 09/11/19 | 50 Units | | | | | 16 11:27 | | | | | | AM PST | | | | +---------+ + +---+---+ | New Bag | 09/11/19 | 50 Units | | | | | 16 11:26 | | | | | | AM PST | | | | +---------+ + +---+---+ +---+---+ | | | +---+---+ + +-------+ +--------+---+---+ | hydrocortisone (CORTEF) tablet | Given | 08/26/19 | 100 mg | | | | 100 mg 100 mg, oral, ONE TIME | | 16 8:56 | | | | | DURING VISIT, Starting Lupe | | PM PST | | | | | 08/26/15 at 0000, Until Lupe | | | | | | | 08/26/15 at 2359 | | | | | | + +-------+ +--------+---+---+ +---+---+ | | | +---+---+ + +---------+ +-------+---+---+ | hydrocortisone sodium succinate | New Bag | 09/10/19 | 50 mg | | | | (PF) (SOLU-CORTEF) injection 50 | | 16 3:52 | | | | | mg 50 mg, intravenous, | | AM PST | | | | | NEEDED, Starting Sun09/08/15 at | | | | | | | 1255, Until Sun09/13/15 at 2144, | | | | | | | platelet transfusion premed | | | | | | + +---------+ +-------+---+---+ +---------+ +-------+---+---+ | New Bag | 09/09/19 | 50 mg | | | | | 16 5:32 | | | | | | PM PST | | | | +---------+ +-------+---+---+ | New Bag | 09/09/19 | 50 mg | | | | | 16 4:30 | | | | | | AM PST | | | | +---------+ +-------+---+---+ +---+---+ | | | +---+---+ + + + +---+---+---+ | HYDROmorphone 25 mg in | Rate/Dos | 09/11/19 | | | | | preservative free NaCl 0.9% 50 mL | e Change | 16 4:34 | | | | | AUTOMATIC [employer]Y [employer]PERATOR infusion intravenous, | | AM PST | | | | | CONTINUOUS, Starting 09/04/15 | | | | | | | at 0730, Until 09/11/15 at 0935 | | | | | | + + + +---+---+---+ + + +---+---+---+ | Rate/Dose Verify | 09/10/19 | | | | | | 16 7:41 | | | | | | PM PST | | | | + + +---+---+---+ | Rate/Dose Change | 09/10/19 | | | | | | 16 11:54 | | | | | | AM PST | | | | + + +---+---+---+ +---+---+ | | | +---+---+ + + + +------+---+---+ | lactulose (ENULAC) liquid 10-20 | See OB | 08/23/19 | 20 g | | | | g 10-20 g (15-30 mL), oral, | TraceVue | 16 9:25 | | | | | THREE TIMES DAILY NEEDED, | | AM PST | | | | | Starting 08/18/15 at 1813, | | | | | | | Until 09/13/15 at 2144, | | | | | | | constipation | | | | | | + + + +------+---+---+ +-------+ +------+---+---+ | Given | 08/21/19 | 20 g | | | | | 16 9:10 | | | | | | PM PST | | | | +-------+ +------+---+---+ +---+---+ | | | +---+---+ + +---------+ +-------+---+---+ | leucovorin injection 10 mg 10 | New Bag | 09/05/19 | 10 mg | | | | mg, intravenous, EVERY 6 HOURS, 8 | | 16 11:29 | | | | | doses, First dose on Sun09/03/15 | | AM PST | | | | | at 1700, Last dose on Sun | | | | | | | 09/05/15 at 1100 | | | | | | + +---------+ +-------+---+---+ +---------+ +-------+---+---+ | New Bag | 09/05/19 | 10 mg | | | | | 16 5:02 | | | | | | AM PST | | | | +---------+ +-------+---+---+ | New Bag | 09/04/19 | 10 mg | | | | | 16 10:08 | | | | | | PM PST | | | | +---------+ +-------+---+---+ +---+---+ | | | +---+---+ + +---------+ +-------+---+---+ | leucovorin injection 10 mg 10 | New Bag | 09/10/19 | 10 mg | | | | mg, intravenous, EVERY 6 HOURS, 8 | | 16 9:05 | | | | | doses, First dose on Sun09/08/15 | | AM PST | | | | | at 1600, Last dose on Sun09/10/15 | | | | | | | at 1000 | | | | | | + +---------+ +-------+---+---+ +---------+ +-------+---+---+ | New Bag | 09/10/19 | 10 mg | | | | | 16 3:52 | | | | | | AM PST | | | | +---------+ +-------+---+---+ | New Bag | 09/09/19 | 10 mg | | | | | 16 9:48 | | | | | | PM PST | | | | +---------+ +-------+---+---+ +---+---+ | | | +---+---+ + + + +--------+---+---+ | levETIRAcetam (KEPPRA) tablet | See OB | 08/23/19 | 500 mg | | | | 500 mg 500 mg, oral, TWICE | TraceVue | 16 9:27 | | | | | DAILY, 10 doses, First dose on | | AM PST | | | | | 2/10/16 at 2100, Last dose on | | | | | | | 08/23/15 at 0900 | | | | | | + + + +--------+---+---+ +-------+ +--------+---+---+ | Given | 08/22/19 | 500 mg | | | | | 16 9:45 | | | | | | PM PST | | | | +-------+ +--------+---+---+ | Given | 08/22/19 | 500 mg | | | | | 16 9:06 | | | | | | AM PST | | | | +-------+ +--------+---+---+ +---+---+ | | | +---+---+ + +-------+ +--------+---+---+ | levofloxacin (LEVAQUIN) tablet | Given | 08/30/19 | 500 mg | | | | 500 mg 500 mg, oral, DAILY, | | 16 10:07 | | | | | First dose on Sun08/25/15 at | | AM PST | | | | | 0900, Until Discontinued | | | | | | + +-------+ +--------+---+---+ +-------+ +--------+---+---+ | Given | 08/29/19 | 500 mg | | | | | 16 8:36 | | | | | | AM PST | | | | +-------+ +--------+---+---+ | Given | 08/28/19 | 500 mg | | | | | 16 10:23 | | | | | | AM PST | | | | +-------+ +--------+---+---+ +---+---+ | | | +---+---+ + +-------+ +--------+---+---+ | levofloxacin (LEVAQUIN) tablet | Given | 09/13/19 | 750 mg | | | | 750 mg 750 mg, oral, DAILY, | | 16 8:01 | | | | | doses, First dose (after last | | AM PST | | | | | modification) on Sun09/10/15 at | | | | | | | 1015, Last dose on Sun09/13/15 at | | | | | | | 0900 | | | | | | + +-------+ +--------+---+---+ +-------+ +--------+---+---+ | Given | 09/12/19 | 750 mg | | | | | 16 9:01 | | | | | | AM PST | | | | +-------+ +--------+---+---+ | Given | 09/11/19 | 750 mg | | | | | 16 9:47 | | | | | | AM PST | | | | +-------+ +--------+---+---+ +---+---+ | | | +---+---+ + +-------+ +------+---+---+ | loperamide (IMODIUM) capsule 2 | Given | 09/06/19 | 2 mg | | | | mg 2 mg, oral, NEEDED, | | 16 9:31 | | | | | Starting 08/18/15 at 1643, | | AM PST | | | | | Until 09/06/15 at 1030, after | | | | | | | each loose stool | | | | | | + +-------+ +------+---+---+ +-------+ +------+---+---+ | Given | 09/05/19 | 2 mg | | | | | 16 8:00 | | | | | | PM PST | | | | +-------+ +------+---+---+ | Given | 09/05/19 | 2 mg | | | | | 16 1:17 | | | | | | PM PST | | | | +-------+ +------+---+---+ +---+---+ | | | +---+---+ + +-------+ +------+---+---+ | loperamide (IMODIUM) capsule | Given | 09/09/19 | 2 mg | | | | 2-4 mg 2-4 mg, oral, NEEDED, | | 16 5:31 | | | | | Starting 09/06/15 at 1030, | | PM PST | | | | | Until Sun09/13/15 at 2144, after | | | | | | | each loose stool | | | | | | + +-------+ +------+---+---+ +-------+ +------+---+---+ | Given | 09/07/19 | 4 mg | | | | | 16 6:21 | | | | | | PM PST | | | | +-------+ +------+---+---+ | Given | 09/06/19 | 4 mg | | | | | 16 10:46 | | | | | | AM PST | | | | +-------+ +------+---+---+ +---+---+ | | | +---+---+ + +---------+ +--------+---+---+ | LORazepam (ATIVAN) injection | New Bag | 08/27/19 | 0.5 mg | | | | 0.5 mg 0.5 mg, intravenous, | | 16 4:19 | | | | | EVERY 6 HOURS NEEDED, Starting | | PM PST | | | | | 08/24/15 at 1456, Until Mon | | | | | | | 09/13/15 at 2144, anxiety, | | | | | | | nausea/vomiting | | | | | | + +---------+ +--------+---+---+ +---------+ +--------+---+---+ | New Bag | 08/26/19 | 0.5 mg | | | | | 16 10:01 | | | | | | PM PST | | | | +---------+ +--------+---+---+ | New Bag | 08/26/19 | 0.5 mg | | | | | 16 5:53 | | | | | | PM PST | | | | +---------+ +--------+---+---+ +---+---+ | | | +---+---+ + +---------+ +--------+---+---+ | LORazepam (ATIVAN) injection | New Bag | 08/25/19 | 0.5 mg | | | | 0.5 mg 0.5 mg, intravenous, | | 16 8:41 | | | | | ONCE, 1 dose, 08/25/15 at 2000 | | PM PST | | | | + +---------+ +--------+---+---+ +---+---+ | | | +---+---+ + +-------+ +--------+---+---+ | LORazepam (ATIVAN) tablet 0.5 | Given | 08/24/19 | 0.5 mg | | | | mg 0.5 mg, oral, ONCE, 1 dose, | | 16 1:26 | | | | | 08/24/15 at 0245 | | PM PST | | | | + +-------+ +--------+---+---+ +---+---+ | | | +---+---+ + +-------+ +--------+---+---+ | LORazepam (ATIVAN) tablet 0.5 | Given | 09/10/19 | 0.5 mg | | | | mg 0.5 mg, oral, EVERY 6 HOURS | | 16 8:52 | | | | | NEEDED, Starting 08/24/15 | | PM PST | | | | | at 1456, Until Sun09/13/15 at | | | | | | | 2144, anxiety, nausea/vomiting | | | | | | + +-------+ +--------+---+---+ +-------+ +--------+---+---+ | Given | 09/08/19 | 0.5 mg | | | | | 16 2:13 | | | | | | PM PST | | | | +-------+ +--------+---+---+ +---+---+ | | | +---+---+ + +-------+ +--------+---+---+ | LORazepam (ATIVAN) tablet 0.5-1 | Given | 08/23/19 | 0.5 mg | | | | mg 0.5-1 mg, oral, ONCE, 1 | | 16 9:24 | | | | | dose, Sun08/23/15 at 2130 | | PM PST | | | | + +-------+ +--------+---+---+ +---+---+ | | | +---+---+ + +---------+ +-----+---+---+ | magnesium sulfate in water IV | New Bag | 09/13/19 | 4 g | | | | (RTU) 4 g 4 g, intravenous, | | 16 5:12 | | | | | NEEDED, Starting 08/18/15 at | | AM PST | | | | | 1643, Until 09/13/15 at 2144, | | | | | | | Mg level 1.3-1.6 mg/dL | | | | | | + +---------+ +-----+---+---+ +---------+ +-----+---+---+ | New Bag | 09/11/19 | 4 g | | | | | 16 4:35 | | | | | | AM PST | | | | +---------+ +-----+---+---+ | New Bag | 09/09/19 | 4 g | | | | | 16 4:30 | | | | | | AM PST | | | | +---------+ +-----+---+---+ +---+---+ | | | +---+---+ + +---------+ + +--------+---+ | mesna (MESNEX) 4,900 mg in NaCl | New Bag | 08/24/19 | 4,900 mg | 43.71 | | | 0.9 % IV 4,900 mg, intravenous, | | 16 11:18 | | mL/hr | | | Administer over 24 Hours, EVERY | | AM PST | | | | | 24 HOURS, 2 doses, First dose on | | | | | | | 08/23/15 at 1100, Last dose on | | | | | | | 08/24/15 at 1100, Prior to | | | | | | | first dose of Cyclophosphamide | | | | | | | begin [place] on Day -3 and Day -2. | | | | | | | Continue until 24 hours after | | | | | | | last dose of Cyclophosphamide. | | | | | | | Dose is based upon actual body | | | | | | | weight since it is less than | | | | | | | ideal body weight. Per [employer] | | | | | | | Committee authorization, dose | | | | | | | standardization has been approved | | | | | | | for this order. Dose changed | | | | | | | from 4872 mg (= 60 mg/kg/dose) to | | | | | | | 4900 mg., | | | | | | + +---------+ + +--------+---+ +---------+ + +--------+---+ | New Bag | 08/23/19 | 4,900 mg | 43.71 | | | | 16 11:21 | | mL/hr | | | | AM PST | | | | +---------+ + +--------+---+ +---+---+ | | | +---+---+ + +---------+ +-------+---+---+ | methotrexate (PF) injection 20 | New Bag | 08/30/19 | 20 mg | | | | mg 20 mg, intravenous, ONCE, 1 | | 16 12:51 | | | | | dose, 08/30/15 at 1400 | | PM PST | | | | + +---------+ +-------+---+---+ +---+---+ | | | +---+---+ + +---------+ +-------+---+---+ | methotrexate (PF) injection 20 | New Bag | 09/02/19 | 20 mg | | | | mg 20 mg, intravenous, ONCE, 1 | | 16 4:28 | | | | | dose, Lupe 09/02/15 at 1400 | | PM PST | | | | + +---------+ +-------+---+---+ +---+---+ | | | +---+---+ + +---------+ +-------+---+---+ | methotrexate (PF) injection 20 | New Bag | 09/07/19 | 20 mg | | | | mg 20 mg, intravenous, ONCE, | | 16 4:08 | | | | | dose, 09/07/15 at 1400 | | PM PST | | | | + +---------+ +-------+---+---+ +---+---+ | | | +---+---+ + +---------+ +-------+---+---+ | methotrexate (PF) injection 30 | New Bag | 08/28/19 | 30 mg | | | | mg 30 mg, intravenous, ONCE, | | 16 1:33 | | | | | dose, 08/28/15 at 0130 | | AM PST | | | | + +---------+ +-------+---+---+ +---+---+ | | | +---+---+ + +---------+ +--------+---+---+ | metroNIDAZOLE (FLAGYL) IV 500 | New Bag | 09/09/19 | 500 mg | | | | mg 500 mg, intravenous, EVERY 8 | | 16 6:14 | | | | | HOURS, First dose on 09/05/15 | | AM PST | | | | | at 1400, Until Discontinued | | | | | | + +---------+ +--------+---+---+ +---------+ +--------+---+---+ | New Bag | 09/08/19 | 500 mg | | | | | 16 10:42 | | | | | | PM PST | | | | +---------+ +--------+---+---+ | New Bag | 09/08/19 | 500 mg | | | | | 16 2:08 | | | | | | PM PST | | | | +---------+ +--------+---+---+ +---+---+ | | | +---+---+ + +---------+ +------+---+---+ | midazolam (VERSED) injection | New Bag | 08/18/19 | 1 mg | | | | 0.25-2 mg 0.25-2 mg, | | 16 1:00 | | | | | intravenous, INTRAPROCEDURE PRN, | | AM PST | | | | | Starting 08/18/15 at 0848, | | | | | | | Until 08/18/15 at 1217, | | | | | | | sedation | | | | | | + +---------+ +------+---+---+ +---+---+ | | | +---+---+ + +---------+ +------+---+---+ | midazolam (VERSED) injection | New Bag | 08/26/19 | 1 mg | | | | 0.25-2 mg 0.25-2 mg, | | 16 8:15 | | | | | intravenous, INTRAPROCEDURE PRN, | | AM PST | | | | | Starting Lupe 08/26/15 at 0843, | | | | | | | Until Lupe 08/26/15 at 1003, | | | | | | | sedation | | | | | | + +---------+ +------+---+---+ +---+---+ | | | +---+---+ + + + +---+---+---+ | 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 | Rate/Dos | 09/04/19 | | | | | (ADULT) intravenous, CONTINUOUS, | e Verify | 16 7:13 | | | | | Starting 09/03/15 at 0930, | | AM PST | | | | | Until 09/04/15 at 0649 | | | | | | + + + +---+---+---+ + + +---+---+---+ | Rate/Dose Change | 09/04/19 | | | | | | 16 6:34 | | | | | | AM PST | | | | + + +---+---+---+ | Rate/Dose Change | 09/04/19 | | | | | | 16 1:11 | | | | | | AM PST | | | | + + +---+---+---+ +---+---+ | | | +---+---+ + +---------+ +------+---+---+ | morphine injection 1-3 mg 1-3 | New Bag | 09/03/19 | 2 mg | | | | mg, intravenous, EVERY 2 HOURS | | 16 8:23 | | | | | NEEDED, Starting 08/18/15 at | | AM PST | | | | | 1643, Until Sun09/03/15 at 0850, | | | | | | | pain | | | | | | + +---------+ +------+---+---+ +---------+ +------+---+---+ | New Bag | 09/02/19 | 2 mg | | | | | 16 8:20 | | | | | | PM PST | | | | +---------+ +------+---+---+ | New Bag | 09/02/19 | 2 mg | | | | | 16 4:36 | | | | | | PM PST | | | | +---------+ +------+---+---+ +---+---+ | | | +---+---+ + + + +-------+-------+---+ | NaCl 0.9 % solution 150 mL/hr, | Restarte | 08/19/19 | 150 | 150 | | | intravenous, CONTINUOUS, | d | 16 6:46 | mL/hr | mL/hr | | | Starting 08/18/15 at 2100, | | AM PST | | | | | Until 08/22/15 at 2058 | | | | | | + + + +-------+-------+---+ +---------+ +-------+-------+---+ | New Bag | 08/19/19 | 150 | 150 | | | | 16 3:15 | mL/hr | mL/hr | | | | AM PST | | | | +---------+ +-------+-------+---+ | New Bag | 08/18/19 | 150 | 150 | | | | 16 9:00 | mL/hr | mL/hr | | | | PM PST | | | | +---------+ +-------+-------+---+ +---+---+ | | | +---+---+ + +---------+ +-------+-------+---+ | NaCl 0.9 % solution 100 mL/hr, | New Bag | 08/26/19 | 100 | 100 | | | intravenous, CONTINUOUS, | | 16 10:39 | mL/hr | mL/hr | | | Starting 08/22/15 at 2100, | | AM PST | | | | | Until Sun08/27/15 at 1055 | | | | | | + +---------+ +-------+-------+---+ + + +-------+-------+---+ | Restarted | 08/25/19 | 100 | 100 | | | | 16 10:58 | mL/hr | mL/hr | | | | PM PST | | | | + + +-------+-------+---+ | New Bag | 08/25/19 | 100 | 100 | | | | 16 2:57 | mL/hr | mL/hr | | | | PM PST | | | | + + +-------+-------+---+ +---+---+ | | | +---+---+ + +---------+ + +---+---+ | NaCl 0.9 % solution 1,000 mL, | New Bag | 08/27/19 | 1,000 mL | | | | intravenous, AT BEDTIME | | 16 9:21 | | | | | NEEDED, Starting Sun08/27/15 at | | PM PST | | | | | 1100, Until 08/28/15 at 0802, | | | | | | | daily PO fluid intake <2L by 2200 | | | | | | + +---------+ + +---+---+ +---+---+ | | | +---+---+ + +---------+ + +---+---+ | NaCl 0.9 % solution 1,000 mL, | New Bag | 08/28/19 | 1,000 mL | | | | intravenous, ONCE, 1 dose, Sat | | 16 9:06 | | | | | 08/28/15 at 0830 | | AM PST | | | | + +---------+ + +---+---+ +---+---+ | | | +---+---+ + +---------+ + + +---+ | NaCl 0.9 % solution 75 mL/hr, | New Bag | 08/30/19 | 75 mL/hr | 75 mL/hr | | | intravenous, CONTINUOUS, Starting | | 16 10:09 | | | | | 08/28/15 at 0845, Until Mon | | AM PST | | | | | 08/30/15 at 1035 | | | | | | + +---------+ + + +---+ + + + + +---+ | Restarted | 08/29/19 | 75 mL/hr | 75 mL/hr | | | | 16 9:45 | | | | | | PM PST | | | | + + + + +---+ | New Bag | 08/29/19 | 75 mL/hr | 75 mL/hr | | | | 16 6:30 | | | | | | PM PST | | | | + + + + +---+ +---+---+ | | | +---+---+ + +---------+ + +---+---+ | NaCl 0.9 % solution 1,000 mL, | New Bag | 08/30/19 | 1,000 mL | | | | intravenous, AT BEDTIME | | 16 11:29 | | | | | NEEDED, Starting 08/30/15 at | | PM PST | | | | | 1045, Until Lupe 09/02/15 at 1437, | | | | | | | daily PO fluid intake <2L by 2200 | | | | | | + +---------+ + +---+---+ +---+---+ | | | +---+---+ + + + + + +---+ | NaCl 0.9 % solution 75 mL/hr, | Restarte | 09/03/19 | 75 mL/hr | 75 mL/hr | | | intravenous, CONTINUOUS, Starting | d | 16 9:21 | | | | | Lu[place] 09/02/15 at 1515, Until Fri | | PM PST | | | | | 09/03/15 at 2100 | | | | | | + + + + + +---+ +---------+ + + +---+ | New Bag | 09/02/19 | 75 mL/hr | 75 mL/hr | | | | 16 6:00 | | | | | | PM PST | | | | +---------+ + + +---+ +---+---+ | | | +---+---+ + +---------+ +--------+---+---+ | NaCl 0.9 % solution 500 mL, | New Bag | 09/07/19 | 500 mL | | | | intravenous, ONCE, 1 dose, Tue | | 16 8:41 | | | | | 09/07/15 at 0845 | | AM PST | | | | + +---------+ +--------+---+---+ +---+---+ | | | +---+---+ + +-------+ +---+---+---+ | nystatin-zinc oxide-lidocaine | Given | 08/24/19 | | | | | (NDX) ointment (compound) | | 16 7:41 | | | | | topical, EVERY 1 HOUR NEEDED, | | PM PST | | | | | Starting 08/18/15 at 1643, | | | | | | | Until 09/13/15 at 2144, | | | | | | | perirectal area redness | | | | | | + +-------+ +---+---+---+ +---+---+ | | | +---+---+ + +-------+ +------+---+---+ | OLANZapine (ZYPREXA ZYDIS) | Given | 08/27/19 | 5 mg | | | | disintegrating tablet 5 mg 5 mg, | | 16 7:48 | | | | | oral, AT BEDTIME, First dose | | PM PST | | | | | (after last modification) on Fri | | | | | | | 08/27/15 at 1745, Until | | | | | | | Discontinued | | | | | | + +-------+ +------+---+---+ +---+---+ | | | +---+---+ + +-------+ +------+---+---+ | OLANZapine (ZYPREXA ZYDIS) | Given | 08/31/19 | 5 mg | | | | disintegrating tablet 5 mg 5 mg, | | 16 9:02 | | | | | oral, TWICE DAILY, First dose | | PM PST | | | | | (after last modification) on Sat | | | | | | | 08/28/15 at 0900, Until | | | | | | | Discontinued | | | | | | + +-------+ +------+---+---+ +-------+ +------+---+---+ | Given | 08/30/19 | 5 mg | | | | | 16 8:13 | | | | | | PM PST | | | | +-------+ +------+---+---+ | Given | 08/30/19 | 5 mg | | | | | 16 10:05 | | | | | | AM PST | | | | +-------+ +------+---+---+ +---+---+ | | | +---+---+ + +-------+ +-------+---+---+ | OLANZapine (ZYPREXA ZYDIS) | Given | 09/12/19 | 10 mg | | | | disintegrating tablet 5-10 mg | | 16 8:41 | | | | | 5-10 mg, oral, AT BEDTIME, First | | PM PST | | | | | dose (after last modification) on | | | | | | | 09/01/15 at 1999, Until | | | | | | | Discontinued | | | | | | + +-------+ +-------+---+---+ +-------+ +-------+---+---+ | Given | 09/11/19 | 10 mg | | | | | 16 8:30 | | | | | | PM PST | | | | +-------+ +-------+---+---+ | Given | 09/10/19 | 10 mg | | | | | 16 8:53 | | | | | | PM PST | | | | +-------+ +-------+---+---+ +---+---+ | | | +---+---+ + +-------+ +-------+---+---+ | omeprazole (PRILOSEC) capsule | Given | 09/13/19 | 20 mg | | | | 20 mg 20 mg, oral, BEFORE | | 16 5:12 | | | | | BREAKFAST, First dose on Sun | | AM PST | | | | | 09/12/15 at 0630, Until | | | | | | | Discontinued | | | | | | + +-------+ +-------+---+---+ +-------+ +-------+---+---+ | Given | 09/12/19 | 20 mg | | | | | 16 9:01 | | | | | | AM PST | | | | +-------+ +-------+---+---+ +---+---+ | | | +---+---+ + +-------+ +-------+---+---+ | omeprazole (PRILOSEC) capsule | Given | 09/07/19 | 40 mg | | | | 40 mg 40 mg, oral, DAILY, First | | 16 8:48 | | | | | dose on Sun08/18/15 at 1645, | | AM PST | | | | | Until Discontinued | | | | | | + +-------+ +-------+---+---+ +-------+ +-------+---+---+ | Given | 09/06/19 | 40 mg | | | | | 16 9:31 | | | | | | AM PST | | | | +-------+ +-------+---+---+ | Given | 09/05/19 | 40 mg | | | | | 16 9:30 | | | | | | AM PST | | | | +-------+ +-------+---+---+ +---+---+ | | | +---+---+ + +---------+ +------+---+---+ | ondansetron (ZOFRAN) injection | New Bag | 08/26/19 | 4 mg | | | | 4 mg 4 mg, intravenous, EVERY 12 | | 16 10:10 | | | | | HOURS NEEDED, Starting Wed | | AM PST | | | | | 08/25/15 at 1113, Until [place] | | | | | | | 08/26/15 at 1158, nausea/vomiting | | | | | | + +---------+ +------+---+---+ +---------+ +------+---+---+ | New Bag | 08/25/19 | 4 mg | | | | | 16 10:55 | | | | | | PM PST | | | | +---------+ +------+---+---+ | New Bag | 08/25/19 | 4 mg | | | | | 16 11:23 | | | | | | AM PST | | | | +---------+ +------+---+---+ +---+---+ | | | +---+---+ + +---------+ +------+---+---+ | ondansetron (ZOFRAN) injection | New Bag | 08/27/19 | 4 mg | | | | 4 mg 4 mg, intravenous, EVERY 12 | | 16 9:02 | | | | | HOURS, First dose (after last | | AM PST | | | | | modification) on Lupe 08/26/15 at | | | | | | | 2100, Until Discontinued | | | | | | + +---------+ +------+---+---+ +---------+ +------+---+---+ | New Bag | 08/26/19 | 4 mg | | | | | 16 8:58 | | | | | | PM PST | | | | +---------+ +------+---+---+ +---+---+ | | | +---+---+ + +---------+ +------+---+---+ | ondansetron (ZOFRAN) injection | New Bag | 08/28/19 | 4 mg | | | | 4 mg 4 mg, intravenous, EVERY 6 | | 16 12:47 | | | | | HOURS, 4 doses, First dose (after | | PM PST | | | | | last modification) on Fri | | | | | | | 08/27/15 at 1800, Last dose on Sat | | | | | | | 08/28/15 at 1300 | | | | | | + +---------+ +------+---+---+ +---------+ +------+---+---+ | New Bag | 08/28/19 | 4 mg | | | | | 16 6:39 | | | | | | AM PST | | | | +---------+ +------+---+---+ | New Bag | 08/28/19 | 4 mg | | | | | 16 1:15 | | | | | | AM PST | | | | +---------+ +------+---+---+ +---+---+ | | | +---+---+ + +---------+ +------+---+---+ | ondansetron (ZOFRAN) injection | New Bag | 08/30/19 | 4 mg | | | | 4 mg 4 mg, intravenous, EVERY 12 | | 16 8:13 | | | | | HOURS, First dose on 08/28/15 | | PM PST | | | | | at 2100, Until Discontinued | | | | | | + +---------+ +------+---+---+ +---------+ +------+---+---+ | New Bag | 08/29/19 | 4 mg | | | | | 16 9:30 | | | | | | PM PST | | | | +---------+ +------+---+---+ | New Bag | 08/29/19 | 4 mg | | | | | 16 8:36 | | | | | | AM PST | | | | +---------+ +------+---+---+ +---+---+ | | | +---+---+ + +---------+ +------+---+---+ | ondansetron (ZOFRAN) injection | New Bag | 09/11/19 | 4 mg | | | | 4 mg 4 mg, intravenous, TWICE | | 16 8:45 | | | | | DAILY, First dose on Sun09/03/15 | | AM PST | | | | | at 2130, Until Discontinued | | | | | | + +---------+ +------+---+---+ +---------+ +------+---+---+ | New Bag | 09/10/19 | 4 mg | | | | | 16 8:52 | | | | | | PM PST | | | | +---------+ +------+---+---+ | New Bag | 09/10/19 | 4 mg | | | | | 16 9:05 | | | | | | AM PST | | | | +---------+ +------+---+---+ +---+---+ | | | +---+---+ + +---------+ +------+---+---+ | ondansetron (ZOFRAN) injection | New Bag | 09/12/19 | 4 mg | | | | 4 mg 4 mg, intravenous, EVERY 12 | | 16 10:41 | | | | | HOURS NEEDED, Starting Sat | | AM PST | | | | | 09/11/15 at 0945, Until 09/13/15 | | | | | | | at 2144, nausea/vomiting | | | | | | + +---------+ +------+---+---+ +---+---+ | | | +---+---+ + +---------+ +------+---+---+ | ondansetron (ZOFRAN) injection | New Bag | 08/24/19 | 8 mg | | | | 8 mg 8 mg, intravenous, EVERY 12 | | 16 8:36 | | | | | HOURS, 4 doses, First dose on | | PM PST | | | | | 08/23/15 at 1000, Last dose on | | | | | | | 08/24/15 at 2200 | | | | | | + +---------+ +------+---+---+ +---------+ +------+---+---+ | New Bag | 08/24/19 | 8 mg | | | | | 16 9:43 | | | | | | AM PST | | | | +---------+ +------+---+---+ | New Bag | 08/23/19 | 8 mg | | | | | 16 10:27 | | | | | | PM PST | | | | +---------+ +------+---+---+ +---+---+ | | | +---+---+ + +-------+ +------+---+---+ | ondansetron (ZOFRAN) tablet 8 | Given | 08/22/19 | 8 mg | | | | mg 8 mg, oral, EVERY 6 HOURS, 16 | | 16 9:45 | | | | | doses, First dose on [facility] 08/19/15 | | PM PST | | | | | at 0300, Last dose on Sun | | | | | | | 08/22/15 at 2100 | | | | | | + +-------+ +------+---+---+ +-------+ +------+---+---+ | Given | 08/22/19 | 8 mg | | | | | 16 4:03 | | | | | | PM PST | | | | +-------+ +------+---+---+ | Given | 08/22/19 | 8 mg | | | | | 16 9:06 | | | | | | AM PST | | | | +-------+ +------+---+---+ +---+---+ | | | +---+---+ + +-------+ +------+---+---+ | ondansetron (ZOFRAN) tablet 8 | Given | 09/03/19 | 8 mg | | | | mg 8 mg, oral, EVERY 12 HOURS, | | 16 8:27 | | | | | First dose on 08/28/15 at | | AM PST | | | | | 2100, Until Discontinued | | | | | | + +-------+ +------+---+---+ +-------+ +------+---+---+ | Given | 09/02/19 | 8 mg | | | | | 16 8:03 | | | | | | PM PST | | | | +-------+ +------+---+---+ | Given | 09/02/19 | 8 mg | | | | | 16 8:32 | | | | | | AM PST | | | | +-------+ +------+---+---+ +---+---+ | | | +---+---+ + +-------+ +-------+---+---+ | oxyCODONE (immediate release) | Given | 09/11/19 | 30 mg | | | | (ROXICODONE) tablet 10-30 mg | | 16 4:00 | | | | | 10-30 mg, oral, EVERY 4 HOURS | | PM PST | | | | | NEEDED, Starting 09/11/15 at | | | | | | | 0933, Until 09/11/15 at 1603, | | | | | | | moderate pain | | | | | | + +-------+ +-------+---+---+ +---+---+ | | | +---+---+ + +-------+ +-------+---+---+ | oxyCODONE (immediate release) | Given | 09/02/19 | 30 mg | | | | (ROXICODONE) tablet 15-30 mg | | 16 6:11 | | | | | 15-30 mg, oral, EVERY 4 HOURS | | PM PST | | | | | NEEDED, Starting 08/18/15 at | | | | | | | 1857, Until Sun09/03/15 at 0850, | | | | | | | pain | | | | | | + +-------+ +-------+---+---+ +-------+ +-------+---+---+ | Given | 09/02/19 | 30 mg | | | | | 16 2:03 | | | | | | PM PST | | | | +-------+ +-------+---+---+ | Given | 09/01/19 | 30 mg | | | | | 16 9:10 | | | | | | PM PST | | | | +-------+ +-------+---+---+ +---+---+ | | | +---+---+ + +-------+ +-------+---+---+ | oxyCODONE (immediate release) | Given | 09/13/19 | 30 mg | | | | (ROXICODONE) tablet 15-30 mg | | 16 8:01 | | | | | 15-30 mg, oral, EVERY 4 HOURS | | AM PST | | | | | NEEDED, Starting 09/11/15 at | | | | | | | 1603, Until 09/13/15 at 2144, | | | | | | | moderate pain | | | | | | + +-------+ +-------+---+---+ +-------+ +-------+---+---+ | Given | 09/12/19 | 30 mg | | | | | 16 10:47 | | | | | | AM PST | | | | +-------+ +-------+---+---+ | Given | 09/11/19 | 30 mg | | | | | 16 7:33 | | | | | | PM PST | | | | +-------+ +-------+---+---+ +---+---+ | | | +---+---+ + +-------+ +-------+---+---+ | oxyCODONE (immediate release) | Given | 08/18/19 | 10 mg | | | | (ROXICODONE) tablet 5-10 mg 5-10 | | 16 5:36 | | | | | mg, oral, EVERY 4 HOURS | | PM PST | | | | | NEEDED, Starting Sun08/18/15 at | | | | | | | 1643, Until Sun08/18/15 at 1857, | | | | | | | pain | | | | | | + +-------+ +-------+---+---+ +---+---+ | | | +---+---+ + +-------+ +-------+---+---+ | oxyCODONE CR (OXYCONTIN) tablet | Given | 08/27/19 | 10 mg | | | | 10 mg 10 mg, oral, EVERY 12 | | 16 9:43 | | | | | HOURS, First dose on Sun08/18/15 | | AM PST | | | | | at 2300, Until Discontinued | | | | | | + +-------+ +-------+---+---+ +-------+ +-------+---+---+ | Given | 08/26/19 | 10 mg | | | | | 16 8:58 | | | | | | PM PST | | | | +-------+ +-------+---+---+ | Given | 08/26/19 | 10 mg | | | | | 16 10:53 | | | | | | AM PST | | | | +-------+ +-------+---+---+ +---+---+ | | | +---+---+ + + + +---+ +---+ | parenteral nutrition (adult) | Rate/Dos | 09/04/19 | | 75 mL/hr | | | at 40-75 mL/hr, intravenous, TPN | e Change | 16 12:00 | | | | | 2100, Starting 09/03/15 at | | PM PST | | | | | 2100, Until 09/04/15 at 2059 | | | | | | + + + +---+ +---+ + + +---+ +---+ | Rate/Dose Change | 09/04/19 | | 60 mL/hr | | | | 16 5:56 | | | | | | AM PST | | | | + + +---+ +---+ | New Bag | 09/04/19 | | 40 mL/hr | | | | 16 1:14 | | | | | | AM PST | | | | + + +---+ +---+ +---+---+ | | | +---+---+ + +---------+ +---+ +---+ | parenteral nutrition (adult) | New Bag | 09/04/19 | | 75 mL/hr | | | at 75 mL/hr, intravenous, TPN | | 16 8:55 | | | | | 2100, Starting 09/04/15 at | | PM PST | | | | | 2100, Until 09/05/15 at 2058 | | | | | | + +---------+ +---+ +---+ +---+---+ | | | +---+---+ + +---------+ +---+ +---+ | parenteral nutrition (adult) | New Bag | 09/05/19 | | 75 mL/hr | | | at 75 mL/hr, intravenous, TPN | | 16 9:20 | | | | | 2100, Starting 09/05/15 at | | PM PST | | | | | 2100, Until 09/06/15 at 2058 | | | | | | + +---------+ +---+ +---+ +---+---+ | | | +---+---+ + +---------+ +---+ +---+ | parenteral nutrition (adult) | New Bag | 09/06/19 | | 75 mL/hr | | | at 75 mL/hr, intravenous, TPN | | 16 9:00 | | | | | 2100, Starting Sun09/06/15 at | | PM PST | | | | | 2100, Until Sun09/07/15 at 2058 | | | | | | + +---------+ +---+ +---+ +---+---+ | | | +---+---+ + +---------+ +---+ +---+ | parenteral nutrition (adult) | New Bag | 09/07/19 | | 75 mL/hr | | | at 75 mL/hr, intravenous, TPN | | 16 9:59 | | | | | 2100, Starting Sun09/07/15 at | | PM PST | | | | | 2100, Until Sun09/08/15 at 2058 | | | | | | + +---------+ +---+ +---+ +---+---+ | | | +---+---+ + +---------+ +---+ +---+ | parenteral nutrition (adult) | New Bag | 09/08/19 | | 75 mL/hr | | | at 75 mL/hr, intravenous, TPN | | 16 9:52 | | | | | 2100, Starting Sun09/08/15 at | | PM PST | | | | | 2100, Until Sun09/09/15 at 2058 | | | | | | + +---------+ +---+ +---+ +---+---+ | | | +---+---+ + +---------+ +---+ +---+ | parenteral nutrition (adult) | New Bag | 09/09/19 | | 75 mL/hr | | | at 75 mL/hr, intravenous, TPN | | 16 9:45 | | | | | 2100, Starting Sun09/09/15 at | | PM PST | | | | | 2100, Until Sun09/10/15 at 2058 | | | | | | + +---------+ +---+ +---+ +---+---+ | | | +---+---+ + +---------+ +--------+---+---+ | pentamidine (PENTAM) IV 300 mg | New Bag | 09/12/19 | 300 mg | | | | 300 mg, intravenous, ONCE, 1 | | 16 9:01 | | | | | dose, 09/12/15 at 0900 | | AM PST | | | | + +---------+ +--------+---+---+ +---+---+ | | | +---+---+ + +---------+ +-------+---+---+ | piperacillin-tazobactam (ZOSYN) | New Bag | 09/05/19 | 4.5 g | | | | IV 4.5 g 4.5 g, intravenous, | | 16 11:29 | | | | | EVERY 6 HOURS, 12 doses, First | | AM PST | | | | | dose (after last modification) on | | | | | | | 09/03/15 at 1000, Last dose | | | | | | | on 09/06/15 at 0600 | | | | | | + +---------+ +-------+---+---+ +---------+ +-------+---+---+ | New Bag | 09/05/19 | 4.5 g | | | | | 16 5:56 | | | | | | AM PST | | | | +---------+ +-------+---+---+ | New Bag | 09/05/19 | 4.5 g | | | | | 16 12:06 | | | | | | AM PST | | | | +---------+ +-------+---+---+ +---+---+ | | | +---+---+ + +-------+ +------+---+---+ | polyethylene glycol (MIRALAX) | Given | 08/21/19 | 17 g | | | | powder 17 g 17 g, oral, DAILY | | 16 8:09 | | | | | NEEDED, Starting Sun08/20/15 at | | AM PST | | | | | 1904, Until Sun09/13/15 at 2144, | | | | | | | constipation | | | | | | + +-------+ +------+---+---+ +-------+ +------+---+---+ | Given | 08/20/19 | 17 g | | | | | 16 7:32 | | | | | | PM PST | | | | +-------+ +------+---+---+ +---+---+ | | | +---+---+ + +---------+ +--------+---+---+ | potassium chloride IV (central | New Bag | 09/02/19 | 40 mEq | | | | line) 40 mEq 40 mEq, | | 16 4:08 | | | | | intravenous, NEEDED, Starting | | AM PST | | | | | 08/18/15 at 1643, Until Mon | | | | | | | 09/13/15 at 2144, potassium level | | | | | | | of 3-3.4 mmol/L | | | | | | + +---------+ +--------+---+---+ +---+---+ | | | +---+---+ + +---------+ +-------+---+---+ | prochlorperazine (COMPAZINE) | New Bag | 08/23/19 | 10 mg | | | | injection 5-10 mg 5-10 mg, | | 16 8:33 | | | | | intravenous, EVERY 4 HOURS | | PM PST | | | | | NEEDED, Starting 08/18/15 at | | | | | | | 1904, Until [facility] 08/26/15 at 1249, | | | | | | | nausea/vomiting | | | | | | + +---------+ +-------+---+---+ +---------+ +-------+---+---+ | New Bag | 08/22/19 | 10 mg | | | | | 16 11:05 | | | | | | AM PST | | | | +---------+ +-------+---+---+ +---+---+ | | | +---+---+ + +-------+ +-------+---+---+ | prochlorperazine (COMPAZINE) | Given | 08/24/19 | 10 mg | | | | tablet 10 mg 10 mg, oral, EVERY | | 16 4:22 | | | | | 6 HOURS, 8 doses, First dose on | | PM PST | | | | | 08/23/15 at 1000, Last dose on | | | | | | | 08/25/15 at 0400 | | | | | | + +-------+ +-------+---+---+ +-------+ +-------+---+---+ | Given | 08/24/19 | 10 mg | | | | | 16 9:43 | | | | | | AM PST | | | | +-------+ +-------+---+---+ | Given | 08/24/19 | 10 mg | | | | | 16 3:28 | | | | | | AM PST | | | | +-------+ +-------+---+---+ +---+---+ | | | +---+---+ + +---------+ +-------+---+---+ | promethazine (PHENERGAN) | New Bag | 08/28/19 | 25 mg | | | | injection 12.5-25 mg 12.5-25 mg, | | 16 8:47 | | | | | intravenous, EVERY 6 HOURS | | AM PST | | | | | NEEDED, Starting [place] 08/26/15 at | | | | | | | 1157, Until Sun09/13/15 at 2144, | | | | | | | nausea/vomiting | | | | | | + +---------+ +-------+---+---+ +---------+ +-------+---+---+ | New Bag | 08/28/19 | 25 mg | | | | | 16 3:16 | | | | | | AM PST | | | | +---------+ +-------+---+---+ | New Bag | 08/27/19 | 25 mg | | | | | 16 7:48 | | | | | | PM PST | | | | +---------+ +-------+---+---+ +---+---+ | | | +---+---+ + + + +---------+---+---+ | scopolamine (TRANSDERM-SCOPE) | Applied | 09/07/19 | 1 patch | | | | 1.5 mg (1 mg over 3 days) 1 patch | Patch | 16 8:48 | | | | | 1 patch, transdermal, EVERY 72 | | AM PST | | | | | HOURS, First dose on Sun08/26/15 | | | | | | | at 0800, Until Discontinued | | | | | | + + + +---------+---+---+ + + +---------+---+---+ | Applied Patch | 09/04/19 | 1 patch | | | | | 16 8:44 | | | | | | AM PST | | | | + + +---------+---+---+ | Applied Patch | 09/01/19 | 1 patch | | | | | 16 9:46 | | | | | | AM PST | | | | + + +---------+---+---+ +---+---+ | | | +---+---+ + + + + +---+---+ | senna-docusate (SENOKOT S) | See OB | 08/23/19 | 1 tablet | | | | 8.6-50 mg 1 tablet 1 tablet, | TraceVue | 16 9:26 | | | | | oral, DAILY, First dose on [facility] | | AM PST | | | | | 08/19/15 at 0900, Until | | | | | | | Discontinued | | | | | | + + + + +---+---+ +-------+ + +---+---+ | Given | 08/22/19 | 1 tablet | | | | | 16 9:06 | | | | | | AM PST | | | | +-------+ + +---+---+ | Given | 08/21/19 | 1 tablet | | | | | 16 8:08 | | | | | | AM PST | | | | +-------+ + +---+---+ +---+---+ | | | +---+---+ + + + + +---+---+ | senna-docusate (SENOKOT S) | See OB | 08/23/19 | 1 tablet | | | | 8.6-50 mg 1-2 tablet 1-2 tablet, | TraceVue | 16 9:26 | | | | | oral, EVERY 12 HOURS NEEDED, | | AM PST | | | | | Starting 08/18/15 at 1643, | | | | | | | Until 09/13/15 at 2144, | | | | | | | constipation | | | | | | + + + + +---+---+ +-------+ +---------+---+---+ | Given | 08/22/19 | 2 | | | | | 16 11:55 | tablets | | | | | PM PST | | | | +-------+ +---------+---+---+ | Given | 08/19/19 | 2 | | | | | 16 11:45 | tablets | | | | | PM PST | | | | +-------+ +---------+---+---+ +---+---+ | | | +---+---+ + +-------+ +-------+---+---+ | sertraline (ZOLOFT) tablet 25 | Given | 09/13/19 | 25 mg | | | | mg 25 mg, oral, DAILY, First | | 16 8:01 | | | | | dose on [facility] 08/19/15 at 0900, | | AM PST | | | | | Until Discontinued | | | | | | + +-------+ +-------+---+---+ +-------+ +-------+---+---+ | Given | 09/12/19 | 25 mg | | | | | 16 9:01 | | | | | | AM PST | | | | +-------+ +-------+---+---+ | Given | 09/11/19 | 25 mg | | | | | 16 9:47 | | | | | | AM PST | | | | +-------+ +-------+---+---+ +---+---+ | | | +---+---+ + +-------+ +---------+---+---+ | sodium chloride (OCEAN) 0.65 % | Given | 08/31/19 | 1 spray | | | | nasal spray 1 spray 1 spray, | | 16 12:36 | | | | | nasal, EVERY 1 HOUR NEEDED, | | AM PST | | | | | Starting 08/18/15 at 1643, | | | | | | | Until Sun09/13/15 at 2144, dry | | | | | | | nose | | | | | | + +-------+ +---------+---+---+ +---+---+ | | | +---+---+ + +---------+ +---------+---+---+ | sodium phosphate IV 30 mmol 30 | New Bag | 09/03/19 | 30 mmol | | | | mmol, intravenous, NEEDED, | | 16 10:19 | | | | | Starting Sun08/18/15 at 1643, | | PM PST | | | | | Until Sun09/13/15 at 2144, | | | | | | | phosphate level 1.6-2 mg/dL | | | | | | + +---------+ +---------+---+---+ +---+---+ | | | +---+---+ + +-------+ +------+---+---+ | tacrolimus (PROGRAF) capsule 2 | Given | 09/13/19 | 2 mg | | | | mg 2 mg, oral, TWICE DAILY, | | 16 8:01 | | | | | First dose on Sun09/10/15 at 2100, | | AM PST | | | | | Until Discontinued | | | | | | + +-------+ +------+---+---+ +-------+ +------+---+---+ | Given | 09/12/19 | 2 mg | | | | | 16 8:41 | | | | | | PM PST | | | | +-------+ +------+---+---+ | Given | 09/12/19 | 2 mg | | | | | 16 9:01 | | | | | | AM PST | | | | +-------+ +------+---+---+ +---+---+ | | | +---+---+ + + + +--------+-------+---+ | tacrolimus IV continuous | Rate/Dos | 09/09/19 | 1.8 mg | 4.18 | | | infusion (100 mL dilution) 1.8 | e Verify | 16 10:02 | | mL/hr | | | mg, intravenous, EVERY 24 HOURS, | | PM PST | | | | | 2 doses, First dose on 09/08/15 | | | | | | | at 2100, Last dose on Sun09/09/15 | | | | | | | at 2100 | | | | | | + + + +--------+-------+---+ + + +--------+-------+---+ | New Bag | 09/09/19 | 1.8 mg | 4.18 | | | | 16 9:43 | | mL/hr | | | | PM PST | | | | + + +--------+-------+---+ | Rate/Dose Verify | 09/08/19 | 1.8 mg | 4.18 | | | | 16 9:55 | | mL/hr | | | | PM PST | | | | + + +--------+-------+---+ +---+---+ | | | +---+---+ + +---------+ +--------+--------+---+ | tacrolimus IV intermittent (100 | New Bag | 08/26/19 | 1.2 mg | 50.12 | | | mL dilution) 1.2 mg, | | 16 10:38 | | mL/hr | | | intravenous, EVERY 12 HOURS, | | AM PST | | | | | First dose on Sun08/24/15 at | | | | | | | 0900, Until Discontinued | | | | | | + +---------+ +--------+--------+---+ +---------+ +--------+--------+---+ | New Bag | 08/25/19 | 1.2 mg | 50.12 | | | | 16 10:58 | | mL/hr | | | | PM PST | | | | +---------+ +--------+--------+---+ | New Bag | 08/25/19 | 1.2 mg | 50.12 | | | | 16 9:49 | | mL/hr | | | | AM PST | | | | +---------+ +--------+--------+---+ +---+---+ | | | +---+---+ + +---------+ +--------+--------+---+ | tacrolimus IV intermittent (100 | New Bag | 09/02/19 | 1.1 mg | 50.11 | | | mL dilution) 1.1 mg, | | 16 8:23 | | mL/hr | | | intravenous, EVERY 12 HOURS, | | AM PST | | | | | First dose (after last | | | | | | | modification) on 08/30/15 at | | | | | | | 2100, Until Discontinued | | | | | | + +---------+ +--------+--------+---+ +---------+ +--------+--------+---+ | New Bag | 09/01/19 | 1.1 mg | 50.11 | | | | 16 9:11 | | mL/hr | | | | PM PST | | | | +---------+ +--------+--------+---+ | New Bag | 09/01/19 | 1.1 mg | 50.11 | | | | 16 8:41 | | mL/hr | | | | AM PST | | | | +---------+ +--------+--------+---+ +---+---+ | | | +---+---+ + +---------+ +--------+--------+---+ | tacrolimus IV intermittent (100 | New Bag | 09/07/19 | 1.4 mg | 50.14 | | | mL dilution) 1.4 mg, | | 16 8:41 | | mL/hr | | | intravenous, EVERY 12 HOURS, | | AM PST | | | | | First dose (after last | | | | | | | modification) on [facility] 09/02/15 at | | | | | | | 2100, Until Discontinued | | | | | | + +---------+ +--------+--------+---+ +---------+ +--------+--------+---+ | New Bag | 09/06/19 | 1.4 mg | 50.14 | | | | 16 9:38 | | mL/hr | | | | PM PST | | | | +---------+ +--------+--------+---+ | New Bag | 09/06/19 | 1.4 mg | 50.14 | | | | 16 9:31 | | mL/hr | | | | AM PST | | | | +---------+ +--------+--------+---+ +---+---+ | | | +---+---+ + +---------+ +--------+--------+---+ | tacrolimus IV intermittent (50 | New Bag | 08/30/19 | 0.9 mg | 25.09 | | | mL dilution) 0.9 mg, | | 16 8:29 | | mL/hr | | | intravenous, EVERY 12 HOURS, | | AM PST | | | | | First dose (after last | | | | | | | modification) on Sun08/27/15 at | | | | | | | 0900, Until Discontinued | | | | | | + +---------+ +--------+--------+---+ +---------+ +--------+--------+---+ | New Bag | 08/29/19 | 0.9 mg | 25.09 | | | | 16 9:31 | | mL/hr | | | | PM PST | | | | +---------+ +--------+--------+---+ | New Bag | 08/29/19 | 0.9 mg | 25.09 | | | | 16 8:01 | | mL/hr | | | | AM PST | | | | +---------+ +--------+--------+---+ +---+---+ | | | +---+---+ + +-------+ +---+---+---+ | triamcinolone acetonide | Given | 09/12/19 | | | | | (KENALOG) 0.1 % cream topical, | | 16 10:49 | | | | | TWICE DAILY, First dose on Sun | | AM PST | | | | | 3/2/16 at 0900, Until | | | | | | | Discontinued | | | | | | + +-------+ +---+---+---+ +-------+ +---+---+---+ | Given | 09/10/19 | | | | | | 16 9:09 | | | | | | AM PST | | | | +-------+ +---+---+---+ | Given | 09/09/19 | | | | | | 16 10:00 | | | | | | PM PST | | | | +-------+ +---+---+---+ +---+---+ | | | +---+---+ + +-------+ + +---+---+ | trimethoprim-sulfamethoxazole | Given | 08/24/19 | 1 tablet | | | | (BACTRIM DS,SEPTRA DS) 160-800 mg | | 16 8:36 | | | | | tablet 1 tablet 1 tablet, oral, | | PM PST | | | | | TWICE DAILY, 13 doses, First | | | | | | | dose on Sun08/18/15 at 2100, Last | | | | | | | dose on Sun08/24/15 at 2100 | | | | | | + +-------+ + +---+---+ +-------+ + +---+---+ | Given | 08/24/19 | 1 tablet | | | | | 16 9:43 | | | | | | AM PST | | | | +-------+ + +---+---+ | Given | 08/23/19 | 1 tablet | | | | | 16 9:24 | | | | | | PM PST | | | | +-------+ + +---+---+ +---+---+ | | | +---+---+ + +-------+ +--------+---+---+ | ursodiol (ACTIGALL) capsule 300 | Given | 09/13/19 | 300 mg | | | | mg 300 mg, oral, TWICE DAILY, | | 16 8:01 | | | | | 59 doses, First dose on Sun | | AM PST | | | | | 08/18/15 at 2100, Last dose on [facility] | | | | | | | 09/16/15 at 2100 | | | | | | + +-------+ +--------+---+---+ +-------+ +--------+---+---+ | Given | 09/12/19 | 300 mg | | | | | 16 8:41 | | | | | | PM PST | | | | +-------+ +--------+---+---+ | Given | 09/12/19 | 300 mg | | | | | 16 9:01 | | | | | | AM PST | | | | +-------+ +--------+---+---+ +---+---+ | | | +---+---+ + +-------+ +--------+---+---+ | valACYclovir (VALTREX) tablet | Given | 09/03/19 | 500 mg | | | | 500 mg 500 mg, oral, TWICE | | 16 8:26 | | | | | DAILY, First dose on Sun08/27/15 | | AM PST | | | | | at 0900, Until Discontinued | | | | | | + +-------+ +--------+---+---+ +-------+ +--------+---+---+ | Given | 09/02/19 | 500 mg | | | | | 16 8:02 | | | | | | PM PST | | | | +-------+ +--------+---+---+ | Given | 02/25/20 | 500 mg | | | | | 16 8:32 | | | | | | AM PST | | | | +-------+ +--------+---+---+ +---+---+ | | | +---+---+ + +-------+ +--------+---+---+ | valACYclovir (VALTREX) tablet | Given | 09/13/19 | 500 mg | | | | 500 mg 500 mg, oral, TWICE | | 16 8:01 | | | | | DAILY, First dose on Sun09/09/15 | | AM PST | | | | | at 1100, Until Discontinued | | | | | | + +-------+ +--------+---+---+ +-------+ +--------+---+---+ | Given | 09/12/19 | 500 mg | | | | | 16 8:41 | | | | | | PM PST | | | | +-------+ +--------+---+---+ | Given | 09/12/19 | 500 mg | | | | | 16 9:01 | | | | | | AM PST | | | | +-------+ +--------+---+---+ +---+---+ | | | +---+---+ + +---------+ + +---+---+ | vancomycin (VANCOCIN) IV 1,250 | New Bag | 08/28/19 | 1,250 mg | | | | mg 1,250 mg, intravenous, EVERY | | 16 8:40 | | | | | 8 HOURS, First dose on Sat | | AM PST | | | | | 08/21/15 at 1715, Until | | | | | | | Discontinued | | | | | | + +---------+ + +---+---+ +---------+ + +---+---+ | New Bag | 08/28/19 | 1,250 mg | | | | | 16 1:38 | | | | | | AM PST | | | | +---------+ + +---+---+ | New Bag | 08/27/19 | 1,250 mg | | | | | 16 5:06 | | | | | | PM PST | | | | +---------+ + +---+---+ +---+---+ | | | +---+---+ + +---------+ + +---+---+ | vancomycin (VANCOCIN) IV 1,500 | New Bag | 09/03/19 | 1,500 mg | | | | mg 1,500 mg, intravenous, EVERY | | 16 8:26 | | | | | 8 HOURS, First dose (after last | | AM PST | | | | | modification) on 08/28/15 at | | | | | | | 1700, Until Discontinued | | | | | | + +---------+ + +---+---+ +---------+ + +---+---+ | New Bag | 09/02/19 | 1,500 mg | | | | | 16 11:29 | | | | | | PM PST | | | | +---------+ + +---+---+ | New Bag | 09/02/19 | 1,500 mg | | | | | 16 4:23 | | | | | | PM PST | | | | +---------+ + +---+---+ +---+---+ | | | +---+---+ + +---------+ + +---+---+ | vancomycin (VANCOCIN) IV 1,750 | New Bag | 09/04/19 | 1,750 mg | | | | mg 1,750 mg, intravenous, EVERY | | 16 4:41 | | | | | 8 HOURS, First dose (after last | | PM PST | | | | | modification) on Sun09/03/15 at | | | | | | | 1600, Until Discontinued | | | | | | + +---------+ + +---+---+ +---------+ + +---+---+ | Bag | 09/04/19 | 1,750 mg | | | | | 16 8:45 | | | | | | AM PST | | | | +---------+ + +---+---+ | Bag | 09/04/19 | 1,750 mg | | | | | 16 12:46 | | | | | | AM PST | | | | +---------+ + +---+---+ +---+---+ | | | +---+---+ + +---------+ + +---+---+ | vancomycin (VANCOCIN) IV 1,750 | New Bag | 09/06/19 | 1,750 mg | | | | mg 1,750 mg, intravenous, EVERY | | 16 9:46 | | | | | 12 HOURS, First dose (after last | | PM PST | | | | | modification) on 09/05/15 at | | | | | | | 0900, Until Discontinued | | | | | | + +---------+ + +---+---+ +---------+ + +---+---+ | New Bag | 09/06/19 | 1,750 mg | | | | | 16 9:31 | | | | | | AM PST | | | | +---------+ + +---+---+ | New Bag | 09/05/19 | 1,750 mg | | | | | 16 9:20 | | | | | | PM PST | | | | +---------+ + +---+---+ +---+---+ | | | +---+---+ documented in this encounter
--- OUTSIDE RECORDS SUMMARY | ~2019-05-17 | XMS | Encounter Summary ---
Demographics + + + | Address | [address] | | | [place] [address] | + + + | Home Phone [...] Team Providers + +------+ + | Care Mat Repairer Name | Role | Phone | + +------+ + | Zayda Hinton | PCP | | + +------+ + Encounter Details +--------+ + + + + | Date | Type | Department | Care Team | Description | +--------+ + + + + | 05/01/ | Pharmacy | Specialty Pharmacy | | | | 2015 | Visit | Services [address] | | | | | | [address] | | | | | | [place], [place] | | | | | | [address] | | | | | | [phone] | | | +--------+ + + + [...] 2019 | Visit | Malignancy | [address] [facility] | | | | | | [address] | | | | | | [place], [place] | | | | | | [address] | | | | | | [phone] | | | | | | | | +--------+---------+ + + + documented as of this encounter Visit Diagnoses Not on filedocumented in this encounter"
--- OUTSIDE RECORDS SUMMARY | ~2019-05-17 | XMS | Encounter Summary ---
Demographics + + + | Address | [address] | | | [place] [address] | + + + | Home Phone [...] Team Providers + +------+ + | Care Steam Hammer Operator Name | Role | Phone | + +------+ + | Zayda Hinton | PCP | | + +------+ + Encounter Details +--------+ + + + + | Date | Type | Department | Care Team | Description | +--------+ + + + + | 10/26/ | Pharmacy | Specialty Pharmacy | | | | 2016 | Visit | Services [address] | | | | | | [address] | | | | | | [place], [place] | | | | | | [address] | | | | | | [phone] | | | +--------+ + + + [...] 2019 | Visit | Malignancy | [address] [facility] | | | | | | [address] | | | | | | [place], [place] | | | | | | [address] | | | | | | [phone] | | | | | | | | +--------+---------+ + + + documented as of this encounter Visit Diagnoses Not on filedocumented in this encounter"
--- OUTSIDE RECORDS SUMMARY | ~2019-05-17 | XMS | Encounter Summary ---
Demographics + + + | Address | [address] | | | [place] [address] | + + + | Home Phone [...] Team Providers + +------+ + | Care Shade Bander Name | Role | Phone | + +------+ + | Pending Pcp Addition | PCP | Unavailable | + +------+ + Reason for Visit + + + | Reason | Comments | + + + | Lab Draw | neostar | + + + | Chemotherapy | [...] | ic leukemia, | [address] | [facility] | | | | | not having | [address] | [address] | | | | | achieved | [place], [place] | Rd Mailcode: | | | | | remission | [address] | [id number] | | | | | Procedures | Phone: | [place] | | | | | [place] | [phone] | Pavilion | | | | | AZACITIDINE | Fax: | [place], [place] | | | | | INJECTION, 1 | [phone] | [address] | | | | | [place] | | Phone: | | | | | [facility],IV | | [phone] | | | | | INFSN,1 HR | | Fax: | | | | | [place] [facility] | | [phone] | | | | | INFSN,ADDL | | | | | | | HR Vidaza | | | +--------+---------+ + + + + Encounter Details +--------+ + + + + | Date | Type | Department | Care Team | Description | +--------+ + + + + | 11/29/ | Clinical | Center for | | Lab Draw (neostar); | | 2015 | Support | Hematologic | | Chemotherapy | | | Staff | [facility] | | ([email or web address]) | | | | [address] | | | | | | [place] Mailcode: | | | | | | [id number] [place] | | | | | | [place], | | | | | | [place] [address] | | | | | | [phone] | | | +--------+ + + + [...] + + + | Blood Pressure | 112/78 | 11/30/2015 8:30 AM | | | | | PDT | | + + + + + | Pulse | 73 | 11/30/2015 8:30 AM | | | | | PDT | | + + + + + | Temperature | 36.7 C (98 F) | 11/30/2015 8:30 AM | | | | | PDT | | + + + + + | Respiratory Rate | 16 | 11/30/2015 8:30 AM | | | | | PDT | | + + + + + | Oxygen Saturation | 100% | 11/30/2015 8:30 AM | | | | | PDT | | + + + + + | Inhaled Oxygen | - | - | | | Concentration | | | | + + + + + | Weight | 84.5 kg (186 lb 4.6 | 11/30/2015 8:30 AM | | | | oz) | PDT | | + + + + + | Height | - | - | | + + + + + | Body Mass Index | 24.08 | 08/18/2015 4:35 PM | | | | | PST | | + + + + + documented in this encounter Patient Instructions Patient Instructions Diana Hodgson RN - 11/30/2015 9:20 AM PDTPrecautions after Miladys motherapy Most chemotherapy drugs are passed from your body in 24 to 48 hours. Until that time, ther e are special precautions you should take. The guidelines below are to protect the people y ou live with from the drugs(s) you were given. If you have any questions, please be sure to ask your doctor or nurse. 1. If you have two bathrooms, you should use only one of them. If possible, have your fami ly use the other. 2. Flush the toilet three times each time you use it. Make sure the toilet lid is down whe n you flush. Keep the lid down between uses. 3. If your clothing or bedding or towels get soiled with urine or vomit or stool or blood, they should be washed separately from other laundry. Use detergent and bleach to wash them. 4. Anyone helping you with cleaning up stool, urine, vomit or blood should wear gloves. Th ey should wear gloves to empty the basin after you vomit. 5. You should have a separate basin to use if you vomit. This should not be used for anyth ing else. The vomit should be flushed down the toilet and the basin washed with detergent a nd rinsed well. Dump the rinse water in the toilet, too. Remember to flush three times. 6. Do not have sex for 48 hours. 7. If your are getting chemotherapy at home, we will give you a special red bag and sharps container. Put all used "sharps" (syringes with needles, broken vials) in the sharps contai ner. Put other used supplies in the bag. Bring them back to clinic when you come for your next visit. Until then, keep the bag and container closed and away from where children migh t open them. Remember that you need to follow these rules only for the first 48 hours (2 days) after you r chemotherapy. Be sure to ask us if you have any questions. We will be happy to talk with you. documented in this encounter Progress Notes Diana Hodgson RN - 11/30/2015 8:36 AM PDT Chemotherapy Nurse Note Name: Khurram Navaleland Date: 11/30/2015 Physician: Yari Garcia MD Allergies: Khurram is allergic to chlorhexidine towelette. Pre-Chemotherapy Pain Score: Patient reports a pain level of 0 today. Narrative: pt ambulated to infusion room for Day 2 cycle 2 of Vidaza. Nursing Assessment: Fever: no; Diarrhea: no; SOB / Cough: no; Nausea / Vomiting: yes - nausea and vomiting last night. 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 Cream ordered and starting today Vascular Access: Neostar accessed per protocol. Good blood return noted. Appropriate wast e discarded. Labs drawn and sent. Neostar pulse flushed with 20 mL NS. Patient reports th at they did not take their tacroliumus prior to clinic visit. They report taking a dose of 1 mg BID. Patient provided a phone number in which he would like to be contacted and provided 's alternate number in case he cannot be reached, they were advised that they would rece mickey a call with any dose adjustments this evening. All 3 lumens flushed with NS and Heparin per protocol Labs: Lab Results Component Value Date WBC 6.3 11/29/2015 HB 12.7* 11/29/2015 HCT 37.1* 11/29/2015 PLT 72* 11/29/2015 BUN 19 11/29/2015 CR 0.9 11/29/2015 For Treatment Done in Clinic Today: see MAR Treatment Provided: Labs results from yesterday reviewed and met protocol parameters. Pre-medications of zofran 8mg given as ordered. Chemotherapy was checked by 2 RNs. Vidaza 70mg was infused per chemotherapy protocol and c ompleted without adverse event. Positive blood return noted pre and post infusion. For inf usion details, see MAR. Patient was reminded to call clinic with temp > 100.4, chills, s/s of bleeding or uncontrol led N/V/D/C. Patient verbalizes understanding. Patient was instructed to check out at the ont desk prior to leaving the clinic. Patient d/c d ambulatory. Diana Hodgson RN documented in thi s [...] Rd | | | | | | [place], [place] | | | | | | [address] | | | | | | [phone] | | | | | | | | +--------+---------+ + + + documented as of this encounter Procedures + +--------+ + + + | Procedure Name | Priori | Date/Time | Associated Diagnosis | Comments | | | ty | | | | + +--------+ + + + | TREATMENT PARAMETERS | Routin | 11/30/2015 | 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 | 7:45 AM | leukemia (AML), 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 | | | | | | induction failure | | + +--------+ + + + | TREATMENT PARAMETERS | Routin | 11/30/2015 | 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 | 7:45 AM | leukemia (AML), 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 | | | | | | induction failure | | + +--------+ + + + | TREATMENT PARAMETERS | Routin | 11/30/2015 | 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 | 7:45 AM | leukemia (AML), 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 | | | | | | induction failure | | + +--------+ + + + | TREATMENT PARAMETERS | Routin | 11/30/2015 | 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 | 7:45 AM | leukemia (AML), 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 | | | | | | induction failure | | + +--------+ + + + | TREATMENT PARAMETERS | Routin | 11/30/2015 | 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 | 7:45 AM | leukemia (AML), M4 | | | | | PDT | ([facility])- primary | | | | | | induction failure | | + +--------+ + + + | NURSING | Routin | 11/30/2015 | Acute myeloid | | | COMMUNICATION #3 - | e | 7:45 AM | leukemia (AML), M4 | | | [facility] | | PDT | ([facility])- primary | | | | | | induction failure | | + +--------+ + + + | NURSING | Routin | 11/30/2015 | Acute myeloid | | | COMMUNICATION #2 - | e | 7:45 AM | leukemia (AML), M4 | | | [facility] | | PDT | ([facility])- primary | | | | | | induction failure | | + +--------+ + + + | NURSING | Routin | 11/30/2015 | Acute myeloid | | | COMMUNICATION #1 - | e | 7:45 AM | leukemia (AML), M4 | | | [facility] | | PDT | ([facility])- primary | | | | | | induction failure | | + +--------+ + + + | TREATMENT PARAMETERS | Routin | 11/30/2015 | Acute myeloid | | | #1 - [facility] | e | 7:45 AM | leukemia (AML), M4 | | | | | PDT | ([facility])- primary | | | | | | induction failure | | + +--------+ + + + | TREATMENT PARAMETERS | Routin | 11/30/2015 | Acute myeloid | | | #1 - [facility] | e | 7:45 AM | leukemia (AML), M4 | | | | | PDT | ([facility])- primary | | | | | | induction failure | | + +--------+ + + + | LIVER SET | Urgent | 11/30/2015 | S/P allogeneic | Results for this | | (AST,ALT,BILI | | 7:45 AM | bone marrow | procedure are [...] + | TACROLIMUS, WHOLE | Routin | 11/30/2015 | S/P allogeneic | Results for this | | BLOOD | e | 7:45 AM | bone marrow | procedure are [...] LIVER SET (AST,ALT,BILI TOTAL,BILI DIRECT,ALK PHOS,ALB,PROT TOTAL) (11/30/2015 7:45 AM PDT ) + +---------+ + + [...] +---------+ + + + | AST(SGOT) | 39 | <=41 U/L | [facility] | | | | | | LABORATORY | | | | | | SERVICES, | | | | | | CORE | | + +---------+ + + + | ALT (SGPT) | 100 (H) | <=60 U/L | [facility] | [...] | + + + + + | [facility] | [address] | [place] [address] | | | SERVICES, CORE | [address] | | | + + + + + TACROLIMUS, WHOLE BLOOD (11/30/2015 7:45 AM PDT) + +-------+ + + + [...] + + + + + | [facility] | [address] | [place] [address] | | | SERVICES, SPECIAL | [address] [...] 70 mg in | New Bag | 11/30/19 | 70 mg | 214 | Central | | NaCl 0.9 % IV 70 mg (rounded | | 16 9:05 | | mL/hr | Line | | from 67.84 mg = 32 mg/m2 | | AM PDT | | | | | 2.12 m2 Treatment plan recorded | | | | | | | BSA), intravenous, Administer | | | | | | | over 30 Minutes, ONCE, 1 dose, | | | | | | | 11/30/15 at 0815, HIGH RISK | | | | | | | MEDICATION-CHEMOTHERAPY | | | | | | | Administration must be completed | | | | | | | within 1 hour of preparation., | | | | | | + +---------+ +-------+-------+ + +---+---+ | | | +---+---+ + +-------+ + +---+---+ | heparin 10 unit/mL IV flush | Given | 11/30/19 | 50 Units | | | | syringe 50 Units 50 Units, | | 16 9:57 | | | | | Intracatheter, NEEDED, | | AM PDT | | | | | Starting 11/30/15 at 0855, | | | | | | | Until 11/30/15 at 1701, line | | | | | | | patency | | | | | | + +-------+ + +---+---+ +-------+ + +---+---+ | Given | 11/30/19 | 50 Units | | | | | 16 9:56 | | | | | | AM PDT | | | | +-------+ + +---+---+ | Given | 11/30/19 | 50 Units | | | | | 16 9:55 | | | | | | AM PDT | | | | +-------+ + +---+---+ +---+---+ | | | +---+---+ + +-------+ +------+---+---+ | ondansetron (ZOFRAN) tablet 8 | Given | 11/30/19 | 8 mg | | | | mg 8 mg, oral, ONCE, 1 dose, Tue | | 16 8:29 | | | | | 11/30/15 at 0815 | | AM PDT | | | | + +-------+ +------+---+---+ +---+---+ | | | +---+---+ documented in this encounter
--- OUTSIDE RECORDS SUMMARY | ~2019-05-17 | XMS | Encounter Summary ---
Demographics + + + | Address | [address] | | | [place] [address] | + + + | Home Phone [...] Team Providers + +------+ + | Care Enchilada Maker Name | Role | Phone | + +------+ + | Zayda Hinton | PCP | | + +------+ + Encounter Details +--------+---------+ + + + | Date | Type | Department | Care Team | Description | +--------+---------+ + + + | 09/17/ | Office | Center for | Yari Garcia MD | S/P allogeneic bone | | 2018 | Visit | Hematologic | [address] | marrow transplant | | | | Malignancies at | [address] | (HCC) (Primary Dx) | | | | [facility] | [place], [place] | | | | | [address] | [address] | | | | | Debi Burger Mailcode: | [phone] | | | | | [facility] | | | | | | [place], | | | | | | [place] [address] | | | | | | [phone] | | | +--------+---------+ + + + [...] + + + | Blood Pressure | 121/68 | 09/17/2017 10:05 AM | | | | | PDT | | + + + + + | Pulse | 70 | 09/17/2017 10:05 AM | | | | | PDT | | + + + + + | Temperature | 36.8 C (98.3 F) | 09/17/2017 10:05 AM | | | | | PDT | | + + + + + | Respiratory Rate | 18 | 09/17/2017 10:05 AM | | | | | PDT | | + + + + + | Oxygen Saturation | 99% | 09/17/2017 10:05 AM | | | | | PDT | | + + + + + | Inhaled Oxygen | - | - | | | Concentration | | | | + + + + + | Weight | 72.1 kg (158 lb 15.2 | 09/17/2017 10:05 AM | | | | oz) | PDT | | + + + + + | Height | - | - | | + + + + + | Body Mass Index | 19.87 | 04/02/2017 1:46 PM | | | | | PDT | | + + + + + documented in this encounter Patient Instructions Patient Instructions Christina Hernandez RN - 09/17/2017 10:35 AM PDTStop the ursodiol Prednisone change to 5 mg once every other day for a month Check out at the hotel front desk clerk today and make your next appointments. You can also call the charley at [phone]. If you have any questions, or if you need prescription refills, or are experiencing any sym ptoms or side effects please call our twist maker at [phone] documented in this encounter Progress Notes Yari Garcia MD - 09/17/2017 10:35 AM PDT 09/17/17 [facility] Primary [facility] MD: Yari Garcia MD Primary Oncologist: Yari Garcia MD Diagnosis: AMML, primary refractory Transplant Date: 08/27/15 Donor: MMURD (DPB1 permissive antigen mismatch, male, [id number]) Identifying Data: Khurram Kelly is a 27 [...] his L ankle. He was evaluated at [facility] ED on 06/[address] angiogram [...] CD34, variable CD56, variable CD117, and dim QI915-dbric mickey; promonocyte immunophenotype (70% by flow): CD11b, [...] total hip arthroplasty. He is currently 2 yearss/p transplant, s/p 6 cyclesof azacitidine and returns to clinic today for scheduled follow-up. Interim History: Lonurns to clinic and is doing fairly well overall. He remains limited by his hip pain and strength - notes progressive atrophy of his right quads and walk s with an uneven gait. He is not taking pain medicines because of family issues (brothers g irlfriend with addiction issues). He is planning on having his hip replaced with Dr. Jeffers in December - he will need to stay in the [place] area for several days post-op and cannot do that until December when Lynne has time off nursing school and be his auto carrier driver/caregiver. Khurram continues to be the primary caregiver for his son, his nephew, and now a new puppy . He is very much looking forward to returning to work, feels that this will be less stress ful than current home obligations. Has resumed a general diet - eating carbs (rest of family is on 'keto' diet). Has been weaning off xanax - mostly because insurance currently limits number and time of r efills. No fevers/chills. Weight stable. No nausea/vomiting. No SOB/CP. Review of Systems Constitutional: Negative for chills, fever and malaise/fatigue. HENT: Negative for headaches, congestion and sore throat. Eyes: Positive for blurred vision. Negative for double vision, pain and discharge. Respiratory: Negative for cough and [...] by mouth two times daily. Indications: gvhd PREDNISONE 10 mg oral tablet TAKE ONE TABLET BY MOUTH EVERY DAY ursodiol 300 mg oral capsule Take 1 capsule by mouth two times daily. No current facility-administered medications for this visit. No Known Allergies Last Vitals: BP 121/68 | Pulse 70 | Temp (Src) 36.8 C (98.3 F) (Oral) | RR 18 | Wt 72.1 kg (158 lb 15.2 oz) | SpO2 99% | BMI 19.87 kg/(m^2) Physical Exam Constitutional: He is well-developed, well-nourished, and in no distress. No distress. Thin CM in NAD HENT: Head: Normocephalic and atraumatic. Eyes: Conjunctivae are normal. Pupils are equal, round, and reactive to light. Right eye ex hibits no discharge. Left eye exhibits no discharge. No scleral icterus. Neck: Normal range of motion. Neck supple. Cardiovascular: Normal rate, regular rhythm, normal heart sounds and intact distal pulses. No murmur heard. Pulmonary/Chest: Effort normal and breath sounds normal. No respiratory distress. He has no wheezes. He has no rales. Abdominal: Soft. Bowel sounds are normal. He exhibits no distension. There is no tenderness . Musculoskeletal: He exhibits deformity. He exhibits no edema. Right hip with protuberant bone - atrophy noted in r quad compared to left Lymphadenopathy: He has no cervical adenopathy. Neurological: He is alert. Skin: Skin is warm and dry. No rash noted. He is not diaphoretic. Psychiatric: Mood and affect normal. Vitals reviewed. Hospital Outpatient Visit on 09/17/2017 Component Date Value FVC PRE 09/17/2017 7.04 FVC PRE (%REF) 09/17/2017 115 FEV1 PRE 09/17/2017 5.48 FEV1 PRE (%REF) 09/17/2017 110 FEV1/FVC PRE 09/17/2017 78 FEV1/FVC PRE (%REF) 09/17/2017 94 PEF PRE 09/17/2017 10.55 PEF PRE (%REF) 09/17/2017 95 EVN19-52% PRE 09/17/2017 4.92 XQQ23-86% PRE (%REF) 09/17/2017 99 FIF50% PRE 09/17/2017 7.22 FIF50% PRE (%REF) 09/17/2017 79 VC PRE 09/17/2017 7.11 VC PRE (%REF) 09/17/2017 121 IC PRE 09/17/2017 4.54 IC PRE (%REF) 09/17/2017 118 ERV PRE 09/17/2017 2.57 ERV PRE (%REF) 09/17/[address] PRE 09/17/[address] PRE (%REF) 09/17/2017 126 RV PRE 09/17/2017 2.18 RV PRE (%REF) 09/17/2017 124 TLC PRE 09/17/2017 9.29 TLC PRE (%REF) 09/17/2017 122 RV/TLC PRE 09/17/2017 23 DLCO PRE 09/17/2017 41.85 DLCO PRE (%REF) 09/17/2017 119 DLCO ADJ PRE 09/17/2017 43.11 DLCO ADJ PRE (%REF) 09/17/2017 122 DLCO/VA ADJ PRE 09/17/2017 5.10 DLCO/VA ADJ PRE (%REF) 09/17/2017 109 Diagnostic Visit on 09/17/2017 Component Date Value CHOLESTEROL (LAB) 09/17/2017 192 TRIGLYCERIDES 09/17/2017 73 HDL CHOLESTEROL 09/17/2017 51 HDL CMNT 09/17/2017 No Hemo LDL CHOLESTEROL, CALCULA* 09/17/2017 126* VLDL CHOLESTEROL, CALCUL* 09/17/2017 15 NON-HDL CHOLESTEROL 09/17/2017 141* WBC POC 09/17/2017 9.9 RBC POC 09/17/2017 4.36* HGB POC 09/17/2017 13.6 HCT POC 09/17/2017 40.3* MCV POC 09/17/2017 92.4 MCH POC 09/17/2017 31.2 MCHC POC 09/17/2017 33.7 RDW SD, POC 09/17/2017 45.7 PLT POC 09/17/2017 229 MPV POC 09/17/2017 7.9* NEUTROPHIL% POC 09/17/2017 79.8* LYMPH% POC 09/17/2017 10.5* MONO %, POC 09/17/2017 7.2 EOS %, POC 09/17/2017 2.2 BASO %, POC 09/17/2017 0.3 NEUTROPHIL# POC 09/17/2017 7.9* LYMPH# POC 09/17/2017 1.0 MONO #, POC 09/17/2017 0.7 EOS #, POC 09/17/2017 0.2 BASO #, POC 09/17/2017 0.0 SODIUM, POC 09/17/2017 137 POTASSIUM, POC 09/17/2017 3.7 TOTAL CO2, POC 09/17/2017 27 CHLORIDE, POC 09/17/2017 105 GLUCOSE, POC 09/17/2017 108* CALCIUM TOTAL, POC 09/17/2017 9.4 BUN, POC 09/17/2017 12 CREATININE, POC 09/17/2017 1.0 ALK PHOS, CMP POC 09/17/2017 62 ALT, CMP POC 09/17/2017 34 AST, CMP POC 09/17/2017 40 BILIRUBIN TOTAL, CMP POC 09/17/2017 0.9 ALBUMIN, CMP POC 09/17/2017 4.5 PROTEIN TOTAL, CMP POC 09/17/2017 7.3 Assessment/Plan: 1. 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 His most recent marrow studies completed 08/31/16 showed a normocellular marrow (30%) with trilineage hematopoiesis, marrow eosinophilia (~15%) and <2% myeloid bl asts. Karyotype 46,XY[20]. VNTR showed no detectable host cells. 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 Peripheral counts o/w WNL. --> continue CBC q4 weeks and prn --> no additional marrow studies indicated providing peripheral counts remain stable 2. 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 He initially responded but flared during taper. He also developed low-level nausea and abd discomfort concerning for GvHD, emp irically treated with oral non-absorbables with resolution. - He had tapered prednisone to 10 mg po daily when he developed a rash for which he was see n in the ED in [place] in late 01/21. Prednisone was increased back [...] fluconazole with resolution of upper GI symptoms -tapered off of tacrolimus as of 08/03/17 without flair -TODAY: No s/s active GvHD - though mild transaminitis with normal bilirubin.Continues MMF ER, prednisone 10 mg po daily. -->taper prednisone to 5mg every other day until return visit --> d/c ursodiol --> continue to avoid hepatotoxins (tylenol, etoh) --> continue to monitor for s/s active GvHD every visit --> PFTs stable today 3. Infectious Disease: Afebrile without localizing s/s infection. His most recent immune reconstitution panel collected 07/19/17 showed normal total T, B, NK cells. CD4 count 324. Post-transplant vaccines up-to-date save MMR and PPSV23; pt is ineligible for those vaccin es while he remains on IST. Received annual inactivated influenza vaccine on 05/24/17. --> acyclovir, continue until off all IST --> hold MMR and PPSV23 until pt off all IST x 1 year, then re-evaluate immune status --> counseled not to smoke pot (or anything else) 4. Fluid, Electrolyte and Nutrition: Eating well - normal diet. No c/o N/V/D. Adequat e po fluid intake noted. His electrolytes are reviewed and are within acceptable limits. --> continue a well balanced diet --> encouraged pt to have snacks handy in his car, at work, etc. -->maintain adequate hydration 5. Musculoskeletal: Hx of intermittent L hip pain. MRI 07/25/16 showed bilateral femoral hea d osteonecrosis with subchondral fracture and collapse of weightbearing L femoral head with suspected early cartilage disease. Underwent a total L hip arthroplasty on 09/07/16, pain reso lved. Developed severe R hip pain. Evaluated by Dr. Jeffers on 04/02/17; per pt report, janes t there may be a hairline fracture causing his pain. Pain initially resolved without addit ional intervention, but pain recurring with ambulation. No longer requiring analgesics. -->plan for hip replacement December 2017 6. Psychosocial: Hx anxiety. Feels his symptoms are well controlled at current dose of xanax 0.5 mg po BID. Feels he's better at handling life stressors. --> continue to taper xanax as tolerated 7. Anniversary testing: Currently pending are TSH, immune reconstitution panel, IgG, vishal ritin, vitD 25OH, hbgA1c. --> acceptable lipid panel --> ferritin 1049 - test yearly --> vitamin D - 30.6 - test yearly - should take vitD daily supplement (2000 units/day) --> hgb A1c 5.9 - recheck in 1 year, sooner if higher dose steroids 8. Follow up -->RTC in 6 weeks, sooner if interval issues Yari Garcia MD, MS Clipper Operatorjacquard card cutter [facility] [address] [place] [id number] documented in this enc ounter Plan of [...] 2018 | Visit | Malignancy | [address] | | | | | | [facility] | | | | | | [place], [place] | | | | | | [address] | | | | | | [phone] | | | | | | | | +--------+---------+ + + + documented as of this encounter Results CMP, POC (BMP+LFT) (09/17/2017 [...] [facility] | | | | | | [place] | | | | | | OF CARE | | | | | | TESTS | | + +---------+ + + + | PROTEIN | 7.3 | 6.1 - 7.9 g/dL | [facility] [...] [facility] | [address] | [place], [place] | | | RUTHIE CARTER OF CARE | [facility] | [address] | | | TESTS | | | | + + + + + CBC+PHIL GRIJALVA (09/17/2017 10:14 AM PDT) + + + [...] [facility] | [address] | [place], [place] | | | CHAYO CARTER | [facility] | [address] | | | TESTS | | | | + + + + + documented in this encounter Visit Diagnoses + + | Diagnosis | + + | 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
--- OUTSIDE RECORDS SUMMARY | ~2019-05-17 | XMS | Encounter Summary ---
Demographics + + + | Address | [address] | | | [place] [address] | + + + | Home Phone [...] Team Providers + +------+ + | Care Principal Technologist Name | Role | Phone | + +------+ + | Pending Pcp Addition | PCP | Unavailable | + +------+ + Reason for Visit + + + | Reason | Comments | + + + | Medication | Tacrolimus | + + + Encounter Details +--------+ + + + + | Date | Type | Department | Care Team | Description | +--------+ + + + + | 10/17/ | Telephone | Center for | Em Saunders, | Medication | | 2016 | | Hematologic | [facility] [address] | (Tacrolimus) | | | | Malignancies at | [address] | | | | | [facility] | [place], [place] | | | | | [address] | [address] | | | | | Debi Burger Mailcode: | [phone] | | | | | [facility] | | | | | | [place], | | | | | | [place] [address] | | | | | | [phone] | | | +--------+ + + + [...] [address] | | | | | | [place] | | | | | | [address] | | | | | | [phone] | | | | | | | | +--------+---------+ + + + documented as of this encounter Visit Diagnoses Not on filedocumented in this encounter"
--- OUTSIDE RECORDS SUMMARY | ~2019-05-17 | XMS | Encounter Summary ---
Demographics + + + | Address | [address] | | | [place] [address] | + + + | Home Phone [...] Team Providers + +------+ + | Care Practice Office Associate Name | Role | Phone | [...] Description | +--------+--------+ + + + | 12/26/ | Refill | Center for | Yari Garcia MD | Refill Request | | 2016 | | Hematologic | [address] | | | | | Malignancies at [facility] | [address] | | | | | [address] | [place], [place] | | | | | Debi Burger Mailcode: | [address] | | | | | [facility] | [phone] | | | | | [place], | | | | | | [place] [address] | | | | | | [phone] | | | +--------+--------+ + + + [...] Rd | | | | | | [place] | | | | | | [address] | | | | | | [phone] | | | | | | | | +--------+---------+ + + + documented as of this encounter Visit Diagnoses Not on filedocumented in this encounter"
--- OUTSIDE RECORDS SUMMARY | ~2019-05-17 | XMS | Encounter Summary ---
Demographics + + + | Address | [address] | | | [place] [address] | + + + | Home Phone [...] Team Providers + +------+ + | Care Network Director Name | Role | Phone | [...] | | | | | | | [address] | | | | | | | [address] | | | | | | | [place], | | | | | | | [place] | | | | | | | [address] | | | | | | | Phone: | | | | | | | [phone] | | | | | | | Fax: | | | | | | | [phone] | +--------+--------+ + + + + Encounter Details +--------+ + + + + | Date | Type | Department | Care Team | Description | +--------+ + + + + | 07/12/ | Clinical | Center for | | Lab Draw; Dressing | | 2016 | Support | Hematologic | | change | | | Staff | Malignancies at [facility] | | | | | | [address] | | | | | | Wally Burger Mailcode: | | | | | | [address] | | | | | | [place], | | | | | | [place] [address] | | | | | | [phone] | | | +--------+ + + + [...] + + + | Blood Pressure | 133/79 | 07/12/2015 3:21 PM | | | | | PST | | + + + + + | Pulse | 84 | 07/12/2015 3:21 PM | | | | | PST | | + + + + + | Temperature | 36.6 C (97.9 F) | 07/12/2015 3:21 PM | | | | | PST | | + + + + + | Respiratory Rate | 16 | 07/12/2015 3:21 PM | | | | | PST | | + + + + + | Oxygen Saturation | 100% | 07/12/2015 3:21 PM | | | | | PST | | + + + + + | Inhaled Oxygen | - | - | | | Concentration | | | | + + + + + | Weight | 84.8 kg (186 lb 15.2 | 07/12/2015 3:21 PM | | | | oz) | PST | | + + + + + | Height | - | - | | + + + + + | Body Mass Index | 23.49 | 05/27/2015 2:00 PM | | | | | PST | | + + + + + documented in this encounter Progress Notes Jessica Ramirez RN - 07/12/2015 4:10 PM PSTPatient arrives ambulatory with for lab draw and possible transfusions. 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 Reinduction with [facility] ( completed 06/16) awaiting Stem cell tx in August for aggressive disease. Patient reports he is feeling well today. He says his BM biopsy site is still bruised feel ing but denies signs of infection He says he feels better than his last visit when he neede d blood. The patient denies colds, flu, fever, infection, nausea, vomiting, diarrhea, consti pation, signs or symptoms of anemia, fatigue, edema, skin rash, urinary issues, and signs or symptoms of bleeding. The patient reports that he is eating well and drinking at least two liters of fluid daily. Power PICC accessed per protocol. Good blood return noted. Appropriate waste discarded. Labs drawn and sent. Power PICC pulse flushed with 20 mL NS. Potassium chloride 40 meq PO given per supportive care orders for a potassium level of 3.5. For infusion details, see SEP. Dressing change: Power PICC intact to right upper extremity without erythema or induration. Dressing removed, skin intact. No s/s exit site infection. 2 cm line exposed. Using a PI CC Dressing Change kit and sterile technique, site cleansed with Chloraprep. Skin prep appl ied prior to dressing application. Biopatch applied with SorbaView dressing. Positive pres sure valves changed to each port. All lumens pulse flushed with 10 mL NS. Patient tolerated procedure without difficulty. Labs resulted and no other replacements needed. Type and screen sent for possible transfus ion on the . documented in this encounter Plan of Treatment [...] Rd | | | | | | [place], [place] | | | | | | [address] | | | | | | [phone] | | | | | | | | +--------+---------+ + + + documented as of this encounter Procedures + +--------+ + + + | Procedure Name | Priori | Date/Time | Associated Diagnosis | Comments | | | ty | | | | + +--------+ + + + | ANTIBODY SCREEN | Urgent | 07/12/2015 | Acute myeloid | Results for this | | | | 4:31 PM | leukemia (AML), M4 | procedure are in the | | | | PST | ([facility]) | results section. | + +--------+ + + + | TYPE AND SCREEN | Urgent | 07/12/2015 | Acute myeloid | Results for this | | | | 4:31 PM | leukemia (AML), M4 | procedure are in the | | | | PST | ([facility]) | results section. | + +--------+ + + + | ABO & RH TYPE | Urgent | 07/12/2015 | Acute myeloid | Results for this | | | | 4:31 PM | leukemia (AML), M4 | procedure are in the | | | | PST | ([facility]) | results section. | + +--------+ + + + | BMP + MAG, POC CHM | Urgent | 07/12/2015 | Acute myeloid | Results for this | | | | 3:33 PM | leukemia (AML), M4 | procedure are in the | | | | PST | ([facility]) | results section. | + +--------+ + + + | CBC AND AUTO DIFF | Urgent | 07/12/2015 | Acute myeloid | Results for this | | | | 3:25 PM | leukemia (AML), M4 | procedure are in the | | | | PST | ([facility]) | results section. | + +--------+ + + + | MANUAL DIFFERENTIAL | Routin | 07/12/2015 | Acute myeloid | Results for this | | | e | 3:25 PM | leukemia (AML), M4 | procedure are in the | | | | PST | ([facility]) | results section. | + +--------+ + + + | CBC, WITH | Urgent | 07/12/2015 | Acute myeloid | Results for this | | DIFFERENTIAL | | 3:25 PM | leukemia (AML), M4 | procedure are in the | | | | PST | (HCC) | results section. | + +--------+ + + + | LIVER SET | Urgent | 07/12/2015 | Acute myeloid | Results for this | | (AST,ALT,BILI | | 3:25 PM | leukemia (AML), M4 | procedure are in the | | TOTAL,BILI | | PST | (HCC) | results section. | | DIRECT,ALK | | | | | | PHOS,ALB,PROT TOTAL) | | | | | + +--------+ + + + | PHOSPHORUS, PLASMA | Urgent | 07/12/2015 | Acute myeloid | Results for this | | | | 3:25 PM | leukemia (AML), M4 | procedure are in the | | | | PST | (HCC) | results section. | + +--------+ + + + | URIC ACID, PLASMA | Urgent | 07/12/2015 | Acute myeloid | Results for this | | | | 3:25 PM | leukemia (AML), M4 | procedure are in the | | | | PST | (HCC) | results section. | + +--------+ + + + documented in this encounter Results ANTIBODY SCREEN (07/12/2015 4:31 PM PST) + + + + + [...] [facility] | [address] | [place] [address] | | | SERVICES, | [address] | | | | TRANSFUSION MEDICINE | | | | + + + + + ABO & RH TYPE (07/12/2015 4:31 PM PST) + + + + + [...] | + + + + + | [facility] | [address] | [place] [address] | | | SERVICES, | [address] | | | | TRANSFUSION MEDICINE | | | | + + + + + BMP PLUS POC CHM (07/12/2015 3:33 PM PST) + +---------+ + [...] + + + | [facility] | [address] | [place], [place] | | | RUTHIE CARTER [facility] | [address] | [address] | | | TESTS | | | | + + + + + MANUAL DIFFERENTIAL (07/12/2015 3:25 PM PST) + + + + + + | Component | Value | Ref Range | Performed | Pathologist | | | | | At | Signature | + + + + + + | NEUTROPHIL | 0.6 (L) | 50.0 - 70.0 % | [facility] | | | % | | | LABORATORY | | | | | | SERVICES, | | | | | | CORE | | + + + + + + | LYMPHOCYTE | 45.2 (H) | 18.0 - 42.0 % | [facility] | | | % | | | LABORATORY | | | | | | SERVICES, | | | | | | CORE | | + + + + + + | MONOCYTE % | 39.9 (H) | 3.5 - 9.0 % | [...] + + + + | IG% | 14.3 (H)Comment: | 0.0 - 0.6 % | [facility] | | | | Immature Granulocytes | | LABORATORY | | | | (IG) include | | SERVICES, | | | | metamyelocytes, | | CORE | | | | myelocytes and | | | | | | promyelocytes. Bands are [...] + + + + | LYMPHOCYTE | 0.42 (L) | 1.00 - 4.80 | [facility] [...] + + + + | IG# | 0.13 (H) | 0.00 - 0.03 | [facility] [...] | + + + + + | [facility] | [address] | [place] [address] | | | SERVICES, CORE | [address] | | | + + + + + CBC AND AUTO DIFF (07/12/2015 3:25 PM PST) + + + + + + | Component | Value | Ref Range | Performed | Pathologist | | | | | At | Signature | + + + + + + | WHITE CELL | 0.93 (L) | 4.40 - 11.00 | [facility] [...] + + + | RDW SD | 34.5 (L) | 35.1 - 46.3 fL | [...] + + + + | [facility] | 9.5 (L) | 9.7 - 12.3 [...] At | + + + | Some monos look ben | [facility] | | | LABORATORY | | | KOLE, INDRA | + + + + + + + + | Performing | Address | City/State/Zipcode | Phone Number | | Organization | | | | + + + + + | [facility] | [address] | [place] [address] | | | INDRA SHARIF | [address] [...] [facility] | [address] | [place] [address] | | | SERVICES, CORE | [address] [...] [facility] | [address] | [place] [address] | | | SERVICES, CORE | [address] [...] | + + + + + | [facility] | [address] | [place] [address] | | | SERVICES, CORE | [address] [...] | | | + +--------+ +--------+------+------+ | potassium chloride SR (K-DUR) | Given | 07/12/19 | 40 mEq | | | | tablet 40 mEq 40 mEq, oral, | | 16 4:10 | | | | | ONCE, 1 dose, 07/12/15 at 1615 | | PM PST | | | | + +--------+ +--------+------+------+ +---+---+ | | | +---+---+ documented in this encounter"
--- OUTSIDE RECORDS SUMMARY | ~2019-05-17 | XMS | Encounter Summary ---
Demographics + + + | Address | [address] | | | [place] [address] | + + + | Home Phone [...] Providers + +------+ + | Care Director Process Name | Role | Phone | + +------+ + | Zayda Hinton | PCP | | + +------+ + Encounter Details +--------+ + + + + | Date | Type | Department | Care Team | Description | +--------+ + + + + | 10/12/ | Pharmacy | Specialty Pharmacy | | | | 2016 | Visit | Services [address] | | | | | | [address] | | | | | | [place], [place] | | | | | | [address] | | | | | | [phone] | | | +--------+ + + + [...] Rd | | | | | | [place], [place] | | | | | | [address] | | | | | | [phone] | | | | | | | | +--------+---------+ + + + documented as of this encounter Visit Diagnoses Not on filedocumented in this encounter"
--- OUTSIDE RECORDS SUMMARY | ~2019-05-17 | XMS | Encounter Summary ---
Demographics + + + | Address | [address] | | | [place] [address] | + + + | Home Phone [...] Providers + +------+ + | Care Head Of Conservation Name | Role | Phone | + +------+ + | Pending Pcp Addition | PCP | Unavailable | + +------+ + Reason for Visit + + + | Reason | Comments | + + + | Schedule labs | PICC | + + + | Chemotherapy | Decitabine | + + + | Transfusion | PRBCs | + + + Chemotherapy (Routine) +--------+--------+ [...] [address] | | | | | [place] | | [address] | | | | | [address]INE | | [address] [place], | | | | | INJECTION, 1 | | [place] | | | | | [place] | | [address] | | | | | CHM,IV | | Phone: | | | | | INFSN,1 HR | | [phone] | | | | | [place] CHM,IV | | Fax: | | | | | INFSN,ADDL | | [phone] | | | | | [place] | | | +--------+--------+ + + + + Encounter Details +--------+ + + + + | Date | Type | Department | Care Team | Description | +--------+ + + + + | 07/25/ | Clinical | Center for | | Schedule labs | | 2015 | Support | Hematologic | | (PICC); Chemotherapy | | | Staff | [facility] | | (Decitabine); | | | | [address] | | Transfusion (PRBCs) | | | | [address] Mailcode: | | | | | | [facility] | | | | | | [place], | | | | | | [place] [address] | | | | | | [phone] | | | +--------+ + + + [...] + + + | Blood Pressure | 109/68 | 07/25/2015 12:50 PM | | | | | PST | | + + + + + | Pulse | 69 | 07/25/2015 12:50 PM | | | | | PST | | + + + + + | Temperature | 37 C (98.6 F) | 07/25/2015 12:50 PM | | | | | PST | | + + + + + | Respiratory Rate | 16 | 07/25/2015 12:50 PM | | | | | PST | | + + + + + | Oxygen Saturation | 100% | 07/25/2015 12:50 PM | | | | | PST [...] encounter Progress Notes Jyoti Ramachandran RN - 07/25/2015 1:45 PM PST Patient reports he is feeling well today. Khurram has no complaints, except feeling sligh tly tired today. Pt states that he "feels like he needs blood today." The patient denies col ds, flu, fever, infection, nausea, vomiting, diarrhea, constipation, signs or symptoms of ne uropathy, mucositis, edema, skin rash, urinary issues, and signs or symptoms of bleeding. The patient reports that they often times have to be reminded to eat, but drinking at least two liters of fluid daily. PICC accessed per protocol. Good blood return noted. Appropriate waste discarded. Labs d rawn and sent. PICC pulse flushed with 20 mL NS. Chemotherapy was checked by 2 RNs. Decitabine was infused per chemotherapy protocol and co mpleted without adverse event. Positive blood return noted pre, during and post infusion. For infusion details, see MAR. Lab Results Component Value Date HCT 20.4 07/25/2015 HB 7.3 07/25/2015 Orders to transfuse PRBC product for a [...] | Visit | Malignancy | [address] | | | | | | [address] | | | | | | [place], [place] | | | | | | [address] | | | | | | [phone] | | | | | | | | +--------+---------+ + + + documented as of this encounter Procedures + +--------+ + + + | Procedure Name | Priori | Date/Time | Associated Diagnosis | Comments | | | ty | | | | + +--------+ + + + | PRODUCT - RED CELLS | Routin | 07/25/2015 | Acute myeloid | Results for this | | LEUKOREDUCED | e | 10:47 AM | leukemia (AML), M4 | procedure are in the | | | | PST | ([facility]) | results section. | + +--------+ + + + | CMP, POC (BMP+LFT) | Routin | 07/25/2015 | Acute myeloid | Results for this | | | e | 10:17 AM | leukemia (AML), M4 | procedure are in the | | | | PST | ([facility]) | results section. | + +--------+ + + + | TREATMENT PARAMETERS | Routin | 07/25/2015 | 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 | 10:01 AM | leukemia (AML), M4 | | | | | PST | ([facility]) | | + +--------+ + + + | TREATMENT PARAMETERS | Routin | 07/25/2015 | 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 | 10:01 AM | leukemia (AML), M4 | | | | | PST | ([facility]) | | + +--------+ + + + | TREATMENT PARAMETERS | Routin | 07/25/2015 | 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 | 10:01 AM | leukemia (AML), M4 | | | | | PST | ([facility]) | | + +--------+ + + + | TREATMENT PARAMETERS | Routin | 07/25/2015 | 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 | 10:01 AM | leukemia (AML), M4 | | | | | PST | ([facility]) | | + +--------+ + + + | TREATMENT PARAMETERS | Routin | 07/25/2015 | 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 | 10:01 AM | leukemia (AML), M4 | | | | | PST | ([facility]) | | + +--------+ + + + | NURSING | Routin | 07/25/2015 | Acute myeloid | | | COMMUNICATION #3 - | e | 10:01 AM | leukemia (AML), M4 | | | [facility] | | PST | ([facility]) | | + +--------+ + + + | NURSING | Routin | 07/25/2015 | Acute myeloid | | | COMMUNICATION #2 - | e | 10:01 AM | leukemia (AML), M4 | | | [facility] | | PST | ([facility]) | | + +--------+ + + + | NURSING | Routin | 07/25/2015 | Acute myeloid | | | COMMUNICATION #1 - | e | 10:01 AM | leukemia (AML), M4 | | | [facility] | | PST | ([facility]) | | + +--------+ + + + | TREATMENT PARAMETERS | Routin | 07/25/2015 | Acute myeloid | | | #1 - BEACON | e | 10:01 AM | leukemia (AML), M4 | | | | | PST | ([facility]) | | + +--------+ + + + | TREATMENT PARAMETERS | Routin | 07/25/2015 | Acute myeloid | | | #1 - BEACON | e | 10:01 AM | leukemia (AML), M4 | | | | | PST | ([facility]) | | + +--------+ + + + | RBC MORPHOLOGY | Routin | 07/25/2015 | Acute myeloid | Results for this | | | e | 10:01 AM | leukemia (AML), M4 | procedure are in the | | | | PST | ([facility]) | results section. | + +--------+ + + + | CBC AND AUTO DIFF | Urgent | 07/25/2015 | Acute myeloid | Results for this | | | | 10:01 AM | leukemia (AML), M4 | procedure are in the | | | | PST | ([facility]) | results section. | + +--------+ + + + | MANUAL DIFFERENTIAL | Routin | 07/25/2015 | Acute myeloid | Results for this | | | e | 10:01 AM | leukemia (AML), M4 | procedure are in the | | | | PST | ([facility]) | results section. | + +--------+ + + + | CBC, WITH | Urgent | 07/25/2015 | Acute myeloid | Results for this | | DIFFERENTIAL | | 10:01 AM | leukemia (AML), M4 | procedure are in the | | | | PST | ([facility]) | results section. | + +--------+ + + + | ANTIBODY SCREEN | Routin | 07/25/2015 | Acute myeloid | Results for this | | | e | 10:01 AM | leukemia (AML), M4 | procedure are in the | | | | PST | ([facility]) | results section. | + +--------+ + + + | TYPE AND SCREEN | Routin | 07/25/2015 | Acute myeloid | Results for this | | | e | 10:01 AM | leukemia (AML), M4 | procedure are in the | | | | PST | ([facility]) | results section. | + +--------+ + + + | ABO & RH TYPE | Routin | 07/25/2015 | Acute myeloid | Results for this | | | e | 10:01 AM | leukemia (AML), M4 | procedure are in the | | | | PST | ([facility]) | results section. | + +--------+ + + + | LDH TOTAL, PLASMA | Routin | 07/25/2015 | Acute myeloid | Results for this | | | e | 10:01 AM | leukemia (AML), M4 | procedure are in the | | | | PST | ([facility]) | results section. | + +--------+ + + + documented in this encounter Results PRODUCT - RED CELLS LEUKOREDUCED (07/25/2015 10:47 AM PST) + + + + + [...] + + + + | PRODUCT | [id number] | | [facility] | | | UNIT [...] + + + + | EXPIRATION | [id number] | | [facility] | | | DATE [...] + + + + | BLOOD | [id number] | | [facility] | | | PRODUCT [...] DEPARTMENT OF | [address] | [place] [address] | | | PATHOLOGY | [address] | | | + + + + + CMP METABOL,POC (07/25/2015 10:17 AM PST) + +---------+ + + + [...] + + + | ALT, CMP | 25 | 0 - 60 U/L | [facility] [...] SORTO | [address] | [place], [place] | | | RUTHIE CARTER OF [address] | [facility] | [address] | | | TESTS | | | | + + + + + RBC MORPHOLOGY (07/25/2015 10:01 AM PST) + + + + [...] [facility] | [address] | [place] [address] | | | SERVICES, CORE | [address] | | | + + + + + MANUAL DIFFERENTIAL (07/25/2015 10:01 AM PST) + + + + + + | Component | Value | Ref Range | Performed | Pathologist | | | | | At | Signature | + + + + + + | NEUTROPHIL | 12.8 (L) | 50.0 - 70.0 % | [facility] | | | % | | | LABORATORY | | | | | | SERVICES, | | | | | | CORE | | + + + + + + | LYMPHOCYTE | 18.1 | 18.0 - 42.0 % | [facility] | | | % | | | LABORATORY | | | | | | SERVICES, | | | | | | CORE | | + + + + + + | MONOCYTE % | 64.9 (H) | 3.5 - 9.0 % | [...] + + + + | ATYPICAL | 4.2 (H)Comment: Atypical | 0.0 % | [facility] | | | CELL % | Cells with fine | | LABORATORY | | | | chromatin, high N-C | | SERVICES, | | | | ratio, prominent | | CORE | | | | nucleoli and dark blue | | | | | | cytoplasm., Fine | | | | | | chromatin., Nuclear | | | | | | Folding., High N-C | | | | | | Ratio. | | | | + + + + + + | NEUTROPHIL | 0.12 (L) | 1.80 - 7.70 | [facility] | | | # | | K/cu mm | LABORATORY | | | | | | SERVICES, | | | | | | CORE | | + + + + + + | LYMPHOCYTE | 0.18 (L) | 1.00 - 4.80 | [facility] | | | # | | K/cu mm | LABORATORY | | | | | | SERVICES, | | | | | | CORE | | + + + + + + | MONOCYTE # | 0.63 | 0.10 - 0.90 | [facility] | [...] + + + + | ATYPICAL | 0.04 | K/cu mm | [facility] | | [...] | + + + + + | [facility] | [address] | [place] [address] | | | SERVICES, CORE | [address] | | | + + + + + CBC AND AUTO DIFF (07/25/2015 10:01 AM PST) + + + + + + | Component | Value | Ref Range | Performed | Pathologist | | | | | At | Signature | + + + + + + | WHITE CELL | 0.97 (L) | 4.40 - 11.00 | [facility] [...] + + + + | HEMATOCRIT | 20.4 (L) | 41.0 - 53.0 % | [facility] | | | | | | LABORATORY | | | | | | SERVICES, | | | | | | CORE | | + + + + + + | MCV | 80.0 | 80.0 - 96.0 fL | [facility] [...] + + + | RDW SD | 32.3 (L) | 35.1 - 46.3 fL | [...] + + + + | MPV | 11.4 | 9.7 - 12.3 fL | [facility] [...] [facility] | [address] | [place] [address] | | | SERVICES, CORE | [address] | | | + + + + + ANTIBODY SCREEN (07/25/2015 10:01 AM PST) + + + + [...] | + + + + + | [facility] | [address] | [place] [address] | | | SERVICES, | [address] | | | | TRANSFUSION MEDICINE | | | | + + + + + ABO & RH TYPE (07/25/2015 10:01 AM PST) + + + + [...] [facility] | [address] | [place] [address] | | | SERVICES, | [address] | | | | TRANSFUSION MEDICINE | | | | + + + + + LDH TOTAL, PLASMA (07/25/2015 10:01 AM PST) + +---------+ + + + [...] | + + + + + | [facility] | [address] | [place] [address] | | | SERVICES, INDRA | [address] | | | + [...] 42 mg in | New Bag | 07/25/19 | 42 mg | 258.4 | | | NaCl (PF) IV 42 mg (20 mg/m2 | | 16 11:20 | | mL/hr | | | 2.1 m2 Treatment plan recorded | | AM PST | | | | | BSA), intravenous, Administer | | | | | | | over 1 Hours, ONCE, 1 dose, Sun | | | | | | | 07/25/15 at 1015, HIGH RISK | | | | | | | MEDICATION-CHEMOTHERAPY , | | | | | | + +---------+ +-------+--------+------+ +---+---+ | | | +---+---+ + +-------+ +-------+---+---+ | diphenhydrAMINE (BENADRYL) | Given | 07/25/19 | 25 mg | | | | capsule 25 mg 25 mg, oral, EVERY | | 16 11:07 | | | | | 6 HOURS NEEDED, Starting Sun | | AM PST | | | | | 07/25/15 at 1047, Until Sun | | | | | | | 07/25/15 at 1947, allergic | | | | | | | reaction, as needed prior to | | | | | | | transfusion | | | | | | + +-------+ +-------+---+---+ +---+---+ | | | +---+---+ + +-------+ +------+---+---+ | ondansetron (ZOFRAN) tablet 8 | Given | 07/25/19 | 8 mg | | | | mg 8 mg, oral, ONCE, 1 dose, Sun | | 16 10:35 | | | | | 07/25/15 at 1015 | | AM PST | | | | + +-------+ +------+---+---+ +---+---+ | | | +---+---+ documented in this encounter
--- OUTSIDE RECORDS SUMMARY | ~2019-05-17 | XMS | Encounter Summary ---
Demographics + + + | Address | [address] | | | [place] [address] | + + + | Home Phone [...] Providers + +------+ + | Care Steam Box Hand Name | Role | Phone | [...] | | | | | [facility]ign[facility] at [facility] | [address] | | | | | [address] | [address] [place], [place] | | | | | [address] Mailcode: | [address] | | | | | [address] | [phone] | | | | | [place], | | | | | | [place] [address] | | | | | | [phone] | | | +--------+--------+ + + + [...] Rd | | | | | | [facility] [place] | | | | | | [address] | | | | | | [phone] | | | | | | | | +--------+---------+ + + + documented as of this encounter Visit Diagnoses Not on filedocumented in this encounter"
--- OUTSIDE RECORDS SUMMARY | ~2019-05-17 | XMS | Encounter Summary ---
Demographics + + + | Address | [address] | | | [place] [address] | + + + | Home Phone [...] Team Providers + +------+ + | Care Trial Mgr Name | Role | Phone | + +------+ + | Zayda Hinton | PCP | | + +------+ + Encounter Details +--------+ + + + + | Date | Type | Department | Care Team | Description | +--------+ + + + + | 09/12/ | Pharmacy | Specialty Pharmacy | | | | 2015 | Visit | Services [address] | | | | | | [address] | | | | | | [place], [place] | | | | | | [address] | | | | | | [phone] | | | +--------+ + + + [...] 2019 | Visit | Malignancy | [address] [facility] | | | | | | [address] | | | | | | [place], [place] | | | | | | [address] | | | | | | [phone] | | | | | | | | +--------+---------+ + + + documented as of this encounter Visit Diagnoses Not on filedocumented in this encounter"
--- OUTSIDE RECORDS SUMMARY | ~2019-05-17 | XMS | Encounter Summary ---
Demographics + + + | Address | [address] | | | [place] [address] | + + + | Home Phone [...] Team Providers + +------+ + | Care De Icer Element Winder Name | Role | Phone | [...] Radiology | Diagnoses | Jose | [facility] | | | | | S/P | Yari Jones MD | [address] | | | | | allogeneic | [address] | [address] | | | | | bone marrow | [address] | Tao | | | | | transplant | [address] | Mailcode: | | | | | ([facility]) | [place], [place] | [address] | | | | | Procedures | [address] | [place] | | | | | MRI HIP LT W | Phone: | Research | | | | | CONT ME | [phone] | Center | | | | | MRI, JOINT | Fax: | [place], [place] | | | | | OF LEG | [phone] | [address] | | | | | W/CONTRAST | | Phone: | | | | | | | [phone] | | | | | | | Fax: | | | | | | | [phone] | +--------+--------+ + + + + Encounter Details +--------+ + + + + | Date | Type | Department | Care Team | Description | +--------+ + + + + | 07/25/ | Hospital | Diagnostic Imaging | Yari Garcia MD | | | 2017 | Encounter | Services at [facility] | [address] | | | | | [address] | [address] | | | | | [address]bi Burger Mailcode: | [place], [place] | | | | | [address] [place] | [address] | | | | | [facility] | [phone] | | | | | [facility] [place] | | | | | | [address] | | | | | | [phone] | | | +--------+ + + + [...] Rd | | | | | | [place], [place] | | | | | | [address] | | | | | | [phone] | | | | | | | | +--------+---------+ + + + documented as of this encounter Visit Diagnoses + + | Diagnosis | + + | 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
--- OUTSIDE RECORDS SUMMARY | ~2019-05-17 | XMS | Encounter Summary ---
Demographics + + + | Address | [address] | | | [place] [address] | + + + | Home Phone [...] Team Providers + +------+ + | Care Typesetters Printer Name | Role | Phone | + [...] | +--------+ + + + + | 09/16/ | Telephone | Center for | Em Saunders, | Medication | | 2016 | | Hematologic | PA-C [address] | management | | | | [facility] | [address] | (Tacrolimus) | | | | [address] | [place], [place] | | | | | Debi Tao Mailcode: | [address] | | | | | [address] | [phone] | | | | | [place], | | | | | | [place] [address] | | | | | | [phone] | | | +--------+ + + + [...] | | | | | | [place] | | | | | | [address] | | | | | | [phone] | | | | | | | | +--------+---------+ + + + documented as of this encounter Visit Diagnoses Not on filedocumented in this encounter"
--- OUTSIDE RECORDS SUMMARY | ~2019-05-17 | XMS | Encounter Summary ---
Demographics + + + | Address | [address] | | | [place] [address] | + + + | Home Phone [...] Team Providers + +------+ + | Care Corporate Technical Recruiter Name | Role | Phone | + [...] | | | | | achieved | [facility], [place] | [facility] | | | | | remission | [address] | [place] | | | | | | Phone: | [place] | | | | | | [phone] | [place], [place] | | | | | | Fax: | [address] | | | | | | [phone] | Phone: | | | | | | | [phone] | | | | | | | Fax: | | | | | | | [phone] | +--------+---------+ + + + + Encounter Details +--------+---------+ + + + | Date | Type | Department | Care Team | Description | +--------+---------+ + + + | 08/20/ | Office | Center for | Yari Garcia MD | Immunocompromised | | 2018 | Visit | Hematologic | [address] | state associated | | | | Malignancies at | [address] | with stem cell | | | | Christian Barry | [place], [place] | transplant (HCC) | | | | [address] | [address] | (Primary Dx); S/P | | | | Debi Burger Mailcode: | [phone] | allogeneic bone | | | | [facility] [place] | | marrow transplant | | | | Asha Rodriguez, | | ([facility]) | | | | [place] [address] | | | | | | [phone] | | | +--------+---------+ + + + [...] + + + | Blood Pressure | 124/64 | 08/20/2017 2:05 PM | | | | | PST | | + + + + + | Pulse | 65 | 08/20/2017 2:05 PM | | | | | PST | | + + + + + | Temperature | 36.7 C (98 F) | 08/20/2017 2:05 PM | | | | | PST | | + + + + + | Respiratory Rate | 17 | 08/20/2017 2:05 PM | | | | | PST | | + + + + + | Oxygen Saturation | 99% | 08/20/2017 2:05 PM | | | | | PST | | + + + + + | Inhaled Oxygen | - | - | | | Concentration | | | | + + + + + | Weight | 74.2 kg (163 lb 9.3 | 08/20/2017 2:05 PM | | | | oz) | PST | | + + + + + | Height | - | - | | + + + + + | Body Mass Index | 20.45 | 04/02/2017 1:46 PM | | | | | PDT | | + + + + + documented in this encounter Patient Instructions Patient Instructions Christina Hernandez RN - 08/20/2017 1:55 PM PSTJeremiah Please call and re-schedule the PFTs PFL [facility] 3rd floor Room [address] [place] [phone] "Clinic " We will start tapering some of the medications 1) Prednisone ---take 10 mg alternating with 5 mg every other day x 2 weeks Then take 5 mg every day x [address] Garcia would like you to gain some weight -- eat a normal diet Then return to see Dr. Garcia in a month Check out at the credit front office developer today and make your next appointments. You can also call the flaco whitehead at [phone]. If you have any questions, or if you need prescription refills, or are experiencing any sym ptoms or side effects please call our marine engine driver at [phone] documented in this encounter Progress Notes Yari Garcia MD - 08/20/2017 1:55 PM PST 08/20/17 [facility] Primary [facility] MD: Yari Garcia MD Primary Oncologist: Yari Garcia MD Diagnosis: AMML, primary refractory Transplant Date: 08/27/15 Donor: MMURD (DPB1 permissive antigen mismatch, male, [id number]) Identifying Data: Khurram Kelly is a 27 [...] his L ankle. He was evaluated at [facility] ED on 06/[address] angiogram negative [...] CD34, variable CD56, variable CD117, and dim CX539-flowl mickey; promonocyte immunophenotype (70% by flow): CD11b, [...] History: Lonurns to clinic and is doing ok overall. He is really pleased with the functionality of his left hip, but is very limited by his right hip. He can do li Agisticsd activities, but if active on it one day, is basically unable to walk the next day. Ca n no longer exercise, walk for prolonged periods due to severity of pain. With significant family issues around opiate abuse, he is loath to resume any opiate pain m edications, so has been trying to limit activity and is very hopeful that he can get the rig ht hip replaced so he can resume normal activities. Currently, is watching his son and nephew at home during daytime, hoping to get pain under control enough to go back to work soon. Anxious to establish own home soon independent of h is parents. Significant distress and anxiety with living in parents home. Has been gradually tapering off alprazolam. Has not noted any changes in skin/mouth symptoms since discontinuation of tacrolimus on 07/10 6. Does not change in eyeglass prescription - but does not currently have vision coverage t o get new glasses. Insurance changed after turning 27, now on OHP. Review of Systems Constitutional: Negative for chills, [...] 0.5 mg oral capsule Take 0.5 mg by mouth every other morning Indications: GV HD No current facility-administered medications for this visit. No Known Allergies Last Vitals: BP 124/64 | Pulse 65 | Temp (Src) 36.7 C (98 F) (Oral) | RR 17 | Wt 74.2 k g (163 lb 9.3 oz) | SpO2 99% | BMI 20.45 kg/(m^2) Physical Exam Constitutional: He is well-developed, well-nourished, and in no distress. No distress. Thin CM in NAD HENT: Head: Normocephalic and atraumatic. Eyes: Conjunctivae are normal. Pupils are equal, round, and reactive to light. Neck: Normal range of motion. Neck supple. [...] exhibits no edema. Right hip with protuberant bone/muscle wasting - Greater trochanter? Lymphadenopathy: He has no cervical adenopathy. Neurological: He is alert. Skin: Skin is warm and dry. No rash noted. He is not diaphoretic. Psychiatric: Mood and affect normal. Vitals reviewed. Appointment on 08/20/2017 Component Date Value WBC POC 08/20/2017 8.7 RBC POC 08/20/2017 4.46* HGB POC 08/20/2017 14.1 HCT POC 08/20/2017 42.3 MCV POC 08/20/2017 94.8 MCH POC 08/20/2017 31.6 MCHC POC 08/20/2017 33.3 RDW SD, POC 08/20/2017 45.3 PLT POC 08/20/2017 326 MPV POC 08/20/2017 7.7* NEUTROPHIL% POC 08/20/2017 76.7* LYMPH% POC 08/20/2017 11.7* MONO %, POC 08/20/2017 10.3* EOS %, POC 08/20/2017 0.8* BASO %, POC 08/20/2017 0.5 NEUTROPHIL# POC 08/20/2017 6.7 LYMPH# POC 08/20/2017 1.0 MONO #, POC 08/20/2017 0.9 EOS #, POC 08/20/2017 0.1 BASO #, POC 08/20/2017 0.0 CBC COMMENT, POC 08/20/2017 Imm GRan. SODIUM, POC 08/20/2017 138 POTASSIUM, POC 08/20/2017 4.1 TOTAL CO2, POC 08/20/2017 28 CHLORIDE, POC 08/20/2017 103 GLUCOSE, POC 08/20/2017 94 CALCIUM TOTAL, POC 08/20/2017 9.8 BUN, POC 08/20/2017 7 CREATININE, POC 08/20/2017 0.8 ALK PHOS, CMP POC 08/20/2017 86 ALT, CMP POC 08/20/2017 107* AST, CMP POC 08/20/2017 56* BILIRUBIN TOTAL, CMP POC 08/20/2017 0.6 ALBUMIN, CMP POC 08/20/2017 4.0 PROTEIN TOTAL, CMP POC 08/20/2017 7.5 Assessment/Plan: 1. Hematology: Khurram Kelly is currently2 [...] indicated providing peripheral counts remain stable 2. 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 He initially responded but flared during taper. He also developed low-level nausea and abd discomfort concerning for GvHD, emp irically treated with oral non-absorbables with resolution. - He had tapered prednisone to 10 mg po daily when he developed a rash for which he was see n in the ED in [place] in late 01/21. Prednisone was increased back [...] 10 mg po daily. 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 Infectious Disease: Afebrile without [...] Fluid, Electrolyte and Nutrition: Eating well - tends to lose weight during viral URI s, but has recently been gaining. Family is on ketogenic diet which has been limiting his f ood choices. No c/o N/V/D. Adequate po fluid intake noted. His electrolytes are reviewed a nd are within acceptable limits. --> continue a [...] Jeffers on 04/02/17; per pt report, aristides medellin there may be a hairline fracture causing his pain. Pain initially resolved without addit ional intervention, but pain recurring with ambulation. No longer requiring analgesics. -->advised pt to contact Dr. Jeffers's office to arrange f/u with consideration for hip re placement in 09/23 6. Psychosocial: Hx anxiety. Feels his symptoms are well controlled at current dose of xanax 0.5 mg po BID. Feels he's better at handling life stressors. --> continue to taper xanax as tolerated 7. Anniversary testing: Currently pending are TSH, immune reconstitution panel, IgG, vishal ritin, vitD 25OH, hbgA1c. Fasting lipid panel ordered for today, however pt did not fast. --> lipid panel again with next visit (today's panel done after drinking a latte) 8. Follow up -->RTC in 4 weeks, sooner if interval issues, obtain PFTs that day Yari Garcia MD, MS Music Leaderbeef grinder [facility] [address] [place] [address] documented in this enc ounter Plan of [...] Rd | | | | | | [place], [place] | | | | | | [address] | | | | | | [phone] | | | | | | | | +--------+---------+ + + + documented as of this encounter Procedures + +--------+ + + + | Procedure Name | Priori | Date/Time | Associated Diagnosis | Comments | | | ty | | | | + +--------+ + + + | HEMOGLOBIN A1C, | Routin | 08/20/2017 | S/P allogeneic | Results for this | | BLOOD | e | 2:00 PM | bone marrow | procedure are in the | | | | PST | transplant (HCC) | results section. | + +--------+ + + + documented in this encounter Results HEMOGLOBIN A1C, BLOOD (08/20/2017 2:00 PM PST) + + + + + + | Component | Value | Ref Range | Performed | Pathologist | | | | | At | Signature | + + + + + + | HEMOGLOBIN | 5.9 (H)Comment: Hgb A1C | <5.7 % | [facility] | | | A1C | Interpretive | [...] | [facility] | | considered for monitoring mcc glycemic control in patients with: | LABORATORY [...] | + + + + + | [facility] | [address] | [place] [address] | | | SERVICES, SPECIAL | PARK [...]
--- OUTSIDE RECORDS SUMMARY | ~2019-05-17 | XMS | Encounter Summary ---
Demographics + + + | Address | [address] | | | [place] [address] | + + + | Home Phone [...] Team Providers + +------+ + | Care Utilization Review Specialist Name | Role | Phone | [...] [address] | | | | | [place] | | [address] | | | | | [place] | | [place], | | | | | INJE[address], [address] | | [place] | | | | | [place] | | [address] | | | | | CH[facility],IV | | Phone: | | | | | INFSN,1 HR | | [phone] | | | | | [place] [facility],[place] | | Fax: | | | | | INFSN,ADDL | | [phone] | | | | | HR | [...] | | | | | | [id number] | | | | | | [address], | | | | | | [place] [address] | | | | | | [phone] | | | +--------+ + + + [...] Rd | | | | | | [place], [place] | | | | | | [address] | | | | | | [phone] | | | | | | | [...]
--- OUTSIDE RECORDS SUMMARY | ~2019-05-17 | XMS | Encounter Summary ---
Demographics + + + | Address | [address] | | | [place] [address] | + + + | Home Phone [...] Team Providers + +------+ + | Care Potato Loader Name | Role | Phone | + +------+ + | Zayda Hinton | PCP | | + +------+ + Encounter Details +--------+ + + + + | Date | Type | Department | Care Team | Description | +--------+ + + + + | 04/15/ | Pharmacy | Outpatient Retail | | | | 2016 | Visit | [facility] | | | | | | [address] | | | | | | [place], | | | | | | [place] [address] | | | +--------+ + + + [...] | Visit | Malignancy | [address] [facility] | | | | | | [address] | | | | | | [place], [place] | | | | | | [address] | | | | | | [phone] | | | | | | | | +--------+---------+ + + + documented as of this encounter Visit Diagnoses Not on filedocumented in this encounter"
--- OUTSIDE RECORDS SUMMARY | ~2019-05-17 | XMS | Encounter Summary ---
Demographics + + + | Address | [address] | | | [place] [address] | + + + | Home Phone [...] Team Providers + +------+ + | Care Shallot Cleaner Name | Role | Phone | [...] | | | | | achieved | [place], [place] | [id number] | | | | | remission | [address] | [place] | | | | | | Phone: | Pavilion | | | | | Procedures | [phone] | [place], [place] | | | | | [place] | Fax: | [address] | | | | | PATIENT | [phone] | Phone: | | | | | LEVEL V | | [phone] | | | | | | | Fax: | | | | | | | [phone] | + +--------+ + + + + Encounter Details +--------+---------+ + + + | Date | Type | Department | Care Team | Description | +--------+---------+ + + + | 11/18/ | Office | [facility] for | Aspen Cummins FNP | 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 | Visit | Hematologic | [address] | stem cell transplant | | | | Malignancies at H2 | [address] | (HCC) (Primary Dx); | | | | [address] | [place], [place] | Electrolyte | | | | Mailcode: Center | [id number] | abnormality; GVHD | | | | for Health and | [phone] | (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 host | | | | Healing, Building [address] | | disease) (HCC); | | | | [place], [place] | | Other fci | | | | [address] | | (current) drug | | | | [phone] | | therapy | +--------+---------+ + + + Social History [...] + + + | Blood Pressure | 121/53 | 11/18/2018 10:44 AM | | | | | PDT | | + + + + + | Pulse | 68 | 11/18/2018 10:44 AM | | | | | PDT | | + + + + + | Temperature | 37 C (98.6 F) | 11/18/2018 10:44 AM | | | | | PDT | | + + + + + | Respiratory Rate | 18 | 11/18/2018 10:44 AM | | | | | PDT | | + + + + + | Oxygen Saturation | 99% | 11/18/2018 10:44 AM | | | | | PDT | | + + + + + | Inhaled Oxygen | - | - | | | Concentration | | | | + + + + + | Weight | 75.6 kg (166 lb 9.6 | 11/18/2018 10:44 AM | | | | oz) | PDT | | + + + + + | Height | - | - | | + + + + + | Body Mass Index | 21.22 | 10/21/2018 11:43 AM | | | | | PDT | | + + + + + documented in this encounter Patient Instructions Patient Instructions Aspen Cummins FNP - 11/18/2018 10:20 AM PDT1. YOU ARE DOING GREAT! 2. Decrease prednisone to 9 mg by mouth once daily. In two weeks, drop to 8 mg by mouth o nce daily. Continue to decrease by 1 mg/day every 2 weeks as tolerated until you get to 5 mg daily, then hold. 3. Continue to work on regaining weight, eating every 3 hours 4. 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 He was evaluated at [facility] on 06/[address] angiogram negative [...] leukemia. He was referred to [facility] for further evaluation and man agement of his newly dx'd AML. Pt was admitted to [facility] on 05/26/15. Peripheral blood was sent for [...] CD34, variable CD56, variable CD117, and dim [id number] mickey; promonocyte immunophenotype (70% by flow): CD11b, [...] hip arthroplasty. He is currently 3 years, 3monthss/p transplant, s/p 6 cyclesof azacitidine and return s to clinic today for scheduled follow-up. Interim History: Clary most recently [facility] by andra 10/21/18. 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 He was unable to afford both Restasis and fluoro metholone, therefore has been using only the steroid eye gtt. Feels it's helping his eyes bu t continues with c/o dry, irritated eyes. He is scheduled for f/u at [facility] this afternoon. Continues with c/o R hip pain. He is looking forward to hip replacement surgery and is sche duled to reconnect with Dr. Jeffers today as well. 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 He is able to work a 6 hr shift if he has time off during the day to rest. After a longer shift, he is unable to do much around the ho use. Denies c/o oral discomfort, difficulty swallowing, SOB/ROJAS, N/V/D or skin changes. Working on resetting his metabolism, trying to eat q3 hrs to increase his overall po intake. Notes his appetite has increased a bit since starting this a week ago. He reports intermittent loo se stools, 3-4 times daily. Intermittent abd cramping but not daily. Continues prednisone 10 mg po daily which he feels has helped his intermittent lightheadedn ess. He is scheduled for an ENT evaluation in January, on the cancellation list. Review of Systems Constitutional: Negative for chills, fever and malaise/fatigue. HENT: Negative for headaches, congestion and sore throat. Respiratory: Negative for cough and shortness of breath. Cardiovascular: Negative for chest pain and leg swelling. Gastrointestinal: Negative for abdominal pain, diarrhea, nausea and vomiting. Genitourinary: Negative for dysuria. Musculoskeletal: Positive for joint pain (R hip, chronic). Negative for myalgias. Skin: Negative for itching and rash. Neurological: Positive for dizziness (occasional lightheadedness, better with increased dos e prednisone). All other systems reviewed and are negative. Current Outpatient Medications Medication Sig acyclovir 800 mg oral tablet Take 1 tablet by mouth two times daily. ALPRAZolam 0.5 mg oral tablet Take 1 tablet by mouth as needed. Indications: anxiety (P atient taking differently: Take 0.5 mg by mouth three times daily as needed. Indications: a nxiety) cycloSPORINE (RESTASIS) 0.05 % ophthalmic (eye) dropperette Instill 1 drop into both ey es two times daily. (Patient not taking: Reported on 11/18/2018) ergocalciferol 50,000 unit oral capsule Take 1 capsule by mouth every seven days for 8 doses. fluorometholone 0.1 % ophthalmic (eye) drops,suspension Place in both eyes four times d aily. predniSONE 10 mg oral tablet Take 10 mg by mouth once daily. No current facility-administered medications for this visit. No Known Allergies Vitals: 11/18/18 1044 BP: 121/53 BP Location: Right upper arm Patient Position: Sitting Pulse: 68 Resp: 18 Temp: 37 C (98.6 F) TempSrc: Oral SpO2: 99% Weight: 75.6 kg (166 lb 9.6 oz) PainSc: 05 - Moderate to Severe PainLoc: Hip (Right) Physical Exam Constitutional: Thin CM in NAD HENT: Head: Normocephalic and atraumatic. Mouth/Throat: Oropharynx is clear and moist. No oropharyngeal exudate. Eyes: Conjunctivae are normal. Cardiovascular: Normal rate, regular rhythm, normal heart [...] reviewed. Lab Results Component Value Date WBC 7.20 11/18/2018 HB 13.2 11/18/2018 HCT 40.9 11/18/2018 PLT 261 11/18/2018 MCV 94.0 11/18/2018 RDW 44.4 11/18/2018 Lab Results Component Value Date BICARB 30 11/18/2018 TBILI 0.4 11/18/2018 CA 9.3 11/18/2018 CL 108 11/18/2018 CR 0.90 11/18/2018 GLU 98 11/18/2018 AP 63 11/18/2018 TP 7.5 11/18/2018 BUN 12 11/18/2018 ALB 4.0 11/18/2018 AST 23 11/18/2018 NA 143 11/18/2018 K 4.2 11/18/2018 ALT 29 11/18/2018 Assessment/Plan: 1. Hematology: Khurram Kelly is currently3 years, 3monthss/p tBuCy-condi tioned unrelated donor PBSC transplant for primary refractory AML, s/p 6 cycles of azacitidi ne for prevention of post-transplant relapse. CBC shows noevidence of disease by periphera l smear. -->continueCBC at least q6 months and prn --> no additional marrow studies indicated providing peripheral blood counts remain stable 2. 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 He initially responded but flared during taper. He also developed low-level nausea and abd discomfort concerning for GvHD, emp irically treated with oral non-absorbables with resolution. - He had tapered prednisone to 10 mg po daily when he developed a rash for which he was see n in the ED in [place] in late 01/21. Prednisone was increased back [...] due to insurance issues - restarted prednisone in 09/24 due to dizziness; initially started 5 mg po daily then incre ased to 10 mg po daily. This has resulted in improvement but not resolution of his symptoms. It is unlikely these symptoms are related to GvHD, concern for ENT process. - evaluated at [facility] on 10/21/18. Dx'd with ocular GvHD and prescribed PFAT, Restasis and fluo rometholone. He was unable to afford both Restasis and fluorometholone, therefore has been u sing only the steroid eye gtt. -TODAY: At present, pt reports ongoing ocular irritation. Feels FML and PFAT are helping his eyes but continues with c/o dry, irritated eyes. Denies other s/s active GvHD at this ti me. -->decrease prednisone to 9 mg po daily, then continue to decrease dose by 1 mg/day q2 we eks to a dose of 5 mg/day then hold --> continue to f/u with ophthalmology per their recs; next f/u scheduled today --> ENT consult to evaluate dizziness pending --> continue to monitor for s/s active GvHD every visit 3. Infectious Disease: Afebrile without localizing s/s infection. Continues prophylactic acyclovir alone.Post-transplant vaccines up-to-date save MMR and PPSV23; pt is ineligible for those vaccines while he remains on IST. -->continue acyclovir --> hold Shingrix until pt off all IST --> hold MMR and PPSV23 until pt off all IST x 1 year, then re-evaluate immune status 4. Fluid, Electrolyte and Nutrition: Appetite is slowly improving; making a conscious ef fort to eat more frequently and feels this has made a positive impact on his appetite. Weigh t remains stable over the last month. Very intermittent nausea that passes quickly without i ntervention. No V/D. His electrolytes are reviewed and are within acceptable limits. -->continue to eat small frequent meals throughout the day -->maintain adequate hydration 5. Musculoskeletal: Hx of [...] but he did not schedule. He is scheduled to reconnect with Dr. Jeffers this afternoon. -->f/u with Dr. Jeffers as scheduled 6. Psychosocial: Hx anxiety.This had been well controlled and pt had tapered xanax to 0 .5 mg po daily, continuedRSO and marijuana tinctures. Hx recurrent anxiety after d/c'ing p rednisone. Cortisol stim test WNL; no evidence of [...] manage his anxiety 7. Endocrine: VitD 25OH 15, HgbA1c 5.9 [10/21/18]. Prescribed HD vitamin D 50,000 units w ana x 8 weeks. --> continue HD vitD with repeat [id number] next visit --> repeat HgbA1c next visit with consideration for fasting labs if elevated 8. Follow up -->RTC to f/u with either Yari Garcia MD or me in 2 months, sooner prn [facility] [address] Mailcode: [place] [address] documented in this enc ounter Plan of [...] 2018 | Visit | Malignancy | [address] | | | | | | [address] | | | | | | [place], [place] | | | | | | [address] | | | | | | [phone] | | | | | | | | +--------+---------+ + + + documented as of this encounter Procedures + +--------+ + + + | Procedure Name | Priori | Date/Time | Associated Diagnosis | Comments | | | ty | | | | + +--------+ + + + | DIFFERENTIAL, ADD ON | Urgent | 11/18/2018 | Hx of allogeneic | Results for this | | | | 10:07 AM | stem cell transplant | procedure are in the | | | | PDT | (HCC) | results section. | + +--------+ + + + | DIFFERENTIAL, ADD ON | Urgent | 11/18/2018 | Hx of allogeneic | Results for this | | | | 10:07 AM | stem cell transplant | procedure are in the | | | | PDT | (HCC) | results section. | + +--------+ + + + documented in this encounter Results DIFFERENTIAL, ADD ON (11/18/2018 10:07 AM PDT) + + + + + + | Component | Value | Ref Range | Performed | Pathologist | | | | | At | Signature | + + + + + + | NEUTROPHIL | 45.5 (L) | 50.0 - 70.0 % | [facility] | | | % | | | LABORATORY | | | | | | SERVICES, | | | | | | CORE | | + + + + + + | LYMPHOCYTE | 41.8 | 18.0 - 42.0 % | [facility] [...] + + + | EOS % | 3.9 (H) | 1.0 - 3.0 % | [facility] | | | | | | LABORATORY | | | | | | SERVICES, | | | | | | CORE | | + + + + + + | BASO % | 0.5 | 0.0 - 2.0 % | [facility] | | | | | | LABORATORY | | | | | | SERVICES, | | | | | | CORE | | + + + + + + | IG% | 0.3Comment: Increased | 0.0 - 1.0 % | [facility] | | | | immature granulocytes | | LABORATORY | | | | (IG) define a left | | SERVICES, | | | | shift. Immature | | CORE | | | | granulocytes (IG) are an | | | | | | automated count of | | | | | | metamyelocytes, | | | | | | myelocytes and | | | | | | promyelocytes. Bands | | | | | | are not included in the | | | | | | IG count. Bands are | | | | | | included in the | | | | | | neutrophil count. 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
--- OUTSIDE RECORDS SUMMARY | ~2019-05-17 | XMS | Encounter Summary ---
Demographics + + + | Address | [address] | | | [place] [address] | + + + | Home Phone [...] Providers + +------+ + | Care Inspector Glass Or Mirror Name | Role | Phone | + [...] | | Hematologic | PA-C [address] [facility] | management (No | | | | Malignancies at [facility] | [address] | change to TAC dose) | | | | [address] | [place], [place] | | | | | [address]bi [place] Mailcode: | [address] | | | | | [facility] [place] | [phone] | | | | | [place], | | | | | | [place] [address] | | | | | | [phone] | | | +--------+ + + + [...] [place] | | | | | | [address] | | | | | | [phone] | | | | | | | | +--------+---------+ + + + documented as of this encounter Visit Diagnoses Not on filedocumented in this encounter"
--- OUTSIDE RECORDS SUMMARY | ~2019-05-17 | XMS | Encounter Summary ---
Demographics + + + | Address | [address] | | | [place] [address] | + + + | Home Phone [...] Team Providers + +------+ + | Care Developmental Therapist Name | Role | Phone | + [...] + + + + | 10/26/ | Telephone | Center for | Aspen Cummins FNP | Medication | | 2017 | | Hematologic | [address] | Adjustment (IST Tac) | | | | Malignancies at | [address] | | | | | [facility] | [place], [place] | | | | | [address] | [address] | | | | | [place] Mailcode: | [phone] | | | | | [facility] | | | | | | [facility] [place], | | | | | | [place] [address] | | | | | | [phone] | | | +--------+ + + + [...] Visit | Malignancy | [address] [facility] | | | | | | [address] | | | | | | [place] | | | | | | [address] | | | | | | [phone] | | | | | | | | +--------+---------+ + + + documented as of this encounter Visit Diagnoses Not on filedocumented in this encounter"
--- OUTSIDE RECORDS SUMMARY | ~2019-05-17 | XMS | Encounter Summary ---
Demographics + + + | Address | [address] | | | [place] [address] | + + + | Home Phone [...] Providers + +------+ + | Care Mail Caller Name | Role | Phone | + [...] | | | [address] | [place], [place] | | | | | [facility] Mailcode: | [address] | | | | | [facility] | [phone] | | | | | [place], | | | | | | [place] [address] | | | | | | [phone] | | | +--------+ + + + [...] | Visit | Malignancy | [address] [facility] | | | | | | [address] | | | | | | [place], [place] | | | | | | [address] | | | | | | [phone] | | | | | | | | +--------+---------+ + + + documented as of this encounter Visit Diagnoses Not on filedocumented in this encounter"
--- OUTSIDE RECORDS SUMMARY | ~2019-05-17 | XMS | Encounter Summary ---
Demographics + + + | Address | [address] | | | [place] [address] | + + + | Home Phone [...] Team Providers + +------+ + | Care Construction Manager Name | Role | Phone | + +------+ + | Pending Pcp Addition | PCP | Unavailable | + +------+ + Reason for Visit +--------+ + | Reason | Comments | +--------+ + | Nausea | | +--------+ + Office Visit - [...] | | | | | remission | [address] | [facility] | | | | | | Phone: | [facility] | | | | | Procedures | [phone] | [place], [place] | | | | | Post BMT | Fax: | [address] | | | | | Auth to | [phone] | Phone: | | | | | included | | [phone] | | | | | facility, | | Fax: | | | | | diagnostics, | | [phone] | | | | | office | | | | | | | visits and | | | | | | | surgery | | | +--------+---------+ + + + + Encounter Details +--------+---------+ + + + | Date | Type | Department | Care Team | Description | +--------+---------+ + + + | 08/09/ | Office | Center for | Aspen Cummins FNP | 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 | | | | Malignancies at | [address] | remission (HCC); S/P | | | | [facility] | [place], [place] | allogeneic bone | | | | [address] | [address] | marrow transplant | | | | Debi Burger Mailcode: | [phone] | ([facility]) | | | | [address] | | | | | | [facility] [place], | | | | | | [place] [address] | | | | | | [phone] | | | +--------+---------+ + + + [...] + + + | Blood Pressure | 101/64 | 08/09/2016 8:22 AM | | | | | PST | | + + + + + | Pulse | 98 | 08/09/2016 8:22 AM | | | | | PST | | + + + + + | Temperature | 36.9 C (98.4 F) | 08/09/2016 8:20 AM | | | | | PST | | + + + + + | Respiratory Rate | 20 | 08/09/2016 8:22 AM | | | | | PST | | + + + + + | Oxygen Saturation | 95% | 08/09/2016 8:20 AM | | | | | PST | | + + + + + | Inhaled Oxygen | - | - | | | Concentration | | | | + + + + + | Weight | 90.3 kg (199 lb 1.2 | 08/09/2016 8:20 AM | | | | oz) | PST | | + + + + + | Height | - | - | | + + + + + | Body Mass Index | 25.28 | 01/25/2016 8:24 AM | | | | | PDT | | + + + + + documented in this encounter Progress Notes Aspen Cummins, ORLY - 08/09/2016 7:45 AM PST 08/09/2016 [facility] Primary CHM MD: Yari Garcia MD Primary Oncologist: Yari Garcia MD Diagnosis: AMML, primary refractory Transplant Date: 08/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 CM with a [...] his L ankle. He was evaluated at [facility] ED on 06/[address] angiogram negative [...] acute myelomonocytic leukemia. He was referred to [facility] for further evaluation and man agement of his newly dx'd AML. Pt was admitted to [facility] on 05/26/15. Peripheral blood was [...] CD34, variable CD56, variable CD117, and dim BO870-nwevo mickey; promonocyte immunophenotype (70% by flow): CD11b, [...] durin g taper. He is currently day +348 s/p transplant, s/p 6 cycles of azacitidine and returns to clinic today for scheduled follow-up. Interim History: Khurram was most [facility] by me on 07/26/16. He reports increased nausea over the last week. Has been louie ing zofran 16 mg po BID with some relief. Typically vomits every morning with brushing his t eeth and intermittent post-tussive emesis in the afternoon. States he has not been eating m uch recently, typically not very hungry. However at times, he is able to eat quite a bit. L ast weekend he ate 4 slices of pizza at one sitting. Denies c/o abd pain, diarrhea or const ipation. Has spent most of the last week in bed, doesn't feel like moving. He reports ongoing hip pa in, maybe a bit better over the last week. His anxiety is well controlled with xanax BID to TID. He does not feel he is depressed at this time. Review of Systems Constitutional: Positive for malaise/fatigue. Negative for chills and fever. HENT: Negative for headaches, congestion and sore throat. Respiratory: Negative for cough and shortness of breath. Cardiovascular: Negative for chest pain and leg swelling. Gastrointestinal: Positive for nausea and vomiting. Negative for abdominal pain, blood in s tool, constipation, diarrhea and melena. Genitourinary: Negative for dysuria and hematuria. Musculoskeletal: Positive for joint pain (L hip). Negative for falls and myalgias. Skin: Negative for rash. Neurological: Positive for dizziness (occasional postural lightheadedness) and weakness (ge neralized). Negative for tingling and tremors. All other systems reviewed and are negative. Current Outpatient Prescriptions Medication Sig acyclovir 800 mg oral tablet Take 1 tablet by mouth two times daily. ALPRAZolam 0.5 mg oral tablet Take 1 tablet by mouth three times daily as needed. Indic ations: Anxiety amLODIPine 5 mg oral tablet Take one-half tablet by mouth once daily. omeprazole 20 mg oral capsule,delayed release(DR/EC) Take [...] for dresssing change per pt. Filed Vitals: 08/09/2016 8:20 AM 08/09/2016 8:21 AM 08/09/2016 8:22 AM Weight: 90.3 kg (199 lb 1.2 oz) BP: 114/73 111/73 101/64 Pulse: 80 78 98 Temp: 36.9 C (98.4 F) TempSrc: Oral Resp: 18 24 20 SpO2: 95% PainSc: 07 - Severe to Very Severe PainLoc: Leg (Left) BMI: 25.28 kg/(m^2) Physical Exam Constitutional: He is well-developed, well-nourished, and in no distress. Fatigued appearing HENT: Head: Normocephalic and atraumatic. Mouth/Throat: Oropharynx [...] He exhibits no distension. There is no hepatosple nomegaly. There is no tenderness. Musculoskeletal: He exhibits no edema. Neurological: He is alert. Skin: Skin is warm and dry. No rash noted. Psychiatric: Mood and affect normal. Vitals reviewed. Lab Results Component Value Date WBC 8.8 08/09/2016 HB 14.3 08/09/2016 HCT 41.8 08/09/2016 PLT 260 08/09/2016 MCV 94.1 08/09/2016 RDW 44.9 05/01/2016 Lab Results Component Value Date BICARB 28 08/09/2016 TBILI 0.4 08/09/2016 CA 9.8 08/09/2016 CL 92 (L) 08/09/2016 CR 1.0 08/09/2016 GLU 104 (H) 08/09/2016 AP 156 (H) 08/09/2016 TP 6.9 08/09/2016 BUN 9 08/09/2016 ALB 3.6 08/09/2016 AST 111 (H) 08/09/2016 NA 133 (L) 08/09/2016 K 3.7 08/09/2016 ALT 115 (H) 08/09/2016 Assessment/Plan: 1. Hematology: Khurram Kelly is currently day +348 s/p tBuCy-conditioned unrel ated donor PBSC transplant [...] studies in conjunction with his one year anniversary 08/27/16), sooner prn 2. 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 He initial ly responded but flared during taper. He also developed low-level nausea and abd discomfort concerning for GvHD, empirically treated with oral non-absorbables with resolution. He had t apered prednisone to 10 mg po daily when he developed a rash for which he was seen in the ED in [place] in late 01/21. Prednisone was increased back [...] with rapid resolution of his rash. He has tapered off budesonide, prednisone as of 07/13/16. Continues low dose tacrolimus. Chronic mild nausea, inc reased in the last week. Transaminitis also noted today. Taken together, suspicious for Gv HD. --> continue tacrolimus 0.5 mg bid at this time --> restart beclomethasone 1 mg po QID --> if no improvement in nausea over the next 5 to 7 days, refer for EGD to r/o GvHD --> due to AVN, would prefer not to restart steroids unless pt has bx proven GvHD 3. Fluid, Electrolyte and Nutrition: Poor appetite over the last week with increased nausea , intermittent gagging and vomiting [brushing teeth is a trigger]. Drinking 1-2 L po fluids daily. Weight down 14# in the last month. TP/alb remain WNL. His electrolytes are reviewed and are within acceptable limits. --> encouraged pt to eat a snack every 2 hours --> maintain hydration with goal of 2L calorie containing fluids daily 4. Musculoskeletal: Hx of intermittent L hip pain. Plain films on 03/30/16 showed minimal d egenerative changes of both hips. Pain had resolved, however returned within the last few we eks, much more intense. 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 MRI 07/25/16 showed bilateral femoral head osteonecrosis with subchondral fracture and collapse of weightbearing L femoral head with suspected early cartilage disease. --> Ortho consult scheduled with Lobo Jeffers MD on 08/11/16 5. Follow up --> pt's to contact clinic on 08/14/16 or sooner with nausea update --> RTC to f/u with me on 08/16/16, sooner prn [facility] [address] Mailcode: [id number] [id number] documented in this enc ounter Plan of [...] 2018 | Visit | Malignancy | [address] [facility] | | | | | | [address] | | | | | | [place], [place] | | | | | | [address] | | | | | | [phone] | | | | | | | [...]
--- OUTSIDE RECORDS SUMMARY | ~2019-05-17 | XMS | Encounter Summary ---
Demographics + + + | Address | [address] | | | [place] [address] | + + + | Home Phone [...] Team Providers + +------+ + | Care Scraper Loader Operator Name | Role | Phone | + +------+ + | Zayda Hinton | PCP | | + +------+ + Encounter Details +--------+ + + + + | Date | Type | Department | Care Team | Description | +--------+ + + + + | 08/08/ | Pharmacy | Specialty Pharmacy | | | | 2015 | Visit | Services [address] | | | | | | [address] | | | | | | [place], [place] | | | | | | [address] | | | | | | [phone] | | | +--------+ + + + [...] [place] | | | | | | [address] | | | | | | [phone] | | | | | | | | +--------+---------+ + + + documented as of this encounter Visit Diagnoses Not on filedocumented in this encounter"
--- OUTSIDE RECORDS SUMMARY | ~2019-05-17 | XMS | Encounter Summary ---
Demographics + + + | Address | [address] | | | [place] [address] | + + + | Home Phone [...] Providers + +------+ + | Care Mechanical Designer Name | Role | Phone | + +------+ + | Zayda Hinton | PCP | | + +------+ + Encounter Details +--------+ + + + + | Date | Type | Department | Care Team | Description | +--------+ + + + + | 08/21/ | Pharmacy | Specialty Pharmacy | | | | 2016 | Visit | Services [address] | | | | | [address] | | | | | | [place], [place] | | | | | | [address] | | | | | | [phone] | | | +--------+ + + + [...] [address] | | | | | | [place], [place] | | | | | | [address] | | | | | | [phone] | | | | | | | | +--------+---------+ + + + documented as of this encounter Visit Diagnoses Not on filedocumented in this encounter"
--- OUTSIDE RECORDS SUMMARY | ~2019-05-17 | XMS | Encounter Summary ---
Demographics + + + | Address | [address] | | | [place] [address] | + + + | Home Phone [...] Team Providers + +------+ + | Care Pile Driver Name | Role | Phone | + +------+ + | Zayda Hinton | PCP | | + +------+ + Encounter Details +--------+ + + + + | Date | Type | Department | Care Team | Description | +--------+ + + + + | 09/01/ | Pharmacy | Specialty Pharmacy | | | | 2016 | Visit | Services [address] | | | | | | [address] | | | | | | [place], [place] | | | | | | [address] | | | | | | [phone] | | | +--------+ + + + [...] [address] | | | | | | [place], [place] | | | | | | [address] | | | | | | [phone] | | | | | | | | +--------+---------+ + + + documented as of this encounter Visit Diagnoses Not on filedocumented in this encounter"
--- OUTSIDE RECORDS SUMMARY | ~2019-05-17 | XMS | Encounter Summary ---
Demographics + + + | Address | [address] | | | [place] [address] | + + + | Home Phone [...] Providers + +------+ + | Care Web Design Specialist Name | Role | Phone | [...] [address] | | | | | | [place], [place] | | | | | | [address] | | | | | | [phone] | | | | | | | | +--------+---------+ + + + documented as of this encounter Visit Diagnoses Not on filedocumented in this encounter"
--- OUTSIDE RECORDS SUMMARY | ~2019-05-17 | XMS | Encounter Summary ---
Demographics + + + | Address | [address] | | | [place] [address] | + + + | Home Phone [...] Providers + +------+ + | Care Dairy Cattle Farm Worker Name | Role | Phone | + +------+ + | Pending Pcp Addition | PCP | Unavailable | + +------+ + Encounter Details +--------+ + + + + | Date | Type | Department | Care Team | Description | +--------+ + + + + | 08/10/ | Hospital | Cardiac | Sj, Car Ecg Tech | | | 2016 | Encounter | Non-Invasive Testing | [address] | | | | | at [facility] | [facility] | | | | | [address] | [place] [address] | | | | | [facility] | | | | | | Mailcode: [id number] | | | | | | [address] | | | | | | [facility] | | | | | | [place] [address] | | | | | | [phone] | | | +--------+ + + + [...] [address] | | | | | | [place], [place] | | | | | | [address] | | | | | | [phone] | | | | | | | [...] | e | 9:48 AM | leukemia) ([facility]) | procedure are in the | | [...] DEPT OF | [address] | [place], [place] | | | CARDIOLOGY | [address] | [address] | | + + + + + documented in this encounter Visit Diagnoses Not on filedocumented in this encounter"
--- OUTSIDE RECORDS SUMMARY | ~2019-05-17 | XMS | Encounter Summary ---
Demographics + + + | Address | [address] | | | [place] [address] | + + + | Home Phone [...] Team Providers + +------+ + | Care Chemistry Technical Officer Name | Role | Phone | [...] Description | +--------+--------+ + + + | 03/30/ | Refill | Center for | Yari Garcia MD | Refill Request | | 2016 | | Hematologic | [address] | | | | | Malignancies at [facility] | [address] | | | | | [address] | [place], [place] | | | | | [address] Mailcode: | [phone] | | | | | [address] | [phone] | | | | | [place], | | | | | | [place] [address] | | | | | | [phone] | | | +--------+--------+ + + + [...] 2019 | Visit | Malignancy | [address] [facility] | | | | | | [address] | | | | | | [place] | | | | | | [address] | | | | | | [phone] | | | | | | | | +--------+---------+ + + + documented as of this encounter Visit Diagnoses Not on filedocumented in this encounter"
--- OUTSIDE RECORDS SUMMARY | ~2019-05-17 | XMS | Encounter Summary ---
Demographics + + + | Address | [address] | | | [place] [address] | + + + | Home Phone [...] Team Providers + +------+ + | Care Drafter Electronic Name | Role | Phone | + +------+ + | Pending Pcp Addition | PCP | Unavailable | + +------+ + Reason for Visit + + + | Reason | Comments | + + + | Lab Draw | Peripheral | + + + | Follow-up visit [...] | | | | | | [place], | | | | | | | [place] | | | | | | | [address] | | | | | | | Phone: | | | | | | | [phone] | | | | | | | Fax: | | | | | | | [phone] | +--------+--------+ + + + + Encounter Details +--------+ + + + + | Date | Type | Department | Care Team | Description | +--------+ + + + + | 04/12/ | Clinical | Center for | | Lab Draw | | 2016 | Support | Hematologic | | (Peripheral); | | | Staff | Malignancies at [facility] | | Follow-up visit | | | | [address] | | (ORLY Yanes) | | | | [address] Mailcode: | | | | | | [address] | | | | | | [place], | | | | | | [place] [address] | | | | | | [phone] | | | +--------+ + + + [...] as of this encounter Progress Notes Samantha Blackwood RN - 04/12/2016 12:35 PM PDTINFUSION/TRANSFUSION NURSING NOTE Provider: Dr. Garcia Narrative: Patient ambulatory to infusion room. Khurram Kelly is a 25 yo male with a h/o primar y refractory AML. he is s/p tBuCy-conditioned unrelated donor PBSC transplant (Day 0 = 08/26) and s/p 6 cycles of maintenance Vidaza. He is in clinic today for lab work, supportiv e care as needed and an OV with ORLY Yanes. Nursing Assessment: Fever: no; Diarrhea: no; SOB / Cough: no; Nausea / Vomiting: yes - several episodes of naus ea that resolved quickly and did not require antiemetics; Anemia / Fatigue: yes - Patient re ports some increased fatigue this past week; Constipation: no; Edema: no; S/S Bleeding: no; Mucositis: no; Urinary: no; Neuropathy: no; Rash: no; Patient reports that overall his appet ite has been good and that he is eating normal meals. He reports that he is drinking 2L of f luid a day without difficulty. Patient reports that he is sleeping well and has no complaint s or concerns at this time. Patient will be seen in OV today by ORLY Yanes. Vascular Access: Left AC accessed with a 23 gauge butterfly needle. Labs drawn and sent. Tolerated procedu re well. Site dressed with sterile gauze and Coban. Treatment Provided: Lab results reviewed and no blood product or electrolyte replacement required. Patient d/c d ambulatory with his in stable condition to his OV. Kim Blackwood RN documented in this encoun [...] | | | 2018 | Visit | [facility] | [address] [place] [address] | | | | | | [address] | | | | | | [place], [place] | | | | | | [address] | | | | | | [phone] | | | | | | | | +--------+---------+ + + + + + +--------+ + + | Name | Type | Priori | Associated Diagnoses | Order Schedule | | | | ty | | | + + +--------+ + + | BMP + MAG, POC CHM | Lab - Point | Routin | S/P allogeneic | Ordered: 04/12/2016 | | | of Care | e | bone marrow | | | | Interface | | transplant (HCC) | | + + +--------+ + + documented as of this encounter Procedures + +--------+ + + + | Procedure Name | Priori | Date/Time | Associated Diagnosis | Comments | | | ty | | | | + +--------+ + + + | CBC+DIFF,POC | Routin | 04/12/2016 | S/P allogeneic | Results for this | | | e | 12:59 PM | bone marrow | procedure are in the | | | | PDT | transplant ([facility]) | results section. | + +--------+ + + + | BASIC METABOLIC SET | Urgent | 04/12/2016 | S/P allogeneic | Results for this | | (NA, K, CL, TCO2, | | 12:57 PM | bone marrow | procedure are in the | | BUN, CR, GLU, CA) | | PDT | transplant (HCC) | results section. | + +--------+ + + + | MAGNESIUM, PLASMA | Urgent | 04/12/2016 | S/P allogeneic | Results for this | | | | 12:57 PM | bone marrow | procedure are in the | | | | PDT | transplant ([facility]) | results section. | + +--------+ + + + | TREATMENT PARAMETERS | Routin | 04/12/2016 | S/P allogeneic | | | #2 - [place] | e | 12:34 PM | bone marrow | | | | | PDT | transplant (HCC) | | + +--------+ + + + | TREATMENT PARAMETERS | Routin | 04/12/2016 | S/P allogeneic | | | #2 - [place] | e | 12:34 PM | bone marrow | | | | | PDT | transplant (HCC) | | + +--------+ + + + | TREATMENT PARAMETERS | Routin | 04/12/2016 | S/P allogeneic | | | #2 - [place] | e | 12:34 PM | bone marrow | | | | | PDT | transplant (HCC) | | + +--------+ + + + | TREATMENT PARAMETERS | Routin | 04/12/2016 | S/P allogeneic | | | #2 - [place] | e | 12:34 PM | bone marrow | | | | | PDT | transplant (HCC) | | + +--------+ + + + | TREATMENT PARAMETERS | Routin | 04/12/2016 | S/P allogeneic | | | #2 - [place] | e | 12:34 PM | bone marrow | | | | | PDT | transplant (HCC) | | + +--------+ + + + | NURSING | Routin | 04/12/2016 | S/P allogeneic | | | COMMUNICATION #3 - | e | 12:34 PM | bone marrow | | | [place] | | PDT | transplant (HCC) | | + +--------+ + + + | NURSING | Routin | 04/12/2016 | S/P allogeneic | | | COMMUNICATION #2 - | e | 12:34 PM | bone marrow | | | [place] | | PDT | transplant (HCC) | | + +--------+ + + + | NURSING | Routin | 04/12/2016 | S/P allogeneic | | | COMMUNICATION #1 - | e | 12:34 PM | bone marrow | | | [place] | | PDT | transplant ([facility]) | | + +--------+ + + + | TREATMENT PARAMETERS | Routin | 04/12/2016 | S/P allogeneic | | | #1 - [place] | e | 12:34 PM | bone marrow | | | | | PDT | transplant ([facility]) | | + +--------+ + + + | TREATMENT PARAMETERS | Routin | 04/12/2016 | S/P allogeneic | | | #1 - [place] | e | 12:34 PM | bone marrow | | | | | PDT | transplant ([facility]) | | + +--------+ + + + | CMV PCR | Routin | 04/12/2016 | S/P allogeneic | Results for this | | QUANTITATION, PLASMA | e | 12:34 PM | bone marrow | procedure are in the | | | | PDT | transplant ([facility]) | results section. | + +--------+ + + + | LIVER SET | Urgent | 04/12/2016 | S/P allogeneic | Results for this | | (AST,ALT,BILI | | 12:34 PM | bone marrow | procedure are in the | | TOTAL,BILI | | PDT | transplant (HCC) | results section. | | DIRECT,ALK | | | | | | PHOS,ALB,PROT TOTAL) | | | | | + +--------+ + + + documented in this encounter Results CBC+DIFF,POC (04/12/2016 12:59 PM PDT) + + + + + [...] + + + | RBC POC | 4.24 (L) | 4.50 - 6.00 | [facility] - | | | | | 10*6/uL | [place] | | | | | | [address] | | | | | | OF CARE | | | | | | TESTS | | + + + + + + | HGB POC | 14.5 | 13.5 - 17.5 | [facility] - | | | | | g/dL | [facility] | | | | | | [facility] | | | | | | OF CARE | | | | | | TESTS | | + + + + + + | HCT POC | 42.7 | 41.0 - 53.0 % | [facility] - | | | | | | [facility] | | | | | | [facility] | | | | | | OF CARE | | | | | | TESTS | | + + + + + + | MCV POC | 100.7 (H) | 80.0 - 96.0 fL | [facility] - | | | | | | [facility] | | | | | | [facility] | | | | | | OF CARE | | | | | | TESTS | | + + + + + + | MCH POC | 34.2 (H) | 28.5 - 32.3 pg | [...] + + | RDW SD, POC | 47.1 (H) | 35.1 - 46.3 fL | [...] + + + | LYMPH% POC | 19.4 | 18 - 42 % | [facility] [...] + + | EOS %, POC | 3.0 | 1.0 - 3.0 % | [facility] [...] + + + + | NEUTROPHIL# | 4.9 | 1.8 - 7.7 | [facility] - [...] [place] | [address] | [place], [place] | | | RUTHIE CARTER OF CARE | [address] | [address] | | | TESTS | | | | + + + + + MAGNESIUM, PLASMA (04/12/2016 12:57 PM PDT) + +-------+ + + + [...] [facility] | [address] | [place] [address] | | | SERVICES, CORE | [address] | | | + + + + + BASIC METABOLIC SET (NA, K, CL, TCO2, BUN, CR, GLU, CA) (04/12/2016 12:57 PM PDT) + +---------+ + + + | Component | Value | Ref Range | Performed | Pathologist | | | | | At | Signature | + +---------+ + + + | GLUCOSE, | 91 | 60 - 99 mg/dL | [facility] [...] +---------+ + + + | CREATININE | 1.04 | 0.70 - 1.30 | [facility] | | | PLASMA | | mg/dL | LABORATORY | | | (LAB) | | | SERVICES, | | | | | | CORE | | + +---------+ + + + | EGFR | >60 | >60 mL/min | [facility] | | | - | | | LABORATORY | | | [place] | | | SERVICES, | | | [...] +---------+ + + + | CALCIUM, | 9.2 | 8.6 - 10.2 | [facility] | [...] the MDRD equation recommended by the | [facility] | | National Kidney Disease Education Program. Estimated GFR | LABORATORY | | Interpretive Information: <60 mL/min/1.73 sq m | KOLE, INDRA | | Chronic Kidney Disease <15 mL/min/1.73 [...] | [facility] | [address] | [place] [address] | | | SERVICES, CORE | [address] | | | + + + + + LIVER SET (AST,ALT,BILI TOTAL,BILI DIRECT,ALK PHOS,ALB,PROT TOTAL) (04/12/2016 12:34 PM PDT ) + +---------+ + + [...] + + + | ALT (SGPT) | 89 (H) | <=60 U/L | [facility] | [...] | + + + + + | [facility] | [address] | [place] [address] | | | SERVICES, CORE | [address] | | | + + + + + CMV PCR QUANTITATION, PLASMA (04/12/2016 12:34 PM PDT) + + + + + [...] characteristics determined by the [facility] | | | Molecular Diagnostic Center. It has not been cleared or approved by | | | the Food and Drug Administration. FDA approval is not required for | | | clinical use of this test, and therefore validation was done as | | | required under the requirements of the Clinical Laboratory Improvement | | | Act of 1988. The [facility] [employer] [facility] | | | Diagnostic Center is a fully licensed and/or accredited clinical | | | laboratory under CLIA, CAP, and the [facility]. | | + + + + + + + + | Performing | Address | City/State/[facility] | Phone Number | | Organization | | | | + + + + + | [facility] | [address] | [place] [address] | | | DIAGNOSTIC | [address] [...]
--- OUTSIDE RECORDS SUMMARY | ~2019-05-17 | XMS | Encounter Summary ---
Demographics + + + | Address | [address] | | | [place] [address] | + + + | Home Phone [...] Team Providers + +------+ + | Care Recovery Agent Name | Role | Phone | [...] | myelomonocyt | [address] | [address] | | | | | ic leukemia, | [address] | [address] | | | | | not having | [address] | Mailcode: | | | | | achieved | [place], [place] | [id number] | | | | | remission | [address] | [facility] | | | | | | Phone: | [facility] | | | | | Procedures | [phone] | [place], [place] | | | | | Post BMT | Fax: | [address] | | | | | Auth to | [phone] | Phone: | | | | | included | | [phone] | | | | | facility, | | Fax: | | | | | diagnostics, | | [phone] | | | | | office | | | | | | | visits and | | | | | | | surgery | | | +--------+---------+ + + + + Encounter Details +--------+---------+ + + + | Date | Type | Department | Care Team | Description | +--------+---------+ + + + | 06/18/ | Office | Center for | Aspen Cummins FNP | S/P allogeneic bone | | 2017 | Visit | Hematologic | [address] [facility] | marrow transplant | | | | Malignancies at | [facility] | (HCC) (Primary Dx) | | | | [facility] | [place], [place] | | | | | [address] [facility] | [address] | | | | | [facility] Mailcode: | [phone] | | | | | [id number] | | | | | | Pavilion [place], | | | | | | [place] [address] | | | | | | [phone] | | | +--------+---------+ + + + [...] + + + | Blood Pressure | 128/70 | 06/18/2017 1:13 PM | | | | | PST | | + + + + + | Pulse | 65 | 06/18/2017 1:13 PM | | | | | PST | | + + + + + | Temperature | 36.9 C (98.4 F) | 06/18/2017 1:13 PM | | | | | PST | | + + + + + | Respiratory Rate | 16 | 06/18/2017 1:13 PM | | | | | PST | | + + + + + | Oxygen Saturation | 99% | 06/18/2017 1:13 PM | | | | | PST | | + + + + + | Inhaled Oxygen | - | - | | | Concentration | | | | + + + + + | Weight | 72.8 kg (160 lb 7.9 | 06/18/2017 1:13 PM | | | | oz) | PST | | + + + + + | Height | - | - | | + + + + + | Body Mass Index | 20.06 | 04/02/2017 1:46 PM | | | | | PDT | | + + + + + documented in this encounter Patient Instructions Patient Instructions Aspen Cummins FNP - 06/18/2017 2:15 PM PST1. Continue to taper your tacrolimus as follows: - on 06/22/17, decrease to 0.5 mg by mouth every morning, 0.5 mg by mouth every other even ing - on 07/06/17, decrease to 0.5 mg by mouth once daily - on 07/20/17, decrease to 0.5 mg by mouth every other day - on 08/03/17, stop tacrolimus 2. Continue to taper your xanax as able. You're doing a great job 3. No more bone marrow biopsies!! 4. Return to clinic to follow up with me in 1 month. We'll have you see Dr. Garcia for your anniversary visit in August documented in this encounter Progress Notes Jhon Castillo MA - 06/18/2017 2:15 PM PST ActHIB from pharmacy injected IM [...] injection section for details. Jhon Castillo MA l Aspen velez FNP - 06/18/2017 2:15 PM PSTFormatting of this note might be different from jaycee farrell. 06/18/2017 [facility] MD: Yari Garcia MD Primary Oncologist: Yari Garcia MD Diagnosis: AMML, primary refractory Transplant Date: 08/27/15 Donor: MMURD (DPB1 permissive antigen mismatch, male, [id number]) Identifying Data: Khurram Kelly is a 26 [...] his L ankle. He was evaluated at [facility] ED on 06/[address] angiogram [...] acute myelomonocytic leukemia. He was referred to [facility] for further evaluation and man agement of his newly dx'd AML. Pt was admitted to [facility] on 05/26/15. Peripheral blood was [...] CD34, variable CD56, variable CD117, and dim JT809-yvada mickey; promonocyte immunophenotype (70% by flow): CD11b, [...] hip arthroplasty. He is currently 1 year, 10 monthss/p transplant, s/p 6 cyclesof azacitidine and returns to clinic today for scheduled follow-up. Interim History: Clary most recently [facility] by andra 05/24/17. Shortly after that visit, he got the flu. Had GI symptoms for several days, resolved without intervention. He then went hunting for a week with minima l po intake [place] in the [place]. He knows he's lost weight, says this happens every year when he goes hunting. He did not get an elk, but his brother did. 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 He's happy about being out o f the house and contributing, earning a living rather than receiving disability. He did guzman marco catch a cold last week from one of his students. Quick to resolve. Feels he's eating much better now, adequate po fluid intake. No c/o N/V/D. Got glasses ~2 weeks ago. Vision is much better. He's surprised actually at how bad his vision was before g lasses. Anxiety is well controlled, now taking ~0.5 mg po BID rather than 1 mg po TID. States his w rojas is managing his medications, continues to cut back overall. Extended family life is marco y stressful but he feels he's managing this stress well. Review of Systems Constitutional: Negative for chills, fever and malaise/fatigue. HENT: Negative for headaches, congestion and sore throat. Eyes: Negative for blurred vision and photophobia. Respiratory: Negative for cough and shortness of breath. Cardiovascular: Negative for chest pain and leg swelling. Gastrointestinal: Negative for abdominal pain, diarrhea, nausea and vomiting. Genitourinary: Negative for dysuria. Musculoskeletal: Positive for joint pain (occasional R hip pain but mostly asymptomatic). N egative for myalgias. Skin: Negative for rash. Neurological: Negative [...] capsule Take 0.5 mg by mouth every morning and 0.5 mg by mouth e very evening. Indications: GVHD tacrolimus 1 mg oral capsule Take 0.5 mg by mouth every morning and 0.5 mg by mouth ne ry evening. Indications: GVHD No current facility-administered medications for this visit. Facility-Administered Medications Ordered in Other Visits Medication Dose Route Frequency Provider Last Rate Last Dose haemophilus b polysac-tetanus toxoid (ActHIB) injection 0.5 mL 0.5 mL intramuscular ON CE Asepn Cummins, [place]LY hepatitis A-hepatitis B vaccine (TWINRIX) injection 1 mL 1 mL intramuscular ONCE Aspen Cummins, PHARMACOLOGY ASSOCIATE human papillomavirus vaccine (9-valent) (GARDASIL 9) injection 0.5 mL 0.5 mL intramusc ular ONCE Aspen Cummins, PHARMACOLOGY ASSOCIATE poliovirus vaccine (inactivated) (IPOL) injection 0.5 mL 0.5 mL subcutaneous ONCE Ruth Cummins, PHARMACOLOGY ASSOCIATE tetanus-diphtheria toxoids (adult) (TENIVAC,DECAVAC,Td) injection 0.5 mL 0.5 mL intram uscular ONCE Aspen Cummins, PHARMACOLOGY ASSOCIATE No Known Allergies Filed Vitals: 06/18/2017 1:13 PM Weight: 72.8 kg (160 lb 7.9 oz) BP: 128/70 Pulse: 65 Temp: 36.9 C (98.4 F) TempSrc: Oral Resp: 16 SpO2: 99% PainSc: 0 - Zero BMI: 20.06 kg/(m^2) Physical Exam Constitutional: He is well-developed, [...] tenderness . Musculoskeletal: He exhibits no edema. Skin: Skin is warm and dry. No rash noted. Psychiatric: Mood and affect normal. Vitals reviewed. Lab Results Component Value Date WBC 9.3 06/18/2017 HB 14.6 06/18/2017 HCT 43.1 06/18/2017 PLT 247 06/18/2017 MCV 94.7 06/18/2017 RDW 41.9 04/19/2017 Lab Results Component Value Date BICARB 29 06/18/2017 TBILI 0.4 06/18/2017 CA 9.8 06/18/2017 CL 102 06/18/2017 CR 0.7 06/18/2017 GLU 105 (H) 06/18/2017 AP 100 06/18/2017 TP 7.6 06/18/2017 BUN 11 06/18/2017 ALB 3.8 06/18/2017 AST 29 06/18/2017 NA 143 06/18/2017 K 4.3 06/18/2017 ALT 52 06/18/2017 Assessment/Plan: 1. 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 His most recent marrow studies completed 08/31/16 showed a nor mocellular marrow (30%) with trilineage hematopoiesis, marrow eosinophilia (~15%) and <2% myeloid blasts. Karyotype 46,XY[20]. VNTR showed no detectable host cells. 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 His CBC remains WNL ; he has no evidence of disease by peripheral smear. --> continue CBC q4 weeks and prn --> no additional marrow studies indicated providing peripheral counts remain stable 2. 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 He initially responded but flared during taper. He also developed low-level nausea and abd discomfort concerning for GvHD, emp irically treated with oral non-absorbables with resolution. - He had tapered prednisone to 10 mg po daily when he developed a rash for which he was see n in the ED in [place] in late 01/21. Prednisone was increased back [...] fluconazole with resolution of upper GI symptoms -TODAY: No s/s active GvHD.Continues MMF ER, tacrolimus (tapering), prednisone 10 mg po daily. --> continue tacrolimus taper as follows - on 06/22/17, decrease to 0.5 mg [...] immune activation. CD4 count 420. Continues post-transplant vaccines; received annual inactivated influenza vaccine on 05/24/17. -->continue acyclovir until off all IST -->additionalvaccines today including: IPV #3, Hib #3, Td #2, HepB #3, Prevnar 13 #2 --> hepBsAb next visit --> repeat immune reconstitution panel next visit 4. Fluid, Electrolyte and Nutrition: Over the course of the last month, pt has lost 12#. He states this is related to having the flu with GI symptoms, and limited po intake while hunting. Appetite back to baseline, feels he's eating better overall.His electrolytes are reviewed and are within acceptable limits. --> continue a well balanced diet --> encouraged pt to have snack handy in his car, at work, etc. [...] Dr. Jeffers on 04/02/17; [facility] causing his pain. Pain resolved without additional inte rvention, now asymptomatic. No longer requiring analgesics. -->continue to f/u with Dr. Jeffers per his recommendations 6. Psychosocial: Hx anxiety, well controlled with current xanax dosing. Back in [place] on now, different set of life stressors but feels he's handling them well. His is now d osing his xanax, tapered to 0.5 mg po BID. --> continue to taper xanax as tolerated 7. Follow up -->RTC to f/u with me in 1 month with anniversary labs, sooner prn --> additionally, will schedule pt to f/u with Yari Garcia MD in 08/26 in conjunction with his 2 year anniversary. [facility] AT [address] Mailcode: [place] [address] documented in this enc ounter [...] | | | 2018 | Visit | [facility] | [address] [place] [address] | | | | | | [facility] | | | | | | [place], [place] | | | | | | [address] | | | | | | [phone] | | | | | | | | +--------+---------+ + + + documented as of this encounter Results CMP, POC (BMP+LFT) (07/19/2017 [...] + + + | [facility] | [address] | [place], [place] | | | [facility] | [address] | [address] | | | TESTS | | | [...] + | [facility] - | [address] | [place] [address] | | | [place] | | | [...] | + + + + + | [facility] | [address] | [place] [address] | | | SERVICES, CORE | PARK [...] + + + + + | [facility] | [address] | [place] [address] | | | INDRA SHARIF | WALLY [...] | + + + + + | [facility] | [address] | [place] [address] | | | KOLE, INDRA | PARK [...] + + + + + | [facility] | [address] | [place] [address] | | | SERVICES, INDRA | WALLY [...] + + + + + | [facility] | [address] | [place] [address] | | | SERVICES, CORE | WALLY [...] | haemophilus b polysac-tetanus | Given | 06/18/20 | 0.5 mL | | Left | | toxoid (ActHIB) injection 0.5 mL | | 17 3:48 | | | Deltoid | | 0.5 mL, intramuscular, ONCE, 1 | | PM PST | | | | | dose, 06/18/17 at 1315 | | | | | | + +--------+ +--------+------+---------+ +---+---+ | | | +---+---+ + +-------+ +------+---+---------+ | hepatitis A-hepatitis B vaccine | Given | 06/18/20 | 1 mL | | Left | | (TWINRIX) injection 1 mL 1 mL, | | 17 3:46 | | | Deltoid | | intramuscular, ONCE, 1 dose, Mon | | PM PST | | | | | 06/18/17 at 1315 | | | | | | + +-------+ +------+---+---------+ +---+---+ | | | +---+---+ + +-------+ +--------+---+---------+ | human papillomavirus vaccine | Given | 06/18/20 | 0.5 mL | | Right | | (9-valent) (GARDASIL 9) injection | | 17 3:45 | | | Deltoid | | 0.5 mL 0.5 mL, intramuscular, | | PM PST | | | | | ONCE, 1 dose, Sun06/18/17 at | | | | | | | 1315 | | | | | | + +-------+ +--------+---+---------+ +---+---+ | | | +---+---+ + +-------+ +--------+---+ + | poliovirus vaccine | Given | 06/18/20 | 0.5 mL | | Left Arm | | (inactivated) (IPOL) injection | | 17 3:46 | | | | | 0.5 mL 0.5 mL, subcutaneous, | | PM PST | | | | | ONCE, 1 dose, Sun06/18/17 at | | | | | | | 1315 | | | | | | + +-------+ +--------+---+ + +---+---+ | | | +---+---+ + +-------+ +--------+---+---------+ | tetanus-diphtheria toxoids | Given | 06/18/20 | 0.5 mL | | Right | | (adult) (TENIVAC,DECAVAC,Td) | | 17 3:47 | | | Deltoid | | injection 0.5 mL 0.5 mL, | | PM PST | | | | | intramuscular, ONCE, 1 dose, Mon | | | | | | | 06/18/17 at 1315 | | | | | | + +-------+ +--------+---+---------+ +---+---+ | | | +---+---+ documented in this encounter"
--- OUTSIDE RECORDS SUMMARY | ~2019-05-17 | XMS | Encounter Summary ---
Demographics + + + | Address | [address] | | | [place] [address] | + + + | Home Phone [...] Team Providers + +------+ + | Care Fence Post Driver Name | Role | Phone | [...] | | | | Christian Barry | [place], [place] | | | | | [address] | [address] | | | | | [address]bi [address] Mailcode: | [phone] | | | | | [facility] | | | | | | [place], | | | | | | [place] [address] | | | | | | [phone] | | | +--------+ + + + [...] | 2019 | Visit | Malignancy | [address] | | | | | [address] | | | | | | [place], [place] | | | | | | [address] | | | | | | [phone] | | | | | | | | +--------+---------+ + + + documented as of this encounter Visit Diagnoses Not on filedocumented in this encounter"
--- OUTSIDE RECORDS SUMMARY | ~2019-05-17 | XMS | Encounter Summary ---
Demographics + + + | Address | [address] | | | [place] [address] | + + + | Home Phone [...] Team Providers + +------+ + | Care Insulation Manager Name | Role | Phone | [...] | | | Debi Burger Mailcode: | [place], [place] | | | | | [address] | [address] | | | | | [address] | [phone] | | | | | [place], [place] | | | | | | [address] | | | | | | [phone] | | | +--------+ + + + [...] Rd | | | | | | [place], [place] | | | | | | [address] | | | | | | [phone] | | | | | | | | +--------+---------+ + + + documented as of this encounter Visit Diagnoses Not on filedocumented in this encounter"
--- OUTSIDE RECORDS SUMMARY | ~2019-05-17 | XMS | Encounter Summary ---
Demographics + + + | Address | [address] | | | [place] [address] | + + + | Home Phone [...] Team Providers + +------+ + | Care Duplicate Maker Name | Role | Phone | + +------+ + | Zayda Hinton | PCP | | + +------+ + Reason for Visit + + + | Reason | Comments | + + + | Pre-op evaluation | | + + + Encounter Details +--------+---------+ + + + | Date | Type | Department | Care Team | Description | +--------+---------+ + + + | 06/03/ | Office | Orthopaedics at | Zeyad, Lobo B, | Avascular necrosis | | 2019 | Visit | [facility] [address] | [address] | of bone of left hip | | | | Ave Mailcode: [id number] | [address] | ([facility]) (Primary Dx) | | | | [place] [facility] | [place], [place] | | | | | and Healing, | [address] | | | | | [facility] | [phone] | | | | | Floor [place], [place] | | | | | | [address] | | | | | | [phone] | | | +--------+---------+ + + + [...] | 73.9 kg (163 lb) | 12/09/2018 3:26 PM | | | | | PDT | | + + + + + | Height | 186.7 cm (6' 1.5") | 12/09/2018 3:26 PM | | | | | PDT | | + + + + + | Body Mass Index | 21.21 | 12/09/2018 3:26 PM | | | | | PDT | | + + + + + documented in this encounter Progress Notes Lobo Jeffers MD - 12/09/2018 3:20 PM PDTDiagnosis: AML s/p bone marrow transplant AVN bilateral hips Left hip pain Procedure: Left total hip arthroplasty 09/07/16 History: Khurram returns to clinic today for preoperative visit. He reports having increasing pain in his right hip. He has noticed that his hip rotation has significantly been reduced seco ndary to pain and limited motion. He is ambulating with a cane at all times now secondary t o pain. He reports that his left hip is still doing quite well and he does not have any com plaints. Exam: Chest is clear to auscultation bilaterally. Heart is regular rate and rhythm. The right hip is a normal overall profile. There are no obvious palpable masses. He does not have any tenderness over the greater trochanter. He has almost no internal or external rotation. He still able to flex past 120 degrees. There is no lower extremity edema. He h as active ankle plantarflexion and dorsiflexion. Imaging: X-rays from 11/18/2018 demonstrate avascular necrosis with collapse of the femoral head. Plan: Khurram is here today for preoperative evaluation for right total hip arthroplasty from av ascular necrosis. He recently completed a left total hip arthroplasty and is very pleased w ith its pain control and range of motion. We reviewed the basics of the surgical procedure. We included a particular risks including fracture, dislocation, limb length discrepancy, D VT, and the need for revision in the future. He is still quite anxious to proceed. Consent was obtained. document ed in this encounter Plan of Treatment +--------+---------+ [...] | 2019 | Visit | Malignancy | [address] | | | | | | [facility] | | | | | | [place], [place] | | | | | | [address] | | | | | | [phone] | | | | | | | | +--------+---------+ + + + documented as of this encounter Visit Diagnoses + + | Diagnosis | + + | Avascular necrosis of bone of left hip (HCC) - Primary | + + documented in this encounter
--- OUTSIDE RECORDS SUMMARY | ~2019-05-17 | XMS | Encounter Summary ---
Demographics + + + | Address | [address] | | | [place] [address] | + + + | Home Phone [...] Providers + +------+ + | Care Pipe And Tank Fabricator Name | Role | Phone | + +------+ + | Pending Pcp Addition | PCP | Unavailable | + +------+ + Encounter Details +--------+ + + + + | Date | Type | Department | Care Team | Description | +--------+ + + + + | 06/09/ | Telephone | Dermatology | Victorina Rondon MD | | | 2015 | | Medical at [facility] | [address] | | | | | Floor [address] | | | | | [place] Mailcode: CH16D | [place] [address] | | | | | [facility] | [phone] | | | | | and [place], | | | | | | [facility] | | | | | | Floor [place], [place] | | | | | | [address] | | | | | | [phone] | | | +--------+ + + + [...] Rd | | | | | | [place], [place] | | | | | | [address] | | | | | | [phone] | | | | | | | | +--------+---------+ + + + documented as of this encounter Procedures + +--------+ + + + | Procedure Name | Priori | Date/Time | Associated Diagnosis | Comments | | | ty | | | | + +--------+ + + + | DERM PATHOLOGY | Routin | 06/09/2015 | Rash and | Results for this | | | e | | nonspecific skin | procedure are in the | | | | | eruption | results section. | + +--------+ + + + documented in this encounter Results DERM PATHOLOGY (06/09/2015) + + + + + + | Component | Value | Ref Range | Performed | Pathologist | | | | | At | Signature | + + + + + + | DERMATOPATH | SOURCE OF SPECIMEN:A Rt. | | [facility] | | | OLOGY(WET | calf, punch biopsy | | DERMATOPATH | | | MNT) | CLINICAL | | OLOGY | | | | DESCRIPTION:24 year old | | | | | | male with AML s/p | | | | | | induction chemotherapy | | | | | | now with new | | | | | | painfulnodules on | | | | | | bilateral calves x 3-4 | | | | | | days: Located on the | | | | | | left lateral calf(3) and | | | | | | on the right lateral | | | | | | and posterior calf (2) | | | | | | are ill-defined | | | | | | tenderpink-skin colored | | | | | | papules and nodules, | | | | | | 0.5-2cm in size. No | | | | | | ulceration orother | | | | | | surface change. DDx. | | | | | | includes deep fungal | | | | | | infection | | | | | | (disseminatedcandidiasis | | | | | | or aspergillus related | | | | | | to neutropenia) vs. | | | | | | erythema nodosum(2/2 AML | | | | | | vs chemo vs numerous | | | | | | other medications) vs. | | | | | | nodular | | | | | | vasculitis(idiopathic or | | | | | | induced by other | | | | | | infectious agents or | | | | | | drugs). Please | | | | | | performurgent PAS. | | | | | | GROSS | | | | | | DESCRIPTION:Received in | | | | | | formalin is a specimen | | | | | | labeled Grosjacques, | | | | | | Khurram:A: Specimen is | | | | | | labeled "Right calf" and | | | | | | consists of a 4mm punch | | | | | | of pink-redskin, cut to | | | | | | a depth of 7mm. The | | | | | | surgical margin is inked | | | | | | black; the tissueis | | | | | | bisected; and entirely | | | | | | submitted in cassette | | | | | | A1. MICROSCOPIC | | | | | | DESCRIPTION:There is a | | | | | | mostly uninvolved | | | | | | epidermis, overlying a | | | | | | sparsely inflamed | | | | | | upperdermis where there | | | | | | are rare lymphocytes | | | | | | surrounding superficial | | | | | | vessels.The subcutis | | | | | | appears mostly | | | | | | unaltered, and there is | | | | | | mild hemorrhage | | | | | | withinthe deeper dermis. | | | | | | A PAS stain is negative | | | | | | for fungal organisms. | | | | | | DIAGNOSIS:SPARSE | | | | | | SUPERFICIAL DERMATITIS. | | | | | | NOTE: The changes | | | | | | are minimal, and the | | | | | | cause of the patient's | | | | | | clinicallyappreciated | | | | | | lesions is uncertain. | | | | | | There is no evidence of | | | | | | infection, nor ofa | | | | | | panniculitis (erythema | | | | | | nodosum or nodular | | | | | | vasculitis). The sparse | | | | | | natureof the changes may | | | | | | relate to the patient's | | | | | | neutropenia, although a | | | | | | samplingsituation may | | | | | | be present, and | | | | | | correlation with tissue | | | | | | culture studies | | | | | | isrecommended. | | | | | | KPW:mm/09/20 My | | | | | | [...] Diagnostician: | | | | | | Everette Kaba | | | | | | AugustPathologistElectroni | | | | | | florin Signed 06/10/2015 | | | | | | 5:32PM | | | | + + + + + + + + | Specimen | + + | Biopsy | + + + + + + + | Performing | Address | City/State/Zipcode | Phone Number | | Organization | | | | + + + + + | [facility] | Mailcode [address], [address] | [place] [address] | | | DERMATOPATHOLOGY | [address] | | | + + + + + documented in this encounter Visit Diagnoses + + | Diagnosis | + + | Rash and nonspecific skin eruption - Primary Rash and other nonspecific skin eruption | + + documented in this encounter
--- OUTSIDE RECORDS SUMMARY | ~2019-05-17 | XMS | Encounter Summary ---
Demographics + + + | Address | [address] | | | [place] [address] | + + + | Home Phone [...] Team Providers + +------+ + | Care Aquatics Specialist Name | Role | Phone | + +------+ + | Pending Pcp Addition | PCP | Unavailable | + +------+ + Encounter Details +--------+ + + + + | Date | Type | Department | Care Team | Description | +--------+ + + + + | 04/03/ | Card Decorator | Center for | Yari Garcia MD | | | 2016 | | Hematologic | [address] | | | | | Malignancies at | [address] | | | | | [place] [facility] | [place], [place] | | | | | [address] | [address] | | | | | [address] Mailcode: | [phone] | | | | | [facility] | | | | | | [place], | | | | | | [place] [address] | | | | | | [phone] | | | +--------+ + + + [...] Rd | | | | | | [place], [place] | | | | | | [address] | | | | | | [phone] | | | | | | | | +--------+---------+ + + + documented as of this encounter Visit Diagnoses Not on filedocumented in this encounter"
--- OUTSIDE RECORDS SUMMARY | ~2019-05-17 | XMS | Encounter Summary ---
Demographics + + + | Address | [address] | | | [place] [address] | + + + | Home Phone [...] Team Providers + +------+ + | Care Booster Pump Operator Name | Role | Phone | + +------+ + | No Pcp Per Patient | PCP | Unavailable | + +------+ + Reason for Visit + + + | Reason | Comments | + + + | Postoperative visit | | + + + PROC - Inpatient Surgery (Routine) +--------+--------+ + [...] | both hips | Rd | Rd [place], | | | | | (HCC) | [place], [place] | [place] | | | | | Procedures | [address] | [address] | | | | | REQUEST TO | Phone: | Phone: | | | | | SURGERY | [phone] | [phone] | | | | | DRYING RACK CHANGER | Fax: | Fax: | | | | | [place] TOTAL HIP | [phone] | [phone] | | | | | | | | | | | | ARTHROPLASTY | | | +--------+--------+ + + + + Encounter Details +--------+---------+ + + + | Date | Type | Department | Care Team | Description | +--------+---------+ + + + | 10/18/ | Office | Orthopaedics at | Lobo Jeffers, | Hip joint | | 2017 | Visit | [facility] [address] | [address] | replacement status | | | | [address] | [address] | (Primary Dx) | | | | Mailcode: [id number] | [place], [place] | | | | | [facility] | [address] | | | | | [place], [place] | [phone] | | | | | [address] | | | | | | [phone] | | | +--------+---------+ + + + [...] + + + | Blood Pressure | 128/83 | 10/18/2016 10:05 AM | | | | | PDT | | + + + + + | Pulse | 96 | 10/18/2016 10:05 AM | | | [...] + + + + | Weight | 71.7 kg (158 lb) | 10/18/2016 10:05 AM | | | | | PDT | | + + + + + | Height | 190.5 cm (6' 3") | 10/18/2016 10:05 AM | | | | | PDT | | + + + + + | Body Mass Index | 19.75 | 10/18/2016 10:05 AM | | | | | PDT | | + + + + + documented in this encounter Progress Notes Lobo Jeffers MD - 10/18/2016 10:20 AM PDTDiagnosis: 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 He reports things are doing quite wel l after his surgery. He is currently off all pain medications. He is able to ambulate indepe ndently. He's not had any troubles with his incision. He reports no lower extremity edema. Exam: The incision for the posterior approach to his left hip is well-healed. There is no erythem a. There are no fluid collections. He has sensation intact on the anterior and posterior por tions of the hip. There is no lower extremity edema. He has palpable dorsal pedis pulse and no lower extremity edema. Imaging: X-rays of the hip demonstrate the prosthesis in an acceptable position with no obvious loos ening or subsidence. Plan: Khurrma is doing quite well after left total hip arthroplasty for avascular necrosis. I bower ve cautioned him about total hip precautions and his range of motion. I've also encouraged h im to gradually increase his activity slowly. He should have continued surveillance of his h ip. I would like him to return to see me in approximately 1 year. He should have new x-rays, AP pelvis, AP and lateral left hip. If he should have any difficulties he should return to see me early. Nilesh connell in this encounter Plan of Treatment +--------+---------+ [...] 2018 | Visit | Malignancy | [address] [facility] | | | | | | [address] | | | | | | [place], [place] | | | | | | [address] | | | | | | [phone] | | | | | | | | +--------+---------+ + + + documented as of this encounter Visit Diagnoses + + | Diagnosis | + + | Hip joint replacement status - Primary Hip joint replacement by other means | + + documented in this encounter
--- OUTSIDE RECORDS SUMMARY | ~2019-05-17 | XMS | Encounter Summary ---
Demographics + + + | Address | [address] | | | [place] [address] | + + + | Home Phone [...] Team Providers + +------+ + | Care Substation Operator Automatic Name | Role | Phone | [...] | | | | [facility] | [place], [place] | | | | | [address] | [address] | | | | | [address] Mailcode: | [phone] | | | | | [facility] | | | | | | [facility]ilion [place], | | | | | | [place] [address] | | | | | | [phone] | | | +--------+ + + + [...] | Visit | Malignancy | [address] [facility] | | | | | | [address] | | | | | | [place] | | | | | | [address] | | | | | | [phone] | | | | | | | | +--------+---------+ + + + documented as of this encounter Visit Diagnoses Not on filedocumented in this encounter"
--- OUTSIDE RECORDS SUMMARY | ~2019-05-17 | XMS | Encounter Summary ---
Demographics + + + | Address | [address] | | | [place] [address] | + + + | Home Phone [...] Team Providers + +------+ + | Care Multi Punch Operator Name | Role | Phone | + +------+ + | No Pcp Per Patient | PCP | Unavailable | + +------+ + Reason for Visit + + + | Reason | Comments | + + + | N&V - Nausea and | | | vomiting | | + + + | Other | loose stools | + + + Encounter Details +--------+ + + + + | Date | Type | Department | Care Team | Description | +--------+ + + + + | 10/09/ | Telephone | Center for | Aspen Cummins FNP | N&V - Nausea and | | 2017 | | Hematologic | [address] [facility] | vomiting; Other | | | | Malignancies at | [facility] | (loose stools) | | | | [facility] | [place], [place] | | | | | [address] [facility] | [address] | | | | | [facility] Mailcode: | [phone] | | | | | [facility] [place] | | | | | | [facility] [place], | | | | | | [place] [address] | | | | | | [phone] | | | +--------+ + + + [...] 2019 | Visit | Malignancy | [address] [facility] | | | | | | [address] | | | | | | [place] | | | | | | [address] | | | | | | [phone] | | | | | | | | +--------+---------+ + + + documented as of this encounter Visit Diagnoses Not on filedocumented in this encounter"
--- OUTSIDE RECORDS SUMMARY | ~2019-05-17 | XMS | Encounter Summary ---
Demographics + + + | Address | [address] | | | [place] [address] | + + + | Home Phone [...] Providers + +------+ + | Care Business Operations Coordinator Name | Role | Phone | [...] | | | | | achieved | [place], [place] | [facility] | | | | | remission | [address] | [place] | | | | | | Phone: | [facility]ilion | | | | | Procedures | [phone] | [place], [place] | | | | | Post BMT | Fax: | [address] | | | | | Auth to | [phone] | Phone: | | | | | included | | [phone] | | | | | facility, | | Fax: | | | | | diagnostics, | | [phone] | | | | | office | | | | | | | visits and | | | | | | | surgery | | | +--------+---------+ + + + + Encounter Details +--------+---------+ + + + | Date | Type | Department | Care Team | Description | +--------+---------+ + + + | 11/21/ | Office | Center for | Aspen Cummins FNP | S/P allogeneic bone | | 2016 | Visit | Hematologic | [address] [facility] | marrow transplant | | | | Malignancies at | [address] | (HCC) (Primary Dx) | | | | [facility] | [place], [place] | | | | | [address] | [address] | | | | | [address] Mailcode: | [phone] | | | | | [facility] | | | | | | Pavilion [place], | | | | | | [place] [address] | | | | | | [phone] | | | +--------+---------+ + + + [...] + + + | Blood Pressure | 133/87 | 11/22/2015 8:38 AM | | | | | PDT | | + + + + + | Pulse | 86 | 11/22/2015 8:38 AM | | | | | PDT | | + + + + + | Temperature | 36.8 C (98.2 F) | 11/22/2015 8:38 AM | | | | | PDT | | + + + + + | Respiratory Rate | 14 | 11/22/2015 8:38 AM | | | | | PDT | | + + + + + | Oxygen Saturation | 98% | 11/22/2015 8:38 AM | | | | | PDT | | + + + + + | Inhaled Oxygen | - | - | | | Concentration | | | | + + + + + | Weight | 83.7 kg (184 lb 8.4 | 11/22/2015 8:38 AM | | | | oz) | PDT | | + + + + + | Height | - | - | | + + + + + | Body Mass Index | 23.85 | 08/18/2015 4:35 PM | | | | | PST | | + + + + + documented in this encounter Patient Instructions Patient Instructions Aspen Cummins FNP - 11/22/2015 10:00 AM PDT1. We will call you this afternoon with any dose adjustment of your tacrolimus 2. No change in your prednisone dosing today 3. Stop applying triamcinolone cream unless your rash gets much worse 4. Beware of sun exposure as this can cause kbuby-hnslfn-nprn disease. Wear a hat, sungla sses, and sunscreen or long sleeves when outside. 5. Begin magnesium 133 mg by mouth twice daily. Increase your dose by 1 tablet by mouth p er day every 3 days as tolerated. Hold for loose stools 6. You do not need to come to clinic on for labs. I've sent a message to the [facility] [place] desk to ask them to cancel that appointment 7. Return to clinic to follow up with me and to begin your next cycle or azacitidine on Mo nday, 11/29/15 documented in this encounter Progress Notes Aspen Cummins FNP - 11/22/2015 7:11 AM PDT 11/22/2015 [facility] Primary [facility] MD: Yari Garcia MD Primary Oncologist: Yari Garcia MD Diagnosis: AMML, primary refractory Transplant Date: 08/27/15 Donor: MM URD (DPB1 permissive antigen mismatch, male, [id number]) Identifying Data: Khurram Kelly is a 25 [...] his L ankle. He was evaluated at [facility] on 06/[address] angiogram negative [...] acute myelomonocytic leukemia. [facility] was [facility] for further evaluation and man agement of his newly dx'd AML. Pt was admitted to [facility] on 05/26/15. Peripheral blood was sent for [...] CD34, variable CD56, variable CD117, and dim JQ189-pdavp mickey; promonocyte immunophenotype (70% by flow): CD11b, [...] durin g taper. He is currently day +87 s/p transplant, day 22 c1 of azacitidine and returns to clinic toda y for scheduled follow-up. Interim History: Khurram was most recently evaluated in [facility] by Yari Garcia MD on 11/15/15. He continues to feel well overall. Energy and st april are good, continues to fish intermittently. Appetite is good, eating and drinking wel l but notes taste disturbance after starting azacytidine. No c/o N/V/D. Rash a little more pronounced today, feels it became a bit more red after applying triamcinolone cream. Review of Systems Constitutional: Negative for fever, [...] 1 mg capsule) by mouth twice daily. Beulah 0.5 mg capsules for future use. Indications: [...] Route Frequency Provider Last Rate Last Dose heparin 10 unit/mL IV flush syringe 50 Units 50 Units Intracatheter PRN Yari Garcia MD Allergies Allergen Reactions Chlorhexidine Towelette Rash PAVAN cloths - ok to use Chloraprep for dresssing change per pt. Filed Vitals: 11/22/2015 8:38 AM Weight: 83.7 kg (184 lb 8.4 oz) BP: 133/87 Pulse: 86 Temp: 36.8 C (98.2 F) TempSrc: Oral Resp: 14 SpO2: 98% PainSc: 0 - Zero BMI: 23.86 kg/(m^2) Physical Exam Constitutional: He is well-developed, [...] Skin: Skin is warm and dry. Rash (very patchy erythematous maculopapular rash scattered to back, BUE with petechiae to BLE) noted. Psychiatric: Mood and affect normal. Vitals reviewed. CVC: Trifusion intact to R ant chest wall without erythema, induration Lab Results Component Value Date WBC 4.14 11/22/2015 HB 12.2 11/22/2015 HCT 35.1 11/22/2015 PLT 57 11/22/2015 MCV 100.9 11/22/2015 RDW 60.3 11/22/2015 Lab Results Component Value Date BICARB 28 11/22/2015 TBILI 0.2* 11/15/2015 CA 9.4 11/22/2015 CL 105 11/22/2015 CR 0.4* 11/22/2015 GLU 137* 11/22/2015 AP 53 11/15/2015 TP 6.8 11/15/2015 BUN 14 11/22/2015 ALB 3.9 11/15/2015 AST 35 11/15/2015 NA 141 11/22/2015 K 3.9 11/22/2015 ALT 112* 11/15/2015 Assessment/Plan: 1. Hematology: Khurram Kelly is currently day +87 s/p tBuCy-conditioned unrela edward donor PBSC transplant for primary refractory AML. His most recent marrow studies comple edward 09/27/15 showed a hypocellular marrow (30%) with trilineage hematopoiesis, < 2% blasts. K aryotype 46,XY [20]. VNTR showed no detectable host cells. Genetrails negative for previous NRAS mutation however showed a new IL7R variant (possibly a benign germline polymorphism of donor origin). He began maintenance azacitidine on 11/01/15, currently c1, day 22. His periph eral blood counts are slowly improving, remains anemic and thrombocytopenic with no evidence of disease by peripheral smear. No blood products are required today. --> continue to monitor CBC closely --> avoid neupogen until post day +100 due to high risk disease unless active infection --> repeat marrow studies today 2. Egldq-ed-Skjs Disease: Skin bx due to mild rash [08/27/15] showed subtle vacuolar interfa ce dermatitis most c/w early mild GvHD. Rash progressed to ~56% BSA at worst on 09/15/15; pred nisone 1 mg/kg was initiated. He initially responded but flared during taper. He has since b een able to taper prednisone to 10 mg po daily; continues with intermittent flares of rash, not requiring increased steroid dosing. He also developed low-level nausea and abd discomfor t concerning for GvHD, empirically treated with oral non-absorbables with resolution. He con tinues therapeutic tacrolimus. --> adjust tacrolimus dose to maintain a trough level of 5 to 10 --> continue oral non-absorbables --> no change in steroid dosing today --> hold triamcinolone cream as pt feel this may exacerbate rash Acute GvHD Staging: Skin: Grade 1 Gut: Grade 0 Liver: Grade 0 Overall stage: 1 3. Infectious Disease: Afebrile without localizing s/s infection. He continues prophylactic posaconazole and bactrim along with valganciclovir due to CMV reactivation. His CMV PCRs re main positive, as below. His most recent serum IgG level on 11/15/15 was adequate at 499. --> once pt has used his current [...] IgG < 300 --> immune reconstitution panel pending today --> hold post-transplant vaccines until azacitidine maintenance completed Lab Results Component Value Date CMVQUANTPCR Weak Positive* 11/15/2015 CMVQUANTPCR Weak Positive* 11/08/2015 CMVQUANTPCR 440* 11/01/2015 CMVQUANTPCR 1300* 10/25/2015 4. Fluid, Electrolyte and Nutrition: Notes taste disturbance associated with azacitidine th erapy. Feels he's eating well, adequate po fluid intake. Denies c/o N/V/D. His electrolyte s are reviewed; hypomagnesemic. --> replete Mg++ per supportive care orders for hypomagnesemia --> continue low bacteria diet through day +100 --> maintain hydration --> begin Mg+Pro 133 mg po BID; increase by 133 mg/day q3 days as tolerated; [...] continue current meds 7. Follow up --> RTC to begin c2 azacitidine, f/u with me on 11/29/15, sooner prn [facility] AT [address] Mailcode: [place] [address] documented in this enc ounter [...] 2018 | Visit | Malignancy | [address] [facility] | | | | | | [address] | | | | | | [place], [place] | | | | | | [address] | | | | | | [phone] | | | | | | | | +--------+---------+ + + + documented as of this encounter Visit Diagnoses + + | Diagnosis | + + | 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
--- OUTSIDE RECORDS SUMMARY | ~2019-05-17 | XMS | Encounter Summary ---
Demographics + + + | Address | [address] | | | [place] [address] | + + + | Home Phone [...] Team Providers + +------+ + | Care Anaesthetic Technician Name | Role | Phone | + +------+ + | No Pcp Per Patient | PCP | Unavailable | + +------+ + Reason for Visit +--------+ + | Reason | Comments | +--------+ + | Other | follow up on URI | +--------+ + Encounter Details +--------+ + + + + | Date | Type | Department | Care Team | Description | +--------+ + + + + | 04/09/ | Telephone | Center for | Yari Garcia MD | Other (follow up on | | 2017 | | Hematologic | [address] | URI) | | | | Malignancies at | [address] | | | | | [place] | [place], [place] | | | | | [address] | [address] | | | | | [address] Mailcode: | [phone] | | | | | [facility] | | | | | | [place], | | | | | | [place] [address] | | | | | | [phone] | | | +--------+ + + + [...] Rd | | | | | | [place] | | | | | | [address] | | | | | | [phone] | | | | | | | | +--------+---------+ + + + documented as of this encounter Visit Diagnoses Not on filedocumented in this encounter"
--- OUTSIDE RECORDS SUMMARY | ~2019-05-17 | XMS | Encounter Summary ---
Demographics + + + | Address | [address] | | | [place] [address] | + + + | Home Phone [...] Team Providers + +------+ + | Care Blend Technician Name | Role | Phone | + +------+ + | Zayda Hinton | PCP | | + +------+ + Encounter Details +--------+ + + + + | Date | Type | Department | Care Team | Description | +--------+ + + + + | 08/29/ | Document-Sc | Health Information | Other, Faculty | | | 2015 | anned | Services [address] | [phone] | | | | | [address] | | | | | | Mailcode: [id number] | | | | | | [facility] | | | | | | [place], [place] | | | | | | [address] | | | | | | [phone] | | | +--------+ + + + [...] | | | | | | [place], [place] | | | | | | [address] | | | | | | [phone] | | | | | | | | +--------+---------+ + + + documented as of this encounter Visit Diagnoses Not on filedocumented in this encounter"
--- OUTSIDE RECORDS SUMMARY | ~2019-05-17 | XMS | Encounter Summary ---
Demographics + + + | Address | [address] | | | [place] [address] | + + + | Home Phone [...] Providers + +------+ + | Care Sales And Support Center Agent Name | Role | Phone | + +------+ + | No Pcp Per Patient | PCP | Unavailable | + +------+ + Encounter Details +--------+ + + + + | Date | Type | Department | Care Team | Description | +--------+ + + + + | 09/01/ | Hospital | Pulmonary Function | Tech, Pfl Adult | | | 2017 | Encounter | Lab at [facility] [address] | | | | | [address] | [facility] | | | | | Mailcode: [id number] | [place] [address] | | | | | [place] | | | | | | [address] [place], [place] | | | | | | [address] | | | | | | [phone] | | | +--------+ + + + [...] | | | | | | [place], [place] | | | | | | [address] | | | | | | [phone] | | | | | | | | +--------+---------+ + + + documented as of this encounter Procedures + +--------+ + + + | Procedure Name | Priori | Date/Time | Associated Diagnosis | Comments | | | ty | | | | + +--------+ + + + | SPIROMETRY, PULM | Routin | 09/01/2016 | S/P allogeneic | Results for this | | FUNCTION LAB | e | 11:24 AM | bone marrow | procedure are [...] | SPECIAL | | | ION | [id number]: | | DIAGNOSTICS | | | | [...] 1.0 | | | | | | /Day: | | | | | | 0.8Yrs [...] 6.30 | | | | | | [id number] (L) | | | | | | | | | | | | 5.28 5.13 | | | | | | [id number]/FVC (%) | | | | | | [...] + + + + + + | IAJ08-72% | 4.64 | 5.09 L/sec | [facility] | | | PRE | | | SPECIAL | | | | | | DIAGNOSTICS | | | | | | - | | | | | | PULMONARY | | | | | | FUNCTION | | + + + + + + | ASK26-69% | 91 | % | [facility] | [...] YESSICA HARPER | [address] | [place], [place] | | | DIAGNOSTICS - | [address] | [address] | | | PULMONARY FUNCTION | | | | + + + + + documented in this encounter Visit Diagnoses + + | Diagnosis | + + | 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
--- OUTSIDE RECORDS SUMMARY | ~2019-05-17 | XMS | Encounter Summary ---
Demographics + + + | Address | [address] | | | [place] [address] | + + + | Home Phone [...] Providers + +------+ + | Care Sales Development Director Name | Role | Phone | [...] | | | | | | | [address] | | | | | | | Phone: | | | | | | | [phone] | | | | | | | Fax: | | | | | | | [phone] | +--------+--------+ + + + + Encounter Details +--------+ + + + + | Date | Type | Department | Care Team | Description | +--------+ + + + + | 06/28/ | Clinical | Center for | | Vaccination | | 2016 | Support | Hematologic | | | | | Staff | Malignancies at [facility] | | | | | | [address] | | | | | | [address] Mailcode: | | | | | | [facility] [place] | | | | | | [place], | | | | | | [place] [address] | | | | | | [phone] | | | +--------+ + + + [...] details. Date of transplant: 08/26/2015 Insurance: Payor: [employer] / Plan: [facility] [employer] / Product Type: PPO / Is patient eligible for free vaccine? No The patient was screened for the following contraindications to influenza vaccine and respo nses were as follows: Febrile illness today? No Allergy to eggs? No Prior history of a reaction to flu vaccine? No Prior history of Guillain-Pensacola syndrome? No (For patients receiving Fluarix): Allergy [...] [address] | | | | | | [place], [place] | | | | | | [address] | | | | | | [phone] | | | | | | | [...]
--- OUTSIDE RECORDS SUMMARY | ~2019-05-17 | XMS | Encounter Summary ---
Demographics + + + | Address | [address] | | | [place] [address] | + + + | Home Phone [...] Team Providers + +------+ + | Care Fiber Analyst Name | Role | Phone | + +------+ + | Pending Pcp Addition | PCP | Unavailable | + +------+ + Reason for Visit + + + | Reason | Comments | + + + | Examination Of Skin | GVHD | + + + Consultation (Urgent) +--------+ + + + + + | Status | Reason | Specialty | Diagnoses / | Referred By | Referred To | | | | | Procedures | Contact | Contact | +--------+ + + + + + | Closed | Specialty | Dermatology | Diagnoses | Jose, | Christofer, | | | Services | | GVHD (graft | Yari Jones MD | Waldemar Neri, | | | Required | | versus host | [address] | ,PhD 6935 | | | | | disease) | [address] | [address] | | | | | (FORMERLY [facility]) | [address] | Ave | | | | | Procedures | [place], [place] | [place], [place] | | | | | CONSULT TO | [address] | [address] | | | | | DERM & DERM | Phone: | Phone: | | | | | SURGERY | [phone] | [phone] | | | | | | Fax: | Fax: | | | | | | [phone] | [phone] | +--------+ + + + + + Encounter Details +--------+---------+ + + + | Date | Type | Department | Care Team | Description | +--------+---------+ + + + | 02/09/ | Office | Dermatology | Maxwell Prince, | Rash and other | | 2016 | Visit | Medical at [facility] | [address] | nonspecific skin | | | | Floor [address] | [place], [place] | eruption (Primary | | | | Ave Mailcode: [id number] | [address] | Dx) | | | | [facility] | [phone] | | | | | and [place], | | | | | [facility] | | | | | | [place], [place] | | | | | | [address] | | | | | | [phone] | | | +--------+---------+ + + + [...] of this encounter Patient Instructions Patient Instructions MarcusRicha, MADELAINE - 02/10/2016 9:35 AM PDTSUNSCREEN APPLICATION AN D UV PROTECTION ? Exposure to ultraviolet radiation is the leading cause of premature aging, and skin cance rs including melanoma. ? The [place] [employer] (AAD) recommends you wear a wide-brimmed hat, sun gla sses and sun protective clothing. If you must be in the sun, it is recommended to use a Bro ad spectrum sunscreen (blocking both UVA and UVB) with a sun protection factor (SPF) of 30+ (even on cloudy days) and reapply every two hours, or after swimming or heavy perspiration. ? Sunscreens should be applied generously and evenly. One fluid ounce (or the equivalent o f a full shot glass) is the approximate amount of sunscreen required for each person each ti me sunscreen is applied. ? Sunscreens have an expiration date and once that date is reached, they may lose effective ness and should be discarded. ? Sunscreen is also important for blocking reflected UVR (Ultraviolet Radiation). Sand, con crete, snow, water, and other surfaces reflect UVR which has the same effect to your skin as direct sunlight. THE "ABCDE" RULE AND MELANOMA DETECTION Asymmetry - compare one half of the growth to the other half to determine if the halves are equal in size. Border - If the mole's border is irregular, notched, scalloped, or indistinct, it should be checked by a doctor. Color - Variation of color (e.g., more than one color or shade) within a mole is a suspicio us finding. Diameter - Any mole that has a diameter larger than a pencil's eraser should be checked by a doctor. Evolving - If a mole is changing in size, shape, color, elevation, surface texture or becom es itchy or painful, it should be checked by a doctor. Additional sunscreen and melanoma information is available at the following websites: http://www.[facility]/xd/health/services/dermatology/for-patients/health_info.cfm - [facility] Derm atology http://www.aad.org/public/sun/smart.html - AAD Website documented in this encounter Progress Notes Maxwell Prince MD - 02/10/2016 10:23 AM PDTI have personally reviewed the patient's medic al history, medications and allergies. I have personally examined the patient. I have read a nd reviewed the resident physician's excellent note and agree with the assessment and plan. I was personally present for the entire procedure performed. lza Downing MD - 02/10/2016 9:27 AM PDTForma tting of this note might be different from the original. DERMATOLOGY NEW PATIENT VISIT Primary Care Provider: Pending Pcp ADDITION Referring Provider: Cherri Paul MD CHIEF COMPLAINT: Worsening rash HISTORY OF PRESENT ILLNESS: Khurram Kelly is a 25 y.o. 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 In addition to prednisone, pt is also using triamcinolone 0.1% cream BID. Today, pt repor ts that his current rash actually looks different than the previous skin eruptions that he e xperienced with GVHD. This rash began a little over a week ago after placement of a port.The rash started on his chest and gradually progressed to his waistline, axilla, upper arms, an d upper legs. The rash is highly pruritic. He has only noticed mild symptomatic improvement since increasing the prednisone from 5-10mg (alternated between 5mg and 10mg daily) to 20mg daily. He uses triamcinolone 0.1% cream BID with temporary relief after each application. He has also tried benadryl 1-2 tablets QHS with some improvement. Pt denies current fevers/chi lls, nausea/vomiting/diarrhea; no abdominal pain. Pt does report an ongoing cough and a rece nt cold before the onset of this rash. Pt has no further skin concerns. The patient's dermatology intake form was reviewed, signed, and dated. His relevant PMH, F H, and SH includes: PAST MEDICAL HISTORY: No history of melanoma or non-melanoma skin cancer. Malignant neoplasm (HCC) Pericarditis Gout Pancytopenia due to chemotherapy (HCC) 06/03/2015 Renal insufficiency 07/02/2015 Parotiditis FAMILY HISTORY: No history of melanoma or non-melanoma skin cancer. SOCIAL HISTORY: Pt is . Lives with in [place], [place] EtOH: has no history of alcohol use. Tobacco: has never smoked MEDICATIONS: Current Medication List Name Sig ACYCLOVIR 800 [...] capsule by mouth three time s daily. HYDROCORTISONE 1 % TOPICAL CREAM Apply topically to affected area two times daily. Apply a thin film to clean, dry skin and rub in gently. OLANZAPINE 10 MG TABLET Take 1 tablet by mouth once daily at bedtime. OMEPRAZOLE 20 MG CAPSULE,DELAYED RELEASE Take 1 capsule by mouth before breakfast. PREDNISONE ORAL Take by mouth. 10 mg by mouth every other day alternating with 5 mg by daphnie th every other day TACROLIMUS 0.5 MG CAPSULE Take 0.5 mg (one capsule) by mouth twice daily TRIAMCINOLONE ACETONIDE 0.1 % TOPICAL CREAM Apply topically to affected area three times da varun. Apply thin film to affected areas. ALLERGIES: Allergies Allergen Reactions Chlorhexidine Towelette Rash PAVAN cloths - ok to use Chloraprep for dresssing change per pt. REVIEW OF SYSTEMS: Please see HPI and PMH. In addition, he denies fever, chills, sweats, weight loss or loss of appetite, and has no further skin complaints. PHYSICAL EXAMINATION: There were no vitals taken for this visit. Well-developed, well-nourished male in no acute distress. Awake, alert and oriented. Plea gertrudis and cooperative mood. A complete skin examination was performed including the scalp/hair, head/face, eyelids/conj unctivae, lips, neck, chest, back, abdomen, bilateral arms and legs, bilateral hands and fee t, and nails. Findings were within normal limits except for the following: --Numerous well-demarcated small pink ovoid non-scaly macules coalescing into larger patche s located on trunk, b/l axilla, proximal upper arms, hips, and proximal upper legs. --No involvement of mouth, lips, palms/soles ASSESSMENT AND PLAN: 1. Diffuse pruritic macular eruption w/ history of ongoing acute GVHD; pt reports current rash appears different than his previous skin eruptions associated w/ GVHD. Ddx: acute GVHD, viral exanthem, drug eruption. Highly pruritic; symptoms incompletely controlled w/ prednis one 20mg daily and triamcinolone 0.1% cream BID -- 4 mm punch biopsy performed today; will contact patient with results and arrange for fur ther care if needed Procedure Note - Biopsy by Punch Technique R abdomen Prior to beginning the procedure the team paused to verify the patient's identity, as well as the procedure to be performed and the biopsy site. All equipment required was ready and available. The patient was positioned appropriately. After PARQ addressed and scar factors discussed, the area was prepped with an isopropyl alcohol pad. Anesthesia was obtained by douglass bcutaneous infusion of buffered 1% lidocaine with 1:100,000 epinephrine. The punch biopsy w as performed and the resultant defect closed with 4-0 nylon suture. Blood loss was minimal. The site was dressed with white petrolatum jelly and a bandage. Verbal and written wound c are instructions were given to the patient. Patient reports no pain after the procedure. -- Suture(s) to be removed in 14 days. -- Switch to triamcinolone 0.1% ointment BID PRN -- Continue prednisone 20mg daily, as prescribed by hem/onc -- In anticipation of biopsy results showing GVHD, orders have been placed for PUVA. Will c all pt next week with biopsy results and discuss treatment plan at that time. RETURN VISIT: 1 month w/ Dr. Christofer Downing M.D. Resident, Department of Dermatology [facility] 02/10/2016 documented in this encounter Plan of Treatment [...] [address] | | | | | | [place], [place] | | | | | | [address] | | | | | | [phone] | | | | | | | | +--------+---------+ + + + documented as of this encounter Procedures + +--------+ + + + | Procedure Name | Priori | Date/Time | Associated Diagnosis | Comments | | | ty | | | | + +--------+ + + + | MD BIOPSY OF SKIN | Routin | 02/10/2016 | Rash and other | | | LESION | e | 10:00 AM | nonspecific skin | | | | | PDT | eruption | | + +--------+ + + + | DERM PATHOLOGY | Routin | 02/10/2016 | Rash and other | Results for this | | | e | | nonspecific skin | procedure are in the | | | | | eruption | results section. | + +--------+ + + + documented in this encounter Results DERM PATHOLOGY (02/10/2016) + + + + + + | Component | Value | Ref Range | Performed | Pathologist | | | | | At | Signature | + + + + + + | DERMATOPATH | SOURCE OF SPECIMEN:A Rt. | | [facility] | | | OLOGY(WET | abdomen, punch biopsy | | DERMATOPATH | | | MNT) | CLINICAL | | OLOGY | | | | DESCRIPTION:Morbilliform | | | | | | eruption in pt with | | | | | | AML, hx acute GVHD 2 | | | | | | months ago. Now withnew | | | | | | diffuse rash started a | | | | | | week ago. Chronic GVHD | | | | | | vs viral vs drug. | | | | | | GROSS | | | | | | DESCRIPTION:Received in | | | | | | formalin is a specimen | | | | | | labeled Leticia, | | | | | | Khurram:A: Specimen is | | | | | | labeled "R abdomen" and | | | | | | consists of a 4mm punch | | | | | | of white-tanskin, cut to | | | | | | a depth of 5mm. The | | | | | | surgical margin is inked | | | | | | black; the tissueis | | | | | | bisected; and entirely | | | | | | submitted in cassette | | | | | | A1. MICROSCOPIC | | | | | | DESCRIPTION:In the right | | | | | | abdomen punch biopsy, | | | | | | there is epidermis with | | | | | | subtle vacuolarinterface | | | | | | change and a | | | | | | superficial perivascular | | | | | | mixed infiltrate | | | | | | containinglymphocytes | | | | | | and numerous | | | | | | eosinophils. | | | | | | DIAGNOSIS:VACUOLAR | | | | | | INTERFACE MIXED | | | | | | DERMATITIS WITH | | | | | | EOSINOPHILS. NOTE: | | | | | | The differential | | | | | | diagnosis includes GRAFT | | | | | | VERSUS HOST DISEASE | | | | | | andDRUG HYPERSENSITIVITY | | | | | | REACTION. The presence | | | | | | of eosinophils is not | | | | | | typicalof viral | | | | | | exanthem. | | | | | | VBK:ets02/11/16 My | | | | | | [...] Diagnostician: | | | | | | Serina Rodriguez | | | | | | AugustPathologistElectroni | | | | | | florin Signed 02/12/2016 | | | | | | 3:42PM | | | | + + + [...] + + + + | [facility] | [address]Y, [address] | [place] [address] | | | DERMATOPATHOLOGY | [address] | | | + + + + + documented in this encounter Visit Diagnoses + + | Diagnosis | + + | Rash and other nonspecific skin eruption - Primary | + + documented in this encounter
--- OUTSIDE RECORDS SUMMARY | ~2019-05-17 | XMS | Encounter Summary ---
Demographics + + + | Address | [address] | | | [place] [address] | + + + | Home Phone [...] Team Providers + +------+ + | Care Watermaster Name | Role | Phone | + +------+ + | Zayda Hinton | PCP | | + +------+ + Encounter Details +--------+ + + + + | Date | Type | Department | Care Team | Description | +--------+ + + + + | 12/15/ | Pharmacy | Specialty Pharmacy | | | | 2015 | Visit | Services [address] | | | | | | [address] | | | | | | [place], [place] | | | | | | [address] | | | | | | [phone] | | | +--------+ + + + [...] [address] | | | | | | [place], [place] | | | | | | [address] | | | | | | [phone] | | | | | | | | +--------+---------+ + + + documented as of this encounter Visit Diagnoses Not on filedocumented in this encounter"
--- OUTSIDE RECORDS SUMMARY | ~2019-05-17 | XMS | Encounter Summary ---
Demographics + + + | Address | [address] | | | [place] [address] | + + + | Home Phone [...] Team Providers + +------+ + | Care Slicing Machine Tender Name | Role | Phone | + +------+ + | Zayda Hinton | PCP | | + +------+ + Encounter Details +--------+ + + + + | Date | Type | Department | Care Team | Description | +--------+ + + + + | 10/24/ | Pharmacy | Specialty Pharmacy | | | | 2015 | Visit | Services [address] | | | | | | [address] | | | | | | [place], [place] | | | | | | [address] | | | | | | [phone] | | | +--------+ + + + [...] 2019 | Visit | Malignancy | [address] [facility] | | | | | | [address] | | | | | | [place], [place] | | | | | | [address] | | | | | | [phone] | | | | | | | | +--------+---------+ + + + documented as of this encounter Visit Diagnoses Not on filedocumented in this encounter"
--- OUTSIDE RECORDS SUMMARY | ~2019-05-17 | XMS | Encounter Summary ---
Demographics + + + | Address | [address] | | | [place] [address] | + + + | Home Phone [...] Team Providers + +------+ + | Care Pigment Pusher Name | Role | Phone | + +------+ + | Zayda Hinton | PCP | | + +------+ + Encounter Details +--------+ + + + + | Date | Type | Department | Care Team | Description | +--------+ + + + + | 09/13/ | Pharmacy | Specialty Pharmacy | | | | 2015 | Visit | Services [address] | | | | | | [address] | | | | | | [place], [place] | | | | | | [address] | | | | | | [phone] | | | +--------+ + + + [...] 2019 | Visit | Malignancy | [address] [facility] | | | | | | [address] | | | | | | [place], [place] | | | | | | [address] | | | | | | [phone] | | | | | | | | +--------+---------+ + + + documented as of this encounter Visit Diagnoses Not on filedocumented in this encounter"
--- OUTSIDE RECORDS SUMMARY | ~2019-05-17 | XMS | Encounter Summary ---
Demographics + + + | Address | [address] | | | [place] [address] | + + + | Home Phone [...] Providers + +------+ + | Care Senior Qc Technician Name | Role | Phone | + +------+ + | Pending Pcp Addition | PCP | Unavailable | + +------+ + Encounter Details +--------+ + + + + | Date | Type | Department | Care Team | Description | +--------+ + + + + | 08/09/ | Hospital | Pulmonary Function | Tech, Pfl Adult | | | 2016 | Encounter | Lab at [facility] [address] | | | | | [address] | [facility] | | | | | Mailcode: [id number] | [place] [address] | | | | | [address] | | | | | | [address] [place], [place] | | | | | | [address] | | | | | | [phone] | | | +--------+ + + + [...] 2018 | Visit | Malignancy | [address] [facility] | | | | | | [address] | | | | | | [place], [place] | | | | | | [address] | | | | | | [phone] | | | | | | | [...] this encounter Results SPIROMETRY, PULM FUNCTION LAB (08/09/2015 12:54 PM PST) + + + + + + | Component | Value | Ref Range | Performed | Pathologist | | | | | At | Signature | + + + + + + | PULMONARY | Name: RAZA | | YESSICA | | | INTERPRETAT | KHURRAM FRANZ ID: | | SPECIAL | | | ION | [id number]: | | DIAGNOSTICS | | | | [...] for | | | | | | terminal worker meds.Dyspnea: | | | | | | [...] 6.31 | | | | | | [id number] (L) | | | | | | [...] + + + + + + | FZZ21-68% | 4.12 | 5.15 L/sec | [facility] | | | PRE | | | SPECIAL | | | | | | DIAGNOSTICS | | | | | | - | | | | | | PULMONARY | | | | | | FUNCTION | | + + + + + + | CXX30-08% | 79 | % | [facility] | [...] YESSICA HARPER | [address] | [place], [place] | | | DIAGNOSTICS - | [address] | [address] | | | PULMONARY FUNCTION | | | | + + + + + documented in this encounter Visit Diagnoses + + | Diagnosis | + + | Encounter for long-term current use of medication | + + documented in this encounter"
--- OUTSIDE RECORDS SUMMARY | ~2019-05-17 | XMS | Encounter Summary ---
Demographics + + + | Address | [address] | | | [place] [address] | + + + | Home Phone [...] Providers + +------+ + | Care Medical Staff Credentialing Coordinator Name | Role | Phone | + +------+ + | Zayda Hinton | PCP | | + +------+ + Encounter Details +--------+ + + + + | Date | Type | Department | Care Team | Description | +--------+ + + + + | 02/06/ | Pharmacy | Specialty Pharmacy | | | | 2015 | Visit | Services [address] | | | | | | [address] | | | | | | [place], [place] | | | | | | [address] | | | | | | [phone] | | | +--------+ + + + [...] [address] | | | | | | [place], [place] | | | | | | [address] | | | | | | [phone] | | | | | | | | +--------+---------+ + + + documented as of this encounter Visit Diagnoses Not on filedocumented in this encounter"
--- OUTSIDE RECORDS SUMMARY | ~2019-05-17 | XMS | Encounter Summary ---
Demographics + + + | Address | [address] | | | [place] [address] | + + + | Home Phone [...] Team Providers + +------+ + | Care Geophysicist Name | Role | Phone | + +------+ + | Pending Pcp Addition | PCP | Unavailable | + +------+ + Reason for Visit +---------+ + | Reason | Comments | +---------+ + | Rash | hive like | +---------+ + | Itching | | +---------+ + Encounter Details +--------+ + + + + | Date | Type | Department | Care Team | Description | +--------+ + + + + | 02/03/ | Telephone | Center for | Yari Garcia MD | Rash (hive like ); | | 2015 | | Hematologic | [address] Itching | | | | [facility] | [address] | | | | | [address] | [place], [place] | | | | | [address] Mailcode: | [address] | | | | | [id number] | [phone] | | | | | [place], | | | | | | [place] [address] | | | | | | [phone] | | | +--------+ + + + [...] [address] | | | | | | [place] | | | | | | [address] | | | | | | [phone] | | | | | | | | +--------+---------+ + + + documented as of this encounter Visit Diagnoses Not on filedocumented in this encounter"
--- OUTSIDE RECORDS SUMMARY | ~2019-05-17 | XMS | Encounter Summary ---
Demographics + + + | Address | [address] | | | [place] [address] | + + + | Home Phone [...] Team Providers + +------+ + | Care Skilled Nursing Case Manager Name | Role | Phone | [...] + + + + | 09/25/ | Diagnostic | Center for | | [...] | | | | | | [facility] | | | | | | [place] [address] | | | | | | [phone] | | | +--------+ + + + [...] documented as of this encounter Progress Notes Alicia Stoner MA - 09/25/2016 3:30 PM PDTLeft ac accessed with a 21 gauge butterfly needle . Good Blood return noted for draw. Standard of care labs drawn and sent to Core Lab. Site dressed with sterile gauze and Coban. documented in this encou nter Plan of [...] Rd | | | | | | [place], [place] | | | | | | [address] | | | | | | [phone] | | | | | | | | +--------+---------+ + + + documented as of this encounter Procedures + +--------+ + + + | Procedure Name | Priori | Date/Time | Associated Diagnosis | Comments | | | ty | | | | + +--------+ + + + | BMP + MAG, POC CHM | Routin | 09/25/2016 | S/P allogeneic | Results for this | | | e | 3:47 PM | bone marrow | procedure are in the | | | | PDT | transplant (HCC) | results section. 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) | | + +--------+ + + + | CBC+DIFF,POC | Routin | 09/25/2016 | S/P allogeneic | Results for this [...] + | LIVER SET | Urgent | 09/25/2016 | S/P allogeneic | Results for this | | (AST,ALT,BILI | | 3:31 PM | bone marrow | procedure are [...] encounter Results BMP + MAG, POC CHM (09/25/2016 3:47 PM PDT) + +---------+ + + + [...] +---------+ + + + | POTASSIUM, | 4.8 | 3.4 - 5.0 | [facility] - [...] + + + | LDH, POC | 297 (H) | 0 - 206 U/L | [...] [facility] | [address] | [place], [place] | | | RUTHIE CARTER OF [facility] | [address] | [address] | | | TESTS | | | | + + + + + CBC+DIFF,POC (09/25/2016 3:45 PM PDT) + + + + + + | Component | Value | Ref Range | Performed | Pathologist | | | | | At | Signature | + + + + + + | WBC POC | 10.6 | 4.4 - 11.0 | [facility] - | | | | | 10*3/uL | [facility] | | | | | | RUTHIE CARTER | | | | | | OF CARE | | | | | | TESTS | | + + + + + + | RBC POC | 4.09 (L) | 4.50 - 6.00 | [facility] [...] + + + | MCV POC | 93.9 | 80.0 - 96.0 fL | [facility] - | | | | | | [facility] | | | | | | RUTHIE CARTER | | | | | | OF CARE | | | | | | TESTS | | + + + + + + | MCH POC | 31.5 | 28.5 - 32.3 pg | [facility] [...] + + | RDW SD, POC | 43.4 | 35.1 - 46.3 fL | [facility] - | | | | | | [facility] | | | | | | RUTHIE CARTER | | | | | | OF CARE | | | | | | TESTS | | + + + + + + | PLT POC | 338 | 150 - 400 | [facility] - | | | | | 10*3/uL | [facility] | | | | | | MEMA, POINT | | | | | | [...] + + + + | NEUTROPHIL% | 44.5 (L) | 50.0 - 70.0 % | [facility] - | | | POC | | | [facility] | | | | | | EMMA POINT | | | | | | OF CARE | | | | | | TESTS | | + + + + + + | LYMPH% POC | 37.4 | 18 - 42 % | [facility] - | | | | | | [facility] | | | | | | [facility] POINT | | | | | | OF CARE | | | | | | TESTS | | + + + + + + | MONO %, POC | 7.7 | 3.5 - 9.0 % | [facility] - | | | | | | [facility] | | | | | | [facility] POINT | | | | | | OF CARE | | | | | | TESTS | | + + + + + + | EOS %, POC | 10.0 (H) | 1.0 - 3.0 % | [...] + + + | LYMPH# POC | 4.0 | 1.0 - 4.8 | [facility] - [...] + + | EOS #, POC | 1.1 (H) | 0.0 - 0.5 | [facility] [...] [facility] | [address] | [place], [place] | | | [facility] POINT OF CARE | [address] | [address] | | | TESTS | | | | + + + + + LIVER SET (AST,ALT,BILI TOTAL,BILI DIRECT,ALK PHOS,ALB,PROT TOTAL) (09/25/2016 3:31 PM PDT ) + +---------+ + + [...] + + + | ALK PHOS | 146 (H) | 53 - 128 U/L | [facility] | | | | | | LABORATORY | | | | | | SERVICES, | | | | | | CORE | | + +---------+ + + + | AST(SGOT) | 41 | <=41 U/L | [facility] | | | | | | LABORATORY | | | | | | SERVICES, | | | | | | CORE | | + +---------+ + + + | ALT (SGPT) | 55 | <=60 U/L | [facility] | | [...] YESSICA LOZA | [address] | [place] [address] | | | SERVICES, INDRA | [address] [...]
--- OUTSIDE RECORDS SUMMARY | ~2019-05-17 | XMS | Encounter Summary ---
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 Surgery check-in location: Admitting - [facility], ninth floor lobby Surgery Check in [...] it is after office hours, call the [facility] shell trim operator at [phone] and ask them to page him or [...] Alert and appropriate; nl affect. alert Findings: Singe Winder nial nerves 2-12 intact, Motor 5/5 strength [...] to this patient's care. Isa Salter MD [facility] PRE[facility]IVE [facility]ICINE CLINIC AT [facility] 4TH FLOOR DAY STAY [address] [place] [address] I spent time (35 minutes, [...] Rd | | | | | | [place], [place] | | | | | | [address] | | | | | | [phone] | | | | | | | [...] | + +--------+ + + + | MS COLLECTION VENOUS | Routin | 09/06/2016 | [...] [facility] | [address] | [place] [address] | | | SERVICES, | [address] [...] | + + + + + | [facility] | [address] | [place] [address] | | | SERVICES, | [address] [...] [facility] | [address] | [place] [address] | | | SERVICES, CORE | [address] [...]
--- OUTSIDE RECORDS SUMMARY | ~2019-05-17 | XMS | Encounter Summary ---
Demographics + + + | Address | [address] | | | [place] [address] | + + + | Home Phone [...] Team Providers + +------+ + | Care Boiler Water Tester Name | Role | Phone | + +------+ + | No Pcp Per Patient | PCP | Unavailable | + +------+ + Encounter Details +--------+------+ + + + | Date | Type | Department | Care Team | Description | +--------+------+ + + + | 12/18/ | Lab | Laboratory, | | S/P allogeneic bone | | 2016 | | Specimen Collection | | marrow transplant | | | | at [facility] 3rd Floor | | ([facility]) | | | | [address] | | | | | | [place], | | | | | | [place] [address] | | | | | | [phone] | | | +--------+------+ + + + [...] Rd | | | | | | [place], [place] | | | | | | [address] | | | | | | [phone] | | | | | | | | +--------+---------+ + + + documented as of this encounter Procedures + +--------+ + + + | Procedure Name | Priori | Date/Time | Associated Diagnosis | Comments | | | ty | | | | + +--------+ + + + | CBC AND AUTO DIFF | Routin | 12/18/2016 | S/P allogeneic | Results for this | | | e | 12:55 PM | bone marrow | procedure are in the | | | | PDT | transplant ([facility]) | results section. | + +--------+ + + + | CBC, WITH | Routin | 12/18/2016 | S/P allogeneic | Results for this | | DIFFERENTIAL | e | 12:55 PM | bone marrow | procedure are in the | | | | PDT | transplant ([facility]) | results section. | + +--------+ + + + | COMPLETE METABOLIC | Routin | 12/18/2016 | S/P allogeneic | Results for this | | SET | e | 12:55 PM | bone marrow | procedure are in the | | (NA,K,CL,CO2,BUN,CRE | | PDT | transplant ([facility]) | results section. | | AT,GLUC,CA,AST,ALT,B | | | | | | YUN TOTAL,ALK | | | | | | PHOS,ALB,PROT TOTAL) | | | | | + +--------+ + + + | PHOSPHORUS, PLASMA | Routin | 12/18/2016 | S/P allogeneic | Results for this | | | e | 12:55 PM | bone marrow | procedure are in the | | | | PDT | transplant ([facility]) | results section. | + +--------+ + + + | BILIRUBIN DIRECT | Routin | 12/18/2016 | S/P allogeneic | Results for this | | | e | 12:55 PM | bone marrow | procedure are in the | | | | PDT | transplant ([facility]) | results section. | + +--------+ + + + | URIC ACID, PLASMA | Routin | 12/18/2016 | S/P allogeneic | Results for this | | | e | 12:55 PM | bone marrow | procedure are in the | | | | PDT | transplant ([facility]) | results section. | + +--------+ + + + | MAGNESIUM, PLASMA | Routin | 12/18/2016 | S/P allogeneic | Results for this | | | e | 12:55 PM | bone marrow | procedure are in the | | | | PDT | transplant ([facility]) | results section. | + +--------+ + + + | LDH TOTAL, PLASMA | Routin | 12/18/2016 | S/P allogeneic | Results for this | | | e | 12:55 PM | bone marrow | procedure are in the | | | | PDT | transplant ([facility]) | results section. | + +--------+ + + + documented in this encounter Results CBC AND AUTO DIFF (12/18/2016 12:55 PM PDT) + + + + + + | Component | Value | Ref Range | Performed | Pathologist | | | | | At | Signature | + + + + + + | WHITE CELL | 10.42 | 3.50 - 10.80 | [facility] | | | COUNT | | K/cu mm | LABORATORY | | | | | | SERVICES, | | | | | | CORE | | + + + + + + | RED CELL | 4.37 (L) | 4.50 - 6.00 | [facility] | | | COUNT | | M/cu mm | LABORATORY | | | | | | SERVICES, | | | | | | CORE | | + + + + + + | HEMOGLOBIN | 14.0 | 13.5 - 17.5 | [facility] | | | | | g/dL | LABORATORY | | | | | | SERVICES, | | | | | | CORE | | + + + + + + | HEMATOCRIT | 41.8 | 41.0 - 53.0 % | [facility] | | | | | | LABORATORY | | | | | | SERVICES, | | | | | | CORE | | + + + + + + | MCV | 95.7 | 80.0 - 96.0 fL | [facility] [...] + + + | RDW SD | 49.7 (H) | 35.1 - 46.3 fL | [facility] | | | | | | LABORATORY | | | | | | SERVICES, | | | | | | CORE | | + + + + + + | PLATELET | 248 | 150 - 400 K/cu | [facility] [...] + + + + | LYMPHOCYTE | 19.8 | 18.0 - 42.0 % | [facility] | | | % | | | LABORATORY | | | | | | SERVICES, | | | | | | CORE | | + + + + + + | MONOCYTE % | 4.4 | 3.5 - 9.0 % | [facility] | | | | | | LABORATORY | | | | | | SERVICES, | | | | | | CORE | | + + + + + + | EOS % | 0.2 (L) | 1.0 - 3.0 % | [...] + + + + | NEUTROPHIL | 7.80 (H) | 1.80 - 7.70 | [facility] | | | # | | K/cu mm | LABORATORY | | | | | | SERVICES, | | | | | | CORE | | + + + + + + | LYMPHOCYTE | 2.06 | 1.00 - 4.80 | [facility] | | | # | | K/cu mm | LABORATORY | | | | | | SERVICES, | | | | | | CORE | | + + + + + + | MONOCYTE # | 0.46 | 0.10 - 0.90 | [facility] | [...] + + + + + | [facility] | [address] | [place] [address] | | | SERVICES, INDRA | [address] | | | + + + + + LDH TOTAL, PLASMA (12/18/2016 12:55 PM PDT) + +---------+ + + + | Component | Value | Ref Range | Performed | Pathologist | | | | | At | Signature | + +---------+ + + + | LD TOTAL, | 150 | <=250 U/L | [facility] | | [...] [facility] | [address] | [place] [address] | | | SERVICES, CORE | [address] | | | + + + + + BILIRUBIN DIRECT (12/18/2016 12:55 PM PDT) + +---------+ + + + [...] + + + + + | [facility] | [address] | [place] [address] | | | SERVICES, CORE | [address] | | | + + + + + URIC ACID, PLASMA (12/18/2016 12:55 PM PDT) + +-------+ + + + [...] [facility] | [address] | [place] [address] | | | SERVICES, CORE | [address] | | | + + + + + PHOSPHORUS, PLASMA (12/18/2016 12:55 PM PDT) + +-------+ + + + | Component | Value | Ref Range | Performed | Pathologist | | | | | At | Signature | + +-------+ + + + | PHOSPHORUS, | 2.5 | 2.4 - 4.7 mg/dL | [facility] [...] [facility] | [address] | [place] [address] | | | SERVICES, CORE | [address] | | | + + + + + MAGNESIUM, PLASMA (12/18/2016 12:55 PM PDT) + +-------+ + + + [...] | + + + + + | [facility] | [address] | [place] [address] | | | SERVICES, CORE | [address] | | | + + + + + COMPLETE METABOLIC SET (NA,K,CL,CO2,BUN,CREAT,GLUC,CA,AST,ALT,BILI TOTAL,ALK PHOS,ALB,PROT TOTAL) (12/18/2016 12:55 PM PDT) + +---------+ + + + [...] +---------+ + + + | CREATININE | 0.95 | 0.70 - 1.30 | [facility] | [...] 4.3 | 3.4 - 5.0 | [facility] | [...] + + + | ALT (SGPT) | 73 (H) | <=60 U/L | [facility] | [...] | + + + + + | [facility] | [address] | [place] [address] | | | INDRA SHARIF | [address] | | | + + + + + documented in this encounter Visit Diagnoses + + | Diagnosis | + + | 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
--- OUTSIDE RECORDS SUMMARY | ~2019-05-17 | XMS | Encounter Summary ---
Demographics + + + | Address | [address] | | | [place] [address] | + + + | Home Phone [...] Team Providers + +------+ + | Care Corn Crop Supervisor Name | Role | Phone | [...] 01/13/ | Refill | Center for | Em Saunders, | Refill Request | | 2015 | | Hematologic | [address] | | | | | Malignancies at | [address] | | | | | [facility] | [place], [place] | | | | | [address] | [address] | | | | | [address] Mailcode: | [phone] | | | | | [id number] [facility] | | | | | | [place], | | | | | | [place] [address] | | | | | | [phone] | | | +--------+--------+ + + + [...] Rd | | | | | | [place] | | | | | | [address] | | | | | | [phone] | | | | | | | | +--------+---------+ + + + documented as of this encounter Visit Diagnoses Not on filedocumented in this encounter"
--- OUTSIDE RECORDS SUMMARY | ~2019-05-17 | XMS | Encounter Summary ---
Demographics + + + | Address | [address] | | | [place] [address] | + + + | Home Phone [...] Team Providers + +------+ + | Care Steel Molder Name | Role | Phone | + [...] | | | | | remission | [address] | [facility] | | | | | | Phone: | [facility] | | | | | Procedures | [phone] | [place], [place] | | | | | Post BMT | Fax: | [address] | | | | | Auth to | [phone] | Phone: | | | | | included | | [phone] | | | | | facility, | | Fax: | | | | | diagnostics, | | [phone] | | | | | office | | | | | | | visits and | | | | | | | surgery | | | +--------+---------+ + + + + Encounter Details +--------+---------+ + + + | Date | Type | Department | Care Team | Description | +--------+---------+ + + + | 10/06/ | Office | Center for | Saunders, Em L, | Acute myeloid | | 2016 | Visit | Hematologic | PA-C [address] [facility] | leukemia (AML), M4 | | | | Malignancies at | [address] | ([facility])- primary | | | | [facility] | [place], [place] | induction failure | | | | [address] [facility] | [address] | (Primary Dx); S/P | | | | [address] Mailcode: | [phone] | allogeneic bone | | | | [facility] [place] | | marrow transplant | | | | [facility] [place], | | ([facility]) | | | | [place] [address] | | | | | | [phone] | | | +--------+---------+ + + + [...] + + + | Blood Pressure | 116/73 | 10/07/2015 10:23 AM | | | | | PDT | | + + + + + | Pulse | 85 | 10/07/2015 10:23 AM | | | | | PDT | | + + + + + | Temperature | 36.7 C (98.1 F) | 10/07/2015 10:23 AM | | | | | PDT | | + + + + + | Respiratory Rate | 16 | 10/07/2015 10:23 AM | | | | | PDT | | + + + + + | Oxygen Saturation | 98% | 10/07/2015 10:23 AM | | | | | PDT | | + + + + + | Inhaled Oxygen | - | - | | | Concentration | | | | + + + + + | Weight | 74.9 kg (165 lb 2 | 10/07/2015 10:23 AM | | | | oz) | PDT | | + + + + + | Height | - | - | | + + + + + | Body Mass Index | 21.34 | 08/18/2015 4:35 PM | | | | | PST | | + + + + + documented in this encounter Patient Instructions Patient Instructions Em Saunders PA-C - 10/07/2015 8:51 AM PDT-Take your temperature regularly (3-4 x daily) and to call immediately for a temperature of 100.4 or greater. -We'll call you to adjust your Tacrolimus if necessary. -Decrease steroids. New dose: Take prednisone 25 mg (two and a half tablets) once daily. -Start taking Beclomethasone 1 mL suspension four times daily. This is for GvHD upper gut s ymptoms. A prescription has been sent to the [facility] pharmacy. -Start taking Budesonide 3 mg capsule three times daily. This is for GvHD lower gut symptom s. A prescription has been sent to the [facility] pharmacy. -The Beclomethasone and Budesonide are likely to have a high cost (co-pay). If these medica tions are expensive then please wait to purchase them and notify us. We can try to obtain me dication assistance. -Start taking Bactrim DS 1 tablet twice daily on Mondays and . You can start this on Sun10/11/15. This is for PCP prophylaxis. A prescription has been sent to the [facility] pharmac y. documented in this encounter Progress Notes Em Saunders PA-C - 10/07/2015 8:55 AM PDTFormatting of this note might be different f rom the original. 10/07/2015 [facility] Physician: Yari Garcia MD Local Oncologist: Yari Garcia MD PCP: Pending Pcp ADDITION Hematologic Malignancy: Primary refractory AML Conditioning regimen: tBuCy Date of transplant: 08/27/2015 (two day 0s) Donor: MM URD (DPB1 permissive antigen mismatch, male, [id number]) Hematologic History: Khurram Kelly is a 25 [...] his L ankle. He was evaluated at [facility] ED on 06/[address] angiogram negative [...] myelomonocytic leukemia. He was referred to [facility] for further evaluation and man agement of his newly dx'd AML. Pt was admitted to [facility] on 05/26/15. Peripheral blood was sent [...] CD34, variable CD56, variable CD117, and dim XO025-viydm mickey; promonocyte immunophenotype (70% by flow): CD11b, [...] of primary refractory AML, currently d ay +41, s/p tBuCy conditioned MM URD SCT. Interval History: presents to clinic today for his routine scheduled visit. He is accompanied by his who is his caregiver in clinic today. His nausea is about the same, which is mil d and he continues the Zofran BID. His stomach has felt "off" though and his stomach feels l sharon "ehh." It is difficult for him to describe his stomach upset since it is so mild, but it has been ongoing for a week. He is not sure if it is nausea. He denies cramping. He is no l onger having loose stool and does not feel constipated. No focal area of abdominal pain. The discomfort will usually pass on its own without intervention. He has been having normal BMs for him once daily. He does have an appetite and is taking in 3 meals with some snacks. He is getting in 2 L of fluids. His rash remains resolved and has not required the steroid crea ms for the past couple of days. He continues to be active daily, which includes walking and taking his son to the park with his . Review of Systems: General: Denies fevers, chills, [...] Cardiovascular: No chest pain,lightheadedness,shortness of breath. Gastrointestinal: +nausea, mild general upset (feeling "off") Denies indigestion, vomiting , diarrhea, constipation, abdominal pain, bloody stools or dark [...] 0.5 mg capsule) in the mor jayna and 1 mg (one 1 mg capsule) in the evening TACROLIMUS 1 MG CAPSULE Take 1.5 mg (one 1 mg capsule plus one 0.5 mg capsule) in the morni ng and 1 mg (one 1 mg capsule) in the evening TRIAMCINOLONE ACETONIDE 0.1 % TOPICAL CREAM Apply to affected area three times daily. Apply thin film to affected areas. SULFAMETHOXAZOLE 800 MG-TRIMETHOPRIM 160 MG TABLET Take 1 tablet by mouth twice daily (ever y Sunday and ). Vitals: BP 116/73 | Pulse 85 | Temp (Src) 36.7 C (98.1 F) (Oral) | RR 16 | Wt 74.9 kg (165 lb 2 oz) | SpO2 98% | BMI 21.35 kg/(m^2) Pre-transplant weight 165 pounds Physical Exam: [...] 72 hours (or 3 results) Recent Labs 10/07/15 1029 WBC 10.7 HB 11.1* HCT 33.0* PLT 167 MONOPERC 10.9* BASOPERC 0.4 EOSPERC 3.1* Chemistries: Last 72 Hours (or 3 results): Recent Labs 09/10/15 2300 09/11/15 2313 09/12/15 2326 09/30/15 0757 09/30/15 0837 10/04/15 1225 10/04/15 1242 10/07/15 1015 10/07/15 1043 NA 144 143 142 < > 138 -- -- 138 -- 139 K 3.7 3.9 3.9 < > 4.7 -- -- 4.4 -- 3.9 CL 113* 109* 109* < > 96* -- -- 99 -- 97 BICARB 21 25 25 < > 29 -- -- 27 -- 29 BUN 22* 19 18 < > 17 -- -- 21* -- 20 CR 0.91 0.94 0.96 < > 0.8 -- -- 0.8 -- 0.7 GLU 90 95 121* < > 85 -- -- 99 -- 106* CA 8.1* 8.0* 8.3* < > 9.3 -- -- 9.3 -- 9.3 AST 18 22 19 < > -- 23 26 -- 25 -- ALT 28 31 35 < > -- 68* 88* -- 87* -- AP 63 83 96 < > -- 71 74 -- 66 -- TBILI 0.5 0.5 0.4 < > -- 0.2* 0.3 -- 0.3 -- TP 5.8* 6.1* 6.1* < > -- 6.3* 6.9 -- 6.7 -- ALB 2.7* 2.9* 3.0* < > -- 3.4* 3.9 -- 3.9 -- ANIONGAP 10 9 8 -- -- [...] 5.96 x 10^6 per kg -BMT Day: +41 Pertinent Diagnostics: -Around day + 30 repeat marrow studies completed, per guidelines; BM Bx done 09/27/15: hypoc ellular marrow (30%) with trilineage hematopoiesis, no increase in blasts (less then 2%). Cy togenetics normal male 46,XY [20]. VNTR with no host cells detected. [facility] PENDING CBC reviewed and reveals anemia. Platelet recovered independent of transfusion support. -Around day + 60, we will [...] eruption of lymphocyte recovery and early mild cwhlu-mpsjtp-qbqv disease. On 09/13, rash in volved ~15% [...] protocol. -Hypomagnesemia: replace in clinic PRN Plan: -Follow-up on 09/26 B[facility]x [facility] -The tacrolimus dose will be adjusted when the tacrolimus trough is available. -Taper prednisone down to 25 mg once daily as of 10/06. Next taper planned 10/14/15 if rash co ntinues to improve. 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 -Start Budesonide 3 mg capsule three times daily for possible GvHD lower gut symptoms. -Start Bactrim DS 1 tab BID Mondays and , patient to start taking 10/10 -Return to clinic 10/11/15 to see me, sooner prn. Em Saunders PA-C [facility] AT [address] Mailcode: [id number] [phone] documented in this encounter Plan of Treatment [...] Rd | | | | | | [place], [place] | | | | | | [address] | | | | | | [phone] | | | | | | | [...] | | | | | mmol/L | [facility] | | [...] - [facility] | [address] | [place], [place] | | | RUTHIE CARTER OF CARE | [facility] | [address] | | | TESTS | | | [...] [facility] | [address] | [place], [place] | | | RUTHIE CARTER OF KRISTA | [address] | [address] | | | TESTS | | | [...] [facility] | [address] | [place] [address] | | | SERVICES, CORE | P[address] [...] | + + + + + | [facility] | [address] | [place] [address] | | | SERVICES, CORE | [address] [...] | + + + + + | [facility] | [address] | [place] [address] | | | SERVICES, SPECIAL | [address] [...] 2 fold may not reflect true | [facility] | | biological changes and must [...] | | | characteristics determined by the [facility] | | | Molecular [...] | | | Act of 1988. The [facility] Molecular | | | Diagnostic Center is a fully licensed and/or accredited clinical | | | laboratory under CLIA, CAP, and the [facility]. | | + + + + + + + + | Performing | Address | City/State[facility] | Phone Number | | Organization | | | | + + + + + | [facility] | [address] | [place] [address] | | | DIAGNOSTIC | [address] [...] | + + + + + | [facility] | [address] | [place] [address] | | | SERVICES, SPECIAL | PARK [...]
--- OUTSIDE RECORDS SUMMARY | ~2019-05-17 | XMS | Encounter Summary ---
Demographics + + + | Address | [address] | | | [place] [address] | + + + | Home Phone [...] Team Providers + +------+ + | Care Motorboat Mechanic Helper Name | Role | Phone | + +------+ + | Pending Pcp Addition | PCP | Unavailable | + +------+ + Reason for Visit + + + | Reason | Comments | + + + | Lab Draw | | + + + | Dressing change | p picc | + + + | Other | bmbx | + + + | Transfusion | plt | + + + | Central venous | TPA | | catheter | | + + + Benefits Check [...] | | | | | | | [address] | | | | | | | [place]ier Carrera | | | | | | | [place], | | | | | | | [place] | | | | | | | [address] | | | | | | | Phone: | | | | | | | [phone] | | | | | | | Fax: | | | | | | | [phone] | +--------+--------+ + + + + Encounter Details +--------+ + + + + | Date | Type | Department | Care Team | Description | +--------+ + + + + | 08/09/ | Clinical | [facility] | | Lab Draw; Dressing | | 2016 | Support | Hematologic | | change (p picc); | | | Staff | [facility] at [facility] | | Other (bmbx); | | | | [address] | | Transfusion (plt); | | | | Wally Burger Mailcode: | | Central venous | | | | [id number] | | catheter (TPA) | | | | [place], | | | | | | [place] [address] | | | | | | [phone] | | | +--------+ + + + [...] + + + | Blood Pressure | 101/58 | 08/09/2015 10:50 AM | | | | | PST | | + + + + + | Pulse | 70 | 08/09/2015 10:50 AM | | | | | PST | | + + + + + | Temperature | 36.7 C (98.1 F) | 08/09/2015 10:50 AM | | | | | PST | | + + + + + | Respiratory Rate | 16 | 08/09/2015 10:50 AM | | | | | PST [...] encounter Progress Notes Mirza Carlin RN - 08/09/2015 9:22 AM PSTPt Late today and stated that he did not have any food prior to lab draw. -Draw 2-1 dated itinerary labs today per Christina. Pt denied fever, chills, bleeding, diarrhea, constipation, mouth sores, or nausea and able to drink at least 2 L oral fluids at home. Pt c/o Lower back pain 07/18 - taking Oxycodone for the pain. - Fall precaution/need for a d river ( spouse) was discussed. Pre-procedure pain level: none - Bleeding at the insertion site - dried blood scab 0.[address] from the insertion site on the PICC line. - unable to remove the scab. Power PICC intact to left upper extremity without erythema or induration. Dressing removed , skin intact. No s/s exit site infection. 3.5 cm line exposed. Using a PICC Dressing Wasserman ge kit and sterile technique, site cleansed with Chloraprep. Skin prep applied prior to keely ssing application. Biopatch applied with Tegaderm dressing. Positive pressure valves mendes ed to each port. All lumens pulse flushed with 10 mL NS. Patient tolerated procedure withou t difficulty. Post-procedure pain level: none VAD Lab Draw: Power PICC accessed per protocol. Good blood return noted. Appropriate waste discarded. Labs drawn and sent. Power PICC pulse flushed with 20 mL NS. IDM was collected. Call the lab- no answer - left message and paged Audrey Velasquez when sent. - Still shows as Collected.- Ana Paula stated that she has the blood sample @ 15:52. 1 RN stated that the pt had rash after PRBC transfused on -3. - recommended Premed with PRBC Not for plt. Orders to transfuse platelet product for a platelet count today at 11 with LENS COATER order. Each u nit was checked by two RNs to confirm the unit number, ABO and Rh type printed on tag matche d information on blood bag and to confirm crossmatch compatibility. At the bedside, two RNs verified the correct patient using two unique identifiers, confirmed the unit number, ABO a nd Rh type printed on tag matched the information on blood bag and confirmed crossmatch comp atibility. Informed consent was verified. The patient was not premedicated. He received 1 unit of platelets per Provider s orders. Transfusion was tolerated well without complication. Frequent vital signs were monitored throughout the transfusion and reviewed by me. Pt denied itching, hives, CP, back pain, or SOB. For transfusion details, see ONC Lines & Transfusions doc flowsheet. Pt left for CT/PFL and RTC for BmBx at 14:00. Morphine Sulfate 3 mg IV given as slow IVP via PICC - 1 mg WASTED. Fall precaution was di scussed with the pt and caregiver/hook up driver. See MAR. BmBx site CDI.- Pt stated understanding to keep the dressing CDI for 24 hours, monitor for s/sx of infection at the BmBx site, and call MD if any concerns. Fall precaution was also d iscussed with the pt and family. Pt stated that sound recording technician informed the pt that purple lumen is sluggish. - previously positive flush and blood return with dressing change. 15:00 - Alteplase 2 mg IV instilled into purple lumen of patient's Power PICC. SEE MAR. OK to DC pt with TPA instilled rather than waiting at the clinic with LENS COATER order. - Pt RTC We . - waitstaff captain was placed and "DO NOT USE" TPA label attached to Purple lumen - Pt state d understanding to inform nurses/provider not to use as TPA instilled. Pt stated understanding to practice low blood count precautions and call the clinic if feve r, chills, bleeding, or any concerns. Pt DC home via wheelchair with family @ 15:15 after LENS COATER/BmBx visit. RTC Sunday. Requested via follow up to Dr. Garcia if she can place PRBC pre-med Benadryl - has only PRN B enadryl. 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 | + +--------+ + + + | ENGRAFTMENT | Routin | 08/09/2015 | AML (acute myeloid | Results for this | | PRE-TRANSPLANT, | e | 8:32 AM | leukemia) ([facility]) | procedure are in the | | BLOOD (LABEL) | | PST | | results section. | + +--------+ + + + | INF DISEASE MISC | Routin | 08/09/2015 | AML (acute myeloid | Results for this | | | e | 8:32 AM | leukemia) ([facility]) | procedure are in the | | | | PST | | results section. | + +--------+ + + + | INF DISEASE NATHALIA | Routin | 08/09/2015 | AML (acute myeloid | Results for this | | | e | 8:32 AM | leukemia) ([facility]) | procedure are in the | | | | PST | | results section. | + +--------+ + + + | INF DISEASE SCREEN | Routin | 08/09/2015 | AML (acute myeloid | Results for this | | | e | 8:32 AM | leukemia) ([facility]) | procedure are in the | | | | PST | | results section. | + +--------+ + + + | INFECT DISEASE | Routin | 08/09/2015 | AML (acute myeloid | Results for this | | MARKER PANEL | e | 8:32 AM | leukemia) ([facility]) | procedure are in the | | | | PST | | results section. | + +--------+ + + + | LIT SPECIMEN | Routin | 08/09/2015 | AML (acute myeloid | | | HANDLING FEE | e | 8:32 AM | leukemia) ([facility]) | | | | | PST | | | + +--------+ + + + | CMV PCR | Routin | 08/09/2015 | AML (acute myeloid | Results for this | | QUANTITATION, PLASMA | e | 8:32 AM | leukemia) ([facility]) | procedure are in the | | | | PST | | results section. | + +--------+ + + + | VARICELLA ZOSTER | Routin | 08/09/2015 | AML (acute myeloid | Results for this | | IGG, SERUM | e | 8:32 AM | leukemia) ([facility]) | procedure are in the | | | | PST | | results section. | + +--------+ + + + | HSV ANTIBODY, SERUM | Routin | 08/09/2015 | AML (acute myeloid | Results for this | | | e | 8:32 AM | leukemia) ([facility]) | procedure are in the | | | | PST | | results section. | + +--------+ + + + | TOMMY VOSS VIRUS | Routin | 08/09/2015 | AML (acute myeloid | Results for this | | PANEL, SERUM | e | 8:32 AM | leukemia) ([facility]) | procedure are in the | | | | PST | | results section. | + +--------+ + + + | TOXOPLASMA IGG AB, | Routin | 08/09/2015 | AML (acute myeloid | Results for this | | SERUM | e | 8:32 AM | leukemia) ([facility]) | procedure are in the | | | | PST | | results section. | + +--------+ + + + | HEPATITIS A AB IGM, | Routin | 08/09/2015 | AML (acute myeloid | Results for this | | SERUM | e | 8:32 AM | leukemia) ([facility]) | procedure are in the | | | | PST | | results section. | + +--------+ + + + | HEPATITIS B SURFACE | Routin | 08/09/2015 | AML (acute myeloid | Results for this | | AB QUAL, SERUM | e | 8:32 AM | leukemia) ([facility]) | procedure are in the | | | | PST | | results section. | + +--------+ + + + | HEPATITIS A AB | Routin | 08/09/2015 | AML (acute myeloid | Results for this | | SCREEN, SERUM | e | 8:32 AM | leukemia) ([facility]) | procedure are in the | | | | PST | | results section. | + +--------+ + + + | INR | Routin | 08/09/2015 | AML (acute myeloid | Results for this | | | e | 8:31 AM | leukemia) ([facility]) | procedure are in the | | | | PST | | results section. | + +--------+ + + + | COMPLETE METABOLIC | Routin | 08/09/2015 | AML (acute myeloid | Results for this | | SET | e | 8:31 AM | leukemia) ([facility]) | procedure are in the | | (NA,K,CL,CO2,BUN,CRE | | PST | | results section. | | AT,GLUC,CA,AST,ALT,B | | | | | | YUN TOTAL,ALK | | | | | | PHOS,ALB,PROT TOTAL) | | | | | + +--------+ + + + | APTT (ACT. PART. | Routin | 08/09/2015 | AML (acute myeloid | Results for this | | THROMBO TIME) | e | 8:31 AM | leukemia) ([facility]) | procedure are in the | | | | PST | | results section. | + +--------+ + + + | ANTIBODY SCREEN | Routin | 08/09/2015 | AML (acute myeloid | Results for this | | | e | 8:31 AM | leukemia) ([facility]) | procedure are in the | | | | PST | | results section. | + +--------+ + + + | TYPE AND SCREEN | Routin | 08/09/2015 | AML (acute myeloid | Results for this | | | e | 8:31 AM | leukemia) ([facility]) | procedure are in the | | | | PST | | results section. | + +--------+ + + + | ABO & RH TYPE | Routin | 08/09/2015 | AML (acute myeloid | Results for this | | | e | 8:31 AM | leukemia) ([facility]) | procedure are in the | | | | PST | | results section. | + +--------+ + + + | PHOSPHORUS, PLASMA | Routin | 08/09/2015 | AML (acute myeloid | Results for this | | | e | 8:31 AM | leukemia) ([facility]) | procedure are in the | | | | PST | | results section. | + +--------+ + + + | BILIRUBIN DIRECT | Routin | 08/09/2015 | AML (acute myeloid | Results for this | | | e | 8:31 AM | leukemia) ([facility]) | procedure are in the | | | | PST | | results section. | + +--------+ + + + | URIC ACID, PLASMA | Routin | 08/09/2015 | AML (acute myeloid | Results for this | | | e | 8:31 AM | leukemia) ([facility]) | procedure are in the | | | | PST | | results section. | + +--------+ + + + | MAGNESIUM, PLASMA | Routin | 08/09/2015 | AML (acute myeloid | Results for this | | | e | 8:31 AM | leukemia) ([facility]) | procedure are in the | | | | PST | | results section. | + +--------+ + + + | LDH TOTAL, PLASMA | Routin | 08/09/2015 | AML (acute myeloid | Results for this | | | e | 8:31 AM | leukemia) ([facility]) | procedure are in the | | | | PST | | results section. | + +--------+ + + + | CHOLESTEROL TOTAL, | Routin | 08/09/2015 | AML (acute myeloid | Results for this | | PLASMA | e | 8:31 AM | leukemia) ([facility]) | procedure are in the | | | | PST | | results section. | + +--------+ + + + | CBC AND AUTO DIFF | Routin | 08/09/2015 | AML (acute myeloid | Results for this | | | e | 8:04 AM | leukemia) ([facility]) | procedure are in the | | | | PST | | results section. | + +--------+ + + + | CBC, WITH | Routin | 08/09/2015 | AML (acute myeloid | Results for this | | DIFFERENTIAL | e | 8:04 AM | leukemia) ([facility]) | procedure are in the | | | | PST | | results section. | + +--------+ + + + | ENGRAFTMENT | Routin | 08/09/2015 | AML (acute myeloid | Results for this | | PRE-TRANSPLANT, | e | | leukemia) ([facility]) | procedure are in the | | BLOOD (PP) | | | | results section. | + +--------+ + + + | ENGRAFTMENT | Routin | 08/09/2015 | AML (acute myeloid | Results for this | | PRE-TRANSPLANT, | e | | leukemia) ([facility]) | procedure are in the | | BLOOD | | | | results section. | + +--------+ + + + documented in this encounter Results PRODUCT - PLATELET PHERESIS LEUKOREDUCED (08/09/2015 9:48 AM PST) + + + + [...] + + + + | PRODUCT | [id number] | | [facility] | | | UNIT [...] + + + + | EXPIRATION | [id number] | | [facility] | | | DATE [...] + + + + | BLOOD | [id number] | | [facility] | | | PRODUCT [...] + + + + | [facility] | [address] | [place] [address] | | | PATHOLOGY | [address] | | | + + + + + HEPATITIS A AB IGM, SERUM (08/09/2015 8:32 AM PST) + + [...] + | [facility] - | [address] | [place] [address] | | | [place] | | | | + + + + + LIT SPECIMEN HANDLING FEE (08/09/2015 8:32 AM PST) + + | Specimen | + + | Blood - Blood | | (substance) | + + + + + + + | Performing | Address | City/State/Zipcode | Phone Number | | Organization | | | | + + + + + | [facility] - | [address], | [place] [address] | | | IMMUNOGENETICS/TRANS | [address] | | | | PLANT LABORATORY | | | | + + + + + INF DISEASE [facility] (08/09/2015 8:32 AM PST) + + + [...] + + + | Testing performed at [facility] | [facility] | | Laboratory [address] [place] [address] | CELL PROCESSING | | | LAB | + + + + + + + + | Performing | Address | City/State/Zipcode | Phone Number | | Organization | | | | + + + + + | [facility] | [address] | [place], [place] | | | PROCESSING LAB | [address] | [address] | | + + + + + INF DISEASE NATHALIA (08/09/2015 8:32 AM PST) + + + [...] [facility] CELL | [address] | [place], [place] | | | PROCESSING LAB | [address] | [address] | | + + + + + INF DISEASE SCREEN (08/09/2015 8:32 AM PST) + + + [...] + + + | Testing performed at [facility] | [facility] | | Laboratory [address] [place] [address] | CELL PROCESSING | | | LAB | + + + + + + + + | Performing | Address | City/State/Zipcode | Phone Number | | Organization | | | | + + + + + | [facility] | [address] | [place], [place] | | | PROCESSING LAB | [address] | [address] | | + + + + + ENGRAFTMENT PRE-TRANSPLANT, BLOOD (LABEL) (08/09/2015 8:32 AM PST) + + + [...] + + + | [facility] | [address] | [place] [address] | | | DIAGNOSTIC | [address] [...] CMV DNA | Undetected | Undetected, | [facility] | | | [...] 2 fold may not reflect true | [facility] | | biological changes and must be [...] | | | characteristics determined by the [facility] | | | Molecular Diagnostic Center. It has not been cleared or approved by | | | the Food and Drug Administration. FDA approval is not required for | | | clinical use of this test, and therefore validation was done as | | | required under the requirements of the Clinical Laboratory Improvement | | | Act of 1988. The [facility] | | | Diagnostic Center is a fully licensed and/or accredited clinical | | | laboratory under CLIA, [facility], and the [facility]. | | + + + + + + + + | Performing | Address | City/State/[facility] Cent[facility] | Phone Number | | Organization | | | | + + + + + | [facility] | [address] | [place] [address] | | | DIAGNOSTIC | [address] [...] at | | | | | | [email or web address] | | | | | | x. [...] at | | | | | | [email or web address]/[email or web address] | | | | | | x. [...] at | | | | | | [email or web address] | | | | | | x. [...] at | | | | | | [email or web address] | | | | | | x.Performed by [facility] | | | | | | [facility],[address] [place] [address] | | | | | | [place] [address] | | | | | | [phone].Need [employer]. | | | | | | [facility], [address], | | | | [...] [facility] | [address] | [place], [place] | | | UN[facility] P[facility] - INT[facility] | | [address] | | + + + + + [...] + | [facility] - | [address] | [place] [address] | | | [place] | | | [...] | + + + + + | [facility] - | [address] | [place] [address] | | | [place] | | | [...] + | [facility] - | [address] | [place] [address] | | | [place] | | | [...] + | [facility] - | [address] | [place] [address] | | | [place] | | | [...] [place] | | | | | | [place] [address] | | | | | | [phone]. | | | | | | [place] [...] [facility] | [address] | [place], [place] | | | UNIV P[facility] - [facility] | | [address] | | + + + + + ANTIBODY SCREEN (08/09/2015 8:31 AM PST) + + + + + [...] [facility] | [address] | [place] [address] | | | SERVICES, | [address] | | | | TRANSFUSION MEDICINE | | | | + + + + + ABO & RH TYPE (08/09/2015 8:31 AM PST) + + + + + [...] | + + + + + | [facility] [employer] | [address] | [place] [address] | | | SERVICES, | [address] [...] [facility] | [address] | [place] [address] | | | SERVICES, CORE | P[address] [...] + + | [facility] | [address] | [place] [address] | | | SERVICES, CORE | P[address] [...] [facility] | [address] | [place] [address] | | | SERVICES, CORE | WALLY [...] [facility] | [address] | [place] [address] | | | SERVICES, CORE | PARK [...] [facility] | [address] | [place] [address] | | | SERVICES, CORE | WALLY [...] [facility] | [address] | [place] [address] | | | SERVICES, INDRA | PARK [...] + + | [facility] | [address] | [place] [address] | | | SERVICES, CORE | P[address] [...] + | [facility] | [address] | [place] [address] | | | SERVICES, CORE | WALLY [...] | | | LABORATORY | | | YEMENI | | | SERVICES, | | | [...] [facility] | [address] | [place] [address] | | | SERVICES, CORE | [address] | | | + + + + + CBC AND AUTO DIFF (08/09/2015 8:04 AM PST) + + + + + + | Component | Value | Ref Range | Performed | Pathologist | | | | | At | Signature | + + + + + + | WHITE CELL | 0.43 (L) | 4.40 - 11.00 | [facility] | | | COUNT | | K/cu mm | LABORATORY | | | | | | SERVICES, | | | | | | CORE | | + + + + + + | RED CELL | 2.84 (L) | 4.50 - 6.00 | [facility] [...] + + + + | HEMATOCRIT | 22.4 (L) | 41.0 - 53.0 % | [facility] | | | | | | LABORATORY | | | | | | SERVICES, | | | | | | CORE | | + + + + + + | MCV | 78.9 (L) | 80.0 - 96.0 [...] + + + | RDW SD | 32.4 (L) | 35.1 - 46.3 fL | [facility] | | | | | | LABORATORY | | | | | | SERVICES, | | | | | | CORE | | + + + + + + | PLATELET | 11 (L) | 150 - 400 K/cu | [...] [facility] | [address] | [place] [address] | | | SERVICES, CORE | [address] | | | + + + + + ENGRAFTMENT PRE-TRANSPLANT, BLOOD (PP) (08/09/2015) + + + + + + | Component | Value | Ref Range | Performed | Pathologist | | | | | At | Signature | + + + + + + | ENGRAFTMENT | A Pre-Transplant | | [facility] | | | | Engraftment Sample | | DIAGNOSTIC | | | PRE-TRANSPL | Storage, BloodSpecimen | | | | | ANT, BLOOD | Type: EDTA Blood; Date | | LABORATORIE | | | | of Transplant: 08/26/15; | | S | | | | Donor Name/ID: | | | | | | TBDSupplemental | | | | | | indications: Acute | | | | | | myeloid leukemia | | | | | | Patient Results:0.6ug of | | | | | | DNA was isolated from | | | | | | the recipient | | | | | | pre-transplant specimen. | | | | | | Upon your | | | | | | request, DNA was | | | | | | isolated from the | | | | | | recipient | | | | | | pre-transplantspecimen | | | | | | using a Qiagen column or | | | | | | salt precipitation | | | | | | method. The | | | | | | highmolecular weight DNA | | | | | | isolated from the | | | | | | pre-transplant specimen | | | | | | is ofsufficient quantity | | | | | | and quality for future | | | | | | use in monitoring | | | | | | therecipient's | | | | | | engraftment status after | | | | | | bone marrow | | | | | | transplantation. | | | | | | IsolatedDNA from the | | | | | | pre-transplant recipient | | | | | | will be kept in the | | | | | | [facility] | | | | | | [facility] Molecular | | | | | | Diagnostic Center in a | | | | | | manner consistentwith it | | | | | | remaining medically | | | | | | viable for | | | | | | post-transplant | | | | | | engraftmentmonitoring. | | | | | | Thank [...] | | | | | determined bythe [facility] | | | | | | [facility] [...] | | | | | | The [facility] | | | | | | DiagnosticsLaboratories | | | | | | is a fully licensed | | | | | | and/or accredited | | | | | | clinical laboratoryunder | | | | | | CLIA, [place], and the | | | | | | State of [place]. 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 | | achieved remission | + + documented in this encounter Administered Medications + +--------+ +------+------+------+ | Medication Order | MAR | Action | Dose | Rate | Site | | | Action | Date | | | | + +--------+ +------+------+------+ | alteplase (CATHFLO ACTIVASE) | Given | 08/09/19 | 2 mg | | | | injection 2 mg 2 mg, | | 16 3:00 | | | | | Intracatheter, NEEDED, | | PM PST | | | | | Starting 08/09/15 at 1449, | | | | | | | Until Sun08/09/15 at 2153, per | | | | | | | catheter protocol | | | | | | + +--------+ +------+------+------+ +---+---+ | | | +---+---+ + +---------+ +------+---+---+ | morphine injection 3 mg 3 mg, | New Bag | 08/09/19 | 3 mg | | | | intravenous, ONCE, 1 dose, Mon | | 16 2:40 | | | | | 08/09/15 at 1430 | | PM PST | | | | + +---------+ +------+---+---+ +---+---+ | | | +---+---+ documented in this encounter
--- OUTSIDE RECORDS SUMMARY | ~2019-05-17 | XMS | Encounter Summary ---
Demographics + + + | Address | [address] | | | [place] [address] | + + + | Home Phone [...] Providers + +------+ + | Care Engineering Operations Leader Name | Role | Phone | + +------+ + | Pending Pcp Addition | PCP | Unavailable | + +------+ + Reason for Visit + + + | Reason | Comments | + + + | Transplant | LIT HLA Crossmatch analysis | + + + Encounter Details +--------+ + + + + | Date | Type | Department | Care Team | Description | +--------+ + + + + | 08/17/ | Documentati | Kidney Transplant | Luis Carlos Sanders, | Transplant (LIT HLA | | 2016 | on | at [facility] 3rd Floor | [address] | Crossmatch analysis) | | | | [address] | [address] | | | | | Debi Burger Mailcode: | [place], [place] | | | | | [facility] | [address] | | | | | [address] | [phone] | | | | | [place], [place] | | | | | | [address] | | | | | | [phone] | | | +--------+ + + + [...] 2019 | Visit | Malignancy | [address] | | | | | | [address] | | | | | | [place], [place] | | | | | | [address] | | | | | | [phone] | | | | | | | | +--------+---------+ + + + documented as of this encounter Visit Diagnoses Not on filedocumented in this encounter"
--- OUTSIDE RECORDS SUMMARY | ~2019-05-17 | XMS | Encounter Summary ---
Demographics + + + | Address | [address] | | | [place] [address] | + + + | Home Phone [...] + +------+ + | Care Director Of Laboratory Operations Name | Role | Phone | + [...] | 2018 | | Hematologic | [address] | | | | | Malignancies at | [facility] | | | | | [address] | [place], [place] | | | | | [address] [facility] | [address] | | | | | [facility] Mailcode: | [phone] | | | | | [facility] [address] | | | | | | [facility], | | | | | | [place] [address] | | | | | | [phone] | | | +--------+--------+ + + + [...] 2019 | Visit | Malignancy | [address] [facility] | | | | | | [address] | | | | | | [place] | | | | | | [address] | | | | | | [phone] | | | | | | | | +--------+---------+ + + + documented as of this encounter Visit Diagnoses Not on filedocumented in this encounter"
--- OUTSIDE RECORDS SUMMARY | ~2019-05-17 | XMS | Encounter Summary ---
Demographics + + + | Address | [address] | | | [place] [address] | + + + | Home Phone [...] Team Providers + +------+ + | Care Concrete Foreman Name | Role | Phone | + +------+ + | Pending Pcp Addition | PCP | Unavailable | + +------+ + Encounter Details +--------+ + + + + | Date | Type | Department | Care Team | Description | +--------+ + + + + | 09/12/ | Chemistry Faculty Member | Center for | Wilian Plascencia, | Acute myeloid | | 2016 | | Hematologic | HUMAN RESOURCES BENEFITS SPECIALIST [address] [facility] | leukemia (AML), M4 | | | | Malignancies at | [address] | (HCC)- primary | | | | Christian Barry | [place], [place] | induction failure | | | | [address] | [address] | (Primary Dx); S/P | | | | Debi Burger Mailcode: | [phone] | allogeneic bone | | | | [facility] | | marrow transplant | | | | [place], | | ([facility]) | | | | [place] [address] | | | | | | [phone] | | | +--------+ + + + [...] Rd | | | | | | [place], [place] | | | | | | [address] | | | | | | [phone] | | | | | | | | +--------+---------+ + + + documented as of this encounter Results CBC+DIFF,POC (09/14/2015 1:16 PM [...] MACARIO | | | | | | [place] | | | | | | [...] | [facility] | [address] | [place], [place] | | | [facility] POINT OF CARE | [address] | [address] | | | TESTS | | | [...] [facility] | [address] | [place], [place] | | | [facility] POINT OF CARE | [address] | [address] | | | TESTS | | | [...] | [facility] | [address] [facility] | [place] [address] | | | SERVICES, CORE | PARK [...] | + + + + + | [facility] | [address] | [place] [address] | | | SERVICES, INDRA | PARK [...]
--- OUTSIDE RECORDS SUMMARY | ~2019-05-17 | XMS | Encounter Summary ---
Demographics + + + | Address | [address] | | | [place] [address] | + + + | Home Phone [...] Providers + +------+ + | Care Patient Transportation Driver Name | Role | Phone | + +------+ + | Zayda Hinton | PCP | | + +------+ + Encounter Details +--------+ + + + + | Date | Type | Department | Care Team | Description | +--------+ + + + + | 12/01/ | Pharmacy | Specialty Pharmacy | | | | 2015 | Visit | Services [address] | | | | | | [address] | | | | | | [place], [place] | | | | | | [address] | | | | | | [phone] | | | +--------+ + + + [...] Rd | | | | | | [place], [place] | | | | | | [address] | | | | | | [phone] | | | | | | | | +--------+---------+ + + + documented as of this encounter Visit Diagnoses Not on filedocumented in this encounter"
--- OUTSIDE RECORDS SUMMARY | ~2019-05-17 | XMS | Encounter Summary ---
Demographics + + + | Address | [address] | | | [place] [address] | + + + | Home Phone [...] Team Providers + +------+ + | Care Fondant Machine Operator Name | Role | Phone [...] Description | +--------+--------+ + + + | 11/10/ | Refill | Center for | Yari Garcia MD | Refill Request | | 2016 | | Hematologic | [address] [facility] | | | | | Malignancies at | [address] | | | | | Christian Barry | [place], [place] | | | | | [address] | [address] | | | | | Debi [address] Mailcode: | [phone] | | | | | [facility] | | | | | | [place]a [place], | | | | | | [place] [address] | | | | | | [phone] | | | +--------+--------+ + + + [...] Rd | | | | | | [place] | | | | | | [address] | | | | | | [phone] | | | | | | | | +--------+---------+ + + + documented as of this encounter Visit Diagnoses Not on filedocumented in this encounter"
--- OUTSIDE RECORDS SUMMARY | ~2019-05-17 | XMS | Encounter Summary ---
Demographics + + + | Address | [address] | | | [place] [address] | + + + | Home Phone [...] Providers + +------+ + | Care Mechanical Equipment Test Engineer Name | Role | Phone | [...] | | | | | | [place], | | | | | | | [place] | | | | | | | [address] | | | | | | | Phone: | | | | | | | [phone] | | | | | | | Fax: | | | | | | | [phone] | +--------+--------+ + + + + Encounter Details +--------+---------+ + + + | Date | Type | Department | Care Team | Description | +--------+---------+ + + + | 06/28/ | Office | Center for | Aspen Cummins FNP | S/P allogeneic bone | | 2016 | Visit | Hematologic | [address] | marrow transplant | | | | Malignancies at | [address] | (HCC) (Primary Dx) | | | | [address] | [place], [place] | | | | | [address] | [address] | | | | | [address] Mailcode: | [phone] | | | | | [facility] [address] | | | | | | [place], | | | | | | [place] [address] | | | | | | [phone] | | | +--------+---------+ + + + [...] + + + | Blood Pressure | 134/84 | 06/28/2016 10:19 AM | | | | | PST | | + + + + + | Pulse | 66 | 06/28/2016 10:19 AM | | | | | PST | | + + + + + | Temperature | 36.3 C (97.3 F) | 06/28/2016 10:19 AM | | | | | PST | | + + + + + | Respiratory Rate | 16 | 06/28/2016 10:19 AM | | | | | PST | | + + + + + | Oxygen Saturation | 97% | 06/28/2016 10:19 AM | | | | | PST | | + + + + + | Inhaled Oxygen | - | - | | | Concentration | | | | + + + + + | Weight | 96.6 kg (213 lb) | 06/28/2016 10:19 AM | | | | | PST | | + + + + + | Height | - | - | | + + + + + | Body Mass Index | 27.05 | 01/25/2016 8:24 AM | | | | | PDT | | + + + + + documented in this encounter Patient Instructions Patient Instructions Aspen Cummins FNP - 06/28/2016 10:15 AM PST1. Decrease prednisone to 5 mg by mouth every other day 2. Continue xanax 1 mg by mouth three times daily. After the holidays, we'll talk about h ow to taper down. 3. Continue paxil 20 mg by mouth once daily 4. I'll talk with Kezia Stokes LCSW to see if there is someone we can connect you with to talk about transplant and post-transplant stuff 5. Stop beclomethasone 6. Return to clinic to follow up with Yari Garcia MD on , 07/13/16 or sooner as jan coe. documented in this encounter Progress Notes Aspen Cummins FNP - 06/28/2016 10:15 AM PST 06/28/2016 [facility] MD: Yari Garcia MD Primary Oncologist: Yari Garcia MD Diagnosis: AMML, primary refractory Transplant Date: 08/27/15 Donor: MM URD (DPB1 permissive antigen mismatch, male, [id number]) Identifying Data: Khurram Kelly is a 25 [...] his L ankle. He was evaluated at [facility] ED on 06/[address] angiogram [...] acute myelomonocytic leukemia. He was referred to [facility] for further evaluation and man agement of his newly dx'd AML. Pt was admitted to [facility] on 05/26/15. Peripheral blood [...] CD34, variable CD56, variable CD117, and dim DI898-wnkxi mickey; promonocyte immunophenotype (70% by flow): CD11b, [...] durin g taper. He is currently day +306 s/p transplant, s/p 6 cycles of azacitidine and returns to clinic today for scheduled follow-up. Interim History: Khurram was most recently evaluated in [facility] by me on 06/15/16. Feeling well today without c/o. No recurrent rash in the set ting of prednisone taper. No c/o oral or ocular irritation. Notes anxiety is well controlled with xanax 1 mg po TID. Feels paxil has helped a bit, willing to continue for now. Has no t yet set up evaluation at [facility]. Would like to wait until after the holidays. Also wo uld like to connect with someone of similar age who has gone through transplant. Review of Systems Constitutional: Negative for chills, fever and malaise/fatigue. HENT: Negative for headaches, congestion and sore throat. Respiratory: Negative for cough and shortness of breath. Cardiovascular: Negative for chest pain and leg swelling. Gastrointestinal: Negative for abdominal pain, diarrhea, nausea and vomiting. Genitourinary: Negative for dysuria. Musculoskeletal: Positive for joint pain (L hip intermittently). Negative for falls and maureen lgias. Skin: Negative for rash. Neurological: Negative for [...] capsule by mouth before babak akfast. PARoxetine 20 mg oral tablet 20 mg by mouth once daily predniSONE 5 mg oral tablet Take 5 mg (one tablet) by mouth every other day tacrolimus 0.5 mg oral capsule Take 0.5 mg (one capsule) by mouth twice daily [START ON 06/29/2016] trimethoprim-sulfamethoxazole 160-800 mg oral tablet Take 1 table t by mouth twice daily (every Sunday and ). No current facility-administered medications for this visit. Allergies Allergen Reactions Chlorhexidine Towelette Rash PAVAN cloths - ok to use Chloraprep for dresssing change per pt. Filed Vitals: 06/28/2016 10:19 AM Weight: 96.6 kg (213 lb) BP: 134/84 Pulse: 66 Temp: 36.3 C (97.3 F) TempSrc: Oral Resp: 16 SpO2: 97% PainSc: 0 - Zero BMI: 27.05 kg/(m^2) Physical Exam Constitutional: He is well-developed, well-nourished, and in no distress. HENT: Head: Normocephalic and atraumatic. Mouth/Throat: Oropharynx is clear and moist. No oropharyngeal exudate. Eyes: Conjunctivae are normal. Pupils are equal, round, and reactive to light. Cardiovascular: Normal rate, regular rhythm and intact distal pulses. No murmur heard. [...] reviewed. Lab Results Component Value Date WBC 5.8 06/28/2016 HB 13.8 06/28/2016 HCT 41.2 06/28/2016 PLT 195 06/28/2016 MCV 98.1 06/28/2016 RDW 44.9 05/01/2016 Lab Results Component Value Date BICARB 23 06/28/2016 TBILI 0.4 06/28/2016 CA 9.4 06/28/2016 CL 103 06/28/2016 CR 0.8 06/28/2016 GLU 108 (H) 06/28/2016 AP 125 06/28/2016 TP 6.9 06/28/2016 BUN 11 06/28/2016 ALB 3.9 06/28/2016 AST 58 (H) 06/28/2016 NA 138 06/28/2016 K 5.1 (H) 06/28/2016 ALT 112 (H) 06/28/2016 Assessment/Plan: 1. 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 CBC remains WNL with no evidence of disease by peripheral smear. His mos t recent marrow studies completed 04/19/16 showed a patchy hypocellular (less than 5% to 50% ) bone marrow with trilineage hematopoiesis and < 3% myeloid blasts. Karyotype 46,XY[20]. VN TR showed no detectable host cells. 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 Continues low dose tacrolimus, budesonide . No s/s active GvHD noted at this time. --> decrease prednisone to 5 mg po every other day --> [...] PCV13 #2 and repeat inactivated influenza vaccine today --> additional immunizations due in conjunction with his one year anniversary 4. Fluid, Electrolyte and Nutrition: Appetite is good, eating well without c/o N/V/D. Adequ ate po fluid intakie. His electrolytes are reviewed and are within acceptable limits. --> continue a well balanced diet --> maintain hydration 5. Cardiovascular: Pretransplant TTE completed 08/10/15 showed a LVEF of 55-60%. CNI-induced HTN, well controlled with current meds.. --> continue amlodipine as prescribed --> anticipate HTN will improve with tacrolimus [...] a peer support group or support at [facility], then felt this was no longer necessary. In 05/24, he noted an increase in his anxiety, increased xanax to ~4 mg po daily, then ran out of medication and suffered withdrawal sympt oms. Paxil added 06/12/16, feels it has helped a bit. Feels his anxiety is well controlled w ith xanax 1 mg po TID and paxil. He is now amenable to [facility] but would like to wait u ntil after the holidays to set up an evaluation. He would also like to connect with peer sup port. --> continue xanax 1 mg po TID, paxil 20 mg po daily --> requested identification of peer support person from Kezia Stokes LCSW --> encouraged pt to contact [facility] after the holidays to schedule evaluation and ongo ing support 7. Follow up --> RTC to f/u with Yari Garcia MD on , 07/13/16, sooner [facility] [place] [address] [facility] Mailcode: [place] [address] documented in this enc [...] Rd | | | | | | [place], [place] | | | | | | [address] | | | | | | [phone] | | | | | | | | +--------+---------+ + + + documented as of this encounter Visit Diagnoses + + | Diagnosis | + + | 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
--- OUTSIDE RECORDS SUMMARY | ~2019-05-17 | XMS | Encounter Summary ---
Demographics + + + | Address | [address] | | | [place] [address] | + + + | Home Phone [...] Team Providers + +------+ + | Care Deli Cook Name | Role | Phone | + +------+ + | Zayda Hinton | PCP | | + +------+ + Encounter Details +--------+ + + + + | Date | Type | Department | Care Team | Description | +--------+ + + + + | 12/26/ | Pharmacy | Specialty Pharmacy | | | | 2015 | Visit | Services [address] | | | | | | [address] | | | | | | [place], [place] | | | | | | [address] | | | | | | [phone] | | | +--------+ + + + [...] Rd | | | | | | [place], [place] | | | | | | [address] | | | | | | [phone] | | | | | | | | +--------+---------+ + + + documented as of this encounter Visit Diagnoses Not on filedocumented in this encounter"
--- OUTSIDE RECORDS SUMMARY | ~2019-05-17 | XMS | Encounter Summary ---
Demographics + + + | Address | [address] | | | [place] [address] | + + + | Home Phone [...] Team Providers + +------+ + | Care Pre Owned Sales Consultant Name | Role | Phone | + +------+ + | Zayda Hinton | PCP | | + +------+ + Encounter Details +--------+ + + + + | Date | Type | Department | Care Team | Description | +--------+ + + + + | 12/16/ | Pharmacy | Specialty Pharmacy | | | | 2015 | Visit | Services [address] | | | | | | [address] | | | | | | [place], [place] | | | | | | [address] | | | | | | [phone] | | | +--------+ + + + [...] | Visit | Malignancy | [address] [facility] | | | | | | [address] | | | | | | [place], [place] | | | | | | [address] | | | | | | [phone] | | | | | | | | +--------+---------+ + + + documented as of this encounter Visit Diagnoses Not on filedocumented in this encounter"
--- OUTSIDE RECORDS SUMMARY | ~2019-05-17 | XMS | Encounter Summary ---
Demographics + + + | Address | [address] | | | [place] [address] | + + + | Home Phone [...] Team Providers + +------+ + | Care As400 Operator Name | Role | Phone | [...] | | | | | | [place] [address] | | | | | | [phone] | | | +--------+ + + + [...] Rd | | | | | | [place], [place] | | | | | | [address] | | | | | | [phone] | | | | | | | [...] [facility] | [address] | [place], [place] | | | RUTHIE CARTER OF CARE | [facility] | [address] | | | TESTS | | | [...] S[place] | [address] | [place], [place] | | | [facility] POINT OF CARE | [address] | [address] | | | TESTS | | | [...] | Test performed by immunoassay using [employer] Shaver Mechanic i2000. . | [facility] | | Samples [...] + + + + + | [facility] | [address] | [place] [address] | | | SPECIAL KOLE | WALLY [...] + + + + + | [facility] | [address] | [place] [address] | | | SERVICES, CORE | PARK [...] [facility] | [address] | [place] [address] | | | SERVICES, INDRA | WALLY [...] [facility] | [address] | [place] [address] | | | SERVICES, CORE | PARK [...] + + + + + | [facility] | [address] | [place] [address] | | | SERVICES, CORE | WALLY [...] [facility] | [address] | [place] [address] | | | SERVICES, CORE | WALLY [...] | + + + + + | [employer] | [address] | [place] [address] | | | SERVICES, CORE | WALLY [...]
--- OUTSIDE RECORDS SUMMARY | ~2019-05-17 | XMS | Encounter Summary ---
Demographics + + + | Address | [address] | | | [place] [address] | + + + | Home Phone [...] Providers + +------+ + | Care Lug Breaker And Wire Puller Name | Role | Phone | + +------+ + | Zayda Hinton | PCP | | + +------+ + Encounter Details +--------+ + + + + | Date | Type | Department | Care Team | Description | +--------+ + + + + | 07/21/ | Pharmacy | Specialty Pharmacy | | | | 2015 | Visit | Services [address] | | | | | | [address] | | | | | | [place], [place] | | | | | | [address] | | | | | | [phone] | | | +--------+ + + + [...] [place] | | | | | | [address] | | | | | | [phone] | | | | | | | | +--------+---------+ + + + documented as of this encounter Visit Diagnoses Not on filedocumented in this encounter"
--- OUTSIDE RECORDS SUMMARY | ~2019-05-17 | XMS | Encounter Summary ---
Demographics + + + | Address | [address] | | | [place] [address] | + + + | Home Phone [...] Team Providers + +------+ + | Care Infusion Pharmacist Name | Role | Phone | + +------+ + | Zayda Hinton | PCP | | + +------+ + Encounter Details +--------+ + + + + | Date | Type | Department | Care Team | Description | +--------+ + + + + | 07/23/ | Pharmacy | Specialty Pharmacy | | | | 2015 | Visit | Services [address] | | | | | | [address] | | | | | | [place], [place] | | | | | | [address] | | | | | | [phone] | | | +--------+ + + + [...] [place] | | | | | | [address] | | | | | | [phone] | | | | | | | | +--------+---------+ + + + documented as of this encounter Visit Diagnoses Not on filedocumented in this encounter"
--- OUTSIDE RECORDS SUMMARY | ~2019-05-17 | XMS | Encounter Summary ---
Demographics + + + | Address | [address] | | | [place] [address] | + + + | Home Phone [...] Team Providers + +------+ + | Care Production Bow Maker Name | Role | Phone | [...] | 2017 | | Hematologic | [address] [facility] | vomiting; Other | | | | Malignancies at | [facility] | (loose stools) | | | | [facility] | [place], [place] | | | | | [address] [facility] | [address] | | | | | [facility] Mailcode: | [phone] | | | | | [facility] [address] | | | | | | [place], | | | | | | [place] [address] | | | | | | [phone] | | | +--------+ + + + [...] 2019 | Visit | Malignancy | [address] [facility] | | | | | | [address] | | | | | | [place] | | | | | | [address] | | | | | | [phone] | | | | | | | | +--------+---------+ + + + documented as of this encounter Visit Diagnoses Not on filedocumented in this encounter"
--- OUTSIDE RECORDS SUMMARY | ~2019-05-17 | XMS | Encounter Summary ---
Demographics + + + | Address | [address] | | | [place] [address] | + + + | Home Phone [...] Team Providers + +------+ + | Care Supervisor Garage Name | Role | Phone | + [...] + + + + | 05/15/ | Diagnostic | Center for | | [...] Christian | | | | | | [facility] | | | | | | [place] [address] | | | | | | [phone] | | | +--------+ + + + [...] encounter Progress Notes Alicia Stoner MA - 05/15/2016 10:02 AM PSTLeft ac accessed with a 23 gauge butterfly needle . Good Blood return [...] Rd | | | | | | [place], [place] | | | | | | [address] | | | | | | [phone] | | | | | | | | +--------+---------+ + + + documented as of this encounter Procedures + +--------+ + + + | Procedure Name | Priori | Date/Time | Associated Diagnosis | Comments | | | ty | | | | + +--------+ + + + | BMP + MAG, POC CHM | Routin | 05/15/2016 | S/P allogeneic | Results for this | | | e | 10:08 AM | bone marrow | procedure are in the | | | | PST | transplant (HCC) | results section. | + +--------+ + + + | CBC+DIFF,POC | Routin | 05/15/2016 | S/P allogeneic | Results for this | | | e | 9:47 AM | bone marrow | procedure are in the | | | | PST | transplant ([facility]) | results section. | + +--------+ + + + | CMV PCR | Routin | 05/15/2016 | S/P allogeneic | Results for this | | QUANTITATION, PLASMA | e | 9:25 AM | bone marrow | procedure are in the | | | | PST | transplant ([facility]) | results section. | + +--------+ + + + | LIVER SET | Urgent | 05/15/2016 | S/P allogeneic | Results for this | | (AST,ALT,BILI | | 9:25 AM | bone marrow | procedure are in the | | TOTAL,BILI | | PST | transplant ([facility]) | results section. | | DIRECT,ALK | | | | | | PHOS,ALB,PROT TOTAL) | | | | | + +--------+ + + + documented in this encounter Results BMP + MAG, POC CHM (05/15/2016 10:08 AM PST) + +---------+ + + + [...] +---------+ + + + | GLUCOSE, | 96 | 60 - 99 mg/dL | [facility] [...] + + + | LDH, POC | 362 (H) | 0 - 206 U/L | [...] [facility] | [address] | [place], [place] | | | [facility] C[facility] | [facility] | [address] | | | TESTS | | | | + + + + + CBC+PHIL GRIJALVA (05/15/2016 9:47 AM PST) + + + + + [...] + + + | RBC POC | 4.40 (L) | 4.50 - 6.00 | [facility] - | | | | | 10*6/uL | [facility] | | | | | | [facility] | | | | | | OF CARE | | | | | | TESTS | | + + + + + + | HGB POC | 14.9 | 13.5 - 17.5 | [facility] - | | | | | g/dL | [facility] | | | | | | [facility] | | | | | | OF CARE | | | | | | TESTS | | + + + + + + | HCT POC | 43.7 | 41.0 - 53.0 % | [facility] [...] + + + | MCH POC | 33.9 (H) | 28.5 - 32.3 pg | [...] + + + | PLT POC | 190 | 150 - 400 | [facility] - [...] + + + + | NEUTROPHIL% | 49.7 (L) | 50.0 - 70.0 % | [facility] - | | | POC | | | [facility] | | | | | | [facility] | | | | | | OF CARE | | | | | | TESTS | | + + + + + + | LYMPH% POC | 35.2 | 18 - 42 % | [facility] [...] + + | EOS %, POC | 3.8 (H) | 1.0 - 3.0 % | [...] + + + + | NEUTROPHIL# | 3.6 | 1.8 - 7.7 | [facility] - | | | POC | | 10*3/uL | [facility] | | | | | | [facility] | | | | | | OF CARE | | | | | | TESTS | | + + + + + + | LYMPH# POC | 2.6 | 1.0 - 4.8 | [facility] - [...] YESSICA S[facility] | [address] | [place], [place] | | | [facility] CARE | [address] | [address] | | | TESTS | | | | + + + + + LIVER SET (AST,ALT,BILI TOTAL,BILI DIRECT,ALK PHOS,ALB,PROT TOTAL) (05/15/2016 9:25 AM PST ) + +---------+ + + [...] + + + | ALK PHOS | 123 | 53 - 128 U/L | [facility] | | | | | | LABORATORY | | | | | | SERVICES, | | | | | | CORE | | + +---------+ + + + | AST(SGOT) | 75 (H) | <=41 U/L | [facility] | | | | | | LABORATORY | | | | | | SERVICES, | | | | | | CORE | | + +---------+ + + + | ALT (SGPT) | 166 (H) | <=60 U/L | [facility] | | | | | | LABORATORY | | | | | | SERVICES, | | | | | | CORE | | + +---------+ + + + | TOTAL | 7.7 | 6.4 - 8.2 g/dL | [facility] [...] [place] | [address] | [place] [address] | | | SERVICES, CORE | [address] | | | + + + + + CMV PCR QUANTITATION, PLASMA (05/15/2016 9:25 AM PST) + + + + + [...] | | | characteristics determined by the [facility] | | | [facility] Diagnostic [facility]. It has not been cleared or approved by | | | the Food and Drug Administration. FDA approval is not required for | | | clinical use of this test, and therefore validation was done as | | | required under the requirements of the Clinical Laboratory Improvement | | | Act of 1988. The [facility] | | | Diagnostic Center is a fully licensed and/or accredited clinical | | | laboratory under CLIA, [facility], and the [facility]. | | + + + + + + + + | Performing | Address | City/State/Zipcode | Phone Number | | Organization | | | | + + + + + | [facility] | [address] | [place] [address] | | | DIAGNOSTIC | [address] [...]
--- OUTSIDE RECORDS SUMMARY | ~2019-05-17 | XMS | Encounter Summary ---
Demographics + + + | Address | [address] | | | [place] [address] | + + + | Home Phone [...] Providers + +------+ + | Care Freight Team Associate Name | Role | Phone | [...] | Malignancies at [facility] | [place], | groin area) | | | | [address] | [place] [address] | | | | | [place] Mailcode: | [phone] | | | | | [id number] | | | | | | [place], | | | | | | [place] [address] | | | | | | [phone] | | | +--------+ + + + [...] [place] | | | | | | [address] | | | | | | [phone] | | | | | | | | +--------+---------+ + + + documented as of this encounter Visit Diagnoses Not on filedocumented in this encounter"
--- OUTSIDE RECORDS SUMMARY | ~2019-05-17 | XMS | Encounter Summary ---
Demographics + + + | Address | [address] | | | [place] [address] | + + + | Home Phone [...] Team Providers + +------+ + | Care Sampler Ovens Name | Role | Phone | + [...] screen) | | | | Malignancies at [facility] | | | | | | [address] | | | | | | Mailcode: [place] | | | | | | for Health and | | | | | | [facility], [facility] [address] | | | | | | [place], [place] | | | | | | [address] | | | | | | [phone] | | | +--------+ + + + [...] [place] | | | | | | [address] | | | | | | [phone] | | | | | | | | +--------+---------+ + + + documented as of this encounter Visit Diagnoses Not on filedocumented in this encounter"
--- OUTSIDE RECORDS SUMMARY | ~2019-05-17 | XMS | Encounter Summary ---
Demographics + + + | Address | [address] | | | [place] [address] | + + + | Home Phone [...] Providers + +------+ + | Care Supervisor Blood Name | Role | Phone | + [...] | +--------+ + + + + | 08/20/ | Diagnostic | Center for | | Lab Draw | | 2018 | Visit | Hematologic | | | | | | Malignancies at | | | | | | [facility] | | | | | | [address] | | | | | | [place] Mailcode: | | | | | | [address] | | | | | | [place], | | | | | | [place] [address] | | | | | | [phone] | | | +--------+ + + + [...] encounter Progress Notes Joshua Xie MA - 08/20/2017 1:15 PM PSTVenipuncture performed in clinic, blood sample obtained from Right antecubital site documented in this en counter [...] Rd | | | | | | [place], [place] | | | | | | [address] | | | | | | [phone] | | | | | | | | +--------+---------+ + + + documented as of this encounter Procedures + +--------+ + + + | Procedure Name | Priori | Date/Time | Associated Diagnosis | Comments | | | ty | | | | + +--------+ + + + | CMP, POC (BMP+LFT) | Routin | 08/20/2017 | Acute | Results for this | | | e | 1:40 PM | myelomonocytic | procedure are in [...] + + | CBC+DIFF,POC | Routin | 08/20/2017 | Acute | Results for this | | | e | 1:37 PM | myelomonocytic | procedure are in [...] LIPID SET (TRIG, T | Routin | 08/20/2017 | Acute | Results for this | | CHOL, HDL, CALC LDL) | e | 1:21 PM | myelomonocytic | procedure are in [...] in this encounter Results CMP, POC (BMP+LFT) (08/20/2017 1:40 PM PST) + +---------+ + + + [...] + + | GLUCOSE, | 94 | 70 - 99 mg/dL | [facility] [...] + + + | ALK PHOS, | 86 | 41 - 99 U/L | [facility] - | | | CMP POC | | | [facility] | | | | | | [facility]TER | | | | | | OF CARE | | | | | | TESTS | | + +---------+ + + + | ALT, CMP | 107 (H) | 0 - 60 U/L | [facility] - | | | POC | | | [facility] | | | | | | [facility] | | | | | | OF CARE | | | | | | TESTS | | + +---------+ + + + | AST, CMP | 56 (H) | 0 - 41 U/L | [...] S[facility] | [address] | [place], [place] | | | [facility]IE CARTER OF CARE | [address] | [address] | | | TESTS | | | | + + + + + CBC+DIFF,POC (08/20/2017 1:37 PM PST) + + + + + + | Component | Value | Ref Range | Performed | Pathologist | | | | | At | Signature | + + + + + + | WBC POC | 8.7 | 3.5 - 10.8 | [facility] - | | | | | 10*3/uL | [facility] | | | | | | [facility] | | | | | | OF CARE | | | | | | TESTS | | + + + + + + | RBC POC | 4.46 (L) | 4.50 - 6.00 [...] + + + | HCT POC | 42.3 | 41.0 - 53.0 % | [facility] - | | | | | | [facility] | | | | | | [facility] | | | | | | OF CARE | | | | | | TESTS | | + + + + + + | MCV POC | 94.8 | 80.0 - 96.0 fL | [facility] [...] + + + | MCHC POC | 33.3 | 33.0 - 35.5 | [facility] - | | | | | g/dL | [facility] | | | | | | [facility] | | | | | | OF CARE | | | | | | TESTS | | + + + + + + | RDW SD, POC | 45.3 | 35.1 - 46.3 fL | [facility] - | | | | | | [facility] | | | | | | [facility] | | | | | | OF CARE | | | | | | TESTS | | + + + + + + | PLT POC | 326 | 150 - 400 | [facility] - [...] + + + + | NEUTROPHIL% | 76.7 (H) | 50.0 - 70.0 % | [facility] - | | | POC | | | [facility] | | | | | | [facility]TER | | | | | | OF CARE | | | | | | TESTS | | + + + + + + | LYMPH% POC | 11.7 (L) | 18 - 42 % | [...] + + + | CBC | Imm GRan. | | [facility] - | | | [...] + | [facility] | [address] | [place], [place] | | | [facility] | [address] | [address] | | | TESTS | | | | + + + + + LIPID SET (TRIG, T CHOL, HDL, CALC LDL) (08/20/2017 1:21 PM PST) + +---------+ + + + | Component | Value | Ref Range | Performed | Pathologist | | | | | At | Signature | + +---------+ + + + | CHOLESTEROL | 235 (H) | <200 mg/dL | [facility] | | | (LAB) | | | LABORATORY | | | | | | SERVICES, | | | | | | CORE | | + +---------+ + + + | TRIGLYCERID | 118 | <150 mg/dL | [facility] | | | ES | | | LABORATORY | | | | | | SERVICES, | | | | | | CORE | | + +---------+ + + + | HDL | 59 | >40 mg/dL | [facility] | | [...] +---------+ + + + | LDL | 152 (H) | <100 mg/dL | [facility] | | | CHOLESTEROL | | | LABORATORY | | | , | | | SERVICES, | | | CALCULATED | | | CORE | | + +---------+ + + + | VLDL | 24 | <31 mg/dL | [facility] | | | CHOLESTEROL | | | LABORATORY | | | , | | | SERVICES, | | | CALCULATED | | | CORE | | + +---------+ + + + | NON-HDL | 176 (H) | <130 mg/dL | [facility] | [...] | + + + + + | [facility] | [address] | [place] [address] | | | SERVICES, INDRA | [address] [...]
--- OUTSIDE RECORDS SUMMARY | ~2019-05-17 | XMS | Encounter Summary ---
Demographics + + + | Address | [address] | | | [place] [address] | + + + | Home Phone [...] Team Providers + +------+ + | Care Balloon Seller Name | Role | Phone | + +------+ + | No Pcp Per Patient | PCP | Unavailable | + +------+ + Encounter Details +--------+ + + + + | Date | Type | Department | Care Team | Description | +--------+ + + + + | 10/02/ | Test Preparation Tutor | Orthopaedics at | Lobo Jeffers, | Avascular necrosis | | 2017 | | [facility] [address] | [address] | of bone of left hip | | | | [address] | [address] | ([facility]) (Primary Dx); | | | | Mailcode: [id number] | [place], [place] | Status post total | | | | [facility] | [address] | replacement of left | | | | [place], [place] | [phone] | hip | | | | [address] | | | | | | [phone] | | | +--------+ + + + [...] Rd | | | | | | [place], [place] | | | | | | [address] | | | | | | [phone] | | | | | | | [...]
--- OUTSIDE RECORDS SUMMARY | ~2019-05-17 | XMS | Encounter Summary ---
Demographics + + + | Address | [address] | | | [place] [address] | + + + | Home Phone [...] Team Providers + +------+ + | Care Clerical Supervisor Name | Role | Phone | + +------+ + | Pending Pcp Addition | PCP | Unavailable | + +------+ + Reason for Visit + + + | Reason | Comments | + + + | Lab Draw | PICC | + + + | Chemotherapy | Decitabine | + + + Chemotherapy (Routine) +--------+--------+ [...] [address] | | | | | [place] | | [address] | | | | | DECITABINE | | [address] [place], | | | | | INJECTION, 1 | | [place] | | | | | [place] | | [address] | | | | | CHM,IV | | Phone: | | | | | INFSN,1 HR | | [phone] | | | | | [place] CHM,IV | | Fax: | | | | | INFSN,ADDL | | [phone] | | | | | [place] | | | +--------+--------+ + + + + Encounter Details +--------+ + + + + | Date | Type | Department | Care Team | Description | +--------+ + + + + | 07/21/ | Clinical | Center for | | Lab Draw (PICC); | | 2015 | Support | Hematologic | | Chemotherapy | | | Staff | Malignancies at [facility] | | (Decitabine) | | | | [address] | | | | | | [place] Mailcode: | | | | | | [address] | | | | | | [place], | | | | | | [place] [address] | | | | | | [phone] | | | +--------+ + + + [...] + + + | Blood Pressure | 122/78 | 07/21/2015 3:28 PM | | | | | PST | | + + + + + | Pulse | 69 | 07/21/2015 3:28 PM | | | | | PST | | + + + + + | Temperature | 36.8 C (98.3 F) | 07/21/2015 3:28 PM | | | | | PST | | + + + + + | Respiratory Rate | 16 | 07/21/2015 3:28 PM | | | | | PST | | + + + + + | Oxygen Saturation | 100% | 07/21/2015 3:28 PM | | | | | PST | | + + + + + | Inhaled Oxygen | - | - | | | Concentration | | | | + + + + + | Weight | 82.8 kg (182 lb 8.7 | 07/21/2015 3:28 PM | | | | oz) | PST | | + + + + + | Height | - | - | | + + + + + | Body Mass Index | 23.12 | 07/15/2015 1:57 PM | | | | | PST | | + + + + + documented in this encounter Progress Notes Samantha Blackwood RN - 07/21/2015 5:42 PM PSTInfusion completed without complication. Patient t olerated well. PICC line flushed with saline per protocol and excellent blood return noted. Patient was d/c'd ambulatory with his .Electronically signed by Samantha Blackwood RN at 2015 5:43 PM PSTSeble Camilo RN - 07/21/2015 4:11 PM PSTPatient in clinic for Day 3, Cycle 1 chemotherapy with Decitabine. Denies pain, no fevers, no nausea or vomiting, no diarrhea . He is eating okay and drinking at least 2 L of fluid a day. Power PICC accessed per protocol. Good blood return noted. Appropriate waste discarded. Labs drawn and sent. Power PICC pulse flushed with 20 mL NS. Chemotherapy was checked by 2 RNs. Decitabine 42 mg was infused per chemotherapy protocol and completed without adverse event. Positive blood return noted pre and post infusion. Fo r infusion details, see MAR. Lab results reviewed. No electrolyte replacement needed today. Cbc results showed wbc of 1.09, hematocrit 22.8, platelets 20. No blood products needed today. irza Carlin RN - 07/21/2015 3:50 PM PST. documented in this encoun ter Plan of [...] Rd | | | | | | [place], [place] | | | | | | [address] | | | | | | [phone] | | | | | | | | +--------+---------+ + + + documented as of this encounter Procedures + +--------+ + + + | Procedure Name | Priori | Date/Time | Associated Diagnosis | Comments | | | ty | | | | + +--------+ + + + | CBC AND AUTO DIFF | Urgent | 07/21/2015 | Acute myeloid | Results for this | | | | 3:43 PM | leukemia (AML), M4 | procedure are in the | | | | PST | ([facility]) | results section. | + +--------+ + + + | MANUAL DIFFERENTIAL | Routin | 07/21/2015 | Acute myeloid | Results for this | | | e | 3:43 PM | leukemia (AML), M4 | procedure are in the | | | | PST | ([facility]) | results section. | + +--------+ + + + | CBC, WITH | Urgent | 07/21/2015 | Acute myeloid | Results for this | | DIFFERENTIAL | | 3:43 PM | leukemia (AML), M4 | procedure are in the | | | | PST | ([facility]) | results section. | + +--------+ + + + | CMP, POC (BMP+LFT) | Routin | 07/21/2015 | Acute myeloid | Results for this | | | e | 3:38 PM | leukemia (AML), M4 | procedure are in the | | | | PST | ([facility]) | results section. | + +--------+ + + + | ANTIBODY SCREEN | Routin | 07/21/2015 | Acute myeloid | Results for this | | | e | 3:19 PM | leukemia (AML), M4 | procedure are in the | | | | PST | ([facility]) | results section. | + +--------+ + + + | TYPE AND SCREEN | Routin | 07/21/2015 | Acute myeloid | Results for this | | | e | 3:19 PM | leukemia (AML), M4 | procedure are in the | | | | PST | ([facility]) | results section. | + +--------+ + + + | ABO & RH TYPE | Routin | 07/21/2015 | Acute myeloid | Results for this | | | e | 3:19 PM | leukemia (AML), M4 | procedure are in the | | | | PST | ([facility]) | results section. | + +--------+ + + + | LDH TOTAL, PLASMA | Routin | 07/21/2015 | Acute myeloid | Results for this | | | e | 3:19 PM | leukemia (AML), M4 | procedure are in the | | | | PST | ([facility]) | results section. | + +--------+ + + + documented in this encounter Results MANUAL DIFFERENTIAL (07/21/2015 3:43 PM PST) + + + + + + | Component | Value | Ref Range | Performed | Pathologist | | | | | At | Signature | + + + + + + | NEUTROPHIL | 13.0 (L) | 50.0 - 70.0 % | [facility] | | | % | | | LABORATORY | | | | | | SERVICES, | | | | | | CORE | | + + + + + + | LYMPHOCYTE | 40.3 | 18.0 - 42.0 % | [facility] | | | % | | | LABORATORY | | | | | | SERVICES, | | | | | | CORE | | + + + + + + | MONOCYTE % | 41.5 (H) | 3.5 - 9.0 % | [...] + + + + | IG% | 5.2 (H)Comment: Immature | 0.0 - 0.6 % [...] + + + + | NEUTROPHIL | 0.14 (L) | 1.80 - 7.70 | [facility] | | | # | | K/cu mm | LABORATORY | | | | | | SERVICES, | | | | | | CORE | | + + + + + + | LYMPHOCYTE | 0.44 (L) | 1.00 - 4.80 | [facility] | | | # | | K/cu mm | LABORATORY | | | | | | SERVICES, | | | | | | CORE | | + + + + + + | MONOCYTE # | 0.45 | 0.10 - 0.90 | [facility] | [...] | [facility] | [address] | [place] [address] | | | SERVICES, CORE | [address] | | | + + + + + CBC AND AUTO DIFF (07/21/2015 3:43 PM PST) + + + + + + | Component | Value | Ref Range | Performed | Pathologist | | | | | At | Signature | + + + + + + | WHITE CELL | 1.09 (L) | 4.40 - 11.00 | [facility] [...] + + + + | HEMOGLOBIN | 8.1 (L) | 13.5 - 17.5 | [facility] | | | | | g/dL | LABORATORY | | | | | | SERVICES, | | | | | | CORE | | + + + + + + | HEMATOCRIT | 22.8 (L) | 41.0 - 53.0 % | [facility] | | | | | | LABORATORY | | | | | | SERVICES, | | | | | | CORE | | + + + + + + | MCV | 79.7 (L) | 80.0 - 96.0 fL | [...] + + + + | PLATELET | 20 (L) | 150 - 400 K/cu | [...] [facility] | [address] | [place] [address] | | | SERVICES, CORE | [address] | | | + + + + + CMP METABOL,POC (07/21/2015 3:38 PM PST) + +---------+ + + + | Component | Value | Ref Range | Performed | Pathologist | | | | | At | Signature | + +---------+ + + + | SODIUM, POC | 139 | 134 - 143 | [facility] - | | | | | mmol/L | [facility] | | | | | | [facility]IE CARTER | | | | | | OF CARE | | | | | | TESTS | | + +---------+ + + + | POTASSIUM, | 4.6 | 3.4 - 5.0 | [facility] - | | | POC [...] +---------+ + + + | CALCIUM | 10.0 | 8.6 - 10.2 | [facility] - [...] [facility] | [address] | [place], [place] | | | [facility] CARE | [address] | [address] | | | TESTS | | | | + + + + + ANTIBODY SCREEN (07/21/2015 3:19 PM PST) + + + + [...] [facility] | [address] | [place] [address] | | | SERVICES, | [address] | | | | TRANSFUSION MEDICINE | | | | + + + + + ABO & RH TYPE (07/21/2015 3:19 PM PST) + + + + [...] | + + + + + | [facility] | [address] | [place] [address] | | | SERVICES, | [address] | | | | TRANSFUSION MEDICINE | | | | + + + + + LDH TOTAL, PLASMA (07/21/2015 3:19 PM PST) + +---------+ + + + [...] [facility] | [address] | [place] [address] | | | SERVICES, CORE | [address] [...] 42 mg in | New Bag | 07/21/19 | 42 mg | 258.4 | PICC | | NaCl (PF) IV 42 mg (20 mg/m2 | | 16 4:25 | | mL/hr | | | 2.1 m2 Treatment plan recorded | | PM PST | | | | | BSA), intravenous, Administer | | | | | | | over 1 Hours, ONCE, 1 dose, Wed | | | | | | | 07/21/15 at 1545, HIGH RISK | | | | | | | MEDICATION-CHEMOTHERAPY , | | | | | | + +---------+ +-------+--------+------+ +---+---+ | | | +---+---+ + +-------+ +------+---+---+ | ondansetron (ZOFRAN) tablet 8 | Given | 07/21/19 | 8 mg | | | | mg 8 mg, oral, ONCE, 1 dose, Sun | | 16 3:45 | | | | | 07/21/15 at 1545 | | PM PST | | | | + +-------+ +------+---+---+ +---+---+ | | | +---+---+ documented in this encounter"
--- OUTSIDE RECORDS SUMMARY | ~2019-05-17 | XMS | Encounter Summary ---
Demographics + + + | Address | [address] | | | [place] [address] | + + + | Home Phone [...] Team Providers + +------+ + | Care Equip Maint Eng Name | Role | Phone | + [...] TOTAL HIP | | 2017 | | [facility] | MD [address] | ARTHROPLASTY | | | | Admitting Desk | [facility] | | | | | Located on the 9 | [place], [place] | | | | | floor [address] | [address] | | | | | [facility] | [phone] | | | | | [place], [place] | | | | | | [address] | | | +--------+---------+ + + + [...] Paul NP - 09/08/2016 12:15 PM PST [facility] DEPARTMENT OF ORTHOPAEDICS & REHABILITATION INPATIENT HOSPITAL DISCHARGE SUMMARY & INTERDISCIPLINARY INSTRUCTIONS Patient: Khurram Kelly CSN: [id number] Admission Date: 09/07/2016 Discharge Date: 09/08/2016 Attending Physician: Lobo Jeffers MD PCP: No Pcp Per PATIENT Service: [facility] Orthopaedics & Rehabilitation Diagnoses Principal Final Diagnosis: 1.Avascular necrosis, left femoral head. Additional Diagnoses: History of : Acute myeloid leukemia (AML), M4 (HCC)- primary induction failure [facility] RESEARCH PROTOCOL PATIENT (RESPRO) Electrolyte abnormality [...] started on aspirin a nd SCDs and RALU hose were also used. The patient made appropriate gains toward activity an d functional goals while an inpatient, working daily with physical therapy. [facility] the patient tolerated oral intake sufficient to maintain nutrition and hydrati on. The surgical wound remained clean, dry, and intact without signs concerning for infectio n. The patient was felt appropriate for discharge to home, and the patient and/or family ia mbers agree with this course of action. [...] suspect your wound is infected. Call [facility] Orthopedics first at [phone]. Activity Weight bear as tolerated on both lower extremities. Restrictions: Posterior hip precautions on operative side (no hip flexion >90 degrees, no c rossing your legs, no turning your foot towards the middle of the body (internal rotation). Destination: Destination: Home Condition on Discharge Stable Follow-Up Appointments ORTHOPEDICS OUTPATIENT CLINIC: Future Appointments Provider Department Dept Phone Center 09/11/2016 8:30 AM [facility] Center for Hematologic Malignancies at [facility] [phone] Center for H 09/11/2016 9:25 AM Yari Garcia; [facility] SUPPORT Center for Hematologic Malignancies at [facility] [phone] Center for H 09/20/2016 10:45 AM Janette Das Orthopaedics at [facility] [phone] Orthopedics 10/18/2016 10:20 AM Lobo Jeffers Orthopaedics at [facility] [phone] Orthopedics Follow up in 2 weeks (or as previously scheduled). Call [phone] to confirm or schedule this appointment. PCP: [...] mg oral tablet Comments: Reason for Stopping: [facility] Orthopaedic Service Pain Policy At the [...] administration instructions. - Call Orthopedic Clinic at [phone] if any persistent, localized swelling that does [...] and ask for the orthopaedic surgery resident sewing machines salesperson. Additional Post-Op Instructions / What to Expect [...] take [facility], it has been our pleasure. Latonya Paul NP [facility] Department of Orthopaedics & Rehabilitation [address] [place] [address] Mail Code: OP31 [facility] [phone] documented in this enc ounter Progress Notes Kanchan Luis MD - 09/08/2016 10:14 AM PSTFormatting of this note might be different fr om the original. [facility] DEPARTMENT OF ORTHOPAEDICS & REHABILITATION Progress [...] Discharge: Likely Today Kanchan Luis MD 09/08/2016 [facility] Department of Orthopaedics & Rehabilitation [address] [place] [address] Mail Code: OP31 [facility] [id number] Kanchan Amado MD - 09/07/2016 10:51 AM PST [facility] DEPARTMENT OF ORTHOPAEDICS & REHABILITATION POST-OPERATIVE [...] Postop xray reviewed Kanchan Luis MD 09/07/2016 [facility] Department of Orthopaedics & Rehabilitation [address] [place] [address] Mail Code: OP31 [facility] [phone] [email or web address] Pager: [phone] documented in this e ncounter Plan of [...] | | | | | | [place], [place] | | | | | | [address] | | | | | | [phone] | | | | | | | [...] | | | LABORATORY | | | [place] | | | SERVICES, | | | [...] | + + + + + | [facility] | [address] | [place] [address] | | | SERVICES, CORE | [address] | | | + + + + + OPERATION RECORD (09/08/2016 9:12 AM PST) + + | Procedure Note | + + | Lobo Jeffers MD - 09/07/2016 10:29 AM PST Date of Service: 09/07/2016 | | Attending Surgeon:Lobo Jeffers MD Roving Machine Operator(s):Janette Begum | | SIDNEY Das, Orthopedic PA. Janette was used as the assistant manager airside operations, as there were no | | available [...] capsule was repaired with 0 Vicryl in [id number]-se-dlmtf | | fashion. The gluteal fibers and the IT band were repaired with 0 Vicryl in | | elghfj-xe-ostxo fashion. The subcutaneous tissue was repaired with [...] | | 09/07/2016 09:13:48DT: 09/07/2016 10:29:24Job #: [id number] | |Postoperative Plan: The patient can be weightbearing as tolerated. Posterior hip precauti ons and discharged when stable. | | | | | | | |Lobo Jeffers MD | |[facility] | | | | | | /[phone] | + + CBC (HEMOGRAM) ONLY (09/08/2016 [...] | + + + + + | [facility] | [address] | [place] [address] | | | SERVICES, INDRA | [address] [...] [facility] | [address] | [place], [place] | | | [facility] POINT OF CARE | [address] | [address] | | | TESTS | | | [...] + + + | YESSICA S[facility] | [address] | [place], [place] | | | RUTHIE CARTER OF [facility] | [address] | [address] | | | TESTS | | | | + + + + + PROCEDURE NOTE (09/07/2016 9:08 AM PST) + + + | Narrative | Performed At | + + + | Lobo Jeffers MD 09/07/2016 9:08 AM Brief Operative Note | | | Preop diagnosis:avascular necrosis left hip Postop | | | diagnosis:same Procedure:left total hip arthropasty Surgeon: | | | Zeyad Roving Machine Operator:Audrey Beckett Estimated Blood Loss:200 | | | [...] [facility] | [address] | [place], [place] | | | RUTHIE CARTER OF CARE | [address] | [address] | | | TESTS | | | [...] MRN | | | | | | [id number] and | | | | | | [...] identified. | | | | | | Wholes[employer] sections | | | | | | are | | | | | | submitted,decalcificatio | | | | | | n by hydrochloric acid. | | | | | | Cassette Index:A1: | | | | | | articular surfaceA2: | | | | | | customer relations representative margin | | | | | [...] | + + + + + | [facility] | [address] | [place] [address] | | | PATHOLOGY | [address] [...]
--- OUTSIDE RECORDS SUMMARY | ~2019-05-17 | XMS | Encounter Summary ---
Demographics + + + | Address | [address] | | | [place] [address] | + + + | Home Phone [...] Team Providers + +------+ + | Care Paper Ruler Name | Role | Phone | + [...] | | | | | remission | [address] | [id number] | | | | | Procedures | Phone: | [place] | | | | | [place] | [phone] | Pavilion | | | | | AZACITIDINE | Fax: | [place], [place] | | | | | INJECTION, 1 | [phone] | [address] | | | | | [place] | | Phone: | | | | | CHM,IV | | [phone] | | | | | INFSN,1 HR | | Fax: | | | | | [place] CH[facility],IV | | [phone] | | | | | INFSN,ADDL | | | | | | | HR Vidaza | | | +--------+---------+ + + + + Encounter Details +--------+ + + + + | Date | Type | Department | Care Team | Description | +--------+ + + + + | 12/27/ | Clinical | Center for | | Chemotherapy | | 2016 | Support | Hematologic | | | | | Staff | Malignancies at [facility] | | | | | | [address] | | | | | | [address] [place] Mailcode: | | | | | | [id number] [place] | | | | | | [place], | | | | | | [place] [address] | | | | | | [phone] | | | +--------+ + + + [...] + + + | Blood Pressure | 139/87 | 12/28/2015 9:11 AM | | | | | PDT | | + + + + + | Pulse | 93 | 12/28/2015 9:11 AM | | | | | PDT | | + + + + + | Temperature | 37 C (98.6 F) | 12/28/2015 9:11 AM | | | | | PDT | | + + + + + | Respiratory Rate | 18 | 12/28/2015 9:11 AM | | | | | PDT | | + + + + + | Oxygen Saturation | 100% | 12/28/2015 9:11 AM | | | | | PDT | | + + + + + | Inhaled Oxygen | - | - | | | Concentration | | | | + + + + + | Weight | 85.9 kg (189 lb 6 | 12/28/2015 9:11 AM | | | | oz) | PDT | | + + + + + | Height | - | - | | + + + + + | Body Mass Index | 24.48 | 08/18/2015 4:35 PM | | | | | PST | | + + + + + documented in this encounter Progress Notes Deedee Benites, ZAFAR - 12/28/2015 9:41 AM PDT Assessment Patient states they are feeling well today. His knees are feeling much better. Patient states they are eating well and drinking 2L of fluid each day. Patient has no new complaints. Patient reports: Fever: no; Diarrhea: no; SOB / Cough: no; Nausea / Vomiting: no; Anemia / Fatigue: no; Cons tipation: no; Edema: no; S/S Bleeding: no; Mucositis: no; Urinary: no; Neuropathy: no; Rash: much improved, almost non-existent Lab No labs are ordered today. Neostar accessed per protocol. Good blood return noted. Neost ar pulse flushed with 20 mL NS. Chemotherapy Allergies: Khurram is allergic to chlorhexidine towelette. Labs: Lab Results Component Value Date WBC 8.8 12/27/2015 HB 14.0 12/27/2015 HCT 40.4* 12/27/2015 PLT 90* 12/27/2015 BUN 13 12/27/2015 CR 0.6* 12/27/2015 For Treatment Done in Clinic Today: see MAR Narrative: Patient was pre-medicated with Ondansetron 8mg PO. Chemotherapy was checked by 2 RNs. IV Vidaza was infused per chemotherapy protocol and com pleted without adverse event. Positive blood return noted pre, during and post infusion. F or infusion details, see MAR. Assessment: Tolerated procedure Patient discharged home, ambulatory from clinic with caregiver. They will RTC 12/29/15. Deedee Benites RN docujustus ented in this encounter Plan of Treatment [...] Rd | | | | | | [place], [place] | | | | | | [address] | | | | | | [phone] | | | | | | | [...] 70 mg in | New Bag | 12/28/19 | 70 mg | 214 | Central | | NaCl 0.9 % IV 70 mg (rounded | | 16 10:15 | | mL/hr | Line | | from 67.84 mg = 32 mg/m2 | | AM PDT | | | | | 2.12 m2 Treatment plan recorded | | | | | | | BSA), intravenous, Administer | | | | | | | over 30 Minutes, ONCE, 1 dose, | | | | | | | 12/28/15 at 1000, HIGH RISK | | | | | | | MEDICATION-CHEMOTHERAPY | | | | | | | Administration must be completed | | | | | | | within 1 hour of preparation., | | | | | | + +---------+ +-------+-------+ + +---+---+ | | | +---+---+ + +-------+ + +---+---+ | heparin 10 unit/mL IV flush | Given | 12/28/19 | 50 Units | | | | syringe 50 Units 50 Units, | | 16 11:00 | | | | | Intracatheter, NEEDED, | | AM PDT | | | | | Starting e 12/28/15 at 1132, | | | | | | | Until Sun12/28/15 at 1733, line | | | | | | | patency | | | | | | + +-------+ + +---+---+ +-------+ + +---+---+ | Given | 12/28/19 | 50 Units | | | | | 16 10:59 | | | | | | AM PDT | | | | +-------+ + +---+---+ | Given | 12/28/19 | 50 Units | | | | | 16 10:58 | | | | | | AM PDT | | | | +-------+ + +---+---+ +---+---+ | | | +---+---+ + +-------+ +------+---+---+ | ondansetron (ZOFRAN) tablet 8 | Given | 12/28/19 | 8 mg | | | | mg 8 mg, oral, ONCE, 1 dose, Tue | | 16 9:16 | | | | | 12/28/15 at 0915 | | AM PDT | | | | + +-------+ +------+---+---+ +---+---+ | | | +---+---+ documented in this encounter"
--- OUTSIDE RECORDS SUMMARY | ~2019-05-17 | XMS | Encounter Summary ---
Demographics + + + | Address | [address] | | | [place] [address] | + + + | Home Phone [...] Providers + +------+ + | Care Mechanical Striper Name | Role | Phone | + [...] | | | ic leukemia, | Je Eguene | [address] | | | | | not having | [address] | Mailcode: | | | | | achieved | [place], [place] | [facility] | | | | | remission | [address] | [place] | | | | | | Phone: | Pavilion | | | | | Procedures | [phone] | [place], [place] | | | | | MD EST | Fax: | [phone] | | | | | PATIENT | [phone] | Phone: | | | | | LEVEL V | | [phone] | | | | | | | Fax: | | | | | | | [phone] | + +--------+ + + + + Encounter Details +--------+ + + + + | Date | Type | Department | Care Team | Description | +--------+ + + + + | 05/15/ | Hospital | Hematology/Medical | A, [address] | | | 2019 | Encounter | Oncology at [facility] | [address] [place], | | | | | [address] | [place] [address] | | | | | Mailcode: [place] | | | | | | for [facility] and | | | | | | Healing, [address] | | | | | | [place], [place] | | | | | | [address] | | | | | | [phone] | | | +--------+ + + + [...] 2019 | Visit | Malignancy | [address] [facility] | | | | | | [address] | | | | | | [place], [place] | | | | | | [address] | | | | | | [phone] | | | | | | | [...] | | | | ent of Pathology, [place] | | | | | | Health [...] CD123 | | | | | | [id number] HLA-DR sKappa | | | | | [...] REHAB DEPARTMENT | [address] | [place] [address] | | | PATHOLOGY | [address] | | | + + + + + | [facility] | [address] | [place] [address] | | | SERVICES, [facility] | | | | | HEALTH [...]
--- OUTSIDE RECORDS SUMMARY | ~2019-05-17 | XMS | Encounter Summary ---
Demographics + + + | Address | [address] | | | [place] [address] | + + + | Home Phone [...] Providers + +------+ + | Care Senior Science Consultant Name | Role | Phone | [...] | | | | | achieved | [facility] [place] | [facility] | | | | | remission | [address] | [facility] | | | | | | Phone: | Pavilion | | | | | Procedures | [phone] | [place], [place] | | | | | Post BMT | Fax: | [address] | | | | | Auth to | [phone] | Phone: | | | | | included | | [phone] | | | | | facility, | | Fax: | | | | | diagnostics, | | [phone] | | | | | office | | | | | | | visits and | | | | | | | surgery | | | +--------+---------+ + + + + Encounter Details +--------+---------+ + + + | Date | Type | Department | Care Team | Description | +--------+---------+ + + + | 09/20/ | Office | Center for | Saunders, Me L, | Acute myeloid | | 2016 | Visit | Hematologic | PA-C [address] [facility] [address] [facility] | leukemia (AML), M4 | | | | Malignancies at | [address] | ([facility])- primary | | | | [facility] | [place], [place] | induction failure | | | | [address] [facility] | [address] | (Primary Dx); S/P | | | | [address] Mailcode: | [phone] | allogeneic bone | | | | [facility] | | marrow transplant | | | | [facility] [place], | | ([facility]) | | | | [place] [address] | | | | | | [phone] | | | +--------+---------+ + + + [...] + + + | Blood Pressure | 114/77 | 09/21/2015 10:54 AM | | | | | PDT | | + + + + + | Pulse | 68 | 09/21/2015 10:54 AM | | | | | PDT | | + + + + + | Temperature | 36.8 C (98.2 F) | 09/21/2015 10:54 AM | | | | | PDT | | + + + + + | Respiratory Rate | 16 | 09/21/2015 10:54 AM | | | | | PDT | | + + + + + | Oxygen Saturation | 100% | 09/21/2015 10:54 AM | | | | | PDT | | + + + + + | Inhaled Oxygen | - | - | | | Concentration | | | | + + + + + | Weight | 78.4 kg (172 lb 13.5 | 09/21/2015 10:54 AM | | | | oz) | PDT | | + + + + + | Height | - | - | | + + + + + | Body Mass Index | 22.34 | 08/18/2015 4:35 PM | | | | | PST | | + + + + + documented in this encounter Patient Instructions Patient Instructions Em Saunders PA-C - 09/21/2015 8:35 AM PDT-Take your temperature regularly (3-4 x daily) and to call immediately for a temperature of 100.4 or greater. -We'll call you to adjust your Tacrolimus if necessary. -Decrease prednisone down to 35 mg once in the morning and 15 mg once in the late afternoon . -Try taking Zofran (ondansetron) 4-8 mg every 12 hours to help prevent vomiting. Taking twi ce daily at 9 am and 9 pm is a good schedule. -A refill for the triamcinolone 0.1% cream has been sent to the [facility] pharmacy in [facility]. documented in this encounter Progress Notes Em Saunders PA-C - 09/21/2015 5:21 PM PDTFormatting of this note might be different f rom the original. 09/21/2015 [facility] for Hematologic [facility]ignancies [facility] Physician: Yari Garcia MD Local Oncologist: Yari Garcia MD PCP: Pending Pcp ADDITION Hematologic Malignancy: Primary refractory AML Conditioning regimen: tBuCy Date of transplant: 08/27/2015 (two day 0s) Donor: MM URD (DPB1 permissive antigen mismatch, male, [id number]) Hematologic History: Khurram Kelly is a 25 y.o. CM with a PMH of pericarditis who was in his [facility] u ntil 03/13/15 (the night of his [...] his L ankle. He was evaluated at [facility] ED on 06/[address] angiogram negative [...] acute myelomonocytic leukemia. He was referred to [facility] for further evaluation and man agement of his newly dx'd AML. Pt was admitted to [facility] on 05/26/15. Peripheral blood was sent for [...] CD34, variable CD56, variable CD117, and dim IO045-axoow imckey; promonocyte immunophenotype (70% by flow): CD11b, CD13, [...] of primary refractory AML, currently d ay +25, s/p tBuCy conditioned MM URD SCT. Interval History: presents to clinic today for his routine scheduled visit. He is accompanied by his who is his caregiver in clinic today. His rash has improved and has faded or res olved (over back). His rash is itchy over abdomen. He has nausea rarely, but will have emesi s randomly. He will sometimes vomit because water tastes bad or due to taking all his pills. He last vomited this morning. He is going to start taking Zofran twice daily to see if this helps. He continues to have taste alteration, but overall it is improving. He reports he is eating well and taking in 3 meals with snacks. He is taking in over 2L of PO fluids per day . He has 1 BM per day, denies soft stool or constipation. He has been walking some, but does note some fatigue today. Review of Systems: General: +fatigue Denies fevers, chills, weight loss or sweats. [...] No chest pain,lightheadedness,shortness of breath. Gastrointestinal: +nausea rare, emesis randomly Denies indigestion, vomiting, diarrhea, con stipation, abdominal pain, bloody stools or dark tarry [...] 10 MG TABLET Take 35 mg once in the morning and 15 mg once in the late afternoon . (35 mg = 3 & 1/2 tablets and 15 mg = 1 & 1/2 tablets) PROCHLORPERAZINE MALEATE 5 MG TABLET Take 1 tablet by mouth every six hours as needed for n ausea/vomiting. Max dose: 40 mg/day SENNOSIDES-DOCUSATE SODIUM 8.6 MG-50 MG TABLET Take 1 tablet by mouth twice daily as needed (constipation). TACROLIMUS 0.5 MG CAPSULE Take 1.5 mg (one 1 mg capsule plus one 0.5 mg capsule) by mouth i n the morning and 1 mg in the evening. TACROLIMUS 1 MG CAPSULE Take 1.5 mg (one 1 mg capsule plus one 0.5 mg capsule) by mouth in the morning and 1 mg (one capsule) in the evening. TRIAMCINOLONE ACETONIDE 0.1 % TOPICAL CREAM Apply to affected area three times daily. Apply thin film to affected areas. Vitals: BP 114/77 | Pulse 68 | Temp (Src) 36.8 C (98.2 F) (Oral) | RR 16 | Wt 78.4 kg (172 lb 1 3.5 oz) | SpO2 100% | BMI 22.35 kg/(m^2) Pre-transplant weight 165 pounds Physical Exam: General: This is a male in no acute distress, sitting up in chair. HEENT: Sclerae anicteric. Mucosa pink and moist without erythema or exudate. Skin: Fading erythematous maculopapular rash to chest, abd, upper arms bilat, thighs bilat (front and back); ~40% BSA Chest: Lungs clear to auscultation bilat. Normal effort. CV: RRR, no murmurs. Abdomen: S/NT/ND with NABS. No HSM appreciated. Extremities: Pulses strong and equal bilaterally. No c/c/e. Neuro: Alert and oriented x 3. Grossly nonfocal exam. CVC: Central line is a Neostar catheter w/o induration or inflammation. Laboratory Results: CBC with diff: Last 72 hours (or 3 results) Recent Labs 09/21/15 1104 WBC 9.9 HB 10.7* HCT 30.9* PLT 245 MONOPERC 19.9* BASOPERC 0.6 EOSPERC 1.0 Chemistries: Last 72 Hours (or 3 results): Recent Labs 09/10/15 2300 09/11/15 2313 09/12/15 2326 09/14/15 1243 09/14/15 1314 09/17/15 1114 09/17/15 1130 09/21/15 1005 09/21/15 1100 NA 144 143 142 -- 138 -- 138 137 -- K 3.7 3.9 3.9 -- 4.4 -- 4.7 4.0 -- CL 113* 109* 109* -- 101 -- 96* 94* -- BICARB 21 25 25 -- 26 -- 26 28 -- BUN 22* 19 18 -- 17 -- 21* 19 -- CR 0.91 0.94 0.96 -- 1.3 -- 1.0 0.9 -- GLU 90 95 121* -- 93 -- 115* 108* -- CA 8.1* 8.0* 8.3* -- 9.5 -- 9.5 9.5 -- AST 18 22 19 15 -- 12 -- -- 11 ALT 28 31 35 33 -- 31 -- -- 40 AP 63 83 96 119 -- 108 -- -- 87 TBILI 0.5 0.5 0.4 0.4 -- 0.5 -- -- 0.5 TP 5.8* 6.1* 6.1* 6.8 -- 7.2 -- -- 7.2 ALB 2.7* 2.9* 3.0* 3.6 -- 3.8 -- -- 3.8 ANIONGAP 10 9 8 -- -- -- -- -- -- ANIONALBCOR 13* 11 10 -- -- -- -- -- -- Hematology: Hematologic Malignancy: Refractory AML Conditioning Regimen: tBuCy Stem cell transplant -Stem Cell product: tolerated MM (DPB1 permissive antigen mismatch) stem cell product on -08/27 (two day 0s) without complications. CD 34 count = 5.96 x 10^6 per kg -BMT Day: +25 Pertinent Diagnostics: -Around day + 30 repeat [...] eruption of lymphocyte recovery and early mild yrulj-meufrk-prpu disease. On 09/13, rash in volved ~15% BSA. Patient seen next day 09/14 with progression of rash to chest, abd, back, upp er arms bilat, thighs bilat (front and back); ~56% BSA 09/14 and again on 09/16. Rash now start ing to resolve, now fading and no longer on entire back, rash now ~40% BSA. -Triamcinolone cream 0.1% TID to rash -Started Prednisone 1 mg/kg/d (35 mg BID), started on 09/15/15. -09/20 reduced steroids by 25% per Dr. Garcia, taper down prednisone to 35 mg in morning and 15 mg in late afternoon. -Plan for possible taper at next visit 09/23 if rash continues to resolve. -IST as below Prophylaxis/Treatment: -Tacrolimus with levels [...] nausea rare, but will have occasional emesis randomly -Zofran BID as of 09/20 Loose stools: related to therapy. Last C. Diff negative 08/27. Resolved as of 09/16 clinic v isit. -imodium PRN /Renal: No acute issues Neuro/Psych: [...] in clinic PRN Plan: -Mg++ 4g IV today in clinic -The tacrolimus dose will be adjusted when the tacrolimus trough is available. -Reduce steroids by 25%, taper down prednisone to 35 mg in morning and 15 mg in late aftern oon. Plan for possible taper at next visit 09/23 if rash continues to resolve. -Continue Triamcinolone cream to rash TID. -Suggested he take antiemetic ATC to help prevent emesis. Patient to take Zofran (ondansetr on) 4-8 mg every 12 hours to help prevent vomiting. -Return to clinic 09/24/15 to see me, sooner prn. [facility] [address] Mailcode: [place] [address] documented in this encounter Plan [...] 2018 | Visit | Malignancy | [address] [facility] | | | | | | [facility] | | | | | | [place], [place] | | | | | | [address] | | | | | | [phone] | | | | | | | | +--------+---------+ + + + documented as of this encounter Results INGRID+VALENTINEPOC (09/24/2015 8:47 AM PDT) + + + [...] S[facility] | [address] | [place], [place] | | | [facility] POINT OF CARE | [address] | [address] | | | TESTS | | | [...] | + + + + + | [facility] | [address] | [place] [address] | | | SERVICES, CORE | [address] [...] [facility] | [address] | [place] [address] | | | SERVICES, CORE | [address] [...] | + + + + + | [facility] | [address] | [place] [address] | | | SERVICES, SPECIAL | [address] [...] SORTO | [address] | [place], [place] | | | RUTHIE CARTER OF KRISTA | [address] | [address] | | | TESTS | | | [...]
--- OUTSIDE RECORDS SUMMARY | ~2019-05-17 | XMS | Encounter Summary ---
Demographics + + + | Address | [address] | | | [place] [address] | + + + | Home Phone [...] Team Providers + +------+ + | Care Delivery Driver/Supervisor Name | Role | Phone | + +------+ + | Zayda Hinton | PCP | | + +------+ + Encounter Details +--------+ + + + + | Date | Type | Department | Care Team | Description | +--------+ + + + + | 07/05/ | Pharmacy | Specialty Pharmacy | | | | 2014 | Visit | Services [address] | | | | | | [address] | | | | | | [place], [place] | | | | | | [address] | | | | | | [phone] | | | +--------+ + + + [...] [place] | | | | | | [address] | | | | | | [phone] | | | | | | | | +--------+---------+ + + + documented as of this encounter Visit Diagnoses Not on filedocumented in this encounter"
--- OUTSIDE RECORDS SUMMARY | ~2019-05-17 | XMS | Encounter Summary ---
Demographics + + + | Address | [address] | | | [place] [address] | + + + | Home Phone [...] Team Providers + +------+ + | Care Biological Engineer Name | Role | Phone | [...] | | | | | achieved | [place], [place] | [id number] | | | | | remission | [address] | [place] | | | | | | Phone: | Asha | | | | | Procedures | [phone] | [place], [place] | | | | | Post BMT | Fax: | [address] | | | | | Auth to | [phone] | Phone: | | | | | included | | [phone] | | | | | facility, | | Fax: | | | | | diagnostics, | | [phone] | | | | | office | | | | | | | visits and | | | | | | | surgery | | | +--------+---------+ + + + + Encounter Details +--------+------+ + + + | Date | Type | Department | Care Team | Description | +--------+------+ + + + | 11/23/ | Lab | Laboratory, | | S/P allogeneic bone | | 2016 | | Specimen Collection | | marrow transplant | | | | at [facility] 3rd Floor | | ([facility]) | | | | [address] | | | | | | [place], | | | | | | [place] [address] | | | | | | [phone] | | | +--------+------+ + + + [...] Rd | | | | | | [place], [place] | | | | | | [address] | | | | | | [phone] | | | | | | | | +--------+---------+ + + + documented as of this encounter Procedures + +--------+ + + + | Procedure Name | Priori | Date/Time | Associated Diagnosis | Comments | | | ty | | | | + +--------+ + + + | CBC AND AUTO DIFF | Routin | 11/23/2016 | S/P allogeneic | Results for this | | | e | 9:36 AM | bone marrow | procedure are in the | | | | PDT | transplant ([facility]) | results section. | + +--------+ + + + | CBC, WITH | Routin | 11/23/2016 | S/P allogeneic | Results for this | | DIFFERENTIAL | e | 9:36 AM | bone marrow | procedure are in the | | | | PDT | transplant ([facility]) | results section. | + +--------+ + + + | COMPLETE METABOLIC | Routin | 11/23/2016 | S/P allogeneic | Results for this | | SET | e | 9:36 AM | bone marrow | procedure are in the | | (NA,K,CL,CO2,BUN,CRE | | PDT | transplant ([facility]) | results section. | | AT,GLUC,CA,AST,ALT,B | | | | | | YUN TOTAL,ALK | | | | | | PHOS,ALB,PROT TOTAL) | | | | | + +--------+ + + + | TACROLIMUS, WHOLE | Routin | 11/23/2016 | S/P allogeneic | Results for this | | BLOOD | e | 9:36 AM | bone marrow | procedure are in the | | | | PDT | transplant ([facility]) | results section. | + +--------+ + + + | PHOSPHORUS, PLASMA | Routin | 11/23/2016 | S/P allogeneic | Results for this | | | e | 9:36 AM | bone marrow | procedure are in the | | | | PDT | transplant ([facility]) | results section. | + +--------+ + + + | BILIRUBIN DIRECT | Routin | 11/23/2016 | S/P allogeneic | Results for this | | | e | 9:36 AM | bone marrow | procedure are in the | | | | PDT | transplant ([facility]) | results section. | + +--------+ + + + | URIC ACID, PLASMA | Routin | 11/23/2016 | S/P allogeneic | Results for this | | | e | 9:36 AM | bone marrow | procedure are in the | | | | PDT | transplant ([facility]) | results section. | + +--------+ + + + | MAGNESIUM, PLASMA | Routin | 11/23/2016 | S/P allogeneic | Results for this | | | e | 9:36 AM | bone marrow | procedure are in the | | | | PDT | transplant ([facility]) | results section. | + +--------+ + + + | LDH TOTAL, PLASMA | Routin | 11/23/2016 | S/P allogeneic | Results for this | | | e | 9:36 AM | bone marrow | procedure are in the | | | | PDT | transplant ([facility]) | results section. | + +--------+ + + + documented in this encounter Results CBC AND AUTO DIFF (11/23/2016 9:36 AM PDT) + + + + + + | Component | Value | Ref Range | Performed | Pathologist | | | | | At | Signature | + + + + + + | WHITE CELL | 9.80 | 3.50 - 10.80 | [facility] | | | COUNT | | K/cu mm | LABORATORY | | | | | | SERVICES, | | | | | | CORE | | + + + + + + | RED CELL | 4.16 (L) | 4.50 - 6.00 | [facility] | | | COUNT | | M/cu mm | LABORATORY | | | | | | SERVICES, | | | | | | CORE | | + + + + + + | HEMOGLOBIN | 13.3 (L) | 13.5 - 17.5 | [facility] | | | | | g/dL | LABORATORY | | | | | | SERVICES, | | | | | | CORE | | + + + + + + | HEMATOCRIT | 39.3 (L) | 41.0 - 53.0 % | [facility] | | | | | | LABORATORY | | | | | | SERVICES, | | | | | | CORE | | + + + + + + | MCV | 94.5 | 80.0 - 96.0 fL | [facility] [...] + + + | RDW SD | 51.6 (H) | 35.1 - 46.3 fL | [...] + + + + | NEUTROPHIL | 63.5 | 50.0 - 70.0 % | [facility] | | | % | | | LABORATORY | | | | | | SERVICES, | | | | | | CORE | | + + + + + + | LYMPHOCYTE | 27.8 | 18.0 - 42.0 % | [facility] | | | % | | | LABORATORY | | | | | | SERVICES, | | | | | | CORE | | + + + + + + | MONOCYTE % | 7.2 | 3.5 - 9.0 % | [facility] | | | | | | LABORATORY | | | | | | SERVICES, | | | | | | CORE | | + + + + + + | EOS % | 0.6 (L) | 1.0 - 3.0 [...] + + + + | NEUTROPHIL | 6.22 | 1.80 - 7.70 | [facility] | | | # | | K/cu mm | LABORATORY | | | | | | SERVICES, | | | | | | CORE | | + + + + + + | LYMPHOCYTE | 2.72 | 1.00 - 4.80 | [facility] | | | # | | K/cu mm | LABORATORY | | | | | | SERVICES, | | | | | | CORE | | + + + + + + | MONOCYTE # | 0.71 | 0.10 - 0.90 | [facility] | | | | | K/cu mm | LABORATORY | | | | | | SERVICES, | | | | | | CORE | | + + + + + + | EOS # | 0.06 | 0.00 - 0.50 | [facility] | [...] + + + + | [facility] | [address] | [place] [address] | | | SERVICES, CORE | [address] | | | + + + + + TACROLIMUS, WHOLE BLOOD (11/23/2016 9:36 AM PDT) + + + + + + | Component | Value | Ref Range | Performed | Pathologist | | | | | At | Signature | + + + + + + | TACROLIMUS | <2.0 (L) | 5.0 - 15.0 | [facility] | | | ([address]) | | [...] + | Test performed by immunoassay using [employer] i2000. . | [facility] | | Samples [...] [facility] | [address] | [place] [address] | | | SERVICES, SPECIAL | [address] | | | | IMM + COAG | | | | + + + + + LDH TOTAL, PLASMA (11/23/2016 9:36 AM PDT) + +---------+ + + + | Component | Value | Ref Range | Performed | Pathologist | | | | | At | Signature | + +---------+ + + + | LD TOTAL, | 130 | <=250 U/L | [facility] | | [...] | + + + + + | [facility] | [address] | [place] [address] | | | KOLE, INDRA | [address] | | | + + + + + DUARTE BURROWS (11/23/2016 9:36 AM PDT) + +---------+ + + + [...] [facility] | [address] | [place] [address] | | | SERVICES, CORE | [address] | | | + + + + + URIC ACID, PLASMA (11/23/2016 9:36 AM PDT) + +-------+ + + + | Component | Value | Ref Range | Performed | Pathologist | | | | | At | Signature | + +-------+ + + + | URIC ACID, | 4.6 | 3.7 - 8.0 mg/dL | [facility] [...] | + + + + + | [facility] | [address] | [place] [address] | | | SERVICES, CORE | [address] | | | + + + + + PHOSPHORUS, PLASMA (11/23/2016 9:36 AM PDT) + +-------+ + + + [...] [facility] | [address] | [place] [address] | | | SERVICES, CORE | [address] | | | + + + + + MAGNESIUM, PLASMA (11/23/2016 9:36 AM PDT) + +-------+ + + + [...] [facility] | [address] | [place] [address] | | | SERVICES, CORE | [address] | | | + + + + + COMPLETE METABOLIC SET (NA,K,CL,CO2,BUN,CREAT,GLUC,CA,AST,ALT,BILI TOTAL,ALK PHOS,ALB,PROT TOTAL) (11/23/2016 9:36 AM PDT) + +---------+ + + + [...] +---------+ + + + | CREATININE | 0.77 | 0.70 - 1.30 | [facility] | | | PLASMA | | mg/dL | LABORATORY | | | (LAB) | | | SERVICES, | | | | | | CORE | | + +---------+ + + + | EGFR | >60 | >60 mL/min | [facility] | | | - | | | LABORATORY | | | [facility] | | | SERVICES, | | | [...] | + + + + + | [facility] | [address] | [place] [address] | | | SERVICES, CORE | [address] | | | + + + + + documented in this encounter Visit Diagnoses + + | Diagnosis | + + | 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
--- OUTSIDE RECORDS SUMMARY | ~2019-05-17 | XMS | Encounter Summary ---
Demographics + + + | Address | [address] | | | [place] [address] | + + + | Home Phone [...] Team Providers + +------+ + | Care Extruding Press Operator Name | Role | Phone [...] Interventional | | | | | | [facility] | | | | | | [address] | | | | | | [place], | | | | | | [place] [address] | | | | | | [phone] | | | +--------+ + + + [...] Discharge Instructions Instructions Sobeida Rodriguez, ZAFAR - 03/09/2016[place] [facility] Following Venous Catheter Removal Your catheter [...] pm and on weekends, call the Hospital Loan Interviewer Mortgage at and ask for the Interventional Radiology Fellow loss prevention leader. documented in this encounter Plan of Treatment [...] 2018 | Visit | Malignancy | [address] | | | | | | [address] | | | | | | [place], [place] | | | | | | [address] | | | | | | [phone] | | | | | | | | +--------+---------+ + + + documented as of this encounter Visit Diagnoses Not on filedocumented in this encounter"
--- OUTSIDE RECORDS SUMMARY | ~2019-05-17 | XMS | Encounter Summary ---
Demographics + + + | Address | [address] | | | [place] [address] | + + + | Home Phone [...] Team Providers + +------+ + | Care Bariatric Coordinator Name | Role | Phone | [...] | | | | Christian Barry | [place], [place] | | | | | [address] | [address] | | | | | [place] Mailcode: | [phone] | | | | | [facility] | | | | | | [place], | | | | | | [place] [address] | | | | | | [phone] | | | +--------+--------+ + + + [...] Rd | | | | | | [place] | | | | | | [address] | | | | | | [phone] | | | | | | | | +--------+---------+ + + + documented as of this encounter Visit Diagnoses Not on filedocumented in this encounter"
--- OUTSIDE RECORDS SUMMARY | ~2019-05-17 | XMS | Encounter Summary ---
Demographics + + + | Address | [address] | | | [place] [address] | + + + | Home Phone [...] Team Providers + +------+ + | Care Forensic Structural Engineer Name | Role | Phone | + +------+ + | Zayda Hinton | PCP | | + +------+ + Encounter Details +--------+--------+ + + + | Date | Type | Department | Care Team | Description | +--------+--------+ + + + | 12/19/ | Travel | | | | | [...] Rd | | | | | | [place], [place] | | | | | | [address] | | | | | | [phone] | | | | | | | | +--------+---------+ + + + documented as of this encounter Visit Diagnoses Not on filedocumented in this encounter"
--- OUTSIDE RECORDS SUMMARY | ~2019-05-17 | XMS | Encounter Summary ---
Demographics + + + | Address | [address] | | | [place] [address] | + + + | Home Phone [...] Team Providers + +------+ + | Care Managing Attorney Name | Role | Phone | + [...] | | | | | achieved | [place], [place] | [id number] | | | | | remission | [address] | [facility] | | | | | | Phone: | [facility] | | | | | Procedures | [phone] | [place], [place] | | | | | Post B[place] | Fax: | [address] | | | | | Auth to | [phone] | Phone: | | | | | included | | [phone] | | | | | facility, | | Fax: | | | | | diagnostics, | | [phone] | | | | | office | | | | | | | visits and | | | | | | | surgery | | | +--------+---------+ + + + + Encounter Details +--------+ + + + + | Date | Type | Department | Care Team | Description | +--------+ + + + + | 06/18/ | Diagnostic | Center for | | Lab Draw | | 2016 | Visit | Hematologic | | | | | | Malignancies at | | | | | | [facility] | | | | | | [address] | | | | | | [place] Mailcode: | | | | | | [facility] | | | | | | [place], | | | | | | [place] [address] | | | | | | [phone] | | | +--------+ + + + [...] documented as of this encounter Progress Notes Razia Prado MA - 06/18/2017 1:00 PM PSTRight AC accessed with a 23 gauge butterfly need le. Labs drawn and sent. Pt tolerated procedure well. Site dressed with sterile gauze and co ban. Patient scheduled for provider visit today with ORLY Yanes. documented in this enco unter Plan of [...] Rd | | | | | | [place] | | | | | | [address] | | | | | | [phone] | | | | | | | | +--------+---------+ + + + documented as of this encounter Visit Diagnoses Not on filedocumented in this encounter"
--- OUTSIDE RECORDS SUMMARY | ~2019-05-17 | XMS | Encounter Summary ---
Demographics + + + | Address | [address] | | | [place] [address] | + + + | Home Phone [...] Team Providers + +------+ + | Care Door Patcher Name | Role | Phone | + [...] | | | | Christian Barry | [place], [place] | | | | | [address] | [address] | | | | | [place] Mailcode: | [phone] | | | | | [facility] | | | | | | [place], | | | | | | [place] [address] | | | | | | [phone] | | | +--------+--------+ + + + [...] Rd | | | | | | [place] | | | | | | [address] | | | | | | [phone] | | | | | | | | +--------+---------+ + + + documented as of this encounter Visit Diagnoses Not on filedocumented in this encounter"
--- OUTSIDE RECORDS SUMMARY | ~2019-05-17 | XMS | Encounter Summary ---
Demographics + + + | Address | [address] | | | [place] [address] | + + + | Home Phone [...] Providers + +------+ + | Care Director Business Name | Role | Phone | + +------+ + | Pending Pcp Addition | PCP | Unavailable | + +------+ + Reason for Visit + + + | Reason | Comments | + + + | Lab Draw | PICC | + + + | Transfusion | pRBC | + + + Benefits Check (Routine) [...] | | | | | | [place], | | | | | | | [place] | | | | | | | [address] | | | | | | | Phone: | | | | | | | [phone] | | | | | | | Fax: | | | | | | | [phone] | +--------+--------+ + + + + Encounter Details +--------+ + + + + | Date | Type | Department | Care Team | Description | +--------+ + + + + | 07/17/ | Clinical | Center for | | Lab Draw (PICC); | | 2016 | Support | Hematologic | | Transfusion (pRBC) | | | Staff | [facility] at [facility] | | | | | | [address] | | | | | | Wally Burger Mailcode: | | | | | | [id number] [place] | | | | | | [place], | | | | | | [place] [address] | | | | | | [phone] | | | +--------+ + + + [...] + + + | Blood Pressure | 104/61 | 07/17/2015 10:13 AM | | | | | PST | | + + + + + | Pulse | 63 | 07/17/2015 10:13 AM | | | | | PST | | + + + + + | Temperature | 36.7 C (98 F) | 07/17/2015 10:13 AM | | | | | PST | | + + + + + | Respiratory Rate | 16 | 07/17/2015 10:13 AM | | | | | PST | | + + + + + | Oxygen Saturation | 100% | 07/17/2015 8:00 AM | | | | | PST | | + + + + + | Inhaled Oxygen | - | - | | | Concentration | | | | + + + + + | Weight | 82.3 kg (181 lb 7 | 07/17/2015 8:00 AM | | | | oz) | PST | | + + + + + | Height | - | - | | + + + + + | Body Mass Index | 22.98 | 07/15/2015 1:57 PM | | | | | PST | | + + + + + documented in this encounter Progress Notes Babar Cook MA - 07/17/2015 8:34 AM PSTName of Test: CBC Result: No ANC and Blasts? Time Results Received: 8:30 AM Read Back Done: Yes Name of Provider Notified: Lizzie Leavitt Date/Time of Provider Notification: 07/17/15 8:33 PM Action(s) Taken: Sent to Core lab. Maryan Condon RN - 07/17/2015 8:18 AM PST INFUSION/TRANSFUSION NURSING NOTE Name: Khurram Kelly Date: 07/17/2015 Provider: Dr. Garcia Subjective: Patient denies fever, cold/flu symptoms, N/V/D, edema, signs of bleeding, neuro prashanth and rash. Patient reports eating and drinking adequately. Patient reports some tooth p ain rated 3/10. Past illnesses: Khurram has a past medical [...] reports a pain level of 3 today. For Treatment Done in Clinic Today refer to MAR Narrative: PICC accessed per protocol. Good blood return noted. Appropriate waste discarded. Labs d rawn and sent. PICC pulse flushed with 20 mL NS. Per lab work no need for electrolyte replacement. Lab Results Component Value Date HCT 18.7 [...] verified. The patient was premedicated with Benadryl 50 mg verbal order received from JULIANA Patterson, then received 1 unit of PRBCs per Provider s orders. Transfusion was tolerated well without complication. Frequent vital signs were monitored throughout the transfusion and re viewed by me. For transfusion details, see ONC Lines & Transfusions doc flowsheet. Post Infusion Pain score: 0 Assessment: Tolerated procedure. Patient discharged from clinic ambulatory accompanied by Rusty xie. Plan for next visit on Sunday for labs and chemotherapy. VSS. 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 | + +--------+ + + + | CBC AND AUTO DIFF | Urgent | 07/17/2015 | Acute myeloid | Results for this | | | | 8:33 AM | leukemia (AML), M4 | procedure are in the | | | | PST | ([facility]) | results section. | + +--------+ + + + | MANUAL DIFFERENTIAL | Routin | 07/17/2015 | Acute myeloid | Results for this | | | e | 8:33 AM | leukemia (AML), M4 | procedure are in the | | | | PST | ([facility]) | results section. | + +--------+ + + + | CBC, WITH | Urgent | 07/17/2015 | Acute myeloid | Results for this | | DIFFERENTIAL | | 8:33 AM | leukemia (AML), M4 | procedure are in the | | | | PST | ([facility]) | results section. | + +--------+ + + + | CMP, POC (BMP+LFT) | Routin | 07/17/2015 | Acute myeloid | Results for this | | | e | 8:19 AM | leukemia (AML), M4 | procedure are in the | | | | PST | ([facility]) | results section. | + +--------+ + + + | ANTIBODY SCREEN | Routin | 07/17/2015 | Acute myeloid | Results for this | | | e | 7:59 AM | leukemia (AML), M4 | procedure are in the | | | | PST | ([facility]) | results section. | + +--------+ + + + | TYPE AND SCREEN | Routin | 07/17/2015 | Acute myeloid | Results for this | | | e | 7:59 AM | leukemia (AML), M4 | procedure are in the | | | | PST | ([facility]) | results section. | + +--------+ + + + | ABO & RH TYPE | Routin | 07/17/2015 | Acute myeloid | Results for this | | | e | 7:59 AM | leukemia (AML), M4 | procedure are in the | | | | PST | ([facility]) | results section. | + +--------+ + + + | TREATMENT PARAMETERS | Routin | 07/17/2015 | 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 | 7:58 AM | leukemia (AML), M4 | | | | | PST | ([facility]) | | + +--------+ + + + | TREATMENT PARAMETERS | Routin | 07/17/2015 | 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 | 7:58 AM | leukemia (AML), M4 | | | | | PST | ([facility]) | | + +--------+ + + + | TREATMENT PARAMETERS | Routin | 07/17/2015 | 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 | 7:58 AM | leukemia (AML), M4 | | | | | PST | (HCC) | | + +--------+ + + + | TREATMENT PARAMETERS | Routin | 07/17/2015 | 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 | 7:58 AM | leukemia (AML), M4 | | | | | PST | (HCC) | | + +--------+ + + + | TREATMENT PARAMETERS | Routin | 07/17/2015 | 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 | 7:58 AM | leukemia (AML), M4 | | | | | PST | (HCC) | | + +--------+ + + + | NURSING | Routin | 07/17/2015 | Acute myeloid | | | COMMUNICATION #3 - | e | 7:58 AM | leukemia (AML), M4 | | | [place] | | PST | (HCC) | | + +--------+ + + + | NURSING | Routin | 07/17/2015 | Acute myeloid | | | COMMUNICATION #2 - | e | 7:58 AM | leukemia (AML), M4 | | | [place] | | PST | (HCC) | | + +--------+ + + + | NURSING | Routin | 07/17/2015 | Acute myeloid | | | COMMUNICATION #1 - | e | 7:58 AM | leukemia (AML), M4 | | | [place] | | PST | (HCC) | | + +--------+ + + + | TREATMENT PARAMETERS | Routin | 07/17/2015 | Acute myeloid | | | #1 - BEACON | e | 7:58 AM | leukemia (AML), M4 | | | | | PST | (HCC) | | + +--------+ + + + | TREATMENT PARAMETERS | Routin | 07/17/2015 | Acute myeloid | | | #1 - BEACON | e | 7:58 AM | leukemia (AML), M4 | | | | | PST | ([facility]) | | + +--------+ + + + | LDH TOTAL, PLASMA | Routin | 07/17/2015 | Acute myeloid | Results for this | | | e | 7:58 AM | leukemia (AML), M4 | procedure are in the | | | | PST | ([facility]) | results section. | + +--------+ + + + documented in this encounter Results PRODUCT - PLATELET PHERESIS LEUKOREDUCED (07/17/2015 8:41 AM PST) + + + + + [...] + + + + | PRODUCT | [id number] | | [facility] | | | UNIT [...] + + + + | EXPIRATION | [id number] | | [facility] | | | DATE [...] + + + + | BLOOD | [id number] | | [facility] | | | PRODUCT [...] + + + + + | [facility] | [address] | [place] [address] | | | PATHOLOGY | [address] | | | + + + + + PRODUCT - RED CELLS LEUKOREDUCED (07/17/2015 8:41 AM PST) + + + + + [...] + + + + | PRODUCT | [id number] | | [facility] | | | UNIT [...] + + + + | EXPIRATION | [id number] | | [facility] | | | DATE [...] + + + + | BLOOD | [id number] | | [facility] | | | PRODUCT [...] + + + + + | [facility] DEPART[facility] | [address] | [place] [address] | | | PATHOLOGY | [address] | | | + + + + + MANUAL DIFFERENTIAL (07/17/2015 8:33 AM PST) + + + + + + | Component | Value | Ref Range | Performed | Pathologist | | | | | At | Signature | + + + + + + | NEUTROPHIL | 0.9 (L) | 50.0 - 70.0 % | [facility] | | | % | | | LABORATORY | | | | | | SERVICES, | | | | | | CORE | | + + + + + + | LYMPHOCYTE | 41.7 | 18.0 - 42.0 % | [facility] | | | % | | | LABORATORY | | | | | | SERVICES, | | | | | | CORE | | + + + + + + | MONOCYTE % | 55.7 (H) | 3.5 - 9.0 % | [...] + + + + | ATYPICAL | 1.7 (H) | 0.0 % | [facility] | | [...] + + + | MONOCYTE # | 0.52 | 0.10 - 0.90 | [facility] | [...] + + + + | ATYPICAL | 0.02 | K/cu mm | [facility] [...] [facility] | [address] | [place] [address] | | | INDRA SHARIF | [address] | | | + + + + + CBC AND AUTO DIFF (07/17/2015 8:33 AM PST) + + + + + + | Component | Value | Ref Range | Performed | Pathologist | | | | | At | Signature | + + + + + + | WHITE CELL | 0.94 (L) | 4.40 - 11.00 | [facility] | | | COUNT | | K/cu mm | LABORATORY | | | | | | SERVICES, | | | | | | CORE | | + + + + + + | RED CELL | 2.32 (L) | 4.50 - 6.00 | [facility] | | | COUNT | | M/cu mm | LABORATORY | | | | | | SERVICES, | | | | | | CORE | | + + + + + + | HEMOGLOBIN | 6.8 (L) | 13.5 - 17.5 | [facility] | | | | | g/dL | LABORATORY | | | | | | SERVICES, | | | | | | CORE | | + + + + + + | HEMATOCRIT | 18.7 (L) | 41.0 - 53.0 % | [facility] | | | | | | LABORATORY | | | | | | SERVICES, | | | | | | CORE | | + + + + + + | MCV | 80.6 | 80.0 - 96.0 fL | [facility] [...] + + + | RDW SD | 33.4 (L) | 35.1 - 46.3 fL | [...] | + + + + + | [facility] | [address] | [place] [address] | | | KOLE, INDRA | [address] | | | + + + + + PHIL ALCAZAR (07/17/2015 8:19 AM PST) + +---------+ + + + [...] + + + | ALT, CMP | 38 | 0 - 60 U/L | [facility] [...] [facility] | [address] | [place], [place] | | | RUTHIE CARTER OF CARE | [address] | [address] | | | TESTS | | | | + + + + + ANTIBODY SCREEN (07/17/2015 7:59 AM PST) + + + + + [...] | + + + + + | [facility] | [address] | [place] [address] | | | SERVICES, | [address] | | | | TRANSFUSION MEDICINE | | | | + + + + + ABO & RH TYPE (07/17/2015 7:59 AM PST) + + + + + [...] [facility] | [address] | [place] [address] | | | SERVICES, | [address] | | | | TRANSFUSION MEDICINE | | | | + + + + + LDH TOTAL, PLASMA (07/17/2015 7:58 AM PST) + +---------+ + + + [...] [facility] | [address] | [place] [address] | | | SERVICES, CORE | [address] [...] +-------+------+------+ | diphenhydrAMINE (BENADRYL) | Given | 07/17/19 | 50 mg | | | | capsule 50 mg 50 mg, oral, ONCE, | | 16 8:48 | | | | | 1 dose, 07/17/15 at 0845 | | AM PST | | | | + +--------+ +-------+------+------+ +---+---+ | | | +---+---+ documented in this encounter"
--- OUTSIDE RECORDS SUMMARY | ~2019-05-17 | XMS | Encounter Summary ---
Demographics + + + | Address | [address] | | | [place] [address] | + + + | Home Phone [...] Team Providers + +------+ + | Care Park Guard Name | Role | Phone | [...] + + + + | 02/15/ | Telephone | Center for | Yari Garcia MD | Medication | | 2017 | | Hematologic | [address] | Adjustment ([facility] [place]) | | | | Malignancies at | [address] | | | | | Christina Barry | [place], [place] | | | | | [address] | [address] | | | | | [address] Mailcode: | [phone] | | | | | [facility] | | | | | | [place], | | | | | | [place] [address] | | | | | | [phone] | | | +--------+ + + + [...] 2019 | Visit | Malignancy | [address] [facility] [address] | | | | | | [address] | | | | | | [place], [place] | | | | | | [address] | | | | | | [phone] | | | | | | | | +--------+---------+ + + + documented as of this encounter Visit Diagnoses Not on filedocumented in this encounter"
--- OUTSIDE RECORDS SUMMARY | ~2019-05-17 | XMS | Encounter Summary ---
Demographics + + + | Address | [address] | | | [place] [address] | + + + | Home Phone [...] Providers + +------+ + | Care Residential Monitor Name | Role | Phone | + +------+ + | No Pcp Per Patient | PCP | Unavailable | + +------+ + Encounter Details +--------+ + + + + | Date | Type | Department | Care Team | Description | +--------+ + + + + | 10/18/ | Hospital | Diagnostic | Lobo Jeffers, | | | 2017 | Encounter | Radiology at [facility] | [address] | | | | | [address] | [address] | | | | | Debi Burger Mailcode: | [place], [place] | | | | | [address] Physician's | [address] | | | | | [place], | [phone] | | | | | [place] [address] | | | | | | [phone] | | | +--------+ + + + [...] Visit | Malignancy | [address] [facility] | | | | | | [address] | | | | | | [place], [place] | | | | | | [address] | | | | | | [phone] | | | | | | | | +--------+---------+ + + + documented as of this encounter Procedures + +--------+ + + + | Procedure Name | Priori | Date/Time | Associated Diagnosis | Comments | | | ty | | | | + +--------+ + + + | X-RAY HIP 2 VIEWS | Routin | 10/18/2016 | Avascular necrosis | Results for this | | LEFT W/ PELVIS 1 | e | 10:06 AM | of bone of left hip | procedure are in the | | VIEW | | PDT | ([facility]) Status post | results section. | | | | | total replacement of | | | | | | left hip | | + +--------+ + + + [...] of left hip (HCC) | + + | Status post total replacement of left hip | + + documented in this encounter"
--- OUTSIDE RECORDS SUMMARY | ~2019-05-17 | XMS | Encounter Summary ---
Demographics + + + | Address | [address] | | | [place] [address] | + + + | Home Phone [...] Team Providers + +------+ + | Care Mothers Helper Name | Role | Phone | [...] | | myelomonocyt | [address] | [address] | | | | | ic leukemia, | [address] | [facility] | | | | | not having | [address] | [address] | | | | | achieved | [place], [place] | Rd Mailcode: | | | | | remission | [address] | [id number] | | | | | Procedures | Phone: | [place] | | | | | MS | [phone] | Pavilion | | | | | AZACITIDINE | Fax: | [place], [place] | | | | | INJECTION, 1 | [phone] | [address] | | | | | MG MS | | Phone: | | | | | CHM,IV | | [phone] | | | | | INFSN,1 HR | | Fax: | | | | | MS CHM,IV | | [phone] | | | | | INFSN,ADDL | [...] | | | | | | [facility] | | | | | | [place], | | | | | | [place] [address] | | | | | | [phone] | | | +--------+ + + + [...] declined Zofran and 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 Pre-medicati ons of Ativan 1 mg PO [...] to check out at the front end drupal developer prior to leaving the clinic. Patient [...] [address] | | | | | | [place], [place] | | | | | | [address] | | | | | | [phone] | | | | | | | [...] | | | | | ([facility])- primary | | | | | | induction failure | | + +--------+ + + + | CBC+DIFF,POC | Routin | 03/20/2016 | S/P allogeneic | Results for this | | | e | 8:44 AM | bone marrow | procedure are in the | | | | PDT | transplant ([facility]) | results section. 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[facility])- primary | | | | | [...] | | | PDT | ([facility])- primary | | | | | | induction failure | | + +--------+ + + + | TREATMENT PARAMETERS | Routin | 03/20/2016 | 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:20 AM | leukemia (AML), M4 | | | | | PDT | ([facility])- primary | | | | | | induction failure | | + +--------+ + + + | NURSING | Routin | 03/20/2016 | Acute myeloid | | | COMMUNICATION #3 - | e | 8:20 AM | leukemia (AML), M4 | | | BEACON | | PDT | ([facility])- primary | | | | | | induction failure | | + +--------+ + + + | NURSING | Routin | 03/20/2016 | Acute myeloid | | | COMMUNICATION #2 - | e | 8:20 AM | leukemia (AML), M4 | | | BEACON | | PDT | ([facility])- primary | | | | | | induction failure | | + +--------+ + + + | NURSING | Routin | 03/20/2016 | Acute myeloid | | | COMMUNICATION #1 - | e | 8:20 AM | leukemia (AML), M4 | | | BEACON | | PDT | ([facility])- primary | | | | | | induction failure | | + +--------+ + + + | TREATMENT PARAMETERS | Routin | 03/20/2016 | Acute myeloid | | | #1 - BEACON | e | 8:20 AM | leukemia (AML), M4 | | | | | PDT | ([facility])- primary | | | | | [...] [facility] | [address] | [place], [place] | | | RUTHIE CARTER OF KRISTA | [address] | [address] | | | TESTS | | | [...] MACARIO | [address] | [place], [place] | | | [facility] | [address] | [address] | | | TESTS | | | [...] + + + + | [facility] | [address] | [place] [address] | | | SERVICES, INDRA | [address] [...] 2 fold may not reflect true | [facility] | | biological changes and [...] | | | characteristics determined by the [facility] | | | Molecular Diagnostic Center. It has not been cleared or approved by | | | the Food and Drug Administration. FDA approval is not required for | | | clinical use of this test, and therefore validation was done as | | | required under the requirements of the Clinical Laboratory Improvement | | | Act of 1988. The [facility] | | | Diagnostic Center is a fully licensed and/or accredited clinical | | | laboratory under CLIA, CAP, and the [facility]. | | + + + + + + + + | Performing | Address | City/State/Zipcode | Phone Number | | Organization | | | | + + + + + | [facility] | [address] | [place] [address] | | | DIAGNOSTIC | [address] [...]
--- OUTSIDE RECORDS SUMMARY | ~2019-05-17 | XMS | Encounter Summary ---
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 | | teaching, guidance, | | | and counseling | | + + + | Medication actions | stop acyclovir, start valcyte 900 mg BID | + + + | X-ray | get chest xray today | + + + Encounter Details +--------+ + + + + | Date | Type | Department | Care Team | Description | +--------+ + + + + | 10/26/ | Telephone | Center for | Aspen Cummins FNP | Lab findings, | | 2016 | | Hematologic | [address] | teaching, guidance, | | | | Malignancies at [facility] | [address] | and counseling (CMV | | | | [address] | [place], [place] | positive with 1300 | | | | Debi Burger Mailcode: | [address] | ); Medication | | | | [facility] | [phone] | actions (stop | | | | [facility], | | acyclovir, start | | | | [place] [address] | | valcyte 900 mg BID); | | | | [phone] | | X-ray (get chest | | | | | | xray today) | +--------+ + + + + Social [...] Rd | | | | | | [place], [place] | | | | | | [address] | | | | | | [phone] | | | | | | | | +--------+---------+ + + + documented as of this encounter Visit Diagnoses Not on filedocumented in this encounter"
--- OUTSIDE RECORDS SUMMARY | ~2019-05-17 | XMS | Encounter Summary ---
Demographics + + + | Address | [address] | | | [place] [address] | + + + | Home Phone | | + + + | Preferred Language | Unknown | + + + | Marital Status | | + + + | Presybeterian Affiliation | SPI | + + + [...] Providers + +------+ + | Care Supervisor Drawing Name | Role | Phone | + [...] Description | +--------+--------+ + + + | 11/21/ | Refill | Center for | Wilian Plascencia, | Refill Request | | 2016 | | Hematologic | [place] [address] | | | | | Malignancies at [facility] | [address] | | | | | [address] | [place], [place] | | | | | Debi Burger Mailcode: | [address] | | | | | [facility] | [phone] | | | | | [place], | | | | | | [place] [address] | | | | | | [phone] | | | +--------+--------+ + + + [...] Rd | | | | | | [facility] | | | | | | [address] | | | | | | [phone] | | | | | | | | +--------+---------+ + + + documented as of this encounter Visit Diagnoses Not on filedocumented in this encounter"
--- OUTSIDE RECORDS SUMMARY | ~2019-05-17 | XMS | Encounter Summary ---
Demographics + + + | Address | [address] | | | [place] [address] | + + + | Home Phone [...] Team Providers + +------+ + | Care Packing Floor Worker Name | Role | Phone | [...] | 2015 | | Medical at [facility] | MD Joseph | | | | | Floor [address] | | | | | | [place] Mailcode: [id number] | | | | | | [facility] | | | | | | and Healing, | | | | | | | | | | | | Floor [place], [place] | | | | | | [address] | | | | | | [phone] | | | +--------+ + + + [...] Rd | | | | | | [place], [place] | | | | | | [address] | | | | | | [phone] | | | | | | | [...] early | | | | | | [id number]-[id number]-xfev | | | | | | disease. [...] [place] | | | | | | Pahni | | | | | | MDPathologistElectronica [...] [facility] | Mailcode CH[address], [address] | [place] [address] | | | DERMATOPATHOLOGY | [address] | | | + + + + + documented in this encounter Visit Diagnoses + + | Diagnosis | + + | Rash and other nonspecific skin eruption - Primary | + + documented in this encounter
--- OUTSIDE RECORDS SUMMARY | ~2019-05-17 | XMS | Encounter Summary ---
Demographics + + + | Address | [address] | | | [place] [address] | + + + | Home Phone [...] + + + | Author | [facility] | + + + | Organization | [facility] | + + + | Address | Unknown | + + + | Phone | Unavailable | + + + Support + + +---------+ + | Name | Relationship | Address | Phone | + + +---------+ + | Gabriel Kelly | ECON | Unknown | | + + +---------+ + Care Team Providers + +------+ + | Care Platform Supervisor Name | Role | Phone | [...] | | | | Christian Barry | [place], [place] | | | | | [address] | [address] | | | | | [address] Mailcode: | [phone] | | | | | [id number] | | | | | | [place], | | | | | | [place] [address] | | | | | | [phone] | | | +--------+ + + + [...] 2019 | Visit | Malignancy | [address] [facility] | | | | | | [address] | | | | | | [place] | | | | | | [address] | | | | | | [phone] | | | | | | | | +--------+---------+ + + + documented as of this encounter Visit Diagnoses Not on filedocumented in this encounter"
--- OUTSIDE RECORDS SUMMARY | ~2019-05-17 | XMS | Encounter Summary ---
Demographics + + + | Address | [address] | | | [place] [address] | + + + | Home Phone [...] Providers + +------+ + | Care Senior Research Project Manager Name | Role | Phone [...] | | | | | remission | [address] | [facility] | | | | | Procedures | Phone: | [place] | | | | | [place] | [phone] | Pavilion | | | | | AZACITIDINE | Fax: | [place], [place] | | | | | INJECTION, 1 | [phone] | [address] | | | | | [place] | | Phone: | | | | | CHM,IV | | [phone] | | | | | INFSN,1 HR | | Fax: | | | | | [place] [facility],IV | | [phone] | | | | | INFSN,ADDL | | | | | | | HR Vidaza | | | +--------+---------+ + + + + Encounter Details +--------+ + + + + | Date | Type | Department | Care Team | Description | +--------+ + + + + | 02/20/ | Clinical | Center for | | Lab Draw | | 2016 | Support | Hematologic | | (Trifusion); | | | Staff | Malignancies at MP | | Chemotherapy | | | | [address] | | (Vidaza) | | | | [place] Mailcode: | | | | | | [facility] | | | | | | [place], | | | | | | [place] [address] | | | | | | [phone] | | | +--------+ + + + [...] + + + | Blood Pressure | 142/88 | 02/21/2016 3:24 PM | | | | | PDT | | + + + + + | Pulse | 90 | 02/21/2016 3:24 PM | | | | | PDT | | + + + + + | Temperature | 37 C (98.6 F) | 02/21/2016 3:24 PM | | | | | PDT | | + + + + + | Respiratory Rate | 16 | 02/21/2016 3:24 PM | | | | | PDT | | + + + + + | Oxygen Saturation | 98% | 02/21/2016 3:24 PM | | | | | PDT | | + + + + + | Inhaled Oxygen | - | - | | | Concentration | | | | + + + + + | Weight | 92.8 kg (204 lb 9.4 | 02/21/2016 3:24 PM | | | | oz) | PDT | | + + + + + | Height | - | - | | + + + + + | Body Mass Index | 25.98 | 01/25/2016 8:24 AM | | | | | PDT | | + + + + + documented in this encounter Progress Lili Sosa RN - 03/23/2016 8:09 AM PDTVidaza completed at 1720.Electronically sig harris by Lili Murray RN at 03/23/2016 8:09 AM Lili Fay RN - 02/21/2016 3:55 PM PDT Chemotherapy Nurse Note Name: Khurram Navaleland Date: 02/21/2016 Physician: Jose Allergies: Khurram is allergic to chlorhexidine towelette. Nursing Assessment: Fever: no; Diarrhea: no; SOB / Cough: no; Nausea / Vomiting: yes - intermittent nausea but typically resolves on its own without medication. No emesis; Anemia / Fatigue: no; Constipat ion: no; Edema: no; S/S Bleeding: no; Mucositis: no; Urinary: no; Neuropathy: no; Rash: yes - resolving GVH rash. Per patient and his , it is much improved. Providers aware. Report s he is eating well and drinking at least 2 liters of fluids daily. Labs: Lab Results Component Value Date WBC 14.4* 02/21/2016 HB 11.5* 02/21/2016 HCT 35.2* 02/21/2016 PLT 186 02/21/2016 BUN 13 02/21/2016 CR 1.1 02/21/2016 For Treatment Done in Clinic Today: see MAR Narrative: Khurram is a [address] 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 He is receiving 6 cycles of Vidaza for disease at time of trans plant. He arrives to clinic ambulatory with his for Cycle 5 Day 1 of Vidaza. Patient bower d office visit with ORLY Yanes on 02/16/16 with plan to start chemotherapy today. Trifusion accessed per protocol. Good blood return noted. Appropriate waste discarded. L abs drawn and sent. Trifusion pulse flushed with 20 mL NS. Lab results reviewed. ORLY Giang notified of WBC of 14.4 and potassium of 5.2. No new orders obtained. Per sami Louise eed to send to [facility] today. Patient was premedicated with Zofran 8 mg. Chemotherapy was checked by 2 RNs. Vidaza 70 mg was infused per chemotherapy protocol and completed without adverse event. Positive blood return noted pre and post infusion. For infusion details, see MAR. Prior to D/C, all questions and concerns addressed. Chemotherapy precautions reviewed. Anabel ent was reminded to call clinic with temp > 100.4, chills, s/s of bleeding, uncontrolled N/V /D/C, symptoms of infection, inability to maintain PO intake or take medications. Patient ve rbalizes understanding. Patient was instructed to check out at the front end web designer prior to leavi ng the clinic. Patient d/c d ambulatory with his . Sapna Murray RN documented in this encounter [...] | | | | | | [place] [address] [place], [place] | | | | | | [address] | | | | | | [phone] | | | | | | | | +--------+---------+ + + + documented as of this encounter Procedures + +--------+ + + + | Procedure Name | Priori | Date/Time | Associated Diagnosis | Comments | | | ty | | | | + +--------+ + + + | CBC+DIFF,POC | Routin | 02/21/2016 | S/P allogeneic | Results for this | | | e | 3:40 PM | bone marrow | procedure are in the | | | | PDT | transplant (HCC) | results section. 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[facility])- primary | | | | | | induction failure | | + +--------+ + + + | BMP + MAG, POC CHM | Routin | 02/21/2016 | S/P allogeneic | Results for this | | | e | 3:38 PM | bone marrow | procedure are in the | | | | PDT | transplant (HCC) | results section. 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[facility])- primary | | | | | | induction failure | | + +--------+ + + + | CMV PCR | Routin | 02/21/2016 | S/P allogeneic | Results for this | | QUANTITATION, PLASMA | e | 3:15 PM | bone marrow | procedure are [...] + | LIVER SET | Urgent | 02/21/2016 | S/P allogeneic | Results for this | | (AST,ALT,BILI | | 3:15 PM | bone marrow | procedure are [...] + | TREATMENT PARAMETERS | Routin | 02/21/2016 | Acute myeloid | | | #2 - BEACON | e | 3:14 PM | leukemia (AML), 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 | | | | | | induction failure | | + +--------+ + + + | TREATMENT PARAMETERS | Routin | 02/21/2016 | Acute myeloid | | | #2 - BEACON | e | 3:14 PM | leukemia (AML), 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 | | | | | | induction failure | | + +--------+ + + + | TREATMENT PARAMETERS | Routin | 02/21/2016 | Acute myeloid | | | #2 - BEACON | e | 3:14 PM | leukemia (AML), 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 | | | | | | induction failure | | + +--------+ + + + | TREATMENT PARAMETERS | Routin | 02/21/2016 | Acute myeloid | | | #2 - BEACON | e | 3:14 PM | leukemia (AML), 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 | | | | | | induction failure | | + +--------+ + + + | TREATMENT PARAMETERS | Routin | 02/21/2016 | Acute myeloid | | | #2 - BEACON | e | 3:14 PM | leukemia (AML), M4 | | | | | PDT | ([facility])- primary | | | | | | induction failure | | + +--------+ + + + | NURSING | Routin | 02/21/2016 | Acute myeloid | | | COMMUNICATION #3 - | e | 3:14 PM | leukemia (AML), M4 | | | [facility] | | PDT | ([facility])- primary | | | | | | induction failure | | + +--------+ + + + | NURSING | Routin | 02/21/2016 | Acute myeloid | | | COMMUNICATION #2 - | e | 3:14 PM | leukemia (AML), M4 | | | [facility] | | PDT | ([facility])- primary | | | | | | induction failure | | + +--------+ + + + | NURSING | Routin | 02/21/2016 | Acute myeloid | | | COMMUNICATION #1 - | e | 3:14 PM | leukemia (AML), M4 | | | [facility] | | PDT | ([facility])- primary | | | | | | induction failure | | + +--------+ + + + | TREATMENT PARAMETERS | Routin | 02/21/2016 | Acute myeloid | | | #1 - BEACON | e | 3:14 PM | leukemia (AML), M4 | | | | | PDT | ([facility])- primary | | | | | | induction failure | | + +--------+ + + + | TREATMENT PARAMETERS | Routin | 02/21/2016 | Acute myeloid | | | #1 - BEACON | e | 3:14 PM | leukemia (AML), M4 | | | | | PDT | ([facility])- primary | | | | | | induction failure | | + +--------+ + + + documented in this encounter Results INGRID+VALENTINEPOC (02/21/2016 3:40 PM PDT) + + + + + + | Component | Value | Ref Range | Performed | Pathologist | | | | | At | Signature | + + + + + + | WBC POC | 14.4 (H) | 4.4 - 11.0 | [facility] - | | | | | 10*3/uL | [facility] | | | | | | [facility], POINT | | | | | | OF CARE | | | | | | TESTS | | + + + + + + | RBC POC | 3.28 (L) | 4.50 - 6.00 | [facility] [...] + + + | HCT POC | 35.2 (L) | 41.0 - 53.0 % | [facility] - | | | | | | [place] | | | | | | [facility] POINT | | | | | | OF CARE | | | | | | TESTS | | + + + + + + | MCV POC | 107.3 (H) | 80.0 - 96.0 fL | [facility] - | | | | | | [place] | | | | | | [facility] POINT | | | | | | OF CARE | | | | | | TESTS | | + + + + + + | MCH POC | 35.1 (H) | 28.5 - 32.3 pg | [facility] - | | | | | | [place] | | | | | | [facility] POINT | | | | | | OF CARE | | | | | | TESTS | | + + + + + + | MCHC POC | 32.7 | 33.0 - 35.5 | [facility] - | | | | | g/dL | [place] | | | | | | [facility] POINT | | | | | | OF CARE | | | | | | TESTS | | + + + + + + | RDW SD, POC | 51.1 (H) | 35.1 - 46.3 fL | [facility] - | | | | | | [place] | | | | | | [facility] POINT | | | | | | OF CARE | | | | | | TESTS | | + + + + + + | PLT POC | 186 | 150 - 400 | [facility] - [...] + + + + | NEUTROPHIL% | 78.2 (H) | 50.0 - 70.0 % | [...] + + + + | NEUTROPHIL# | 11.3 (H) | 1.8 - 7.7 | [facility] [...] + + + | YESSICA SORTO | [address] | [place], [place] | | | RUTHIE CARTER OF KRISTA | [address] | [address] | | | TESTS | | | | + + + + + BMP + MAG, POC CHM (02/21/2016 3:38 PM PDT) + +---------+ + + + [...] +---------+ + + + | POTASSIUM, | 5.2 (H) | 3.4 - 5.0 | [facility] [...] + + + | LDH, POC | 443 (H) | 0 - 206 U/L | [...] + + + + + | YESSICA SOROT | [address] | [place], [place] | | | [facility] POINT OF CARE | [address] | [address] | | | TESTS | | | | + + + + + LIVER SET (AST,ALT,BILI TOTAL,BILI DIRECT,ALK PHOS,ALB,PROT TOTAL) (02/21/2016 3:15 PM PDT ) + +---------+ + + [...] + + + | ALK PHOS | 143 (H) | 53 - 128 U/L | [facility] | | | | | | LABORATORY | | | | | | SERVICES, | | | | | | CORE | | + +---------+ + + + | AST(SGOT) | 149 (H) | <=41 U/L | [facility] | | | | | | LABORATORY | | | | | | SERVICES, | | | | | | CORE | | + +---------+ + + + | ALT (SGPT) | 264 (H) | <=60 U/L | [facility] | [...] [facility] | [address] | [place] [address] | | | INDRA SHARIF | [address] | | | + + + + + CMV PCR QUANTITATION, PLASMA (02/21/2016 3:15 PM PDT) + + + + + [...] 2 fold may not reflect true | [facility] | | biological changes and must [...] + + + | SHAN | [address] | [place] [address] | | | DIAGNOSTIC | [address] [...] 70 mg in | New Bag | 02/21/20 | 70 mg | 214 | | | NaCl 0.9 % IV 70 mg (rounded | | 16 4:49 | | mL/hr | | | from 67.84 mg = 32 mg/m2 | | PM PDT | | | | | 2.12 m2 Treatment plan recorded | | | | | | | BSA), intravenous, Administer | | | | | | | over 30 Minutes, ONCE, 1 dose, | | | | | | | 02/21/16 at 1600, HIGH RISK | | | | | | | MEDICATION-CHEMOTHERAPY | | | | | | | Administration must be completed | | | | | | | within 1 hour of preparation., | | | | | | + +---------+ +-------+-------+------+ +---+---+ | | | +---+---+ + +-------+ +------+---+---+ | ondansetron (ZOFRAN) tablet 8 | Given | 02/21/20 | 8 mg | | | | mg 8 mg, oral, ONCE, 1 dose, Sun | | 16 3:55 | | | | | 02/21/16 at 1600 | | PM PDT | | | | + +-------+ +------+---+---+ +---+---+ | | | +---+---+ documented in this encounter"
--- OUTSIDE RECORDS SUMMARY | ~2019-05-17 | XMS | Encounter Summary ---
Demographics + + + | Address | [address] | | | [place] [address] | + + + | Home Phone [...] Providers + +------+ + | Care Utility Forester Name | Role | Phone | + [...] | | | | | achieved | [place], [place] | [id number] | | | | | remission | [address] | [facility] | | | | | | Phone: | Pavilion | | | | | Procedures | [phone] | [place], [place] | | | | | Post BMT | Fax: | [address] | | | | | Auth to | [phone] | Phone: | | | | | included | | [phone] | | | | | facility, | | Fax: | | | | | diagnostics, | | [phone] | | | | | office | [...] 2017 | Visit | Hematologic | [address] [facility] | marrow transplant | | | | Malignancies at | [place] [facility] | (HCC) (Primary Dx) | | | | [facility] | [place], [place] | | | | | [address] | [address] | | | | | [address] Mailcode: | [phone] | | | | | [facility] | | | | | | Pavilion [place], | | | | | | [place] [address] | | | | | | [phone] | | | +--------+---------+ + + + [...] without iron 2. Calcium intake should be 4895-9167 mg daily (not to exceed 2000 mg [...] Donor: MMURD (DPB1 permissive antigen mismatch, male, [id number]) Identifying Data: Khurram Kelly is a 26 [...] his L ankle. 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 Has been using [...] 0.5 mL intramuscular ON CE Aspen Cummins, NEWSPAPER CORRESPONDENT hepatitis A-hepatitis B vaccine (TWINRIX) injection 1 mL 1 mL intramuscular ONCE , NEWSPAPER CORRESPONDENT human papillomavirus vaccine (9-valent) (GARDASIL 9) injection 0.5 mL 0.5 mL intramusc ular ONCE , NEWSPAPER CORRESPONDENT poliovirus vaccine (inactivated) (IPOL) injection 0.5 mL 0.5 mL subcutaneous ONCE a n , NEWSPAPER CORRESPONDENT tetanus-diphtheria toxoids (adult) (TENIVAC,DECAVAC,Td) injection 0.5 mL 0.5 mL intram uscular ONCE , NEWSPAPER CORRESPONDENT No Known Allergies Filed Vitals: 04/19/2017 11:01 [...] indicated providing peripheral counts remain stable 2. 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 He initially responded but flared during taper. He also developed low-level nausea and abd discomfort concerning for GvHD, emp irically treated with oral non-absorbables with resolution. - He had tapered prednisone to 10 mg po daily when he developed a rash for which he was see n in the ED in [place] in late 01/21. Prednisone was increased back [...] Dr. Jeffers on 04/02/17; per pt report, thoug ht there may be a hairline fracture causing his pain. Required a cane for ambulation and un able to weight bear until a few days ago. Now asymptomatic. No longer requiring analgesics. --> continue to f/u with Dr. Jeffers per his recommendations 6. Psychosocial: Hx anxiety, well controlled with current xanax dosing. Back in [facility] n now, different set of life stressors [...] ORLY Yanes [facility] AT [address] Mailcode: [place] [address] documented in this enc ounter [...] Rd | | | | | | [place], [place] | | | | | | [address] | | | | | | [phone] | | | | | | | [...] 3.6 | 3.5 - 4.7 g/dL | [facility] - | | | CMP POC | | | [facility] | | | | | | [facility] POINT | | | | | | OF CARE | | | | | | TESTS | | + +---------+ + + + | PROTEIN | 6.7 | 6.1 - 7.9 g/dL | [facility] - | | | TOTAL, CMP | [...] ABELARDOAM | [address] | [place], [place] | | | RUTHIE CARTER OF KRISTA | [facility] | [address] | | | TESTS | | | [...] SORTO | [address] | [place], [place] | | | RUTHIE CARTER OF KRISTA | [address] | [address] | | | TESTS | | | [...] | + + + + + | [facility] | [address] | [place] [address] | | | SERVICES, CORE | [address] | | | + + + + + SPIROMETRY, PULM FUNCTION LAB (05/24/2017 9:26 AM PST) + + + + + + | Component | Value | Ref Range | Performed | Pathologist | | | | | At | Signature | + + + + + + | PULMONARY | Site: [facility] and | | [facility] | | | INTERPRETAT | [facility], [address] | | SPECIAL | | | [address] | [address] | | DIAGNOSTICS | | | | [address],[place], [place], | | - | | | | [address]NA: [id number] | | PULMONARY | | | | Name: RAZA, | | FUNCTION | | | | KHURRAM Diait | | | | | | Date: 05/24/2017 | | | | | | Second ID: | | | | | | [id number]: | | | | | | Adarsh [...] | | | | | | 7.23 [id number] (L) | | | | | | | | | | | | 5.06 5.50 | | | | | | [id number]/FVC (%) | | | | | | [...] + + + + + + | TPY91-81% | 4.74 | 5.02 L/sec | [facility] | | | PRE | | | SPECIAL | | | | | | DIAGNOSTICS | | | | | | - | | | | | | PULMONARY | | | | | | FUNCTION | | + + + + + + | FRI17-96% | 94 | % | [facility] | [...] YESSICA HARPER | [address] | [place], [place] | | | DIAGNOSTICS - | [address] | [address] | | | PULMONARY FUNCTION | | [...] - [facility] | [address] | [place], [place] | | | [facility] POINT OF CARE | [address] | [address] | | | TESTS | | | [...] | Test performed by immunoassay using [employer] i2000. . | [facility] | | Samples [...] | + + + + + | [facility] | [address] | [place] [address] | | | SERVICES, SPECIAL | PARK [...] YESSICA LOZA | [address] | [place] [address] | | | SERVICES, CORE | [address] | | | + + + + + documented in this encounter Visit Diagnoses + + | Diagnosis | + + | 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
--- OUTSIDE RECORDS SUMMARY | ~2019-05-17 | XMS | Encounter Summary ---
Demographics + + + | Address | [address] | | | [place] [address] | + + + | Home Phone [...] Team Providers + +------+ + | Care Correctional Officer Chief Name | Role | Phone | + +------+ + | Zayda Hinton | PCP | | + +------+ + Encounter Details +--------+ + + + + | Date | Type | Department | Care Team | Description | +--------+ + + + + | 10/17/ | Pharmacy | Specialty Pharmacy | | | | 2016 | Visit | Services [address] | | | | | [address] | | | | | | [place], [place] | | | | | | [address] | | | | | | [phone] | | | +--------+ + + + [...] Rd | | | | | | [place], [place] | | | | | | [address] | | | | | | [phone] | | | | | | | | +--------+---------+ + + + documented as of this encounter Visit Diagnoses Not on filedocumented in this encounter"
--- OUTSIDE RECORDS SUMMARY | ~2019-05-17 | XMS | Encounter Summary ---
Demographics + + + | Address | [address] | | | [place] [address] | + + + | Home Phone [...] Team Providers + +------+ + | Care Zinc Plate Cutter Name | Role | Phone | + +------+ + | Zayda Hinton | PCP | | + +------+ + Encounter Details +--------+ + + + + | Date | Type | Department | Care Team | Description | +--------+ + + + + | 12/23/ | Telephone | Orthopaedics at | Lobo Jeffers, | | | 2019 | | [facility] [address] | [address] | | | | | [place] Mailcode: [id number] | [address] | | | | | [facility] | [place], [place] | | | | | and [place], | [address] | | | | | [facility] | [phone] | | | | | Floor [place], [place] | | | | | | [address] | | | | | | [phone] | | | +--------+ + + + [...] Rd | | | | | | [place], [place] | | | | | | [address] | | | | | | [phone] | | | | | | | | +--------+---------+ + + + documented as of this encounter Visit Diagnoses Not on filedocumented in this encounter"
--- OUTSIDE RECORDS SUMMARY | ~2019-05-17 | XMS | Encounter Summary ---
Demographics + + + | Address | [address] | | | [place] [address] | + + + | Home Phone [...] Team Providers + +------+ + | Care Digital Marketing Program Manager Name | Role | Phone | [...] | | | | | achieved | [place] [place] | [facility] | | | | | remission | [address] | [facility] | | | | | | Phone: | Pavilion | | | | | Procedures | [phone] | [place], [place] | | | | | Post BMT | Fax: | [address] | | | | | Auth to | [phone] | Phone: | | | | | included | | [phone] | | | | | facility, | | Fax: | | | | | diagnostics, | | [phone] | | | | | office | [...] | Visit | Hematologic | PA-C [address] [facility] | leukemia (AML), M4 | | | | Malignancies at | [facility] [address] | ([facility])- primary | | | | [facility] | [place], [place] | induction failure | | | | [address] [facility] | [address] | (Primary Dx); S/P | | | | [address] Mailcode: | [phone] | allogeneic bone | | | | [facility] | | marrow transplant | | | | [facility] [place], | | ([facility]) | | | | [place] [address] | | | | | | [phone] | | | +--------+---------+ + + + [...] A prescription has been sent to the [facility] pharmacy. -Start taking Budesonide 3 mg capsule three times daily. This is for GvHD lower gut symptom s. A prescription has been sent to the [facility] pharmacy. -The Beclomethasone and Budesonide are likely [...] A prescription has been sent to the [facility] pharmac y. documented in this encounter Progress Notes Em Saunders PA-C - 10/07/2015 8:55 AM PDTFormatting of this note might be different f rom the original. 10/07/2015 [facility] Physician: Yari Garcia MD Local Oncologist: Yari Garcia MD PCP: Pending Pcp ADDITION Hematologic Malignancy: Primary refractory AML Conditioning regimen: tBuCy Date of transplant: 08/27/2015 (two day 0s) Donor: MM URD (DPB1 permissive antigen mismatch, male, [id number]) Hematologic History: Khurram Kelly is a 25 [...] his L ankle. He was evaluated at [facility] ED on 06/[address] angiogram negative [...] acute myelomonocytic leukemia. He was referred to [facility] for further evaluation and man agement of his newly dx'd AML. Pt was admitted to [facility] on 05/26/15. Peripheral blood [...] CD34, variable CD56, variable CD117, and dim YK335-ajian mickey; promonocyte immunophenotype (70% by flow): CD11b, [...] eruption of lymphocyte recovery and early mild vyktv-mpmwvd-aqem disease. On 09/13, rash in volved ~15% [...] Saunders PA-C [facility] AT [address] Mailcode: [place] [phone] documented in this encounter Plan of Treatment [...] Rd | | | | | | [place], [place] | | | | | | [address] | | | | | | [phone] | | | | | | | [...] - [facility] | [address] | [place], [place] | | | RUTHIE CARTER OF CARE | [facility] | [address] | | | TESTS | | | [...] [facility] | [address] | [place], [place] | | | RUTHIE CARTER OF KRISTA | [address] | [address] | | | TESTS | | | [...] + + | [facility] | [address] | [place] [address] | | | SERVICES, CORE | PARK [...] | + + + + + | [facility] | [address] | [place] [address] | | | SERVICES, CORE | [address] [...] + + | [facility] | [address] [facility] | [place] [address] | | | SERVICES, SPECIAL | [address] [...] 2 fold may not reflect true | [facility] | | biological changes and must be [...] | | characteristics determined by the [facility] | | | Molecular Diagnostic Center. It has not been cleared or approved by | | | the Food and Drug Administration. FDA approval is not required for | | | clinical use of this test, and therefore validation was done as | | | required under the requirements of the Clinical Laboratory Improvement | | | Act of 1988. The [facility] Molecular | | | Diagnostic Center is a fully licensed and/or accredited clinical | | | laboratory under CLIA, CAP, and the [facility]. | | + + + + + + + + | Performing | Address | City/State/[facility] Cent[facility] | Phone Number | | Organization | | | | + + + + + | [facility] | [address] | [place] [address] | | | DIAGNOSTIC | [address] [...] [facility] | [address] | [place] [address] | | | SERVICES, SPECIAL | PARK [...]
--- OUTSIDE RECORDS SUMMARY | ~2019-05-17 | XMS | Encounter Summary ---
Demographics + + + | Address | [address] | | | [place] [address] | + + + | Home Phone [...] Team Providers + +------+ + | Care Real Estate Portfolio Manager Name | Role | Phone | [...] | | | | | | [place], | | | | | | | [place] | | | | | | | [address] | | | | | | | Phone: | | | | | | | [phone] | | | | | | | Fax: | | | | | | | [phone] | +--------+--------+ + + + + Encounter Details +--------+---------+ + + + | Date | Type | Department | Care Team | Description | +--------+---------+ + + + | 12/15/ | Office | Center for | Aspen Cummins FNP | S/P allogeneic bone | | 2016 | Visit | Hematologic | [address] | marrow transplant | | | | Malignancies at | [address] | (HCC) (Primary Dx) | | | | [facility] | [place], [place] | | | | | [address] | [address] | | | | | Debi Burger Mailcode: | [phone] | | | | | [facility] [place] | | | | | | [place], | | | | | | [place] [address] | | | | | | [phone] | | | +--------+---------+ + + + [...] | Blood Pressure | 136/91 | 12/16/2015 10:34 AM | | | | | PDT | | + + + + + | Pulse | 99 | 12/16/2015 10:34 AM | | | | | PDT | | + + + + + | Temperature | 36.7 C (98.1 F) | 12/16/2015 10:34 AM | | | | | PDT | | + + + + + | Respiratory Rate | 16 | 12/16/2015 10:34 AM | | | | | PDT | | + + + + + | Oxygen Saturation | 99% | 12/16/2015 10:34 AM | | | | | PDT | | + + + + + | Inhaled Oxygen | - | - | | | Concentration | | | | + + + + + | Weight | 85.8 kg (189 lb 2.5 | 12/16/2015 10:34 AM | | | | oz) | PDT | | + + + + + | Height | - | - | | + + + + + | Body Mass Index | 24.45 | 08/18/2015 4:35 PM | | | | | PST | | + + + + + documented in this encounter Patient Instructions Patient Instructions Aspen Cummins FNP - 12/16/2015 10:58 AM PDT1. Change tacrolimus to 1 mg by mouth every other morning alternating with 0.5 mg by mouth every other morning; vinny nue 0.5 mg by mouth every evening 2. Stop valganciclovir 3. Restart acyclovir 800 mg by mouth twice daily 4. Increase magnesium to 3 tablets by mouth twice daily 5. I'll cancel your appointments here on Sunday 6. Return to clinic to follow up with me on , 12/23/15 or sooner as needed.Susannah greenwood signed by ORLY Yanes at 12/16/2015 11:03 AM PDT documented in this encounter Progress Notes Aspen Cummins FNP - 12/16/2015 7:30 AM PDT 12/16/2015 [facility] Primary [facility] MD: Yari Garcia MD Primary Oncologist: Yari Garcia MD Diagnosis: AMML, primary refractory Transplant Date: 08/27/15 Donor: MM URD (DPB1 permissive antigen mismatch, male, [id number]) Identifying Data: Khurram Kelly is a 25 [...] his L ankle. He was evaluated at [facility] ED on 06/[address] angiogram negative [...] myelomonocytic leukemia. He was referred to [facility] for further evaluation and man agement of his newly dx'd AML. Pt was admitted to [facility] on 05/26/15. Peripheral blood was [...] CD34, variable CD56, variable CD117, and dim [id number] mickey; promonocyte immunophenotype (70% by flow): CD11b, [...] durin g taper. He is currently day +111 s/p transplant, day 18, c2 of azacitidine and returns to clinic to day for scheduled follow-up. Interim History: Khurram was most recently evaluated in [facility] by Yari Garcia MD on 12/07/15. He is feeling well today. Notes mild intermitte nt nausea after azacitidine, however frequency of episodes decreasing. Well controlled with prn zofran. Feels he's eating well, adequate po fluid intake. Rash mainly resolved. Active at home, trying to walk every day to rebuild strength and stamina. Review of Systems Constitutional: Negative for fever, chills and malaise/fatigue. HENT: Negative for headaches, congestion and sore throat. Respiratory: Negative for cough and shortness of breath. Cardiovascular: Negative for chest pain and leg swelling. Gastrointestinal: Positive for nausea. Negative for vomiting, abdominal pain and diarrhea. Genitourinary: Negative for dysuria. Musculoskeletal: Negative for myalgias, joint pain and falls. Skin: Negative for rash. Neurological: [...] capsule Take 1 mg by mouth every other morning alternating with 0.5 mg by mouth every other morning; continue 0.5 mg by mouth every evening tacrolimus 1 mg oral capsule Take 1 mg by mouth every other morning alternating with 0. 5 mg by mouth every other morning; continue 0.5 mg by mouth every evening Indications: GVHD prevention No current facility-administered medications for this visit. Allergies Allergen Reactions Chlorhexidine Towelette Rash PAVAN cloths - ok to use Chloraprep for dresssing change per pt. Filed Vitals: 12/16/2015 10:34 AM Weight: 85.8 kg (189 lb 2.5 oz) BP: 136/91 Pulse: 99 Temp: 36.7 C (98.1 F) TempSrc: Oral Resp: 16 SpO2: 99% PainSc: 0 - Zero BMI: 24.46 kg/(m^2) Physical Exam Constitutional: He is well-developed, [...] reviewed. Lab Results Component Value Date WBC 5.0 12/16/2015 HB 13.4 12/16/2015 HCT 38.4 12/16/2015 PLT 39 12/16/2015 MCV 101.6 12/16/2015 RDW 60.3 11/22/2015 Lab Results Component Value Date BICARB 26 12/16/2015 TBILI 0.2* 12/16/2015 CA 9.6 12/16/2015 CL 103 12/16/2015 CR 0.9 12/16/2015 GLU 121* 12/16/2015 AP 62 12/16/2015 TP 7.2 12/16/2015 BUN 16 12/16/2015 ALB 3.9 12/16/2015 AST 42* 12/16/2015 NA 140 12/16/2015 K 4.1 12/16/2015 ALT 109* 12/16/2015 Assessment/Plan: 1. Hematology: Khurram Kelly is currently day +111 s/p tBuCy-conditioned unrel ated donor PBSC transplant [...] maintenance azacitidine on 11/01/15, currently c2, day 18 . Peripheral blood counts recovering post-chemo; no blood products are required today. --> decrease CBC to weekly --> c3 azacitidine scheduled to begin 12/27/15 [32 mg/m2 IV daily x 5 days] 2. Nnpuj-ie-Sflh Disease: Skin bx due to mild rash [...] prednisone to 10 mg po daily and continues therapeutic tacrolimus. No s/s active GvHD noted at this time. --> begin tacrolimus taper; decrease to 1 mg po qoAM alt with 0.5 mg po qoAM; continue 0.5 mg po qPM --> continue oral non-absorbables --> no change in steroid dosing today 3. Infectious Disease: Afebrile without localizing s/s infection. He continues prophylactic posaconazole and bactrim along with valganciclovir due to CMV reactivation. His most recent CMV PCR on 12/13/15 was undetected. His most recent serum IgG level on 12/13/15 was adequate at 514. Immune reconstitution panel collected 11/22/15 showed normal total T cells with increas ed CD8+ T cell subsets, normal total NK cells, decreased B cells with decreased margarita B augie ls and minimal immune activation with CD4 count 385. --> d/c valganciclovir --> restart acyclovir 800 mg po BID --> due to CMV reactivation prior to day +100, monitor PCRs weekly through day +180, then q oweek through day +270 --> d/c IgG monitoring as pt now > day +100 --> hold post-transplant vaccines until azacitidine maintenance completed Lab Results Component Value Date CMVQUANTPCR Undetected 12/13/2015 CMVQUANTPCR Undetected 12/07/2015 CMVQUANTPCR Undetected 11/22/2015 CMVQUANTPCR Weak Positive* 11/15/2015 4. Fluid, Electrolyte and Nutrition: Intermittent nausea continues after azacitidine, well controlled with prn antiemetics. Eating well with adequate po fluid intake. His electrolyte s are reviewed and are within acceptable limits. --> continue a well balanced diet --> maintain hydration --> increase Mg+Pro to 399 mg po BID; hold for loose stools 5. Cardiovascular: Pretransplant TTE completed 08/10/15 showed a LVEF of 55-60%. CNI-induced HTN. Intermittent HTN persists. --> continue current medications --> anticipate HTN will improve as tacrolimus tapers 6. Psychosocial: Hx depression. Trialed zoloft but felt he was more withdrawn with this med ication. Notes intermittent anxiety, insomnia. Symptoms well controlled with xanax prn, destinee fajardoine qhs. --> continue current meds 7. Follow up --> RTC to f/u with me on , 12/23/15, sooner prn ORLY Yanes [facility] [address] Mailcode: [place] [address] documented in this enc ounter [...] | 2018 | Visit | Malignancy | [facility] | | | | | | [facility] | | | | | | [place], [place] | | | | | | [address] | | | | | | [phone] | | | | | | | | +--------+---------+ + + + documented as of this encounter Visit Diagnoses + + | Diagnosis | + + | 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
--- OUTSIDE RECORDS SUMMARY | ~2019-05-17 | XMS | Encounter Summary ---
Demographics + + + | Address | [address] | | | [place] [address] | + + + | Home Phone [...] Team Providers + +------+ + | Care Mobile Nurse Name | Role | Phone | + +------+ + | Zayda Hinton | PCP | | + +------+ + Encounter Details +--------+ + + + + | Date | Type | Department | Care Team | Description | +--------+ + + + + | 08/22/ | Pharmacy | Specialty Pharmacy | | | | 2016 | Visit | Services [address] | | | | | | [address] | | | | | | [place], [place] | | | | | | [address] | | | | | | [phone] | | | +--------+ + + + [...] Rd | | | | | | [place], [place] | | | | | | [address] | | | | | | [phone] | | | | | | | | +--------+---------+ + + + documented as of this encounter Visit Diagnoses Not on filedocumented in this encounter"
--- OUTSIDE RECORDS SUMMARY | ~2019-05-17 | XMS | Encounter Summary ---
Demographics + + + | Address | [address] | | | [place] [address] | + + + | Home Phone [...] | Vidaza | + + + | Dressing change | Trifusion | + + + Chemotherapy (Routine) +--------+---------+ [...] | | myelomonocyt | [address] | | | | | ic leukemia, | [facility] | [facility] | | | | | not having | [address] | [address] | | | | | achieved | [place], [place] | Rd Mailcode: | | | | | remission | [address] | [id number] | | | | | Procedures | Phone: | [place] | | | | | [place] | [phone] | Pavilion | | | | | AZACITIDINE | Fax: | [place], [place] | | | | | INJECTION, 1 | [phone] | [address] | | | | | [place] | | Phone: | | | | | CHM,IV | | [phone] | | | | | INFSN,1 HR | | Fax: | | | | | [place] [facility],IV | | [phone] | | | | | INFSN,ADDL | | | | | | | HR Vidaza | | | +--------+---------+ + + + + Encounter Details +--------+ + + + + | Date | Type | Department | Care Team | Description | +--------+ + + + + | 02/23/ | Clinical | Center for | | Lab Draw | | 2016 | Support | Hematologic | | (Trifusion); | | | Staff | [facility] at [facility] | | Chemotherapy | | | | [address] | | (Vidaza); Dressing | | | | [address] Mailcode: | | change (Trifusion) | | | | [facility] [place] | | | | | | [place], | | | | | | [place] [address] | | | | | | [phone] | | | +--------+ + + + [...] + + + | Blood Pressure | 140/89 | 02/24/2016 3:49 PM | | | | | PDT | | + + + + + | Pulse | 83 | 02/24/2016 3:49 PM | | | | | PDT | | + + + + + | Temperature | 36.8 C (98.3 F) | 02/24/2016 3:49 PM | | | | | PDT | | + + + + + | Respiratory Rate | 20 | 02/24/2016 3:49 PM | | | | | PDT | | + + + + + | Oxygen Saturation | 96% | 02/24/2016 3:49 PM | | | | | PDT | | + + + + + | Inhaled Oxygen | - | - | | | Concentration | | | | + + + + + | Weight | 94.4 kg (208 lb 1.8 | 02/24/2016 3:49 PM | | | | oz) | PDT | | + + + + + | Height | - | - | | + + + + + | Body Mass Index | 26.43 | 01/25/2016 8:24 AM | | | | | PDT | | + + + + + documented in this encounter Progress Honey Murray Lili RN - 02/24/2016 4:05 PM PDT Chemotherapy Nurse Note Name: Khurram Gambleliat Date: 02/21/2016 Physician: Jose Allergies: Khurram is allergic to chlorhexidine towelette. Nursing Assessment: Khurram reports no new concerns or changes since yesterday's visit. Only complaints of int ermittent nausea, controlled, and resolving GVH rash. Reports he is eating well and drinking at least 2 liters of fluids daily. Labs: Lab Results Component Value Date WBC 12.8* 02/23/2016 HB 11.9* 02/23/2016 HCT 34.6* 02/23/2016 PLT 175 02/23/2016 BUN 13 02/23/2016 CR 0.7 02/23/2016 For Treatment Done in Clinic Today: see MAR Narrative: Khurram is a [address] 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 He is receiving 6 cycles of Vidaza for disease at time of trans plant. He arrives to clinic ambulatory with his for Cycle 5 Day 4 of Vidaza. ORLY Yanes notified that today's BSA is up by 5.2% from chemo plan, and weight is up by 9.6% from chemo plan. Dose is still within 5% however. OK to proceed with chemotherapy t silvana per Aspen. No labs indicated today. Labs were drawn yesterday. Patient was premedicated with Zofran 8 mg. Chemotherapy was checked by 2 RNs. Vidaza 70 mg was infused per chemotfrederic kearney protocol and completed without adverse event. Positive blood return noted pre and post infusion. For infusion details, see MAR. Dressing was non-occlusive. Neostar intact to left anterior chest wall without erythema or induration. Dressing removed, skin intact without s/s exit site or tunnel infection. Using a Central Line Dressing Change kit, site cleansed with Chloraprep. Skin prep applied prior to dressing application. Biopatch applied with SorbaView dressing. Positive pressure dimas ves changed to each port. All lumens pulse flushed with 10 mL NS. Patient tolerated procedu re without difficulty. Prior to D/C, all questions and concerns addressed. Chemotherapy precautions reviewed. Anabel ent was reminded to call clinic with temp > 100.4, chills, s/s of bleeding, uncontrolled N/V /D/C, symptoms of infection, inability to maintain PO intake or take medications. Patient ve rbalizes understanding. Patient was instructed to check out at the java front end web developer prior to leavi ng the clinic. Patient d/c d ambulatory with his . Sapna Trevor RN documented in this encounter Plan of [...] 2018 | Visit | Malignancy | [address] [facility] | | | | | | [address] | | | | | | [place], [place] | | | | | | [address] | | | | | | [phone] | | | | | | | [...] 70 mg in | New Bag | 02/24/20 | 70 mg | 214 | Central | | NaCl 0.9 % IV 70 mg (rounded | | 16 4:40 | | mL/hr | Line | | from 67.84 mg = 32 mg/m2 | | PM PDT | | | | | 2.12 m2 Treatment plan recorded | | | | | | | BSA), intravenous, Administer | | | | | | | over 30 Minutes, ONCE, 1 dose, | | | | | | | Lupe 02/24/16 at 1600, HIGH RISK | | | | | | | MEDICATION-CHEMOTHERAPY | | | | | | | Administration must be completed | | | | | | | within 1 hour of preparation., | | | | | | + +---------+ +-------+-------+ + +---+---+ | | | +---+---+ + +-------+ +------+---+---+ | ondansetron (ZOFRAN) tablet 8 | Given | 02/24/20 | 8 mg | | | | mg 8 mg, oral, ONCE, 1 dose, Lupe | | 16 4:01 | | | | | 02/24/16 at 1600 | | PM PDT | | | | + +-------+ +------+---+---+ +---+---+ | | | +---+---+ documented in this encounter"
--- OUTSIDE RECORDS SUMMARY | ~2019-05-17 | XMS | Encounter Summary ---
Demographics + + + | Address | [address] | | | [place] [address] | + + + | Home Phone [...] Team Providers + +------+ + | Care Pony Cylinder Press Operator Name | Role | Phone [...] | 2017 | | Hematologic | [address] [facility] | | | | | Malignancies at | [address] | | | | | [address] | [place], [place] | | | | | [address] | [address] | | | | | [address] Mailcode: | [phone] | | | | | [facility] [address] | | | | | | [place], | | | | | | [place] [address] | | | | | | [phone] | | | +--------+--------+ + + + [...] Rd | | | | | | [place] | | | | | | [address] | | | | | | [phone] | | | | | | | | +--------+---------+ + + + documented as of this encounter Visit Diagnoses Not on filedocumented in this encounter"
--- OUTSIDE RECORDS SUMMARY | ~2019-05-17 | XMS | Encounter Summary ---
Demographics + + + | Address | [address] | | | [place] [address] | + + + | Home Phone [...] Team Providers + +------+ + | Care Occupational Health And Safety Manager Name | Role | Phone | + +------+ + | Zayda Hinton | PCP | | + +------+ + Encounter Details +--------+ + + + + | Date | Type | Department | Care Team | Description | +--------+ + + + + | 01/11/ | MyChart | Center for | Mini Disla, | Cortisol Stimulation | | 2018 | Encounter | Hematologic | [place] [address] [facility] | Test | | | | Malignancies at | [address] | | | | | [facility] | [place], [place] | | | | | [address] | [address] | | | | | [address] Mailcode: | | | | | | [facility] [place] | | | | | | [facility] [place], | | | | | | [place] [address] | | | | | | [phone] | | | +--------+ + + + [...] Rd | | | | | | [place], [place] | | | | | | [address] | | | | | | [phone] | | | | | | | | +--------+---------+ + + + documented as of this encounter Visit Diagnoses Not on filedocumented in this encounter"
--- OUTSIDE RECORDS SUMMARY | ~2019-05-17 | XMS | Encounter Summary ---
Demographics + + + | Address | [address] | | | [place] [address] | + + + | Home Phone [...] Team Providers + +------+ + | Care Word Processing Specialist Name | Role | Phone | + +------+ + | No Pcp Per Patient | PCP | Unavailable | + +------+ + Reason for Visit + + + | Reason | Comments | + + + | Rash | spreading | + + + | Eye Complaint | dry, blurry and double vision | + + + | Insomnia | | + + + | Sore throat | Angela | + + + | COLD | | + + + | Cough | | + + + | Runny Nose | | + + + Encounter Details +--------+ + + + + | Date | Type | Department | Care Team | Description | +--------+ + + + + | 10/19/ | Telephone | Center for | Ravi Jenkins FNP | Rash (spreading); | | 2017 | | Hematologic | [address] | Eye Complaint (dry, | | | | Malignancies at | [address] [place], | blurry and double | | | | [facility] | [place] [address] | vision); Insomnia; | | | | [address] | [phone] | Sore throat | | | | [address] Mailcode: | | (Angela); COLD; | | | | [facility] [place] | | Cough; Runny Nose | | | | [facility] [place], | | | | | | [place] [address] | | | | | | [phone] | | | +--------+ + + + [...] Rd | | | | | | [place], [place] | | | | | | [address] | | | | | | [phone] | | | | | | | | +--------+---------+ + + + documented as of this encounter Visit Diagnoses Not on filedocumented in this encounter"
--- OUTSIDE RECORDS SUMMARY | ~2019-05-17 | XMS | Encounter Summary ---
Demographics + + + | Address | [address] | | | [place] [address] | + + + | Home Phone [...] Providers + +------+ + | Care Construction Driver Name | Role | Phone | + +------+ + | Pending Pcp Addition | PCP | Unavailable | + +------+ + Reason for Visit + + + | Reason | Comments | + + + | Chemotherapy | Cycle 6 Day 2 Vidaza | + + + Chemotherapy (Routine) [...] | ic leukemia, | [address] | [facility] | | | | | not having | [address] | [address] | | | | | achieved | [place], [place] | Rd Mailcode: | | | | | remission | [address] | [facility] | | | | | Procedures | Phone: | [place] | | | | | [place] | [phone] | Pavilion | | | | | AZACITIDINE | Fax: | [place], [place] | | | | | INJECTION, 1 | [phone] | [address] | | | | | MG [place] | | Phone: | | | | | CHM,IV | | [phone] | | | | | INFSN,1 HR | | Fax: | | | | | ID CH[facility],IV | | [phone] | | | | | INFSN,ADDL | | | | | | | HR Vidaza | | | +--------+---------+ + + + + Encounter Details +--------+ + + + + | Date | Type | Department | Care Team | Description | +--------+ + + + + | 09/13/ | Clinical | Center for | | Chemotherapy (Cycle | | 2016 | Support | Hematologic | | 6 Day 2 Vidaza) | | | Staff | Malignancies at [facility] | | | | | | [address] | | | | | | [address] [address] Mailcode: | | | | | | [facility] [place] | | | | | | [place], | | | | | | [place] [address] | | | | | | [phone] | | | +--------+ + + + [...] + + + | Blood Pressure | 107/71 | 03/21/2016 9:14 AM | | | | | PDT | | + + + + + | Pulse | 70 | 03/21/2016 9:14 AM | | | | | PDT | | + + + + + | Temperature | 36.7 C (98 F) | 03/21/2016 9:14 AM | | | | | PDT | | + + + + + | Respiratory Rate | 16 | 03/21/2016 9:14 AM | | | | | PDT | | + + + + + | Oxygen Saturation | - | - | | + + + + + | Inhaled Oxygen | - | - | | | Concentration | | | | + + + + + | Weight | 100.4 kg (221 lb 5.5 | 03/21/2016 9:14 AM | weight obtained by | | | oz) | NIKKO | Babar Cook CMA | + + + + + | Height | - | - | | + + + + + | Body Mass Index | 28.11 | 01/25/2016 8:24 AM | | | | | PDT | | + + + + + documented in this encounter Progress Rochelle Theodore - 03/21/2016 10:09 AM PDTChemotherapy Nurse Note Physician: Yari Garcia MD Allergies: Khurram is allergic to chlorhexidine towelette. Narrative: Khurram Kelly is a 25 yo male with a h/o primary refractory AML. Patient is s/p tBuCy-conditioned unrelated donor PBSC transplant (Day 0 = 08/26/2015) and continues maintenance Vidaza. Patient arrives ambulatory with spouse for Cycle 6 Day 2 Vidaza. Nursing Assessment: VSS. Patient alert and oriented x3. Cushingoid appearance. No acute ne nts overnight. Fever / Chills: no; Dyspnea / Cough: no; Dizziness: no; S/S bleeding: no; Cooper ma: no; Rash: no; Neuropathy: no; Fatigue / Malaise: no; Nausea / Vomiting: Patient reports several episodes of nausea per day that subsides after 30 seconds to 1 minutes. Does not req uire antiemetics. Denies emesis; Constipation / Diarrhea: no; Urinary issues: no. Patient re ports he is eating and drinking 2 L per day without difficulty. Vascular Access: 22 gauge PIV placed in patient s left antcubitae, using an IV start kit by Kim Blackwood RN . PIV with excellent blood return. Labs drawn and sent. PIV flushed with 10 mL NS without an y problems. Sterile transparent dressing applied. Patient tolerated procedure well. Prior to D/C, PIV removed with tip intact - no redness, swelling, bruising noted. Site dres sed with gauze and coban. Treatment Provided: For Treatment Done in Clinic Today: see MAR No labs drawn today. Pre-medications of Zofran 8 mg PO given as [...] instructed to check out at the front maker prior to leaving the clinic. Patient d/c d ambulatory with spouse in stable condition. Next Appointment in [facility] is on 03/22/16 at 9:00 am with [facility]. Rochelle Ozuna RN documented in this encoun [...] Rd | | | | | | [place], [place] | | | | | | [address] | | | | | | [phone] | | | | | | | [...] 75 mg in | New Bag | 03/21/20 | 75 mg | 215 | | | NaCl 0.9 % IV 75 mg (rounded | | 16 10:00 | | mL/hr | | | from 72.64 mg = 32 mg/m2 | | AM PDT | | | | | 2.27 m2 Treatment plan recorded | | | | | | | BSA), intravenous, Administer | | | | | | | over 30 Minutes, ONCE, 1 dose, | | | | | | | 03/21/16 at 0930, HIGH RISK | | | | | | | MEDICATION-CHEMOTHERAPY | | | | | | | Administration must be completed | | | | | | | within 1 hour of preparation., | | | | | | + +---------+ +-------+-------+------+ +---+---+ | | | +---+---+ + +-------+ +------+---+---+ | ondansetron (ZOFRAN) tablet 8 | Given | 03/21/20 | 8 mg | | | | mg 8 mg, oral, ONCE, 1 dose, Sun | | 16 9:30 | | | | | 03/21/16 at 0930 | | AM PDT | | | | + +-------+ +------+---+---+ +---+---+ | | | +---+---+ documented in this encounter"
--- OUTSIDE RECORDS SUMMARY | ~2019-05-17 | XMS | Encounter Summary ---
Demographics + + + | Address | [address] | | | [place] [address] | + + + | Home Phone [...] Team Providers + +------+ + | Care Communications Field Technician Name | Role | Phone | + +------+ + | Pending Pcp Addition | PCP | Unavailable | + +------+ + Encounter Details +--------+ + + + + | Date | Type | Department | Care Team | Description | +--------+ + + + + | 01/13/ | MyChart | Center for | Lizzie Leavitt, | RE: [facility] | | 2016 | Encounter | Hematologic | [place] [address] | Medication | | | | Malignancies at | [address] | | | | | [facility] | [place], [place] | | | | | [address] | [address] | | | | | [address] Burger Mailcode: | [phone] | | | | | [facility] | | | | | | [place], | | | | | | [place] [address] | | | | | | [phone] | | | +--------+ + + + [...] | | | | | | [place], [place] | | | | | | [address] | | | | | | [phone] | | | | | | | | +--------+---------+ + + + documented as of this encounter Visit Diagnoses Not on filedocumented in this encounter"
--- OUTSIDE RECORDS SUMMARY | ~2019-05-17 | XMS | Encounter Summary ---
Demographics + + + | Address | [address] | | | [place] [address] | + + + | Home Phone [...] Team Providers + +------+ + | Care Hollow Ware Maker Name | Role | Phone | [...] | | | Malignancy | Acute | Yair Jones MD | [facility] [address] | | | | | 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, | [address] | [address] | | | | | not having | [address] | Mailcode: | | | | | achieved | [facility] [place] | [facility] | | | | | remission | [address] | [place] | | | | | | Phone: | [facility]ilion | | | | | Procedures | [phone] | [place], [place] | | | | | Post BMT | Fax: | [address] | | | | | Auth to | [phone] | Phone: | | | | | included | | [phone] | | | | | facility, | | Fax: | | | | | diagnostics, | | [phone] | | | | | office | [...] | Visit | Hematologic | PA-C [address] [facility] | leukemia (AML), M4 | | | | Malignancies at | [address] | ([facility])- primary | | | | [facility] | [place], [place] | induction failure | | | | [address] [facility] | [address] | (Primary Dx); S/P | | | | [address] Mailcode: | [phone] | allogeneic bone | | | | [facility] [place] | | marrow transplant | | | | [facility] [place], | | ([facility]) | | | | [place] [address] | | | | | | [phone] | | | +--------+---------+ + + + [...] MM URD (DPB1 permissive antigen mismatch, male, [id number]) Hematologic History: Khurram Kelly is a 25 [...] his L ankle. He was evaluated at [facility] ED on 06/[address] angiogram negative [...] acute myelomonocytic leukemia. He was referred to [facility] for further evaluation and man agement of his newly dx'd AML. Pt was admitted to [facility] on 05/26/15. Peripheral blood was sent [...] CD34, variable CD56, variable CD117, and dim VH219-kuuig mickey; promonocyte immunophenotype (70% by flow): CD11b, [...] e 1 mg capsule) in the evening. [place] 0.5 mg capsules for future use. TACROLIMUS 1 MG CAPSULE Take 1 mg (one 1 mg capsule) by mouth in the morning and 1 mg (one 1 mg capsule) in the evening. [place] 0.5 mg capsules for future use. TRIAMCINOLONE [...] eruption of lymphocyte recovery and early mild sqbho-mijzit-saxb disease. On 09/13, rash in volved ~15% [...] [facility] [address] [facility] Mailcode: [place] [address] documented in this encounter Plan [...] Hospital | | | | | | [facility] | | | | | | [place], [place] | | | | | | [address] | | | | | | [phone] | | | | | | | [...] + + + | YESSICA SORTO | [address] | [place], [place] | | | RUTHIE CARTER OF [facility] | [address] | [address] | | | TESTS | | | [...] + + + | YESSICA SORTO | [address] | [place], [place] | | | RUTHIE CARTER OF KRISTA | [address] | [address] | | | TESTS | | | [...] | + + + + + | [facility] | [address] | [place] [address] | | | SERVICES, SPECIAL | WALLY [...] | [facility] | [address] [facility] | [place] [address] | | | SERVICES, CORE | PARK [...] YESSICA LOZA | [address] | [place] [address] | | | SERVICES, CORE | WALLY [...]
--- OUTSIDE RECORDS SUMMARY | ~2019-05-17 | XMS | Encounter Summary ---
Demographics + + + | Address | [address] | | | [place] [address] | + + + | Home Phone [...] Team Providers + +------+ + | Care Electrifier Operator Name | Role | Phone | + +------+ + | Pending Pcp Addition | PCP | Unavailable | + +------+ + Encounter Details +--------+ + + + + | Date | Type | Department | Care Team | Description | +--------+ + + + + | 07/21/ | Nut Roaster Helper | Center for | Yari Garcia MD | Acute myeloid | | 2016 | | Hematologic | [address] | leukemia (AML), M4 | | | | Malignancies at | [address] | (HCC) (Primary Dx) | | | | [facility] | [place], [place] | | | | | [address] | [address] | | | | | [address] Mailcode: | [phone] | | | | | [facility] | | | | | | [place], | | | | | | [place] [address] | | | | | | [phone] | | | +--------+ + + + [...] | Visit | Malignancy | [address] [facility] | | | | | | [address] | | | | | | [place], [place] | | | | | | [address] | | | | | | [phone] | | | | | | | | +--------+---------+ + + + documented as of this encounter Visit Diagnoses + + | Diagnosis | + + | Acute myeloid leukemia (AML), M4 (HCC) - Primary | + + documented in this encounter"
--- OUTSIDE RECORDS SUMMARY | ~2019-05-17 | XMS | Encounter Summary ---
Demographics + + + | Address | [address] | | | [place] [address] | + + + | Home Phone [...] Team Providers + +------+ + | Care Liquor Inspector Name | Role | Phone | [...] | Hematology | Diagnoses | Jose, | [facility] | | | | Malignancy | 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, | [address] | [address] | | | | | not having | [address] | Mailcode: | | | | | achieved | [place], [place] | [facility] | | | | | remission | [address] | [place] | | | | | | Phone: | Pavilion | | | | | Procedures | [phone] | [place], [place] | | | | | Post BMT | Fax: | [address] | | | | | Auth to | [phone] | Phone: | | | | | included | | [phone] | | | | | facility, | | Fax: | | | | | diagnostics, | | [phone] | | | | | office | [...] 1 gram) | | | | [facility] [place] | | | | | | [place], | | | | | | [place] [address] | | | | | | [phone] | | | +--------+ + + + [...] MM URD (DPB1 permissive antigen mismatch, male, [id number]) Patient scheduled for provider visit today with [...] 2018 | Visit | Malignancy | [address] [facility] | | | | | | [address] | | | | | | [place], [place] | | | | | | [address] | | | | | | [phone] | | | | | | | [...] | | | | PDT | ([facility])- primary | | | | | | induction failure | | + +--------+ + + + | RBC MORPHOLOGY | Routin | 09/30/2015 | Acute myeloid | Results for this | | | e | 8:59 AM | leukemia (AML), M4 | procedure are in the | | | | PDT | ([facility])- primary | results section. | | | | | induction failure | | + +--------+ + + + | CBC AND AUTO DIFF | Urgent | 09/30/2015 | Acute myeloid | Results for this | | | | 8:59 AM | leukemia (AML), M4 | procedure are in the | | | | PDT | ([facility])- primary | results section. | | | | | induction failure | | + +--------+ + + + | MANUAL DIFFERENTIAL | Routin | 09/30/2015 | Acute myeloid | Results for this | | | e | 8:59 AM | leukemia (AML), M4 | procedure are in the | | | | PDT | ([facility])- primary | results section. | | | | | induction failure | | + +--------+ + + + | CBC, WITH | Urgent | 09/30/2015 | Acute myeloid | Results for this | | DIFFERENTIAL | | 8:59 AM | leukemia (AML), M4 | procedure are in the | | | | PDT | ([facility])- primary | results section. | | | | | induction failure | | + +--------+ + + + | LIVER SET | Urgent | 09/30/2015 | Acute myeloid | Results for this | | (AST,ALT,BILI | | 8:37 AM | leukemia (AML), M4 | procedure are in the | | TOTAL,BILI | | PDT | ([facility])- primary | results section. | [...] | | | | PDT | ([facility])- primary | results section. 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 | [address] | [place] [address] | | | SERVICES, SPECIAL | WALLY [...] + + + + + | [facility] | [address] | [place] [address] | | | SERVICES, CORE | WALLY [...] [facility] | [address] | [place], [place] | | | RUTHIE CARTER OF CARE | [address] | [address] | | | TESTS | | | [...]
--- OUTSIDE RECORDS SUMMARY | ~2019-05-17 | XMS | Encounter Summary ---
Demographics + + + | Address | [address] | | | [place] [address] | + + + | Home Phone [...] Providers + +------+ + | Care Underwriting Service Representative Name | Role | Phone | [...] + + | 08/18/ | Hospital | [facility] | | | | 2016 | Encounter | Interventional | | | | | | [facility] | | | | | | [address] | | | | | | [place], | | | | | | [place] [address] | | | | | | [phone] | | | +--------+ + + + [...] documented as of this encounter Progress Notes Jerad Caballero MD - 08/18/2015 12:06 PM PSTBRIEF INTERVENTIONAL RADIOLOGY PROCEDURE NOTE DATE: 08/18/2015 12:06 PM PROCEDURE: RIJ tunneled trifusion catheter PRE-PROCEDURE DIAGNOSIS: AML, awaiting SCT POST-PROCEDURE DIAGNOSIS: same IR STAFF: Charleen IR RESIDENT: Federico ACCESS: RIJ MEDICATIONS: See MAR COMPLICATION(S): None immediate FINDINGS: 1. Patent RIJ. 2. Uneventful 23 cm trifusion catheter placement available for immediate use. Full report forthcoming. documented in this e ncounter Plan of [...] Rd | | | | | | [place], [place] | | | | | | [address] | | | | | | [phone] | | | | | | | | +--------+---------+ + + + documented as of this encounter Procedures + +--------+ + + + | Procedure Name | Priori | Date/Time | Associated Diagnosis | Comments | | | ty | | | | + +--------+ + + + | CATH PLACEMENT | Routin | 08/18/2015 | | Results for this | | | e | 11:47 AM | | procedure are in the | | | | PST | | results section. | + +--------+ + + + documented in this encounter Results CATH PLACEMENT (08/18/2015 11:47 AM PST) + + + + + + | Component | Value | Ref Range | Performed | Pathologist | | | | | At | Signature | + + + + + + | CATH | Procedure: | | | | | PLACEMENT | Fluoroscopically guided | | | | | | Trifusion Catheter | | | | | | Placement Primary | | | | | | english language arts teacher: Jerad | | | | | | August Caballero Attending | | | | | | english language arts teacher: | | | | | | Joyce Villaseñor M.D. | | | | | | Preoperative diagnosis: | | | | | | Acute myelogenous | | | | | | leukemia Postoperative | | | | | | diagnosis: Same | | | | | | Operations: Operation 1. | | | | | | Ultrasound guided | | | | | | puncture right internal | | | | | | jugular vein. Operation | | | | | | 2. Antegrade tunneling | | | | | | Trifusion catheter on | | | | | | right anterior | | | | | | chestwall. Operation 3. | | | | | | Fluoroscopically | | | | | | guided Insertion of 12 | | | | | | [place] triple | | | | | | lumenTrifusion catheter | | | | | | into the SVC | | | | | | Indications: 25-year-old | | | | | | male with acute | | | | | | myelogenous leukemia | | | | | | requiring tunneled | | | | | | centralvenous catheter | | | | | | for stem cell therapy | | | | | | Procedure: The patient, | | | | | | procedure, and allergies | | | | | | were confirmed in the | | | | | | presence of thepatient | | | | | | by the attending.The | | | | | | attending physician was | | | | | | present for the | | | | | | entireprocedure. Written | | | | | | informed consent was | | | | | | obtained in a PARQ | | | | | | conference with | | | | | | thepatient. The | | | | | | procedure was performed | | | | | | with intravenous | | | | | | sedation. The patient | | | | | | was prepped and draped | | | | | | in the usual manner. US | | | | | | was performed toevaluate | | | | | | and select vascular | | | | | | access and an image | | | | | | recorded and | | | | | | archiveddocumenting | | | | | | patency. Realtime US was | | | | | | utilized for | | | | | | visualization of needle | | | | | | entryinto the | | | | | | vein.Utilizing | | | | | | ultrasound guidance and | | | | | | a micropuncture needle | | | | | | theright internal | | | | | | jugular vein was | | | | | | punctured under local | | | | | | anesthesia. | | | | | | Serialdilatation | | | | | | allowed placement of a | | | | | | 14 Libyan peel away | | | | | | sheath. Local | | | | | | anestheticwas | | | | | | administered to the | | | | | | right anterior chest | | | | | | wall and the catheter | | | | | | tunneled inantegrade | | | | | | fashion utilizing sharp | | | | | | and blunt technique. | | | | | | The 12 [place]yan | | | | | | triplelumen Trifusion | | | | | | catheter was then | | | | | | inserted through the | | | | | | sheath and | | | | | | positionedwith its tip | | | | | | at the cavo-atrial | | | | | | junction with | | | | | | fluoroscopy. The | | | | | | catheter wasflushed. | | | | | | The catheter was | | | | | | sutured in place with | | | | | | nylon suture at the neck | | | | | | andskin exit site. A | | | | | | dry sterile dressing was | | | | | | applied. Digital | | | | | | radiograph wasobtained | | | | | | at the termination of | | | | | | the procedure. Total | | | | | | fluoroscopic time: 1.4 | | | | | | minMedications: Versed | | | | | | 4 mg IV, fentanyl 100 | | | | | | mg IV Findings: There | | | | | | is a patent right | | | | | | internal jugular vein. | | | | | | The access needle | | | | | | wasvisualized in the | | | | | | vein. A 12 [place] triple | | | | | | lumen Trifusion | | | | | | catheter was placedwith | | | | | | its tip at the | | | | | | cavo-atrial junction in | | | | | | tunneled fashion. | | | | | | Impression: 1. Patent | | | | | | right internal jugular | | | | | | vein. 2. Placement of | | | | | | 12 [place] triple lumen | | | | | | Trifusion catheter in | | | | | | tunneled fashionvia | | | | | | right internal jugular | | | | | | vein. 3. Catheter tip | | | | | | is at cavo-atrial | | | | | | junction and is ready | | | | | | for immediate use. 4. | | | | | | No evidence of | | | | | | pneumothorax on | | | | | | completion digital | | | | | | image. Attending | | | | | | Radiologists: JOYCE | | | | | | BHAVESH VILLASEÑORuthor: | | | | | | JOYCE VILLASEÑOR MD I | | | | | [...] | | | | | signed / JOYCE | | | | | | CHARLEEN 08/18/2015 12:59 | | | | | | PM | | | | + + + + + + + + | Specimen | + + | | + + + +---------+ + + | Performing | Address | City/State/Zipcode | Phone Number | | Organization | | | | + +---------+ + + | [facility] DEPARTMENT OF | | | | | RADIOLOGY | | | | + +---------+ + + documented in this encounter Visit Diagnoses Not on filedocumented in this encounter"
--- OUTSIDE RECORDS SUMMARY | ~2019-05-17 | XMS | Encounter Summary ---
Demographics + + + | Address | [address] | | | [place] [address] | + + + | Home Phone [...] Team Providers + +------+ + | Care Sap Bpc Developer Name | Role | Phone | + +------+ + | Pending Pcp Addition | PCP | Unavailable | + +------+ + Reason for Visit + + + | Reason | Comments | + + + | Medication | Tacrolimus | | Adjustment | | + + + Encounter Details +--------+ + + + + | Date | Type | Department | Care Team | Description | +--------+ + + + + | 10/06/ | Telephone | Center for | Em Saunders, | Medication | | 2016 | | Hematologic | PA-C [address] | Adjustment | | | | Malignancies at [facility] | [address] | (Tacrolimus) | | | | [address] | [place], [place] | | | | | Debi Tao Mailcode: | [address] | | | | | [facility] | [phone] | | | | | [place], | | | | | | [place] [address] | | | | | | [phone] | | | +--------+ + + + [...] | | | | | | [place] | | | | | | [address] | | | | | | [phone] | | | | | | | | +--------+---------+ + + + documented as of this encounter Visit Diagnoses Not on filedocumented in this encounter"
--- OUTSIDE RECORDS SUMMARY | ~2019-05-17 | XMS | Encounter Summary ---
Demographics + + + | Address | [address] | | | [place] [address] | + + + | Home Phone [...] Team Providers + +------+ + | Care Bracelet Form Coverer Name | Role | Phone | + +------+ + | Pending Pcp Addition | PCP | Unavailable | + +------+ + Reason for Visit + + + | Reason | Comments | + + + | Follow-up visit | | + + + | Pain around eye | | + + + Encounter Details +--------+---------+ + + + | Date | Type | Department | Care Team | Description | +--------+---------+ + + + | 09/14/ | Office | [facility] | Park, Dong Wouk, | Redness of eye, | | 2016 | Visit | [place] | MD | right (Primary Dx); | | | | ogy at [facility] [address] | | Acute anterior | | | | [place] Mailcode: | | uveitis | | | | [address] [facility] | | | | | | Health and [facility], | | | | | | Building | | | | | | Floor [place], [place] | | | | | | [address] | | | | | | [phone] | | | +--------+---------+ + + + [...] documented as of this encounter Progress Notes Michael Carrera MD - 09/15/2015 10:28 AM PSTFormatting of this note might be different fro m the original. COMPREHENSIVE OPHTHALMOLOGY PROGRESS NOTE Assessment and Plan: Exam Date: 09/15/2015 Patient:Khurram Kelly ([id number]) Impression: 25 y/o M with PMH signifcant for refractory AML s/p BMT and currently on tacrolimus and naga g-course methotrexate therapy, now with 4 day history of red eye. 1) Red eye of the right eye - improving per and the patient - Pain with eye movements resolving - Two PRACHI without signs of scleritis 2) anterior chamber cells of the right eye - At least some of the cells appear pigmented. Along with pigmented cells on the corneal en dothelium and hemorrhage visible on the irisi points, the pigmented AC cell points toward he morrhage being the possible cause of the anterior cell reaction - Last platelet level on 16: 42 (abnormally low) - photophobia now resolved and patient symptom free Plan: - Pred forte twice a day - RTC in 2 weeks for cell check, IOP check, and nDFE Physician: Michael Carrera MD 09/15/2015 HPI:Khurram Kelly ([id number]), 25 y.o. year old male from [place] : Patient presents with: Follow-up visit Pain around eye Reports that his right eye has been improving. The pain with movement is less. Good vision. The reports that his redness has also improved. Reports that he has not been rubbing t he eyes. Denies photosensitivity. Tobacco use: reports that he quit smoking about 3 months ago. He has quit using smokeless tobacco. Primary Care Provider: Pending Pcp ADDITION Past ocular history: No specialty comments on file. Family ocular history: family history includes Cancer in his maternal grandmother and paternal grandmother and Hea rt Disease in his maternal grandfather and paternal grandfather. See scanned intake form or preadmission data in [facility] for full Family ocular and medical his tory. Allergies: is allergic to chlorhexidine towelette. Medications: Current Outpatient Prescriptions (Ophthalmic Medications) Medication Sig prednisoLONE acetate Instill 1 drop into the right eye two times daily. Current Outpatient Prescriptions (Other) Medication Sig acyclovir Take 1 tablet by mouth two times daily. ALPRAZolam Take 2 tablets by mouth three times daily as needed for anxiety. amLODIPine Take one-half tablet by mouth once daily. fluconazole Take 2 tablets by mouth once daily. Lactulose Take 10 grams (one packet) by mouth twice daily as needed (constipation). omeprazole Take 1 capsule by mouth before breakfast. ondansetron Take 1 to 2 tablets by mouth every twelve hours as needed for nausea/vomiti ng. oxyCODONE (immediate release) Take 1 to 2 tablets by mouth every four hours as needed f or moderate pain. prochlorperazine Take 1 tablet by mouth every six hours as needed for nausea/vomiting. Max dose: 40 mg/day senna-docusate Take 1 tablet by mouth twice daily as needed (constipation). sertraline Take 1 tablet by mouth once daily. Indications: Anxiety with Depression (Pat ient taking differently: Take 25 mg by mouth as needed. Indications: Anxiety with Depression ) tacrolimus Your current dose is 2mg twice daily. Combine the 1mg and 0.5mg pills to dawood e the correct dose. The dose will change based on your blood levels. tacrolimus Your current dose is 2mg twice daily. Combine the 1mg and 0.5mg pills to dawood e the correct dose. The dose will change based on your blood levels. triamcinolone acetonide Apply to affected area three times daily. Apply thin film to af fected areas. ursodiol Take 1 capsule by mouth two times daily for 5 days. 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 Reviewed systems for: fever, wt. loss, ENT, cardiovascular, pulmonary, GI, urinary, neurolo gic, endocrine, bleeding/blood disorders, AIDS/HIV, cancer/tumors, arthritis - all were nega tive except as noted above. EXAMINATION: Base Exam Visual Acuity (Snellen - Linear) Right Left Dist sc 20/30 +2/-2 20/20 -2 Dist ph sc 20/20-1 Tonometry (Applanation, 10:44 AM) Right Left Pressure 9 10 Pupils Pupils Dark Light React APD Right PERRL 5 2 Brisk None Left PERRL 5 2 Brisk None Visual Diamond (Counting fingers) Left Right Result Full Full Extraocular Movement Right Left Result Full Full Neuro/Psych Oriented x3: Yes Mood/Affect: Normal Slit Lamp and Fundus Exam External Exam Right Left External Normal Normal Slit Lamp Exam Right Left Lids/Lashes Normal Normal Conjunctiva/Sclera 1+ injection, non-tender, no palpebral follicles, scant PRACHI at 2 o'agustín ck and at 5 o'clock White and quiet Cornea pigmented cells on the endothelium All layers clear Anterior Chamber Formed, deep, no hypopyon, trace cell (some pigmented), no flare Deep and quiet Iris scant heme on iris pupillary margin at 4:30 Normal Lens Clear Clear CBC with diff last 72 hours (or 3 results) Recent Labs 09/12/15 2326 09/14/15 1316 WBC 9.27 10.4 HB 8.6* 9.6* HCT 24.9* 27.4* PLT 30* 42* NEUTROPERC 74.6* -- LYMPHPERC 9.6* -- MONOPERC 11.4* 19.3* BASOPERC 0.0 0.3 EOSPERC 0.9* 1.3 See EPIC ophthalmology module for exam information. Assessment and Plan is now at the top of the note. Pt seen and examined with Dr. Solis. Makayla Carrera Resident physician at [facility] I saw and evaluated the patient. I agree with the findings and the plan of care as marco antonio leon in the resident s note. Hayder Solis MD [facility] [place]HTHALMOLOG[facility] AT [facility] [address] Mailcode: [address] [place] [address] documented in this encounter Plan [...] Rd | | | | | | [place], [place] | | | | | | [address] | | | | | | [phone] | | | | | | | | +--------+---------+ + + + documented as of this encounter Visit Diagnoses + + | Diagnosis | + + | Redness of eye, right - Primary Redness or discharge of eye | + + | Acute anterior uveitis Acute and subacute iridocyclitis, unspecified | + + documented in this encounter"
--- OUTSIDE RECORDS SUMMARY | ~2019-05-17 | XMS | Encounter Summary ---
Demographics + + + | Address | [address] | | | [place] [address] | + + + | Home Phone [...] Team Providers + +------+ + | Care Lathe Winder Name | Role | Phone | + +------+ + | Zayda Hinton | PCP | | + +------+ + Encounter Details +--------+ + + + + | Date | Type | Department | Care Team | Description | +--------+ + + + + | 01/13/ | Pharmacy | Specialty Pharmacy | | | | 2015 | Visit | Services [address] | | | | | | [address] | | | | | | [place], [place] | | | | | | [address] | | | | | | [phone] | | | +--------+ + + + [...] 2019 | Visit | Malignancy | [address] | | | | | | [address] | | | | | | [place], [place] | | | | | | [address] | | | | | | [phone] | | | | | | | | +--------+---------+ + + + documented as of this encounter Visit Diagnoses Not on filedocumented in this encounter"
--- OUTSIDE RECORDS SUMMARY | ~2019-05-17 | XMS | Encounter Summary ---
Demographics + + + | Address | [address] | | | [place] [address] | + + + | Home Phone [...] Team Providers + +------+ + | Care Wire Communications Engineer Name | Role | Phone | [...] [place] [address] | | | | | [place] | | [address] | | | | | [address] | | [address] [place], | | | | | [address] | | [place] | | | | | [place] | | [address] | | | | | [address],[address] | | Phone: | | | | | [address]FS[address] | | [phone] | | | | | [place] | | Fax: | | | | | INFSN,ADDL | | [phone] | | | | | HR | [...] | | | | | | [id number] | | | | | | [place], | | | | | | [place] [address] | | | | | | [phone] | | | +--------+ + + + [...] if he wants to speak wi social worker masters. He stated he discloses everything to his [...] [address] | | | | | | [place], [place] | | | | | | [address] | | | | | | [phone] | | | | | | | [...]
--- OUTSIDE RECORDS SUMMARY | ~2019-05-17 | XMS | Encounter Summary ---
Demographics + + + | Address | [address] | | | [place] [address] | + + + | Home Phone [...] Team Providers + +------+ + | Care Editor Producer Name | Role | Phone | + +------+ + | Zayda Hinton | PCP | | + +------+ + Encounter Details +--------+ + + + + | Date | Type | Department | Care Team | Description | +--------+ + + + + | 07/05/ | Pharmacy | Specialty Pharmacy | | | | 2014 | Visit | Services [address] | | | | | | [address] | | | | | | [place], [place] | | | | | | [address] | | | | | | [phone] | | | +--------+ + + + [...] [place] | | | | | | [address] | | | | | | [phone] | | | | | | | | +--------+---------+ + + + documented as of this encounter Visit Diagnoses Not on filedocumented in this encounter"
--- OUTSIDE RECORDS SUMMARY | ~2019-05-17 | XMS | Encounter Summary ---
Demographics + + + | Address | [address] | | | [place] [address] | + + + | Home Phone [...] Team Providers + +------+ + | Care Table Cover Folder Name | Role | Phone | + [...] Description | +--------+---------+ + + + | 01/11/ | Office | Center for | Aspen Cummins FNP | Acute myelomonocytic | | 2018 | Visit | Hematologic | [address] [facility] [address] | leukemia in | | | | Malignancies at | [facility] | remission (HCC) | | | | [facility] | [place], [place] | (Primary Dx); | | | | [address] [facility] | [address] | Immunocompromised | | | | [address] Mailcode: | [phone] | state associated | | | | [id number] | | with stem cell | | | | [facility] [place], | | transplant (HCC); | | | | [place] [address] | | S/P allogeneic bone | | | | [phone] | | marrow transplant | | | | | | (HCC) | +--------+---------+ + + + Social History [...] + + + | Blood Pressure | 126/69 | 07/19/2017 9:28 AM | | | | | PST | | + + + + + | Pulse | 83 | 07/19/2017 9:28 AM | | | | | PST | | + + + + + | Temperature | 37.1 C (98.8 F) | 07/19/2017 9:28 AM | | | | | PST | | + + + + + | Respiratory Rate | 12 | 07/19/2017 9:28 AM | | | | | PST | | + + + + + | Oxygen Saturation | 97% | 07/19/2017 9:28 AM | | | | | PST | | + + + + + | Inhaled Oxygen | - | - | | | Concentration | | | | + + + + + | Weight | 73 kg (160 lb 15 oz) | 07/19/2017 9:28 AM | | | | | PST | | + + + + + | Height | - | - | | + + + + + | Body Mass Index | 20.12 | 04/02/2017 1:46 PM | | | | | PDT | | + + + + + documented in this encounter Patient Instructions Patient Instructions Aspen Cummins FNP - 07/19/2017 9:[address] Jeffers to drake sheldon about scheduling surgery 2. Restart acyclovir 800 mg by mouth twice daily 3. We'll ask our insurance examiner to give you a call and see if she can help with ins urance issues 4. I'll release your labs to [facility] once they're available. 5. Return to clinic to follow up with Yari Garcia MD in 1 month. 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 He was evaluated at [place]'s ED on 06/[address] angiogram negative [...] CD34, variable CD56, variable CD117, and dim MA151-hovoq mickey; promonocyte immunophenotype (70% by flow): CD11b, [...] hip arthroplasty. He is currently 1 year, 11monthss/p transplant, s/p 6 cyclesof azacitidine and return s to clinic today for scheduled follow-up. Interim History: Clary most recently evaluated in [facility] by andra 06/18/17. He is in good spirits, feeling well. Appetite is good, n o c/o N/V/D. Surprised he hasn't regained weight since his last clinic visit. Working out more, lifting weights. Unable to walk distances due to ongoing R hip pain. He is thinking he 'd like to have hip replacement surgery in late September when his in on break from school. Anxiety has been well controlled. Continues to taper down xanax, now taking 0.5 mg po BID. No longer having withdrawal symptoms. He feels this is related to improved situation at home with his brother's girlfriend (who is now in fci). He continues to care for his son and fr equently babysits his nephew. Review of Systems Constitutional: Negative for chills, [...] needed. ALPRAZolam 0.5 mg oral tablet Take 0.5 mg by mouth twice daily mycophenolate delayed release 360 mg oral tablet,delayed release (DR/EC) Take 2 tablets by mouth two times daily. Indications: gvhd predniSONE 10 mg oral tablet Take 1 tablet (10 mg) by mouth daily tacrolimus 0.5 mg oral capsule Take 0.5 mg by mouth every other morning Indications: GV HD No current facility-administered medications for this visit. No Known Allergies Filed Vitals: 07/19/2017 9:28 AM Weight: 73 kg (160 lb 15 oz) BP: 126/69 Pulse: 83 Temp: 37.1 C (98.8 F) TempSrc: Oral Resp: 12 SpO2: 97% PainSc: 02 - Mild PainLoc: Leg (Bilateral) BMI: 20.12 kg/(m^2) Physical Exam Constitutional: Thin CM in [...] reviewed. Lab Results Component Value Date WBC 12.90 07/19/2017 HB 13.9 07/19/2017 HCT 41.3 07/19/2017 PLT 264 07/19/2017 MCV 93.7 07/19/2017 RDW 44.2 07/19/2017 Lab Results Component Value Date BICARB 26 07/19/2017 TBILI 0.8 07/19/2017 CA 9.7 07/19/2017 CL 106 07/19/2017 CR 0.8 07/19/2017 GLU 113 (H) 07/19/2017 AP 68 07/19/2017 TP 7.2 07/19/2017 BUN 10 07/19/2017 ALB 4.3 07/19/2017 AST 45 (H) 07/19/2017 NA 136 07/19/2017 K 4.2 07/19/2017 ALT 37 07/19/2017 Assessment/Plan: 1. 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 His most recent marrow studies completed 08/31/16 showed a no rmocellular marrow (30%) with trilineage hematopoiesis, marrow eosinophilia (~15%) and <2% myeloid blasts. Karyotype 46,XY[20]. VNTR showed no detectable host cells. 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 Mild leukocytosis noted without evidence of recurrent disease. Peripheral counts o/w WNL. --> continue CBC q4 weeks and prn --> no additional marrow studies indicated providing peripheral counts remain stable 2. 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 He initially responded but flared during taper. He also developed low-level nausea and abd discomfort concerning for GvHD, emp irically treated with oral non-absorbables with resolution. - He had tapered prednisone to 10 mg po daily when he developed a rash for which he was see n in the ED in [place] in late 01/21. Prednisone was increased back [...] tacrolimus (tapering), prednisone 10 mg po daily. -->continue tacrolimus taper as follows - on 07/20/17, decrease to 0.5 mg po every other day - on 08/03/17, d/ctacrolimus --> anticipate initiation of MMF or prednisone taper next visit --> continue to monitor for s/s active GvHD every visit 3. Infectious Disease: Afebrile without localizing s/s infection. He continues prophylact ic acyclovir alone although states he hasn't taken this medication in ~2 weeks after running out. His most recent immune reconstitution panel collected 08/31/16 showed normal total T ce lls with relative decrease in CD4+ margarita cells, normal total NK cells, normal total B cells with relative decrease in non-switched memory B cells and minimal immune activation. CD4 co unt 420. Post-transplant vaccines up-to-date save MMR and PPSV23; pt is ineligible for tho se vaccines while he remains on IST. Received annual inactivated influenza vaccine on 05/24. -->restart acyclovir, continue until off all IST --> hepBsAb pending today to assess immunity post-vaccination -->repeat immune reconstitution panel pending today --> hold MMR and PPSV23 until pt off all IST x 1 year, then re-evaluate immune status 4. Fluid, Electrolyte and Nutrition: Appetite is much better per pt report, disappointed he has not regained more weight. No c/o N/V/D. Adequate po fluid intake noted. His electr olytes are reviewed and are within acceptable limits. [...] Dr. Jeffers on 04/02/17; per pt report, thou ght there may be a hairline fracture causing [...] today, however pt did not fast. --> fasting lipid panel next visit 8. Follow up -->RTC to f/u with Yari Garcia MD and PFTs in 1 month in conjunction with his 2 year cele mason, sooner prn. Aspen Cummins, ASSEMBLY MACHINE TOOL SETTER [facility] AT [address] Mailcode: [place] [address] documented in this enc ounter [...] | | | 2018 | Visit | [facility] | [address] [facility] [address] | | | | | | [facility] | | | | | | [place], [place] | | | | | | [address] | | | | | | [phone] | | | | | | | | +--------+---------+ + + + documented as of this encounter Procedures + +--------+ + + + | Procedure Name | Priori | Date/Time | Associated Diagnosis | Comments | | | ty | | | | + +--------+ + + + | IMMUNOLOGY CASE | Routin | 07/19/2017 | | Results for this | | [...] | + +-------+ + + + | OLE06-56% | 4.92 | 4.94 L/sec | [facility] | | | PRE | | | SPECIAL | | | | | | DIAGNOSTICS | | | | | | - | | | | | | PULMONARY | | | | | | FUNCTION | | + +-------+ + + + | VJB74-57% | 99 | % | [facility] | [...] + + + + + | [facility] | [address] | [place], [place] | | | DIAGNOSTICS - | [address] | [address] | | | PULMONARY FUNCTION | | | | + + + + + HEMOGLOBIN A1C, BLOOD (08/20/2017 2:00 PM PST) [...] | [facility] | | considered for monitoring prison glycemic control in patients with: | LABORATORY [...] | + + + + + | [facility] | [address] [facility] | [place] [address] | | | SERVICES, SPECIAL | [address] | | | | IMM + COAG | | | | + + + + + CMP, POC (BMP+LFT) (08/20/2017 1:40 PM PST) [...] SORTO | [address] | [place], [place] | | | RUTHIE CARTER OF [facility]STA | [facility] | [address] | | | TESTS | | | | + + + + + CBC+DIFFPHIL (08/20/2017 1:37 PM PST) + + + [...] | [facility] | [address] | [place], [place] | | | [facility] | [address] | [address] | | | TESTS | | | [...] | + + + + + | [employer] [facility] | [address] | [place] [address] | | | SERVICES, INDRA | [address] | | | + + + + + IMMUNOLOGY JANEY (07/19/2017) + + + + + + | Component | Value | Ref Range | Performed | Pathologist | | | | | At | Signature | + + + + + + | IMMUNOLOGY | SOURCE OF SPECIMEN:A | | [facility] | | | CASE | Lymphocyte Activation | | DEPARTMENT | | | | Panel - 2.5ml EDTA | | OF | | | | Final Pathologic | | PATHOLOGY | | | | Diagnosis:Peripheral | | | | | | blood:- Normal | | | | | | number of T, B and NK | | | | | | cells- Minimal | | | | | | immune activation | | | | | | Case seen by:Kerri | | | | | | MD Alex, | | | | | | PhD/Hematopathology | | | | | | Rebecca Cain M.D., | | | | | | Ph.D./Hematopathologist | | | | | | Clinical History: | | | | | | This patient is a 26 | | | | | | year old man with | | | | | | 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 The clinician | | | | | | requests an evaluation | | | | | | of peripheral | | | | | | bloodlymphocytes for | | | | | | evidence of | | | | | | reconstitution and | | | | | | immune activation. | | | | | | Laboratory | | | | | | Data:07/19/17 09:24 | | | | | | Ref | | | | | | Range & Units | | | | | | ValueWHITE CELL COUNT | | | | | | 3.50 - 10.80 K/cu mm | | | | | | 12.90RED CELL | | | | | | COUNT 4.50 - 6.00 M/cu | | | | | | mm 4.41HEMOGLOBIN | | | | | | 13.5 - 17.5 g/dL | | | | | | 13.9HEMATOCRIT | | | | | | 41.0 - 53.0 % 41.3MCV | | | | | | 80.0 - 96.0 fL | | | | | | 93.7MCHC 33.0 - 35.5 | | | | | | g/dL 33.7RDW SD | | | | | | 35.1 - 46.3 fL | | | | | | 44.2PLATELET COUNT 150 - | | | | | | 400 K/cu mm 264MPV | | | | | | 9.7 - 12.3 fL | | | | | | 8.3NRBC% 0.0 - | | | | | | 0.3 % 0.0NRBC# | | | | | | 0.00 - 0.02 K/cu mm | | | | | | 0.00NEUTROPHIL % 50.0 | | | | | | - 70.0 % | | | | | | 80.0LYMPHOCYTE % | | | | | | 18.0 - 42.0 % | | | | | | 13.9MONOCYTE % | | | | | | 3.5 - 9.0 % | | | | | | 4.3EOSINOPHIL % 1.0 | | | | | | - 3.0 % | | | | | | 0.9BASOPHIL % | | | | | | 0.0 - 2.0 % | | | | | | 0.0IMMATURE | | | | | | GRANULOCYTE% 0.0 - | | | | | | 0.6 % 0.0REACTIVE | | | | | | LYMPHS % 0.0 - 10.0 % | | | | | | 0.9Comments: Fewer | | | | | | than 10% Reactive Lymphs | | | | | | noted on | | | | | | scan.NEUTROPHIL # | | | | | | 1.80 - 7.70 K/cu mm | | | | | | 10.32LYMPHOCYTE # | | | | | | 1.00 - 4.80 K/cu mm | | | | | | 1.79MONOCYTE # | | | | | | 0.10 - 0.90 K/cu mm | | | | | | 0.55EOSINOPHIL # 0.00 | | | | | | - 0.50 K/cu mm | | | | | | 0.12BASOPHIL # | | | | | | 0.00 - 0.10 K/cu mm | | | | | | 0.00IMMATURE | | | | | | GRANULOCYTE# 0.00 - | | | | | | 0.03 K/cu mm | | | | | | 0.00REACTIVE LYMPHS # | | | | | | K/cu mm 0.12 | | | | | | Flow [...] | | | | | CD4, CD8, EF5ujfm,CD19, | | | | | | CD25, [...] (CD3+) | | | | | | 55.1 987.5 | | | | | | 55-85% | | | | | | 700-7941IL6+ CD4+ | | | | | | 18.1 | | | | | | 324.5 28-57% | | | | | | 300-5968XJ0+ CD8+ | | | | | | 36.3 | | | | | | 650.9 10-39% | | | | | | | | | | | | 200-900CD3+CD4-CD8-(Do | | | | | | ub.neg) 0.8 NA | | | | | | <6%CD3+CD4+8+ | | | | | | (Doub.pos) 0.2 | | | | | | NA | | | | | | <2%CD4+CD45RO- | | | | | | (na ve) 0.7 | | | | | | NA 8-50%NKT | | | | | | | | | | | | 1.2 | | | | | | <7%NK cells | | | | | | (CD56+CD3-) 23.3 | | | | | | 418.5 5-28% | | | | | | 71-499Total B-cells | | | | | | (CD19+) 18.0 | | | | | | 323.0 6-19% | | | | | | 100-500 | | | | | | | | | | | | % of B cells | | | | | | % of B-cellsIgD+ CD27- | | | | | | Na ve B-cells | | | | | | 74.9 | | | | | | 50-80%IgD+ CD27+ | | | | | | Non-switched memory B | | | | | | 1.2 | | | | | | 5-21%IgD- CD27+ | | | | | | Switched, memory B | | | | | | 10.2 | | | | | | 5-24%Activation | | | | | | Indicators | | | | | | | | | | | | Patient Results | | | | | | Reference | | | | | | RangeCD4:CD8 ratio | | | | | | 0.5 | | | | | | 1.0-3.6 | | | | | | | | | | | | %Lymphs | | | | | | | | | | | | %LymphsCD3+CD4+NR3aczu | | | | | | + 0.3 | | | | | | | | | | | | <1.5%CD3+HLA-DR+ | | | | | | 0.9 | | | | | | | | | | | | <10%CD4+CD25+ | | | | | | 1.4 | | | | | | | | | | | | <7%ZW1azeh+CD69+ | | | | | | 0.3 | | | | | | <1% | | | | | | | | | | | | | | | | | | % of CD4+ T | | | | | | cellsCD4+CD25+ bright (T | | | | | | regs)8.9 | | | | | | <10% [...] diagnosis. 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
--- OUTSIDE RECORDS SUMMARY | ~2019-05-17 | XMS | Encounter Summary ---
Demographics + + + | Address | [address] | | | [place] [address] | + + + | Home Phone [...] Providers + +------+ + | Care Quality Compliance Manager Name | Role | Phone | [...] | | | | | achieved | [place], [place] | Mailcode: | | | | | remission | [address] | [id number] | | | | | Procedures | Phone: | [facility] | | | | | [place] | [phone] | Pavilion | | | | | AZACITIDINE | Fax: | [place], [place] | | | | | INJECTION, 1 | [phone] | [address] | | | | | [facility] | | Phone: | | | | | CHM,IV | | [phone] | | | | | INFSN,1 HR | | Fax: | | | | | [facility] | | [phone] | | | | | INFSN,ADDL | [...] cummins NP); | | | | [place], | | Chemotherapy | | | | [place] [address] | | (vidaza) | | | | [phone] | | | +--------+ + + + [...] was instructed to check out at the help desk technician prior to leaving the clinic. Patient d/c [...] Rd | | | | | | [place], [place] | | | | | | [address] | | | | | | [phone] | | | | | | | [...] M4 | | | | | | ([facility])- primary | | | | | | induction failure | | + +--------+ + + + | CBC+DIFF,POC | Routin | 02/23/2016 | S/P allogeneic | Results for this | | | e | 10:42 AM | bone marrow | procedure are in the | | | | PDT | transplant ([facility]) | results section. 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[facility])- primary | | | | | | induction failure | | + +--------+ + + + | TREATMENT PARAMETERS | Routin | 02/23/2016 | Acute myeloid | | | #2 - [facility] | e | 10:25 AM | leukemia (AML), M4 | | | | | PDT | ([facility])- primary | | | | | | induction failure | | + +--------+ + + + | TREATMENT PARAMETERS | Routin | 02/23/2016 | Acute myeloid | | | #2 - [facility] | e | 10:25 AM | leukemia (AML), M4 | | | | | PDT | ([facility])- primary | | | | | | induction failure | | + +--------+ + + + | TREATMENT PARAMETERS | Routin | 02/23/2016 | Acute myeloid | | | #2 - [facility] | e | 10:25 AM | leukemia (AML), M4 | | | | | PDT | ([facility])- primary | | | | | | induction failure | | + +--------+ + + + | TREATMENT PARAMETERS | Routin | 02/23/2016 | Acute myeloid | | | #2 - [facility] | e | 10:25 AM | leukemia (AML), M4 | | | | | PDT | ([facility])- primary | | | | | | induction failure | | + +--------+ + + + | TREATMENT PARAMETERS | Routin | 02/23/2016 | Acute myeloid | | | #2 - [facility] | e | 10:25 AM | leukemia (AML), M4 | | | | | PDT | ([facility])- primary | | | | | | induction failure | | + +--------+ + + + | NURSING | Routin | 02/23/2016 | Acute myeloid | | | COMMUNICATION #3 - | e | 10:25 AM | leukemia (AML), M4 | | | [facility] | | PDT | ([facility])- primary | [...] (H) | 0 - 206 U/L | [facility] - | | | | | | [place] | | | | | | RUTHIE CARTER | | | | | | OF CARE | | | | | | TESTS | | + +---------+ + + + | MAGNESIUM, | 2.0 | 1.8 - 2.5 mg/dL | [facility] - | | | POC | | [...] - [place] | [address] | [place], [place] | | | RUTHIE CARTER OF CARE | [address] | [address] | | | TESTS | | | [...] [facility] | [address] | [place], [place] | | | [facility]IE [facility]TER OF [facility] | [facility] | [address] | | | TESTS | | | [...] YESSICA [facility] | [address] | [place] [address] | | | SERVICES, INDRA | [address] [...]
--- OUTSIDE RECORDS SUMMARY | ~2019-05-17 | XMS | Encounter Summary ---
Demographics + + + | Address | [address] | | | [place] [address] | + + + | Home Phone [...] Team Providers + +------+ + | Care Rubber Mixer Name | Role | Phone | [...] | | | | Christian Barry | [place], [place] | | | | | [address] | [address] | | | | | [address] [place] Mailcode: | [phone] | | | | | [facility] | | | | | | [facility] | | | | | | [place] [address] | | | | | | [phone] | | | +--------+ + + + [...] | | | | | | [place], [place] | | | | | | [address] | | | | | | [phone] | | | | | | | | +--------+---------+ + + + documented as of this encounter Visit Diagnoses Not on filedocumented in this encounter"
--- OUTSIDE RECORDS SUMMARY | ~2019-05-17 | XMS | Encounter Summary ---
Demographics + + + | Address | [address] | | | [place] [address] | + + + | Home Phone [...] Team Providers + +------+ + | Care Project Management Manager Name | Role | Phone | + +------+ + | Pending Pcp Addition | PCP | Unavailable | + +------+ + Encounter Details +--------+ + + + + | Date | Type | Department | Care Team | Description | +--------+ + + + + | 09/26/ | Telephone | Center for | Yari Garcia MD | | | 2016 | | Hematologic | [address] | | | | | Malignancies at [facility] | [address] | | | | | [address] | [place], [place] | | | | | [address] Mailcode: | [address] | | | | | [facility] | [phone] | | | | | [place], | | | | | | [place] [address] | | | | | | [phone] | | | +--------+ + + + [...] Rd | | | | | | [place], [place] | | | | | | [address] | | | | | | [phone] | | | | | | | | +--------+---------+ + + + documented as of this encounter Visit Diagnoses Not on filedocumented in this encounter"
--- OUTSIDE RECORDS SUMMARY | ~2019-05-17 | XMS | Encounter Summary ---
Demographics + + + | Address | [address] | | | [place] [address] | + + + | Home Phone [...] Providers + +------+ + | Care Chief Of Internal Medicine Name | Role | Phone | + +------+ + | Zayda Hinton | PCP | | + +------+ + Encounter Details +--------+ + + + + | Date | Type | Department | Care Team | Description | +--------+ + + + + | 05/28/ | Pharmacy | Specialty Pharmacy | | | | 2015 | Visit | Services [address] | | | | | | [address] | | | | | | [place], [place] | | | | | | [address] | | | | | | [phone] | | | +--------+ + + + [...] [place] | | | | | | [address] | | | | | | [phone] | | | | | | | | +--------+---------+ + + + documented as of this encounter Visit Diagnoses Not on filedocumented in this encounter"
--- OUTSIDE RECORDS SUMMARY | ~2019-05-17 | XMS | Encounter Summary ---
Demographics + + + | Address | [address] | | | [place] [address] | + + + | Home Phone [...] Team Providers + +------+ + | Care Amr Physician Name | Role | Phone | [...] | | | | | Encounter | [place], [place] | [address] | | | | | for | [address] | Hospital | | | | | long-term | Phone: | [place], [place] | | | | | current use | [phone] | [address] | | | | | of | Fax: | Phone: | | | | | medication | [phone] | [phone] | | | | | Procedures | | Fax: | | | | | CT SINUS WO | | [phone] | | | | | CONTRAST | | | | | | | ROUTINE | | | | | | | (LANDMARX | | | | | | | PROTOCOL) | | | | | | | PA CT | | | | | | [...] | | | | | Encounter | [place], [place] | [address] [facility] [address] [address] | | | | | for | [address] | Hospital | | | | | long-term | Phone: | [place], [place] | | | | | current use | [phone] | [address] | | | | | of | Fax: | Phone: | | | | | medication | [phone] | [phone] | | | | | Procedures | | Fax: | | | | | CT | | [phone] | | | | | MAX'FACIAL | | | | | | | WWO CONTRAST | | | | | | | PA CT | | | | | | [...] | | (HCC) | Wally Calderon | [facility] | | | | | Encounter | [place], [place] | for Health | | | | | for | [address] | and Healing, | | | | | long-term | Phone: | Building 1, | | | | | current use | [phone] | [address] | | | | | of | Fax: | [place], [place] | | | | | medication | [phone] | [address] | | | | | Procedures | | Phone: | | | | | PHYSICAL | | [phone] | | | | | THERAPY | | Fax: | | | | | REFERRAL | | [phone] | +--------+--------+ + + + + Diagnostic [...] 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 | [address] | [address] | | | | | leukemia) | Paulina Eugene | Wally Calderon | | | | | ([facility]) | Wally Calderon | Mailcode: | | | | | Encounter | [facility] [place] | [address] | | | | | for | [address] | [address] Levin | | | | | long-term | Phone: | Building | | | | | current use | [phone] | [place] | | | | | of | Fax: | [address] | | | | | medication | [phone] | Phone: | | | | | Procedures | | [phone] | | | | | TRANSTHORACI | | | | | | | C | | | | | | | ECHOCARDIOGR | | | | | | | AM, ADULT | | | | | | | PA ECHO | | | | | | [...] + + + + | 08/05/ | Outside Solar Sales Consultant | Center for | Yari Garcia MD | 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) | | | | Malignancies at | [place] Wally Calderon | (Primary Dx); | | | | Brantley[address]lyn Barry | [place], [place] | Encounter for | | | | [address] [facility] | [address] | long-term current | | | | Wally Calderon Mailcode: | [phone] | use of medication | | | | [id number] [address] | | | | | | [facility] [place], | | | | | | [place] [address] | | | | | | [phone] | | | +--------+ + + + [...] Rd | | | | | | [place], [place] | | | | | | [address] | | | | | | [phone] | | | | | | | [...] | e | 9:19 AM | leukemia) ([facility]) | procedure are in the | [...] DEPT OF | [address] | [place], [place] | | | CARDIOLOGY | [address] | [address] | | + + + + + [...] + + + + | [facility] DEPT OF | [address] | [place], [place] | | | CARDIOLOGY | [address] | [address] | | + + + + + [...] | SPECIAL | | | ION | [id number]: | | DIAGNOSTICS | | | | [...] for | | | | | | intermediate project manager meds.Dyspnea: | | | | | | [...] 6.31 | | | | | | [id number] (L) | | | | | | [...] + + + + + + | WCE02-06% | 4.12 | 5.15 L/sec | [facility] | | | PRE | | | SPECIAL | | | | | | DIAGNOSTICS | | | | | | - | | | | | | PULMONARY | | | | | | FUNCTION | | + + + + + + | CIA10-39% | 79 | % | [facility] | [...] YESSICA HARPER | [address] | [place], [place] | | | DIAGNOSTICS - | [address] | [address] | | | PULMONARY FUNCTION | | [...] 2 fold may not reflect true | [facility] | | biological changes and [...] | | | characteristics determined by the [facility] | | | Molecular Diagnostic Center. It has not been cleared or approved by | | | the Food and Drug Administration. FDA approval is not required for | | | clinical use of this test, and therefore validation was done as | | | required under the requirements of the Clinical Laboratory Improvement | | | Act of 1988. The [facility] Molecular | | | Diagnostic Center is a fully licensed and/or accredited clinical | | | laboratory under CLIA, CAP, and the [facility]. | | + + + + + + + + | Performing | Address | City/State/Zipcode | Phone Number | | Organization | | | | + + + + + | [facility] | [address] | [place] [address] | | | DIAGNOSTIC | [address] [...] at | | | | | | [email or web address] | | | | | | x. [...] at | | | | | | [email or web address] | | | | | | x. [...] at | | | | | | [email or web address] | | | | | | x. [...] at | | | | | | [email or web address] | | | | | | x.Performed by [facility] | | | | | | [facility],[address] [place] [address] | | | | | | [place] [address] | | | | | | [phone]. | | | | | | Elmo [...] [facility] | [address] | [place], [place] | | | UN[facility] P[facility] - INTFC | | [address] | | + + + + + [...] | + + + + + | [facility] - | [address] | [place] [address] | | | [place] | | | [...] + | [facility] - | [address] | [place] [address] | | | [place] | | | [...] + | [facility] - | [address] | [place] [address] | | | [place] | | | [...] | + + + + + | [facility] - | [address] | [place] [address] | | | [place] | | | [...] | | | | | | Mikhail, [facility] [place] [address] | | | | | | [phone].[email or web address]. | | | | | | timo, Elmo Roberts, | | | | | | Dilip PERERA. Director | | | | + + + + + + + + | Specimen | + + | Blood - Blood | + + + + + + + | Performing | Address | City/State/[facility] Centercode | Phone Number | | Organization | | | | + + + + + | [facility] | [address] | [place], [place] | | | UNIV P[facility] - INTFC | | [address] | | + + + + + [...] + + + + | [facility] | [address] | [place] [address] | | | SERVICESINDRA | [address] [...] [facility] | [address] | [place] [address] | | | INDRA SHARIF | WALLY [...] [facility] | [address] | [place] [address] | | | SERVICES, CORE | [address] [...] | + + + + + | [facility] | [address] | [place] [address] | | | SERVICES, CORE | WALLY [...] [facility] | [address] | [place] [address] | | | SERVICES, CORE | PARK [...] | + + + + + | GitHub | [address] | [place] [address] | | | SERVICES, CORE | WALLY [...] [facility] | [address] | [place] [address] | | | SERVICES, CORE | WALLY [...] [facility] | [address] | [place] [address] | | | SERVICES, CORE | PARK [...] | | | LABORATORY | | | TURKMEN | | | SERVICES, | | | [...] + + + + | [facility] | [address] | [place] [address] | | | SERVICES, CORE | PARK [...]
--- OUTSIDE RECORDS SUMMARY | ~2019-05-17 | XMS | Encounter Summary ---
Demographics + + + | Address | [address] | | | [place] [address] | + + + | Home Phone [...] Team Providers + +------+ + | Care Warp Hauler Name | Role | Phone | + [...] | | | | | achieved | [place], [place] | [id number] | | | | | remission | [address] | [place] | | | | | | Phone: | Pavilion | | | | | Procedures | [phone] | [place], [place] | | | | | Post BMT | Fax: | [address] | | | | | Auth to | [phone] | Phone: | | | | | included | | [phone] | | | | | facility, | | Fax: | | | | | diagnostics, | | [phone] | | | | | office | [...] 2016 | Visit | Hematologic | [address] [facility] | marrow transplant | | | | Malignancies at | [place] Debi Burger | (HCC) (Primary Dx) | | | | [facility] | [place], [place] | | | | | [address] | [address] | | | | | Debi Burger Mailcode: | [phone] | | | | | [facility] [place] | | | | | | Pavilion [place], | | | | | | [place] [address] | | | | | | [phone] | | | +--------+---------+ + + + [...] of sun exposure as this can cause lwopg-zoahhs-txed disease. Wear a hat, sungla sses, and sunscreen or long sleeves when outside. 5. Begin magnesium 133 mg by mouth twice daily. Increase your dose by 1 tablet by mouth p er day every 3 days as tolerated. Hold for loose stools 6. You do not need to come to clinic on for labs. I've sent a message to the [facility] Opt[facility] desk to ask them to cancel that [...] MM URD (DPB1 permissive antigen mismatch, male, 8956-7479-2) Identifying Data: Khurram Kelly is a 25 [...] his L ankle. He was evaluated at [place]'s ED on 06/[address] angiogram negative [...] CD34, variable CD56, variable CD117, and dim [id number] mickey; promonocyte immunophenotype (70% by flow): CD11b, [...] 1 mg capsule) by mouth twice daily. [place] 0.5 mg capsules for future use. Indications: [...] infection --> repeat marrow studies today 2. 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
--- OUTSIDE RECORDS SUMMARY | ~2019-05-17 | XMS | Encounter Summary ---
Demographics + + + | Address | [address] | | | [place] [address] | + + + | Home Phone | | + + + | Preferred Language | Unknown | + + + | Marital Status | | + + + | Quaker Affiliation | SPI | + + + [...] Team Providers + +------+ + | Care Material Loader Name | Role | Phone | + +------+ + | Zayda Hinton | PCP | | + +------+ + Encounter Details +--------+ + + + + | Date | Type | Department | Care Team | Description | +--------+ + + + + | 11/18/ | Hospital | Radiology/Imaging | Lobo Jeffers, | | | 2019 | Encounter | Lab at [facility] [address] | [address] | | | | | Deshaun Jewell Mailcode: | [address] | | | | | [place] [facility] | [facility] [place] | | | | | angela Olvera, | [address] | | | | | [facility] | [phone] | | | | | Floor [place], [place] | | | | | | [address] | | | | | | [phone] | | | +--------+ + + + [...] + + + +---------+ + + | ergocalciferol | Take 1 capsule by | 4 | 1 | 10/22/19 | | | 50,000 unit oral | mouth every seven | capsule | | 19 | 9 | | capsule | days for 8 doses. | | | | | + + [...] 2018 | Visit | Malignancy | [address] [facility] | | | | | | [address] | | | | | | [place], [place] | | | | | | [address] | | | | | | [phone] | | | | | | | | +--------+---------+ + + + documented as of this encounter Procedures + +--------+ + + + | Procedure Name | Priori | Date/Time | Associated Diagnosis | Comments | | | ty | | | | + +--------+ + + + | X-RAY HIP 2 VIEWS | Routin | 11/18/2018 | Pain of right hip | Results for this | | RIGHT W/ PELVIS 1 | e | 2:18 PM | joint | procedure are in the | | VIEW | | PDT | | results section. [...] + | Pain of right hip joint | + + documented in this encounter"
--- OUTSIDE RECORDS SUMMARY | ~2019-05-17 | XMS | Encounter Summary ---
Demographics + + + | Address | [address] | | | [place] [address] | + + + | Home Phone [...] Team Providers + +------+ + | Care Shop Laborer Name | Role | Phone | + [...] | | myelomonocyt | [address] | [place] [address] | | | | | ic leukemia, | [address] | Paulina | | | | | not having | [address] | [address] | | | | | achieved | [facility] [place] [place] | Rd Mailcode: | | | | | remission | [address] | [id number] | | | | | Procedures | Phone: | [place] | | | | | [place] | [phone] | Pavilion | | | | | AZACITIDINE | Fax: | [place], [place] | | | | | INJECTION, 1 | [phone] | [address] | | | | | [place] | | Phone: | | | | | CHM,IV | | [phone] | | | | | INFSN,1 HR | | Fax: | | | | | [place] CHM,IV | | [phone] | | | | | INFSN,ADDL | [...] | | | | | | [facility] [place] | | | | | | Asha [place], | | | | | | [place] [address] | | | | | | [phone] | | | +--------+ + + + [...] Wheelchair accompanied by spouse. Next Appointment in [facility] is on 11/02/15 at 3:20 [...] Rd | | | | | | [place], [place] | | | | | | [address] | | | | | | [phone] | | | | | | | [...] | OVERRIDE TREATMENT | | PDT | ([facility])- primary | | | PARAMETERS | | | induction failure | | + +--------+ + + + | BMP + MAG, POC CHM | Routin | 11/01/2015 | S/P allogeneic | Results for this | | | e | 10:46 AM | bone marrow | procedure are in the | | | | PDT | transplant ([facility]) | results section. 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 | | | | | induction failure | | + +--------+ + + + | CMV PCR | Routin | 11/01/2015 | S/P allogeneic | Results for this | | QUANTITATION, PLASMA | e | 10:25 AM | bone marrow | procedure are in the | | | | PDT | transplant ([facility]) | results section. 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[facility])- primary | | | | | | [...] PDT | ([facility])- primary | | | | | | induction failure | | + +--------+ + + + | NURSING | Routin | 11/01/2015 | Acute myeloid | | | COMMUNICATION #2 - | e | 10:24 AM | leukemia (AML), M4 | | | BEACON | | PDT | ([facility])- primary | | | | | | induction failure | | + +--------+ + + + | NURSING | Routin | 11/01/2015 | Acute myeloid | | | COMMUNICATION #1 - | e | 10:24 AM | leukemia (AML), M4 | | | BEACON | | PDT | ([facility])- primary | | | | | | induction failure | | + +--------+ + + + | TREATMENT PARAMETERS | Routin | 11/01/2015 | Acute myeloid | | | #1 - BEACON | e | 10:24 AM | leukemia (AML), M4 | | | | | PDT | ([facility])- primary | | | | | | induction failure | | + +--------+ + + + | TREATMENT PARAMETERS | Routin | 11/01/2015 | Acute myeloid | | | #1 - BEACON | e | 10:24 AM | leukemia (AML), M4 | | | | | PDT | ([facility])- primary | | | | | | induction failure | | + +--------+ + + + | COMPLETE METABOLIC | Urgent | 11/01/2015 | Acute myeloid | Results for this | | SET | | 10:23 AM | leukemia (AML), M4 | procedure are in the | | (NA,K,CL,CO2,BUN,CRE | | PDT | ([facility])- primary | results section. | | AT,GLUC,CA,AST,ALT,B [...] PDT | ([facility])- primary | | | | | | [...] SORTO | [address] | [place], [place] | | | RUTHIE CARTER OF [address]RISTA | [facility] | [address] | | | TESTS | | | [...] [place] | [address] | [place], [place] | | | RUTHIE CARTER OF [address]STA | [address] | [address] | | | TESTS | | | [...] | + + + + + | [facility] - | [address] | [place] [address] | | | [place] | | | | + + + [...] | + + + + + | [facility] | [address] | [place] [address] | | | SERVICES, SPECIAL | [address] [...] 2 fold may not reflect true | [facility] | | biological changes and [...] | characteristics determined by the [facility] | | | Molecular Diagnostic Center. [...] | Act of 1988. The [facility] Molecular | | | Diagnostic Center is a fully licensed and/or accredited clinical | | | laboratory under CLIA, CAP, and the [facility]. | | + + + + + + + + | Performing | Address | City/State/Zipcode | Phone Number | | Organization | | | | + + + + + | [facility] | [address] | [place] [address] | | | DIAGNOSTIC | [address] [...] | + + + + + | [facility] | [address] | [place] [address] | | | SERVICES, SPECIAL | [address] [...] YESSICA LOZA | [address] | [place] [address] | | | SERVICES, CORE | [address]ALLY [...]
--- OUTSIDE RECORDS SUMMARY | ~2019-05-17 | XMS | Encounter Summary ---
Demographics + + + | Address | [address] | | | [place] [address] | + + + | Home Phone [...] Team Providers + +------+ + | Care Mailing Machine Helper Name | Role | Phone | + +------+ + | Zayda Hinton | PCP | | + +------+ + Encounter Details +--------+ + + + + | Date | Type | Department | Care Team | Description | +--------+ + + + + | 05/24/ | Results/Int | Pulmonary Function | | Bronchiolitis | | 2017 | erpretation | Lab at [facility] [address] | | obliterans (HCC) | | | | [address] | | (Primary Dx) | | | | Mailcode: [id number] | | | | | | [address] | | | | | | [place], [place] | | | | | | [address] | | | | | | [phone] | | | +--------+ + + + [...] encounter Progress Notes Chase Lema MD - 05/29/2017 9:43 PM PST Refer to PFT report. 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
--- OUTSIDE RECORDS SUMMARY | ~2019-05-17 | XMS | Encounter Summary ---
Demographics + + + | Address | [address] | | | [place] [address] | + + + | Home Phone [...] Team Providers + +------+ + | Care Book Trimmer Name | Role | Phone | + +------+ + | Zayda Hinton | PCP | | + +------+ + Encounter Details +--------+ + + + + | Date | Type | Department | Care Team | Description | +--------+ + + + + | 11/28/ | MyChart | Orthopaedics at | | Surgery Information | | 2019 | Encounter | [facility] [address] | | | | | | [address] Mailcode: [facility] | | | | | | [facility] | | | | | | and Healing, | | | | | | | | | | | | [place], [place] | | | | | | [address] | | | | | | [phone] | | | +--------+ + + + [...] 2019 | Visit | Malignancy | [address] [facility] | | | | | | [address] | | | | | | [place], [place] | | | | | | [address] | | | | | | [phone] | | | | | | | | +--------+---------+ + + + documented as of this encounter Visit Diagnoses Not on filedocumented in this encounter"
--- OUTSIDE RECORDS SUMMARY | ~2019-05-17 | XMS | Encounter Summary ---
Demographics + + + | Address | [address] | | | [place] [address] | + + + | Home Phone [...] Providers + +------+ + | Care Sales Center Manager Name | Role | Phone | + +------+ + | Zayda Hinton | PCP | | + +------+ + Encounter Details +--------+ + + + + | Date | Type | Department | Care Team | Description | +--------+ + + + + | 05/01/ | Pharmacy | Specialty Pharmacy | | | | 2015 | Visit | Services [address] | | | | | | [address] | | | | | | [employer], [place] | | | | | | [address] | | | | | | [phone] | | | +--------+ + + + [...] 2019 | Visit | Malignancy | [address] [facility] | | | | | | [address] | | | | | | [place], [place] | | | | | | [address] | | | | | | [phone] | | | | | | | | +--------+---------+ + + + documented as of this encounter Visit Diagnoses Not on filedocumented in this encounter"
--- OUTSIDE RECORDS SUMMARY | ~2019-05-17 | XMS | Encounter Summary ---
Demographics + + + | Address | [address] | | | [place] [address] | + + + | Home Phone [...] Team Providers + +------+ + | Care Tmd Teacher Assistant Name | Role | Phone | + +------+ + | Pending Pcp Addition | PCP | Unavailable | + +------+ + Reason for Visit + + + | Reason | Comments | + + + | Medication | ISP | | Adjustment | | + + + Encounter Details +--------+ + + + + | Date | Type | Department | Care Team | Description | +--------+ + + + + | 11/29/ | Telephone | Center for | Aspen Cummins FNP | Medication | | 2016 | | Hematologic | [address] | Adjustment (ISP) | | | | Malignancies at [facility] | [address] | | | | | [address] | [place], [place] | | | | | [address] Mailcode: | [address] | | | | | [facility] | [phone] | | | | | [place], | | | | | | [place] [address] | | | | | | [phone] | | | +--------+ + + + [...] Rd | | | | | | [place] | | | | | | [address] | | | | | | [phone] | | | | | | | | +--------+---------+ + + + documented as of this encounter Visit Diagnoses Not on filedocumented in this encounter"
--- OUTSIDE RECORDS SUMMARY | ~2019-05-17 | XMS | Encounter Summary ---
Demographics + + + | Address | [address] | | | [place] [address] | + + + | Home Phone [...] Team Providers + +------+ + | Care Market Risk Specialist Name | Role | Phone | + +------+ + | Zayda Hinton | PCP | | + +------+ + Encounter Details +--------+ + + + + | Date | Type | Department | Care Team | Description | +--------+ + + + + | 05/16/ | Pharmacy | Specialty Pharmacy | | | | 2015 | Visit | Services [address] | | | | | | [address] | | | | | | [place], [place] | | | | | | [address] | | | | | | [phone] | | | +--------+ + + + [...] Rd | | | | | | [place], [place] | | | | | | [address] | | | | | | [phone] | | | | | | | | +--------+---------+ + + + documented as of this encounter Visit Diagnoses Not on filedocumented in this encounter"
--- OUTSIDE RECORDS SUMMARY | ~2019-05-17 | XMS | Encounter Summary ---
Demographics + + + | Address | [address] | | | [place] [address] | + + + | Home Phone [...] Providers + +------+ + | Care Supervisor Electronic Coils Name | Role | Phone | + [...] | | | | | remission | [address] | [facility] | | | | | | Phone: | [facility] | | | | | | [phone] | [place], [place] | | | | | | Fax: | [phone] | | | | | | [phone] | Phone: | | | | | | | [phone] | | | | | | | Fax: | | | | | | | [phone] | +--------+---------+ + + + + Encounter Details +--------+---------+ + + + | Date | Type | Department | Care Team | Description | +--------+---------+ + + + | 01/07/ | Office | Center for | Aspen Cummins FNP | S/P allogeneic bone | | 2018 | Visit | Hematologic | [address] [facility] | marrow transplant | | | | Malignancies at | [address] | (HCC) (Primary Dx) | | | | [facility] | [place], [place] | | | | | [address] | [address] | | | | | [address] Mailcode: | [phone] | | | | | [address] [facility] | | | | | | Pavilion [place], | | | | | | [place] [address] | | | | | | [phone] | | | +--------+---------+ + + + [...] + + + | Blood Pressure | 130/61 | 01/07/2018 1:29 PM | | | | | PDT | | + + + + + | Pulse | 86 | 01/07/2018 1:29 PM | | | | | PDT | | + + + + + | Temperature | 36.8 C (98.3 F) | 01/07/2018 1:29 PM | | | | | PDT | | + + + + + | Respiratory Rate | 12 | 01/07/2018 1:29 PM | | | | | PDT | | + + + + + | Oxygen Saturation | 100% | 01/07/2018 1:29 PM | | | | | PDT | | + + + + + | Inhaled Oxygen | - | - | | | Concentration | | | | + + + + + | Weight | 74 kg (163 lb 2.3 | 01/07/2018 1:29 PM | | | | oz) | PDT | | + + + + + | Height | - | - | | + + + + + | Body Mass Index | 20.94 | 10/25/2017 12:07 PM | | | | | PDT | | + + + + + documented in this encounter Patient Instructions Patient Instructions Aspen Cummins FNP - 01/07/2018 2:05 PM PDT1. We'll set you up for a test at [facility] for a test to see if your adrenal glands are working 2. You can try acupuncture, massage or chiropractic or other alternative therapies for you r neck pain and anxiety 3. Try eating something when you get up to see if that helps your jittery feeling and anxi ety. I'd recommend something that provides natural sugars with a low glycemic index like oat meal or Mike bars 4. Set up an appointment with Dr. Jeffers to talk about hip replacement 5. Decrease Cellcept to 360 mg by mouth (1 tablet) twice daily 6. Return to clinic to follow up with either Yari Garcia MD or me in 2 months, sooner as needed. 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 He was evaluated at [facility] ED on 06/[address] angiogram negative [...] acute myelomonocytic leukemia. He was referred to [facility] for further evaluation and man agement of his newly dx'd AML. Pt was admitted to [facility] on 05/26/15. Peripheral blood was sent [...] CD34, variable CD56, variable CD117, and dim HC765-abwht mickey; promonocyte immunophenotype (70% by flow): CD11b, [...] hip arthroplasty. He is currently 2 years, 4 monthss/p transplant, s/p 6 cyclesof azacitidine and returns to clinic today for scheduled follow-up. Interim History: Khurram was most recently evaluated in our [facility] by me on 10/25/17. Prednisone d/c'd at that time. Shortly thereafter he noted i ncreased anxiety and restlessness. He states he feels jittery and anxious as soon as he wake s up in the morning. Initially thought it was related to RSO dosing but he's stopped that a s well and doesn't feel it's made much difference. He is frustrated because he feels he was doing well tapering off xanax but is now back to taking this TID. Notes ongoing R hip/groin pain. He was planning to have a hip replacement this summer when his was out of school but hasn't yet scheduled an appt with Dr. Jeffers. He has recentl y applied for a free membership for cancer survivors at a local gym; this includes a year of membership, a year of personal training sessions. He is excited to be able to work out. Recently had to resign from his job due to ongoing issues of anxiety as well as the need fo r hip surgery. He was told he would be fired if he took the time off. Appetite is good and he feels he's eating well overall. Typically has a cup or two of coffe e with sugar in the morning, then breakfast mid-morning. Energy shakes later in the day. F eels his weight is stable. Specifically denies c/o ocular irritation, oral sensitivity, difficulty swallowing, SOB/ROJAS , or skin changes. Review of Systems Constitutional: Negative for chills, fever and malaise/fatigue. HENT: Negative for headaches, congestion and sore throat. Respiratory: Negative for cough and shortness of breath. Cardiovascular: Negative for chest pain and leg swelling. Gastrointestinal: Negative for abdominal pain, diarrhea, nausea and vomiting. Genitourinary: Negative for dysuria. Musculoskeletal: Positive for joint pain (R hip/groin). Negative for falls and myalgias. Skin: Negative [...] this visit. No Known Allergies Filed Vitals: 01/07/2018 1:29 PM Weight: 74 kg (163 lb 2.3 oz) BP: 130/61 Pulse: 86 Temp: 36.8 C (98.3 F) TempSrc: Oral Resp: 12 SpO2: 100% PainSc: 0 - Zero BMI: 20.94 kg/(m^2) Physical Exam Constitutional: Thin CM in NAD HENT: Head: Normocephalic and atraumatic. Mouth/Throat: No oropharyngeal exudate. Eyes: Conjunctivae are normal. [...] range of motion. He exhibits no edema. Neurological: He is alert. Skin: Skin is warm and dry. No rash noted. Psychiatric: Mood and affect normal. Vitals reviewed. Lab Results Component Value Date WBC 8.4 01/07/2018 HB 14.2 01/07/2018 HCT 41.9 01/07/2018 PLT 241 01/07/2018 MCV 92.1 01/07/2018 RDW 44.2 07/19/2017 Lab Results Component Value Date BICARB 29 01/07/2018 TBILI 0.6 01/07/2018 CA 8.9 01/07/2018 CL 102 01/07/2018 CR 1.0 01/07/2018 GLU 66 (L) 01/07/2018 AP 71 01/07/2018 TP 6.6 01/07/2018 BUN 10 01/07/2018 ALB 3.8 01/07/2018 AST 36 01/07/2018 NA 138 01/07/2018 K 4.0 01/07/2018 ALT 33 01/07/2018 Assessment/Plan: 1. 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 CBC WNL without evidence of disease by peripheral smear. --> continue CBC q8 weeks and prn --> no additional marrow studies indicated providing peripheral blood counts remain stable 2. 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 He initially responded but flared during taper. He also developed low-level nausea and abd discomfort concerning for GvHD, emp irically treated with oral non-absorbables with resolution. - He had tapered prednisone to 10 mg po daily when he developed a rash for which he was see n in the ED in [place] in late 01/21. Prednisone was increased back [...] slightly increased RV - prednisone d/c'd 10/25/17 -TODAY: Denies s/s active GvHD ContinuesMMF ER BID, prednisone 5 mg po every other day . No other s/s active GvHD. -->decrease MMF to 360 mg po BID --> continueto avoid hepatotoxins (Tylenol, EtOH) --> continue to monitor for s/s active GvHD every visit 3. Infectious Disease: Afebrile without localizing s/s infection. Continues acyclovir a lone for post-transplant prophylaxis. His most recent immune reconstitution panel collected 07/19/17 showed normal total T, B, NK cells. CD4 count 324. Post-transplant vaccines up-t o-date save MMR and PPSV23; pt is ineligible for those vaccines while he remains on IST. R eceived annual inactivated influenza vaccine on 05/24/17. --> continue acyclovir until off all IST --> Shingrix once pt off all IST --> hold MMR and PPSV23 until pt off all IST x 1 year, then re-evaluate immune status --> counseled not to smoke marijuana 4. Fluid, Electrolyte and Nutrition: Eating well with adequate po fluid intake reported. No c/o N/V/D. Weight remains stable. His electrolytes are reviewed and are within acceptable limits. Hypoglycemia noted this AM; may be contributing to morning jittery/anxiety. --> continue a well balanced diet including between meal snacks for extra calories --> advised pt to eat first thing in the morning; recommended foods with a low glycemic ind ex -->maintain adequate hydration 5. Musculoskeletal: Hx of [...] nal intervention, but pain recurring with ambulation. No longer requiring analgesics. He had been planning for hip replacement mid-summer when his is out of school but has yet to contact Dr. Jeffers's office to schedule. -->advised pt to contact Dr. Jeffers's office to schedule f/up appt if he still wants to p ursue hip replacement surgery 6. Psychosocial: Hx anxiety.This had been well controlled and pt had tapered xanax to 0 .5 mg po daily, continued RSO and marijuana tinctures. He states that after d/c'ing predniso ne, his anxiety increased and he noted increased jitteryness, nausea. --> tinctures and oils ok but again encouraged pt to avoid smoking or edibles -->continue xanax 0.5 mg po prn --> cortisol stim test to be done at [facility] in [place] to r/o adrenal insufficienc y --> again advised pt to eat first thing in the morning, foods with low glycemic index 7. Anniversary testing: Completed 07/19/17 as below. -->TSH 1.25; continue annually --> ferritin 1049, downtrending; [...] up -->RTC to f/up with me in 2 months, sooner prn [facility] AT [address] Mailcode: [address] [phone] documented in this enc ounter Plan of [...] 2019 | Visit | Malignancy | [address] [facility] | | | | | | [address] | | | | | | [place], [place] | | | | | | [address] | | | | | | [phone] | | | | | | | | +--------+---------+ + + + documented as of this encounter Procedures + +--------+ + + + | Procedure Name | Priori | Date/Time | Associated Diagnosis | Comments | | | ty | | | | + +--------+ + + + | ORDERS OTHER | | 01/07/2018 | | Results for this | | | | 12:00 AM | | procedure are in the | | | | PDT | | results section. | + +--------+ + + + documented in this encounter Results ORDERS OTHER (01/07/2018 12:00 AM PDT) + + + | [...]
--- OUTSIDE RECORDS SUMMARY | ~2019-05-17 | XMS | Encounter Summary ---
Demographics + + + | Address | [address] | | | [place] [address] | + + + | Home Phone [...] Team Providers + +------+ + | Care Vice President Of Consulting Services Name | Role | Phone | + [...] | | | | | | | [address] | | | | | | | [address] | | | | | | | [place], | | | | | | | [place] | | | | | | | [address] | | | | | | | Phone: | | | | | | | [phone] | | | | | | | Fax: | | | | | | | [phone] | +--------+--------+ + + + + Encounter [...] MPV | | | | | | [address] | | | | | | [address] Mailcode: | | | | | | [address] | | | | | | [place], | | | | | | [place] [address] | | | | | | [phone] | | | +--------+ + + + [...] Ulcerative colitis (HCC), Encounter for extracorporeal dialysis ([facility]), Kidney stones, UTI (urinary tract infection), [...] Center | | | | | | [facility] | | | | | | [place], [place] | | | | | | [address] | | | | | | [phone] | | | | | | | [...] | | | | PDT | transplant ([facility]) | results section. 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[facility])- primary | | | | [...] MACARIO | [address] | [place], [place] | | | RUTHIE CARTER OF CARE | [address] | [address] | | | TESTS | | | [...] SORTO | [address] | [place], [place] | | | [facility] CARE | [address] | [address] | | | TESTS | | | [...] [facility] | [address] | [place] [address] | | | SERVICES, CORE | PARK [...]
--- OUTSIDE RECORDS SUMMARY | ~2019-05-17 | XMS | Encounter Summary ---
Demographics + + + | Address | [address] | | | [place] [address] | + + + | Home Phone [...] Team Providers + +------+ + | Care Humanities And Languages Professor Name | Role | Phone | + +------+ + | Zayda Hinton | PCP | | + +------+ + Reason for Visit + + + | Reason | Comments | + + + | Bone Marrow Biopsy | | + + + Office Visit [...] | | | | | achieved | [place], [place] | [address] | | | | | remission | [address] | [place] | | | | | | Phone: | [facility] | | | | | Procedures | [phone] | [place], [place] | | | | | [place] EST | Fax: | [phone] | | | | | PATIENT | [phone] | Phone: | | | | | LEVEL V | | [phone] | | | | | | | Fax: | | | | | | | [phone] | + +--------+ + + + + Encounter Details +--------+---------+ + + + | Date | Type | Department | Care Team | Description | +--------+---------+ + + + | 05/15/ | Office | Center for | Aspen Cummins FNP | Pancytopenia (HCC) | | 2019 | Visit | Hematologic | [address] | (Primary Dx); Acute | | | | Malignancies at [facility] | [address] | myelomonocytic | | | | [address] | [place], [place] | leukemia in | | | | Mailcode: Center | [address] | remission (HCC); | | | | for Health and | [phone] | Disease of blood and | | | | Healing, [address] | | blood-forming | | | | [place], [place] | | organs, unspecified | | | | [address] | | ; Encounter for | | | | [phone] | | observation for | | | [...] documented as of this encounter Progress Notes Aspen Cummins FNP - 05/15/2019 2:00 PM PST05/15/2019 [facility] Procedure Note Procedure: Bone marrow aspirate and biopsy with anxiolysis. Indications: S/p URD tx for AML (08/27/15); evaluate new cytopenias. Team Pause: At 1500, prior to the beginning of the procedure the team paused to verify the patient's identity, as well as the procedure to be performed and the correct side/site. Al l equipment required was ready and available. The patient was positioned appropriately. The following team members were present during the team pause: Norma Noel RN; Yoli Yanes CASING CREW. Description: Written consent for bone marrow aspirate [...] The first aspirate yielded sufficient spicules per Belinda Craig; 1 mL was submitted for morphology studies. A second aspirate was obtained in a he parinized syringe and submitted for flow cytometry, cytogenetics, and reflex FISH. A third a spirate was obtained in an unheparinized syringe and submitted for [employer]Trails. A fourth aspi rate was obtained in an unheparinized syringe and submitted for VNTR. A fifth aspirate was o btained in an unheparinized syringe and submitted for parvovirus PCR. A total of 21 mL of m arrow was aspirated. The needle was repositioned. A [...] results should be available within the next 3 to 4 days. [facility] [address] Mailcode: [place] [address] documented in this enc ounter Plan of [...] 2018 | Visit | Malignancy | [address] [facility] | | | | | | [address] | | | | | | [place], [place] | | | | | | [address] | | | | | | [phone] | | | | | | | [...] Lab | Routin | Pancytopenia (HCC) | Expected: | | POST-TRANSPLANT, | | e | Acute | 05/15/2019, Expires: | | BONE MARROW | | | myelomonocytic | 06/14/2020 | | | | | leukemia in | | | | | | remission (HCC) | | + +------+--------+ + + | CYTOGENETICS BONE | Lab | Routin | Pancytopenia (HCC) | Expected: | | MARROW CHROMOSOME | | e | Acute | 05/15/2019, Expires: | | ANALYSIS W/ REFLEX | | | myelomonocytic | 06/14/2020 | | FISH | | | leukemia in | | | | | | remission (HCC) | | + +------+--------+ + + | GENETRAILS | Lab | Routin | Disease of blood | Expected: | | COMPREHENSIVE HEME | | e | and blood-forming | 05/15/2019, Expires: | | PANEL, BONE MARROW | | | organs, unspecified | 06/14/2020 | | | | | Pancytopenia (HCC) | | | | | | Acute | | | | | | myelomonocytic | | | | | | leukemia in | | | | | | remission (HCC) | | + +------+--------+ + + | PARVOVIRUS B19 BY | Lab | Routin | Encounter for | Expected: 05/15/2019 | | QUAL PCR | | e | observation for | (Approximate), | | | | | other suspected | Expires: 06/14/2020 | | | | | diseases and [...] | + +--------+ + + + | [place] DX BONE MARROW BX | Routin | [...] | | | | AML called to [facility] | | | | | | MD Jose at 8:50 AM on | | | | | | 05/16/2019.Case seen | | | | | | by:Carl Graff MD - | | | | | | Hematopathology | | | | | | FellowPhilipemely W Amari, | | | | | | , PhD | | | | | | | | | | | | | | | | | | HematopathologistDepartm | | | | | | ent of Pathology, [place] | | | | | | Health [...] CD123 | | | | | | [id number] HLA-DR sKappa | | | | | [...] + + + + + | [facility] DEPARTMENT OF | [address] | [place] [address] | | | PATHOLOGY | [address] | | | + + + + + | [facility] | [address] | [place] [address] | | | [facility] | | | | | HEALTH + HEALING | | | | + + + + + documented in this encounter Visit Diagnoses + + | Diagnosis | + + | Pancytopenia (HCC) - Primary Other pancytopenia | + + | 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) Acute myeloid leukemia in remission | + + | Disease of blood and blood-forming organs, unspecified | + + | Encounter for observation for other suspected diseases and conditions ruled out | + + documented in this encounter"
--- OUTSIDE RECORDS SUMMARY | ~2019-05-17 | XMS | Encounter Summary ---
Demographics + + + | Address | [address] | | | [place] [address] | + + + | Home Phone [...] Team Providers + +------+ + | Care Anodic Operator Name | Role | Phone | + +------+ + | Zayda Hinton | PCP | | + +------+ + Encounter Details +--------+ + + + + | Date | Type | Department | Care Team | Description | +--------+ + + + + | 05/12/ | Telephone | Center for | Yari Garcia MD | | | 2019 | | Hematologic | [address] | | | | | Malignancies at [facility] | [address] | | | | | [address] | [place], [place] | | | | | Mailcode: [place] | [address] | | | | | for Health and | [phone] | | | | | [address] [place] [address] | | | | | | [place], [place] | | | | | | [address] | | | | | | [phone] | | | +--------+ + + + [...] Rd | | | | | | [place], [place] | | | | | | [address] | | | | | | [phone] | | | | | | | | +--------+---------+ + + + documented as of this encounter Visit Diagnoses Not on filedocumented in this encounter"
--- OUTSIDE RECORDS SUMMARY | ~2019-05-17 | XMS | Encounter Summary ---
Demographics + + + | Address | [address] | | | [place] [address] | + + + | Home Phone [...] + +------+ + | Care Fire Lieutenant Name | Role | Phone | [...] | | | | | | | [address] | | | | | | | [address] | | | | | | | [place], | | | | | | | [place] | | | | | | | [address] | | | | | | | Phone: | | | | | | | [phone] | | | | | | | Fax: | | | | | | | [phone] | +--------+--------+ + + + + Encounter [...] | | | [address] | [place], [place] | | | | | [address] | [address] | | | | | [address] Mailcode: | [phone] | | | | | [address] | | | | | | [place], | | | | | | [place] [address] | | | | | | [phone] | | | +--------+---------+ + + + [...] x 10 days. Check out at the senior front end developer today and make your next appointments. You can also call the schedulers at [phone]. If you have any questions, or if you need prescription refills, or are experiencing any sym ptoms or side effects please call our health care assistant at [phone] documented in this encounter Progress Notes Yari Garcia MD - 08/17/2015 11:15 AM [facility] Attending Addendum I saw and examined the patient in a visit separate from the fellow's and discussed the case with Dr. eMndoza. I agree with the fellow's findings and [...] could be candidate for haplo transplant on [facility]. -would plan for tBu/CY conditioning as pt likely to have persistent disease at transplant. -transplant will be high-risk, but only curative option currently available. terminal operations supervisor kary vival at best 30%. -if high level disease burden on pre-transplant (similar to previous marrows) will refer to Dr. Pretty for consideration of bi-specific antibody study. Yari Garcia MD, [place] [facility] Directortelemetry rn [facility] [address] [place] [address] Deedee Caputo MD - 08/03/2015 7:33 PM [...] his L ankle. He was evaluated at [facility] ED on 06/[address] angiogram [...] CD34, variable CD56, variable CD117, and dim ME189-qxioj mickey; promonocyte immunophenotype (70% by flow): CD11b, [...] CD34, variable CD56, variable CD117, and dim [id number]-nmnngfkt; promonocyte immunophenotype (70% by flow): CD11b, CD13, [...] Fellow, Hematology / Oncology 1 2:06 PM PSTJhon Leblanc MA - 08/02/2015 11:27 AM PSTName [...] | | | | | | [place], [place] | | | | | | [address] | | | | | | [phone] | | | | | | | | +--------+---------+ + + + documented as of this encounter Visit Diagnoses + + | Diagnosis | + + | Acute myeloid leukemia (AML), M4 (HCC) - Primary | + + documented in this encounter"
--- OUTSIDE RECORDS SUMMARY | ~2019-05-17 | XMS | Encounter Summary ---
Demographics + + + | Address | [address] | | | [place] [address] | + + + | Home Phone [...] Team Providers + +------+ + | Care Cyber Security Engineer Name | Role | Phone | + +------+ + | No Pcp Per Patient | PCP | Unavailable | + +------+ + Encounter Details +--------+ + + + + | Date | Type | Department | Care Team | Description | +--------+ + + + + | 10/09/ | Clinical | [facility] | | | | 2017 | Support | Hematologic | | | | | Staff | Malignancies at [facility] | | | | | | [address] | | | | | | [place] Mailcode: | | | | | | [address] | | | | | | [place], | | | | | | [place] [address] | | | | | | [phone] | | | +--------+ + + + [...] ambulatory with family. Next Appointme nt in [facility] is on 10/12/16 at 11:55 [...] Rd | | | | | | [place], [place] | | | | | | [address] | | | | | | [phone] | | | | | | | [...] 6.8 | 6.1 - 7.9 g/dL | [facility] - | | | TOTAL, CMP [...] ABELARDOAM | [address] | [place], [place] | | | RUTHIE CARTER OF KRISTA | [facility] | [address] | | | TESTS | | | [...] SORTO | [address] | [place], [place] | | | RUTHIE CARTER OF KRISTA | [address] | [address] | | | TESTS | | | [...] [facility] | [address] | [place] [address] | | | SERVICES, CORE | PARK [...] | + + + + + | Venga | [address] | [place] [address] | | | SERVICES, CORE | PARK [...]
--- OUTSIDE RECORDS SUMMARY | ~2019-05-17 | XMS | Encounter Summary ---
Demographics + + + | Address | [address] | | | [place] [address] | + + + | Home Phone [...] Team Providers + +------+ + | Care Stretch Press Operator Name | Role | Phone [...] | | | | | remission | [address] | [facility] | | | | | | Phone: | [facility] | | | | | Procedures | [phone] | [place], [place] | | | | | Post BMT | Fax: | [address] | | | | | Auth to | [phone] | Phone: | | | | | included | | [phone] | | | | | facility, | | Fax: | | | | | diagnostics, | | [phone] | | | | | office | | | | | | | visits and | | | | | | | surgery | | | +--------+---------+ + + + + Encounter Details +--------+ + + + + | Date | Type | Department | Care Team | Description | +--------+ + + + + | 07/13/ | Diagnostic | Center for | | Lab Draw | | 2017 | Visit | Hematologic | | | | | | Malignancies at | | | | | | [facility] | | | | | | [address] | | | | | | [place] Mailcode: | | | | | | [facility] | | | | | | [place], | | | | | | [place] [address] | | | | | | [phone] | | | +--------+ + + + [...] this encounter Progress Notes Lincoln Hermosillo - 07/13/2016 9:15 AM PSTLeft AC accessed with a 23 gauge butterfly needle. Labs drawn and sent. Tolerated procedure well. Site dressed with sterile gauze and Coban. Patient scheduled for provider visit today with Aspen Cummins NP. Lincoln Hermosillo MA documented in this encount [...] Rd | | | | | | [place], [place] | | | | | | [address] | | | | | | [phone] | | | | | | | | +--------+---------+ + + + documented as of this encounter Procedures + +--------+ + + + | Procedure Name | Priori | Date/Time | Associated Diagnosis | Comments | | | ty | | | | + +--------+ + + + | BMP + MAG, POC CHM | Routin | 07/13/2016 | S/P allogeneic | Results for this | | | e | 9:44 AM | bone marrow | procedure are in the | | | | PST | transplant (HCC) | results section. 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 | [place], [place] | | | [address] [place] | [address] | [address] | | | TESTS | | | | + + + + + CBC+DIFF,POC (07/13/2016 9:44 AM PST) + + + + + + | Component | Value | Ref Range | Performed | Pathologist | | | | | At | Signature | + + + + + + | WBC POC | 9.1 | 4.4 - 11.0 | [facility] - [...] + + + | HCT POC | 40.8 (L) | 41.0 - 53.0 % | [facility] - | | | | | | [facility] | | | | | | RUTHIE CARTER | | | | | | OF CARE | | | | | | TESTS | | + + + + + + | MCV POC | 97.1 (H) | 80.0 - 96.0 fL | [...] + + | RDW SD, POC | 45.5 | 35.1 - 46.3 fL | [facility] - | | | | | | [facility] | | | | | | [facility]IE CARTER | | | | | | OF CARE | | | | | | TESTS | | + + + + + + | PLT POC | 246 | 150 - 400 | [facility] - [...] + + + + | NEUTROPHIL% | 65.2 | 50.0 - 70.0 % | [facility] [...] + + | MONO %, POC | 9.2 (H) | 3.5 - 9.0 % | [facility] - | | | | | | [facility] | | | | | | [facility], POINT | | | | | | OF CARE | | | | | | TESTS | | + + + + + + | EOS %, POC | 5.8 (H) | 1.0 - 3.0 % | [...] + + + + | NEUTROPHIL# | 5.9 | 1.8 - 7.7 | [facility] - [...] + | EOS #, POC | 0.5 (H) | 0.0 - 0.5 | [facility] [...] [facility] | [address] | [place], [place] | | | [facility] | [facility] | [address] | | | TESTS | | | | + + + + + LIVER SET (AST,ALT,BILI TOTAL,BILI DIRECT,ALK PHOS,ALB,PROT TOTAL) (07/13/2016 9:25 AM PST ) + +---------+ + [...] + + + | ALK PHOS | 142 (H) | 53 - 128 U/L | [...] + + + | ALT (SGPT) | 67 (H) | <=60 U/L | [facility] | [...] + + + + + | [facility] | [address] | [place] [address] | | | KOLE, INDRA | [place] [...]
--- OUTSIDE RECORDS SUMMARY | ~2019-05-17 | XMS | Encounter Summary ---
Demographics + + + | Address | [address] | | | [place] [address] | + + + | Home Phone [...] Team Providers + +------+ + | Care Accounts Receivable Supervisor Name | Role | Phone | [...] | | | | | remission | [address] | [facility] | | | | | | Phone: | [facility] | | | | | Procedures | [phone] | [place], [place] | | | | | Post BMT | Fax: | [address] | | | | | Auth to | [phone] | Phone: | | | | | included | | [phone] | | | | | facility, | | Fax: | | | | | diagnostics, | | [phone] | | | | | office | | | | | | | visits and | | | | | | | surgery | | | +--------+---------+ + + + + Encounter Details +--------+ + + + + | Date | Type | Department | Care Team | Description | +--------+ + + + + | 05/24/ | Hospital | Center for | | | | 2017 | Encounter | Hematologic | | | | | | Malignancies at [facility] | | | | | | [address] | | | | | | [place] Mailcode: | | | | | | [facility] | | | | | | [place], | | | | | | [place] [address] | | | | | | [phone] | | | +--------+ + + + [...] + documented as of this encounter Progress Mini Cline MA - 05/24/2017 12:03 PM PSTThe patient was screened for the following co ntraindications to influenza vaccine and responses were as follows: Febrile illness today? No Allergy to eggs? No Prior history of a reaction to flu vaccine? No Prior history of Guillain-Montrose syndrome? No (For patients receiving Fluarix): Allergy or sensitivity to Latex? No Influenza Vaccine information given to patient and reviewed by patient. Influenza vaccine from pharmacy given IM in right deltoid per protocol. Patient tolerated i njection well. See injection flowsheet. documented in this [...] Rd | | | | | | [place], [place] | | | | | | [address] | | | | | | [phone] | | | | | | | [...] | influenza vaccine (FLUZONE) | Given | 05/24/20 | 0.5 mL | | Right | | (PF) IM injection (age 3 years or | | 17 12:02 | | | Deltoid | | greater) 0.5 mL 0.5 mL, | | PM PST | | | | | intramuscular, ONCE, 1 dose, Lupe | | | | | | | 05/24/17 at 1200 | | | | | | + +--------+ +--------+------+---------+ +---+---+ | | | +---+---+ documented in this encounter"
--- OUTSIDE RECORDS SUMMARY | ~2019-05-17 | XMS | Encounter Summary ---
Demographics + + + | Address | [address] | | | [place] [address] | + + + | Home Phone [...] Providers + +------+ + | Care Rock Mason Name | Role | Phone | + [...] Description | +--------+--------+ + + + | 01/01/ | Refill | Center for | Yari Garcai MD | Refill Request | | 2018 | | Hematologic | [address] [facility] | | | | | Malignancies at | [facility] | | | | | [place] [address] | [place], [place] | | | | | [address] | [address] | | | | | [facility] Mailcode: | [phone] | | | | | [facility] [place] | | | | | | [place], | | | | | | [place] [address] | | | | | | [phone] | | | +--------+--------+ + + + [...] 2019 | Visit | Malignancy | [address] [facility] | | | | | | [address] | | | | | | [place] | | | | | | [address] | | | | | | [phone] | | | | | | | | +--------+---------+ + + + documented as of this encounter Visit Diagnoses Not on filedocumented in this encounter"
--- OUTSIDE RECORDS SUMMARY | ~2019-05-17 | XMS | Encounter Summary ---
Demographics + + + | Address | [address] | | | [place] [address] | + + + | Home Phone [...] Team Providers + +------+ + | Care Core Rescuer Name | Role | Phone | + +------+ + | No Pcp Per Patient | PCP | Unavailable | + +------+ + Reason for Visit + + + | Reason | Comments | + + + | Erroneous Encounter | | | - Disregard | | + + + Office Visit [...] | | | | | remission | [address] | [facility] | | | | | | Phone: | [facility] | | | | | Procedures | [phone] | [place], [place] | | | | | Post BMT | Fax: | [address] | | | | | Auth to | [phone] | Phone: | | | | | included | | [phone] | | | | | facility, | | Fax: | | | | | diagnostics, | | [phone] | | | | | office | | | | | | | visits and | | | | | | | surgery | | | +--------+---------+ + + + + Encounter Details +--------+ + + + + | Date | Type | Department | Care Team | Description | +--------+ + + + + | 04/19/ | Hospital | Center for | | | | 2017 | Encounter | Hematologic | | | | | | Malign[facility] at [facility] | | | | | | [address] | | | | | | [place] Mailcode: | | | | | | [facility] | | | | | | [place], | | | | | | [place] [address] | | | | | | [phone] | | | +--------+ + + + [...] 2019 | Visit | Malignancy | [address] [facility] | | | | | | [address] | | | | | | [place], [place] | | | | | | [address] | | | | | | [phone] | | | | | | | | +--------+---------+ + + + documented as of this encounter Visit Diagnoses + + | Diagnosis | + + | 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
--- OUTSIDE RECORDS SUMMARY | ~2019-05-17 | XMS | Encounter Summary ---
Demographics + + + | Address | [address] | | | [place] [address] | + + + | Home Phone [...] Providers + +------+ + | Care Card Punching Machine Operator Name | Role | Phone [...] | | | | | achieved | [place], [place] | [facility] | | | | | remission | [address] | [facility] | | | | | | Phone: | [facility] | | | | | Procedures | [phone] | [place], [place] | | | | | Post BMT | Fax: | [address] | | | | | Auth to | [phone] | Phone: | | | | | included | | [phone] | | | | | facility, | | Fax: | | | | | diagnostics, | | [phone] | | | | | office | [...] 2017 | Visit | Hematologic | [address] [facility] | marrow transplant | | | | Malignancies at | [place] | (HCC) (Primary Dx) | | | | [facility] | [place], [place] | | | | | [address] | [address] | | | | | [place] Mailcode: | [phone] | | | | | [facility] | | | | | | Pavilion [place], | | | | | | [place] [address] | | | | | | [phone] | | | +--------+---------+ + + + [...] encounter Progress Notes Aspen Cummins FNP - 11/02/2016 10:45 AM PDT 11/02/2016 [facility] Primary CHM MD: Yari Garcia MD Primary Oncologist: Yari Garcia MD Diagnosis: AMML, primary refractory Transplant Date: 08/27/15 Donor: MMURD (DPB1 permissive antigen mismatch, male, [id number]) Identifying Data: Khurram Kelly is a 26 [...] his L ankle. He was evaluated at [facility] ED on 06/[address] angiogram negative [...] myelomonocytic leukemia. He was referred to [facility] for further evaluation and man agement of his newly dx'd AML. Pt was admitted to [facility] on 05/26/15. Peripheral blood was [...] CD34, variable CD56, variable CD117, and dim [id number] mickey; promonocyte immunophenotype (70% by flow): CD11b, [...] s/p 6 cyclesof azacitidine and returns to [facility] today for scheduled follow-up. 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 He initially responded but flared during taper. He also developed low-level nausea and abd discomfort concerning for GvHD, emp irically treated with oral non-absorbables with resolution. - He had tapered prednisone to 10 mg po daily when he developed a rash for which he was see n in the ED in [place] in late 01/21. Prednisone was increased back [...] one patient with minimal guidance from the fax machine repairer (not the alex fax machine repairer). He is willing to give it another [...] his have contact information --> Kezia Stokes [employer] continues to support 7. Follow up -->RTC to f/u with Yari Garcia MD on , 11/09/16, sooner prn --> labs at [facility] prior [facility] [address] [facility] Mailcode: [place] [phone] documented in this enc ounter Plan of [...] | 2019 | Visit | Malignancy | [address] [place] [address] | | | | | | [address] | | | | | | [place], [place] | | | | | | [address] | | | | | | [phone] | | | | | | | | +--------+---------+ + + + documented as of this encounter Visit Diagnoses + + | Diagnosis | + + | 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
--- OUTSIDE RECORDS SUMMARY | ~2019-05-17 | XMS | Encounter Summary ---
Demographics + + + | Address | [address] | | | [place] [address] | + + + | Home Phone [...] Team Providers + +------+ + | Care Assorter Name | Role | Phone | + +------+ + | Pending Pcp Addition | PCP | Unavailable | + +------+ + Reason for Visit + + + | Reason | Comments | + + + | Lab Draw | Neostar | + + + | Intravenous infusion | Magnesium | + + + | Dressing change | Neostar-regular | + + + | Biopsy | BMBX | + + + Benefits Check (Routine) [...] | | | | | | | [address] | | | | | | | [place] | | | | | | | [place], | | | | | | | [place] | | | | | | | [address] | | | | | | | Phone: | | | | | | | [phone] | | | | | | | Fax: | | | | | | | [phone] | +--------+--------+ + + + + Encounter Details +--------+ + + + + | Date | Type | Department | Care Team | Description | +--------+ + + + + | 11/21/ | Clinical | [facility] | | Lab Draw (Neostar); | | 2015 | Support | Hematologic | | Intravenous infusion | | | Staff | [facility] | | (Magnesium); | | | | [address] | | Dressing change | | | | [place]ally Burger Mailcode: | | (Neostar-regular); | | | | [id number] | | Biopsy (BMBX) | | | | [place], | | | | | | [place] [address] | | | | | | [phone] | | | +--------+ + + + [...] encounter Progress Notes Deedee Benites, ZAFAR - 11/22/2015 12:58 PM PDTBone Marrow Biopsy Pre-procedure pain level: 0 Team Pause: At 0920 (time), prior to the beginning of the procedure, the team paused to v erify the patient s identity, the procedure to be performed (in accordance with the consen t,) and the correct side/site. The patient was positioned appropriately. All relevant images and results were properly labeled and displayed. We addressed antibiotic prophylaxis and fl uids for irrigation as applicable to this patient. Any safety precautions were addressed. Patient premedicated with Morphine 4mg IV per ORLY Yanes orders. Bone marrow biopsy [...] ON[facility] Lines & Transfusions doc flow sheet. Post-Procedure pain level: 0 Deedee Montague RN - 0 11/22/2015 8:52 AM PDTAssessment Patient ambulates into clinic today with their caregiver. Pt with hx of AML, now s/p Bu Cy conditioned URD (day 0= 08/26/2015 ), currently +88 days post transplant. Patient reports they are feeling fatigued today. Pt reports that he feels slightly run down from chemotherapy and he notes that his taste buds have changed since chemotherapy but othe rwise, he has no complaints. The patient denies colds, flu, fever, infection, nausea, vomiting, diarrhea, constipation, signs or symptoms of mucositis, edema, skin rash, urinary issues, shortness of breath and s igns or symptoms of bleeding. The patient reports that they are eating well and drinking at least two liters of fluid daily. Patient scheduled for provider visit today with ORLY Yanes. Labs Neostar accessed per protocol. Good blood return noted. Appropriate waste discarded. Lab s drawn and sent. Neostar pulse flushed with 20 mL NS. Tacrolimus Patient reports holding their dose of Tacrolimus today. They report taking 1mg AM and 1pm. This matches the medication list. Confirmed with patient and caregiver that we have the [facility] contact number for their medication change calls. Dressing Change Pre-procedure pain level: 0 Neostar intact to right anterior chest wall without erythema or induration. Dressing remov ed, skin intact without s/s exit site or tunnel infection. Using a Central Line Dressing Ch luzma kit, site cleansed with Chloraprep. Skin prep applied prior to dressing application. Biopatch applied with SorbaView dressing. Positive pressure valves changed to each port. All lumens pulse flushed with 20 mL NS & 5mL 10unit/mL heparin. Patient tolerated procedure without difficulty. Post-procedure pain level: 0 Supportive Care Magnesium Magnesium Sulfate 4 gm in 100 mL NS infused over 2 hours per supportive care orders for a m agnesium level of 1.5. For infusion details, see SEP. Infusion Patient did not require any further supportive care, per orders. Patient will RTC 11/25/15. Patient discharged home, ambulatory from clinic with his . documented in this enc ounter Plan of [...] Rd | | | | | | [place], [place] | | | | | | [address] | | | | | | [phone] | | | | | | | | +--------+---------+ + + + documented as of this encounter Procedures + +--------+ + + + | Procedure Name | Priori | Date/Time | Associated Diagnosis | Comments | | | ty | | | | + +--------+ + + + | TREATMENT PARAMETERS | Routin | 11/22/2015 | Acute myeloid | | | #1 - [facility] | e | 10:54 AM | leukemia (AML), 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 | | | | | | induction failure | | + +--------+ + + + | TREATMENT PARAMETERS | Routin | 11/22/2015 | Acute myeloid | | | #1 - [facility] | e | 10:54 AM | leukemia (AML), 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 | | | | | | induction failure | | + +--------+ + + + | TREATMENT PARAMETERS | Routin | 11/22/2015 | Acute myeloid | | | #2 - [facility] | e | 9:05 AM | leukemia (AML), 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 | | | | | | induction failure | | + +--------+ + + + | TREATMENT PARAMETERS | Routin | 11/22/2015 | Acute myeloid | | | #2 - [facility] | e | 9:05 AM | leukemia (AML), 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 | | | | | | induction failure | | + +--------+ + + + | TREATMENT PARAMETERS | Routin | 11/22/2015 | Acute myeloid | | | #2 - [facility] | e | 9:05 AM | leukemia (AML), 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 | | | | | | induction failure | | + +--------+ + + + | ENGRAFTMENT | Routin | 11/22/2015 | Acute myeloid | | | POST-TRANSPLANT, | e | 9:03 AM | leukemia (AML), M4 | | | BONE MARROW (LABEL) | | PDT | ([facility])- primary | | | | | | induction failure | | + +--------+ + + + | GENETRAILS AML/MDS | Routin | 11/22/2015 | Acute myeloid | Results for this | | GENE MUTATION PANEL, | e | 9:03 AM | leukemia (AML), M4 | procedure are in the | | BM (LABEL) | | PDT | ([facility])- primary | results section. | | | | | induction failure | | + +--------+ + + + | CYTOGENETICS BONE | Routin | 11/22/2015 | Acute myeloid | | | MARROW ALL FISH | e | 9:03 AM | leukemia (AML), M4 | | | PANEL | | PDT | ([facility])- primary | | | | | | induction failure | | + +--------+ + + + | LEUKEMIA/LYMPHOMA | Routin | 11/22/2015 | Acute myeloid | | | MARKERS - BONE | e | 9:03 AM | leukemia (AML), M4 | | | MARROW | | PDT | ([facility])- primary | | | | | | induction failure | | + +--------+ + + + | BMP + MAG, POC CHM | Routin | 11/22/2015 | S/P allogeneic | Results for this | | | e | 8:51 AM | bone marrow | procedure are [...] + + | LYMPHOCYTE | Urgent | 11/22/2015 | Acute myeloid | | | ACTIVATION(LYMPH | | 8:30 AM | leukemia (AML), M4 | | | RECONSTITUTION/ACTIV | | PDT | ([facility])- primary | | | ATE)BLOOD | | | induction failure | | + +--------+ + + + | LYMPHOCYTE | Urgent | 11/22/2015 | Acute myeloid | Results for this | | ACTIVATION(LYMPH | | 8:30 AM | leukemia (AML), M4 | procedure are in the | | RECONSTITUTION/ACTIV | | PDT | ([facility])- primary | results section. | | ATE),BLOOD | | | induction failure | | + +--------+ + + + | TREATMENT PARAMETERS | Routin | 11/22/2015 | 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:29 AM | leukemia (AML), M4 | | | | | PDT | ([facility])- primary | | | | | | induction failure | | + +--------+ + + + | NURSING | Routin | 11/22/2015 | Acute myeloid | | | COMMUNICATION #3 - | e | 8:29 AM | leukemia (AML), M4 | | | [facility] | | PDT | ([facility])- primary | | | | | | induction failure | | + +--------+ + + + | NURSING | Routin | 11/22/2015 | Acute myeloid | | | COMMUNICATION #2 - | e | 8:29 AM | leukemia (AML), M4 | | | [facility] | | PDT | ([facility])- primary | | | | | | induction failure | | + +--------+ + + + | NURSING | Routin | 11/22/2015 | Acute myeloid | | | COMMUNICATION #1 - | e | 8:29 AM | leukemia (AML), M4 | | | [facility] | | PDT | ([facility])- primary | | | | | | induction failure | | + +--------+ + + + | RBC MORPHOLOGY | Routin | 11/22/2015 | Acute myeloid | Results for this | | | e | 8:29 AM | leukemia (AML), M4 | procedure are in the | | | | PDT | ([facility])- primary | results section. | | | | | induction failure | | + +--------+ + + + | CBC AND AUTO DIFF | Urgent | 11/22/2015 | Acute myeloid | Results for this | | | | 8:29 AM | leukemia (AML), M4 | procedure are in the | | | | PDT | ([facility])- primary | results section. | | | | | induction failure | | + +--------+ + + + | CMV PCR | Routin | 11/22/2015 | S/P allogeneic | Results for this | | QUANTITATION, PLASMA | e | 8:29 AM | bone marrow | procedure are [...] + | CBC, WITH | Urgent | 11/22/2015 | Acute myeloid | Results for this | | DIFFERENTIAL | | 8:29 AM | leukemia (AML), M4 | procedure are in the | | | | PDT | ([facility])- primary | results section. | | | | | induction failure | | + +--------+ + + + | TACROLIMUS, WHOLE | Routin | 11/22/2015 | S/P allogeneic | Results for this | | BLOOD | e | 8:29 AM | bone marrow | procedure are [...] + + | ENGRAFTMENT | Routin | 11/22/2015 | Acute myeloid | Results for this | | POST-TRANSPLANT, | e | | leukemia (AML), M4 | procedure are in the | | BONE MARROW (PP) | | | ([facility])- primary | results section. | | | | | induction failure | | + +--------+ + + + | ENGRAFTMENT | Routin | 11/22/2015 | Acute myeloid | Results for this | | POST-TRANSPLANT, | e | | leukemia (AML), M4 | procedure are in the | | BONE MARROW | | | ([facility])- primary | results section. | | | | | induction failure | | + +--------+ + + + | GENETRAILS AML/MDS | Routin | 11/22/2015 | Acute myeloid | Results for this | | GENE MUTATION PANEL, | e | | leukemia (AML), M4 | procedure are in the | | BM (PP) | | | ([facility])- primary | results section. | | | | | induction failure | | + +--------+ + + + | GENETRAILS AML/MDS | Routin | 11/22/2015 | Acute myeloid | Results for this | | GENE MUTATION PANEL, | e | | leukemia (AML), M4 | procedure are in the | | BM | | | ([facility])- primary | results section. | | | | | induction failure | | + +--------+ + + + | CYTOGENETICS BONE | Routin | 11/22/2015 | Acute myeloid | Results for this | | MARROW CHROMOSOME | e | | leukemia (AML), M4 | procedure are in the | | ANALYSIS W/ REFLEX | | | ([facility])- primary | results section. | | FISH (PP) | | | induction failure | | + +--------+ + + + | LEUKEMIA/LYMPHOMA | Routin | 11/22/2015 | Acute myeloid | Results for this | | MARKERS - BONE | e | | leukemia (AML), M4 | procedure are in the | | MARROW (PP) | | | ([facility])- primary | results section. | | | | | induction failure | | + +--------+ + + + | LEUKEMIA/LYMPHOMA | Routin | 11/22/2015 | Acute myeloid | Results for this | | MARKERS - BONE | e | | leukemia (AML), M4 | procedure are in the | | MARROW | | | ([facility])- primary | results section. | | | | | induction failure | | + +--------+ + + + | CYTOGENETICS BONE | Routin | 11/22/2015 | Acute myeloid | Results for this | | MARROW CHROMOSOME | e | | leukemia (AML), M4 | procedure are in the | | ANALYSIS W/ REFLEX | | | ([facility])- primary | results section. | | FISH | | | induction failure | | + +--------+ + + + documented in this encounter Results LEUKEMIA/LYMPHOMA MARKERS - BONE MARROW (LABEL) (11/22/2015 9:03 AM PDT) + + | Specimen | + + | Bone marrow - Bone | | marrow structure | | (body structure) | + + + + + + + | Performing | Address | City/State/Zipcode | Phone Number | | Organization | | | | + + + + + | [facility] | [address] | [place] [address] | | | SERVICES, SPECIAL | [address] | | | | IMM + COAG | | | | + + + + + GENETRAILS AML/MDS GENE MUTATION PANEL, BM (LABEL) (11/22/2015 9:03 AM PDT) + + + + + [...] + + + + | [facility] | [address] | [place] [address] | | | DIAGNOSTIC | [address] | | | | LABORATORIES | | | | + + + + + CYTOGENETICS BONE MARROW CHROMOSOME ANALYSIS W/ REFLEX FISH (LABEL) (11/22/2015 9:03 AM PD T) + + | Specimen | + + | Bone marrow - Bone | | marrow structure | | (body structure) | + + + + + + + | Performing | Address | City/State/Zipcode | Phone Number | | Organization | | | | + + + + + | [facility] | [address] | [place] [address] | | | DIAGNOSTIC | [address] | | | | LABORATORIES | | | | + + + + + ENGRAFTMENT POST TRANSPLANT, BONE MARROW (LABEL) (11/22/2015 9:03 AM PDT) + + | Specimen | + + | Bone marrow - Bone | | marrow structure | | (body structure) | + + + + + + + | Performing | Address | City/State/Zipcode | Phone Number | | Organization | | | | + + + + + | [facility] | [address] [facility] | [place] [address] | | | DIAGNOSTIC | [address] | | | | LABORATORIES | | | | + + + + + BMP + MAG, POC CHM (11/22/2015 8:51 AM PDT) + +---------+ + + + [...] +---------+ + + + | CREATININE, | 0.4 (L) | 0.7 - 1.3 mg/dL | [facility] - | | | POC | | | [facility] | | | | | | RUTHIE CARTER | | | | | | OF CARE | | | | | | TESTS | | + +---------+ + + + | LDH, POC | 207 (H) | 0 - 206 U/L | [...] [facility] | [address] | [place], [place] | | | RUTHIE CARTER OF [facility] | [address] | [address] | | | TESTS | | | | + + + + + LYMPH RECONSTITUTION/ACTIVATE PANEL (LABEL) (11/22/2015 8:30 AM PDT) + + | Specimen | + + | Blood - Blood | | (substance) | + + + + + + + | Performing | Address | City/State/Zipcode | Phone Number | | Organization | | | | + + + + + | [facility] | [address] | [place] [address] | | | SERVICES, SPECIAL | [address] | | | | IMM + COAG | | | | + + + + + RBC MORPHOLOGY (11/22/2015 8:29 AM PDT) + + + + + [...] | + + + + + | [facility] [employer] [facility] | [address] | [place] [address] | | | SERVICES, CORE | [address] | | | + + + + + CBC AND AUTO DIFF (11/22/2015 8:29 AM PDT) + + + + + + | Component | Value | Ref Range | Performed | Pathologist | | | | | At | Signature | + + + + + + | WHITE CELL | 4.14 (L) | 4.40 - 11.00 | [facility] | | | COUNT | | K/cu mm | LABORATORY | | | | | | SERVICES, | | | | | | CORE | | + + + + + + | RED CELL | 3.48 (L) | 4.50 - 6.00 | [facility] | | | COUNT | | M/cu mm | LABORATORY | | | | | | SERVICES, | | | | | | CORE | | + + + + + + | HEMOGLOBIN | 12.2 (L) | 13.5 - 17.5 | [facility] | | | | | g/dL | LABORATORY | | | | | | SERVICES, | | | | | | CORE | | + + + + + + | HEMATOCRIT | 35.1 (L) | 41.0 - 53.0 % | [facility] | | | | | | LABORATORY | | | | | | SERVICES, | | | | | | CORE | | + + + + + + | MCV | 100.9 (H) | 80.0 - 96.0 [...] + + + | RDW SD | 60.3 (H) | 35.1 - 46.3 fL | [facility] | | | | | | LABORATORY | | | | | | SERVICES, | | | | | | CORE | | + + + + + + | PLATELET | 57 (L) | 150 - 400 K/cu | [facility] | | | COUNT | | mm | LABORATORY | | | | | | SERVICES, | | | | | | CORE | | + + + + + + | MPV | 9.2 (L) | 9.7 - 12.3 fL | [facility] | | | | | | LABORATORY | | | | | | SERVICES, | | | | | | CORE | | + + + + + + | NRBC% | 1.2 (H) | 0.0 - 0.3 % | [facility] | | | | | | LABORATORY | | | | | | SERVICES, | | | | | | CORE | | + + + + + + | NRBC# | 0.05 (H) | 0.00 - 0.02 | [facility] | | | | | K/cu mm | LABORATORY | | | | | | SERVICES, | | | | | | CORE | | + + + + + + | NEUTROPHIL | 46.1 (L) | 50.0 - 70.0 % | [...] + + + | MONOCYTE % | 4.6 | 3.5 - 9.0 % | [facility] | | | | | | LABORATORY | | | | | | SERVICES, | | | | | | CORE | | + + + + + + | EOS % | 0.5 (L) | 1.0 - 3.0 % | [facility] | | | | | | LABORATORY | | | | | | SERVICES, | | | | | | CORE | | + + + + + + | BASO % | 0.7 | 0.0 - 2.0 % | [facility] | | | | | | LABORATORY | | | | | | SERVICES, | | | | | | CORE | | + + + + + + | IG% | 6.3 (H)Comment: Immature | 0.0 - 0.6 % [...] + + + + | NEUTROPHIL | 1.91 | 1.80 - 7.70 | [facility] | | | # | | K/cu mm | LABORATORY | | | | | | SERVICES, | | | | | | CORE | | + + + + + + | LYMPHOCYTE | 1.73 | 1.00 - 4.80 | [facility] | | | # | | K/cu mm | LABORATORY | | | | | | SERVICES, | | | | | | CORE | | + + + + + + | MONOCYTE # | 0.19 | 0.10 - 0.90 | [facility] | [...] + + + + | IG# | 0.26 (H) | 0.00 - 0.03 | [facility] [...] | + + + + + | [facility] | [address] | [place] [address] | | | SERVICES, CORE | [address] | | | + + + + + CMV PCR QUANTITATION, PLASMA (11/22/2015 8:29 AM PDT) + + + + + [...] clinical | | | laboratory under [facility], [facility], and the [facility]. | | + + + + + + + + | Performing | Address | City/State/Zipcode | Phone Number | | Organization | | | | + + + + + | [facility] | [address], | [place] [address] | | | DIAGNOSTIC | [address] | | | | LABORATORIES | | | | + + + + + TACROLIMUS, WHOLE BLOOD (11/22/2015 8:29 AM PDT) + +-------+ + + + | Component | Value | Ref Range | Performed | Pathologist | | | | | At | Signature | + +-------+ + + + | TACROLIMUS | 9.3 | 5.0 - 15.0 | [...] | + + + + + | [facility] | [address] | [place] [address] | | | SERVICES, SPECIAL | [address] | | | | IMM + COAG | | | | + + + + + LEUKEMIA/LYMPHOMA MARKERS - BONE MARROW (PP) (11/22/2015) + + + + + + | Component | Value | Ref Range | Performed | Pathologist | | | | | At | Signature | + + + + + + | HEMATOPATHO | SOURCE OF SPECIMEN:A | | [facility] | | | LOGY | Bone Marrow Aspirate - | | DEPARTMENT | | | | 1x1ml EDTA; 1x2ml | | OF | | | | NaHepSOURCE OF | | PATHOLOGY | | | | SPECIMEN:B Bone Marrow | | | | | | ClotSOURCE OF SPECIMEN:C | | | | | | Bone Marrow | | | | | [...] | | | | | CD56, CD117, [id number] | | | | | | ([id number]), status | | | | | | post-transplant | | | | | | (08/27/2015). Final | | | | | | Pathologic | | | | | | Diagnosis:Peripheral | | | | | | blood, smear: - | | | | | | Macrocytic anemia | | | | | | - Thrombocytopenia | | | | | | Bone marrow, aspirate | | | | | | and biopsy; - | | | | | | Hypocellular marrow | | | | | | (patchy 15%) with | | | | | | trilineage hematopoiesis | | | | | | - No morphologic | | | | | | and immunologic evidence | | | | | | of acute leukemia | | | | | | Comment: Please | | | | | | correlate with pending | | | | | | cytogenetics/FISH and | | | | | | molecularstudies. | | | | | | Case seen by:Juju Wilson, | | | | | | M.Allegra,Ph.D./Surgical | | | | | | Pathology ResidentKen | | | | | | August Kapoor/Pathologist | | | | | | Gross | | | | | | Description:Peripheral | | | | | | blood, bone marrow | | | | | | aspirate, biopsy, touch | | | | | | preparation, and | | | | | | clotwere received and | | | | | | processed. The core | | | | | | biopsy consists of 1 | | | | | | core measuring2.8 (L) cm | | | | | | in greatest dimension. | | | | | | Both clot and the | | | | | | fragment biopsy | | | | | | werefixed in formalin | | | | | | and the core biopsy was | | | | | | decalcified. | | | | | | Anti-coagulated | | | | | | bonemarrow aspirate was | | | | | | also received for flow | | | | | | cytometric | | | | | | analysis. AWright-stain | | | | | | ed cytoprep of the cell | | | | | | suspension was prepared | | | | | | for | | | | | | morphologiccorrelation | | | | | | with the flow cytometry | | | | | | results. | | | | | | Microscopic | | | | | | Description:Peripheral | | | | | | Blood Smear: Morphologic | | | | | | review of the | | | | | | peripheral blood | | | | | | smearcorrelates with | | | | | | reported CBC values. The | | | | | | red blood cells show | | | | | | minimalanisopoikilocytos | | | | | | is and are macrocytic. | | | | | | No nucleated red blood | | | | | | cells areseen. | | | | | | Neutrophils show normal | | | | | | nuclear lobation and | | | | | | cytoplasmic | | | | | | granularity.Monocytes | | | | | | are mature. No | | | | | | circulating blasts are | | | | | | identified. | | | | | | Occasionalimmature | | | | | | granulocytes are | | | | | | identified. The | | | | | | lymphocytes are small | | | | | | and mature.Platelets are | | | | | | decreased in number and | | | | | | are normal in size and | | | | | | granularity. Bone | | | | | | Marrow Aspirate: The | | | | | | bone marrow aspirate | | | | | | smears are adequate | | | | | | andcontain particles for | | | | | | evaluation. There is | | | | | | full maturation of | | | | | | myeloid anderythroid | | | | | | lineages without | | | | | | significant dysplastic | | | | | | changes, but | | | | | | mildmegaloblastic | | | | | | erythropoiesis. The | | | | | | myeloid to erythroid | | | | | | ratio is | | | | | | 1.9:1.Megakaryocytes are | | | | | | present and demonstrate | | | | | | a normal spectrum of | | | | | | size andnuclear | | | | | | lobation. Lymphocytes | | | | | | are predominately small | | | | | | and mature | | | | | | appearing.Blasts are not | | | | | | increased. Plasma cells | | | | | | are not increased. The | | | | | | touchimprints show | | | | | | similar findings. | | | | | | A bone marrow aspirate | | | | | | differential count | | | | | | includes: Myeloid | | | | | | [id number]%, erythroid | | | | | | precursors 34%, | | | | | | lymphocytes 3%, blasts | | | | | | 0%, plasma cells 0%. | | | | | | Bone Marrow Biopsy | | | | | | and Clot Section: The | | | | | | bone marrow biopsy has | | | | | | 2.6 cm ofevaluable | | | | | | marrow. Cellularity is | | | | | | approximately 15% and | | | | | | the composition | | | | | | issimilar to the | | | | | | aspirate. There is | | | | | | trilineage | | | | | | hematopoiesis. No | | | | | | atypicallymphoid cell | | | | | | clusters or increase in | | | | | | blasts is identified. | | | | | | Megakaryocytesare | | | | | | normal. The clot section | | | | | | shows findings similar | | | | | | to the biopsy. | | | | | | Immunologic Analysis:The | | | | | | analysis was performed | | | | | | by flow cytometry on the | | | | | | bone marrow | | | | | | aspirate.CD34/CD117+ | | | | | | myeloid blasts comprise | | | | | | <1% of total CD45+ | | | | | | cells. Maturingmyeloid | | | | | | precursors and monocytic | | | | | | cells demonstrate a | | | | | | normal pattern | | | | | | ofmyelomonocytic antigen | | | | | | expression. Lymphocytes | | | | | | account for 37% of | | | | | | CD45+cells and include | | | | | | 76% T cells, 5% B cells | | | | | | and 19% NK cells. T | | | | | | cells show areversed | | | | | | CD4:CD8 ratio of 0.4:1 | | | | | | without aberrant antigen | | | | | | expression. Bcells are | | | | | | polytypic by surface | | | | | | light chain expression. | | | | | | Please see below | | | | | | forantibodies tested: | | | | | | Antibodies Tested | | | | | | CD2 sCD3 CD4 CD5 | | | | | | CD7 CD8 CD10 | | | | | | [id number] CD14 CD15 CD16 | | | | | | CD19 CD20 CD33 [id number] | | | | | | CD45 CD56 CD58 CD64 | | | | | | CD71 CD117 | | | | | | [id number] sLambda | | | | | | HLA-DR | | | | | | (Immunohistochemical | | | | | | analysis (IHC) allows | | | | | | assessment | | | | | | ofimmunoarchitecture, | | | | | | which is not supplied by | | | | | | flow cytometry, whereas | | | | | | flowcytometry enables | | | | | | better assessment of | | | | | | clonality and antigen | | | | | | aberrancy thanIHC). | | | | | | (Analyte [...] Laboratory | | | | | | Data:11/22/2015 08:29AM | | | | | | | | | | | | Ref Range | | | | | | Value WHITE CELL | | | | | | COUNT 4.40-11.00 | | | | | | K/cu mm 4.14 (L)RED | | | | | | CELL COUNT 4.50-6.00 | | | | | | M/cu mm 3.48 | | | | | | (L)HEMOGLOBIN | | | | | | 13.5-17.5 g/dL 12.2 | | | | | | (L)HEMATOCRIT | | | | | | 41.0-53.0 % 35.1 | | | | | | (L)MCV 80.0-96.0 fL | | | | | | 100.9 (H)MCHC 33.0-35.5 | | | | | | g/dL 34.8RDW SD | | | | | | 35.1-46.3 fL 60.3 | | | | | | (H)PLATELET COUNT | | | | | | 150-400 K/cu mm 57 | | | | | | (L)MPV 9.7-12.3 fL | | | | | | 9.2 (L)NRBC% | | | | | | 0.0-0.3 % 1.2 (H)NRBC# | | | | | | 0.00-0.02 K/cu mm | | | | | | 0.05 (H)NEUTROPHIL % | | | | | | 50.0-70.0 % 46.1 | | | | | | (L)LYMPHOCYTE % | | | | | | 18.0-42.0 % | | | | | | 41.8MONOCYTE % | | | | | | 3.5-9.0 % 4.6EOS % | | | | | | 1.0-3.0 % 0.5 (L)BASO % | | | | | | 0.0-2.0 % | | | | | | 0.7IMMATURE GRANULOCYTE% | | | | | | 0.0-0.6 % 6.3 | | | | | | (H)Comments: [...] mm | | | | | | 1.91LYMPHOCYTE # | | | | | | 1.00-4.80 K/cu mm | | | | | | 1.73MONOCYTE # | | | | | | 0.10-0.90 K/cu mm | | | | | | 0.19EOS # | | | | | | 0.00-0.50 K/cu mm | | | | | | 0.02BASO # | | | | | | 0.00-0.10 K/cu mm | | | | | | 0.03IMMATURE | | | | | | GRANULOCYTE# | | | | | | 0.00-0.03 K/cu mm | | | | | | 0.26 (H) | | | | | | | | | | | | ANISOCYTOSIS | | | | | | 1+(10-25cells/HPF)MACROC | | | | | | YTOSIS | | | | | | 1+(10-25cells/HPF) | | | | | | My electronic signature | | | | | [...] Kapoor | | | | | | Emanuel | | | | | | florin Signed 11/23/2015 | | | | | | 11:39AM | | | | + + + [...] + + + + + | [facility] | [address] | [place] [address] | | | PATHOLOGY | [address] | | | + + + + + GENETRAILS AML/MDS GENE MUTATION PANEL, BM (PP) (11/22/2015) + + + + + + | [...] | | | | | Sample tested: Bone | | | | | | Marrow Aspirate | | | | | | (Collected 11/22/15) | | | | | | GeneTrailsTM AML/ MDS | | | | | | Panel: Mutation | | | | | | Screening by | | | | | | Next-GenerationSequencin | | | | | | g: The following | | | | | | persistent gene variant | | | | | | has been found in | | | | | | thispost-transplant bone | | | | | | marrow sample from a | | | | | | patient with a history | | | | | | of acutemyelomonocytic | | | | | | leukemia. The | | | | | | persistence of this IL7R | | | | | | variant at ~50%allele | | | | | | frequency | | | | | | post-transplant in the | | | | | | morphologic/immunophenot | | | | | | ypicabsence of disease | | | | | | strongly suggests that | | | | | | it is a benign | | | | | | [...] | | | | | detection ~0.5%). No | | | | | | new gene mutationshave | | | | | | been identified in this | | | | | | specimen. Gene: | | | | | | [id number]: | | | | | | p.S185I (likely benign | | | | | | germline polymorphism of | | | | | | donor origin)Variant | | | | | | Allele frequency: ~50% | | | | | | (similar to the 09/27/15 | | | | | | bone marrow) | | | | | | Average# of | | | | | | DNA sequence reads (ie, | | | | | | depth of coverage) for | | | | | | each of the 41genes: | | | | | | 2105 Each | | | | | | of the 41 genes listed | | | | | | below contained no | | | | | | detectable mutation, | | | | | | [...] | | | | | JAK2 100% SUZ12 | | | | | | 93%DNMT3A 100% JAK3 | | | | | | 90% TET2 (exon 3) | | | | | | 100%ETV6 100% KDM6A | | | | | | 97% TP53 100%EZH2 | | | | | | 100% KIT 100% U2AF1 | | | | | | 100%FBXW7 96% | | | | | | KRAS 100% WT1 | | | | | | 87%FLT3 100% MPL | | | | | | 100% ZRSR2 | | | | | | 100%GATA1 100% | | | | | | NOTCH1 93%*Percent | | | | | | of [...] | | | in theabove panel of 41 | | | | | | genes, [...] | | | | | | panel covers targeted | | | | | | exons and flanking | | | | | | intronic sequences for | | | | | | each ofthe 41 listed | | | | | | genes. The gene segments | | | | | | that are not | | | | | | consistentlywell-covered | | | | | | by massively parallel | | | | | | sequencing have been | | | | | | alternativelysequenced | | | | | | by routine Sameera | | | | | | dideoxy sequencing | | | | | | methods. A list of the | | | | | | genesegments that are | | | | | | incompletely covered by | | | | | | the combination of | | | | | | massivelyparallel and | | | | | | Sameera sequencing are | | | | | [...] supplementary | | | | | | fwt-jdlkiyrvie-hansz | | | | | | assay [...] | | | | | | IL7R [id number] | | | | | | c.554G>T hg19 chr5 | | | | | | [id number] G | | | | | | T Case | | | | | | reviewed by:Jyoti | | | | | | MD Tommy/Molecular | | | | | | Genetic Pathology | | | | | | FellowPhilipp Raess, | | | | | | M.D, | | | | | | PhD/Hematopathologist [...] | | | | | determined by [facility] | | | | | | [facility] | | | | | | Laboratories; CLIA # | | | | | | [id number]. It has not | | | | [...] | | | | | determined bythe [facility] | | | | | [...] | | | | | | The [facility] | | | | | | DiagnosticsLaboratories | | | | | | are fully licensed by | | | | | | the state of [place] | | | | | | under CLIA and | | | | | | areaccredited by [place] | | | | | | of Citizen [place] | | | | | | Pathologists (CAP). | | | | | | Rendering | | | | | | Diagnostician: Nicanor | | | | | | Rusty Fitzpatrick M.D., | | | | | | Ph.D.PathologistElectron | | | | | | krystyna Signed 12/09/2015 | | | | | | 10:41AM | | | | + + + [...] + + + + | [facility] | [address], | [place] [address] | | | DIAGNOSTIC | [address] | | | | LABORATORIES | | | | + + + + + CYTOGENETICS BONE MARROW CHROMOSOME ANALYSIS W/ REFLEX FISH (PP) (11/22/2015) + + + + + + | Component | Value | Ref Range | Performed | Pathologist | | | | | At | Signature | + + + + + + | CHROMOSOME | Bone Marrow: Full | | [facility] | | | REPORT | StudyReasons for | | DIAGNOSTIC | | | | Referral: Acute | | | | | | Myelogenous Leukemia | | LABORATORIE | | | | Chromosome | | S | | | | Results:NormalKARYOTYPE | | | | | | RESULTS: 46,XY[19] | | | | | | IMPRESSIONS AND | | | | | | RECOMMENDATIONS:Nineteen | | | | | | of twenty metaphase | | | | | | cells examined appeared | | | | | | normal male; one | | | | | | cell,not counted above, | | | | | | had a non-specific | | | | | | change. Thank you | | | | | [...] Level: | | | | | | 500-550Number of | | | | | | [...] clinical | | | | | | director of preclinical research. | | | | | | Rendering | | | | | | Diagnostician: Sam | | | | | | Kamari Kaba, ABMG, | | | | | | FACMGClinical | | | | | | CytogeneticistElectronic | | | | | | kirsteny Signed 11/30/2015 | | | | | | 2:56PMRendering | | | | | | Diagnostician: Aspen | | | | | | Joceline PERERA, ABMG, | | | | | | FACMGClinical | | | | | | GeneticistElectronically | | | | | | Signed 11/30/2015 | | | | | | 5:41PM | | | | + + + [...] + + | [facility] | [address] | [place] [address] | | | DIAGNOSTIC | [address] | | | | LABORATORIES | | | | + + + + + ENGRAFTMENT POST TRANSPLANT, BONE MARROW (PP) (11/22/2015) + + + + + + | [...] NMDP | | | | | | [id number] | | | | | | indications: Acute | | | | | | Myeloid Leukemia | | | | | | Patient [...] | | | | | | STRloci [id number], vWA, | | | | | | FGA, [id number], [id number], | | | | | | [id number], [id number], [id number], | | | | | | [id number],and amelogenin | | | | | | [...] | | | | | determined bythe [facility] | | | | | [...] | | | | | | The [facility] | | | | | | DiagnosticsLaboratories | | | | | | are fully licensed by | | | | | | the state of [place] | | | | | | under CLIA and | | | | | | areaccredited by [employer] | | | | | | of [place] | | | | | | Pathologists (CAP). | | | | | | Rendering | | | | | | Diagnostician: Loli | | | | | | Carol Kaba, ABMG, | | | | | | FACMGClinical Molecular | | | | | | GeneticistElectronically | | | | | | Signed 11/25/2015 | | | | | | 3:53PMRendering | | | | | | Diagnostician: Aspen | | | | | | Joceline PERERA, ABMG, | | | | | | FACMGClinical | | | | | | GeneticistElectronically | | | | | | Signed 11/25/2015 | | | | | | 4:49PM | | | | + + + [...] | [facility] | [address] | [place] [address] | | | DIAGNOSTIC | [address] | | | | LABORATORIES | | | | + + + + + documented in this encounter Visit Diagnoses + + | Diagnosis | + + | Acute myeloid leukemia (AML), 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 - Primary | + [...] 10 unit/mL IV flush | Given | 11/22/19 | 50 Units | | | | syringe 50 Units 50 Units, | | 16 10:52 | | | | | Intracatheter, NEEDED, | | AM PDT | | | | | Starting 11/22/15 at 0832, | | | | | | | Until Sun11/22/15 at 1654, line | | | | | | | patency | | | | | | + +--------+ + +------+------+ +-------+ + +---+---+ | Given | 11/22/19 | 50 Units | | | | | 16 10:51 | | | | | | AM PDT | | | | +-------+ + +---+---+ | Given | 11/22/19 | 50 Units | | | | | 16 10:50 | | | | | | AM PDT | | | | +-------+ + +---+---+ +---+---+ | | | +---+---+ + +---------+ +-----+---+---+ | magnesium sulfate in water IV | New Bag | 11/22/19 | 2 g | | | | (RTU) 2 g 2 g, intravenous, | | 16 8:47 | | | | | ONCE, 1 dose, 11/22/15 at 0845 | | AM PDT | | | | + +---------+ +-----+---+---+ +---+---+ | | | +---+---+ + +---------+ +-----+---+---+ | magnesium sulfate in water IV | New Bag | 11/22/19 | 2 g | | | | (RTU) 2 g 2 g, intravenous, | | 16 9:20 | | | | | ONCE, 1 dose, 11/22/15 at 0915 | | AM PDT | | | | + +---------+ +-----+---+---+ +---+---+ | | | +---+---+ + +---------+ +------+---+---+ | morphine injection 4 mg 4 mg, | New Bag | 11/22/19 | 4 mg | | | | intravenous, ONCE, 1 dose, Mon | | 16 9:28 | | | | | 11/22/15 at 0930 | | AM PDT | | | | + +---------+ +------+---+---+ +---+---+ | | | +---+---+ documented in this encounter"
--- OUTSIDE RECORDS SUMMARY | ~2019-05-17 | XMS | Encounter Summary ---
Demographics + + + | Address | [address] | | | [place] [address] | + + + | Home Phone [...] Providers + +------+ + | Care Clinical Biostatistician Name | Role | Phone | + [...] | | | | [facility] | | | | both hips | Rd | Rd [place], | | | | | [facility] | [place], [place] | [place] | | | | | Procedures | [address] | [address] | | | | | REQUEST TO | Phone: | Phone: | | | | | SURGERY | [phone] | [phone] | | | | | SENIOR FIREWALL ENGINEER | Fax: | Fax: | | | | | DE TOTAL HIP | [phone] | [phone] | | | | | | | | | | | | ARTHROPLASTY | | | +--------+--------+ + + + + Encounter Details +--------+---------+ + + + | Date | Type | Department | Care Team | Description | +--------+---------+ + + + | 09/20/ | Office | Orthopaedics at | Kel Das, | Avascular necrosis | | 2017 | Visit | [facility] [address] | Janette Ruiz PA-C 8192 | of bone of left hip | | | | [address] | [place] [facility] | (HCC) (Primary Dx); | | | | Mailcode: [id number] | [place], [place] | Status post total | | | | [facility] | [address] | replacement of left | | | | [place], [place] | [phone] | hip | | | | [address] | | | | | | [phone] | | | +--------+---------+ + + + [...] Temperature | 37.3 C (99.2 F) | 09/20/2016 10:53 AM | | | [...] + + + + | Weight | 82.6 kg (182 lb) | 09/20/2016 10:53 AM | | | | | PDT | | + + + + + | Height | 190.5 cm (6' 3") | 09/20/2016 10:53 AM | | | | | PDT | | + + + + + | Body Mass Index | 22.75 | 09/20/2016 10:53 AM | | | | | PDT | | + + + + + documented in this encounter Progress Notes Janette Claire PA-C - 09/20/2016 10:45 AM PDTDX: AML s/p bone marrow transplant AVN bilateral hips Left hip pain Procedure: Left total hip arthroplasty 09/07/16 History: Khurram Kelly is a 26 y.o. male 2 weeks s/p left CHRISTIE. Currently he is WBAT on his left leg with a cane for assistance. Pain is well-controlled with oxycontin. No problems with incision, fevers or chills. he is on aspirin for DVT prophylaxis. Exam: General: Alert and oriented x 3, no distress Temp (Src) 37.3 C (99.2 F) (Oral) | Ht 1.905 m (6' 3") | Wt 82.6 kg (182 lb) | BMI 22.7 5 kg/(m^2) Musk: Exam of the left hip demonstrates incision healing well without signs of infection. N o pain with gentle hip ROM. Calf soft and non tender. Active ankle DF/PF. Minimal LE edema. Good DP pulse Imaging: None today A/P: Khurram Kelly is a 26 y.o. male 2 weeks s/p Left CHRISTIE - Pt to be WBAT, posterior hip precautions - Complete course of aspirin as prescribed for DVT prophylaxis. May resume ibuprofen for pa in control. Oxycontin refilled. - F/U in 4 weeks or sooner if problems. - Advised pt to call or return to clinic for any development of fevers/chills, redness or d rainage from wound. - Imaging studies to be done prior to next visit 2 views L hip with AP pelvis. Janette Das PA-C ORTHOPAEDICS AT [address] Mailcode: [address] [place] [address] documented i n this encounter [...] Debi | | | | | | [place], [place] | | | | | | [address] | | | | | | [phone] | | | | | | | | +--------+---------+ + + + documented as of this encounter Visit Diagnoses + + | Diagnosis | + + | Avascular necrosis of bone of left hip (HCC) - Primary | + + | Status post total replacement of left hip | + + documented in this encounter
--- OUTSIDE RECORDS SUMMARY | ~2019-05-17 | XMS | Encounter Summary ---
Demographics + + + | Address | [address] | | | [place] [address] | + + + | Home Phone [...] Team Providers + +------+ + | Care [facility] Name | Role | Phone | + +------+ + | Zayda Hinton | PCP | | + +------+ + Encounter Details +--------+ + + + + | Date | Type | Department | Care Team | Description | +--------+ + + + + | 12/22/ | Pharmacy | Specialty Pharmacy | | | | 2015 | Visit | Services [address] | | [address] | | | | | | [place], [place] | | | | | | [address] | | | | | | [phone] | | | +--------+ + + + [...] Rd | | | | | | [place], [place] | | | | | | [address] | | | | | | [phone] | | | | | | | | +--------+---------+ + + + documented as of this encounter Visit Diagnoses Not on filedocumented in this encounter"
--- OUTSIDE RECORDS SUMMARY | ~2019-05-17 | XMS | Encounter Summary ---
Demographics + + + | Address | [address] | | | [place] [address] | + + + | Home Phone [...] Team Providers + +------+ + | Care Peoplesoft Hrms Developer Name | Role | Phone | [...] [address] | | | | | [place] | | [address] | | | | | [address] | | [address] [place], | | | | | [address]JE[address], [address] | | [place] | | | | | [place] | | [address] | | | | | CH[facility],IV | | Phone: | | | | | INFSN,1 [place] | | [phone] | | | | | [place] | | Fax: | | | | | INFSN,ADDL | | [phone] | | | | | [place] | | | +--------+--------+ + + + + Encounter Details +--------+ + + + + | Date | Type | Department | Care Team | Description | +--------+ + + + + | 07/20/ | Clinical | Center for | | | | 2016 | Support | Hematologic | | | | | Staff | Malignancies at [facility] | | | | | | [address] | | | | | | [address] Mailcode: | | | | | | [id number] [place] | | | | | | [place], | | | | | | [place] [address] | | | | | | [phone] | | | +--------+ + + + [...] Hospital | | | | | | [facility] | | | | | | [place], [place] | | | | | | [address] | | | | | | [phone] | | | | | | | [...]
--- OUTSIDE RECORDS SUMMARY | ~2019-05-17 | XMS | Encounter Summary ---
Demographics + + + | Address | [address] | | | [place] [address] | + + + | Home Phone [...] Team Providers + +------+ + | Care Mainspring Fabrication Supervisor Name | Role | Phone | + +------+ + | Pending Pcp Addition | PCP | Unavailable | + +------+ + Reason for Visit + + + | Reason | Comments | + + + | Lab Draw | P PICC | + + + | Other | Line check after TPA on 08/09 | + + + Benefits Check (Routine) [...] | | | | | | | [address] | | | | | | | [address] | | | | | | | [place], | | | | | | | [place] | | | | | | | [address] | | | | | | | Phone: | | | | | | | [phone] | | | | | | | Fax: | | | | | | | [phone] | +--------+--------+ + + + + Encounter Details +--------+ + + + + | Date | Type | Department | Care Team | Description | +--------+ + + + + | 08/11/ | Clinical | Center for | | Lab Draw (P PICC); | | 2015 | Support | Hematologic | | Other (Line check | | | Staff | Malignancies at [facility] | | after TPA on 08/09) | | | | [address] | | | | | | [place] Mailcode: | | | | | | [id number] | | | | | | [place], | | | | | | [place] [address] | | | | | | [phone] | | | +--------+ + + + [...] + + + | Blood Pressure | 119/68 | 08/11/2015 2:46 PM | | | | | PST | | + + + + + | Pulse | 56 | 08/11/2015 2:46 PM | | | | | PST | | + + + + + | Temperature | 36.7 C (98.1 F) | 08/11/2015 2:46 PM | | | | | PST | | + + + + + | Respiratory Rate | 16 | 08/11/2015 2:46 PM | | | | | PST | | + + + + + | Oxygen Saturation | 100% | 08/11/2015 2:46 PM | | | | | PST | | + + + + + | Inhaled Oxygen | - | - | | | Concentration | | | | + + + + + | Weight | 82.4 kg (181 lb 10.5 | 08/11/2015 2:46 PM | | | | oz) | PST | | + + + + + | Height | - | - | | + + + + + | Body Mass Index | 23.01 | 07/15/2015 1:57 PM | | | | | PST | | + + + + + documented in this encounter Progress Notes Mirza Carlin RN - 08/11/2015 2:57 PM PSTPt denied fever, chills, bleeding, diarrhea, constipation, mouth sores, or nausea and able to drink at least 2 L oral fluids at home. Pt stated that he went for bowling and his energy level is good. - Neutropenic precaution w as discussed. ON 08/09: Alteplase was instilled @ [facility]. - Positive blood return noted after 2 days of instillation time. 5 mL blood aspirated and discarded. Power PICC flushed with 20 mL NS. Power PICC accessed per protocol. Good blood return noted. Appropriate waste discarded. Labs drawn and sent. Power PICC pulse flushed with 20 mL NS. NMDP was collected and given to Jonelle after consented. Plt @ 12 and Hct @ 22.1 - Audrey Cummins NP, was notified. - No PLT/PRBC today - Pt RTC Sunday. Pt stated understanding to practice low blood count precautions and call the clinic if feve r, chills, bleeding, or any concerns. Stable with ambulation and DC home with family. RTC Sunday. Rashes with PRBC not with Plt : 08-09-2015- Requested via follow up to Dr. Garcia if she can pl [place] PRBC pre-med Benadryl - has only PRN Benadryl. documented in this encounter Plan of Treatment [...] 2018 | Visit | Malignancy | [address] | | | | | | [address] | | | | | | [place], [place] | | | | | | [address] | | | | | | [phone] | | | | | | | | +--------+---------+ + + + documented as of this encounter Procedures + +--------+ + + + | Procedure Name | Priori | Date/Time | Associated Diagnosis | Comments | | | ty | | | | + +--------+ + + + | CBC+DIFF,POC | Routin | 08/11/2015 | Acute myeloid | Results for this | | | e | 2:48 PM | leukemia (AML), M4 | procedure are in the | | | | PST | ([facility]) | results section. | + +--------+ + + + | CMP, POC (BMP+LFT) | Routin | 08/11/2015 | Acute myeloid | Results for this | | | e | 2:48 PM | leukemia (AML), M4 | procedure are in the | | | | PST | ([facility]) | results section. | + +--------+ + + + | LDH TOTAL, PLASMA | Routin | 08/11/2015 | Acute myeloid | Results for this | | | e | 2:33 PM | leukemia (AML), M4 | procedure are in the | | | | PST | ([facility]) | results section. | + +--------+ + + + | TREATMENT PARAMETERS | Routin | 08/11/2015 | Acute myeloid | | | #2 - [facility] | e | 2:32 PM | leukemia (AML), M4 | | | | | PST | (HCC) | | + +--------+ + + + | TREATMENT PARAMETERS | Routin | 08/11/2015 | Acute myeloid | | | #2 - [facility] | e | 2:32 PM | leukemia (AML), M4 | | | | | PST | (HCC) | | + +--------+ + + + | TREATMENT PARAMETERS | Routin | 08/11/2015 | Acute myeloid | | | #2 - [facility] | e | 2:32 PM | leukemia (AML), M4 | | | | | PST | (HCC) | | + +--------+ + + + | TREATMENT PARAMETERS | Routin | 08/11/2015 | Acute myeloid | | | #2 - [facility] | e | 2:32 PM | leukemia (AML), M4 | | | | | PST | (HCC) | | + +--------+ + + + | TREATMENT PARAMETERS | Routin | 08/11/2015 | Acute myeloid | | | #2 - [facility] | e | 2:32 PM | leukemia (AML), M4 | | | | | PST | ([facility]) | | + +--------+ + + + | NURSING | Routin | 08/11/2015 | Acute myeloid | | | COMMUNICATION #3 - | e | 2:32 PM | leukemia (AML), M4 | | | [facility] | | PST | ([facility]) | | + +--------+ + + + | NURSING | Routin | 08/11/2015 | Acute myeloid | | | COMMUNICATION #2 - | e | 2:32 PM | leukemia (AML), M4 | | | [facility] | | PST | (HCC) | | + +--------+ + + + | NURSING | Routin | 08/11/2015 | Acute myeloid | | | COMMUNICATION #1 - | e | 2:32 PM | leukemia (AML), M4 | | | [facility] | | PST | (HCC) | | + +--------+ + + + | TREATMENT PARAMETERS | Routin | 08/11/2015 | Acute myeloid | | | #1 - [facility] | e | 2:32 PM | leukemia (AML), M4 | | | | | PST | (HCC) | | + +--------+ + + + | TREATMENT PARAMETERS | Routin | 08/11/2015 | Acute myeloid | | | #1 - [facility] | e | 2:32 PM | leukemia (AML), M4 | | | | | PST | ([facility]) | | + +--------+ + + + documented in this encounter Results PHIL ALCAZAR (08/11/2015 2:48 PM PST) + +---------+ + + + | Component | Value | Ref Range | Performed | Pathologist | | | | | At | Signature | + +---------+ + + + | SODIUM, POC | 144 (H) | 134 - 143 | [facility] [...] +---------+ + + + | CHLORIDE, | 110 (H) | 97 - 108 mmol/L | [...] + + + | ALK PHOS, | 69 | 41 - 99 U/L | [facility] [...] + + + | AST, CMP | 30 | 0 - 41 U/L | [facility] [...] +---------+ + + + | PROTEIN | 7.4 | 6.1 - 7.9 g/dL | [facility] [...] [facility] | [address] | [place], [place] | | | RUTHIE CARTER OF CARE | [address] | [address] | | | TESTS | | | | + + + + + CBC+DIFF,POC (08/11/2015 2:48 PM PST) + + + + [...] + + + | RBC POC | 2.82 (L) | 4.50 - 6.00 | [facility] [...] + + + | HCT POC | 22.1 (L) | 41.0 - 53.0 % | [facility] - | | | | | | [facility] | | | | | | RUTHIE CARTER | | | | | | OF CARE | | | | | | TESTS | | + + + + + + | MCV POC | 78.4 (L) | 80.0 - 96.0 fL | [...] + + + | MCHC POC | 36.2 | 33.0 - 35.5 | [facility] - [...] + + + | PLT POC | 12 (L) | 150 - 400 | [facility] - | | | | | 10*3/uL | [facility] | | | | | | [facility] | | | | | | OF CARE | | | | | | TESTS | | + + + + + + | MPV POC | 9.3 (L) | 9.7 - 12.3 fL | [facility] | | | | | | [facility] | | | | | | [facility] | | | | | | OF CARE | | | | | | TESTS | | + + + + + + | NEUTROPHIL% | 1.5 (L) | 50.0 - 70.0 % | [facility] - | | | POC | | | [facility] | | | | | | [facility] POINT | | | | | | OF CARE | | | | | | TESTS | | + + + + + + | LYMPH% POC | 37.3 | 18 - 42 % | [facility] - | | | | | | [facility] | | | | | | [facility], POINT | | | | | | OF CARE | | | | | | TESTS | | + + + + + + | MONO %, POC | 56.7 (H) | 3.5 - 9.0 [...] + + | BASO %, POC | 4.5 (H) | 0.0 - 2.0 % | [...] [facility] | [address] | [place], [place] | | | RUTHIE CARTER [facility] | [address] | [address] | | | TESTS | | | | + + + + + LDH TOTAL, PLASMA (08/11/2015 2:33 PM PST) + +---------+ + + + | Component | Value | Ref Range | Performed | Pathologist | | | | | At | Signature | + +---------+ + + + | LD TOTAL, | 139 | <=250 U/L | [facility] | | [...] [facility] | [address] | [place] [address] | | | KOLE, INDRA | [address] | | | + + + + + documented in this encounter Visit Diagnoses + + | Diagnosis | + + | Acute myeloid leukemia (AML), M4 (HCC) | + + documented in this encounter"
--- OUTSIDE RECORDS SUMMARY | ~2019-05-17 | XMS | Encounter Summary ---
Demographics + + + | Address | [address] | | | [place] [address] | + + + | Home Phone [...] Team Providers + +------+ + | Care Pathologist Assistant Name | Role | Phone | + +------+ + | Zayda Hinton | PCP | | + +------+ + Encounter Details +--------+ + + + + | Date | Type | Department | Care Team | Description | +--------+ + + + + | 09/20/ | Pharmacy | Specialty Pharmacy | | | | 2015 | Visit | Services [address] | | | | | | [address] | | | | | | [place], [place] | | | | | | [address] | | | | | | [phone] | | | +--------+ + + + [...] 2019 | Visit | Malignancy | [address] [facility] | | | | | | [address] | | | | | | [place], [place] | | | | | | [address] | | | | | | [phone] | | | | | | | | +--------+---------+ + + + documented as of this encounter Visit Diagnoses Not on filedocumented in this encounter"
--- OUTSIDE RECORDS SUMMARY | ~2019-05-17 | XMS | Encounter Summary ---
Demographics + + + | Address | [address] | | | [place] [address] | + + + | Home Phone [...] Team Providers + +------+ + | Care Scarfer Operator Name | Role | Phone | [...] | +--------+ + + + + | 05/26/ | Hospital | [place] [address] | Yari Garcia MD | | | 2015 - | Encounter | [address] | [address] | | | | | Mailcode: [id number] | [address] | | | 07/08/ | | Josie Gunteron | [facility], [place] | | | 2015 | | [place], [place] | [address] | | | | | [address] | [phone] | | | | | [phone] | | | | | | | Lamin Funes MD,PhD | | | | | | [address] | | | | | | [address] | | | | | | [place], [place] | | | | | | [address] | | | | | | [phone] | | | | | | | | | | | | Yung Zhao MD | | | | | | [address] | | | | | | [address] | | | | | | [place], [place] | | | | | | [address] | | | | | | [phone] | | | | | | | | | | | | Lashonda Chapa MD | | | | | | [address] [facility] | | | | | | [address] [place], | | | | | | [place] [address] | | | | | | [phone] | | | | | | | | | | | | Thaddeus Rios, | | | | | | ,PhD [address] | | | | | | [address] | | | | | | [place], [place] | | | | | | [address] | | | | | | [phone] | | | | | | | | | | | | Sekou Blanchard MD | | | | | | [address] | | | | | | [address] [place], | | | | | | [place] [address] | | | | | | [phone] | | | | | | | | +--------+ + + + + Social History + +-------+ +--------+ + | Tobacco Use | Types | Packs/Day | Years | Date | | | | | Used | | + +-------+ +--------+ + | Former Smoker | | 0.5 | 5 | Quit: 05/20/2015 | + +-------+ +--------+ + + + | Tobacco Cessation: Counseling Given: No | + + + + +---------+ + [...] + + + | Blood Pressure | 139/78 | 07/08/2015 3:27 PM | | | | | PST | | + + + + + | Pulse | 92 | 07/08/2015 3:27 PM | | | | | PST | | + + + + + | Temperature | 36.8 C (98.2 F) | 07/08/2015 3:27 PM | | | | | PST | | + + + + + | Respiratory Rate | 16 | 07/08/2015 3:27 PM | | | | | PST | | + + + + + | Oxygen Saturation | 100% | 07/08/2015 3:27 PM | | | | | PST | | + + + + + | Inhaled Oxygen | - | - | | | Concentration | | | | + + + + + | Weight | 82.8 kg (182 lb 9.6 | 07/08/2015 4:44 AM | | | | oz) | PST | | + + + + + | Height | 190 cm (6' 2.8") | 05/27/2015 2:00 PM | | | | | PST | | + + + + + | Body Mass Index | 22.94 | 05/27/2015 2:00 PM | | | | | PST | | + + + + + documented in this encounter Discharge Summaries Sekou Blanchard MD - 07/08/2015 9:38 AM PSTFormatting of this note might be different from t frederic original. Malignant Hematology Attending Inpatient Discharge Summary Date: 07/08/2015 Hospital day 43 Attending: Sekou Blanchard MD [facility] physician: Dr. Yari Garcia. PCP: Pending Pcp ADDITION Date of Admission: 05/26/2015 Date of discharge :07/08/2015 Hematologic Malignancy: AML Reason for admission: Work-up and Induction Chemotherapy Diagnosis: Principal diagnosis acute blastic leukemia Additional diagnosises: Parotiditis Periodontal infection Neutropenia due to chemotherapy drugs Thrombocytopenia due to chemotherapy drugs Admission for antineoplastic chemotherapy Anemia due to chemotherapy drugs and leukemia Anxiety Electrolyte abnormalities Rash and nonspecific skin eruptions Transient renal insufficiency Reason For Admission: Newly diagnosed acute mental blastic leukemia admitted for induction chemotherapy Hospital Course: Patient admitted for AML and induction chemotherapy. He tolerated his carson atment well. His disease required 2 courses of induction. He had persistent residual disea se and prolonged neutropenia resulting in a extended hospitalization. See full hospital cour se details below. Case Management Discharge Instructions to patient: Appointment for labs at [facility] 2x/week starting 07/10/2015 Appointment to see Malinda Garcia 07/15/2015 Weekly PICC line dressing change and care weekly at [facility] SUMMARY OF PATIENT'S HOSPITALIZATION History of present illness: (From H&P) Mr. Kelly is 24 yo M with pmhx of pericarditis and new diagnosis of acute leukemia ad mitted for induction and management. Had been in usual state of [facility] until 03/13/15 (the night of his wedding) at which ti me he noted bilateral ankle pain and swelling. This persisted and worsened intermittently, n otably when hunting on 03/19/15. Then after work, couldn't walk well 2/2 pain and inevitably couldn't bear weight on his feet. Presented to the ED and was diagnosed with cellulitis of t he RLE, given antibiotics. During evaluation patient also noted to have pancytopenia with douglass bsequent white blood cell differential identifying a predominance of early appearing monocyt es. Then 04/18 began to have pleuritic anterior chest pains, low-grade fevers occasionally up t o 101. Also had onset of swelling and erythema over his left ankle, seen in the [facility] emergency room on April 19, CT angiogram negative for blood clot. CBC demonstrated whi te count 15,300 with 59% monocytes, 3% immature monocytes, hemoglobin 11.8, platelets 146,00 0. He was apparently treated with antibiotics, also colchicine and anti-inflammatory agents - for possible dx of pericarditis - with complete resolution of his symptoms. After he finished the antibiotics and other medicines, the symptoms came back, repeat the t o the emergency room on April 26. Repeat CT angiogram was again negative for pulmonary emb olus or other abnormality. CBC showed white count 14,300 with 48% monocytes, 4% immature mon ocytes, hemoglobin 12.8, platelets 180,000. He was again treated with the anti-inflammatory reason colchicine, no antibiotics, again with complete resolution of symptoms. Was referred to Oncology and at ange time had pleuritic anterior chest pain, low-grade fever s. CBC demonstrated white count 17,600 with 66 percent monocytes, hemoglobin 11.8, platelets 115,000, did have 3.5% basophils. Review of his peripheral smear by pathology revealed many immature monocytes but no overt blasts. 05/19/15 had bone marrow bx confirming AML (see below) as well as flow cytometry. Since the n he has been doing realtively well. Still some anterior chest pain if he lies on his stomac h or back, but ok if sitting upright. No fevers, chills, bleeding, hematochezia. No gingival bleeding. Hospitalzation History by Problem List: 1) AML presented on 03/13/15 with ankle pain and swelling. Seen in emergency room and d iagnosed with a cellulitis. A CBC done at that time noted pancytopenia with some immature m onocytes. Developed some pleuritic chest pains in 04/19/15. CTA did not show any clots. C BC showed a white count of 13.3 with 59% monocytes, 3% immature monocytes. His hemoglobin w as 11.8 and a platelet count of 146. He was thought to possibly have a pericarditis. Treat ed with colchicine and anti-inflammatory agents with resolution of his symptoms. Recurrent symptoms on 04/26 prompted a repeat CTA that was negative. His monocytosis persisted. Had a bone marrow biopsy on 05/19/15 that showed AML. He was admitted to [facility] on 05/26/15. Rev iew of his outside marrow adenoid tissue showed a 90% cellular marrow with flow cytometry re porting 23-6% immature monocytic cells. He was diagnosed with acute myelomonocytic leukemia . Flow cytometry of his peripheral blood showed his blast to express dim CD13, CD33, CD34, CD56, CD117 and CD123. His cytogenetics on his peripheral blood showed a normal karyotype. FISH with the AML and MDS probe panel were normal. Mutation analysis from his peripheral bl ood showed NRAS (p.G12C) mutation. He was started on induction with 3+7 on 05/27/15. His da y 14 marrow on 06/09/15 showed a 50-60% cellular marrow with approximately 50% blasts. He wa s started on a re-induction regimen with HAM on 06/11/15. Awaiting neutrophil recovery. ANC 0 .00 today. BmBx done07/08/2015 with preliminary report showing residual/recurrent leukemia. Completed induction with 3+7 (05/27/15) day +43 - Idarubicin 12 mg/m2 daily x 3 days -Cytarabine 100 mg/m2 CI IV daily x 7 days. Re-induction chemotherapy regimen: HAM started 06/11/15, day +28 -Cytarabine 3000 mg/m2 over 3 hours q 12 hr x 6 doses total, day 1-3 -Pred Forte Eye drops (1%) 2 drops to each eye q 6 hours from day 1 through day 6. -Mitoxantrone 10mg/m2/day over 30 minutes IV on day 4-6 Transfuse packed red blood cells for hemoglobin less than 7 Transfuse platelets for platelet count less than 10 or clinically significant bleeding 2) Parotiditis Developed some bilateral parotid swelling first noted on 06/07/15. Wa s treated initially with Zosyn and vancomycin for possible infection. Subsequently felt mor e likely consistent with a chemotherapy induced peritonitis. A CT scan of his face 06/07/15 showed enlargement and heterogeneous enhancement of the left parotid gland. Within the sourav cent soft tissue there was subcutaneous fat stranding and skin thickening. No recent parotid tenderness or swelling. - continue to clinically monitor 3) ID no fevers. Treated for a possible bacterial peritonitis. Had some teeth pain and restarted peridex Completed antibiotics Zosyn (06/07 06/13, 06/17 06/22) Vancomycin 06/09 06/12, 06/17 06/18) Continue prophylactic antibiotics Acyclovir 800 mg daily Levofloxacin 500 mg daily Posaconazole 300 mg daily 4) Peridontal infection - Has peridontal infection on clinical symptoms on admission where he had privious root canals. Lost his filling and had some bleeding. Improving - Continue antibiotics as above - Continue clinical monitoring - X-ray if symptoms progress 5) Supportive care: - electrolyte replacement - anti-nausea medication - analgesics (tylenol) - prophylaxis antibiotics Patient s primary diagnosis: AML Other diagnosis/comorbity: history of possible pericarditis Interval History: Overall doing well. No new complaints. He had his pulmonary biopsy done today. The pulmonary report of the bone marrow biopsy shows residual AML. We discussed the indications of his residual disease. No treatment would be given at this time with his severe neutropenia. He otherwise is feeling very well and has no other major comorbidities. We discussed him being able to go home and allow for further recovery there. He will need frequent lab tests and possible blood and platelet transfusions. He understa nds the risk of leaving the hospital with severe neutropenia is infectious. He understands warning signs and indication for returning to the clinic or emergency room should he develop any infections. Scheduled Medications Medication Dose Route Frequency Last Rate acyclovir (ZOVIRAX) tablet 800 mg 800 mg oral DAILY chlorhexidine (PERIDEX) mouthwash 15 mL 15 mL oral TID levofloxacin (LEVAQUIN) tablet 500 mg 500 mg oral DAILY posaconazole DR (NOXAFIL) tablet 300 mg 300 mg oral DAILY Please see MAR for PRN medications Physical exam on discharge: Vitals: Ht 1.9 m (6' 2.8"), Wt 82.827 kg (182 lb 9.6 oz), BP 110/61, Pulse 72, Temperature 36.9 C (98.4 F), RR 16, SpO2 100%, BMI 22.94 kg/(m^2). HEENT: PERRL, anicteric, Oropharynx without ulcerations or exudates. No gingival bleeding Chest: Clear to auscultation without rales or wheezes Heart: Regular without murmur Abdomen: Soft, nontender, normal bowel sounds, no guarding, nondistended Ext: No lower extremity edema Skin: No bruises or rashes Lab/x-ray findings. Recent Labs 07/05/151 07/07/15 0030 07/07/15 2340 NA 140 140 140 K 4.0 4.1 4.4 CL 107 109* 109* BICARB 26 25 26 BUN 14 15 14 CR 0.93 0.85 0.92 GLU 116* 107* 104* CA 8.7 8.9 8.8 AST 25 29 29 ALT 39 45 48 AP 79 74 76 TBILI 0.4 0.4 0.4 TP 6.5 6.4 6.6 ALB 3.5 3.6 3.7 ANIONGAP 7 6 5 ANIONALBCOR 8 7 5 Recent Labs 07/05/15 2311 07/07/15 0030 07/07/15 2340 WBC 0.56* 0.53* 0.60* RBC 2.69* 2.70* 2.77* HB 8.0* 8.0* 8.1* HCT 22.0* 22.2* 22.5* MCV 81.8 82.2 81.2 MCHC 36.4 36.0 36.0 RDW 34.9* 34.5* 33.9* PLT 15* 11* 8* NEUTROPHILCO 0.01* 0.02* 0.00* LYMPHSABS 0.33* 0.34* 0.29* MONOCYTECO 0.21 0.13 0.27 EOSCO 0.00 0.00 0.00 BASOPHILCO 0.00 0.00 0.00 Follow-up: 07/10/2015 - Appointment for labs at [facility] then 2x/week 07/15/2015 - Appointment to see Malinda Garcia 07/15/2015 PICC line care weekly Discharge medication Name Sig ACYCLOVIR 800 MG TABLET Take 1 tablet by mouth once daily. ALPRAZOLAM 0.5 MG TABLET Take 2 tablets by mouth three times daily as needed for anxiety. CHLORHEXIDINE GLUCONATE 0.12 % MOUTHWASH Take 15 mL by mouth three times daily. Swish undil uted oral rinse around in mouth for 30 seconds, then spit. Do not swallow. LEVOFLOXACIN 500 MG TABLET Take 1 tablet by mouth once daily. LORAZEPAM 1 MG TABLET Take 1/2 to 1 tablet by mouth every 6 hours as needed for anxiety, na usea, or sleep. POSACONAZOLE 100 MG TABLET,DELAYED RELEASE Take 3 tablets by mouth once daily. PROCHLORPERAZINE MALEATE 5 MG TABLET Take 1 tablet by mouth every six hours as needed for n ausea/vomiting. Max dose: 40 mg/day Diet Regular -No raw seed and vegetable sprouts -No raw or rare meat, fish, and poultry -No food from salad bars and buffets -No food with raw eggs (salad dressings, egg nog) -No unpasteurized dairy products -No unroasted nuts and nuts in the shell -No unpasteurized juices and ciders -No probiotics and probiotic-containing foods like: Kezia s yogurt, Dannon Activia, k ombucha, and kefir, etc. Activity Restrictions: Avoid sick contacts and large crowds. Wear a mask when you go in and out of t he [facility] clinic. Careful with physical activity when your plat elets are low to prevent bleeding. Practice good hand washing hygiene. Destination: Destination: Home Condition on Discharge Stable Other Discharge Orders and Instructions Call the BMT clinic ([phone]) or BMT person on-call ([phone]) for: Any temp > 100.4 Nausea/vomiting unresponsive to compazine or ativan Significant diarrhea despite Imodium Inability to drink at least 2 liters of fluid daily Bleeding I spent greater than 30 minutes in discharge planning and coordination of this patient SEKOU BLANCHARD MD [facility] documented in this encou nter Discharge Instructions Instructions Laura Guzmán RN - 07/08/2015Patient Education Materials: N/A Additional Instructions: Check your oral temperature three times a day and whenever you feel like you may have chill s or a fever. Drink at least 2 [...] hen outdoors. Clean surfaces with antibacterial wipes. No plants or arizmendi until approved by provider. Have your caregiver bathe and clean up [...] if you have any questions! [facility] ([facility]) during clinic hours (M-F 8:30-4:30): [phone] [facility] ([facility]) at all other times: [phone] 14KPV: [phone] How was your stay with us? Is there anything we could have done differently to improve your time here on 14K? Discharge Nurse: Laura Guzmán RN Date: 07/08/2015 Discharge Time: 3:10 PM documented in this encounter Progress Notes Amira Lundy, PLANE CAPTAIN - 07/07/2015 4:13 PM PSTFormatting of this note might be diffe rent from the original. Daily NPP Note - Chemotherapy Admit [facility] Attending: Sekou Blanchard MD [facility] physician: Dr. Yari Garcia. PCP: Pending Pcp ADDITION Date of Admission: 05/26/2015 Hematologic Malignancy: AML Reason for admission: Work-up and Induction Chemotherapy 24 Hour Events/Current Daily Plan: -AML (intermediate risk): Adm for w/u and induction with 3+7. Day 14 bmbx with residual dis ease (50-60% cellularity with 50% blasts). Now s/p HAM reinduction, waiting for count recove ry. Plan for BMBx tomorrow, 07/08. -Pancytopenia d/t disease and chemo: ANC 10 with 2.9% atypicals today, will follow trend. S tandard transfusion parameters, no transfusions required today. -Lytes: Standard electrolyte repletion parameters. No replacements required today. -Situational Anxiety, not relieved with Ativan. Xanax 0.5 mg TID PRN with improvement. Decl ivania SSRI at this time. -R Upper Molar Pain d/t exposed nerve after cap fell off (first noted 07/02): Continue Chlo rhexidine rinses q 6 hrs and recommend dental work after counts recover prior to next chemo cycle. -Dispo: Possible early discharge pathway. Needs ANC of 100 per protocol. If recovers, tenta tively plan for recovery BMBx on 07/13/15 and f/u with Dr. Garcia on 07/15/15 (schedulers working on overbook). Subjective: Feeling depressed and anxious lately, but still managing to keep it under contr ol. Objective: Last Vitals: BP 125/66 | Pulse 76 | Temp 36.8 C (98.2 F) | RR 16 | Ht 1.9 m (6' 2.8") | Wt 83.054 kg (183 lb 1.6 oz) | SpO2 100% | BMI 23.01 kg/(m^2) 24 Hour Vital Min/Max: Systolic (24hrs), Av mmHg, Min:109 mmHg, Max:125 mmHg Diastolic (24hrs), Av mmHg, Min:59 mmHg, Max:87 mmHg Pulse Min: 64 Max: 83 Temp Min: 36.6 C (97.9 F) Max: 36.9 C (98.4 F) Resp Min: 16 Max: 16 SpO2 Min: 98 % Max: 100 % Intake/Output Summary (Last 24 hours) at 07/07/15 1613 Last data filed at 07/07/15 1600 Gross per 24 hour Intake 4690 ml Output 2830 ml Net 1860 ml Physical Exam: General: This is a male in no acute distress. Sitting upright in bed HEENT: PERRL. Sclerae anicteric. Mucosa pink and moist. R upper molar cracked Skin: No rashes, scattered petechiae on BLE. Chest: Lungs clear to auscultation bilat. CV: RRR, no murmurs. Abdomen: S/NT/ND with NABS. No HSM appreciated. Extremities: Pulses strong and equal bilaterally. No c/c/e. NeuroPsych: Alert and oriented x 3. Grossly nonfocal exam. CVC: PICC line dressing dry and intact Laboratory Results: Recent Labs 07/05/15 0010 07/05/151 07/07/15 0030 NA 140 140 140 K 4.5 4.0 4.1 CL 107 107 109* BICARB 26 26 25 BUN 12 14 15 CR 1.13 0.93 0.85 GLU 100* 116* 107* CA 8.9 8.7 8.9 AST 25 25 29 ALT 36 39 45 AP 80 79 74 TBILI 0.5 0.4 0.4 TP 6.5 6.5 6.4 ALB 3.5 3.5 3.6 Recent Labs 07/05/15 0010 07/05/15 2311 07/07/15 0030 WBC 0.53* 0.56* 0.53* RBC 2.64* 2.69* 2.70* HB 7.7* 8.0* 8.0* HCT 21.6* 22.0* 22.2* PLT 17* 15* 11* NEUTROPERC 3.1* 1.5* 2.9* LYMPHPERC 42.6* 58.3* 64.1* MONOPERC 53.5* 37.9* 25.2* BASOPERC 0.0 0.0 0.0 EOSPERC 0.0* 0.0* 0.0* Meds: Reviewed on rounds, see current MAR for medication list SUMMARY OF PATIENT'S HOSPITALIZATION History of Present Illness: Khurram Kelly is 24 yo M with pmhx of pericarditis and new diagnosis of acute leukemia admitted for induction and management. Had been in usual state of [facility] 03/13/15 (the night of his wedding) at which time he noted bilateral ankle pain and swellin g. This persisted and worsened intermittently, notably when hunting on 03/19/15. Then after w ork, couldn't walk well 2/2 pain and inevitably couldn't bear weight on his feet. Presented to the ED and was diagnosed with cellulitis of the RLE, given antibiotics. During evaluation patient also noted to have pancytopenia with subsequent white blood cell differential ident ifying a predominance of early appearing monocytes. On 04/18/15 began to have pleuritic anterior chest pains, low-grade fevers occasionally up to 101. Also had onset of swelling and erythema over his left ankle, seen in the [facility] emergency room on 04/19/15. CT angiogram negative for blood clot. CBC demonstrated whi te count 15,300 with 59% monocytes, 3% immature monocytes, hemoglobin 11.8, platelets 146,00 0. He was apparently treated with antibiotics, also colchicine and anti-inflammatory agents - for possible dx of pericarditis - with complete resolution of his symptoms. After he finished the antibiotics and other medicines, the symptoms came back, repeat trip to the emergency room on 04/26/15. Repeat CT angiogram was again negative for pulmonary embo carmen or other abnormality. CBC showed white count 14,300 with 48% monocytes, 4% immature mono cytes, hemoglobin 12.8, platelets 180,000. He was again treated with the anti-inflammatory r maye colchicine, no antibiotics, again with complete resolution of symptoms. Was referred to Oncology and at that time had pleuritic anterior chest pain, low-grade feve rs. CBC demonstrated white count 17,600 with 66% monocytes, hemoglobin 11.8, platelets 115,0 00, did have 3.5% basophils. Review of his peripheral smear by pathology revealed many immat ure monocytes but no overt blasts. 05/19/15 had bone marrow bx confirming AML (see below) as well as flow cytometry. Hospitalization History: Hematology: #AML Pertinent Diagnostics: -BM Bx done at OSH 05/19/15, slides reviewed by [facility] and c/w Acute Myelomonocytic Leukemia in a 90% cellular marrow. -Results: 86% of blast equivalents, comprised of myeloblasts, monoblasts and promonocytes. Concurrent flow cytometry detected 23% myeloid blasts and 60% immature monocytic cells suppo rting this diagnosis. -Cytogenetics: Normal male karyotype -[facility] from OSH: triple negative for CEBPA , NPM1, FLT3 -Peripheral blood flow 05/27/15: Acute Myelomonocytic Leukemia (47% blasts and 30% monocyte s) -Cytogenetics: normal male karyotype -[facility]: NRAS mutation (40%) -Day 14 BM Bx 06/09/15: Residual AML with 50-60% marrow cellularity and approximately 50% bl asts -Plan to send telomere length and chromosomal breakage when he recovers Treatment: -Chemotherapy regimen: standard induction with 3+7 started 05/27/15 -Idarubicin 12 mg/m2 daily x 3 days -Cytarabine 100 mg/m2 CI IV daily x 7 days. -Re-induction chemotherapy regimen: HAM started 06/11/15 -Cytarabine 3000 mg/m2 over 3 hours q 12 hr x 6 doses total, day 1-3 -Pred Forte Eye drops (1%) 2 drops to each eye q 6 hours from day 1 through day 6. First d ose of Pred eye drops to be 1/2 hr before first Cytarabine dose on day 1. -Mitoxantrone 10mg/m2/day over 30 minutes IV on day 4-6 -Chemo Day: 26 (HAM) / 41 (3+7) Patient is a candidate for transplant based on Dx and prognostic feature with persistent disease day 14. Request insurance approval for typing. HLA typing sent 05/27/15. He has tw o brothers who are NOT a match, no fully-matched URD. #Pancytopenia d/t treatment/disease -Antimicrobials as below -See supportive care #Mild allergic transfusion reaction to PRBCs (noted 07/03) -See supportive care #Supportive Care: Growth factor: Not indicated with this chemotherapy regimen. Labs: Continue to check CBC with diff daily Transfusion parameters: -Transfuse PRBCs for HCT <21% (Pre-med with Benadryl PRN d/t mild allergic reaction on ) -Transfuse PPH for platelet count <10,000 or sooner PRN s/s bleeding. HEENT: #R Upper Molar Pain d/t exposed nerve after cap fell off (first noted 07/02) - Stable -Chlorhexidine rinses q 6 hrs -Antimicrobials as below -Recommend dental work after counts recover prior to next chemo cycle. #Bilateral Parotitis, likely d/t Cytarabine per ENT - Resolved. L Parotitis (first noted ) and improved s/p Zosyn (06/07-06/13) + Vanco (06/09-06/12); then occurred bilatreally (no edward 06/16) s/p Zosyn (06/17-06/22) + Vancomycin (06/17-06/18) Cardiovascular: Prechemotherapy Echo results on 05/18: EF 60-65 %. Left ventricular diastol ic function is normal. #?Hx of Pericarditis s/p full course of Colchicine - Resolved. Presented to OSH on several visits to ED with CP. Echo done at OSH x 2 both normal, no noted pericarditis or effusions. Pulmonary: #Smoker - Stopped on admission. -Smoking cessation counseling offered -Nicotine gum PRN but has not used. GI: #CINV - Resolved. No effect with Scop patch -Antiemetics PRN /Renal: #Elevated sCr, unclear etiology (first noted 06/24) - Improving/Stable. (07/02) urine scree n positive, culture negative. Negative eosinophils. -1L NS bolus PRN; last given 07/02 Neurology: #Situational Depression with Anxiety - Controlled. Not relieved with Ativan -Xanax 0.5 mg TID PRN, switched from Ativan on 07/01 -Declines SSRI at this time #Insomnia - Controlled -Zyprexa 10mg qhs PRN, switched from scheduled qhs on 07/02 Dermatology: #Contact Dermatitis d/t CHG wipes (noted 06/27 on back of hands, arms, legs) - Improving -Eucerin daily, Benadryl PRN #Superficial Dermatitis, Logan Calves (noted ~06/07 and Bx confirmed 06/09) - Resolved Reproductive: #Sperm Preservation - Completed 05/27/15 prior to chemotherapy Infectious Disease: No active issues #Prophylaxis: Bacterial: Levaquin Fungal: Posaconazole, trough level adequate 06/28 @ 0.9 Viral: Acyclovir PCP: Not indicated with this chemo regimen Fluid/Nutrition/Lytes: #Nutrition: Regular diet, No Kezia's yogurt or Kefir #Fluid: 1L NS PRN for PO intake <2L/day by 2200 #Lytes: Continue to check chemistries daily. Replace per supportive care protocol. Disposition: Will remain hospitalized until count recovery, may be eligible for early disc harge. Tentatively plan for recovery BMBx on 07/13/15 and f/u with Dr. Garcia on 07/15/15. ORLY Bianchi [place] [id number] [facility] Mailcode: [id number] [place] [address] Sekou Castro MD - 07/07/2015 2:41 PM PST Malignant Hematology Attending Inpatient Progress Note: Date: 07/07/2015 Hospital day 42 Problem List: 1) AML presented on 03/13/15 with ankle pain and swelling. Seen in emergency room and d iagnosed with a cellulitis. A CBC done at that time noted pancytopenia with some immature m onocytes. Developed some pleuritic chest pains in 04/19/15. CTA did not show any clots. C BC showed a white count of 13.3 with 59% monocytes, 3% immature monocytes. His hemoglobin w as 11.8 and a platelet count of 146. He was thought to possibly have a pericarditis. Treat ed with colchicine and anti-inflammatory agents with resolution of his symptoms. Recurrent symptoms on 04/26 prompted a repeat CTA that was negative. His monocytosis persisted. Had a bone marrow biopsy on 05/19/15 that showed AML. He was admitted to [facility] on 05/26/15. Rev iew of his outside marrow adenoid tissue showed a 90% cellular marrow with flow cytometry re porting 23-6% immature monocytic cells. He was diagnosed with acute myelomonocytic leukemia . Flow cytometry of his peripheral blood showed his blast to express dim CD13, CD33, CD34, CD56, CD117 and CD123. His cytogenetics on his peripheral blood showed a normal karyotype. FISH with the AML and MDS probe panel were normal. Mutation analysis from his peripheral bl ood showed NRAS (p.G12C) mutation. He was started on induction with 3+7 on 05/27/15. His da y 14 marrow on 06/09/15 showed a 50-60% cellular marrow with approximately 50% blasts. He wa s started on a re-induction regimen with HAM on 06/11/15. Awaiting neutrophil recovery. ANC 0 .02 today. Will plan to do BmBx tomorrow before holiday to assess cause of slow myeloid myron very. Completed induction with 3+7 (05/27/15) day +42 - Idarubicin 12 mg/m2 daily x 3 days -Cytarabine 100 mg/m2 CI IV daily x 7 days. Re-induction chemotherapy regimen: HAM started 06/11/15, day +27 -Cytarabine 3000 mg/m2 over 3 hours q 12 hr x 6 doses total, day 1-3 -Pred Forte Eye drops (1%) 2 drops to each eye q 6 hours from day 1 through day 6. -Mitoxantrone 10mg/m2/day over 30 minutes IV on day 4-6 Transfuse packed red blood cells for hemoglobin less than 7 Transfuse platelets for platelet count less than 10 or clinically significant bleeding BmBx tomorrow to assess marrow function/residual leukemia 2) Parotiditis Developed some bilateral parotid swelling first noted on 06/07/15. Neno sam treated initially with Zosyn and vancomycin for possible infection. Subsequently felt mor e likely consistent with a chemotherapy induced peritonitis. A CT scan of his face 06/07/15 showed enlargement and heterogeneous enhancement of the left parotid gland. Within the sourav cent soft tissue there was subcutaneous fat stranding and skin thickening. No recent parotid tenderness or swelling. - continue to clinically monitor 3) ID no fevers. Treated for a possible bacterial peritonitis. Had some teeth pain and restarted peridex Completed antibiotics Zosyn (06/07 06/13, 06/17 06/22) Vancomycin 06/09 06/12, 06/17 06/18) Continue prophylactic antibiotics Acyclovir 800 mg daily Levofloxacin 500 mg daily Posaconazole 300 mg daily 4) Peridontal infection - Has peridontal infection on clinical symptoms on admission where he had privious root canals. Lost his filling and had some bleeding. Improving - Continue antibiotics as above - Continue clinical monitoring - X-ray if symptoms progress 5) Supportive care: - electrolyte replacement - anti-nausea medication - analgesics (tylenol) - prophylaxis antibiotics Patient s primary diagnosis: AML Other diagnosis/comorbity: history of possible pericarditis Interval History: No new complaints. Continues to remains without fevers or other signs of infections despite severe neutropenia. Will obtain a BmBx tomorrow given slow recovery of n eutrophil counts.. Scheduled Medications Medication Dose Route Frequency Last Rate acyclovir (ZOVIRAX) tablet 800 mg 800 mg oral DAILY chlorhexidine (PERIDEX) mouthwash 15 mL 15 mL oral TID levofloxacin (LEVAQUIN) tablet 500 mg 500 mg oral DAILY posaconazole DR (NOXAFIL) tablet 300 mg 300 mg oral DAILY Please see MAR for PRN medications Physical exam is notable for: Vitals: Ht 1.9 m (6' 2.8"), Wt 83.054 kg (183 lb 1.6 oz), BP 124/87, Pulse 83, Temperature 36.8 C (98.2 F), RR 16, SpO2 100%, BMI 23.01 kg/(m^2). HEENT: PERRL, anicteric, OP without ulcerations or exudated. Chest: clear to ascultation Heart: regular without murmur Abdomen: non-distended, Normal bowel sounds. No guarding Ext: no edema Skin: No rashes. PICC site clean. Lab/x-ray findings. Recent Labs 07/05/15 0010 07/05/15 2311 07/07/15 0030 NA 140 140 140 K 4.5 4.0 4.1 CL 107 107 109* BICARB 26 26 25 BUN 12 14 15 CR 1.13 0.93 0.85 GLU 100* 116* 107* CA 8.9 8.7 8.9 AST 25 25 29 ALT 36 39 45 AP 80 79 74 TBILI 0.5 0.4 0.4 TP 6.5 6.5 6.4 ALB 3.5 3.5 3.6 ANIONGAP 7 7 6 ANIONALBCOR 8 8 7 Recent Labs 07/05/15 0010 07/05/15 2311 07/07/15 0030 WBC 0.53* 0.56* 0.53* RBC 2.64* 2.69* 2.70* HB 7.7* 8.0* 8.0* HCT 21.6* 22.0* 22.2* MCV 81.8 81.8 82.2 MCHC 35.6 36.4 36.0 RDW 35.0* 34.9* 34.5* PLT 17* 15* 11* NEUTROPHILCO 0.02* 0.01* 0.02* LYMPHSABS 0.23* 0.33* 0.34* MONOCYTECO 0.28 0.21 0.13 EOSCO 0.00 0.00 0.00 BASOPHILCO 0.00 0.00 0.00 I was present and rounded today with the NPP, Amira Lundy. I have independently exa mined and assessed the patient. I have personally interviewed Mr. Kelly, reviewed th e vitals, history/last 24 hour events and the labs/studies for today. I agree with all the N PP's findings of note. I agree with the NPP'sassessment and stated plan of care. See p ro note documented by the NPP for details of relevant issues and care plan for today. SEKOU BLANCHARD MD [facility] rAmira cee FNP - 07/06/2015 3:28 PM PST Daily NPP Note - Chemotherapy Admit [facility] Attending: Sekou Blanchard MD [facility] physician: Dr. Yari Garcia. PCP: Pending Pcp ADDITION Date of Admission: 05/26/2015 Hematologic Malignancy: AML Reason for admission: Work-up and Induction Chemotherapy 24 Hour Events/Current Daily Plan: -AML (intermediate risk): Adm for w/u and induction with 3+7. Day 14 bmbx with residual dis ease (50-60% cellularity with 50% blasts). Now s/p HAM reinduction, waiting for count recove ry. -Pancytopenia d/t disease and chemo: ANC 10 with 2.3% atypicals today, will follow trend. S tandard transfusion parameters, no transfusions required today. -Lytes: Standard electrolyte repletion parameters. No replacements required today. -Situational Anxiety, not relieved with Ativan. Xanax 0.5 mg TID PRN with improvement. Decl ivania SSRI at this time. -R Upper Molar Pain d/t exposed nerve after cap fell off (first noted 07/02): Continue Chlo rhexidine rinses q 6 hrs and recommend dental work after counts recover prior to next chemo cycle. -Dispo: Possible early discharge pathway. Needs ANC of 100 per protocol. If recovers, tenta tively plan for recovery BMBx on 07/13/15 and f/u with Dr. Garcia on 07/15/15 (schedulers working on overbook). Subjective: Continues to have some mild tooth pain at areas of two known previous root uriel ls where he still needed to have crowns put on, but the area is no longer bleeding. Has also been feeling depressed the last few weeks, but doesn't want an antidepressant for now. Objective: Last Vitals: BP 138/82 | Pulse 70 | Temp 36.4 C (97.5 F) | RR 16 | Ht 1.9 m (6' 2.8") | Wt 82.101 kg (181 lb) | SpO2 100% | BMI 22.74 kg/(m^2) 24 Hour Vital Min/Max: Systolic (24hrs), Av mmHg, Min:116 mmHg, Max:138 mmHg Diastolic (24hrs), Av mmHg, Min:66 mmHg, Max:84 mmHg Pulse Min: 66 Max: 74 Temp Min: 36.4 C (97.5 F) Max: 36.8 C (98.2 F) Resp Min: 16 Max: 16 SpO2 Min: 99 % Max: 100 % Intake/Output Summary (Last 24 hours) at 07/06/15 1528 Last data filed at 07/06/15 1300 Gross per 24 hour Intake 2672 ml Output 1400 ml Net 1272 ml Physical Exam: General: This is a male in no acute distress. Sitting up in bed HEENT: PERRL. Sclerae anicteric. Mucosa pink and moist. R upper molar cracked Skin: No rashes, scattered petechiae on BLE. Chest: Lungs clear to auscultation bilat. CV: RRR, no murmurs. Abdomen: S/NT/ND with NABS. No HSM appreciated. Extremities: Pulses strong and equal bilaterally. No c/c/e. NeuroPsych: Alert and oriented x 3. Grossly nonfocal exam. CVC: PICC line dressing dry and intact Laboratory Results: Recent Labs 07/04/15 0031 07/05/15 0010 07/05/15 2311 NA 139 140 140 K 4.3 4.5 4.0 CL 109* 107 107 BICARB 25 26 26 BUN 13 12 14 CR 1.17 1.13 0.93 GLU 103* 100* 116* CA 8.6 8.9 8.7 AST 29 25 25 ALT 34 36 39 AP 72 80 79 TBILI 0.5 0.5 0.4 TP 6.4 6.5 6.5 ALB 3.6 3.5 3.5 Recent Labs 07/04/15 0031 07/05/15 0010 07/05/15 2311 WBC 0.45* 0.53* 0.56* RBC 2.42* 2.64* 2.69* HB 7.1* 7.7* 8.0* HCT 20.0* 21.6* 22.0* PLT 22* 17* 15* NEUTROPERC 2.2* 3.1* 1.5* LYMPHPERC 62.2* 42.6* 58.3* MONOPERC 35.6* 53.5* 37.9* BASOPERC 0.0 0.0 0.0 EOSPERC 0.0* 0.0* 0.0* Meds: Reviewed on rounds, see current MAR for medication list SUMMARY OF PATIENT'S HOSPITALIZATION History of Present Illness: Khurram Kelly is 24 yo M with pmhx of pericarditis and new diagnosis of acute leukemia admitted for induction and management. Had been in usual state of [facility] 03/13/15 (the night of his wedding) at which time he noted bilateral ankle pain and swellin g. This persisted and worsened intermittently, notably when hunting on 03/19/15. Then after w ork, couldn't walk well 2/2 pain and inevitably couldn't bear weight on his feet. Presented to the ED and was diagnosed with cellulitis of the RLE, given antibiotics. During evaluation patient also noted to have pancytopenia with subsequent white blood cell differential ident ifying a predominance of early appearing monocytes. On 04/18/15 began to have pleuritic anterior chest pains, low-grade fevers occasionally up to 101. Also had onset of swelling and erythema over his left ankle, seen in the [facility] emergency room on 04/19/15. CT angiogram negative for blood clot. CBC demonstrated whi te count 15,300 with 59% monocytes, 3% immature monocytes, hemoglobin 11.8, platelets 146,00 0. He was apparently treated with antibiotics, also colchicine and anti-inflammatory agents - for possible dx of pericarditis - with complete resolution of his symptoms. After he finished the antibiotics and other medicines, the symptoms came back, repeat trip to the emergency room on 04/26/15. Repeat CT angiogram was again negative for pulmonary embo carmen or other abnormality. CBC showed white count 14,300 with 48% monocytes, 4% immature mono cytes, hemoglobin 12.8, platelets 180,000. He was again treated with the anti-inflammatory r maye colchicine, no antibiotics, again with complete resolution of symptoms. Was referred to Oncology and at that time had pleuritic anterior chest pain, low-grade feve rs. CBC demonstrated white count 17,600 with 66% monocytes, hemoglobin 11.8, platelets 115,0 00, did have 3.5% basophils. Review of his peripheral smear by pathology revealed many immat ure monocytes but no overt blasts. 05/19/15 had bone marrow bx confirming AML (see below) as well as flow cytometry. 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 -Results: 86% of blast equivalents, comprised of myeloblasts, monoblasts and promonocytes. Concurrent flow cytometry detected 23% myeloid blasts and 60% immature monocytic cells suppo rting this diagnosis. -Cytogenetics: Normal male karyotype -GeneTrails from OSH: triple negative for CEBPA , NPM1, FLT3 -Peripheral blood flow 05/27/15: Acute Myelomonocytic Leukemia (47% blasts and 30% monocyte s) -Cytogenetics: normal male karyotype -GeneTrails: NRAS mutation (40%) -Day 14 BM Bx 06/09/15: Residual AML with 50-60% marrow cellularity and approximately 50% bl asts -Plan to send telomere length and chromosomal breakage when he recovers Treatment: -Chemotherapy regimen: standard induction with 3+7 started 05/27/15 -Idarubicin 12 mg/m2 daily x 3 days -Cytarabine 100 mg/m2 CI IV daily x 7 days. -Re-induction chemotherapy regimen: HAM started 06/11/15 -Cytarabine 3000 mg/m2 over 3 hours q 12 hr x 6 doses total, day 1-3 -Pred Forte Eye drops (1%) 2 drops to each eye q 6 hours from day 1 through day 6. First d ose of Pred eye drops to be 1/2 hr before first Cytarabine dose on day 1. -Mitoxantrone 10mg/m2/day over 30 minutes IV on day 4-6 -Chemo Day: 26 (HAM) / 41 (3+7) Patient is a candidate for transplant based on Dx and prognostic feature with persistent disease day 14. Request insurance approval for typing. HLA typing sent 05/27/15. He has tw o brothers for potential donors, currently getting typed by Dr. Garcia. #Pancytopenia d/t treatment/disease -Antimicrobials as below -See supportive care #Mild allergic transfusion reaction to PRBCs (noted 07/03) -See supportive care #Supportive Care: Growth factor: Not indicated with this chemotherapy regimen. Labs: Continue to check CBC with diff daily Transfusion parameters: -Transfuse PRBCs for HCT <21% (Pre-med with Benadryl PRN d/t mild allergic reaction on ) -Transfuse PPH for platelet count <10,000 or sooner PRN s/s bleeding. HEENT: #R Upper Molar Pain d/t exposed nerve after cap fell off (first noted 07/02) - Stable -Chlorhexidine rinses q 6 hrs -Antimicrobials as below -Recommend dental work after counts recover prior to next chemo cycle. #Bilateral Parotitis, likely d/t Cytarabine per ENT - Resolved. L Parotitis (first noted ) and improved s/p Zosyn (06/07-06/13) + Vanco (06/09-06/12); then occurred bilatreally (no edward 06/16) s/p Zosyn (06/17-06/22) + Vancomycin (06/17-06/18) Cardiovascular: Prechemotherapy Echo results on 05/18: EF 60-65 %. Left ventricular diastol ic function is normal. #?Hx of Pericarditis s/p full course of Colchicine - Resolved. Presented to OSH on several visits to ED with CP. Echo done at OSH x 2 both normal, no noted pericarditis or effusions. Pulmonary: #Smoker - Stopped on admission. -Smoking cessation counseling offered -Nicotine gum PRN but has not used. GI: #CINV - Resolved. No effect with Scop patch -Antiemetics PRN /Renal: #Elevated sCr, unclear etiology (first noted 06/24) - Improving/Stable. (07/02) urine scree n positive, culture negative. Negative eosinophils. -1L NS bolus PRN; last given 07/02 Neurology: #Situational Depression with Anxiety - Controlled. Not relieved with Ativan -Xanax 0.5 mg TID PRN, switched from Ativan on 07/01 -Declines SSRI at this time #Insomnia - Controlled -Zyprexa 10mg qhs PRN, switched from scheduled qhs on 07/02 Dermatology: #Contact Dermatitis d/t CHG wipes (noted 06/27 on back of hands, arms, legs) - Improving -Eucerin daily, Benadryl PRN #Superficial Dermatitis, Logan Calves (noted ~06/07 and Bx confirmed 06/09) - Resolved Reproductive: #Sperm Preservation - Completed 05/27/15 prior to chemotherapy Infectious Disease: No active issues #Prophylaxis: Bacterial: Levaquin Fungal: Posaconazole, trough level adequate 06/28 @ 0.9 Viral: Acyclovir PCP: Not indicated with this chemo regimen Fluid/Nutrition/Lytes: #Nutrition: Regular diet, No Kezia's yogurt or Kefir #Fluid: 1L NS PRN for PO intake <2L/day by 2200 #Lytes: Continue to check chemistries daily. Replace per supportive care protocol. Disposition: Will remain hospitalized until count recovery, may be eligible for early disc harge. Tentatively plan for recovery BMBx on 07/13/15 and f/u with Dr. Garcia on 07/15/15. ORLY Bianchi [facility] [id number] [facility] Mailcode: [id number] [place], [place] [id number] Sekou Castro MD - 07/06/2015 12:00 PM PST Malignant Hematology Attending Inpatient Progress Note: Date: 07/06/15 Hospital day 41 Problem List: 1) AML presented on 03/13/15 with ankle pain and swelling. Seen in emergency room and d iagnosed with a cellulitis. A CBC done at that time noted pancytopenia with some immature m onocytes. Developed some pleuritic chest pains in 04/19/15. CTA did not show any clots. C BC showed a white count of 13.3 with 59% monocytes, 3% immature monocytes. His hemoglobin w as 11.8 and a platelet count of 146. He was thought to possibly have a pericarditis. Treat ed with colchicine and anti-inflammatory agents with resolution of his symptoms. Recurrent symptoms on 04/26 prompted a repeat CTA that was negative. His monocytosis persisted. Had a bone marrow biopsy on 05/19/15 that showed AML. He was admitted to [facility] on 05/26/15. Rev iew of his outside marrow adenoid tissue showed a 90% cellular marrow with flow cytometry re porting 23-6% immature monocytic cells. He was diagnosed with acute myelomonocytic leukemia . Flow cytometry of his peripheral blood showed his blast to express dim CD13, CD33, CD34, CD56, CD117 and CD123. His cytogenetics on his peripheral blood showed a normal karyotype. FISH with the AML and MDS probe panel were normal. Mutation analysis from his peripheral bl ood showed NRAS (p.G12C) mutation. He was started on induction with 3+7 on 05/27/15. His da y 14 marrow on 06/09/15 showed a 50-60% cellular marrow with approximately 50% blasts. He wa s started on a re-induction regimen with HAM on 06/11/15. Awaiting neutrophil recovery. ANC 0 .01 today. Discussed obtaining a bone marrow biopsy if ANC does not start to rise in the nex t day or 2. Completed induction with 3+7 (05/27/15) day +41 - Idarubicin 12 mg/m2 daily x 3 days -Cytarabine 100 mg/m2 CI IV daily x 7 days. Re-induction chemotherapy regimen: HAM started 06/11/15, day +26 -Cytarabine 3000 mg/m2 over 3 hours q 12 hr x 6 doses total, day 1-3 -Pred Forte Eye drops (1%) 2 drops to each eye q 6 hours from day 1 through day 6. -Mitoxantrone 10mg/m2/day over 30 minutes IV on day 4-6 Transfuse packed red blood cells for hemoglobin less than 7 Transfuse platelets for platelet count less than 10 or clinically significant bleeding Consider early discharge when ANC is greater than 200 2) Parotiditis Developed some bilateral parotid swelling first noted on 06/07/15. Neno sam treated initially with Zosyn and vancomycin for possible infection. Subsequently felt mor e likely consistent with a chemotherapy induced peritonitis. A CT scan of his face 06/07/15 showed enlargement and heterogeneous enhancement of the left parotid gland. Within the sourav cent soft tissue there was subcutaneous fat stranding and skin thickening. No recent parotid tenderness or swelling. - continue to clinically monitor 3) ID no fevers. Treated for a possible bacterial peritonitis. Had some teeth pain and restarted peridex Completed antibiotics Zosyn (06/07 06/13, 06/17 06/22) Vancomycin 06/09 06/12, 06/17 06/18) Continue prophylactic antibiotics Acyclovir 800 mg daily Levofloxacin 500 mg daily Posaconazole 300 mg daily 4) Peridontal infection - Has peridontal infection on clinical symptoms on admission where he had privious root canals. Lost his filling and had some bleeding. Improving - Continue antibiotics as above - Continue clinical monitoring - X-ray if symptoms progress 5) Supportive care: - electrolyte replacement - anti-nausea medication - analgesics (tylenol) - prophylaxis antibiotics Patient s primary diagnosis: AML Other diagnosis/comorbity: history of possible pericarditis Interval History: continues to feel well. Minimal tooth pain. No parotid swelling. No fever s or other signs of infections.. Scheduled Medications Medication Dose Route Frequency Last Rate acyclovir (ZOVIRAX) tablet 800 mg 800 mg oral DAILY chlorhexidine (PERIDEX) mouthwash 15 mL 15 mL oral TID levofloxacin (LEVAQUIN) tablet 500 mg 500 mg oral DAILY posaconazole DR (NOXAFIL) tablet 300 mg 300 mg oral DAILY Please see MAR for PRN medications Physical exam is notable for: Vitals: Ht 1.9 m (6' 2.8"), Wt 82.101 kg (181 lb), BP 116/71, Pulse 67, Temperature 36.8 C (98.2 F), RR 16, SpO2 100%, BMI 22.74 kg/(m^2). HEENT: PERRL, anicteric OP without exudates. No gingival swelling Chest: No rales or wheeze Heart: regular without murmur Abdomen: soft and non-tender. Normal bowel sounds Ext: No edema Skin: No rashes. PIC line site clean Lab/x-ray findings. Recent Labs 07/04/15 0031 07/05/15 0010 07/05/15 2311 NA 139 140 140 K 4.3 4.5 4.0 CL 109* 107 107 BICARB 25 26 26 BUN 13 12 14 CR 1.17 1.13 0.93 GLU 103* 100* 116* CA 8.6 8.9 8.7 AST 29 25 25 ALT 34 36 39 AP 72 80 79 TBILI 0.5 0.5 0.4 TP 6.4 6.5 6.5 ALB 3.6 3.5 3.5 ANIONGAP 5 7 7 ANIONALBCOR 6 8 8 Recent Labs 07/04/15 0031 07/05/15 0010 07/05/15 2311 WBC 0.45* 0.53* 0.56* RBC 2.42* 2.64* 2.69* HB 7.1* 7.7* 8.0* HCT 20.0* 21.6* 22.0* MCV 82.6 81.8 81.8 MCHC 35.5 35.6 36.4 RDW 35.1 35.0* 34.9* PLT 22* 17* 15* NEUTROPHILCO 0.01* 0.02* 0.01* LYMPHSABS 0.28* 0.23* 0.33* MONOCYTECO 0.16 0.28 0.21 EOSCO 0.00 0.00 0.00 BASOPHILCO 0.00 0.00 0.00 I was present and rounded today with the NPP, Amira Lundy. I have independently exa mined and assessed the patient. I have personally interviewed Mr. Kelly, reviewed th e vitals, history/last 24 hour events and the labs/studies for today. I agree with all the N PP's findings of note. I agree with the NPP'sassessment and stated plan of care. See p ro note documented by the NPP for details of relevant issues and care plan for today. SEKOU BLANCHARD MD [facility] Amira Dean [employer] - 07/05/2015 11:27 AM PST Daily NPP Note - Chemotherapy Admit [facility] Attending: Sekou Blanchard MD [facility] physician: Dr. Yari Garcia. PCP: Pending Pcp ADDITION Date of Admission: 05/26/2015 Hematologic Malignancy: AML Reason for admission: Work-up and Induction Chemotherapy 24 Hour Events/Current Daily Plan: -AML (intermediate risk): Adm for w/u and induction with 3+7. Day 14 bmbx with residual dis ease (50-60% cellularity with 50% blasts). Now s/p HAM reinduction, waiting for count recove ry. -Pancytopenia d/t disease and chemo: ANC rising to 20 today. Standard transfusion parameter s, no transfusions required today. -Bilateral Parotitis, likely d/t Cytarabine per ENT and s/p Zosyn + Vanco on 2 separate occ asions: Now Resolved. Continue warm compresses, pain control, PO hydration. -Lytes: Standard electrolyte repletion parameters. No replacements required today. -Situational Anxiety, not relieved with Ativan. Xanax 0.5 mg TID PRN with improvement. -Mildly elevated sCr, unclear etiology (first noted 06/24): Stable, monitor daily. -R Upper Molar Pain d/t exposed nerve after cap fell off (first noted 07/02): Continue Chlo rhexidine rinses q 6 hrs and recommend dental work after counts recover prior to next chemo cycle. -Dispo: Possible early discharge pathway. Needs ANC of 100 per protocol. Tentatively plan f or recovery BMBx on 07/13/15 and f/u with Dr. Garcia on 07/15/15 (schedulers working on overbook). Subjective: Continues to have some mild tooth pain at areas of two known previous root uriel ls where he still needed to have crowns put on, but the area is no longer bleeding. Objective: Last Vitals: BP 126/68 | Pulse 63 | Temp 36.9 C (98.4 F) | RR 16 | Ht 1.9 m (6' 2.8") | Wt 82.645 kg (182 lb 3.2 oz) | SpO2 100% | BMI 22.89 kg/(m^2) 24 Hour Vital Min/Max: Systolic (24hrs), Av mmHg, Min:117 mmHg, Max:144 mmHg Diastolic (24hrs), Av mmHg, Min:60 mmHg, Max:90 mmHg Pulse Min: 57 Max: 97 Temp Min: 36.4 C (97.5 F) Max: 36.9 C (98.4 F) Resp Min: 16 Max: 16 SpO2 Min: 100 % Max: 100 % Intake/Output Summary (Last 24 hours) at 07/05/15 1127 Last data filed at 07/05/15 0900 Gross per 24 hour Intake 1130 ml Output 2250 ml Net -1120 ml Physical Exam: General: This is a male in no acute distress. Sitting upright at edge of bed. HEENT: PERRL. Sclerae anicteric. Mucosa pink and moist. R upper molar cracked Skin: No rashes, scattered petechiae on BLE. Chest: Lungs clear to auscultation bilat. CV: RRR, no murmurs. Abdomen: S/NT/ND with NABS. No HSM appreciated. Extremities: Pulses strong and equal bilaterally. No c/c/e. NeuroPsych: Alert and oriented x 3. Grossly nonfocal exam. CVC: PICC line dressing dry and intact Laboratory Results: Recent Labs 07/03/15 0008 07/04/15 0031 07/05/15 0010 NA 137 139 140 K 4.1 4.3 4.5 CL 106 109* 107 BICARB 23 25 26 BUN 16 13 12 CR 1.13 1.17 1.13 GLU 99 103* 100* CA 8.3* 8.6 8.9 AST 27 29 25 ALT 35 34 36 AP 81 72 80 TBILI 0.4 0.5 0.5 TP 7.0 6.4 6.5 ALB 3.9 3.6 3.5 Recent Labs 07/01/15 2357 07/03/15 0008 07/04/15 0031 07/05/15 0010 WBC 0.39* 0.34* 0.45* 0.53* RBC 2.61* 2.46* 2.42* 2.64* HB 7.9* 7.2* 7.1* 7.7* HCT 21.7* 20.5* 20.0* 21.6* PLT 15* 10* 22* 17* NEUTROPERC 2.6* -- 2.2* 3.1* LYMPHPERC 53.8* -- 62.2* 42.6* MONOPERC 43.6* -- 35.6* 53.5* BASOPERC 0.0 -- 0.0 0.0 EOSPERC 0.0* -- 0.0* 0.0* Meds: Reviewed on rounds, see current MAR for medication list SUMMARY OF PATIENT'S HOSPITALIZATION History of Present Illness: Khurram Kelly is 24 yo M with pmhx of pericarditis and new diagnosis of acute leukemia admitted for induction and management. Had been in usual state of [facility] 03/13/15 (the night of his wedding) at which time he noted bilateral ankle pain and swellin g. This persisted and worsened intermittently, notably when hunting on 03/19/15. Then after w ork, couldn't walk well 2/2 pain and inevitably couldn't bear weight on his feet. Presented to the ED and was diagnosed with cellulitis of the RLE, given antibiotics. During evaluation patient also noted to have pancytopenia with subsequent white blood cell differential ident ifying a predominance of early appearing monocytes. On 04/18/15 began to have pleuritic anterior chest pains, low-grade fevers occasionally up to 101. Also had onset of swelling and erythema over his left ankle, seen in the [facility]'s emergency room on 04/19/15. CT angiogram negative for blood clot. CBC demonstrated whi te count 15,300 with 59% monocytes, 3% immature monocytes, hemoglobin 11.8, platelets 146,00 0. He was apparently treated with antibiotics, also colchicine and anti-inflammatory agents - for possible dx of pericarditis - with complete resolution of his symptoms. After he finished the antibiotics and other medicines, the symptoms came back, repeat trip to the emergency room on 04/26/15. Repeat CT angiogram was again negative for pulmonary embo carmen or other abnormality. CBC showed white count 14,300 with 48% monocytes, 4% immature mono cytes, hemoglobin 12.8, platelets 180,000. He was again treated with the anti-inflammatory r maye colchicine, no antibiotics, again with complete resolution of symptoms. Was referred to Oncology and at that time had pleuritic anterior chest pain, low-grade feve rs. CBC demonstrated white count 17,600 with 66% monocytes, hemoglobin 11.8, platelets 115,0 00, did have 3.5% basophils. Review of his peripheral smear by pathology revealed many immat ure monocytes but no overt blasts. 05/19/15 had bone marrow bx confirming AML (see below) as well as flow cytometry. 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 -Results: 86% of blast equivalents, comprised of myeloblasts, monoblasts and promonocytes. Concurrent flow cytometry detected 23% myeloid blasts and 60% immature monocytic cells suppo rting this diagnosis. -Cytogenetics: Normal male karyotype -GeneTrails from OSH: triple negative for CEBPA , NPM1, FLT3 -Peripheral blood flow 05/27/15: Acute Myelomonocytic Leukemia (47% blasts and 30% monocyte s) -Cytogenetics: normal male karyotype -GeneTrails: NRAS mutation (40%) -Day 14 BM Bx 06/09/15: Residual AML with 50-60% marrow cellularity and approximately 50% bl asts -Plan to send telomere length and chromosomal breakage when he recovers Treatment: -Chemotherapy regimen: standard induction with 3+7 started 05/27/15 -Idarubicin 12 mg/m2 daily x 3 days -Cytarabine 100 mg/m2 CI IV daily x 7 days. -Re-induction chemotherapy regimen: HAM started 06/11/15 -Cytarabine 3000 mg/m2 over 3 hours q 12 hr x 6 doses total, day 1-3 -Pred Forte Eye drops (1%) 2 drops to each eye q 6 hours from day 1 through day 6. First d ose of Pred eye drops to be 1/2 hr before first Cytarabine dose on day 1. -Mitoxantrone 10mg/m2/day over 30 minutes IV on day 4-6 -Chemo Day: 25 (HAM) / 40 (3+7) Patient is a candidate for transplant based on Dx and prognostic feature with persistent disease day 14. Request insurance approval for typing. HLA typing sent 05/27/15. He has tw o brothers for potential donors, currently getting typed by Dr. Gacria. #Pancytopenia d/t treatment/disease -Antimicrobials as below -See supportive care #Mild allergic transfusion reaction to PRBCs (noted 07/03) -See supportive care #Supportive Care: Growth factor: Not indicated with this chemotherapy regimen. Labs: Continue to check CBC with diff daily Transfusion parameters: -Transfuse PRBCs for HCT <21% (Pre-med with Benadryl PRN d/t mild allergic reaction on ) -Transfuse PPH for platelet count <10,000 or sooner PRN s/s bleeding. HEENT: #R Upper Molar Pain d/t exposed nerve after cap fell off (first noted 07/02) - Stable -Chlorhexidine rinses q 6 hrs -Antimicrobials as below -Recommend dental work after counts recover prior to next chemo cycle. #Bilateral Parotitis, likely d/t Cytarabine per ENT - Resolved. L Parotitis (first noted ) and improved s/p Zosyn (06/07-06/13) + Vanco (06/09-06/12); then occurred bilatreally (no edward 06/16) s/p Zosyn (06/17-06/22) + Vancomycin (06/17-06/18) Cardiovascular: Prechemotherapy Echo results on 05/18: EF 60-65 %. Left ventricular diastol ic function is normal. #?Hx of Pericarditis s/p full course of Colchicine - Resolved. Presented to OSH on several visits to ED with CP. Echo done at OSH x 2 both normal, no noted pericarditis or effusions. Pulmonary: #Smoker - Stopped on admission. -Smoking cessation counseling offered -Nicotine gum PRN but has not used. GI: #CINV - Resolved. No effect with Scop patch -Antiemetics PRN /Renal: #Elevated sCr, unclear etiology (first noted 06/24) - Improving/Stable. (07/02) urine scree n positive, culture negative. Negative eosinophils. -1L NS bolus PRN; last given 07/02 Neurology: #Situational Anxiety - Controlled. Not relieved with Ativan -Xanax 0.5 mg TID PRN, switched from Ativan on 07/01 #Insomnia - Controlled -Zyprexa 10mg qhs PRN, switched from scheduled qhs on 07/02 Dermatology: #Contact Dermatitis d/t CHG wipes (noted 06/27 on back of hands, arms, legs) - Improving -Eucerin daily, Benadryl PRN #Superficial Dermatitis, Logan Calves (noted ~06/07 and Bx confirmed 06/09) - Resolved Reproductive: #Sperm Preservation - Completed 05/27/15 prior to chemotherapy Infectious Disease: No active issues #Prophylaxis: Bacterial: Levaquin Fungal: Posaconazole, trough level adequate 06/28 @ 0.9 Viral: Acyclovir PCP: Not indicated with this chemo regimen Fluid/Nutrition/Lytes: #Nutrition: Regular diet, No Kezia's yogurt or Kefir #Fluid: 1L NS PRN for PO intake <2L/day by 2200 #Lytes: Continue to check chemistries daily. Replace per supportive care protocol. Disposition: Will remain hospitalized until count recovery, may be eligible for early disc harge. Tentatively plan for recovery BMBx on 07/13/15 and f/u with Dr. Garcia on 07/15/15. ORLY Bianchi [facility] [id number] [facility] Mailcode: [id number] [place] [address] Sekou Castro MD - 07/05/2015 10:48 AM PST Malignant Hematology Attending Inpatient Progress Note: Date: 07/05/2015 Hospital day 40 Problem List: 1) AML presented on 03/13/15 with ankle pain and swelling. Seen in emergency room and d iagnosed with a cellulitis. A CBC done at that time noted pancytopenia with some immature m onocytes. Developed some pleuritic chest pains in 04/19/15. CTA did not show any clots. C BC showed a white count of 13.3 with 59% monocytes, 3% immature monocytes. His hemoglobin w as 11.8 and a platelet count of 146. He was thought to possibly have a pericarditis. Treat ed with colchicine and anti-inflammatory agents with resolution of his symptoms. Recurrent symptoms on 04/26 prompted a repeat CTA that was negative. His monocytosis persisted. Had a bone marrow biopsy on 05/19/15 that showed AML. He was admitted to [facility] on 05/26/15. Rev iew of his outside marrow adenoid tissue showed a 90% cellular marrow with flow cytometry re porting 23-6% immature monocytic cells. He was diagnosed with acute myelomonocytic leukemia . Flow cytometry of his peripheral blood showed his blast to express dim CD13, CD33, CD34, CD56, CD117 and CD123. His cytogenetics on his peripheral blood showed a normal karyotype. FISH with the AML and MDS probe panel were normal. Mutation analysis from his peripheral bl ood showed NRAS (p.G12C) mutation. He was started on induction with 3+7 on 05/27/15. His da y 14 marrow on 06/09/15 showed a 50-60% cellular marrow with approximately 50% blasts. He wa s started on a re-induction regimen with HAM on 06/11/15. Awaiting neutrophil recovery. ANC 0 .01 today Completed induction with 3+7 (05/27/15) day +40 - Idarubicin 12 mg/m2 daily x 3 days -Cytarabine 100 mg/m2 CI IV daily x 7 days. Re-induction chemotherapy regimen: HAM started 06/11/15, day +25 -Cytarabine 3000 mg/m2 over 3 hours q 12 hr x 6 doses total, day 1-3 -Pred Forte Eye drops (1%) 2 drops to each eye q 6 hours from day 1 through day 6. -Mitoxantrone 10mg/m2/day over 30 minutes IV on day 4-6 Transfuse packed red blood cells for hemoglobin less than 7 Transfuse platelets for platelet count less than 10 or clinically significant bleeding Consider early discharge when ANC is greater than 200 2) Peritonitis Developed some bilateral parotid swelling first noted on 06/07/15. Wa s treated initially with Zosyn and vancomycin for possible infection. Subsequently felt mor e likely consistent with a chemotherapy induced peritonitis. A CT scan of his face 06/07/15 showed enlargement and heterogeneous enhancement of the left parotid gland. Within the sourav cent soft tissue there was subcutaneous fat stranding and skin thickening. No recent parotid tenderness or swelling. 3) ID no fevers. Treated for a possible bacterial peritonitis. Had some teeth pain and restarted peridex Completed antibiotics Zosyn (06/07 06/13, 06/17 06/22) Vancomycin 06/09 06/12, 06/17 06/18) Continue prophylactic antibiotics Acyclovir 800 mg daily Levofloxacin 500 mg daily Posaconazole 300 mg daily 4) Peridontal infection - Has peridontal infection on clinical symptoms on admission where he had privious root canals. Lost his filling and had some bleeding. Improving - Continue antibiotics as above - Continue clinical monitoring - X-ray if symptoms progress 5) Supportive care: - electrolyte replacement - anti-nausea medication - analgesics (tylenol) - prophylaxis antibiotics Patient s primary diagnosis: AML Other diagnosis/comorbity: history of possible pericarditis Interval History: Overall doing well. No new complaints. Up and keeping active. Does have some anxiety regarding long hospitalziation and slow recovory of his blood counts. Scheduled Medications Medication Dose Route Frequency Last Rate acyclovir (ZOVIRAX) tablet 800 mg 800 mg oral DAILY chlorhexidine (PERIDEX) mouthwash 15 mL 15 mL oral TID levofloxacin (LEVAQUIN) tablet 500 mg 500 mg oral DAILY posaconazole DR (NOXAFIL) tablet 300 mg 300 mg oral DAILY Please see MAR for PRN medications Physical exam is notable for: Vitals: Ht 1.9 m (6' 2.8"), Wt 82.645 kg (182 lb 3.2 oz), BP 126/68, Pulse 63, Temperature 36.9 C (98.4 F), RR 16, SpO2 100%, BMI 22.89 kg/(m^2). HEENT: PERRL anciteric OP without ulcerations or bleeding Chest: clear to ascultation Heart: regular without murmur Abdomen: soft and non-tender. Normal bowel sounds. Ext: No edema Skin: No rashes Lab/x-ray findings. Recent Labs 07/03/15 0008 07/04/15 0031 07/05/15 0010 NA 137 139 140 K 4.1 4.3 4.5 CL 106 109* 107 BICARB 23 25 26 BUN 16 13 12 CR 1.13 1.17 1.13 GLU 99 103* 100* CA 8.3* 8.6 8.9 AST 27 29 25 ALT 35 34 36 AP 81 72 80 TBILI 0.4 0.5 0.5 TP 7.0 6.4 6.5 ALB 3.9 3.6 3.5 ANIONGAP 8 5 7 ANIONALBCOR 8 6 8 Recent Labs 07/01/15 2357 07/03/15 0008 07/04/15 0031 07/05/15 0010 WBC 0.39* 0.34* 0.45* 0.53* RBC 2.61* 2.46* 2.42* 2.64* HB 7.9* 7.2* 7.1* 7.7* HCT 21.7* 20.5* 20.0* 21.6* MCV 83.1 83.3 82.6 81.8 MCHC 36.4 35.1 35.5 35.6 RDW 34.8* 35.3 35.1 35.0* PLT 15* 10* 22* 17* NEUTROPHILCO 0.01* -- 0.01* 0.02* LYMPHSABS 0.21* -- 0.28* 0.23* MONOCYTECO 0.17 -- 0.16 0.28 EOSCO 0.00 -- 0.00 0.00 BASOPHILCO 0.00 -- 0.00 0.00 I was present and rounded today with the NPP, Amira Lundy. I have independently exa mined and assessed the patient. I have personally interviewed Mr. Kelly, reviewed th e vitals, history/last 24 hour events and the labs/studies for today. I agree with all the N PP's findings of note. I agree with the NPP'sassessment and stated plan of care. See p ro note documented by the NPP for details of relevant issues and care plan for today. SEKOU BLANCHARD MD [facility] Kray Francis PA - 07/04/2015 9:21 AM PST Daily NPP Note - Chemotherapy Admit [facility] Attending: Sekou Blanchard MD [facility] physician: Dr. Yari Garcia. PCP: Pending Pcp ADDITION Date of Admission: 05/26/2015 Hematologic Malignancy: AML Reason for admission: Work-up and Induction Chemotherapy 24 Hour Events/Current Daily Plan: -AML (intermediate risk): Adm for w/u and induction with 3+7. Day 14 bmbx with residual dis ease (50-60% cellularity with 50% blasts). -Day 24 HAM reinduction, waiting for count recovery. -Pancytopenia d/t disease and chemo: WBC up a little at 0.45 today but no clear recovery a t this time. -Standard transfusion parameters. Blood transfused today. -Bilateral Parotitis, likely d/t Cytarabine per ENT and s/p Zosyn + Vanco on 2 separate occ asions: Now Resolved. Continue warm compresses, pain control, PO hydration. -Lytes: Standard electrolyte repletion parameters. No replacements required today. -Situational Anxiety, not relieved with Ativan. Xanax 0.5 mg TID PRN with improvement. -Mildly elevated sCr, unclear etiology (first noted 06/24): improved overall, monitor daily . -Tooth pain; cap fell off tooth and is irritated with mild bleeding. Continue Chlorhexidine rinses and recommend dental work after counts recover prior to next chemo cycle. -Dispo: Possible early discharge pathway, will need to coordinate Sunday. Needs ANC of 100 per protocol. Tentatively plan for recovery BMBx on 07/13/15 and f/u with Dr. Garcia on 07/15/15 ( schedulers working on overbook). Subjective: Continues to have some mild tooth pain at areas of two known previous root uriel ls where he still needed to have crowns put on. Tastes blood in his mouth every once in a wh ile but not significant amount. Cheek swelling has completely resolved. Otherwise feeling ok ay. Objective: Last Vitals: BP 118/66 | Pulse 62 | Temp 36.8 C (98.2 F) | RR 16 | Ht 1.9 m (6' 2.8") | Wt 82.555 kg (182 lb) | SpO2 100% | BMI 22.87 kg/(m^2) 24 Hour Vital Min/Max: Systolic (24hrs), Av mmHg, Min:114 mmHg, Max:141 mmHg Diastolic (24hrs), Av mmHg, Min:57 mmHg, Max:77 mmHg Pulse Min: 62 Max: 80 Temp Min: 36.7 C (98.1 F) Max: 37 C (98.6 F) Resp Min: 16 Max: 18 SpO2 Min: 99 % Max: 100 % Intake/Output Summary (Last 24 hours) at 07/04/15 0921 Last data filed at 07/04/15 0800 Gross per 24 hour Intake 3712 ml Output 4705 ml Net -993 ml Physical Exam: General: This is a male in no acute distress. Sitting up at edge of bed. HEENT: PERRL. Sclerae anicteric. Mucosa pink and moist. Skin: No rashes, scattered petechaie. Chest: Lungs clear to auscultation bilat. CV: RRR, no murmurs. Abdomen: S/NT/ND with NABS. No HSM appreciated. Extremities: Pulses strong and equal bilaterally. No c/c/e. NeuroPsych: Alert and oriented x 3. Grossly nonfocal exam. CVC: PICC line dressing dry and intact Laboratory Results: Recent Labs 07/01/15 2357 07/03/15 0008 07/04/15 0031 NA 136 137 139 K 4.2 4.1 4.3 CL 105 106 109* BICARB 25 23 25 BUN 17 16 13 CR 1.35* 1.13 1.17 GLU 117* 99 103* CA 8.9 8.3* 8.6 AST 22 27 29 ALT 33 35 34 AP 81 81 72 TBILI 0.4 0.4 0.5 TP 6.9 7.0 6.4 ALB 3.8 3.9 3.6 Recent Labs 07/01/15 0008 07/01/15 2357 07/03/15 0008 07/04/15 0031 WBC 0.37* 0.39* 0.34* 0.45* RBC 2.70* 2.61* 2.46* 2.42* HB 8.1* 7.9* 7.2* 7.1* HCT 22.5* 21.7* 20.5* 20.0* PLT 23* 15* 10* 22* NEUTROPERC 0.0* 2.6* -- 2.2* LYMPHPERC 59.5* 53.8* -- 62.2* MONOPERC 40.5* 43.6* -- 35.6* BASOPERC 0.0 0.0 -- 0.0 EOSPERC 0.0* 0.0* -- 0.0* Meds: Reviewed on rounds, see current MAR for medication list SUMMARY OF PATIENT'S HOSPITALIZATION History of Present Illness: Khurram Kelly is 24 yo M with pmhx of pericarditis and new diagnosis of acute leukemia admitted for induction and management. Had been in usual state of [facility] 03/13/15 (the night of his wedding) at which time he noted bilateral ankle pain and swellin g. This persisted and worsened intermittently, notably when hunting on 03/19/15. Then after w ork, couldn't walk well 2/2 pain and inevitably couldn't bear weight on his feet. Presented to the ED and was diagnosed with cellulitis of the RLE, given antibiotics. During evaluation patient also noted to have pancytopenia with subsequent white blood cell differential ident ifying a predominance of early appearing monocytes. On 04/18/15 began to have pleuritic anterior chest pains, low-grade fevers occasionally up to 101. Also had onset of swelling and erythema over his left ankle, seen in the [facility]'s emergency room on 04/19/15. CT angiogram negative for blood clot. CBC demonstrated whi te count 15,300 with 59% monocytes, 3% immature monocytes, hemoglobin 11.8, platelets 146,00 0. He was apparently treated with antibiotics, also colchicine and anti-inflammatory agents - for possible dx of pericarditis - with complete resolution of his symptoms. After he finished the antibiotics and other medicines, the symptoms came back, repeat trip to the emergency room on 04/26/15. Repeat CT angiogram was again negative for pulmonary embo carmen or other abnormality. CBC showed white count 14,300 with 48% monocytes, 4% immature mono cytes, hemoglobin 12.8, platelets 180,000. He was again treated with the anti-inflammatory r maye colchicine, no antibiotics, again with complete resolution of symptoms. Was referred to Oncology and at that time had pleuritic anterior chest pain, low-grade feve rs. CBC demonstrated white count 17,600 with 66% monocytes, hemoglobin 11.8, platelets 115,0 00, did have 3.5% basophils. Review of his peripheral smear by pathology revealed many immat ure monocytes but no overt blasts. 05/19/15 had bone marrow bx confirming AML (see below) as well as flow cytometry. 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 -Results: 86% of blast equivalents, comprised of myeloblasts, monoblasts and promonocytes. Concurrent flow cytometry detected 23% myeloid blasts and 60% immature monocytic cells suppo rting this diagnosis. -Cytogenetics: Normal male karyotype -GeneTrails from OSH: triple negative for CEBPA , NPM1, FLT3 -Peripheral blood flow 05/27/15: Acute Myelomonocytic Leukemia (47% blasts and 30% monocyte s) -Cytogenetics: normal male karyotype -GeneTrails: NRAS mutation (40%) -Day 14 BM Bx 06/09/15: Residual AML with 50-60% marrow cellularity and approximately 50% bl asts -Plan to send telomere length and chromosomal breakage when he recovers Treatment: -Chemotherapy regimen: standard induction with 3+7 started 05/27/15 -Idarubicin 12 mg/m2 daily x 3 days -Cytarabine 100 mg/m2 CI IV daily x 7 days. -Re-induction chemotherapy regimen: HAM started 06/11/15 -Cytarabine 3000 mg/m2 over 3 hours q 12 hr x 6 doses total, day 1-3 -Pred Forte Eye drops (1%) 2 drops to each eye q 6 hours from day 1 through day 6. First d ose of Pred eye drops to be 1/2 hr before first Cytarabine dose on day 1. -Mitoxantrone 10mg/m2/day over 30 minutes IV on day 4-6 -Chemo Day: 24(HAM) / 39 (3+7) Patient is a candidate for transplant based on Dx and prognostic feature with persistent disease day 14. Request insurance approval for typing. HLA typing sent 05/27/15. He has tw o brothers for potential donors, currently getting typed by Dr. Garcia. #Pancytopenia d/t treatment/disease: -Antimicrobials as below -See supportive care #Supportive Care: Growth factor: Not indicated with this chemotherapy regimen. Labs: Continue to check CBC with diff daily Transfusion parameters: -Transfuse PRBCs for HCT <21% -Transfuse PPH for platelet count <10,000 or sooner PRN s/s bleeding. HEENT: #Bilateral Parotitis, likely d/t Cytarabine per ENT - Now resolved. L Parotitis (first note d 06/07) and improved s/p Zosyn (06/07-06/13) + Vanco (06/09-06/12); then occurred bilatreally (noted 06/16) s/p Zosyn (06/17-06/22) + Vancomycin (06/17-06/18) -Resolved with conservative management with warm compresses, sialogogues, pain control and hydration Cardiovascular: Prechemotherapy Echo results on 05/18: EF 60-65 %. Left ventricular diastol ic function is normal. #?Hx of Pericarditis s/p full course of Colchicine - Resolved. Presented to OSH on several visits to ED with CP. Echo done at OSH x 2 both normal, no noted pericarditis or effusions. Pulmonary: #Current Smoker; stopped on admission. -Smoking cessation counseling offered -Nicotine gum PRN but has not used. GI: #CINV - Resolved. No effect with Scop patch -Antiemetics PRN /Renal: #Elevated sCr, unclear etiology (first noted 06/24) - trended down and now high normal. -uric acid wnl -F/U (07/02) urine screen positive, culture negative. Negative eosinophils. -1L NS bolus PRN; last given 07/02 Neurology: #Situational Anxiety - Not relieved with Ativan -Xanax 0.5 mg TID PRN, switched from Ativan on 07/01 #Insomnia - Controlled -Zyprexa 10mg qhs PRN, switched from scheduled qhs on 07/02 Dermatology: #Contact Dermatitis d/t CHG wipes (noted 06/27 on back of hands, arms, legs) - Improving -Eucerin daily, Benadryl PRN #Superficial Dermatitis, Logan Calves (noted ~06/07 and Bx confirmed 06/09) - Resolved -F/U (06/09) R leg Cxs: NTD Reproductive: #Sperm Preservation - Completed 05/27/15 prior to chemotherapy Infectious Disease: No active issues #Prophylaxis: Bacterial: Levaquin Fungal: Posaconazole, trough level adequate 06/28 @ 0.9 Viral: Acyclovir PCP: Not indicated with this chemo regimen Fluid/Nutrition/Lytes: #Nutrition: Regular diet, No Kezia's yogurt or Kefir #Fluid: 1L NS PRN for PO intake <2L/day by 2200 #Lytes: Continue to check chemistries daily. Replace per supportive care protocol. Disposition: Will remain hospitalized until count recovery, may be eligible for early disc harge. Tentatively plan for recovery BMBx on 07/13/15 and f/u with Dr. Garcia on 07/15/15. [facility] [address] [place] [address] Mailcode: [id number] [id number] Sekou Castro MD - 07/04/2015 8:46 AM PST Mal[facility] Hematology Attending Inpatient Progress Note: Date: 07/04/2015 Hospital day 39 Problem List: 1) AML presented on 03/13/15 with ankle pain and swelling. Seen in emergency room and d iagnosed with a cellulitis. A CBC done at that time noted pancytopenia with some immature m onocytes. Developed some pleuritic chest pains in 04/19/15. CTA did not show any clots. C BC showed a white count of 13.3 with 59% monocytes, 3% immature monocytes. His hemoglobin w as 11.8 and a platelet count of 146. He was thought to possibly have a pericarditis. Treat ed with colchicine and anti-inflammatory agents with resolution of his symptoms. Recurrent symptoms on 04/26 prompted a repeat CTA that was negative. His monocytosis persisted. Had a bone marrow biopsy on 05/19/15 that showed AML. He was admitted to [facility] on 05/26/15. Rev iew of his outside marrow adenoid tissue showed a 90% cellular marrow with flow cytometry re porting 23-6% immature monocytic cells. He was diagnosed with acute myelomonocytic leukemia . Flow cytometry of his peripheral blood showed his blast to express dim CD13, CD33, CD34, CD56, CD117 and CD123. His cytogenetics on his peripheral blood showed a normal karyotype. FISH with the AML and MDS probe panel were normal. Mutation analysis from his peripheral bl ood showed NRAS (p.G12C) mutation. He was started on induction with 3+7 on 05/27/15. His da y 14 marrow on 06/09/15 showed a 50-60% cellular marrow with approximately 50% blasts. He wa s started on a re-induction regimen with HAM on 06/11/15. Awaiting neutrophil recovery. ANC 0 .01 today Completed induction with 3+7 (05/27/15) day +39 - Idarubicin 12 mg/m2 daily x 3 days -Cytarabine 100 mg/m2 CI IV daily x 7 days. Re-induction chemotherapy regimen: HAM started 06/11/15, day +24 -Cytarabine 3000 mg/m2 over 3 hours q 12 hr x 6 doses total, day 1-3 -Pred Forte Eye drops (1%) 2 drops to each eye q 6 hours from day 1 through day 6. -Mitoxantrone 10mg/m2/day over 30 minutes IV on day 4-6 Transfuse packed red blood cells for hemoglobin less than 7 Transfuse platelets for platelet count less than 10 or clinically significant bleeding Consider early discharge when ANC is greater than 200 2) Peritonitis Developed some bilateral parotid swelling first noted on 06/07/15. Neno sam treated initially with Zosyn and vancomycin for possible infection. Subsequently felt mor e likely consistent with a chemotherapy induced peritonitis. A CT scan of his face 06/07/15 showed enlargement and heterogeneous enhancement of the left parotid gland. Within the sourav cent soft tissue there was subcutaneous fat stranding and skin thickening. No recent parotid tenderness or swelling. 3) ID no fevers. Treated for a possible bacterial peritonitis. Had some teeth pain and restarted peridex Completed antibiotics Zosyn (06/07 06/13, 06/17 06/22) Vancomycin 06/09 06/12, 06/17 06/18) Continue prophylactic antibiotics Acyclovir 800 mg daily Levofloxacin 500 mg daily Posaconazole 300 mg daily 4) Supportive care: - electrolyte replacement - anti-nausea medication - analgesics (tylenol) - prophylaxis antibiotics Patient s primary diagnosis: AML Other diagnosis/comorbity: history of possible pericarditis Interval History: Feels well today. Continued mild tooth pain. No new complaints. Scheduled Medications Medication Dose Route Frequency Last Rate acyclovir (ZOVIRAX) tablet 800 mg 800 mg oral DAILY chlorhexidine (PERIDEX) mouthwash 15 mL 15 mL oral TID levofloxacin (LEVAQUIN) tablet 500 mg 500 mg oral DAILY posaconazole DR (NOXAFIL) tablet 300 mg 300 mg oral DAILY Please see MAR for PRN medications Physical exam is notable for: Vitals: Ht 1.9 m (6' 2.8"), Wt 82.555 kg (182 lb), BP 118/66, Pulse 62, Temperature 36.8 C (98.2 F), RR 16, SpO2 100%, BMI 22.87 kg/(m^2). HEENT: PERRL, Anicteric, no palpable masses or induration in the parotid glands, oropharyn x without any gingival bleeding or erythema. No ulcerations. Chest: No rales or wheeze Heart: Regular without murmur Abdomen: Soft and nontender, normal bowel sounds, no distention Ext: No lower extremity edema Skin: No rashes or petechiae Lab/x-ray findings. Recent Labs 07/01/15 2357 07/03/15 0008 07/04/15 0031 NA 136 137 139 K 4.2 4.1 4.3 CL 105 106 109* BICARB 25 23 25 BUN 17 16 13 CR 1.35* 1.13 1.17 GLU 117* 99 103* CA 8.9 8.3* 8.6 AST 22 27 29 ALT 33 35 34 AP 81 81 72 TBILI 0.4 0.4 0.5 TP 6.9 7.0 6.4 ALB 3.8 3.9 3.6 ANIONGAP 6 8 5 ANIONALBCOR 6 8 6 Recent Labs 07/01/15 0008 07/01/15 2357 07/03/15 0008 07/04/15 0031 WBC 0.37* 0.39* 0.34* 0.45* RBC 2.70* 2.61* 2.46* 2.42* HB 8.1* 7.9* 7.2* 7.1* HCT 22.5* 21.7* 20.5* 20.0* MCV 83.3 83.1 83.3 82.6 MCHC 36.0 36.4 35.1 35.5 RDW 35.2 34.8* 35.3 35.1 PLT 23* 15* 10* 22* NEUTROPHILCO 0.00* 0.01* -- 0.01* LYMPHSABS 0.22* 0.21* -- 0.28* MONOCYTECO 0.15 0.17 -- 0.16 EOSCO 0.00 0.00 -- 0.00 BASOPHILCO 0.00 0.00 -- 0.00 I was present and rounded today with the NPP, Kary Tracey. I have independently exa mined and assessed the patient. I have personally interviewed Mr. Kelly, reviewed th e vitals, history/last 24 hour events and the labs/studies for today. I agree with all the N PP's findings of note. I agree with the NPP'sassessment and stated plan of care. See p ro note documented by the NPP for details of relevant issues and care plan for today. SEKOU BLANCHARD MD [facility] Kary Francis PA - 07/03/2015 1:16 PM PST Daily NPP Note - Chemotherapy Admit [facility] Attending: Sekou Blanchard MD [facility] physician: Dr. Yari Garcia. PCP: Pending Pcp ADDITION Date of Admission: 05/26/2015 Hematologic Malignancy: AML Reason for admission: Work-up and Induction Chemotherapy 24 Hour Events/Current Daily Plan: -AML (intermediate risk): Adm for w/u and induction with 3+7. Day 14 bmbx with residual dis ease (50-60% cellularity with 50% blasts). -Day 23 HAM reinduction, waiting for count recovery. -Pancytopenia d/t disease and chemo: WBC stable at 0.3-0.4. Standard transfusion paramete rs. Blood and platelets transfused today. -Bilateral Parotitis, likely d/t Cytarabine per ENT and s/p Zosyn + Vanco on 2 separate occ asions: Nearly resolved. Continue warm compresses, pain control, PO hydration. -Contact Dermatitis d/t PAVAN wipes (first noted 06/27): Improving. Continues Eucerin. Benad ryl PRN. -Lytes: WNL. Standard electrolyte repletion parameters. No replacements required today. -Situational Anxiety, not relieved with Ativan. Switched to Xanax 0.5 mg TID PRN 07/01 with improvement. -Rising sCr, unclear etiology (first noted 06/24): improved today but still elevated. Urine culture pending. -Tooth pain; cap fell of tooth and is irritated with mild bleeding. Continue Chlorhexidine rinses and recommend dental work after counts recover prior to next chemo cycle. -Mild allergic transfusion reaction: this morning to platelets/blood (given back to back bu t reaction started after blood started). Tranfusion reaction workup negative. Premed with be nadryl. -Dispo: Possible early discharge pathway, will need to coordinate Sunday. Needs ANC of 100 per protocol. Tentatively plan for recovery BMBx on 07/13/15 and f/u with Dr. Garcia on 07/15/15 ( schedulers working on overbook). Subjective: Had allergic reaction with hives to blood this morning; mostly resolved now. Smith ving some mild tooth pain at areas of two known previous root canals where he still needed t o have crowns put on. Objective: Last Vitals: BP 141/70 | Pulse 76 | Temp 36.7 C (98.1 F) | RR 16 | Ht 1.9 m (6' 2.8") | Wt 83.689 kg (184 lb 8 oz) | SpO2 100% | BMI 23.18 kg/(m^2) 24 Hour Vital Min/Max: Systolic (24hrs), Av mmHg, Min:116 mmHg, Max:141 mmHg Diastolic (24hrs), Av mmHg, Min:58 mmHg, Max:82 mmHg Pulse Min: 68 Max: 91 Temp Min: 36.2 C (97.2 F) Max: 36.9 C (98.4 F) Resp Min: 16 Max: 17 SpO2 Min: 100 % Max: 100 % Intake/Output Summary (Last 24 hours) at 07/03/15 1316 Last data filed at 07/03/15 1200 Gross per 24 hour Intake 5228 ml Output 5005 ml Net 223 ml Physical Exam: General: This is a male in no acute distress. Sitting up at edge of bed. HEENT: PERRL. Sclerae anicteric. Mucosa pink and moist. Skin: Fading hives on legs. Scatterred folliculitis/ Chest: Lungs clear to auscultation bilat. CV: RRR, no murmurs. Abdomen: S/NT/ND with NABS. No HSM appreciated. Extremities: Pulses strong and equal bilaterally. No c/c/e. NeuroPsych: Alert and oriented x 3. Grossly nonfocal exam. CVC: PICC line dressing dry and intact Laboratory Results: Recent Labs 07/01/15 00007/01/15235607/03/15 0008 NA 136 136 137 K 4.4 4.2 4.1 CL 104 105 106 BICARB 24 25 23 BUN 16 17 16 CR 1.18 1.35* 1.13 GLU 108* 117* 99 CA 9.0 8.9 8.3* AST 22 22 27 ALT 38 33 35 AP 79 81 81 TBILI 0.4 0.4 0.4 TP 7.3 6.9 7.0 ALB 3.9 3.8 3.9 Recent Labs 06/24/15 2300 06/29/15 2310 07/01/15 0008 07/01/15235607/03/15 0008 WBC 0.17* < > 0.28* 0.37* 0.39* 0.34* RBC 2.80* < > 2.77* 2.70* 2.61* 2.46* HB 8.3* < > 8.3* 8.1* 7.9* 7.2* HCT 23.4* < > 23.3* 22.5* 21.7* 20.5* PLT 20* < > 10* 23* 15* 10* NEUTROPERC 0.0* -- 0.0* 0.0* 2.6* -- LYMPHPERC 94.1* -- -- 59.5* 53.8* -- MONOPERC 5.9 -- -- 40.5* 43.6* -- BASOPERC 0.0 -- -- 0.0 0.0 -- EOSPERC 0.0* -- -- 0.0* 0.0* -- < > = values in this interval not displayed. Meds: Reviewed on rounds, see current MAR for medication list SUMMARY OF PATIENT'S HOSPITALIZATION History of Present Illness: Khurram Kelly is 24 yo M with pmhx of pericarditis and new diagnosis of acute leukemia admitted for induction and management. Had been in usual state of [facility] 03/13/15 (the night of his wedding) at which time he noted bilateral ankle pain and swellin g. This persisted and worsened intermittently, notably when hunting on 03/19/15. Then after w ork, couldn't walk well 2/2 pain and inevitably couldn't bear weight on his feet. Presented to the ED and was diagnosed with cellulitis of the RLE, given antibiotics. During evaluation patient also noted to have pancytopenia with subsequent white blood cell differential ident ifying a predominance of early appearing monocytes. On 04/18/15 began to have pleuritic anterior chest pains, low-grade fevers occasionally up to 101. Also had onset of swelling and erythema over his left ankle, seen in the [facility]'s emergency room on 04/19/15. CT angiogram negative for blood clot. CBC demonstrated whi te count 15,300 with 59% monocytes, 3% immature monocytes, hemoglobin 11.8, platelets 146,00 0. He was apparently treated with antibiotics, also colchicine and anti-inflammatory agents - for possible dx of pericarditis - with complete resolution of his symptoms. After he finished the antibiotics and other medicines, the symptoms came back, repeat trip to the emergency room on 04/26/15. Repeat CT angiogram was again negative for pulmonary embo carmen or other abnormality. CBC showed white count 14,300 with 48% monocytes, 4% immature mono cytes, hemoglobin 12.8, platelets 180,000. He was again treated with the anti-inflammatory r maye colchicine, no antibiotics, again with complete resolution of symptoms. Was referred to Oncology and at that time had pleuritic anterior chest pain, low-grade feve rs. CBC demonstrated white count 17,600 with 66% monocytes, hemoglobin 11.8, platelets 115,0 00, did have 3.5% basophils. Review of his peripheral smear by pathology revealed many immat ure monocytes but no overt blasts. 05/19/15 had bone marrow bx confirming AML (see below) as well as flow cytometry. 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 -Results: 86% of blast equivalents, comprised of myeloblasts, monoblasts and promonocytes. Concurrent flow cytometry detected 23% myeloid blasts and 60% immature monocytic cells suppo rting this diagnosis. -Cytogenetics: Normal male karyotype -GeneTrails from OSH: triple negative for CEBPA , NPM1, FLT3 -Peripheral blood flow 05/27/15: Acute Myelomonocytic Leukemia (47% blasts and 30% monocyte s) -Cytogenetics: normal male karyotype -GeneTrails: NRAS mutation (40%) -Day 14 BM Bx 06/09/15: Residual AML with 50-60% marrow cellularity and approximately 50% bl asts -Plan to send telomere length and chromosomal breakage when he recovers Treatment: -Chemotherapy regimen: standard induction with 3+7 started 05/27/15 -Idarubicin 12 mg/m2 daily x 3 days -Cytarabine 100 mg/m2 CI IV daily x 7 days. -Re-induction chemotherapy regimen: HAM started 06/11/15 -Cytarabine 3000 mg/m2 over 3 hours q 12 hr x 6 doses total, day 1-3 -Pred Forte Eye drops (1%) 2 drops to each eye q 6 hours from day 1 through day 6. First d ose of Pred eye drops to be 1/2 hr before first Cytarabine dose on day 1. -Mitoxantrone 10mg/m2/day over 30 minutes IV on day 4-6 -Chemo Day: 23 (HAM) / 38 (3+7) Patient is a candidate for transplant based on Dx and prognostic feature with persistent disease day 14. Request insurance approval for typing. HLA typing sent 05/27/15. He has tw o brothers for potential donors, currently getting typed by Dr. Garcia. #Pancytopenia d/t treatment/disease: -Antimicrobials as below -See supportive care #Supportive Care: Growth factor: Not indicated with this chemotherapy regimen. Labs: Continue to check CBC with diff daily Transfusion parameters: -Transfuse PRBCs for HCT <21% -Transfuse PPH for platelet count <10,000 or sooner PRN s/s bleeding. HEENT: #Bilateral Parotitis, likely d/t Cytarabine per ENT - Improving. L Parotitis (first noted 08/07) and improved s/p Zosyn (06/07-06/13) + Vanco (06/09-06/12); then occurred bilatreally (n oted 06/16) s/p Zosyn (06/17-06/22) + Vancomycin (06/17-06/18) -Conservative management with warm compresses, sialogogues, pain control and hydration -Oxycodone PRN -Chlorhexidine s/s 15 mL q 6 hrs PRN Cardiovascular: Prechemotherapy Echo results on 05/18: EF 60-65 %. Left ventricular diastol ic function is normal. #?Hx of Pericarditis s/p full course of Colchicine - Resolved. Presented to OSH on several visits to ED with CP. Echo done at OSH x 2 both normal, no noted pericarditis or effusions. Pulmonary: #Current Smoker -Smoking cessation counseling offered -Nicotine gum PRN -Consider Nicotine patch if symptoms not controlled GI: #CINV - Resolved. No effect with Scop patch -Antiemetics PRN /Renal: #Rising sCr, unclear etiology (first noted 06/24) - 1.13 -uric acid wnl -F/U (07/02) urine screen positive, culture pending. negative eosinophils -1L NS bolus PRN; last given 07/02 Neurology: #Situational Anxiety - Not relieved with Ativan -Xanax 0.5 mg TID PRN, switched from Ativan on 07/01 #Insomnia - Controlled -Zyprexa 10mg qhs PRN, switched from scheduled qhs on 07/02 Dermatology: #Contact Dermatitis d/t CHG wipes (noted 06/27 on back of hands, arms, legs) - Improving -Eucerin daily -Benadryl PRN #Superficial Dermatitis, Logan Calves (noted ~06/07 and Bx confirmed 06/09) - Resolved -F/U (06/09) R leg Cxs: NTD Reproductive: #Sperm Preservation - Completed 05/27/15 prior to chemotherapy Infectious Disease: No active issues #Prophylaxis: Bacterial: Levaquin Fungal: Posaconazole, trough level adequate 06/28 @ 0.9 Viral: Acyclovir PCP: Not indicated with this chemo regimen Fluid/Nutrition/Lytes: #Nutrition: Regular diet, No Kezia's yogurt or Kefir #Fluid: 1L NS PRN for PO intake <2L/day by 2200 #Lytes: Continue to check chemistries daily. Replace per supportive care protocol. Disposition: Will remain hospitalized until count recovery, may be eligible for early disc harge. Tentatively plan for recovery BMBx on 07/13/15 and f/u with Dr. Garcia on 07/15/15. [facility] [address] [place] [address] Mailcode: [id number] [id number] Sekou Castro MD - 07/03/2015 11:24 AM PST Malignant Hematology Attending Inpatient Progress Note: Date: 07/03/2015 Hospital day 38 Problem List: 1) AML presented on 03/13/15 with ankle pain and swelling. Seen in emergency room and d iagnosed with a cellulitis. A CBC done at that time noted pancytopenia with some immature m onocytes. Developed some pleuritic chest pains in 04/19/15. CTA did not show any clots. C BC showed a white count of 13.3 with 59% monocytes, 3% immature monocytes. His hemoglobin w as 11.8 and a platelet count of 146. He was thought to possibly have a pericarditis. Treat ed with colchicine and anti-inflammatory agents with resolution of his symptoms. Recurrent symptoms on 04/26 prompted a repeat CTA that was negative. His monocytosis persisted. Had a bone marrow biopsy on 05/19/15 that showed AML. He was admitted to [facility] on 05/26/15. Rev iew of his outside marrow adenoid tissue showed a 90% cellular marrow with flow cytometry re porting 23-6% immature monocytic cells. He was diagnosed with acute myelomonocytic leukemia . Flow cytometry of his peripheral blood showed his blast to express dim CD13, CD33, CD34, CD56, CD117 and CD123. His cytogenetics on his peripheral blood showed a normal karyotype. FISH with the AML and MDS probe panel were normal. Mutation analysis from his peripheral bl ood showed NRAS (p.G12C) mutation. He was started on induction with 3+7 on 05/27/15. His da y 14 marrow on 06/09/15 showed a 50-60% cellular marrow with approximately 50% blasts. He neno sam started on a re-induction regimen with HAM on 06/11/15. Completed induction with 3+7 (05/27/15) day +38 - Idarubicin 12 mg/m2 daily x 3 days -Cytarabine 100 mg/m2 CI IV daily x 7 days. Re-induction chemotherapy regimen: HAM started 06/11/15, day +23 -Cytarabine 3000 mg/m2 over 3 hours q 12 hr x 6 doses total, day 1-3 -Pred Forte Eye drops (1%) 2 drops to each eye q 6 hours from day 1 through day 6. -Mitoxantrone 10mg/m2/day over 30 minutes IV on day 4-6 Transfuse packed red blood cells for hemoglobin less than 7 Transfuse platelets for platelet count less than 10 or clinically significant bleeding Consider early discharge when ANC is greater than 200 2) Peritonitis Developed some bilateral parotid swelling first noted on 06/07/15. Neno sam treated initially with Zosyn and vancomycin for possible infection. Subsequently felt mor e likely consistent with a chemotherapy induced peritonitis. A CT scan of his face 06/07/15 showed enlargement and heterogeneous enhancement of the left parotid gland. Within the sourav cent soft tissue there was subcutaneous fat stranding and skin thickening. 3) ID no fevers. Treated for a possible bacterial peritonitis. Completed antibiotics Zosyn (06/07 06/13, 06/17 06/22) Vancomycin 06/09 06/12, 06/17 06/18) Continue prophylactic antibiotics Acyclovir 800 mg daily Levofloxacin 500 mg daily Posaconazole 300 mg daily 4) Supportive care: - electrolyte replacement - anti-nausea medication - analgesics (tylenol) - prophylaxis antibiotics Patient s primary diagnosis: AML Other diagnosis/comorbity: history of possible pericarditis Interval History: noting some more gingival/jaw pain in areas of his teeth that have had pr ior root canal. No fevers. Parotid glands are not tender or causing him any discomfort. O therwise feels well.. Scheduled Medications Medication Dose Route Frequency Last Rate acyclovir (ZOVIRAX) tablet 800 mg 800 mg oral DAILY chlorhexidine (PERIDEX) mouthwash 15 mL 15 mL oral TID levofloxacin (LEVAQUIN) tablet 500 mg 500 mg oral DAILY posaconazole DR (NOXAFIL) tablet 300 mg 300 mg oral DAILY Please see MAR for PRN medications Physical exam is notable for: Vitals: Ht 1.9 m (6' 2.8"), Wt 83.689 kg (184 lb 8 oz), BP 123/69, Pulse 83, Temperature 36 .2 C (97.2 F), RR 16, SpO2 100%, BMI 23.18 kg/(m^2). HEENT: PERRL, Anicteric, no palpable masses or induration in the parotid glands, oropharyn x without any gingival bleeding or erythema. No ulcerations Chest: Clear to auscultation Heart: Regular without murmur Abdomen: Soft and nontender, normal bowel sounds, no distention Ext: No lower extremity edema Skin: No rashes or petechiae Lab/x-ray findings. Recent Labs 07/01/15 0008 07/01/15 2357 07/03/15 0008 NA 136 136 137 K 4.4 4.2 4.1 CL 104 105 106 BICARB 24 25 23 BUN 16 17 16 CR 1.18 1.35* 1.13 GLU 108* 117* 99 CA 9.0 8.9 8.3* AST 22 22 27 ALT 38 33 35 AP 79 81 81 TBILI 0.4 0.4 0.4 TP 7.3 6.9 7.0 ALB 3.9 3.8 3.9 ANIONGAP 8 6 8 ANIONALBCOR 8 6 8 Recent Labs 06/24/15 2300 07/01/15 0008 07/01/15 2357 07/03/15 0008 WBC 0.17* < > 0.37* 0.39* 0.34* RBC 2.80* < > 2.70* 2.61* 2.46* HB 8.3* < > 8.1* 7.9* 7.2* HCT 23.4* < > 22.5* 21.7* 20.5* MCV 83.6 < > 83.3 83.1 83.3 MCHC 35.5 < > 36.0 36.4 35.1 RDW 36.4 < > 35.2 34.8* 35.3 PLT 20* < > 23* 15* 10* NEUTROPHILCO 0.00* -- 0.00* 0.01* -- LYMPHSABS 0.16* -- 0.22* 0.21* -- MONOCYTECO 0.01* -- 0.15 0.17 -- EOSCO 0.00 -- 0.00 0.00 -- BASOPHILCO 0.00 -- 0.00 0.00 -- < > = values in this interval not displayed. I was present and rounded today with the NPP, Kary Tracey. I have independently exa mined and assessed the patient. I have personally interviewed Mr. Kelly, reviewed th e vitals, history/last 24 hour events and the labs/studies for today. I agree with all the N PP's findings of note. I agree with the NPP'sassessment and stated plan of care. See p ro note documented by the NPP for details of relevant issues and care plan for today. SEKOU BLANCHARD MD [facility] aSanam connor MD - 1 09/03/2014 10:43 AM PSTTransfusion Medicine: Transfusion Reaction Resident Note Reason for Consult: Concern for transfusion reaction Assessment: 1) Transfusion reaction: Mild allergic transfusion reaction Recommendation: 1) Continue to transfuse as deemed medically necessary 2) Pre-treat with benedryl as needed 3) Please call the blood bank with any other questions or concerns. Transfusion Medicine Resident Contacted at 1040 by the blood bank Background: Khurram Kelly is a 24 y.o. Male with AML here for workup and initi al treatment. At 0735 on 07/03/2015, he began receiving a unit of RBCs, and at 0817, hives on the hip and thigh were noted. He did have an itchy rash prior to receiving blood product s, but not hives. He did not have any shortness of breath, wheezing, change in vital signs, or any other symptoms. The transfusion was stopped (~30-50 ml given), and benedryl was adm inistered. The symptoms have since gone away. He had received a unit of platelets immediat zuhair before the RBCs. Objective: Pre Transfusion Post Transfusion Temperature 36.5 36.2 Pulse 71 83 Blood Pressure 120/75 123/69 Clerical check shows no discrepancy MAGALY (direct Claire test) is negative Blood received shows no hemolysis Sanam Haro MD, Resident Department of Pathology and Laboratory Medicine ao, Thaddeus Short, DO,P hD - 07/02/2015 12:13 PM PST 07/02/2015 Hematologic Malignancies/Blood and marrow Transplant Attending Note Brief assessment/plan: Pt is a 24 year old male with AML admitted on 05/26/2015 for work-up and initial treatment. Hospital course has been complicated by refractory disease at day 14 evaluation after 7+3, proceeded to HAM. Also has ongoing parotiditis but overall improving. Had some folliculitis on his shins that he scratched and excoriated. Count recovery could b e in progress but on early side. Candidate for early discharge if WBC rises incrementally fo r 2 days in a row and neutrophil count is rising as well. A little anxiety and depression wi . Increased creatinine for unclear reasons despite excellent oral intake and uri ne output. Will challenge with fluid bolus and reevaluate cause for slowly rising Cr. Subjective/Objective: Feels well. A little anxious and down about holidays and being here. No new issues otherwise. Exam shows healing skin lesions otherwise unremarkable. I am managing the following issues: Principal Problem: Acute myeloid leukemia (AML), M4 (HCC) Active Problems: Immunocompromised state (HCC) Electrolyte abnormality Pancytopenia due to chemotherapy (HCC) Parotiditis Pain of cheek Rash and nonspecific skin eruption Folliculitis Renal insufficiency I rounded today, 07/02/2015, in conjunction with the Advanced Practice Provider. I saw the patient, reviewed the history and relevant studies and developed an assessment and plan. Ple ase refer to the ESTHELA's note dated today for additional details on the specific plan and orde rs for today. Thaddeus Rios DO, PhD (cell phone [phone]) Attending physician s total time is 35 minutes, >50% spent counseling and coordination of care. Today, as part of my counseling and coordination of care, I reviewed data, reviewed today's plan, and discussed renal insufficiency work up and hydration plan. [facility] DEPARTMENT: [phone] - [facility] Place of Service: - Inpatient Date of Service: 07/02/2015 Modifiers: None Suggested CPT: 83575 - Subsequent, Detailed/High complex 35 min ######################################################### Vitals: Systolic (24hrs), Av mmHg, Min:113 mmHg, Max:135 mmHg Diastolic (24hrs), Av mmHg, Min:62 mmHg, Max:80 mmHg Pulse Av.4 Min: 66 Max: 93 Temp Av.8 C (98.3 F) Min: 36.5 C (97.7 F) Max: 37.3 C (99.1 F) Resp Av.4 Min: 16 Max: 18 SpO2 Av.2 % Min: 99 % Max: 100 % Intake/Output Summary (Last 24 hours) at 07/02/15 1213 Last data filed at 07/02/15 0900 Gross per 24 hour Intake 3700 ml Output 4500 ml Net -800 ml Current medications: Scheduled Medications Medication Dose Route Frequency Last Rate acyclovir (ZOVIRAX) tablet 800 mg 800 mg oral DAILY levofloxacin (LEVAQUIN) tablet 500 mg 500 mg oral DAILY posaconazole DR (NOXAFIL) tablet 300 mg 300 mg oral DAILY Allergies: Allergies Allergen Reactions Chlorhexidine Towelette Rash PAVAN cloths Laboratory or other studies: Recent Labs 06/29/15 2310 07/01/15 0008 07/01/15 2357 WBC 0.28* 0.37* 0.39* HB 8.3* 8.1* 7.9* HCT 23.3* 22.5* 21.7* PLT 10* 23* 15* NEUTROPERC 0.0* 0.0* 2.6* LYMPHPERC -- 59.5* 53.8* MONOPERC -- 40.5* 43.6* BASOPERC -- 0.0 0.0 EOSPERC -- 0.0* 0.0* Recent Labs 06/29/150 07/01/15 0008 07/01/15 2357 NA 138 136 136 K 4.7 4.4 4.2 CL 104 104 105 BICARB 28 24 25 BUN 12 16 17 CR 1.12 1.18 1.35* CA 9.0 9.0 8.9 MG 2.1 1.9 1.8 PO4 4.7 4.2 4.2 AST 23 22 22 ALT 34 38 33 TBILI 0.4 0.4 0.4 AP 75 79 81 ALB 3.8 3.9 3.8 TP 7.1 7.3 6.9 CULTURE RESULT (no units) Date Value 06/07/2015 Final Report:No Bacteria or Yeast isolated at 5 days. Lab Results Component Value Date APTT 33.7 06/13/2015 FIBRINOGEN 201 06/13/2015 Femi Dean, PLANE CAPTAIN - 07/02/2015 10:11 AM PSTFormatting of this note might be different from the orig inal. Daily NPP Note - Chemotherapy [facility] Attending: Thaddeus Rios MD [facility] physician: Dr. Yari Garcia. PCP: Pending Pcp ADDITION Date of Admission: 05/26/2015 Hematologic Malignancy: AML Reason for admission: Work-up and Induction Chemotherapy 24 Hour Events/Current Daily Plan: -AML: Adm for w/u and induction with 3+7. Day 14 bmbx with residual disease (50-60% cellula rity with 50% blasts), reinduced with HAM and now waiting for count recovery. -Pancytopenia d/t disease and chemo: Now with rising WBC daily, ANC 10 today. Standard solorzano sfusion parameters, no transfusions x2 days (last PPK 06/30, last RBCs 06/27) -Bilateral Parotitis, likely d/t Cytarabine per ENT and s/p Zosyn + Vanco on 2 separate occ asions: Nearly resolved. Switch Chlorhexidine s/s to PRN. Continue warm compresses, pain con trol, PO hydration. -Contact Dermatitis d/t PAVAN wipes (first noted 06/27): Improving. Continues Eucerin. Benad ryl PRN. -Lytes: WNL. Standard electrolyte repletion parameters. No replacements required today. -Situational Anxiety, not relieved with Ativan. Switched to Xanax 0.5 mg TID PRN 07/01 -Insomnia: Controlled and wants to try Zyprexa PRN, switched from scheduled qhs today -Rising sCr, unclear etiology (first noted 06/24): sCr 1.35 today. PO intake 3.8L yesterday , but UOP 4.8L. Obtain uric acid, UA with Cx, urine protein, eosinophils, and creatinine. Gi ve 1L NS bolus after urine samples sent. -Dispo: Possible early DC on Sun pending counts. Tentatively plan for recovery BMBx on and f/u with Dr. Garcia on 07/15/15 (schedulers working on overbook). Subjective: Feeling well overall, but admits to more anxiety after his left and thinki ng about being away from his family for [place]. Objective: Last Vitals: BP 125/64 | Pulse 74 | Temp 36.8 C (98.2 F) | RR 16 | Ht 1.9 m (6' 2.8") | Wt 82.192 kg (181 lb 3.2 oz) | SpO2 99% | BMI 22.77 kg/(m^2) 24 Hour Vital Min/Max: Systolic (24hrs), Av mmHg, Min:113 mmHg, Max:135 mmHg Diastolic (24hrs), Av mmHg, Min:62 mmHg, Max:88 mmHg Pulse Min: 66 Max: 93 Temp Min: 36.5 C (97.7 F) Max: 37.3 C (99.1 F) Resp Min: 16 Max: 18 SpO2 Min: 99 % Max: 100 % Intake/Output Summary (Last 24 hours) at 07/02/15 1011 Last data filed at 07/02/15 0900 Gross per 24 hour Intake 4200 ml Output 4500 ml Net -300 ml Physical Exam: General: This is a male in no acute distress. Sitting up at edge of bed. HEENT: PERRL. Sclerae anicteric. Mucosa pink and moist. Skin: Minimal folliculitis rash on arms and legs. Chest: Lungs clear to auscultation bilat. CV: RRR, no murmurs. Abdomen: S/NT/ND with NABS. No HSM appreciated. Extremities: Pulses strong and equal bilaterally. No c/c/e. NeuroPsych: Alert and oriented x 3. Grossly nonfocal exam. CVC: PICC line dressing dry and intact Laboratory Results: Recent Labs 06/29/15 2310 07/01/15 0008 07/01/15 2357 NA 138 136 136 K 4.7 4.4 4.2 CL 104 104 105 BICARB 28 24 25 BUN 12 16 17 CR 1.12 1.18 1.35* GLU 101* 108* 117* CA 9.0 9.0 8.9 AST 23 22 22 ALT 34 38 33 AP 75 79 81 TBILI 0.4 0.4 0.4 TP 7.1 7.3 6.9 ALB 3.8 3.9 3.8 Recent Labs 06/24/15 2300 06/29/15 2310 07/01/15 0008 07/01/15 2357 WBC 0.17* < > 0.28* 0.37* 0.39* RBC 2.80* < > 2.77* 2.70* 2.61* HB 8.3* < > 8.3* 8.1* 7.9* HCT 23.4* < > 23.3* 22.5* 21.7* PLT 20* < > 10* 23* 15* NEUTROPERC 0.0* -- 0.0* 0.0* 2.6* LYMPHPERC 94.1* -- -- 59.5* 53.8* MONOPERC 5.9 -- -- 40.5* 43.6* BASOPERC 0.0 -- -- 0.0 0.0 EOSPERC 0.0* -- -- 0.0* 0.0* < > = values in this interval not displayed. Meds: Reviewed on rounds, see current MAR for medication list SUMMARY OF PATIENT'S HOSPITALIZATION History of Present Illness: Khurram Kelly is 24 yo M with pmhx of pericarditis and new diagnosis of acute leukemia admitted for induction and management. Had been in usual state of [facility] 03/13/15 (the night of his wedding) at which time he noted bilateral ankle pain and swellin g. This persisted and worsened intermittently, notably when hunting on 03/19/15. Then after w ork, couldn't walk well 2/2 pain and inevitably couldn't bear weight on his feet. Presented to the ED and was diagnosed with cellulitis of the RLE, given antibiotics. During evaluation patient also noted to have pancytopenia with subsequent white blood cell differential ident ifying a predominance of early appearing monocytes. On 04/18/15 began to have pleuritic anterior chest pains, low-grade fevers occasionally up to 101. Also had onset of swelling and erythema over his left ankle, seen in the [facility]'s emergency room on 04/19/15. CT angiogram negative for blood clot. CBC demonstrated whi te count 15,300 with 59% monocytes, 3% immature monocytes, hemoglobin 11.8, platelets 146,00 0. He was apparently treated with antibiotics, also colchicine and anti-inflammatory agents - for possible dx of pericarditis - with complete resolution of his symptoms. After he finished the antibiotics and other medicines, the symptoms came back, repeat trip to the emergency room on 04/26/15. Repeat CT angiogram was again negative for pulmonary embo carmen or other abnormality. CBC showed white count 14,300 with 48% monocytes, 4% immature mono cytes, hemoglobin 12.8, platelets 180,000. He was again treated with the anti-inflammatory r maye colchicine, no antibiotics, again with complete resolution of symptoms. Was referred to Oncology and at that time had pleuritic anterior chest pain, low-grade feve rs. CBC demonstrated white count 17,600 with 66% monocytes, hemoglobin 11.8, platelets 115,0 00, did have 3.5% basophils. Review of his peripheral smear by pathology revealed many immat ure monocytes but no overt blasts. 05/19/15 had bone marrow bx confirming AML (see below) as well as flow cytometry. Hospitalization History: Hematology: #AML Pertinent Diagnostics: -BM Bx done at OSH 05/19/15, slides reviewed by [facility] and c/w Acute Myelomonocytic Leukemia in a 90% cellular marrow. -Results: 86% of blast equivalents, comprised of myeloblasts, monoblasts and promonocytes. Concurrent flow cytometry detected 23% myeloid blasts and 60% immature monocytic cells suppo rting this diagnosis. -Cytogenetics: Normal male karyotype -GeneTrails from OSH: triple negative for CEBPA , NPM1, FLT3 -Peripheral blood flow 05/27/15: Acute Myelomonocytic Leukemia (47% blasts and 30% monocyte s) -Cytogenetics: normal male karyotype -GeneTrails: NRAS mutation (40%) -Day 14 BM Bx 06/09/15: Residual AML with 50-60% marrow cellularity and approximately 50% bl asts -Plan to send telomere length and chromosomal breakage when he recovers Treatment: -Chemotherapy regimen: standard induction with 3+7 started 05/27/15 -Idarubicin 12 mg/m2 daily x 3 days -Cytarabine 100 mg/m2 CI IV daily x 7 days. -Re-induction chemotherapy regimen: [facility] started 06/11/15 -Cytarabine 3000 mg/m2 over 3 hours q 12 hr x 6 doses total, day 1-3 -Pred Forte Eye drops (1%) 2 drops to each eye q 6 hours from day 1 through day 6. First d ose of Pred eye drops to be 1/2 hr before first Cytarabine dose on day 1. -Mitoxantrone 10mg/m2/day over 30 minutes IV on day 4-6 -Chemo Day: 22 (HAM) / 37 (3+7) Patient is a candidate for transplant based on Dx and prognostic feature with persistent disease day 14. Request insurance approval for typing. HLA typing sent 05/27/15. He has tw o brothers for potential donors. #Pancytopenia d/t treatment and disease - Now with WBC recovery -Antimircobials as below -See supportive care #Supportive Care: Growth factor: Not indicated with this chemotherapy regimen. Labs: Continue to check CBC with diff daily Transfusion parameters: -Transfuse PRBCs for HCT <21% -Transfuse PPH for platelet count <10,000 or sooner PRN s/s bleeding. HEENT: #Bilateral Parotitis, likely d/t Cytarabine per ENT - Improving. L Parotitis (first noted 08/07) and improved s/p Zosyn (06/07-06/13) + Vanco (06/09-06/12); then occurred bilatreally (n oted 06/16) s/p Zosyn (06/17-06/22) + Vancomycin (06/17-06/18) -Conservative management with warm compresses, sialogogues, pain control and hydration -Oxycodone PRN -Chlorhexidine s/s 15 mL q 6 hrs PRN Cardiovascular: Prechemotherapy Echo results on 05/18: EF 60-65 %. Left ventricular diastol ic function is normal. #?Hx of Pericarditis s/p full course of Colchicine - Resolved. Presented to OSH on several visits to ED with CP. Echo done at OSH x 2 both normal, no noted pericarditis or effusions. Pulmonary: #Current Smoker -Smoking cessation counseling offered -Nicotine gum PRN -Consider Nicotine patch if symptoms not controlled GI: #CINV - Resolved. No effect with Scop patch -Antiemetics PRN /Renal: #Rising sCr, unclear etiology (first noted 06/24) - Worsened despite very good PO fluid int lola -F/U (07/02) uric acid -F/U (07/02) UA with Cx, urine protein, eosinophils, and creatinine -1L NS bolus PRN; last given 07/02 Neurology: #Situational Anxiety - Not relieved with Ativan -Xanax 0.5 mg TID PRN, switched from Ativan on 07/01 #Insomnia - Controlled -Zyprexa 10mg qhs PRN, switched from scheduled qhs on 07/02 Dermatology: #Contact Dermatitis d/t CHG wipes (noted 06/27 on back of hands, arms, legs) - Improving -Eucerin daily -Benadryl PRN #Superficial Dermatitis, Logan Calves (noted ~06/07 and Bx confirmed 06/09) - Resolved -F/U (06/09) R leg Cxs: NTD Reproductive: #Sperm Preservation - Completed 05/27/15 prior to chemotherapy Infectious Disease: No active issues #Prophylaxis: Bacterial: Levaquin Fungal: Posaconazole, trough level adequate 06/28 @ 0.9 Viral: Acyclovir PCP: Not indicated with this chemo regimen Fluid/Nutrition/Lytes: #Nutrition: Regular diet, No Kezia's yogurt or Kefir #Fluid: 1L NS PRN for PO intake <2L/day by 2200 #Lytes: Continue to check chemistries daily. Replace per supportive care protocol. Disposition: Will remain hospitalized until count recovery, may be eligible for early disc harge. Tentatively plan for recovery BMBx on 07/13/15 and f/u with Dr. Garcia on 07/15/15. ORLY Bianchi [address] Mailcode: [facility] [place] [address] Thaddeus Mullen DO,PhD - 07/01/2015 12:04 PM PSTFormatting of this note might be different from the orig inal. 07/01/2015 Hematologic Malignancies/Blood and marrow Transplant Attending Note Brief assessment/plan: Pt is a 24 year old male with AML admitted on 05/26/2015 for work-up and initial treatment. Hospital course has been complicated by refractory disease at day 14 evaluation after 7+3, proceeded to [facility]. Also has ongoing parotiditis but overall improving. Had some folliculitis on his shins that he scratched and excoriated. Count recovery could b e in progress but on early side. Candidate for early discharge if WBC rises incrementally fo r 2 days in around and neutrophil count is rising as well. Subjective/Objective: Feels well. No new issues. Had some submandibular node tenderness yes terday but this quickly subsided. Exam shows healing skin lesions otherwise unremarkable. I am managing the following issues: Principal Problem: Acute myeloid leukemia (AML), M4 (HCC) Active Problems: Immunocompromised state (HCC) Electrolyte abnormality Pancytopenia due to chemotherapy (HCC) Parotiditis Pain of cheek Rash and nonspecific skin eruption Folliculitis I rounded today, 07/01/2015, in conjunction with the Advanced Practice Provider. I saw the patient, reviewed the history and relevant studies and developed an assessment and plan. Ple ase refer to the ESTHELA's note dated today for additional details on the specific plan and orde rs for today. Thaddeus Rios DO, PhD (cell phone [phone]) Attending physician s total time is 25 minutes, >50% spent counseling and coordination of care. Today, as part of my counseling and coordination of care, I reviewed data, reviewed today's plan, and discussed counts today and plan. [facility] DEPARTMENT: [id number]- [facility] Place of Service:- Inpatient Date of Service: 07/01/2015 Suggested CPT:65195 - Subsequent, Exp Prob Foc/Mod Complex 25 min ######################################################### Vitals: Systolic (24hrs), Av mmHg, Min:109 mmHg, Max:137 mmHg Diastolic (24hrs), Av mmHg, Min:54 mmHg, Max:88 mmHg Pulse Av.3 Min: 65 Max: 103 Temp Av.7 C (98.1 F) Min: 36.4 C (97.5 F) Max: 36.9 C (98.4 F) Resp Av.3 Min: 16 Max: 18 SpO2 Av.1 % Min: 98 % Max: 100 % Intake/Output Summary (Last 24 hours) at 07/01/15 1204 Last data filed at 07/01/15 1200 Gross per 24 hour Intake 5610 ml Output 3100 ml Net 2510 ml Current medications: Scheduled Medications Medication Dose Route Frequency Last Rate acyclovir (ZOVIRAX) tablet 800 mg 800 mg oral DAILY chlorhexidine (PERIDEX) mouthwash 15 mL 15 mL oral Q6H levofloxacin (LEVAQUIN) tablet 500 mg 500 mg oral DAILY OLANZapine (ZYPREXA) tablet 10 mg [address] HS [address] (NOXAFIL) tablet 300 mg 300 mg oral DAILY Allergies: Allergies Allergen Reactions Chlorhexidine Towelette Rash PAVAN cloths Laboratory or other studies: Recent Labs 06/28/15231406/29/15230907/01/15 0008 WBC 0.25* 0.28* 0.37* HB 8.7* 8.3* 8.1* HCT 24.7* 23.3* 22.5* PLT 15* 10* 23* NEUTROPERC -- 0.0* 0.0* LYMPHPERC -- -- 59.5* MONOPERC -- -- 40.5* BASOPERC -- -- 0.0 EOSPERC -- -- 0.0* Recent Labs 06/28/15231406/29/15230907/01/15 0008 NA 137 138 136 K 4.4 4.7 4.4 CL 104 104 104 BICARB 27 28 24 BUN 12 12 16 CR 1.05 1.12 1.18 CA 9.0 9.0 9.0 MG 2.1 2.1 1.9 PO4 4.4 4.7 4.2 AST 28 23 22 ALT 35 34 38 TBILI 0.5 0.4 0.4 AP 78 75 79 ALB 4.1 3.8 3.9 TP 7.7 7.1 7.3 CULTURE RESULT (no units) Date Value 06/07/2015 Final Report:No Bacteria or Yeast isolated at 5 days. Lab Results Component Value Date APTT 33.7 06/13/2015 FIBRINOGEN 201 06/13/2015 emi Lundy, PLANE CAPTAIN - 07/01/2015 11:05 AM PSTFormatting of this note might be different from the orig inal. Daily NPP Note - Chemotherapy Admit [facility] for Hematologic Malignancies Attending: Thaddeus Rios MD [facility] physician: Dr. Yari Garcia. PCP: Pending Pcp ADDITION Date of Admission: 05/26/2015 Hematologic Malignancy: AML Reason for admission: Work-up and Induction Chemotherapy 24 Hour Events/Current Daily Plan: -AML: Adm for w/u and induction with 3+7. Day 14 bmbx with residual disease (50-60% cellula rity with 50% blasts), reinduced with HAM. -Pancytopenia d/t disease and chemo: Now with WBC recovery. Standard transfusion parameters , no transfusions required today. -Bilateral Parotitis, likely d/t Cytarabine per ENT and s/p Zosyn + Vanco on 2 separate occ asions: Improving, although briefly had some logan submandibular pain yesterday. Continue warm compresses, pain control, PO hydration, Chlorhexidine s/s -Contact Dermatitis d/t PAVAN wipes (first noted 06/27): Improving. Continues Eucerin. Benad ryl PRN. -Lytes: WNL. Standard electrolyte repletion parameters. No replacements required today. -Anxiety - Not relieved with Ativan. Switch to Xanax 0.5 mg TID PRN -Dispo: Possible early DC on Sun pending counts. Tentatively plan for recovery BMBx on and f/u with Dr. Garcia on 07/15/15. Subjective: Feeling well overall, just occasionally itchy. Also had mild pain under his jaw on both sides yesterday, but it's now gone. Objective: Last Vitals: BP 117/68 | Pulse 65 | Temp 36.8 C (98.2 F) | RR 18 | Ht 1.9 m (6' 2.8") | Wt 81.33 kg (179 lb 4.8 oz) | SpO2 100% | BMI 22.53 kg/(m^2) 24 Hour Vital Min/Max: Systolic (24hrs), Av mmHg, Min:109 mmHg, Max:137 mmHg Diastolic (24hrs), Av mmHg, Min:54 mmHg, Max:82 mmHg Pulse Min: 65 Max: 103 Temp Min: 36.4 C (97.5 F) Max: 36.9 C (98.4 F) Resp Min: 16 Max: 18 SpO2 Min: 98 % Max: 100 % Intake/Output Summary (Last 24 hours) at 07/01/15 1105 Last data filed at 07/01/15 1000 Gross per 24 hour Intake 5110 ml Output 3100 ml Net 2010 ml Physical Exam: General: This is a male in no acute distress. Sitting upright at edge of bed. HEENT: PERRL. Sclerae anicteric. Mucosa pink and moist. Skin: Minimal folliculitis rash on arms and legs. Chest: Lungs clear to auscultation bilat. CV: RRR, no murmurs. Abdomen: S/NT/ND with NABS. No HSM appreciated. Extremities: Pulses strong and equal bilaterally. No c/c/e. NeuroPsych: Alert and oriented x 3. Grossly nonfocal exam. CVC: PICC line dressing dry and intact Laboratory Results: Recent Labs 06/28/15 2315 06/29/15 2310 07/01/15 0008 NA 137 138 136 K 4.4 4.7 4.4 CL 104 104 104 BICARB 27 28 24 BUN 12 12 16 CR 1.05 1.12 1.18 GLU 93 101* 108* CA 9.0 9.0 9.0 AST 28 23 22 ALT 35 34 38 AP 78 75 79 TBILI 0.5 0.4 0.4 TP 7.7 7.1 7.3 ALB 4.1 3.8 3.9 Recent Labs 06/24/15 0003 06/24/15 2300 06/28/15 2315 06/29/15 2310 07/01/15 0008 WBC 0.16* 0.17* < > 0.25* 0.28* 0.37* RBC 2.47* 2.80* < > 2.92* 2.77* 2.70* HB 7.5* 8.3* < > 8.7* 8.3* 8.1* HCT 20.7* 23.4* < > 24.7* 23.3* 22.5* PLT 27* 20* < > 15* 10* 23* NEUTROPERC 0.0* 0.0* -- -- 0.0* 0.0* LYMPHPERC 93.7* 94.1* -- -- -- 59.5* MONOPERC 6.3 5.9 -- -- -- 40.5* BASOPERC 0.0 0.0 -- -- -- 0.0 EOSPERC 0.0* 0.0* -- -- -- 0.0* < > = values in this interval not displayed. Meds: Reviewed on rounds, see current MAR for medication list SUMMARY OF PATIENT'S HOSPITALIZATION History of Present Illness: Khurram Gambleliat is 24 yo M with pmhx of pericarditis and new diagnosis of acute leukemia admitted for induction and management. Had been in usual state of [facility] 03/13/15 (the night of his wedding) at which time he noted bilateral ankle pain and swellin g. This persisted and worsened intermittently, notably when hunting on 03/19/15. Then after w ork, couldn't walk well 2/2 pain and inevitably couldn't bear weight on his feet. Presented to the ED and was diagnosed with cellulitis of the RLE, given antibiotics. During evaluation patient also noted to have pancytopenia with subsequent white blood cell differential ident ifying a predominance of early appearing monocytes. On 04/18/15 began to have pleuritic anterior chest pains, low-grade fevers occasionally up to 101. Also had onset of swelling and erythema over his left ankle, seen in the [facility]' emergency room on 04/19/15. CT angiogram negative for blood clot. CBC demonstrated whi te count 15,300 with 59% monocytes, 3% immature monocytes, hemoglobin 11.8, platelets 146,00 0. He was apparently treated with antibiotics, also colchicine and anti-inflammatory agents - for possible dx of pericarditis - with complete resolution of his symptoms. After he finished the antibiotics and other medicines, the symptoms came back, repeat trip to the emergency room on 04/26/15. Repeat CT angiogram was again negative for pulmonary embo carmen or other abnormality. CBC showed white count 14,300 with 48% monocytes, 4% immature mono cytes, hemoglobin 12.8, platelets 180,000. He was again treated with the anti-inflammatory r maye colchicine, no antibiotics, again with complete resolution of symptoms. Was referred to Oncology and at that time had pleuritic anterior chest pain, low-grade feve rs. CBC demonstrated white count 17,600 with 66% monocytes, hemoglobin 11.8, platelets 115,0 00, did have 3.5% basophils. Review of his peripheral smear by pathology revealed many immat ure monocytes but no overt blasts. 05/19/15 had bone marrow bx confirming AML (see below) as well as flow cytometry. 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 -Results: 86% of blast equivalents, comprised of myeloblasts, monoblasts and promonocytes. Concurrent flow cytometry detected 23% myeloid blasts and 60% immature monocytic cells suppo rting this diagnosis. -Cytogenetics: Normal male karyotype -GeneTrails from OSH: triple negative for CEBPA , NPM1, FLT3 -Peripheral blood flow 05/27/15: Acute Myelomonocytic Leukemia (47% blasts and 30% monocyte s) -Cytogenetics: normal male karyotype -GeneTrails: NRAS mutation (40%) -Day 14 BM Bx 06/09/15: Residual AML with 50-60% marrow cellularity and approximately 50% bl asts -Plan to send telomere length and chromosomal breakage when he recovers Treatment: -Chemotherapy regimen: standard induction with 3+7 started 05/27/15 -Idarubicin 12 mg/m2 daily x 3 days -Cytarabine 100 mg/m2 CI IV daily x 7 days. -Re-induction chemotherapy regimen: [facility] started 06/11/15 -Cytarabine 3000 mg/m2 over 3 hours q 12 hr x 6 doses total, day 1-3 -Pred Forte Eye drops (1%) 2 drops to each eye q 6 hours from day 1 through day 6. First d ose of Pred eye drops to be 1/2 hr before first Cytarabine dose on day 1. -Mitoxantrone 10mg/m2/day over 30 minutes IV on day 4-6 -Chemo Day: 21 (HAM) / 36 (3+7) Patient is a candidate for transplant based on Dx and prognostic feature with persistent disease day 14. Request insurance approval for typing. HLA typing sent 05/27/15. He has tw o brothers for potential donors. #Pancytopenia d/t treatment and disease - Now with WBC recovery -Antimircobials as below -See supportive care #Supportive Care: Growth factor: Not indicated with this chemotherapy regimen. Labs: Continue to check CBC with diff daily Transfusion parameters: -Transfuse PRBCs for HCT <21% -Transfuse PPH for platelet count <10,000 or sooner PRN s/s bleeding. HEENT: #Bilateral Parotitis, likely d/t Cytarabine per ENT - Improving. L Parotitis (first noted 08/07) and improved s/p Zosyn (06/07-06/13) + Vanco (06/09-06/12); then occurred bilatreally (n oted 06/16) s/p Zosyn (06/17-06/22) + Vancomycin (06/17-06/18) -Conservative management with warm compresses, sialogogues, pain control and hydration -Oxycodone PRN -Chlorhexidine s/s 15 mL q 6 hrs Cardiovascular: Prechemotherapy Echo results on 05/18: EF 60-65 %. Left ventricular diastol ic function is normal. #?Hx of Pericarditis s/p full course of Colchicine - Resolved. Presented to OSH on several visits to ED with CP. Echo done at OSH x 2 both normal, no noted pericarditis or effusions. Pulmonary: #Current Smoker -Smoking cessation counseling offered -Nicotine gum PRN -Consider Nicotine patch if symptoms not controlled GI: #CINV - Resolved. No effect with Scop patch -Antiemetics PRN /Renal: No acute issues Neurology: #Anxiety - Not relieved with Ativan -Xanax 0.5 mg TID PRN, switched from Ativan on 07/01 #Insomnia - Controlled -Zyprexa 10mg qhs Dermatology: #Contact Dermatitis d/t CHG wipes (noted 06/27 on back of hands, arms, legs) - Improving -Eucerin daily -Benadryl PRN #Superficial Dermatitis, Logan Calves (noted ~06/07 and Bx confirmed 06/09) - Resolved -F/U (06/09) R leg Cxs: NTD Reproductive: #Sperm Preservation - Completed 05/27/15 prior to chemotherapy Infectious Disease: No active issues #Prophylaxis: Bacterial: Levaquin Fungal: Posaconazole, level adequate 06/08 at 1.1. Level 06/28- PENDING. Viral: Acyclovir PCP: Not indicated with this chemo regimen Fluid/Nutrition/Lytes: #Nutrition: Regular diet, No Kezia's yogurt or Kefir #Fluid: 1L NS PRN for PO intake <2L/day by 2200 #Lytes: Continue to check chemistries daily. Replace per supportive care protocol. Disposition: Will remain hospitalized until count recovery, may be eligible for early disc harge. Tentatively plan for recovery BMBx on 07/13/15 and f/u with Dr. Garcia on 07/15/15. ORLY Bianchi [facility] [address] [facility] Mailcode: [id number] [place] [address] russell, ORLY Farah - 06/30/2015 2:17 PM PST Daily NPP Note - Chemotherapy Admit [facility] Attending: Thaddeus Rios MD [facility] physician: Dr. Yari Garcia. PCP: Pending Pcp ADDITION Date of Admission: 05/26/2015 Hematologic Malignancy: AML Reason for admission: Work-up and Induction Chemotherapy 24 Hour Events/Current Daily Plan: -AML: Adm for w/u and induction with 3+7. Day 14 bmbx with residual disease (50-60% cellula rity with 50% blasts), reinduced with HAM. -Pancytopenia d/t disease and chemo: Transfused 1 PPK today. Standard transfusion parameter s. -Bilateral Parotitis, likely d/t Cytarabine per ENT and s/p Zosyn + Vanco: Improving. Maryann nue warm compresses, pain control, PO hydration, Chlorhexidine s/s -Contact Dermatitis d/t PAVAN wipes (first noted 06/27): Improving. Continues Eucerin. Benad ryl PRN. -Lytes: WNL. Standard electrolyte repletion parameters. No replacements required today. Subjective: Feeling well overall, just occasionally itchy. Objective: Last Vitals: BP 137/80 | Pulse 103 | Temp 36.6 C (97.9 F) | RR 16 | Ht 1.9 m (6' 2.8") | Wt 81.33 kg (179 lb 4.8 oz) | SpO2 98% | BMI 22.53 kg/(m^2) 24 Hour Vital Min/Max: Systolic (24hrs), Av mmHg, Min:105 mmHg, Max:137 mmHg Diastolic (24hrs), Av mmHg, Min:59 mmHg, Max:80 mmHg Pulse Min: 61 Max: 103 Temp Min: 36.4 C (97.5 F) Max: 36.9 C (98.4 F) Resp Min: 16 Max: 16 SpO2 Min: 98 % Max: 100 % Intake/Output Summary (Last 24 hours) at 06/30/15 1417 Last data filed at 06/30/15 1300 Gross per 24 hour Intake 3320 ml Output 3430 ml Net -110 ml Physical Exam: General: This is a male in no acute distress. Sitting up at edge of bed. HEENT: PERRL. Sclerae anicteric. Mucosa pink and moist. Mild edema on left cheek. Skin: Minimal folliculitis rash on arms and legs. Chest: Lungs clear to auscultation bilat. CV: RRR, no murmurs. Abdomen: S/NT/ND with NABS. No HSM appreciated. Extremities: Pulses strong and equal bilaterally. No c/c/e. NeuroPsych: Alert and oriented x 3. Grossly nonfocal exam. CVC: PICC line dressing dry and intact Laboratory Results: Recent Labs 06/27/15 2300 06/28/15 2315 06/29/15 231 NA 139 137 138 K 3.9 4.4 4.7 CL 106 104 104 BICARB 26 27 28 BUN 11 12 12 CR 1.02 1.05 1.12 GLU 135* 93 101* CA 8.9 9.0 9.0 AST 22 28 23 ALT 32 35 34 AP 68 78 75 TBILI 0.5 0.5 0.4 TP 7.0 7.7 7.1 ALB 3.7 4.1 3.8 Recent Labs 06/22/15 2359 06/24/15 0003 06/24/15 2300 06/27/15 2300 06/28/15 2315 06/29/15 2310 WBC 0.11* 0.16* 0.17* < > 0.20* 0.25* 0.28* RBC 2.57* 2.47* 2.80* < > 2.79* 2.92* 2.77* HB 7.8* 7.5* 8.3* < > 8.4* 8.7* 8.3* HCT 21.4* 20.7* 23.4* < > 23.3* 24.7* 23.3* PLT 15* 27* 20* < > 10* 15* 10* NEUTROPERC 0.0* 0.0* 0.0* -- -- -- 0.0* LYMPHPERC 100.0* 93.7* 94.1* -- -- -- -- MONOPERC 0.0* 6.3 5.9 -- -- -- -- BASOPERC 0.0 0.0 0.0 -- -- -- -- EOSPERC 0.0* 0.0* 0.0* -- -- -- -- < > = values in this interval not displayed. Meds: Reviewed on rounds, see current MAR for medication list SUMMARY OF PATIENT'S HOSPITALIZATION History of Present Illness: Khurram Kelly is 24 yo M with pmhx of pericarditis and new diagnosis of acute leukemia admitted for induction and management. Had been in usual state of [facility] 03/13/15 (the night of his wedding) at which time he noted bilateral ankle pain and swellin g. This persisted and worsened intermittently, notably when hunting on 03/19/15. Then after w ork, couldn't walk well 2/2 pain and inevitably couldn't bear weight on his feet. Presented to the ED and was diagnosed with cellulitis of the RLE, given antibiotics. During evaluation patient also noted to have pancytopenia with subsequent white blood cell differential ident ifying a predominance of early appearing monocytes. On 04/18/15 began to have pleuritic anterior chest pains, low-grade fevers occasionally up to 101. Also had onset of swelling and erythema over his left ankle, seen in the [facility]'s emergency room on 04/19/15. CT angiogram negative for blood clot. CBC demonstrated whi te count 15,300 with 59% monocytes, 3% immature monocytes, hemoglobin 11.8, platelets 146,00 0. He was apparently treated with antibiotics, also colchicine and anti-inflammatory agents - for possible dx of pericarditis - with complete resolution of his symptoms. After he finished the antibiotics and other medicines, the symptoms came back, repeat trip to the emergency room on 04/26/15. Repeat CT angiogram was again negative for pulmonary embo carmen or other abnormality. CBC showed white count 14,300 with 48% monocytes, 4% immature mono cytes, hemoglobin 12.8, platelets 180,000. He was again treated with the anti-inflammatory r maye colchicine, no antibiotics, again with complete resolution of symptoms. Was referred to Oncology and at that time had pleuritic anterior chest pain, low-grade feve rs. CBC demonstrated white count 17,600 with 66% monocytes, hemoglobin 11.8, platelets 115,0 00, did have 3.5% basophils. Review of his peripheral smear by pathology revealed many immat ure monocytes but no overt blasts. 05/19/15 had bone marrow bx confirming AML (see below) as well as flow cytometry. Hospitalization History: Hematology: #AML Pertinent Diagnostics: -BM Bx done at OSH 05/19/15, slides reviewed by [facility] and c/w Acute Myelomonocytic Leukemia in a 90% cellular marrow. -Results: 86% of blast equivalents, comprised of myeloblasts, monoblasts and promonocytes. Concurrent flow cytometry detected 23% myeloid blasts and 60% immature monocytic cells suppo rting this diagnosis. -Cytogenetics: Normal male karyotype -GeneTrails from OSH: triple negative for CEBPA , NPM1, FLT3 -Peripheral blood flow 05/27/15: Acute Myelomonocytic Leukemia (47% blasts and 30% monocyte s) -Cytogenetics: normal male karyotype -GeneTrails: NRAS mutation (40%) -Day 14 BM Bx 06/09/15: Residual AML with 50-60% marrow cellularity and approximately 50% bl asts -Plan to send telomere length and chromosomal breakage when he recovers Treatment: -Chemotherapy regimen: standard induction with 3+7 started 05/27/15 -Idarubicin 12 mg/m2 daily x 3 days -Cytarabine 100 mg/m2 CI IV daily x 7 days. -Re-induction chemotherapy regimen: HAM started 06/11/15 -Cytarabine 3000 mg/m2 over 3 hours q 12 hr x 6 doses total, day 1-3 -Pred Forte Eye drops (1%) 2 drops to each eye q 6 hours from day 1 through day 6. First d ose of Pred eye drops to be 1/2 hr before first Cytarabine dose on day 1. -Mitoxantrone 10mg/m2/day over 30 minutes IV on day 4-6 -Chemo Day: 20 (HAM) / 35 (3+7) Patient is a candidate for transplant based on Dx and prognostic feature with persistent disease day 14. Request insurance approval for typing. HLA typing sent 05/27/15. He has tw o brothers for potential donors. Dr. Garcia is transplant physician. #Pancytopenia d/t treatment and disease -Antimircobials as below -See supportive care #Supportive Care: Growth factor: Not indicated with this chemotherapy regimen. Labs: Continue to check CBC with diff daily Transfusion parameters: -Transfuse PRBCs for HCT <21% -Transfuse PPH for platelet count <10,000 or sooner PRN s/s bleeding. HEENT: #Bilateral Parotitis, likely d/t Cytarabine per ENT - Improving. L Parotitis (first noted 1 08/07) and improved s/p Zosyn (06/07-06/13) + Vanco (06/09-06/12); then occurred bilatreally (n oted 06/16) s/p Zosyn (06/17-06/22) + Vancomycin (06/17-06/18) -Conservative management with warm compresses, sialogogues, pain control and hydration -Oxycodone PRN -Chlorhexidine s/s 15 mL q 6 hrs Cardiovascular: Prechemotherapy Echo results on 05/18: EF 60-65 %. Left ventricular diastol ic function is normal. #?Hx of Pericarditis s/p full course of Colchicine - Resolved. Presented to OSH on several visits to ED with CP. Echo done at OSH x 2 both normal, no noted pericarditis or effusions. Pulmonary: #Current Smoker -Smoking cessation counseling offered -Nicotine gum PRN -Consider Nicotine patch if symptoms not controlled GI: #CINV - Resolved. No effect with Scop patch -Antiemetics PRN /Renal: No acute issues Neurology: #Insomnia - Controlled -Zyprexa 10mg qhs Dermatology: #Contact Dermatitis d/t CHG wipes (noted 06/27 on back of hands, arms, legs) - Improving -Eucerin daily -Benadryl PRN #Superficial Dermatitis, Logan Calves (noted ~06/07 and Bx confirmed 06/09) - Resolved -F/U (06/09) R leg Cxs: NTD Reproductive: #Sperm Preservation - Completed 05/27/15 prior to chemotherapy Infectious Disease: No active issues #Prophylaxis: Bacterial: Levaquin Fungal: Posaconazole, level adequate 06/08 at 1.1. Level 06/28- PENDING. Viral: Acyclovir PCP: Not indicated with this chemo regimen Fluid/Nutrition/Lytes: #Nutrition: Regular diet, No Kezia's yogurt or Kefir #Fluid: 1L NS PRN for PO intake <2L/day by 2200 #Lytes: Continue to check chemistries daily. Replace per supportive care protocol. Disposition: Will remain hospitalized until count recovery, may be eligible for early disc harge. ORLY Bianchi [facility] [address] [facility] Mailcode: [id number] [place] [address] ao, Thaddeus Short DO,PhD - 06/30/2015 12:56 PM PSTFormatting of this note might be different from the orig inal. 06/30/2015 Hematologic Malignancies/Blood and marrow Transplant Attending Note Brief assessment/plan: Pt is a 24 year old male with AML admitted on 05/26/2015 for work-up and initial treatment. Hospital course has been complicated by refractory disease at day 14 evaluation after 7+3, proceeded to [facility]. Also has ongoing parotiditis but overall improving. Had some folliculitis on his shins that he scratched and excoriated. Count recovery could b e in progress but on early side. Subjective/Objective: Feels well. Itchiness has improved. No new sissues. Exam shows healin g skin lesions otherwise unremarkable. I am managing the following issues: Principal Problem: Acute myeloid leukemia (AML), M4 (HCC) Active Problems: Immunocompromised state (HCC) Electrolyte abnormality Pancytopenia due to chemotherapy (HCC) Parotiditis Pain of cheek Rash and nonspecific skin eruption Folliculitis I rounded today, 06/30/2015, in conjunction with the Advanced Practice Provider. I saw the patient, reviewed the history and relevant studies and developed an assessment and plan. Ple ase refer to the ESTHELA's note dated today for additional details on the specific plan and orde rs for today. Thaddeus Rios DO, PhD (cell phone [phone]) Attending physician s total time is 25 minutes, >50% spent counseling and coordination of care. Today, as part of my counseling and coordination of care, I reviewed data, reviewed today's plan, and discussed early discharge program if he shows signs of active count recove ry. [facility] DEPARTMENT: [id number]- [facility]AC[facility] Place of Service:- Inpatient Date of Service: 06/30/2015 Suggested CPT:33962 - Subsequent, Exp Prob Foc/Mod Complex 25 min ######################################################### Vitals: Systolic (24hrs), Av mmHg, Min:105 mmHg, Max:137 mmHg Diastolic (24hrs), Av mmHg, Min:59 mmHg, Max:80 mmHg Pulse Av Min: 61 Max: 103 Temp Av.7 C (98.1 F) Min: 36.4 C (97.5 F) Max: 36.9 C (98.4 F) Resp Av Min: 16 Max: 16 SpO2 Av.9 % Min: 98 % Max: 100 % Intake/Output Summary (Last 24 hours) at 06/30/15 1256 Last data filed at 06/30/15 1100 Gross per 24 hour Intake 2620 ml Output 4130 ml Net -1510 ml Current medications: Scheduled Medications Medication Dose Route Frequency Last Rate acyclovir (ZOVIRAX) tablet 800 mg 800 mg oral DAILY chlorhexidine (PERIDEX) mouthwash 15 mL 15 mL oral Q6H levofloxacin (LEVAQUIN) tablet 500 mg 500 mg oral DAILY OLANZapine (ZYPREXA) tablet 10 mg [address] HS pos[address] DR (NOXAFIL) tablet 300 mg 300 mg oral DAILY Allergies: No Known Allergies Laboratory or other studies: Recent Labs 06/27/15229906/28/15231406/29/152309 WBC 0.20* 0.25* 0.28* HB 8.4* 8.7* 8.3* HCT 23.3* 24.7* 23.3* PLT 10* 15* 10* NEUTROPERC -- -- 0.0* Recent Labs 06/27/15229906/28/15231406/29/152309 NA 139 137 138 K 3.9 4.4 4.7 CL 106 104 104 BICARB 26 27 28 BUN 11 12 12 CR 1.02 1.05 1.12 CA 8.9 9.0 9.0 MG 2.0 2.1 2.1 PO4 3.6 4.4 4.7 AST 22 28 23 ALT 32 35 34 TBILI 0.5 0.5 0.4 AP 68 78 75 ALB 3.7 4.1 3.8 TP 7.0 7.7 7.1 CULTURE RESULT (no units) Date Value 06/07/2015 Final Report:No Bacteria or Yeast isolated at 5 days. Lab Results Component Value Date APTT 33.7 06/13/2015 FIBRINOGEN 201 06/13/2015 ao, Thaddeus Short DO,PhD - 06/29/2015 2:47 PM PST . 06/29/2015 Hematologic Malignancies/Blood and marrow Transplant Attending Note Brief assessment/plan: Pt is a 24 year old male with AML admitted on 05/26/2015 for work-up and initial treatment. Hospital course has been complicated by refractory disease at day 14 evaluation after 7+3, proceeded to [facility]. Also has ongoing parotiditis but overall improving. Had some folliculitis on his shins that he scratched and excoriated. Count recovery could b e in progress but on early side. Subjective/Objective: Feels well. Itchiness has improved a little. No new skin issues or an y other issues. Exam shows healing skin lesions otherwise unremarkable. I am managing the following issues: Principal Problem: Acute myeloid leukemia (AML), M4 (HCC) Active Problems: Immunocompromised state (HCC) Electrolyte abnormality Pancytopenia due to chemotherapy (HCC) Parotiditis Pain of cheek Rash and nonspecific skin eruption Folliculitis I rounded today, 06/29/2015, in conjunction with the Advanced Practice Provider. I saw the patient, reviewed the history and relevant studies and developed an assessment and plan. Ple ase refer to the ESTHELA's note dated today for additional details on the specific plan and orde rs for today. Thaddeus Rios DO, PhD (cell phone [phone]) Attending physician s total time is 25 minutes, >50% spent counseling and coordination of care. Today, as part of my counseling and coordination of care, I reviewed data, reviewed today's plan, and discussed skin care and early counts. [facility] DEPARTMENT: [id number]- [facility] Place of Service:- Inpatient Date of Service: 06/29/2015 Suggested CPT:40303 - Subsequent, Exp Prob Foc/Mod Complex 25 min ######################################################### Vitals: Systolic (24hrs), Av mmHg, Min:113 mmHg, Max:136 mmHg Diastolic (24hrs), Av mmHg, Min:61 mmHg, Max:82 mmHg Pulse Av.7 Min: 72 Max: 93 Temp Av.7 C (98.1 F) Min: 36.5 C (97.7 F) Max: 37 C (98.6 F) Resp Av Min: 16 Max: 16 SpO2 Av.5 % Min: 97 % Max: 100 % Intake/Output Summary (Last 24 hours) at 06/29/15 1447 Last data filed at 06/29/15 1200 Gross per 24 hour Intake 3720 ml Output 1805 ml Net 1915 ml Current medications: Scheduled Medications Medication Dose Route Frequency Last Rate acyclovir (ZOVIRAX) tablet 800 mg 800 mg oral DAILY chlorhexidine (PERIDEX) mouthwash 15 mL 15 mL oral Q6H levofloxacin (LEVAQUIN) tablet 500 mg 500 mg oral DAILY OLANZapine (ZYPREXA) tablet 10 mg [address] HS [address] (NOXAFIL) tablet 300 mg 300 mg oral DAILY Allergies: No Known Allergies Laboratory or other studies: Recent Labs 06/26/15235406/27/15229906/28/15 2315 WBC 0.19* 0.20* 0.25* HB 7.4* 8.4* 8.7* HCT 20.4* 23.3* 24.7* PLT 8* 10* 15* Recent Labs 06/26/15235406/27/15 23006/28/15 2315 NA 139 139 137 K 4.3 3.9 4.4 CL 106 106 104 BICARB 26 26 27 BUN 15 11 12 CR 1.08 1.02 1.05 CA 9.1 8.9 9.0 MG 1.9 2.0 2.1 PO4 3.7 3.6 4.4 AST 20 22 28 ALT 31 32 35 TBILI 0.3 0.5 0.5 AP 62 68 78 ALB 3.5 3.7 4.1 TP 6.6 7.0 7.7 CULTURE RESULT (no units) Date Value 06/07/2015 Final Report:No Bacteria or Yeast isolated at 5 days. Lab Results Component Value Date APTT 33.7 06/13/2015 FIBRINOGEN 201 06/13/2015 Robyn Lainez, SHOW OPERATIONS SUPERVISOR - 06/29/2015 11:02 AM PST . Daily NPP Note - Chemotherapy Admit Center for Hematologic Malignancies Attending: Thaddeus Rios MD [facility] physician: Dr. Yari Garcia. PCP: Pending Pcp ADDITION Date of Admission: 05/26/2015 Hematologic Malignancy: AML Reason for admission: Work-up and Induction Chemotherapy 24 Hour Events/Current Daily Plan: -Acute Myelomonocytic Leukemia, normal cytogenetics, [facility] genetrails +NRAS (40%). S/p 3+7 i nduction. Day 14 bmbx with residual AML (50-60% cellularity with 50% blasts), Day 18 of HAM re-induction. WBCs 0.25 today with no ANC, however if trend continues may be eligible for ea rly discharge. -Pancytopenic r/t treatment: Standard transfusion parameters. -Bilateral parotitis likely secondary to cytarabine per ENT: Continue warm compresses, pain control, PO hydration. -Dermatitis d/t CHG wipes: Noted 06/27 on back of hands, arms, legs after showering with CH G wipes. Discontinue wipes, continue Eucerin. Benadryl PRN. -Lytes: Standard electrolyte repletion parameters. No replacements required today. Subjective: Feeling well this morning. Still having some itching but improved from yesterda y. Objective: Last Vitals: BP 130/73 | Pulse 78 | Temp 36.6 C (97.9 F) | RR 16 | Ht 1.9 m (6' 2.8") | Wt 80.74 kg (178 lb) | SpO2 100% | BMI 22.37 kg/(m^2) 24 Hour Vital Min/Max: Systolic (24hrs), Av mmHg, Min:113 mmHg, Max:130 mmHg Diastolic (24hrs), Av mmHg, Min:61 mmHg, Max:82 mmHg Pulse Min: 72 Max: 93 Temp Min: 36.5 C (97.7 F) Max: 37 C (98.6 F) Resp Min: 16 Max: 16 SpO2 Min: 97 % Max: 100 % Intake/Output Summary (Last 24 hours) at 06/29/15 1102 Last data filed at 06/29/15 0800 Gross per 24 hour Intake 3290 ml Output 1205 ml Net 2085 ml Physical Exam: General: This is a male in no acute distress. Sitting up in bed. HEENT: PERRL. Sclerae anicteric. Mucosa pink and moist. Mild edema on left cheek. Skin: Minimal folliculitis rash on legs. Chest: Lungs clear to auscultation bilat. CV: RRR, no murmurs. Abdomen: S/NT/ND with NABS. No HSM appreciated. Extremities: Pulses strong and equal bilaterally. No c/c/e. NeuroPsych: Alert and oriented x 3. Grossly nonfocal exam. CVC: PICC line dressing dry and intact Laboratory Results: Recent Labs 06/26/15235406/27/15 2300 06/28/15 2315 NA 139 139 137 K 4.3 3.9 4.4 CL 106 106 104 BICARB 26 26 27 BUN 15 11 12 CR 1.08 1.02 1.05 GLU 104* 135* 93 CA 9.1 8.9 9.0 AST 20 22 28 ALT 31 32 35 AP 62 68 78 TBILI 0.3 0.5 0.5 TP 6.6 7.0 7.7 ALB 3.5 3.7 4.1 Recent Labs 06/22/15 23506/24/15 0003 06/24/15 2300 06/26/15 2355 06/27/15 2300 06/28/15 2315 WBC 0.11* 0.16* 0.17* < > 0.19* 0.20* 0.25* RBC 2.57* 2.47* 2.80* < > 2.43* 2.79* 2.92* HB 7.8* 7.5* 8.3* < > 7.4* 8.4* 8.7* HCT 21.4* 20.7* 23.4* < > 20.4* 23.3* 24.7* PLT 15* 27* 20* < > 8* 10* 15* NEUTROPERC 0.0* 0.0* 0.0* -- -- -- -- LYMPHPERC 100.0* 93.7* 94.1* -- -- -- -- MONOPERC 0.0* 6.3 5.9 -- -- -- -- BASOPERC 0.0 0.0 0.0 -- -- -- -- EOSPERC 0.0* 0.0* 0.0* -- -- -- -- < > = values in this interval not displayed. Meds: Reviewed on rounds, see current MAR for medication list SUMMARY OF PATIENT'S HOSPITALIZATION History of Present Illness: Khurram Kelly is 24 yo M with pmhx of pericarditis and new diagnosis of acute leukemia admitted for induction and management. Had been in usual state of [facility] 03/13/15 (the night of his wedding) at which time he noted bilateral ankle pain and swellin g. This persisted and worsened intermittently, notably when hunting on 03/19/15. Then after w ork, couldn't walk well 2/2 pain and inevitably couldn't bear weight on his feet. Presented to the ED and was diagnosed with cellulitis of the RLE, given antibiotics. During evaluation patient also noted to have pancytopenia with subsequent white blood cell differential ident ifying a predominance of early appearing monocytes. On 04/18/15 began to have pleuritic anterior chest pains, low-grade fevers occasionally up to 101. Also had onset of swelling and erythema over his left ankle, seen in the [facility]'s emergency room on 04/19/15. CT angiogram negative for blood clot. CBC demonstrated whi te count 15,300 with 59% monocytes, 3% immature monocytes, hemoglobin 11.8, platelets 146,00 0. He was apparently treated with antibiotics, also colchicine and anti-inflammatory agents - for possible dx of pericarditis - with complete resolution of his symptoms. After he finished the antibiotics and other medicines, the symptoms came back, repeat trip to the emergency room on 04/26/15. Repeat CT angiogram was again negative for pulmonary embo carmen or other abnormality. CBC showed white count 14,300 with 48% monocytes, 4% immature mono cytes, hemoglobin 12.8, platelets 180,000. He was again treated with the anti-inflammatory r maye colchicine, no antibiotics, again with complete resolution of symptoms. Was referred to Oncology and at that time had pleuritic anterior chest pain, low-grade feve rs. CBC demonstrated white count 17,600 with 66% monocytes, hemoglobin 11.8, platelets 115,0 00, did have 3.5% basophils. Review of his peripheral smear by pathology revealed many immat ure monocytes but no overt blasts. 05/19/15 had bone marrow bx confirming AML (see below) as well as flow cytometry. 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 -Results: 86% of blast equivalents, comprised of myeloblasts, monoblasts and promonocytes. Concurrent flow cytometry detected 23% myeloid blasts and 60% immature monocytic cells suppo rting this diagnosis. -Cytogenetics: Normal male karyotype -GeneTrails from OSH: triple negative for CEBPA , NPM1, FLT3 -Peripheral blood flow 05/27/15: Acute Myelomonocytic Leukemia (47% blasts and 30% monocyte s) -Cytogenetics: normal male karyotype -GeneTrails: NRAS mutation (40%) -Day 14 BM Bx 06/09/15: Residual AML with 50-60% marrow cellularity and approximately 50% bl asts -Plan to send telomere length and chromosomal breakage when he recovers Treatment: -Chemotherapy regimen: standard induction with 3+7 started 05/27/15 -Idarubicin 12 mg/m2 daily x 3 days -Cytarabine 100 mg/m2 CI IV daily x 7 days. -Re-induction chemotherapy regimen: HAM started 06/11/15 -Cytarabine 3000 mg/m2 over 3 hours q 12 hr x 6 doses total, day 1-3 -Pred Forte Eye drops (1%) 2 drops to each eye q 6 hours from day 1 through day 6. First d ose of Pred eye drops to be 1/2 hr before first Cytarabine dose on day 1. -Mitoxantrone 10mg/m2/day over 30 minutes IV on day 4-6 -Chemo Day: 19 (HAM) / 34 (3+7) Patient is a candidate for transplant based on Dx and prognostic feature persistent dise ase day 14. Request insurance approval for typing. HLA typing sent 05/27/15. He has two bro thers for potential donors. Dr. Garcia is transplant physician. #Pancytopenia d/t treatment and disease -supportive care #Supportive Care: Growth factor: Not indicated with this chemotherapy regimen. Labs: Continue to check CBC with diff daily Transfusion parameters: -Transfuse PRBCs for HCT <21% -Transfuse PPH for platelet count <10,000 or sooner PRN s/s bleeding. HEENT: #Parotitis likely d/t chemotherapy: Initially noted to left side on 06/[address] I mproved with a course of zosyn (06/07-06/13), vancomycin (06/09-06/12) for additional staph cov erage and supportive measures (warm compresses, sialogogues, pain control, hydration). Then occurred on right side, and reoccurred on left side. with another zosyn course (06/17-06/22 ), vancomycin (06/17-06/18). ENT thought likely cause is cytarabine with recurrence with fu rther chemo. -Continue conservative management with warm compresses, sialogogues, pain control and hydr ation -Continue oxycodone PRN Cardiovascular: Prechemotherapy Echo results on 05/18: EF 60-65 %. Left ventricular diastol ic function is normal. #Poss Hx of Pericarditis: presented to OSH on several visits to ED with CP. Echo done at [facility] x 2 both normal, no noted pericarditis or effusions. He received a course of colchicine an d is now asymptomatic. #Bradycardia likely medication induced (dexamethsone vs. Mitoxantrone): Asymptomatic. EKG 1 08/16 with sinus bradycardia, left ventricular hypertrophy. HR now in 60s, 70s, last dose of d examethasone and Mitoxantrone 06/16. Pulmonary: #Current Smoker: Smoking cessation counseling offered -Nicotine gum PRN -Consider Nicotine patch is symptoms not controlled GI: #CINV: Resolved. Scop patch stopped as did not help -Antiemetics PRN /Renal: No acute issues Neurology: #Insomnia: -Zyprexa 10mg at bedtime Dermatology: #Leg lesions: resolved. Had indurated and tender scattered lesions (3-4 on each leg). Derm consulted 06/09: biopsies for H+E and cultures done 06/09: negative -sutures removed on 06/23/2015 #Dermatitis d/t CHG wipes: Noted 06/27 on back of hands, arms, legs after showering with CH G wipes. Discontinue wipes. -Eucerin daily -Benadryl PRN Reproductive: #Sperm banking: completed 05/27/15 prior to chemotherapy Infectious Disease: #Screening Tests: Heb B/C - negative, HIV- negative #Parotitis:see HEENT. #Prophylaxis: Bacterial: Levaquin Fungal: Posaconazole, level adequate 06/08 at 1.1. Level 06/28- PENDING. Viral: Acyclovir PCP: Not indicated Fluid/Nutrition/Lytes: #Nutrition: Regular diet, No Kezia's yogurt or Kefir #Fluid: 1L NS PRN for PO intake <2L/day by 2200 #Lytes: Continue to check chemistries daily. Replace per supportive care protocol. Disposition: Will remain hospitalized until count recovery, may be eligible for early disc harge. REBECCA Pérez NP [place] [id number] [facility] Mailcode: [id number] [place], [place] [id number] Paz, Thaddeus Short DO,PhD - 06/28/2015 4:23 PM PST . 06/28/2015 Hematologic Malignancies/Blood and marrow Transplant Attending Note Brief assessment/plan: Pt is a 24 year old male with AML admitted on 05/26/2015 for work-up and initial treatment. Hospital course has been complicated by refractory disease at day 14 evaluation after 7+3, proceeded to [facility]. Also has ongoing parotiditis but overall improving. Had some folliculitis on his shins that he scratched and excoriated. Subjective/Objective: Feels well. He also developed a skin reaction to the body wipes resul ting in itchiness and some redness under his right armpit. Exam reveals mild tenderness on p arotid. Excoriations noted on legs due to scratching (healing). Patch of rash under his righ t axilla. I am managing the following issues: Principal Problem: Acute myeloid leukemia (AML), M4 (HCC) Active Problems: Immunocompromised state (HCC) Electrolyte abnormality Pancytopenia due to chemotherapy (HCC) Parotiditis Pain of cheek I rounded today, 06/28/2015, in conjunction with the Advanced Practice Provider. I saw the patient, reviewed the history and relevant studies and developed an assessment and plan. Ple ase refer to the ESTHELA's note dated today for additional details on the specific plan and orde rs for today. Thaddeus Rios DO, PhD (cell phone [phone]) Attending physician s total time is 35 minutes, >50% spent counseling and coordination of care. Today, as part of my counseling and coordination of care, I reviewed data, reviewed today's plan, and discussed period of count recovery expected. [facility] DEPARTMENT: [id number] - [facility] MPV Place of Service: - Inpatient Date of Service: 06/28/2015 Modifiers: None Suggested CPT: 08277 - Subsequent, Detailed/High complex 35 min ######################################################### Vitals: Systolic (24hrs), Av mmHg, Min:115 mmHg, Max:144 mmHg Diastolic (24hrs), Av mmHg, Min:55 mmHg, Max:85 mmHg Pulse Av.9 Min: 55 Max: 93 Temp Av.8 C (98.2 F) Min: 36.3 C (97.3 F) Max: 37 C (98.6 F) Resp Av.8 Min: 16 Max: 18 SpO2 Av.4 % Min: 99 % Max: 100 % Intake/Output Summary (Last 24 hours) at 06/28/15 1623 Last data filed at 06/28/15 1522 Gross per 24 hour Intake 2621 ml Output 3485 ml Net -864 ml Current medications: Scheduled Medications Medication Dose Route Frequency Last Rate acyclovir (ZOVIRAX) tablet 800 mg 800 mg oral DAILY chlorhexidine (PERIDEX) mouthwash 15 mL 15 mL oral Q6H levofloxacin (LEVAQUIN) tablet 500 mg 500 mg oral DAILY OLANZapine (ZYPREXA) tablet 10 mg 10 mg oral HS ondansetron (ZOFRAN) injection 4 mg 4 mg intravenous Q12H posaconazole DR (NOXAFIL) tablet 300 mg 300 mg oral DAILY Allergies: No Known Allergies Laboratory or other studies: Recent Labs 06/25/15 23306/26/15 2355 06/27/15 2300 WBC 0.13* 0.19* 0.20* HB 7.6* 7.4* 8.4* HCT 21.4* 20.4* 23.3* PLT 13* 8* 10* Recent Labs 06/25/15 2330 06/26/15 2355 06/27/15 2300 NA 139 139 139 K 4.0 4.3 3.9 CL 107 106 106 BICARB 25 26 26 BUN 12 15 11 CR 1.01 1.08 1.02 CA 8.8 9.1 8.9 MG 1.9 1.9 2.0 PO4 4.6 3.7 3.6 AST 14 20 22 ALT 29 31 32 TBILI 0.4 0.3 0.5 AP 62 62 68 ALB 3.5 3.5 3.7 TP 6.7 6.6 7.0 CULTURE RESULT (no units) Date Value 06/07/2015 Final Report:No Bacteria or Yeast isolated at 5 days. Lab Results Component Value Date APTT 33.7 06/13/2015 FIBRINOGEN 201 06/13/2015 Robyn Lainez, SHOW OPERATIONS SUPERVISOR - 06/28/2015 10:20 AM PST . Daily NPP Note - Chemotherapy Admit [facility] Attending: Thaddeus Rios MD [facility] physician: Dr. Yari Garcia. PCP: Pending Pcp ADDITION Date of Admission: 05/26/2015 Hematologic Malignancy: AML Reason for admission: Work-up and Induction Chemotherapy 24 Hour Events/Current Daily Plan: -Acute Myelomonocytic Leukemia, normal cytogenetics, [facility] genetrails +NRAS (40%). S/p 3+7 i nduction. Day 14 bmbx with residual AML (50-60% cellularity with 50% blasts), -day 18 of HAM re-induction. -Pancytopenic r/t treatment: Standard transfusion parameters. Transfused platelets today. -Bilateral parotitis likely secondary to cytarabine per ENT: Continue warm compresses, pain control, PO hydration. -Dermatitis d/t CHG wipes: Noted 06/27 on back of hands, arms, legs after showering with CH G wipes. Discontinue wipes, continue Eucerin. Benadryl PRN. -Lytes: Standard electrolyte repletion parameters. No replacements required today. Subjective: Feeling well today. Itching is improved this morning. Objective: Last Vitals: BP 115/63 | Pulse 55 | Temp 36.6 C (97.9 F) | RR 16 | Ht 1.9 m (6' 2.8") | Wt 81.92 kg (180 lb 9.6 oz) | SpO2 100% | BMI 22.69 kg/(m^2) 24 Hour Vital Min/Max: Systolic (24hrs), Av mmHg, Min:115 mmHg, Max:144 mmHg Diastolic (24hrs), Av mmHg, Min:55 mmHg, Max:85 mmHg Pulse Min: 55 Max: 80 Temp Min: 36.3 C (97.3 F) Max: 37 C (98.6 F) Resp Min: 16 Max: 18 SpO2 Min: 99 % Max: 100 % Intake/Output Summary (Last 24 hours) at 06/28/15 1020 Last data filed at 06/28/15 0900 Gross per 24 hour Intake 3401 ml Output 3785 ml Net -384 ml Physical Exam: General: This is a male in no acute distress. Sitting on edge of bed. HEENT: PERRL. Sclerae anicteric. Mucosa pink and moist. Mild firmness to left cheek with tenderness to palpation. Skin: Minimal folliculitis rash on legs. Chest: Lungs clear to auscultation bilat. CV: RRR, no murmurs. Abdomen: S/NT/ND with NABS. No HSM appreciated. Extremities: Pulses strong and equal bilaterally. No c/c/e. NeuroPsych: Alert and oriented x 3. Grossly nonfocal exam. CVC: PICC line dressing dry and intact Laboratory Results: Recent Labs 06/25/15 2330 06/26/15 2355 06/27/15 2300 NA 139 139 139 K 4.0 4.3 3.9 CL 107 106 106 BICARB 25 26 26 BUN 12 15 11 CR 1.01 1.08 1.02 GLU 104* 104* 135* CA 8.8 9.1 8.9 AST 14 20 22 ALT 29 31 32 AP 62 62 68 TBILI 0.4 0.3 0.5 TP 6.7 6.6 7.0 ALB 3.5 3.5 3.7 Recent Labs 06/22/15 2359 06/24/15 0003 06/24/15 2300 06/25/15 2330 06/26/15 2355 06/27/15 2300 WBC 0.11* 0.16* 0.17* 0.13* 0.19* 0.20* RBC 2.57* 2.47* 2.80* 2.55* 2.43* 2.79* HB 7.8* 7.5* 8.3* 7.6* 7.4* 8.4* HCT 21.4* 20.7* 23.4* 21.4* 20.4* 23.3* PLT 15* 27* 20* 13* 8* 10* NEUTROPERC 0.0* 0.0* 0.0* -- -- -- LYMPHPERC 100.0* 93.7* 94.1* -- -- -- MONOPERC 0.0* 6.3 5.9 -- -- -- BASOPERC 0.0 0.0 0.0 -- -- -- EOSPERC 0.0* 0.0* 0.0* -- -- -- Meds: Reviewed on rounds, see current MAR for medication list SUMMARY OF PATIENT'S HOSPITALIZATION History of Present Illness: Khurram Gambleliat is 24 yo M with pmhx of pericarditis and new diagnosis of acute leukemia admitted for induction and management. Had been in usual state of [facility] 03/13/15 (the night of his wedding) at which time he noted bilateral ankle pain and swellin g. This persisted and worsened intermittently, notably when hunting on 03/19/15. Then after w ork, couldn't walk well 2/2 pain and inevitably couldn't bear weight on his feet. Presented to the ED and was diagnosed with cellulitis of the RLE, given antibiotics. During evaluation patient also noted to have pancytopenia with subsequent white blood cell differential ident ifying a predominance of early appearing monocytes. On 04/18/15 began to have pleuritic anterior chest pains, low-grade fevers occasionally up to 101. Also had onset of swelling and erythema over his left ankle, seen in the [facility]' emergency room on 04/19/15. CT angiogram negative for blood clot. CBC demonstrated whi te count 15,300 with 59% monocytes, 3% immature monocytes, hemoglobin 11.8, platelets 146,00 0. He was apparently treated with antibiotics, also colchicine and anti-inflammatory agents - for possible dx of pericarditis - with complete resolution of his symptoms. After he finished the antibiotics and other medicines, the symptoms came back, repeat trip to the emergency room on 04/26/15. Repeat CT angiogram was again negative for pulmonary embo carmen or other abnormality. CBC showed white count 14,300 with 48% monocytes, 4% immature mono cytes, hemoglobin 12.8, platelets 180,000. He was again treated with the anti-inflammatory r maye colchicine, no antibiotics, again with complete resolution of symptoms. Was referred to Oncology and at that time had pleuritic anterior chest pain, low-grade feve rs. CBC demonstrated white count 17,600 with 66% monocytes, hemoglobin 11.8, platelets 115,0 00, did have 3.5% basophils. Review of his peripheral smear by pathology revealed many immat ure monocytes but no overt blasts. 05/19/15 had bone marrow bx confirming AML (see below) as well as flow cytometry. Hospitalization History: Hematology: #AML Pertinent Diagnostics: -BM Bx done at [facility] 05/19/15, slides reviewed by YESSICA and c/w Acute Myelomonocytic Leukemia in a 90% cellular marrow. -Results: 86% of blast equivalents, comprised of myeloblasts, monoblasts and promonocytes. Concurrent flow cytometry detected 23% myeloid blasts and 60% immature monocytic cells suppo rting this diagnosis. -Cytogenetics: Normal male karyotype -GeneTrails from OSH: triple negative for CEBPA , NPM1, FLT3 -Peripheral blood flow 05/27/15: Acute Myelomonocytic Leukemia (47% blasts and 30% monocyte s) -Cytogenetics: normal male karyotype -GeneTrails: NRAS mutation (40%) -Day 14 BM Bx 06/09/15: Residual AML with 50-60% marrow cellularity and approximately 50% bl asts -Plan to send telomere length and chromosomal breakage when he recovers Treatment: -Chemotherapy regimen: standard induction with 3+7 started 05/27/15 -Idarubicin 12 mg/m2 daily x 3 days -Cytarabine 100 mg/m2 CI IV daily x 7 days. -Re-induction chemotherapy regimen: [facility] started 06/11/15 -Cytarabine 3000 mg/m2 over 3 hours q 12 hr x 6 doses total, day 1-3 -Pred Forte Eye drops (1%) 2 drops to each eye q 6 hours from day 1 through day 6. First d ose of Pred eye drops to be 1/2 hr before first Cytarabine dose on day 1. -Mitoxantrone 10mg/m2/day over 30 minutes IV on day 4-6 -Chemo Day: 18 (HAM) / 33 (3+7) Patient is a candidate for transplant based on Dx and prognostic feature persistent dise ase day 14. Request insurance approval for typing. HLA typing sent 05/27/15. He has two bro thers for potential donors. Dr. Garcia is transplant physician. #Pancytopenia: secondary to acute leukemia. -supportive care #Supportive Care: Growth factor: Not indicated with this chemotherapy regimen. Labs: Continue to check CBC with diff daily Transfusion parameters: -Transfuse PRBCs for HCT <21% -Transfuse PPH for platelet count <10,000 or sooner PRN s/s bleeding. HEENT: #Parotitis likely d/t chemotherapy: Initially noted to left side on 06/[address]. I mproved with a course of zosyn (06/07-06/13), vancomycin (06/09-06/12) for additional staph cov erage and supportive measures (warm compresses, sialogogues, pain control, hydration). Then occurred on right side, and reoccurred on left side. with another zosyn course (06/17-06/22 ), vancomycin (06/17-06/18). ENT thought likely cause is cytarabine with recurrence with fu rther chemo. -Continue conservative management with warm compresses, sialogogues, pain control and hydr ation -Continue oxycodone PRN Cardiovascular: Prechemotherapy Echo results on 05/18: EF 60-65 %. Left ventricular diastol ic function is normal. #Poss Hx of Pericarditis: presented to OSH on several visits to ED with CP. Echo done at [facility] x 2 both normal, no noted pericarditis or effusions. He received a course of colchicine an d is now asymptomatic. #Bradycardia likely medication induced (dexamethsone vs. Mitoxantrone): Asymptomatic. EKG 1 08/16 with sinus bradycardia, left ventricular hypertrophy. HR now in 60s, 70s, last dose of d examethasone and Mitoxantrone 06/16. Pulmonary: #Current Smoker: Smoking cessation counseling offered -Nicotine gum PRN -Consider Nicotine patch is symptoms not controlled GI: #CINV: Resolved. Scop patch stopped as did not help -Continue scheduled compazine and zofran /Renal: No acute issues Neurology: #Insomnia: -Zyprexa 10mg at bedtime Dermatology: #Leg lesions: resolved. Had indurated and tender scattered lesions (3-4 on each leg). Derm consulted 06/09: biopsies for H+E and cultures done 06/09: negative -sutures removed on 06/23/2015 #Dermatitis d/t CHG wipes: Noted 06/27 on back of hands, arms, legs after showering with CH G wipes. Discontinue wipes. -Eucerin daily -Benadryl PRN Reproductive: #Sperm banking: completed 05/27/15 prior to chemotherapy Infectious Disease: #Screening Tests: Heb B/C - negative, HIV- negative #Parotitis:see HEENT. #Prophylaxis: Bacterial: Levaquin Fungal: Posaconazole, level adequate 06/08 at 1.1 Viral: Acyclovir PCP: Not indicated Fluid/Nutrition/Lytes: #Nutrition: Regular diet, No Kezia's yogurt or Kefir #Fluid: 1L NS PRN for PO intake <2L/day by 2200 #Lytes: Continue to check chemistries daily. Replace per supportive care protocol. Disposition: Will remain hospitalized until count recovery, hope for another ~1 week. REBECCA Pérez NP [facility] [id number] [facility] Mailcode: [facility] [place] [address] urmeister, JULIANA Card - 06/27/2015 5:17 PM PSTFormatting of this note might be different from the origi nal. Daily NPP Note - Chemotherapy Admit [facility] Attending: Thaddeus Rios MD [facility] physician: Dr. Yari Garcia. PCP: Pending Pcp ADDITION Date of Admission: 05/26/2015 Hematologic Malignancy: AML Reason for admission: Work-up and Induction Chemotherapy 24 Hour Events/Current Daily Plan: -Acute Myelomonocytic Leukemia, normal cytogenetics, [facility] genetrails +NRAS (40%). S/p 3+7 i nduction. Day 14 bmbx with residual AML (50-60% cellularity with 50% blasts), -day 17 of HAM re-induction. -Pancytopenic r/t treatment: Standard transfusion parameters. Transfuse blood and platelet s today. -Bilateral parotitis likely secondary to cytarabine per ENT: Continue warm compresses, pain control, PO hydration. -Insomnia: improved on Zyprexa. -Lytes: Standard electrolyte repletion parameters. No replacements required today. Subjective: Pain in left cheek is improving overall but still quite tender. Otherwise feeli ng well. Objective: Last Vitals: BP 144/85 | Pulse 75 | Temp 36.3 C (97.3 F) | RR 18 | Ht 1.9 m (6' 2.8") | Wt 81.103 kg (178 lb 12.8 oz) | SpO2 99% | BMI 22.47 kg/(m^2) 24 Hour Vital Min/Max: Systolic (24hrs), Av mmHg, Min:109 mmHg, Max:144 mmHg Diastolic (24hrs), Av mmHg, Min:57 mmHg, Max:85 mmHg Pulse Min: 59 Max: 85 Temp Min: 36.3 C (97.3 F) Max: 36.9 C (98.4 F) Resp Min: 14 Max: 18 SpO2 Min: 98 % Max: 100 % Intake/Output Summary (Last 24 hours) at 06/27/15 1717 Last data filed at 06/27/15 1648 Gross per 24 hour Intake 4594 ml Output 3460 ml Net 1134 ml Physical Exam: General: This is a male in no acute distress. Siting up in bed. HEENT: PERRL. Sclerae anicteric. Mucosa pink and moist. Mild firmness to left cheek with tenderness to palpation. Skin: Minimal folliculitis rash on legs. Chest: Lungs clear to auscultation bilat. CV: RRR, no murmurs. Abdomen: S/NT/ND with NABS. No HSM appreciated. Extremities: Pulses strong and equal bilaterally. No c/c/e. NeuroPsych: Alert and oriented x 3. Grossly nonfocal exam. CVC: PICC line dressing dry and intact Laboratory Results: Recent Labs 06/24/15 2300 06/25/15 1101 06/25/15 2330 06/26/15 2355 NA 139 138 139 139 K 4.0 4.0 4.0 4.3 CL 105 105 107 106 BICARB 25 24 25 26 BUN 16 13 12 15 CR 1.20 0.90 1.01 1.08 GLU 77 106* 104* 104* CA 8.9 9.1 8.8 9.1 AST 15 -- 14 20 ALT 39 -- 29 31 AP 65 -- 62 62 TBILI 0.5 -- 0.4 0.3 TP 7.1 -- 6.7 6.6 ALB 3.6 -- 3.5 3.5 Recent Labs 06/22/15 2359 06/24/15 0003 06/24/15 2300 06/25/15 2330 06/26/15 2355 WBC 0.11* 0.16* 0.17* 0.13* 0.19* RBC 2.57* 2.47* 2.80* 2.55* 2.43* HB 7.8* 7.5* 8.3* 7.6* 7.4* HCT 21.4* 20.7* 23.4* 21.4* 20.4* PLT 15* 27* 20* 13* 8* NEUTROPERC 0.0* 0.0* 0.0* -- -- LYMPHPERC 100.0* 93.7* 94.1* -- -- MONOPERC 0.0* 6.3 5.9 -- -- BASOPERC 0.0 0.0 0.0 -- -- EOSPERC 0.0* 0.0* 0.0* -- -- Meds: Reviewed on rounds, see current MAR for medication list SUMMARY OF PATIENT'S HOSPITALIZATION History of Present Illness: Khurram Kelly is 24 yo M with pmhx of pericarditis and new diagnosis of acute leukemia admitted for induction and management. Had been in usual state of [facility] 03/13/15 (the night of his wedding) at which time he noted bilateral ankle pain and swellin g. This persisted and worsened intermittently, notably when hunting on 03/19/15. Then after w ork, couldn't walk well 2/2 pain and inevitably couldn't bear weight on his feet. Presented to the ED and was diagnosed with cellulitis of the RLE, given antibiotics. During evaluation patient also noted to have pancytopenia with subsequent white blood cell differential ident ifying a predominance of early appearing monocytes. On 04/18/15 began to have pleuritic anterior chest pains, low-grade fevers occasionally up to 101. Also had onset of swelling and erythema over his left ankle, seen in the [facility]'s emergency room on 04/19/15. CT angiogram negative for blood clot. CBC demonstrated whi te count 15,300 with 59% monocytes, 3% immature monocytes, hemoglobin 11.8, platelets 146,00 0. He was apparently treated with antibiotics, also colchicine and anti-inflammatory agents - for possible dx of pericarditis - with complete resolution of his symptoms. After he finished the antibiotics and other medicines, the symptoms came back, repeat trip to the emergency room on 04/26/15. Repeat CT angiogram was again negative for pulmonary embo carmen or other abnormality. CBC showed white count 14,300 with 48% monocytes, 4% immature mono cytes, hemoglobin 12.8, platelets 180,000. He was again treated with the anti-inflammatory r maye colchicine, no antibiotics, again with complete resolution of symptoms. Was referred to Oncology and at that time had pleuritic anterior chest pain, low-grade feve rs. CBC demonstrated white count 17,600 with 66% monocytes, hemoglobin 11.8, platelets 115,0 00, did have 3.5% basophils. Review of his peripheral smear by pathology revealed many immat ure monocytes but no overt blasts. 05/19/15 had bone marrow bx confirming AML (see below) as well as flow cytometry. Hospitalization History: Hematology: #AML Pertinent Diagnostics: -BM Bx done at [facility] 05/19/15, slides reviewed by [facility] and c/w Acute Myelomonocytic Leukemia in a 90% cellular marrow. -Results: 86% of blast equivalents, comprised of myeloblasts, monoblasts and promonocytes. Concurrent flow cytometry detected 23% myeloid blasts and 60% immature monocytic cells suppo rting this diagnosis. -Cytogenetics: Normal male karyotype -GeneTrails from OSH: triple negative for CEBPA , NPM1, FLT3 -Peripheral blood flow 05/27/15: Acute Myelomonocytic Leukemia (47% blasts and 30% monocyte s) -Cytogenetics: normal male karyotype -GeneTrails: NRAS mutation (40%) -Day 14 BM Bx 06/09/15: Residual AML with 50-60% marrow cellularity and approximately 50% bl asts -Plan to send telomere length and chromosomal breakage when he recovers Treatment: -Chemotherapy regimen: standard induction with 3+7 started 05/27/15 -Idarubicin 12 mg/m2 daily x 3 days -Cytarabine 100 mg/m2 CI IV daily x 7 days. -Re-induction chemotherapy regimen: [facility] started 06/11/15 -Cytarabine 3000 mg/m2 over 3 hours q 12 hr x 6 doses total, day 1-3 -Pred Forte Eye drops (1%) 2 drops to each eye q 6 hours from day 1 through day 6. First d ose of Pred eye drops to be 1/2 hr before first Cytarabine dose on day 1. -Mitoxantrone 10mg/m2/day over 30 minutes IV on day 4-6 -Chemo Day: 17 (HAM) / 32 (3+7) Patient is a candidate for transplant based on Dx and prognostic feature persistent dise ase day 14. Request insurance approval for typing. HLA typing sent 05/27/15. He has two bro thers for potential donors. Dr. Garcia is transplant physician. #Pancytopenia: secondary to acute leukemia. -supportive care #Supportive Care: Growth factor: Not indicated with this chemotherapy regimen. Labs: Continue to check CBC with diff daily Transfusion parameters: -Transfuse PRBCs for HCT <21% -Transfuse PPH for platelet count <10,000 or sooner PRN s/s bleeding. HEENT: #Parotitis likely d/t chemotherapy: Initially noted to left side on 06/[address]. I mproved with a course of zosyn (06/07-06/13), vancomycin (06/09-06/12) for additional staph cov erage and supportive measures (warm compresses, sialogogues, pain control, hydration). Then occurred on right side, and reoccurred on left side. with another zosyn course (06/17-06/22 ), vancomycin (06/17-06/18). ENT thought likely cause is cytarabine with recurrence with fu rther chemo. -Continue conservative management with warm compresses, sialogogues, pain control and hydr ation -Continue oxycodone PRN Cardiovascular: Prechemotherapy Echo results on 05/18: EF 60-65 %. Left ventricular diastol ic function is normal. #Poss Hx of Pericarditis: presented to OSH on several visits to ED with CP. Echo done at [facility] x 2 both normal, no noted pericarditis or effusions. He received a course of colchicine an d is now asymptomatic. #Bradycardia likely medication induced (dexamethsone vs. Mitoxantrone): Asymptomatic. EKG 1 08/16 with sinus bradycardia, left ventricular hypertrophy. HR now in 60s, 70s, last dose of d examethasone and Mitoxantrone 06/16. Pulmonary: #Current Smoker: Smoking cessation counseling offered -Nicotine gum PRN -Consider Nicotine patch is symptoms not controlled GI: #CINV: Resolved. Scop patch stopped as did not help -Continue scheduled compazine and zofran /Renal: No acute issues Neurology: #Insomnia: -Zyprexa 10mg at bedtime Dermatology: #Leg lesions: resolved. Had indurated and tender scattered lesions (3-4 on each leg). Derm consulted 06/09: biopsies for H+E and cultures done 06/09: negative -sutures removed on 06/23/2015 Reproductive: #Sperm banking: completed 05/27/15 prior to chemotherapy Infectious Disease: #Screening Tests: Heb B/C - negative, HIV- negative #Parotitis:see HEENT. #Prophylaxis: Bacterial: Levaquin Fungal: Posaconazole, level adequate 06/08 at 1.1 Viral: Acyclovir PCP: Not indicated Fluid/Nutrition/Lytes: #Nutrition: Regular diet, No Kezia's yogurt or Kefir #Fluid: 1L NS PRN for PO intake <2L/day by 2200 #Lytes: Continue to check chemistries daily. Replace per supportive care protocol. Disposition: Will remain hospitalized until count recovery, hope for another ~1 week. JULIANA [facility] [address] [place] [address] Mailcode: [id number] [id number] abriel, Thaddeus Short DO,PhD - 06/27/2015 3:04 PM PSTFormatting of this note might be different from the origi nal. 06/27/2015 Hematologic Malignancies/Blood and marrow Transplant Attending Note Brief assessment/plan: Pt is a 24 year old male with AML admitted on 05/26/2015 for work-up and initial treatment. Hospital course has been complicated by refractory disease at day 14 evaluation after 7+3, proceeded to [facility]. Also has ongoing parotiditis but overall improving. Subjective/Objective: Feels well. No new issues. Parotid gland feels better. Watching footb all with some friends. Exam reveals mild tenderness on parotid. Excoriations noted on legs due to scratching (healing). I am managing the following issues: Principal Problem: Acute myeloid leukemia (AML), M4 (HCC) Active Problems: Immunocompromised state (HCC) Electrolyte abnormality Pancytopenia due to chemotherapy (HCC) Parotiditis Pain of cheek I rounded today, 06/27/2015, in conjunction with the Advanced Practice Provider. I saw the patient, reviewed the history and relevant studies and developed an assessment and plan. Ple ase refer to the ESTHELA's note dated today for additional details on the specific plan and orde rs for today. Thaddeus Rios DO, PhD (cell phone [phone]) Attending physician s total time is 35 minutes, >50% spent counseling and coordination of care. Today, as part of my counseling and coordination of care, I reviewed data, reviewed today's plan, and discussed supportive care. [facility] DEPARTMENT: [id number]- [facility] [place] Place of Service:- Inpatient Date of Service: 06/27/2015 Suggested CPT:59603 - Subsequent, Exp Prob Foc/Mod Complex 25 min ######################################################### Vitals: Systolic (24hrs), Av mmHg, Min:109 mmHg, Max:140 mmHg Diastolic (24hrs), Av mmHg, Min:57 mmHg, Max:85 mmHg Pulse Av.2 Min: 59 Max: 85 Temp Av.8 C (98.2 F) Min: 36.5 C (97.7 F) Max: 36.9 C (98.4 F) Resp Av.6 Min: 14 Max: 16 SpO2 Av.2 % Min: 98 % Max: 100 % Intake/Output Summary (Last 24 hours) at 06/27/15 1504 Last data filed at 06/27/15 1337 Gross per 24 hour Intake 2744 ml Output 3080 ml Net -336 ml Current medications: Scheduled Medications Medication Dose Route Frequency Last Rate acyclovir (ZOVIRAX) tablet 800 mg 800 mg oral DAILY chlorhexidine (PERIDEX) mouthwash 15 mL 15 mL oral Q6H levofloxacin (LEVAQUIN) tablet 500 mg 500 mg oral DAILY OLANZapine (ZYPREXA) tablet 10 mg 10 mg oral HS ondansetron (ZOFRAN) injection 4 mg 4 mg intravenous Q12H posaconazole DR (NOXAFIL) tablet 300 mg 300 mg oral DAILY Allergies: No Known Allergies Laboratory or other studies: Recent Labs 06/24/15 2300 06/25/15 2330 06/26/15 2355 WBC 0.17* 0.13* 0.19* HB 8.3* 7.6* 7.4* HCT 23.4* 21.4* 20.4* PLT 20* 13* 8* NEUTROPERC 0.0* -- -- LYMPHPERC 94.1* -- -- MONOPERC 5.9 -- -- BASOPERC 0.0 -- -- EOSPERC 0.0* -- -- Recent Labs 06/24/15 2300 06/25/15 1101 06/25/15 2330 06/26/15 2355 NA 139 138 139 139 K 4.0 4.0 4.0 4.3 CL 105 105 107 106 BICARB 25 24 25 26 BUN 16 13 12 15 CR 1.20 0.90 1.01 1.08 CA 8.9 9.1 8.8 9.1 MG 1.9 -- 1.9 1.9 PO4 4.9* -- 4.6 3.7 AST 15 -- 14 20 ALT 39 -- 29 31 TBILI 0.5 -- 0.4 0.3 AP 65 -- 62 62 ALB 3.6 -- 3.5 3.5 TP 7.1 -- 6.7 6.6 CULTURE RESULT (no units) Date Value 06/07/2015 Final Report:No Bacteria or Yeast isolated at 5 days. Lab Results Component Value Date APTT 33.7 06/13/2015 FIBRINOGEN 201 06/13/2015 osa Tracey PA - 06/26/2015 3:50 PM PSTFormatting of this note might be different from the origi nal. Daily NPP Note - Chemotherapy Admit [facility] Attending: Thaddeus Rios MD [facility] physician: Dr. Yari Garcia. PCP: Pending Pcp ADDITION Date of Admission: 05/26/2015 Hematologic Malignancy: AML Reason for admission: Work-up and Induction Chemotherapy 24 Hour Events/Current Daily Plan: -Acute Myelomonocytic Leukemia, normal cytogenetics, [facility] genetrails +NRAS (40%). S/p 3+7 i nduction. Day 14 bmbx with residual AML (50-60% cellularity with 50% blasts), -day 16 of HAM re-induction. -Pancytopenic r/t treatment: Standard transfusion parameters. No transfusions needed today . -Bilateral parotitis likely secondary to cytarabine per ENT: Continue warm compresses, pain control, PO hydration. -Insomnia: improved on Zyprexa. -Lytes: Standard electrolyte repletion parameters. No replacements required today. Subjective: Feeling well overall. Still has pain in left cheek but IV pain meds are effecti ve. Objective: Last Vitals: BP 125/80 | Pulse 89 | Temp 36.5 C (97.7 F) | RR 18 | Ht 1.9 m (6' 2.8") | Wt 81.647 kg (180 lb) | SpO2 99% | BMI 22.62 kg/(m^2) 24 Hour Vital Min/Max: Systolic (24hrs), Av mmHg, Min:113 mmHg, Max:137 mmHg Diastolic (24hrs), Av mmHg, Min:53 mmHg, Max:82 mmHg Pulse Min: 65 Max: 89 Temp Min: 36.5 C (97.7 F) Max: 37 C (98.6 F) Resp Min: 16 Max: 18 SpO2 Min: 98 % Max: 100 % Intake/Output Summary (Last 24 hours) at 06/26/15 1550 Last data filed at 06/26/15 1400 Gross per 24 hour Intake 5925 ml Output 2805 ml Net 3120 ml Physical Exam: General: This is a male in no acute distress. Siting up in bed. HEENT: PERRL. Sclerae anicteric. Mucosa pink and moist. Mild firmness to left cheek with tenderness to palpation. Skin: Minimal folliculitis rash on legs. Chest: Lungs clear to auscultation bilat. CV: RRR, no murmurs. Abdomen: S/NT/ND with NABS. No HSM appreciated. Extremities: Pulses strong and equal bilaterally. No c/c/e. NeuroPsych: Alert and oriented x 3. Grossly nonfocal exam. CVC: PICC line dressing dry and intact Laboratory Results: Recent Labs 06/24/15 0003 06/24/15 2300 06/25/15 1101 06/25/15 2330 NA 139 139 138 139 K 3.9 4.0 4.0 4.0 CL 107 105 105 107 BICARB 25 25 24 25 BUN 14 16 13 12 CR 0.82 1.20 0.90 1.01 GLU 106* 77 106* 104* CA 8.8 8.9 9.1 8.8 AST 11 15 -- 14 ALT 38 39 -- 29 AP 66 65 -- 62 TBILI 0.3 0.5 -- 0.4 TP 6.8 7.1 -- 6.7 ALB 3.5 3.6 -- 3.5 Recent Labs 06/22/15 2359 06/24/15 0003 06/24/15 2300 06/25/15 2330 WBC 0.11* 0.16* 0.17* 0.13* RBC 2.57* 2.47* 2.80* 2.55* HB 7.8* 7.5* 8.3* 7.6* HCT 21.4* 20.7* 23.4* 21.4* PLT 15* 27* 20* 13* NEUTROPERC 0.0* 0.0* 0.0* -- LYMPHPERC 100.0* 93.7* 94.1* -- MONOPERC 0.0* 6.3 5.9 -- BASOPERC 0.0 0.0 0.0 -- EOSPERC 0.0* 0.0* 0.0* -- Meds: Reviewed on rounds, see current MAR for medication list SUMMARY OF PATIENT'S HOSPITALIZATION History of Present Illness: Khurram Kelly is 24 yo M with pmhx of pericarditis and new diagnosis of acute leukemia admitted for induction and management. Had been in usual state of [facility] 03/13/15 (the night of his wedding) at which time he noted bilateral ankle pain and swellin g. This persisted and worsened intermittently, notably when hunting on 03/19/15. Then after w ork, couldn't walk well 2/2 pain and inevitably couldn't bear weight on his feet. Presented to the ED and was diagnosed with cellulitis of the RLE, given antibiotics. During evaluation patient also noted to have pancytopenia with subsequent white blood cell differential ident ifying a predominance of early appearing monocytes. On 04/18/15 began to have pleuritic anterior chest pains, low-grade fevers occasionally up to 101. Also had onset of swelling and erythema over his left ankle, seen in the [facility]'s emergency room on 04/19/15. CT angiogram negative for blood clot. CBC demonstrated whi te count 15,300 with 59% monocytes, 3% immature monocytes, hemoglobin 11.8, platelets 146,00 0. He was apparently treated with antibiotics, also colchicine and anti-inflammatory agents - for possible dx of pericarditis - with complete resolution of his symptoms. After he finished the antibiotics and other medicines, the symptoms came back, repeat trip to the emergency room on 04/26/15. Repeat CT angiogram was again negative for pulmonary embo carmen or other abnormality. CBC showed white count 14,300 with 48% monocytes, 4% immature mono cytes, hemoglobin 12.8, platelets 180,000. He was again treated with the anti-inflammatory r maye colchicine, no antibiotics, again with complete resolution of symptoms. Was referred to Oncology and at that time had pleuritic anterior chest pain, low-grade feve rs. CBC demonstrated white count 17,600 with 66% monocytes, hemoglobin 11.8, platelets 115,0 00, did have 3.5% basophils. Review of his peripheral smear by pathology revealed many immat ure monocytes but no overt blasts. 05/19/15 had bone marrow bx confirming AML (see below) as well as flow cytometry. 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 -Results: 86% of blast equivalents, comprised of myeloblasts, monoblasts and promonocytes. Concurrent flow cytometry detected 23% myeloid blasts and 60% immature monocytic cells suppo rting this diagnosis. -Cytogenetics: Normal male karyotype -GeneTrails from OSH: triple negative for CEBPA , NPM1, FLT3 -Peripheral blood flow 05/27/15: Acute Myelomonocytic Leukemia (47% blasts and 30% monocyte s) -Cytogenetics: normal male karyotype -GeneTrails: NRAS mutation (40%) -Day 14 BM Bx 06/09/15: Residual AML with 50-60% marrow cellularity and approximately 50% bl asts -Plan to send telomere length and chromosomal breakage when he recovers Treatment: -Chemotherapy regimen: standard induction with 3+7 started 05/27/15 -Idarubicin 12 mg/m2 daily x 3 days -Cytarabine 100 mg/m2 CI IV daily x 7 days. -Re-induction chemotherapy regimen: HAM started 06/11/15 -Cytarabine 3000 mg/m2 over 3 hours q 12 hr x 6 doses total, day 1-3 -Pred Forte Eye drops (1%) 2 drops to each eye q 6 hours from day 1 through day 6. First d ose of Pred eye drops to be 1/2 hr before first Cytarabine dose on day 1. -Mitoxantrone 10mg/m2/day over 30 minutes IV on day 4-6 -Chemo Day: 16 (HAM) / 31 (3+7) Patient is a candidate for transplant based on Dx and prognostic feature persistent dise ase day 14. Request insurance approval for typing. HLA typing sent 05/27/15. He has two bro thers for potential donors. Dr. Garcia is transplant physician. #Pancytopenia: secondary to acute leukemia. -supportive care #Supportive Care: Growth factor: Not indicated with this chemotherapy regimen. Labs: Continue to check CBC with diff daily Transfusion parameters: -Transfuse PRBCs for HCT <21% -Transfuse PPH for platelet count <10,000 or sooner PRN s/s bleeding. HEENT: #Parotitis likely d/t chemotherapy: Initially noted to left side on 06/[address] I mproved with a course of zosyn (06/07-06/13), vancomycin (06/09-06/12) for additional staph cov erage and supportive measures (warm compresses, sialogogues, pain control, hydration). Then occurred on right side, and reoccurred on left side. with another zosyn course (06/17-06/22 ), vancomycin (06/17-06/18). ENT thought likely cause is cytarabine with recurrence with fu rther chemo. -Continue conservative management with warm compresses, sialogogues, pain control and hydr ation -Continue oxycodone PRN Cardiovascular: Prechemotherapy Echo results on 05/18: EF 60-65 %. Left ventricular diastol ic function is normal. #Poss Hx of Pericarditis: presented to OSH on several visits to ED with CP. Echo done at [facility] x 2 both normal, no noted pericarditis or effusions. He received a course of colchicine an d is now asymptomatic. #Bradycardia likely medication induced (dexamethsone vs. Mitoxantrone): Asymptomatic. EKG 1 08/16 with sinus bradycardia, left ventricular hypertrophy. HR now in 60s, 70s, last dose of d examethasone and Mitoxantrone 06/16. Pulmonary: #Current Smoker: Smoking cessation counseling offered -Nicotine gum PRN -Consider Nicotine patch is symptoms not controlled GI: #CINV: Resolved. Scop patch stopped as did not help -Continue scheduled compazine and zofran /Renal: No acute issues Neurology: #Insomnia: -Zyprexa 10mg at bedtime Dermatology: #Leg lesions: resolved. Had indurated and tender scattered lesions (3-4 on each leg). Derm consulted 06/09: biopsies for H+E and cultures done 06/09: negative -sutures removed on 06/23/2015 Reproductive: #Sperm banking: completed 05/27/15 prior to chemotherapy Infectious Disease: #Screening Tests: Heb B/C - negative, HIV- negative #Parotitis:see HEENT. #Prophylaxis: Bacterial: Levaquin Fungal: Posaconazole, level adequate 06/08 at 1.1 Viral: Acyclovir PCP: Not indicated Fluid/Nutrition/Lytes: #Nutrition: Regular diet, No Kezia's yogurt or Kefir #Fluid: 1L NS PRN for PO intake <2L/day by 2200 #Lytes: Continue to check chemistries daily. Replace per supportive care protocol. Disposition: Will remain hospitalized until count recovery, plan for another 1-2 weeks. [facility] Mailcode: [id number] [id number] Thaddeus Mullen DO,PhD - 06/26/2015 2:45 PM PSTFormatting of this note might be different from the origi nal. 06/26/2015 Hematologic Malignancies/Blood and marrow Transplant Attending Note Brief assessment/plan: Pt is a 24 year old male with AML admitted on 05/26/2015 for work-up and initial treatment. Hospital course has been complicated by refractory disease at day 14 evaluation after 7+3, proceeded to [facility]. Also has ongoing parotiditis but overall improving. Subjective/Objective: Feels well. No new issues. Staying active on floor. His parotid gland s are dyeing machine back tender especially left > right. I am managing the following specific issues: Principal Problem: Acute myeloid leukemia (AML), M4 (HCC) Active Problems: Immunocompromised state (HCC) Electrolyte abnormality Pancytopenia due to chemotherapy (HCC) Parotiditis Pain of cheek I rounded today, 06/26/2015, in conjunction with the Advanced Practice Provider. I saw the patient, reviewed the history and relevant studies and developed an assessment and plan. Ple ase refer to the ESTHELA's note dated today for additional details on the specific plan and orde rs for today; and a comprehensive list of problems being actively managed. Thaddeus Rios DO, PhD (cell phone [phone]) Attending physician s total time is 35 minutes, >50% spent counseling and coordination of care. Today, as part of my counseling and coordination of care, I reviewed data, reviewed today's plan, and discussed overall plan. [facility] DEPARTMENT: [id number] - [facility] MPV Place of Service: - Inpatient Date of Service: 06/26/2015 Modifiers: None Suggested CPT: 97124 - Subsequent, Detailed/High complex 35 min ######################################################### Vitals: Systolic (24hrs), Av mmHg, Min:113 mmHg, Max:138 mmHg Diastolic (24hrs), Av mmHg, Min:53 mmHg, Max:82 mmHg Pulse Av.2 Min: 65 Max: 81 Temp Av.7 C (98 F) Min: 36.5 C (97.7 F) Max: 37 C (98.6 F) Resp Av.6 Min: 16 Max: 18 SpO2 Av.2 % Min: 98 % Max: 100 % Intake/Output Summary (Last 24 hours) at 06/26/15 1445 Last data filed at 06/26/15 1400 Gross per 24 hour Intake 5925 ml Output 2805 ml Net 3120 ml Current medications: Scheduled Medications Medication Dose Route Frequency Last Rate acyclovir (ZOVIRAX) tablet 800 mg 800 mg oral DAILY chlorhexidine (PERIDEX) mouthwash 15 mL 15 mL oral Q6H levofloxacin (LEVAQUIN) tablet 500 mg 500 mg oral DAILY OLANZapine (ZYPREXA) tablet 10 mg 10 mg oral HS ondansetron (ZOFRAN) injection 4 mg 4 mg intravenous Q12H posaconazole DR (NOXAFIL) tablet 300 mg 300 mg oral DAILY Allergies: No Known Allergies Laboratory or other studies: Recent Labs 06/24/15 0003 06/24/15 2300 06/25/15 2330 WBC 0.16* 0.17* 0.13* HB 7.5* 8.3* 7.6* HCT 20.7* 23.4* 21.4* PLT 27* 20* 13* NEUTROPERC 0.0* 0.0* -- LYMPHPERC 93.7* 94.1* -- MONOPERC 6.3 5.9 -- BASOPERC 0.0 0.0 -- EOSPERC 0.0* 0.0* -- Recent Labs 06/24/15 0003 06/24/15 2300 06/25/15 1101 06/25/15 2330 NA 139 139 138 139 K 3.9 4.0 4.0 4.0 CL 107 105 105 107 BICARB 25 25 24 25 BUN 14 16 13 12 CR 0.82 1.20 0.90 1.01 CA 8.8 8.9 9.1 8.8 MG 2.0 1.9 -- 1.9 PO4 3.8 4.9* -- 4.6 AST 11 15 -- 14 ALT 38 39 -- 29 TBILI 0.3 0.5 -- 0.4 AP 66 65 -- 62 ALB 3.5 3.6 -- 3.5 TP 6.8 7.1 -- 6.7 CULTURE RESULT (no units) Date Value 06/07/2015 Final Report:No Bacteria or Yeast isolated at 5 days. Lab Results Component Value Date APTT 33.7 06/13/2015 FIBRINOGEN 201 06/13/2015 osa Tracey PA - 06/25/2015 4:16 PM PSTFormatting of this note might be different from the origi nal. Daily NPP Note - Chemotherapy Admit [facility] for Hematologic Malignancies Attending: Lashonda Chapa MD PCP: Pending Pcp ADDITION Date of Admission: 05/26/2015 Hematologic Malignancy: AML Reason for admission: Work-up and Induction Chemotherapy 24 Hour Events/Current Daily Plan: -Acute Myelomonocytic Leukemia, normal cytogenetics, [facility] genetrails +NRAS (40%). S/p 3+7 i nduction. Day 14 bmbx with residual AML (50-60% cellularity with 50% blasts), now day 15 of HAM re-induction. -Pancytopenic r/t treatment: Standard transfusion parameters. Continue to administer fresh est platelet product available. -Bilateral parotitis likely secondary to cytarabine per ENT: Continue warm compresses, pain control, PO hydration. -Insomnia: improved on Zyprexa. -Lytes: Standard electrolyte repletion parameters. No replacements required today. Subjective: Having left sided mouth pain and feels firmness. Worse with eating. Mouth is ge tting "chewed up" from eating sour things. Objective: Last Vitals: BP 138/82 | Pulse 72 | Temp 36.6 C (97.9 F) | RR 17 | Ht 1.9 m (6' 2.8") | Wt 80.922 kg (178 lb 6.4 oz) | SpO2 100% | BMI 22.42 kg/(m^2) 24 Hour Vital Min/Max: Systolic (24hrs), Av mmHg, Min:115 mmHg, Max:138 mmHg Diastolic (24hrs), Av mmHg, Min:65 mmHg, Max:82 mmHg Pulse Min: 60 Max: 83 Temp Min: 36.6 C (97.9 F) Max: 37.1 C (98.8 F) Resp Min: 16 Max: 18 SpO2 Min: 99 % Max: 100 % Intake/Output Summary (Last 24 hours) at 06/25/15 1616 Last data filed at 06/25/15 1400 Gross per 24 hour Intake 4630 ml Output 2250 ml Net 2380 ml Physical Exam: General: This is a male in no acute distress. Siting up in bed. HEENT: PERRL. Sclerae anicteric. Mucosa pink and moist. Mild firmness to left cheek with tenderness to palpation. Skin: Minimal petechial rash on legs. Chest: Lungs clear to auscultation bilat. CV: RRR, no murmurs. Abdomen: S/NT/ND with NABS. No HSM appreciated. Extremities: Pulses strong and equal bilaterally. No c/c/e. NeuroPsych: Alert and oriented x 3. Grossly nonfocal exam. CVC: PICC line dressing dry and intact Laboratory Results: Recent Labs 06/22/15235806/24/15 0003 06/24/15 2300 06/25/15 1101 NA 138 139 139 138 K 4.1 3.9 4.0 4.0 CL 105 107 105 105 BICARB 27 25 25 24 BUN 11 14 16 13 CR 0.95 0.82 1.20 0.90 GLU 99 106* 77 106* CA 9.3 8.8 8.9 9.1 AST 10 11 15 -- ALT 35 38 39 -- AP 66 66 65 -- TBILI 0.4 0.3 0.5 -- TP 7.2 6.8 7.1 -- ALB 3.6 3.5 3.6 -- Recent Labs 06/22/15235806/24/15 0003 06/24/15 2300 WBC 0.11* 0.16* 0.17* RBC 2.57* 2.47* 2.80* HB 7.8* 7.5* 8.3* HCT 21.4* 20.7* 23.4* PLT 15* 27* 20* NEUTROPERC 0.0* 0.0* 0.0* LYMPHPERC 100.0* 93.7* 94.1* MONOPERC 0.0* 6.3 5.9 BASOPERC 0.0 0.0 0.0 EOSPERC 0.0* 0.0* 0.0* Meds: Reviewed on rounds, see current MAR for medication list SUMMARY OF PATIENT'S HOSPITALIZATION History of Present Illness: Khurram Kelly is 24 yo M with pmhx of pericarditis and new diagnosis of acute leukemia admitted for induction and management. Had been in usual state of [facility] 03/13/15 (the night of his wedding) at which time he noted bilateral ankle pain and swellin g. This persisted and worsened intermittently, notably when hunting on 03/19/15. Then after w ork, couldn't walk well 2/2 pain and inevitably couldn't bear weight on his feet. Presented to the ED and was diagnosed with cellulitis of the RLE, given antibiotics. During evaluation patient also noted to have pancytopenia with subsequent white blood cell differential ident ifying a predominance of early appearing monocytes. On 04/18/15 began to have pleuritic anterior chest pains, low-grade fevers occasionally up to 101. Also had onset of swelling and erythema over his left ankle, seen in the [facility]' emergency room on 04/19/15. CT angiogram negative for blood clot. CBC demonstrated whi te count 15,300 with 59% monocytes, 3% immature monocytes, hemoglobin 11.8, platelets 146,00 0. He was apparently treated with antibiotics, also colchicine and anti-inflammatory agents - for possible dx of pericarditis - with complete resolution of his symptoms. After he finished the antibiotics and other medicines, the symptoms came back, repeat trip to the emergency room on 04/26/15. Repeat CT angiogram was again negative for pulmonary embo carmen or other abnormality. CBC showed white count 14,300 with 48% monocytes, 4% immature mono cytes, hemoglobin 12.8, platelets 180,000. He was again treated with the anti-inflammatory r maye colchicine, no antibiotics, again with complete resolution of symptoms. Was referred to Oncology and at that time had pleuritic anterior chest pain, low-grade feve rs. CBC demonstrated white count 17,600 with 66% monocytes, hemoglobin 11.8, platelets 115,0 00, did have 3.5% basophils. Review of his peripheral smear by pathology revealed many immat ure monocytes but no overt blasts. 05/19/15 had bone marrow bx confirming AML (see below) as well as flow cytometry. 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 -Results: 86% of blast equivalents, comprised of myeloblasts, monoblasts and promonocytes. Concurrent flow cytometry detected 23% myeloid blasts and 60% immature monocytic cells suppo rting this diagnosis. -Cytogenetics: Normal male karyotype -GeneTrails from OSH: triple negative for CEBPA , NPM1, FLT3 -Peripheral blood flow 05/27/15: Acute Myelomonocytic Leukemia (47% blasts and 30% monocyte s) -Cytogenetics: normal male karyotype -GeneTrails: NRAS mutation (40%) -Day 14 BM Bx 06/09/15: Residual AML with 50-60% marrow cellularity and approximately 50% bl asts -Plan to send telomere length and chromosomal breakage when he recovers Treatment: -Chemotherapy regimen: standard induction with 3+7 started 05/27/15 -Idarubicin 12 mg/m2 daily x 3 days -Cytarabine 100 mg/m2 CI IV daily x 7 days. -Re-induction chemotherapy regimen: HAM started 06/11/15 -Cytarabine 3000 mg/m2 over 3 hours q 12 hr x 6 doses total, day 1-3 -Pred Forte Eye drops (1%) 2 drops to each eye q 6 hours from day 1 through day 6. First d ose of Pred eye drops to be 1/2 hr before first Cytarabine dose on day 1. -Mitoxantrone 10mg/m2/day over 30 minutes IV on day 4-6 -Chemo Day: 15 (HAM) / 30 (3+7) Patient is a candidate for transplant based on Dx and prognostic feature persistent dise ase day 14. Request insurance approval for typing. HLA typing sent 05/27/15. He has two bro thers for potential donors. #Pancytopenia: secondary to acute leukemia. -supportive care #Supportive Care: Growth factor: Not indicated with this chemotherapy regimen. Labs: Continue to check CBC with diff daily Transfusion parameters: -Transfuse PRBCs for HCT <21% -Transfuse PPH for platelet count <10,000 or sooner PRN s/s bleeding. HEENT: #Parotitis likely d/t chemotherapy: Initially noted to left side on 06/[address] I mproved with a course of zosyn (06/07-06/13), vancomycin (06/09-06/12) for additional staph cov erage and supportive measures (warm compresses, sialogogues, pain control, hydration). Then occurred on right side, and reoccurred on left side. with another zosyn course (06/17-06/22 ), vancomycin (06/17-06/18). ENT thought likely cause is cytarabine with recurrence with fu rther chemo. -Continue conservative management with warm compresses, sialogogues, pain control and hydr ation -Continue oxycodone PRN Cardiovascular: Prechemotherapy Echo results on 05/18: EF 60-65 %. Left ventricular diastol ic function is normal. #Poss Hx of Pericarditis: presented to OSH on several visits to ED with CP. Echo done at [facility] x 2 both normal, no noted pericarditis or effusions. He received a course of colchicine an d is now asymptomatic. #Bradycardia likely medication induced (dexamethsone vs. Mitoxantrone): Asymptomatic. EKG 1 08/16 with sinus bradycardia, left ventricular hypertrophy. HR now in 60s, 70s, last dose of d examethasone and Mitoxantrone 06/16. Pulmonary: #Current Smoker: Smoking cessation counseling offered -Nicotine gum PRN -Consider Nicotine patch is symptoms not controlled GI: #CINV: Resolved. Scop patch stopped as did not help -Continue scheduled compazine and zofran /Renal: No acute issues Neurology: #Insomnia -Trazodone 25 mg at bedtime -Zyprexa 10mg PRN at bedtime Dermatology: #Leg lesions: increasingly indurated and tender scattered lesions (3-4 on each leg). Derm c onsulted 06/09: biopsies for H+E and cultures done 06/09: negatiave -Change bandage daily: clean site, reapply vaseline and then cover with a bandage. -sutures removed on 06/23/2015 Reproductive: #Sperm banking: completed 05/27/15 prior to chemotherapy Infectious Disease: #Screening Tests: Heb B/C - negative, HIV- negative #Parotitis:see HEENT. #Prophylaxis: Bacterial: Levaquin Fungal: Posaconazole, level adequate 06/08 at 1.1 Viral: Acyclovir PCP: Not indicated Fluid/Nutrition/Lytes: #Nutrition: Regular diet, No Kezia's yogurt or Kefir #Fluid: 1L NS PRN for PO intake <2L/day by 2200 #Lytes: Continue to check chemistries daily. Replace per supportive care protocol. Disposition: Will remain hospitalized until count recovery, plan for another 1-2 weeks. [facility] [address] [place] [address] Mailcode: [id number] [facility] [phone] Lahsonda Rodriguez MD - 06/25/2015 12:47 PM PSTHematologic Malignancies/Bone Marrow Transplant Inpatient Atte nding Progress Note: I rounded today, 06/25/2015, in conjunction with the ESTHELA. I saw the patient, reviewed the history and relevant studies and developed an assessment and plan. Subjective/Objective: pain still there on left cheek, taking iv dilaudid Q 2 hours with goo d pain control, BMs ok, no fever Please see the ESTHELA documentation from today for the details regarding the assessment and pl an. Patients Hospital Problem List: Active Hospital Problems 1) *Acute myeloid leukemia (AML), M4 (HCC) 3) Immunocompromised state (HCC) 4) Electrolyte abnormality 5) Pancytopenia due to chemotherapy (HCC) 7) Parotiditis 10) Pain of cheek Resolved Hospital Problems 11) Chemotherapy induced nausea and vomiting 12) Rhinitis 13) Multiple skin nodules AML, normal cytogenetics, Nras mutated (40%), initially likely 80% blasts in 90% marrow -> 50% blast in 50% cellular marrow, day 15 of of HAM reinduction. Recurrent- contralateral side parotitis, appreciate ID input, back on levaquin as suspect m ore chemical parotitis due to AraC. Dilaudid PRN, consider imaging if pain increasing. Lashonda Chapa MD [facility] [address] [address] [place] [address] Mailcode: [id number] [place] [address] Robyn Lainez N P - 06/24/2015 8:43 AM PST Daily NPP Note - Chemotherapy [facility] Attending: Lashonda Chapa MD PCP: Pending Pcp ADDITION Date of Admission: 05/26/2015 Hematologic Malignancy: AML Reason for admission: Work-up and Induction Chemotherapy 24 Hour Events/Current Daily Plan: -Acute Myelomonocytic Leukemia, normal cytogenetics, [facility] genetrails +NRAS (40%). S/p 3+7 i nduction. Day 14 bmbx with residual AML (50-60% cellularity with 50% blasts), now day 14 of HAM re-induction. -Pancytopenic r/t treatment: Standard transfusion parameters.Continue to administer freshes t platelet product available. S/p 1 unit of PRBCs today. -Leg lesions w/unknown etiology: work up for Sweets vs infection negative and lesions now r esolved. Sutures removed on 06/23/2015. -Bilateral parotitis likely secondary to cytarabine per ENT: Continue warm compresses, pain control, PO hydration. Discontinued Zosyn 06/22, restarted Levaquin. ID signed off 06/21. -Insomnia (noted 06/23): No relief with trazadone. Continue Zyprexa. Improved today. -Lytes: Standard electrolyte repletion parameters. No replacements required today. Subjective: Was able to get some sleep last night. Having life side cheek pain again this m orning. Objective: Last Vitals: BP 103/47 | Pulse 54 | Temp 36.8 C (98.2 F) | RR 16 | Ht 1.9 m (6' 2.8") | Wt 80.922 kg (178 lb 6.4 oz) | SpO2 99% | BMI 22.42 kg/(m^2) 24 Hour Vital Min/Max: Systolic (24hrs), Av mmHg, Min:103 mmHg, Max:138 mmHg Diastolic (24hrs), Av mmHg, Min:47 mmHg, Max:85 mmHg Pulse Min: 54 Max: 80 Temp Min: 36.4 C (97.5 F) Max: 37 C (98.6 F) Resp Min: 16 Max: 16 SpO2 Min: 99 % Max: 100 % Intake/Output Summary (Last 24 hours) at 06/24/15 0844 Last data filed at 06/24/15 0807 Gross per 24 hour Intake 3656 ml Output 1625 ml Net 2031 ml Physical Exam: General: This is a male in no acute distress. Siting up in bed. HEENT: PERRL. Sclerae anicteric. Mucosa pink and moist. Skin: Minimal petechial rash on legs. Chest: Lungs clear to auscultation bilat. CV: RRR, no murmurs. Abdomen: S/NT/ND with NABS. No HSM appreciated. Extremities: Pulses strong and equal bilaterally. No c/c/e. NeuroPsych: Alert and oriented x 3. Grossly nonfocal exam. CVC: PICC line dressing dry and intact Laboratory Results: Recent Labs 06/21/15230506/22/15235806/24/15 0003 NA 138 138 139 K 4.1 4.1 3.9 CL 105 105 107 BICARB 26 27 25 BUN 12 11 14 CR 0.85 0.95 0.82 GLU 100* 99 106* CA 8.9 9.3 8.8 AST 10 10 11 ALT 44 35 38 AP 66 66 66 TBILI 0.4 0.4 0.3 TP 6.8 7.2 6.8 ALB 3.4* 3.6 3.5 Recent Labs 06/17/15 23006/21/15 23006/22/15235806/24/15 0003 WBC 0.15* < > <0.10* 0.11* 0.16* RBC 2.31* < > 2.51* 2.57* 2.47* HB 7.2* < > 7.4* 7.8* 7.5* HCT 19.9* < > 21.2* 21.4* 20.7* PLT 20* < > 24* 15* 27* NEUTROPERC 0.0* -- -- 0.0* 0.0* LYMPHPERC 86.7* -- -- 100.0* 93.7* MONOPERC 13.3* -- -- 0.0* 6.3 BASOPERC 0.0 -- -- 0.0 0.0 EOSPERC 0.0* -- -- 0.0* 0.0* < > = values in this interval not displayed. Meds: Reviewed on rounds, see current MAR for medication list SUMMARY OF PATIENT'S HOSPITALIZATION History of Present Illness: Khurram Kelly is 24 yo M with pmhx of pericarditis and new diagnosis of acute leukemia admitted for induction and management. Had been in usual state of [facility] 03/13/15 (the night of his wedding) at which time he noted bilateral ankle pain and swellin g. This persisted and worsened intermittently, notably when hunting on 03/19/15. Then after w ork, couldn't walk well 2/2 pain and inevitably couldn't bear weight on his feet. Presented to the ED and was diagnosed with cellulitis of the RLE, given antibiotics. During evaluation patient also noted to have pancytopenia with subsequent white blood cell differential ident ifying a predominance of early appearing monocytes. On 04/18/15 began to have pleuritic anterior chest pains, low-grade fevers occasionally up to 101. Also had onset of swelling and erythema over his left ankle, seen in the [facility]' emergency room on 04/19/15. CT angiogram negative for blood clot. CBC demonstrated whi te count 15,300 with 59% monocytes, 3% immature monocytes, hemoglobin 11.8, platelets 146,00 0. He was apparently treated with antibiotics, also colchicine and anti-inflammatory agents - for possible dx of pericarditis - with complete resolution of his symptoms. After he finished the antibiotics and other medicines, the symptoms came back, repeat trip to the emergency room on 04/26/15. Repeat CT angiogram was again negative for pulmonary embo carmen or other abnormality. CBC showed white count 14,300 with 48% monocytes, 4% immature mono cytes, hemoglobin 12.8, platelets 180,000. He was again treated with the anti-inflammatory r maye colchicine, no antibiotics, again with complete resolution of symptoms. Was referred to Oncology and at that time had pleuritic anterior chest pain, low-grade feve rs. CBC demonstrated white count 17,600 with 66% monocytes, hemoglobin 11.8, platelets 115,0 00, did have 3.5% basophils. Review of his peripheral smear by pathology revealed many immat ure monocytes but no overt blasts. 05/19/15 had bone marrow bx confirming AML (see below) as well as flow cytometry. 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 -Results: 86% of blast equivalents, comprised of myeloblasts, monoblasts and promonocytes. Concurrent flow cytometry detected 23% myeloid blasts and 60% immature monocytic cells suppo rting this diagnosis. -Cytogenetics: Normal male karyotype -GeneTrails from OSH: triple negative for CEBPA , NPM1, FLT3 -Peripheral blood flow 05/27/15: Acute Myelomonocytic Leukemia (47% blasts and 30% monocyte s) -Cytogenetics: normal male karyotype -GeneTrails: NRAS mutation (40%) -Day 14 BM Bx 06/09/15: Residual AML with 50-60% marrow cellularity and approximately 50% bl asts -Plan to send telomere length and chromosomal breakage when he recovers Treatment: -Chemotherapy regimen: standard induction with 3+7 started 05/27/15 -Idarubicin 12 mg/m2 daily x 3 days -Cytarabine 100 mg/m2 CI IV daily x 7 days. -Re-induction chemotherapy regimen: HAM started 06/11/15 -Cytarabine 3000 mg/m2 over 3 hours q 12 hr x 6 doses total, day 1-3 -Pred Forte Eye drops (1%) 2 drops to each eye q 6 hours from day 1 through day 6. First d ose of Pred eye drops to be 1/2 hr before first Cytarabine dose on day 1. -Mitoxantrone 10mg/m2/day over 30 minutes IV on day 4-6 -Chemo Day: 14 (HAM) / (3+7) Patient is a candidate for transplant based on Dx and prognostic feature persistent dise ase day 14. Request insurance approval for typing. HLA typing sent 05/27/15. He has two bro thers for potential donors. #Pancytopenia: secondary to acute leukemia. -supportive care #Supportive Care: Growth factor: Not indicated with this chemotherapy regimen. Labs: Continue to check CBC with diff daily Transfusion parameters: -Transfuse PRBCs for HCT <21% -Transfuse PPH for platelet count <10,000 or sooner PRN s/s bleeding. HEENT: #Parotitis likely d/t chemotheray: Initially noted to left side on 06/[address]. Im proved with a course of zosyn (06/07-06/13), vancomycin (06/09-06/12) for additional staph cove rage and supportive measures (warm compresses, sialogogues, pain control, hydration). Now wi th right sided parotitis noted as on 06/16, improved with another zosyn course (06/17-06/22), vancomycin (06/17-06/18). -Continue conservative management with warm compresses, sialogogues, pain control and hydr ation -Continue oxycodone PRN Cardiovascular: Prechemotherapy Echo results on 05/18: EF 60-65 %. Left ventricular diastol ic function is normal. #Poss Hx of Pericarditis: presented to OSH on several visits to ED with CP. Echo done at [facility] x 2 both normal, no noted pericarditis or effusions. He received a course of colchicine an d is now asymptomatic. #Bradycardia likely medication induced (dexamethsone vs. Mitoxantrone): Asymptomatic. EKG 1 08/16 with sinus bradycardia, left ventricular hypertrophy. HR now in 60s, 70s, last dose of d examethasone and Mitoxantrone 06/16. Pulmonary: #Current Smoker: Smoking cessation counseling offered -Nicotine gum PRN -Consider Nicotine patch is symptoms not controlled GI: #CINV: Resolved. Scop patch stopped as did not help -Continue scheduled compazine and zofran /Renal: No acute issues Neurology: #Insomnia -Trazodone 25 mg at bedtime -Zyprexa 10mg PRN at bedtime Dermatology: #Leg lesions: increasingly indurated and tender scattered lesions (3-4 on each leg). Derm c onsulted 06/09: biopsies for H+E and cultures done 06/09: negatiave -Change bandage daily: clean site, reapply vaseline and then cover with a bandage. -sutures removed on 06/23/2015 Reproductive: #Sperm banking: completed 05/27/15 prior to chemotherapy Infectious Disease: #Screening Tests: Heb B/C - negative, HIV- negative #Parotitis: Initially noted to lefty side on 06/[address]. Improved with a course o f zosyn (06/07-06/13), vancomycin 06/09-06/12 for additional staph coverage and supportive jagdeep ures (warm compresses, sialogogues, pain control, hydration). Now with right sided parotitis noted as on 06/16, improved with another zosyn course (06/17-06/22), vancomycin (06/17-06/18 ). -Continue conservative management with warm compresses, sialogogues, pain control and hydr ation -Continue oxycodone PRN #Prophylaxis: Bacterial: Levaquin Fungal: Posaconazole, level adequate 06/08 at 1.1 Viral: Acyclovir PCP: Not indicated Fluid/Nutrition/Lytes: #Nutrition: Regular diet, No Kezia's yogurt or Kefir #Fluid: 1L NS PRN for PO intake <2L/day by 2200 #Lytes: Continue to check chemistries daily. Replace per supportive care protocol. Disposition: Will remain hospitalized until count recovery, plan for another 1-2 weeks. REBECCA Pérez NP [address] Mailcode: [place] [address] Lashonda Rodriguez M D - 06/24/2015 8:31 AM PSTHematologic Malignancies/Bone Marrow Transplant Inpatient Attendi Progress Note: I rounded today, 06/24/2015, in conjunction with the ESTHELA. I saw the patient, reviewed the history and relevant studies and developed an assessment and plan. Subjective/Objective: today more discomfort on left than right, teeth do not hurt Please see the ESTHELA documentation from today for the details regarding the assessment and pl an. Patients Hospital Problem List: Active Hospital Problems 1) *Acute myeloid leukemia (AML), M4 (HCC) 3) Immunocompromised state (HCC) 4) Electrolyte abnormality 5) Pancytopenia due to chemotherapy (HCC) 7) Parotiditis Resolved Hospital Problems 10) Chemotherapy induced nausea and vomiting 11) Rhinitis 12) Multiple skin nodules AML, normal cytogenetics, Nras mutated (40%), initially likely 80% blasts in 90% marrow -> 50% blast in 50% cellular marrow, day 14 of of HAM reinduction. Recurrent- contralateral side parotitis, appreciate ID input, back on levaquin as suspect m ore chemical parotitis due to AraC. Oxycodone PRN. Lashonda Chapa MD [facility] Mailcode: [facility] [place] [address] Lashonda Rodriguez MD - 1 08/24/2014 5:51 PM PSTHematologic Malignancies/Bone Marrow Transplant Inpatient Attending Saturnino vazquez Note: I rounded today, 06/23/2015, in conjunction with the ESTHELA. I saw the patient, reviewed the history and relevant studies and developed an assessment and plan. Subjective/Objective: some discomfort on both sides when chewing but well responds to oxyco done Please see the ESTHELA documentation from today for the details regarding the assessment and pl an. 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 Recurrent- contralateral side parotitis, appreciate ID input, back on levaquin as suspect m ore chemical parotitis due to AraC. Oxycodone PRN. Resolving. Skin nodules resolved. Lashonda Chapa MD [facility] [address] [facility] Mailcode: [place] [address] Robyn Lainez N P - 06/23/2015 11:30 AM PST Daily NPP Note - Chemotherapy [facility] Attending: Lashonda Chapa MD PCP: Pending Pcp ADDITION Date of Admission: 05/26/2015 Hematologic Malignancy: AML Reason for admission: Work-up and Induction Chemotherapy 24 Hour Events/Current Daily Plan: -Acute Myelomonocytic Leukemia, normal cytogenetics, [facility] genetrails +NRAS (40%). S/p 3+7 i nduction. Day 14 bmbx with residual AML (50-60% cellularity with 50% blasts), now day 13 of HAM re-induction. -Pancytopenic r/t treatment: Standard transfusion parameters.Continue to administer freshes t platelet product available. -Leg lesions w/unknown etiology: work up for Sweets vs infection negative and lesions now i mproved. Continue wound care as below and sutures removed on 06/23/2015. -Right side parotitis (recently had left sided parotitis): now right sided parotitis likely secondary to cytarabine per ENT. Continue warm compresses, pain control, PO hydration. Disc ontinued Zosyn 06/22, restarted Levaquin. ID signed off 06/21. -Insomnia (noted 06/23): No relief with trazadone. Ordered zyprexa 06/23. -Lytes: Standard electrolyte repletion parameters. No replacements required today. Subjective: Having trouble sleeping despite sleep aid and walking walking the unit before b ed. Objective: Last Vitals: BP 110/62 | Pulse 90 | Temp 37 C (98.6 F) | RR 16 | Ht 1.9 m (6' 2.8") | W t 81.647 kg (180 lb) | SpO2 99% | BMI 22.62 kg/(m^2) 24 Hour Vital Min/Max: Systolic (24hrs), Av mmHg, Min:107 mmHg, Max:122 mmHg Diastolic (24hrs), Av mmHg, Min:57 mmHg, Max:78 mmHg Pulse Min: 57 Max: 90 Temp Min: 36.4 C (97.5 F) Max: 37 C (98.6 F) Resp Min: 16 Max: 16 SpO2 Min: 99 % Max: 100 % Intake/Output Summary (Last 24 hours) at 06/23/15 1130 Last data filed at 06/23/15 1000 Gross per 24 hour Intake 2815 ml Output 2300 ml Net 515 ml Physical Exam: General: This is a male in no acute distress. Sitting in bed. HEENT: PERRL. Sclerae anicteric. Mucosa pink and moist. Skin: Minimal petechial rash on legs. Right leg biopsy site without s/sx infection. Chest: Lungs clear to auscultation bilat. CV: RRR, no murmurs. Abdomen: S/NT/ND with NABS. No HSM appreciated. Extremities: Pulses strong and equal bilaterally. No c/c/e. NeuroPsych: Alert and oriented x 3. Grossly nonfocal exam. CVC: PICC line dressing dry and intact Laboratory Results: Recent Labs 06/20/15 2301 06/21/15 2306 06/22/15 2359 NA 137 138 138 K 4.2 4.1 4.1 CL 106 105 105 BICARB 27 26 27 BUN 11 12 11 CR 0.82 0.85 0.95 GLU 102* 100* 99 CA 8.6 8.9 9.3 AST 14 10 10 ALT 44 44 35 AP 64 66 66 TBILI 0.5 0.4 0.4 TP 6.8 6.8 7.2 ALB 3.5 3.4* 3.6 Recent Labs 06/11/15 2330 06/17/15 2300 06/20/15 2301 06/21/15 2306 06/22/15 2359 WBC 0.27* < > 0.15* < > 0.13* <0.10* 0.11* RBC 2.83* < > 2.31* < > 2.69* 2.51* 2.57* HB 8.7* < > 7.2* < > 8.2* 7.4* 7.8* HCT 24.9* < > 19.9* < > 22.4* 21.2* 21.4* PLT 24* < > 20* < > 36* 24* 15* NEUTROPERC -- -- 0.0* -- -- -- 0.0* LYMPHPERC -- -- 86.7* -- -- -- 100.0* MONOPERC -- -- 13.3* -- -- -- 0.0* BASOPERC -- -- 0.0 -- -- -- 0.0 EOSPERC -- -- 0.0* -- -- -- 0.0* < > = values in this interval not displayed. Meds: Reviewed on rounds, see current MAR for medication list SUMMARY OF PATIENT'S HOSPITALIZATION History of Present Illness: Khurram Kelly is 24 yo M with pmhx of pericarditis and new diagnosis of acute leukemia admitted for induction and management. Had been in usual state of [facility] 03/13/15 (the night of his wedding) at which time he noted bilateral ankle pain and swellin g. This persisted and worsened intermittently, notably when hunting on 03/19/15. Then after w ork, couldn't walk well 2/2 pain and inevitably couldn't bear weight on his feet. Presented to the ED and was diagnosed with cellulitis of the RLE, given antibiotics. During evaluation patient also noted to have pancytopenia with subsequent white blood cell differential ident ifying a predominance of early appearing monocytes. On 04/18/15 began to have pleuritic anterior chest pains, low-grade fevers occasionally up to 101. Also had onset of swelling and erythema over his left ankle, seen in the [facility]' emergency room on 04/19/15. CT angiogram negative for blood clot. CBC demonstrated whi te count 15,300 with 59% monocytes, 3% immature monocytes, hemoglobin 11.8, platelets 146,00 0. He was apparently treated with antibiotics, also colchicine and anti-inflammatory agents - for possible dx of pericarditis - with complete resolution of his symptoms. After he finished the antibiotics and other medicines, the symptoms came back, repeat trip to the emergency room on 04/26/15. Repeat CT angiogram was again negative for pulmonary embo carmen or other abnormality. CBC showed white count 14,300 with 48% monocytes, 4% immature mono cytes, hemoglobin 12.8, platelets 180,000. He was again treated with the anti-inflammatory r maye colchicine, no antibiotics, again with complete resolution of symptoms. Was referred to Oncology and at that time had pleuritic anterior chest pain, low-grade feve rs. CBC demonstrated white count 17,600 with 66% monocytes, hemoglobin 11.8, platelets 115,0 00, did have 3.5% basophils. Review of his peripheral smear by pathology revealed many immat ure monocytes but no overt blasts. 05/19/15 had bone marrow bx confirming AML (see below) as well as flow cytometry. 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 -Results: 86% of blast equivalents, comprised of myeloblasts, monoblasts and promonocytes. Concurrent flow cytometry detected 23% myeloid blasts and 60% immature monocytic cells suppo rting this diagnosis. -Cytogenetics: Normal male karyotype -GeneTrails from [facility]: triple negative for CEBPA , NPM1, FLT3 -Peripheral blood flow 05/27/15: Acute Myelomonocytic Leukemia (47% blasts and 30% monocyte s) -Cytogenetics: normal male karyotype -GeneTrails: NRAS mutation (40%) -Day 14 BM Bx 06/09/15: Residual AML with 50-60% marrow cellularity and approximately 50% bl asts -Plan to send telomere length and chromosomal breakage when he recovers Treatment: -Chemotherapy regimen: standard induction with 3+7 started 05/27/15 -Idarubicin 12 mg/m2 daily x 3 days -Cytarabine 100 mg/m2 CI IV daily x 7 days. -Re-induction chemotherapy regimen: HAM started 06/11/15 -Cytarabine 3000 mg/m2 over 3 hours q 12 hr x 6 doses total, day 1-3 -Pred Forte Eye drops (1%) 2 drops to each eye q 6 hours from day 1 through day 6. First d ose of Pred eye drops to be 1/2 hr before first Cytarabine dose on day 1. -Mitoxantrone 10mg/m2/day over 30 minutes IV on day 4-6 -Chemo Day: 13 (HAM) / 28 (3+7) Patient is a candidate for transplant based on Dx and prognostic feature persistent dise ase day 14. Request insurance approval for typing. HLA typing sent 05/27/15. He has two bro thers for potential donors. #Pancytopenia: secondary to acute leukemia. -supportive care #Supportive Care: Growth factor: Not indicated with this chemotherapy regimen. Labs: Continue to check CBC with diff daily Transfusion parameters: -Transfuse PRBCs for HCT <21% -Transfuse PPH for platelet count <10,000 or sooner PRN s/s bleeding. HEENT: #Parotitis: Initially noted to lefty side on 06/[address]. Improved with a course o f zosyn (06/07-06/13), vancomycin 06/09-06/12 for additional staph coverage and supportive jagdeep ures (warm compresses, sialogogues, pain control, hydration). Now with right sided parotitis noted as on 06/16. -Continue conservative management with warm compresses, sialogogues, pain control and hydr ation -Zosyn (06/17-06/22) Discontinued with symptom improvement and now one week post chemother apy (likely cause of parotitis) -Vancomycin (06/17-06/18) No indication at this time, consider re-starting if symptoms wor sen. -Continue oxycodone PRN Cardiovascular: Prechemotherapy Echo results on 05/18: EF 60-65 %. Left ventricular diastol ic function is normal. #Poss Hx of Pericarditis: presented to OSH on several visits to ED with CP. Echo done at [facility] x 2 both normal, no noted pericarditis or effusions. He received a course of colchicine an d is now asymptomatic. #Bradycardia likely medication induced (dexamethsone vs. Mitoxantrone): Asymptomatic. EKG 1 08/16 with sinus bradycardia, left ventricular hypertrophy. HR now in 60s, 70s, last dose of d examethasone and Mitoxantrone 06/16. Pulmonary: #Current Smoker: Smoking cessation counseling offered -Nicotine gum PRN -Consider Nicotine patch is symptoms not controlled GI: #CINV: Resolved. Scop patch stopped as did not help -Continue scheduled compazine and zofran /Renal: No acute issues Neurology: #Insomnia -Trazodone 25 mg at bedtime -Zyprexa PRN (added 06/23) Dermatology: #Leg lesions: increasingly indurated and tender scattered lesions (3-4 on each leg). Derm c onsulted 06/09: biopsies for H+E and cultures done 06/09: negatiave -Change bandage daily: clean site, reapply vaseline and then cover with a bandage. -sutures removed on 06/23/2015 Reproductive: #Sperm banking: completed 05/27/15 prior to chemotherapy Infectious Disease: #Screening Tests: Heb B/C - negative, HIV- negative #Parotitis: Initially noted to lefty side on 06/[address]. Improved with a course o f zosyn (06/07-06/13), vancomycin 06/09-06/12 for additional staph coverage and supportive jagdeep ures (warm compresses, sialogogues, pain control, hydration). Now with right sided parotitis noted as on 06/16. -Continue conservative management with warm compresses, sialogogues, pain control and hydr ation -Zosyn (06/17-06/22) Discontinued with symptom improvement and now one week post chemother apy (likely cause of parotitis) -Vancomycin (06/17-06/18) No indication at this time, consider re-starting if symptoms wor sen. -Continue oxycodone PRN #Prophylaxis: Bacterial: Levaquin Fungal: Posaconazole, level adequate 06/08 at 1.1 Viral: Acyclovir PCP: Not indicated Fluid/Nutrition/Lytes: #Nutrition: Regular diet, No Kezia's yogurt or Kefir #Fluid: 1L NS PRN for PO intake <2L/day by 2200 #Lytes: Continue to check chemistries daily. Replace per supportive care protocol. Disposition: Will remain hospitalized until count recovery, plan for another 1-2 weeks. REBECCA Pérez NP [place] [address] [place] [address] Mailcode: [place] [phone] Lashonda Rodriguez M D - 06/22/2015 12:15 PM PSTHematologic Malignancies/Bone Marrow Transplant Inpatient Attendi Progress Note: I rounded today, 06/22/2015, in conjunction with the ESTHELA. I saw the patient, reviewed the history and relevant studies and developed an assessment and plan. Subjective/Objective: pain much better, almost normal R cheek Please see the ESTHELA documentation from today for the details regarding the assessment and pl an. Patients Hospital Problem List: Active Hospital Problems 1) *Acute myeloid leukemia (AML), M4 (HCC) 3) Immunocompromised state (HCC) 4) Electrolyte abnormality 5) Pancytopenia due to chemotherapy (HCC) 7) Parotiditis 8) Multiple skin nodules Resolved Hospital Problems 11) Chemotherapy induced nausea and vomiting 12) Rhinitis AML, normal cytogenetics, Nras mutated (40%), initially likely 80% blasts in 90% marrow -> 50% blast in 50% cellular marrow, day 12 of of HAM reinduction. Recurrent- contralateral side parotitis, appreciate ID input, back on levaquin as suspect m ore chemical parotitis due to AraC. Oxycodone PRN. Resolving. Lashonda Chapa MD [place] [id number] Mailcode: Kp4 [place] [id number] eRobyn stevens, N P - 06/22/2015 9:11 AM PST Daily NPP Note - Chemotherapy [facility] Attending: Lashonda Chapa MD PCP: Pending Pcp ADDITION Date of Admission: 05/26/2015 Hematologic Malignancy: AML Reason for admission: Work-up and Induction Chemotherapy 24 Hour Events/Current Daily Plan: -Acute Myelomonocytic Leukemia, normal cytogenetics, [facility] genetrails +NRAS (40%). S/p 3+7 i nduction. Day 14 bmbx with residual AML (50-60% cellularity with 50% blasts), now day 12 of HAM re-induction. -Pancytopenic r/t treatment: Standard transfusion parameters.Continue to administer freshes t platelet product available. -Leg lesions w/unknown etiology: work up for Sweets vs infection negative and lesions now i mproved. Continue wound care as below and sutures should be removed on 06/23/2015. -Right side parotitis (recently had left sided parotitis): now right sided parotitis likely secondary to cytarabine per ENT. Continue warm compresses, pain control, PO hydration. Disc ontinued Zosyn 06/22, restarted Levaquin. ID signed off 06/21. -Lytes: Standard electrolyte repletion parameters. No replacements required today. Subjective: Feeling well. Walking 3 miles daily and drinking 4L of fluid. Objective: Last Vitals: BP 130/67 | Pulse 68 | Temp 36.9 C (98.4 F) | RR 16 | Ht 1.9 m (6' 2.8") | Wt 82.645 kg (182 lb 3.2 oz) | SpO2 100% | BMI 22.89 kg/(m^2) 24 Hour Vital Min/Max: Systolic (24hrs), Av mmHg, Min:108 mmHg, Max:131 mmHg Diastolic (24hrs), Av mmHg, Min:60 mmHg, Max:80 mmHg Pulse Min: 67 Max: 81 Temp Min: 36.8 C (98.2 F) Max: 37.3 C (99.1 F) Resp Min: 16 Max: 18 SpO2 Min: 99 % Max: 100 % Intake/Output Summary (Last 24 hours) at 06/22/15 0911 Last data filed at 06/22/15 0600 Gross per 24 hour Intake 4123 ml Output 4205 ml Net -82 ml Physical Exam: General: This is a male in no acute distress. Sitting up in bed. HEENT: PERRL. Sclerae anicteric. Mucosa pink and moist. Skin: Minimal petechial rash on legs. Right leg biopsy site without s/sx infection. Chest: Lungs clear to auscultation bilat. CV: RRR, no murmurs. Abdomen: S/NT/ND with NABS. No HSM appreciated. Extremities: Pulses strong and equal bilaterally. No c/c/e. NeuroPsych: Alert and oriented x 3. Grossly nonfocal exam. CVC: PICC line dressing dry and intact Laboratory Results: Recent Labs 06/19/15232306/20/15 23006/21/15 230 NA 138 137 138 K 3.9 4.2 4.1 CL 106 106 105 BICARB 26 27 26 BUN 13 11 12 CR 0.86 0.82 0.85 GLU 96 102* 100* CA 8.8 8.6 8.9 AST 14 14 10 ALT 48 44 44 AP 57 64 66 TBILI 0.3 0.5 0.4 TP 6.2* 6.8 6.8 ALB 3.4* 3.5 3.4* Recent Labs 06/11/15 2330 06/17/15 2300 06/19/15232306/20/15 23006/21/15 2306 WBC 0.27* < > 0.15* < > <0.10* 0.13* <0.10* RBC 2.83* < > 2.31* < > 2.36* 2.69* 2.51* HB 8.7* < > 7.2* < > 7.3* 8.2* 7.4* HCT 24.9* < > 19.9* < > 19.8* 22.4* 21.2* PLT 24* < > 20* < > 9* 36* 24* NEUTROPERC -- -- 0.0* -- -- -- -- LYMPHPERC -- -- 86.7* -- -- -- -- MONOPERC -- -- 13.3* -- -- -- -- BASOPERC -- -- 0.0 -- -- -- -- EOSPERC -- -- 0.0* -- -- -- -- < > = values in this interval not displayed. Meds: Reviewed on rounds, see current MAR for medication list SUMMARY OF PATIENT'S HOSPITALIZATION History of Present Illness: Khurram Kelly is 24 yo M with pmhx of pericarditis and new diagnosis of acute leukemia admitted for induction and management. Had been in usual state of [facility] 03/13/15 (the night of his wedding) at which time he noted bilateral ankle pain and swellin g. This persisted and worsened intermittently, notably when hunting on 03/19/15. Then after w ork, couldn't walk well 2/2 pain and inevitably couldn't bear weight on his feet. Presented to the ED and was diagnosed with cellulitis of the RLE, given antibiotics. During evaluation patient also noted to have pancytopenia with subsequent white blood cell differential ident ifying a predominance of early appearing monocytes. On 04/18/15 began to have pleuritic anterior chest pains, low-grade fevers occasionally up to 101. Also had onset of swelling and erythema over his left ankle, seen in the [facility]' emergency room on 04/19/15. CT angiogram negative for blood clot. CBC demonstrated whi te count 15,300 with 59% monocytes, 3% immature monocytes, hemoglobin 11.8, platelets 146,00 0. He was apparently treated with antibiotics, also colchicine and anti-inflammatory agents - for possible dx of pericarditis - with complete resolution of his symptoms. After he finished the antibiotics and other medicines, the symptoms came back, repeat trip to the emergency room on 04/26/15. Repeat CT angiogram was again negative for pulmonary embo carmen or other abnormality. CBC showed white count 14,300 with 48% monocytes, 4% immature mono cytes, hemoglobin 12.8, platelets 180,000. He was again treated with the anti-inflammatory r maye colchicine, no antibiotics, again with complete resolution of symptoms. Was referred to Oncology and at that time had pleuritic anterior chest pain, low-grade feve rs. CBC demonstrated white count 17,600 with 66% monocytes, hemoglobin 11.8, platelets 115,0 00, did have 3.5% basophils. Review of his peripheral smear by pathology revealed many immat ure monocytes but no overt blasts. 05/19/15 had bone marrow bx confirming AML (see below) as well as flow cytometry. Hospitalization History: Hematology: #AML Pertinent Diagnostics: -BM Bx done at OSH 05/19/15, slides reviewed by [facility] and c/w Acute Myelomonocytic Leukemia in a 90% cellular marrow. -Results: 86% of blast equivalents, comprised of myeloblasts, monoblasts and promonocytes. Concurrent flow cytometry detected 23% myeloid blasts and 60% immature monocytic cells suppo rting this diagnosis. -Cytogenetics: Normal male karyotype -GeneTrails from OSH: triple negative for CEBPA , NPM1, FLT3 -Peripheral blood flow 05/27/15: Acute Myelomonocytic Leukemia (47% blasts and 30% monocyte s) -Cytogenetics: normal male karyotype -GeneTrails: NRAS mutation (40%) -Day 14 BM Bx 06/09/15: Residual AML with 50-60% marrow cellularity and approximately 50% bl asts -Plan to send telomere length and chromosomal breakage when he recovers Treatment: -Chemotherapy regimen: standard induction with 3+7 started 05/27/15 -Idarubicin 12 mg/m2 daily x 3 days -Cytarabine 100 mg/m2 CI IV daily x 7 days. -Re-induction chemotherapy regimen: [facility] started 06/11/15 -Cytarabine 3000 mg/m2 over 3 hours q 12 hr x 6 doses total, day 1-3 -Pred Forte Eye drops (1%) 2 drops to each eye q 6 hours from day 1 through day 6. First d ose of Pred eye drops to be 1/2 hr before first Cytarabine dose on day 1. -Mitoxantrone 10mg/m2/day over 30 minutes IV on day 4-6 -Chemo Day: (HAM) / (3+7) Patient is a candidate for transplant based on Dx and prognostic feature persistent dise ase day 14. Request insurance approval for typing. HLA typing sent 05/27/15. He has two bro thers for potential donors. #Pancytopenia: secondary to acute leukemia. -supportive care #Supportive Care: Growth factor: Not indicated with this chemotherapy regimen. Labs: Continue to check CBC with diff daily Transfusion parameters: -Transfuse PRBCs for HCT <21% -Transfuse PPH for platelet count <10,000 or sooner PRN s/s bleeding. HEENT: #Parotitis: Initially noted to lefty side on 06/[address]. Improved with a course o f zosyn (06/07-06/13), vancomycin 06/09-06/12 for additional staph coverage and supportive jagdeep ures (warm compresses, sialogogues, pain control, hydration). Now with right sided parotitis noted as on 06/16. -Continue conservative management with warm compresses, sialogogues, pain control and hydr ation -Zosyn (06/17-06/22) Discontinued with symptom improvement and now one week post chemother apy (likely cause of parotitis) -Vancomycin (06/17-06/18) No indication at this time, consider re-starting if symptoms wor sen. -Continue oxycodone PRN Cardiovascular: Prechemotherapy Echo results on 05/18: EF 60-65 %. Left ventricular diastol ic function is normal. #Poss Hx of Pericarditis: presented to OSH on several visits to ED with CP. Echo done at [facility] x 2 both normal, no noted pericarditis or effusions. He received a course of colchicine an d is now asymptomatic. #Bradycardia likely medication induced (dexamethsone vs. Mitoxantrone): Asymptomatic. EKG 1 08/16 with sinus bradycardia, left ventricular hypertrophy. HR now in 60s, 70s, last dose of d examethasone and Mitoxantrone 06/16. Pulmonary: #Current Smoker: Smoking cessation counseling offered -Nicotine gum PRN -Consider Nicotine patch is symptoms not controlled GI: #CINV: Resolved. Scop patch stopped as did not help -Continue scheduled compazine and zofran /Renal: No acute issues Neurology: #Insomnia -Trazodone 25 mg at bedtime Dermatology: #Leg lesions: increasingly indurated and tender scattered lesions (3-4 on each leg). Derm c onsulted 06/09: biopsies for H+E and cultures done 06/09: negatiave -Change bandage daily: clean site, reapply vaseline and then cover with a bandage. -sutures should be removed on 06/23/2015. Reproductive: #Sperm banking: completed 05/27/15 prior to chemotherapy Infectious Disease: #Screening Tests: Heb B/C - negative, HIV- negative #Parotitis: Initially noted to lefty side on 06/[address]. Improved with a course o f zosyn (06/07-06/13), vancomycin 06/09-06/12 for additional staph coverage and supportive jagdeep ures (warm compresses, sialogogues, pain control, hydration). Now with right sided parotitis noted as on 06/16. -Continue conservative management with warm compresses, sialogogues, pain control and hydr ation -Zosyn (06/17-06/22) Discontinued with symptom improvement and now one week post chemother apy (likely cause of parotitis) -Vancomycin (06/17-06/18) No indication at this time, consider re-starting if symptoms wor sen. -Continue oxycodone PRN #Prophylaxis: Bacterial: Levaquin Fungal: Posaconazole, level adequate 06/08 at 1.1 Viral: Acyclovir PCP: Not indicated Fluid/Nutrition/Lytes: #Nutrition: Regular diet, No Kezia's yogurt or Kefir #Fluid: 1L NS PRN for PO intake <2L/day by 2200 #Lytes: Continue to check chemistries daily. Replace per supportive care protocol. Disposition: Will remain hospitalized until count recovery, plan for another 1-2 weeks. REBECCA Pérez NP [address] Mailcode: [id number] [place] [address] Lashonda Rodriguez M D - 06/21/2015 10:50 AM PSTHematologic Malignancies/Bone Marrow Transplant Inpatient Attendi margoth Progress Note: I rounded today, 06/21/2015, in conjunction with the ESTHELA. I saw the patient, reviewed the history and relevant studies and developed an assessment and plan. Subjective/Objective: pain R cheek under good control with current meds, no increase in nabeel n, or swellinhg Please see the ESTHELA documentation from today for the details regarding the assessment and pl an. Patients Hospital Problem List: Active Hospital Problems 1) *Acute myeloid leukemia (AML), M4 (HCC) 3) Immunocompromised state (HCC) 4) Electrolyte abnormality 5) Pancytopenia due to chemotherapy (HCC) 7) Parotiditis 8) Multiple skin nodules Resolved Hospital Problems 11) Chemotherapy induced nausea and vomiting 12) Rhinitis AML, normal cytogenetics, Nras mutated (40%), initially likely 80% blasts in 90% marrow -> 50% blast in 50% cellular marrow, day 11 of of HAM reinduction. Recurrent- contralateral side parotitis, appreciate ID input, on zosyn, ENT consult. Suspec edward due to AraC. Oxycodone PRN. Lashonda Chapa MD [facility] [id number] [facility] Mailcode: [facility] [place], [place] [id number] obyn Contreras N P - 06/21/2015 10:03 AM PST Daily NPP Note - Chemotherapy Admit [facility] Attending: Lashonda Chapa MD PCP: Pending Pcp ADDITION Date of Admission: 05/26/2015 Hematologic Malignancy: AML Reason for admission: Work-up and Induction Chemotherapy 24 Hour Events/Current Daily Plan: -Acute Myelomonocytic Leukemia, normal cytogenetics, [facility] genetrails +NRAS (40%). S/p 3+7 i nduction. Day 14 bmbx with residual AML (50-60% cellularity with 50% blasts), now day 11 of HAM re-induction. -Pancytopenic r/t treatment: Standard transfusion parameters.Continue to administer freshes t platelet product available. -Leg lesions w/unknown etiology: work up for Sweets vs infection negative and lesions now i mproved. Continue wound care as below and sutures should be removed on 06/23/2015. -Right side parotitis: recently had left sided parotitis, now right sided parotitis likely secondary to cytarabine per ENT. Continue warm compresses, pain control, PO hydration. Per I D re-started Zosyn 06/17, no indication for Vancomycin at this time. -Lytes: Standard electrolyte repletion parameters. No replacements required today. Subjective: Feeling well this morning. Right cheek with mild tenderness however resolves wi th pain medications. Objective: Last Vitals: BP 110/60 | Pulse 81 | Temp 36.9 C (98.4 F) | RR 17 | Ht 1.9 m (6' 2.8") | Wt 84.052 kg (185 lb 4.8 oz) | SpO2 99% | BMI 23.28 kg/(m^2) 24 Hour Vital Min/Max: Systolic (24hrs), Av mmHg, Min:110 mmHg, Max:129 mmHg Diastolic (24hrs), Av mmHg, Min:60 mmHg, Max:69 mmHg Pulse Min: 58 Max: 81 Temp Min: 36.4 C (97.5 F) Max: 37 C (98.6 F) Resp Min: 16 Max: 18 SpO2 Min: 99 % Max: 100 % Intake/Output Summary (Last 24 hours) at 06/21/15 1003 Last data filed at 06/21/15 0722 Gross per 24 hour Intake 3295 ml Output 3055 ml Net 240 ml Physical Exam: General: This is a male in no acute distress. Walking in room. HEENT: PERRL. Sclerae anicteric. Mucosa pink and moist. Right cheek with edema and mild t enderness. Skin: Minimal petechial rash on legs. Right leg biopsy site without s/sx infection. Chest: Lungs clear to auscultation bilat. CV: RRR, no murmurs. Abdomen: S/NT/ND with NABS. No HSM appreciated. Extremities: Pulses strong and equal bilaterally. No c/c/e. NeuroPsych: Alert and oriented x 3. Grossly nonfocal exam. CVC: PICC line dressing dry and intact Laboratory Results: Recent Labs 06/19/15 0003 06/19/15 2324 06/20/15 2301 NA 140 138 137 K 3.8 3.9 4.2 CL 109* 106 106 BICARB 26 26 27 BUN 14 13 11 CR 0.88 0.86 0.82 GLU 103* 96 102* CA 8.1* 8.8 8.6 AST 16 14 14 ALT 57 48 44 AP 52* 57 64 TBILI 0.4 0.3 0.5 TP 5.9* 6.2* 6.8 ALB 3.3* 3.4* 3.5 Recent Labs 06/11/15 2330 06/17/15 2300 06/19/15 0003 06/19/15 2324 06/20/15 2301 WBC 0.27* < > 0.15* 0.13* <0.10* 0.13* RBC 2.83* < > 2.31* 2.55* 2.36* 2.69* HB 8.7* < > 7.2* 7.8* 7.3* 8.2* HCT 24.9* < > 19.9* 21.9* 19.8* 22.4* PLT 24* < > 20* 17* 9* 36* NEUTROPERC -- -- 0.0* -- -- -- LYMPHPERC -- -- 86.7* -- -- -- MONOPERC -- -- 13.3* -- -- -- BASOPERC -- -- 0.0 -- -- -- EOSPERC -- -- 0.0* -- -- -- < > = values in this interval not displayed. Meds: Reviewed on rounds, see current MAR for medication list SUMMARY OF PATIENT'S HOSPITALIZATION History of Present Illness: Khurram Kelly is 24 yo M with pmhx of pericarditis and new diagnosis of acute leukemia admitted for induction and management. Had been in usual state of [facility] 03/13/15 (the night of his wedding) at which time he noted bilateral ankle pain and swellin g. This persisted and worsened intermittently, notably when hunting on 03/19/15. Then after w ork, couldn't walk well 2/2 pain and inevitably couldn't bear weight on his feet. Presented to the ED and was diagnosed with cellulitis of the RLE, given antibiotics. During evaluation patient also noted to have pancytopenia with subsequent white blood cell differential ident ifying a predominance of early appearing monocytes. On 04/18/15 began to have pleuritic anterior chest pains, low-grade fevers occasionally up to 101. Also had onset of swelling and erythema over his left ankle, seen in the [facility]'s emergency room on 04/19/15. CT angiogram negative for blood clot. CBC demonstrated whi te count 15,300 with 59% monocytes, 3% immature monocytes, hemoglobin 11.8, platelets 146,00 0. He was apparently treated with antibiotics, also colchicine and anti-inflammatory agents - for possible dx of pericarditis - with complete resolution of his symptoms. After he finished the antibiotics and other medicines, the symptoms came back, repeat trip to the emergency room on 04/26/15. Repeat CT angiogram was again negative for pulmonary embo carmen or other abnormality. CBC showed white count 14,300 with 48% monocytes, 4% immature mono cytes, hemoglobin 12.8, platelets 180,000. He was again treated with the anti-inflammatory r maye colchicine, no antibiotics, again with complete resolution of symptoms. Was referred to Oncology and at that time had pleuritic anterior chest pain, low-grade feve rs. CBC demonstrated white count 17,600 with 66% monocytes, hemoglobin 11.8, platelets 115,0 00, did have 3.5% basophils. Review of his peripheral smear by pathology revealed many immat ure monocytes but no overt blasts. 05/19/15 had bone marrow bx confirming AML (see below) as well as flow cytometry. 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 -Results: 86% of blast equivalents, comprised of myeloblasts, monoblasts and promonocytes. Concurrent flow cytometry detected 23% myeloid blasts and 60% immature monocytic cells suppo rting this diagnosis. -Cytogenetics: Normal male karyotype -GeneTrails from OSH: triple negative for CEBPA , NPM1, FLT3 -Peripheral blood flow 05/27/15: Acute Myelomonocytic Leukemia (47% blasts and 30% monocyte s) -Cytogenetics: normal male karyotype -GeneTrails: NRAS mutation (40%) -Day 14 BM Bx 06/09/15: Residual AML with 50-60% marrow cellularity and approximately 50% bl asts -Plan to send telomere length and chromosomal breakage when he recovers Treatment: -Chemotherapy regimen: standard induction with 3+7 started 05/27/15 -Idarubicin 12 mg/m2 daily x 3 days -Cytarabine 100 mg/m2 CI IV daily x 7 days. -Re-induction chemotherapy regimen: HAM started 06/11/15 -Cytarabine 3000 mg/m2 over 3 hours q 12 hr x 6 doses total, day 1-3 -Pred Forte Eye drops (1%) 2 drops to each eye q 6 hours from day 1 through day 6. First d ose of Pred eye drops to be 1/2 hr before first Cytarabine dose on day 1. -Mitoxantrone 10mg/m2/day over 30 minutes IV on day 4-6 -Chemo Day: () (3+7) Patient is a candidate for transplant based on Dx and prognostic feature persistent dise ase day 14. Request insurance approval for typing. HLA typing sent 05/27/15. He has two bro thers for potential donors. #Pancytopenia: secondary to acute leukemia. -supportive care #Supportive Care: Growth factor: Not indicated with this chemotherapy regimen. Labs: Continue to check CBC with diff daily Transfusion parameters: -Transfuse PRBCs for HCT <21% -Transfuse PPH for platelet count <10,000 or sooner PRN s/s bleeding. HEENT: #Parotitis: Initially noted to lefty side on 06/[address]. Improved with a course o f zosyn (06/07-06/13), vancomycin 06/09-06/12 for additional staph coverage and supportive jagdeep ures (warm compresses, sialogogues, pain control, hydration). Now with right sided parotitis noted as on 06/16. -Continue conservative management with warm compresses, sialogogues, pain control and hydr ation -Zosyn (06/17- ) -Vancomycin (06/17-06/18) No indication at this time, consider re-starting if symptoms wor sen. -Continue oxycodone PRN Cardiovascular: Prechemotherapy Echo results on 05/18: EF 60-65 %. Left ventricular diastol ic function is normal. #Poss Hx of Pericarditis: presented to OSH on several visits to ED with CP. Echo done at [facility] x 2 both normal, no noted pericarditis or effusions. He received a course of colchicine an d is now asymptomatic. #Bradycardia likely medication induced (dexamethsone vs. Mitoxantrone): Asymptomatic. EKG 1 08/16 with sinus bradycardia, left ventricular hypertrophy. HR now in 60s, 70s, last dose of d examethasone and Mitoxantrone 06/16. Pulmonary: #Current Smoker: Smoking cessation counseling offered -Nicotine gum PRN -Consider Nicotine patch is symptoms not controlled GI: #CINV: Improved today. Scop patch stopped as did not help -Continue scheduled compazine and zofran /Renal: No acute issues Neurology: #Insomnia -Trazodone 25 mg at bedtime Dermatology: #Leg lesions: increasingly indurated and tender scattered lesions (3-4 on each leg). Derm c onsulted 06/09: biopsies for H+E and cultures done 06/09: negatiave -Change bandage daily: clean site, reapply vaseline and then cover with a bandage. -sutures should be removed on 06/23/2015. Reproductive: #Sperm banking: completed 05/27/15 prior to chemotherapy Infectious Disease: #Screening Tests: Heb B/C - negative, HIV- negative #Parotitis: Initially noted to lefty side on 06/[address]. Improved with a course o f zosyn (06/07-06/13), vancomycin 06/09-06/12 for additional staph coverage and supportive jagdeep ures (warm compresses, sialogogues, pain control, hydration). Now with right sided parotitis noted as on 06/16. -Continue conservative management with warm compresses, sialogogues, pain control and hydr ation -Zosyn (06/17- ) -Vancomycin (06/17-06/18) No indication at this time, consider re-starting if symptoms wor sen. -Continue oxycodone PRN #Prophylaxis: Bacterial: Zosyn Fungal: Posaconazole, level adequate 06/08 at 1.1 Viral: Acyclovir PCP: Not indicated Fluid/Nutrition/Lytes: #Nutrition: Regular diet, No Kezia's yogurt or Kefir #Fluid: 1L NS PRN for PO intake <2L/day by 2200 #Lytes: Continue to check chemistries daily. Replace per supportive care protocol. Disposition: Will remains hospitalized until count recover, plan for another ~2 weeks. REBECCA Pérez NP [facility] [address] [facility] Mailcode: [id number] [place], [place] [id number] Latonya Wilkerson ANP - 06/20/2015 2:04 PM PST Daily NPP Note - [facility]otherapy [facility] Attending: Lashonda Chapa MD PCP: Pending Pcp ADDITION Date of Admission: 05/26/2015 Hematologic Malignancy: AML Reason for admission: Work-up and Induction Chemotherapy 24 Hour Events/Current Daily Plan: -Acute Myelomonocytic Leukemia, normal cytogenetics, [facility] genetrails +NRAS (40%). S/p 3+7 i nduction. Day 14 bmbx with residual AML (50-60% cellularity with 50% blasts), now day 10 of HAM re-induction. -Pancytopenic r/t treatment: Standard transfusion parameters.Continue to administer freshes t platelet product available. Transfuse 1U PPH and 1U PRBC today. -Leg lesions w/unknown etiology: work up for Sweets vs infection negative and lesions now i mproved. Continue wound care as below and sutures should be removed on 06/23/2015. -Right side parotitis: recently had left sided parotitis, now right sided parotitis likely secondary to cytarabine per ENT. Continue warm compresses, pain control, PO hydration. Per I D re-started Zosyn 06/17, no indication for Vancomycin at this time. -Lytes: Standard electrolyte repletion parameters. No replacements required today. Subjective: Pain about the same to right cheek but manageable with pain medications. Able t o eat and drink. Objective: Last Vitals: BP 123/61 | Pulse 58 | Temp 37 C (98.6 F) | RR 16 | Ht 1.9 m (6' 2.8") | W t 84.052 kg (185 lb 4.8 oz) | SpO2 100% | BMI 23.28 kg/(m^2) 24 Hour Vital Min/Max: Systolic (24hrs), Av mmHg, Min:103 mmHg, Max:133 mmHg Diastolic (24hrs), Av mmHg, Min:57 mmHg, Max:91 mmHg Pulse Min: 58 Max: 90 Temp Min: 36.9 C (98.4 F) Max: 37.2 C (99 F) Resp Min: 16 Max: 16 SpO2 Min: 99 % Max: 100 % Intake/Output Summary (Last 24 hours) at 06/20/15 1404 Last data filed at 06/20/15 1244 Gross per 24 hour Intake 4671 ml Output 4280 ml Net 391 ml Physical Exam: General: This is a male in no acute distress. Sitting on the edge of bed. HEENT: PERRL. Sclerae anicteric. Mucosa pink and moist. Right cheek with edema and mild t enderness. Skin: Minimal petechial rash on legs. Right leg biopsy site without s/sx infection. Chest: Lungs clear to auscultation bilat. CV: RRR, no murmurs. Abdomen: S/NT/ND with NABS. No HSM appreciated. Extremities: Pulses strong and equal bilaterally. No c/c/e. NeuroPsych: Alert and oriented x 3. Grossly nonfocal exam. CVC: PICC line dressing dry and intact Laboratory Results: Recent Labs 06/17/15229906/19/15206/19/15 2324 NA 140 140 138 K 3.9 3.8 3.9 CL 110* 109* 106 BICARB 24 26 26 BUN 17 14 13 CR 0.85 0.88 0.86 GLU 99 103* 96 CA 8.4* 8.1* 8.8 AST 28 16 14 ALT 76* 57 48 AP 56 52* 57 TBILI 0.4 0.4 0.3 TP 6.3* 5.9* 6.2* ALB 3.4* 3.3* 3.4* Recent Labs 06/11/15 2330 06/17/15 23006/19/15 0003 06/19/15 2324 WBC 0.27* < > 0.15* 0.13* <0.10* RBC 2.83* < > 2.31* 2.55* 2.36* HB 8.7* < > 7.2* 7.8* 7.3* HCT 24.9* < > 19.9* 21.9* 19.8* PLT 24* < > 20* 17* 9* NEUTROPERC -- -- 0.0* -- -- LYMPHPERC -- -- 86.7* -- -- MONOPERC -- -- 13.3* -- -- BASOPERC -- -- 0.0 -- -- EOSPERC -- -- 0.0* -- -- < > = values in this interval not displayed. Meds: Reviewed on rounds, see current MAR for medication list SUMMARY OF PATIENT'S HOSPITALIZATION History of Present Illness: Khurram Kelly is 24 yo M with pmhx of pericarditis and new diagnosis of acute leukemia admitted for induction and management. Had been in usual state of [facility] 03/13/15 (the night of his wedding) at which time he noted bilateral ankle pain and swellin g. This persisted and worsened intermittently, notably when hunting on 03/19/15. Then after w ork, couldn't walk well 2/2 pain and inevitably couldn't bear weight on his feet. Presented to the ED and was diagnosed with cellulitis of the RLE, given antibiotics. During evaluation patient also noted to have pancytopenia with subsequent white blood cell differential ident ifying a predominance of early appearing monocytes. On 04/18/15 began to have pleuritic anterior chest pains, low-grade fevers occasionally up to 101. Also had onset of swelling and erythema over his left ankle, seen in the [facility]'s emergency room on 04/19/15. CT angiogram negative for blood clot. CBC demonstrated whi te count 15,300 with 59% monocytes, 3% immature monocytes, hemoglobin 11.8, platelets 146,00 0. He was apparently treated with antibiotics, also colchicine and anti-inflammatory agents - for possible dx of pericarditis - with complete resolution of his symptoms. After he finished the antibiotics and other medicines, the symptoms came back, repeat trip to the emergency room on 04/26/15. Repeat CT angiogram was again negative for pulmonary embo carmen or other abnormality. CBC showed white count 14,300 with 48% monocytes, 4% immature mono cytes, hemoglobin 12.8, platelets 180,000. He was again treated with the anti-inflammatory r maye colchicine, no antibiotics, again with complete resolution of symptoms. Was referred to Oncology and at that time had pleuritic anterior chest pain, low-grade feve rs. CBC demonstrated white count 17,600 with 66% monocytes, hemoglobin 11.8, platelets 115,0 00, did have 3.5% basophils. Review of his peripheral smear by pathology revealed many immat ure monocytes but no overt blasts. 05/19/15 had bone marrow bx confirming AML (see below) as well as flow cytometry. 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 -Results: 86% of blast equivalents, comprised of myeloblasts, monoblasts and promonocytes. Concurrent flow cytometry detected 23% myeloid blasts and 60% immature monocytic cells suppo rting this diagnosis. -Cytogenetics: Normal male karyotype -GeneTrails from OSH: triple negative for CEBPA , NPM1, FLT3 -Peripheral blood flow 05/27/15: Acute Myelomonocytic Leukemia (47% blasts and 30% monocyte s) -Cytogenetics: normal male karyotype -GeneTrails: NRAS mutation (40%) -Day 14 BM Bx 06/09/15: Residual AML with 50-60% marrow cellularity and approximately 50% bl asts -Plan to send telomere length and chromosomal breakage when he recovers Treatment: -Chemotherapy regimen: standard induction with 3+7 started 05/27/15 -Idarubicin 12 mg/m2 daily x 3 days -Cytarabine 100 mg/m2 CI IV daily x 7 days. -Re-induction chemotherapy regimen: [facility] started 06/11/15 -Cytarabine 3000 mg/m2 over 3 hours q 12 hr x 6 doses total, day 1-3 -Pred Forte Eye drops (1%) 2 drops to each eye q 6 hours from day 1 through day 6. First d ose of Pred eye drops to be 1/2 hr before first Cytarabine dose on day 1. -Mitoxantrone 10mg/m2/day over 30 minutes IV on day 4-6 -Chemo Day: 10 (HAM) / 25 (3+7) Patient is a candidate for transplant based on Dx and prognostic feature persistent dise ase day 14. Request insurance approval for typing. HLA typing sent 05/27/15. He has two bro thers for potential donors. #Pancytopenia: secondary to acute leukemia. -supportive care #Supportive Care: Growth factor: Not indicated with this chemotherapy regimen. Labs: Continue to check CBC with diff daily Transfusion parameters: -Transfuse PRBCs for HCT <21% -Transfuse PPH for platelet count <10,000 or sooner PRN s/s bleeding. HEENT: #Parotitis: Initially noted to lefty side on 06/[address]. Improved with a course o f zosyn (06/07-06/13), vancomycin 06/09-06/12 for additional staph coverage and supportive jagdeep ures (warm compresses, sialogogues, pain control, hydration). Now with right sided parotitis noted as on 06/16. -Continue conservative management with warm compresses, sialogogues, pain control and hydr ation -Zosyn (06/17- ) -Vancomycin (06/17-06/18) No indication at this time, consider re-starting if symptoms wor sen. -Continue oxycodone PRN Cardiovascular: Prechemotherapy Echo results on 05/18: EF 60-65 %. Left ventricular diastol ic function is normal. #Poss Hx of Pericarditis: presented to OSH on several visits to ED with CP. Echo done at [facility] x 2 both normal, no noted pericarditis or effusions. He received a course of colchicine an d is now asymptomatic. #Bradycardia likely medication induced (dexamethsone vs. Mitoxantrone): Asymptomatic. EKG 1 08/16 with sinus bradycardia, left ventricular hypertrophy. HR now in 60s, 70s, last dose of d examethasone and Mitoxantrone 06/16. Pulmonary: #Current Smoker: Smoking cessation counseling offered -Nicotine gum PRN -Consider Nicotine patch is symptoms not controlled GI: #CINV: Improved today. Scop patch stopped as did not help -Continue scheduled compazine and zofran /Renal: No acute issues Neurology: #Insomnia -Trazodone 25 mg at bedtime Dermatology: #Leg lesions: increasingly indurated and tender scattered lesions (3-4 on each leg). Derm c onsulted 06/09: biopsies for H+E and cultures done 06/09: negatiave -Change bandage daily: clean site, reapply vaseline and then cover with a bandage. -sutures should be removed on 06/23/2015. Reproductive: #Sperm banking: completed 05/27/15 prior to chemotherapy Infectious Disease: #Screening Tests: Heb B/C - negative, HIV- negative #Parotitis: Initially noted to lefty side on 06/[address]. Improved with a course o f zosyn (06/07-06/13), vancomycin 06/09-06/12 for additional staph coverage and supportive jagdeep ures (warm compresses, sialogogues, pain control, hydration). Now with right sided parotitis noted as on 06/16. -Continue conservative management with warm compresses, sialogogues, pain control and hydr ation -Zosyn (06/17- ) -Vancomycin (06/17-06/18) No indication at this time, consider re-starting if symptoms wor sen. -Continue oxycodone PRN #Prophylaxis: Bacterial: Zosyn Fungal: Posaconazole, level adequate 06/08 at 1.1 Viral: Acyclovir PCP: Not indicated Fluid/Nutrition/Lytes: #Nutrition: Regular diet, No Kezia's yogurt or Kefir #Fluid: 1L NS PRN for PO intake <2L/day by 2200 #Lytes: Continue to check chemistries daily. Replace per supportive care protocol. Disposition: Will remains hospitalized until count recover, plan for another ~3 weeks. RONALD Merrill ANP [address] [facility] Mailcode: [id number] [place] [address] Lashonda Rodriguez MD - 06/20/2015 9:57 AM PSTHematologic Malignancies/Bone Marrow Transplant Inpatient Attending Progress Note: I rounded today, 06/20/2015, in conjunction with the ESTHELA. I saw the patient, reviewed the history and relevant studies and developed an assessment and plan. Subjective/Objective: pain stable right cheek, able to eat and drink, happy about pain colleen men asymetry in cheeks, mild tenderness to palpation Please see the ESTHELA documentation from today for the details regarding the assessment and pl an. Patients Hospital Problem List: Active Hospital Problems 1) *Acute myeloid leukemia (AML), M4 (HCC) 3) Immunocompromised state (HCC) 4) Electrolyte abnormality 5) Pancytopenia due to chemotherapy (HCC) 7) Parotiditis 8) Multiple skin nodules Resolved Hospital Problems 11) Chemotherapy induced nausea and vomiting 12) Rhinitis AML, normal cytogenetics, Nras mutated (40%), initially likely 80% blasts in 90% marrow -> 50% blast in 50% cellular marrow, day 10 of of HAM reinduction. Recurrent- contralateral side parotitis, appreciate ID input, on zosyn, ENT consult. Suspec edward due to AraC. Oxycodone PRN. Lashonda Chapa MD [facility] [address] [facility] Mailcode: [id number] [place] [address] Kary Francis PA - 06/19/2015 12:59 PM PST Daily NPP Note - Chemotherapy Ad[facility] Attending: Lashonda Chapa MD PCP: Pending Pcp ADDITION Date of Admission: 05/26/2015 Hematologic Malignancy: AML Reason for admission: Work-up and Induction Chemotherapy 24 Hour Events/Current Daily Plan: -Acute Myelomonocytic Leukemia, normal cytogenetics, [facility] genetrails +NRAS (40%). S/p 3+7 i nduction. Day 14 bmbx with residual AML (50-60% cellularity with 50% blasts), now day 9 of HAM re-induction. -Pancytopenic r/t treatment: Standard transfusion parameters.Continue to administer freshe st platelet product available. No transfusions indicated today. -Leg lesions w/unknown etiology: work up for Sweets vs infection negative and lesions now i mproved. Continue would care as below and sutures should be removed on 06/23/2015. -Right side parotitis likely medication related (noted 06/16): previously had left sided par otitis. Per ENT (consulted 06/18) continue warm compresses, pain control, PO hydration. Per ID (consulted 06/17) re-started Zosyn 06/17, no indication for Vancomycin at this time. -Lytes: Standard electrolyte repletion parameters. No replacements required today. Subjective: Feeling well this morning. Right sided cheek swelling is tender but a little bi t better. Otherwise no complaints. Objective: Last Vitals: BP 120/77 | Pulse 64 | Temp 37.2 C (99 F) | RR 16 | Ht 1.9 m (6' 2.8") | W t 83.099 kg (183 lb 3.2 oz) | SpO2 99% | BMI 23.02 kg/(m^2) 24 Hour Vital Min/Max: Systolic (24hrs), Av mmHg, Min:106 mmHg, Max:126 mmHg Diastolic (24hrs), Av mmHg, Min:64 mmHg, Max:77 mmHg Pulse Min: 64 Max: 83 Temp Min: 36.6 C (97.9 F) Max: 37.2 C (99 F) Resp Min: 16 Max: 16 SpO2 Min: 99 % Max: 100 % Intake/Output Summary (Last 24 hours) at 06/19/15 1259 Last data filed at 06/19/15 1200 Gross per 24 hour Intake 3820 ml Output 4105 ml Net -285 ml Physical Exam: General: This is a male in no acute distress. Sitting on edge of bed. HEENT: PERRL. Sclerae anicteric. Mucosa pink and moist. Right cheek with edema and mild t enderness. Skin: Minimal petechial rash on legs. Right leg biopsy site without s/sx infection. Chest: Lungs clear to auscultation bilat. CV: RRR, no murmurs. Abdomen: S/NT/ND with NABS. No HSM appreciated. Extremities: Pulses strong and equal bilaterally. No c/c/e. NeuroPsych: Alert and oriented x 3. Grossly nonfocal exam. CVC: PICC line dressing dry and intact Laboratory Results: Recent Labs 06/16/15 2350 06/17/15 23006/19/15 0003 NA 139 140 140 K 4.2 3.9 3.8 CL 111* 110* 109* BICARB 23 24 26 BUN 12 17 14 CR 0.56* 0.85 0.88 GLU 126* 99 103* CA 8.6 8.4* 8.1* AST 21 28 16 ALT 79* 76* 57 AP 58 56 52* TBILI 0.4 0.4 0.4 TP 6.7 6.3* 5.9* ALB 3.6 3.4* 3.3* Recent Labs 06/11/15 2330 06/16/15 2350 06/17/15 0655 06/17/15 2300 06/19/15 0003 WBC 0.27* < > <0.10* -- 0.15* 0.13* RBC 2.83* < > 2.58* -- 2.31* 2.55* HB 8.7* < > 8.1* -- 7.2* 7.8* HCT 24.9* < > 21.8* -- 19.9* 21.9* PLT 24* < > 8* 26* 20* 17* NEUTROPERC -- -- -- -- 0.0* -- LYMPHPERC -- -- -- -- 86.7* -- MONOPERC -- -- -- -- 13.3* -- BASOPERC -- -- -- -- 0.0 -- EOSPERC -- -- -- -- 0.0* -- < > = values in this interval not displayed. Meds: Reviewed on rounds, see current MAR for medication list SUMMARY OF PATIENT'S HOSPITALIZATION History of Present Illness: Khurram Kelly is 24 yo M with pmhx of pericarditis and new diagnosis of acute leukemia admitted for induction and management. Had been in usual state of [facility] 03/13/15 (the night of his wedding) at which time he noted bilateral ankle pain and swellin g. This persisted and worsened intermittently, notably when hunting on 03/19/15. Then after w ork, couldn't walk well 2/2 pain and inevitably couldn't bear weight on his feet. Presented to the ED and was diagnosed with cellulitis of the RLE, given antibiotics. During evaluation patient also noted to have pancytopenia with subsequent white blood cell differential ident ifying a predominance of early appearing monocytes. On 04/18/15 began to have pleuritic anterior chest pains, low-grade fevers occasionally up to 101. Also had onset of swelling and erythema over his left ankle, seen in the [facility]'s emergency room on 04/19/15. CT angiogram negative for blood clot. CBC demonstrated whi te count 15,300 with 59% monocytes, 3% immature monocytes, hemoglobin 11.8, platelets 146,00 0. He was apparently treated with antibiotics, also colchicine and anti-inflammatory agents - for possible dx of pericarditis - with complete resolution of his symptoms. After he finished the antibiotics and other medicines, the symptoms came back, repeat trip to the emergency room on 04/26/15. Repeat CT angiogram was again negative for pulmonary embo carmen or other abnormality. CBC showed white count 14,300 with 48% monocytes, 4% immature mono cytes, hemoglobin 12.8, platelets 180,000. He was again treated with the anti-inflammatory r maye colchicine, no antibiotics, again with complete resolution of symptoms. Was referred to Oncology and at that time had pleuritic anterior chest pain, low-grade feve rs. CBC demonstrated white count 17,600 with 66% monocytes, hemoglobin 11.8, platelets 115,0 00, did have 3.5% basophils. Review of his peripheral smear by pathology revealed many immat ure monocytes but no overt blasts. 05/19/15 had bone marrow bx confirming AML (see below) as well as flow cytometry. 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 -Results: 86% of blast equivalents, comprised of myeloblasts, monoblasts and promonocytes. Concurrent flow cytometry detected 23% myeloid blasts and 60% immature monocytic cells suppo rting this diagnosis. -Cytogenetics: Normal male karyotype -GeneTrails from OSH: triple negative for CEBPA , NPM1, FLT3 -Peripheral blood flow 05/27/15: Acute Myelomonocytic Leukemia (47% blasts and 30% monocyte s) -Cytogenetics: normal male karyotype -GeneTrails: NRAS mutation (40%) -Day 14 BM Bx 06/09/15: Residual AML with 50-60% marrow cellularity and approximately 50% bl asts -Plan to send telomere length and chromosomal breakage when he recovers Treatment: -Chemotherapy regimen: standard induction with 3+7 started 05/27/15 -Idarubicin 12 mg/m2 daily x 3 days -Cytarabine 100 mg/m2 CI IV daily x 7 days. -Re-induction chemotherapy regimen: [facility] started 06/11/15 -Cytarabine 3000 mg/m2 over 3 hours q 12 hr x 6 doses total, day 1-3 -Pred Forte Eye drops (1%) 2 drops to each eye q 6 hours from day 1 through day 6. First d ose of Pred eye drops to be 1/2 hr before first Cytarabine dose on day 1. -Mitoxantrone 10mg/m2/day over 30 minutes IV on day 4-6 -Chemo Day: 9 () (3+7) Patient is a candidate for transplant based on Dx and prognostic feature PENDING. Reques t insurance approval for typing. HLA typing sent 05/27/15. He has two brothers for potentia l donors. #Pancytopenia: secondary to acute leukemia. Folate, B12 normal -supportive care #Supportive Care: Growth factor: Not indicated with this chemotherapy regimen. Labs: Continue to check CBC with diff daily Transfusion parameters: -Transfuse PRBCs for HCT <21% -Transfuse PPH for platelet count <10,000 or sooner PRN s/s bleeding. HEENT: #Left acute parotitis: largely resolved as of 06/12. pain started ~06/02 and developed acute swelling 06/[address] max/facial with contrast 06/07 confirmed parotitis, no abscess . ID consulted. Completed a course of zosyn (06/07-06/13) and added vancomycin 06/09-06/12 for additional staph coverage. ENT consulted and recommend abx as per ID and supportive measures (warm compresses, sialogogues, pain control, hydration). Acute pain treated with morphine P CA (06/07-06/11),Resolved. #Right side parotitis likely medication related: noted 06/16, similar to pain with acute par otitis. ID and ENT following (06/17) -Continue conservative management with warm compresses, sialogogues, pain control and hydr ation -Zosyn (06/17- ) -Vancomycin (06/17-06/18) No indication at this time, consider re-starting if symptoms wor sen. -Continue oxycodone PRN Cardiovascular: Prechemotherapy Echo results on 05/18: EF 60-65 %. Left ventricular diastol ic function is normal. #Poss Hx of Pericarditis: presented to OSH on several visits to ED with CP. Echo done at [facility] x 2 both normal, no noted pericarditis or effusions. He received a course of colchicine an d is now asymptomatic. #Bradycardia likely medication induced (dexamethsone vs. Mitoxantrone): Asymptomatic. EKG 1 08/16 with sinus bradycardia, left ventricular hypertrophy. HR now in 60s, 70s, last dose of d examethasone and Mitoxantrone 06/16. Pulmonary: #Current Smoker: Smoking cessation counseling offered -Nicotine gum PRN -Consider Nicotine patch is symptoms not controlled GI: #CINV: Improved today. Scop patch stopped as did not help -Continue scheduled compazine and zofran /Renal: No acute issues Neurology: #Insomnia -Trazodone 25 mg at bedtime Dermatology: #Leg lesions: increasingly indurated and tender scattered lesions (3-4 on each leg). Derm c onsulted 06/09: biopsies for H+E and cultures done 06/09: negatiave -Change bandage daily: clean site, reapply vaseline and then cover with a bandage. -sutures should be removed on 06/23/2015. Reproductive: #Sperm banking: completed 05/27/15 prior to chemotherapy Infectious Disease: #Screening Tests: Heb B/C - negative, HIV- negative #Parotitis: see HEENT section above. #Prophylaxis: Bacterial: As above Fungal: Posaconazole, (held during HAM chemotherapy, restarted 06/17) Viral: Acyclovir PCP: Not indicated Fluid/Nutrition/Lytes: #Nutrition: Regular diet, No Kezia's yogurt or Kefir #Fluid: 1L NS PRN for PO intake <2L/day by 2200 #Lytes: Continue to check chemistries daily. Replace per supportive care protocol. Disposition: Will remains hospitalized until count recover, plan for another ~3 weeks. [facility] [address] [place] [address] Mailcode: [id number] [facility] [id number] Lahsonda Rodriguez MD - 06/19/2015 11:21 AM PSTHematologic Malignancies/Bone Marrow Transplant Inpatient Atte nding Progress Note: I rounded today, 06/19/2015, in conjunction with the ESTHELA. I saw the patient, reviewed the history and relevant studies and developed an assessment and plan. Subjective/Objective: pain, swelling better than yesterday asymetry in cheeks, mild tenderness to palpation Please see the ESTHELA documentation from today for the details regarding the assessment and pl an. Patients Hospital Problem List: Active Hospital Problems 1) *Acute myeloid leukemia (AML), M4 (HCC) 3) Immunocompromised state (HCC) 4) Electrolyte abnormality 5) Chemotherapy induced nausea and vomiting 6) Pancytopenia due to chemotherapy (HCC) 8) Parotiditis 9) Multiple skin nodules Resolved Hospital Problems 12) Rhinitis AML, normal cytogenetics, Nras mutated (40%), initially likely 80% blasts in 90% marrow -> 50% blast in 50% cellular marrow, day 9 of HAM reinduction. Recurrent- contralateral side parotitis, appreciate ID input, on zosyn, ENT consult. Suspec edward due to AraC. Lashodna Chapa MD [facility] [address] [facility] Mailcode: [id number] [place] [address] Richa Plummer Md 06/19/2015 11:14 AM PST Otolaryngology / Head and Neck Surgery Progress Note Date: 06/19/2015 Hospital Day: 24 Author: Richa Valles MD Attending Physician: Lashonda Chapa MD Subjective/Interval History: -afebrile -pain improved to right cheek -continued pancytopenia Vitals: Last 24 hour min/max Temp: 37.2 C (99 F) Temp Min: 36.6 C (97.9 F) Max: 37.2 C (99 F) Pulse: 64 Pulse Min: 64 Max: 83 Resp: 16 Resp Min: 16 Max: 16 BP: 120/77 mmHg BP Min: 106/65 Max: 126/72 SpO2: 99 % SpO2 Min: 99 % Max: 100 % Body mass index is 23.02 kg/(m^2). Intake/Output Summary (Last 24 hours) at 06/19/15 1115 Last data filed at 06/19/15 1100 Gross per 24 hour Intake 3810 ml Output 4105 ml Net -295 ml Physical Exam: Gen: NAD, awake and alert HEENT: mild edema to the right cheek, minimal tenderness, upon milking gland no purulence s een Resp: comfortable, unlabored, no stridor Labs: Lab Results Component Value Date NA 140 06/19/2015 K 3.8 06/19/2015 CL 109 06/19/2015 BICARB 26 06/19/2015 BUN 14 06/19/2015 CR 0.88 06/19/2015 GLU 103 06/19/2015 CA 8.1 06/19/2015 Lab Results Component Value Date MG 2.0 06/19/2015 Lab Results Component Value Date PO4 3.8 06/19/2015 Lab Results Component Value Date WBC 0.13 06/19/2015 HB 7.8 06/19/2015 HCT 21.9 06/19/2015 PLT 17 06/19/2015 MCV 85.9 06/19/2015 RDW 37.8 06/19/2015 Lab Results Component Value Date GLU 103* 06/19/2015 Assessment and Plan: Khurram Kelly is a 24 y.o. male with left sided parotitis , likely from cytarabine chemo. Improving clinically with antibiotic therapy, on zosyn and a cyclovir. -serum amylase -continue IV antibiotics per ID recs -Continue supportive care for parotitis including frequent parotid massage (milking the gla nd, warm compresses, sialogogues, pain control, excellent hydration. -will follow peripherally please call for questions or concerns Richa Valles MD R4 Lashonda Rodriguez MD - 06/18 6:23 PM PSTHematologic Malignancies/Bone Marrow Transplant Inpatient Attending Olivia pickard Note: I rounded today, 06/18/2015, in conjunction with the ESTHELA. I saw the patient, reviewed the history and relevant studies and developed an assessment and plan. Subjective/Objective: pain, swelling better than yesterday Please see the ESTHELA documentation from today for the details regarding the assessment and pl an. Patients Hospital Problem List: Active Hospital Problems 1) *Acute myeloid leukemia (AML), M4 (HCC) 3) Immunocompromised state (HCC) 4) Electrolyte abnormality 5) Chemotherapy induced nausea and vomiting 6) Pancytopenia due to chemotherapy (HCC) 7) Loose stools 8) Parotiditis 9) Multiple skin nodules Resolved Hospital Problems 12) Rhinitis AML, normal cytogenetics, Nras mutated (40%), initially likely 80% blasts in 90% marrow -> 50% blast in 50% cellular marrow, day 8 of HAM reinduction. Recurrent- contralateral side parotitis, appreciate ID input, resume atbx, ENT consult. Deidre pect due to AraC. Lashonda Medvedova, MD [facility] [id number] [facility] Mailcode: [id number] [place] [address] Lainey Silva MD - 06/18/2015 11:02 AM PST TRANSPLANT INFECTIOUS DISEASES FOLLOW UP VISIT NOTE I saw & examined Mr. Kelly. Chart reviewed & events noted. Seen by ENT - they suspect inflammatory process, perhaps due to cytarabine. No fevers. On empiric zosyn/vancomycin. Patient reports pain on right side is a bit worse today. Same loose stools. No cough or abdominal pain. No other/new complaints. Current Medications: Current facility-administered medications: acyclovir (ZOVIRAX) tablet 800 mg, 800 mg, oral, DAILY, Latonya Reyes, RONALD, 800 mg at 06/18/15 0934 alteplase (CATHFLO ACTIVASE) injection 2 mg, 2 mg, Intracatheter, PRN, JULIANA Cosme , 2 mg at 06/16/15 0548 chlorhexidine (PERIDEX) mouthwash 15 mL, 15 mL, oral, Q6H, Abimael Campo MD, 15 mL at 1 08/19/14 1032 cyclobenzaprine (FLEXERIL) tablet 10 mg, 10 mg, oral, Q8H PRN, Yung Zhao MD, 10 mg a t 06/08/15 0645 diphenhydrAMINE (BENADRYL) capsule 25 mg, 25 mg, oral, Q4H PRN, Yari Garcia MD, 25 mg at 06/17/15 2059 diphenhydrAMINE (BENADRYL) injection 25 mg, 25 mg, intravenous, Q4H PRN, Yari Garcia MD, 25 mg at 06/17/15 2319 [id number] (SPECIAL MOUTHWASH) suspension (compound) 5-10 mL, 5-10 mL , oral, QID PRN, Kan Best MD, 10 mL at 06/06/15 1728 haloperidol (HALDOL) tablet 0.5-2 mg, 0.5-2 mg, oral, Q4H PRN, Yung Zhao MD haloperidol lactate (HALDOL) injection 0.5-2 mg, 0.5-2 mg, intravenous, Q4H PRN, Yung wilkins MD loperamide (IMODIUM) capsule 2 mg, 2 mg, oral, QID PRN, Lolis Merritt MD, 2 mg at 04/22 1157 LORazepam (ATIVAN) tablet 0.5 mg, 0.5 mg, oral, Q6H PRN, Abimael Campo MD, 0.5 mg at 1032 magnesium citrate liquid 296 mL, 296 mL, oral, DAILY PRN, JULIANA Moya, 296 mL at 06/08/15 1906 magnesium sulfate in water IV (RTU) 4 g, 4 g, intravenous, PRN, Blair Deng MD magnesium sulfate IV 8 g, 8 g, intravenous, PRN, Blair Deng MD morphine injection 1-4 mg, 1-4 mg, intravenous, Q4H PRN, Em Saunders PA-C NaCl 0.9 % solution, 100 mL/hr, intravenous, PRN, Lolis Merritt MD nalOXone (NARCAN) injection, , intravenous, PRN, Em Saunders PA-C nicotine polacrilex (NICORETTE) gum 2 mg, 2 mg, oral, PRN, Robyn Contreras NP ondansetron (ZOFRAN) injection 4 mg, 4 mg, intravenous, Q12H, JULIANA Moya, 4 mg at 06/18/15 0934 oxyCODONE (immediate release) (ROXICODONE) tablet 5-10 mg, 5-10 mg, oral, Q4H PRN, Em de leon PA-C, 10 mg at 06/18/15 0934 piperacillin-tazobactam (ZOSYN) IV (minibag+) 4.5 g, 4.5 g, intravenous, Q6H, Robyn salinas NP, 4.5 g at 06/18/15 0510 polyethylene glycol (MIRALAX) powder 17 g, 17 g, oral, DAILY PRN, Em Saunders PA-C [COMPLETED] posaconazole DR (NOXAFIL) tablet 300 mg, 300 mg, oral, BID, 300 mg at 05/31/152117 FOLLOWED BY posaconazole DR (NOXAFIL) tablet 300 mg, 300 mg, oral, DAILY, Em davidson PA-C, 300 mg at 06/18/15 0934 potassium chloride IV (central line) 40 mEq, 40 mEq, intravenous, PRN AND potassium chl oride IV (central line) 60 mEq, 60 mEq, intravenous, PRN, Blair Deng MD potassium chloride SR (K-DUR) tablet 40 mEq, 40 mEq, oral, PRN, Blair Deng MD, 40 mE q at 06/12/15 1507 potassium phosphate IV 30 mmol, 30 mmol, intravenous, PRN AND potassium phosphate IV 40 mmol, 40 mmol, intravenous, PRN, Blair Deng MD prochlorperazine (COMPAZINE) tablet 5 mg, 5 mg, oral, Q6H PRN, Robyn Contreras NP senna-docusate (SENOKOT S) 8.6-50 mg 1-2 tablet, 1-2 tablet, oral, BID PRN, Em Saunders PA-C sodium phosphate IV 30 mmol, 30 mmol, intravenous, PRN, Blair Deng MD, 30 mmol at 0628 sodium phosphate IV 40 mmol, 40 mmol, intravenous, PRN, Blair Deng MD traZODone (DESYREL) dose 25 mg, 25 mg, oral, HS, Em Saunders PA-C, 25 mg at 06/17/15 20 59 vancomycin (VANCOCIN) IV 1,250 mg, 1,250 mg, intravenous, Q8H, Robyn Contreras NP, 1,25 0 mg at 06/18/15 0934 Allergies: Review of patient's allergies indicates no known allergies. Physical Exam Last Vitals: BP 107/68 | Pulse 80 | Temp 36.6 C (97.9 F) | RR 16 | Ht 1.9 m (6' 2.8") | Wt 83.099 kg (183 lb 3.2 oz) | SpO2 100% | BMI 23.02 kg/(m^2) 24 Hour Vital Min/Max: Systolic (24hrs), Av mmHg, Min:104 mmHg, Max:124 mmHg Diastolic (24hrs), Av mmHg, Min:58 mmHg, Max:69 mmHg Pulse Min: 59 Max: 80 Temp Min: 36.4 C (97.5 F) Max: 36.9 C (98.4 F) Resp Min: 16 Max: 17 SpO2 Min: 99 % Max: 100 % Intake/Output Summary (Last 24 hours) at 06/18/15 1104 Last data filed at 06/18/15 1100 Gross per 24 hour Intake 5112 ml Output 3900 ml Net 1212 ml Gen: NAD, comfortable HEENT: swelling & tenderness overlying right parotid, no overlying erythema or induration o f skin OP: clear mucus membranes, no lesions Lungs: clear bilaterally Heart: regular, no appreciable murmur Abdomen: +BS, soft, nontender Skin: no new rash Ext: no edema Line Site: E PICC site [place] Diagnostic Tests: Lab Results Component Value Date WBC 0.15* 06/17/2015 RBC 2.31* 06/17/2015 HB 7.2* 06/17/2015 HCT 19.9* 06/17/2015 MCV 86.1 06/17/2015 MCHC 36.2 06/17/2015 RDW 37.6 06/17/2015 PLT 20* 06/17/2015 NEUTROPERC 0.0* 06/17/2015 LYMPHPERC 86.7* 06/17/2015 MONOPERC 13.3* 06/17/2015 EOSPERC 0.0* 06/17/2015 BASOPERC 0.0 06/17/2015 ATYPICALPCT 3.5* 06/10/2015 NEUTROPHILCO 0.00* 06/17/2015 MONOCYTECO 0.02* 06/17/2015 EOSCO 0.00 06/17/2015 BASOPHILCO 0.00 06/17/2015 Lab Results Component Value Date NA 140 06/17/2015 K 3.9 06/17/2015 CL 110* 06/17/2015 BICARB 24 06/17/2015 BUN 17 06/17/2015 CR 0.85 06/17/2015 GLU 99 06/17/2015 CA 8.4* 06/17/2015 Lab Results Component Value Date TBILI 0.4 06/17/2015 AP 56 06/17/2015 TP 6.3* 06/17/2015 ALB 3.4* 06/17/2015 AST 28 06/17/2015 ALT 76* 06/17/2015 CULTURES: CULTURE RESULT (no units) Date Value 06/07/2015 Final Report:No Bacteria or Yeast isolated at 5 days. Assessment: 24 year old man with AML with initial 3+7 induction course complicated by left parotitis, now right parotitis s/p re-induction HAM. Neutropenic but no fevers. Agree paro titis is likely to be chemical in origin, perhaps related to a medication (eg., cytarabine). On zosyn/vancomycin. With no sign of active infection, no h/o MRSA, favor stopping vancom ycin from risk/benefit perspective & continue on empiric zosyn alone for now. Supportive th erapy per ENT for parotitis. Recommendations: - continue empiric zosyn for now - discontinue vancomycin PROPHYLAXIS: - on posaconazole (level 1.1 mcg/ml on 06/08) - on acyclovir Thank you. Above d/w primary team/Dr. Lashonda Chapa. Will follow with you. Lainey Arenas MD [place] [id number] [facility] Mailcode: [id number] [place] [address] Sterling Espinosa MD - 06/18/2015 9:27 AM PST Otolaryngology / Head and Neck Surgery Progress Note Resident: Sterling Mccrary MD Attending: Carmen Mora MD Date: 06/18/2015 Hospital Day:23 ID: Khurram Kelly is a 24 y.o. Male with AML who developed left sided parotiti s approximately 15 days ago, which resolved with vanc/zosyn and supportive measures. He has now developed similar pain on the R side, for which ENT was re-consulted. Interval History: - Contacted by the Heme-Onc team for recurrence of similar cheek pain, but now on the R eric e. Pain is localized right over the R parotid gland, extending to the tail of the parotid, a nd the area is mildly indurated, swollen, and tender. His left sided symptoms completely res olved after a couple of days of antibiotics and supportive measures last week. His pain on t he right is less severe than it formerly was on the left. - Interestingly, his first episode started after beginning cytarabine (he was on this 05/27 -06/03 -- his symptoms started about 06/02), and now his second episode on the R started aft er beginning another course of cytarabine (06/11-06/14). There are published reports in the li terature of patients developed bilateral parotitis while being on cytarabine. Please see A/P for more information. - No fevers. - Hydrating and eating well. - No shortness of breath. Last Vitals: Ht 1.9 m (6' 2.8"), Wt 83.099 kg (183 lb 3.2 oz), BP 107/68, Pulse 80, Temperature 36.6 C (97.9 F), RR 16, SpO2 100%, BMI 23.02 kg/(m^2). 24 Hour Vitals: Temp Av.6 C (97.9 F) Min: 36.4 C (97.5 F) Max: 36.9 C (98.4 F) Pulse Av.6 Min: 59 Max: 80 Systolic (24hrs), Av mmHg, Min:104 mmHg, Max:124 mmHgDiastolic (24hrs), Av mmHg, M in:58 mmHg, Max:69 mmHg SpO2 Av.8 % Min: 99 % Max: 100 % Resp Av.1 Min: 16 Max: 17 Intake/Output Summary (Last 24 hours) at 06/18/15 0927 Last data filed at 06/18/15 0836 Gross per 24 hour Intake 5032 ml Output 4500 ml Net 532 ml Physical Exam: Gen: awake and alert, NAD HEENT: R parotid area mildly swollen, indurated, and tender. No discrete masses. +saliva fl ow from Bharath's duct, no pus from bharath's duct. No adenopathy. No fluctuance. No trismus L parotid area resolved; no tenderness or swelling. Labs: CBC with diff last 72 hours (or 3 results) Recent Labs 06/15/15 2300 06/16/15 2350 06/17/15 0655 06/17/15 2300 WBC <0.10* <0.10* -- 0.15* HB 8.5* 8.1* -- 7.2* HCT 23.4* 21.8* -- 19.9* PLT 11* 8* 26* 20* NEUTROPERC -- -- -- 0.0* LYMPHPERC -- -- -- 86.7* MONOPERC -- -- -- 13.3* BASOPERC -- -- -- 0.0 EOSPERC -- -- -- 0.0* Chemistries: Last 72 Hours (or 3 results): Recent Labs 06/15/15 2300 06/16/15 2350 06/17/15 2300 NA 141 139 140 K 3.8 4.2 3.9 CL 112* 111* 110* BICARB 22 23 24 BUN 12 12 17 CR 0.62* 0.56* 0.85 GLU 105* 126* 99 CA 8.2* 8.6 8.4* MG 2.2 2.3 2.0 PO4 2.9 2.9 4.4 Assessment and Plan: Khurram Kelly is a 24 y.o. Male with AML who developed L sided parotitis, which resolved after cessation of cytarabine, supportive parotid measures, and vanc/zosyn per ID recs. He has now developed R sided cheek pain that is consistent with parotitis, with acute pain and swelling in R parotid region extending down into the tail of the parotid. There is no signs of active infection, with no pus from Bharath's duct, no red ness of the skin, no fevers. This appears to be more of an inflammatory process. The relatio nship with his administration of cytarabine is interesting -- both episodes occurred during/ just after cytarabine treatment, and there are published reports in the literature of this c ytotoxic chemotherapy agent being implicated in inflammation of the parotid (You O, Rec urrent Bilateral Partotitis in Acute Myeloid Leukoemia, Acta Haemotol 1991; 86:56 and Hima reed JE, Acute Bilateral parotitis during Chemotherapy for Acute Lymphoblastic Leukemia, Acta Haemotol 1992; 88:55-56). Based on those reports in the literature, the swelling and pain s hould improve after cessation of the medication, and hopefully will begin to resolve over co aby days. There are some reports that this inflammatory sequelae on the parotid are mediate d by B-adrenergic receptors and can be stymied by propranolol, but given that he has ceased taking the drug, do not feel this is necessary. Patient is vaccinated and do not feel that t his bilateral parotitis is related to mumps, and do not think it is necessary to test a mump s titer at this time given chemotherapy being likely culprit in his parotitis. Please check a serum amylase. OK with continuing antibiotics per ID's recommendation to prevent superinfection in the setting of an inflamed parotid. Likely ok to transition to PO antibiotics once he shows clin ical improvement. Continue supportive care for parotitis including frequent parotid massage (milking the g land, warm compresses, sialogogues, pain control, excellent hydration. We will continue to follow. Marko. Sterling Mccrary MD R2, Department of Otolaryngology/Head & Neck Surgery Formerly [facility], [facility] Pager [phone] Robyn Lainez N P - 06/18/2015 9:13 AM PST Daily NPP Note - Chemotherapy Admit [facility] Attending: Lolis Merritt MD PCP: Pending Pcp ADDITION Date of Admission: 05/26/2015 Hematologic Malignancy: AML Reason for admission: Work-up and Induction Chemotherapy 24 Hour Events/Current Daily Plan: -Acute Myelomonocytic Leukemia, normal cytogenetics, [facility] genetrails +NRAS (40%). S/p 3+7 i nduction. Day 14 bmbx with residual AML (50-60% cellularity with 50% blasts), now day 8 HAM re-induction. -Pancytopenic r/t treatment: Standard transfusion parameters.Continue to administer freshes t platelet product available. No transfusions indicated today. -Bradycardia likely medication induced (dexamethsone vs. Mitoxantrone): Asymptomatic. EKG 1 08/16 with sinus bradycardia, left ventricular hypertrophy. HR now in 60s, 70s, last dose of d examethasone and Mitoxantrone 06/16. -Leg lesions w/unknown etiology: work up for Sweets vs infection negative thus far. Continu e would care as below and sutures should be removed on 06/23/2015. -Right side parotitis likely medication related (noted 06/16): pt states similar to pain pre viously with parotitis. Per ENT (consulted 06/18) continue warm compresses, pain control, PO hydration. Per ID (consulted 06/17) re-started Zosyn 06/17, no indication for Vancomycin at this time. -Lytes: Standard electrolyte repletion parameters. No replacements required today. Subjective: Feeling well this morning. Continues to have right sided mouth pain but gets re lief with pain medications. Objective: Last Vitals: BP 107/68 | Pulse 80 | Temp 36.6 C (97.9 F) | RR 16 | Ht 1.9 m (6' 2.8") | Wt 83.099 kg (183 lb 3.2 oz) | SpO2 100% | BMI 23.02 kg/(m^2) 24 Hour Vital Min/Max: Systolic (24hrs), Av mmHg, Min:104 mmHg, Max:124 mmHg Diastolic (24hrs), Av mmHg, Min:58 mmHg, Max:69 mmHg Pulse Min: 59 Max: 80 Temp Min: 36.4 C (97.5 F) Max: 36.9 C (98.4 F) Resp Min: 16 Max: 17 SpO2 Min: 99 % Max: 100 % Intake/Output Summary (Last 24 hours) at 06/18/15 0913 Last data filed at 06/18/15 0836 Gross per 24 hour Intake 5032 ml Output 4500 ml Net 532 ml Physical Exam: General: This is a male in no acute distress. Sitting on edge of bed. HEENT: PERRL. Sclerae anicteric. Mucosa pink and moist. Skin: Minimal petechial rash on legs. Right leg biopsy site without s/sx infection. Chest: Lungs clear to auscultation bilat. CV: RRR, no murmurs. Abdomen: S/NT/ND with NABS. No HSM appreciated. Extremities: Pulses strong and equal bilaterally. No c/c/e. NeuroPsych: Alert and oriented x 3. Grossly nonfocal exam. CVC: PICC line dressing dry and intact Laboratory Results: Recent Labs 06/15/15 2300 06/16/15 2350 06/17/15 2300 NA 141 139 140 K 3.8 4.2 3.9 CL 112* 111* 110* BICARB 22 23 24 BUN 12 12 17 CR 0.62* 0.56* 0.85 GLU 105* 126* 99 CA 8.2* 8.6 8.4* AST 38 21 28 ALT 92* 79* 76* AP 60 58 56 TBILI 0.6 0.4 0.4 TP 6.6 6.7 6.3* ALB 3.5 3.6 3.4* Recent Labs 06/11/15 2330 06/15/15 2300 06/16/150 06/17/15 0655 06/17/15 2300 WBC 0.27* < > <0.10* <0.10* -- 0.15* RBC 2.83* < > 2.75* 2.58* -- 2.31* HB 8.7* < > 8.5* 8.1* -- 7.2* HCT 24.9* < > 23.4* 21.8* -- 19.9* PLT 24* < > 11* 8* 26* 20* NEUTROPERC -- -- -- -- -- 0.0* LYMPHPERC -- -- -- -- -- 86.7* MONOPERC -- -- -- -- -- 13.3* BASOPERC -- -- -- -- -- 0.0 EOSPERC -- -- -- -- -- 0.0* < > = values in this interval not displayed. Meds: Reviewed on rounds, see current MAR for medication list SUMMARY OF PATIENT'S HOSPITALIZATION History of Present Illness: Khurram Kelly is 24 yo M with pmhx of pericarditis and new diagnosis of acute leukemia admitted for induction and management. Had been in usual state of [facility] 03/13/15 (the night of his wedding) at which time he noted bilateral ankle pain and swellin g. This persisted and worsened intermittently, notably when hunting on 03/19/15. Then after w ork, couldn't walk well 2/2 pain and inevitably couldn't bear weight on his feet. Presented to the ED and was diagnosed with cellulitis of the RLE, given antibiotics. During evaluation patient also noted to have pancytopenia with subsequent white blood cell differential ident ifying a predominance of early appearing monocytes. On 04/18/15 began to have pleuritic anterior chest pains, low-grade fevers occasionally up to 101. Also had onset of swelling and erythema over his left ankle, seen in the [facility]' emergency room on 04/19/15. CT angiogram negative for blood clot. CBC demonstrated whi te count 15,300 with 59% monocytes, 3% immature monocytes, hemoglobin 11.8, platelets 146,00 0. He was apparently treated with antibiotics, also colchicine and anti-inflammatory agents - for possible dx of pericarditis - with complete resolution of his symptoms. After he finished the antibiotics and other medicines, the symptoms came back, repeat trip to the emergency room on 04/26/15. Repeat CT angiogram was again negative for pulmonary embo carmen or other abnormality. CBC showed white count 14,300 with 48% monocytes, 4% immature mono cytes, hemoglobin 12.8, platelets 180,000. He was again treated with the anti-inflammatory r maye colchicine, no antibiotics, again with complete resolution of symptoms. Was referred to Oncology and at that time had pleuritic anterior chest pain, low-grade feve rs. CBC demonstrated white count 17,600 with 66% monocytes, hemoglobin 11.8, platelets 115,0 00, did have 3.5% basophils. Review of his peripheral smear by pathology revealed many immat ure monocytes but no overt blasts. 05/19/15 had bone marrow bx confirming AML (see below) as well as flow cytometry. Hospitalization History: Hematology: #AML Pertinent Diagnostics: -BM Bx done at [facility] 05/19/15, slides reviewed by YESSICA and c/w Acute Myelomonocytic Leukemia in a 90% cellular marrow. -Results: 86% of blast equivalents, comprised of myeloblasts, monoblasts and promonocytes. Concurrent flow cytometry detected 23% myeloid blasts and 60% immature monocytic cells suppo rting this diagnosis. -Cytogenetics: Normal male karyotype -[facility]Tra[facility] from [facility]: triple negative for CEBPA , NPM1, FLT3 -Peripheral blood flow 05/27/15: Acute Myelomonocytic Leukemia (47% blasts and 30% monocyte s) -Cytogenetics: normal male karyotype -GeneTrails: NRAS mutation (40%) -Day 14 BM Bx 06/09/15: Residual AML with 50-60% marrow cellularity and approximately 50% bl asts -Plan to send telomere length and chromosomal breakage when he recovers Treatment: -Chemotherapy regimen: standard induction with 3+7 started 05/27/15 -Idarubicin 12 mg/m2 daily x 3 days -Cytarabine 100 mg/m2 CI IV daily x 7 days. -Re-induction chemotherapy regimen: [facility] started 06/11/15 -Cytarabine 3000 mg/m2 over 3 hours q 12 hr x 6 doses total, day 1-3 -Pred Forte Eye drops (1%) 2 drops to each eye q 6 hours from day 1 through day 6. First d ose of Pred eye drops to be 1/2 hr before first Cytarabine dose on day 1. -Mitoxantrone 10mg/m2/day over 30 minutes IV on day 4-6 -Chemo Day: (HAM) / (3+7) Patient is a candidate for transplant based on Dx and prognostic feature PENDING. Reques t insurance approval for typing. HLA typing sent 05/27/15. He has two brothers for potentia l donors. #Pancytopenia: secondary to acute leukemia. Folate, B12 normal -supportive care #Supportive Care: Growth factor: Not indicated with this chemotherapy regimen. Labs: Continue to check CBC with diff daily Transfusion parameters: -Transfuse PRBCs for HCT <21% -Transfuse PPH for platelet count <10,000 or sooner PRN s/s bleeding. HEENT: #Left acute parotitis: largely resolved as of 06/12. pain started ~06/02 and developed acute swelling 06/[address] max/facial with contrast 06/07 confirmed parotitis, no abscess . ID consulted. Completed a course of zosyn (06/07-06/13) and added vancomycin 06/09-06/12 for additional staph coverage. ENT consulted and recommend abx as per ID and supportive measures (warm compresses, sialogogues, pain control, hydration). Acute pain treated with morphine P CA (06/07-06/11),Resolved. #Right side parotitis likely medication related: noted 06/16, similar to pain with acute par otitis. ID and ENT following (06/17) -Continue conservative management with warm compresses, sialogogues, pain control and hydr ation -Zosyn (06/17- ) -Vancomycin (06/17-06/18) No indication at this time, consider re-starting if symptoms wor sen. -Continue oxycodone PRN Cardiovascular: Prechemotherapy Echo results on 05/18: EF 60-65 %. Left ventricular diastol ic function is normal. #Poss Hx of Pericarditis: presented to OSH on several visits to ED with CP. Echo done at [facility] x 2 both normal, no noted pericarditis or effusions. He received a course of colchicine an d is now asymptomatic. Pulmonary: #Current Smoker: Smoking cessation counseling offered -Nicotine gum PRN -Consider Nicotine patch is symptoms not controlled GI: #CINV: Improved today. Scop patch stopped as did not help -Continue scheduled compazine and zofran /Renal: No acute issues Neurology: #Insomnia -Trazodone 25 mg at bedtime Dermatology: #Leg lesions: increasingly indurated and tender scattered lesions (3-4 on each leg). Derm c onsulted 06/09: biopsies for H+E and cultures done 06/09: negatiave -Change bandage daily: clean site, reapply vaseline and then cover with a bandage. -sutures should be removed on 06/23/2015. Reproductive: #Sperm banking: completed 05/27/15 prior to chemotherapy Infectious Disease: #Screening Tests: Heb B/C - negative, HIV- negative #Parotitis: see HEENT section above. #Prophylaxis: Bacterial: As above Fungal: Posaconazole, (held during HAM chemotherapy, restarted 06/17) Viral: Acyclovir PCP: Not indicated Fluid/Nutrition/Lytes: #Nutrition: Regular diet, No Kezia's yogurt or Kefir #Fluid: 1L NS PRN for PO intake <2L/day by 2200 #Lytes: Continue to check chemistries daily. Replace per supportive care protocol. Disposition: Anticipate 3-4 admission for induction chemotherapy. REBECCA Pérez NP [facility] [id number] [facility] Mailcode: [id number] [place] [address] Lainey Silva MD - 06/17/2015 10:05 PM PSTTransplant ID consult note: Asked by hematologic malignancy service/Dr. Lashonda Chapa to see patient re: parotitis. I saw & examined Mr. Khurram Kelly. Case & all aspects of ID management revie wed & discussed with ID fellow/Dr. Reynaldo Huang. I agree with the assessment & recommen dations as outlined by Dr. Huang in her note today, with the following additional commen ts: Patient last seen by me on 06/13, at which time empiric zosyn was changed back to levofloxac in prophylaxis. Reinduction HAM begun 06/11. Neutropenic but no fevers. Now, right paro tid region pain/swelling. No other complaints. Loose stools on prn Imodium. Feeling ot herwise well. No URI-type symptoms. On exam, appears well, nontoxic. Right parotid region swelling/bogginess & local tenderne ss. OP clear - good dentition. Right parotid region without swelling or local tenderness . Lungs clear. Heart regular, no appreciable murmur. Abdomen nontender. Sutures at p rior right calf biopsy site. No new rash. DATA noted & reviewed: WBC <0.1. ALT 79. 06/16 C.diff negative. Impression: AML with initial induction course complicated by left parotitis. Now, seems t o be having similar process on left, after a number of days without symptoms. No signs/sym ptoms of systemic infection. Wonder if drug or other provocative factor. Would involve E NT to consider cause for recurrent parotitis. While process is not infectious in etiology per se, with blocked drain he is at risk for infection - and considering severity of last ep isode, not uncover to empirically cover with antibiotics in setting of active inflammatory p rocess. Recommendations as outlined by Dr. Huang in her note today. Empiric zosyn/vancomycin (goal trough 10-15). ENT input. On prophylactic posaconazole & acyclovir. Will follow with you. Thank you. Lainey Arenas MD Lashonda Crandall MD - 06/17/2015 6:09 PM PSTHematologic Malignancies/Bone Marrow Transplant Inpatient Attending Progress Note: I rounded today, 06/17/2015, in conjunction with the [facility]. I saw the patient, reviewed the history and relevant studies and developed an assessment and plan. Subjective/Objective: pain right cheeck in area of parotid gland as well as swelling OP: clear, tenderness to touch+ Please see the [facility] documentation from today for the details regarding the assessment and pl an. Patients Hospital Problem List: Active Hospital Problems 1) *Acute myeloid leukemia (AML), M4 (HCC) 3) Immunocompromised state (HCC) 4) Electrolyte abnormality 5) Chemotherapy induced nausea and vomiting 6) Pancytopenia due to chemotherapy (HCC) 7) Loose stools 8) Parotiditis 9) Rhinitis 10) Multiple skin nodules 11) Prophylactic antibiotic 12) Transfusion of platelets during current hospitalization AML, normal cytogenetics, Nras mutated (40%), initially likely 80% blasts in 90% marrow -> 50% blast in 50% cellular marrow, day 7 of HAM reinduction. Recurrent- contralateral side parotitis, appreciate ID input, resume atbx, ENT consult. Lashonda Chapa MD [address] [facility] Mailcode: [facility] [place] [address] obyn Contreras N P - 06/17/2015 1:50 PM PST Daily NPP Note - Chemotherapy [facility] Attending: Lolis Merritt MD PCP: Pending Pcp ADDITION Date of Admission: 05/26/2015 Hematologic Malignancy: AML Reason for admission: Work-up and Induction Chemotherapy 24 Hour Events/Current Daily Plan: -Acute Myelomonocytic Leukemia, normal cytogenetics, [facility] genetrails 05/26 PENDING. S/p 3+7 induction. Day 14 bmbx with residual AML (50-60% cellularity with 50% blasts), now day 7 SMITH M re-induction. -Pancytopenic r/t treatment: Standard transfusion parameters. 1 platelets today for plt=8K, post platelet= 26. Discontinue post platelet counts at this time. Continue to administer fr eshest platelet product available. -Bradycardia likely medication induced (dexamethsone vs. Mitoxantrone): HR=47 this morning, asymptomatic. EKG 06/15 with sinus bradycardia, left ventricular hypertrophy. HR now in 60s, 70s, last dose of dexamethasone and Mitoxantrone 06/16. -Leg lesions w/unknown etiology: work up for Sweets vs infection negative thus far. Continu e would care as below and sutures should be removed on 06/23/2015. -Right side mouth pain (noted 06/16): pt states similar to pain previously with parotitis. S tart with warm compresses, pain control, PO hydration. ID and ENT re-consulted 06/17. Zosyn and Vancomycin re-started 06/17. -CINV: Chemotherapy completed 06/16, continue scheduled zofran. Resolved- discontinued sched uled compazine, available PRN. -Lytes: Standard electrolyte repletion parameters. No replacements required today. Subjective: Had increased right side mouth pain overnight with some relief with pain medica tions. Continues to massage cheek and uses sour candy per ENT recommendations. Objective: Last Vitals: BP 114/63 | Pulse 69 | Temp 36.5 C (97.7 F) | RR 16 | Ht 1.9 m (6' 2.8") | Wt 83.915 kg (185 lb) | SpO2 100% | BMI 23.25 kg/(m^2) 24 Hour Vital Min/Max: Systolic (24hrs), Av mmHg, Min:108 mmHg, Max:131 mmHg Diastolic (24hrs), Av mmHg, Min:62 mmHg, Max:77 mmHg Pulse Min: 47 Max: 78 Temp Min: 36.5 C (97.7 F) Max: 36.9 C (98.4 F) Resp Min: 16 Max: 18 SpO2 Min: 99 % Max: 100 % Intake/Output Summary (Last 24 hours) at 06/17/15 1350 Last data filed at 06/17/15 1300 Gross per 24 hour Intake 3950 ml Output 3610 ml Net 340 ml Physical Exam: General: This is a male in no acute distress. Sitting up in bed. HEENT: PERRL. Sclerae anicteric. Mucosa pink and moist. Right mild . Skin: Minimal petechial rash on legs. Biopsy site without signs of infection. Chest: Lungs clear to auscultation bilat. CV: RRR, no murmurs. Abdomen: S/NT/ND with NABS. No HSM appreciated. Extremities: Pulses strong and equal bilaterally. No c/c/e. NeuroPsych: Alert and oriented x 3. Grossly nonfocal exam. CVC: PICC line dressing dry and intact Laboratory Results: Recent Labs 06/14/15230506/15/15 23006/16/15 2350 NA 141 141 139 K 3.6 3.8 4.2 CL 111* 112* 111* BICARB 23 22 23 BUN 12 12 12 CR 0.64* 0.62* 0.56* GLU 149* 105* 126* CA 8.3* 8.2* 8.6 AST 40 38 21 ALT 83* 92* 79* AP 63 60 58 TBILI 0.5 0.6 0.4 TP 6.4 6.6 6.7 ALB 3.3* 3.5 3.6 Recent Labs 06/08/15 2345 06/09/15 2330 06/10/15 2310 06/14/15 2306 06/15/15 2300 06/16/15 2350 06/17/15 0655 WBC 0.65* 0.86* 1.02* < > 0.12* <0.10* <0.10* -- RBC 2.29* 2.40* 2.28* < > 2.65* 2.75* 2.58* -- HB 7.3* 7.6* 7.0* < > 8.1* 8.5* 8.1* -- HCT 20.3* 21.6* 20.5* < > 22.7* 23.4* 21.8* -- PLT 18* 12* 6* < > 14* 11* 8* 26* NEUTROPERC 0.0* 0.0* 0.0* -- -- -- -- -- LYMPHPERC 88.0* 87.5* 93.0* -- -- -- -- -- MONOPERC 7.4 8.0 3.5 -- -- -- -- -- BASOPERC 0.0 0.0 0.0 -- -- -- -- -- EOSPERC 0.0* 0.0* 0.0* -- -- -- -- -- < > = values in this interval not displayed. Meds: Reviewed on rounds, see current MAR for medication list SUMMARY OF PATIENT'S HOSPITALIZATION History of Present Illness: Khurram Kelly is 24 yo M with pmhx of pericarditis and new diagnosis of acute leukemia admitted for induction and management. Had been in usual state of [facility] 03/13/15 (the night of his wedding) at which time he noted bilateral ankle pain and swellin g. This persisted and worsened intermittently, notably when hunting on 03/19/15. Then after w ork, couldn't walk well 2/2 pain and inevitably couldn't bear weight on his feet. Presented to the ED and was diagnosed with cellulitis of the RLE, given antibiotics. During evaluation patient also noted to have pancytopenia with subsequent white blood cell differential ident ifying a predominance of early appearing monocytes. On 04/18/15 began to have pleuritic anterior chest pains, low-grade fevers occasionally up to 101. Also had onset of swelling and erythema over his left ankle, seen in the [facility]'s emergency room on 04/19/15. CT angiogram negative for blood clot. CBC demonstrated whi te count 15,300 with 59% monocytes, 3% immature monocytes, hemoglobin 11.8, platelets 146,00 0. He was apparently treated with antibiotics, also colchicine and anti-inflammatory agents - for possible dx of pericarditis - with complete resolution of his symptoms. After he finished the antibiotics and other medicines, the symptoms came back, repeat trip to the emergency room on 04/26/15. Repeat CT angiogram was again negative for pulmonary embo cramen or other abnormality. CBC showed white count 14,300 with 48% monocytes, 4% immature mono cytes, hemoglobin 12.8, platelets 180,000. He was again treated with the anti-inflammatory r maye colchicine, no antibiotics, again with complete resolution of symptoms. Was referred to Oncology and at that time had pleuritic anterior chest pain, low-grade feve rs. CBC demonstrated white count 17,600 with 66% monocytes, hemoglobin 11.8, platelets 115,0 00, did have 3.5% basophils. Review of his peripheral smear by pathology revealed many immat ure monocytes but no overt blasts. 05/19/15 had bone marrow bx confirming AML (see below) as well as flow cytometry. 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 -Results: 86% of blast equivalents, comprised of myeloblasts, monoblasts and promonocytes. Concurrent flow cytometry detected 23% myeloid blasts and 60% immature monocytic cells suppo rting this diagnosis. -Cytogenetics: Normal male karyotype -GeneTrails from OSH: triple negative for CEBPA , NPM1, FLT3 -Peripheral blood flow 05/27/15: Acute Myelomonocytic Leukemia (47% blasts and 30% monocyte s) -Cytogenetics: normal male karyotype -GeneTrails: PENDING -Day 14 BM Bx 06/09/15: Residual AML with 50-60% marrow cellularity and approximately 50% bl asts -Plan to send telomere length and chromosomal breakage when he recovers Treatment: -Chemotherapy regimen: standard induction with 3+7 started 05/27/15 -Idarubicin 12 mg/m2 daily x 3 days -Cytarabine 100 mg/m2 CI IV daily x 7 days. -Re-induction chemotherapy regimen: [facility] started 06/11/15 -Cytarabine 3000 mg/m2 over 3 hours q 12 hr x 6 doses total, day 1-3 -Pred Forte Eye drops (1%) 2 drops to each eye q 6 hours from day 1 through day 6. First d ose of Pred eye drops to be 1/2 hr before first Cytarabine dose on day 1. -Mitoxantrone 10mg/m2/day over 30 minutes IV on day 4-6 -Chemo Day: (HAM) / (3+7) Patient is a candidate for transplant based on Dx and prognostic feature PENDING. Reques t insurance approval for typing. HLA typing sent 05/27/15. He has two brothers for potentia l donors. #Pancytopenia: secondary to acute leukemia. Folate, B12 normal -supportive care #Supportive Care: Growth factor: Not indicated with this chemotherapy regimen. Labs: Continue to check CBC with diff daily Transfusion parameters: -Transfuse PRBCs for HCT <21% -Transfuse PPH for platelet count <10,000 or sooner PRN s/s bleeding. HEENT: #Left acute parotitis: largely resolved as of 06/12. pain started ~06/02 and developed acute swelling 06/[address] max/facial with contrast 06/07 confirmed parotitis, no abscess . ID consulted. Completed a course of zosyn (06/07-06/13) and added vancomycin 06/09-06/12 for additional staph coverage. ENT consulted and recommend abx as per ID and supportive measures (warm compresses, sialogogues, pain control, hydration). Acute pain treated with morphine P CA (06/07-06/11),Resolved. #Right side mouth pain: noted 06/16, similar to pain with acute parotitis. -Continue conservative management with warm compresses, sialogogues, pain control and hydr ation -ID consulted 06/17 -Zosyn (06/17- ) -Vancomycin (06/17- ) -Continue oxycodone PRN Cardiovascular: Prechemotherapy Echo results on 05/18: EF 60-65 %. Left ventricular diastol ic function is normal. #Poss Hx of Pericarditis: presented to OSH on several visits to ED with CP. Echo done at [facility] x 2 both normal, no noted pericarditis or effusions. He received a course of colchicine an d is now asymptomatic. Pulmonary: #Current Smoker: Smoking cessation counseling offered -Nicotine gum PRN -Consider Nicotine patch is symptoms not controlled GI: #CINV: Improved today. Scop patch stopped as did not help -Continue scheduled compazine and zofran /Renal: No acute issues Neurology: #Insomnia -Trazodone 25 mg at bedtime Dermatology: #Leg lesions: increasingly indurated and tender scattered lesions (3-4 on each leg). Derm c onsulted 06/09: biopsies for H+E and cultures done 06/09: negatiave -Change bandage daily: clean site, reapply vaseline and then cover with a bandage. -sutures should be removed on 06/23/2015. Reproductive: #Sperm banking: completed 05/27/15 prior to chemotherapy Infectious Disease: #Screening Tests: Heb B/C - negative, HIV- negative #Parotitis: see HEENT section above. #Prophylaxis: Bacterial: Zosyn, Vanco as above Fungal: Posaconazole, (held during HAM chemotherapy, restarted 06/17) Viral: Acyclovir PCP: Not indicated Fluid/Nutrition/Lytes: #Nutrition: Regular diet, No Kezia's yogurt or Kefir #Fluid: 1L NS PRN for PO intake <2L/day by 2200 #Lytes: Continue to check chemistries daily. Replace per supportive care protocol. Disposition: Anticipate 3-4 admission for induction chemotherapy. REBECCA Pérez NP [facility] [address] [facility] Mailcode: [facility] [place] [address] eterson, Robyn Hernandez NP - 06/16/2015 2:46 PM PST . Daily NPP Note - Chemotherapy Admit [facility] Attending: Lolis Merritt MD PCP: Pending Pcp ADDITION Date of Admission: 05/26/2015 Hematologic Malignancy: AML Reason for admission: Work-up and Induction Chemotherapy 24 Hour Events/Current Daily Plan: -Acute Myelomonocytic Leukemia, normal cytogenetics, [facility] genetrails PENDING. S/p 3+7 induc tion. Day 14 bmbx with residual AML (50-60% cellularity with 50% blasts), now day 6 HAM re-i nduction. -Pancytopenic r/t treatment: Standard transfusion parameters. None required today. -Bradycardia likely medication induced (dexamethsone vs. Mitoxantrone): lowest HR 44 on 06/14, asymptomatic. EKG 06/15 with sinus bradycardia, left ventricular hypertrophy. HR now in 60 s, 70s, last dose of dexamethasone and Mitoxantrone 06/16. -Leg lesions w/unknown etiology: work up for Sweets vs infection negative thus far. Continu e would care as below and sutures should be removed on 06/23/2015. -Right side mouth pain (noted 06/16): pt states similar to pain previously with parotitis. S tart with warm compresses, pain control, PO hydration. Consider switching antibiotics or ID consult if pain continues tonight. -CINV: Chemotherapy completed 06/16, continue scheduled zofran and compazine. Resolved. -Lytes: Standard electrolyte repletion parameters. No replacements required today. Subjective: Feeling overall well. Happy that chemotherapy is completed. Objective: Last Vitals: BP 128/77 | Pulse 70 | Temp 36.8 C (98.2 F) | RR 16 | Ht 1.9 m (6' 2.8") | Wt 83.915 kg (185 lb) | SpO2 100% | BMI 23.25 kg/(m^2) 24 Hour Vital Min/Max: Systolic (24hrs), Av mmHg, Min:108 mmHg, Max:133 mmHg Diastolic (24hrs), Av mmHg, Min:66 mmHg, Max:77 mmHg Pulse Min: 61 Max: 79 Temp Min: 36.3 C (97.3 F) Max: 37.1 C (98.8 F) Resp Min: 16 Max: 18 SpO2 Min: 99 % Max: 100 % Intake/Output Summary (Last 24 hours) at 06/16/15 1446 Last data filed at 06/16/15 1200 Gross per 24 hour Intake 4686 ml Output 3908 ml Net 778 ml Physical Exam: General: This is a male in no acute distress. Walking in room. HEENT: PERRL. Sclerae anicteric. Mucosa pink and moist without erythema. Skin: Minimal petechial rash on legs. Biopsy site without signs of infection. Chest: Lungs clear to auscultation bilat. CV: RRR, no murmurs. Abdomen: S/NT/ND with NABS. No HSM appreciated. Extremities: Pulses strong and equal bilaterally. No c/c/e. NeuroPsych: Alert and oriented x 3. Grossly nonfocal exam. CVC: PICC line dressing dry and intact Laboratory Results: Recent Labs 06/13/15 2309 06/14/15 2306 06/15/15 2300 NA 142 141 141 K 3.9 3.6 3.8 CL 112* 111* 112* BICARB 23 23 22 BUN 11 12 12 CR 0.65* 0.64* 0.62* GLU 155* 149* 105* CA 8.6 8.3* 8.2* AST 35 40 38 ALT 65* 83* 92* AP 70 63 60 TBILI 0.5 0.5 0.6 TP 6.4 6.4 6.6 ALB 3.2* 3.3* 3.5 Recent Labs 06/08/15 2345 06/09/15 2330 06/10/15 2310 06/13/15 2309 06/14/15 1122 06/14/15 2306 06/15/15 2300 WBC 0.65* 0.86* 1.02* < > <0.10* -- 0.12* <0.10* RBC 2.29* 2.40* 2.28* < > 2.63* -- 2.65* 2.75* HB 7.3* 7.6* 7.0* < > 8.1* -- 8.1* 8.5* HCT 20.3* 21.6* 20.5* < > 23.1* -- 22.7* 23.4* PLT 18* 12* 6* < > 9* 12* 14* 11* NEUTROPERC 0.0* 0.0* 0.0* -- -- -- -- -- LYMPHPERC 88.0* 87.5* 93.0* -- -- -- -- -- MONOPERC 7.4 8.0 3.5 -- -- -- -- -- BASOPERC 0.0 0.0 0.0 -- -- -- -- -- EOSPERC 0.0* 0.0* 0.0* -- -- -- -- -- < > = values in this interval not displayed. Meds: Reviewed on rounds, see current MAR for medication list SUMMARY OF PATIENT'S HOSPITALIZATION History of Present Illness: Khurram Kelly is 24 yo M with pmhx of pericarditis and new diagnosis of acute leukemia admitted for induction and management. Had been in usual state of [facility] [place] 03/13/15 (the night of his wedding) at which time he noted bilateral ankle pain and swellin g. This persisted and worsened intermittently, notably when hunting on 03/19/15. Then after w ork, couldn't walk well 2/2 pain and inevitably couldn't bear weight on his feet. Presented to the ED and was diagnosed with cellulitis of the RLE, given antibiotics. During evaluation patient also noted to have pancytopenia with subsequent white blood cell differential ident ifying a predominance of early appearing monocytes. On 04/18/15 began to have pleuritic anterior chest pains, low-grade fevers occasionally up to 101. Also had onset of swelling and erythema over his left ankle, seen in the [facility]' emergency room on 04/19/15. CT angiogram negative for blood clot. CBC demonstrated whi te count 15,300 with 59% monocytes, 3% immature monocytes, hemoglobin 11.8, platelets 146,00 0. He was apparently treated with antibiotics, also colchicine and anti-inflammatory agents - for possible dx of pericarditis - with complete resolution of his symptoms. After he finished the antibiotics and other medicines, the symptoms came back, repeat trip to the emergency room on 04/26/15. Repeat CT angiogram was again negative for pulmonary embo carmen or other abnormality. CBC showed white count 14,300 with 48% monocytes, 4% immature mono cytes, hemoglobin 12.8, platelets 180,000. He was again treated with the anti-inflammatory r maye colchicine, no antibiotics, again with complete resolution of symptoms. Was referred to Oncology and at that time had pleuritic anterior chest pain, low-grade feve rs. CBC demonstrated white count 17,600 with 66% monocytes, hemoglobin 11.8, platelets 115,0 00, did have 3.5% basophils. Review of his peripheral smear by pathology revealed many immat ure monocytes but no overt blasts. 05/19/15 had bone marrow bx confirming AML (see below) as well as flow cytometry. Hospitalization History: Hematology: #AML Pertinent Diagnostics: -BM Bx done at OSH 05/19/15, slides reviewed by DEANA and c/w Acute Myelomonocytic Leukemia in a 90% cellular marrow. -Results: 86% of blast equivalents, comprised of myeloblasts, monoblasts and promonocytes. Concurrent flow cytometry detected 23% myeloid blasts and 60% immature monocytic cells suppo rting this diagnosis. -Cytogenetics: Normal male karyotype -GeneTrails from OSH: triple negative for CEBPA , NPM1, FLT3 -Peripheral blood flow 05/27/15: Acute Myelomonocytic Leukemia (47% blasts and 30% monocyte s) -Cytogenetics: normal male karyotype -GeneTrails: PENDING -Day 14 BM Bx 06/09/15: Residual AML with 50-60% marrow cellularity and approximately 50% bl asts -Plan to send telomere length and chromosomal breakage when he recovers Treatment: -Chemotherapy regimen: standard induction with 3+7 started 05/27/15 -Idarubicin 12 mg/m2 daily x 3 days -Cytarabine 100 mg/m2 CI IV daily x 7 days. -Re-induction chemotherapy regimen: [facility]AM started 06/11/15 -Cytarabine 3000 mg/m2 over 3 hours q 12 hr x 6 doses total, day 1-3 -Pred Forte Eye drops (1%) 2 drops to each eye q 6 hours from day 1 through day 6. First d ose of Pred eye drops to be 1/2 hr before first Cytarabine dose on day 1. -Mitoxantrone 10mg/m2/day over 30 minutes IV on day 4-6 -Chemo Day: 6 (HAM) / 21 (3+7) Patient is a candidate for transplant based on Dx and prognostic feature PENDING. Reques t insurance approval for typing. HLA typing sent 05/27/15. He has two brothers for potentia l donors. #Pancytopenia: secondary to acute leukemia. Folate, B12 normal -supportive care #Supportive Care: Growth factor: Not indicated with this chemotherapy regimen. Labs: Continue to check CBC with diff daily Transfusion parameters: -Transfuse PRBCs for HCT <21% -Transfuse PPH for platelet count <10,000 or sooner PRN s/s bleeding. HEENT: #Left acute parotitis: largely resolved as of 06/12. pain started ~06/02 and developed acute swelling 06/[address] max/facial with contrast 06/07 confirmed parotitis, no abscess . ID consulted. Completed a course of zosyn (06/07-06/13) and added vancomycin 06/09-06/12 for additional staph coverage. ENT consulted and recommend abx as per ID and supportive measures (warm compresses, sialogogues, pain control, hydration). Acute pain treated with morphine P CA (06/07-06/11), now stopped with improvement in swelling and pain. Cardiovascular: Prechemotherapy Echo results on 05/18: EF 60-65 %. Left ventricular diastol ic function is normal. #Poss Hx of Pericarditis: presented to OSH on several visits to ED with CP. Echo done at [facility] x 2 both normal, no noted pericarditis or effusions. He received a course of colchicine an d is now asymptomatic. Pulmonary: #Current Smoker: Smoking cessation counseling offered -Nicotine gum PRN -Consider Nicotine patch is symptoms not controlled GI: #CINV: Improved today. Scop patch stopped as did not help -Continue scheduled compazine and zofran /Renal: No acute issues Neurology: #Insomnia -Trazodone 25 mg at bedtime Dermatology: #Leg lesions: increasingly indurated and tender scattered lesions (3-4 on each leg). Derm c onsulted 06/09: biopsies for H+E and cultures done 06/09: negatiave -Change bandage daily: clean site, reapply vaseline and then cover with a bandage. -sutures should be removed on 06/23/2015. Reproductive: #Sperm banking: completed 05/27/15 prior to chemotherapy Infectious Disease: #Screening Tests: Heb B/C - negative, HIV- negative #Parotitis: see HEENT section above. #Prophylaxis: Bacterial: Levaquin -For first neutropenic fever, preciado cx, CXR, d/c Levofloxacin and begin Cefepime for empiric broadspectrum coverage. Fungal: Posaconazole, level 06/08 adequate at 1.1 - Posa now on HOLD with HAM chemotherapy, scheduled to restart on 06/17 Viral: Acyclovir PCP: Not indicated Fluid/Nutrition/Lytes: #Nutrition: Regular diet, No Kezia's yogurt or Kefir #Fluid: 1L NS PRN for PO intake <2L/day by 2200 #Lytes: Continue to check chemistries daily. Replace per supportive care protocol. Disposition: Anticipate 3-4 admission for induction chemotherapy. REBECCA Pérez NP [facility] [address] [facility] Mailcode: [facility] [place] [address] Lolis Gaxiola MD - 06/16/2015 12:15 PM PSTHematologic Malignancies/Bone Marrow Transplant Inpatient At [facility] Note: Hospital course summary: Acute Myelomonocytic Leukemia, normal cytogenetics, [facility] genetrails PENDING. S/p 3+7 induct ion. Day 14 bmbx with residual AML (50-60% cellularity with 50% blasts), inititiated HAM re- induction, D5. Left sided parotitis: at worst on 06/07, now basically resolved. Only slightly tender to pa lpation. -Stopped vanco 06/12/2015. Continue Zosyn for now. Move to levofloxacin 06/14/2015 -Leg lesions: Improving. Derm consulted 06/09: biopsies for H+E and cultures done 06/09: so f ar negatiave. Wound care instructions for biopsy sites on the right calf: -change bandage daily: clean site, reapply vaseline and then cover with a bandage. -sutures should be removed on 06/23/2015. I rounded today, 06/16/2015, in conjunction with the Advanced Practice Provider. I saw the patient, reviewed the history and relevant studies and developed an assessment an d plan. Subjective/Objective: Patient feeling better this am, no further nausea. Spirits good. Gen-looks well,nad Skin-lesions on lower extremities much improved Lungs-clear to auscultation, good air movement Cor-RRR, normal s1, s2 Please see the Advanced Practice Provider documentation from today for the details regardin g the assessment and plan. Principal Problem: Acute myeloid leukemia (AML), M4 (HCC) Active Problems: Immunocompromised state (HCC) Electrolyte abnormality Chemotherapy induced nausea and vomiting Pancytopenia due to chemotherapy (HCC) Loose stools Parotiditis Rhinitis Multiple skin nodules Prophylactic antibiotic Transfusion of platelets during current hospitalization -using zofran intravenous round the clock with good effect. -bradycardia improved. Checked 12 lead EKG. Normal QTC. Bradycardia felt possibly to be sec ondary to dexamethasone. (last dose given this am). No further bradycardia this am. -continue levofloxacin. Lolis Merritt MD pager: [phone] Latonya Wilkerson ANP - 06/15/2015 1:46 PM PST Daily NPP Note - [facility]otherapy [facility] Attending: Lolis Merritt MD PCP: Pending Pcp ADDITION Date of Admission: 05/26/2015 Hematologic Malignancy: AML Reason for admission: Work-up and Induction Chemotherapy 24 Hour Events/Current Daily Plan: -Acute Myelomonocytic Leukemia, normal cytogenetics, [facility] genetrails PENDING. S/p 3+7 induc tion. Day 14 bmbx with residual AML (50-60% cellularity with 50% blasts), now day 5 HAM re-i nduction. -Pancytopenic: as anticipated with recent chemo. Standard transfusion parameters. None tod ay. -Bradycardia: for the past several days as low as 40, asymptomatic. EKG PENDING. -Leg lesions: unknown etiology with work up negative thus far. Improved overall. Continue w ould care as below and -sutures should be removed on 06/23/2015. -CINV: Change pre-chemo zofran to IV form and continue scheduled compazine with improvement -Lytes: Standard electrolyte repletion parameters. None needed today. Subjective: Feeling much better today with nausea under better control. Anticipating visit with his son today. Objective: Last Vitals: BP 120/64 | Pulse 62 | Temp 36.9 C (98.4 F) | RR 18 | Ht 1.9 m (6' 2.8") | Wt 83.915 kg (185 lb) | SpO2 100% | BMI 23.25 kg/(m^2) 24 Hour Vital Min/Max: Systolic (24hrs), Av mmHg, Min:120 mmHg, Max:140 mmHg Diastolic (24hrs), Av mmHg, Min:64 mmHg, Max:76 mmHg Pulse Min: 45 Max: 73 Temp Min: 36.8 C (98.2 F) Max: 37.1 C (98.8 F) Resp Min: 16 Max: 18 SpO2 Min: 98 % Max: 100 % Intake/Output Summary (Last 24 hours) at 06/15/15 1346 Last data filed at 06/15/15 1246 Gross per 24 hour Intake 4976 ml Output 3955 ml Net 1021 ml Physical Exam: General: This is a male in no acute distress. Sitting up in bed. HEENT: PERRL. Sclerae anicteric. Mucosa pink and moist without erythema. No longer tender ness over left mandible just below ear. Skin: Petechial rash on legs fading. Chest: Lungs clear to auscultation bilat. CV: RRR, no murmurs. Abdomen: S/NT/ND with NABS. No HSM appreciated. Extremities: Pulses strong and equal bilaterally. No c/c/e. NeuroPsych: Alert and oriented x 3. Grossly nonfocal exam. CVC: PICC line dressing dry and intact Laboratory Results: Recent Labs 06/12/15 2317 06/13/15 1319 06/13/15 2309 06/14/15 2306 NA 142 143 142 141 K 4.1 3.6 3.9 3.6 CL 113* 112* 112* 111* BICARB 24 24 23 23 BUN 14 13 11 12 CR 0.72 0.79 0.65* 0.64* GLU 172* 121* 155* 149* CA 8.5* 8.6 8.6 8.3* AST 39 -- 35 40 ALT 68* -- 65* 83* AP 80 -- 70 63 TBILI 0.3 -- 0.5 0.5 TP 6.7 -- 6.4 6.4 ALB 3.4* -- 3.2* 3.3* Recent Labs 06/08/15 2345 06/09/15 2330 06/10/15 2310 06/13/15 1319 06/13/15 2309 06/14/15 1122 06/14/15 2306 WBC 0.65* 0.86* 1.02* < > 0.25* <0.10* -- 0.12* RBC 2.29* 2.40* 2.28* < > 2.44* 2.63* -- 2.65* HB 7.3* 7.6* 7.0* < > 7.6* 8.1* -- 8.1* HCT 20.3* 21.6* 20.5* < > 20.9* 23.1* -- 22.7* PLT 18* 12* 6* < > 11* 9* 12* 14* NEUTROPERC 0.0* 0.0* 0.0* -- -- -- -- -- LYMPHPERC 88.0* 87.5* 93.0* -- -- -- -- -- MONOPERC 7.4 8.0 3.5 -- -- -- -- -- BASOPERC 0.0 0.0 0.0 -- -- -- -- -- EOSPERC 0.0* 0.0* 0.0* -- -- -- -- -- < > = values in this interval not displayed. Meds: Reviewed on rounds, see current MAR for medication list SUMMARY OF PATIENT'S HOSPITALIZATION History of Present Illness: Khurram Kelly is 24 yo M with pmhx of pericarditis and new diagnosis of acute leukemia admitted for induction and management. Had been in usual state of [facility] 03/13/15 (the night of his wedding) at which time he noted bilateral ankle pain and swellin g. This persisted and worsened intermittently, notably when hunting on 03/19/15. Then after w ork, couldn't walk well 2/2 pain and inevitably couldn't bear weight on his feet. Presented to the ED and was diagnosed with cellulitis of the RLE, given antibiotics. During evaluation patient also noted to have pancytopenia with subsequent white blood cell differential ident ifying a predominance of early appearing monocytes. On 04/18/15 began to have pleuritic anterior chest pains, low-grade fevers occasionally up to 101. Also had onset of swelling and erythema over his left ankle, seen in the [facility]' emergency room on 04/19/15. CT angiogram negative for blood clot. CBC demonstrated whi te count 15,300 with 59% monocytes, 3% immature monocytes, hemoglobin 11.8, platelets 146,00 0. He was apparently treated with antibiotics, also colchicine and anti-inflammatory agents - for possible dx of pericarditis - with complete resolution of his symptoms. After he finished the antibiotics and other medicines, the symptoms came back, repeat trip to the emergency room on 04/26/15. Repeat CT angiogram was again negative for pulmonary embo carmen or other abnormality. CBC showed white count 14,300 with 48% monocytes, 4% immature mono cytes, hemoglobin 12.8, platelets 180,000. He was again treated with the anti-inflammatory r maye colchicine, no antibiotics, again with complete resolution of symptoms. Was referred to Oncology and at that time had pleuritic anterior chest pain, low-grade feve rs. CBC demonstrated white count 17,600 with 66% monocytes, hemoglobin 11.8, platelets 115,0 00, did have 3.5% basophils. Review of his peripheral smear by pathology revealed many immat ure monocytes but no overt blasts. 05/19/15 had bone marrow bx confirming AML (see below) as well as flow cytometry. 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 -Results: 86% of blast equivalents, comprised of myeloblasts, monoblasts and promonocytes. Concurrent flow cytometry detected 23% myeloid blasts and 60% immature monocytic cells suppo rting this diagnosis. -Cytogenetics: Normal male karyotype -GeneTrails from OSH: triple negative for CEBPA , NPM1, FLT3 -Peripheral blood flow 05/27/15: Acute Myelomonocytic Leukemia (47% blasts and 30% monocyte s) -Cytogenetics: normal male karyotype -GeneTrails: PENDING -Day 14 BM Bx 06/09/15: Residual AML with 50-60% marrow cellularity and approximately 50% bl asts -Plan to send telomere length and chromosomal breakage when he recovers Treatment: -Chemotherapy regimen: standard induction with 3+7 started 05/27/15 -Idarubicin 12 mg/m2 daily x 3 days -Cytarabine 100 mg/m2 CI IV daily x 7 days. -Re-induction chemotherapy regimen: HAM started 06/11/15 -Cytarabine 3000 mg/m2 over 3 hours q 12 hr x 6 doses total, day 1-3 -Pred Forte Eye drops (1%) 2 drops to each eye q 6 hours from day 1 through day 6. First d ose of Pred eye drops to be 1/2 hr before first Cytarabine dose on day 1. -Mitoxantrone 10mg/m2/day over 30 minutes IV on day 4-6 -Chemo Day: 5 (HAM) / 20 (3+7) Patient is a candidate for transplant based on Dx and prognostic feature PENDING. Reques t insurance approval for typing. HLA typing sent 05/27/15. He has two brothers for potentia l donors. #Pancytopenia: secondary to acute leukemia. Folate, B12 normal -supportive care #Supportive Care: Growth factor: Not indicated with this chemotherapy regimen. Labs: Continue to check CBC with diff daily Transfusion parameters: -Transfuse PRBCs for HCT <21% -Transfuse PPH for platelet count <10,000 or sooner PRN s/s bleeding. HEENT: #Left acute parotitis: largely resolved as of 06/12. pain started ~06/02 and developed acute swelling 06/[address] max/facial with contrast 06/07 confirmed parotitis, no abscess . ID consulted. Completed a course of zosyn (06/07-06/13) and added vancomycin 06/09-06/12 for additional staph coverage. ENT consulted and recommend abx as per ID and supportive measures (warm compresses, sialogogues, pain control, hydration). Acute pain treated with morphine P CA (06/07-06/11), now stopped with improvement in swelling and pain. Cardiovascular: Prechemotherapy Echo results on 05/18: EF 60-65 %. Left ventricular diastol ic function is normal. #Poss Hx of Pericarditis: presented to OSH on several visits to ED with CP. Echo done at [facility] x 2 both normal, no noted pericarditis or effusions. He received a course of colchicine an d is now asymptomatic. Pulmonary: #Current Smoker: Smoking cessation counseling offered -Nicotine gum PRN -Consider Nicotine patch is symptoms not controlled GI: #CINV: Improved today. Scop patch stopped as did not help -Continue scheduled compazine -Continue IV zofran with chemo. /Renal: No acute issues Neurology: #Insomnia -Trazodone 25 mg at bedtime Dermatology: #Leg lesions: increasingly indurated and tender scattered lesions (3-4 on each leg). Derm c onsulted 06/09: biopsies for H+E and cultures done 06/09: negatiave -Change bandage daily: clean site, reapply vaseline and then cover with a bandage. -sutures should be removed on 06/23/2015. Reproductive: #Sperm banking: completed 05/27/15 prior to chemotherapy Infectious Disease: #Screening Tests: Heb B/C - negative, HIV- negative #Parotitis: see HEENT section above. #Prophylaxis: Bacterial: Levaquin -For first neutropenic fever, preciado cx, CXR, d/c Levofloxacin and begin Cefepime for empiric broadspectrum coverage. Fungal: Posaconazole, level 06/08 adequate at 1.1 - Posa now on HOLD with HAM chemotherapy, scheduled to restart on 06/17 Viral: Acyclovir PCP: Not indicated Fluid/Nutrition/Lytes: #Nutrition: Regular diet, No Kezia's yogurt or Kefir #Fluid: 1L NS PRN for PO intake <2L/day by 2200 #Lytes: Continue to check chemistries daily. Replace per supportive care protocol. Disposition: Anticipate 3-4 admission for induction chemotherapy. RONALD Merrill ANP [facility] [id number] [facility] Mailcode: [id number] [place] [address] Lolis Gaxiola MD - 06/15/2015 11:46 AM PSTHematologic Malignancies/Bone Marrow Transplant Inpatient Atten ding Progress Note: Hospital course summary: Acute Myelomonocytic Leukemia, normal cytogenetics, [facility] genetrails PENDING. S/p 3+7 induct ion. Day 14 bmbx with residual AML (50-60% cellularity with 50% blasts), inititiated HAM re- induction, D5. Left sided parotitis: at worst on 06/07, now basically resolved. Only slightly tender to pa lpation. -Stopped vanco 06/12/2015. Continue Zosyn for now. Move to levofloxacin 06/14/2015 -Leg lesions: Improving. Derm consulted 06/09: biopsies for H+E and cultures done 06/09: so f ar negatiave. Wound care instructions for biopsy sites on the right calf: -change bandage daily: clean site, reapply vaseline and then cover with a bandage. -sutures should be removed on 06/23/2015. I rounded today, 06/15/2015, in conjunction with the Advanced Practice Provider. I saw the patient, reviewed the history and relevant studies and developed an assessment an d plan. Subjective/Objective: Patient with better control overall with nausea and vomiting. Zofran helpful. Patient with bradycardia though not symptomatic from this. Gen-looks well Lungs-clear to auscultation, good air movement Cor-RRR, normal s1, s2 Please see the Advanced Practice Provider documentation from today for the details regardin g the assessment and plan. Principal Problem: Acute myeloid leukemia (AML), M4 (HCC) Active Problems: Immunocompromised state (HCC) Electrolyte abnormality Chemotherapy induced nausea and vomiting Pancytopenia due to chemotherapy (HCC) Loose stools Parotiditis Rhinitis Multiple skin nodules Prophylactic antibiotic Transfusion of platelets during current hospitalization -using zofran intravenous form round the clock. Noting bradycardia. Will check 12 lead EKG. -continue levo today. Lolis Merritt MD pager: [phone] Rosa Francis PA - 06/14/2015 3:01 PM PSTFormatting of this note might be different from the origi nal. Daily NPP Note - Chemotherapy [facility] Attending: Lolis Merritt MD PCP: Pending Pcp ADDITION Date of Admission: 05/26/2015 Hematologic Malignancy: AML Reason for admission: Work-up and Induction Chemotherapy 24 Hour Events/Current Daily Plan: -Acute Myelomonocytic Leukemia, normal cytogenetics, [facility] genetrails PENDING. S/p 3+7 induc tion. Day 14 bmbx with residual AML (50-60% cellularity with 50% blasts), now day 4 HAM re-i nduction. -Pancytopenic: as anticipated with recent chemo. Standard transfusion parameters. Transfus e platelets today. -Lytes: Standard electrolyte repletion parameters. None needed today. -Left sided parotitis: Largely resolved. Change from zosyn back to levofloxacin prophylaxis today (06/14), at which point he will have received 1 week of zosyn. Will transition back to IV antibiotics if he develops a fever. -Leg lesions: Improved/resolved. Derm consulted 06/09: biopsies for H+E and cultures done : negative. Change bandage daily: clean site, reapply vaseline and then cover with a jacobo ge. -sutures should be removed on 06/23/2015. -CINV: Change pre-chemo zofran to IV form. Continue scheduled compazine started 06/13. Subjective: Feeling wiped out today with nausea and vomited this morning. Feeling like this chemo is being harder on him overall. Feels that IV zofran works better for him than PO. Objective: Last Vitals: BP 109/95 | Pulse 48 | Temp 36.9 C (98.4 F) | RR 16 | Ht 1.9 m (6' 2.8") | Wt 81.666 kg (180 lb 0.6 oz) | SpO2 100% | BMI 22.62 kg/(m^2) 24 Hour Vital Min/Max: Systolic (24hrs), Av mmHg, Min:109 mmHg, Max:140 mmHg Diastolic (24hrs), Av mmHg, Min:59 mmHg, Max:95 mmHg Pulse Min: 44 Max: 51 Temp Min: 36.7 C (98.1 F) Max: 37 C (98.6 F) Resp Min: 16 Max: 18 SpO2 Min: 98 % Max: 100 % Intake/Output Summary (Last 24 hours) at 06/14/15 1501 Last data filed at 06/14/15 1341 Gross per 24 hour Intake 7782.5 ml Output 5413 ml Net 2369.5 ml Physical Exam: General: This is a male in no acute distress. Sitting up in bed. HEENT: PERRL. Sclerae anicteric. Mucosa pink and moist without erythema. Very mild tender ness over left mandible just below ear. Skin: Petechial rash on legs fading. Chest: Lungs clear to auscultation bilat. CV: RRR, no murmurs. Abdomen: S/NT/ND with NABS. No HSM appreciated. Extremities: Pulses strong and equal bilaterally. No c/c/e. NeuroPsych: Alert and oriented x 3. Grossly nonfocal exam. CVC: PICC line dressing dry and intact Laboratory Results: Recent Labs 06/11/15 2330 06/12/15 2317 06/13/15 1319 06/13/15 2309 NA 139 < > 142 143 142 K 4.4 < > 4.1 3.6 3.9 CL 111* < > 113* 112* 112* BICARB 22 < > 24 24 23 BUN 12 < > 14 13 11 CR 0.77 < > 0.72 0.79 0.65* GLU 148* < > 172* 121* 155* CA 8.8 < > 8.5* 8.6 8.6 AST 27 -- 39 -- 35 ALT 41 -- 68* -- 65* AP 87 -- 80 -- 70 TBILI 0.4 -- 0.3 -- 0.5 TP 7.3 -- 6.7 -- 6.4 ALB 3.6 -- 3.4* -- 3.2* < > = values in this interval not displayed. Recent Labs 06/08/15 2345 06/09/15 2330 06/10/15 2310 06/12/15 2317 06/13/15 1319 06/13/15 2309 06/14/15 1122 WBC 0.65* 0.86* 1.02* < > 0.16* 0.25* <0.10* -- RBC 2.29* 2.40* 2.28* < > 2.50* 2.44* 2.63* -- HB 7.3* 7.6* 7.0* < > 7.9* 7.6* 8.1* -- HCT 20.3* 21.6* 20.5* < > 21.6* 20.9* 23.1* -- PLT 18* 12* 6* < > 8* 11* 9* 12* NEUTROPERC 0.0* 0.0* 0.0* -- -- -- -- -- LYMPHPERC 88.0* 87.5* 93.0* -- -- -- -- -- MONOPERC 7.4 8.0 3.5 -- -- -- -- -- BASOPERC 0.0 0.0 0.0 -- -- -- -- -- EOSPERC 0.0* 0.0* 0.0* -- -- -- -- -- < > = values in this interval not displayed. Meds: Reviewed on rounds, see current MAR for medication list SUMMARY OF PATIENT'S HOSPITALIZATION History of Present Illness: Khurram Kelly is 24 yo M with pmhx of pericarditis and new diagnosis of acute leukemia admitted for induction and management. Had been in usual state of [facility] 03/13/15 (the night of his wedding) at which time he noted bilateral ankle pain and swellin g. This persisted and worsened intermittently, notably when hunting on 03/19/15. Then after w ork, couldn't walk well 2/2 pain and inevitably couldn't bear weight on his feet. Presented to the ED and was diagnosed with cellulitis of the RLE, given antibiotics. During evaluation patient also noted to have pancytopenia with subsequent white blood cell differential ident ifying a predominance of early appearing monocytes. On 04/18/15 began to have pleuritic anterior chest pains, low-grade fevers occasionally up to 101. Also had onset of swelling and erythema over his left ankle, seen in the [facility]' emergency room on 04/19/15. CT angiogram negative for blood clot. CBC demonstrated whi te count 15,300 with 59% monocytes, 3% immature monocytes, hemoglobin 11.8, platelets 146,00 0. He was apparently treated with antibiotics, also colchicine and anti-inflammatory agents - for possible dx of pericarditis - with complete resolution of his symptoms. After he finished the antibiotics and other medicines, the symptoms came back, repeat trip to the emergency room on 04/26/15. Repeat CT angiogram was again negative for pulmonary embo carmen or other abnormality. CBC showed white count 14,300 with 48% monocytes, 4% immature mono cytes, hemoglobin 12.8, platelets 180,000. He was again treated with the anti-inflammatory r maye colchicine, no antibiotics, again with complete resolution of symptoms. Was referred to Oncology and at that time had pleuritic anterior chest pain, low-grade feve rs. CBC demonstrated white count 17,600 with 66% monocytes, hemoglobin 11.8, platelets 115,0 00, did have 3.5% basophils. Review of his peripheral smear by pathology revealed many immat ure monocytes but no overt blasts. 05/19/15 had bone marrow bx confirming AML (see below) as well as flow cytometry. Hospitalization History: Hematology: #AML Pertinent Diagnostics: -BM Bx done at OSH 05/19/15, slides reviewed by DEANA and c/w Acute Myelomonocytic Leukemia in a 90% cellular marrow. -Results: 86% of blast equivalents, comprised of myeloblasts, monoblasts and promonocytes. Concurrent flow cytometry detected 23% myeloid blasts and 60% immature monocytic cells suppo rting this diagnosis. -Cytogenetics: Normal male karyotype -GeneTrails from [facility]: triple negative for CEBPA , NPM1, FLT3 -Peripheral blood flow 05/27/15: Acute Myelomonocytic Leukemia (47% blasts and 30% monocyte s) -Cytogenetics: normal male karyotype -GeneTrails: PENDING -Day 14 BM Bx 06/09/15: Residual AML with 50-60% marrow cellularity and approximately 50% bl asts -Plan to send telomere length and chromosomal breakage when he recovers Treatment: -Chemotherapy regimen: standard induction with 3+7 started 05/27/15 -Idarubicin 12 mg/m2 daily x 3 days -Cytarabine 100 mg/m2 CI IV daily x 7 days. -Re-induction chemotherapy regimen: HAM started 06/11/15 -Cytarabine 3000 mg/m2 over 3 hours q 12 hr x 6 doses total, day 1-3 -Pred Forte Eye drops (1%) 2 drops to each eye q 6 hours from day 1 through day 6. First d ose of Pred eye drops to be 1/2 hr before first Cytarabine dose on day 1. -Mitoxantrone 10mg/m2/day over 30 minutes IV on day 4-6 -Chemo Day: (HAM) / (3+7) Patient is a candidate for transplant based on Dx and prognostic feature PENDING. Reques t insurance approval for typing. HLA typing sent 05/27/15. He has two brothers for potentia l donors. #Pancytopenia: secondary to acute leukemia. Folate, B12 normal -supportive care #Supportive Care: Growth factor: Not indicated with this chemotherapy regimen. Labs: Continue to check CBC with diff daily Transfusion parameters: -Transfuse PRBCs for HCT <21% -Transfuse PPH for platelet count <10,000 or sooner PRN s/s bleeding. HEENT: #Left acute parotitis: largely resolved as of 06/12. pain started ~06/02 and developed acute swelling 06/07 overnight. -CT max/facial with contrast 06/07 - Enlarged and heterogeneously enhancing left parotid g land with adjacent subcutaneous soft tissue edema and reactive lymphadenopathy. No abscess. -ID consulted and following: started zosyn 06/07, added vancomycin 06/09-06/12 for additiona l staph coverage. Transitioned back to oral levaquin on 06/14. -ENT consulted and following peripherally: recommend abx as recommended per ID and support mickey measures (warm compresses, sialogogues, pain control, hydration) -was on Morphine [employer] (06/07-06/11), now stopped with improvement in swelling and pain. Now with PRN narcotics available. Cardiovascular: Prechemotherapy Echo results on 05/18: EF 60-65 %. Left ventricular diastol ic function is normal. #Poss Hx of Pericarditis: presented to OSH on several visits to ED with CP. Echo done at [facility] x 2 both normal, no noted pericarditis or effusions. He received a course of colchicine an d is now asymptomatic. Pulmonary: #Current Smoker: Smoking cessation counseling offered -Nicotine gum PRN -Consider Nicotine patch is symptoms not controlled GI: #CINV: was on scop patch, no stopped as did not help -scheduled compazine, getting max dose zofran with chemo. /Renal: No acute issues Neurology: #Insomnia -Trazodone 25 mg at bedtime Dermatology: #Leg lesions: increasingly indurated and tender scattered lesions (3-4 on each leg). -Derm consulted 06/09: biopsies for H+E and cultures done 06/09: negatiave -Wound care instructions for biopsy sites on the right calf: -change bandage daily: clean site, reapply vaseline and then cover with a bandage. -sutures should be removed on 06/23/2015. Reproductive: #Sperm banking: completed 05/27/15 prior to chemotherapy Infectious Disease: #Screening Tests: Heb B/C - negative, HIV- negative #Parotitis: see HEENT section above. ID following. -Zosyn (06/07-06/14) -Vanco (06/08-06/12) stopped with negative cultures and resolved parotitis. #Prophylaxis: Bacterial: Levaquin -For first neutropenic fever, preciado cx, CXR, d/c Levofloxacin and begin Cefepime for empiric broadspectrum coverage. Fungal: Posaconazole, level 06/08 adequate at 1.1 - Posa now on HOLD with HAM chemotherapy, scheduled to restart on 06/17 Viral: Acyclovir PCP: Not indicated Fluid/Nutrition/Lytes: #Nutrition: Regular diet, No Kezia's yogurt or Kefir #Fluid: 1L NS PRN for PO intake <2L/day by 2200 #Lytes: Continue to check chemistries daily. Replace per supportive care protocol. Disposition: Anticipate 3-4 admission for induction chemotherapy. Kary Tracey PA-C [facility] [facility] Mailcode: [id number] [place] [id number] Debby Gaxiola MD - 06/14/2015 8:28 AM PSTHematologic Malignancies/Bone Marrow Transplant Inpatient Attending Progress Note: Hospital course summary: Acute Myelomonocytic Leukemia, normal cytogenetics, [facility] genetrails PENDING. S/p 3+7 induct ion. Day 14 bmbx with residual AML (50-60% cellularity with 50% blasts), inititiated HAM re- induction, D4. Left sided parotitis: at worst on 06/07, now basically resolved. Only slightly tender to pa lpation. -Stopped vanco 06/12/2015. Continue Zosyn for now. Move to levofloxacin 06/14/2015/ -Leg lesions: Improving. Derm consulted 06/09: biopsies for H+E and cultures done 06/09: so f ar negatiave. Wound care instructions for biopsy sites on the right calf: -change bandage daily: clean site, reapply vaseline and then cover with a bandage. -sutures should be removed on 06/23/2015. I rounded today, 06/13/2015, in conjunction with the Advanced Practice Provider. I saw the patient, reviewed the history and relevant studies and developed an assessment an d plan. Subjective/Objective: Patient continues to have nausea and vomiting. Taking good orals. Gen-looks well, no distress HEENT-small bleb along right buccal mucosa-unchanged Lungs-clear to auscultation, good air movement Please see the Advanced Practice Provider documentation from today for the details regardin g the assessment and plan. Principal Problem: Acute myeloid leukemia (AML), M4 (HCC) Active Problems: Immunocompromised state (HCC) Electrolyte abnormality Chemotherapy induced nausea and vomiting Pancytopenia due to chemotherapy (HCC) Loose stools Parotiditis Rhinitis Multiple skin nodules Prophylactic antibiotic Transfusion of platelets during current hospitalization -will change round the clock zofran to intravenous form as patient states this works better . Will add haldol as prn. -will move from zosyn to levo today. -will decrease intravenous fluids. Lolis Merritt MD pager: [phone] osa Tracey PA - 06/13/2015 1:45 PM PSTFormatting of this note might be different from the origi nal. Daily NPP Note - Chemotherapy [facility] Attending: Lolis Merritt MD PCP: Pending Pcp ADDITION Date of Admission: 05/26/2015 Hematologic Malignancy: AML Reason for admission: Work-up and Induction Chemotherapy 24 Hour Events/Current Daily Plan: -Acute Myelomonocytic Leukemia, normal cytogenetics, [facility] genetrails PENDING. S/p 3+7 induc tion. Day 14 bmbx with residual AML (50-60% cellularity with 50% blasts), now day 3 HAM re-i nduction. -Pancytopenic: as anticipated with recent chemo. Standard transfusion parameters. Transfus e platelets today. -Lytes: Standard electrolyte repletion parameters. Replace Phos today. -Left sided parotitis: at worst on 06/07, now improved, almost resolved. 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 Stopped vanco 06/12. Continue Zosyn for now. -ID suggests change back to levofloxacin prophylaxis tomorrow (06/14), at which point he wi ll have received 1 week of zosyn (and 5 days of vancomycin). -Leg lesions: Improving. Derm consulted 06/09: biopsies for H+E and cultures done 06/09: so f ar negative. Wound care instructions for biopsy sites on the right calf: -change bandage daily: clean site, reapply vaseline and then cover with a bandage. -sutures should be removed on 06/23/2015. -CINV: on max dose zofran for chemo premeds. Start scheduled compazine today 06/13. Subjective: having nausea and vomiting. Threw up twice this morning. Objective: Last Vitals: BP 123/56 | Pulse 53 | Temp 36.8 C (98.2 F) | RR 16 | Ht 1.9 m (6' 2.8") | Wt 81.666 kg (180 lb 0.6 oz) | SpO2 100% | BMI 22.62 kg/(m^2) 24 Hour Vital Min/Max: Systolic (24hrs), Av mmHg, Min:121 mmHg, Max:134 mmHg Diastolic (24hrs), Av mmHg, Min:56 mmHg, Max:67 mmHg Pulse Min: 53 Max: 67 Temp Min: 36.7 C (98.1 F) Max: 36.9 C (98.4 F) Resp Min: 16 Max: 18 SpO2 Min: 98 % Max: 100 % Intake/Output Summary (Last 24 hours) at 06/13/15 1345 Last data filed at 06/13/15 1230 Gross per 24 hour Intake 5069 ml Output 4400 ml Net 669 ml Physical Exam: General: This is a male in no acute distress. Sitting up in bed. HEENT: PERRL. Sclerae anicteric. Mucosa pink and moist without erythema. Very mild tender ness over left mandible just below ear. Skin: Improving scattered indurated erythematous and mildly tender lesions on bilateral l ower legs. Chest: Lungs clear to auscultation bilat. CV: RRR, no murmurs. Abdomen: S/NT/ND with NABS. No HSM appreciated. Extremities: Pulses strong and equal bilaterally. No c/c/e. NeuroPsych: Alert and oriented x 3. Grossly nonfocal exam. CVC: PICC line dressing dry and intact Laboratory Results: Recent Labs 06/10/15230906/11/15232906/12/15 11106/12/15 231 NA 139 139 140 142 K 4.1 4.4 3.4 4.1 CL 108 111* 109* 113* BICARB 25 22 22 24 BUN 7 12 11 14 CR 0.87 0.77 0.80 0.72 GLU 92 148* 133* 172* CA 8.0* 8.8 9.1 8.5* AST 16 27 -- 39 ALT 29 41 -- 68* AP 70 87 -- 80 TBILI 0.4 0.4 -- 0.3 TP 6.2* 7.3 -- 6.7 ALB 3.2* 3.6 -- 3.4* Recent Labs 06/08/15 2345 06/09/15 2330 06/10/15 2310 06/11/15 2330 06/12/15 1113 06/12/15 2317 WBC 0.65* 0.86* 1.02* 0.27* 0.23* 0.16* RBC 2.29* 2.40* 2.28* 2.83* 2.91* 2.50* HB 7.3* 7.6* 7.0* 8.7* 9.2* 7.9* HCT 20.3* 21.6* 20.5* 24.9* 25.0* 21.6* PLT 18* 12* 6* 24* 12* 8* NEUTROPERC 0.0* 0.0* 0.0* -- -- -- LYMPHPERC 88.0* 87.5* 93.0* -- -- -- MONOPERC 7.4 8.0 3.5 -- -- -- BASOPERC 0.0 0.0 0.0 -- -- -- EOSPERC 0.0* 0.0* 0.0* -- -- -- Meds: Reviewed on rounds, see current MAR for medication list SUMMARY OF PATIENT'S HOSPITALIZATION History of Present Illness: Khurram Kelly is 24 yo M with pmhx of pericarditis and new diagnosis of acute leukemia admitted for induction and management. Had been in usual state of [facility] 03/13/15 (the night of his wedding) at which time he noted bilateral ankle pain and swellin g. This persisted and worsened intermittently, notably when hunting on 03/19/15. Then after w ork, couldn't walk well 2/2 pain and inevitably couldn't bear weight on his feet. Presented to the ED and was diagnosed with cellulitis of the RLE, given antibiotics. During evaluation patient also noted to have pancytopenia with subsequent white blood cell differential ident ifying a predominance of early appearing monocytes. On 04/18/15 began to have pleuritic anterior chest pains, low-grade fevers occasionally up to 101. Also had onset of swelling and erythema over his left ankle, seen in the [facility]'s emergency room on 04/19/15. CT angiogram negative for blood clot. CBC demonstrated whi te count 15,300 with 59% monocytes, 3% immature monocytes, hemoglobin 11.8, platelets 146,00 0. He was apparently treated with antibiotics, also colchicine and anti-inflammatory agents - for possible dx of pericarditis - with complete resolution of his symptoms. After he finished the antibiotics and other medicines, the symptoms came back, repeat trip to the emergency room on 04/26/15. Repeat CT angiogram was again negative for pulmonary embo carmen or other abnormality. CBC showed white count 14,300 with 48% monocytes, 4% immature mono cytes, hemoglobin 12.8, platelets 180,000. He was again treated with the anti-inflammatory r maye colchicine, no antibiotics, again with complete resolution of symptoms. Was referred to Oncology and at that time had pleuritic anterior chest pain, low-grade feve rs. CBC demonstrated white count 17,600 with 66% monocytes, hemoglobin 11.8, platelets 115,0 00, did have 3.5% basophils. Review of his peripheral smear by pathology revealed many immat ure monocytes but no overt blasts. 05/19/15 had bone marrow bx confirming AML (see below) as well as flow cytometry. 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 -Results: 86% of blast equivalents, comprised of myeloblasts, monoblasts and promonocytes. Concurrent flow cytometry detected 23% myeloid blasts and 60% immature monocytic cells suppo rting this diagnosis. -Cytogenetics: Normal male karyotype -GeneTrails from OSH: triple negative for CEBPA , NPM1, FLT3 -Peripheral blood flow 05/27/15: Acute Myelomonocytic Leukemia (47% blasts and 30% monocyte s) -Cytogenetics: normal male karyotype -GeneTrails: PENDING -Day 14 BM Bx 06/09/15: Residual AML with 50-60% marrow cellularity and approximately 50% bl asts -Plan to send telomere length and chromosomal breakage when he recovers Treatment: -Chemotherapy regimen: standard induction with 3+7 started 05/27/15 -Idarubicin 12 mg/m2 daily x 3 days -Cytarabine 100 mg/m2 CI IV daily x 7 days. -Re-induction chemotherapy regimen: HAM started 06/11/15 -Cytarabine 3000 mg/m2 over 3 hours q 12 hr x 6 doses total, day 1-3 -Pred Forte Eye drops (1%) 2 drops to each eye q 6 hours from day 1 through day 6. First d ose of Pred eye drops to be 1/2 hr before first Cytarabine dose on day 1. -Mitoxantrone 10mg/m2/day over 30 minutes IV on day 4-6 -Chemo Day: 3 (HAM) / 18 (3+7) Patient is a candidate for transplant based on Dx and prognostic feature PENDING. Reques t insurance approval for typing. HLA typing sent 05/27/15. He has two brothers for potentia l donors. #Pancytopenia: secondary to acute leukemia. Folate, B12 normal -supportive care #Supportive Care: Growth factor: Not indicated with this chemotherapy regimen. Labs: Continue to check CBC with diff daily Transfusion parameters: -Transfuse PRBCs for HCT <21% -Transfuse PPH for platelet count <10,000 or sooner PRN s/s bleeding. HEENT: #Left acute parotitis: largely resolved as of 06/12. pain started ~06/02 and developed acute swelling 06/07 overnight. -CT max/facial with contrast 06/07 - Enlarged and heterogeneously enhancing left parotid g land with adjacent subcutaneous soft tissue edema and reactive lymphadenopathy. No abscess. -ID consulted and following: started zosyn 06/07, added vancomycin 06/09-06/12 for additiona l staph coverage. -ENT consulted and following peripherally: recommend abx as recommended per ID and support mickey measures (warm compresses, sialogogues, pain control, hydration) -was on Morphine [employer] JUDGE (06/07-06/11), now stopped with improvement in swelling and pain. Now with PRN narcotics available. Cardiovascular: Prechemotherapy Echo results on 05/18: EF 60-65 %. Left ventricular diastol ic function is normal. #Poss Hx of Pericarditis: presented to OSH on several visits to ED with CP. Echo done at [facility] x 2 both normal, no noted pericarditis or effusions. He received a course of colchicine an d is now asymptomatic. Pulmonary: #Current Smoker: Smoking cessation counseling offered -Nicotine gum PRN -Consider Nicotine patch is symptoms not controlled GI: #CINV: was on scop patch, no stopped as did not help -scheduled compazine, getting max dose zofran with chemo. /Renal: No acute issues Neurology: #Insomnia -Trazodone 25 mg at bedtime Dermatology: #Leg lesions: increasingly indurated and tender scattered lesions (3-4 on each leg). -Derm consulted 06/09: biopsies for H+E and cultures done 06/09: so far negatiave -Wound care instructions for biopsy sites on the right calf: -change bandage daily: clean site, reapply vaseline and then cover with a bandage. -sutures should be removed on 06/23/2015. Reproductive: #Sperm banking: completed 05/27/15 prior to chemotherapy Infectious Disease: #Screening Tests: Heb B/C - negative, HIV- negative #Parotitis: see HEENT section above. ID following. -Zosyn (06/07- ) -Vanco (06/08-06/12 ) stopped with negative cultures and resolved parotitis. #Prophylaxis: Bacterial: Levaquin -For first neutropenic fever, preciado cx, CXR, d/c Levofloxacin and begin Cefepime for empiric broadspectrum coverage. Fungal: Posaconazole, level 06/08 adequate at 1.1 - Posa now on HOLD with HAM chemotherapy, scheduled to restart on 06/17 Viral: Acyclovir PCP: Not indicated Fluid/Nutrition/Lytes: #Nutrition: Regular diet, No Kezia's yogurt or Kefir #Fluid: 1L NS PRN for PO intake <2L/day by 2200 #Lytes: Continue to check chemistries daily. Replace per supportive care protocol. Disposition: Anticipate 3-4 admission for induction chemotherapy. JULIANA Moya-C [facility] [address] [place] [address] Mailcode: [id number] [facility] [id number] Debby Gxaiola MD - 06/13/2015 10:31 AM PSTHematologic Malignancies/Bone Marrow Transplant Inpatient Attending Progress Note: Hospital course summary: Acute Myelomonocytic Leukemia, normal cytogenetics, [facility] genetrails PENDING. S/p 3+7 induct ion. Day 14 bmbx with residual AML (50-60% cellularity with 50% blasts), inititiated HAM re- induction, D3. Left sided parotitis: at worst on 06/07, now basically resolved. Only slightly tender to pa lpation. -Stopped vanco 06/12/2015. Continue Zosyn for now. Move to levofloxacin 06/14/2015/ -Leg lesions: Improving. Derm consulted 06/09: biopsies for H+E and cultures done 06/09: so f prudencio negatiave. Wound care instructions for biopsy sites on the right calf: -change bandage daily: clean site, reapply vaseline and then cover with a bandage. -sutures should be removed on 06/23/2015. I rounded today, 06/13/2015, in conjunction with the Advanced Practice Provider. I saw the patient, reviewed the history and relevant studies and developed an assessment an d plan. Subjective/Objective: Patient with nausea and vomiting. Still with some diarrhea, though im proved. Family visiting. Gen-looks well HEENT-small bleb along right buccal mucosa Lungs-clear to auscultation, good air movement Please see the Advanced Practice Provider documentation from today for the details regardin g the assessment and plan. Principal Problem: Acute myeloid leukemia (AML), M4 (HCC) Active Problems: Immunocompromised state (HCC) Electrolyte abnormality Chemotherapy induced nausea and vomiting Pancytopenia due to chemotherapy (HCC) Loose stools Parotiditis Rhinitis Multiple skin nodules Prophylactic antibiotic -will add round the clock zofran to help with nausea and vomiting. Likely will help with lo ose stools too. -will move from zosyn to levo tomorrow. Lolis Merritt MD pager: [phone] Lainey Silva MD - 06/13/2015 10:07 AM PST TRANSPLANT INFECTIOUS DISEASES FOLLOW UP VISIT NOTE I saw & examined Mr. Kelly. Chart reviewed & events noted. 06/09 BM biopsy with residual leukemia. Re-induction HAM begun 06/11. Remains neutropenic. No intercurrent fevers. Team stopped vancomycin yesterday - last dose at 12:57 PM on 06/12. Remains on zosyn. Patient reports feeling well. Left jaw not painful. Still using sialogogues. Some loose stools, using prn imodium with good response. No cough or abdominal pain. No other/new complaints. Current Medications: Current facility-administered medications: acyclovir (ZOVIRAX) tablet 800 mg, 800 mg, oral, DAILY, Latonya Priyanka, RONALD, 800 mg at 06/12/15 1103 alteplase (CATHFLO ACTIVASE) injection 2 mg, 2 mg, Intracatheter, PRN, JULIANA Cosme , 2 mg at 06/11/152012 chlorhexidine (PERIDEX) mouthwash 15 mL, 15 mL, oral, Q6H, Abimael Campo MD, 15 mL at 1 08/14/14 0630 cyclobenzaprine (FLEXERIL) tablet 10 mg, 10 mg, oral, Q8H PRN, Yung Zhao MD, 10 mg a t 06/08/15 0645 cytarabine (CYTOSAR) 6,400 mg in NaCl 0.9 % IV, 6,400 mg, intravenous, Q12H, Yung wild MD, Stopped at 06/13/15 0604 dexamethasone (DECADRON) tablet 20 mg, 20 mg, oral, Q24H, Yung Zhao MD, 20 mg at 11/20 1409 [START ON 06/14/2015] dexamethasone (DECADRON) tablet 8 mg, 8 mg, oral, Q24H, Yung wild MD diphenhydrAMINE (BENADRYL) capsule 25 mg, 25 mg, oral, Q4H PRN, Yari Garcia MD diphenhydrAMINE (BENADRYL) injection 25 mg, 25 mg, intravenous, Q4H PRN, Yari Garcia MD [id number] (SPECIAL MOUTHWASH) suspension (compound) 5-10 mL, 5-10 mL , oral, QID PRN, Kan Best MD, 10 mL at 06/06/15 1728 haloperidol (HALDOL) tablet 0.5-2 mg, 0.5-2 mg, oral, Q4H PRN, Yung Zhao MD haloperidol lactate (HALDOL) injection 0.5-2 mg, 0.5-2 mg, intravenous, Q4H PRN, Yung wilkins MD loperamide (IMODIUM) capsule 2 mg, 2 mg, oral, QID PRN, Lolis Merritt MD, 2 mg at 12/ 05/15 2039 LORazepam (ATIVAN) tablet 0.5 mg, 0.5 mg, oral, Q24H PRN, Yung Zhao MD [START ON 06/14/2015] LORazepam (ATIVAN) tablet 0.5 mg, 0.5 mg, oral, Q24H PRN, Yung anthony MD LORazepam (ATIVAN) tablet 0.5 mg, 0.5 mg, oral, Q6H PRN, Abimael Campo MD, 0.5 mg at 1845 magnesium citrate liquid 296 mL, 296 mL, oral, DAILY PRN, JULIANA Moya 296 mL at 06/08/15 1906 magnesium sulfate in water IV (RTU) 4 g, 4 g, intravenous, PRN, Blair Deng MD magnesium sulfate IV 8 g, 8 g, intravenous, PRN, Blair Deng MD [START ON 06/14/2015] mitoXANtrone (NOVANTRONE) 22 mg in dextrose 5 % IV, 22 mg, intravenous , Q24H, Yung Zhao MD morphine injection 1-4 mg, 1-4 mg, intravenous, Q4H PRN, Em Saunders PA-C NaCl 0.9 % solution, 150 mL/hr, intravenous, CONTINUOUS, Yung Zhao MD, Last Rate: 15 0 mL/hr at 06/13/15 0300, 150 mL/hr at 06/13/15 0300 NaCl 0.9 % solution, 1,000 mL, intravenous, PRN, Em Saunders PA-C nalOXone (NARCAN) injection, , intravenous, PRN, Em Saunders PA-C nicotine polacrilex (NICORETTE) gum 2 mg, 2 mg, oral, PRN, Robyn Contreras NP [START ON 06/14/2015] ondansetron (ZOFRAN) tablet 16 mg, 16 mg, oral, Q24H, Yung Zhao MD ondansetron (ZOFRAN) tablet 24 mg, 24 mg, oral, Q24H, Yung Zhao MD, 24 mg at 5 1409 [START ON 06/17/2015] ondansetron (ZOFRAN) tablet 8 mg, 8 mg, oral, BID, David Wright oxyCODONE (immediate release) (ROXICODONE) tablet 5-10 mg, 5-10 mg, oral, Q4H PRN, Em de leon PA-C, 10 mg at 06/11/15 1747 piperacillin-tazobactam (ZOSYN) IV (minibag+) 4.5 g, 4.5 g, intravenous, Q6H, JULIANA He 4.5 g at 06/13/15 0500 polyethylene glycol (MIRALAX) powder 17 g, 17 g, oral, DAILY PRN, Em Saunders PA-C [COMPLETED] posaconazole DR (NOXAFIL) tablet 300 mg, 300 mg, oral, BID, 300 mg at 05/31/158 FOLLOWED BY [START ON 06/17/2015] posaconazole DR (NOXAFIL) tablet 300 mg, 300 mg, oral, DAILY, Em Saunders PA-C potassium chloride IV (central line) 40 mEq, 40 mEq, intravenous, PRN AND potassium chl oride IV (central line) 60 mEq, 60 mEq, intravenous, PRN, Blair Deng MD potassium chloride SR (K-DUR) tablet 40 mEq, 40 mEq, oral, PRN, Blair Deng MD, 40 mE q at 06/12/15 1507 potassium phosphate IV 30 mmol, 30 mmol, intravenous, PRN AND potassium phosphate IV 40 mmol, 40 mmol, intravenous, PRN, Blair Deng MD prednisoLONE acetate (PRED FORTE) 1 % ophthalmic drops, suspension 2 drop, 2 drop, Both Eye s, Q6H, Yung Zhao MD, 2 drop at 06/13/15 0430 prochlorperazine (COMPAZINE) injection 5-10 mg, 5-10 mg, intravenous, Q4H PRN, Yung anthony MD prochlorperazine (COMPAZINE) tablet 5-10 mg, 5-10 mg, oral, Q6H PRN, Lamin Funes MD,PhD senna-docusate (SENOKOT S) 8.6-50 mg 1-2 tablet, 1-2 tablet, oral, BID PRN, Em Saunders PA-C sodium phosphate IV 30 mmol, 30 mmol, intravenous, PRN, Blair Deng MD, 30 mmol at 0628 sodium phosphate IV 40 mmol, 40 mmol, intravenous, PRN, Blair Deng MD traZODone (DESYREL) dose 25 mg, 25 mg, oral, HS, Em Saunders PA-C, 25 mg at 06/12/15 20 39 Allergies: Review of patient's allergies indicates no known allergies. Physical Exam Last Vitals: BP 123/56 | Pulse 53 | Temp 36.8 C (98.2 F) | RR 16 | Ht 1.9 m (6' 2.8") | Wt 81.666 kg (180 lb 0.6 oz) | SpO2 100% | BMI 22.62 kg/(m^2) 24 Hour Vital Min/Max: Systolic (24hrs), Av mmHg, Min:119 mmHg, Max:134 mmHg Diastolic (24hrs), Av mmHg, Min:56 mmHg, Max:67 mmHg Pulse Min: 53 Max: 76 Temp Min: 36.7 C (98.1 F) Max: 36.9 C (98.4 F) Resp Min: 16 Max: 18 SpO2 Min: 98 % Max: 100 % Gen: NAD, comfortable OP: clear mucus membranes, no lesions Left angle of jaw normal & nontender - face now symmetric Lungs: clear bilaterally Abdomen: +BS, soft, nontender Skin: diffuse lower extremity petechiae, no new/concerning findings Ext: no edema Line Site: E PICC site [place] Diagnostic Tests: Lab Results Component Value Date WBC 0.16 06/12/2015 HB 7.9 06/12/2015 HCT 21.6 06/12/2015 PLT 8 06/12/2015 MCV 86.4 06/12/2015 RDW 39.6 06/12/2015 Lab Results Component Value Date NA 142 06/12/2015 K 4.1 06/12/2015 CL 113* 06/12/2015 BICARB 24 06/12/2015 BUN 14 06/12/2015 CR 0.72 06/12/2015 GLU 172* 06/12/2015 CA 8.5* 06/12/2015 Lab Results Component Value Date TBILI 0.3 06/12/2015 AP 80 06/12/2015 TP 6.7 06/12/2015 ALB 3.4* 06/12/2015 AST 39 06/12/2015 ALT 68* 06/12/201506/08 posaconazole level 1.1 mcg/ml CULTURES: CULTURE RESULT (no units) Date Value 06/07/2015 Final Report:No Bacteria or Yeast isolated at 5 days. OTHER MICRO: 06/09 skin biopsy - bacterial, fungal & AFB cultures no growth to date Recent radiographs: 06/07/15 EXAM: CT face with contrast COMPARISON: CT sinus, 05/28/15 TECHNIQUE: CT of the face with Omnipaque intravenous contrast. FINDINGS: Face: No fractures Orbits: Unremarkable Soft tissues: There is enlargement and heterogeneous enhancement of the left parotid gland. Within the adjacent soft tissues, there is subcutaneous fat stranding and skin thickening, extending from soft tissues overlying the parotid gland to the angle of the mandible. Several adjacent level II lymph nodes are prominent, measuring up to 10 mm in short axis, likely reactive. No inflammatory fluid collection is identified within the parotid gland or within the adjacent soft tissues. No adjacent osseous destruction. No parotid duct calculus is identified. Paranasal sinuses: The circumferential mucosal thickening in the inferior right maxillary sinus. Minimal mucosal thickening in the left sphenoid sinus. Mandible: Unremarkable No abnormal enhancement Brain: Visualized portions are unremarkable IMPRESSION: Enlarged and heterogeneously enhancing left parotid gland with adjacent subcutaneous soft tissue edema and reactive lymphadenopathy, which may represent parotiditis. Assessment: 24 year old man with AML, s/p induction chemotherapy & most recently HAM re-ind uction on 06/11. Course complicated by parotitis, but no fevers to date. Parotitis resolved . While bacteria can play a role, parotitis is largely a consequence of issues with drainag e, which has now been achieved with resolution of process. He has not had any fevers to magaly e or documented infections. Risk/benefit favors change back to prophylactic antibiotic, spa ring protracted use of empiric broad-spectrum parenteral antibiotics, in the face of what is anticipated prolonged neutropenia after re-induction chemotherapy. Recommendations: - suggest change back to levofloxacin prophylaxis tomorrow (06/14), at which point he will h ave received 1 week of zosyn (and 5 days of vancomycin) - encouraged patient to maintain good hydration, to decrease risk for recurrent parotitis PROPHYLAXIS: On posaconazole - level adequate on 06/08, 1.1 mcg/ml. On acyclovir prophylaxi s. Above d/w primary team/JULIANA Tracey. Will sign off. Please call if any additional ID questions/concerns. Laieny Arenas MD [facility] [id number] [facility] Mailcode: [id number] [place] [address] yung, JULIANA Bird - 06/12/2015 4:15 PM PSTFormatting of this note might be different from the origin al. Daily NPP Note - Chemotherapy [facility] Attending: Lolis Merritt MD PCP: Pending Pcp ADDITION Date of Admission: 05/26/2015 Hematologic Malignancy: AML Reason for admission: Work-up and Induction Chemotherapy 24 Hour Events/Current Daily Plan: -Acute Myelomonocytic Leukemia, normal cytogenetics, [facility] genetrails PENDING. S/p 3+7 induc tion. Day 14 bmbx with residual AML (50-60% cellularity with 50% blasts), now day 2 HAM re-i nduction. -Pancytopenic: as anticipated with recent chemo. Standard transfusion parameters. None nee ded today. -Lytes: Standard electrolyte repletion parameters. No replacements required today. -Left sided parotitis: at worst on 06/07, now improved, almost resolved. 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 Stop vanco today. Continue Zosyn for now. -Leg lesions: Improving. Derm consulted 06/09: biopsies for H+E and cultures done 06/09: so f ar negatiave. Wound care instructions for biopsy sites on the right calf: -change bandage daily: clean site, reapply vaseline and then cover with a bandage. -sutures should be removed on 06/23/2015. Subjective: Feels good today, no complaints. Very slight swelling still on left jaw but la rgely resolved. Objective: Last Vitals: BP 119/58 | Pulse 76 | Temp 36.9 C (98.4 F) | RR 16 | Ht 1.9 m (6' 2.8") | Wt 84.868 kg (187 lb 1.6 oz) | SpO2 100% | BMI 23.51 kg/(m^2) 24 Hour Vital Min/Max: Systolic (24hrs), Av mmHg, Min:117 mmHg, Max:140 mmHg Diastolic (24hrs), Av mmHg, Min:58 mmHg, Max:67 mmHg Pulse Min: 53 Max: 76 Temp Min: 36.8 C (98.2 F) Max: 37 C (98.6 F) Resp Min: 16 Max: 20 SpO2 Min: 98 % Max: 100 % Intake/Output Summary (Last 24 hours) at 06/12/15 1615 Last data filed at 06/12/15 1511 Gross per 24 hour Intake 6462 ml Output 6083 ml Net 379 ml Physical Exam: General: This is a male in no acute distress. Sitting up in bed. HEENT: PERRL. Sclerae anicteric. Mucosa pink and moist without erythema. Very mild tender ness over left mandible by ear. Skin: Improving scattered indurated erythematous and mildly tender lesions on bilateral l ower legs. Chest: Lungs clear to auscultation bilat. CV: RRR, no murmurs. Abdomen: S/NT/ND with NABS. No HSM appreciated. Extremities: Pulses strong and equal bilaterally. No c/c/e. NeuroPsych: Alert and oriented x 3. Grossly nonfocal exam. CVC: PICC line dressing dry and intact Laboratory Results: Recent Labs 06/09/15232906/10/15230906/11/15232906/12/15 1113 NA 139 139 139 140 K 4.3 4.1 4.4 3.4 CL 109* 108 111* 109* BICARB 25 25 22 22 BUN 9 7 12 11 CR 0.91 0.87 0.77 0.80 GLU 101* 92 148* 133* CA 8.2* 8.0* 8.8 9.1 AST 20 16 27 -- ALT 30 29 41 -- AP 71 70 87 -- TBILI 0.5 0.4 0.4 -- TP 6.5 6.2* 7.3 -- ALB 3.2* 3.2* 3.6 -- Recent Labs 06/08/15 2345 06/09/15 23306/10/15 23106/11/15 2330 06/12/15 1113 WBC 0.65* 0.86* 1.02* 0.27* 0.23* RBC 2.29* 2.40* 2.28* 2.83* 2.91* HB 7.3* 7.6* 7.0* 8.7* 9.2* HCT 20.3* 21.6* 20.5* 24.9* 25.0* PLT 18* 12* 6* 24* 12* NEUTROPERC 0.0* 0.0* 0.0* -- -- LYMPHPERC 88.0* 87.5* 93.0* -- -- MONOPERC 7.4 8.0 3.5 -- -- BASOPERC 0.0 0.0 0.0 -- -- EOSPERC 0.0* 0.0* 0.0* -- -- Meds: Reviewed on rounds, see current MAR for medication list SUMMARY OF PATIENT'S HOSPITALIZATION History of Present Illness: Khurram Kelly is 24 yo M with pmhx of pericarditis and new diagnosis of acute leukemia admitted for induction and management. Had been in usual state of [facility] 03/13/15 (the night of his wedding) at which time he noted bilateral ankle pain and swellin g. This persisted and worsened intermittently, notably when hunting on 03/19/15. Then after w ork, couldn't walk well 2/2 pain and inevitably couldn't bear weight on his feet. Presented to the ED and was diagnosed with cellulitis of the RLE, given antibiotics. During evaluation patient also noted to have pancytopenia with subsequent white blood cell differential ident ifying a predominance of early appearing monocytes. On 04/18/15 began to have pleuritic anterior chest pains, low-grade fevers occasionally up to 101. Also had onset of swelling and erythema over his left ankle, seen in the [facility]'s emergency room on 04/19/15. CT angiogram negative for blood clot. CBC demonstrated whi te count 15,300 with 59% monocytes, 3% immature monocytes, hemoglobin 11.8, platelets 146,00 0. He was apparently treated with antibiotics, also colchicine and anti-inflammatory agents - for possible dx of pericarditis - with complete resolution of his symptoms. After he finished the antibiotics and other medicines, the symptoms came back, repeat trip to the emergency room on 04/26/15. Repeat CT angiogram was again negative for pulmonary embo carmen or other abnormality. CBC showed white count 14,300 with 48% monocytes, 4% immature mono cytes, hemoglobin 12.8, platelets 180,000. He was again treated with the anti-inflammatory r maye colchicine, no antibiotics, again with complete resolution of symptoms. Was referred to Oncology and at that time had pleuritic anterior chest pain, low-grade feve rs. CBC demonstrated white count 17,600 with 66% monocytes, hemoglobin 11.8, platelets 115,0 00, did have 3.5% basophils. Review of his peripheral smear by pathology revealed many immat ure monocytes but no overt blasts. 05/19/15 had bone marrow bx confirming AML (see below) as well as flow cytometry. 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 -Results: 86% of blast equivalents, comprised of myeloblasts, monoblasts and promonocytes. Concurrent flow cytometry detected 23% myeloid blasts and 60% immature monocytic cells suppo rting this diagnosis. -Cytogenetics: Normal male karyotype -GeneTrails from OSH: triple negative for CEBPA , NPM1, FLT3 -Peripheral blood flow 05/27/15: Acute Myelomonocytic Leukemia (47% blasts and 30% monocyte s) -Cytogenetics: normal male karyotype -GeneTrails: PENDING -Day 14 BM Bx 06/09/15: Residual AML with 50-60% marrow cellularity and approximately 50% bl asts -Plan to send telomere length and chromosomal breakage when he recovers Treatment: -Chemotherapy regimen: standard induction with 3+7 started 05/27/15 -Idarubicin 12 mg/m2 daily x 3 days -Cytarabine 100 mg/m2 CI IV daily x 7 days. -Re-induction chemotherapy regimen: HAM started 06/11/15 -Cytarabine 3000 mg/m2 over 3 hours q 12 hr x 6 doses total, day 1-3 -Pred Forte Eye drops (1%) 2 drops to each eye q 6 hours from day 1 through day 6. First d ose of Pred eye drops to be 1/2 hr before first Cytarabine dose on day 1. -Mitoxantrone 10mg/m2/day over 30 minutes IV on day 4-6 -Chemo Day: () / (3+7) Patient is a candidate for transplant based on Dx and prognostic feature PENDING. Reques t insurance approval for typing. HLA typing sent 05/27/15. He has two brothers for potentia l donors. #Pancytopenia: secondary to acute leukemia. Folate, B12 normal -supportive care #Supportive Care: Growth factor: Not indicated with this chemotherapy regimen. Labs: Continue to check CBC with diff daily Transfusion parameters: -Transfuse PRBCs for HCT <21% -Transfuse PPH for platelet count <10,000 or sooner PRN s/s bleeding. HEENT: #Left acute parotitis: largely resolved as of 06/12. pain started ~06/02 and developed acute swelling 06/07 overnight. -CT max/facial with contrast 06/07 - Enlarged and heterogeneously enhancing left parotid g land with adjacent subcutaneous soft tissue edema and reactive lymphadenopathy. No abscess. -ID consulted and following: started zosyn 06/07, added vancomycin 06/09-06/12 for additiona l staph coverage. -ENT consulted and following peripherally: recommend abx as recommended per ID and support mickey measures (warm compresses, sialogogues, pain control, hydration) -was on Morphine [employer] (06/07-06/11), now stopped with improvement in swelling and pain. Now with PRN narcotics available. Cardiovascular: Prechemotherapy Echo results on 05/18: EF 60-65 %. Left ventricular diastol ic function is normal. #Poss Hx of Pericarditis: presented to OSH on several visits to ED with CP. Echo done at [facility] x 2 both normal, no noted pericarditis or effusions. He received a course of colchicine an d is now asymptomatic. Pulmonary: #Current Smoker: Smoking cessation counseling offered -Nicotine gum PRN -Consider Nicotine patch is symptoms not controlled GI: #CINV: was on scop patch, no stopped as did not help -Antiemetics PRN /Renal: No acute issues Neurology: #Insomnia -Trazodone 25 mg at bedtime Dermatology: #Leg lesions: increasingly indurated and tender scattered lesions (3-4 on each leg). -Derm consulted 06/09: biopsies for H+E and cultures done 06/09: so far negatiave -Wound care instructions for biopsy sites on the right calf: -change bandage daily: clean site, reapply vaseline and then cover with a bandage. -sutures should be removed on 06/23/2015. Reproductive: #Sperm banking: completed 05/27/15 prior to chemotherapy Infectious Disease: #Screening Tests: Heb B/C - negative, HIV- negative #Parotitis: see HEENT section above. ID following. -Zosyn (06/07- ) -Vanco (06/08- ) #Prophylaxis: Bacterial: Levaquin -For first neutropenic fever, preciado cx, CXR, d/c Levofloxacin and begin Cefepime for empiric broadspectrum coverage. Fungal: Posaconazole, level 06/08 adequate at 1.1 - Posa now on HOLD with HAM chemotherapy, scheduled to restart on 06/17 Viral: Acyclovir PCP: Not indicated Fluid/Nutrition/Lytes: #Nutrition: Regular diet, No Kezia's yogurt or Kefir #Fluid: 1L NS PRN for PO intake <2L/day by 2200 #Lytes: Continue to check chemistries daily. Replace per supportive care protocol. Disposition: Anticipate 3-4 admission for induction chemotherapy. [facility] [address] [place] [address] Mailcode: [id number] [facility] [phone] Debby Gaxiola MD - 06/12/2015 10:38 AM PSTHematologic Malignancies/Bone Marrow Transplant Inpatient Attending Progress Note: Hospital course summary: Acute Myelomonocytic Leukemia, normal cytogenetics, [facility] genetrails PENDING. S/p 3+7 induct ion. Day 14 bmbx with residual AML (50-60% cellularity with 50% blasts), inititiated HAM re- induction, D3. Left sided parotitis: at worst on 06/07, now basically resolved. Only slightly tender. -Stopped vanco 06/12/2015. Continue Zosyn for now. Perhaps move to levofloxacin. -Leg lesions: Improving. Derm consulted 06/09: biopsies for H+E and cultures done 06/09: so f ar negatiave. Wound care instructions for biopsy sites on the right calf: -change bandage daily: clean site, reapply vaseline and then cover with a bandage. -sutures should be removed on 06/23/2015. I rounded today, 06/12/2015, in conjunction with the Advanced Practice Provider. I saw the patient, reviewed the history and relevant studies and developed an assessment an d plan. Subjective/Objective: Patient with significant improvement in parotid swelling. Noting some loose stools. No nausea. Please see the Advanced Practice Provider documentation from today for the details regardin g the assessment and plan. Principal Problem: Acute myeloid leukemia (AML), M4 (HCC) Active Problems: Immunocompromised state (HCC) Electrolyte abnormality Chemotherapy induced nausea and vomiting Pancytopenia due to chemotherapy (HCC) Loose stools Parotiditis Rhinitis Multiple skin nodules Prophylactic antibiotic Lolis Merritt MD pager: [phone] Yung Rodas MD - 06/11/2015 5:52 PM PST BMT/Leukemia Service Attending Progress Note [facility] Khurram Kelly is a 24 y.o. 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 History was obtained, exam performed, laboratory studies reviewed, and plan developed in conjunction with Ms Saunders. I concur with the evaluation and I agree with the assessmen t and plans as documented in the accompanying note that can be found within the electronic r ecord. Subjective: ongoing oral pain- but better; Still on [employer] JUDGE - transitioning to po analgesia,but slowed b y biopsy site discomfort No fevers or rigors still. No discernible swelling LUE Minimal ongoing parotid swelling Bone marrow site with ache ROS: remainder is negative PFSH: significant for at bedside Exam: Last Vitals: BP 122/62 | Pulse 52 | Temp 36.5 C (97.7 F) | RR 16 | Ht 1.9 m (6' 2.8") | Wt 85.548 kg (188 lb 9.6 oz) | SpO2 100% | BMI 23.7 kg/(m^2) 24 hour Vitals min/max : Systolic (24hrs), Av mmHg, Min:110 mmHg, Max:141 mmHg Diastolic (24hrs), Av mmHg, Min:48 mmHg, Max:66 mmHg Intake/Output Summary (Last 24 hours) at 06/11/15 1754 Last data filed at 06/11/15 1700 Gross per 24 hour Intake 7559 ml Output 5255 ml Net 2304 ml Temp (24hrs), Av.8 C (98.2 F), Min:36.5 C (97.7 F), Max:37 C (98.6 F) General: improved. Full ROM of neck now. Still without alopecia Skin: no rash and no catheter exit site tenderness; no further tenderness in Left axilla Eyes: normal, PERRLA and EOM's intact Mouth: normal mucosa; decreased swelling of left face. No sinus tenderness now Neck: full ROM Lymph: No palpable peripheral adenopathy Chest: Clear to auscultation Heart: RRR, no murmur, S1/S2 normal Abdomen: Soft and nontender without masses or hepatosplenomegaly Extrem: no pretibial/pedal edema; has 5 total small erythema, subcut nodules- stable; no ex tension beyond boundaries Back- BM site looks without drainage. Sl tender to touch; ecchymosis present Neuro: alert, oriented x 3, cranial nerves intact, motor/sens non-focal Pain Scale (0-10): 3-4 (at bone marrow site) Lab/X-ray findings: CBC with diff last 72 hours (or 3 results) Recent Labs 06/08/15 2345 06/09/15 2330 06/10/15 2310 WBC 0.65* 0.86* 1.02* HB 7.3* 7.6* 7.0* HCT 20.3* 21.6* 20.5* PLT 18* 12* 6* NEUTROPERC 0.0* 0.0* 0.0* LYMPHPERC 88.0* 87.5* 93.0* MONOPERC 7.4 8.0 3.5 BASOPERC 0.0 0.0 0.0 EOSPERC 0.0* 0.0* 0.0* Liver Tests: Last 72 hours (or 3 results) Recent Labs 06/08/15 2345 06/09/15 2330 06/10/15 2310 AST 23 20 16 ALT 29 30 29 TBILI 0.9 0.5 0.4 AP 71 71 70 ALB 3.5 3.2* 3.2* TP 6.7 6.5 6.2* Chemistries: Last 72 Hours (or 3 results): Recent Labs 06/08/15234406/09/15232906/10/15 2310 NA 134* 139 139 K 4.2 4.3 4.1 CL 104 109* 108 BICARB 24 25 25 BUN 7 9 7 CR 0.87 0.91 0.87 GLU 107* 101* 92 CA 8.3* 8.2* 8.0* MG 2.1 2.4 2.2 PO4 3.1 2.9 2.8 Final Pathologic Diagnosis: Peripheral blood: - Pancytopenia with rare circulating blasts Bone marrow aspirate, biopsy and clot section: - Residual acute myeloid leukemia (50-60% marrow cellularity and approximately 50% blasts) - Immunophenotype: CD13, CD33, CD34, partial CD56, partial CD64 and CD117 positive Assessment/Plan: I certify that the history (as documented today) is reviewed, patient interviewed and pers onally examined by me. Heme: transfuse blood products prn critical cytopenias - platelets today neutropenic; s/ p induction chemotherapy with 3 + 7; Day 14 marrow performed on 06/09/15- Results- induction failure- Will reinduce with HAM---need to reinstitute antiemetics, IV hydration, steroid eye drops; also with need to follow renal function ID: afebrile, Continues on prophylactic anti-viral and antifungal agents.; neutropenic precautions Converted to IV zosyn/ vancomycin for treatment of oral cellulitis- Tx ID service in care management--> coverage of MRSA needed -minimum of one week course Sinus CT- no clear evidence of sinusitis GI: no emesis or diarrhea; Continue oral care FEN: adq oral intake of fluids and calories-- will need ivf with HAM Pain syndrome- may be able to return to oral pain meds Skin- inflammatory. Nodules; minimal path present Other: catheter assoc basilic superficial vein thrombosis- Treat with heat and elevation p rn Continue maximal supports. Donor search is activated. Pt has two brothers. Ideally, if they are sib matches, you go to tx in CR1 or PIF; I had 20 minute face to face with patient and , in addition to standard pt review. Smith s two brothers;they to review of medications and labs with Ms Saunders, as well as implicatio n of the marrow results. Also explained the "triple negative " stats. Also, risks and melissa efits of HAM therapy including ocular conjunctivitis, hepatitis, further immune suppression. He agrees and we will proceed. Yung Zhao MD [facility] [id number] [facility] Mailcode: [id number] [place] [address] Em Vinson PA- C - 06/11/2015 3:41 PM PST Daily NPP Note - Chemotherapy Admit [facility] Attending: Yung Zhao MD PCP: Pending Pcp ADDITION Date of Admission: 05/26/2015 Hematologic Malignancy: AML Reason for admission: Work-up and Induction Chemotherapy 24 Hour Events/Current Daily Plan: -Acute Myelomonocytic Leukemia, normal cytogenetics, [facility] genetrails PENDING. S/p 3+7 induc tion. Day 14 bmbx with residual AML (50-60% cellularity with 50% blasts), started HAM re-ind uction now day 1 today. -Pancytopenic: as anticipated with recent chemo. Standard transfusion parameters. Received 1 unit PRBC and 1 unit platelets today. -Lytes: Standard electrolyte repletion parameters. No replacements required today. -Left sided parotitis: at worst on 06/07, now with ongoing improvement. Now with mild swell ing and tenderness, off [employer] JUDGE as of 06/11. Continue Zosyn, Vanco IV for ~1 week, ID following a nd will advise on antibiotics. ENT now following only peripherally: recommend abx as recomme nded per ID and supportive measures (warm compresses, sialogogues, pain control, hydration) -CINV: Improved overall. Off scheduled antiemetics, now with PRN available. -Leg lesions: increasingly indurated and tender scattered lesions (3-4 on each leg). Derm c onsulted 06/09: biopsies for H+E and cultures done 06/09: so far negatiave. Wound care instruc tions for biopsy sites on the right calf: -keep bx site clean and dry for 24 hours -remove bandage after 24 hours and wash gently with soap and water -change bandage daily: clean site, reapply vaseline and then cover with a bandage. -sutures should be removed on 06/23/2015. Subjective: Swelling over left face/neck improving, less tender today and not requiring PC A as much. Ready to proceed with more chemotherapy today. Objective: Last Vitals: BP 122/62 | Pulse 52 | Temp 36.5 C (97.7 F) | RR 16 | Ht 1.9 m (6' 2.8") | Wt 85.548 kg (188 lb 9.6 oz) | SpO2 100% | BMI 23.7 kg/(m^2) 24 Hour Vital Min/Max: Systolic (24hrs), Av mmHg, Min:110 mmHg, Max:141 mmHg Diastolic (24hrs), Av mmHg, Min:48 mmHg, Max:66 mmHg Pulse Min: 52 Max: 67 Temp Min: 36.5 C (97.7 F) Max: 37 C (98.6 F) Resp Min: 14 Max: 16 SpO2 Min: 97 % Max: 100 % Intake/Output Summary (Last 24 hours) at 06/11/15 1541 Last data filed at 06/11/15 1523 Gross per 24 hour Intake 6479 ml Output 5155 ml Net 1324 ml Physical Exam: General: This is a male in no acute distress. Sitting up in bed. HEENT: PERRL. Sclerae anicteric. Mucosa pink and moist without erythema, ROM and with mil d edema over left face/neck most, still with mild tenderness - overall improving. Skin: Scattered indurated erythematous and mildly tender lesions on bilateral lower legs. Chest: Lungs clear to auscultation bilat. CV: RRR, no murmurs. Abdomen: S/NT/ND with NABS. No HSM appreciated. Extremities: Pulses strong and equal bilaterally. No c/c/e. NeuroPsych: Alert and oriented x 3. Grossly nonfocal exam. CVC: PICC line dressing dry and intact Laboratory Results: Recent Labs 06/08/15 2345 06/09/15 2330 06/10/15 2310 NA 134* 139 139 K 4.2 4.3 4.1 CL 104 109* 108 BICARB 24 25 25 BUN 7 9 7 CR 0.87 0.91 0.87 GLU 107* 101* 92 CA 8.3* 8.2* 8.0* AST 23 20 16 ALT 29 30 29 AP 71 71 70 TBILI 0.9 0.5 0.4 TP 6.7 6.5 6.2* ALB 3.5 3.2* 3.2* Recent Labs 06/08/15 2345 06/09/15 2330 06/10/15 2310 WBC 0.65* 0.86* 1.02* RBC 2.29* 2.40* 2.28* HB 7.3* 7.6* 7.0* HCT 20.3* 21.6* 20.5* PLT 18* 12* 6* NEUTROPERC 0.0* 0.0* 0.0* LYMPHPERC 88.0* 87.5* 93.0* MONOPERC 7.4 8.0 3.5 BASOPERC 0.0 0.0 0.0 EOSPERC 0.0* 0.0* 0.0* Meds: Reviewed on rounds, see current MAR for medication list SUMMARY OF PATIENT'S HOSPITALIZATION History of Present Illness: Khurram Kelly is 24 yo M with pmhx of pericarditis and new diagnosis of acute leukemia admitted for induction and management. Had been in usual state of [facility] 03/13/15 (the night of his wedding) at which time he noted bilateral ankle pain and swellin g. This persisted and worsened intermittently, notably when hunting on 03/19/15. Then after w ork, couldn't walk well 2/2 pain and inevitably couldn't bear weight on his feet. Presented to the ED and was diagnosed with cellulitis of the RLE, given antibiotics. During evaluation patient also noted to have pancytopenia with subsequent white blood cell differential ident ifying a predominance of early appearing monocytes. On 04/18/15 began to have pleuritic anterior chest pains, low-grade fevers occasionally up to 101. Also had onset of swelling and erythema over his left ankle, seen in the [facility] emergency room on 04/19/15. CT angiogram negative for blood clot. CBC demonstrated whi te count 15,300 with 59% monocytes, 3% immature monocytes, hemoglobin 11.8, platelets 146,00 0. He was apparently treated with antibiotics, also colchicine and anti-inflammatory agents - for possible dx of pericarditis - with complete resolution of his symptoms. After he finished the antibiotics and other medicines, the symptoms came back, repeat trip to the emergency room on 04/26/15. Repeat CT angiogram was again negative for pulmonary embo carmen or other abnormality. CBC showed white count 14,300 with 48% monocytes, 4% immature mono cytes, hemoglobin 12.8, platelets 180,000. He was again treated with the anti-inflammatory r maye colchicine, no antibiotics, again with complete resolution of symptoms. Was referred to Oncology and at that time had pleuritic anterior chest pain, low-grade feve rs. CBC demonstrated white count 17,600 with 66% monocytes, hemoglobin 11.8, platelets 115,0 00, did have 3.5% basophils. Review of his peripheral smear by pathology revealed many immat ure monocytes but no overt blasts. 05/19/15 had bone marrow bx confirming AML (see below) as well as flow cytometry. Hospitalization History: Hematology: #AML Pertinent Diagnostics: -BM Bx done at OSH 05/19/15, slides reviewed by [facility] and c/w Acute Myelomonocytic Leukemia in a 90% cellular marrow. -Results: 86% of blast equivalents, comprised of myeloblasts, monoblasts and promonocytes. Concurrent flow cytometry detected 23% myeloid blasts and 60% immature monocytic cells suppo rting this diagnosis. -Cytogenetics: Normal male karyotype -GeneTrails: triple negative for CEBPA , NPM1, FLT3 -Peripheral blood flow 05/27/15: Acute Myelomonocytic Leukemia (47% blasts and 30% monocyte s) -Cytogenetics: normal male karyotype -GeneTrails: PENDING -Day 14 BM Bx 06/09/15: Residual AML with 50-60% marrow cellularity and approximately 50% bl asts -Plan to send telomere length and chromosomal breakage when he recovers Treatment: -Chemotherapy regimen: standard induction with 3+7 started 05/27/15 -Idarubicin 12 mg/m2 daily x 3 days -Cytarabine 100 mg/m2 CI IV daily x 7 days. -Re-induction chemotherapy regimen: [facility] started 06/11/15 -Cytarabine 3000 mg/m2 over 3 hours q 12 hr x 6 doses total, day 1-3 -Pred Forte Eye drops (1%) 2 drops to each eye q 6 hours from day 1 through day 6. First d ose of Pred eye drops to be 1/2 hr before first Cytarabine dose on day 1. -Mitoxantrone 10mg/m2/day over 30 minutes IV on day 4-6 -Chemo Day: 14 (3+7)/ ([facility]) Patient is a candidate for transplant based on Dx and prognostic feature PENDING. Reques t insurance approval for typing. HLA typing sent 05/27/15. He has two brothers for potentia l donors. #Pancytopenia: secondary to acute leukemia. Folate, B12 normal -supportive care #Supportive Care: Growth factor: Not indicated with this chemotherapy regimen. Labs: Continue to check CBC with diff daily Transfusion parameters: -Transfuse PRBCs for HCT <21% -Transfuse PPH for platelet count <10,000 or sooner PRN s/s bleeding. HEENT: #Left acute parotitis: pain started ~06/02 and developed acute swelling 06/07 overnight. Ed ematous, tender and limited ROM on presentation. Now with improvement and mild swelling. CT max/facial with contrast 06/07 - Enlarged and heterogeneously enhancing left parotid gland w ith adjacent subcutaneous soft tissue edema and reactive lymphadenopathy. No abscess. -ID consulted and following: started zosyn 06/07, added vancomycin 06/08 for additional sta ph coverage. -ENT consulted and following peripherally: recommend abx as recommended per ID and support mickey measures (warm compresses, sialogogues, pain control, hydration) -was on Morphine [employer] (06/07-06/11), now stopped with improvement in swelling and pain. Now with PRN narcotics available. Cardiovascular: Prechemotherapy Echo results on 05/18: EF 60-65 %. Left ventricular diastol ic function is normal. #Poss Hx of Pericarditis: presented to OSH on several visits to ED with CP. Echo done at [facility] x 2 both normal, no noted pericarditis or effusions. He received a course of colchicine an d is now asymptomatic. Pulmonary: #Current Smoker: Smoking cessation counseling offered -Nicotine gum PRN -Consider Nicotine patch is symptoms not controlled GI: #CINV: Improved on scheduled antiemetics -was on Zofran 8 mg PO BID, now PRN -was on Compazine 5-10 mg q6hrs, now PRN -was on scop patch, no stopped as did not help -Antiemetics PRN /Renal: No acute issues Neurology: #Insomnia -Trazodone 25 mg at bedtime Dermatology: #Leg lesions: increasingly indurated and tender scattered lesions (3-4 on each leg). -Derm consulted 06/09: biopsies for H+E and cultures done 06/09: so far negatiave -Wound care instructions for biopsy sites on the right calf: -keep bx site clean and dry for 24 hours -remove bandage after 24 hours and wash gently with soap and water -change bandage daily: clean site, reapply vaseline and then cover with a bandage. -sutures should be removed on 06/23/2015. Reproductive: #Sperm banking: completed 05/27/15 prior to chemotherapy Infectious Disease: #Screening Tests: Heb B/C - negative, HIV- negative #Parotitis: see HEENT section above. ID following. -Zosyn (06/07- ) -Vanco (06/08- ) #Prophylaxis: Bacterial: Levaquin -For first neutropenic fever, preciado cx, CXR, d/c Levofloxacin and begin Cefepime for empiric broadspectrum coverage. Fungal: Posaconazole, level 06/08 adequate at 1.1 - Posa now on HOLD with HAM chemotherapy, scheduled to restart on 06/17 Viral: Acyclovir PCP: Not indicated Fluid/Nutrition/Lytes: #Nutrition: Regular diet, No Kezia's yogurt or Kefir #Fluid: 1L NS PRN for PO intake <2L/day by 2200 #Lytes: Continue to check chemistries daily. Replace per supportive care protocol. Disposition: Anticipate 3-4 admission for induction chemotherapy. SIDNEY DiezSU [address]K [id number] [facility] Mailcode: [id number] [place] [address] Yung Rodas M D - 06/10/2015 11:20 AM PST BMT/Leukemia Service Attending Progress Note [facility] Khurram Kelly is a 24 y.o. 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 Sweet's syndrome Subjective: continued improvement of oral pain; Can move neck fully now. Still on [employer] JUDGE bu t willing to consider switch back to po analgesia No fevers or rigors still. Has lower extremity subcut erythema nodules- 5--> no further ex tension beyond borders. Over last 24 hrs No discernible swelling LUE Reports some parotid swelling with sucking hard sour candy Bone marrow site with ache ROS: remainder is negative PFSH: significant for at bedside Exam: Last Vitals: BP 125/63 | Pulse 80 | Temp 36.9 C (98.4 F) | RR 16 | Ht 1.9 m (6' 2.8") | Wt 84.823 kg (187 lb) | SpO2 100% | BMI 23.5 kg/(m^2) 24 hour Vitals min/max : Systolic (24hrs), Av mmHg, Min:105 mmHg, Max:133 mmHg Diastolic (24hrs), Av mmHg, Min:58 mmHg, Max:91 mmHg Intake/Output Summary (Last 24 hours) at 06/10/15 1121 Last data filed at 06/10/15 0946 Gross per 24 hour Intake 4153 ml Output 3680 ml Net 473 ml Temp (24hrs), Av.7 C (98.1 F), Min:36.4 C (97.5 F), Max:37 C (98.6 F) General: improved. Full ROM of neck now. Still without alopecia Skin: no rash and no catheter exit site tenderness; no further tenderness in Left axilla Eyes: normal, PERRLA and EOM's intact Mouth: normal mucosa; decreased swelling of left face. No percussion tenderness of maxill bettye or mandibular dentition on left side of jaw No sinus tenderness now Neck: full ROM Lymph: No palpable peripheral adenopathy Chest: Clear to auscultation Heart: RRR, no murmur, S1/S2 normal Abdomen: Soft and nontender without masses or hepatosplenomegaly Extrem: no pretibial/pedal edema; has 5 total small erythema, subcut nodules- stable; no ex tension beyond boundaries Back- BM site looks without drainage. Sl tender to touch Neuro: alert, oriented x 3, cranial nerves intact, motor/sens non-focal Pain Scale (0-10): 3-4 (at bone marrow site) Lab/X-ray findings: CBC with diff last 72 hours (or 3 results) Recent Labs 06/07/15232906/08/15234406/09/152329 WBC 0.64* 0.65* 0.86* HB 8.1* 7.3* 7.6* HCT 22.4* 20.3* 21.6* PLT 6* 18* 12* NEUTROPERC 0.6* 0.0* 0.0* LYMPHPERC 85.3* 88.0* 87.5* MONOPERC 4.9 7.4 8.0 BASOPERC 0.0 0.0 0.0 EOSPERC 0.0* 0.0* 0.0* Liver Tests: Last 72 hours (or 3 results) Recent Labs 06/07/15232906/08/15234406/09/152329 AST 27 23 20 ALT 26 29 30 TBILI 1.3* 0.9 0.5 AP 64 71 71 ALB 3.7 3.5 3.2* TP 7.1 6.7 6.5 Chemistries: Last 72 Hours (or 3 results): Recent Labs 06/07/15232906/08/15234406/09/152329 NA 131* 134* 139 K 4.3 4.2 4.3 CL 99 104 109* BICARB 26 24 25 BUN 10 7 9 CR 0.86 0.87 0.91 GLU 100* 107* 101* CA 8.3* 8.3* 8.2* MG 2.1 2.1 2.4 PO4 3.5 3.1 2.9 Assessment/Plan: I certify that the history (as documented today) is reviewed, patient interviewed and pers onally examined by me. Heme: transfuse blood products prn critical cytopenias neutropenic; s/ p induction chemotherapy with 3 + 7; Day 14 marrow performed on 06/09/15- awaiting results ID: afebrile, Continues on prophylactic anti-viral and antifungal agents.; neutropenic precautions Converted to IV zosyn/ vancomycin for treatment of oral cellulitis- Tx ID service in care management--> will follow their recommendation for treatment course-m inimum of one week course Sinus CT- no clear evidence of sinusitis GI: no emesis or diarrhea; Continue oral care FEN: adq oral intake of fluids and calories Pain syndrome- may be able to return to oral pain meds in 24 hrs Skin- ask Dermatology for consult- ? Infectious nodules vs inflammatory. Other: catheter assoc basilic superficial vein thrombosis- Treat with heat and elevation p rn Continue maximal supports. Donor search is activated. Yung Zhao MD [place] [id number] [facility] Mailcode: [address] [address] Kary Francis PA - 06/09/2015 6:40 PM PST . Daily NPP Note - Chemotherapy Admit [facility] Attending: Yung Zhao MD PCP: Pending Pcp ADDITION Date of Admission: 05/26/2015 Hematologic Malignancy: AML Reason for admission: Work-up and Induction Chemotherapy 24 Hour Events/Current Daily Plan: -Acute Myelomonocytic Leukemia, normal cytogenetics, genetrails PENDING: day 14 of 3+7 viki ction. Had day 14 bone marrow biopsy today- results pending. -Pancytopenic: as anticipated with recent chemo. Standard transfusion parameters. Received blood today. -Lytes: Standard electrolyte repletion parameters. No replacements required today. -Left sided parotitis: at worst on 06/07. Much improved today. -ID consulted and following: continue zosyn, vanco for approx 1 week course. -ENT now following only peripherally: recommend abx as recommended per ID and supportive m easures (warm compresses, sialogogues, pain control, hydration) -Morphine [employer] JUDGE as of 06/07 -CINV: Improved overall. Continue Zofran BID and antiemetics PRN (has failed trial of ervin zine ATC and scop patch) -Leg lesions: increasingly indurated and tender scattered lesions (3-4 on each leg). -Derm consulted today and biopsies for H+E and cultures done today 06/09. -Wound care instructions for biopsy sites on the right calf: -keep bx site clean and dry for 24 hours -remove bandage after 24 hours and wash gently with soap and water -change bandage daily: clean site, reapply vaseline and then cover with a bandage. -sutures should be removed on 06/23/2015. Subjective: left sided face swelling much improved, his is massaging the parotid gland a lot and he thinks that is helping. Leg lesions are little more firm today. Objective: Last Vitals: BP 133/77 | Pulse 73 | Temp 36.9 C (98.4 F) | RR 16 | Ht 1.9 m (6' 2.8") | Wt 84.369 kg (186 lb) | SpO2 100% | BMI 23.37 kg/(m^2) 24 Hour Vital Min/Max: Systolic (24hrs), Av mmHg, Min:96 mmHg, Max:134 mmHg Diastolic (24hrs), Av mmHg, Min:48 mmHg, Max:91 mmHg Pulse Min: 60 Max: 82 Temp Min: 36.3 C (97.3 F) Max: 37 C (98.6 F) Resp Min: 16 Max: 16 SpO2 Min: 98 % Max: 100 % Intake/Output Summary (Last 24 hours) at 06/09/15 1840 Last data filed at 06/09/15 1600 Gross per 24 hour Intake 5825 ml Output 3505 ml Net 2320 ml Physical Exam: General: This is a male in no acute distress. Sitting up in bed. HEENT: PERRL. Sclerae anicteric. Mucosa pink and moist without erythema, increased range of motion today but still somewhat limited. Edema left face/neck most indurated anterior to left ear and tender. Skin: Scattered indurated erythematous and mildly tender lesions on bilateral lower legs. Chest: Lungs clear to auscultation bilat. CV: RRR, no murmurs. Abdomen: S/NT/ND with NABS. No HSM appreciated. Extremities: Pulses strong and equal bilaterally. No c/c/e. NeuroPsych: Alert and oriented x 3. Grossly nonfocal exam. CVC: PICC line dressing dry and intact Laboratory Results: Recent Labs 06/06/15234906/07/15232906/08/15 2345 NA 135* 131* 134* K 4.3 4.3 4.2 CL 102 99 104 BICARB 26 26 24 BUN 9 10 7 CR 0.83 0.86 0.87 GLU 100* 100* 107* CA 8.1* 8.3* 8.3* AST 18 27 23 ALT 26 26 29 AP 54 64 71 TBILI 0.7 1.3* 0.9 TP 6.6 7.1 6.7 ALB 3.4* 3.7 3.5 Recent Labs 06/06/15234906/07/15232906/08/15 2345 WBC 0.56* 0.64* 0.65* RBC 2.26* 2.55* 2.29* HB 7.2* 8.1* 7.3* HCT 20.3* 22.4* 20.3* PLT 11* 6* 18* NEUTROPERC 0.8* 0.6* 0.0* LYMPHPERC 82.2* 85.3* 88.0* MONOPERC 12.4* 4.9 7.4 BASOPERC 0.0 0.0 0.0 EOSPERC 0.0* 0.0* 0.0* Meds: Reviewed on rounds, see current MAR for medication list SUMMARY OF PATIENT'S HOSPITALIZATION History of Present Illness: Khurram Kelly is 24 yo M with pmhx of pericarditis and new diagnosis of acute leukemia admitted for induction and management. Had been in usual state of [facility] 03/13/15 (the night of his wedding) at which time he noted bilateral ankle pain and swellin g. This persisted and worsened intermittently, notably when hunting on 03/19/15. Then after w ork, couldn't walk well 2/2 pain and inevitably couldn't bear weight on his feet. Presented to the ED and was diagnosed with cellulitis of the RLE, given antibiotics. During evaluation patient also noted to have pancytopenia with subsequent white blood cell differential ident ifying a predominance of early appearing monocytes. On 04/18/15 began to have pleuritic anterior chest pains, low-grade fevers occasionally up to 101. Also had onset of swelling and erythema over his left ankle, seen in the [facility] emergency room on 04/19/15. CT angiogram negative for blood clot. CBC demonstrated whi te count 15,300 with 59% monocytes, 3% immature monocytes, hemoglobin 11.8, platelets 146,00 0. He was apparently treated with antibiotics, also colchicine and anti-inflammatory agents - for possible dx of pericarditis - with complete resolution of his symptoms. After he finished the antibiotics and other medicines, the symptoms came back, repeat trip to the emergency room on 04/26/15. Repeat CT angiogram was again negative for pulmonary embo carmen or other abnormality. CBC showed white count 14,300 with 48% monocytes, 4% immature mono cytes, hemoglobin 12.8, platelets 180,000. He was again treated with the anti-inflammatory r maye colchicine, no antibiotics, again with complete resolution of symptoms. Was referred to Oncology and at that time had pleuritic anterior chest pain, low-grade feve rs. CBC demonstrated white count 17,600 with 66% monocytes, hemoglobin 11.8, platelets 115,0 00, did have 3.5% basophils. Review of his peripheral smear by pathology revealed many immat ure monocytes but no overt blasts. 05/19/15 had bone marrow bx confirming AML (see below) as well as flow cytometry. 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 -Results: 86% of blast equivalents, comprised of myeloblasts, monoblasts and promonocytes. Concurrent flow cytometry detected 23% myeloid blasts and 60% immature monocytic cells suppo rting this diagnosis. -Cytogenetics: Normal male karyotype -GeneTrails: CEBPA , NPM1, FLT3 NEGATIVE -Peripheral blood flow 05/27/15: Acute Myelomonocytic Leukemia (47% blasts and 30% monocyte s) -Cytogenetics: normal male karyotype -GeneTrails: PENDING -Plan to send telomere length and chromosomal breakage when he recovers Treatment: -Chemotherapy regimen: standard induction with 3+7 started 05/27/15 -Idarubicin 12 mg/m2 daily x 3 days -Cytarabine 100 mg/m2 CI IV daily x 7 days. -Chemo Day: 14 Patient is a candidate for transplant based on Dx and prognostic feature PENDING. Reques t insurance approval for typing. HLA typing sent 05/27/15. He has two brothers for potentia l donors. #Pancytopenia: secondary to acute leukemia. Folate, B12 normal -Monitor CBC with differential daily #Supportive Care: Growth factor: Not indicated with this chemotherapy regimen. Labs: Continue to check CBC with diff daily Transfusion parameters: -Transfuse PRBCs for HCT <21% -Transfuse PPH for platelet count <10,000 or sooner PRN s/s bleeding. HEENT: #Left acute parotitis: pain started ~06/02 and developed acute swelling 06/07 overnight. Ed ematous, tender and limited ROM. -CT max/facial with contrast 06/07 - Enlarged and heterogeneously enhancing left parotid g land with adjacent subcutaneous soft tissue edema and reactive lymphadenopathy. No abscess. -ID consulted and following: started zosyn 06/07, added vancomycin 06/08 for additional sta ph coverage. -ENT consulted and following: recommend abx as recommended per ID and supportive measures (warm compresses, sialogogues, pain control, hydration) -Morphine [employer] JUDGE started 06/07 Cardiovascular: Prechemotherapy Echo results on 05/18: EF 60-65 %. Left ventricular diastol ic function is normal. #Poss Hx of Pericarditis: presented to OSH on several visits to ED with CP. Echo done at [facility] x 2 both normal, no noted pericarditis or effusions. He received a course of colchicine an d is now asymptomatic. Pulmonary: #Current Smoker: Smoking cessation counseling offered -Nicotine gum PRN -Consider Nicotine patch is symptoms not controlled GI: #CINV: Improved on scheduled antiemetics -Zofran 8 mg PO BID -was on Compazine 5-10 mg q6hrs, now PRN -was on scop patch, no stopped as did not help -Antiemetics PRN /Renal: No acute issues Reproductive: #Sperm banking: completed 05/27/15 prior to chemotherapy Infectious Disease: #Screening Tests: Heb B/C - negative, HIV- negative #Parotitis: see HEENT section for abx. #Prophylaxis: Bacterial: Levaquin -For first neutropenic fever, preciado cx, CXR, d/c Levofloxacin and begin Cefepime for empiric broadspectrum coverage. Fungal: Posaconazole, level ordered 06/08 Viral: Acyclovir PCP: Not indicated Fluid/Nutrition/Lytes: #Nutrition: Regular diet, No Kezia's yogurt or Kefir #Fluid: 1L NS PRN for PO intake <2L/day by 2200 #Lytes: Continue to check chemistries daily. Replace per supportive care protocol. Disposition: Anticipate 3-4 admission for induction chemotherapy. [facility] [address] [place] [address] Mailcode: [id number] [facility] [id number], MD - 06/09/2015 5:27 PM PST . BMT/Leukemia Service Attending Progress Note [facility] Khurram Kelly is a 24 y.o. Male The patient was seen today in conjunction with JULIANA Smith in hematologic m alignancies. History was obtained, exam performed, laboratory studies reviewed, and plan dev eloped in conjunction with Ms Tracey. I concur with the evaluation and I agree with the assessment and plans as documented in the accompanying note that can be found within the el ectronic record. 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 Sweet's syndrome Subjective: continued improvement of oral pain; Can move neck fully now. No fevers or ri gors still. Has lower extremity subcut erythema nodules- 5--> some extension beyond borders . No discernible swelling LUE ROS: remainder is negative PFSH: significant for at bedside Exam: Last Vitals: BP 133/77 | Pulse 73 | Temp 36.9 C (98.4 F) | RR 16 | Ht 1.9 m (6' 2.8") | Wt 84.369 kg (186 lb) | SpO2 100% | BMI 23.37 kg/(m^2) 24 hour Vitals min/max : Systolic (24hrs), Av mmHg, Min:96 mmHg, Max:134 mmHg Diastolic (24hrs), Av mmHg, Min:48 mmHg, Max:91 mmHg Intake/Output Summary (Last 24 hours) at 06/09/15 1729 Last data filed at 06/09/15 1600 Gross per 24 hour Intake 5875 ml Output 4405 ml Net 1470 ml Temp (24hrs), Av.7 C (98 F), Min:36.3 C (97.3 F), Max:37 C (98.6 F) General: improved. Full ROM of neck now. Still without alopecia Skin: no rash and no catheter exit site tenderness; no further tenderness in Left axilla Eyes: normal, PERRLA and EOM's intact Mouth: normal mucosa; decreased swelling of left face. No percussion tenderness of maxill bettye or mandibular dentition on left side of jaw No sinus tenderness now Neck: full ROM Lymph: No palpable peripheral adenopathy Chest: Clear to auscultation Heart: RRR, no murmur, S1/S2 normal Abdomen: Soft and nontender without masses or hepatosplenomegaly Extrem: no pretibial/pedal edema; has 5 total small erythema, subcut nodules- sl extension beyond boundaries Neuro: alert, oriented x 3, cranial nerves intact, motor/sens non-focal Pain Scale (0-10): 2 Lab/X-ray findings: CBC with diff last 72 hours (or 3 results) Recent Labs 06/06/15 2350 06/07/15 2330 06/08/15 2345 WBC 0.56* 0.64* 0.65* HB 7.2* 8.1* 7.3* HCT 20.3* 22.4* 20.3* PLT 11* 6* 18* NEUTROPERC 0.8* 0.6* 0.0* LYMPHPERC 82.2* 85.3* 88.0* MONOPERC 12.4* 4.9 7.4 BASOPERC 0.0 0.0 0.0 EOSPERC 0.0* 0.0* 0.0* Liver Tests: Last 72 hours (or 3 results) Recent Labs 06/06/15234906/07/15 2330 06/08/15 2345 AST 18 27 23 ALT 26 26 29 TBILI 0.7 1.3* 0.9 AP 54 64 71 ALB 3.4* 3.7 3.5 TP 6.6 7.1 6.7 Chemistries: Last 72 Hours (or 3 results): Recent Labs 06/06/15234906/07/150 06/08/15 2345 NA 135* 131* 134* K 4.3 4.3 4.2 CL 102 99 104 BICARB 26 26 24 BUN 9 10 7 CR 0.83 0.86 0.87 GLU 100* 100* 107* CA 8.1* 8.3* 8.3* MG 2.2 2.1 2.1 PO4 2.9 3.5 3.1 Assessment/Plan: I certify that the history (as documented today) is reviewed, patient interviewed and pers onally examined by me. Heme: transfuse RBC today; neutropenic; s/ p induction chemotherapy with 3 + 7; Day 14 marrow today= 06/09/15 ID: afebrile, on Continues on prophylactic anti-infective agents.; neutropenic precautions Converted to IV zosyn/ vancomycin for treatment of oral cellulitis- Tx ID service in care management--> will follow their recommendation for treatment course-minimum of one week cour se Sinus CT- no clear evidence of sinusitis GI: no emesis or diarrhea; Continue oral care FEN: adq oral intake of fluids and calories Pain syndrome- may be able to return to oral pain meds Skin- ask Dermatology for consult- ? Infectious nodules vs inflammatory. Other: US of LUE--> basilic superficial vein thrombosis Treat with heat and elevation prn Continue maximal supports. Donor search is activated. Yung Zhao MD [facility] [id number] [facility] Mailcode: [id number] [place] [address] Sterling Espinosa MD - 1 08/10/2014 8:19 AM PST Otolaryngology / Head and Neck Surgery Progress Note Date: 06/09/2015 Hospital Day:14 ID: Khurram Kelly is a 24 y.o. Male with AML who developed left sided parotiti s. Interval History: -On vanc/zosyn per ID recs -Feels that pain in left parotid area is vastly improved over past 2 days -Swelling markedly improved -Afebrile -Says that he can eat better today, able to open mouth more - Has been performing frequent parotid massage - Hydrating well, took in 5L PO yesterday Last Vitals: Ht 1.9 m (6' 2.8"), Wt 84.369 kg (186 lb), BP 112/58, Pulse 62, Temperature 36.6 C (97.9 F), RR 16, SpO2 99%, BMI 23.37 kg/(m^2). 24 Hour Vitals: Temp Av.7 C (98.1 F) Min: 36.3 C (97.3 F) Max: 37 C (98.6 F) Pulse Av.3 Min: 60 Max: 82 Systolic (24hrs), Av mmHg, Min:96 mmHg, Max:134 mmHgDiastolic (24hrs), Av mmHg, Mi n:48 mmHg, Max:74 mmHg SpO2 Av.3 % Min: 98 % Max: 100 % Resp Av Min: 16 Max: 16 Intake/Output Summary (Last 24 hours) at 06/09/15 0826 Last data filed at 06/09/15 0602 Gross per 24 hour Intake 6080 ml Output 4405 ml Net 1675 ml Physical Exam: Gen: awake and alert, NAD, eating breakfast HEENT: L parotid much less swollen than yesterday; face looks more symmetric, less tender o marco the area. No erythema. Neck/tail of parotid no longer swollen. No adenopathy No trismus Good clear saliva flow from bharath's duct Labs: Chemistries: Last 72 Hours (or 3 results): Recent Labs 06/06/15 2350 06/07/15 2330 06/08/15 2345 NA 135* 131* 134* K 4.3 4.3 4.2 CL 102 99 104 BICARB 26 26 24 BUN 9 10 7 CR 0.83 0.86 0.87 GLU 100* 100* 107* CA 8.1* 8.3* 8.3* MG 2.2 2.1 2.1 PO4 2.9 3.5 3.1 CBC with diff last 72 hours (or 3 results) Recent Labs 06/06/15 2350 06/07/15 2330 06/08/15 2345 WBC 0.56* 0.64* 0.65* HB 7.2* 8.1* 7.3* HCT 20.3* 22.4* 20.3* PLT 11* 6* 18* NEUTROPERC 0.8* 0.6* 0.0* LYMPHPERC 82.2* 85.3* 88.0* MONOPERC 12.4* 4.9 7.4 BASOPERC 0.0 0.0 0.0 EOSPERC 0.0* 0.0* 0.0* Assessment and Plan: Khurram Kelly is a 24 y.o. Male with AML who developed L sided parotitis. Agree with continuing antibiotics to prevent superinfection in the setting of an inflame d parotid. Defer to ID for antibiotic choice. Likely ok to transition to PO antibiotics give n clinical improvement. Continue for total of 10-14 day course. Continue supportive care for parotitis including frequent parotid massage (milking the , warm compresses, sialogogues, pain control, excellent hydration (including IV hydration if patient is not taking adequate PO). We will continue to follow. Sterling Mccrary MD R2, Department of Otolaryngology/Head & Neck Surgery [facility] Pager [phone] Associated attestation - Carmen Mora MD - 06/09/2015 10:20 AM PSTAgree with assessment and plan as above. Carmen Mora MD Fellow in Head and Neck Surgery Department of Otolaryngology and Head & Neck Surgery Yung Zhao MD - 06/08/2015 6:06 PM PSTFormatting of this note might be different fr om the original. BMT/Leukemia Service Attending Progress Note [facility] Khurram Kelly is a 24 y.o. Male The patient was seen today in conjunction with JULIANA Smith in hematologic m alignancies. History was obtained, exam performed, laboratory studies reviewed, and plan dev eloped in conjunction with Ms Tracey. I concur with the evaluation and I agree with the assessment and plans as documented in the accompanying note that can be found within the el ectronic record. 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 PAIN markedly decreased. No fevers or rigors still. Has lower extremity subcut erythema nodules- 5 No discernible swelling LUE ROS: remainder is negative PFSH: significant for at bedside Exam: Last Vitals: BP 109/59 | Pulse 72 | Temp 37 C (98.6 F) | RR 16 | Ht 1.9 m (6' 2.8") | W t 84.823 kg (187 lb) | SpO2 99% | BMI 23.5 kg/(m^2) 24 hour Vitals min/max : Systolic (24hrs), Av mmHg, Min:109 mmHg, Max:134 mmHg Diastolic (24hrs), Av mmHg, Min:57 mmHg, Max:74 mmHg Intake/Output Summary (Last 24 hours) at 06/08/15 1809 Last data filed at 06/08/15 1800 Gross per 24 hour Intake 5127 ml Output 5005 ml Net 122 ml Temp (24hrs), Av C (98.6 F), Min:36.8 C (98.2 F), Max:37.3 C (99.1 F) General: looks in discomfort. moving neck gingerly. Skin: no rash and no catheter exit site tenderness; no further tenderness in Left axilla Eyes: normal, PERRLA and EOM's intact Mouth: normal mucosa; Mild trismus?; Significant swelling of left face, extending to subm andibular area Sinus tenderness on palpation on left maxilla Neck: restricted ROM Lymph: No palpable peripheral adenopathy Chest: Clear to auscultation Heart: RRR, no murmur, S1/S2 normal Abdomen: Soft and nontender without masses or hepatosplenomegaly Extrem: no pretibial/pedal edema; has 5 total small erythema, subcut nodules- unchanged ove rnight; still within boundaries Neuro: alert, oriented x 3, cranial nerves intact, motor/sens non-focal Pain Scale (0-10): 2 Lab/X-ray findings: CBC with diff last 72 hours (or 3 results) Recent Labs 06/06/153906/06/15234906/07/152329 WBC 0.52* 0.56* 0.64* HB 7.2* 7.2* 8.1* HCT 20.0* 20.3* 22.4* PLT 9* 11* 6* NEUTROPERC 4.3* 0.8* 0.6* LYMPHPERC 92.4* 82.2* 85.3* MONOPERC 3.3* 12.4* 4.9 BASOPERC 0.0 0.0 0.0 EOSPERC 0.0* 0.0* 0.0* Liver Tests: Last 72 hours (or 3 results) Recent Labs 06/06/153906/06/15234906/07/152329 AST 18 18 27 ALT 25 26 26 TBILI 0.8 0.7 1.3* AP 46* 54 64 ALB 3.5 3.4* 3.7 TP 6.6 6.6 7.1 Chemistries: Last 72 Hours (or 3 results): Recent Labs 06/06/153906/06/15234906/07/152329 NA 135* 135* 131* K 4.1 4.3 4.3 CL 104 102 99 BICARB 26 26 26 BUN 8 9 10 CR 0.78 0.83 0.86 GLU 97 100* 100* CA 8.0* 8.1* 8.3* MG 2.1 2.2 2.1 PO4 3.0 2.9 3.5 Assessment/Plan: I certify that the history (as documented today) is reviewed, patient interviewed and pers onally examined by me. Heme: transfuse PPH again today; neutropenic; s/ p induction chemotherapy with 3 + 7; Day 14 marrow in 24 hrs- scheduled for 06/09/15 ID: afebrile, on Continues on prophylactic anti-infective agents.; neutropenic precautions Converted to IV zosyn/ vancomycin for treatment of oral cellulitis Tx ID service in care management Sinus CT- no clear evidence of sinusitis GI: no emesis or diarrhea; Continue oral care FEN: adq oral intake of fluids and calories Pain syndrome- convert oral pain meds to IV [employer] JUDGE Other: US of LUE--> basilic superficial vein thrombosis Treat with heat and elevation prn Yung Zhao MD [place] [id number] [facility] Mailcode: [id number] [place] [address] ary Tracey PA - 06/08/2015 4:32 PM PST . Daily NPP Note - Chemotherapy [facility] Attending: Yung Zhao MD PCP: Pending Pcp ADDITION Date of Admission: 05/26/2015 Hematologic Malignancy: AML Reason for admission: Work-up and Induction Chemotherapy 24 Hour Events/Current Daily Plan: -Acute Myelomonocytic Leukemia, normal cytogenetics, genetrails PENDING: day 13 of 3+7 viki ction. Plan for day 14 bmbx tomorrow 06/09 at 1pm. -Pancytopenic: as anticipated with recent chemo. Standard transfusion parameters. Received platelets today. -Lytes: Standard electrolyte repletion parameters. No replacements required today. -Left sided parotitis: pain started ~06/02 and developed acute swelling 06/07 overnight. Ed ematous, tender and limited ROM. -CT max/facial with contrast 06/07 - Enlarged and heterogeneously enhancing left parotid g land with adjacent subcutaneous soft tissue edema and reactive lymphadenopathy. No abscess. -ID consulted and following: started zosyn yesterday, added vancomycin today for additiona l staph coverage. -ENT consulted and following: recommend abx as recommended per ID and supportive measures (warm compresses, sialogogues, pain control, hydration) -Morphine [employer] JUDGE started 06/07 -CINV: Improved overall. Continue Zofran BID and antiemetics PRN (has failed trial of ervin zine ATC and scop patch) -Leg lesions: new mildly indurated and tender scattered lesions (3-4 on each leg). Monitor for now and consider derm consult for biopsy if worsens. Subjective: Feeling better today, left sided edema and pain is improved since yesterday. Ab le to open mouth a little more today. Noticed leg lesions feeling a little tender. Objective: Last Vitals: BP 109/59 | Pulse 72 | Temp 37 C (98.6 F) | RR 16 | Ht 1.9 m (6' 2.8") | W t 84.823 kg (187 lb) | SpO2 99% | BMI 23.5 kg/(m^2) 24 Hour Vital Min/Max: Systolic (24hrs), Av mmHg, Min:109 mmHg, Max:134 mmHg Diastolic (24hrs), Av mmHg, Min:57 mmHg, Max:74 mmHg Pulse Min: 62 Max: 86 Temp Min: 36.8 C (98.2 F) Max: 37.3 C (99.1 F) Resp Min: 16 Max: 18 SpO2 Min: 97 % Max: 100 % Intake/Output Summary (Last 24 hours) at 06/08/15 1632 Last data filed at 06/08/15 1600 Gross per 24 hour Intake 4777 ml Output 5205 ml Net -428 ml Physical Exam: General: This is a male in no acute distress. Sitting up in bed. HEENT: PERRL. Sclerae anicteric. Mucosa pink and moist without erythema, increased range of motion today but still somewhat limited. Edema left face/neck most indurated anterior to left ear and tender. Skin: No rash, lesions noted. Chest: Lungs clear to auscultation bilat. CV: RRR, no murmurs. Abdomen: S/NT/ND with NABS. No HSM appreciated. Extremities: Pulses strong and equal bilaterally. No c/c/e. NeuroPsych: Alert and oriented x 3. Grossly nonfocal exam. CVC: PICC line dressing dry and intact Laboratory Results: Recent Labs 06/06/15 0040 06/06/15 2350 06/07/15 2330 NA 135* 135* 131* K 4.1 4.3 4.3 CL 104 102 99 BICARB 26 26 26 BUN 8 9 10 CR 0.78 0.83 0.86 GLU 97 100* 100* CA 8.0* 8.1* 8.3* AST 18 18 27 ALT 25 26 26 AP 46* 54 64 TBILI 0.8 0.7 1.3* TP 6.6 6.6 7.1 ALB 3.5 3.4* 3.7 Recent Labs 06/06/15 0040 06/06/15 2350 06/07/15 2330 WBC 0.52* 0.56* 0.64* RBC 2.19* 2.26* 2.55* HB 7.2* 7.2* 8.1* HCT 20.0* 20.3* 22.4* PLT 9* 11* 6* NEUTROPERC 4.3* 0.8* 0.6* LYMPHPERC 92.4* 82.2* 85.3* MONOPERC 3.3* 12.4* 4.9 BASOPERC 0.0 0.0 0.0 EOSPERC 0.0* 0.0* 0.0* Meds: Reviewed on rounds, see current MAR for medication list SUMMARY OF PATIENT'S HOSPITALIZATION History of Present Illness: Khurram Kelly is 24 yo M with pmhx of pericarditis and new diagnosis of acute leukemia admitted for induction and management. Had been in usual state of [facility] 03/13/15 (the night of his wedding) at which time he noted bilateral ankle pain and swellin g. This persisted and worsened intermittently, notably when hunting on 03/19/15. Then after w ork, couldn't walk well 2/2 pain and inevitably couldn't bear weight on his feet. Presented to the ED and was diagnosed with cellulitis of the RLE, given antibiotics. During evaluation patient also noted to have pancytopenia with subsequent white blood cell differential ident ifying a predominance of early appearing monocytes. On 04/18/15 began to have pleuritic anterior chest pains, low-grade fevers occasionally up to 101. Also had onset of swelling and erythema over his left ankle, seen in the [facility]'s emergency room on 04/19/15. CT angiogram negative for blood clot. CBC demonstrated whi te count 15,300 with 59% monocytes, 3% immature monocytes, hemoglobin 11.8, platelets 146,00 0. He was apparently treated with antibiotics, also colchicine and anti-inflammatory agents - for possible dx of pericarditis - with complete resolution of his symptoms. After he finished the antibiotics and other medicines, the symptoms came back, repeat trip to the emergency room on 04/26/15. Repeat CT angiogram was again negative for pulmonary embo carmen or other abnormality. CBC showed white count 14,300 with 48% monocytes, 4% immature mono cytes, hemoglobin 12.8, platelets 180,000. He was again treated with the anti-inflammatory r maye colchicine, no antibiotics, again with complete resolution of symptoms. Was referred to Oncology and at that time had pleuritic anterior chest pain, low-grade feve rs. CBC demonstrated white count 17,600 with 66% monocytes, hemoglobin 11.8, platelets 115,0 00, did have 3.5% basophils. Review of his peripheral smear by pathology revealed many immat ure monocytes but no overt blasts. 05/19/15 had bone marrow bx confirming AML (see below) as well as flow cytometry. 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 -Results: 86% of blast equivalents, comprised of myeloblasts, monoblasts and promonocytes. Concurrent flow cytometry detected 23% myeloid blasts and 60% immature monocytic cells suppo rting this diagnosis. -Cytogenetics: Normal male karyotype -GeneTrails: CEBPA , NPM1, FLT3 NEGATIVE -Peripheral blood flow 05/27/15: Acute Myelomonocytic Leukemia (47% blasts and 30% monocyte s) -Cytogenetics: normal male karyotype -GeneTrails: PENDING -Plan to send telomere length and chromosomal breakage when he recovers Treatment: -Chemotherapy regimen: standard induction with 3+7 started 05/27/15 -Idarubicin 12 mg/m2 daily x 3 days -Cytarabine 100 mg/m2 CI IV daily x 7 days. -Chemo Day: 13 Patient is a candidate for transplant based on Dx and prognostic feature PENDING. Reques t insurance approval for typing. HLA typing sent 05/27/15. He has two brothers for potentia l donors. #Pancytopenia: secondary to acute leukemia. Folate, B12 normal -Monitor CBC with differential daily #Supportive Care: Growth factor: Not indicated with this chemotherapy regimen. Labs: Continue to check CBC with diff daily Transfusion parameters: -Transfuse PRBCs for HCT <21% -Transfuse PPH for platelet count <10,000 or sooner PRN s/s bleeding. HEENT: #Left acute parotitis: pain started ~06/02 and developed acute swelling 06/07 overnight. Ed ematous, tender and limited ROM. -CT max/facial with contrast 06/07 - Enlarged and heterogeneously enhancing left parotid g land with adjacent subcutaneous soft tissue edema and reactive lymphadenopathy. No abscess. -ID consulted and following: started zosyn 06/07, added vancomycin 06/08 for additional sta ph coverage. -ENT consulted and following: recommend abx as recommended per ID and supportive measures (warm compresses, sialogogues, pain control, hydration) -Morphine [employer] JUDGE started 06/07 Cardiovascular: Prechemotherapy Echo results on 05/18: EF 60-65 %. Left ventricular diastol ic function is normal. #Poss Hx of Pericarditis: presented to OSH on several visits to ED with CP. Echo done at [facility] x 2 both normal, no noted pericarditis or effusions. He received a course of colchicine an d is now asymptomatic. Pulmonary: #Current Smoker: Smoking cessation counseling offered -Nicotine gum PRN -Consider Nicotine patch is symptoms not controlled GI: #CINV: Improved on scheduled antiemetics -Zofran 8 mg PO BID -was on Compazine 5-10 mg q6hrs, now PRN -was on scop patch, no stopped as did not help -Antiemetics PRN /Renal: No acute issues Reproductive: #Sperm banking: completed 05/27/15 prior to chemotherapy Infectious Disease: #Screening Tests: Heb B/C - negative, HIV- negative #Parotitis: see HEENT section for abx. #Prophylaxis: Bacterial: Levaquin -For first neutropenic fever, preciado cx, CXR, d/c Levofloxacin and begin Cefepime for empiric broadspectrum coverage. Fungal: Posaconazole, level ordered 06/08 Viral: Acyclovir PCP: Not indicated Fluid/Nutrition/Lytes: #Nutrition: Regular diet, No Kezia's yogurt or Kefir #Fluid: 1L NS PRN for PO intake <2L/day by 2200 #Lytes: Continue to check chemistries daily. Replace per supportive care protocol. Disposition: Anticipate 3-4 admission for induction chemotherapy. JULIANA [facility] [address] [facility] Mailcode: [id number] [place] [id number] Inga Silva MD - 06/08/2015 4:24 PM PSTFormatting of this note might be different from the origin al. TRANSPLANT INFECTIOUS DISEASES FOLLOW UP VISIT NOTE I assumed ID staff care from Dr. Clark today. I saw & examined Mr. Kelly. Chart reviewed & events noted. CT last night c/w left parotitis. ENT following & providing advice on supportive care/parot id massage, sialogogues, etc. Afebrile. On zosyn - vancomycin added this morning for better coverage of Staph aureus (MRS A). Patient reports left face dyeing machine back tender, but perhaps less tense & better able to open jaw to day. Some upper chest (indicates sternal notch) pain today - he wonders if this is related t o ENT exam last night. ROS: No diarrhea. No cough. No rash. No other new complaints. Current Medications: Current facility-administered medications: acyclovir (ZOVIRAX) tablet 800 mg, 800 mg, oral, DAILY, RONALD Merrill, 800 mg at 06/08/15 0801 alteplase (CATHFLO ACTIVASE) injection 2 mg, 2 mg, Intracatheter, PRN, JULIANA Cosme , 2 mg at 06/05/15 1650 chlorhexidine (PERIDEX) mouthwash 15 mL, 15 mL, oral, Q6H, Abimael Campo MD, 15 mL at 1 08/09/14 1204 cyclobenzaprine (FLEXERIL) tablet 10 mg, 10 mg, oral, Q8H PRN, Yung Zhao MD, 10 mg a t 06/08/15 0645 diphenhydrAMINE (BENADRYL) capsule 25 mg, 25 mg, oral, Q4H PRN, Yari Garcia MD diphenhydrAMINE (BENADRYL) injection 25 mg, 25 mg, intravenous, Q4H PRN, Yari Garcia MD [id number] (SPECIAL MOUTHWASH) suspension (compound) 5-10 mL, 5-10 mL , oral, QID PRN, Kan Best MD, 10 mL at 06/06/15 1728 haloperidol (HALDOL) tablet 0.5-2 mg, 0.5-2 mg, oral, Q4H PRN, Yari Garcia MD haloperidol lactate (HALDOL) injection 0.5-2 mg, 0.5-2 mg, intravenous, Q4H PRN, Yari shore MD LORazepam (ATIVAN) tablet 0.5 mg, 0.5 mg, oral, Q6H PRN, Abimael Campo MD, 0.5 mg at 0830 magnesium sulfate in water IV (RTU) 4 g, 4 g, intravenous, PRN, Blair Deng MD magnesium sulfate IV 8 g, 8 g, intravenous, PRN, Blair Deng MD morphine 5 mg/mL [employer] JUDGE infusion (ADULT), , intravenous, CONTINUOUS, Em Saunders PA-C NaCl 0.9 % solution, 1,000 mL, intravenous, PRN, Em Saunders PA-C nalOXone (NARCAN) injection, , intravenous, PRN, Em Saunders PA-C nicotine polacrilex (NICORETTE) gum 2 mg, 2 mg, oral, PRN, Robyn Contreras NP ondansetron (ZOFRAN) tablet 8 mg, 8 mg, oral, BID, Lamin Funes MD,PhD, 8 mg at 06/08/15 08 01 piperacillin-tazobactam (ZOSYN) IV 4.5 g, 4.5 g, intravenous, Q6H, Em Saunders PA-C, 4. 5 g at 06/08/15 1532 polyethylene glycol (MIRALAX) powder 17 g, 17 g, oral, DAILY, ASAEL Madera, 17 g at 06/08/15 0801 [COMPLETED] posaconazole DR (NOXAFIL) tablet 300 mg, 300 mg, oral, BID, 300 mg at 05/31/[address] (NOXAFIL) tablet 300 mg, 300 mg, oral, DAILY, Robyn Contreras, REBECCA, 300 mg at 06/08/15 0801 potassium chloride IV (central line) 40 mEq, 40 mEq, intravenous, PRN AND potassium chl oride IV (central line) 60 mEq, 60 mEq, intravenous, PRN, Blair Deng MD potassium chloride SR (K-DUR) tablet 40 mEq, 40 mEq, oral, PRN, Blair Deng MD potassium phosphate IV 30 mmol, 30 mmol, intravenous, PRN AND potassium phosphate IV 40 mmol, 40 mmol, intravenous, PRN, Blair Deng MD prochlorperazine (COMPAZINE) tablet 5-10 mg, 5-10 mg, oral, Q6H PRN, Lamin Funes MD,PhD senna (SENOKOT) tablet 1 tablet, 1 tablet, oral, BID PRN, Gregory Whitfield MD, 1 tablet at 06/07/15 2206 senna-docusate (SENOKOT S) 8.6-50 mg 1 tablet, 1 tablet, oral, BID, ASAEL Madera, 1 tablet at 06/08/15 0705 sodium phosphate IV 30 mmol, 30 mmol, intravenous, PRN, Blair Deng MD sodium phosphate IV 40 mmol, 40 mmol, intravenous, PRN, Blair Deng MD traZODone (DESYREL) dose 25 mg, 25 mg, oral, HS PRN, Kan Best MD, 25 mg at 06/04/15 2 058 vancomycin (VANCOCIN) IV 1,250 mg, 1,250 mg, intravenous, Q8H, JULIANA Moya, 1 ,250 mg at 06/08/15 1203 Allergies: Review of patient's allergies indicates no known allergies. Physical Exam VS: Ht 1.9 m (6' 2.8"), Wt 84.823 kg (187 lb), BP 109/59, Pulse 72, Temperature 37 C (98. 6 F), RR 16, SpO2 99%, BMI 23.5 kg/(m^2). Gen: comfortable appearing, nontoxic HEENT: diffuse soft tissue swelling & tenderness of angle of left jaw. Good dentition - no tender teeth. No swelling or skin change at sternal notch. Clear lungs. Heart regular, no murmur. Abdomen nontender. Skin: diffuse petechiae, posterior calves with few encircled faintly erythematous & slightl y tender patches LUE PICC site okay. Diagnostic Tests: Lab Results Component Value Date WBC 0.64* 06/07/2015 RBC 2.55* 06/07/2015 HB 8.1* 06/07/2015 HCT 22.4* 06/07/2015 MCV 87.8 06/07/2015 MCHC 36.2 06/07/2015 RDW 44.4 06/07/2015 PLT 6* 06/07/2015 NEUTROPERC 0.6* 06/07/2015 LYMPHPERC 85.3* 06/07/2015 MONOPERC 4.9 06/07/2015 EOSPERC 0.0* 06/07/2015 BASOPERC 0.0 06/07/2015 ATYPICALPCT 3.1* 06/07/2015 NEUTROPHILCO 0.00* 06/07/2015 MONOCYTECO 0.03* 06/07/2015 EOSCO 0.00 06/07/2015 BASOPHILCO 0.00 06/07/2015 Lab Results Component Value Date NA 131* 06/07/2015 K 4.3 06/07/2015 CL 99 06/07/2015 BICARB 26 06/07/2015 BUN 10 06/07/2015 CR 0.86 06/07/2015 GLU 100* 06/07/2015 CA 8.3* 06/07/2015 Lab Results Component Value Date TBILI 1.3* 06/07/2015 AP 64 06/07/2015 TP 7.1 06/07/2015 ALB 3.7 06/07/2015 AST 27 06/07/2015 ALT 26 06/07/2015 CULTURES: 06/07 blood culture pending Recent radiographs: 06/07/15 CT MAX'FACIAL W CONTRAST EXAM: CT face with contrast HISTORY: New AML status post induction therapy. Now neutropenic with new left cheek swelling. Evaluate for abscess or osteomyelitis. COMPARISON: CT sinus, 05/28/15 TECHNIQUE: CT of the face with Omnipaque intravenous contrast. FINDINGS: Face: No fractures Orbits: Unremarkable Soft tissues: There is enlargement and heterogeneous enhancement of the left parotid gland. Within the adjacent soft tissues, there is subcutaneous fat stranding and skin thickening, extending from soft tissues overlying the parotid gland to the angle of the mandible. Several adjacent level II lymph nodes are prominent, measuring up to 10 mm in short axis, likely reactive. No inflammatory fluid collection is identified within the parotid gland or within the adjacent soft tissues. No adjacent osseous destruction. No parotid duct calculus is identified. Paranasal sinuses: The circumferential mucosal thickening in the inferior right maxillary sinus. Minimal mucosal thickening in the left sphenoid sinus. Mandible: Unremarkable No abnormal enhancement Brain: Visualized portions are unremarkable IMPRESSION: Enlarged and heterogeneously enhancing left parotid gland with adjacent subcutaneous soft tissue edema and reactive lymphadenopathy, which may represent parotiditis. Impression: 24 year old man with AML, s/p induction chemotherapy, neutropenic but so far af ebrile. Left parotitis. Recommendations: Add in vancomycin for empiric MRSA coverage - target vancomycin trough 10- 15. Okay continue empiric zosyn, as parotitis can be mixed infection & advantageous to cover oral anaerobes as well. Supportive care as advised by ENT. On posaconazole prophylaxis - check trough with next dose. On acyclovir prophylaxis. Above d/w primary team. Thank you. Will follow with you. Lainey Arenas MD [facility] [id number] [facility] Mailcode: [id number] [place] [address] Em Vinson P A-Daron - 06/07/2015 1:36 PM PST Daily NPP Note - Chemotherapy [facility] Attending: Yung Zhao MD PCP: Pending Pcp ADDITION Date of Admission: 05/26/2015 Hematologic Malignancy: AML Reason for admission: Work-up and Induction Chemotherapy 24 Hour Events/Current Daily Plan: -AML: confirmed by [facility] PB, reviewed outside path c/w Acute Myelomonocytic Leukemia, normal cytogenetics, genetrails PENDING. Currently day 12 of 3+7 induction. Plan for day 14 bmbx o n 06/09. -Pancytopenic: as anticipated with recent chemo. Standard transfusion parameters. Received 1 unit PRBC today. -Lytes: Standard electrolyte repletion parameters. No replacements required today. -Left cheek/jaw swelling: pain started ~06/02 and developed acute swelling 06/07 overnight. Swelling tender and difficult for patient to open mouth. -CT max/facial with contrast 06/07 - PENDING -ID consult, awaiting recommendations. Continues Augmentin at this time -ENT consult, awaiting recommendations -Morphine [employer] JUDGE as of 06/07 for pain -Chlorhexidine and magic mouth rinse PRN -CINV: stable. Continue Zofran BID and antiemetics PRN (has failed trial of compazine ATC a nd scop patch) -Nutrition: took in 100% of 2 meals with 3.6 L of PO fluid intake documented yesterday. Subjective: Left buccal mucosa/cheek is very tender and now with swelling that developed ov ernight. Difficult to turn head to left without swelling causing too much pain. He states he can feel something in cheek. No fevers. Objective: Last Vitals: BP 119/66 | Pulse 70 | Temp 36.4 C (97.5 F) | RR 16 | Ht 1.9 m (6' 2.8") | Wt 85.186 kg (187 lb 12.8 oz) | SpO2 100% | BMI 23.6 kg/(m^2) 24 Hour Vital Min/Max: Systolic (24hrs), Av mmHg, Min:115 mmHg, Max:131 mmHg Diastolic (24hrs), Av mmHg, Min:55 mmHg, Max:66 mmHg Pulse Min: 60 Max: 74 Temp Min: 36.4 C (97.5 F) Max: 37.5 C (99.5 F) Resp Min: 14 Max: 18 SpO2 Min: 98 % Max: 100 % Intake/Output Summary (Last 24 hours) at 06/07/15 1336 Last data filed at 06/07/15 1220 Gross per 24 hour Intake 4701 ml Output 4380 ml Net 321 ml Physical Exam: General: This is a male in no acute distress. Sitting up in bed. HEENT: PERRL. Sclerae anicteric. Mucosa pink and moist without erythema, minimal visibili ty into oral cavity due to decreased ROM, no obvious exudate. Tender of left cheek. Skin: No rash, lesions noted. Chest: Lungs clear to auscultation bilat. CV: RRR, no murmurs. Abdomen: S/NT/ND with NABS. No HSM appreciated. Extremities: Pulses strong and equal bilaterally. No c/c/e. NeuroPsych: Alert and oriented x 3. Grossly nonfocal exam. CVC: PICC line dressing dry and intact Laboratory Results: Recent Labs 06/05/15806/06/153906/06/15 2350 NA 134* 135* 135* K 3.9 4.1 4.3 CL 104 104 102 BICARB 24 26 26 BUN 10 8 9 CR 0.86 0.78 0.83 GLU 100* 97 100* CA 7.8* 8.0* 8.1* AST 17 18 18 ALT 25 25 26 AP 43* 46* 54 TBILI 0.6 0.8 0.7 TP 6.2* 6.6 6.6 ALB 3.3* 3.5 3.4* Recent Labs 06/05/15806/06/153906/06/15 2350 WBC 0.64* 0.52* 0.56* RBC 2.32* 2.19* 2.26* HB 7.5* 7.2* 7.2* HCT 21.5* 20.0* 20.3* PLT 8* 9* 11* NEUTROPERC 1.0* 4.3* 0.8* LYMPHPERC 74.0* 92.4* 82.2* MONOPERC 15.0* 3.3* 12.4* BASOPERC 0.0 0.0 0.0 EOSPERC 0.0* 0.0* 0.0* Meds: Reviewed on rounds, see current MAR for medication list SUMMARY OF PATIENT'S HOSPITALIZATION History of Present Illness: Khurram Kelly is 24 yo M with pmhx of pericarditis and new diagnosis of acute leukemia admitted for induction and management. Had been in usual state of [facility] 03/13/15 (the night of his wedding) at which time he noted bilateral ankle pain and swellin g. This persisted and worsened intermittently, notably when hunting on 03/19/15. Then after w ork, couldn't walk well 2/2 pain and inevitably couldn't bear weight on his feet. Presented to the ED and was diagnosed with cellulitis of the RLE, given antibiotics. During evaluation patient also noted to have pancytopenia with subsequent white blood cell differential ident ifying a predominance of early appearing monocytes. On 04/18/15 began to have pleuritic anterior chest pains, low-grade fevers occasionally up to 101. Also had onset of swelling and erythema over his left ankle, seen in the [facility] emergency room on 04/19/15. CT angiogram negative for blood clot. CBC demonstrated whi te count 15,300 with 59% monocytes, 3% immature monocytes, hemoglobin 11.8, platelets 146,00 0. He was apparently treated with antibiotics, also colchicine and anti-inflammatory agents - for possible dx of pericarditis - with complete resolution of his symptoms. After he finished the antibiotics and other medicines, the symptoms came back, repeat trip to the emergency room on 04/26/15. Repeat CT angiogram was again negative for pulmonary embo carmen or other abnormality. CBC showed white count 14,300 with 48% monocytes, 4% immature mono cytes, hemoglobin 12.8, platelets 180,000. He was again treated with the anti-inflammatory r maye colchicine, no antibiotics, again with complete resolution of symptoms. Was referred to Oncology and at that time had pleuritic anterior chest pain, low-grade feve rs. CBC demonstrated white count 17,600 with 66% monocytes, hemoglobin 11.8, platelets 115,0 00, did have 3.5% basophils. Review of his peripheral smear by pathology revealed many immat ure monocytes but no overt blasts. 05/19/15 had bone marrow bx confirming AML (see below) as well as flow cytometry. Hospitalization History: Hematology: #AML Pertinent Diagnostics: -BM Bx done at OSH 05/19/15, slides reviewed by [facility] and c/w Acute Myelomonocytic Leukemia in a 90% cellular marrow. -Results: 86% of blast equivalents, comprised of myeloblasts, monoblasts and promonocytes. Concurrent flow cytometry detected 23% myeloid blasts and 60% immature monocytic cells suppo rting this diagnosis. -Cytogenetics: Normal male karyotype -GeneTrails: CEBPA , NPM1, FLT3 NEGATIVE -Peripheral blood flow 05/27/15: Acute Myelomonocytic Leukemia (47% blasts and 30% monocyte s) -Cytogenetics: normal male karyotype -GeneTrails: PENDING -Plan to send telomere length and chromosomal breakage when he recovers Treatment: -Chemotherapy regimen: standard induction with 3+7 started 05/27/15 -Idarubicin 12 mg/m2 daily x 3 days -Cytarabine 100 mg/m2 CI IV daily x 7 days. -Chemo Day: 12 Patient is a candidate for transplant based on Dx and prognostic feature PENDING. Reques t insurance approval for typing. HLA typing sent 05/27/15. He has two brothers for potentia l donors. #Neutropenia, Anemia, Thrombocytopenia: secondary to acute leukemia. Folate, B12 normal -Monitor CBC with differential daily #Supportive Care: Growth factor: Not indicated with this chemotherapy Labs: Continue to check CBC with diff daily Transfusion parameters: -Transfuse PRBCs for HCT <21% -Transfuse PPH for platelet count <10,000 or sooner PRN s/s bleeding. HEENT: #Left cheek/jaw swelling: pain started ~06/02 and developed acute swelling 06/07 overnight. Swelling tender and difficult for patient to open mouth. -CT max/facial with contrast 06/07 - PENDING -ID consult, awaiting recommendations. Continues Augmentin (06/06- ) -ENT consult, awaiting recommendations -Morphine [employer] JUDGE as of 06/07 for pain -Chlorhexidine and magic mouth rinse PRN Cardiovascular: Prechemotherapy Echo results on 05/18: EF 60-65 %. Left ventricular diastol ic function is normal. #Poss Hx of Pericarditis: presented to OSH on severel visits to ED with CP, worse when sitt ing forward in high fowlers. Echo done at OSH x 2 both normal, no noted pericarditis or effu sions. He received a course of colchicine and is now asymptomatic. Pulmonary: #Current Smoker: Smoking cessation counseling offered -Nicotine gum PRN -Consider Nicotine patch is symptoms not controlled GI: #CINV: Improved on scheduled antiemetics -Zofran 8 mg PO BID -was on Compazine 5-10 mg q6hrs, now PRN -was on scop patch, no stopped as did not help -Antiemetics PRN /Renal: No acute issues Reproductive: #Sperm banking: completed 05/27/15 prior to chemotherapy Infectious Disease: #Screening Tests: Heb B/C - negative, HIV- negative #Left cheek/jaw swelling: concern for possible infection (see HEENT section above) #Prophylaxis: Bacterial: Levaquin -For first neutropenic fever, preciado cx, CXR, d/c Levofloxacin and begin Cefepime for empiric broadspectrum coverage. Fungal: Posaconazole, level ordered 06/08 Viral: Acyclovir PCP: Not indicated Fluid/Nutrition/Lytes: #Nutrition: Regular diet, No Kezia's yogurt or Kefir #Fluid: 1L NS PRN for PO intake <2L/day by 2200 #Lytes: -Continue to check chemistries daily -Replace per supportive care protocol. Disposition: Anticipate 3-4 admission for induction chemotherapy. Em Saunders PA-C [place] [id number] [place] [address] Mailcode: [id number] [place] [address] Yung Rodas M D - 06/07/2015 12:50 PM PST BMT/Leukemia Service Attending Progress Note [facility] Khurram Kelly is a 24 y.o. Male The patient was seen today in conjunction with JULIANA Zuleta in hematologic malignan cies. History was obtained, exam performed, laboratory studies reviewed, and plan developed in conjunction with Ms Saunders. I concur with the evaluation and I agree with the assessmen t and plans as documented in the accompanying note that can be found within the electronic r ecord. 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 Increasing difficulty with opening mouth . A ble to take pills still. PAIN markedly increased. No fevers or rigors still. No discernible swelling LUE ROS: remainder is negative PFSH: significant for at bedside Exam: Last Vitals: BP 119/66 | Pulse 70 | Temp 36.4 C (97.5 F) | RR 16 | Ht 1.9 m (6' 2.8") | Wt 85.186 kg (187 lb 12.8 oz) | SpO2 100% | BMI 23.6 kg/(m^2) 24 hour Vitals min/max : Systolic (24hrs), Av mmHg, Min:115 mmHg, Max:131 mmHg Diastolic (24hrs), Av mmHg, Min:55 mmHg, Max:66 mmHg Intake/Output Summary (Last 24 hours) at 06/07/15 1252 Last data filed at 06/07/15 1220 Gross per 24 hour Intake 4701 ml Output 4380 ml Net 321 ml Temp (24hrs), Av.9 C (98.4 F), Min:36.4 C (97.5 F), Max:37.5 C (99.5 F) General: looks in discomfort. moving neck gingerly. Skin: no rash and no catheter exit site tenderness; no further tenderness in Left axilla Eyes: normal, PERRLA and EOM's intact Mouth: normal mucosa; Mild trismus?; Significant swelling of left face, extending to subm andibular area Sinus tenderness on palpation on left maxilla Neck: restricted ROM Lymph: No palpable peripheral adenopathy Chest: Clear to auscultation Heart: RRR, no murmur, S1/S2 normal Abdomen: Soft and nontender without masses or hepatosplenomegaly Extrem: no pretibial/pedal edema Neuro: alert, oriented x 3, cranial nerves intact, motor/sens non-focal Pain Scale (0-10): 8-10 Lab/X-ray findings: CBC with diff last 72 hours (or 3 results) Recent Labs 06/05/15 0009 06/06/15 0040 06/06/15 2350 WBC 0.64* 0.52* 0.56* HB 7.5* 7.2* 7.2* HCT 21.5* 20.0* 20.3* PLT 8* 9* 11* NEUTROPERC 1.0* 4.3* 0.8* LYMPHPERC 74.0* 92.4* 82.2* MONOPERC 15.0* 3.3* 12.4* BASOPERC 0.0 0.0 0.0 EOSPERC 0.0* 0.0* 0.0* Liver Tests: Last 72 hours (or 3 results) Recent Labs 06/05/15 0009 06/06/150 06/06/15 2350 AST 17 18 18 ALT 25 25 26 TBILI 0.6 0.8 0.7 AP 43* 46* 54 ALB 3.3* 3.5 3.4* TP 6.2* 6.6 6.6 Chemistries: Last 72 Hours (or 3 results): Recent Labs 06/05/15 00006/06/150 06/06/15 2350 NA 134* 135* 135* K 3.9 4.1 4.3 CL 104 104 102 BICARB 24 26 26 BUN 10 8 9 CR 0.86 0.78 0.83 GLU 100* 97 100* CA 7.8* 8.0* 8.1* MG 1.9 2.1 2.2 PO4 2.7 3.0 2.9 Assessment/Plan: I certify that the history (as documented today) is reviewed, patient interviewed and pers onally examined by me. Heme: transfuse RBC and PPH; Now with neutropenia; s/ p induction chemotherapy with 3 + 7; Day 14 marrow in 48 hrs- scheduled for 06/09/15 ID: afebrile, on Continues on prophylactic anti-infective agents.; neutropenic precautions On levofloxacin; augmentin added yesterday for oral coverage. Will need to switch to IV antibiotics; will involve Tx ID service in care management Also ask ENT to evaluate pt for etiology and location of abcess; may need repeat imaging sinus CT- no clear evidence of sinusitis GI: no emesis or diarrhea; Continue oral care FEN: adq oral intake of fluids and calories Pain syndrome- convert oral pain meds to IV [employer] Other: US of LUE--> basilic superficial vein thrombosis Treat with heat and elevation Yung Zhao MD [id number] [id number] [facility] Mailcode: [id number] [place], [place] [id number] Yung Rodas MD - 06/06/2015 2:03 PM PST BMT/Leukemia Service Attending Progress Note [facility] Khurram Kelly is a 24 y.o. 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 Feels that he is having pain that limits eating. also with left sinus tenderness. No fevers or rigors still. Decreased swelling LUE ROS: remainder is negative PFSH: significant for at bedside Exam: Last Vitals: BP 121/54 | Pulse 69 | Temp 37 C (98.6 F) | RR 18 | Ht 1.9 m (6' 2.8") | W t 86.365 kg (190 lb 6.4 oz) | SpO2 97% | BMI 23.92 kg/(m^2) 24 hour Vitals min/max : Systolic (24hrs), Av mmHg, Min:107 mmHg, Max:141 mmHg Diastolic (24hrs), Av mmHg, Min:50 mmHg, Max:69 mmHg Intake/Output Summary (Last 24 hours) at 06/06/15 1405 Last data filed at 06/06/15 1047 Gross per 24 hour Intake 4339 ml Output 3000 ml Net 1339 ml Temp (24hrs), Av.9 C (98.5 F), Min:36.8 C (98.2 F), Max:37.1 C (98.8 F) General: looks in discomfort. Heating pad on neck Skin: no rash and no catheter exit site tenderness; no further tenderness in Left axilla Eyes: normal, PERRLA and EOM's intact Mouth: normal mucosa and no oral lesions Sinus tenderness on palpation on left maxilla- decreased in intensity Neck: supple; no meningismus ? Left submandibular swelling Lymph: No palpable peripheral adenopathy Chest: Clear to auscultation Heart: RRR, no murmur, S1/S2 normal Abdomen: Soft and nontender without masses or hepatosplenomegaly Extrem: no pretibial/pedal edema Neuro: alert, oriented x 3, cranial nerves intact, motor/sens non-focal Pain Scale (0-10): 6 Lab/X-ray findings: CBC with diff last 72 hours (or 3 results) Recent Labs 06/03/15232406/05/15806/06/1539 WBC 1.04* 0.64* 0.52* HB 8.2* 7.5* 7.2* HCT 23.4* 21.5* 20.0* PLT 16* 8* 9* NEUTROPERC 20.9* 1.0* 4.3* LYMPHPERC 55.9* 74.0* 92.4* MONOPERC 19.8* 15.0* 3.3* BASOPERC 0.6 0.0 0.0 EOSPERC 0.0* 0.0* 0.0* Liver Tests: Last 72 hours (or 3 results) Recent Labs 06/03/15232406/05/15806/06/1539 AST 19 17 18 ALT 25 25 25 TBILI 0.5 0.6 0.8 AP 43* 43* 46* ALB 3.4* 3.3* 3.5 TP 6.1* 6.2* 6.6 Chemistries: Last 72 Hours (or 3 results): Recent Labs 06/03/15232406/05/15806/06/1539 NA 139 134* 135* K 4.1 3.9 4.1 CL 109* 104 104 BICARB 24 24 26 BUN 9 10 8 CR 0.84 0.86 0.78 GLU 103* 100* 97 CA 7.8* 7.8* 8.0* MG 2.1 1.9 2.1 PO4 2.4 2.7 3.0 Assessment/Plan: I certify that the history (as documented today) is reviewed, patient interviewed and pers onally examined by me. Heme: transfuse RBC and PPH; Now with neutropenia Day 14 bone marrow to be scheduled for 06/09/15 ID: afebrile, on Continues on prophylactic anti-infective agents.; neutropenic precautions On levofloxacin; should cover oral jie; If swelling increases, would add clinda sinus CT- no clear evidence of sinusitis GI: mucositis grade 0 FEN: adq oral intake of fluids and calories Other: US of LUE--> basilic superficial vein thrombosis Treat with heat and elevation Neck pain- continue analgesia and muscle relaxants Yung Zhao MD [id number] [id number] [facility] Mailcode: [id number] [place] [address] Yung Rodas MD - 06/05/2015 3:37 PM PST BMT/Leukemia Service Attending Progress Note [facility] Khurram Kelly is a 24 y.o. male Date: 06/05/2015 Day: 10 Principal Problem: Acute myeloid leukemia (AML), M4- Triple Negative- hi risk (HCC) Active Problems: Immunocompromised state (HCC) Electrolyte abnormality Chemotherapy induced nausea and vomiting Pancytopenia due to chemotherapy (HCC) Left arm superficial thrombosis Sinus pain Subjective: c/o ongoing stiff neck, discomfort with moving side to side; also with left sin us tenderness. No fevers or rigors. Also with swelling LUE ROS: remainder is negative PFSH: significant for supportive friends/family at bedside Exam: Last Vitals: BP 141/69 | Pulse 71 | Temp 36.9 C (98.4 F) | RR 16 | Ht 1.9 m (6' 2.8") | Wt 86.365 kg (190 lb 6.4 oz) | SpO2 100% | BMI 23.92 kg/(m^2) 24 hour Vitals min/max : Systolic (24hrs), Av mmHg, Min:105 mmHg, Max:141 mmHg Diastolic (24hrs), Av mmHg, Min:45 mmHg, Max:69 mmHg Pulse Min: 55 Max: 88 Temp Min: 36.8 C (98.2 F) Max: 37.3 C (99.1 F) Resp Min: 16 Max: 16 SpO2 Min: 98 % Max: 100 % Intake/Output Summary (Last 24 hours) at 06/05/15 1538 Last data filed at 06/05/15 1511 Gross per 24 hour Intake 3309 ml Output 4805 ml Net -1496 ml General: looks ill Skin: no rash and no catheter exit site tenderness; has tenderness in Left axilla Eyes: normal, PERRLA and EOM's intact Mouth: normal mucosa and no oral lesions Sinus tenderness on palpation on left maxilla Neck: supple; no meningismus Lymph: No palpable peripheral adenopathy Chest: Clear to auscultation Heart: RRR, no murmur, S1/S2 normal Abdomen: Soft and nontender without masses or hepatosplenomegaly Extrem: no pretibial/pedal edema Neuro: alert, oriented x 3, cranial nerves intact, motor/sens non-focal Pain Scale (0-10): 4 Lab/X-ray findings: CBC with diff last 72 hours (or 3 results) Recent Labs 06/02/15234406/03/15232406/05/15 0009 WBC 1.20* 1.04* 0.64* HB 8.2* 8.2* 7.5* HCT 23.1* 23.4* 21.5* PLT 24* 16* 8* NEUTROPERC 11.5* 20.9* 1.0* LYMPHPERC 57.5* 55.9* 74.0* MONOPERC 23.9* 19.8* 15.0* BASOPERC 0.0 0.6 0.0 EOSPERC 1.8 0.0* 0.0* Liver Tests: Last 72 hours (or 3 results) Recent Labs 06/02/15234406/03/15232406/05/15 0009 AST 17 19 17 ALT 25 25 25 TBILI 0.4 0.5 0.6 AP 41* 43* 43* ALB 3.2* 3.4* 3.3* TP 5.9* 6.1* 6.2* Chemistries: Last 72 Hours (or 3 results): Recent Labs 06/02/15234406/03/15232406/05/15 0009 NA 139 139 134* K 4.1 4.1 3.9 CL 110* 109* 104 BICARB 25 24 24 BUN 8 9 10 CR 0.77 0.84 0.86 GLU 100* 103* 100* CA 7.9* 7.8* 7.8* MG 2.1 2.1 1.9 PO4 3.2 2.4 2.7 Assessment/Plan: I certify that the history (as documented today) is reviewed, patient interviewed and pers onally examined by me. Heme: transfuse and PPH; approaching neutropenia ID: afebrile, on Continues on prophylactic anti-infective agents. Will check sinus CT GI: mucositis grade 0 FEN: adq oral intake of fluids and calories Other: US of LUE--> basilic superficial vein thrombosis Treat with heat and elevation Yung Zhao MD [facility] [id number] [facility] Mailcode: [id number] [place] [address] Lamin Espinal MD,PhD - 06/04/2015 2:50 PM PSTHeme Malignancies/BMT I rounded today in conjunction with the Advanced Practice Provider I saw the patient, reviewed the history and relevant studies, and developed an assessment a nd plan. 24 M, new AML, admit for induction - finished chemo yesterday evening - nausea better - no fever - L cheek mildly sore but no visible lesion or swelling - wbc 1.0 AML - intermediate risk - cytogenetics 46XY - molecular: Neg CEBPA, NPM1, FLT3 - hla sent; 2 sibs (kia) - 3+7 start 05/27 - d1 BMBx due 06/10 ID - no fever to date - levoflox ppx - posaconazole ppx - acyclovir ppx FEN - adequate po intake N/V - schedule zofran Please see the ESTHELA documentation from today for details Principal Problem: Acute myeloid leukemia (AML), M4 (HCC) Active Problems: Immunocompromised state (HCC) Electrolyte abnormality Chemotherapy induced nausea and vomiting Pancytopenia due to chemotherapy (HCC) Lamin Funes MD PhD Lamin Espinal MD,PhD - 06/03/2015 2:32 PM PSTHeme Malignancies/BMT I rounded today in conjunction with the Advanced Practice Provider I saw the patient, reviewed the history and relevant studies, and developed an assessment a nd plan. 24 M, new AML, admit for induction - nausea better today - no fever - wbc 1.2 - finish chemo tonight - stop ivf after chemo AML - intermediate risk - cytogenetics 46XY - molecular: Neg CEBPA, NPM1, FLT3 - hla sent; 2 sibs (esequielpatopito) - 3+7 start 05/27 - d14 BMBx due 06/10 ID - no fever to date - standard prophylaxis FEN - adequate po intake Supportive - sched compazine + scop patch Please see the ESTHELA documentation from today for details Principal Problem: Acute myeloid leukemia (AML), M4 (HCC) Active Problems: Immunocompromised state (HCC) Electrolyte abnormality Chemotherapy induced nausea and vomiting Pancytopenia due to chemotherapy (HCC) Lamin Funes MD PhD Em Vinson PA- C - 06/03/2015 8:54 AM PST Daily NPP Note - Chemotherapy Admit [facility] Attending: Lamin Funes MD, PhD PCP: Pending Pcp ADDITION Date of Admission: 05/26/2015 Hematologic Malignancy: AML Reason for admission: Work-up and Induction Chemotherapy 24 Hour Events/Current Daily Plan: -AML: confirmed by [facility], reviewed outside path c/w Acute Myelomonocytic Leukemia in a 90 % cellular marrow, normal cytogenetics, genetrails PENDING. Currently day 8 of 3+7 induction . -Pancytopenic: from underlying disease process with 5.3% atypicals noted on differential. S tandard transfusion parameters. -Lytes: no evidence of TLS on chemistries. Standard electrolyte repletion parameters. No re placements required today. -Right sided mouth pain: Hx of root canal without filling. Mild right sided buccal edema. C hlorhexidine and magic mouth rinse PRN. Oxycodone PRN. -Possible Hx of Pericarditis: presented to OSH on severel visits to ED with CP, worse when sitting forward in high fowlers. Echo done at OSH x 2 both normal, no noted pericarditis or effusions. He received a course of colchicine. -CINV: Improved today. Continues scop patch, continues ATC compazine, and antiemetics PRN -Nutrition: took in 100% of 2 meals with 3.6 L of PO fluid intake documented yesterday. Subjective: Had worse nausea overnight and now better this morning, started scop patch over night. Right buccal mucosa dyeing machine back tender, but not worse. Objective: Last Vitals: BP 111/48 | Pulse 59 | Temp 36.8 C (98.2 F) | RR 16 | Ht 1.9 m (6' 2.8") | Wt 87.317 kg (192 lb 8 oz) | SpO2 98% | BMI 24.19 kg/(m^2) 24 Hour Vital Min/Max: Systolic (24hrs), Av mmHg, Min:111 mmHg, Max:131 mmHg Diastolic (24hrs), Av mmHg, Min:47 mmHg, Max:65 mmHg Pulse Min: 51 Max: 77 Temp Min: 36.6 C (97.9 F) Max: 36.9 C (98.4 F) Resp Min: 16 Max: 18 SpO2 Min: 98 % Max: 99 % Intake/Output Summary (Last 24 hours) at 06/03/15 0854 Last data filed at 06/03/15 0800 Gross per 24 hour Intake 7167 ml Output 6005 ml Net 1162 ml Physical Exam: General: This is a male in no acute distress. Laying down in bed. HEENT: PERRL. Sclerae anicteric. Mucosa pink and moist without erythema or exudate. Mild right buccal edema. Skin: No rash, lesions noted. Chest: Lungs clear to auscultation bilat. CV: RRR, no murmurs. Abdomen: S/NT/ND with NABS. No HSM appreciated. Extremities: Pulses strong and equal bilaterally. No c/c/e. NeuroPsych: Alert and oriented x 3. Grossly nonfocal exam. CVC: PICC line dressing dry and intact Laboratory Results: Recent Labs 05/31/15 2341 06/01/15233406/02/152344 NA 139 137 139 K 3.8 4.1 4.1 CL 111* 108 110* BICARB 23 22 25 BUN 10 12 8 CR 0.74 0.83 0.77 GLU 99 101* 100* CA 8.0* 7.8* 7.9* AST 19 18 17 ALT 31 30 25 AP 37* 44* 41* TBILI 0.4 0.5 0.4 TP 6.0* 6.2* 5.9* ALB 3.4* 3.4* 3.2* Recent Labs 05/31/15 2341 06/01/15 2335 06/02/152344 WBC 2.37* 2.08* 1.20* RBC 2.91* 2.96* 2.48* HB 9.6* 9.5* 8.2* HCT 27.1* 27.8* 23.1* PLT 61* 46* 24* NEUTROPERC 10.0* 11.0* 11.5* LYMPHPERC 26.8 41.5 57.5* MONOPERC 46.4* 39.0* 23.9* BASOPERC 0.6 0.9 0.0 EOSPERC 0.0* 0.0* 1.8 Meds: Reviewed on rounds, see current MAR for medication list SUMMARY OF PATIENT'S HOSPITALIZATION History of Present Illness: Khurram Kelly is 24 yo M with pmhx of pericarditis and new diagnosis of acute leukemia admitted for induction and management. Had been in usual state of [facility] [place] 03/13/15 (the night of his wedding) at which time he noted bilateral ankle pain and swellin g. This persisted and worsened intermittently, notably when hunting on 03/19/15. Then after w ork, couldn't walk well 2/2 pain and inevitably couldn't bear weight on his feet. Presented to the ED and was diagnosed with cellulitis of the RLE, given antibiotics. During evaluation patient also noted to have pancytopenia with subsequent white blood cell differential ident ifying a predominance of early appearing monocytes. On 04/18/15 began to have pleuritic anterior chest pains, low-grade fevers occasionally up to 101. Also had onset of swelling and erythema over his left ankle, seen in the [facility]'s emergency room on 04/19/15. CT angiogram negative for blood clot. CBC demonstrated whi te count 15,300 with 59% monocytes, 3% immature monocytes, hemoglobin 11.8, platelets 146,00 0. He was apparently treated with antibiotics, also colchicine and anti-inflammatory agents - for possible dx of pericarditis - with complete resolution of his symptoms. After he finished the antibiotics and other medicines, the symptoms came back, repeat trip to the emergency room on 04/26/15. Repeat CT angiogram was again negative for pulmonary embo carmen or other abnormality. CBC showed white count 14,300 with 48% monocytes, 4% immature mono cytes, hemoglobin 12.8, platelets 180,000. He was again treated with the anti-inflammatory r maye colchicine, no antibiotics, again with complete resolution of symptoms. Was referred to Oncology and at that time had pleuritic anterior chest pain, low-grade feve rs. CBC demonstrated white count 17,600 with 66% monocytes, hemoglobin 11.8, platelets 115,0 00, did have 3.5% basophils. Review of his peripheral smear by pathology revealed many immat ure monocytes but no overt blasts. 05/19/15 had bone marrow bx confirming AML (see below) as well as flow cytometry. Hospitalization History: Hematology: #AML Pertinent Diagnostics: -BM Bx done at OSH 05/19/15, slides reviewed by OHANA and c/w Acute Myelomonocytic Leukemia in a 90% cellular marrow. -Results: 86% of blast equivalents, comprised of myeloblasts, monoblasts and promonocytes. Concurrent flow cytometry detected 23% myeloid blasts and 60% immature monocytic cells suppo rting this diagnosis. -Cytogenetics: Normal male karyotype -GeneTrails: CEBPA , NPM1, FLT3 NEGATIVE -Peripheral blood flow 05/27/15: Acute Myelomonocytic Leukemia (47% blasts and 30% monocyte s) -Cytogenetics: normal male karyotype -GeneTrails: PENDING -Plan to send telomere length and chromosomal breakage when he recovers Treatment: -Chemotherapy regimen: standard induction with 3+7 started 05/27/15 -Idarubicin 12 mg/m2 daily x 3 days -Cytarabine 100 mg/m2 CI IV daily x 7 days. -Chemo Day: 8 Patient is a candidate for transplant based on Dx and prognostic feature PENDING. Reques t insurance approval for typing. HLA typing sent 05/27/15. He has two brothers for potentia l donors. #Neutropenia, Anemia, Thrombocytopenia: secondary to acute leukemia. Folate, B12 normal -Monitor CBC with differential daily #Supportive Care: Growth factor: Not indicated with this chemotherapy Labs: Continue to check CBC with diff daily Transfusion parameters: -Transfuse PRBCs for HCT <21% -Transfuse PPH for platelet count <10,000 or sooner PRN s/s bleeding. HEENT: #Right sided mouth pain: Hx of root canal without filling. Right sided buccal edema. -Chlorhexidine and magic mouth rinse PRN -Oxycodone PRN Cardiovascular: Prechemotherapy Echo results on 05/18: EF 60-65 %. Left ventricular diastol ic function is normal. #Poss Hx of Pericarditis: presented to OSH on severel visits to ED with CP, worse when sitt ing forward in high fowlers. Echo done at OSH x 2 both normal, no noted pericarditis or effu sions. He received a course of colchicine and is now asymptomatic. Pulmonary: #Current Smoker: Smoking cessation counseling offered -Nicotine gum PRN -Consider Nicotine patch is symptoms not controlled GI: #CINV: Improved on scheduled antiemetics -Compazine 5-10 mg q6hrs -scop patch -Antiemetics PRN /Renal: No acute issues Reproductive: #Sperm banking: completed 05/27/15 prior to chemotherapy Infectious Disease: #Screening Tests: Heb B/C - negative, HIV- negative #Prophylaxis: Bacterial: Levaquin -For first neutropenic fever, preciado cx, CXR, d/c Levofloxacin and begin Cefepime for empiric broadspectrum coverage. Fungal: Posaconazole, level ordered 06/08 Viral: Acyclovir PCP: Not indicated Fluid/Nutrition/Lytes: #Nutrition: Regular diet, No Kezia's yogurt or Kefir #Fluid: 1L NS PRN for PO intake <2L/day by 2200 #Lytes: -Continue to check chemistries daily -Replace per supportive care protocol. Disposition: Anticipate 3-4 admission for induction chemotherapy. Em Saunders PA-C [address] [facility] Mailcode: [id number] [place] [address] Lamin Espinal MD,Ph D - 06/02/2015 5:44 PM PSTHeme Malignancies/BMT I rounded today in conjunction with the Advanced Practice Provider I saw the patient, reviewed the history and relevant studies, and developed an assessment a nd plan. 24 M, new AML, admit for induction - moderate nausea - no fever - wbc 2.0 - start last AraC tonight AML - intermediate risk - cytogenetics 46XY - molecular: Neg CEBPA, NPM1, FLT3 - hla sent; 2 sibs (mireya/rayna) - 3+7 start 05/27 - d14 BMBx due 06/10 ID - no fever to date - standard prophylaxis FEN - IVF with chemo - no tumor lysis Supportive - sched compazine Please see the ESTHELA documentation from today for details Principal Problem: Acute myeloid leukemia (AML), M4 (HCC) Active Problems: Immunocompromised state (HCC) Electrolyte abnormality Chemotherapy induced nausea and vomiting Pancytopenia due to chemotherapy (HCC) Lamin Funes MD PhD Migel Robyn M, SHOW OPERATIONS SUPERVISOR - 06/02/2015 10:38 AM PST Daily NPP Note - Chemotherapy Admit [facility] Attending: Lamin Funes MD, PhD PCP: Pending Pcp ADDITION Date of Admission: 05/26/2015 Hematologic Malignancy: AML Reason for admission: Work-up and Induction Chemotherapy 24 Hour Events/Current Daily Plan: -AML: confirmed by [facility], reviewed outside path c/w Acute Myelomonocytic Leukemia in a 90 % cellular marrow, normal cytogenetics, genetrails PENDING. Currently day 7 of 3+7 induction . -Pancytopenic: from underlying disease process with 1.7% atypicals noted on differential. S tandard transfusion parameters. -Lytes: no evidence of TLS on chemistries. Standard electrolyte repletion parameters. No re placements required today. -Right sided mouth pain: Hx of root canal without filling. Right sided buccal edema. Chlorh exidine and magic mouth rinse PRN. Oxycodone PRN. -Possible Hx of Pericarditis: presented to OSH on severel visits to ED with CP, worse when sitting forward in high fowlers. Echo done at OSH x 2 both normal, no noted pericarditis or effusions. He received a course of colchicine. -CINV: Improved on ATC compazine, antiemetics PRN -Nutrition: took in 100% of meals with 3.8L of PO fluid intake documented yesterday. Subjective: Having increased pain on the right side of his cheek this morning. Relieved wit h pain medication. Objective: Last Vitals: BP 106/55 | Pulse 84 | Temp 36.9 C (98.4 F) | RR 16 | Ht 1.9 m (6' 2.8") | Wt 86.183 kg (190 lb) | SpO2 97% | BMI 23.87 kg/(m^2) 24 Hour Vital Min/Max: Systolic (24hrs), Av mmHg, Min:106 mmHg, Max:133 mmHg Diastolic (24hrs), Av mmHg, Min:52 mmHg, Max:58 mmHg Pulse Min: 58 Max: 84 Temp Min: 36.9 C (98.4 F) Max: 37.5 C (99.5 F) Resp Min: 16 Max: 16 SpO2 Min: 97 % Max: 100 % Intake/Output Summary (Last 24 hours) at 06/02/15 1038 Last data filed at 06/02/15 1000 Gross per 24 hour Intake 6266 ml Output 4356 ml Net 1910 ml Physical Exam: General: This is a male in no acute distress. Resting in bed. HEENT: PERRL. Sclerae anicteric. Mucosa pink and moist without erythema or exudate. Mild right buccal edema. Skin: No rash, lesions noted. Chest: Lungs clear to auscultation bilat. CV: RRR, no murmurs. Abdomen: S/NT/ND with NABS. No HSM appreciated. Extremities: Pulses strong and equal bilaterally. No c/c/e. NeuroPsych: Alert and oriented x 3. Grossly nonfocal exam. CVC: PICC line dressing dry and intact Laboratory Results: Recent Labs 05/31/15 0027 05/31/15 2341 06/01/15 2335 NA 141 139 137 K 3.5 3.8 4.1 CL 112* 111* 108 BICARB 22 23 22 BUN 12 10 12 CR 0.74 0.74 0.83 GLU 105* 99 101* CA 7.7* 8.0* 7.8* AST 15 19 18 ALT 29 31 30 AP 38* 37* 44* TBILI 0.3 0.4 0.5 TP 5.6* 6.0* 6.2* ALB 3.1* 3.4* 3.4* Recent Labs 05/31/15 0027 05/31/15 2341 06/01/15 2335 WBC 4.53 2.37* 2.08* RBC 2.91* 2.91* 2.96* HB 9.3* 9.6* 9.5* HCT 27.9* 27.1* 27.8* PLT 64* 61* 46* NEUTROPERC 11.5* 10.0* 11.0* LYMPHPERC 36.3 26.8 41.5 MONOPERC 36.3* 46.4* 39.0* BASOPERC 0.0 0.6 0.9 EOSPERC 0.0* 0.0* 0.0* Meds: Reviewed on rounds, see current MAR for medication list SUMMARY OF PATIENT'S HOSPITALIZATION History of Present Illness: Khurram Kelly is 24 yo M with pmhx of pericarditis and new diagnosis of acute leukemia admitted for induction and management. Had been in usual state of [facility] 03/13/15 (the night of his wedding) at which time he noted bilateral ankle pain and swellin g. This persisted and worsened intermittently, notably when hunting on 03/19/15. Then after w ork, couldn't walk well 2/2 pain and inevitably couldn't bear weight on his feet. Presented to the ED and was diagnosed with cellulitis of the RLE, given antibiotics. During evaluation patient also noted to have pancytopenia with subsequent white blood cell differential ident ifying a predominance of early appearing monocytes. On 04/18/15 began to have pleuritic anterior chest pains, low-grade fevers occasionally up to 101. Also had onset of swelling and erythema over his left ankle, seen in the [facility]'s emergency room on 04/19/15. CT angiogram negative for blood clot. CBC demonstrated whi te count 15,300 with 59% monocytes, 3% immature monocytes, hemoglobin 11.8, platelets 146,00 0. He was apparently treated with antibiotics, also colchicine and anti-inflammatory agents - for possible dx of pericarditis - with complete resolution of his symptoms. After he finished the antibiotics and other medicines, the symptoms came back, repeat trip to the emergency room on 04/26/15. Repeat CT angiogram was again negative for pulmonary embo carmen or other abnormality. CBC showed white count 14,300 with 48% monocytes, 4% immature mono cytes, hemoglobin 12.8, platelets 180,000. He was again treated with the anti-inflammatory r maye colchicine, no antibiotics, again with complete resolution of symptoms. Was referred to Oncology and at that time had pleuritic anterior chest pain, low-grade feve rs. CBC demonstrated white count 17,600 with 66% monocytes, hemoglobin 11.8, platelets 115,0 00, did have 3.5% basophils. Review of his peripheral smear by pathology revealed many immat ure monocytes but no overt blasts. 05/19/15 had bone marrow bx confirming AML (see below) as well as flow cytometry. 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 -Results: 86% of blast equivalents, comprised of myeloblasts, monoblasts and promonocytes. Concurrent flow cytometry detected 23% myeloid blasts and 60% immature monocytic cells suppo rting this diagnosis. -Cytogenetics: Normal male karyotype -GeneTrails: CEBPA , NPM1, FLT3 NEGATIVE -Peripheral blood flow 05/27/15: Acute Myelomonocytic Leukemia (47% blasts and 30% monocyte s) -Cytogenetics: normal male karyotype -GeneTrails: PENDING -Plan to send telomere length and chromosomal breakage when he recovers Treatment: -Chemotherapy regimen: standard induction with 3+7 started 05/27/15 -Idarubicin 12 mg/m2 daily x 3 days -Cytarabine 100 mg/m2 CI IV daily x 7 days. -Chemo Day: 7 Patient is a candidate for transplant based on Dx and prognostic feature PENDING. Reques t insurance approval for typing. HLA typing sent 05/27/15. He has two brothers for potentia l donors. #Neutropenia, Anemia, Thrombocytopenia: secondary to acute leukemia. Folate, B12 normal -Monitor CBC with differential daily #Supportive Care: Growth factor: Not indicated with this chemotherapy Labs: Continue to check CBC with diff daily Transfusion parameters: -Transfuse PRBCs for HCT <21% -Transfuse PPH for platelet count <10,000 or sooner PRN s/s bleeding. HEENT: #Right sided mouth pain: Hx of root canal without filling. Right sided buccal edema. -Chlorhexidine and magic mouth rinse PRN -Oxycodone PRN Cardiovascular: Prechemotherapy Echo results on 05/18: EF 60-65 %. Left ventricular diastol ic function is normal. #Poss Hx of Pericarditis: presented to OSH on severel visits to ED with CP, worse when sitt ing forward in high fowlers. Echo done at OSH x 2 both normal, no noted pericarditis or effu sions. He received a course of colchicine and is now asymptomatic. Pulmonary: #Current Smoker: Smoking cessation counseling offered -Nicotine gum PRN -Consider Nicotine patch is symptoms not controlled GI: #CINV: Improved on scheduled antiemetics -Compazine 5-10 mg q6hrs -Antiemetics PRN /Renal: No acute issues Reproductive: #Sperm banking: completed 05/27/15 prior to chemotherapy Infectious Disease: #Screening Tests: Heb B/C - negative, HIV- negative #Prophylaxis: Bacterial: Levaquin -For first neutropenic fever, preciado cx, CXR, d/c Levofloxacin and begin Cefepime for empiric broadspectrum coverage. Fungal: Posaconazole, level ordered 06/08 Viral: Acyclovir PCP: Not indicated Fluid/Nutrition/Lytes: #Nutrition: Regular diet, No Kezia's yogurt or Kefir #Fluid: NS at 100 mL/hr #Lytes: -Continue to check chemistries daily -Replace per supportive care protocol. Disposition: Anticipate 3-4 admission for induction chemotherapy. REBECCA Pérez NP [id number] [facility] Mailcode: [id number] [place] [address] MYChenLamin MD, PhD - 06/01/2015 3:58 PM PSTHeme Malignancies/BMT I rounded today in conjunction with the Advanced Practice Provider I saw the patient, reviewed the history and relevant studies, and developed an assessment a nd plan. 24 M, new AML, admit for induction - tolerating chemo - mild nausea - no fever - wbc 2.3 - continue infusional AraC d6 of 7 AML - intermediate risk - cytogenetics 46XY - molecular: Neg CEBPA, NPM1, FLT3 - 3+7 start 05/27- - d14 BMBx due 06/10 ID - no fever to date - standard prophylaxis FEN - IVF with chemo - no tumor lysis Supportive - antiemetics per protocol Please see the ESTHELA documentation from today for details Principal Problem: Acute myeloid leukemia (AML), M4 (HCC) Active Problems: Immunocompromised state (HCC) Electrolyte abnormality Chemotherapy induced nausea and vomiting Lamin Funes MD PhD echandlerRobyn aguayo David, SHOW OPERATIONS SUPERVISOR - 06/01/2015 12:18 PM PST Daily NPP Note - [facility]otherapy [facility] Attending: Lamin Funes MD, PhD PCP: Pending Pcp ADDITION Date of Admission: 05/26/2015 Hematologic Malignancy: AML Reason for admission: Work-up and Induction Chemotherapy 24 Hour Events/Current Daily Plan: -AML: confirmed by PB sent 05/27. Cytogenetics, genetrails PENDING. BM Bx 05/19 from OSH, r eviewed by [facility] and c/w Acute Myelomonocytic Leukemia in a 90% cellular marrow. Currently da y 6 of 3+7 induction. -Neutropenia/Anemia/Thrombocytopenia: from underlying disease process with 11.7% atypicals noted on differential. Standard transfusion parameters. -Lytes: no evidence of TLS on chemistries. Standard electrolyte repletion parameters. No re placements required today. -Possible Hx of Pericarditis: presented to OSH on severel visits to ED with CP, worse when sitting forward in high fowlers. Echo done at OSH x 2 both normal, no noted pericarditis or effusions. He received a course of colchicine. -CINV: Improved on ATC compazine, antiemetics PRN -Nutrition: took in 100% of meals with 2.2L of PO fluid intake documented yesterday. Subjective: Feeling overall well, got a good night sleep and the nausea has subsided. Objective: Last Vitals: BP 123/55 | Pulse 72 | Temp 37 C (98.6 F) | RR 16 | Ht 1.9 m (6' 2.8") | W t 87.499 kg (192 lb 14.4 oz) | SpO2 98% | BMI 24.24 kg/(m^2) 24 Hour Vital Min/Max: Systolic (24hrs), Av mmHg, Min:109 mmHg, Max:124 mmHg Diastolic (24hrs), Av mmHg, Min:54 mmHg, Max:60 mmHg Pulse Min: 57 Max: 75 Temp Min: 36.7 C (98.1 F) Max: 37.1 C (98.8 F) Resp Min: 14 Max: 16 SpO2 Min: 97 % Max: 99 % Intake/Output Summary (Last 24 hours) at 06/01/15 1218 Last data filed at 06/01/15 1028 Gross per 24 hour Intake 4714 ml Output 6906 ml Net -2192 ml Physical Exam: General: This is a male in no acute distress. Sitting in bed. HEENT: PERRL. Sclerae anicteric. Mucosa pink and moist without erythema or exudate. Skin: No rash, lesions noted. Chest: Lungs clear to auscultation bilat. CV: RRR, no murmurs. Abdomen: S/NT/ND with NABS. No HSM appreciated. Extremities: Pulses strong and equal bilaterally. No c/c/e. NeuroPsych: Alert and oriented x 3. Grossly nonfocal exam. CVC: PICC line dressing dry and intact Laboratory Results: Recent Labs 05/29/15230905/31/157 05/31/15 2341 NA 142 141 139 K 4.0 3.5 3.8 CL 111* 112* 111* BICARB 24 22 23 BUN 13 12 10 CR 0.90 0.74 0.74 GLU 135* 105* 99 CA 8.4* 7.7* 8.0* AST 18 15 19 ALT 30 29 31 AP 42* 38* 37* TBILI 0.3 0.3 0.4 TP 6.5 5.6* 6.0* ALB 3.5 3.1* 3.4* Recent Labs 05/29/15230905/31/157 05/31/15 2341 WBC 9.27 4.53 2.37* RBC 3.07* 2.91* 2.91* HB 10.0* 9.3* 9.6* HCT 29.1* 27.9* 27.1* PLT 64* 64* 61* NEUTROPERC 19.8* 11.5* 10.0* LYMPHPERC 23.3 36.3 26.8 MONOPERC 31.9* 36.3* 46.4* BASOPERC 0.0 0.0 0.6 EOSPERC 0.0* 0.0* 0.0* Meds: Reviewed on rounds, see current MAR for medication list SUMMARY OF PATIENT'S HOSPITALIZATION History of Present Illness: Khurram Kelly is 24 yo M with pmhx of pericarditis and new diagnosis of acute leukemia admitted for induction and management. Had been in usual state of [facility] 03/13/15 (the night of his wedding) at which time he noted bilateral ankle pain and swellin g. This persisted and worsened intermittently, notably when hunting on 03/19/15. Then after w ork, couldn't walk well 2/2 pain and inevitably couldn't bear weight on his feet. Presented to the ED and was diagnosed with cellulitis of the RLE, given antibiotics. During evaluation patient also noted to have pancytopenia with subsequent white blood cell differential ident ifying a predominance of early appearing monocytes. On 04/18/15 began to have pleuritic anterior chest pains, low-grade fevers occasionally up to 101. Also had onset of swelling and erythema over his left ankle, seen in the [facility]' emergency room on 04/19/15. CT angiogram negative for blood clot. CBC demonstrated whi te count 15,300 with 59% monocytes, 3% immature monocytes, hemoglobin 11.8, platelets 146,00 0. He was apparently treated with antibiotics, also colchicine and anti-inflammatory agents - for possible dx of pericarditis - with complete resolution of his symptoms. After he finished the antibiotics and other medicines, the symptoms came back, repeat trip to the emergency room on 04/26/15. Repeat CT angiogram was again negative for pulmonary embo carmen or other abnormality. CBC showed white count 14,300 with 48% monocytes, 4% immature mono cytes, hemoglobin 12.8, platelets 180,000. He was again treated with the anti-inflammatory r maye colchicine, no antibiotics, again with complete resolution of symptoms. Was referred to Oncology and at that time had pleuritic anterior chest pain, low-grade feve rs. CBC demonstrated white count 17,600 with 66% monocytes, hemoglobin 11.8, platelets 115,0 00, did have 3.5% basophils. Review of his peripheral smear by pathology revealed many immat ure monocytes but no overt blasts. 05/19/15 had bone marrow bx confirming AML (see below) as well as flow cytometry. 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 -Results: 86% of blast equivalents, comprised of myeloblasts, monoblasts and promonocytes. Concurrent flow cytometry detected 23% myeloid blasts and 60% immature monocytic cells suppo rting this diagnosis. -Cytogenetics: Normal male karyotype -GeneTrails: CEBPA , NPM1, FLT3 NEGATIVE -Peripheral blood flow 05/27/15: Acute Myelomonocytic Leukemia (47% blasts and 30% monocyte s) -Cytogenetics: PENDING -GeneTrails: PENDING -Plan to send telomere length and chromosomal breakage when he recovers Treatment: -Chemotherapy regimen: standard induction with 3+7 started 05/27/15 -Idarubicin 12 mg/m2 daily x 3 days -Cytarabine 100 mg/m2 CI IV daily x 7 days. -Chemo Day: 6 Patient is a candidate for transplant based on Dx and prognostic feature PENDING. Reques t insurance approval for typing. HLA typing sent 05/27/15. He has two brothers for potentia l donors. #Neutropenia, Anemia, Thrombocytopenia: secondary to acute leukemia. Folate=12.9 and B12=36 6 (both normal range) -Monitor CBC with differential daily #Supportive Care: Growth factor: Not indicated with this chemotherapy Labs: Continue to check CBC with diff daily Transfusion parameters: -Transfuse PRBCs for HCT <21% -Transfuse PPH for platelet count <10,000 or sooner PRN s/s bleeding. Cardiovascular: Prechemotherapy Echo results on 05/18: EF 60-65 %. Left ventricular diastol ic function is normal. #Poss Hx of Pericarditis: presented to OSH on severel visits to ED with CP, worse when sitt ing forward in high fowlers. Echo done at OSH x 2 both normal, no noted pericarditis or effu sions. He received a course of colchicine and is now asymptomatic. Pulmonary: #Current Smoker: Smoking cessation counseling offered -Nicotine gum PRN -Consider Nicotine patch is symptoms not controlled GI: #CINV: Improved on scheduled antiemetics -Compazine 5-10 mg q6hrs -Antiemetics PRN /Renal: No acute issues Reproductive: #Sperm banking: completed 05/27/15 prior to chemotherapy Infectious Disease: #Screening Tests: Heb B/C - negative, HIV- negative #Prophylaxis: Bacterial: Levaquin -For first neutropenic fever, preciado cx, CXR, d/c Levofloxacin and begin Cefepime for empiric broadspectrum coverage. Fungal: Posaconazole, level ordered 06/08 Viral: Acyclovir PCP: Not indicated Fluid/Nutrition/Lytes: #Nutrition: Regular diet, No Kezia's yogurt or Kefir #Fluid: NS at 100 mL/hr #Lytes: -Continue to check chemistries daily -Replace per supportive care protocol. Disposition: Anticipate 3-4 admission for induction chemotherapy. REBECCA Pérez NP [facility] [address] [facility] Mailcode: [id number] [place] [address] Lamin Espinal MD, PhD - 05/31/2015 6:20 PM PSTHeme Malignancies/BMT I rounded today in conjunction with the Advanced Practice Provider I saw the patient, reviewed the history and relevant studies, and developed an assessment a nd plan. 24 M, new AML, admit for induction - tolerating chemo - nausea controlled - no fever - wbc 4.5 - continue infusional AraC d5 of 7 AML - intermediate risk - cytogenetics 46XY - molecular: Neg CEBPA, NPM1, FLT3 - 3+7 start 05/27- - d14 BMBx due 06/10 ID - no fever to date - standard prophylaxis FEN - IVF with chemo - no tumor lysis Supportive - antiemetics per protocol Please see the ESTHELA documentation from today for details Principal Problem: Acute myeloid leukemia (AML), M4 (HCC) Active Problems: Immunocompromised state (HCC) Electrolyte abnormality Chemotherapy induced nausea and vomiting Lamin Funes MD PhD obyn Contreras NP - 05/31/2015 2:19 PM PST Daily NPP Note - Chemotherapy [facility] Attending: Yari Garcia PCP: Pending Pcp ADDITION Date of Admission: 05/26/2015 Hematologic Malignancy: AML Reason for admission: Work-up and Induction Chemotherapy 24 Hour Events/Current Daily Plan: -AML: confirmed by PB sent 05/27. Cytogenetics, genetrails PENDING. BM Bx from OSH PENDING heme path review at [facility]. Currently day 5 of 3+7 induction. -Leukocytosis/Anemia/Thrombocytopenia: from underlying disease process with 15% atypicals n oted on differential. Standard transfusion parameters. -Lytes: no evidence of TLS on chemistries. Standard electrolyte repletion parameters. No re placements required today. -Possible Hx of Pericarditis: presented to OSH on severel visits to ED with CP, worse when sitting forward in high fowlers. Echo done at OSH x 2 both normal, no noted pericarditis or effusions. He received a course of colchicine. -CINV: Improved on ATC compazine, antiemetics PRN -Nutrition: took in 100% of meals with 4.5L of PO fluid intake documented yesterday. Subjective: No new symptoms overnight. Feeling overall well. Objective: Last Vitals: BP 117/55 | Pulse 63 | Temp 36.9 C (98.4 F) | RR 14 | Ht 1.9 m (6' 2.8") | Wt 87.499 kg (192 lb 14.4 oz) | SpO2 99% | BMI 24.24 kg/(m^2) 24 Hour Vital Min/Max: Systolic (24hrs), Av mmHg, Min:106 mmHg, Max:134 mmHg Diastolic (24hrs), Av mmHg, Min:46 mmHg, Max:63 mmHg Pulse Min: 50 Max: 67 Temp Min: 36.6 C (97.9 F) Max: 37.1 C (98.8 F) Resp Min: 14 Max: 16 SpO2 Min: 98 % Max: 99 % Intake/Output Summary (Last 24 hours) at 05/31/15 1419 Last data filed at 05/31/15 1300 Gross per 24 hour Intake 7623 ml Output 6156 ml Net 1467 ml Physical Exam: General: This is a male in no acute distress. Sitting up in bed. HEENT: PERRL. Sclerae anicteric. Mucosa pink and moist without erythema or exudate. Skin: No rash, lesions noted. Chest: Lungs clear to auscultation bilat. CV: RRR, no murmurs. Abdomen: S/NT/ND with NABS. No HSM appreciated. Extremities: Pulses strong and equal bilaterally. No c/c/e. NeuroPsych: Alert and oriented x 3. Grossly nonfocal exam. CVC: PICC line dressing dry and intact Laboratory Results: Recent Labs 05/29/15 0030 05/29/15 0729 05/29/150 05/31/15 0027 NA 144 142 142 141 K 4.3 3.9 4.0 3.5 CL 114* 112* 111* 112* BICARB 23 24 24 22 BUN 9 9 13 12 CR 0.81 0.84 0.90 0.74 GLU 130* 110* 135* 105* CA 8.2* 8.2* 8.4* 7.7* AST 19 -- 18 15 ALT 36 -- 30 29 AP 45* -- 42* 38* TBILI 0.2* -- 0.3 0.3 TP 6.6 -- 6.5 5.6* ALB 3.6 -- 3.5 3.1* Recent Labs 05/29/15 0030 05/29/150 05/31/15 0027 WBC 16.24* 9.27 4.53 RBC 3.24* 3.07* 2.91* HB 10.6* 10.0* 9.3* HCT 30.5* 29.1* 27.9* PLT 80* 64* 64* NEUTROPERC 12.1* 19.8* 11.5* LYMPHPERC 15.5* 23.3 36.3 MONOPERC 31.0* 31.9* 36.3* BASOPERC 0.0 0.0 0.0 EOSPERC 0.0* 0.0* 0.0* Meds: Reviewed on rounds, see current MAR for medication list SUMMARY OF PATIENT'S HOSPITALIZATION History of Present Illness: Khurram Kelly is 24 yo M with pmhx of pericarditis and new diagnosis of acute leukemia admitted for induction and management. Had been in usual state of [facility] 03/13/15 (the night of his wedding) at which time he noted bilateral ankle pain and swellin g. This persisted and worsened intermittently, notably when hunting on 03/19/15. Then after w ork, couldn't walk well 2/2 pain and inevitably couldn't bear weight on his feet. Presented to the ED and was diagnosed with cellulitis of the RLE, given antibiotics. During evaluation patient also noted to have pancytopenia with subsequent white blood cell differential ident ifying a predominance of early appearing monocytes. On 04/18/15 began to have pleuritic anterior chest pains, low-grade fevers occasionally up to 101. Also had onset of swelling and erythema over his left ankle, seen in the [facility]' emergency room on 04/19/15. CT angiogram negative for blood clot. CBC demonstrated whi te count 15,300 with 59% monocytes, 3% immature monocytes, hemoglobin 11.8, platelets 146,00 0. He was apparently treated with antibiotics, also colchicine and anti-inflammatory agents - for possible dx of pericarditis - with complete resolution of his symptoms. After he finished the antibiotics and other medicines, the symptoms came back, repeat trip to the emergency room on 04/26/15. Repeat CT angiogram was again negative for pulmonary embo carmen or other abnormality. CBC showed white count 14,300 with 48% monocytes, 4% immature mono cytes, hemoglobin 12.8, platelets 180,000. He was again treated with the anti-inflammatory r maye colchicine, no antibiotics, again with complete resolution of symptoms. Was referred to Oncology and at that time had pleuritic anterior chest pain, low-grade feve rs. CBC demonstrated white count 17,600 with 66% monocytes, hemoglobin 11.8, platelets 115,0 00, did have 3.5% basophils. Review of his peripheral smear by pathology revealed many immat ure monocytes but no overt blasts. 05/19/15 had bone marrow bx confirming AML (see below) as well as flow cytometry. Hospitalization History: Hematology: #AML Pertinent Diagnostics: -BM Bx done at OSH 05/19/15. Awaiting heme path review here at [facility] PENDING -Results: 86% of blast equivalents, comprised of myeloblasts, monoblasts and promonocytes. Concurrent flow cytometry detected 23% myeloid blasts and 60% immature monocytic cells suppo rting this diagnosis. -Cytogenetics: Normal male karyotype -GeneTrails: CEBPA , NPM1, FLT3 NEGATIVE -Peripheral blood flow 05/27/15: Acute Myelomonocytic Leukemia (47% blasts and 30% monocyte s) -Cytogenetics: PENDING -GeneTrails: PENDING -Plan to send telomere length and chromosomal breakage when he recovers Treatment: -Chemotherapy regimen: standard induction with 3+7 started 05/27/15 -Idarubicin 12 mg/m2 daily x 3 days -Cytarabine 100 mg/m2 CI IV daily x 7 days. -Chemo Day: 5 Patient is a candidate for transplant based on Dx and prognostic feature PENDING. Reques t insurance approval for typing. HLA typing sent 05/27/15. He has two brothers for potentia l donors. #Leukocytosis, Anemia, Thrombocytopenia: secondary to acute leukemia. Folate=12.9 and B12=3 66 (both normal range) -Monitor CBC with differential daily #Supportive Care: Growth factor: Not indicated with this chemotherapy Labs: Continue to check CBC with diff daily Transfusion parameters: -Transfuse PRBCs for HCT <21% -Transfuse PPH for platelet count <10,000 or sooner PRN s/s bleeding. Cardiovascular: Prechemotherapy Echo results on 05/18: EF 60-65 %. Left ventricular diastol ic function is normal. #Poss Hx of Pericarditis: presented to OSH on severel visits to ED with CP, worse when sitt ing forward in high fowlers. Echo done at OSH x 2 both normal, no noted pericarditis or effu sions. He received a course of colchicine and is now asymptomatic. Pulmonary: #Current Smoker: Smoking cessation counseling offered -Nicotine gum PRN -Consider Nicotine patch is symptoms not controlled GI: #CINV: Improved on scheduled antiemetics -Compazine 5-10 mg q6hrs -Antiemetics PRN /Renal: No acute issues Reproductive: #Sperm banking: completed 05/27/15 prior to chemotherapy Infectious Disease: #Screening Tests: Heb B/C - negative, HIV- negative #Prophylaxis: Bacterial: Levaquin -For first neutropenic fever, preciado cx, CXR, d/c Levofloxacin and begin Cefepime for empiric broadspectrum coverage. Fungal: Posaconazole, level ordered 06/08 Viral: Acyclovir PCP: Not indicated Fluid/Nutrition/Lytes: #Nutrition: Regular diet, No Kezia's yogurt or Kefir #Fluid: NS at 100 mL/hr #Lytes: -Continue to check chemistries daily -Replace per supportive care protocol. Disposition: Anticipate 3-4 admission for induction chemotherapy. REBECCA Pérez NP [facility] [address] [id number] [facility] Mailcode: [id number] [place] [address] amin Funes MD, PhD - 05/30/2015 5:26 PM PSTHeme Malignancies/BMT I rounded today in conjunction with the Advanced Practice Provider paras Parisi saw the patient, reviewed the history and relevant studies, and developed an assessment a nd plan. 24 M, new AML, admit for induction - tolerating chemo - feels relatively well - no fever - wbc 9.2 - finished Katrina last night - continue infusional AraC AML - intermediate risk - cytogenetics 46XY - molecular: Neg CEBPA, NPM1, FLT3 - 3+7 start 05/27- - d14 BMBx due 06/10 ID - no fever to date - standard bacterial, viral, fungal prophylaxis FEN - IVF with chemo - no tumor lysis Supportive - antiemetics per protocol Please see the [facility] documentation from today for details Principal Problem: Acute myeloid leukemia (AML), M4 (HCC) Active Problems: Immunocompromised state (HCC) Electrolyte abnormality Chemotherapy induced nausea and vomiting Lamin Funes MD PhD Wilian Laura FN P - 05/30/2015 2:37 PM PST Daily NPP Note - Chemotherapy [facility] Attending: Yari Garcia PCP: Pending Pcp ADDITION Date of Admission: 05/26/2015 Hematologic Malignancy: AML Reason for admission: Work-up and Induction Chemotherapy 24 Hour Events/Current Daily Plan: -AML: confirmed by PB sent 05/27. Cytogenetics, genetrails PENDING. BM Bx from OSH PENDING heme path review at [facility]. Currently day 4 of 3+7 induction. -Leukocytosis/Anemia/Thrombocytopenia: from underlying disease process with 25% atypicals n oted on differential. Standard transfusion parameters. There is no blood product support re quired at this time. -Lytes: no evidence of TLS on chemistries. Standard electrolyte repletion parameters. No re placements required today. -Possible Hx of Pericarditis: presented to OSH on severel visits to ED with CP, worse when sitting forward in high fowlers. Echo done at OSH x 2 both normal, no noted pericarditis or effusions. He received a course of colchicine. -CINV: Improved on ATC compazine, antiemetics PRN -Nutrition: took in 90-100% of meals x2 with 4.9L of PO fluid intake documented yesterday. Subjective: No chest pain. Denies nausea, vomiting, or diarrhea. Objective: Last Vitals: BP 126/58 | Pulse 57 | Temp 36.9 C (98.4 F) | RR 16 | Ht 1.9 m (6' 2.8") | Wt 87.499 kg (192 lb 14.4 oz) | SpO2 100% | BMI 24.24 kg/(m^2) 24 Hour Vital Min/Max: Systolic (24hrs), Av mmHg, Min:111 mmHg, Max:132 mmHg Diastolic (24hrs), Av mmHg, Min:46 mmHg, Max:58 mmHg Pulse Min: 57 Max: 65 Temp Min: 36.6 C (97.9 F) Max: 37 C (98.6 F) Resp Min: 16 Max: 18 SpO2 Min: 97 % Max: 100 % Intake/Output Summary (Last 24 hours) at 05/30/15 1437 Last data filed at 05/30/15 1137 Gross per 24 hour Intake 8043 ml Output 7380 ml Net 663 ml Physical Exam: General: This is a male in no acute distress. Sitting in bed. HEENT: PERRL. Sclerae anicteric. Mucosa pink and moist without erythema or exudate. Skin: No rash, lesions noted. Chest: Lungs clear to auscultation bilat. CV: RRR, no murmurs. Abdomen: S/NT/ND with NABS. No HSM appreciated. Extremities: Pulses strong and equal bilaterally. No c/c/e. NeuroPsych: Alert and oriented x 3. Grossly nonfocal exam. CVC: PICC line dressing dry and intact Laboratory Results: Recent Labs 05/27/15 2330 05/29/15 0030 05/29/15 0729 05/29/15 2310 NA 143 < > 144 142 142 K 4.4 < > 4.3 3.9 4.0 CL 111* < > 114* 112* 111* BICARB 25 < > 23 24 24 BUN 9 < > 9 9 13 CR 0.90 < > 0.81 0.84 0.90 GLU 114* < > 130* 110* 135* CA 8.4* < > 8.2* 8.2* 8.4* AST 25 -- 19 -- 18 ALT 41 -- 36 -- 30 AP 49* -- 45* -- 42* TBILI 0.2* -- 0.2* -- 0.3 TP 6.8 -- 6.6 -- 6.5 ALB 3.8 -- 3.6 -- 3.5 < > = values in this interval not displayed. Recent Labs 05/28/15 0620 05/29/15 0030 05/29/15 2310 WBC 15.84* 16.24* 9.27 RBC 3.45* 3.24* 3.07* HB 11.2* 10.6* 10.0* HCT 32.1* 30.5* 29.1* PLT 81* 80* 64* NEUTROPERC 12.2* 12.1* 19.8* LYMPHPERC 26.1 15.5* 23.3 MONOPERC 23.5* 31.0* 31.9* BASOPERC 0.0 0.0 0.0 EOSPERC 0.0* 0.0* 0.0* Meds: Reviewed on rounds, see current MAR for medication list SUMMARY OF PATIENT'S HOSPITALIZATION History of Present Illness: Khurram Kelly is 24 yo M with pmhx of pericarditis and new diagnosis of acute leukemia admitted for induction and management. Had been in usual state of [facility] 03/13/15 (the night of his wedding) at which time he noted bilateral ankle pain and swellin g. This persisted and worsened intermittently, notably when hunting on 03/19/15. Then after w ork, couldn't walk well 2/2 pain and inevitably couldn't bear weight on his feet. Presented to the ED and was diagnosed with cellulitis of the RLE, given antibiotics. During evaluation patient also noted to have pancytopenia with subsequent white blood cell differential ident ifying a predominance of early appearing monocytes. On 04/18/15 began to have pleuritic anterior chest pains, low-grade fevers occasionally up to 101. Also had onset of swelling and erythema over his left ankle, seen in the [facility]' emergency room on 04/19/15. CT angiogram negative for blood clot. CBC demonstrated whi te count 15,300 with 59% monocytes, 3% immature monocytes, hemoglobin 11.8, platelets 146,00 0. He was apparently treated with antibiotics, also colchicine and anti-inflammatory agents - for possible dx of pericarditis - with complete resolution of his symptoms. After he finished the antibiotics and other medicines, the symptoms came back, repeat trip to the emergency room on 04/26/15. Repeat CT angiogram was again negative for pulmonary embo carmen or other abnormality. CBC showed white count 14,300 with 48% monocytes, 4% immature mono cytes, hemoglobin 12.8, platelets 180,000. He was again treated with the anti-inflammatory r maye colchicine, no antibiotics, again with complete resolution of symptoms. Was referred to Oncology and at that time had pleuritic anterior chest pain, low-grade feve rs. CBC demonstrated white count 17,600 with 66% monocytes, hemoglobin 11.8, platelets 115,0 00, did have 3.5% basophils. Review of his peripheral smear by pathology revealed many immat ure monocytes but no overt blasts. 05/19/15 had bone marrow bx confirming AML (see below) as well as flow cytometry. Hospitalization History: Hematology: #AML Pertinent Diagnostics: -BM Bx done at OSH 05/19/15. Awaiting heme path review here at [facility] PENDING -Results: 86% of blast equivalents, comprised of myeloblasts, monoblasts and promonocytes. Concurrent flow cytometry detected 23% myeloid blasts and 60% immature monocytic cells suppo rting this diagnosis. -Cytogenetics: Normal male karyotype -GeneTrails: CEBPA , NPM1, FLT3 NEGATIVE -Peripheral blood flow 05/27/15: Acute Myelomonocytic Leukemia (47% blasts and 30% monocyte s) -Cytogenetics: PENDING -GeneTrails: PENDING -Plan to send telomere length and chromosomal breakage when he recovers Treatment: -Chemotherapy regimen: standard induction with 3+7 started 05/27/15 -Idarubicin 12 mg/m2 daily x 3 days -Cytarabine 100 mg/m2 CI IV daily x 7 days. -Chemo Day: 4 Patient is a candidate for transplant based on Dx and prognostic feature PENDING. Reques t insurance approval for typing. HLA typing sent 05/27/15. He has two brothers for potentia l donors. #Leukocytosis, Anemia, Thrombocytopenia: secondary to acute leukeumia -Monitor CBC with differential daily -Folate, B12 (05/27)- PENDING #Supportive Care: Growth factor: Not indicated with this chemotherapy Labs: Continue to check CBC with diff daily Transfusion parameters: -Transfuse PRBCs for HCT <21% -Transfuse PPH for platelet count <10,000 or sooner PRN s/s bleeding. Cardiovascular: Prechemotherapy Echo results on 05/18: EF 60-65 %. Left ventricular diastol ic function is normal. #Poss Hx of Pericarditis: presented to OSH on severel visits to ED with CP, worse when sitt ing forward in high fowlers. Echo done at OSH x 2 both normal, no noted pericarditis or effu sions. He received a course of colchicine and is now asymptomatic. Pulmonary: #Current Smoker: Smoking cessation counseling offered -Nicotine gum PRN -Consider Nicotine patch is symptoms not controlled GI: #CINV: Improved on scheduled antiemetics -Compazine 5-10 mg q6hrs -Antiemetics PRN /Renal: No acute issues Reproductive: #Sperm banking: completed 05/27/15 prior to chemotherapy Infectious Disease: #Screening Tests: Heb B/C - negative, HIV- negative #Prophylaxis: Bacterial: Levaquin -For first neutropenic fever, preciado cx, CXR, d/c Levofloxacin and begin Cefepime for empiric broadspectrum coverage. Fungal: Posaconazole upon completion of chemotherapy Viral: Acyclovir PCP: Not indicated Fluid/Nutrition/Lytes: #Nutrition: Regular diet, No Kezia's yogurt or Kefir #Fluid: NS at 150 mL/hr #Lytes: -Continue to check chemistries daily -Replace per supportive care protocol. Disposition: Anticipate 3-4 admission for induction chemotherapy. ORLY Arteaga [facility] [address] [facility] Mailcode: [id number] [place], [place] [id number] Lamin Espinal MD,Ph D - 05/29/2015 4:47 PM PSTHeme Malignancies/BMT I rounded today in conjunction with the Advanced Practice Provider priyanka Parisi saw the patient, reviewed the history and relevant studies, and developed an assessment a nd plan. 24 M, new AML, admit for induction - tolerating chemo - nausea improving - no fever - wbc 16 - no tumor lysis - continue d3 chemo - last dose Katrina tonight AML - intermediate risk - cytogenetics 46XY - molecular: Neg CEBPA, NPM1, FLT3 - 3+7 start 05/27- ID - no fever to date - standard bacterial, viral, fungal prophylaxis FEN - IVF with chemo - stop tumor lysis labs Supportive - antiemetics per protocol Please see the [facility] documentation from today for details Principal Problem: Acute myeloid leukemia (AML), M4 (HCC) Active Problems: Immunocompromised state (HCC) Electrolyte abnormality Chemotherapy induced nausea and vomiting Lamin Funes MD PhD atonya Reyes ANP - 05/29/2015 3:06 PM PST Daily NPP Note - Chemotherapy Ad[facility] Attending: Yari Garcia PCP: Pending Pcp ADDITION Date of Admission: 05/26/2015 Hematologic Malignancy: AML Reason for admission: Work-up and Induction Chemotherapy 24 Hour Events/Current Daily Plan: -AML: confirmed by PB sent 05/27. Cytogenetics, genetrails PENDING. BM Bx from OSH PENDING heme path review at [facility]. Started induction 3+7, Day 3. -Leukocytosis, anemia and thrombocytopenia: with 40% atypicals present. Standard transfusio ns. None today. -Possible HX Pericarditis: presented to OSH on severel visits to ED with CP, worse when sit ting forward in high fowlers. Echo done at OSH x 2 both normal, no noted pericarditis or eff usions. He received a course of colchicine and is now asymptomatic therefore dc'd this. -CINV: Improved. Continue compazine ATC and continue antiemetics PRN -Lytes; Standard repletions. None today. Subjective: Without new issues. Nausea improved today. Objective: Last Vitals: BP 132/54 | Pulse 65 | Temp 36.7 C (98.1 F) | RR 16 | Ht 1.9 m (6' 2.8") | Wt 84.2 kg (185 lb 10 oz) | SpO2 99% | BMI 23.32 kg/(m^2) 24 Hour Vital Min/Max: Systolic (24hrs), Av mmHg, Min:109 mmHg, Max:132 mmHg Diastolic (24hrs), Av mmHg, Min:49 mmHg, Max:67 mmHg Pulse Min: 59 Max: 81 Temp Min: 36.7 C (98.1 F) Max: 36.9 C (98.4 F) Resp Min: 16 Max: 18 SpO2 Min: 97 % Max: 99 % Intake/Output Summary (Last 24 hours) at 05/29/15 1506 Last data filed at 05/29/15 1328 Gross per 24 hour Intake 9982 ml Output 6405 ml Net 3577 ml Physical Exam: General: This is a male in no acute distress. Sitting in bed. HEENT: PERRL. Sclerae anicteric. Mucosa pink and moist without erythema or exudate. Skin: No rash, lesions noted. Chest: Lungs clear to auscultation bilat. CV: RRR, no murmurs. Abdomen: S/NT/ND with NABS. No HSM appreciated. Extremities: Pulses strong and equal bilaterally. No c/c/e. NeuroPsych: Alert and oriented x 3. Grossly nonfocal exam. CVC: PICC line dressing dry and intact Recent Labs 05/27/15 0516 05/27/15 2330 05/28/15 1554 05/29/15 0030 05/29/15 0729 NA 143 143 < > 142 144 142 K 4.1 4.4 < > 3.6 4.3 3.9 CL 109* 111* < > 110* 114* 112* BICARB 26 25 < > 25 23 24 BUN 14 9 < > 9 9 9 CR 0.95 0.90 < > 0.87 0.81 0.84 GLU 99 114* < > 133* 130* 110* CA 9.0 8.4* < > 8.3* 8.2* 8.2* AST 28 25 -- -- 19 -- ALT 37 41 -- -- 36 -- AP 48* 49* -- -- 45* -- TBILI 0.2* 0.2* -- -- 0.2* -- TP 7.1 6.8 -- -- 6.6 -- ALB 3.7 3.8 -- -- 3.6 -- < > = values in this interval not displayed. Recent Labs 05/27/15 0516 05/28/15 0620 05/29/15 0030 WBC 21.84* 15.84* 16.24* RBC 3.48* 3.45* 3.24* HB 11.3* 11.2* 10.6* HCT 32.3* 32.1* 30.5* PLT 102* 81* 80* NEUTROPERC 7.9* 12.2* 12.1* LYMPHPERC 23.9 26.1 15.5* MONOPERC 23.0* 23.5* 31.0* BASOPERC 0.0 0.0 0.0 EOSPERC 1.8 0.0* 0.0* Meds: Reviewed on rounds, see current MAR for medication list SUMMARY OF PATIENT'S HOSPITALIZATION History of Present Illness: 24 yo M with pmhx of pericarditis and new diagnosis of acute leukemia admitted for inducti on and management. Had been in usual state of [facility] until 03/13/15 (the night of his wedding) at which ti me he noted bilateral ankle pain and swelling. This persisted and worsened intermittently, n otably when hunting on 03/19/15. Then after work, couldn't walk well 2/2 pain and inevitably couldn't bear weight on his feet. Presented to the ED and was diagnosed with cellulitis of t he RLE, given antibiotics. During evaluation patient also noted to have pancytopenia with douglass bsequent white blood cell differential identifying a predominance of early appearing monocyt es. Then 04/18 began to have pleuritic anterior chest pains, low-grade fevers occasionally up to 101. Also had onset of swelling and erythema over his left ankle, seen in the [facility]'s emergency room on April 19, CT angiogram negative for blood clot. CBC demonstrated wh ite count 15,300 with 59% monocytes, 3% immature monocytes, hemoglobin 11.8, platelets 146,0 00. He was apparently treated with antibiotics, also colchicine and anti-inflammatory agents - for possible dx of pericarditis - with complete resolution of his symptoms. After he finished the antibiotics and other medicines, the symptoms came back, repeat the to the emergency room on April 26. Repeat CT angiogram was again negative for pulmonary em bolus or other abnormality. CBC showed white count 14,300 with 48% monocytes, 4% immature mo nocytes, hemoglobin 12.8, platelets 180,000. He was again treated with the anti-inflammatory reason colchicine, no antibiotics, again with complete resolution of symptoms. Was referred to Oncology and at ange time had pleuritic anterior chest pain, low-grade fever s. CBC demonstrated white count 17,600 with 66 percent monocytes, hemoglobin 11.8, platelets 115,000, did have 3.5% basophils. Review of his peripheral smear by pathology revealed many immature monocytes but no overt blasts. 05/19/15 had bone marrow bx confirming AML (see below) as well as flow cytometry. Since the n he has been doing realtively well. Still some anterior chest pain if he lies on his stomac h or back, but ok if sitting upright. No fevers, chills, bleeding, hematochezia. No gingival bleeding. Hospitalization History: Hematology: #AML Pertinent Diagnostics: -BM Bx done at OSH 05/19/15. Awaiting heme path review here at [facility] PENDING -Results:86% of blast equivalents, comprised of myeloblasts, monoblasts and promonocytes. Concurrent flow cytometry detected 23% myeloid blasts and 60% immature monocytic cells supp orting this diagnosis. -Cytogenetics: Normal male karyotype (awaiting peripheral cytogenetics sent 05/27 at [facility] ) -Genetrails: CEBPA , NPM1, FLT3 NEGATIVE (awaiting peripheral genetrails sent 05/27 at [facility]) -Peripheral blood flow (05/27) confirmed diagnosis of AML at [facility] with 47% blasts -Plan to send telomere length and chromosomal breakage when he recovers Treatment: -Chemotherapy regimen: standard induction with 3+7 Idarubicin 12 mg/m2 daily x 3 days Cytarabine 100 mg/m2 CI IV daily x 7 days. -Chemo Day: 3 Patient is a candidate for transplant based on Dx and prognostic feature PENDING. Reques t insurance approval for typing. HLA typing sent 05/27. He has two brothers for potential d onors. #Leukocytosis, Anemia, Thrombocytopenia: Secondary to acute leukeumia -Monitor CBC with differential daily -Folate, B12 (05/27)- PENDING #Supportive Care: Growth factor: Not indicated with this chemotherapy Labs: Continue to check CBC with diff daily Transfusion parameters: -Transfuse PRBCs for HCT <21% if asymptomatic -Transfuse PPH for platelet count <10,000 or sooner PRN s/s bleeding. Cardiovascular: #Prechemotherapy Echo results (05/18): EF 60-65 %. Left ventricular diastolic function is n ormal. Essentially a normal 2-D echo/M-mode/Doppler/color Doppler study. #Bradycardia- 05/27 EKG, normal sinus bradycardia #Possible HX Pericarditis: presented to OSH on severel visits to ED with CP, worse when sit ting forward in high fowlers. Echo done at OSH x 2 both normal, no noted pericarditis or eff usions. He received a course of colchicine and is now asymptomatic therefore dc'd this. 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 Fungal: Not indicated, consider posaconazole for prophy as pt is current marijuana user Viral: Acyclovir PCP: Not indicated Fluid/Nutrition/Lytes: #Nutrition: Regular diet, No Kezia's yogurt or Kefir #Fluid: NS at 125 mL/hr #Risk for TLS: Allopurinol, TLS labs Q8 were stable therefore stopped and MIVF #Lytes: -Continue to check chemistries daily -Replace per supportive care protocol. Disposition: Anticipate 3-4 admission for induction chemotherapy. RONALD Merrill ANP [facility] [address] [address] [facility] Mailcode: [id number] [place], [place] [id number] Oscar, Yari Jones MD - 05/28/2015 11:07 PM PST 05/28/2015 Hematologic Malignancies/Blood and marrow Transplant Attending Note I have reviewed and agree with the previously summarized HPI, PMH, FH, SH, and ROS as docum ented in the detailed note of [facility] provider Latonya Reyes. I also performed a history and physical examination of the patient myself and agree with th e documented findings and plan of care. Identification: Pt is a 24 year old male with a new diagnosis of AML, admitted for initiation of induction chemotherapy. Subjective: Emesis this morning with short antecedent nausea. Was able to complete adequate sperm cryo preservation. No other acute effects of chemotherapy. Objective: On exam, I note no acute findings, patient is in no distress, RRR, lungs are clear, abdomen is benign, and neuro is unremarkable. Line site with erythema or induration. Brief assessment/plan: The major issues that I am directly managing that require continued hospital admission incl ude: AML - outside marrow requested for review here, dx confirmed by flow cytometry. Outside FI SH negative for 15;17, cytogenetics are normal. Echo without findings. -induction chemotherapy with 7+3 -genetrails sent off peripheral blood given absence of marker to follow on cytogenetics, FI SH or outside FLT/NPM1/CEBPA (negative) -intermediate risk disease, so is a candidate for SCT, discussed in only limited amount, do es have 2 sibs, healthy -no family history/dysmorphic findings, will send urgent telomeres/fanconi to assess for pretty ne marrow failure syndrome though suspicion low -HLA typing sent Cytopenias -transfuse with leukocyte reduced irradiated blood products for platelets <10, hct <21% or symptomatic Immunocompromised host -acyclovir, levaquin, posaconazole FEN -replete electrolytes per protocol. Today, we will continue the current level of support. Please refer to the [facility]'s note dated today for additional details on the specific plan and orders for today. Yari Garcia MD, M.S. [facility] for Hematologic Malignancies Attending physician s total time is 35 minutes, >50% spent counseling and coordination of care. Today, as part of my counseling and coordination of care, I reviewed data, reviewed today's plan, and discussed anticipated side effects of chemotherapy. [facility] DEPARTMENT: [id number] - [facility] Place of Service: [id number] - Inpatient Date of Service: 05/28/2015 Modifiers: None Suggested CPT: 09071 - Subsequent, Detailed/High complex 35 min ######################################################### Vitals: Systolic (24hrs), Av mmHg, Min:109 mmHg, Max:128 mmHg Diastolic (24hrs), Av mmHg, Min:49 mmHg, Max:67 mmHg Pulse Av.8 Min: 60 Max: 81 Temp Av.7 C (98.1 F) Min: 36.4 C (97.5 F) Max: 36.9 C (98.4 F) Resp Av.3 Min: 16 Max: 18 SpO2 Av.7 % Min: 98 % Max: 99 % Intake/Output Summary (Last 24 hours) at 05/28/15 2307 Last data filed at 05/28/15 2100 Gross per 24 hour Intake 6850 ml Output 5030 ml Net 1820 ml Current medications: Scheduled Medications Medication Dose Route Frequency Last Rate acyclovir (ZOVIRAX) tablet 800 mg 800 mg oral DAILY allopurinol (ZYLOPRIM) tablet 300 mg 300 mg oral Q24H cytarabine (CYTOSAR) 210 mg in NaCl 0.9 % IV 210 mg intravenous Q24H 210 mg (05/28/15 2131) dexamethasone (DECADRON) tablet 8 mg 8 mg oral Q24H IDArubicin (IDAMYCIN) 25 mg in NaCl 0.9 % IV 25 mg intravenous Q24H 25 mg (05/28/15 21 31) levofloxacin (LEVAQUIN) tablet 500 mg 500 mg oral DAILY ondansetron (ZOFRAN) tablet 16 mg 16 mg oral Q24H prochlorperazine (COMPAZINE) tablet 5-10 mg 5-10 mg oral Q6H Allergies: No Known Allergies Laboratory or other studies: Recent Labs 05/27/15 0002 05/27/15 0516 05/28/15 0620 WBC 23.47* 21.84* 15.84* HB 11.6* 11.3* 11.2* HCT 34.2* 32.3* 32.1* PLT 106* 102* 81* NEUTROPERC 3.5* 7.9* 12.2* LYMPHPERC 31.3 23.9 26.1 MONOPERC 28.7* 23.0* 23.5* BASOPERC 0.0 0.0 0.0 EOSPERC 0.0* 1.8 0.0* Recent Labs 05/27/15 0002 05/27/15 0516 05/27/15 2330 05/28/15 0808 05/28/15 1554 NA 141 143 143 142 142 K 3.9 4.1 4.4 4.1 3.6 CL 106 109* 111* 110* 110* BICARB 29 26 25 25 25 BUN 17 14 9 9 9 CR 0.98 0.95 0.90 0.80 0.87 CA 9.5 9.0 8.4* 8.4* 8.3* MG 2.1 2.1 2.1 -- -- PO4 3.7 3.2 2.7 3.2 2.7 AST 28 28 25 -- -- ALT 42 37 41 -- -- TBILI 0.2* 0.2* 0.2* -- -- AP 55 48* 49* -- -- ALB 4.2 3.7 3.8 -- -- TP 7.9 7.1 6.8 -- -- No results found for: CULTURE Lab Results Component Value Date APTT 37.6* 05/27/2015 FIBRINOGEN 333 05/27/2015 Latonya Wilkerson ANP - 05/28/2015 5:33 PM PST Daily NPP Note - Chemotherapy Admit [facility] Attending: Yari Garcia PCP: Pending Pcp ADDITION Date of Admission: 05/26/2015 Hematologic Malignancy: AML Reason for admission: Work-up and Induction Chemotherapy 24 Hour Events/Current Daily Plan: -AML: confirmed by PB sent 05/27. Cytogenetics, genetrails PENDING. BM Bx from OSH PENDING heme path review at [facility]. Started induction 3+7, Day 2 -Leukocytosis, anemia and thrombocytopenia: with 38% atypicals present. Standard transfusio ns. None today. -Risk for TLS: TLS labs Q8hrs during chemotherapy initiation, thus far no TLS -Possible HX Pericarditis: presented to OSH on severel visits to ED with CP, worse when sit ting forward in high fowlers. Echo done at OSH x 2 both notmal, no noted pericarditis or eff usions. He received a course of colchicine and is now asymptomatic therefore dc'd this. -CINV: Started compazine ATC and continue antiemetics PRN -Lytes; Standard repletions. None today. Subjective: Feeling nauseous today, worse this AM. Objective: Last Vitals: BP 127/49 | Pulse 73 | Temp 36.8 C (98.2 F) | RR 18 | Ht 1.9 m (6' 2.8") | Wt 85.866 kg (189 lb 4.8 oz) | SpO2 98% | BMI 23.79 kg/(m^2) 24 Hour Vital Min/Max: Systolic (24hrs), Av mmHg, Min:109 mmHg, Max:128 mmHg Diastolic (24hrs), Av mmHg, Min:49 mmHg, Max:57 mmHg Pulse Min: 57 Max: 73 Temp Min: 36.4 C (97.5 F) Max: 36.9 C (98.4 F) Resp Min: 16 Max: 18 SpO2 Min: 98 % Max: 99 % Intake/Output Summary (Last 24 hours) at 05/28/15 1733 Last data filed at 05/28/15 1618 Gross per 24 hour Intake 6262.5 ml Output 4305 ml Net 1957.5 ml Physical Exam: General: This is a male in no acute distress. Sitting in bed. HEENT: PERRL. Sclerae anicteric. Mucosa pink and moist without erythema or exudate. Skin: No rash, lesions noted. Chest: Lungs clear to auscultation bilat. CV: RRR, no murmurs. Abdomen: S/NT/ND with NABS. No HSM appreciated. Extremities: Pulses strong and equal bilaterally. No c/c/e. NeuroPsych: Alert and oriented x 3. Grossly nonfocal exam. CVC: PICC line dressing dry and intact Recent Labs 05/27/15 0002 05/27/15 0516 05/27/15 2330 05/28/15 0808 05/28/15 1554 NA 141 143 143 142 142 K 3.9 4.1 4.4 4.1 3.6 CL 106 109* 111* 110* 110* BICARB 29 26 25 25 25 BUN 17 14 9 9 9 CR 0.98 0.95 0.90 0.80 0.87 GLU 95 99 114* 118* 133* CA 9.5 9.0 8.4* 8.4* 8.3* AST 28 28 25 -- -- ALT 42 37 41 -- -- AP 55 48* 49* -- -- TBILI 0.2* 0.2* 0.2* -- -- TP 7.9 7.1 6.8 -- -- ALB 4.2 3.7 3.8 -- -- Recent Labs 05/27/15 0002 05/27/15 0516 05/28/15 0620 WBC 23.47* 21.84* 15.84* RBC 3.62* 3.48* 3.45* HB 11.6* 11.3* 11.2* HCT 34.2* 32.3* 32.1* PLT 106* 102* 81* NEUTROPERC 3.5* 7.9* 12.2* LYMPHPERC 31.3 23.9 26.1 MONOPERC 28.7* 23.0* 23.5* BASOPERC 0.0 0.0 0.0 EOSPERC 0.0* 1.8 0.0* Meds: Reviewed on rounds, see current MAR for medication list SUMMARY OF PATIENT'S HOSPITALIZATION History of Present Illness: 24 yo M with pmhx of pericarditis and new diagnosis of acute leukemia admitted for inducti on and management. Had been in usual state of great health until 03/13/15 (the night of his wedding) at which ti me he noted bilateral ankle pain and swelling. This persisted and worsened intermittently, n otably when hunting on 03/19/15. Then after work, couldn't walk well 2/2 pain and inevitably couldn't bear weight on his feet. Presented to the ED and was diagnosed with cellulitis of t he RLE, given antibiotics. During evaluation patient also noted to have pancytopenia with douglass bsequent white blood cell differential identifying a predominance of early appearing monocyt es. Then 04/18 began to have pleuritic anterior chest pains, low-grade fevers occasionally up to 101. Also had onset of swelling and erythema over his left ankle, seen in the [facility] emergency room on April 19, CT angiogram negative for blood clot. CBC demonstrated wh ite count 15,300 with 59% monocytes, 3% immature monocytes, hemoglobin 11.8, platelets 146,0 00. He was apparently treated with antibiotics, also colchicine and anti-inflammatory agents - for possible dx of pericarditis - with complete resolution of his symptoms. After he finished the antibiotics and other medicines, the symptoms came back, repeat the to the emergency room on April 26. Repeat CT angiogram was again negative for pulmonary em bolus or other abnormality. CBC showed white count 14,300 with 48% monocytes, 4% immature mo nocytes, hemoglobin 12.8, platelets 180,000. He was again treated with the anti-inflammatory reason colchicine, no antibiotics, again with complete resolution of symptoms. Was referred to Oncology and at ange time had pleuritic anterior chest pain, low-grade fever s. CBC demonstrated white count 17,600 with 66 percent monocytes, hemoglobin 11.8, platelets 115,000, did have 3.5% basophils. Review of his peripheral smear by pathology revealed many immature monocytes but no overt blasts. 05/19/15 had bone marrow bx confirming AML (see below) as well as flow cytometry. Since the n he has been doing realtively well. Still some anterior chest pain if he lies on his stomac h or back, but ok if sitting upright. No fevers, chills, bleeding, hematochezia. No gingival bleeding. Hospitalization History: Hematology: #AML Pertinent Diagnostics: -BM Bx done at OSH 05/19/15. Awaiting heme path review here at [facility] PENDING -Results:86% of blast equivalents, comprised of myeloblasts, monoblasts and promonocytes. Concurrent flow cytometry detected 23% myeloid blasts and 60% immature monocytic cells supp orting this diagnosis. -Cytogenetics: Normal male karyotype (awaiting peripheral cytogenetics sent 05/27 at [facility] ) -Genetrails: CEBPA , NPM1, FLT3 NEGATIVE (awaiting peripheral genetrails sent 05/27 at [facility]) -Peripheral blood flow (05/27) confirmed diagnosis of AML at [facility] with 47% blasts Treatment: -Chemotherapy regimen: standard induction with 3+7 Idarubicin 12 mg/m2 daily x 3 days Cytarabine 100 mg/m2 CI IV daily x 7 days. -Chemo Day: 2 Patient is a candidate for transplant based on Dx and prognostic feature PENDING. Reques t insurance approval for typing. HLA typing sent 05/27. He has two brothers for potential d onors. #Leukocytosis, Anemia, Thrombocytopenia: Secondary to acute leukeumia -Monitor CBC with differential daily -Folate, B12 (05/27)- PENDING #Supportive Care: Growth factor: Not indicated with this chemotherapy Labs: Continue to check CBC with diff daily Transfusion parameters: -Transfuse PRBCs for HCT <21% if asymptomatic -Transfuse PPH for platelet count <10,000 or sooner PRN s/s bleeding. Cardiovascular: #Prechemotherapy Echo results (05/18): EF 60-65 %. Left ventricular diastolic function is n ormal. Essentially a normal 2-D echo/M-mode/Doppler/color Doppler study. #Bradycardia- 05/27 EKG, normal sinus bradycardia #Possible HX Pericarditis: presented to OSH on severel visits to ED with CP, worse when sit ting forward in high fowlers. Echo done at OSH x 2 both normal, no noted pericarditis or eff usions. He received a course of colchicine and is now asymptomatic therefore dc'd this. 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 Fungal: Not indicated, consider posaconazole for prophy as pt is current marijuana user Viral: Acyclovir PCP: Not indicated Fluid/Nutrition/Lytes: #Nutrition: Regular diet, No Kezia's yogurt or Kefir #Fluid: NS at 125 mL/hr #Risk for TLS: Allopurinol, TLS labs Q8, eight hours after chemotherapy begins #Lytes: -Continue to check chemistries daily -Replace per supportive care protocol. Disposition: Anticipate 3-4 admission for induction chemotherapy. RONALD Merrill ANP [facility] [address] [facility] Mailcode: [facility] [place], [place] [id number] James Barrow RPh - 05/27/2015 10:54 PM PSTSubjective: The subject is participating in the "Prospective characterization of chemotherapy induced n ausea and vomiting (CINV) in oncology patients receiving chemotherapy" study. The subject has been admitted for treatment containing at least moderately emetogenic chemo therapy regimen and is eligible per the inclusion/exclusion criteria. The patient will self report using the modified [facility] questionnaire if they receive a dose of medication for ros tmemt of nausea or emesis for this observational study. The IRB-approved consent was reviewed, signed, and all questions were answered. A copy of the signed consent form was given to the subject and another placed in the chart. The subject was instructed, by the Manager Cancer on how to complete study materials via disc ussion of the actual form the subject will be using. Objective: Medications and history of nausea/vomiting were reviewed for eligibility for this study and the subject meets study criteria. Consenting was completed prior to any study activity taking place Plan: Manager Cancer will follow up with patient daily and if the questionnaire is initiated will e nsure that patient understands its use and is able to do timely assessments. Please check in with the pharmacy on 14K if there are questions with regard to the study or its forms James Soto PharmD Robyn Lainez NP - 05/27/2015 4:18 PM PST Daily NPP Note - Chemotherapy Admit [facility] Attending: Yari Garcia PCP: Pending Pcp ADDITION Date of Admission: 05/26/2015 Hematologic Malignancy: AML Reason for admission: Work-up and Induction Chemotherapy 24 Hour Events/Current Daily Plan: -AML (confirmed on peripheral blood flow 05/27): Induction 3+7, Day 1 -Hx of ?Pericarditis: asymptomatic, discontinued cochicine 05/27 -Anemia, thrombocytopenia, leukocytosis r/t disease: transfuse per standard supportive care parameters. None required today. -Risk for TLS: TLS labs Q8hrs during chemotherapy initiation Subjective: Feeling well this morning. Ready to get started with treatment. Objective: Last Vitals: BP 121/66 | Pulse 54 | Temp 37.1 C (98.8 F) | RR 16 | Ht 1.9 m (6' 2.8") | Wt 84.369 kg (186 lb) | SpO2 100% | BMI 23.37 kg/(m^2) 24 Hour Vital Min/Max: Systolic (24hrs), Av mmHg, Min:105 mmHg, Max:132 mmHg Diastolic (24hrs), Av mmHg, Min:51 mmHg, Max:66 mmHg Pulse Min: 44 Max: 59 Temp Min: 36.6 C (97.9 F) Max: 37.1 C (98.8 F) Resp Min: 16 Max: 16 SpO2 Min: 98 % Max: 100 % Intake/Output Summary (Last 24 hours) at 05/27/15 1618 Last data filed at 05/27/15 1607 Gross per 24 hour Intake 2555 ml Output 2700 ml Net -145 ml Physical Exam: General: This is a male in no acute distress. Sitting in bed. HEENT: PERRL. Sclerae anicteric. Mucosa pink and moist without erythema or exudate. Skin: No rash, lesions noted. Chest: Lungs clear to auscultation bilat. CV: RRR, no murmurs. Abdomen: S/NT/ND with NABS. No HSM appreciated. Extremities: Pulses strong and equal bilaterally. No c/c/e. NeuroPsych: Alert and oriented x 3. Grossly nonfocal exam. CVC: PICC line dressing dry and intact Recent Labs 05/27/15 0002 05/27/15 0516 NA 141 143 K 3.9 4.1 CL 106 109* BICARB 29 26 BUN 17 14 CR 0.98 0.95 GLU 95 99 CA 9.5 9.0 AST 28 28 ALT 42 37 AP 55 48* TBILI 0.2* 0.2* TP 7.9 7.1 ALB 4.2 3.7 Recent Labs 05/27/15 0002 05/27/15 0516 WBC 23.47* 21.84* RBC 3.62* 3.48* HB 11.6* 11.3* HCT 34.2* 32.3* PLT 106* 102* NEUTROPERC 3.5* 7.9* LYMPHPERC 31.3 23.9 MONOPERC 28.7* 23.0* BASOPERC 0.0 0.0 EOSPERC 0.0* 1.8 Meds: Reviewed on rounds, see current MAR for medication list SUMMARY OF PATIENT'S HOSPITALIZATION History of Present Illness: 24 yo M with pmhx of pericarditis and new diagnosis of acute leukemia admitted for inducti on and management. Had been in usual state of [facility] health until 03/13/15 (the night of his wedding) at which ti me he noted bilateral ankle pain and swelling. This persisted and worsened intermittently, n otably when hunting on 03/19/15. Then after work, couldn't walk well 2/2 pain and inevitably couldn't bear weight on his feet. Presented to the ED and was diagnosed with cellulitis of t frederic RLE, given antibiotics. During evaluation patient also noted to have pancytopenia with douglass bsequent white blood cell differential identifying a predominance of early appearing monocyt es. Then 04/18 began to have pleuritic anterior chest pains, low-grade fevers occasionally up to 101. Also had onset of swelling and erythema over his left ankle, seen in the [facility]'s emergency room on April 19, CT angiogram negative for blood clot. CBC demonstrated wh ite count 15,300 with 59% monocytes, 3% immature monocytes, hemoglobin 11.8, platelets 146,0 00. He was apparently treated with antibiotics, also colchicine and anti-inflammatory agents - for possible dx of pericarditis - with complete resolution of his symptoms. After he finished the antibiotics and other medicines, the symptoms came back, repeat the to the emergency room on April 26. Repeat CT angiogram was again negative for pulmonary em bolus or other abnormality. CBC showed white count 14,300 with 48% monocytes, 4% immature mo nocytes, hemoglobin 12.8, platelets 180,000. He was again treated with the anti-inflammatory reason colchicine, no antibiotics, again with complete resolution of symptoms. Was referred to Oncology and at ange time had pleuritic anterior chest pain, low-grade fever s. CBC demonstrated white count 17,600 with 66 percent monocytes, hemoglobin 11.8, platelets 115,000, did have 3.5% basophils. Review of his peripheral smear by pathology revealed many immature monocytes but no overt blasts. 05/19/15 had bone marrow bx confirming AML (see below) as well as flow cytometry. Since the n he has been doing realtively well. Still some anterior chest pain if he lies on his stomac h or back, but ok if sitting upright. No fevers, chills, bleeding, hematochezia. No gingival bleeding. Hospitalization History: Hematology: #AML Pertinent Diagnostics: -BM Bx 05/19/15 (Requested OSH records 05/27) -Results:86% of blast equivalents, comprised of myeloblasts, monoblasts and promonocytes. Concurrent flow cytometry detected 23% myeloid blasts and 60% immature monocytic cells supp orting this diagnosis. -Cytogenetics: Normal male karyotype (awaiting peripheral cytogenetics sent 05/27 at [facility] ) -Genetrails: CEBPA , NPM1, FLT3 NEGATIVE (awaiting peripheral genetrails sent 05/27 at [facility]) -Peripheral blood flow (05/27) confirmed diagnosis of AML, with 47% blasts Treatment: -Chemotherapy regimen: 3+7 -Chemo Day: 1 Patient is a candidate for transplant based on Dx and prognostic feature. Request [facility] approval for typing. HLA typing sent 05/27. He has two brothers for potential donors. #Leukocytosis, Anemia, Thrombocytopenia: Secondary to acute leukeumia -Monitor CBC with differential daily -Folate, B12 (05/27)- PENDING #Supportive Care: Growth factor: Not indicated with this chemotherapy Labs: Continue to check CBC with diff daily Transfusion parameters: -Transfuse PRBCs for HCT <21% if asymptomatic OR <24% if symptomatic -Transfuse PPH for platelet count <10,000 or sooner PRN s/s bleeding. Cardiovascular: Echo results (05/18) estimated ejection fraction is 60-65 %. Left ventricul ar diastolic function is normal. Essentially a normal 2-D echo/M-mode/Doppler/color Doppler study. #Bradycardia- 05/27 EKG, normal sinus bradycardia #Pericarditis - high CRP and symtpoms c/w this at OSH. Has been on NSAID and colchicine wit h resolution of symtptoms, ECHO without effusion. No EKG changes, trop negative at OSH. 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 Fungal: Not indicated, consider posaconazole for prophy as pt is current marijuana user Viral: Not indicated PCP: Not indicated Fluid/Nutrition/Lytes: #Nutrition: Regular diet, No Kezia's yogurt or Kefir #Fluid: NS at 125 mL/hr #Risk for TLS: Allopurinol, TLS labs Q8, eight hours after chemotherapy begins #Lytes: -Continue to check chemistries daily -Replace per supportive care protocol. Disposition: Anticipate 3-4 admission for induction chemotherapy. REBECCA Pérez NP [facility] [address] [facility] Mailcode: [address] [place] [address] documented in thi s encounter Plan of [...] [address] | | | | | | [place], [place] | | | | | | [address] | | | | | | [phone] | | | | | | | | +--------+---------+ + + + + +------+--------+ + + | Name | Type | Priori | Associated Diagnoses | Date/Time | | | | ty | | | + +------+--------+ + + | BONE MARROW BX/ASP | Lab | Urgent | | 06/09/2015 12:53 PM | | [facility] ONLY | | | | PST | + +------+--------+ + + | BONE MARROW BX/ASP | Lab | Urgent | | 07/08/2015 7:53 AM | | [facility] ONLY | | | | PST | + +------+--------+ + + + + +--------+ + + | Name | Type | Priori | Associated Diagnoses | Order Schedule | | | | ty | | | + + +--------+ + + | BONE MARROW BX/ASP | Lab | Urgent | | One Time for 1 | | [facility] ONLY | | | | Occurrences starting | | | | | | 06/09/2015 until | | | | | | 06/09/2015 | + + +--------+ + + | BONE MARROW BX/ASP | Lab - | Urgent | | Once for 1 | | [facility] ONLY (PP) | [facility] | | | Occurrences starting | | | [facility] | | | 06/09/2015 until | | | Only | | | 06/09/2015 | + + +--------+ + + | X-RAY CHEST 2 VIEW | Imaging | Routin | | As Needed for 1 | | | | e | | Occurrences starting | | | | | | 07/02/2015 | + + +--------+ + + | UA, DIPSTICK ONLY | Lab | Routin | | As Needed for 1 | | | | e | | Occurrences starting | | | | | | 07/02/2015 | + + +--------+ + + | URINE, MICROSCOPIC | Lab | Routin | | As Needed for 1 | | EXAM | | e | | Occurrences starting | | | | | | 07/02/2015 | + + +--------+ + + | CULTURE, URINE BACTI | Lab | Routin | | As Needed for 1 | | | | e | | Occurrences starting | | | | | | 07/02/2015 | + + +--------+ + + | CULTURE, SPUTUM | Lab | Routin | | As Needed for 1 | | | | e | | Occurrences starting | | | | | | 07/02/2015 | + + +--------+ + + | BONE MARROW BX/ASP | Lab | Urgent | | One Time for 1 | | [facility] ONLY | | | | Occurrences starting | | | | | | 07/08/2015 until | | | | | | 07/08/2015 | + + +--------+ + + | BONE MARROW BX/ASP | Lab - | Urgent | | Once for 1 | | [facility] ONLY (PP) | [facility] | | | Occurrences starting | | | [facility] | | | 07/08/2015 until | | | Only | | | 07/08/2015 | + + +--------+ + + documented as of this encounter Procedures + +--------+ + + + | Procedure Name | Priori | Date/Time | Associated Diagnosis | Comments | | | ty | | | | + +--------+ + + + | TRANSFUSE PLATELET | Routin | 05/09/2016 | | | | PHERESIS, | e | 9:29 PM | | | | LEUKOREDUCED | | PDT | | | + +--------+ + + + | TRANSFUSE PLATELET | Routin | 05/09/2016 | | | | PHERESIS, | e | 9:29 PM | | | | LEUKOREDUCED | | PDT | | | + +--------+ + + + | TRANSFUSE RED CELLS, | Routin | 05/09/2016 | | | | LEUKOREDUCED | e | 9:29 PM | | | | | | PDT | | | + +--------+ + + + | TRANSFUSE RED CELLS, | Routin | 05/09/2016 | | | | LEUKOREDUCED | e | 9:29 PM | | | | | | PDT | | | + +--------+ + + + | TRANSFUSE PLATELET | Routin | 05/09/2016 | | | | PHERESIS, | e | 9:29 PM | | | | LEUKOREDUCED | | PDT | | | + +--------+ + + + | TRANSFUSE RED CELLS, | Routin | 05/09/2016 | | | | LEUKOREDUCED | e | 9:29 PM | | | | | | PDT | | | + +--------+ + + + | PROCEDURE NOTE | Routin | 08/12/2015 | | Results for this | | | e | 11:26 AM | | procedure are in the | | | | PST | | results section. | + +--------+ + + + | BONE MARROW BIOPSY | Routin | 08/12/2015 | | Results for this | | | e | 11:14 AM | | procedure are in the | | | | PST | | results section. | + +--------+ + + + | PROCEDURE NOTE | Routin | 08/12/2015 | | Results for this | | | e | 10:47 AM | | procedure are in the | | | | PST | | results section. | + +--------+ + + + | MIRANDA CLEMENT) BY PCR | Routin | 07/08/2015 | | Results for this | | | e | 11:14 AM | | procedure are in the | | | | PST | | results section. | + +--------+ + + + | CYTOGENETICS BONE | Urgent | 07/08/2015 | | Results for this | | MARROW CHROMOSOME | | 7:53 AM | | procedure are in the | | ANALYSIS (W/FISH) | | PST | | results section. | + +--------+ + + + | LEUKEMIA/LYMPHOMA | Routin | 07/08/2015 | | | | MARKERS - BONE | e | 7:53 AM | | | | MARROW | | PST | | | + +--------+ + + + | BONE MARROW BX/ASP | Urgent | 07/08/2015 | | | | [facility] ONLY | | 7:53 AM | | | | | | PST | | | + +--------+ + + + | PRODUCT - PLATELET | Routin | 07/08/2015 | | Results for this | | PHERESIS | e | 2:26 AM | | procedure are in the | | LEUKOREDUCED | | PST | | results section. | + +--------+ + + + | CYTOGENETICS BONE | Urgent | 07/08/2015 | | Results for this | | MARROW CHROMOSOME | | | | procedure are in the | | ANALYSIS (W/FISH) | | | | results section. | | (PP) | | | | | + +--------+ + + + | LEUKEMIA/LYMPHOMA | Routin | 07/08/2015 | | Results for this | | MARKERS - BONE | e | | | procedure are in the | | MARROW (PP) | | | | results section. | + +--------+ + + + | LEUKEMIA/LYMPHOMA | Routin | 07/08/2015 | | Results for this | | MARKERS - BONE | e | | | procedure are in the | | MARROW | | | | results section. | + +--------+ + + + | CYTOGENETICS BONE | Urgent | 07/08/2015 | | Results for this | | MARROW CHROMOSOME | | | | procedure are in the | | ANALYSIS (W/FISH) | | | | results section. | + +--------+ + + + | CBC AND AUTO DIFF | Routin | 07/07/2015 | | Results for this | | | e | 11:40 PM | | procedure are in the | | | | PST | | results section. | + +--------+ + + + | MANUAL DIFFERENTIAL | Routin | 07/07/2015 | | Results for this | | | e | 11:40 PM | | procedure are in the | | | | PST | | results section. | + +--------+ + + + | CBC, WITH | Routin | 07/07/2015 | | Results for this | | DIFFERENTIAL | e | 11:40 PM | | procedure are in the | | | | PST | | results section. | + +--------+ + + + | COMPLETE METABOLIC | Routin | 07/07/2015 | | Results for this | | SET | e | 11:40 PM | | procedure are in the | | (NA,K,CL,CO2,BUN,CRE | | PST | | results section. | | AT,GLUC,CA,AST,ALT,B | | | | | | YUN TOTAL,ALK | | | | | | PHOS,ALB,PROT TOTAL) | | | | | + +--------+ + + + | PHOSPHORUS, PLASMA | Routin | 07/07/2015 | | Results for this | | | e | 11:40 PM | | procedure are in the | | | | PST | | results section. | + +--------+ + + + | URIC ACID, PLASMA | Routin | 07/07/2015 | | Results for this | | | e | 11:40 PM | | procedure are in the | | | | PST | | results section. | + +--------+ + + + | MAGNESIUM, PLASMA | Routin | 07/07/2015 | | Results for this | | | e | 11:40 PM | | procedure are in the | | | | PST | | results section. | + +--------+ + + + | LDH TOTAL, PLASMA | Routin | 07/07/2015 | | Results for this | | | e | 11:40 PM | | procedure are in the | | | | PST | | results section. | + +--------+ + + + | 12 LEAD ECG | Routin | 07/07/2015 | | Results for this | | | e | 4:58 PM | | procedure are in the | | | | PST | | results section. | + +--------+ + + + | CBC AND AUTO DIFF | Routin | 07/07/2015 | | Results for this | | | e | 12:30 AM | | procedure are in the | | | | PST | | results section. | + +--------+ + + + | MANUAL DIFFERENTIAL | Routin | 07/07/2015 | | Results for this | | | e | 12:30 AM | | procedure are in the | | | | PST | | results section. | + +--------+ + + + | CBC, WITH | Routin | 07/07/2015 | | Results for this | | DIFFERENTIAL | e | 12:30 AM | | procedure are in the | | | | PST | | results section. | + +--------+ + + + | COMPLETE METABOLIC | Routin | 07/07/2015 | | Results for this | | SET | e | 12:30 AM | | procedure are in the | | (NA,K,CL,CO2,BUN,CRE | | PST | | results section. | | AT,GLUC,CA,AST,ALT,B | | | | | | YUN TOTAL,ALK | | | | | | PHOS,ALB,PROT TOTAL) | | | | | + +--------+ + + + | PHOSPHORUS, PLASMA | Routin | 07/07/2015 | | Results for this | | | e | 12:30 AM | | procedure are in the | | | | PST | | results section. | + +--------+ + + + | MAGNESIUM, PLASMA | Routin | 07/07/2015 | | Results for this | | | e | 12:30 AM | | procedure are in the | | | | PST | | results section. | + +--------+ + + + | RBC MORPHOLOGY | Routin | 07/05/2015 | | Results for this | | | e | 11:11 PM | | procedure are in the | | | | PST | | results section. | + +--------+ + + + | CBC AND AUTO DIFF | Routin | 07/05/2015 | | Results for this | | | e | 11:11 PM | | procedure are in the | | | | PST | | results section. | + +--------+ + + + | MANUAL DIFFERENTIAL | Routin | 07/05/2015 | | Results for this | | | e | 11:11 PM | | procedure are in the | | | | PST | | results section. | + +--------+ + + + | CBC, WITH | Routin | 07/05/2015 | | Results for this | | DIFFERENTIAL | e | 11:11 PM | | procedure are in the | | | | PST | | results section. | + +--------+ + + + | COMPLETE METABOLIC | Routin | 07/05/2015 | | Results for this | | SET | e | 11:11 PM | | procedure are in the | | (NA,K,CL,CO2,BUN,CRE | | PST | | results section. | | AT,GLUC,CA,AST,ALT,B | | | | | | YUN TOTAL,ALK | | | | | | PHOS,ALB,PROT TOTAL) | | | | | + +--------+ + + + | PHOSPHORUS, PLASMA | Routin | 07/05/2015 | | Results for this | | | e | 11:11 PM | | procedure are in the | | | | PST | | results section. | + +--------+ + + + | MAGNESIUM, PLASMA | Routin | 07/05/2015 | | Results for this | | | e | 11:11 PM | | procedure are in the | | | | PST | | results section. | + +--------+ + + + | RBC MORPHOLOGY | Routin | 07/05/2015 | | | | | e | 12:10 AM | | | | | | PST | | | + +--------+ + + + | CBC AND AUTO DIFF | Routin | 07/05/2015 | | Results for this | | | e | 12:10 AM | | procedure are in the | | | | PST | | results section. | + +--------+ + + + | MANUAL DIFFERENTIAL | Routin | 07/05/2015 | | Results for this | | | e | 12:10 AM | | procedure are in the | | | | PST | | results section. | + +--------+ + + + | CBC, WITH | Routin | 07/05/2015 | | Results for this | | DIFFERENTIAL | e | 12:10 AM | | procedure are in the | | | | PST | | results section. | + +--------+ + + + | COMPLETE METABOLIC | Routin | 07/05/2015 | | Results for this | | SET | e | 12:10 AM | | procedure are in the | | (NA,K,CL,CO2,BUN,CRE | | PST | | results section. | | AT,GLUC,CA,AST,ALT,B | | | | | | YUN TOTAL,ALK | | | | | | PHOS,ALB,PROT TOTAL) | | | | | + +--------+ + + + | PHOSPHORUS, PLASMA | Routin | 07/05/2015 | | Results for this | | | e | 12:10 AM | | procedure are in the | | | | PST | | results section. | + +--------+ + + + | URIC ACID, PLASMA | Routin | 07/05/2015 | | Results for this | | | e | 12:10 AM | | procedure are in the | | | | PST | | results section. | + +--------+ + + + | MAGNESIUM, PLASMA | Routin | 07/05/2015 | | Results for this | | | e | 12:10 AM | | procedure are in the | | | | PST | | results section. | + +--------+ + + + | LDH TOTAL, PLASMA | Routin | 07/05/2015 | | Results for this | | | e | 12:10 AM | | procedure are in the | | | | PST | | results section. | + +--------+ + + + | TRANSFUSE RED CELLS, | Routin | 07/04/2015 | | | | LEUKOREDUCED | e | 12:20 PM | | | | | | PST | | | + +--------+ + + + | PRODUCT - RED CELLS | Routin | 07/04/2015 | | Results for this | | LEUKOREDUCED | e | 1:51 AM | | procedure are in the | | | | PST | | results section. | + +--------+ + + + | CBC AND AUTO DIFF | Routin | 07/04/2015 | | Results for this | | | e | 12:31 AM | | procedure are in the | | | | PST | | results section. | + +--------+ + + + | CBC, WITH | Routin | 07/04/2015 | | Results for this | | DIFFERENTIAL | e | 12:31 AM | | procedure are in the | | | | PST | | results section. | + +--------+ + + + | COMPLETE METABOLIC | Routin | 07/04/2015 | | Results for this | | SET | e | 12:31 AM | | procedure are in the | | (NA,K,CL,CO2,BUN,CRE | | PST | | results section. | | AT,GLUC,CA,AST,ALT,B | | | | | | YUN TOTAL,ALK | | | | | | PHOS,ALB,PROT TOTAL) | | | | | + +--------+ + + + | PHOSPHORUS, PLASMA | Routin | 07/04/2015 | | Results for this | | | e | 12:31 AM | | procedure are in the | | | | PST | | results section. | + +--------+ + + + | MAGNESIUM, PLASMA | Routin | 07/04/2015 | | Results for this | | | e | 12:31 AM | | procedure are in the | | | | PST | | results section. | + +--------+ + + + | PRODUCT - RED CELLS | Routin | 07/03/2015 | | Results for this | | LEUKOREDUCED | e | 12:10 PM | | procedure are in the | | | | PST | | results section. | + +--------+ + + + | TRANSFUSION REACTION | Routin | 07/03/2015 | | Results for this | | | e | 8:21 AM | | procedure are in the | | | | PST | | results section. | + +--------+ + + + | TRANSFUSE RED CELLS, | Routin | 07/03/2015 | | | | LEUKOREDUCED | e | 8:20 AM | | | | | | PST | | | + +--------+ + + + | TRANSFUSE PLATELET | Routin | 07/03/2015 | | | | PHERESIS, | e | 7:31 AM | | | | LEUKOREDUCED | | PST | | | + +--------+ + + + | PRODUCT - PLATELET | Routin | 07/03/2015 | | Results for this | | PHERESIS | e | 4:14 AM | | procedure are in the | | LEUKOREDUCED | | PST | | results section. | + +--------+ + + + | PRODUCT - RED CELLS | Routin | 07/03/2015 | | Results for this | | LEUKOREDUCED | e | 4:14 AM | | procedure are in the | | | | PST | | results section. | + +--------+ + + + | ANTIBODY SCREEN | Routin | 07/03/2015 | | Results for this | | | e | 3:21 AM | | procedure are in the | | | | PST | | results section. | + +--------+ + + + | TYPE AND SCREEN | Routin | 07/03/2015 | | Results for this | | | e | 3:21 AM | | procedure are in the | | | | PST | | results section. | + +--------+ + + + | ABO & RH TYPE | Routin | 07/03/2015 | | Results for this | | | e | 3:21 AM | | procedure are in the | | | | PST | | results section. | + +--------+ + + + | CBC AND AUTO DIFF | Routin | 07/03/2015 | | Results for this | | | e | 12:08 AM | | procedure are in the | | | | PST | | results section. | + +--------+ + + + | CBC, WITH | Routin | 07/03/2015 | | Results for this | | DIFFERENTIAL | e | 12:08 AM | | procedure are in the | | | | PST | | results section. | + +--------+ + + + | COMPLETE METABOLIC | Routin | 07/03/2015 | | Results for this | | SET | e | 12:08 AM | | procedure are in the | | (NA,K,CL,CO2,BUN,CRE | | PST | | results section. | | AT,GLUC,CA,AST,ALT,B | | | | | | YUN TOTAL,ALK | | | | | | PHOS,ALB,PROT TOTAL) | | | | | + +--------+ + + + | PHOSPHORUS, PLASMA | Routin | 07/03/2015 | | Results for this | | | e | 12:08 AM | | procedure are in the | | | | PST | | results section. | + +--------+ + + + | MAGNESIUM, PLASMA | Routin | 07/03/2015 | | Results for this | | | e | 12:08 AM | | procedure are in the | | | | PST | | results section. | + +--------+ + + + | CULTURE, URINE [facility] | Routin | 07/02/2015 | | Results for this | | | e | 9:05 AM | | procedure are in the | | | | PST | | results section. | + +--------+ + + + | SODIUM TOTAL, URINE | Routin | 07/02/2015 | | Results for this | | | e | 9:05 AM | | procedure are in the | | | | PST | | results section. | + +--------+ + + + | UA, DIPSTICK ONLY | Routin | 07/02/2015 | | Results for this | | | e | 9:05 AM | | procedure are in the | | | | PST | | results section. | + +--------+ + + + | URINE, MICROSCOPIC | Routin | 07/02/2015 | | Results for this | | EXAM | e | 9:05 AM | | procedure are in the | | | | PST | | results section. | + +--------+ + + + | URINE SCREEN FOR | Routin | 07/02/2015 | | Results for this | | CULTURE | e | 9:05 AM | | procedure are in the | | | | PST | | results section. | + +--------+ + + + | EOSINOPHILS, URINE | Routin | 07/02/2015 | | Results for this | | (SPOT) | e | 9:05 AM | | procedure are in the | | | | PST | | results section. | + +--------+ + + + | PROTEIN, URINE | Routin | 07/02/2015 | | Results for this | | | e | 9:05 AM | | procedure are in the | | | | PST | | results section. | + +--------+ + + + | CREATININE, URINE | Routin | 07/02/2015 | | Results for this | | | e | 9:05 AM | | procedure are in the | | | | PST | | results section. | + +--------+ + + + | CBC AND AUTO DIFF | Routin | 07/01/2015 | | Results for this | | | e | 11:57 PM | | procedure are in the | | | | PST | | results section. | + +--------+ + + + | CBC, WITH | Routin | 07/01/2015 | | Results for this | | DIFFERENTIAL | e | 11:57 PM | | procedure are in the | | | | PST | | results section. | + +--------+ + + + | COMPLETE METABOLIC | Routin | 07/01/2015 | | Results for this | | [...] + | PHOSPHORUS, PLASMA | Routin | 07/01/2015 | | Results for this | | | e | 11:57 PM | | procedure are in the | | | | PST | | results section. | + +--------+ + + + | URIC ACID, PLASMA | Routin | 07/01/2015 | | Results for this | | | e | 11:57 PM | | procedure are in the | | | | PST | | results section. | + +--------+ + + + | MAGNESIUM, PLASMA | Routin | 07/01/2015 | | Results for this | | | e | 11:57 PM | | procedure are in the | | | | PST | | results section. | + +--------+ + + + | VRE (DIAZ) BY PCR | Routin | 07/01/2015 | | Results for this | | | e | 12:00 PM | | procedure are in the | | | | PST | | results section. | + +--------+ + + + | CBC AND AUTO DIFF | Routin | 07/01/2015 | | Results for this | | | e | 12:08 AM | | procedure are in the | | | | PST | | results section. | + +--------+ + + + | CBC, WITH | Routin | 07/01/2015 | | Results for this | | DIFFERENTIAL | e | 12:08 AM | | procedure are in the | | | | PST | | results section. | + +--------+ + + + | COMPLETE METABOLIC | Routin | 07/01/2015 | | Results for this | | SET | e | 12:08 AM | | procedure are in the | | (NA,K,CL,CO2,BUN,CRE | | PST | | results section. | | AT,GLUC,CA,AST,ALT,B | | | | | | YUN TOTAL,ALK | | | | | | PHOS,ALB,PROT TOTAL) | | | | | + +--------+ + + + | PHOSPHORUS, PLASMA | Routin | 07/01/2015 | | Results for this | | | e | 12:08 AM | | procedure are in the | | | | PST | | results section. | + +--------+ + + + | MAGNESIUM, PLASMA | Routin | 07/01/2015 | | Results for this | | | e | 12:08 AM | | procedure are in the | | | | PST | | results section. | + +--------+ + + + | LDH TOTAL, PLASMA | Routin | 07/01/2015 | | Results for this | | | e | 12:08 AM | | procedure are in the | | | | PST | | results section. | + +--------+ + + + | TRANSFUSE PLATELET | Routin | 06/30/2015 | | | | PHERESIS, | e | 6:11 AM | | | | LEUKOREDUCED | | PST | | | + +--------+ + + + | PRODUCT - PLATELET | Routin | 06/30/2015 | | Results for this | | PHERESIS | e | 1:14 AM | | procedure are in the | | LEUKOREDUCED | | PST | | results section. | + +--------+ + + + | PRODUCT - PLATELET | Routin | 06/29/2015 | | Results for this | | PHERESIS | e | 11:25 PM | | procedure are in the | | LEUKOREDUCED | | PST | | results section. | + +--------+ + + + | CBC AND AUTO DIFF | Routin | 06/29/2015 | | Results for this | | | e | 11:10 PM | | procedure are in the | | | | PST | | results section. | + +--------+ + + + | CBC, WITH | Routin | 06/29/2015 | | Results for this | | DIFFERENTIAL | e | 11:10 PM | | procedure are in the | | | | PST | | results section. | + +--------+ + + + | COMPLETE METABOLIC | Routin | 06/29/2015 | | Results for this | | SET | e | 11:10 PM | | procedure are in the | | (NA,K,CL,CO2,BUN,CRE | | PST | | results section. | | AT,GLUC,CA,AST,ALT,B | | | | | | YUN TOTAL,ALK | | | | | | PHOS,ALB,PROT TOTAL) | | | | | + +--------+ + + + | PHOSPHORUS, PLASMA | Routin | 06/29/2015 | | Results for this | | | e | 11:10 PM | | procedure are in the | | | | PST | | results section. | + +--------+ + + + | MAGNESIUM, PLASMA | Routin | 06/29/2015 | | Results for this | | | e | 11:10 PM | | procedure are in the | | | | PST | | results section. | + +--------+ + + + | CBC AND AUTO DIFF | Routin | 06/28/2015 | | Results for this | | | e | 11:15 PM | | procedure are in the | | | | PST | | results section. | + +--------+ + + + | CBC, WITH | Routin | 06/28/2015 | | Results for this | | DIFFERENTIAL | e | 11:15 PM | | procedure are in the | | | | PST | | results section. | + +--------+ + + + | COMPLETE METABOLIC | Routin | 06/28/2015 | | Results for this | | [...] + | PHOSPHORUS, PLASMA | Routin | 06/28/2015 | | Results for this | | | e | 11:15 PM | | procedure are in the | | | | PST | | results section. | + +--------+ + + + | MAGNESIUM, PLASMA | Routin | 06/28/2015 | | Results for this | | | e | 11:15 PM | | procedure are in the | | | | PST | | results section. | + +--------+ + + + | C. DIFFICILE TOXIN, | Routin | 06/28/2015 | | Results for this | | W/REFLEX | e | 10:58 PM | | procedure are in the | | CONFIRMATION IF | | PST | | results section. | | INDETERMINATE | | | | | | RESULTS | | | | | + +--------+ + + + | POSACONAZOLE, QUANT | Routin | 06/28/2015 | | Results for this | | | e | 8:16 AM | | procedure are in the | | | | PST | | results section. | + +--------+ + + + | TRANSFUSE PLATELET | Routin | 06/28/2015 | | | | PHERESIS, | e | 6:07 AM | | | | LEUKOREDUCED | | PST | | | + +--------+ + + + | PRODUCT - PLATELET | Routin | 06/28/2015 | | Results for this | | PHERESIS | e | 12:38 AM | | procedure are in the | | LEUKOREDUCED | | PST | | results section. | + +--------+ + + + | CBC AND AUTO DIFF | Routin | 06/27/2015 | | Results for this | | | e | 11:00 PM | | procedure are in the | | | | PST | | results section. | + +--------+ + + + | CBC, WITH | Routin | 06/27/2015 | | Results for this | | DIFFERENTIAL | e | 11:00 PM | | procedure are in the | | | | PST | | results section. | + +--------+ + + + | COMPLETE METABOLIC | Routin | 06/27/2015 | | Results for this | | [...] + | PHOSPHORUS, PLASMA | Routin | 06/27/2015 | | Results for this | | | e | 11:00 PM | | procedure are in the | | | | PST | | results section. | + +--------+ + + + | MAGNESIUM, PLASMA | Routin | 06/27/2015 | | Results for this | | | e | 11:00 PM | | procedure are in the | | | | PST | | results section. | + +--------+ + + + | LDH TOTAL, PLASMA | Routin | 06/27/2015 | | Results for this | | | e | 11:00 PM | | procedure are in the | | | | PST | | results section. | + +--------+ + + + | TRANSFUSE RED CELLS, | Routin | 06/27/2015 | | | | LEUKOREDUCED | e | 9:28 AM | | | | | | PST | | | + +--------+ + + + | TRANSFUSE PLATELET | Routin | 06/27/2015 | | | | PHERESIS, | e | 6:13 AM | | | | LEUKOREDUCED | | PST | | | + +--------+ + + + | PRODUCT - PLATELET | Routin | 06/27/2015 | | Results for this | | PHERESIS | e | 12:24 AM | | procedure are in the | | LEUKOREDUCED | | PST | | results section. | + +--------+ + + + | PRODUCT - RED CELLS | Routin | 06/27/2015 | | Results for this | | LEUKOREDUCED | e | 12:24 AM | | procedure are in the | | | | PST | | results section. | + +--------+ + + + | ANTIBODY SCREEN | Routin | 06/27/2015 | | Results for this | | | e | 12:24 AM | | procedure are in the | | | | PST | | results section. | + +--------+ + + + | TYPE AND SCREEN | Routin | 06/27/2015 | | Results for this | | | e | 12:24 AM | | procedure are in the | | | | PST | | results section. | + +--------+ + + + | ABO & RH TYPE | Routin | 06/27/2015 | | Results for this | | | e | 12:24 AM | | procedure are in the | | | | PST | | results section. | + +--------+ + + + | CBC AND AUTO DIFF | Routin | 06/26/2015 | | Results for this | | | e | 11:55 PM | | procedure are in the | | | | PST | | results section. | + +--------+ + + + | CBC, WITH | Routin | 06/26/2015 | | Results for this | | DIFFERENTIAL | e | 11:55 PM | | procedure are in the | | | | PST | | results section. | + +--------+ + + + | COMPLETE METABOLIC | Routin | 06/26/2015 | | Results for this | | SET | e | 11:55 PM | | procedure are in the | | (NA,K,CL,CO2,BUN,CRE | | PST | | results section. | | AT,GLUC,CA,AST,ALT,B | | | | | | YUN TOTAL,ALK | | | | | | PHOS,ALB,PROT TOTAL) | | | | | + +--------+ + + + | PHOSPHORUS, PLASMA | Routin | 06/26/2015 | | Results for this | | | e | 11:55 PM | | procedure are in the | | | | PST | | results section. | + +--------+ + + + | MAGNESIUM, PLASMA | Routin | 06/26/2015 | | Results for this | | | e | 11:55 PM | | procedure are in the | | | | PST | | results section. | + +--------+ + + + | CBC AND AUTO DIFF | Routin | 06/25/2015 | | Results for this | | | e | 11:30 PM | | procedure are in the | | | | PST | | results section. | + +--------+ + + + | CBC, WITH | Routin | 06/25/2015 | | Results for this | | DIFFERENTIAL | e | 11:30 PM | | procedure are in the | | | | PST | | results section. | + +--------+ + + + | COMPLETE METABOLIC | Routin | 06/25/2015 | | Results for this | | [...] + | PHOSPHORUS, PLASMA | Routin | 06/25/2015 | | Results for this | | | e | 11:30 PM | | procedure are in the | | | | PST | | results section. | + +--------+ + + + | MAGNESIUM, PLASMA | Routin | 06/25/2015 | | Results for this | | | e | 11:30 PM | | procedure are in the | | | | PST | | results section. | + +--------+ + + + | BASIC METABOLIC SET | Routin | 06/25/2015 | | Results for this | | (NA, K, CL, TCO2, | e | 11:01 AM | | procedure are in the | | BUN, CR, GLU, CA) | | PST | | results section. | + +--------+ + + + | URIC ACID, PLASMA | Routin | 06/25/2015 | | Results for this | | | e | 11:01 AM | | procedure are in the | | | | PST | | results section. | + +--------+ + + + | CBC AND AUTO DIFF | Routin | 06/24/2015 | | Results for this | | | e | 11:00 PM | | procedure are in the | | | | PST | | results section. | + +--------+ + + + | CBC, WITH | Routin | 06/24/2015 | | Results for this | | DIFFERENTIAL | e | 11:00 PM | | procedure are in the | | | | PST | | results section. | + +--------+ + + + | COMPLETE METABOLIC | Routin | 06/24/2015 | | Results for this | | [...] + | PHOSPHORUS, PLASMA | Routin | 06/24/2015 | | Results for this | | | e | 11:00 PM | | procedure are in the | | | | PST | | results section. | + +--------+ + + + | MAGNESIUM, PLASMA | Routin | 06/24/2015 | | Results for this | | | e | 11:00 PM | | procedure are in the | | | | PST | | results section. | + +--------+ + + + | LIT HLA-DP HIGH RES | Routin | 06/24/2015 | | | | | e | 8:10 PM | | | | | | PST | | | + +--------+ + + + | LIT HLA-DRB 3,4,5 | Routin | 06/24/2015 | | Results for this | | HIGH RES | e | 8:10 PM | | procedure are in the | | | | PST | | results section. | + +--------+ + + + | LIT HLA-DQ HIGH RES | Routin | 06/24/2015 | | | | | e | 8:10 PM | | | | | | PST | | | + +--------+ + + + | LIT HLA-DR HIGH RES | Routin | 06/24/2015 | | | | | e | 8:10 PM | | | | | | PST | | | + +--------+ + + + | LIT HLA-C HIGH RES | Routin | 06/24/2015 | | | | | e | 8:10 PM | | | | | | PST | | | + +--------+ + + + | BMR/JOSE ANTONIO PANEL | Routin | 06/24/2015 | | Results for this | | | e | 8:09 PM | | procedure are in the | | | | PST | | results section. | + +--------+ + + + | LIT HLA-B HIGH RES | Routin | 06/24/2015 | | | | | e | 8:09 PM | | | | | | PST | | | + +--------+ + + + | LIT HLA-A HIGH RES | Routin | 06/24/2015 | | Results for this | | | e | 8:09 PM | | procedure are in the | | | | PST | | results section. | + +--------+ + + + | MIRANDA CLEMENT) BY PCR | Routin | 06/24/2015 | | Results for this | | | e | 11:58 AM | | procedure are in the | | | | PST | | results section. | + +--------+ + + + | TRANSFUSE RED CELLS, | Routin | 06/24/2015 | | | | LEUKOREDUCED | e | 8:07 AM | | | | | | PST | | | + +--------+ + + + | PRODUCT - RED CELLS | Routin | 06/24/2015 | | Results for this | | LEUKOREDUCED | e | 1:25 AM | | procedure are in the | | | | PST | | results section. | + +--------+ + + + | ANTIBODY SCREEN | Routin | 06/24/2015 | | Results for this | | | e | 12:30 AM | | procedure are in the | | | | PST | | results section. | + +--------+ + + + | TYPE AND SCREEN | Routin | 06/24/2015 | | Results for this | | | e | 12:30 AM | | procedure are in the | | | | PST | | results section. | + +--------+ + + + | ABO & RH TYPE | Routin | 06/24/2015 | | Results for this | | | e | 12:30 AM | | procedure are in the | | | | PST | | results section. | + +--------+ + + + | TRANSFUSE PLATELET | Routin | 06/24/2015 | | | | PHERESIS, | e | 12:09 AM | | | | LEUKOREDUCED | | PST | | | + +--------+ + + + | CBC AND AUTO DIFF | Routin | 06/24/2015 | | Results for this | | | e | 12:03 AM | | procedure are in the | | | | PST | | results section. | + +--------+ + + + | CBC, WITH | Routin | 06/24/2015 | | Results for this | | DIFFERENTIAL | e | 12:03 AM | | procedure are in the | | | | PST | | results section. | + +--------+ + + + | COMPLETE METABOLIC | Routin | 06/24/2015 | | Results for this | | SET | e | 12:03 AM | | procedure are in the | | (NA,K,CL,CO2,BUN,CRE | | PST | | results section. | | AT,GLUC,CA,AST,ALT,B | | | | | | YUN TOTAL,ALK | | | | | | PHOS,ALB,PROT TOTAL) | | | | | + +--------+ + + + | PHOSPHORUS, PLASMA | Routin | 06/24/2015 | | Results for this | | | e | 12:03 AM | | procedure are in the | | | | PST | | results section. | + +--------+ + + + | MAGNESIUM, PLASMA | Routin | 06/24/2015 | | Results for this | | | e | 12:03 AM | | procedure are in the | | | | PST | | results section. | + +--------+ + + + | LDH TOTAL, PLASMA | Routin | 06/24/2015 | | Results for this | | | e | 12:03 AM | | procedure are in the | | | | PST | | results section. | + +--------+ + + + | PRODUCT - PLATELET | Routin | 06/23/2015 | | Results for this | | PHERESIS | e | 7:46 PM | | procedure are in the | | LEUKOREDUCED | | PST | | results section. | + +--------+ + + + | PRODUCT - PLATELET | Routin | 06/23/2015 | | Results for this | | PHERESIS | e | 7:46 PM | | procedure are in the | | LEUKOREDUCED | | PST | | results section. | + +--------+ + + + | CBC AND AUTO DIFF | Routin | 06/22/2015 | | Results for this | | | e | 11:59 PM | | procedure are in the | | | | PST | | results section. | + +--------+ + + + | CBC, WITH | Routin | 06/22/2015 | | Results for this | | DIFFERENTIAL | e | 11:59 PM | | procedure are in the | | | | PST | | results section. | + +--------+ + + + | COMPLETE METABOLIC | Routin | 06/22/2015 | | Results for this | | SET | e | 11:59 PM | | procedure are in the | | (NA,K,CL,CO2,BUN,CRE | | PST | | results section. | | AT,GLUC,CA,AST,ALT,B | | | | | | YUN TOTAL,ALK | | | | | | PHOS,ALB,PROT TOTAL) | | | | | + +--------+ + + + | PHOSPHORUS, PLASMA | Routin | 06/22/2015 | | Results for this | | | e | 11:59 PM | | procedure are in the | | | | PST | | results section. | + +--------+ + + + | MAGNESIUM, PLASMA | Routin | 06/22/2015 | | Results for this | | | e | 11:59 PM | | procedure are in the | | | | PST | | results section. | + +--------+ + + + | CBC AND AUTO DIFF | Routin | 06/21/2015 | | Results for this | | | e | 11:06 PM | | procedure are in the | | | | PST | | results section. | + +--------+ + + + | CBC, WITH | Routin | 06/21/2015 | | Results for this | | DIFFERENTIAL | e | 11:06 PM | | procedure are in the | | | | PST | | results section. | + +--------+ + + + | COMPLETE METABOLIC | Routin | 06/21/2015 | | Results for this | | SET | e | 11:06 PM | | procedure are in the | | (NA,K,CL,CO2,BUN,CRE | | PST | | results section. | | AT,GLUC,CA,AST,ALT,B | | | | | | YUN TOTAL,ALK | | | | | | PHOS,ALB,PROT TOTAL) | | | | | + +--------+ + + + | PHOSPHORUS, PLASMA | Routin | 06/21/2015 | | Results for this | | | e | 11:06 PM | | procedure are in the | | | | PST | | results section. | + +--------+ + + + | MAGNESIUM, PLASMA | Routin | 06/21/2015 | | Results for this | | | e | 11:06 PM | | procedure are in the | | | | PST | | results section. | + +--------+ + + + | CBC AND AUTO DIFF | Routin | 06/20/2015 | | Results for this | | | e | 11:01 PM | | procedure are in the | | | | PST | | results section. | + +--------+ + + + | CBC, WITH | Routin | 06/20/2015 | | Results for this | | DIFFERENTIAL | e | 11:01 PM | | procedure are in the | | | | PST | | results section. | + +--------+ + + + | COMPLETE METABOLIC | Routin | 06/20/2015 | | Results for this | | [...] + | PHOSPHORUS, PLASMA | Routin | 06/20/2015 | | Results for this | | | e | 11:01 PM | | procedure are in the | | | | PST | | results section. | + +--------+ + + + | MAGNESIUM, PLASMA | Routin | 06/20/2015 | | Results for this | | | e | 11:01 PM | | procedure are in the | | | | PST | | results section. | + +--------+ + + + | LDH TOTAL, PLASMA | Routin | 06/20/2015 | | Results for this | | | e | 11:01 PM | | procedure are in the | | | | PST | | results section. | + +--------+ + + + | TRANSFUSE PLATELET | Routin | 06/20/2015 | | | | PHERESIS, | e | 7:08 AM | | | | LEUKOREDUCED | | PST | | | + +--------+ + + + | PRODUCT - PLATELET | Routin | 06/20/2015 | | Results for this | | PHERESIS | e | 12:30 AM | | procedure are in the | | LEUKOREDUCED | | PST | | results section. | + +--------+ + + + | PRODUCT - RED CELLS | Routin | 06/20/2015 | | Results for this | | LEUKOREDUCED | e | 12:30 AM | | procedure are in the | | | | PST | | results section. | + +--------+ + + + | CBC AND AUTO DIFF | Routin | 06/19/2015 | | Results for this | | | e | 11:24 PM | | procedure are in the | | | | PST | | results section. | + +--------+ + + + | CBC, WITH | Routin | 06/19/2015 | | Results for this | | DIFFERENTIAL | e | 11:24 PM | | procedure are in the | | | | PST | | results section. | + +--------+ + + + | COMPLETE METABOLIC | Routin | 06/19/2015 | | Results for this | | SET | e | 11:24 PM | | procedure are in the | | (NA,K,CL,CO2,BUN,CRE | | PST | | results section. | | AT,GLUC,CA,AST,ALT,B | | | | | | YUN TOTAL,ALK | | | | | | PHOS,ALB,PROT TOTAL) | | | | | + +--------+ + + + | PHOSPHORUS, PLASMA | Routin | 06/19/2015 | | Results for this | | | e | 11:24 PM | | procedure are in the | | | | PST | | results section. | + +--------+ + + + | MAGNESIUM, PLASMA | Routin | 06/19/2015 | | Results for this | | | e | 11:24 PM | | procedure are in the | | | | PST | | results section. | + +--------+ + + + | CBC AND AUTO DIFF | Routin | 06/19/2015 | | Results for this | | | e | 12:03 AM | | procedure are in the | | | | PST | | results section. | + +--------+ + + + | CBC, WITH | Routin | 06/19/2015 | | Results for this | | DIFFERENTIAL | e | 12:03 AM | | procedure are in the | | | | PST | | results section. | + +--------+ + + + | COMPLETE METABOLIC | Routin | 06/19/2015 | | Results for this | | SET | e | 12:03 AM | | procedure are in the | | (NA,K,CL,CO2,BUN,CRE | | PST | | results section. | | AT,GLUC,CA,AST,ALT,B | | | | | | YUN TOTAL,ALK | | | | | | PHOS,ALB,PROT TOTAL) | | | | | + +--------+ + + + | PHOSPHORUS, PLASMA | Routin | 06/19/2015 | | Results for this | | | e | 12:03 AM | | procedure are in the | | | | PST | | results section. | + +--------+ + + + | MAGNESIUM, PLASMA | Routin | 06/19/2015 | | Results for this | | | e | 12:03 AM | | procedure are in the | | | | PST | | results section. | + +--------+ + + + | AMYLASE, PLASMA | Routin | 06/19/2015 | | Results for this | | | e | 12:03 AM | | procedure are in the | | | | PST | | results section. | + +--------+ + + + | TRANSFUSE RED CELLS, | Routin | 06/18/2015 | | | | LEUKOREDUCED | e | 8:26 AM | | | | | | PST | | | + +--------+ + + + | PRODUCT - RED CELLS | Routin | 06/18/2015 | | Results for this | | LEUKOREDUCED | e | 12:08 AM | | procedure are in the | | | | PST | | results section. | + +--------+ + + + | ANTIBODY SCREEN | Routin | 06/18/2015 | | Results for this | | | e | 12:08 AM | | procedure are in the | | | | PST | | results section. | + +--------+ + + + | TYPE AND SCREEN | Routin | 06/18/2015 | | Results for this | | | e | 12:08 AM | | procedure are in the | | | | PST | | results section. | + +--------+ + + + | ABO & RH TYPE | Routin | 06/18/2015 | | Results for this | | | e | 12:08 AM | | procedure are in the | | | | PST | | results section. | + +--------+ + + + | CBC AND AUTO DIFF | Routin | 06/17/2015 | | Results for this | | | e | 11:00 PM | | procedure are in the | | | | PST | | results section. | + +--------+ + + + | CBC, WITH | Routin | 06/17/2015 | | Results for this | | DIFFERENTIAL | e | 11:00 PM | | procedure are in the | | | | PST | | results section. | + +--------+ + + + | COMPLETE METABOLIC | Routin | 06/17/2015 | | Results for this | | [...] + | PHOSPHORUS, PLASMA | Routin | 06/17/2015 | | Results for this | | | e | 11:00 PM | | procedure are in the | | | | PST | | results section. | + +--------+ + + + | MAGNESIUM, PLASMA | Routin | 06/17/2015 | | Results for this | | | e | 11:00 PM | | procedure are in the | | | | PST | | results section. | + +--------+ + + + | VRE (DIAZ) BY PCR | Routin | 06/17/2015 | | Results for this | | | e | 10:48 AM | | procedure are in the | | | | PST | | results section. | + +--------+ + + + | PLATELET COUNT, | Routin | 06/17/2015 | | Results for this | | WHOLE BLOOD | e | 6:55 AM | | procedure are in the | | | | PST | | results section. | + +--------+ + + + | PRODUCT - PLATELET | Routin | 06/17/2015 | | Results for this | | PHERESIS | e | 1:35 AM | | procedure are in the | | LEUKOREDUCED | | PST | | results section. | + +--------+ + + + | CBC AND AUTO DIFF | Routin | 06/16/2015 | | Results for this | | | e | 11:50 PM | | procedure are in the | | | | PST | | results section. | + +--------+ + + + | CBC, WITH | Routin | 06/16/2015 | | Results for this | | DIFFERENTIAL | e | 11:50 PM | | procedure are in the | | | | PST | | results section. | + +--------+ + + + | COMPLETE METABOLIC | Routin | 06/16/2015 | | Results for this | | SET | e | 11:50 PM | | procedure are in the | | (NA,K,CL,CO2,BUN,CRE | | PST | | results section. | | AT,GLUC,CA,AST,ALT,B | | | | | | YUN TOTAL,ALK | | | | | | PHOS,ALB,PROT TOTAL) | | | | | + +--------+ + + + | PHOSPHORUS, PLASMA | Routin | 06/16/2015 | | Results for this | | | e | 11:50 PM | | procedure are in the | | | | PST | | results section. | + +--------+ + + + | MAGNESIUM, PLASMA | Routin | 06/16/2015 | | Results for this | | | e | 11:50 PM | | procedure are in the | | | | PST | | results section. | + +--------+ + + + | LDH TOTAL, PLASMA | Routin | 06/16/2015 | | Results for this | | | e | 11:50 PM | | procedure are in the | | | | PST | | results section. | + +--------+ + + + | C. DIFFICILE TOXIN, | Routin | 06/16/2015 | | Results for this | | W/REFLEX | e | 9:06 AM | | procedure are in the | | CONFIRMATION IF | | PST | | results section. | | INDETERMINATE | | | | | | RESULTS | | | | | + +--------+ + + + | CBC AND AUTO DIFF | Routin | 06/15/2015 | | Results for this | | | e | 11:00 PM | | procedure are in the | | | | PST | | results section. | + +--------+ + + + | CBC, WITH | Routin | 06/15/2015 | | Results for this | | DIFFERENTIAL | e | 11:00 PM | | procedure are in the | | | | PST | | results section. | + +--------+ + + + | COMPLETE METABOLIC | Routin | 06/15/2015 | | Results for this | | [...] + | PHOSPHORUS, PLASMA | Routin | 06/15/2015 | | Results for this | | | e | 11:00 PM | | procedure are in the | | | | PST | | results section. | + +--------+ + + + | MAGNESIUM, PLASMA | Routin | 06/15/2015 | | Results for this | | | e | 11:00 PM | | procedure are in the | | | | PST | | results section. | + +--------+ + + + | 12 LEAD ECG | Routin | 06/15/2015 | | Results for this | | | e | 2:20 PM | | procedure are in the | | | | PST | | results section. | + +--------+ + + + | CBC AND AUTO DIFF | Routin | 06/14/2015 | | Results for this | | | e | 11:06 PM | | procedure are in the | | | | PST | | results section. | + +--------+ + + + | CBC, WITH | Routin | 06/14/2015 | | Results for this | | DIFFERENTIAL | e | 11:06 PM | | procedure are in the | | | | PST | | results section. | + +--------+ + + + | COMPLETE METABOLIC | Routin | 06/14/2015 | | Results for this | | SET | e | 11:06 PM | | procedure are in the | | (NA,K,CL,CO2,BUN,CRE | | PST | | results section. | | AT,GLUC,CA,AST,ALT,B | | | | | | YUN TOTAL,ALK | | | | | | PHOS,ALB,PROT TOTAL) | | | | | + +--------+ + + + | PHOSPHORUS, PLASMA | Routin | 06/14/2015 | | Results for this | | | e | 11:06 PM | | procedure are in the | | | | PST | | results section. | + +--------+ + + + | MAGNESIUM, PLASMA | Routin | 06/14/2015 | | Results for this | | | e | 11:06 PM | | procedure are in the | | | | PST | | results section. | + +--------+ + + + | TRANSFUSE PLATELET | Routin | 06/14/2015 | | | | PHERESIS, | e | 8:01 PM | | | | LEUKOREDUCED | | PST | | | + +--------+ + + + | PLATELET COUNT, | Urgent | 06/14/2015 | | Results for this | | WHOLE BLOOD | | 11:22 AM | | procedure are in the | | | | PST | | results section. | + +--------+ + + + | PRODUCT - PLATELET | Routin | 06/14/2015 | | Results for this | | PHERESIS | e | 12:34 AM | | procedure are in the | | LEUKOREDUCED | | PST | | results section. | + +--------+ + + + | PRODUCT - PLATELET | Routin | 06/14/2015 | | Results for this | | PHERESIS | e | 12:34 AM | | procedure are in the | | LEUKOREDUCED | | PST | | results section. | + +--------+ + + + | NURSING | Routin | 06/14/2015 | | | | COMMUNICATION #[id number] - | e | 12:29 AM | | | | [facility] | | PST | | | + +--------+ + + + | CBC AND AUTO DIFF | Routin | 06/13/2015 | | Results for this | | | e | 11:09 PM | | procedure are in the | | | | PST | | results section. | + +--------+ + + + | CBC, WITH | Routin | 06/13/2015 | | Results for this | | DIFFERENTIAL | e | 11:09 PM | | procedure are in the | | | | PST | | results section. | + +--------+ + + + | COMPLETE METABOLIC | Routin | 06/13/2015 | | Results for this | | SET | e | 11:09 PM | | procedure are in the | | (NA,K,CL,CO2,BUN,CRE | | PST | | results section. | | AT,GLUC,CA,AST,ALT,B | | | | | | YUN TOTAL,ALK | | | | | | PHOS,ALB,PROT TOTAL) | | | | | + +--------+ + + + | PHOSPHORUS, PLASMA | Routin | 06/13/2015 | | Results for this | | | e | 11:09 PM | | procedure are in the | | | | PST | | results section. | + +--------+ + + + | MAGNESIUM, PLASMA | Routin | 06/13/2015 | | Results for this | | | e | 11:09 PM | | procedure are in the | | | | PST | | results section. | + +--------+ + + + | LDH TOTAL, PLASMA | Routin | 06/13/2015 | | Results for this | | | e | 11:09 PM | | procedure are in the | | | | PST | | results section. | + +--------+ + + + | TRANSFUSE RED CELLS, | Routin | 06/13/2015 | | | | LEUKOREDUCED | e | 10:53 PM | | | | | | PST | | | + +--------+ + + + | PRODUCT - RED CELLS | Routin | 06/13/2015 | | Results for this | | LEUKOREDUCED | e | 5:07 PM | | procedure are in the | | | | PST | | results section. 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 | + +--------+ + + + | BASIC METABOLIC SET | Routin | 06/13/2015 | Acute myeloid | Results for this | | (NA, K, CL, TCO2, | e | 1:19 PM | leukemia (AML), M4 | procedure are in the | | BUN, CR, GLU, CA) | | PST | ([facility]) | results section. 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 | + +--------+ + + + | COAGULOPATHY PANEL | Routin | 06/13/2015 | Acute myeloid | Results for this | | (INR,APTT,FIBRINOGEN | e | 1:19 PM | leukemia (AML), M4 | procedure are in the | | ) | | PST | ([facility]) | results section. 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 | + +--------+ + + + | TRANSFUSE PLATELET | Routin | 06/13/2015 | | | | PHERESIS, | e | 8:39 AM | | | | LEUKOREDUCED | | PST | | | + +--------+ + + + | PRODUCT - PLATELET | Routin | 06/13/2015 | | Results for this | | PHERESIS | e | 1:01 AM | | procedure are in the | | LEUKOREDUCED | | PST | | results section. | + +--------+ + + + | D-DIMER, (PE OR DIC) | Routin | 06/12/2015 | Acute myeloid | Results for this | | | e | 11:20 PM | leukemia (AML), M4 | procedure are in the | | | | PST | ([facility]) | results section. | + +--------+ + + + | CBC AND AUTO DIFF | Routin | 06/12/2015 | | Results for this | | | e | 11:17 PM | | procedure are in the | | | | PST | | results section. | + +--------+ + + + | CBC, WITH | Routin | 06/12/2015 | | Results for this | | DIFFERENTIAL | e | 11:17 PM | | procedure are in the | | | | PST | | results section. | + +--------+ + + + | COMPLETE METABOLIC | Routin | 06/12/2015 | | Results for this | | SET | e | 11:17 PM | | procedure are in the | | (NA,K,CL,CO2,BUN,CRE | | PST | | results section. | | AT,GLUC,CA,AST,ALT,B | | | | | | YUN TOTAL,ALK | | | | | | PHOS,ALB,PROT TOTAL) | | | | | + +--------+ + + + | PHOSPHORUS, PLASMA | Routin | 06/12/2015 | | Results for this | | | e | 11:17 PM | | procedure are in the | | | | PST | | results section. | + +--------+ + + + | MAGNESIUM, PLASMA | Routin | 06/12/2015 | | Results for this | | | e | 11:17 PM | | procedure are in the | | | | PST | | results section. | + +--------+ + + + | CBC (HEMOGRAM) ONLY | Routin | 06/12/2015 | Acute myeloid | Results for this | | | e | 11:13 AM | leukemia (AML), M4 | procedure are in the | | | | PST | ([facility]) | results section. | + +--------+ + + + | BASIC METABOLIC SET | Routin | 06/12/2015 | Acute myeloid | Results for this | | (NA, K, CL, TCO2, | e | 11:13 AM | leukemia (AML), M4 | procedure are in the | | BUN, CR, GLU, CA) | | PST | ([facility]) | results section. | + +--------+ + + + | CBC ONLY | Routin | 06/12/2015 | Acute myeloid | Results for this | | | e | 11:13 AM | leukemia (AML), M4 | procedure are in the | | | | PST | ([facility]) | results section. | + +--------+ + + + | COAGULOPATHY PANEL | Routin | 06/12/2015 | Acute myeloid | Results for this | | (INR,APTT,FIBRINOGEN | e | 11:13 AM | leukemia (AML), M4 | procedure are in the | | ) | | PST | ([facility]) | results section. | + +--------+ + + + | PHOSPHORUS, PLASMA | Routin | 06/12/2015 | Acute myeloid | Results for this | | | e | 11:13 AM | leukemia (AML), M4 | procedure are in the | | | | PST | ([facility]) | results section. | + +--------+ + + + | URIC ACID, PLASMA | Routin | 06/12/2015 | Acute myeloid | Results for this | | | e | 11:13 AM | leukemia (AML), M4 | procedure are in the | | | | PST | ([facility]) | results section. | + +--------+ + + + | D-DIMER, (PE OR DIC) | Routin | 06/12/2015 | Acute myeloid | Results for this | | | e | 10:55 AM | leukemia (AML), M4 | procedure are in the | | | | PST | ([facility]) | results section. | + +--------+ + + + | CBC AND AUTO DIFF | Routin | 06/11/2015 | | Results for this | | | e | 11:30 PM | | procedure are in the | | | | PST | | results section. | + +--------+ + + + | CBC, WITH | Routin | 06/11/2015 | | Results for this | | DIFFERENTIAL | e | 11:30 PM | | procedure are in the | | | | PST | | results section. | + +--------+ + + + | COMPLETE METABOLIC | Routin | 06/11/2015 | | Results for this | | [...] + | PHOSPHORUS, PLASMA | Routin | 06/11/2015 | | Results for this | | | e | 11:30 PM | | procedure are in the | | | | PST | | results section. | + +--------+ + + + | MAGNESIUM, PLASMA | Routin | 06/11/2015 | | Results for this | | | e | 11:30 PM | | procedure are in the | | | | PST | | results section. | + +--------+ + + + | PROCEED WITH | Routin | 06/11/2015 | | | | CHEMOTHERAPY | e | 3:01 PM | | | | OVERRIDE TREATMENT | | PST | | | | PARAMETERS | | | | | + +--------+ + + + | TREATMENT PARAMETERS | Routin | 06/11/2015 | Acute myeloid | | | #1 - [facility] | e | 11:36 AM | leukemia (AML), M4 | | | | | PST | (HCC) | | + +--------+ + + + | ADMINISTER | Routin | 06/11/2015 | | | | CHEMOTHERAPY PER | e | 11:29 AM | | | | TREATMENT PARAMETERS | | PST | | | + +--------+ + + + | TRANSFUSE RED CELLS, | Routin | 06/11/2015 | | | | LEUKOREDUCED | e | 10:58 AM | | | | | | PST | | | + +--------+ + + + | TRANSFUSE PLATELET | Routin | 06/11/2015 | | | | PHERESIS, | e | 6:14 AM | | | | LEUKOREDUCED | | PST | | | + +--------+ + + + | PRODUCT - PLATELET | Routin | 06/10/2015 | | Results for this | | PHERESIS | e | 11:54 PM | | procedure are in the | | LEUKOREDUCED | | PST | | results section. | + +--------+ + + + | PRODUCT - RED CELLS | Routin | 06/10/2015 | | Results for this | | LEUKOREDUCED | e | 11:54 PM | | procedure are in the | | | | PST | | results section. | + +--------+ + + + | ANTIBODY SCREEN | Routin | 06/10/2015 | | Results for this | | | e | 11:54 PM | | procedure are in the | | | | PST | | results section. | + +--------+ + + + | TYPE AND SCREEN | Routin | 06/10/2015 | | Results for this | | | e | 11:54 PM | | procedure are in the | | | | PST | | results section. | + +--------+ + + + | ABO & RH TYPE | Routin | 06/10/2015 | | Results for this | | | e | 11:54 PM | | procedure are in the | | | | PST | | results section. | + +--------+ + + + | RBC MORPHOLOGY | Routin | 06/10/2015 | | Results for this | | | e | 11:10 PM | | procedure are in the | | | | PST | | results section. | + +--------+ + + + | CBC AND AUTO DIFF | Routin | 06/10/2015 | | Results for this | | | e | 11:10 PM | | procedure are in the | | | | PST | | results section. | + +--------+ + + + | MANUAL DIFFERENTIAL | Routin | 06/10/2015 | | Results for this | | | e | 11:10 PM | | procedure are in the | | | | PST | | results section. | + +--------+ + + + | CBC, WITH | Routin | 06/10/2015 | | Results for this | | DIFFERENTIAL | e | 11:10 PM | | procedure are in the | | | | PST | | results section. | + +--------+ + + + | COMPLETE METABOLIC | Routin | 06/10/2015 | | Results for this | | SET | e | 11:10 PM | | procedure are in the | | (NA,K,CL,CO2,BUN,CRE | | PST | | results section. | | AT,GLUC,CA,AST,ALT,B | | | | | | YUN TOTAL,ALK | | | | | | PHOS,ALB,PROT TOTAL) | | | | | + +--------+ + + + | PHOSPHORUS, PLASMA | Routin | 06/10/2015 | | Results for this | | | e | 11:10 PM | | procedure are in the | | | | PST | | results section. | + +--------+ + + + | MAGNESIUM, PLASMA | Routin | 06/10/2015 | | Results for this | | | e | 11:10 PM | | procedure are in the | | | | PST | | results section. | + +--------+ + + + | MIRANDA CLEMENT) BY PCR | Routin | 06/10/2015 | | Results for this | | | e | 12:57 PM | | procedure are in the | | | | PST | | results section. | + +--------+ + + + | CBC AND AUTO DIFF | Routin | 06/09/2015 | | Results for this | | | e | 11:30 PM | | procedure are in the | | | | PST | | results section. | + +--------+ + + + | MANUAL DIFFERENTIAL | Routin | 06/09/2015 | | Results for this | | | e | 11:30 PM | | procedure are in the | | | | PST | | results section. | + +--------+ + + + | CBC, WITH | Routin | 06/09/2015 | | Results for this | | DIFFERENTIAL | e | 11:30 PM | | procedure are in the | | | | PST | | results section. | + +--------+ + + + | COMPLETE METABOLIC | Routin | 06/09/2015 | | Results for this | | [...] + | PHOSPHORUS, PLASMA | Routin | 06/09/2015 | | Results for this | | | e | 11:30 PM | | procedure are in the | | | | PST | | results section. | + +--------+ + + + | MAGNESIUM, PLASMA | Routin | 06/09/2015 | | Results for this | | | e | 11:30 PM | | procedure are in the | | | | PST | | results section. | + +--------+ + + + | LDH TOTAL, PLASMA | Routin | 06/09/2015 | | Results for this | | | e | 11:30 PM | | procedure are in the | | | | PST | | results section. | + +--------+ + + + | CULTURE, FUNGAL | Urgent | 06/09/2015 | | Results for this | | EXCEPT BLOOD, SKIN, | | 2:45 PM | | procedure are in the | | HAIR, NAIL | | PST | | results section. | + +--------+ + + + | CULTURE, TISSUE | Routin | 06/09/2015 | | Results for this | | | e | 2:45 PM | | procedure are in the | | | | PST | | results section. | + +--------+ + + + | CULTURE, AFB (ALL | Routin | 06/09/2015 | | Results for this | | SPEC TYPES EXCEPT | e | 2:45 PM | | procedure are in the | | BLOOD) | | PST | | results section. | + +--------+ + + + | LEUKEMIA/LYMPHOMA | Urgent | 06/09/2015 | | | | MARKERS - BONE | | 12:53 PM | | | | MARROW | | PST | | | + +--------+ + + + | BONE MARROW BX/ASP | Urgent | 06/09/2015 | | | | MORPH ONLY | | 12:53 PM | | | | | | PST | | | + +--------+ + + + | VANCOMYCIN, TROUGH | Routin | 06/09/2015 | | Results for this | | | e | 11:47 AM | | procedure are in the | | | | PST | | results section. | + +--------+ + + + | TRANSFUSE RED CELLS, | Routin | 06/09/2015 | | | | LEUKOREDUCED | e | 9:08 AM | | | | | | PST | | | + +--------+ + + + | PRODUCT - RED CELLS | Routin | 06/09/2015 | | Results for this | | LEUKOREDUCED | e | 12:36 AM | | procedure are in the | | | | PST | | results section. | + +--------+ + + + | C. DIFFICILE TOXIN, | Routin | 06/09/2015 | | Results for this | | W/REFLEX | e | 12:24 AM | | procedure are in the | | CONFIRMATION IF | | PST | | results section. | | INDETERMINATE | | | | | | RESULTS | | | | | + +--------+ + + + | LEUKEMIA/LYMPHOMA | Urgent | 06/09/2015 | | Results for this | | MARKERS - BONE | | | | procedure are in the | | MARROW (PP) | | | | results section. | + +--------+ + + + | LEUKEMIA/LYMPHOMA | Urgent | 06/09/2015 | | Results for this | | MARKERS - BONE | | | | procedure are in the | | MARROW | | | | results section. | + +--------+ + + + | CBC AND AUTO DIFF | Routin | 06/08/2015 | | Results for this | | | e | 11:45 PM | | procedure are in the | | | | PST | | results section. | + +--------+ + + + | MANUAL DIFFERENTIAL | Routin | 06/08/2015 | | Results for this | | | e | 11:45 PM | | procedure are in the | | | | PST | | results section. | + +--------+ + + + | CBC, WITH | Routin | 06/08/2015 | | Results for this | | DIFFERENTIAL | e | 11:45 PM | | procedure are in the | | | | PST | | results section. | + +--------+ + + + | COMPLETE METABOLIC | Routin | 06/08/2015 | | Results for this | | [...] + | PHOSPHORUS, PLASMA | Routin | 06/08/2015 | | Results for this | | | e | 11:45 PM | | procedure are in the | | | | PST | | results section. | + +--------+ + + + | MAGNESIUM, PLASMA | Routin | 06/08/2015 | | Results for this | | | e | 11:45 PM | | procedure are in the | | | | PST | | results section. | + +--------+ + + + | TRANSFUSE PLATELET | Routin | 06/08/2015 | | | | PHERESIS, | e | 4:15 PM | | | | LEUKOREDUCED | | PST | | | + +--------+ + + + | POSACONAZOLE, QUANT | Routin | 06/08/2015 | | Results for this | | | e | 7:51 AM | | procedure are in the | | | | PST | | results section. | + +--------+ + + + | PRODUCT - PLATELET | Routin | 06/08/2015 | | Results for this | | PHERESIS | e | 1:27 AM | | procedure are in the | | LEUKOREDUCED | | PST | | results section. | + +--------+ + + + | CBC AND AUTO DIFF | Routin | 06/07/2015 | | Results for this | | | e | 11:30 PM | | procedure are in the | | | | PST | | results section. | + +--------+ + + + | MANUAL DIFFERENTIAL | Routin | 06/07/2015 | | Results for this | | | e | 11:30 PM | | procedure are in the | | | | PST | | results section. | + +--------+ + + + | CBC, WITH | Routin | 06/07/2015 | | Results for this | | DIFFERENTIAL | e | 11:30 PM | | procedure are in the | | | | PST | | results section. | + +--------+ + + + | COMPLETE METABOLIC | Routin | 06/07/2015 | | Results for this | | [...] + | PHOSPHORUS, PLASMA | Routin | 06/07/2015 | | Results for this | | | e | 11:30 PM | | procedure are in the | | | | PST | | results section. | + +--------+ + + + | MAGNESIUM, PLASMA | Routin | 06/07/2015 | | Results for this | | | e | 11:30 PM | | procedure are in the | | | | PST | | results section. | + +--------+ + + + | CULTURE, BLOOD BACTI | Routin | 06/07/2015 | | Results for this | | & YEAST [facility] | e | 3:14 PM | | procedure are in the | | | | PST | | results section. | + +--------+ + + + | CULTURE, BLOOD BACTI | Routin | 06/07/2015 | | Results for this | | & YEAST | e | 3:14 PM | | procedure are in the | | | | PST | | results section. | + +--------+ + + + | CT MAXILLOFACIAL W | Routin | 06/07/2015 | | Results for this | | CONTRAST | e | 12:33 PM | | procedure are in the | | | | PST | | results section. | + +--------+ + + + | TRANSFUSE RED CELLS, | Routin | 06/07/2015 | | | | LEUKOREDUCED | e | 9:13 AM | | | | | | PST | | | + +--------+ + + + | TRANSFUSE PLATELET | Routin | 06/07/2015 | | | | PHERESIS, | e | 9:12 AM | | | | LEUKOREDUCED | | PST | | | + +--------+ + + + | PRODUCT - RED CELLS | Routin | 06/07/2015 | | Results for this | | LEUKOREDUCED | e | 1:10 AM | | procedure are in the | | | | PST | | results section. | + +--------+ + + + | RBC MORPHOLOGY | Routin | 06/06/2015 | | | | | e | 11:50 PM | | | | | | PST | | | + +--------+ + + + | CBC AND AUTO DIFF | Routin | 06/06/2015 | | Results for this | | | e | 11:50 PM | | procedure are in the | | | | PST | | results section. | + +--------+ + + + | MANUAL DIFFERENTIAL | Routin | 06/06/2015 | | Results for this | | | e | 11:50 PM | | procedure are in the | | | | PST | | results section. | + +--------+ + + + | CBC, WITH | Routin | 06/06/2015 | | Results for this | | DIFFERENTIAL | e | 11:50 PM | | procedure are in the | | | | PST | | results section. | + +--------+ + + + | COMPLETE METABOLIC | Routin | 06/06/2015 | | Results for this | | SET | e | 11:50 PM | | procedure are in the | | (NA,K,CL,CO2,BUN,CRE | | PST | | results section. | | AT,GLUC,CA,AST,ALT,B | | | | | | YUN TOTAL,ALK | | | | | | PHOS,ALB,PROT TOTAL) | | | | | + +--------+ + + + | PHOSPHORUS, PLASMA | Routin | 06/06/2015 | | Results for this | | | e | 11:50 PM | | procedure are in the | | | | PST | | results section. | + +--------+ + + + | MAGNESIUM, PLASMA | Routin | 06/06/2015 | | Results for this | | | e | 11:50 PM | | procedure are in the | | | | PST | | results section. | + +--------+ + + + | LDH TOTAL, PLASMA | Routin | 06/06/2015 | | Results for this | | | e | 11:50 PM | | procedure are in the | | | | PST | | results section. | + +--------+ + + + | CONFIRMATORY ABO/RH | Urgent | 06/06/2015 | | Results for this | | | | 5:48 AM | | procedure are in the | | | | PST | | results section. | + +--------+ + + + | PRODUCT - PLATELET | Routin | 06/06/2015 | | Results for this | | PHERESIS | e | 2:25 AM | | procedure are in the | | LEUKOREDUCED | | PST | | results section. | + +--------+ + + + | PRODUCT - RED CELLS | Routin | 06/06/2015 | | Results for this | | LEUKOREDUCED | e | 2:25 AM | | procedure are in the | | | | PST | | results section. | + +--------+ + + + | ANTIBODY SCREEN | Routin | 06/06/2015 | | Results for this | | | e | 2:25 AM | | procedure are in the | | | | PST | | results section. | + +--------+ + + + | TYPE AND SCREEN | Routin | 06/06/2015 | | Results for this | | | e | 2:25 AM | | procedure are in the | | | | PST | | results section. | + +--------+ + + + | ABO & RH TYPE | Routin | 06/06/2015 | | Results for this | | | e | 2:25 AM | | procedure are in the | | | | PST | | results section. | + +--------+ + + + | RBC MORPHOLOGY | Routin | 06/06/2015 | | | | | e | 12:40 AM | | | | | | PST | | | + +--------+ + + + | CBC AND AUTO DIFF | Routin | 06/06/2015 | | Results for this | | | e | 12:40 AM | | procedure are in the | | | | PST | | results section. | + +--------+ + + + | MANUAL DIFFERENTIAL | Routin | 06/06/2015 | | Results for this | | | e | 12:40 AM | | procedure are in the | | | | PST | | results section. | + +--------+ + + + | CBC, WITH | Routin | 06/06/2015 | | Results for this | | DIFFERENTIAL | e | 12:40 AM | | procedure are in the | | | | PST | | results section. | + +--------+ + + + | COMPLETE METABOLIC | Routin | 06/06/2015 | | Results for this | | SET | e | 12:40 AM | | procedure are in the | | (NA,K,CL,CO2,BUN,CRE | | PST | | results section. | | AT,GLUC,CA,AST,ALT,B | | | | | | YUN TOTAL,ALK | | | | | | PHOS,ALB,PROT TOTAL) | | | | | + +--------+ + + + | PHOSPHORUS, PLASMA | Routin | 06/06/2015 | | Results for this | | | e | 12:40 AM | | procedure are in the | | | | PST | | results section. | + +--------+ + + + | MAGNESIUM, PLASMA | Routin | 06/06/2015 | | Results for this | | | e | 12:40 AM | | procedure are in the | | | | PST | | results section. | + +--------+ + + + | CT SINUS WO CONTRAST | Routin | 06/05/2015 | | Results for this | | ROUTINE | e | 4:19 PM | | procedure are in the | | | | PST | | results section. | + +--------+ + + + | VASC LAB VENOUS | Routin | 06/05/2015 | | Results for this | | DUPLEX UPPER | e | 3:24 PM | | procedure are in the | | EXTREMITY LT | | PST | | results section. | + +--------+ + + + | PRODUCT - PLATELET | Routin | 06/05/2015 | | Results for this | | PHERESIS | e | 2:00 AM | | procedure are in the | | LEUKOREDUCED | | PST | | results section. | + +--------+ + + + | CBC AND AUTO DIFF | Routin | 06/05/2015 | | Results for this | | | e | 12:09 AM | | procedure are in the | | | | PST | | results section. | + +--------+ + + + | MANUAL DIFFERENTIAL | Routin | 06/05/2015 | | Results for this | | | e | 12:09 AM | | procedure are in the | | | | PST | | results section. | + +--------+ + + + | CBC, WITH | Routin | 06/05/2015 | | Results for this | | DIFFERENTIAL | e | 12:09 AM | | procedure are in the | | | | PST | | results section. | + +--------+ + + + | COMPLETE METABOLIC | Routin | 06/05/2015 | | Results for this | | SET | e | 12:09 AM | | procedure are in the | | (NA,K,CL,CO2,BUN,CRE | | PST | | results section. | | AT,GLUC,CA,AST,ALT,B | | | | | | YUN TOTAL,ALK | | | | | | PHOS,ALB,PROT TOTAL) | | | | | + +--------+ + + + | PHOSPHORUS, PLASMA | Routin | 06/05/2015 | | Results for this | | | e | 12:09 AM | | procedure are in the | | | | PST | | results section. | + +--------+ + + + | MAGNESIUM, PLASMA | Routin | 06/05/2015 | | Results for this | | | e | 12:09 AM | | procedure are in the | | | | PST | | results section. | + +--------+ + + + | RBC MORPHOLOGY | Routin | 06/03/2015 | | | | | e | 11:25 PM | | | | | | PST | | | + +--------+ + + + | CBC AND AUTO DIFF | Routin | 06/03/2015 | | Results for this | | | e | 11:25 PM | | procedure are in the | | | | PST | | results section. | + +--------+ + + + | MANUAL DIFFERENTIAL | Routin | 06/03/2015 | | Results for this | | | e | 11:25 PM | | procedure are in the | | | | PST | | results section. | + +--------+ + + + | CBC, WITH | Routin | 06/03/2015 | | Results for this | | DIFFERENTIAL | e | 11:25 PM | | procedure are in the | | | | PST | | results section. | + +--------+ + + + | COMPLETE METABOLIC | Routin | 06/03/2015 | | Results for this | | SET | e | 11:25 PM | | procedure are in the | | (NA,K,CL,CO2,BUN,CRE | | PST | | results section. | | AT,GLUC,CA,AST,ALT,B | | | | | | YUN TOTAL,ALK | | | | | | PHOS,ALB,PROT TOTAL) | | | | | + +--------+ + + + | PHOSPHORUS, PLASMA | Routin | 06/03/2015 | | Results for this | | | e | 11:25 PM | | procedure are in the | | | | PST | | results section. | + +--------+ + + + | MAGNESIUM, PLASMA | Routin | 06/03/2015 | | Results for this | | | e | 11:25 PM | | procedure are in the | | | | PST | | results section. | + +--------+ + + + | VRE (DIAZ) BY PCR | Routin | 06/03/2015 | | Results for this | | | e | 11:42 AM | | procedure are in the | | | | PST | | results section. | + +--------+ + + + | RBC MORPHOLOGY | Routin | 06/02/2015 | | | | | e | 11:45 PM | | | | | | PST | | | + +--------+ + + + | CBC AND AUTO DIFF | Routin | 06/02/2015 | | Results for this | | | e | 11:45 PM | | procedure are in the | | | | PST | | results section. | + +--------+ + + + | MANUAL DIFFERENTIAL | Routin | 06/02/2015 | | Results for this | | | e | 11:45 PM | | procedure are in the | | | | PST | | results section. | + +--------+ + + + | CBC, WITH | Routin | 06/02/2015 | | Results for this | | DIFFERENTIAL | e | 11:45 PM | | procedure are in the | | | | PST | | results section. | + +--------+ + + + | COMPLETE METABOLIC | Routin | 06/02/2015 | | Results for this | | [...] + | PHOSPHORUS, PLASMA | Routin | 06/02/2015 | | Results for this | | | e | 11:45 PM | | procedure are in the | | | | PST | | results section. | + +--------+ + + + | MAGNESIUM, PLASMA | Routin | 06/02/2015 | | Results for this | | | e | 11:45 PM | | procedure are in the | | | | PST | | results section. | + +--------+ + + + | LDH TOTAL, PLASMA | Routin | 06/02/2015 | | Results for this | | | e | 11:45 PM | | procedure are in the | | | | PST | | results section. | + +--------+ + + + | CBC AND AUTO DIFF | Routin | 06/01/2015 | | Results for this | | | e | 11:35 PM | | procedure are in the | | | | PST | | results section. | + +--------+ + + + | MANUAL DIFFERENTIAL | Routin | 06/01/2015 | | Results for this | | | e | 11:35 PM | | procedure are in the | | | | PST | | results section. | + +--------+ + + + | CBC, WITH | Routin | 06/01/2015 | | Results for this | | DIFFERENTIAL | e | 11:35 PM | | procedure are in the | | | | PST | | results section. | + +--------+ + + + | COMPLETE METABOLIC | Routin | 06/01/2015 | | Results for this | | SET | e | 11:35 PM | | procedure are in the | | (NA,K,CL,CO2,BUN,CRE | | PST | | results section. | | AT,GLUC,CA,AST,ALT,B | | | | | | YUN TOTAL,ALK | | | | | | PHOS,ALB,PROT TOTAL) | | | | | + +--------+ + + + | PHOSPHORUS, PLASMA | Routin | 06/01/2015 | | Results for this | | | e | 11:35 PM | | procedure are in the | | | | PST | | results section. | + +--------+ + + + | MAGNESIUM, PLASMA | Routin | 06/01/2015 | | Results for this | | | e | 11:35 PM | | procedure are in the | | | | PST | | results section. | + +--------+ + + + | CBC AND AUTO DIFF | Routin | 05/31/2015 | | Results for this | | | e | 11:41 PM | | procedure are in the | | | | PST | | results section. | + +--------+ + + + | MANUAL DIFFERENTIAL | Routin | 05/31/2015 | | Results for this | | | e | 11:41 PM | | procedure are in the | | | | PST | | results section. | + +--------+ + + + | CBC, WITH | Routin | 05/31/2015 | | Results for this | | DIFFERENTIAL | e | 11:41 PM | | procedure are in the | | | | PST | | results section. | + +--------+ + + + | COMPLETE METABOLIC | Routin | 05/31/2015 | | Results for this | | SET | e | 11:41 PM | | procedure are in the | | (NA,K,CL,CO2,BUN,CRE | | PST | | results section. | | AT,GLUC,CA,AST,ALT,B | | | | | | YUN TOTAL,ALK | | | | | | PHOS,ALB,PROT TOTAL) | | | | | + +--------+ + + + | PHOSPHORUS, PLASMA | Routin | 05/31/2015 | | Results for this | | | e | 11:41 PM | | procedure are in the | | | | PST | | results section. | + +--------+ + + + | MAGNESIUM, PLASMA | Routin | 05/31/2015 | | Results for this | | | e | 11:41 PM | | procedure are in the | | | | PST | | results section. | + +--------+ + + + | CBC AND AUTO DIFF | Routin | 05/31/2015 | | Results for this | | | e | 12:27 AM | | procedure are in the | | | | PST | | results section. | + +--------+ + + + | MANUAL DIFFERENTIAL | Routin | 05/31/2015 | | Results for this | | | e | 12:27 AM | | procedure are in the | | | | PST | | results section. | + +--------+ + + + | CBC, WITH | Routin | 05/31/2015 | | Results for this | | DIFFERENTIAL | e | 12:27 AM | | procedure are in the | | | | PST | | results section. | + +--------+ + + + | COMPLETE METABOLIC | Routin | 05/31/2015 | | Results for this | | SET | e | 12:27 AM | | procedure are in the | | (NA,K,CL,CO2,BUN,CRE | | PST | | results section. | | AT,GLUC,CA,AST,ALT,B | | | | | | YUN TOTAL,ALK | | | | | | PHOS,ALB,PROT TOTAL) | | | | | + +--------+ + + + | PHOSPHORUS, PLASMA | Routin | 05/31/2015 | | Results for this | | | e | 12:27 AM | | procedure are in the | | | | PST | | results section. | + +--------+ + + + | URIC ACID, PLASMA | Routin | 05/31/2015 | | Results for this | | | e | 12:27 AM | | procedure are in the | | | | PST | | results section. | + +--------+ + + + | MAGNESIUM, PLASMA | Routin | 05/31/2015 | | Results for this | | | e | 12:27 AM | | procedure are in the | | | | PST | | results section. | + +--------+ + + + | LDH TOTAL, PLASMA | Routin | 05/31/2015 | | Results for this | | | e | 12:27 AM | | procedure are in the | | | | PST | | results section. | + +--------+ + + + | CBC AND AUTO DIFF | Routin | 05/29/2015 | | Results for this | | | e | 11:10 PM | | procedure are in the | | | | PST | | results section. | + +--------+ + + + | MANUAL DIFFERENTIAL | Routin | 05/29/2015 | | Results for this | | | e | 11:10 PM | | procedure are in the | | | | PST | | results section. | + +--------+ + + + | CBC, WITH | Routin | 05/29/2015 | | Results for this | | DIFFERENTIAL | e | 11:10 PM | | procedure are in the | | | | PST | | results section. | + +--------+ + + + | COMPLETE METABOLIC | Routin | 05/29/2015 | | Results for this | | SET | e | 11:10 PM | | procedure are in the | | (NA,K,CL,CO2,BUN,CRE | | PST | | results section. | | AT,GLUC,CA,AST,ALT,B | | | | | | YUN TOTAL,ALK | | | | | | PHOS,ALB,PROT TOTAL) | | | | | + +--------+ + + + | PHOSPHORUS, PLASMA | Routin | 05/29/2015 | | Results for this | | | e | 11:10 PM | | procedure are in the | | | | PST | | results section. | + +--------+ + + + | MAGNESIUM, PLASMA | Routin | 05/29/2015 | | Results for this | | | e | 11:10 PM | | procedure are in the | | | | PST | | results section. | + +--------+ + + + | BASIC METABOLIC SET | Routin | 05/29/2015 | | Results for this | | (NA, K, CL, TCO2, | e | 7:29 AM | | procedure are in the | | BUN, CR, GLU, CA) | | PST | | results section. | + +--------+ + + + | PHOSPHORUS, PLASMA | Routin | 05/29/2015 | | Results for this | | | e | 7:29 AM | | procedure are in the | | | | PST | | results section. | + +--------+ + + + | URIC ACID, PLASMA | Routin | 05/29/2015 | | Results for this | | | e | 7:29 AM | | procedure are in the | | | | PST | | results section. | + +--------+ + + + | RBC MORPHOLOGY | Routin | 05/29/2015 | | Results for this | | | e | 12:30 AM | | procedure are in the | | | | PST | | results section. | + +--------+ + + + | CBC AND AUTO DIFF | Routin | 05/29/2015 | | Results for this | | | e | 12:30 AM | | procedure are in the | | | | PST | | results section. | + +--------+ + + + | MANUAL DIFFERENTIAL | Routin | 05/29/2015 | | Results for this | | | e | 12:30 AM | | procedure are in the | | | | PST | | results section. | + +--------+ + + + | CBC, WITH | Routin | 05/29/2015 | | Results for this | | DIFFERENTIAL | e | 12:30 AM | | procedure are in the | | | | PST | | results section. | + +--------+ + + + | COMPLETE METABOLIC | Routin | 05/29/2015 | | Results for this | | SET | e | 12:30 AM | | procedure are in the | | (NA,K,CL,CO2,BUN,CRE | | PST | | results section. | | AT,GLUC,CA,AST,ALT,B | | | | | | YUN TOTAL,ALK | | | | | | PHOS,ALB,PROT TOTAL) | | | | | + +--------+ + + + | PHOSPHORUS, PLASMA | Routin | 05/29/2015 | | Results for this | | | e | 12:30 AM | | procedure are in the | | | | PST | | results section. | + +--------+ + + + | URIC ACID, PLASMA | Routin | 05/29/2015 | | Results for this | | | e | 12:30 AM | | procedure are in the | | | | PST | | results section. | + +--------+ + + + | MAGNESIUM, PLASMA | Routin | 05/29/2015 | | Results for this | | | e | 12:30 AM | | procedure are in the | | | | PST | | results section. | + +--------+ + + + | BASIC METABOLIC SET | Routin | 05/28/2015 | | Results for this | | (NA, K, CL, TCO2, | e | 3:54 PM | | procedure are in the | | BUN, CR, GLU, CA) | | PST | | results section. | + +--------+ + + + | PHOSPHORUS, PLASMA | Routin | 05/28/2015 | | Results for this | | | e | 3:54 PM | | procedure are in the | | | | PST | | results section. | + +--------+ + + + | URIC ACID, PLASMA | Routin | 05/28/2015 | | Results for this | | | e | 3:54 PM | | procedure are in the | | | | PST | | results section. | + +--------+ + + + | BASIC METABOLIC SET | Routin | 05/28/2015 | | Results for this | | (NA, K, CL, TCO2, | e | 8:08 AM | | procedure are in the | | BUN, CR, GLU, CA) | | PST | | results section. | + +--------+ + + + | PHOSPHORUS, PLASMA | Routin | 05/28/2015 | | Results for this | | | e | 8:08 AM | | procedure are in the | | | | PST | | results section. | + +--------+ + + + | URIC ACID, PLASMA | Routin | 05/28/2015 | | Results for this | | | e | 8:08 AM | | procedure are in the | | | | PST | | results section. | + +--------+ + + + | CBC AND AUTO DIFF | Routin | 05/28/2015 | | Results for this | | | e | 6:20 AM | | procedure are in the | | | | PST | | results section. | + +--------+ + + + | MANUAL DIFFERENTIAL | Routin | 05/28/2015 | | Results for this | | | e | 6:20 AM | | procedure are in the | | | | PST | | results section. | + +--------+ + + + | CBC, WITH | Routin | 05/28/2015 | | Results for this | | DIFFERENTIAL | e | 6:20 AM | | procedure are in the | | | | PST | | results section. | + +--------+ + + + | LAB OTHER | Routin | 05/27/2015 | | Results for this | | | e | 11:30 PM | | procedure are in the | | | | PST | | results section. | + +--------+ + + + | COMPLETE METABOLIC | Routin | 05/27/2015 | | Results for this | | [...] + | PHOSPHORUS, PLASMA | Routin | 05/27/2015 | | Results for this | | | e | 11:30 PM | | procedure are in the | | | | PST | | results section. | + +--------+ + + + | URIC ACID, PLASMA | Routin | 05/27/2015 | | Results for this | | | e | 11:30 PM | | procedure are in the | | | | PST | | results section. | + +--------+ + + + | MAGNESIUM, PLASMA | Routin | 05/27/2015 | | Results for this | | | e | 11:30 PM | | procedure are in the | | | | PST | | results section. 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 | + +--------+ + + + | ABO & RH TYPE | Routin | 05/27/2015 | | Results for this | | | e | 11:25 AM | | procedure are in the | | | | PST | | results section. | + +--------+ + + + | VITAMIN B-12 | Routin | 05/27/2015 | | Results for this | | | e | 11:25 AM | | procedure are in the | | | | PST | | results section. | + +--------+ + + + | CYTOGENETICS HEM/ONC | Urgent | 05/27/2015 | | Results for this | | BLOOD CHROMOSOME | | 10:42 AM | | procedure are in the | | ANALYSIS (W/FISH) | | PST | | results section. | + +--------+ + + + | LEUKEMIA/LYMPHOMA | Urgent | 05/27/2015 | | | | MARKER - BLOOD | | 10:42 AM | | | | | | PST | | | + +--------+ + + + | X-RAY PORTABLE CHEST | Urgent | 05/27/2015 | | Results for this | | PICC LINE | | 10:06 AM | | procedure are in the | | CHECK | | PST | | results section. | | | | | | | + +--------+ + + + | 12 LEAD ECG | Routin | 05/27/2015 | | Results for this | | | e | 7:26 AM | | procedure are in the | | | | PST | | results section. | + +--------+ + + + | CONFIRMATORY ABO/RH | Urgent | 05/27/2015 | | Results for this | | | | 5:17 AM | | procedure are in the | | | | PST | | results section. | + +--------+ + + + | CBC AND AUTO DIFF | Routin | 05/27/2015 | | Results for this | | | e | 5:16 AM | | procedure are in the | | | | PST | | results section. | + +--------+ + + + | MANUAL DIFFERENTIAL | Routin | 05/27/2015 | | Results for this | | | e | 5:16 AM | | procedure are in the | | | | PST | | results section. | + +--------+ + + + | CBC, WITH | Routin | 05/27/2015 | | Results for this | | DIFFERENTIAL | e | 5:16 AM | | procedure are in the | | | | PST | | results section. | + +--------+ + + + | COMPLETE METABOLIC | Routin | 05/27/2015 | | Results for this | | SET | e | 5:16 AM | | procedure are in the | | (NA,K,CL,CO2,BUN,CRE | | PST | | results section. | | AT,GLUC,CA,AST,ALT,B | | | | | | YUN TOTAL,ALK | | | | | | PHOS,ALB,PROT TOTAL) | | | | | + +--------+ + + + | COAGULOPATHY PANEL | Routin | 05/27/2015 | | Results for this | | (INR,APTT,FIBRINOGEN | e | 5:16 AM | | procedure are in the | | ) | | PST | | results section. | + +--------+ + + + | PHOSPHORUS, PLASMA | Routin | 05/27/2015 | | Results for this | | | e | 5:16 AM | | procedure are in the | | | | PST | | results section. | + +--------+ + + + | URIC ACID, PLASMA | Routin | 05/27/2015 | | Results for this | | | e | 5:16 AM | | procedure are in the | | | | PST | | results section. | + +--------+ + + + | MAGNESIUM, PLASMA | Routin | 05/27/2015 | | Results for this | | | e | 5:16 AM | | procedure are in the | | | | PST | | results section. | + +--------+ + + + | LDH TOTAL, PLASMA | Routin | 05/27/2015 | | Results for this | | | e | 5:16 AM | | procedure are in the | | | | PST | | results section. | + +--------+ + + + | VRE (DIAZ) BY PCR | Routin | 05/27/2015 | | Results for this | | | e | 12:26 AM | | procedure are in the | | | | PST | | results section. | + +--------+ + + + | GENETRAILS AML/MDS | Routin | 05/27/2015 | | Results for this | | GENE MUTATION PANEL, | e | 12:02 AM | | procedure are in the | | BLOOD (LABEL) | | PST | | results section. | + +--------+ + + + | CBC AND AUTO DIFF | Routin | 05/27/2015 | | Results for this | | | e | 12:02 AM | | procedure are in the | | | | PST | | results section. | + +--------+ + + + | MANUAL DIFFERENTIAL | Routin | 05/27/2015 | | Results for this | | | e | 12:02 AM | | procedure are in the | | | | PST | | results section. | + +--------+ + + + | CBC, WITH | Routin | 05/27/2015 | | Results for this | | DIFFERENTIAL | e | 12:02 AM | | procedure are in the | | | | PST | | results section. | + +--------+ + + + | COMPLETE METABOLIC | Routin | 05/27/2015 | | Results for this | | SET | e | 12:02 AM | | procedure are in the | | (NA,K,CL,CO2,BUN,CRE | | PST | | results section. | | AT,GLUC,CA,AST,ALT,B | | | | | | YUN TOTAL,ALK | | | | | | PHOS,ALB,PROT TOTAL) | | | | | + +--------+ + + + | HIV-1,2 AB/HIV-1 P24 | Routin | 05/27/2015 | | Results for this | | AG SCRN | e | 12:02 AM | | procedure are in the | | | | PST | | results section. | + +--------+ + + + | ANTIBODY SCREEN | Routin | 05/27/2015 | | Results for this | | | e | 12:02 AM | | procedure are in the | | | | PST | | results section. | + +--------+ + + + | TYPE AND SCREEN | Routin | 05/27/2015 | | Results for this | | | e | 12:02 AM | | procedure are in the | | | | PST | | results section. | + +--------+ + + + | ABO & RH TYPE | Routin | 05/27/2015 | | Results for this | | | e | 12:02 AM | | procedure are in the | | | | PST | | results section. | + +--------+ + + + | PHOSPHORUS, PLASMA | Routin | 05/27/2015 | | Results for this | | | e | 12:02 AM | | procedure are in the | | | | PST | | results section. | + +--------+ + + + | HEPATITIS B SURFACE | Routin | 05/27/2015 | | Results for this | | AB QUAL, SERUM | e | 12:02 AM | | procedure are in the | | | | PST | | results section. | + +--------+ + + + | HEPATITIS B CORE AB, | Routin | 05/27/2015 | | Results for this | | SERUM | e | 12:02 AM | | procedure are in the | | | | PST | | results section. | + +--------+ + + + | HEPATITIS C VIRUS | Routin | 05/27/2015 | | Results for this | | W/CONFIRMATION | e | 12:02 AM | | procedure are in the | | | | PST | | results section. | + +--------+ + + + | BILIRUBIN DIRECT | Routin | 05/27/2015 | | Results for this | | | e | 12:02 AM | | procedure are in the | | | | PST | | results section. | + +--------+ + + + | URIC ACID, PLASMA | Routin | 05/27/2015 | | Results for this | | | e | 12:02 AM | | procedure are in the | | | | PST | | results section. | + +--------+ + + + | MAGNESIUM, PLASMA | Routin | 05/27/2015 | | Results for this | | | e | 12:02 AM | | procedure are in the | | | | PST | | results section. | + +--------+ + + + | LDH TOTAL, PLASMA | Routin | 05/27/2015 | | Results for this | | | e | 12:02 AM | | procedure are in the | | | | PST | | results section. | + +--------+ + + + | GENETRAILS AML/MDS | Routin | 05/27/2015 | | Results for this | | GENE MUTATION PANEL, | e | | | procedure are in the | | BLOOD (PP) | | | | results section. | + +--------+ + + + | [facility] AML/MDS | Routin | 05/27/2015 | | Results for this | | GENE MUTATION PANEL, | e | | | procedure are in the | | BLOOD | | | | results section. | + +--------+ + + + | CYTOGENETICS HEM/ONC | Urgent | 05/27/2015 | | Results for this | | BLOOD CHROMOSOME | | | | procedure are in the | | ANALYSIS (W/FISH) | | | | results section. | | (PP) | | | | | + +--------+ + + + | LEUKEMIA/LYMPHOMA | Urgent | 05/27/2015 | | Results for this | | MARKER - BLOOD (PP) | | | | procedure are in the | | | | | | results section. | + +--------+ + + + | CYTOGENETICS HEM/ONC | Urgent | 05/27/2015 | | Results for this | | BLOOD CHROMOSOME | | | | procedure are in the | | ANALYSIS (W/FISH) | | | | results section. | + +--------+ + + + | LEUKEMIA/LYMPHOMA | Urgent | 05/27/2015 | | Results for this | | MARKER - BLOOD | | | | procedure are in the | | | | | | results section. | + +--------+ + + + | PATHOLOGY CONSULT - | Routin | 05/19/2015 | | Results for this | | REVIEW OUTSIDE | e | | | procedure are in the | | SLIDES | | | | results section. | + +--------+ + + + documented in this encounter Results PROCEDURE NOTE (08/12/2015 11:26 AM PST)BONE MARROW BIOPSY (08/12/2015 11:14 AM PST)PROCEDU RE NOTE (08/12/2015 10:47 AM PST)JOANNEE RACQUEL) BY PCR (07/08/2015 11:14 AM PST) + + + + + [...] [facility] | [address] | [place] [address] | | | SERVICES, CORE | [address] | | | + + + + + CYTOGENETICS BONE MARROW CHROMOSOME ANALYSIS (W/FISH) (LABEL) (07/08/2015 7:53 AM PST) + + + + + [...] + + + | [facility] | [address] | [place] [address] | | | DIAGNOSTIC | [address] | | | | LABORATORIES | | | | + + + + + LEUKEMIA/LYMPHOMA MARKERS - BONE MARROW (LABEL) (07/08/2015 7:53 AM PST) + + | Specimen | + + | Bone marrow - Bone | | marrow structure | | (body structure) | + + + + + + + | Performing | Address | City/State/Zipcode | Phone Number | | Organization | | | | + + + + + | [facility] | [address] | [place] [address] | | | SERVICES, SPECIAL | [address] | | | | IMM + COAG | | | | + + + + + BONE MARROW BX/ASP MORPH ONLY (LABEL) (07/08/2015 7:53 AM PST) + + | Specimen | + + | Bone marrow - Bone | | marrow structure | | (body structure) | + + + + + + + | Performing | Address | City/State/Zipcode | Phone Number | | Organization | | | | + + + + + | [facility] | [address] | [place] [address] | | | SERVICES, SPECIAL | [address] | | | | IMM + COAG | | | | + + + + + PRODUCT - PLATELET PHERESIS LEUKOREDUCED (07/08/2015 2:26 AM PST) + + + + + [...] + + + + | PRODUCT | [id number] | | [facility] | | | UNIT [...] + + + + | EXPIRATION | [id number] | | [facility] | | | DATE [...] + + + + | BLOOD | [id number] | | [facility] | | | PRODUCT [...] DEPARTMENT OF | [address] | [place] [address] | | | PATHOLOGY | [address] | | | + + + + + CYTOGENETICS BONE MARROW CHROMOSOME ANALYSIS (W/FISH) (PP) (07/08/2015) + + + + + + | Component | Value | Ref Range | Performed | Pathologist | | | | | At | Signature | + + + + + + | CHROMOSOME | Bone Marrow: Full | | [facility] | | | REPORT | Study/FISHSupplemental | | DIAGNOSTIC | | | | indications: Acute | | | | | | myeloid leukemia | | LABORATORIE | | | | FISH Results: | | S | | | | NormalChromosome | | | | | | Results: NormalKARYOTYPE | | | | | | RESULTS: 46,XY[21] | | | | | | IMPRESSIONS AND | | | | | | RECOMMENDATIONS:All | | | | | | twenty-one metaphase | | | | | | cells analyzed appeared | | | | | | normal male. | | | | | | Fluorescent in situ | | | | | | hybridization (FISH) was | | | | | | performed with AML and | | | | | | MDSprobe panels. Probe | | | | | | sets and number of | | | | | | cells scored are listed | | | | | | below.All results were | | | | | | within the normal limits | | | | | | established by our | | | | | | laboratory. Thank | | | | | | you very much for your | | | [...] Analyzed: | | | | | | 21 Banding Level: | | | | | | 400-450Number of | | | | | | Cells Counted N/A | | | | | | Banding Method: | | | | | | GTWNumber of Cells | | | | | | Karyotyped: 3 | | | | | | FISH ANALYSIS SUMMARY: | | | | | | Cells Scored: | | | | | | 200 Probe(s): | | | | | | Blanton PML (15q22) (SO) | | | | | | / BASSEM (17q21)(SG) | | | | | | t(15;17)Cells Scored: | | | | | | 200 Probe(s): | | | | | | Blanton 5q EGR1 (5q31) | | | | | | (SO) / [id number] | | | | | | (5p15.2) (SG)Cells | | | | | | Scored: 200 | | | | | | Probe(s): Blanton | | | | | | [id number] (7q31) (SO) / CEP | | | | | | 7 (SG) Cells | | | | | | Scored: 200 | | | | | | Probe(s): Blanton BCR | | | | | | (22q11.2)(SG) / | | | | | | ABL(9q34)(SO)+ASS (9q34) | | | | | | (SA)Cells Scored: | | | | | | 200 Probe(s): | | | | | | Blanton [id number] (8q21.3) | | | | | | (SO) / RUNX1(21q22) (SG) | | | | | | t(8;21)Cells Scored: | | | | | | 200 Probe(s): | | | | | | Blanton CBFB inv(16) | | | | | | (16q22) break-apart | | | | | | Cells Scored: | | | | | | 200 Probe(s): | | | | | | Cymogen MLL (11q23) | | | | | | break-apart This | | | | | | test was developed and | | | | | | its performance | | | | | | determined by the [facility] | | | | | | [facility] | | | | | | Laboratory as required | | | | | | by the CLIA '88 | | | | | | regulations. It hasnot | | | | | | been cleared or | | | | | | approved for specific | | | | | | uses by the U.S. Food | | | | | | and DrugAdministration. | | | | | | The clinical | | | | | | interpretation was made | | | | | | by the clinical | | | | | | dietitian research. | | | | | | Rendering | | | | | | Diagnostician: [facility] | | | | | | Efrem Kaba, AB, | | | | | | FACMGClinical | | | | | | CytogeneticistElectronic | | | | | | ally Signed 07/15/2015 | | | | | | 6:44PMRendering | | | | | | Diagnostician: [facility] | | | | | | Joceline PERERA, MARCY, | | | | | | FACMGClinical | | | | | | GeneticistElectronically | | | | | | Signed 07/15/2015 | | | | | | 8:14PM | | | | + + + [...] + + + + | [facility] | [address] | [place] [address] | | | DIAGNOSTIC | [address] | | | | LABORATORIES | | | | + + + + + LEUKEMIA/LYMPHOMA MARKERS - BONE MARROW (PP) (07/08/2015) + + + + + + | Component | Value | Ref Range | Performed | Pathologist | | | | | At | Signature | + + + + + + | HEMATOPATHO | SOURCE OF SPECIMEN:A | | [facility] | | | LOGY | Bone Marrow Aspirate - | | DEPARTMENT | | | | 1x1ml EDTA; 1x3ml | | OF | | | | [...] a | | | | | | 24 year old male with a | | | | | | 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 He had | | | | | | normal | | | | | | cytogenetics/FISH. | | | | | | Molecular studiesshowed | | | | | | an NRAS mutation | | | | | | ([facility]-[id number]). His day | | | | | | 14 marrow | | | | | | demonstratedresidual | | | | | | disease ([id number], | | | | | | 05/27/2015). This is his | | | | | | day 45 marrow. 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,with: | | | | | | - Severe | | | | | | pancytopenia with rare | | | | | | circulating | | | | | | blasts/promonocytes | | | | | | - Hypocellular marrow | | | | | | (15%) with ~80% | | | | | | blasts/promonocytes- | | | | | | Blast immunophenotype | | | | | | (10% by flow): dim CD13, | | | | | | CD33, CD34, variable | | | | | | CD56, variable CD117, | | | | | | and dim RP959-rmomtiar- | | | | | | Promonocyte | | | | | | immunophenotype (70% by | | | | | | flow): CD11b, CD13, | | | | | | CD14, variable CD16, | | | | | | CD33, variable CD56, | | | | | | CD64, and HLA-DR- | | | | | | positive Comment: | | | | | | The diagnosis of | | | | | | residual acute myeloid | | | | | | leukemia was given to | | | | | | Dr.Rachel Garcia on | | | | | | 07/08/2015 by phone. | | | | | | Please correlate | | | | | | findings with | | | | | | pendingcytogenetics/FISH | | | | | | studies. Case | | | | | | seen by:Ysabel | | | | | | Luisa, | | | | | | M.D./Hematopathology | | | | | | Robbie Mullen, | | | | | | MD /Hematopathologist | | | | | | Gross [...] | | | | | | core measuring1.6 cm in | | | | | | greatest dimension. Both | | | | | | clot and the fragment | | | | | | biopsy were fixedin | | | | | | formalin and the core | | | | | | biopsy was decalcified. | | | | | | Anti-coagulated | | | | | | bonemarrow aspirate was | | | | | | also received for flow | | | | | | cytometric | | | | | | analysis. AWright-s | | | | | | tained cytoprep of the | | | | | | cell suspension was | | | | | | prepared for | | | | | | [...] | | | | reported CBC values. | | | | | | There is extremely | | | | | | severepancytopenia. The | | | | | | red blood cells are | | | | | | normochromic normocytic | | | | | | with mildpoikilocytosis. | | | | | | The white blood cells | | | | | | show marked neutropenia, | | | | | | withoccasional | | | | | | circulating immature | | | | | | monocytes and rare | | | | | | blasts. The | | | | | | lymphocytesare | | | | | | heterogeneous and are | | | | | | within the reactive | | | | | | morphologic | | | | | | spectrum.Platelets are | | | | | | markedly decreased. | | | | | | Bone Marrow Aspirate: | | | | | | The aspirate smears | | | | | | contain several | | | | | | hypocellularmarrow | | | | | | particles, with a marked | | | | | | predominance of | | | | | | promonocytes and | | | | | | immaturemononuclear | | | | | | cells consistent with | | | | | | blasts (~72%). No | | | | | | definite | | | | | | erythroidprecursors are | | | | | | identified. Rare | | | | | | possible differentiating | | | | | | myeloid precursorsare | | | | | | identified. No | | | | | | megakaryocytes are seen. | | | | | | A bone marrow | | | | | | aspirate differential | | | | | | count includes: | | | | | | Possible | | | | | | myeloidprecursors/histio | | | | | | cytes 7%, erythroid | | | | | | precursors 0%, | | | | | | lymphocytes | | | | | | 21%,blasts+promonocytes | | | | | | 72%, plasma cells 0%. | | | | | | Bone Marrow Biopsy | | | | | | and Clot Section: The | | | | | | biopsy measures | | | | | | approximately 1.5cm in | | | | | | aggregate length. The | | | | | | cellularity is | | | | | | approximately 15%. The | | | | | | vastmajority of cells | | | | | | are immature mononuclear | | | | | | cells consistent with | | | | | | blasts andpromonocytes | | | | | | (~80% involvement). | | | | | | Normal trilineage | | | | | | hematopoiesis ismarkedly | | | | | | decreased and no | | | | | | definite erythroid | | | | | | islands are seen. | | | | | | Nomegakaryocytes are | | | | | | seen. The clot section | | | | | | contains a few marrow | | | | | | particleswith a similar | | | | | | cellularity and cellular | | | | | | composition to the core | | | | | | biopsy. | | | | | | Immunologic Analysis:The | | | | | | analysis was performed | | | | | | by flow cytometry on the | | | | | | bone marrow | | | | | | aspiratespecimen and | | | | | | identifies an abnormal | | | | | | myeloid blast population | | | | | | comprisingapproximately | | | | | | 10% of total cells with | | | | | | the following | | | | | | immunophenotype: | | | | | | dimCD13, CD33, CD34, | | | | | | variable CD56, variable | | | | | | CD117, and dim | | | | | | EN866-masdwwea. | | | | | | Anabnormal population of | | | | | | promonocytes, | | | | | | comprising approximately | | | | | | 70% of totalcells, is | | | | | | also identified with the | | | | | | following phenotype: | | | | | | CD11b, CD13, | | | | | | CD14,variable CD16, | | | | | | CD33, variable CD56, | | | | | | CD64, and | | | | | | VDS-RY-pvlhmakf. | | | | | | Maturelymphocytes | | | | | | comprise approximately | | | | | | 16% of total cells and | | | | | | are composed of96% T | | | | | | cells, 3% NK cells, and | | | | | | <1% B cells. T cells are | | | | | | present in a | | | | | | CD4:UR1hmrbc of about | | | | | | 1.7:1 and do not | | | | | | demonstrate aberrant | | | | | | antigen expression. | | | | | | Amonoclonal B-cell | | | | | | population is not | | | | | | identified based on | | | | | | surface light | | | | | | chainanalysis. Please | | | | | | see below for antibodies | | | | | | tested. | | | | | | Antibodies Tested | | | | | | CD2 CD3 CD4 CD5 | | | | | | CD7 CD8 CD10 | | | | | | [id number] CD19 CD20 CD14 | | | | | | CD15 CD16 CD33 [id number] | | | | | | CD56 CD64 CD71 CD117 | | | | | | CD123 HLA-DR | | | | | | [...] Laboratory | | | | | | Data:07/07/15 @ 11:40pm | | | | | | Ref Range | | | | | | ValueWHITE CELL COUNT | | | | | | 4.40-11.00 K/cu mm | | | | | | 0.60 (L)RED CELL COUNT | | | | | | 4.50-6.00 M/cu mm | | | | | | 2.77 (L)HEMOGLOBIN | | | | | | 13.5-17.5 g/dL 8.1 | | | | | | (L)HEMATOCRIT | | | | | | 41.0-53.0 % 22.5 | | | | | | (L)MCV 80.0-96.0 fL | | | | | | 81.2MCHC 33.0-35.5 g/dL | | | | | | 36.0RDW SD | | | | | | 35.1-46.3 fL 33.9 | | | | | | (L)PLATELET COUNT | | | | | | 150-400 K/cu mm 8 | | | | | | (LL)MPV 9.7-12.3 fL | | | | | | 9.7NRBC% | | | | | | 0.0-0.3 % 0.0NRBC# | | | | | | 0.00-0.02 K/cu mm | | | | | | 0.00NEUTROPHIL % | | | | | | 50.0-70.0 % 0.0 | | | | | | (L)LYMPHOCYTE % | | | | | | 18.0-42.0 % 47.9 | | | | | | (H)MONOCYTE % | | | | | | 3.5-9.0 % 45.5 | | | | | | (H)EOSINOPHIL % | | | | | | 1.0-3.0 % 0.0 | | | | | | (L)BASOPHIL % | | | | | | 0.0-2.0 % 0.0IMMATURE | | | | | | GRANULOCYTE% | | | | | | 0.0-0.6 % 0.0 My | | | | | | [...] Diagnostician: | | | | | | Brandy Mullen | | | | | | AugustHematopathologistEle | | | | | | ctronically Signed | | | | | | 07/12/2015 4:10PM | | | | + + + + + + + + | Specimen | + + | Bone marrow - Bone | | marrow | + + + + + + + | Performing | Address | City/State/Zipcode | Phone Number | | Organization | | | | + + + + + | [facility] | [address] | [place] [address] | | | PATHOLOGY | [address] | | | + + + + + MANUAL DIFFERENTIAL (07/07/2015 11:40 PM PST) + + + + + + | Component | Value | Ref Range | Performed | Pathologist | | | | | At | Signature | + + + + + + | NEUTROPHIL | 0.0 (L) | 50.0 - 70.0 % | [facility] | | | % | | | LABORATORY | | | | | | SERVICES, | | | | | | CORE | | + + + + + + | LYMPHOCYTE | 47.9 (H) | 18.0 - 42.0 % | [facility] | | | % | | | LABORATORY | | | | | | SERVICES, | | | | | | CORE | | + + + + + + | MONOCYTE % | 45.5 (H) | 3.5 - 9.0 % | [...] + + + + | ATYPICAL | 1.6 (H) | 0.0 % | [facility] | | | CELL % | | | LABORATORY | | | | | | SERVICES, | | | | | | CORE | | + + + + + + | REACTIVE | 5.0 | 0.0 - 10.0 % | [facility] | | | LYMPHS % | | | LABORATORY | | | | | | SERVICES, | | | | | | CORE | | + + + + + + | NEUTROPHIL | 0.00 (L) | 1.80 - 7.70 | [facility] [...] + + + | MONOCYTE # | 0.27 | 0.10 - 0.90 | [facility] | [...] + + + + | ATYPICAL | 0.01 | K/cu mm | [facility] | | | CELLS # | | | LABORATORY | | | | | | SERVICES, | | | | | | CORE | | + + + + + + | REACTIVE | 0.03 | K/cu mm | [facility] | | [...] [facility] | [address] | [place] [address] | | | SERVICES, CORE | [address] | | | + + + + + CBC AND AUTO DIFF (07/07/2015 11:40 PM PST) + + + + + + | Component | Value | Ref Range | Performed | Pathologist | | | | | At | Signature | + + + + + + | WHITE CELL | 0.60 (L) | 4.40 - 11.00 | [facility] | | | COUNT | | K/cu mm | LABORATORY | | | | | | SERVICES, | | | | | | CORE | | + + + + + + | RED CELL | 2.77 (L) | 4.50 - 6.00 | [facility] [...] + + + + | MCV | 81.2 | 80.0 - 96.0 fL | [facility] [...] + + + | RDW SD | 33.9 (L) | 35.1 - 46.3 fL | [...] + + + + | MPV | 9.7 | 9.7 - 12.3 fL [...] [facility] | [address] | [place] [address] | | | KOLE, CORE | [address] | | | + + + + + URIC ACID, PLASMA (07/07/2015 11:40 PM PST) + +---------+ + + + | Component | Value | Ref Range | Performed | Pathologist | | | | | At | Signature | + +---------+ + + + | URIC ACID, | 3.4 (L) | 3.7 - 8.0 mg/dL | [...] [facility] | [address] | [place] [address] | | | SERVICES, CORE | [address] | | | + + + + + LDH TOTAL, PLASMA (07/07/2015 11:40 PM PST) + +---------+ + + + [...] + | [facility] | [address] | [place] [address] | | | SERVICES, CORE | [address] | | | + + + + + PHOSPHORUS, PLASMA (07/07/2015 11:40 PM PST) + +---------+ + + + | Component | Value | Ref Range | Performed | Pathologist | | | | | At | Signature | + +---------+ + + + | PHOSPHORUS, | 4.9 (H) | 2.4 - 4.7 mg/dL | [...] [facility] | [address] | [place] [address] | | | SERVICES, CORE | [address] | | | + + + + + MAGNESIUM, PLASMA (07/07/2015 11:40 PM PST) + +-------+ + + + | Component | Value | Ref Range | Performed | Pathologist | | | | | At | Signature | + +-------+ + + + | MAGNESIUM,P | 1.8 | 1.8 - 2.5 mg/dL | [facility] | | | CHRISSYMA | | | [...] [facility] | [address] | [place] [address] | | | SERVICES, CORE | [address] | | | + + + + + COMPLETE METABOLIC SET (NA,K,CL,CO2,BUN,CREAT,GLUC,CA,AST,ALT,BILI TOTAL,ALK PHOS,ALB,PROT TOTAL) (07/07/2015 11:40 PM PST) + +---------+ + + + [...] | | | LABORATORY | | | [facility] | | | SERVICES, | | | [...] + + + | ALT (SGPT) | 48 | <=60 U/L | [facility] | | [...] the MDRD equation recommended by the | [facility] | | National Kidney Disease Education Program. [...] [facility] | [address] | [place] [address] | | | SERVICES, CORE | [address] | | | + + + + + 12 LEAD ECG (07/07/2015 4:58 PM PST) + + + + + + | Component | Value | Ref Range | Performed | Pathologist | | | | | At | Signature | + + + + + + | VENTRICULAR | 69 | bpm | [facility] | | | RATE | | | OF | | | | | | CARDIOLOGY | | + + + + + + | ATRIAL RATE | 72 | bpm | [facility] | | | | | | OF | | | | | | CARDIOLOGY | | + + + + + + | P-R | 168 | ms | [facility] | | | INTERVAL | | | OF | | | | | | CARDIOLOGY | | + + + + + + | P AXIS | 69 | deg | [facility] | | | | | | OF | | | | | | CARDIOLOGY | | + + + + + + | QRS | 102 | ms | [facility] | | | DURATION | | | OF | | | | | | CARDIOLOGY | | + + + + + + | QT | 420 | ms | [facility] | | | | | | OF | | | | | | CARDIOLOGY | | + + + + + + | QTCB | 450 | ms | [facility] | | | | | | OF | | | | | | CARDIOLOGY | | + + + + + + | R AXIS | -53 | deg | [facility] | | | | | | OF | | | | | | CARDIOLOGY | | + + + + + + | T AXIS | 57 | deg | [facility] | | | | | | OF | | | | | | CARDIOLOGY | | + + + + + + | ECG | SINUS RHYTHM- NORMAL ECG | | [facility] | | | IMPRESSION | -Electronically signed | | OF | | | | by: KATHIE WILKINSON | | CARDIOLOGY | | | | 07-09-2015 10:12:22 | | | | + + + [...] DEPT OF | [address] | [place], [place] | | | CARDIOLOGY | [address] | [phone] | | + + + + + MANUAL DIFFERENTIAL (07/07/2015 12:30 AM PST) + + + + [...] + + + + | LYMPHOCYTE | 64.1 (H) | 18.0 - 42.0 % | [facility] | | | % | | | LABORATORY | | | | | | SERVICES, | | | | | | CORE | | + + + + + + | MONOCYTE % | 25.2 (H) | 3.5 - 9.0 % | [...] + + + + | ATYPICAL | 2.9 (H) | 0.0 % | [facility] | | | CELL % | | | LABORATORY | | | | | | SERVICES, | | | | | | CORE | | + + + + + + | REACTIVE | 4.9 | 0.0 - 10.0 % | [facility] [...] + + + + | LYMPHOCYTE | 0.34 (L) | 1.00 - 4.80 | [facility] | | | # | | K/cu mm | LABORATORY | | | | | | SERVICES, | | | | | | CORE | | + + + + + + | MONOCYTE # | 0.13 | 0.10 - 0.90 | [facility] | [...] + + + + | REACTIVE | 0.03 | K/cu mm | [facility] | | [...] [facility] | [address] | [place] [address] | | | SERVICES, CORE | [address] | | | + + + + + CBC AND AUTO DIFF (07/07/2015 12:30 AM PST) + + + + + + | Component | Value | Ref Range | Performed | Pathologist | | | | | At | Signature | + + + + + + | WHITE CELL | 0.53 (L) | 4.40 - 11.00 | [facility] | | | COUNT | | K/cu mm | LABORATORY | | | | | | SERVICES, | | | | | | CORE | | + + + + + + | RED CELL | 2.70 (L) | 4.50 - 6.00 | [facility] | | | COUNT | | M/cu mm | LABORATORY | | | | | | SERVICES, | | | | | | CORE | | + + + + + + | HEMOGLOBIN | 8.0 (L) | 13.5 - 17.5 | [facility] | | | | | g/dL | LABORATORY | | | | | | SERVICES, | | | | | | CORE | | + + + + + + | HEMATOCRIT | 22.2 (L) | 41.0 - 53.0 % | [facility] | | | | | | LABORATORY | | | | | | SERVICES, | | | | | | CORE | | + + + + + + | MCV | 82.2 | 80.0 - 96.0 fL | [facility] [...] [facility] | [address] | [place] [address] | | | [place], CORE | [address] | | | + + + + + PHOSPHORUS, PLASMA (07/07/2015 12:30 AM PST) + +-------+ + + + | Component | Value | Ref Range | Performed | Pathologist | | | | | At | Signature | + +-------+ + + + | PHOSPHORUS, | 4.4 | 2.4 - 4.7 mg/dL | [facility] [...] + + + + + | [facility] | [address] | [place] [address] | | | SERVICES, CORE | [address] | | | + + + + + MAGNESIUM, PLASMA (07/07/2015 12:30 AM PST) + +-------+ + + + [...] + | [facility] | [address] | [place] [address] | | | SERVICES, CORE | [address] | | | + + + + + COMPLETE METABOLIC SET (NA,K,CL,CO2,BUN,CREAT,GLUC,CA,AST,ALT,BILI TOTAL,ALK PHOS,ALB,PROT TOTAL) (07/07/2015 12:30 AM PST) + +---------+ + + + [...] + + + | BUN, PLASMA | 15 | 6 - 20 mg/dL | [facility] | | | (LAB) | | | LABORATORY | | | | | | SERVICES, | | | | | | CORE | | + +---------+ + + + | CREATININE | 0.85 | 0.70 - 1.30 | [facility] | | | PLASMA | | mg/dL | LABORATORY | | | (LAB) | | | SERVICES, | | | | | | CORE | | + +---------+ + + + | EGFR | >60 | >60 mL/min | [facility] | | | - | | | LABORATORY | | | [facility] | | | SERVICES, | | | [...] +---------+ + + + | CALCIUM, | 8.9 | 8.6 - 10.2 | [facility] | [...] + + + | ALT (SGPT) | 45 | <=60 U/L | [facility] | | [...] [facility] | [address] | [place] [address] | | | SERVICES, CORE | [address] | | | + + + + + RBC MORPHOLOGY (07/05/2015 11:11 PM PST) + + + + + [...] [facility] | [address] | [place] [address] | | | SERVICES, CORE | [address] | | | + + + + + MANUAL DIFFERENTIAL (07/05/2015 11:11 PM PST) + + + + + + | Component | Value | Ref Range | Performed | Pathologist | | | | | At | Signature | + + + + + + | NEUTROPHIL | 1.5 (L) | 50.0 - 70.0 % | [facility] | | | % | | | LABORATORY | | | | | | SERVICES, | | | | | | CORE | | + + + + + + | LYMPHOCYTE | 58.3 (H) | 18.0 - 42.0 % | [facility] | | | % | | | LABORATORY | | | | | | SERVICES, | | | | | | CORE | | + + + + + + | MONOCYTE % | 37.9 (H) | 3.5 - 9.0 % | [...] + + + + | ATYPICAL | 2.3 (H)Comment: Atypical | 0.0 % | [facility] | | | CELL % | Cells with fine | | LABORATORY | | | | chromatin, high N-C | | SERVICES, | | | | ratio, prominent | | CORE | | | | nucleoli and dark blue | | | | | | cytoplasm. | | | | + + + + + + | NEUTROPHIL | 0.01 (L) | 1.80 - 7.70 | [facility] | | | # | | K/cu mm | LABORATORY | | | | | | SERVICES, | | | | | | CORE | | + + + + + + | LYMPHOCYTE | 0.33 (L) | 1.00 - 4.80 | [facility] | | | # | | K/cu mm | LABORATORY | | | | | | SERVICES, | | | | | | CORE | | + + + + + + | MONOCYTE # | 0.21 | 0.10 - 0.90 | [facility] | [...] + + + + | ATYPICAL | 0.01 | K/cu mm | [facility] | | [...] + | [facility] | [address] | [place] [address] | | | SERVICES, CORE | [address] | | | + + + + + CBC AND AUTO DIFF (07/05/2015 11:11 PM PST) + + + + + + | Component | Value | Ref Range | Performed | Pathologist | | | | | At | Signature | + + + + + + | WHITE CELL | 0.56 (L) | 4.40 - 11.00 | [facility] | | | COUNT | | K/cu mm | LABORATORY | | | | | | SERVICES, | | | | | | CORE | | + + + + + + | RED CELL | 2.69 (L) | 4.50 - 6.00 | [facility] | | | COUNT | | M/cu mm | LABORATORY | | | | | | SERVICES, | | | | | | CORE | | + + + + + + | HEMOGLOBIN | 8.0 (L) | 13.5 - 17.5 [...] + + + + | MPV | 9.0 (L) | 9.7 - 12.3 fL | [...] [facility] | [address] | [place] [address] | | | SERVICES, CORE | [address] | | | + + + + + PHOSPHORUS, PLASMA (07/05/2015 11:11 PM PST) + +-------+ + + + [...] + | [facility] | [address] | [place] [address] | | | SERVICES, CORE | [address] | | | + + + + + MAGNESIUM, PLASMA (07/05/2015 11:11 PM PST) + +-------+ + + + [...] [facility] | [address] | [place] [address] | | | SERVICES, CORE | [address] | | | + + + + + COMPLETE METABOLIC SET (NA,K,CL,CO2,BUN,CREAT,GLUC,CA,AST,ALT,BILI TOTAL,ALK PHOS,ALB,PROT TOTAL) (07/05/2015 11:11 PM PST) + +---------+ + + + | Component | Value | Ref Range | Performed | Pathologist | | | | | At | Signature | + +---------+ + + + | GLUCOSE, | 116 [...] +---------+ + + + | CREATININE | 0.93 | 0.70 - 1.30 | [facility] | | | PLASMA | | mg/dL | LABORATORY | | | (LAB) | | | SERVICES, | | | | | | CORE | | + +---------+ + + + | EGFR | >60 | >60 mL/min | [facility] | | | - | | | LABORATORY | | | [facility] | | | SERVICES, | | | [...] + | [facility] | [address] | [place] [address] | | | INDRA SHARIF | [address] | | | + + + + + RBC MORPHOLOGY (07/05/2015 12:10 AM PST) + + | Specimen | + + | Blood - Blood | | (substance) | + + + + + + + | Performing | Address | City/State/Zipcode | Phone Number | | Organization | | | | + + + + + | [facility] | [address] | [place] [address] | | | SERVICES, INDRA | [address] | | | + + + + + MANUAL DIFFERENTIAL (07/05/2015 12:10 AM PST) + + + + + + | Component | Value | Ref Range | Performed | Pathologist | | | | | At | Signature | + + + + + + | NEUTROPHIL | 3.1 (L) | 50.0 - 70.0 % | [facility] | | | % | | | LABORATORY | | | | | | SERVICES, | | | | | | CORE | | + + + + + + | LYMPHOCYTE | 42.6 (H) | 18.0 - 42.0 % | [facility] | | | % | | | LABORATORY | | | | | | SERVICES, | | | | | | CORE | | + + + + + + | MONOCYTE % | 53.5 (H)Comment: Some | 3.5 - 9.0 % [...] + + + + | LYMPHOCYTE | 0.23 (L) | 1.00 - 4.80 | [facility] | | | # | | K/cu mm | LABORATORY | | | | | | SERVICES, | | | | | | CORE | | + + + + + + | MONOCYTE # | 0.28 | 0.10 - 0.90 | [facility] | [...] + + + + + | [facility] | [address] | [place] [address] | | | SERVICES, CORE | [address] | | | + + + + + CBC AND AUTO DIFF (07/05/2015 12:10 AM PST) + + + + + + | Component | Value | Ref Range | Performed | Pathologist | | | | | At | Signature | + + + + + + | WHITE CELL | 0.53 (L) | 4.40 - 11.00 | [facility] [...] + + + + | MCHC | 35.6 | 33.0 - 35.5 | [facility] | | | | | g/dL | LABORATORY | | | | | | SERVICES, | | | | | | CORE | | + + + + + + | RDW SD | 35.0 (L) | 35.1 - 46.3 fL | [facility] | | | | | | LABORATORY | | | | | | SERVICES, | | | | | | CORE | | + + + + + + | PLATELET | 17 (L) | 150 - 400 K/cu | [...] + | [facility] | [address] | [place] [address] | | | SERVICES, CORE | [address] | | | + + + + + URIC ACID, PLASMA (07/05/2015 12:10 AM PST) + +-------+ + + + [...] [facility] | [address] | [place] [address] | | | SERVICES, CORE | [address] | | | + + + + + LDH TOTAL, PLASMA (07/05/2015 12:10 AM PST) + +---------+ + + + | Component | Value | Ref Range | Performed | Pathologist | | | | | At | Signature | + +---------+ + + + | LD TOTAL, | 191 | <=250 U/L | [facility] | | [...] [facility] | [address] | [place] [address] | | | SERVICES, CORE | [address] | | | + + + + + PHOSPHORUS, PLASMA (07/05/2015 12:10 AM PST) + +-------+ + + + [...] + | [facility] | [address] | [place] [address] | | | SERVICES, CORE | [address] | | | + + + + + MAGNESIUM, PLASMA (07/05/2015 12:10 AM PST) + +-------+ + + + [...] [facility] | [address] | [place] [address] | | | SERVICES, CORE | [address] | | | + + + + + COMPLETE METABOLIC SET (NA,K,CL,CO2,BUN,CREAT,GLUC,CA,AST,ALT,BILI TOTAL,ALK PHOS,ALB,PROT TOTAL) (07/05/2015 12:10 AM PST) + +---------+ + + + [...] +---------+ + + + | CREATININE | 1.13 | 0.70 - 1.30 | [facility] | | | PLASMA | | mg/dL | LABORATORY | | | (LAB) | | | SERVICES, | | | | | | CORE | | + +---------+ + + + | EGFR | >60 | >60 mL/min | [facility] | | | - | | | LABORATORY | | | DUTCH | | | SERVICES, | | | [...] 4.5 | 3.4 - 5.0 | [facility] | [...] +---------+ + + + | CALCIUM, | 8.9 | 8.6 - 10.2 | [facility] | [...] + | [facility] | [address] | [place] [address] | | | SERVICES, INDRA | [address] | | | + + + + + PRODUCT - RED CELLS LEUKOREDUCED (07/04/2015 1:51 AM PST) + + + + + [...] + + + + | PRODUCT | [id number] | | [facility] | | | UNIT [...] + + + + | EXPIRATION | [id number] | | [facility] | | | DATE [...] + + + + | BLOOD | [id number] | | [facility] | | | PRODUCT [...] | + + + + + | [facility] | [address] | [place] [address] | | | PATHOLOGY | [address] | | | + + + + + CBC AND AUTO DIFF (07/04/2015 12:31 AM PST) + + + + + + | Component | Value | Ref Range | Performed | Pathologist | | | | | At | Signature | + + + + + + | WHITE CELL | 0.45 (L) | 4.40 - 11.00 | [facility] | | | COUNT | | K/cu mm | LABORATORY | | | | | | SERVICES, | | | | | | CORE | | + + + + + + | RED CELL | 2.42 (L) | 4.50 - 6.00 | [facility] [...] + + + + | HEMATOCRIT | 20.0 (L) | 41.0 - 53.0 % | [facility] | | | | | | LABORATORY | | | | | | SERVICES, | | | | | | CORE | | + + + + + + | MCV | 82.6 | 80.0 - 96.0 fL | [facility] [...] + + + | RDW SD | 35.1 | 35.1 - 46.3 fL | [facility] [...] + + + + | MPV | 9.3 (L) | 9.7 - 12.3 [...] + + + + | NEUTROPHIL | 2.2 (L) | 50.0 - 70.0 % | [facility] | | | % | | | LABORATORY | | | | | | SERVICES, | | | | | | CORE | | + + + + + + | LYMPHOCYTE | 62.2 (H) | 18.0 - 42.0 % | [facility] | | | % | | | LABORATORY | | | | | | SERVICES, | | | | | | CORE | | + + + + + + | MONOCYTE % | 35.6 (H) | 3.5 - 9.0 % | [...] + + + + | LYMPHOCYTE | 0.28 (L) | 1.00 - 4.80 | [facility] | | | # | | K/cu mm | LABORATORY | | | | | | SERVICES, | | | | | | CORE | | + + + + + + | MONOCYTE # | 0.16 | 0.10 - 0.90 | [facility] | [...] [facility] | [address] | [place] [address] | | | INDRA SHARIF | [address] | | | + + + + + PHOSPHORUS, PLASMA (07/04/2015 12:31 AM PST) + +-------+ + + + [...] + + + + + | [facility] | [address] | [place] [address] | | | SERVICES, CORE | [address] | | | + + + + + MAGNESIUM, PLASMA (07/04/2015 12:31 AM PST) + +-------+ + + + [...] + | [facility] | [address] | [place] [address] | | | SERVICES, CORE | [address] | | | + + + + + COMPLETE METABOLIC SET (NA,K,CL,CO2,BUN,CREAT,GLUC,CA,AST,ALT,BILI TOTAL,ALK PHOS,ALB,PROT TOTAL) (07/04/2015 12:31 AM PST) + +---------+ + + + [...] +---------+ + + + | CREATININE | 1.17 | 0.70 - 1.30 | [facility] | | | PLASMA | | mg/dL | LABORATORY | | | (LAB) | | | SERVICES, | | | | | | CORE | | + +---------+ + + + | EGFR | >60 | >60 mL/min | [facility] | | | - | | | LABORATORY | | | DUTCH | | | SERVICES, | | | [...] + + + | ALK PHOS | 72 | 53 - 128 U/L | [facility] [...] + + + + + | [facility] | [address] | [place] [address] | | | SERVICES, CORE | [address] | | | + + + + + PRODUCT - RED CELLS LEUKOREDUCED (07/03/2015 12:10 PM PST) + + + + [...] + + + + | PRODUCT | [id number] | | [facility] | | | UNIT [...] + + + + | EXPIRATION | [id number] | | [facility] | | | DATE [...] + + + + | BLOOD | [id number] | | [facility] | | | PRODUCT [...] + + + + + | [facility] | [address] | [place] [address] | | | PATHOLOGY | [address] | | | + + + + + TRANSFUSION REACTION (07/03/2015 8:21 AM PST) + + + + + [...] + | [facility] | [address] | [place] [address] | | | SERVICES, | [address] | | | | TRANSFUSION MEDICINE | | | | + + + + + PRODUCT - PLATELET PHERESIS LEUKOREDUCED (07/03/2015 4:14 AM PST) + + + + + [...] + + + + | PRODUCT | [id number] | | [facility] | | | UNIT [...] + + + + | EXPIRATION | [id number] | | [facility] | | | DATE [...] + + + + | BLOOD | [id number] | | [facility] | | | PRODUCT [...] | + + + + + | [facility] | [address] | [place] [address] | | | PATHOLOGY | [address] | | | + + + + + PRODUCT - RED CELLS LEUKOREDUCED (07/03/2015 4:14 AM PST) + + + + + [...] + + + + | PRODUCT | [id number] | | [facility] | | | UNIT [...] + + + + | EXPIRATION | [id number] | | [facility] | | | DATE [...] + + + + | BLOOD | [id number] | | [facility] | | | PRODUCT [...] | + + + + + | [facility] | [address] | [place] [address] | | | PATHOLOGY | [address] | | | + + + + + ANTIBODY SCREEN (07/03/2015 3:21 AM PST) + + + + + [...] [facility] | [address] | [place] [address] | | | SERVICES, | [address] | | | | TRANSFUSION MEDICINE | | | | + + + + + ABO & RH TYPE (07/03/2015 3:21 AM PST) + + + + + [...] [facility] | [address] | [place] [address] | | | SERVICES, | [address] | | | | TRANSFUSION MEDICINE | | | | + + + + + CBC AND AUTO DIFF (07/03/2015 12:08 AM PST) + + + + + + | Component | Value | Ref Range | Performed | Pathologist | | | | | At | Signature | + + + + + + | WHITE CELL | 0.34 (L) | 4.40 - 11.00 | [facility] | | | COUNT | | K/cu mm | LABORATORY | | | | | | SERVICES, | | | | | | CORE | | + + + + + + | RED CELL | 2.46 (L) | 4.50 - 6.00 | [facility] [...] + + + + | HEMATOCRIT | 20.5 (L) | 41.0 - 53.0 % | [...] + + + | RDW SD | 35.3 | 35.1 - 46.3 fL | [facility] [...] [facility] | [address] | [place] [address] | | | SERVICES, CORE | [address] | | | + + + + + PHOSPHORUS, PLASMA (07/03/2015 12:08 AM PST) + +-------+ + + + [...] + | [facility] | [address] | [place] [address] | | | SERVICES, CORE | [address] | | | + + + + + MAGNESIUM, PLASMA (07/03/2015 12:08 AM PST) + +-------+ + + + [...] [facility] | [address] | [place] [address] | | | SERVICES, CORE | [address] | | | + + + + + COMPLETE METABOLIC SET (NA,K,CL,CO2,BUN,CREAT,GLUC,CA,AST,ALT,BILI TOTAL,ALK PHOS,ALB,PROT TOTAL) (07/03/2015 12:08 AM PST) + +---------+ + + + | Component | Value | Ref Range | Performed | Pathologist | | | | | At | Signature | + +---------+ + + + | GLUCOSE, | 99 | 60 - 99 mg/dL | [facility] [...] +---------+ + + + | CREATININE | 1.13 | 0.70 - 1.30 | [facility] | | | PLASMA | | mg/dL | LABORATORY | | | (LAB) | | | SERVICES, | | | | | | CORE | | + +---------+ + + + | EGFR | >60 | >60 mL/min | [facility] | | | - | | | LABORATORY | | | DUTCH | | | SERVICES, | | | [...] +---------+ + + + | AST(SGOT) | 27 | <=41 U/L | [facility] | | [...] + + + + + | [facility] | [address] | [place] [address] | | | KOLE, INDRA | [address] | | | + + + + + CULTURE, URINE [facility] (07/02/2015 9:05 AM PST) + + + + + + | Component | Value | Ref Range | Performed | Pathologist | | | | | At | Signature | + + + + + + | URINE | Insignificant growth | | [facility] | | | CULTURE | (<10,000 cfu/mL) | | LABORATORY | | | [facility] [...] [facility] | [address] | [place] [address] | | | SERVICES, CORE | [address] | | | + + + + + SODIUM TOTAL, URINE (07/02/2015 9:05 AM PST) + +--------+ + + + | Component | Value | Ref Range | Performed | Pathologist | | | | | At | Signature | + +--------+ + + + | SODIUM CONC | 52 | mmol/L | [facility] | | | URINE | | | LABORATORY | | | | | | SERVICES, | | | | | | CORE | | + +--------+ + + + | URINE | Random | | [facility] | | | INTERVAL | | | LABORATORY | | | | | | SERVICES, | | | | | | CORE | | + +--------+ + + + | URINE | Spot | | [facility] | | | VOLUME | | | LABORATORY | | | | | | SERVICES, | | | | | | CORE | | + +--------+ + + + + + | Specimen | + + | Urine - Urine | | (substance) | + + + + + | Narrative | Performed At | + + + | Normal values based on 24 hour collection interval. Patient | [facility] | | results are calculated from actual collection interval and volume. | LABORATORY | | | SERVICES, CORE | + + + + + + + + | Performing | Address | City/State/Zipcode | Phone Number | | Organization | | | | + + + + + | [facility] | [address] | [place] [address] | | | SERVICES, CORE | [address] | | | + + + + + PROTEIN, URINE (07/02/2015 9:05 AM PST) + +--------+ + + + | Component | Value | Ref Range | Performed | Pathologist | | | | | At | Signature | + +--------+ + + + | PROTEIN | 9 | mg/dL | [facility] | | | CONC URINE | | | LABORATORY | | | | | | SERVICES, | | | | | | CORE | | + +--------+ + + + | PROTEIN/CRE | 0.07 | <0.10 mg/mg | [facility] | | | ATININE | | | LABORATORY | | | RATIO | | | SERVICES, | | | | | | CORE | | + +--------+ + + + | URINE | Random | | [facility] | | | INTERVAL | | | LABORATORY | | | | | | SERVICES, | | | | | | CORE | | + +--------+ + + + | URINE | Spot | | [facility] | | | VOLUME | | | LABORATORY | | | | | | SERVICES, | | | | | | CORE | | + +--------+ + + + + + | Specimen | + + | Urine - Urine | | (substance) | + + + + + | Narrative | Performed At | + + + | Normal values based on 24 hour collection interval. Patient | [facility] | | results are calculated from actual collection interval and volume. | LABORATORY | | | INDRA SHARIF | + + + + + + + + | Performing | Address | City/State/Zipcode | Phone Number | | Organization | | | | + + + + + | [facility] | [address] | [place] [address] | | | SERVICES, INDRA | [address] | | | + + + + + EOSINOPHILS, URINE (SPOT) (07/02/2015 9:05 AM PST) + +-------+ + + + | Component | Value | Ref Range | Performed | Pathologist | | | | | At | Signature | + +-------+ + + + | URINE | <1 | <1 % | [facility] | | | EOSINOPHILS | | | LABORATORY | | | [...] [facility] | [address] | [place] [address] | | | SERVICES, CORE | [address] | | | + + + + + CREATININE, URINE (07/02/2015 9:05 AM PST) + +--------+ + + + | Component | Value | Ref Range | Performed | Pathologist | | | | | At | Signature | + +--------+ + + + | CREATININE | 121.00 | mg/dL | [facility] | | | CONC UR | | | LABORATORY | | | | | | SERVICES, | | | | | | CORE | | + +--------+ + + + | URINE | Random | | [facility] | | | INTERVAL | | | LABORATORY | | | | | | SERVICES, | | | | | | CORE | | + +--------+ + + + | URINE | Spot | | [facility] | | | VOLUME | | | LABORATORY | | | | | | SERVICES, | | | | | | CORE | | + +--------+ + + + + + | Specimen | + + | Urine - Urine | | (substance) | + + + + + | Narrative | Performed At | + + + | Normal values based on 24 hour collection interval. Patient | [facility] | | results are calculated from actual collection interval and volume. | LABORATORY | | | SERVICES, CORE | + + + + + + + + | Performing | Address | City/State/Zipcode | Phone Number | | Organization | | | | + + + + + | [facility] | [address] | [place] [address] | | | SERVICES, CORE | [address] | | | + + + + + CLAIRE ANSARI ONLY (07/02/2015 9:05 AM PST) + + + + + + | Component | Value | Ref Range | Performed | Pathologist | | | | | At | Signature | + + + + + + | COLOR(UR) | Yellow | | [facility] | | | | [...] + + + + | PH(UR) | 6.0 | 5.0 - 8.0 | [facility] | | | | | | LABORATORY | | | | | | SERVICES, | | | | | | CORE | | + + + + + + | BLOOD | Negative | Negative | [facility] | [...] + + + + | SPECIFIC | 1.013 | 1.005 - 1.030 | [facility] | [...] + + | [facility] | [address] | [place] [address] | | | SERVICES, CORE | [address] | | | + + + + + URINE, MICROSCOPIC EXAM (07/02/2015 9:05 AM PST) + +---------+ + + + [...] + + + | WHITE CELLS | 0 | 0 - 5 /hpf | [facility] | | | | | | LABORATORY | | | | | | SERVICES, | | | | | | CORE | | + +---------+ + + + | BACTERIA | Few (A) | None /hpf | [...] +---------+ + + + | SQUAMOUS | None [...] +---------+ + + + | NON-SQUAMOU | Few (A) | None /hpf | [...] [facility] | [address] | [place] [address] | | | SERVICES, CORE | [address] | | | + + + + + URINE SCREEN FOR CULTURE (07/02/2015 9:05 AM PST) + + + + + + | Component | Value | Ref Range | Performed | Pathologist | | | | | At | Signature | + + + + + + | URINE | Positive (A) | Negative | [facility] | | | SCREEN FOR | | | LABORATORY | | | CULTURE | | | SERVICES, | | | | | | CORE | | + + + + + + + + | Specimen | + + | Urine - Urine | | (substance) | + + + + + | Narrative | Performed At | + + + | Culture Screen Positive, specimen sent for culture. | [facility] | | | LABORATORY | | | SERVICES, CORE | + + + + + + + + | Performing | Address | City/State/Zipcode | Phone Number | | Organization | | | | + + + + + | [facility] | [address] | [place] [address] | | | SERVICES, CORE | [address] | | | + + + + + URIC ACID, PLASMA (07/01/2015 11:57 PM PST) + +-------+ + + + | Component | Value | Ref Range | Performed | Pathologist | | | | | At | Signature | + +-------+ + + + | URIC ACID, | 5.2 | 3.7 - 8.0 mg/dL | [facility] [...] + | [facility] | [address] | [place] [address] | | | SERVICES, CORE | [address] | | | + + + + + CBC AND AUTO DIFF (07/01/2015 11:57 PM PST) + + + + + + | Component | Value | Ref Range | Performed | Pathologist | | | | | At | Signature | + + + + + + | WHITE CELL | 0.39 (L) | 4.40 - 11.00 | [facility] | | | COUNT | | K/cu mm | LABORATORY | | | | | | SERVICES, | | | | | | CORE | | + + + + + + | RED CELL | 2.61 (L) | 4.50 - 6.00 | [facility] [...] + + + + | HEMATOCRIT | 21.7 (L) | 41.0 - 53.0 % | [facility] | | | | | | LABORATORY | | | | | | SERVICES, | | | | | | CORE | | + + + + + + | MCV | 83.1 | 80.0 - 96.0 fL | [facility] [...] + + + | RDW SD | 34.8 (L) | 35.1 - 46.3 fL | [...] + + + + | NEUTROPHIL | 2.6 (L) | 50.0 - 70.0 % | [facility] | | | % | | | LABORATORY | | | | | | SERVICES, | | | | | | CORE | | + + + + + + | LYMPHOCYTE | 53.8 (H) | 18.0 - 42.0 % | [facility] | | | % | | | LABORATORY | | | | | | SERVICES, | | | | | | CORE | | + + + + + + | MONOCYTE % | 43.6 (H) | 3.5 - 9.0 % | [...] + + + | MONOCYTE # | 0.17 | 0.10 - 0.90 | [facility] | [...] + + + + + | [facility] | [address] | [place] [address] | | | SERVICES, CORE | [address] | | | + + + + + PHOSPHORUS, PLASMA (07/01/2015 11:57 PM PST) + +-------+ + + [...] + + + + + | [facility] | [address] | [place] [address] | | | SERVICES, CORE | [address] | | | + + + + + MAGNESIUM, PLASMA (07/01/2015 11:57 PM PST) + +-------+ + + + | Component | Value | Ref Range | Performed | Pathologist | | | | | At | Signature | + +-------+ + + + | MAGNESIUM,P | 1.8 | 1.8 - 2.5 mg/dL | [facility] | | | LASMA | | | [...] + | [facility] | [address] | [place] [address] | | | SERVICES, CORE | [address] | | | + + + + + COMPLETE METABOLIC SET (NA,K,CL,CO2,BUN,CREAT,GLUC,CA,AST,ALT,BILI TOTAL,ALK PHOS,ALB,PROT TOTAL) (07/01/2015 11:57 PM PST) + + + + + + | Component | Value | Ref Range | Performed | Pathologist | | | | | At | Signature | + + + + + + | GLUCOSE, | 117 [...] | | | LABORATORY | | | DUTCH | | | SERVICES, | | | [...] + + + + | CHLORIDE, | 105 [...] + + + + | CALCIUM, | 8.9 | 8.6 - 10.2 | [facility] | [...] + + + + | ALBUMIN, | 3.8 [...] + + + + | AST(SGOT) | 22 [...] + + + + | ANION | 6 [...] + + | [facility] | [address] | [place] [address] | | | SERVICES, CORE | [address] | | | + + + + + VRE (DIAZ) BY PCR (07/01/2015 12:00 PM PST) + + + + + [...] + | [facility] | [address] | [place] [address] | | | SERVICES, CORE | [address] | | | + + + + + CBC AND AUTO DIFF (07/01/2015 12:08 AM PST) + + + + + + | Component | Value | Ref Range | Performed | Pathologist | | | | | At | Signature | + + + + + + | WHITE CELL | 0.37 (L) | 4.40 - 11.00 | [facility] | | | COUNT | | K/cu mm | LABORATORY | | | | | | SERVICES, | | | | | | CORE | | + + + + + + | RED CELL | 2.70 (L) | 4.50 - 6.00 | [facility] [...] + + + + | PLATELET | 23 (L) | 150 - 400 K/cu | [...] + + + + | NEUTROPHIL | 0.0 (L) | 50.0 - 70.0 % | [facility] | | | % | | | LABORATORY | | | | | | SERVICES, | | | | | | CORE | | + + + + + + | LYMPHOCYTE | 59.5 (H) | 18.0 - 42.0 % | [facility] | | | % | | | LABORATORY | | | | | | SERVICES, | | | | | | CORE | | + + + + + + | MONOCYTE % | 40.5 (H) | 3.5 - 9.0 % | [...] + + + + | NEUTROPHIL | 0.00 (L) | 1.80 - 7.70 | [facility] | | | # | | K/cu mm | LABORATORY | | | | | | SERVICES, | | | | | | CORE | | + + + + + + | LYMPHOCYTE | 0.22 (L) | 1.00 - 4.80 | [facility] | | | # | | K/cu mm | LABORATORY | | | | | | SERVICES, | | | | | | CORE | | + + + + + + | MONOCYTE # | 0.15 | 0.10 - 0.90 | [facility] | [...] [facility] | [address] | [place] [address] | | | INDRA SHARIF | [address] | | | + + + + + LDH TOTAL, PLASMA (07/01/2015 12:08 AM PST) + +---------+ + + + | Component | Value | Ref Range | Performed | Pathologist | | | | | At | Signature | + +---------+ + + + | LD TOTAL, | 181 | <=250 U/L | [facility] | | [...] [facility] | [address] | [place] [address] | | | SERVICES, INDRA | [address] | | | + + + + + PHOSPHORUS, PLASMA (07/01/2015 12:08 AM PST) + +-------+ + + + [...] + | [facility] | [address] | [place] [address] | | | SERVICES, CORE | [address] | | | + + + + + MAGNESIUM, PLASMA (07/01/2015 12:08 AM PST) + +-------+ + + + [...] [facility] | [address] | [place] [address] | | | SERVICES, CORE | [address] | | | + + + + + COMPLETE METABOLIC SET (NA,K,CL,CO2,BUN,CREAT,GLUC,CA,AST,ALT,BILI TOTAL,ALK PHOS,ALB,PROT TOTAL) (07/01/2015 12:08 AM PST) + +---------+ + + [...] +---------+ + + + | CREATININE | 1.18 | 0.70 - 1.30 | [facility] | | | PLASMA | | mg/dL | LABORATORY | | | (LAB) | | | SERVICES, | | | | | | CORE | | + +---------+ + + + | EGFR | >60 | >60 mL/min | [facility] | | | - | | | LABORATORY | | | DUTCH | | | SERVICES, | | | [...] + + + + + | [facility] | [address] | [place] [address] | | | INDRA SHARIF | [address] | | | + + + + + PRODUCT - PLATELET PHERESIS LEUKOREDUCED (06/30/2015 1:14 AM PST) + + + + + [...] + + + + | PRODUCT | [id number] | | [facility] | | | UNIT [...] + + + + | EXPIRATION | [id number] | | [facility] | | | DATE [...] + + + + | BLOOD | [id number] | | [facility] | | | PRODUCT [...] + + + + + | [facility] | [address] | [place] [address] | | | PATHOLOGY | [address] | | | + + + + + PRODUCT - PLATELET PHERESIS LEUKOREDUCED (06/29/2015 11:25 PM PST) + + + + + [...] + + + + | PRODUCT | [id number] | | [facility] | | | UNIT [...] + + + + | EXPIRATION | [id number] | | [facility] | | | DATE [...] + + + + | BLOOD | [id number] | | [facility] | | | PRODUCT [...] + + + + | [facility] | [address] | [place] [address] | | | PATHOLOGY | [address] | | | + + + + + CBC AND AUTO DIFF (06/29/2015 11:10 PM PST) + + + + + + | Component | Value | Ref Range | Performed | Pathologist | | | | | At | Signature | + + + + + + | WHITE CELL | 0.28 (L) | 4.40 - 11.00 | [facility] | | | COUNT | | K/cu mm | LABORATORY | | | | | | SERVICES, | | | | | | CORE | | + + + + + + | RED CELL | 2.77 (L) | 4.50 - 6.00 | [facility] | | | COUNT | | M/cu mm | LABORATORY | | | | | | SERVICES, | | | | | | CORE | | + + + + + + | HEMOGLOBIN | 8.3 (L) | 13.5 - 17.5 | [facility] | | | | | g/dL | LABORATORY | | | | | | SERVICES, | | | | | | CORE | | + + + + + + | HEMATOCRIT | 23.3 (L) | 41.0 - 53.0 % | [facility] | | | | | | LABORATORY | | | | | | SERVICES, | | | | | | CORE | | + + + + + + | MCV | 84.1 | 80.0 - 96.0 fL | [facility] | | | | | | LABORATORY | | | | | | SERVICES, | | | | | | CORE | | + + + + + + | MCHC | 35.6 | 33.0 - 35.5 | [facility] | | | | | g/dL | LABORATORY | | | | | | SERVICES, | | | | | | CORE | | + + + + + + | RDW SD | 35.1 | 35.1 - 46.3 fL | [facility] [...] + + + + | NEUTROPHIL | 0.0 (L) | 50.0 - 70.0 % | [facility] | | | % | | | LABORATORY | | | | | | SERVICES, | | | | | | CORE | | + + + + + + | LYMPHOCYTE | Comment: This is a | 18.0 - 42.0 % | [facility] | | | % | corrected result. | | LABORATORY | | | | Previous result was 67.9 | | SERVICES, | | | | % on 06/30/2015 at 0107 | | CORE | | | | PST. | | | | + + + + + + | MONOCYTE % | Comment: This is a | 3.5 - 9.0 % | [facility] | | | | corrected result. | | LABORATORY | | | | Previous result was 32.1 | | SERVICES, | | | | % on 06/30/2015 at 0107 | | CORE | | | | PST. | | | | + + + + + + | EOS % | Comment: This is a | 1.0 - 3.0 % | [facility] | | | | corrected result. | | LABORATORY | | | | Previous result was 0.0 | | SERVICES, | | | | % on 06/30/2015 at 0107 | | CORE | | | | PST. | | | | + + + + + + | BASO % | Comment: This is a | 0.0 - 2.0 % | [facility] | | | | corrected result. | | LABORATORY | | | | Previous result was 0.0 | | SERVICES, | | | | % on 06/30/2015 at 0107 | | CORE | | | | PST. | | | | + + + + + + | IG% | Comment: Immature | 0.0 - 0.6 % | [...] | | | | | neutrophil count. This | | | | | | is a corrected result. | | | | | | Previous result was 0.0 | | | | | | % on 06/30/2015 at 0107 | | | | | | PST. | | | | + + + + + + | NEUTROPHIL | Comment: This is a | 1.80 - 7.70 | [facility] | | | # | corrected result. | K/cu mm | LABORATORY | | | | Previous result was 0.00 | | SERVICES, | | | | K/cu mm on 06/30/2015 | | CORE | | | | at 0107 PST. | | | | + + + + + + | LYMPHOCYTE | Comment: This is a | 1.00 - 4.80 | [facility] | | | # | corrected result. | K/cu mm | LABORATORY | | | | Previous result was 0.19 | | SERVICES, | | | | K/cu mm on 06/30/2015 | | CORE | | | | at 0107 PST. | | | | + + + + + + | MONOCYTE # | Comment: This is a | 0.10 - 0.90 | [facility] | | | | corrected result. | K/cu mm | LABORATORY | | | | Previous result was 0.09 | | SERVICES, | | | | K/cu mm on 06/30/2015 | | CORE | | | | at 0107 PST. | | | | + + + + + + | EOS # | Comment: This is a | 0.00 - 0.50 | [facility] | | | | corrected result. | K/cu mm | LABORATORY | | | | Previous result was 0.00 | | SERVICES, | | | | K/cu mm on 06/30/2015 | | CORE | | | | at 0110 PST. | | | | + + + + + + | BASO # | Comment: This is a | 0.00 - 0.10 | [facility] | | | | corrected result. | K/cu mm | LABORATORY | | | | Previous result was 0.00 | | SERVICES, | | | | K/cu mm on 06/30/2015 | | CORE | | | | at 0110 PST. | | | | + + + + + + | IG# | Comment: This is a | 0.00 - 0.03 | [facility] | | | | corrected result. | K/cu mm | LABORATORY | | | | Previous result was 0.00 | | SERVICES, | | | | K/cu mm on 06/30/2015 | | CORE | | | | at 0110 PST. | | | | + + + + + + + + | Specimen | + + | Blood - Blood | | (substance) | + + + + + | Narrative | Performed At | + + + | [facility] differential is not performed due to WBC < 0.5 | [facility] | | | LABORATORY | | | SERVICES, CORE | + + + + + + + + | Performing | Address | City/State/Zipcode | Phone Number | | Organization | | | | + + + + + | [facility] | [address] | [place] [address] | | | SERVICES, CORE | [address] | | | + + + + + PHOSPHORUS, PLASMA (06/29/2015 11:10 PM PST) + +-------+ + + + [...] + | [facility] | [address] | [place] [address] | | | SERVICES, INDRA | [address] | | | + + + + + MAGNESIUM, PLASMA (06/29/2015 11:10 PM PST) + +-------+ + + + [...] | + + + + + | [facility] | [address] | [place] [address] | | | SERVICES, CORE | [address] | | | + + + + + COMPLETE METABOLIC SET (NA,K,CL,CO2,BUN,CREAT,GLUC,CA,AST,ALT,BILI TOTAL,ALK PHOS,ALB,PROT TOTAL) (06/29/2015 11:10 PM PST) + +---------+ + + + [...] +---------+ + + + | CREATININE | 1.12 | 0.70 - 1.30 | [facility] | | | PLASMA | | mg/dL | LABORATORY | | | (LAB) | | | SERVICES, | | | | | | CORE | | + +---------+ + + + | EGFR | >60 | >60 mL/min | [facility] | | | - | | | LABORATORY | | | DUTCH | | | SERVICES, | | | [...] the MDRD equation recommended by the | [facility] | | National Kidney Disease Education Program. [...] + + + + + | [facility] | [address] | [place] [address] | | | INDRA SHARIF | [address] | | | + + + + + CBC AND AUTO DIFF (06/28/2015 11:15 PM PST) + + + + + + | Component | Value | Ref Range | Performed | Pathologist | | | | | At | Signature | + + + + + + | WHITE CELL | 0.25 (L) | 4.40 - 11.00 | [facility] | | | COUNT | | K/cu mm | LABORATORY | | | | | | SERVICES, | | | | | | CORE | | + + + + + + | RED CELL | 2.92 (L) | 4.50 - 6.00 | [facility] [...] + + + + | HEMATOCRIT | 24.7 (L) | 41.0 - 53.0 % | [facility] | | | | | | LABORATORY | | | | | | SERVICES, | | | | | | CORE | | + + + + + + | MCV | 84.6 | 80.0 - 96.0 fL | [facility] | | | | | | LABORATORY | | | | | | SERVICES, | | | | | | CORE | | + + + + + + | MCHC | 35.2 | 33.0 - 35.5 | [facility] | [...] [facility] | [address] | [place] [address] | | | INDRA SHARIF | [address] | | | + + + + + PHOSPHORUS, PLASMA (06/28/2015 11:15 PM PST) + +-------+ + + + | Component | Value | Ref Range | Performed | Pathologist | | | | | At | Signature | + +-------+ + + + | PHOSPHORUS, | 4.4 | 2.4 - 4.7 mg/dL | [facility] [...] + + + + + | [facility] | [address] | [place] [address] | | | SERVICES, CORE | [address] | | | + + + + + MAGNESIUM, PLASMA (06/28/2015 11:15 PM PST) + +-------+ + + + | Component | Value | Ref Range | Performed | Pathologist | | | | | At | Signature | + +-------+ + + + | MAGNESIUM,P | 2.1 | 1.8 - 2.5 mg/dL | [facility] | | | LASMA | | | [...] + | [facility] | [address] | [place] [address] | | | SERVICES, CORE | [address] | | | + + + + + COMPLETE METABOLIC SET (NA,K,CL,CO2,BUN,CREAT,GLUC,CA,AST,ALT,BILI TOTAL,ALK PHOS,ALB,PROT TOTAL) (06/28/2015 11:15 PM PST) + +---------+ + + [...] +---------+ + + + | CREATININE | 1.05 | 0.70 - 1.30 | [facility] | | | PLASMA | | mg/dL | LABORATORY | | | (LAB) | | | SERVICES, | | | | | | CORE | | + +---------+ + + + | EGFR | >60 | >60 mL/min | [facility] | | | - | | | LABORATORY | | | DUTCH | | | SERVICES, | | | [...] +---------+ + + + | AST(SGOT) | 28 | <=41 U/L | [facility] | | [...] [facility] | [address] | [place] [address] | | | SERVICES, CORE | [address] | | | + + + + + C. DIFFICILE TOXIN (06/28/2015 10:58 PM PST) + + + + + [...] + | [facility] | [address] | [place] [address] | | | SERVICES, CORE | [address] | | | + + + + + POSACONAZOLE, QUANT (06/28/2015 8:16 AM PST) + + + + + + | Component | Value | Ref Range | Performed | Pathologist | | | | | At | Signature | + + + + + + | POSACONAZOL | 0.9Comment: INTERPRETIVE | >=0.8 ug/mL | [facility] | | | E, | INFORMATION: | | REG UNIV | | | QUANTITATIO | Posaconazole, | | PTH - INTFC | | | N | Quantitative | | | | | | | | | | | | by LC-MS/MS | | | | | | Therapeutic Range | | | | | | (trough): Greater than | | | | | | 0.7 ug/mL Adverse | | | | | | effects may include | | | | | | fever, nausea, vomiting, | | | | | | diarrhea, cardiac | | | | | | arrhythmias and liver | | | | | | toxicity. Test developed | | | | | | and characteristics | | | | | | determined by [facility] | | | | | | Laboratories. See | | | | | | Compliance Statement B: | | | | | | [employer]am[employer]/CSPerformed | | | | | | by [employer] - [email or web address] | | | | | | [address] [place], [place] | | | | | | [id number] | | | | | | [phone].[employer]iv. | | | | | | [facility], [address], | | | | | [...] [facility] | [address] | [place], [place] | | | UNIV PTH - INTFC | | [address] | | + + + + + PRODUCT - PLATELET PHERESIS LEUKOREDUCED (06/28/2015 12:38 AM PST) + + + + + [...] + + + + | PRODUCT | [id number] | | [facility] | | | UNIT [...] + + + + | EXPIRATION | [id number] | | [facility] | | | DATE [...] + + + + | BLOOD | [id number] | | [facility] | | | PRODUCT [...] | + + + + + | [facility] | [address] | [place] [address] | | | PATHOLOGY | [address] | | | + + + + + CBC AND AUTO DIFF (06/27/2015 11:00 PM PST) + + + + [...] + + + | RED CELL | 2.79 (L) | 4.50 - 6.00 | [facility] [...] + + + + | HEMATOCRIT | 23.3 (L) | 41.0 - 53.0 % | [facility] | | | | | | LABORATORY | | | | | | SERVICES, | | | | | | CORE | | + + + + + + | MCV | 83.5 | 80.0 - 96.0 fL | [facility] | | | | | | LABORATORY | | | | | | SERVICES, | | | | | | CORE | | + + + + + + | MCHC | 36.1 | 33.0 - 35.5 | [facility] | [...] [facility] | [address] | [place] [address] | | | SERVICES, CORE | [address] | | | + + + + + LDH TOTAL, PLASMA (06/27/2015 11:00 PM PST) + +---------+ + + + | Component | Value | Ref Range | Performed | Pathologist | | | | | At | Signature | + +---------+ + + + | LD TOTAL, | 171 | <=250 U/L | [facility] | | [...] [facility] | [address] | [place] [address] | | | SERVICES, INDRA | [address] | | | + + + + + PHOSPHORUS, PLASMA (06/27/2015 11:00 PM PST) + +-------+ + + + | Component | Value | Ref Range | Performed | Pathologist | | | | | At | Signature | + +-------+ + + + | PHOSPHORUS, | 3.6 | 2.4 - 4.7 mg/dL | [facility] [...] + + + + + | [facility] | [address] | [place] [address] | | | SERVICES, CORE | [address] | | | + + + + + MAGNESIUM, PLASMA (06/27/2015 11:00 PM PST) + +-------+ + + [...] + | [facility] | [address] | [place] [address] | | | SERVICES, CORE | [address] | | | + + + + + COMPLETE METABOLIC SET (NA,K,CL,CO2,BUN,CREAT,GLUC,CA,AST,ALT,BILI TOTAL,ALK PHOS,ALB,PROT TOTAL) (06/27/2015 11:00 PM PST) + +---------+ + + + | Component | Value | Ref Range | Performed | Pathologist | | | | | At | Signature | + +---------+ + + + | GLUCOSE, | 135 (H) | 60 - 99 mg/dL | [...] +---------+ + + + | CREATININE | 1.02 | 0.70 - 1.30 | [facility] | | | PLASMA | | mg/dL | LABORATORY | | | (LAB) | | | SERVICES, | | | | | | CORE | | + +---------+ + + + | EGFR | >60 | >60 mL/min | [facility] | | | - | | | LABORATORY | | | DUTCH | | | SERVICES, | | | [...] +---------+ + + + | CALCIUM, | 8.9 | 8.6 - 10.2 | [facility] | [...] + + + | ALK PHOS | 68 | 53 - 128 U/L | [facility] [...] the MDRD equation recommended by the | [facility] | | National Kidney Disease Education Program. [...] + | [facility] | [address] | [place] [address] | | | SERVICES, CORE | [address] | | | + + + + + PRODUCT - PLATELET PHERESIS LEUKOREDUCED (06/27/2015 12:24 AM PST) + + + + + [...] + + + + | PRODUCT | [id number] | | [facility] | | | UNIT [...] + + + + | EXPIRATION | [id number] | | [facility] | | | DATE [...] + + + + | BLOOD | [id number] | | [facility] | | | PRODUCT [...] + + + + + | [facility] | [address] | [place] [address] | | | PATHOLOGY | [address] | | | + + + + + PRODUCT - RED CELLS LEUKOREDUCED (06/27/2015 12:24 AM PST) + + + + + [...] + + + + | PRODUCT | [id number] | | [facility] | | | UNIT [...] + + + + | EXPIRATION | [id number] | | [facility] | | | DATE [...] + + + + | BLOOD | [id number] | | [facility] | | | PRODUCT [...] [facility] | [address] | [place] [address] | | | PATHOLOGY | [address] | | | + + + + + ANTIBODY SCREEN (06/27/2015 12:24 AM PST) + + + + + [...] [facility] | [address] | [place] [address] | | | SERVICES, | [address] | | | | TRANSFUSION MEDICINE | | | | + + + + + ABO & RH TYPE (06/27/2015 12:24 AM PST) + + + + + [...] [facility] | [address] | [place] [address] | | | SERVICES, | [address] | | | | TRANSFUSION MEDICINE | | | | + + + + + CBC AND AUTO DIFF (06/26/2015 11:55 PM PST) + + + + [...] + + + | RED CELL | 2.43 (L) | 4.50 - 6.00 | [facility] [...] + + + + | MCV | 84.0 | 80.0 - 96.0 fL | [facility] [...] [facility] | [address] | [place] [address] | | | INDRA SHARIF | [address] | | | + + + + + PHOSPHORUS, PLASMA (06/26/2015 11:55 PM PST) + +-------+ + + + [...] [facility] | [address] | [place] [address] | | | SERVICES, CORE | [address] | | | + + + + + MAGNESIUM, PLASMA (06/26/2015 11:55 PM PST) + +-------+ + + + [...] + | [facility] | [address] | [place] [address] | | | SERVICES, INDRA | [address] | | | + + + + + COMPLETE METABOLIC SET (NA,K,CL,CO2,BUN,CREAT,GLUC,CA,AST,ALT,BILI TOTAL,ALK PHOS,ALB,PROT TOTAL) (06/26/2015 11:55 PM PST) + +---------+ + + [...] + + + | BUN, PLASMA | 15 | 6 - 20 mg/dL [...] | | | LABORATORY | | | DUTCH | | | SERVICES, | | | [...] + | [facility] | [address] | [place] [address] | | | SERVICES, CORE | [address] | | | + + + + + CBC AND AUTO DIFF (06/25/2015 11:30 PM PST) + + + + + + | Component | Value | Ref Range | Performed | Pathologist | | | | | At | Signature | + + + + + + | WHITE CELL | 0.13 (L) | 4.40 - 11.00 | [facility] [...] + + + + | HEMATOCRIT | 21.4 (L) | 41.0 - 53.0 % | [facility] | | | | | | LABORATORY | | | | | | SERVICES, | | | | | | CORE | | + + + + + + | MCV | 83.9 | 80.0 - 96.0 fL | [facility] [...] [facility] | [address] | [place] [address] | | | SERVICES, CORE | [address] | | | + + + + + PHOSPHORUS, PLASMA (06/25/2015 11:30 PM PST) + +-------+ + + + | Component | Value | Ref Range | Performed | Pathologist | | | | | At | Signature | + +-------+ + + + | PHOSPHORUS, | 4.6 | 2.4 - 4.7 mg/dL | [facility] [...] + | [facility] | [address] | [place] [address] | | | INDRA SHARIF | [address] | | | + + + + + MAGNESIUM, PLASMA (06/25/2015 11:30 PM PST) + +-------+ + + [...] + + | [facility] | [address] | [place] [address] | | | SERVICES, CORE | [address] | | | + + + + + COMPLETE METABOLIC SET (NA,K,CL,CO2,BUN,CREAT,GLUC,CA,AST,ALT,BILI TOTAL,ALK PHOS,ALB,PROT TOTAL) (06/25/2015 11:30 PM PST) + +---------+ + + + [...] +---------+ + + + | CREATININE | 1.01 | 0.70 - 1.30 | [facility] | | | PLASMA | | mg/dL | LABORATORY | | | (LAB) | | | SERVICES, | | | | | | CORE | | + +---------+ + + + | EGFR | >60 | >60 mL/min | [facility] | | | - | | | LABORATORY | | | DUTCH | | | SERVICES, | | | [...] +---------+ + + + | AST(SGOT) | 14 | <=41 U/L | [facility] | | [...] the MDRD equation recommended by the | [facility] | | National Kidney Disease Education Program. [...] + + + + + | [facility] | [address] | [place] [address] | | | INDRA SHARIF | [address] | | | + + + + + URIC ACID, PLASMA (06/25/2015 11:01 AM PST) + +-------+ + + + [...] [facility] | [address] | [place] [address] | | | SERVICES, CORE | [address] | | | + + + + + BASIC METABOLIC SET (NA, K, CL, TCO2, BUN, CR, GLU, CA) (06/25/2015 11:01 AM PST) + +---------+ + + + [...] | | | LABORATORY | | | DUTCH | | | SERVICES, | | | [...] + + + + + | [facility] | [address] | [place] [address] | | | SERVICES, CORE | [address] | | | + + + + + CBC AND AUTO DIFF (06/24/2015 11:00 PM PST) + + + + + + | Component | Value | Ref Range | Performed | Pathologist | | | | | At | Signature | + + + + + + | WHITE CELL | 0.17 (L) | 4.40 - 11.00 | [facility] | | | COUNT | | K/cu mm | LABORATORY | | | | | | SERVICES, | | | | | | CORE | | + + + + + + | RED CELL | 2.80 (L) | 4.50 - 6.00 | [facility] | | | COUNT | | M/cu mm | LABORATORY | | | | | | SERVICES, | | | | | | CORE | | + + + + + + | HEMOGLOBIN | 8.3 (L) | 13.5 - 17.5 | [facility] | | | | | g/dL | LABORATORY | | | | | | SERVICES, | | | | | | CORE | | + + + + + + | HEMATOCRIT | 23.4 (L) | 41.0 - 53.0 % | [facility] | | | | | | LABORATORY | | | | | | SERVICES, | | | | | | CORE | | + + + + + + | MCV | 83.6 | 80.0 - 96.0 fL | [facility] [...] + + + + | NEUTROPHIL | 0.0 (L) | 50.0 - 70.0 % | [facility] | | | % | | | LABORATORY | | | | | | SERVICES, | | | | | | CORE | | + + + + + + | LYMPHOCYTE | 94.1 (H) | 18.0 - 42.0 % | [facility] | | | % | | | LABORATORY | | | | | | SERVICES, | | | | | | CORE | | + + + + + + | MONOCYTE % | 5.9 | 3.5 - 9.0 % | [facility] [...] + + + + | NEUTROPHIL | 0.00 (L) | 1.80 - 7.70 | [facility] | | | # | | K/cu mm | LABORATORY | | | | | | SERVICES, | | | | | | CORE | | + + + + + + | LYMPHOCYTE | 0.16 (L) | 1.00 - 4.80 | [facility] | | | # | | K/cu mm | LABORATORY | | | | | | SERVICES, | | | | | | CORE | | + + + + + + | MONOCYTE # | 0.01 (L) | 0.10 - 0.90 | [facility] [...] [facility] | [address] | [place] [address] | | | SERVICES, CORE | [address] | | | + + + + + PHOSPHORUS, PLASMA (06/24/2015 11:00 PM PST) + +---------+ + + + | Component | Value | Ref Range | Performed | Pathologist | | | | | At | Signature | + +---------+ + + + | PHOSPHORUS, | 4.9 (H) | 2.4 - 4.7 mg/dL | [...] + + + + + | [facility] | [address] | [place] [address] | | | SERVICES, CORE | [address] | | | + + + + + MAGNESIUM, PLASMA (06/24/2015 11:00 PM PST) + +-------+ + + [...] + + + + + | [facility] | [address] | [place] [address] | | | SERVICES, CORE | [address] | | | + + + + + COMPLETE METABOLIC SET (NA,K,CL,CO2,BUN,CREAT,GLUC,CA,AST,ALT,BILI TOTAL,ALK PHOS,ALB,PROT TOTAL) (06/24/2015 11:00 PM PST) + +---------+ + + + | Component | Value | Ref Range | Performed | Pathologist | | | | | At | Signature | + +---------+ + + + | GLUCOSE, | 77 | 60 - 99 mg/dL | [facility] [...] +---------+ + + + | CREATININE | 1.20 | 0.70 - 1.30 | [facility] | | | PLASMA | | mg/dL | LABORATORY | | | (LAB) | | | SERVICES, | | | | | | CORE | | + +---------+ + + + | EGFR | >60 | >60 mL/min | [facility] | | | - | | | LABORATORY | | | DUTCH | | | SERVICES, | | | [...] +---------+ + + + | CALCIUM, | 8.9 | 8.6 - 10.2 | [facility] | [...] the MDRD equation recommended by the | [facility] | | National Kidney Disease Education Program. [...] + | [facility] | [address] | [place] [address] | | | SERVICES, CORE | [address] | | | + + + + + LIT HLA-DRB 3,4,5 HIGH RES (06/24/2015 8:10 PM PST) + + + + + [...] + + + | [facility] - | [address] | [place] [address] | | | IMMUNOGENETICS/TRANS | [address] | | | | [facility] | | | | + + + + + LIT HLA-DQ HIGH RES (06/24/2015 8:10 PM PST) + + | Specimen | + + | Blood - Blood | | (substance) | + + + + + + + | Performing | Address | City/State/Zipcode | Phone Number | | Organization | | | | + + + + + | [facility] | [address], | [place] [address] | | | IMMUNOGENETICS/TRANS | [address] | | | | [facility] | | | | + + + + + LIT HLA-DR HIGH RES (06/24/2015 8:10 PM PST) + + | Specimen | + + | Blood - Blood | | (substance) | + + + + + + + | Performing | Address | City/State/Zipcode | Phone Number | | Organization | | | | + + + + + | [facility] - | [address] | [place] [address] | | | IMMUNOGENETICS/TRANS | [address] | | | | [facility] | | | | + + + + + LIT HLA-C HIGH RES (06/24/2015 8:10 PM PST) + + | Specimen | + + | Blood - Blood | | (substance) | + + + + + + + | Performing | Address | City/State/Zipcode | Phone Number | | Organization | | | | + + + + + | [facility] - | [address] | [place] [address] | | | IMMUNOGENETICS/TRANS | [address] | | | | [facility] | | | | + + + + + LIT HLA-DP HIGH RES (06/24/2015 8:10 PM PST) + + | Specimen | + + | Blood - Blood | | (substance) | + + + + + + + | Performing | Address | City/State/Zipcode | Phone Number | | Organization | | | | + + + + + | [facility] - | [address] | [place], [place] | | | IMMUNOGENETICS/TRANS | [address] | | | | [facility] LAB[facility] | | | | + + + + + LIT HLA-B HIGH RES (06/24/2015 8:09 PM PST) + + | Specimen | + + | Blood - Blood | | (substance) | + + + + + + + | Performing | Address | City/State/Zipcode | Phone Number | | Organization | | | | + + + + + | [facility] - | [address] | [place], [place] | | | IMMUNOGENETICS/TRANS | [address] | | | | [facility] LAB[facility] | | | | + + + + + LIT HLA-A HIGH RES (06/24/2015 8:09 PM PST) + + + + + [...] + | [facility] - | [address] | [place] [address] | | | IMMUNOGENETICS/TRANS | [address] | | | | [facility] LAB[facility] | | | | + + + + + VRE (DIAZ) BY PCR (06/24/2015 11:58 AM PST) + + + + + [...] + + + + + | [facility] | [address] | [place] [address] | | | SERVICES, CORE | [address] | | | + + + + + PRODUCT - RED CELLS LEUKOREDUCED (06/24/2015 1:25 AM PST) + + + + + [...] + + + + | PRODUCT | [id number] | | [facility] | | | UNIT [...] + + + + | EXPIRATION | [id number] | | [facility] | | | DATE [...] + + + + | BLOOD | [id number] | | [facility] | | | PRODUCT [...] + + + + + | [facility] | [address] | [place] [address] | | | PATHOLOGY | [address] | | | + + + + + ANTIBODY SCREEN (06/24/2015 12:30 AM PST) + + + + [...] [facility] | [address] | [place] [address] | | | SERVICES, | [address] | | | | TRANSFUSION MEDICINE | | | | + + + + + ABO & RH TYPE (06/24/2015 12:30 AM PST) + + + + [...] | + + + + + | [facility] | [address] | [place] [address] | | | SERVICES, | [address] | | | | TRANSFUSION MEDICINE | | | | + + + + + CBC AND AUTO DIFF (06/24/2015 12:03 AM PST) + + + + + [...] + + + + | PLATELET | 27 (L) | 150 - 400 K/cu | [...] + + + + | NEUTROPHIL | 0.0 (L) | 50.0 - 70.0 % | [facility] | | | % | | | LABORATORY | | | | | | SERVICES, | | | | | | CORE | | + + + + + + | LYMPHOCYTE | 93.7 (H) | 18.0 - 42.0 % | [...] + + + + | NEUTROPHIL | 0.00 (L) | 1.80 - 7.70 | [facility] [...] + + + | MONOCYTE # | 0.01 (L) | 0.10 - 0.90 | [facility] [...] + + + + + | [facility] | [address] | [place] [address] | | | KOLE, INDRA | [address] | | | + + + + + LDH TOTAL, PLASMA (06/24/2015 12:03 AM PST) + +---------+ + + + | Component | Value | Ref Range | Performed | Pathologist | | | | | At | Signature | + +---------+ + + + | LD TOTAL, | 128 | <=250 U/L | [facility] | | [...] [facility] | [address] | [place] [address] | | | SERVICES, CORE | [address] | | | + + + + + PHOSPHORUS, PLASMA (06/24/2015 12:03 AM PST) + +-------+ + + + [...] | + + + + + | [facility] | [address] | [place] [address] | | | SERVICES, CORE | [address] | | | + + + + + MAGNESIUM, PLASMA (06/24/2015 12:03 AM PST) + +-------+ + + + [...] [facility] | [address] | [place] [address] | | | KOLE, INDRA | [address] | | | + + + + + COMPLETE METABOLIC SET (NA,K,CL,CO2,BUN,CREAT,GLUC,CA,AST,ALT,BILI TOTAL,ALK PHOS,ALB,PROT TOTAL) (06/24/2015 12:03 AM PST) + +---------+ + + + [...] +---------+ + + + | CREATININE | 0.82 | 0.70 - 1.30 | [facility] | | | PLASMA | | mg/dL | LABORATORY | | | (LAB) | | | SERVICES, | | | | | | CORE | | + +---------+ + + + | EGFR | >60 | >60 mL/min | [facility] | | | - | | | LABORATORY | | | DUTCH | | | SERVICES, | | | [...] + + + + + | [facility] | [address] | [place] [address] | | | SERVICES, CORE | [address] | | | + + + + + PRODUCT - PLATELET PHERESIS LEUKOREDUCED (06/23/2015 7:46 PM PST) + + + + + [...] + + + + | PRODUCT | [id number] | | [facility] | | | UNIT [...] + + + + | EXPIRATION | [id number] | | [facility] | | | DATE [...] + + + + | BLOOD | [id number] | | [facility] | | | PRODUCT [...] | + + + + + | [facility] | [address] | [place] [address] | | | PATHOLOGY | [address] | | | + + + + + PRODUCT - PLATELET PHERESIS LEUKOREDUCED (06/23/2015 7:46 PM PST) + + + + + [...] + + + + | PRODUCT | [id number] | | [facility] | | | UNIT [...] + + + + | EXPIRATION | [id number] | | [facility] | | | DATE [...] + + + + | BLOOD | [id number] | | [facility] | | | PRODUCT [...] | + + + + + | [facility] | [address] | [place] [address] | | | PATHOLOGY | [address] | | | + + + + + CBC AND AUTO DIFF (06/22/2015 11:59 PM PST) + + + + + [...] + + + + | HEMATOCRIT | 21.4 (L) | 41.0 - 53.0 % | [...] + + + | RDW SD | 36.5 | 35.1 - 46.3 fL | [facility] [...] + + + + | MPV | 8.8 (L) | 9.7 - 12.3 [...] + + + + | NEUTROPHIL | 0.0 (L) | 50.0 - 70.0 % | [facility] | | | % | | | LABORATORY | | | | | | SERVICES, | | | | | | CORE | | + + + + + + | LYMPHOCYTE | 100.0 (H) | 18.0 - 42.0 % | [facility] | | | % | | | LABORATORY | | | | | | SERVICES, | | | | | | CORE | | + + + + + + | MONOCYTE % | 0.0 (L) | 3.5 - 9.0 % | [facility] [...] + + + + | NEUTROPHIL | 0.00 (L) | 1.80 - 7.70 | [facility] | | | # | | K/cu mm | LABORATORY | | | | | | SERVICES, | | | | | | CORE | | + + + + + + | LYMPHOCYTE | 0.11 (L) | 1.00 - 4.80 | [facility] | | | # | | K/cu mm | LABORATORY | | | | | | SERVICES, | | | | | | CORE | | + + + + + + | MONOCYTE # | 0.00 (L) | 0.10 - 0.90 | [facility] [...] + + + + + | [facility] | [address] | [place] [address] | | | KOLE, INDRA | [address] | | | + + + + + PHOSPHORUS, PLASMA (06/22/2015 11:59 PM PST) + +-------+ + + + [...] [facility] | [address] | [place] [address] | | | SERVICES, CORE | [address] | | | + + + + + MAGNESIUM, PLASMA (06/22/2015 11:59 PM PST) + +-------+ + + + | Component | Value | Ref Range | Performed | Pathologist | | | | | At | Signature | + +-------+ + + + | MAGNESIUM,P | 2.1 | 1.8 - 2.5 mg/dL | [facility] | | | LASMA | | | [...] + + + + + | [facility] | [address] | [place] [address] | | | SERVICES, [facility] | [address] | | | + + + + + COMPLETE METABOLIC SET (NA,K,CL,CO2,BUN,CREAT,GLUC,CA,AST,ALT,BILI TOTAL,ALK PHOS,ALB,PROT TOTAL) (06/22/2015 11:59 PM PST) + +---------+ + + + | Component | Value | Ref Range | Performed | Pathologist | | | | | At | Signature | + +---------+ + + + | GLUCOSE, | 99 | 60 - 99 mg/dL | [facility] [...] | | | LABORATORY | | | [facility] | | | SERVICES, | | | [...] +---------+ + + + | AST(SGOT) | 10 | <=41 U/L | [facility] | | [...] the MDRD equation recommended by the | [facility] | | National Kidney Disease Education Program. [...] [facility] | [address] | [place] [address] | | | SERVICES, CORE | [address] | | | + + + + + CBC AND AUTO DIFF (06/21/2015 11:06 PM PST) + + + + + [...] + + + | RED CELL | 2.51 (L) | 4.50 - 6.00 | [facility] [...] + + + + | MCV | 84.5 | 80.0 - 96.0 fL | [facility] | | | | | | LABORATORY | | | | | | SERVICES, | | | | | | CORE | | + + + + + + | MCHC | 34.9 | 33.0 - 35.5 | [facility] | [...] + + + + | PLATELET | 24 (L) | 150 - 400 K/cu | [facility] | | | COUNT | | mm | LABORATORY | | | | | | SERVICES, | | | | | | CORE | | + + + + + + | MPV | 9.0 (L) | 9.7 - 12.3 fL | [...] [facility] | [address] | [place] [address] | | | SERVICES, CORE | [address] | | | + + + + + PHOSPHORUS, PLASMA (06/21/2015 11:06 PM PST) + +-------+ + + + [...] + + + + + | [facility] | [address] | [place] [address] | | | SERVICES, CORE | [address] | | | + + + + + MAGNESIUM, PLASMA (06/21/2015 11:06 PM PST) + +-------+ + + + [...] + | [facility] | [address] | [place] [address] | | | SERVICES, CORE | [address] | | | + + + + + COMPLETE METABOLIC SET (NA,K,CL,CO2,BUN,CREAT,GLUC,CA,AST,ALT,BILI TOTAL,ALK PHOS,ALB,PROT TOTAL) (06/21/2015 11:06 PM PST) + +---------+ + + + [...] +---------+ + + + | CREATININE | 0.85 | 0.70 - 1.30 | [facility] | | | PLASMA | | mg/dL | LABORATORY | | | (LAB) | | | SERVICES, | | | | | | CORE | | + +---------+ + + + | EGFR | >60 | >60 mL/min | [facility] | | | - | | | LABORATORY | | | [facility] | | | SERVICES, | | | [...] +---------+ + + + | CALCIUM, | 8.9 | 8.6 - 10.2 | [facility] | [...] +---------+ + + + | AST(SGOT) | 10 | <=41 U/L | [facility] | | | | | | LABORATORY | | | | | | SERVICES, | | | | | | CORE | | + +---------+ + + + | ALT (SGPT) | 44 | <=60 U/L | [facility] | | [...] + | [facility] | [address] | [place] [address] | | | SERVICES, CORE | [address] | | | + + + + + CBC AND AUTO DIFF (06/20/2015 11:01 PM PST) + + + + + + | Component | Value | Ref Range | Performed | Pathologist | | | | | At | Signature | + + + + + + | WHITE CELL | 0.13 (L) | 4.40 - 11.00 | [facility] | | | COUNT | | K/cu mm | LABORATORY | | | | | | SERVICES, | | | | | | CORE | | + + + + + + | RED CELL | 2.69 (L) | 4.50 - 6.00 | [facility] [...] + + + + | MCHC | 36.6 | 33.0 - 35.5 | [facility] | [...] + + + + | PLATELET | 36 (L) | 150 - 400 K/cu | [...] + + + + | NRBC% | Comment: Not measured. | 0.0 - 0.3 % | [facility] | | | | | | LABORATORY | | | | | | SERVICES, | | | | | | CORE | | + + + + + + | NRBC# | Comment: Not measured. | 0.00 - 0.02 | [facility] | [...] + | [facility] | [address] | [place] [address] | | | SERVICES, CORE | [address] | | | + + + + + LDH TOTAL, PLASMA (06/20/2015 11:01 PM PST) + +---------+ + + + | Component | Value | Ref Range | Performed | Pathologist | | | | | At | Signature | + +---------+ + + + | LD TOTAL, | 142 | <=250 U/L | [facility] | | [...] [facility] | [address] | [place] [address] | | | SERVICES, CORE | [address] | | | + + + + + PHOSPHORUS, PLASMA (06/20/2015 11:01 PM PST) + +-------+ + + + | Component | Value | Ref Range | Performed | Pathologist | | | | | At | Signature | + +-------+ + + + | PHOSPHORUS, | 3.6 | 2.4 - 4.7 mg/dL | [facility] [...] [facility] | [address] | [place] [address] | | | SERVICES, CORE | [address] | | | + + + + + MAGNESIUM, PLASMA (06/20/2015 11:01 PM PST) + +-------+ + + [...] + | [facility] | [address] | [place] [address] | | | SERVICES, CORE | [address] | | | + + + + + COMPLETE METABOLIC SET (NA,K,CL,CO2,BUN,CREAT,GLUC,CA,AST,ALT,BILI TOTAL,ALK PHOS,ALB,PROT TOTAL) (06/20/2015 11:01 PM PST) + +---------+ + + [...] +---------+ + + + | CREATININE | 0.82 | 0.70 - 1.30 | [facility] | | | PLASMA | | mg/dL | LABORATORY | | | (LAB) | | | SERVICES, | | | | | | CORE | | + +---------+ + + + | EGFR | >60 | >60 mL/min | [facility] | | | - | | | LABORATORY | | | DUTCH | | | SERVICES, | | | [...] +---------+ + + + | AST(SGOT) | 14 | <=41 U/L | [facility] | | | | | | LABORATORY | | | | | | SERVICES, | | | | | | CORE | | + +---------+ + + + | ALT (SGPT) | 44 | <=60 U/L | [facility] | | [...] + + + | ANION GAP | 4 | mmol/L | [facility] | | | [...] + | [facility] | [address] | [place] [address] | | | SERVICES, CORE | [address] | | | + + + + + PRODUCT - PLATELET PHERESIS LEUKOREDUCED (06/20/2015 12:30 AM PST) + + + + [...] + + + + | PRODUCT | [id number] | | [facility] | | | UNIT [...] + + + + | EXPIRATION | [id number] | | [facility] | | | DATE [...] + + + + | BLOOD | [id number] | | [facility] | | | PRODUCT [...] + + + + + | [facility] | [address] | [place] [address] | | | PATHOLOGY | [address] | | | + + + + + PRODUCT - RED CELLS LEUKOREDUCED (06/20/2015 12:30 AM PST) + + + + [...] + + + + | PRODUCT | [id number] | | [facility] | | | UNIT [...] + + + + | EXPIRATION | [id number] | | [facility] | | | DATE [...] + + + + | BLOOD | [id number] | | [facility] | | | PRODUCT [...] + + + + + | [facility] | [address] | [place] [address] | | | PATHOLOGY | [address] | | | + + + + + CBC AND AUTO DIFF (06/19/2015 11:24 PM PST) + + + + + [...] + + + | RED CELL | 2.36 (L) | 4.50 - 6.00 | [facility] [...] + + + + | MCV | 83.9 | 80.0 - 96.0 fL | [facility] | | | | | | LABORATORY | | | | | | SERVICES, | | | | | | CORE | | + + + + + + | MCHC | 36.9 | 33.0 - 35.5 | [facility] | [...] + | [facility] | [address] | [place] [address] | | | SERVICES, CORE | [address] | | | + + + + + PHOSPHORUS, PLASMA (06/19/2015 11:24 PM PST) + +-------+ + + + [...] [facility] | [address] | [place] [address] | | | SERVICES, CORE | [address] | | | + + + + + MAGNESIUM, PLASMA (06/19/2015 11:24 PM PST) + +-------+ + + + [...] [facility] | [address] | [place] [address] | | | SERVICES, CORE | [address] | | | + + + + + COMPLETE METABOLIC SET (NA,K,CL,CO2,BUN,CREAT,GLUC,CA,AST,ALT,BILI TOTAL,ALK PHOS,ALB,PROT TOTAL) (06/19/2015 11:24 PM PST) + +---------+ + + + [...] | | | LABORATORY | | | DUTCH | | | SERVICES, | | | [...] +---------+ + + + | AST(SGOT) | 14 | <=41 U/L | [facility] | | | | | | LABORATORY | | | | | | SERVICES, | | | | | | CORE | | + +---------+ + + + | ALT (SGPT) | 48 | <=60 U/L | [facility] | | [...] the MDRD equation recommended by the | [facility] | | National Kidney Disease Education Program. [...] + + + + + | [facility] | [address] | [place] [address] | | | SERVICES, CORE | [address] | | | + + + + + AMYLASE, PLASMA (06/19/2015 12:03 AM PST) + +-------+ + + + | Component | Value | Ref Range | Performed | Pathologist | | | | | At | Signature | + +-------+ + + + | AMYLASE,TONIA | 44 | 25 - 115 U/L | [facility] | | | SMA | | | LABORATORY | | | [...] + | [facility] | [address] | [place] [address] | | | SERVICES, CORE | [address] | | | + + + + + CBC AND AUTO DIFF (06/19/2015 12:03 AM PST) + + + + + + | Component | Value | Ref Range | Performed | Pathologist | | | | | At | Signature | + + + + + + | WHITE CELL | 0.13 (L) | 4.40 - 11.00 | [facility] [...] + + + + | HEMATOCRIT | 21.9 (L) | 41.0 - 53.0 % | [facility] | | | | | | LABORATORY | | | | | | SERVICES, | | | | | | CORE | | + + + + + + | MCV | 85.9 | 80.0 - 96.0 fL | [facility] | | | | | | LABORATORY | | | | | | SERVICES, | | | | | | CORE | | + + + + + + | MCHC | 35.6 | 33.0 - 35.5 | [facility] | | | | | g/dL | LABORATORY | | | | | | SERVICES, | | | | | | CORE | | + + + + + + | RDW SD | 37.8 | 35.1 - 46.3 fL | [facility] | | | | | | LABORATORY | | | | | | SERVICES, | | | | | | CORE | | + + + + + + | PLATELET | 17 (L) | 150 - 400 K/cu | [...] [facility] | [address] | [place] [address] | | | SERVICES, CORE | [address] | | | + + + + + PHOSPHORUS, PLASMA (06/19/2015 12:03 AM PST) + +-------+ + + + [...] | + + + + + | [facility] | [address] | [place] [address] | | | SERVICES, CORE | [address] | | | + + + + + MAGNESIUM, PLASMA (06/19/2015 12:03 AM PST) + +-------+ + + + [...] [facility] | [address] | [place] [address] | | | INDRA SHARIF | [address] | | | + + + + + COMPLETE METABOLIC SET (NA,K,CL,CO2,BUN,CREAT,GLUC,CA,AST,ALT,BILI TOTAL,ALK PHOS,ALB,PROT TOTAL) (06/19/2015 12:03 AM PST) + +---------+ + + + [...] | | | LABORATORY | | | DUTCH | | | SERVICES, | | | [...] +---------+ + + + | TOTAL | 5.9 (L) | 6.4 - 8.2 g/dL | [facility] | | | PROTEIN, | | | LABORATORY | | | PLASMA | | | SERVICES, | | | (LAB) | | | CORE | | + +---------+ + + + | ALBUMIN, | 3.3 [...] + + + | ALT (SGPT) | 57 | <=60 U/L | [facility] | | [...] + | [facility] | [address] | [place] [address] | | | SERVICES, INDRA | [address] | | | + + + + + PRODUCT - RED CELLS LEUKOREDUCED (06/18/2015 12:08 AM PST) + + + + + [...] + + + + | PRODUCT | [id number] | | [facility] | | | UNIT [...] + + + + | EXPIRATION | [id number] | | [facility] | | | DATE [...] + + + + | BLOOD | [id number] | | [facility] | | | PRODUCT [...] | + + + + + | [facility] | [address] | [place] [address] | | | PATHOLOGY | [address] | | | + + + + + ANTIBODY SCREEN (06/18/2015 12:08 AM PST) + + + + + [...] [facility] | [address] | [place] [address] | | | SERVICES, | [address] | | | | TRANSFUSION MEDICINE | | | | + + + + + ABO & RH TYPE (06/18/2015 12:08 AM PST) + + + + + [...] + + + + + | [facility] | [address] | [place] [address] | | | SERVICES, | [address] | | | | TRANSFUSION MEDICINE | | | | + + + + + CBC AND AUTO DIFF (06/17/2015 11:00 PM PST) + + + + + + | Component | Value | Ref Range | Performed | Pathologist | | | | | At | Signature | + + + + + + | WHITE CELL | 0.15 (L) | 4.40 - 11.00 | [facility] | | | COUNT | | K/cu mm | LABORATORY | | | | | | SERVICES, | | | | | | CORE | | + + + + + + | RED CELL | 2.31 (L) | 4.50 - 6.00 | [facility] [...] + + + + | HEMATOCRIT | 19.9 (L) | 41.0 - 53.0 % | [facility] | | | | | | LABORATORY | | | | | | SERVICES, | | | | | | CORE | | + + + + + + | MCV | 86.1 | 80.0 - 96.0 fL | [facility] [...] + + + | RDW SD | 37.6 | 35.1 - 46.3 fL | [facility] [...] + + + + | NEUTROPHIL | 0.0 (L) | 50.0 - 70.0 % | [facility] | | | % | | | LABORATORY | | | | | | SERVICES, | | | | | | CORE | | + + + + + + | LYMPHOCYTE | 86.7 (H) | 18.0 - 42.0 % | [facility] | | | % | | | LABORATORY | | | | | | SERVICES, | | | | | | CORE | | + + + + + + | MONOCYTE % | 13.3 (H) | 3.5 - 9.0 % | [...] + + + + | NEUTROPHIL | 0.00 (L) | 1.80 - 7.70 | [facility] | | | # | | K/cu mm | LABORATORY | | | | | | SERVICES, | | | | | | CORE | | + + + + + + | LYMPHOCYTE | 0.13 (L) | 1.00 - 4.80 | [facility] | | | # | | K/cu mm | LABORATORY | | | | | | SERVICES, | | | | | | CORE | | + + + + + + | MONOCYTE # | 0.02 (L) | 0.10 - 0.90 | [facility] [...] + | [facility] | [address] | [place] [address] | | | SERVICES, INDRA | [address] | | | + + + + + PHOSPHORUS, PLASMA (06/17/2015 11:00 PM PST) + +-------+ + + + | Component | Value | Ref Range | Performed | Pathologist | | | | | At | Signature | + +-------+ + + + | PHOSPHORUS, | 4.4 | 2.4 - 4.7 mg/dL | [facility] [...] [facility] | [address] | [place] [address] | | | SERVICES, CORE | [address] | | | + + + + + MAGNESIUM, PLASMA (06/17/2015 11:00 PM PST) + +-------+ + + [...] [facility] | [address] | [place] [address] | | | SERVICES, CORE | [address] | | | + + + + + COMPLETE METABOLIC SET (NA,K,CL,CO2,BUN,CREAT,GLUC,CA,AST,ALT,BILI TOTAL,ALK PHOS,ALB,PROT TOTAL) (06/17/2015 11:00 PM PST) + +---------+ + + + | Component | Value | Ref Range | Performed | Pathologist | | | | | At | Signature | + +---------+ + + + | GLUCOSE, | 99 | 60 - 99 mg/dL | [facility] [...] +---------+ + + + | CREATININE | 0.85 | 0.70 - 1.30 | [facility] | | | PLASMA | | mg/dL | LABORATORY | | | (LAB) | | | SERVICES, | | | | | | CORE | | + +---------+ + + + | EGFR | >60 | >60 mL/min | [facility] | | | - | | | LABORATORY | | | DUTCH | | | SERVICES, | | | [...] +---------+ + + + | AST(SGOT) | 28 | <=41 U/L | [facility] | | | | | | LABORATORY | | | | | | SERVICES, | | | | | | CORE | | + +---------+ + + + | ALT (SGPT) | 76 (H) | <=60 U/L | [facility] | [...] + + + + + | [facility] | [address] | [place] [address] | | | KOLE, INDRA | [address] | | | + + + + + VRE (DIAZ) BY PCR (06/17/2015 10:48 AM PST) + + + + + [...] + | [facility] | [address] | [place] [address] | | | SERVICES, CORE | [address] | | | + + + + + PLATELET COUNT, WHOLE BLOOD (06/17/2015 6:55 AM PST) + +--------+ + + + | Component | Value | Ref Range | Performed | Pathologist | | | | | At | Signature | + +--------+ + + + | PLATELET | 26 (L) | 150 - 400 K/cu | [...] [facility] | [address] | [place] [address] | | | SERVICES, CORE | [address] | | | + + + + + PRODUCT - PLATELET PHERESIS LEUKOREDUCED (06/17/2015 1:35 AM PST) + + + + + [...] + + + + | PRODUCT | [id number] | | [facility] | | | UNIT [...] + + + + | EXPIRATION | [id number] | | [facility] | | | DATE [...] + + + + | BLOOD | [id number] | | [facility] | | | PRODUCT [...] + + + + + | [facility] | [address] | [place] [address] | | | PATHOLOGY | [address] | | | + + + + + CBC AND AUTO DIFF (06/16/2015 11:50 PM PST) + + + + + [...] + + + + | MCV | 84.5 | 80.0 - 96.0 fL | [facility] | | | | | | LABORATORY | | | | | | SERVICES, | | | | | | CORE | | + + + + + + | MCHC | 37.2 | 33.0 - 35.5 | [facility] | | | | | g/dL | LABORATORY | | | | | | SERVICES, | | | | | | CORE | | + + + + + + | RDW SD | 36.5 | 35.1 - 46.3 fL | [facility] [...] + + + + | MPV | 9.0 (L) | 9.7 - 12.3 fL | [...] [facility] | [address] | [place] [address] | | | SERVICES, CORE | [address] | | | + + + + + LDH TOTAL, PLASMA (06/16/2015 11:50 PM PST) + +---------+ + + + | Component | Value | Ref Range | Performed | Pathologist | | | | | At | Signature | + +---------+ + + + | LD TOTAL, | 159 | <=250 U/L | [facility] | | [...] | + + + + + | [facility] | [address] | [place] [address] | | | SERVICES, CORE | [address] | | | + + + + + PHOSPHORUS, PLASMA (06/16/2015 11:50 PM PST) + +-------+ + + + [...] [facility] | [address] | [place] [address] | | | SERVICES, CORE | [address] | | | + + + + + MAGNESIUM, PLASMA (06/16/2015 11:50 PM PST) + +-------+ + + + [...] [facility] | [address] | [place] [address] | | | SERVICES, CORE | [address] | | | + + + + + COMPLETE METABOLIC SET (NA,K,CL,CO2,BUN,CREAT,GLUC,CA,AST,ALT,BILI TOTAL,ALK PHOS,ALB,PROT TOTAL) (06/16/2015 11:50 PM PST) + + + + + + | Component | Value | Ref Range | Performed | Pathologist | | | | | At | Signature | + + + + + + | GLUCOSE, | 126 [...] + + + + | CREATININE | 0.56 (L) | 0.70 - 1.30 | [facility] | | | PLASMA | | mg/dL | LABORATORY | | | (LAB) | | | SERVICES, | | | | | | CORE | | + + + + + + | EGFR | >60 | >60 mL/min | [facility] | | | - | | | LABORATORY | | | DUTCH | | | SERVICES, | | | [...] + + + | ALK PHOS | 58 | 53 - 128 U/L | [facility] | | | | | | LABORATORY | | | | | | SERVICES, | | | | | | CORE | | + + + + + + | AST(SGOT) | 21 | <=41 U/L | [facility] | | | | | | LABORATORY | | | | | | SERVICES, | | | | | | CORE | | + + + + + + | ALT (SGPT) | 79 (H) | <=60 U/L | [facility] | | | | | | LABORATORY | | | | | | SERVICES, | | | | | | CORE | | + + + + + + | ANION | 6 [...] [facility] | [address] | [place] [address] | | | SERVICES, CORE | [address] | | | + + + + + C. DIFFICILE TOXIN (06/16/2015 9:06 AM PST) + + + + + [...] + | [facility] | [address] | [place] [address] | | | SERVICES, CORE | [address] | | | + + + + + CBC AND AUTO DIFF (06/15/2015 11:00 PM PST) + + + + [...] + + + + | HEMATOCRIT | 23.4 (L) | 41.0 - 53.0 % | [facility] | | | | | | LABORATORY | | | | | | SERVICES, | | | | | | CORE | | + + + + + + | MCV | 85.1 | 80.0 - 96.0 fL | [facility] [...] + + + | RDW SD | 37.2 | 35.1 - 46.3 fL | [facility] [...] + | [facility] | [address] | [place] [address] | | | KOLE, INDRA | [address] | | | + + + + + PHOSPHORUS, PLASMA (06/15/2015 11:00 PM PST) + +-------+ + + [...] [facility] | [address] | [place] [address] | | | SERVICES, CORE | [address] | | | + + + + + MAGNESIUM, PLASMA (06/15/2015 11:00 PM PST) + +-------+ + + + | Component | Value | Ref Range | Performed | Pathologist | | | | | At | Signature | + +-------+ + + + | MAGNESIUM,P | 2.2 | 1.8 - 2.5 mg/dL | [facility] | | | LASMA | | | [...] + | [facility] | [address] | [place] [address] | | | SERVICES, [facility] | [address] | | | + + + + + COMPLETE METABOLIC SET (NA,K,CL,CO2,BUN,CREAT,GLUC,CA,AST,ALT,BILI TOTAL,ALK PHOS,ALB,PROT TOTAL) (06/15/2015 11:00 PM PST) + + + + [...] + + + + | CREATININE | 0.62 (L) | 0.70 - 1.30 | [facility] | | | PLASMA | | mg/dL | LABORATORY | | | (LAB) | | | SERVICES, | | | | | | CORE | | + + + + + + | EGFR | >60 | >60 mL/min | [facility] | | | - | | | LABORATORY | | | DUTCH | | | SERVICES, | | | [...] + + + + | CALCIUM, | 8.2 [...] + + + + | AST(SGOT) | 38 | <=41 U/L | [facility] | | | | | | LABORATORY | | | | | | SERVICES, | | | | | | CORE | | + + + + + + | ALT (SGPT) | 92 (H) | <=60 U/L | [facility] | [...] + + + + + | [facility] | [address] | [place] [address] | | | SERVICES, CORE | [address] | | | + + + + + 12 LEAD ECG (06/15/2015 2:20 PM PST) + + + + + + | Component | Value | Ref Range | Performed | Pathologist | | | | | At | Signature | + + + + + + | VENTRICULAR | 52 | bpm | [facility] | | | RATE | | | OF | | | | | | CARDIOLOGY | | + + + + + + | ATRIAL RATE | 51 | bpm | [facility] | | | | | | OF | | | | | | CARDIOLOGY | | + + + + + + | P-R | 144 | ms | [facility] | | | INTERVAL | | | OF | | | | | | CARDIOLOGY | | + + + + + + | P AXIS | 69 | deg | [facility] | | | | | | OF | | | | | | CARDIOLOGY | | + + + + + + | QRS | 98 | ms | [facility] | | | DURATION | | | OF | | | | | | CARDIOLOGY | | + + + + + + | QT | 448 | ms | [facility] | | | | | | OF | | | | | | CARDIOLOGY | | + + + + + + | QTCB | 417 | ms | [facility] | | | | | | OF | | | | | | CARDIOLOGY | | + + + + + + | R AXIS | -10 | deg | [facility] | | | | | | OF | | | | | | CARDIOLOGY | | + + + + + + | T AXIS | 56 | deg | [facility] | | | | | | OF | | | | | | CARDIOLOGY | | + + + + + + | ECG | SINUS | | [facility] | | | IMPRESSION | BRADYCARDIAPROBABLE LEFT | | OF | | | | VENTRICULAR | | CARDIOLOGY | | | | HYPERTROPHY- ABNORMAL | | | | | | ECG -Electronically | | | | | | signed by: | | | | | | JOSE DYE | | | | | | 06-15-2015 14:46:28 | | | | + + + [...] + | [facility] | [address] | [place], [place] | | | CARDIOLOGY | [address] | [id number] | | + + + + + CBC AND AUTO DIFF (06/14/2015 11:06 PM PST) + + + + + [...] + + + + | HEMATOCRIT | 22.7 (L) | 41.0 - 53.0 % | [facility] | | | | | | LABORATORY | | | | | | SERVICES, | | | | | | CORE | | + + + + + + | MCV | 85.7 | 80.0 - 96.0 fL | [facility] [...] + + + | RDW SD | 39.0 | 35.1 - 46.3 fL | [facility] [...] + + + + + | [facility] | [address] | [place] [address] | | | SERVICES, CORE | [address] | | | + + + + + PHOSPHORUS, PLASMA (06/14/2015 11:06 PM PST) + +---------+ + + + [...] + | [facility] | [address] | [place] [address] | | | SERVICES, CORE | [address] | | | + + + + + MAGNESIUM, PLASMA (06/14/2015 11:06 PM PST) + +-------+ + + + | Component | Value | Ref Range | Performed | Pathologist | | | | | At | Signature | + +-------+ + + + | MAGNESIUM,P | 2.3 | 1.8 - 2.5 mg/dL | [facility] | | | LASMA | | | [...] + + + + + | [facility] | [address] | [place] [address] | | | SERVICES, CORE | [address] | | | + + + + + COMPLETE METABOLIC SET (NA,K,CL,CO2,BUN,CREAT,GLUC,CA,AST,ALT,BILI TOTAL,ALK PHOS,ALB,PROT TOTAL) (06/14/2015 11:06 PM PST) + + + + + [...] | | | LABORATORY | | | DUTCH | | | SERVICES, | | | [...] + + + + | POTASSIUM, | 3.6 [...] + + + + | CALCIUM, | 8.3 [...] + + + + | TOTAL | 6.4 [...] + + + + | AST(SGOT) | 40 [...] + | [facility] | [address] | [place] [address] | | | SERVICES, INDRA | [address] | | | + + + + + PLATELET COUNT, WHOLE BLOOD (06/14/2015 11:22 AM PST) + +--------+ + + + | Component | Value | Ref Range | Performed | Pathologist | | | | | At | Signature | + +--------+ + + + | PLATELET | 12 [...] [facility] | [address] | [place] [address] | | | SERVICES, CORE | [address] | | | + + + + + PRODUCT - PLATELET PHERESIS LEUKOREDUCED (06/14/2015 12:34 AM PST) + + + + + [...] + + + + | PRODUCT | [id number] | | [facility] | | | UNIT [...] + + + + | EXPIRATION | [id number] | | [facility] | | | DATE [...] + + + + | BLOOD | [id number] | | [facility] | | | PRODUCT [...] DEPARTMENT OF | [address] | [place] [address] | | | PATHOLOGY | [address] | | | + + + + + PRODUCT - PLATELET PHERESIS LEUKOREDUCED (06/14/2015 12:34 AM PST) + + + + + [...] + + + + | PRODUCT | [id number] | | [facility] | | | UNIT [...] + + + + | EXPIRATION | [id number] | | [facility] | | | DATE [...] + + + + | BLOOD | [id number] | | [facility] | | | PRODUCT [...] | [address] | [place] [address] | | | PATHOLOGY | [address] | | | + + + + + CBC AND AUTO DIFF (06/13/2015 11:09 PM PST) + + + + + [...] + + + | RED CELL | 2.63 (L) | 4.50 - 6.00 | [facility] [...] + + + + | MCV | 87.8 | 80.0 - 96.0 fL | [facility] [...] + + + | RDW SD | 40.6 | 35.1 - 46.3 fL | [facility] [...] [facility] | [address] | [place] [address] | | | SERVICES, CORE | [address] | | | + + + + + LDH TOTAL, PLASMA (06/13/2015 11:09 PM PST) + +---------+ + + + | Component | Value | Ref Range | Performed | Pathologist | | | | | At | Signature | + +---------+ + + + | LD TOTAL, | 172 | <=250 U/L | [facility] | | [...] + | [facility] | [address] | [place] [address] | | | KOLE, INDRA | [address] | | | + + + + + PHOSPHORUS, PLASMA (06/13/2015 11:09 PM PST) + +-------+ + + + [...] [facility] | [address] | [place] [address] | | | SERVICES, CORE | [address] | | | + + + + + MAGNESIUM, PLASMA (06/13/2015 11:09 PM PST) + +-------+ + + + | Component | Value | Ref Range | Performed | Pathologist | | | | | At | Signature | + +-------+ + + + | MAGNESIUM,P | 2.4 | 1.8 - 2.5 mg/dL | [facility] [...] + + | [facility] | [address] | [place] [address] | | | SERVICES, [facility] | [address] | | | + + + + + COMPLETE METABOLIC SET (NA,K,CL,CO2,BUN,CREAT,GLUC,CA,AST,ALT,BILI TOTAL,ALK PHOS,ALB,PROT TOTAL) (06/13/2015 11:09 PM PST) + + + + + + | Component | Value | Ref Range | Performed | Pathologist | | | | | At | Signature | + + + + + + | GLUCOSE, | 155 (H) | 60 - 99 mg/dL | [...] | | | LABORATORY | | | [facility] | | | SERVICES, | | | [...] + + + + | TOTAL | 6.4 [...] + + + + | AST(SGOT) | 35 | <=41 U/L | [facility] | | | | | | LABORATORY | | | | | | SERVICES, | | | | | | CORE | | + + + + + + | ALT (SGPT) | 65 (H) | <=60 U/L | [facility] | [...] + + + + + | [facility] | [address] | [place] [address] | | | SERVICES, CORE | [address] | | | + + + + + PRODUCT - RED CELLS LEUKOREDUCED (06/13/2015 5:07 PM PST) + + + + + [...] + + + + | PRODUCT | [id number] | | [facility] | | | UNIT [...] + + + + | EXPIRATION | [id number] | | [facility] | | | DATE [...] + + + + | BLOOD | [id number] | | [facility] | | | PRODUCT [...] + + + + + | [facility] | [address] | [place] [address] | | | PATHOLOGY | [address] | | | + + + + + CBC (HEMOGRAM) ONLY (06/13/2015 1:19 PM PST) + + + + + + | Component | Value | Ref Range | Performed | Pathologist | | | | | At | Signature | + + + + + + | WHITE CELL | 0.25 (L) | 4.40 - 11.00 | [facility] | | | COUNT | | K/cu mm | LABORATORY | | | | | | SERVICES, | | | | | | CORE | | + + + + + + | RED CELL | 2.44 (L) | 4.50 - 6.00 | [facility] [...] + + + + | HEMATOCRIT | 20.9 (L) | 41.0 - 53.0 % | [facility] | | | | | | LABORATORY | | | | | | SERVICES, | | | | | | CORE | | + + + + + + | MCV | 85.7 | 80.0 - 96.0 fL | [facility] [...] + + + | RDW SD | 39.0 | 35.1 - 46.3 fL | [facility] [...] [facility] | [address] | [place] [address] | | | SERVICES, CORE | [address] | | | + + + + + COAGULOPATHY PANEL (INR,APTT,FIBRINOGEN) (06/13/2015 1:19 PM PST) + + + + + + | Component | Value | Ref Range | Performed | Pathologist | | | | | At | Signature | + + + + + + | INR | 1.37 (H) | 0.90 - 1.20 INR | [...] + + + + | FIBRINOGEN | 201 | 200 - 450 mg/dL | [facility] [...] [facility] | [address] | [place] [address] | | | SERVICES, CORE | [address] | | | + + + + + PHOSPHORUS, PLASMA (06/13/2015 1:19 PM PST) + +-------+ + + + [...] [facility] | [address] | [place] [address] | | | SERVICES, CORE | [address] | | | + + + + + URIC ACID, PLASMA (06/13/2015 1:19 PM PST) + +---------+ + + + [...] [facility] | [address] | [place] [address] | | | SERVICES, CORE | [address] | | | + + + + + BASIC METABOLIC SET (NA, K, CL, TCO2, BUN, CR, GLU, CA) (06/13/2015 1:19 PM PST) + +---------+ + + + [...] | | | LABORATORY | | | [facility] | | | SERVICES, | | | [...] +---------+ + + + | CHLORIDE, | 112 [...] + + + + + | [facility] | [address] | [place] [address] | | | INDRA SHARIF | [address] | | | + + + + + PRODUCT - PLATELET PHERESIS LEUKOREDUCED (06/13/2015 1:01 AM PST) + + + + + [...] + + + + | PRODUCT | [id number] | | [facility] | | | UNIT [...] + + + + | EXPIRATION | [id number] | | [facility] | | | DATE [...] + + + + | BLOOD | [id number] | | [facility] | | | PRODUCT [...] + + + + + | [facility] | [address] | [place] [address] | | | PATHOLOGY | [address] | | | + + + + + D-DIMER, (PE OR DIC) (06/12/2015 11:20 PM PST) + + + + + + | Component | Value | Ref Range | Performed | Pathologist | | | | | At | Signature | + + + + + + | D-DIMER (PE | >4.00 (H) | <0.50 ug/mLFEU | [facility] | | | OR DIC) | | | LABORATORY | | | | | | SERVICES, | | | | | | CORE | | + + + + + + + + | Specimen | + + | Blood - Blood | | (substance) | + + + + + | Narrative | Performed At | + + + | D-Dimer Interpretation: <0.5 PE very unlikely | [facility] | | 0.50-4.0 Seen in ill patients but not diagnostic of thrombosis. | LABORATORY | | >4.0 Compatible with DIC but not diagnostic. If clinically | SERVICES, CORE | | indicated request titration of d-dimer. Values >8.0 | | | are strongly suggestive of DIC. | | + + + + + + + + | Performing | Address | City/State/Zipcode | Phone Number | | Organization | | | | + + + + + | [facility] | [address] | [place] [address] | | | INDRA SHARIF | [address] | | | + + + + + CBC AND AUTO DIFF (06/12/2015 11:17 PM PST) + + + + + [...] + + + | RED CELL | 2.50 (L) | 4.50 - 6.00 | [facility] [...] + + + + | MCV | 86.4 | 80.0 - 96.0 fL | [facility] | | | | | | LABORATORY | | | | | | SERVICES, | | | | | | CORE | | + + + + + + | MCHC | 36.6 | 33.0 - 35.5 | [facility] | | | | | g/dL | LABORATORY | | | | | | SERVICES, | | | | | | CORE | | + + + + + + | RDW SD | 39.6 | 35.1 - 46.3 fL | [facility] [...] [facility] | [address] | [place] [address] | | | INDRA SHARIF | [address] | | | + + + + + PHOSPHORUS, PLASMA (06/12/2015 11:17 PM PST) + +---------+ + + + | Component | Value | Ref Range | Performed | Pathologist | | | | | At | Signature | + +---------+ + + + | PHOSPHORUS, | 1.6 (L) | 2.4 - 4.7 mg/dL | [...] + + + + + | [facility] | [address] | [place] [address] | | | SERVICES, CORE | [address] | | | + + + + + MAGNESIUM, PLASMA (06/12/2015 11:17 PM PST) + +-------+ + + + | Component | Value | Ref Range | Performed | Pathologist | | | | | At | Signature | + +-------+ + + + | MAGNESIUM,P | 2.0 | 1.8 - 2.5 mg/dL | [facility] | | | LASMA | | | [...] + | [facility] | [address] | [place] [address] | | | SERVICES, CORE | [address] | | | + + + + + COMPLETE METABOLIC SET (NA,K,CL,CO2,BUN,CREAT,GLUC,CA,AST,ALT,BILI TOTAL,ALK PHOS,ALB,PROT TOTAL) (06/12/2015 11:17 PM PST) + +---------+ + + + | Component | Value | Ref Range | Performed | Pathologist | | | | | At | Signature | + +---------+ + + + | GLUCOSE, | 172 (H) | 60 - 99 mg/dL | [...] | | | LABORATORY | | | DUTCH | | | SERVICES, | | | [...] + + | [facility] | [address] | [place] [address] | | | SERVICES, CORE | [address] | | | + + + + + CBC (HEMOGRAM) ONLY (06/12/2015 11:13 AM PST) + + + + + + | Component | Value | Ref Range | Performed | Pathologist | | | | | At | Signature | + + + + + + | WHITE CELL | 0.23 (L) | 4.40 - 11.00 | [facility] | | | COUNT | | K/cu mm | LABORATORY | | | | | | SERVICES, | | | | | | CORE | | + + + + + + | RED CELL | 2.91 (L) | 4.50 - 6.00 | [facility] [...] + + + + | HEMATOCRIT | 25.0 (L) | 41.0 - 53.0 % | [facility] | | | | | | LABORATORY | | | | | | SERVICES, | | | | | | CORE | | + + + + + + | MCV | 85.9 | 80.0 - 96.0 fL | [facility] | | | | | | LABORATORY | | | | | | SERVICES, | | | | | | CORE | | + + + + + + | MCHC | 36.8 | 33.0 - 35.5 | [facility] | | | | | g/dL | LABORATORY | | | | | | SERVICES, | | | | | | CORE | | + + + + + + | RDW SD | 39.1 | 35.1 - 46.3 fL | [facility] [...] + + + + | MPV | 9.0 (L) | 9.7 - 12.3 fL | [...] + + | [facility] | [address] | [place] [address] | | | SERVICES, CORE | [address] | | | + + + + + COAGULOPATHY PANEL (INR,APTT,FIBRINOGEN) (06/12/2015 11:13 AM PST) + + + + + + | Component | Value | Ref Range | Performed | Pathologist | | | | | At | Signature | + + + + + + | INR | 1.17 | 0.90 - 1.20 INR | [facility] | | | | | | LABORATORY | | | | | | SERVICES, | | | | | | CORE | | + + + + + + | APTT | 36.1 (H) | 26.0 - 36.0 | [facility] | | | | | seconds | LABORATORY | | | | | | SERVICES, | | | | | | CORE | | + + + + + + | FIBRINOGEN | 417 | 200 - 450 mg/dL | [facility] [...] + | [facility] | [address] | [place] [address] | | | SERVICES, CORE | [address] | | | + + + + + PHOSPHORUS, PLASMA (06/12/2015 11:13 AM PST) + +-------+ + + + [...] [facility] | [address] | [place] [address] | | | SERVICES, CORE | [address] | | | + + + + + URIC ACID, PLASMA (06/12/2015 11:13 AM PST) + +---------+ + + + | Component | Value | Ref Range | Performed | Pathologist | | | | | At | Signature | + +---------+ + + + | URIC ACID, | 1.9 (L) | 3.7 - 8.0 mg/dL | [...] [facility] | [address] | [place] [address] | | | SERVICES, CORE | [address] | | | + + + + + BASIC METABOLIC SET (NA, K, CL, TCO2, BUN, CR, GLU, CA) (06/12/2015 11:13 AM PST) + +---------+ + + + [...] +---------+ + + + | CREATININE | 0.80 | 0.70 - 1.30 | [facility] | | | PLASMA | | mg/dL | LABORATORY | | | (LAB) | | | SERVICES, | | | | | | CORE | | + +---------+ + + + | EGFR | >60 | >60 mL/min | [facility] | | | - | | | LABORATORY | | | DUTCH | | | SERVICES, | | | [...] + + + + + | [facility] | [address] | [place] [address] | | | INDRA SHARIF | [address] | | | + + + + + D-DIMER, (PE OR DIC) (06/12/2015 10:55 AM PST) + + + + + + | Component | Value | Ref Range | Performed | Pathologist | | | | | At | Signature | + + + + + + | D-DIMER (PE | >4.00 (H) | <0.50 ug/mLFEU | [facility] | | | OR DIC) | | | LABORATORY | | | | | | SERVICES, | | | | | | CORE | | + + + + + + + + | Specimen | + + | Blood - Blood | | (substance) | + + + + + | Narrative | Performed At | + + + | D-Dimer Interpretation: <0.5 PE very unlikely | [facility] | | 0.50-4.0 Seen in ill patients but not diagnostic of thrombosis. | LABORATORY | | >4.0 Compatible with DIC but not diagnostic. If clinically | SERVICES, CORE | | indicated request titration of d-dimer. Values >8.0 | | | are strongly suggestive of DIC. | | + + + + + + + + | Performing | Address | City/State/Zipcode | Phone Number | | Organization | | | | + + + + + | [facility] | [address] | [place] [address] | | | SERVICES, CORE | [address] | | | + + + + + CBC AND AUTO DIFF (06/11/2015 11:30 PM PST) + + + + + + | Component | Value | Ref Range | Performed | Pathologist | | | | | At | Signature | + + + + + + | WHITE CELL | 0.27 (L) | 4.40 - 11.00 | [facility] | | | COUNT | | K/cu mm | LABORATORY | | | | | | SERVICES, | | | | | | CORE | | + + + + + + | RED CELL | 2.83 (L) | 4.50 - 6.00 | [facility] [...] + + + + | MCV | 88.0 | 80.0 - 96.0 fL | [facility] | | | | | | LABORATORY | | | | | | SERVICES, | | | | | | CORE | | + + + + + + | MCHC | 34.9 | 33.0 - 35.5 | [facility] | | | | | g/dL | LABORATORY | | | | | | SERVICES, | | | | | | CORE | | + + + + + + | RDW SD | 40.6 | 35.1 - 46.3 fL | [facility] | | | | | | LABORATORY | | | | | | SERVICES, | | | | | | CORE | | + + + + + + | PLATELET | 24 (L) | 150 - 400 K/cu | [...] + + + + | NRBC% | 14.8 (H) | 0.0 - 0.3 % | [...] + + + + + | [facility] | [address] | [place] [address] | | | SERVICES, CORE | [address] | | | + + + + + PHOSPHORUS, PLASMA (06/11/2015 11:30 PM PST) + +---------+ + + + | Component | Value | Ref Range | Performed | Pathologist | | | | | At | Signature | + +---------+ + + + | PHOSPHORUS, | 1.8 (L) | 2.4 - 4.7 mg/dL | [facility] | | | PLASMA | | | [...] [facility] | [address] | [place] [address] | | | SERVICES, CORE | [address] | | | + + + + + MAGNESIUM, PLASMA (06/11/2015 11:30 PM PST) + +-------+ + + [...] + | [facility] | [address] | [place] [address] | | | INDRA SHARIF | [address] | | | + + + + + COMPLETE METABOLIC SET (NA,K,CL,CO2,BUN,CREAT,GLUC,CA,AST,ALT,BILI TOTAL,ALK PHOS,ALB,PROT TOTAL) (06/11/2015 11:30 PM PST) + +---------+ + + + | Component | Value | Ref Range | Performed | Pathologist | | | | | At | Signature | + +---------+ + + + | GLUCOSE, | 148 (H) | 60 - 99 mg/dL | [...] | | | LABORATORY | | | DUTCH | | | SERVICES, | | | [...] +---------+ + + + | CHLORIDE, | 111 [...] +---------+ + + + | AST(SGOT) | 27 | <=41 U/L | [facility] | | | | | | LABORATORY | | | | | | SERVICES, | | | | | | CORE | | + +---------+ + + + | ALT (SGPT) | 41 | <=60 U/L | [facility] | | [...] | + + + + + | [facility] | [address] | [place] [address] | | | SERVICES, CORE | [address] | | | + + + + + PRODUCT - PLATELET PHERESIS LEUKOREDUCED (06/10/2015 11:54 PM PST) + + + + + [...] + + + + | PRODUCT | [id number] | | [facility] | | | UNIT [...] + + + + | EXPIRATION | [id number] | | [facility] | | | DATE [...] + + + + | BLOOD | [id number] | | [facility] | | | PRODUCT [...] | + + + + + | [facility] | [address] | [place] [address] | | | PATHOLOGY | [address] | | | + + + + + PRODUCT - RED CELLS LEUKOREDUCED (06/10/2015 11:54 PM PST) + + + + + [...] + + + + | PRODUCT | [id number] | | [facility] | | | UNIT [...] + + + + | EXPIRATION | [id number] | | [facility] | | | DATE [...] + + + + | BLOOD | [id number] | | [facility] | | | PRODUCT [...] + + + + + | [facility] | [address] | [place] [address] | | | PATHOLOGY | [address] | | | + + + + + ANTIBODY SCREEN (06/10/2015 11:54 PM PST) + + + + + [...] + | [facility] | [address] | [place] [address] | | | SERVICES, | [address] | | | | TRANSFUSION MEDICINE | | | | + + + + + ABO & RH TYPE (06/10/2015 11:54 PM PST) + + + + + [...] [facility] | [address] | [place] [address] | | | SERVICES, | [address] | | | | TRANSFUSION MEDICINE | | | | + + + + + RBC MORPHOLOGY (06/10/2015 11:10 PM PST) + + + + + + | Component | Value | Ref Range | Performed | Pathologist | | | | | At | Signature | + + + + + + | OVALOCYTES | 1+(10-25cells/HPF) | | [facility] | | | | [...] + | [facility] | [address] | [place] [address] | | | SERVICES, CORE | [address] | | | + + + + + MANUAL DIFFERENTIAL (06/10/2015 11:10 PM PST) + + + + + + | Component | Value | Ref Range | Performed | Pathologist | | | | | At | Signature | + + + + + + | NEUTROPHIL | 0.0 (L) | 50.0 - 70.0 % | [facility] | | | % | | | LABORATORY | | | | | | SERVICES, | | | | | | CORE | | + + + + + + | LYMPHOCYTE | 93.0 (H) | 18.0 - 42.0 % | [...] + + + + | ATYPICAL | 3.5 (H)Comment: Atypical | 0.0 % | [facility] | | | CELL % | Cells with fine | | LABORATORY | | | | chromatin, high N-C | | SERVICES, | | | | ratio, prominent | | CORE | | | | nucleoli and dark blue | | | | | | cytoplasm. | | | | + + + + + + | NEUTROPHIL | 0.00 (L) | 1.80 - 7.70 | [facility] | | | # | | K/cu mm | LABORATORY | | | | | | SERVICES, | | | | | | CORE | | + + + + + + | LYMPHOCYTE | 0.95 (L) | 1.00 - 4.80 | [facility] | | | # | | K/cu mm | LABORATORY | | | | | | SERVICES, | | | | | | CORE | | + + + + + + | MONOCYTE # | 0.04 (L) | 0.10 - 0.90 | [facility] [...] [facility] | [address] | [place] [address] | | | SERVICES, CORE | [address] | | | + + + + + CBC AND AUTO DIFF (06/10/2015 11:10 PM PST) + + + + + + | Component | Value | Ref Range | Performed | Pathologist | | | | | At | Signature | + + + + + + | WHITE CELL | 1.02 (L) | 4.40 - 11.00 | [facility] | | | COUNT | | K/cu mm | LABORATORY | | | | | | SERVICES, | | | | | | CORE | | + + + + + + | RED CELL | 2.28 (L) | 4.50 - 6.00 | [facility] | | | COUNT | | M/cu mm | LABORATORY | | | | | | SERVICES, | | | | | | CORE | | + + + + + + | HEMOGLOBIN | 7.0 (L) | 13.5 - 17.5 | [facility] | | | | | g/dL | LABORATORY | | | | | | SERVICES, | | | | | | CORE | | + + + + + + | HEMATOCRIT | 20.5 (L) | 41.0 - 53.0 % | [facility] | | | | | | LABORATORY | | | | | | SERVICES, | | | | | | CORE | | + + + + + + | MCV | 89.9 | 80.0 - 96.0 fL | [facility] | | | | | | LABORATORY | | | | | | SERVICES, | | | | | | CORE | | + + + + + + | MCHC | 34.1 | 33.0 - 35.5 | [facility] | | | | | g/dL | LABORATORY | | | | | | SERVICES, | | | | | | CORE | | + + + + + + | RDW SD | 42.5 | 35.1 - 46.3 fL | [facility] [...] [facility] | [address] | [place] [address] | | | SERVICES, CORE | [address] | | | + + + + + PHOSPHORUS, PLASMA (06/10/2015 11:10 PM PST) + +-------+ + + + [...] + + + + + | [facility] | [address] | [place] [address] | | | SERVICES, CORE | [address] | | | + + + + + MAGNESIUM, PLASMA (06/10/2015 11:10 PM PST) + +-------+ + + + [...] + | [facility] | [address] | [place] [address] | | | SERVICES, INDRA | [address] | | | + + + + + COMPLETE METABOLIC SET (NA,K,CL,CO2,BUN,CREAT,GLUC,CA,AST,ALT,BILI TOTAL,ALK PHOS,ALB,PROT TOTAL) (06/10/2015 11:10 PM PST) + +---------+ + + + [...] +---------+ + + + | CREATININE | 0.87 | 0.70 - 1.30 | [facility] | | | PLASMA | | mg/dL | LABORATORY | | | (LAB) | | | SERVICES, | | | | | | CORE | | + +---------+ + + + | EGFR | >60 | >60 mL/min | [facility] | | | - | | | LABORATORY | | | DUTCH | | | SERVICES, | | | [...] +---------+ + + + | ALBUMIN, | 3.2 [...] + | [facility] | [address] | [place] [address] | | | SERVICES, CORE | [address] | | | + + + + + MIRANDA (DIAZ) BY PCR (06/10/2015 12:57 PM PST) + + + + + [...] [facility] | [address] | [place] [address] | | | KOLE, INDRA | [address] | | | + + + + + MANUAL DIFFERENTIAL (06/09/2015 11:30 PM PST) + + + + + + | Component | Value | Ref Range | Performed | Pathologist | | | | | At | Signature | + + + + + + | NEUTROPHIL | 0.0 (L) | 50.0 - 70.0 % | [facility] | | | % | | | LABORATORY | | | | | | SERVICES, | | | | | | CORE | | + + + + + + | LYMPHOCYTE | 87.5 (H) | 18.0 - 42.0 % | [facility] | | | % | | | LABORATORY | | | | | | SERVICES, | | | | | | CORE | | + + + + + + | MONOCYTE % | 8.0Comment: Some | 3.5 - 9.0 % | [...] + + + + | ATYPICAL | 4.5 (H)Comment: Atypical | 0.0 % | [facility] | | | CELL % | Cells with fine | | LABORATORY | | | | chromatin, high N-C | | SERVICES, | | | | ratio, prominent | | CORE | | | | nucleoli and dark blue | | | | | | cytoplasm. | | | | + + + + + + | NEUTROPHIL | 0.00 (L) | 1.80 - 7.70 | [facility] | | | # | | K/cu mm | LABORATORY | | | | | | SERVICES, | | | | | | CORE | | + + + + + + | LYMPHOCYTE | 0.75 (L) | 1.00 - 4.80 | [facility] | | | # | | K/cu mm | LABORATORY | | | | | | SERVICES, | | | | | | CORE | | + + + + + + | MONOCYTE # | 0.07 (L) | 0.10 - 0.90 | [facility] [...] + | [facility] | [address] | [place] [address] | | | SERVICES, CORE | [address] | | | + + + + + CBC AND AUTO DIFF (06/09/2015 11:30 PM PST) + + + + + + | Component | Value | Ref Range | Performed | Pathologist | | | | | At | Signature | + + + + + + | WHITE CELL | 0.86 (L) | 4.40 - 11.00 | [facility] | | | COUNT | | K/cu mm | LABORATORY | | | | | | SERVICES, | | | | | | CORE | | + + + + + + | RED CELL | 2.40 (L) | 4.50 - 6.00 | [facility] [...] + + + + | MCV | 90.0 | 80.0 - 96.0 fL | [facility] | | | | | | LABORATORY | | | | | | SERVICES, | | | | | | CORE | | + + + + + + | MCHC | 35.2 | 33.0 - 35.5 | [facility] | | | | | g/dL | LABORATORY | | | | | | SERVICES, | | | | | | CORE | | + + + + + + | RDW SD | 42.6 | 35.1 - 46.3 fL [...] [facility] | [address] | [place] [address] | | | SERVICES, CORE | [address] | | | + + + + + LDH TOTAL, PLASMA (06/09/2015 11:30 PM PST) + +---------+ + + + | Component | Value | Ref Range | Performed | Pathologist | | | | | At | Signature | + +---------+ + + + | LD TOTAL, | 174 | <=250 U/L | [facility] | | [...] | + + + + + | [facility] | [address] | [place] [address] | | | SERVICES, CORE | [address] | | | + + + + + PHOSPHORUS, PLASMA (06/09/2015 11:30 PM PST) + +-------+ + + [...] [facility] | [address] | [place] [address] | | | SERVICES, CORE | [address] | | | + + + + + MAGNESIUM, PLASMA (06/09/2015 11:30 PM PST) + +-------+ + + + | Component | Value | Ref Range | Performed | Pathologist | | | | | At | Signature | + +-------+ + + + | MAGNESIUM,P | 2.4 | 1.8 - 2.5 mg/dL | [facility] [...] + + + + + | [facility] | [address] | [place] [address] | | | SERVICES, CORE | [address] | | | + + + + + COMPLETE METABOLIC SET (NA,K,CL,CO2,BUN,CREAT,GLUC,CA,AST,ALT,BILI TOTAL,ALK PHOS,ALB,PROT TOTAL) (06/09/2015 11:30 PM PST) + +---------+ + + + [...] | | | LABORATORY | | | DUTCH | | | SERVICES, | | | [...] +---------+ + + + | ALBUMIN, | 3.2 [...] | + + + + + | [facility] | [address] | [place] [address] | | | SERVICES, CORE | [address] | | | + + + + + CULTURE, FUNGAL EXCEPT BLOOD, SKIN, HAIR, NAIL (06/09/2015 2:45 PM PST) + + | Specimen | + + | Tissue - Leg - right | + + + + + | Narrative | Performed At | + + + | Culture Report: No fungus isolated at 3 weeks. Fungal Smear: | [facility] - | | No fungal elements seen | [facility] - | | | [place] | + + + + + + + + | Performing | Address | City/State/Zipcode | Phone Number | | Organization | | | | + + + + + | [facility] - | [address] | [place] [address] | | | [place] | | | | + + + + + CULTURE, AFB (ALL SPEC TYPES EXCEPT BLOOD) (06/09/2015 2:45 PM PST) + + | Specimen | + + | Tissue - Leg - right | + + + + + | Narrative | Performed At | + + + | Culture Report: No acid fast bacteria isolated at 6 weeks. AFB | [facility] | | Smear: AFB not detected | [facility] - | | | [place] | + + + + + + + + | Performing | Address | City/State/Zipcode | Phone Number | | Organization | | | | + + + + + | [facility] - | [address] | [place] [address] | | | [place] | | | | + + + + + CULTURE, TISSUE (06/09/2015 2:45 PM PST) + + | Specimen | + + | Tissue - Leg - right | + + + + + | Narrative | Performed At | + + + | Culture Report: No growth No anaerobic organisms isolated. | [facility] - | | Gram Stain: No squamous epithelial cells No polymorphonuclear | [facility] - | | cells No organisms seen | [place] | + + + + + + + + | Performing | Address | City/State/Zipcode | Phone Number | | Organization | | | | + + + + + | [facility] - | [address] | [place] [address] | | | [place] | | | | + + + + + LEUKEMIA/LYMPHOMA MARKERS - BONE MARROW (LABEL) (06/09/2015 12:53 PM PST) + + | Specimen | + + | Bone marrow - Bone | | marrow structure | | (body structure) | + + + + + + + | Performing | Address | City/State/Zipcode | Phone Number | | Organization | | | | + + + + + | [facility] | [address] | [place] [address] | | | SERVICES, SPECIAL | [address] | | | | IMM + COAG | | | | + + + + + BONE MARROW BX/ASP MORPH ONLY (LABEL) (06/09/2015 12:53 PM PST) + + | Specimen | + + | Bone marrow - Bone | | marrow structure | | (body structure) | + + + + + + + | Performing | Address | City/State/Zipcode | Phone Number | | Organization | | | | + + + + + | [facility] | [address] | [place] [address] | | | SERVICES, SPECIAL | [address] | | | | IMM + COAG | | | | + + + + + VANCOMYCIN, TROUGH (06/09/2015 11:47 AM PST) + +-------+ + + + | Component | Value | Ref Range | Performed | Pathologist | | | | | At | Signature | + +-------+ + + + | VANCOMYCIN, | 12.6 | 5.0 - 15.0 | [facility] | [...] Performed At | + + + | IV Trough to be drawn immediately prior to next dose at 1200 on | [facility] | | Saturday 06/09. Thank you, pharmacy | LABORATORY | | | SERVICES, CORE | + + + + + + + + | Performing | Address | City/State/Zipcode | Phone Number | | Organization | | | | + + + + + | [facility] | [address] | [place] [address] | | | SERVICES, CORE | [address] | | | + + + + + PRODUCT - RED CELLS LEUKOREDUCED (06/09/2015 12:36 AM PST) + + + + + [...] + + + + | PRODUCT | [id number] | | [facility] | | | UNIT [...] + + + + | EXPIRATION | [id number] | | [facility] | | | DATE [...] + + + + | BLOOD | [id number] | | [facility] | | | PRODUCT [...] + + + + + | [facility] | [address] | [place] [address] | | | PATHOLOGY | [address] | | | + + + + + C. DIFFICILE TOXIN (06/09/2015 12:24 AM PST) + + + + + [...] + | [facility] | [address] | [place] [address] | | | SERVICES, CORE | [address] | | | + + + + + LEUKEMIA/LYMPHOMA MARKERS - BONE MARROW (PP) (06/09/2015) + + + + + + | Component | Value | Ref Range | Performed | Pathologist | | | | | At | Signature | + + + + + + | HEMATOPATHO | SOURCE OF SPECIMEN:A | | [facility] | | | LOGY | Bone Marrow Aspirate | | DEPARTMENT | | | | 1x2ml HeparinSOURCE OF | | OF | | | | SPECIMEN:B Bone Marrow | | PATHOLOGY | | | | ClotSOURCE OF SPECIMEN:C | | | | | | Bone Marrow | | | | | | BiopsySOURCE OF | | | | | | SPECIMEN:D Peripheral | | | | | | Blood Clinical | | | | | | History:The patient is a | | | | | | 24 year old with a | | | | | | 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 This is a day | | | | | | 14marrow after 3 + 7. 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 | | | | | | Both clot and the core | | | | | | biopsy were fixed | | | | | | informalin and the core | | | | | | biopsy was decalcified. | | | | | | Anti-coagulated bone | | | | | | marrowaspirate was also | | | | | | received for flow | | | | | | cytometric | | | | | | analysis. A | | | | | | Umanzor-stainedcytoprep | | | | | | of the cell suspension | | | | | | was prepared for | | | | | | morphologic | | | | | | correlationwith the flow | | | | | | cytometry results. | | | | | | Microscopic | | | | | | Description:Peripheral | | | | | | Blood Smear: | | | | | | Morphologic review | | | | | | correlates with the | | | | | | reportedCBC values. The | | | | | | red blood cells show | | | | | | predominately normal | | | | | | morphology. Whiteblood | | | | | | cells are markedly | | | | | | decreased and consist | | | | | | predominately | | | | | | oflymphocytes. Rare | | | | | | blasts are present. | | | | | | Platelets show | | | | | | unremarkablemorphology. | | | | | | Bone Marrow | | | | | | Aspirate: The bone | | | | | | marrow aspirate smears | | | | | | lack particleshowever | | | | | | contain numerous blasts | | | | | | with rare small | | | | | | lymphocytes. The blasts | | | | | | arelarge or intermediate | | | | | | in size with relatively | | | | | | abundant blue | | | | | | cytoplasm,nuclei with | | | | | | round or irregular | | | | | | contours and moderately | | | | | | fine chromatin | | | | | | withprominent nucleoli. | | | | | | Rare blasts contain | | | | | | granules, however, no | | | | | | Kiara rods areseen. There | | | | | | is essentially no | | | | | | background trilineage | | | | | | hematopoiesis. A | | | | | | bone marrow aspirate | | | | | | differential count | | | | | | includes: Myeloid | | | | | | precursors 0%,erythroid | | | | | | precursors 0%, | | | | | | lymphocytes 15%, | | | | | | blasts/blast equivalents | | | | | | 85%,plasma cells 0%. | | | | | | Bone Marrow Biopsy | | | | | | and Clot Section: The | | | | | | core biopsy and clot | | | | | | section arereviewed. The | | | | | | biopsy shows variable | | | | | | cellularity, overall | | | | | | about 50%. Thereare | | | | | | sheets of mononuclear | | | | | | cells. No areas of | | | | | | normal hematopoiesis | | | | | | arepresent. The clot | | | | | | section lacks particles. | | | | | | Immunologic | | | | | | Analysis:Flow cytometric | | | | | | analysis demonstrates a | | | | | | myeloid blast | | | | | | population | | | | | | comprisingabout 53% of | | | | | | CD45+ cells with | | | | | | immunophenotype: CD13, | | | | | | CD33, CD34, [id number], | | | | | | partial CD64 and CD117 | | | | | | positive. Please see | | | | | | below for | | | | | | antibodiestested: | | | | | | Antibodies Tested | | | | | | CD11b CD13 CD14 | | | | | | CD15 CD16 CD33 CD34 | | | | | | [id number] CD64 CD71 CD117 | | | | | | CD123 | | | | | | HLA-DR | | | | | | Immunohistochemical | | | | | | Stains: CD34 and CD117 | | | | | | immunohistochemical | | | | | | stains areperformed on | | | | | | the clot section. CD34 | | | | | | stains about 50% of | | | | | | cells while thevast | | | | | | majority of nucleated | | | | | | cells present are | | | | | | CD117+. | | | | | | (Immunohistochemical [...] Laboratory | | | | | | Data:06/09/2015 | | | | | | Ref Range | | | | | | Value WHITE CELL | | | | | | COUNT 4.40-11.00 | | | | | | K/cu mm 0.65 (L)RED | | | | | | CELL COUNT 4.50-6.00 | | | | | | M/cu mm 2.29 | | | | | | (L)HEMOGLOBIN | | | | | | 13.5-17.5 g/dL 7.3 | | | | | | (L)HEMATOCRIT | | | | | | 41.0-53.0 % 20.3 | | | | | | (L)MCV 80.0-96.0 fL | | | | | | 88.6MCHC 33.0-35.5 g/dL | | | | | | 36.0RDW SD | | | | | | 35.1-46.3 fL | | | | | | 43.9PLATELET COUNT | | | | | | 150-400 K/cu mm 18 | | | | | | (L)MPV 9.7-12.3 fL | | | | | | 10.1NRBC% | | | | | | 0.0-0.3 % 0.0NRBC# | | | | | | 0.00-0.02 K/cu mm | | | | | | 0.00 NEUTROPHIL % | | | | | | 50.0-70.0 % 0.0 | | | | | | (L)LYMPHOCYTE % | | | | | | 18.0-42.0 % 88.0 | | | | | | (H)MONOCYTE % | | | | | | 3.5-9.0 % 7.4EOSINOPHIL | | | | | | % 1.0-3.0 % 0.0 | | | | | | (L)BASOPHIL % | | | | | | 0.0-2.0 % 0.0IMMATURE | | | | | | GRANULOCYTE% | | | | | | 0.0-0.6 % 0.0ATYPICAL | | | | | | CELL % 0.0 % | | | | | | 4.6 (H)NEUTROPHIL # | | | | | | 1.80-7.70 K/cu mm | | | | | | 0.00 (L)LYMPHOCYTE # | | | | | | 1.00-4.80 K/cu mm | | | | | | 0.57 (L)MONOCYTE # | | | | | | 0.10-0.90 K/cu mm | | | | | | 0.05 (L)EOSINOPHIL # | | | | | | 0.00-0.50 K/cu mm | | | | | | 0.00BASOPHIL # | | | | | | 0.00-0.10 K/cu mm | | | | | | 0.00IMMATURE | | | | | | GRANULOCYTE# | | | | | | 0.00-0.03 K/cu mm | | | | | | 0.00ATYPICAL CELLS # | | | | | | K/cu mm 0.03 | | | | | | My [...] | | | | | lly Signed 06/10/2015 | | | | | | 3:49PM | | | | + + + + + + + + | Specimen | + + | Bone marrow - Bone | | marrow | + + + + + + + | Performing | Address | City/State/Zipcode | Phone Number | | Organization | | | | + + + + + | [facility] | [address] | [place] [address] | | | PATHOLOGY | [address] | | | + + + + + MANUAL DIFFERENTIAL (06/08/2015 11:45 PM PST) + + + + + + | Component | Value | Ref Range | Performed | Pathologist | | | | | At | Signature | + + + + + + | NEUTROPHIL | 0.0 (L) | 50.0 - 70.0 % | [facility] | | | % | | | LABORATORY | | | | | | SERVICES, | | | | | | CORE | | + + + + + + | LYMPHOCYTE | 88.0 (H) | 18.0 - 42.0 % | [facility] | | | % | | | LABORATORY | | | | | | SERVICES, | | | | | | CORE | | + + + + + + | MONOCYTE % | 7.4 | 3.5 - 9.0 % [...] + + + + | ATYPICAL | 4.6 (H)Comment: Atypical | 0.0 % | [facility] | | | CELL % | Cells with fine | | LABORATORY | | | | chromatin, high N-C | | SERVICES, | | | | ratio, prominent | | CORE | | | | nucleoli and dark blue | | | | | | cytoplasm. | | | | + + + + + + | NEUTROPHIL | 0.00 (L) | 1.80 - 7.70 | [facility] | | | # | | K/cu mm | LABORATORY | | | | | | SERVICES, | | | | | | CORE | | + + + + + + | LYMPHOCYTE | 0.57 (L) | 1.00 - 4.80 | [facility] | | | # | | K/cu mm | LABORATORY | | | | | | SERVICES, | | | | | | CORE | | + + + + + + | MONOCYTE # | 0.05 (L) | 0.10 - 0.90 | [facility] [...] + + + + | ATYPICAL | 0.03 | K/cu mm | [facility] | | [...] [facility] | [address] | [place] [address] | | | SERVICES, CORE | [address] | | | + + + + + CBC AND AUTO DIFF (06/08/2015 11:45 PM PST) + + + + + + | Component | Value | Ref Range | Performed | Pathologist | | | | | At | Signature | + + + + + + | WHITE CELL | 0.65 (L) | 4.40 - 11.00 | [facility] | | | COUNT | | K/cu mm | LABORATORY | | | | | | SERVICES, | | | | | | CORE | | + + + + + + | RED CELL | 2.29 (L) | 4.50 - 6.00 | [facility] [...] + + + + | MCV | 88.6 | 80.0 - 96.0 fL | [facility] [...] + + + | RDW SD | 43.9 | 35.1 - 46.3 fL | [facility] | | | | | | LABORATORY | | | | | | SERVICES, | | | | | | CORE | | + + + + + + | PLATELET | 18 (L) | 150 - 400 K/cu | [...] [facility] | [address] | [place] [address] | | | SERVICES, CORE | [address] | | | + + + + + PHOSPHORUS, PLASMA (06/08/2015 11:45 PM PST) + +-------+ + + [...] + + + + + | [facility] | [address] | [place] [address] | | | SERVICES, CORE | [address] | | | + + + + + MAGNESIUM, PLASMA (06/08/2015 11:45 PM PST) + +-------+ + + [...] + + + + + | [facility] | [address] | [place] [address] | | | SERVICES, CORE | [address] | | | + + + + + COMPLETE METABOLIC SET (NA,K,CL,CO2,BUN,CREAT,GLUC,CA,AST,ALT,BILI TOTAL,ALK PHOS,ALB,PROT TOTAL) (06/08/2015 11:45 PM PST) + +---------+ + + [...] +---------+ + + + | CREATININE | 0.87 | 0.70 - 1.30 | [facility] | | | PLASMA | | mg/dL | LABORATORY | | | (LAB) | | | SERVICES, | | | | | | CORE | | + +---------+ + + + | EGFR | >60 | >60 mL/min | [facility] | | | - | | | LABORATORY | | | DUTCH | | | SERVICES, | | | | | | CORE | | + +---------+ + + + | EGFR NON | >60 | >60 mL/min | [facility] | | | -JOANNE | | | LABORATORY | | | RICAN | | | SERVICES, | | | | | | CORE | | + +---------+ + + + | SODIUM, | 134 (L) | 136 - 145 | [facility] [...] + | [facility] | [address] | [place] [address] | | | SERVICES, CORE | [address] | | | + + + + + POSACONAZOLE, QUANT (06/08/2015 7:51 AM PST) + + + + + + | Component | Value | Ref Range | Performed | Pathologist | | | | | At | Signature | + + + + + + | POSACONAZOL | 1.1Comment: INTERPRETIVE | >=0.8 ug/mL | [facility] | | | E, | INFORMATION: | | REG UNIV | | | QUANTITATIO | Posaconazole, | | PTH - INTFC | | | N | Quantitative | | | | | | | | | | | | by LC-MS/MS | | | | | | Therapeutic Range | | | | | | (trough): Greater than | | | | | | 0.7 ug/mL Adverse | | | | | | effects may include | | | | | | fever, nausea, vomiting, | | | | | | diarrhea, cardiac | | | | | | arrhythmias and liver | | | | | | toxicity. Test developed | | | | | | and characteristics | | | | | | determined by [facility] | | | | | | Laboratories. See | | | | | | Compliance Statement B: | | | | | | [email or web address] | | | | | | by [employer] - [email or web address] | | | | | | [address]una[address], [facility] [place] | | | | | | [id number] | | | | | | [phone].[email or web address]. | | | | | | [facility], Elmo Roberts, | | | | | [...] [facility] | [address] | [place], [place] | | | UNIV PTH - INTFC | | [address] | | + + + + + PRODUCT - PLATELET PHERESIS LEUKOREDUCED (06/08/2015 1:27 AM PST) + + + + + [...] + + + + | PRODUCT | [id number] | | [facility] | | | UNIT [...] + + + + | EXPIRATION | [id number] | | [facility] | | | DATE [...] + + + + | BLOOD | [id number] | | [facility] | | | PRODUCT [...] [facility] | [address] | [place] [address] | | | PATHOLOGY | [address] | | | + + + + + MANUAL DIFFERENTIAL (06/07/2015 11:30 PM PST) + + + + [...] + + + + | LYMPHOCYTE | 85.3 (H) | 18.0 - 42.0 % | [facility] | | | % | | | LABORATORY | | | | | | SERVICES, | | | | | | CORE | | + + + + + + | MONOCYTE % | 4.9 | 3.5 - 9.0 % | [facility] [...] + + + + | ATYPICAL | 3.1 (H)Comment: Atypical | 0.0 % | [facility] | | | CELL % | Cells with fine | | LABORATORY | | | | chromatin, high N-C | | SERVICES, | | | | ratio, prominent | | CORE | | | | nucleoli and dark blue | | | | | | cytoplasm. | | | | + + + + + + | REACTIVE | 6.1 | 0.0 - 10.0 % | [facility] | | | LYMPHS % | | | LABORATORY | | | | | | SERVICES, | | | | | | CORE | | + + + + + + | NEUTROPHIL | 0.00 (L) | 1.80 - 7.70 | [facility] | | | # | | K/cu mm | LABORATORY | | | | | | SERVICES, | | | | | | CORE | | + + + + + + | LYMPHOCYTE | 0.55 (L) | 1.00 - 4.80 | [facility] [...] + + + + | REACTIVE | 0.04 | K/cu mm | [facility] [...] | + + + + + | [facility] | [address] | [place] [address] | | | SERVICES, CORE | [address] | | | + + + + + CBC AND AUTO DIFF (06/07/2015 11:30 PM PST) + + + + + + | Component | Value | Ref Range | Performed | Pathologist | | | | | At | Signature | + + + + + + | WHITE CELL | 0.64 (L) | 4.40 - 11.00 | [facility] [...] + + + + | MCV | 87.8 | 80.0 - 96.0 fL | [facility] [...] + + + + | MPV | 9.6 (L) | 9.7 - 12.3 [...] [facility] | [address] | [place] [address] | | | SERVICES, CORE | [address] | | | + + + + + PHOSPHORUS, PLASMA (06/07/2015 11:30 PM PST) + +-------+ + + [...] + | [facility] | [address] | [place] [address] | | | SERVICES, CORE | [address] | | | + + + + + MAGNESIUM, PLASMA (06/07/2015 11:30 PM PST) + +-------+ + + + | Component | Value | Ref Range | Performed | Pathologist | | | | | At | Signature | + +-------+ + + + | MAGNESIUM,P | 2.1 | 1.8 - 2.5 mg/dL | [facility] | | | LASMA | | | [...] + + + + + | [facility] | [address] | [place] [address] | | | SERVICES, CORE | [address] | | | + + + + + COMPLETE METABOLIC SET (NA,K,CL,CO2,BUN,CREAT,GLUC,CA,AST,ALT,BILI TOTAL,ALK PHOS,ALB,PROT TOTAL) (06/07/2015 11:30 PM PST) + +---------+ + + + [...] | | | LABORATORY | | | DUTCH | | | SERVICES, | | | | | | CORE | | + +---------+ + + + | EGFR NON | >60 | >60 mL/min | [facility] | | | -[facility] | | | LABORATORY | | | RICAN | | | SERVICES, | | | | | | CORE | | + +---------+ + + + | SODIUM, | 131 (L) | 136 - 145 | [facility] [...] +---------+ + + + | BILIRUBIN | 1.3 (H) | 0.3 - 1.2 mg/dL | [...] +---------+ + + + | AST(SGOT) | 27 | <=41 U/L | [facility] | | [...] + + + | [facility] | [address] | [place] [address] | | | SERVICES, CORE | [address] | | | + + + + + CULTURE, BLOOD BACTI & YEAST [facility] (06/07/2015 3:14 PM PST) + + + + [...] [facility] | [address] | [place] [address] | | | SERVICES, CORE | [address] | | | + + + + + CT MAX'FACIAL W CONTRAST (06/07/2015 12:33 PM PST) + + + + + + | Component | Value | Ref Range | Performed | Pathologist | | | | | At | Signature | + + + + + + | CT | EXAM: CT face with | | | | | MAX'FACIAL | contrast HISTORY: 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 Now | | | | | | neutropenic with new | | | | | | leftcheek swelling. | | | | | | Evaluate for abscess or | | | | | | osteomyelitis. | | | | | | COMPARISON: CT sinus, | | | | | | 05/28/15 TECHNIQUE: CT | | | | | | of the face with | | | | | | Omnipaque intravenous | | | | | | contrast. FINDINGS: | | | | | | Face: No fractures | | | | | | Orbits: Unremarkable | | | | | | Soft tissues: There is | | | | | | enlargement and | | | | | | heterogeneous | | | | | | enhancement of the | | | | | | leftparotid gland. | | | | | | Within the adjacent soft | | | | | | tissues, there is | | | | | | subcutaneous | | | | | | fatstranding and skin | | | | | | thickening, extending | | | | | | from soft tissues | | | | | | overlying theparotid | | | | | | gland to the angle of | | | | | | the mandible. Several | | | | | | adjacent level II | | | | | | lymphnodes are | | | | | | prominent, measuring up | | | | | | to 10 mm in short axis, | | | | | | likely reactive. | | | | | | Noinflammatory fluid | | | | | | collection is identified | | | | | | within the parotid | | | | | | gland or withinthe | | | | | | adjacent soft tissues. | | | | | | No adjacent osseous | | | | | | destruction. No parotid | | | | | | ductcalculus is | | | | | | identified. Paranasal | | | | | | sinuses: The | | | | | | circumferential mucosal | | | | | | thickening in the | | | | | | inferiorright maxillary | | | | | | sinus. Minimal mucosal | | | | | | thickening in the left | | | | | | sphenoid sinus. | | | | | | Mandible: Unremarkable | | | | | | No abnormal enhancement | | | | | | Brain: Visualized | | | | | | portions are | | | | | | unremarkable IMPRESSION: | | | | | | Enlarged and | | | | | | heterogeneously | | | | | | enhancing left parotid | | | | | | gland with | | | | | | adjacentsubcutaneous | | | | | | soft tissue edema and | | | | | | reactive | | | | | | lymphadenopathy, which | | | | | | mayrepresent | | | | | | parotiditis. Attending | | | | | | Radiologists: ARTIE | | | | | | BHAVESH SALDAÑAuthor: | | | | | | RITA STEWART MD I | | | | | [...] | | | | | sherif / ARTIE | | | | | | PIOTR 06/07/2015 17:14 | | | | | | PM Pending final | | | | | | approval / RITA | | | | | | PAT 06/07/2015 | | | | | | 17:12 PM Preliminary / | | | | | | RITA STEWART | | | | | | 06/07/2015 16:26 PM | | | | + + [...] | | | + +---------+ + + PRODUCT - RED CELLS LEUKOREDUCED (06/07/2015 1:10 AM PST) + + + + + [...] + + + + | PRODUCT | [id number] | | [facility] | | | UNIT [...] + + + + | EXPIRATION | [id number] | | [facility] | | | DATE [...] + + + + | BLOOD | [id number] | | [facility] | | | PRODUCT [...] | + + + + + | [facility] | [address] | [place] [address] | | | PATHOLOGY | [address] | | | + + + + + RBC MORPHOLOGY (06/06/2015 11:50 PM PST) + + | Specimen | + + | Blood - Blood | | (substance) | + + + + + + + | Performing | Address | City/State/Zipcode | Phone Number | | Organization | | | | + + + + + | [facility] | [address] | [place] [address] | | | SERVICES, CORE | [address] | | | + + + + + MANUAL DIFFERENTIAL (06/06/2015 11:50 PM PST) + + + + + + | Component | Value | Ref Range | Performed | Pathologist | | | | | At | Signature | + + + + + + | NEUTROPHIL | 0.8 (L) | 50.0 - 70.0 % | [facility] | | | % | | | LABORATORY | | | | | | SERVICES, | | | | | | CORE | | + + + + + + | LYMPHOCYTE | 82.2 (H) | 18.0 - 42.0 % | [...] + + + + | ATYPICAL | 3.1 (H)Comment: Atypical | 0.0 % | [facility] | | | CELL % | Cells with fine | | LABORATORY | | | | chromatin, high N-C | | SERVICES, | | | | ratio, prominent | | CORE | | | | nucleoli and dark blue | | | | | | cytoplasm., Atypical | | | | | | Cells with fine | | | | | | chromatin, high N-C | | | | | | ratio, prominent | | | | | | nucleoli and dark blue | | | | | | cytoplasm. | | | | + + + + + + | REACTIVE | 1.5Comment: Fewer than | 0.0 - 10.0 % | [facility] | | | LYMPHS % | 10% Reactive Lymphs | | LABORATORY | | | | noted on scan. | | SERVICES, | | | | | | CORE | | + + + + + + | NEUTROPHIL | 0.00 (L) | 1.80 - 7.70 | [facility] | | | # | | K/cu mm | LABORATORY | | | | | | SERVICES, | | | | | | CORE | | + + + + + + | LYMPHOCYTE | 0.46 (L) | 1.00 - 4.80 | [facility] | | | # | | K/cu mm | LABORATORY | | | | | | SERVICES, | | | | | | CORE | | + + + + + + | MONOCYTE # | 0.07 (L) | 0.10 - 0.90 | [facility] [...] + + + + | REACTIVE | 0.01 | K/cu mm | [facility] | | [...] [facility] | [address] | [place] [address] | | | INDRA SHARIF | [address] | | | + + + + + CBC AND AUTO DIFF (06/06/2015 11:50 PM PST) + + + + + + | Component | Value | Ref Range | Performed | Pathologist | | | | | At | Signature | + + + + + + | WHITE CELL | 0.56 (L) | 4.40 - 11.00 | [facility] | | | COUNT | | K/cu mm | LABORATORY | | | | | | SERVICES, | | | | | | CORE | | + + + + + + | RED CELL | 2.26 (L) | 4.50 - 6.00 | [facility] [...] + + + + | MCV | 89.8 | 80.0 - 96.0 fL | [facility] [...] + | [facility] | [address] | [place] [address] | | | SERVICES, CORE | [address] | | | + + + + + LDH TOTAL, PLASMA (06/06/2015 11:50 PM PST) + +---------+ + + + [...] [facility] | [address] | [place] [address] | | | SERVICES, CORE | [address] | | | + + + + + PHOSPHORUS, PLASMA (06/06/2015 11:50 PM PST) + +-------+ + + + [...] + + + + + | [facility] | [address] | [place] [address] | | | SERVICES, CORE | [address] | | | + + + + + MAGNESIUM, PLASMA (06/06/2015 11:50 PM PST) + +-------+ + + + [...] + + + + + | [facility] | [address] | [place] [address] | | | SERVICES, CORE | [address] | | | + + + + + COMPLETE METABOLIC SET (NA,K,CL,CO2,BUN,CREAT,GLUC,CA,AST,ALT,BILI TOTAL,ALK PHOS,ALB,PROT TOTAL) (06/06/2015 11:50 PM PST) + +---------+ + + + [...] +---------+ + + + | CREATININE | 0.83 | 0.70 - 1.30 | [facility] | | | PLASMA | | mg/dL | LABORATORY | | | (LAB) | | | SERVICES, | | | | | | CORE | | + +---------+ + + + | EGFR | >60 | >60 mL/min | [facility] | | | - | | | LABORATORY | | | DUTCH | | | SERVICES, | | | | | | CORE | | + +---------+ + + + | EGFR NON | >60 | >60 mL/min | [facility] | | | -[facility] | | | LABORATORY | | | RICAN | | | SERVICES, | | | | | | CORE | | + +---------+ + + + | SODIUM, | 135 (L) | 136 - 145 | [facility] [...] + + + | ALK PHOS | 54 | 53 - 128 U/L | [facility] [...] + | [facility] | [address] | [place] [address] | | | SERVICES, CORE | [address] | | | + + + + + CONFIRMATORY ABO/RH (06/06/2015 5:48 AM PST) + + + + + [...] [facility] | [address] | [place] [address] | | | KOLE | [address] | | | | TRANSFUSION MEDICINE | | | | + + + + + PRODUCT - PLATELET PHERESIS LEUKOREDUCED (06/06/2015 2:25 AM PST) + + + + + [...] + + + + | PRODUCT | [id number] | | [facility] | | | UNIT [...] + + + + | EXPIRATION | [id number] | | [facility] | | | DATE [...] + + + + | BLOOD | [id number] | | [facility] | | | PRODUCT [...] DEPARTMENT OF | [address] | [place] [address] | | | PATHOLOGY | [address] | | | + + + + + PRODUCT - RED CELLS LEUKOREDUCED (06/06/2015 2:25 AM PST) + + + + + [...] + + + + | PRODUCT | [id number] | | [facility] | | | UNIT [...] + + + + | EXPIRATION | [id number] | | [facility] | | | DATE [...] + + + + | BLOOD | [id number] | | [facility] | | | PRODUCT [...] DEPARTMENT OF | [address] | [place] [address] | | | PATHOLOGY | [address] | | | + + + + + ANTIBODY SCREEN (06/06/2015 2:25 AM PST) + + + + + [...] + | [facility] | [address] | [place] [address] | | | SERVICES, | [address] | | | | TRANSFUSION MEDICINE | | | | + + + + + ABO & RH TYPE (06/06/2015 2:25 AM PST) + + + + + [...] [facility] | [address] | [place] [address] | | | SERVICES, | [address] | | | | TRANSFUSION MEDICINE | | | | + + + + + RBC MORPHOLOGY (06/06/2015 12:40 AM PST) + + | Specimen | + + | Blood - Blood | | (substance) | + + + + + + + | Performing | Address | City/State/Zipcode | Phone Number | | Organization | | | | + + + + + | [facility] | [address] | [place] [address] | | | SERVICES, CORE | [address] | | | + + + + + MANUAL DIFFERENTIAL (06/06/2015 12:40 AM PST) + + + + + + | Component | Value | Ref Range | Performed | Pathologist | | | | | At | Signature | + + + + + + | NEUTROPHIL | 4.3 (L) | 50.0 - 70.0 % | [facility] | | | % | | | LABORATORY | | | | | | SERVICES, | | | | | | CORE | | + + + + + + | LYMPHOCYTE | 92.4 (H) | 18.0 - 42.0 % | [facility] | | | % | | | LABORATORY | | | | | | SERVICES, | | | | | | CORE | | + + + + + + | MONOCYTE % | 3.3 (L) | 3.5 - 9.0 % | [facility] [...] + + + + | LYMPHOCYTE | 0.48 (L) | 1.00 - 4.80 | [facility] | | | # | | K/cu mm | LABORATORY | | | | | | SERVICES, | | | | | | CORE | | + + + + + + | MONOCYTE # | 0.02 (L) | 0.10 - 0.90 | [facility] [...] + | [facility] | [address] | [place] [address] | | | SERVICES, CORE | [address] | | | + + + + + CBC AND AUTO DIFF (06/06/2015 12:40 AM PST) + + + + + + | Component | Value | Ref Range | Performed | Pathologist | | | | | At | Signature | + + + + + + | WHITE CELL | 0.52 (L) | 4.40 - 11.00 | [facility] | | | COUNT | | K/cu mm | LABORATORY | | | | | | SERVICES, | | | | | | CORE | | + + + + + + | RED CELL | 2.19 (L) | 4.50 - 6.00 | [facility] [...] + + + + | HEMATOCRIT | 20.0 (L) | 41.0 - 53.0 % | [facility] | | | | | | LABORATORY | | | | | | SERVICES, | | | | | | CORE | | + + + + + + | MCV | 91.3 | 80.0 - 96.0 fL | [facility] [...] + + + | RDW SD | 43.1 | 35.1 - 46.3 fL | [facility] [...] + + + + | MPV | 10.8 | 9.7 - 12.3 fL | [facility] [...] [facility] | [address] | [place] [address] | | | SERVICES, INDRA | [address] | | | + + + + + PHOSPHORUS, PLASMA (06/06/2015 12:40 AM PST) + +-------+ + + + [...] + | [facility] | [address] | [place] [address] | | | SERVICES, CORE | [address] | | | + + + + + MAGNESIUM, PLASMA (06/06/2015 12:40 AM PST) + +-------+ + + + [...] [facility] | [address] | [place] [address] | | | KOLE, CORE | [address] | | | + + + + + COMPLETE METABOLIC SET (NA,K,CL,CO2,BUN,CREAT,GLUC,CA,AST,ALT,BILI TOTAL,ALK PHOS,ALB,PROT TOTAL) (06/06/2015 12:40 AM PST) + +---------+ + + + [...] | | | LABORATORY | | | DUTCH | | | SERVICES, | | | | | | CORE | | + +---------+ + + + | EGFR NON | >60 | >60 mL/min | [facility] | | | -[facility] | | | LABORATORY | | | RICAN | | | SERVICES, | | | | | | CORE | | + +---------+ + + + | SODIUM, | 135 (L) | 136 - 145 | [facility] [...] + + + | ALK PHOS | 46 (L) | 53 - 128 U/L | [...] + | [facility] | [address] | [place] [address] | | | INDRA SHARIF | [address] | | | + + + + + CT SINUS WO CONTRAST ROUTINE (LANDMARX PROTOCOL) (06/05/2015 4:19 PM PST) + + + + + + | Component | Value | Ref Range | Performed | Pathologist | | | | | At | Signature | + + + + + + | CT SINUS | CT SINUS LANDMARK | | | | | LANDMARX | WITHOUT CONTRAST, | | | | | PROTOCOL WO | 06/05/15 16:19:00 | | | | | | INDICATION: Rule out | | | | | | sinusitis in patient | | | | | | with AMLCOMPARISON: | | | | | | NoneTECHNIQUE: | | | | | | High-resolution axial | | | | | | and/or coronal CT images | | | | | | of the | | | | | | maxillofacialregion were | | | | | | obtained without | | | | | | contrast, using 2D | | | | | | reformations as | | | | | | needed.Portions of the | | | | | | brain, skull base, and | | | | | | upper neck were also | | | | | | included in theimaging | | | | | | field.ADDITIONAL | | | | | | TECHNIQUE: None | | | | | | FINDINGS: Soft | | | | | | tissues: Unremarkable | | | | | | Brain: Visualized | | | | | | portions unremarkable. | | | | | | Skull/Skull base: No | | | | | | fractures, deformities, | | | | | | or masses in the | | | | | | visualizedportions. | | | | | | Orbits: Globes intact. | | | | | | No fractures, | | | | | | deformities, or masses. | | | | | | Sinuses: There is | | | | | | circumferential mucosal | | | | | | thickening in the | | | | | | inferior rightmaxillary | | | | | | sinus. No fluid levels | | | | | | are identified. There is | | | | | | minimal | | | | | | mucosalthickening in the | | | | | | left sphenoid sinus. | | | | | | There is opacification | | | | | | of the rightmaxillary | | | | | | infundibulum. Left | | | | | | maxillary infundibulum | | | | | | is patent. The remainder | | | | | | ofthe paranasal sinuses | | | | | | are clear Midface: No | | | | | | fractures, deformities, | | | | | | or masses. Mandible: | | | | | | No fractures, | | | | | | deformities, or masses. | | | | | | Oral Cavity/Pharynx: | | | | | | No masses. Normal | | | | | | parotid and | | | | | | submandibular glands. | | | | | | Lymph nodes: No | | | | | | pathologically enlarged | | | | | | nodes. Additional | | | | | | Comments: None | | | | | | IMPRESSION:Mucosal | | | | | | thickening of the right | | | | | | maxillary and left | | | | | | sphenoid sinus as | | | | | | describedabove. No fluid | | | | | | levels identified. No | | | | | | bone destruction.. | | | | | | Attending Radiologists: | | | | | | ARTIE SALDAÑA, | | | | | | MDAuthor: ARTIE | | | | | | MD PIOTR I personally | | | | | | reviewed the images | | | | | | and, if necessary, | | | | | | edited the report. I | | | | | | agreewith the report as | | | | | | now presented. | | | | | | Final/Electronically | | | | | | signed / ARTIE | | | | | | PIOTR 06/05/2015 19:10 | | | | | | PM | | | | + + + + + + + + | Specimen | + + | | + + + +---------+ + + | Performing | Address | City/State/Zipcode | Phone Number | | Organization | | | | + +---------+ + + | [facility] | | | | | [facility] | | | | + +---------+ + + VASC LAB VENOUS DUPLEX UPPER EXTREMITY LT (06/05/2015 3:24 PM PST) + + + + + + | Component | Value | Ref Range | Performed | Pathologist | | | | | At | Signature | + + + + + + | VASC LAB | Left: The duplex scanner | | | | | VENOUS | was used to examine the | | | | | DUPLEX | internal jugular, | | | | | UPPER | subclavian,axillary, | | | | | EXTREMITY | brachial, cephalic and | | | | | LEFT | basilic veins on the | | | | | | left side.The left | | | | | | basilic vein is non | | | | | | compressible. Thrombus | | | | | | in the basilic vein | | | | | | appearsto be surrounding | | | | | | the Peripherally | | | | | | Inserted Central | | | | | | Catheter (PICC) line of | | | | | | theleft upper extremity. | | | | | | All other veins appear | | | | | | patent with normal flows | | | | | | andresponses to | | | | | | augmentation and | | | | | | compression maneuvers | | | | | | and there is no | | | | | | thrombusnoted. | | | | | | Conclusions: An abnormal | | | | | | venous examination of | | | | | | the left upper extremity | | | | | | withevidence of | | | | | | superficial venous | | | | | | thrombosis of the | | | | | | basilic vein in | | | | | | associationwith a PICC | | | | | | line. There is no | | | | | | evidence of deep venous | | | | | | thrombosis in the | | | | | | leftupper extremity.The | | | | | | right arm was not | | | | | | examined. Attending | | | | | | Radiologists: TAINA | | | | | | MONETA, MDAuthor: | | | | | | TAINA SANCHEZ MD I | | | | | | have personally viewed | | | | | | this procedure/exam, | | | | | | reviewed this report, | | | | | | and madechanges to it | | | | | | where appropriate. | | | | | | Final/Electronically | | | | | | signed / TAINA | | | | | | LAURA 06/07/2015 8:04 | | | | | | AM Result modified / | | | | | | TAINA SANCHEZ | | | | | | 06/05/2015 15:25 PM | | | | | | Preliminary / | | | | | | TAINA SANCHEZ | | | | | | 06/05/2015 15:16 PM | | | | + + [...] | | | + +---------+ + + PRODUCT - PLATELET PHERESIS LEUKOREDUCED (06/05/2015 2:00 AM PST) + + + + [...] + + + + | PRODUCT | [id number] | | [facility] | | | UNIT [...] + + + + | EXPIRATION | [id number] | | [facility] | | | DATE [...] + + + + | BLOOD | [id number] | | [facility] | | | PRODUCT [...] DEPARTMENT OF | [address] | [place] [address] | | | PATHOLOGY | [address] | | | + + + + + MANUAL DIFFERENTIAL (06/05/2015 12:09 AM PST) + + + + + + | Component | Value | Ref Range | Performed | Pathologist | | | | | At | Signature | + + + + + + | NEUTROPHIL | 1.0 (L) | 50.0 - 70.0 % | [facility] | | | % | | | LABORATORY | | | | | | SERVICES, | | | | | | CORE | | + + + + + + | LYMPHOCYTE | 74.0 (H) | 18.0 - 42.0 % | [facility] | | | % | | | LABORATORY | | | | | | SERVICES, | | | | | | CORE | | + + + + + + | MONOCYTE % | 15.0 (H) | 3.5 - 9.0 % | [...] + + + + | REACTIVE | 9.0 | 0.0 - 10.0 % | [facility] [...] + + + + | LYMPHOCYTE | 0.47 (L) | 1.00 - 4.80 | [facility] | | | # | | K/cu mm | LABORATORY | | | | | | SERVICES, | | | | | | CORE | | + + + + + + | MONOCYTE # | 0.10 | 0.10 - 0.90 | [facility] | [...] + + + + | REACTIVE | 0.06 | K/cu mm | [facility] [...] + + + + + | [facility] | [address] | [place] [address] | | | SERVICES, CORE | [address] | | | + + + + + CBC AND AUTO DIFF (06/05/2015 12:09 AM PST) + + + + + + | Component | Value | Ref Range | Performed | Pathologist | | | | | At | Signature | + + + + + + | WHITE CELL | 0.64 (L) | 4.40 - 11.00 | [facility] [...] + + + + | MCV | 92.7 | 80.0 - 96.0 fL | [facility] | | | | | | LABORATORY | | | | | | SERVICES, | | | | | | CORE | | + + + + + + | MCHC | 34.9 | 33.0 - 35.5 | [facility] | | | | | g/dL | LABORATORY | | | | | | SERVICES, | | | | | | CORE | | + + + + + + | RDW SD | 45.2 | 35.1 - 46.3 fL | [facility] [...] + + + + | MPV | 12.0 | 9.7 - 12.3 fL | [facility] [...] [facility] | [address] | [place] [address] | | | SERVICES, CORE | [address] | | | + + + + + PHOSPHORUS, PLASMA (06/05/2015 12:09 AM PST) + +-------+ + + + | Component | Value | Ref Range | Performed | Pathologist | | | | | At | Signature | + +-------+ + + + | PHOSPHORUS, | 2.7 | 2.4 - 4.7 mg/dL | [facility] | | | PLASMA | | | [...] | + + + + + | [facility] | [address] | [place] [address] | | | SERVICES, CORE | [address] | | | + + + + + MAGNESIUM, PLASMA (06/05/2015 12:09 AM PST) + +-------+ + + + | Component | Value | Ref Range | Performed | Pathologist | | | | | At | Signature | + +-------+ + + + | MAGNESIUM,P | 1.9 | 1.8 - 2.5 mg/dL | [facility] | | | [facility] | | | LABORATORY | | | [...] [facility] | [address] | [place] [address] | | | KOLE, INDRA | [address] | | | + + + + + COMPLETE METABOLIC SET (NA,K,CL,CO2,BUN,CREAT,GLUC,CA,AST,ALT,BILI TOTAL,ALK PHOS,ALB,PROT TOTAL) (06/05/2015 12:09 AM PST) + +---------+ + + + [...] | | | LABORATORY | | | DUTCH | | | SERVICES, | | | | | | CORE | | + +---------+ + + + | EGFR NON | >60 | >60 mL/min | [facility] | | | -JOANNE | | | LABORATORY | | | RICAN | | | SERVICES, | | | | | | CORE | | + +---------+ + + + | SODIUM, | 134 (L) | 136 - 145 | [facility] [...] +---------+ + + + | ALBUMIN, | 3.3 (L) | 3.5 - 4.7 g/dL | [facility] | | | PLASMA | | | LABORATORY | | | (LAB) | | | SERVICES, | | | | | | CORE | | + +---------+ + + + | ALK PHOS | 43 (L) | 53 - 128 U/L | [...] | + + + + + | [facility] | [address] | [place] [address] | | | KOLE, INDRA | [address] | | | + + + + + RBC MORPHOLOGY (06/03/2015 11:25 PM PST) + + | Specimen | + + | Blood - Blood | | (substance) | + + + + + + + | Performing | Address | City/State/Zipcode | Phone Number | | Organization | | | | + + + + + | [facility] | [address] | [place] [address] | | | SERVICES, CORE | [address] | | | + + + + + MANUAL DIFFERENTIAL (06/03/2015 11:25 PM PST) + + + + + + | Component | Value | Ref Range | Performed | Pathologist | | | | | At | Signature | + + + + + + | NEUTROPHIL | 20.9 (L) | 50.0 - 70.0 % | [facility] | | | % | | | LABORATORY | | | | | | SERVICES, | | | | | | CORE | | + + + + + + | LYMPHOCYTE | 55.9 (H) | 18.0 - 42.0 % | [facility] | | | % | | | LABORATORY | | | | | | SERVICES, | | | | | | CORE | | + + + + + + | MONOCYTE % | 19.8 (H) | 3.5 - 9.0 % | [...] + + + | BASOPHIL % | 0.6 | 0.0 - 2.0 % [...] + + + + | ATYPICAL | 1.1 (H)Comment: Atypical | 0.0 % | [facility] | | | CELL % | Cells with fine | | LABORATORY | | | | chromatin, high N-C | | SERVICES, | | | | ratio, prominent | | CORE | | | | nucleoli and dark blue | | | | | | cytoplasm. | | | | + + + + + + | REACTIVE | 1.1Comment: Fewer than | 0.0 - 10.0 % [...] + + + + | LYMPHOCYTE | 0.58 (L) | 1.00 - 4.80 | [facility] | | | # | | K/cu mm | LABORATORY | | | | | | SERVICES, | | | | | | CORE | | + + + + + + | MONOCYTE # | 0.21 | 0.10 - 0.90 | [facility] | [...] + + + + | ATYPICAL | 0.01 | K/cu mm | [facility] | | | CELLS # | | | LABORATORY | | | | | | SERVICES, | | | | | | CORE | | + + + + + + | REACTIVE | 0.01 | K/cu mm | [facility] | | [...] + + + + + | [facility] | [address] | [place] [address] | | | SERVICESINDRA | [address] | | | + + + + + CBC AND AUTO DIFF (06/03/2015 11:25 PM PST) + + + + + + | Component | Value | Ref Range | Performed | Pathologist | | | | | At | Signature | + + + + + + | WHITE CELL | 1.04 (L) | 4.40 - 11.00 | [facility] | | | COUNT | | K/cu mm | LABORATORY | | | | | | SERVICES, | | | | | | CORE | | + + + + + + | RED CELL | 2.51 (L) | 4.50 - 6.00 | [facility] [...] + + + + | HEMATOCRIT | 23.4 (L) | 41.0 - 53.0 % | [facility] | | | | | | LABORATORY | | | | | | SERVICES, | | | | | | CORE | | + + + + + + | MCV | 93.2 | 80.0 - 96.0 fL | [facility] [...] + + + | RDW SD | 46.6 (H) | 35.1 - 46.3 fL | [...] [facility] | [address] | [place] [address] | | | SERVICES, CORE | [address] | | | + + + + + PHOSPHORUS, PLASMA (06/03/2015 11:25 PM PST) + +-------+ + + + [...] [facility] | [address] | [place] [address] | | | SERVICES, CORE | [address] | | | + + + + + MAGNESIUM, PLASMA (06/03/2015 11:25 PM PST) + +-------+ + + + [...] [facility] | [address] | [place] [address] | | | SERVICES, CORE | [address] | | | + + + + + COMPLETE METABOLIC SET (NA,K,CL,CO2,BUN,CREAT,GLUC,CA,AST,ALT,BILI TOTAL,ALK PHOS,ALB,PROT TOTAL) (06/03/2015 11:25 PM PST) + +---------+ + + + [...] +---------+ + + + | CREATININE | 0.84 | 0.70 - 1.30 | [facility] | | | PLASMA | | mg/dL | LABORATORY | | | (LAB) | | | SERVICES, | | | | | | CORE | | + +---------+ + + + | EGFR | >60 | >60 mL/min | [facility] | | | - | | | LABORATORY | | | DUTCH | | | SERVICES, | | | [...] + + + | ALK PHOS | 43 (L) | 53 - 128 U/L | [...] + + + + + | [facility] | [address] | [place] [address] | | | KOLE, INDRA | [address] | | | + + + + + VRE (DIAZ) BY PCR (06/03/2015 11:42 AM PST) + + + + + [...] | + + + + + | [facility] | [address] | [place] [address] | | | SERVICES, CORE | [address] | | | + + + + + RBC MORPHOLOGY (06/02/2015 11:45 PM PST) + + | Specimen | + + | Blood - Blood | | (substance) | + + + + + + + | Performing | Address | City/State/Zipcode | Phone Number | | Organization | | | | + + + + + | [facility] | [address] | [place] [address] | | | SERVICES, CORE | [address] | | | + + + + + MANUAL DIFFERENTIAL (06/02/2015 11:45 PM PST) + + + + + + | Component | Value | Ref Range | Performed | Pathologist | | | | | At | Signature | + + + + + + | NEUTROPHIL | 11.5 (L) | 50.0 - 70.0 % | [facility] | | | % | | | LABORATORY | | | | | | SERVICES, | | | | | | CORE | | + + + + + + | LYMPHOCYTE | 57.5 (H) | 18.0 - 42.0 % | [facility] | | | % | | | LABORATORY | | | | | | SERVICES, | | | | | | CORE | | + + + + + + | MONOCYTE % | 23.9 (H) | 3.5 - 9.0 % | [...] + + + + | ATYPICAL | 5.3 (HH)Comment: | 0.0 % | [facility] | | | CELL % | Atypical Cells with fine | | LABORATORY | | | | chromatin, high N-C | | SERVICES, | | | | ratio, prominent | | CORE | | | | nucleoli and dark blue | | | | | | cytoplasm. | | | | + + + + + + | NEUTROPHIL | 0.14 (L) | 1.80 - 7.70 | [facility] | | | # | | K/cu mm | LABORATORY | | | | | | SERVICES, | | | | | | CORE | | + + + + + + | LYMPHOCYTE | 0.69 (L) | 1.00 - 4.80 | [facility] | | | # | | K/cu mm | LABORATORY | | | | | | SERVICES, | | | | | | CORE | | + + + + + + | MONOCYTE # | 0.29 | 0.10 - 0.90 | [facility] | | | | | K/cu mm | LABORATORY | | | | | | SERVICES, | | | | | | CORE | | + + + + + + | EOSINOPHIL | 0.02 | 0.00 - 0.50 | [...] [facility] | [address] | [place] [address] | | | INDRA SHARIF | [address] | | | + + + + + CBC AND AUTO DIFF (06/02/2015 11:45 PM PST) + + + + [...] + + + + | MCV | 93.1 | 80.0 - 96.0 fL | [facility] [...] + + + | RDW SD | 47.1 (H) | 35.1 - 46.3 fL | [facility] | | | | | | LABORATORY | | | | | | SERVICES, | | | | | | CORE | | + + + + + + | PLATELET | 24 (L) | 150 - 400 K/cu | [...] | + + + + + | [facility] | [address] | [place] [address] | | | SERVICES, CORE | [address] | | | + + + + + LDH TOTAL, PLASMA (06/02/2015 11:45 PM PST) + +---------+ + + + | Component | Value | Ref Range | Performed | Pathologist | | | | | At | Signature | + +---------+ + + + | LD TOTAL, | 156 | <=250 U/L | [facility] | | [...] [facility] | [address] | [place] [address] | | | SERVICES, CORE | [address] | | | + + + + + PHOSPHORUS, PLASMA (06/02/2015 11:45 PM PST) + +-------+ + + [...] [facility] | [address] | [place] [address] | | | SERVICES, INDRA | [address] | | | + + + + + MAGNESIUM, PLASMA (06/02/2015 11:45 PM PST) + +-------+ + + [...] + | [facility] | [address] | [place] [address] | | | SERVICES, CORE | [address] | | | + + + + + COMPLETE METABOLIC SET (NA,K,CL,CO2,BUN,CREAT,GLUC,CA,AST,ALT,BILI TOTAL,ALK PHOS,ALB,PROT TOTAL) (06/02/2015 11:45 PM PST) + +---------+ + + [...] | | | LABORATORY | | | DUTCH | | | SERVICES, | | | [...] +---------+ + + + | CALCIUM, | 7.9 [...] +---------+ + + + | TOTAL | 5.9 (L) | 6.4 - 8.2 g/dL | [facility] | | | PROTEIN, | | | LABORATORY | | | PLASMA | | | SERVICES, | | | (LAB) | | | CORE | | + +---------+ + + + | ALBUMIN, | 3.2 (L) | 3.5 - 4.7 g/dL | [facility] | | | PLASMA | | | LABORATORY | | | (LAB) | | | SERVICES, | | | | | | CORE | | + +---------+ + + + | ALK PHOS | 41 (L) | 53 - 128 U/L | [...] + + + | ANION GAP | 4 | mmol/L | [facility] | | | [...] + | [facility] | [address] | [place] [address] | | | SERVICES, CORE | [address] | | | + + + + + MANUAL DIFFERENTIAL (06/01/2015 11:35 PM PST) + + + + + + | Component | Value | Ref Range | Performed | Pathologist | | | | | At | Signature | + + + + + + | NEUTROPHIL | 11.0 (L) | 50.0 - 70.0 % | [facility] | | | % | | | LABORATORY | | | | | | SERVICES, | | | | | | CORE | | + + + + + + | LYMPHOCYTE | 41.5 | 18.0 - 42.0 % | [facility] | | | % | | | LABORATORY | | | | | | SERVICES, | | | | | | CORE | | + + + + + + | MONOCYTE % | 39.0 (H) | 3.5 - 9.0 % | [...] + + + | ATYPICAL | 1.7 (H)Comment: Atypical | 0.0 % | [facility] | | | CELL % | Cells with fine | | LABORATORY | | | | chromatin, high N-C | | SERVICES, | | | | ratio, prominent | | CORE | | | | nucleoli and dark blue | | | | | | cytoplasm. | | | | + + + + + + | REACTIVE | 5.9 | 0.0 - 10.0 % | [facility] | | | LYMPHS % | | | LABORATORY | | | | | | SERVICES, | | | | | | CORE | | + + + + + + | NEUTROPHIL | 0.23 (L) | 1.80 - 7.70 | [facility] | | | # | | K/cu mm | LABORATORY | | | | | | SERVICES, | | | | | | CORE | | + + + + + + | LYMPHOCYTE | 0.86 (L) | 1.00 - 4.80 | [facility] [...] + + + | BASOPHIL # | 0.02 | 0.00 - 0.10 [...] + + + + + | [facility] | [address] | [place] [address] | | | SERVICES, INDRA | [address] | | | + + + + + CBC AND AUTO DIFF (06/01/2015 11:35 PM PST) + + + + + + | Component | Value | Ref Range | Performed | Pathologist | | | | | At | Signature | + + + + + + | WHITE CELL | 2.08 (L) | 4.40 - 11.00 | [facility] | | | COUNT | | K/cu mm | LABORATORY | | | | | | SERVICES, | | | | | | CORE | | + + + + + + | RED CELL | 2.96 (L) | 4.50 - 6.00 | [facility] | | | COUNT | | M/cu mm | LABORATORY | | | | | | SERVICES, | | | | | | CORE | | + + + + + + | HEMOGLOBIN | 9.5 (L) | 13.5 - 17.5 | [facility] | | | | | g/dL | LABORATORY | | | | | | SERVICES, | | | | | | CORE | | + + + + + + | HEMATOCRIT | 27.8 (L) | 41.0 - 53.0 % | [facility] | | | | | | LABORATORY | | | | | | SERVICES, | | | | | | CORE | | + + + + + + | MCV | 93.9 | 80.0 - 96.0 fL | [facility] | | | | | | LABORATORY | | | | | | SERVICES, | | | | | | CORE | | + + + + + + | MCHC | 34.2 | 33.0 - 35.5 | [facility] | | | | | g/dL | LABORATORY | | | | | | SERVICES, | | | | | | CORE | | + + + + + + | RDW SD | 46.8 (H) | 35.1 - 46.3 fL | [facility] | | | | | | LABORATORY | | | | | | SERVICES, | | | | | | CORE | | + + + + + + | PLATELET | 46 (L) | 150 - 400 K/cu | [...] + | [facility] | [address] | [place] [address] | | | SERVICES, CORE | [address] | | | + + + + + PHOSPHORUS, PLASMA (06/01/2015 11:35 PM PST) + +-------+ + + + [...] + + + + + | [facility] | [address] | [place] [address] | | | SERVICES, CORE | [address] | | | + + + + + MAGNESIUM, PLASMA (06/01/2015 11:35 PM PST) + +-------+ + + + [...] [facility] | [address] | [place] [address] | | | SERVICES, CORE | [address] | | | + + + + + COMPLETE METABOLIC SET (NA,K,CL,CO2,BUN,CREAT,GLUC,CA,AST,ALT,BILI TOTAL,ALK PHOS,ALB,PROT TOTAL) (06/01/2015 11:35 PM PST) + +---------+ + + + [...] +---------+ + + + | CREATININE | 0.83 | 0.70 - 1.30 | [facility] | | | PLASMA | | mg/dL | LABORATORY | | | (LAB) | | | SERVICES, | | | | | | CORE | | + +---------+ + + + | EGFR | >60 | >60 mL/min | [facility] | | | - | | | LABORATORY | | | DUTCH | | | SERVICES, | | | [...] + + + | ALK PHOS | 44 (L) | 53 - 128 U/L | [...] the MDRD equation recommended by the | [facility] | | National Kidney Disease Education Program. [...] + + + + + | [facility] | [address] | [place] [address] | | | KOLE, CORE | [address] | | | + + + + + MANUAL DIFFERENTIAL (05/31/2015 11:41 PM PST) + + + + + + | Component | Value | Ref Range | Performed | Pathologist | | | | | At | Signature | + + + + + + | NEUTROPHIL | 10.0 (L) | 50.0 - 70.0 % | [facility] | | | % | | | LABORATORY | | | | | | SERVICES, | | | | | | CORE | | + + + + + + | LYMPHOCYTE | 26.8 | 18.0 - 42.0 % | [facility] | | | % | | | LABORATORY | | | | | | SERVICES, | | | | | | CORE | | + + + + + + | MONOCYTE % | 46.4 (H) | 3.5 - 9.0 % | [...] + + + | BASOPHIL % | 0.6 | 0.0 - 2.0 % [...] + + + + | ATYPICAL | 11.7 ()Comment: | 0.0 % | [facility] | | | CELL % | Atypical Cells with fine | | LABORATORY | | | | chromatin, high N-C | | SERVICES, | | | | ratio, prominent | | CORE | | | | nucleoli and dark blue | | | | | | cytoplasm. | | | | + + + + + + | REACTIVE | 4.5 | 0.0 - 10.0 % | [facility] | | | LYMPHS % | | | LABORATORY | | | | | | SERVICES, | | | | | | CORE | | + + + + + + | NEUTROPHIL | 0.24 (L) | 1.80 - 7.70 | [facility] | | | # | | K/cu mm | LABORATORY | | | | | | SERVICES, | | | | | | CORE | | + + + + + + | LYMPHOCYTE | 0.64 (L) | 1.00 - 4.80 | [facility] | | | # | | K/cu mm | LABORATORY | | | | | | SERVICES, | | | | | | CORE | | + + + + + + | MONOCYTE # | 1.10 (H) | 0.10 - 0.90 | [facility] [...] + + + + | ATYPICAL | 0.28 | K/cu mm | [facility] | | | CELLS # | | | LABORATORY | | | | | | SERVICES, | | | | | | CORE | | + + + + + + | REACTIVE | 0.11 | K/cu mm | [facility] | | [...] [facility] | [address] | [place] [address] | | | SERVICES, CORE | [address] | | | + + + + + CBC AND AUTO DIFF (05/31/2015 11:41 PM PST) + + + + + + | Component | Value | Ref Range | Performed | Pathologist | | | | | At | Signature | + + + + + + | WHITE CELL | 2.37 (L) | 4.40 - 11.00 | [facility] | | | COUNT | | K/cu mm | LABORATORY | | | | | | SERVICES, | | | | | | CORE | | + + + + + + | RED CELL | 2.91 (L) | 4.50 - 6.00 | [facility] | | | COUNT | | M/cu mm | LABORATORY | | | | | | SERVICES, | | | | | | CORE | | + + + + + + | HEMOGLOBIN | 9.6 (L) | 13.5 - 17.5 | [facility] | | | | | g/dL | LABORATORY | | | | | | SERVICES, | | | | | | CORE | | + + + + + + | HEMATOCRIT | 27.1 (L) | 41.0 - 53.0 % | [facility] | | | | | | LABORATORY | | | | | | SERVICES, | | | | | | CORE | | + + + + + + | MCV | 93.1 | 80.0 - 96.0 fL | [facility] [...] [facility] | [address] | [place] [address] | | | SERVICES, CORE | [address] | | | + + + + + PHOSPHORUS, PLASMA (05/31/2015 11:41 PM PST) + +-------+ + + + | Component | Value | Ref Range | Performed | Pathologist | | | | | At | Signature | + +-------+ + + + | PHOSPHORUS, | 3.6 | 2.4 - 4.7 mg/dL | [facility] [...] + + + + + | [facility] | [address] | [place] [address] | | | KOLE, INDRA | [address] | | | + + + + + MAGNESIUM, PLASMA (05/31/2015 11:41 PM PST) + +-------+ + + + | Component | Value | Ref Range | Performed | Pathologist | | | | | At | Signature | + +-------+ + + + | MAGNESIUM,P | 2.0 | 1.8 - 2.5 mg/dL | [facility] | | | CHRISSYMA | | | [...] + + + + + | [facility] | [address] | [place] [address] | | | SERVICES, CORE | [address] | | | + + + + + COMPLETE METABOLIC SET (NA,K,CL,CO2,BUN,CREAT,GLUC,CA,AST,ALT,BILI TOTAL,ALK PHOS,ALB,PROT TOTAL) (05/31/2015 11:41 PM PST) + +---------+ + + + | Component | Value | Ref Range | Performed | Pathologist | | | | | At | Signature | + +---------+ + + + | GLUCOSE, | 99 | 60 - 99 mg/dL | [facility] [...] +---------+ + + + | CREATININE | 0.74 | 0.70 - 1.30 | [facility] | | | PLASMA | | mg/dL | LABORATORY | | | (LAB) | | | SERVICES, | | | | | | CORE | | + +---------+ + + + | EGFR | >60 | >60 mL/min | [facility] | | | - | | | LABORATORY | | | DUTCH | | | SERVICES, | | | [...] +---------+ + + + | CHLORIDE, | 111 [...] +---------+ + + + | TOTAL | 6.0 [...] + + + | ALK PHOS | 37 (L) | 53 - 128 U/L | [...] + | [facility] | [address] | [place] [address] | | | SERVICES, CORE | [address] | | | + + + + + MANUAL DIFFERENTIAL (05/31/2015 12:27 AM PST) + + + + + + | Component | Value | Ref Range | Performed | Pathologist | | | | | At | Signature | + + + + + + | NEUTROPHIL | 11.5 (L) | 50.0 - 70.0 % | [...] + + + | MONOCYTE % | 36.3 (H) | 3.5 - 9.0 % | [...] + + + + | ATYPICAL | 15.9 ()Comment: | 0.0 % | [facility] | | | CELL % | Atypical Cells with fine | | LABORATORY | | | | chromatin, high N-C | | SERVICES, | | | | ratio, prominent | | CORE | | | | nucleoli and dark blue | | | | | | cytoplasm. | | | | + + + + + + | NEUTROPHIL | 0.52 (L) | 1.80 - 7.70 | [facility] | | | # | | K/cu mm | LABORATORY | | | | | | SERVICES, | | | | | | CORE | | + + + + + + | LYMPHOCYTE | 1.64 | 1.00 - 4.80 | [facility] | | | # | | K/cu mm | LABORATORY | | | | | | SERVICES, | | | | | | CORE | | + + + + + + | MONOCYTE # | 1.64 (H) | 0.10 - 0.90 | [facility] [...] + + + + | ATYPICAL | 0.72 | K/cu mm | [facility] | | [...] [facility] | [address] | [place] [address] | | | SERVICES, CORE | [address] | | | + + + + + CBC AND AUTO DIFF (05/31/2015 12:27 AM PST) + + + + + + | Component | Value | Ref Range | Performed | Pathologist | | | | | At | Signature | + + + + + + | WHITE CELL | 4.53 | 4.40 - 11.00 | [facility] | | | COUNT | | K/cu mm | LABORATORY | | | | | | SERVICES, | | | | | | CORE | | + + + + + + | RED CELL | 2.91 (L) | 4.50 - 6.00 | [facility] | | | COUNT | | M/cu mm | LABORATORY | | | | | | SERVICES, | | | | | | CORE | | + + + + + + | HEMOGLOBIN | 9.3 (L) | 13.5 - 17.5 | [facility] | | | | | g/dL | LABORATORY | | | | | | SERVICES, | | | | | | CORE | | + + + + + + | HEMATOCRIT | 27.9 (L) | 41.0 - 53.0 % | [facility] | | | | | | LABORATORY | | | | | | SERVICES, | | | | | | CORE | | + + + + + + | MCV | 95.9 | 80.0 - 96.0 fL | [facility] [...] + + + | RDW SD | 50.1 (H) | 35.1 - 46.3 fL | [facility] | | | | | | LABORATORY | | | | | | SERVICES, | | | | | | CORE | | + + + + + + | PLATELET | 64 (L) | 150 - 400 K/cu | [facility] | | | COUNT | | mm | LABORATORY | | | | | | SERVICES, | | | | | | CORE | | + + + + + + | MPV | 9.3 (L) | 9.7 - 12.3 [...] [facility] | [address] | [place] [address] | | | SERVICES, CORE | [address] | | | + + + + + LDH TOTAL, PLASMA (05/31/2015 12:27 AM PST) + +---------+ + + + [...] [facility] | [address] | [place] [address] | | | SERVICES, CORE | [address] | | | + + + + + PHOSPHORUS, PLASMA (05/31/2015 12:27 AM PST) + +-------+ + + + [...] + | [facility] | [address] | [place] [address] | | | SERVICES, CORE | [address] | | | + + + + + MAGNESIUM, PLASMA (05/31/2015 12:27 AM PST) + +-------+ + + + [...] [facility] | [address] | [place] [address] | | | SERVICES, CORE | [address] | | | + + + + + COMPLETE METABOLIC SET (NA,K,CL,CO2,BUN,CREAT,GLUC,CA,AST,ALT,BILI TOTAL,ALK PHOS,ALB,PROT TOTAL) (05/31/2015 12:27 AM PST) + +---------+ + + + [...] +---------+ + + + | CREATININE | 0.74 | 0.70 - 1.30 | [facility] | | | PLASMA | | mg/dL | LABORATORY | | | (LAB) | | | SERVICES, | | | | | | CORE | | + +---------+ + + + | EGFR | >60 | >60 mL/min | [facility] | | | - | | | LABORATORY | | | DUTCH | | | SERVICES, | | | [...] +---------+ + + + | CHLORIDE, | 112 [...] +---------+ + + + | CALCIUM, | 7.7 [...] +---------+ + + + | ALBUMIN, | 3.1 (L) | 3.5 - 4.7 g/dL | [facility] | | | PLASMA | | | LABORATORY | | | (LAB) | | | SERVICES, | | | | | | CORE | | + +---------+ + + + | ALK PHOS | 38 (L) | 53 - 128 U/L | [...] Interpretive Information: <60 mL/min/1.73 sq m | [facility] | | Chronic Kidney Disease <15 [...] + + + + + | [facility] | [address] | [place] [address] | | | INDRA SHARIF | [address] | | | + + + + + URIC ACID, PLASMA (05/31/2015 12:27 AM PST) + +-------+ + + + | Component | Value | Ref Range | Performed | Pathologist | | | | | At | Signature | + +-------+ + + + | URIC ACID, | 3.9 | 3.7 - 8.0 mg/dL | [facility] [...] | + + + + + | [facility] | [address] | [place] [address] | | | SERVICES, CORE | [address] | | | + + + + + MANUAL DIFFERENTIAL (05/29/2015 11:10 PM PST) + + + + + + | Component | Value | Ref Range | Performed | Pathologist | | | | | At | Signature | + + + + + + | NEUTROPHIL | 19.8 (L) | 50.0 - 70.0 % | [facility] | | | % | | | LABORATORY | | | | | | SERVICES, | | | | | | CORE | | + + + + + + | LYMPHOCYTE | 23.3 | 18.0 - 42.0 % | [facility] [...] + + + + | ATYPICAL | 25.0 (HH) | 0.0 % | [facility] | | | CELL % | | | LABORATORY | | | | | | SERVICES, | | | | | | CORE | | + + + + + + | NEUTROPHIL | 1.84 | 1.80 - 7.70 | [facility] | | | # | | K/cu mm | LABORATORY | | | | | | SERVICES, | | | | | | CORE | | + + + + + + | LYMPHOCYTE | 2.16 | 1.00 - 4.80 | [facility] | | | # | | K/cu mm | LABORATORY | | | | | | SERVICES, | | | | | | CORE | | + + + + + + | MONOCYTE # | 2.96 (H) | 0.10 - 0.90 | [facility] [...] + + + + | ATYPICAL | 2.32 | K/cu mm | [facility] | | [...] + + + + + | [facility] | [address] | [place] [address] | | | SERVICES, INDRA | [address] | | | + + + + + CBC AND AUTO DIFF (05/29/2015 11:10 PM PST) + + + + + [...] + + + | RED CELL | 3.07 (L) | 4.50 - 6.00 | [facility] | | | COUNT | | M/cu mm | LABORATORY | | | | | | SERVICES, | | | | | | CORE | | + + + + + + | HEMOGLOBIN | 10.0 (L) | 13.5 - 17.5 | [facility] | | | | | g/dL | LABORATORY | | | | | | SERVICES, | | | | | | CORE | | + + + + + + | HEMATOCRIT | 29.1 (L) | 41.0 - 53.0 % | [facility] | | | | | | LABORATORY | | | | | | SERVICES, | | | | | | CORE | | + + + + + + | MCV | 94.8 | 80.0 - 96.0 fL | [facility] | | | | | | LABORATORY | | | | | | SERVICES, | | | | | | CORE | | + + + + + + | MCHC | 34.4 | 33.0 - 35.5 | [facility] | | | | | g/dL | LABORATORY | | | | | | SERVICES, | | | | | | CORE | | + + + + + + | RDW SD | 50.1 (H) | 35.1 - 46.3 fL | [facility] | | | | | | LABORATORY | | | | | | SERVICES, | | | | | | CORE | | + + + + + + | PLATELET | 64 (L) | 150 - 400 K/cu | [facility] | | | COUNT | | mm | LABORATORY | | | | | | SERVICES, | | | | | | CORE | | + + + + + + | MPV | 9.7 | 9.7 - 12.3 fL [...] + | [facility] | [address] | [place] [address] | | | SERVICES, CORE | [address] | | | + + + + + PHOSPHORUS, PLASMA (05/29/2015 11:10 PM PST) + +-------+ + + + [...] + + | [facility] | [address] | [place] [address] | | | SERVICES, CORE | [address] | | | + + + + + MAGNESIUM, PLASMA (05/29/2015 11:10 PM PST) + +-------+ + + + [...] [facility] | [address] | [place] [address] | | | SERVICES, CORE | [address] | | | + + + + + COMPLETE METABOLIC SET (NA,K,CL,CO2,BUN,CREAT,GLUC,CA,AST,ALT,BILI TOTAL,ALK PHOS,ALB,PROT TOTAL) (05/29/2015 11:10 PM PST) + +---------+ + + + | Component | Value | Ref Range | Performed | Pathologist | | | | | At | Signature | + +---------+ + + + | GLUCOSE, | 135 (H) | 60 - 99 mg/dL | [...] | | | LABORATORY | | | DUTCH | | | SERVICES, | | | [...] +---------+ + + + | CHLORIDE, | 111 [...] + + + | ALK PHOS | 42 (L) | 53 - 128 U/L | [...] the MDRD equation recommended by the | [facility] | | National Kidney Disease Education Program. [...] + + + + + | [facility] | [address] | [place] [address] | | | KOLE, INDRA | [address] | | | + + + + + PHOSPHORUS, PLASMA (05/29/2015 7:29 AM PST) + +-------+ + + + [...] [facility] | [address] | [place] [address] | | | SERVICES, CORE | [address] | | | + + + + + URIC ACID, PLASMA (05/29/2015 7:29 AM PST) + +---------+ + + + [...] + | [facility] | [address] | [place] [address] | | | SERVICES, CORE | [address] | | | + + + + + BASIC METABOLIC SET (NA, K, CL, TCO2, BUN, CR, GLU, CA) (05/29/2015 7:29 AM PST) + +---------+ + + + [...] +---------+ + + + | CREATININE | 0.84 | 0.70 - 1.30 | [facility] | | | PLASMA | | mg/dL | LABORATORY | | | (LAB) | | | SERVICES, | | | | | | CORE | | + +---------+ + + + | EGFR | >60 | >60 mL/min | [facility] | | | - | | | LABORATORY | | | DUTCH | | | SERVICES, | | | [...] +---------+ + + + | CHLORIDE, | 112 [...] [facility] | [address] | [place] [address] | | | SERVICES, CORE | [address] | | | + + + + + RBC MORPHOLOGY (05/29/2015 12:30 AM PST) + + + + [...] [facility] | [address] | [place] [address] | | | SERVICES, CORE | [address] | | | + + + + + MANUAL DIFFERENTIAL (05/29/2015 12:30 AM PST) + + + + + + | Component | Value | Ref Range | Performed | Pathologist | | | | | At | Signature | + + + + + + | NEUTROPHIL | 12.1 (L) | 50.0 - 70.0 % | [facility] | | | % | | | LABORATORY | | | | | | SERVICES, | | | | | | CORE | | + + + + + + | LYMPHOCYTE | 15.5 (L) | 18.0 - 42.0 % | [facility] | | | % | | | LABORATORY | | | | | | SERVICES, | | | | | | CORE | | + + + + + + | MONOCYTE % | 31.0 (H) | 3.5 - 9.0 % | [...] + + + + | ATYPICAL | 40.5 ()Comment: | 0.0 % | [facility] | | | CELL % | Atypical Cells with fine | | LABORATORY | | | | chromatin, high N-C | | SERVICES, | | | | ratio, prominent | | CORE | | | | nucleoli and dark blue | | | | | | cytoplasm. | | | | + + + + + + | NEUTROPHIL | 1.97 | 1.80 - 7.70 | [facility] | | | # | | K/cu mm | LABORATORY | | | | | | SERVICES, | | | | | | CORE | | + + + + + + | LYMPHOCYTE | 2.52 | 1.00 - 4.80 | [facility] | | | # | | K/cu mm | LABORATORY | | | | | | SERVICES, | | | | | | CORE | | + + + + + + | MONOCYTE # | 5.03 (H) | 0.10 - 0.90 | [facility] [...] + + + + | IG# | 0.15 (H) | 0.00 - 0.03 | [facility] | | | | | K/cu mm | LABORATORY | | | | | | SERVICES, | | | | | | CORE | | + + + + + + | ATYPICAL | 6.58 | K/cu mm | [facility] | | [...] + + + + + | [facility] | [address] | [place] [address] | | | SERVICES, INDRA | [address] | | | + + + + + CBC AND AUTO DIFF (05/29/2015 12:30 AM PST) + + + + + + | Component | Value | Ref Range | Performed | Pathologist | | | | | At | Signature | + + + + + + | WHITE CELL | 16.24 (H) | 4.40 - 11.00 | [facility] | | | COUNT | | K/cu mm | LABORATORY | | | | | | SERVICES, | | | | | | CORE | | + + + + + + | RED CELL | 3.24 (L) | 4.50 - 6.00 | [facility] | | | COUNT | | M/cu mm | LABORATORY | | | | | | SERVICES, | | | | | | CORE | | + + + + + + | HEMOGLOBIN | 10.6 (L) | 13.5 - 17.5 | [facility] | | | | | g/dL | LABORATORY | | | | | | SERVICES, | | | | | | CORE | | + + + + + + | HEMATOCRIT | 30.5 (L) | 41.0 - 53.0 % | [facility] | | | | | | LABORATORY | | | | | | SERVICES, | | | | | | CORE | | + + + + + + | MCV | 94.1 | 80.0 - 96.0 fL [...] + + + | RDW SD | 49.4 (H) | 35.1 - 46.3 fL | [facility] | | | | | | LABORATORY | | | | | | SERVICES, | | | | | | CORE | | + + + + + + | PLATELET | 80 (L)Comment: Few | 150 - 400 K/cu | [facility] | | | COUNT | platelet clumps present. | mm | LABORATORY | | | | | | SERVICES, | | | | | | CORE | | + + + + + + | MPV | 9.7 | 9.7 - 12.3 fL [...] [facility] | [address] | [place] [address] | | | SERVICES, CORE | [address] | | | + + + + + URIC ACID, PLASMA (05/29/2015 12:30 AM PST) + +---------+ + + + | Component | Value | Ref Range | Performed | Pathologist | | | | | At | Signature | + +---------+ + + + | URIC ACID, | 2.7 (L) | 3.7 - 8.0 mg/dL | [...] [facility] | [address] | [place] [address] | | | SERVICES, CORE | [address] | | | + + + + + PHOSPHORUS, PLASMA (05/29/2015 12:30 AM PST) + +-------+ + + + [...] + | [facility] | [address] | [place] [address] | | | SERVICES, CORE | [address] | | | + + + + + MAGNESIUM, PLASMA (05/29/2015 12:30 AM PST) + +-------+ + + + [...] + + + + + | [facility] | [address] | [place] [address] | | | SERVICES, CORE | [address] | | | + + + + + COMPLETE METABOLIC SET (NA,K,CL,CO2,BUN,CREAT,GLUC,CA,AST,ALT,BILI TOTAL,ALK PHOS,ALB,PROT TOTAL) (05/29/2015 12:30 AM PST) + +---------+ + + + | Component | Value | Ref Range | Performed | Pathologist | | | | | At | Signature | + +---------+ + + + | GLUCOSE, | 130 (H) | 60 - 99 [...] +---------+ + + + | CREATININE | 0.81 | 0.70 - 1.30 | [facility] | | | PLASMA | | mg/dL | LABORATORY | | | (LAB) | | | SERVICES, | | | | | | CORE | | + +---------+ + + + | EGFR | >60 | >60 mL/min | [facility] | | | - | | | LABORATORY | | | DUTCH | | | SERVICES, | | | [...] + + + | ALK PHOS | 45 (L) | 53 - 128 U/L | [...] + | [facility] | [address] | [place] [address] | | | SERVICES, CORE | [address] | | | + + + + + PHOSPHORUS, PLASMA (05/28/2015 3:54 PM PST) + +-------+ + + + [...] [facility] | [address] | [place] [address] | | | SERVICES, INDRA | [address] | | | + + + + + URIC ACID, PLASMA (05/28/2015 3:54 PM PST) + +---------+ + + + | Component | Value | Ref Range | Performed | Pathologist | | | | | At | Signature | + +---------+ + + + | URIC ACID, | 2.9 (L) | 3.7 - 8.0 mg/dL | [...] + + | [facility] | [address] | [place] [address] | | | SERVICES, CORE | [address] | | | + + + + + BASIC METABOLIC SET (NA, K, CL, TCO2, BUN, CR, GLU, CA) (05/28/2015 3:54 PM PST) + +---------+ + + + [...] +---------+ + + + | CREATININE | 0.87 | 0.70 - 1.30 | [facility] | | | PLASMA | | mg/dL | LABORATORY | | | (LAB) | | | SERVICES, | | | | | | CORE | | + +---------+ + + + | EGFR | >60 | >60 mL/min | [facility] | | | - | | | LABORATORY | | | DUTCH | | | SERVICES, | | | [...] the MDRD equation recommended by the | [facility] | | National Kidney Disease Education Program. [...] [facility] | [address] | [place] [address] | | | SERVICES, CORE | [address] | | | + + + + + PHOSPHORUS, PLASMA (05/28/2015 8:08 AM PST) + +-------+ + + + [...] [facility] | [address] | [place] [address] | | | SERVICES, CORE | [address] | | | + + + + + URIC ACID, PLASMA (05/28/2015 8:08 AM PST) + +---------+ + + + | Component | Value | Ref Range | Performed | Pathologist | | | | | At | Signature | + +---------+ + + + | URIC ACID, | 3.2 (L) | 3.7 - 8.0 mg/dL | [...] + | [facility] | [address] | [place] [address] | | | SERVICES, CORE | [address] | | | + + + + + BASIC METABOLIC SET (NA, K, CL, TCO2, BUN, CR, GLU, CA) (05/28/2015 8:08 AM PST) + +---------+ + + + [...] +---------+ + + + | CREATININE | 0.80 | 0.70 - 1.30 | [facility] | | | PLASMA | | mg/dL | LABORATORY | | | (LAB) | | | SERVICES, | | | | | | CORE | | + +---------+ + + + | EGFR | >60 | >60 mL/min | [facility] | | | - | | | LABORATORY | | | DUTCH | | | SERVICES, | | | [...] [facility] | [address] | [place] [address] | | | SERVICES, CORE | [address] | | | + + + + + MANUAL DIFFERENTIAL (05/28/2015 6:20 AM PST) + + + + + + | Component | Value | Ref Range | Performed | Pathologist | | | | | At | Signature | + + + + + + | NEUTROPHIL | 12.2 (L) | 50.0 - 70.0 % | [...] + + + | MONOCYTE % | 23.5 (H) | 3.5 - 9.0 % | [...] + + + + | ATYPICAL | 38.2 (HH) | 0.0 % | [facility] | | | CELL % | | | LABORATORY | | | | | | SERVICES, | | | | | | CORE | | + + + + + + | NEUTROPHIL | 1.93 | 1.80 - 7.70 | [facility] | | | # | | K/cu mm | LABORATORY | | | | | | SERVICES, | | | | | | CORE | | + + + + + + | LYMPHOCYTE | 4.13 | 1.00 - 4.80 | [facility] | | | # | | K/cu mm | LABORATORY | | | | | | SERVICES, | | | | | | CORE | | + + + + + + | MONOCYTE # | 3.72 (H) | 0.10 - 0.90 | [facility] [...] + + + + | ATYPICAL | 6.05 | K/cu mm | [facility] | | [...] + + + + + | [facility] | [address] | [place] [address] | | | SERVICES, CORE | [address] | | | + + + + + CBC AND AUTO DIFF (05/28/2015 6:20 AM PST) + + + + + + | Component | Value | Ref Range | Performed | Pathologist | | | | | At | Signature | + + + + + + | WHITE CELL | 15.84 (H) | 4.40 - 11.00 | [facility] | | | COUNT | | K/cu mm | LABORATORY | | | | | | SERVICES, | | | | | | CORE | | + + + + + + | RED CELL | 3.45 (L) | 4.50 - 6.00 | [facility] | | | COUNT | | M/cu mm | LABORATORY | | | | | | SERVICES, | | | | | | CORE | | + + + + + + | HEMOGLOBIN | 11.2 (L) | 13.5 - 17.5 | [facility] | | | | | g/dL | LABORATORY | | | | | | SERVICES, | | | | | | CORE | | + + + + + + | HEMATOCRIT | 32.1 (L) | 41.0 - 53.0 % | [facility] | | | | | | LABORATORY | | | | | | SERVICES, | | | | | | CORE | | + + + + + + | MCV | 93.0 | 80.0 - 96.0 fL | [facility] | | | | | | LABORATORY | | | | | | SERVICES, | | | | | | CORE | | + + + + + + | MCHC | 34.9 | 33.0 - 35.5 | [facility] | | | | | g/dL | LABORATORY | | | | | | SERVICES, | | | | | | CORE | | + + + + + + | RDW SD | 47.5 (H) | 35.1 - 46.3 fL | [facility] | | | | | | LABORATORY | | | | | | SERVICES, | | | | | | CORE | | + + + + + + | PLATELET | 81 (L)Comment: Few | 150 - 400 K/cu | [facility] | | | COUNT | platelet clumps present. | mm | LABORATORY | | | | | | SERVICES, | | | | | | CORE | | + + + + + + | MPV | 9.7 | 9.7 - 12.3 fL [...] + | [facility] | [address] | [place] [address] | | | SERVICES, CORE | [address] | | | + + + + + URIC ACID, PLASMA (05/27/2015 11:30 PM PST) + +---------+ + + + | Component | Value | Ref Range | Performed | Pathologist | | | | | At | Signature | + +---------+ + + + | URIC ACID, | 3.4 (L) | 3.7 - 8.0 mg/dL | [...] + | [facility] | [address] | [place] [address] | | | SERVICES, CORE | [address] | | | + + + + + PHOSPHORUS, PLASMA (05/27/2015 11:30 PM PST) + +-------+ + + [...] [facility] | [address] | [place] [address] | | | SERVICES, CORE | [address] | | | + + + + + COMPLETE METABOLIC SET (NA,K,CL,CO2,BUN,CREAT,GLUC,CA,AST,ALT,BILI TOTAL,ALK PHOS,ALB,PROT TOTAL) (05/27/2015 11:30 PM PST) + +---------+ + + + [...] | | | LABORATORY | | | DUTCH | | | SERVICES, | | | [...] +---------+ + + + | CHLORIDE, | 111 [...] + + + | ALK PHOS | 49 (L) | 53 - 128 U/L | [...] + + + | ALT (SGPT) | 41 | <=60 U/L | [facility] | | [...] ANION GAP | 7 | mmol/L | [facility] | | | | | | LABORATORY [...] + | [facility] | [address] | [place] [address] | | | INDRA SHARIF | [address] | | | + + + + + MAGNESIUM, PLASMA (05/27/2015 11:30 PM PST) + +-------+ + + [...] [facility] | [address] | [place] [address] | | | INDRA SHARIF | [address] | | | + + + + + LAB OTHER (05/27/2015 11:30 PM PST) + + + + + + | Component | Value | Ref Range | Performed | Pathologist | | | | | At | Signature | + + + + + + | MISC REF | Folate, Serum | | [facility] | | | TEST NAME | | | REFERENCE | | | | | | LAB | | + + + + + + | MISC REF | 12.9 ng/mL | | [facility] | | | TEST RESULT | | | REFERENCE | | | | | | LAB | | + + + + + + | NORMAL | >=5.9 ng/mL | | [facility] | | | RANGE | | | REFERENCE | | | | | | LAB | | + + + + + + | REFERRAL | | | [facility] | | | LAB NAME | | | REFERENCE | | | | | | LAB | | + + + + + + + + | Specimen | + + | Blood - Blood | + + + + + | Narrative | Performed At | + + + | See scanned | [facility] | | report for Technical Results and further Interpretation and Comments. | REFERENCE LAB | | | | | Test performed by [email or web address] [facility] [place], | | | [place] [address] | | | [email or web address] | | | | | |[email or web address] | | | | | | | [...] | + + + + + VITAMIN B-12, SERUM (05/27/2015 11:25 AM PST) + +-------+ + + + | Component | Value | Ref Range | Performed | Pathologist | | | | | At | Signature | + +-------+ + + + | VITAMIN B12 | 366 | 190 - 910 pg/ml | [facility] | | | | | [...] + | [facility] | [address] | [place] [address] | | | SERVICES, SPECIAL | [address] | | | | IMM + COAG | | | | + + + + + CMV IGG AND IGM ABS, SERUM (05/27/2015 11:25 AM PST) + + + + + + | Component | Value | Ref Range | Performed | Pathologist | | | | | At | Signature | + + + + + + | CMV IGG AB | 4.90Comment: | U/mL | [facility] | | | | INTERPRETIVE | | REG UNIV | | | | INFORMATION: | | PTH - INTFC | | | | Cytomegalovirus | | | | | | Antibody, IgG 0.59 | | | | | | U/mL or less......... | | | | | | Not Detected 0.6 - | | | | | | 0.69 U/mL........... | | | | | | Indeterminate-Repeat | | | | | | testing in | | | | | | | | | | | | 10-14 days may be | | | | | | helpful. 0.70 U/mL or | | | | | | greater...... Detected | | | | | | In immunocompromised | | | | | | patients, CMV serology | | | | | | (IgG or IgM antibody | | | | | | titers) may not be | | | | | | reliable and may be | | | | | | misleading in the | | | | | | diagnosis of acute or | | | | | | reactivation CMV | | | | | | disease. The preferred | | | | | | method for diagnosis is | | | | | | culture of virus and/or | | | | | | demonstration of viral | | | | | | antigen in peripheral | | | | | | white cells (buffy | | | | | | coat), bronchoalveolar | | | | | | lavage (BAL) cells, or | | | | | | tissue biopsies. The | | | | | | best evidence for | | | | [...] + + + + + | CMV IGM AB | <8.0Comment: | <=29.9 AU/mL | [facility] | | | | INTERPRETIVE | | REG UNIV | | | | INFORMATION: | | PTH - INTFC | | | | Cytomegalovirus | | | | | | Antibody, IgM 29.9 | | | | | | AU/mL or Less ....... | | | | | | Not Detected 30.0-34.9 | | | | | | AU/mL........... | | | | | | Indeterminate-Repeat | | | | | | testing | | | | | | | | | | | | in 10-14 days may be | | | | | | helpful. 35.0 AU/mL or | | | | | | Greater .... | | | | | | Detected-IgM antibody to | | | | | | CMV | | | | | | | | | | | | detected which may | | | | | [...] months | | | | | | post-infection. CMV | | | | | | serology is not useful | | | | | | for the evaluation of | | | | | | active or reactivated | | | | | | infection in | | | | | | immunocompromised | | | | | | patients. Molecular | | | | | | diagnostic tests (i.e. | | | | | | PCR)are preferred in | | | | | | these cases.Performed by | | | | | | [email or web address] | | | | | [address], [facility] [place] | | | | | | [address] | | | | | | [phone]. | | | | | | Elmo [...] [facility] | [address] | [place], [place] | | | UNIV PTH - INTFC | | [address] | | + + + + + ABO & RH TYPE (05/27/2015 11:25 AM PST) + + + + [...] [facility] | [address] | [place] [address] | | | SERVICES, | [address] | | | | TRANSFUSION MEDICINE | | | | + + + + + CYTOGENETICS HEM/ONC BLOOD CHROMOSOME ANALYSIS (W/FISH) (LABEL) (05/27/2015 10:42 AM PST) + + + + + [...] + + + + | [facility] | [address] | [place] [address] | | | DIAGNOSTIC | [address] | | | | LABORATORIES | | | | + + + + + LEUKEMIA/LYMPHOMA MARKER - BLOOD (LABEL) (05/27/2015 10:42 AM PST) + + | Specimen | + + | Blood - Blood | | (substance) | + + + + + + + | Performing | Address | City/State/Zipcode | Phone Number | | Organization | | | | + + + + + | [facility] | [address] | [place] [address] | | | SERVICES, SPECIAL | [address] | | | | IMM + COAG | | | | + + + + + X-RAY PORTABLE CHEST PICC LINE CHECK (05/27/2015 10:06 AM PST) + + + + + + | Component | Value | Ref Range | Performed | Pathologist | | | | | At | Signature | + + + + + + | XRAY | EXAM: ND CHEST PICC LINE | | | | | PORTABLE | CHECK 05/27/15 10:06:00 | | | | | CHEST PICC | HISTORY: 24 year old | | | | | LINE CHECK | male with leukemia, | | | | | | status post PICC | | | | | | Placement. COMPARISON: | | | | | | None. FINDINGS: A left | | | | | | upper extremity PICC is | | | | | | in place, with tip 2 cm | | | | | | below the | | | | | | cavoatrialjunction. | | | | | | The cardiomediastinal | | | | | | contour is normal. The | | | | | | lungs are clear.There | | | | | | is no pneumothorax or | | | | | | pleural effusion. No | | | | | | acute osseous | | | | | | abnormality | | | | | | isidentified. | | | | | | IMPRESSION: Left upper | | | | | | extremity PICC placement | | | | | | with tip 2 cm above the | | | | | | cavoatrial junction. | | | | | | Clear [...] | | | | | | FLAKITO 05/27/2015 11:15 | | | | | | [...] | | | + +---------+ + + 12 LEAD ECG (05/27/2015 7:26 AM PST) + + + + + + | Component | Value | Ref Range | Performed | Pathologist | | | | | At | Signature | + + + + + + | VENTRICULAR | 46 | bpm | [facility] | | | RATE | | | OF | | | | | | CARDIOLOGY | | + + + + + + | ATRIAL RATE | 46 | bpm | [facility] | | | | | | OF | | | | | | CARDIOLOGY | | + + + + + + | P-R | 164 | ms | [facility] | | | INTERVAL | | | OF | | | | | | CARDIOLOGY | | + + + + + + | P AXIS | 76 | deg | [facility] | | | | | | OF | | | | | | CARDIOLOGY | | + + + + + + | QRS | 100 | ms | [facility] | | | DURATION | | | OF | | | | | | CARDIOLOGY | | + + + + + + | QT | 444 | ms | [facility] | | | | | | OF | | | | | | CARDIOLOGY | | + + + + + + | QTCB | 389 | ms | [facility] | | | | | | OF | | | | | | CARDIOLOGY | | + + + + + + | R AXIS | -16 | deg | [facility] | | | | | | OF | | | | | | CARDIOLOGY | | + + + + + + | T AXIS | 62 | deg | [facility] | | | | | | OF | | | | | | CARDIOLOGY | | + + + + + + | ECG | SINUS BRADYCARDIAST | | [facility] | | | IMPRESSION | ELEV, PROBABLE EARLY | | OF | | | | REPOL PATTERN - | | CARDIOLOGY | | | | OTHERWISE NORMAL ECG | | | | | | -Electronically signed | | | | | | by: JOSE DYE | | | | | | 05-27-2015 12:57:29 | | | | + + + [...] DEPT OF | [address] | [place], [place] | | | CARDIOLOGY | [address] | [address] | | + + + + + CONFIRMATORY ABO/RH (05/27/2015 5:17 AM PST) + + + + + [...] + | [facility] | [address] | [place] [address] | | | SERVICES, | [address] | | | | TRANSFUSION MEDICINE | | | | + + + + + MANUAL DIFFERENTIAL (05/27/2015 5:16 AM PST) + + + + + + | Component | Value | Ref Range | Performed | Pathologist | | | | | At | Signature | + + + + + + | NEUTROPHIL | 7.9 (L) | 50.0 - 70.0 % | [facility] | | | % | | | LABORATORY | | | | | | SERVICES, | | | | | | CORE | | + + + + + + | LYMPHOCYTE | 23.9 | 18.0 - 42.0 % | [facility] | | | % | | | LABORATORY | | | | | | SERVICES, | | | | | | CORE | | + + + + + + | MONOCYTE % | 23.0 (H) | 3.5 - 9.0 % | [...] + + + + | ATYPICAL | 42.5 (HH)Comment: | 0.0 % | [facility] | | | CELL % | Atypical Cells with fine | | LABORATORY | | | | chromatin, high N-C | | SERVICES, | | | | ratio, prominent | | CORE | | | | nucleoli and dark blue | | | | | | cytoplasm. | | | | + + + + + + | NEUTROPHIL | 1.73 (L) | 1.80 - 7.70 | [facility] | | | # | | K/cu mm | LABORATORY | | | | | | SERVICES, | | | | | | CORE | | + + + + + + | LYMPHOCYTE | 5.22 (H) | 1.00 - 4.80 | [facility] | | | # | | K/cu mm | LABORATORY | | | | | | SERVICES, | | | | | | CORE | | + + + + + + | MONOCYTE # | 5.02 (H) | 0.10 - 0.90 | [facility] | | | | | K/cu mm | LABORATORY | | | | | | SERVICES, | | | | | | CORE | | + + + + + + | EOSINOPHIL | 0.39 | 0.00 - 0.50 | [facility] | [...] + + + + | ATYPICAL | 9.28 | K/cu mm | [facility] | | [...] [facility] | [address] | [place] [address] | | | SERVICES, CORE | [address] | | | + + + + + CBC AND AUTO DIFF (05/27/2015 5:16 AM PST) + + + + + + | Component | Value | Ref Range | Performed | Pathologist | | | | | At | Signature | + + + + + + | WHITE CELL | 21.84 (H) | 4.40 - 11.00 | [facility] [...] + + + + | HEMOGLOBIN | 11.3 (L) | 13.5 - 17.5 | [facility] | | | | | g/dL | LABORATORY | | | | | | SERVICES, | | | | | | CORE | | + + + + + + | HEMATOCRIT | 32.3 (L) | 41.0 - 53.0 % | [...] + + + | RDW SD | 47.7 (H) | 35.1 - 46.3 fL | [facility] | | | | | | LABORATORY | | | | | | SERVICES, | | | | | | CORE | | + + + + + + | PLATELET | 102 (L) | 150 - 400 K/cu | [...] [facility] | [address] | [place] [address] | | | SERVICES, CORE | [address] | | | + + + + + LDH TOTAL, PLASMA (05/27/2015 5:16 AM PST) + +---------+ + + + | Component | Value | Ref Range | Performed | Pathologist | | | | | At | Signature | + +---------+ + + + | LD TOTAL, | 243 | <=250 U/L | [facility] | | [...] + + | [facility] | [address] | [place] [address] | | | SERVICES, CORE | [address] | | | + + + + + PHOSPHORUS, PLASMA (05/27/2015 5:16 AM PST) + +-------+ + + + [...] + + | [facility] | [address] | [place] [address] | | | KOLE, INDRA | [address] | | | + + + + + MAGNESIUM, PLASMA (05/27/2015 5:16 AM PST) + +-------+ + + + [...] [facility] | [address] | [place] [address] | | | SERVICES, CORE | [address] | | | + + + + + COMPLETE METABOLIC SET (NA,K,CL,CO2,BUN,CREAT,GLUC,CA,AST,ALT,BILI TOTAL,ALK PHOS,ALB,PROT TOTAL) (05/27/2015 5:16 AM PST) + +---------+ + + + | Component | Value | Ref Range | Performed | Pathologist | | | | | At | Signature | + +---------+ + + + | GLUCOSE, | 99 | 60 - 99 mg/dL | [facility] [...] | | | LABORATORY | | | DUTCH | | | SERVICES, | | | [...] + + + | ALK PHOS | 48 (L) | 53 - 128 U/L | [facility] | | | | | | LABORATORY | | | | | | SERVICES, | | | | | | CORE | | + +---------+ + + + | AST(SGOT) | 28 | <=41 U/L | [facility] | | | | | | LABORATORY | | | | | | SERVICES, | | | | | | CORE | | + +---------+ + + + | ALT (SGPT) | 37 | <=60 U/L | [facility] | | [...] the MDRD equation recommended by the | [facility] | | National Kidney Disease Education Program. [...] + + | Performing | Address | City[facility]State[facility] | Phone Number | | Organization | | | | + + + + + | [facility] | [address] | [place] [address] | | | SERVICES, CORE | [address] | | | + + + + + COAGULOPATHY PANEL (INR,APTT,FIBRINOGEN) (05/27/2015 5:16 AM PST) + + + + + + | Component | Value | Ref Range | Performed | Pathologist | | | | | At | Signature | + + + + + + | INR | 1.16 | 0.90 - 1.20 INR | [facility] | | | | | | LABORATORY | | | | | | SERVICES, | | | | | | CORE | | + + + + + + | APTT | 37.6 (H) | 26.0 - 36.0 | [facility] | | | | | seconds | LABORATORY | | | | | | SERVICES, | | | | | | CORE | | + + + + + + | FIBRINOGEN | 333 | 200 - 450 mg/dL | [facility] [...] + + + + + | [facility] | [address] | [place] [address] | | | SERVICES, CORE | [address] | | | + + + + + URIC ACID, PLASMA (05/27/2015 5:16 AM PST) + +-------+ + + + | Component | Value | Ref Range | Performed | Pathologist | | | | | At | Signature | + +-------+ + + + | URIC ACID, | 4.5 | 3.7 - 8.0 mg/dL | [facility] [...] + + + + + | [facility] | [address] | [place] [address] | | | SERVICES, CORE | [address] | | | + + + + + VRE (DIAZ) BY PCR (05/27/2015 12:26 AM PST) + + + + + [...] [facility] | [address] | [place] [address] | | | SERVICES, CORE | [address] | | | + + + + + MANUAL DIFFERENTIAL (05/27/2015 12:02 AM PST) + + + + + + | Component | Value | Ref Range | Performed | Pathologist | | | | | At | Signature | + + + + + + | NEUTROPHIL | 3.5 (L) | 50.0 - 70.0 % | [facility] | | | % | | | LABORATORY | | | | | | SERVICES, | | | | | | CORE | | + + + + + + | LYMPHOCYTE | 31.3 | 18.0 - 42.0 % | [facility] | | | % | | | LABORATORY | | | | | | SERVICES, | | | | | | CORE | | + + + + + + | MONOCYTE % | 28.7 (H) | 3.5 - 9.0 % | [...] + + + + | ATYPICAL | 36.5 (HH)Comment: | 0.0 % | [facility] | | | CELL % | Atypical Cells with fine | | LABORATORY | | | | chromatin, high N-C | | SERVICES, | | | | ratio, prominent | | CORE | | | | nucleoli and dark blue | | | | | | cytoplasm. | | | | + + + + + + | NEUTROPHIL | 0.82 (L) | 1.80 - 7.70 | [facility] | | | # | | K/cu mm | LABORATORY | | | | | | SERVICES, | | | | | | CORE | | + + + + + + | LYMPHOCYTE | 7.35 (H) | 1.00 - 4.80 | [facility] | | | # | | K/cu mm | LABORATORY | | | | | | SERVICES, | | | | | | CORE | | + + + + + + | MONOCYTE # | 6.74 (H) | 0.10 - 0.90 | [facility] [...] + + + + | ATYPICAL | 8.57 | K/cu mm | [facility] | | [...] + + + + + | [facility] | [address] | [place] [address] | | | SERVICESINDRA | [address] | | | + + + + + CBC AND AUTO DIFF (05/27/2015 12:02 AM PST) + + + + + + | Component | Value | Ref Range | Performed | Pathologist | | | | | At | Signature | + + + + + + | WHITE CELL | 23.47 (H) | 4.40 - 11.00 | [facility] | | | COUNT | | K/cu mm | LABORATORY | | | | | | SERVICES, | | | | | | CORE | | + + + + + + | RED CELL | 3.62 (L) | 4.50 - 6.00 | [facility] | | | COUNT | | M/cu mm | LABORATORY | | | | | | SERVICES, | | | | | | CORE | | + + + + + + | HEMOGLOBIN | 11.6 (L) | 13.5 - 17.5 | [facility] | | | | | g/dL | LABORATORY | | | | | | SERVICES, | | | | | | CORE | | + + + + + + | HEMATOCRIT | 34.2 (L) | 41.0 - 53.0 % | [...] + + + + | MCHC | 33.9 | 33.0 - 35.5 | [facility] | | | | | g/dL | LABORATORY | | | | | | SERVICES, | | | | | | CORE | | + + + + + + | RDW SD | 48.5 (H) | 35.1 - 46.3 fL | [facility] | | | | | | LABORATORY | | | | | | SERVICES, | | | | | | CORE | | + + + + + + | PLATELET | 106 (L) | 150 - 400 K/cu | [facility] | | | COUNT | | mm | LABORATORY | | | | | | SERVICES, | | | | | | CORE | | + + + + + + | MPV | 9.3 (L) | 9.7 - 12.3 [...] + | [facility] | [address] | [place] [address] | | | SERVICES, CORE | [address] | | | + + + + + GENETRAILS AML/MDS GENE MUTATION PANEL, BLOOD (LABEL) (05/27/2015 12:02 AM PST) + + + + + [...] + + + | [facility] | [address] | [place] [address] | | | DIAGNOSTIC | [address] | | | | LABORATORIES | | | | + + + + + ANTIBODY SCREEN (05/27/2015 12:02 AM PST) + + + + + [...] [facility] | [address] | [place] [address] | | | SERVICES, | [address] | | | | TRANSFUSION MEDICINE | | | | + + + + + ABO & RH TYPE (05/27/2015 12:02 AM PST) + + + + + [...] [facility] | [address] | [place] [address] | | | SERVICES, | [address] | | | | TRANSFUSION MEDICINE | | | | + + + + + HEPATITIS C AB W/CONFIRMATION REFLEX PCR (05/27/2015 12:02 AM PST) + + + + + + | Component | Value | Ref Range | Performed | Pathologist | | | | | At | Signature | + + + + + + | HEPATITIS C | NegativeComment: | Negative | [facility] - | | | AB | Negative | | [facility] - | | | | | | [place] | | + + + + + + + + | Specimen | + + | Blood - Blood | + + + + + + + | Performing | Address | City/State/Zipcode | Phone Number | | Organization | | | | + + + + + | [facility] - | [address] | [place] [address] | | | [place] | | | | + + + + + HEPATITIS B SURFACE AB QUAL, SERUM (05/27/2015 12:02 AM PST) + + + + + [...] | + + + + + | [facility] - | [address] | [place] [address] | | | [facility] | | | | + + + + + HEPATITIS B CORE AB, SERUM (05/27/2015 12:02 AM PST) + + + + + + | Component | Value | Ref Range | Performed | Pathologist | | | | | At | Signature | + + + + + + | HEPATITIS B | NegativeComment: | Negative | [facility] - | | | CORE AB, | Negative | | [facility] - | | | [place] | | | [place] | | + + + + + + + + | Specimen | + + | Blood - Blood | + + + + + + + | Performing | Address | City/State/Zipcode | Phone Number | | Organization | | | | + + + + + | [facility] - | [address] | [place] [address] | | | [place] | | | | + + + + + HIV-1,2 AB/HIV-1 P24 AG SCRN, SERUM (05/27/2015 12:02 AM PST) + + + + + + | Component | Value | Ref Range | Performed | Pathologist | | | | | At | Signature | + + + + + + | HIV-1,2 | Nonreactive | Nonreactive | [facility] | | | AB/HIV-1 | | | LABORATORY | | | P24 AG | | | SERVICES, | | | SCREEN | | | SPECIAL IMM | | | | | | + [place] | | + + + + + + + + | Specimen | + + | Blood - Blood | | (substance) | + + + + + | Narrative | Performed At | + + + | HIV-1 p24 Ag and HIV-1,2 Ab not detected. | [facility] | | | LABORATORY | | | SERVICES, | | | SPECIAL IMM + | | | [place] | + + + + + + + + | Performing | Address | City/State/Zipcode | Phone Number | | Organization | | | | + + + + + | [facility] | [address] | [place] [address] | | | SERVICES, SPECIAL | [address] | | | | IMM + [place] | | | | + + + + + LDH TOTAL, PLASMA (05/27/2015 12:02 AM PST) + +---------+ + + + | Component | Value | Ref Range | Performed | Pathologist | | | | | At | Signature | + +---------+ + + + | LD TOTAL, | 229 | <=250 U/L | [facility] | | [...] [facility] | [address] | [place] [address] | | | SERVICES, CORE | [address] | | | + + + + + BILIRUBIN DIRECT (05/27/2015 12:02 AM PST) + +---------+ + + + [...] + | [facility] | [address] | [place] [address] | | | SERVICES, CORE | [address] | | | + + + + + URIC ACID, PLASMA (05/27/2015 12:02 AM PST) + +-------+ + + + | Component | Value | Ref Range | Performed | Pathologist | | | | | At | Signature | + +-------+ + + + | URIC ACID, | 4.8 | 3.7 - 8.0 mg/dL | [facility] [...] [facility] | [address] | [place] [id number] | | | SERVICES, CORE | [address] | | | + + + + + PHOSPHORUS, PLASMA (05/27/2015 12:02 AM PST) + +-------+ + + + [...] [facility] | [address] | [place] [address] | | | INDRA SHARIF | [address] | | | + + + + + MAGNESIUM, PLASMA (05/27/2015 12:02 AM PST) + +-------+ + + + [...] + | [facility] | [address] | [place] [address] | | | SERVICES, CORE | [address] | | | + + + + + COMPLETE METABOLIC SET (NA,K,CL,CO2,BUN,CREAT,GLUC,CA,AST,ALT,BILI TOTAL,ALK PHOS,ALB,PROT TOTAL) (05/27/2015 12:02 AM PST) + +---------+ + + + [...] +---------+ + + + | CREATININE | 0.98 | 0.70 - 1.30 | [facility] | | | PLASMA | | mg/dL | LABORATORY | | | (LAB) | | | SERVICES, | | | | | | CORE | | + +---------+ + + + | EGFR | >60 | >60 mL/min | [facility] | | | - | | | LABORATORY | | | DUTCH | | | SERVICES, | | | [...] +---------+ + + + | TOTAL | 7.9 | 6.4 - 8.2 g/dL | [facility] [...] + + + | ALK PHOS | 55 | 53 - 128 U/L | [facility] | | | | | | LABORATORY | | | | | | SERVICES, | | | | | | CORE | | + +---------+ + + + | AST(SGOT) | 28 | <=41 U/L | [facility] | | [...] + | [facility] | [address] | [place] [address] | | | SERVICES, CORE | [address] | | | + + + + + CYTOGENETICS HEM/ONC BLOOD CHROMOSOME ANALYSIS (W/FISH) (CRISTINA) (05/27/2015) + + + + + + | Component | Value | Ref Range | Performed | Pathologist | | | | | At | Signature | + + + + + + | CHROMOSOME | Hem/Onc Blood: Full | | [facility] | | | REPORT | Study/FISHSupplemental | | DIAGNOSTIC | | | | indications: | | | | | | Leukocytosis; 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 Fluorescent | | | | | | in situ hybridization | | | | | | (FISH) was performed | | | | | | with AML and MDSprobe | | | | | | panels. Probe sets and | | | | | | number of cells scored | | | | | | are listed below.All | | | | | | results were within the | | | | | | normal limits | | | | | | established by our | | | | | | laboratory. Thank | | | | | | you very much for your | | | [...] Level: | | | | | | 400-500Number of | | | | | | Cells Counted N/A | | | | | | Banding Method: | | | | | | GTWNumber of Cells | | | | | | Karyotyped: 3 | | | | | | FISH ANALYSIS SUMMARY: | | | | | | Cells Scored: | | | | | | 200 Probe(s): | | | | | | Blanton PML (15q22) (SO) | | | | | | / BASSEM (17q21)(SG) | | | | | | t(15;17)Cells Scored: | | | | | | 200 Probe(s): | | | | | | Blanton BCR (22q11.2)(SG) | | | | | | / ABL(9q34)(SO)+ASS | | | | | | (9q34) (SA)Cells Scored: | | | | | | 200 | | | | | | Probe(s): Blanton | | | | | | KLRZ1N2 (8q21.3) (SO) / | | | | | | RUNX1(21q22) (SG) | | | | | | t(8;21)Cells Scored: | | | | | | 200 Probe(s): | | | | | | Blanton CBFB inv(16) | | | | | | (16q22) break-apart | | | | | | Cells Scored: | | | | | | 200 Probe(s): | | | | | | Cymogen MLL (11q23) | | | | | | break-apartCells Scored: | | | | | | 200 | | | | | | Probe(s): Blanton 5q | | | | | | EGR1 (5q31) (SO) / | | | | | | D5S23,F1D355 (5p15.2) | | | | | | (SG)Cells Scored: | | | | | | 200 Probe(s): | | | | | | Blanton Q0Q891 (7q31) | | | | | | (SO) / CEP 7 (SG) | | | | | | Cells Scored: | | | | | | 200 Probe(s): Blanton | | | | | | CEP 8 (SA)Cells Scored: | | | | | | 200 Probe(s): | | | | | | Blanton [id number] (20q12) | | | | | | (SO) / Blanton | | | | | | 20ptelomere (SG)Cells | | | | | | Scored: 200 | | | | | | Probe(s): Cymogen TP53 | | | | | | (17p13.1) (SO) / CEP | | | | | | 17(SG) This test | | | | | | was developed and its | | | | | | performance determined | | | | | | by the [facility] | | | | | | Laboratory as required | | | | | | by the CLIA '88 | | | | | | regulations. It hasnot | | | | | | been cleared or | | | | | | approved for specific | | | | | | uses by the U.[place]. Food | | | | | | and DrugAdministration. | | | | | | The clinical | | | | | | interpretation was made | | | | | | by the clinical | | | | | | dietitian research. | | | | | | Rendering | | | | | | Diagnostician: Aspen | | | | | | Efrem Kaba, ABMG, | | | | | | FACMGClinical | | | | | | CytogeneticistElectronic | | | | | | ally Signed 06/01/2015 | | | | | | 3:28PMRendering | | | | | | Diagnostician: Aspen | | | | | | Joecline PERERA, ABMG, | | | | | | FACMGClinical | | | | | | GeneticistElectronically | | | | | | Signed 06/01/2015 | | | | | | 8:17PM | | | | + + + [...] + + + + | [facility] | [address] | [place] [address] | | | DIAGNOSTIC | [address] | | | | LABORATORIES | | | | + + + + + LEUKEMIA/LYMPHOMA MARKER - BLOOD (PP) (05/27/2015) + + + + + + | Component | Value | Ref Range | Performed | Pathologist | | | | | At | Signature | + + + + + + | HEMATOPATHO | SOURCE OF SPECIMEN:A | | [facility] | | | LOGY | Peripheral Blood 1x4ml | | DEPARTMENT | | | | Clinical | | OF | | | | History:The patient is a | | PATHOLOGY | | | | 24 year old man | | | | | | transferred to [facility] with | | | | | | a new diagnosisof AML | | | | | | at an outside | | | | | | institution. 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 Comment: | | | | | | Please correlate | | | | | | findings with pending | | | | | | cytogenetics/FISH | | | | | | andmolecular studies. | | | | | | Case seen | | | | | | by:Ysabel Moran, | | | | | | M.DAna/Hematopathology | | | | | | Rebecca Cain, | | | | | | /Hematopathologist | | | | | | Gross | | | | | | Description:Anti-coagula | | | | | | edward peripheral blood was | | | | | | received for | | | | | | evaluation. | | | | | | AWright-stained | | | | | | peripheral blood smear | | | | | | and a cytospin of the | | | | | | cell suspensionwere | | | | | | prepared for morphologic | | | | | | correlation with the | | | | | | flow cytometry results. | | | | | | Microscopic | | | | | | Description:Peripheral | | | | | | Blood Smear: There is | | | | | | an increase in blasts. | | | | | | These are largewith high | | | | | | NC ratio, relatively | | | | | | abundant guzman blue | | | | | | cytoplasm, round | | | | | | nuclei,open chromatin | | | | | | and prominent nucleoli. | | | | | | No Kiara rods are seen. | | | | | | The red bloodcells show | | | | | | mild anisocytosis. | | | | | | Neutrophils are reduced | | | | | | in number | | | | | | butpredominantly show | | | | | | normal nuclear lobation | | | | | | and cytoplasmic | | | | | | granularity,although | | | | | | occasional neutrophils | | | | | | are hypogranular. | | | | | | Lymphocytes are small | | | | | | andmature. Platelets are | | | | | | normal in size and | | | | | | granularity. A 100 | | | | | | cell count on the | | | | | | peripheral blood yields | | | | | | the followin% | | | | | | blasts,19% lymphocytes, | | | | | | 30% monocytes, 5% | | | | | | neutrophils. | | | | | | Special stains: A BE and | | | | | | MPO stain were | | | | | | performed. BE is | | | | | | negative in theblasts, | | | | | | but stains greater than | | | | | | 20% of white blood | | | | | | cells. MPO stains someof | | | | | | the blasts (5%). | | | | | | Immunologic Analysis:The | | | | | | analysis was performed | | | | | | by flow cytometry on the | | | | | | bone marrow | | | | | | aspirate.Blasts comprise | | | | | | 47% of WBC and have the | | | | | | following | | | | | | immunophenotype: | | | | | | dimCD13,CD33, CD34, | | | | | | CD56, CD117, and CD123. | | | | | | Monocytes account for | | | | | | 30% of WBC andhave a | | | | | | predominantly normal | | | | | | monocytic antigen | | | | | | profile, except for | | | | | | increasein CD56 | | | | | | positivity. Lymphocytes | | | | | | account for 12% of CD45+ | | | | | | events and kogtwak74% T | | | | | | cells, 19% B cells and | | | | | | 3% NK cells. T cells | | | | | | show a CD4:CD8 ratio | | | | | | of1.7:1 without aberrant | | | | | | antigen expression. B | | | | | | cells are polytypic by | | | | | | surfacelight chain | | | | | | expression. Please see | | | | | | below for antibodies | | | | | | tested. Antibodies | | | | | | Tested CD2 sCD3 | | | | | | cCD3 CD4 CD5 CD7 | | | | | | CD8 [id number] | | | | | | CD13 CD14 CD15 CD16 CD19 | | | | | | CD20 [id number] CD34 CD38 | | | | | | CD45 CD56 CD58 CD64 | | | | | | [id number] CD117 | | | | | | CD123 MPO | | | | | | HLA-DR sKappa | | | | | | sLambda TdT | | | | | | (Analyte [...] Laboratory | | | | | | Data:05/27/2015 | | | | | | Ref Range | | | | | | ValueWHITE CELL COUNT | | | | | | 4.40-11.00 K/cu mm | | | | | | 21.84 (H)RED CELL | | | | | | COUNT 4.50-6.00 M/cu mm | | | | | | 3.48 (L)HEMOGLOBIN | | | | | | 13.5-17.5 g/dL 11.3 | | | | | | (L)HEMATOCRIT | | | | | | 41.0-53.0 % 32.3 | | | | | | (L)MCV 80.0-96.0 fL | | | | | | 92.8MCHC 33.0-35.5 g/dL | | | | | | 35.0RDW SD | | | | | | 35.1-46.3 fL 47.7 | | | | | | (H)PLATELET COUNT | | | | | | 150-400 K/cu mm | | | | | | 102 (L)MPV 9.7-12.3 fL | | | | | | 9.1 (L)NRBC% | | | | | | 0.0-0.3 % 0.0NRBC# | | | | | | 0.00-0.02 K/cu mm | | | | | | 0.00NEUTROPHIL % | | | | | | 50.0-70.0 % 7.9 | | | | | | (L)LYMPHOCYTE % | | | | | | 18.0-42.0 % | | | | | | 23.9MONOCYTE % | | | | | | 3.5-9.0 % 23.0 | | | | | | (H)EOSINOPHIL % | | | | | | 1.0-3.0 % 1.8BASOPHIL % | | | | | | 0.0-2.0 % | | | | | | 0.0IMMATURE GRANULOCYTE% | | | | | | 0.0-0.6 % 0.9 | | | | | | (H)ATYPICAL CELL % | | | | | | 0.0 % 42.5 | | | | | | (HH)NEUTROPHIL # | | | | | | 1.80-7.70 K/cu mm | | | | | | 1.73 (L)LYMPHOCYTE # | | | | | | 1.00-4.80 K/cu mm | | | | | | 5.22 (H)MONOCYTE # | | | | | | 0.10-0.90 K/cu mm | | | | | | 5.02 (H)EOSINOPHIL # | | | | | | 0.00-0.50 K/cu mm | | | | | | 0.39BASOPHIL # | | | | | | 0.00-0.10 K/cu mm | | | | | | 0.00IMMATURE | | | | | | GRANULOCYTE# | | | | | | 0.00-0.03 K/cu mm | | | | | | 0.20 (H)ATYPICAL CELLS # | | | | | | K/cu mm 9.28 | | | | | | My [...] Signed | | | | | | 05/28/2015 5:44PM | | | | + + + + + + + + | Specimen | + + | Blood - Blood | + + + + + + + | Performing | Address | City/State/Zipcode | Phone Number | | Organization | | | | + + + + + | [facility] | [address] | [place] [address] | | | PATHOLOGY | [address] | | | + + + + + GENETRAILS AML/MDS GENE MUTATION PANEL, BLOOD (PP) (05/27/2015) + + + + + + | Component | Value | Ref Range | Performed | Pathologist | | | | | At | Signature | + + + + + + | GENETRAILS | A GeneTrails AML/MDS | | [facility] | | | AML/MDS | Gene Mutation Panel | | DIAGNOSTIC | | | GENE | BloodSpecimen Type: EDTA | | | | | MUTATION | BloodSupplemental | | LABORATORIE | | | PANEL, | indications: Acute | | S | | | BLOOD | leukemia Patient | | | | | | Results: Sample | | | | | | tested: Blood (Collected | | | | | | 05/27/15) | | | | | | GeneTrailsTM AML/ MDS | | | | | | Panel: Mutation | | | | | | Screening by | | | | | | Next-GenerationSequencin | | | | | | g: The following | | | | | | one gene mutation has | | | | | | been found in this | | | | | | peripheral bloodspecimen | | | | | | with acute | | | | | | myelomonocytic leukemia: | | | | | | Gene: | | | | | | NRASMutation: | | | | | | p.K12CSnmdsz Allele | | | | | | frequency: ~40%Variant | | | | | | ID: [id number] | | | | | | NRAS activating | | | | | | mutations are very | | | | | | common in a variety of | | | | | | cancers,including | | | | | | leukemia, and typically | | | | | | result in constitutive | | | | | | activation ofdownstream | | | | | | SWL-CXQ-CCH-ERK | | | | | | signaling pathways. | | | | | | Approximately 10% of | | | | | | AML'shave been reported | | | | | | to carry an activating | | | | | | NRAS mutation. NRAS | | | | | | mutations maypredict | | | | | | sensitivity to MEK | | | | | | inhibitors. There is | | | | | | currently a | | | | | | pharmaceuticalclinical | | | | | | trial that is recruiting | | | | | | adult patients with AML | | | | | | or high risk MDSwith | | | | | | documented REMINGTON mutations | | | | | | ([id number]). | | | | | | Average# of DNA | | | | | | sequence reads (ie, | | | | | | depth of coverage) for | | | | | | each of the 43genes: | | | | | | 1292 Each | | | | | | of the 43 genes listed | | | | | [...] | | | | | | 100%CEBPA 100% | | | | | | IL7R [...] KDM6A | | | | | | 93% TET2 100%EZH2 | | | | | | 100% KIT 100% TP53 | | | | | | 100%FBXW7 96% | | | | | | KRAS 100% U2AF1 | | | | | | 100%FLT3 100% MPL 100% | | | | | | WT1 81%GATA1 | | | | | | 100% NOTCH1 93% | | | | | | ZRSR2 100% | | | | | | MLL partial tandem | | | | | | duplication testing: No | | | | | | MLL-PTD detected*Percent | | | | | | of [...] | | | in theabove panel of 43 | | | | | | genes, [...] | | | | | each ofthe 42 listed | | | | | | genes (not MLL-PTD). The | | | | | | gene segments that are | | | | [...] and | | | | | | Merkel sequencing are | | | | | [...] supplementary | | | | | | tgy-bqbemaspdh-yiytv | | | | | | assay is concomitantly | | | | | | run to ensure that | | | | | | internal | | | | | | tandemduplication | | | | | | insertions in FLT3 exon | | | | | | 14 and partial tandem | | | | | | duplications inMLL are | | | | | | not missed. | | | | | | Additional details on | | | | | | mutations identified in | | | | | | this specimen: | | | | | | Gene Transcript | | | | | | Genome Chrom | | | | | | Start End Ref | | | | | | VarNRAS [id number] hg19 | | | | | | chr1 [id number] | | | | | | [id number] C A | | | | | | Case reviewed | | | | | | by:Jyoti Sanders, | | | | | | MD/Molecular Genetic | | | | | | Pathology FellowJennifer | | | | | | Ponce, | | | | | | [...] [facility] | | | | | | [facility] | | | | | | Laboratories; CLIA # | | | | | | [id number]. It has not | | | | [...] | | | | | determined bythe [facility] | | | | | | [place] [...] | | | | | | [facility] | | | | | | DiagnosticsLaboratories | | | | | | is a fully licensed | | | | | | and/or accredited | | | | | | clinical laboratoryunder | | | | | | CLIA, CAP, and the | | | | | | State of [place]. | | | | | | Rendering | | | | | | Diagnostician: | | | | | | Kary Ponce | | | | | | MDPathologistElectronica | | | | | | lly Signed 06/17/2015 | | | | | | 4:15PM | | | | + + + [...] + + + + | [facility] | [address] | [place] [address] | | | DIAGNOSTIC | [address] | | | | LABORATORIES | | | | + + + + + PATHOLOGY CONSULT - REVIEW OUTSIDE SLIDES (05/19/2015) + + + + + + | Component | Value | Ref Range | Performed | Pathologist | | | | | At | Signature | + + + + + + | PATHOLOGY | THIS IS AN AMENDED | | [facility] | | | CONSULT - | REPORT SOURCE OF | | DEPARTMENT | | | SLIDES | SPECIMEN:A bone marrow | | OF | | | | core biopsy and clot | | PATHOLOGY | | | | slides Clinical | | | | | | History:The patient is a | | | | | | 24 year old man with | | | | | | acute pericarditis. | | | | | | Materials | | | | | | Received:Referring | | | | | | Institution: [facility] | | | | | | [facility] | | | | | | [place], [place], [address] | | | | | | Accession Number: | | | | | | [id number] | | | | | | Collection Date: | | | | | | 05/19/2015Sublabeled | | | | | | H&E Special | | | | | | A to B 3 | | | | | | 1 Final | | | | | | Pathologic Diagnosis:The | | | | | | report is amended to | | | | | | correct specimen types. | | | | | | Only biopsy and | | | | | | clotslides were | | | | | | received. No blood or | | | | | | bone marrow aspirate | | | | | | smears were sent [place]. | | | | | | The final diagnosis | | | | | | is not changed. A. 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 The | | | | | | outside pathology | | | | | | reportdescripted 86% of | | | | | | blast equivalents, | | | | | | comprised of | | | | | | myeloblasts, | | | | | | monoblasts,and | | | | | | promonocytes. The | | | | | | outside flow cytometric | | | | | | report on the | | | | | | marrowestimated the | | | | | | blast count 23% and 60% | | | | | | of immature monocytic | | | | | | cells. A | | | | | | recentperipheral blood | | | | | | performed at [facility] | | | | | | [facility]-[id number], 05/27/2015) | | | | | | had 47% blastsin the | | | | | | peripheral blood and was | | | | | | diagnostic of acute | | | | | | myelomonocyticleukemia. | | | | | | Case seen | | | | | | by:Ysabel Moran, | | | | | | M.DAna/Hematopathology | | | | | | Rebecca Cain, | | | | | | /Hematopathologist | | | | | | Microscopic | | | | | | Description:Peripheral | | | | | | Blood Smear: not | | | | | | provided Bone | | | | | | Marrow Aspirate: not | | | | | | provided Bone | | | | | | Marrow Biopsy and Clot | | | | | | Section: The bone | | | | | | marrow biopsy | | | | | | demonstratescortical | | | | | | bone and periosteum. | | | | | | There is no marrow | | | | | | present to evaluate. | | | | | | Theclot section | | | | | | demonstrates fragments | | | | | | of marrow with a | | | | | | cellularity | | | | | | ofapproximately 90%. | | | | | | Trilineage hematopoiesis | | | | | | is replaced by sheets | | | | | | ofmononuclear cells with | | | | | | nuclei that range from | | | | | | round to ibrahim shaped. | | | | | | Raremegakaryocytes are | | | | | | identified. | | | | | | Special stains: A | | | | | | provided iron stain | | | | | | performed on the clot | | | | | | demonstratesone iron | | | | | | laden macrophage in the | | | | | | marrow. | | | | | | Immunologic | | | | | | Analysis:Flow cytometric | | | | | | analysis was performed | | | | | | on the bone marrow | | | | | | biopsy at | | | | | | [facility] and | | | | | | demonstrates 23% blasts | | | | | | with the following | | | | | | immunophenotype:CD34, | | | | | | CD117, CD13, CD33, CD38, | | | | | | CD56, HLA-DR | | | | | | (neg-partial), cMPO | | | | | | (variable),CD11b | | | | | | (variable), and CD11c | | | | | | (variable). Additionally | | | | | | approximately 60% | | | | | | ofcells are monocytes | | | | | | with the following | | | | | | immunophenotype: CD13, | | | | | | CD33, CD38,CD56, CD15 | | | | | | (variable), CD14 | | | | | | (variable), HLA-DR | | | | | | (variable), CD11b | | | | | | bright,CD11c (variable), | | | | | | CD64 dim, My4, and | | | | | | cMPO. 16% of cells | | | | | | present in themonocytic | | | | | | gate are positive for | | | | | | CD14 with aberrant | | | | | | expression of CD56. | | | | | | Molecular analysis | | | | | | ([facility]): | | | | | | The bone marrow aspirate | | | | | | isnegative for CEBPA, | | | | | | NMP1 and FLT3 ITD. | | | | | | Cytogenetic analysis | | | | | | ([facility]): | | | | | | Normal male karyotype. | | | | | | 46,XY[20] FISH | | | | | | Study ([facility] | | | | | [facility]): Absent | | | | | | t(8;21), absent | | | | | | t(16;16), absentinv(16), | | | | | | absent MLL (11q23) | | | | | | rearrangement, and | | | | | | absent t(15;17). | | | | | | Laboratory Data:CBC Date | | | | | | 05/23/2015 WBC | | | | | | Differential %WBC x | | | | | | 10(3) 20.5 PMNs | | | | | | 3RBC x 10(6) 3.43 | | | | | | Bands 1Hb g/dl | | | | | | 11.1 Lymphs 11HCT % | | | | | | 32.9 Monos | | | | | | 45MCV 96.0 Blast/blast | | | | | | equivalents 38MCHC | | | | | | 33.8RDW 15.1Plt x | | | | | | 10(3) 120 My | | | | | | [...] Signed | | | | | | 06/01/2015 10:33AM | | | | + + + + + + + + | Specimen | + + | | + + + + + + + | Performing | Address | City/State/Zipcode | Phone Number | | Organization | | | | + + + + + | [facility] | [address] | [place] [address] | | | PATHOLOGY | [address] | | | + + + + + documented in this encounter Visit Diagnoses + + | Diagnosis | + + | Acute myeloid leukemia (AML), M4 (HCC)- primary induction failure - Primary | + + | Acute leukemia (HCC) Acute leukemia of unspecified cell type, without mention of | | having achieved remission | + + | Electrolyte abnormality Electrolyte and fluid disorders not elsewhere classified | + + documented in this encounter Administered Medications + +--------+ +--------+------+------+ | Medication Order | MAR | Action | Dose | Rate | Site | | | Action | Date | | | | + +--------+ +--------+------+------+ | acyclovir (ZOVIRAX) tablet 800 | Given | 07/08/20 | 800 mg | | | | mg 800 mg, oral, DAILY, First | | 15 9:23 | | | | | dose on Sun05/28/15 at 1100, | | AM PST | | | | | Until Discontinued | | | | | | + +--------+ +--------+------+------+ +-------+ +--------+---+---+ | Given | 07/07/20 | 800 mg | | | | | 15 8:45 | | | | | | AM PST | | | | +-------+ +--------+---+---+ | Given | 07/06/20 | 800 mg | | | | | 15 8:51 | | | | | | AM PST | | | | +-------+ +--------+---+---+ +---+---+ | | | +---+---+ + +-------+ +--------+---+---+ | allopurinol (ZYLOPRIM) tablet | Given | 05/27/20 | 300 mg | | | | 300 mg 300 mg, oral, DAILY, | | 15 12:36 | | | | | First dose on Sun05/27/15 at | | PM PST | | | | | 0900, Until Discontinued | | | | | | + +-------+ +--------+---+---+ +---+---+ | | | +---+---+ + +-------+ +--------+---+---+ | allopurinol (ZYLOPRIM) tablet | Given | 06/01/20 | 300 mg | | | | 300 mg 300 mg, oral, EVERY 24 | | 15 9:35 | | | | | HOURS, 5 doses, First dose on Fri | | AM PST | | | | | 05/28/15 at 0900, Last dose on | | | | | | | 06/01/15 at 0900 | | | | | | + +-------+ +--------+---+---+ +-------+ +--------+---+---+ | Given | 05/31/20 | 300 mg | | | | | 15 8:29 | | | | | | AM PST | | | | +-------+ +--------+---+---+ | Given | 05/30/20 | 300 mg | | | | | 15 8:24 | | | | | | AM PST | | | | +-------+ +--------+---+---+ +---+---+ | | | +---+---+ + +-------+ +--------+---+---+ | allopurinol (ZYLOPRIM) tablet | Given | 05/27/20 | 600 mg | | | | 600 mg 600 mg, oral, ONCE, 1 | | 15 12:23 | | | | | dose, 05/26/15 at 2245 | | AM PST | | | | + +-------+ +--------+---+---+ +---+---+ | | | +---+---+ + +-------+ +--------+---+---+ | ALPRAZolam (XANAX) tablet 0.5 | Given | 07/07/20 | 0.5 mg | | | | mg 0.5 mg, oral, THREE TIMES | | 15 6:46 | | | | | DAILY NEEDED, Starting Lupe | | PM PST | | | | | 07/01/15 at 1550, Until Lupe | | | | | | | 07/08/15 at 2307, anxiety | | | | | | + +-------+ +--------+---+---+ +-------+ +--------+---+---+ | Given | 07/07/20 | 0.5 mg | | | | | 15 1:36 | | | | | | PM PST | | | | +-------+ +--------+---+---+ | Given | 07/07/20 | 0.5 mg | | | | | 15 8:45 | | | | | | AM PST | | | | +-------+ +--------+---+---+ +---+---+ | | | +---+---+ + +-------+ +------+---+---+ | alteplase (CATHFLO ACTIVASE) | Given | 06/27/20 | 2 mg | | | | injection 2 mg 2 mg, | | 15 7:51 | | | | | Intracatheter, NEEDED, | | PM PST | | | | | Starting 06/05/15 at 1607, | | | | | | | Until Lupe 07/08/15 at 2307, per | | | | | | | catheter protocol | | | | | | + +-------+ +------+---+---+ +-------+ +------+---+---+ | Given | 06/21/20 | 2 mg | | | | | 15 5:45 | | | | | | AM PST | | | | +-------+ +------+---+---+ | Given | 06/16/20 | 2 mg | | | | | 15 5:48 | | | | | | AM PST | | | | +-------+ +------+---+---+ +---+---+ | | | +---+---+ + +-------+ +-------+---+---+ | aluminum-magnesium | Given | 06/27/20 | 15 mL | | | | hydroxide-simethicone (MAALOX; | | 15 9:11 | | | | | MYLANTA) 200-200-20 mg/5 mL | | PM PST | | | | | suspension 15 mL 15 mL, oral, | | | | | | | FOUR TIMES DAILY NEEDED, | | | | | | | Starting 06/27/15 at 2050, | | | | | | | Until Lupe 07/08/15 at 2307, | | | | | | | dyspepsia | | | | | | + +-------+ +-------+---+---+ +---+---+ | | | +---+---+ + +-------+ +--------+---+---+ | amoxicillin-clavulanate | Given | 06/07/20 | 875 mg | | | | (AUGMENTIN) 875-125 mg 875 mg | | 15 8:53 | | | | | 875 mg, oral, TWICE DAILY, 10 | | AM PST | | | | | doses, First dose on 06/06/15 | | | | | | | at 2100, Last dose on Sun | | | | | | | 06/11/15 at 0900 | | | | | | + +-------+ +--------+---+---+ +-------+ +--------+---+---+ | Given | 06/06/20 | 875 mg | | | | | 15 9:31 | | | | | | PM PST | | | | +-------+ +--------+---+---+ +---+---+ | | | +---+---+ + +-------+ +-------+---+---+ | chlorhexidine (PERIDEX) | Given | 07/02/20 | 15 mL | | | | mouthwash 15 mL 15 mL, oral, | | 15 9:15 | | | | | EVERY 6 HOURS, First dose on Sun | | AM PST | | | | | 06/01/15 at 0530, Until | | | | | | | Discontinued | | | | | | + +-------+ +-------+---+---+ +-------+ +-------+---+---+ | Given | 07/01/20 | 15 mL | | | | | 15 6:09 | | | | | | PM PST | | | | +-------+ +-------+---+---+ | Given | 07/01/20 | 15 mL | | | | | 15 12:13 | | | | | | PM PST | | | | +-------+ +-------+---+---+ +---+---+ | | | +---+---+ + +-------+ +-------+---+---+ | chlorhexidine (PERIDEX) | Given | 07/08/20 | 15 mL | | | | mouthwash 15 mL 15 mL, oral, | | 15 3:32 | | | | | THREE TIMES DAILY, First dose on | | PM PST | | | | | 07/03/15 at 1030, Until | | | | | | | Discontinued | | | | | | + +-------+ +-------+---+---+ +-------+ +-------+---+---+ | Given | 07/08/20 | 15 mL | | | | | 15 9:22 | | | | | | AM PST | | | | +-------+ +-------+---+---+ | Given | 07/07/20 | 15 mL | | | | | 15 9:56 | | | | | | PM PST | | | | +-------+ +-------+---+---+ +---+---+ | | | +---+---+ + +-------+ +--------+---+---+ | colchicine tablet 0.6 mg 0.6 | Given | 05/27/20 | 0.6 mg | | | | mg, oral, TWICE DAILY, First dose | | 15 12:40 | | | | | (after last modification) on Sun | | AM PST | | | | | 05/26/15 at 2345, Until | | | | | | | Discontinued | | | | | | + +-------+ +--------+---+---+ +---+---+ | | | +---+---+ + +-------+ +-------+---+---+ | cyclobenzaprine (FLEXERIL) | Given | 06/08/20 | 10 mg | | | | tablet 10 mg 10 mg, oral, EVERY | | 15 6:45 | | | | | 8 HOURS NEEDED, Starting Sun | | AM PST | | | | | 06/06/15 at 1411, Until Lupe | | | | | | | 07/08/15 at 2307, muscle spasms | | | | | | + +-------+ +-------+---+---+ +-------+ +-------+---+---+ | Given | 06/07/20 | 10 mg | | | | | 15 10:10 | | | | | | PM PST | | | | +-------+ +-------+---+---+ | Given | 06/07/20 | 10 mg | | | | | 15 6:08 | | | | | | AM PST | | | | +-------+ +-------+---+---+ +---+---+ | | | +---+---+ + +-------+ +------+---+---+ | cyclobenzaprine (FLEXERIL) | Given | 06/06/20 | 5 mg | | | | tablet 5 mg 5 mg, oral, EVERY 8 | | 15 1:29 | | | | | HOURS NEEDED, Starting Sat | | PM PST | | | | | 06/05/15 at 2011, Until Sun | | | | | | | 06/06/15 at 1411, muscle spasms | | | | | | + +-------+ +------+---+---+ +-------+ +------+---+---+ | Given | 06/06/20 | 5 mg | | | | | 15 5:28 | | | | | | AM PST | | | | +-------+ +------+---+---+ | Given | 06/05/20 | 5 mg | | | | | 15 8:24 | | | | | | PM PST | | | | +-------+ +------+---+---+ +---+---+ | | | +---+---+ + +---------+ +--------+ +---+ | cytarabine (CYTOSAR) 210 mg in | New Bag | 06/02/20 | 210 mg | 23 mL/hr | | | NaCl 0.9 % IV 210 mg, | | 15 9:15 | | | | | intravenous, Administer over 24 | | PM PST | | | | | Hours, EVERY 24 HOURS, 7 doses, | | | | | | | First dose on Lupe 05/27/15 at | | | | | | | 2100, Last dose on Sun06/02/15 | | | | | | | at 2100, HIGH-RISK MEDICATION | | | | | | | Continuous infusion daily on | | | | | | | days 1 through 7. Titrate rate | | | | | | | to complete bag in 24 hours. Per | | | | | | | [employer] authorization, dose | | | | | | | standardization has been | | | | | | | approved for this order. Dose | | | | | | | changed from 211 mg (= 100 | | | | | | | mg/m2/dose) to 210 mg., | | | | | | + +---------+ +--------+ +---+ + + +--------+ +---+ | New Bag | 06/01/20 | 210 mg | 23 mL/hr | | | | 15 9:41 | | | | | | PM PST | | | | + + +--------+ +---+ | Restarted | 06/01/20 | 210 mg | 20.83 | | | | 15 10:50 | | mL/hr | | | | AM PST | | | | + + +--------+ +---+ +---+---+ | | | +---+---+ + +---------+ + +--------+---+ | cytarabine (CYTOSAR) 6,400 mg | New Bag | 06/14/20 | 6,400 mg | 104.7 | | | in NaCl 0.9 % IV 6,400 mg, | | 15 2:58 | | mL/hr | | | intravenous, Administer over 3 | | AM PST | | | | | Hours, EVERY 12 HOURS, 6 doses, | | | | | | | First dose on Sun06/11/15 at | | | | | | | 1500, Last dose on Sun06/14/15 at | | | | | | | 0300, HIGH RISK | | | | | | | MEDICATION-CHEMOTHERAPY Per P&T | | | | | | | Committee authorization, dose | | | | | | | standardization has been approved | | | | | | | for this order. Dose changed | | | | | | | from 6360 mg (= 3000 mg/m2 dose) | | | | | | | to 6400 mg., | | | | | | + +---------+ + +--------+---+ +---------+ + +---------+---+ | New Bag | 06/13/20 | 6,400 mg | 104.67 | | | | 15 3:43 | | mL/hr | | | | PM PST | | | | +---------+ + +---------+---+ | New Bag | 06/13/20 | 6,400 mg | 105 | | | | 15 2:57 | | mL/hr | | | | AM PST | | | | +---------+ + +---------+---+ +---+---+ | | | +---+---+ + +-------+ +-------+---+---+ | dexamethasone (DECADRON) tablet | Given | 06/13/20 | 20 mg | | | | 20 mg 20 mg, oral, EVERY 24 | | 15 1:37 | | | | | HOURS, 3 doses, First dose on Fri | | PM PST | | | | | 06/11/15 at 1400, Last dose on | | | | | | | 06/13/15 at 1400 | | | | | | + +-------+ +-------+---+---+ +-------+ +-------+---+---+ | Given | 06/12/20 | 20 mg | | | | | 15 2:09 | | | | | | PM PST | | | | +-------+ +-------+---+---+ | Given | 06/11/20 | 20 mg | | | | | 15 2:18 | | | | | | PM PST | | | | +-------+ +-------+---+---+ +---+---+ | | | +---+---+ + +-------+ +------+---+---+ | dexamethasone (DECADRON) tablet | Given | 05/29/20 | 8 mg | | | | 8 mg 8 mg, oral, EVERY 24 | | 15 7:56 | | | | | HOURS, 3 doses, First dose on Lupe | | PM PST | | | | | 05/27/15 at 1999, Last dose on | | | | | | | 05/29/15 at 1999 | | | | | | + +-------+ +------+---+---+ +-------+ +------+---+---+ | Given | 05/28/20 | 8 mg | | | | | 15 8:39 | | | | | | PM PST | | | | +-------+ +------+---+---+ | Given | 05/27/20 | 8 mg | | | | | 15 8:40 | | | | | | PM PST | | | | +-------+ +------+---+---+ +---+---+ | | | +---+---+ + +-------+ +------+---+---+ | dexamethasone (DECADRON) tablet | Given | 06/16/20 | 8 mg | | | | 8 mg 8 mg, oral, EVERY 24 | | 15 10:18 | | | | | HOURS, 3 doses, First dose on Mon | | AM PST | | | | | 06/14/15 at 1000, Last dose on | | | | | | | 06/16/15 at 1000 | | | | | | + +-------+ +------+---+---+ +-------+ +------+---+---+ | Given | 06/15/20 | 8 mg | | | | | 15 10:06 | | | | | | AM PST | | | | +-------+ +------+---+---+ | Given | 06/14/20 | 8 mg | | | | | 15 10:28 | | | | | | AM PST | | | | +-------+ +------+---+---+ +---+---+ | | | +---+---+ + +-------+ +-------+---+---+ | diphenhydrAMINE (BENADRYL) | Given | 06/22/20 | 25 mg | | | | capsule 25 mg 25 mg, oral, EVERY | | 15 8:50 | | | | | 4 HOURS NEEDED, Starting Lupe | | PM PST | | | | | 05/27/15 at 1749, Until Sun | | | | | | | 06/27/15 at 1713, | | | | | | | nausea/vomiting, extrapyramidal | | | | | | | symptoms | | | | | | + +-------+ +-------+---+---+ +-------+ +-------+---+---+ | Given | 06/21/20 | 25 mg | | | | | 15 9:06 | | | | | | PM PST | | | | +-------+ +-------+---+---+ | Given | 06/20/20 | 25 mg | | | | | 15 8:22 | | | | | | PM PST | | | | +-------+ +-------+---+---+ +---+---+ | | | +---+---+ + +-------+ +-------+---+---+ | diphenhydrAMINE (BENADRYL) | Given | 07/05/20 | 25 mg | | | | capsule 25-50 mg 25-50 mg, oral, | | 15 8:03 | | | | | EVERY 4 HOURS NEEDED, | | PM PST | | | | | Starting 06/28/15 at 1205, | | | | | | | Until Lupe 07/08/15 at 2307, | | | | | | | itching, nausea/vomiting, | | | | | | | extrapyramidal symptoms | | | | | | + +-------+ +-------+---+---+ +-------+ +-------+---+---+ | Given | 07/04/20 | 25 mg | | | | | 15 5:51 | | | | | | AM PST | | | | +-------+ +-------+---+---+ | Given | 07/03/20 | 25 mg | | | | | 15 12:57 | | | | | | PM PST | | | | +-------+ +-------+---+---+ +---+---+ | | | +---+---+ + +---------+ +-------+---+---+ | diphenhydrAMINE (BENADRYL) | New Bag | 06/27/20 | 25 mg | | | | injection 25 mg 25 mg, | | 15 12:00 | | | | | intravenous, EVERY 4 HOURS | | AM PST | | | | | NEEDED, Starting [facility] 05/27/15 at | | | | | | | 1749, Until 06/27/15 at 1713, | | | | | | | nausea/vomiting, extrapyramidal | | | | | | | symptoms | | | | | | + +---------+ +-------+---+---+ +---------+ +-------+---+---+ | New Bag | 06/25/20 | 25 mg | | | | | 15 11:35 | | | | | | PM PST | | | | +---------+ +-------+---+---+ | New Bag | 06/24/20 | 25 mg | | | | | 15 10:04 | | | | | | PM PST | | | | +---------+ +-------+---+---+ +---+---+ | | | +---+---+ + +---------+ +-------+---+---+ | diphenhydrAMINE (BENADRYL) | New Bag | 07/05/20 | 25 mg | | | | injection 25 mg 25 mg, | | 15 12:10 | | | | | intravenous, EVERY 4 HOURS | | AM PST | | | | | NEEDED, Starting 06/27/15 at | | | | | | | 1713, Until Lupe 07/08/15 at 2307, | | | | | | | itching, nausea/vomiting, | | | | | | | extrapyramidal symptoms | | | | | | + +---------+ +-------+---+---+ +---------+ +-------+---+---+ | New Bag | 07/04/20 | 25 mg | | | | | 15 12:36 | | | | | | AM PST | | | | +---------+ +-------+---+---+ | New Bag | 07/03/20 | 25 mg | | | | | 15 3:13 | | | | | | AM PST | | | | +---------+ +-------+---+---+ +---+---+ | | | +---+---+ + +-------+ +-------+---+---+ | | Given | 07/01/20 | 10 mL | | | | oiffzojeftERRVP-tpyltthgi-IHFBME | | 15 12:24 | | | | | (SPECIAL MOUTHWASH) suspension | | AM PST | | | | | (compound) 5-10 mL 5-10 mL, | | | | | | | oral, FOUR TIMES DAILY NEEDED, | | | | | | | Starting 06/02/15 at 0057, | | | | | | | Until Lupe 07/08/15 at 2307, sore | | | | | | | mouth | | | | | | + +-------+ +-------+---+---+ +-------+ +-------+---+---+ | Given | 06/30/20 | 10 mL | | | | | 15 7:48 | | | | | | PM PST | | | | +-------+ +-------+---+---+ | Given | 06/26/20 | 10 mL | | | | | 15 8:30 | | | | | | AM PST | | | | +-------+ +-------+---+---+ +---+---+ | | | +---+---+ + +-------+ +------+---+---+ | haloperidol (HALDOL) tablet | Given | 07/07/20 | 1 mg | | | | 0.5-2 mg 0.5-2 mg, oral, EVERY 4 | | 15 6:46 | | | | | HOURS NEEDED, Starting Fri | | PM PST | | | | | 06/11/15 at 1136, Until Lupe | | | | | | | 07/08/15 at 2307, nausea/vomiting | | | | | | + +-------+ +------+---+---+ +-------+ +------+---+---+ | Given | 07/07/20 | 1 mg | | | | | 15 1:36 | | | | | | PM PST | | | | +-------+ +------+---+---+ | Given | 07/07/20 | 1 mg | | | | | 15 8:45 | | | | | | AM PST | | | | +-------+ +------+---+---+ +---+---+ | | | +---+---+ + +---------+ +--------+---+---+ | haloperidol lactate (HALDOL) | New Bag | 07/05/20 | 0.5 mg | | | | injection 0.5-2 mg 0.5-2 mg, | | 15 6:05 | | | | | intravenous, EVERY 4 HOURS | | PM PST | | | | | NEEDED, Starting Sun06/11/15 at | | | | | | | 1136, Until Lupe 07/08/15 at 2307, | | | | | | | nausea/vomiting | | | | | | + +---------+ +--------+---+---+ +---------+ +--------+---+---+ | New Bag | 07/05/20 | 0.5 mg | | | | | 15 5:15 | | | | | | PM PST | | | | +---------+ +--------+---+---+ +---+---+ | | | +---+---+ + +-------+ +---+---+---+ | hydrocortisone 1 % cream | Given | 06/30/20 | | | | | topical, TWICE DAILY NEEDED, | | 15 10:15 | | | | | Starting Sun06/29/15 at 1209, | | PM PST | | | | | Until Sun07/08/15 at 2307, | | | | | | | itching, rash | | | | | | + +-------+ +---+---+---+ +-------+ +---+---+---+ | Given | 06/29/20 | | | | | | 15 7:41 | | | | | | PM PST | | | | +-------+ +---+---+---+ | Given | 06/29/20 | | | | | | 15 2:19 | | | | | | PM PST | | | | +-------+ +---+---+---+ +---+---+ | | | +---+---+ + +---------+ +------+---+---+ | HYDROmorphone (DILAUDID) | New Bag | 06/24/20 | 1 mg | | | | injection 0.5-1 mg 0.5-1 mg, | | 15 8:00 | | | | | intravenous, EVERY 2 HOURS | | PM PST | | | | | NEEDED, Starting Lupe 06/24/15 at | | | | | | | 1335, Until Lupe 06/24/15 at 2048, | | | | | | | moderate pain | | | | | | + +---------+ +------+---+---+ +---------+ +------+---+---+ | New Bag | 06/24/20 | 1 mg | | | | | 15 5:54 | | | | | | PM PST | | | | +---------+ +------+---+---+ | New Bag | 06/24/20 | 1 mg | | | | | 15 3:51 | | | | | | PM PST | | | | +---------+ +------+---+---+ +---+---+ | | | +---+---+ + +---------+ +------+---+---+ | HYDROmorphone (DILAUDID) | New Bag | 06/25/20 | 2 mg | | | | injection 0.5-2 mg 0.5-2 mg, | | 15 8:56 | | | | | intravenous, EVERY 2 HOURS | | AM PST | | | | | NEEDED, Starting Lupe 06/24/15 at | | | | | | | 2048, Until Lupe 07/08/15 at 2307, | | | | | | | moderate pain | | | | | | + +---------+ +------+---+---+ +---------+ +------+---+---+ | New Bag | 06/25/20 | 2 mg | | | | | 15 4:30 | | | | | | AM PST | | | | +---------+ +------+---+---+ | New Bag | 06/24/20 | 2 mg | | | | | 15 10:04 | | | | | | PM PST | | | | +---------+ +------+---+---+ +---+---+ | | | +---+---+ + +-------+ +------+---+---+ | HYDROmorphone (DILAUDID) tablet | Given | 06/04/20 | 4 mg | | | | 2-4 mg 2-4 mg, oral, EVERY 4 | | 15 9:50 | | | | | HOURS NEEDED, Starting Lupe | | AM PST | | | | | 06/03/15 at 1630, Until Fri | | | | | | | 06/04/15 at 1148, moderate pain | | | | | | + +-------+ +------+---+---+ +-------+ +------+---+---+ | Given | 06/04/20 | 4 mg | | | | | 15 5:33 | | | | | | AM PST | | | | +-------+ +------+---+---+ | Given | 06/03/20 | 4 mg | | | | | 15 9:10 | | | | | | PM PST | | | | +-------+ +------+---+---+ +---+---+ | | | +---+---+ + +-------+ +------+---+---+ | HYDROmorphone (DILAUDID) tablet | Given | 07/02/20 | 4 mg | | | | 6-10 mg 6-10 mg, oral, EVERY 3 | | 15 9:23 | | | | | HOURS NEEDED, Starting Fri | | AM PST | | | | | 06/25/15 at 0914, Until Fri | | | | | | | 07/02/15 at 1038, moderate pain, | | | | | | | severe pain | | | | | | + +-------+ +------+---+---+ +-------+ +------+---+---+ | Given | 07/01/20 | 6 mg | | | | | 15 6:09 | | | | | | PM PST | | | | +-------+ +------+---+---+ | Given | 07/01/20 | 6 mg | | | | | 15 2:52 | | | | | | PM PST | | | | +-------+ +------+---+---+ +---+---+ | | | +---+---+ + +---------+ +-------+-------+---+ | IDArubicin (IDAMYCIN) 25 mg in | New Bag | 05/29/20 | 25 mg | 250 | | | NaCl 0.9 % IV 25 mg, | | 15 9:46 | | mL/hr | | | intravenous, Administer over 30 | | PM PST | | | | | Minutes, EVERY 24 HOURS, 3 doses, | | | | | | | First dose on Lupe 05/27/15 at | | | | | | | 2100, Last dose on 05/29/15 | | | | | | | at 2100, HIGH RISK | | | | | | | MEDICATION-CHEMOTHERAPY | | | | | | | Vesicant. Administer through | | | | | | | running IV line. Stop infusing if | | | | | | | pain at injection site. Infuse | | | | | | | through central line Days 1 | | | | | | | through 3. Per [employer] | | | | | | | authorization, dose | | | | | | | standardization has been approved | | | | | | | for this order. Dose changed | | | | | | | from 25.32 mg (= 12 mg/m2/dose) | | | | | | | to 25 mg., | | | | | | + +---------+ +-------+-------+---+ + + +-------+-------+---+ | New Bag | 05/28/20 | 25 mg | 250 | | | | 15 9:31 | | mL/hr | | | | PM PST | | | | + + +-------+-------+---+ | Rate/Dose Verify | 05/27/20 | 25 mg | 250 | | | | 15 10:02 | | mL/hr | | | | PM PST | | | | + + +-------+-------+---+ +---+---+ | | | +---+---+ + +---------+ +--------+---+---+ | iohexol (OMNIPAQUE) 300 mg | New Bag | 06/07/20 | 100 mL | | | | iodine/mL injection 100 mL 100 | | 15 12:36 | | | | | mL, intravenous, PROCEDURE ONCE, | | PM PST | | | | | 1 dose, Sun06/07/15 at 1245 | | | | | | + +---------+ +--------+---+---+ +---+---+ | | | +---+---+ + +-------+ +--------+---+---+ | levofloxacin (LEVAQUIN) tablet | Given | 06/07/20 | 500 mg | | | | 500 mg 500 mg, oral, DAILY, | | 15 8:53 | | | | | First dose on Sun05/28/15 at | | AM PST | | | | | 1200, Until Discontinued | | | | | | + +-------+ +--------+---+---+ +-------+ +--------+---+---+ | Given | 06/06/20 | 500 mg | | | | | 15 8:38 | | | | | | AM PST | | | | +-------+ +--------+---+---+ | Given | 06/05/20 | 500 mg | | | | | 15 9:08 | | | | | | AM PST | | | | +-------+ +--------+---+---+ +---+---+ | | | +---+---+ + +-------+ +--------+---+---+ | levofloxacin (LEVAQUIN) tablet | Given | 06/17/20 | 500 mg | | | | 500 mg 500 mg, oral, DAILY, | | 15 9:24 | | | | | First dose on 06/14/15 at | | AM PST | | | | | 0945, Until Discontinued | | | | | | + +-------+ +--------+---+---+ +-------+ +--------+---+---+ | Given | 06/16/20 | 500 mg | | | | | 15 8:49 | | | | | | AM PST | | | | +-------+ +--------+---+---+ | Given | 06/15/20 | 500 mg | | | | | 15 8:50 | | | | | | AM PST | | | | +-------+ +--------+---+---+ +---+---+ | | | +---+---+ + +-------+ +--------+---+---+ | levofloxacin (LEVAQUIN) tablet | Given | 07/08/20 | 500 mg | | | | 500 mg 500 mg, oral, DAILY, | | 15 9:23 | | | | | First dose on Sun06/22/15 at | | AM PST | | | | | 1100, Until Discontinued | | | | | | + +-------+ +--------+---+---+ +-------+ +--------+---+---+ | Given | 07/07/20 | 500 mg | | | | | 15 8:45 | | | | | | AM PST | | | | +-------+ +--------+---+---+ | Given | 07/06/20 | 500 mg | | | | | 15 8:51 | | | | | | AM PST | | | | +-------+ +--------+---+---+ +---+---+ | | | +---+---+ + +-------+ +------+---+---+ | loperamide (IMODIUM) capsule 2 | Given | 06/29/20 | 2 mg | | | | mg 2 mg, oral, FOUR TIMES DAILY | | 15 7:57 | | | | | NEEDED, Starting 06/12/15 | | PM PST | | | | | at 1824, Until [place] 07/08/15 at | | | | | | | 2307, diarrhea | | | | | | + +-------+ +------+---+---+ +-------+ +------+---+---+ | Given | 06/28/20 | 2 mg | | | | | 15 10:51 | | | | | | PM PST | | | | +-------+ +------+---+---+ | Given | 06/17/20 | 2 mg | | | | | 15 11:57 | | | | | | AM PST | | | | +-------+ +------+---+---+ +---+---+ | | | +---+---+ + +---------+ +------+---+---+ | LORazepam (ATIVAN) injection 2 | New Bag | 07/08/20 | 2 mg | | | | mg 2 mg, intravenous, ONCE, 1 | | 15 7:25 | | | | | dose, [facility] 07/08/15 at 0715 | | AM PST | | | | + +---------+ +------+---+---+ +---+---+ | | | +---+---+ + +-------+ +--------+---+---+ | LORazepam (ATIVAN) tablet 0.5 | Given | 05/29/20 | 0.5 mg | | | | mg 0.5 mg, oral, EVERY 24 HOURS | | 15 9:59 | | | | | NEEDED, Starting [facility] 05/27/15 | | PM PST | | | | | at 1999, Until 05/30/15 at | | | | | | | 1959, anxiety, premedication for | | | | | | | chemo | | | | | | + +-------+ +--------+---+---+ +-------+ +--------+---+---+ | Given | 05/28/20 | 0.5 mg | | | | | 15 9:36 | | | | | | PM PST | | | | +-------+ +--------+---+---+ | Given | 05/28/20 | 0.5 mg | | | | | 15 5:59 | | | | | | AM PST | | | | +-------+ +--------+---+---+ +---+---+ | | | +---+---+ + +-------+ +--------+---+---+ | LORazepam (ATIVAN) tablet 0.5 | Given | 06/30/20 | 0.5 mg | | | | mg 0.5 mg, oral, EVERY 6 HOURS | | 15 4:20 | | | | | NEEDED, Starting 05/30/15 | | PM PST | | | | | at 2201, Until 06/30/15 at | | | | | | | 1721, insomnia, nausea/vomiting | | | | | | + +-------+ +--------+---+---+ +-------+ +--------+---+---+ | Given | 06/29/20 | 0.5 mg | | | | | 15 11:31 | | | | | | PM PST | | | | +-------+ +--------+---+---+ | Given | 06/29/20 | 0.5 mg | | | | | 15 2:45 | | | | | | PM PST | | | | +-------+ +--------+---+---+ +---+---+ | | | +---+---+ + +-------+ +------+---+---+ | LORazepam (ATIVAN) tablet 0.5-1 | Given | 07/01/20 | 1 mg | | | | mg 0.5-1 mg, oral, EVERY 6 | | 15 2:52 | | | | | HOURS NEEDED, Starting Wed | | PM PST | | | | | 06/30/15 at 1721, Until [place] | | | | | | | 07/01/15 at 1550, insomnia, | | | | | | | nausea/vomiting | | | | | | + +-------+ +------+---+---+ +-------+ +--------+---+---+ | Given | 07/01/20 | 0.5 mg | | | | | 15 8:55 | | | | | | AM PST | | | | +-------+ +--------+---+---+ | Given | 07/01/20 | 0.5 mg | | | | | 15 8:49 | | | | | | AM PST | | | | +-------+ +--------+---+---+ +---+---+ | | | +---+---+ + +-------+ +--------+---+---+ | magnesium citrate liquid 296 mL | Given | 06/08/20 | 296 mL | | | | 296 mL, oral, DAILY NEEDED, | | 15 7:06 | | | | | Starting e 06/08/15 at 1758, | | PM PST | | | | | Until [facility] 07/08/15 at 2307, | | | | | | | constipation | | | | | | + +-------+ +--------+---+---+ +---+---+ | | | +---+---+ + +---------+ +-------+-------+---+ | mitoXANtrone (NOVANTRONE) 22 mg | New Bag | 06/16/20 | 22 mg | 222 | | | in dextrose 5 % IV 22 mg, | | 15 11:20 | | mL/hr | | | intravenous, Administer over 30 | | AM PST | | | | | Minutes, EVERY 24 HOURS, 3 doses, | | | | | | | First dose on Sun06/14/15 at | | | | | | | 1100, Last dose on Sun06/16/15 at | | | | | | | 1100, HIGH-RISK MEDICATION | | | | | | | Infuse over 30 minutes Per | | | | | | | [employer] authorization, | | | | | | | dose standardization has been | | | | | | | approved for this order. Dose | | | | | | | changed from 21.2 (= 10 | | | | | | | mg/m2/dose) to 22 mg., | | | | | | + +---------+ +-------+-------+---+ +---------+ +-------+-------+---+ | New Bag | 06/15/20 | 22 mg | 222 | | | | 15 11:11 | | mL/hr | | | | AM PST | | | | +---------+ +-------+-------+---+ | New Bag | 06/14/20 | 22 mg | 222 | | | | 15 11:15 | | mL/hr | | | | AM PST | | | | +---------+ +-------+-------+---+ +---+---+ | | | +---+---+ + + + +---+---+---+ | morphine 5 mg/mL [facility] infusion | Rate/Dos | 06/10/20 | | | | | (ADULT) intravenous, CONTINUOUS, | e Change | 15 8:09 | | | | | Starting 06/07/15 at 1045, | | AM PST | | | | | Until 06/11/15 at 1319 | | | | | | + + + +---+---+---+ + + +--------+---+---+ | New Bag | 06/09/20 | 250 mg | | | | | 15 6:04 | | | | | | PM PST | | | | + + +--------+---+---+ | Bolus from Same Bag | 06/09/20 | 3 mg | | | | | 15 12:54 | | | | | | PM PST | | | | + + +--------+---+---+ +---+---+ | | | +---+---+ + +---------+ +------+---+---+ | morphine injection 1-4 mg 1-4 | New Bag | 11/30/20 | 4 mg | | | | mg, intravenous, EVERY 4 HOURS | | 15 10:10 | | | | | NEEDED, Starting [place] 06/03/15 at | | AM PST | | | | | 1330, Until 06/07/15 at | | | | | | | 1015, moderate pain | | | | | | + +---------+ +------+---+---+ +---------+ +------+---+---+ | New Bag | 06/07/20 | 4 mg | | | | | 15 6:08 | | | | | | AM PST | | | | +---------+ +------+---+---+ | New Bag | 06/07/20 | 4 mg | | | | | 15 1:52 | | | | | | AM PST | | | | +---------+ +------+---+---+ +---+---+ | | | +---+---+ + +---------+ +------+---+---+ | morphine injection 1-4 mg 1-4 | New Bag | 06/24/20 | 2 mg | | | | mg, intravenous, EVERY 4 HOURS | | 15 12:37 | | | | | NEEDED, Starting Sun06/11/15 at | | PM PST | | | | | 1318, Until [place] 06/24/15 at 1336, | | | | | | | moderate pain | | | | | | + +---------+ +------+---+---+ +---------+ +------+---+---+ | New Bag | 06/24/20 | 2 mg | | | | | 15 11:56 | | | | | | AM PST | | | | +---------+ +------+---+---+ +---+---+ | | | +---+---+ + +---------+ +------+---+---+ | morphine injection 2 mg 2 mg, | New Bag | 07/08/20 | 2 mg | | | | intravenous, EVERY 2 HOURS | | 15 8:00 | | | | | NEEDED, Starting [place] 07/08/15 at | | AM PST | | | | | 0751, Until Sun07/08/15 at 2307, | | | | | | | severe pain | | | | | | + +---------+ +------+---+---+ +---+---+ | | | +---+---+ + + + +-------+-------+---+ | NaCl 0.9 % solution 125 mL/hr, | Restarte | 05/27/20 | 125 | 125 | | | intravenous, CONTINUOUS, | d | 15 4:00 | mL/hr | mL/hr | | | Starting 05/26/15 at 2345, | | PM PST | | | | | Until 05/28/15 at 0747 | | | | | | + + + +-------+-------+---+ +---------+ +-------+-------+---+ | New Bag | 05/26/20 | 125 | 125 | | | | 15 11:48 | mL/hr | mL/hr | | | | PM PST | | | | +---------+ +-------+-------+---+ +---+---+ | | | +---+---+ + +---------+ +-------+-------+---+ | NaCl 0.9 % solution 100 mL/hr, | New Bag | 06/03/20 | 100 | 100 | | | intravenous, CONTINUOUS, | | 15 9:26 | mL/hr | mL/hr | | | Starting [facility] 05/27/15 at 1800, | | AM PST | | | | | Until [facility] 06/03/15 at 2218 | | | | | | + +---------+ +-------+-------+---+ +---------+ +-------+-------+---+ | New Bag | 06/02/20 | 100 | 100 | | | | 15 11:53 | mL/hr | mL/hr | | | | PM PST | | | | +---------+ +-------+-------+---+ | New Bag | 06/02/20 | 100 | 100 | | | | 15 3:41 | mL/hr | mL/hr | | | | PM PST | | | | +---------+ +-------+-------+---+ +---+---+ | | | +---+---+ + +---------+ +-------+-------+---+ | NaCl 0.9 % solution 100 mL/hr, | New Bag | 06/16/20 | 100 | 100 | | | intravenous, CONTINUOUS, | | 15 5:55 | mL/hr | mL/hr | | | Starting 06/11/15 at 1145, | | AM PST | | | | | Until [facility] 06/16/15 at 1235 | | | | | | + +---------+ +-------+-------+---+ +---------+ +-------+-------+---+ | New Bag | 06/15/20 | 100 | 100 | | | | 15 8:02 | mL/hr | mL/hr | | | | PM PST | | | | +---------+ +-------+-------+---+ | New Bag | 06/15/20 | 100 | 100 | | | | 15 8:50 | mL/hr | mL/hr | | | | AM PST | | | | +---------+ +-------+-------+---+ +---+---+ | | | +---+---+ + +---------+ + +---+---+ | NaCl 0.9 % solution 1,000 mL, | New Bag | 07/02/20 | 1,000 mL | | | | intravenous, ONCE, 1 dose, Fri | | 15 10:00 | | | | | 07/02/15 at 0800 | | AM PST | | | | + +---------+ + +---+---+ +---+---+ | | | +---+---+ + +-------+ +-------+---+---+ | OLANZapine (ZYPREXA) tablet 10 | Given | 06/24/20 | 10 mg | | | | mg 10 mg, oral, AT BEDTIME | | 15 8:00 | | | | | NEEDED, Starting Sun06/23/15 at | | PM PST | | | | | 1116, Until Sun06/25/15 at 1430, | | | | | | | insomnia | | | | | | + +-------+ +-------+---+---+ +-------+ +-------+---+---+ | Given | 06/23/20 | 10 mg | | | | | 15 8:37 | | | | | | PM PST | | | | +-------+ +-------+---+---+ +---+---+ | | | +---+---+ + +-------+ +-------+---+---+ | OLANZapine (ZYPREXA) tablet 10 | Given | 07/01/20 | 10 mg | | | | mg 10 mg, oral, AT BEDTIME, | | 15 6:09 | | | | | First dose (after last | | PM PST | | | | | modification) on 06/25/15 at | | | | | | | 2000, Until Discontinued | | | | | | + +-------+ +-------+---+---+ +-------+ +-------+---+---+ | Given | 06/30/20 | 10 mg | | | | | 15 7:47 | | | | | | PM PST | | | | +-------+ +-------+---+---+ | Given | 06/29/20 | 10 mg | | | | | 15 6:11 | | | | | | PM PST | | | | +-------+ +-------+---+---+ +---+---+ | | | +---+---+ + +---------+ +------+---+---+ | ondansetron (ZOFRAN) injection | New Bag | 06/04/20 | 4 mg | | | | 4 mg 4 mg, intravenous, EVERY 12 | | 15 12:13 | | | | | HOURS NEEDED, Starting Sun | | AM PST | | | | | 05/30/15 at 2005, Until Fri | | | | | | | 06/04/15 at 1147, nausea/vomiting | | | | | | + +---------+ +------+---+---+ +---------+ +------+---+---+ | New Bag | 06/03/20 | 4 mg | | | | | 15 9:26 | | | | | | AM PST | | | | +---------+ +------+---+---+ | New Bag | 06/02/20 | 4 mg | | | | | 15 2:41 | | | | | | PM PST | | | | +---------+ +------+---+---+ +---+---+ | | | +---+---+ + +---------+ +------+---+---+ | ondansetron (ZOFRAN) injection | New Bag | 06/29/20 | 4 mg | | | | 4 mg 4 mg, intravenous, EVERY 12 | | 15 8:57 | | | | | HOURS, First dose on [facility] | | AM PST | | | | | 06/17/15 at 0900, Until | | | | | | | Discontinued | | | | | | + +---------+ +------+---+---+ +---------+ +------+---+---+ | New Bag | 06/28/20 | 4 mg | | | | | 15 9:45 | | | | | | PM PST | | | | +---------+ +------+---+---+ | New Bag | 06/28/20 | 4 mg | | | | | 15 8:42 | | | | | | AM PST | | | | +---------+ +------+---+---+ +---+---+ | | | +---+---+ + +---------+ +------+---+---+ | ondansetron (ZOFRAN) IV 8 mg 8 | New Bag | 06/16/20 | 8 mg | | | | mg, intravenous, DAILY, 3 doses, | | 15 10:18 | | | | | First dose on Sun06/14/15 at | | AM PST | | | | | 0900, Last dose on Sun06/16/15 at | | | | | | | 1000 | | | | | | + +---------+ +------+---+---+ +---------+ +------+---+---+ | New Bag | 06/15/20 | 8 mg | | | | | 15 10:05 | | | | | | AM PST | | | | +---------+ +------+---+---+ | New Bag | 06/14/20 | 8 mg | | | | | 15 9:18 | | | | | | AM PST | | | | +---------+ +------+---+---+ +---+---+ | | | +---+---+ + +-------+ +-------+---+---+ | ondansetron (ZOFRAN) tablet 16 | Given | 05/29/20 | 16 mg | | | | mg 16 mg, oral, EVERY 24 HOURS, | | 15 7:56 | | | | | 3 doses, First dose on [facility] | | PM PST | | | | | 05/27/15 at 1999, Last dose on | | | | | | | 05/29/15 at 1999 | | | | | | + +-------+ +-------+---+---+ +-------+ +-------+---+---+ | Given | 05/28/20 | 16 mg | | | | | 15 8:39 | | | | | | PM PST | | | | +-------+ +-------+---+---+ | Given | 05/27/20 | 16 mg | | | | | 15 8:40 | | | | | | PM PST | | | | +-------+ +-------+---+---+ +---+---+ | | | +---+---+ + +-------+ +-------+---+---+ | ondansetron (ZOFRAN) tablet 24 | Given | 06/13/20 | 24 mg | | | | mg 24 mg, oral, EVERY 24 HOURS, | | 15 1:37 | | | | | 3 doses, First dose on Fri | | PM PST | | | | | 06/11/15 at 1400, Last dose on Sun | | | | | | | 06/13/15 at 1400 | | | | | | + +-------+ +-------+---+---+ +-------+ +-------+---+---+ | Given | 06/12/20 | 24 mg | | | | | 15 2:09 | | | | | | PM PST | | | | +-------+ +-------+---+---+ | Given | 06/11/20 | 24 mg | | | | | 15 2:17 | | | | | | PM PST | | | | +-------+ +-------+---+---+ +---+---+ | | | +---+---+ + +-------+ +------+---+---+ | ondansetron (ZOFRAN) tablet 8 | Given | 06/11/20 | 8 mg | | | | mg 8 mg, oral, TWICE DAILY, | | 15 8:14 | | | | | First dose on Sun06/04/15 at | | AM PST | | | | | 1345, Until Discontinued | | | | | | + +-------+ +------+---+---+ +-------+ +------+---+---+ | Given | 06/10/20 | 8 mg | | | | | 15 8:56 | | | | | | PM PST | | | | +-------+ +------+---+---+ | Given | 06/10/20 | 8 mg | | | | | 15 8:08 | | | | | | AM PST | | | | +-------+ +------+---+---+ +---+---+ | | | +---+---+ + +-------+ +------+---+---+ | oxyCODONE (immediate release) | Given | 06/01/20 | 5 mg | | | | (ROXICODONE) tablet 5 mg 5 mg, | | 15 11:53 | | | | | oral, EVERY 4 HOURS NEEDED, | | PM PST | | | | | Starting Sun05/26/15 at 2250, | | | | | | | Until Sun06/02/15 at 0027, | | | | | | | severe pain | | | | | | + +-------+ +------+---+---+ +---+---+ | | | +---+---+ + +-------+ +-------+---+---+ | oxyCODONE (immediate release) | Given | 06/03/20 | 10 mg | | | | (ROXICODONE) tablet 5-10 mg 5-10 | | 15 1:27 | | | | | mg, oral, EVERY 4 HOURS | | PM PST | | | | | NEEDED, Starting Sun06/02/15 at | | | | | | | 0026, Until [facility] 06/03/15 at 1630, | | | | | | | severe pain | | | | | | + +-------+ +-------+---+---+ +-------+ +-------+---+---+ | Given | 06/03/20 | 10 mg | | | | | 15 9:26 | | | | | | AM PST | | | | +-------+ +-------+---+---+ | Given | 06/02/20 | 10 mg | | | | | 15 7:46 | | | | | | PM PST | | | | +-------+ +-------+---+---+ +---+---+ | | | +---+---+ + +-------+ +-------+---+---+ | oxyCODONE (immediate release) | Given | 06/04/20 | 10 mg | | | | (ROXICODONE) tablet 5-10 mg 5-10 | | 15 1:31 | | | | | mg, oral, EVERY 6 HOURS | | PM PST | | | | | NEEDED, Starting Sun06/04/15 at | | | | | | | 1147, Until Sun06/04/15 at 1724, | | | | | | | moderate pain | | | | | | + +-------+ +-------+---+---+ +---+---+ | | | +---+---+ + +-------+ +-------+---+---+ | oxyCODONE (immediate release) | Given | 06/06/20 | 10 mg | | | | (ROXICODONE) tablet 5-10 mg 5-10 | | 15 3:41 | | | | | mg, oral, EVERY 4 HOURS | | PM PST | | | | | NEEDED, Starting Sun06/04/15 at | | | | | | | 1730, Until 06/06/15 at 1853, | | | | | | | moderate pain | | | | | | + +-------+ +-------+---+---+ +-------+ +-------+---+---+ | Given | 06/06/20 | 10 mg | | | | | 15 11:42 | | | | | | AM PST | | | | +-------+ +-------+---+---+ | Given | 06/06/20 | 10 mg | | | | | 15 7:12 | | | | | | AM PST | | | | +-------+ +-------+---+---+ +---+---+ | | | +---+---+ + +-------+ +-------+---+---+ | oxyCODONE (immediate release) | Given | 06/24/20 | 10 mg | | | | (ROXICODONE) tablet 5-10 mg 5-10 | | 15 8:21 | | | | | mg, oral, EVERY 4 HOURS | | AM PST | | | | | NEEDED, Starting Sun06/11/15 at | | | | | | | 1318, Until Sun06/25/15 at 0914, | | | | | | | moderate pain | | | | | | + +-------+ +-------+---+---+ +-------+ +-------+---+---+ | Given | 06/23/20 | 10 mg | | | | | 15 10:25 | | | | | | PM PST | | | | +-------+ +-------+---+---+ | Given | 06/23/20 | 10 mg | | | | | 15 6:23 | | | | | | PM PST | | | | +-------+ +-------+---+---+ +---+---+ | | | +---+---+ + +-------+ +-------+---+---+ | oxyCODONE (immediate release) | Given | 07/02/20 | 10 mg | | | | (ROXICODONE) tablet 5-10 mg 5-10 | | 15 3:42 | | | | | mg, oral, EVERY 4 HOURS | | PM PST | | | | | NEEDED, Starting Sun07/02/15 at | | | | | | | 1038, Until Sun07/02/15 at 1636, | | | | | | | moderate pain | | | | | | + +-------+ +-------+---+---+ +---+---+ | | | +---+---+ + +-------+ +-------+---+---+ | oxyCODONE (immediate release) | Given | 07/08/20 | 10 mg | | | | (ROXICODONE) tablet 5-10 mg 5-10 | | 15 3:32 | | | | | mg, oral, EVERY 3 HOURS | | PM PST | | | | | NEEDED, Starting Sun07/02/15 at | | | | | | | 1645, Until Sun07/08/15 at 2307, | | | | | | | moderate pain | | | | | | + +-------+ +-------+---+---+ +-------+ +-------+---+---+ | Given | 07/08/20 | 10 mg | | | | | 15 5:07 | | | | | | AM PST | | | | +-------+ +-------+---+---+ | Given | 07/07/20 | 10 mg | | | | | 15 9:56 | | | | | | PM PST | | | | +-------+ +-------+---+---+ +---+---+ | | | +---+---+ + +-------+ +-------+---+---+ | oxyCODONE (immediate release) | Given | 06/07/20 | 15 mg | | | | (ROXICODONE) tablet 5-15 mg 5-15 | | 15 8:53 | | | | | mg, oral, EVERY 4 HOURS | | AM PST | | | | | NEEDED, Starting 06/06/15 at | | | | | | | 1853, Until 06/07/15 at 1015, | | | | | | | moderate pain | | | | | | + +-------+ +-------+---+---+ +-------+ +-------+---+---+ | Given | 06/07/20 | 15 mg | | | | | 15 4:37 | | | | | | AM PST | | | | +-------+ +-------+---+---+ | Given | 06/07/20 | 15 mg | | | | | 15 12:00 | | | | | | AM PST | | | | +-------+ +-------+---+---+ +---+---+ | | | +---+---+ + +---------+ +-------+---+---+ | piperacillin-tazobactam (ZOSYN) | New Bag | 06/14/20 | 4.5 g | | | | IV (minibag+) 4.5 g 4.5 g, | | 15 6:06 | | | | | intravenous, EVERY 6 HOURS, First | | AM PST | | | | | dose on Sun06/09/15 at 1000, | | | | | | | Until Discontinued | | | | | | + +---------+ +-------+---+---+ +---------+ +-------+---+---+ | New Bag | 06/13/20 | 4.5 g | | | | | 15 11:05 | | | | | | PM PST | | | | +---------+ +-------+---+---+ | New Bag | 06/13/20 | 4.5 g | | | | | 15 6:50 | | | | | | PM PST | | | | +---------+ +-------+---+---+ +---+---+ | | | +---+---+ + +---------+ +-------+---+---+ | piperacillin-tazobactam (ZOSYN) | New Bag | 06/22/20 | 4.5 g | | | | IV (minibag+) 4.5 g 4.5 g, | | 15 5:03 | | | | | intravenous, EVERY 6 HOURS, First | | AM PST | | | | | dose on [facility] 06/17/15 at 1700, | | | | | | | Until Discontinued | | | | | | + +---------+ +-------+---+---+ +---------+ +-------+---+---+ | New Bag | 06/21/20 | 4.5 g | | | | | 15 11:12 | | | | | | PM PST | | | | +---------+ +-------+---+---+ | New Bag | 06/21/20 | 4.5 g | | | | | 15 4:49 | | | | | | PM PST | | | | +---------+ +-------+---+---+ +---+---+ | | | +---+---+ + +---------+ +-------+---+---+ | piperacillin-tazobactam (ZOSYN) | New Bag | 06/09/20 | 4.5 g | | | | IV 4.5 g 4.5 g, intravenous, | | 15 4:37 | | | | | EVERY 6 HOURS, First dose on Mon | | AM PST | | | | | 06/07/15 at 1530, Until | | | | | | | Discontinued | | | | | | + +---------+ +-------+---+---+ +---------+ +-------+---+---+ | New Bag | 06/08/20 | 4.5 g | | | | | 15 9:00 | | | | | | PM PST | | | | +---------+ +-------+---+---+ | New Bag | 06/08/20 | 4.5 g | | | | | 15 3:32 | | | | | | PM PST | | | | +---------+ +-------+---+---+ +---+---+ | | | +---+---+ + +-------+ +------+---+---+ | polyethylene glycol (MIRALAX) | Given | 06/08/20 | 17 g | | | | powder 17 g 17 g, oral, DAILY, | | 15 8:01 | | | | | First dose on Sun06/08/15 at | | AM PST | | | | | 0900, Until Discontinued | | | | | | + +-------+ +------+---+---+ +---+---+ | | | +---+---+ + +-------+ +--------+---+---+ | posaconazole DR (NOXAFIL) | Given | 05/31/20 | 300 mg | | | | tablet 300 mg 300 mg, oral, | | 15 9:18 | | | | | TWICE DAILY, 2 doses, First dose | | PM PST | | | | | on Sun05/31/15 at 1000, Last | | | | | | | dose on Sun05/31/15 at 2100 | | | | | | + +-------+ +--------+---+---+ +-------+ +--------+---+---+ | Given | 05/31/20 | 300 mg | | | | | 15 11:47 | | | | | | AM PST | | | | +-------+ +--------+---+---+ +---+---+ | | | +---+---+ + +-------+ +--------+---+---+ | posaconazole DR (NOXAFIL) | Given | 06/11/20 | 300 mg | | | | tablet 300 mg 300 mg, oral, | | 15 8:15 | | | | | DAILY, First dose on Sun06/01/15 | | AM PST | | | | | at 0900, Until Discontinued | | | | | | + +-------+ +--------+---+---+ +-------+ +--------+---+---+ | Given | 06/10/20 | 300 mg | | | | | 15 8:08 | | | | | | AM PST | | | | +-------+ +--------+---+---+ | Given | 06/09/20 | 300 mg | | | | | 15 7:44 | | | | | | AM PST | | | | +-------+ +--------+---+---+ +---+---+ | | | +---+---+ + +-------+ +--------+---+---+ | posaconazole DR (NOXAFIL) | Given | 07/08/20 | 300 mg | | | | tablet 300 mg 300 mg, oral, | | 15 9:22 | | | | | DAILY, First dose (after last | | AM PST | | | | | modification) on Sun06/17/15 at | | | | | | | 0900, Until Discontinued | | | | | | + +-------+ +--------+---+---+ +-------+ +--------+---+---+ | Given | 07/07/20 | 300 mg | | | | | 15 8:45 | | | | | | AM PST | | | | +-------+ +--------+---+---+ | Given | 07/06/20 | 300 mg | | | | | 15 8:51 | | | | | | AM PST | | | | +-------+ +--------+---+---+ +---+---+ | | | +---+---+ + +-------+ +--------+---+---+ | potassium chloride SR (K-DUR) | Given | 06/12/20 | 40 mEq | | | | tablet 40 mEq 40 mEq, oral, | | 15 3:07 | | | | | NEEDED, Starting 05/26/15 at | | PM PST | | | | | 2232, Until [facility] 07/08/15 at 2307, | | | | | | | potassium level 3-3.4 mmol/L | | | | | | + +-------+ +--------+---+---+ +---+---+ | | | +---+---+ + + + +---------+---+---+ | prednisoLONE acetate (PRED | Pt | 06/17/20 | 2 drops | | | | FORTE) 1 % ophthalmic drops, | Administ | 15 9:27 | | | | | suspension 2 drop 2 drop, Both | ered | AM PST | | | | | Eyes, EVERY 6 HOURS, 24 doses, | | | | | | | First dose on Sun06/11/15 at | | | | | | | 1430, Last dose on Sun06/17/15 | | | | | | | at 1000 | | | | | | + + + +---------+---+---+ +-------+ +---------+---+---+ | Given | 06/17/20 | 2 drops | | | | | 15 5:00 | | | | | | AM PST | | | | +-------+ +---------+---+---+ | Given | 06/16/20 | 2 drops | | | | | 15 9:11 | | | | | | PM PST | | | | +-------+ +---------+---+---+ +---+---+ | | | +---+---+ + +---------+ +------+---+---+ | prochlorperazine (COMPAZINE) | New Bag | 06/17/20 | 5 mg | | | | injection 5 mg 5 mg, | | 15 5:02 | | | | | intravenous, EVERY 6 HOURS, First | | AM PST | | | | | dose (after last modification) | | | | | | | on 06/13/15 at 1600, Until | | | | | | | Discontinued | | | | | | + +---------+ +------+---+---+ +---------+ +------+---+---+ | | 06/16/20 | 5 mg | | | | | 15 9:06 | | | | | | PM PST | | | | +---------+ +------+---+---+ | New | 06/16/20 | 5 mg | | | | | 15 4:37 | | | | | | PM PST | | | | +---------+ +------+---+---+ +---+---+ | | | +---+---+ + +---------+ +------+---+---+ | prochlorperazine (COMPAZINE) | New Bag | 05/28/20 | 5 mg | | | | injection 5-10 mg 5-10 mg, | | 15 6:31 | | | | | intravenous, EVERY 4 HOURS | | AM PST | | | | | NEEDED, Starting [facility] 05/27/15 at | | | | | | | 1749, Until 05/28/15 at 1209, | | | | | | | nausea/vomiting | | | | | | + +---------+ +------+---+---+ +---+---+ | | | +---+---+ + +-------+ +------+---+---+ | prochlorperazine (COMPAZINE) | Given | 05/28/20 | 5 mg | | | | tablet 5-10 mg 5-10 mg, oral, | | 15 4:56 | | | | | EVERY 4 HOURS NEEDED, Starting | | AM PST | | | | | [facility] 05/27/15 at 1749, Until Fri | | | | | | | 05/28/15 at 1209, nausea/vomiting | | | | | | + +-------+ +------+---+---+ +---+---+ | | | +---+---+ + +-------+ +-------+---+---+ | prochlorperazine (COMPAZINE) | Given | 06/04/20 | 10 mg | | | | tablet 5-10 mg 5-10 mg, oral, | | 15 11:41 | | | | | EVERY 6 HOURS, First dose on Fri | | AM PST | | | | | 05/28/15 at 1145, Until | | | | | | | Discontinued | | | | | | + +-------+ +-------+---+---+ +-------+ +-------+---+---+ | Given | 06/04/20 | 10 mg | | | | | 15 5:33 | | | | | | AM PST | | | | +-------+ +-------+---+---+ | Given | 06/03/20 | 10 mg | | | | | 15 11:32 | | | | | | PM PST | | | | +-------+ +-------+---+---+ +---+---+ | | | +---+---+ + + + +---------+---+---+ | scopolamine (TRANSDERM-SCOPE) | Applied | 06/02/20 | 1 patch | | | | 1.5 mg (1 mg over 3 days) 1 patch | Patch | 15 9:15 | | | | | 1 patch, transdermal, EVERY 72 | | PM PST | | | | | HOURS, First dose on Sun06/02/15 | | | | | | | at 2230, Until Discontinued | | | | | | + + + +---------+---+---+ +---+---+ | | | +---+---+ + +-------+ + +---+---+ | senna (SENOKOT) tablet 1 tablet | Given | 06/07/20 | 1 tablet | | | | 1 tablet, oral, TWICE DAILY | | 15 10:06 | | | | | NEEDED, Starting 06/05/15 at | | PM PST | | | | | 2010, Until Sun06/11/15 at 0834, | | | | | | | constipation | | | | | | + +-------+ + +---+---+ +-------+ + +---+---+ | Given | 06/07/20 | 1 tablet | | | | | 15 8:53 | | | | | | AM PST | | | | +-------+ + +---+---+ | Given | 06/05/20 | 1 tablet | | | | | 15 8:24 | | | | | | PM PST | | | | +-------+ + +---+---+ +---+---+ | | | +---+---+ + +-------+ + +---+---+ | senna-docusate (SENOKOT S) | Given | 06/08/20 | 1 tablet | | | | 8.6-50 mg 1 tablet 1 tablet, | | 15 8:45 | | | | | oral, TWICE DAILY, First dose on | | PM PST | | | | | 06/08/15 at 0145, Until | | | | | | | Discontinued | | | | | | + +-------+ + +---+---+ +-------+ + +---+---+ | Given | 06/08/20 | 1 tablet | | | | | 15 7:05 | | | | | | AM PST | | | | +-------+ + +---+---+ +---+---+ | | | +---+---+ + +-------+ + +---+---+ | senna-docusate (SENOKOT S) | Given | 07/03/20 | 1 tablet | | | | 8.6-50 mg 1-2 tablet 1-2 tablet, | | 15 12:57 | | | | | oral, TWICE DAILY NEEDED, | | PM PST | | | | | Starting Sun06/11/15 at 0830, | | | | | | | Until Sun07/08/15 at 2307, | | | | | | | constipation | | | | | | + +-------+ + +---+---+ +---+---+ | | | +---+---+ + +-------+ + +---+---+ | sodium chloride (OCEAN) 0.65 % | Given | 06/29/20 | 2 sprays | | | | nasal spray 2 spray 2 spray, | | 15 11:02 | | | | | both nostrils, NEEDED, | | PM PST | | | | | Starting Sun06/29/15 at 1950, | | | | | | | Until Sun07/08/15 at 2307, dry | | | | | | | nose | | | | | | + +-------+ + +---+---+ +---+---+ | | | +---+---+ + +---------+ +---------+---+---+ | sodium phosphate IV 30 mmol 30 | New Bag | 06/13/20 | 30 mmol | | | | mmol, intravenous, NEEDED, | | 15 6:28 | | | | | Starting 05/26/15 at 2232, | | AM PST | | | | | Until [facility] 07/08/15 at 2307, | | | | | | | phosphate level 1.6-2 mg/dL | | | | | | + +---------+ +---------+---+---+ +---------+ +---------+---+---+ | New Bag | 06/12/20 | 30 mmol | | | | | 15 3:10 | | | | | | AM PST | | | | +---------+ +---------+---+---+ +---+---+ | | | +---+---+ + +-------+ +-------+---+---+ | traZODone (DESYREL) dose 25 mg | Given | 06/10/20 | 25 mg | | | | 25 mg, oral, AT BEDTIME | | 15 8:56 | | | | | NEEDED, Starting 06/02/15 at | | PM PST | | | | | 0027, Until Sun06/11/15 at 0821, | | | | | | | insomnia | | | | | | + +-------+ +-------+---+---+ +-------+ +-------+---+---+ | Given | 06/09/20 | 25 mg | | | | | 15 8:29 | | | | | | PM PST | | | | +-------+ +-------+---+---+ | Given | 06/08/20 | 25 mg | | | | | 15 11:46 | | | | | | PM PST | | | | +-------+ +-------+---+---+ +---+---+ | | | +---+---+ + +-------+ +-------+---+---+ | traZODone (DESYREL) dose 25 mg | Given | 06/22/20 | 25 mg | | | | 25 mg, oral, AT BEDTIME, First | | 15 8:50 | | | | | dose (after last modification) on | | PM PST | | | | | 06/11/15 at 2200, Until | | | | | | | Discontinued | | | | | | + +-------+ +-------+---+---+ +-------+ +-------+---+---+ | Given | 06/21/20 | 25 mg | | | | | 15 9:06 | | | | | | PM PST | | | | +-------+ +-------+---+---+ | Given | 06/20/20 | 25 mg | | | | | 15 8:15 | | | | | | PM PST | | | | +-------+ +-------+---+---+ +---+---+ | | | +---+---+ + +---------+ + +---+---+ | vancomycin (VANCOCIN) IV 1,250 | New Bag | 06/09/20 | 1,250 mg | | | | mg 1,250 mg, intravenous, EVERY | | 15 4:37 | | | | | 8 HOURS, First dose on Sun | | AM PST | | | | | 06/08/15 at 1200, Until | | | | | | | Discontinued | | | | | | + +---------+ + +---+---+ +---------+ + +---+---+ | New Bag | 06/08/20 | 1,250 mg | | | | | 15 8:45 | | | | | | PM PST | | | | +---------+ + +---+---+ | New Bag | 06/08/20 | 1,250 mg | | | | | 15 12:03 | | | | | | PM PST | | | | +---------+ + +---+---+ +---+---+ | | | +---+---+ + +---------+ + +---+---+ | vancomycin (VANCOCIN) IV 1,250 | New Bag | 06/12/20 | 1,250 mg | | | | mg 1,250 mg, intravenous, EVERY | | 15 3:14 | | | | | 8 HOURS, First dose on Sun | | AM PST | | | | | 06/09/15 at 1200, Until | | | | | | | Discontinued | | | | | | + +---------+ + +---+---+ +---------+ + +---+---+ | New Bag | 06/11/20 | 1,250 mg | | | | | 15 8:06 | | | | | | PM PST | | | | +---------+ + +---+---+ | New Bag | 06/11/20 | 1,250 mg | | | | | 15 11:30 | | | | | | AM PST | | | | +---------+ + +---+---+ +---+---+ | | | +---+---+ + +---------+ + +---+---+ | vancomycin (VANCOCIN) IV 1,250 | New Bag | 06/18/20 | 1,250 mg | | | | mg 1,250 mg, intravenous, EVERY | | 15 9:34 | | | | | 8 HOURS, First dose on Lupe | | AM PST | | | | | 06/17/15 at 1700, Until | | | | | | | Discontinued | | | | | | + +---------+ + +---+---+ +---------+ + +---+---+ | New Bag | 06/17/20 | 1,250 mg | | | | | 15 6:00 | | | | | | PM PST | | | | +---------+ + +---+---+ | New Bag | 06/17/20 | 1,250 mg | | | | | 15 12:00 | | | | | | AM PST | | | | +---------+ + +---+---+ +---+---+ | | | +---+---+ documented in this encounter
--- OUTSIDE RECORDS SUMMARY | ~2019-05-17 | XMS | Encounter Summary ---
Demographics + + + | Address | [address] | | | [place] [address] | + + + | Home Phone [...] Team Providers + +------+ + | Care Railroad Passenger Agent Name | Role | Phone | [...] | | | | | | | [address] | | | | | | | [address] | | | | | | | [place], | | | | | | | [place] | | | | | | | [address] | | | | | | | Phone: | | | | | | | [phone] | | | | | | | Fax: | | | | | | | [phone] | +--------+--------+ + + + + Encounter Details +--------+---------+ + + + | Date | Type | Department | Care Team | Description | +--------+---------+ + + + | 12/06/ | Office | Center for | Yari Garcia MD | Acute myeloid | | 2016 | Visit | Hematologic | [address] [facility] | leukemia (AML), M4 | | | | Malignancies at | [address] | (HCC)- primary | | | | [facility] | [place], [place] | induction failure | | | | [address] | [address] | (Primary Dx); | | | | [address] Mailcode: | [phone] | Immunocompromised | | | | [id number] | | state associated | | | | [facility], | | with stem cell | | | | [place] [address] | | transplant (HCC); | | | | [phone] | | CMV (cytomegalovirus | | | | | | infection) status | | | | | | unknown (HCC) | +--------+---------+ + + + Social [...] + + + | Blood Pressure | 128/90 | 12/07/2015 11:51 AM | | | | | PDT | | + + + + + | Pulse | 64 | 12/07/2015 11:51 AM | | | | | PDT | | + + + + + | Temperature | 36.7 C (98.1 F) | 12/07/2015 11:51 AM | | | | | PDT | | + + + + + | Respiratory Rate | 18 | 12/07/2015 11:51 AM | | | | | PDT | | + + + + + | Oxygen Saturation | 100% | 12/07/2015 11:51 AM | | | | | PDT | | + + + + + | Inhaled Oxygen | - | - | | | Concentration | | | | + + + + + | Weight | 85.4 kg (188 lb 4.4 | 12/07/2015 11:51 AM | | | | oz) | PDT | | + + + + + | Height | - | - | | + + + + + | Body Mass Index | 24.34 | 08/18/2015 4:35 PM | | | | | PST | | + + + + + documented in this encounter Patient Instructions Patient Instructions Norma Noel RN - 12/07/2015 1:16 PM PDTGood to see you and glad thin gs are going well. We will plan for you to get your next cycle of Vidaza the week of December 08 0. Medicine changes: You can decrease your Valcyte dosing to once daily. We will contact you if it needs to go back up to twice a day, depending on the CMV result from today. We will request twice/week Visits to continue on Mondays and . 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 CM with a [...] his L ankle. He was evaluated at [facility] ED on 06/[address] angiogram negative [...] acute myelomonocytic leukemia. He was referred to [facility] for further evaluation and man agement of his newly dx'd AML. Pt was admitted to [facility] on 05/26/15. Peripheral blood was sent [...] CD34, variable CD56, variable CD117, and dim [id number]-mlgza mickey; promonocyte immunophenotype (70% by flow): CD11b, [...] durin g taper. He is currently day +103 s/p transplant, day9 of cycle #2 of azacitidine and returns to [facility] today for scheduled follow-up. Interim History: Khurram returns to clinic today and is feeling well. "I'm awesome." Has had minimal nausea, though not interfering with eating and bowels are solid/formed/1-2x jean ly. Has been using oral rinse with improvement in oral symptoms of dysgusia. No bleeding/bruising, enjoying time with family, staying active. No fevers/chills. Energy /strength continue to improve. Review of Systems Constitutional: Negative for fever, chills, weight loss, malaise/fatigue and diaphoresis. Eyes: Negative for blurred vision. Respiratory: Negative for cough and shortness of breath. Cardiovascular: Negative for chest pain and leg swelling. Gastrointestinal: Negative for heartburn, nausea, vomiting, abdominal pain, diarrhea and co nstipation. Genitourinary: Negative for dysuria. Musculoskeletal: Negative for [...] for dresssing change per pt. Filed Vitals: 12/07/2015 11:51 AM Weight: 85.4 kg (188 lb 4.4 oz) BP: 128/90 Pulse: 64 Temp: 36.7 C (98.1 F) TempSrc: Oral Resp: 18 SpO2: 100% PainSc: 02 - Mild PainLoc: Hip BMI: 24.34 kg/(m^2) Physical Exam Constitutional: He is well-developed, [...] Skin is warm and dry. Rash noted. Faint patchy fading rash on forearms. Psychiatric: Mood and affect normal. Vitals reviewed. CVC: Trifusion intact to R ant chest wall without erythema, induration Clinical Piece Dyer on 12/07/2015 Component Date Value WBC POC 12/07/2015 7.0 RBC POC 12/07/2015 3.52* HGB POC 12/07/2015 12.6* HCT POC 12/07/2015 36.0* MCV POC 12/07/2015 102.3* MCH POC 12/07/2015 35.8* MCHC POC 12/07/2015 35.0 RDW SD, POC 12/07/2015 55.2* PLT POC 12/07/2015 36* MPV POC 12/07/2015 8.2* NEUTROPHIL% POC 12/07/2015 71.3* LYMPH% POC 12/07/2015 21.1 MONO %, POC 12/07/2015 6.6 EOS %, POC 12/07/2015 0.9* BASO %, POC 12/07/2015 0.1 NEUTROPHIL# POC 12/07/2015 5.0 LYMPH# POC 12/07/2015 1.5 MONO #, POC 12/07/2015 0.5 EOS #, POC 12/07/2015 0.1 BASO #, POC 12/07/2015 0.0 CBC COMMENT, POC 12/07/2015 imm gran, lft shift SODIUM, POC 12/07/2015 142 POTASSIUM, POC 12/07/2015 4.4 TOTAL CO2, POC 12/07/2015 29 CHLORIDE, POC 12/07/2015 104 GLUCOSE, POC 12/07/2015 94 CALCIUM TOTAL, POC 12/07/2015 9.8 BUN, POC 12/07/2015 16 CREATININE, POC 12/07/2015 0.8 LDH, POC 12/07/2015 235* MAGNESIUM, POC 12/07/2015 1.9 TACROLIMUS (FK 506) 12/07/2015 7.5 ALBUMIN, PLASMA (LAB) 12/07/2015 3.8 BILIRUBIN TOTAL 12/07/2015 0.2* BILIRUBIN DIRECT 12/07/2015 <0.1 ALK PHOS 12/07/2015 55 AST(SGOT) 12/07/2015 43* ALT (SGPT) 12/07/2015 118* TOTAL PROTEIN, PLASMA (L* 12/07/2015 6.8 AST CMNT 12/07/2015 No Hemo BILI T CMNT 12/07/2015 No Hemo BILI D CMNT 12/07/2015 No Hemo CMV DNA QUANTITATION BY * 12/07/2015 Undetected Assessment/Plan: 1. Hematology: Khurram Kelly is currently day +103 s/p tBuCy-conditioned unrel ated donor PBSC transplant for primary refractory AML. His most recent marrow studies comple edward 11/22/15 showed a hypocellular marrow (patchy 15%) with trilineage hematopoiesis and no m orphologic and immunologic evidence of acute leukemia. VNTR showed no detectable host cells. Cytogenetics and Genetrails pending. He began maintenance azacitidine on 11/01/15, currently c2, day 9. Peripheral blood counts fluctuating - overall low with combination of azacytidin e and valgancyclovir; no blood products are required today. 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 --> decrease valganciclovir to 900 mg po daily x 2 weeks prior to changing back to acyclovi r prophylaxis --> due to CMV reactivation prior to day +100, monitor PCRs weekly through day +180, then q oweek through day +270 --> IgG levels qoweek through day +100 with IVIG 200 mg/kg IV for IgG < 300 --> hold post-transplant vaccines until azacitidine maintenance completed 4. Fluid, Electrolyte and Nutrition: Notes taste disturbance associated with azacitidine th erapy, does not care for the taste of sweet foods. Continues to eat well with adequate po fl uid intake. Denies c/o N/V/D. His electrolytes are reviewed and are within acceptable limits . --> general diet --> maintain hydration --> continue to increase [...] current meds 7. Follow up --> RTC for twice weekly labs, once weekly provider visits Yari Garcia MD, MS Exchange Mechanicnurse practitioner hospitalist [facility] [address] [place] [id number] documented in this enc ounter Plan of [...] Rd | | | | | | [place], [place] | | | | | | [address] | | | | | | [phone] | | | | | | | [...] disease | + + documented in this encounter
--- OUTSIDE RECORDS SUMMARY | ~2019-05-17 | XMS | Encounter Summary ---
Demographics + + + | Address | [address] | | | [place] [address] | + + + | Home Phone [...] Team Providers + +------+ + | Care Photographer Portrait Name | Role | Phone | + [...] Description | +--------+---------+ + + + | 07/26/ | Office | Center for | Aspen Cummins FNP | S/P allogeneic bone | | 2017 | Visit | Hematologic | [address] [facility] | marrow transplant | | | | Malignancies at | [place] [address] | (HCC) (Primary Dx) | | | | [facility] | [facility] [place] | | | | | [address] [place] | [address] | | | | | [address] Mailcode: | [phone] | | | | | [facility] | | | | | | [facility] [place], | | | | | | [place] [address] | | | | | | [phone] | | | +--------+---------+ + + + [...] + + + | Blood Pressure | 123/73 | 07/26/2016 9:22 AM | | | | | PST | | + + + + + | Pulse | 77 | 07/26/2016 9:22 AM | | | | | PST | | + + + + + | Temperature | 37.1 C (98.8 F) | 07/26/2016 9:22 AM | | | | | PST | | + + + + + | Respiratory Rate | 16 | 07/26/2016 9:22 AM | | | | | PST | | + + + + + | Oxygen Saturation | 95% | 07/26/2016 9:22 AM | | | | | PST | | + + + + + | Inhaled Oxygen | - | - | | | Concentration | | | | + + + + + | Weight | 92.4 kg (203 lb 11.3 | 07/26/2016 9:22 AM | | | | oz) | PST | | + + + + + | Height | - | - | | + + + + + | Body Mass Index | 25.87 | 01/25/2016 8:24 AM | | | | | PDT | | + + + + + documented in this encounter Patient Instructions Patient Instructions Aspen Cummins FNP - 07/26/2016 9:45 AM PST1. Begin oxycontin (a naga g acting oxycodone) 20 mg by mouth twice daily. This should provide you with better pain con trol overall 2. Continue oxycodone 5 to 10 mg by mouth every 6 hours as needed for pain 3. Refill your xanax and decrease to 0.5 mg by mouth three times a day 4. Short walks are ok, use a cane for stability if you need 5. Return to clinic to follow up with me in 3 weeks, sooner as needed. 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 He was evaluated at [facility] ED on 06/[address] angiogram negative [...] acute myelomonocytic leukemia. He was referred to [facility] for further evaluation and man agement of his newly dx'd AML. Pt was admitted to [facility] on 05/26/15. Peripheral blood was sent for [...] CD34, variable CD56, variable CD117, and dim [id number]-undln mickey; promonocyte immunophenotype (70% by flow): CD11b, [...] durin g taper. He is currently day +334 s/p transplant, s/p 6 cycles of azacitidine and returns to clinic today for scheduled follow-up. Interim History: Khurram was most recently evaluated in [facility] by me on 07/13/16. At that time, he reported increased L hip pain. 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 An ortho refe rral was made; scheduled with Lobo Jeffers MD on 08/11/16. MRI completed yesterday showed bi lateral femoral head osteonecrosis with subchondral fracture and collapse of weightbearing L femoral head with suspected early cartilage disease. Pt continues with c/o L hip pain, constant and at times severe. He has been taking oxycodon e 10 mg po TID with some relief, states "it takes the edge off". Difficulty sleeping at nig ht due to pain with position changes. He ran out of zyprexa and xanax about 5 days ago, note s increased N/V since running out but feels his anxiety is well controlled regardless. Stopp ed taking paroxetine about 2 weeks ago, felt he didn't need it anymore. Depression is romel r overall, states he hasn't had any "negative thoughts". concurs. Notes he is down a l ittle bit because of his physical issues but feels he's coping well. Appetite has decreased a bit since running out of xanax but still eating 1-2 meals a day wi th a abdullahiie in the morning. Intermittent nausea persists, relieved with prn zofran. Inte rmittent vomiting, usually from gagging after brushing his teeth. No c/o diarrhea, oral sen sitivity, ocular irritation or skin rash. Review of Systems Constitutional: Negative for chills, fever and malaise/fatigue. HENT: Negative for headaches, congestion and sore throat. Respiratory: Negative for cough and shortness of breath. Cardiovascular: Positive for leg swelling (mild, intermittent). Negative for chest pain. Gastrointestinal: Positive for nausea and vomiting. Negative for abdominal pain and diarrhe a. Genitourinary: Negative for dysuria. Musculoskeletal: Positive for joint pain (L hip, intermittent R hip). Negative for myalgias . Skin: Negative for rash. Neurological: Negative for [...] 1 capsule by mouth before babak akfast. oxyCODONE CR 20 mg oral tablet,oral only,ext.rel.12 [...] for dresssing change per pt. Filed Vitals: 07/26/2016 9:22 AM Weight: 92.4 kg (203 lb 11.3 oz) BP: 123/73 Pulse: 77 Temp: 37.1 C (98.8 F) TempSrc: Oral Resp: 16 SpO2: 95% PainSc: 07 - Severe to Very Severe PainLoc: Hip (Left) BMI: 25.87 kg/(m^2) Physical Exam Constitutional: He is well-developed, [...] is no tenderness . Musculoskeletal: He exhibits edema (trace pretibial edema). Neurological: He is alert. Skin: Skin is warm and dry. No rash noted. Psychiatric: Mood and affect normal. Vitals reviewed. Lab Results Component Value Date WBC 8.7 07/26/2016 HB 14.3 07/26/2016 HCT 41.9 07/26/2016 PLT 246 07/26/2016 MCV 95.2 07/26/2016 RDW 44.9 05/01/2016 Lab Results Component Value Date BICARB 24 07/26/2016 TBILI 0.5 07/26/2016 CA 9.4 07/26/2016 CL 100 07/26/2016 CR 1.0 07/26/2016 GLU 103 (H) 07/26/2016 AP 118 07/26/2016 TP 7.2 07/26/2016 BUN 11 07/26/2016 ALB 3.8 07/26/2016 AST 67 (H) 07/26/2016 NA 133 (L) 07/26/2016 K 4.0 07/26/2016 ALT 80 (H) 07/26/2016 Assessment/Plan: 1. Hematology: Khurram Gambleliat is currently day +334 s/p tBuCy-conditioned unrel ated donor PBSC transplant for primary refractory AML, s/p 6 cycles of azacitidine for post- transplant relapse. CBC WNL; continues without evidence of disease by peripheral smear. His most recent marrow studies completed 04/19/16 showed a patchy hypocellular (less than 5% to 50%) bone marrow with trilineage hematopoiesis and < 3% myeloid blasts. Karyotype 46,XY[20]. VNTR showed no detectable host cells. 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 --> continue CBC q2-4 weeks --> anticipate repeat marrow studies in conjunction with his one year anniversary, sooner p rn 2. 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 Prednisone was increased back [...] as of 07/13/16. Continues low dose tacrolimus. Notes mild nausea, likely related to recent wi thdraw from xanax however cannot exclude low level GvHD. He has no other s/s active GvHD no edward at this time. --> continue tacrolimus 0.5 mg bid at this time --> restart xanax as below --> if N/V resolved next visit, begin tacrolimus taper 3. Infectious Disease: Afebrile without localizing [...] anniversary 4. Fluid, Electrolyte and Nutrition: Appetite has decreased since d/c of xanax, still feels he's eating well enough but weight decreasing. Low level nausea persists with intermittent gagging and vomiting [brushing teeth is a trigger]. Feels his po fluid intake is adequate. H is electrolytes are reviewed and are within acceptable limits. --> continue a well balanced diet --> encouraged pt to eat several snacks throughout the day to maintain weight --> maintain hydration 5. Cardiovascular: Pretransplant TTE completed 08/10/15 showed a LVEF of 55-60%. CNI-induced HTN, well controlled with current meds. --> continue amlodipine as prescribed 6. Psychosocial: Hx of anxiety, previously well controlled with xanax TID. Noted increase i n anxiety or decreased effectiveness of xanax. Changed to clonazepam 0.5 mg po BID with kath kthrough dosing prn however felt xanax worked better for him overall. Changed back to xanax with improvement. Initially professed interest in a peer support group or support at [facility], then felt this was no longer necessary. In 05/24, he noted an increase in his anxiety, increased xanax to ~4 mg po daily, then ran out of medication and suffered withdrawal sympt oms. Paxil added 06/12/16, initially felt it helped but recently self d/c'dl; states he doesn 't feel he needs it anymore. Ran out of xanax ~5 days ago, has been off this mediation sinc e with symptoms of withdrawal, however feels his anxiety is well controlled. --> restart xanax 0.5 mg po TID --> ok to hold paroxetine at this time --> peer support person identified by Sondra Richey LCSW; he will connect with Khurram by email --> encouraged pt to contact [facility] to schedule evaluation and ongoing support 7. Musculoskeletal: Hx of intermittent L [...] head with suspected early c artilage disease. --> Ortho consult scheduled with Lobo Jeffers MD on 08/11/16 8. Follow up --> RTC to f/u with me in 3 weeks, sooner prn ORLY Yanes [facility] [address] Mailcode: [id number] [id number] documented in this enc ounter Plan of [...] Rd | | | | | | [place], [place] | | | | | | [address] | | | | | | [phone] | | | | | | | | +--------+---------+ + + + documented as of this encounter Visit Diagnoses + + | Diagnosis | + + | 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HCC) - Primary Bone marrow replaced by | | transplant | + + documented in this encounter
--- OUTSIDE RECORDS SUMMARY | ~2019-05-17 | XMS | Encounter Summary ---
Demographics + + + | Address | [address] | | | [place] [address] | + + + | Home Phone [...] Providers + +------+ + | Care Balloon Dipper Name | Role | Phone | + [...] | +--------+ + + + + | 10/04/ | Telephone | Center for | Em Saunders, | Medication | | 2016 | | Hematologic | PA-C [address] [facility] [address] | management (No | | | | Malignancies at [facility] | [address] | change to TAC dose) | | | | [address] | [place], [place] | | | | | [address] Mailcode: | [phone] | | | | | [facility] [address] | [phone] | | | | | [place], | | | | | | [place] [address] | | | | | | [phone] | | | +--------+ + + + [...] | Visit | Malignancy | [address] [facility] | | | | | | [address] | | | | | | [place] | | | | | | [address] | | | | | | [phone] | | | | | | | | +--------+---------+ + + + documented as of this encounter Visit Diagnoses Not on filedocumented in this encounter"
--- OUTSIDE RECORDS SUMMARY | ~2019-05-17 | XMS | Encounter Summary ---
Demographics + + + | Address | [address] | | | [place] [address] | + + + | Home Phone [...] + +------+ + | Care Pipe And Boiler Covers Supervisor Name | Role | Phone | + +------+ + | Pending Pcp Addition | PCP | Unavailable | + +------+ + Encounter Details +--------+ + + + + | Date | Type | Department | Care Team | Description | +--------+ + + + + | 10/06/ | Documentati | Center for | Work, [...] | | | | | | [place], | | | | | | [place] [address] | | | | | | [phone] | | | +--------+ + + + [...] Rd | | | | | | [place], [place] | | | | | | [address] | | | | | | [phone] | | | | | | | | +--------+---------+ + + + documented as of this encounter Visit Diagnoses Not on filedocumented in this encounter"
--- OUTSIDE RECORDS SUMMARY | ~2019-05-17 | XMS | Encounter Summary ---
Demographics + + + | Address | [address] | | | [place] [address] | + + + | Home Phone [...] Team Providers + +------+ + | Care Retail Pharmacist Name | Role | Phone | [...] | | | | | | [place], | | | | | | [place] [address] | | | | | | [phone] | | | +--------+ + + + [...] Rd | | | | | | [place], [place] | | | | | | [address] | | | | | | [phone] | | | | | | | | +--------+---------+ + + + documented as of this encounter Visit Diagnoses Not on filedocumented in this encounter"
--- OUTSIDE RECORDS SUMMARY | ~2019-05-17 | XMS | Encounter Summary ---
Demographics + + + | Address | [address] | | | [place] [address] | + + + | Home Phone [...] Providers + +------+ + | Care Director Operating Room Name | Role | Phone | [...] | | | | achieved | [facility] [place] | [facility] | | | | | remission | [address] | [facility] | | | | | | Phone: | [facility] | | | | | Procedures | [phone] | [place], [place] | | | | | Post BMT | Fax: | [address] | | | | | Auth to | [phone] | Phone: | | | | | included | | [phone] | | | | | facility, | | Fax: | | | | | diagnostics, | | [phone] | | | | | office | | | | | | | visits and | | | | | | | surgery | | | +--------+---------+ + + + + Encounter Details +--------+---------+ + + + | Date | Type | Department | Care Team | Description | +--------+---------+ + + + | 10/20/ | Office | Center for | Saunders, Em L, | Acute myeloid | | 2016 | Visit | Hematologic | PA-C [address] [facility] | leukemia (AML), M4 | | | | Malignancies at | Jabier Wally [address] | ([facility])- primary | | | | [facility] | [place], [place] | induction failure | | | | [address] [facility] | [address] | (Primary Dx); S/P | | | | Wally Burger Mailcode: | [phone] | allogeneic bone | | | | [facility] | | marrow transplant | | | | [facility] [place], | | ([facility]) | | | | [place] [address] | | | | | | [phone] | | | +--------+---------+ + + + [...] + + + | Blood Pressure | 129/86 | 10/21/2015 10:35 AM | | | | | PDT | | + + + + + | Pulse | 89 | 10/21/2015 10:35 AM | | | | | PDT | | + + + + + | Temperature | 36.7 C (98.1 F) | 10/21/2015 10:35 AM | | | | | PDT | | + + + + + | Respiratory Rate | 18 | 10/21/2015 10:35 AM | | | | | PDT | | + + + + + | Oxygen Saturation | 100% | 10/21/2015 10:35 AM | | | | | PDT | | + + + + + | Inhaled Oxygen | - | - | | | Concentration | | | | + + + + + | Weight | 78.4 kg (172 lb 13.5 | 10/21/2015 10:35 AM | | | | oz) | PDT | | + + + + + | Height | - | - | | + + + + + | Body Mass Index | 22.34 | 08/18/2015 4:35 PM | | | | | PST | | + + + + + documented in this encounter Patient Instructions Patient Instructions Em Saunders PA-C - 10/21/2015 8:59 AM PDT-Take your temperature regularly (3-4 x daily) and to call immediately for a temperature of 100.4 or greater. -We'll call you to adjust your Tacrolimus if necessary. -Decrease prednisone down to 15 mg once daily. -Restart taking Beclomethasone and Budesonide as prescribed. -Continue to use the Triamcinolone 0.1% cream to your rash twice daily. -A refill for the oxycodone has been sent to [facility] pharmacy in [facility]. documented in this encounter Progress Notes Em Saunders PA-C - 10/21/2015 9:00 AM PDTFormatting of this note might be different f rom the original. 10/21/2015 [facility] Physician: Yari Garcia MD Local Oncologist: Yari Garcia MD PCP: Pending Pcp ADDITION Hematologic Malignancy: Primary refractory AML Conditioning regimen: tBuCy Date of transplant: 08/27/2015 (two day 0s) Donor: MM URD (DPB1 permissive antigen mismatch, male, [id number]) Hematologic History: Khurram Kelly is a 25 y.o. CM with a PMH of pericarditis who was in his [facility] ntil 03/13/15 (the night of his [...] his L ankle. He was evaluated at [facility] ED on 06/[address] angiogram negative [...] leukemia. He was referred to [facility] for further evaluation and man agement of his newly dx'd AML. Pt was admitted to [facility] on 05/26/15. Peripheral blood was sent for [...] CD34, variable CD56, variable CD117, and dim [id number] mickey; promonocyte immunophenotype (70% by flow): CD11b, [...] infection. He was d/c'd to home on 12/31/15. Due to disease persistence, he then underwent [...] of primary refractory AML, currently d ay +55, s/p tBuCy conditioned MM URD SCT. Interval History: presents to clinic today for his routine scheduled visit. He is accompanied by his who is his caregiver in clinic today. He is doing about the same as last visit rubia pina. He has ongoing bilateral knee pain that is a little better today. He felt the pain fir st come on with more intense activity hiking up hills. He has stopped that activity and is n ow walking flat surfaces. The pain is relieved with oxycodone. It is hard for him to reprodu ce the pain, but if feels like it is over his bilateral lateral knees. His rash is stable fr om last visit, he has not noticed it go to any new areas. He started having some mild nausea again when he changed the Zofran to PRN. He has the low level of GI discomfort return over the last couple days. He has been avoiding dairy. He denies diarrhea or constipation. He is having 1-2 BMs that are formed daily. His appetite is still great and he is eating a lot. He states he doesn't stop eating and he always seems to be hungry. He is taking in 2 liters of fluids daily. No fevers. Review of Systems: General: Denies fevers, chills, weight loss or sweats. ENT: Denies changes in vision or double vision. Denies hearing loss, nosebleeds, nasal vinny estion, difficulty swallowing, hoarseness or sore throat. Respiratory: Denies shortness of breath, coughing up blood, excessive sputum, cough, chest discomfort or wheezing. Musculoskeletal: +bilateral knee pain (2/10 pain scale) suspect from activity No swelling, stiffness, back pain, arthritis, muscle aches or muscle cramps. Cardiovascular: No chest pain,lightheadedness,shortness of breath. Gastrointestinal: +nausea Denies indigestion, vomiting, diarrhea, constipation, bloody stoo ls or dark tarry stools. Skin: +rash -stable Psychological: No abnormal anxiety, depression. Remainder of [...] d aily. PREDNISONE 10 MG TABLET Take 15 mg (one and a half tablets) by mouth once daily. PROCHLORPERAZINE MALEATE [...] e 1 mg capsule) in the evening. [place] 0.5 mg capsules for future use. TACROLIMUS 1 MG CAPSULE Take 1 mg (one 1 mg capsule) by mouth in the morning and 1 mg (one 1 mg capsule) in the evening. [place] 0.5 mg capsules for future use. TRIAMCINOLONE ACETONIDE 0.1 % TOPICAL CREAM Apply to affected area three times daily. Apply thin film to affected areas. SULFAMETHOXAZOLE 800 MG-TRIMETHOPRIM 160 MG TABLET Take 1 tablet by mouth twice daily (ever y Sunday and ). Vitals: BP 129/86 | Pulse 89 | Temp (Src) 36.7 C (98.1 F) (Oral) | RR 18 | Wt 78.4 kg (172 lb 1 [...] over bi lateral forearms. Rash ~25% BSA - stable from last visit Chest: [...] 72 hours (or 3 results) Recent Labs 10/21/15 1040 WBC 7.0 HB 11.6* HCT 34.6* PLT 115* MONOPERC 6.3 BASOPERC 0.4 EOSPERC 4.0* Chemistries: Last 72 Hours (or 3 results): Recent Labs 09/10/15 2300 09/11/15 2313 09/12/15 2326 10/14/15 1052 10/14/15 1103 10/18/15 1015 10/18/15 1033 10/21/15 1035 10/21/15 1058 NA 144 143 142 < > -- 137 -- 141 -- 142 K 3.7 3.9 3.9 < > -- 4.3 -- 4.2 -- 4.1 CL 113* 109* 109* < > -- 102 -- 103 -- 104 BICARB 21 25 25 < > -- 28 -- 27 -- 26 BUN 22* 19 18 < > -- 16 -- 16 -- 18 CR 0.91 0.94 0.96 < > -- 0.6* -- 0.8 -- 0.8 GLU 90 95 121* < > -- 125* -- 90 -- 118* CA 8.1* 8.0* 8.3* < > -- 9.3 -- 9.4 -- 9.4 AST 18 22 19 < > 40 -- 33 -- 133* -- ALT 28 31 35 < > 132* -- 108* -- 277* -- AP 63 83 96 < > 57 -- 63 -- 81 -- TBILI 0.5 0.5 0.4 < > 0.2* -- 0.3 -- 0.3 -- TP 5.8* 6.1* 6.1* < > 6.4 -- 6.5 -- 6.6 -- ALB 2.7* 2.9* 3.0* < > 3.6 -- 3.7 -- 3.8 -- ANIONGAP 10 9 8 [...] 5.96 x 10^6 per kg -BMT Day: +55 Pertinent Diagnostics: -Around day + 30 repeat [...] eruption of lymphocyte recovery and early mild mxyim-tvyobw-rldw disease. On 09/13, rash in volved ~15% [...] scattered over bilate ral forearms. Rash ~25% BSA -Triamcinolone cream 0.1% [...] since his AM L diagnosis. -oxycodone PRN Infectious Disease: No acute issues. Afebrile and no evidence of acute infection at this time. The patient i s reminded to take his temperature regularly (3-4 x daily) and to call immediately for a tem perature of 100.4 or greater. Antiviral: Acyclovir for antiviral prophylaxis. The CMV will be followed weekly for val ctivation by PCR. Lab Results Component Value Date CMVQUANTPCR Weak Positive* 10/18/2015 CMVQUANTPCR Undetected 10/11/2015 CMVQUANTPCR Undetected 10/04/2015 CMVQUANTPCR Undetected 09/27/2015 Antifungal: Posaconazole as of 09/15/15 with HD steroids for antifungal prophylaxis and we wi ll follow weekly Galactomannan assays. Lab Results Component Value Date GALACTO Negative 10/18/2015 PCP proph: Pentamidine IV for PCP prophlaxis given on 09/12/15. Bactrim for PCP coverage star edward 10/11/15. IgG: IgG level will be followed every other week and replaced prn if it falls below 300 . Lab Results Component Value Date IGG 471* 10/18/2015 Toxo: Pt is toxo negative 08/09/2015, no [...] trough is available. -Taper prednisone down to 15 mg once daily as of today 10/20. Next taper planned 10/28/15 if rash is stable/continues to improve. -Continue with Triamcinolone 0.1% cream BID. If rash progresses patient is reminded to call the clinic. -Restarted B&B today. Even with avoiding dairy in his diet the low level of nausea and GI u pset has returned. 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 -Sent refill for oxycodone to [facility] pharmacy. -Return to clinic 10/25/15 to see josé antonio Holder. Em Saunders PA-C [facility] [address] [facility] Mailcode: [id number] [address] documented in this encounter Plan [...] Center | | | | | | [facility] | | | | | | [place], [place] | | | | | | [address] | | | | | | [phone] | | | | | | | | +--------+---------+ + + + documented as of this encounter Results BMP + MAG, POC CHM (10/25/2015 11:39 AM PDT) + +---------+ + + + [...] +---------+ + + + | GLUCOSE, | 120 (H) | 60 - 99 mg/dL | [...] + + + | LDH, POC | 188 | 0 - 206 U/L | [facility] [...] [facility] | [address] | [place], [place] | | | EM[facility] POINT OF CARE | [address] | [address] | | | TESTS | | | | + + + + + CBC+PHIL GRIJALVA (10/25/2015 11:38 AM PDT) + + + + + [...] + + + | HCT POC | 33.3 (L) | 41.0 - 53.0 % | [...] + + + | MCH POC | 33.0 (H) | 28.5 - 32.3 pg | [...] + + | RDW SD, POC | 61.0 (H) | 35.1 - 46.3 fL | [facility] - | | | | | | [place] | | | | | | [facility] POINT | | | | | | OF CARE | | | | | | TESTS | | + + + + + + | PLT POC | 103 (L) | 150 - 400 | [facility] [...] + + + | LYMPH% POC | 23.6 | 18 - 42 % | [facility] [...] YESSICA SORTO | [address] | [place], [place] | | | [facility] POINT OF CARE | [address] | [address] | | | TESTS | | | | + + + + + CMV PCR QUANTITATION, PLASMA (10/25/2015 11:22 AM PDT) + + + + + + | Component | Value | Ref Range | Performed | Pathologist | | | | | At | Signature | + + + + + + | CMV DNA | 1,300 (H) | None IU/mL | [facility] | [...] may not reflect true | [facility] | | biological changes and must be [...] | | | characteristics determined by the [facility] | | | Molecular Diagnostic Center. It has not been cleared or approved by | | | the Food and Drug Administration. FDA approval is not required for | | | clinical use of this test, and therefore validation was done as | | | required under the requirements of the Clinical Laboratory Improvement | | | Act of 1988. The [facility] | | | Diagnostic Center is a fully licensed and/or accredited clinical | | | laboratory under CLIA, CAP, and the [facility]. | | + + + + + + + + | Performing | Address | City/State/Zipcode | Phone Number | | Organization | | | | + + + + + | [facility] | [address] | [place] [address] | | | DIAGNOSTIC | [address] | | | | LABORATORIES | | | | + + + + + ASPERGILLUS GALACTOMANNAN ANTIGEN, SERUM (10/25/2015 11:22 AM PDT) + + + + [...] + + + | ASP GAL | 0.08 | <=0.49 Index | [facility] | | [...] [facility] | [address] | [place] [address] | | | SERVICES, SPECIAL | [address] | | | | IMM + COAG | | | | + + + + + PHOSPHORUS, PLASMA (10/25/2015 11:22 AM PDT) + +-------+ + + + [...] | + + + + + | [facility] | [address] [facility] | [place] [address] | | | SERVICES, CORE | [address] | | | + + + + + LIVER SET (AST,ALT,BILI TOTAL,BILI DIRECT,ALK PHOS,ALB,PROT TOTAL) (10/25/2015 11:22 AM PDT ) + +---------+ + + [...] + + + | ALT (SGPT) | 124 (H) | <=60 U/L | [facility] | [...] [facility] | [address] | [place] [address] | | | SERVICES, CORE | [address] [...]
--- OUTSIDE RECORDS SUMMARY | ~2019-05-17 | XMS | Encounter Summary ---
Demographics + + + | Address | [address] | | | [place] [address] | + + + | Home Phone [...] Team Providers + +------+ + | Care Historiography Teacher Name | Role | Phone | + [...] | | | | | remission | [address] | [facility] | | | | | | Phone: | Pavilion | | | | | Procedures | [phone] | [place], [place] | | | | | Post BMT | Fax: | [address] | | | | | Auth to | [phone] | Phone: | | | | | included | | [phone] | | | | | facility, | | Fax: | | | | | diagnostics, | | [phone] | | | | | office | [...] | | | | | | [facility] | | | | | | [place], | | | | | | [place] [address] | | | | | | [phone] | | | +--------+ + + + [...] walk without difficulty Patient instructed to call implementation lead/education paraprofessional provider for fevers 100.4 F or greater, [...] Rd | | | | | | [place], [place] | | | | | | [address] | | | | | | [phone] | | | | | | | [...] [facility] | [address] | [place], [place] | | | RUTHIE CARTER OF CARE | [address] | [address] | | | TESTS | | | [...] + + + | YESSICA S[facility] | [address] | [place], [place] | | | RUTHIE CARTER OF [facility] | [facility] | [address] | | | TESTS | | | [...] + + + + + | YESSICA [facility] | [address] | [place] [address] | | | INDRA SHARIF | W[place] [...]
--- OUTSIDE RECORDS SUMMARY | ~2019-05-17 | XMS | Encounter Summary ---
Demographics + + + | Address | [address] | | | [place] [address] | + + + | Home Phone [...] Team Providers + +------+ + | Care Meat Curer Name | Role | Phone | + [...] Description | +--------+--------+ + + + | 02/13/ | Refill | Center for | Aspen Cummins FNP | Refill Request | | 2016 | | Hematologic | [address] | | | | | Malignancies at | [address] | | | | | [facility] | [place], [place] | | | | | [address] | [address] | | | | | Debi Burger Mailcode: | [phone] | | | | | [facility] | | | | | | [place], | | | | | | [place] [address] | | | | | | [phone] | | | +--------+--------+ + + + [...] Rd | | | | | | [place] | | | | | | [address] | | | | | | [phone] | | | | | | | | +--------+---------+ + + + documented as of this encounter Visit Diagnoses Not on filedocumented in this encounter"
--- OUTSIDE RECORDS SUMMARY | ~2019-05-17 | XMS | Encounter Summary ---
Demographics + + + | Address | [address] | | | [place] [address] | + + + | Home Phone [...] Providers + +------+ + | Care Steam Table Worker Name | Role | Phone | [...] | | | | | | [place], | | | | | | | [place] | | | | | | | [address] | | | | | | | Phone: | | | | | | | [phone] | | | | | | | Fax: | | | | | | | [phone] | +--------+--------+ + + + + Encounter Details +--------+---------+ + + + | Date | Type | Department | Care Team | Description | +--------+---------+ + + + | 11/07/ | Office | Center for | Aspen Cummins FNP | S/P allogeneic bone | | 2016 | Visit | Hematologic | [address] | marrow transplant | | | | Malignancies at | [address] | (HCC) (Primary Dx) | | | | [facility] | [place], [place] | | | | | [address] | [address] | | | | | Debi Burger Mailcode: | [phone] | | | | | [facility] [place] | | | | | | [place], | | | | | | [place] [address] | | | | | | [phone] | | | +--------+---------+ + + + [...] + + + | Blood Pressure | 116/76 | 11/08/2015 10:05 AM | | | | | PDT | | + + + + + | Pulse | 70 | 11/08/2015 10:05 AM | | | | | PDT | | + + + + + | Temperature | 36.8 C (98.2 F) | 11/08/2015 10:05 AM | | | | | PDT | | + + + + + | Respiratory Rate | 18 | 11/08/2015 10:05 AM | | | | | PDT | | + + + + + | Oxygen Saturation | 99% | 11/08/2015 10:05 AM | | | | | PDT | | + + + + + | Inhaled Oxygen | - | - | | | Concentration | | | | + + + + + | Weight | 83.1 kg (183 lb 3.2 | 11/08/2015 10:05 AM | | | | oz) | PDT | | + + + + + | Height | - | - | | + + + + + | Body Mass Index | 23.68 | 08/18/2015 4:35 PM | | | | | PST | | + + + + + documented in this encounter Patient Instructions Patient Instructions Aspen Cummins FNP - 11/08/2015 10:55 AM PDT1. We will call you this afternoon with any dose adjustment of your tacrolimus 2. No change in your prednisone dosing today 3. Once you've used up your current supply of posaconazole, change back to fluconazole 400 mg by mouth once daily 4. Beware of sun exposure as this can cause xrhbs-uhorgp-klrh disease. Wear a hat, sungla sses, and sunscreen or long sleeves when outside. 5. Continue to apply triamcinolone cream to your rash twice daily 6. Return to clinic for labs on , 11/11/15 7. Return to clinic to follow up with Yari Garcia MD on 11/15/15 or sooner as aster navarrete documented in this encounter Progress Notes Aspen Cummins FNP - 11/08/2015 7:30 AM PDT 11/08/2015 [facility] Primary [facility] MD: Yari Garcia MD Primary Oncologist: Yari Garcia MD Diagnosis: AMML, primary refractory Transplant Date: 08/27/15 Donor: MM URD (DPB1 permissive antigen mismatch, male, [id number]) Identifying Data: Khurram Kelly is a 25 [...] his L ankle. He was evaluated at [facility] ED on 06/[address] angiogram negative [...] CD34, variable CD56, variable CD117, and dim [id number] mickey; promonocyte immunophenotype (70% by flow): CD11b, [...] duri ng taper. He is currently day +73 s/p transplant and presents to clinic today with spreading rash. Interim History: Khurram was most recently evaluated in our [facility] clinic by Yari Garcia MD on 11/03/15. He is feeling well today. Appetite remains good but decreased as his prednisone dose decreases. He continues to eat well, no c/o N/V/D. R emains active, went on a 3 mile walk around [place] over the weekend. Mild muscle discomfo rt, very mild knee pain but markedly improved overall. Rash persists, fading but new lesion s to BLE; concerned they are petechiae. Review of Systems Constitutional: Negative for fever, chills and malaise/fatigue. HENT: Negative for headaches, congestion and sore throat. Respiratory: Negative for cough and shortness of breath. Cardiovascular: Negative for chest pain and leg swelling. Gastrointestinal: Negative for nausea, vomiting, abdominal pain, diarrhea, blood in stool a nd melena. Genitourinary: Negative for dysuria and hematuria. Musculoskeletal: Positive for myalgias (mild post-workout discomfort) and joint pain (bilat knees, markedly improved). Negative for falls. Skin: [...] A pply thin film to affected areas. trimethoprim-sulfamethoxazole (BACTRIM DS) 160-800 mg oral tablet Take 1 tablet by mout h twice daily (every Sunday and ). valGANciclovir 450 mg oral tablet Take 2 tablets by mouth two times daily. No current facility-administered medications for this visit. Facility-Administered Medications Ordered in Other Visits Medication Dose Route Frequency Provider Last Rate Last Dose heparin 10 unit/mL IV flush syringe 50 Units 50 Units Intracatheter PRN Yari Garcia MD 50 Units at 11/08/15 1124 Allergies Allergen Reactions Chlorhexidine Towelette Rash PAVAN cloths - ok to use Chloraprep for dresssing change per pt. Filed Vitals: 11/08/2015 10:05 AM Weight: 83.1 kg (183 lb 3.2 oz) BP: 116/76 Pulse: 70 Temp: 36.8 C (98.2 F) TempSrc: Oral Resp: 18 SpO2: 99% PainSc: 03 - Mild to Moderate PainLoc: Leg (Bilateral) BMI: 23.69 kg/(m^2) Physical Exam Constitutional: He is well-developed, [...] Skin: Skin is warm and dry. Rash (fading, hyperpigmenting rash to trunk, BUE; new faintly e rythematous maculopapular rash to BLE below the knees only (patchy)) noted. Psychiatric: Mood and affect normal. Vitals reviewed. CVC: Trifusion intact to R ant chest wall without erythema, induration Lab Results Component Value Date WBC 5.6 11/08/2015 HB 11.6 11/08/2015 HCT 34.8 11/08/2015 PLT 59 11/08/2015 MCV 102.4 11/08/2015 RDW 57.4 09/30/2015 Lab Results Component Value Date BICARB 27 11/08/2015 TBILI 0.2* 11/08/2015 CA 9.5 11/08/2015 CL 104 11/08/2015 CR 0.8 11/08/2015 GLU 85 11/08/2015 AP 57 11/08/2015 TP 6.8 11/08/2015 BUN 16 11/08/2015 ALB 3.8 11/08/2015 AST 32 11/08/2015 NA 143 11/08/2015 K 4.5 11/08/2015 ALT 129* 11/08/2015 Assessment/Plan: 1. Hematology: Khurram Kelly is currently day +73 s/p tBuCy-conditioned unre lated donor PBSC transplant [...] azacitidine on 11/01/15, currentl y c1, day 8. 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 [...] completed Lab Results Component Value Date CMVQUANTPCR 440* 11/01/2015 CMVQUANTPCR 1300* 10/25/2015 CMVQUANTPCR Weak Positive* 10/18/2015 CMVQUANTPCR Undetected 10/11/2015 4. Fluid, Electrolyte and Nutrition: Appetite remains [...] meds 7. Follow up --> scheduled for labs, supportive care on 11/11/15 --> RTC to f/u with Yari Garcia MD on 11/15/15, sooner prn OR[facility] AT [address] Mailcode: [place] [address] documented in this enc ounter Plan of [...] [place] | | | | | | [address] | | | | | | [phone] | | | | | | | | +--------+---------+ + + + documented as of this encounter Visit Diagnoses + + | Diagnosis | + + | 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
--- OUTSIDE RECORDS SUMMARY | ~2019-05-17 | XMS | Encounter Summary ---
Demographics + + + | Address | [address] | | | [place] [address] | + + + | Home Phone [...] Providers + +------+ + | Care Web Services Developer Name | Role | Phone | [...] Description | +--------+--------+ + + + | 12/05/ | Refill | Center for | Aspen Cummins FNP | Refill Request | | 2018 | | Hematologic | [address] | | | | | Malignancies at | [facility] | | | | | [place] [address] | [place], [place] | | | | | [address] [facility] | [address] | | | | | [facility] Mailcode: | [phone] | | | | | [facility] [place] | | | | | | [facility] [place], | | | | | | [place] [address] | | | | | | [phone] | | | +--------+--------+ + + + [...] 2019 | Visit | Malignancy | [address] | | | | | | [address] | | | | | | [place] | | | | | | [address] | | | | | | [phone] | | | | | | | | +--------+---------+ + + + documented as of this encounter Visit Diagnoses Not on filedocumented in this encounter"
--- OUTSIDE RECORDS SUMMARY | ~2019-05-17 | XMS | Encounter Summary ---
Demographics + + + | Address | [address] | | | [place] [address] | + + + | Home Phone [...] Team Providers + +------+ + | Care Honing Machine Set Up Operator Tool Name | Role | Phone | + [...] | Hematology | Diagnoses | Cook, | [facility] | | | | Malignancy | [...] | | | | | remission | [address] | [place] | | | | | | Phone: | Pavilion | | | | | Procedures | [phone] | [place], [place] | | | | | Post BMT | Fax: | [phone] | | | | | Auth to | [phone] | Phone: | | | | | included | | [phone] | | | | | facility, | | Fax: | | | | | diagnostics, | | [phone] | | | | | office | [...] | | | | | | [place], | | | | | | [place] [address] | | | | | | [phone] | | | +--------+ + + + [...] Rd | | | | | | [place], [place] | | | | | | [address] | | | | | | [phone] | | | | | | | [...] | | | | PDT | ([facility]LY [facility] primary | results section. | | [...] | | | | PDT | ([facility])- primary | results section. | | [...] | | | | PDT | ([facility])- primary | results section. | | [...] | TOTAL,BILI | | PDT | ([facility])- primary | results section. | | DIRECT,ALK [...] | | | | PDT | ([facility])- primary | results section. | | [...] | | | | PDT | ([facility])- primary | results section. | | [...] | | | | PDT | ([facility])- primary | results section. 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 | | | | | | ([facility]) | | + +--------+ + + + | ASPERGILLUS | Urgent | 10/18/2015 | Acute myeloid | Results for this | | GALACTOMANNAN | | 10:15 AM | leukemia (AML), M4 | procedure are in the | | ANTIGEN, SERUM | | PDT | ([facility])- primary | results section. | | [...] | | | | PDT | ([facility])- primary | | | | | | induction failure | | + +--------+ + + + | TREATMENT PARAMETERS | Routin | 10/18/2015 | Acute myeloid | | | #2 - BEACON | e | 10:14 AM | leukemia (AML), M4 | | | | | PDT | ([facility])- primary | | | | | [...] | | | | PDT | ([facility])- primary | | | | | | induction failure | | + +--------+ + + + | TREATMENT PARAMETERS | Routin | 10/18/2015 | Acute myeloid | | | #2 - BEACON | e | 10:14 AM | leukemia (AML), M4 | | | | | PDT | ([facility])- primary | | | | | | induction failure | | + +--------+ + + + | NURSING | Routin | 10/18/2015 | Acute myeloid | | | COMMUNICATION #3 - | e | 10:14 AM | leukemia (AML), M4 | | | BEACON | | PDT | ([facility])- primary | | | | | [...] | | | | PDT | ([facility])- primary | | | | | [...] MACARIO | [address] | [place], [place] | | | RUTHIE CARTER OF CARE | [address] | [address] | | | TESTS | | | [...] ABELARDOAM | [address] | [place], [place] | | | [facility] POINT OF CARE | [facility] | [address] | | | TESTS | | | [...] + + | [facility] | [address] | [place] [address] | | | SERVICES, SPECIAL | PARK [...] is just barely above background consistent | [facility] | | with an extremely low level [...] and its performance characteristics determined by the [facility] | | | Diagnostic Laboratories [...] | Laboratory Improvement Act of 1988. The [facility] | | | [facility] is a fully licensed and/or | | | accredited clinical laboratory under CLIA, [place], and the State of | | | [place]. | | + + + + + + + + | Performing | Address | City/State/Zipcode | Phone Number | | Organization | | | | + + + + + | [facility] | [address] | [place] [address] | | | DIAGNOSTIC | [address] [...] INTERPRETATION: Aspergillus galactomannan Antigen by EIA | [facility] | | | LABORATORY | | This [...] | + + + + + | [facility] | [address] | [place] [address] | | | SERVICES, SPECIAL | PARK [...] + | [facility] - | [address] | [place] [address] | | | [place] | | | | + + + [...] [facility] | [address] | [place] [address] | | | SERVICES, CORE | WALLY [...] + + + + + | [facility] | [address] | [place] [address] | | | SERVICES, CORE | PARK [...]
--- OUTSIDE RECORDS SUMMARY | ~2019-05-17 | XMS | Encounter Summary ---
Demographics + + + | Address | [address] | | | [place] [address] | + + + | Home Phone [...] Team Providers + +------+ + | Care Outpatient Pharmacy Manager Name | Role | Phone | + +------+ + | Zayda Hinton | PCP | | + +------+ + Encounter Details +--------+ + + + + | Date | Type | Department | Care Team | Description | +--------+ + + + + | 08/29/ | Pharmacy | Specialty Pharmacy | | | | 2016 | Visit | Services [address] | | | | | | [address] | | | | | | [place], [place] | | | | | | [address] | | | | | | [phone] | | | +--------+ + + + [...] [address] | | | | | | [place], [place] | | | | | | [address] | | | | | | [phone] | | | | | | | | +--------+---------+ + + + documented as of this encounter Visit Diagnoses Not on filedocumented in this encounter"
--- OUTSIDE RECORDS SUMMARY | ~2019-05-17 | XMS | Encounter Summary ---
Demographics + + + | Address | [address] | | | [place] [address] | + + + | Home Phone [...] Team Providers + +------+ + | Care Typecasting Machine Operator Name | Role | Phone [...] | | | | | Malignancies at [facility] | [address] | | | | | [address] | [place], [place] | | | | | Debi Burger Mailcode: | [address] | | | | | [facility] | [phone] | | | | | [place], | | | | | | [place] [address] | | | | | | [phone] | | | +--------+ + + + [...] Rd | | | | | | [place], [place] | | | | | | [address] | | | | | | [phone] | | | | | | | | +--------+---------+ + + + documented as of this encounter Visit Diagnoses Not on filedocumented in this encounter"
--- OUTSIDE RECORDS SUMMARY | ~2019-05-17 | XMS | Encounter Summary ---
Demographics + + + | Address | [address] | | | [place] [address] | + + + | Home Phone [...] Providers + +------+ + | Care Retail Selling Specialist Name | Role | Phone | + +------+ + | Zayda Hinton | PCP | | + +------+ + Encounter Details +--------+ + + + + | Date | Type | Department | Care Team | Description | +--------+ + + + + | 07/28/ | Pharmacy | Specialty Pharmacy | | | | 2016 | Visit | Services [address] | | | | | | [address] | | | | | | [place], [place] | | | | | | [address] | | | | | | [phone] | | | +--------+ + + + [...] Rd | | | | | | [place], [place] | | | | | | [address] | | | | | | [phone] | | | | | | | | +--------+---------+ + + + documented as of this encounter Visit Diagnoses Not on filedocumented in this encounter"
--- OUTSIDE RECORDS SUMMARY | ~2019-05-17 | XMS | Encounter Summary ---
Demographics + + + | Address | [address] | | | [place] [address] | + + + | Home Phone [...] Team Providers + +------+ + | Care Leather Production Artisan Name | Role | Phone | + +------+ + | Zayda Hinton | PCP | | + +------+ + Encounter Details +--------+ + + + + | Date | Type | Department | Care Team | Description | +--------+ + + + + | 07/05/ | Cement Finisher | Center for | Yari Garcia MD | | | 2017 | | Hematologic | [address] | | | | | Malignancies at | [address] | | | | | [address] | [place], [place] | | | | | [address] | [address] | | | | | Debi Burger Mailcode: | [phone] | | | | | [address] | | | | | | [place], | | | | | | [place] [address] | | | | | | [phone] | | | +--------+ + + + [...] 2019 | Visit | Malignancy | [address] | | | | | | [address] | | | | | | [place], [place] | | | | | | [address] | | | | | | [phone] | | | | | | | | +--------+---------+ + + + documented as of this encounter Visit Diagnoses Not on filedocumented in this encounter"
--- OUTSIDE RECORDS SUMMARY | ~2019-05-17 | XMS | Encounter Summary ---
Demographics + + + | Address | [address] | | | [place] [address] | + + + | Home Phone [...] Providers + +------+ + | Care Java Web Developer Name | Role | Phone | + +------+ + | Zayda Hinton | PCP | | + +------+ + Encounter Details +--------+ + + + + | Date | Type | Department | Care Team | Description | +--------+ + + + + | 10/31/ | Pharmacy | Specialty Pharmacy | | | | 2015 | Visit | Services [address] | | | | | | [address] | | | | | | [place], [place] | | | | | | [address] | | | | | | [phone] | | | +--------+ + + + [...] Rd | | | | | | [place], [place] | | | | | | [address] | | | | | | [phone] | | | | | | | | +--------+---------+ + + + documented as of this encounter Visit Diagnoses Not on filedocumented in this encounter"
--- OUTSIDE RECORDS SUMMARY | ~2019-05-17 | XMS | Encounter Summary ---
Demographics + + + | Address | [address] | | | [place] [address] | + + + | Home Phone [...] Providers + +------+ + | Care Supervisor Last Model Department Name | Role | Phone | [...] | | | | | | | [address] | | | | | | | [address] | | | | | | | [place], | | | | | | | [place] | | | | | | | [address] | | | | | | | Phone: | | | | | | | [phone] | | | | | | | Fax: | | | | | | | [phone] | +--------+--------+ + + + + Encounter [...] | | | | | | [address] | | | | | | [place], | | | | | | [place] [address] | | | | | | [phone] | | | +--------+ + + + [...] Rd | | | | | | [place], [place] | | | | | | [address] | | | | | | [phone] | | | | | | | [...] | | | | PST | ([facility]) | results section. | + +--------+ + + + | PRODUCT - PLATELET | Routin | 08/05/2015 | Acute myeloid | Results for this | | PHERESIS | e | 2:05 PM | leukemia (AML), M4 | procedure are in the | | LEUKOREDUCED | | PST | ([facility]) | results section. | + +--------+ + + + | CBC+DIFF,POC | Routin | 08/05/2015 | Acute myeloid | Results for this | | | e | 2:02 PM | leukemia (AML), M4 | procedure are in the | | | | PST | ([facility]) | results section. | + +--------+ + + + | CMP, POC (BMP+LFT) | Routin | 08/05/2015 | Acute myeloid | Results for this | | | e | 2:02 PM | leukemia (AML), M4 | procedure are in the | | | | PST | ([facility]) | results section. | + +--------+ + + + | POTASSIUM, PLASMA | Urgent | 08/05/2015 | Acute myeloid | Results for this | | | | 1:43 PM | leukemia (AML), M4 | procedure are in the | | | | PST | ([facility]) | results section. | + +--------+ + + + | LDH TOTAL, PLASMA | Routin | 08/05/2015 | Acute myeloid | Results for this | | | e | 1:43 PM | leukemia (AML), M4 | procedure are in the | | | | PST | ([facility]) | results section. | + +--------+ + + + | TREATMENT PARAMETERS | Routin | 08/05/2015 | Acute myeloid | | | #2 - BEACON | e | 1:42 PM | leukemia (AML), M4 | | | | | PST | ([facility]) | | + +--------+ [...] | | | | | PST | ([facility]) | | + +--------+ [...] SORTO | [address] | [place], [place] | | | RUTHIE CARTER OF KRISTA | [address] | [address] | | | TESTS | | | [...] + + + + | PRODUCT | [id number] | | [facility] | | | UNIT [...] + + + + | EXPIRATION | [id number] | | [facility] | | | DATE [...] + + + + | BLOOD | [id number] | | [facility] | | | PRODUCT [...] | + + + + + | [facility] | [address] | [place] [address] | | | PATHOLOGY | [address] [...] MACARIO | [address] | [place], [place] | | | RUTHIE CARTER OF KRISTA | [address] | [address] | | | TESTS | | | [...] + + + | [facility] | [address] | [place], [place] | | | [facility] POINT OF CARE | [address] | [address] | | | TESTS | | | [...] [facility] | [address] | [place] [address] | | | SERVICES, CORE | PARK [...] YESSICA LOZA | [address] | [place] [address] | | | SERVICES, CORE | [address] | | | + + + + + documented in this encounter Visit Diagnoses + + | Diagnosis | + + | Acute myeloid leukemia (AML), M4 (HCC) - Primary | + + documented in this encounter"
--- OUTSIDE RECORDS SUMMARY | ~2019-05-17 | XMS | Encounter Summary ---
Demographics + + + | Address | [address] | | | [place] [address] | + + + | Home Phone [...] Providers + +------+ + | Care Research Worker Kitchen Name | Role | Phone | + [...] | | | | transplant | [address]bi [address] | Mailcode: | | | | | ([facility]) | [place], [place] | [address] | | | | | Procedures | [address] | [place] | | | | | MRI HIP LT W | Phone: | Research | | | | | CONT DC | [phone] | Center | | | | | MRI, JOINT | Fax: | [place], [place] | | | | | OF LEG | [phone] | [address] | | | | | W/CONTRAST | | Phone: | | | | | | | [phone] | | | | | | | Fax: | | | | | | | [phone] | +--------+--------+ + + + + Encounter Details +--------+ + + + + | Date | Type | Department | Care Team | Description | +--------+ + + + + | 07/25/ | Hospital | Diagnostic Imaging | Yari Garcia MD | | | 2017 | Encounter | Services at [facility] | [address] | | | | | [address] | [address] | | | | | Debi Burger Mailcode: | [place], [place] | | | | | [address] [place] | [address] | | | | | [facility] | [phone] | | | | | [facility] [place] | | | | | | [address] | | | | | | [phone] | | | +--------+ + + + [...] Rd | | | | | | [place], [place] | | | | | | [address] | | | | | | [phone] | | | | | | | | +--------+---------+ + + + documented as of this encounter Visit Diagnoses + + | Diagnosis | + + | 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
--- OUTSIDE RECORDS SUMMARY | ~2019-05-17 | XMS | Encounter Summary ---
Demographics + + + | Address | [address] | | | [place] [address] | + + + | Home Phone [...] + +------+ + | Care Sales And Training Specialist Name | Role | Phone | + +------+ + | Pending Pcp Addition | PCP | Unavailable | + +------+ + Reason for Visit + + + | Reason | Comments | + + + | Lab Draw | Trifusion | + + + | Follow-up visit | ORLY Yanes | + + + | Dressing change [...] | | | | | | | [address] | | | | | | | [address] | | | | | | | [place], | | | | | | | [place] | | | | | | | [address] | | | | | | | Phone: | | | | | | | [phone] | | | | | | | Fax: | | | | | | | [phone] | +--------+--------+ + + + + Encounter Details +--------+ + + + + | Date | Type | Department | Care Team | Description | +--------+ + + + + | 11/07/ | Clinical | [facility] | | Lab Draw | | 2016 | Support | Hematologic | | (Trifusion); | | | Staff | [facility] | | Follow-up visit | | | | [address] | | ([facility]); | | | | [address] Mailcode: | | Dressing change | | | | [id number] | | (Trifusion) | | | | [place], | | | | | | [place] [address] | | | | | | [phone] | | | +--------+ + + + [...] encounter Progress Notes Samantha Blackwood, ZAFAR - 11/08/2015 10:21 AM PDTINFUSION/TRANSFUSION NURSING NOTE Name: Khurram Kelly Date: 11/08/2015 Provider: Dr. Garcia Narrative: Patient ambulatory to infusion room accompanied by his . Kermit Kelly is a [address] Garcia with a h/o AML. He is s/p URD PBSCT with BuCy conditioning (day 0 ). Assessment: Patient reports generally feeling well. He reports some soreness in both legs but that het was very active all weekend. He denies any fever, chills, dizziness, pain, N/T to hands or f eet, N/V/D/C, SOB or cough. Patient reports that starting Sunday he noticed that he had smal l red dots to BLE appear, he denies itching, pain or burning. He denies any bleeding gums or nosebleed. Patient denies any other complaints or concerns at this time. He will be seen to day in OV by ORLY Yanes. Line Care: Trifusion accessed per protocol. Good blood return noted. Appropriate waste discarded. L abs drawn and sent. Trifusion pulse flushed with 20 mL NS. Patient reports that he did not take TAC dose this morning, he confirms that he is taking 1.5 mg every morning and 1 mg ever y evening. Bio Patch noted to be saturated so dressing change preformed today. Trifusion intact to lef t anterior chest wall without erythema or induration. Dressing removed, skin intact without s/s exit site or tunnel infection. Using a Central Line Dressing Change kit, site cleansed with Chloraprep. Skin prep applied prior to dressing application. Biopatch applied with S orbaView dressing. Positive pressure valves changed to each port. All lumens pulse flushed with 10 mL NS and 5 mL of 10 uints/mL heparin. Patient tolerated procedure without difficul ty. Treatment Provided: Lab results reviewed. No blood product or electrolyte replacement required. Patient was reminded to call clinic with temp > 100.4, chills, s/s of bleeding or uncontrol led N/V/D/C. Patient verbalizes understanding. Patient was instructed to check out at the ont desk prior to leaving the clinic. Patient d/c d ambulatory with his . Next Appoint ment in [facility] is on 11/11/15 at 10:30 am with [facility]. documented in this encoun ter Plan of [...] Rd | | | | | | [place], [place] | | | | | | [address] | | | | | | [phone] | | | | | | | | +--------+---------+ + + + documented as of this encounter Procedures + +--------+ + + + | Procedure Name | Priori | Date/Time | Associated Diagnosis | Comments | | | ty | | | | + +--------+ + + + | BMP + MAG, POC CHM | Routin | 11/08/2015 | S/P allogeneic | Results for this | | | e | 10:15 AM | bone marrow | procedure are in the | | | | PDT | transplant (HCC) | results section. 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[facility])- primary | | | | | | induction failure | | + +--------+ + + + | CBC+DIFF,POC | Routin | 11/08/2015 | S/P allogeneic | Results for this | | | e | 10:07 AM | bone marrow | procedure are in the | | | | PDT | transplant ([facility]) | results section. 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[facility])- primary | | | | | | induction failure | | + +--------+ + + + | TREATMENT PARAMETERS | Routin | 11/08/2015 | Acute myeloid | | | #2 - [facility] | e | 9:53 AM | leukemia (AML), M4 | | | | | PDT | ([facility])- primary | | | | | | induction failure | | + +--------+ + + + | TREATMENT PARAMETERS | Routin | 11/08/2015 | Acute myeloid | | | #2 - [facility] | e | 9:53 AM | leukemia (AML), 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 | | | | | | induction failure | | + +--------+ + + + | TREATMENT PARAMETERS | Routin | 11/08/2015 | Acute myeloid | | | #2 - [place] | e | 9:53 AM | leukemia (AML), M4 | | | | | PDT | ([facility])- primary | | | | | | induction failure | | + +--------+ + + + | TREATMENT PARAMETERS | Routin | 11/08/2015 | Acute myeloid | | | #2 - [place] | e | 9:53 AM | leukemia (AML), M4 | | | | | PDT | ([facility])- primary | | | | | | induction failure | | + +--------+ + + + | TREATMENT PARAMETERS | Routin | 11/08/2015 | Acute myeloid | | | #2 - [place] | e | 9:53 AM | leukemia (AML), M4 | | | | | PDT | ([facility])- primary | | | | | | induction failure | | + +--------+ + + + | NURSING | Routin | 11/08/2015 | Acute myeloid | | | COMMUNICATION #3 - | e | 9:53 AM | leukemia (AML), M4 | | | [facility] | | PDT | (HCC)- primary | | | | | | induction failure | | + +--------+ + + + | NURSING | Routin | 11/08/2015 | Acute myeloid | | | COMMUNICATION #2 - | e | 9:53 AM | leukemia (AML), M4 | | | [facility] | | PDT | (HCC)- primary | | | | | | induction failure | | + +--------+ + + + | NURSING | Routin | 11/08/2015 | Acute myeloid | | | COMMUNICATION #1 - | e | 9:53 AM | leukemia (AML), M4 | | | [facility] | | PDT | (HCC)- primary | | | | | | induction failure | | + +--------+ + + + | TREATMENT PARAMETERS | Routin | 11/08/2015 | Acute myeloid | | | #1 - [place] | e | 9:53 AM | leukemia (AML), M4 | | | | | PDT | ([facility])- primary | | | | | | induction failure | | + +--------+ + + + | TREATMENT PARAMETERS | Routin | 11/08/2015 | Acute myeloid | | | #1 - [place] | e | 9:53 AM | leukemia (AML), M4 | | | | | PDT | ([facility])- primary | | | | | | induction failure | | + +--------+ + + + | CMV PCR | Routin | 11/08/2015 | S/P allogeneic | Results for this | | QUANTITATION, PLASMA | e | 9:53 AM | bone marrow | procedure are in the | | | | PDT | transplant ([facility]) | results section. 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[facility])- primary | | | | | | induction failure | | + +--------+ + + + | LIVER SET | Urgent | 11/08/2015 | S/P allogeneic | Results for this | | (AST,ALT,BILI | | 9:53 AM | bone marrow | procedure are [...] + | TACROLIMUS, WHOLE | Routin | 11/08/2015 | S/P allogeneic | Results for this | | BLOOD | e | 9:53 AM | bone marrow | procedure are [...] documented in this encounter Results BMP + MAGPHIL CHM (11/08/2015 10:15 AM PDT) + +---------+ + + [...] + + + | LDH, POC | 216 (H) | 0 - 206 U/L | [...] [facility] | [address] | [place], [place] | | | RUTHIE CARTER OF [facility] | [address] | [address] | | | TESTS | | | | + + + + + CBC+DIFF,POC (11/08/2015 10:07 AM PDT) + + + + + + | Component | Value | Ref Range | Performed | Pathologist | | | | | At | Signature | + + + + + + | WBC POC | 5.6 | 4.4 - 11.0 | [facility] - [...] + + + | HCT POC | 34.8 (L) | 41.0 - 53.0 % | [facility] - | | | | | | [place] | | | | | | [facility] POINT | | | | | | OF CARE | | | | | | TESTS | | + + + + + + | MCV POC | 102.4 (H) | 80.0 - 96.0 fL | [facility] - | | | | | | [place] | | | | | | [facility], POINT | | | | | | OF CARE | | | | | | TESTS | | + + + + + + | MCH POC | 34.1 (H) | 28.5 - 32.3 pg | [...] + + | RDW SD, POC | 61.6 (H) | 35.1 - 46.3 fL | [facility] - | | | | | | [place] | | | | | | [facility], POINT | | | | | | OF CARE | | | | | | TESTS | | + + + + + + | PLT POC | 59 (L) | 150 - 400 | [facility] [...] + + + + | NEUTROPHIL% | 60.6 | 50.0 - 70.0 % | [facility] - | | | POC | | | [place] | | | | | | [facility] POINT | | | | | | OF CARE | | | | | | TESTS | | + + + + + + | LYMPH% POC | 32.7 | 18 - 42 % | [facility] [...] + | [facility] | [address] | [place], [place] | | | [facility] POINT OF CARE | [address] | [address] | | | TESTS | | | | + + + + + LIVER SET (AST,ALT,BILI TOTAL,BILI DIRECT,ALK PHOS,ALB,PROT TOTAL) (11/08/2015 9:53 AM PDT ) + +---------+ + + [...] +---------+ + + + | AST(SGOT) | 32 | <=41 U/L | [facility] | | | | | | LABORATORY | | | | | | SERVICES, | | | | | | CORE | | + +---------+ + + + | ALT (SGPT) | 129 (H) | <=60 U/L | [facility] | [...] [facility] | [address] | [place] [address] | | | SERVICES, CORE | [address] | | | + + + + + CMV PCR QUANTITATION, PLASMA (11/08/2015 9:53 AM PDT) + + + + + [...] is just barely above background consistent | [facility] | | with an extremely low level [...] and its performance characteristics determined by the [facility] | | | [facility]. It has not been | | | cleared or approved by the Food and Drug Administration. FDA approval | | | is not required for clinical use of this test, and therefore | | | validation was done as required under the requirements of the Clinical | | | Laboratory Improvement Act of 1988. The [facility] | | | [facility] is a fully licensed and/or | | | accredited clinical laboratory under CLIA, CAP, and the State of | | | [place]. | | + + + + + + + + | Performing | Address | City/State/Zipcode | Phone Number | | Organization | | | | + + + + + | [facility] | [address] | [place] [address] | | | DIAGNOSTIC | [address] | | | | LABORATORIES | | | | + + + + + TACROLIMUS, WHOLE BLOOD (11/08/2015 9:53 AM PDT) + +-------+ + + + | Component | Value | Ref Range | Performed | Pathologist | | | | | At | Signature | + +-------+ + + + | TACROLIMUS | 6.9 | 5.0 - 15.0 | [facility] | [address] | [place] [address] | | | SERVICES, SPECIAL | PARK [...] 10 unit/mL IV flush | Given | 11/08/19 | 50 Units | | | | syringe 50 Units 50 Units, | | 16 11:24 | | | | | Intracatheter, NEEDED, | | AM PDT | | | | | Starting Sun11/08/15 at 1127, | | | | | | | Until Sun11/08/15 at 1732, line | | | | | | | patency | | | | | | + +--------+ + +------+------+ +-------+ + +---+---+ | Given | 11/08/19 | 50 Units | | | | | 16 11:23 | | | | | | AM PDT | | | | +-------+ + +---+---+ | Given | 11/08/19 | 50 Units | | | | | 16 11:22 | | | | | | AM PDT | | | | +-------+ + +---+---+ +---+---+ | | | +---+---+ documented in this encounter"
--- OUTSIDE RECORDS SUMMARY | ~2019-05-17 | XMS | Encounter Summary ---
Demographics + + + | Address | [address] | | | [place] [address] | + + + | Home Phone [...] Phone | + + +---------+ + | Gbariel Kelly | ECON | Unknown | | + + +---------+ + Care Team Providers + +------+ + | Care Biomedical Repair Technician Name | Role | Phone | [...] | | | | | | | [address] | | | | | | | [address] | | | | | | | [place], | | | | | | | [place] | | | | | | | [address] | | | | | | | Phone: | | | | | | | [phone] | | | | | | | Fax: | | | | | | | [phone] | +--------+--------+ + + + + Encounter [...] TPA on 08/09) | | | | [address] | | | | | | [address] Mailcode: | | | | | | [id number] | | | | | | [place], | | | | | | [place] [address] | | | | | | [phone] | | | +--------+ + + + [...] 2018 | Visit | Malignancy | [address] | | | | | | [address] | | | | | | [place], [place] | | | | | | [address] | | | | | | [phone] | | | | | | | [...] | | | PST | ([facility]) | results section. | + +--------+ + + + | CMP, POC (BMP+LFT) | Routin | 08/11/2015 | Acute myeloid | Results for this | | | e | 2:48 PM | leukemia (AML), M4 | procedure are in the | | | | PST | ([facility]) | results section. | + +--------+ + + + | LDH TOTAL, PLASMA | Routin | 08/11/2015 | Acute myeloid | Results for this | | | e | 2:33 PM | leukemia (AML), M4 | procedure are in the | | | | PST | ([facility]) | results section. | + [...] | | | PST | ([facility]) | | + +--------+ + + + | NURSING | Routin | 08/11/2015 | Acute myeloid | | | COMMUNICATION #3 - | e | 2:32 PM | leukemia (AML), M4 | | | [facility] | | PST | ([facility]) | | + +--------+ + [...] | | | PST | ([facility]) | | + +--------+ + [...] [facility] | [address] | [place], [place] | | | RUTHIE CARTER OF CARE | [address] | [address] | | | TESTS | | | [...] [facility] | [address] | [place], [place] | | | [facility] | [address] | [address] | | | TESTS | | | [...] [facility] | [address] | [place] [address] | | | KOLE, INDRA | [address] | | | + + + + + documented in this encounter Visit Diagnoses + + | Diagnosis | + + | Acute myeloid leukemia (AML), M4 (HCC) | + + documented in this encounter"
--- OUTSIDE RECORDS SUMMARY | ~2019-05-17 | XMS | Encounter Summary ---
Demographics + + + | Address | [address] | | | [place] [address] | + + + | Home Phone [...] Providers + +------+ + | Care Managing Broker Name | Role | Phone | + +------+ + | Pending Pcp Addition | PCP | Unavailable | + +------+ + Reason for Visit + + + | Reason | Comments | + + + | Lab Draw | [facility] | + + + | Dressing change | Neostar | + + + | Other | Potassium 40 meq PO | + + + | Chemotherapy | Vidaza C4D1 | + + + Chemotherapy (Routine) +--------+---------+ [...] | | myelomonocyt | [address] | [address] | | | | | ic leukemia, | Paulina Jabier | Paulina | | | | | not having | [address] | [address] | | | | | achieved | [place], [place] | Mailcode: | | | | | remission | [address] | [facility] | | | | | Procedures | Phone: | [place] | | | | | [place] | [phone] | Pavilion | | | | | AZACITIDINE | Fax: | [place], [place] | | | | | INJECTION, 1 | [phone] | [address] | | | | | [place] | | Phone: | | | | | CHM,IV | | [phone] | | | | | INFSN,1 HR | | Fax: | | | | | [place] CHM,IV | | [phone] | | | | | INFSN,ADDL | | | | | | | HR Vidaza | | | +--------+---------+ + + + + Encounter Details +--------+ + + + + | Date | Type | Department | Care Team | Description | +--------+ + + + + | 01/23/ | Clinical | Center for | | Lab Draw ([facility]); | | 2016 | Support | Hematologic | | Dressing change | | | Staff | Malignancies at [facility] | | ([facility]); Other | | | | [address] | | (Potassium 40 meq | | | | [place] Mailcode: | | PO); Chemotherapy | | | | [facility] [place] | | (Vidaza C4D1) | | | | [place], | | | | | | [place] [address] | | | | | | [phone] | | | +--------+ + + + [...] 88.7 kg (195 lb 8.8 | 01/24/2016 8:27 AM | | | | oz) | PDT | | + + + + + | Height | - | - | | + + + + + | Body Mass Index | 25.28 | 08/18/2015 4:35 PM | | | | | PST | | + + + + + documented in this encounter Progress Notes Ni Nelson RN - 01/24/2016 8:47 AM PDTFormatting of this note might be different fr om the original. Hematologic Malignancy: Primary refractory AML Conditioning regimen: tBuCy Date of transplant: 08/27/2015 (two day 0s) Donor: MM URD (DPB1 permissive antigen mismatch, male, [id number]) Patient scheduled for provider visit today with Aspen VILLALBA Patient ambulated in with spouse. Patient denies fevers, chills, sob, nausea, vomiting, everardo rrhea, constipation, and bleeding. He reports his appetite is fantastic and he has been drin jen 2L more of fluids a day. He reports exercising lots, recently did 18 holes of golf. He denies lightheadness, dizziness, or swelling. Patient reports sleeping well and overall feel ing great, he will have some nausea that comes and goes. He has no rash or swelling. Patient on Tacrolimus taper, no level drawn. VAD Lab Draw: [facility]ar accessed per protocol. Good blood return noted. Appropriate waste discarded. Lab s drawn and sent. Neostar pulse flushed with 20 mL NS and 5 mL of 10 units/mL Heparin. Neostar intact to left anterior chest wall without induration, patient does have erythema t o entire site under dressing. Dressing removed, skin intact without s/s exit site or tunnel infection. Using a Central Line Dressing Change kit, site cleansed with Chloraprep. Skin prep applied prior to dressing application. Biopatch applied with SorbaView dressing. Pos itive pressure valves changed to each port. All lumens pulse flushed with 5 mL of 10 units/ mL Heparin. Patient tolerated procedure without difficulty. Per infusion plan: No transfusions needed. Patient needs electrolyte replacement. Patient d ue for Pentamidine sometime this week, patient prefers to have it on his last day of chemoth erapy. Potassium chloride 40 meq PO per care orders for a potassium level of 3.4. see MAR. Supportive plan: none Chemo plan: D1 C4 Vidaza Labs: Lab Results Component Value Date WBC 8.6 01/24/2016 HB 13.3* 01/24/2016 HCT 38.6* 01/24/2016 PLT 86* 01/24/2016 BUN 12 01/24/2016 CR 0.9 01/24/2016 Narrative: Zofran 8 mg PO given as premedication. See Mar. Chemotherapy was checked by 2 RNs. Vidaza 70 mg IV was infused per chemotherapy protocol a nd completed without adverse event. Positive blood return noted pre and post infusion. For infusion details, see MAR. Assessment: Tolerated procedure Patient verbalized chemotherapy precautions. Patient was reminded to call clinic with temp > 100.4, chills, s/s of bleeding or uncontrol led N/V/D/C. Patient verbalizes understanding. Patient was instructed to [facility] prior to leaving the clinic. Patient d/c d ambulatory with . Next Appointment in [facility] is on 01/24/16 documented in this e ncounter Plan of [...] | | | | | | [place], [place] | | | | | | [address] | | | | | | [phone] | | | | | | | | +--------+---------+ + + + documented as of this encounter Procedures + +--------+ + + + | Procedure Name | Priori | Date/Time | Associated Diagnosis | Comments | | | ty | | | | + +--------+ + + + | BMP + MAG, POC CHM | Routin | 01/24/2016 | Acute myeloid | Results for this | | | e | 8:19 AM | leukemia (AML), M4 | procedure are in the | | | | PDT | ([facility])- primary | results section. 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 | | | | | | (HCC) | | + +--------+ + + + | TREATMENT PARAMETERS | Routin | 01/24/2016 | 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:05 AM | leukemia (AML), M4 | | | | | PDT | ([facility])- primary | | | | | | induction failure | | + +--------+ + + + | TREATMENT PARAMETERS | Routin | 01/24/2016 | 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:05 AM | leukemia (AML), M4 | | | | | PDT | ([facility])- primary | | | | | | induction failure | | + +--------+ + + + | TREATMENT PARAMETERS | Routin | 01/24/2016 | 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:05 AM | leukemia (AML), 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 | | | | | | induction failure | | + +--------+ + + + | TREATMENT PARAMETERS | Routin | 01/24/2016 | 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:05 AM | leukemia (AML), M4 | | | | | PDT | ([facility])- primary | | | | | | induction failure | | + +--------+ + + + | TREATMENT PARAMETERS | Routin | 01/24/2016 | 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:05 AM | leukemia (AML), M4 | | | | | PDT | ([facility])- primary | | | | | | induction failure | | + +--------+ + + + | NURSING | Routin | 01/24/2016 | Acute myeloid | | | COMMUNICATION #5 - | e | 8:05 AM | leukemia (AML), M4 | | | [place] | | PDT | (HCC)- primary | 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 | | | | | | (HCC) | | + +--------+ + + + | NURSING | Routin | 01/24/2016 | Acute myeloid | | | COMMUNICATION #4 - | e | 8:05 AM | leukemia (AML), M4 | | | [place] | | PDT | ([facility])- primary | 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 | | | | | | (HCC) | | + +--------+ + + + | NURSING | Routin | 01/24/2016 | Acute myeloid | | | COMMUNICATION #3 - | e | 8:05 AM | leukemia (AML), M4 | | | [place] | | PDT | ([facility])- primary | 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 | | | | | | (HCC) | | + +--------+ + + + | NURSING | Routin | 01/24/2016 | Acute myeloid | | | COMMUNICATION #3 - | e | 8:05 AM | leukemia (AML), M4 | | | [place] | | PDT | ([facility])- primary | 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 | | | | | | (HCC) | | + +--------+ + + + | NURSING | Routin | 01/24/2016 | Acute myeloid | | | COMMUNICATION #2 - | e | 8:05 AM | leukemia (AML), M4 | | | [place] | | PDT | ([facility])- primary | 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 | | | | | | (HCC) | | + +--------+ + + + | NURSING | Routin | 01/24/2016 | Acute myeloid | | | COMMUNICATION #2 - | e | 8:05 AM | leukemia (AML), M4 | | | [place] | | PDT | ([facility])- primary | 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 | | | | | | (HCC) | | + +--------+ + + + | NURSING | Routin | 01/24/2016 | Acute myeloid | | | COMMUNICATION #1 - | e | 8:05 AM | leukemia (AML), M4 | | | [place] | | PDT | ([facility])- primary | 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 | | | | | | (HCC) | | + +--------+ + + + | NURSING | Routin | 01/24/2016 | Acute myeloid | | | COMMUNICATION #1 - | e | 8:05 AM | leukemia (AML), M4 | | | [place] | | PDT | ([facility])- primary | 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 | | | | | | (HCC) | | + +--------+ + + + | TREATMENT PARAMETERS | Routin | 01/24/2016 | Acute myeloid | | | #1 - [place] | e | 8:05 AM | leukemia (AML), M4 | | | | | PDT | ([facility])- primary | 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 | | | | | | (HCC) | | + +--------+ + + + | TREATMENT PARAMETERS | Routin | 01/24/2016 | Acute myeloid | | | #1 - [place] | e | 8:05 AM | leukemia (AML), M4 | | | | | PDT | ([facility])- primary | 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 | | | | | | (HCC) | | + +--------+ + + + | TREATMENT PARAMETERS | Routin | 01/24/2016 | Acute myeloid | | | #1 - [place] | e | 8:05 AM | leukemia (AML), M4 | | | | | PDT | ([facility])- primary | 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 | | | | | | (HCC) | | + +--------+ + + + | CMV PCR | Routin | 01/24/2016 | Acute myeloid | Results for this | | QUANTITATION, PLASMA | e | 8:05 AM | leukemia (AML), M4 | procedure are in the | | | | PDT | ([facility])- primary | results section. 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 | | | | | | (HCC) | | + +--------+ + + + | LIVER SET | Urgent | 01/24/2016 | Acute myeloid | Results for this | | (AST,ALT,BILI | | 8:05 AM | leukemia (AML), M4 [...] encounter Results BMP + MAG, POC CHM (01/24/2016 8:19 AM PDT) + +---------+ + + + [...] +---------+ + + + | GLUCOSE, | 112 [...] [facility] | | | | | | RUHTIE CARTER | | | | | | [...] + + + | LDH, POC | 410 (H) | 0 - 206 U/L | [...] [facility] | [address] | [place], [place] | | | [facility] POINT OF CARE | [address] | [address] | | | TESTS | | | | + + + + + CBC+DIFF,POC (01/24/2016 8:19 AM PDT) + + + + + [...] + + + | RBC POC | 3.68 (L) | 4.50 - 6.00 | [facility] - | | | | | 10*6/uL | [facility] | | | | | | [facility] POINT | | | | | | OF CARE | | | | | | TESTS | | + + + + + + | HGB POC | 13.3 (L) | 13.5 - 17.5 | [facility] - | | | | | g/dL | [place] | | | | | | [facility] POINT | | | | | | OF CARE | | | | | | TESTS | | + + + + + + | HCT POC | 38.6 (L) | 41.0 - 53.0 % | [facility] - | | | | | | [facility] | | | | | | [facility] POINT | | | | | | OF CARE | | | | | | TESTS | | + + + + + + | MCV POC | 104.9 (H) | 80.0 - 96.0 fL | [...] + + | RDW SD, POC | 54.3 (H) | 35.1 - 46.3 fL | [facility] - | | | | | | [facility] | | | | | | RUTHIE CARTER | | | | | | OF CARE | | | | | | TESTS | | + + + + + + | PLT POC | 86 (L) | 150 - 400 | [facility] [...] + + + + | NEUTROPHIL% | 61.6 | 50.0 - 70.0 % | [facility] - | | | POC | | | [facility] | | | | | | [facility] POINT | | | | | | OF CARE | | | | | | TESTS | | + + + + + + | LYMPH% POC | 31.0 | 18 - 42 % | [facility] - | | | | | | [facility] | | | | | | [facility] POINT | | | | | | OF CARE | | | | | | TESTS | | + + + + + + | MONO %, POC | 7.1 | 3.5 - 9.0 % | [facility] - | | | | | | [facility] | | | | | | [facility], POINT | | | | | | OF CARE | | | | | | TESTS | | + + + + + + | EOS %, POC | 0.2 (L) | 1.0 - 3.0 [...] + + + | LYMPH# POC | 2.7 | 1.0 - 4.8 | [facility] - [...] + + + + | [facility] | [address] | [place], [place] | | | [place], POINT OF CARE | [address] | [address] | | | TESTS | | | | + + + + + LIVER SET (AST,ALT,BILI TOTAL,BILI DIRECT,ALK PHOS,ALB,PROT TOTAL) (01/24/2016 8:05 AM PDT ) + +---------+ + [...] + + + | ALT (SGPT) | 138 (H) | <=60 U/L | [facility] | [...] | + + + + + | [facility] | [address] | [place] [address] | | | SERVICES, CORE | [address] | | | + + + + + CMV PCR QUANTITATION, PLASMA (01/24/2016 8:05 AM PDT) + + + + [...] 2 fold may not reflect true | [facility] | | biological changes and [...] | | | characteristics determined by the [facility] | | | [facility]. It has not been cleared or approved by | | | the Food and Drug Administration. FDA approval is not required for | | | clinical use of this test, and therefore validation was done as | | | required under the requirements of the Clinical Laboratory Improvement | | | Act of 1988. The [facility] | | | [facility] Center is a fully licensed and/or accredited clinical | | | laboratory under CLIA, CAP, and the [facility]. | | + + + + + + + + | Performing | Address | City/State/Zipcode | Phone Number | | Organization | | | | + + + + + | [facility] | [address] | [place] [address] | | | DIAGNOSTIC | [address] [...] 70 mg in | New Bag | 01/24/20 | 70 mg | 214 | Central | | NaCl 0.9 % IV 70 mg (rounded | | 16 10:05 | | mL/hr | Line | | from 67.84 mg = 32 mg/m2 | | AM PDT | | | | | 2.12 m2 Treatment plan recorded | | | | | | | BSA), intravenous, Administer | | | | | | | over 30 Minutes, ONCE, 1 dose, | | | | | | | 01/24/16 at 0930, HIGH RISK | | | | | | | MEDICATION-CHEMOTHERAPY | | | | | | | Administration must be completed | | | | | | | within 1 hour of preparation., | | | | | | + +---------+ +-------+-------+ + +---+---+ | | | +---+---+ + +-------+ + +---+---+ | heparin 10 unit/mL IV flush | Given | 01/24/20 | 50 Units | | | | syringe 50 Units 50 Units, | | 16 10:47 | | | | | Intracatheter, NEEDED, | | AM PDT | | | | | Starting Sun01/24/16 at 1011, | | | | | | | Until Sun01/24/16 at 1704, line | | | | | | | patency | | | | | | + +-------+ + +---+---+ +-------+ + +---+---+ | Given | 01/24/20 | 50 Units | | | | | 16 10:46 | | | | | | AM PDT | | | | +-------+ + +---+---+ | Given | 01/24/20 | 50 Units | | | | | 16 10:45 | | | | | | AM PDT | | | | +-------+ + +---+---+ +---+---+ | | | +---+---+ + +-------+ +------+---+---+ | ondansetron (ZOFRAN) tablet 8 | Given | 01/24/20 | 8 mg | | | | mg 8 mg, oral, ONCE, 1 dose, Mon | | 16 9:33 | | | | | 01/24/16 at 0930 | | AM PDT | | | | + +-------+ +------+---+---+ +---+---+ | | | +---+---+ + +-------+ +--------+---+---+ | potassium chloride SR (K-DUR) | Given | 01/24/20 | 40 mEq | | | | tablet 40 mEq 40 mEq, oral, | | 16 9:33 | | | | | ONCE, 1 dose, 01/24/16 at 0900 | | AM PDT | | | | + +-------+ +--------+---+---+ +---+---+ | | | +---+---+ documented in this encounter"
--- OUTSIDE RECORDS SUMMARY | ~2019-05-17 | XMS | Encounter Summary ---
Demographics + + + | Address | [address] | | | [place] [address] | + + + | Home Phone [...] Team Providers + +------+ + | Care Outcomes Specialist Name | Role | Phone | [...] | | | | | remission | [address] | [facility] | | | | | | Phone: | [facility] | | | | | | [phone] | [place], [place] | | | | | | Fax: | [address] | | | | | | [phone] | Phone: | | | | | | | [phone] | | | | | | | Fax: | | | | | | | [phone] | +--------+---------+ + + + + Encounter Details +--------+---------+ + + + | Date | Type | Department | Care Team | Description | +--------+---------+ + + + | 01/07/ | Office | Center for | Aspen Cummins FNP | S/P allogeneic bone | | 2018 | Visit | Hematologic | [address] | marrow transplant | | | | Malignancies at | [address] | (HCC) (Primary Dx) | | | | [facility] | [place], [place] | | | | | [address] | [address] | | | | | [address] Mailcode: | [phone] | | | | | [facility] | | | | | | [facility] [place], | | | | | | [place] [address] | | | | | | [phone] | | | +--------+---------+ + + + [...] set you up for a test at [facility] for a test to see if [...] Donor: MMURD (DPB1 permissive antigen mismatch, male, [id number]) Identifying Data: Khurram Kelly is a 27 [...] his L ankle. He was evaluated at [facility] ED on 06/[address] angiogram negative [...] acute myelomonocytic leukemia. He was referred to [facility] for further evaluation and man agement of his newly dx'd AML. Pt was admitted to [facility] on 05/26/15. Peripheral blood [...] CD34, variable CD56, variable CD117, and dim TB133-fckhp mickey; promonocyte immunophenotype (70% by flow): CD11b, [...] providing peripheral blood counts remain stable 2. 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 He initially responded but flared during taper. He also developed low-level nausea and abd discomfort concerning for GvHD, emp irically treated with oral non-absorbables with resolution. - He had tapered prednisone to 10 mg po daily when he developed a rash for which he was see n in the ED in [place] in late 01/21. Prednisone was increased back [...] cortisol stim test to be done at [facility] in [place] to r/o adrenal insufficienc [...] [facility] AT [address] Mailcode: [facility] [id number] documented in this enc ounter Plan of [...] Rd | | | | | | [place], [place] | | | | | | [address] | | | | | | [phone] | | | | | | | [...]
--- OUTSIDE RECORDS SUMMARY | ~2019-05-17 | XMS | Encounter Summary ---
Demographics + + + | Address | [address] | | | [place] [address] | + + + | Home Phone [...] | + + +---------+ + | Gabriel Klely | ECON | Unknown | | + + +---------+ + Care Team Providers + +------+ + | Care Nursing Care Attendant Name | Role | Phone | [...] | | | | [facility] | [place], [place] | | | | | [address] | [address] | | | | | [address] Mailcode: | [phone] | | | | | [facility] | | | | | | [facility] [place], | | | | | | [place] [address] | | | | | | [phone] | | | +--------+ + + + [...] 2019 | Visit | Malignancy | [address] [facility] | | | | | | [address] | | | | | | [place] | | | | | | [address] | | | | | | [phone] | | | | | | | | +--------+---------+ + + + documented as of this encounter Visit Diagnoses Not on filedocumented in this encounter"
--- OUTSIDE RECORDS SUMMARY | ~2019-05-17 | XMS | Encounter Summary ---
Demographics + + + | Address | [address] | | | [place] [address] | + + + | Home Phone [...] Providers + +------+ + | Care Business Banking Sales Assistant Name | Role | Phone | [...] + + + + | 12/19/ | Hospital | [facility] [address] | Lobo Jeffers, | | | 2019 - | Encounter | [address] | [address] | | | | | Josie Barry | [address] | | | 12/20/ | | [place], [place] | [place], [place] | | | 2019 | | [address] | [address] | | | | | [phone] | [phone] | | | | | | | [...] + + + | Blood Pressure | 123/63 | 12/20/2018 5:36 AM | | | | | PDT | | + + + + + | Pulse | 73 | 12/20/2018 5:36 AM | | | | | PDT | | + + + + + | Temperature | 36.7 C (98.1 F) | 12/20/2018 5:36 AM | | | | | PDT | | + + + + + | Respiratory Rate | 16 | 12/20/2018 5:36 AM | | | | | PDT | | + + + + + | Oxygen Saturation | 100% | 12/20/2018 5:36 AM | | | | | PDT | | + + + + + | Inhaled Oxygen | - | - | | | Concentration | | | | + + + + + | Weight | 77 kg (169 lb 12.1 | 12/19/2018 8:10 AM | | | | oz) | PDT | | + + + + + | Height | 188 cm (6' 2") | 12/19/2018 8:10 AM | | | | | PDT | | + + + + + | Body Mass Index | 21.8 | 12/19/2018 8:10 AM | | | | | PDT | | + + + + + documented in this encounter Discharge Summaries Clover Baez MD - 12/20/2018 10:58 AM PDTFormatting of this note might be different f rom the original. [facility] DEPART[facility] OF [facility]THOPAEDICS & REHABILITATION INPATIENT HOSPITAL DISCHARGE SUMMARY & INTERDISCIPLINARY INSTRUCTIONS Patient: Khurram Kelly CSN: [id number] Admission Date: 12/19/2018 Discharge Date: 12/20/2018 Attending Physician: Lobo Jeffers MD PCP: JULIANA Nova Service: [facility] Orthopaedics & Rehabilitation Diagnoses Principal Final Diagnosis: 1. Avascular necrosis of right femoral head. Procedures 12/19/2018 Right total hip arthroplasty Brief Hospital Course Khurram Kelly admitted electively for the procedure(s) described above. The inpa tient stay related to this procedure(s) took an uncomplicated perioperative course and the p atient was followed closely by the attending providers, resident providers, and medical/nurs ing staff. Post operatively, the patient was admitted to the hospital for convalescent care . Pain control was managed with iv/po pain medication as needed. The Patient was given 24h rs of IV antibiotics post-operatively. For DVT prophylaxis the patient was started on aspiri n and SCDs and RAUL hose were also used. The patient made appropriate gains toward activity and functional goals while an inpatient, working daily with physical therapy. While on the hospital floor, the patient tolerated oral intake sufficient to maintain nutrition and hydr ation. The surgical wound remained clean, dry, and intact without signs concerning for infec tion. The patient was felt appropriate for discharge to home, and the patient and/or family members agree with this course of action. Diet Regular Regular diet- There are no restrictions to your diet. You may eat or drink whatever you pr efer, though healthy food choices are recommended. Wound Care -If you have sutures or [...] they suspect your wound is infected. Call [facility] Orthopedics first at [phone]. Activity Weight bear as tolerated on both lower extremities. Restrictions: Posterior hip precautions on operative side (no hip flexion >90 degrees, no c rossing your legs, no turning your foot towards the middle of the body (internal rotation). Condition on Discharge Stable Follow-Up Appointments ORTHOPEDICS OUTPATIENT CLINIC: Future Appointments Provider Department Dept Phone Center 12/30/2018 9:35 AM Janette Das Orthopaedics at [facility] [phone] Orthopedics Follow up in 2 weeks (or as previously scheduled). Call [phone] to confirm or schedule this appointment. PCP: As needed for any medical concerns not related to your surgery. Medication List START taking these medications acetaminophen 500 mg Tab Commonly known as: TYLENOL Take 2 tablets by mouth three times daily. Indications: Pain aspirin EC 325 mg Tbec Take 1 tablet by mouth once daily for 21 days. Indications: post-op clot prevention oxyCODONE (immediate release) 5 mg Tab Commonly known as: ROXICODONE Take 1 tablet by mouth every four hours as needed for moderate pain (unresponsive to non-op ioid medication). polyethylene glycol 17 gram Pwpk Commonly known as: MIRALAX Mix 1 packet and take orally once daily. Hold for loose stool Indications: constipation senna-docusate 8.6-50 mg Tab Commonly known as: SENOKOT S Take 2 tablets by mouth two times daily. Hold for loose stool Indications: constipation CONTINUE taking these medications acyclovir 800 mg Tab Commonly known as: ZOVIRAX Take 1 tablet by mouth two times daily. ALPRAZolam 0.5 mg Tab Commonly known as: XANAX Take 1 tablet by mouth three times daily as needed. Indications: anxious predniSONE 1 mg Tab Commonly known as: DELTASONE Take 9 mg by mouth once daily. Combine with 5 mg tabs Indications: [facility] Orthopaedic Service Pain Policy At the 6-week post-operative chris, pain management will be reassessed and pain management r ecommendations may be modified by the discretion of the Provider. At the 3-month post-operative chris, the patient will be referred to pain [...] administration instructions. - Call Orthopedic Clinic at [phone] if any persistent, localized swelling that does [...] and ask for the orthopaedic surgery resident patron attendant. Additional Post-Op Instructions / What to Expect [...] feel that you will need more, call [phone] during business hours in order to get [...] orthopedic provider. Vital Signs on Discharge: Ht 1.88 m (6' 2"), Wt 77 kg (169 lb 12.1 oz), BP 123/63, Pulse 73 , Temperature 36.7 C (98.1 F), Temperature source Oral, RR 16, SpO2 100%, BMI 21.8 kg/(m ^2). Facility age limit for growth percentiles is 18 years. Condition on Discharge: Improved Discharging Patient To: Home Date and Time of Discharge Summary Completion: 12/20/2018, 10:58 AM Discharging Provider: Clover Baez MD Discharging Attending: Lobo Jeffers MD Thank you for the opportunity to take care of Khurram Kelly during this inpati ent stay, it has been our pleasure. Clover Baez MD [facility] [place] Department of Orthopaedics & Rehabilitation [address] Mail Code: OP31 [facility] [address] [email or web address] Pager: [phone] documented in this en counter Medications at Time of Discharge + + [...] by mouth | 120 | 3 | 05/13/20 | | | oral | once daily. [...] + + + +---------+ + + | aspirin EC 325 mg | Take 1 tablet by | 21 | 0 | 12/20/19 | | | oral tablet,delayed | mouth once daily for | tablet | | 19 | 9 | | release | 21 days. | | | | | | (/EC)Indications: | Indications: post-op | | | | | | post-op clot | clot prevention | | | | | | prevention | | | | | | + + + +---------+ + + documented as of this encounter Progress Notes Clover Baez MD - 12/20/2018 10:57 AM PDT [facility] DEPARTMENT OF ORTHOPAEDICS & REHABILITATION ORTHOPEDIC ONCOLOGY PROGRESS NOTE Patient: Khurram Kelly Encounter Date: 12/20/2018 Admitted: 12/19/2018 Attending Physician: Lobo Jeffers MD Patient ID: Surgery: right total hip arthroplasty Date of surgery: 12/19/2018 Post Operative Plan: PT / OT - Weight bearing as tolerated Dressing - Maintain surgical dressings Rodriguez - na Antibiotics - Ancef for 24 hours perioperatively DVT - ASA ED 325mg daily x6 weeks, SCDs in house. Radiology - AP and Lateral Xray, reviewed Labs - Postoperative day 1: BMP, CBC; reviewed Dispo - Home today Orthopaedic Follow-up: The patient should call to schedule/confirm a follow up appointment in approximately 2 weeks. Future Appointments Provider Department Directions 12/30/2018 9:35 AM Janette Das Orthopaedics at [facility] 01/20/2019 10:20 AM [facility] Arrive at: 10th Floor Hematology/Medical Oncology 01/21/2019 9:20 AM Sabrina Baez [facility] [place] [facility] The actual length of your visit is determined by services such as dilation, tests and procedures. 01/21/2019 3:00 PM Aud Flex Staff Otolaryngology Audiology Services at [facility] 01/21/2019 3:00 PM AUDIO REDD 2 Otolaryngology Audiology Services at [facility] 01/21/2019 3:30 PM Janette Manning Otolaryngology Otology Services at [facility] Subjective: Interval Hx: Feels well, no complaints now Objective: Last Vitals: Ht 1.88 m (6' 2"), Wt 77 kg (169 lb 12.1 oz), BP 123/63, Pulse 73, Temperature 36.7 C (98.1 F), Temperature source Oral, RR 16, SpO2 100%, BMI 21.8 kg/(m^2). Facilit y age limit for growth percentiles is 18 years. Exam: General: Well appearing, NAD CV/Resp: Breathing comfortably, Neurologic: Awake and alert MSK: right lower extremity: - Inspection: Dressing c/d/i - Sensation: Intact to light touch plantar / dorsal foot - Motor: Wiggles toes, active ankle plantarflexion and dorsiflexion - Vascular: toes warm & well perfused CLOVER BAEZ MD documented in this encounter Plan of [...] 2018 | Visit | Malignancy | [address] | | | | | | [address] | | | | | | [place], [place] | | | | | | [address] | | | | | | [phone] | | | | | | | | +--------+---------+ + + + documented as of this encounter Procedures + +--------+ + + + | Procedure Name | Priori | Date/Time | Associated Diagnosis | Comments | | | ty | | | | + +--------+ + + + | CBC (HEMOGRAM) ONLY | Urgent | 12/20/2018 | | Results for this | | | | 7:03 AM | | procedure are in the | | | | PDT | | results section. | + +--------+ + + + | BASIC METABOLIC SET | Urgent | 12/20/2018 | | Results for this | | (NA, K, CL, TCO2, | | 7:03 AM | | procedure are in the | | BUN, CR, GLU, CA) | | PDT | | results section. | + +--------+ + + + | CBC ONLY | Urgent | 12/20/2018 | | Results for this | | | | 7:03 AM | | procedure are in the | | | | PDT | | results section. | + +--------+ + + + | PROCEDURE NOTE | Routin | 12/20/2018 | | Results for this | | | e | 6:18 AM | | procedure are in the | | | | PDT | | results section. | + +--------+ + + + | X-RAY HIP 1 VIEW | Urgent | 12/19/2018 | | Results for this | | WITH PELVIS (LEFT OR | | 4:13 PM | | procedure are in the | | RIGHT) | | PDT | | results section. | + +--------+ + + + | OPERATION RECORD | | 12/19/2018 | | Results for this | | | | 11:52 AM | | procedure are in the | | | | PDT | | results section. | + +--------+ + + + | CAPILLARY BLOOD | Routin | 12/19/2018 | | Results for this | | GLUCOSE (NO CHG), | e | 11:12 AM | | procedure are in the | | POC | | PDT | | results section. | + +--------+ + + + | PROCEDURE NOTE | Routin | 12/19/2018 | | Results for this | | | e | 10:55 AM | | procedure are in the | | | | PDT | | results section. | + +--------+ + + + | TOTAL HIP | Electi | 12/19/2018 | AVN RIGHT HIP | | | ARTHROPLASTY | ve | 9:14 AM | | | | | Surgic | PDT | | | | | al | | | | + +--------+ + + + | CAPILLARY BLOOD | Routin | 12/19/2018 | | Results for this | | GLUCOSE (NO CHG), | e | 8:33 AM | | procedure are in the | | POC | | PDT | | results section. | + +--------+ + + + | CARDIOLOGY | | 12/19/2018 | | Results for this | | | | 12:00 AM | | procedure are in the | | | | PDT | | results section. | + +--------+ + + + documented in this encounter Results CBC (HEMOGRAM) ONLY (12/20/2018 7:03 AM PDT) + + + + + + | Component | Value | Ref Range | Performed | Pathologist | | | | | At | Signature | + + + + + + | WHITE CELL | 10.26 | 3.50 - 10.80 | [facility] | | | COUNT | | K/cu mm | LABORATORY | | | | | | SERVICES, | | | | | | CORE | | + + + + + + | RED CELL | 3.90 (L) | 4.50 - 6.00 | [facility] | | | COUNT | | M/cu mm | LABORATORY | | | | | | SERVICES, | | | | | | CORE | | + + + + + + | HEMOGLOBIN | 11.9 (L) | 13.5 - 17.5 | [facility] | | | | | g/dL | LABORATORY | | | | | | SERVICES, | | | | | | CORE | | + + + + + + | HEMATOCRIT | 36.3 (L) | 41.0 - 53.0 % | [facility] | | | | | | LABORATORY | | | | | | SERVICES, | | | | | | CORE | | + + + + + + | MCV | 93.1 | 80.0 - 100.0 fL | [facility] | | | | | | LABORATORY | | | | | | SERVICES, | | | | | | CORE | | + + + + + + | MCHC | 32.8 | 32.0 - 36.0 | [facility] | | | | | g/dL | LABORATORY | | | | | | SERVICES, | | | | | | CORE | | + + + + + + | RDW SD | 42.8 | 35.1 - 46.3 fL | [facility] | | | | | | LABORATORY | | | | | | SERVICES, | | | | | | CORE | | + + + + + + | PLATELET | 189 | 150 - 400 K/cu | [facility] | | | COUNT | | mm | LABORATORY | | | | | | SERVICES, | | | | | | CORE | | + + + + + + | MPV | 8.7 (L) | 9.7 - 12.3 [...] [facility] | [address] | [place] [address] | | | SERVICES, CORE | [address] | | | + + + + + BASIC METABOLIC SET (NA, K, CL, TCO2, BUN, CR, GLU, CA) (12/20/2018 7:03 AM PDT) + +---------+ + + + [...] | | | LABORATORY | | | ITALIAN | | | SERVICES, | | | [...] + | ANION GAP | 6 | 4 - 11 mmol/L [...] MDRD equation recommended by the National | [facility] | | Kidney Disease Education Program. Estimated [...] | + + + + + | [email or web address] | [address] | [place] [address] | | | SERVICES, INDRA | [address] | | | + + + + + PROCEDURE NOTE (12/20/2018 6:18 AM PDT)X-RAY HIP 1 VIEW WITH PELVIS (LEFT OR RIGHT) (12/19 4:13 PM PDT) + + | Specimen | + + | | + + + + + | Narrative | Performed At | + + + | EXAM: HIP 1 VIEW WITH PELVIS (LEFT OR RIGHT) HISTORY: s/p CHRISTIE, | [facility] | | right COMPARISON: 11/18/2018 FINDINGS: On the right there | RADIOLOGY VOICE | | is a new noncemented total hip arthroplasty in normal alignment. The | RECOGNITION 2 | | hardware is intact and there is no periprosthetic fracture. The left | | | total hip arthroplasty is intact and normally aligned. No focal | | | destructive lesion is observed. The sacroiliac joints and symphysis | | | pubis are intact. There are postoperative changes in the right hip | | | soft tissues. IMPRESSION: New right total hip arthroplasty in | | | normal alignment without acute complication. I have personally | | | reviewed the images and, if necessary, edited the report. I agree with | | | the report as now presented. Final signature: Sharon Padilla | | | 12/20/2018 7:58 AM Preliminary: Sharon Padilla MD | | | Dictation initiated: Sharon Padilla MD 12/20/2018 7:57 AM | | + + + + + | Procedure Note | + + | Service Account, Radiant Res In Interface - 12/20/2018 7:59 AM PDT EXAM: HIP 1 VIEW | | WITH PELVIS (LEFT OR RIGHT) HISTORY: s/p CHRISTIE, right COMPARISON: 11/18/2018 FINDINGS: On | | the right there is a new noncemented total hip arthroplasty in normal alignment. The | | hardware is intact and there is no periprosthetic fracture. The left total hip | | arthroplasty is intact and normally aligned. No focal destructive lesion is observed. | | The sacroiliac joints and symphysis pubis are intact. There are postoperative changes in | | the right hip soft tissues. IMPRESSION: New right total hip arthroplasty in normal | | alignment without acute complication. I have personally reviewed the images and, if | | necessary, edited the report. I agree with the report as now presented. Final | | signature: Sharon Padilla MD 12/20/2018 7:58 AM Preliminary: Sharon Padilla MD | | Dictation initiated: Sharon Padilla MD 12/20/2018 7:57 AM | |IMPRESSION: | | | |New right total hip arthroplasty in normal alignment without acute complication. | | | |I have personally reviewed the images and, if necessary, edited the report. I agree with th e report as now presented. | | | |Final signature: Sharon Padilla MD 12/20/2018 7:58 AM | |Preliminary: Sharon Padilla MD | |Dictation initiated: Sharon Padilla MD 12/20/2018 7:57 AM | + + + +---------+ + + | Performing | Address | City/State/Zipcode | Phone Number | | Organization | | | | + +---------+ + + | [facility] | | | | | VOICE RECOGNITION 2 | | | | + +---------+ + + OPERATION RECORD (12/19/2018 11:52 AM PDT) + + | Procedure Note | + + | Lobo Jeffers MD - 12/19/2018 11:52 AM PDT Date of Service: 12/19/2018 | | Attending Surgeon: Lobo Jeffers MD Maker Up Folding(s): Jhony | | Mirza . Jeramie Roper DO. 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 He previously had chemotherapy for his leukemia that resulted in avascular | | necrosis of bilateral femoral heads. The left side has already gone to a total hip | | arthroplasty and is now ready for a right total hip arthroplasty.Procedure In Detail: | | Patient was properly identified and taken to the operating room. He was initially given | | a spinal anesthetic. He was then repositioned to a lateral decubitus position with the | | left side down. He was prepped and draped in the usual fashion for an approach to the | | left hip and lower extremity. A team pause was completed. Test and pinch, an incision | | was then made on the lateral side for posterior approach to the hip. The patient | | reacted strongly. The patient was then given a general anesthetic. Once the anesthetic | | was completely placed, we again resumed surgery. The incision was followed for a | | posterior approach down through the subcutaneous tissue and the fascial plane with | | electrocautery. The gluteal fibers were split longitudinally. The external rotators | | and the joint capsule were taken down. The hip was dislocated. Retractors were placed | | anterior and posterior around the femoral neck. A saw was used to cut the femoral head | | free. The femoral head was removed. Upon inspection, the femoral head had complete | | delamination of the weightbearing surface. Retractors were then placed anterior and | | posterior around the acetabulum. The remaining acetabulum, labrum, and overlying | | capsule were removed. The hip was then sequentially reamed to a size 56, which had good | | bleeding bone. A size 56 acetabular component was impacted in place in what was felt | | to be acceptable version. A single screw was then placed in the weightbearing dome | | area. The standard liner was then impacted in place. Retractors were then placed around | | the proximal portion of the femur. The remaining tissue within the piriformis fossa | | was removed. A box chisel was used to open the canal, followed by a canal seeker. The | | canal was then sequentially reamed to a size 13. The canal was then sequentially | | broached to a size 13, which appeared to have good contact. Length appeared to be | | appropriate. The high offset femoral neck trial was chosen because he required a high | | offset on the other side. The trial with the 0 head had excellent stability and was | | found to be acceptable. The trials were then removed. The final femoral neck was | | impacted in place. We again tried the femoral head with a size 0. It seemed to have an | | excellent fit. Range of motion allowed better than 120 degrees of flexion and about | | nearly 75 degrees of internal rotation with the hip flexed and it came to full | | extension. Length appeared to be within millimeters of the other side. The femoral | | head was then removed. A final ceramic head was then impacted in place. The hip was | | then reduced. Range of motion was identical to the trials. Closure then consisted of | | soaking the hip for 3 minutes in a dilute Betadine solution. The hip capsule was | | repaired with 0 Vicryl in [id number] fashion. The external rotators were not | | repaired. The gluteal fibers were returned to their anatomic position and closed with a | | Strata stitch. The subcutaneous tissue was repaired with 2-0 Vicryl, followed by a | | V-Loc at the skin. Dressing consisted of a Mepilex dressing. Patient was then awakened | | and returned to recovery room.Postoperative Plan: Patient can be weightbearing as | | tolerated, posterior hip precautions, and discharged when stable.Lobo Jeffers, | | DUANE/JOSHD: 12/19/2018 11:05:02DT: 12/19/2018 11:52:31Job #: [id number] | |gluteal fibers were returned to their anatomic position and closed with a Strata stitch. T he subcutaneous tissue was repaired with 2-0 Vicryl, followed by a V-Loc at the skin. Dress ing consisted of a Mepilex | |dressing. Patient was then awakened and returned to recovery room. | | | |Postoperative Plan: Patient can be weightbearing as tolerated, posterior hip precautions, and discharged when stable. | | | | | | | |Lobo Jeffers MD | |LIZZY/JOE | | | | | | /[id number] | + + CAPILLARY BLOOD GLUCOSE (NO CHG), POC (12/19/2018 11:12 AM PDT) + +---------+ + + [...] [facility] | [address] | [place], [place] | | | [facility] | [address] | [address] | | | TESTS | | | | + + + + + PROCEDURE NOTE (12/19/2018 10:55 AM PDT) + + + | Narrative | Performed At | + + + | Lobo Jeffers MD 12/19/2018 10:57 AM Brief Operative Note | | | Preop diagnosis:avascular necrosis right femoral head Postop | | | diagnosis:same Procedure:right total hip arthroplasty Surgeon: | | | Zeyad Maker Up Folding:Robert Murray Anesthesia:spinal with | | | general Estimated Blood Loss:400 mls Tourniquet time:none | | | Specimen:none Drain:none Components:jeny trabecular metal | | | femur 13 high offset with 36 +0 ceramic head, 56 mm trabecular metal | | | acetabulum with standard poly liner. Complications:none | | | Post op plan:WBAT, posterior precautions, d/c when stable. | | + + + CAPILLARY BLOOD GLUCOSE (NO CHG), POC (12/19/2018 8:33 AM PDT) + +-------+ + + + | Component | Value | Ref Range | Performed | Pathologist | | | | | At | Signature | + +-------+ + + + | BLOOD | 74 | 60 - 99 mg/dL | [facility] [...] [facility] | [address] | [place], [place] | | | [facility] | [address] | [phone] | | | TESTS | | | | + + + + + CARDIOLOGY (12/19/2018 12:00 AM PDT) + + + | [...] | acetaminophen (TYLENOL) tablet | Given | 12/20/19 | 1,000 mg | | | | 1,000 mg 1,000 mg, oral, THREE | | 19 12:46 | | | | | TIMES DAILY, First dose on Lupe | | PM PDT | | | | | 12/19/18 at 1600, Until | | | | | | | Discontinued | | | | | | + +--------+ + +------+------+ +---+---+ | | | +---+---+ + +-------+ + +---+---+ | acetaminophen (TYLENOL) tablet | Given | 12/21/19 | 1,000 mg | | | | 1,000 mg 1,000 mg, oral, THREE | | 19 10:18 | | | | | TIMES DAILY, First dose (after | | AM PDT | | | | | last modification) on Lupe 12/19/18 | | | | | | | at 2200, Until Discontinued | | | | | | + +-------+ + +---+---+ +-------+ + +---+---+ | Given | 12/20/19 | 1,000 mg | | | | | 19 8:16 | | | | | | PM PDT | | | | +-------+ + +---+---+ + +---+ | | | + +---+ | acetaminophen (TYLENOL) tablet | | | 1 dose, Starting Sun12/19/18 at | | | 1245, Until Sun12/19/18 at 1246 | | + +---+ | | | + +---+ + +-------+ +--------+---+---+ | acyclovir (ZOVIRAX) tablet 800 | Given | 12/21/19 | 800 mg | | | | mg 800 mg, oral, TWICE DAILY, | | 19 10:15 | | | | | First dose on [facility] 12/19/18 at | | AM PDT | | | | | 2100, Until Discontinued | | | | | | + +-------+ +--------+---+---+ +-------+ +--------+---+---+ | Given | 12/20/19 | 800 mg | | | | | 19 8:16 | | | | | | PM PDT | | | | +-------+ +--------+---+---+ +---+---+ | | | +---+---+ + +-------+ +--------+---+---+ | ALPRAZolam (XANAX) tablet 0.5 | Given | 12/20/19 | 0.5 mg | | | | mg 0.5 mg, oral, THREE TIMES | | 19 6:50 | | | | | DAILY NEEDED, Starting Lupe | | PM PDT | | | | | 12/19/18 at 1451, Until Fri | | | | | | | 12/20/18 at 2043, anxiety | | | | | | + +-------+ +--------+---+---+ +---+---+ | | | +---+---+ + +-------+ +--------+---+---+ | aspirin EC tablet 325 mg 325 | Given | 12/21/19 | 325 mg | | | | mg, oral, TWICE DAILY, First dose | | 19 10:15 | | | | | on Lupe 12/19/18 at 2100, Until | | AM PDT | | | | | Discontinued | | | | | | + +-------+ +--------+---+---+ +-------+ +--------+---+---+ | Given | 12/20/19 | 325 mg | | | | | 19 8:17 | | | | | | PM PDT | | | | +-------+ +--------+---+---+ +---+---+ | | | +---+---+ + +---------+ +-----+---+---+ | ceFAZolin IV 2 gram in dextrose | New Bag | 12/21/19 | 2 g | | | | (RTU) 2 g, intravenous, EVERY 8 | | 19 1:52 | | | | | HOURS, 2 doses, First dose on | | AM PDT | | | | | Lupe 12/19/18 at 1730, Last dose on | | | | | | | 12/20/18 at 0130 | | | | | | + +---------+ +-----+---+---+ +---------+ +-----+---+---+ | New Bag | 12/20/19 | 2 g | | | | | 19 5:22 | | | | | | PM PDT | | | | +---------+ +-----+---+---+ +---+---+ | | | +---+---+ + +-------+ +--------+---+---+ | HYDROmorphone (DILAUDID) | Given | 12/20/19 | 0.2 mg | | | | injection 0.2 mg 0.2 mg, | | 19 6:49 | | | | | intravenous, EVERY 3 HOURS | | PM PDT | | | | | NEEDED, Starting Lupe 12/19/18 at | | | | | | | 1215, Until 12/20/18 at 2042, | | | | | | | severe pain | | | | | | + +-------+ +--------+---+---+ +-------+ +--------+---+---+ | Given | 12/20/19 | 0.2 mg | | | | | 19 12:35 | | | | | | PM PDT | | | | +-------+ +--------+---+---+ +---+---+ | | | +---+---+ + +-------+ +------+---+---+ | ondansetron ODT (ZOFRAN ODT) | Given | 12/21/19 | 8 mg | | | | tablet 8 mg 8 mg, oral, EVERY 12 | | 19 8:55 | | | | | HOURS NEEDED, Starting Fri | | AM PDT | | | | | 12/20/18 at 0837, Until Fri | | | | | | | 12/20/18 at 2043, nausea/vomiting, | | | | | | | first line | | | | | | + +-------+ +------+---+---+ +---+---+ | | | +---+---+ + +-------+ +------+---+---+ | oxyCODONE (immediate release) | Given | 12/20/19 | 5 mg | | | | (ROXICODONE) tablet 5 mg 5 mg, | | 19 4:26 | | | | | oral, EVERY 4 HOURS NEEDED, | | PM PDT | | | | | Starting Lupe 12/19/18 at 1131, | | | | | | | Until Lupe 12/19/18 at 1646, | | | | | | | moderate pain, unresponsive to | | | | | | | non-opioid medication | | | | | | + +-------+ +------+---+---+ +-------+ +------+---+---+ | Given | 12/20/19 | 5 mg | | | | | 19 12:17 | | | | | | PM PDT | | | | +-------+ +------+---+---+ +---+---+ | | | +---+---+ + +-------+ +-------+---+---+ | oxyCODONE (immediate release) | Given | 12/21/19 | 15 mg | | | | (ROXICODONE) tablet 5-15 mg 5-15 | | 19 2:07 | | | | | mg, oral, EVERY 3 HOURS | | PM PDT | | | | | NEEDED, Starting Sun12/19/18 at | | | | | | | 1700, Until Sun12/20/18 at 2043, | | | | | | | moderate pain, unresponsive to | | | | | | | non-opioid medication | | | | | | + +-------+ +-------+---+---+ +-------+ +-------+---+---+ | Given | 12/21/19 | 15 mg | | | | | 19 8:23 | | | | | | AM PDT | | | | +-------+ +-------+---+---+ | Given | 12/21/19 | 15 mg | | | | | 19 5:33 | | | | | | AM PDT | | | | +-------+ +-------+---+---+ + +---+ | | | + +---+ | oxyCODONE (immediate release) | | | (ROXICODONE) tablet 1 dose, | | | Starting Sun12/19/18 at 1216, | | | Until Sun12/19/18 at 1217 | | + +---+ | | | + +---+ + +-------+ +------+---+---+ | polyethylene glycol (MIRALAX) | Given | 12/21/19 | 17 g | | | | packet 17 g 17 g, oral, DAILY, | | 19 10:15 | | | | | First dose on Sun12/19/18 at | | AM PDT | | | | | 1500, Until Discontinued | | | | | | + +-------+ +------+---+---+ +---+---+ | | | +---+---+ + +-------+ +------+---+---+ | predniSONE (DELTASONE) oral | Given | 12/21/19 | 9 mg | | | | dose 9 mg 9 mg, oral, DAILY, | | 19 10:15 | | | | | First dose on Sun12/20/18 at | | AM PDT | | | | | 0900, Until Discontinued | | | | | | + +-------+ +------+---+---+ +---+---+ | | | +---+---+ + +-------+ +---------+---+---+ | senna-docusate (SENOKOT S) | Given | 12/21/19 | 2 | | | | 8.6-50 mg 2 tablet 2 tablet, | | 19 10:15 | tablets | | | | oral, TWICE DAILY, First dose on | | AM PDT | | | | | Lupe 12/19/18 at 2100, Until | | | | | | | Discontinued | | | | | | + +-------+ +---------+---+---+ +-------+ +---------+---+---+ | Given | 12/20/19 | 2 | | | | | 19 8:17 | tablets | | | | | PM PDT | | | | +-------+ +---------+---+---+ +---+---+ | | | +---+---+ documented in this encounter
--- OUTSIDE RECORDS SUMMARY | ~2019-05-17 | XMS | Encounter Summary ---
Demographics + + + | Address | [address] | | | [place] [address] | + + + | Home Phone [...] Providers + +------+ + | Care Assistant General Manager Name | Role | Phone | [...] | | | | | remission | [address] | [id number] | | | | | Procedures | Phone: | Leon | | | | | [place] | [phone] | Pavilion | | | | | AZACITIDINE | Fax: | [place], [place] | | | | | INJECTION, 1 | [phone] | [address] | | | | | MG [place] | | Phone: | | | | | CHM,IV | | [phone] | | | | | INFSN,1 HR | | Fax: | | | | | [place] CHM,IV | | [phone] | | | | | INFSN,ADDL | [...] | | | | | | [place], | | | | | | [place] [address] | | | | | | [phone] | | | +--------+ + + + [...] instructed to check out at the front desk assistant prior to leavi ng the clinic. Patient [...] Rd | | | | | | [place], [place] | | | | | | [address] | | | | | | [phone] | | | | | | | [...] + + + | YESSICA SORTO | [address] | [place], [place] | | | RUTHIE CARTER OF KRISTA | [address] | [address] | | | TESTS | | | [...] SORTO | [address] | [place], [place] | | | EMMA POINT OF CARE | [address] | [address] | | | TESTS | | | [...] [facility] | [address] | [place] [address] | | | INDRA SHARIF | WALLY [...] 2 fold may not reflect true | [facility] | | biological changes and must [...] | | | characteristics determined by the [facility] | | | [facility] Diagnostic [facility]. It has not been cleared or approved by | | | the Food and Drug Administration. FDA approval is not required for | | | clinical use of this test, and therefore validation was done as | | | required under the requirements of the Clinical Laboratory Improvement | | | Act of 1988. The [facility] | | | Diagnostic Center is a fully licensed and/or accredited clinical | | | laboratory under CLIA, CAP, and the [facility]. | | + + + + + + + + | Performing | Address | City/State/Zipcode | Phone Number | | Organization | | | | + + + + + | SHAN | [address] | [place] [address] | | | DIAGNOSTIC | [address] [...]
--- OUTSIDE RECORDS SUMMARY | ~2019-05-17 | XMS | Encounter Summary ---
Demographics + + + | Address | [address] | | | [place] [address] | + + + | Home Phone [...] Providers + +------+ + | Care Railroad Inspector Name | Role | Phone | [...] + + | 10/17/ | Hospital | [facility] GI PROCEDURE | Chris Salvador, | | | 2017 | Encounter | [address] | | | | | | F[place] Mailcode: [facility] | | | | | | [facility] | | | | | | [facility], | | | | | | [address] | | | | | | [place], [place] | | | | | | [address] | | | | | | [phone] | | | +--------+ + + + [...] hours or on weekends and holiday Hospital State Tested Nursing Assistant toll free [phone] ext. [phone] and have the GI doctor senior application programmer paged. The provider who performed your procedure [...] m the original. PRE PROCEDURE NOTE: MR# [id number] Subjective: Khurram Kelly is a 26 y.o. [...] 2018 | Visit | Malignancy | [address] | | | | | | [address] | | | | | | [facility] [place] | | | | | | [address] | | | | | | [phone] | | | | | | | [...] + +--------+ + + + | NON DIRECTOR LABOR STANDARDS CYTOLOGY | Routin | 10/17/2016 | | [...] ---+ | MRN: | [facility] | | [id number] Date: 10/17/2016Patient Name: Khurram | ENDOSCOPY | | BrandyquesOrder #: [id number] of : 1990CSN: | | | [id number] Type: AmbulatoryRoom: [facility] 3Procedure: | | | Flexible SigmoidoscopyIndications: Suspected | | | dwkdq-aykwdw-kany diseaseProviders: CHRIS SALVADOR MD | | | (Doctor), NELLI BELCHER RN (Nurse), | | | SHU HARRIS, Supervisor [employer] (Supervisor [employer])Referring MD: PATTY | | | PILI WALTERSPRequesting [...] | | | The Olympus GIF-[id number] Endoscope #[id number] | | | was introduced through the [...] + + | Performing | Address | City/State[facility] | Phone Number | | Organization | | | | + +---------+ + + | [facility] | | | | + +---------+ + + EGD (10/17/2016 3:54 PM PDT) + + | Specimen | + + | | + + + + ---+ | Narrative | Performed At | + + ---+ | MRN: | [facility] | | [id number] Date: 10/17/2016Patient Name: Khurram | ENDOSCOPY | | LeticiaOrder #: [id number] of : 1990CSN: | | | [id number] Type: AmbulatoryRoom: [facility] 3Procedure: | | | Upper GI endoscopyIndications: Suspected iyoyd-yynius-sifo | | | disease, Nausea with vomitingProviders: CHRIS | | | MD MODESTO (Doctor), NELLI WEST, RN (Nurse), | | | SHU HARRIS, Supervisor [employer] (Supervisor [employer])Referring MD: | | | PATTY WALTERS, FNPRequesting [...] The | | | Olympus GIF-[id number] Endoscope #[id number] was introduced | | | through the [...] + + | Performing | Address | City/State[facility] | Phone Number | | Organization | | | | + +---------+ + + | [facility] | | | | + +---------+ + + NON DIRECTOR LABOR STANDARDS CYTOLOGY (10/17/2016) + + + + + + | Component | Value | Ref Range | Performed | Pathologist | | | | | At | Signature | + + + + + + | NON-DIRECTOR LABOR STANDARDS | SOURCE OF SPECIMEN:A | | [facility] [...] Tan | | | | | | CT(ASCP)Sole Leveler Machine | | | | | | Electronically [...] | + + + + + | [facility] | [address] | [place] [address] | | | PATHOLOGY | [address] [...] and | | | | | | #[id number] A. | | | | | | [...] | | | | cs determined by [facility] | | | | | | laboratories. [...] | + + + + + | [facility] | [address] | [place] [address] | | | PATHOLOGY | [address] [...]
--- OUTSIDE RECORDS SUMMARY | ~2019-05-17 | XMS | Encounter Summary ---
Demographics + + + | Address | [address] | | | [place] [address] | + + + | Home Phone [...] Team Providers + +------+ + | Care Financial Systems Manager Name | Role | Phone | [...] | | | | achieved | [facility] [place] | [id number] | | | | | remission | [address] | [place] | | | | | | Phone: | Pavilion | | | | | Procedures | [phone] | [place], [place] | | | | | Post BMT | Fax: | [address] | | | | | Auth to | [phone] | Phone: | | | | | included | | [phone] | | | | | facility, | | Fax: | | | | | diagnostics, | | [phone] | | | | | office | | | | | | | visits and | | | | | | | surgery | | | +--------+---------+ + + + + Encounter Details +--------+---------+ + + + | Date | Type | Department | Care Team | Description | +--------+---------+ + + + | 09/23/ | Office | Center for | Saunders, Em L, | Acute myeloid | | 2016 | Visit | Hematologic | PA-C [address] [facility] | leukemia (AML), M4 | | | | Malignancies at | [address] | ([facility])- primary | | | | [facility] | [place], [place] | induction failure | | | | [address] [facility] | [address] | (Primary Dx); S/P | | | | [address] Mailcode: | [phone] | allogeneic bone | | | | [facility] [place] | | marrow transplant | | | | [facility] [place], | | ([facility]) | | | | [place] [address] | | | | | | [phone] | | | +--------+---------+ + + + [...] | Blood Pressure | 118/80 | 09/24/2015 8:25 AM | | | | | PDT | | + + + + + | Pulse | 64 | 09/24/2015 8:25 AM | | | | | PDT | | + + + + + | Temperature | 36.6 C (97.9 F) | 09/24/2015 8:25 AM | | | | | PDT | | + + + + + | Respiratory Rate | 18 | 09/24/2015 8:25 AM | | | | | PDT | | + + + + + | Oxygen Saturation | 98% | 09/24/2015 8:25 AM | | | | | PDT | | + + + + + | Inhaled Oxygen | - | - | | | Concentration | | | | + + + + + | Weight | 74.5 kg (164 lb 3.9 | 09/24/2015 8:25 AM | | | | oz) | PDT | | + + + + + | Height | - | - | | + + + + + | Body Mass Index | 21.23 | 08/18/2015 4:35 PM | | | | | PST | | + + + + + documented in this encounter Patient Instructions Patient Instructions Em Saunders PA-C - 09/24/2015 8:15 AM PDT-Take your temperature regularly (3-4 x daily) and to call immediately for a temperature of 100.4 or greater. -We'll call you to adjust your Tacrolimus if necessary. -Taper your steroids down to prednisone 35 mg once daily. documented in this encounter Progress Notes Em Saunders PA-C - 09/24/2015 6:13 PM PDTFormatting of this note might be different f rom the original. 09/24/2015 [facility] Physician: Yari Garcia MD Local Oncologist: Yari Garcia MD PCP: Pending Pcp ADDITION Hematologic Malignancy: Primary refractory AML Conditioning regimen: tBuCy Date of transplant: 08/27/2015 (two day 0s) Donor: MM URD (DPB1 permissive antigen mismatch, male, [id number]) Hematologic History: Khurram Kelly is a 25 [...] his L ankle. He was evaluated at [facility] ED on 06/[address] angiogram [...] CD34, variable CD56, variable CD117, and dim VS044-vzaxp mickey; promonocyte immunophenotype (70% by flow): CD11b, [...] of primary refractory AML, currently d ay +28, s/p tBuCy conditioned MM URD SCT. Interval History: presents to clinic today for his routine scheduled visit. He is accompanied by his who is his caregiver in clinic today. He is doing well today. He reports his bejnamin h is improving, but remains itchy in some areas. Overall the rash has faded and is nearly re solved on his arms and legs. The Zofran BID is helping and he no longer has nausea and is to lerating his pills better. He denies diarrhea and has 1 BM per day that is formed. He is eat ing 3-4 meals plus snacks each day. He is taking in over 2L of PO fluids. He still has some taste alteration, but overall that is improving and he is tolerating water better. His energ y is much improved and he is walking daily. He has no new concerns today. Review of Systems: General: Denies fevers, chills, [...] Cardiovascular: No chest pain,lightheadedness,shortness of breath. Gastrointestinal: +nausea- mild Denies indigestion, vomiting, diarrhea, constipation, abdom inal pain, bloody stools or dark tarry stools. [...] TACROLIMUS 0.5 MG CAPSULE Take 1.5 mg in the AM and 1.5 mg in the PM TACROLIMUS 1 MG CAPSULE Take 1.5 mg in the AM and 1.5 mg in the PM Indications: GVHD preve ntion TRIAMCINOLONE ACETONIDE 0.1 % TOPICAL CREAM Apply to affected area three times daily. Apply thin film to affected areas. Vitals: BP 118/80 | Pulse 64 | Temp (Src) 36.6 C (97.9 F) (Oral) | RR 18 | Wt 74.5 kg (164 lb 3 .9 oz) | SpO2 98% | BMI 21.24 kg/(m^2) Pre-transplant weight 165 pounds Physical Exam: General: This is a male in no acute distress, sitting up in chair. HEENT: Sclerae anicteric. Mucosa pink and moist without erythema or exudate. Skin: Fading erythematous maculopapular rash to lower chest, abd, upper arms bilat, thighs bilat (front and back nearly resolved); ~30% BSA Chest: Lungs clear to auscultation bilat. Normal effort. CV: RRR, no murmurs. Abdomen: S/NT/ND with NABS. No HSM appreciated. Extremities: Pulses strong and equal bilaterally. No c/c/e. Neuro: Alert and oriented x 3. Grossly nonfocal exam. CVC: Central line is a Neostar catheter w/o induration or inflammation. Laboratory Results: CBC with diff: Last 72 hours (or 3 results) Recent Labs 09/24/15 0847 WBC 10.2 HB 10.3* HCT 29.4* PLT 220 MONOPERC 11.0* BASOPERC 1.0 EOSPERC 0.9* Chemistries: Last 72 Hours (or 3 results): Recent Labs 09/10/15 2300 09/11/15 2313 09/12/15 2326 09/17/15 1114 09/17/15 1130 09/21/15 1005 09/21/15 1100 09/24/15 0742 09/24/15 0815 NA 144 143 142 < > -- 138 137 -- 139 -- K 3.7 3.9 3.9 < > -- 4.7 4.0 -- 4.4 -- CL 113* 109* 109* < > -- 96* 94* -- 98 -- BICARB 21 25 25 < > -- 26 28 -- 28 -- BUN 22* 19 18 < > -- 21* 19 -- 25* -- CR 0.91 0.94 0.96 < > -- 1.0 0.9 -- 0.9 -- GLU 90 95 121* < > -- 115* 108* -- 113* -- CA 8.1* 8.0* 8.3* < > -- 9.5 9.5 -- 9.4 -- AST 18 22 19 < > 12 -- -- 11 -- 17 ALT 28 31 35 < > 31 -- -- 40 -- 56 AP 63 83 96 < > 108 -- -- 87 -- 90 TBILI 0.5 0.5 0.4 < > 0.5 -- -- 0.5 -- 0.4 TP 5.8* 6.1* 6.1* < > 7.2 -- -- 7.2 -- 6.9 ALB 2.7* 2.9* 3.0* < > 3.8 -- -- 3.8 -- 3.7 ANIONGAP 10 9 8 -- -- -- [...] 5.96 x 10^6 per kg -BMT Day: +28 Pertinent Diagnostics: -Around day + 30 repeat [...] eruption of lymphocyte recovery and early mild tpsqj-zbvgwh-asru disease. On 09/13, rash in volved ~15% BSA. Patient with progression of rash to chest, abd, back, upper arms bilat, thi ghs bilat (front and back); ~56% BSA on 09/14 and again on 09/16. Rash continues to resolve and has fades in most areas, rash now ~30% BSA. -Triamcinolone cream 0.1% TID to rash [...] -Plan for possible taper at next visit 09/26 if rash continues to resolve. -IST as [...] Zofran BID -Zofran BID as of 09/20 Loose stools: related to therapy. Last C. Diff negative 08/27. Resolved as of 09/16 clinic v isit. -imodium available PRN /Renal: No acute issues Neuro/Psych: Depression- [...] tacrolimus trough is available. -Reduce steroids by 50% from original dose, taper down prednisone to 35 mg once daily. Hernandez n for possible taper at next visit 09/26 if rash continues to resolve. -Continue Triamcinolone cream to rash TID. -Return to clinic 09/27/15 to see me, sooner prn. Em Saunders PA-C [facility] AT [address] Mailcode: [place] [address] documented in this encounter Plan [...] 2018 | Visit | Malignancy | [address] [facility] | | | | | | [address] | | | | | | [place], [place] | | | | | | [address] | | | | | | [phone] | | | | | | | | +--------+---------+ + + + + + +--------+ + + | Name | Type | Priori | Associated Diagnoses | Order Schedule | | | | ty | | | + + +--------+ + + | BMP PLUS, POC CHM | Lab - Point | Urgent | Acute myeloid | Expected: 09/27/2015 | | | of Care | | leukemia (AML), M4 | | | | Interface | | ([facility])- primary | 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 | | | | | | ([facility]) | | + + +--------+ + + documented as of this encounter Results CMV PCR QUANTITATION, PLASMA (09/27/2015 9:18 AM [...] | Act of 1988. The [facility] | | | Diagnostic Center is a fully licensed and/or accredited clinical | | | laboratory under CLIA, CAP, and the [facility]. | | + + + + + + + + | Performing | Address | City/State/Zipcode | Phone Number | | Organization | | | | + + + + + | [facility] | [address] | [place] [address] | | | DIAGNOSTIC | [address] [...] INTERPRETATION: Aspergillus galactomannan Antigen by EIA | [facility] | | | LABORATORY | | [...] | + + + + + | [employer] | [address] | [place] [address] | | | SERVICES, SPECIAL | PARK [...]
--- OUTSIDE RECORDS SUMMARY | ~2019-05-17 | XMS | Encounter Summary ---
Demographics + + + | Address | [address] | | | [place] [address] | + + + | Home Phone [...] Providers + +------+ + | Care Supervisor Carding Name | Role | Phone | + [...] | | | | | | [place], | | | | | | | [place] | | | | | | | [address] | | | | | | | Phone: | | | | | | | [phone] | | | | | | | Fax: | | | | | | | [phone] | +--------+--------+ + + + + Encounter Details +--------+ + + + + | Date | Type | Department | Care Team | Description | +--------+ + + + + | 12/15/ | Clinical | Center for | | Lab Draw | | 2016 | Support | Hematologic | | | | | Staff | Malignancies at [facility] | | | | | | [address] | | | | | | [place] Mailcode: | | | | | | [facility] | | | | | | [place], | | | | | | [place] [address] | | | | | | [phone] | | | +--------+ + + + [...] Rd | | | | | | [place], [place] | | | | | | [address] | | | | | | [phone] | | | | | | | [...] | | | PDT | transplant ([facility]) | results section. | | | [...] | | | | PDT | ([facility] [...] | | | | PDT | ([facility] [...] SORTO | [address] | [place], [place] | | | EMMA POINT OF CARE | [address] | [address] | | | TESTS | | | [...] YESSICA SORTO | [address] | [place], [place] | | | EMMA POINT OF CARE | [address] | [address] | | | TESTS | | | [...] + + + + + | [facility] | [address] | [place] [address] | | | SERVICES, INDRA | WALLY [...] | Test performed by immunoassay using [employer] [id number]. | [facility] | | Therapeutic range [...] + + + + + | [facility] | [address] | [place] [address] | | | SERVICES, SPECIAL | WALLY [...]
--- OUTSIDE RECORDS SUMMARY | ~2019-05-17 | XMS | Encounter Summary ---
Demographics + + + | Address | [address] | | | [place] [address] | + + + | Home Phone [...] Providers + +------+ + | Care Senior Reliability Engineer Name | Role | Phone | [...] 2017 | Encounter | Radiology at [facility] | [address] | | | | | [address] | [address] | | | | | [place] Mailcode: | [place], [place] | | | | | [address] Physician's | [id number] | | | | | [place], | [phone] | | | | | [place] [address] | | | | | | [phone] | | | +--------+ + + + [...] 2019 | Visit | Malignancy | [address] [facility] | | | | | | [address] | | | | | | [place], [place] | | | | | | [address] | | | | | | [phone] | | | | | | | [...] | | VIEW | | PDT | ([facility]) Status post | results section. | | [...]
--- OUTSIDE RECORDS SUMMARY | ~2019-05-17 | XMS | Encounter Summary ---
Demographics + + + | Address | [address] | | | [place] [address] | + + + | Home Phone [...] Team Providers + +------+ + | Care Jig Bore Operator Name | Role | Phone | [...] | | | | | achieved | [place], [place] | [id number] | | | | | remission | [address] | [facility] | | | | | | Phone: | Asha | | | | | Procedures | [phone] | [place], [place] | | | | | Post BMT | Fax: | [address] | | | | | Auth to | [phone] | Phone: | | | | | included | | [phone] | | | | | facility, | | Fax: | | | | | diagnostics, | | [phone] | | | | | office | | | | | | | visits and | | | | | | | surgery | | | +--------+---------+ + + + + Encounter Details +--------+---------+ + + + | Date | Type | Department | Care Team | Description | +--------+---------+ + + + | 03/15/ | Office | Center for | Yari Garcia MD | 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 | | | | Malignancies at | [address] | remission (HCC) | | | | [facility] | [place] | (Primary Dx); 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 | | | | Debi Burger Mailcode: | [phone] | marrow transplant | | | | [facility] | | (HCC); [facility] | | | | [place], | | 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) | | | | [phone] | | | +--------+---------+ + + + [...] + | Blood Pressure | 124/64 | 03/15/2017 9:12 AM | | | | | PDT | | + + + + + | Pulse | 63 | 03/15/2017 9:12 AM | | | | | PDT | | + + + + + | Temperature | 36.8 C (98.3 F) | 03/15/2017 9:12 AM | | | | | PDT | | + + + + + | Respiratory Rate | 14 | 03/15/2017 9:12 AM | | | | | PDT | | + + + + + | Oxygen Saturation | 100% | 03/15/2017 9:12 AM | | | | | PDT | | + + + + + | Inhaled Oxygen | - | - | | | Concentration | | | | + + + + + | Weight | 78.3 kg (172 lb 9.9 | 03/15/2017 9:12 AM | | | | oz) | PDT | | + + + + + | Height | - | - | | + + + + + | Body Mass Index | 21.58 | 10/18/2016 10:05 AM | | | | | PDT | | + + + + + documented in this encounter Patient Instructions Patient Instructions Yari Garcia MD - 03/15/2017 9:25 AM PDTFormatting of this note mi ght be different from the original. Please call tomorrow morning for results of your xray. I sent in prescriptions for decreased prednisone and oxycodone. We will see you back in 4 weeks. Diagnostic Visit on 03/15/2017 Component Date Value WBC POC 03/15/2017 8.9 RBC POC 03/15/2017 4.64 HGB POC 03/15/2017 15.0 HCT POC 03/15/2017 44.8 MCV POC 03/15/2017 96.6* MCH POC 03/15/2017 32.3 MCHC POC 03/15/2017 33.5 RDW SD, POC 03/15/2017 43.2 PLT POC 03/15/2017 268 MPV POC 03/15/2017 8.1* NEUTROPHIL% POC 03/15/2017 50.6 LYMPH% POC 03/15/2017 37.3 MONO %, POC 03/15/2017 9.5* EOS %, POC 03/15/2017 2.2 BASO %, POC 03/15/2017 0.4 NEUTROPHIL# POC 03/15/2017 4.5 LYMPH# POC 03/15/2017 3.3 MONO #, POC 03/15/2017 0.8 EOS #, POC 03/15/2017 0.2 BASO #, POC 03/15/2017 0.0 MAGNESIUM,PLASMA 03/15/2017 2.2 PHOSPHORUS, PLASMA (LAB) 03/15/2017 3.1 LD TOTAL, PLASMA 03/15/2017 132 LD CMNT 03/15/2017 No Hemo URIC ACID, PLASMA (LAB) 03/15/2017 3.6* BILIRUBIN DIRECT 03/15/2017 <0.1 BILI D CMNT 03/15/2017 No Hemo SODIUM, POC 03/15/2017 136 POTASSIUM, POC 03/15/2017 4.3 TOTAL CO2, POC 03/15/2017 27 CHLORIDE, POC 03/15/2017 105 GLUCOSE, POC 03/15/2017 95 CALCIUM TOTAL, POC 03/15/2017 9.5 BUN, POC 03/15/2017 10 CREATININE, POC 03/15/2017 0.8 ALK PHOS, [facility] POC 03/15/2017 84 ALT, CMP POC 03/15/2017 55 AST, CMP POC 03/15/2017 42* BILIRUBIN TOTAL, [facility] POC 03/15/2017 0.4 ALBUMIN, [facility] POC 03/15/2017 3.8 PROTEIN TOTAL, [facility] POC 03/15/2017 7.2 documented in this encounter Progress Notes Yari Garcia MD - 03/15/2017 9:25 AM PDT 03/15/17 567 days post transplant [facility] Primary [facility] MD: Yari Garcia MD Primary Oncologist: Yari Garcia MD Diagnosis: AMML, primary refractory Transplant Date: 08/27/15 Donor: MMURD (DPB1 permissive antigen mismatch, male, [id number]) Identifying Data: Khurram Gambleliat is a 26 y.o. CM with [...] his L ankle. He was evaluated at [facility]' ED on 06/[address] angiogram negative [...] CD34, variable CD56, variable CD117, and dim [id number] mickey; promonocyte immunophenotype (70% by flow): CD11b, [...] total hip arthroplasty. He is currently day +567 s/p transplant, s/p 6 cyclesof azacitidine and returns to clinic today for scheduled follow-up. Interim History: Khurram returns to clinic today and is having significant trouble with his left hip. Starting about 2 weeks ago, he noted increasing pain in the hip and radiating down his left leg anteriorly to the left knee. Now needs to walk with a cane as has concer ns that the hip will give out. Can't get into and out of low places. Notes occasional warm th and redness on skin. Hip clicks and pops. Unable to bear weight on L side. Also was treated recently for an oral abscess - saw dentist and then oral surgeon who treat ed him with a 1 week course of oral antibiotics which was helpful - symptoms now nearly reso lved. Has otherwise been well. Eating pretty normally - at normal weight. Other than issues wit h leg - has been active - trying to work out - increase muscle strength in arms and core. Eyes are slowly getting better - vision improving, still having some daily 'goop'. Complicated home situation - brother's girlfriend with addiction issues/stealing from famil y/has young baby. 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 Very stressful on all. Khurram hesitant to have his medications in the house. Locking door to their bedroo m. Review of Systems Constitutional: Negative for chills, fever and malaise/fatigue. HENT: Negative for headaches, congestion and sore throat. Eyes: Positive for blurred vision. Negative for pain. Respiratory: Negative for cough and shortness of breath. Cardiovascular: Negative for chest pain and leg swelling. Gastrointestinal: Negative for abdominal pain, diarrhea, nausea and vomiting. Genitourinary: Negative for dysuria. Musculoskeletal: Positive for joint pain and myalgias. Skin: Negative for rash. Neurological: Negative for dizziness, tingling, tremors and weakness. Endo/Heme/Allergies: Does not bruise/bleed easily. Psychiatric/Behavioral: Negative for depression. The patient is nervous/anxious. Current Outpatient Prescriptions Medication Sig acyclovir [...] babak akfast. predniSONE 10 mg oral tablet 15 mg by mouth every other day alternating [...] 1 capsule by mouth two times daily. zolpidem SR 12.5 mg oral tablet,ext release multiphase Take 1 tablet by mouth once afia y at bedtime as needed for sleep. Indications: Insomnia No current facility-administered medications for this visit. No Known Allergies Last Vitals: BP 124/64 | Pulse 63 | Temp (Src) 36.8 C (98.3 F) (Oral) | RR 14 | Wt 78.3 kg (172 lb 9.9 oz) | SpO2 100% | BMI 21.58 kg/(m^2) Physical Exam Constitutional: He is well-developed, well-nourished, and in no distress. No distress. HENT: Head: Normocephalic and atraumatic. Mouth/Throat: Oropharynx is clear and moist. No oropharyngeal exudate. Eyes: Conjunctivae are normal. Pupils are equal, round, and reactive to light. Right eye ex hibits no discharge. Left eye exhibits no discharge. No scleral icterus. Neck: Neck supple. Cardiovascular: Normal rate, regular rhythm, normal heart sounds and intact distal pulses. No murmur heard. Pulmonary/Chest: Effort normal and breath sounds normal. No respiratory distress. He has no wheezes. He has no rales. Abdominal: Soft. Bowel sounds are normal. He exhibits no distension. There is no tenderness . Musculoskeletal: He exhibits no edema. Audible hip clicking with external rotation of left hip. Antalgic gait. Lymphadenopathy: He has no cervical adenopathy. Neurological: He is alert. Skin: Skin is warm and dry. No rash noted. He is not diaphoretic. Psychiatric: Mood and affect normal. Vitals reviewed. Diagnostic Visit on 03/15/2017 Component Date Value WBC POC 03/15/2017 8.9 RBC POC 03/15/2017 4.64 HGB POC 03/15/2017 15.0 HCT POC 03/15/2017 44.8 MCV POC 03/15/2017 96.6* MCH POC 03/15/2017 32.3 MCHC POC 03/15/2017 33.5 RDW SD, POC 03/15/2017 43.2 PLT POC 03/15/2017 268 MPV POC 03/15/2017 8.1* NEUTROPHIL% POC 03/15/2017 50.6 LYMPH% POC 03/15/2017 37.3 MONO %, POC 03/15/2017 9.5* EOS %, POC 03/15/2017 2.2 BASO %, POC 03/15/2017 0.4 NEUTROPHIL# POC 03/15/2017 4.5 LYMPH# POC 03/15/2017 3.3 MONO #, POC 03/15/2017 0.8 EOS #, POC 03/15/2017 0.2 BASO #, POC 03/15/2017 0.0 MAGNESIUM,PLASMA 03/15/2017 2.2 PHOSPHORUS, PLASMA (LAB) 03/15/2017 3.1 LD TOTAL, PLASMA 03/15/2017 132 LD CMNT 03/15/2017 No Hemo URIC ACID, PLASMA (LAB) 03/15/2017 3.6* TACROLIMUS (FK 506) 03/15/2017 2.4* BILIRUBIN DIRECT 03/15/2017 <0.1 BILI D CMNT 03/15/2017 No Hemo SODIUM, POC 03/15/2017 136 POTASSIUM, POC 03/15/2017 4.3 TOTAL CO2, POC 03/15/2017 27 CHLORIDE, POC 03/15/2017 105 GLUCOSE, POC 03/15/2017 95 CALCIUM TOTAL, POC 03/15/2017 9.5 BUN, POC 03/15/2017 10 CREATININE, POC 03/15/2017 0.8 ALK PHOS, CMP POC 03/15/2017 84 ALT, CMP POC 03/15/2017 55 AST, CMP POC 03/15/2017 42* BILIRUBIN TOTAL, CMP POC 03/15/2017 0.4 ALBUMIN, CMP POC 03/15/2017 3.8 PROTEIN TOTAL, CMP POC 03/15/2017 7.2 Assessment/Plan: 1. Hematology: Khurram Kelly is currentlyday +567 s/p tBuCy-conditioned unr elated donor PBSC transplant [...] germline polymorphism of donor origin). CBC is normala. He contin ues without evidence of disease by peripheral smear. --> continue CBC q2-4 weeks and prn --> no additional marrow studies indicated providing peripheral counts remain stable 2. 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 He initially responded but flared during taper. He also developed low-level nausea and abd discomfort concerning for GvHD, emp irically treated with oral non-absorbables with resolution. - He had tapered prednisone to 10 mg po daily when he developed a rash for which he was see n in the ED in [place] in late 01/21. Prednisone was increased back [...] and mild GvHD of the rectum. --> TODAY: asymptomatic with resolution of transaminitis. Continue MMF ER, tacrolimus. De crease prednisone to 10 mg every day --> continue to f/u with ophthalmology per their recommendations --> continue ursodiol 300 mg bid - if normal LFTs/BILI next visit, will d/c --> avoid ETOH, acetaminophen and nephrotoxins 3. Infectious Disease: Afebrile without localizing s/s infection. He continues prophylact ic acyclovir and bactrim. Completed a 3-week course of fluconazole 400 mg po daily on 11/12/16 for findings of esophageal candidiasis His most recent immune reconstitution panel [facility] 08/31/16 showed normal total T cells with relative decrease in CD4+ margarita cells, normal total NK cells, normal total B cells with relative decrease in non-switched memory B cells a nd minimal immune activation. CD4 count 420. Continues post-transplant vaccines -->continue prophylactic antimicrobials --> next vaccines due 04/24 4. Fluid, Electrolyte and Nutrition: Appetite is good, feels he's eating well and at norm al weight. Adequate po fluid intake. No c/o [...] feels he's doing very well post-surgery. --> Xray ordered today --> Dr. Jeffers's clinic contacted and will contact pt directly re next steps/f/u --> oxycodone prescription given in clinic 6. Psychosocial: Hx anxiety, well controlled with current xanax dosing. 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 7. Follow up --> F/u at [facility] in 4 weeks, sooner if interval complications. Yari Garcia MD, MS Band Bookerslat basket maker helper [facility] [address] [place] [address] documented in this enc ounter Plan of [...] Rd | | | | | | [place], [place] | | | | | | [address] | | | | | | [phone] | | | | | | | | +--------+---------+ + + + documented as of this encounter Procedures + +--------+ + + + | Procedure Name | Priori | Date/Time | Associated Diagnosis | Comments | | | ty | | | | + +--------+ + + + | LAB REPORTS | | 03/30/2017 | | Results for this | | | | 12:00 AM | | procedure are in the | | | | PDT | | results section. | + +--------+ + + + documented in this encounter Results LAB REPORTS (03/30/2017 12:00 AM PDT) + + + | Narrative | Performed At | + + + | | | + + + X-RAY PELVIS 1 VIEW (03/15/2017 11:15 AM [...] | | | + +---------+ + + X-RAY HIP 2 VIEWS RIGHT (03/15/2017 11:15 [...]
--- OUTSIDE RECORDS SUMMARY | ~2019-05-17 | XMS | Encounter Summary ---
Demographics + + + | Address | [address] | | | [place] [address] | + + + | Home Phone [...] Team Providers + +------+ + | Care Aerospace Stress Engineer Name | Role | Phone | + +------+ + | Pending Pcp Addition | PCP | Unavailable | + +------+ + Reason for Visit + + + | Reason | Comments | + + + | Lab Draw | [facility] | + + + Office Visit - [...] | | | | | remission | [address] | [place] | | | | | | Phone: | [facility] | | | | | Procedures | [phone] | [place], [place] | | | | | Post BMT | Fax: | [address] | | | | | Auth to | [phone] | Phone: | | | | | included | | [phone] | | | | | facility, | | Fax: | | | | | diagnostics, | | [phone] | | | | | office | | | | | | | visits and | | | | | | | surgery | | | +--------+---------+ + + + + Encounter Details +--------+ + + + + | Date | Type | Department | Care Team | Description | +--------+ + + + + | 10/27/ | Clinical | [facility] for | | Lab Draw ([facility]) | | 2016 | Support | Hematologic | | | | | Staff | Malign[facility] at [facility] | | | | | | [address] | | | | | | Wally [place] Mailcode: | | | | | | [facility] [place] | | | | | | [place], | | | | | | [place] [address] | | | | | | [phone] | | | +--------+ + + + [...] + + + | Blood Pressure | 106/74 | 10/28/2015 11:29 AM | | | | | PDT | | + + + + + | Pulse | 74 | 10/28/2015 11:29 AM | | | | | PDT | | + + + + + | Temperature | 36.5 C (97.7 F) | 10/28/2015 11:29 AM | | | | | PDT | | + + + + + | Respiratory Rate | 20 | 10/28/2015 11:29 AM | | | | | PDT | | + + + + + | Oxygen Saturation | - | - | | + + + + + | Inhaled Oxygen | - | - | | | Concentration | | | | + + + + + | Weight | 79.1 kg (174 lb 4.8 | 10/28/2015 11:29 AM | | | | oz) | PDT | | + + + + + | Height | - | - | | + + + + + | Body Mass Index | 22.53 | 08/18/2015 4:35 PM | | | | | PST | | + + + + + documented in this encounter Progress Notes Marie Peres RN - 10/28/2015 11:51 AM PDTPatient ambulated into clinic with for carson eduled lab draw. He reports to be feeling well today. Denies dizziness, fever, chills, chest pain, SOB, nausea, diarrhea, constipation, bleeding, bruising and rash. He states that he h ad some loose stools today due to taking milk of magnesium for constipation but believes it has resolved. Patient reports to be eating adequately and drinking 2L of fluid daily. [facility] accessed per protocol. Good blood return noted. Appropriate waste discarded. Lab s drawn and sent. [facility] pulse flushed with 20 mL NS and 5 mL of 10 units/mL Heparin. No supportive care indicated today. Patient discharged [...] [place] | | | | | | [address] | | | | | | [phone] | | | | | | | | +--------+---------+ + + + documented as of this encounter Procedures + +--------+ + + + | Procedure Name | Priori | Date/Time | Associated Diagnosis | Comments | | | ty | | | | + +--------+ + + + | BMP + MAG, POC CHM | Routin | 10/28/2015 | Acute myeloid | Results for this | | | e | 11:49 AM | leukemia (AML), M4 | procedure are in the | | | | PDT | ([facility])- primary | results section. | | | | | induction failure | | + +--------+ + + + | CBC+DIFF,POC | Routin | 10/28/2015 | Acute myeloid | Results for this | | | e | 11:49 AM | leukemia (AML), M4 | procedure are in the | | | | PDT | ([facility])- primary | results section. | | | | | induction failure | | + +--------+ + + + | TACROLIMUS, WHOLE | Routin | 10/28/2015 | Acute myeloid | Results for this | | BLOOD | e | 11:36 AM | leukemia (AML), M4 | procedure are in the | | | | PDT | ([facility])- primary | results section. | | | | | induction failure | | + +--------+ + + + | LIVER SET | Routin | 10/28/2015 | Acute myeloid | Results for this | | (AST,ALT,BILI | e | 11:32 AM | leukemia (AML), M4 | procedure are in the | | TOTAL,BILI | | PDT | (HCC)- primary | results section. | | DIRECT,ALK | | | induction failure | | | PHOS,ALB,PROT TOTAL) | | | | | + +--------+ + + + documented in this encounter Results BMP + MAG, POC CHM (10/28/2015 11:49 AM PDT) + +---------+ + + + [...] + + + | TOTAL CO2, | 31 (H) | 22 - 29 mmol/L | [...] + + + | LDH, POC | 200 | 0 - 206 U/L | [facility] | | | | | | [facility] | | | | | | [facility] | | | | | | OF CARE | | | | | | TESTS | | + +---------+ + + + | MAGNESIUM, | 2.4 | 1.8 - 2.5 mg/dL [...] [facility] | [address] | [place], [place] | | | [facility] OF CARE | [address] | [address] | | | TESTS | | | | + + + + + CBC+DIFF,POC (10/28/2015 11:49 AM PDT) + + + + + [...] + + + | RBC POC | 3.46 (L) | 4.50 - 6.00 | [facility] [...] + + + | HCT POC | 34.5 (L) | 41.0 - 53.0 % | [facility] | | | | | | [facility] | | | | | | [facility] | | | | | | OF CARE | | | | | | TESTS | | + + + + + + | MCV POC | 99.7 (H) | 80.0 - 96.0 fL | [facility] | | | | | | [facility] | | | | | | [facility] | | | | | | OF CARE | | | | | | TESTS | | + + + + + + | MCH POC | 33.2 (H) | 28.5 - 32.3 pg | [...] + + | RDW SD, POC | 61.3 (H) | 35.1 - 46.3 fL | [facility] | | | | | | [facility] | | | | | | [facility] | | | | | | OF CARE | | | | | | TESTS | | + + + + + + | PLT POC | 91 (L) | 150 - 400 | [facility] [...] + + + + | NEUTROPHIL% | 58.7 | 50.0 - 70.0 % | [facility] - | | | POC | | | [facility] | | | | | | [facility] | | | | | | OF CARE | | | | | | TESTS | | + + + + + + | LYMPH% POC | 29.2 | 18 - 42 % | [facility] | | | | | | [facility] | | | | | | [facility] | | | | | | OF CARE | | | | | | TESTS | | + + + + + + | MONO %, POC | 9.4 (H) | 3.5 - 9.0 % | [facility] - | | | | | | [facility] | | | | | | [facility], POINT | | | | | | OF CARE | | | | | | TESTS | | + + + + + + | EOS %, POC | 2.4 | 1.0 - 3.0 % | [facility] [...] + | [facility] | [address] | [place], [place] | | | [facility]INT OF CARE | [facility] | [address] | | | TESTS | | | | + + + + + TACROLIMUS, WHOLE BLOOD (10/28/2015 11:36 AM PDT) + +-------+ + + + | Component | Value | Ref Range | Performed | Pathologist | | | | | At | Signature | + +-------+ + + + | TACROLIMUS | 7.9 | 5.0 - 15.0 | [facility] | [...] [facility] | [address] | [place] [address] | | | SERVICES, SPECIAL | [address] | | | | IMM + COAG | | | | + + + + + LIVER SET (AST,ALT,BILI TOTAL,BILI DIRECT,ALK PHOS,ALB,PROT TOTAL) (10/28/2015 11:32 AM PDT ) + +---------+ + + [...] | [address] | [place] [address] | | | SERVICES, INDRA | [address] | | | + + + + + documented in this encounter Visit Diagnoses + + | Diagnosis | + + | Acute myeloid leukemia (AML), M4 (HCC)- primary induction failure - Primary | + + documented in this encounter"
--- OUTSIDE RECORDS SUMMARY | ~2019-05-17 | XMS | Encounter Summary ---
Demographics + + + | Address | [address] | | | [place] [address] | + + + | Home Phone [...] Team Providers + +------+ + | Care Coal Cager Name | Role | Phone | + [...] | | | | | achieved | [place], [place] | [id number] | | | | | remission | [address] | [place] | | | | | | Phone: | [place] | | | | | Procedures | [phone] | [place], [place] | | | | | Post BMT | Fax: | [address] | | | | | Auth to | [phone] | Phone: | | | | | included | | [phone] | | | | | facility, | | Fax: | | | | | diagnostics, | | [phone] | | | | | office | | | | | | | visits and | | | | | | | surgery | | | +--------+---------+ + + + + Encounter Details +--------+---------+ + + + | Date | Type | Department | Care Team | Description | +--------+---------+ + + + | 02/15/ | Office | [facility] for | Yari Garcia MD | 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 | | | | Malignancies at | [address] | remission (HCC) | | | | [facility] | [place], [place] | (Primary Dx); S/P | | | | [address] | [address] | allogeneic bone | | | | [place] Mailcode: | [phone] | marrow transplant | | | | [facility] [place] | | ([facility]) | | | | [place], | | | | | | [place] [address] | | | | | | [phone] | | | +--------+---------+ + + + [...] + + + | Blood Pressure | 121/61 | 02/15/2017 10:38 AM | | | | | PDT | | + + + + + | Pulse | 63 | 02/15/2017 10:38 AM | | | | | PDT | | + + + + + | Temperature | 36.8 C (98.3 F) | 02/15/2017 10:38 AM | | | | | PDT | | + + + + + | Respiratory Rate | 16 | 02/15/2017 10:38 AM | | | | | PDT | | + + + + + | Oxygen Saturation | 99% | 02/15/2017 10:38 AM | | | | | PDT | | + + + + + | Inhaled Oxygen | - | - | | | Concentration | | | | + + + + + | Weight | 81.5 kg (179 lb 10.8 | 02/15/2017 10:38 AM | | | | oz) | PDT | | + + + + + | Height | - | - | | + + + + + | Body Mass Index | 22.46 | 10/18/2016 10:05 AM | | | | | PDT | | + + + + + documented in this encounter Patient Instructions Patient Instructions Christina Hernandez RN - 02/15/2017 10:25 AM PDTJeremiah Please remember you need to protect your skin--use high SPF sun screen and keep covered as much as possible. We will refill the myfortic today Prednisone decrease to 15 mg alternating with 10 mg Everything else stays the same Next lab and visit here in a month. Check out at the front end software engineer today and make your next appointments. You can also call the flaco whitehead at [phone]. 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 He was evaluated at [facility] ED on 06/[address] angiogram negative [...] acute myelomonocytic leukemia. He was referred to [facility] for further evaluation and man agement of his newly dx'd AML. Pt was admitted to [facility] on 05/26/15. Peripheral blood was [...] CD34, variable CD56, variable CD117, and dim [id number] mickey; promonocyte immunophenotype (70% by flow): CD11b, [...] total hip arthroplasty. He is currently day +539 s/p transplant, s/p 6 cyclesof azacitidine and returns to clinic today for scheduled follow-up. Interim History: Khurram returns to clinic today for ongoing follow up after returning h ome to [place]. He is doing well overall - exercising regularly, picking up some old hobb ies (fishing, golf, swimming). Living with his parents which has been stressful for both chelly jerome and Lynne. They are thinking about having another kid- but have not started trying yet. He does have sperm stored. No issues with mouth. Eyes are slowly improving - right eye is less blurry, left eye remai ns problematic. Eyes have been very sensitive to the smoke in the air recently. Had some sun exposure on shoulders recently- concerned that it might have caused some GVHD changes. Review of Systems Constitutional: Negative for [...] visit. No Known Allergies Last Vitals: BP 121/61 | Pulse 63 | Temp (Src) 36.8 C (98.3 F) (Oral) | RR 16 | Wt 81.5 kg (179 lb 10.8 oz) | SpO2 99% | BMI 22.46 kg/(m^2) Physical Exam Constitutional: He is well-developed, [...] affect normal. Vitals reviewed. Diagnostic Visit on 02/15/2017 Component Date Value HEP B SURFACE AB QUAL 02/15/2017 Detected* WBC POC 02/15/2017 7.7 RBC POC 02/15/2017 4.27* HGB POC 02/15/2017 14.0 HCT POC 02/15/2017 42.4 MCV POC 02/15/2017 99.3* MCH POC 02/15/2017 32.8* MCHC POC 02/15/2017 33.0 RDW SD, POC 02/15/2017 46.1 PLT POC 02/15/2017 238 MPV POC 02/15/2017 8.0* NEUTROPHIL% POC 02/15/2017 54.1 LYMPH% POC 02/15/2017 33.1 MONO %, POC 02/15/2017 10.0* EOS %, POC 02/15/2017 2.5 BASO %, POC 02/15/2017 0.3 NEUTROPHIL# POC 02/15/2017 4.2 LYMPH# POC 02/15/2017 2.5 MONO #, POC 02/15/2017 0.8 EOS #, POC 02/15/2017 0.2 BASO #, POC 02/15/2017 0.0 SODIUM, POC 02/15/2017 136 POTASSIUM, POC 02/15/2017 4.2 TOTAL CO2, POC 02/15/2017 26 CHLORIDE, POC 02/15/2017 101 GLUCOSE, POC 02/15/2017 106* CALCIUM TOTAL, POC 02/15/2017 9.3 BUN, POC 02/15/2017 9 CREATININE, POC 02/15/2017 0.7 LDH, POC 02/15/2017 121 MAGNESIUM, POC 02/15/2017 2.0 ALBUMIN, PLASMA (LAB) 02/15/2017 3.9 BILIRUBIN TOTAL 02/15/2017 0.3 BILIRUBIN DIRECT 02/15/2017 <0.1 ALK PHOS 02/15/2017 84 AST(SGOT) 02/15/2017 19 ALT (SGPT) 02/15/2017 30 TOTAL PROTEIN, PLASMA (L* 02/15/2017 6.9 AST CMNT 02/15/2017 No Hemo BILI T CMNT 02/15/2017 No Hemo BILI D CMNT 02/15/2017 No Hemo TACROLIMUS (FK 506) 02/15/2017 2.3* Assessment/Plan: 1. Hematology: Khurram [place] is currentlyday +539 s/p tBuCy-conditioned unr elated donor PBSC transplant [...] indicated providing peripheral counts remain stable 2. 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 He initially responded but flared during taper. He also developed low-level nausea and abd discomfort concerning for GvHD, emp irically treated with oral non-absorbables with resolution. - He had tapered prednisone to 10 mg po daily when he developed a rash for which he was see n in the ED in [place] in late 01/21. Prednisone was increased back [...] GvHD of the rectum. - TODAY: asymptomatic with resolution of transaminitis. Continue MMF ER, tacrolimus. Decr ease prednisone to 15 mg every other day alt with 10 mg every other day --> continue to f/u [...] candidiasis His most recent immune reconstitution panel [facility] 08/31/16 showed normal total T [...] friendships with other young survivors. Back in [place] now, different set of life st ressors - considering moving back to [place] when Lynne applies to nursing school --> [...] etc. 7. Follow up --> F/u at [facility] in 4 weeks, sooner if interval complications. Yari Garcia MD, MS Regulatory Compliance Directorinvestment recovery technician [facility] [address] [place] [address] documented in this enc ounter Plan of [...] [address] | | | | | | [place], [place] | | | | | | [address] | | | | | | [phone] | | | | | | | | +--------+---------+ + + + documented as of this encounter Results CMP, POC (BMP+LFT) (03/15/2017 9:46 AM PDT) + +--------+ + + + | [...] +--------+ + + + | POTASSIUM, | 4.3 [...] +--------+ + + + | CHLORIDE, | 105 | 97 - 108 mmol/L | [facility] - | | | POC | | | [facility] | | | | | | [facility], POINT | | | | | | OF CARE | | | | | | TESTS | | + +--------+ + + + | GLUCOSE, | 95 | 70 - 99 mg/dL | [facility] - | | | POC | | | [facility] | | | | | | [facility], POINT | | | | | | OF CARE | | | | | | TESTS | | + +--------+ + + + | CALCIUM | 9.5 [...] +--------+ + + + | CREATININE, | 0.8 [...] + + + | ALT, CMP | 55 | 0 - 60 U/L | [facility] - | | | POC | | | [place] | | | | | | [place], POINT | | | | | | OF CARE | | | | | | TESTS | | + +--------+ + + + | AST, CMP | 42 (H) | 0 - 41 U/L | [facility] - | | | POC | | | [facility] | | | | | | [place], POINT | | | | | | OF CARE | | | | | | TESTS | | + +--------+ + + + | BILIRUBIN | 0.4 [...] +--------+ + + + | PROTEIN | 7.2 [...] [facility] | [address] | [place], [place] | | | RUTHIE CARTER OF CARE | [address] | [address] | | | TESTS | | | | + + + + + CBC+DIFF,POC (03/15/2017 9:27 AM PDT) + + + + + + | Component | Value | Ref Range | Performed | Pathologist | | | | | At | Signature | + + + + + + | WBC POC | 8.9 | 3.5 - 10.8 | [facility] - | | | | | 10*3/uL | [facility] | | | | | | RUTHIE CARTER | | | | | | OF CARE | | | | | | TESTS | | + + + + + + | RBC POC | 4.64 | 4.50 - 6.00 | [facility] - | | | | | 10*6/uL | [facility] | | | | | | RUTHIE CARTER | | | | | | OF CARE | | | | | | TESTS | | + + + + + + | HGB POC | 15.0 | 13.5 - 17.5 | [facility] - | | | | | g/dL | [facility] | | | | | | RUTHIE CARTER | | | | | | OF CARE | | | | | | TESTS | | + + + + + + | HCT POC | 44.8 | 41.0 - 53.0 % | [facility] - | | | | | | [place] | | | | | | RUTHIE CARTER | | | | | | OF CARE | | | | | | TESTS | | + + + + + + | MCV POC | 96.6 (H) | 80.0 - 96.0 fL | [...] + + | RDW SD, POC | 43.2 | 35.1 - 46.3 fL | [facility] - | | | | | | [facility] | | | | | | RUTHIE CARTER | | | | | | OF CARE | | | | | | TESTS | | + + + + + + | PLT POC | 268 | 150 - 400 | [facility] - [...] + + | MONO %, POC | 9.5 (H) | 3.5 - 9.0 % | [...] + + + + | NEUTROPHIL# | 4.5 | 1.8 - 7.7 | [facility] - | | | POC | | 10*3/uL | [facility] | | | | | | [facility], POINT | | | | | | OF CARE | | | | | | TESTS | | + + + + + + | LYMPH# POC | 3.3 | 1.0 - 4.8 | [facility] - [...] - [facility] | [address] | [place], [place] | | | [facility] POINT OF CARE | [address] | [address] | | | TESTS | | | | + + + + + BILIRUBIN DIRECT (03/15/2017 9:09 AM PDT) + +---------+ + + + [...] [facility] | [address] | [place] [address] | | | SERVICES, CORE | [address] | | | + + + + + TACROLIMUS, WHOLE BLOOD (03/15/2017 9:09 AM PDT) + +---------+ + + + | Component | Value | Ref Range | Performed | Pathologist | | | | | At | Signature | + +---------+ + + + | TACROLIMUS | 2.4 (L) | 5.0 - 15.0 | [facility] [...] At | + + + | Test Performed by [facility]. Test performed by immunoassay using Blanton | [facility] | | Black Pickler i2000. . Samples for analysis of Tacrolimus should be | LABORATORY | | collected 30 minutes to 1 hour prior to the next dose so that the | SERVICES, | | measured concentration of drug represents trough levels. Some other | SPECIAL IMM + | | factors influencing therapeutic range, dose administered, and result | COAG | | interpretation include time since transplantation, the organ | | | transplanted, co-administration of other immunosuppressants [...] [facility] | [address] | [place] [address] | | | SPECIAL KOLE | [address] | | | | IMM + COAG | | | | + + + + + URIC ACID, PLASMA (03/15/2017 9:09 AM PDT) + +---------+ + + + [...] [facility] | [address] | [place] [address] | | | SERVICES, CORE | [address] | | | + + + + + LDH TOTAL, PLASMA (03/15/2017 9:09 AM PDT) + +---------+ + + + | Component | Value | Ref Range | Performed | Pathologist | | | | | At | Signature | + +---------+ + + + | LD TOTAL, | 132 | <=250 U/L | [facility] | | [...] [facility] | [address] | [place] [address] | | | KOLE, INDRA | [address] | | | + + + + + PHOSPHORUS, PLASMA (03/15/2017 9:09 AM PDT) + +-------+ + + [...] [facility] | [address] | [place] [address] | | | SERVICES, CORE | [address] | | | + + + + + MAGNESIUM, PLASMA (03/15/2017 9:09 AM PDT) + +-------+ + + + | Component | Value | Ref Range | Performed | Pathologist | | | | | At | Signature | + +-------+ + + + | MAGNESIUM,P | 2.2 | 1.6 - 2.6 mg/dL | [facility] | | | [facility] | | | LABORATORY | | | | | | SERVICES, | | | | | | CORE | | + +-------+ + + + + + | Specimen | + + | Blood - Blood | | (substance) | + + + + + | Narrative | Performed At | + + + | Reference range change effective 01/30/2013. | [facility] | | | LABORATORY | | | INDRA SHARIF | + + + + + + + + | Performing | Address | City/State/Zipcode | Phone Number | | Organization | | | | + + + + + | [facility] | [address] | [place] [address] | | | KOLE, INDRA | [address] [...]
--- OUTSIDE RECORDS SUMMARY | ~2019-05-17 | XMS | Encounter Summary ---
Demographics + + + | Address | [address] | | | [place] [address] | + + + | Home Phone [...] Providers + +------+ + | Care Principal Clerk Typist Name | Role | Phone | + +------+ + | Zayda Hinton | PCP | | + +------+ + Encounter Details +--------+------+ + + + | Date | Type | Department | Care Team | Description | +--------+------+ + + + | 05/15/ | Lab | Laboratory at [facility] | | 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 | | [address] | | stem cell transplant | | | | [place], [place] | | ([facility]); GVHD (graft | | | | [address] | | versus host disease) | | | | [phone] | | ([facility]) | +--------+------+ + + + Social History [...] [address] | | | | | | [place], [place] | | | | | | [address] | | | | | | [phone] | | | | | | | [...] + + documented in this encounter Results [facility] - COMPLETE METABOLIC SET (05/15/2019 11:53 AM [...] | | | LABORATORY | | | [facility] | | | SERVICES, | | | [...] + + + + | [facility] | [address] | [place] [address] | | | SERVICES, [place] [facility] | | | | | HEALTH + HEALING | | | | + + + + + CBC AND AUTO DIFF - CH (05/15/2019 11:53 AM PST) + + + [...] included in the neutrophil count. 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
--- OUTSIDE RECORDS SUMMARY | ~2019-05-17 | XMS | Encounter Summary ---
Demographics + + + | Address | [address] | | | [place] [address] | + + + | Home Phone [...] Team Providers + +------+ + | Care Jackscrew Worker Name | Role | Phone | + +------+ + | No Pcp Per Patient | PCP | Unavailable | + +------+ + Encounter Details +--------+------+ + + + | Date | Type | Department | Care Team | Description | +--------+------+ + + + | 10/02/ | Lab | Laboratory, | | S/P allogeneic bone | | 2016 | | Specimen Collection | | marrow transplant | | | | at [facility] 3rd Floor | | ([facility]) | | | | [address] | | | | | | [place], | | | | | | [place] [address] | | | | | | [phone] | | | +--------+------+ + + + [...] 2019 | Visit | Malignancy | [address] | | | | | | [address] | | | | | | [place], [place] | | | | | | [address] | | | | | | [phone] | | | | | | | | +--------+---------+ + + + documented as of this encounter Procedures + +--------+ + + + | Procedure Name | Priori | Date/Time | Associated Diagnosis | Comments | | | ty | | | | + +--------+ + + + | CBC AND AUTO DIFF | Urgent | 10/02/2016 | S/P allogeneic | Results for this | | | | 8:33 AM | bone marrow | procedure are in the | | | | PDT | transplant ([facility]) | results section. | + +--------+ + + + | CBC, WITH | Urgent | 10/02/2016 | S/P allogeneic | Results for this | | DIFFERENTIAL | | 8:33 AM | bone marrow | procedure are in the | | | | PDT | transplant ([facility]) | results section. | + +--------+ + + + | COMPLETE METABOLIC | Urgent | 10/02/2016 | S/P allogeneic | Results for this | | SET | | 8:33 AM | bone marrow | procedure are in the | | (NA,K,CL,CO2,BUN,CRE | | PDT | transplant ([facility]) | results section. | | AT,GLUC,CA,AST,ALT,B | | | | | | YUN TOTAL,ALK | | | | | | PHOS,ALB,PROT TOTAL) | | | | | + +--------+ + + + | TACROLIMUS, WHOLE | Urgent | 10/02/2016 | S/P allogeneic | Results for this | | BLOOD | | 8:33 AM | bone marrow | procedure are in the | | | | PDT | transplant ([facility]) | results section. | + +--------+ + + + | PHOSPHORUS, PLASMA | Urgent | 10/02/2016 | S/P allogeneic | Results for this | | | | 8:33 AM | bone marrow | procedure are in the | | | | PDT | transplant ([facility]) | results section. | + +--------+ + + + | BILIRUBIN DIRECT | Urgent | 10/02/2016 | S/P allogeneic | Results for this | | | | 8:33 AM | bone marrow | procedure are in the | | | | PDT | transplant ([facility]) | results section. | + +--------+ + + + | URIC ACID, PLASMA | Urgent | 10/02/2016 | S/P allogeneic | Results for this | | | | 8:33 AM | bone marrow | procedure are in the | | | | PDT | transplant ([facility]) | results section. | + +--------+ + + + | MAGNESIUM, PLASMA | Urgent | 10/02/2016 | S/P allogeneic | Results for this | | | | 8:33 AM | bone marrow | procedure are in the | | | | PDT | transplant ([facility]) | results section. | + +--------+ + + + | LDH TOTAL, PLASMA | Urgent | 10/02/2016 | S/P allogeneic | Results for this | | | | 8:33 AM | bone marrow | procedure are in the | | | | PDT | transplant ([facility]) | results section. | + +--------+ + + + documented in this encounter Results CBC AND AUTO DIFF (10/02/2016 8:33 AM PDT) + + + + + + | Component | Value | Ref Range | Performed | Pathologist | | | | | At | Signature | + + + + + + | WHITE CELL | 7.94 | 3.50 - 10.80 | [facility] | | | COUNT | | K/cu mm | LABORATORY | | | | | | SERVICES, | | | | | | CORE | | + + + + + + | RED CELL | 3.94 (L) | 4.50 - 6.00 | [facility] | | | COUNT | | M/cu mm | LABORATORY | | | | | | SERVICES, | | | | | | CORE | | + + + + + + | HEMOGLOBIN | 12.4 (L) | 13.5 - 17.5 | [facility] | | | | | g/dL | LABORATORY | | | | | | SERVICES, | | | | | | CORE | | + + + + + + | HEMATOCRIT | 37.2 (L) | 41.0 - 53.0 [...] + + + | RDW SD | 46.1 | 35.1 - 46.3 fL | [facility] | | | | | | LABORATORY | | | | | | SERVICES, | | | | | | CORE | | + + + + + + | PLATELET | 259 | 150 - 400 K/cu | [facility] [...] + + + + | NEUTROPHIL | 46.6 (L) | 50.0 - 70.0 % | [facility] | | | % | | | LABORATORY | | | | | | SERVICES, | | | | | | CORE | | + + + + + + | LYMPHOCYTE | 27.7 | 18.0 - 42.0 % | [facility] | | | % | | | LABORATORY | | | | | | SERVICES, | | | | | | CORE | | + + + + + + | MONOCYTE % | 8.9 | 3.5 - 9.0 % | [facility] | | | | | | LABORATORY | | | | | | SERVICES, | | | | | | CORE | | + + + + + + | EOS % | 16.0 (H) | 1.0 - 3.0 % | [...] + + + | IG% | 0.3Comment: Immature | 0.0 - 0.6 % | [...] + + + + | NEUTROPHIL | 3.70 | 1.80 - 7.70 | [facility] | | | # | | K/cu mm | LABORATORY | | | | | | SERVICES, | | | | | | CORE | | + + + + + + | LYMPHOCYTE | 2.20 | 1.00 - 4.80 | [facility] | [...] + + + | EOS # | 1.27 (H) | 0.00 - 0.50 | [facility] [...] [facility] | [address] | [place] [address] | | | SERVICES, CORE | [address] | | | + + + + + TACROLIMUS, WHOLE BLOOD (10/02/2016 8:33 AM PDT) [...] | Test performed by immunoassay using Blanton Complex Director i2000. . | [facility] | | Samples [...] [facility] | [address] | [place] [address] | | | SERVICES, SPECIAL | [address] [...] | + + + + + | [facility] | [address] | [place] [address] | | | SERVICES, CORE | [address] [...] [facility] | [address] | [place] [address] | | | SERVICES, CORE | P[address] [...] | + + + + + | [facility] | [address] | [place] [address] | | | SERVICES, CORE | [address] [...] [facility] | [address] | [place] [address] | | | KOLE, INDRA | [address] [...] [facility] | [address] | [place] [address] | | | SERVICES, CORE | [address] [...] + + + + + | [facility] | [address] | [place] [address] | | | SERVICES, CORE | [address] | | | + + + + + documented in this encounter Visit Diagnoses + + | Diagnosis | + + | 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
--- OUTSIDE RECORDS SUMMARY | ~2019-05-17 | XMS | Encounter Summary ---
Demographics + + + | Address | [address] | | | [place] [address] | + + + | Home Phone [...] Team Providers + +------+ + | Care Developer Relations Manager Name | Role | Phone | [...] + | Telephone | [facility] | Chris [place], | Follow-up encounter | | 2017 | | [facility] [address] | | | | | | [place] Mailcode: | | | | | | [facility] | | | | | | Health and Healing, | | | | | | [address] | | | | | | [place], [place] | | | | | | [address] | | | | | | [phone] | | | +--------+ + + + [...] [place] | | | | | | [address] | | | | | | [phone] | | | | | | | | +--------+---------+ + + + documented as of this encounter Visit Diagnoses Not on filedocumented in this encounter"
--- OUTSIDE RECORDS SUMMARY | ~2019-05-17 | XMS | Encounter Summary ---
Demographics + + + | Address | [address] | | | [place] [address] | + + + | Home Phone [...] Team Providers + +------+ + | Care Serology Teacher Name | Role | Phone | + +------+ + | Pending Pcp Addition | PCP | Unavailable | + +------+ + Reason for Visit + + + | Reason | Comments | + + + | Dressing change | Neostar | + + + Encounter Details +--------+ + + + + | Date | Type | Department | Care Team | Description | +--------+ + + + + | 10/26/ | Clinical | Center for | | Dressing change | | 2015 | Support | Hematologic | | ([facility]) | | | Staff | Malignancies at [facility] | | | | | | [address] | | | | | | [place] Mailcode: | | | | | | [id number] [place] | | | | | | [place], | | | | | | [place] [address] | | | | | | [phone] | | | +--------+ + + + [...] encounter Progress Notes Marie Peres RN - 10/27/2015 2:28 PM PDTPatient in clinic to pharmacy picking tech prescription and n otes that he has been sweating and his central line dressing is saturated. Patient added on for dressing change. Neostar intact to left anterior chest wall without erythema or induration. Dressing remove d, skin intact without s/s exit site or tunnel infection. Using a Central Line Dressing Lora nge kit, site cleansed with Chloraprep. Skin prep applied prior to dressing application. B iopatch applied with Duoderm dressing. Positive pressure valves changed to each port. All lumens pulse flushed with 10 mL NS. Patient tolerated procedure without difficulty. Patient discharged ambulatory from clinic. documented in [...] [address] | | | | | | [place], [place] | | | | | | [address] | | | | | | [phone] | | | | | | | | +--------+---------+ + + + documented as of this encounter Visit Diagnoses + + | Diagnosis | + + | Acute myeloid leukemia (AML), M4 (HCC)- primary induction failure - Primary | + + documented in this encounter"
--- OUTSIDE RECORDS SUMMARY | ~2019-05-17 | XMS | Encounter Summary ---
Demographics + + + | Address | [address] | | | [place] [address] | + + + | Home Phone [...] Team Providers + +------+ + | Care Viscosity Inspector Name | Role | Phone | [...] + + | 03/15/ | Telephone | [facility] | Yair Garcia MD | Medication | | 2017 | | Hematologic | [address] | Adjustment ([facility] [place]) | | | | Malignancies at | [address] | | | | | [facility] | [place], [place] | | | | | [address] | [address] | | | | | Debi Burger Mailcode: | [phone] | | | | | [id number] | | | | | | [place], | | | | | | [place] [address] | | | | | | [phone] | | | +--------+ + + + [...] Rd | | | | | | [place], [place] | | | | | | [address] | | | | | | [phone] | | | | | | | | +--------+---------+ + + + documented as of this encounter Visit Diagnoses Not on filedocumented in this encounter"
--- OUTSIDE RECORDS SUMMARY | ~2019-05-17 | XMS | Encounter Summary ---
Demographics + + + | Address | [address] | | | [place] [address] | + + + | Home Phone [...] Team Providers + +------+ + | Care Tiedown Operator Name | Role | Phone | [...] | | | | [facility] | [place], [place] | | | | | [address] | [address] | | | | | Debi Burger Mailcode: | [phone] | | | | | [facility] | | | | | | [place], | | | | | | [place] [address] | | | | | | [phone] | | | +--------+ + + + [...] [address] | | | | | | [place], [place] | | | | | | [address] | | | | | | [phone] | | | | | | | | +--------+---------+ + + + documented as of this encounter Visit Diagnoses Not on filedocumented in this encounter"
--- OUTSIDE RECORDS SUMMARY | ~2019-05-17 | XMS | Encounter Summary ---
Demographics + + + | Address | [address] | | | [place] [address] | + + + | Home Phone [...] Team Providers + +------+ + | Care Fingernail Former Name | Role | Phone | + +------+ + | Zayda Hinton | PCP | | + +------+ + Encounter Details +--------+ + + + + | Date | Type | Department | Care Team | Description | +--------+ + + + + | 01/03/ | Pharmacy | [facility]ty [facility]acy | | | | 2015 | Visit | Services [address] | | | | | | [place], [place] | | | | | | [address] | | | | | | [phone] | | | +--------+ + + + [...] | | | | | | [place], [place] | | | | | | [address] | | | | | | [phone] | | | | | | | | +--------+---------+ + + + documented as of this encounter Visit Diagnoses Not on filedocumented in this encounter"
--- OUTSIDE RECORDS SUMMARY | ~2019-05-17 | XMS | Encounter Summary ---
Demographics + + + | Address | [address] | | | [place] [address] | + + + | Home Phone [...] Team Providers + +------+ + | Care Plate Embosser Name | Role | Phone | + +------+ + | Pending Pcp Addition | PCP | Unavailable | + +------+ + Reason for Visit + + + | Reason | Comments | + + + | Lab Draw | neostar | + + + | Chemotherapy | vidaza | + + + | Medication | pentamadine | + + + Chemotherapy (Routine) +--------+---------+ [...] | Acute | Yair Jones MD | Infusion | | | | | myelomonocyt | [address] | [employer] [address] | | | | | ic leukemia, | [address] | [facility] | | | | | not having | [address] | [address] | | | | | achieved | [place], [place] | Rd Mailcode: | | | | | remission | [address] | [id number] | | | | | Procedures | Phone: | [place] | | | | | [place] | [phone] | Pavilion | | | | | AZACITIDINE | Fax: | [place], [place] | | | | | INJECTION, 1 | [phone] | [address] | | | | | [place] | | Phone: | | | | | CHM,IV | | [phone] | | | | | INFSN,1 HR | | Fax: | | | | | [place] CHM,IV | | [phone] | | | | | INFSN,ADDL | | | | | | | HR Vidaza | | | +--------+---------+ + + + + Encounter Details +--------+ + + + + | Date | Type | Department | Care Team | Description | +--------+ + + + + | 12/01/ | Clinical | [facility] for | | Lab Draw (neostar); | | 2015 | Support | Hematologic | | Chemotherapy | | | Staff | [facility] at [facility] | | (vidaza); Medication | | | | [address] | | (pentamadine) | | | | [address]ally [address] Mailcode: | | | | | | [id number] [place] | | | | | | [place], | | | | | | [place] [address] | | | | | | [phone] | | | +--------+ + + + [...] + | Blood Pressure | 128/83 | 12/02/2015 8:02 AM | | | | | PDT | | + + + + + | Pulse | 90 | 12/02/2015 8:02 AM | | | | | PDT | | + + + + + | Temperature | 37.2 C (98.9 F) | 12/02/2015 8:02 AM | | | | | PDT | | + + + + + | Respiratory Rate | 16 | 12/02/2015 8:02 AM | | | | | PDT | | + + + + + | Oxygen Saturation | 99% | 12/02/2015 8:02 AM | | | | | PDT | | + + + + + | Inhaled Oxygen | - | - | | | Concentration | | | | + + + + + | Weight | 86.2 kg (190 lb) | 12/02/2015 8:02 AM | | | | | PDT | | + + + + + | Height | - | - | | + + + + + | Body Mass Index | 24.56 | 08/18/2015 4:35 PM | | | | | PST | | + + + + + documented in this encounter Patient Instructions Patient Instructions Samantha Padilla RN - 12/02/2015 9:29 AM PDTpentamidine Pronunciation: beatriz Ziegler Brand: Eva Medina 300 What is pentamidine? Pentamidine is an antifungal medication that fights infections caused by fungus. Pentamidine is used to prevent and treat pneumonia caused by Pneumocystis jiroveci (carinii ). Pentamidine may also be used for purposes not listed in this medication guide. What should I discuss with my healthcare provider before using pentamidine? You should not use pentamidine if you are allergic to it. To make sure pentamidine is safe for you, tell your doctor if you have: high or low blood pressure; a heart rhythm disorder; diabetes, or low blood sugar (hypoglycemia); a pancreas disorder; a severe skin rash called Ospina-Chang syndrome; anemia (low red blood cells); low white blood cells or low platelets in your blood; low levels of calcium or high levels of potassium in your blood; liver or kidney disease; or a history of smoking or asthma. FDA category C. It is not known whether pentamidine will harm an unborn baby. Tel l your doctor if you are or plan to become while using this medication. It is not known whether pentamidine passes into breast milk or if it could harm a nursing b cameron. You should not breast-feed while using this medicine. Inhaled pentamidine should not be given to a child without the advice of a doctor. How is pentamidine given? Pentamidine is given either as an injection, or as in inhaled medicine using a nebulizer. F ollow all directions on your prescription label. Do not use this medicine in larger or small er amounts or for longer than recommended. Pentamidine is a powder medicine that must be mixed with a liquid (diluent) before using it as an injection or with a nebulizer. If you are using this medicine at home, be sure you un derstand how to properly mix and store the medicine. Use only the diluent provided with your medication. To use pentamidine as an injection: Pentamidine is injected into a muscle, or into a vein through an IV. You may be shown how t o use an IV at home. Do not self-inject this medicine if you do not understand how to give t he injection and properly dispose of used needles, IV tubing, and other items used to inject the medicine. Do not use pentamidine if it has changed colors or has particles in it. Call your pharmacis t for new medication. Tell your caregivers if you feel any burning, pain, or swelling around the IV needle when p entamidine is injected. Use a disposable needle only once, then throw away in a puncture-proof container (ask your pharmacist where you can get one and how to dispose of it). Keep this container out of the r each of children and pets. To use pentamidine with a nebulizer: After mixing your medicine with the diluent, pour all of the mixture into the chamber of th e nebulizer. Attach the mouthpiece or face mask, then attach the drug chamber to the parth sor. Do not mix any other medicines in the nebulizer with pentamidine. Sit upright in a comfortable position. Place the mouthpiece into your mouth or put on the f raleigh mask, covering your nose and mouth. Turn on the compressor. Breathe in slowly and evenly until no more mist is formed by the nebulizer and the drug ladonna mber is empty. Clean the nebulizer after each use. Follow the cleaning directions that came with your shaye martinez. If you are diabetic, check your blood sugar carefully while you are receiving pentamidine. This medicine can raise or lower your blood sugar. While using pentamidine, you may need frequent blood tests. Your heart function may need to be checked using an electrocardiograph or ECG (sometimes called an EKG). Store unmixed medicine at room temperature away from moisture, heat, and light. Mixed medicine must be used within a certain number of hours, depending on the diluent. Car efully follow the mixing and storage instructions provided with your medicine. Ask your phar macist if you have questions. Pentamidine contains no preservative. Throw away any unused medicine. What happens if I miss a dose? Call your doctor for instructions if you miss a dose of pentamidine. What happens if I overdose? Seek emergency medical attention or call the Poison Help line at . What should I avoid while using pentamidine? Follow your doctor's instructions about any restrictions on food, beverages, or activity. What are the possible side effects of pentamidine? Get emergency medical help if you have any of these signs of an allergic reaction: hives; d ifficult breathing; swelling of your face, lips, tongue, or throat. Call your doctor at once if you have: wheezing, choking, or other breathing problems after using this medication with a nebulizer ; a light-headed feeling, like you might pass out; fast or uneven heart rate; painful or difficult urination; confusion, hallucinations; pain, burning, irritation, or skin changes where the injection was given; worsening symptoms, or signs of a new infection (fever, cough, trouble breathing, night swe ats); a blood cell disorder --pale skin, feeling light-headed or short of breath, easy bruising, unusual bleeding, purple or red pinpoint spots under your skin; pancreatitis --severe pain in your upper stomach spreading to your back, nausea and vomitin g; low blood sugar --headache, hunger, weakness, sweating, confusion, irritability, dizziness, or feeling jittery; or severe skin reaction --fever, sore throat, swelling in your face or tongue, burning in your eyes, skin pain, followed by a red or purple skin rash that spreads (especially in the face or upper body) and causes blistering and peeling. Common side effects may include: loss of appetite; or unusual or unpleasant taste in the mouth. This is not a complete list of side effects and others may occur. Call your doctor for [employer] [facility] advice about side effects. You may report side effects to FDA at 1-673-WJZ-3867. What other drugs will affect pentamidine? Other drugs may interact with pentamidine, including prescription and uzdn-ioj-[id number] medi cines, vitamins, and herbal products. Tell each of your health care providers about all medi cines you use now and any medicine you start or stop using. Where can I get more information? Your doctor or pharmacist can provide more information about pentamidine. Remember, keep this and all other medicines out of the reach of children, never share your medicines with others, and use this medication only for the indication prescribed. Every effort has been made to ensure that the information provided by [employer]. ( '[employer]') is accurate, up-to-date, and complete, but no guarantee is made to that effect. Dr anny information contained herein may be time sensitive. [employer] information has been compiled for use by healthcare practitioners and consumers in the [place] and therefore [employer] does not warrant that uses outside of the [place] are appropriate, unless specifically indicated otherwise. [employer] drug information does not endorse drugs, diagnose patients or recommend therapy. [employer] drug information is an informational resource designed to kelton t licensed healthcare practitioners in caring for their patients and/or to serve consumers v iewing this service as a supplement to, and not a substitute for, the expertise, skill, know ledge and judgment of healthcare practitioners. The absence of a warning for a given drug or drug combination in no way should be construed to indicate that the drug or drug combinatio n is safe, effective or appropriate for any given patient. [facility] does not assume any respon sibility for any aspect of healthcare administered with the aid of information [employer] provid es. The information contained herein is not intended to cover all possible uses, directions, precautions, warnings, drug interactions, allergic reactions, or adverse effects. If you bower ve questions about the drugs you are taking, check with your doctor, nurse or pharmacist. Copyright 5020-8269 [employer]. Version: 2.01. Revision date: 04/21/2013. This information does not replace the advice of a doctor. [employer] disclaim s any warranty or liability for your use of this information. Content Version: 10.7.314790 documented in this encounter Progress Notes Samantha Padilla RN - 12/02/2015 8:36 AM PDT Chemotherapy Nurse Note Name: Khurram Kelly Date: 12/02/2015 Physician: Dr. Yari Garcia Allergies: Khurram is allergic to chlorhexidine towelette. Narrative: Khurram Kelly is a 25 y.o. 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 Nursing Assessment: Pt ambulated to clinic today with at side. He states he is feeling great. He has had some intermittent nausea for which he takes Zofran BID. Currently he does not have any maria l sea. Fever: no; Diarrhea: no; SOB / Cough: no; Nausea / Vomiting: yes - see above note; Anemia / Fatigue: no; Constipation: no; Edema: no; S/S Bleeding: no; Mucositis: no; Urinary: no; Liu ropathy: no; Rash: no Patient on tacrolimus, states did not take today in anticipation of labs. Currently taking 1 mg BID. Educated patient we will contact them later today regarding level. Vascular Access: Neostar accessed per protocol. Good blood return noted. Appropriate wast e discarded. Labs drawn and sent. Labs: Lab Results Component Value Date WBC 6.3 11/29/2015 HB 12.7* 11/29/2015 HCT 37.1* 11/29/2015 PLT 72* 11/29/2015 BUN 19 11/29/2015 CR 0.9 11/29/2015 For Treatment Done in Clinic Today: see MAR Treatment Provided: Per chemo plan: Labs results reviewed and met protocol parameters. Pre-medications of 8 mg PO BID given as ordered. Chemotherapy was checked by 2 RNs. Vidaza was infused per chemotherapy protocol and comple edward without adverse event. Positive blood return noted pre and post infusion. For infusion details, see MAR. Per infusion plan: Dr. Garcia paged about pentamidine since it was unclear when to start. She confermed she wou ld like pt to start Pentamadine today. Pentamadine IV was infused per protocol through Neostar and completed without adverse event . Positive blood return noted pre and post infusion. For infusion details, see MAR. Patient education regarding Pentamidine given. Neostar pulse flushed with 20 mL NS and 5 mL of 10 units/mL Heparin. Patient was reminded to call clinic with temp > 100.4, chills, s/s of bleeding or uncontrol led N/V/D/C. Patient verbalizes understanding. Patient was instructed to check out at the ont desk prior to leaving the clinic. Patient d/c d ambulatory. Samantha Swartz RN documented in this encounter [...] 2018 | Visit | Malignancy | [address] [facility] | | | | | | [address] | | | | | | [place], [place] | | | | | | [address] | | | | | | [phone] | | | | | | | | +--------+---------+ + + + documented as of this encounter Procedures + +--------+ + + + | Procedure Name | Priori | Date/Time | Associated Diagnosis | Comments | | | ty | | | | + +--------+ + + + | BMP + MAG, POC CHM | Routin | 12/02/2015 | S/P allogeneic | Results for this | | | e | 8:39 AM | bone marrow | procedure are [...] + + | CBC+DIFF,POC | Routin | 12/02/2015 | S/P allogeneic | Results for this [...] + | LIVER SET | Urgent | 12/02/2015 | S/P allogeneic | Results for this | | (AST,ALT,BILI | | 8:11 AM | bone marrow | procedure are [...] + | TACROLIMUS, WHOLE | Routin | 12/02/2015 | S/P allogeneic | Results for this | | BLOOD | e | 8:10 AM | bone marrow | [...] + + | NURSING | Routin | 12/02/2015 | S/P allogeneic | | | COMMUNICATION #5 - | e | 8:08 AM | bone marrow | | | [place] | | PDT | transplant ([facility]) | 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[facility])- primary | | | | | | induction failure | | + +--------+ + + + | NURSING | Routin | 12/02/2015 | S/P allogeneic | | | COMMUNICATION #4 - | e | 8:08 AM | bone marrow | | | [place] | | PDT | transplant ([facility]) | 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[facility])- primary | | | | | | induction failure | | + +--------+ + + + | NURSING | Routin | 12/02/2015 | S/P allogeneic | | | COMMUNICATION #3 - | e | 8:08 AM | bone marrow | | | [place] | | PDT | transplant ([facility]) | 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[facility])- primary | | | | | | induction failure | | + +--------+ + + + | NURSING | Routin | 12/02/2015 | S/P allogeneic | | | COMMUNICATION #2 - | e | 8:08 AM | bone marrow | | | [place] | | PDT | transplant (HCC) | 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[facility])- primary | | | | | | induction failure | | + +--------+ + + + | NURSING | Routin | 12/02/2015 | S/P allogeneic | | | COMMUNICATION #1 - | e | 8:08 AM | bone marrow | | | [place] | | PDT | transplant (HCC) | 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 | | + +--------+ + + + | TREATMENT PARAMETERS | Routin | 12/02/2015 | S/P allogeneic | | | #1 - [place] | e | 8:08 AM | bone marrow | | | | | PDT | transplant (HCC) | 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 | | + +--------+ + + + | TREATMENT PARAMETERS | Routin | 12/02/2015 | 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), 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 | | | | | | induction failure | | + +--------+ + + + | TREATMENT PARAMETERS | Routin | 12/02/2015 | 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), 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 | | | | | | induction failure | | + +--------+ + + + | TREATMENT PARAMETERS | Routin | 12/02/2015 | 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), M4 | | | | | PDT | ([facility])- primary | | | | | | induction failure | | + +--------+ + + + | TREATMENT PARAMETERS | Routin | 12/02/2015 | 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), M4 | | | | | PDT | ([facility])- primary | | | | | | induction failure | | + +--------+ + + + | TREATMENT PARAMETERS | Routin | 12/02/2015 | 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), 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 | | | | | | induction failure | | + +--------+ + + + | NURSING | Routin | 12/02/2015 | S/P allogeneic | | | COMMUNICATION #3 - | e | 8:08 AM | bone marrow | | | [place] | | PDT | transplant (HCC) | 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[facility])- primary | | | | | | induction failure | | + +--------+ + + + | NURSING | Routin | 12/02/2015 | S/P allogeneic | | | COMMUNICATION #2 - | e | 8:08 AM | bone marrow | | | [place] | | PDT | transplant (HCC) | 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[facility])- primary | | | | | | induction failure | | + +--------+ + + + | NURSING | Routin | 12/02/2015 | S/P allogeneic | | | COMMUNICATION #1 - | e | 8:08 AM | bone marrow | | | [place] | | PDT | transplant (HCC) | 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 | | + +--------+ + + + | TREATMENT PARAMETERS | Routin | 12/02/2015 | S/P allogeneic | | | #1 - [place] | e | 8:08 AM | bone marrow | | | | | PDT | transplant (HCC) | 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 | | + +--------+ + + + | TREATMENT PARAMETERS | Routin | 12/02/2015 | S/P allogeneic | | | #1 - [place] | e | 8:08 AM | bone marrow | | | | | PDT | transplant (HCC) | 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 | | + +--------+ + + + documented in this encounter Results TACROLIMUS, WHOLE BLOOD (12/03/2015 8:10 AM PDT) [...] | + + + + + | [facility] | [address] | [place] [address] | | | SERVICES, SPECIAL | [address] | | | | IMM + COAG | | | | + + + + + BMP + MAG, POC CHM (12/02/2015 8:39 AM PDT) + +---------+ + + + [...] [place] | | | | | | [place], [...] + + + | LDH, POC | 225 (H) | 0 - 206 U/L | [...] [facility] | [address] | [place], [place] | | | RUTHIE CARTER OF CARE | [address] | [address] | | | TESTS | | | | + + + + + CBC+PHIL GRIJALVA (12/02/2015 8:34 AM PDT) + + + + + [...] + + + | RBC POC | 3.70 (L) | 4.50 - 6.00 | [facility] [...] + + + | HCT POC | 38.1 (L) | 41.0 - 53.0 % | [facility] - | | | | | | [place] | | | | | | [facility], POINT | | | | | | OF CARE | | | | | | TESTS | | + + + + + + | MCV POC | 103.0 (H) | 80.0 - 96.0 fL | [...] + + | RDW SD, POC | 57.5 (H) | 35.1 - 46.3 fL | [facility] - | | | | | | [place] | | | | | | [facility] CARTER | | | | | | OF CARE | | | | | | TESTS | | + + + + + + | PLT POC | 52 (L) | 150 - 400 | [facility] [...] + + + | LYMPH% POC | 24.0 | 18 - 42 % | [facility] [...] + + + + | NEUTROPHIL# | 3.7 | 1.8 - 7.7 | [facility] - [...] | [place], [place] | | | [facility] POINT OF CARE | [address] | [address] | | | TESTS | | | | + + + + + LIVER SET (AST,ALT,BILI TOTAL,BILI DIRECT,ALK PHOS,ALB,PROT TOTAL) (12/02/2015 8:11 AM PDT ) + +---------+ + + [...] | + + + + + | [facility] | [address] [facility] | [place] [address] | | | SERVICES, CORE | [address] | | | + + + + + TACROLIMUS, WHOLE BLOOD (12/02/2015 8:10 AM PDT) + + + + + + | Component | Value | Ref Range | Performed | Pathologist | | | | | At | Signature | + + + + + + | TACROLIMUS | 16.3 (H) | 5.0 - 15.0 | [facility] [...] [facility] | [address] | [place] [address] | | | SERVICES, SPECIAL | [address] | | | | IMM + COAG | | | | + + + + + documented in this encounter Visit Diagnoses + + | Diagnosis | + + | Acute myeloid leukemia (AML), M4 ([facility])- primary induction failure - Primary | + + | 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HCC) Bone marrow replaced by transplant | + + documented in this encounter Administered Medications + +---------+ +-------+-------+-------+ | Medication Order | MAR | Action | Dose | Rate | Site | | | Action | Date | | | | + +---------+ +-------+-------+-------+ | azaCITIDine (VIDAZA) 70 mg in | New Bag | 12/02/19 | 70 mg | 214 | Port | | NaCl 0.9 % IV 70 mg (rounded | | 16 9:20 | | mL/hr | | | from 67.84 mg = 32 mg/m2 | | AM PDT | | | | | 2.12 m2 Treatment plan recorded | | | | | | | BSA), intravenous, Administer | | | | | | | over 30 Minutes, ONCE, 1 dose, | | | | | | | [facility] 12/02/15 at 0900, HIGH RISK | | | | | | | MEDICATION-CHEMOTHERAPY | | | | | | | Administration must be completed | | | | | | | within 1 hour of preparation., | | | | | | + +---------+ +-------+-------+-------+ +---+---+ | | | +---+---+ + +-------+ + +---+---+ | heparin 10 unit/mL IV flush | Given | 12/02/19 | 50 Units | | | | syringe 50 Units 50 Units, | | 16 12:26 | | | | | Intracatheter, NEEDED, | | PM PDT | | | | | Starting [facility] 12/02/15 at 1213, | | | | | | | Until [facility] 12/02/15 at 1836, line | | | | | | | patency | | | | | | + +-------+ + +---+---+ +---+---+ | | | +---+---+ + +-------+ + +---+---+ | heparin 10 unit/mL IV flush | Given | 12/02/19 | 50 Units | | | | syringe 50 Units 50 Units, | | 16 12:26 | | | | | Intracatheter, NEEDED, | | PM PDT | | | | | Starting [facility] 12/02/15 at 1213, | | | | | | | Until [facility] 12/02/15 at 1836, line | | | | | | | patency | | | | | | + +-------+ + +---+---+ +---+---+ | | | +---+---+ + +-------+ + +---+---+ | heparin 10 unit/mL IV flush | Given | 12/02/19 | 50 Units | | | | syringe 50 Units 50 Units, | | 16 12:26 | | | | | Intracatheter, NEEDED, | | PM PDT | | | | | Starting [facility] 12/02/15 at 1213, | | | | | | | Until [facility] 12/02/15 at 1836, line | | | | | | | patency | | | | | | + +-------+ + +---+---+ +---+---+ | | | +---+---+ + +-------+ +------+---+---+ | ondansetron (ZOFRAN) tablet 8 | Given | 12/02/19 | 8 mg | | | | mg 8 mg, oral, ONCE, 1 dose, [facility] | | 16 9:00 | | | | | 12/02/15 at 0900 | | AM PDT | | | | + +-------+ +------+---+---+ +---+---+ | | | +---+---+ + +---------+ +--------+---+---+ | pentamidine (PENTAM) IV 300 mg | New Bag | 12/02/19 | 300 mg | | | | 300 mg, intravenous, ONCE, 1 | | 16 10:00 | | | | | dose, [facility] 12/02/15 at 0915 | | AM PDT | | | | + +---------+ +--------+---+---+ +---+---+ | | | +---+---+ documented in this encounter"
--- OUTSIDE RECORDS SUMMARY | ~2019-05-17 | XMS | Encounter Summary ---
Demographics + + + | Address | [address] | | | [place] [address] | + + + | Home Phone [...] Team Providers + +------+ + | Care Grout Machine Operator Name | Role | Phone [...] | | | | | achieved | [place], [place] | [id number] | | | | | remission | [address] | [place] | | | | | | Phone: | Pavilion | | | | | Procedures | [phone] | [place], [place] | | | | | [place] EST | Fax: | [phone] | | | | | PATIENT | [phone] | Phone: | | | | | LEVEL V | | [phone] | | | | | | | Fax: | | | | | | | [phone] | + +--------+ + + + + [...] Acute | | | | [facility] at [facility] | [address] | myelomonocytic | | | | [address] | [place], [place] | leukemia in | | | | Mailcode: Center | [address] | remission (HCC); | | | | for Health and | [phone] | Disease of blood and | | | | Healing, [address] | | blood-forming | | | | [place], [place] | | organs, unspecified | | | | [address] | | ; Encounter for | | | | [phone] | | observation for | | | [...] team pause: Norma Noel RN; Yoli Yanes TELEPHONE OPERATORS SUPERVISOR. Description: Written consent for bone marrow aspirate [...] [facility] [address] Mailcode: [place] [address] documented in this enc ounter [...] Rd | | | | | | [place], [place] | | | | | | [address] | | | | | | [phone] | | | | | | | [...] | + +--------+ + + + | [place] DX BONE MARROW BX | Routin | [...] | | | | AML called to [place] | | | | | | MD [...] | | | | ent of Pathology, [place] | | | | | | Health [...] [id number] | | | | | | [id number] HLA-DR sKappa | | | | | [...] + + + + + | [facility] DEPARTMENT OF | [address] | [place] [address] | | | PATHOLOGY | [address] | | | + + + + + | [facility] LABORATORY | [address] | [place] [address] | | | [facility] | | | | | [...]
--- OUTSIDE RECORDS SUMMARY | ~2019-05-17 | XMS | Encounter Summary ---
Demographics + + + | Address | [address] | | | [place] [address] | + + + | Home Phone [...] Team Providers + +------+ + | Care Terrazzo Worker Helper Name | Role | Phone | + +------+ + | No Pcp Per Patient | PCP | Unavailable | + +------+ + Encounter Details +--------+------+ + + + | Date | Type | Department | Care Team | Description | +--------+------+ + + + | 10/12/ | Lab | Laboratory, | | S/P allogeneic bone | | 2016 | | Specimen Collection | | marrow transplant | | | | at [facility] 3rd Floor | | ([facility]) | | | | [address] | | | | | | [place], | | | | | | [place] [address] | | | | | | [phone] | | | +--------+------+ + + + [...] 2019 | Visit | Malignancy | [address] | | | | | | [address] | | | | | | [place], [place] | | | | | | [address] | | | | | | [phone] | | | | | | | | +--------+---------+ + + + documented as of this encounter Procedures + +--------+ + + + | Procedure Name | Priori | Date/Time | Associated Diagnosis | Comments | | | ty | | | | + +--------+ + + + | CBC AND AUTO DIFF | Urgent | 10/12/2016 | S/P allogeneic | Results for this | | | | 11:27 AM | bone marrow | procedure are in the | | | | PDT | transplant ([facility]) | results section. | + +--------+ + + + | CBC, WITH | Urgent | 10/12/2016 | S/P allogeneic | Results for this | | DIFFERENTIAL | | 11:27 AM | bone marrow | procedure are in the | | | | PDT | transplant ([facility]) | results section. | + +--------+ + + + | COMPLETE METABOLIC | Urgent | 10/12/2016 | S/P allogeneic | Results for this | | SET | | 11:27 AM | bone marrow | procedure are in the | | (NA,K,CL,CO2,BUN,CRE | | PDT | transplant ([facility]) | results section. | | AT,GLUC,CA,AST,ALT,B | | | | | | YUN TOTAL,ALK | | | | | | PHOS,ALB,PROT TOTAL) | | | | | + +--------+ + + + | PHOSPHORUS, PLASMA | Urgent | 10/12/2016 | S/P allogeneic | Results for this | | | | 11:27 AM | bone marrow | procedure are in the | | | | PDT | transplant ([facility]) | results section. | + +--------+ + + + | BILIRUBIN DIRECT | Urgent | 10/12/2016 | S/P allogeneic | Results for this | | | | 11:27 AM | bone marrow | procedure are in the | | | | PDT | transplant ([facility]) | results section. | + +--------+ + + + | URIC ACID, PLASMA | Urgent | 10/12/2016 | S/P allogeneic | Results for this | | | | 11:27 AM | bone marrow | procedure are in the | | | | PDT | transplant ([facility]) | results section. | + +--------+ + + + | MAGNESIUM, PLASMA | Urgent | 10/12/2016 | S/P allogeneic | Results for this | | | | 11:27 AM | bone marrow | procedure are in the | | | | PDT | transplant ([facility]) | results section. | + +--------+ + + + | LDH TOTAL, PLASMA | Urgent | 10/12/2016 | S/P allogeneic | Results for this | | | | 11:27 AM | bone marrow | procedure are in the | | | | PDT | transplant ([facility]) | results section. | + +--------+ + + + documented in this encounter Results CBC AND AUTO DIFF (10/12/2016 11:27 AM PDT) + + + + + + | Component | Value | Ref Range | Performed | Pathologist | | | | | At | Signature | + + + + + + | WHITE CELL | 6.50 | 3.50 - 10.80 | [facility] | | | COUNT | | K/cu mm | LABORATORY | | | | | | SERVICES, | | | | | | CORE | | + + + + + + | RED CELL | 4.39 (L) | 4.50 - 6.00 | [facility] | | | COUNT | | M/cu mm | LABORATORY | | | | | | SERVICES, | | | | | | CORE | | + + + + + + | HEMOGLOBIN | 13.7 | 13.5 - 17.5 | [facility] | | | | | g/dL | LABORATORY | | | | | | SERVICES, | | | | | | CORE | | + + + + + + | HEMATOCRIT | 39.9 (L) | 41.0 - 53.0 % | [facility] | | | | | | LABORATORY | | | | | | SERVICES, | | | | | | CORE | | + + + + + + | MCV | 90.9 | 80.0 - 96.0 fL | [facility] [...] + + + | RDW SD | 44.8 | 35.1 - 46.3 fL | [facility] | | | | | | LABORATORY | | | | | | SERVICES, | | | | | | CORE | | + + + + + + | PLATELET | 314 | 150 - 400 K/cu | [facility] [...] + + + + | NEUTROPHIL | 60.7 | 50.0 - 70.0 % | [facility] | | | % | | | LABORATORY | | | | | | SERVICES, | | | | | | CORE | | + + + + + + | LYMPHOCYTE | 32.0 | 18.0 - 42.0 % | [facility] | | | % | | | LABORATORY | | | | | | SERVICES, | | | | | | CORE | | + + + + + + | MONOCYTE % | 6.2 | 3.5 - 9.0 % | [facility] | | | | | | LABORATORY | | | | | | SERVICES, | | | | | | CORE | | + + + + + + | EOS % | 0.3 (L) | 1.0 - 3.0 [...] + + + + | NEUTROPHIL | 3.95 | 1.80 - 7.70 | [facility] | | | # | | K/cu mm | LABORATORY | | | | | | SERVICES, | | | | | | CORE | | + + + + + + | LYMPHOCYTE | 2.08 | 1.00 - 4.80 | [facility] | | | # | | K/cu mm | LABORATORY | | | | | | SERVICES, | | | | | | CORE | | + + + + + + | MONOCYTE # | 0.40 | 0.10 - 0.90 | [facility] | [...] reference ranges effective May 24, 2016. | [facility] | | Immature Granulocytes (IG) include metamyelocytes, [...] | + + + + + | [facility] | [address] | [place] [address] | | | SERVICES, CORE | [address] | | | + + + + + LDH TOTAL, PLASMA (10/12/2016 11:27 AM PDT) [...] [facility] | [address] | [place] [address] | | | SERVICES, CORE | PARK [...] [facility] | [address] | [place] [address] | | | SERVICES, CORE | PARK [...] LABORATORY | [address] | [place] [address] | | | SERVICES, CORE | PARK [...] | + + + + + | [facility] LABORATORY | [address] | [place] [address] | | | SERVICES, CORE | [address] [...] | + + + + + | [facility] LABORATORY | [address] | [place] [address] | | | SERVICES, CORE | PARK [...] | | | LABORATORY | | | MAURITIAN | | | SERVICES, | | | [...] | + + + + + | [facility] | [address] | [place] [address] | | | INDRA SHARIF | [address] | | | + + + + + documented in this encounter Visit Diagnoses + + | Diagnosis | + + | 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
--- OUTSIDE RECORDS SUMMARY | ~2019-05-17 | XMS | Encounter Summary ---
Demographics + + + | Address | [address] | | | [place] [address] | + + + | Home Phone [...] Team Providers + +------+ + | Care Sound Effects Technician Name | Role | Phone | [...] | | | | | | [place], | | | | | | | [place] | | | | | | | [address] | | | | | | | Phone: | | | | | | | [phone] | | | | | | | Fax: | | | | | | | [phone] | +--------+--------+ + + + + Encounter Details +--------+---------+ + + + | Date | Type | Department | Care Team | Description | +--------+---------+ + + + | 01/12/ | Office | Center for | Aspen Cummins FNP | S/P allogeneic bone | | 2016 | Visit | Hematologic | [address] | marrow transplant | | | | Malignancies at | [address] | (HCC) (Primary Dx) | | | | [address] | [place], [place] | | | | | [address] | [address] | | | | | [address] Mailcode: | [phone] | | | | | [id number] | | | | | | [place], | | | | | | [place] [address] | | | | | | [phone] | | | +--------+---------+ + + + [...] + + + | Blood Pressure | 138/75 | 01/13/2016 9:26 AM | | | | | PDT | | + + + + + | Pulse | 79 | 01/13/2016 9:26 AM | | | | | PDT | | + + + + + | Temperature | 36.8 C (98.3 F) | 01/13/2016 9:26 AM | | | | | PDT | | + + + + + | Respiratory Rate | 18 | 01/13/2016 9:26 AM | | | | | PDT | | + + + + + | Oxygen Saturation | 98% | 01/13/2016 9:26 AM | | | | | PDT | | + + + + + | Inhaled Oxygen | - | - | | | Concentration | | | | + + + + + | Weight | 88.3 kg (194 lb 10.7 | 01/13/2016 9:26 AM | | | | oz) | PDT | | + + + + + | Height | - | - | | + + + + + | Body Mass Index | 25.16 | 08/18/2015 4:35 PM | | | | | PST | | + + + + + documented in this encounter Progress Notes Aspen Cummins FNP - 01/13/2016 6:18 AM PDT 01/13/2016 [facility] MD: Yari Garcia MD Primary Oncologist: Yari Garcia MD Diagnosis: AMML, primary refractory Transplant Date: 08/27/15 Donor: MM URD (DPB1 permissive antigen mismatch, male, [id number]) Identifying Data: Khurram Kelly is a 25 [...] his L ankle. He was evaluated at [facility] ED on 06/[address] angiogram [...] myelomonocytic leukemia. He was referred to [facility] for further evaluation and man agement of his newly dx'd AML. Pt was admitted to [facility] on 05/26/15. Peripheral blood was sent [...] CD34, variable CD56, variable CD117, and dim UL428-wknsr mickey; promonocyte immunophenotype (70% by flow): CD11b, [...] durin g taper. He is currently day +139 s/p transplant, day 18, c3 of azacitidine and returns to clinic to day for scheduled follow-up. Interim History: Khurram was most recently evaluated in our [facility] by Yari Garcia MD on 01/06/16. He and his just returned from a long week end trip to [facility] to visit with family and friends. They haven't been home since hi s diagnosis and it was a good break for them. Appetite is good despite ongoing taste distur bance, feels he's eating well with adequate po fluid intake. Intermittent nausea however he has not been taking antiemetics; resolves with rest. Knee pain completely resolved. Feels the pain was beginning to improve prior to increasing his steroid dose. He has tapered down from 20 mg to 15 mg po daily, planning to drop again to 10 mg po daily today. Review of Systems Constitutional: Negative for fever, chills and malaise/fatigue. HENT: Negative for headaches, congestion and sore throat. Respiratory: Positive for cough (very intermittent, feels he has a resolving head cold). Ne gative for sputum production, shortness of breath and wheezing. Cardiovascular: Negative for chest pain and leg swelling. Gastrointestinal: Positive for nausea. Negative for vomiting, abdominal pain and diarrhea. Genitourinary: Negative for dysuria. Musculoskeletal: Negative for myalgias, back pain and joint pain. Skin: Negative for rash. [...] for dresssing change per pt. Filed Vitals: 01/13/2016 9:26 AM Weight: 88.3 kg (194 lb 10.7 oz) BP: 138/75 Pulse: 79 Temp: 36.8 C (98.3 F) TempSrc: Oral Resp: 18 SpO2: 98% PainSc: 0 - Zero BMI: 25.17 kg/(m^2) Physical Exam Constitutional: He is well-developed, [...] induration Lab Results Component Value Date WBC 6.4 01/13/2016 HB 12.9 01/13/2016 HCT 37.4 01/13/2016 PLT 63 01/13/2016 MCV 103.9 01/13/2016 RDW 60.3 11/22/2015 Lab Results Component Value Date BICARB 26 01/13/2016 TBILI 0.2* 01/06/2016 CA 9.7 01/13/2016 CL 107 01/13/2016 CR 0.7 01/13/2016 GLU 103* 01/13/2016 AP 83 01/06/2016 TP 6.9 01/06/2016 BUN 16 01/13/2016 ALB 3.6 01/06/2016 AST 74* 01/06/2016 NA 142 01/13/2016 K 4.3 01/13/2016 ALT 243* 01/06/2016 Assessment/Plan: 1. Hematology: Khurram Kelly is currently day +139 s/p tBuCy-conditioned unrel ated donor PBSC transplant [...] maintenance azacitidine on 11/01/15, currently c3, day 1 8. WBC/ANC WNL with stable anemia, thrombocytopenia post-chemo. No blood products are requi red today. He continues without evidence of disease by peripheral smear. --> continue CBC q1-2 weeks --> c4 azacitidine [32 mg/m2 IV daily x 5 days] scheduled to begin 01/24/16 --> plan to complete 6 cycles of post-transplant azacitidine due to active disease at time of transplant --> repeat marrow studies after c6 of azacitidine 2. Ufhtp-zs-Vyzy Disease: Skin bx due to mild rash [...] not c/w serosal involvement of GVHD given cl inical course. Prednisone was increased to 20 mg po daily x3 days, then 15 mg po daily x 3 d ays. Currently asymptomatic with no evidence of GvHD. --> decrease prednisone to 10 mg po daily --> continue tacrolimus 0.5 mg bid --> continue oral non-absorbables --> if pt remains clinically stable, decrease prednisone to 10 mg po every other day altern ating with 5 mg po every other day next visit 3. Infectious Disease: Afebrile without localizing s/s infection. He continues prophylactic posaconazole, acyclovir and monthly pentamidine. Completed a treatment course of valgancicl ovir for CMV reactivation on 12/16/15. His most recent CMV PCR on 01/03/16 remains undetected. Immune reconstitution panel collected 11/22/15 showed normal total T cells with increased CD8 + T cell subsets, normal total NK cells, decreased B cells with decreased margarita B cells and minimal immune activation with CD4 count 385. Post transplant vaccines currently on hold du e to azacitidine maintenance therapy. --> continue current antimicrobials; if pt remains clinically stable on low dose prednisone , d/c posaconazole next visit --> next pentamidine due 01/28/16 --> due to CMV reactivation prior to day +100, monitor PCRs q1-2 weeks through day +270 Lab Results Component Value Date CMVQUANTPCR Undetected 01/03/2016 CMVQUANTPCR Undetected 12/27/2015 CMVQUANTPCR Undetected 12/23/2015 CMVQUANTPCR Undetected 12/13/2015 4. Fluid, Electrolyte and Nutrition: Pt reports a good appetite. Continues to eat well with adequate po fluid intake. Continues with intermittent nausea not requiring antiemetics. His electrolytes are reviewed and are within [...] tacrolimus tapers 6. Follow up --> RTC for clinic to f/u with me, begin c4 azacitidine on 01/24/16, sooner prn [facility] [address] Mailcode: [address] [place] [address] documented in this enc ounter [...] 2018 | Visit | Malignancy | [address] | | | | | | [facility] | | | | | | [place], [place] | | | | | | [address] | | | | | | [phone] | | | | | | | | +--------+---------+ + + + documented as of this encounter Visit Diagnoses + + | Diagnosis | + + | 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
--- OUTSIDE RECORDS SUMMARY | ~2019-05-17 | XMS | Encounter Summary ---
Demographics + + + | Address | [address] | | | [place] [address] | + + + | Home Phone [...] Team Providers + +------+ + | Care Event Management Consultant Name | Role | Phone [...] [address] | | | | | | [place], [place] | | | | | | [address] | | | | | | [phone] | | | +--------+ + + + [...] | | | | | | [place], [place] | | | | | | [address] | | | | | | [phone] | | | | | | | | +--------+---------+ + + + documented as of this encounter Visit Diagnoses Not on filedocumented in this encounter"
--- OUTSIDE RECORDS SUMMARY | ~2019-05-17 | XMS | Encounter Summary ---
Demographics + + + | Address | [address] | | | [place] [address] | + + + | Home Phone [...] Team Providers + +------+ + | Care Mine Safety Director Name | Role | Phone | [...] | +--------+ + + + + | 10/21/ | Clinical | Center for | | Lab Draw | | 2019 | Support | Hematologic | | | | | Staff | Malignancies at | | | | | | [facility] | | | | | | [address] | | | | | | [place] [place] Mailcode: | | | | | | [id number] [place] | | | | | | [place], | | | | | | [place] [address] | | | | | | [phone] | | | +--------+ + + + [...] this encounter Progress Notes Lincoln Hermosillo - 10/21/2018 11:45 AM PDTVenipuncture performed in clinic. Sample obtained f elly right AC. Patient tolerated the procedure well. documented in this encount er Plan of [...] Rd | | | | | | [place], [place] | | | | | | [address] | | | | | | [phone] | | | | | | | | +--------+---------+ + + + documented as of this encounter Procedures + +--------+ + + + | Procedure Name | Priori | Date/Time | Associated Diagnosis | Comments | | | ty | | | | + +--------+ + + + | CBC+DIFF,POC | Routin | 10/21/2018 | Immunocompromised | Results for this | | | e | 11:56 AM | state associated | procedure are in the | | | | PDT | with stem cell | results section. | | | | | transplant (HCC) | | + +--------+ + + + | CMP, POC (BMP+LFT) | Routin | 10/21/2018 | Immunocompromised | Results for this | | | e | 11:56 AM | state associated | procedure are in the | | | | PDT | with stem cell | results section. | | | | | transplant ([facility]) | | + +--------+ + + + | VITAMIN D, | Routin | 10/21/2018 | Hx of allogeneic | Results for this | | 25-HYDROXY, SERUM | e | 11:39 AM | stem cell transplant | procedure are in the | | | | PDT | ([facility]) Vitamin D | results section. | | | | | deficiency | | + +--------+ + + + | TSH | Routin | 10/21/2018 | Hx of allogeneic | Results for this | | | e | 11:39 AM | stem cell transplant | procedure are in the | | | | PDT | ([facility]) Personal | results section. | | | | | history of diseases | | | | | | of the blood and | | | | | | blood-forming organs | | | | | | and certain | | | | | | disorders involving | | | | | | the immune mechanism | | | | | | | | + +--------+ + + + | HEMOGLOBIN A1C, | Routin | 10/21/2018 | Personal history | Results for this | | BLOOD | e | 11:39 AM | of diseases of the | procedure are in the | | | | PDT | blood and | results section. | | | | | blood-forming organs | | | | | | and certain | | | | | | disorders involving | | | | | | the immune mechanism | | | | | | Hx of allogeneic | | | | | | stem cell transplant | | | | | | (HCC) | | + +--------+ + + + documented in this encounter Results CMP, POC (BMP+LFT) (10/21/2018 11:56 AM PDT) + +---------+ + + + [...] CO2, | 31 (H) | 22 - 28 mmol/L | [facility] - | | | [...] + + + | AST, CMP | 33 | 0 - 41 U/L | [facility] [...] + + | PROTEIN | 7.3 | 6.4 - 8.2 g/dL | [facility] - | | | [...] [facility] | [address] | [place], [place] | | | [facility] POINT OF CARE | [facility] | [address] | | | TESTS | | | | + + + + + CBC+DIFF,POC (10/21/2018 11:56 AM PDT) + + + + + [...] + + + | RBC POC | 4.45 (L) | 4.50 - 6.00 | [facility] - | | | | | 10*6/uL | [facility] | | | | | | [address] | | | | | | OF CARE | | | | | | TESTS | | + + + + + + | HGB POC | 13.5 | 13.5 - 17.5 | [facility] - | | | | | g/dL | [facility] | | | | | | [facility] POINT | | | | | | OF CARE | | | | | | TESTS | | + + + + + + | HCT POC | 40.7 (L) | 41.0 - 53.0 % | [facility] - | | | | | | [facility] | | | | | | RUHTIE CARTER | | | | | | OF CARE | | | | | | TESTS | | + + + + + + | MCV POC | 91.5 | 80.0 - 100.0 fL | [facility] - | | | | | | [facility] | | | | | | RUTHIE CARTER | | | | | | OF CARE | | | | | | TESTS | | + + + + + + | MCH POC | 30.3 | 27.0 - 34.0 pg | [facility] - | | | | | | [facility] | | | | | | RUTHIE CARTER | | | | | | OF CARE | | | | | | TESTS | | + + + + + + | MCHC POC | 33.2 | 32.0 - 36.0 | [facility] - | | | | | g/dL | [facility] | | | | | | RUTHIE CARTER | | | | | | OF CARE | | | | | | TESTS | | + + + + + + | RDW SD, POC | 41.8 | 35.1 - 46.3 fL | [facility] - | | | | | | [facility] | | | | | | [facility]UTHIE CARTER | | | | | | OF CARE | | | | | | TESTS | | + + + + + + | PLT POC | 265 | 150 - 400 | [facility] - [...] + + + + | NEUTROPHIL% | 53.3 | 50.0 - 70.0 % | [facility] - | | | POC | | | [facility] | | | | | | [facility] POINT | | | | | | OF CARE | | | | | | TESTS | | + + + + + + | LYMPH% POC | 36.4 | 18 - 42 % | [facility] [...] + + + | LYMPH# POC | 3.2 | 1.0 - 4.8 | [facility] - [...] [facility] | [address] | [place], [place] | | | [facility] | [address] | [address] | | | TESTS | | | [...] | + + + + + | [facility] | [address] | [place] [address] | | | SERVICES, CORE | PARK [...] + + + | [facility] | [address] | [place] [address] | | | SERVICES, CORE | [address] [...] | [facility] | | considered for monitoring regional intermodal truck driver glycemic control in patients with: | LABORATORY [...] | + + + + + | [facility] | [address] | [place] [address] | | | SERVICES, SPECIAL | [address] | | | | IMM + COAG | | | | + + + + + documented in this encounter Visit Diagnoses + + | Diagnosis | + + | Personal history of diseases of the blood and blood-forming organs and certain | | disorders involving the immune mechanism | + + | Hx of allogeneic stem cell transplant (HCC) | + + | Vitamin D deficiency | + + | 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
--- OUTSIDE RECORDS SUMMARY | ~2019-05-17 | XMS | Encounter Summary ---
Demographics + + + | Address | [address] | | | [place] [address] | + + + | Home Phone [...] Providers + +------+ + | Care Wire Drawing Die Maker Name | Role | Phone | + +------+ + | Zayda Hinton | PCP | | + +------+ + Encounter Details +--------+ + + + + | Date | Type | Department | Care Team | Description | +--------+ + + + + | 11/28/ | MyChart | Orthopaedics at | | Surgery Information | | 2019 | Encounter | [facility] [address] | | | | | [address] Mailcode: [facility] | | | | | | [facility] | | | | | | and Healing, | | | | | | | | | | | | [place], [place] | | | | | | [address] | | | | | | [phone] | | | +--------+ + + + [...] Rd | | | | | | [place], [place] | | | | | | [address] | | | | | | [phone] | | | | | | | | +--------+---------+ + + + documented as of this encounter Visit Diagnoses Not on filedocumented in this encounter"
--- OUTSIDE RECORDS SUMMARY | ~2019-05-17 | XMS | Encounter Summary ---
Demographics + + + | Address | [address] | | | [place] [address] | + + + | Home Phone [...] Providers + +------+ + | Care Clinical Documentation Specialist Name | Role | Phone | + +------+ + | Zayda Hinton | PCP | | + +------+ + Encounter Details +--------+ + + + + | Date | Type | Department | Care Team | Description | +--------+ + + + + | 03/15/ | Pharmacy | Outpatient Retail | | | | 2016 | Visit | Clinic Pharmacy | | | | | | [address] | | | | | | [place], | | | | | | [place] [address] | | | +--------+ + + + [...] 2018 | Visit | Malignancy | [address] [facility] | | | | | | [address] | | | | | | [place], [place] | | | | | | [address] | | | | | | [phone] | | | | | | | | +--------+---------+ + + + documented as of this encounter Visit Diagnoses Not on filedocumented in this encounter"
--- OUTSIDE RECORDS SUMMARY | ~2019-05-17 | XMS | Encounter Summary ---
Demographics + + + | Address | [address] | | | [place] [address] | + + + | Home Phone [...] Providers + +------+ + | Care Hat Binder Name | Role | Phone | + [...] Description | +--------+--------+ + + + | 02/27/ | Refill | Center for | Aspen Cummins FNP | Refill Request | | 2016 | | Hematologic | [address] | | | | | Malignancies at | [address] | | | | | [place] | [place], [place] | | | | | [address] | [address] | | | | | [place] Mailcode: | [phone] | | | | | [facility] | | | | | | [place], | | | | | | [place] [address] | | | | | | [phone] | | | +--------+--------+ + + + [...] Rd | | | | | | [place] | | | | | | [address] | | | | | | [phone] | | | | | | | | +--------+---------+ + + + documented as of this encounter Visit Diagnoses Not on filedocumented in this encounter"
--- OUTSIDE RECORDS SUMMARY | ~2019-05-17 | XMS | Encounter Summary ---
Demographics + + + | Address | [address] | | | [place] [address] | + + + | Home Phone [...] Team Providers + +------+ + | Care Farmworker Egg Producing Farm Name | Role | Phone | + +------+ + | Zayda Hinton | PCP | | + +------+ + Encounter Details +--------+ + + + + | Date | Type | Department | Care Team | Description | +--------+ + + + + | 12/19/ | Procedure | 6A Intra Op [facility] | | | | 2019 | Pass | [facility] | | | | | | Admitting Desk | | | | | | Located on the 9 | | | | | | floor [address] | | | | | | [address] | | | | | | [place], [place] | | | | | | [address] | | | +--------+ + + + [...] Rd | | | | | | [place], [place] | | | | | | [address] | | | | | | [phone] | | | | | | | | +--------+---------+ + + + documented as of this encounter Visit Diagnoses Not on filedocumented in this encounter"
--- OUTSIDE RECORDS SUMMARY | ~2019-05-17 | XMS | Encounter Summary ---
Demographics + + + | Address | [address] | | | [place] [address] | + + + | Home Phone [...] Team Providers + +------+ + | Care Crop Adjuster Name | Role | Phone | + [...] 08/06/ | Refill | Center for | Yari Garcia MD | Refill Request | | 2018 | | Hematologic | [address] [facility] | | | | | Malignancies at | [address] [facility] | | | | | [address] | [place], [place] | | | | | [address] [facility] | [address] | | | | | [facility] Mailcode: | [phone] | | | | | [id number] [address] | | | | | | [place], | | | | | | [place] [address] | | | | | | [phone] | | | +--------+--------+ + + + [...] Rd | | | | | | [place] | | | | | | [address] | | | | | | [phone] | | | | | | | | +--------+---------+ + + + documented as of this encounter Visit Diagnoses Not on filedocumented in this encounter"
--- OUTSIDE RECORDS SUMMARY | ~2019-05-17 | XMS | Encounter Summary ---
Demographics + + + | Address | [address] | | | [place] [address] | + + + | Home Phone [...] Team Providers + +------+ + | Care Contracts Representative Name | Role | Phone | [...] | 2018 | | Hematologic | [address] [facility] | | | | | Malignancies at | [facility] | | | | | [address] | [place], [place] | | | | | [address] [facility] | [address] | | | | | [facility] Mailcode: | [phone] | | | | | [facility] [place] | | | | | | [place], | | | | | | [place] [address] | | | | | | [phone] | | | +--------+--------+ + + + [...] 2019 | Visit | Malignancy | [address] [facility] | | | | | | [address] | | | | | | [place] | | | | | | [address] | | | | | | [phone] | | | | | | | | +--------+---------+ + + + documented as of this encounter Visit Diagnoses Not on filedocumented in this encounter"
--- OUTSIDE RECORDS SUMMARY | ~2019-05-17 | XMS | Encounter Summary ---
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 | leukemia (AML), M4 | | | | Malignancies at | [address] | (HCC)- primary | | | | [place] | [place], [place] | induction failure | | | | [address] | [address] | (Primary Dx); S/P | | | | [place] Mailcode: | [phone] | allogeneic bone | | | | [facility] | | marrow transplant | | | | [place], | | ([facility]LY [facility]) | | | | [place] [address] | | | | | | [phone] | | | +--------+ + + + [...] Rd | | | | | | [place], [place] | | | | | | [address] | | | | | | [phone] | | | | | | | [...] - [place] | [address] | [place], [place] | | | [facility] POINT OF CARE | [address] | [address] | | | TESTS | | | [...] [place] | [address] | [place], [place] | | | [facility] POINT OF CARE | [address] | [address] | | | TESTS | | | [...] + + | [facility] | [address] [facility] | [place] [address] | | | SERVICES, CORE | PARK [...] | [facility] | [address] | [place] [address] | | | SERVICES, INDRA | PARK [...]
--- OUTSIDE RECORDS SUMMARY | ~2019-05-17 | XMS | Encounter Summary ---
Demographics + + + | Address | [address] | | | [place] [address] | + + + | Home Phone [...] Team Providers + +------+ + | Care Team Psychologist Name | Role | Phone | [...] | Hematology | Diagnoses | Jose | [facility] | | | | Malignancy | 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, | [address] | [address] | | | | | not having | [address] | Mailcode: | | | | | achieved | [facility] [place] | [facility] | | | | | remission | [address] | [place] | | | | | | Phone: | Pavilion | | | | | Procedures | [phone] | [place], [place] | | | | | Post BMT | Fax: | [address] | | | | | Auth to | [phone] | Phone: | | | | | included | | [phone] | | | | | facility, | | Fax: | | | | | diagnostics, | | [phone] | | | | | office | [...] [facility] | | | | | | [address] | | | | | | [place] Mailcode: | | | | | | [facility] [place] | | | | | | [place], | | | | | | [place] [address] | | | | | | [phone] | | | +--------+ + + + [...] Rd | | | | | | [place], [place] | | | | | | [address] | | | | | | [phone] | | | | | | | [...] TOTAL,BILI | | PDT | ([facility])- primary | results section. | | DIRECT,ALK [...] [place] | [address] | [place], [place] | | | RUTHIE CARTER OF KRISTA | [facility] | [address] | | | TESTS | | | [...] [place] | [address] | [place], [place] | | | RUTHIE CARTER OF [place]STA | [address] | [address] | | | TESTS | | | [...] + | [facility] | [address] [facility] | [place] [address] | | | SERVICES, SPECIAL | WALLY [...] [facility] | [address] | [place] [address] | | | KOLE, CORE | PARK [...] [facility] | [address] | [place] [address] | | | SERVICES, CORE | WALLY [...]
--- OUTSIDE RECORDS SUMMARY | ~2019-05-17 | XMS | Encounter Summary ---
Demographics + + + | Address | [address] | | | [place] [address] | + + + | Home Phone [...] Team Providers + +------+ + | Care Dean Of Faculty Name | Role | Phone | + [...] | | | | Christian Barry | [place], [place] | | | | | [address] | [address] | | | | | [address] Mailcode: | [phone] | | | | | [facility] | | | | | | [place], | | | | | | [place] [address] | | | | | | [phone] | | | +--------+--------+ + + + [...] Rd | | | | | | [place] | | | | | | [address] | | | | | | [phone] | | | | | | | | +--------+---------+ + + + documented as of this encounter Visit Diagnoses Not on filedocumented in this encounter"
--- OUTSIDE RECORDS SUMMARY | ~2019-05-17 | XMS | Encounter Summary ---
Demographics + + + | Address | [address] | | | [place] [address] | + + + | Home Phone [...] Team Providers + +------+ + | Care Cashier Name | Role | Phone | + +------+ + | No Pcp Per Patient | PCP | Unavailable | + +------+ + Encounter Details +--------+------+ + + + | Date | Type | Department | Care Team | Description | +--------+------+ + + + | 09/03/ | Lab | Laboratory, | | Acute myelomonocytic | | 2016 | | Specimen Collection | | leukemia in | | | | at [facility] 3[address] Floor | | remission (HCC) | | | | [address] | | | | | | [place], | | | | | | [place] [address] | | | | | | [phone] | | | +--------+------+ + + + [...] | Visit | Malignancy | [address] [facility] | | | | | | [address] | | | | | | [place], [place] | | | | | | [address] | | | | | | [phone] | | | | | | | | +--------+---------+ + + + documented as of this encounter Procedures + +--------+ + + + | Procedure Name | Priori | Date/Time | Associated Diagnosis | Comments | | | ty | | | | + +--------+ + + + | TACROLIMUS, WHOLE | Routin | 09/03/2016 | Acute | Results for this | | BLOOD | e | 11:26 AM | myelomonocytic | procedure are in [...] | Test performed by immunoassay using [employer] Executive Producer i2000. 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
--- OUTSIDE RECORDS SUMMARY | ~2019-05-17 | XMS | Encounter Summary ---
Demographics + + + | Address | [address] | | | [place] [address] | + + + | Home Phone [...] Team Providers + +------+ + | Care Program Lead Name | Role | Phone | + +------+ + | Zayda Hinton | PCP | | + +------+ + Encounter Details +--------+ + + + + | Date | Type | Department | Care Team | Description | +--------+ + + + + | 07/16/ | Pharmacy | Specialty Pharmacy | | | | 2016 | Visit | Services [address] | | | | | | [address] | | | | | | [place], [place] | | | | | | [address] | | | | | | [phone] | | | +--------+ + + + [...] Rd | | | | | | [place], [place] | | | | | | [address] | | | | | | [phone] | | | | | | | | +--------+---------+ + + + documented as of this encounter Visit Diagnoses Not on filedocumented in this encounter"
--- OUTSIDE RECORDS SUMMARY | ~2019-05-17 | XMS | Encounter Summary ---
Demographics + + + | Address | [address] | | | [place] [address] | + + + | Home Phone [...] Team Providers + +------+ + | Care Crew Person Name | Role | Phone | [...] [address] | | | | | [place] | [place], [place] | | | | | [address] | [address] | | | | | [address]bi Mailcode: | [phone] | | | | | [facility] | | | | | | [place], | | | | | | [place] [address] | | | | | | [phone] | | | +--------+ + + + [...] 2019 | Visit | Malignancy | [address] [facility] | | | | | | [address] | | | | | | [place] | | | | | | [address] | | | | | | [phone] | | | | | | | | +--------+---------+ + + + documented as of this encounter Visit Diagnoses Not on filedocumented in this encounter"
--- OUTSIDE RECORDS SUMMARY | ~2019-05-17 | XMS | Encounter Summary ---
Demographics + + + | Address | [address] | | | [place] [address] | + + + | Home Phone [...] Providers + +------+ + | Care Conveyor Technician Name | Role | Phone | [...] | | | | | achieved | [place], [place] | [facility] | | | | | remission | [address] | [place] | | | | | | Phone: | [place]a | | | | | Procedures | [phone] | [place], [place] | | | | | Post BMT | Fax: | [phone] | | | | | Auth to | [phone] | Phone: | | | | | included | | [phone] | | | | | facility, | | Fax: | | | | | diagnostics, | | [phone] | | | | | office | [...] | (Primary Dx) | | | | [facility] | [facility] [place] | | | | | [address] | [address] | | | | | [place] Mailcode: | [phone] | | | | | [facility] [place] | | | | | | [place], | | | | | | [place] [address] | | | | | | [phone] | | | +--------+---------+ + + + [...] Donor: MMURD (DPB1 permissive antigen mismatch, male, [id number]) Identifying Data: Khurram Kelly is a 26 [...] his L ankle. He was evaluated at [place] ED on 06/[address] angiogram negative [...] myelomonocytic leukemia. He was referred to [facility] for further evaluation and man agement of his newly dx'd AML. Pt was admitted to [facility] on 05/26/15. Peripheral blood was [...] CD34, variable CD56, variable CD117, and dim QH131-pokdp mickey; promonocyte immunophenotype (70% by flow): CD11b, [...] s/p 6 cyclesof azacitidine and [facility] for [facility] follow-up. Interim History: Khurram returns to clinic and is feeling generally well. Cardiovascular endurance is increasing and he is able to hike/walk up hills without restriction currently. Continues to have intermittent light-headedness with standing. Blurry vision is stable- also relates to having "floating" sensation in head. Planning on moving back to [place] this summer. Looking forward to upcoming retreat [...] 11/09/2016 Assessment/Plan: 1. Hematology: Khurram Kelly is [id number] months s/p tBuCy-conditioned unr elated donor PBSC [...] indicated providing peripheral counts remain stable 2. 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 He initially responded but flared during taper. He also developed low-level nausea and abd discomfort concerning for GvHD, emp irically treated with oral non-absorbables with resolution. - He had tapered prednisone to 10 mg po daily when he developed a rash for which he was see n in the ED in [place] in late 01/21. Prednisone was increased back [...] one patient with minimal guidance from the death surveys coder (not the alex death surveys coder). 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
--- OUTSIDE RECORDS SUMMARY | ~2019-05-17 | XMS | Encounter Summary ---
Demographics + + + | Address | [address] | | | [place] [address] | + + + | Home Phone [...] Providers + +------+ + | Care Director Digital Marketing Name | Role | Phone | + [...] | | | | | achieved | [facility] [place] | [facility] | | | | | remission | [address] | [place] | | | | | | Phone: | [facility] | | | | | Procedures | [phone] | [place], [place] | | | | | Post BMT | Fax: | [address] | | | | | Auth to | [phone] | Phone: | | | | | included | | [phone] | | | | | facility, | | Fax: | | | | | diagnostics, | | [phone] | | | | | office | | | | | | | visits and | | | | | | | surgery | | | +--------+---------+ + + + + Encounter Details +--------+---------+ + + + | Date | Type | Department | Care Team | Description | +--------+---------+ + + + | 10/03/ | Office | Center for | Saunders, Em L, | Acute myeloid | | 2016 | Visit | Hematologic | PA-C [address] [facility] | leukemia (AML), M4 | | | | Malignancies at | [address]abier [address] | ([facility])- primary | | | | [facility] | [place], [place] | induction failure | | | | [address] [facility] | [address] | (Primary Dx); S/P | | | | Wally Burger Mailcode: | [phone] | allogeneic bone | | | | [facility] [place] | | marrow transplant | | | | [facility] [place], | | ([facility]) | | | | [place] [address] | | | | | | [phone] | | | +--------+---------+ + + + [...] + | Blood Pressure | 122/78 | 10/04/2015 12:28 PM | | | | | PDT | | + + + + + | Pulse | 80 | 10/04/2015 12:28 PM | | | | | PDT | | + + + + + | Temperature | 36.9 C (98.4 F) | 10/04/2015 12:28 PM | | | | | PDT | | + + + + + | Respiratory Rate | 16 | 10/04/2015 12:28 PM | | | | | PDT | | + + + + + | Oxygen Saturation | 99% | 10/04/2015 12:28 PM | | | | | PDT | | + + + + + | Inhaled Oxygen | - | - | | | Concentration | | | | + + + + + | Weight | 74.7 kg (164 lb 10.9 | 10/04/2015 12:28 PM | | | | oz) | PDT | | + + + + + | Height | - | - | | + + + + + | Body Mass Index | 21.29 | 08/18/2015 4:35 PM | | | | | PST | | + + + + + documented in this encounter Patient Instructions Patient Instructions Em Saunders PA-C - 10/04/2015 9:06 AM PDT-Take your temperature regularly (3-4 x daily) and to call immediately for a temperature of 100.4 or greater. -We'll call you to adjust your Tacrolimus if necessary. -For seasonal allergies okay to start taking Zyrtec (cetirizine) 10 mg once daily. You can pick this up over the counter at the store. -If you do not have a bowel movement by tomorrow morning then plan to resume taking docusat e 1 tablet in the morning. If still no bowel movement by tomorrow evening then start taking docusate 1 tablet twice daily to keep bowel movements regular. documented in this encounter Progress Notes Em Saunders PA-C - 10/04/2015 9:07 AM PDTFormatting of this note might be different f rom the original. 10/04/2015 [facility] Physician: Yari Garcia MD Local Oncologist: Yari Garcia MD PCP: Pending Pcp ADDITION Hematologic Malignancy: Primary refractory AML Conditioning regimen: tBuCy Date of transplant: 08/27/2015 (two day 0s) Donor: MM URD (DPB1 permissive antigen mismatch, male, [id number]) Hematologic History: Khurram Kelly is a 25 y.o. CM with a PMH of pericarditis who was [facility] ntil 03/13/15 (the night of his [...] his L ankle. He was evaluated at [facility] [facility] ED on 06/[address] angiogram negative [...] CD34, variable CD56, variable CD117, and dim [id number] mickey; promonocyte immunophenotype (70% by flow): CD11b, [...] of primary refractory AML, currently d ay +38, s/p tBuCy conditioned MM URD SCT. Interval History: presents to clinic today for his routine scheduled visit. He is accompanied by his who is his caregiver in clinic today. He had episode of constipation over the we ekend. He took docusate and MOM and had successful BM on Sat evening then with loose BM on S un morning. He has not had a BM in the past 24 hours and is holding the docusate for today. With the constipation he had nausea and some abdominal pain, now resolved after BM. He has b een doing well since yesterday. He does continue to take Zofran BID ATC. He continues to hav e an appetite and is taking in 3 meals, snacks, and over 2 liters of fluids per day. He cont inues to remain active and is walking daily. No fevers. Review of Systems: General: [...] of breath. Gastrointestinal: +nausea resolved with Zofran BID Denies indigestion, vomiting, diarrhea, constipation, abdominal pain, bloody stools or dark tarry stools. Skin: +skin rash, nearly resolved Psychological: No abnormal anxiety, depression. Remainder of ROS is otherwise negative. Current Medication List Name Sig ACYCLOVIR 800 MG TABLET Take 1 tablet by mouth two times daily. ALPRAZOLAM 0.5 MG TABLET Take 2 tablets by mouth three times daily as needed for anxiety. AMLODIPINE 5 MG TABLET Take one-half tablet by mouth once daily. CETIRIZINE 10 MG TABLET Take 1 [...] d aily. PREDNISONE 10 MG TABLET Take 30 mg (three tablets) by mouth once daily PROCHLORPERAZINE MALEATE 5 MG TABLET Take 1 [...] thin film to affected areas. Vitals: BP 122/78 | Pulse 80 | Temp (Src) 36.9 C (98.4 F) (Oral) | RR 16 | Wt 74.7 kg (164 lb 1 0.9 oz) | SpO2 99% | BMI 21.29 kg/(m^2) Pre-transplant weight 165 pounds Physical Exam: General: This is a male in no acute distress, sitting up in chair. HEENT: Sclerae anicteric. Mucosa pink and moist without erythema or exudate. Skin: Hardly visible/nearly resolved erythematous rash to lower chest, abd, and thighs michelle at (front and back) Chest: Lungs clear to auscultation bilat. Normal effort. CV: RRR, no murmurs. Abdomen: S/NT/ND with NABS. No HSM appreciated. Extremities: Pulses strong and equal bilaterally. No c/c/e. Neuro: Alert and oriented x 3. Grossly nonfocal exam. CVC: Central line is a Neostar catheter w/o induration or inflammation. Laboratory Results: CBC with diff: Last 72 hours (or 3 results) Recent Labs 10/04/15 1243 WBC 13.1* HB 11.3* HCT 33.0* PLT 172 MONOPERC 10.7* BASOPERC 0.5 EOSPERC 4.6* Chemistries: Last 72 Hours (or 3 results): Recent Labs 09/10/15 2300 09/11/15 2313 09/12/15 2326 09/27/15 0918 09/27/15 1004 09/30/15 0757 09/30/15 0837 10/04/15 1225 10/04/15 1242 NA 144 143 142 < > -- 138 138 -- -- 138 K 3.7 3.9 3.9 < > -- 3.8 4.7 -- -- 4.4 CL 113* 109* 109* < > -- 101 96* -- -- 99 BICARB 21 25 25 < > -- 29 29 -- -- 27 BUN 22* 19 18 < > -- 16 17 -- -- 21* CR 0.91 0.94 0.96 < > -- 0.7 0.8 -- -- 0.8 GLU 90 95 121* < > -- 104* 85 -- -- 99 CA 8.1* 8.0* 8.3* < > -- 9.3 9.3 -- -- 9.3 AST 18 22 19 < > 15 -- -- 23 26 -- ALT 28 31 35 < > 63* -- -- 68* 88* -- AP 63 83 96 < > 73 -- -- 71 74 -- TBILI 0.5 0.5 0.4 < > 0.4 -- -- 0.2* 0.3 -- TP 5.8* 6.1* 6.1* < > 6.3* -- -- 6.3* 6.9 -- ALB 2.7* 2.9* 3.0* < > 3.4* -- -- 3.4* 3.9 -- ANIONGAP 10 9 8 -- [...] 5.96 x 10^6 per kg -BMT Day: +38 Pertinent Diagnostics: -Around day + 30 repeat marrow studies completed, per guidelines; BM Bx done 09/27/15: hypoc ellular marrow (30%) with trilineage hematopoiesis, no increase in blasts (less then 2%). Ge neTrails, and VNTR PENDING CBC reviewed and reveals anemia. Platelet [...] eruption of lymphocyte recovery and early mild wmbdy-fwodfu-fxjw disease. On 09/13, rash in volved ~15% BSA. Patient with progression of rash to chest, abd, back, upper arms bilat, thi ghs bilat (front and back); ~56% BSA at wrost on 09/14. Rash now nearly resolved in all areas. -Triamcinolone cream 0.1% TID to rash -Started Prednisone 1 mg/kg/d (35 mg BID), started on 09/15/15. -09/20 reduced steroids by 25% per Dr. Garcia, taper down prednisone to 35 mg in morning and 15 mg in late afternoon. -09/23 taper down by 50% from original dose per Dr. Garcia, prednisone 35 mg daily -taper prednisone down to 30 mg daily as of 09/29 -Plan for possible taper 10/06, will go down by 5 mg weekly if rash continues to improve. -IST as below Prophylaxis/Treatment: -Tacrolimus [...] Lab Results Component Value Date CMVQUANTPCR Undetected 09/27/2015 CMVQUANTPCR Undetected 09/21/2015 CMVQUANTPCR Undetected 09/12/2015 CMVQUANTPCR Undetected 09/05/2015 Antifungal: Posaconazole as of 09/15/15 with HD steroids for antifungal prophylaxis and we wi ll follow weekly Galactomannan assays. Lab Results Component Value Date GALACTO Negative 09/27/2015 PCP proph: Pentamidine IV for PCP prophlaxis [...] clinic PRN Plan: -Follow-up on 09/26 BMBx results -The tacrolimus dose will be adjusted when the tacrolimus trough is available. -Continue Triamcinolone cream to rash TID. -Taper prednisone down to 30 mg once daily. Next taper planned 10/07/15 if rash continues to improve. -Start Bactrim next visit if CBC remains stable. -Return to clinic 10/07/15 to see me, sooner prn. Em Saunders PA-C [facility] [place] [address] [facility] Mailcode: [place] [address] documented in this encounter Plan [...] [address] | | | | | | [place], [place] | | | | | | [address] | | | | | | [phone] | | | | | | | | +--------+---------+ + + + documented as of this encounter Results BMP PLUSPHIL CHM (10/07/2015 10:43 AM PDT) + +---------+ [...] [facility] | [address] | [place], [place] | | | RUTHIE CARTER OF KRISTA | [facility] | [address] | | | TESTS | | | [...] + + + + | [facility] | [address] | [place], [place] | | | [facility] POINT OF CARE | [address] | [address] | | | TESTS | | | [...] [facility] | [address] | [place] [address] | | | SERVICES, SPECIAL | WALLY [...] + + + + + | [facility] | [address] | [place] [address] | | | SERVICES, CORE | PARK [...] [facility] | [address] | [place] [address] | | | SERVICES, CORE | PARK [...]
--- OUTSIDE RECORDS SUMMARY | ~2019-05-17 | XMS | Encounter Summary ---
Demographics + + + | Address | [address] | | | [place] [address] | + + + | Home Phone [...] Team Providers + +------+ + | Care Services Host Name | Role | Phone | + +------+ + | Zayda Hinton | PCP | | + +------+ + Encounter Details +--------+ + + + + | Date | Type | Department | Care Team | Description | +--------+ + + + + | 12/09/ | Anesthesia | Preoperative | Tonya Nation | | | 2019 | Event | [facility] at | MD Mya [address] | | | | | [facility] | [address] | | | | | [address] | [place] [address] | | | | | Mail Code: [id number] | [phone] | | | | | [facility] | | | | | | and Healing, | | | | | | Building [address] | | | | | | [place], [place] | | | | | | [address] | | | | | | [phone] | | | +--------+ + + + [...] Rd | | | | | | [place], [place] | | | | | | [address] | | | | | | [phone] | | | | | | | | +--------+---------+ + + + documented as of this encounter Visit Diagnoses Not on filedocumented in this encounter"
--- OUTSIDE RECORDS SUMMARY | ~2019-05-17 | XMS | Encounter Summary ---
Demographics + + + | Address | [address] | | | [place] [address] | + + + | Home Phone [...] Providers + +------+ + | Care Senior Drafter Name | Role | Phone | + +------+ + | Zayda Hinton | PCP | | + +------+ + Encounter Details +--------+ + + + + | Date | Type | Department | Care Team | Description | +--------+ + + + + | 09/25/ | Pharmacy | Specialty Pharmacy | | | | 2015 | Visit | Services [address] | | | | | | [address] | | | | | | [place], [place] | | | | | | [address] | | | | | | [phone] | | | +--------+ + + + [...] Rd | | | | | | [place], [place] | | | | | | [address] | | | | | | [phone] | | | | | | | | +--------+---------+ + + + documented as of this encounter Visit Diagnoses Not on filedocumented in this encounter"
--- OUTSIDE RECORDS SUMMARY | ~2019-05-17 | XMS | Encounter Summary ---
Demographics + + + | Address | [address] | | | [place] [address] | + + + | Home Phone [...] Team Providers + +------+ + | Care Facility Planner Name | Role | Phone | + +------+ + | Pending Pcp Addition | PCP | Unavailable | + +------+ + Reason for Visit + + + | Reason | Comments | + + + | Ambulatory | Decitabine | | Chemotherapy | | + + [...] [address] | | | | | [place] | | [address] | | | | | DECITABINE | | [address] [facility], | | | | | INJECTION, 1 | | [place] | | | | | [place] | | [address] | | | | | CHM,IV | | Phone: | | | | | INFSN,1 HR | | [phone] | | | | | [place] CHM,IV | | Fax: | | | | | INFSN,ADDL | | [phone] | | | | | HR | | | +--------+--------+ + + + + Encounter Details +--------+ + + + + | Date | Type | Department | Care Team | Description | +--------+ + + + + | 07/24/ | Clinical | Center for | | Ambulatory | | 2016 | Support | Hematologic | | Chemotherapy | | | Staff | [facility] at [facility] | | (Decitabine) | | | | [address] | | | | | | Debi Burger Mailcode: | | | | | | [facility] [place] | | | | | | [place], | | | | | | [place] [address] | | | | | | [phone] | | | +--------+ + + + [...] + + + | Blood Pressure | 114/75 | 07/24/2015 8:37 AM | | | | | PST | | + + + + + | Pulse | 57 | 07/24/2015 8:37 AM | | | | | PST | | + + + + + | Temperature | 36.8 C (98.2 F) | 07/24/2015 8:37 AM | | | | | PST | | + + + + + | Respiratory Rate | 16 | 07/24/2015 8:37 AM | | | | | PST | | + + + + + | Oxygen Saturation | 100% | 07/24/2015 8:37 AM | | | | | PST | | + + + + + | Inhaled Oxygen | - | - | | | Concentration | | | | + + + + + | Weight | 83.1 kg (183 lb 3.2 | 07/24/2015 8:37 AM | | | | oz) | PST | | + + + + + | Height | - | - | | + + + + + | Body Mass Index | 23.21 | 07/15/2015 1:57 PM | | | | | PST | | + + + + + documented in this encounter Progress Notes Kassandra Levin RN - 07/24/2015 9:19 AM PSTFormatting of this note might be different from th e original. Chemotherapy Nurse Note Name: Khurram Kelly Date: 07/24/2015 Physician: Dr. Garcia Allergies: Khurram is allergic to chlorhexidine towelette. Pre-Chemotherapy Pain Score: Patient reports a pain level of 0 today. Nursing Assessment: Fever: no; Diarrhea: no; SOB / Cough: no; Nausea / Vomiting: no; Anemia / Fatigue: no; Cons tipation: no; Edema: no; S/S Bleeding: no; Mucositis: no; Urinary: no; Neuropathy: no; Rash: no. Pt reports he is drinking at least 2 liters per day and eating without difficulty. Pt wanted to know if labs will be drawn today. Told him, no. Will be drawn tomorrow. Pt Hct yesterday 21.5. Reviewed symptoms of anemia including SOB, ROJAS, increased fatigue/lethargy , dizziness/lightheadedness and/or feeling faint. He denies symptoms. States understanding to report symptoms if they develop. Can then decide if need PRBC transfusion. Labs: Lab Results Component Value Date WBC 1.19* 07/23/2015 HB 7.5* 07/23/2015 HCT 21.5* 07/23/2015 PLT 20* 07/23/2015 BUN 14 07/21/2015 CR 1.1 07/21/2015 Narrative: Pt here for Day 6, Cycle 1 Decitabine infusion. PICC line flushes easily, positive blood return noted. Chemotherapy was checked by 2 RNs. Decitabine was infused per chemotherapy protocol and co mpleted without adverse event. Positive blood return noted again post infusion. Pt dischar ged ambulatory from clinic with father. Refer to MAR and flowsheet for treatment [...] Rd | | | | | | [place], [place] | | | | | | [address] | | | | | | [phone] | | | | | | | [...] 42 mg in | New Bag | 07/24/19 | 42 mg | 258.4 | | | NaCl (PF) IV 42 mg (20 mg/m2 | | 16 10:15 | | mL/hr | | | 2.1 m2 Treatment plan recorded | | AM PST | | | | | BSA), intravenous, Administer | | | | | | | over 1 Hours, ONCE, 1 dose, Sat | | | | | | | 07/24/15 at 0845, HIGH RISK | | | | | | | MEDICATION-CHEMOTHERAPY , | | | | | | + +---------+ +-------+--------+------+ +---+---+ | | | +---+---+ + +-------+ +------+---+---+ | ondansetron (ZOFRAN) tablet 8 | Given | 07/24/19 | 8 mg | | | | mg 8 mg, oral, ONCE, 1 dose, Sat | | 16 8:42 | | | | | 07/24/15 at 0845 | | AM PST | | | | + +-------+ +------+---+---+ +---+---+ | | | +---+---+ documented in this encounter"
--- OUTSIDE RECORDS SUMMARY | ~2019-05-17 | XMS | Encounter Summary ---
Demographics + + + | Address | [address] | | | [place] [address] | + + + | Home Phone [...] Team Providers + +------+ + | Care Tangled Yarn Worker Name | Role | Phone | [...] | | | | | | [place], | | | | | | | [place] | | | | | | | [address] | | | | | | | Phone: | | | | | | | [phone] | | | | | | | Fax: | | | | | | | [phone] | +--------+--------+ + + + + Encounter [...] (HCC) (Primary Dx) | | | | [address] | [place], [place] | | | | | [address] | [address] | | | | | Debi Burger Mailcode: | [phone] | | | | | [facility] [place] | | | | | | [place], | | | | | | [place] [address] | | | | | | [phone] | | | +--------+---------+ + + + [...] MM URD (DPB1 permissive antigen mismatch, male, [id number]) Identifying Data: Khurram Kelly is a 25 [...] myelomonocytic leukemia. 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 Pt was admitted to [facility] on 05/26/15. Peripheral blood was sent [...] CD34, variable CD56, variable CD117, and dim [id number] mickey; promonocyte immunophenotype (70% by flow): CD11b, [...] one year anniversary, sooner p rn 2. Hgypl-tl-Aflz Disease: Skin bx due to mild rash [...] a peer support group or support at [facility], then felt this was no longer [...] [place] [facility] [place] [address] [facility] Mailcode: [place] [address] documented in this enc ounter [...] Rd | | | | | | [place], [place] | | | | | | [address] | | | | | | [phone] | | | | | | | | +--------+---------+ + + + documented as of this encounter Visit Diagnoses + + | Diagnosis | + + | 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
--- OUTSIDE RECORDS SUMMARY | ~2019-05-17 | XMS | Encounter Summary ---
Demographics + + + | Address | [address] | | | [place] [address] | + + + | Home Phone [...] Team Providers + +------+ + | Care Fleet Sales Manager Name | Role | Phone | [...] | | | [address] | [place], [place] | positive with [address] | | | | [address] Mailcode: | [address] | ); Medication | | | | [facility] | [phone] | actions (stop | | | | [facility] [place], | | acyclovir, start | | | | [place] [address] | | valcyte 900 mg BID); | | | | [phone] | | X-ray (get chest | | [...] Rd | | | | | | [place], [place] | | | | | | [address] | | | | | | [phone] | | | | | | | | +--------+---------+ + + + documented as of this encounter Visit Diagnoses Not on filedocumented in this encounter"
--- OUTSIDE RECORDS SUMMARY | ~2019-05-17 | XMS | Encounter Summary ---
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 | CENTER [facility] | | | HEALTH + | | | HEALING | + + + + + + + + | Performing | Address | City/State/Zipcode | Phone Number | | Organization | | | | + + + + + | [facility] | [address] | [place] [address] | | | [facility] | | | | | HEALTH + [...]
--- OUTSIDE RECORDS SUMMARY | ~2019-05-17 | XMS | Encounter Summary ---
Demographics + + + | Address | [address] | | | [place] [address] | + + + | Home Phone [...] Team Providers + +------+ + | Care Environmental Construction Engineer Name | Role | Phone | [...] + + + + | 04/19/ | Telephone | Center for | Aspen Cummins FNP | Medication | | 2017 | | Hematologic | [address] | Adjustment (IST: | | | | Malignancies at | [address] | Tacrolimus) | | | | [facility] | [place], [place] | | | | | [address] | [address] | | | | | [facility] Mailcode: | [phone] | | | | | [facility] | | | | | | [facility] [place], | | | | | | [place] [address] | | | | | | [phone] | | | +--------+ + + + [...] | | | | | | [place] | | | | | | [address] | | | | | | [phone] | | | | | | | | +--------+---------+ + + + documented as of this encounter Visit Diagnoses Not on filedocumented in this encounter"
--- OUTSIDE RECORDS SUMMARY | ~2019-05-17 | XMS | Encounter Summary ---
Demographics + + + | Address | [address] | | | [place] [address] | + + + | Home Phone [...] Providers + +------+ + | Care Drafter Automotive Design Name | Role | Phone | + [...] | +--------+ + + + + | 12/06/ | Telephone | Center for | Yari Garcia MD | Medication | | 2016 | | Hematologic | [address] | management | | | | [facility] | [address] | | | | | [address] | [place], [place] | | | | | [address] Mailcode: | [address] | | | | | [facility] [address] | [phone] | | | | | [place], | | | | | | [place] [address] | | | | | | [phone] | | | +--------+ + + + [...] Rd | | | | | | [place] | | | | | | [address] | | | | | | [phone] | | | | | | | | +--------+---------+ + + + documented as of this encounter Visit Diagnoses Not on filedocumented in this encounter"
--- OUTSIDE RECORDS SUMMARY | ~2019-05-17 | XMS | Encounter Summary ---
Demographics + + + | Address | [address] | | | [place] [address] | + + + | Home Phone [...] Team Providers + +------+ + | Care Vacuum Technician Name | Role | Phone | [...] [facility] 3rd Floor | | ([facility]) | | | | [address] | | | | | | [place], | | | | | | [place] [address] | | | | | | [phone] | | | +--------+------+ + + + [...] Rd | | | | | | [place], [place] | | | | | | [address] | | | | | | [phone] | | | | | | | [...] | | | PDT | transplant ([facility]) | results section. | + +--------+ + + + | CBC, WITH | Urgent | 11/02/2016 | S/P allogeneic | Results for this | | DIFFERENTIAL | | 9:56 AM | bone marrow | procedure are in the | | | | PDT | transplant ([facility]) | results section. | + +--------+ + + + | COMPLETE METABOLIC | Routin | 11/02/2016 | S/P allogeneic | Results for this | | SET | e | 9:56 AM | bone marrow | procedure are in the | | (NA,K,CL,CO2,BUN,CRE | | PDT | transplant ([facility]) | results section. | | AT,GLUC,CA,AST,ALT,B | [...] | | | PDT | transplant ([facility]) | results section. | + +--------+ + + + | PHOSPHORUS, PLASMA | Routin | 11/02/2016 | S/P allogeneic | Results for this | | | e | 9:56 AM | bone marrow | procedure are in the | | | | PDT | transplant ([facility]) | results section. | + +--------+ + + + | BILIRUBIN DIRECT | Routin | 11/02/2016 | S/P allogeneic | Results for this | | | e | 9:56 AM | bone marrow | procedure are in the | | | | PDT | transplant ([facility]) | results section. | + +--------+ + + + | URIC ACID, PLASMA | Routin | 11/02/2016 | S/P allogeneic | Results for this | | | e | 9:56 AM | bone marrow | procedure are in the | | | | PDT | transplant ([facility]) | results section. | + +--------+ + + + | MAGNESIUM, PLASMA | Routin | 11/02/2016 | S/P allogeneic | Results for this | | | e | 9:56 AM | bone marrow | procedure are in the | | | | PDT | transplant ([facility]) | results section. | + +--------+ + + + | LDH TOTAL, PLASMA | Routin | 11/02/2016 | S/P allogeneic | Results for this | | | e | 9:56 AM | bone marrow | procedure are in the | | | | PDT | transplant ([facility]) | results section. | [...] [facility] | [address] | [place] [address] | | | SERVICES, CORE | WALLY [...] | Test performed by immunoassay using [employer] Installation Supervisor i2000. . | [facility] | | Samples [...] [facility] | [address] | [place] [address] | | | SERVICES, SPECIAL | PARK [...] | + + + + + | [facility] | [address] | [place] [address] | | | SERVICES, CORE | WALLY [...] [facility] | [address] | [place] [address] | | | SERVICES, CORE | PARK [...] | + + + + + | [facility] | [address] | [place] [address] | | | SERVICES, CORE | WALLY [...] [facility] | [address] | [place] [address] | | | INDRA SHARIF | WALLY [...] [facility] | [address] | [place] [address] | | | SERVICES, CORE | PARK [...] | | | LABORATORY | | | [place] | | | SERVICES, | | | [...] + + + + + | [facility] | [address] | [place] [address] | | | SERVICES, CORE | [address] | | | + + + + + documented in this encounter Visit Diagnoses + + | Diagnosis | + + | 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
--- OUTSIDE RECORDS SUMMARY | ~2019-05-17 | XMS | Encounter Summary ---
Demographics + + + | Address | [address] | | | [place] [address] | + + + | Home Phone [...] Team Providers + +------+ + | Care Button Tacker Name | Role | Phone | + +------+ + | Zayda Hinton | PCP | | + +------+ + Encounter Details +--------+ + + + + | Date | Type | Department | Care Team | Description | +--------+ + + + + | 12/23/ | Telephone | Orthopaedics at | Lobo Jeffers, | | | 2019 | | [facility] [address] | [address] | | | | | [place] Mailcode: CH12A | [address] | | | | | [facility] | [place], [place] | | | | | and [place], | [address] | | | | | [facility] | [phone] | | | | | Floor [place], [place] | | | | | | [address] | | | | | | [phone] | | | +--------+ + + + [...] | | | | | | [place], [place] | | | | | | [address] | | | | | | [phone] | | | | | | | | +--------+---------+ + + + documented as of this encounter Visit Diagnoses Not on filedocumented in this encounter"
--- OUTSIDE RECORDS SUMMARY | ~2019-05-17 | XMS | Encounter Summary ---
Demographics + + + | Address | [address] | | | [place] [address] | + + + | Home Phone [...] Providers + +------+ + | Care Care Director Rn Name | Role | Phone | [...] | | myelomonocyt | [address] | [address] | | | | | ic leukemia, | [address] | [place] | | | | | not having | [address] | Mailcode: | | | | | achieved | [place], [place] | [id number] | | | | | remission | [address] | [facility] | | | | | | Phone: | Pavilion | | | | | Procedures | [phone] | [place], [place] | | | | | Post BMT | Fax: | [address] | | | | | Auth to | [phone] | Phone: | | | | | included | | [phone] | | | | | facility, | | Fax: | | | | | diagnostics, | | [phone] | | | | | office | | | | | | | visits and | | | | | | | surgery | | | +--------+---------+ + + + + Encounter Details +--------+ + + + + | Date | Type | Department | Care Team | Description | +--------+ + + + + | 07/26/ | Diagnostic | Center for | | Lab Draw | | 2017 | Visit | Hematologic | | | | | | Malignancies at | | | | | | [facility] | | | | | | [address] | | | | | | [place] Mailcode: | | | | | | [facility] | | | | | | [place], | | | | | | [place] [address] | | | | | | [phone] | | | +--------+ + + + [...] this encounter Progress Notes Lincoln Hermosillo - 07/26/2016 9:00 AM PSTLeft AC accessed with a 23 [...] [place] | | | | | | [address] | | | | | | [phone] | | | | | | | | +--------+---------+ + + + documented as of this encounter Procedures + +--------+ + + + | Procedure Name | Priori | Date/Time | Associated Diagnosis | Comments | | | ty | | | | + +--------+ + + + | BMP + MAG, POC CHM | Routin | 07/26/2016 | S/P allogeneic | Results for this [...] + + | CBC+DIFF,POC | Routin | 07/26/2016 | S/P allogeneic | Results for this | | | e | 9:35 AM | bone marrow | procedure are in the | | | | PST | transplant (HCC) | results section. 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) | | + +--------+ + + + | LIVER SET | Urgent | 07/26/2016 | S/P allogeneic | Results for this | | (AST,ALT,BILI | | 9:21 AM | bone marrow | [...] encounter Results BMP + MAG, POC CHM (07/26/2016 9:42 AM PST) + +---------+ + + + [...] [facility] | [address] | [place], [place] | | | RUTHIE CARTER OF [facility] | [address] | [address] | | | TESTS | | | | + + + + + CBC+DIFF,POC (07/26/2016 9:35 AM PST) + + + + + + | Component | Value | Ref Range | Performed | Pathologist | | | | | At | Signature | + + + + + + | WBC POC | 8.7 | 4.4 - 11.0 | [facility] - [...] + + + | MCV POC | 95.2 | 80.0 - 96.0 fL | [facility] | | | | | | [facility] | | | | | | RUTHIE CARTER | | | | | | OF CARE | | | | | | TESTS | | + + + + + + | MCH POC | 32.5 (H) | 28.5 - 32.3 pg | [...] + + | RDW SD, POC | 42.9 | 35.1 - 46.3 fL | [facility] [...] + + + | MPV POC | 7.8 (L) | 9.7 - 12.3 fL | [facility] | | | | | | [facility] | | | | | | [facility] | | | | | | OF CARE | | | | | | TESTS | | + + + + + + | NEUTROPHIL% | 51.5 | 50.0 - 70.0 % | [facility] - | | | POC | | | [facility] | | | | | | [facility], POINT | | | | | | OF CARE | | | | | | TESTS | | + + + + + + | LYMPH% POC | 26.2 | 18 - 42 % | [facility] | | | | | | [facility] | | | | | | [facility]INT | | | | | | OF CARE | | | | | | TESTS | | + + + + + + | MONO %, POC | 10.6 (H) | 3.5 - 9.0 % | [facility] | | | | | | [facility] | | | | | | [facility], POINT | | | | | | OF CARE | | | | | | TESTS | | + + + + + + | EOS %, POC | 11.4 (H) | 1.0 - 3.0 % | [...] + + + | LYMPH# POC | 2.3 | 1.0 - 4.8 | [facility] - [...] + + | EOS #, POC | 1.0 (H) | 0.0 - 0.5 | [facility] [...] [facility] | [address] | [place], [place] | | | [facility] OF CARE | [address] | [address] | | | TESTS | | | | + + + + + LIVER SET (AST,ALT,BILI TOTAL,BILI DIRECT,ALK PHOS,ALB,PROT TOTAL) (07/26/2016 9:21 AM PST ) + +---------+ + + [...] + + + | ALK PHOS | 118 | 53 - 128 U/L | [facility] [...] + + + | ALT (SGPT) | 80 (H) | <=60 U/L | [facility] | [...] + + + + + | [facility] | [address] | [place] [address] | | | KOLE, INDRA | [address] [...]
--- OUTSIDE RECORDS SUMMARY | ~2019-05-17 | XMS | Encounter Summary ---
Demographics + + + | Address | [address] | | | [place] [address] | + + + | Home Phone [...] Team Providers + +------+ + | Care Mid Level Clinician Name | Role | Phone | + +------+ + | Zayda Hinton | PCP | | + +------+ + Encounter Details +--------+ + + + + | Date | Type | Department | Care Team | Description | +--------+ + + + + | 06/28/ | Pharmacy | Specialty Pharmacy | | | | 2015 | Visit | Services [address] | | | | | | [address] | | | | | | [place], [place] | | | | | | [address] | | | | | | [phone] | | | +--------+ + + + [...] 2019 | Visit | Malignancy | [address] [facility] | | | | | | [address] | | | | | | [place], [place] | | | | | | [address] | | | | | | [phone] | | | | | | | | +--------+---------+ + + + documented as of this encounter Visit Diagnoses Not on filedocumented in this encounter"
--- OUTSIDE RECORDS SUMMARY | ~2019-05-17 | XMS | Encounter Summary ---
Demographics + + + | Address | [address] | | | [place] [address] | + + + | Home Phone [...] Providers + +------+ + | Care Head Up Operator Helper Name | Role | Phone | [...] | | | | | remission | [address] | [facility] | | | | | | Phone: | Pavilion | | | | | Procedures | [phone] | [place], [place] | | | | | Post BMT | Fax: | [address] | | | | | Auth to | [phone] | Phone: | | | | | included | | [phone] | | | | | facility, | | Fax: | | | | | diagnostics, | | [phone] | | | | | office | [...] at | | | | | | [facility] | | | | | | [address] | | | | | | [place] Mailcode: | | | | | | [facility] | | | | | | [place], | | | | | | [place] [address] | | | | | | [phone] | | | +--------+ + + + [...] Rd | | | | | | [place], [place] | | | | | | [address] | | | | | | [phone] | | | | | | | [...] [facility] | [address] | [place], [place] | | | RUTHIE CARTER OF [place] | [address] | [address] | | | TESTS | | | [...] [facility] | [address] | [place], [place] | | | [facility] OF [facility] | [facility] | [address] | | | TESTS | | | [...] + + + + + | [facility] | [address] | [place] [address] | | | KOLE, INDRA | [address] [...]
--- OUTSIDE RECORDS SUMMARY | ~2019-05-17 | XMS | Encounter Summary ---
Demographics + + + | Address | [address] | | | [place] [address] | + + + | Home Phone [...] Providers + +------+ + | Care Fire Extinguisher Sprinkler Inspector Name | Role | Phone | + +------+ + | Pending Pcp Addition | PCP | Unavailable | + +------+ + Reason for Visit + + + | Reason | Comments | + + + | Lab Draw | Trifusion | + + + | Intravenous infusion | Magnesium 4 gram | + + + | Transplant follow-up | JULIANA Jimenez | + + + Office Visit - E/M Services (Routine) +--------+---------+ + + + + | Status | Reason | Specialty | Diagnoses / | Referred By | Referred To | | | | | Procedures | Contact | Contact | +--------+---------+ + + + + | Closed | Other | Hematology | Diagnoses | Cook, | [facility] | | | | Malignancy | 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, | [address] | [address] | | | | | not having | [address] | Mailcode: | | | | | achieved | [place], [place] | [id number] | | | | | remission | [address] | [place] | | | | | | Phone: | Pavilion | | | | | Procedures | [phone] | [place], [place] | | | | | Post BMT | Fax: | [address] | | | | | Auth to | [phone] | Phone: | | | | | included | | [phone] | | | | | facility, | | Fax: | | | | | diagnostics, | | [phone] | | | | | office | | | | | | | visits and | | | | | | | surgery | | | +--------+---------+ + + + + Encounter Details +--------+ + + + + | Date | Type | Department | Care Team | Description | +--------+ + + + + | 09/20/ | Clinical | Center for | | Lab Draw | | 2016 | Support | Hematologic | | (Trifusion); | | | Staff | Malignancies at [facility] | | Intravenous infusion | | | | [address] | | (Magnesium 4 gram | | | | [place] Mailcode: | | ); Transplant | | | | [facility] [place] | | follow-up (Em | | | | [place], | | JULIANA Saunders ) | | | | [place] [address] | | | | | | [phone] | | | +--------+ + + + [...] documented as of this encounter Progress Notes Rochelle Ozuna - 09/21/2015 11:33 AM PDTFormatting of this note might be different from jaycee farrell. INFUSION/TRANSFUSION NURSING NOTE Name: Khurram Navaleland Date: 09/21/2015 Hematologic Malignancy: Primary refractory AML Conditioning regimen: tBuCy Date of transplant: 08/27/2015 (two day 0s) Donor: MM URD (DPB1 permissive antigen mismatch, male, [id number]) Subjective: Khurram arrives in clinic with his for labs, possible supportive measures and office visit with JULIANA Jimenez. VSS. Patient reports one episode of emesis this mor jayna after taking his morning medications with " a lot" of water. Patient denies any pills i n his emesis or nausea at this time. Patient denies fever, chills, dyspnea, dizziness, const ipation, diarrhea, rash, neuropathy, urinary issues, mucositis. Patient is eating and drinki ng 2 L per day without difficulty. Past illnesses: Khurram has a past medical [...] ified, or At risk for colon cancer. Labs: CBC with diff last 72 hours (or 3 results) Recent Labs 09/21/15 1104 WBC 9.9 HB 10.7* HCT 30.9* PLT 245 MONOPERC 19.9* BASOPERC 0.6 EOSPERC 1.0 Chemistries: Last 72 Hours (or 3 results): Recent Labs 09/21/15 1005 09/21/15 1100 NA 137 -- K 4.0 -- CL 94* -- BICARB 28 -- BUN 19 -- CR 0.9 -- GLU 108* -- CA 9.5 -- MG 1.6* -- PO4 -- 3.7 Pre-Infusion Pain Score: Patient reports a pain level of 0 today. For Treatment Done in Clinic Today refer to SEP Narrative: Patient confirms he is taking Tacrolimus 1.5 mg PO in the AM and 1 mg PO in the PM. Patient has not taken AM dose prior to lab draw. Trifusion accessed per protocol. Good b lood return noted. Appropriate waste discarded. Labs drawn and sent from red lumen. Trifusio n pulse flushed with 20 mL NS. Per infusion plan, no transfusions needed. Magnesium Sulfate 4 gm in 100 mL NS infused over 2 hours per infusion plan orders for a magnesium level of 1.6 . For infusion details, see SEP. Assessment: Tolerated procedure. Trifusion lumens pulse flushed and Heparin locked per prot ocol. All questions and concerns addressed. Patient scheduled to RTC 09/24/2015 or sooner if needed. Rochelle Ozuna RN documented in this encoun [...] Rd | | | | | | [place], [place] | | | | | | [address] | | | | | | [phone] | | | | | | | | +--------+---------+ + + + documented as of this encounter Procedures + +--------+ + + + | Procedure Name | Priori | Date/Time | Associated Diagnosis | Comments | | | ty | | | | + +--------+ + + + | TREATMENT PARAMETERS | Routin | 09/21/2015 | Acute myeloid | | | #2 - BEACON | e | 2:13 PM | leukemia (AML), 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 | | | | | | induction failure | | + +--------+ + + + | TREATMENT PARAMETERS | Routin | 09/21/2015 | Acute myeloid | | | #2 - BEACON | e | 2:13 PM | leukemia (AML), 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 | | | | | | induction failure | | + +--------+ + + + | TREATMENT PARAMETERS | Routin | 09/21/2015 | Acute myeloid | | | #2 - BEACON | e | 2:13 PM | leukemia (AML), M4 | | | | | PDT | ([facility])- primary | | | | | | induction failure | | + +--------+ + + + | TREATMENT PARAMETERS | Routin | 09/21/2015 | Acute myeloid | | | #2 - BEACON | e | 2:13 PM | leukemia (AML), 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 | | | | | | induction failure | | + +--------+ + + + | TREATMENT PARAMETERS | Routin | 09/21/2015 | Acute myeloid | | | #2 - BEACON | e | 2:13 PM | leukemia (AML), M4 | | | | | PDT | ([facility])- primary | | | | | | induction failure | | + +--------+ + + + | NURSING | Routin | 09/21/2015 | Acute myeloid | | | COMMUNICATION #3 - | e | 2:13 PM | leukemia (AML), M4 | | | [facility] | | PDT | ([facility])- primary | | | | | | induction failure | | + +--------+ + + + | NURSING | Routin | 09/21/2015 | Acute myeloid | | | COMMUNICATION #2 - | e | 2:13 PM | leukemia (AML), M4 | | | [facility] | | PDT | ([facility])- primary | | | | | | induction failure | | + +--------+ + + + | NURSING | Routin | 09/21/2015 | Acute myeloid | | | COMMUNICATION #1 - | e | 2:13 PM | leukemia (AML), M4 | | | [facility]ON | | PDT | ([facility])- primary | | | | | | induction failure | | + +--------+ + + + | TREATMENT PARAMETERS | Routin | 09/21/2015 | Acute myeloid | | | #1 - BEACON | e | 2:13 PM | leukemia (AML), M4 | | | | | PDT | ([facility])- primary | | | | | | induction failure | | + +--------+ + + + | TREATMENT PARAMETERS | Routin | 09/21/2015 | Acute myeloid | | | #1 - BEACON | e | 2:13 PM | leukemia (AML), M4 | | | | | PDT | ([facility])- primary | | | | | | induction failure | | + +--------+ + + + | CBC+DIFF,POC | Urgent | 09/21/2015 | Acute myeloid | Results for this | | | | 11:04 AM | leukemia (AML), M4 | procedure are in the | | | | PDT | ([facility])- primary | results section. 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 | | | | | | (HCC) | | + +--------+ + + + | CMV PCR | Urgent | 09/21/2015 | Acute myeloid | Results for this | | QUANTITATION, PLASMA | | 11:00 AM | leukemia (AML), M4 | procedure are in the | | | | PDT | ([facility])- primary | results section. 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 | | | | | | (HCC) | | + +--------+ + + + | LIVER SET | Urgent | 09/21/2015 | Acute myeloid | Results for this | | (AST,ALT,BILI | | 11:00 AM | leukemia (AML), M4 | procedure are in the | | TOTAL,BILI | | PDT | ([facility])- primary | results section. | | DIRECT,ALK | | | induction failure | | | PHOS,ALB,PROT TOTAL) | | | S/P allogeneic bone | | | | | | marrow transplant | | | | | | (HCC) | | + +--------+ + + + | TACROLIMUS, WHOLE | Urgent | 09/21/2015 | Acute myeloid | Results for this | | BLOOD | | 11:00 AM | leukemia (AML), M4 | procedure are in the | | | | PDT | ([facility])- primary | results section. 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 | | | | | | (HCC) | | + +--------+ + + + | IGG, SERUM | Urgent | 09/21/2015 | Acute myeloid | Results for this | | | | 11:00 AM | leukemia (AML), M4 | procedure are in the | | | | PDT | ([facility])- primary | results section. 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 | | | | | | (HCC) | | + +--------+ + + + | PHOSPHORUS, PLASMA | Urgent | 09/21/2015 | Acute myeloid | Results for this | | | | 11:00 AM | leukemia (AML), M4 | procedure are in the | | | | PDT | ([facility])- primary | results section. 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 | | | | | | (HCC) | | + +--------+ + + + | ASPERGILLUS | Urgent | 09/21/2015 | Acute myeloid | Results for this | | GALACTOMANNAN | | 11:00 AM | leukemia (AML), M4 | procedure are in the | | ANTIGEN, SERUM | | PDT | ([facility])- primary | results section. 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 | | | | | | (HCC) | | + +--------+ + + + | BMP + MAG, POC CHM | Urgent | 09/21/2015 | Acute myeloid | Results for this | | | | 10:05 AM | leukemia (AML), M4 | procedure are in the | | | | PDT | ([facility])- primary | results section. 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 | | | | | | (HCC) | | + +--------+ + + + documented in this encounter Results CBC+DIFF,POC (09/21/2015 11:04 AM [...] | [address] | [place], [place] | | | [facility]INT OF CARE | [address] | [address] | | | TESTS | | | [...] + | [facility] - | [address] | [place] [address] | | | [place] | | | [...] + +---------+ + + + | REI D CMNT | No Hemo | | [...] | + + + + + | [facility] | [address] | [place] [address] | | | SERVICES, CORE | WALLY [...] [facility] | [address] | [place] [address] | | | SERVICES, CORE | [address]ARK [...] | + + + + + | [facility] | [address] | [place] [id number] | | | SERVICES, SPECIAL | WALLY [...] 2 fold may not reflect true | [facility] | | biological changes and must [...] | | | characteristics determined by the [facility] | | | Molecular Diagnostic [facility]. It has not been cleared or approved by | | | the Food and Drug Administration. FDA approval is not required for | | | clinical use of this test, and therefore validation was done as | | | required under the requirements of the Clinical Laboratory Improvement | | | Act of 1988. The [facility] | | | Diagnostic Center is a fully licensed and/or accredited clinical | | | laboratory under CLIA, CAP, and the [facility]. | | + + + + + + + + | Performing | Address | City/State/Zipcode | Phone Number | | Organization | | | | + + + + + | [facility] | [address] | [place] [address] | | | DIAGNOSTIC | [address] [...] + + | Performing | Address | City/State/[facility] | Phone Number | | Organization | | | | + + + + + | [facility] | [address] | [place] [address] | | | SPECIAL KOLE | [address] [...] [facility] | [address] | [place], [place] | | | RUTHIE CARTER OF [facility] | [facility] | [address] | | | TESTS | | | [...] 10 unit/mL IV flush | Given | 09/21/19 | 50 Units | | | | syringe 50 Units 50 Units, | | 16 1:22 | | | | | Intracatheter, NEEDED, | | PM PDT | | | | | Starting 09/21/15 at 1309, | | | | | | | Until 09/21/15 at 2013, line | | | | | | | patency | | | | | | + +--------+ + +------+------+ +-------+ + +---+---+ | Given | 09/21/19 | 50 Units | | | | | 16 1:21 | | | | | | PM PDT | | | | +-------+ + +---+---+ | Given | 09/21/19 | 50 Units | | | | | 16 1:20 | | | | | | PM PDT | | | | +-------+ + +---+---+ +---+---+ | | | +---+---+ + +---------+ +-----+---+---+ | magnesium sulfate in water IV | New Bag | 09/21/19 | 4 g | | | | (RTU) 4 g 4 g, intravenous, | | 16 11:25 | | | | | ONCE, 1 dose, 09/21/15 at 1130 | | AM PDT | | | | + +---------+ +-----+---+---+ +---+---+ | | | +---+---+ documented in this encounter
--- OUTSIDE RECORDS SUMMARY | ~2019-05-17 | XMS | Encounter Summary ---
Demographics + + + | Address | [address] | | | [place] [address] | + + + | Home Phone [...] Team Providers + +------+ + | Care Discharge Door Operator Name | Role | Phone | + +------+ + | Zayda Hinton | PCP | | + +------+ + Encounter Details +--------+ + + + + | Date | Type | Department | Care Team | Description | +--------+ + + + + | 08/16/ | Pharmacy | Specialty Pharmacy | | | | 2015 | Visit | Services [address] | | | | | | [address] | | | | | | [place], [place] | | | | | | [address] | | | | | | [phone] | | | +--------+ + + + [...] [place] | | | | | | [address] | | | | | | [phone] | | | | | | | | +--------+---------+ + + + documented as of this encounter Visit Diagnoses Not on filedocumented in this encounter"
--- OUTSIDE RECORDS SUMMARY | ~2019-05-17 | XMS | Encounter Summary ---
Demographics + + + | Address | [address] | | | [place] [address] | + + + | Home Phone [...] Team Providers + +------+ + | Care Industrial Relations Commissioner Name | Role | Phone | + +------+ + | Zayda Hinton | PCP | | + +------+ + Encounter Details +--------+ + + + + | Date | Type | Department | Care Team | Description | +--------+ + + + + | 08/25/ | Pharmacy | Specialty Pharmacy | | | | 2016 | Visit | Services [address] | | | | | | [address] | | | | | | [place], [place] | | | | | | [address] | | | | | | [phone] | | | +--------+ + + + [...] Rd | | | | | | [place], [place] | | | | | | [address] | | | | | | [phone] | | | | | | | | +--------+---------+ + + + documented as of this encounter Visit Diagnoses Not on filedocumented in this encounter"
--- OUTSIDE RECORDS SUMMARY | ~2019-05-17 | XMS | Encounter Summary ---
Demographics + + + | Address | [address] | | | [place] [address] | + + + | Home Phone [...] Team Providers + +------+ + | Care Court Clerk Name | Role | Phone [...] | 2017 | | Hematologic | [address] [facility] | | | | | Malignancies at | [facility] | | | | | [address] | [place], [place] | | | | | [address] [facility] | [address] | | | | | [facility] Mailcode: | [phone] | | | | | [id number] | | | | | | [place], | | | | | | [place] [address] | | | | | | [phone] | | | +--------+--------+ + + + [...] 2019 | Visit | Malignancy | [address] [facility] | | | | | | [address] | | | | | | [place] | | | | | | [address] | | | | | | [phone] | | | | | | | | +--------+---------+ + + + documented as of this encounter Visit Diagnoses Not on filedocumented in this encounter"
--- OUTSIDE RECORDS SUMMARY | ~2019-05-17 | XMS | Encounter Summary ---
Demographics + + + | Address | [address] | | | [place] [address] | + + + | Home Phone [...] Providers + +------+ + | Care Technical Marketing Consultant Name | Role | Phone | [...] + + + + | 12/19/ | Anesthesia | 6A Intra [facility] | Nato Vaz MD | | | 2019 | Event | [facility] | [address] | | | | | Admitting Desk | Debi [place], | | | | | Located on the 9 | [place] [address] | | | | | floor [address] [place] [address] | [phone] | | | | | [address] | | | | | | [place], [place] | | | | | | [address] | | | +--------+ + + + + Anesthesia Record + + + + + | Procedure Name | Responsible | Anesthesia Start | Anesthesia Stop Time | | | Anesthesiologist | Time | | + + + + + | RIGHT TOTAL HIP | Nato Vaz MD | 12/19/18 0912 | 12/19/18 1115 | | ARTHROPLASTY (Right | | | | | Hip) | | | | + + + + + +----+---+ + + | Da | T | Event | Comment | | te | i | | | | | m | | | | | e | | | +----+---+ + + | 06 | 0 | Pt. Check | Prior to anesthesia start, pt. Identified, examined, chart | | /1 | 8 | | reviewed, PARQ held, anesthetic plan made or approved by | | 3/ | 5 | | attending anesthesiologist. NPO status confirmed as appropriate | | 20 | 4 | | for procedure Preoperative evaluation: unchanged | | 19 | | | | +----+---+ + + | | 0 | Eq Check | Anesthesia machine checked Equipment verified | | | 8 | | | | | 5 | | | | | 6 | | | +----+---+ + + | | 0 | An Start | | | | 9 | | | | | 1 | | | | | 2 | | | +----+---+ + + | | 0 | An Start | | | | 9 | Data | | | | 1 | | | | | 6 | | | +----+---+ + + | | 0 | Vitals | Monitors applied Vital signs checked Patient ready for anesthesia | | | 9 | Checked | | | | 1 | | | | | 9 | | | +----+---+ + + | | 0 | Block Pause | | | | 9 | | | | | 2 | | | | | 1 | | | +----+---+ + + | | 0 | O2 by NC | | | | 9 | | | | | 2 | | | | | 2 | | | +----+---+ + + | | 0 | Start | | | | 9 | Spinal | | | | 2 | | | | | 8 | | | +----+---+ + + | | 0 | Stop Spinal | | | | 9 | | | | | 3 | | | | | 2 | | | +----+---+ + + | | 0 | Ready | | | | 9 | | | | | 3 | | | | | 5 | | | +----+---+ + + | | 0 | Abx | | | | 9 | Administere | | | | 3 | d | | | | 8 | | | +----+---+ + + | | 0 | Timeout | | | | 9 | | | | | 5 | | | | | 9 | | | +----+---+ + + | | 0 | Incision | | | | 9 | | | | | 5 | | | | | 9 | | | +----+---+ + + | | 1 | SGA | | | | 0 | | | | | 0 | | | | | 6 | | | +----+---+ + + | | 1 | Surgery end | | | | 1 | | | | | 0 | | | | | 0 | | | +----+---+ + + | | 1 | SGA Removed | | | | 1 | | | | | 0 | | | | | 3 | | | +----+---+ + + | | 1 | O2 by FM | | | | 1 | | | | | 0 | | | | | 4 | | | +----+---+ + + | | 1 | an stop | | | | 1 | data | | | | 0 | | | | | 5 | | | +----+---+ + + | | 1 | PACU Rpt | | | | 1 | Given | | | | 1 | | | | | 4 | | | +----+---+ + + | | 1 | Anesthesia | | | | 1 | End | | | | 1 | | | | | 5 | | | +----+---+ + + | | 1 | Post-Op | | | | 1 | Page | | | | 3 | | | | | 0 | | | +----+---+ + + +------+ | Meds | +------+ + + + | Name | Total | + + + | midazolam | 2 mg | + + + | fentaNYL | 100 mcg | + + + | bupivacaine 0.5% | 3 mL | + + + | propofol INF | 173,250 mcg | + + + | propofol (DIPRIVAN) 200 mg | 320 mg | + + + | tranexamic acid | 2,000 mg | + + + | ceFAZolin | 2,000 mg | + + + | PHENYLEPHrine | 300 mcg | + + + | ePHEDrine | 25 mg | + + + | ondansetron | 4 mg | + + + | PHENYLEPHrine INF (25mg/250mL) | 1,016.4 mcg | + + + | lactated ringers IV | 0 mL | + + + + + | Name | + + | O2 FR Avance (Total Liters) | + + | Air FR Avance (l/min) | + + | Insp Sevo | + + | Et Sevo | + + | Insp N2O % | + + + + | No blood administrations on file. | + + +--------+ + + + | Type | Details | Placement | Removal | +--------+ + + + | Incisi | 09/07/16; 14; Left; Lateral; | 09/07/16 0814 by | | | on | hip | Nicole Pratt RN | | +--------+ + + + | Incisi | 12/19/18; 1019; MD Zeyad ; | 12/19/18 1019 by | | | on | Right; Lateral; hip | Liya Bobby RN | | +--------+ + + + | Periph | 12/19/18; 0830; Left; Dorsal; | 12/19/18 0830 by | 12/20/18 1330 by | | eral | Hand; 20 g; Positive; 12/20/18; | Whit South RN | Shravan La RN | | IV | 1330; Discharge | | | +--------+ + + + [...] Rd | | | | | | [place], [place] | | | | | | [address] | | | | | | [phone] | | | | | | | | +--------+---------+ + + + documented as of this encounter Procedures + +--------+ + + + | Procedure Name | Priori | Date/Time | Associated Diagnosis | Comments | | | ty | | | | + +--------+ + + + | ANE LMA | Routin | 12/19/2018 | | Results for this | | | e | 10:27 AM | | procedure are in the | | | | PDT | | results section. | + +--------+ + + + | ANE SPINAL | Routin | 12/19/2018 | | Results for this | | | e | 9:53 AM | | procedure are in the | | | | PDT | | results section. | + +--------+ + + + documented in this encounter Results SGA (12/19/2018 10:27 AM PDT) + + + | Narrative | Performed At | + + + | Adarsh Barbosa MD 12/19/2018 10:28 AM AIRWAY MANAGEMENT - SGA | | | Time of Placement: 12/19/2018 10:06 AM Location Performed:[place] | | | OXYGENATION Patient was preoxygenated Grade: Grade 0 - Ventilation | | | by mask not attempted LMA DETAILS LMA Type: Air-Q LMA Size: 4.5 | | | - 4.5 CONFIRMATION Number of Attempts: 1 Atraumatic placement | | | Positive for EtCO2:Waveform capnography NARRATIVE Attending was | | | physically present for the critical portions of the procedure as | | | described in the procedure note Attending/Authorizing Provider: Nato | | | Sheryl Vaz MD Performing Provider: Adarsh Barbosa MD Procedure | | | Comments: Placed in lateral position. Significant leak improved with | | | air in cuff. | | + + + Spinal (12/19/2018 9:53 AM PDT) + + + | Narrative | Performed At | + + + | Adarsh Barbosa MD 12/19/2018 9:56 AM Spinal Placement Start | | | Time: 12/19/2018 9:28 AM Placement End Time: 12/19/2018 9:33 AM Block | | | Method: Single-Shot Block Reason: primary anesthetic Location | | | Performed: [place] The patient was identified, site verified and marked, | | | full PARQ done PROCEDURE Number of Attempts: 1 Patient | | | Position: Sitting Monitors: EKG, NIBP and SpO2 Skin Prep: Chloraprep | | | Team Pause: Performed per policy Protective Barrier: Cap, Mask, | | | Hand scrub, Sterile Gloves and Partially Draped Patient Status: | | | Sedated but participating Supplemental O2 given TECHNOLOGY | | | USED Technology used: [place] technique PLACEMENT Needle | | | Type: Dane Needle Size: 25 G Needle Length (inches): 3.5 | | | Vertebral Interspace: L3-4 Paresthesia: No ASSESSMENT Sensory | | | band tested by: Exam deferred Complications: No apparent | | | complications Technical Difficulty: Easy Procedure Abandoned?: | | | No NARRATIVE Attending was physically present for the | | | critical portions of the procedure as described in the procedure | | | note Attending/Authorizing Provider: Nato Vaz MD Performing | | | Provider: Vickey Alejandra MD | | + + + documented in this encounter Visit Diagnoses Not on filedocumented in this encounter Administered Medications + +--------+ +------+------+------+ | Medication Order | MAR | Action | Dose | Rate | Site | | | Action | Date | | | | + +--------+ +------+------+------+ | bupivacaine (PF) | Given | 12/20/19 | 3 mL | | | | (MARCAINE,SENSORCAINE-MPF) 0.5 % | | 19 9:31 | | | | | (5 mg/mL) injection | | AM PDT | | | | | INTRAPROCEDURE PRN, Starting Lupe | | | | | | | 12/19/18 at 0931, Until Lupe | | | | | | | 12/19/18 at 1105 | | | | | | + +--------+ +------+------+------+ +---+---+ | | | +---+---+ + +-------+ + +---+---+ | ceFAZolin (ANCEF) injection | Given | 12/20/19 | 2,000 mg | | | | intravenous, INTRAPROCEDURE PRN, | | 19 9:38 | | | | | Starting Lupe 12/19/18 at 0938, | | AM PDT | | | | | Until Lupe 12/19/18 at 1105 | | | | | | + +-------+ + +---+---+ +---+---+ | | | +---+---+ + +-------+ +------+---+---+ | ePHEDrine injection | Given | 12/20/19 | 5 mg | | | | intravenous, INTRAPROCEDURE PRN, | | 19 10:17 | | | | | Starting Lupe 12/19/18 at 0943, | | AM PDT | | | | | Until Lupe 12/19/18 at 1105 | | | | | | + +-------+ +------+---+---+ +-------+ +------+---+---+ | Given | 12/20/19 | 5 mg | | | | | 19 10:14 | | | | | | AM PDT | | | | +-------+ +------+---+---+ | Given | 12/20/19 | 5 mg | | | | | 19 9:46 | | | | | | AM PDT | | | | +-------+ +------+---+---+ +---+---+ | | | +---+---+ + +-------+ +--------+---+---+ | fentaNYL (SUBLIMAZE) injection | Given | 12/20/19 | 25 mcg | | | | intravenous, INTRAPROCEDURE PRN, | | 19 10:57 | | | | | Starting Lupe 12/19/18 at 0922, | | AM PDT | | | | | Until [facility] 12/19/18 at 1105 | | | | | | + +-------+ +--------+---+---+ +-------+ +--------+---+---+ | Given | 12/20/19 | 25 mcg | | | | | 19 10:55 | | | | | | AM PDT | | | | +-------+ +--------+---+---+ | Given | 12/20/19 | 50 mcg | | | | | 19 9:22 | | | | | | AM PDT | | | | +-------+ +--------+---+---+ +---+---+ | | | +---+---+ + +---------+ +---+---+---+ | lactated ringers IV 10 mL/hr, | New Bag | 12/20/19 | | | | | intravenous, PROCEDURE | | 19 9:12 | | | | | CONTINUOUS, Starting Lupe 12/19/18 | | AM PDT | | | | | at 0915, Until Lupe 12/19/18 at | | | | | | | 1444 | | | | | | + +---------+ +---+---+---+ +---+---+ | | | +---+---+ + +-------+ +------+---+---+ | midazolam (PF) (VERSED) | Given | 12/20/19 | 2 mg | | | | injection intravenous, | | 19 9:22 | | | | | INTRAPROCEDURE PRN, Starting Lupe | | AM PDT | | | | | 12/19/18 at 0922, Until Lupe | | | | | | | 12/19/18 at 1105 | | | | | | + +-------+ +------+---+---+ +---+---+ | | | +---+---+ + +-------+ +------+---+---+ | ondansetron (ZOFRAN) injection | Given | 12/20/19 | 4 mg | | | | intravenous, INTRAPROCEDURE PRN, | | 19 10:47 | | | | | Starting Lupe 12/19/18 at 1047, | | AM PDT | | | | | Until Lupe 12/19/18 at 1105 | | | | | | + +-------+ +------+---+---+ +---+---+ | | | +---+---+ + +-------+ +---------+---+---+ | PHENYLEPHrine 100 mcg/mL IV | Given | 12/20/19 | 100 mcg | | | | syringe intravenous, | | 19 10:17 | | | | | INTRAPROCEDURE PRN, Starting Lupe | | AM PDT | | | | | 12/19/18 at 1007, Until Lupe | | | | | | | 12/19/18 at 1105 | | | | | | + +-------+ +---------+---+---+ +-------+ +---------+---+---+ | Given | 12/20/19 | 100 mcg | | | | | 19 10:14 | | | | | | AM PDT | | | | +-------+ +---------+---+---+ | Given | 12/20/19 | 100 mcg | | | | | 19 10:07 | | | | | | AM PDT | | | | +-------+ +---------+---+---+ +---+---+ | | | +---+---+ + +---------+ + +--------+---+ | PHENYLEPHrine 25 mg/250 mL (0.1 | New Bag | 12/20/19 | 0.4 | 18.48 | | | mg/mL) IV infusion (ADC) | | 19 10:27 | mcg/kg/m | mL/hr | | | intravenous, INTRAPROCEDURE | | AM PDT | in | | | | CONTINUOUS PRN, Starting Lupe | | | | | | | 12/19/18 at 1027, Until Lupe | | | | | | | 12/19/18 at 1105 | | | | | | + +---------+ + +--------+---+ +---+---+ | | | +---+---+ + +-------+ +-------+---+---+ | propofol (DIPRIVAN) 200 mg | Bolus | 12/20/19 | 50 mg | | | | intravenous, INTRAPROCEDURE | | 19 10:07 | | | | | CONTINUOUS PRN, Starting Lupe | | AM PDT | | | | | 12/19/18 at 0937, Until Lupe | | | | | | | 12/19/18 at 1105 | | | | | | + +-------+ +-------+---+---+ +-------+ +--------+---+---+ | Bolus | 12/20/19 | 200 mg | | | | | 19 10:06 | | | | | | AM PDT | | | | +-------+ +--------+---+---+ | Bolus | 12/20/19 | 30 mg | | | | | 19 9:39 | | | | | | AM PDT | | | | +-------+ +--------+---+---+ +---+---+ | | | +---+---+ + + + + +--------+---+ | propofol (DIPRIVAN) injection | Rate/Dos | 12/20/19 | 75 | 34.65 | | | intravenous, INTRAPROCEDURE | e Change | 19 9:48 | mcg/kg/m | mL/hr | | | CONTINUOUS PRN, Starting Lupe | | AM PDT | in | | | | 12/19/18 at 0936, Until Lupe | | | | | | | 12/19/18 at 1105 | | | | | | + + + + +--------+---+ +---------+ + +-------+---+ | New Bag | 12/20/19 | 100 | 46.2 | | | | 19 9:36 | mcg/kg/m | mL/hr | | | | AM PDT | in | | | +---------+ + +-------+---+ +---+---+ | | | +---+---+ + +-------+ + +---+---+ | tranexamic acid (CYCLOKAPRON) | Given | 12/20/19 | 1,000 mg | | | | injection intravenous, | | 19 10:56 | | | | | INTRAPROCEDURE PRN, Starting Lupe | | AM PDT | | | | | 12/19/18 at 0948, Until Lupe | | | | | | | 12/19/18 at 1105 | | | | | | + +-------+ + +---+---+ +-------+ + +---+---+ | Given | 12/20/19 | 1,000 mg | | | | | 19 9:48 | | | | | | AM PDT | | | | +-------+ + +---+---+ +---+---+ | | | +---+---+ documented in this encounter"
--- OUTSIDE RECORDS SUMMARY | ~2019-05-17 | XMS | Encounter Summary ---
Demographics + + + | Address | [address] | | | [place] [address] | + + + | Home Phone [...] | | 2015 | Visit | Services [address] | | | | | | [address] | | | | | | [place], [place] | | | | | | [address] | | | | | | [phone] | | | +--------+ + + + [...] 2019 | Visit | Malignancy | [address] [facility] | | | | | | [address] | | | | | | [place], [place] | | | | | | [address] | | | | | | [phone] | | | | | | | | +--------+---------+ + + + documented as of this encounter Visit Diagnoses Not on filedocumented in this encounter"
--- OUTSIDE RECORDS SUMMARY | ~2019-05-17 | XMS | Encounter Summary ---
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 He was evaluated at [facility] ED on 06/[address] [...] myelomonocytic leukemia. He was referred to [facility] for further evaluation and man agement of his newly dx'd AML. Pt was admitted to [facility] on 05/26/15. Peripheral blood was sent [...] CD34, variable CD56, variable CD117, and dim UG783-eokjn mickey; promonocyte immunophenotype (70% by flow): CD11b, [...] on 01/13/16. He and his were in [place] this weekend visiting [facility] and family. He golfed 18 holes, [...] marrow studies after c6 of azacitidine 2. Qwcjr-ut-Pnpw Disease: Skin bx due to mild rash [...] prORLY [facility] AT [address] Mailcode: [id number] [place] [address] documented in this enc ounter [...] Rd | | | | | | [place], [place] | | | | | | [address] | | | | | | [phone] | | | | | | | [...]
--- OUTSIDE RECORDS SUMMARY | ~2019-05-17 | XMS | Encounter Summary ---
Demographics + + + | Address | [address] | | | [place] [address] | + + + | Home Phone [...] Team Providers + +------+ + | Care Preparer Samples And Repairs Name | Role | Phone | + [...] | | | | | ([facility]) | [place], [place] | [address] | | | | | Procedures | [address] | for Health | | | | | CONSULT TO | Phone: | and Healing, | | | | | OPHTHALMOLOG | [phone] | [address], | | | | | Y | Fax: | [address]th Floor | | | | | | [phone] | [place], [place] | | | | | | | [address] | | | | | | | Phone: | | | | | | | [phone] | | | | | | | Fax: | | | | | | | [phone] | +--------+--------+ + + + + Encounter Details +--------+---------+ + + + | Date | Type | Department | Care Team | Description | +--------+---------+ + + + | 10/20/ | Office | [facility] | Jenna Omer MD | [facility] | | 2017 | Visit | [facility] | [address] | (keratoconjunctiviti | | | | ogy at [facility] [address] | [place], [place] | s sicca) ([facility]) | | | | [address] Mailcode: | [address] | (Primary Dx); | | | | [address] for | [phone] | Bilateral dry eyes; | | | | Health and Healing, | | 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 year old male from [place] : Patient p resents with: Medical Eye [...] scanned intake form or preadmission data in [facility] for full Family ocular and medical his [...] leukemia (AML), M4 (HCC)- primary induction failure [facility] RESEARCH PROTOCOL PATIENT (RESPRO) Electrolyte abnormality ADHD [...] I have reviewed and edited history and remanufacturing technician documentation, and performed all other el ements to above examination documentation. I have reviewed and verified the above scribed note of my visit with this patient as record ed by the scribe indicated in the tech attestation above. Jenna Omer MD Software Developer Intern [facility] Physician: Jenna Omer MD documented in this [...] 2019 | Visit | Malignancy | [address] [facility] | | | | | | [address] | | | | | | [place], [place] | | | | | | [address] | | | | | | [phone] | | | | | | | [...]
--- OUTSIDE RECORDS SUMMARY | ~2019-05-17 | XMS | Encounter Summary ---
Demographics + + + | Address | [address] | | | [place] [address] | + + + | Home Phone [...] Team Providers + +------+ + | Care In Mold Coater Name | Role | Phone | + +------+ + | Pending Pcp Addition | PCP | Unavailable | + +------+ + Reason for Visit + + + | Reason | Comments | + + + | Schedule labs | Trifusion | + + + | Follow-up visit | [place] | + + + | Dressing change | Trifusion | + + + | Intravenous infusion | magnesium | + + + Benefits Check (Routine) [...] | | | | | | | [address] | | | | | | | [address] | | | | | | | [place], | | | | | | | [place] | | | | | | | [address] | | | | | | | Phone: | | | | | | | [phone] | | | | | | | Fax: | | | | | | | [phone] | +--------+--------+ + + + + Encounter Details +--------+ + + + + | Date | Type | Department | Care Team | Description | +--------+ + + + + | 02/15/ | Clinical | [facility] | | Schedule labs | | 2016 | Support | Hematologic | | (Trifusion); | | | Staff | [facility] at [facility] | | Follow-up visit | | | | [address] | | ([place]); | | | | [place] Mailcode: | | Dressing change | | | | [id number] | | (Trifusion); | | | | [place], | | Intravenous infusion | | | | [place] [address] | | (magnesium) | | | | [phone] | | | +--------+ + + + [...] as of this encounter Progress Notes Pricilla Guy, ZAFAR - 02/16/2016 1:56 PM PDTFormatting of this note might be different f rom the original. INFUSION/TRANSFUSION NURSING NOTE Name: Khurram Kelly Date: 02/16/2016 Provider: Yari Garcia MD/ ORLY Yanes Subjective: Patient arrived to clinic ambulatory. Patient states he is feeling well today. States his energy is good and that he is eating and drinking very well. Patient states the r gerry he has is much improved but still has faint rash to his abdomen and chest. States it was very red and did cause him discomfort and he barely notices it now. He is still using TAC c ream as prescribed. Patient denies any fevers, chills, cough/sob, dizziness, edema, s/s of b leeding, urinary issues, n/v/d/c, or neuropathy. Past illnesses: Khurram has a past medical [...] ified, or At risk for colon cancer. Lab Draw: Trifusion accessed per protocol. Good blood return noted. Appropriate waste discarded. L abs drawn and sent. Trifusion pulse flushed with 20 mL NS. Patient scheduled for provider visit today with ORLY Yanes. CBC with diff last 72 hours (or 3 results) Recent Labs 02/16/16 1324 WBC 10.0 HB 11.0* HCT 33.2* PLT 134* MONOPERC 7.2 BASOPERC 0.6 EOSPERC 1.6 Narrative: Lab results reviewed. Magnesium Sulfate 2 gm in 50 mL NS infused over 1 hours per supportiv e care orders for a magnesium level of 1.4. For infusion details, see MAR. Patient requires no other supportive measures today. Patient is going to continue with pred nisone 20 mg daily and with TAC cream for rash. Trifusion intact to left anterior chest wall [...] of 10 units/mL Heparin. Patient tolerated procedure with out difficulty. Reminded patient to call if experiencing temp > 100.4, uncontrolled n/v/d/c, s/s of bleedin g or infection or any other concerns. Patient discharged home ambulatory and is to RTC on or sooner if needed. Pricilla Guy RN documented in this encounter Plan of [...] | | | | | | [place], [place] | | | | | | [address] | | | | | | [phone] | | | | | | | | +--------+---------+ + + + documented as of this encounter Procedures + +--------+ + + + | Procedure Name | Priori | Date/Time | Associated Diagnosis | Comments | | | ty | | | | + +--------+ + + + | BMP + MAG, POC CHM | Routin | 02/16/2016 | S/P allogeneic | Results for this | | | e | 1:28 PM | bone marrow | procedure are in the | | | | PDT | transplant ([facility]) | results section. 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[facility])- primary | | | | | | induction failure | | + +--------+ + + + | CBC+DIFF,POC | Routin | 02/16/2016 | S/P allogeneic | Results for this | | | e | 1:24 PM | bone marrow | procedure are [...] + | CMV PCR | Routin | 02/16/2016 | S/P allogeneic | Results for this | | QUANTITATION, PLASMA | e | 1:09 PM | bone marrow | procedure are [...] + | LIVER SET | Urgent | 02/16/2016 | S/P allogeneic | Results for this | | (AST,ALT,BILI | | 1:09 PM | bone marrow | procedure are [...] + + | NURSING | Routin | 02/16/2016 | Acute myeloid | | | COMMUNICATION #3 - | e | 1:05 PM | leukemia (AML), M4 | | | [facility] | | PDT | (HCC)- primary | | | | | | induction failure | | + +--------+ + + + | GUIDELINES FOR | Routin | 02/16/2016 | S/P allogeneic | | | ORDERING #1 - [facility] | e | 1:05 PM | bone marrow | | | | | PDT | transplant (HCC) | 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 | | + +--------+ + + + | TREATMENT PARAMETERS | Routin | 02/16/2016 | Acute myeloid | | | #2 - [facility] | e | 1:05 PM | leukemia (AML), 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 | | | | | | induction failure | | + +--------+ + + + | TREATMENT PARAMETERS | Routin | 02/16/2016 | Acute myeloid | | | #2 - [facility] | e | 1:05 PM | leukemia (AML), 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 | | | | | | induction failure | | + +--------+ + + + | TREATMENT PARAMETERS | Routin | 02/16/2016 | Acute myeloid | | | #2 - [facility] | e | 1:05 PM | leukemia (AML), M4 | | | | | PDT | ([facility])- primary | | | | | | induction failure | | + +--------+ + + + | TREATMENT PARAMETERS | Routin | 02/16/2016 | Acute myeloid | | | #2 - [facility] | e | 1:05 PM | leukemia (AML), 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 | | | | | | induction failure | | + +--------+ + + + | TREATMENT PARAMETERS | Routin | 02/16/2016 | Acute myeloid | | | #2 - [facility] | e | 1:05 PM | leukemia (AML), M4 | | | | | PDT | ([facility])- primary | | | | | | induction failure | | + +--------+ + + + | NURSING | Routin | 02/16/2016 | Acute myeloid | | | COMMUNICATION #2 - | e | 1:05 PM | leukemia (AML), M4 | | | [facility] | | PDT | ([facility])- primary | | | | | | induction failure | | + +--------+ + + + | NURSING | Routin | 02/16/2016 | Acute myeloid | | | COMMUNICATION #1 - | e | 1:05 PM | leukemia (AML), M4 | | | [facility] | | PDT | ([facility])- primary | | | | | | induction failure | | + +--------+ + + + | TREATMENT PARAMETERS | Routin | 02/16/2016 | Acute myeloid | | | #1 - [facility] | e | 1:05 PM | leukemia (AML), 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 | | | | | | induction failure | | + +--------+ + + + | TREATMENT PARAMETERS | Routin | 02/16/2016 | Acute myeloid | | | #1 - [facility] | e | 1:05 PM | leukemia (AML), 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 | | | | | | induction failure | | + +--------+ + + + documented in this encounter Results BMP + MAG, POC CHM (02/16/2016 1:28 PM PDT) + +---------+ + + + [...] +---------+ + + + | GLUCOSE, | 142 (H) | 60 - 99 mg/dL | [...] + + | LDH, POC | 379 H | 0 - 206 U/L | [...] | [address] | [place], [place] | | | [address] | [facility] | [address] | | | TESTS | | | | + + + + + CBC+DIFF,POC (02/16/2016 1:24 PM PDT) + + + + + + | Component | Value | Ref Range | Performed | Pathologist | | | | | At | Signature | + + + + + + | WBC POC | 10.0 | 4.4 - 11.0 | [facility] - | | | | | 10*3/uL | [place] | | | | | | [facility]UTHIE CARTER | | | | | | OF CARE | | | | | | TESTS | | + + + + + + | RBC POC | 3.12 (L) | 4.50 - 6.00 | [facility] - | | | | | 10*6/uL | [place] | | | | | | RUTHIE CARTER | | | | | | OF CARE | | | | | | TESTS | | + + + + + + | HGB POC | 11.0 (L) | 13.5 - 17.5 | [facility] - | | | | | g/dL | [place] | | | | | | [facility] | | | | | | OF CARE | | | | | | TESTS | | + + + + + + | HCT POC | 33.2 (L) | 41.0 - 53.0 % | [facility] - | | | | | | [place] | | | | | | [facility] | | | | | | OF CARE | | | | | | TESTS | | + + + + + + | MCV POC | 106.4 (H) | 80.0 - 96.0 fL | [...] + + + | MCHC POC | 33.1 | 33.0 - 35.5 | [facility] - | | | | | g/dL | [place] | | | | | | [facility] | | | | | | OF CARE | | | | | | TESTS | | + + + + + + | RDW SD, POC | 49.8 (H) | 35.1 - 46.3 fL | [facility] - | | | | | | [place] | | | | | | [facility] | | | | | | OF CARE | | | | | | TESTS | | + + + + + + | PLT POC | 134 (L) | 150 - 400 | [facility] [...] + + + + | NEUTROPHIL% | 77.2 (H) | 50.0 - 70.0 % | [facility] - | | | POC | | | [place] | | | | | | [facility] | | | | | | OF CARE | | | | | | TESTS | | + + + + + + | LYMPH% POC | 13.4 (L) | 18 - 42 % | [...] + + | EOS %, POC | 1.6 | 1.0 - 3.0 % | [facility] [...] + + + + | NEUTROPHIL# | 7.7 (H) | 1.8 - 7.7 | [facility] [...] + + + + + | [facility] | [address] | [place], [place] | | | [facility] OF CARE | [address] | [address] | | | TESTS | | | | + + + + + LIVER SET (AST,ALT,BILI TOTAL,BILI DIRECT,ALK PHOS,ALB,PROT TOTAL) (02/16/2016 1:09 PM PDT ) + +---------+ + + [...] +---------+ + + + | AST(SGOT) | 99 (H) | <=41 U/L | [facility] | | | | | | LABORATORY | | | | | | SERVICES, | | | | | | CORE | | + +---------+ + + + | ALT (SGPT) | 244 (H) | <=60 U/L | [facility] | [...] | + + + + + | [facility] | [address] | [place] [address] | | | SERVICES, CORE | [address] | | | + + + + + CMV PCR QUANTITATION, PLASMA (02/16/2016 1:09 PM PDT) + + + + + [...] | | | characteristics determined by the [facility] | | | Molecular Diagnostic Center. It has not been cleared or approved by | | | the Food and Drug Administration. FDA approval is not required for | | | clinical use of this test, and therefore validation was done as | | | required under the requirements of the Clinical Laboratory Improvement | | | Act of 1988. The [facility] Molecular | | | Diagnostic Center is a fully licensed and/or accredited clinical | | | laboratory under CLIA, [facility], and the [facility]. | | + + + + + + + + | Performing | Address | City/State/[facility] | Phone Number | | Organization | | | | + + + + + | [facility] | [address] | [place] [address] | | | DIAGNOSTIC | [address] [...] 10 unit/mL IV flush | Given | 02/16/20 | 50 Units | | | | syringe 50 Units 50 Units, | | 16 2:46 | | | | | Intracatheter, NEEDED, | | PM PDT | | | | | Starting Sun02/16/16 at 1331, | | | | | | | Until Sun02/16/16 at 2123, line | | | | | | | patency | | | | | | + +--------+ + +------+------+ +-------+ + +---+---+ | Given | 02/16/20 | 50 Units | | | | | 16 2:45 | | | | | | PM PDT | | | | +-------+ + +---+---+ | Given | 02/16/20 | 50 Units | | | | | 16 2:44 | | | | | | PM PDT | | | | +-------+ + +---+---+ +---+---+ | | | +---+---+ + +---------+ +-----+---+---+ | magnesium sulfate in water IV | New Bag | 02/16/20 | 2 g | | | | (RTU) 2 g 2 g, intravenous, | | 16 1:50 | | | | | ONCE, 1 dose, 02/16/16 at 1345 | | PM PDT | | | | + +---------+ +-----+---+---+ +---+---+ | | | +---+---+ documented in this encounter"
--- OUTSIDE RECORDS SUMMARY | ~2019-05-17 | XMS | Encounter Summary ---
Demographics + + + | Address | [address] | | | [place] [address] | + + + | Home Phone [...] Providers + +------+ + | Care Contact Center Team Lead Name | Role | Phone | + +------+ + | Zayda Hinton | PCP | | + +------+ + Encounter Details +--------+ + + + + | Date | Type | Department | Care Team | Description | +--------+ + + + + | 02/15/ | Pharmacy | Specialty Pharmacy | | | | 2015 | Visit | Services [address] | | | | | | [address] | | | | | | [place], [place] | | | | | | [address] | | | | | | [phone] | | | +--------+ + + + [...] 2019 | Visit | Malignancy | [address] [facility] [address] | | | | | | [address] | | | | | | [place], [place] | | | | | | [address] | | | | | | [phone] | | | | | | | | +--------+---------+ + + + documented as of this encounter Visit Diagnoses Not on filedocumented in this encounter"
--- OUTSIDE RECORDS SUMMARY | ~2019-05-17 | XMS | Encounter Summary ---
Demographics + + + | Address | [address] | | | [place] [address] | + + + | Home Phone [...] Providers + +------+ + | Care Freelance Writer Name | Role | Phone | [...] | | | | | remission | [address] | [facility] | | | | | | Phone: | [facility] | | | | | Procedures | [phone] | [place], [place] | | | | | Post BMT | Fax: | [address] | | | | | Auth to | [phone] | Phone: | | | | | included | | [phone] | | | | | facility, | | Fax: | | | | | diagnostics, | | [phone] | | | | | office | [...] remission (HCC); S/P | | | | [facility] | [place], [place] | allogeneic bone | | | | [address] | [address] | marrow transplant | | | | [address] Mailcode: | [phone] | ([facility]) | | | | [address] | | | | | | Pavilion [place], | | | | | | [place] [address] | | | | | | [phone] | | | +--------+---------+ + + + [...] ORLY - 08/09/2016 7:45 AM PST 08/09/2016 [facility] Primary CHM MD: Yari Garcia MD Primary Oncologist: Yari Garcia MD Diagnosis: AMML, primary refractory Transplant Date: 08/27/15 Donor: MM URD (DPB1 permissive antigen mismatch, male, [id number]) Identifying Data: Khurram Strongsana is a 26 [...] his L ankle. He was evaluated at [facility] ED on 06/[address] angiogram negative [...] acute myelomonocytic leukemia. He was referred to [facility] for further evaluation and man agement of his newly dx'd AML. Pt was admitted to [facility] on 05/26/15. Peripheral [...] CD34, variable CD56, variable CD117, and dim MA294-nhsfk mickey; promonocyte immunophenotype (70% by flow): CD11b, [...] one year anniversary 08/27/16), sooner prn 2. 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 He initial ly responded but flared during taper. He also developed low-level nausea and abd discomfort concerning for GvHD, empirically treated with oral non-absorbables with resolution. He had t apered prednisone to 10 mg po daily when he developed a rash for which he was seen in the ED in [place] in late 01/21. Prednisone was increased back [...] [facility] [address] Mailcode: [id number] [id number] documented in this enc ounter Plan of [...] | | | | | | [place], [place] | | | | | | [address] | | | | | | [phone] | | | | | | | [...]
--- OUTSIDE RECORDS SUMMARY | ~2019-05-17 | XMS | Encounter Summary ---
Demographics + + + | Address | [address] | | | [place] [address] | + + + | Home Phone [...] Team Providers + +------+ + | Care Thread Tool Grinder Set Up Operator Name | Role | Phone | + +------+ + | Pending Pcp Addition | PCP | Unavailable | + +------+ + Reason for Visit + + + | Reason | Comments | + + + | Schedule labs | Neostar | + + + | Dressing change | | + + + Encounter Details +--------+ + + + + | Date | Type | Department | Care Team | Description | +--------+ + + + + | 01/30/ | Clinical | Center for | | Schedule labs | | 2016 | Support | Hematologic | | (Neostar); Dressing | | | Staff | Malignancies at [facility] | | change | | | | [address] | | | | | | [place] Mailcode: | | | | | | [address] | | | | | | [place], | | | | | | [place] [address] | | | | | | [phone] | | | +--------+ + + + [...] + + + | Blood Pressure | 148/86 | 01/31/2016 10:35 AM | | | | | PDT | | + + + + + | Pulse | 77 | 01/31/2016 10:35 AM | | | | | PDT | | + + + + + | Temperature | 36.9 C (98.5 F) | 01/31/2016 10:35 AM | | | | | PDT | | + + + + + | Respiratory Rate | 16 | 01/31/2016 10:35 AM | | | | | PDT | | + + + + + | Oxygen Saturation | 99% | 01/31/2016 10:35 AM | | | | | PDT | | + + + + + | Inhaled Oxygen | - | - | | | Concentration | | | | + + + + + | Weight | 88.1 kg (194 lb 3.2 | 01/31/2016 10:35 AM | | | | oz) | PDT | | + + + + + | Height | - | - | | + + + + + | Body Mass Index | 24.66 | 01/25/2016 8:24 AM | | | | | PDT | | + + + + + documented in this encounter Progress Notes Jyoti Ramachandran, ZAFAR - 01/31/2016 11:02 AM PDTPt is here in Fast Track for lab draw and centr al line dressing change. [facility] Lab Draw: Neostar accessed per protocol. Good blood return noted. Appropriate waste discarded. Labs d rawn and sent. Neostar pulse flushed with 20 mL NS and 5 mL of 10 units/mL Heparin. Neostar intact to left anterior chest wall without induration, patient does have erythema t o the top of dressing site. Dressing removed, skin intact without s/s exit site or tunnel in fection. Using a Central Line Dressing Change kit, site cleansed with Chloraprep. Skin prep applied prior to dressing application. Biopatch applied with SorbaView dressing. Positive pr essure valves changed to each port. All lumens pulse flushed with 5 mL of 10 units/mL Hepari n. Patient tolerated procedure without difficulty. Lab work provided to patient. Pt discharged from clinic. Left clinic Ambulatory [...] [address] | | | | | | [place], [place] | | | | | | [address] | | | | | | [phone] | | | | | | | | +--------+---------+ + + + documented as of this encounter Procedures + +--------+ + + + | Procedure Name | Priori | Date/Time | Associated Diagnosis | Comments | | | ty | | | | + +--------+ + + + | CBC+DIFF,POC | Routin | 01/31/2016 | S/P allogeneic | Results for this | | | e | 10:51 AM | bone marrow | procedure are in the | | | | PDT | transplant (HCC) | results section. 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[facility] primary | | | | | | induction failure | | + +--------+ + + + | BMP + MAG, POC CHM | Routin | 01/31/2016 | S/P allogeneic | Results for this | | | e | 10:49 AM | bone marrow | procedure are in the | | | | PDT | transplant (HCC) | results section. 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[facility])- primary | | | | | | induction failure | | + +--------+ + + + | CMV PCR | Routin | 01/31/2016 | S/P allogeneic | Results for this | | QUANTITATION, PLASMA | e | 10:34 AM | bone marrow | procedure are [...] + | LIVER SET | Urgent | 01/31/2016 | S/P allogeneic | Results for this | | (AST,ALT,BILI | | 10:34 AM | bone marrow | procedure are [...] + documented in this encounter Results CBC+DIFF,POC (01/31/2016 10:51 AM PDT) + + + + + + | Component | Value | Ref Range | Performed | Pathologist | | | | | At | Signature | + + + + + + | WBC POC | 6.8 | 4.4 - 11.0 | [facility] - [...] + + + | HCT POC | 36.5 (L) | 41.0 - 53.0 % | [facility] - | | | | | | [place] | | | | | | [facility] | | | | | | OF CARE | | | | | | TESTS | | + + + + + + | MCV POC | 104.6 (H) | 80.0 - 96.0 fL | [facility] - | | | | | | [place] | | | | | | [facility] | | | | | | OF CARE | | | | | | TESTS | | + + + + + + | MCH POC | 35.2 (H) | 28.5 - 32.3 pg | [...] + + | RDW SD, POC | 52.4 (H) | 35.1 - 46.3 fL | [facility] - | | | | | | [place] | | | | | | [facility] POINT | | | | | | OF CARE | | | | | | TESTS | | + + + + + + | PLT POC | 85 (L) | 150 - 400 | [facility] [...] + + + + | NEUTROPHIL% | 56.8 | 50.0 - 70.0 % | [facility] [...] + + | MONO %, POC | 7.3 | 3.5 - 9.0 % | [facility] - | | | | | | [place] | | | | | | [facility] POINT | | | | | | OF CARE | | | | | | TESTS | | + + + + + + | EOS %, POC | 1.9 | 1.0 - 3.0 % | [facility] - | | | | | | [place] | | | | | | [facility], POINT | | | | | | OF CARE | | | | | | TESTS | | + + + + + + | BASO %, POC | 0.7 | 0.0 - 2.0 % | [facility] - | | | | | | [place] | | | | | | [facility], POINT | | | | | | OF CARE | | | | | | TESTS | | + + + + + + | NEUTROPHIL# | 3.8 | 1.8 - 7.7 | [facility] - [...] + + | [facility] | [address] | [place], [place] | | | RUTHIE CARTER OF [address] | [address] | [address] | | | TESTS | | | | + + + + + BMP + MAG, POC CHM (01/31/2016 10:49 AM PDT) + +---------+ + + + [...] + + + | LDH, POC | 387 (H) | 0 - 206 U/L | [...] [facility] | [address] | [place], [place] | | | [facility] POINT OF CARE | [address] | [address] | | | TESTS | | | | + + + + + LIVER SET (AST,ALT,BILI TOTAL,BILI DIRECT,ALK PHOS,ALB,PROT TOTAL) (01/31/2016 10:34 AM PDT ) + +---------+ + + [...] +---------+ + + + | AST(SGOT) | 83 (H) | <=41 U/L | [facility] | | | | | | LABORATORY | | | | | | SERVICES, | | | | | | CORE | | + +---------+ + + + | ALT (SGPT) | 180 (H) | <=60 U/L | [facility] | [...] [facility] | [address] | [place] [address] | | | SERVICES, CORE | [address] | | | + + + + + CMV PCR QUANTITATION, PLASMA (01/31/2016 10:34 AM PDT) + + + + + [...] fold may not reflect true | [facility] | | biological changes and [...] determined by the [facility] | | | Molecular Diagnostic Center. It [...] of 1988. The [facility] Molecular | | | Diagnostic Center is a fully licensed and/or accredited clinical | | | laboratory under CLIA, [facility], and the [facility]. | | + + + + + + + + | Performing | Address | City/State/Zipcode | Phone Number | | Organization | | | | + + + + + | [facility] | [address] | [place] [address] | | | DIAGNOSTIC | [address] [...] 10 unit/mL IV flush | Given | 07/25/20 | 50 Units | | | | syringe 50 Units 50 Units, | | 16 11:05 | | | | | Intracatheter, NEEDED, | | AM PDT | | | | | Starting Sun01/31/16 at 1104, | | | | | | | Until Sun01/31/16 at 1705, line | | | | | | | patency | | | | | | + +--------+ + +------+------+ +-------+ + +---+---+ | Given | 01/31/20 | 50 Units | | | | | 16 11:03 | | | | | | AM PDT | | | | +-------+ + +---+---+ | Given | 01/31/20 | 50 Units | | | | | 16 11:01 | | | | | | AM PDT | | | | +-------+ + +---+---+ +---+---+ | | | +---+---+ documented in this encounter"
--- OUTSIDE RECORDS SUMMARY | ~2019-05-17 | XMS | Encounter Summary ---
Demographics + + + | Address | [address] | | | [place] [address] | + + + | Home Phone [...] Providers + +------+ + | Care Head Machine Feeder Name | Role | Phone | + +------+ + | Pending Pcp Addition | PCP | Unavailable | + +------+ + Encounter Details +--------+ + + + + | Date | Type | Department | Care Team | Description | +--------+ + + + + | 07/19/ | [facility] | Center for | Yari Garcia MD | | | 2016 | | Hematologic | [address] | | | | | Malignancies at | [address] | | | | | [facility] | [place], [place] | | | | | [address] | [address] | | | | | Debi Burger Mailcode: | [phone] | | | | | [address] | | | | | | [place], | | | | | | [place] [address] | | | | | | [phone] | | | +--------+ + + + [...] Rd | | | | | | [place], [place] | | | | | | [address] | | | | | | [phone] | | | | | | | | +--------+---------+ + + + documented as of this encounter Visit Diagnoses Not on filedocumented in this encounter"
--- OUTSIDE RECORDS SUMMARY | ~2019-05-17 | XMS | Encounter Summary ---
Demographics + + + | Address | [address] | | | [place] [address] | + + + | Home Phone [...] Providers + +------+ + | Care Drilling Contractor Name | Role | Phone | + [...] | | | | | | [place], | | | | | | | [place] | | | | | | | [address] | | | | | | | Phone: | | | | | | | [phone] | | | | | | | Fax: | | | | | | | [phone] | +--------+--------+ + + + + Encounter [...] (HCC) (Primary Dx) | | | | [facility] | [place], [place] | | | | | [address] | [address] | | | | | [place] Mailcode: | [phone] | | | | | [facility] | | | | | | [place], | | | | | | [place] [address] | | | | | | [phone] | | | +--------+---------+ + + + [...] MM URD (DPB1 permissive antigen mismatch, male, [id number]) Identifying Data: Khurram Kelly is a 25 [...] his L ankle. He was evaluated at [facility] ED on 06/[address] angiogram [...] acute myelomonocytic leukemia. He was referred to [facility] for further evaluation and man agement of his newly dx'd AML. Pt was admitted to [facility] on 05/26/15. Peripheral blood was sent [...] CD34, variable CD56, variable CD117, and dim BM130-gpwrx mickey; promonocyte immunophenotype (70% by flow): CD11b, [...] on 04/12/16. He and his travelled to [place] over the weekend for the [employer] Sunday night football game. They were gone [...] qoweekly --> repeat marrow studies today 2. 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 Prednisone was increased back [...] waiting to return from his trip to [place] to contact [facility] for an appt. --> continue current meds --> encouraged pt to contact [facility] to schedule appt --> again encouraged pt to engage with [facility]bmtLINK to establish peer support or AYA support gr janesp resources available at [facility] 7. Follow up --> RTC to f/u with Yari Garcia MD on 05/01/16, sooner prn [facility] [address] Mailcode: [id number] [address] documented in this enc ounter [...] | 2018 | Visit | Malignancy | [address] [place] [address] | | | | | | [facility] | | | | | | [place], [place] | | | | | | [address] | | | | | | [phone] | | | | | | | | +--------+---------+ + + + documented as of this encounter Visit Diagnoses + + | Diagnosis | + + | 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
--- OUTSIDE RECORDS SUMMARY | ~2019-05-17 | XMS | Encounter Summary ---
Demographics + + + | Address | [address] | | | [place] [address] | + + + | Home Phone [...] Team Providers + +------+ + | Care Assembler Semiconductor Name | Role | Phone | + +------+ + | Pending Pcp Addition | PCP | Unavailable | + +------+ + Reason for Visit + + + | Reason | Comments | + + + | Ambulatory | [facility] | | Chemotherapy | | + + [...] | ic leukemia, | [address] | [place] | | | | | not having | [address] | [address] | | | | | achieved | [place], [place] | Rd Mailcode: | | | | | remission | [address] | [id number] | | | | | Procedures | Phone: | [facility] | | | | | [place] | [phone] | Pavilion | | | | | AZACITIDINE | Fax: | [place], [place] | | | | | INJECTION, 1 | [phone] | [address] | | | | | [place] | | Phone: | | | | | CHM,IV | | [phone] | | | | | INFSN,1 HR | | Fax: | | | | | [place] CHM,IV | | [phone] | | | | | INFSN,ADDL | | | | | | | HR [facility] | | | +--------+---------+ + + + + Encounter Details +--------+ + + + + | Date | Type | Department | Care Team | Description | +--------+ + + + + | 11/03/ | Clinical | Center for | | Ambulatory | | 2016 | Support | Hematologic | | Chemotherapy | | | Staff | [facility] | | ([facility]) | | | | [address] | | | | | | [place] Mailcode: | | | | | | [facility] | | | | | | [place], | | | | | | [place] [address] | | | | | | [phone] | | | +--------+ + + + [...] + + + | Blood Pressure | 126/83 | 11/04/2015 8:05 AM | | | | | PDT | | + + + + + | Pulse | 87 | 11/04/2015 8:05 AM | | | | | PDT | | + + + + + | Temperature | 36.9 C (98.4 F) | 11/04/2015 8:05 AM | | | | | PDT | | + + + + + | Respiratory Rate | 16 | 11/04/2015 8:05 AM | | | | | PDT | | + + + + + | Oxygen Saturation | 99% | 11/04/2015 8:05 AM | | | | | PDT | | + + + + + | Inhaled Oxygen | - | - | | | Concentration | | | | + + + + + | Weight | 84.9 kg (187 lb 2.7 | 11/04/2015 8:05 AM | | | | oz) | PDT | | + + + + + | Height | - | - | | + + + + + | Body Mass Index | 24.19 | 08/18/2015 4:35 PM | | | | | PST | | + + + + + documented in this encounter Progress Notes Kassandra Levin, ZAFAR - 11/04/2015 10:17 AM PDTFormatting of this note might be different from jaycee farrell. Chemotherapy Nurse Note Name: Khurram Navaleland Date: 11/04/2015 Physician: Dr. Garcia Allergies: Khurram is allergic to chlorhexidine towelette. Pre-Chemotherapy Pain Score: Patient reports a pain level of 0 today. 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 Was drawn yesterday but cancel led since patient took Tacrolimus at home before appointment. Will draw CBC per infusion pl an and Tacrolimus level today as well. Red lumen tri-star accessed per protocol. Good blood return noted. Appropriate waste disc arded. Labs drawn and sent. Red lumen pulse flushed with 30 mL NS and cap changed. CBC re sults given and reviewed with patient and spouse. Also notified them that chest x ray done 10/26 showed "clear lungs." Chemotherapy was checked by 2 RNs. Vidaza was infused per chemotherapy protocol and comple edward without adverse event. Positive blood return noted pre and post infusion. Red lumen pu lse flushed with 20 ml NS and 5 ml Heparin 10 units/ml. Blue and White lumens pulse flushed with 10 ml NS and 5 ml Heparin 10 units/ml. Pt discharged ambulatory from clinic with spou se. Refer to MAR and flowsheet for treatment details. Kassandra Levin, RN documented in this encoun ter Plan [...] 2019 | Visit | Malignancy | [address] | | | | | | [address] | | | | | | [place], [place] | | | | | | [address] | | | | | | [phone] | | | | | | | | +--------+---------+ + + + documented as of this encounter Procedures + +--------+ + + + | Procedure Name | Priori | Date/Time | Associated Diagnosis | Comments | | | ty | | | | + +--------+ + + + | CBC+DIFF,POC | Routin | 11/04/2015 | S/P allogeneic | Results for this | | | e | 8:19 AM | bone marrow | procedure are in the | | | | PDT | transplant ([facility]) | results section. 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[facility])- primary | | | | | | induction failure | | + +--------+ + + + | TACROLIMUS, WHOLE | Routin | 11/04/2015 | S/P allogeneic | Results for this | | BLOOD | e | 8:06 AM | bone marrow | procedure are [...] + | TREATMENT PARAMETERS | Routin | 11/04/2015 | Acute myeloid | | | #2 - [facility]ACON | e | 7:58 AM | leukemia (AML), 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 | | | | | | induction failure | | + +--------+ + + + | TREATMENT PARAMETERS | Routin | 11/04/2015 | Acute myeloid | | | #2 - BEACON | e | 7:58 AM | leukemia (AML), 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 | | | | | | induction failure | | + +--------+ + + + | TREATMENT PARAMETERS | Routin | 11/04/2015 | Acute myeloid | | | #2 - [facility]ACON | e | 7:58 AM | leukemia (AML), 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 | | | | | | induction failure | | + +--------+ + + + | TREATMENT PARAMETERS | Routin | 11/04/2015 | Acute myeloid | | | #2 - [facility]ACON | e | 7:58 AM | leukemia (AML), 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 | | | | | | induction failure | | + +--------+ + + + | TREATMENT PARAMETERS | Routin | 11/04/2015 | Acute myeloid | | | #2 - [facility]ON | e | 7:58 AM | leukemia (AML), 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 | | | | | | induction failure | | + +--------+ + + + | NURSING | Routin | 11/04/2015 | Acute myeloid | | | COMMUNICATION #3 - | e | 7:58 AM | leukemia (AML), M4 | | | [facility] | | PDT | ([facility])- primary | | | | | | induction failure | | + +--------+ + + + | NURSING | Routin | 11/04/2015 | Acute myeloid | | | COMMUNICATION #2 - | e | 7:58 AM | leukemia (AML), M4 | | | [facility] | | PDT | ([facility])- primary | | | | | | induction failure | | + +--------+ + + + | NURSING | Routin | 11/04/2015 | Acute myeloid | | | COMMUNICATION #1 - | e | 7:58 AM | leukemia (AML), M4 | | | [facility] | | PDT | ([facility])- primary | | | | | | induction failure | | + +--------+ + + + | TREATMENT PARAMETERS | Routin | 11/04/2015 | Acute myeloid | | | #1 - [facility]ON | e | 7:58 AM | leukemia (AML), 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 | | | | | | induction failure | | + +--------+ + + + | TREATMENT PARAMETERS | Routin | 11/04/2015 | Acute myeloid | | | #1 - [facility]ON | e | 7:58 AM | leukemia (AML), M4 | | | | | PDT | ([facility])- primary | | | | | | induction failure | | + +--------+ + + + documented in this encounter Results CBC+DIFF,POC (11/04/2015 8:19 AM PDT) + + + + [...] + + + | RBC POC | 3.41 (L) | 4.50 - 6.00 | [facility] - | | | | | 10*6/uL | [facility] | | | | | | [facility] POINT | | | | | | OF CARE | | | | | | TESTS | | + + + + + + | HGB POC | 11.4 (L) | 13.5 - 17.5 | [facility] [...] + + + | MCV POC | 102.1 (H) | 80.0 - 96.0 fL | [...] + + | RDW SD, POC | 61.8 (H) | 35.1 - 46.3 fL | [facility] - | | | | | | [facility] | | | | | | [facility] POINT | | | | | | OF CARE | | | | | | TESTS | | + + + + + + | PLT POC | 74 (L) | 150 - 400 | [facility] [...] + + + | LYMPH% POC | 28.8 | 18 - 42 % | [facility] - | | | | | | [facility] | | | | | | [facility], POINT | | | | | | OF CARE | | | | | | TESTS | | + + + + + + | MONO %, POC | 4.5 | 3.5 - 9.0 % | [facility] [...] + + + | YESSICA SORTO | [address] | [place], [place] | | | [facility] POINT OF CARE | [address] | [address] | | | TESTS | | | | + + + + + TACROLIMUS, WHOLE BLOOD (11/04/2015 8:06 AM PDT) + +-------+ + + + | Component | Value | Ref Range | Performed | Pathologist | | | | | At | Signature | + +-------+ + + + | TACROLIMUS | 5.2 | 5.0 - 15.0 | [facility] | [...] | + + + | Test performed at [facility]. Therapeutic range is based on | [facility] | | a whole blood specimen drawn 12 hours post-dose or prior to next dose | LABORATORY | | (the trough). Some other factors influencing therapeutic range, dose | SERVICES, | | administered, and result interpretation include time since | [facility] + | | transplantation, the organ transplanted, co-administration of other | [facility]AG | | immunosuppressants and interaction with other drugs that may increase | | | or decrease Tacrolimus concentrations. | | + + + + + + + + | Performing | Address | City/State/Zipcode | Phone Number | | Organization | | | | + + + + + | [facility] | [address] | [place] [address] | | | SERVICES, SPECIAL | [place] [...] + +---------+ +-------+-------+ + | azaCITIDine (VIDAZA) 65 mg in | New Bag | 11/04/19 | 65 mg | 213 | Central | | NaCl 0.9 % IV 65 mg (rounded | | 16 8:50 | | mL/hr | Line | | from 64.64 mg = 32 mg/m2 | | AM PDT | | | | | 2.02 m2 Treatment plan recorded | | | | | | | BSA), intravenous, Administer | | | | | | | over 30 Minutes, ONCE, 1 dose, | | | | | | | Lupe 11/04/15 at 0815, HIGH RISK | | | [...] 10 unit/mL IV flush | Given | 11/04/19 | 50 Units | | Central | | syringe 50 Units 50 Units, | | 16 9:39 | | | Line | | Intracatheter, NEEDED, | | AM PDT | | | | | Starting Lupe 11/04/15 at 0945, | | | | | | | Until Lupe 11/04/15 at 1622, line | | | | | | | patency | | | | | | + +-------+ + +---+ + +-------+ + +---+ + | Given | 11/04/19 | 50 Units | | Central | | | 16 9:38 | | | Line | | | AM PDT | | | | +-------+ + +---+ + | Given | 11/04/19 | 50 Units | | Central | | | 16 9:37 | | | Line | | | AM PDT | | | | +-------+ + +---+ + +---+---+ | | | +---+---+ + +-------+ +------+---+---+ | ondansetron (ZOFRAN) tablet 8 | Given | 11/04/19 | 8 mg | | | | mg 8 mg, oral, ONCE, 1 dose, Lupe | | 16 8:24 | | | | | 11/04/15 at 0815 | | AM PDT | | | | + +-------+ +------+---+---+ +---+---+ | | | +---+---+ documented in this encounter
--- OUTSIDE RECORDS SUMMARY | ~2019-05-17 | XMS | Encounter Summary ---
Demographics + + + | Address | [address] | | | [place] [address] | + + + | Home Phone [...] Team Providers + +------+ + | Care Vacation Planner Name | Role | Phone | [...] | | | | | | | [address] | | | | | | | [address] | | | | | | | [place], | | | | | | | [place] | | | | | | | [address] | | | | | | | Phone: | | | | | | | [phone] | | | | | | | Fax: | | | | | | | [phone] | +--------+--------+ + + + + Encounter Details +--------+---------+ + + + | Date | Type | Department | Care Team | Description | +--------+---------+ + + + | 03/06/ | Office | Center for | Yari Garcia MD | S/P allogeneic bone | | 2016 | Visit | Hematologic | [address] | marrow transplant | | | | Malignancies at | [address] | (HCC) (Primary Dx) | | | | [facility] | [place], [place] | | | | | [address] | [address] | | | | | [address] Mailcode: | [phone] | | | | | [facility] | | | | | | [place], | | | | | | [place] [address] | | | | | | [phone] | | | +--------+---------+ + + + [...] | Blood Pressure | 129/81 | 03/06/2016 9:09 AM | | | | | PDT | | + + + + + | Pulse | 82 | 03/06/2016 9:09 AM | | | | | PDT | | + + + + + | Temperature | 36.7 C (98 F) | 03/06/2016 9:09 AM | | | | | PDT | | + + + + + | Respiratory Rate | 16 | 03/06/2016 9:09 AM | | | | | PDT | | + + + + + | Oxygen Saturation | 98% | 03/06/2016 9:09 AM | | | | | PDT | | + + + + + | Inhaled Oxygen | - | - | | | Concentration | | | | + + + + + | Weight | 99.1 kg (218 lb 7.6 | 03/06/2016 9:09 AM | | | | oz) | PDT | | + + + + + | Height | - | - | | + + + + + | Body Mass Index | 27.74 | 01/25/2016 8:24 AM | | | | | PDT | | + + + + + documented in this encounter Patient Instructions Patient Instructions Christina Hernandez RN - 03/06/2016 10:00 AM PDTYou are doing really well. We will plan for you to get your central line removed (one our administrative coordinators will schedule this and call you with the appointment) We will also plan for you to get your 6th and final cycle of Azacitidine starting March 20. (x 5 days) Then when that is complete we will plan a bone marrow biopsy. Check out at the commercial front load operator today and make your next appointments. You can also call the flaco whitehead at [phone]. If you have any questions, or if you need prescription refills, or are experiencing any sym ptoms or side effects please call our truck hopper at [phone] documented in this encounter Progress Notes Yari Garcia MD - 03/06/2016 9:50 AM PDT 193 days post transplant 03/06/16 [facility] MD: Yari Garcia MD Primary Oncologist: Yari Garcia MD Diagnosis: AMML, primary refractory Transplant Date: 08/27/15 Donor: MM URD (DPB1 permissive antigen mismatch, male, [id number]) Identifying Data: Khurram Kelly is a 25 [...] his L ankle. He was evaluated at [facility] ED on 06/[address] angiogram negative [...] myelomonocytic leukemia. He was referred to [facility] for further evaluation and man agement of his newly dx'd AML. Pt was admitted to [facility] on 05/26/15. Peripheral blood was [...] CD34, variable CD56, variable CD117, and dim BE434-wxasw mickey; promonocyte immunophenotype (70% by flow): CD11b, [...] durin g taper. He is currently day +193 s/p transplant, c 5 of azacitidine and returns to clinic today for scheduled follow-up. Interim History: Khurram returns to clinic today and is feeling pretty good overall. He h as been eating and drinking well. No recurrence of rash. He has had a marked increase in h is anxiety levels, but has been managing with anxiolytics. He is very nervous about leaving [place] as he remains worried about his overall health and getting health care providers w raegan don't know about GVHD. No recent infectious complications. Weight has been increasing. Remains active. Has been walking, hitting golf balls. Has had some increased swelling in his ankles. No recurrence of rash. No diarrhea. A complete Review of Systems was completed [...] (two tablets) by mouth every other day tacrolimus 0.5 [...] for dresssing change per pt. Filed Vitals: 03/06/2016 9:09 AM Weight: 99.1 kg (218 lb 7.6 oz) BP: 129/81 Pulse: 82 Temp: 36.7 C (98 F) TempSrc: Oral Resp: 16 SpO2: 98% PainSc: 0 - Zero BMI: 27.74 kg/(m^2) Physical Exam Constitutional: He is well-developed, [...] Musculoskeletal: Normal range of motion. He exhibits edema. 1+ pedal edema to ankles. Lymphadenopathy: He has no cervical adenopathy. Skin: Skin is warm and dry. No visible rash left. He is not diaphoretic. There is no erythe ma. No pallor. Clinical Anode Crew Supervisor on 03/06/2016 Component Date Value WBC POC 03/06/2016 7.0 RBC POC 03/06/2016 3.27* HGB POC 03/06/2016 11.8* HCT POC 03/06/2016 35.9* MCV POC 03/06/2016 109.8* MCH POC 03/06/2016 36.1* MCHC POC 03/06/2016 32.9 RDW SD, POC 03/06/2016 56.2* PLT POC 03/06/2016 135* MPV POC 03/06/2016 8.2* NEUTROPHIL% POC 03/06/2016 65.0 LYMPH% POC 03/06/2016 22.9 MONO %, POC 03/06/2016 8.4 EOS %, POC 03/06/2016 3.3* BASO %, POC 03/06/2016 0.4 NEUTROPHIL# POC 03/06/2016 4.6 LYMPH# POC 03/06/2016 1.6 MONO #, POC 03/06/2016 0.6 EOS #, POC 03/06/2016 0.2 BASO #, POC 03/06/2016 0.0 CBC COMMENT, POC 03/06/2016 Imm Gran. Lft Shift. SODIUM, POC 03/06/2016 140 POTASSIUM, POC 03/06/2016 3.7 TOTAL CO2, POC 03/06/2016 25 CHLORIDE, POC 03/06/2016 104 GLUCOSE, POC 03/06/2016 119* CALCIUM TOTAL, POC 03/06/2016 9.5 BUN, POC 03/06/2016 13 CREATININE, POC 03/06/2016 0.8 LDH, POC 03/06/2016 358* MAGNESIUM, POC 03/06/2016 1.9 CMV DNA QUANTITATION BY * 03/06/2016 Undetected ALBUMIN, PLASMA (LAB) 03/06/2016 3.6 BILIRUBIN TOTAL 03/06/2016 0.4 BILIRUBIN DIRECT 03/06/2016 <0.1 ALK PHOS 03/06/2016 91 AST(SGOT) 03/06/2016 67* ALT (SGPT) 03/06/2016 143* TOTAL PROTEIN, PLASMA (L* 03/06/2016 6.7 AST CMNT 03/06/2016 Sl Hemo Assessment/Plan: 1. Hematology: Khurram Kelly is currently day +193 s/p tBuCy-conditioned unrel ated donor PBSC transplant for primary refractory AML. His most recent marrow studies [facility] 11/22/15 showed a hypocellular marrow (patchy 15%) with trilineage hematopoiesis and no m orphologic and immunologic evidence of acute leukemia. Karyotype 46,XY[19]. VNTR showed no d etectable host cells. 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 He began maintenance azacitidine on 11/01/15, currently c5. Perip heral blood counts WNL aside from fluctuating thrombocytopenia. Continues with no evidence o f disease by peripheral smear. --> continue CBC q1 week during initial 1-2 weeks of each cycle --> plan to complete 6 cycles of post-transplant azacitidine due to active disease at time of transplant --> repeat marrow studies after c6 of azacitidine - tentatively scheduled for mid-April --> repeat chimerism at that time 2. 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 Presented to ER locally in [place] 02/04/16 with progressive itchy rash. Sta rted back on 20 mg daily of prednisone --> decrease prednisone to 20 mg daily alternating with 10 mg daily --> continue tacrolimus 0.5 mg bid --> continue oral non-absorbables --> continue topical triamcinolone --> no need to follow up with dermatology given rapid resolution of rash 3. Infectious Disease: Afebrile without localizing s/s [...] due to azacitidine maintenance therapy. --> continue acyclovir --> due to CMV reactivation prior to day +100, monitor PCRs q1-2 weeks through day +270 4. Fluid, Electrolyte and Nutrition: Appetite remains good, feels he's eating well with allegra quate po fluid intake. His electrolytes are reviewed [...] tapers 6. Follow up --> RTC for weekly labs and provider visits --> next BMBx after completion of 6 cycles of post-tx azacytidine Yari Garcia MD, MS Fire Sprinkler Fittercorrespondence school instructor [facility] [address] [place] [address] documented in this enc ounter Plan of [...] Rd | | | | | | [place], [place] | | | | | | [address] | | | | | | [phone] | | | | | | | | +--------+---------+ + + + documented as of this encounter Visit Diagnoses + + | Diagnosis | + + | 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
--- OUTSIDE RECORDS SUMMARY | ~2019-05-17 | XMS | Encounter Summary ---
Demographics + + + | Address | [address] | | | [place] [address] | + + + | Home Phone [...] Team Providers + +------+ + | Care Video Games Mechanic Name | Role | Phone | + +------+ + | Zayda Hinton | PCP | | + +------+ + Encounter Details +--------+ + + + + | Date | Type | Department | Care Team | Description | +--------+ + + + + | 08/18/ | Pharmacy | Specialty Pharmacy | | | | 2016 | Visit | Services [address] | | | | | | [address] | | | | | | [place], [place] | | | | | | [address] | | | | | | [phone] | | | +--------+ + + + [...] | Visit | Malignancy | [address] [facility] | | | | | | [address] | | | | | | [place], [place] | | | | | | [address] | | | | | | [phone] | | | | | | | | +--------+---------+ + + + documented as of this encounter Visit Diagnoses Not on filedocumented in this encounter"
--- OUTSIDE RECORDS SUMMARY | ~2019-05-17 | XMS | Encounter Summary ---
Demographics + + + | Address | [address] | | | [place] [address] | + + + | Home Phone [...] Team Providers + +------+ + | Care Algebraist Name | Role | Phone | + [...] | | | | | remission | [address] | [place] | | | | | | Phone: | Pavilion | | | | | Procedures | [phone] | [place], [place] | | | | | Post [address] | Fax: | [address] | | | | | Auth to | [phone] | Phone: | | | | | included | | [phone] | | | | | facility, | | Fax: | | | | | diagnostics, | | [phone] | | | | | office | [...] | | | | | | [id number] | | | | | | [place], | | | | | | [place] [address] | | | | | | [phone] | | | +--------+ + + + [...] to flu vaccine? No Prior history of Guillain-Oostburg syndrome? No (For patients receiving Fluarix): Allergy [...] 2019 | Visit | Malignancy | [address] [facility] | | | | | | [address] | | | | | | [place], [place] | | | | | | [address] | | | | | | [phone] | | | | | | | [...]
--- OUTSIDE RECORDS SUMMARY | ~2019-05-17 | XMS | Encounter Summary ---
Demographics + + + | Address | [address] | | | [place] [address] | + + + | Home Phone [...] Team Providers + +------+ + | Care Airborne Operations Superintendent Name | Role | Phone [...] | | | [address] | [facility] | | | | | Mailcode: UHS13 | [place] [address] | | | | | [place] | | | | | | [address], [place] | | | | | | [address] | | | | | | [phone] | | | +--------+ + + + [...] 2018 | Visit | Malignancy | [address] | | | | | | [address] | | | | | | [place], [place] | | | | | | [address] | | | | | | [phone] | | | | | | | [...] | SPECIAL | | | ION | [id number]: | | DIAGNOSTICS | | | | [...] | | | | | | intermediate designer meds.Dyspnea: | | | | | | [...] 6.31 | | | | | | [id number] (L) | | | | | | [...] + + + + + + | WWS44-47% | 4.12 | 5.15 L/sec | [facility] | | | PRE | | | SPECIAL | | | | | | DIAGNOSTICS | | | | | | - | | | | | | PULMONARY | | | | | | FUNCTION | | + + + + + + | ZYV44-32% | 79 | % | [facility] | [...] YESSICA HARPER | [address] | [place], [place] | | | DIAGNOSTICS - | [address] | [address] | | | PULMONARY FUNCTION | | | | + + + + + documented in this encounter Visit Diagnoses + + | Diagnosis | + + | Encounter for long-term current use of medication | + + documented in this encounter"
--- OUTSIDE RECORDS SUMMARY | ~2019-05-17 | XMS | Encounter Summary ---
Demographics + + + | Address | [address] | | | [place] [address] | + + + | Home Phone [...] Providers + +------+ + | Care Fender Mechanic Apprentice Name | Role | Phone | + +------+ + | Zayda Hinton | PCP | | + +------+ + Encounter Details +--------+ + + + + | Date | Type | Department | Care Team | Description | +--------+ + + + + | 01/13/ | Pharmacy | Specialty Pharmacy | | | | 2015 | Visit | Services [address] | | | | | | [address] | | | | | | [place], [place] | | | | | | [address] | | | | | | [phone] | | | +--------+ + + + [...] Rd | | | | | | [place], [place] | | | | | | [address] | | | | | | [phone] | | | | | | | | +--------+---------+ + + + documented as of this encounter Visit Diagnoses Not on filedocumented in this encounter"
--- OUTSIDE RECORDS SUMMARY | ~2019-05-17 | XMS | Encounter Summary ---
Demographics + + + | Address | [address] | | | [place] [address] | + + + | Home Phone [...] Team Providers + +------+ + | Care Licensing And Registration Director Name | Role | Phone | + +------+ + | Pending Pcp Addition | PCP | Unavailable | + +------+ + Encounter Details +--------+ + + + + | Date | Type | Department | Care Team | Description | +--------+ + + + + | 08/24/ | Abstract | Center for | Yari Garcia MD | | | 2016 | | Hematologic | [address] | | | | | Malignancies at | [address] | | | | | [place] | [place], [place] | | | | | [address] | [address] | | | | | [address] Mailcode: | [phone] | | | | | [facility] | | | | | | [place], | | | | | | [place] [address] | | | | | | [phone] | | | +--------+ + + + [...] | | | | | | [place], [place] | | | | | | [address] | | | | | | [phone] | | | | | | | | +--------+---------+ + + + documented as of this encounter Visit Diagnoses Not on filedocumented in this encounter"
--- OUTSIDE RECORDS SUMMARY | ~2019-05-17 | XMS | Encounter Summary ---
Demographics + + + | Address | [address] | | | [place] [address] | + + + | Home Phone [...] Team Providers + +------+ + | Care Packer Name | Role | Phone | + +------+ + | Pending Pcp Addition | PCP | Unavailable | + +------+ + Reason for Visit + + + | Reason | Comments | + + + | Lab Draw | [facility] | + + + | Chemotherapy | [facility] D4C4 | + + + Chemotherapy (Routine) +--------+---------+ [...] | ic leukemia, | [address] | [address] | | | | | not having | [address] | [address] | | | | | achieved | [place], [place] | Rd Mailcode: | | | | | remission | [address] | [id number] | | | | | Procedures | Phone: | [place] | | | | | ID | [phone] | Pavilion | | | | | AZACITIDINE | Fax: | [place], [place] | | | | | INJECTION, 1 | [phone] | [address] | | | | | MG ID | | Phone: | | | | | CHM,IV | | [phone] | | | | | INFSN,1 HR | | Fax: | | | | | ID CHM,IV | | [phone] | | | | | INFSN,ADDL | | | | | | | HR [facility] | | | +--------+---------+ + + + + Encounter Details +--------+ + + + + | Date | Type | Department | Care Team | Description | +--------+ + + + + | 01/26/ | Clinical | [facility] for | | Lab Draw ([facility]); | | 2015 | Support | Hematologic | | Chemotherapy ([facility] | | | Staff | Malignancies at [facility] | | D4C4 ) | | | | [address] | | | | | | [address] Mailcode: | | | | | | [id number] [place] | | | | | | [place], | | | | | | [place] [address] | | | | | | [phone] | | | +--------+ + + + [...] + + + | Blood Pressure | 117/75 | 01/27/2016 8:09 AM | | | | | PDT | | + + + + + | Pulse | 75 | 01/27/2016 8:09 AM | | | | | PDT | | + + + + + | Temperature | 36.9 C (98.4 F) | 01/27/2016 8:09 AM | | | | | PDT | | + + + + + | Respiratory Rate | 18 | 01/27/2016 8:09 AM | | | | | PDT | | + + + + + | Oxygen Saturation | 97% | 01/27/2016 8:09 AM | | | | | PDT | | + + + + + | Inhaled Oxygen | - | - | | | Concentration | | | | + + + + + | Weight | 88.9 kg (195 lb 15.8 | 01/27/2016 8:09 AM | | | | oz) | PDT | | + + + + + | Height | - | - | | + + + + + | Body Mass Index | 24.89 | 01/25/2016 8:24 AM | | | | | PDT | | + + + + + documented in this encounter Progress Notes Ni Nelson, ZAFAR - 01/27/2016 8:35 AM PDTFormatting of this note might be different fr om the original. Hematologic Malignancy: Primary refractory AML Conditioning regimen: tBuCy Date of transplant: 08/27/2015 (two day 0s) Donor: MM U[facility] (DPB1 permissive antigen mismatch, male, [id number]) Patient ambulated in with spouse. Patient denies fevers, chills, sob, nausea, vomiting, everardo rrhea, constipation, and bleeding. He reports his appetite is fantastic and he has been winifred jen 2L more of fluids a day. He denies lightheadness, dizziness, or swelling. Patient repo rts sleeping well and overall feeling great, he will have some nausea that comes and goes. Tracee barrera has no rash or swelling. He reports he has a little bit more fatigue this week with as the days go by receiving chemotherapy. Patient on Tacrolimus taper, no level drawn. VAD Lab Draw: [facility] accessed per protocol. Good blood return noted. Appropriate waste discarded. Lab s drawn and sent. [facility] pulse flushed with 20 mL NS and 5 mL of 10 units/mL Heparin. Per infusion plan: No transfusions needed. No electrolyte replacement needed. Patient due f or Pentamidine, patient prefers to have it on his last day of chemotherapy on Sunday01/28/16 Supportive plan: none Chemo plan: D4 C4 [facility] Labs: Lab Results Component Value Date WBC 6.5 01/27/2016 HB 13.1* 01/27/2016 HCT 36.6* 01/27/2016 PLT 83* 01/27/2016 BUN 19 01/27/2016 CR 1.0 01/27/2016 Narrative: Zofran 8 mg PO given as [...] d ambulatory with . Next Appointment in [facility] is on 01/28/16 documented in this e ncounter Plan of [...] Rd | | | | | | [place], [place] | | | | | | [address] | | | | | | [phone] | | | | | | | | +--------+---------+ + + + documented as of this encounter Procedures + +--------+ + + + | Procedure Name | Priori | Date/Time | Associated Diagnosis | Comments | | | ty | | | | + +--------+ + + + | BMP + MAG, POC CHM | Routin | 01/27/2016 | S/P allogeneic | Results for this | | | e | 8:19 AM | bone marrow | procedure are in the | | | | PDT | transplant (HCC) | results section. 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[facility])- primary | | | | | | induction failure | | + +--------+ + + + | CBC+DIFF,POC | Routin | 01/27/2016 | S/P allogeneic | Results for this | | | e | 8:19 AM | bone marrow | procedure are in the | | | | PDT | transplant (HCC) | results section. 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[facility])- primary | | | | | | induction failure | | + +--------+ + + + | TREATMENT PARAMETERS | Routin | 01/27/2016 | 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:00 AM | leukemia (AML), M4 | | | | | PDT | ([facility])- primary | | | | | | induction failure | | + +--------+ + + + | TREATMENT PARAMETERS | Routin | 01/27/2016 | 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:00 AM | leukemia (AML), 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 | | | | | | induction failure | | + +--------+ + + + | TREATMENT PARAMETERS | Routin | 01/27/2016 | 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:00 AM | leukemia (AML), 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 | | | | | | induction failure | | + +--------+ + + + | TREATMENT PARAMETERS | Routin | 01/27/2016 | 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:00 AM | leukemia (AML), 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 | | | | | | induction failure | | + +--------+ + + + | TREATMENT PARAMETERS | Routin | 01/27/2016 | 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:00 AM | leukemia (AML), 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 | | | | | | induction failure | | + +--------+ + + + | NURSING | Routin | 01/27/2016 | S/P allogeneic | | | COMMUNICATION #5 - | e | 8:00 AM | bone marrow | | | [facility] | | PDT | transplant (HCC) | 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 | | + +--------+ + + + | NURSING | Routin | 01/27/2016 | S/P allogeneic | | | COMMUNICATION #4 - | e | 8:00 AM | bone marrow | | | [facility] | | PDT | transplant (HCC) | 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 | | + +--------+ + + + | NURSING | Routin | 01/27/2016 | S/P allogeneic | | | COMMUNICATION #3 - | e | 8:00 AM | bone marrow | | | [facility] | | PDT | transplant (HCC) | 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[facility])- primary | | | | | | induction failure | | + +--------+ + + + | NURSING | Routin | 01/27/2016 | S/P allogeneic | | | COMMUNICATION #3 - | e | 8:00 AM | bone marrow | | | [place] | | PDT | transplant (HCC) | 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[facility])- primary | | | | | | induction failure | | + +--------+ + + + | NURSING | Routin | 01/27/2016 | S/P allogeneic | | | COMMUNICATION #2 - | e | 8:00 AM | bone marrow | | | [place] | | PDT | transplant (HCC) | 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[facility])- primary | | | | | | induction failure | | + +--------+ + + + | NURSING | Routin | 01/27/2016 | S/P allogeneic | | | COMMUNICATION #2 - | e | 8:00 AM | bone marrow | | | [place] | | PDT | transplant (HCC) | 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[facility])- primary | | | | | | induction failure | | + +--------+ + + + | NURSING | Routin | 01/27/2016 | S/P allogeneic | | | COMMUNICATION #1 - | e | 8:00 AM | bone marrow | | | [place] | | PDT | transplant (HCC) | 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[facility])- primary | | | | | | induction failure | | + +--------+ + + + | NURSING | Routin | 01/27/2016 | S/P allogeneic | | | COMMUNICATION #1 - | e | 8:00 AM | bone marrow | | | [place] | | PDT | transplant (HCC) | 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 | | + +--------+ + + + | TREATMENT PARAMETERS | Routin | 01/27/2016 | S/P allogeneic | | | #1 - [place] | e | 8:00 AM | bone marrow | | | | | PDT | transplant (HCC) | 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[facility])- primary | | | | | | induction failure | | + +--------+ + + + | TREATMENT PARAMETERS | Routin | 01/27/2016 | S/P allogeneic | | | #1 - [place] | e | 8:00 AM | bone marrow | | | | | PDT | transplant (HCC) | 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[facility])- primary | | | | | | induction failure | | + +--------+ + + + | TREATMENT PARAMETERS | Routin | 01/27/2016 | S/P allogeneic | | | #1 - [place] | e | 8:00 AM | bone marrow | | | | | PDT | transplant (HCC) | 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 | | + +--------+ + + + | LIVER SET | Urgent | 01/27/2016 | S/P allogeneic | Results for this | | (AST,ALT,BILI | | 8:00 AM | bone marrow | procedure are [...] encounter Results BMP + MAG, POC CHM (01/27/2016 8:19 AM PDT) + +---------+ + + [...] + + + | LDH, POC | 370 (H) | 0 - 206 U/L | [...] + | [facility] | [address] | [place], [place] | | | RUTHIE CARTER OF [address] | [facility] | [address] | | | TESTS | | | | + + + + + CBC+DIFF,POC (01/27/2016 8:19 AM PDT) + + + + + + | Component | Value | Ref Range | Performed | Pathologist | | | | | At | Signature | + + + + + + | WBC POC | 6.5 | 4.4 - 11.0 | [facility] - [...] + + + | HCT POC | 36.6 (L) | 41.0 - 53.0 % | [facility] - | | | | | | [facility] | | | | | | [facility] | | | | | | OF CARE | | | | | | TESTS | | + + + + + + | MCV POC | 103.1 (H) | 80.0 - 96.0 fL | [facility] - | | | | | | [facility] | | | | | | [facility] | | | | | | OF CARE | | | | | | TESTS | | + + + + + + | MCH POC | 36.9 (H) | 28.5 - 32.3 pg | [facility] - | | | | | | [facility] | | | | | | [facility] | | | | | | OF CARE | | | | | | TESTS | | + + + + + + | MCHC POC | 35.8 | 33.0 - 35.5 | [facility] - | | | | | g/dL | [facility] | | | | | | [facility] | | | | | | OF CARE | | | | | | TESTS | | + + + + + + | RDW SD, POC | 53.7 (H) | 35.1 - 46.3 fL | [facility] - | | | | | | [facility] | | | | | | [facility] | | | | | | OF CARE | | | | | | TESTS | | + + + + + + | PLT POC | 83 (L) | 150 - 400 | [facility] [...] + + + + | NEUTROPHIL% | 62.9 | 50.0 - 70.0 % | [facility] - | | | POC | | | [facility] | | | | | | [facility] | | | | | | OF CARE | | | | | | TESTS | | + + + + + + | LYMPH% POC | 28.3 | 18 - 42 % | [facility] [...] [facility] | [address] | [place], [place] | | | RUTHIE CARTER OF [facility] | [address] | [address] | | | TESTS | | | | + + + + + LIVER SET (AST,ALT,BILI TOTAL,BILI DIRECT,ALK PHOS,ALB,PROT TOTAL) (01/27/2016 8:00 AM PDT ) + +---------+ + + [...] + + + | ALT (SGPT) | 146 (H) | <=60 U/L | [facility] | [...] [facility] | [address] | [place] [address] | | | SERVICES, CORE | [address] [...] 70 mg in | New Bag | 01/27/20 | 70 mg | 214 | | [...] | | | | | | | [facility] 01/27/16 at 0815, HIGH RISK | | | | | | | MEDICATION-CHEMOTHERAPY | | | | | | | Administration must be completed | | | | | | | within 1 hour of preparation., | | | | | | + +---------+ +-------+-------+------+ +---+---+ | | | +---+---+ + +-------+ + +---+---+ | heparin 10 unit/mL IV flush | Given | 01/27/20 | 50 Units | | | | syringe 50 Units 50 Units, | | 16 9:57 | | | | | Intracatheter, NEEDED, | | AM PDT | | | | | Starting Lupe 01/27/16 at 0901, | | | | | | | Until Lupe 01/27/16 at 1614, line | | | | | | | patency | | | | | | + +-------+ + +---+---+ +-------+ + +---+---+ | Given | 01/27/20 | 50 Units | | | | | 16 9:56 | | | | | | AM PDT | | | | +-------+ + +---+---+ | Given | 01/27/20 | 50 Units | | | | | 16 9:55 | | | | | | AM PDT | | | | +-------+ + +---+---+ +---+---+ | | | +---+---+ + +-------+ +------+---+---+ | ondansetron (ZOFRAN) tablet 8 | Given | 01/27/20 | 8 mg | | | | mg 8 mg, oral, ONCE, 1 dose, Lupe | | 16 8:31 | | | | | 01/27/16 at 0815 | | AM PDT | | | | + +-------+ +------+---+---+ +---+---+ | | | +---+---+ documented in this encounter"
--- OUTSIDE RECORDS SUMMARY | ~2019-05-17 | XMS | Encounter Summary ---
Demographics + + + | Address | [address] | | | [place] [address] | + + + | Home Phone [...] Team Providers + +------+ + | Care Scrapper Name | Role | Phone | + +------+ + | Zayda Hinton | PCP | | + +------+ + Encounter Details +--------+ + + + + | Date | Type | Department | Care Team | Description | +--------+ + + + + | 04/18/ | Pharmacy | Specialty Pharmacy | | | | 2015 | Visit | Services [address] | | | | | | [address] | | | | | | [place], [place] | | | | | | [address] | | | | | | [phone] | | | +--------+ + + + [...] Rd | | | | | | [place], [place] | | | | | | [address] | | | | | | [phone] | | | | | | | | +--------+---------+ + + + documented as of this encounter Visit Diagnoses Not on filedocumented in this encounter"
--- OUTSIDE RECORDS SUMMARY | ~2019-05-17 | XMS | Encounter Summary ---
Demographics + + + | Address | [address] | | | [place] [address] | + + + | Home Phone [...] Team Providers + +------+ + | Care Electronics Technician Name | Role | Phone | [...] hip | | 2019 | Visit | [facility] [address] | [place] [address] | joint (Primary Dx) | | | | Ave Mailcode: [facility] | [address] | | | | | [facility] | [place], [place] | | | | | and Healing, | [address] | | | | | Building | [phone] | | | | | Floor [place], [place] | | | | | | [address] | | | | | | [phone] | | | +--------+---------+ + + + [...] Hospital | | | | | | [facility] | | | | | | [place], [place] | | | | | | [address] | | | | | | [phone] | | | | | | | [...]
--- OUTSIDE RECORDS SUMMARY | ~2019-05-17 | XMS | Encounter Summary ---
Demographics + + + | Address | [address] | | | [place] [address] | + + + | Home Phone [...] Team Providers + +------+ + | Care Vehicle Inspector Name | Role | Phone | [...] | | | | | [address] [place], | | | | | | [place] [address] | | | +--------+ + + + [...] 2018 | Visit | Malignancy | [address] [address] [address] [facility] | | | | | | [address] | | | | | | [place], [place] | | | | | | [address] | | | | | | [phone] | | | | | | | | +--------+---------+ + + + documented as of this encounter Visit Diagnoses Not on filedocumented in this encounter"
--- OUTSIDE RECORDS SUMMARY | ~2019-05-17 | XMS | Encounter Summary ---
Demographics + + + | Address | [address] | | | [place] [address] | + + + | Home Phone [...] Team Providers + +------+ + | Care Assessment Counselor Name | Role | Phone | [...] 10/31/ | Telephone | Center for | Yrai Garcia MD | Medication | | 2016 | | Hematologic | [address] | management | | | | [facility] at [facility] | [address] | (Tacrolimus) | | | | [address] | [place], [place] | | | | | [address] Mailcode: | [address] | | | | | [facility] | [phone] | | | | | [place], | | | | | | [place] [address] | | | | | | [phone] | | | +--------+ + + + [...] | | | | | | [place] | | | | | | [address] | | | | | | [phone] | | | | | | | | +--------+---------+ + + + documented as of this encounter Visit Diagnoses Not on filedocumented in this encounter"
--- OUTSIDE RECORDS SUMMARY | ~2019-05-17 | XMS | Encounter Summary ---
Demographics + + + | Address | [address] | | | [place] [address] | + + + | Home Phone [...] Team Providers + +------+ + | Care Eligibility Examiner Name | Role | Phone | + +------+ + | Pending Pcp Addition | PCP | Unavailable | + +------+ + Reason for Visit + + + | Reason | Comments | + + + | Lab Draw | PIV | + + + Benefits Check (Routine) [...] | | | | | | [place], | | | | | | | [place] | | | | | | | [address] | | | | | | | Phone: | | | | | | | [phone] | | | | | | | Fax: | | | | | | | [phone] | +--------+--------+ + + + + Encounter Details +--------+ + + + + | Date | Type | Department | Care Team | Description | +--------+ + + + + | 03/30/ | Clinical | Center for | | Lab Draw (PIV) | | 2016 | Support | Hematologic | | | | | Staff | [facility] | | | | | | [address] | | | | | | [address] Mailcode: | | | | | | [id number] [place] | | | | | | [place], | | | | | | [place] [address] | | | | | | [phone] | | | +--------+ + + + [...] documented as of this encounter Progress Notes Silvia Randall RN - 03/30/2016 9:20 AM PDTName: Khurram Kelly Date: 03/30/2016 Allergies: Khurram is allergic to chlorhexidine towelette. Anderson here for lab draw. VSS. Pt alone in clinic today. Pt reported that he has been doin g well overall. Appetite low the last few days due to indigestion. Explained he ran out of P rilosec - planning to pick it up today which he states will resolve his poor appetite. Fluid intake good. Pt has OV with Doctor Jose today. Nursing Assessment: Fever: no; Diarrhea:No Constipation: No SOB / Cough: no; Rash: no Edema: no; Mucositis: no; Urinary: no; Neuropathy: no; S/S Bleeding: no; Nausea and/or Vomiting: Pt reported mild, intermittent nausea that resolves without interve ntion. Fatigue: Pt states energy level has been good. Staying active with bowling and golf. Pain: Pt denies PIV placed with good blood return. CBC and CMP drawn and reviewed. Remaining labs drawn and sent to core lab. No replacements needed today. PIV flushed and d/c'd intact post OV. Pt Al ert & Oriented x3 and discharged ambulatory in stable condition. Refer to MAR and Onc Lines and [...] Rd | | | | | | [place], [place] | | | | | | [address] | | | | | | [phone] | | | | | | | | +--------+---------+ + + + documented as of this encounter Procedures + +--------+ + + + | Procedure Name | Priori | Date/Time | Associated Diagnosis | Comments | | | ty | | | | + +--------+ + + + | BMP + MAG, POC CHM | Routin | 03/30/2016 | S/P allogeneic | Results for this | | | e | 10:16 AM | bone marrow | procedure are in the | | | | PDT | transplant ([facility]) | results section. 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[facility])- primary | | | | | | induction failure | | + +--------+ + + + | CMV PCR | Routin | 03/30/2016 | S/P allogeneic | Results for this | | QUANTITATION, PLASMA | e | 9:30 AM | bone marrow | procedure are in the | | | | PDT | transplant ([facility]) | results section. 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[facility])- primary | | | | | | induction failure | | + +--------+ + + + | LIVER SET | Urgent | 03/30/2016 | S/P allogeneic | Results for this | | (AST,ALT,BILI | | 9:30 AM | bone marrow | [...] + | TREATMENT PARAMETERS | Routin | 03/30/2016 | 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), 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 | | | | | | induction failure | | + +--------+ + + + | TREATMENT PARAMETERS | Routin | 03/30/2016 | 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), 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 | | | | | | induction failure | | + +--------+ + + + | TREATMENT PARAMETERS | Routin | 03/30/2016 | 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), 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 | | | | | | induction failure | | + +--------+ + + + | TREATMENT PARAMETERS | Routin | 03/30/2016 | 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), 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 | | | | | | induction failure | | + +--------+ + + + | TREATMENT PARAMETERS | Routin | 03/30/2016 | 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), 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 | | | | | | induction failure | | + +--------+ + + + | NURSING | Routin | 03/30/2016 | Acute myeloid | | | COMMUNICATION #3 -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), M4 | | | [facility] | | PDT | (HCC)- primary | | | | | | induction failure | | + +--------+ + + + | NURSING | Routin | 03/30/2016 | Acute myeloid | | | COMMUNICATION #2 -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), M4 | | | [facility] | | PDT | ([facility])- primary | | | | | | induction failure | | + +--------+ + + + | NURSING | Routin | 03/30/2016 | Acute myeloid | | | COMMUNICATION #1 -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), M4 | | | [facility] | | PDT | (HCC)- primary | | | | | | induction failure | | + +--------+ + + + | TREATMENT PARAMETERS | Routin | 03/30/2016 | Acute myeloid | | | #1 - [facility]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), 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 | | | | | | induction failure | | + +--------+ + + + | TREATMENT PARAMETERS | Routin | 03/30/2016 | Acute myeloid | | | #1 - [facility]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), M4 | | | | | PDT | ([facility])- primary | | | | | | induction failure | | + +--------+ + + + documented in this encounter Results BMP + MAG, POC CHM (03/30/2016 10:16 AM PDT) + +---------+ + + + [...] + + + | LDH, POC | 261 (H) | 0 - 206 U/L | [...] [facility] | [address] | [place], [place] | | | [address] | [facility] | [address] | | | TESTS | | | | + + + + + CBC+DIFF,POC (03/30/2016 10:11 AM PDT) + + + + + + | Component | Value | Ref Range | Performed | Pathologist | | | | | At | Signature | + + + + + + | WBC POC | 6.1 | 4.4 - 11.0 | [facility] - | | | | | 10*3/uL | [place] | | | | | | [address] | | | | | | OF CARE | | | | | | TESTS | | + + + + + + | RBC POC | 3.94 (L) | 4.50 - 6.00 | [facility] - | | | | | 10*6/uL [...] + + + | MCV POC | 103.3 (H) | 80.0 - 96.0 fL | [facility] - | | | | | | [facility] | | | | | | [facility]IE CARTER | | | | | | OF CARE | | | | | | TESTS | | + + + + + + | MCH POC | 35.0 (H) | 28.5 - 32.3 pg | [...] + + | RDW SD, POC | 49.1 (H) | 35.1 - 46.3 fL | [facility] - | | | | | | [place] | | | | | | [facility]UTHIE CARTER | | | | | | OF CARE | | | | | | TESTS | | + + + + + + | PLT POC | 150 | 150 - 400 | [facility] - [...] + + + | LYMPH% POC | 21.6 | 18 - 42 % | [facility] - | | | | | | [place] | | | | | | [facility] | | | | | | OF CARE | | | | | | TESTS | | + + + + + + | MONO %, POC | 8.9 | 3.5 - 9.0 % | [facility] - | | | | | | [facility] | | | | | | [facility] | | | | | | OF CARE | | | | | | TESTS | | + + + + + + | EOS %, POC | 3.6 (H) | 1.0 - 3.0 % | [...] [facility] | [address] | [place], [place] | | | [facility]ARE | [address] | [address] | | | TESTS | | | | + + + + + LIVER SET (AST,ALT,BILI TOTAL,BILI DIRECT,ALK PHOS,ALB,PROT TOTAL) (03/30/2016 9:30 AM PDT ) + +---------+ + + [...] + + + | ALK PHOS | 86 | 53 - 128 U/L | [facility] [...] | + + + + + | [facility] | [address] | [place] [address] | | | SERVICES, CORE | [address] | | | + + + + + CMV PCR QUANTITATION, PLASMA (03/30/2016 9:30 AM PDT) + + + + + [...] 2 fold may not reflect true | [facility] | | biological changes and [...] | laboratory under [facility], [facility], and the [facility]. | | + + + + + + + + | Performing | Address | City/State/Zipcode | Phone Number | | Organization | | | | + + + + + | [facility] | [address] | [place] [address] | | | DIAGNOSTIC | [address] [...]
--- OUTSIDE RECORDS SUMMARY | ~2019-05-17 | XMS | Encounter Summary ---
Demographics + + + | Address | [address] | | | [place] [address] | + + + | Home Phone [...] Team Providers + +------+ + | Care Investigation Division Sergeant Name | Role | Phone | + +------+ + | Zayda Hinton | PCP | | + +------+ + Encounter Details +--------+--------+ + + + | Date | Type | Department | Care Team | Description | +--------+--------+ + + + | 11/12/ | Refill | [facility] | Sabrina Baez, | | | 2019 | | [place] [facility] at | [address] | | | | | [address] | [address] | | | | | [address] | [place], [place] | | | | | Mailcode: [place] | [address] | | | | | [facility] [place] | [phone] | | | | | [address] | | | | | | [phone] | | | +--------+--------+ + + + [...] | 2019 | Visit | Malignancy | [address] [facility] | | | | | | [address] | | | | | | [place], [place] | | | | | | [address] | | | | | | [phone] | | | | | | | | +--------+---------+ + + + documented as of this encounter Visit Diagnoses Not on filedocumented in this encounter"
--- OUTSIDE RECORDS SUMMARY | ~2019-05-17 | XMS | Encounter Summary ---
Demographics + + + | Address | [address] | | | [place] [address] | + + + | Home Phone [...] Team Providers + +------+ + | Care High Frequency Mill Operator Name | Role | Phone [...] | ic leukemia, | [address] [place] | [facility] | | | | | not having | [address] | [address] | | | | | achieved | [place], [place] | Rd Mailcode: | | | | | remission | [address] | [id number] | | | | | Procedures | Phone: | [place] | | | | | [place] | [phone] | Pavilion | | | | | AZACITIDINE | Fax: | [place], [place] | | | | | INJECTION, 1 | [phone] | [address] | | | | | [place] | | Phone: | | | | | CHM,IV | | [phone] | | | | | INFSN,1 HR | | Fax: | | | | | [place] CHM,IV | | [phone] | | | | | INFSN,ADDL | [...] | | | | | | [facility] [place] | | | | | | [place], | | | | | | [place] [address] | | | | | | [phone] | | | +--------+ + + + [...] Rd | | | | | | [place], [place] | | | | | | [address] | | | | | | [phone] | | | | | | | [...] | | | | | PDT | ([facility])- primary | | | | | | induction failure | | + +--------+ + + + | NURSING | Routin | 11/30/2015 | Acute myeloid | | | COMMUNICATION #3 - | e | 7:45 AM | leukemia (AML), M4 | | | [facility] | | PDT | ([facility])- primary | | | | | | induction failure | | + +--------+ + + + | NURSING | Routin | 11/30/2015 | Acute myeloid | | | COMMUNICATION #2 - | e | 7:45 AM | leukemia (AML), M4 | | | [facility] | | PDT | ([facility])- primary | | | | | | induction failure | | + +--------+ + + + | NURSING | Routin | 11/30/2015 | Acute myeloid | | | COMMUNICATION #1 - | e | 7:45 AM | leukemia (AML), M4 | | | [facility] | | PDT | ([facility])- primary | | | | | | induction failure | | + +--------+ + + + | TREATMENT PARAMETERS | Routin | 11/30/2015 | Acute myeloid | | | #1 - [place] | e | 7:45 AM | leukemia (AML), M4 | | | | | PDT | ([facility])- primary | | | | | | induction failure | | + +--------+ + + + | TREATMENT PARAMETERS | Routin | 11/30/2015 | Acute myeloid | | | #1 - [facility] | e | 7:45 AM | leukemia (AML), M4 | | | | | PDT | ([facility])- primary | | | | | [...] | + + + + + | [facility] | [address] | [place] [address] | | | SERVICES, CORE | [address] [...] [facility] | [address] | [place] [address] | | | SERVICES, SPECIAL | [address] [...]
--- OUTSIDE RECORDS SUMMARY | ~2019-05-17 | XMS | Encounter Summary ---
Demographics + + + | Address | [address] | | | [place] [address] | + + + | Home Phone [...] Team Providers + +------+ + | Care Greenbelt Name | Role | Phone | + [...] | | | | | | | [address] | | | | | | | [address] | | | | | | | [place], | | | | | | | [place] | | | | | | | [address] | | | | | | | Phone: | | | | | | | [phone] | | | | | | | Fax: | | | | | | | [phone] | +--------+--------+ + + + + Encounter Details +--------+---------+ + + + | Date | Type | Department | Care Team | Description | +--------+---------+ + + + | 12/26/ | Office | Center for | Yari Garcia MD | Acute pain of both | | 2016 | Visit | Hematologic | [address] | knees (Primary Dx) | | | | Malignancies at | [address] | | | | | [address] | [place], [place] | | | | | [address] | [address] | | | | | [address] Mailcode: | [phone] | | | | | [facility] | | | | | | [place], | | | | | | [place] [address] | | | | | | [phone] | | | +--------+---------+ + + + [...] + + + | Blood Pressure | 150/92 | 12/27/2015 1:37 PM | | | | | PDT | | + + + + + | Pulse | 90 | 12/27/2015 1:37 PM | | | | | PDT | | + + + + + | Temperature | 36.9 C (98.5 F) | 12/27/2015 1:37 PM | | | | | PDT | | + + + + + | Respiratory Rate | 18 | 12/27/2015 1:37 PM | | | | | PDT | | + + + + + | Oxygen Saturation | 98% | 12/27/2015 1:37 PM | | | | | PDT | | + + + + + | Inhaled Oxygen | - | - | | | Concentration | | | | + + + + + | Weight | 85.6 kg (188 lb 11.4 | 12/27/2015 1:37 PM | | | | oz) | PDT | | + + + + + | Height | - | - | | + + + + + | Body Mass Index | 24.39 | 08/18/2015 4:35 PM | | | | | PST | | + + + + + documented in this encounter Patient Instructions Patient Instructions Yari Garcia MD - 12/27/2015 1:59 PM PDTJeremiah- Get xrays of your knees today. Increase prednisone dose to 20 mg. We will check blood work today to look for GVHD involving the joints. I will send a prescription for oxycodone to the pharmacy. Rest, Ice, Compression, Elevation. Take over the counter claritin and see if it helps. CALL US WHEN YOU ARE HAVING PAIN or OTHER NEW ISSUES. We are here to help. If you have any questions, or if you need prescription refills, or are experiencing any sym ptoms or side effects please call our silver designer at [phone] documented in this encounter Progress Notes Yari Garcia MD - 12/27/2015 1:45 PM PDT 123 days post transplant 12/27/15 [facility] Primary CHM MD: Yari Garcia MD Primary Oncologist: Yari Garcia MD Diagnosis: AMML, primary refractory Transplant Date: 08/27/15 Donor: MM U[facility] (DPB1 permissive antigen mismatch, male, [id number]) Identifying Data: Khurram Kelly is a 25 [...] his L ankle. He was evaluated at [facility] on 06/[address] angiogram negative [...] CD34, variable CD56, variable CD117, and dim [id number] mickey; promonocyte immunophenotype (70% by flow): CD11b, [...] durin g taper. He is currently day +123 s/p transplant, day 1, c3 of azacitidine [facility] Interim History: Khurram returns to clinic today and is having bilateral severe knee pain. He was feeling well last week and then on Sunday developed bilateral severe knee pain - to the point that he couldn't walk. It was a few hours after he ran a short distance - he n oted pain at the time of running in his knees and ankles, but it stopped when he stopped run jayna. Then several hours later, he had sudden onset of the pain - also noted new pain in hi s right elbow. The pain was quite severe - with minimal response to oxycodone - and left Khurram in tears . They cancelled a trip home to see family because of it. Also tried tylenol, ice, rest, a ll with minimal response. No fevers/chills, has not noted any swelling. May have a little new hip pain too - not nearly as severe as knees. No other new symptoms. Gut/skin/stable. Review of Systems Constitutional: Negative for fever, chills, weight loss and malaise/fatigue. HENT: Negative for congestion. Eyes: Negative for blurred vision. Respiratory: Negative for cough and shortness of breath. Cardiovascular: Negative for chest pain and leg swelling. Gastrointestinal: Negative for heartburn, nausea, vomiting, abdominal pain, diarrhea and co nstipation. Genitourinary: Negative for dysuria. Musculoskeletal: Positive for joint pain. Negative for myalgias and falls. Skin: [...] daily. predniSONE 10 mg oral tablet Take 2 tablets by mouth once daily. senna-docusate 8.6-50 mg oral tablet Take 1 tablet by mouth twice daily as needed. tacrolimus 0.5 mg oral capsule Take 0.5 mg (one capsule) by mouth twice daily No current facility-administered medications for this visit. Allergies Allergen Reactions Chlorhexidine Towelette Rash PAVAN cloths - ok to use Chloraprep for dresssing change per pt. Filed Vitals: 12/27/2015 1:37 PM Weight: 85.6 kg (188 lb 11.4 oz) BP: 150/92 Pulse: 90 Temp: 36.9 C (98.5 F) TempSrc: Oral Resp: 18 SpO2: 98% PainSc: 07 - Severe to Very Severe PainLoc: Knee (Bilateral) BMI: 24.4 kg/(m^2) Physical Exam Constitutional: No distress. Cushingoid [...] Musculoskeletal: Normal range of motion. He exhibits tenderness. He exhibits no edema. Tender to pressure above knees, no erythema/warmth. Waldo joint line. Lymphadenopathy: He has no cervical adenopathy. Neurological: He is alert. Skin: Skin is warm and dry. No rash noted. He is not diaphoretic. No erythema. No pallor. Psychiatric: Mood, memory, affect and judgment normal. CVC: Trifusion intact to R ant chest wall without erythema, induration Clinical Vamp Creaser on 12/27/2015 Component Date Value WBC POC 12/27/2015 8.8 RBC POC 12/27/2015 3.93* HGB POC 12/27/2015 14.0 HCT POC 12/27/2015 40.4* MCV POC 12/27/2015 102.8* MCH POC 12/27/2015 35.6* MCHC POC 12/27/2015 34.7 RDW SD, POC 12/27/2015 54.7* PLT POC 12/27/2015 90* MPV POC 12/27/2015 8.7* NEUTROPHIL% POC 12/27/2015 69.7 LYMPH% POC 12/27/2015 21.3 MONO %, POC 12/27/2015 8.1 EOS %, POC 12/27/2015 0.6* BASO %, POC 12/27/2015 0.3 NEUTROPHIL# POC 12/27/2015 6.1 LYMPH# POC 12/27/2015 1.9 MONO #, POC 12/27/2015 0.7 EOS #, POC 12/27/2015 0.0 BASO #, POC 12/27/2015 0.0 CBC COMMENT, POC 12/27/2015 Imm Gran. Lft Shift. CMV DNA QUANTITATION BY * 12/27/2015 Undetected ALBUMIN, PLASMA (LAB) 12/27/2015 3.9 BILIRUBIN TOTAL 12/27/2015 0.3 BILIRUBIN DIRECT 12/27/2015 <0.1 ALK PHOS 12/27/2015 77 AST(SGOT) 12/27/2015 72* ALT (SGPT) 12/27/2015 206* TOTAL PROTEIN, PLASMA (L* 12/27/2015 7.2 AST CMNT 12/27/2015 No Hemo BILI T CMNT 12/27/2015 No Hemo BILI D CMNT 12/27/2015 No Hemo SODIUM, POC 12/27/2015 140 POTASSIUM, POC 12/27/2015 3.2* TOTAL CO2, POC 12/27/2015 28 CHLORIDE, POC 12/27/2015 100 GLUCOSE, POC 12/27/2015 132* CALCIUM TOTAL, POC 12/27/2015 9.9 BUN, POC 12/27/2015 13 CREATININE, POC 12/27/2015 0.6* LDH, POC 12/27/2015 372* MAGNESIUM, POC 12/27/2015 2.0 CK 12/27/2015 39* ALDOLASE SERUM 12/27/2015 11.9* Assessment/Plan: 1. Hematology: Khurram Kelly is currently day +123 s/p tBuCy-conditioned unrel ated donor PBSC transplant [...] maintenance azacitidine on 11/01/15, currently c3, day 1. Peripheral blood counts recovering post-chemo; no blood products are required today. 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 --> check CK/aldolase --> increase prednisone to 20 mg daily until f/u visit this --> continue tacrolimus 0.5 mg bid --> [...] +180, then q oweek through day +270 4. Fluid, Electrolyte and Nutrition: Intermittent nausea [...] ? Related to short burst of running? --> bilateral knee Xrays today --> refilled oxycodone --> continue ice, rest, elevation --> CK/aldolase ordered --> rapid taper of prednisone if improving 6. Follow up --> cycle #3 aza today, 5 days in a row --> RTC for reassessment of knees/prednisone dosing --> of note, pt and planning to travel to [place] 01/05-01/10/16 Yari Garcia MD, MS Hadoop Java Developergate clerk [facility] [address] [place] [address] documented in this enc ounter Plan of [...] Rd | | | | | | [place], [place] | | | | | | [address] | | | | | | [phone] | | | | | | | | +--------+---------+ + + + documented as of this encounter Results X-RAY KNEE 2 VIEWS [...] | | | + +---------+ + + ALDOLASE, SERUM (12/27/2015 2:15 PM PDT) + + + + + + | Component | Value | Ref Range | Performed | Pathologist | | | | | At | Signature | + + + + + + | ALDOLASE | 11.9 (H)Comment: | 1.5 - 8.1 U/L | [facility] | | | SERUM | REFERENCE INTERVAL: | | REG UNIV | | | | Aldolase Access complete | | PTH - INTFC | | | | set of age- and/or | | | | | | gender-specific | | | | | | reference intervals for | | | | | | this test in the [employer] | | | | | | Laboratory Test | | | | | | Directory | | | | | | (Jigsaw).Performed | | | | | | by [facility],[address] | | | | | | [address], [facility],[place] | | | | | | [address] | | | | | | [phone].[employer]. | | | | | | lifepoint [...] [facility] | [address] | [place], [place] | | | UNIV PTH - INTFC | | [address] | | + + + + + [...] YESSICA LOZA | [address] | [place] [address] | | | SERVICES, CORE | [address] | | | + + + + + documented in this encounter Visit Diagnoses + + | Diagnosis | + + | Acute pain of both knees - Primary | + + documented in this encounter"
--- OUTSIDE RECORDS SUMMARY | ~2019-05-17 | XMS | Encounter Summary ---
Demographics + + + | Address | [address] | | | [place] [address] | + + + | Home Phone [...] Team Providers + +------+ + | Care Shank Cutter Name | Role | Phone | + +------+ + | Zayda Hinton | PCP | | + +------+ + Encounter Details +--------+ + + + + | Date | Type | Department | Care Team | Description | +--------+ + + + + | 04/28/ | Pharmacy | Specialty Pharmacy | | | | 2015 | Visit | Services [address] | | | | | | [address] | | | | | | [place], [place] | | | | | | [address] | | | | | | [phone] | | | +--------+ + + + [...] Rd | | | | | | [place], [place] | | | | | | [address] | | | | | | [phone] | | | | | | | | +--------+---------+ + + + documented as of this encounter Visit Diagnoses Not on filedocumented in this encounter"
--- OUTSIDE RECORDS SUMMARY | ~2019-05-17 | XMS | Encounter Summary ---
Demographics + + + | Address | [address] | | | [place] [address] | + + + | Home Phone [...] Team Providers + +------+ + | Care Last Remodeler Repairer Name | Role | Phone | + +------+ + | Zayda Hinton | PCP | | + +------+ + Encounter Details +--------+ + + + + | Date | Type | Department | Care Team | Description | +--------+ + + + + | 12/23/ | Pharmacy | Specialty Pharmacy | | | | 2015 | Visit | Services [address] | | | | | | [address] | | | | | | [place], [place] | | | | | | [address] | | | | | | [phone] | | | +--------+ + + + [...] 2019 | Visit | Malignancy | [address] | | | | | | [address] | | | | | | [place], [place] | | | | | | [address] | | | | | | [phone] | | | | | | | | +--------+---------+ + + + documented as of this encounter Visit Diagnoses Not on filedocumented in this encounter"
--- OUTSIDE RECORDS SUMMARY | ~2019-05-17 | XMS | Encounter Summary ---
Demographics + + + | Address | [address] | | | [place] [address] | + + + | Home Phone [...] Team Providers + +------+ + | Care Computer Teacher Name | Role | Phone | [...] | | | [place] | | [address] | | | | | CHM,IV | | Phone: | | | | | INFSN,1 HR | | [phone] | | | | | [place] CHM,IV | | Fax: | | | | | INFSN,ADDL | | [phone] | | | | | HR | [...] | | | | | | [facility] [place] | | | | | | [facility], | | | | | | [place] [address] | | | | | | [phone] | | | +--------+ + + + [...] [address] | | | | | | [place], [place] | | | | | | [address] | | | | | | [phone] | | | | | | | [...] the | | | | PST | ([facility]) | results section. | + +--------+ + + + | ANTIBODY SCREEN | Routin | 07/27/2015 | Acute myeloid | Results for this | | | e | 3:42 PM | leukemia (AML), M4 | procedure are in the | | | | PST | ([facility]) | results section. | + +--------+ + + + | TYPE AND SCREEN | Routin | 07/27/2015 | Acute myeloid | Results for this | | | e | 3:42 PM | leukemia (AML), M4 | procedure are in the | | | | PST | ([facility]) | results section. | + +--------+ + + + | ABO & RH TYPE | Routin | 07/27/2015 | Acute myeloid | Results for this | | | e | 3:42 PM | leukemia (AML), M4 | procedure are in the | | | | PST | ([facility]) | results section. | + +--------+ + + + | LDH TOTAL, PLASMA | Routin | 07/27/2015 | Acute myeloid | Results for this | | | e | 3:42 PM | leukemia (AML), M4 | procedure are in the | | | | PST | ([facility]) | results section. | + +--------+ + + + | TREATMENT PARAMETERS | Routin | 07/27/2015 | Acute myeloid | | | #2 - [facility] | e | 3:40 PM | leukemia (AML), M4 | | | | | PST | ([facility]) | | + +--------+ + + + | TREATMENT PARAMETERS | Routin | 07/27/2015 | Acute myeloid | | | #2 - [place] | e | 3:40 PM | leukemia (AML), M4 | | | | | PST | ([facility]) | | + +--------+ + [...] | | [place] | | PST | ([facility]) | | + +--------+ + + + | NURSING | Routin | 07/27/2015 | Acute myeloid | | | COMMUNICATION #2 - | e | 3:40 PM | leukemia (AML), M4 | | | [place] | | PST | ([facility]) | | + +--------+ + + + | NURSING | Routin | 07/27/2015 | Acute myeloid | | | COMMUNICATION #1 - | e | 3:40 PM | leukemia (AML), M4 | | | [place] | | PST | ([facility]) | | + +--------+ + + + | TREATMENT PARAMETERS | Routin | 07/27/2015 | Acute myeloid | | | #1 - [place] | e | 3:40 PM | leukemia (AML), M4 | | | | | PST | ([facility]) | | + +--------+ + [...] + + + + | PRODUCT | [id number] | | [facility] | | | UNIT [...] + + + + | EXPIRATION | [id number] | | [facility] | | | DATE [...] + + + + | BLOOD | [id number] | | [facility] | | | PRODUCT [...] [facility] | [address] | [place] [address] | | | PATHOLOGY | [address] [...] + + + + | PRODUCT | [id number] | | [facility] | | | UNIT [...] + + + + | EXPIRATION | [id number] | | [facility] | | | DATE [...] + + + + | BLOOD | [id number] | | [facility] | | | PRODUCT [...] + + + + | [facility] | [address] | [place] [address] | | | PATHOLOGY | [address] [...] HOSPITAL LABORATORY | [address] | [place] [address] | | | SERVICES, CORE | [address] | | | + + + + + CMP METABOL,POC (07/27/2015 3:56 PM PST) + +---------+ + + + | Component | Value | Ref Range | Performed | Pathologist | | | | | At | Signature | + +---------+ + + + | SODIUM, POC | 139 | 134 - 143 | [facility] - | | | | | mmol/L [...] [facility] | [address] | [place], [place] | | | RUTHIE CARTER OF CARE | [address] | [address] | | | TESTS | | | [...] [facility] | [address] | [place] [address] | | | SERVICES, | [address] [...] | + + + + + | [facility] | [address] | [place] [address] | | | SERVICES, | [address] [...] [facility] | [address] | [place] [address] | | | SERVICES, CORE | [address] [...]
--- OUTSIDE RECORDS SUMMARY | ~2019-05-17 | XMS | Encounter Summary ---
Demographics + + + | Address | [address] | | | [place] [address] | + + + | Home Phone [...] Providers + +------+ + | Care Supervisor Plastics Name | Role | Phone | + [...] | | | | | achieved | [place], [place] | [facility] | | | | | remission | [address] | [facility] | | | | | | Phone: | Pavilion | | | | | Procedures | [phone] | [place], [place] | | | | | Post BMT | Fax: | [address] | | | | | Auth to | [phone] | Phone: | | | | | included | | [phone] | | | | | facility, | | Fax: | | | | | diagnostics, | | [phone] | | | | | office | [...] Ondansetron); Biopsy | | | | [facility] | | (Bone Marrow) | | | | [place], | | | | | | [place] [address] | | | | | | [phone] | | | +--------+ + + + [...] d to check out at the front office manager prior to leaving the clinic. Patient d/c d ambulatory in stable condition. Next Appointment in [facility] is on 09/11/16 at 8:30 am with [...] 2018 | Visit | Malignancy | [address] [facility] | | | | | | [address] | | | | | | [place], [place] | | | | | | [address] | | | | | | [phone] | | | | | | | [...] | | PST | transplant ([facility]) | results section. | + +--------+ + + + | LYMPHOCYTE | Urgent | 08/31/2016 | S/P allogeneic | | | ACTIVATION(LYMPH | | 9:35 AM | bone marrow | | | RECONSTITUTION/ACTIV | | PST | transplant ([facility]) | | | ATE)BLOOD | | | | | + +--------+ + + + | TSH W/REFLEX TO FREE | Urgent | 08/31/2016 | S/P allogeneic | Results for this | | T4(IF ABNORMAL) | | 9:35 AM | bone marrow | procedure are in the | | | | PST | transplant ([facility]) | results section. | + +--------+ + + + | CBC AND AUTO DIFF | Urgent | 08/31/2016 | S/P allogeneic | Results for this | | | | 9:35 AM | bone marrow | procedure are in the | | | | PST | transplant ([facility]) | results section. | + +--------+ + + + | LYMPHOCYTE | Urgent | 08/31/2016 | S/P allogeneic | Results for this | | ACTIVATION(LYMPH | | 9:35 AM | bone marrow | procedure are in the | | RECONSTITUTION/ACTIV | | PST | transplant ([facility]) | results section. | | ATE),BLOOD | | | | | + +--------+ + + + | CBC, WITH | Urgent | 08/31/2016 | S/P allogeneic | Results for this | | DIFFERENTIAL | | 9:35 AM | bone marrow | procedure are in the | | | | PST | transplant ([facility]) | results section. | + +--------+ + + + | VITAMIN D, | Urgent | 08/31/2016 | S/P allogeneic | Results for this | | 25-HYDROXY, SERUM | | 9:35 AM | bone marrow | procedure are in the | | | | PST | transplant ([facility]) | results section. | + +--------+ + + + | IGM, SERUM | Urgent | 08/31/2016 | S/P allogeneic | Results for this | | | | 9:35 AM | bone marrow | procedure are in the | | | | PST | transplant ([facility]) | results section. | + +--------+ + + + | IGG, SERUM | Urgent | 08/31/2016 | S/P allogeneic | Results for this | | | | 9:35 AM | bone marrow | procedure are in the | | | | PST | transplant ([facility]) | results section. | + +--------+ + + + | IGA, SERUM | Urgent | 08/31/2016 | S/P allogeneic | Results for this | | | | 9:35 AM | bone marrow | procedure are in the | | | | PST | transplant ([facility]) | results section. | + +--------+ + + + | FERRITIN | Urgent | 08/31/2016 | S/P allogeneic | Results for this | | | | 9:35 AM | bone marrow | procedure are in the | | | | PST | transplant ([facility]) | results section. | + +--------+ + + + | TESTOSTERONE, SERUM | Urgent | 08/31/2016 | S/P allogeneic | Results for this | | | | 9:35 AM | bone marrow | procedure are in the | | | | PST | transplant ([facility]) | results section. | + +--------+ + + + | LIPID SET (TRIG, T | Urgent | 08/31/2016 | S/P allogeneic | Results for this | | CHOL, HDL, CALC LDL) | | 9:35 AM | bone marrow | procedure are in the | | | | PST | transplant ([facility]) | results section. | + +--------+ + + + | PROTEIN | Urgent | 08/31/2016 | S/P allogeneic | Results for this | | ELECTROPHORESIS, | | 9:35 AM | bone marrow | procedure are in the | | SERUM, WITH REFLEX | | PST | transplant ([facility]) | results section. | | TO IMMUNOFIXATION | | | | | + +--------+ + + + | MAGNESIUM, PLASMA | Urgent | 08/31/2016 | S/P allogeneic | Results for this | | | | 9:35 AM | bone marrow | procedure are in the | | | | PST | transplant ([facility]) | results [...] [facility] | [address] | [place], [place] | | | [facility] | [facility] | [address] | | | TESTS | | | [...] [facility] | [address] | [place] [address] | | | SERVICES, SPECIAL | [address] [...] | + + + + + | [facility] | [address] | [place] [address] | | | KOLE, INDRA | [address] | | | + + + + + IGG, SERUM (08/31/2016 9:35 AM PST) + +---------+ + + + | Component | Value | Ref Range | Performed | Pathologist | | | | | At | Signature | + +---------+ + + + | IGG SERUM | 647 (L) | 700 - 1600 | [facility] - | | | | | mg/dL [...] + | [facility] - | [address] | [place] [address] | | | [place] | | | [...] + | [facility] - | [address] | [place] [address] | | | [place] | | | [...] + | [facility] - | [address] | [place] [address] | | | [place] | | | [...] + | [facility] - | [address] | [place] [address] | | | [facility] | | | | + + [...] | + + + + + | [facility] | [address] | [place] [address] | | | SERVICES, CORE | [address] [...] | + + + + + | [facility] | [address] | [place] [address] | | | SERVICES, CORE | [address] [...] | + + + + + | [facility] | [address] | [place] [address] | | | SERVICES, CORE | [address] [...] | | | this test in the [employer] [facility] | | | | | | Laboratory Test | | | | | | Directory | | | | | | ([employer]).Performed | | | | | | by [employer],[address] | | | | | | [address], [facility] | | | | | | [address] | | | | | | [phone][employer]. | | | | | | [facility], Abhishek Drew MD, | | | | [...] [facility] | [address] | [place], [place] | | | UNIV PTH - INT | | [address] | | + + + + + [...] [facility] | [address] | [place] [address] | | | INDRA SHARIF | [address] [...] + + + + + | [facility] | [address] | [place] [address] | | | SERVICES, INDRA | [address] [...] 10:11 | | | | | dose, Lupe 08/31/16 at 1015 | | AM PST | | | | + +---------+ +------+---+---+ + +---+ | | | + +---+ | ondansetron (ZOFRAN) injection | | | 1 dose, Starting Lupe 08/31/16 at | | | 1008, Until Lupe 08/31/16 at 1011 | | + +---+ | | | + +---+ documented in this encounter"
--- OUTSIDE RECORDS SUMMARY | ~2019-05-17 | XMS | Encounter Summary ---
Demographics + + + | Address | [address] | | | [place] [address] | + + + | Home Phone [...] Team Providers + +------+ + | Care Curbstone Setter Name | Role | Phone | [...] | | | | Christian Barry | [place], [place] | | | | | [address] | [address] | | | | | Debi Burger Mailcode: | [phone] | | | | | [facility] | | | | | | [place], | | | | | | [place] [address] | | | | | | [phone] | | | +--------+ + + + [...] 2019 | Visit | Malignancy | [address] [facility] | | | | | | [address] | | | | | | [place], [place] | | | | | | [address] | | | | | | [phone] | | | | | | | | +--------+---------+ + + + documented as of this encounter Visit Diagnoses Not on filedocumented in this encounter"
--- OUTSIDE RECORDS SUMMARY | ~2019-05-17 | XMS | Encounter Summary ---
Demographics + + + | Address | [address] | | | [place] [address] | + + + | Home Phone [...] Team Providers + +------+ + | Care Otr Owner Operator Truck Driver Name | Role | Phone | + +------+ + | Pending Pcp Addition | PCP | Unavailable | + +------+ + Reason for Visit + + + | Reason | Comments | + + + | Lab Draw | neostar | + + + | Dressing change | neostar | + + + Benefits [...] | | | | | | [place], | | | | | | | [place] | | | | | | | [address] | | | | | | | Phone: | | | | | | | [phone] | | | | | | | Fax: | | | | | | | [phone] | +--------+--------+ + + + + Encounter Details +--------+ + + + + | Date | Type | Department | Care Team | Description | +--------+ + + + + | 12/06/ | Clinical | Center for | | Lab Draw (neostar); | | 2015 | Support | Hematologic | | Dressing change | | | Staff | [facility] at [facility] | | (neostar) | | | | [address] | | | | | | [place] Mailcode: | | | | | | [facility] [place] | | | | | | [place], | | | | | | [place] [address] | | | | | | [phone] | | | +--------+ + + + [...] encounter Progress Notes Diana Hodgson RN - 12/07/2015 1:48 PM PDTINFUSION/TRANSFUSION NURSING NOTE Name: Khurram Kelly Date: 12/07/2015 Provider: Primary [facility] MD: Yari Garcia MD Primary Oncologist: Yari Garcia MD Diagnosis: AMML, 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 He is here for a lab draw, provider ap pointment and dressing change. Assessment: Pain: Hip pain of 2 Fever or chills: none Fatigue or sleep disturbance: none Dizziness: none Neuropathy: none Mucositis: none Dyspnea, cough: none Signs of bleeding: none Nausea, vomiting or loss of appetite: appetite has greatly improved. Stated he is eating " great". No nausea/vomiting Fluid intake: 2L Diarrhea or constipation: none Edema: none Rash: none Vascular Access: Neostar accessed per protocol. Good blood return noted. Appropriate wast e discarded. Labs drawn and sent. Neostar pulse flushed with 20 mL NS. Neostar intact to right anterior chest wall without erythema or induration. Dressing removed, skin intact wit hout s/s exit site or tunnel infection. Using a Central Line Dressing Change kit, site fernando nsed with Chloraprep. Skin prep applied prior to dressing application. Biopatch applied wi th Tegaderm dressing. Positive pressure valves changed to each port. All lumens pulse flu shed with 5 mL of 10 units/mL Heparin. Patient tolerated procedure without difficulty. Treatment Provided: Patient reports that they did not take their tacrolimus prior to clinic visit. They report taking a dose of 1mg in am and 0.5mg in pm. Patient provided a phone number in which he woul d like to be contacted, they were advised that they would receive a call with any dose adjus tments this evening. Patient was reminded to call clinic with temp > 100.4, chills, s/s of bleeding or uncontrol led N/V/D/C. Patient verbalizes understanding. Patient was instructed to check out at the ont desk prior to leaving the clinic. Patient d/c d ambulatory with spouse. Next Appointme nt in [facility] is on 12/27/15 at 8:00 am with [facility]. Diana Hodgson RN documented in thi s encounter Plan of Treatment +--------+---------+ + + + | Date | Type | Specialty | Care Team | Description | +--------+---------+ + + + | 05/19/ | Lab | Phlebotomy | | | | 2019 | | | | | +--------+---------+ + + + | 05/19/ | Office | Hematology | Yari Garcai MD | | | 2019 | Visit | Malignancy | [address] [facility] | | | | | | [address] | | | | | | [place], [place] | | | | | | [address] | | | | | | [phone] | | | | | | | | +--------+---------+ + + + documented as of this encounter Procedures + +--------+ + + + | Procedure Name | Priori | Date/Time | Associated Diagnosis | Comments | | | ty | | | | + +--------+ + + + | CMV PCR | Routin | 12/07/2015 | Acute myeloid | Results for this | | QUANTITATION, PLASMA | e | 1:02 PM | leukemia (AML), M4 | procedure are in the | | | | PDT | ([facility])- primary | results section. | | | | | induction failure | | | | | | Immunocompromised | | | | | | state associated | | | | | | with stem cell | | | | | | transplant ([facility]) | | | | | | CMV (cytomegalovirus | | | | | | infection) status | | | | | | unknown ([facility]) | | + +--------+ + + + | CBC+DIFF,POC | Routin | 12/07/2015 | S/P allogeneic | Results for this | | | e | 12:09 PM | bone marrow | procedure are [...] + MAG, POC CHM | Routin | 12/07/2015 | S/P allogeneic | Results for this | | | e | 12:07 PM | bone marrow | procedure are [...] + | LIVER SET | Urgent | 12/07/2015 | S/P allogeneic | Results for this | | (AST,ALT,BILI | | 11:41 AM | bone marrow | procedure are [...] + | TACROLIMUS, WHOLE | Routin | 12/07/2015 | S/P allogeneic | Results for this | | BLOOD | e | 11:41 AM | bone marrow | procedure are [...] + | TREATMENT PARAMETERS | Routin | 12/07/2015 | Acute myeloid | | | #2 - [place] | e | 11:40 AM | leukemia (AML), M4 | | | | | PDT | ([facility])- primary | | | | | | induction failure | | + +--------+ + + + | TREATMENT PARAMETERS | Routin | 12/07/2015 | Acute myeloid | | | #2 - [place] | e | 11:40 AM | leukemia (AML), M4 | | | | | PDT | ([facility])- primary | | | | | | induction failure | | + +--------+ + + + | TREATMENT PARAMETERS | Routin | 12/07/2015 | Acute myeloid | | | #2 - [place] | e | 11:40 AM | leukemia (AML), M4 | | | | | PDT | ([facility])- primary | | | | | | induction failure | | + +--------+ + + + | TREATMENT PARAMETERS | Routin | 12/07/2015 | Acute myeloid | | | #2 - [place] | e | 11:40 AM | leukemia (AML), M4 | | | | | PDT | ([facility])- primary | | | | | | induction failure | | + +--------+ + + + | TREATMENT PARAMETERS | Routin | 12/07/2015 | Acute myeloid | | | #2 - [place] | e | 11:40 AM | leukemia (AML), M4 | | | | | PDT | ([facility])- primary | | | | | | induction failure | | + +--------+ + + + | NURSING | Routin | 12/07/2015 | Acute myeloid | | | COMMUNICATION #3 - | e | 11:40 AM | leukemia (AML), M4 | | | [facility] | | PDT | ([facility])- primary | | | | | | induction failure | | + +--------+ + + + | NURSING | Routin | 12/07/2015 | Acute myeloid | | | COMMUNICATION #2 - | e | 11:40 AM | leukemia (AML), M4 | | | [facility] | | PDT | ([facility])- primary | | | | | | induction failure | | + +--------+ + + + | NURSING | Routin | 12/07/2015 | Acute myeloid | | | COMMUNICATION #1 - | e | 11:40 AM | leukemia (AML), M4 | | | [facility] | | PDT | ([facility])- primary | | | | | | induction failure | | + +--------+ + + + | TREATMENT PARAMETERS | Routin | 12/07/2015 | Acute myeloid | | | #1 - [place] | e | 11:40 AM | leukemia (AML), 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 | | | | | | induction failure | | + +--------+ + + + | TREATMENT PARAMETERS | Routin | 12/07/2015 | Acute myeloid | | | #1 - [place] | e | 11:40 AM | leukemia (AML), M4 | | | | | PDT | ([facility])- primary | | | | | | induction failure | | + +--------+ + + + documented in this encounter Results CMV PCR QUANTITATION, PLASMA (12/07/2015 1:02 PM PDT) + + + + + [...] clinical | | | laboratory under [facility], [facility], and the [facility]. | | + + + + + + + + | Performing | Address | City/State/Zipcode | Phone Number | | Organization | | | | + + + + + | [facility] | [address] | [place] [address] | | | DIAGNOSTIC | [address] | | | | LABORATORIES | | | | + + + + + CBC+DIFF,POC (12/07/2015 12:09 PM PDT) + + + + + [...] + + + | RBC POC | 3.52 (L) | 4.50 - 6.00 | [facility] - | | | | | 10*6/uL | [place] | | | | | | RUTHIE CARTER | | | | | | OF CARE | | | | | | TESTS | | + + + + + + | HGB POC | 12.6 (L) | 13.5 - 17.5 | [facility] - | | | | | g/dL | [place] | | | | | | RUTHIE CARTER | | | | | | OF CARE | | | | | | TESTS | | + + + + + + | HCT POC | 36.0 (L) | 41.0 - 53.0 % | [...] + + | RDW SD, POC | 55.2 (H) | 35.1 - 46.3 fL | [facility] - | | | | | | [place] | | | | | | RUTHIE CARTER | | | | | | OF CARE | | | | | | TESTS | | + + + + + + | PLT POC | 36 (L) | 150 - 400 | [facility] [...] + + + + | NEUTROPHIL% | 71.3 (H) | 50.0 - 70.0 % | [facility] - | | | POC | | | [place] | | | | | | [facility], POINT | | | | | | OF CARE | | | | | | TESTS | | + + + + + + | LYMPH% POC | 21.1 | 18 - 42 % | [facility] - | | | | | | [place] | | | | | | [facility], POINT | | | | | | OF CARE | | | | | | TESTS | | + + + + + + | MONO %, POC | 6.6 | 3.5 - 9.0 % | [facility] [...] + + + + | NEUTROPHIL# | 5.0 | 1.8 - 7.7 | [facility] - [...] + + + + | CBC | imm gran, lft shift | | [facility] - | | [...] [facility] | [address] | [place], [place] | | | [place], POINT OF CARE | [address] | [address] | | | TESTS | | | | + + + + + BMP + MAG, POC [facility] (12/07/2015 12:07 PM PDT) + +---------+ + + + [...] | | | | | | RUTHIE CATRER | | | | | | OF [...] + + + | LDH, POC | 235 (H) | 0 - 206 U/L | [...] + + + | [facility] | [address] | [place], [place] | | | [facility] POINT OF [facility] | [address] | [address] | | | TESTS | | | | + + + + + LIVER SET (AST,ALT,BILI TOTAL,BILI DIRECT,ALK PHOS,ALB,PROT TOTAL) (12/07/2015 11:41 AM PDT ) + +---------+ + + [...] +---------+ + + + | AST(SGOT) | 43 (H) | <=41 U/L | [facility] | | | | | | LABORATORY | | | | | | SERVICES, | | | | | | CORE | | + +---------+ + + + | ALT (SGPT) | 118 (H) | <=60 U/L | [facility] | [...] [facility] | [address] | [place] [address] | | | SERVICES, CORE | [address] | | | + + + + + TACROLIMUS, WHOLE BLOOD (12/07/2015 11:41 AM PDT) + +-------+ + + + | Component | Value | Ref Range | Performed | Pathologist | | | | | At | Signature | + +-------+ + + + | TACROLIMUS | 7.5 | 5.0 - 15.0 | [facility] | [...] + + + + + | [facility] | [address] | [place] [address] | | | SERVICES, SPECIAL | [address] [...] replaced by transplant | + + | Immunocompromised state associated [...] 10 unit/mL IV flush | Given | 12/07/19 | 50 Units | | | | syringe 50 Units 50 Units, | | 16 1:32 | | | | | Intracatheter, NEEDED, | | PM PDT | | | | | Starting 12/07/15 at 1143, | | | | | | | Until e 12/07/15 at 2326, line | | | | | | | patency | | | | | | + +--------+ + +------+------+ +-------+ + +---+---+ | Given | 12/07/19 | 50 Units | | | | | 16 1:31 | | | | | | PM PDT | | | | +-------+ + +---+---+ | Given | 12/07/19 | 50 Units | | | | | 16 1:30 | | | | | | PM PDT | | | | +-------+ + +---+---+ +---+---+ | | | +---+---+ documented in this encounter
--- OUTSIDE RECORDS SUMMARY | ~2019-05-17 | XMS | Encounter Summary ---
Demographics + + + | Address | [address] | | | [place] [address] | + + + | Home Phone [...] Providers + +------+ + | Care Air Chief Marshal Name | Role | Phone | + +------+ + | Pending Pcp Addition | PCP | Unavailable | + +------+ + Encounter Details +--------+ + + + + | Date | Type | Department | Care Team | Description | +--------+ + + + + | 07/02/ | Flame Degreaser | Center for | [place], | Acute myeloid | | 2015 | | Hematologic | [place] | leukemia (AML), M4 | | | | Malignancies at [facility] | [address] | (HCC) (Primary Dx) | | | | [address] | [place], | | | | | Wally Burger Mailcode: | [place] [address] | | | | | [facility] [place] | [phone] | | | | | [place], | | | | | | [place] [address] | | | | | | [phone] | | | +--------+ + + + [...] Rd | | | | | | [place], [place] | | | | | | [address] | | | | | | [phone] | | | | | | | [...] SORTO | [address] | [place], [place] | | | [facility] | [address] | [address] | | | TESTS | | | [...] | + + + + + | [facility] | [address] [facility] | [place] [address] | | | SERVICES, CORE | WALLY [...] HOSPITAL LABORATORY | [address] | [place] [address] | | | SERVICES, CORE | PARK [...] YESSICA LOZA | [address] | [place] [address] | | | SERVICES, CORE | [address] | | | + + + + + documented in this encounter Visit Diagnoses + + | Diagnosis | + + | Acute myeloid leukemia (AML), M4 (HCC) - Primary | + + documented in this encounter"
--- OUTSIDE RECORDS SUMMARY | ~2019-05-17 | XMS | Encounter Summary ---
Demographics + + + | Address | [address] | | | [place] [address] | + + + | Home Phone [...] Team Providers + +------+ + | Care Study Assistant Name | Role | Phone | [...] | | | | | | | [address] | | | | | | | Phone: | | | | | | | [phone] | | | | | | | Fax: | | | | | | | [phone] | +--------+--------+ + + + + Encounter [...] | | | | | | [facility] [address] | | | | | | [place], | | | | | | [place] [address] | | | | | | [phone] | | | +--------+ + + + [...] Rd | | | | | | [place], [place] | | | | | | [address] | | | | | | [phone] | | | | | | | [...] [place] | [address] | [place], [place] | | | RUTHIE CARTER OF CARE | [facility] | [address] | | | TESTS | | | [...] + + | YESSICA SORTO | [address] | [place], [place] | | | [facility] | [address] | [address] | | | TESTS | | | [...] [facility] | [address] | [place] [address] | | | SERVICES, CORE | PARK [...] | characteristics determined by the [facility] | | | Molecular Diagnostic Center. [...] | Act of 1988. The [facility] Molecular | | | Diagnostic Center is a fully licensed and/or accredited clinical | | | laboratory under CLIA, CAP, and the [facility]. | | + + + + + + + + | Performing | Address | City/State/Zipcode | Phone Number | | Organization | | | | + + + + + | [facility] | [address] | [place] [address] | | | DIAGNOSTIC | [address] [...]
--- OUTSIDE RECORDS SUMMARY | ~2019-05-17 | XMS | Encounter Summary ---
Demographics + + + | Address | [address] | | | [place] [address] | + + + | Home Phone [...] Providers + +------+ + | Care A Class Lineman Name | Role | Phone | + [...] | | | | | Malignancies at [facility] | [address] | | | | | [address] | [place], [place] | | | | | Debi Burger Mailcode: | [address] | | | | | [facility] | [phone] | | | | | [place], | | | | | | [place] [address] | | | | | | [phone] | | | +--------+--------+ + + + [...] Rd | | | | | | [place] | | | | | | [address] | | | | | | [phone] | | | | | | | | +--------+---------+ + + + documented as of this encounter Visit Diagnoses Not on filedocumented in this encounter"
--- OUTSIDE RECORDS SUMMARY | ~2019-05-17 | XMS | Encounter Summary ---
Demographics + + + | Address | [address] | | | [place] [address] | + + + | Home Phone [...] Providers + +------+ + | Care Personal Lines Underwriter Name | Role | Phone | + [...] | | | | | | [place], | | | | | | | [place] | | | | | | | [address] | | | | | | | Phone: | | | | | | | [phone] | | | | | | | Fax: | | | | | | | [phone] | +--------+--------+ + + + + Encounter [...] | | | | Malignancies at | [address] | (HCC) (Primary Dx) | | | | [address] | [place], [place] | | | | | [address] | [address] | | | | | Debi Burger Mailcode: | [phone] | | | | | [facility] [address] | | | | | | [place], | | | | | | [place] [address] | | | | | | [phone] | | | +--------+---------+ + + + [...] MM URD (DPB1 permissive antigen mismatch, male, 5913-5310-2) Identifying Data: Khurram Kelly is a 25 [...] his L ankle. He was evaluated at [facility] ED on 06/[address] [...] CD34, variable CD56, variable CD117, and dim [id number] mickey; promonocyte immunophenotype (70% by flow): CD11b, [...] by me on 05/29/16. He travelled to [facility] for Thanksgiving, had a good visit with family and friends. Appetite is good, no c/o N/V/D. Notes mild erythema to skin this morning with acniform rash to upper chest. Also reports tenderness to nipples over th e last week. Continues to take xanax for anxiety. Feels his symptoms are well controlled at this time. He has not yet started paxil. Forgot to merchandise pickup/receiving associate his prescription prior to heading out of [...] one year anniversary, sooner p rn 2. Pjrjt-wu-Unwi Disease: Skin bx due to mild rash [...] he was seen in the ED in [place] in late 01/21. Prednisone was increased back [...] a peer support group or support at [facility], rubia oates felt this was no [...] pr[facility]LY [facility] AT [address] Mailcode: [place] [phone] documente d in this encounter Plan of [...] Rd | | | | | | [place], [place] | | | | | | [address] | | | | | | [phone] | | | | | | | [...] | | | this test in the [employer] | | | | | | Laboratory Test | | | | | | Directory | | | | | | ([employer]Hear It First).Performed | | | | | | by [employer],[address] | | | | | | [address], [facility],[place] | | | | | | [address] | | | | | | [phone].[employer]omerce. | | | | | | Elmo [...] [facility] | [address] | [place], [place] | | | [facility] | | [address] | | + + + + + documented in this encounter Visit Diagnoses + + | Diagnosis | + + | 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
--- OUTSIDE RECORDS SUMMARY | ~2019-05-17 | XMS | Encounter Summary ---
Demographics + + + | Address | [address] | | | [place] [address] | + + + | Home Phone [...] Team Providers + +------+ + | Care Slider Assembler Name | Role | Phone | [...] | | | | Christian Barry | [place], [place] | (Primary Dx) | | | | [address] | [address] | | | | | Wally Burger Mailcode: | [phone] | | | | | [facility] [address] | | | | | | [place], | | | | | | [place] [address] | | | | | | [phone] | | | +--------+---------+ + + + [...] panel with liver labs done locally at [facility] (in [place]) in 2 weeks. Please have the results sent to us. Please call the following day after you have labs done to have the results reviewed. Call our institutional asset manager number. If you have any issues at home, please call our triage number. Start ursodiol 300 mg twice daily. I will send this in to [facility] in [place]. Avoid tylenol containing products. Diagnostic Visit on [...] Donor: MMURD (DPB1 permissive antigen mismatch, male, 1121-4710-2) Identifying Data: Khurram Kelly is a 26 [...] his L ankle. He was evaluated at [facility] ED on 06/[address] angiogram negative [...] acute myelomonocytic leukemia. He was referred to [facility] for further evaluation and man agement of his newly dx'd AML. Pt was admitted to [facility] on 05/26/15. Peripheral blood was sent [...] CD34, variable CD56, variable CD117, and dim [id number] mickey; promonocyte immunophenotype (70% by flow): CD11b, [...] after returning f rom a trip to [place] and prior to moving back home. He is feeling well - had a good tri p to [place] where he stayed with his in-laws. Ate [...] seeing a counselor when he moves back [facility]. Has not resubmitted a sperm sample to [...] CBC COMMENT, POC 01/18/2017 Imm Gran. SODIUM, [facility] 01/18/2017 135 POTASSIUM, POC 01/18/2017 4.2 TOTAL CO2, [facility] 01/18/2017 26 CHLORIDE, POC 01/18/2017 103 GLUCOSE, POC 01/18/2017 104* CALCIUM TOTAL, [facility] 01/18/2017 9.2 BUN, POC 01/18/2017 11 CREATININE, POC 01/18/2017 0.9 ALK PHOS, [facility] POC 01/18/2017 65 ALT, [facility] POC 01/18/2017 152* AST, [facility] 01/18/2017 77* BILIRUBIN TOTAL, [facility] POC 01/18/2017 0.6 ALBUMIN, [facility] 01/18/2017 3.6 PROTEIN TOTAL, [facility] 01/18/2017 6.2 MAGNESIUM,PLASMA 01/18/2017 2.2 LD TOTAL, [...] indicated providing peripheral counts remain stable 2. 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 He initially responded but flared during taper. He also developed low-level nausea and abd discomfort concerning for GvHD, emp irically treated with oral non-absorbables with resolution. - He had tapered prednisone to 10 mg po daily when he developed a rash for which he was see n in the ED in [place] in late 01/21. Prednisone was increased back [...] candidiasis His most recent immune reconstitution panel [facility] 08/31/16 showed normal total T [...] friendships with other young survivors. Traveling to [facility] 01/02-01/17/17 w ith plans to move back to [place] tomorrow --> recommmended cognitive behavioral therapy and [...] --> labs locally in 2 weeks in [place] at [facility] (ordered faxed) --> F/u at [facility] in 4 weeks, sooner if interval complications. Yari Garcia MD, MS Maintenance Department Managerbaggage security checker [facility] [address] [place] [address] documented in this enc ounter Plan of [...] [place] | | | | | | [address] | | | | | | [phone] | | | | | | | [...] | Test performed by immunoassay using [employer] Package Line Operator i2000. . | [facility] | | Samples [...] [facility] | [address] | [place] [address] | | | SERVICES, SPECIAL | PARK [...] [facility] | [address] | [place] [address] | | | SERVICES, CORE | PARK [...] [facility] | [address] | [place] [address] | | | SERVICES, CORE | PARK [...] | + + + + + | [facility] | [address] | [place] [address] | | | SERVICES, CORE | [address] [...] [facility] | [address] | [place] [address] | | | SERVICES, INDRA | [address] [...] | + + + + + | [facility] | [address] | [place] [address] | | | SERVICES, CORE | [address] | | | + + + + + documented in this encounter Visit Diagnoses + + | Diagnosis | + + | 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
--- OUTSIDE RECORDS SUMMARY | ~2019-05-17 | XMS | Encounter Summary ---
Demographics + + + | Address | [address] | | | [place] [address] | + + + | Home Phone [...] Providers + +------+ + | Care Steam Plant Records Clerk Name | Role | Phone | [...] + + + + | 08/21/ | Diagnostic | Center for | | [...] | | | | | [place] [facility] | | | | | | [place] [address] | | | | | | [phone] | | | +--------+ + + + [...] encounter Progress Notes Mini Disla MA - 08/21/2016 2:45 PM PSTVenipuncture performed in clinic, blood sampl e obtained from Left antecubital site documented in this e ncounter Plan of [...] Rd | | | | | | [place] | | | | | | [address] | | | | | | [phone] | | | | | | | | +--------+---------+ + + + documented as of this encounter Visit Diagnoses Not on filedocumented in this encounter"
--- OUTSIDE RECORDS SUMMARY | ~2019-05-17 | XMS | Encounter Summary ---
Demographics + + + | Address | [address] | | | [place] [address] | + + + | Home Phone [...] Team Providers + +------+ + | Care Accessories Repairer Name | Role | Phone | [...] | | | | | remission | [address] | [facility] | | | | | | Phone: | Pavilion | | | | | Procedures | [phone] | [place], [place] | | | | | Post BMT | Fax: | [address] | | | | | Auth to | [phone] | Phone: | | | | | included | | [phone] | | | | | facility, | | Fax: | | | | | diagnostics, | | [phone] | | | | | office | [...] 2016 | Visit | Hematologic | [address] [facility] | marrow transplant | | | | Malignancies at | [facility] | (HCC) (Primary Dx) | | | | [facility] | [place], [place] | | | | | [address] [facility] | [address] | | | | | [facility] Mailcode: | [phone] | | | | | [facility] [address] | | | | | | Pavilion [place], | | | | | | [place] [address] | | | | | | [phone] | | | +--------+---------+ + + + [...] MM URD (DPB1 permissive antigen mismatch, male, 9135-2648-2) Identifying Data: Khurram Kelly is a 25 [...] his L ankle. He was evaluated at [facility] on 06/[address] angiogram negative [...] CD34, variable CD56, variable CD117, and dim [id number] mickey; promonocyte immunophenotype (70% by flow): CD11b, [...] without c/o. [facility], had a great [...] 1 mg capsule) by mouth twice daily. [place] 0.5 mg capsules for future use. Indications: [...] mg/m2 IV daily x 5 days 2. Gzwij-gi-Lpjz Disease: Skin bx due to mild rash [...] MALIGNANCIES AT [facility] [address] [facility] Mailcode: [place] [address] documented in this enc ounter [...] Hospital | | | | | | [facility] | | | | | | [place], [place] | | | | | | [address] | | | | | | [phone] | | | | | | | | +--------+---------+ + + + documented as of this encounter Visit Diagnoses + + | Diagnosis | + + | 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
--- OUTSIDE RECORDS SUMMARY | ~2019-05-17 | XMS | Encounter Summary ---
Demographics + + + | Address | [address] | | | [place] [address] | + + + | Home Phone [...] Providers + +------+ + | Care Vacuum Cooker Operator Name | Role | Phone | + +------+ + | Zayda Hinton | PCP | | + +------+ + Encounter Details +--------+ + + + + | Date | Type | Department | Care Team | Description | +--------+ + + + + | 08/06/ | Pharmacy | Specialty Pharmacy | | | | 2015 | Visit | Services [address] | | | | | | [address] | | | | | | [place], [place] | | | | | | [address] | | | | | | [phone] | | | +--------+ + + + [...] [place] | | | | | | [address] | | | | | | [phone] | | | | | | | | +--------+---------+ + + + documented as of this encounter Visit Diagnoses Not on filedocumented in this encounter"
--- OUTSIDE RECORDS SUMMARY | ~2019-05-17 | XMS | Encounter Summary ---
Demographics + + + | Address | [address] | | | [place] [address] | + + + | Home Phone [...] Team Providers + +------+ + | Care Theatrical Performer Name | Role | Phone | + +------+ + | No Pcp Per Patient | PCP | Unavailable | + +------+ + Encounter Details +--------+ + + + + | Date | Type | Department | Care Team | Description | +--------+ + + + + | 11/02/ | Telephone | Center for | Aspen Cummins FNP | | | 2017 | | Hematologic | [address] | | | | | Malignancies at | [address] | | | | | [address] | [place], [place] | | | | | [address] | [address] | | | | | Debi Burger Mailcode: | [phone] | | | | | [facility] [address] | | | | | | [facility]a [facility] | | | | | | [place] [address] | | | | | | [phone] | | | +--------+ + + + [...] [place] | | | | | | [address] | | | | | | [phone] | | | | | | | | +--------+---------+ + + + documented as of this encounter Visit Diagnoses Not on filedocumented in this encounter"
--- OUTSIDE RECORDS SUMMARY | ~2019-05-17 | XMS | Encounter Summary ---
Demographics + + + | Address | [address] | | | [place] [address] | + + + | Home Phone [...] Team Providers + +------+ + | Care Synthetic Resin Operator Name | Role | Phone | [...] | | | | Christian Barry | [place], [place] | | | | | [address] | [address] | | | | | De[address] Mailcode: | [phone] | | | | | [facility] [address] | | | | | | [place], | | | | | | [place] [address] | | | | | | [phone] | | | +--------+ + + + [...] Rd | | | | | | [place], [place] | | | | | | [address] | | | | | | [phone] | | | | | | | | +--------+---------+ + + + documented as of this encounter Visit Diagnoses Not on filedocumented in this encounter"
--- OUTSIDE RECORDS SUMMARY | ~2019-05-17 | XMS | Encounter Summary ---
Demographics + + + | Address | [address] | | | [place] [address] | + + + | Home Phone [...] Team Providers + +------+ + | Care Field Service Technician Name | Role | Phone | + +------+ + | No Pcp Per Patient | PCP | Unavailable | + +------+ + Encounter Details +--------+------+ + + + | Date | Type | Department | Care Team | Description | +--------+------+ + + + | 12/07/ | Lab | Laboratory, | | S/P allogeneic bone | | 2016 | | Specimen Collection | | marrow transplant | | | | at [facility] 3rd Floor | | ([facility]) | | | | [address] | | | | | | [place], | | | | | | [place] [address] | | | | | | [phone] | | | +--------+------+ + + + [...] 2019 | Visit | Malignancy | [address] [facility] | | | | | | [address] | | | | | | [place], [place] | | | | | | [address] | | | | | | [phone] | | | | | | | | +--------+---------+ + + + documented as of this encounter Procedures + +--------+ + + + | Procedure Name | Priori | Date/Time | Associated Diagnosis | Comments | | | ty | | | | + +--------+ + + + | CBC AND AUTO DIFF | Routin | 12/07/2016 | S/P allogeneic | Results for this | | | e | 9:07 AM | bone marrow | procedure are in the | | | | PDT | transplant ([facility]) | results section. | + +--------+ + + + | CBC, WITH | Routin | 12/07/2016 | S/P allogeneic | Results for this | | DIFFERENTIAL | e | 9:07 AM | bone marrow | procedure are in the | | | | PDT | transplant ([facility]) | results section. | + +--------+ + + + | COMPLETE METABOLIC | Routin | 12/07/2016 | S/P allogeneic | Results for this | | SET | e | 9:07 AM | bone marrow | procedure are in the | | (NA,K,CL,CO2,BUN,CRE | | PDT | transplant ([facility]) | results section. | | AT,GLUC,CA,AST,ALT,B | | | | | | YUN TOTAL,ALK | | | | | | PHOS,ALB,PROT TOTAL) | | | | | + +--------+ + + + | TACROLIMUS, WHOLE | Routin | 12/07/2016 | S/P allogeneic | Results for this | | BLOOD | e | 9:07 AM | bone marrow | procedure are in the | | | | PDT | transplant ([facility]) | results section. | + +--------+ + + + | PHOSPHORUS, PLASMA | Routin | 12/07/2016 | S/P allogeneic | Results for this | | | e | 9:07 AM | bone marrow | procedure are in the | | | | PDT | transplant ([facility]) | results section. | + +--------+ + + + | BILIRUBIN DIRECT | Routin | 12/07/2016 | S/P allogeneic | Results for this | | | e | 9:07 AM | bone marrow | procedure are in the | | | | PDT | transplant ([facility]) | results section. | + +--------+ + + + | URIC ACID, PLASMA | Routin | 12/07/2016 | S/P allogeneic | Results for this | | | e | 9:07 AM | bone marrow | procedure are in the | | | | PDT | transplant ([facility]) | results section. | + +--------+ + + + | MAGNESIUM, PLASMA | Routin | 12/07/2016 | S/P allogeneic | Results for this | | | e | 9:07 AM | bone marrow | procedure are in the | | | | PDT | transplant ([facility]) | results section. | + +--------+ + + + | LDH TOTAL, PLASMA | Routin | 12/07/2016 | S/P allogeneic | Results for this | | | e | 9:07 AM | bone marrow | procedure are in the | | | | PDT | transplant ([facility]) | results section. | + +--------+ + + + documented in this encounter Results CBC AND AUTO DIFF (12/07/2016 9:07 AM PDT) + + + + + + | Component | Value | Ref Range | Performed | Pathologist | | | | | At | Signature | + + + + + + | WHITE CELL | 7.52 | 3.50 - 10.80 | [facility] | | | COUNT | | K/cu mm | LABORATORY | | | | | | SERVICES, | | | | | | CORE | | + + + + + + | RED CELL | 4.01 (L) | 4.50 - 6.00 | [facility] | | | COUNT | | M/cu mm | LABORATORY | | | | | | SERVICES, | | | | | | CORE | | + + + + + + | HEMOGLOBIN | 12.7 (L) | 13.5 - 17.5 | [facility] | | | | | g/dL | LABORATORY | | | | | | SERVICES, | | | | | | CORE | | + + + + + + | HEMATOCRIT | 38.8 (L) | 41.0 - 53.0 % | [facility] | | | | | | LABORATORY | | | | | | SERVICES, | | | | | | CORE | | + + + + + + | MCV | 96.8 (H) | 80.0 - 96.0 fL | [facility] | | | | | | LABORATORY | | | | | | SERVICES, | | | | | | CORE | | + + + + + + | MCHC | 32.7 | 33.0 - 35.5 | [facility] | | | | | g/dL | LABORATORY | | | | | | SERVICES, | | | | | | CORE | | + + + + + + | RDW SD | 51.1 (H) | 35.1 - 46.3 fL | [facility] | | | | | | LABORATORY | | | | | | SERVICES, | | | | | | CORE | | + + + + + + | PLATELET | 282 | 150 - 400 K/cu | [facility] [...] + + + + | NEUTROPHIL | 56.4 | 50.0 - 70.0 % | [facility] | | | % | | | LABORATORY | | | | | | SERVICES, | | | | | | CORE | | + + + + + + | LYMPHOCYTE | 31.5 | 18.0 - 42.0 % | [facility] | | | % | | | LABORATORY | | | | | | SERVICES, | | | | | | CORE | | + + + + + + | MONOCYTE % | 7.8 | 3.5 - 9.0 % | [facility] | | | | | | LABORATORY | | | | | | SERVICES, | | | | | | CORE | | + + + + + + | EOS % | 3.5 (H) | 1.0 - 3.0 % | [...] + + + + | NEUTROPHIL | 4.24 | 1.80 - 7.70 | [facility] | | | # | | K/cu mm | LABORATORY | | | | | | SERVICES, | | | | | | CORE | | + + + + + + | LYMPHOCYTE | 2.37 | 1.00 - 4.80 | [facility] | [...] + + + | EOS # | 0.26 | 0.00 - 0.50 | [facility] | [...] | + + + + + | [facility] | [address] | [place] [address] | | | INDRA SHARIF | [address] | | | + + + + + TACROLIMUS, WHOLE BLOOD (12/07/2016 9:07 AM PDT) + +---------+ + + + | Component | Value | Ref Range | Performed | Pathologist | | | | | At | Signature | + +---------+ + + + | TACROLIMUS | 4.2 (L) | 5.0 - 15.0 | [facility] [...] | Test performed by immunoassay using [employer] Reporter i2000. . | [facility] | | Samples [...] [facility] | [address] | [place] [address] | | | SERVICES, SPECIAL | [address] | | | | IMM + COAG | | | | + + + + + LDH TOTAL, PLASMA (12/07/2016 9:07 AM PDT) + +---------+ + + + | Component | Value | Ref Range | Performed | Pathologist | | | | | At | Signature | + +---------+ + + + | LD TOTAL, | 125 | <=250 U/L | [facility] | | [...] + + + + + | [facility] | [address] | [place] [address] | | | SERVICES, CORE | [address] | | | + + + + + BILIRUBIN DIRECT (12/07/2016 9:07 AM PDT) + +---------+ + + + [...] [facility] | [address] | [place] [address] | | | SERVICES, CORE | [address] | | | + + + + + URIC ACID, PLASMA (12/07/2016 9:07 AM PDT) + +-------+ + + + [...] | + + + + + | [facility] | [address] | [place] [address] | | | SERVICES, CORE | [address] | | | + + + + + PHOSPHORUS, PLASMA (12/07/2016 9:07 AM PDT) + +-------+ + + + [...] [facility] | [address] | [place] [address] | | | SERVICES, CORE | [address] | | | + + + + + MAGNESIUM, PLASMA (12/07/2016 9:07 AM PDT) + +-------+ + + + [...] [facility] | [address] | [place] [address] | | | SERVICES, CORE | [address] | | | + + + + + COMPLETE METABOLIC SET (NA,K,CL,CO2,BUN,CREAT,GLUC,CA,AST,ALT,BILI TOTAL,ALK PHOS,ALB,PROT TOTAL) (12/07/2016 9:07 AM PDT) + +---------+ + + + [...] + + + | BUN, PLASMA | 6 | 6 - 20 mg/dL | [facility] | | | (LAB) | | | LABORATORY | | | | | | SERVICES, | | | | | | CORE | | + +---------+ + + + | CREATININE | 0.76 | 0.70 - 1.30 | [facility] | | | PLASMA | | mg/dL | LABORATORY | | | (LAB) | | | SERVICES, | | | | | | CORE | | + +---------+ + + + | EGFR | >60 | >60 mL/min | [facility] | | | - | | | LABORATORY | | | EG[place]IAN | | | SERVICES, | | | [...] + + | TOTAL CO2, | 31 | 21 - 32 mmol/L | [facility] [...] +---------+ + + + | CALCIUM(ALB | 9.0 | 8.6 - 10.2 | [...] [facility] | [address] | [place] [address] | | | SERVICES, CORE | [address] | | | + + + + + documented in this encounter Visit Diagnoses + + | Diagnosis | + + | 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
--- OUTSIDE RECORDS SUMMARY | ~2019-05-17 | XMS | Encounter Summary ---
Demographics + + + | Address | [address] | | | [place] [address] | + + + | Home Phone [...] Team Providers + +------+ + | Care Passenger Representative Name | Role | Phone | + +------+ + | Zayda Hinton | PCP | | + +------+ + Encounter Details +--------+--------+ + + + | Date | Type | Department | Care Team | Description | +--------+--------+ + + + | 11/12/ | Refill | [facility] | Sabrina Baez, | | | 2019 | | [place] at | [address] | | | | | [address] | [address] | | | | | [address] | [place], [place] | | | | | Mailcode: ROBBIE | [address] | | | | | [facility] [place] | [phone] | | | | | [address] | | | | | | [phone] | | | +--------+--------+ + + + [...] | 2019 | Visit | Malignancy | [address] [facility] [address] | | | | | | [address] | | | | | | [place], [place] | | | | | | [address] | | | | | | [phone] | | | | | | | | +--------+---------+ + + + documented as of this encounter Visit Diagnoses Not on filedocumented in this encounter"
--- OUTSIDE RECORDS SUMMARY | ~2019-05-17 | XMS | Clinical Summary ---
Demographics + + + | Address | [address] | | | [place] [address] | + + + | Home Phone | | + + + | Preferred Language | Unknown | + + + | Marital Status | | + + + | Evangelical Affiliation | Unknown | + + + | Race | Unknown | + + + | Ethnic Group | Unknown | + + + Author + + + | Author | [facility] | | | and [place] | + + + | Organization | [facility] | | | and [place] | + + + | Address | Unknown | + + + | Phone | Unavailable | + + + Support + + + + + | Name | Relationship | Address | Phone | + + + + + | Gabriel Kelly | ECON | [address] | | | | | [place] | | | | | [address] | | + + + + + | Remedios Kelly | ECON | [address] | | | | | [place] [address] | | + + + + + Care Team Providers + +------+ + | Care Ginner Helper Name | Role | Phone | [...] | | + +--------+ +--------+ +---------+--------+ | [facility] | PHP | [phone] | 10/08/19 | [phone] | | PPO | | PLAN | PEBB | | 11-Pre | 5 | | | | | STATEW | | sent | | | | | | GINA | | | | | | + +--------+ +--------+ +---------+--------+ | [place]ICAID [place] | MEDICA | [id number] | | [phone] | | Medica | | | ID [...] | Self | [birth year] | [address] | | [place]obo | dandy/Patrick | | 1990 | [phone] | [place] | | | varun | | | [address] (Home) | [address] | + +--------+ +--------+ + + Advance Directives Patient has advance care planning documents on file. For more information, please contact:[facility] [place] [address]
--- OUTSIDE RECORDS SUMMARY | ~2019-05-17 | XMS | Encounter Summary ---
Demographics + + + | Address | [address] | | | [place] [address] | + + + | Home Phone [...] Team Providers + +------+ + | Care Dermatology Procedural Physician Name | Role | Phone | [...] | | | | Christian Barry | [place], [place] | | | | | [address] | [address] | | | | | [address] [place] Mailcode: | [phone] | | | | | [address] | | | | | | [facility] | | | | | | [place] [address] | | | | | | [phone] | | | +--------+ + + + [...] [address] | | | | | | [place], [place] | | | | | | [address] | | | | | | [phone] | | | | | | | | +--------+---------+ + + + documented as of this encounter Visit Diagnoses Not on filedocumented in this encounter"
--- OUTSIDE RECORDS SUMMARY | ~2019-05-17 | XMS | Encounter Summary ---
Demographics + + + | Address | [address] | | | [place] [address] | + + + | Home Phone [...] Team Providers + +------+ + | Care Security Escort Name | Role | Phone | + [...] | 2017 | | Hematologic | [address] | referral) | | | | Malignancies at | [facility] | | | | | [address] | [place], [place] | | | | | [address] | [address] | | | | | [facility] Mailcode: | [phone] | | | | | [address] | | | | | | [place], | | | | | | [place] [address] | | | | | | [phone] | | | +--------+ + + + [...] [place] | | | | | | [address] | | | | | | [phone] | | | | | | | | +--------+---------+ + + + documented as of this encounter Visit Diagnoses Not on filedocumented in this encounter"
--- OUTSIDE RECORDS SUMMARY | ~2019-05-17 | XMS | Encounter Summary ---
Demographics + + + | Address | [address] | | | [place] [address] | + + + | Home Phone [...] Providers + +------+ + | Care Pattern Changer And Repairer Name | Role | Phone | + +------+ + | Zayda Hinton | PCP | | + +------+ + Encounter Details +--------+ + + + + | Date | Type | Department | Care Team | Description | +--------+ + + + + | 01/28/ | Pharmacy | Specialty Pharmacy | | | | 2015 | Visit | Services [address] | | | | | | [address] | | | | | | [place], [place] | | | | | | [address] | | | | | | [phone] | | | +--------+ + + + [...] Rd | | | | | | [place], [place] | | | | | | [address] | | | | | | [phone] | | | | | | | | +--------+---------+ + + + documented as of this encounter Visit Diagnoses Not on filedocumented in this encounter"
--- OUTSIDE RECORDS SUMMARY | ~2019-05-17 | XMS | Encounter Summary ---
Demographics + + + | Address | [address] | | | [place] [address] | + + + | Home Phone [...] Team Providers + +------+ + | Care Rebeamer Name | Role | Phone | + [...] | | | | Christian Barry | [place], [place] | | | | | [address] | [address] | | | | | [address] Mailcode: | [phone] | | | | | [address] | | | | | | [place], | | | | | | [place] [address] | | | | | | [phone] | | | +--------+ + + + [...] 2018 | Visit | Malignancy | [address] [facility] | | | | | | [address] | | | | | | [place], [place] | | | | | | [address] | | | | | | [phone] | | | | | | | | +--------+---------+ + + + documented as of this encounter Visit Diagnoses Not on filedocumented in this encounter"
--- OUTSIDE RECORDS SUMMARY | ~2019-05-17 | XMS | Encounter Summary ---
Demographics + + + | Address | [address] | | | [place] [address] | + + + | Home Phone [...] Providers + +------+ + | Care Supervisor Pipelines Name | Role | Phone | + +------+ + | Zayda Hinton | PCP | | + +------+ + Encounter Details +--------+ + + + + | Date | Type | Department | Care Team | Description | +--------+ + + + + | 01/25/ | Pharmacy | Specialty Pharmacy | | | | 2015 | Visit | Services [address] | | | | | | [address] | | | | | | [place], [place] | | | | | | [address] | | | | | | [phone] | | | +--------+ + + + [...] Rd | | | | | | [place], [place] | | | | | | [address] | | | | | | [phone] | | | | | | | | +--------+---------+ + + + documented as of this encounter Visit Diagnoses Not on filedocumented in this encounter"
--- OUTSIDE RECORDS SUMMARY | ~2019-05-17 | XMS | Encounter Summary ---
Demographics + + + | Address | [address] | | | [place] [address] | + + + | Home Phone [...] Providers + +------+ + | Care Water Superintendent Name | Role | Phone | [...] | | | | Christian Barry | [place], [place] | | | | | [address] | [address] | | | | | [address] Mailcode: | [phone] | | | | | [facility] | | | | | | [place], | | | | | | [place] [address] | | | | | | [phone] | | | +--------+ + + + [...] Rd | | | | | | [place] | | | | | | [address] | | | | | | [phone] | | | | | | | | +--------+---------+ + + + documented as of this encounter Visit Diagnoses Not on filedocumented in this encounter"
--- OUTSIDE RECORDS SUMMARY | ~2019-05-17 | XMS | Encounter Summary ---
Demographics + + + | Address | [address] | | | [place] [address] | + + + | Home Phone [...] Team Providers + +------+ + | Care Bean Sorter Name | Role | Phone | + +------+ + | No Pcp Per Patient | PCP | Unavailable | + +------+ + Reason for Visit +--------+ + | Reason | Comments | +--------+ + | Preop | | +--------+ + Encounter Details +--------+---------+ + + + | Date | Type | Department | Care Team | Description | +--------+---------+ + + + | 09/06/ | Office | Orthopaedics at | Kel Das, | 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 | Visit | [facility] [address] | Janette Ruiz PA-C [address] | leukemia in | | | | [address] | [facility] | remission (HCC) | | | | Mailcode: PV430 | [place], [place] | (Primary Dx); | | | | [facility] | [address] | Avascular necrosis | | | | [place], [place] | [phone] | of bone of left hip | | | | [address] | | (HCC) | | | | [phone] | | | +--------+---------+ + + + [...] Temperature | 36.9 C (98.4 F) | 09/06/2016 9:23 AM | | | | | PST [...] + + | Weight | 83.9 kg (185 lb) | 09/06/2016 9:23 AM | | | | | PST | | + + + + + | Height | 190.5 cm (6' 3") | 09/06/2016 9:23 AM | | | | | PST | | + + + + + | Body Mass Index | 23.12 | 09/06/2016 9:23 AM | | | | | PST | | + + + + + documented in this encounter Progress Notes Janette Claire PA-C - 09/06/2016 9:15 AM PSTFormatting of this note might be diff erent from the original. 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 male who is here today for a preoperati ve visit. He has a history of avascular necrosis in the left hip causing significant left hi p pain. He is taking oxycodone and oxycontin for pain. No change in orthopedic history since last visit. He denies current cardiac or pulmonary issues, diabetes, sleep apnea, h/o blood clots or bl eeding disorders, anticoagulation therapy, h/o MRSA, and latex allergy. Review of Systems: Patient is in fair health, denies recent health changes. No recent F/C/V , SOB, CP, WALTERS, dizziness. He has had some increased nausea, controlled with zofran PMH: Past Medical History: Diagnosis Date Gout Malignant neoplasm (HCC) Pancytopenia due to chemotherapy (HCC) 06/03/2015 Parotiditis Pericarditis Renal insufficiency 07/02/2015 PSH: Past Surgical History Procedure Laterality Date Appendectomy Closed arm reduction Left 2006 in basketball game SOCIAL HISTORY: Non Smoker MEDICATIONS: Outpatient Encounter Prescriptions as of 09/06/2016 Medication Sig Dispense Refill acyclovir 800 mg oral tablet Take 1 tablet by mouth two times daily. 60 tablet 5 ALPRAZolam 0.5 mg oral tablet Take 1 tablet by mouth three times daily as needed. Indic ations: Anxiety 90 tablet 0 amLODIPine 5 mg oral tablet Take one-half tablet by mouth once daily. 30 tablet 2 beclomethasone 1 mg/mL oral suspension (compound) Take 1 mL by mouth four times daily. Shake well and refrigerate. Please give 24 hours notice to compound medication. Discard afte r 14 days. 250 mL 5 omeprazole 20 mg oral capsule,delayed release(DR/EC) Take 1 capsule by mouth before babak akfast. 30 capsule 11 ondansetron 8 mg oral tablet Take 1 tablet by mouth every twelve hours as needed. 30 ta blet 2 oxyCODONE CR 20 mg oral tablet,oral only,ext.rel.12 hr Take 1 tablet by mouth every twe lve hours. Indications: Chronic Pain 60 tablet 0 oxyCODONE, immediate release, 5 mg oral tablet Take 1 to 2 tablets by mouth every six h ours as needed for moderate pain or severe pain. 120 tablet 0 [DISCONTINUED] tacrolimus 0.5 mg oral capsule 08/31/16: Take 2 capsules (1 mg) by mouth twice daily. 120 capsule 3 tacrolimus 1 mg oral capsule Take 1 capsule by mouth two times daily. Indications: prev ention of GvHD 60 capsule 5 triamcinolone acetonide 0.1 % topical ointment Apply thin film to affected areas twice daily. 454 g 2 trimethoprim-sulfamethoxazole 160-800 mg oral tablet Take 1 tablet by mouth twice daily (every Sunday and ). 16 tablet 2 No facility-administered encounter medications on file as of 09/06/2016. ALLERGIES: Allergies Allergen Reactions Chlorhexidine Towelette Rash PAVAN cloths - ok to use Chloraprep for dresssing change per pt. OBJECTIVE: General: No acute distress Temp (Src) 36.9 C (98.4 F) (Oral) | Ht 1.905 m (6' 3") | Wt 83.9 kg (185 lb) | BMI 23.1 2 kg/(m^2) CARDIAC: RRR, no obvious murmur PULM: CTA, no rhonchi, rales, wheeze MUSCULOSKELETAL: Left hip without prior incision, calf soft and non tender, active ankle DF /PF. Sensation intact SKIN: Surgical site is clear of any skin irritation or rash. Previous incision: none. ASSESSMENT/PLAN: PARQ session was held, procedure and risks were discussed in detail, and all questions were answered. Patient has freely signed the consent form for surgery. -Advised the patient to be NPO the night before surgery. -Medication and allergy list reviewed. -Patient informed to stop Aspirin, NSAIDS, blood thinners, steroids, or fosamax. Tylenol ok for pain. -Instructed patient to take all other medications the day of surgery as recommended by [facility] clinic. -Patient has [facility] appointment today following this visit. -Reviewed check-in location for morning of surgery. [facility]. -Patient informed of follow up visit on 09/20/16 Instructed patient to contact the clinic with any further questions or concerns prior to douglass rgery. 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
--- OUTSIDE RECORDS SUMMARY | ~2019-05-17 | XMS | Encounter Summary ---
Demographics + + + | Address | [address] | | | [place] [address] | + + + | Home Phone [...] Team Providers + +------+ + | Care Librarian Head Name | Role | Phone | [...] | | | | | achieved | [place], [place] | [facility] | | | | | remission | [address] | [facility] | | | | | | Phone: | Asha | | | | | Procedures | [phone] | [place], [place] | | | | | Post BMT | Fax: | [address] | | | | | Auth to | [phone] | Phone: | | | | | included | | [phone] | | | | | facility, | | Fax: | | | | | diagnostics, | | [phone] | | | | | office | | | | | | | visits and | | | | | | | surgery | | | +--------+---------+ + + + + Encounter Details +--------+---------+ + + + | Date | Type | Department | Care Team | Description | +--------+---------+ + + + | 02/15/ | Office | Center for | Yari Gracia MD | 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 | | | | Malignancies at | [address] | remission (HCC) | | | | [facility] | [place], [place] | (Primary Dx); S/P | | | | [address] | [address] | allogeneic bone | | | | [address] Mailcode: | [phone] | marrow transplant | | | | [facility] | | ([facility]) | | | | [place], | | | | | | [place] [address] | | | | | | [phone] | | | +--------+---------+ + + + [...] a month. Check out at the front office manager today and make your next appointments. You can also call the flaco whitehead at [phone]. If you have any questions, or if you need prescription refills, or are experiencing any sym ptoms or side effects please call our brick off bearer at [phone] documented in this encounter Progress Notes Yari Garcia MD - 02/15/2017 10:25 AM PDT 02/15/17 - 539 days post transplant [facility] Primary CHM MD: Yari Garcia MD Primary Oncologist: Yari Garcia MD Diagnosis: AMML, primary refractory Transplant Date: 08/27/15 Donor: [id number] (DPB1 permissive antigen mismatch, male, [id number]) Identifying Data: Khurram Kelly is a 26 [...] his L ankle. He was evaluated at [facility] on 06/[address] angiogram negative [...] acute myelomonocytic leukemia. He was referred to [facility] for further evaluation and man agement of his newly dx'd AML. Pt was admitted to [facility] on 05/26/15. Peripheral blood was sent [...] CD34, variable CD56, variable CD117, and dim WZ121-muten mickey; promonocyte immunophenotype (70% by flow): CD11b, [...] follow up after returning h ome to [place]. He is doing well overall - exercising [...] indicated providing peripheral counts remain stable 2. 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 He initially responded but flared during taper. He also developed low-level nausea and abd discomfort concerning for GvHD, emp irically treated with oral non-absorbables with resolution. - He had tapered prednisone to 10 mg po daily when he developed a rash for which he was see n in the ED in [place] in late 01/21. Prednisone was increased back [...] candidiasis His most recent immune reconstitution panel [facility] 08/31/16 showed normal total T cells [...] friendships with other young survivors. 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 7. Follow up --> F/u at [facility] in 4 weeks, sooner if interval complications. Yari Garcia MD, MS Condominium Property Managerincome tax analyst [facility] [address] [place] [address] documented in this enc ounter Plan of [...] 2019 | Visit | Malignancy | [address] | | | | | | [address] | | | | | | [place], [place] | | | | | | [address] | | | | | | [phone] | | | | | | | [...] ABELARDOAM | [address] | [place], [place] | | | RUTHIE CARTER OF CARE | [address] | [address] | | | TESTS | | | [...] - MACARIO | [address] | [place], [place] | | | EMMA POINT OF CARE | [address] | [address] | | | TESTS | | | [...] + | YESSICA LOZA | [address] | [place] [address] | | | SERVICES, CORE | PARK [...] + + + | Test Performed by [facility]. Test performed by immunoassay using Blanton | [facility] | | Radio Division Lieutenant i2000. . Samples for analysis of Tacrolimus [...] | + + + + + | [facility] | [address] | [place] [address] | | | SPECIAL KOLE | WALLY [...] [facility] | [address] | [place] [address] | | | SERVICES, CORE | PARK [...] YESSICA LOZA | [address] | [place] [address] | | | KOLE, INDRA | WALLY [...] [facility] | [address] | [place] [address] | | | SERVICES, CORE | [address] | | | + + + + + MAGNESIUM, PLASMA (03/15/2017 9:09 AM PDT) + +-------+ + + + | Component | Value | Ref Range | Performed | Pathologist | | | | | At | Signature | + +-------+ + + + | MAGNESIUM,P | 2.2 | 1.6 - 2.6 mg/dL | [facility] | | | LASMA | | [...] [facility] | [address] | [place] [address] | | | KOLE, INDRA | WALLY [...]
--- OUTSIDE RECORDS SUMMARY | ~2019-05-17 | XMS | Encounter Summary ---
Demographics + + + | Address | [address] | | | [place] [address] | + + + | Home [...] Providers + +------+ + | Care Facility Service Associate Name | Role | Phone | [...] | | | | | remission | [address] | Branch | | | | | | Phone: | Pavilion | | | | | Procedures | [phone] | [place], [place] | | | | | Post BMT | Fax: | [address] | | | | | Auth to | [phone] | Phone: | | | | | included | | [phone] | | | | | facility, | | Fax: | | | | | diagnostics, | | [phone] | | | | | office | | | | | | | visits and | | | | | | | surgery | | | +--------+---------+ + + + + Encounter Details +--------+ + + + + | Date | Type | Department | Care Team | Description | +--------+ + + + + | 03/15/ | Diagnostic | Center for | | Lab Draw | | 2017 | Visit | Hematologic | | | | | | Malignancies at | | | | | | [facility] | | | | | | [address] | | | | | | Wally Burger Mailcode: | | | | | | [facility] | | | | | | [place], | | | | | | [place] [address] | | | | | | [phone] | | | +--------+ + + + [...] of this encounter Progress Lincoln Austin - 03/15/2017 8:45 AM PDTRight AC accessed with a [address] | | | | | | [place], [place] | | | | | | [address] | | | | | | [phone] | | | | | | | | +--------+---------+ + + + documented as of this encounter Procedures + +--------+ + + + | Procedure Name | Priori | Date/Time | Associated Diagnosis | Comments | | | ty | | | | + +--------+ + + + | CMP, POC (BMP+LFT) | Routin | 03/15/2017 | Acute | Results for this | | | e | 9:46 AM | myelomonocytic | procedure are in the | | | | PDT | leukemia in | results section. | | | | | remission (HCC) | | + +--------+ + + + | CBC+DIFF,POC | Routin | 03/15/2017 | Acute | Results for this | | | e | 9:27 AM | myelomonocytic | procedure are in the | | | | PDT | leukemia in | results section. | | | | | remission (HCC) | | + +--------+ + + + | TACROLIMUS, WHOLE | Routin | 03/15/2017 | Acute | Results for this | | BLOOD | e | 9:09 AM | myelomonocytic | procedure are in the | | | | PDT | leukemia in | results section. | | | | | remission (HCC) | | + +--------+ + + + | PHOSPHORUS, PLASMA | Routin | 03/15/2017 | Acute | Results for this | | | e | 9:09 AM | myelomonocytic | procedure are in the | | | | PDT | leukemia in | results section. | | | | | remission (HCC) | | + +--------+ + + + | BILIRUBIN DIRECT | Routin | 03/15/2017 | Acute | Results for this | | | e | 9:09 AM | myelomonocytic | procedure are in the | | | | PDT | leukemia in | results section. | | | | | remission (HCC) | | + +--------+ + + + | URIC ACID, PLASMA | Routin | 03/15/2017 | Acute | Results for this | | | e | 9:09 AM | myelomonocytic | procedure are in the | | | | PDT | leukemia in | results section. | | | | | remission (HCC) | | + +--------+ + + + | MAGNESIUM, PLASMA | Routin | 03/15/2017 | Acute | Results for this | | | e | 9:09 AM | myelomonocytic | procedure are in the | | | | PDT | leukemia in | results section. | | | | | remission (HCC) | | + +--------+ + + + | LDH TOTAL, PLASMA | Routin | 03/15/2017 | Acute | Results for this | | | e | 9:09 AM | myelomonocytic | procedure are in the | | | | PDT | leukemia in | results section. | | | | | remission (HCC) | | + +--------+ + + + documented in this encounter Results CMP, POC (BMP+LFT) (03/15/2017 [...] | | | POC | | | [place] | | [...] SORTO | [address] | [place], [place] | | | EMMA POINT OF CARE | [address] | [address] | | | TESTS | | | | + + + + + CBC+PHIL GRIJALVA (03/15/2017 9:27 AM PDT) + + + [...] MACARIO | [address] | [place], [place] | | | RUTHIE CARTER OF CARE | [address] | [address] | | | TESTS | | | [...] + + + + + | [facility] | [address] | [place] [address] | | | SERVICES, CORE | WALLY [...] + + + | Test Performed by [facility]. Test performed by immunoassay using Blanton | [facility] | | Senior Mechanical Engineer [email or web address]. . Samples for analysis of Tacrolimus [...] | + + + + + | [facility] | 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
--- OUTSIDE RECORDS SUMMARY | ~2019-05-17 | XMS | Encounter Summary ---
Demographics + + + | Address | [address] | | | [place] [address] | + + + | Home Phone [...] Team Providers + +------+ + | Care Ironworker Helper Shop Name | Role | Phone | [...] | | | | | achieved | [place], [place] | [facility] | | | | | remission | [address] | [place] | | | | | | Phone: | Asha | | | | | Procedures | [phone] | [place], [place] | | | | | Post BMT | Fax: | [address] | | | | | Auth to | [phone] | Phone: | | | | | included | | [phone] | | | | | facility, | | Fax: | | | | | diagnostics, | | [phone] | | | | | office | [...] | | | | Christian Barry | [place], [place] | transplant (HCC) | | | | [address] | [address] | (Primary Dx) | | | | De[address] Burger Mailcode: | [phone] | | | | | [facility] [address] | | | | | | [place], | | | | | | [place] [address] | | | | | | [phone] | | | +--------+---------+ + + + [...] every two weeks. Check out at the front load trash truck driver today and make your next appointments. You can also call the flaco whitehead at [phone]. We spoke to GI and they are hoping to get you scheduled Sunday or Sunday next week You can also call them at [phone] Medications You should resume the beclamethasone--when you can 20mg alternate with 10 mg for the Prednisone Ambien for sleep Your refills were sent to the [facility] pharmacy If you have any questions, or if you need prescription refills, or are experiencing any sym ptoms or side effects please call our inserting operator at [phone] documented in this encounter Progress Notes Yari Garcia MD - 10/12/2016 11:55 AM PDT 10/12/16 [facility] Primary CHM MD: Yari Garcia MD Primary Oncologist: Yari Garcia MD Diagnosis: AMML, primary refractory Transplant Date: 08/27/15 Donor: MM URD (DPB1 permissive antigen mismatch, male, [id number]) Identifying Data: Khurram Kelly is a 26 [...] his L ankle. He was evaluated at [facility] ED on 06/[address] angiogram negative [...] CD34, variable CD56, variable CD117, and dim OC737-clckf mickey; promonocyte immunophenotype (70% by flow): CD11b, [...] CREATININE PLASMA (LAB) 10/12/2016 0.73 EGFR - BENINESE 10/12/2016 >60 EGFR NON -BENINESE 10/12/2016 >60 SODIUM, PLASMA (LAB) 10/12/2016 138 [...] he was seen in the ED in [place] in late 01/21 . 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
--- OUTSIDE RECORDS SUMMARY | ~2019-05-17 | XMS | Encounter Summary ---
Demographics + + + | Address | [address] | | | [place] [address] | + + + | Home Phone [...] Providers + +------+ + | Care Rubber Worker Name | Role | Phone | [...] marrow transplant | | | | at [facility] 3rd Floor | | ([facility]) | | | | [address] | | | | | | [place], | | | | | | [place] [address] | | | | | | [phone] | | | +--------+------+ + + + [...] 2019 | Visit | Malignancy | [address] [facility] | | | | | | [address] | | | | | | [place], [place] | | | | | | [address] | | | | | | [phone] | | | | | | | [...] [facility]) | results section. | + +--------+ + + + | CBC, WITH | Urgent | 10/02/2016 | S/P allogeneic | Results for this | | DIFFERENTIAL | | 8:33 AM | bone marrow | procedure are in the | | | | PDT | transplant ([facility]) | results section. | + +--------+ + + + | COMPLETE METABOLIC | Urgent | 10/02/2016 | S/P allogeneic | Results for this | | SET | | 8:33 AM | bone marrow | procedure are in the | | (NA,K,CL,CO2,BUN,CRE | | PDT | transplant ([facility]) | results section. | | AT,GLUC,CA,AST,ALT,B | [...] [facility]) | results section. | + +--------+ + + + | PHOSPHORUS, PLASMA | Urgent | 10/02/2016 | S/P allogeneic | Results for this | | | | 8:33 AM | bone marrow | procedure are in the | | | | PDT | transplant ([facility]) | results section. | + +--------+ + + + | BILIRUBIN DIRECT | Urgent | 10/02/2016 | S/P allogeneic | Results for this | | | | 8:33 AM | bone marrow | procedure are in the | | | | PDT | transplant ([facility]) | results section. | + +--------+ + + + | URIC ACID, PLASMA | Urgent | 10/02/2016 | S/P allogeneic | Results for this | | | | 8:33 AM | bone marrow | procedure are in the | | | | PDT | transplant ([facility]) | results section. | + +--------+ + + + | MAGNESIUM, PLASMA | Urgent | 10/02/2016 | S/P allogeneic | Results for this | | | | 8:33 AM | bone marrow | procedure are in the | | | | PDT | transplant ([facility]) | results section. | + +--------+ + + + | LDH TOTAL, PLASMA | Urgent | 10/02/2016 | S/P allogeneic | Results for this | | | | 8:33 AM | bone marrow | procedure are in the | | | | PDT | transplant ([facility]) | results section. | + +--------+ + [...] | + + + + + | [facility] | [address] | [place] [address] | | | SERVICES, CORE | WALLY [...] | Test performed by immunoassay using Blanton Composition Worker i2000. . | [facility] | | Samples [...] [facility] | [address] | [place] [address] | | | SERVICES, SPECIAL | PARK [...] | + + + + + | [facility] | [address] | [place] [address] | | | SERVICES, CORE | WALLY [...] [facility] | [address] | [place] [address] | | | SERVICES, CORE | PARK [...] | + + + + + | [facility] | [address] | [place] [address] | | | SERVICES, CORE | WALLY [...] [facility] | [address] | [place] [address] | | | KOLE, INDRA | WALLY [...] [facility] | [address] | [place] [address] | | | SERVICES, CORE | PARK [...] | | | LABORATORY | | | [place] | | | SERVICES, | | | [...] + + + + + | [facility] | [address] | [place] [address] | | | SERVICES, CORE | [address] | | | + + + + + documented in this encounter Visit Diagnoses + + | Diagnosis | + + | 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
--- OUTSIDE RECORDS SUMMARY | ~2019-05-17 | XMS | Encounter Summary ---
Demographics + + + | Address | [address] | | | [place] [address] | + + + | Home Phone [...] Providers + +------+ + | Care Sales Planning Coordinator Name | Role | Phone | + +------+ + | Zayda Hinton | PCP | | + +------+ + Encounter Details +--------+ + + + + | Date | Type | Department | Care Team | Description | +--------+ + + + + | 02/09/ | Pharmacy | Specialty Pharmacy | | | | 2015 | Visit | Services [address] | | | | | [address] | | | | | | [place], [place] | | | | | | [address] | | | | | | [phone] | | | +--------+ + + + [...] Rd | | | | | | [place], [place] | | | | | | [address] | | | | | | [phone] | | | | | | | | +--------+---------+ + + + documented as of this encounter Visit Diagnoses Not on filedocumented in this encounter"
--- OUTSIDE RECORDS SUMMARY | ~2019-05-17 | XMS | Encounter Summary ---
Demographics + + + | Address | [address] | | | [place] [address] | + + + | Home Phone [...] Team Providers + +------+ + | Care Helicopter Officer Name | Role | Phone | [...] | | | | Christian Barry | [place], [place] | | | | | [address] | [address] | | | | | [address] Mailcode: | [phone] | | | | | [facility] | | | | | | [place], | | | | | | [place] [address] | | | | | | [phone] | | | +--------+ + + + [...] Rd | | | | | | [place], [place] | | | | | | [address] | | | | | | [phone] | | | | | | | | +--------+---------+ + + + documented as of this encounter Visit Diagnoses Not on filedocumented in this encounter"
--- OUTSIDE RECORDS SUMMARY | ~2019-05-17 | XMS | Encounter Summary ---
Demographics + + + | Address | [address] | | | [place] [address] | + + + | Home Phone [...] Team Providers + +------+ + | Care Logging Equipment Operator Name | Role | Phone | [...] 11/10/ | Refill | Center for | Kyung, | Refill Request | | 2016 | | Hematologic | [address] | | | | | Malignancies at [facility] | [address] | | | | | [address] | Rd [place], [place] | | | | | Debi Burger Mailcode: | [address] | | | | | [facility] | [phone] | | | | | [place], | | | | | | [place] [address] | | | | | | [phone] | | | +--------+--------+ + + + [...] Rd | | | | | | [facility] | | | | | | [address] | | | | | | [phone] | | | | | | | | +--------+---------+ + + + documented as of this encounter Visit Diagnoses Not on filedocumented in this encounter"
--- OUTSIDE RECORDS SUMMARY | ~2019-05-17 | XMS | Encounter Summary ---
Demographics + + + | Address | [address] | | | [place] [address] | + + + | Home Phone [...] Team Providers + +------+ + | Care Umbrella Frame Maker Name | Role | Phone | + +------+ + | Zayda Hinton | PCP | | + +------+ + Encounter Details +--------+ + + + + | Date | Type | Department | Care Team | Description | +--------+ + + + + | 05/14/ | Telephone | Center for | Yari Garcia MD | | | 2019 | | Hematologic | [address] | | | | | Malignancies at [facility] | [address] | | | | | [address] | [place], [place] | | | | | Mailcode: [place] | [address] | | | | | for Health and | [phone] | | | | | [address] [address] | | | | | | [place], [place] | | | | | | [address] | | | | | | [phone] | | | +--------+ + + + [...] 2019 | Visit | Malignancy | [address] [facility] | | | | | | [address] | | | | | | [place], [place] | | | | | | [address] | | | | | | [phone] | | | | | | | | +--------+---------+ + + + documented as of this encounter Results [facility] - COMPLETE METABOLIC SET (05/15/2019 11:53 AM [...] | | | LABORATORY | | | [place] | | | SERVICES, | | | [...] + + | [facility] | [address] | [place] [address] | | | SERVICES, [facility] | | | | | HEALTH [...] + | [facility] | [address] | [place] [address] | | | SERVICES, [facility] | | | | | HEALTH + HEALING | | | | + + + + + documented in this encounter Visit Diagnoses + + | Diagnosis | + + | 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
--- OUTSIDE RECORDS SUMMARY | ~2019-05-17 | XMS | Encounter Summary ---
Demographics + + + | Address | [address] | | | [place] [address] | + + + | Home Phone [...] Team Providers + +------+ + | Care Explosives Truck Driver Name | Role | Phone | + +------+ + | Pending Pcp Addition | PCP | Unavailable | + +------+ + Reason for Referral Consultation (Urgent) +--------+ + + + + [...] | Required | | versus host | [address] | ,PhD 1072 | | | | | disease) | [address] | [address] | | | | | ([facility]) | [address] | [address] | | | | | Procedures | [place], [place] | [place], [place] | | | | | CONSULT TO | [address] | [address] | | | | | [facility] | Phone: | Phone: | | | | | SURGERY | [phone] | [phone] | | | | | | Fax: | Fax: | | | | | | [phone] | [phone] | +--------+ + + + + + Reason for Visit Benefits Check (Routine) [...] | | | | | | | [address] | | | | | | | [address] | | | | | | | [place], | | | | | | | [place] | | | | | | | [address] | | | | | | | Phone: | | | | | | | [phone] | | | | | | | Fax: | | | | | | | [phone] | +--------+--------+ + + + + Encounter Details +--------+---------+ + + + | Date | Type | Department | Care Team | Description | +--------+---------+ + + + | 02/06/ | Office | Center for | Yari Garcia MD | GVHD (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 | | 2016 | Visit | Hematologic | [address] [facility] | host disease) (HCC) | | | | Malignancies at | [address] | (Primary Dx) | | | | Christian Barry | [place], [place] | | | | | [address] | [address] | | | | | [address] Mailcode: | [phone] | | | | | [facility] | | | | | | [place], | | | | | | [place] [address] | | | | | | [phone] | | | +--------+---------+ + + + [...] + + + | Blood Pressure | 145/89 | 02/07/2016 1:34 PM | | | | | PDT | | + + + + + | Pulse | 90 | 02/07/2016 1:34 PM | | | | | PDT | | + + + + + | Temperature | 37.1 C (98.7 F) | 02/07/2016 1:34 PM | | | | | PDT | | + + + + + | Respiratory Rate | 18 | 02/07/2016 1:34 PM | | | | | PDT | | + + + + + | Oxygen Saturation | 100% | 02/07/2016 1:34 PM | | | | | PDT | | + + + + + | Inhaled Oxygen | - | - | | | Concentration | | | | + + + + + | Weight | 87.7 kg (193 lb 5.5 | 02/07/2016 1:34 PM | | | | oz) | PDT | | + + + + + | Height | - | - | | + + + + + | Body Mass Index | 24.55 | 01/25/2016 8:24 AM | | | | | PDT | | + + + + + documented in this encounter Patient Instructions Patient Instructions Christina Hernandez RN - 02/07/2016 3:34 PM PDTDr. Jose is going to refer y ou to dermatology for consult and PUVA therapy for your skin GVD There are also 3 prescriptions for you to picking tech. Please schedule lab, infusion and an office visit with [facility] for next week. You will start cycle 5 on February 20, that same week you will get a bone marrow biopsy, ch est xray and PFT (lung function test) Those appointments will be scheduled in the next day or two. Check out at the front end engineer today and make your next appointments. You can also call the [facility] at [phone]. If you have any questions, or if you need prescription refills, or are experiencing any sym ptoms or side effects please call our telegraph service clerk at [phone] documented in this encounter Progress Notes Yari Garcia MD - 02/07/2016 3:14 PM PDT 165 days post transplant 02/07/16 [facility] Primary CHM MD: Yari Garcia MD Primary Oncologist: Yari Garcia MD Diagnosis: AMML, primary refractory Transplant Date: 08/27/15 Donor: MM URD (DPB1 permissive antigen mismatch, male, [id number]) Identifying Data: Khurram Kelly is a 25 [...] his L ankle. He was evaluated at [facility] ED on 06/[address] angiogram negative [...] CD34, variable CD56, variable CD117, and dim AK061-mbetl mickey; promonocyte immunophenotype (70% by flow): CD11b, [...] durin g taper. He is currently day +165 s/p transplant, day 15, c4 of azacitidine and returns to clinic to day for scheduled follow-up. Interim History: Khurram returns to clinic today and is feeling ok - though upset by the r ecent flair in his rash that occurred on his return home to [facility]. He is frustrated by the duration of being sick and feels ready to be consistently getting better. Developed rash very quickly over 2-3 days - no known sun exposure/inciting agent. Rash is somewhat itchy and has been spreading. He did not have triamcinolone cream at home, so was seen in ER, had prednisone increased back to 20 mg daily and then returned home. No fevers/chills, but has been feeling more run down. Lingering dry cough has persisted fo r several months and seems to be slowly improving. No dyspnea, no chest pain. A complete Review of Systems was completed [...] akfast. predniSONE 10 mg oral tablet Take 1 tablet by mouth once daily. PREDNISONE ORAL Take by mouth. 10 mg by mouth every other day alternating with 5 mg by mouth every other day tacrolimus [...] for dresssing change per pt. Filed Vitals: 02/07/2016 1:34 PM Weight: 87.7 kg (193 lb 5.5 oz) BP: 145/89 Pulse: 90 Temp: 37.1 C (98.7 F) TempSrc: Oral Resp: 18 SpO2: 100% PainSc: 0 - Zero BMI: 24.55 kg/(m^2) Physical Exam Constitutional: He is well-developed, [...] Normal range of motion. He exhibits edema. Trace peripheral edema. Lymphadenopathy: He has no cervical adenopathy. Skin: Skin is warm and dry. Rash noted. He is not diaphoretic. There is erythema. No pallor . Rash over chest, upper back, forearms, upper legs, appx 35% BSA. Lab Results Component Value Date WBC 6.4 02/07/2016 HB 13.0 02/07/2016 HCT 37.8 02/07/2016 PLT 77 02/07/2016 MCV 103.6 02/07/2016 RDW 60.3 11/22/2015 Lab Results Component Value Date BICARB 27 02/07/2016 TBILI 0.6 02/07/2016 CA 9.7 02/07/2016 CL 101 02/07/2016 CR 0.9 02/07/2016 GLU 97 02/07/2016 AP 84 02/07/2016 TP 7.1 02/07/2016 BUN 13 02/07/2016 ALB 4.0 02/07/2016 AST 59* 02/07/2016 NA 139 02/07/2016 K 3.2* 02/07/2016 ALT 145* 02/07/2016 Assessment/Plan: 1. 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 His most recent marrow studies [facility] 11/22/15 showed a hypocellular marrow (patchy 15%) with trilineage hematopoiesis and no m orphologic and immunologic evidence of acute leukemia. Karyotype 46,XY[19]. VNTR showed no d etectable host cells. 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 He began maintenance azacitidine on 11/01/15, currently c4, day 1 5. Peripheral blood counts WNL aside from fluctuating thrombocytopenia. Continues with no ev idence of disease by peripheral smear. 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 Presented to ER locally in [place] 02/04/16 with progressive itchy rash. Sta rted back on 20 mg daily of prednisone --> continue prednisone 20 mg daily until rash starts to improve, then we will taper --> urgent referral to Dr. Beaulieu in clinic for consideration of PUVA/UVB to avoid ongoing u se of high levels of immunosuppression given VERY high risk AML and high risk for post-trans plant relapse --> continue tacrolimus 0.5 mg bid --> continue oral non-absorbables --> continue topical triamcinolone 3. Infectious Disease: Afebrile without localizing s/s [...] continue acyclovir, monthly pentamidine (due 01/28/16) --> due to CMV reactivation prior to day +100, monitor PCRs q1-2 weeks through day +270 Lab Results Component Value Date CMVQUANTPCR Undetected 02/07/2016 CMVQUANTPCR Undetected 01/31/2016 CMVQUANTPCR Undetected 01/24/2016 CMVQUANTPCR Undetected 01/13/2016 4. 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
--- OUTSIDE RECORDS SUMMARY | ~2019-05-17 | XMS | Encounter Summary ---
Demographics + + + | Address | [address] | | | [place] [address] | + + + | Home Phone [...] Team Providers + +------+ + | Care Labor Specialist Name | Role | Phone | [...] + + + + | 01/18/ | Telephone | Center for | Yari Garcia MD | Medication | | 2017 | | Hematologic | [address] | Adjustment (IST: | | | | Malignancies at | [address] | Tacrolimus) | | | | [facility] | [place], [place] | | | | | [address] [facility] | [address] | | | | | [facility] Mailcode: | [phone] | | | | | [facility] [place] | | | | | | [facility] [place], | | | | | | [place] [address] | | | | | | [phone] | | | +--------+ + + + [...] 2019 | Visit | Malignancy | [address] [facility] | | | | | | [address] | | | | | | [place] | | | | | | [address] | | | | | | [phone] | | | | | | | | +--------+---------+ + + + documented as of this encounter Visit Diagnoses Not on filedocumented in this encounter"
--- OUTSIDE RECORDS SUMMARY | ~2019-05-17 | XMS | Encounter Summary ---
Demographics + + + | Address | [address] | | | [place] [address] | + + + | Home Phone [...] Team Providers + +------+ + | Care Knitting Machine Operator Automatic Name | Role | Phone [...] | | | [address] Mailcode: | [place], [place] | | | | | [address] | [address] | | | | | [address] | [phone] | | | | | [place], [place] | | | | | | [address] | | | | | | [phone] | | | +--------+ + + + [...] | 2019 | Visit | Malignancy | [address] | | | | | [address] | | | | | | [place], [place] | | | | | | [address] | | | | | | [phone] | | | | | | | | +--------+---------+ + + + documented as of this encounter Visit Diagnoses Not on filedocumented in this encounter"
--- OUTSIDE RECORDS SUMMARY | ~2019-05-17 | XMS | Encounter Summary ---
Demographics + + + | Address | [address] | | | [place] [address] | + + + | Home Phone [...] Providers + +------+ + | Care Director Shopper Marketing Name | Role | Phone | [...] | | | | | achieved | [place], [place] | [facility] | | | | | remission | [address] | [place] | | | | | | Phone: | Pavilion | | | | | Procedures | [phone] | [place], [place] | | | | | MS EST | Fax: | [address] | | | | | PATIENT | [phone] | Phone: | | | | | LEVEL V | | [phone] | | | | | | | Fax: | | | | | | | [phone] | + +--------+ + + + + [...] | | [address] | [place], [place] | Electrolyte | | | | Mailcode: Center | [address] | abnormality; GVHD | | | | for Health and | [phone] | (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 host | | | | Healing, Building [address] | | disease) (HCC); | | | | [place], [place] | | Other fci | | | | [address] | | (current) drug | | | | [phone] | | therapy | +--------+---------+ + + [...] Donor: MMURD (DPB1 permissive antigen mismatch, male, [id number]) Identifying Data: Khurram Kelly is a 28 [...] his L ankle. He was evaluated at [facility] ED on 06/[address] angiogram negative [...] myelomonocytic leukemia. He was referred to [facility] for further evaluation and man agement of his newly dx'd AML. Pt was admitted to [facility] on 05/26/15. Peripheral blood was sent for [...] CD34, variable CD56, variable CD117, and dim LG686-gkmal mickey; promonocyte immunophenotype (70% by flow): CD11b, [...] by andra 10/21/18. 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 He was unable to afford both Restasis and fluoro metholone, therefore has been using only the steroid eye gtt. Feels it's helping his eyes bu t continues with c/o dry, irritated eyes. He is scheduled for f/u at [facility] this afternoon. Continues with c/o R hip pain. He is looking forward to hip replacement surgery and is sche duled to reconnect with Dr. Jeffers today as well. 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 He is [...] providing peripheral blood counts remain stable 2. Ovuzq-oy-Mseq Disease: - Hx early aGvHD [09/06/15] requiring prednisone 1 mg/kg. He initially responded but flared during taper. He also developed low-level nausea and abd discomfort concerning for GvHD, emp irically treated with oral non-absorbables with resolution. - He had tapered prednisone to 10 mg po daily when he developed a rash for which he was see n in the ED in [place] in late 01/21. Prednisone was increased back [...] concern for ENT process. - evaluated at [facility] on 10/21/18. Dx'd with ocular [...] weeks. --> continue HD vitD with repeat [id number] next visit --> repeat HgbA1c next visit with consideration for fasting labs if elevated 8. Follow up -->RTC to f/u with either Yari Garcia MD or me in 2 months, sooner prn ROLY Yanes [facility] [address] [facility] [address] Mailcode: [place] [address] documented in this enc ounter [...] 2018 | Visit | Malignancy | [address] [facility] | | | | | | [address] | | | | | | [place], [place] | | | | | | [address] | | | | | | [phone] | | | | | | | [...] YESSICA LOZA | [address] | [place] [address] | | | SERVICES, CORE | WALLY [...] unspecified site | + + | Other terminal operator (current) drug therapy | + + documented in this encounter"
--- OUTSIDE RECORDS SUMMARY | ~2019-05-17 | XMS | Encounter Summary ---
Demographics + + + | Address | [address] | | | [place] [address] | + + + | Home Phone [...] Team Providers + +------+ + | Care Warehouse Lead Name | Role | Phone | + +------+ + | Zayda Hinton | PCP | | + +------+ + Encounter Details +--------+ + + + + | Date | Type | Department | Care Team | Description | +--------+ + + + + | 08/17/ | Pharmacy | Specialty Pharmacy | | | | 2016 | Visit | Services [address] | | | | | | [address] | | | | | | [place], [place] | | | | | | [address] | | | | | | [phone] | | | +--------+ + + + [...] Rd | | | | | | [place], [place] | | | | | | [address] | | | | | | [phone] | | | | | | | | +--------+---------+ + + + documented as of this encounter Visit Diagnoses Not on filedocumented in this encounter"
--- OUTSIDE RECORDS SUMMARY | ~2019-05-17 | XMS | Encounter Summary ---
Demographics + + + | Address | [address] | | | [place] [address] | + + + | Home Phone [...] Team Providers + +------+ + | Care Liner Inserter Name | Role | Phone | + [...] + + | 12/19/ | Hospital | [facility] [address] | Lobo Jeffers, | | | 2019 - | Encounter | [address] | [address] [facility] | | | | | Joise Barry | [address] | | | 12/20/ | | [place], [place] | [place], [place] | | | 2019 | | [address] | [address] | | | | | [phone] | [phone] | | | | | | | [...] might be different f rom the original. [facility] OF [facility]THOPAEDICS & REHABILITATION INPATIENT HOSPITAL DISCHARGE SUMMARY & INTERDISCIPLINARY INSTRUCTIONS Patient: Khurram Kelly CSN: [id number] Admission Date: 12/19/2018 Discharge Date: 12/20/2018 Attending Physician: Lobo Jeffers MD PCP: JULIANA Nova Service: [facility] Orthopaedics & Rehabilitation Diagnoses Principal Final [...] they suspect your wound is infected. Call [facility] Orthopedics first at [phone]. Activity Weight bear as tolerated on both lower extremities. Restrictions: Posterior hip precautions on operative side (no hip flexion >90 degrees, no c rossing your legs, no turning your foot towards the middle of the body (internal rotation). Condition on Discharge Stable Follow-Up Appointments ORTHOPEDICS OUTPATIENT CLINIC: Future Appointments Provider Department Dept Phone Center 12/30/2018 9:35 AM Janette Das Orthopaedics at [facility] [phone] Orthopedics Follow up in 2 weeks (or as previously scheduled). Call [phone] to confirm or schedule this appointment. PCP: [...] Combine with 5 mg tabs Indications: GvHD [facility] Orthopaedic Service Pain Policy At the [...] administration instructions. - Call Orthopedic Clinic at [phone] if any persistent, localized swelling that does [...] and ask for the orthopaedic surgery resident medication coordinator. Additional Post-Op Instructions / What to Expect [...] has been our pleasure. Clover Baez MD [facility] [place] Department of Orthopaedics & Rehabilitation [address] [facility] Mail Code: OP31 [facility] [address] [email or web address] Pager: [phone] documented in this en counter Medications at [...] documented as of this encounter Progress Notes Clovre Baez MD - 12/20/2018 10:57 AM PDT [facility] DEPARTMENT OF ORTHOPAEDICS & REHABILITATION ORTHOPEDIC ONCOLOGY PROGRESS NOTE Patient: Khurarm Kelly Encounter Date: 12/20/2018 Admitted: 12/19/2018 Attending [...] 12/30/2018 9:35 AM Janette Das Orthopaedics at [facility] 01/20/2019 10:20 AM [facility] Arrive at: 10th Floor Hematology/Medical Oncology 01/21/2019 9:20 AM Sabrina Baez [facility] Cornea at [facility] The actual length of your visit is determined by services such as dilation, tests and procedures. 01/21/2019 3:00 PM Aud Flex Staff Otolaryngology Audiology Services at [facility] 01/21/2019 3:00 PM AUDIO REDD 2 Otolaryngology Audiology Services at [facility] 01/21/2019 3:30 PM Janette Manning Otolaryngology Otology Services at [facility] Subjective: Interval Hx: Feels well, no [...] [address] | | | | | | [place], [place] | | | | | | [address] | | | | | | [phone] | | | | | | | [...] [facility] | [address] | [place] [address] | | | SERVICES, CORE | PARK [...] | + + + + + | [employer] | [address] | [place] [address] | | | SERVICES, INDRA | WALLY [...] | | Attending Surgeon: Lobo Jeffers MD Commercial Construction Estimator(s): Jhony | | Mirza . Jeramie Roper [...] | | polyethylene liner.Indication: Patient is a -uibv-ssk male who has a history | | [...] | | repaired with 0 Vicryl in ynubyv-rd-vneeh fashion. The external rotators were not | [...] | DUANE/JOSHD: 12/19/2018 11:05:02DT: 12/19/2018 11:52:31Job #: [id number] | |gluteal fibers were returned to their [...] |LIZZY/JOE | | | | | | /[id number] | + + CAPILLARY BLOOD GLUCOSE (NO [...] [facility] | [address] | [place], [place] | | | [address]IE CARTER [facility] | [address] | [address] | | | TESTS | | | [...] hip arthroplasty Surgeon: | | | Zeyad Commercial Construction Estimator:Robert Murray Anesthesia:spinal with | | | general [...] [facility] | [address] | [place], [place] | | | [facility] | [address] | [address] | | | TESTS | | | [...] | | | | First dose on [facility] 12/19/18 at | | AM PDT | [...]
--- OUTSIDE RECORDS SUMMARY | ~2019-05-17 | XMS | Encounter Summary ---
Demographics + + + | Address | [address] | | | [place] [address] | + + + | Home Phone [...] Team Providers + +------+ + | Care Non Garment Sewing Machine Operator Name | Role | Phone | + +------+ + | Zayda Hinton | PCP | | + +------+ + Encounter Details +--------+ + + + + | Date | Type | Department | Care Team | Description | +--------+ + + + + | 10/10/ | Pharmacy | Specialty Pharmacy | | | | 2015 | Visit | Services [address] | | | | | | [address] | | | | | | [place], [place] | | | | | | [address] | | | | | | [phone] | | | +--------+ + + + [...] [place] | | | | | | [address] | | | | | | [phone] | | | | | | | | +--------+---------+ + + + documented as of this encounter Visit Diagnoses Not on filedocumented in this encounter"
--- OUTSIDE RECORDS SUMMARY | ~2019-05-17 | XMS | Encounter Summary ---
Demographics + + + | Address | [address] | | | [place] [address] | + + + | Home Phone [...] Team Providers + +------+ + | Care Library Services Coordinator Name | Role | Phone | + +------+ + | Zayda Hinton | PCP | | + +------+ + Encounter Details +--------+ + + + + | Date | Type | Department | Care Team | Description | +--------+ + + + + | 11/11/ | Pharmacy | Specialty Pharmacy | | | | 2015 | Visit | Services [address] | | | | | | [address] | | | | | | [place], [place] | | | | | | [address] | | | | | | [phone] | | | +--------+ + + + [...] Rd | | | | | | [place], [place] | | | | | | [address] | | | | | | [phone] | | | | | | | | +--------+---------+ + + + documented as of this encounter Visit Diagnoses Not on filedocumented in this encounter"
--- OUTSIDE RECORDS SUMMARY | ~2019-05-17 | XMS | Encounter Summary ---
Demographics + + + | Address | [address] | | | [place] [address] | + + + | Home Phone [...] Team Providers + +------+ + | Care Spindle Tester Name | Role | Phone | [...] | 2018 | | Hematologic | [address] [facility] | | | | | Malignancies at | [address] [facility] | | | | | [address] | [place], [place] | | | | | [address] [facility] | [address] | | | | | [facility] Mailcode: | [phone] | | | | | [facility] [place] | | | | | | [place], | | | | | | [place] [address] | | | | | | [phone] | | | +--------+--------+ + + + [...] Rd | | | | | | [place] | | | | | | [address] | | | | | | [phone] | | | | | | | | +--------+---------+ + + + documented as of this encounter Visit Diagnoses Not on filedocumented in this encounter"
--- OUTSIDE RECORDS SUMMARY | ~2019-05-17 | XMS | Encounter Summary ---
Demographics + + + | Address | [address] | | | [place] [address] | + + + | Home Phone [...] Team Providers + +------+ + | Care Fisheries Specialist Name | Role | Phone | + +------+ + | Zayda Hinton | PCP | | + +------+ + Encounter Details +--------+ + + + + | Date | Type | Department | Care Team | Description | +--------+ + + + + | 11/28/ | Pharmacy | Specialty Pharmacy | | | | 2015 | Visit | Services [address] | | | | | | [address] | | | | | | [place], [place] | | | | | | [address] | | | | | | [phone] | | | +--------+ + + + [...] 2019 | Visit | Malignancy | [address] | | | | | | [address] | | | | | | [place], [place] | | | | | | [address] | | | | | | [phone] | | | | | | | | +--------+---------+ + + + documented as of this encounter Visit Diagnoses Not on filedocumented in this encounter"
--- OUTSIDE RECORDS SUMMARY | ~2019-05-17 | XMS | Encounter Summary ---
Demographics + + + | Address | [address] | | | [place] [address] | + + + | Home Phone [...] Providers + +------+ + | Care Sales Enablement Analyst Name | Role | Phone | [...] | | | | | | [place], | | | | | | | [place] | | | | | | | [address] | | | | | | | Phone: | | | | | | | [phone] | | | | | | | Fax: | | | | | | | [phone] | +--------+--------+ + + + + Encounter [...] | | | | | | [place], | | | | | | [place] [address] | | | | | | [phone] | | | +--------+ + + + [...] for provider visit today with ORLY Yanes. WA=898/100, HR=74 upon arrival. BP checked manually, WI=219/85. He reports that he did no t [...] Rd | | | | | | [place], [place] | | | | | | [address] | | | | | | [phone] | | | | | | | [...] [facility] | [address] | [place], [place] | | | RUTHIE CARTER OF CARE | [address] | [address] | | | TESTS | | | [...] - MACARIO | [address] | [place], [place] | | | EM[facility] POINT OF CARE | [facility] | [address] | | | TESTS | | | [...] + | [facility] | [address] | [place] [address] | | | SERVICES, CORE | WALLY [...] 2 fold may not reflect true | [facility] | | biological changes and must [...] laboratory under CLIA, CAP, and the [facility]. | | + + + + + + + + | Performing | Address | City/State[facility] | Phone Number | | Organization | | | | + + + + + | [facility] | [address] | [place] [address] | | | DIAGNOSTIC | [address] [...]
--- OUTSIDE RECORDS SUMMARY | ~2019-05-17 | XMS | Encounter Summary ---
Demographics + + + | Address | [address] | | | [place] [address] | + + + | Home Phone [...] Providers + +------+ + | Care First Assistant Manager Name | Role | Phone | + +------+ + | Zayda Hinton | PCP | | + +------+ + Encounter Details +--------+ + + + + | Date | Type | Department | Care Team | Description | +--------+ + + + + | 02/21/ | Pharmacy | Specialty Pharmacy | | | | 2015 | Visit | Services [address] | | | | | [address] | | | | | | [place], [place] | | | | | | [address] | | | | | | [phone] | | | +--------+ + + + [...] | | | | | | [place], [place] | | | | | | [address] | | | | | | [phone] | | | | | | | | +--------+---------+ + + + documented as of this encounter Visit Diagnoses Not on filedocumented in this encounter"
--- OUTSIDE RECORDS SUMMARY | ~2019-05-17 | XMS | Encounter Summary ---
Demographics + + + | Address | [address] | | | [place] [address] | + + + | Home Phone [...] Providers + +------+ + | Care Hair Tinter Name | Role | Phone | + +------+ + | Zayda Hinton | PCP | | + +------+ + Encounter Details +--------+ + + + + | Date | Type | Department | Care Team | Description | +--------+ + + + + | 07/31/ | Pharmacy | Specialty Pharmacy | | | | 2016 | Visit | Services [address] | | | | | | [address] | | | | | | [place], [place] | | | | | | [address] | | | | | | [phone] | | | +--------+ + + + [...] Rd | | | | | | [place], [place] | | | | | | [address] | | | | | | [phone] | | | | | | | | +--------+---------+ + + + documented as of this encounter Visit Diagnoses Not on filedocumented in this encounter"
--- OUTSIDE RECORDS SUMMARY | ~2019-05-17 | XMS | Encounter Summary ---
Demographics + + + | Address | [address] | | | [place] [address] | + + + | Home Phone [...] Team Providers + +------+ + | Care Staking Engineer Name | Role | Phone | [...] | | | | | | | [address] | | | | | | | [address] | | | | | | | [place], | | | | | | | [place] | | | | | | | [address] | | | | | | | Phone: | | | | | | | [phone] | | | | | | | Fax: | | | | | | | [phone] | +--------+--------+ + + + + Encounter [...] Central venous | | | | [facility] [address] | | catheter (TPA) | | | | [place], | | | | | | [place] [address] | | | | | | [phone] | | | +--------+ + + + [...] a platelet count today at 11 with BOLT MAN order. Each u nit was checked by [...] was di scussed with the pt and caregiver/spike driver. See MAR. BmBx site CDI.- Pt stated understanding to keep the dressing CDI for 24 hours, monitor for s/sx of infection at the BmBx site, and call MD if any concerns. Fall precaution was also d iscussed with the pt and family. Pt stated that emergency room tech informed the pt that purple lumen is sluggish. - previously positive flush and blood return with dressing change. 15:00 - Alteplase 2 mg IV instilled into purple lumen of patient's Power PICC. SEE MAR. OK to DC pt with TPA instilled rather than waiting at the clinic with BOLT MAN order. - Pt RTC We . - pilot boat captain was placed and "DO NOT USE" TPA label attached to Purple lumen - Pt state d understanding to inform nurses/provider not to use as TPA instilled. Pt stated understanding to practice low blood count precautions and call the clinic if feve r, chills, bleeding, or any concerns. Pt DC home via wheelchair with family @ 15:15 after BOLT MAN/BmBx visit. RTC Sunday. Requested via follow up [...] Rd | | | | | | [place], [place] | | | | | | [address] | | | | | | [phone] | | | | | | | [...] | e | 9:48 AM | leukemia) ([facility]) | procedure are in the | | LEUKOREDUCED | | PST | | results section. 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 | + +--------+ + + + | INF DISEASE NATHALIA | Routin | 08/09/2015 | AML (acute myeloid | Results for this | | | e | 8:32 AM | leukemia) ([facility]) | procedure are in the | | | | PST | | results section. | + +--------+ + + + | INF DISEASE SCREEN | Routin | 08/09/2015 | AML (acute myeloid | Results for this | | | e | 8:32 AM | leukemia) ([facility]) | procedure are in the | | | | PST | | results section. | + +--------+ + + + | INFECT DISEASE | Routin | 08/09/2015 | AML (acute myeloid | Results for this | | MARKER PANEL | e | 8:32 AM | leukemia) ([facility]) | procedure are in the | | | | PST | | results section. | + +--------+ + + + | LIT SPECIMEN | Routin | 08/09/2015 | AML (acute myeloid | | | HANDLING FEE | e | 8:32 AM | leukemia) ([facility]) | | | | | PST | | | + +--------+ + + + | CMV PCR | Routin | 08/09/2015 | AML (acute myeloid | Results for this | | QUANTITATION, PLASMA | e | 8:32 AM | leukemia) ([facility]) | procedure are in the | | | | PST | | results section. | + +--------+ + + + | VARICELLA ZOSTER | Routin | 08/09/2015 | AML (acute myeloid | Results for this | | IGG, SERUM | e | 8:32 AM | leukemia) ([facility]) | procedure are in the | | | | PST | | results section. | + +--------+ + + + | HSV ANTIBODY, SERUM | Routin | 08/09/2015 | AML (acute myeloid | Results for this | | | e | 8:32 AM | leukemia) ([facility]) | procedure are in the | | | | PST | | results section. | + +--------+ + + + | TOMMY VOSS VIRUS | Routin | 08/09/2015 | AML (acute myeloid | Results for this | | PANEL, SERUM | e | 8:32 AM | leukemia) ([facility]) | procedure are in the | | | | PST | | results section. | + +--------+ + + + | TOXOPLASMA IGG AB, | Routin | 08/09/2015 | AML (acute myeloid | Results for this | | SERUM | e | 8:32 AM | leukemia) ([facility]) | procedure are in the | | | | PST | | results section. | + +--------+ + + + | HEPATITIS A AB IGM, | Routin | 08/09/2015 | AML (acute myeloid | Results for this | | SERUM | e | 8:32 AM | leukemia) ([facility]) | procedure are in the | | | | PST | | results section. | + +--------+ + + + | HEPATITIS B SURFACE | Routin | 08/09/2015 | AML (acute myeloid | Results for this | | AB QUAL, SERUM | e | 8:32 AM | leukemia) ([facility]) | procedure are in the | | | | PST | | results section. | + +--------+ + + + | HEPATITIS A AB | Routin | 08/09/2015 | AML (acute myeloid | Results for this | | SCREEN, SERUM | e | 8:32 AM | leukemia) ([facility]) | procedure are in the | | | | PST | | results section. | + +--------+ + + + | INR | Routin | 08/09/2015 | AML (acute myeloid | Results for this | | | e | 8:31 AM | leukemia) ([facility]) | procedure are in the | | | | PST | | results section. | + +--------+ + + + | COMPLETE METABOLIC | Routin | 08/09/2015 | AML (acute myeloid | Results for this | | SET | e | 8:31 AM | leukemia) ([facility] | e | 8:31 AM | leukemia) ([facility]) | procedure are in the | | | | PST | | results section. | + +--------+ + + + | ANTIBODY SCREEN | Routin | 08/09/2015 | AML (acute myeloid | Results for this | | | e | 8:31 AM | leukemia) ([facility]) | procedure are in the | | | | PST | | results section. | + +--------+ + + + | TYPE AND SCREEN | Routin | 08/09/2015 | AML (acute myeloid | Results for this | | | e | 8:31 AM | leukemia) ([facility]) | procedure are in the | | | | PST | | results section. | + +--------+ + + + | ABO & RH TYPE | Routin | 08/09/2015 | AML (acute myeloid | Results for this | | | e | 8:31 AM | leukemia) ([facility]) | procedure are in the | | | | PST | | results section. | + +--------+ + + + | PHOSPHORUS, PLASMA | Routin | 08/09/2015 | AML (acute myeloid | Results for this | | | e | 8:31 AM | leukemia) ([facility]) | procedure are in the | | | | PST | | results section. | + +--------+ + + + | BILIRUBIN DIRECT | Routin | 08/09/2015 | AML (acute myeloid | Results for this | | | e | 8:31 AM | leukemia) ([facility]) | procedure are in the | | | | PST | | results section. | + +--------+ + + + | URIC ACID, PLASMA | Routin | 08/09/2015 | AML (acute myeloid | Results for this | | | e | 8:31 AM | leukemia) ([facility]) | procedure are in the | | | | PST | | results section. | + +--------+ + + + | MAGNESIUM, PLASMA | Routin | 08/09/2015 | AML (acute myeloid | Results for this | | | e | 8:31 AM | leukemia) ([facility]) | procedure are in the | | | | PST | | results section. | + +--------+ + + + | LDH TOTAL, PLASMA | Routin | 08/09/2015 | AML (acute myeloid | Results for this | | | e | 8:31 AM | leukemia) ([facility]) | procedure are in the | | | | PST | | results section. | + +--------+ + + + | CHOLESTEROL TOTAL, | Routin | 08/09/2015 | AML (acute myeloid | Results for this | | PLASMA | e | 8:31 AM | leukemia) ([facility]) | procedure are in the | | | | PST | | results section. | + +--------+ + + + | CBC AND AUTO DIFF | Routin | 08/09/2015 | AML (acute myeloid | Results for this | | | e | 8:04 AM | leukemia) ([facility]) | procedure are in the | | | | PST | | results section. | + +--------+ + + + | CBC, WITH | Routin | 08/09/2015 | AML (acute myeloid | Results for this | | DIFFERENTIAL | e | 8:04 AM | leukemia) ([facility]) | procedure are in the | | | | PST | | results section. | + +--------+ + + + | ENGRAFTMENT | Routin | 08/09/2015 | AML (acute myeloid | Results for this | | PRE-TRANSPLANT, | e | | leukemia) ([facility] [...] + + + + | PRODUCT | [id number] | | [facility] | | | UNIT [...] + + + + | EXPIRATION | [id number] | | [facility] | | | DATE [...] + + + + | BLOOD | [id number] | | [facility] | | | PRODUCT [...] | [facility] | [address] | [place] [address] | | | PATHOLOGY | [address] [...] + | [facility] - AIR[facility] - | [address] | [place] [address] | | | [place] | | | | + + + [...] [facility] - | [address], | [place] [address] | | | IMMUNOGENETICS/TRANS | [address] | | | | PLANT LABORATORY | | | | + + + + + INF DISEASE [facility] (08/09/2015 8:32 AM PST) + + + [...] + + + | Testing performed at [facility] | [facility] | | Laboratory [address] [place] [address] | CELL PROCESSING | | | LAB | + + + + + + + + | Performing | Address | City/State/Zipcode | Phone Number | | Organization | | | | + + + + + | [facility] | [address] | [place], [place] | | | PROCESSING LAB | [address] | [address] | | + + + + + [...] HEM CELL | [address] | [place], [place] | | | PROCESSING LAB | [address] | [address] | | + + + + + [...] + + + | Testing performed at [facility] National [facility] | [facility] | | Laboratory [address] [place] [address] | CELL PROCESSING | | | LAB | + + + + + + + + | Performing | Address | City/State/Zipcode | Phone Number | | Organization | | | | + + + + + | [facility] | [address] | [place], [place] | | | PROCESSING LAB | [address] | [address] | | + + + + + [...] + + + | [facility] | [address] | [place] [address] | | | DIAGNOSTIC | [address] [...] clinical | | | laboratory under CLIA, [facility], and the [facility]. | | + + + + + + + + | Performing | Address | City/State/[facility] Cent[facility] | Phone Number | | Organization | | | | + + + + + | [facility] | [address] | [place] [address] | | | DIAGNOSTIC | [address] [...] at | | | | | | [email or web address] | | | | | | x. [...] at | | | | | | [email or web address] | | | | | | x. [...] at | | | | | | [email or web address] | | | | | | x. [...] at | | | | | | [email or web address] | | | | | | x.Performed by [facility] | | | | | | [facility],[address] [place] [address] | | | | | | [place] [address] | | | | | | [phone]. | | | | | | [facility], [address], | | | | | [...] [facility] | [address] | [place], [place] | | | UNIV PTH - INTFC | | [address] | | + + + + + [...] + | [facility] - | [address] | [place] [address] | | | [place] | | | [...] | + + + + + | [facility] - | [address] | [place] [address] | | | [place] | | | [...] + | [facility] - | [address] | [place] [address] | | | [place] | | | [...] + | [facility] - | [address] | [place] [address] | | | [place] | | | [...] | | | | | | [place] [address] | | | | | | [phone]. | | | | | | [place] [...] [facility] | [address] | [place], [place] | | | UNIV PTH - INTFC | | [address] | | + + + + + [...] [facility] | [address] | [place] [address] | | | SERVICES, | [address] [...] | + + + + + | [employer] | [address] | [place] [address] | | | SERVICES, | [address] [...] [facility] | [address] | [place] [address] | | | SERVICES, CORE | PARK [...] [facility] | [address] | [place] [address] | | | SERVICES, CORE | PARK [...] + + + | [facility] | [address] | [place] [address] | | | SERVICES, CORE | WALLY [...] + + | [facility] | [address] | [place] [address] | | | SERVICES, CORE | PARK [...] + + + | [facility] | [address] | [place] [address] | | | SERVICES, CORE | WALLY [...] [facility] | [address] | [place] [address] | | | SERVICES, INDRA | PARK [...] + + | [facility] | [address] | [place] [address] | | | SERVICES, CORE | PARK [...] + + + | [facility] | [address] | [place] [address] | | | SERVICES, CORE | WALLY [...] | | | LABORATORY | | | [facility] | | | SERVICES, | | | [...] + + + | [facility] | [address] | [place] [address] | | | SERVICES, CORE | PARK [...] [facility] | [address] | [place] [address] | | | SERVICES, CORE | PARK [...] the | | | | | | [facility] | | | | | | [...] | | | | determined bythe [facility] | | | | | [...] | | | | | The [facility] | | | | | | DiagnosticsLaboratories | | | | | | is a fully licensed | | | | | | and/or accredited | | | | | | clinical laboratoryunder | | | | | | CLIA, CAP, and the | | | | | | State of [place]. | | | | | | Rendering [...] + + + | [facility] | [address] | [place] [address] | | | DIAGNOSTIC | [address] [...]
--- OUTSIDE RECORDS SUMMARY | ~2019-05-17 | XMS | Encounter Summary ---
Demographics + + + | Address | [address] | | | [place] [address] | + + + | Home Phone [...] Team Providers + +------+ + | Care Public School Teacher Name | Role | Phone | [...] | | | | | | | [address] | | | | | | | [address] | | | | | | | [place], | | | | | | | [place] | | | | | | | [address] | | | | | | | Phone: | | | | | | | [phone] | | | | | | | Fax: | | | | | | | [phone] | +--------+--------+ + + + + Encounter [...] [address] | | ([facility]); | | | | Wally Burger Mailcode: | | Dressing change | | | | [facility] | | (Trifusion) | | | | [place], | | | | | | [place] [address] | | | | | | [phone] | | | +--------+ + + + [...] [place] | | | | | | [address] | | | | | | [phone] | | | | | | | [...] [facility] | [address] | [place], [place] | | | RUTHIE CARTER OF KRISTA | [address] | [address] | | | TESTS | | | [...] YESSICA [facility]TO | [address] | [place], [place] | | | EMMA POINT OF CARE | [address] | [address] | | | TESTS | | | [...] [facility] | [address] | [place] [address] | | | SERVICES, CORE | WALLY [...] is just barely above background consistent | [facility] | | with an extremely low level [...] by the [facility] | | | [facility][1] [facility] Diagnostic [facility]. It has not been [...] The [facility] Diagnostic | | | [facility] is a fully licensed and/or | | | accredited clinical laboratory under CLIA, CAP, and the State of | | | [place]. | | + + + + + + + + | Performing | Address | City/State/Zipcode | Phone Number | | Organization | | | | + + + + + | [facility] | [address] | [place] [address] | | | DIAGNOSTIC | [address] [...] | + + + + + | [facility] | [address] | [place] [address] | | | SERVICES, SPECIAL | PARK [...]
--- OUTSIDE RECORDS SUMMARY | ~2019-05-17 | XMS | Encounter Summary ---
Demographics + + + | Address | [address] | | | [place] [address] | + + + | Home Phone [...] Team Providers + +------+ + | Care Embossing Tool Setter Name | Role | Phone | [...] X-ray | | 2019 | | [facility] [address] | [address] | | | | | Ave Mailcode: CH12A | [address] | | | | | [facility] | [place], [place] | | | | | and [place], | [address] | | | | | [facility] | [phone] | | | | | Floor [place], [place] | | | | | | [address] | | | | | | [phone] | | | +--------+ + + + [...] 2019 | Visit | Malignancy | [address] | | | | | | [address] | | | | | | [place] | | | | | | [address] | | | | | | [phone] | | | | | | | | +--------+---------+ + + + documented as of this encounter Visit Diagnoses Not on filedocumented in this encounter"
--- OUTSIDE RECORDS SUMMARY | ~2019-05-17 | XMS | Encounter Summary ---
Demographics + + + | Address | [address] | | | [place] [address] | + + + | Home Phone [...] Team Providers + +------+ + | Care Agronomy Manager Name | Role | Phone | [...] 03/15/ | Telephone | Center for | Yari Garcia MD | Medication | | 2017 | | Hematologic | [address] | Adjustment (IST Tac) | | | | Malignancies at | [address] | | | | | Christian Barry | [place], [place] | | | | | [address] | [address] | | | | | Debi Burger Mailcode: | [phone] | | | | | [facility] | | | | | | [place], | | | | | | [place] [address] | | | | | | [phone] | | | +--------+ + + + [...] | | | | | | [place], [place] | | | | | | [address] | | | | | | [phone] | | | | | | | | +--------+---------+ + + + documented as of this encounter Visit Diagnoses Not on filedocumented in this encounter"
--- OUTSIDE RECORDS SUMMARY | ~2019-05-17 | XMS | Encounter Summary ---
Demographics + + + | Address | [address] | | | [place] [address] | + + + | Home Phone [...] Team Providers + +------+ + | Care Scalloper Name | Role | Phone | + [...] | | | | | | | [address] | | | | | | | Phone: | | | | | | | [phone] | | | | | | | Fax: | | | | | | | [phone] | +--------+--------+ + + + + Encounter Details +--------+ + + + + | Date | Type | Department | Care Team | Description | +--------+ + + + + | 01/02/ | Clinical | Center for | | Lab Draw (Trifusion) | | 2015 | Support | Hematologic | | | | | Staff | Malignancies at [facility] | | | | | | [address] | | | | | | Wally Burger Mailcode: | | | | | | [address] [place] | | | | | | [place], | | | | | | [place] [address] | | | | | | [phone] | | | +--------+ + + + [...] MM URD (DPB1 permissive antigen mismatch, male, [id number]) Allergies: Khurram is allergic to chlorhexidine towelette. 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 Next Appointment in [facility] is on 01/06/16 at 10:25 am with [...] Rd | | | | | | [place], [place] | | | | | | [address] | | | | | | [phone] | | | | | | | [...] - [facility] | [address] | [place], [place] | | | RUTHIE CARTER OF CARE | [address] | [address] | | | TESTS | | | [...] [facility] | [address] | [place], [place] | | | RUTHIE CARTER OF KRISTA | [address] | [address] | | | TESTS | | | [...] | + + + + + | [facility] | [address] | [place] [address] | | | SERVICES, CORE | WALLY [...] | | | characteristics determined by the [facility] | | | Molecular [...] | | | Act of 1988. The [facility] [employer] [facility] Molecular | | | Diagnostic Center is a fully licensed and/or accredited clinical | | | laboratory under CLIA, NUVIA, and the [facility]. | | + + + + + + + + | Performing | Address | City/State/Zipcode | Phone Number | | Organization | | | | + + + + + | [facility] | [address] | [place] [address] | | | DIAGNOSTIC | [address] [...]
--- OUTSIDE RECORDS SUMMARY | ~2019-05-17 | XMS | Encounter Summary ---
Demographics + + + | Address | [address] | | | [place] [address] | + + + | Home Phone [...] Team Providers + +------+ + | Care Model Builder Display Name | Role | Phone | + +------+ + | Pending Pcp Addition | PCP | Unavailable | + +------+ + Reason for Visit + + + | Reason | Comments | + + + | Lab Draw | | + + + | Dressing change | trifusion | + + + Office Visit - [...] | | | | | remission | [address] | [facility] | | | | | | Phone: | Pavilion | | | | | Procedures | [phone] | [place], [place] | | | | | Post BMT | Fax: | [address] | | | | | Auth to | [phone] | Phone: | | | | | included | | [phone] | | | | | facility, | | Fax: | | | | | diagnostics, | | [phone] | | | | | office | | | | | | | visits and | | | | | | | surgery | | | +--------+---------+ + + + + Encounter Details +--------+ + + + + | Date | Type | Department | Care Team | Description | +--------+ + + + + | 10/24/ | Clinical | Center for | | Lab Draw; Dressing | | 2016 | Support | Hematologic | | change (trifusion) | | | Staff | Malignancies at [facility] | | | | | | [address] | | | | | | [address] Mailcode: | | | | | | [id number] | | | | | | [place], | | | | | | [place] [address] | | | | | | [phone] | | | +--------+ + + + [...] documented as of this encounter Progress Notes Mirza Carlin, RN - 10/25/2015 11:49 AM PDTPt denied pain, fever, chills, bleeding, diar kathy, constipation, mouth sores, or nausea and able to drink at least 2 L oral fluids at [facility] e. Pt already took TAC at home this morning. - Dr. Garcia was notified and lab cancelled. Pre-procedure pain level: none Neostar intact to left anterior chest wall without erythema or induration. Dressing remove d, skin intact without s/s exit site or tunnel infection. Using a Central Line Dressing Lora nge kit, site cleansed with Chloraprep - ok to use per pt. Skin prep applied prior to dress ing application. Biopatch applied with Tegaderm and Duoderm dressing. Positive pressure v gill changed to each port. Patient tolerated procedure without difficulty. Post-procedure pain level: none VAD Lab Draw: Neostar accessed per protocol. Good blood return noted. Appropriate waste discarded. Lab s drawn and sent. Neostar pulse flushed with 20 mL NS and 5 mL of 10 units/mL Heparin. Pt stated understanding to call the clinic if fever, chills, bleeding, or any concerns. Stable with ambulation and will DC home with family after MD visit. documented in this e ncounter Plan of [...] 2018 | Visit | Malignancy | [address] | | | | | | [address] | | | | | | [place], [place] | | | | | | [address] | | | | | | [phone] | | | | | | | | +--------+---------+ + + + documented as of this encounter Procedures + +--------+ + + + | Procedure Name | Priori | Date/Time | Associated Diagnosis | Comments | | | ty | | | | + +--------+ + + + | BMP + MAG, POC CHM | Urgent | 10/25/2015 | Acute myeloid | Results for this | | | | 11:39 AM | leukemia (AML), M4 | procedure [...] + + | CBC+DIFF,POC | Urgent | 10/25/2015 | Acute myeloid | Results for this | | | | 11:38 AM | leukemia (AML), M4 | procedure [...] + | CMV PCR | Urgent | 10/25/2015 | Acute myeloid | Results for this | | QUANTITATION, PLASMA | | 11:22 AM | leukemia (AML), M4 [...] + | LIVER SET | Urgent | 10/25/2015 | Acute myeloid | Results for this | | (AST,ALT,BILI | | 11:22 AM | leukemia (AML), M4 [...] + | PHOSPHORUS, PLASMA | Urgent | 10/25/2015 | Acute myeloid | Results for this | | | | 11:22 AM | leukemia (AML), M4 [...] + + | ASPERGILLUS | Urgent | 10/25/2015 | Acute myeloid | Results for this | | GALACTOMANNAN | | 11:22 AM | leukemia (AML), M4 | procedure are in the | | ANTIGEN, SERUM | | PDT | ([facility])- primary [...] [place] | | | | | | RUTHEI CARTER | | | | | | [...] 188 | 0 - 206 U/L | [facility] - | | | | | | [place] | | | | | | [facility]INT | | | | | | OF CARE | | | | | | TESTS | | + +---------+ + + + | MAGNESIUM, | 1.8 | 1.8 - 2.5 mg/dL | [facility] - | | | POC [...] [place] | [address] | [place], [place] | | | RUTHIE CARTER OF CARE | [facility] | [address] | | | TESTS | | | | + + + + + CBC+DIFF,POC (10/25/2015 11:38 AM PDT) + + + [...] SORTO | [address] | [place], [place] | | | RUTHIE CARTER OF KRISTA | [address] | [address] | | | TESTS | | | [...] true | [facility] | | biological changes and must be [...] | | | characteristics determined by the [facility] | | | Molecular Diagnostic Center. It has not been cleared or approved by | | | the Food and Drug Administration. FDA approval is not required for | | | clinical use of this test, and therefore validation was done as | | | required under the requirements of the Clinical Laboratory Improvement | | | Act of 1988. The [facility] Molecular | | | Diagnostic Center is a fully licensed and/or accredited clinical | | | laboratory under CLIA, CAP, and the [facility]. | | + + + + + + + + | Performing | Address | City/State/Zipcode | Phone Number | | Organization | | | | + + + + + | [facility] | [address] | [place] [address] | | | DIAGNOSTIC | [address] [...] + | [facility] [employer] | [address] | [place] [address] | | | SPECIAL KOLE | [address] | | | | IVELISSE + DANIELE | | | | + + + [...] [facility] | [address] | [place] [address] | | | SERVICES, CORE | PARK [...] YESSICA LOZA | [address] | [place] [address] | | | SERVICES, CORE | WALLY [...] 10 unit/mL IV flush | Given | 04/18/20 | 50 Units | | | | syringe 50 Units 50 Units, | | 16 11:37 | | | | | Intracatheter, NEEDED, | | AM PDT | | | | | Starting Sun10/25/15 at 1113, | | | | | | | Until Sun10/25/15 at 1838, line | | | | | | | patency | | | | | | + +--------+ + +------+------+ +-------+ + +---+---+ | Given | 10/25/19 | 50 Units | | | | | 16 11:36 | | | | | | AM PDT | | | | +-------+ + +---+---+ | Given | 10/25/19 | 50 Units | | | | | 16 11:35 | | | | | | AM PDT | | | | +-------+ + +---+---+ +---+---+ | | | +---+---+ documented in this encounter"
--- OUTSIDE RECORDS SUMMARY | ~2019-05-17 | XMS | Encounter Summary ---
Demographics + + + | Address | [address] | | | [place] [address] | + + + | Home Phone [...] Providers + +------+ + | Care Field Aide Name | Role | Phone | + [...] | | | | | | | [address] | | | | | | | [address] | | | | | | | [place], | | | | | | | [place] | | | | | | | [address] | | | | | | | Phone: | | | | | | | [phone] | | | | | | | Fax: | | | | | | | [phone] | +--------+--------+ + + + + Encounter Details +--------+---------+ + + + | Date | Type | Department | Care Team | Description | +--------+---------+ + + + | 11/02/ | Office | Center for | Yari Garcia MD | S/P allogeneic bone | | 2016 | Visit | Hematologic | [address] | marrow transplant | | | | Malignancies at | [address] | (HCC) (Primary Dx); | | | | [facility] | [place], [place] | GVHD (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 | | | | [address] | [address] | host disease) (HCC) | | | | [address]bi [address] Mailcode: | [phone] | | | | | [address] | | | | | | [place], | | | | | | [place] [address] | | | | | | [phone] | | | +--------+---------+ + + + [...] + + + | Blood Pressure | 122/82 | 11/03/2015 10:12 AM | | | | | PDT | | + + + + + | Pulse | 87 | 11/03/2015 10:12 AM | | | | | PDT | | + + + + + | Temperature | 36.9 C (98.5 F) | 11/03/2015 10:12 AM | | | | | PDT | | + + + + + | Respiratory Rate | 18 | 11/03/2015 10:12 AM | | | | | PDT | | + + + + + | Oxygen Saturation | 100% | 11/03/2015 10:12 AM | | | | | PDT | | + + + + + | Inhaled Oxygen | - | - | | | Concentration | | | | + + + + + | Weight | 82.7 kg (182 lb 5.1 | 11/03/2015 10:12 AM | | | | oz) | PDT | | + + + + + | Height | - | - | | + + + + + | Body Mass Index | 23.57 | 08/18/2015 4:35 PM | | | | | PST | | + + + + + documented in this encounter Progress Notes Yari Garcia MD - 11/03/2015 11:02 AM PDT 11/03/15 [facility] Physician: Yari Garcia MD Local Oncologist: Yari Garcia MD PCP: Pending Pcp ADDITION Hematologic Malignancy: Primary refractory AML Conditioning regimen: tBuCy Date of transplant: 08/27/2015 (two day 0s) Donor: MM URD (DPB1 permissive antigen mismatch, male, [id number]) Hematologic History: Khurram Kelly is a 25 [...] his L ankle. He was evaluated at [facility] ED on 06/[address] [...] acute myelomonocytic leukemia. He was referred to [facility] for further evaluation and man agement of his newly dx'd AML. Pt was admitted to [facility] on 05/26/15. Peripheral blood was sent for [...] CD34, variable CD56, variable CD117, and dim [id number] mickey; promonocyte immunophenotype (70% by flow): CD11b, [...] with Hx of primary refractory AML, currently 6 9 days post transplant, s/p tBuCy conditioned MM URD SCT. Interval History: Khurram returns to clinic and is continuing to feel well. He had reactivation of CMV vire oracio in his peripheral blood last week and and was started on valganciclovir last Sunday. He has not noted any early ill effects. He has noted mild progression in the rash over his fo rearms. No itching/pain. Just notes that the there are a few more scattered bumps over michelle ateral forearms. Very faint erythema over upper mid-back, pt and do not think there bower s been progression. Has been using topical steroid cream without complications to affected areas. No ill effects from azcytidine. No nausea, eating and drinking well. Has had occasional m ild constipation which he attributes to oxycodone and uses milk of magnesium prn for it. Mark wels are otherwise normal - once daily, formed. No eye or mouth dryness. No abdominal pain. No bleeding/bruising. No recent fevers/chill s. Remains active - tried jogging --> sore knees. Wants to do some weight-lifting to work on his muscles. Review of Systems Constitutional: Negative for fever, chills, weight loss and malaise/fatigue. HENT: Negative for congestion. Eyes: Negative for blurred vision, pain and discharge. Respiratory: Negative for cough, shortness of breath and wheezing. Cardiovascular: Negative for chest pain and leg swelling. Gastrointestinal: Positive for constipation. Negative for heartburn, nausea, vomiting, abdo coco pain and diarrhea. Genitourinary: Negative for dysuria. Musculoskeletal: Positive for myalgias. Negative for joint pain. Skin: Positive for rash. Negative for itching. Neurological: Negative for dizziness, weakness and headaches. Endo/Heme/Allergies: Does not bruise/bleed easily. Psychiatric/Behavioral: Negative for depression. The patient is not nervous/anxious. Current Medication List Name Sig ALPRAZOLAM 0.5 MG TABLET Take 2 tablets [...] once daily. Indications: Seasonal Allergic R hinitis LACTULOSE 10 GRAM ORAL PACKET Take 10 [...] n ausea/vomiting. OXYCODONE 5 MG TABLET Take 2 tablets by mouth every six hours as needed for severe pain. D ecrease to 5 mg (1 tablet) per dose when pain is under better control. POSACONAZOLE 100 MG TABLET,DELAYED RELEASE Take 3 tablets by mouth once daily. PREDNISONE 10 MG TABLET Take 15 mg [...] e 1 mg capsule) in the evening. [place] 0.5 mg capsules for future use. TACROLIMUS 1 MG CAPSULE Take 1 mg (one 1 mg capsule) by mouth in the morning and 1 mg (one 1 mg capsule) in the evening. [place] 0.5 mg capsules for future use. TRIAMCINOLONE ACETONIDE 0.1 % TOPICAL CREAM Apply to affected area three times daily. Apply thin film to affected areas. SULFAMETHOXAZOLE 800 MG-TRIMETHOPRIM 160 MG TABLET Take 1 tablet by mouth twice daily (ever y Sunday and ). VALGANCICLOVIR 450 MG TABLET Take 2 tablets by mouth two times daily. Vitals: BP 122/82 | Pulse 87 | Temp (Src) 36.9 C (98.5 F) (Oral) | RR 18 | Wt 82.7 kg (182 lb 5 .1 oz) | SpO2 100% | BMI 23.57 kg/(m^2) Pre-transplant weight 165 pounds Physical Exam Constitutional: He is well-developed, well-nourished, and in no distress. No distress. HENT: Mouth/Throat: Oropharynx is clear and moist. No oropharyngeal exudate. Mildly cushingoid facies Eyes: Conjunctivae are normal. No scleral icterus. Neck: Neck supple. Cardiovascular: Normal rate and regular rhythm. No murmur heard. Pulmonary/Chest: Breath sounds normal. No respiratory distress. He has no wheezes. Abdominal: Soft. Bowel sounds are normal. He exhibits no distension. There is no tenderness . Musculoskeletal: Normal range of motion. He exhibits no edema. Lymphadenopathy: He has no cervical adenopathy. Neurological: He is alert. Skin: Skin is warm and dry. Rash noted. He is not diaphoretic. There is erythema. No pallor . Faint maculopapular rash over forearms - no involvement of upper arms. Faint macular eryth phil over upper back - barely visible. Skin over legs/abdomen is dry, but otherwise unremark able. Psychiatric: Mood, memory, affect and judgment normal. Laboratory Results: Clinical Lye Treater on 11/03/2015 Component Date Value WBC POC 11/03/2015 6.6 RBC POC 11/03/2015 3.65* HGB POC 11/03/2015 12.3* HCT POC 11/03/2015 37.1* MCV POC 11/03/2015 101.6* MCH POC 11/03/2015 33.7* MCHC POC 11/03/2015 33.2 RDW SD, POC 11/03/2015 62.5* PLT POC 11/03/2015 80* MPV POC 11/03/2015 8.3* NEUTROPHIL% POC 11/03/2015 65.3 LYMPH% POC 11/03/2015 28.0 MONO %, POC 11/03/2015 4.7 EOS %, POC 11/03/2015 1.7 BASO %, POC 11/03/2015 0.3 NEUTROPHIL# POC 11/03/2015 4.4 LYMPH# POC 11/03/2015 1.9 MONO #, POC 11/03/2015 0.3 EOS #, POC 11/03/2015 0.1 BASO #, POC 11/03/2015 0.0 CBC COMMENT, POC 11/03/2015 Imm Gran. Lft Shift. SODIUM, POC 11/03/2015 142 POTASSIUM, POC 11/03/2015 4.4 TOTAL CO2, POC 11/03/2015 26 CHLORIDE, POC 11/03/2015 101 GLUCOSE, POC 11/03/2015 123* CALCIUM TOTAL, POC 11/03/2015 9.4 BUN, POC 11/03/2015 18 CREATININE, POC 11/03/2015 0.7 LDH, POC 11/03/2015 252* MAGNESIUM, POC 11/03/2015 1.7* Hematology: Hematologic Malignancy: Refractory AML after 7+3, HAM, decitabine, now re Conditioning Regimen: tBuCy Stem cell transplant -Stem Cell product: tolerated MM (DPB1 permissive antigen mismatch) stem cell product on -08/27 (two day 0s) without complications. CD 34 count = 5.96 x 10^6 per kg -BMT Day: +69 Pertinent Diagnostics: -Around day + 30 repeat [...] a benign germline polymorphism of donor origin). Plan for next bone marrow biopsy at end of this first cycle of azacytidine (appx day 90) gi hong very high risk disease. Platelets peaked at 172, with steady subsequent decline, initially thought to be related to GVHD vs. Bactrim. Now with initiation of azacytidine 11/01/15 and valgancyclovir on 10/27/15 has competing reasons for progressive cytopenias. --> twice weekly CBCs with diff --> transfuse with leukocyte reduced irradiated blood products for platelets <10, hct <21% or symptomatic --> avoid neupogen until post day 100 unless active infection given high risk disease --> hold bactrim if progressive cytopenias (though likely not root cause, may be contributi ng factor) GVHD: Skin GvHD: patient developed rash early in transplant course during SCT admission. Derm bio psy done 08/27/15 showing subtle vacuolar interface dermatitis, the changes are consistent wi th eruption of lymphocyte recovery and early mild bnndu-aorvdq-qhlv disease. On 09/13, rash in volved ~15% BSA. Patient with progression of rash to chest, abd, back, upper arms bilat, thi ghs bilat (front and back); ~56% BSA at wrost on 09/14. Rash had resolved starting 10/06 clinic visit. Rash re-appeared on 10/17 clinic visit and stable in location/presentation on 10/20: F aint patchy erythematous rash to lower chest, abdomen, flanks, and scattered over bilateral forearms. [...] 15 mg once daily as of 10/20. -Prednisone 10 mg once daily as of 10/27 with slight recurrence of symptoms on forearms LOW THRESHOLD TO INCREASE STEROIDS IF PROGRESSIVE RASH, pt reminded to call in and note sym ptoms if evolving. 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 Antiviral: Valgancyclovir initiated 10/26 for CMV reactivation (900 mg bid). The CMV yaima l be followed weekly by PCR and dose decreased to once daily after two weekly negative readi ngs. Lab Results Component Value Date CMVQUANTPCR 440* 11/01/2015 CMVQUANTPCR 1300* 10/25/2015 CMVQUANTPCR Weak Positive* 10/18/2015 CMVQUANTPCR Undetected 10/11/2015 Antifungal: Posaconazole as of 09/15/15 with HD steroids and given history of marijuana use p re-transplant. PCP proph: Pentamidine IV for PCP prophlaxis given on 09/12/15. Bactrim for PCP coverage star edward 10/11/15. IgG: IgG level will be followed every other week and replaced prn if it falls below 300 . Lab Results Component Value Date IGG 480* 11/01/2015 Toxo: Pt is toxo negative 08/09/2015, no further testing required. Fluid/Nutrition/Lytes: Nutrition: Current diet -- low bacteria. Encourage po intake as tolerated with a goal of co nsistently drinking at least 2L calorie containing fluids per day. IV Fluid: None indicated today. Lytes: Continue to check chemistries twice weekly. Replace per supportive care protocol. -Hypomagnesemia: replace in clinic PRN F/u --> return to clinic for completion of azacytidine dosing, then twice weekly with labs and infusions and once weekly provider visits. 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
--- OUTSIDE RECORDS SUMMARY | ~2019-05-17 | XMS | Encounter Summary ---
Demographics + + + | Address | [address] | | | [place] [address] | + + + | Home Phone [...] Team Providers + +------+ + | Care Custom Dressmaker Name | Role | Phone | + +------+ + | Zayda Hinton | PCP | | + +------+ + Encounter Details +--------+ + + + + | Date | Type | Department | Care Team | Description | +--------+ + + + + | 12/20/ | Pharmacy | Outpatient Retail | | | | 2019 | Visit | Clinic Pharmacy | | | | | | [address] | | | | | | [place], | | | | | | [place] [address] | | | +--------+ + + + [...] | | | | | | [place], [place] | | | | | | [address] | | | | | | [phone] | | | | | | | | +--------+---------+ + + + documented as of this encounter Visit Diagnoses Not on filedocumented in this encounter"
--- OUTSIDE RECORDS SUMMARY | ~2019-05-17 | XMS | Encounter Summary ---
Demographics + + + | Address | [address] | | | [place] [address] | + + + | Home Phone [...] Team Providers + +------+ + | Care Apple Peeler Operator Name | Role | Phone | [...] | | | | | | | [address] | | | | | | | [address] | | | | | | | [place], | | | | | | | [place] | | | | | | | [address] | | | | | | | Phone: | | | | | | | [phone] | | | | | | | Fax: | | | | | | | [phone] | +--------+--------+ + + + + Encounter [...] | | | | Christian Barry | [place], [place] | | | | | [address] | [address] | | | | | [address] Mailcode: | [phone] | | | | | [address] | | | | | | [place], | | | | | | [place] [address] | | | | | | [phone] | | | +--------+---------+ + + + [...] ptoms or side effects please call our helper steel fabrication at [phone] documented in this encounter Progress Notes Yari Garcia MD - 12/27/2015 1:45 PM PDT 123 days post transplant 12/27/15 [facility] Primary [facility] MD: Yari Garcia MD Primary Oncologist: Yari Garcia MD Diagnosis: AMML, 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 He was evaluated at [place] ED on 06/[address] angiogram negative [...] CD34, variable CD56, variable CD117, and dim [id number] mickey; promonocyte immunophenotype (70% by flow): CD11b, [...] c3 of [facility]ac[facility]idine [facility]. Interim History: Khurram [...] Tender to pressure above knees, no erythema/warmth. [place] joint line. Lymphadenopathy: He has no cervical adenopathy. Neurological: He is alert. Skin: Skin is warm and dry. No rash noted. He is not diaphoretic. No erythema. No pallor. Psychiatric: Mood, memory, affect and judgment normal. CVC: Trifusion intact to R ant chest wall without erythema, induration Clinical Rotating Equipment Specialist on 12/27/2015 Component Date Value WBC POC [...] plan to com plete 6 cycles 2. Eisju-vj-Vxtg Disease: Skin bx due to mild rash [...] note, pt and planning to travel to [place] 01/05-01/10/16 Yari Garcia MD, MS Woodyard Operatorreceiving and processing supervisor [facility] [address] [place] [address] documented in this enc ounter Plan of [...] Rd | | | | | | [place], [place] | | | | | | [address] | | | | | | [phone] | | | | | | | [...] | 1.5 - 8.1 U/L | [facility] | | | SERUM | REFERENCE INTERVAL: | | REG UNIV | | | | Aldolase Access complete | | PTH - INTFC | | | | set of age- and/or | | | | | | gender-specific | | | | | | reference intervals for | | | | | | this test in the [facility] | | | | | | Laboratory Test | | | | | | Directory | | | | | | ([employer]).Performed | | | | | | by [facility],[address] | | | | | | [address], [facility] [place] | | | | | | [address] | | | | | | [phone]. | | | | | | [facility], [place], | | | [...] [facility] | [address] | [place], [place] | | | UNIV PTH - INTFC | | [address] | | + + + + + [...] YESSICA LOZA | [address] | [place] [address] | | | SERVICES, CORE | [address] | | | + + + + + documented in this encounter Visit Diagnoses + + | Diagnosis | + + | Acute pain of both knees - Primary | + + documented in this encounter"
--- OUTSIDE RECORDS SUMMARY | ~2019-05-17 | XMS | Encounter Summary ---
Demographics + + + | Address | [address] | | | [place] [address] | + + + | Home Phone [...] Team Providers + +------+ + | Care Software Support Specialist Name | Role | Phone | + +------+ + | Zayda Hinton | PCP | | + +------+ + Encounter Details +--------+ + + + + | Date | Type | Department | Care Team | Description | +--------+ + + + + | 09/12/ | Ophth Exam | [facility] | Josie Ibrahim MD | | | 2016 | | [place] [facility] | [address] | | | | | [address] | [place], [place] | | | | | [address] | [address] | | | | | Mailcode: CE | [phone] | | | | | [place], [place] | | | | | | [address] | | | | | | [phone] | | | +--------+ + + + [...] [place] | | | | | | [address] | | | | | | [phone] | | | | | | | | +--------+---------+ + + + documented as of this encounter Visit Diagnoses Not on filedocumented in this encounter"
--- OUTSIDE RECORDS SUMMARY | ~2019-05-17 | XMS | Encounter Summary ---
Demographics + + + | Address | [address] | | | [place] [address] | + + + | Home Phone [...] Providers + +------+ + | Care Building Surveyor Name | Role | Phone | + +------+ + | Zayda Hinton | PCP | | + +------+ + Reason for Visit + + + | Reason | Comments | + + + | Medication | low dose pred | + + + Encounter Details +--------+ + + + + | Date | Type | Department | Care Team | Description | +--------+ + + + + | 09/05/ | Telephone | Center for | Yari Garcia MD | Medication (low dose | | 2018 | | Hematologic | [address] [facility] | pred) | | | | Malignancies at | [address] | | | | | [place] | [place], [place] | | | | | [address] [facility] | [address] | | | | | Debi Mailcode: | [phone] | | | | | [facility] | | | | | | [address], | | | | | | [place] [address] | | | | | | [phone] | | | +--------+ + + + [...] [address] | | | | | | [place] | | | | | | [address] | | | | | | [phone] | | | | | | | | +--------+---------+ + + + documented as of this encounter Visit Diagnoses Not on filedocumented in this encounter"
--- OUTSIDE RECORDS SUMMARY | ~2019-05-17 | XMS | Encounter Summary ---
Demographics + + + | Address | [address] | | | [place] [address] | + + + | Home Phone [...] Providers + +------+ + | Care Building Trades Instructor Name | Role | Phone | + +------+ + | No Pcp Per Patient | PCP | Unavailable | + +------+ + Reason for Visit + + + | Reason | Comments | + + + | Refill Request | Tac 0.5 | + + + Encounter Details +--------+--------+ + + + | Date | Type | Department | Care Team | Description | +--------+--------+ + + + | 10/26/ | Refill | Center for | Aspen Cummins FNP | Refill Request (Tac | | 2017 | | Hematologic | [address] | 0.5) | | | | Malignancies at | [address] | | | | | [place] | [place], [place] | | | | | [address] | [address] | | | | | Debi Mailcode: | [phone] | | | | | [facility] | | | | | | [facility] [place], | | | | | | [place] [address] | | | | | | [phone] | | | +--------+--------+ + + + [...] Rd | | | | | | [place] | | | | | | [address] | | | | | | [phone] | | | | | | | | +--------+---------+ + + + documented as of this encounter Visit Diagnoses Not on filedocumented in this encounter"
--- OUTSIDE RECORDS SUMMARY | ~2019-05-17 | XMS | Encounter Summary ---
Demographics + + + | Address | [address] | | | [place] [address] | + + + | Home Phone [...] Team Providers + +------+ + | Care Dry Kiln Burner Name | Role | Phone | + +------+ + | Zayda Hinton | PCP | | + +------+ + Encounter Details +--------+ + + + + | Date | Type | Department | Care Team | Description | +--------+ + + + + | 11/23/ | Pharmacy | Specialty Pharmacy | | | | 2016 | Visit | Services [address] | | | | [address] | | | | | | [place], [place] | | | | | | [address] | | | | | | [phone] | | | +--------+ + + + [...] Rd | | | | | | [place], [place] | | | | | | [address] | | | | | | [phone] | | | | | | | | +--------+---------+ + + + documented as of this encounter Visit Diagnoses Not on filedocumented in this encounter"
--- OUTSIDE RECORDS SUMMARY | ~2019-05-17 | XMS | Encounter Summary ---
Demographics + + + | Address | [address] | | | [place] [address] | + + + | Home Phone [...] Team Providers + +------+ + | Care Ice Delivery Driver Name | Role | Phone | + +------+ + | Zayda Hinton | PCP | | + +------+ + Encounter Details +--------+--------+ + + + | Date | Type | Department | Care Team | Description | +--------+--------+ + + + | 01/06/ | Travel | | | | | [...] | | | | | | [place], [place] | | | | | | [address] | | | | | | [phone] | | | | | | | | +--------+---------+ + + + documented as of this encounter Visit Diagnoses Not on filedocumented in this encounter"
--- OUTSIDE RECORDS SUMMARY | ~2019-05-17 | XMS | Encounter Summary ---
Demographics + + + | Address | [address] | | | [place] [address] | + + + | Home Phone [...] Providers + +------+ + | Care Air Pollution Engineer Name | Role | Phone | [...] | | | | | | [place], | | | | | | | [place] | | | | | | | [address] | | | | | | | Phone: | | | | | | | [phone] | | | | | | | Fax: | | | | | | | [phone] | +--------+--------+ + + + + Encounter Details +--------+---------+ + + + | Date | Type | Department | Care Team | Description | +--------+---------+ + + + | 02/22/ | Office | Center for | Aspen Cummins FNP | S/P allogeneic bone | | 2016 | Visit | Hematologic | [address] | marrow transplant | | | | Malignancies at | [address] | (HCC) (Primary Dx) | | | | [facility] | [place], [place] | | | | | [address] | [address] | | | | | [place] Burger Mailcode: | [phone] | | | | | [facility] | | | | | | [place], | | | | | | [place] [address] | | | | | | [phone] | | | +--------+---------+ + + + [...] + + + | Blood Pressure | 134/87 | 02/23/2016 10:27 AM | | | | | PDT | | + + + + + | Pulse | 90 | 02/23/2016 10:27 AM | | | | | PDT | | + + + + + | Temperature | 36.8 C (98.2 F) | 02/23/2016 10:27 AM | | | | | PDT | | + + + + + | Respiratory Rate | 18 | 02/23/2016 10:27 AM | | | | | PDT | | + + + + + | Oxygen Saturation | 100% | 02/23/2016 10:27 AM | | | | | PDT | | + + + + + | Inhaled Oxygen | - | - | | | Concentration | | | | + + + + + | Weight | 93.3 kg (205 lb 11 | 02/23/2016 10:27 AM | | | | oz) | PDT | | + + + + + | Height | - | - | | + + + + + | Body Mass Index | 26.12 | 01/25/2016 8:24 AM | | | | | PDT | | + + + + + documented in this encounter Progress Notes Aspen Cummins, [place]LY - 02/22/2016 3:18 PM PDT 02/23/2016 [facility] MD: Yari Garcia MD Primary Oncologist: Yari Garcia MD Diagnosis: AMML, 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 He was evaluated at [facility] ED on 06/[address] angiogram [...] myelomonocytic leukemia. He was referred to [facility] for further evaluation and man agement of his newly dx'd AML. Pt was admitted to [facility] on 05/26/15. Peripheral blood was sent [...] CD34, variable CD56, variable CD117, and dim [id number] mickey; promonocyte immunophenotype (70% by flow): CD11b, [...] durin g taper. He is currently day +180 s/p transplant, day 3, c5 of azacitidine and returns to clinic tod lisa for scheduled follow-up. Interim History: Khurram was most recently evaluated in [facility] by me on 02/16/16. Continues to feel well overall. Tolerating chemo without incr eased nausea. Appetite remains good. Mild intermittent nausea, no antiemetics required. Wasserman ge from TAC ointment to cream over the weekend due to the heat, feels his rash may be a bit worse. Energy is good, golfed yesterday. Pt talked with another patient who will be coming to transplant. He spent a few hours talk ing, texting and sending music. Pt was grateful and gave him two box seats to the [facility] on 04/16/16. Review of Systems Constitutional: Negative for fever, chills and malaise/fatigue. HENT: Negative for headaches, congestion and sore throat. Respiratory: Negative for cough and shortness of breath. Cardiovascular: Negative for chest pain and leg swelling. Gastrointestinal: Negative for nausea, vomiting, abdominal pain, diarrhea, blood in stool a nd melena. Genitourinary: Negative for dysuria and hematuria. Musculoskeletal: Negative for myalgias, back pain and joint pain. Skin: Positive for rash. [...] Take 2 tablets by mouth once daily. tacrolimus 0.5 mg [...] PRN Yari Garcia MD 50 Units at 02/23/16 1200 heparin 10 unit/mL IV flush syringe 50 Units 50 Units Intracatheter PRN Yari Garcia MD 50 Units at 02/23/16 1200 heparin 10 unit/mL IV flush syringe 50 Units 50 Units Intracatheter PRMatilda Garcia MD 50 Units at 02/23/16 1200 LORazepam (ATIVAN) tablet 1 mg 1 mg oral PRN Yari Garcia MD 1 mg at 02/23/16 1148 Allergies Allergen Reactions Chlorhexidine Towelette Rash PAVAN cloths - ok to use Chloraprep for dresssing change per pt. Filed Vitals: 02/23/2016 10:27 AM Weight: 93.3 kg (205 lb 11 oz) BP: 134/87 Pulse: 90 Temp: 36.8 C (98.2 F) TempSrc: Oral Resp: 18 SpO2: 100% PainSc: 0 - Zero BMI: 26.12 kg/(m^2) Physical Exam Constitutional: He is well-developed, [...] Skin is warm and dry. Rash (very faint pink rash to trunk, BUE with one erythematous papule to LUE) noted. Psychiatric: Mood and affect normal. Vitals reviewed. Lab Results Component Value Date WBC 12.8 02/23/2016 HB 11.9 02/23/2016 HCT 34.6 02/23/2016 PLT 175 02/23/2016 MCV 106.1 02/23/2016 RDW 60.3 11/22/2015 Lab Results Component Value Date BICARB 24 02/23/2016 TBILI 0.4 02/23/2016 CA 9.6 02/23/2016 CL 104 02/23/2016 CR 0.7 02/23/2016 GLU 133* 02/23/2016 AP 131* 02/23/2016 TP 6.8 02/23/2016 BUN 13 02/23/2016 ALB 3.6 02/23/2016 AST 77* 02/23/2016 NA 139 02/23/2016 K 4.1 02/23/2016 ALT 205* 02/23/2016 Assessment/Plan: 1. Hematology: Khurram Kelly is currently day +180 s/p tBuCy-conditioned unrel ated donor PBSC transplant [...] He began maintenance azacitidine on 11/01/15, currently c5, day 3 . Mild leukocytosis, anemia with normal plt count. He continues with no evidence of disease by peripheral smear. 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 Prednisone was increased back to 20 mg po daily. Skin bx 02/10/16 showed vaculolar inter face mixed dermatitis with eosinophils. DDx included GvHD and drug hypersensitivity reaction . Rash markedly improved with increased dose prednisone, no real change in rash after switch ing from TAC cream to ointment. Transaminitis noted with slight improvement in LFTs; suggest mickey of GvHD. --> continue prednisone 20 mg po daily --> if LFTs > 500, liver bx for definite dx prior to initiation of HD steroids --> hold PUVA for now --> continue tacrolimus 0.5 mg bid without [...] therapy. --> continue acyclovir, monthly pentamidine (due ~02/28/16) --> if peripheral counts remain stable through this cycle of azacitidine, change to bactrim prophylaxis --> due to CMV reactivation prior to day +100, monitor PCRs q1-2 weeks through day +270 Lab Results Component Value Date CMVQUANTPCR Undetected 02/21/2016 CMVQUANTPCR Undetected 02/16/2016 CMVQUANTPCR Undetected 02/07/2016 CMVQUANTPCR Undetected 01/31/2016 4. Fluid, Electrolyte and Nutrition: continues to eat well with adequate po fluid intake. M inimal nausea, does not require antiemetics. His electrolytes are reviewed and are within ac ceptable limits. --> continue a well balanced diet --> maintain hydration --> continue po Mg++ supplements as prescribed 5. Cardiovascular: Pretransplant TTE completed 08/10/15 showed a LVEF of 55-60%. 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 --> continue current meds --> anticipate HTN will improve as tacrolimus tapers 6. Follow up --> continue daily visits for azacitidine through 02/25/16 --> RTC to f/u with me on 02/28/16, sooner prn [facility] AT [address] Mailcode: [address] [address] documented in this enc ounter [...] Rd | | | | | | [place], [place] | | | | | | [address] | | | | | | [phone] | | | | | | | | +--------+---------+ + + + documented as of this encounter Visit Diagnoses + + | Diagnosis | + + | 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
--- OUTSIDE RECORDS SUMMARY | ~2019-05-17 | XMS | Encounter Summary ---
Demographics + + + | Address | [address] | | | [place] [address] | + + + | Home Phone [...] Team Providers + +------+ + | Care Dielectric Tester Name | Role | Phone | + +------+ + | Pending Pcp Addition | PCP | Unavailable | + +------+ + Reason for Visit + + + | Reason | Comments | + + + | Lab Draw | PICC | + + + | Chemotherapy | Day 5 Cycle 1 Decitabine | + + + | Patient education | | + + + Chemotherapy (Routine) [...] [address] | | | | | [place] | | [address] | | | | | DEC[address]ABINE | | [address] [place], | | | | | INJECTION, 1 | | [place] | | | | | [place] | | [address] | | | | | CH[facility],IV | | Phone: | | | | | INFSN,1 HR | | [phone] | | | | | [place] [facility] | | Fax: | | | | | INFSN,ADDL | | [phone] | | | | | [place] | | | +--------+--------+ + + + + Encounter Details +--------+ + + + + | Date | Type | Department | Care Team | Description | +--------+ + + + + | 07/23/ | Clinical | Center for | | Lab Draw (PICC); | | 2015 | Support | Hematologic | | Chemotherapy (Day 5 | | | Staff | Malignancies at [facility] | | Cycle 1 Decitabine | | | | [address] | | ); Patient education | | | | [place] [place] Mailcode: | | | | | | [address] | | | | | | [place], | | | | | | [place] [address] | | | | | | [phone] | | | +--------+ + + + [...] + + + | Blood Pressure | 113/66 | 07/23/2015 12:05 PM | | | | | PST | | + + + + + | Pulse | 79 | 07/23/2015 12:05 PM | | | | | PST | | + + + + + | Temperature | 36.7 C (98.1 F) | 07/23/2015 12:05 PM | | | | | PST | | + + + + + | Respiratory Rate | 16 | 07/23/2015 12:05 PM | | | | | PST | | + + + + + | Oxygen Saturation | 100% | 07/23/2015 12:05 PM | | | | | PST | | + + + + + | Inhaled Oxygen | - | - | | | Concentration | | | | + + + + + | Weight | 83.1 kg (183 lb 3.2 | 07/23/2015 12:05 PM | | | | oz) | PST | | + + + + + | Height | - | - | | + + + + + | Body Mass Index | 23.21 | 07/15/2015 1:57 PM | | | | | PST | | + + + + + documented in this encounter Progress Notes Rochelle Ozuna - 07/23/2015 6:26 PM PSTFormatting of this note might be different from th e original. Chemotherapy Nurse Note Name: Khurram Kelly Date: 07/23/2015 Physician: Yari Garcia MD Allergies: Khurram is allergic to chlorhexidine towelette. Pre-Chemotherapy Pain Score: Patient reports a pain level of 0 today. Subjective:Kermit 24 y.o male with newly diagnosed AML, s/p 3+7 and reinduction with [facility] awaiting Stem cell tx in August for aggressive disease now scheduled to get Decitibine to hold disease until transplant. Patient arrives in clinic with his for labs and Day 5 Cy manish 1 Decitabine. VSS. Patient reports generally feeling well but does have c/o fatigue afte r staying up late last night. Patient denies fever, chills, dizziness, dyspnea, constipation , diarrhea, N/V, swelling, mucositis, urinary issues, neuropathy, or rash. Patient had one e pisode of bleeding gums several nights ago after brushing his teeth - denies active bleeding since. Patient eating and drinking 2 L per day without difficulty. Labs: CBC with diff last 72 hours (or 3 results) Recent Labs 07/21/15 1543 07/23/15 1225 WBC 1.09* 1.19* HB 8.1* 7.5* HCT 22.8* 21.5* PLT 20* 20* NEUTROPERC 13.0* 5.0* LYMPHPERC 40.3 16.8* MONOPERC 41.5* 78.2* BASOPERC 0.0 0.0 EOSPERC 0.0* 0.0* For Treatment Done in Clinic Today: see MAR Narrative: Power PICC intact to LUE. Dressing C/D/I and WDL. Power PICC accessed per protoc ol. Good blood return noted. Appropriate waste discarded. Labs drawn and sent from red lumen . Power PICC pulse flushed with 20 mL NS. Patient was pre-medicated with Zofran 8 mg PO. Per infusion plan, no transfusions needed. Type and Screen sent for possible transfusions over the weekend. Dr. Garcia paged regarding lab orders with no response. Per [place] Nguyen labs need to be drawn on Sunday or sooner if patient is symptomatic. Chemotherapy was checked by 2 RNs. Decitabine 42 mg was infused per chemotherapy protocol a nd completed without adverse event. Positive blood return noted pre and post infusion. For infusion details, see MAR. Assessment: Tolerated procedure. All questions and concerns addressed. Chemotherapy and Liu tropenic precautions reviewed. Patient scheduled to RTC 07/24/2015. Rochelle Ozuna RN documented in this encoun [...] [place] | | | | | | [address] | | | | | | [phone] | | | | | | | | +--------+---------+ + + + + + +--------+ + + | Name | Type | Priori | Associated Diagnoses | Order Schedule | | | | ty | | | + + +--------+ + + | CBC+DIFF,POC | Lab - Point | Routin | Acute myeloid | Ordered: 07/23/2015 | | | of Care | e [...] + | ANTIBODY SCREEN | Urgent | 07/23/2015 | Acute myeloid | Results for this | | | | 2:00 PM | leukemia (AML), M4 | procedure are in the | | | | PST | ([facility]) | results section. | + +--------+ + + + | TYPE AND SCREEN | Urgent | 07/23/2015 | Acute myeloid | Results for this | | | | 2:00 PM | leukemia (AML), M4 | procedure are in the | | | | PST | ([facility]) | results section. | + +--------+ + + + | ABO & RH TYPE | Urgent | 07/23/2015 | Acute myeloid | Results for this | | | | 2:00 PM | leukemia (AML), M4 | procedure are in the | | | | PST | ([facility]) | results section. | + +--------+ + + + | RBC MORPHOLOGY | Routin | 07/23/2015 | Acute myeloid | Results for this | | | e | 12:25 PM | leukemia (AML), M4 | procedure are in the | | | | PST | ([facility]) | results section. | + +--------+ + + + | CBC AND AUTO DIFF | Urgent | 07/23/2015 | Acute myeloid | Results for this | | | | 12:25 PM | leukemia (AML), M4 | procedure are in the | | | | PST | ([facility]) | results section. | + +--------+ + + + | CBC, WITH | Urgent | 07/23/2015 | Acute myeloid | Results for this | | DIFFERENTIAL | | 12:25 PM | leukemia (AML), M4 | procedure are in the | | | | PST | ([facility]) | results section. | + +--------+ + + + documented in this encounter Results ANTIBODY SCREEN (07/23/2015 2:00 PM PST) + + + + [...] | [address] | [place] [address] | | | SERVICES, | [address] | | | | TRANSFUSION MEDICINE | | | | + + + + + ABO & RH TYPE (07/23/2015 2:00 PM PST) + + + + [...] [facility] | [address] | [place] [address] | | | SERVICES, | [address] | | | | TRANSFUSION MEDICINE | | | | + + + + + RBC MORPHOLOGY (07/23/2015 12:25 PM PST) + + + + + [...] | [address] | [place] [address] | | | SERVICES, CORE | [address] | | | + + + + + CBC AND AUTO DIFF (07/23/2015 12:25 PM PST) + + + + + + | Component | Value | Ref Range | Performed | Pathologist | | | | | At | Signature | + + + + + + | WHITE CELL | 1.19 (L) | 4.40 - 11.00 | [facility] [...] + + + + | NEUTROPHIL | 5.0 (L) | 50.0 - 70.0 % | [...] + + + | MONOCYTE % | 78.2 (H)Comment: Some | 3.5 - 9.0 % [...] + + + | MONOCYTE # | 0.93 (H) | 0.10 - 0.90 | [facility] [...] + | [facility] | [address] | [place] [address] | | | SERVICES, CORE | [address] [...] 42 mg in | New Bag | 07/23/19 | 42 mg | 258.4 | | | NaCl (PF) IV 42 mg (20 mg/m2 | | 16 1:30 | | mL/hr | | | 2.1 m2 Treatment plan recorded | | PM PST | | | | | BSA), intravenous, Administer | | | | | | | over 1 Hours, ONCE, 1 dose, Fri | | | | | | | 07/23/15 at 1300, HIGH RISK | | | | | | | MEDICATION-CHEMOTHERAPY , | | | | | | + +---------+ +-------+--------+------+ +---+---+ | | | +---+---+ + +-------+ +------+---+---+ | ondansetron (ZOFRAN) tablet 8 | Given | 07/23/19 | 8 mg | | | | mg 8 mg, oral, ONCE, 1 dose, Fri | | 16 12:28 | | | | | 1/15/16 at 1215 | | PM PST | | | | + +-------+ +------+---+---+ +---+---+ | | | +---+---+ documented in this encounter"
--- OUTSIDE RECORDS SUMMARY | ~2019-05-17 | XMS | Encounter Summary ---
Demographics + + + | Address | [address] | | | [place] [address] | + + + | Home Phone [...] Providers + +------+ + | Care Medical Records Custodian Name | Role | Phone | + +------+ + | Pending Pcp Addition | PCP | Unavailable | + +------+ + Reason for Visit + + + | Reason | Comments | + + + | Schedule labs | Trifusion | + + + | Follow-up visit | Yari Garcia MD | + + + | Chemotherapy | Vidaza | + + + | Medication | Zofran | + + + | Dressing change [...] | | myelomonocyt | [address] | | | | | ic leukemia, | Paulina Jabier | [facility] | | | | | not having | [address] | [address] | | | | | achieved | [place], [place] | Mailcode: | | | | | remission | [address] | [id number] | | | | | Procedures | Phone: | [place] | | | | | [place] | [phone] | Pavilion | | | | | AZACITIDINE | Fax: | [place], [place] | | | | | INJECTION, 1 | [phone] | [address] | | | | | [place] | | Phone: | | | | | CHM,IV | | [phone] | | | | | INFSN,1 HR | | Fax: | | | | | [place] CHM,IV | | [phone] | | | | | INFSN,ADDL | | | | | | | HR Vidaza | | | +--------+---------+ + + + + Encounter Details +--------+ + + + + | Date | Type | Department | Care Team | Description | +--------+ + + + + | 12/29/ | Clinical | Center for | | Schedule labs | | 2016 | Support | Hematologic | | (Trifusion); | | | Staff | [facility] | | Follow-up visit | | | | [address] | | (Yari Garcia MD); | | | | [address] Burger Mailcode: | | Chemotherapy | | | | [id number] [place] | | (Vidaza); Medication | | | | Asha Rodriguez, | | (Zofrramsey ); Dressing | | | | [place] [address] | | change (Trifusion) | | | | [phone] | | | +--------+ + + + [...] encounter Progress Notes Pricilla Guy RN - 12/30/2015 9:00 AM PDTFormatting of this note might be different f rom the original. Chemotherapy Nurse Note Name: Khurram Kelly Date: 12/30/2015 Physician: Yari Garcia MD Allergies: Khurram is allergic to chlorhexidine towelette. Pre-Chemotherapy Pain Score: Patient reports a pain level of 0 today. Nursing Assessment: Patient arrived to clinic ambulatory for Day 4, Cycle 3 of Vidaza. Patient was having bilat eral knee pain but states on Sunday they increased prednisone and his knee pain has subsided . Patient reports feeling well otherwise. States he is eating well and drinking at least 2 L of fluids daily. Fever: no; Diarrhea: no; SOB / Cough: no; Nausea / Vomiting: no; Anemia / Fatigue: no; Cons tipation: no; Edema: no; S/S Bleeding: no; Mucositis: no; Urinary: no; Neuropathy: no; Rash: no Labs: Lab Results Component Value Date WBC 5.5 12/30/2015 HB 12.5* 12/30/2015 HCT 34.8* 12/30/2015 PLT 85* 12/30/2015 BUN 13 12/27/2015 CR 0.6* 12/27/2015 For Treatment Done in Clinic Today: see MAR Narrative: Patient to have liver set drawn on every visit. Patient's chemotherapy released. Patient pr emedicated with 8 mg PO Zofran per chemo plan orders. Patient was seen by Yari Garcia MD fo r follow up visit. Trifusion intact to left anterior chest wall [...] Heparin. Patient tolerated procedure with out difficulty. Post-procedure pain level: 0 Chemotherapy: Chemotherapy was checked by 2 RNs. Vidaza 70 mg was infused per chemotherapy protocol and completed without adverse event. Positive blood return noted pre, during and post infusion. For infusion details, see MAR. Patient instructed to call if experiencing temp > 100.4, uncontrolled n/v/d/c, s/s of bleed ing or infection, difficulty swallowing pills/food, or any other concerns. Patient to [facility] tomorrow 12/30 for labs, chemotherapy, and possible supportive measures. Anabel ent discharged home ambulatory with . Pricilla Guy, RN documented in this encounter [...] [address] | | | | | | [place], [place] | | | | | | [address] | | | | | | [phone] | | | | | | | | +--------+---------+ + + + documented as of this encounter Procedures + +--------+ + + + | Procedure Name | Priori | Date/Time | Associated Diagnosis | Comments | | | ty | | | | + +--------+ + + + | BMP + MAG, POC CHM | Routin | 12/30/2015 | S/P allogeneic | Results for this [...] + + | CBC+DIFF,POC | Routin | 12/30/2015 | S/P allogeneic | Results for this [...] + | TREATMENT PARAMETERS | Routin | 12/30/2015 | 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:28 AM | leukemia (AML), 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 | | | | | | induction failure | | + +--------+ + + + | TREATMENT PARAMETERS | Routin | 12/30/2015 | 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:28 AM | leukemia (AML), 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 | | | | | | induction failure | | + +--------+ + + + | TREATMENT PARAMETERS | Routin | 12/30/2015 | 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:28 AM | leukemia (AML), 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 | | | | | | induction failure | | + +--------+ + + + | TREATMENT PARAMETERS | Routin | 12/30/2015 | 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:28 AM | leukemia (AML), M4 | | | | | PDT | ([facility])- primary | | | | | | induction failure | | + +--------+ + + + | TREATMENT PARAMETERS | Routin | 12/30/2015 | 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:28 AM | leukemia (AML), M4 | | | | | PDT | ([facility])- primary | | | | | | induction failure | | + +--------+ + + + | NURSING | Routin | 12/30/2015 | Acute myeloid | | | COMMUNICATION #3 - | e | 8:28 AM | leukemia (AML), M4 | | | [facility] | | PDT | ([facility])- primary | | | | | | induction failure | | + +--------+ + + + | NURSING | Routin | 12/30/2015 | Acute myeloid | | | COMMUNICATION #2 - | e | 8:28 AM | leukemia (AML), M4 | | | [facility] | | PDT | (HCC)- primary | | | | | | induction failure | | + +--------+ + + + | NURSING | Routin | 12/30/2015 | Acute myeloid | | | COMMUNICATION #1 - | e | 8:28 AM | leukemia (AML), M4 | | | [facility] | | PDT | ([facility])- primary | | | | | | induction failure | | + +--------+ + + + | TREATMENT PARAMETERS | Routin | 12/30/2015 | Acute myeloid | | | #1 - [facility] | e | 8:28 AM | leukemia (AML), M4 | | | | | PDT | ([facility])- primary | | | | | | induction failure | | + +--------+ + + + | TREATMENT PARAMETERS | Routin | 12/30/2015 | Acute myeloid | | | #1 - [facility] | e | 8:28 AM | leukemia (AML), M4 | | | | | PDT | ([facility])- primary | | | | | | induction failure | | + +--------+ + + + | LIVER SET | Urgent | 12/30/2015 | S/P allogeneic | Results for this | | (AST,ALT,BILI | | 8:28 AM | bone marrow | procedure are [...] encounter Results BMP + MAG, POC CHM (12/30/2015 8:48 AM PDT) + +---------+ + + [...] +---------+ + + + | GLUCOSE, | 80 | 60 - 99 mg/dL | [facility] [...] + + + | LDH, POC | 397 (H) | 0 - 206 U/L | [facility] | | | | | | [place] | | | | | | [facility]IE CARTER | | | | | | OF CARE | | | | | | TESTS | | + +---------+ + + + | MAGNESIUM, | 2.0 | 1.8 - 2.5 mg/dL | [facility] - | | | POC | | [...] [place] | [address] | [place], [place] | | | [facility] CARTER OF [facility] | [facility] | [address] | | | TESTS | | | | + + + + + CBC+DIFF,POC (12/30/2015 8:48 AM PDT) + + + + + + | Component | Value | Ref Range | Performed | Pathologist | | | | | At | Signature | + + + + + + | WBC POC | 5.5 | 4.4 - 11.0 | [facility] - | | | | | 10*3/uL | [place] | | | | | | [facility] CARTER | | | | | | OF CARE | | | | | | TESTS | | + + + + + + | RBC POC | 3.43 (L) | 4.50 - 6.00 | [facility] - | | | | | 10*6/uL | [place] | | | | | | [facility], POINT | | | | | | OF CARE | | | | | | TESTS | | + + + + + + | HGB POC | 12.5 (L) | 13.5 - 17.5 [...] + + + | MCV POC | 101.5 (H) | 80.0 - 96.0 fL | [facility] - | | | | | | [place] | | | | | | [facility] POINT | | | | | | OF CARE | | | | | | TESTS | | + + + + + + | MCH POC | 36.4 (H) | 28.5 - 32.3 pg | [...] + + | RDW SD, POC | 53.8 (H) | 35.1 - 46.3 fL | [...] + + + + | NEUTROPHIL% | 60.2 | 50.0 - 70.0 % | [facility] - | | | POC | | | [place] | | | | | | [facility] POINT | | | | | | OF CARE | | | | | | TESTS | | + + + + + + | LYMPH% POC | 26.5 | 18 - 42 % | [facility] [...] + + | BASO %, POC | 1.1 | 0.0 - 2.0 % | [facility] [...] + | [facility] | [address] | [place], [place] | | | [place], POINT OF CARE | [address] | [address] | | | TESTS | | | | + + + + + LIVER SET (AST,ALT,BILI TOTAL,BILI DIRECT,ALK PHOS,ALB,PROT TOTAL) (12/30/2015 8:28 AM PDT ) + +---------+ + + [...] +---------+ + + + | AST(SGOT) | 220 (H) | <=41 U/L | [facility] | | | | | | LABORATORY | | | | | | SERVICES, | | | | | | CORE | | + +---------+ + + + | ALT (SGPT) | 454 (H) | <=60 U/L | [facility] | [...] [facility] | [address] | [place] [address] | | | SERVICES, INDRA | W[place] [...] 70 mg in | New Bag | 12/30/19 | 70 mg | 214 | | | NaCl 0.9 % IV 70 mg (rounded | | 16 9:37 | | mL/hr | | | from 67.84 mg = 32 mg/m2 | | AM PDT | | | | | 2.12 m2 Treatment plan recorded | | | | | | | BSA), intravenous, Administer | | | | | | | over 30 Minutes, ONCE, 1 dose, | | | | | | | [facility] 12/30/15 at 0900, HIGH RISK | | | | | | | MEDICATION-CHEMOTHERAPY | | | | | | | Administration must be completed | | | | | | | within 1 hour of preparation., | | | | | | + +---------+ +-------+-------+------+ +---+---+ | | | +---+---+ + +-------+ +------+---+---+ | ondansetron (ZOFRAN) tablet 8 | Given | 12/30/19 | 8 mg | | | | mg 8 mg, oral, ONCE, 1 dose, Lupe | | 16 8:58 | | | | | 12/30/15 at 0900 | | AM PDT | | | | + +-------+ +------+---+---+ +---+---+ | | | +---+---+ documented in this encounter"
--- OUTSIDE RECORDS SUMMARY | ~2019-05-17 | XMS | Encounter Summary ---
Demographics + + + | Address | [address] | | | [place] [address] | + + + | Home Phone [...] Providers + +------+ + | Care Security Guard Dispatcher Name | Role | Phone | [...] | 2017 | Encounter | Lab at [facility] [address] | [address] [facility] [address] [facility] [address] | | | | | Deshaun Jewell Mailcode: | [address] | | | | | [address] | [place], [place] | | | | | Health and Healing, | [address] | | | | | [address] | [phone] | | | | | Floor [place], [place] | | | | | | [address] | | | | | | [phone] | | | +--------+ + + + [...] Rd | | | | | | [place], [place] | | | | | | [address] | | | | | | [phone] | | | | | | | [...]
--- OUTSIDE RECORDS SUMMARY | ~2019-05-17 | XMS | Encounter Summary ---
Demographics + + + | Address | [address] | | | [place] [address] | + + + | Home Phone [...] Team Providers + +------+ + | Care [employer]eter [employer] Name | Role | Phone | + [...] | Hematology | Diagnoses | Jose, | Sixt[place] | | | | Malignancy | Acute [...] | | | | | remission | [address] | [id number] | | | | | Procedures | Phone: | [place] | | | | | [place] | [phone] | Pavilion | | | | | AZACITIDINE | Fax: | [place], [place] | | | | | INJECTION, 1 | [phone] | [address] | | | | | [place] | | Phone: | | | | | CHM,IV | | [phone] | | | | | INFSN,1 HR | | Fax: | | | | | [place] CH[facility],IV | | [phone] | | | | | INFSN,ADDL | | | | | | | HR Vidaza | | | +--------+---------+ + + + + Encounter Details +--------+ + + + + | Date | Type | Department | Care Team | Description | +--------+ + + + + | 01/27/ | Clinical | Center for | | Chemotherapy | | 2016 | Support | Hematologic | | (vidaza); Medication | | | Staff | [facility] | | (pentamadine) | | | | [address] | | | | | | Debi Burger Mailcode: | | | | | | [id number] [place] | | | | | | [place], | | | | | | [place] [address] | | | | | | [phone] | | | +--------+ + + + [...] + | Blood Pressure | 131/81 | 01/28/2016 12:42 PM | | | | | PDT | | + + + + + | Pulse | 78 | 01/28/2016 8:10 AM | | | | | PDT | | + + + + + | Temperature | 37.1 C (98.7 F) | 01/28/2016 8:10 AM | | | | | PDT | | + + + + + | Respiratory Rate | 16 | 01/28/2016 8:10 AM | | | | | PDT | | + + + + + | Oxygen Saturation | 100% | 01/28/2016 8:10 AM | | | | | PDT | | + + + + + | Inhaled Oxygen | - | - | | | Concentration | | | | + + + + + | Weight | 87.5 kg (192 lb 14.4 | 01/28/2016 8:10 AM | | | | oz) | PDT | | + + + + + | Height | - | - | | + + + + + | Body Mass Index | 24.5 | 01/25/2016 8:24 AM | | | | | PDT | | + + + + + documented in this encounter Progress Notes Samantha Padilla, ZAFAR - 01/28/2016 8:25 AM PDT Chemotherapy Nurse Note Name: Khurram Kelly Date: 01/28/2016 Physician: Dr. Yari Garcia Allergies: Khurram is allergic to chlorhexidine towelette. Pre-Chemotherapy Pain Score: Patient reports a pain level of 0 today. Narrative: Khurram Kelly is a 25 y.o. male with Hx of primary refractory AML, He is currently day +154 s/p transplant, day 29, c3 of azacitidine and returns to clinic tod for scheduled follow-up. Nursing Assessment: Patient arrived ambulatory to clinic. He states he is feeling well. He recently went home to [facility] to visit family and played golf and states he felt great, just slightly sore a fter. He has some overall fatigue since beginning chemo. Fever: no; Diarrhea: no; SOB / Co ugh: no; Nausea / Vomiting: no; Anemia / Fatigue: yes - since chemo; Constipation: no; Edema : no; S/S Bleeding: no; Mucositis: no; Urinary: no; Neuropathy: no; Rash: no Vascular Access: Neostar accessed per protocol. Good blood return noted. Appropriate wast e discarded. Labs drawn and sent. Labs: Lab Results Component Value Date WBC 6.5 01/27/2016 HB 13.1* 01/27/2016 HCT 36.6* 01/27/2016 PLT 83* 01/27/2016 BUN 19 01/27/2016 CR 1.0 01/27/2016 For Treatment Done in Clinic Today: see MAR Treatment Provided: Labs results reviewed and met protocol parameters. Pre-medications of 8 mg po Zofran and 1 mg PO ativan given as ordered. Chemotherapy was checked by 2 RNs. vidaza was infused per chemotherapy protocol and comple edward without adverse event. Positive blood return noted pre and post infusion. For infusion details, see MAR. Neostar pulse flushed with 20 mL NS and 5 mL of 10 units/mL Heparin. Pentamadine 300 mg infused over 2 hours. Completed without adverse event. Positive blood return noted pre and post infusion. For infusion details, see MAR. Patient was reminded to call clinic with temp > 100.4, chills, s/s of bleeding or uncontrol led N/V/D/C. Patient verbalizes understanding. Patient was instructed to check out at the ont desk prior to leaving the clinic. Patient d/c d ambulatory. Samantha Swartz, ZAFAR documented in this encounter Plan of Treatment [...] Rd | | | | | | [place], [place] | | | | | | [address] | | | | | | [phone] | | | | | | | | +--------+---------+ + + + documented as of this encounter Procedures + +--------+ + + + | Procedure Name | Priori | Date/Time | Associated Diagnosis | Comments | | | ty | | | | + +--------+ + + + | NURSING | Routin | 01/28/2016 | S/P allogeneic | | | COMMUNICATION #5 - | e | 8:03 AM | bone marrow | | | [facility] | | PDT | transplant (HCC) | 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 | | + +--------+ + + + | NURSING | Routin | 01/28/2016 | S/P allogeneic | | | COMMUNICATION #4 - | e | 8:03 AM | bone marrow | | | [facility] | | PDT | transplant (HCC) | 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 | | + +--------+ + + + | GUIDELINES FOR | Routin | 01/28/2016 | S/P allogeneic | | | ORDERING #1 - [facility] | e | 8:03 AM | bone marrow | | | | | PDT | transplant (HCC) | 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 | | + +--------+ + + + | TREATMENT PARAMETERS | Routin | 01/28/2016 | S/P allogeneic | | | #1 - [facility] | e | 8:03 AM | bone marrow | | | | | PDT | transplant (HCC) | 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 | | + +--------+ + + + | TREATMENT PARAMETERS | Routin | 01/28/2016 | 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:02 AM | leukemia (AML), 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 | | | | | | induction failure | | + +--------+ + + + | TREATMENT PARAMETERS | Routin | 01/28/2016 | 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:02 AM | leukemia (AML), 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 | | | | | | induction failure | | + +--------+ + + + | TREATMENT PARAMETERS | Routin | 01/28/2016 | 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:02 AM | leukemia (AML), M4 | | | | | PDT | ([facility])- primary | | | | | | induction failure | | + +--------+ + + + | TREATMENT PARAMETERS | Routin | 01/28/2016 | 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:02 AM | leukemia (AML), M4 | | | | | PDT | ([facility])- primary | | | | | | induction failure | | + +--------+ + + + | TREATMENT PARAMETERS | Routin | 01/28/2016 | 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:02 AM | leukemia (AML), M4 | | | | | PDT | ([facility])- primary | | | | | | induction failure | | + +--------+ + + + | NURSING | Routin | 01/28/2016 | S/P allogeneic | | | COMMUNICATION #3 - | e | 8:02 AM | bone marrow | | | [facility] | | PDT | transplant ([facility]) | 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 | | + +--------+ + + + | NURSING | Routin | 01/28/2016 | S/P allogeneic | | | COMMUNICATION #3 - | e | 8:02 AM | bone marrow | | | [facility] | | PDT | transplant (HCC) | 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 | | + +--------+ + + + | NURSING | Routin | 01/28/2016 | S/P allogeneic | | | COMMUNICATION #2 - | e | 8:02 AM | bone marrow | | | [facility] | | PDT | transplant (HCC) | 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 | | + +--------+ + + + | NURSING | Routin | 01/28/2016 | S/P allogeneic | | | COMMUNICATION #2 - | e | 8:02 AM | bone marrow | | | [facility] | | PDT | transplant (HCC) | 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 | | + +--------+ + + + | NURSING | Routin | 01/28/2016 | S/P allogeneic | | | COMMUNICATION #1 - | e | 8:02 AM | bone marrow | | | [facility] | | PDT | transplant (HCC) | 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 | | + +--------+ + + + | NURSING | Routin | 01/28/2016 | S/P allogeneic | | | COMMUNICATION #1 - | e | 8:02 AM | bone marrow | | | [facility] | | PDT | transplant (HCC) | 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 | | + +--------+ + + + | TREATMENT PARAMETERS | Routin | 01/28/2016 | S/P allogeneic | | | #1 - [facility] | e | 8:02 AM | bone marrow | | | | | PDT | transplant (HCC) | 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 | | + +--------+ + + + | TREATMENT PARAMETERS | Routin | 01/28/2016 | S/P allogeneic | | | #1 - [facility] | e | 8:02 AM | bone marrow | | | | | PDT | transplant ([facility]) | | | | | | Acute myeloid | | | | | | leukemia (AML), M4 | | | | | | ([facility])- primary | | | | | | induction failure | | + +--------+ + + + documented in this encounter Visit Diagnoses + + | Diagnosis | + + | 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[facility]) - Primary Bone marrow replaced by | [...] 70 mg in | New Bag | 01/28/20 | 70 mg | 214 | Central | | NaCl 0.9 % IV 70 mg (rounded | | 16 9:35 | | mL/hr | Line | | from 67.84 mg = 32 mg/m2 | | AM PDT | | | | | 2.12 m2 Treatment plan recorded | | | | | | | BSA), intravenous, Administer | | | | | | | over 30 Minutes, ONCE, 1 dose, | | | | | | | Sun01/28/16 at 0830, HIGH RISK | | | | | | | MEDICATION-CHEMOTHERAPY | | | | | | | Administration must be completed | | | | | | | within 1 hour of preparation., | | | | | | + +---------+ +-------+-------+ + +---+---+ | | | +---+---+ + +-------+ + +---+---+ | heparin 10 unit/mL IV flush | Given | 01/28/20 | 50 Units | | | | syringe 50 Units 50 Units, | | 16 12:42 | | | | | Intracatheter, NEEDED, | | PM PDT | | | | | Starting Sun01/28/16 at 0835, | | | | | | | Until Sun01/28/16 at 1851, line | | | | | | | patency | | | | | | + +-------+ + +---+---+ +---+---+ | | | +---+---+ + +-------+ + +---+---+ | heparin 10 unit/mL IV flush | Given | 01/28/20 | 50 Units | | | | syringe 50 Units 50 Units, | | 16 12:42 | | | | | Intracatheter, NEEDED, | | PM PDT | | | | | Starting Sun01/28/16 at 0835, | | | | | | | Until Sun01/28/16 at 1851, line | | | | | | | patency | | | | | | + +-------+ + +---+---+ +---+---+ | | | +---+---+ + +-------+ + +---+---+ | heparin 10 unit/mL IV flush | Given | 01/28/20 | 50 Units | | | | syringe 50 Units 50 Units, | | 16 12:42 | | | | | Intracatheter, NEEDED, | | PM PDT | | | | | Starting Sun01/28/16 at 0835, | | | | | | | Until Sun01/28/16 at 1851, line | | | | | | | patency | | | | | | + +-------+ + +---+---+ +---+---+ | | | +---+---+ + +-------+ +------+---+---+ | LORazepam (ATIVAN) tablet 1 mg | Given | 01/28/20 | 1 mg | | | | 1 mg, oral, NEEDED, 1 dose, | | 16 8:40 | | | | | Starting Sun01/28/16 at 0820, | | AM PDT | | | | | Until Sun01/28/16 at 0840, | | | | | | | nausea/vomiting | | | | | | + +-------+ +------+---+---+ +---+---+ | | | +---+---+ + +-------+ +------+---+---+ | ondansetron (ZOFRAN) tablet 8 | Given | 01/28/20 | 8 mg | | | | mg 8 mg, oral, ONCE, 1 dose, Sun | | 16 8:35 | | | | | 01/28/16 at 0830 | | AM PDT | | | | + +-------+ +------+---+---+ +---+---+ | | | +---+---+ + +---------+ +--------+---+---+ | pentamidine (PENTAM) IV 300 mg | New Bag | 01/28/20 | 300 mg | | | | 300 mg, intravenous, ONCE, 1 | | 16 10:20 | | | | | dose, 01/28/16 at 0830 | | AM PDT | | | | + +---------+ +--------+---+---+ +---+---+ | | | +---+---+ documented in this encounter"
--- OUTSIDE RECORDS SUMMARY | ~2019-05-17 | XMS | Encounter Summary ---
Demographics + + + | Address | [address] | | | [place] [address] | + + + | Home Phone [...] Providers + +------+ + | Care Test Preparer Name | Role | Phone | + +------+ + | Zayda Hinton | PCP | | + +------+ + Encounter Details +--------+ + + + + | Date | Type | Department | Care Team | Description | +--------+ + + + + | 08/04/ | Pharmacy | Specialty Pharmacy | | | | 2015 | Visit | Services [address] | | | | | | [address] | | | | | | [place], [place] | | | | | | [address] | | | | | | [phone] | | | +--------+ + + + [...] [place] | | | | | | [address] | | | | | | [phone] | | | | | | | | +--------+---------+ + + + documented as of this encounter Visit Diagnoses Not on filedocumented in this encounter"
--- OUTSIDE RECORDS SUMMARY | ~2019-05-17 | XMS | Encounter Summary ---
Demographics + + + | Address | [address] | | | [place] [address] | + + + | Home Phone [...] Team Providers + +------+ + | Care Asbestos Pipe Supervisor Name | Role | Phone | [...] | | | | | achieved | [place], [place] | [facility] | | | | | remission | [address] | [facility] | | | | | | Phone: | Asha | | | | | Procedures | [phone] | [place], [place] | | | | | Post BMT | Fax: | [address] | | | | | Auth to | [phone] | Phone: | | | | | included | | [phone] | | | | | facility, | | Fax: | | | | | diagnostics, | | [phone] | | | | | office | [...] | (Primary Dx) | | | | [facility] | [facility] [place] | | | | | [address] | [address] | | | | | Debi Burger Mailcode: | [phone] | | | | | [facility] | | | | | | [place], | | | | | | [place] [address] | | | | | | [phone] | | | +--------+---------+ + + + [...] do vaccines) Check out at the front office assistant today and make your next appointments. You can also call the flaco whitehead at [phone]. If you have any questions, or if you need prescription refills, or are experiencing any sym ptoms or side effects please call our cause analyst at [phone] Lab on 12/07/2016 Component Date Value GLUCOSE, PLASMA (LAB) 12/07/2016 100* BUN, PLASMA (LAB) 12/07/2016 6 CREATININE PLASMA (LAB) 12/07/2016 0.76 EGFR - WELSH 12/07/2016 >60 EGFR NON -WELSH 12/07/2016 >60 SODIUM, PLASMA (LAB) 12/07/2016 143 [...] Donor: MMURD (DPB1 permissive antigen mismatch, male, [id number]) Identifying Data: Khurram Kelly is a 26 [...] his L ankle. He was evaluated at [facility] ED on 06/[address] angiogram negative [...] CD34, variable CD56, variable CD117, and dim LE676-wmegy mickey; promonocyte immunophenotype (70% by flow): CD11b, [...] 12/07/2016 Assessment/Plan: 1. Hematology: Khurram Gambleliat is [id number] days post transplant s/p tBuCy-conditioned unrelated donor [...] indicated providing peripheral counts remain stable 2. 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 He initially responded but flared during taper. He also developed low-level nausea and abd discomfort concerning for GvHD, emp irically treated with oral non-absorbables with resolution. - He had tapered prednisone to 10 mg po daily when he developed a rash for which he was see n in the ED in [place] in late 01/21. Prednisone was increased back [...] candidiasis His most recent immune reconstitution panel [facility] 08/31/16 showed normal total T [...] one patient with minimal guidance from the physics technical officer (not t he usual physics technical officer). He is willing to give it another [...] establishing care here then moving back to [place]. 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
--- OUTSIDE RECORDS SUMMARY | ~2019-05-17 | XMS | Encounter Summary ---
Demographics + + + | Address | [address] | | | [place] [address] | + + + | Home Phone [...] Team Providers + +------+ + | Care Spinning Frame Fixer Name | Role | Phone | + [...] | | | | | | [place], | | | | | | | [place] | | | | | | | [address] | | | | | | | Phone: | | | | | | | [phone] | | | | | | | Fax: | | | | | | | [phone] | +--------+--------+ + + + + Encounter [...] [facility] | | | | | | [address] | | | | | | Wally Burger Mailcode: | | | | | | [facility] | | | | | | [place], | | | | | | [place] [address] | | | | | | [phone] | | | +--------+ + + + [...] [place] | | | | | | [address] | | | | | | [phone] | | | | | | | [...] the | | | | PST | ([facility]) | results section. | + +--------+ + + + | CBC+DIFF,POC | Routin | 08/16/2015 | Acute myeloid | Results for this | | | e | 3:04 PM | leukemia (AML), M4 | procedure are in the | | | | PST | ([facility]) | results section. | + +--------+ + + + | LDH TOTAL, PLASMA | Routin | 08/16/2015 | Acute myeloid | Results for this | | | e | 2:42 PM | leukemia (AML), M4 | procedure are in the | | | | PST | ([facility]) [...] | | [place] | | PST | ([facility]) | | + +--------+ + + + | NURSING | Routin | 08/16/2015 | Acute myeloid | | | COMMUNICATION #2 - | e | 2:41 PM | leukemia (AML), M4 | | | [place] | | PST | ([facility]) | | + +--------+ + + + | NURSING | Routin | 08/16/2015 | Acute myeloid | | | COMMUNICATION #1 - | e | 2:41 PM | leukemia (AML), M4 | | | [place] | | PST | ([facility]) | | + +--------+ + + + | TREATMENT PARAMETERS | Routin | 08/16/2015 | Acute myeloid | | | #1 - [place] | e | 2:41 PM | leukemia (AML), M4 | | | | | PST | ([facility]) | | + +--------+ + + + | TREATMENT PARAMETERS | Routin | 08/16/2015 | Acute myeloid | | | #1 - [facility] | e | 2:41 PM | leukemia (AML), M4 | | | | | PST | ([facility]) | | + +--------+ + + + | ANTIBODY SCREEN | Routin | 08/16/2015 | Acute myeloid | Results for this | | | e | 2:41 PM | leukemia (AML), M4 | procedure are in the | | | | PST | ([facility]) | results section. | + +--------+ + + + | TYPE AND SCREEN | Routin | 08/16/2015 | Acute myeloid | Results for this | | | e | 2:41 PM | leukemia (AML), M4 | procedure are in the | | | | PST | ([facility]) | results section. | + +--------+ + + + | ABO & RH TYPE | Routin | 08/16/2015 | Acute myeloid | Results for this | | | e | 2:41 PM | leukemia (AML), M4 | procedure are in the | | | | PST | ([facility]) [...] - [facility] | [address] | [place], [place] | | | RUTHIE CARTER [facility] | [address] | [address] | | | TESTS | | | [...] [facility] | [address] | [place], [place] | | | [facility] | [address] | [address] | | | TESTS | | | [...] [facility] | [address] | [place] [address] | | | KOLE, INDRA | PARK [...] [facility] | [address] | [place] [address] | | | SERVICES, | [address] [...] [facility] | [address] | [place] [address] | | | SERVICES, | [address] | | | | TRANSFUSION MEDICINE | | | | + + + + + documented in this encounter Visit Diagnoses + + | Diagnosis | + + | Acute myeloid leukemia (AML), M4 (HCC) | + + documented in this encounter"
--- OUTSIDE RECORDS SUMMARY | ~2019-05-17 | XMS | Encounter Summary ---
Demographics + + + | Address | [address] | | | [place] [address] | + + + | Home Phone [...] Team Providers + +------+ + | Care Nephrologist Name | Role | Phone | + [...] | | | | | | [facility] [place] | | | | | | [place], | | | | | | [place] [address] | | | | | | [phone] | | | +--------+ + + + [...] | | | | | | [place], [place] | | | | | | [address] | | | | | | [phone] | | | | | | | [...] section. | | | | | transplant ([facility]) | | + +--------+ + + + | VITAMIN D, | Routin | 10/21/2018 | Hx of allogeneic | Results for this | | 25-HYDROXY, SERUM | e | 11:39 AM | stem cell transplant | procedure are in the | | | | PDT | ([facility]) Vitamin D | results section. | | | | | deficiency | | + +--------+ + + + | TSH | Routin | 10/21/2018 | Hx of allogeneic | Results for this | | | e | 11:39 AM | stem cell transplant | procedure are in the | | | | PDT | ([facility]) Personal | results section. | [...] [facility] | [address] | [place], [place] | | | [facility] | [facility] | [address] | | | TESTS | | | [...] [facility] | [address] | [place], [place] | | | [facility] | [address] | [address] | | | TESTS | | | [...] | + + + + + | [facility] | [address] | [place] [address] | | | SERVICES, CORE | PARK [...] + + + + + | [facility] [employer] | [address] | [place] [address] | | | SERVICES, CORE | [address] [...] | [facility] | | considered for monitoring bed bug exterminator glycemic control in patients with: | LABORATORY [...] | + + + + + | [facility] | [address] | [place] [address] | | | SERVICES, SPECIAL | PARK [...]
--- OUTSIDE RECORDS SUMMARY | ~2019-05-17 | XMS | Encounter Summary ---
Demographics + + + | Address | [address] | | | [place] [address] | + + + | Home Phone [...] Team Providers + +------+ + | Care Chicle Grinder Feeder Name | Role | Phone | [...] [address] | | | | | | [place], [place] | | | | | | [address] | | | | | | [phone] | | | +--------+ + + + [...] Northeast | | | | | | [address] | | | | | | [place], [place] | | | | | | [address] | | | | | | [phone] | | | | | | | | +--------+---------+ + + + documented as of this encounter Visit Diagnoses Not on filedocumented in this encounter"
--- OUTSIDE RECORDS SUMMARY | ~2019-05-17 | XMS | Encounter Summary ---
Demographics + + + | Address | [address] | | | [place] [address] | + + + | Home Phone [...] Team Providers + +------+ + | Care Superannuation Funds Manager Name | Role | Phone | [...] [address] | | | | | [address] | [place], [place] | | | | | [address] | [address] | | | | | Debi Mailcode: | [phone] | | | | | [facility] | | | | | | [facility], | | | | | | [place] [address] | | | | | | [phone] | | | +--------+--------+ + + + [...] Rd | | | | | | [place] | | | | | | [address] | | | | | | [phone] | | | | | | | | +--------+---------+ + + + documented as of this encounter Visit Diagnoses Not on filedocumented in this encounter"
--- OUTSIDE RECORDS SUMMARY | ~2019-05-17 | XMS | Encounter Summary ---
Demographics + + + | Address | [address] | | | [place] [address] | + + + | Home Phone [...] Team Providers + +------+ + | Care Cement Sprayer Helper Name | Role | Phone | + +------+ + | Zayda Hniton | PCP | | + +------+ + Encounter Details +--------+ + + + + | Date | Type | Department | Care Team | Description | +--------+ + + + + | 04/09/ | Pharmacy | Specialty Pharmacy | | | | 2015 | Visit | Services [address] | | | | | | [address] | | | | | | [place], [place] | | | | | | [address] | | | | | | [phone] | | | +--------+ + + + [...] | | | | | | [place], [place] | | | | | | [address] | | | | | | [phone] | | | | | | | | +--------+---------+ + + + documented as of this encounter Visit Diagnoses Not on filedocumented in this encounter"
--- OUTSIDE RECORDS SUMMARY | ~2019-05-17 | XMS | Encounter Summary ---
Demographics + + + | Address | [address] | | | [place] [address] | + + + | Home Phone [...] Team Providers + +------+ + | Care Lot Associate Name | Role | Phone | [...] Rd | Tacrolimus) | | | | [facility] | [place], [place] | | | | | [address] | [address] | | | | | [facility] Mailcode: | [phone] | | | | | [facility] | | | | | | [facility], | | | | | | [place] [address] | | | | | | [phone] | | | +--------+ + + + [...] Rd | | | | | | [place] | | | | | | [address] | | | | | | [phone] | | | | | | | | +--------+---------+ + + + documented as of this encounter Visit Diagnoses Not on filedocumented in this encounter"
--- OUTSIDE RECORDS SUMMARY | ~2019-05-17 | XMS | Encounter Summary ---
Demographics + + + | Address | [address] | | | [place] [address] | + + + | Home Phone [...] Team Providers + +------+ + | Care Ride Mechanic Name | Role | Phone | [...] Rd | | | | | | [place], [place] | | | | | | [address] | | | +--------+ + + + [...] 2019 | Visit | Malignancy | [address] [facility] [address] | | | | | | [address] | | | | | | [place] | | | | | | [address] | | | | | | [phone] | | | | | | | | +--------+---------+ + + + documented as of this encounter Visit Diagnoses Not on filedocumented in this encounter"
--- OUTSIDE RECORDS SUMMARY | ~2019-05-17 | XMS | Encounter Summary ---
Demographics + + + | Address | [address] | | | [place] [address] | + + + | Home Phone [...] Providers + +------+ + | Care Park Activities Coordinator Name | Role | Phone | + +------+ + | Zayda Hinton | PCP | | + +------+ + Encounter Details +--------+ + + + + | Date | Type | Department | Care Team | Description | +--------+ + + + + | 02/10/ | Pharmacy | Specialty Pharmacy | | | | 2015 | Visit | Services [address] | | | | | | [address] | | | | | | [place], [place] | | | | | | [address] | | | | | | [phone] | | | +--------+ + + + [...] | | | | | | [place], [place] | | | | | | [address] | | | | | | [phone] | | | | | | | | +--------+---------+ + + + documented as of this encounter Visit Diagnoses Not on filedocumented in this encounter"
--- OUTSIDE RECORDS SUMMARY | ~2019-05-17 | XMS | Encounter Summary ---
Demographics + + + | Address | [address] | | | [place] [address] | + + + | Home Phone [...] Team Providers + +------+ + | Care Certified Public Accountant Name | Role | Phone | + [...] [address] | | | | | [address] | [place], [place] | | | | | Mailcode: [place] | [address] | | | | | for Health and | [phone] | | | | | [address] [address] | | | | | | [place], [place] | | | | | | [address] | | | | | | [phone] | | | +--------+ + + + [...] Rd | | | | | | [place], [place] | | | | | | [address] | | | | | | [phone] | | | | | | | | +--------+---------+ + + + documented as of this encounter Visit Diagnoses Not on filedocumented in this encounter"
--- OUTSIDE RECORDS SUMMARY | ~2019-05-17 | XMS | Encounter Summary ---
Demographics + + + | Address | [address] | | | [place] [address] | + + + | Home Phone [...] Team Providers + +------+ + | Care Carpet Technician Name | Role | Phone | + +------+ + | Zayda Hinton | PCP | | + +------+ + Encounter Details +--------+ + + + + | Date | Type | Department | Care Team | Description | +--------+ + + + + | 05/29/ | Pharmacy | Specialty Pharmacy | | | | 2015 | Visit | Services [address] | | | | | | [address] | | | | | | [place], [place] | | | | | | [address] | | | | | | [phone] | | | +--------+ + + + [...] 2019 | Visit | Malignancy | [address] [facility] | | | | | | [address] | | | | | | [place], [place] | | | | | | [address] | | | | | | [phone] | | | | | | | | +--------+---------+ + + + documented as of this encounter Visit Diagnoses Not on filedocumented in this encounter"
--- OUTSIDE RECORDS SUMMARY | ~2019-05-17 | XMS | Encounter Summary ---
Demographics + + + | Address | [address] | | | [place] [address] | + + + | Home Phone [...] Providers + +------+ + | Care Principal Android Developer Name | Role | Phone | [...] | | | | | | [place], | | | | | | | [place] | | | | | | | [address] | | | | | | | Phone: | | | | | | | [phone] | | | | | | | Fax: | | | | | | | [phone] | +--------+--------+ + + + + Encounter [...] (HCC) (Primary Dx) | | | | [facility] | [place], [place] | | | | | [address] | [address] | | | | | [place] Burger Mailcode: | [phone] | | | | | [facility] | | | | | | [place], | | | | | | [place] [address] | | | | | | [phone] | | | +--------+---------+ + + + [...] of sun exposure as this can cause ywcyr-lhkkdw-awyt disease. Wear a hat, sungla sses, and [...] MM URD (DPB1 permissive antigen mismatch, male, 1514-4872-2) Identifying Data: Khurram Kelly is a 25 [...] his L ankle. He was evaluated at [facility] on 06/[address] angiogram negative [...] He was referred to [facility] for further evaluation and man agement of his newly dx'd AML. Pt was admitted to [facility] on 05/26/15. Peripheral blood was sent for [...] CD34, variable CD56, variable CD117, and dim EV684-gjmkc mickey; promonocyte immunophenotype (70% by flow): CD11b, [...] went on a 3 mile walk around [place] over the weekend. 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
--- OUTSIDE RECORDS SUMMARY | ~2019-05-17 | XMS | Encounter Summary ---
Demographics + + + | Address | [address] | | | [place] [address] | + + + | Home Phone [...] Team Providers + +------+ + | Care Clay Dry Press Helper Name | Role | Phone | [...] [address] | | | | | [place] | | [address] | | | | | [address] | | [address] [place], | | | | | INJECTION, 1 | | [place] | | | | | [place] | | [address] | | | | | CHM,IV | | Phone: | | | | | INFSN,1 HR | | [phone] | | | | | [place] CHM,IV | | Fax: | | | | | INFSN,ADDL | | [phone] | | | | | HR | [...] | | | | | | [facility] [place] | | | | | | [place], | | | | | | [place] [address] | | | | | | [phone] | | | +--------+ + + + [...] [place] | | | | | | [address] | | | | | | [phone] | | | | | | | [...] the | | | | PST | ([facility]) | results section. | + +--------+ + + + | TYPE AND SCREEN | Urgent | 07/23/2015 | Acute myeloid | Results for this | | | | 2:00 PM | leukemia (AML), M4 | procedure are in the | | | | PST | ([facility]) | results section. | + +--------+ + + + | ABO & RH TYPE | Urgent | 07/23/2015 | Acute myeloid | Results for this | | | | 2:00 PM | leukemia (AML), M4 | procedure are in the | | | | PST | ([facility]) | results section. | + +--------+ + + + | RBC MORPHOLOGY | Routin | 07/23/2015 | Acute myeloid | Results for this | | | e | 12:25 PM | leukemia (AML), M4 | procedure are in the | | | | PST | ([facility]) | results section. | + +--------+ + + + | CBC AND AUTO DIFF | Urgent | 07/23/2015 | Acute myeloid | Results for this | | | | 12:25 PM | leukemia (AML), M4 | procedure are in the | | | | PST | ([facility]) | results section. | + +--------+ + + + | CBC, WITH | Urgent | 07/23/2015 | Acute myeloid | Results for this | | DIFFERENTIAL | | 12:25 PM | leukemia (AML), M4 | procedure are in the | | | | PST | ([facility]) | results section. | + [...] [facility] | [address] | [place] [address] | | | SERVICES, | [address] [...] [facility] | [address] | [place] [address] | | | SERVICES, | [address] [...] [facility] | [address] | [place] [address] | | | SERVICES, CORE | PARK [...] [facility] | [address] | [place] [address] | | | SERVICES, CORE | [address] [...]
--- OUTSIDE RECORDS SUMMARY | ~2019-05-17 | XMS | Encounter Summary ---
Demographics + + + | Address | [address] | | | [place] [address] | + + + | Home Phone [...] Team Providers + +------+ + | Care Clipper Operator Name | Role | Phone | + +------+ + | Pending Pcp Addition | PCP | Unavailable | + +------+ + Reason for Visit + + + | Reason | Comments | + + + | Schedule labs | trifusion | + + + | Follow-up visit | JULIANA Jimenez | + + + | Dressing change | Trifusion | + + + | Intravenous infusion | magnesium | + + + | Hydration | NS | + + + Office Visit - [...] | | | | | achieved | [place], [place] | [id number] | | | | | remission | [address] | [place] | | | | | | Phone: | Pavilion | | | | | Procedures | [phone] | [place], [place] | | | | | Post BMT | Fax: | [address] | | | | | Auth to | [phone] | Phone: | | | | | included | | [phone] | | | | | facility, | | Fax: | | | | | diagnostics, | | [phone] | | | | | office | | | | | | | visits and | | | | | | | surgery | | | +--------+---------+ + + + + Encounter Details +--------+ + + + + | Date | Type | Department | Care Team | Description | +--------+ + + + + | 09/16/ | Clinical | Center for | | Schedule labs | | 2016 | Support | Hematologic | | (trifusion); | | | Staff | [facility] at [facility] | | Follow-up visit | | | | [address] | | (JULIANA Jimenez); | | | | [place]bi [place] Mailcode: | | Dressing change | | | | [facility] [place] | | (Trifusion); | | | | [place], | | Intravenous infusion | | | | [place] [address] | | (magnesium); | | | | [phone] | | Hydration (NS ) | +--------+ + + + + Social [...] encounter Progress Notes Pricilla Guy RN - 09/17/2015 12:06 PM PSTINFUSION/TRANSFUSION NURSING NOTE Name: Khurram Kelly Date: 09/17/2015 Provider: Yari Garcia MD/ JULIANA Jimenez Subjective: Patient arrived to clinic ambulatory with spouse. 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 Reports feeling good. Energy is getting better and states he feels stronger each day. 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 He was started on prednisone and is applying acetonide 0.1 % topical cream as prescribe d. Patient feels it is about the same. Denies any itching to affected area. Patient denies a ny fevers, chills, SOB, nausea, vomiting, diarrhea, pain, bleeding, urinary issues, edema, a nd neuropathy. Patient reports drinking approximately 1 L of fluids daily and states his diet is OK. Repor ts feeling hungry but that food does not taste good. States he has been eating a little bett er over the last few days. Past illnesses: Khurram has a past medical [...] for provider visit today with JULIANA Jimenez. Magnesium: Magnesium Sulfate 2 gm in 50 mL NS infused over 1 hours per supportive care orders for a ma gnesium level of 1.7. For infusion details, see MAR Dressing Change: Trifusion intact to left anterior chest wall [...] Heparin. Patient tolerated procedure witho ut difficulty. Narrative: Patient reports drinking approximately 1 L daily over the last week. States noth ing tastes good. Patient denies any weakness or dizziness. Per orders of JULIANA Jimenez a 1L NS bolus was given over 1 hour. Patient was seen by JULIANA Jimenez for OV. No other inf usions/transfusions needed. Labs printed and reviewed with patient. Patient discharged ambulatory with spouse. Reviewed post transplant precautions and patient and spouse verbalize understanding. Pricilla Guy RN documented in this encounter [...] Rd | | | | | | [place], [place] | | | | | | [address] | | | | | | [phone] | | | | | | | | +--------+---------+ + + + documented as of this encounter Procedures + +--------+ + + + | Procedure Name | Priori | Date/Time | Associated Diagnosis | Comments | | | ty | | | | + +--------+ + + + | CBC+DIFF,POC | Urgent | 09/17/2015 | Acute myeloid | Results for this | | | | 11:32 AM | leukemia (AML), M4 | procedure are in the | | | | PST | ([facility])- primary | results section. 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 | | | | | | (HCC) | | + +--------+ + + + | BMP + MAG, POC CHM | Urgent | 09/17/2015 | Acute myeloid | Results for this | | | | 11:30 AM | leukemia (AML), M4 | procedure are in the | | | | PST | ([facility])- primary | results section. 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 | | | | | | (HCC) | | + +--------+ + + + | TREATMENT PARAMETERS | Routin | 09/17/2015 | Acute myeloid | | | #2 - [place] | e | 11:14 AM | leukemia (AML), M4 | | | | | PST | ([facility])- primary | | | | | | induction failure | | + +--------+ + + + | TREATMENT PARAMETERS | Routin | 09/17/2015 | Acute myeloid | | | #2 - [place] | e | 11:14 AM | leukemia (AML), M4 | | | | | PST | (HCC)- primary | | | | | | induction failure | | + +--------+ + + + | TREATMENT PARAMETERS | Routin | 09/17/2015 | Acute myeloid | | | #2 - [place] | e | 11:14 AM | leukemia (AML), M4 | | | | | PST | ([facility])- primary | | | | | | induction failure | | + +--------+ + + + | TREATMENT PARAMETERS | Routin | 09/17/2015 | Acute myeloid | | | #2 - [place] | e | 11:14 AM | leukemia (AML), M4 | | | | | PST | (HCC)- primary | | | | | | induction failure | | + +--------+ + + + | TREATMENT PARAMETERS | Routin | 09/17/2015 | Acute myeloid | | | #2 - [place] | e | 11:14 AM | leukemia (AML), M4 | | | | | PST | ([facility])- primary | | | | | | induction failure | | + +--------+ + + + | NURSING | Routin | 09/17/2015 | Acute myeloid | | | COMMUNICATION #3 - | e | 11:14 AM | leukemia (AML), M4 | | | [place] | | PST | ([facility])- primary | | | | | | induction failure | | + +--------+ + + + | NURSING | Routin | 09/17/2015 | Acute myeloid | | | COMMUNICATION #2 - | e | 11:14 AM | leukemia (AML), M4 | | | [place] | | PST | ([facility])- primary | | | | | | induction failure | | + +--------+ + + + | NURSING | Routin | 09/17/2015 | Acute myeloid | | | COMMUNICATION #1 - | e | 11:14 AM | leukemia (AML), M4 | | | [place] | | PST | ([facility])- primary | | | | | | induction failure | | + +--------+ + + + | TREATMENT PARAMETERS | Routin | 09/17/2015 | Acute myeloid | | | #1 - [place] | e | 11:14 AM | leukemia (AML), M4 | | | | | PST | (HCC)- primary | | | | | | induction failure | | + +--------+ + + + | TREATMENT PARAMETERS | Routin | 09/17/2015 | Acute myeloid | | | #1 - [place] | e | 11:14 AM | leukemia (AML), M4 | | | | | PST | (HCC)- primary | | | | | | induction failure | | + +--------+ + + + | LIVER SET | Urgent | 09/17/2015 | Acute myeloid | Results for this | | (AST,ALT,BILI | | 11:14 AM | leukemia (AML), M4 | procedure are in the | | TOTAL,BILI | | PST | (HCC)- primary | results section. | | DIRECT,ALK | | | induction failure | | | PHOS,ALB,PROT TOTAL) | | | S/P allogeneic bone | | | | | | marrow transplant | | | | | | (HCC) | | + +--------+ + + + | TACROLIMUS, WHOLE | Urgent | 09/17/2015 | Acute myeloid | Results for this | | BLOOD | | 11:14 AM | leukemia (AML), M4 | procedure are in the | | | | PST | ([facility])- primary | results section. 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 | | | | | | (HCC) | | + +--------+ + + + | PHOSPHORUS, PLASMA | Urgent | 09/17/2015 | Acute myeloid | Results for this | | | | 11:14 AM | leukemia (AML), M4 | procedure are in the | | | | PST | ([facility])- primary | results section. 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 | | | | | | ([facility]) | | + +--------+ + + + documented in this encounter Results CBC+DIFF,POC (09/17/2015 11:32 AM [...] [facility] | [address] | [place], [place] | | | [facility] CARE | [address] | [address] | | | TESTS | | | [...] + + + | YESSICA SORTO | [address] | [place], [place] | | | RUTHIE CARTER OF CARE | [address] | [address] | | | TESTS | | | [...] [facility] | [address] | [place] [address] | | | SERVICES, CORE | PARK [...] [facility] | [address] | [place] [address] | | | SERVICES, CORE | PARK [...] | + + + + + | [facility] | [address] | [place] [address] | | | SERVICES, SPECIAL | PARK [...] 10 unit/mL IV flush | Given | 09/17/19 | 50 Units | | | | syringe 50 Units 50 Units, | | 16 1:01 | | | | | Intracatheter, NEEDED, | | PM PST | | | | | Starting Sun09/17/15 at 1318, | | | | | | | Until Sun09/17/15 at 1930, line | | | | | | | patency | | | | | | + +--------+ + +------+------+ +---+---+ | | | +---+---+ + +---------+ +-----+---+---+ | magnesium sulfate in water IV | New Bag | 09/17/19 | 2 g | | | | (RTU) 2 g 2 g, intravenous, | | 16 11:45 | | | | | ONCE, 1 dose, 09/17/15 at 1130 | | AM PST | | | | + +---------+ +-----+---+---+ +---+---+ | | | +---+---+ + +---------+ + +---+---+ | NaCl 0.9 % solution 1,000 mL, | New Bag | 09/17/19 | 1,000 mL | | | | intravenous, ONCE, 1 dose, Sun | | 16 12:00 | | | | | 09/17/15 at 1245 | | PM PST | | | | + +---------+ + +---+---+ +---+---+ | | | +---+---+ documented in this encounter"
--- OUTSIDE RECORDS SUMMARY | ~2019-05-17 | XMS | Encounter Summary ---
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 -Patient has [facility] appointment today following this visit. -Reviewed check-in location for morning of surgery. [facility] with check-in time. -Patient informed of follow up visit on 09/20/16 Instructed patient to contact the clinic with any further questions or concerns prior to douglass rgery. Janette Das PA-C ORTHOPAEDICS AT [address] Mail[address]: [id number] [place] [address] documented i n this encounter [...] | Visit | Malignancy | [address] [facility] [address] | | | | | | [address] | | | | | | [place], [place] | | | | | | [address] | | | | | | [phone] | | | | | | | [...]
--- OUTSIDE RECORDS SUMMARY | ~2019-05-17 | XMS | Encounter Summary ---
Demographics + + + | Address | [address] | | | [place] [address] | + + + | Home Phone [...] Team Providers + +------+ + | Care Tutor Name | Role | Phone | + [...] | | | | | remission | [address] | [place] | | | | | | Phone: | Pavilion | | | | | Procedures | [phone] | [place], [place] | | | | | Post BMT | Fax: | [address] | | | | | Auth to | [phone] | Phone: | | | | | included | | [phone] | | | | | facility, | | Fax: | | | | | diagnostics, | | [phone] | | | | | office | | | | | | | visits and | | | | | | | surgery | | | +--------+---------+ + + + + Encounter Details +--------+ + + + + | Date | Type | Department | Care Team | Description | +--------+ + + + + | 04/19/ | Diagnostic | Center for | | Lab Draw | | 2017 | Visit | Hematologic | | | | | | Malignancies at | | | | | | [facility] | | | | | | [address] | | | | | | [place] Mailcode: | | | | | | [facility] | | | | | | [place], | | | | | | [place] [address] | | | | | | [phone] | | | +--------+ + + + [...] this encounter Progress Notes Lincoln Hermosillo - 04/19/2017 10:00 AM PDTRight AC accessed with a [address] | | | | | | [place], [place] | | | | | | [address] | | | | | | [phone] | | | | | | | | +--------+---------+ + + + documented as of this encounter Procedures + +--------+ + + + | Procedure Name | Priori | Date/Time | Associated Diagnosis | Comments | | | ty | | | | + +--------+ + + + | CMP, POC (BMP+LFT) | Urgent | 04/19/2017 | S/P allogeneic | Results for this | | | | 11:12 AM | bone marrow | procedure are in the | | | | PDT | transplant (HCC) | results section. | + +--------+ + + + | CBC AND AUTO DIFF | Urgent | 04/19/2017 | S/P allogeneic | Results for this | | | | 10:26 AM | bone marrow | procedure are in the | | | | PDT | transplant ([facility]) | results section. | + +--------+ + + + | CBC, WITH | Urgent | 04/19/2017 | S/P allogeneic | Results for this | | DIFFERENTIAL | | 10:26 AM | bone marrow | procedure are in the | | | | PDT | transplant ([facility]) | results section. | + +--------+ + + + | TACROLIMUS, WHOLE | Urgent | 04/19/2017 | S/P allogeneic | Results for this | | BLOOD | | 10:26 AM | bone marrow | procedure are in the | | | | PDT | transplant ([facility]) | results section. | + +--------+ + + + | MAGNESIUM, PLASMA | Urgent | 04/19/2017 | S/P allogeneic | Results for this | | | | 10:26 AM | bone marrow | procedure are in the | | | | PDT | transplant (HCC) | results section. | + +--------+ + + + documented in this encounter Results CMP, POC (BMP+LFT) (04/19/2017 11:12 AM PDT) [...] [facility] | [address] | [place], [place] | | | RUTHIE CARTER OF KRISTA | [facility] | [address] | | | TESTS | | | | + + + + + CBC AND AUTO DIFF (04/19/2017 10:26 AM PDT) + + + + + + | Component | Value | Ref Range | Performed | Pathologist | | | | | At | Signature | + + + + + + | WHITE CELL | 13.43 (H) | 3.50 - 10.80 | [facility] | | | COUNT | | K/cu mm | LABORATORY | | | | | | SERVICES, | | | | | | CORE | | + + + + + + | RED CELL | 4.62 | 4.50 - 6.00 | [facility] | | | COUNT | | M/cu mm | LABORATORY | | | | | | SERVICES, | | | | | | CORE | | + + + + + + | HEMOGLOBIN | 14.6 | 13.5 - 17.5 | [facility] | | | | | g/dL | LABORATORY | | | | | | SERVICES, | | | | | | CORE | | + + + + + + | HEMATOCRIT | 43.4 | 41.0 - 53.0 % | [facility] [...] + + + + | MCHC | 33.6 | 33.0 - 35.5 | [facility] | [...] + + + + | PLATELET | 295 | 150 - 400 K/cu | [facility] [...] + + + + | NEUTROPHIL | 77.1 (H) | 50.0 - 70.0 % | [facility] | | | % | | | LABORATORY | | | | | | SERVICES, | | | | | | CORE | | + + + + + + | LYMPHOCYTE | 16.5 (L) | 18.0 - 42.0 % | [facility] | | | % | | | LABORATORY | | | | | | SERVICES, | | | | | | CORE | | + + + + + + | MONOCYTE % | 4.8 | 3.5 - 9.0 % | [facility] [...] + + + + | NEUTROPHIL | 10.35 (H) | 1.80 - 7.70 | [facility] | | | # | | K/cu mm | LABORATORY | | | | | | SERVICES, | | | | | | CORE | | + + + + + + | LYMPHOCYTE | 2.21 | 1.00 - 4.80 | [facility] | [...] + | [facility] | [address] | [place] [address] | | | SERVICESINDRA | [address] [...] | Test performed by immunoassay using Blanton Loom Cleaner i2000. . | [facility] | | Samples [...] | + + + + + | [facility] | [address] | [place] [address] | | | SERVICES, SPECIAL | [address] [...] | | LABORATORY | | | SERVICES, INDRA | + + + + + + + + | Performing | Address | City/State/Zipcode | Phone Number | | Organization | | | | + + + + + | [facility] | [address] | [place] [address] | | | SERVICES, INDRA | [address] | | | + + + + + documented in this encounter Visit Diagnoses + + | Diagnosis | + + | 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
--- OUTSIDE RECORDS SUMMARY | ~2019-05-17 | XMS | Encounter Summary ---
Demographics + + + | Address | [address] | | | [place] [address] | + + + | Home Phone [...] Team Providers + +------+ + | Care Relay Assembler Name | Role | Phone | [...] [address] | | | | | [place] | | [address] | | | | | [address] | | [address] [place], | | | | | INJECTION, 1 | | [place] | | | | | [place] | | [address] | | | | | CHM,IV | | Phone: | | | | | INFSN,1 HR | | [phone] | | | | | [place] CH[place] | | Fax: | | | | | INFSN,ADDL | | [phone] | | | | | [place] | [...] | | | | | | [place], | | | | | | [place] [address] | | | | | | [phone] | | | +--------+ + + + [...] 2019 | Visit | Malignancy | [address] [facility] | | | | | | [address] | | | | | | [place], [place] | | | | | | [address] | | | | | | [phone] | | | | | | | [...] | | PST | ([facility]) | results section. | + +--------+ + + + | CMP, POC (BMP+LFT) | Routin | 07/25/2015 | Acute myeloid | Results for this | | | e | 10:17 AM | leukemia (AML), M4 | procedure are in the | | | | PST | ([facility]) | results section. | + +--------+ + + + | TREATMENT PARAMETERS | Routin | 07/25/2015 | Acute myeloid | | | #2 - [place] | e | 10:01 AM | leukemia (AML), M4 | | | | | PST | ([facility]) | | + +--------+ + + [...] | | PST | ([facility]) | | + +--------+ + + + | NURSING | Routin | 07/25/2015 | Acute myeloid | | | COMMUNICATION #3 - | e | 10:01 AM | leukemia (AML), M4 | | | [place] | | PST | ([facility]) | | + +--------+ + + [...] | | PST | ([facility]) | | + +--------+ + + + | TREATMENT PARAMETERS | Routin | 07/25/2015 | Acute myeloid | | | #1 - [place] | e | 10:01 AM | leukemia (AML), M4 | | | | | PST | ([facility]) | | + +--------+ + + + | RBC MORPHOLOGY | Routin | 07/25/2015 | Acute myeloid | Results for this | | | e | 10:01 AM | leukemia (AML), M4 | procedure are in the | | | | PST | ([facility]) | results section. | + +--------+ + + + | CBC AND AUTO DIFF | Urgent | 07/25/2015 | Acute myeloid | Results for this | | | | 10:01 AM | leukemia (AML), M4 | procedure are in the | | | | PST | ([facility]) | results section. | + +--------+ + + + | MANUAL DIFFERENTIAL | Routin | 07/25/2015 | Acute myeloid | Results for this | | | e | 10:01 AM | leukemia (AML), M4 | procedure are in the | | | | PST | ([facility]) | results section. | + +--------+ + + + | CBC, WITH | Urgent | 07/25/2015 | Acute myeloid | Results for this | | DIFFERENTIAL | | 10:01 AM | leukemia (AML), M4 | procedure are in the | | | | PST | ([facility]) | results section. | + +--------+ + + + | ANTIBODY SCREEN | Routin | 07/25/2015 | Acute myeloid | Results for this | | | e | 10:01 AM | leukemia (AML), M4 | procedure are in the | | | | PST | ([facility]) | results section. | + +--------+ + + + | TYPE AND SCREEN | Routin | 07/25/2015 | Acute myeloid | Results for this | | | e | 10:01 AM | leukemia (AML), M4 | procedure are in the | | | | PST | ([facility]) | results section. | + +--------+ + + + | ABO & RH TYPE | Routin | 07/25/2015 | Acute myeloid | Results for this | | | e | 10:01 AM | leukemia (AML), M4 | procedure are in the | | | | PST | ([facility]) | results section. | + +--------+ + + + | LDH TOTAL, PLASMA | Routin | 07/25/2015 | Acute myeloid | Results for this | | | e | 10:01 AM | leukemia (AML), M4 | procedure are in the | | | | PST | ([facility]) | results section. | + +--------+ [...] + + + + | PRODUCT | [id number] | | [facility] | | | UNIT [...] + + + + | EXPIRATION | [id number] | | [facility] | | | DATE [...] + + + + | BLOOD | [id number] | | [facility] | | | PRODUCT [...] DEPARTMENT OF | [address] | [place] [address] | | | PATHOLOGY | [address] [...] SORTO | [address] | [place], [place] | | | RUTHIE CARTER OF KRISTA | [facility] | [address] | | | TESTS | | | [...] [facility] | [address] | [place] [address] | | | SERVICES, CORE | [address]ARK [...] [employer] | [address] | [place] [address] | | | SERVICES, CORE | PARK [...] [facility] | [address] | [place] [address] | | | SERVICES, CORE | PARK [...] FOR BOYS | [address] | [place] [address] | | | SERVICES, | [address] [...] | [address] | [place] [address] | | | SERVICES, | [address] [...] | + + + + + | [facility] | [address] | [place] [address] | | | SERVICES, INDRA | [address] [...]
--- OUTSIDE RECORDS SUMMARY | ~2019-05-17 | XMS | Encounter Summary ---
Demographics + + + | Address | [address] | | | [place] [address] | + + + | Home Phone [...] Team Providers + +------+ + | Care Job Press Operator Name | Role | Phone [...] | | | | | | [place], | | | | | | | [place] | | | | | | | [address] | | | | | | | Phone: | | | | | | | [phone] | | | | | | | Fax: | | | | | | | [phone] | +--------+--------+ + + + + Encounter [...] | | visit | | | | [address] | | | | | | [place] Mailcode: | | | | | | [id number] | | | | | | [place], | | | | | | [place] [address] | | | | | | [phone] | | | +--------+ + + + [...] + documented in this encounter Progress Notes Jesscia Ramirez, ZAFAR - 03/06/2016 11:10 AM PDTPatient [...] Hospital | | | | | | [facility] | | | | | | [place], [place] | | | | | | [address] | | | | | | [phone] | | | | | | | [...] M4 | | | | | | ([facility])- [...] M4 | | | | | | ([facility])- primary | | | | | | induction failure | | + +--------+ + + + | CMV PCR | Routin | 03/06/2016 | S/P allogeneic | Results for this | | QUANTITATION, PLASMA | e | 9:07 AM | bone marrow | procedure are in the | | | | PDT | transplant ([facility]) | results section. | | | | [...] M4 | | | | | | ([facility])- [...] M4 | | | | | | ([facility])- [...] M4 | | | | | | ([facility])- [...] [facility] | [address] | [place], [place] | | | RUTHIE CARTER OF CARE | [address] | [address] | | | TESTS | | | [...] + + | YESSICA SORTO | [address] | [place], [place] | | | [facility] POINT OF CARE | [address] | [address] | | | TESTS | | | [...] | + + + + + | [facility] | [address] | [place] [address] | | | SERVICES, CORE | [address] [...] 2 fold may not reflect true | [facility] | | biological changes and must [...] | | | characteristics determined by the [facility] | | | Molecular Diagnostic Center. It has not been cleared or approved by | | | the Food and Drug Administration. FDA approval is not required for | | | clinical use of this test, and therefore validation was done as | | | required under the requirements of the Clinical Laboratory Improvement | | | Act of 1988. The [facility] Molecular | | | Diagnostic Center is a fully licensed and/or accredited clinical | | | laboratory under CLIA, CAP, and the [facility]. | | + + + + + + + + | Performing | Address | City/State/Zipcode | Phone Number | | Organization | | | | + + + + + | [facility] | [address], | [place] [address] | | | DIAGNOSTIC | [address] [...]
--- OUTSIDE RECORDS SUMMARY | ~2019-05-17 | XMS | Encounter Summary ---
Demographics + + + | Address | [address] | | | [place] [address] | + + + | Home Phone [...] Team Providers + +------+ + | Care Banquet Line Cook Name | Role | Phone | + +------+ + | Pending Pcp Addition | PCP | Unavailable | + +------+ + Reason for Visit + + + | Reason | Comments | + + + | Lab Draw | [facility] | + + + | Transplant follow-up [...] | | | | | remission | [address] | [facility] | | | | | | Phone: | Pavilion | | | | | Procedures | [phone] | [place], [place] | | | | | Post BMT | Fax: | [address] | | | | | Auth to | [phone] | Phone: | | | | | included | | [phone] | | | | | facility, | | Fax: | | | | | diagnostics, | | [phone] | | | | | office | | | | | | | visits and | | | | | | | surgery | | | +--------+---------+ + + + + Encounter Details +--------+ + + + + | Date | Type | Department | Care Team | Description | +--------+ + + + + | 10/20/ | Clinical | Center for | | Lab Draw | | 2016 | Support | Hematologic | | ([facility]); | | | Staff | [facility] | | Transplant follow-up | | | | [address] | | | | | | [place] Mailcode: | | | | | | [address] [facility] | | | | | | [place], | | | | | | [place] [address] | | | | | | [phone] | | | +--------+ + + + [...] as of this encounter Progress Notes Rupa Lantigua, ZAFAR - 10/21/2015 10:47 AM PDT INFUSION/TRANSFUSION NURSING NOTE Name: Khurram Kelly Date: 10/21/2015 Provider: Em Saunders PA-C Subjective: Patient reports that he continues to have a rash to his abdomin- denies itching , using Kenalog cream to area. He reports that the rash is unchanged. He denies fevers, ch ills, nausea, vomiting, diarrhea and bleeding. He reports that he is drinking 2 liters of f luids daily and eating well. Past illnesses: Khurram has a past medical [...] in Clinic Today refer to MAR Narrative: [facility] accessed per protocol. Good blood return noted. Appropriate waste d iscarded. Labs drawn and sent. [facility] pulse flushed with 20 mL NS and 5 mL of 10 units /mL Heparin- red lumen. White and blue lumens pulse flushed with 5 mL of 10 units/mL Hepari n and Posiflow valves changed. Patient scheduled for provider visit today with Em Saunders PA-C. CBC with diff last 72 hours (or 3 results) Recent Labs 10/21/15 1040 WBC 7.0 HB 11.6* HCT 34.6* PLT 115* MONOPERC 6.3 BASOPERC 0.4 EOSPERC 4.0* Chemistries: Last 72 Hours (or 3 results): Recent Labs 10/21/15 1058 NA 142 K 4.1 CL 104 BICARB 26 BUN 18 CR 0.8 GLU 118* CA 9.4 MG 1.8 No supportive care infusion needed. He is aware that he should call feeder operator automatic/manager professional development prov ider for any complaints. Post Infusion Pain score: 0 Assessment: Tolerated procedure. Patient discharged from clinic, left ambulatory accompani ed by his . RTC on 10/25/15 for labs and follow up. 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 | | | | | | (HCC) | | + +--------+ + + + | LIVER SET | Urgent | 10/21/2015 | Acute myeloid | Results for this | | (AST,ALT,BILI | | 10:35 AM | leukemia (AML), M4 | procedure [...] + | TACROLIMUS, WHOLE | Urgent | 10/21/2015 | Acute myeloid | Results for this | | BLOOD | | 10:35 AM | leukemia (AML), M4 | procedure are in the | | | | PDT | ([facility])- primary | results section. 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 | | | | | | (HCC) | | + +--------+ + + + | PHOSPHORUS, PLASMA | Urgent | 10/21/2015 | Acute myeloid | Results for this | | | | 10:35 AM | leukemia (AML), M4 | procedure [...] + | TREATMENT PARAMETERS | Routin | 10/21/2015 | Acute myeloid | | | #2 - BEACON | e | 10:28 AM | leukemia (AML), M4 | | | | | PDT | ([facility])- primary | | | | | | induction failure | | + +--------+ + + + | TREATMENT PARAMETERS | Routin | 10/21/2015 | Acute myeloid | | | #2 - BEACON | e | 10:28 AM | leukemia (AML), 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 | | | | | | induction failure | | + +--------+ + + + | TREATMENT PARAMETERS | Routin | 10/21/2015 | Acute myeloid | | | #2 - BEACON | e | 10:28 AM | leukemia (AML), 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 | | | | | | induction failure | | + +--------+ + + + | TREATMENT PARAMETERS | Routin | 10/21/2015 | Acute myeloid | | | #2 - BEACON | e | 10:28 AM | leukemia (AML), 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 | | | | | | induction failure | | + +--------+ + + + | TREATMENT PARAMETERS | Routin | 10/21/2015 | Acute myeloid | | | #2 - BEACON | e | 10:28 AM | leukemia (AML), 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 | | | | | | induction failure | | + +--------+ + + + | NURSING | Routin | 10/21/2015 | Acute myeloid | | | COMMUNICATION #3 - | e | 10:28 AM | leukemia (AML), M4 | | | BEACON | | PDT | (HCC)- primary | | | | | | induction failure | | + +--------+ + + + | NURSING | Routin | 10/21/2015 | Acute myeloid | | | COMMUNICATION #2 - | e | 10:28 AM | leukemia (AML), M4 | | | [facility] | | PDT | ([facility])- primary | | | | | | induction failure | | + +--------+ + + + | NURSING | Routin | 10/21/2015 | Acute myeloid | | | COMMUNICATION #1 - | e | 10:28 AM | leukemia (AML), M4 | | | [place] | | PDT | ([facility])- primary | | | | | | induction failure | | + +--------+ + + + | TREATMENT PARAMETERS | Routin | 10/21/2015 | Acute myeloid | | | #1 - BEACON | e | 10:28 AM | leukemia (AML), M4 | | | | | PDT | ([facility])- primary | | | | | | induction failure | | + +--------+ + + + | TREATMENT PARAMETERS | Routin | 10/21/2015 | Acute myeloid | | | #1 - BEACON | e | 10:28 AM | leukemia (AML), 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 | | | | | | induction failure | | + +--------+ + + + documented in this encounter Results BMP + MAG, POC CHM (10/21/2015 10:58 AM PDT) + [...] [facility] | [address] | [place], [place] | | | RUTHIE CAR[facility]ARE | [address] | [address] | | | TESTS | | | [...] [facility] | [address] | [place], [place] | | | [facility]IE [facility] | [address] | [address] | | | TESTS | | | [...] | + + + + + | [facility] | [address] | [place] [address] | | | SERVICES, SPECIAL | [address] [...] [facility] | [address] | [place] [address] | | | SERVICES, CORE | WALLY [...] [facility] | [address] | [place] [address] | | | SERVICES, CORE | WALLY [...] 10 unit/mL IV flush | Given | 10/21/19 | 50 Units | | Central | | syringe 50 Units 50 Units, | | 16 10:47 | | | Line | | Intracatheter, NEEDED, 3 | | AM PDT | | | | | doses, Starting Lupe 10/21/15 at | | | | | | | 1029, Until Lupe 10/21/15 at 1047, | | | | | | | line patency | | | | | | + +--------+ + +------+ + +-------+ + +---+ + | Given | 10/21/19 | 50 Units | | Central | | | 16 10:46 | | | Line | | | AM PDT | | | | +-------+ + +---+ + | Given | 10/21/19 | 50 Units | | Central | | | 16 10:45 | | | Line | | | AM PDT | | | | +-------+ + +---+ + +---+---+ | | | +---+---+ documented in this encounter"
--- OUTSIDE RECORDS SUMMARY | ~2019-05-17 | XMS | Encounter Summary ---
Demographics + + + | Address | [address] | | | [place] [address] | + + + | Home Phone [...] Team Providers + +------+ + | Care Physical Science Aide Name | Role | Phone | + +------+ + | Pending Pcp Addition | PCP | Unavailable | + +------+ + Reason for Visit + + + | Reason | Comments | + + + | Dose Clarification | Tac | + + + Encounter Details +--------+ + + + + | Date | Type | Department | Care Team | Description | +--------+ + + + + | 11/15/ | Telephone | Center for | Yari Garcia MD | Dose Clarification | | 2016 | | Hematologic | [address] | ([place]) | | | | [facility] | [address] | | | | | [address] | [place], [place] | | | | | Debi Mailcode: | [address] | | | | | [address] | [phone] | | | | | [place], | | | | | | [place] [address] | | | | | | [phone] | | | +--------+ + + + [...] Rd | | | | | | [place], [place] | | | | | | [address] | | | | | | [phone] | | | | | | | | +--------+---------+ + + + documented as of this encounter Visit Diagnoses Not on filedocumented in this encounter"
--- OUTSIDE RECORDS SUMMARY | ~2019-05-17 | XMS | Encounter Summary ---
Demographics + + + | Address | [address] | | | [place] [address] | + + + | Home Phone [...] Team Providers + +------+ + | Care Track Equipment Operator Name | Role | Phone | + +------+ + | Zayda Hinton | PCP | | + +------+ + Encounter Details +--------+ + + + + | Date | Type | Department | Care Team | Description | +--------+ + + + + | 11/10/ | Pharmacy | Specialty Pharmacy | | | | 2015 | Visit | Services [address] | | | | | | [address] | | | | | | [place], [place] | | | | | | [address] | | | | | | [phone] | | | +--------+ + + + [...] Rd | | | | | | [place], [place] | | | | | | [address] | | | | | | [phone] | | | | | | | | +--------+---------+ + + + documented as of this encounter Visit Diagnoses Not on filedocumented in this encounter"
--- OUTSIDE RECORDS SUMMARY | ~2019-05-17 | XMS | Encounter Summary ---
Demographics + + + | Address | [address] | | | [place] [address] | + + + | Home Phone [...] Team Providers + +------+ + | Care Gang Investigator Name | Role | Phone | [...] | | | [address] | [place], [place] | | | | | [place] Mailcode: | [address] | | | | | [address] | [phone] | | | | | [place], | | | | | | [place] [address] | | | | | | [phone] | | | +--------+ + + + [...] Rd | | | | | | [place] | | | | | | [address] | | | | | | [phone] | | | | | | | | +--------+---------+ + + + documented as of this encounter Visit Diagnoses Not on filedocumented in this encounter"
--- OUTSIDE RECORDS SUMMARY | ~2019-05-17 | XMS | Encounter Summary ---
Demographics + + + | Address | [address] | | | [place] [address] | + + + | Home Phone [...] Team Providers + +------+ + | Care Biodiesel Plant Superintendent Name | Role | Phone | + +------+ + | Zayda Hinton | PCP | | + +------+ + Encounter Details +--------+ + + + + | Date | Type | Department | Care Team | Description | +--------+ + + + + | 09/12/ | Pharmacy | Specialty Pharmacy | | | | 2015 | Visit | Services [address] | | | | | | [address] | | | | | | [place], [place] | | | | | | [address] | | | | | | [phone] | | | +--------+ + + + [...] Rd | | | | | | [place], [place] | | | | | | [address] | | | | | | [phone] | | | | | | | | +--------+---------+ + + + documented as of this encounter Visit Diagnoses Not on filedocumented in this encounter"
--- OUTSIDE RECORDS SUMMARY | ~2019-05-17 | XMS | Encounter Summary ---
Demographics + + + | Address | [address] | | | [place] [address] | + + + | Home Phone [...] Providers + +------+ + | Care Farmworker Pullet Farm Name | Role | Phone | + +------+ + | Zayda Hinton | PCP | | + +------+ + Encounter Details +--------+ + + + + | Date | Type | Department | Care Team | Description | +--------+ + + + + | 03/13/ | Pharmacy | Specialty Pharmacy | | | | 2015 | Visit | Services [address] | | | | | | [address] | | | | | | [place], [place] | | | | | | [address] | | | | | | [phone] | | | +--------+ + + + [...] Rd | | | | | | [place], [place] | | | | | | [address] | | | | | | [phone] | | | | | | | | +--------+---------+ + + + documented as of this encounter Visit Diagnoses Not on filedocumented in this encounter"
--- OUTSIDE RECORDS SUMMARY | ~2019-05-17 | XMS | Encounter Summary ---
Demographics + + + | Address | [address] | | | [place] [address] | + + + | Home Phone [...] Providers + +------+ + | Care Diamond Blender Name | Role | Phone | + [...] | | | | | | [place], | | | | | | | [place] | | | | | | | [address] | | | | | | | Phone: | | | | | | | [phone] | | | | | | | Fax: | | | | | | | [phone] | +--------+--------+ + + + + Encounter [...] | | | | | | [address] | | | | | | [place], | | | | | | [place] [address] | | | | | | [phone] | | | +--------+ + + + [...] MM URD (DPB1 permissive antigen mismatch, male, 9493-9986-2) Narrative: pt ambulated to infusion room with [...] | | | | | | [place], [place] | | | | | | [address] | | | | | | [phone] | | | | | | | [...] the | | | | PDT | ([facility])- primary | results section. | | | | | induction failure | | | | | | Immunocompromised | | | | | | state associated | | | | | | with stem cell | | | | | | transplant ([facility]) | | | | | | CMV (cytomegalovirus | | | | | | infection) status | | | | | | unknown ([facility]) | | + +--------+ + [...] M4 | | | | | | ([facility])- primary | | | | [...] M4 | | | | | | ([facility])- primary | | | | | | induction failure | | + +--------+ + + + | TACROLIMUS, WHOLE | Routin | 12/07/2015 | S/P allogeneic | Results for this | | BLOOD | e | 11:41 AM | bone marrow | procedure are in the | | | | PDT | transplant ([facility]) | results section. | | | | | Acute myeloid | | | | | | leukemia (AML), M4 | | | | | | ([facility])- primary | | | | | | induction failure | | + +--------+ + + + | TREATMENT PARAMETERS | Routin | 12/07/2015 | Acute myeloid | | | #2 - BEACON | e | 11:40 AM | leukemia (AML), M4 | | | | | PDT | ([facility])- primary | | | | | | induction failure | | + +--------+ + + + | TREATMENT PARAMETERS | Routin | 12/07/2015 | Acute myeloid | | | #2 - BEACON | e | 11:40 AM | leukemia (AML), M4 | | | | | PDT | ([facility])- primary | | | | | | induction failure | | + +--------+ + + + | TREATMENT PARAMETERS | Routin | 12/07/2015 | Acute myeloid | | | #2 - BEACON | e | 11:40 AM | leukemia (AML), M4 | | | | | PDT | ([facility])- primary | | | | | | induction failure | | + +--------+ + + + | TREATMENT PARAMETERS | Routin | 12/07/2015 | Acute myeloid | | | #2 - BEACON | e | 11:40 AM | leukemia (AML), M4 | | | | | PDT | ([facility])- primary | | | | | | induction failure | | + +--------+ + + + | TREATMENT PARAMETERS | Routin | 12/07/2015 | Acute myeloid | | | #2 - BEACON | e | 11:40 AM | leukemia (AML), M4 | | | | | PDT | ([facility])- primary | | | | [...] | | | | | PDT | ([facility])- primary | | | | [...] | | | characteristics determined by the [facility] | | | [facility]. It has not been cleared or approved by | | | the Food and Drug Administration. FDA approval is not required for | | | clinical use of this test, and therefore validation was done as | | | required under the requirements of the Clinical Laboratory Improvement | | | Act of 1988. The [facility] | | | [facility] is a fully licensed and/or accredited clinical | | | laboratory under CLIA, [facility], and the [facility]. | | + + + + + + + + | Performing | Address | City/State/Zipcode | Phone Number | | Organization | | | | + + + + + | [facility] | [address] | [place] [address] | | | DIAGNOSTIC | [address] [...] [facility] | [address] | [place], [place] | | | HILL, POINT OF CARE | [address] | [address] | | | TESTS | | | [...] + + + | [facility] | [address] | [place], [place] | | | [facility] | [address] | [address] | | | TESTS | | | [...] LABORATORY | [address] | [place] [address] | | | SERVICES, CORE | WALLY [...] + + + + + | [facility] | [address] | [place] [address] | | | SERVICES, SPECIAL | WALLY [...]
--- OUTSIDE RECORDS SUMMARY | ~2019-05-17 | XMS | Encounter Summary ---
Demographics + + + | Address | [address] | | | [place] [address] | + + + | Home Phone [...] Team Providers + +------+ + | Care Agricultural Engineering Technicians Name | Role | Phone | + [...] [address] | | | | | | [place], [place] | | | | | | [address] | | | | | | [phone] | | | +--------+ + + + [...] Rd | | | | | | [place], [place] | | | | | | [address] | | | | | | [phone] | | | | | | | | +--------+---------+ + + + documented as of this encounter Visit Diagnoses Not on filedocumented in this encounter"
--- OUTSIDE RECORDS SUMMARY | ~2019-05-17 | XMS | Encounter Summary ---
Demographics + + + | Address | [address] | | | [place] [address] | + + + | Home Phone [...] Team Providers + +------+ + | Care Corrective Therapist Name | Role | Phone | [...] Interventional | | | | | | [place] [facility] | | | | | | [address] | | | | | | [place], | | | | | | [place] [address] | | | | | | [phone] | | | +--------+ + + + [...] Rd | | | | | | [place], [place] | | | | | | [address] | | | | | | [phone] | | | | | | | [...] Primary | | | | | | teradata developer: Jerad | | | | | | August Caballero Attending | | | | | | teradata developer: | | | | | | Joyce [...] 12 | | | | | | Marshallese triple | | | | | | [...] | | | | | | 14 Marshallese peel away | | | | | [...] | | | | | The 12 Marshallese | | | | | | triplelumen [...] | | | | vein. A 12 Marshallese triple | | | | | | [...] | | | | | | 12 Marshallese triple lumen | | | | | [...] | | + +---------+ + + | [facility] DEPARTMENT OF | | | | | RADIOLOGY | | | | + +---------+ + + documented in this encounter Visit Diagnoses Not on filedocumented in this encounter"
--- OUTSIDE RECORDS SUMMARY | ~2019-05-17 | XMS | Encounter Summary ---
[...] Providers + +------+ + | Care Automotive Center Manager Name | Role | Phone [...] | | | | | Encounter | [place], [place] | [address] | | | | | for | [address] | Hospital | | | | | long-term | Phone: | [place], [place] | | | | | current use | [phone] | [address] | | | | | of | Fax: | Phone: | | | | | medication | [phone] | [phone] | | | | | Procedures | | Fax: | | | | | CT | | [phone] | | | | | MAX'FACIAL | | | | | | | [facility] CONTRAST | | | | | | | [place] [address] | | | | | | [...] | 2015 | Encounter | Services at [facility] | | | | | | [address] | | | | | | [place] Mailcode: | | | | | | [address] [facility] | | | | | | [place], [place] | | | | | | [address] | | | | | | [phone] | | | +--------+ + + + [...] Rd | | | | | | [place], [place] | | | | | | [address] | | | | | | [phone] | | | | | | | | +--------+---------+ + + + documented as of this encounter Procedures + +--------+ + + + | Procedure Name | Priori | Date/Time | Associated Diagnosis | Comments | | | ty | | | | + +--------+ + + + | PROCEDURE NOTE | Routin | 08/20/2015 | | Results for this | | | e | 1:49 PM | | procedure are in the | | | | PST | | results section. | + +--------+ + + + documented in this encounter Results PROCEDURE NOTE (08/20/2015 1:49 PM PST)documented in this encounter Visit Diagnoses + + | Diagnosis | + + | AML (acute myeloid leukemia) (HCC) Acute myeloid leukemia, without mention of having | | achieved remission | + + | Encounter for long-term current use of medication | + + documented in this encounter"
--- OUTSIDE RECORDS SUMMARY | ~2019-05-17 | XMS | Encounter Summary ---
Demographics + + + | Address | [address] | | | [place] [address] | + + + | Home Phone [...] Providers + +------+ + | Care Music Promoter Name | Role | Phone | + +------+ + | Zayda Hinton | PCP | | + +------+ + Encounter Details +--------+ + + + + | Date | Type | Department | Care Team | Description | +--------+ + + + + | 11/02/ | Pharmacy | Specialty Pharmacy | | | | 2016 | Visit | Services [address] | | | | | | [address] | | | | | | [place], [place] | | | | | | [address] | | | | | | [phone] | | | +--------+ + + + [...] 2019 | Visit | Malignancy | [address] [facility] | | | | | | [address] | | | | | | [place], [place] | | | | | | [address] | | | | | | [phone] | | | | | | | | +--------+---------+ + + + documented as of this encounter Visit Diagnoses Not on filedocumented in this encounter"
--- OUTSIDE RECORDS SUMMARY | ~2019-05-17 | XMS | Encounter Summary ---
Demographics + + + | Address | [address] | | | [place] [address] | + + + | Home Phone [...] Team Providers + +------+ + | Care Carpenter Mine Name | Role | Phone | + [...] Description | +--------+---------+ + + + | 12/19/ | Surgery | 6A Intra Op [facility] | Lobo Jeffers, | RIGHT TOTAL HIP | | 2019 | | [facility] | MD [address] | ARTHROPLASTY | | | | Admitting Desk | [address] | | | | | Located on the 9 | [place], [place] | | | | | floor [address] | [address] | | | | | [facility] Tao | [phone] | | | | | [place], [place] | | | | | | [address] | | | +--------+---------+ + + + [...] might be different f rom the original. [facility] DISCHARGE SUMMARY & INTERDISCIPLINARY INSTRUCTIONS Patient: Khurram Kelly CSN: [id number] Admission Date: 12/19/2018 Discharge Date: 12/20/2018 Attending Physician: Lobo Jeffers MD PCP: JULIANA Nova Service: [facility] Orthopaedics & Rehabilitation Diagnoses Principal Final Diagnosis: [...] they suspect your wound is infected. Call [facility] Orthopedics first at [phone]. Activity Weight bear as tolerated on both lower extremities. Restrictions: Posterior hip precautions on operative side (no hip flexion >90 degrees, no c rossing your legs, no turning your foot towards the middle of the body (internal rotation). Condition on Discharge Stable Follow-Up Appointments ORTHOPEDICS OUTPATIENT CLINIC: Future Appointments Provider Department Dept Phone Center 12/30/2018 9:35 AM Janette Das Orthopaedics at [facility] [phone] Orthopedics Follow up in 2 weeks (or as previously scheduled). Call [phone] to confirm or schedule this appointment. PCP: [...] Combine with 5 mg tabs Indications: GvHD [facility] Orthopaedic Service Pain Policy At the 6-week [...] administration instructions. - Call Orthopedic Clinic at [phone] if any persistent, localized swelling that does [...] and ask for the orthopaedic surgery resident information security manager. Additional Post-Op Instructions / What to Expect [...] feel that you will need more, call [phone] during business hours in order to get [...] has been our pleasure. Clover Baez MD [facility] Department of Orthopaedics & Rehabilitation [address] [place] [address] Mail Code: OP31 [facility] [email or web address] Pager: [phone] documented in this en counter Medications at [...] days. | | | | | | (DR/EC)Indications: | Indications: post-op | | | | | | post-op clot | clot prevention | | | | | | prevention | | | | | | + + + +---------+ + + documented as of this encounter Progress Notes Clover Baez MD - 12/20/2018 10:57 AM PDT [facility] ORTHOPEDIC ONCOLOGY [...] 12/30/2018 9:35 AM Janette Das Orthopaedics at [facility] 01/20/2019 10:20 AM [facility] Arrive at: 10th Floor Hematology/Medical Oncology 01/21/2019 9:20 AM Sabrina Baez [facility] at [facility] The actual length of your visit is determined by services such as dilation, tests and procedures. 01/21/2019 3:00 PM Aud Flex Staff Otolaryngology Audiology Services at [facility] 01/21/2019 3:00 PM AUDIO REDD 2 Otolaryngology Audiology Services at [facility] 01/21/2019 3:30 PM Janette Manning Otolaryngology Otology Services at [facility] Subjective: Interval Hx: Feels well, no complaints [...] 2018 | Visit | Malignancy | [address] [facility] | | | | | | [address] | | | | | | [place], [place] | | | | | | [address] | | | | | | [phone] | | | | | | | [...] [facility] | [address] | [place] [address] | | | SERVICES, CORE | PARK [...] | | | LABORATORY | | | TUNISIAN | | | SERVICES, | | | [...] 6 | 4 - 11 mmol/L | [facility] | | | | | | LABORATORY [...] + + + + | [facility] | [address] [facility] | [place] [address] | | | INDRA SHARIF | WALLY [...] + | Procedure Note | + + Lobo Oliver MD - 12/19/2018 11:52 AM PDT Date of Service: 12/19/2018 | | Attending Surgeon: Lobo Jeffers MD Mailer(s): Jhony | | Mirza . Jeramie Roper [...] | | polyethylene liner.Indication: Patient is a -wpxa-sog male who has a history | | [...] | | repaired with 0 Vicryl in ececlf-fl-hwkgf fashion. The external rotators were not | [...] and discharged when stable.Lobo Jeffers, | | MDJBH/MODLDD: 12/19/2018 11:05:02DT: 12/19/2018 11:52:31Job #: [id number] | |gluteal fibers were returned to their anatomic position and closed with a Strata stitch. Han de la garza subcutaneous tissue was repaired with 2-0 Vicryl, [...] |LIZZY/JOE | | | | | | /[id number] | + + CAPILLARY BLOOD GLUCOSE (NO [...] [facility] | [address] | [place], [place] | | | RUTHIE CARTER OF CARE | [address] | [address] | | | TESTS | | | [...] hip arthroplasty Surgeon: | | | Zeyad Mailer:Robert Murray Anesthesia:spinal with | | | general [...] | [facility] | [address] | [place], [place] | | | [facility] | [address] | [address] | | | TESTS | | | [...] +------+------+ +-------+ + +---+---+ | Given | 12/20/19 [...] | | | First dose on Lupe 12/19/18 at | | AM PDT | [...] PDT | | | | +-------+ +-------+---+---+ +---+---+ [...]
--- OUTSIDE RECORDS SUMMARY | ~2019-05-17 | XMS | Encounter Summary ---
Demographics + + + | Address | [address] | | | [place] [address] | + + + | Home Phone [...] Providers + +------+ + | Care Lead Based Paint Technician Name | Role | Phone | [...] | 2018 | | Hematologic | [address] [facility] | pred) | | | | Malignancies at | [address] | | | | | Christian Gunter | [place], [place] | | | | | [address] [facility] | [address] | | | | | Debi Mailcode: | [phone] | | | | | [facility] [address] | | | | | | [place], | | | | | | [place] [address] | | | | | | [phone] | | | +--------+ + + + [...] Rd | | | | | | [place] | | | | | | [address] | | | | | | [phone] | | | | | | | | +--------+---------+ + + + documented as of this encounter Visit Diagnoses Not on filedocumented in this encounter"
--- OUTSIDE RECORDS SUMMARY | ~2019-05-17 | XMS | Encounter Summary ---
Demographics + + + | Address | [address] | | | [place] [address] | + + + | Home Phone [...] Providers + +------+ + | Care Machine Operator Replanter Name | Role | Phone | + [...] Description | +--------+--------+ + + + | 02/05/ | Refill | Center for | Yari Garcia MD | Refill Request | | 2017 | | Hematologic | [address] [facility] | | | | | Malignancies at | [address] | | | | | Christian Barry | [place], [place] | | | | | [address] | [address] | | | | | De[address] Burger Mailcode: | [phone] | | | | | [facility] | | | | | | [place], | | | | | | [place] [address] | | | | | | [phone] | | | +--------+--------+ + + + [...] Rd | | | | | | [place] | | | | | | [address] | | | | | | [phone] | | | | | | | | +--------+---------+ + + + documented as of this encounter Visit Diagnoses Not on filedocumented in this encounter"
--- OUTSIDE RECORDS SUMMARY | ~2019-05-17 | XMS | Encounter Summary ---
Demographics + + + | Address | [address] | | | [place] [address] | + + + | Home Phone [...] Providers + +------+ + | Care Plumbing Inspector Name | Role | Phone | [...] | ic leukemia, | [address] | [facility] | | | | | not having | [address] | [address] | | | | | achieved | [place], [place] | Rd Mailcode: | | | | | remission | [address] | [facility] | | | | | Procedures | Phone: | [place] | | | | | [place] | [phone] | Pavilion | | | | | AZACITIDINE | Fax: | [place], [place] | | | | | INJECTION, 1 | [phone] | [address] | | | | | MG MS | | Phone: | | | | | CHM,IV | | [phone] | | | | | INFSN,1 HR | | Fax: | | | | | MS CHM,IV | | [phone] | | | | | INFSN,ADDL | [...] | | (Buzz) | | | | [address] | | | | | | [address] Mailcode: | | | | | | [facility] [place] | | | | | | [place], | | | | | | [place] [address] | | | | | | [phone] | | | +--------+ + + + [...] d to check out at the front line supervisor prior to leaving the clinic. 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), M4 | | | | | PDT | ([facility])- primary | | | | | | induction failure | | + +--------+ + + + | TREATMENT PARAMETERS | Routin | 03/24/2016 | 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), M4 | | | | | PDT | ([facility])- primary | | | | | | induction failure | | + +--------+ + + + | TREATMENT PARAMETERS | Routin | 03/24/2016 | 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), M4 | | | | | PDT | ([facility])- primary | | | | | | induction failure | | + +--------+ + + + | TREATMENT PARAMETERS | Routin | 03/24/2016 | 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), M4 | | | | | PDT | ([facility])- primary | | | | | | induction failure | | + +--------+ + + + | TREATMENT PARAMETERS | Routin | 03/24/2016 | 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), M4 | | | | | PDT | ([facility])- primary | | | | | | induction failure | | + +--------+ + + + | NURSING | Routin | 03/24/2016 | Acute myeloid | | | COMMUNICATION #3 - | e | 8:08 AM | leukemia (AML), M4 | | | BEACON | | PDT | ([facility])- primary | | | | | | induction failure | | + +--------+ + + + | NURSING | Routin | 03/24/2016 | Acute myeloid | | | COMMUNICATION #2 - | e | 8:08 AM | leukemia (AML), M4 | | | BEACON | | PDT | ([facility])- primary | | | | | | induction failure | | + +--------+ + + + | TREATMENT PARAMETERS | Routin | 03/24/2016 | Acute myeloid | | | #1 - BEACON | e | 8:08 AM | leukemia (AML), M4 | | | | | PDT | ([facility])- primary | | | | | | [...] SORTO | [address] | [place], [place] | | | [facility] | [address] | [address] | | | TESTS | | | [...] - [facility] | [address] | [place], [place] | | | [place] [facility] | [address] | [address] | | | TESTS | | | [...] LOZA | [address] | [place] [address] | | | SERVICES, CORE | WALLY [...]
--- OUTSIDE RECORDS SUMMARY | ~2019-05-17 | XMS | Encounter Summary ---
Demographics + + + | Address | [address] | | | [place] [address] | + + + | Home Phone [...] Team Providers + +------+ + | Care Hydrometer Tester Name | Role | Phone | + +------+ + | Zayda Hinton | PCP | | + +------+ + Encounter Details +--------+ + + + + | Date | Type | Department | Care Team | Description | +--------+ + + + + | 03/24/ | Pharmacy | Specialty Pharmacy | | | | 2015 | Visit | Services [address] | | | | | | [address] | | | | | | [place], [place] | | | | | | [address] | | | | | | [phone] | | | +--------+ + + + [...] [place] | | | | | | [address] | | | | | | [phone] | | | | | | | | +--------+---------+ + + + documented as of this encounter Visit Diagnoses Not on filedocumented in this encounter"
--- OUTSIDE RECORDS SUMMARY | ~2019-05-17 | XMS | Encounter Summary ---
Demographics + + + | Address | [address] | | | [place] [address] | + + + | Home Phone [...] Team Providers + +------+ + | Care Trim Line Worker Name | Role | Phone | + +------+ + | Zayda Hniton | PCP | | + +------+ + Encounter Details +--------+ + + + + | Date | Type | Department | Care Team | Description | +--------+ + + + + | 09/14/ | Pharmacy | Specialty Pharmacy | | | | 2015 | Visit | Services [address] | | | | | | [address] | | | | | | [place], [place] | | | | | | [address] | | | | | | [phone] | | | +--------+ + + + [...] Rd | | | | | | [place], [place] | | | | | | [address] | | | | | | [phone] | | | | | | | | +--------+---------+ + + + documented as of this encounter Visit Diagnoses Not on filedocumented in this encounter"
--- OUTSIDE RECORDS SUMMARY | ~2019-05-17 | XMS | Encounter Summary ---
Demographics + + + | Address | [address] | | | [place] [address] | + + + | Home Phone [...] Team Providers + +------+ + | Care Vending Machine Repairer Name | Role | Phone | + +------+ + | Zayda Hinton | PCP | | + +------+ + Encounter Details +--------+ + + + + | Date | Type | Department | Care Team | Description | +--------+ + + + + | 06/15/ | Pharmacy | Specialty Pharmacy | | | | 2015 | Visit | Services [address] | | | | | | [address] | | | | | | [place], [place] | | | | | | [address] | | | | | | [phone] | | | +--------+ + + + [...] Rd | | | | | | [place], [place] | | | | | | [address] | | | | | | [phone] | | | | | | | | +--------+---------+ + + + documented as of this encounter Visit Diagnoses Not on filedocumented in this encounter"
--- OUTSIDE RECORDS SUMMARY | ~2019-05-17 | XMS | Encounter Summary ---
Demographics + + + | Address | [address] | | | [place] [address] | + + + | Home Phone [...] Providers + +------+ + | Care Flavor Maker Name | Role | Phone | [...] 2018 | Visit | Hematologic | [address] [facility] | leukemia in | | | | Malignancies at | [facility] | remission (HCC) | | | | [facility] | [place], [place] | (Primary Dx); | | | | [address] [facility] | [address] | Immunocompromised | | | | [address] Mailcode: | [phone] | state associated | | | | [facility] [place] | | with stem cell | | | | [facility] [place], | | transplant (HCC); | | | | [place] [address] | | 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 We'll ask our insurance collector to give you a call and see if she can help with ins urance issues 4. I'll release your labs to [facility] once they're available. 5. Return to [...] Donor: MMURD (DPB1 permissive antigen mismatch, male, [id number]) Identifying Data: Khurram Kelly is a 26 [...] his L ankle. He was evaluated at [facility] on 06/[address] angiogram negative [...] myelomonocytic leukemia. He was referred to [facility] for further evaluation and man agement of his newly dx'd AML. Pt was admitted to [facility] on 05/26/15. Peripheral blood was sent for [...] CD34, variable CD56, variable CD117, and dim UO808-xqmms mickey; promonocyte immunophenotype (70% by flow): CD11b, [...] his brother's girlfriend (who is now in senior living). He continues to care for his son [...] indicated providing peripheral counts remain stable 2. 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 He initially responded but flared during taper. He also developed low-level nausea and abd discomfort concerning for GvHD, emp irically treated with oral non-absorbables with resolution. - He had tapered prednisone to 10 mg po daily when he developed a rash for which he was see n in the ED in [place] in late 01/21. Prednisone was increased back [...] year cele mason, sooner prn. Aspen Cummins, [facility] AT [address] Mailcode: [place] [address] documented in this enc ounter [...] | | | 2018 | Visit | [facility] | [address] [facility] | | | | | | [facility] | | | | | | [place], [place] | | | | | | [address] | | | | | | [phone] | | | | | | | [...] | + +-------+ + + + | TKD44-45% | 4.92 | 4.94 L/sec | [facility] | | | PRE | | | SPECIAL | | | | | | DIAGNOSTICS | | | | | | - | | | | | | PULMONARY | | | | | | FUNCTION | | + +-------+ + + + | SYQ26-88% | 99 | % | [facility] | [...] [facility] | [address] | [place], [place] | | | DIAGNOSTICS - | [address] | [address] | | | PULMONARY FUNCTION | | [...] | [facility] | | considered for monitoring fdc glycemic control in patients with: | LABORATORY [...] | + + + + + | [facility] | [address] | [place] [address] | | | SERVICES, SPECIAL | [address] [...] [place] | [address] | [place], [place] | | | RUTHIE CARTER OF KRISTA | [facility] | [address] | | | TESTS | | | [...] - [facility] | [address] | [place], [place] | | | [facility] | [address] | [address] | | | TESTS | | | [...] | + + + + + | ihiji | [address] | [place] [address] | | | SERVICES, INDRA | WALLY [...] | | | | | CD4, CD8, YX9kwix,CD19, | | | | | | CD25, [...] 55-85% | | | | | | 700-2919QD0+ CD4+ | | | | | | 18.1 | | | | | | 324.5 28-57% | | | | | | 300-6228OL4+ CD8+ | | | | | | [...] | | | | | | | %LymphsCD3+CD4+KG1exjj | | | | | | + 0.3 | | | | | | | | | | | | <1.5%CD3+HLA-DR+ | | | | | | 0.9 | | | | | | | | | | | | <10%CD4+CD25+ | | | | | | 1.4 | | | | | | | | | | | | <7%UL0hyyy+CD69+ | | | | | | 0.3 [...] | [facility] | [address] | [place] [address] | | | PATHOLOGY | [address] [...]
--- OUTSIDE RECORDS SUMMARY | ~2019-05-17 | XMS | Encounter Summary ---
Demographics + + + | Address | [address] | | | [place] [address] | + + + | Home Phone [...] Team Providers + +------+ + | Care Independent Jeweler Name | Role | Phone | + [...] Barry | | | | | | [address] | | | | | | [address] Mailcode: | | | | | | [facility] [place] | | | | | | [place], | | | | | | [place] [address] | | | | | | [phone] | | | +--------+ + + + [...] Rd | | | | | | [place], [place] | | | | | | [address] | | | | | | [phone] | | | | | | | [...] [place] | [address] | [place], [place] | | | RUTHIE CARTER OF CARE | [address] | [address] | | | TESTS | | | [...] S[place] | 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
--- OUTSIDE RECORDS SUMMARY | ~2019-05-17 | XMS | Encounter Summary ---
Demographics + + + | Address | [address] | | | [place] [address] | + + + | Home Phone [...] | + + +---------+ + | Gabriel eKlly | ECON | Unknown | | + + +---------+ + Care Team Providers + +------+ + | Care Professor Of Astronomy Name | Role | Phone | + +------+ + | Zayda Hinton | PCP | | + +------+ + Encounter Details +--------+ + + + + | Date | Type | Department | Care Team | Description | +--------+ + + + + | 11/07/ | Pharmacy | Specialty Pharmacy | | | | 2015 | Visit | Services [address] | | | | | | [address] | | | | | | [place], [place] | | | | | | [address] | | | | | | [phone] | | | +--------+ + + + [...] Rd | | | | | | [place], [place] | | | | | | [address] | | | | | | [phone] | | | | | | | | +--------+---------+ + + + documented as of this encounter Visit Diagnoses Not on filedocumented in this encounter"
--- OUTSIDE RECORDS SUMMARY | ~2019-05-17 | XMS | Encounter Summary ---
Demographics + + + | Address | [address] | | | [place] [address] | + + + | Home Phone [...] Team Providers + +------+ + | Care Forward Air Controller/Air Officer Name | Role | Phone | + +------+ + | Zayda Hinton | PCP | | + +------+ + Reason for Visit + + + | Reason | Comments | + + + | New patient | | | consultation | | + + + | Referred by doctor | | + + + Consultation (Urgent) +--------+--------+ + + + + | Status | Reason | Specialty | Diagnoses / | Referred By | Referred To | | | | | Procedures | Contact | Contact | +--------+--------+ + + + + | Closed | | Ophthalmology | Diagnoses | Jose, | Sasha, | | | | | | Yari Jones MD | Maranda Saucedo MD | | | | | Immunocompro | [address] | [address] | | | | | mised state | Je [place] | Fab | | | | | associated | Debi Burger | Kadeem | | | | | with stem | [facility], [place] | [place], [place] | | | | | cell | [address] | [phone] | | | | | transplant | Phone: | Phone: | | | | | ([facility]) S/P | [phone] | [phone] | | | | | allogeneic | Fax: | Fax: | | | | | bone marrow | [phone] | [phone] | | | | | transplant | | | | | | | ([facility]) Red | | | | | | | eye GVHD | | | | | | | (graft | | | | | | | versus host | | | | | | | disease) | | | | | | | ([facility]) | | | | | | | [...] Description | +--------+---------+ + + + | 10/21/ | Office | [facility] | Maranda Baez, | KCS | | 2019 | Visit | [facility] | [address] | (keratoconjunctiviti | | | | [place] [address] | [address] | s sicca) ([facility]) | | | | [address] | [facility] [place] | (Primary Dx); GVHD | | | | Mailcode: CEI | [phone] | (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 host | | | | [place], [place] | [phone] | disease) ([facility]); | | | | [address] | | Choroidal nevus of | | | | [phone] | | left eye | +--------+---------+ + + + Social History [...] of this encounter Patient Instructions Patient Instructions Maranda Baez MD - 10/21/2018 2:10 PM PDTStart Restasis 1 drop in each eye 4 times a day Start fluoromethalone 1 drop in each eye 4 times a day Use preservative free artificial tearsElectronically signed by Maranda Baez MD at 2018 3:37 PM PDT documented in this encounter Progress Notes Maranda Baez MD - 10/21/2018 2:10 PM PDTFormatting of this note might be different fro m the original. [facility] Progress Note 10/21/2018 Chief Complaint Patient presents with New patient consultation Referred by doctor Referred by Dr. Cummins for GVHD. Patient reports that both eyes feel terrible all of the ti me. His eye are very irritating and burning. Significant goop in the morning- "conjunctiviti s". He thinks is pulling stuff out of his eyes a lot. Vision fluctuates - sometimes better w ith glasses sometimes better without. Constant redness and photophobia. He was put on antibiotic and steroid drops through his normal adolescent coordinator (Dr. Ranjan burns) with some improvement in symptoms but once he stopped for a day the problem returned. Never tried Restasis or Xiidra. Has used doxycycline 100 mg daily - this did help - less gu nk and improvement in symptoms BMT 3 years ago. Over past 1.5 years, significant pain in both eyes. 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 On 10mg of prednison e and starting on CellCept. Meds: Using Systane in a bottle multiple times per day Pain: 4-5 Past ocular history: GVHD, Choroidal nevus OS Family ocular history: Unremarkable PCP: JULIANA Nova Referring: Aspen Cummins MERCHANDISE EXECUTION LEADER ROS: Medications, allergies, medical, surgical and family history were reviewed by me at th is visit utilizing [facility] patient history form and Epic patient history pertinent positives: Past Medical History: Diagnosis Date Gout Malignant neoplasm (HCC) Pancytopenia due to chemotherapy (HCC) 06/03/2015 Parotiditis Pericarditis Renal insufficiency 07/02/2015 Past Surgical History Procedure Laterality Date Appendectomy Closed arm reduction Left 2006 in basketball game Family History Problem Relation Cancer Maternal Grandmother Heart Disease Maternal Grandfather Cancer Paternal Grandmother Heart Disease Paternal Grandfather History Smoking Status Former Smoker Packs/day: 1.00 Years: 7.00 Quit date: 05/20/2015 Smokeless Tobacco Former User Comment: used 1 year No Known Allergies Current Outpatient Prescriptions (Other) Medication Sig acyclovir Take 1 tablet by mouth two times daily. ALPRAZolam Take 1 tablet by mouth as needed. Indications: anxiety (Patient taking diffe rently: Take 0.5 mg by mouth three times daily as needed. Indications: anxiety) ergocalciferol Take 1 capsule by mouth every seven days for 8 doses. predniSONE Take 10 mg by mouth once daily. All else unless noted was neg. (fever, wt. loss, ENT, cardiovascular, pulmonary, GI, urinar y, neurologic, endocrine, bleeding/blood disorders, AIDS/HIV, cancer/tumors, arthritis) Broadcast Transmitter Operator Attestation: FREEDOM Parisi, performed and reviewed the above history, medicat ions, allergies, as well as performed elements noted in the Base Ophthalmology Exam. Examination: Base Exam Visual Acuity (Snellen - Linear) Right Left Dist cc 20/20 -1 20/25 -1 Correction: Glasses Tonometry (Tonopen, 2:49 PM) Right Left Pressure 14 15 Wearing Rx Sphere Cylinder Delano Right -1.25 -2.25 175 Left -1.25 -3.50 003 Age: [age] yr Type: SVL Manifest Refraction Sphere Cylinder Delano Dist VA Right -1.25 -1.50 175 20/20 Left -0.50 -3.25 003 20/25 Dilation Both eyes: 1.0% Mydriacyl, 2.5% Phenylephrine @ 2:48 PM Pupils Pupils APD Right PERRL None Left PERRL None Visual Diamond Left Right Full Full Extraocular Movement Right Left Full Full Neuro/Psych Oriented x3: Yes Mood/Affect: Normal Slit Lamp and Fundus Exam External Exam Right Left External Normal Normal Slit Lamp Exam Right Left Lids/Lashes 1+ MGD, mucoid debris on lid margin 1+ MGD, mucoid debris on lid margin Conjunctiva/Sclera punctate fluroscein staining mostly inferior, nasal, temporal punctate fluroscein staining mostly inferior, nasal, temporal Cornea 4+ inferior PEE, very low tear henderson, pigment specks on endo 4+ inferior PEE, very low tear henderson, pigment specks on endo Anterior Chamber Deep and quiet, deep Deep and quiet Iris Normal Normal Lens Clear Clear Vitreous Normal Normal Fundus Exam Right Left Disc Normal Normal C/D Ratio 0.1 0.1 Macula Normal Normal Vessels Normal single small anderson spot along superior arcade Periphery Normal Attached, less than 1 DD pigmented lesion appearing consistent with nevus located along inferior arcade. No associated orange pigment or fluid. No drusen. Lacrimal Exam Schirmers Right Left 01 01 Anesthesia: Yes IMPRESSION: 1. 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 Choroidal nevus, left eye PLAN: 1. Discussed KCS in setting of GvHD and treatment options 2. Continue frequent artificial tears; recommend use of preservative-free and given list of options 3. Start Restasis qid OU 4. Start fluorometholone 0.1% qid OU; taper once evaluated in 1 month 5. Discussed options of serum tears and punctal plugs to be considered in future; could als o consider trial enrollment RTC in 1 month, sooner as needed, for re-eval of symptoms MARANDA BAEZ MD [facility] AT [address] Mailcode: [place] [address] documented in this en counter Plan of [...] [place] | | | | | | [address] | | | | | | [phone] | | | | | | | | +--------+---------+ + + + documented as of this encounter Visit Diagnoses + + | Diagnosis | + + | KCS (keratoconjunctivitis sicca) ([facility]) - Primary Sicca syndrome | + + | 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
--- OUTSIDE RECORDS SUMMARY | ~2019-05-17 | XMS | Encounter Summary ---
Demographics + + + | Address | [address] | | | [place] [address] | + + + | Home Phone [...] Team Providers + +------+ + | Care Rope Machine Setter Name | Role | Phone | [...] | | | | | | | [address] | | | | | | | [address] | | | | | | | [place], | | | | | | | [place] | | | | | | | [address] | | | | | | | Phone: | | | | | | | [phone] | | | | | | | Fax: | | | | | | | [phone] | +--------+--------+ + + + + Encounter Details +--------+---------+ + + + | Date | Type | Department | Care Team | Description | +--------+---------+ + + + | 07/22/ | Office | Center for | Yari Garcia MD | 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), M4 | | | | Malignancies at | [address] | (HCC) (Primary Dx) | | | | [address] | [place], [place] | | | | | [address] | [address] | | | | | [address] Mailcode: | [phone] | | | | | [facility] | | | | | | [place], | | | | | | [place] [address] | | | | | | [phone] | | | +--------+---------+ + + + [...] + | Blood Pressure | 119/80 | 07/22/2015 1:47 PM | | | | | PST | | + + + + + | Pulse | 112 | 07/22/2015 1:47 PM | | | | | PST | | + + + + + | Temperature | 36.9 C (98.5 F) | 07/22/2015 1:47 PM | | | | | PST | | + + + + + | Respiratory Rate | 16 | 07/22/2015 1:47 PM | | | | | PST | | + + + + + | Oxygen Saturation | 100% | 07/22/2015 1:47 PM | | | | | PST | | + + + + + | Inhaled Oxygen | - | - | | | Concentration | | | | + + + + + | Weight | 81.9 kg (180 lb 8.9 | 07/22/2015 1:47 PM | | | | oz) | PST | | + + + + + | Height | - | - | | + + + + + | Body Mass Index | 22.87 | 07/15/2015 1:57 PM | | | | | PST | | + + + + + documented in this encounter Patient Instructions Patient Instructions Christina Hernandez RN - 07/22/2015 3:[address] Garcia is going to have you do a full 10 days of chemo On Sunday we will have you see our nurse practitioner Aspen Cummins Then we will have you get labs and infusion/transfusion on Sunday the Next lab infusion/transfusion and visit with Dr. Garcia on the ----we will hope to do noah e transplant planning that day as well. Next script for Zoloft sent to the pharmacy today. Check out at the front desk manager today and make your next appointments. You can also call the s chedulers at [phone]. If you have any questions, or if you need prescription refills, or are experiencing any sym ptoms or side effects please call our concrete curer at [phone] Your physicians nurse is Christina Hernandez. You can reach her Sunday thru by page at , by phone at [phone] or via email at [email or web address] documented in this encounter Progress Notes aYri Garcia MD - 08/15/2015 10:55 AM PST [facility] 07/22/15 Diagnosis: AML - primary induction failure Reason for visit: Follow up after initiation of decitabine. Disease History: Khurram Kelly is a 24 [...] his L ankle. [facility] angiogram negative [...] acute myelomonocytic leukemia. He was referred to [facility] for further evaluation and man agement of his newly dx'd AML. Pt was admitted to [facility] on 05/26/15. Peripheral blood [...] CD34, variable CD56, variable CD117, and dim LG059-lmkvk mickey; promonocyte immunophenotype (70% by flow): CD11b, [...] Interval History: Khurram returns to clinic today feeling ok overall. No early side effects from decitabine - has been tolerating it well. No nausea or vomiting. No fevers/chills. Mood is still de pressed. No active or passive suicidal ideation, but feels that depression and anxiety are getting in the way of him experiencing any happiness. Review of Systems Constitutional: Positive for weight [...] Psychiatric/Behavioral: Positive for depression. The patient is nervous/anxious. Current Medication List Name Sig ACYCLOVIR [...] once daily. LORAZEPAM 1 MG TABLET Take 0.5-1 tablets by mouth every six hours as needed for anxiety (na usea or sleep,). ONDANSETRON HCL 4 MG TABLET Take 1 [...] diaphoretic. No erythema. No pallor. Few petechiae Psychiatric: Memory, affect and judgment normal. No visits with results within 1 Day(s) from this visit. Latest known visit with results is: Clinical Tank Car Reconditioner on 07/21/2015 Component Date Value SODIUM, POC 07/21/2015 139 POTASSIUM, POC 07/21/2015 4.6 TOTAL CO2, POC 07/21/2015 27 CHLORIDE, POC 07/21/2015 102 GLUCOSE, POC 07/21/2015 110* CALCIUM TOTAL, POC 07/21/2015 10.0 BUN, POC 07/21/2015 14 CREATININE, POC 07/21/2015 1.1 ALK PHOS, CMP POC 07/21/2015 60 ALT, CMP POC 07/21/2015 34 AST, CMP POC 07/21/2015 21 BILIRUBIN TOTAL, CMP POC 07/21/2015 0.6 ALBUMIN, CMP POC 07/21/2015 3.8 PROTEIN TOTAL, CMP POC 07/21/2015 7.0 LD TOTAL, PLASMA 07/21/2015 131 LD CMNT 07/21/2015 No Hemo ABO GROUP 07/21/2015 A RH TYPE, BLOOD 07/21/2015 Positive ANTIBODY SCREEN 07/21/2015 Negative WHITE CELL COUNT 07/21/2015 1.09* RED CELL COUNT 07/21/2015 2.86* HEMOGLOBIN 07/21/2015 8.1* HEMATOCRIT 07/21/2015 22.8* MCV 07/21/2015 79.7* MCHC 07/21/2015 35.5 RDW SD 07/21/2015 33.2* PLATELET COUNT 07/21/2015 20* MPV 07/21/2015 11.4 NRBC% 07/21/2015 0.0 NRBC# 07/21/2015 0.00 NEUTROPHIL % 07/21/2015 13.0* LYMPHOCYTE % 07/21/2015 40.3 MONOCYTE % 07/21/2015 41.5* EOSINOPHIL % 07/21/2015 0.0* BASOPHIL % 07/21/2015 0.0 IMMATURE GRANULOCYTE% 07/21/2015 5.2* NEUTROPHIL # 07/21/2015 0.14* LYMPHOCYTE # 07/21/2015 0.44* MONOCYTE # 07/21/2015 0.45 EOSINOPHIL # 07/21/2015 0.00 BASOPHIL # 07/21/2015 0.00 IMMATURE GRANULOCYTE# 07/21/2015 0.06* Assessment: 24 year old male with PIF AMML after induction chemotherapy with idarubicin an d cytarabine followed by reinduction with high dose cytarabine and methotrexate. Plan: 1. AMML - very high risk situation with PIF after 2 courses of induction with only isolate d NRAS mutation, and without known antecedent hematologic disorder. Tolerating decitabine and will plan for 10 day course. 2 antigen MM in the labs currently being reviewed as potential donor - DP typing not yet co mplete. Will also type parents in event that the URDs have multiple mismatches. Difficult situation overall, at best 20-30% long term care pharmacist survival with SCT, negligible long te rm survival without it. 2. Immunocompromised host -acyclovir for viral prophylaxis -levaquin for bacterial prophylaxis -posaconazole for fungal prophylaxis 3. Dental issues -has some dental work that needs work (crown is off), but limited ability to have dental ma nipulations given severity of pancytopenia -encouraged pt to identify local dentist in [place] for diagnostic visit - if there are si gnificant concerns, he can be transfused with platelets and will need prophylactic antibioti cs. 4. Depression, Situational, no suicidal ideation -initiated sertraline 5. Cytopenias -transfuse with leukocyte reduced irradiated blood products for platelets <10, hct <21% or symptomatic 6. Follow-up -Complete 10 day course of decitabine while working toward definitive transplant plan -daily treatment with decitabine and then 2-3x/ weekly labs with once weekly provider visit s Yari Garcia MD, MS [employer] key person [place] [facility] [address] [place] [phone] Display Progress Note in MyChart: No I [...] Rd | | | | | | [place], [place] | | | | | | [address] | | | | | | [phone] | | | | | | | | +--------+---------+ + + + documented as of this encounter Visit Diagnoses + + | Diagnosis | + + | Acute myeloid leukemia (AML), M4 (HCC) - Primary | + + documented in this encounter"
--- OUTSIDE RECORDS SUMMARY | ~2019-05-17 | XMS | Encounter Summary ---
Demographics + + + | Address | [address] | | | [place] [address] | + + + | Home Phone [...] Team Providers + +------+ + | Care Tile Edger Name | Role | Phone | + +------+ + | Zayda Hinton | PCP | | + +------+ + Encounter Details +--------+ + + + + | Date | Type | Department | Care Team | Description | +--------+ + + + + | 08/23/ | Pharmacy | Specialty Pharmacy | | | | 2016 | Visit | Services [address] | | | | | | [address] | | | | | | [place], [place] | | | | | | [address] | | | | | | [phone] | | | +--------+ + + + [...] 2019 | Visit | Malignancy | [address] | | | | | | [address] | | | | | | [place], [place] | | | | | | [address] | | | | | | [phone] | | | | | | | | +--------+---------+ + + + documented as of this encounter Visit Diagnoses Not on filedocumented in this encounter"
--- OUTSIDE RECORDS SUMMARY | ~2019-05-17 | XMS | Encounter Summary ---
Demographics + + + | Address | [address] | | | [place] [address] | + + + | Home Phone [...] Team Providers + +------+ + | Care Shoe Fitter Name | Role | Phone | + [...] | | | | | remission | [address] | [facility] | | | | | Procedures | Phone: | Rich | | | | | [place] | [phone] | Pavilion | | | | | AZACITIDINE | Fax: | [place], [place] | | | | | INJECTION, 1 | [phone] | [address] | | | | | [place] | | Phone: | | | | | CHM,IV | | [phone] | | | | | INFSN,1 HR | | Fax: | | | | | [place] CH[facility],IV | | [phone] | | | | | INFSN,ADDL | | | | | | | HR Vidaza | | | +--------+---------+ + + + + Encounter Details +--------+ + + + + | Date | Type | Department | Care Team | Description | +--------+ + + + + | 11/01/ | Clinical | Center for | | Chemotherapy | | 2016 | Support | Hematologic | | (Vidaza) | | | Staff | Malignancies at [facility] | | | | | | [address] | | | | | | [address] Mailcode: | | | | | | [facility] | | | | | | [place], | | | | | | [place] [address] | | | | | | [phone] | | | +--------+ + + + [...] + + + | Blood Pressure | 124/69 | 11/02/2015 3:59 PM | | | | | PDT | | + + + + + | Pulse | 88 | 11/02/2015 3:59 PM | | | | | PDT | | + + + + + | Temperature | 37.1 C (98.8 F) | 11/02/2015 4:11 PM | | | | | PDT | | + + + + + | Respiratory Rate | 16 | 11/02/2015 3:59 PM | | | | | PDT | | + + + + + | Oxygen Saturation | 97% | 11/02/2015 3:59 PM | | | | | PDT | | + + + + + | Inhaled Oxygen | - | - | | | Concentration | | | | + + + + + | Weight | 83.7 kg (184 lb 8.4 | 11/02/2015 3:59 PM | | | | oz) | PDT | | + + + + + | Height | - | - | | + + + + + | Body Mass Index | 23.85 | 08/18/2015 4:35 PM | | | | | PST | | + + + + + documented in this encounter Progress Honey Murray Lili, RN - 11/02/2015 8:53 PM PDT Chemotherapy Nurse Note Name: Khurram Navaleland Date: 11/01/2015 Physician:Lubna Allergies: Khurram is allergic to chlorhexidine towelette. Assessment Pain: Denies Fever or chills: Denies Fatigue or sleep disturbance: Denies Dizziness: Denies Neuropathy: Denies Mucositis: Denies Dyspnea, cough: Denies Signs of bleeding: Denies Nausea, vomiting or loss of appetite: Reports good appetite. Fluid intake: Reports drinking at least 2 liters of fluid daily. Diarrhea or constipation: Denies Edema: Denies Rash: Denies Labs: Lab Results Component Value Date WBC 9.2 11/01/2015 HB 11.8* 11/01/2015 HCT 35.0* 11/01/2015 PLT 87* 11/01/2015 BUN 17 11/01/2015 CR 0.6* 11/01/2015 For Treatment Done in Clinic Today: see MAR Narrative: Khurram is a [address] 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 He arrives to clinic ambulatory with his for Cycle 1 Day 2 of Vidaza. No labs ordered for today per chemotherapy plan. Patient was premedicated with Zofran 8 mg. Chemotherapy was checked by 2 RNs. Vidaza was infused per chemotherapy protocol and comple edward without adverse event. Positive blood return noted pre and post infusion. For infusion details, see MAR. All lumens pulse flushed with 5 mL of 10 units/mL heparin. Patient will RTC tomorrow. Patient discharged ambulatory with his without further ques tions or concerns. Sapna Murray RN documented in this encounter [...] [address] | | | | | | [place], [place] | | | | | | [address] | | | | | | [phone] | | | | | | | [...] 65 mg in | New Bag | 11/02/19 | 65 mg | 213 | Central | | NaCl 0.9 % IV 65 mg (rounded | | 16 4:55 | | mL/hr | Line | | from 64.64 mg = 32 mg/m2 | | PM PDT | | | | | 2.02 m2 Treatment plan recorded | | | | | | | BSA), intravenous, Administer | | | | | | | over 30 Minutes, ONCE, 1 dose, | | | | | | | 11/02/15 at 1615, HIGH RISK | | | | | | | MEDICATION-CHEMOTHERAPY | | | | | | | Administration must be completed | | | | | | | within 1 hour of preparation., | | | | | | + +---------+ +-------+-------+ + +---+---+ | | | +---+---+ + +-------+ +------+---+---+ | ondansetron (ZOFRAN) tablet 8 | Given | 11/02/19 | 8 mg | | | | mg 8 mg, oral, ONCE, 1 dose, Tue | | 16 4:18 | | | | | 11/02/15 at 1615 | | PM PDT | | | | + +-------+ +------+---+---+ +---+---+ | | | +---+---+ documented in this encounter"
--- OUTSIDE RECORDS SUMMARY | ~2019-05-17 | XMS | Encounter Summary ---
Demographics + + + | Address | [address] | | | [place] [address] | + + + | Home Phone [...] Providers + +------+ + | Care Manager Mission Name | Role | Phone | + [...] | | | | | | [place], | | | | | | | [place] | | | | | | | [address] | | | | | | | Phone: | | | | | | | [phone] | | | | | | | Fax: | | | | | | | [phone] | +--------+--------+ + + + + Encounter Details +--------+ + + + + | Date | Type | Department | Care Team | Description | +--------+ + + + + | 02/27/ | Clinical | Center for | | Lab Draw | | 2016 | Support | Hematologic | | | | | Staff | Malignancies at [facility] | | | | | | [address] | | | | | | Debi Burger Mailcode: | | | | | | [facility] | | | | | | [place], | | | | | | [place] [address] | | | | | | [phone] | | | +--------+ + + + [...] 2019 | Visit | Malignancy | [address] | | | | | | [address] | | | | | | [place], [place] | | | | | | [address] | | | | | | [phone] | | | | | | | [...] SORTO | [address] | [place], [place] | | | [address] | [address] | [address] | | | TESTS | | | [...] MACARIO | [address] | [place], [place] | | | [address] | [address] | [address] | | | TESTS | | | [...] + + + + + | [facility] | [address] | [place] [address] | | | SERVICES, CORE | PARK [...] determined by the [facility] | | | Molecular Diagnostic [facility]. It [...] of 1988. The [facility] Molecular | | | Diagnostic Center is a fully licensed and/or accredited clinical | | | laboratory under CLIA, CAP, and the [facility]. | | + + + + + + + + | Performing | Address | City/State/Zipcode | Phone Number | | Organization | | | | + + + + + | [facility] | [address] | [place] [address] | | | DIAGNOSTIC | [address] [...]
--- OUTSIDE RECORDS SUMMARY | ~2019-05-17 | XMS | Encounter Summary ---
Demographics + + + | Address | [address] | | | [place] [address] | + + + | Home Phone [...] Providers + +------+ + | Care Barrel Ribs Solderer Name | Role | Phone | + [...] marrow transplant | | | | at [facility] 3rd Floor | | ([facility]LY [facility]) | | | | [address] | | | | | | [place], | | | | | | [place] [address] | | | | | | [phone] | | | +--------+------+ + + + [...] Rd | | | | | | [place], [place] | | | | | | [address] | | | | | | [phone] | | | | | | | [...] (NA,K,CL,CO2,BUN,CRE | | PDT | transplant ([facility]) | results section. | | AT,GLUC,CA,AST,ALT,B | [...] reference ranges effective May 24, 2016. | [facility] | | Immature Granulocytes (IG) include metamyelocytes, [...] | + + + + + | [facility] | [address] | [place] [address] | | | SERVICES, CORE | WALLY [...] [facility] | [address] | [place] [address] | | | SERVICES, CORE | PARK [...] [facility] | [address] | [place] [address] | | | SERVICES, CORE | PARK [...] [facility] | [address] | [place] [address] | | | SERVICES, CORE | PARK [...] | + + + + + | [facility] | [address] | [place] [address] | | | SERVICES, CORE | WALLY [...] | + + + + + | [facility] | [address] | [place] [address] | | | SERVICES, CORE | PARK [...] | | | LABORATORY | | | LIBERIAN | | | SERVICES, | | | [...] | + + + + + | [facility] | [address] | [place] [address] | | | INDRA SHARIF | [address] | | | + + + + + documented in this encounter Visit Diagnoses + + | Diagnosis | + + | 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
--- OUTSIDE RECORDS SUMMARY | ~2019-05-17 | XMS | Encounter Summary ---
Demographics + + + | Address | [address] | | | [place] [address] | + + + | Home Phone [...] Team Providers + +------+ + | Care Bath Design Sales Consultant Name | Role | Phone [...] | | | mised state | [address] | Fab | | | | | associated | [place] | [address] | | | | | with stem | [place] | | | | | cell | [address] | [address] | | | | | transplant | Phone: | Phone: | | | | | ([facility]) S/P | [phone] | [phone] | | | | | allogeneic | Fax: | Fax: | | | | | bone marrow | [phone] | [phone] | | | | | transplant | | | | | | | ([facility]) Red | | | | | | [...] + + | 11/18/ | Office | [facility] | Maranda Baez, | KCS | | 2019 | Visit | [facility] at | [address] | (keratoconjunctiviti | | | | [address] | s sicca) ([facility]) | | | | [address] | [place], [place] | (Primary Dx); GVHD | | | | Mailcode: [facility] | [address] | (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 host | | | | [facility] [place] | [phone] | disease) ([facility]) | | | | [address] | | | | | | [phone] | | | +--------+---------+ + + + [...] documented as of this encounter Progress Notes Maranda Baez MD - 11/18/2018 1:00 PM PDTFormatting of this note might be different fro m the original. [facility] Progress Note 11/18/2018 Khurram Kelly is a 28 y.o. male who returns for follow up Chief Complaint Patient presents with Follow-up visit RTC for 1 month f/u for KCS in setting of GvHD Pt reports no major improvement or changes Pt c/o having the same symptoms-dry, irritated OU. C/o burning sensation, light sensitive, and eye are very uncomfortable in the mornings Gtts using: fluorometholone qid OU Systane prn Pt reports he has been unable to obtain Restasis due to insurance not approving Might be available now since he received a phone call today Pain: 0 ROS: Medications, allergies, medical, surgical and family [...] Paternal Grandmother Heart Disease Paternal Grandfather Social History Tobacco Use Smoking Status Former Smoker Packs/day: 1.00 Years: 7.00 Pack years: 7.00 Last attempt to quit: 05/20/2015 Years since quittin.5 Smokeless Tobacco Former User Tobacco Comment used 1 year No Known Allergies Current Outpatient Medications (Ophthalmic Medications) Medication Sig fluorometholone Place in both eyes four times daily. Current Outpatient Medications (Other) Medication Sig acyclovir Take 1 tablet by mouth two times daily. ALPRAZolam Take 1 tablet by mouth three times daily as needed. Indications: anxious ergocalciferol Take 1 capsule by mouth every seven days for 8 doses. predniSONE Take 9 mg by mouth once daily. Combine with 5 mg tabs Indications: GvHD predniSONE Take by mouth. Take 9 mg by mouth once daily. All else unless noted was neg. (fever, wt. loss, ENT, cardiovascular, pulmonary, GI, urinar y, neurologic, endocrine, bleeding/blood disorders, AIDS/HIV, cancer/tumors, arthritis) Housekeeping/Laundry Supervisor Attestation: Pati Parisi, performed and reviewed the above history, medica tions, allergies, as well as performed elements noted in the Base Ophthalmology Exam. Examination: Base Exam Visual Acuity (Snellen - Linear) Right Left Dist cc 20/40 20/25 -1 Dist ph cc 20/20 20/20 Correction: Glasses Tonometry (Tonopen, 1:12 PM) Right Left Pressure 10 14 Neuro/Psych Oriented x3: Yes Mood/Affect: Normal Slit Lamp and Fundus Exam External Exam Right Left External Normal Normal Slit Lamp Exam Right Left Lids/Lashes 2+ MGD 1+ MGD Conjunctiva/Sclera punctate fluroscein staining mostly inferior, nasal, temporal punctate fluroscein staining mostly inferior, nasal, temporal Cornea 4+ inferior PEE, mostly inferiorly, very low tear henderson, pigment specks on endo 4+ inferior PEE, very low tear [place]nderson, few filaments, pigment specks on endo Anterior Chamber Deep and quiet Deep and quiet Iris Normal Normal Lens Clear Clear Vitreous Normal Normal IMPRESSION: 1. 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 Choroidal nevus, left eye PLAN: 1. Discussed punctal plugs - minimal tear henderson but may have some benefit including from pro longing lubrication drops - Placed in lower lid puncta OU after risks, benefits, alternatives, and indications review ed and all questions answered 2. Continue frequent artificial tears; recommend use of preservative-free and given list of options 3. Start Restasis qid OU (pt requesting prior authorization form from pharmacy today) 4. Continue fluorometholone 0.1% qid OU while initiating Restasis 5. Lower punctal plugs placed OU 6. Discussed options of serum tears and scleral lenses to be considered in future; could al so consider trial enrollment RTC in 2 months, sooner as needed, for re-eval of symptoms MARANDA BAEZ MD [facility] AT [address] Mailcode: [place] [id number] signed by Maranda Baez MD at 11/20/2018 8:20 PM PDTdocumente d in this encounter Plan of Treatment [...] 2018 | Visit | Malignancy | [address] [facility] | | | | | | [address] | | | | | | [place], [place] | | | | | | [address] | | | | | | [phone] | | | | | | | | +--------+---------+ + + + documented as of this encounter Procedures + +--------+ + + + | Procedure Name | Priori | Date/Time | Associated Diagnosis | Comments | | | ty | | | | + +--------+ + + + | PUNCTAL OCCLUSION BY | Routin | 11/18/2018 | KCS | Results for this | | PLUG LOWER - OS - | e | 1:33 PM | (keratoconjunctiviti | procedure are in the | | LEFT EYE | | PDT | s sicca) ([facility]) | results section. | + +--------+ + + + | PUNCTAL OCCLUSION BY | Routin | 11/18/2018 | KCS | Results for this | | PLUG LOWER- OD - | e | 1:33 PM | (keratoconjunctiviti | procedure are in the | | RIGHT EYE | | PDT | s sicca) ([facility]) | results section. | + +--------+ + + + documented in this encounter Results PUNCTAL OCCLUSION BY PLUG LOWER - OS - LEFT EYE (11/18/2018 1:33 PM PDT) + + + | Narrative | Performed At | + + + | Pre-Procedure | | | Procedures, alternatives and risks discussed with patient. Questions | | | answered., confirmed correct patient, procedure, site and consent. | | | | | | | | | Anesthesia | | | Anesthesia: topical | | | Anesthetic Medication: Proparacaine 0.5% | | | | | | | | | Procedure | | | Laterality: left lower lid | | | Type: silicone | | | Plug size: 0.5 mm | | | Lot number: [id number] | | | Estimated blood loss: none | | | | | | | | | Post Op | | | Patient tolerated the procedure well. | | | Complications: none | | | | | | Patient reported pain is 0 on a 0-10 scale. | | | | | | | | | Notes | | | Small punctum | | + + + PUNCTAL OCCLUSION BY PLUG LOWER- OD - RIGHT EYE (11/18/2018 1:33 PM PDT) + + + | Narrative | Performed At | + + + | Pre-Procedure | | | Procedures, alternatives and risks discussed with patient. Questions | | | answered., confirmed correct patient, procedure, site and consent. | | | | | | | | | Anesthesia | | | Anesthesia: topical | | | Anesthetic Medication: Proparacaine 0.5% | | | | | | | | | Procedure | | | Laterality: right lower lid | | | Plug size: 0.4 mm | | | Lot number: [id number] | | | Estimated blood loss: none | | | | | | | | | Post Op | | | Patient tolerated the procedure well. | | | Complications: none | | | | | | Patient reported pain is 0 on a 0-10 scale. | | | | | | | | | Notes | | | Small punctum | | + + + documented in this encounter Visit Diagnoses + + | Diagnosis | + + | KCS (keratoconjunctivitis sicca) ([facility]) - Primary Sicca syndrome | + + | GVHD (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 host disease) ([facility]) Complications of transplanted organ, | | unspecified site | + + documented in this encounter"
--- OUTSIDE RECORDS SUMMARY | ~2019-05-17 | XMS | Encounter Summary ---
Demographics + + + | Address | [address] | | | [place] [address] | + + + | Home Phone [...] Team Providers + +------+ + | Care Crab Steamer Name | Role | Phone | + +------+ + | Zayda Hinton | PCP | | + +------+ + Encounter Details +--------+ + + + + | Date | Type | Department | Care Team | Description | +--------+ + + + + | 04/06/ | Telephone | Center for | Yari Garcia MD | | | 2017 | | Hematologic | [address] | | | | | Malignancies at | [address] | | | | | [facility] | [place], [place] | | | | | [address] | [address] | | | | | [address] Mailcode: | [phone] | | | | | [facility] | | | | | | [place], | | | | | | [place] [address] | | | | | | [phone] | | | +--------+ + + + [...] Rd | | | | | | [place], [place] | | | | | | [address] | | | | | | [phone] | | | | | | | | +--------+---------+ + + + documented as of this encounter Visit Diagnoses Not on filedocumented in this encounter"
--- OUTSIDE RECORDS SUMMARY | ~2019-05-17 | XMS | Encounter Summary ---
Demographics + + + | Address | [address] | | | [place] [address] | + + + | Home Phone [...] Team Providers + +------+ + | Care Sketch Artist Name | Role | Phone | [...] | | | | | achieved | [place], [place] | [id number] | | | | | remission | [address] | [facility] | | | | | | Phone: | [place]a | | | | | Procedures | [phone] | [place], [place] | | | | | Post BMT | Fax: | [address] | | | | | Auth to | [phone] | Phone: | | | | | included | | [phone] | | | | | facility, | | Fax: | | | | | diagnostics, | | [phone] | | | | | office | [...] | remission (HCC) | | | | [facility] | [place], [place] | (Primary Dx); S/P | | | | [address] | [address] | allogeneic bone | | | | [address]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 | | | | [facility] | | (HCC); [facility] | | | | [place], | | 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) | | | | [phone] | | | +--------+---------+ + + + [...] 10 CREATININE, POC 03/15/2017 0.8 ALK PHOS, [facility] POC 03/15/2017 84 ALT, CMP POC 03/15/2017 55 AST, CMP POC 03/15/2017 42* BILIRUBIN TOTAL, [facility] POC 03/15/2017 0.4 ALBUMIN, [facility] POC 03/15/2017 3.8 PROTEIN TOTAL, [facility] POC 03/15/2017 7.2 documented in this encounter Progress Notes Yari Garcia MD - 03/15/2017 9:25 AM PDT 03/15/17 567 days post transplant [facility] Primary CH[facility] MD: Yari Garcia MD Primary Oncologist: Yari Garcia MD Diagnosis: AMML, primary refractory Transplant Date: 08/27/15 Donor: MMURD (DPB1 permissive antigen mismatch, male, [id number]) Identifying Data: Khurram Gambleliat is a 26 [...] his L ankle. He was evaluated at [facility] ED on 06/[address] angiogram negative [...] acute myelomonocytic leukemia. He was referred to [facility] for further evaluation and man agement of his newly dx'd AML. Pt was admitted to [facility] on 05/26/15. Peripheral blood was [...] CD34, variable CD56, variable CD117, and dim [id number] mickey; promonocyte immunophenotype (70% by flow): CD11b, [...] famil y/has young baby. 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 Very stressful [...] indicated providing peripheral counts remain stable 2. Brtyo-ok-Yvzk Disease: - Hx early aGvHD [09/06/15] requiring prednisone 1 mg/kg. He initially responded but flared during taper. He also developed low-level nausea and abd discomfort concerning for GvHD, emp irically treated with oral non-absorbables with resolution. - He had tapered prednisone to 10 mg po daily when he developed a rash for which he was see n in the ED in [place] in late 01/21. Prednisone was increased back [...] candidiasis His most recent immune reconstitution panel [facility] 08/31/16 showed normal total T [...] off analgesics. Most recently evaluated by Dr. Jeffesr on 10/18/16, feels he's doing very well post-surgery. --> Xray ordered today --> Dr. Jeffers's clinic contacted and will contact pt directly re next steps/f/u --> oxycodone prescription given in clinic 6. Psychosocial: Hx anxiety, well controlled with current xanax dosing. 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 7. Follow up --> F/u at [facility] in 4 weeks, sooner if interval complications. Yari Garcia MD, MS Scientific Database Curatorskein drier [facility] [address] [place] [address] documented in this enc ounter Plan of [...] [place] | | | | | | [address] | | | | | | [phone] | | | | | | | [...]
--- OUTSIDE RECORDS SUMMARY | ~2019-05-17 | XMS | Encounter Summary ---
Demographics + + + | Address | [address] | | | [place] [address] | + + + | Home Phone [...] Team Providers + +------+ + | Care Can Tender Name | Role | Phone | [...] | | | | | remission | [address] | [place] | | | | | | Phone: | [facility] | | | | | Procedures | [phone] | [place], [place] | | | | | Post BMT | Fax: | [address] | | | | | Auth to | [phone] | Phone: | | | | | included | | [phone] | | | | | facility, | | Fax: | | | | | diagnostics, | | [phone] | | | | | office | [...] | | | | | | [facility] [place] | | | | | | [place], | | | | | | [place] [address] | | | | | | [phone] | | | +--------+ + + + [...] [place] | | | | | | [address] | | | | | | [phone] | | | | | | | [...] | | | PDT | ([facility])- primary | results section. | | | | | induction failure | | + +--------+ + + + | CBC+DIFF,POC | Routin | 10/28/2015 | Acute myeloid | Results for this | | | e | 11:49 AM | leukemia (AML), M4 | procedure are in the | | | | PDT | ([facility])- primary | results section. | | | | | induction failure | | + +--------+ + + + | TACROLIMUS, WHOLE | Routin | 10/28/2015 | Acute myeloid | Results for this | | BLOOD | e | 11:36 AM | leukemia (AML), M4 | procedure are in the | | | | PDT | ([facility])- primary | results section. | [...] [facility] | [address] | [place], [place] | | | RUTHIE CARTER OF CARE | [address] | [address] | | | TESTS | | | [...] - [facility] | [address] | [place], [place] | | | [facility] POINT OF CARE | [facility] | [address] | | | TESTS | | | [...] [facility] | [address] | [place] [address] | | | SERVICES, SPECIAL | PARK [...] [facility] | [address] | [place] [address] | | | SERVICES, INDRA | [address] | | | + + + + + documented in this encounter Visit Diagnoses + + | Diagnosis | + + | Acute myeloid leukemia (AML), M4 (HCC)- primary induction failure - Primary | + + documented in this encounter"
--- OUTSIDE RECORDS SUMMARY | ~2019-05-17 | XMS | Encounter Summary ---
Demographics + + + | Address | [address] | | | [place] [address] | + + + | Home Phone [...] Team Providers + +------+ + | Care Outside Food Server Name | Role | Phone | + +------+ + | Pending Pcp Addition | PCP | Unavailable | + +------+ + Encounter Details +--------+ + + + + | Date | Type | Department | Care Team | Description | +--------+ + + + + | 10/12/ | Document-Sc | Health Information | Unknown . | | | 2015 | anned | Services [id number] | | | | | [address] | | | | | | Mailcode: [id number] | | | | | | [facility] | | | | | | [place], [place] | | | | | | [address] | | | | | | [phone] | | | +--------+ + + + [...] Rd | | | | | | [place], [place] | | | | | | [address] | | | | | | [phone] | | | | | | | [...]
--- OUTSIDE RECORDS SUMMARY | ~2019-05-17 | XMS | Encounter Summary ---
Demographics + + + | Address | [address] | | | [place] [address] | + + + | Home Phone [...] Team Providers + +------+ + | Care Office Communication Professor Name | Role | Phone | + +------+ + | Zayda Hinton | PCP | | + +------+ + Encounter Details +--------+ + + + + | Date | Type | Department | Care Team | Description | +--------+ + + + + | 08/05/ | Pharmacy | Specialty Pharmacy | | | | 2015 | Visit | Services [address] | | | | | | [address] | | | | | | [place], [place] | | | | | | [address] | | | | | | [phone] | | | +--------+ + + + [...] [place] | | | | | | [address] | | | | | | [phone] | | | | | | | | +--------+---------+ + + + documented as of this encounter Visit Diagnoses Not on filedocumented in this encounter"
--- OUTSIDE RECORDS SUMMARY | ~2019-05-17 | XMS | Encounter Summary ---
Demographics + + + | Address | [address] | | | [place] [address] | + + + | Home Phone [...] Providers + +------+ + | Care Assistant Inventory Manager Name | Role | Phone | [...] [address] | | | | | | [place], [place] | | | | | | [address] | | | | | | [phone] | | | +--------+ + + + [...] Rd | | | | | | [place], [place] | | | | | | [address] | | | | | | [phone] | | | | | | | | +--------+---------+ + + + documented as of this encounter Visit Diagnoses Not on filedocumented in this encounter"
--- OUTSIDE RECORDS SUMMARY | ~2019-05-17 | XMS | Encounter Summary ---
Demographics + + + | Address | [address] | | | [place] [address] | + + + | Home Phone [...] Team Providers + +------+ + | Care Pulmonologist/Intensivist Name | Role | Phone | + +------+ + | Zayda Hinton | PCP | | + +------+ + Encounter Details +--------+ + + + + | Date | Type | Department | Care Team | Description | +--------+ + + + + | 07/13/ | Pharmacy | Specialty Pharmacy | | | | 2016 | Visit | Services [address] | | | | | | [address] | | | | | | [place], [place] | | | | | | [address] | | | | | | [phone] | | | +--------+ + + + [...] Rd | | | | | | [place], [place] | | | | | | [address] | | | | | | [phone] | | | | | | | | +--------+---------+ + + + documented as of this encounter Visit Diagnoses Not on filedocumented in this encounter"
--- OUTSIDE RECORDS SUMMARY | ~2019-05-17 | XMS | Encounter Summary ---
[...] Team Providers + +------+ + | Care Apprentice Carpenter Name | Role | Phone | + +------+ + | Pending Pcp Addition | PCP | Unavailable | + +------+ + Encounter Details +--------+ + + + + | Date | Type | Department | Care Team | Description | +--------+ + + + + | 04/06/ | Documentati | Center for | Work, Social | | | 2015 | on | Hematologic | | | | | | Malignancies at | | | | | | [facility] | | | | | | [address] | | | | | | [place] Mailcode: | | | | | | [facility] | | | | | | [place], | | | | | | [place] [address] | | | | | | [phone] | | | +--------+ + + + [...] Rd | | | | | | [place], [place] | | | | | | [address] | | | | | | [phone] | | | | | | | | +--------+---------+ + + + documented as of this encounter Visit Diagnoses Not on filedocumented in this encounter"
--- OUTSIDE RECORDS SUMMARY | ~2019-05-17 | XMS | Encounter Summary ---
Demographics + + + | Address | [address] | | | [place] [address] | + + + | Home Phone [...] Team Providers + +------+ + | Care Processing Associate Name | Role | Phone | [...] | | | | | achieved | [place], [place] | [id number] | | | | | remission | [address] | [facility] | | | | | | Phone: | Asha | | | | | Procedures | [phone] | [place], [place] | | | | | Post BMT | Fax: | [address] | | | | | Auth to | [phone] | Phone: | | | | | included | | [phone] | | | | | facility, | | Fax: | | | | | diagnostics, | | [phone] | | | | | office | [...] | (HCC)- primary | | | | [facility] | [place], [place] | induction failure | | | | [address] | [address] | (Primary Dx) | | | | Debi Burger Mailcode: | [phone] | | | | | [id number] | | | | | | [place], | | | | | | [place] [address] | | | | | | [phone] | | | +--------+---------+ + + + [...] you each week. Check out at the motel front desk clerk today and make your next appointments. You can also call the flaco whitehead at [phone]. If you have any questions, or if you need prescription refills, or are experiencing any sym ptoms or side effects please call our fund accountant at [phone] documented in this encounter Progress Notes Yari Garcia MD - 11/20/2015 10:54 PM PDT 10/25/2015 [facility] Physician: Yari Garcia MD Local Oncologist: Yari Garcia MD PCP: Pending Pcp ADDITION Hematologic Malignancy: Primary refractory AML Conditioning regimen: tBuCy Date of transplant: 08/27/2015 (two day 0s) Donor: MM URD (DPB1 permissive antigen mismatch, male, [id number]) Hematologic History: Khurram Kelly is a 25 [...] his L ankle. He was evaluated at [facility] ED on 06/[address] angiogram [...] CD34, variable CD56, variable CD117, and dim QY689-iovga mickey; promonocyte immunophenotype (70% by flow): CD11b, [...] are planning on moving more permanently to [place]. No fevers/chills. No significant changes in rash. [...] is n ot nervous/anxious. Medications reviewed in [facility] and are updated. Vitals: BP 119/80 | [...] Mood, memory, affect and judgment normal. Clinical Chain Carrier on 10/25/2015 Component Date Value SODIUM, POC [...] maintenance post-transplant chemotherapy with azacytidine per the [facility] colleen men 32 mg/m2 x 5 days q 28 days x 6 cycles. GVHD: Skin GvHD: patient developed rash early in transplant course during SCT admission. Derm bio psy done 08/27/15 showing subtle vacuolar interface dermatitis, the changes are consistent wi th eruption of lymphocyte recovery and early mild bsyvh-fabfid-ojqi disease. On 09/13, rash in volved ~15% [...] ly provider visits. Yari Garcia MD, MS Ball Mill Mixerflight tower dispatcher [facility] [address] [place] [address] documented in this enc ounter Plan of [...] Rd | | | | | | [place], [place] | | | | | | [address] | | | | | | [phone] | | | | | | | | +--------+---------+ + + + documented as of this encounter Visit Diagnoses + + | Diagnosis | + + | Acute myeloid leukemia (AML), M4 (HCC)- primary induction failure - Primary | + + documented in this encounter"
--- OUTSIDE RECORDS SUMMARY | ~2019-05-17 | XMS | Encounter Summary ---
Demographics + + + | Address | [address] | | | [place] [address] | + + + | Home Phone [...] | | | | | | [place] [address] | | | | | | [phone] | | | +--------+------+ + + + [...] Rd | | | | | | [place], [place] | | | | | | [address] | | | | | | [phone] | | | | | | | [...] | Test performed by immunoassay using [employer] Account[employer] Supervisor i2000. | [facility] | | Therapeutic range [...] + + + | [facility] | [address] | [place] [address] | | | SERVICES, SPECIAL | [address] | | | | IMM + COAG | | | | + + + + + documented in this encounter Visit Diagnoses + + | Diagnosis | + + | 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
--- OUTSIDE RECORDS SUMMARY | ~2019-05-17 | XMS | Encounter Summary ---
Demographics + + + | Address | [address] | | | [place] [address] | + + + | Home Phone [...] Team Providers + +------+ + | Care Associate Theatre Professor Name | Role | Phone | + +------+ + | Zayda Hinton | PCP | | + +------+ + Encounter Details +--------+ + + + + | Date | Type | Department | Care Team | Description | +--------+ + + + + | 08/29/ | Document-Sc | Health Information | Other, Faculty | | | 2015 | anned | Services [address] | [phone] | | | | | [address] | | | | | | Mailcode: [id number] | | | | | | [facility] | | | | | | [place], [place] | | | | | | [address] | | | | | | [phone] | | | +--------+ + + + [...] Rd | | | | | | [place], [place] | | | | | | [address] | | | | | | [phone] | | | | | | | | +--------+---------+ + + + documented as of this encounter Visit Diagnoses Not on filedocumented in this encounter"
--- OUTSIDE RECORDS SUMMARY | ~2019-05-17 | XMS | Encounter Summary ---
Demographics + + + | Address | [address] | | | [place] [address] | + + + | Home Phone [...] Providers + +------+ + | Care Senior Energy Analyst Name | Role | Phone | + +------+ + | Pending Pcp Addition | PCP | Unavailable | + +------+ + Reason for Visit + + + | Reason | Comments | + + + | Lab Draw | PORT | + + + | Dressing change | PORT | + + + | Medication | mag+ | + + + Office Visit - [...] | | | | | remission | [address] | [facility] | | | | | | Phone: | [facility] | | | | | Procedures | [phone] | [place], [place] | | | | | Post BMT | Fax: | [address] | | | | | Auth to | [phone] | Phone: | | | | | included | | [phone] | | | | | facility, | | Fax: | | | | | diagnostics, | | [phone] | | | | | office | | | | | | | visits and | | | | | | | surgery | | | +--------+---------+ + + + + Encounter Details +--------+ + + + + | Date | Type | Department | Care Team | Description | +--------+ + + + + | 11/17/ | Clinical | Center for | | Lab Draw ([facility]); | | 2015 | Support | Hematologic | | Dressing change | | | Staff | Malignancies at [facility] | | ([facility]); Medication | | | | [address] | | (mag+) | | | | [place]bi Burger Mailcode: | | | | | | [id number] | | | | | | [place], | | | | | | [place] [address] | | | | | | [phone] | | | +--------+ + + + [...] + + + | Blood Pressure | 153/94 | 11/18/2015 9:25 AM | | | | | PDT | | + + + + + | Pulse | 60 | 11/18/2015 9:25 AM | | | | | PDT | | + + + + + | Temperature | 37.1 C (98.8 F) | 11/18/2015 9:25 AM | | | | | PDT | | + + + + + | Respiratory Rate | 18 | 11/18/2015 9:25 AM | | | | | PDT | | + + + + + | Oxygen Saturation | 100% | 11/18/2015 9:25 AM | | | | | PDT | | + + + + + | Inhaled Oxygen | - | - | | | Concentration | | | | + + + + + | Weight | 82.4 kg (181 lb 10.5 | 11/18/2015 9:25 AM | | | | oz) | PDT | | + + + + + | Height | - | - | | + + + + + | Body Mass Index | 23.48 | 08/18/2015 4:35 PM | | | | | PST | | + + + + + documented in this encounter Progress Notes Samantha Padilla, ZAFAR - 11/18/2015 10:38 AM PDTINFUSION/TRANSFUSION NURSING NOTE Name: Khurram Kelly Date: 11/18/2015 Provider: Joseph Holder Narrative: He is currently day +81 s/p transplant and presents to clinic today for labs and infusion plan follow up Assessment: Pt ambulated to clinic today with at side, he states he is feeling great. Pt states they are negative for dizziness, BOWER, swelling, SOB, cold/flu, fever/chills, mucosi tis, N/V, peripheral neuropathy. They state they are eating and drinking well and have had g ood strength. He has some small red pin-head sized dots to bilateral arms which he states bower s improved. MD is aware. Patient on Tacrolimus, states did not take today in anticipation of labs. Currently taking 1 mg BID. Educated patient we will contact them later today regarding level. Line Care: Neostar intact to left anterior chest wall without erythema or induration. Dressing remove d, skin intact without s/s exit site or tunnel infection. Using a Central Line Dressing Lora nge kit, site cleansed with Chloraprep. Skin prep applied prior to dressing application. B iopatch applied with Tegaderm dressing. Positive pressure valves changed to each port. Al l lumens pulse flushed with 10 mL NS. Patient tolerated procedure without difficulty. VAD Lab Draw: Neostar accessed per protocol. Good blood return noted. Appropriate waste discarded. Lab s drawn and sent. Neostar pulse flushed with 20 mL NS. Treatment Provided: Per infusion plan: Magnesium Sulfate 4 gm in 100 mL NS infused over 2 hours per supportive care orders for a m agnesium level of 1.7 on 11/14 and 1.7 today. For infusion details, see MAR. Patient was reminded to call clinic with temp > 100.4, chills, s/s of bleeding or uncontrol led N/V/D/C. Patient verbalizes understanding. Patient was instructed to check out at the ont desk prior to leaving the clinic. Patient d/c d ambulatory with . Next Appointment in [facility] is on 11/22/15 at 8:45 am with ORLY Yanes. Faviola Champagne MA - 11/18/2015 9:27 AM NIKKOI Faviola Bliss CMA am functioning as a scribe for Fatimah Hull who is a Pump Mechanic Licensed [employer]. I have reviewed and verified the information that I'm enter ing for this patient is accurate. documented in this enco unter Plan of [...] Rd | | | | | | [place], [place] | | | | | | [address] | | | | | | [phone] | | | | | | | | +--------+---------+ + + + documented as of this encounter Procedures + +--------+ + + + | Procedure Name | Priori | Date/Time | Associated Diagnosis | Comments | | | ty | | | | + +--------+ + + + | BMP + MAG, POC CHM | Routin | 11/18/2015 | S/P allogeneic | Results for this | | | e | 10:05 AM | bone marrow | procedure are [...] + + | CBC+DIFF,POC | Routin | 11/18/2015 | S/P allogeneic | Results for this [...] + | TACROLIMUS, WHOLE | Routin | 11/18/2015 | S/P allogeneic | Results for this | | BLOOD | e | 9:23 AM | bone marrow | procedure are [...] + | TREATMENT PARAMETERS | Routin | 11/18/2015 | 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), M4 | | | | | PDT | ([facility])- primary | | | | | | induction failure | | + +--------+ + + + | TREATMENT PARAMETERS | Routin | 11/18/2015 | 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), M4 | | | | | PDT | ([facility])- primary | | | | | | induction failure | | + +--------+ + + + | TREATMENT PARAMETERS | Routin | 11/18/2015 | 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), M4 | | | | | PDT | ([facility])- primary | | | | | | induction failure | | + +--------+ + + + | TREATMENT PARAMETERS | Routin | 11/18/2015 | 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), M4 | | | | | PDT | ([facility])- primary | | | | | | induction failure | | + +--------+ + + + | TREATMENT PARAMETERS | Routin | 11/18/2015 | 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), M4 | | | | | PDT | ([facility])- primary | | | | | | induction failure | | + +--------+ + + + | NURSING | Routin | 11/18/2015 | S/P allogeneic | | | COMMUNICATION #5 - | e | 9:21 AM | bone marrow | | | [place] | | PDT | transplant (HCC) | | | | | | Acute myeloid | | | | | | leukemia (AML), M4 | | | | | | ([facility])- primary | | | | | | induction failure | | + +--------+ + + + | NURSING | Routin | 11/18/2015 | S/P allogeneic | | | COMMUNICATION #4 - | e | 9:21 AM | bone marrow | | | [place] | | PDT | transplant ([facility]) | | | | | | Acute myeloid | | | | | | leukemia (AML), M4 | | | | | | ([facility])- primary | | | | | | induction failure | | + +--------+ + + + | NURSING | Routin | 11/18/2015 | S/P allogeneic | | | COMMUNICATION #3 - | e | 9:21 AM | bone marrow | | | [place] | | PDT | transplant (HCC) | | | | | | Acute myeloid | | | | | | leukemia (AML), M4 | | | | | | ([facility])- primary | | | | | | induction failure | | + +--------+ + + + | NURSING | Routin | 11/18/2015 | S/P allogeneic | | | COMMUNICATION #3 - | e | 9:21 AM | bone marrow | | | [place] | | PDT | transplant (HCC) | 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 | | + +--------+ + + + | NURSING | Routin | 11/18/2015 | S/P allogeneic | | | COMMUNICATION #2 - | e | 9:21 AM | bone marrow | | | [place] | | PDT | transplant (HCC) | 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 | | + +--------+ + + + | NURSING | Routin | 11/18/2015 | S/P allogeneic | | | COMMUNICATION #2 - | e | 9:21 AM | bone marrow | | | [place] | | PDT | transplant (HCC) | 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 | | + +--------+ + + + | NURSING | Routin | 11/18/2015 | S/P allogeneic | | | COMMUNICATION #1 - | e | 9:21 AM | bone marrow | | | [place] | | PDT | transplant (HCC) | 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 | | + +--------+ + + + | NURSING | Routin | 11/18/2015 | S/P allogeneic | | | COMMUNICATION #1 - | e | 9:21 AM | bone marrow | | | [place] | | PDT | transplant (HCC) | 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 | | + +--------+ + + + | GUIDELINES FOR | Routin | 11/18/2015 | S/P allogeneic | | | ORDERING #1 - [place] | e | 9:21 AM | bone marrow | | | | | PDT | transplant (HCC) | 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 | | + +--------+ + + + | TREATMENT PARAMETERS | Routin | 11/18/2015 | S/P allogeneic | | | #1 - [place] | e | 9:21 AM | bone marrow | | | | | PDT | transplant (HCC) | 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 | | + +--------+ + + + | TREATMENT PARAMETERS | Routin | 11/18/2015 | S/P allogeneic | | | #1 - [place] | e | 9:21 AM | bone marrow | | | | | PDT | transplant (HCC) | 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 | | + +--------+ + + + | TREATMENT PARAMETERS | Routin | 11/18/2015 | S/P allogeneic | | | #1 - [place] | e | 9:21 AM | bone marrow | | | | | PDT | transplant (HCC) | 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 | | + +--------+ + + + documented in this encounter Results BMP + MAG, POC CHM (11/18/2015 10:05 AM PDT) + +---------+ + + [...] + + + | LDH, POC | 206 | 0 - 206 U/L | [facility] [...] [facility] | [address] | [place], [place] | | | RUTHIE CARTER [facility] | [address] | [address] | | | TESTS | | | | + + + + + INGRID+PHIL GRIJALVA (11/18/2015 9:49 AM PDT) + + + + + + | Component | Value | Ref Range | Performed | Pathologist | | | | | At | Signature | + + + + + + | WBC POC | 3.8 (L) | 4.4 - 11.0 | [facility] - | | | | | 10*3/uL | [facility] | | | | | | RUTHIE CARTER | | | | | | OF CARE | | | | | | TESTS | | + + + + + + | RBC POC | 3.47 (L) | 4.50 - 6.00 | [facility] [...] + + + | MCV POC | 101.4 (H) | 80.0 - 96.0 fL | [...] + + + | PLT POC | 30 (L) | 150 - 400 | [facility] - | | | | | 10*3/uL | [facility] | | | | | | [facility] | | | | | | OF CARE | | | | | | TESTS | | + + + + + + | MPV POC | 8.5 (L) | 9.7 - 12.3 fL | [facility] - | | | | | | [facility] | | | | | | [facility] | | | | | | OF CARE | | | | | | TESTS | | + + + + + + | NEUTROPHIL% | 55.6 | 50.0 - 70.0 % | [facility] - | | | POC | | | [facility] | | | | | | [facility] | | | | | | OF CARE | | | | | | TESTS | | + + + + + + | LYMPH% POC | 37.5 | 18 - 42 % | [facility] [...] + + + + | NEUTROPHIL# | 2.1 | 1.8 - 7.7 | [facility] - [...] [facility] | [address] | [place], [place] | | | [facility] | [address] | [address] | | | TESTS | | | | + + + + + TACROLIMUS, WHOLE BLOOD (11/18/2015 9:23 AM PDT) + +-------+ + + + | Component | Value | Ref Range | Performed | Pathologist | | | | | At | Signature | + +-------+ + + + | TACROLIMUS | 9.9 | 5.0 - 15.0 | [facility] | [...] [facility] | [address] | [place] [address] | | | SERVICES, SPECIAL | [address]ARK [...] 10 unit/mL IV flush | Given | 11/18/19 | 50 Units | | | | syringe 50 Units 50 Units, | | 16 12:14 | | | | | Intracatheter, NEEDED, | | PM PDT | | | | | Starting [facility] 11/18/15 at 1041, | | | | | | | Until [facility] 11/18/15 at 1906, line | | | | | | | patency | | | | | | + +--------+ + +------+------+ +---+---+ | | | +---+---+ + +-------+ + +---+---+ | heparin 10 unit/mL IV flush | Given | 11/18/19 | 50 Units | | | | syringe 50 Units 50 Units, | | 16 12:14 | | | | | Intracatheter, NEEDED, | | PM PDT | | | | | Starting [facility] 11/18/15 at 1214, | | | | | | | Until [facility] 11/18/15 at 1906, line | | | | | | | patency | | | | | | + +-------+ + +---+---+ +---+---+ | | | +---+---+ + +-------+ + +---+---+ | heparin 10 unit/mL IV flush | Given | 20 | 50 Units | | | | syringe 50 Units 50 Units, | | 16 12:14 | | | | | Intracatheter, NEEDED, | | PM PDT | | | | | Starting [facility] 11/18/15 at 1214, | | | | | | | Until [facility] 11/18/15 at 1906, line | | | | | | | patency | | | | | | + +-------+ + +---+---+ +---+---+ | | | +---+---+ + +---------+ +-----+---+---+ | magnesium sulfate in water IV | New Bag | 11/18/19 | 2 g | | | | (RTU) 2 g 2 g, intravenous, | | 16 9:30 | | | | | ONCE, 1 dose, [facility] 11/18/15 at 0930 | | AM PDT | | | | + +---------+ +-----+---+---+ +---+---+ | | | +---+---+ + +---------+ +-----+---+---+ | magnesium sulfate in water IV | New Bag | 11/18/19 | 2 g | | | | (RTU) 2 g 2 g, intravenous, | | 16 10:30 | | | | | ONCE, 1 dose, [facility] 11/18/15 at 1045 | | AM PDT | | | | + +---------+ +-----+---+---+ +---+---+ | | | +---+---+ documented in this encounter"
--- OUTSIDE RECORDS SUMMARY | ~2019-05-17 | XMS | Encounter Summary ---
Demographics + + + | Address | [address] | | | [place] [address] | + + + | Home Phone [...] Team Providers + +------+ + | Care Police Captain Senior Name | Role | Phone | + [...] Rd | Tacrolimus) | | | | [facility] | [place], [place] | | | | | [address] | [address] | | | | | [facility] Mailcode: | [phone] | | | | | [facility] | | | | | | Pavilion [place], | | | | | | [place] [address] | | | | | | [phone] | | | +--------+ + + + [...] Rd | | | | | | [place] | | | | | | [address] | | | | | | [phone] | | | | | | | | +--------+---------+ + + + documented as of this encounter Visit Diagnoses Not on filedocumented in this encounter"
--- OUTSIDE RECORDS SUMMARY | ~2019-05-17 | XMS | Encounter Summary ---
Demographics + + + | Address | [address] | | | [place] [address] | + + + | Home Phone [...] Providers + +------+ + | Care Press Offbearer Name | Role | Phone [...] | | | | | at [facility] | [facility] | | | | | [address] | [place] [address] | | | | | [facility] | | | | | | Mailcode: [id number] [address] | | | | | | [address] | | | | | | [facility] | | | | | | [place] [address] | | | | | | [phone] | | | +--------+ + + + [...] [place] | | | | | | [address] | | | | | | [phone] | | | | | | | [...] | e | 9:48 AM | leukemia) ([facility]) | procedure are in the | | [...] DEPT OF | [address] | [place], [place] | | | CARDIOLOGY | [address] | [address] | | + + + + + documented in this encounter Visit Diagnoses Not on filedocumented in this encounter"
--- OUTSIDE RECORDS SUMMARY | ~2019-05-17 | XMS | Encounter Summary ---
Demographics + + + | Address | [address] | | | [place] [address] | + + + | Home Phone [...] Team Providers + +------+ + | Care Telephone Station Installer Name | Role | Phone | + +------+ + | Zayda Hinton | PCP | | + +------+ + Encounter Details +--------+ + + + + | Date | Type | Department | Care Team | Description | +--------+ + + + + | 09/13/ | Pharmacy | Specialty Pharmacy | | | | 2015 | Visit | Services [address] | | | | | | [address] | | | | | | [place], [place] | | | | | | [address] | | | | | | [phone] | | | +--------+ + + + [...] Rd | | | | | | [place], [place] | | | | | | [address] | | | | | | [phone] | | | | | | | | +--------+---------+ + + + documented as of this encounter Visit Diagnoses Not on filedocumented in this encounter"
--- OUTSIDE RECORDS SUMMARY | ~2019-05-17 | XMS | Encounter Summary ---
Demographics + + + | Address | [address] | | | [place] [address] | + + + | Home Phone [...] Team Providers + +------+ + | Care Jack Spinner Name | Role | Phone | + [...] Rd | | | | | [address] | [place], [place] | | | | | Debi Mailcode: | [address] | | | | | [facility] | [phone] | | | | | [place], | | | | | | [place] [address] | | | | | | [phone] | | | +--------+ + + + [...] Rd | | | | | | [place], [place] | | | | | | [address] | | | | | | [phone] | | | | | | | | +--------+---------+ + + + documented as of this encounter Visit Diagnoses Not on filedocumented in this encounter"
--- OUTSIDE RECORDS SUMMARY | ~2019-05-17 | XMS | Encounter Summary ---
Demographics + + + | Address | [address] | | | [place] [address] | + + + | Home Phone [...] Providers + +------+ + | Care Test Engine Mechanic Name | Role | Phone | [...] | | | | | achieved | [place], [place] | [id number] | | | | | remission | [address] | Harvey | | | | | | Phone: | Asha | | | | | Procedures | [phone] | [place], [place] | | | | | Post BMT | Fax: | [address] | | | | | Auth to | [phone] | Phone: | | | | | included | | [phone] | | | | | facility, | | Fax: | | | | | diagnostics, | | [phone] | | | | | office | [...] marrow transplant | | | | at [facility] 3rd Floor | | ([facility]) | | | | [address] | | | | | | [place], | | | | | | [place] [address] | | | | | | [phone] | | | +--------+------+ + + + [...] Rd | | | | | | [place], [place] | | | | | | [address] | | | | | | [phone] | | | | | | | [...] | | | PDT | transplant ([facility]) | results section. | + +--------+ + + + | CBC, WITH | Routin | 11/23/2016 | S/P allogeneic | Results for this | | DIFFERENTIAL | e | 9:36 AM | bone marrow | procedure are in the | | | | PDT | transplant ([facility]) | results section. | + +--------+ + + + | COMPLETE METABOLIC | Routin | 11/23/2016 | S/P allogeneic | Results for this | | SET | e | 9:36 AM | bone marrow | procedure are in the | | (NA,K,CL,CO2,BUN,CRE | | PDT | transplant ([facility]) | results section. | | AT,GLUC,CA,AST,ALT,B [...] | | | PDT | transplant ([facility]) | results section. | + +--------+ + + + | PHOSPHORUS, PLASMA | Routin | 11/23/2016 | S/P allogeneic | Results for this | | | e | 9:36 AM | bone marrow | procedure are in the | | | | PDT | transplant ([facility]) | results section. | + +--------+ + + + | BILIRUBIN DIRECT | Routin | 11/23/2016 | S/P allogeneic | Results for this | | | e | 9:36 AM | bone marrow | procedure are in the | | | | PDT | transplant ([facility]) | results section. | + +--------+ + + + | URIC ACID, PLASMA | Routin | 11/23/2016 | S/P allogeneic | Results for this | | | e | 9:36 AM | bone marrow | procedure are in the | | | | PDT | transplant ([facility]) | results section. | + +--------+ + + + | MAGNESIUM, PLASMA | Routin | 11/23/2016 | S/P allogeneic | Results for this | | | e | 9:36 AM | bone marrow | procedure are in the | | | | PDT | transplant ([facility]) | results section. | + +--------+ + + + | LDH TOTAL, PLASMA | Routin | 11/23/2016 | S/P allogeneic | Results for this | | | e | 9:36 AM | bone marrow | procedure are in the | | | | PDT | transplant ([facility]) | results [...] + + + + | [facility] | [address] | [place] [address] | | | SERVICES, CORE | WALLY [...] <2.0 (L) | 5.0 - 15.0 | [facility] | | | ([address]) | | [...] + | Test performed by immunoassay using [employer] i2000. . | [facility] | | Samples [...] [facility] | [address] | [place] [address] | | | SERVICES, SPECIAL | PARK [...] [facility] | [address] | [place] [address] | | | KOLE, INDRA | WALLY [...] [facility] | [address] | [place] [address] | | | SERVICES, CORE | PARK [...] | + + + + + | [facility] | [address] | [place] [address] | | | SERVICES, CORE | WALLY [...] [facility] | [address] | [place] [address] | | | SERVICES, CORE | WALLY [...] [facility] | [address] | [place] [address] | | | SERVICES, CORE | PARK [...] | | | LABORATORY | | | [facility] | | | SERVICES, | | | [...] | + + + + + | [facility] | [address] | [place] [address] | | | SERVICES, CORE | [address] | | | + + + + + documented in this encounter Visit Diagnoses + + | Diagnosis | + + | 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
--- OUTSIDE RECORDS SUMMARY | ~2019-05-17 | XMS | Encounter Summary ---
Demographics + + + | Address | [address] | | | [place] [address] | + + + | Home Phone [...] Team Providers + +------+ + | Care Varnish Remover Name | Role | Phone | + [...] Barry | | | | | | [address] | | | | | | [place] Mailcode: | | | | | | [id number] | | | | | | [place], | | | | | | [place] [address] | | | | | | [phone] | | | +--------+ + + + [...] Rd | | | | | | [place], [place] | | | | | | [address] | | | | | | [phone] | | | | | | | [...] [facility] | [address] | [place], [place] | | | [facility] | [address] | [address] | | | TESTS | | | [...] - [facility] | [address] | [place], [place] | | | [facility] [place] [facility] | [address] | [address] | | | TESTS | | | [...] | + + + + + | [facility] | [address] | [place] [address] | | | SERVICES, INDRA | [address] [...]
--- OUTSIDE RECORDS SUMMARY | ~2019-05-17 | XMS | Encounter Summary ---
Demographics + + + | Address | [address] | | | [place] [address] | + + + | Home Phone [...] Team Providers + +------+ + | Care Gypsum Roofer Name | Role | Phone | + [...] [address] | | | | | | [place], [place] | | | | | | [address] | | | | | | [phone] | | | +--------+ + + + [...] 2019 | Visit | Malignancy | [address] | | | | | | [address] | | | | | | [place], [place] | | | | | | [address] | | | | | | [phone] | | | | | | | | +--------+---------+ + + + documented as of this encounter Visit Diagnoses Not on filedocumented in this encounter"
--- OUTSIDE RECORDS SUMMARY | ~2019-05-17 | XMS | Encounter Summary ---
Demographics + + + | Address | [address] | | | [place] [address] | + + + | Home Phone [...] Team Providers + +------+ + | Care Cushion Stuffer Name | Role | Phone | + +------+ + | Pending Pcp Addition | PCP | Unavailable | + +------+ + Reason for Visit + + + | Reason | Comments | + + + | Procedure | bone marrow aspirate and biopsy | + + + Benefits Check (Routine) [...] | | | | | | [place], | | | | | | | [place] | | | | | | | [address] | | | | | | | Phone: | | | | | | | [phone] | | | | | | | Fax: | | | | | | | [phone] | +--------+--------+ + + + + Encounter Details +--------+---------+ + + + | Date | Type | Department | Care Team | Description | +--------+---------+ + + + | 08/09/ | Office | Center for | Aspen Cummins FNP | 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), M4 | | | | Malignancies at | [address] | (HCC) (Primary Dx) | | | | [facility] | [place], [place] | | | | | [address] | [address] | | | | | [employer] Mailcode: | [phone] | | | | | [id number] [facility] | | | | | | [place], | | | | | | [place] [address] | | | | | | [phone] | | | +--------+---------+ + + + [...] + + + | Blood Pressure | 102/65 | 08/09/2015 8:59 AM | | | | | PST | | + + + + + | Pulse | 67 | 08/09/2015 2:52 PM | | | | | PST | | + + + + + | Temperature | 36.7 C (98.1 F) | 08/09/2015 8:59 AM | | | | | PST | | + + + + + | Respiratory Rate | 16 | 08/09/2015 8:59 AM | | | | | PST | | + + + + + | Oxygen Saturation | 100% | 08/09/2015 2:52 PM | | | | | PST | | + + + + + | Inhaled Oxygen | - | - | | | Concentration | | | | + + + + + | Weight | 81.8 kg (180 lb 5.4 | 08/09/2015 8:59 AM | | | | oz) | PST | | + + + + + | Height | - | - | | + + + + + | Body Mass Index | 22.84 | 07/15/2015 1:57 PM | | | | | PST | | + + + + + documented in this encounter Patient Instructions Patient Instructions Aspen Cummins FNP - 08/09/2015 8:25 AM PST Post Bone Marrow Biopsy Instructions 1. Keep your dressing dry for the next 24 hours; no shower or bath until tomorrow. 2. If you notice any signs of infection at the biopsy site (redness, tenderness, drainage) , please call the Triage nurse at ([phone]) or BMT person on-call ([phone]) after hours. 3. Because you received sedating medication (morphine), you may not drive for at least 8 h ours. documented in this encounter Progress Notes Aspen Cummins FNP - 08/09/2015 8:25 AM PST08/09/2015 [facility] Procedure Note Procedure: Bone marrow aspirate and biopsy with anxiolysis. Indications: Pt with primary refractory acute myeloid leukemia; evaluate disease status pr ior to transplant. Team Pause: At 1425, prior to the beginning of the procedure the team paused to verify the patient's identity, as well as the procedure to be performed and the correct side/site. Al l equipment required was ready and available. The patient was positioned appropriately. The following team members were present during the team pause: Roxy Hussein MA; ORYL Giang. Description: Written consent for bone marrow aspirate and biopsy was obtained from the pat ient following a brief discussion regarding the risks and benefits of the procedure. He was pre-medicated with Morphine 3 mg IV. He was then placed in the prone position and the skin o marco his left posterior iliac crest was cleansed with betadine and draped in a sterile manner . Lidocaine was used for local anesthesia. A scalpel was used to enlarge the insertion site. A Jamshidi needle was inserted. The first aspirate yielded sufficient spicules per Alex rollins; 1 mL was submitted for morphology studies. A second aspirate was obtained in a heparin ized syringe and submitted for flow cytometry and cytogenetics with reflex FISH. A third asp irate was obtained in an unheparinized syringe and submitted for [facility]. A total of 10 mL of marrow was aspirated. The needle [...] [facility] AT [address] Mailcode: [id number] [id number] documented in this enc ounter Plan of [...] [address] | | | | | | [place], [place] | | | | | | [address] | | | | | | [phone] | | | | | | | | +--------+---------+ + + + documented as of this encounter Procedures + +--------+ + + + | Procedure Name | Priori | Date/Time | Associated Diagnosis | Comments | | | ty | | | | + +--------+ + + + | GENETRAILS AML/MDS | Routin | 08/09/2015 | Acute myeloid | Results for this | | GENE MUTATION PANEL, | e | 8:29 AM | leukemia (AML), M4 | procedure are in the | | BM (LABEL) | | PST | (HCC) | results section. | + +--------+ + + + | CYTOGENETICS BONE | Routin | 08/09/2015 | Acute myeloid | | | MARROW ALL FISH | e | 8:29 AM | leukemia (AML), M4 | | | PANEL | | PST | (HCC) | | + +--------+ + + + | LEUKEMIA/LYMPHOMA | Routin | 08/09/2015 | Acute myeloid | | | MARKERS - BONE | e | 8:29 AM | leukemia (AML), M4 | | | MARROW | | PST | (HCC) | | + +--------+ + + + | [place] BONE MARROW ASP | Routin | 08/09/2015 | Acute myeloid | | | SAME DAY BIOPSY | e | 8:25 AM | leukemia (AML), M4 | | | | | PST | (HCC) | | + +--------+ + + + | [place] BONE MARROW BX, | Routin | 08/09/2015 | Acute myeloid | | | NEEDLE/TROCAR | e | 8:25 AM | leukemia (AML), M4 | | | | | PST | ([facility]) | | + +--------+ + + + | GENETRAILS AML/MDS | Routin | 08/09/2015 | Acute myeloid | Results for this | | GENE MUTATION PANEL, | e | | leukemia (AML), M4 | procedure are in the | | BM (PP) | | | ([facility]) | results section. | + +--------+ + + + | GENETRAILS AML/MDS | Routin | 08/09/2015 | Acute myeloid | Results for this | | GENE MUTATION PANEL, | e | | leukemia (AML), M4 | procedure are in the | | BM | | | (HCC) | results section. | + +--------+ + + + | CYTOGENETICS BONE | Routin | 08/09/2015 | Acute myeloid | Results for this | | MARROW CHROMOSOME | e | | leukemia (AML), M4 | procedure are in the | | ANALYSIS W/ REFLEX | | | ([facility]) | results section. | | FISH (PP) | | | | | + +--------+ + + + | LEUKEMIA/LYMPHOMA | Routin | 08/09/2015 | Acute myeloid | Results for this | | MARKERS - BONE | e | | leukemia (AML), M4 | procedure are in the | | MARROW (PP) | | | ([facility]) | results section. | + +--------+ + + + | LEUKEMIA/LYMPHOMA | Routin | 08/09/2015 | Acute myeloid | Results for this | | MARKERS - BONE | e | | leukemia (AML), M4 | procedure are in the | | MARROW | | | ([facility]) | results section. | + +--------+ + + + | CYTOGENETICS BONE | Routin | 08/09/2015 | Acute myeloid | Results for this | | MARROW CHROMOSOME | e | | leukemia (AML), M4 | procedure are in the | | ANALYSIS W/ REFLEX | | | ([facility]) | results section. | | FISH | | | | | + +--------+ + + + documented in this encounter Results [facility] G[facility]UTATION PANEL, BM (LABEL) (08/09/2015 8:29 AM PST) + + + + + [...] + + + + | [facility] | [address] | [place] [address] | | | DIAGNOSTIC | [address] | | | | LABORATORIES | | | | + + + + + CYTOGENETICS BONE MARROW CHROMOSOME ANALYSIS W/ REFLEX FISH (LABEL) (08/09/2015 8:29 AM PS T) + + | Specimen | + + | Bone marrow - Bone | | marrow structure | | (body structure) | + + + + + + + | Performing | Address | City/State/Zipcode | Phone Number | | Organization | | | | + + + + + | [facility] | [address], | [place] [address] | | | DIAGNOSTIC | [address] | | | | LABORATORIES | | | | + + + + + LEUKEMIA/LYMPHOMA MARKERS - BONE MARROW (LABEL) (08/09/2015 8:29 AM PST) + + | Specimen | + + | Bone marrow - Bone | | marrow structure | | (body structure) | + + + + + + + | Performing | Address | City/State/Zipcode | Phone Number | | Organization | | | | + + + + + | [facility] | [address] | [place] [address] | | | SERVICES, SPECIAL | [address] | | | | IMM + COAG | | | | + + + + + GENETRAILS AML/MDS GENE MUTATION PANEL, BM (PP) (08/09/2015) + + + + + + | Component | Value | Ref Range | Performed | Pathologist | | | | | At | Signature | + + + + + + | GENETRAILS | A [facility] AML/MDS | | [facility] | | | AML/MDS | Gene Mutation [...] | | | | | | one persistent NRAS gene | | | | | | mutation has been found | | | | | | at a verylow allele | | | | | | burden (~0.9%) in this | | | | | | AML post-treatment bone | | | | | | marrow specimen.This | | | | | | mutation was detected at | | | | | | high levels in the | | | | | | patient's diagnostic | | | | | | NGSstudy (May | | | | | | 2014). Gene: | | | | | | NRASMutation: | | | | | | p.H96VWlcamd Allele | | | | | | frequency: ~0.9% | | | | | | (previously ~40% in | | | | | | May 2015)Variant | | | | | | ID: [id number] | | | | | | Average# of DNA sequence | | | | | | reads (ie, depth of | | | | | | coverage) for each of | | | | | | the 42genes: 1453 | | | | | | Each of the 41 | | | | | | genes [...] | | | | | 100% HRAS 100%BCOR 100% | | | | | | IDH1 100% PAX5 100%CBL | | | | | | 100% IDH2 100% PTPN11 | | | | | | 100%CBLB 100% IKZF1 | | | | | | 100% RUNX1 | | | | | | 100%CEBPA 86% | | | | | | [...] | | | | | 95% TET2 100%EZH2 | | | | | [...] 100% | | | | | | *Percent of gene | | | | | [...] | | | in theabove panel of 42 | | | | | | genes, [...] Ion | | | | | | Saisei PGM. The | | | | | [...] supplementary | | | | | | zds-kdzkqmtavl-xpcfz | | | | | | assay [...] on | | | | | | mutation identified in | | | | | | this specimen: | | | | | | Gene Transcript | | | | | | Genome Chrom | | | | | | Start End Ref | | | | | | VarNRAS [id number] hg19 | | | | | | chr1 [id number] | | | | | | [id number] C A | | | | | | Case reviewed by:Kian | | | | | | MD Robby, PhD/ | | | | | | Molecular Genetic | | | | | | Pathology FellowRichard | | | | | | D. MD Ramakrishna, PhD/ | | | | | | Molecular Genetic | | | | | | Pathologist | | | | | | (Analyte [...] # | | | | | | [id number]. It has not | | | | [...] | | | | | determined bythe [facility] | | | | | | Castellon [...] The [facility] | | | | | | DiagnosticsLaboratories | | | | | | are fully licensed by | | | | | | the state of [place] | | | | | | under CLIA and | | | | | | areaccredited by [place] | | | | | | of [place] | | | | | | Pathologists (CAP). | | | | | | Rendering | | | | | | Diagnostician: Yung | | | | | | Ramakrishna PERERA, PhDMolecular | | | | | | Genetic | | | | | | PathologistElectronicall | | | | | | y Signed 09/01/2015 | | | | | | 9:42AM | | | | + + + [...] + + + + | [facility] | [address] | [place] [address] | | | DIAGNOSTIC | [address] | | | | LABORATORIES | | | | + + + + + CYTOGENETICS BONE MARROW CHROMOSOME ANALYSIS W/ REFLEX FISH (PP) (08/09/2015) + + + + + [...] | | | | | | refractory Acute | | LABORATORIE | | | | Myelogenous | | S | | | | LeukemiaChromosome | | | | | | Results: [...] Level: | | | | | | <400Number of | | | | | | [...] clinical | | | | | | energy scheduler. | | | | | | Rendering | | | | | | Diagnostician: Aspen | | | | | | Efrem PhD, ABMG, | | | | | | FACMGClinical | | | | | | CytogeneticistElectronic | | | | | | ally Signed 08/18/2015 | | | | | | 4:40PMRendering | | | | | | Diagnostician: Aspen | | | | | | Joceline PERERA, [facility], | | | | | | FACMGClinical | | | | | | GeneticistElectronically | | | | | | Signed 08/18/2015 | | | | | | 5:38PM | | | | + + + [...] | + + + + + | [facility] | [address], | [place] [address] | | | DIAGNOSTIC | [address] | | | | LABORATORIES | | | | + + + + + LEUKEMIA/LYMPHOMA MARKERS - BONE MARROW (PP) (08/09/2015) + + + + + + | Component | Value | Ref Range | Performed | Pathologist | | | | | At | Signature | + + + + + + | HEMATOPATHO | THIS IS AN AMENDED | | [facility] | | | LOGY | REPORT SOURCE OF | | DEPARTMENT | | | | SPECIMEN:A Bone Marrow | | OF | | | | Aspirate, 1x1.5mL EDTA, | | PATHOLOGY | | | | 1x2mL | | | | | | heparinizedsyringeSOURCE | | | | | | OF SPECIMEN:B Bone [...] | | | | | | leukemiadiagnosed | | | | | | 05/2015 with the | | | | | | following | | | | | | immunophenotype: | | | | | | dimCD13, CD33, | | | | | | CD34,CD56, CD117, and | | | | | | CD123 ([id number]). He | | | | | | has normal | | | | | | cytogenetics/FISH, | | | | | | andmolecular studies | | | | | | show an NRAS mutation | | | | | | ([id number]). His day | | | | | | 14 and day45 marrow have | | | | | | demonstrated residual | | | | | | disease. 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 Gross | | | | | | [...] | | | | | | core measuring1.8 (L) x | | | | | | 0.2 (D) cm in greatest | | | | | | dimension. Both clot | | | | | | and the fragmentbiopsy | | | | | | were fixed in formalin | | | | | | and the core biopsy was | | | | | | decalcified.Anti-coagula | | | | | | edward bone marrow aspirate | | | | | | was also received for | | | | | | flow | | | | | | cytometricanalysis. A | | | | | | Umanzor-stained cytoprep | | | | | | of the cell suspension | | | | | | was prepared | | | | | | formorphologic | | | | | | correlation [...] values. | | | | | | Monocytes vary in | | | | | | maturity, and | | | | | | rarepromonocytes and | | | | | | monocytoid blasts are | | | | | | identified. The red | | | | | | blood cellsshow mild | | | | | | anisopoikilocytosis and | | | | | | mild polychromasia. | | | | | | Neutrophils shownormal | | | | | | nuclear lobation and | | | | | | cytoplasmic granularity. | | | | | | The lymphocytes | | | | | | areheterogeneous. | | | | | | Platelets are sparse but | | | | | | have normal | | | | | | granularity. Bone | | | | | | Marrow Aspirate: The | | | | | | bone marrow aspirate | | | | | | smears are adequate | | | | | | andcontain hypocellular | | | | | | particles for | | | | | | evaluation. There is | | | | | | very littlematuration of | | | | | | myeloid and erythroid | | | | | | lineage, and various | | | | | | stages ofmonocytic | | | | | | development are the | | | | | | predominant marrow | | | | | | population. The myeloid | | | | | | toerythroid ratio is | | | | | | 2:1. Monocytes are | | | | | | present in a variety of | | | | | | forms frommonoblasts to | | | | | | promonocytes to mature | | | | | | appearing monocytes. | | | | | | Megakaryocytesare few, | | | | | | but demonstrate a | | | | | | normal spectrum of size | | | | | | and nuclear | | | | | | lobation.Lymphocytes are | | | | | | heterogeneous. Plasma | | | | | | cells are not increased. | | | | | | The touchimprints show | | | | | | similar findings. | | | | | | A bone marrow aspirate | | | | | | differential count | | | | | | includes: Myeloid | | | | | | %, erythroid | | | | | | precursors 7%, | | | | | | lymphocytes 13%, | | | | | | blasts/blast | | | | | | [id number]%, | | | | | | monocytes 15%, and | | | | | | plasma cells 1%. | | | | | | Bone Marrow Biopsy and | | | | | | Clot Section: The bone | | | | | | marrow biopsy has 2 cm | | | | | | ofevaluable marrow. | | | | | | Cellularity is | | | | | | approximately 5% and the | | | | | | composition issimilar | | | | | | to the aspirate. There | | | | | | is almost absent | | | | | | hematopoiesis. No | | | | | | atypicallymphoid cell | | | | | | clusters are identified. | | | | | | Megakaryocytes are | | | | | | sparse, butnormal. The | | | | | | clot section shows | | | | | | findings similar to the | | | | | | biopsy. | | | | | | Immunologic Analysis:The | | | | | | analysis was performed | | | | | | by flow cytometry on the | | | | | | bone marrow | | | | | | aspirate.CD34+ blasts | | | | | | comprise 9% of CD45+ | | | | | | cells and have the | | | | | | followingimmunophenotype | | | | | | : dim CD13, CD33, CD34, | | | | | | dim CD56, CD 117, and | | | | | | dim [id number]. | | | | | | Myeloid precursors are | | | | | | few in number. | | | | | | Monocytes account for | | | | | | ~50%of WBCs, are | | | | | | immunophenotypically | | | | | | atypical and have the | | | | | | followingimmunophenotype | | | | | | : CD11b, CD13, CD14, dim | | | | | | CD56, CD64, and HLA-DR | | | | | | positive.Lymphocytes | | | | | | account for 20% of CD45+ | | | | | | cells and include 92% T | | | | | | cells, 1% Bcells and 7% | | | | | | NK cells. T cells show | | | | | | a CD4:CD8 ratio of 2:1 | | | | | | without aberrantantigen | | | | | | expression. B cells are | | | | | | too few in number to | | | | | | meaningfully assignlight | | | | | | chain expression. | | | | | | Please see below for | | | | | | antibodies tested. | | | | | | Antibodies Tested | | | | | | CD2 sCD3 CD4 CD5 | | | | | | CD7 CD8 CD10 | | | | | | [id number] CD14 CD15 CD16 | | | | | | CD19 CD20 CD33 [id number] | | | | | | CD45 CD56 CD58 CD64 | | | | | | CD71 CD117 | | | | | | CD153nIiakh sLambda | | | | | | HLA-DR | | | | | | Immunohistochemical | | | | | | Stains: Additional | | | | | | immunologic analysis was | | | | | | performedon paraffin | | | | | | sections of the bone | | | | | | marrow biopsy by an | | | | | | immunoperoxidasetechniqu | | | | | | e, using theCD34 and | | | | | | CD68 antibodies, which | | | | | | demonstrate 5-10% CD34+ | | | | | | blasts and >50% ofcells | | | | | | CD68+ cells of monocytic | | | | | | lineage. | | | | | | (Immunohistochemical [...] | | | | cs determined by [facility] | [...] testing.) | | | | | | Pre-Amendment: | | | | | | Laboratory | | | | | | Data:08/09/2015 08:04AM | | | | | | Ref | | | | | | Range Value WHITE | | | | | | CELL COUNT | | | | | | 4.40-11.00 K/cu mm | | | | | | 0.43 (L)RED CELL COUNT | | | | | | 4.50-6.00 M/cu mm | | | | | | 2.84 (L)HEMOGLOBIN | | | | | | 13.5-17.5 g/dL 7.9 | | | | | | (L)HEMATOCRIT | | | | | | 41.0-53.0 % 22.4 | | | | | | (L)MCV 80.0-96.0 fL | | | | | | 78.9 (L)MCHC 33.0-35.5 | | | | | | g/dL 35.3RDW SD | | | | | | 35.1-46.3 fL 32.4 | | | | | | (L)PLATELET COUNT | | | | | | 150-400 K/cu mm 11 | | | | | | (L)MPV 9.7-12.3 fL | | | | | | 10.9NRBC% | | | | | | 0.0-0.3 % 0.0NRBC# | | | | | | 0.00-0.02 K/cu mm | | | | | | 0.00NEUTROPHIL % | | | | | | 50.0-70.0 %Comments: WBC | | | | | | <=500; differential not | | | | | | performed.LYMPHOCYTE % | | | | | | 18.0-42.0 %Comments: | | | | | | WBC <=500; differential | | | | | | not performed.MONOCYTE % | | | | | | 3.5-9.0 | | | | | | %Comments: WBC <=500; | | | | | | differential not | | | | | | performed.EOS % | | | | | | 1.0-3.0 %Comments: WBC | | | | | | <=500; differential not | | | | | | performed.BASO % | | | | | | 0.0-2.0 %Comments: WBC | | | | | | <=500; differential not | | | | | | performed.IMMATURE | | | | | | GRANULOCYTE% | | | | | | 0.0-0.6 %Comments: WBC | | | | | | <=500; differential not | | | | | | performed.NEUTROPHIL # | | | | | | 1.80-7.70 K/cu | | | | | | mmComments: WBC <=500; | | | | | | differential not | | | | | | performed.LYMPHOCYTE # | | | | | | 1.00-4.80 K/cu | | | | | | mmComments: WBC <=500; | | | | | | differential not | | | | | | performed.MONOCYTE # | | | | | | 0.10-0.90 K/cu | | | | | | mmComments: WBC <=500; | | | | | | differential not | | | | | | performed.EOS # | | | | | | 0.00-0.50 K/cu | | | | | | mmComments: WBC <=500; | | | | | | differential not | | | | | | performed.BASO # | | | | | | 0.00-0.10 K/cu | | | | | | mmComments: WBC <=500; | | | | | | differential not | | | | | | performed.IMMATURE | | | | | | GRANULOCYTE# | | | | | | 0.00-0.03 K/cu | | | | | | mmComments: WBC <=500; | | | | | | differential not | | | | | | performed. My | | | | | | [...] | | | | | florin Signed 08/12/2015 | | | | | | 11:33AM | | | | + + + [...] | + + + + + | [facility] | [address] | [place] [address] | | | PATHOLOGY | [address] | | | + + + + + documented in this encounter Visit Diagnoses + + | Diagnosis | + + | Acute myeloid leukemia (AML), M4 (HCC) - Primary | + + documented in this encounter"
--- OUTSIDE RECORDS SUMMARY | ~2019-05-17 | XMS | Encounter Summary ---
Demographics + + + | Address | [address] | | | [place] [address] | + + + | Home Phone [...] Team Providers + +------+ + | Care Issuing Operator Name | Role | Phone | + +------+ + | Zayda Hinton | PCP | | + +------+ + Encounter Details +--------+ + + + + | Date | Type | Department | Care Team | Description | +--------+ + + + + | 08/21/ | Pharmacy | Specialty Pharmacy | | | | 2016 | Visit | Services [address] | | | | | | [address] | | | | | | [place], [place] | | | | | | [address] | | | | | | [phone] | | | +--------+ + + + [...] [address] | | | | | | [place], [place] | | | | | | [address] | | | | | | [phone] | | | | | | | | +--------+---------+ + + + documented as of this encounter Visit Diagnoses Not on filedocumented in this encounter"
--- OUTSIDE RECORDS SUMMARY | ~2019-05-17 | XMS | Encounter Summary ---
Demographics + + + | Address | [address] | | | [place] [address] | + + + | Home Phone [...] Providers + +------+ + | Care Technical Maintenance Specialist Name | Role | Phone | [...] [address] | | | | | | [place], [place] | | | | | | [address] | | | +--------+ + + + [...] Rd | | | | | | [place], [place] | | | | | | [address] | | | | | | [phone] | | | | | | | | +--------+---------+ + + + documented as of this encounter Visit Diagnoses Not on filedocumented in this encounter"
--- OUTSIDE RECORDS SUMMARY | ~2019-05-17 | XMS | Encounter Summary ---
Demographics + + + | Address | [address] | | | [place] [address] | + + + | Home Phone [...] Team Providers + +------+ + | Care Harbor Master Name | Role | Phone | + [...] marrow transplant | | | | at [facility] 3rd Floor | | ([facility]) | | | | [address] | | | | | | [place], | | | | | | [place] [address] | | | | | | [phone] | | | +--------+------+ + + + [...] Rd | | | | | | [place], [place] | | | | | | [address] | | | | | | [phone] | | | | | | | [...] | | | PDT | transplant ([facility]) | results section. | + +--------+ + + + | CBC, WITH | Routin | 12/07/2016 | S/P allogeneic | Results for this | | DIFFERENTIAL | e | 9:07 AM | bone marrow | procedure are in the | | | | PDT | transplant ([facility]) | results section. | + +--------+ + + + | COMPLETE METABOLIC | Routin | 12/07/2016 | S/P allogeneic | Results for this | | SET | e | 9:07 AM | bone marrow | procedure are in the | | (NA,K,CL,CO2,BUN,CRE | | PDT | transplant ([facility]) | results section. | | AT,GLUC,CA,AST,ALT,B | [...] | | | PDT | transplant ([facility]) | results section. | + +--------+ + + + | PHOSPHORUS, PLASMA | Routin | 12/07/2016 | S/P allogeneic | Results for this | | | e | 9:07 AM | bone marrow | procedure are in the | | | | PDT | transplant ([facility]) | results section. | + +--------+ + + + | BILIRUBIN DIRECT | Routin | 12/07/2016 | S/P allogeneic | Results for this | | | e | 9:07 AM | bone marrow | procedure are in the | | | | PDT | transplant ([facility]) | results section. | + +--------+ + + + | URIC ACID, PLASMA | Routin | 12/07/2016 | S/P allogeneic | Results for this | | | e | 9:07 AM | bone marrow | procedure are in the | | | | PDT | transplant ([facility]) | results section. | + +--------+ + + + | MAGNESIUM, PLASMA | Routin | 12/07/2016 | S/P allogeneic | Results for this | | | e | 9:07 AM | bone marrow | procedure are in the | | | | PDT | transplant ([facility]) | results section. | + +--------+ + + + | LDH TOTAL, PLASMA | Routin | 12/07/2016 | S/P allogeneic | Results for this | | | e | 9:07 AM | bone marrow | procedure are in the | | | | PDT | transplant ([facility]) | results section. | + +--------+ + [...] | + + + + + | [facility] | [address] | [place] [address] | | | INDRA SHARIF | [address] [...] | Test performed by immunoassay using [employer]ician i2000. . | [facility] | | [...] [facility] | [address] | [place] [address] | | | SERVICES, SPECIAL | PARK [...] | [facility] | [address] | [place] [address] | | | SERVICES, CORE | WALLY [...] [facility] | [address] | [place] [address] | | | SERVICES, CORE | PARK [...] | + + + + + | [facility] | [address] | [place] [address] | | | SERVICES, CORE | WALLY [...] [facility] | [address] | [place] [address] | | | SERVICES, CORE | PARK [...] [facility] | [address] | [place] [address] | | | SERVICES, CORE | PARK [...] [facility] | [address] | [place] [address] | | | SERVICES, CORE | [address] | | | + + + + + documented in this encounter Visit Diagnoses + + | Diagnosis | + + | 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
--- OUTSIDE RECORDS SUMMARY | ~2019-05-17 | XMS | Encounter Summary ---
Demographics + + + | Address | [address] | | | [place] [address] | + + + | Home Phone [...] Providers + +------+ + | Care Commercial Finance Manager Name | Role | Phone | [...] | | | [address] | [facility] | | | | | Mailcode: UHS13 | [place] [address] | | | | | [place] | | | | | | [address] [place], [place] | | | | | | [address] | | | | | | [phone] | | | +--------+ + + + [...] Rd | | | | | | [place], [place] | | | | | | [address] | | | | | | [phone] | | | | | | | [...] | SPECIAL | | | ION | [id number]: | | DIAGNOSTICS | | | | [...] 6.30 | | | | | | [id number] (L) | | | | | | | | | | | | 5.28 5.13 | | | | | | [id number]/FVC (%) | | | | | | [...] + + + + + + | GLZ36-25% | 4.64 | 5.09 L/sec | [facility] | | | PRE | | | SPECIAL | | | | | | DIAGNOSTICS | | | | | | - | | | | | | PULMONARY | | | | | | FUNCTION | | + + + + + + | [id number]% | 91 | % | [facility] | [...] [facility]ESSICA HARPER | [address] | [place], [place] | | | DIAGNOSTICS - | [address] | [address] | | | PULMONARY FUNCTION | | | | + + + + + documented in this encounter Visit Diagnoses + + | Diagnosis | + + | 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
--- OUTSIDE RECORDS SUMMARY | ~2019-05-17 | XMS | Encounter Summary ---
Demographics + + + | Address | [address] | | | [place] [address] | + + + | Home Phone [...] Team Providers + +------+ + | Care Saw Handle Assembler Name | Role | Phone | [...] | 2016 | | Hematologic | PA-C [address] | management | | | | Malignancies at [facility] | [address] | (Tacrolimus) | | | | [address] | [place], [place] | | | | | [address] Mailcode: | [address] | | | | | [facility] | [phone] | | | | | [place], | | | | | | [place] [address] | | | | | | [phone] | | | +--------+ + + + [...] | | | | | | [place] | | | | | | [address] | | | | | | [phone] | | | | | | | | +--------+---------+ + + + documented as of this encounter Visit Diagnoses Not on filedocumented in this encounter"
--- OUTSIDE RECORDS SUMMARY | ~2019-05-17 | XMS | Encounter Summary ---
Demographics + + + | Address | [address] | | | [place] [address] | + + + | Home Phone [...] Team Providers + +------+ + | Care Chain Pegger Name | Role | Phone | + [...] | +--------+ + + + + | 08/26/ | Hospital | [facility] | | | | 2016 | Encounter | Interventional | | | | | | [facility] | | | | | | [address] | | | | | | [place], | | | | | | [place] [address] | | | | | | [phone] | | | +--------+ + + + [...] Rd | | | | | | [place], [place] | | | | | | [address] | | | | | | [phone] | | | | | | | | +--------+---------+ + + + documented as of this encounter Procedures + +--------+ + + + | Procedure Name | Priori | Date/Time | Associated Diagnosis | Comments | | | ty | | | | + +--------+ + + + | CATH PLACEMENT | Routin | 08/26/2015 | | Results for this | | | e | 9:03 AM | | procedure are in the | | | | PST | | results section. | + +--------+ + + + | ORDERS OTHER | | 08/26/2015 | | Results for this | | | | 12:00 AM | | procedure are in the | | | | PST | | results section. | + +--------+ + + + documented in this encounter Results CATH PLACEMENT (08/26/2015 9:03 AM PST) + + + + + + | Component | Value | Ref Range | Performed | Pathologist | | | | | At | Signature | + + + + + + | CATH | Procedure: Trifusion | | | | | PLACEMENT | Catheter Placement | | | | | | Primary director of alumni relations: | | | | | | Aaron Lancaster MD | | | | | | Applied Mathematician attending | | | | | | director of alumni relations: Rita | | | | | | August Lackey | | | | | | Preoperative diagnosis: | | | | | | AML Postoperative | | | | | | [...] 3. | | | | | | Insertion of 12 Ukrainian | | | | | | 23cm tip-to-cuff triple | | | | | | lumen Trifusioncatheter | | | | | | into the cavoatrial | | | | | | junction Indications: | | | | | | Requirement for venous | | | | | | access for pheresis | | | | | | /dialysis Procedure: The | | | | | | patient, procedure, and | | | | | | allergies were | | | | | | confirmed in the | | | | [...] | | | | | | 14 Ukrainian peel away | | | | | [...] | | | | | The 12 Ukrainian | | | | | | triplelumen Trifusion | | | | | | catheter was then | | | | | | positioned with its tip | | | | | | at the | | | | | | cavo-atrialjunction with | | | | | | fluoroscopy. The | | | | | | catheter was flushed. | | | | | | The catheter was | | | | | | suturedin place with | | | | | | nylon suture at the skin | | | | | | exit site. A dry | | | | | | sterile dressing | | | | | | wasapplied. Digital | | | | | | radiograph was obtained | | | | | | at the termination of | | | | | | the procedure. Total | | | | | | fluoroscopic time: 0.9 | | | | | | minTotal contrast: 0 | | | | | | ml Findings: There is a | | | | | | patent right internal | | | | | | jugular vein. The | | | | | | access needle | | | | | | wasvisualized in the | | | | | | vein. A 12 Ukrainian triple | | | | | | lumen Trifusion | | | | | | catheter was placedwith | | | | | | its tip at the cavo- | | | | | | atrial junction in | | | | | | tunneled fashion. | | | | | | Impression: 1. Patent | | | | | | right internal jugular | | | | | | vein. 2. Placement of | | | | | | 12 Ukrainian triple lumen | | | | | | Trifusion 23 cm | | | | | | tip-to-cuff catheter | | | | | | intunneled fashion via | | | | | | right [...] | | | | | | Radiologists: RITA | | | | | | BHAVESH LACKEYuthor: | | | | | | RITA LACKYE MD | | | | | | [...] | | | | | signed / RITA | | | | | | DARYA 08/27/2015 | | | | | | 14:15 PM | | | | + + + + + + + + | Specimen | + + | | + + + +---------+ + + | Performing | Address | City/State/Zipcode | Phone Number | | Organization | | | | + +---------+ + + | [facility] DEPARTMENT OF | | | | | RADIOLOGY | | | | + +---------+ + + ORDERS OTHER (08/26/2015 12:00 AM PST) + + + | Narrative | Performed At | + + + | | | + + + documented in this encounter Visit Diagnoses Not on filedocumented in this encounter"
--- OUTSIDE RECORDS SUMMARY | ~2019-05-17 | XMS | Encounter Summary ---
Demographics + + + | Address | [address] | | | [place] [address] | + + + | Home Phone [...] + +------+ + | Care Sheet Metal Duct Worker Supervisor Name | Role | Phone | [...] [address] | | | | | [place] | | [address] | | | | | [address] | | [address] [place], | | | | | INJECTION, 1 | | [place] | | | | | [place] | | [address] | | | | | CHM,IV | | Phone: | | | | | INFSN,1 HR | | [phone] | | | | | [place] CHM,IV | | Fax: | | | | | INFSN,ADDL | | [phone] | | | | | HR | [...] | (Decitabine) | | | | [address] | | | | | | [place] Mailcode: | | | | | | [facility] [address] | | | | | | [place], | | | | | | [place] [address] | | | | | | [phone] | | | +--------+ + + + [...] Rd | | | | | | [place], [place] | | | | | | [address] | | | | | | [phone] | | | | | | | [...] the | | | | PST | ([facility]) | results section. | + +--------+ + + + | MANUAL DIFFERENTIAL | Routin | 07/21/2015 | Acute myeloid | Results for this | | | e | 3:43 PM | leukemia (AML), M4 | procedure are in the | | | | PST | ([facility]) | results section. | + +--------+ + + + | CBC, WITH | Urgent | 07/21/2015 | Acute myeloid | Results for this | | DIFFERENTIAL | | 3:43 PM | leukemia (AML), M4 | procedure are in the | | | | PST | ([facility]) | results section. | + +--------+ + + + | CMP, POC (BMP+LFT) | Routin | 07/21/2015 | Acute myeloid | Results for this | | | e | 3:38 PM | leukemia (AML), M4 | procedure are in the | | | | PST | ([facility]) | results section. | + +--------+ + + + | ANTIBODY SCREEN | Routin | 07/21/2015 | Acute myeloid | Results for this | | | e | 3:19 PM | leukemia (AML), M4 | procedure are in the | | | | PST | ([facility]) | results section. | + +--------+ + + + | TYPE AND SCREEN | Routin | 07/21/2015 | Acute myeloid | Results for this | | | e | 3:19 PM | leukemia (AML), M4 | procedure are in the | | | | PST | ([facility]) | results section. | + +--------+ + + + | ABO & RH TYPE | Routin | 07/21/2015 | Acute myeloid | Results for this | | | e | 3:19 PM | leukemia (AML), M4 | procedure are in the | | | | PST | ([facility]) | results section. | + +--------+ + + + | LDH TOTAL, PLASMA | Routin | 07/21/2015 | Acute myeloid | Results for this | | | e | 3:19 PM | leukemia (AML), M4 | procedure are in the | | | | PST | ([facility]) | results section. [...] + + | [facility] | [address] | [place] [address] | | | SERVICES, CORE | PARK [...] [facility] | [address] | [place] [address] | | | SERVICES, CORE | [address] | | | + + + + + CMP METABOL,POC (07/21/2015 3:38 PM PST) + +---------+ + + + | Component | Value | Ref Range | Performed | Pathologist | | | | | At | Signature | + +---------+ + + + | SODIUM, POC | 139 | 134 - 143 | [facility] - | | | | | mmol/L [...] S[facility] | [address] | [place], [place] | | | [facility] POINT OF CARE | [address] | [address] | | | TESTS | | | [...] [facility] | [address] | [place] [address] | | | SERVICES, | [address] [...] | + + + + + | [facility] | [address] | [place] [address] | | | SERVICES, | [address] [...] [facility] | [address] | [place] [address] | | | SERVICES, CORE | PARK [...]
--- OUTSIDE RECORDS SUMMARY | ~2019-05-17 | XMS | Encounter Summary ---
Demographics + + + | Address | [address] | | | [place] [address] | + + + | Home Phone [...] Team Providers + +------+ + | Care Recording Clerk Name | Role | Phone | [...] | Required | | versus host | [address] | ,PhD 8856 | | | | | disease) | [address] | [address] | | | | | ([facility]) | [address] | [address] | | | | | Procedures | [place], [place] | [place], [place] | | | | | CONSULT TO | [address] | [address] | | | | | DERM & DERM | Phone: | Phone: | | | | | SURGERY | [phone] | [phone] | | | | | | Fax: | Fax: | | | | | | [phone] | [phone] | +--------+ + + + + + [...] | | | | | | | [address] | | | | | | | [address] | | | | | | | [place], | | | | | | | [place] | | | | | | | [address] | | | | | | | Phone: | | | | | | | [phone] | | | | | | | Fax: | | | | | | | [phone] | +--------+--------+ + + + + Encounter Details +--------+---------+ + + + | Date | Type | Department | Care Team | Description | +--------+---------+ + + + | 02/06/ | Office | Center for | Yari Garcia MD | 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 Please schedule lab, infusion and an office visit with [facility] for next week. You will start cycle 5 on February 20, that same week you will get a bone marrow biopsy, ch est xray and PFT (lung function test) Those appointments will be scheduled in the next day or two. Check out at the desk interviewer today and make your next appointments. You can also call the [employer] at [phone]. 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 He was evaluated at [facility] ED on 06/[address] angiogram negative [...] myelomonocytic leukemia. He was referred to [facility] for further evaluation and man agement of his newly dx'd AML. Pt was admitted to [facility] on 05/26/15. Peripheral blood was [...] CD34, variable CD56, variable CD117, and dim FA740-gkjkh mickey; promonocyte immunophenotype (70% by flow): CD11b, [...] that occurred on his return home to [facility]. He is frustrated by the duration of [...] AML. [facility] showed a hypocellular marrow (patchy [...] marrow studies after c6 of azacitidine 2. 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 Presented to ER locally in [place] 02/04/16 with progressive itchy rash. 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
--- OUTSIDE RECORDS SUMMARY | ~2019-05-17 | XMS | Encounter Summary ---
Demographics + + + | Address | [address] | | | [place] [address] | + + + | Home Phone [...] Providers + +------+ + | Care Label Machine Operator Name | Role | Phone [...] | | | | bone of | [facility] | [facility] | | | | | right hip | Rd | Rd [place], | | | | | ([facility]) | [place], [place] | [place] | | | | | Unspecified | [address] | [address] | | | | | open wound, | Phone: | Phone: | | | | | right hip, | [phone] | [phone] | | | | | initial | Fax: | Fax: | | | | | encounter | [phone] | [phone] | | | | | Procedures | | | | | | | REQUEST TO | | | | | | | SURGERY | | | | | | | WAGE AND SALARY SPECIALIST | | | | | | | DE TOTAL HIP | | | | | | | | | | | | | | ARTHROPLASTY | | | | | | | DE NEG | | | | | | [...] | | | | | Procedures | [facility] | [facility] | | | | | CONSULT TO | Rd | Rd [place], | | | | | ORTHOPEDICS | [place], [place] | [place] | | | | | AND | [address] | [address] | | | | | REHABILITATI | Phone: | Phone: | | | | | ON | [phone] | [phone] | | | | | | Fax: | Fax: | | | | | | [phone] | [phone] | +--------+--------+ + + + + Encounter Details +--------+---------+ + + + | Date | Type | Department | Care Team | Description | +--------+---------+ + + + | 04/02/ | Office | Orthopaedics at | Lobo Jeffers, | Arthralgia of hip, | | 2017 | Visit | [facility] [address] | [address] | unspecified | | | | [address] | [facility] [address] | laterality (Primary | | | | Mailcode: PV430 | [place], [place] | Dx); [facility] | | | | [facility] | [address] | necrosis of bone of | | | | [place], [place] | [phone] | right hip (HCC) | | | | [address] | | | | | | [phone] | | | +--------+---------+ + + + [...] 2018 | Visit | Malignancy | [address] [facility] | | | | | | [address] | | | | | | [place], [place] | | | | | | [address] | | | | | | [phone] | | | | | | | [...]
--- OUTSIDE RECORDS SUMMARY | ~2019-05-17 | XMS | Encounter Summary ---
Demographics + + + | Address | [address] | | | [place] [address] | + + + | Home Phone [...] Providers + +------+ + | Care Manager Manufacturing Name | Role | Phone | + [...] | | change | | | | [address] | | | | | | [place] Mailcode: | | | | | | [facility] | | | | | | [place], | | | | | | [place] [address] | | | | | | [phone] | | | +--------+ + + + [...] 2018 | Visit | Malignancy | [address] [facility] | | | | | | [address] | | | | | | [place], [place] | | | | | | [address] | | | | | | [phone] | | | | | | | [...] + + | [facility] | [address] | [place], [place] | | | RUTHIE CARTER OF KRISTA | [address] | [address] | | | TESTS | | | [...] SORTO | [address] | [place], [place] | | | [facility] POINT OF CARE | [address] | [address] | | | TESTS | | | [...] + + + + + | [facility] | [address] | [place] [address] | | | SERVICES, CORE | [address] [...] | | | characteristics determined by the [facility] | | | Molecular Diagnostic Center. It has not been cleared or approved by | | | the Food and Drug Administration. FDA approval is not required for | | | clinical use of this test, and therefore validation was done as | | | required under the requirements of the Clinical Laboratory Improvement | | | Act of 1988. The [facility] Molecular | | | Diagnostic Center is a fully licensed and/or accredited clinical | | | laboratory under CLIA, CAP, and the [facility]. | | + + + + + + + + | Performing | Address | City/State/Zipcode | Phone Number | | Organization | | | | + + + + + | [facility] | [address] | [place] [address] | | | DIAGNOSTIC | [address] [...]
--- OUTSIDE RECORDS SUMMARY | ~2019-05-17 | XMS | Encounter Summary ---
Demographics + + + | Address | [address] | | | [place] [address] | + + + | Home Phone [...] Providers + +------+ + | Care Gas Golf Cart Repairer Name | Role | Phone | [...] | | | | | achieved | [place], [place] | [facility] | | | | | remission | [address] | [place] | | | | | | Phone: | Pavilion | | | | | Procedures | [phone] | [facility] [place] | | | | | [place] EST | Fax: | [address] | | | | | PATIENT | [phone] | Phone: | | | | | LEVEL V | | [phone] | | | | | | | Fax: | | | | | | | [phone] | + +--------+ + + + + Encounter Details +--------+---------+ + + + | Date | Type | Department | Care Team | Description | +--------+---------+ + + + | 05/15/ | Office | Center for | Yari Garcia MD | Arrived | | 2019 | Visit | Hematologic | [address] | | | | | Malignancies at [facility] | [facility] [address] | | | | | [address] | [place], [place] | | | | | Mailcode: Center | [address] | | | | | for Health and | [phone] | | | | | [facility] [address] | | | | | | [facility] [place] | | | | | | [address] | | | | | | [phone] | | | +--------+---------+ + + + [...] + + + documented in this encounter Plan of Treatment [...] [place] | | | | | | [address] | | | | | | [phone] | | | | | | | | +--------+---------+ + + + documented as of this encounter Visit Diagnoses Not on filedocumented in this encounter"
--- OUTSIDE RECORDS SUMMARY | ~2019-05-17 | XMS | Encounter Summary ---
Demographics + + + | Address | [address] | | | [place] [address] | + + + | Home Phone [...] Team Providers + +------+ + | Care Room Service Waiter/Waitress Name | Role | Phone | + +------+ + | Pending Pcp Addition | PCP | Unavailable | + +------+ + Encounter Details +--------+ + + + + | Date | Type | Department | Care Team | Description | +--------+ + + + + | 03/14/ | Document-Sc | Health Information | Unknown . | | | 2015 | anned | Services [address] | | | | | | [address] | | | | | | Mailcode: OP17A | | | | | | [facility] | | | | | | [place], [place] | | | | | | [address] | | | | | | [phone] | | | +--------+ + + + [...] Rd | | | | | | [place], [place] | | | | | | [address] | | | | | | [phone] | | | | | | | | +--------+---------+ + + + documented as of this encounter Visit Diagnoses Not on filedocumented in this encounter"
--- OUTSIDE RECORDS SUMMARY | ~2019-05-17 | XMS | Encounter Summary ---
Demographics + + + | Address | [address] | | | [place] [address] | + + + | Home Phone [...] Providers + +------+ + | Care Special Education Para Professional Name | Role | Phone | + +------+ + | Zayda Hinton | PCP | | + +------+ + Encounter Details +--------+ + + + + | Date | Type | Department | Care Team | Description | +--------+ + + + + | 11/06/ | Pharmacy | Specialty Pharmacy | | | | 2016 | Visit | Services [address] | | | | | | [address] | | | | | | [place], [place] | | | | | | [address] | | | | | | [phone] | | | +--------+ + + + [...] [place] | | | | | | [address] | | | | | | [phone] | | | | | | | | +--------+---------+ + + + documented as of this encounter Visit Diagnoses Not on filedocumented in this encounter"
--- OUTSIDE RECORDS SUMMARY | ~2019-05-17 | XMS | Encounter Summary ---
Demographics + + + | Address | [address] | | | [place] [address] | + + + | Home Phone [...] Team Providers + +------+ + | Care Psychological Aide Name | Role | Phone | [...] | | | | | | [place], | | | | | | | [place] | | | | | | | [address] | | | | | | | Phone: | | | | | | | [phone] | | | | | | | Fax: | | | | | | | [phone] | +--------+--------+ + + + + Encounter Details +--------+---------+ + + + | Date | Type | Department | Care Team | Description | +--------+---------+ + + + | 02/15/ | Office | Center for | Aspen Cummins FNP | S/P allogeneic bone | | 2016 | Visit | Hematologic | [address] | marrow transplant | | | | Malignancies at | [address] | (HCC) (Primary Dx) | | | | [facility] | [place], [place] | | | | | [address] | [address] | | | | | Debi Burger Mailcode: | [phone] | | | | | [facility] | | | | | | [place], | | | | | | [place] [address] | | | | | | [phone] | | | +--------+---------+ + + + [...] + + + | Blood Pressure | 132/84 | 02/16/2016 1:15 PM | | | | | PDT | | + + + + + | Pulse | 93 | 02/16/2016 1:15 PM | | | | | PDT | | + + + + + | Temperature | 37.3 C (99.1 F) | 02/16/2016 1:15 PM | | | | | PDT | | + + + + + | Respiratory Rate | 18 | 02/16/2016 1:15 PM | | | | | PDT | | + + + + + | Oxygen Saturation | 98% | 02/16/2016 1:15 PM | | | | | PDT | | + + + + + | Inhaled Oxygen | - | - | | | Concentration | | | | + + + + + | Weight | 92.9 kg (204 lb 12.9 | 02/16/2016 1:15 PM | | | | oz) | PDT | | + + + + + | Height | - | - | | + + + + + | Body Mass Index | 26.01 | 01/25/2016 8:24 AM | | | | | PDT | | + + + + + documented in this encounter Progress Notes Aspen Cummins, [place] - 02/17/2016 5:44 PM PDT 02/16/2016 [facility] MD: Yari Garcia MD Primary Oncologist: Yari Garcia MD Diagnosis: AMML, 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 He was evaluated at [facility] ED on 06/[address] angiogram [...] CD34, variable CD56, variable CD117, and dim SA554-nebck mickey; promonocyte immunophenotype (70% by flow): CD11b, [...] durin g taper. He is currently day +173 s/p transplant, day 24, c4 of azacitidine and returns to clinic to day for scheduled follow-up. Interim History: Khurram was most recently evaluated in our [facility] clinic by Yari Garcia MD on 02/07/16. He is feeling well today. Energy is good, golfin g several times throughout the week and active with his family. Appetite is good. Minimal n ausea persists, usually very short-lived and decreasing with each cycle of azacitidine. Feel s he's had very minimal nausea this past cycle. Traveling to [place] this weekend; the [employer] is sponsoring a donor drive and a 5- and 10K race to benefit pt's family. He is look ing forward to his weekend. Rash has markedly improved with increase in steroids and topical cream. Not pruritic. Review of Systems Constitutional: Negative for fever, chills and malaise/fatigue. HENT: Negative for headaches, congestion and sore throat. Respiratory: Negative for cough and shortness of breath. Cardiovascular: Negative for chest pain and leg swelling. Gastrointestinal: Positive for nausea (as above, minimal and not requiring antiemetics). Ne gative for vomiting, abdominal pain and diarrhea. Genitourinary: Negative for dysuria. Musculoskeletal: Negative for myalgias, joint pain and falls. Skin: Positive for rash (fading). Negative for itching. Neurological: Negative for dizziness, [...] for dresssing change per pt. Filed Vitals: 02/16/2016 1:15 PM Weight: 92.9 kg (204 lb 12.9 oz) BP: 132/84 Pulse: 93 Temp: 37.3 C (99.1 F) TempSrc: Oral Resp: 18 SpO2: 98% PainSc: 0 - Zero BMI: 26.01 kg/(m^2) Physical Exam Constitutional: He is well-developed, [...] is warm and dry. Rash (very faint hyperpigmented rash to chest, upper back, BUE, bilat thighs) noted. Psychiatric: Mood and affect normal. Vitals reviewed. CVC: Trifusion intact to R ant chest wall without erythema, induration Lab Results Component Value Date WBC 10.0 02/16/2016 HB 11.0 02/16/2016 HCT 33.2 02/16/2016 PLT 134 02/16/2016 MCV 106.4 02/16/2016 RDW 60.3 11/22/2015 Lab Results Component Value Date BICARB 27 02/16/2016 TBILI 0.4 02/16/2016 CA 9.3 02/16/2016 CL 99 02/16/2016 CR 1.0 02/16/2016 GLU 142* 02/16/2016 AP 110 02/16/2016 TP 6.7 02/16/2016 BUN 11 02/16/2016 ALB 3.4* 02/16/2016 AST 99* 02/16/2016 NA 135 02/16/2016 K 3.9 02/16/2016 ALT 244* 02/16/2016 Assessment/Plan: 1. Hematology: Khurram Kelly is currently day +173 s/p tBuCy-conditioned unrel ated donor PBSC transplant [...] maintenance azacitidine on 11/01/15, currently c4, day 2 4. Peripheral blood counts uptrending after most recent cycle of therapy. No blood products are required today, no evidence of disease by peripheral smear. --> continue CBC q1 week during initial 1-2 weeks of each cycle --> begin c5 azacitidine [32 mg/m2 IV daily x 5 days] on 02/21/16 --> plan to complete 6 cycles of post-transplant azacitidine due to active disease at time of transplant --> repeat marrow studies after c6 of azacitidine 2. 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 Prednisone was increased back to 20 mg po daily. Skin bx 02/10/16 showed vaculolar inte rface mixed dermatitis with eosinophils. DDx included GvHD and drug hypersensitivity reactio n. Rash markedly improved with increased dose prednisone. No other s/s active GvHD at this time. --> continue prednisone 20 mg po daily --> hold PUVA for now --> continue tacrolimus 0.5 mg bid --> continue oral non-absorbables 3. Infectious Disease: Afebrile without localizing s/s infection. He continues prophylactic acyclovir and monthly pentamidine. Completed a treatment course of valganciclovir for CMV r eactivation on 12/16/15. His most recent CMV PCR on 02/09/16 remains undetected. Immune reconsti tution panel collected 11/22/15 showed normal total T cells with increased CD8+ T cell subset s, normal total NK cells, decreased B cells with decreased margarita B cells and minimal immune activation with CD4 count 385. Post transplant vaccines currently on hold due to azacitidin e maintenance therapy. --> continue acyclovir, monthly pentamidine (due 02/20/16) --> consider transition to bactrim prophylaxis once peripheral blood counts stabilize --> due to CMV reactivation prior to day +100, monitor PCRs q1-2 weeks through day +270 Lab Results Component Value Date CMVQUANTPCR Undetected 02/16/2016 CMVQUANTPCR Undetected 02/07/2016 CMVQUANTPCR Undetected 01/31/2016 CMVQUANTPCR Undetected 01/24/2016 4. Fluid, Electrolyte and Nutrition: Appetite remains good, eating well with adequate po fl uid intake. Continues with intermittent short-lived nausea, improving over time. Does not re quire antiemetics. His electrolytes are reviewed; hypomagnesemic. --> replete Mg+ per supportive care orders for hypomagnesemia --> continue a well balanced diet --> maintain hydration --> restart po Mg+Pro 1 tab po BID; hold for loose stools 5. Cardiovascular: Pretransplant TTE completed 08/10/15 showed a LVEF of 55-60%. 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 --> continue current meds --> anticipate HTN will improve as tacrolimus tapers 6. Follow up --> scheduled to begin c5 azacitidine on 02/21/16; daily dosing x 5 days --> RTC to f/u with me on 02/23/16, sooner prn [facility] [address] [facility] Mailcode: [place] [address] documented in this enc ounter [...] | 2019 | Visit | Malignancy | [address] [place] [address] | | | | | | [facility] | | | | | | [place], [place] | | | | | | [address] | | | | | | [phone] | | | | | | | | +--------+---------+ + + + documented as of this encounter Visit Diagnoses + + | Diagnosis | + + | 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
--- OUTSIDE RECORDS SUMMARY | ~2019-05-17 | XMS | Encounter Summary ---
Demographics + + + | Address | [address] | | | [place] [address] | + + + | Home Phone [...] Team Providers + +------+ + | Care Responder Name | Role | Phone | + +------+ + | Zayda Hinton | PCP | | + +------+ + Encounter Details +--------+ + + + + | Date | Type | Department | Care Team | Description | +--------+ + + + + | 07/16/ | Pharmacy | Specialty Pharmacy | | | | 2016 | Visit | Services [address] | | | | | | [address] | | | | | | [place], [place] | | | | | | [address] | | | | | | [phone] | | | +--------+ + + + [...] 2019 | Visit | Malignancy | [address] [facility] | | | | | | [address] | | | | | | [place], [place] | | | | | | [address] | | | | | | [phone] | | | | | | | | +--------+---------+ + + + documented as of this encounter Visit Diagnoses Not on filedocumented in this encounter"
--- OUTSIDE RECORDS SUMMARY | ~2019-05-17 | XMS | Encounter Summary ---
Demographics + + + | Address | [address] | | | [place] [address] | + + + | Home Phone [...] + +------+ + | Care Front Desk Supervisor Name | Role | Phone | + +------+ + | Zayda Hinton | PCP | | + +------+ + Encounter Details +--------+ + + + + | Date | Type | Department | Care Team | Description | +--------+ + + + + | 03/09/ | Pharmacy | Specialty Pharmacy | | | | 2015 | Visit | Services [address] | | | | | | [address] | | | | | | [place], [place] | | | | | | [address] | | | | | | [phone] | | | +--------+ + + + [...] | Visit | Malignancy | [address] [facility] | | | | | | [address] | | | | | | [place], [place] | | | | | | [address] | | | | | | [phone] | | | | | | | | +--------+---------+ + + + documented as of this encounter Visit Diagnoses Not on filedocumented in this encounter"
--- OUTSIDE RECORDS SUMMARY | ~2019-05-17 | XMS | Encounter Summary ---
Demographics + + + | Address | [address] | | | [place] [address] | + + + | Home Phone [...] Team Providers + +------+ + | Care Cloud Operations Engineer Name | Role | Phone | [...] | | | | | achieved | [facility] [place] | [id number] | | | | | remission | [address] | [place] | | | | | | Phone: | Pavilion | | | | | Procedures | [phone] | [place], [place] | | | | | Post BMT | Fax: | [address] | | | | | Auth to | [phone] | Phone: | | | | | included | | [phone] | | | | | facility, | | Fax: | | | | | diagnostics, | | [phone] | | | | | office | [...] Follow-up visit | | | | [facility] [place] | | (JULIANA Jimenez) | | | | [place], | | | | | | [place] [address] | | | | | | [phone] | | | +--------+ + + + [...] scheduled for an appointment tomorrow at the [facility]. Patient has rash to flank area [...] Hospital | | | | | | [facility] | | | | | | [place], [place] | | | | | | [address] | | | | | | [phone] | | | | | | | [...] | | | PST | ([facility])- primary | results section. 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 | | | | | | ([facility]) | | + +--------+ + + + | BMP + MAG, POC CHM | Routin | 09/14/2015 | Acute myeloid | Results for this | | | e | 1:14 PM | leukemia (AML), M4 | procedure are in the | | | | PST | ([facility])- primary | results section. | | [...] | | | PST | ([facility])- primary | | | | | | induction failure | | + +--------+ + + + | TREATMENT PARAMETERS | Routin | 09/14/2015 | Acute myeloid | | | #2 - BEACON | e | 12:43 PM | leukemia (AML), M4 | | | | | PST | ([facility])- primary | | | | | | induction failure | | + +--------+ + + + | TREATMENT PARAMETERS | Routin | 09/14/2015 | Acute myeloid | | | #2 - BEACON | e | 12:43 PM | leukemia (AML), M4 | | | | | PST | ([facility])- primary | | | | | | induction failure | | + +--------+ + + + | TREATMENT PARAMETERS | Routin | 09/14/2015 | Acute myeloid | | | #2 - BEACON | e | 12:43 PM | leukemia (AML), M4 | | | | | PST | ([facility])- primary | | | | | | induction failure | | + +--------+ + + + | TREATMENT PARAMETERS | Routin | 09/14/2015 | Acute myeloid | | | #2 - BEACON | e | 12:43 PM | leukemia (AML), M4 | | | | | PST | ([facility])- primary | | | | | | induction failure | | + +--------+ + + + | NURSING | Routin | 09/14/2015 | Acute myeloid | | | COMMUNICATION #3 - | e | 12:43 PM | leukemia (AML), M4 | | | BEACON | | PST | ([facility])- primary | | | | | [...] | | | PST | ([facility])- primary | | | | | | induction failure | | + +--------+ + + + | LIVER SET | Urgent | 09/14/2015 | Acute myeloid | Results for this | | (AST,ALT,BILI | | 12:43 PM | leukemia (AML), M4 | procedure are in the | | TOTAL,BILI | | PST | ([facility])- primary | results section. | | [...] | | | PST | ([facility])- primary | results section. | | [...] - [place] | [address] | [place], [place] | | | [facility]IE [facility] [address] | [address] | [address] | | | TESTS | | | [...] [place] | [address] | [place], [place] | | | RUTHIE CARTER OF KRISTA | [address] | [address] | | | TESTS | | | [...] [facility] | [address] | [place] [address] | | | SERVICES, CORE | PARK [...] [facility] | [address] | [place] [address] | | | SERVICES, CORE | WALLY [...]
--- OUTSIDE RECORDS SUMMARY | ~2019-05-17 | XMS | Encounter Summary ---
Demographics + + + | Address | [address] | | | [place] [address] | + + + | Home Phone [...] Providers + +------+ + | Care Motor Vehicle Lecturer Name | Role | Phone | + +------+ + | Zayda Hinton | PCP | | + +------+ + Encounter Details +--------+ + + + + | Date | Type | Department | Care Team | Description | +--------+ + + + + | 02/14/ | Pharmacy | Specialty Pharmacy | | | | 2015 | Visit | Services [address] | | | | | | [address] | | | | | | [place], [place] | | | | | | [address] | | | | | | [phone] | | | +--------+ + + + [...] Rd | | | | | | [place], [place] | | | | | | [address] | | | | | | [phone] | | | | | | | | +--------+---------+ + + + documented as of this encounter Visit Diagnoses Not on filedocumented in this encounter"
--- OUTSIDE RECORDS SUMMARY | ~2019-05-17 | XMS | Encounter Summary ---
Demographics + + + | Address | [address] | | | [place] [address] | + + + | Home Phone [...] Providers + +------+ + | Care Concrete Analyst Name | Role | Phone | [...] | | | | | remission | [address] | [place] | | | | | | Phone: | Pavilion | | | | | Procedures | [phone] | [place], [place] | | | | | Post BMT | Fax: | [address] | | | | | Auth to | [phone] | Phone: | | | | | included | | [phone] | | | | | facility, | | Fax: | | | | | diagnostics, | | [phone] | | | | | office | [...] | | | | | | [facility] [place] | | | | | | Pavilion [place], | | | | | | [place] [address] | | | | | | [phone] | | | +--------+ + + + [...] | Visit | Malignancy | [address] [facility] | | | | | | [address] | | | | | | [place], [place] | | | | | | [address] | | | | | | [phone] | | | | | | | [...] | | | | | | dose, [facility] 11/23/16 at 1030 | | | [...] PDT | | | | | dose, [facility] 11/23/16 at 1030 | | | [...]
--- OUTSIDE RECORDS SUMMARY | ~2019-05-17 | XMS | Encounter Summary ---
Demographics + + + | Address | [address] | | | [place] [address] | + + + | Home Phone [...] Team Providers + +------+ + | Care Slitter Operator Name | Role | Phone | [...] | | | | | Malignancies at [facility] | [address] | | | | | [address] | [place], [place] | | | | | [address] Mailcode: | [address] | | | | | [facility] [address] | [phone] | | | | | [place], | | | | | | [place] [address] | | | | | | [phone] | | | +--------+--------+ + + + [...] Rd | | | | | | [place] | | | | | | [address] | | | | | | [phone] | | | | | | | | +--------+---------+ + + + documented as of this encounter Visit Diagnoses Not on filedocumented in this encounter"
--- OUTSIDE RECORDS SUMMARY | ~2019-05-17 | XMS | Encounter Summary ---
Demographics + + + | Address | [address] | | | [place] [address] | + + + | Home Phone [...] Team Providers + +------+ + | Care Resistor Coater Name | Role | Phone | [...] TOTAL HIP | | 2019 | | [facility] | MD [address] | ARTHROPLASTY | | | | Admitting Desk | [address] | | | | | Located on the 9 | [place], [place] | | | | | floor [address] | [address] | | | | | [facility] | [phone] | | | | | [place], [place] | | | | | | [address] | | | +--------+---------+ + + + [...] different f rom the original. [facility] DISCHARGE SUMMARY & INTERDISCIPLINARY INSTRUCTIONS Patient: Khurram Kelly CSN: [id number] Admission Date: 12/19/2018 Discharge Date: 12/20/2018 Attending Physician: Lobo Jeffers MD PCP: JULIANA Nova Service: [facility] Orthopaedics & Rehabilitation Diagnoses [...] they suspect your wound is infected. Call [facility] Orthopedics first at [phone]. Activity Weight bear as tolerated on both lower extremities. Restrictions: Posterior hip precautions on operative side (no hip flexion >90 degrees, no c rossing your legs, no turning your foot towards the middle of the body (internal rotation). Condition on Discharge Stable Follow-Up Appointments ORTHOPEDICS OUTPATIENT CLINIC: Future Appointments Provider Department Dept Phone Center 12/30/2018 9:35 AM Janette Das Orthopaedics at [facility] [phone] Orthopedics Follow up in 2 weeks (or as previously scheduled). Call [phone] to confirm or schedule this appointment. PCP: [...] Combine with 5 mg tabs Indications: GvHD [facility] Orthopaedic Service Pain Policy [...] administration instructions. - Call Orthopedic Clinic at [phone] if any persistent, localized swelling that does [...] and ask for the orthopaedic surgery resident foundation relations manager. Additional Post-Op Instructions / What to [...] feel that you will need more, call [phone] during business hours in order to get [...] [employer] Department of Orthopaedics & Rehabilitation [address] [place] [address] Mail Code: OP31 [facility] [id number] [email or web address] Pager: [phone] documented in this en counter Medications at [...] - 12/20/2018 10:57 AM PDT [facility]IL[facility]ATION ORTHOPEDIC ONCOLOGY [...] 12/30/2018 9:35 AM Janette Das Orthopaedics at [facility] 01/20/2019 10:20 AM [facility] Arrive at: 10th Floor Hematology/Medical Oncology 01/21/2019 9:20 AM Sabrina Beaz [facility] The actual length of your visit is determined by services such as dilation, tests and procedures. 01/21/2019 3:00 PM Aud Flex Staff Otolaryngology Audiology Services at [facility] 01/21/2019 3:00 PM AUDIO REDD 2 Otolaryngology Audiology Services at [facility] 01/21/2019 3:30 PM Janette Manning Otolaryngology Otology Services at [facility] Subjective: Interval Hx: Feels well, no complaints [...] 2018 | Visit | Malignancy | [address] [facility] | | | | | | [address] | | | | | | [place], [place] | | | | | | [address] | | | | | | [phone] | | | | | | | [...] [facility] | [address] | [place] [address] | | | SERVICES, CORE | PARK [...] | | | LABORATORY | | | SUDANESE | | | SERVICES, | | | [...] 6 | 4 - 11 mmol/L | [facility] | | | | | | LABORATORY [...] + + + + + | [facility] Ta[facility] | [address] [facility] | [place] [address] | | | INDRA SHARIF | WALLY [...] | | Attending Surgeon: Lobo Jeffers MD Industrial Conveyor Belt Repairer(s): Jhony | | Mirza . Jeramie Roper [...] | | polyethylene liner.Indication: Patient is a -efgs-dtu male who has a history | | [...] | | repaired with 0 Vicryl in bxeeqq-lz-xoqsw fashion. The external rotators were not | [...] | MDJBH/MODLDD: 12/19/2018 11:05:02DT: 12/19/2018 11:52:31Job #: [id number] | |gluteal fibers were returned to their [...] |LIZZY/JOE | | | | | | /[id number] | + + CAPILLARY BLOOD GLUCOSE (NO [...] [facility] | [address] | [place], [place] | | | RUTHIE CARTER OF CARE | [address] | [address] | | | TESTS | | | [...] hip arthroplasty Surgeon: | | | Zeyad Industrial Conveyor Belt Repairer:Robert Murray Anesthesia:spinal with | | | general [...] - [place] | [address] | [place], [place] | | | [facility] | [address] | [address] | | | TESTS | | | [...]
--- OUTSIDE RECORDS SUMMARY | ~2019-05-17 | XMS | Encounter Summary ---
Demographics + + + | Address | [address] | | | [place] [address] | + + + | Home Phone [...] Providers + +------+ + | Care Public Aid Eligibility Assistant Name | Role | Phone | [...] Description | +--------+--------+ + + + | 07/17/ | Refill | Center for | Yari Garcia MD | Refill Request | | 2017 | | Hematologic | [address] | | | | | Malignancies at | [address] | | | | | [place] | [place], [place] | | | | | [address] | [address] | | | | | Debi Burger Mailcode: | [phone] | | | | | [facility] | | | | | | [place], | | | | | | [place] [address] | | | | | | [phone] | | | +--------+--------+ + + + [...] Rd | | | | | | [place] | | | | | | [address] | | | | | | [phone] | | | | | | | | +--------+---------+ + + + documented as of this encounter Visit Diagnoses Not on filedocumented in this encounter"
--- OUTSIDE RECORDS SUMMARY | ~2019-05-17 | XMS | Encounter Summary ---
Demographics + + + | Address | [address] | | | [place] [address] | + + + | Home Phone [...] Team Providers + +------+ + | Care Videotape Recording Engineer Name | Role | Phone | [...] | | | | | Malignancies at [facility] [place] | [address] | | | | | [address] | [facility], [place] | | | | | Debi Burger Mailcode: | [address] | | | | | [address] | [phone] | | | | | [place], | | | | | | [place] [address] | | | | | | [phone] | | | +--------+ + + + [...] Rd | | | | | | [place], [place] | | | | | | [address] | | | | | | [phone] | | | | | | | | +--------+---------+ + + + documented as of this encounter Visit Diagnoses Not on filedocumented in this encounter"
--- OUTSIDE RECORDS SUMMARY | ~2019-05-17 | XMS | Encounter Summary ---
Demographics + + + | Address | [address] | | | [place] [address] | + + + | Home Phone [...] Team Providers + +------+ + | Care Refrigerating Engineer Head Name | Role | Phone | [...] | | | | | | [place], | | | | | | | [place] | | | | | | | [address] | | | | | | | Phone: | | | | | | | [phone] | | | | | | | Fax: | | | | | | | [phone] | +--------+--------+ + + + + Encounter [...] (HCC) (Primary Dx) | | | | [address] | [place], [place] | | | | | [address] | [address] | | | | | Debi Burger Mailcode: | [phone] | | | | | [facility] | | | | | | [place], | | | | | | [place] [address] | | | | | | [phone] | | | +--------+---------+ + + + [...] FNP - 12/16/2015 7:30 AM PDT 12/16/2015 [facility] Primary CHM MD: Yari Garcia MD Primary Oncologist: Yari Garcia MD Diagnosis: AMML, 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 He was evaluated at [facility]' ED on 06/[address] angiogram negative [...] CD34, variable CD56, variable CD117, and dim [id number]-tqrcc mickey; promonocyte immunophenotype (70% by flow): CD11b, [...] mg/m2 IV daily x 5 days] 2. Hyrgi-rm-Scyi Disease: Skin bx due to mild rash [...] FOR HEMATOLOGIC MALIGNANCIES AT [facility] [address] Mailcode: [place] [address] documented in this enc ounter [...] | 2018 | Visit | Malignancy | [facility] | | | | | | [facility] | | | | | | [place], [place] | | | | | | [address] | | | | | | [phone] | | | | | | | | +--------+---------+ + + + documented as of this encounter Visit Diagnoses + + | Diagnosis | + + | 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
--- OUTSIDE RECORDS SUMMARY | ~2019-05-17 | XMS | Encounter Summary ---
Demographics + + + | Address | [address] | | | [place] [address] | + + + | Home Phone [...] Team Providers + +------+ + | Care Jeweler Apprentice Name | Role | Phone | [...] [address] | | | | | | [place], [place] | | | | | | [address] | | | | | | [phone] | | | +--------+ + + + [...] [place] | | | | | | [address] | | | | | | [phone] | | | | | | | | +--------+---------+ + + + documented as of this encounter Visit Diagnoses Not on filedocumented in this encounter"
--- OUTSIDE RECORDS SUMMARY | ~2019-05-17 | XMS | Encounter Summary ---
Demographics + + + | Address | [address] | | | [place] [address] | + + + | Home Phone [...] Providers + +------+ + | Care Door Furring Installer Name | Role | Phone | [...] | | | | | | | [address] | | | | | | | [address] | | | | | | | [place], | | | | | | | [place] | | | | | | | [address] | | | | | | | Phone: | | | | | | | [phone] | | | | | | | Fax: | | | | | | | [phone] | +--------+--------+ + + + + Encounter [...] | | | | Christian Barry | [place], [place] | | | | | [address] | [address] | | | | | De[address] Burger Mailcode: | [phone] | | | | | [facility] | | | | | | [place], | | | | | | [place] [address] | | | | | | [phone] | | | +--------+---------+ + + + [...] bone marrow biopsy. Check out at the waterfront director today and make your next appointments. You can also call the flaco whitehead at [phone]. 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 He was evaluated at [facility]' ED on 06/[address] angiogram negative [...] acute myelomonocytic leukemia. He was referred to [facility] for further evaluation and man agement of his newly dx'd AML. Pt was admitted to [facility] on 05/26/15. Peripheral blood was sent [...] CD34, variable CD56, variable CD117, and dim [id number] mickey; promonocyte immunophenotype (70% by flow): CD11b, [...] anxiolytics. He is very nervous about leaving [place] as he remains worried about his overall [...] is no erythe ma. No pallor. Clinical Roll Or Tape Edge Machine Operator on 03/06/2016 Component Date Value WBC POC [...] AML. His most recent marrow studies comple [facility] 11/22/15 showed a hypocellular marrow [...] --> repeat chimerism at that time 2. Uotjx-hj-Jsdm Disease: Skin bx due to mild rash [...] of post-tx azacytidine Yari Garcia MD, MS Flame Annealing Machine Setterlinesperson [facility] [address] [place] [address] documented in this enc ounter Plan of [...] 2019 | Visit | Malignancy | [address] [facility] | | | | | | [address] | | | | | | [place], [place] | | | | | | [address] | | | | | | [phone] | | | | | | | | +--------+---------+ + + + documented as of this encounter Visit Diagnoses + + | Diagnosis | + + | 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
--- OUTSIDE RECORDS SUMMARY | ~2019-05-17 | XMS | Encounter Summary ---
Demographics + + + | Address | [address] | | | [place] [address] | + + + | Home Phone [...] Team Providers + +------+ + | Care V Groove Cutter Name | Role | Phone | + +------+ + | Zayda Hinton | PCP | | + +------+ + Encounter Details +--------+ + + + + | Date | Type | Department | Care Team | Description | +--------+ + + + + | 11/18/ | Hospital | Radiology/Imaging | Lobo Jeffers, | | | 2019 | Encounter | Lab at [facility] [address] | [address] | | | | | Deshaun Jewell Mailcode: | [address] | | | | | [place] for [facility] | [facility] [place] | | | | | angela [place], | [address] | | | | | [facility] | [phone] | | | | | Floor [place], [place] | | | | | | [address] | | | | | | [phone] | | | +--------+ + + + [...] 2018 | Visit | Malignancy | [address] [facility] | | | | | | [address] | | | | | | [place], [place] | | | | | | [address] | | | | | | [phone] | | | | | | | [...]
--- OUTSIDE RECORDS SUMMARY | ~2019-05-17 | XMS | Encounter Summary ---
Demographics + + + | Address | [address] | | | [place] [address] | + + + | Home Phone [...] Providers + +------+ + | Care Assembler Wire Mesh Gate Name | Role | Phone | + [...] | | | | | | [place], | | | | | | | [place] | | | | | | | [address] | | | | | | | Phone: | | | | | | | [phone] | | | | | | | Fax: | | | | | | | [phone] | +--------+--------+ + + + + Encounter [...] (HCC) (Primary Dx) | | | | [facility] | [place], [place] | | | | | [address] | [address] | | | | | De[address] Burger Mailcode: | [phone] | | | | | [address] | | | | | | [place], | | | | | | [place] [address] | | | | | | [phone] | | | +--------+---------+ + + + [...] of sun exposure as this can cause eigsk-fgtchn-mipw disease. Wear a hat, sungla sses, and [...] MM URD (DPB1 permissive antigen mismatch, male, 1368-3665-2) Identifying Data: Khurram Kelly is a 25 [...] his L ankle. He was evaluated at [facility]' ED on 06/[address] angiogram negative [...] myelomonocytic leukemia. He was referred to [facility] for further evaluation and man agement of his newly dx'd AML. Pt was admitted to [facility] on 05/26/15. Peripheral blood was sent [...] CD34, variable CD56, variable CD117, and dim [id number]-korwb mickey; promonocyte immunophenotype (70% by flow): CD11b, [...] 9 holes of golf earlier this week. Laquey well while he was playing bu t [...] mg/m2 IV daily x 5 days] 2. Oezab-qe-Gaah Disease: Skin bx due to mild rash [...] note, pt and planning to travel to [place] 01/05-01/10/16 [facility] [address] [facility] Mailcode: [place] [address] documented in this enc ounter [...] | 2019 | Visit | Malignancy | [address] [place] [address] | | | | | | [facility] | | | | | | [place], [place] | | | | | | [address] | | | | | | [phone] | | | | | | | | +--------+---------+ + + + documented as of this encounter Visit Diagnoses + + | Diagnosis | + + | 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
--- OUTSIDE RECORDS SUMMARY | ~2019-05-17 | XMS | Encounter Summary ---
Demographics + + + | Address | [address] | | | [place] [address] | + + + | Home Phone [...] Providers + +------+ + | Care Helicopter Crew Chief Name | Role | Phone | [...] Description | +--------+--------+ + + + | 06/04/ | Refill | Center for | Yari Garcia MD | Refill Request | | 2017 | | Hematologic | [address] | | | | | Malignancies at | [address] [facility] | | | | | [place] | [place], [place] | | | | | [address] [facility] [address] | [address] | | | | | [facility] Mailcode: | [phone] | | | | | [address] [place] | | | | | | [place], | | | | | | [place] [address] | | | | | | [phone] | | | +--------+--------+ + + + [...] 2019 | Visit | Malignancy | [address] [facility] | | | | | | [address] | | | | | | [place] | | | | | | [address] | | | | | | [phone] | | | | | | | | +--------+---------+ + + + documented as of this encounter Visit Diagnoses Not on filedocumented in this encounter"
--- OUTSIDE RECORDS SUMMARY | ~2019-05-17 | XMS | Encounter Summary ---
Demographics + + + | Address | [address] | | | [place] [address] | + + + | Home Phone [...] Team Providers + +------+ + | Care Home Care Specialist Name | Role | Phone | [...] | | | | | achieved | [facility], [place] | [address] | | | | | remission | [address] | [place] | | | | | | Phone: | Pavilion | | | | | Procedures | [phone] | [place], [place] | | | | | Post BMT | Fax: | [address] | | | | | Auth to | [phone] | Phone: | | | | | included | | [phone] | | | | | facility, | | Fax: | | | | | diagnostics, | | [phone] | | | | | office | [...] | | Malignancies at [facility] | Road [place], [place] | | | | | [address] | [address] | | | | | W[address] Burger Mailcode: | | | | | | [address] | | | | | | Pavilion [place], | | | | | | [place] [address] | | | | | | [phone] | | | +--------+ + + + [...] | Visit | Malignancy | [address] [facility] | | | | | | [address] | | | | | | [place], [place] | | | | | | [address] | | | | | | [phone] | | | | | | | [...] SORTO | [address] | [place], [place] | | | RUTHIE CARTER OF CARE | [address] | [address] | | | TESTS | | | [...] MACARIO | [address] | [place], [place] | | | [place] CARE | [address] | [address] | | | TESTS | | | [...] | + + + + + | [facility] | [address] | [place] [address] | | | SERVICES, CORE | WALLY [...]
--- OUTSIDE RECORDS SUMMARY | ~2019-05-17 | XMS | Encounter Summary ---
Demographics + + + | Address | [address] | | | [place] [address] | + + + | Home Phone [...] Team Providers + +------+ + | Care 411 Directory Assistance Operator Name | Role | Phone | + +------+ + | Zayda Hinton | PCP | | + +------+ + Encounter Details +--------+ + + + + | Date | Type | Department | Care Team | Description | +--------+ + + + + | 08/25/ | Document-Sc | [facility] [address] | Yari Garcia MD | | | 2016 | anned | [address] | [address] | | | | | [place], [place] | [address] | | | | | [address] | [place], [place] | | | | | | [address] | | | | | | [phone] | | | | | | | [...] Rd | | | | | | [place], [place] | | | | | | [address] | | | | | | [phone] | | | | | | | | +--------+---------+ + + + documented as of this encounter Visit Diagnoses Not on filedocumented in this encounter"
--- OUTSIDE RECORDS SUMMARY | ~2019-05-17 | XMS | Encounter Summary ---
Demographics + + + | Address | [address] | | | [place] [address] | + + + | Home Phone [...] Providers + +------+ + | Care Contact Lens Edge Buffer Name | Role | Phone | + [...] | | | [address] | [place], [place] | | | | | [address] Mailcode: | [address] | | | | | [address] | [phone] | | | | | [place], | | | | | | [place] [address] | | | | | | [phone] | | | +--------+ + + + [...] Rd | | | | | | [place] | | | | | | [address] | | | | | | [phone] | | | | | | | | +--------+---------+ + + + documented as of this encounter Visit Diagnoses Not on filedocumented in this encounter"
--- OUTSIDE RECORDS SUMMARY | ~2019-05-17 | XMS | Encounter Summary ---
Demographics + + + | Address | [address] | | | [place] [address] | + + + | Home Phone [...] Team Providers + +------+ + | Care Shared Services And Outsourcing Manager Name | Role | Phone | [...] | | | | Christian Barry | [place], [place] | | | | | [address] | [address] | | | | | [address] Mailcode: | [phone] | | | | | [address] | | | | | | [place], | | | | | | [place] [address] | | | | | | [phone] | | | +--------+--------+ + + + [...] | | | | | | [place] | | | | | | [address] | | | | | | [phone] | | | | | | | | +--------+---------+ + + + documented as of this encounter Visit Diagnoses Not on filedocumented in this encounter"
--- OUTSIDE RECORDS SUMMARY | ~2019-05-17 | XMS | Encounter Summary ---
Demographics + + + | Address | [address] | | | [place] [address] | + + + | Home Phone [...] Team Providers + +------+ + | Care Diaper Machine Tender Name | Role | Phone [...] | Mailcode: | | | | | ([facility]) | [place], [place] | [address] | | | | | Procedures | [address] | [place] | | | | | MRI HIP LT W | Phone: | Research | | | | | CONT MD | [phone] | Center | | | | | MRI, JOINT | Fax: | [place], [place] | | | | | OF LEG | [phone] | [address] | | | | | W/CONTRAST | | Phone: | | | | | | | [phone] | | | | | | | Fax: | | | | | | | [phone] | +--------+--------+ + + + + Encounter Details +--------+ + + + + | Date | Type | Department | Care Team | Description | +--------+ + + + + | 07/05/ | [place] | Center for | Yari Garcia MD | S/P allogeneic bone | | 2016 | | Hematologic | [address] | marrow transplant | | | | Malignancies at | [address] | (HCC) (Primary Dx) | | | | Christian Barry | [place], [place] | | | | | [address] | [address] | | | | | [address] Mailcode: | [phone] | | | | | [address] | | | | | | [place], | | | | | | [place] [address] | | | | | | [phone] | | | +--------+ + + + [...] Rd | | | | | | [place], [place] | | | | | | [address] | | | | | | [phone] | | | | | | | | +--------+---------+ + + + documented as of this encounter Visit Diagnoses + + | Diagnosis | + + | 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
--- OUTSIDE RECORDS SUMMARY | ~2019-05-17 | XMS | Encounter Summary ---
Demographics + + + | Address | [address] | | | [place] [address] | + + + | Home Phone [...] Team Providers + +------+ + | Care Barking Machine Feeder Name | Role | Phone [...] | Hematology | Diagnoses | Cook, | [facility] Faculty | | | | Malignancy | 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, | [address] | Wally [address] | | | | | not having | [address] | Mailcode: | | | | | achieved | [place], [place] | [id number] | | | | | remission | [id number] | [facility] | | | | | | Phone: | Pavilion | | | | | Procedures | [phone] | [place], [place] | | | | | Post BMT | Fax: | [address] | | | | | Auth to | [phone] | Phone: | | | | | included | | [phone] | | | | | facility, | | Fax: | | | | | diagnostics, | | [phone] | | | | | office | | | | | | | visits and | | | | | | | surgery | | | +--------+---------+ + + + + Encounter Details +--------+ + + + + | Date | Type | Department | Care Team | Description | +--------+ + + + + | 10/03/ | Clinical | Center for | | Schedule labs | | 2016 | Support | Hematologic | | (Trifusion); | | | Staff | Malignancies at [facility] | | Intravenous infusion | | | | [address] | | (magnesium); | | | | [address] Mailcode: | | Follow-up visit | | | | [id number] | | (JULIANA Jimenez ) | | | | [place], | | | | | | [place] [address] | | | | | | [phone] | | | +--------+ + + + [...] encounter Progress Notes Pricilla Guy RN - 10/04/2015 4:07 PM PDTINFUSION/TRANSFUSION NURSING NOTE Name: Khurram Kelly Date: 10/04/2015 Provider: Yari Garcia MD/JULIANA Jimenez Subjective: Patient arrived to clinic ambulatory with spouse. 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 Patient reports feeling well. He called into clinic this weekend with complaints of abdomina l pain and constipation. Patient increased his docusate dose and took milk of magnesia. Anabel ent began to have loose stools after that but states that is resolved. Patient's rash that w as present to abdomen, back and arms is almost completely resolved. Patient reports his ener gy is improving. Denies any fevers, chills, sob, vomiting, bleeding, edema, urinary issues, or any new skin issues. Patient reports eating well and drinking at least 2 L of fluids daily. Past illnesses: Khurram has [...] scheduled for provider visi t today with JULIANA Jimenez. Patient took morning tacrolimus dose of 1.5 mg AFTER lab draw. Magnesium: Magnesium Sulfate 2 gm in 50 mL NS infusion started per supportive care orders for a magnes ium level on previous visit of 1.7. Patient's mag resulted at 1.9 today. Magnesium infusion stopped. Patient received approximately 1 gm of magnesium over 30 minutes. For infusion details, see MAR. Neostar pulse flushed with 20 mL NS and 5 mL of 10 units/mL Heparin. Narrative: Patient requires no other supportive measures today. Patient met with JULIANA Jimenez for follow up appointment. Patient is having seasonal allergies. Confirmed with JULIANA Jimenez that it is OK for patient to take Claritin or Zyrtec per patient's request. Patient will re turn to [facility] infusion clinic for next appointment on 10/07/2015 or sooner if needed. Reviewed post transplant precautions with patient and spouse. Patient discharged ambulatory with spouse. Pricilla Guy RN documented in this encounter [...] | | | | | | [facility] | | | | | | [place], [place] | | | | | | [address] | | | | | | [phone] | | | | | | | | +--------+---------+ + + + documented as of this encounter Procedures + +--------+ + + + | Procedure Name | Priori | Date/Time | Associated Diagnosis | Comments | | | ty | | | | + +--------+ + + + | CBC+DIFF,POC | Urgent | 10/04/2015 | Acute myeloid | Results for this | | | | 12:43 PM | leukemia (AML), M4 | procedure are in the | | | | PDT | ([facility])- primary | results section. 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 | | | | | | ([facility]) | | + +--------+ + + + | BMP + MAG, POC CHM | Urgent | 10/04/2015 | Acute myeloid | Results for this | | | | 12:42 PM | leukemia (AML), M4 | procedure are in the | | | | PDT | ([facility])- primary | results section. 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 | | | | | | (HCC) | | + +--------+ + + + | TREATMENT PARAMETERS | Routin | 10/04/2015 | Acute myeloid | | | #2 - [facility] | e | 12:25 PM | leukemia (AML), M4 | | | | | PDT | ([facility])- primary | | | | | | induction failure | | + +--------+ + + + | TREATMENT PARAMETERS | Routin | 10/04/2015 | Acute myeloid | | | #2 - [place] | e | 12:25 PM | leukemia (AML), M4 | | | | | PDT | ([facility])- primary | | | | | | induction failure | | + +--------+ + + + | TREATMENT PARAMETERS | Routin | 10/04/2015 | Acute myeloid | | | #2 - [place] | e | 12:25 PM | leukemia (AML), 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 | | | | | | induction failure | | + +--------+ + + + | TREATMENT PARAMETERS | Routin | 10/04/2015 | Acute myeloid | | | #2 - [place] | e | 12:25 PM | leukemia (AML), 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 | | | | | | induction failure | | + +--------+ + + + | TREATMENT PARAMETERS | Routin | 10/04/2015 | Acute myeloid | | | #2 - [place] | e | 12:25 PM | leukemia (AML), 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 | | | | | | induction failure | | + +--------+ + + + | NURSING | Routin | 10/04/2015 | Acute myeloid | | | COMMUNICATION #3 - | e | 12:25 PM | leukemia (AML), M4 | | | [facility] | | PDT | (HCC)- primary | | | | | | induction failure | | + +--------+ + + + | NURSING | Routin | 10/04/2015 | Acute myeloid | | | COMMUNICATION #2 - | e | 12:25 PM | leukemia (AML), M4 | | | [facility] | | PDT | (HCC)- primary | | | | | | induction failure | | + +--------+ + + + | NURSING | Routin | 10/04/2015 | Acute myeloid | | | COMMUNICATION #1 - | e | 12:25 PM | leukemia (AML), M4 | | | [facility] | | PDT | (HCC)- primary | | | | | | induction failure | | + +--------+ + + + | TREATMENT PARAMETERS | Routin | 10/04/2015 | Acute myeloid | | | #1 - [place] | e | 12:25 PM | leukemia (AML), 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 | | | | | | induction failure | | + +--------+ + + + | TREATMENT PARAMETERS | Routin | 10/04/2015 | Acute myeloid | | | #1 - [place] | e | 12:25 PM | leukemia (AML), M4 | | | | | PDT | ([facility])- primary | | | | | | induction failure | | + +--------+ + + + | CMV PCR | Urgent | 10/04/2015 | Acute myeloid | Results for this | | QUANTITATION, PLASMA | | 12:25 PM | leukemia (AML), M4 | procedure are in the | | | | PDT | ([facility])- primary | results section. 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 | | | | | | (HCC) | | + +--------+ + + + | LIVER SET | Urgent | 10/04/2015 | Acute myeloid | Results for this | | (AST,ALT,BILI | | 12:25 PM | leukemia (AML), M4 | procedure are in the | | TOTAL,BILI | | PDT | ([facility])- primary | results section. | | DIRECT,ALK | | | induction failure | | | PHOS,ALB,PROT TOTAL) | | | S/P allogeneic bone | | | | | | marrow transplant | | | | | | (HCC) | | + +--------+ + + + | TACROLIMUS, WHOLE | Urgent | 10/04/2015 | Acute myeloid | Results for this | | BLOOD | | 12:25 PM | leukemia (AML), M4 | procedure are in the | | | | PDT | ([facility])- primary | results section. 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 | | | | | | (HCC) | | + +--------+ + + + | IGG, SERUM | Urgent | 10/04/2015 | Acute myeloid | Results for this | | | | 12:25 PM | leukemia (AML), M4 | procedure are in the | | | | PDT | ([facility])- primary | results section. 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 | | | | | | (HCC) | | + +--------+ + + + | PHOSPHORUS, PLASMA | Urgent | 10/04/2015 | Acute myeloid | Results for this | | | | 12:25 PM | leukemia (AML), M4 | procedure are in the | | | | PDT | ([facility])- primary | results section. 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 | | | | | | (HCC) | | + +--------+ + + + | ASPERGILLUS | Urgent | 10/04/2015 | Acute myeloid | Results for this | | GALACTOMANNAN | | 12:25 PM | leukemia (AML), M4 | procedure are in the | | ANTIGEN, SERUM | | PDT | ([facility])- primary | results section. 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 | | | | | | (HCC) | | + +--------+ + + + documented in this encounter Results CBC+DIFF,POC (10/04/2015 12:43 PM PDT) + + + + + + | Component | Value | Ref Range | Performed | Pathologist | | | | | At | Signature | + + + + + + | WBC POC | 13.1 (H) | 4.4 - 11.0 | [facility] - | | | | | 10*3/uL | [place] | | | | | | [facility] POINT | | | | | | OF CARE | | | | | | TESTS | | + + + + + + | RBC POC | 3.57 (L) | 4.50 - 6.00 | [facility] [...] + + | RDW SD, POC | 56.6 (H) | 35.1 - 46.3 fL | [facility] - | | | | | | [place] | | | | | | [facility], POINT | | | | | | OF CARE | | | | | | TESTS | | + + + + + + | PLT POC | 172 | 150 - 400 | [facility] - [...] + + + + | NEUTROPHIL% | 75.4 (H) | 50.0 - 70.0 % | [facility] - | | | POC | | | [place] | | | | | | [facility] POINT | | | | | | OF CARE | | | | | | TESTS | | + + + + + + | LYMPH% POC | 8.8 (L) | 18 - 42 % | [facility] | | | | | | [place] | | | | | | [facility] POINT | | | | | | OF CARE | | | | | | TESTS | | + + + + + + | MONO %, POC | 10.7 (H) | 3.5 - 9.0 % | [facility] | | | | | | [place] | | | | | | [facility] POINT | | | | | | OF CARE | | | | | | TESTS | | + + + + + + | EOS %, POC | 4.6 (H) | 1.0 - 3.0 % | [...] + + + + | NEUTROPHIL# | 9.9 (H) | 1.8 - 7.7 | [facility] [...] + + | MONO #, POC | 1.4 (H) | 0.1 - 0.9 | [facility] - | | | | | 10*3/uL | [place] | | | | | | [facility] POINT | | | | | | OF CARE | | | | | | TESTS | | + + + + + + | EOS #, POC | 0.6 (H) | 0.0 - 0.5 | [facility] [...] + | CBC | Imm Gran, Left Shift | | [facility] - | | | [...] + + + | [facility] | [address] | [place], [place] | | | [facility] POINT OF CARE | [address] | [address] | | | TESTS | | | | + + + + + PHIL TRIANA (10/04/2015 12:42 PM PDT) + +---------+ + + + [...] + + + | LDH, POC | 248 (H) | 0 - 206 U/L | [...] [facility] | [address] | [place], [place] | | | [facility] | [address] | [address] | | | TESTS | | | | + + + + + CMV PCR QUANTITATION, PLASMA (10/04/2015 12:25 PM PDT) + + + + + [...] 2 fold may not reflect true | [facility] | | biological changes and must be [...] of [facility] | | | Molecular Diagnostic Center. It has not been cleared or approved by | | | the Food and Drug Administration. FDA approval is not required for | | | clinical use of this test, and therefore validation was done as | | | required under the requirements of the Clinical Laboratory Improvement | | | Act of 1988. The [facility] | | | Diagnostic Center is a fully licensed and/or accredited clinical | | | laboratory under CLIA, CAP, and the [facility]. | | + + + + + + + + | Performing | Address | City/State/Zipcode | Phone Number | | Organization | | | | + + + + + | [facility] | [address] | [place] [address] | | | DIAGNOSTIC | [address] | | | | LABORATORIES | | | | + + + + + ASPERGILLUS GALACTOMANNAN ANTIGEN, SERUM (10/04/2015 12:25 PM PDT) + + + + + [...] + + + | ASP GAL | 0.16 | <=0.49 Index | [facility] | | [...] INTERPRETATION: Aspergillus galactomannan Antigen by EIA | [facility] | | | LABORATORY | | [...] [facility] | [address] | [place] [address] | | | SERVICES, SPECIAL | [address] | | | | IMM + COAG | | | | + + + + + LIVER SET (AST,ALT,BILI TOTAL,BILI DIRECT,ALK PHOS,ALB,PROT TOTAL) (10/04/2015 12:25 PM PDT ) + +---------+ + + [...] [facility] | [address] | [place] [address] | | | SERVICES, CORE | [address] | | | + + + + + PHOSPHORUS, PLASMA (10/04/2015 12:25 PM PDT) + +-------+ + + + [...] + + + + | [facility] | [address] | [place] [address] | | | SERVICES, CORE | [address] | | | + + + + + TACROLIMUS, WHOLE BLOOD (10/04/2015 12:25 PM PDT) + +-------+ + + + | Component | Value | Ref Range | Performed | Pathologist | | | | | At | Signature | + +-------+ + + + | TACROLIMUS | 9.0 | 5.0 - 15.0 | [facility] | [...] | [facility] | [address] | [place] [address] | | | SERVICES, SPECIAL | [address] | | | | IMM + COAG | | | | + + + + + IGG, SERUM (10/04/2015 12:25 PM PDT) + +---------+ + + + | Component | Value | Ref Range | Performed | Pathologist | | | | | At | Signature | + +---------+ + + + | IGG SERUM | 553 (L) | 700 - 1600 | [facility] [...] + | [facility] - | [address] | [place] [address] | | | [place] | | | | + + + + + documented in this encounter Visit Diagnoses + + | Diagnosis | + + | Acute myeloid leukemia (AML), 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 - Primary | + [...] 10 unit/mL IV flush | Given | 10/04/19 | 50 Units | | | | syringe 50 Units 50 Units, | | 16 1:30 | | | | | Intracatheter, NEEDED, | | PM PDT | | | | | Starting 10/04/15 at 1605, | | | | | | | Until Sun10/04/15 at 2222, line | | | | | | | patency | | | | | | + +--------+ + +------+------+ +---+---+ | | | +---+---+ + +---------+ +-----+---+---+ | magnesium sulfate in water IV | New Bag | 10/04/19 | 2 g | | | | (RTU) 2 g 2 g, intravenous, | | 16 12:48 | | | | | ONCE, 1 dose, 10/04/15 at 1230 | | PM PDT | | | | + +---------+ +-----+---+---+ +---+---+ | | | +---+---+ documented in this encounter"
--- OUTSIDE RECORDS SUMMARY | ~2019-05-17 | XMS | Encounter Summary ---
Demographics + + + | Address | [address] | | | [place] [address] | + + + | Home Phone [...] Team Providers + +------+ + | Care Pan Pusher Name | Role | Phone | [...] | | | | | | | [address] | | | | | | | [address] | | | | | | | [place], | | | | | | | [place] | | | | | | | [address] | | | | | | | Phone: | | | | | | | [phone] | | | | | | | Fax: | | | | | | | [phone] | +--------+--------+ + + + + Encounter Details +--------+---------+ + + + | Date | Type | Department | Care Team | Description | +--------+---------+ + + + | 12/06/ | Office | Center for | Yari Garcia MD | Acute myeloid | | 2016 | Visit | Hematologic | [address] | leukemia (AML), M4 | | | | Malignancies at | [address] | (HCC)- primary | | | | [facility] | [place], [place] | induction failure | | | | [address] | [address] | (Primary Dx); | | | | Debi Burger Mailcode: | [phone] | Immunocompromised | | | | [facility] [place] | | state associated | | | | [facility] [place], | | with stem cell | | | | [place] [address] | | transplant (HCC); | | | | [phone] | | CMV (cytomegalovirus | | | [...] [facility] Dr Garcia or Aspen Cummins once a [...] MM URD (DPB1 permissive antigen mismatch, male, [id number]) Identifying Data: Khurram Navaleland is a 25 [...] his L ankle. He was evaluated at [facility] ED on 06/[address] angiogram negative [...] CD34, variable CD56, variable CD117, and dim RC156-fjexx mickey; promonocyte immunophenotype (70% by flow): CD11b, [...] cycle #2 of azacitidine and returns to [facility] today for scheduled follow-up. Interim History: Khurram [...] ant chest wall without erythema, induration Clinical Waiter/Waitress Captain on 12/07/2015 Component Date Value WBC POC [...] of post-tx aza depending on tolerance/response 2. Kityl-ds-Qwng Disease: Skin bx due to mild rash [...] weekly provider visits Yari Garcia MD, MS Sales Representative Public Utilitiesinstructional technology facilitator [facility] [address] [place] [id number] documented in this enc ounter Plan of [...] Rd | | | | | | [place], [place] | | | | | | [address] | | | | | | [phone] | | | | | | | [...]
--- OUTSIDE RECORDS SUMMARY | ~2019-05-17 | XMS | Encounter Summary ---
Demographics + + + | Address | [address] | | | [place] [address] | + + + | Home Phone [...] Team Providers + +------+ + | Care Systems Security Consultant Name | Role | Phone | [...] + + + + | 08/16/ | Diagnostic | Center for | | [...] | | | | | | [facility] | | | | | | [place] [address] | | | | | | [phone] | | | +--------+ + + + [...] + documented as of this encounter [facility] [place] - 08/16/2016 8:45 AM PSTLeft AC accessed with a 23 gauge butterfly needle. Labs drawn and sent. Tolerated procedure well. Site dressed with sterile gauze and Coban. Patient scheduled for provider visit today with ORLY Yanes. Theo Brown documented in this encount er Plan of [...] Rd | | | | | | [place], [place] | | | | | | [address] | | | | | | [phone] | | | | | | | | +--------+---------+ + + + documented as of this encounter Procedures + +--------+ + + + | Procedure Name | Priori | Date/Time | Associated Diagnosis | Comments | | | ty | | | | + +--------+ + + + | BMP + MAG, POC CHM | Routin | 08/16/2016 | S/P allogeneic | Results for this [...] + + | CBC+DIFF,POC | Routin | 08/16/2016 | S/P allogeneic | Results for this [...] + | LIVER SET | Urgent | 08/16/2016 | S/P allogeneic | Results for this [...] encounter Results BMP + MAG, POC CHM (08/16/2016 9:24 AM PST) + +---------+ + + [...] + + + | LDH, POC | 331 (H) | 0 - 206 U/L | [...] [facility] | [address] | [place], [place] | | | RUTHIE CARTER OF [facility] | [address] | [address] | | | TESTS | | | | + + + + + CBC+DIFF,POC (08/16/2016 9:18 AM PST) + + + + + + | Component | Value | Ref Range | Performed | Pathologist | | | | | At | Signature | + + + + + + | WBC POC | 7.5 | 4.4 - 11.0 | [facility] - | | | | | 10*3/uL | [place] | | | | | | RUTHIE CRATER | | | | | | OF CARE | | | | | | TESTS | | + + + + + + | RBC POC | 4.83 | 4.50 - 6.00 | [facility] - | | | | | 10*6/uL | [place] | | | | | | RUTHIE CARTER | | | | | | OF CARE | | | | | | TESTS | | + + + + + + | HGB POC | 15.5 | 13.5 - 17.5 | [facility] - [...] + + + | MCV POC | 90.7 | 80.0 - 96.0 fL | [facility] [...] + + | RDW SD, POC | 40.4 | 35.1 - 46.3 fL | [facility] - | | | | | | [facility] | | | | | | RUTHIE CARTER | | | | | | OF CARE | | | | | | TESTS | | + + + + + + | PLT POC | 273 | 150 - 400 | [facility] - [...] + + + + | NEUTROPHIL% | 57.4 | 50.0 - 70.0 % | [facility] - | | | POC | | | [facility] | | | | | | [facility] POINT | | | | | | OF CARE | | | | | | TESTS | | + + + + + + | LYMPH% POC | 26.6 | 18 - 42 % | [facility] - | | | | | | [facility] | | | | | | RUTHIE CARTER | | | | | | OF CARE | | | | | | TESTS | | + + + + + + | MONO %, POC | 11.6 (H) | 3.5 - 9.0 % | [facility] - | | | | | | [place] | | | | | | [facility] POINT | | | | | | OF CARE | | | | | | TESTS | | + + + + + + | EOS %, POC | 3.7 (H) | 1.0 - 3.0 % | [...] [facility] | [address] | [place], [place] | | | [facility] POINT OF CARE | [address] | [address] | | | TESTS | | | | + + + + + LIVER SET (AST,ALT,BILI TOTAL,BILI DIRECT,ALK PHOS,ALB,PROT TOTAL) (08/16/2016 9:00 AM PST ) + +---------+ + + [...] +---------+ + + + | AST(SGOT) | 118 (H) | <=41 U/L | [facility] | | | | | | LABORATORY | | | | | | SERVICES, | | | | | | CORE | | + +---------+ + + + | ALT (SGPT) | 161 (H) | <=60 U/L | [facility] | [...] + + + + + | [facility] | [address] | [place] [address] | | | SERVICES, INDRA | [address] [...]
--- OUTSIDE RECORDS SUMMARY | ~2019-05-17 | XMS | Encounter Summary ---
Demographics + + + | Address | [address] | | | [place] [address] | + + + | Home Phone [...] Providers + +------+ + | Care Gas System Operator Name | Role | Phone | [...] Visit | Hematologic | [address] [facility] | marrow transplant | | | | Malignancies at | [place] [address] | (HCC) (Primary Dx) | | | | [facility] | [facility] [place] | | | | | [address] [place] | [address] | | | | | [address] Mailcode: | [phone] | | | | | [facility] | | | | | | [facility], | | | | | | [place] [address] | | | | | | [phone] | | | +--------+---------+ + + + [...] MM URD (DPB1 permissive antigen mismatch, male, 9020-5589-2) Identifying Data: Khurram Lobo Kelly is a [...] his L ankle. He was evaluated at [facility] ED on 06/[address] angiogram negative [...] acute myelomonocytic leukemia. He was referred to [facility] for further evaluation and man agement of his newly dx'd AML. Pt was admitted to [facility] on 05/26/15. Peripheral blood was [...] CD34, variable CD56, variable CD117, and dim SA183-xveje mickey; promonocyte immunophenotype (70% by flow): CD11b, [...] indicated providing peripheral counts remain stable 2. 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 He initial ly responded but flared during taper. He also developed low-level nausea and abd discomfort concerning for GvHD, empirically treated with oral non-absorbables with resolution. He had t apered prednisone to 10 mg po daily when he developed a rash for which he was seen in the ED in [place] in late 01/21. Prednisone was increased back [...] 73 FEV1/FVC PRE (%REF) % 94 88 QEY83-61% PRE 5.09 L/sec 4.64 4.12 [facility]05-21% PRE (%REF) % 91 79 PEF PRE [...] on 10/02/16, sooner prn --> labs at [facility] prior [facility] Yanes [facility] [place] [address] [facility] Mailcode: [id number] [phone] documented in this enc ounter Plan of [...] Rd | | | | | | [place], [place] | | | | | | [address] | | | | | | [phone] | | | | | | | [...] | Test performed by immunoassay using Blanton Speeder Operator i2000. . | [facility] | | [...] [facility] | [address] | [place] [address] | | | SERVICES, SPECIAL | PARK [...] [facility] | [address] | [place] [address] | | | SERVICES, CORE | PARK [...] | + + + + + | [facility] | [address] | [place] [address] | | | SERVICES, CORE | [address] [...] [facility] | [address] | [place] [address] | | | SERVICES, CORE | [address] [...] | + + + + + | [facility] | [address] | [place] [address] | | | SERVICES, CORE | [address] | | | + + + + + MAGNESIUM, PLASMA (10/02/2016 8:33 AM PDT) + +-------+ + + + | Component | Value | Ref Range | Performed | Pathologist | | | | | At | Signature | + +-------+ + + + | MAGNESIUM,P | 2.0 | 1.8 - 2.5 mg/dL | [facility] | | | LASMA | | | [...] | + + + + + | [facility] | [address] [facility] | [place] [address] | | | SERVICES, CORE | [address] [...] | | | LABORATORY | | | CY[facility] | | | SERVICES, | | | [...] | + + + + + | [facility] | [address] [facility] [address] | [place] [address] | | | SERVICES, CORE | [address] | | | + + + + + documented in this encounter Visit Diagnoses + + | Diagnosis | + + | 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
--- OUTSIDE RECORDS SUMMARY | ~2019-05-17 | XMS | Encounter Summary ---
Demographics + + + | Address | [address] | | | [place] [address] | + + + | Home Phone [...] Providers + +------+ + | Care Air Traffic Control Specialist Name | Role | Phone [...] | | | | | | [place], | | | | | | | [place] | | | | | | | [address] | | | | | | | Phone: | | | | | | | [phone] | | | | | | | Fax: | | | | | | | [phone] | +--------+--------+ + + + + Encounter [...] | | | | | | [facility] [address] | | | | | | [place], | | | | | | [place] [address] | | | | | | [phone] | | | +--------+ + + + [...] to flu vaccine? No Prior history of Guillain-Stone syndrome? No (For patients receiving Fluarix): Allergy [...] 2018 | Visit | Malignancy | [address] [facility] | | | | | | [address] | | | | | | [place], [place] | | | | | | [address] | | | | | | [phone] | | | | | | | [...] | [facility] | [address] | [place] [address] | | | SERVICES, SPECIAL | PARK [...] + + + | SHAN | [address], | [place] [address] | | | DIAGNOSTIC | [address] [...] + + + + | SHAN | [address] | [place] [address] | | | DIAGNOSTIC | [address] [...] + + | [facility] | [address] | [place] [address] | | | DIAGNOSTIC | [address] [...] SORTO | [address] | [place], [place] | | | RUTHIE CARTER OF KRISTA | [facility] | [address] | | | TESTS | | | [...] + | [facility] | [address] | [place] [address] | | | SERVICES, CORE | WALLY [...] | characteristics determined by the [facility] | | | [facility]. It has not been cleared or approved by | | | the Food and Drug Administration. FDA approval is not required for | | | clinical use of this test, and therefore validation was done as | | | required under the requirements of the Clinical Laboratory Improvement | | | Act of 1988. The [facility] | | | [facility] Center is a fully licensed and/or accredited clinical | | | laboratory under CLIA, CAP, and the [facility]. | | + + + + + + + + | Performing | Address | City/State/Zipcode | Phone Number | | Organization | | | | + + + + + | SHAN | [address] | [place] [address] | | | DIAGNOSTIC | [address] [...] [facility] | [address] | [place] [address] | | | SERVICES, CORE | PARK [...] | | | | | CD56, CD117, xspBY619 | | | | | | ([id number]), status | | | | | | [...] | | | | | a reversed CD4:WI0lykdv. | | | | | | Please [...] Myeloid | | | | | | ynblmxcsqs34%, erythroid | | | | | | [...] CD10 | | | | | | [id number] CD14 CD15 CD16 | | | | | | CD19 CD20 CD33 [id number] | | | | | | CD45 CD56 CD58 CD64 | | | | | | CD71 CD117 | | | | | | [id number] sLambda | | | | | | [...] | + + + + + | [facility] | [address] | [place] [address] | | | PATHOLOGY | [address] [...] Gene: | | | | | | [id number]: | | | | | | p.S185I [...] routine | | | | | | Toponas dideoxy | | | | | | sequencing methods. | | | | | | Alist of the gene | | | | | | segments that are | | | | | | incompletely covered by | | | | | | the combinationof | | | | | | massively parallel and | | | | | | Toponas sequencing are | | | | | [...] supplementary | | | | | | lxc-tlovxuztea-brmim | | | | | | assay [...] | | | | | | IL7R NNUX6464.1 | | | | | | c.554G>T hg19 chr5 | | | | | | [id number] G | | | | | | [...] # | | | | | | [id number]. It has not | | | | [...] | | | | determined bythe [facility] | | | | | | [place] [...] | | | | the state of [place] | | | | | | under CLIA and | | | | | | areaccredited by [place] | | | | | | of [place] | | | | | | Pathologists [...] + + + + | [facility]AN | [address] | [place] [address] | | | DIAGNOSTIC | [address] [...] clinical | | | | | | airline lounge receptionist. | | | | | | Rendering [...] + + + | [facility]AN | [address] | [place] [address] | | | DIAGNOSTIC | [address] [...] NMDP | | | | | | [id number] | | | | | | indications: [...] | | | | | | STRloci [id number], vWA, | | | | | | FGA, [id number], D21S11, | | | | | | D18S51, F1W815, N30Z206, | | | | | | [id number],and amelogenin | | | | | | [...] | | | | determined bythe [facility] | | | | | | [place] [...] | | | | | The [facility] | | | | | | DiagnosticsLaboratories | | | | | | are fully licensed by | | | | | | the state of [place] | | | | | | under CLIA and | | | | | | areaccredited by College | | | | | | of [place] | | | | | | Pathologists [...] + + + + | [facility] | [address] | [place] [address] | | | DIAGNOSTIC | [address] [...]
--- OUTSIDE RECORDS SUMMARY | ~2019-05-17 | XMS | Encounter Summary ---
Demographics + + + | Address | [address] | | | [place] [address] | + + + | Home Phone [...] Providers + +------+ + | Care Marine Engineering Teacher Name | Role | Phone | [...] [address] | | | | | | [place], [place] | | | | | | [address] | | | | | | [phone] | | | +--------+ + + + [...] Rd | | | | | | [place], [place] | | | | | | [address] | | | | | | [phone] | | | | | | | | +--------+---------+ + + + documented as of this encounter Visit Diagnoses Not on filedocumented in this encounter"
--- OUTSIDE RECORDS SUMMARY | ~2019-05-17 | XMS | Encounter Summary ---
Demographics + + + | Address | [address] | | | [place] [address] | + + + | Home Phone [...] Team Providers + +------+ + | Care Household Appliance Repairer Name | Role | Phone | + +------+ + | Zayda Hinton | PCP | | + +------+ + Encounter Details +--------+ + + + + | Date | Type | Department | Care Team | Description | +--------+ + + + + | 01/16/ | Pharmacy | Specialty Pharmacy | | | | 2015 | Visit | Services [address] | | | | | | [address] | | | | | | [place], [place] | | | | | | [address] | | | | | | [phone] | | | +--------+ + + + [...] Rd | | | | | | [place], [place] | | | | | | [address] | | | | | | [phone] | | | | | | | | +--------+---------+ + + + documented as of this encounter Visit Diagnoses Not on filedocumented in this encounter"
--- OUTSIDE RECORDS SUMMARY | ~2019-05-17 | XMS | Encounter Summary ---
Demographics + + + | Address | [address] | | | [place] [address] | + + + | Home Phone [...] Team Providers + +------+ + | Care Horseradish Grinder Name | Role | Phone | + +------+ + | Zayda Hinton | PCP | | + +------+ + Encounter Details +--------+ + + + + | Date | Type | Department | Care Team | Description | +--------+ + + + + | 12/07/ | Pharmacy | Specialty Pharmacy | | | | 2016 | Visit | Services [address] | | | | | | [address] | | | | | | [place], [place] | | | | | | [address] | | | | | | [phone] | | | +--------+ + + + [...] [place] | | | | | | [address] | | | | | | [phone] | | | | | | | | +--------+---------+ + + + documented as of this encounter Visit Diagnoses Not on filedocumented in this encounter"
--- OUTSIDE RECORDS SUMMARY | ~2019-05-17 | XMS | Encounter Summary ---
Demographics + + + | Address | [address] | | | [place] [address] | + + + | Home Phone [...] Team Providers + +------+ + | Care Criminology Professor Name | Role | Phone | [...] [place] | | | | | | [address] | | | | | | [phone] | | | | | | | | +--------+---------+ + + + documented as of this encounter Visit Diagnoses Not on filedocumented in this encounter"
--- OUTSIDE RECORDS SUMMARY | ~2019-05-17 | XMS | Encounter Summary ---
Demographics + + + | Address | [address] | | | [place] [address] | + + + | Home Phone [...] Team Providers + +------+ + | Care Oracle Erp Architect Name | Role | Phone | [...] | | | | | Malignancies at [facility] | [address] | | | | | [address] | [place], [place] | | | | | Debi Burger Mailcode: | [address] | | | | | [facility] | [phone] | | | | | [place], | | | | | | [place] [address] | | | | | | [phone] | | | +--------+--------+ + + + [...] Rd | | | | | | [place] | | | | | | [address] | | | | | | [phone] | | | | | | | | +--------+---------+ + + + documented as of this encounter Visit Diagnoses Not on filedocumented in this encounter"
--- OUTSIDE RECORDS SUMMARY | ~2019-05-17 | XMS | Encounter Summary ---
Demographics + + + | Address | [address] | | | [place] [address] | + + + | Home Phone [...] Team Providers + +------+ + | Care Review Assistant Name | Role | Phone | + +------+ + | Zayda Hinton | PCP | | + +------+ + Encounter Details +--------+ + + + + | Date | Type | Department | Care Team | Description | +--------+ + + + + | 12/07/ | Pharmacy | Specialty Pharmacy | | | | 2016 | Visit | Services [address] | | | | | | [address] | | | | | | [place], [place] | | | | | | [address] | | | | | | [phone] | | | +--------+ + + + [...] Rd | | | | | | [place], [place] | | | | | | [address] | | | | | | [phone] | | | | | | | | +--------+---------+ + + + documented as of this encounter Visit Diagnoses Not on filedocumented in this encounter"
--- OUTSIDE RECORDS SUMMARY | ~2019-05-17 | XMS | Encounter Summary ---
Demographics + + + | Address | [address] | | | [place] [address] | + + + | Home Phone [...] Providers + +------+ + | Care Small Engine Trainer Name | Role | Phone | + [...] | | 2017 | | [facility] [address] | [address] | Other (R Hip | | | | [address] | [address] | "Clicking" ) | | | | Mailcode: PV430 | [place], [place] | | | | | [facility] | [address] | | | | | [facility] [place] | [phone] | | | | | [address] | | | | | | [phone] | | | +--------+ + + + [...] Rd | | | | | | [place] | | | | | | [address] | | | | | | [phone] | | | | | | | | +--------+---------+ + + + documented as of this encounter Visit Diagnoses Not on filedocumented in this encounter
--- OUTSIDE RECORDS SUMMARY | ~2019-05-17 | XMS | Encounter Summary ---
Demographics + + + | Address | [address] | | | [place] [address] | + + + | Home Phone [...] Team Providers + +------+ + | Care Primary Grade Teacher Name | Role | Phone | [...] | | | | | achieved | [place], [place] | [facility] | | | | | remission | [address] | [facility] | | | | | | Phone: | Pavilion | | | | | Procedures | [phone] | [place], [place] | | | | | Post BMT | Fax: | [address] | | | | | Auth to | [phone] | Phone: | | | | | included | | [phone] | | | | | facility, | | Fax: | | | | | diagnostics, | | [phone] | | | | | office | [...] Dressing change | | | | [facility] | | (Trifusion); | | | | [place], | | Intravenous infusion | | | | [place] [address] | | (magnesium); | | | | [phone] | | Hydration (NS ) | +--------+ [...] [place] | | | | | | [address] | | | | | | [phone] | | | | | | | [...] the | | | | PST | ([facility])- primary | results section. | | | [...] the | | | | PST | ([facility])- primary | results section. | | | [...] | | | | | PST | ([facility])- primary | | | | | | [...] | | | | | PST | ([facility])- primary | | | | | | [...] | | | | | PST | ([facility])- primary | | | | | | induction failure | | + +--------+ + + + | NURSING | Routin | 09/17/2015 | Acute myeloid | | | COMMUNICATION #3 - | e | 11:14 AM | leukemia (AML), M4 | | | [facility] | | PST | ([facility])- primary | | | | | | induction failure | | + +--------+ + + + | NURSING | Routin | 09/17/2015 | Acute myeloid | | | COMMUNICATION #2 - | e | 11:14 AM | leukemia (AML), M4 | | | [facility] | | PST | ([facility])- primary | | | | | | induction failure | | + +--------+ + + + | NURSING | Routin | 09/17/2015 | Acute myeloid | | | COMMUNICATION #1 - | e | 11:14 AM | leukemia (AML), M4 | | | [facility] | | PST | ([facility])- primary | | | | | | [...] the | | | | PST | ([facility])- primary | results section. | | | [...] the | | | | PST | ([facility])- primary | results section. 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 | [place], [place] | | | [facility]ARE | [address] | [address] | | | TESTS | | | [...] + + + | [facility] | [address] | [place], [place] | | | RUTHIE CARTER OF CARE | [address] | [address] | | | TESTS | | | [...] LABORATORY | [address] | [place] [address] | | | SERVICES, CORE | PARK [...] [facility] | [address] | [place] [address] | | | SERVICES, CORE | PARK [...] | + + + + + | [facility] | [address] | [place] [address] | | | SERVICES, SPECIAL | PARK [...]
--- OUTSIDE RECORDS SUMMARY | ~2019-05-17 | XMS | Encounter Summary ---
Demographics + + + | Address | [address] | | | [place] [address] | + + + | Home Phone [...] Team Providers + +------+ + | Care Panel Beater Name | Role | Phone | + [...] | | | | Christian Barry | [place], [place] | | | | | [address] | [address] | | | | | Debi Burger Mailcode: | [phone] | | | | | [facility] | | | | | | [place], | | | | | | [place] [address] | | | | | | [phone] | | | +--------+ + + + [...] Rd | | | | | | [place], [place] | | | | | | [address] | | | | | | [phone] | | | | | | | | +--------+---------+ + + + documented as of this encounter Visit Diagnoses Not on filedocumented in this encounter"
--- OUTSIDE RECORDS SUMMARY | ~2019-05-17 | XMS | Encounter Summary ---
Demographics + + + | Address | [address] | | | [place] [address] | + + + | Home Phone [...] Team Providers + +------+ + | Care Orthodontic Laboratory Technician Name | Role | Phone | + +------+ + | Pending Pcp Addition | PCP | Unavailable | + +------+ + Reason for Visit + + + | Reason | Comments | + + + | Follow-up visit | | + + + | Chemotherapy [...] | | | | | | [place], | | | | | | | [place] | | | | | | | [address] | | | | | | | Phone: | | | | | | | [phone] | | | | | | | Fax: | | | | | | | [phone] | +--------+--------+ + + + + Encounter Details +--------+---------+ + + + | Date | Type | Department | Care Team | Description | +--------+---------+ + + + | 07/28/ | Office | Center for | Aspen Cummins FNP | 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), M4 | | | | Malignancies at | [address] | (HCC) (Primary Dx) | | | | [facility] | [place], [place] | | | | | [address] | [address] | | | | | [place] Mailcode: | [phone] | | | | | [id number] [facility] | | | | | | [place], | | | | | | [place] [address] | | | | | | [phone] | | | +--------+---------+ + + + [...] + + + | Blood Pressure | 136/70 | 07/28/2015 3:05 PM | | | | | PST | | + + + + + | Pulse | 92 | 07/28/2015 3:05 PM | | | | | PST | | + + + + + | Temperature | 37 C (98.6 F) | 07/28/2015 3:05 PM | | | | | PST | | + + + + + | Respiratory Rate | 16 | 07/28/2015 3:05 PM | | | | | PST | | + + + + + | Oxygen Saturation | 100% | 07/28/2015 3:05 PM | | | | | PST | | + + + + + | Inhaled Oxygen | - | - | | | Concentration | | | | + + + + + | Weight | 81.3 kg (179 lb 3.7 | 07/28/2015 3:05 PM | | | | oz) | PST | | + + + + + | Height | - | - | | + + + + + | Body Mass Index | 22.7 | 07/15/2015 1:57 PM | | | | | PST | | + + + + + documented in this encounter Patient Instructions Patient Instructions Aspen Cummins FNP - 07/28/2015 3:24 PM PST1. Continue all of your c urrent medications 2. Refills for oxycodone and alprazolam have been sent to [facility] 3. Try to add more calories to your diet, keep handy snacks closeby 4. Try to get a little exercise every day 5. Continue to check your temperature two to three times daily and call immediately for an y temperature greater than 100.4. 6. Return to clinic on 07/30/15 for labs and possible blood products, then again on 08/02/15 to follow up with Yari Garcia MD. Please call sooner as needed.Electronica lly signed by ORLY Yanes at 07/28/2015 3:26 PM PST documented in this encounter Progress Notes Aspen Cummins FNP - 07/28/2015 8:04 AM PST 07/28/2015 [facility] MD: [...] his L ankle. He was evaluated at [facility] on 06/[address] angiogram negative [...] arthralgias, recurrent fevers, pericarditis and CBC abnl, he was referred to Oncology for additional evaluation. Marrow studies completed on 05/19/15 showed a hypercellular marrow (80-90%) with 86% of blast equivalents, comprised of myelobla sts, monoblasts and promonocytes. Concurrent flow cytometry detected 23% myeloid blasts and 60% immature monocytic cells supporting this diagnosis. 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 He was referred to [facility] for further evaluation and m anagement of his newly dx'd AML. Pt was admitted to [facility] on 05/26/15. Peripheral blood was sent for diagnostic studies, l[place] wed 47% blasts and 30% monocytes, immunophenotype of blasts: dimCD13, CD33, CD34, CD56, CD11 7, and CD123 c/w AMML. Cytogenetic and FISH studies were normal however Genetrails demonstr ated a mutation of NRAS (~40%). He then received standard induction therapy (3+7). His day 1 4 marrow [06/09/15] showed a 50-60% cellular marrow with approximately 50% blasts. He began r e-induction regimen with HAM on 06/11/15. Repeat marrow studies completed 07/08/15 showed a h ypocellular marrow (15%) with ~80% blasts/promonocytes c/w residual disease. Blast immunoph enotype (10% by flow): dim CD13, CD33, CD34, variable CD56, variable CD117, and dim [id number] sitive; promonocyte immunophenotype (70% by flow): CD11b, CD13, CD14, variable CD16, CD33, v ariable CD56, CD64, and HLA-DR- positive. Cytogenetic and FISH studies remained normal, Gene trails pending. Pt's hospital course was complicated by [...] today for scheduled follow -up. Interim History: Mr. Kelly was most recently evaluated in our [facility] by Yari Garcia MD on 07/22/15. He is ok today, but feels a little beat up. Continues with c/o diffuse joint and muscle pain, improved from his original diagnosis but persistent. He continues to take oxycodone 5-10 mg po q3 hrs with relief. Mild nausea over the last few days, relieved with zofran and ativan. He feels his po intake is adequate, drinking adequate po fluids. Will eat food if it's placed in front of him but doesn't acti vely seek out food. OOB all day, eager to be more active but hampered by the weather. He bower s been going bowling on weekday mornings when the alley first opens, going to the [employer] in the morning. Went golfing over the weekend when the weather was nice. Review of Systems Constitutional: Positive for malaise/fatigue. Negative for fever and chills. HENT: Negative for headaches, congestion and sore throat. Respiratory: Negative for cough and shortness of breath. Cardiovascular: Negative for chest pain and leg swelling. Gastrointestinal: Positive for nausea (well controlled with prn antiemetics), abdominal nabeel n (over the weekend after eating a David sandwich with sauerkraut) and diarrhea (episode of loose/water stool over the weekend after the David sandwich). Negative for vomiting, blood in stool and melena. Genitourinary: Negative for dysuria and hematuria. Musculoskeletal: Positive for myalgias and joint pain. Skin: Negative for rash. Neurological: Positive for weakness (feels "beat up"). Negative for dizziness, tingling and tremors. All other systems reviewed and are negative. Current Outpatient Prescriptions Medication Sig acyclovir 800 mg oral tablet Take 1 tablet by mouth once daily. ALPRAZolam 0.5 mg oral tablet Take 2 tablets by mouth three times daily as needed for a nxiety. chlorhexidine 0.12 % mucous membrane mouthwash Take 15 mL by mouth three times daily. S wish undiluted oral rinse around in mouth for 30 seconds, then spit. Do not swallow. levofloxacin 500 mg oral tablet Take 1 tablet by mouth once daily. LORazepam 1 mg oral tablet Take 0.5-1 tablets by mouth every six hours as needed for an xiety (nausea or sleep,). ondansetron 4 mg oral tablet Take 1 to 2 tablets by mouth every twelve hours as needed for nausea/vomiting. oxyCODONE, immediate release, 5 mg oral tablet Take 1 to 2 tablets by mouth every three hours as needed. posaconazole DR 100 mg oral tablet,delayed release (DR/EC) Take 3 tablets by mouth once daily. prochlorperazine 5 mg oral tablet Take 1 tablet by mouth every six hours as needed for nausea/vomiting. Max dose: 40 mg/day sertraline (ZOLOFT) 25 mg oral tablet Take 1 tablet by mouth once daily. Indications: A nxiety with Depression No current facility-administered medications for this visit. Facility-Administered Medications Ordered in Other Visits Medication Dose Route Frequency Provider Last Rate Last Dose decitabine (DACOGEN) 42 mg in NaCl (PF) IV 20 mg/m2 (Treatment Plan Actual) intravenou s ONCE Yari Garcia MD 258.4 mL/hr at 07/28/15 1525 42 mg at 07/28/15 1525 diphenhydrAMINE (BENADRYL) capsule 25 mg 25 mg oral Q6H PRN Yari Garcia MD 25 mg at 07/28/15 1404 Allergies Allergen Reactions Chlorhexidine Towelette Rash PAVAN cloths Filed Vitals: 07/28/2015 3:05 PM Weight: 81.3 kg (179 lb 3.7 oz) BP: 136/70 Pulse: 92 Temp: 37 C (98.6 F) TempSrc: Oral Resp: 16 SpO2: 100% PainSc: 03 - Mild to Moderate PainLoc: Back (Lower) BMI: 22.71 kg/(m^2) Physical Exam Constitutional: He is well-developed, [...] rash noted. Psychiatric: Affect normal. Vitals reviewed. CVC: 2L PICC intact to LUE without erythema, induration Lab Results Component Value Date WBC 1.03 07/27/2015 HB 7.8 07/27/2015 HCT 22.1 07/27/2015 PLT 10 07/27/2015 MCV 80.4 07/27/2015 RDW 33.2 07/27/2015 Lab Results Component Value Date BICARB 27 07/27/2015 TBILI 0.6 07/27/2015 CA 9.1 07/27/2015 CL 104 07/27/2015 CR 1.1 07/27/2015 GLU 137* 07/27/2015 AP 68 07/27/2015 TP 7.1 07/27/2015 BUN 12 07/27/2015 ALB 3.8 07/27/2015 AST 24 07/27/2015 NA 139 07/27/2015 K 4.1 07/27/2015 ALT 33 07/27/2015 Assessment/Plan: 1. 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 His most recent marrow studies completed 07/08/15 after standard (3+7) induction and HAM reinduction showed a hypocellular marrow (15%) with ~80% bl asts/promonocytes c/w residual disease. Blast immunophenotype (10% by flow): dim CD13, CD33 , CD34, variable CD56, variable CD117, and dim [id number]; promonocyte immunophenotype ( 70% by flow): CD11b, CD13, CD14, variable CD16, CD33, variable CD56, CD64, and HLA-DR- posit mickey. Cytogenetic and FISH studies remained normal, Genetrails pending. --> transfuse pph today to decrease risk of spontaneous bleeding --> T&C for 1 unit pRBCs for 07/30/15 --> continue to check CBC 2-3x/week --> maintain transfusion parameters: pRBCs for hct < 21%, pph for plts < 10; sooner prn 2. Infectious Disease: Afebrile without localizing s/s infection. He continues prophylact ic acyclovir an posaconazole along with levofloxacin for gram negative prophylaxis during hi s neutropenia. No oral pain. --> continue current antimicrobial therapy as ordered --> continue to monitor temp two to three times daily; pt reminded to call immediately for any temp > 100.4. --> continue peridex as prescribed 3. Fluid, Electrolyte and Nutrition: Pt feels he's eating well although less than his bas familia, drinking adequate fluids although mostly water. Appetite is fair, no taste disturban ce. Mild nausea, well controlled with zofran, ativan prn. His electrolytes are reviewed an d are within acceptable limits. --> continue to eat meals as able with easy snacks available in between meals --> maintain hydration 4. Follow up: --> RTC for labs, blood product support on 07/30/15 --> RTC to f/u with Yari Garcia MD on 08/02/15, sooner prn ORLY Yanes [facility] [address] Mailcode: [id number] [place] [address] documented in this enc ounter Plan of [...] Rd | | | | | | [place], [place] | | | | | | [address] | | | | | | [phone] | | | | | | | | +--------+---------+ + + + documented as of this encounter Visit Diagnoses + + | Diagnosis | + + | Acute myeloid leukemia (AML), M4 (HCC) - Primary | + + documented in this encounter
--- OUTSIDE RECORDS SUMMARY | ~2019-05-17 | XMS | Encounter Summary ---
Demographics + + + | Address | [address] | | | [place] [address] | + + + | Home Phone [...] Team Providers + +------+ + | Care Spring Inspector Name | Role | Phone | [...] Interventional | | | | | | [place] [facility] | | | | | | [address] | | | | | | [place], | | | | | | [place] [address] | | | | | | [phone] | | | +--------+ + + + [...] Rd | | | | | | [place], [place] | | | | | | [address] | | | | | | [phone] | | | | | | | [...] | | | | | | Primary molder operator: | | | | | | Aaron Lancaster MD | | | | | | [employer] Aircraft Mechanic attending | | | | | | molder operator: Rita | | | | | | [...] | | | | Insertion of 12 [place] | | | | | | 23cm [...] | | | | | | 14 [place] peel away | | | | | [...] | | | | | The 12 [place] | | | | | | triplelumen [...] | | | | vein. A 12 [place] triple | | | | | | [...] | | | | | | 12 [place] triple lumen | | | | | [...] | | | | | | RITA LACKEY MD | | | | | | [...] | | + +---------+ + + | [facility] DEPARTMENT OF | | | | | RADIOLOGY | | | | + +---------+ + + ORDERS OTHER (08/26/2015 12:00 AM PST) + + + | Narrative | Performed At | + + + | | | + + + documented in this encounter Visit Diagnoses Not on filedocumented in this encounter"
--- OUTSIDE RECORDS SUMMARY | ~2019-05-17 | XMS | Encounter Summary ---
Demographics + + + | Address | [address] | | | [place] [address] | + + + | Home Phone [...] Providers + +------+ + | Care Clerical Administrative Assistant Name | Role | Phone | [...] | | | | | achieved | [place], [place] | [id number] | | | | | remission | [address] | [facility] | | | | | | Phone: | [facility] | | | | | Procedures | [phone] | [place], [place] | | | | | Post BMT | Fax: | [address] | | | | | Auth to | [phone] | Phone: | | | | | included | | [phone] | | | | | facility, | | Fax: | | | | | diagnostics, | | [phone] | | | | | office | [...] lumen); Intravenous | | | | [id number] | | infusion (Magnesium) | | | | [place], | | | | | | [place] [address] | | | | | | [phone] | | | +--------+ + + + [...] Rd | | | | | | [place], [place] | | | | | | [address] | | | | | | [phone] | | | | | | | [...] [place] | [address] | [place], [place] | | | [facility] | [facility] | [address] | | | TESTS | | | [...] | + + + + + | [facility] | [address] | [place] [address] | | | SERVICES, CORE | WALLY [...] [facility] | [address] | [place] [address] | | | SERVICES, CORE | WALLY [...] | + + + + + | [facility] | [address] | [place] [address] | | | SERVICES, SPECIAL | PARK [...] [facility] | [address] | [place], [place] | | | [facility] | [address] | [address] | | | TESTS | | | [...]
--- OUTSIDE RECORDS SUMMARY | ~2019-05-17 | XMS | Encounter Summary ---
Demographics + + + | Address | [address] | | | [place] [address] | + + + | Home Phone [...] Team Providers + +------+ + | Care Newspaper Columnist Name | Role | Phone | + +------+ + | No Pcp Per Patient | PCP | Unavailable | + +------+ + Reason for Referral PROC - Dept/Practice Procedure (Urgent) +--------+--------+ + + + + | Status | Reason | Specialty | Diagnoses / | Referred By | Referred To | | | | | Procedures | Contact | Contact | +--------+--------+ + + + + | Closed | | Gastroenterol | Diagnoses | Cummins, | Gas Endo | | | | ogy | Nausea and | Aspen, ELECTRIC CAR OPERATOR | [address] | | | | | vomiting, | [address] | | | | | intractabili | [facility] | Mailcode: | | | | | ty of | Rd | [facility] | | | | | vomiting not | [facility] [place] | for Health | | | | | specified, | [address] | and Healing, | | | | | unspecified | Phone: | Building 2 | | | | | vomiting | [phone] | [place], [place] | | | | | type | Fax: | [address] | | | | | Procedures | [phone] | Phone: | | | | | CONSULT TO | | [phone] | | | | | GI PROCEDURE | | Fax: | | | | | UNIT: EGD | | [phone] | | | | | CONSULT TO | | | | | | | GI PROCEDURE | | | | | | | UNIT: | | | | | | | FLEXIBLE | | | | | | | SIGMOIDOSCOP | | | | | | | Y AZ UPPER | | | | | | | GI | | | | | | | ENDOSCOPY,BI | | | | | | | OPSY AZ | | | | | | | SIGMOIDOSCOP | | | | | | | Y,BIOPSY | | | +--------+--------+ + + + + Reason for Visit + + + | Reason | Comments | + + + | Nausea and vomiting | | + + + Office Visit - E/M Services (Routine) +--------+---------+ + + + + | Status | Reason | Specialty | Diagnoses / | Referred By | Referred To | | | | | Procedures | Contact | Contact | +--------+---------+ + + + + | Closed | Other | Hematology | Diagnoses | Cook, | [facility] | | | | Malignancy | 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, | [address] | [address] | | | | | not having | [address]ally [place] | Mailcode: | | | | | achieved | [place], [place] | [id number] | | | | | remission | [address] | [place] | | | | | | Phone: | Pavilion | | | | | Procedures | [phone] | [place], [place] | | | | | Post BMT | Fax: | [address] | | | | | Auth to | [phone] | Phone: | | | | | included | | [phone] | | | | | facility, | | Fax: | | | | | diagnostics, | | [phone] | | | | | office | | | | | | | visits and | | | | | | | surgery | | | +--------+---------+ + + + + Encounter Details +--------+---------+ + + + | Date | Type | Department | Care Team | Description | +--------+---------+ + + + | 10/09/ | Office | Center for | Aspen Cummins FNP | Nausea and vomiting, | | 2017 | Visit | Hematologic | [address] [facility] | intractability of | | | | Malignancies at | [facility] | vomiting not | | | | [facility] | [place], [place] | specified, | | | | [address] [facility] | [address] | unspecified vomiting | | | | Wally Mailcode: | [phone] | type (Primary Dx) | | | | [facility] [place] | | | | | | Pavilion [place], | | | | | | [place] [address] | | | | | | [phone] | | | +--------+---------+ + + + [...] + + + | Blood Pressure | 140/90 | 10/09/2016 11:58 AM | | | | | PDT | | + + + + + | Pulse | 100 | 10/09/2016 11:58 AM | | | | | PDT | | + + + + + | Temperature | 36.7 C (98.1 F) | 10/09/2016 11:35 AM | | | | | PDT | | + + + + + | Respiratory Rate | 20 | 10/09/2016 11:58 AM | | | | | PDT | | + + + + + | Oxygen Saturation | 100% | 10/09/2016 11:58 AM | | | | | PDT | | + + + + + | Inhaled Oxygen | - | - | | | Concentration | | | | + + + + + | Weight | 73.5 kg (162 lb 0.6 | 10/09/2016 11:35 AM | | | | oz) | PDT | | + + + + + | Height | - | - | | + + + + + | Body Mass Index | 20.25 | 09/20/2016 10:53 AM | | | | | PDT | | + + + + + documented in this encounter Progress Notes Aspen Cummins, ORLY - 10/09/2016 11:45 AM PDT 10/09/2016 [facility] Primary [facility]M MD: Yari Garcia MD Primary Oncologist: Yari Garcia MD Diagnosis: AMML, 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 He was evaluated at [facility] ED on 06/[address] angiogram negative [...] CD34, variable CD56, variable CD117, and dim SL517-wphfn mickey; promonocyte immunophenotype (70% by flow): CD11b, [...] total hip arthroplasty. He is currently day +409 s/p transplant, s/p 6 cycles of azacitidine and returns to clinic today for scheduled follow-up. Interim History: Khurram was most recently evaluated in our [facility] by me on 10/02/16. States he has had some nausea intermittently since his last marrow on 08/31/16. Overall better, eating well and OOB most of the day. Last night ~2300 he developed rapid onset N/V. Could not tolerate po fluid intake nor antiemetics; vomited ever ything back up. No one else at home is sick, everyone ate the same food. Denies F/S but not es intermittent chills, "hair on my body is standing up". Up until that time, he felt he wa s eating and drinking well. States he has been taking po Mg++ at home for sleep as recommended by his aunt. Poor sleep overnight. Does not feel his current medications help him sleep. He had planned to attend the AYA support group last week. Advertised as being on the 3rd ak oor but was actually on the 9[facility] floor of [facility]. While he was waiting in the wrong location, jazlyn barrera met another AYA survivor [24yo woman with hx of brain tumor]. He f/u'd with the support kathleen barry organizer, is planning to attend the next group meeting. Review of Systems Constitutional: Positive for malaise/fatigue. Negative for chills and fever. HENT: Negative for headaches, congestion and sore throat. Respiratory: Negative for cough and shortness of breath. Cardiovascular: Negative for chest pain and leg swelling. Gastrointestinal: Positive for nausea and vomiting. Negative for abdominal pain, blood in s tool, diarrhea (looser stools related to po Mg which he is taking for sleep (recommended by his aunt)) and melena. Genitourinary: Negative for dysuria and hematuria. Musculoskeletal: Negative for myalgias. Skin: Positive for rash. Negative for itching. Neurological: Positive for dizziness (postural lightheadedness). Negative for tingling, carson mors and weakness. All other systems reviewed and are negative. Current Outpatient Prescriptions Medication Sig acetaminophen 325 mg oral tablet Take 1-2 tablets by mouth every four hours as needed. Use this medication to help wean off your stronger opiate medication. DO NOT exceed 4000 mg in a 24 hr period. Indications: Pain (Patient not taking: Reported on 10/09/2016) acyclovir 800 mg oral tablet Take 1 tablet by mouth two times daily. ALPRAZolam 0.5 mg oral tablet Take 1 tablet by mouth three times daily as needed. Indic ations: Anxiety aspirin EC 325 mg oral tablet,delayed release (DR/EC) Take 1 tablet by mouth once daily . Indications: post-op DVT prevention (Patient not taking: Reported on 10/09/2016) beclomethasone 1 mg/mL oral suspension (compound) Take 1 mL by mouth four times daily. Shake well and refrigerate. Please give 24 hours notice to compound medication. Discard afte r 14 days. (Patient not taking: Reported on 10/09/2016) mycophenolate delayed release 360 mg oral tablet,delayed [...] Route Frequency Provider Last Rate Last Dose ondansetron (ZOFRAN) injection 4 mg 4 mg intravenous ONCE ORLY Yanes sodium chloride 0.9% IV infusion 1,000 mL intravenous ONCE ORLY Yanes No Known Allergies Filed Vitals: 10/09/2016 11:35 AM 10/09/2016 11:50 AM Weight: 73.5 kg (162 lb 0.6 oz) BP: 134/85 124/86 Pulse: 70 61 Temp: 36.7 C (98.1 F) TempSrc: Oral Resp: 20 18 SpO2: 100% 100% PainSc: 01 - None to Mild BMI: 20.25 kg/(m^2) Physical Exam Constitutional: Thin CM in [...] no guarding. Musculoskeletal: He exhibits no edema. Neurological: He is alert. Skin: Skin is warm and dry. Psychiatric: Mood and affect normal. Vitals reviewed. Lab Results Component Value Date WBC 6.9 10/09/2016 HB 12.4 10/09/2016 HCT 35.7 10/09/2016 PLT 304 10/09/2016 MCV 90.8 10/09/2016 RDW 46.1 10/02/2016 Lab Results Component Value Date BICARB 24 10/09/2016 TBILI 0.6 10/09/2016 CA 9.1 10/09/2016 CL 103 10/09/2016 CR 0.8 10/09/2016 GLU 110 (H) 10/09/2016 AP 91 10/09/2016 TP 6.8 10/09/2016 BUN 12 10/09/2016 ALB 4.0 10/09/2016 AST 36 10/09/2016 NA 136 10/09/2016 K 3.8 10/09/2016 ALT 37 10/09/2016 Assessment/Plan: Khurram Kelly is currently day +409 s/p tBuCy-conditioned unrelated donor PBSC transplant for [...] he was seen in the ED in [place] in late 01/21 . Prednisone was increased [...] increased to 720 mg po BID on 10/02/16 Pt presents today with c/o persistent nausea, intractable vomiting over the last 12 hours. He tried taking zofran and compazine, unable to tolerate oral medications or oral intake sin ce last PM. Despite report of good po intake, he continues to lose weight. He has lost 50# since . His electrolytes and renal function are reviewed and are within acceptable limits. He received Zofran 4 mg IV with minimal effect. Then received compazine 10 mg IV. Able to t olerate po fluid intake without recurrent nausea. Rapid onset vomiting most c/w a viral gas troenteritis, however chronic nausea concerning for GvHD. Plan: 1. 1L NS IVPB in clinic today 2. Urgent referral to GI for EGD to r/o GvHD in the setting of chronic nausea, new onset v omiting 3. Continue tacrolimus, MMF as prescribed 4. Prednisone 20 mg po daily 5. Continue to push fluids to at least 2L calorie containing fluids per day 6. RTC to f/u with Yari Garcia MD on , 10/12/16 as scheduled or sooner prn 7. Advised pt/ to contact our service should vomiting recur, pt unable to tolerate po intake or meds ORLY Yanes [facility] [address] Mailcode: [id number] [address] documented in this en counter [...] Rd | | | | | | [place], [place] | | | | | | [address] | | | | | | [phone] | | | | | | | | +--------+---------+ + + + documented as of this encounter Results CMP, POC (BMP+LFT) (10/09/2016 [...] - MARQUAM | [address] | [place], [place] | | | RUTHIE CARTER OF KRISTA | [facility] | [address] | | | TESTS | | | [...] | | | | | g/dL | MARQU[place]WIN | | | | | [...] | | | | | 10*3/uL | [place] | | | | | | RUTHIE [...] SORTO | [address] | [place], [place] | | | EMMA POINT OF CARE | [address] | [address] | | | TESTS | | | [...] [facility] | [address] | [place] [address] | | | SERVICES, CORE | [address] | | | + + + + + documented in this encounter Visit Diagnoses + + | Diagnosis | + + | Nausea and vomiting, intractability of vomiting not specified, unspecified vomiting | | type - Primary | + + documented in this encounter
--- OUTSIDE RECORDS SUMMARY | ~2019-05-17 | XMS | Encounter Summary ---
Demographics + + + | Address | [address] | | | [place] [address] | + + + | Home Phone [...] Providers + +------+ + | Care Clinical Neuropsychologist Name | Role | Phone | + [...] cell transplant | | | | at [facility] 3rd Floor | | ([facility]) | | | | [address] | | | | | | [place]ally [place], | | | | | | [place] [address] | | | | | | [phone] | | | +--------+------+ + + + [...] Rd | | | | | | [place], [place] | | | | | | [address] | | | | | | [phone] | | | | | | | [...] the | | | | PDT | ([facility]) | results section. | + +--------+ + + + | [facility] - COMPLETE | Routin | 11/18/2018 | Hx of allogeneic | Results for this | | METABOLIC SET | e | 10:07 AM | stem cell transplant | procedure are in the | | | | PDT | ([facility]) | results section. [...] + | [facility] | [address] | [place] [address] | | | SERVICES, CORE | [address]ARK [...] | | | LABORATORY | | | THAI | | | SERVICES, | | | [...] | + + + + + | [facility] | [address] | [place] [address] | | | SERVICES, CORE | [address] | | | + + + + + documented in this encounter Visit Diagnoses + + | Diagnosis | + + | Hx of allogeneic stem cell transplant (HCC) | + + documented in this encounter"
--- OUTSIDE RECORDS SUMMARY | ~2019-05-17 | XMS | Encounter Summary ---
Demographics + + + | Address | [address] | | | [place] [address] | + + + | Home Phone [...] Providers + +------+ + | Care Boat Outboard Engine Mechanic Name | Role | Phone [...] | | | | bones of | [facility] | | | | | both hips | Rd | Rd [place], | | | | | ([facility]) | [place], [place] | [place] | | | | | Procedures | [address] | [address] | | | | | REQUEST TO | Phone: | Phone: | | | | | SURGERY | [phone] | [phone] | | | | | UNIVERSITY ADMINISTRATOR | Fax: | Fax: | | | | | [place] TOTAL HIP | [phone] | [phone] | | | | | | | [...] [address] | Janette Ruiz PA-C 0748 | of bone of left hip | | | | [address] | [facility] | (HCC) (Primary Dx); | | | | Mailcode: [id number] | [place], [place] | Status post total | | | | [facility] | [address] | replacement of left | | | | [place], [place] | [phone] | hip | | | | [address] | | | | | | [phone] | | | +--------+---------+ + + + [...] + documented in this encounter Progress Notes Jaentte Claire PA-C - 09/20/2016 10:45 AM PDTDX: [...] AP pelvis. Janette Das PA-C ORTHOPAEDICS AT [address] Mailcode: [id number] [place] [address] documented i n this encounter [...] Debi | | | | | | [place], [place] | | | | | | [address] | | | | | | [phone] | | | | | | | | +--------+---------+ + + + documented as of this encounter Visit Diagnoses + + | Diagnosis | + + | Avascular necrosis of bone of left hip (HCC) - Primary | + + | Status post total replacement of left hip | + + documented in this encounter
--- OUTSIDE RECORDS SUMMARY | ~2019-05-17 | XMS | Encounter Summary ---
Demographics + + + | Address | [address] | | | [place] [address] | + + + | Home Phone [...] Team Providers + +------+ + | Care Men'S Swim Coach Name | Role | Phone | + [...] | | | | | remission | [address] | [id number] | | | | | Procedures | Phone: | [place] | | | | | [place] | [phone] | Pavilion | | | | | AZACITIDINE | Fax: | [place], [place] | | | | | INJECTION, 1 | [phone] | [address] | | | | | MG [place] | | Phone: | | | | | CHM,IV | | [phone] | | | | | INFSN,1 HR | | Fax: | | | | | AL CHM,IV | | [phone] | | | | | INFSN,ADDL | [...] | | | | | | [facility] [place] | | | | | | [place], | | | | | | [place] [address] | | | | | | [phone] | | | +--------+ + + + [...] instructe d to check out at the supervisor front prior to leaving the clinic. Patient [...] 2018 | Visit | Malignancy | [address] [facility] | | | | | | [address] | | | | | | [place], [place] | | | | | | [address] | | | | | | [phone] | | | | | | | [...]
--- OUTSIDE RECORDS SUMMARY | ~2019-05-17 | XMS | Encounter Summary ---
Demographics + + + | Address | [address] | | | [place] [address] | + + + | Home Phone [...] Team Providers + +------+ + | Care Sanitation Tank Washer Name | Role | Phone | + [...] | | | | | achieved | [place], [place] | [facility] | | | | | remission | [address] | [place] | | | | | | Phone: | Asha | | | | | Procedures | [phone] | [place], [place] | | | | | Post BMT | Fax: | [address] | | | | | Auth to | [phone] | Phone: | | | | | included | | [phone] | | | | | facility, | | Fax: | | | | | diagnostics, | | [phone] | | | | | office | [...] Barry | | | | | | [address] | | | | | | [place]bi Burger Mailcode: | | | | | | [facility] | | | | | | [place], | | | | | | [place] [address] | | | | | | [phone] | | | +--------+ + + + [...] 2019 | Visit | Malignancy | [address] [facility] | | | | | | [address] | | | | | | [place], [place] | | | | | | [address] | | | | | | [phone] | | | | | | | [...] MARQUAM | | | | | | MEMA [...] - MACARIO | [address] | [place], [place] | | | RUTHIE CARTER OF CARE | [facility] | [address] | | | TESTS | | | [...] SORTO | [address] | [place], [place] | | | EMMA POINT OF CARE | [address] | [address] | | | TESTS | | | [...] LABORATORY | [address] | [place] [address] | | | SERVICES, CORE | PARK [...]
--- OUTSIDE RECORDS SUMMARY | ~2019-05-17 | XMS | Encounter Summary ---
Demographics + + + | Address | [address] | | | [place] [address] | + + + | Home Phone [...] Providers + +------+ + | Care Wholesale Manager Name | Role | Phone | [...] | | | | | Immunocompro | [address] | | | | | mised state | [address] | Fab | | | | | associated | [place]bi [place] | Kadeem | | | | | with stem | [place], [place] | [place] | | | | | cell | [address] | [address] | | | | | transplant | Phone: | Phone: | | | | | ([facility]) S/P | [phone] | [phone] | | | | | allogeneic | Fax: | Fax: | | | | | bone marrow | [phone] | [phone] | | | | | transplant | | | | | | | ([facility]) Red | | | | | [...] | | | | Christian Barry | [place], [place] | | | | | [address] | [address] | | | | | [address] Mailcode: | [phone] | | | | | [facility] | | | | | | [place], | | | | | | [place] [address] | | | | | | [phone] | | | +--------+ + + + [...] | | | | | | [place], [place] | | | | | | [address] | | | | | | [phone] | | | | | | | [...]
--- OUTSIDE RECORDS SUMMARY | ~2019-05-17 | XMS | Encounter Summary ---
Demographics + + + | Address | [address] | | | [place] [address] | + + + | Home Phone [...] Providers + +------+ + | Care Wheel Braider Name | Role | Phone | + [...] | | | | | | [facility]a [facility] | | | | | | [place] [address] | | | | | | [phone] | | | +--------+ + + + [...] Rd | | | | | | [place], [place] | | | | | | [address] | | | | | | [phone] | | | | | | | [...] MARQUAM | [address] | [place], [place] | | | RUTHIE CARTER OF KRISTA | [address] | [address] | | | TESTS | | | [...] SORTO | [address] | [place], [place] | | | EMMA POINT OF CARE | [address] | [address] | | | TESTS | | | [...] YESSICA LOZA | [address] | [place] [address] | | | SERVICES, INDRA | [address] [...]
--- OUTSIDE RECORDS SUMMARY | ~2019-05-17 | XMS | Encounter Summary ---
Demographics + + + | Address | [address] | | | [place] [address] | + + + | Home Phone [...] Team Providers + +------+ + | Care Television Mechanic Name | Role | Phone | [...] | | | 2019 | Event | [facility] | [address] | | | | | Admitting Desk | [place], | | | | | Located on the 9 | [place] [address] | | | | | floor [address] [place] [address] | [phone] | | | | | [address] | | | | | | [place], [place] | | | | | | [address] | | | +--------+ + + + [...] Visit | Malignancy | [address] [facility] | | | | | | [address] | | | | | | [place], [place] | | | | | | [address] | | | | | | [phone] | | | | | | | [...] TECHNOLOGY | | | USED Technology used: [employer]alaha technique PLACEMENT Needle | | | Type: [...] PDT | | | | | Until [facility] 12/19/18 at 1105 | | | [...]
--- OUTSIDE RECORDS SUMMARY | ~2019-05-17 | XMS | Encounter Summary ---
Demographics + + + | Address | [address] | | | [place] [address] | + + + | Home Phone [...] Team Providers + +------+ + | Care Aircraft Structural Design Engineer Name | Role | Phone | [...] | | | | | | Tao [place], | | | | | | | [place] | | | | | | | [address] | | | | | | | Phone: | | | | | | | [phone] | | | | | | | Fax: | | | | | | | [phone] | +--------+--------+ + + + + Encounter [...] | | | | | | [facility] [place] | | | | | | [place], | | | | | | [place] [address] | | | | | | [phone] | | | +--------+ + + + [...] Rd | | | | | | [place], [place] | | | | | | [address] | | | | | | [phone] | | | | | | | [...] | | | PST | ([facility]) | results section. 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 | + +--------+ + + + | CMP, POC (BMP+LFT) | Routin | 08/02/2015 | Acute myeloid | Results for this | | | e | 11:19 AM | leukemia (AML), M4 | procedure are in the | | | | PST | ([facility]) | results section. | + +--------+ + + + | CBC+DIFF,POC | Routin | 08/02/2015 | Acute myeloid | Results for this | | | e | 11:18 AM | leukemia (AML), M4 | procedure are in the | | | | PST | ([facility]) | results section. | + +--------+ + + + | ANTIBODY SCREEN | Routin | 08/02/2015 | Acute myeloid | Results for this | | | e | 10:52 AM | leukemia (AML), M4 | procedure are in the | | | | PST | ([facility]) | results section. | + +--------+ + + + | TYPE AND SCREEN | Routin | 08/02/2015 | Acute myeloid | Results for this | | | e | 10:52 AM | leukemia (AML), M4 | procedure are in the | | | | PST | ([facility]) | results section. | + +--------+ + + + | ABO & RH TYPE | Routin | 08/02/2015 | Acute myeloid | Results for this | | | e | 10:52 AM | leukemia (AML), M4 | procedure are in the | | | | PST | ([facility]) | results section. | + +--------+ + + + | LDH TOTAL, PLASMA | Routin | 08/02/2015 | Acute myeloid | Results for this | | | e | 10:52 AM | leukemia (AML), M4 | procedure are in the | | | | PST | ([facility]) | results section. | + +--------+ + [...] + + + + | PRODUCT | [id number] | | [facility] | | | UNIT [...] + + + + | EXPIRATION | [id number] | | [facility] | | | DATE [...] + + + + | BLOOD | [id number] | | [facility] | | | PRODUCT [...] | + + + + + | [facility] [place] | [address] | [place] [address] | | | PATHOLOGY | [address] [...] + + + + | PRODUCT | [id number] | | [facility] | | | UNIT [...] + + + + | EXPIRATION | [id number] | | [facility] | | | DATE [...] + + + + | BLOOD | [id number] | | [facility] | | | PRODUCT [...] | + + + + + | [facility] | [address] | [place] [address] | | | PATHOLOGY | [address] [...] - MACARIO | [address] | [place], [place] | | | RUTHIE CARTER OF CARE | [facility] | [address] | | | TESTS | | | [...] | YESSICA SORTO | [address] | [place], [place] | | | EMMA POINT OF CARE | [facility] | [address] | | | TESTS | | | [...] [facility] | [address] | [place] [address] | | | SERVICES, | [address] [...] [facility] | [address] | [place] [address] | | | SERVICES, | [address] [...] | + + + + + | [facility] | [address] | [place] [address] | | | SERVICES, CORE | [address] [...]
--- OUTSIDE RECORDS SUMMARY | ~2019-05-17 | XMS | Encounter Summary ---
Demographics + + + | Address | [address] | | | [place] [address] | + + + | Home Phone [...] Team Providers + +------+ + | Care Cigar Bander Name | Role | Phone | [...] [address] | | | | | [facility] | [place], [place] | | | | | [address] | [address] | | | | | Debi Mailcode: | [phone] | | | | | [facility] [address] | | | | | | [facility] [place], | | | | | | [place] [address] | | | | | | [phone] | | | +--------+ + + + [...] Rd | | | | | | [place] | | | | | | [address] | | | | | | [phone] | | | | | | | | +--------+---------+ + + + documented as of this encounter Visit Diagnoses Not on filedocumented in this encounter"
--- OUTSIDE RECORDS SUMMARY | ~2019-05-17 | XMS | Encounter Summary ---
Demographics + + + | Address | [address] | | | [place] [address] | + + + | Home Phone [...] Team Providers + +------+ + | Care Insurance Plan Specialist Name | Role | Phone | [...] Barry | | | | | | [address] | | | | | | Debi Burger Mailcode: | | | | | | [facility] [place] | | | | | | [place], | | | | | | [place] [address] | | | | | | [phone] | | | +--------+ + + + [...] Rd | | | | | | [place], [place] | | | | | | [address] | | | | | | [phone] | | | | | | | [...] + + | [facility] | [address] | [place], [place] | | | RUTHIE CARTER OF CARE | [address] | [address] | | | TESTS | | | [...] SORTO | 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
--- OUTSIDE RECORDS SUMMARY | ~2019-05-17 | XMS | Encounter Summary ---
Demographics + + + | Address | [address] | | | [place] [address] | + + + | Home Phone [...] Team Providers + +------+ + | Care Plywood Factory Worker Name | Role | Phone | + +------+ + | Pending Pcp Addition | PCP | Unavailable | + +------+ + Reason for Visit + + + | Reason | Comments | + + + | Transplant | LIT HLA Recipient | + + + Encounter Details +--------+ + + + + | Date | Type | Department | Care Team | Description | +--------+ + + + + | 06/28/ | Documentati | Kidney Transplant | Luis Carlos Sanders, | Transplant (LIT HLA | | 2015 | on | at [facility] | MD [address] | Recipient) | | | | [address] | [address] | | | | | Debi Burger Mailcode: | [place], [place] | | | | | [address] | [address] | | | | | [address] | [phone] | | | | | [place], [place] | | | | | | [address] | | | | | | [phone] | | | +--------+ + + + [...] Rd | | | | | | [place], [place] | | | | | | [address] | | | | | | [phone] | | | | | | | | +--------+---------+ + + + documented as of this encounter Visit Diagnoses Not on filedocumented in this encounter"
--- OUTSIDE RECORDS SUMMARY | ~2019-05-17 | XMS | Encounter Summary ---
Demographics + + + | Address | [address] | | | [place] [address] | + + + | Home Phone [...] Team Providers + +------+ + | Care Braid Cutter Name | Role | Phone | [...] | | | | | | [place], | | | | | | | [place] | | | | | | | [address] | | | | | | | Phone: | | | | | | | [phone] | | | | | | | Fax: | | | | | | | [phone] | +--------+--------+ + + + + Encounter Details +--------+ + + + + | Date | Type | Department | Care Team | Description | +--------+ + + + + | 03/30/ | Clinical | Center for | | Lab Draw (PIV) | | 2016 | Support | Hematologic | | | | | Staff | Malignancies at [facility] | | | | | | [address] | | | | | | Wally Burger Mailcode: | | | | | | [facility] | | | | | | [place], | | | | | | [place] [address] | | | | | | [phone] | | | +--------+ + + + [...] Rd | | | | | | [place], [place] | | | | | | [address] | | | | | | [phone] | | | | | | | [...] ([facility]) | results section. | | | | | Acute myeloid | | | | | | leukemia (AML), M4 | | | | | | ([facility])- primary | | | | | | induction failure | | + +--------+ + + + | CBC+DIFF,POC | Routin | 03/30/2016 | S/P allogeneic | Results for this | | | e | 10:11 AM | bone marrow | procedure are in the | | | | PDT | transplant ([facility]) | results section. | | | | | Acute myeloid | | | | | | leukemia (AML), M4 | | | | | | ([facility])- primary | | | | | | induction failure | | + +--------+ + + + | CMV PCR | Routin | 03/30/2016 | S/P allogeneic | Results for this | | QUANTITATION, PLASMA | e | 9:30 AM | bone marrow | procedure are in the | | | | PDT | transplant ([facility]) | results section. | | | | | Acute myeloid | | | | | | leukemia (AML), M4 | | | | | | ([facility])- primary | | | | [...] | BEACON | | PDT | ([facility])- primary | | | | [...] | | | | PDT | ([facility])- primary | | | | [...] MACARIO | [address] | [place], [place] | | | CHAYO CARTER | [facility] | [address] | | | TESTS | | | [...] SORTO | [address] | [place], [place] | | | [facility] POINT OF CARE | [address] | [address] | | | TESTS | | | [...] | + + + + + | [facility] | [address] | [place] [address] | | | SERVICES, CORE | WALLY [...] 2 fold may not reflect true | [facility] | | biological changes and must be [...] | | | characteristics determined by the [facility] | | | Molecular Diagnostic Center. It has not been cleared or approved by | | | the Food and Drug Administration. FDA approval is not required for | | | clinical use of this test, and therefore validation was done as | | | required under the requirements of the Clinical Laboratory Improvement | | | Act of 1988. The [facility] Molecular | | | Diagnostic Center is a fully licensed and/or accredited clinical | | | laboratory under CLIA, CAP, and the [facility]. | | + + + + + + + + | Performing | Address | City/State/Zipcode | Phone Number | | Organization | | | | + + + + + | [facility] | [address] | [place] [address] | | | DIAGNOSTIC | [address] [...]
--- OUTSIDE RECORDS SUMMARY | ~2019-05-17 | XMS | Encounter Summary ---
Demographics + + + | Address | [address] | | | [place] [address] | + + + | Home Phone [...] Providers + +------+ + | Care Hot Iron Worker Name | Role | Phone [...] | | | [address] | [address] | | | | | Debi Burger Mailcode: | [phone] | | | | | [facility] [address] | | | | | | [place], | | | | | | [place] [address] | | | | | | [phone] | | | +--------+--------+ + + + [...] Rd | | | | | | [place] | | | | | | [address] | | | | | | [phone] | | | | | | | | +--------+---------+ + + + documented as of this encounter Visit Diagnoses Not on filedocumented in this encounter"
--- OUTSIDE RECORDS SUMMARY | ~2019-05-17 | XMS | Encounter Summary ---
Demographics + + + | Address | [address] | | | [place] [address] | + + + | Home Phone [...] Team Providers + +------+ + | Care Fly Tier Name | Role | Phone | + [...] | | | | Christian Barry | [place], [place] | | | | | [address] | [address] | | | | | Debi Burger Mailcode: | [phone] | | | | | [facility] [address] | | | | | | [place], | | | | | | [place] [address] | | | | | | [phone] | | | +--------+--------+ + + + [...] | Visit | Malignancy | [address] | | | | | | [address] | | | | | | [place] | | | | | | [address] | | | | | | [phone] | | | | | | | | +--------+---------+ + + + documented as of this encounter Visit Diagnoses Not on filedocumented in this encounter"
--- OUTSIDE RECORDS SUMMARY | ~2019-05-17 | XMS | Encounter Summary ---
Demographics + + + | Address | [address] | | | [place] [address] | + + + | Home Phone [...] Providers + +------+ + | Care Casino Beverage Server Name | Role | Phone | [...] | 2016 | | Hematologic | [address] [facility] | | | | | Malignancies at | [address] | | | | | Christian Barry | [place], [place] | | | | | [address] | [address] | | | | | Debi Burger Mailcode: | [phone] | | | | | [facility] [address] | | | | | | [place], | | | | | | [place] [address] | | | | | | [phone] | | | +--------+--------+ + + + [...] Rd | | | | | | [place] | | | | | | [address] | | | | | | [phone] | | | | | | | | +--------+---------+ + + + documented as of this encounter Visit Diagnoses Not on filedocumented in this encounter"
--- OUTSIDE RECORDS SUMMARY | ~2019-05-17 | XMS | Encounter Summary ---
Demographics + + + | Address | [address] | | | [place] [address] | + + + | Home Phone [...] Team Providers + +------+ + | Care General Warehouse Worker Name | Role | Phone | [...] | | | | | | [place], | | | | | | [place] [address] | | | | | | [phone] | | | +--------+ + + + [...] | | | | | | [place], [place] | | | | | | [address] | | | | | | [phone] | | | | | | | | +--------+---------+ + + + documented as of this encounter Visit Diagnoses Not on filedocumented in this encounter"
--- OUTSIDE RECORDS SUMMARY | ~2019-05-17 | XMS | Encounter Summary ---
Demographics + + + | Address | [address] | | | [place] [address] | + + + | Home Phone [...] Providers + +------+ + | Care Computer Systems Security Analyst Name | Role | Phone | + +------+ + | Zayda Hinton | PCP | | + +------+ + Encounter Details +--------+ + + + + | Date | Type | Department | Care Team | Description | +--------+ + + + + | 10/06/ | Pharmacy | Specialty Pharmacy | | | | 2015 | Visit | Services [address] | | | | | | [address] | | | | | | [place], [place] | | | | | | [address] | | | | | | [phone] | | | +--------+ + + + [...] 2019 | Visit | Malignancy | [address] [facility] | | | | | | [address] | | | | | | [place], [place] | | | | | | [address] | | | | | | [phone] | | | | | | | | +--------+---------+ + + + documented as of this encounter Visit Diagnoses Not on filedocumented in this encounter"
--- OUTSIDE RECORDS SUMMARY | ~2019-05-17 | XMS | Encounter Summary ---
Demographics + + + | Address | [address] | | | [place] [address] | + + + | Home Phone [...] Providers + +------+ + | Care Manager Spanish Name | Role | Phone | + [...] | | | | | | [place], | | | | | | | [place] | | | | | | | [address] | | | | | | | Phone: | | | | | | | [phone] | | | | | | | Fax: | | | | | | | [phone] | +--------+--------+ + + + + Encounter [...] (HCC) (Primary Dx) | | | | [facility] | [place], [place] | | | | | [address] | [address] | | | | | Debi Burger Mailcode: | [phone] | | | | | [facility] | | | | | | [place], | | | | | | [place] [address] | | | | | | [phone] | | | +--------+---------+ + + + [...] MM URD (DPB1 permissive antigen mismatch, male, 5951-0525-2) Identifying Data: Khurram Kelly is a 25 [...] his L ankle. He was evaluated at [facility] ED on 06/[address] angiogram [...] CD34, variable CD56, variable CD117, and dim QH023-uwzxh mickey; promonocyte immunophenotype (70% by flow): CD11b, [...] box [facility] to the [facility] on 04[facility]16[facility]16. Review of Systems Constitutional: Negative [...] marrow studies after c6 of azacitidine 2. Mwisd-ff-Fgyw Disease: Skin bx due to mild rash [...] he was seen in the ED in [place] in late 01/21. Prednisone was increased back [...] [facility] AT [address] Mailcode: [place] [address] documented in this enc ounter [...] Rd | | | | | | [place], [place] | | | | | | [address] | | | | | | [phone] | | | | | | | | +--------+---------+ + + + documented as of this encounter Visit Diagnoses + + | Diagnosis | + + | 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
--- OUTSIDE RECORDS SUMMARY | ~2019-05-17 | XMS | Encounter Summary ---
Demographics + + + | Address | [address] | | | [place] [address] | + + + | Home Phone [...] Providers + +------+ + | Care Fagot Maker Name | Role | Phone | [...] | | | | | achieved | [facility] [place] | [facility] | | | | | remission | [address] | [facility] | | | | | | Phone: | [facility]ilion | | | | | Procedures | [phone] | [place], [place] | | | | | Post BMT | Fax: | [phone] | | | | | Auth to | [phone] | Phone: | | | | | included | | [phone] | | | | | facility, | | Fax: | | | | | diagnostics, | | [phone] | | | | | office | [...] | Visit | Hematologic | PA-C [address] [facility] | leukemia (AML), M4 | | | | Malignancies at | [address] | ([facility])- primary | | | | [facility] | [place], [place] | induction failure | | | | [address] [facility] | [address] | (Primary Dx); S/P | | | | [address] Mailcode: | [phone] | allogeneic bone | | | | [facility] | | marrow transplant | | | | [facility] [place], | | ([facility]) | | | | [place] [address] | | | | | | [phone] | | | +--------+---------+ + + + [...] 0.1% cream has been sent to the [facility] pharmacy in [facility]. documented in this encounter Progress Notes Em Saunders PA-C - 09/21/2015 5:21 PM PDTFormatting of this note might be different f rom the original. 09/21/2015 [facility] Physician: Yari Garcia MD Local Oncologist: Yari Garcia MD PCP: Pending Pcp ADDITION Hematologic Malignancy: Primary refractory AML Conditioning regimen: tBuCy Date of transplant: 08/27/2015 (two day 0s) Donor: MM URD (DPB1 permissive antigen mismatch, male, 5400-1895-2) Hematologic History: Khurram Kelly is a 25 y.o. CM with a PMH of pericarditis who was in his [facility] u ntil 03/13/15 (the night of his [...] his L ankle. He was evaluated at [facility] ED on 06/[address] angiogram [...] acute myelomonocytic leukemia. He was referred to [facility] for further evaluation and man agement of his newly dx'd AML. Pt was admitted to [facility] on 05/26/15. Peripheral blood was [...] CD34, variable CD56, variable CD117, and dim YM213-xwivc mickey; promonocyte immunophenotype (70% by flow): CD11b, [...] eruption of lymphocyte recovery and early mild ozhiv-oygmeo-xgtj disease. On 09/13, rash in volved ~15% [...] HEMATOLOGIC MALIGNANCIES AT [facility] [address] [facility] Mailcode: [place] [address] documented in this encounter Plan [...] 2018 | Visit | Malignancy | [address] [facility] | | | | | | [facility] | | | | | | [place], [place] | | | | | | [address] | | | | | | [phone] | | | | | | | [...] SORTO | [address] | [place], [place] | | | [facility] POINT OF CARE | [address] | [address] | | | TESTS | | | [...] | + + + + + | [facility] | [address] | [place] [address] | | | SERVICES, CORE | WALLY [...] [facility] | [address] | [place] [address] | | | SERVICES, CORE | PARK [...] | + + + + + | [facility] | [address] | [place] [address] | | | SERVICES, SPECIAL | WALLY [...] SORTO | [address] | [place], [place] | | | RUTHIE CARTER [place] | [address] | [address] | | | TESTS | | | [...]
--- OUTSIDE RECORDS SUMMARY | ~2019-05-17 | XMS | Encounter Summary ---
Demographics + + + | Address | [address] | | | [place] [address] | + + + | Home Phone [...] Team Providers + +------+ + | Care Strategic Marketing Associate Name | Role | Phone | + +------+ + | Zayda Hinton | PCP | | + +------+ + Encounter Details +--------+ + + + + | Date | Type | Department | Care Team | Description | +--------+ + + + + | 11/19/ | Documentati | [facility] | Sabrina Baez, | | | 2019 | on | [place] [facility] at | [address] | | | | | [address] | [address] | | | | | [address] | [place], [place] | | | | | Mailcode: [facility] | [address] | | | | | [facility] [place] | [phone] | | | | | [address] | | | | | | [phone] | | | +--------+ + + + [...] [place] | | | | | | [address] | | | | | | [phone] | | | | | | | | +--------+---------+ + + + documented as of this encounter Visit Diagnoses Not on filedocumented in this encounter"
--- OUTSIDE RECORDS SUMMARY | ~2019-05-17 | XMS | Encounter Summary ---
Demographics + + + | Address | [address] | | | [place] [address] | + + + | Home Phone [...] Team Providers + +------+ + | Care Master Esthetician Name | Role | Phone | + +------+ + | Zayda Hinton | PCP | | + +------+ + Encounter Details +--------+ + + + + | Date | Type | Department | Care Team | Description | +--------+ + + + + | 01/25/ | Pharmacy | Specialty Pharmacy | | | | 2015 | Visit | Services [address] | | | | | | [address] | | | | | | [place], [place] | | | | | | [address] | | | | | | [phone] | | | +--------+ + + + [...] | Visit | Malignancy | [address] [facility] | | | | | | [address] | | | | | | [place], [place] | | | | | | [address] | | | | | | [phone] | | | | | | | | +--------+---------+ + + + documented as of this encounter Visit Diagnoses Not on filedocumented in this encounter"
--- OUTSIDE RECORDS SUMMARY | ~2019-05-17 | XMS | Encounter Summary ---
Demographics + + + | Address | [address] | | | [place] [address] | + + + | Home Phone [...] Team Providers + +------+ + | Care Mental Health Aides Teacher Name | Role | Phone | [...] | 2018 | | Hematologic | [address] [facility] | | | | | Malignancies at | [address] [facility] | | | | | [address] | [place], [place] | | | | | [address] [facility] | [address] | | | | | [facility] Mailcode: | [phone] | | | | | [address] | | | | | | [place], | | | | | | [place] [address] | | | | | | [phone] | | | +--------+--------+ + + + [...] Rd | | | | | | [place] | | | | | | [address] | | | | | | [phone] | | | | | | | | +--------+---------+ + + + documented as of this encounter Visit Diagnoses Not on filedocumented in this encounter"
--- OUTSIDE RECORDS SUMMARY | ~2019-05-17 | XMS | Encounter Summary ---
Demographics + + + | Address | [address] | | | [place] [address] | + + + | Home Phone [...] Team Providers + +------+ + | Care Hop Farmer Name | Role | Phone | + [...] | | | | | achieved | [place], [place] | [facility] | | | | | remission | [address] | [place] | | | | | | Phone: | Pavilion | | | | | Procedures | [phone] | [place], [place] | | | | | Post BMT | Fax: | [address] | | | | | Auth to | [phone] | Phone: | | | | | included | | [phone] | | | | | facility, | | Fax: | | | | | diagnostics, | | [phone] | | | | | office | | | | | | | visits and | | | | | | | surgery | | | +--------+---------+ + + + + Encounter Details +--------+---------+ + + + | Date | Type | Department | Care Team | Description | +--------+---------+ + + + | 11/23/ | Office | Center for | Aspen Cummins FNP | S/P allogeneic bone | | 2017 | Visit | Hematologic | [address] [facility] | marrow transplant | | | | Malignancies at | [place] [address] | (HCC) (Primary Dx) | | | | [facility] | [place], [place] | | | | | [address] | [address] | | | | | [address] Mailcode: | [phone] | | | | | [facility] | | | | | | Pavilion [place], | | | | | | [place] [address] | | | | | | [phone] | | | +--------+---------+ + + + [...] + + + | Blood Pressure | 135/96 | 11/23/2016 10:17 AM | | | | | PDT | | + + + + + | Pulse | 87 | 11/23/2016 10:17 AM | | | | | PDT | | + + + + + | Temperature | 36.9 C (98.5 F) | 11/23/2016 10:17 AM | | | | | PDT | | + + + + + | Respiratory Rate | 16 | 11/23/2016 10:17 AM | | | | | PDT | | + + + + + | Oxygen Saturation | 100% | 11/23/2016 10:17 AM | | | | | PDT | | + + + + + | Inhaled Oxygen | - | - | | | Concentration | | | | + + + + + | Weight | 73.6 kg (162 lb 4.1 | 11/23/2016 10:17 AM | | | | oz) | PDT | | + + + + + | Height | - | - | | + + + + + | Body Mass Index | 20.28 | 10/18/2016 10:05 AM | | | | | PDT | | + + + + + documented in this encounter Patient Instructions Patient Instructions Aspen Cummins FNP - 11/23/2016 10:15 AM PDT1. We will call you this afternoon with any dose adjustment of your tacrolimus 2. Decrease prednisone to 20 mg by mouth every other day alternating with 15 mg by mouth e very other day 3. I've refilled your xanax and increased then number of pills you'll receive so you can t lola 1 mg by mouth three times daily. You shouldn't take more than that 4. Please call Transitions to schedule an appointment with a counselor. If you're coming back here to see us once a month, you can see your counselor then too 5. Lots of shots today! See the separate list for your vaccine record. Please update this every time you receive vaccines. 6. I'll ask Kezia Stokes LCSW to reach out to you about your Social Security disability 7. Return to clinic to follow up with Yari Garcia MD on , 12/07/16 or sooner as jan ded. 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 He was evaluated at [place] [facility] ED on 06/[address] angiogram negative [...] CD34, variable CD56, variable CD117, and dim XU140-eobhb mickey; promonocyte immunophenotype (70% by flow): CD11b, [...] total hip arthroplasty. He is currently day +454s/p transplant, s/p 6 cyclesof azacitidine [facility]. Interim History: Khurram was most recently evaluated in our [facility] by Yari Garcia MD on 11/09/16. Returned from a long weekend in [place]. Had a good visit with friends and felt like himself again. Played some basketball with friends, 2-on-2, and felt he could keep up but let himself become a little dehydrated in the heat. Vo mited after playing ball, felt much better afterwards. Appetite is ok, not quite as good as it had been. No other c/o N/V/D. Notes he ran out of xanax again about a week ago, notes in creased shakiness. States he's been taking 1 mg po TID however insurance will only fill onc e a month and he was not prescribed enough tablets to last him a full month. Excited about his upcoming retreat in [place] from 12/15-12/17/16. He's signed up for a s ession on parenting so he can answer his son's questions more easily, as well as a session r e: legal rights when he returns to work. Very eager to meet other cancer survivors of his ag e group. Has been talking with his about a counselor, agree that he is ready to start counseling. Would like to move home in mid-January so concerned about starting with a counselo r here and then moving. Not sure of resources that will accept his insurance in [place]. Review of Systems Constitutional: Negative for chills, fever and malaise/fatigue. HENT: Negative for headaches, congestion and sore throat. Eyes: Positive for blurred vision, discharge and redness (after using PFAT). Respiratory: Negative for cough and shortness of breath. Cardiovascular: Negative for chest pain and leg swelling. Gastrointestinal: Positive for vomiting (once, as above). Negative for abdominal pain, cons tipation, diarrhea and nausea. Genitourinary: Negative for dysuria. Musculoskeletal: Positive for joint pain (very mild hip pain). Negative for myalgias. Skin: Negative for rash. Neurological: Positive for tremors (since stopping xanax). Negative for dizziness, tingling and weakness. All [...] delayed release 360 mg oral tablet,delayed release (/EC) Take 2 tablets by mouth two times [...] this visit. No Known Allergies Filed Vitals: 11/23/2016 10:17 AM Weight: 73.6 kg (162 lb 4.1 oz) BP: 135/96 Pulse: 87 Temp: 36.9 C (98.5 F) TempSrc: Oral Resp: 16 SpO2: 100% PainSc: 01 - None to Mild PainLoc: Hip (Left) BMI: 20.28 kg/(m^2) Physical Exam Constitutional: Thin CM in [...] reviewed. Lab Results Component Value Date WBC 9.80 11/23/2016 HB 13.3 11/23/2016 HCT 39.3 11/23/2016 PLT 223 11/23/2016 MCV 94.5 11/23/2016 RDW 51.6 11/23/2016 Lab Results Component Value Date BICARB 26 11/23/2016 TBILI 0.4 11/23/2016 CA 9.5 11/23/2016 CL 105 11/23/2016 CR 0.77 11/23/2016 GLU 102 (H) 11/23/2016 AP 91 10/09/2016 TP 7.0 11/23/2016 BUN 10 11/23/2016 ALB 4.1 11/23/2016 AST 20 11/23/2016 NA 139 11/23/2016 K 3.5 11/23/2016 ALT 40 11/23/2016 Assessment/Plan: 1. Hematology: Khurram Kelly is currentlyday +454 s/p tBuCy-conditioned unre lated donor PBSC transplant [...] polymorphism of donor origin). CBC remains WNL wi th no evidence of disease by peripheral smear. 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 He initially responded but flared during taper. He also developed low-level nausea and abd discomfort concerning for GvHD, emp irically treated with oral non-absorbables with resolution. - He had tapered prednisone to 10 mg po daily when he developed a rash for which he was see n in the ED in [place] in late 01/21. Prednisone was increased back [...] this time aside from mild ocular irritation. Skin symptoms resolved -->adjust tacrolimus to maintain a trough level of 4-8 -->continuemycophenolate ER 720 mg po BID --> decrease prednisone 20 mg po every other day alt with 15 mg po every other day --> continue to f/u with ophthalmology per their recommendations 3. Infectious Disease: Afebrile without localizing s/s infection. He continues prophylact ic acyclovir and bactrim. Completed a 3-week course of fluconazole 400 mg po daily on 11/12/16 for findings of esophageal candidiasis His most recent immune reconstitution panel [facility] 08/31/16 showed normal total T cells with relative decrease in CD4+ margarita cells, normal total NK cells, normal total B cells with relative decrease in non-switched memory B cells a nd minimal immune activation. CD4 count 420. Over due for post-transplant vaccines -->continue prophylactic antimicrobials --> restart post-transplant vaccines today including PPV13, meningococcal conjugate x 2, Td ap, HiB, HepB, HPV and TwinRix --> pt provided with a vaccination record including past and present vaccines with recommen dations for future vaccines 4. Fluid, Electrolyte and Nutrition: Appetite has decreased since he's run out of xanax ~ 1 week ago. Feels he's still eating well with adequate po fluid intake. No c/o N/V/D except once after physical activity. Weight has decreased 4# in the last month. His electrolytes a re reviewed and are within acceptable limits. --> [...] one patient with minimal guidance from the casting machine service operator (not t he usual casting machine service operator). He is willing to give it another [...] establishing care here then moving back to [place]. States he is planning to come to [place] for f/u with us. -->continue to [...] provider there 7. Follow up -->RTC to f/u with Yari Garcia MD on , 12/07/16, sooner prn --> labs at [facility] prior [facility] AT V [address] [facility] Mailcode: [place] [phone] documented in this enc ounter Plan of [...] | 2018 | Visit | Malignancy | [address] [place] [address] | | | | | | [facility] | | | | | | [place], [place] | | | | | | [address] | | | | | | [phone] | | | | | | | | +--------+---------+ + + + documented as of this encounter Visit Diagnoses + + | Diagnosis | + + | 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
--- OUTSIDE RECORDS SUMMARY | ~2019-05-17 | XMS | Encounter Summary ---
Demographics + + + | Address | [address] | | | [place] [address] | + + + | Home Phone [...] Team Providers + +------+ + | Care Janitor Cleaner Name | Role | Phone | + +------+ + | Zayda Hinton | PCP | | + +------+ + Encounter Details +--------+ + + + + | Date | Type | Department | Care Team | Description | +--------+ + + + + | 12/06/ | Pharmacy | Specialty Pharmacy | | | | 2016 | Visit | Services [address] | | | | | | [address] | | | | | | [place], [place] | | | | | | [address] | | | | | | [phone] | | | +--------+ + + + [...] Rd | | | | | | [place], [place] | | | | | | [address] | | | | | | [phone] | | | | | | | | +--------+---------+ + + + documented as of this encounter Visit Diagnoses Not on filedocumented in this encounter"
--- OUTSIDE RECORDS SUMMARY | ~2019-05-17 | XMS | Encounter Summary ---
Demographics + + + | Address | [address] | | | [place] [address] | + + + | Home Phone [...] Providers + +------+ + | Care Service Consultant Name | Role | Phone | [...] | myelomonocyt | [address] | [address] | | | | | ic leukemia, | [address] | [address] | | | | | not having | [address] | Mailcode: | | | | | achieved | [facility] [place] [place] | [facility] | | | | | remission | [address] | [place] | | | | | | Phone: | Pavilion | | | | | Procedures | [phone] | [place], [place] | | | | | Post BMT | Fax: | [address] | | | | | Auth to | [phone] | Phone: | | | | | included | | [phone] | | | | | facility, | | Fax: | | | | | diagnostics, | | [phone] | | | | | office | | | | | | | visits and | | | | | | | surgery | | | +--------+---------+ + + + + Encounter Details +--------+---------+ + + + | Date | Type | Department | Care Team | Description | +--------+---------+ + + + | 09/29/ | Office | Center for | Saunders, Em L, | Acute myeloid | | 2016 | Visit | Hematologic | PA-C [address] [facility] | leukemia (AML), M4 | | | | Malignancies at | [address] | ([facility])- primary | | | | [facility] | [place], [place] | induction failure | | | | [address] [facility] | [address] | (Primary Dx); S/P | | | | [address] Mailcode: | [phone] | allogeneic bone | | | | [facility] [place] | | marrow transplant | | | | [facility] [place], | | ([facility]) | | | | [place] [address] | | | | | | [phone] | | | +--------+---------+ + + + [...] | Blood Pressure | 105/69 | 09/30/2015 8:52 AM | | | | | PDT | | + + + + + | Pulse | 78 | 09/30/2015 8:52 AM | | | | | PDT | | + + + + + | Temperature | 36.9 C (98.4 F) | 09/30/2015 8:52 AM | | | | | PDT | | + + + + + | Respiratory Rate | 18 | 09/30/2015 8:52 AM | | | | | PDT | | + + + + + | Oxygen Saturation | 98% | 09/30/2015 8:52 AM | | | | | PDT | | + + + + + | Inhaled Oxygen | - | - | | | Concentration | | | | + + + + + | Weight | 77 kg (169 lb 12.1 | 09/30/2015 8:52 AM | | | | oz) | PDT | | + + + + + | Height | - | - | | + + + + + | Body Mass Index | 21.94 | 08/18/2015 4:35 PM | | | | | PST | | + + + + + documented in this encounter Patient Instructions Patient Instructions Em Saunders PA-C - 09/30/2015 8:08 AM PDT-Take your temperature regularly (3-4 x daily) and to call immediately for a temperature of 100.4 or greater. -We'll call you to adjust your Tacrolimus if necessary. -Taper prednisone down to 30 mg once daily. documented in this encounter Progress Notes Em Saunders PA-C - 09/30/2015 5:46 PM PDTFormatting of this note might be different f rom the original. 09/30/2015 [facility] Physician: Yari Garcia MD Local Oncologist: Yari Garcia MD PCP: Pending Pcp ADDITION Hematologic Malignancy: Primary refractory AML Conditioning regimen: tBuCy Date of transplant: 08/27/2015 (two day 0s) Donor: MM URD (DPB1 permissive antigen mismatch, male, [id number]) Hematologic History: Khurram Kelly is a 25 [...] his L ankle. He was evaluated at [facility] ED on 06/[address] angiogram negative [...] CD34, variable CD56, variable CD117, and dim AX090-hcyxm mickey; promonocyte immunophenotype (70% by flow): CD11b, [...] of primary refractory AML, currently d ay +34, s/p tBuCy conditioned MM URD SCT. Interval History: presents to clinic today for his routine scheduled visit. He is accompanied by his who is his caregiver in clinic today. He continues to do well. His rash continue s to fade and is hardly visible on his thighs. He rash does not itch like before. He has not noticed a rash in any new areas. He continues to take Zofran BID, which is controlling his nausea and helping with taking his pills. He denies vomiting. He has a good appetite and is eating full meals with snacks. He is taking in 2L of fluids. His energy remains good and he has been active walking daily. Review of Systems: General: Denies fevers, chills, [...] as needed (constipation). TACROLIMUS 0.5 MG CAPSULE Dose changed 09/30/15: Take 1.5 mg in the AM and 1 mg in the PM TACROLIMUS 1 MG CAPSULE Dose changed 09/30/15: Take 1.5 mg in the AM and 1 mg in the PM I ndications: GVHD prevention TRIAMCINOLONE ACETONIDE 0.1 % TOPICAL CREAM Apply to affected area three times daily. Apply thin film to affected areas. Vitals: BP 105/69 | Pulse 78 | Temp (Src) 36.9 C (98.4 F) (Oral) | RR 18 | Wt 77 kg (169 lb 12. 1 oz) | SpO2 98% | BMI 21.95 kg/(m^2) Pre-transplant weight 165 pounds Physical Exam: General: This is a male in no acute distress, sitting up in chair. HEENT: Sclerae anicteric. Mucosa pink and moist without erythema or exudate. Skin: Fading erythematous maculopapular rash to lower chest, abd, and hardly visible on th ighs bilat (front and back); ~25% BSA Chest: [...] 72 hours (or 3 results) Recent Labs 09/30/15 0859 WBC 15.28* HB 9.9* HCT 29.7* PLT 134* NEUTROPERC 74.3* LYMPHPERC 4.6* MONOPERC 10.1* BASOPERC 0.0 EOSPERC 1.8 Chemistries: Last 72 Hours (or 3 results): Recent Labs 09/10/15 2300 09/11/15 2313 09/12/15 2326 09/24/15 0742 09/24/15 0815 09/27/15 0918 09/27/15 1004 09/30/15 0757 09/30/15 0837 NA 144 143 142 < > 139 -- -- 138 138 -- K 3.7 3.9 3.9 < > 4.4 -- -- 3.8 4.7 -- CL 113* 109* 109* < > 98 -- -- 101 96* -- BICARB 21 25 25 < > 28 -- -- 29 29 -- BUN 22* 19 18 < > 25* -- -- 16 17 -- CR 0.91 0.94 0.96 < > 0.9 -- -- 0.7 0.8 -- GLU 90 95 121* < > 113* -- -- 104* 85 -- CA 8.1* 8.0* 8.3* < > 9.4 -- -- 9.3 9.3 -- AST 18 22 19 < > -- 17 15 -- -- 23 ALT 28 31 35 < > -- 56 63* -- -- 68* AP 63 83 96 < > -- 90 73 -- -- 71 TBILI 0.5 0.5 0.4 < > -- 0.4 0.4 -- -- 0.2* TP 5.8* 6.1* 6.1* < > -- 6.9 6.3* -- -- 6.3* ALB 2.7* 2.9* 3.0* < > -- 3.7 3.4* -- -- 3.4* ANIONGAP 10 9 8 -- -- -- [...] 5.96 x 10^6 per kg -BMT Day: +34 Pertinent Diagnostics: -Around day + 30 repeat [...] eruption of lymphocyte recovery and early mild frhvl-gnboee-nkyx disease. On 09/13, rash in volved ~15% BSA. Patient with progression of rash to chest, abd, back, upper arms bilat, thi ghs bilat (front and back); ~56% BSA at wrost on 09/14 and again on 09/16. Rash continues to re solve, now located on lower chest, abdomen, and thighs bilat (front and back), rash ~25% BSA , continues to fade. -Triamcinolone cream 0.1% TID to rash -Started [...] 0 Liver: Grade 0 Overall stage: 2 Pulmonary: Pretransplant PFTs completed on 08/09/15 showed [...] planned 10/07/15 if rash continues to improve. -Return to clinic 10/04/15 to see me, sooner prn. Em Saunders PA-C [facility] AT [address] Mailcode: [place] [phone] documented in this encounter Plan of Treatment [...] [address] | | | | | | [place], [place] | | | | | | [address] | | | | | | [phone] | | | | | | | | +--------+---------+ + + + documented as of this encounter Results CBC+DIFF,POC (10/04/2015 12:43 PM [...] SORTO | [address] | [place], [place] | | | [facility] | [address] | [address] | | | TESTS | | | | + + + + + BMP PHIL PAK CHM (10/04/2015 12:42 PM PDT) + +---------+ + [...] YESSICA SORTO | [address] | [place], [place] | | | [facility] | [address] | [address] | | | TESTS | | | | + + + + + CMV PCR QUANTITATION, PLASMA (10/04/2015 12:25 PM PDT) + + + + + + | Component | Value | Ref Range | Performed | Pathologist | | | | | At | Signature | + + + + + + | CMV DNA | Undetected | Undetected, | [facility] | | | QUANTITATIO | | Undetected [...] 2 fold may not reflect true | [facility] | | biological changes and [...] | | | characteristics determined by the [facility] | | | [facility] Diagnostic Center. It has not been cleared or approved by | | | the Food and Drug Administration. FDA approval is not required for | | | clinical use of this test, and therefore validation was done as | | | required under the requirements of the Clinical Laboratory Improvement | | | Act of 1988. The [facility] | | | Diagnostic Center is a fully licensed and/or accredited clinical | | | laboratory under CLIA, CAP, and the [facility]. | | + + + + + + + + | Performing | Address | City/State/Zipcode | Phone Number | | Organization | | | | + + + + + | [facility] | [address], | [place] [address] | | | DIAGNOSTIC | [address] [...] [facility] | [address] | [place] [address] | | | SERVICES, SPECIAL | PARK [...] | + + + + + | [facility] | [address] | [place] [address] | | | SERVICES, CORE | WALLY [...] [facility] | [address] | [place] [address] | | | SERVICES, CORE | PARK [...] | + + + + + | [facility] | [address] | [place] [address] | | | SERVICES, SPECIAL | PARK [...] + | [facility] - | [address] | [place] [address] | | | [facility] | | | | + + + + + documented in this encounter Visit Diagnoses + + | Diagnosis | + + | Acute myeloid leukemia (AML), M4 (HCC)- primary induction failure - Primary | + + | 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
--- OUTSIDE RECORDS SUMMARY | ~2019-05-17 | XMS | Encounter Summary ---
Demographics + + + | Address | [address] | | | [place] [address] | + + + | Home Phone [...] Team Providers + +------+ + | Care Physics Instructor Name | Role | Phone | [...] | | | | | achieved | [place], [place] | [facility] | | | | | remission | [address] | [place] | | | | | | Phone: | Pavilion | | | | | Procedures | [phone] | [place], [place] | | | | | Post BMT | Fax: | [address] | | | | | Auth to | [phone] | Phone: | | | | | included | | [phone] | | | | | facility, | | Fax: | | | | | diagnostics, | | [phone] | | | | | office | [...] at | | | | | | [facility] | | | | | | [address] | | | | | | [address] Mailcode: | | | | | | [facility] | | | | | | [place], | | | | | | [place] [address] | | | | | | [phone] | | | +--------+ + + + [...] Rd | | | | | | [place] | | | | | | [address] | | | | | | [phone] | | | | | | | | +--------+---------+ + + + documented as of this encounter Visit Diagnoses Not on filedocumented in this encounter"
--- OUTSIDE RECORDS SUMMARY | ~2019-05-17 | XMS | Encounter Summary ---
Demographics + + + | Address | [address] | | | [place] [address] | + + + | Home Phone [...] Team Providers + +------+ + | Care Steamfitter Apprentice Name | Role | Phone | + +------+ + | No Pcp Per Patient | PCP | Unavailable | + +------+ + Encounter Details +--------+ + + + + | Date | Type | Department | Care Team | Description | +--------+ + + + + | 10/16/ | Composite Mechanic | Center for | Yari Garcia MD | S/P allogeneic bone | | 2017 | | Hematologic | [address] [facility] | marrow transplant | | | | Malignancies at | [address] | ([facility]) (Primary Dx) | | | | [address] | [place], [place] | | | | | [address] | [address] | | | | | [address] Mailcode: | [phone] | | | | | [facility] | | | | | | [place], | | | | | | [place] [address] | | | | | | [phone] | | | +--------+ + + + [...] [place] | | | | | | [address] | | | | | | [phone] | | | | | | | | +--------+---------+ + + + documented as of this encounter Visit Diagnoses + + | Diagnosis | + + | 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
--- OUTSIDE RECORDS SUMMARY | ~2019-05-17 | XMS | Encounter Summary ---
Demographics + + + | Address | [address] | | | [place] [address] | + + + | Home Phone [...] Team Providers + +------+ + | Care Restaurant Floor Manager Name | Role | Phone | + +------+ + | No Pcp Per Patient | PCP | Unavailable | + +------+ + Reason for Visit + + + | Reason | Comments | + + + | Refill Request | Tac 1 mg | + + + Encounter Details +--------+--------+ + + + | Date | Type | Department | Care Team | Description | +--------+--------+ + + + | 11/10/ | Refill | Center for | Yari Garcia MD | Refill Request (Tac | | 2017 | | Hematologic | [address] | 1 mg) | | | | Malignancies at | [address] | | | | | [address] | [place], [place] | | | | | [address] | [address] | | | | | [address] Mailcode: | [phone] | | | | | [facility] | | | | | | [facility] [place], | | | | | | [place] [address] | | | | | | [phone] | | | +--------+--------+ + + + [...] Rd | | | | | | [place], [place] | | | | | | [address] | | | | | | [phone] | | | | | | | | +--------+---------+ + + + documented as of this encounter Visit Diagnoses Not on filedocumented in this encounter"
--- OUTSIDE RECORDS SUMMARY | ~2019-05-17 | XMS | Encounter Summary ---
Demographics + + + | Address | [address] | | | [place] [address] | + + + | Home Phone [...] Team Providers + +------+ + | Care Cleaning Team Member Name | Role | Phone [...] | | | | | remission | [address] | [place] | | | | | | Phone: | Pavilion | | | | | Procedures | [phone] | [place], [place] | | | | | Post BMT | Fax: | [address] | | | | | Auth to | [phone] | Phone: | | | | | included | | [phone] | | | | | facility, | | Fax: | | | | | diagnostics, | | [phone] | | | | | office | [...] | | | | | | Asha [place], | | | | | | [place] [address] | | | | | | [phone] | | | +--------+ + + + [...] Rd | | | | | | [place], [place] | | | | | | [address] | | | | | | [phone] | | | | | | | | +--------+---------+ + + + documented as of this encounter Visit Diagnoses + + | Diagnosis | + + | 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
--- OUTSIDE RECORDS SUMMARY | ~2019-05-17 | XMS | Encounter Summary ---
Demographics + + + | Address | [address] | | | [place] [address] | + + + | Home Phone [...] Team Providers + +------+ + | Care Skill Labor Name | Role | Phone | + +------+ + | Zayda Hinton | PCP | | + +------+ + Encounter Details +--------+ + + + + | Date | Type | Department | Care Team | Description | +--------+ + + + + | 07/28/ | Pharmacy | Specialty Pharmacy | | | | 2015 | Visit | Services [address] | | | | | | Je Carrera | | | | | | [place], [place] | | | | | | [address] | | | | | | [phone] | | | +--------+ + + + [...] [place] | | | | | | [address] | | | | | | [phone] | | | | | | | | +--------+---------+ + + + documented as of this encounter Visit Diagnoses Not on filedocumented in this encounter"
--- OUTSIDE RECORDS SUMMARY | ~2019-05-17 | XMS | Encounter Summary ---
Demographics + + + | Address | [address] | | | [place] [address] | + + + | Home Phone [...] Team Providers + +------+ + | Care Shaft Headman Name | Role | Phone | + [...] | | | | | achieved | [facility] [place] | [facility] | | | | | remission | [address] | [place] | | | | | | Phone: | Pavilion | | | | | Procedures | [phone] | [place], [place] | | | | | Post BMT | Fax: | [address] | | | | | Auth to | [phone] | Phone: | | | | | included | | [phone] | | | | | facility, | | Fax: | | | | | diagnostics, | | [phone] | | | | | office | [...] | Visit | Hematologic | PA-C [address] [facility] | leukemia (AML), M4 | | | | Malignancies at | Jabier [address] | ([facility])- primary | | | | [facility] | [place], [place] | induction failure | | | | [address] [facility] | [address] | (Primary Dx); S/P | | | | Wally Burger Mailcode: | [phone] | allogeneic bone | | | | [facility] [place] | | marrow transplant | | | | Pavilion [place], | | ([facility]) | | | | [place] [address] | | | | | | [phone] | | | +--------+---------+ + + + [...] MM URD (DPB1 permissive antigen mismatch, male, [id number]) Hematologic History: Khurram Kelly is a 25 [...] his L ankle. He was evaluated at [facility] ED on 06/[address] angiogram negative [...] acute myelomonocytic leukemia. 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 Pt was admitted to [facility] on 05/26/15. Peripheral blood was [...] CD34, variable CD56, variable CD117, and dim [id number]-[id number] mickey; promonocyte immunophenotype (70% by flow): CD11b, [...] eruption of lymphocyte recovery and early mild eozmn-jkakdb-vztr disease. On 09/13, rash in volved ~15% [...] PA-C [facility] [address] Mailcode: [place] [address] documented in this encounter Plan of Treatment [...] Carrera | | | | | | [place], [place] | | | | | | [address] | | | | | | [phone] | | | | | | | [...] SORTO | [address] | [place], [place] | | | [facility] | [address] | [address] | | | TESTS | | | [...] YESSICA SORTO | [address] | [place], [place] | | | [facility] W[facility]IDE OF [facility] | [address] | [address] | | | TESTS | | | [...] 2 fold may not reflect true | [facility] | | biological changes and must [...] | | | characteristics determined by the [facility] | | | Molecular [...] | | | Act of 1988. The [facility] Molecular | | | Diagnostic Center is a fully licensed and/or accredited clinical | | | laboratory under CLIA, CAP, and the [facility]. | | + + + + + + + + | Performing | Address | City/State/Zipcode | Phone Number | | Organization | | | | + + + + + | SHAN | [address], | [place] [address] | | | DIAGNOSTIC | [address] [...] [facility] | [address] | [place] [address] | | | SERVICES, SPECIAL | PARK [...] [facility] | [address] | [place] [address] | | | SERVICES, CORE | WALLY [...] [facility] | [address] | [place] [address] | | | SERVICES, CORE | PARK [...] [facility] | [address] | [place] [address] | | | SERVICES, SPECIAL | PARK [...] + | C[facility] - AIRPORT - | [address] | [place] [address] | | | [facility] | | | | + + [...]
--- OUTSIDE RECORDS SUMMARY | ~2019-05-17 | XMS | Encounter Summary ---
Demographics + + + | Address | [address] | | | [place] [address] | + + + | Home Phone [...] Providers + +------+ + | Care Chief Design Engineer Name | Role | Phone [...] | 2018 | | Hematologic | [address] [facility] | | | | | Malignancies at | [facility] | | | | | [place] [address] | [place], [place] | | | | | [address] [facility] | [address] | | | | | [facility] Mailcode: | [phone] | | | | | [facility] [place] | | | | | | Pavilion [place], | | | | | | [place] [address] | | | | | | [phone] | | | +--------+--------+ + + + [...] Rd | | | | | | [place] | | | | | | [address] | | | | | | [phone] | | | | | | | | +--------+---------+ + + + documented as of this encounter Visit Diagnoses Not on filedocumented in this encounter"
--- OUTSIDE RECORDS SUMMARY | ~2019-05-17 | XMS | Encounter Summary ---
Demographics + + + | Address | [address] | | | [place] [address] | + + + | Home Phone [...] Team Providers + +------+ + | Care International Representative Name | Role | Phone | [...] | ic leukemia, | Je Eugene | [facility] | | | | | not having | [address] | Jabier Carrera | | | | | achieved | [place], [place] | Rd Mailcode: | | | | | remission | [address] | [facility] | | | | | Procedures | Phone: | [place] | | | | | [place] | [phone] | Pavilion | | | | | AZACITIDINE | Fax: | [place], [place] | | | | | INJECTION, 1 | [phone] | [address] | | | | | [place] | | Phone: | | | | | CHM,IV | | [phone] | | | | | INFSN,1 HR | | Fax: | | | | | [place] CHM,IV | | [phone] | | | | | INFSN,ADDL | [...] | | | | | | Asha [place], | | | | | | [place] [address] | | | | | | [phone] | | | +--------+ + + + [...] Tacrolimus - Initial Assessment Khurram Diamond Leticia's contact lens manufacturer for today is Gabriel burgos his contact phone number for today 12/02 is: [phone] Khurram has been advised of when to [...] Rd | | | | | | [place], [place] | | | | | | [address] | | | | | | [phone] | | | | | | | [...] [facility] | [address] | [place] [address] | | | SERVICES, CORE | WALLY [...] | + + + + + | [employer] | [address] | [place] [address] | | | SERVICES, SPECIAL | PARK [...]
--- OUTSIDE RECORDS SUMMARY | ~2019-05-17 | XMS | Encounter Summary ---
Demographics + + + | Address | [address] | | | [place] [address] | + + + | Home Phone [...] Team Providers + +------+ + | Care Horticultural Agent Name | Role | Phone | [...] Pharmacy | | | | | | [address] | | | | | | Debi Burger [place], | | | | | | [place] [address] | | | +--------+ + + + [...] 2018 | Visit | Malignancy | [address] [facility] | | | | | | [address] | | | | | | [place], [place] | | | | | | [address] | | | | | | [phone] | | | | | | | | +--------+---------+ + + + documented as of this encounter Visit Diagnoses Not on filedocumented in this encounter"
--- OUTSIDE RECORDS SUMMARY | ~2019-05-17 | XMS | Encounter Summary ---
Demographics + + + | Address | [address] | | | [place] [address] | + + + | Home Phone [...] Team Providers + +------+ + | Care Criminal Justice Professor Name | Role | Phone | [...] Description | +--------+--------+ + + + | 01/10/ | Refill | Center for | Yari Garcia MD | Refill Request | | 2017 | | Hematologic | [address] [facility] | | | | | Malignancies at | [address] | | | | | Christian Barry | [place], [place] | | | | | [address] | [address] | | | | | Debi Burger Mailcode: | [phone] | | | | | [facility] [place] | | | | | | [place], | | | | | | [place] [address] | | | | | | [phone] | | | +--------+--------+ + + + [...] Rd | | | | | | [place] | | | | | | [address] | | | | | | [phone] | | | | | | | | +--------+---------+ + + + documented as of this encounter Visit Diagnoses Not on filedocumented in this encounter"
--- OUTSIDE RECORDS SUMMARY | ~2019-05-17 | XMS | Encounter Summary ---
Demographics + + + | Address | [address] | | | [place] [address] | + + + | Home Phone [...] Team Providers + +------+ + | Care Tray Checker Name | Role | Phone | [...] versus host | [address] | ,PhD 0058 | | | | | disease) | [address] | [address] | | | | | ([facility] | [address]bi Burger | Ave | | | | | Procedures | [place], [place] | [place], [place] | | | | | CONSULT TO | [address] | [address] | | | | | DERM & DERM | Phone: | Phone: | | | | | SURGERY | [phone] | [phone] | | | | | | Fax: | Fax: | | | | | | [phone] | [phone] | +--------+ + + + + + Encounter Details +--------+---------+ + + + | Date | Type | Department | Care Team | Description | +--------+---------+ + + + | 02/09/ | Office | Dermatology | Maxwell Prince, | Rash and other | | 2016 | Visit | Medical at [facility] | [address] | nonspecific skin | | | | Floor [address] | [place], [place] | eruption (Primary | | | | Ave Mailcode: [id number] | [address] | Dx) | | | | [facility] | [phone] | | | | | and Wade, | | | | | | [facility] | | | | | | [place], [place] | | | | | | [address] | | | | | | [phone] | | | +--------+---------+ + + + [...] skin cance rs including melanoma. ? The [place] [employer]at[employer] (AAD) recommends you wear [...] the following websites: http://www.[facility]/xd/health/services/dermatology/for-patients/health_info.cfm - [facility] Derm atology http://www.aad.org/public/sun/smart.html - AAD Website [...] HISTORY: Pt is . Lives with in [place], [place] EtOH: has no history of alcohol [...] Christofer Downing M.D. Resident, Department of Dermatology [facility] and Science [place] 02/10/2016 documented in this encounter Plan of [...] Debi | | | | | | [place], [place] | | | | | | [address] | | | | | | [phone] | | | | | | | | +--------+---------+ + + + documented as of this encounter Procedures + +--------+ + + + | Procedure Name | Priori | Date/Time | Associated Diagnosis | Comments | | | ty | | | | + +--------+ + + + | KS BIOPSY OF SKIN | Routin | 02/10/2016 [...] [facility] | Afsaneh BERRY, [address] | [place] [address] | | | DERMATOPATHOLOGY | [address] | | | + + + + + documented in this encounter Visit Diagnoses + + | Diagnosis | + + | Rash and other nonspecific skin eruption - Primary | + + documented in this encounter
--- OUTSIDE RECORDS SUMMARY | ~2019-05-17 | XMS | Encounter Summary ---
Demographics + + + | Address | [address] | | | [place] [address] | + + + | Home Phone [...] Team Providers + +------+ + | Care Fan Mail Clerk Name | Role | Phone | [...] | | | | Christian Barry | [place], [place] | | | | | [address] | [address] | | | | | Debi Burger Mailcode: | [phone] | | | | | [facility] | | | | | | [place]a [place], | | | | | | [place] [address] | | | | | | [phone] | | | +--------+ + + + [...] [place] | | | | | | [address] | | | | | | [phone] | | | | | | | | +--------+---------+ + + + documented as of this encounter Visit Diagnoses Not on filedocumented in this encounter"
--- OUTSIDE RECORDS SUMMARY | ~2019-05-17 | XMS | Encounter Summary ---
Demographics + + + | Address | [address] | | | [place] [address] | + + + | Home Phone [...] Providers + +------+ + | Care Aircraft Fueler Name | Role | Phone | + [...] | | | [address] | [place], [place] | | | | | Debi Burger Mailcode: | [address] | | | | | [facility] | [phone] | | | | | [place], | | | | | | [place] [address] | | | | | | [phone] | | | +--------+ + + + [...] 2019 | Visit | Malignancy | [address] [facility] | | | | | | [address] | | | | | | [place] | | | | | | [address] | | | | | | [phone] | | | | | | | | +--------+---------+ + + + documented as of this encounter Visit Diagnoses Not on filedocumented in this encounter"
--- OUTSIDE RECORDS SUMMARY | ~2019-05-17 | XMS | Encounter Summary ---
Demographics + + + | Address | [address] | | | [place] [address] | + + + | Home Phone [...] Team Providers + +------+ + | Care Career Based Intervention Coordinator Name | Role | Phone | + +------+ + | No Pcp Per Patient | PCP | Unavailable | + +------+ + Encounter Details +--------+ + + + + | Date | Type | Department | Care Team | Description | +--------+ + + + + | 03/16/ | Corporate Training Manager | Orthopaedics at | Lobo Jeffers, | Hip joint | | 2017 | | [facility] [address] | [address] | replacement status | | | | [address] | [address] | (Primary Dx) | | | | Mailcode: [id number] | [place], [place] | | | | | [facility] | [address] | | | | | [place], [place] | [phone] | | | | | [address] | | | | | | [phone] | | | +--------+ + + + [...] Rd | | | | | | [place], [place] | | | | | | [address] | | | | | | [phone] | | | | | | | | +--------+---------+ + + + documented as of this encounter Visit Diagnoses + + | Diagnosis | + + | Hip joint replacement status - Primary Hip joint replacement by other means | + + documented in this encounter"
--- OUTSIDE RECORDS SUMMARY | ~2019-05-17 | XMS | Encounter Summary ---
Demographics + + + | Address | [address] | | | [place] [address] | + + + | Home Phone [...] Team Providers + +------+ + | Care Gimp Tacker Name | Role | Phone | + +------+ + | Pending Pcp Addition | PCP | Unavailable | + +------+ + Reason for Visit + + + | Reason | Comments | + + + | Medication | IST | | Adjustment | | + + + Encounter Details +--------+ + + + + | Date | Type | Department | Care Team | Description | +--------+ + + + + | 12/01/ | Telephone | Center for | Wilian Plascencia, | Medication | | 2016 | | Hematologic | LOCATE TECHNICIAN [address] | Adjustment (IST) | | | | Malignancies at [facility] | [address] | | | | | [address] | [place], [place] | | | | | Debi Tao Mailcode: | [address] | | | | | [facility] | [phone] | | | | | [place], | | | | | | [place] [address] | | | | | | [phone] | | | +--------+ + + + [...] Rd | | | | | | [place] | | | | | | [address] | | | | | | [phone] | | | | | | | | +--------+---------+ + + + documented as of this encounter Visit Diagnoses Not on filedocumented in this encounter"
--- OUTSIDE RECORDS SUMMARY | ~2019-05-17 | XMS | Encounter Summary ---
Demographics + + + | Address | [address] | | | [place] [address] | + + + | Home Phone [...] Team Providers + +------+ + | Care Pumper Gauger Name | Role | Phone | + [...] | | | | | | [place], | | | | | | | [place] | | | | | | | [address] | | | | | | | Phone: | | | | | | | [phone] | | | | | | | Fax: | | | | | | | [phone] | +--------+--------+ + + + + Encounter [...] (HCC) (Primary Dx) | | | | [place] [address] | [place], [place] | | | | | [address] | [address] | | | | | Debi Burger Mailcode: | [phone] | | | | | [facility] [place] | | | | | | [place], | | | | | | [place] [address] | | | | | | [phone] | | | +--------+---------+ + + + [...] MM URD (DPB1 permissive antigen mismatch, male, [id number]) Identifying Data: Khurram Kelly is a 25 [...] his L ankle. He was evaluated at [facility] ED on 06/[address] [...] CD34, variable CD56, variable CD117, and dim VL595-lgrdg mickey; promonocyte immunophenotype (70% by flow): CD11b, [...] from a long week end trip to [facility] to visit with family and friends. They [...] marrow studies after c6 of azacitidine 2. 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
--- OUTSIDE RECORDS SUMMARY | ~2019-05-17 | XMS | Encounter Summary ---
Demographics + + + | Address | [address] | | | [place] [address] | + + + | Home Phone [...] Providers + +------+ + | Care Development Specialist Name | Role | Phone | + +------+ + | Zayda Hinton | PCP | | + +------+ + Encounter Details +--------+ + + + + | Date | Type | Department | Care Team | Description | +--------+ + + + + | 05/16/ | Pharmacy | Specialty Pharmacy | | | | 2015 | Visit | Services [address] | | | | | | [address] | | | | | | [place], [place] | | | | | | [address] | | | | | | [phone] | | | +--------+ + + + [...] [place] | | | | | | [address] | | | | | | [phone] | | | | | | | | +--------+---------+ + + + documented as of this encounter Visit Diagnoses Not on filedocumented in this encounter"
--- OUTSIDE RECORDS SUMMARY | ~2019-05-17 | XMS | Encounter Summary ---
Demographics + + + | Address | [address] | | | [place] [address] | + + + | Home Phone [...] Team Providers + +------+ + | Care Sale Professional Digital Marketing Name | Role | Phone | + +------+ + | Zayda Hinton | PCP | | + +------+ + Encounter Details +--------+ + + + + | Date | Type | Department | Care Team | Description | +--------+ + + + + | 03/30/ | Pharmacy | Specialty Pharmacy | | | | 2015 | Visit | Services [address] | | | | | | [address] | | | | | | [place], [place] | | | | | | [address] | | | | | | [phone] | | | +--------+ + + + [...] Rd | | | | | | [place], [place] | | | | | | [address] | | | | | | [phone] | | | | | | | | +--------+---------+ + + + documented as of this encounter Visit Diagnoses Not on filedocumented in this encounter"
--- OUTSIDE RECORDS SUMMARY | ~2019-05-17 | XMS | Encounter Summary ---
Demographics + + + | Address | [address] | | | [place] [address] | + + + | Home Phone [...] Providers + +------+ + | Care Computer Terminal Operator Name | Role | Phone | + +------+ + | Zayda Hinton | PCP | | + +------+ + Encounter Details +--------+ + + + + | Date | Type | Department | Care Team | Description | +--------+ + + + + | 11/07/ | Pharmacy | Specialty Pharmacy | | | | 2016 | Visit | Services [address] | | | | | | [address]rera | | | | | | [place], [place] | | | | | | [address] | | | | | | [phone] | | | +--------+ + + + [...] Rd | | | | | | [place], [place] | | | | | | [address] | | | | | | [phone] | | | | | | | | +--------+---------+ + + + documented as of this encounter Visit Diagnoses Not on filedocumented in this encounter"
--- OUTSIDE RECORDS SUMMARY | ~2019-05-17 | XMS | Encounter Summary ---
Demographics + + + | Address | [address] | | | [place] [address] | + + + | Home Phone [...] Providers + +------+ + | Care Manager It Training Name | Role | Phone | + [...] | ogy | Nausea and | [place], MANAGER BUDGET | [address] | | | | | vomiting, | [address] | [address] | | | | | intractabili | [facility] | Mailcode: | | | | | ty of | Rd | [facility] | | | | | vomiting not | [facility] [place] | for Health | | | | | specified, | [address] | and Healing, | | | | | unspecified | Phone: | Building [address] | | | | | vomiting | [phone] | [place], [place] | | | | | type | Fax: | [address] | | | | | Procedures | [phone] | Phone: | | | | | CONSULT TO | | [phone] | | | | | GI PROCEDURE | | Fax: | | | | | UNIT: EGD | | [phone] | | | | | CONSULT TO | | | | | | | GI PROCEDURE | | | | | | | UNIT: | | | | | | | FLEXIBLE | | | | | | | SIGMOIDOSCOP | | | | | | | Y NV UPPER | | | | | | | GI | | | | | | | ENDOSCOPY,BI | | | | | | | OPSY NV | | | | | | | [...] | Hematology | Diagnoses | [place], | [facility] | | | | Malignancy | 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, | [address] | [address] | | | | | not having | Wally Burger | Mailcode: | | | | | achieved | [place], [place] | [facility] | | | | | remission | [address] | [place] | | | | | | Phone: | Pavilion | | | | | Procedures | [phone] | [place], [place] | | | | | Post BMT | Fax: | [address] | | | | | Auth to | [phone] | Phone: | | | | | included | | [phone] | | | | | facility, | | Fax: | | | | | diagnostics, | | [phone] | | | | | office | [...] | [address] [facility] | intractability of | | | | Malignancies at | [facility] | vomiting not | | | | [facility] | [place], [place] | specified, | | | | [address] [facility] | [address] | unspecified vomiting | | | | Wally Mailcode: | [phone] | type (Primary Dx) | | | | [facility] [place] | | | | | | Pavilion [place], | | | | | | [place] [address] | | | | | | [phone] | | | +--------+---------+ + + + [...] MM URD (DPB1 permissive antigen mismatch, male, 9365-0186-2) Identifying Data: Khurram Kelly is a 26 [...] his L ankle. He was evaluated at [facility] ED on 06/[address] angiogram negative [...] CD34, variable CD56, variable CD117, and dim [id number]-wdhpg mickey; promonocyte immunophenotype (70% by flow): CD11b, [...] week. Advertised as being on the 3rd oh oor but was actually on the 9th floor of [facility]. While he was waiting in the [...] he was seen in the ED in [place] in late 01/21 . Prednisone was increased [...] [facility] [address] [facility] Mailcode: [place] [address] documented in this en counter [...] Rd | | | | | | [place], [place] | | | | | | [address] | | | | | | [phone] | | | | | | | [...] - MARQU[place] | [address] | [place], [place] | | | RUTHIE CARTER OF KRISTA | [facility] | [address] | | | TESTS | | | [...] SORTO | [address] | [place], [place] | | | [facility] POINT OF CARE | [address] | [address] | | | TESTS | | | [...] [facility] | [address] | [place] [address] | | | SERVICES, CORE | [address] | | | + + + + + documented in this encounter Visit Diagnoses + + | Diagnosis | + + | Nausea and vomiting, intractability of vomiting not specified, unspecified vomiting | | type - Primary | + + documented in this encounter
--- OUTSIDE RECORDS SUMMARY | ~2019-05-17 | XMS | Encounter Summary ---
Demographics + + + | Address | [address] | | | [place] [address] | + + + | Home Phone [...] Team Providers + +------+ + | Care Android Developer Name | Role | Phone | + +------+ + | No Pcp Per Patient | PCP | Unavailable | + +------+ + Encounter Details +--------+ + + + + | Date | Type | Department | Care Team | Description | +--------+ + + + + | 09/01/ | Results/Int | Pulmonary Function | | Encounter for | | 2016 | erpretation | Lab at [facility] [address] | | long-term (current) | | | | [address] | | use of medications | | | | Mailcode: [id number] | | (Primary Dx) | | | | [address] | | | | | | [place], [place] | | | | | | [address] | | | | | | [phone] | | | +--------+ + + + [...] as of this encounter Progress Notes Jerad Aguilera MD,PhD - 09/06/2016 11:12 AM PST Refer to PFT report. P STdocumented in this encounter Plan of Treatment +--------+---------+ [...] Rd | | | | | | [place], [place] | | | | | | [address] | | | | | | [phone] | | | | | | | | +--------+---------+ + + + documented as of this encounter Procedures + +--------+ + + + | Procedure Name | Priori | Date/Time | Associated Diagnosis | Comments | | | ty | | | | + +--------+ + + + | KS DIFFUSING | Routin | 09/06/2016 | Encounter for | | | CAPACITY | e | 11:12 AM | long-term (current) | | | | | PST | use of medications | | + +--------+ + + + | KS PLETHYSMOGRAPHY | Routin | 09/06/2016 | Encounter for | | | FOR DETERM OF LUNG | e | 11:12 AM | long-term (current) | | | VOLUMES | | PST | use of medications | | + +--------+ + + + | KS SPIROMETRY TEST | Routin | 09/06/2016 | Encounter for | | | | e | 11:12 AM | long-term (current) | | | [...]
--- OUTSIDE RECORDS SUMMARY | ~2019-05-17 | XMS | Encounter Summary ---
Demographics + + + | Address | [address] | | | [place] [address] | + + + | Home Phone [...] Team Providers + +------+ + | Care Diesel Powerplant Supervisor Name | Role | Phone | + +------+ + | Pending Pcp Addition | PCP | Unavailable | + +------+ + Encounter Details +--------+ + + + + | Date | Type | Department | Care Team | Description | +--------+ + + + + | 11/07/ | Telephone | Center for | Aspen Cummins FNP | | | 2016 | | Hematologic | [address] | | | | | Malignancies at [facility] | [address] | | | | | [address] | [place], [place] | | | | | Debi Burger Mailcode: | [address] | | | | | [facility] Christian | [phone] | | | | | [place], | | | | | | [place] [address] | | | | | | [phone] | | | +--------+ + + + [...] Rd | | | | | | [place], [place] | | | | | | [address] | | | | | | [phone] | | | | | | | | +--------+---------+ + + + documented as of this encounter Visit Diagnoses Not on filedocumented in this encounter"
--- OUTSIDE RECORDS SUMMARY | ~2019-05-17 | XMS | Encounter Summary ---
Demographics + + + | Address | [address] | | | [place] [address] | + + + | Home Phone [...] Providers + +------+ + | Care Box Maker Name | Role | Phone | [...] | | 2016 | | Hematologic | PAEDIATRICIAN [address] | Adjustment (IST) | | | | Malignancies at [facility] | [address] | | | | | [address] | [place], [place] | | | | | Debi Tao Mailcode: | [address] | | | | | [facility] Christina | [phone] | | | | | [place], | | | | | | [place] [address] | | | | | | [phone] | | | +--------+ + + + [...] Rd | | | | | | [place] | | | | | | [address] | | | | | | [phone] | | | | | | | | +--------+---------+ + + + documented as of this encounter Visit Diagnoses Not on filedocumented in this encounter"
--- OUTSIDE RECORDS SUMMARY | ~2019-05-17 | XMS | Encounter Summary ---
Demographics + + + | Address | [address] | | | [place] [address] | + + + | Home Phone [...] Providers + +------+ + | Care Steel Loader Name | Role | Phone | [...] [address] | | | | | | [place], [place] | | | | | | [address] | | | | | | [phone] | | | +--------+ + + + [...] 2019 | Visit | Malignancy | [address] [facility] | | | | | | [address] | | | | | | [place], [place] | | | | | | [address] | | | | | | [phone] | | | | | | | | +--------+---------+ + + + documented as of this encounter Visit Diagnoses Not on filedocumented in this encounter"
--- OUTSIDE RECORDS SUMMARY | ~2019-05-17 | XMS | Encounter Summary ---
Demographics + + + | Address | [address] | | | [place] [address] | + + + | Home Phone [...] Team Providers + +------+ + | Care Ship Mate Name | Role | Phone | + +------+ + | Zayda Hinton | PCP | | + +------+ + Encounter Details +--------+ + + + + | Date | Type | Department | Care Team | Description | +--------+ + + + + | 02/27/ | Pharmacy | Specialty Pharmacy | | | | 2015 | Visit | Services [address] | | | | | | [address] | | | | | | [place], [place] | | | | | | [address] | | | | | | [phone] | | | +--------+ + + + [...] Rd | | | | | | [place], [place] | | | | | | [address] | | | | | | [phone] | | | | | | | | +--------+---------+ + + + documented as of this encounter Visit Diagnoses Not on filedocumented in this encounter"
--- OUTSIDE RECORDS SUMMARY | ~2019-05-17 | XMS | Encounter Summary ---
Demographics + + + | Address | [address] | | | [place] [address] | + + + | Home Phone [...] Team Providers + +------+ + | Care Depositing Machine Operator Name | Role | Phone [...] | Ophthalmology | Diagnoses | Jose, | Cei Comp | | | | | S/P | Yari Jones MD | Oph Fac Chh1 | | | | | allogeneic | [address] | [address] | | | | | bone marrow | [address] | Fanta | | | | | transplant | [address] | Mailcode: | | | | | ([facility]) | [place], [place] | [facility] | | | | | Procedures | [address] | for Health | | | | | CONSULT TO | Phone: | and Healing, | | | | | OPHTHALMOLOG | [phone] | Building 1, | | | | | Y | Fax: | 11th Floor | | | | | | [phone] | [place], [place] | | | | | | | [address] | | | | | | | Phone: | | | | | | | [phone] | | | | | | | Fax: | | | | | | | [phone] | +--------+--------+ + + + + Encounter Details +--------+ + + + + | Date | Type | Department | Care Team | Description | +--------+ + + + + | 10/19/ | Android Ios Developer | Center for | Yrai Garcia MD | S/P allogeneic bone | | 2017 | | Hematologic | [address] | marrow transplant | | | | Malignancies at | [address] | (HCC) (Primary Dx) | | | | [address] | [place], [place] | | | | | [address] | [address] | | | | | Debi Burger Mailcode: | [phone] | | | | | [facility] [place] | | | | | | [facility] [place], | | | | | | [place] [address] | | | | | | [phone] | | | +--------+ + + + [...] Rd | | | | | | [place], [place] | | | | | | [address] | | | | | | [phone] | | | | | | | | +--------+---------+ + + + documented as of this encounter Visit Diagnoses + + | Diagnosis | + + | 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
--- OUTSIDE RECORDS SUMMARY | ~2019-05-17 | XMS | Encounter Summary ---
Demographics + + + | Address | [address] | | | [place] [address] | + + + | Home Phone [...] Team Providers + +------+ + | Care Customs Broker Name | Role | Phone | [...] Rd | Tacrolimus) | | | | [facility] | [place], [place] | | | | | [address] [facility] | [address] | | | | | [facility] Mailcode: | [phone] | | | | | [facility] [place] | | | | | | Pavilion [place], | | | | | | [place] [address] | | | | | | [phone] | | | +--------+ + + + [...] Rd | | | | | | [place] | | | | | | [address] | | | | | | [phone] | | | | | | | | +--------+---------+ + + + documented as of this encounter Visit Diagnoses Not on filedocumented in this encounter"
--- OUTSIDE RECORDS SUMMARY | ~2019-05-17 | XMS | Encounter Summary ---
Demographics + + + | Address | [address] | | | [place] [address] | + + + | Home Phone [...] Providers + +------+ + | Care Fire Engine Pump Operator Name | Role | Phone [...] | | | | | remission | [address] | [place] | | | | | | Phone: | [facility] | | | | | Procedures | [phone] | [place], [place] | | | | | Post BMT | Fax: | [address] | | | | | Auth to | [phone] | Phone: | | | | | included | | [phone] | | | | | facility, | | Fax: | | | | | diagnostics, | | [phone] | | | | | office | [...] at | | | | | | [facility] | | | | | | [address] | | | | | | W[address] Burger Mailcode: | | | | | | [facility] [place] | | | | | | [place], | | | | | | [place] [address] | | | | | | [phone] | | | +--------+ + + + [...] as of this encounter Progress Notes Lincoln Hermoslilo - 04/19/2017 10:00 AM PDTRight AC accessed [...] [place] | | | | | | [address] | | | | | | [phone] | | | | | | | [...] SORTO | [address] | [place], [place] | | | RUTHIE CARTER OF KRISTA | [facility] | [address] | | | TESTS | | | [...] | [facility] | [address] | [place] [address] | | | SERVICESINDRA | [address] [...] | Test performed by immunoassay using Blanton Abrasive Mixer i2000. . | [facility] | | Samples [...] | + + + + + | [facility] | [address] | [place] [address] | | | SERVICES, SPECIAL | WALLY [...] [facility] | [address] | [place] [address] | | | SERVICES, INDRA | [address] | | | + + + + + documented in this encounter Visit Diagnoses + + | Diagnosis | + + | 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
--- OUTSIDE RECORDS SUMMARY | ~2019-05-17 | XMS | Encounter Summary ---
Demographics + + + | Address | [address] | | | [place] [address] | + + + | Home Phone [...] Providers + +------+ + | Care Practice Business Asst Name | Role | Phone | + [...] | | | | | | | [address] | | | | | | | [address] | | | | | | | [place], | | | | | | | [place] | | | | | | | [address] | | | | | | | Phone: | | | | | | | [phone] | | | | | | | Fax: | | | | | | | [phone] | +--------+--------+ + + + + Encounter [...] | (HCC)- primary | | | | [facility] | [place], [place] | induction failure | | | | [address] | [address] | (Primary Dx) | | | | [address] Mailcode: | [phone] | | | | | [facility] | | | | | | Pavilion [place], | | | | | | [place] [address] | | | | | | [phone] | | | +--------+---------+ + + + [...] I'd like you to see someone at [facility] for some counseling. Transitions is a group ange t focus' on the non-clinical needs of our patients. You would benefit from meeting with the . You can call [phone]. You can ask for Opal Castaneda. Ok to stop taking Magnesium. We will get an xray of your hips on the way out today. Call us if you are having any issues. We will see you once weekly with labs/office visit and infusion. ---Check out at the desk lieutenant today and make your next appointments. You can also call the schedulers at . Decrease prednisone to 15 mg every other day starting tomorrow. If you have recurrence of the rash, diarrhea or anything new, CALL us. If you have any questions, or if you need prescription refills, or are experiencing any sym ptoms or side effects please call our band and cuff cutter at [phone] documented in this encounter Progress Notes Yari Garcia MD - 03/30/2016 10:17 AM PDT 217 days post transplant 03/30/2016 [facility] Primary [facility] MD: Yari Garcia MD Primary Oncologist: Yari Garcia MD Diagnosis: AMML, primary refractory Transplant Date: 08/27/15 Donor: MM URD (DPB1 permissive antigen mismatch, male, 4959-0935-2) Identifying Data: Khurram Kelly is a 25 [...] his L ankle. He was evaluated at [place]'s ED on 06/[address] angiogram [...] CD34, variable CD56, variable CD117, and dim IU919-xgepb mickey; promonocyte immunophenotype (70% by flow): CD11b, [...] social interactions . He has joined a [employer] league thinking this would help, but finds it quite anxiety invok ing to go to. Has been using scheduled klonopin, but finding that this is relatively unhelp ful. [place] that xanax was able to help more. Concerned about upcoming travel and whether he can get through it. Having low back pain - does not seem to be activity related - feels more bony than muscular . Pleased with having completed chemotherapy. Continuing to sort out where they will likely live anodizing line operator (i.e. ? Return to [place]?) A complete Review of Systems was completed [...] after c6 of azacitidine [scheduled 04/19/16] 2. Pwlnm-st-Dkiw Disease: Skin bx due to mild rash [...] he was seen in the ED in [place] in late 01/21. Prednisone was increased back [...] expeditiously --> pt provided with information for [employer] to establish peer support and AYA support gasper up resources available at [facility] 7. Musculoskeletal: Pt reports low back pain [...] results after marrow Yari Garcia MD, MS Research And Development Engineerconcrete finisher apprentice [facility] [address] [place] [address] documented in this enc ounter Plan of [...] Rd | | | | | | [place], [place] | | | | | | [address] | | | | | | [phone] | | | | | | | [...] + +---------+ + + | [facility] DEPARTMENT OF | | | | | RADIOLOGY | | | | + +---------+ + + documented in this encounter Visit Diagnoses + + | Diagnosis | + + | Acute myeloid leukemia (AML), M4 (HCC)- primary induction failure - Primary | + + documented in this encounter"
--- OUTSIDE RECORDS SUMMARY | ~2019-05-17 | XMS | Encounter Summary ---
Demographics + + + | Address | [address] | | | [place] [address] | + + + | Home Phone [...] Team Providers + +------+ + | Care Dub Room Engineer Name | Role | Phone | [...] Rd | | | | | | [place], [place] | | | | | | [address] | | | +--------+ + + + [...] Rd | | | | | | [place] | | | | | | [address] | | | | | | [phone] | | | | | | | | +--------+---------+ + + + documented as of this encounter Visit Diagnoses Not on filedocumented in this encounter"
--- OUTSIDE RECORDS SUMMARY | ~2019-05-17 | XMS | Encounter Summary ---
Demographics + + + | Address | [address] | | | [place] [address] | + + + | Home Phone [...] Team Providers + +------+ + | Care Typing Element Machine Operator Name | Role | Phone [...] | | | | [facility] | [place], [place] | | | | | [address] | [address] | | | | | Debi Burger Mailcode: | [phone] | | | | | [facility] | | | | | | [place], | | | | | | [place] [address] | | | | | | [phone] | | | +--------+---------+ + + + [...] for a month Check out at the desk interviewer today and make your next appointments. You can also call the charley at [phone]. If you have any questions, or if you need prescription refills, or are experiencing any sym ptoms or side effects please call our department clerk at [phone] documented in this encounter Progress Notes Yari Garcia MD - 09/17/2017 10:35 AM PDT 09/17/17 [facility] Primary [facility] MD: Yari Garcia MD Primary Oncologist: Yari Garcia MD Diagnosis: AMML, primary refractory Transplant Date: 08/27/15 Donor: MMURD (DPB1 permissive antigen mismatch, male, 2348-9473-2) Identifying Data: Khurram Kelly is a 27 [...] ankle. 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 Khurram continues to be the primary [...] 09/17/2017 10.55 PEF PRE (%REF) 09/17/2017 95 SOP60-49% PRE 09/17/2017 4.92 GPM78-62% PRE (%REF) 09/17/2017 99 FIF50% PRE 09/17/2017 [...] indicated providing peripheral counts remain stable 2. 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 He initially responded but flared during taper. He also developed low-level nausea and abd discomfort concerning for GvHD, emp irically treated with oral non-absorbables with resolution. - He had tapered prednisone to 10 mg po daily when he developed a rash for which he was see n in the ED in [place] in late 01/21. Prednisone was increased back [...] if interval issues Yari Garcia MD, MS Panelboard Assemblermanager english [facility] [address] [place] [address] documented in this enc ounter Plan of [...] Care | | | | | | [facility] | | | | | | [place], [place] | | | | | | [address] | | | | | | [phone] | | | | | | | [...] SORTO | [address] | [place], [place] | | | RUTHIE CARTER OF CARE | [facility] | [address] | | | TESTS | | | [...] SORTO | 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
--- OUTSIDE RECORDS SUMMARY | ~2019-05-17 | XMS | Encounter Summary ---
Demographics + + + | Address | [address] | | | [place] [address] | + + + | Home Phone [...] Providers + +------+ + | Care Shoe Repair Cobbler Name | Role | Phone | + [...] | | | | | | | [address] | | | | | | | [address] | | | | | | | [place], | | | | | | | [place] | | | | | | | [address] | | | | | | | Phone: | | | | | | | [phone] | | | | | | | Fax: | | | | | | | [phone] | +--------+--------+ + + + + Encounter [...] | (HCC)- primary | | | | [facility] | [place], [place] | induction failure | | | | [address] | [address] | (Primary Dx) | | | | [address] Mailcode: | [phone] | | | | | [facility] | | | | | | Pavilion [place], | | | | | | [place] [address] | | | | | | [phone] | | | +--------+---------+ + + + [...] MM URD (DPB1 permissive antigen mismatch, male, [id number]) Identifying Data: Khurram Kelly is a 25 [...] ankle. He was evaluated at [facility] ED on 06/[address] [...] CD34, variable CD56, variable CD117, and dim GR630-uqgrm mickey; promonocyte immunophenotype (70% by flow): CD11b, [...] requiring pain medications. Planning return home to [place] later today for first reunion with family [...] ant chest wall without erythema, induration Clinical Vigoureux Printer on 01/06/2016 Component Date Value WBC POC [...] e disease at time of transplant 2. Vttde-wx-Ynjn Disease: Skin bx due to mild rash [...] note, pt and planning to travel to [place] 01/05-01/10/16 Yari Garcia MD, MS Mixer Diamond Powdermoisture conditioner operator [facility] [address] [place] [address] documented in this enc ounter Plan of [...] Rd | | | | | | [place], [place] | | | | | | [address] | | | | | | [phone] | | | | | | | | +--------+---------+ + + + documented as of this encounter Visit Diagnoses + + | Diagnosis | + + | Acute myeloid leukemia (AML), M4 (HCC)- primary induction failure - Primary | + + documented in this encounter"
--- OUTSIDE RECORDS SUMMARY | ~2019-05-17 | XMS | Encounter Summary ---
Demographics + + + | Address | [address] | | | [place] [address] | + + + | Home Phone [...] Team Providers + +------+ + | Care Plasma Processor Name | Role | Phone | + [...] | Mailcode: | | | | | ([facility]) | [place], [place] | [facility] Center | | | | | Procedures | [address] | for Health | | | | | BONE DENSITY | Phone: | and Healing, | | | | | PROCEDURE | [phone] | Building 1 | | | | | | Fax: | [place], [place] | | | | | | [phone] | [address] | | | | | | | Phone: | | | | | | | [phone] | | | | | | | Fax: | | | | | | | [phone] | +--------+--------+ + + + + Reason [...] | | | | Malignancies at | [facility] | (HCC) (Primary Dx); | | | | [facility] | [place], [place] | Acute myelomonocytic | | | | [address] [facility] [address] | [address] | leukemia in | | | | [address] Mailcode: | [phone] | remission (HCC) | | | | [facility] | | | | | | [facility] [place], | | | | | | [place] [address] | | | | | | [phone] | | | +--------+---------+ + + + [...] MM URD (DPB1 permissive antigen mismatch, male, 7972-9577-2) Identifying Data: Khurram Gambleliat is a 26 [...] his L ankle. He was evaluated at [place]'s ED on 06/[address] angiogram negative [...] CD34, variable CD56, variable CD117, and dim DL940-obzlk mickey; promonocyte immunophenotype (70% by flow): CD11b, [...] conjunction with his one year anniversary 2. 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] requiring prednisone [...] FOR HEMATOLOGIC MALIGNANCIES AT [facility] [address] [facility] Mailcode: [place] [address] documented in this e ncounter [...] | 2018 | Visit | Malignancy | [address] [place] [address] | | | | | | [facility] | | | | | | [place], [place] | | | | | | [address] | | | | | | [phone] | | | | | | | [...] | SPECIAL | | | ION | [id number]: | | DIAGNOSTICS | | | | [...] 6.30 | | | | | | [id number] (L) | | | | | | | | | | | | 5.28 5.13 | | | | | | 806MMF0/FVC (%) | | | | | | [...] + + + + + + | RMN26-17% | 4.64 | 5.09 L/sec | [facility] | | | PRE | | | SPECIAL | | | | | | DIAGNOSTICS | | | | | | - | | | | | | PULMONARY | | | | | | FUNCTION | | + + + + + + | IWC33-99% | 91 | % | [facility] | [...] YESSICA HARPER | [address] | [place], [place] | | | DIAGNOSTICS - | [address] | [address] | | | PULMONARY FUNCTION | | [...] + | [facility] - | [address] | [place] [address] | | | [place] | | | [...] + | [facility] - | [address] | [place] [address] | | | [place] | | | [...] + | [facility] - | [address] | [place] [address] | | | [place] | | | | + + + [...] + | [facility] - | [address] | [place] [address] | | | [place] | | | | + + + [...] + | [facility] | [address] | [place] [address] | | | SERVICES, CORE | [address]ARK [...] | + + + + + | [employer] | [address] | [place] [address] | | | SERVICES, CORE | [address] [...] + | [facility] | [address] [facility] | [place] [address] | | | KOLE, INDRA | [address] [...] Directory | | | | | | ([employer]).Performed | | | | | | by [place],[address] | | | | | | [address], [facility],[place] | | | | | | [address] | | | | | | [phone].[email or web address]. | | | | | | [facility], Abhishek Drew MD, | | | [...] [facility] | [address] | [place], [place] | | | UN[facility] P[facility] INT[facility] | | [address] | | + + + + + [...] + | [facility] | [address] | [place] [address] | | | SERVICES, CORE | [address] [...] [facility] | [address] | [place] [address] | | | SERVICES, INDRA | PARK [...] SORTO | [address] | [place], [place] | | | RUTHIE CARTER OF KRISTA | [address] | [address] | | | TESTS | | | [...]
--- OUTSIDE RECORDS SUMMARY | ~2019-05-17 | XMS | Encounter Summary ---
Demographics + + + | Address | [address] | | | [place] [address] | + + + | Home Phone [...] Team Providers + +------+ + | Care Circular Stuffer Name | Role | Phone | + +------+ + | Zayda Hinton | PCP | | + +------+ + Reason for Visit + + + | Reason | Comments | + + + | Lab Draw | pt [facility] labs drawn [facility] (05/06) pt | | | was curious if labs were sent to Dr Garcia, and if pt can get a | | | call from Dr Garcia or Placido about results of labs | + + + Encounter Details +--------+ + + + + | Date | Type | Department | Care Team | Description | +--------+ + + + + | 05/08/ | Telephone | Center for | Yari Garcia MD | Lab Draw (pt had | | 2019 | | Hematologic | [address] | labs drawn in | | | | Malignancies at [facility] | [address] | [facility] | | | | [address] | [place], [place] | care 2 days ago | | | | Mailcode: [place] | [address] | (05/06) pt was | | | | for Health and | [phone] | curious if labs were | | | | Healing, [facility] 2 | | sent to Dr Garcia, | | | | [place], [place] | | and if pt can get a | | | | [address] | | call from Dr Garcia or | | | | [phone] | | Cummins about | | | | | | [...] Rd | | | | | | [place], [place] | | | | | | [address] | | | | | | [phone] | | | | | | | | +--------+---------+ + + + documented as of this encounter Visit Diagnoses Not on filedocumented in this encounter"
--- OUTSIDE RECORDS SUMMARY | ~2019-05-17 | XMS | Encounter Summary ---
Demographics + + + | Address | [address] | | | [place] [address] | + + + | Home Phone [...] Team Providers + +------+ + | Care Payroll Human Resources Assistant Name | Role | Phone | [...] | | | | | | [place], | | | | | | | [place] | | | | | | | [address] | | | | | | | Phone: | | | | | | | [phone] | | | | | | | Fax: | | | | | | | [phone] | +--------+--------+ + + + + Encounter [...] | | | | | | [address] | | | | | | [place], | | | | | | [place] [address] | | | | | | [phone] | | | +--------+ + + + [...] [facility] | [address] [place] [address] | | | | | | [address] | | | | | | [place], [place] | | | | | | [address] | | | | | | [phone] | | | | | | | [...] PDT | transplant ([facility]) | results section. | + [...] PDT | transplant ([facility]) | results section. | + [...] | transplant ([facility]) | | + +--------+ + + + | TREATMENT PARAMETERS | Routin | 04/12/2016 | S/P allogeneic | | | #1 - BEACON | e | 12:34 PM | bone marrow | | | | | PDT | transplant ([facility]) | | + +--------+ + + + | TREATMENT PARAMETERS | Routin | 04/12/2016 | S/P allogeneic | | | #1 - BEACON | e | 12:34 PM | bone marrow | | | | | PDT | transplant ([facility]) | | + +--------+ + + + | CMV PCR | Routin | 04/12/2016 | S/P allogeneic | Results for this | | QUANTITATION, PLASMA | e | 12:34 PM | bone marrow | procedure are in the | | | | PDT | transplant ([facility]) | results section. | + [...] [place] | [address] | [place], [place] | | | RUTHIE CARTER OF CARE | [address] | [address] | | | TESTS | | | [...] [facility] | [address] | [place] [address] | | | SERVICES, CORE | [address] [...] | | | LABORATORY | | | SLOVENIAN | | | SERVICES, | | | [...] the MDRD equation recommended by the | [facility] | | National Kidney Disease Education [...] HOSPITAL LABORATORY | [address] | [place] [address] | | | SERVICES, CORE | PARK [...] | + + + + + | [facility] | [address] | [place] [address] | | | SERVICES, CORE | PARK [...] | characteristics determined by the [facility] | | | Molecular Diagnostic Center. It has not been cleared or approved by | | | the Food and Drug Administration. FDA approval is not required for | | | clinical use of this test, and therefore validation was done as | | | required under the requirements of the Clinical Laboratory Improvement | | | Act of 1988. The [facility] | | | Diagnostic Center is a fully licensed and/or accredited clinical | | | laboratory under CLIA, CAP, and the [facility]. | | + + + + + + + + | Performing | Address | City/State/[facility] | Phone Number | | Organization | | | | + + + + + | [facility] | [address] | [place] [address] | | | DIAGNOSTIC | [address] [...]
--- OUTSIDE RECORDS SUMMARY | ~2019-05-17 | XMS | Encounter Summary ---
Demographics + + + | Address | [address] | | | [place] [address] | + + + | Home Phone [...] Team Providers + +------+ + | Care French Cord Binder Name | Role | Phone | [...] | [facility] [address] | [address] | of bone of left hip | | | | Ave Mailcode: [address] | [address] | ([facility]) (Primary Dx) | | | | [place] [facility] | [place], [place] | | | | | and Healing, | [address] | | | | | [facility] | [phone] | | | | | Floor [place], [place] | | | | | | [address] | | | | | | [phone] | | | +--------+---------+ + + + [...] | 2019 | Visit | Malignancy | [address] [facility] [address] | | | | | | [facility] | | | | | | [place], [place] | | | | | | [address] | | | | | | [phone] | | | | | | | | +--------+---------+ + + + documented as of this encounter Visit Diagnoses + + | Diagnosis | + + | Avascular necrosis of bone of left hip (HCC) - Primary | + + documented in this encounter
--- OUTSIDE RECORDS SUMMARY | ~2019-05-17 | XMS | Encounter Summary ---
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) | | | | [address] | | (Primary Dx) | | | | Mailcode: [facility] | | | | | | [address] | | | | | | [place], [place] | | | | | | [address] | | | | | | [phone] | | | +--------+ + + + [...] Rd | | | | | | [place], [place] | | | | | | [address] | | | | | | [phone] | | | | | | | | +--------+---------+ + + + documented as of this encounter Procedures + +--------+ + + + | Procedure Name | Priori | Date/Time | Associated Diagnosis | Comments | | | ty | | | | + +--------+ + + + | UT DIFFUSING | Routin | 05/29/2017 | 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
--- OUTSIDE RECORDS SUMMARY | ~2019-05-17 | XMS | Encounter Summary ---
Demographics + + + | Address | [address] | | | [place] [address] | + + + | Home Phone [...] Team Providers + +------+ + | Care River Rafting Guide Name | Role | Phone | [...] | | | | | | [place] [facility], | | | | | | | [place] | | | | | | | [address] | | | | | | | Phone: | | | | | | | [phone] | | | | | | | Fax: | | | | | | | [phone] | +--------+--------+ + + + + Encounter [...] | | [address] | | TECHNICAL ASSOCIATE) | | | | Debi Burger Mailcode: | | | | | | [address] | | | | | | [place], | | | | | | [place] [address] | | | | | | [phone] | | | +--------+ + + + [...] For Treatment Done in Clinic Today: see [facility] Treatment Provided: Labs ordered twice weekly, were drawn Sunday and will be drawn tomorrow. Pre-medication of Zofran 8 mg PO given as ordered. Chemotherapy was checked by 2 RNs. Vidaza was infused per chemotherapy protocol and comple edward without adverse event. Positive blood return noted pre and post infusion. For infusion details, see [facility]. PIV was removed intact and site free of redness, pain or swelling. Site covered with gauze and coban. Patient was reminded to call clinic with temp > 100.4, chills, s/s of bleeding or uncontrolled N/V/D/C. Patient verbalizes understanding. All questions answered. Patient was instructed to check out at the credit front office developer prior to leaving the clinic. Patient [...] 2018 | Visit | Malignancy | [address] [facility] | | | | | | [address] | | | | | | [place], [place] | | | | | | [address] | | | | | | [phone] | | | | | | | [...]
--- OUTSIDE RECORDS SUMMARY | ~2019-05-17 | XMS | Encounter Summary ---
Demographics + + + | Address | [address] | | | [place] [address] | + + + | Home Phone [...] Providers + +------+ + | Care Barrel Filler Head Name | Role | Phone | [...] | | | | | remission | [address] | [facility] | | | | | Procedures | Phone: | [address] | | | | | [place] | [phone] | Pavilion | | | | | AZACITIDINE | Fax: | [place], [place] | | | | | INJECTION, 1 | [phone] | [address] | | | | | MG PA | | Phone: | | | | | CHM,IV | | [phone] | | | | | INFSN,1 HR | | Fax: | | | | | PA CHM,IV | | [phone] | | | | | INFSN,ADDL | [...] | | | | | | [facility] | | | | | | [place], | | | | | | [place] [address] | | | | | | [phone] | | | +--------+ + + + [...] | | | | | | [place], [place] | | | | | | [address] | | | | | | [phone] | | | | | | | [...]
--- OUTSIDE RECORDS SUMMARY | ~2019-05-17 | XMS | Encounter Summary ---
Demographics + + + | Address | [address] | | | [place] [address] | + + + | Home Phone [...] Team Providers + +------+ + | Care Trouble Locater Name | Role | Phone | + +------+ + | Zayda Hinton | PCP | | + +------+ + Encounter Details +--------+ + + + + | Date | Type | Department | Care Team | Description | +--------+ + + + + | 08/22/ | Web Press Operator Assistant | Center for | Yari Garcia MD | S/P allogeneic bone | | 2018 | | Hematologic | [address] | marrow transplant | | | | Malignancies at | [address] | (HCC) (Primary Dx) | | | | [facility] | [place], [place] | | | | | [address] | [address] | | | | | [address] Mailcode: | [phone] | | | | | [address] | | | | | | [place], | | | | | | [place] [address] | | | | | | [phone] | | | +--------+ + + + [...] [address] | | | | | | [place], [place] | | | | | | [address] | | | | | | [phone] | | | | | | | | +--------+---------+ + + + documented as of this encounter Results LIPID SET (TRIG, T CHOL, HDL, CALC [...] + + + + + | [facility] | [address] | [place] [address] | | | SERVICES, CORE | [address] | | | + + + + + documented in this encounter Visit Diagnoses + + | Diagnosis | + + | 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
--- OUTSIDE RECORDS SUMMARY | ~2019-05-17 | XMS | Encounter Summary ---
Demographics + + + | Address | [address] | | | [place] [address] | + + + | Home Phone [...] Team Providers + +------+ + | Care Customer Supply Chain Analyst Name | Role | Phone | + +------+ + | No Pcp Per Patient | PCP | Unavailable | + +------+ + Encounter Details +--------+------+ + + + | Date | Type | Department | Care Team | Description | +--------+------+ + + + | 10/26/ | Lab | Laboratory, | | S/P allogeneic bone | | 2016 | | Specimen Collection | | marrow transplant | | | | at [facility] 3rd Floor | | ([facility]) | | | | [address] | | | | | | [place], | | | | | | [place] [address] | | | | | | [phone] | | | +--------+------+ + + + [...] Rd | | | | | | [place], [place] | | | | | | [address] | | | | | | [phone] | | | | | | | | +--------+---------+ + + + documented as of this encounter Procedures + +--------+ + + + | Procedure Name | Priori | Date/Time | Associated Diagnosis | Comments | | | ty | | | | + +--------+ + + + | CBC AND AUTO DIFF | Routin | 10/26/2016 | S/P allogeneic | Results for this | | | e | 9:42 AM | bone marrow | procedure are in the | | | | PDT | transplant ([facility]) | results section. | + +--------+ + + + | CBC, WITH | Routin | 10/26/2016 | S/P allogeneic | Results for this | | DIFFERENTIAL | e | 9:42 AM | bone marrow | procedure are in the | | | | PDT | transplant ([facility]) | results section. | + +--------+ + + + | COMPLETE METABOLIC | Routin | 10/26/2016 | S/P allogeneic | Results for this | | SET | e | 9:42 AM | bone marrow | procedure are in the | | (NA,K,CL,CO2,BUN,CRE | | PDT | transplant ([facility]) | results section. | | AT,GLUC,CA,AST,ALT,B | | | | | | YUN TOTAL,ALK | | | | | | PHOS,ALB,PROT TOTAL) | | | | | + +--------+ + + + | TACROLIMUS, WHOLE | Routin | 10/26/2016 | S/P allogeneic | Results for this | | BLOOD | e | 9:42 AM | bone marrow | procedure are in the | | | | PDT | transplant ([facility]) | results section. | + +--------+ + + + | PHOSPHORUS, PLASMA | Routin | 10/26/2016 | S/P allogeneic | Results for this | | | e | 9:42 AM | bone marrow | procedure are in the | | | | PDT | transplant ([facility]) | results section. | + +--------+ + + + | BILIRUBIN DIRECT | Routin | 10/26/2016 | S/P allogeneic | Results for this | | | e | 9:42 AM | bone marrow | procedure are in the | | | | PDT | transplant ([facility]) | results section. | + +--------+ + + + | URIC ACID, PLASMA | Routin | 10/26/2016 | S/P allogeneic | Results for this | | | e | 9:42 AM | bone marrow | procedure are in the | | | | PDT | transplant ([facility]) | results section. | + +--------+ + + + | MAGNESIUM, PLASMA | Routin | 10/26/2016 | S/P allogeneic | Results for this | | | e | 9:42 AM | bone marrow | procedure are in the | | | | PDT | transplant ([facility]) | results section. | + +--------+ + + + | LDH TOTAL, PLASMA | Routin | 10/26/2016 | S/P allogeneic | Results for this | | | e | 9:42 AM | bone marrow | procedure are in the | | | | PDT | transplant ([facility]) | results section. | + +--------+ + + + documented in this encounter Results CBC AND AUTO DIFF (10/26/2016 9:42 AM PDT) + + + + + + | Component | Value | Ref Range | Performed | Pathologist | | | | | At | Signature | + + + + + + | WHITE CELL | 11.28 (H) | 3.50 - 10.80 | [facility] | | | COUNT | | K/cu mm | LABORATORY | | | | | | SERVICES, | | | | | | CORE | | + + + + + + | RED CELL | 4.24 (L) | 4.50 - 6.00 [...] + + + + | HEMATOCRIT | 39.8 (L) | 41.0 - 53.0 % | [...] + + + + | MCHC | 33.4 | 33.0 - 35.5 | [facility] | | | | | g/dL | LABORATORY | | | | | | SERVICES, | | | | | | CORE | | + + + + + + | RDW SD | 51.2 (H) | 35.1 - 46.3 fL | [...] + + + + | MPV | 7.9 (L) | 9.7 - 12.3 [...] + + + + | NEUTROPHIL | 75.8 (H) | 50.0 - 70.0 % | [...] + + + | MONOCYTE % | 5.1 | 3.5 - 9.0 % | [facility] [...] + + + + | NEUTROPHIL | 8.55 (H) | 1.80 - 7.70 | [facility] | | | # | | K/cu mm | LABORATORY | | | | | | SERVICES, | | | | | | CORE | | + + + + + + | LYMPHOCYTE | 2.00 | 1.00 - 4.80 | [facility] | | | # | | K/cu mm | LABORATORY | | | | | | SERVICES, | | | | | | CORE | | + + + + + + | MONOCYTE # | 0.57 | 0.10 - 0.90 | [facility] | | | | | K/cu mm | LABORATORY | | | | | | SERVICES, | | | | | | CORE | | + + + + + + | EOS # | 0.07 | 0.00 - 0.50 | [facility] | [...] [facility] | [address] | [place] [address] | | | SERVICES, CORE | [address] | | | + + + + + TACROLIMUS, WHOLE BLOOD (10/26/2016 9:42 AM PDT) + +---------+ + + + | Component | Value | Ref Range | Performed | Pathologist | | | | | At | Signature | + +---------+ + + + | TACROLIMUS | 3.7 (L) | 5.0 - 15.0 | [facility] [...] | Test performed by immunoassay using [employer] Department Clerk i2000. . | [facility] | | Samples [...] [facility] | [address] | [place] [address] | | | SERVICES, SPECIAL | [address] | | | | IMM + COAG | | | | + + + + + LDH TOTAL, PLASMA (10/26/2016 9:42 AM PDT) + +---------+ + + + [...] [facility] | [address] | [place] [address] | | | SERVICES, CORE | [address] | | | + + + + + BILIRUBIN DIRECT (10/26/2016 9:42 AM PDT) + +---------+ + + + [...] + | [facility] | [address] | [place] [address] | | | SERVICES, CORE | [address] | | | + + + + + URIC ACID, PLASMA (10/26/2016 9:42 AM PDT) + +-------+ + + + [...] | + + + + + | [facility] | [address] | [place] [address] | | | SERVICES, CORE | [address] | | | + + + + + PHOSPHORUS, PLASMA (10/26/2016 9:42 AM PDT) + +---------+ + + + [...] [facility] | [address] | [place] [address] | | | SERVICES, CORE | [address] | | | + + + + + MAGNESIUM, PLASMA (10/26/2016 9:42 AM PDT) + +-------+ + + + [...] [facility] | [address] | [place] [address] | | | SERVICES, CORE | [address] | | | + + + + + COMPLETE METABOLIC SET (NA,K,CL,CO2,BUN,CREAT,GLUC,CA,AST,ALT,BILI TOTAL,ALK PHOS,ALB,PROT TOTAL) (10/26/2016 9:42 AM PDT) + +---------+ + + + [...] | | | LABORATORY | | | SYRIAN | | | SERVICES, | | | [...] +---------+ + + + | CALCIUM(ALB | 9.2 | 8.6 - 10.2 | [...] + + + | ANION GAP | 11 | mmol/L | [facility] | | | [...] + + + + + | [facility] [employer] | [address] | [place] [address] | | | SERVICES, CORE | [address] | | | + + + + + documented in this encounter Visit Diagnoses + + | Diagnosis | + + | 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
--- OUTSIDE RECORDS SUMMARY | ~2019-05-17 | XMS | Encounter Summary ---
Demographics + + + | Address | [address] | | | [place] [address] | + + + | Home Phone [...] Team Providers + +------+ + | Care Otolaryngology Surgeon Name | Role | Phone | [...] | | | | | | | [address] | | | | | | | [address] | | | | | | | [place], | | | | | | | [place] | | | | | | | [address] | | | | | | | Phone: | | | | | | | [phone] | | | | | | | Fax: | | | | | | | [phone] | +--------+--------+ + + + + Encounter [...] | | | | [address] | [place], [place] | | | | | [address] | [address] | | | | | [address] Mailcode: | [phone] | | | | | [address] | | | | | | [place], | | | | | | [place] [address] | | | | | | [phone] | | | +--------+---------+ + + + [...] from meeting with them. You can call [phone]. You can ask for Opal short Next visit in 2 weeks Lab on 05/01/2016 Component Date Value GLUCOSE, PLASMA (LAB) 05/01/2016 128* BUN, PLASMA (LAB) 05/01/2016 9 CREATININE PLASMA (LAB) 05/01/2016 0.91 EGFR - HAITIAN 05/01/2016 >60 EGFR NON -HAITIAN 05/01/2016 >60 SODIUM, PLASMA (LAB) 05/01/2016 139 [...] MM URD (DPB1 permissive antigen mismatch, male, 3400-5461-2) Identifying Data: Khurram Kelly is a 25 [...] his L ankle. He was evaluated at [place] [facility]' ED on 06/[address] angiogram [...] CD34, variable CD56, variable CD117, and dim LF271-juhdk mickey; promonocyte immunophenotype (70% by flow): CD11b, [...] to exercise regularly (doing a lot of [employer] - BiBCOMor es in 170s), and has not had [...] CREATININE PLASMA (LAB) 05/01/2016 0.91 EGFR - HAITIAN 05/01/2016 >60 EGFR NON -HAITIAN 05/01/2016 >60 SODIUM, PLASMA (LAB) 05/01/2016 139 [...] year post-transplant, sooner if interval cytopenias 2. Ifmxw-mi-Qkff Disease: Skin bx due to mild rash [...] he was seen in the ED in [place] in late 01/21. Prednisone was increased back [...] --> again encouraged pt to engage with [employer] to establish peer support or AYA support gr oup resources available at [facility] 7. Follow up --> RTC in 2 weeks for repeat visit and lab work, sooner if interval issues Yari Garcia MD, MS Bricklayerhotel service supervisor [facility] [address] [place] [address] documented in this enc ounter Plan of [...] Rd | | | | | | [place], [place] | | | | | | [address] | | | | | | [phone] | | | | | | | [...] may not reflect true | [facility] | | biological changes [...] | | | Act of 1988. The [facility] | | | Diagnostic Center is a fully licensed and/or accredited clinical | | | laboratory under CLIA, CAP, and the [facility]. | | + + + + + + + + | Performing | Address | City/State/Zipcode | Phone Number | | Organization | | | | + + + + + | [facility] | [address] | [place] [address] | | | DIAGNOSTIC | [address] [...] LABORATORY | [address] | [place] [address] | | | SERVICES, CORE | [address] [...] YESSICA LOZA | [address] | [place] [address] | | | SERVICES, CORE | [address] [...] | + + + + + | [facility] | [address] | [place] [address] | | | SERVICES, CORE | [address] [...] [facility] | [address] | [place] [address] | | | SERVICES, CORE | [address] [...] | + + + + + | [facility] | [address] | [place] [address] | | | SERVICES, CORE | [address] [...] | | | LABORATORY | | | HAITIAN | | | SERVICES, | | | [...] | + + + + + | [facility] | [address] | [place] [address] | | | INDRA SHARIF | [address] | | | + + + + + documented in this encounter Visit Diagnoses + + | Diagnosis | + + | 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
--- OUTSIDE RECORDS SUMMARY | ~2019-05-17 | XMS | Encounter Summary ---
Demographics + + + | Address | [address] | | | [place] [address] | + + + | Home Phone [...] Team Providers + +------+ + | Care Fitness And Wellness Coordinator Name | Role | Phone | [...] | both hips | Rd | Rd [place], | | | | | (HCC) | [place], [place] | [place] | | | | | Procedures | [address] | [address] | | | | | REQUEST TO | Phone: | Phone: | | | | | SURGERY | [phone] | [phone] | | | | | [facility] | Fax: | Fax: | | | | | IN TOTAL HIP | [phone] | [phone] | | | | | | | [...] | | | | Mailcode: [id number] | [place], [place] | | | | | [facility] [address] | [address] | | | | | [place], [place] | [phone] | | | | | [address] | | | | | | [phone] | | | +--------+---------+ + + + [...] no obvious loos ening or subsidence. Plan: Khurram is doing quite well after left total [...] [address] | | | | | | [place], [place] | | | | | | [address] | | | | | | [phone] | | | | | | | | +--------+---------+ + + + documented as of this encounter Visit Diagnoses + + | Diagnosis | + + | Hip joint replacement status - Primary Hip joint replacement by other means | + + documented in this encounter
--- OUTSIDE RECORDS SUMMARY | ~2019-05-17 | XMS | Encounter Summary ---
Demographics + + + | Address | [address] | | | [place] [address] | + + + | Home Phone [...] Team Providers + +------+ + | Care Drawbridge Operator Name | Role | Phone | [...] | | | | | remission | [address] | [facility] | | | | | | Phone: | [facility] | | | | | Procedures | [phone] | [place], [place] | | | | | Post BMT | Fax: | [address] | | | | | Auth to | [phone] | Phone: | | | | | included | | [phone] | | | | | facility, | | Fax: | | | | | diagnostics, | | [phone] | | | | | office | [...] at | | | | | | [facility] | | | | | | [address] | | | | | | Wally Burger Mailcode: | | | | | | [facility] | | | | | | [place], | | | | | | [place] [address] | | | | | | [phone] | | | +--------+ + + + [...] Rd | | | | | | [place], [place] | | | | | | [address] | | | | | | [phone] | | | | | | | [...] [place] | [address] | [place], [place] | | | [facility]IE [facility] | [address] | [address] | | | TESTS | | | [...] SORTO | [address] | [place], [place] | | | [facility] POINT OF CARE | [address] | [address] | | | TESTS | | | [...] + + + + + | [facility] | [address] | [place] [address] | | | KOLE, INDRA | WALLY [...]
--- OUTSIDE RECORDS SUMMARY | ~2019-05-17 | XMS | Encounter Summary ---
Demographics + + + | Address | [address] | | | [place] [address] | + + + | Home Phone [...] Providers + +------+ + | Care Ice Carver Name | Role | Phone | + +------+ + | Zayda Hinton | PCP | | + +------+ + Encounter Details +--------+ + + + + | Date | Type | Department | Care Team | Description | +--------+ + + + + | 03/20/ | Pharmacy | Specialty Pharmacy | | | | 2015 | Visit | Services [address] | | | | | | [address] | | | | | | [place], [place] | | | | | | [address] | | | | | | [phone] | | | +--------+ + + + [...] Rd | | | | | | [place], [place] | | | | | | [address] | | | | | | [phone] | | | | | | | | +--------+---------+ + + + documented as of this encounter Visit Diagnoses Not on filedocumented in this encounter"
--- OUTSIDE RECORDS SUMMARY | ~2019-05-17 | XMS | Encounter Summary ---
Demographics + + + | Address | [address] | | | [place] [address] | + + + | Home Phone [...] Providers + +------+ + | Care Hat Steamer Name | Role | Phone | + +------+ + | Pending Pcp Addition | PCP | Unavailable | + +------+ + Encounter Details +--------+ + + + + | Date | Type | Department | Care Team | Description | +--------+ + + + + | 07/19/ | Stage Director | Center for | Yari Garcia MD | | | 2016 | | Hematologic | [address] | | | | | Malignancies at | [address] | | | | | [place] | [place], [place] | | | | | [address] | [address] | | | | | Debi Burger Mailcode: | [phone] | | | | | [facility] | | | | | | [place], | | | | | | [place] [address] | | | | | | [phone] | | | +--------+ + + + [...] 2019 | Visit | Malignancy | [address] [facility] | | | | | | [address] | | | | | | [place], [place] | | | | | | [address] | | | | | | [phone] | | | | | | | | +--------+---------+ + + + documented as of this encounter Visit Diagnoses Not on filedocumented in this encounter"
--- OUTSIDE RECORDS SUMMARY | ~2019-05-17 | XMS | Encounter Summary ---
Demographics + + + | Address | [address] | | | [place] [address] | + + + | Home Phone [...] Team Providers + +------+ + | Care Quantitative Developer Name | Role | Phone | [...] | ic leukemia, | [address] | [facility] | | | | | not having | [address] | [address] | | | | | achieved | [place], [place] | Rd Mailcode: | | | | | remission | [address] | [id number] | | | | | Procedures | Phone: | [place] | | | | | [place] | [phone] | Pavilion | | | | | AZACITIDINE | Fax: | [place], [place] | | | | | INJECTION, 1 | [phone] | [address] | | | | | [place] | | Phone: | | | | | CHM,IV | | [phone] | | | | | INFSN,1 HR | | Fax: | | | | | [place] CHM,IV | | [phone] | | | | | INFSN,ADDL | [...] | | | | | | [facility] [place] | | | | | | [place], | | | | | | [place] [address] | | | | | | [phone] | | | +--------+ + + + [...] instructed to check out at the front counter clerk prior to leaving the clinic. Patient d/c d ambulatory with spouse in stable condition. Next Appointment in [facility] is on 03/22/16 at 9:00 [...] Rd | | | | | | [place], [place] | | | | | | [address] | | | | | | [phone] | | | | | | | [...]
--- OUTSIDE RECORDS SUMMARY | ~2019-05-17 | XMS | Encounter Summary ---
Demographics + + + | Address | [address] | | | [place] [address] | + + + | Home Phone [...] Team Providers + +------+ + | Care Poultry Farmer Name | Role | Phone | [...] Rd | | | | | | [place], [place] | | | | | | [address] | | | | | | [phone] | | | | | | | | +--------+---------+ + + + documented as of this encounter Visit Diagnoses Not on filedocumented in this encounter"
--- OUTSIDE RECORDS SUMMARY | ~2019-05-17 | XMS | Encounter Summary ---
Demographics + + + | Address | [address] | | | [place] [address] | + + + | Home Phone [...] Providers + +------+ + | Care Cream Cheese Maker Name | Role | Phone | [...] | | | | | Malignancies at [facility] | [address] | | | | | [address] | [place], [place] | | | | | Debi Burger Mailcode: | [address] | | | | | [facility] | [phone] | | | | | [place], | | | | | | [place] [address] | | | | | | [phone] | | | +--------+--------+ + + + [...] Rd | | | | | | [place] | | | | | | [address] | | | | | | [phone] | | | | | | | | +--------+---------+ + + + documented as of this encounter Visit Diagnoses Not on filedocumented in this encounter"
--- OUTSIDE RECORDS SUMMARY | ~2019-05-17 | XMS | Encounter Summary ---
Demographics + + + | Address | [address] | | | [place] [address] | + + + | Home Phone [...] Providers + +------+ + | Care Freelance Designer Name | Role | Phone | [...] | | | | | | | [address] | | | | | | | Phone: | | | | | | | [phone] | | | | | | | Fax: | | | | | | | [phone] | +--------+--------+ + + + + Encounter Details +--------+ + + + + | Date | Type | Department | Care Team | Description | +--------+ + + + + | 11/10/ | Clinical | Center for | | Lab Draw (neostar) | | 2016 | Support | Hematologic | | | | | Staff | Malignancies at [facility] | | | | | | [address] | | | | | | Wally Burger Mailcode: | | | | | | [facility] [place] | | | | | | [place], | | | | | | [place] [address] | | | | | | [phone] | | | +--------+ + + + [...] Rd | | | | | | [place], [place] | | | | | | [address] | | | | | | [phone] | | | | | | | [...] SORTO | [address] | [place], [place] | | | RUTHIE CARTER OF [facility] | [address] | [address] | | | TESTS | | | [...] [place] | [address] | [place], [place] | | | RUTHIE CARTER OF [facility]STA | [address] | [address] | | | TESTS | | | [...] | + + + + + | [facility] | [address] | [place] [address] | | | SERVICES, CORE | WALLY [...]
--- OUTSIDE RECORDS SUMMARY | ~2019-05-17 | XMS | Encounter Summary ---
Demographics + + + | Address | [address] | | | [place] [address] | + + + | Home Phone [...] Team Providers + +------+ + | Care Triage Clinician Name | Role | Phone | [...] | | myelomonocyt | [address] | [place] [address] | | | | | ic leukemia, | [facility] | [facility] | | | | | not having | [address] | [address] | | | | | achieved | [place], [place] | Rd Mailcode: | | | | | remission | [address] | [id number] | | | | | Procedures | Phone: | [place] | | | | | [place] | [phone] | Pavilion | | | | | AZACITIDINE | Fax: | [place], [place] | | | | | INJECTION, 1 | [phone] | [address] | | | | | MG [place] | | Phone: | | | | | CHM,IV | | [phone] | | | | | INFSN,1 HR | | Fax: | | | | | [place] CHM,IV | | [phone] | | | | | INFSN,ADDL | [...] change (Trifusion) | | | | [facility] [place] | | | | | | [place], | | | | | | [place] [address] | | | | | | [phone] | | | +--------+ + + + [...] instructed to check out at the front load trash truck driver prior to leavi ng the clinic. Patient [...] 2018 | Visit | Malignancy | [address] [facility] | | | | | | [address] | | | | | | [place], [place] | | | | | | [address] | | | | | | [phone] | | | | | | | [...]
--- OUTSIDE RECORDS SUMMARY | ~2019-05-17 | XMS | Encounter Summary ---
Demographics + + + | Address | [address] | | | [place] [address] | + + + | Home Phone [...] Providers + +------+ + | Care Golf Professional Name | Role | Phone | [...] | | | | not having | [address] | Mailcode: | | | | | achieved | [place] | [facility] | | | | | remission | [address] | [facility] | | | | | | Phone: | Pavilion | | | | | Procedures | [phone] | [place], [place] | | | | | Post BMT | Fax: | [address] | | | | | Auth to | [phone] | Phone: | | | | | included | | [phone] | | | | | facility, | | Fax: | | | | | diagnostics, | | [phone] | | | | | office | [...] | Visit | Hematologic | PA-C [address] [facility] | leukemia (AML), M4 | | | | Malignancies at | [address] | ([facility])- primary | | | | [facility] | [place], [place] | induction failure | | | | [address] [facility] | [address] | (Primary Dx); S/P | | | | W[address] Mailcode: | [phone] | 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 -We'll call you to adjust your Tacrolimus if necessary. -Okay to take Zyprexa 10 mg at bedtime for sleep. Please verify this is the dose you have a t home. -A refill for Oxycodone has been sent to [facility] pharmacy [facility]. -Please call if [...] MM URD (DPB1 permissive antigen mismatch, male, [id number]) Hematologic History: Khurram Kelly is a 25 [...] his L ankle. He was evaluated at [facility] ED on 06/[address] angiogram negative [...] acute myelomonocytic leukemia. 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 Pt was admitted to [facility] on 05/26/15. Peripheral blood was [...] CD34, variable CD56, variable CD117, and dim LZ956-vakws mickey; promonocyte immunophenotype (70% by flow): CD11b, [...] e 1 mg capsule) in the evening. [place] 0.5 mg capsules for future use. TACROLIMUS 1 MG CAPSULE Take 1 mg (one 1 mg capsule) by mouth in the morning and 1 mg (one 1 mg capsule) in the evening. [place] 0.5 mg capsules for future use. TRIAMCINOLONE [...] eruption of lymphocyte recovery and early mild stedq-kyfadv-qaux disease. On 09/13, rash in volved ~15% [...] Saunders PA-C [facility] [place] [address] Mailcode: [id number] [address] documented in this encounter Plan [...] Wally | | | | | | [place], [place] | | | | | | [address] | | | | | | [phone] | | | | | | | [...] (H) | 0 - 206 U/L | [facility] - | | | | | | [place] | | | | | | RUTHIE CARTER | | | | | | OF CARE | | | | | | TESTS | | + +---------+ + + + | MAGNESIUM, | 1.8 | 1.8 - 2.5 mg/dL | [facility] - | | | POC | [...] [place] | [address] | [place], [place] | | | RUTHIE CARTER OF CARE | [facility] | [address] | | | TESTS | | | [...] [place] | [address] | [place], [place] | | | [facility] POINT OF CARE | [address] | [address] | | | TESTS | | | [...] | [facility] | [address] | [place] [address] | | | SERVICES, SPECIAL | WALLY [...] [facility] | [address] | [place] [address] | | | INDRA SHARIF | WALLY [...] | + + + + + | [facility] | [address] | [place] [address] | | | SERVICES, CORE | WALLY [...]
--- OUTSIDE RECORDS SUMMARY | ~2019-05-17 | XMS | Encounter Summary ---
Demographics + + + | Address | [address] | | | [place] [address] | + + + | Home Phone [...] Team Providers + +------+ + | Care Engine Watchman Name | Role | Phone | + [...] | 2015 - | Encounter | [address] | [address] | | | | | Mailcode: [id number] | [address] | | | 07/08/ | | Josie Gunteron | [facility], [place] | | | 2015 | | [place], [place] | [address] | | | | | [address] | [phone] | | | | | [phone] | | | | | | | Lamin Funes MD,PhD | | | | | | [address] | | | | | | [address] | | | | | | [place], [place] | | | | | | [address] | | | | | | [phone] | | | | | | | | | | | | Yung Zhao MD | | | | | | [address] | | | | | | [address] | | | | | | [place], [place] | | | | | | [address] | | | | | | [phone] | | | | | | | | | | | | Lashonda Chapa MD | | | | | | [address] | | | | | | [address] [place], | | | | | | [place] [address] | | | | | | [phone] | | | | | | | | | | | | Thaddeus Rios, | | | | | | ,PhD [address] | | | | | | [address] | | | | | | [place], [place] | | | | | | [address] | | | | | | [phone] | | | | | | | | | | | | Sekou Blanchard MD | | | | | | [address] | | | | | | Debi Calderon [place], | | | | | | [place] [address] | | | | | | [phone] | | | | | | | [...] Hospital day 43 Attending: Sekou Blanchard MD [facility] physician: Dr. Yari Garcia. PCP: Pending [...] Instructions to patient: Appointment for labs at [facility] 2x/week starting 07/10/2015 Appointment to see Malinda Garcia 07/15/2015 Weekly PICC line dressing change and care weekly at [facility] SUMMARY OF PATIENT'S HOSPITALIZATION History of present illness: (From H&P) Mr. Kelly is 24 yo M with pmhx of pericarditis and new diagnosis of acute leukemia ad mitted for induction and management. Had been in usual state of [facility] until 03/13/15 (the night of [...] over his left ankle, seen in the [facility] emergency room on April 19, CT angiogram [...] that showed AML. He was admitted to [facility] on 05/26/15. Rev iew of his outside [...] Follow-up: 07/10/2015 - Appointment for labs at [facility] then 2x/week 07/15/2015 - Appointment to [...] Orders and Instructions Call the BMT clinic ([phone]) or BMT person on-call ([phone]) for: Any temp > 100.4 Nausea/vomiting unresponsive [...] if you have any questions! BMT CLINIC ([facility]) during clinic hours (M-F 8:30-4:30): [phone] BMT CLINIC ([facility]) at all other times: [phone] 14KPV: [phone] How was your stay with us? Is there anything we could have done differently to improve your time here on 14K? Discharge Nurse: Laura Guzmán RN Date: 07/08/2015 Discharge Time: 3:10 PM documented in this encounter Progress Notes Amira Lundy, CATERING CONVENTION SERVICES MANAGER - 07/07/2015 4:13 PM PSTFormatting of this note might be diffe rent from the original. Daily NPP Note - Chemotherapy Admit [facility] Attending: Sekou Blanchard MD [facility] physician: Dr. Yari Garcia. PCP: Pending [...] management. Had been in usual state of [facility] 03/13/15 (the night of his wedding) at [...] over his left ankle, seen in the [facility]' emergency room on 04/19/15. CT angiogram [...] done at OSH 05/19/15, slides reviewed by [facility] and c/w Acute Myelomonocytic Leukemia in a [...] with Dr. Garcia on 07/15/15. OR[place] Bianchi [place] [id number] [facility] Mailcode: Kpv14 [place] [address] Sekou Castro MD - 07/07/2015 2:41 PM [...] that showed AML. He was admitted to [facility] on 05/26/15. Rev iew of his outside [...] for Hematologic Malignancies Attending: Sekou Blanchard MD [facility] physician: Dr. Yari Garcia. PCP: Pending [...] management. Had been in usual [facility] 03/13/15 (the night of his wedding) at [...] over his left ankle, seen in the [facility]' emergency room on 04/19/15. CT angiogram [...] with Dr. Garcia on 07/15/15. ORLY Bianchi [facility] 14K [address] [facility] Mailcode: Kpv14 [place], [place] [id number] Sekou Castro MD - 07/06/2015 12:00 PM [...] that showed AML. He was admitted to [facility] on 05/26/15. Rev iew of his outside [...] MD [facility] Amira Dean CATERING CONVENTION SERVICES MANAGER - 07/05/2015 11:27 AM PST Daily NPP Note - Chemotherapy Admit [facility] Attending: Sekou Blanchard MD [facility] physician: Dr. Yari Garcia. PCP: Pending [...] management. Had been [facility] 03/13/15 (the night of his wedding) at [...] over his left ankle, seen in the [facility]'s emergency room on 04/19/15. CT angiogram [...] with Dr. Garcia on 07/15/15. ORLY Bianchi [facility] 14K [address] [facility] Mailcode: Kpv14 [place] [address] Sekou Castro MD - 07/05/2015 10:48 AM [...] that showed AML. He was admitted to [facility] on 05/26/15. Rev iew of his outside [...] care plan for today. SEKOU BLANCHARD MD [place] [facility] Kary Francis PA - 07/04/2015 9:21 AM PST Daily NPP Note - Chemotherapy Admit [facility] Attending: Sekou Blanchard MD [facility] physician: Dr. Yari Garcia. PCP: Pending [...] management. Had been in [facility] 03/13/15 (the night of his wedding) at [...] over his left ankle, seen in the [facility]'s emergency room on 04/19/15. CT angiogram [...] 07/15/15. [facility] [address] [place] [address] Mailcode: Uhn73a [facility] [address] Sekou Castro MD - 07/04/2015 8:46 AM [...] that showed AML. He was admitted to [facility] on 05/26/15. Rev iew of his outside [...] for Hematologic Malignancies Attending: Sekou Blanchard MD [facility] physician: Dr. Yari Garcia. PCP: Pending [...] management. Had been [facility] 03/13/15 (the night of his wedding) at [...] over his left ankle, seen in the [facility]'s emergency room on 04/19/15. CT angiogram [...] 07/15/15. [facility] [address] [place] [address] Mailcode: Uhn73a [facility] [address] Sekou Castro MD - 07/03/2015 11:24 AM [...] that showed AML. He was admitted to [facility] on 05/26/15. Rev iew of his outside [...] today. Thaddeus Rios DO, PhD (cell phone [phone]) Attending physician s total time is 35 minutes, >50% spent counseling and coordination of care. Today, as part of my counseling and coordination of care, I reviewed data, reviewed today's plan, and discussed renal insufficiency work up and hydration plan. [facility] DEPARTMENT: [id number] - [facility] Place of Service: - Inpatient Date of Service: 07/02/2015 Modifiers: None Suggested CPT: 20013 - Subsequent, Detailed/High complex 35 min ######################################################### [...] 33.7 06/13/2015 FIBRINOGEN 201 06/13/2015 Femi Dean, CATERING CONVENTION SERVICES MANAGER - 07/02/2015 10:11 AM PSTFormatting of this note might be different from the orig inal. Daily NPP Note - Chemotherapy Admit [facility] Attending: Thaddeus Rios MD [facility] physician: Dr. Yari Garcia. PCP: Pending [...] about being away from his family for [place]. Objective: Last Vitals: BP 125/64 | Pulse [...] management. Had been [facility] 03/13/15 (the night of his wedding) at [...] over his left ankle, seen in the [facility]'s emergency room on 04/19/15. CT angiogram [...] done at OSH 05/19/15, slides reviewed by [facility] and c/w Acute Myelomonocytic Leukemia in a [...] daily x 7 days. -Re-induction chemotherapy regimen: [facility] started 06/11/15 -Cytarabine 3000 mg/m2 over [...] with Dr. Garcia on 07/15/15. ORLY Bianchi [address] Mailcode: [facility] [place] [address] Thaddeus Mullen DO,PhD - 07/01/2015 12:04 PM PSTFormatting of this note might be different from the orig inal. 07/01/2015 Hematologic Malignancies/Blood and marrow Transplant Attending Note Brief assessment/plan: Pt is a 24 year old male with AML admitted on 05/26/2015 for work-up and initial treatment. Hospital course has been complicated by refractory disease at day 14 evaluation after 7+3, proceeded to [facility]. Also has ongoing parotiditis but overall [...] today. Thaddeus Rios DO, PhD (cell phone [phone]) Attending physician s total time is 25 minutes, >50% spent counseling and coordination of care. Today, as part of my counseling and coordination of care, I reviewed data, reviewed today's plan, and discussed counts today and plan. [facility] DEPARTMENT: [id number]- [facility] FACULTY MPV Place of Service:- Inpatient Date of Service: 07/01/2015 Suggested CPT:85286 - Subsequent, Exp Prob Foc/Mod Complex 25 [...] 33.7 06/13/2015 FIBRINOGEN 201 06/13/2015 emi Lundy, CATERING CONVENTION SERVICES MANAGER - 07/01/2015 11:05 AM PSTFormatting of this note might be different from the orig inal. Daily NPP Note - Chemotherapy Admit [facility] Attending: Thaddeus Rios MD [facility] physician: Dr. Yari Garcia. PCP: Pending [...] management. Had been [facility] 03/13/15 (the night of his wedding) at [...] over his left ankle, seen in the [facility]' emergency room on 04/19/15. CT angiogram [...] with Dr. Garcia on 07/15/15. ORLY Bianchi [facility] 14K [address] [facility] Mailcode: v14 [place] [address] russell, ORLY Farah - 06/30/2015 2:17 PM PST Daily NPP Note - Chemotherapy Admit [facility] Attending: Thaddeus Rios MD [facility] physician: Dr. Yari Garcia. PCP: Pending [...] management. Had been [facility] 03/13/15 (the night of his wedding) at [...] over his left ankle, seen in the [facility]'s emergency room on 04/19/15. CT angiogram [...] done at OSH 05/19/15, slides reviewed by [facility] and c/w Acute Myelomonocytic Leukemia in a [...] eligible for early disc harge. ORLY Bianchi [facility] 14K [address] [facility] Mailcode: Kpv14 [place] [address] ao, Thaddeus Short DO,PhD - 06/30/2015 12:56 PM PSTFormatting of this note might be different from the orig inal. 06/30/2015 Hematologic Malignancies/Blood and marrow Transplant Attending Note Brief assessment/plan: Pt is a 24 year old male with AML admitted on 05/26/2015 for work-up and initial treatment. Hospital course has been complicated by refractory disease at day 14 evaluation after 7+3, proceeded to [facility]. Also has ongoing parotiditis but overall [...] today. Thaddeus Rios DO, PhD (cell phone [phone]) Attending physician s total time is 25 minutes, >50% spent counseling and coordination of care. Today, as part of my counseling and coordination of care, I reviewed data, reviewed today's plan, and discussed early discharge program if he shows signs of active count recove ry. [facility] DEPARTMENT: [id number]- [facility] Place of Service:- Inpatient Date of Service: 06/30/2015 Suggested CPT:46197 - Subsequent, Exp Prob Foc/Mod Complex 25 [...] day 14 evaluation after 7+3, proceeded to [facility]. Also has ongoing parotiditis but overall [...] today. Thaddeus Rios DO, PhD (cell phone [phone]) Attending physician s total time is 25 minutes, >50% spent counseling and coordination of care. Today, as part of my counseling and coordination of care, I reviewed data, reviewed today's plan, and discussed skin care and early counts. [facility] DEPARTMENT: [id number]- [facility] Place of Service:- Inpatient Date of Service: 06/29/2015 Suggested CPT:04308 - Subsequent, Exp Prob Foc/Mod Complex 25 [...] 33.7 06/13/2015 FIBRINOGEN 201 06/13/2015 Robyn Lainez, DELIVERY ROOM SUPERVISOR - 06/29/2015 11:02 AM PST . Daily NPP Note - Chemotherapy Admit [facility] Attending: Thaddeus Rios MD [facility] physician: Dr. Yari Garcia. PCP: Pending Pcp ADDITION Date of Admission: 05/26/2015 Hematologic Malignancy: AML Reason for admission: Work-up and Induction Chemotherapy 24 Hour Events/Current Daily Plan: -Acute Myelomonocytic Leukemia, normal cytogenetics, [facility] genetrails +NRAS (40%). S/p 3+7 i nduction. [...] management. Had been [facility] 03/13/[facility] (the night of his wedding) at [...] over his left ankle, seen in the [facility]'s emergency room on 04/19/15. CT angiogram [...] for early disc harge. REBECCA Pérez NP [place] [address] [facility] Mailcode: Kpv14 [place], [place] [id number] Paz, Thaddeus Short DO,PhD - 06/28/2015 4:23 PM PST . 06/28/2015 Hematologic Malignancies/Blood and marrow Transplant Attending Note Brief assessment/plan: Pt is a 24 year old male with AML admitted on 05/26/2015 for work-up and initial treatment. Hospital course has been complicated by refractory disease at day 14 evaluation after 7+3, proceeded to [facility]. Also has ongoing parotiditis but overall [...] today. Thaddeus Rios DO, PhD (cell phone [phone]) Attending physician s total time is 35 minutes, >50% spent counseling and coordination of care. Today, as part of my counseling and coordination of care, I reviewed data, reviewed today's plan, and discussed period of count recovery expected. [facility] DEPARTMENT: [id number] - [facility] M[facility] Place of Service: - Inpatient Date of Service: 06/28/2015 Modifiers: None Suggested CPT: 36856 - Subsequent, Detailed/High complex 35 min ######################################################### [...] 33.7 06/13/2015 FIBRINOGEN 201 06/13/2015 Robyn Lainez, DELIVERY ROOM SUPERVISOR - 06/28/2015 10:20 AM PST . Daily NPP Note - Chemotherapy Admit [facility] Attending: Thaddeus Rios MD [facility] physician: Dr. Yari Garcia. PCP: Pending Pcp ADDITION Date of Admission: 05/26/2015 Hematologic Malignancy: AML Reason for admission: Work-up and Induction Chemotherapy 24 Hour Events/Current Daily Plan: -Acute Myelomonocytic Leukemia, normal cytogenetics, [facility] genetrails +NRAS (40%). S/p 3+7 i nduction. [...] management. Had [facility] 03[facility] (the night of his wedding) at [...] over his left ankle, seen in the [facility]' emergency room on 04/19/15. CT angiogram [...] daily x 7 days. -Re-induction chemotherapy regimen: [facility] started 06/11/15 -Cytarabine 3000 mg/m2 over [...] for another ~1 week. REBECCA Pérez NP [facility] 14K [address] [facility] Mailcode: [facility] [place] [address] urmeister, JULIANA Card - 06/27/2015 5:17 PM PSTFormatting of this note might be different from the origi nal. Daily NPP Note - Chemotherapy Admit [facility] Attending: Thaddeus Rios MD [facility] physician: Dr. Yari Garcia. PCP: Pending Pcp ADDITION Date of Admission: 05/26/2015 Hematologic Malignancy: AML Reason for admission: Work-up and Induction Chemotherapy 24 Hour Events/Current Daily Plan: -Acute Myelomonocytic Leukemia, normal cytogenetics, [facility] genetrails +NRAS (40%). S/p 3+7 i nduction. [...] management. Had been [facility] 03/13/[facility] (the night of his wedding) at [...] over his left ankle, seen in the [facility]'s emergency room on 04/19/15. CT angiogram [...] done at OSH 05/19/15, slides reviewed by [facility] and c/w Acute Myelomonocytic Leukemia in a [...] daily x 7 days. -Re-induction chemotherapy regimen: [facility] started 06/11/15 -Cytarabine 3000 mg/m2 over [...] week. [facility] [address] [place] [address] Mailcode: Uhn73a [facility] [address] abriel, Thaddeus Short DO,PhD - 06/27/2015 3:04 PM PSTFormatting of this note might be different from the origi nal. 06/27/2015 Hematologic Malignancies/Blood and marrow Transplant Attending Note Brief assessment/plan: Pt is a 24 year old male with AML admitted on 05/26/2015 for work-up and initial treatment. Hospital course has been complicated by refractory disease at day 14 evaluation after 7+3, proceeded to [facility]. Also has ongoing parotiditis but overall [...] today. Thaddeus Rios DO, PhD (cell phone [phone]) Attending physician s total time is 35 minutes, >50% spent counseling and coordination of care. Today, as part of my counseling and coordination of care, I reviewed data, reviewed today's plan, and discussed supportive care. [facility] DEPARTMENT: [id number]- [facility] FACULT[facility] MP Place of Service:- Inpatient Date of Service: 06/27/2015 Suggested CPT:40952 - Subsequent, Exp Prob Foc/Mod Complex 25 [...] for Hematologic Malignancies Attending: Thaddeus Rios MD [facility] physician: Dr. Yari Garcia. PCP: Pending [...] management. [facility] 03/13/15 (the night of his wedding) at [...] over his left ankle, seen in the [facility]'s emergency room on 04/19/15. CT angiogram [...] weeks. [facility] [address] [facility] Mailcode: Uhn73a [facility] [address] Thaddeus Mullen DO,PhD - 06/26/2015 2:45 PM [...] on floor. His parotid gland s are puffer tender especially left > right. I am [...] managed. Thaddeus Rios DO, PhD (cell phone [phone]) Attending physician s total time is 35 minutes, >50% spent counseling and coordination of care. Today, as part of my counseling and coordination of care, I reviewed data, reviewed today's plan, and discussed overall plan. [facility] DEPARTMENT: [id number] - [facility] M[facility] Place of Service: - Inpatient Date of Service: 06/26/2015 Modifiers: None Suggested CPT: 03090 - Subsequent, Detailed/High complex 35 min ######################################################### [...] Daily Plan: -Acute Myelomonocytic Leukemia, normal cytogenetics, [facility] genetrails +NRAS (40%). S/p 3+7 i nduction. [...] management. [facility] 03[facility] (the night of his wedding) at [...] over his left ankle, seen in the [facility]' emergency room on 04/19/15. CT angiogram [...] weeks. [facility] [address] [place] [address] Mailcode: Uhn[address] [facility] [id number] Lashonda Rodriguez MD - 06/25/2015 12:47 PM PSTHematologic [...] imaging if pain increasing. Lashonda Chapa MD [facility] [address] [place] [address] Mailcode: Kpv14 [place] [address] Robyn Lainez N P - 06/24/2015 8:43 AM PST Daily NPP Note - Chemotherapy Admit [facility] Attending: Lashonda Chapa MD PCP: Pending Pcp ADDITION Date of Admission: 05/26/2015 Hematologic Malignancy: AML Reason for admission: Work-up and Induction Chemotherapy 24 Hour Events/Current Daily Plan: -Acute Myelomonocytic Leukemia, normal cytogenetics, [facility] genetrails +NRAS (40%). S/p 3+7 i nduction. [...] management. [facility] 03/13/[facility] (the night of his wedding) at [...] over his left ankle, seen in the [facility]' emergency room on 04/19/15. CT angiogram [...] for another 1-2 weeks. REBECCA Pérez NP [address] Mailcode: [place] [address] Lashonda Rodriguez M D - 06/24/2015 8:31 [...] to [facility]. Oxycodone PRN. Lashonda Chapa MD [facility] [address]X [facility] [facility] Mailcode: [facility] [place] [address] Lashonda Rodriguez MD - 1 08/24/2014 5:51 [...] Resolving. Skin nodules resolved. Lashonda Chapa MD [facility] 14K [address] [facility] Mailcode: [place] [address] Robyn Lainez N P - 06/23/2015 11:30 AM PST Daily NPP Note - Chemotherapy Admit [facility] Attending: Lashonda Chapa MD PCP: Pending Pcp ADDITION Date of Admission: 05/26/2015 Hematologic Malignancy: AML Reason for admission: Work-up and Induction Chemotherapy 24 Hour Events/Current Daily Plan: -Acute Myelomonocytic Leukemia, normal cytogenetics, [facility] genetrails +NRAS (40%). S/p 3+7 i nduction. [...] management. [facility] 03[facility]13/[facility] (the night of his wedding) at [...] over his left ankle, seen in the [facility] emergency room on 04/19/15. CT angiogram [...] for another 1-2 weeks. REBECCA Pérez NP [place] [address] [place] [address] Mailcode: [place] [id number] Lashonda Rodriguez M D - 06/22/2015 12:15 [...] AraC. Oxycodone PRN. Resolving. Lashonda Chapa MD [place] [address] [facility] [facility] Mailcode: Kp4 [place] [id number] eRobyn stevens, N P - 06/22/2015 9:11 AM PST Daily NPP Note - Chemotherapy Admit [facility] Attending: Lashonda Chapa MD PCP: Pending Pcp ADDITION Date of Admission: 05/26/2015 Hematologic Malignancy: AML Reason for admission: Work-up and Induction Chemotherapy 24 Hour Events/Current Daily Plan: -Acute Myelomonocytic Leukemia, normal cytogenetics, [facility] genetrails +NRAS (40%). S/p 3+7 i nduction. [...] management. [facility] 03/13/15 (the night of his wedding) at [...] over his left ankle, seen in the [facility] emergency room on 04/19/15. CT angiogram [...] done at OSH 05/19/15, slides reviewed by [facility] and c/w Acute Myelomonocytic Leukemia in a [...] daily x 7 days. -Re-induction chemotherapy regimen: [facility] started 06/11/15 -Cytarabine 3000 mg/m2 over [...] for another 1-2 weeks. REBECCA Pérez NP [address] Mailcode: Kpv14 [place] [address] Lashonda Rodriguez M D - 06/21/2015 10:50 [...] to [facility]. Oxycodone PRN. Lashonda Chapa MD [facility] [address]K [address] [facility] Mailcode: [facility] [place], [place] [id number] obyn Contreras N P - 06/21/2015 10:03 AM PST Daily NPP Note - Chemotherapy Admit [facility] Attending: Lashonda Chapa MD PCP: Pending Pcp ADDITION Date of Admission: 05/26/2015 Hematologic Malignancy: AML Reason for admission: Work-up and Induction Chemotherapy 24 Hour Events/Current Daily Plan: -Acute Myelomonocytic Leukemia, normal cytogenetics, [facility] genetrails +NRAS (40%). S/p 3+7 i nduction. [...] management. [facility] 03[facility]13/15 (the night of his wedding) at [...] over his left ankle, seen in the [facility]'s emergency room on 04/19/15. CT angiogram [...] for another ~2 weeks. REBECCA Pérez NP [facility] [address]K [address] [facility] Mailcode: Kpv14 [place], [place] [id number] Latonya Wilkerson ANP - 06/20/2015 2:04 PM PST Daily NPP Note - Chemotherapy Admit [facility] Attending: Lashonda Chapa MD PCP: Pending Pcp ADDITION Date of Admission: 05/26/2015 Hematologic Malignancy: AML Reason for admission: Work-up and Induction Chemotherapy 24 Hour Events/Current Daily Plan: -Acute Myelomonocytic Leukemia, normal cytogenetics, [facility] genetrails +NRAS (40%). S/p 3+7 i nduction. [...] management. Had been in usual [facility] 03/13/15 (the night of his wedding) at [...] over his left ankle, seen in the [facility]'s emergency room on 04/19/15. CT angiogram [...] daily x 7 days. -Re-induction chemotherapy regimen: [facility] started 06/11/15 -Cytarabine 3000 mg/m2 over [...] for another ~3 weeks. RONALD Merrill ANP [address] [facility] Mailcode: Kpv14 [place] [address] Lashonda Rodriguez MD - 06/20/2015 9:57 AM [...] to AraC. Oxycodone PRN. Lashonda Chapa MD [facility] 14K [address] [facility] Mailcode: Kpv14 [place] [address] Kary Francis PA - 06/19/2015 12:59 PM PST Daily NPP Note - Chemotherapy Admit [facility] Attending: Lashonda Chapa MD PCP: Pending Pcp ADDITION Date of Admission: 05/26/2015 Hematologic Malignancy: AML Reason for admission: Work-up and Induction Chemotherapy 24 Hour Events/Current Daily Plan: -Acute Myelomonocytic Leukemia, normal cytogenetics, [facility] genetrails +NRAS (40%). S/p 3+7 i nduction. [...] management. [facility] been [facility] 03/13/15 (the night of his wedding) at [...] over his left ankle, seen in the [facility]'s emergency room on 04/19/15. CT angiogram [...] daily x 7 days. -Re-induction chemotherapy regimen: [facility] started 06/11/15 -Cytarabine 3000 mg/m2 over [...] weeks. [facility] [address] [place] [address] Mailcode: Uhn73a [facility] [phone] Lashonda Rodriguez MD - 06/19/2015 11:21 AM PSTHematologic [...] ENT consult. Suspec edward due to AraC. Lashonda Chapa MD [facility] 14K [address] [facility] Mailcode: Kpv14 [place] [address] Richa Plummer Md 06/19/2015 11:14 AM PST [...] pect due to AraC. Lashonda Medvedova, MD [facility] 14K [address] [facility] Mailcode: Kpv14 [place] [address] Lainey Silva MD - 06/18/2015 11:02 AM [...] Garcia MD, 25 mg at 06/17/15 2319 [id number] (SPECIAL MOUTHWASH) suspension (compound) 5-10 mL, 5-10 [...] no edema Line Site: E PICC site quinter Diagnostic Tests: Lab Results Component Value Date [...] Will follow with you. Lainey Arenas MD [place] [id number] [facility] Mailcode: Kpv14 [place] [address] Sterling Espinosa MD - 06/18/2015 9:27 AM [...] R2, Department of Otolaryngology/Head & Neck Surgery On License Of [facility] Pager [phone] Robyn Lainez N P - 06/18/2015 9:13 AM PST Daily NPP Note - Chemotherapy Admit [facility] Attending: Lolis Merritt MD PCP: Pending Pcp ADDITION Date of Admission: 05/26/2015 Hematologic Malignancy: AML Reason for admission: Work-up and Induction Chemotherapy 24 Hour Events/Current Daily Plan: -Acute Myelomonocytic Leukemia, normal cytogenetics, [facility] genetrails +NRAS (40%). S/p 3+7 i nduction. [...] management. [facility] 03/13/15 (the night of his wedding) at [...] over his left ankle, seen in the [facility]' emergency room on 04/19/15. CT angiogram [...] daily x 7 days. -Re-induction chemotherapy regimen: [facility] started 06/11/15 -Cytarabine 3000 mg/m2 over [...] admission for induction chemotherapy. REBECCA Pérez NP [facility] [address]K [address] [facility] Mailcode: Kpv14 [place] [address] Lainey Silva MD - 06/17/2015 10:05 PM [...] resume atbx, ENT consult. Lashonda Chapa MD [address] [facility] Mailcode: [facility] [place] [address] obyn Contreras N P - 06/17/2015 1:50 PM PST Daily NPP Note - Chemotherapy Admit [facility] Attending: Lolis Merritt MD PCP: Pending Pcp ADDITION Date of Admission: 05/26/2015 Hematologic Malignancy: AML Reason for admission: Work-up and Induction Chemotherapy 24 Hour Events/Current Daily Plan: -Acute Myelomonocytic Leukemia, normal cytogenetics, [facility] genetrails 05/26 PENDING. S/p 3+7 induction. Day [...] management. [facility] 03/13/15 (the night of his wedding) at [...] over his left ankle, seen in the [facility]'s emergency room on 04/19/15. CT angiogram [...] done at OSH 05/19/15, slides reviewed by [facility] and c/w Acute Myelomonocytic Leukemia in a [...] daily x 7 days. -Re-induction chemotherapy regimen: [facility] started 06/11/15 -Cytarabine 3000 mg/m2 over [...] admission for induction chemotherapy. REBECCA Pérez NP [facility] [address]K [address] [facility] Mailcode: [facility] [place] [address] eterson, Robyn Hernandez NP - 06/16/2015 2:46 PM PST . Daily NPP Note - Chemotherapy Admit [facility] Attending: Lolis Merritt MD PCP: Pending Pcp ADDITION Date of Admission: 05/26/2015 Hematologic Malignancy: AML Reason for admission: Work-up and Induction Chemotherapy 24 Hour Events/Current Daily Plan: -Acute Myelomonocytic Leukemia, normal cytogenetics, [facility] genetrails PENDING. S/p 3+7 induc tion. Day [...] management. Had been in usual state of [facility] [place] 03/13/15 (the night of his wedding) [...] over his left ankle, seen in the [facility]' emergency room on 04/19/15. CT angiogram [...] done at OSH 05/19/15, slides reviewed by [facility] and c/w Acute Myelomonocytic Leukemia in a [...] admission for induction chemotherapy. REBECCA Pérez NP [facility] 14Z [address] [facility] Mailcode: [facility] [place] [address] Lolis Gaxiola MD - 06/16/2015 12:15 PM PSTHematologic Malignancies/Bone Marrow Transplant Inpatient At [facility] Note: Hospital course summary: Acute Myelomonocytic Leukemia, normal cytogenetics, [facility] genetrails PENDING. S/p 3+7 induct ion. Day [...] am. -continue levofloxacin. Lolis Merritt MD pager: [phone] Latonya Wilkerson ANP - 06/15/2015 1:46 PM PST Daily NPP Note - Chemotherapy Admit [facility] Attending: Lolis Merritt MD PCP: Pending Pcp ADDITION Date of Admission: 05/26/2015 Hematologic Malignancy: AML Reason for admission: Work-up and Induction Chemotherapy 24 Hour Events/Current Daily Plan: -Acute Myelomonocytic Leukemia, normal cytogenetics, [facility] genetrails PENDING. S/p 3+7 induc tion. Day [...] management. [facility] 03/13/15 (the night of his wedding) at [...] over his left ankle, seen in the [facility]' emergency room on 04/19/15. CT angiogram [...] admission for induction chemotherapy. RONALD Merrill ANP [facility] [address]K [address] [facility] Mailcode: Kpv14 [place] [address] Lolis Gaxiola MD - 06/15/2015 11:46 AM PSTHematologic Malignancies/Bone Marrow Transplant Inpatient Atten ding Progress Note: Hospital course summary: Acute Myelomonocytic Leukemia, normal cytogenetics, [facility] genetrails PENDING. S/p 3+7 induct ion. Day [...] -continue levo today. Lolis Merritt MD pager: [phone] Rosa Francis PA - 06/14/2015 3:01 PM [...] management. [facility] 03/13/15 (the night of his wedding) at [...] over his left ankle, seen in the [facility]' emergency room on 04/19/15. CT angiogram [...] done at OSH 05/19/15, slides reviewed by [facility] and c/w Acute Myelomonocytic Leukemia in a [...] sialogogues, pain control, hydration) -was on Morphine RN TRAUMA (06/07-06/11), now stopped with improvement in swelling [...] Kary Tracey PA-C [facility] [facility] Mailcode: Uhn73a [place] [address] Debby Gaxiola MD - 06/14/2015 8:28 AM PSTHematologic Malignancies/Bone Marrow Transplant Inpatient Attending Progress Note: Hospital course summary: Acute Myelomonocytic Leukemia, normal cytogenetics, [facility] genetrails PENDING. S/p 3+7 induct ion. Day [...] decrease intravenous fluids. Lolis Merritt MD pager: [phone] osa Tracey PA - 06/13/2015 1:45 PM PSTFormatting of this note might be different from the origi nal. Daily NPP Note - Chemotherapy Admit [facility] Attending: Lolis Merritt MD PCP: Pending Pcp ADDITION Date of Admission: 05/26/2015 Hematologic Malignancy: AML Reason for admission: Work-up and Induction Chemotherapy 24 Hour Events/Current Daily Plan: -Acute Myelomonocytic Leukemia, normal cytogenetics, [facility] genetrails PENDING. S/p 3+7 induc tion. Day 14 bmbx with residual AML (50-60% cellularity with 50% blasts), now day 3 HAM re-i nduction. -Pancytopenic: as anticipated with recent chemo. Standard transfusion parameters. Transfus e platelets today. -Lytes: Standard electrolyte repletion parameters. Replace Phos today. -Left sided parotitis: at worst on 06/07, now improved, almost resolved. Off RN TRAUMA as of 06/11 . Stopped vanco 06/12. [...] management. [facility] 03/13/15 (the night of his wedding) at [...] over his left ankle, seen in the [facility]'s emergency room on 04/19/15. CT angiogram [...] sialogogues, pain control, hydration) -was on Morphine RN TRAUMA (06/07-06/11), now stopped with improvement in swelling [...] chemotherapy. JULIANA Moya-C [facility] [address] [place] [address] Mailcode: Uhn73a [facility] [phone] Debby Gaxiola MD - 06/13/2015 10:31 AM PSTHematologic Malignancies/Bone Marrow Transplant Inpatient Attending Progress Note: Hospital course summary: Acute Myelomonocytic Leukemia, normal cytogenetics, [facility] genetrails PENDING. S/p 3+7 induct ion. Day [...] to levo tomorrow. Lolis Merritt MD pager: [phone] Lainey Silva MD - 06/13/2015 10:07 AM [...] mg, intravenous, Q4H PRN, Yari Garcia MD [id number] (SPECIAL MOUTHWASH) suspension (compound) 5-10 mL, 5-10 [...] no edema Line Site: E PICC site quinter Diagnostic Tests: Lab Results Component Value Date [...] Please call if any additional ID questions/concerns. Lainey Arenas MD [facility] [address]K [address] [facility] Mailcode: Kpd94 [place] [address] yung, JULIANA Bird - 06/12/2015 4:15 PM PSTFormatting of this note might be different from the origin al. Daily NPP Note - Chemotherapy Admit [facility] Attending: Lolis Merritt MD PCP: Pending Pcp ADDITION Date of Admission: 05/26/2015 Hematologic Malignancy: AML Reason for admission: Work-up and Induction Chemotherapy 24 Hour Events/Current Daily Plan: -Acute Myelomonocytic Leukemia, normal cytogenetics, [facility] genetrails PENDING. S/p 3+7 induc tion. Day 14 bmbx with residual AML (50-60% cellularity with 50% blasts), now day 2 HAM re-i nduction. -Pancytopenic: as anticipated with recent chemo. Standard transfusion parameters. None nee ded today. -Lytes: Standard electrolyte repletion parameters. No replacements required today. -Left sided parotitis: at worst on 06/07, now improved, almost resolved. Off RN TRAUMA as of 06/11 . Stop vanco today. [...] management. [facility] 03/13[facility] (the night of his wedding) at [...] over his left ankle, seen in the [facility]'s emergency room on 04/19/15. CT angiogram [...] sialogogues, pain control, hydration) -was on Morphine RN TRAUMA (06/07-06/11), now stopped with improvement in swelling [...] chemotherapy. [facility] [address] [place] [address] Mailcode: Uhn73a [facility] [phone] Debby Gaxiola MD - 06/12/2015 10:38 AM PSTHematologic Malignancies/Bone Marrow Transplant Inpatient Attending Progress Note: Hospital course summary: Acute Myelomonocytic Leukemia, normal cytogenetics, [facility] genetrails PENDING. S/p 3+7 induct ion. Day [...] nodules Prophylactic antibiotic Lolis Merritt MD pager: [phone] Yung Rodas MD - 06/11/2015 5:52 PM [...] ongoing oral pain- but better; Still on RN TRAUMA - transitioning to po analgesia,but slowed b [...] and we will proceed. Yung Zhao MD [facility] [address]K [address] [facility] Mailcode: Kpv14 [place] [address] Em Vinson PA- C - 06/11/2015 3:41 PM PST Daily NPP Note - Chemotherapy Admit [facility] Attending: Yung Zhao MD PCP: Pending Pcp ADDITION Date of Admission: 05/26/2015 Hematologic Malignancy: AML Reason for admission: Work-up and Induction Chemotherapy 24 Hour Events/Current Daily Plan: -Acute Myelomonocytic Leukemia, normal cytogenetics, [facility] genetrails PENDING. S/p 3+7 induc tion. Day [...] with mild swell ing and tenderness, off RN TRAUMA as of 06/11. Continue Zosyn, Vanco IV [...] management. [facility] 03/13[facility] (the night of his wedding) at [...] over his left ankle, seen in the [facility] emergency room on 04/19/15. CT angiogram negative [...] done at OSH 05/19/15, slides reviewed by [facility] and c/w Acute Myelomonocytic Leukemia in a [...] daily x 7 days. -Re-induction chemotherapy regimen: [facility] started 06/11/15 -Cytarabine 3000 mg/m2 over [...] on day 4-6 -Chemo Day: 14 (3+7)/ ([facility]) Patient is a candidate for transplant [...] sialogogues, pain control, hydration) -was on Morphine RN TRAUMA (06/07-06/11), now stopped with improvement in swelling [...] chemotherapy. SIDNEY [facility] [address]K [address] [facility] Mailcode: Kpv14 [place] [address] Yugn Rodas M D - 06/10/2015 11:20 AM [...] Can move neck fully now. Still on RN TRAUMA bu t willing to consider switch back [...] Donor search is activated. Yung Zhao MD [place] [id number] [facility] Mailcode: [address] [address] Kary Francis PA - 06/09/2015 [...] (warm compresses, sialogogues, pain control, hydration) -Morphine RN TRAUMA as of 06/07 -CINV: Improved overall. Continue [...] management. [facility] 03/13[facility] (the night of his wedding) at [...] over his left ankle, seen in the [facility]' emergency room on 04/19/15. CT angiogram [...] (warm compresses, sialogogues, pain control, hydration) -Morphine RN TRAUMA started 06/07 Cardiovascular: Prechemotherapy Echo results on [...] chemotherapy. [facility] [address] [place] [address] Mailcode: Uhn73a [facility] [phone], MD - 06/09/2015 5:27 [...] Donor search is activated. Yung Zhao MD [facility] [address] [facility] Mailcode: Kpv14 [place] [address] Sterling Espinosa MD - 1 08/10/2014 8:19 [...] R2, Department of Otolaryngology/Head & Neck Surgery [facility] Pager [phone] Associated attestation - Carmen Mora MD - [...] syndrome- convert oral pain meds to IV RN TRAUMA Other: US of LUE--> basilic superficial vein thrombosis Treat with heat and elevation prn Yung Zhao MD [place] [id number] [facility] Mailcode: Kpv14 [place] [address] ary Tracey PA - 06/08/2015 [...] (warm compresses, sialogogues, pain control, hydration) -Morphine RN TRAUMA started 06/07 -CINV: Improved overall. Continue Zofran [...] management. [facility] 03/[facility] (the night of his wedding) at [...] over his left ankle, seen in the [facility]'s emergency room on 04/19/15. CT angiogram [...] (warm compresses, sialogogues, pain control, hydration) -Morphine RN TRAUMA started 06/07 Cardiovascular: Prechemotherapy Echo results on [...] Moya-C [facility] [address] [facility] Mailcode: Uhn[address] [place] [address] Inga Silva MD - 06/08/2015 4:24 PM [...] aureus (MRS A). Patient reports left face puffer tender, but perhaps less tense & better [...] mg, intravenous, Q4H PRN, Yari Garcia MD [id number] (SPECIAL MOUTHWASH) suspension (compound) 5-10 mL, 5-10 [...] PRN, Blair Deng MD morphine 5 mg/mL RN TRAUMA infusion (ADULT), , intravenous, CONTINUOUS, Em Saunders [...] Will follow with you. Lainey Arenas MD [facility] [address] [facility] Mailcode: Kpv[address] [place] [address] Em Vinson P A-Daron - 06/07/2015 1:36 PM PST Daily NPP Note - Chemotherapy Admit [facility] Attending: Yung Zhao MD PCP: Pending Pcp ADDITION Date of Admission: 05/26/2015 Hematologic Malignancy: AML Reason for admission: Work-up and Induction Chemotherapy 24 Hour Events/Current Daily Plan: -AML: confirmed by [facility] PB, reviewed outside path c/w Acute Myelomonocytic [...] this time -ENT consult, awaiting recommendations -Morphine RN TRAUMA as of 06/07 for pain -Chlorhexidine and [...] management. [facility] (the night of his wedding) at [...] over his left ankle, seen in the [facility] emergency room on 04/19/15. CT angiogram negative [...] done at OSH 05/19/15, slides reviewed by [facility] and c/w Acute Myelomonocytic Leukemia in a [...] (06/06- ) -ENT consult, awaiting recommendations -Morphine RN TRAUMA as of 06/07 for pain -Chlorhexidine and [...] admission for induction chemotherapy. Em Saunders PA-C [place] [id number] [place] [address] Mailcode: Kpv14 [place] [address] Yung Rodas M D - 06/07/2015 12:50 [...] syndrome- convert oral pain meds to IV RN TRAUMA Other: US of LUE--> basilic superficial vein thrombosis Treat with heat and elevation Yung Zhao MD [facility] [address]U [address] [facility] Mailcode: Kpv14 [place], [place] [id number] Yung Rodas MD - 06/06/2015 2:03 PM [...] analgesia and muscle relaxants Yung Zhao MD [facility] [address]K [address] [facility] Mailcode: Kpv14 [place] [address] Yung Rodas MD - 06/05/2015 3:37 PM [...] with heat and elevation Yung Zhao MD [facility] [address] [facility] Mailcode: Kpv[address] [place] [address] Lamin Espinal MD,PhD - 06/04/2015 2:50 PM [...] Hour Events/Current Daily Plan: -AML: confirmed by [facility] PB, reviewed outside path c/w Acute Myelomonocytic [...] scop patch over night. Right buccal mucosa puffer tender, but not worse. Objective: Last Vitals: [...] management. Had been in usual state of [facility] [place]13[place] (the night of his wedding) [...] over his left ankle, seen in the [facility]'s emergency room on 04/19/15. CT angiogram [...] admission for induction chemotherapy. Em Saunders PA-C [address] [facility] Mailcode: Kpv14 [place] [address] Lamin Espinal MD,Ph D - 06/02/2015 5:44 [...] Lamin Funes MD PhD Migel Robyn M, DELIVERY ROOM SUPERVISOR - 06/02/2015 10:38 AM PST Daily NPP Note - Chemotherapy Admit [facility] Attending: Lamin Funes MD, PhD PCP: Pending Pcp ADDITION Date of Admission: 05/26/2015 Hematologic Malignancy: AML Reason for admission: Work-up and Induction Chemotherapy 24 Hour Events/Current Daily Plan: -AML: confirmed by [facility] PB, reviewed outside path c/w Acute Myelomonocytic [...] management. [facility] 03[facility] (the night of his wedding) at [...] over his left ankle, seen in the [facility]'s emergency room on 04/19/15. CT angiogram [...] admission for induction chemotherapy. REBECCA Pérez NP [facility] [address]K [address] [facility] Mailcode: Kpv[address] [place] [address] MYChenLamin MD, PhD - 06/01/2015 3:58 PM [...] Lamin Funes MD PhD echandlerRobyn aguayo David, DELIVERY ROOM SUPERVISOR - 06/01/2015 12:18 PM PST Daily NPP Note - Chemotherapy Admit [facility] Attending: Lamin Funes MD, PhD PCP: Pending Pcp ADDITION Date of Admission: 05/26/2015 Hematologic Malignancy: AML Reason for admission: Work-up and Induction Chemotherapy 24 Hour Events/Current Daily Plan: -AML: confirmed by PB sent 05/27. Cytogenetics, genetrails PENDING. BM Bx 05/19 from OSH, r eviewed by [facility] and c/w Acute Myelomonocytic Leukemia in a [...] management. [facility] 03[facility] (the night of his wedding) at [...] over his left ankle, seen in the [facility] emergency room on 04/19/15. CT angiogram [...] admission for induction chemotherapy. REBECCA Pérez NP [facility] [address]K [address] [facility] Mailcode: Kpv14 [place] [address] Lamin Espinal MD, PhD - 05/31/2015 6:20 [...] from OSH PENDING heme path review at [facility]. Currently day 5 of 3+7 induction. -Leukocytosis/Anemia/Thrombocytopenia: [...] management. [facility] 03[facility] (the night of his wedding) at [...] over his left ankle, seen in the [facility] emergency room on 04/19/15. CT angiogram [...] 05/19/15. Awaiting heme path review here at [facility] PENDING -Results: 86% of blast equivalents, comprised [...] admission for induction chemotherapy. REBECCA Pérez NP [facility] [address]K [address] [facility] Mailcode: Kpv14 [place] [address] amin Funes MD, PhD - 05/30/2015 5:26 [...] from OSH PENDING heme path review at [facility]. Currently day 4 of 3+7 induction. -Leukocytosis/Anemia/Thrombocytopenia: [...] management. [facility] 03/[facility] (the night of his wedding) at [...] over his left ankle, seen in the [facility] emergency room on 04/19/15. CT angiogram [...] 05/19/15. Awaiting heme path review here at [facility] PENDING -Results: 86% of blast equivalents, comprised [...] 3-4 admission for induction chemotherapy. ORLY Arteaga [facility] [address]K [address] [facility] Mailcode: v14 [place], [place] [id number] Lamin Espinal MD,Ph D - 05/29/2015 4:47 [...] from OSH PENDING heme path review at [facility]. Started induction 3+7, Day 3. -Leukocytosis, anemia [...] management. Had been in usual state of [facility] until 03/13/15 (the night of [...] over his left ankle, seen in the [facility] emergency room on April 19, CT [...] 05/19/15. Awaiting heme path review here at [facility] PENDING -Results:86% of blast equivalents, comprised of myeloblasts, monoblasts and promonocytes. Concurrent flow cytometry detected 23% myeloid blasts and 60% immature monocytic cells supp orting this diagnosis. -Cytogenetics: Normal male karyotype (awaiting peripheral cytogenetics sent 05/27 at [facility] ) -Genetrails: CEBPA , NPM1, FLT3 NEGATIVE (awaiting peripheral genetrails sent 05/27 at [facility] [facility]) -Peripheral blood flow (05/27) confirmed diagnosis of AML at [facility] with 47% blasts -Plan to send telomere [...] asymptomatic therefore dc'd this. Pulmonary: #SOB (noted JEWELRY SORTER) -occasional with exertion, SaO2 WNL #Current smoker [...] admission for induction chemotherapy. RONALD Merrill ANP [facility] 14K [address] [facility] Mailcode: Kp4 [place], [place] [id number] Oscar, Yari Jones MD - 05/28/2015 11:07 [...] orders for today. Yari Garcia MD, M.S. [facility] for Hematologic Malignancies Attending physician s total time is 35 minutes, >50% spent counseling and coordination of care. Today, as part of my counseling and coordination of care, I reviewed data, reviewed today's plan, and discussed anticipated side effects of chemotherapy. [facility] DEPARTMENT: [id number] - [facility] FACULT[facility] MPV Place of Service: [address] - Inpatient Date of Service: 05/28/2015 Modifiers: None Suggested CPT: 65235 - Subsequent, Detailed/High complex 35 min ######################################################### [...] from OSH PENDING heme path review at [facility]. Started induction 3+7, Day 2 -Leukocytosis, anemia [...] over his left ankle, seen in the [facility]' emergency room on April 19, CT [...] 05/19/15. Awaiting heme path review here at [facility] PENDING -Results:86% of blast equivalents, comprised of myeloblasts, monoblasts and promonocytes. Concurrent flow cytometry detected 23% myeloid blasts and 60% immature monocytic cells supp orting this diagnosis. -Cytogenetics: Normal male karyotype (awaiting peripheral cytogenetics sent 05/27 at [facility] ) -Genetrails: CEBPA , NPM1, FLT3 NEGATIVE (awaiting peripheral genetrails sent 05/27 at [facility]) -Peripheral blood flow (05/27) confirmed diagnosis of AML at [facility] with 47% blasts Treatment: -Chemotherapy regimen: standard [...] asymptomatic therefore dc'd this. Pulmonary: #SOB (noted JEWELRY SORTER) -occasional with exertion, SaO2 WNL #Current smoker [...] admission for induction chemotherapy. RONALD Merrill ANP [facility] 14P [address] [facility] Mailcode: [facility] [place], [place] [id number] James Barrow RPh - 05/27/2015 10:54 PM [...] chart. The subject was instructed, by the Direct Support Worker on how to complete study materials via disc ussion of the actual form the subject will be using. Objective: Medications and history of nausea/vomiting were reviewed for eligibility for this study and the subject meets study criteria. Consenting was completed prior to any study activity taking place Plan: Direct Support Worker will follow up with patient daily and [...] management. Had been in usual state of [facility] until 03/13/15 (the night of [...] over his left ankle, seen in the [facility]'s emergency room on April 19, CT [...] karyotype (awaiting peripheral cytogenetics sent 05/27 at [facility] ) -Genetrails: CEBPA , NPM1, FLT3 NEGATIVE (awaiting peripheral genetrails sent 05/27 at [facility]) -Peripheral blood flow (05/27) confirmed diagnosis of AML, with 47% blasts Treatment: -Chemotherapy regimen: 3+7 -Chemo Day: 1 Patient is a candidate for transplant based on Dx and prognostic feature. Request [facility] approval for typing. HLA typing sent 05/27. [...] trop negative at OSH. #Anterior chest pain JEWELRY SORTER -Oxycodone IR PRN Pulmonary: 05/27 CXR with clear lungs #SOB (noted JEWELRY SORTER) -occasional with exertion, SaO2 WNL #Current smoker [...] admission for induction chemotherapy. REBECCA Pérez NP [facility] 14K [address] [facility] Mailcode: Kpv14 [place] [address] documented in thi s encounter Plan of [...] Rd | | | | | | [place], [place] | | | | | | [address] | | | | | | [phone] | | | | | | | [...] CR, GLU, CA) | | PST | ([facility]) | results section. | + +--------+ + + + | CBC ONLY | Routin | 06/13/2015 | Acute myeloid | Results for this | | | e | 1:19 PM | leukemia (AML), M4 | procedure are in the | | | | PST | ([facility]) | results section. | + +--------+ + + + | COAGULOPATHY PANEL | Routin | 06/13/2015 | Acute myeloid | Results for this | | (INR,APTT,FIBRINOGEN | e | 1:19 PM | leukemia (AML), M4 | procedure are in the | | ) | | PST | ([facility]) | results section. | + +--------+ + + + | PHOSPHORUS, PLASMA | Routin | 06/13/2015 | Acute myeloid | Results for this | | | e | 1:19 PM | leukemia (AML), M4 | procedure are in the | | | | PST | ([facility]) | results section. | + +--------+ + + + | URIC ACID, PLASMA | Routin | 06/13/2015 | Acute myeloid | Results for this | | | e | 1:19 PM | leukemia (AML), M4 | procedure are in the | | | | PST | ([facility]) | results [...] | | | PST | ([facility]) | results [...] | | | PST | ([facility]) | results section. | + +--------+ + + + | BASIC METABOLIC SET | Routin | 06/12/2015 | Acute myeloid | Results for this | | (NA, K, CL, TCO2, | e | 11:13 AM | leukemia (AML), M4 | procedure are in the | | BUN, CR, GLU, CA) | | PST | ([facility]) | results section. | + +--------+ + + + | CBC ONLY | Routin | 06/12/2015 | Acute myeloid | Results for this | | | e | 11:13 AM | leukemia (AML), M4 | procedure are in the | | | | PST | ([facility]) | results section. | + +--------+ + + + | COAGULOPATHY PANEL | Routin | 06/12/2015 | Acute myeloid | Results for this | | (INR,APTT,FIBRINOGEN | e | 11:13 AM | leukemia (AML), M4 | procedure are in the | | ) | | PST | ([facility]) | results section. | + +--------+ + + + | PHOSPHORUS, PLASMA | Routin | 06/12/2015 | Acute myeloid | Results for this | | | e | 11:13 AM | leukemia (AML), M4 | procedure are in the | | | | PST | ([facility]) | results section. | + +--------+ + + + | URIC ACID, PLASMA | Routin | 06/12/2015 | Acute myeloid | Results for this | | | e | 11:13 AM | leukemia (AML), M4 | procedure are in the | | | | PST | ([facility]) | results section. | + +--------+ + + + | D-DIMER, (PE OR DIC) | Routin | 06/12/2015 | Acute myeloid | Results for this | | | e | 10:55 AM | leukemia (AML), M4 | procedure are in the | | | | PST | ([facility]) | results [...] AT,GLUC,CA,AST,ALT,B | | | | | | YNU TOTAL,ALK | | | | | | [...] | | | PST | ([facility]) | | + +--------+ + [...] [facility] | [address] | [place] [address] | | | SERVICES, CORE | DEBI [...] + + | [facility] | [address] | [place] [address] | | | DIAGNOSTIC | [address] [...] [facility] BO[facility] | [address] | [place] [address] | | | SERVICES, SPECIAL | PARK [...] [facility] | [address] | [place] [address] | | | SERVICES, SPECIAL | DEBI [...] + + + + | PRODUCT | [id number] | | [facility] | | | UNIT [...] + + + + | EXPIRATION | [id number] | | [facility] | | | DATE [...] + + + + | BLOOD | [id number] | | [facility] | | | PRODUCT [...] DEPARTMENT OF | [address] | [place] [address] | | | PATHOLOGY | [address] [...] | | | | | (SO) / [id number] | | | | | | (5p15.2) (SG)Cells | | | | | | Scored: 200 | | | | | | Probe(s): Blanton | | | | | | 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 | | | | | | Rendering [...] + + + + | [facility] | [address] | [place] [address] | | | DIAGNOSTIC | [address] [...] and | | | | | | [id number], | | | | | | 05/27/2015). He had | | | | | | normal | | | | | | cytogenetics/FISH. 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 [...] | | | | | and dim [id number]-llnwiduh- | | | | | | Promonocyte [...] dim | | | | | | HE535-dintsjwo. | | | | | | Anabnormal [...] and | | | | | | PRQ-RY-kstbihnk. | | | | | | Maturelymphocytes [...] a | | | | | | CD4:KW2vofwd of about | | | | | [...] CD10 | | | | | | [id number] CD19 CD20 CD14 | | | | | | CD15 CD16 CD33 [id number] | | | | | | CD56 [...] + + | [facility] | [address] | [place] [address] | | | PATHOLOGY | [address] [...] [facility] | [address] | [place] [address] | | | SERVICES, CORE | PARK [...] [facility] | [address] | [place] [address] | | | KOLE, CORE | DEBI [...] [facility] | [address] | [place] [address] | | | SERVICES, CORE | PARK [...] FOR BOYS | [address] | [place] [address] | | | SERVICES, CORE | DEBI [...] [facility] | [address] | [place] [address] | | | SERVICES, CORE | PARK [...] [facility] | [address] | [place] [address] | | | SERVICES, CORE | DEBI [...] the MDRD equation recommended by the | [facility] | | National Kidney Disease [...] [facility] | [address] | [place] [address] | | | SERVICES, CORE | DEBI [...] DEPT OF | [address] | [place], [place] | | | CARDIOLOGY | [address] | [address] | | + + + + + [...] [facility] | [address] | [place] [address] | | | SERVICES, CORE | PARK [...] [facility] | [address] | [place] [address] | | | KOLE, CORE | DEBI [...] [facility] | [address] | [place] [address] | | | SERVICES, CORE | PARK [...] [facility] | [address] [facility] | [place] [address] | | | SERVICES, CORE | PARK [...] [facility] | [address] | [place] [address] | | | SERVICES, CORE | PARK [...] [facility] | [address] | [place] [address] | | | SERVICES, CORE | PARK [...] [facility] | [address] [facility] | [place] [address] | | | SERVICES, CORE | DEBI [...] [facility] | [address] | [place] [address] | | | SERVICES, CORE | PARK [...] FOR BO[facility] | [address] | [place] [address] | | | SERVICES, CORE | DEBI [...] [facility] | [address] | [place] [address] | | | SERVICES, CORE | PARK [...] [facility] | [address] | [place] [address] | | | INDRA SHARIF | DEBI [...] FOR BO[facility] | [address] | [place] [address] | | | SERVICES, INDRA | DEBI [...] [facility] | [address] | [place] [address] | | | SERVICES, CORE | DEBI [...] [facility] | [address] | [place] [address] | | | SERVICES, CORE | DEBI [...] [facility] | [address] | [place] [address] | | | SERVICES, CORE | PARK [...] [facility] | [address] | [place] [address] | | | SERVICES, CORE | PARK [...] FOR BO[facility] | [address] | [place] [address] | | | SERVICES, CORE | DEBI [...] [facility] | [address] | [place] [address] | | | SERVICES, CORE | PARK [...] [facility] | [address] [facility] | [place] [address] | | | SERVICES, INDRA | DEBI [...] + + + + | PRODUCT | [id number] | | [facility] | | | UNIT [...] + + + + | EXPIRATION | [id number] | | [facility] | | | DATE [...] + + + + | BLOOD | [id number] | | [facility] | | | PRODUCT [...] + + | [facility] | [address] | [place] [address] | | | PATHOLOGY | [address] [...] [facility] | [address] | [place] [address] | | | INDRA SHARIF | DEBI [...] [facility] | [address] | [place] [address] | | | SERVICES, CORE | PARK [...] [facility] | [address] [facility] | [place] [address] | | | SERVICES, CORE | PARK [...] [facility] | [address] | [place] [address] | | | SERVICES, CORE | DEBI [...] + + + + | PRODUCT | [id number] | | [facility] | | | UNIT [...] + + + + | EXPIRATION | [id number] | | [facility] | | | DATE [...] + + + + | BLOOD | [id number] | | [facility] | | | PRODUCT [...] + + | [facility] DEPARTMENT | [address] | [place] [address] | | | PATHOLOGY | [address] [...] [facility] | [address] | [place] [address] | | | SERVICES, | [address] [...] + + + + | PRODUCT | [id number] | | [facility] | | | UNIT [...] + + + + | EXPIRATION | [id number] | | [facility] | | | DATE [...] + + + + | BLOOD | [id number] | | [facility] | | | PRODUCT [...] + + | [facility] | [address] | [place] [address] | | | PATHOLOGY | [address] [...] + + + + | PRODUCT | [id number] | | [facility] | | | UNIT [...] + + + + | EXPIRATION | [id number] | | [facility] | | | DATE [...] + + + + | BLOOD | [id number] | | [facility] | | | PRODUCT [...] + + | [facility] | [address] | [place] [address] | | | PATHOLOGY | [address] [...] [facility] | [address] | [place] [address] | | | SERVICES, | [address] [...] [facility] | [address] | [place] [address] | | | SERVICES, | [address] [...] [facility] | [address] | [place] [address] | | | SERVICES, CORE | PARK [...] [facility] BO[facility] | [address] | [place] [address] | | | SERVICES, CORE | DEBI [...] [facility] | [address] | [place] [address] | | | SERVICES, CORE | PARK [...] [facility] | [address] [facility] | [place] [address] | | | KOLE, INDRA | [address] | | | + + + + + CULTURE, URINE [facility] (07/02/2015 9:05 AM PST) + + + [...] [facility] | [address] | [place] [address] | | | SERVICES, CORE | PARK [...] [facility] | [address] | [place] [address] | | | SERVICES, CORE | PARK [...] | + + + + + | [facility] | [address] | [place] [address] | | | SERVICES, INDAR | [address] | | | + [...] [facility] | [address] | [place] [address] | | | SERVICES, CORE | PARK [...] | [address] [facility] | [place] [address] | | | SERVICES, CORE | DEBI [...] | [address] [address] [address] | [place] [address] | | | SERVICES, CORE | PARK [...] [facility] | [address] | [place] [address] | | | SERVICES, CORE | DEBI [...] [facility] | [address] | [place] [address] | | | SERVICES, CORE | PARK [...] FOR BO[facility] | [address] | [place] [address] | | | SERVICES, CORE | DEBI [...] [facility] | [address] | [place] [address] | | | SERVICES, CORE | DEBI [...] [facility] | [address] | [place] [address] | | | SERVICES, CORE | [address] | | | + + + + + MAGNESIUM, PLASMA (07/01/2015 11:57 PM PST) + +-------+ + + + | Component | Value | Ref Range | Performed | Pathologist | | | | | At | Signature | + +-------+ + + + | MAGNESIUM,P | 1.8 | 1.8 - 2.5 mg/dL | [facility] | | | LASMA | | | [...] [facility] | [address] | [place] [address] | | | SERVICES, CORE | DEBI [...] | [address] | [place] [address] | | | SERVICES, CORE | PARK [...] [facility] | [address] | [place] [address] | | | SERVICES, CORE | DEBI [...] [facility] | [address] | [place] [address] | | | INDRA SHARIF | DEBI [...] [facility] | [address] | [place] [address] | | | SERVICES, INDRA | PARK [...] [facility] | [address] | [place] [address] | | | SERVICES, CORE | DEBI [...] [facility] | [address] | [place] [address] | | | SERVICES, CORE | PARK [...] [facility] | [address] [facility] | [place] [address] | | | INDRA SHARIF | DEBI [...] + + + + | PRODUCT | [id number] | | [facility] | | | UNIT [...] + + + + | EXPIRATION | [id number] | | [facility] | | | DATE [...] + + + + | BLOOD | [id number] | | [facility] | | | PRODUCT [...] + + | [facility] DEPARTMENT OF | [address] | [place] [address] | | | PATHOLOGY | [address] [...] + + + + | PRODUCT | [id number] | | [facility] | | | UNIT [...] + + + + | EXPIRATION | [id number] | | [facility] | | | DATE [...] + + + + | BLOOD | [id number] | | [facility] | | | PRODUCT [...] | + + + + + | [facility] | [address] | [place] [address] | | | PATHOLOGY | [address] [...] [facility] | [address] | [place] [address] | | | SERVICES, CORE | PARK [...] FOR BO[facility] | [address] | [place] [address] | | | SERVICES, INDRA | DEBI [...] | + + + + + | [facility] | [address] | [place] [address] | | | SERVICES, CORE | PARK [...] the MDRD equation recommended by the | [facility] | | National Kidney Disease [...] [facility] | [address] | [place] [address] | | | INDRA SHARIF | DEBI [...] [facility] | [address] | [place] [address] | | | INDRA SHARIF | DEBI [...] [facility] | [address] | [place] [address] | | | SERVICES, CORE | [address] | | | + + + + + MAGNESIUM, PLASMA (06/28/2015 11:15 PM PST) + +-------+ + + + | Component | Value | Ref Range | Performed | Pathologist | | | | | At | Signature | + +-------+ + + + | MAGNESIUM,P | 2.1 | 1.8 - 2.5 mg/dL | [facility] | | | LASMA | | | [...] [facility] | [address] | [place] [address] | | | SERVICES, CORE | P[address] [...] [facility] | [address] | [place] [address] | | | SERVICES, CORE [...] [facility] BO[facility] | [address] | [place] [address] | | | SERVICES, CORE | DEBI [...] | | | | | determined by [facility] | | | | | | Laboratories. See | | | | | | Compliance Statement B: | | | | | | 3225 films.kSARIA/CSPerformed | | | | | | by [employer],[address] | | | | | | [place], [place] | | | | | | [address] | | | | | | [phone].3225 films. | | | | | | [facility], [address], | | | [...] [facility] | [address] | [place], [place] | | | [facility] | | [address] | | + + + + + [...] + + + + | PRODUCT | [id number] | | [facility] | | | UNIT [...] + + + + | EXPIRATION | [id number] | | [facility] | | | DATE [...] + + + + | BLOOD | [id number] | | [facility] | | | PRODUCT [...] + + | [facility] | [address] | [place] [address] | | | PATHOLOGY | [address] [...] [facility] | [address] | [place] [address] | | | SERVICES, CORE | PARK [...] [facility] | [address] | [place] [address] | | | SERVICES, INDRA | DEBI [...] [facility] | [address] | [place] [address] | | | SERVICES, CORE | PARK [...] [facility] | [address] [facility] | [place] [address] | | | SERVICES, CORE | [address] [...] the MDRD equation recommended by the | [facility] | | National Kidney Disease Education Program. [...] [facility] | [address] | [place] [address] | | | SERVICES, CORE | DEBI [...] + + + + | PRODUCT | [id number] | | [facility] | | | UNIT [...] + + + + | EXPIRATION | [id number] | | [facility] | | | DATE [...] + + + + | BLOOD | [id number] | | [facility] | | | PRODUCT [...] + + | [facility] DEPARTMENT OF | [address] | [place] [address] | | | PATHOLOGY | [address] [...] + + + + | PRODUCT | [id number] | | [facility] | | | UNIT [...] + + + + | EXPIRATION | [id number] | | [facility] | | | DATE [...] + + + + | BLOOD | [id number] | | [facility] | | | PRODUCT [...] [facility] | [address] | [place] [address] | | | PATHOLOGY | [address] [...] [facility] | [address] | [place] [address] | | | SERVICES, | [address] [...] [facility] | [address] | [place] [address] | | | SERVICES, | [address] [...] [facility] | [address] | [place] [address] | | | INDRA SHARIF | DEBI [...] [facility] | [address] | [place] [address] | | | SERVICES, CORE | [address] [...] [facility] | [address] [facility] | [place] [address] | | | SERVICES, INDRA | DEBI [...] [facility] | [address] | [place] [address] | | | SERVICES, CORE | [address] [...] [facility] | [address] | [place] [address] | | | SERVICES, CORE | [address] [...] [facility] | [address] | [place] [address] | | | INDRA SHARIF | [address] [...] LABORATORY | [address] | [place] [address] | | | SERVICES, CORE | DEBI [...] the MDRD equation recommended by the | [facility] | | National Kidney Disease Education Program. [...] [facility] | [address] | [place] [address] | | | INDRA SHARIF | DEBI [...] [facility] | [address] | [place] [address] | | | SERVICES, CORE | [address] [...] [facility] | [address] | [place] [address] | | | SERVICES, CORE | DEBI [...] [facility] | [address] | [place] [address] | | | SERVICES, CORE | PARK [...] [facility] | [address] | [place] [address] | | | SERVICES, CORE | DEBI [...] [facility] | [address] | [place] [address] | | | SERVICES, CORE | PARK [...] the MDRD equation recommended by the | [facility] | | National Kidney Disease Education Program. [...] [facility] | [address] | [place] [address] | | | SERVICES, CORE | [address] [...] + + + | [facility] - | [address] | [place] [address] | | | IMMUNOGENETICS/TRANS | [address] [...] [facility] - | [address], | [place] [address] | | | IMMUNOGENETICS/TRANS | [address] [...] + + | [facility] - | [address] | [place] [address] | | | IMMUNOGENETICS/TRANS | [address] [...] [facility] - | [address] | [place] [address] | | | IMMUNOGENETICS/TRANS | [address] [...] - | [address] | [place], [place] | | | IMMUNOGENETICS/TRANS | [address] [...] - | [address] | [place], [place] | | | IMMUNOGENETICS/TRANS | [address] [...] [facility] - | [address] | [place] [address] | | | IMMUNOGENETICS/TRANS | [address] [...] [facility] | [address] | [place] [address] | | | SERVICES, CORE | DEBI [...] + + + + | PRODUCT | [id number] | | [facility] | | | UNIT [...] + + + + | EXPIRATION | [id number] | | [facility] | | | DATE [...] + + + + | BLOOD | [id number] | | [facility] | | | PRODUCT [...] + + | [facility] DEPARTMENT OF | [address] | [place] [address] | | | PATHOLOGY | [address] [...] [facility] | [address] | [place] [address] | | | SERVICES, | [address] [...] | + + + + + | [facility] | [address] | [place] [address] | | | SERVICES, | [address] [...] [facility] | [address] | [place] [address] | | | KOLE, INDRA | DEBI [...] [facility] | [address] | [place] [address] | | | SERVICES, CORE | [address] [...] | + + + + + | [facility] | [address] | [place] [address] | | | SERVICES, CORE | DEBI [...] [facility] | [address] | [place] [address] | | | KOLE, INDRA | DEBI [...] + + | [facility] [employer] [facility] | [address] | [place] [address] | | | SERVICES, CORE | DEBI [...] + + + + | PRODUCT | [id number] | | [facility] | | | UNIT [...] + + + + | EXPIRATION | [id number] | | [facility] | | | DATE [...] + + + + | BLOOD | [id number] | | [facility] | | | PRODUCT [...] + + | [facility] | [address] | [place] [address] | | | PATHOLOGY | [address] [...] + + + + | PRODUCT | [id number] | | [facility] | | | UNIT [...] + + + + | EXPIRATION | [id number] | | [facility] | | | DATE [...] + + + + | BLOOD | [id number] | | [facility] | | | PRODUCT [...] + + | [facility] | [address] | [place] [address] | | | PATHOLOGY | [address] [...] [facility] | [address] | [place] [address] | | | KOLE, INDRA | DEBI [...] [facility] | [address] | [place] [address] | | | SERVICES, CORE | [address] | | | + + + + + [facility], PLASMA (06/22/2015 11:59 PM PST) + +-------+ + + + | Component | Value | Ref Range | Performed | Pathologist | | | | | At | Signature | + +-------+ + + + | MAGNESIUM,P | 2.1 | 1.8 - 2.5 mg/dL | [facility] | | | LASMA | [...] [facility] | [address] | [place] [address] | | | SERVICES, [facility] | [address] | | | + [...] the MDRD equation recommended by the | [facility] | | National Kidney Disease [...] [facility] | [address] | [place] [address] | | | SERVICES, CORE | PARK [...] [facility] | [address] | [place] [address] | | | SERVICES, CORE | PARK [...] [facility] | [address] | [place] [address] | | | SERVICES, CORE | PARK [...] [facility] | [address] | [place] [address] | | | SERVICES, CORE | DEBI [...] [facility] | [address] | [place] [address] | | | SERVICES, CORE | PARK [...] [facility] | [address] | [place] [address] | | | SERVICES, CORE | DEBI [...] [facility] | [address] | [place] [address] | | | SERVICES, CORE | DEBI [...] [facility] | [address] | [place] [address] | | | SERVICES, CORE | PARK [...] [facility] | [address] | [place] [address] | | | SERVICES, CORE | DEBI [...] [facility] | [address] | [place] [address] | | | SERVICES, CORE | PARK [...] + + + + | PRODUCT | [id number] | | [facility] | | | UNIT [...] + + + + | EXPIRATION | [id number] | | [facility] | | | DATE [...] + + + + | BLOOD | [id number] | | [facility] | | | PRODUCT [...] + + | [facility] DEPARTMENT OF | [address] | [place] [address] | | | PATHOLOGY | [address] [...] + + + + | PRODUCT | [id number] | | [facility] | | | UNIT [...] + + + + | EXPIRATION | [id number] | | [facility] | | | DATE [...] + + + + | BLOOD | [id number] | | [facility] | | | PRODUCT [...] + + | [facility] DEPARTMENT | [address] | [place] [address] | | | PATHOLOGY | [address] [...] [facility] | [address] | [place] [address] | | | SERVICES, CORE | DEBI [...] [facility] | [address] | [place] [address] | | | SERVICES, CORE | PARK [...] [facility] | [address] | [place] [address] | | | SERVICES, CORE | PARK [...] the MDRD equation recommended by the | [facility] | | National Kidney Disease [...] [facility] | [address] | [place] [address] | | | SERVICES, CORE | PARK [...] [facility] | [address] | [place] [address] | | | SERVICES, CORE | PARK [...] [facility] | [address] | [place] [address] | | | SERVICES, CORE | PARK [...] | + + + + + | [facility] | [address] | [place] [address] | | | SERVICES, CORE | DEBI [...] [facility] | [address] | [place] [address] | | | INDRA SHARIF | DEBI [...] [facility] | [address] | [place] [address] | | | SERVICES, INDRA | DEBI [...] + + + + | PRODUCT | [id number] | | [facility] | | | UNIT [...] + + + + | EXPIRATION | [id number] | | [facility] | | | DATE [...] + + + + | BLOOD | [id number] | | [facility] | | | PRODUCT [...] + + | [facility] | [address] | [place] [address] | | | PATHOLOGY | [address] [...] [facility] | [address] | [place] [address] | | | SERVICES, | [address] [...] + + | [facility] [facility] | [address] | [place] [address] | | | SERVICES, | [address] [...] [facility] | [address] | [place] [address] | | | SERVICES, INDRA | DEBI [...] [facility] | [address] | [place] [address] | | | SERVICES, CORE | PARK [...] [facility] | [address] | [place] [address] | | | SERVICES, CORE | PARK [...] [facility] | [address] | [place] [address] | | | KOLE, INDRA | PARK [...] [facility] | [address] | [place] [address] | | | SERVICES, CORE | DEBI [...] [facility] | [address] | [place] [address] | | | SERVICES, CORE | PARK [...] + + + + | PRODUCT | [id number] | | [facility] | | | UNIT [...] + + + + | EXPIRATION | [id number] | | [facility] | | | DATE [...] + + + + | BLOOD | [id number] | | [facility] | | | PRODUCT [...] + + | [facility] DEPARTMENT OF | [address] | [place] [address] | | | PATHOLOGY | [address] [...] [facility] | [address] | [place] [address] | | | SERVICES, CORE | PARK [...] | + + + + + | [facility] | [address] | [place] [address] | | | SERVICES, CORE | DEBI [...] [facility] | [address] | [place] [address] | | | SERVICES, CORE | DEBI [...] [facility] | [address] | [place] [address] | | | SERVICES, CORE | PARK [...] [facility] | [address] | [place] [address] | | | SERVICES, CORE | PARK [...] [facility] | [address] | [place] [address] | | | SERVICES, CORE | PARK [...] [facility] | [address] | [place] [address] | | | KOLE, INDRA | DEBI [...] [facility] | [address] | [place] [address] | | | SERVICES, CORE | [address] | | | + + + + + MAGNESIUM, PLASMA (06/15/2015 11:00 PM PST) + +-------+ + + + | Component | Value | Ref Range | Performed | Pathologist | | | | | At | Signature | + +-------+ + + + | MAGNESIUM,P | 2.2 | 1.8 - 2.5 mg/dL | [facility] | | | LASMA | [...] [facility] | [address] | [place] [address] | | | SERVICES, [facility] | [address] | | | + [...] [facility] | [address] | [place] [address] | | | SERVICES, CORE | [address] | | | + + + + + 12 LEAD ECG (06/15/2015 2:20 PM PST) + + + + + + | Component | Value | Ref Range | Performed | Pathologist | | | | | At | Signature | + + + + + + | VENTRICULAR | 52 | bpm | [facility] DEPT | | | RATE | | [...] DEPT OF | [address] | [place], [place] | | | CARDIOLOGY | [address] | [id number] | | + + + + + [...] [facility] | [address] | [place] [address] | | | SERVICES, CORE | PARK [...] [facility] | [address] | [place] [address] | | | SERVICES, CORE | [address] | | | + + + + + MAGNESIUM, PLASMA (06/14/2015 11:06 PM PST) + +-------+ + + + | Component | Value | Ref Range | Performed | Pathologist | | | | | At | Signature | + +-------+ + + + | MAGNESIUM,P | 2.3 | 1.8 - 2.5 mg/dL | [facility] | | | LASMA | [...] [facility] | [address] | [place] [address] | | | SERVICES, CORE | PARK [...] [facility] | [address] | [place] [address] | | | SERVICES, INDRA | DEBI [...] [facility] | [address] | [place] [address] | | | SERVICES, CORE | PARK [...] + + + + | PRODUCT | [id number] | | [facility] | | | UNIT [...] + + + + | EXPIRATION | [id number] | | [facility] | | | DATE [...] + + + + | BLOOD | [id number] | | [facility] | | | PRODUCT [...] DEPARTMENT OF | [address] | [place] [address] | | | PATHOLOGY | [address] [...] + + + + | PRODUCT | [id number] | | [facility] | | | UNIT [...] + + + + | EXPIRATION | [id number] | | [facility] | | | DATE [...] + + + + | BLOOD | [id number] | | [facility] | | | PRODUCT [...] | [facility] DEPARTMENT OF | [address] | [place] [address] | | | PATHOLOGY | [address] [...] [facility] | [address] | [place] [address] | | | SERVICES, CORE | PARK [...] [facility] | [address] | [place] [address] | | | KOLE, INDRA | DEBI [...] [facility] | [address] | [place] [address] | | | SERVICES, CORE | DEBI [...] | [address] | [place] [address] | | | SERVICES, [facility] | [address] | | | + [...] [facility] | [address] | [place] [address] | | | SERVICES, CORE | PARK [...] + + + + | PRODUCT | [id number] | | [facility] | | | UNIT [...] + + + + | EXPIRATION | [id number] | | [facility] | | | DATE [...] + + + + | BLOOD | [id number] | | [facility] | | | PRODUCT [...] + + | [facility] DEPARTMENT | [address] | [place] [address] | | | PATHOLOGY | [address] [...] [facility] | [address] | [place] [address] | | | SERVICES, CORE | PARK [...] [facility] | [address] | [place] [address] | | | SERVICES, CORE | DEBI [...] [facility] | [address] | [place] [address] | | | SERVICES, CORE | PARK [...] [facility] | [address] | [place] [address] | | | SERVICES, CORE | PARK [...] [facility] | [address] | [place] [address] | | | INDRA SHARIF | DEBI [...] + + + + | PRODUCT | [id number] | | [facility] | | | UNIT [...] + + + + | EXPIRATION | [id number] | | [facility] | | | DATE [...] + + + + | BLOOD | [id number] | | [facility] | | | PRODUCT [...] + + | [facility] DEPARTMENT OF | [address] | [place] [address] | | | PATHOLOGY | [address] [...] [facility] | [address] | [place] [address] | | | INDRA SHARIF | DEBI [...] [facility] | [address] | [place] [address] | | | INDRA SHARIF | DEBI [...] [facility] | [address] | [place] [address] | | | SERVICES, CORE | [address] | | | + + + + + MAGNESIUM, PLASMA (06/12/2015 11:17 PM PST) + +-------+ + + + | Component | Value | Ref Range | Performed | Pathologist | | | | | At | Signature | + +-------+ + + + | MAGNESIUM,P | 2.0 | 1.8 - 2.5 mg/dL | [facility] | | | LASMA | | | [...] [facility] | [address] | [place] [address] | | | SERVICES, CORE | DEBI [...] | [address] | [place] [address] | | | SERVICES, CORE | DEBI [...] LABORATORY | [address] | [place] [address] | | | SERVICES, CORE | DEBI [...] [facility] | [address] | [place] [address] | | | SERVICES, CORE | PARK [...] [facility] | [address] | [place] [address] | | | SERVICES, CORE | PARK [...] [facility] | [address] | [place] [address] | | | SERVICES, CORE | PARK [...] [facility] | [address] | [place] [address] | | | INDRA SHARIF | DEBI [...] [facility] | [address] | [place] [address] | | | SERVICES, CORE | PARK [...] [facility] | [address] | [place] [address] | | | SERVICES, CORE | [address] | | | + + + + + PHOSPHORUS, PLASMA (06/11/2015 11:30 PM PST) + +---------+ + + + | Component | Value | Ref Range | Performed | Pathologist | | | | | At | Signature | + +---------+ + + + | PHOSPHORUS, | 1.8 (L) | 2.4 - 4.7 mg/dL | [facility] | | | PLASMA | | | [...] [facility] | [address] | [place] [address] | | | SERVICES, CORE | PARK [...] [facility] | [address] | [place] [address] | | | INDRA SHARIF | DEBI [...] | + + + + + | [facility] | [address] | [place] [address] | | | SERVICES, CORE | DEBI [...] + + + + | PRODUCT | [id number] | | [facility] | | | UNIT [...] + + + + | EXPIRATION | [id number] | | [facility] | | | DATE [...] + + + + | BLOOD | [id number] | | [facility] | | | PRODUCT [...] + + | [facility] | [address] | [place] [address] | | | PATHOLOGY | [address] [...] + + + + | PRODUCT | [id number] | | [facility] | | | UNIT [...] + + + + | EXPIRATION | [id number] | | [facility] | | | DATE [...] + + + + | BLOOD | [id number] | | [facility] | | | PRODUCT [...] + + | [facility] DEPARTMENT | [address] | [place] [address] | | | PATHOLOGY | [address] [...] [facility] | [address] | [place] [address] | | | SERVICES, | [address] [...] [facility] | [address] | [place] [address] | | | SERVICES, | [address] [...] [facility] | [address] | [place] [address] | | | SERVICES, CORE | PARK [...] [facility] | [address] | [place] [address] | | | SERVICES, CORE | PARK [...] [facility] | [address] | [place] [address] | | | SERVICES, CORE | PARK [...] [facility] | [address] | [place] [address] | | | SERVICES, CORE | PARK [...] [facility] | [address] | [place] [address] | | | SERVICES, INDRA | DEBI [...] [facility] | [address] | [place] [address] | | | SERVICES, CORE | PARK [...] [facility] | [address] | [place] [address] | | | KOLE, INDRA | DEBI [...] [facility] | [address] | [place] [address] | | | SERVICES, CORE | DEBI [...] [facility] | [address] | [place] [address] | | | SERVICES, CORE | PARK [...] | + + + + + | [facility] | [address] | [place] [address] | | | SERVICES, CORE | DEBI [...] [facility] | [address] | [place] [address] | | | SERVICES, CORE | PARK [...] + + | [facility] [employer] | [address] | [place] [address] | | | SERVICES, CORE | DEBI [...] | + + + + + | [facility] | [address] | [place] [address] | | | SERVICES, CORE | DEBI [...] | + + + + + | [facility] | [address] | [place] [address] | | | [place] | | | | + + + [...] | + + + + + | [facility] - | [address] | [place] [address] | | | [place] | | | | + + + [...] No squamous epithelial cells No polymorphonuclear | [facility] - | | cells No organisms seen | [place] | + + + + + + + + | Performing | Address | City/State/Zipcode | Phone Number | | Organization | | | | + + + + + | [facility] | [address] | [place] [address] | | | [place] | | | | + + + [...] [facility] | [address] | [place] [address] | | | SERVICES, SPECIAL | PARK [...] [facility] | [address] | [place] [address] | | | SERVICES, SPECIAL | PARK [...] [facility] | [address] | [place] [address] | | | SERVICES, CORE | DEBI [...] + + + + | PRODUCT | [id number] | | [facility] | | | UNIT [...] + + + + | EXPIRATION | [id number] | | [facility] | | | DATE [...] + + + + | BLOOD | [id number] | | [facility] | | | PRODUCT [...] + + | [facility] DEPARTMENT | [address] | [place] [address] | | | PATHOLOGY | [address] [...] [facility] | [address] | [place] [address] | | | SERVICES, CORE | PARK [...] | | | | | | CD123 ([id number], | | | | | | 05/27/) [...] and | | | | | | [id number] Case | | | | | | [...] | | | | | CD33, CD34, [id number], | | | | | | partial [...] CD34 | | | | | | [id number] CD64 CD71 CD117 | | | | [...] + + | [facility] | [address] | [place] [address] | | | PATHOLOGY | [address] [...] [facility] | [address] | [place] [address] | | | SERVICES, CORE | PARK [...] [facility] | [address] | [place] [address] | | | SERVICES, CORE | PARK [...] [facility] | [address] | [place] [address] | | | SERVICES, CORE | PARK [...] + + | [facility] [employer] | [address] | [place] [address] | | | SERVICES, CORE | DEBI [...] [facility] | [address] | [place] [address] | | | SERVICES, CORE | PARK [...] | | | | | determined by [facility] | | | | | | Laboratories. See | | | | | | Compliance Statement B: | | | | | | 3225 films.kSARIA/CSPerformed | | | | | | by [employer],[address] | | | | | | Junaid Elizondo, [facility],[place] | | | | | | [address] | | | | | | [phone].[email or web address]. | | | | | | [facility], Elmo Roberts, | | | [...] [facility] | [address] | [place], [place] | | | [facility] | | [address] | | + + + + + [...] + + + + | PRODUCT | [id number] | | [facility] | | | UNIT [...] + + + + | EXPIRATION | [id number] | | [facility] | | | DATE [...] + + + + | BLOOD | [id number] | | [facility] | | | PRODUCT [...] [facility] DEPARTMENT | [address] | [place] [address] | | | PATHOLOGY | [address] [...] | + + + + + | [facility] | [address] | [place] [address] | | | SERVICES, CORE | DEBI [...] [facility] | [address] | [place] [address] | | | SERVICES, CORE | PARK [...] [facility] | [address] | [place] [address] | | | SERVICES, CORE | [address] | | | + + + + + MAGNESIUM, PLASMA (06/07/2015 11:30 PM PST) + +-------+ + + + | Component | Value | Ref Range | Performed | Pathologist | | | | | At | Signature | + +-------+ + + + | MAGNESIUM,P | 2.1 | 1.8 - 2.5 mg/dL | [facility] | | | LASMA | | | [...] [facility] | [address] | [place] [address] | | | SERVICES, CORE | PARK [...] + + + | [facility] | [address] | [place] [address] | | | SERVICES, CORE | DEBI [...] [facility] | [address] | [place] [address] | | | SERVICES, CORE | DEBI [...] + + + + | PRODUCT | [id number] | | [facility] | | | UNIT [...] + + + + | EXPIRATION | [id number] | | [facility] | | | DATE [...] + + + + | BLOOD | [id number] | | [facility] | | | PRODUCT [...] | + + + + + | [facility] DEPARTMENT OF | [address] | [place] [address] | | | PATHOLOGY | [address] [...] | + + + + + | [facility] | [address] | [place] [address] | | | SERVICES, CORE | DEBI [...] [facility] | [address] | [place] [address] | | | INDRA SHARIF | DEBI [...] [facility] | [address] | [place] [address] | | | SERVICES, CORE | DEBI [...] [facility] | [address] | [place] [address] | | | SERVICES, CORE | PARK [...] [facility] | [address] | [place] [address] | | | SERVICES, CORE | DEBI [...] [facility] | [address] | [place] [address] | | | SERVICES, CORE | PARK [...] [facility] | [address] | [place] [address] | | | SERVICES, CORE | DEBI [...] [facility] | [address] | [place] [address] | | | KOLE | [address] [...] + + + + | PRODUCT | [id number] | | [facility] | | | UNIT [...] + + + + | EXPIRATION | [id number] | | [facility] | | | DATE [...] + + + + | BLOOD | [id number] | | [facility] | | | PRODUCT [...] DEPARTMENT OF | [address] | [place] [address] | | | PATHOLOGY | [address] [...] + + + + | PRODUCT | [id number] | | [facility] | | | UNIT [...] + + + + | EXPIRATION | [id number] | | [facility] | | | DATE [...] + + + + | BLOOD | [id number] | | [facility] | | | PRODUCT [...] DEPARTMENT OF | [address] | [place] [address] | | | PATHOLOGY | [address] [...] LABORATORY | [address] | [place] [address] | | | SERVICES, | [address] [...] [facility] | [address] | [place] [address] | | | SERVICES, | [address] [...] | + + + + + | [facility] | [address] | [place] [address] | | | SERVICES, CORE | DEBI [...] [facility] | [address] | [place] [address] | | | SERVICES, CORE | DEBI [...] [facility] | [address] | [place] [address] | | | SERVICES, INDRA | PARK [...] [facility] | [address] | [place] [address] | | | SERVICES, CORE | DEBI [...] [facility] | [address] | [place] [address] | | | KOLE, CORE | PARK [...] [facility] | [address] | [place] [address] | | | INDRA SHARIF | DEBI [...] | | + +---------+ + + | [facility] DEPARTMENT OF | | [...] + + + + | PRODUCT | [id number] | | [facility] | | | UNIT [...] + + + + | EXPIRATION | [id number] | | [facility] | | | DATE [...] + + + + | BLOOD | [id number] | | [facility] | | | PRODUCT [...] DEPARTMENT OF | [address] | [place] [address] | | | PATHOLOGY | [address] [...] + + | [facility] | [address] | [place] [address] | | | SERVICES, CORE | P[address] [...] [facility] | [address] | [place] [address] | | | SERVICES, CORE | [address] | | | + + + + + PHOSPHORUS, PLASMA (06/05/2015 12:09 AM PST) + +-------+ + + + | Component | Value | Ref Range | Performed | Pathologist | | | | | At | Signature | + +-------+ + + + | PHOSPHORUS, | 2.7 | 2.4 - 4.7 mg/dL | [facility] | | | PLASMA | | | [...] | + + + + + | [facility] | [address] | [place] [address] | | | SERVICES, CORE | DEBI [...] [facility] | [address] | [place] [address] | | | KOLE, INDRA | DEBI [...] | + + + + + | [facility] | [address] | [place] [address] | | | KOLE, INDRA | DEBI [...] [facility] | [address] | [place] [address] | | | SERVICES, CORE | PARK [...] [facility] | [address] | [place] [address] | | | SERVICESINDRA | [address] [...] [facility] | [address] | [place] [address] | | | SERVICES, CORE | DEBI [...] [facility] | [address] | [place] [address] | | | SERVICES, CORE | PARK [...] [facility] | [address] | [place] [address] | | | SERVICES, CORE | [address] [...] [facility] | [address] | [place] [address] | | | KOLE, INDRA | DEBI [...] | + + + + + | [facility] | [address] | [place] [address] | | | SERVICES, CORE | DEBI [...] [facility] | [address] | [place] [address] | | | SERVICES, CORE | PARK [...] [facility] | [address] | [place] [address] | | | INDRA SHARIF | DEBI [...] | + + + + + | [employer] | [address] | [place] [address] | | | SERVICES, CORE | DEBI [...] [facility] | [address] | [place] [address] | | | SERVICES, CORE | PARK [...] [facility] | [address] | [place] [address] | | | SERVICES, INDRA | PARK [...] [facility] | [address] [facility] | [place] [address] | | | SERVICES, CORE | DEBI [...] [facility] | [address] | [place] [address] | | | SERVICES, CORE | PARK [...] [facility] | [address] | [place] [address] | | | SERVICES, INDRA | DEBI [...] [facility] | [address] | [place] [address] | | | SERVICES, CORE | DEBI [...] [facility] | [address] | [place] [address] | | | SERVICES, CORE | PARK [...] [facility] | [address] | [place] [address] | | | SERVICES, CORE | PARK [...] the MDRD equation recommended by the | [facility] | | National Kidney Disease Education Program. [...] [facility] | [address] | [place] [address] | | | KOLE, CORE | DEBI [...] [facility] | [address] | [place] [address] | | | SERVICES, CORE | PARK [...] [facility] | [address] | [place] [address] | | | SERVICES, CORE | PARK [...] [facility] | [address] | [place] [address] | | | KOLE, INDRA | PARK [...] + + | [facility] | [address] | [place] [address] | | | SERVICES, CORE | DEBI [...] [facility] | [address] | [place] [address] | | | SERVICES, CORE | PARK [...] [facility] | [address] | [place] [address] | | | SERVICES, CORE | PARK [...] [facility] | [address] | [place] [address] | | | SERVICES, CORE | DEBI [...] [facility] | [address] | [place] [address] | | | SERVICES, CORE | PARK [...] [facility] | [address] | [place] [address] | | | SERVICES, CORE | DEBI [...] [facility] | [address] | [place] [address] | | | SERVICES, CORE | PARK [...] + + | [facility] [facility] | [address] | [place] [address] | | | INDRA SHARIF | DEBI [...] | + + + + + | [facility] | [address] | [place] [address] | | | SERVICES, CORE | PARK [...] [facility] | [address] | [place] [address] | | | SERVICES, INDRA | DEBI [...] [facility] | [address] | [place] [address] | | | SERVICES, CORE | DEBI [...] | [address] | [place] [address] | | | SERVICES, CORE | PARK [...] [facility] | [address] | [place] [address] | | | SERVICES, CORE | PARK [...] the MDRD equation recommended by the | [facility] | | National Kidney Disease Education Program. [...] [facility] | [address] | [place] [address] | | | KOLE, INDRA | DEBI [...] [facility] | [address] | [place] [address] | | | SERVICES, CORE | PARK [...] [facility] BO[facility] | [address] | [place] [address] | | | SERVICES, CORE | DEBI [...] [facility] | [address] | [place] [address] | | | SERVICES, CORE | PARK [...] [facility] | [address] | [place] [address] | | | SERVICES, CORE | PARK [...] [facility] | [address] | [place] [address] | | | SERVICES, INDRA | DEBI [...] [facility] | [address] | [place] [address] | | | SERVICES, CORE | PARK [...] [facility] | [address] | [place] [address] | | | SERVICES, CORE | PARK [...] [facility] | [address] | [place] [address] | | | SERVICES, CORE | DEBI [...] [facility] | [address] | [place] [address] | | | SERVICES, CORE | DEBI [...] [facility] | [address] | [place] [address] | | | SERVICES, CORE | DEBI [...] [facility] | [address] | [place] [address] | | | SERVICES, INDRA | DEBI [...] | [address] | [place] [address] | | | SERVICES, CORE | PARK [...] the MDRD equation recommended by the | [facility] | | National Kidney Disease [...] [facility] | [address] | [place] [address] | | | SERVICES, CORE | PARK [...] [facility] | [address] | [place] [address] | | | SERVICES, CORE | DEBI [...] [facility] | [address] | [place] [address] | | | SERVICES, CORE | PARK [...] YESSICA LOZA | [address] | [place] [address] | | | SERVICES, CORE | PARK [...] [facility] | [address] | [place] [address] | | | SERVICES, CORE | PARK [...] LABORATORY | [address] | [place] [address] | | | SERVICES, CORE | PARK [...] [facility] | [address] | [place] [address] | | | SERVICES, CORE | DEBI [...] [facility] | [address] | [place] [address] | | | SERVICES, CORE | PARK [...] ANION GAP | 7 | mmol/L | [facility] | | | | [...] [facility] | [address] | [place] [address] | | | INDRA SHARIF | DEBI [...] [facility] | [address] | [place] [address] | | | INDRA SHARIF | DEBI [...] | | | | Test performed by [employer] [facility] [place] Garcia, | | | [place] [address] | | | www.[employer] | | | | | |[place] Self Representation Document Preparation.[employer] | | | | | | | [...] [facility] | [address] | [place] [address] | | | SERVICES, SPECIAL | DEBI [...] by | | | | | | [employer],500 | | | | | | Junaid Elizondo, [facility],[place] | | | | | | [address] | | | | | | [phone].[facility]. | | | | | | [...] [facility] | [address] | [place], [place] | | | [facility] | | [address] | | + + + + + [...] [facility] | [address] | [place] [address] | | | SERVICES, | [address] [...] + + + + | [facility] | [address] | [place] [address] | | | DIAGNOSTIC | [address] [...] [facility] | [address] | [place] [address] | | | SERVICES, SPECIAL | DEBI [...] + + + | XRAY | EXAM: AR CHEST PICC LINE | | | | [...] DEPT OF | [address] | [place], [place] | | | CARDIOLOGY | [address] | [address] | | + + + + + [...] [facility] BO[facility] | [address] | [place] [address] | | | SERVICES, | [address] [...] [facility] | [address] | [place] [address] | | | SERVICES, CORE | PARK [...] [facility] | [address] | [place] [address] | | | SERVICES, CORE | PARK [...] | [address] | [place] [address] | | | SERVICES, CORE | PARK [...] YESSICA LOZA | [address] | [place] [address] | | | KOLE, INDRA | DEBI [...] [facility] | [address] | [place] [address] | | | SERVICES, CORE | DEBI [...] the MDRD equation recommended by the | [facility] | | National Kidney Disease Education Program. Estimated GFR | LABORATORY | | Interpretive Information: <60 mL/min/1.73 sq m | OKLE, CORE | | Chronic Kidney Disease <15 [...] + + | Performing | Address | City/State/[facility] | Phone Number | | Organization | | | | + + + + + | [facility] | [address] | [place] [address] | | | SERVICES, CORE | DEBI [...] [facility] | [address] | [place] [address] | | | SERVICES, CORE | DEBI [...] [facility] | [address] | [place] [address] | | | SERVICES, CORE | PARK [...] [facility] | [address] | [place] [address] | | | SERVICES, CORE | PARK [...] | [facility] | [address] | [place] [address] | | | SERVICESINDRA | [address] [...] FOR BO[facility] | [address] | [place] [address] | | | SERVICES, CORE | DEBI [...] + + + | [facility] | [address] | [place] [address] | | | DIAGNOSTIC | [address] [...] [facility] | [address] | [place] [address] | | | SERVICES, | [address] [...] [facility] | [address] | [place] [address] | | | SERVICES, | [address] [...] | + + + + + | [facility] - | [address] | [place] [address] | | | [place] | | | [...] | + + + + + | [employer] [facility] AIR[facility] - | [address] | [place] [address] | | | [facility] | | | | + + + [...] + | [facility] - | [address] | [place] [address] | | | [place] | | | [...] | [address] | [place] [address] | | | SERVICES, SPECIAL | DEBI [...] [facility] | [address] | [place] [address] | | | SERVICES, CORE | PARK [...] [facility] | [address] | [place] [address] | | | SERVICES, CORE | DEBI [...] [facility] | [address] | [place] [id number] | | | SERVICES, CORE | DEBI [...] [facility] | [address] | [place] [address] | | | INDRA SHARIF | PARK [...] [facility] | [address] | [place] [address] | | | SERVICES, CORE | DEBI [...] FOR [facility] | [address] | [place] [address] | | | SERVICES, CORE | PARK [...] [place] | | | | | | [id number] (8q21.3) (SO) / | | | | [...] / | | | | | | [id number] (5p15.2) | | | | | | (SG)Cells Scored: | | | | | | 200 Probe(s): | | | | | | [place] [id number] (7q31) | | | | | | (SO) / CEP 7 (SG) | | | | | | Cells Scored: | | | | | | 200 Probe(s): [place] | | | | | | CEP 8 (SA)Cells Scored: | | | | | | 200 Probe(s): | | | | | | [place] [id number] (20q12) | | | | | | [...] | | | | | by the [employer] | | | | | | Laboratory [...] 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 | | | | | | Rendering [...] + + + + | [facility] | [address] | [place] [address] | | | DIAGNOSTIC | [address] [...] HEMATOPATHO | SOURCE OF SPECIMEN:A | | [facility] | | | LOGY | Peripheral Blood 1x4ml | | DEPARTMENT | | | | Clinical | | OF | | | | History:The patient is a | | PATHOLOGY | | | | 24 year old man | | | | | | transferred to [facility] with | | | | | | [...] CD117, | | | | | | vynLL729. Comment: | | | | | | [...] | | | | | events and bkixvlg38% T | | | | | | [...] | | | | | | CD8 [id number] | | | | | | CD13 CD14 CD15 CD16 CD19 | | | | | | CD20 [id number] CD34 CD38 | | | | | | CD45 CD56 CD58 CD64 | | | | | | [id number] CD117 | | | | | | [...] + + | [facility] | [address] | [place] [address] | | | PATHOLOGY | [address] | | | + + + + + [facility] AML/MDS GENE MUTATION PANEL, BLOOD (PP) (05/27/2015) + + + + + + | Component | Value | Ref Range | Performed | Pathologist | | | | | At | Signature | + + + + + + | [facility] | A [facility] AML/MDS | | [facility] | | | AML/MDS | Gene Mutation [...] NRASMutation: | | | | | | p.L43TEirqzs [place]le | | | | | | frequency: ~40%Variant | | | | | | ID: [id number] | | | | | | NRAS [...] ofdownstream | | | | | | UZF-YLN-LUD-ERK | | | | | | signaling [...] mutations | | | | | | ([id number]). | | | | | | Average# [...] and | | | | | | Tabiona sequencing are | | | | | [...] supplementary | | | | | | auj-pppsjealkb-ygnon | | | | | | assay [...] | | | | | | VarNRAS SKDR180.1 hg19 | | | | | | chr1 [id number] | | | | | | [id number] C A | | | | | [...] # | | | | | | [id number]. It has not | | | | [...] | | | | | determined bythe [facility] | | | | [...] | | | | | | The [facility] | | | | | | DiagnosticsLaboratories | | | | | | is a fully licensed | | | | | | and/or accredited | | | | | | clinical laboratoryunder | | | | | | CLIA, [place], and the | | | | | | State of [place]. | | | | | | Rendering [...] + + + + | [facility] | [address] | [place] [address] | | | DIAGNOSTIC | [address] [...] | | | | | | Institution: [facility] | | | | | | [facility] | | | | | | [place], [place], [address]Kzmsrlj | | | | | | Accession Number: | | | | | | [id number] | | | | | | Collection [...] | | | | | performed at [facility] | | | | | | [id number], 05/27/2015) | | | | | | [...] analysis | | | | | | ([facility]): | | | | | | The bone marrow aspirate | | | | | | isnegative for CEBPA, | | | | | | NMP1 and FLT3 ITD. | | | | | | Cytogenetic analysis | | | | | | ([facility]): | | | | | | Normal male karyotype. | | | | | | 46,XY[20] FISH | | | | | | Study ([facility] | | | | | | Diagnostics): [...] + + | [facility] | [address] | [place] [address] | | | PATHOLOGY | [address] [...] | | | | | NEEDED, Starting [facility] 05/27/15 at | | | | | [...] | 10 mL | | | | gdhwqrqxakLWAOP-ladkivpmm-LBXLSM | | 15 12:24 | | | [...] 7:25 | | | | | dose, [facility] 07/08/15 at 0715 | | AM PST | | | | + +---------+ +------+---+---+ +---+---+ | | | +---+---+ + +-------+ +--------+---+---+ | LORazepam (ATIVAN) tablet 0.5 | Given | 05/29/20 | 0.5 mg | | | | mg 0.5 mg, oral, EVERY 24 HOURS | | 15 9:59 | | | | | NEEDED, Starting [facility] 05/27/15 | | PM PST | | [...] PST | | | | | Until [facility] 07/08/15 at 2307, | | | | [...] + + +---+---+---+ | morphine 5 mg/mL RN TRAUMA infusion | Rate/Dos | 06/10/20 | | [...] PST | | | | | Until [facility] 06/03/15 at 2218 | | | | [...] PST | | | | | Until [facility] 06/16/15 at 1235 | | | | [...] | | | | | 0026, Until [facility] 06/03/15 at 1630, | | | | [...] PST | | | | | Until [facility] 07/08/15 at 2307, | | | | [...]
--- OUTSIDE RECORDS SUMMARY | ~2019-05-17 | XMS | Encounter Summary ---
Demographics + + + | Address | [address] | | | [place] [address] | + + + | Home Phone [...] Team Providers + +------+ + | Care Osteology Teacher Name | Role | Phone | [...] | | | | | | | [address] | | | | | | | [place] | | | | | | | [place], | | | | | | | [place] | | | | | | | [address] | | | | | | | Phone: | | | | | | | [phone] | | | | | | | Fax: | | | | | | | [phone] | +--------+--------+ + + + + Encounter [...] | | | | | | [address] | | | | | | [place], | | | | | | [place] [address] | | | | | | [phone] | | | +--------+ + + + [...] Rd | | | | | | [place], [place] | | | | | | [address] | | | | | | [phone] | | | | | | | [...] the | | | | PST | ([facility]) | results section. | + +--------+ + + + | TYPE AND SCREEN | Routin | 07/15/2015 | Acute myeloid | Results for this | | | e | 3:22 PM | leukemia (AML), M4 | procedure are in the | | | | PST | ([facility]) | results section. | + +--------+ + + + | ABO & RH TYPE | Routin | 07/15/2015 | Acute myeloid | Results for this | | | e | 3:22 PM | leukemia (AML), M4 | procedure are in the | | | | PST | ([facility]) | results section. | + +--------+ + + + | INF DISEASE MISC | Routin | 07/15/2015 | Acute myeloid | Results for this | | | e | 3:21 PM | leukemia (AML), M4 | procedure are in the | | | | PST | ([facility]) | results section. | + +--------+ + + + | INF DISEASE NATHALIA | Routin | 07/15/2015 | Acute myeloid | Results for this | | | e | 3:21 PM | leukemia (AML), M4 | procedure are in the | | | | PST | ([facility]) | results section. | + +--------+ + + + | INF DISEASE SCREEN | Routin | 07/15/2015 | Acute myeloid | Results for this | | | e | 3:21 PM | leukemia (AML), M4 | procedure are in the | | | | PST | ([facility]) | results section. | + +--------+ + + + | INFECT DISEASE | Routin | 07/15/2015 | Acute myeloid | Results for this | | MARKER PANEL | e | 3:21 PM | leukemia (AML), M4 | procedure are in the | | | | PST | ([facility]) | results section. | + +--------+ + + + | CBC AND AUTO DIFF | Routin | 07/15/2015 | Acute myeloid | Results for this | | | e | 3:21 PM | leukemia (AML), M4 | procedure are in the | | | | PST | ([facility]) | results section. | + +--------+ + + + | LIT - HLA | Routin | 07/15/2015 | Acute myeloid | | | VERIFICATION TYPING | e | 3:21 PM | leukemia (AML), M4 | | | CLASS II | | PST | ([facility]) | | + +--------+ + + + | LIT - HLA | Routin | 07/15/2015 | Acute myeloid | | | VERIFICATION TYPING | e | 3:21 PM | leukemia (AML), M4 | | | CLASS I | | PST | ([facility]) | | + +--------+ + + + | LIT FLOW HLA AB PRA | Routin | 07/15/2015 | Acute myeloid | | | SCREEN I/II | e | 3:21 PM | leukemia (AML), M4 | | | | | PST | ([facility]) | | + +--------+ + + + | CMV PCR | Routin | 07/15/2015 | Acute myeloid | Results for this | | QUANTITATION, PLASMA | e | 3:21 PM | leukemia (AML), M4 | procedure are in the | | | | PST | ([facility]) | results section. | + +--------+ + + + | INR | Routin | 07/15/2015 | Acute myeloid | Results for this | | | e | 3:21 PM | leukemia (AML), M4 | procedure are in the | | | | PST | ([facility]) | results section. | + +--------+ + + + | CBC, WITH | Routin | 07/15/2015 | Acute myeloid | Results for this | | DIFFERENTIAL | e | 3:21 PM | leukemia (AML), M4 | procedure are in the | | | | PST | ([facility]) | results section. | + +--------+ + + + | VARICELLA ZOSTER | Routin | 07/15/2015 | Acute myeloid | Results for this | | IGG, SERUM | e | 3:21 PM | leukemia (AML), M4 | procedure are in the | | | | PST | ([facility]) | results section. | + +--------+ + + + | HSV ANTIBODY, SERUM | Routin | 07/15/2015 | Acute myeloid | Results for this | | | e | 3:21 PM | leukemia (AML), M4 | procedure are in the | | | | PST | ([facility]) | results section. | + +--------+ + + + | TOMMY VOSS VIRUS | Routin | 07/15/2015 | Acute myeloid | Results for this | | PANEL, SERUM | e | 3:21 PM | leukemia (AML), M4 | procedure are in the | | | | PST | ([facility]) | results section. | + +--------+ + [...] the | | | | PST | ([facility]) | results section. | + +--------+ + + + | TOXOPLASMA IGG AB, | Routin | 07/15/2015 | Acute myeloid | Results for this | | SERUM | e | 3:21 PM | leukemia (AML), M4 | procedure are in the | | | | PST | ([facility]) | results section. | + +--------+ + + + | PHOSPHORUS, PLASMA | Routin | 07/15/2015 | Acute myeloid | Results for this | | | e | 3:21 PM | leukemia (AML), M4 | procedure are in the | | | | PST | ([facility]) | results section. | + +--------+ + + + | HEPATITIS A AB IGM, | Routin | 07/15/2015 | Acute myeloid | Results for this | | SERUM | e | 3:21 PM | leukemia (AML), M4 | procedure are in the | | | | PST | ([facility]) | results section. | + +--------+ + + + | HEPATITIS B SURFACE | Routin | 07/15/2015 | Acute myeloid | Results for this | | AB QUAL, SERUM | e | 3:21 PM | leukemia (AML), M4 | procedure are in the | | | | PST | ([facility]) | results section. | + +--------+ + + + | HEPATITIS A AB | Routin | 07/15/2015 | Acute myeloid | Results for this | | SCREEN, SERUM | e | 3:21 PM | leukemia (AML), M4 | procedure are in the | | | | PST | ([facility]) | results section. | + +--------+ + + + | BILIRUBIN DIRECT | Routin | 07/15/2015 | Acute myeloid | Results for this | | | e | 3:21 PM | leukemia (AML), M4 | procedure are in the | | | | PST | ([facility]) | results section. | + +--------+ + + + | URIC ACID, PLASMA | Routin | 07/15/2015 | Acute myeloid | Results for this | | | e | 3:21 PM | leukemia (AML), M4 | procedure are in the | | | | PST | ([facility]) | results section. | + +--------+ + + + | MAGNESIUM, PLASMA | Routin | 07/15/2015 | Acute myeloid | Results for this | | | e | 3:21 PM | leukemia (AML), M4 | procedure are in the | | | | PST | ([facility]) | results section. | + +--------+ + + + | LDH TOTAL, PLASMA | Routin | 07/15/2015 | Acute myeloid | Results for this | | | e | 3:21 PM | leukemia (AML), M4 | procedure are in the | | | | PST | ([facility]) | results section. | + +--------+ + + + | CHOLESTEROL TOTAL, | Routin | 07/15/2015 | Acute myeloid | Results for this | | PLASMA | e | 3:21 PM | leukemia (AML), M4 | procedure are in the | | | | PST | ([facility]) | results section. | + +--------+ + [...] [facility] | [address] | [place] [address] | | | SERVICES, | [address] [...] | + + + + + | [facility] | [address] | [place] [address] | | | SERVICES, | [address] [...] + | [facility] - | [address] | [place] [address] | | | [place] | | | [...] + + + | Testing performed at [facility] | [facility] | | Laboratory [address] [place] [address] | CELL PROCESSING | | | LAB | + + + + + + + + | Performing | Address | City/State/Zipcode | Phone Number | | Organization | | | | + + + + + | [facility] | [address] | [place], [place] | | | PROCESSING LAB | [address] | [address] | | + + + + + [...] [facility] | [address] | [place], [place] | | | PROCESSING LAB | [address] | [address] | | + + + + + [...] + + + | Testing performed at [facility] | [facility] | | Laboratory [address] [place] [address] | CELL PROCESSING | | | LAB | + + + + + + + + | Performing | Address | City/State/Zipcode | Phone Number | | Organization | | | | + + + + + | [facility] | [address] | [place], [place] | | | PROCESSING LAB | [address] | [address] | | + + + + + [...] [facility] | [address] | [place] [address] | | | INDRA SHARIF | [address] [...] [facility] - | [address] | [place] [address] | | | IMMUNOGENETICS/TRANS | [address] [...] + + | [facility] - | [address] | [place] [address] | | | IMMUNOGENETICS/TRANS | [address] [...] [facility] - | [address] | [place] [address] | | | IMMUNOGENETICS/TRANS | [address] [...] 2 fold may not reflect true | [facility] | | biological changes and must [...] | | | characteristics determined by the [facility] | | | Molecular [...] | | | Act of 1988. The [facility] Molecular | | | Diagnostic Center is a fully licensed and/or accredited clinical | | | laboratory under CLIA, [facility], and the [facility]. | | + + + + + + + + | Performing | Address | City/State/Zipcode | Phone Number | | Organization | | | | + + + + + | [facility] | [address] | [place] [address] | | | DIAGNOSTIC | [address] [...] at | | | | | | [email or web address] | | | | | | x. [...] at | | | | | | [email or web address] | | | | | | x. [...] at | | | | | | [email or web address].[email or web address] | | | | | | x. [...] at | | | | | | [email or web address]/[email or web address] | | | | | | x.Performed by [facility] | | | | | | [facility] | | | | | | M[place], [place] [address] | | | | | | [phone]. | | | | | | [facility], [address], | | | [...] [facility] | [address] | [place], [place] | | | [facility] [facility] | | [address] | | + + + + + [...] + | [facility] - | [address] | [place] [address] | | | [place] | | | | + + + [...] + | [facility] - | [address] | [place] [address] | | | [place] | | | [...] + | [facility] - | [address] | [place] [address] | | | [place] | | | [...] + | [facility] - | [address] | [place] [address] | | | [place] | | | | + + + [...] | | | | | | Laboratories,[address] [facility] | | | | | | [place] [address] | | | | | | [phone]. | | | | | | Elmo [...] [facility] | [address] | [place], [place] | | | [facility] [place] | | [address] | | + + + + + [...] + + | [facility] | [address] | [place] [address] | | | SERVICES, CORE | [address] [...] [facility] | [address] | [place] [address] | | | SERVICES, CORE | [address] [...] | + + + + + | [facility] | [address] | [place] [address] | | | SERVICES, CORE | [address] [...] [facility] | [address] | [place] [address] | | | SERVICES, CORE | [address] [...] | + + + + + | [facility] | [address] | [place] [address] | | | SERVICES, CORE | [address] [...] [facility] | [address] | [place] [address] | | | SERVICES, CORE | PARK [...] [facility] | [address] | [place] [address] | | | SERVICES, INDRA | [address] [...] | + + + + + | [facility] | [address] | [place] [address] | | | SERVICES, CORE | [address] [...] | | | LABORATORY | | | [place] | | | SERVICES, | | | [...] [facility] | [address] | [place] [address] | | | SERVICES, CORE | [address] | | | + + + + + documented in this encounter Visit Diagnoses + + | Diagnosis | + + | Acute myeloid leukemia (AML), M4 (HCC) | + + documented in this encounter"
--- OUTSIDE RECORDS SUMMARY | ~2019-05-17 | XMS | Encounter Summary ---
Demographics + + + | Address | [address] | | | [place] [address] | + + + | Home Phone [...] Team Providers + +------+ + | Care Chiropractic Teacher Name | Role | Phone | [...] | 2017 | | Hematologic | [address] [facility] | | | | | Malignancies at | [facility] | | | | | [place] Barry | [place], [place] | | | | | [address] [facility] | [address] | | | | | [facility] Mailcode: | [phone] | | | | | [id number] | | | | | | [place], | | | | | | [place] [address] | | | | | | [phone] | | | +--------+--------+ + + + [...] 2019 | Visit | Malignancy | [address] [facility] | | | | | | [address] | | | | | | [place] | | | | | | [address] | | | | | | [phone] | | | | | | | | +--------+---------+ + + + documented as of this encounter Visit Diagnoses Not on filedocumented in this encounter"
--- OUTSIDE RECORDS SUMMARY | ~2019-05-17 | XMS | Encounter Summary ---
Demographics + + + | Address | [address] | | | [place] [address] | + + + | Home Phone [...] + +------+ + | Care Motor Vehicle Operator Road Supervisor Name | Role | Phone | [...] | Hematology | Diagnoses | Cook, | [employer] | | | | Malignancy | 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, | [address] | Wally Burger | | | | | not having | [place] | Mailcode: | | | | | achieved | [place], [place] | [id number] | | | | | remission | [address] | [place] | | | | | | Phone: | Pavilion | | | | | Procedures | [phone] | [place], [place] | | | | | Post BMT | Fax: | [phone] | | | | | Auth to | [phone] | Phone: | | | | | included | | [phone] | | | | | facility, | | Fax: | | | | | diagnostics, | | [phone] | | | | | office | [...] ); Transplant | | | | [facility] [place] | | follow-up (Em | | | | [place], | | JULIANA Saunders ) | | | | [place] [address] | | | | | | [phone] | | | +--------+ + + + [...] MM URD (DPB1 permissive antigen mismatch, male, 9715-4342-2) Subjective: Khurram arrives in clinic with his [...] Rd | | | | | | [place], [place] | | | | | | [address] | | | | | | [phone] | | | | | | | [...] | ([facility])- primary | results section. | [...] | ([facility])- primary | results section. | [...] | | TOTAL,BILI | | PDT | ([facility])- primary | results section. | [...] | ([facility])- primary | results section. | [...] | ([facility])- primary | results section. | [...] | ([facility])- primary | results section. | [...] | ANTIGEN, SERUM | | PDT | ([facility])- primary | results section. | [...] | ([facility])- primary | results section. | [...] [facility] | [address] | [place], [place] | | | [facility] POINT OF CARE | [address] | [address] | | | TESTS | | | [...] + | [facility] - AIRPORT - | [address] | [place] [address] | | | [place] | | | [...] FOR CHILDREN | [address] | [place] [address] | | | SERVICES, CORE | WALLY [...] [facility] | [address] | [place] [address] | | | SERVICES, CORE | PARK [...] | [facility] | [address] | [place] [id number] | | | SERVICES, SPECIAL | WALLY [...] 2 fold may not reflect true | [facility] | | biological changes and must be [...] | characteristics determined by the [facility] | | | Molecular Diagnostic Center. [...] | Act of 1988. The [facility] Molecular | | | Diagnostic Center is a fully licensed and/or accredited clinical | | | laboratory under CLIA, CAP, and the [facility]. | | + + + + + + + + | Performing | Address | City/State/Zipcode | Phone Number | | Organization | | | | + + + + + | [facility] | [address] | [place] [address] | | | DIAGNOSTIC | [address] [...] + + | Performing | Address | City/State/[facility] | Phone Number | | Organization | | | | + + + + + | [facility] | [address] | [place] [address] | | | SPECIAL KOLE | WALLY [...] MACARIO | [address] | [place], [place] | | | RUTHIE CARTER OF KRISTA | [facility] | [address] | | | TESTS | | | [...]
--- OUTSIDE RECORDS SUMMARY | ~2019-05-17 | XMS | Encounter Summary ---
Demographics + + + | Address | [address] | | | [place] [address] | + + + | Home Phone [...] Team Providers + +------+ + | Care Pediatric Clinical Nurse Specialist Name | Role | Phone | [...] | | | | | Malignancies at [facility] | [address] | | | | | [address] | [place], [place] | | | | | Debi Burger Mailcode: | [address] | | | | | [facility] [place] | [phone] | | | | | Asha [place], | | | | | | [place] [address] | | | | | | [phone] | | | +--------+ + + + [...] Rd | | | | | | [place], [place] | | | | | | [address] | | | | | | [phone] | | | | | | | | +--------+---------+ + + + documented as of this encounter Visit Diagnoses Not on filedocumented in this encounter"
--- OUTSIDE RECORDS SUMMARY | ~2019-05-17 | XMS | Encounter Summary ---
Demographics + + + | Address | [address] | | | [place] [address] | + + + | Home Phone [...] Providers + +------+ + | Care Clinical Editor Name | Role | Phone | [...] | | | | | achieved | [place], [place] | [facility] | | | | | remission | [address] | [place] | | | | | | Phone: | Pavilion | | | | | Procedures | [phone] | [place], [place] | | | | | Post BMT | Fax: | [address] | | | | | Auth to | [phone] | Phone: | | | | | included | | [phone] | | | | | facility, | | Fax: | | | | | diagnostics, | | [phone] | | | | | office | [...] Intravenous infusion | | | | [facility] [place] | | (magnesium); Biopsy | | | | [place], | | (bone marrow biopsy | | | | [place] [address] | | ); Medication | | | | [phone] | | (morphine IV) | +--------+ + [...] Kelly Date: 09/27/2015 Provider: Yari Garcia MD/ JULIANA Jimenez Subjective: Patient arrived ambulatory to clinic [...] 2018 | Visit | Malignancy | [address] [facility] [address] | | | | | | [address] | | | | | | [place], [place] | | | | | | [address] | | | | | | [phone] | | | | | | | [...] the | | | | PDT | ([facility])- primary | results section. | [...] | | | | | PDT | ([facility])- primary | | | | | | induction failure | | + +--------+ + + + | TREATMENT PARAMETERS | Routin | 09/27/2015 | Acute myeloid | | | #2 - BEACON | e | 10:49 AM | leukemia (AML), M4 | | | | | PDT | ([facility])- primary | | | | [...] | | BEACON | | PDT | ([facility])- primary | | | | | | induction failure | | + +--------+ + + + | NURSING | Routin | 09/27/2015 | Acute myeloid | | | COMMUNICATION #2 - | e | 10:49 AM | leukemia (AML), M4 | | | BEACON | | PDT | ([facility])- primary | | | | | | induction failure | | + +--------+ + + + | NURSING | Routin | 09/27/2015 | Acute myeloid | | | COMMUNICATION #1 - | e | 10:49 AM | leukemia (AML), M4 | | | BE[place]ON | | PDT | ([facility])- primary | | | | | | induction failure | | + +--------+ + + + | TREATMENT PARAMETERS | Routin | 09/27/2015 | Acute myeloid | | | #1 - BEACON | e | 10:49 AM | leukemia (AML), M4 | | | | | PDT | ([facility])- primary | | | | | | induction failure | | + +--------+ + + + | TREATMENT PARAMETERS | Routin | 09/27/2015 | Acute myeloid | | | #1 - BEACON | e | 10:49 AM | leukemia (AML), M4 | | | | | PDT | ([facility])- primary | | | | | | induction failure | | + +--------+ + + + | BMP + MAG, POC CHM | Urgent | 09/27/2015 | Acute myeloid | Results for this | | | | 10:04 AM | leukemia (AML), M4 | procedure are in the | | | | PDT | ([facility])- primary | results section. 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 | | | | | | ([facility]) | | + +--------+ + + + | CMV PCR | Urgent | 09/27/2015 | Acute myeloid | Results for this | | QUANTITATION, PLASMA | | 9:18 AM | leukemia (AML), M4 | procedure are in the | | | | PDT | ([facility])- primary | results section. | [...] | | TOTAL,BILI | | PDT | ([facility])- primary | results section. | [...] the | | | | PDT | ([facility])- primary | results section. | [...] the | | | | PDT | ([facility])- primary | results section. | [...] | ANTIGEN, SERUM | | PDT | ([facility])- primary | results section. | [...] [place] | [address] | [place], [place] | | | [facility] POINT OF CARE | [address] | [address] | | | TESTS | | | [...] S[facility] | [address] | [place], [place] | | | RUTHIE CARTER OF CARE | [address] | [address] | | | TESTS | | | [...] + + + + | [facility] | [address] | [place] [address] | | | SERVICES, SPECIAL | WALLY [...] LABORATORY | [address] | [place] [address] | | | SERVICES, CORE | PARK [...] + + + + | [facility] | [address] | [place] [address] | | | SERVICES, CORE | PARK [...] | laboratory under CLIA, CAP, and the [facility]. | | + + + + + + + + | Performing | Address | City/State/[facility] Cent[facility]ode | Phone Number | | Organization | | | | + + + + + | [facility] | [address] | [place] [address] | | | DIAGNOSTIC | [address] [...] INTERPRETATION: Aspergillus galactomannan Antigen by EIA | [facility] | | | LABORATORY | [...] + + + + | [facility] | [address] | [place] [address] | | | SERVICES, SPECIAL | PARK [...]
--- OUTSIDE RECORDS SUMMARY | ~2019-05-17 | XMS | Encounter Summary ---
Demographics + + + | Address | [address] | | | [place] [address] | + + + | Home Phone [...] Team Providers + +------+ + | Care Yoker Name | Role | Phone | + [...] 2016 | erpretation | Lab at [facility] [address] | | long-term (current) | | | | [address] | | use of medications | | | | Mailcode: [id number] | | (Primary Dx) | | | | [address] | | | | | | [place], [place] | | | | | | [address] | | | | | | [phone] | | | +--------+ + + + [...] | | | | | | [place], [place] | | | | | | [address] | | | | | | [phone] | | | | | | | | +--------+---------+ + + + documented as of this encounter Procedures + +--------+ + + + | Procedure Name | Priori | Date/Time | Associated Diagnosis | Comments | | | ty | | | | + +--------+ + + + | IA DIFFUSING | Routin | 09/06/2016 | Encounter for | | | CAPACITY | e | 11:12 AM | long-term (current) | | | | | PST | use of medications | | + +--------+ + + + | IA PLETHYSMOGRAPHY | Routin | 09/06/2016 | Encounter for | | | FOR DETERM OF LUNG | e | 11:12 AM | long-term (current) | | | VOLUMES | | PST | use of medications | | + +--------+ + + + | IA SPIROMETRY TEST | Routin | 09/06/2016 | [...]
--- OUTSIDE RECORDS SUMMARY | ~2019-05-17 | XMS | Encounter Summary ---
Demographics + + + | Address | [address] | | | [place] [address] | + + + | Home Phone [...] Team Providers + +------+ + | Care Drafting Teacher Name | Role | Phone | [...] | | | [address] | | [address] [place], | | | | | INJECTION, 1 | | [place] | | | | | [place] | | [address] | | | | | CHM,IV | | Phone: | | | | | INFSN,1 HR | | [phone] | | | | | [place] CHM,IV | | Fax: | | | | | INFSN,ADDL | | [phone] | | | | | HR | [...] | | | | | | Asha [place], | | | | | | [place] [address] | | | | | | [phone] | | | +--------+ + + + [...] [address] | | | | | | [place], [place] | | | | | | [address] | | | | | | [phone] | | | | | | | [...] the | | | | PST | ([facility]) | results section. | + +--------+ + + + | TYPE AND SCREEN | Urgent | 07/30/2015 | Acute myeloid | Results for this | | | | 3:35 PM | leukemia (AML), M4 | procedure are in the | | | | PST | ([facility]) | results section. | [...] the | | | | PST | ([facility]) | results section. | + +--------+ + + + | CBC AND AUTO DIFF | Urgent | 07/30/2015 | Acute myeloid | Results for this | | | | 3:07 PM | leukemia (AML), M4 | procedure are in the | | | | PST | ([facility]) | results section. | + +--------+ + + + | MANUAL DIFFERENTIAL | Routin | 07/30/2015 | Acute myeloid | Results for this | | | e | 3:07 PM | leukemia (AML), M4 | procedure are in the | | | | PST | ([facility]) | results section. | + +--------+ + + + | CBC, WITH | Urgent | 07/30/2015 | Acute myeloid | Results for this | | DIFFERENTIAL | | 3:07 PM | leukemia (AML), M4 | procedure are in the | | | | PST | ([facility]) | results section. | + +--------+ + + + | TREATMENT PARAMETERS | Routin | 07/30/2015 | Acute myeloid | | | #2 - BEACON | e | 2:46 PM | leukemia (AML), M4 | | | | | PST | ([facility]) | | + +--------+ + + + | TREATMENT PARAMETERS | Routin | 07/30/2015 | Acute myeloid | | | #2 - BEACON | e | 2:46 PM | leukemia (AML), M4 | | | | | PST | ([facility]) | | + +--------+ + + + [...] [facility] | [address] | [place] [address] | | | SERVICES, | [address] [...] | + + + + + | [facility] | [address] | [place] [address] | | | SERVICES, | [address] [...] + + + + | PRODUCT | [id number] | | [facility] | | | UNIT [...] + + + + | EXPIRATION | [id number] | | [facility] | | | DATE [...] + + + + | BLOOD | [id number] | | [facility] | | | PRODUCT [...] | + + + + + | [facility] | [address] | [place] [address] | | | PATHOLOGY | [address] [...] [facility] | [address] | [place] [address] | | | SERVICES, CORE | [address] [...] [facility] | [address] | [place] [address] | | | SERVICES, CORE | WALLY [...]
--- OUTSIDE RECORDS SUMMARY | ~2019-05-17 | XMS | Encounter Summary ---
Demographics + + + | Address | [address] | | | [place] [address] | + + + | Home Phone [...] Providers + +------+ + | Care Ice Cream Chef Name | Role | Phone | + [...] [address] | | | | | | [place], [place] | | | | | | [address] | | | | | | [phone] | | | +--------+ + + + [...] Rd | | | | | | [place], [place] | | | | | | [address] | | | | | | [phone] | | | | | | | | +--------+---------+ + + + documented as of this encounter Visit Diagnoses Not on filedocumented in this encounter"
--- OUTSIDE RECORDS SUMMARY | ~2019-05-17 | XMS | Encounter Summary ---
Demographics + + + | Address | [address] | | | [place] [address] | + + + | Home Phone [...] Providers + +------+ + | Care Lens Engraver Name | Role | Phone | + [...] marrow transplant | | | | at [facility] 3rd Floor | | ([facility]) | | | | [address] | | | | | | [place]ally [place], | | | | | | [place] [address] | | | | | | [phone] | | | +--------+------+ + + + [...] Rd | | | | | | [place], [place] | | | | | | [address] | | | | | | [phone] | | | | | | | [...] (NA,K,CL,CO2,BUN,CRE | | PDT | transplant ([facility] [...] + + + + + | [facility] | [address] | [place] [address] | | | SERVICES, INDRA | WALLY [...] [facility] | [address] | [place] [address] | | | SERVICES, CORE | PARK [...] + + + + + | [facility] | [address] | [place] [address] | | | SERVICES, CORE | [address] [...] [facility] | [address] | [place] [address] | | | SERVICES, CORE | [address] [...] [facility] | [address] | [place] [address] | | | SERVICES, CORE | PARK [...] | + + + + + | [facility] | [address] [facility] [facility] [address] | [place] [address] | | | SERVICES, CORE | PARK [...] | + + + + + | [facility] | [address] | [place] [address] | | | INDRA SHARIF | [address] | | | + + + + + documented in this encounter Visit Diagnoses + + | Diagnosis | + + | 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
--- OUTSIDE RECORDS SUMMARY | ~2019-05-17 | XMS | Encounter Summary ---
Demographics + + + | Address | [address] | | | [place] [address] | + + + | Home Phone [...] Providers + +------+ + | Care Health Information Assistant Name | Role | Phone | [...] | | | [address] | [place], [place] | | | | | Debi Burger Mailcode: | [address] | | | | | [facility] | [phone] | | | | | [place], | | | | | | [place] [address] | | | | | | [phone] | | | +--------+ + + + [...] Rd | | | | | | [place] | | | | | | [address] | | | | | | [phone] | | | | | | | | +--------+---------+ + + + documented as of this encounter Visit Diagnoses Not on filedocumented in this encounter"
--- OUTSIDE RECORDS SUMMARY | ~2019-05-17 | XMS | Encounter Summary ---
Demographics + + + | Address | [address] | | | [place] [address] | + + + | Home Phone [...] Team Providers + +------+ + | Care Ux Information Architect Name | Role | Phone | [...] | | | | | achieved | [place], [place] | [facility] | | | | | remission | [address] | [place] | | | | | | Phone: | Pavilion | | | | | Procedures | [phone] | [place], [place] | | | | | Post BMT | Fax: | [address] | | | | | Auth to | [phone] | Phone: | | | | | included | | [phone] | | | | | facility, | | Fax: | | | | | diagnostics, | | [phone] | | | | | office | [...] 2017 | Visit | Hematologic | [address] [facility] [address] | marrow transplant | | | | Malignancies at | [place] | (HCC) (Primary Dx) | | | | [facility] | [place], [place] | | | | | [address] | [address] | | | | | [address] Mailcode: | [phone] | | | | | [facility] [place] | | | | | | Pavilion [place], | | | | | | [place] [address] | | | | | | [phone] | | | +--------+---------+ + + + [...] Donor: MMURD (DPB1 permissive antigen mismatch, male, 1129-3046-2) Identifying Data: Khurram Kelly is a 26 [...] his L ankle. He was evaluated at [facility] ED on 06/[address] angiogram negative [...] acute myelomonocytic leukemia. 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 Pt was admitted to [facility] on 05/26/15. Peripheral blood was sent [...] CD34, variable CD56, variable CD117, and dim [id number]-[id number] mickey; promonocyte immunophenotype (70% by flow): CD11b, [...] s/p 6 cyclesof azacitidine and returns to [facility] today for scheduled follow-up. Interim History: Khurram was most recently [facility] by Yari Garcia MD on 11/09/16. Returned from a long weekend in [place]. Had a good visit with friends and [...] month. Excited about his upcoming retreat in [place] from 12/15-12/17/16. He's signed up for a [...] resources that will accept his insurance in [place]. Review of Systems Constitutional: Negative for chills, [...] indicated providing peripheral counts remain stable 2. 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 He initially responded but flared during taper. He also developed low-level nausea and abd discomfort concerning for GvHD, emp irically treated with oral non-absorbables with resolution. - He had tapered prednisone to 10 mg po daily when he developed a rash for which he was see n in the ED in [place] in late 01/21. Prednisone was increased back [...] candidiasis His most recent immune reconstitution panel [facility] 08/31/16 showed normal total T [...] one patient with minimal guidance from the house worker (not t he usual house worker). He is willing to give it another [...] establishing care here then moving back to [place]. States he is planning to come to [...] , 12/07/16, sooner prn --> labs at [facility] prior [facility] AT V [address] [facility] Mailcode: [place] [id number] documented in this enc ounter Plan of [...] | 2018 | Visit | Malignancy | [address] [place] [address] | | | | | | [facility] | | | | | | [place], [place] | | | | | | [address] | | | | | | [phone] | | | | | | | | +--------+---------+ + + + documented as of this encounter Visit Diagnoses + + | Diagnosis | + + | 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
--- OUTSIDE RECORDS SUMMARY | ~2019-05-17 | XMS | Encounter Summary ---
Demographics + + + | Address | [address] | | | [place] [address] | + + + | Home Phone [...] Team Providers + +------+ + | Care Beater Dumper Name | Role | Phone | [...] | | | | | achieved | [place], [place] | [facility] | | | | | remission | [address] | [facility] | | | | | | Phone: | Pavilion | | | | | Procedures | [phone] | [place], [place] | | | | | Post BMT | Fax: | [address] | | | | | Auth to | [phone] | Phone: | | | | | included | | [phone] | | | | | facility, | | Fax: | | | | | diagnostics, | | [phone] | | | | | office | [...] 2017 | Visit | Hematologic | [address] [facility] | marrow transplant | | | | Malignancies at | [place] | (HCC) (Primary Dx) | | | | [facility] | [place], [place] | | | | | [address] | [address] | | | | | [place] Mailcode: | [phone] | | | | | [facility] | | | | | | Pavilion [place], | | | | | | [place] [address] | | | | | | [phone] | | | +--------+---------+ + + + [...] MM URD (DPB1 permissive antigen mismatch, male, 0237-6678-2) Identifying Data: Khurram Kelly is a 26 [...] ankle. He was evaluated at [facility] ED on 06/[address] angiogram [...] CD34, variable CD56, variable CD117, and dim [id number] mickey; promonocyte immunophenotype (70% by flow): CD11b, [...] indicated providing peripheral counts remain stable 2. 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 He initial ly responded but flared during taper. He also developed low-level nausea and abd discomfort concerning for GvHD, empirically treated with oral non-absorbables with resolution. He had t apered prednisone to 10 mg po daily when he developed a rash for which he was seen in the ED in [place] in late 01/21. Prednisone was increased back [...] 73 FEV1/FVC PRE (%REF) % 94 88 SUS74-40% PRE 5.09 L/sec 4.64 4.12 OZG63-63% PRE (%REF) % 91 79 PEF PRE [...] , 10/12/16, sooner prn --> labs at [facility] prior [facility] AT [facility] [address] [facility] Mailcode: [id number] [address] documented in this enc ounter Plan of [...] Rd | | | | | | [place], [place] | | | | | | [address] | | | | | | [phone] | | | | | | | [...] [facility] | [address] | [place] [address] | | | SERVICES, CORE | PARK [...] [facility] | [address] | [place] [address] | | | SERVICES, CORE | PARK [...] [facility] | [address] | [place] [address] | | | SERVICES, CORE | PARK [...] [facility] | [address] | [place] [address] | | | SERVICES, CORE | WALLY [...] CENTER LABORATORY | [address] | [place] [address] | | | SERVICES, CORE | PARK [...] | | | LABORATORY | | | [place] | | | SERVICES, | | | [...] [facility] | [address] | [place] [address] | | | INDRA SHARIF | [address] | | | + + + + + documented in this encounter Visit Diagnoses + + | Diagnosis | + + | 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HCC) - Primary Bone marrow replaced by | | transplant | + + documented in this encounter
--- OUTSIDE RECORDS SUMMARY | ~2019-05-17 | XMS | Encounter Summary ---
Demographics + + + | Address | [address] | | | [place] [address] | + + + | Home Phone [...] Team Providers + +------+ + | Care Capacitor Tester Name | Role | Phone | [...] Pharmacy | | | | | | [address] | | | | | | [place], | | | | | | [place] [address] | | | +--------+ + + + [...] 2018 | Visit | Malignancy | [address] [facility] | | | | | | [address] | | | | | | [place], [place] | | | | | | [address] | | | | | | [phone] | | | | | | | | +--------+---------+ + + + documented as of this encounter Visit Diagnoses Not on filedocumented in this encounter"
--- OUTSIDE RECORDS SUMMARY | ~2019-05-17 | XMS | Encounter Summary ---
Demographics + + + | Address | [address] | | | [place] [address] | + + + | Home Phone [...] Providers + +------+ + | Care Veneer Sample Maker Name | Role | Phone | [...] 2017 | | Hematologic | [address] [facility] | vomiting; | | | | Malignancies at | [address] | Lightheaded (occ) | | | | [facility] | [place], [place] | | | | | [address] [facility] | [address] | | | | | Debi Mailcode: | [phone] | | | | | [facility] | | | | | | Pavilion [place], | | | | | | [place] [address] | | | | | | [phone] | | | +--------+ + + + [...] Rd | | | | | | [place], [place] | | | | | | [address] | | | | | | [phone] | | | | | | | | +--------+---------+ + + + documented as of this encounter Visit Diagnoses Not on filedocumented in this encounter"
--- OUTSIDE RECORDS SUMMARY | ~2019-05-17 | XMS | Encounter Summary ---
Demographics + + + | Address | [address] | | | [place] [address] | + + + | Home Phone [...] Team Providers + +------+ + | Care Pharmacy Operations Coordinator Name | Role | Phone | + +------+ + | Zayda Hinton | PCP | | + +------+ + Encounter Details +--------+ + + + + | Date | Type | Department | Care Team | Description | +--------+ + + + + | 03/30/ | Pharmacy | Specialty Pharmacy | | | | 2015 | Visit | Services [address] | | | | | | [address] | | | | | | [place], [place] | | | | | | [address] | | | | | | [phone] | | | +--------+ + + + [...] 2019 | Visit | Malignancy | [address] [facility] | | | | | | [address] | | | | | | [place], [place] | | | | | | [address] | | | | | | [phone] | | | | | | | | +--------+---------+ + + + documented as of this encounter Visit Diagnoses Not on filedocumented in this encounter"
--- OUTSIDE RECORDS SUMMARY | ~2019-05-17 | XMS | Encounter Summary ---
Demographics + + + | Address | [address] | | | [place] [address] | + + + | Home Phone [...] Team Providers + +------+ + | Care Minesweeping Officer Name | Role | Phone | + +------+ + | Zayda Hinton | PCP | | + +------+ + Encounter Details +--------+ + + + + | Date | Type | Department | Care Team | Description | +--------+ + + + + | 08/09/ | Pharmacy | Specialty Pharmacy | | | | 2015 | Visit | Services [address] | | | | | | [address] | | | | | | [place], [place] | | | | | | [address] | | | | | | [phone] | | | +--------+ + + + [...] [place] | | | | | | [address] | | | | | | [phone] | | | | | | | | +--------+---------+ + + + documented as of this encounter Visit Diagnoses Not on filedocumented in this encounter"
--- OUTSIDE RECORDS SUMMARY | ~2019-05-17 | XMS | Encounter Summary ---
Demographics + + + | Address | [address] | | | [place] [address] | + + + | Home Phone [...] Team Providers + +------+ + | Care Hotel Superintendent Name | Role | Phone | [...] Pharmacy | | | | | | [address] | | | | | | [place], | | | | | | [place] [address] | | | +--------+ + + + [...] 2018 | Visit | Malignancy | [address] [facility] | | | | | | [address] | | | | | | [place], [place] | | | | | | [address] | | | | | | [phone] | | | | | | | | +--------+---------+ + + + documented as of this encounter Visit Diagnoses Not on filedocumented in this encounter"
--- OUTSIDE RECORDS SUMMARY | ~2019-05-17 | XMS | Encounter Summary ---
Demographics + + + | Address | [address] | | | [place] [address] | + + + | Home Phone [...] Providers + +------+ + | Care General Practitioner Name | Role | Phone | + [...] | | | 2017 | Event | [facility] | MD [address] [facility] | | | | | Admitting Desk | [address] | | | | | Located on the | [place], [place] | | | | | [facility] [address] [facility] | [address] | | | | | [address] | [phone] | | | | | [place], [place] | | | | | | [address] | | | +--------+ + + + [...] Rd | | | | | | [place], [place] | | | | | | [address] | | | | | | [phone] | | | | | | | [...] , Attending: DAVIDE | | | WILBER Rcie, Performed by Resident HIMANSHU RUFF 1st several [...] | | | | | dose, Starting [facility] 09/07/16 at | | | | [...]
--- OUTSIDE RECORDS SUMMARY | ~2019-05-17 | XMS | Encounter Summary ---
Demographics + + + | Address | [address] | | | [place] [address] | + + + | Home Phone [...] Providers + +------+ + | Care Chain Sales Consultant Name | Role | Phone [...] | | | | | remission | [address] | [facility] | | | | | Procedures | Phone: | [place] | | | | | [place] | [phone] | Pavilion | | | | | AZACITIDINE | Fax: | [place], [place] | | | | | INJECTION, 1 | [phone] | [address] | | | | | MG PA | | Phone: | | | | | CHM,IV | | [phone] | | | | | INFSN,1 HR | | Fax: | | | | | PA CHM,IV | | [phone] | | | | | INFSN,ADDL | [...] | | | | | | [facility] [place] | | | | | | [place], | | | | | | [place] [address] | | | | | | [phone] | | | +--------+ + + + [...] feeling well. He recently went home to [facility] to visit family and played golf [...] Rd | | | | | | [place], [place] | | | | | | [address] | | | | | | [phone] | | | | | | | [...] | BEACON | | PDT | transplant ([facility]) | | | | | [...] PDT | transplant ([facility]) | | | | | | Acute myeloid | | | | | | leukemia (AML), M4 | | | | | | ([facility])- primary | | | | | | induction failure | | + +--------+ + + + documented in this encounter Visit Diagnoses + + | Diagnosis | + + | 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[facility]) - Primary Bone marrow replaced by | [...]
--- OUTSIDE RECORDS SUMMARY | ~2019-05-17 | XMS | Encounter Summary ---
Demographics + + + | Address | [address] | | | [place] [address] | + + + | Home Phone [...] Providers + +------+ + | Care Professional Security Officer Name | Role | Phone | [...] [place] | | | | | [place], [place] | [address] | | | | | [address] | [place], [place] | | | | | | [address] | | | | | | [phone] | | | | | | | [...] Rd | | | | | | [place], [place] | | | | | | [address] | | | | | | [phone] | | | | | | | | +--------+---------+ + + + documented as of this encounter Visit Diagnoses Not on filedocumented in this encounter"
--- OUTSIDE RECORDS SUMMARY | ~2019-05-17 | XMS | Encounter Summary ---
Demographics + + + | Address | [address] | | | [place] [address] | + + + | Home Phone [...] Team Providers + +------+ + | Care Complaint Inspector Name | Role | Phone | [...] [address] | | | | | [address] | [place], [place] | | | | | [address] [facility] | [address] | | | | | [facility] Mailcode: | [phone] | | | | | [facility] [place] | | | | | | [facility] [place], | | | | | | [place] [address] | | | | | | [phone] | | | +--------+ + + + [...] Rd | | | | | | [place] | | | | | | [address] | | | | | | [phone] | | | | | | | | +--------+---------+ + + + documented as of this encounter Visit Diagnoses Not on filedocumented in this encounter"
--- OUTSIDE RECORDS SUMMARY | ~2019-05-17 | XMS | Encounter Summary ---
Demographics + + + | Address | [address] | | | [place] [address] | + + + | Home Phone [...] Team Providers + +------+ + | Care Compressed Gas Plant Worker Name | Role | Phone | [...] | | | | | | [place], | | | | | | | [place] | | | | | | | [address] | | | | | | | Phone: | | | | | | | [phone] | | | | | | | Fax: | | | | | | | [phone] | +--------+--------+ + + + + Encounter [...] (HCC) (Primary Dx) | | | | [address] | [place], [place] | | | | | [address] | [address] | | | | | [address] Mailcode: | [phone] | | | | | [facility] [place] | | | | | | [place], | | | | | | [place] [address] | | | | | | [phone] | | | +--------+---------+ + + + [...] MM URD (DPB1 permissive antigen mismatch, male, 4323-5394-2) Identifying Data: Khurram Kelly is a 25 [...] his L ankle. He was evaluated at [place]' ED on 06/[address] angiogram negative [...] CD34, variable CD56, variable CD117, and dim ST300-geltt mickey; promonocyte immunophenotype (70% by flow): CD11b, [...] active at home. Planning to travel to [facility] for Thanksgiving. Rash resolv ed, no c/o [...] one year anniversary, sooner p rn 2. Tpwiz-oh-Vipr Disease: Skin bx due to mild rash [...] he was seen in the ED in [place] in late 01/21. Prednisone was increased back [...] [facility] AT [address] Mailcode: [facility] [phone] documented in this enc ounter Plan of [...] [place] | | | | | | [address] | | | | | | [phone] | | | | | | | [...] | | | | | CD4, CD8, OE2yzjl,CD19, | | | | | | CD25, [...] 55-85% | | | | | | 700-6519CG8+ CD4+ | | | | | | 27.7 | | | | | | 348 28-57% | | | | | | 300-5641IB1+ CD8+ | | | | | | [...] | | | | | | | %LymphsCD3+CD4+TI4zvup | | | | | | + 0.6 | | | | | | | | | | | | <1.5%CD3+HLA-DR+ | | | | | | 2.3 | | | | | | | | | | | | <10%CD4+CD25+ | | | | | | 3.4 | | | | | | | | | | | | <7%BC2uxxk+CD69+ | | | | | | 1.1 [...] | + + + + + | [facility] | [address] | [place] [address] | | | PATHOLOGY | [address] | | | + + + + + documented in this encounter Visit Diagnoses + + | Diagnosis | + + | 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
--- OUTSIDE RECORDS SUMMARY | ~2019-05-17 | XMS | Encounter Summary ---
Demographics + + + | Address | [address] | | | [place] [address] | + + + | Home Phone [...] Providers + +------+ + | Care Stone Spreader Operator Name | Role | Phone | + +------+ + | Zayda Hinton | PCP | | + +------+ + Encounter Details +--------+ + + + + | Date | Type | Department | Care Team | Description | +--------+ + + + + | 02/06/ | Pharmacy | Specialty Pharmacy | | | | 2015 | Visit | Services [address] | | | | | | [address] | | | | | | [place], [place] | | | | | | [address] | | | | | | [phone] | | | +--------+ + + + [...] Rd | | | | | | [place], [place] | | | | | | [address] | | | | | | [phone] | | | | | | | | +--------+---------+ + + + documented as of this encounter Visit Diagnoses Not on filedocumented in this encounter"
--- OUTSIDE RECORDS SUMMARY | ~2019-05-17 | XMS | Encounter Summary ---
Demographics + + + | Address | [address] | | | [place] [address] | + + + | Home Phone [...] Providers + +------+ + | Care Public Administration Professor Name | Role | Phone | + +------+ + | Zayda Hinton | PCP | | + +------+ + Reason for Visit + + + | Reason | Comments | + + + | Lab Draw | pt had labs drawn in [facility] 2 days ago (05/06) pt [...] | | [address] | [place], [place] | care 2 days ago | | | | Mailcode: Ralph | [address] | (05/06) pt was | | | | for Health and | [phone] | curious if labs were | | | | Healing, [facility] 2 | | sent to Dr Garcia, | | | | [place], [place] | | and if pt can get a | | | | [address] | | call from Dr Garcia or | | | | [phone] | | Cummins about | | | [...] 2019 | Visit | Malignancy | [address] [facility] | | | | | | [address] | | | | | | [place], [place] | | | | | | [address] | | | | | | [phone] | | | | | | | | +--------+---------+ + + + documented as of this encounter Visit Diagnoses Not on filedocumented in this encounter"
--- OUTSIDE RECORDS SUMMARY | ~2019-05-17 | XMS | Encounter Summary ---
Demographics + + + | Address | [address] | | | [place] [address] | + + + | Home Phone [...] Providers + +------+ + | Care Pony Rougher Name | Role | Phone | + [...] | | | | | remission | [address] | [place] | | | | | | Phone: | Pavilion | | | | | Procedures | [phone] | [place], [place] | | | | | Post BMT | Fax: | [address] | | | | | Auth to | [phone] | Phone: | | | | | included | | [phone] | | | | | facility, | | Fax: | | | | | diagnostics, | | [phone] | | | | | office | [...] | | | | | | [place], | | | | | | [place] [address] | | | | | | [phone] | | | +--------+ + + + [...] He is aware that he should call hydramatic mechanic/electrical controls engineer prov ider for any complaints. Post Infusion [...] Rd | | | | | | [place], [place] | | | | | | [address] | | | | | | [phone] | | | | | | | [...] | | | | PDT | ([facility])- primary | [...] | | | | PDT | ([facility])- primary | [...] | | | | PDT | ([facility])- primary | [...] | | | | PDT | ([facility])- primary | [...] | BEACON | | PDT | ([facility])- primary | | | | | | induction failure | | + +--------+ + + + | NURSING | Routin | 10/21/2015 | Acute myeloid | | | COMMUNICATION #1 - | e | 10:28 AM | leukemia (AML), M4 | | | BEACON | | PDT | ([facility])- primary | | | | | | induction failure | | + +--------+ + + + | TREATMENT PARAMETERS | Routin | 10/21/2015 | Acute myeloid | | | #1 - BEACON | e | 10:28 AM | leukemia (AML), M4 | | | | | PDT | ([facility])- primary | [...] SORTO | [address] | [place], [place] | | | RUTHIE CARTER OF CARE | [address] | [address] | | | TESTS | | | [...] MAC[place]IO | [address] | [place], [place] | | | RUTHIE CARTER OF CARE | [address] | [address] | | | TESTS | | | [...] + + | [facility] | [address] | [place] [address] | | | SERVICES, SPECIAL | [address] [...] [facility] | [address] | [place] [address] | | | SERVICES, CORE | WALLY [...] [facility] | [address] | [place] [address] | | | SERVICES, CORE | WALLY [...]
--- OUTSIDE RECORDS SUMMARY | ~2019-05-17 | XMS | Encounter Summary ---
Demographics + + + | Address | [address] | | | [place] [address] | + + + | Home Phone [...] Providers + +------+ + | Care Mobile Qa Tester Name | Role | Phone | [...] | | | | | | | [address] | | | | | | | [address] | | | | | | | [place], | | | | | | | [place] | | | | | | | [address] | | | | | | | Phone: | | | | | | | [phone] | | | | | | | Fax: | | | | | | | [phone] | +--------+--------+ + + + + Encounter [...] MPV | | | | | | [address] | | | | | | [place] Mailcode: | | | | | | [facility] [place] | | | | | | [place], | | | | | | [place] [address] | | | | | | [phone] | | | +--------+ + + + [...] 2019 | Visit | Malignancy | [address] [facility] | | | | | | [address] | | | | | | [place], [place] | | | | | | [address] | | | | | | [phone] | | | | | | | [...] - MAC[place]IO | [address] | [place], [place] | | | RUTHIE CARTER OF CARE | [facility] | [address] | | | TESTS | | | [facility] | [address] | [place] [address] | | | SERVICES, CORE | WALLY [...] [facility] | [address] | [place] [address] | | | SERVICES, CORE | [address]ARK [...] | | | LABORATORY | | | [place] | | | SERVICES, | | | [...] + | [facility] | [address] [facility] [facility] | [place] [address] | | | SERVICES, CORE | WALLY [...] 2 fold may not reflect true | [facility] | | biological changes [...] + | Performing | Address | City/State/[facility] | Phone Number | | Organization | | | | + + + + + | [facility] | [address] | [place] [address] | | | DIAGNOSTIC | [address] [...] + | [facility] | [address] [facility] [facility] [address] | [place] [address] | | | SERVICES, CORE | WALLY [...] + | [facility] - | [address] | [place] [address] | | | [place] | | | [...]
--- OUTSIDE RECORDS SUMMARY | ~2019-05-17 | XMS | Encounter Summary ---
Demographics + + + | Address | [address] | | | [place] [address] | + + + | Home Phone [...] Team Providers + +------+ + | Care Tire Recapper Name | Role | Phone | + [...] + + | 09/07/ | Hospital | [facility] [address] | Lobo Jeffers, | | | 2017 - | Encounter | [address] | [address] [facility] | | | | | Josie [place] | [address] | | | 09/08/ | | [place], [place] | [place], [place] | | | 2017 | | [address] | [address] | | | | | [phone] | | | | | | | [...] NP - 09/08/2016 12:15 PM PST [facility] [place] [facility] DEPARTMENT OF ORTHOPAEDICS & REHABILITATION INPATIENT HOSPITAL DISCHARGE SUMMARY & INTERDISCIPLINARY INSTRUCTIONS Patient: Khurram Kelly [facility]: [id number] Admission Date: 09/07/2016 Discharge Date: 09/08/2016 Attending Physician: Lobo Jeffers MD PCP: No Pcp Per PATIENT Service: [facility] Orthopaedics & Rehabilitation Diagnoses Principal Final Diagnosis: 1.Avascular necrosis, left femoral head. Additional Diagnoses: History of : Acute myeloid leukemia (AML), M4 (HCC)- primary induction failure [facility] RESEARCH PROTOCOL PATIENT (RESPRO) Electrolyte abnormality [...] daily with [facility]. [facility] the patient tolerated oral intake sufficient to maintain nutrition and hydrati on. The surgical wound remained clean, dry, and intact without signs concerning for infectio n. The patient was felt appropriate for discharge to home, and the patient and/or family nh mbers agree with this course of action. [...] they suspect your wound is infected. Call [facility] Orthopedics first at [phone]. Activity Weight bear as tolerated on both lower extremities. Restrictions: Posterior hip precautions on operative side (no hip flexion >90 degrees, no c rossing your legs, no turning your foot towards the middle of the body (internal rotation). Destination: Destination: Home Condition on Discharge Stable Follow-Up Appointments ORTHOPEDICS OUTPATIENT CLINIC: Future Appointments Provider Department Dept Phone Center 09/11/2016 8:30 AM [facility] Center for Hematologic Malignancies at [facility] [phone] Center for H 09/11/2016 9:25 AM Yari Garcia; [facility] SUPPORT Center for Hematologic Malignancies at [facility] [phone] Center for H 09/20/2016 10:45 AM Janette Das Orthopaedics at [facility] [phone] Orthopedics 10/18/2016 10:20 AM Lobo Jeffers Orthopaedics at [facility] [phone] Orthopedics Follow up in 2 weeks (or as previously scheduled). Call [phone] to confirm or schedule this appointment. PCP: [...] mg oral tablet Comments: Reason for Stopping: [facility] Orthopaedic Service Pain Policy At the [...] administration instructions. - Call Orthopedic Clinic at [phone] if any persistent, localized swelling that does [...] and ask for the orthopaedic surgery resident agricultural education instructor. Additional Post-Op Instructions / What to Expect [...] feel that you will need more, call [phone] during business hours in order to get [...] take care of Khurram Kelly [facility], it has been our pleasure. Latonya Paul NP [facility] Department of Orthopaedics & Rehabilitation [address] [place] [address] Mail Code: OP31 [facility] [phone] documented in this enc ounter Progress Notes Kanchan Luis MD - 09/08/2016 10:14 AM PSTFormatting of this note might be different fr om the original. [facility] DEPARTMENT OF ORTHOPAEDICS & REHABILITATION [...] Today Kanchan Luis MD 09/08/2016 [facility] Department of Orthopaedics & Rehabilitation [address] [place] [address] Mail Code: OP31 [facility] [id number] Kanchan Amado MD - 09/07/2016 10:[address] [facility] DEPARTMENT OF ORTHOPAEDICS & REHABILITATION [...] Postop xray reviewed Kanchan Luis MD 09/07/2016 On License Of [facility] Department of Orthopaedics & Rehabilitation [address] [place] [address] Mail Code: OP31 [facility] [id number] [email or web address] Pager: [phone] documented in this e ncounter Plan of [...] Rd | | | | | | [place], [place] | | | | | | [address] | | | | | | [phone] | | | | | | | [...] | | POC | | PST | ([facility]) | [...] | | | LABORATORY | | | [place]ET[place]ESE | | | SERVICES, | | | [...] | + + + + + | [facility] | [address] [facility] [facility] [address] | [place] [address] | | | SERVICES, CORE | [address] | | | + + + + + OPERATION RECORD (09/08/2016 9:12 AM PST) + + | Procedure Note | + + | Lobo Jeffers MD - 09/07/2016 10:29 AM PST Date of Service: 09/07/2016 | | Attending Surgeon:Lobo Jeffers MD Detailer Furniture(s):Janette Begum | | SIDNEY Das, Orthopedic PA. Janette was used as the training assistant, as there were no | | [...] capsule was repaired with 0 Vicryl in zvbkog-ot-voypd | | fashion. The gluteal fibers and the IT band were repaired with 0 Vicryl in | | agmdtt-sb-jxfwh fashion. The subcutaneous tissue was repaired with [...] | | 09/07/2016 09:13:48DT: 09/07/2016 10:29:24Job #: [id number] | |Postoperative Plan: The patient can be weightbearing as tolerated. Posterior hip precauti ons and discharged when stable. | | | | | | | |Lobo Jeffers MD | |BRENDA/RADHAL | | | | | | /[id number] | + + CBC (HEMOGRAM) ONLY (09/08/2016 [...] HOSPITAL LABORATORY | [address] | [place] [address] | | | SERVICES, INDRA | [address] [...] [facility] | [address] | [place], [place] | | | [facility] POINT OF CARE | [address] | [address] | | | TESTS | | | [...] SORTO | [address] | [place], [place] | | | RUTHIE CARTER OF KRISTA | [address] | [address] | | | TESTS | | | | + + + + + PROCEDURE NOTE (09/07/2016 9:08 AM PST) + + + | Narrative | Performed At | + + + | Lobo Jeffers MD 09/07/2016 9:08 AM Brief Operative Note | | | Preop diagnosis:avascular necrosis left hip Postop | | | diagnosis:same Procedure:left total hip arthropasty Surgeon: | | | Zeyad Detailer Furniture:Audrey Beckett Estimated Blood Loss:200 | | | [...] SORTO | [address] | [place], [place] | | | RUTHIE CARTER OF KRISTA | [address] | [address] | | | TESTS | | | [...] MRN | | | | | | [id number] and | | | | | | [...] identified. | | | | | | Electronic Imager sections | | | | | | are | | | | | | submitted,decalcificatio | | | | | | n by hydrochloric acid. | | | | | | Cassette Index:A1: | | | | | | articular surfaceA2: | | | | | | sales representative marine supplies margin | | | | | | [...] + + + + | [facility] | [address] | [place] [address] | | | PATHOLOGY | [address] [...] 17 11:16 | | | | | [facility] 09/07/16 at 1200, Until | | AM [...] | | | | | CONTINUOUS, Starting [facility] 09/07/16 | | AM PST | | [...] | | | | | dose, Starting [facility] 09/07/16 at | | AM PST | [...] | | | | | NEEDED, Starting [facility] 09/07/16 at | | PM PST | [...] | | | intravenous, ONCE, 1 dose, [facility] | | 17 1:06 | | | [...]
--- OUTSIDE RECORDS SUMMARY | ~2019-05-17 | XMS | Encounter Summary ---
Demographics + + + | Address | [address] | | | [place] [address] | + + + | Home Phone [...] Providers + +------+ + | Care Emergency Nurse Name | Role | Phone | [...] | | | | | | [place], | | | | | | [place] [address] | | | | | | [phone] | | | +--------+ + + + [...] [place] | | | | | | [address] | | | | | | [phone] | | | | | | | | +--------+---------+ + + + documented as of this encounter Visit Diagnoses Not on filedocumented in this encounter"
--- OUTSIDE RECORDS SUMMARY | ~2019-05-17 | XMS | Encounter Summary ---
Demographics + + + | Address | [address] | | | [place] [address] | + + + | Home Phone [...] Team Providers + +------+ + | Care Airplane Rental Clerk Name | Role | Phone | [...] | | | | | remission | [address] | [place] | | | | | | Phone: | Pavilion | | | | | Procedures | [phone] | [place], [place] | | | | | Post BMT | Fax: | [address] | | | | | Auth to | [phone] | Phone: | | | | | included | | [phone] | | | | | facility, | | Fax: | | | | | diagnostics, | | [phone] | | | | | office | [...] | | | Staff | Malignancies at [facility] | | | | | | [address] | | | | | | Wally Burger Mailcode: | | | | | | [address] [place] | | | | | | Asha [place], | | | | | | [place] [address] | | | | | | [phone] | | | +--------+ + + + [...] at least 2 L oral fluids at [facility] e. Pt already took TAC at home [...] 2018 | Visit | Malignancy | [address] [facility] | | | | | | [address] | | | | | | [place], [place] | | | | | | [address] | | | | | | [phone] | | | | | | | [...] | | PDT | ([facility])- primary | results section. | | | [...] | | PDT | ([facility])- primary | results section. | | | [...] | | PDT | ([facility])- primary | results section. | | | [...] | TOTAL,BILI | | PDT | ([facility])- primary | results section. | | DIRECT,ALK [...] | | PDT | ([facility])- primary | results section. | | | [...] ANTIGEN, SERUM | | PDT | ([facility])- primary | results section. | | | [...] 188 | 0 - 206 U/L | [facility] | | | | | | [place] | | | | | | [facility] | | | | | | OF CARE | | | | | | TESTS | | + +---------+ + + + | MAGNESIUM, | 1.8 | 1.8 - 2.5 mg/dL | [facility] [...] [place] | [address] | [place], [place] | | | RUTHIE CARTER OF CARE | [facility] | [address] | | | TESTS | | | [...] SORTO | [address] | [place], [place] | | | RUTHIE CARTER OF KRISTA | [address] | [address] | | | TESTS | | | [...] fold may not reflect true | [facility] | | biological changes and must [...] | | | characteristics determined by the [facility] | | | Molecular Diagnostic Center. It has not been cleared or approved by | | | the Food and Drug Administration. FDA approval is not required for | | | clinical use of this test, and therefore validation was done as | | | required under the requirements of the Clinical Laboratory Improvement | | | Act of 1988. The [facility] Molecular | | | Diagnostic Center is a fully licensed and/or accredited clinical | | | laboratory under CLIA, CAP, and the [facility]. | | + + + + + + + + | Performing | Address | City/State/Zipcode | Phone Number | | Organization | | | | + + + + + | [facility] | [address] | [place] [address] | | | DIAGNOSTIC | [address] [...] + | [facility] | [address] | [place] [address] | | | SPECIAL KOLE | WALLY [...] [facility] | [address] | [place] [address] | | | SERVICES, CORE | PARK [...] YESSICA LOZA | [address] | [place] [address] | | | SERVICES, CORE | WALLY [...]
--- OUTSIDE RECORDS SUMMARY | ~2019-05-17 | XMS | Encounter Summary ---
Demographics + + + | Address | [address] | | | [place] [address] | + + + | Home Phone [...] Team Providers + +------+ + | Care Bread Stacker Name | Role | Phone | + [...] Carrera | | | | | | [place], [place] | | | | | | [address] | | | | | | [phone] | | | +--------+ + + + [...] [place] | | | | | | [address] | | | | | | [phone] | | | | | | | | +--------+---------+ + + + documented as of this encounter Visit Diagnoses Not on filedocumented in this encounter"
--- OUTSIDE RECORDS SUMMARY | ~2019-05-17 | XMS | Encounter Summary ---
Demographics + + + | Address | [address] | | | [place] [address] | + + + | Home Phone [...] Providers + +------+ + | Care Metal Sprayer Protective Coating Name | Role | Phone | + [...] | | Hematologic | PA-C [address] [facility] | management (No | | | | Malignancies at [facility] | [address] | change to TAC dose) | | | | [address] | [place], [place] | | | | | Debi Burger Mailcode: | [address] | | | | | [address] [place] | [phone] | | | | | Asha [place], | | | | | | [place] [address] | | | | | | [phone] | | | +--------+ + + + [...] [place] | | | | | | [address] | | | | | | [phone] | | | | | | | | +--------+---------+ + + + documented as of this encounter Visit Diagnoses Not on filedocumented in this encounter"
--- OUTSIDE RECORDS SUMMARY | ~2019-05-17 | XMS | Encounter Summary ---
Demographics + + + | Address | [address] | | | [place] [address] | + + + | Home Phone [...] Team Providers + +------+ + | Care Resident Assistant Name | Role | Phone | [...] | | | | | remission | [address] | [place] | | | | | | Phone: | Pavilion | | | | | Procedures | [phone] | [place], [place] | | | | | Post BMT | Fax: | [address] | | | | | Auth to | [phone] | Phone: | | | | | included | | [phone] | | | | | facility, | | Fax: | | | | | diagnostics, | | [phone] | | | | | office | [...] | Visit | Hematologic | PA-C [address] [facility] | leukemia (AML), M4 | | | | Malignancies at | [address] | ([facility])- primary | | | | [place] [facility] | [place], [place] | induction failure | | | | [address] [facility] | [address] | (Primary Dx); S/P | | | | Debi Burger Mailcode: | 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 He was evaluated at [facility] ED on 06/[address] [...] CD34, variable CD56, variable CD117, and dim RC111-nueni mickey; promonocyte immunophenotype (70% by flow): CD11b, [...] is doing well today. He reports his benjamin h is improving, but remains itchy in [...] eruption of lymphocyte recovery and early mild zzzqg-nskwrb-rhqb disease. 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 It has not been cleared or approved by | | | the Food and Drug Administration. FDA approval is not required for | | | clinical use of this test, and therefore validation was done as | | | required under the requirements of the Clinical Laboratory Improvement | | | Act of 1988. The [facility] | | | Diagnostic Center is a fully licensed and/or accredited clinical | | | laboratory under CLIA, CAP, and the [facility]. | | + + + + + + + + | Performing | Address | City/State/Zipcode | Phone Number | | Organization | | | | + + + + + | [facility] | [address] | [place] [address] | | | DIAGNOSTIC | [address] [...] Aspergillus galactomannan Antigen by EIA | [facility] | | | LABORATORY | | This [...] | + + + + + | [facility] | [address] | [place] [address] | | | SERVICES, SPECIAL | PARK [...]
--- OUTSIDE RECORDS SUMMARY | ~2019-05-17 | XMS | Encounter Summary ---
Demographics + + + | Address | [address] | | | [place] [address] | + + + | Home Phone [...] Providers + +------+ + | Care Production Service Manager Name | Role | Phone | + +------+ + | Pending Pcp Addition | PCP | Unavailable | + +------+ + Encounter Details +--------+ + + + + | Date | Type | Department | Care Team | Description | +--------+ + + + + | 08/17/ | Train Examiner | Center for | Yari Garcia MD | | | 2016 | | Hematologic | [address] | | | | | Malignancies at | [address] | | | | | Christian [place] | [place], [place] | | | | | [address] | [address] | | | | | Debi Burger Mailcode: | [phone] | | | | | [address] [place] | | | | | | [place], | | | | | | [place] [address] | | | | | | [phone] | | | +--------+ + + + [...] Rd | | | | | | [place], [place] | | | | | | [address] | | | | | | [phone] | | | | | | | | +--------+---------+ + + + documented as of this encounter Visit Diagnoses Not on filedocumented in this encounter"
--- OUTSIDE RECORDS SUMMARY | ~2019-05-17 | XMS | Encounter Summary ---
Demographics + + + | Address | [address] | | | [place] [address] | + + + | Home Phone [...] + +------+ + | Care Director Of Curriculum Name | Role | Phone | + +------+ + | Pending Pcp Addition | PCP | Unavailable | + +------+ + Encounter Details +--------+ + + + + | Date | Type | Department | Care Team | Description | +--------+ + + + + | 12/01/ | Telephone | Center for | Yari Garcia MD | | | 2016 | | Hematologic | [address] | | | | | Malignancies at [facility] | [address] | | | | | [address] | [place], [place] | | | | | Debi Burger Mailcode: | [address] | | | | | [address] [place] | [phone] | | | | | [place], | | | | | | [place] [address] | | | | | | [phone] | | | +--------+ + + + [...] Rd | | | | | | [place], [place] | | | | | | [address] | | | | | | [phone] | | | | | | | | +--------+---------+ + + + documented as of this encounter Visit Diagnoses Not on filedocumented in this encounter"
--- OUTSIDE RECORDS SUMMARY | ~2019-05-17 | XMS | Encounter Summary ---
Demographics + + + | Address | [address] | | | [place] [address] | + + + | Home Phone [...] Team Providers + +------+ + | Care Executive Director Of Nursing Name | Role | Phone | + [...] | | | | | | Tao [place], | | | | | | | [place] | | | | | | | [address] | | | | | | | Phone: | | | | | | | [phone] | | | | | | | Fax: | | | | | | | [phone] | +--------+--------+ + + + + Encounter [...] | | | | | | [address] [place] | | | | | | Pav[place]e [place], | | | | | | [place] [address] | | | | | | [phone] | | | +--------+ + + + [...] ambulation and DC home with family - Operator Cavity Pump. Seble Godoy RN - 6:45 PM PST [...] Rd | | | | | | [place], [place] | | | | | | [address] | | | | | | [phone] | | | | | | | [...] | | LEUKOREDUCED | | PST | ([facility] [...] | | LEUKOREDUCED | | PST | ([facility] [...] | | | | | PST | ([facility]) | | + +--------+ + + [...] | | | | | PST | ([facility]) | | + +--------+ + + + | NURSING | Routin | 08/17/2015 | Acute myeloid | | | COMMUNICATION #3 - | e | 3:16 PM | leukemia (AML), M4 | | | [facility] | | PST | ([facility]) | | + +--------+ + + + | NURSING | Routin | 08/17/2015 | Acute myeloid | | | COMMUNICATION #2 - | e | 3:16 PM | leukemia (AML), M4 | | | [facility] | | PST | ([facility]) | | + +--------+ + + + | NURSING | Routin | 08/17/2015 | Acute myeloid | | | COMMUNICATION #1 - | e | 3:16 PM | leukemia (AML), M4 | | | [facility] | | PST | ([facility]) | | + +--------+ + + [...] [facility] | [address] | [place] [address] | | | SERVICES, CORE | PARK [...] + + + | YESSICA SORTO | [address] | [place], [place] | | | EMMA LAWLER OF [facility] | [address] | [address] | | | TESTS | | | [...] + + + + | PRODUCT | [id number] | | [facility] | | | UNIT [...] + + + + | EXPIRATION | [id number] | | [facility] | | | DATE [...] + + + + | BLOOD | [id number] | | [facility] | | | PRODUCT [...] + | [facility] | [address] | [place] [address] | | | PATHOLOGY | [address] [...] + + + + | PRODUCT | [id number] | | [facility] | | | UNIT [...] + + + + | EXPIRATION | [id number] | | [facility] | | | DATE [...] + + + + | BLOOD | [id number] | | [facility] | | | PRODUCT [...] | + + + + + | [facility] | [address] | [place] [address] | | | PATHOLOGY | [address] [...] MACARIO | [address] | [place], [place] | | | RUTHIE CARTER OF [facility] | [facility] | [address] | | | TESTS | | | [...] + + + + | PRODUCT | [id number] | | [facility] | | | UNIT [...] + + + + | EXPIRATION | [id number] | | [facility] | | | DATE [...] + + + + | BLOOD | [id number] | | [facility] | | | PRODUCT [...] DEPARTMENT OF | [address] | [place] [address] | | | PATHOLOGY | [address] [...] SORTO | [address] | [place], [place] | | | RUTHIE CARTER OF CARE | [address] | [address] | | | TESTS | | | [...] YESSICA LOZA | [address] | [place] [address] | | | INDRA SHARIF | WALLY [...]
--- OUTSIDE RECORDS SUMMARY | ~2019-05-17 | XMS | Encounter Summary ---
Demographics + + + | Address | [address] | | | [place] [address] | + + + | Home Phone [...] Team Providers + +------+ + | Care Pr Internship Name | Role | Phone | + +------+ + | Zayda Hinton | PCP | | + +------+ + Encounter Details +--------+ + + + + | Date | Type | Department | Care Team | Description | +--------+ + + + + | 03/09/ | Pharmacy | Specialty Pharmacy | | | | 2015 | Visit | Services [address] | | | | | | [address] | | | | | | [place], [place] | | | | | | [address] | | | | | | [phone] | | | +--------+ + + + [...] | | | | | | [place], [place] | | | | | | [address] | | | | | | [phone] | | | | | | | | +--------+---------+ + + + documented as of this encounter Visit Diagnoses Not on filedocumented in this encounter"
--- OUTSIDE RECORDS SUMMARY | ~2019-05-17 | XMS | Encounter Summary ---
Demographics + + + | Address | [address] | | | [place] [address] | + + + | Home Phone [...] Team Providers + +------+ + | Care Cephalometric Technician Name | Role | Phone | [...] | | 2016 | | Hematologic | ARMAMENT REPAIRER [address] | | | | | Malignancies at [facility] | [address] | | | | | [address] | [place], [place] | | | | | Debi Burger Mailcode: | [address] | | | | | [address] [place] | [phone] | | | | | [place], | | | | | | [place] [address] | | | | | | [phone] | | | +--------+--------+ + + + [...] Rd | | | | | | [facility] [place] | | | | | | [address] | | | | | | [phone] | | | | | | | | +--------+---------+ + + + documented as of this encounter Visit Diagnoses Not on filedocumented in this encounter"
--- OUTSIDE RECORDS SUMMARY | ~2019-05-17 | XMS | Encounter Summary ---
Demographics + + + | Address | [address] | | | [place] [address] | + + + | Home Phone [...] Providers + +------+ + | Care Director Sports Name | Role | Phone | + [...] | | | Debi Burger Mailcode: | [place], [place] | | | | | [address] | [address] | | | | | [place], | [phone] | | | | | [place] [address] | | | | | | [phone] | | | +--------+ + + + [...] Rd | | | | | | [place], [place] | | | | | | [address] | | | | | | [phone] | | | | | | | [...] | | + +---------+ + + | [facility] DEPARTMENT OF | | | | | RADIOLOGY | | | | + +---------+ + + documented in this encounter Visit Diagnoses + + | Diagnosis | + + | Hip pain, left Pain in joint, pelvic region and thigh | + + documented in this encounter"
--- OUTSIDE RECORDS SUMMARY | ~2019-05-17 | XMS | Encounter Summary ---
Demographics + + + | Address | [address] | | | [place] [address] | + + + | Home Phone [...] Team Providers + +------+ + | Care Transport Truck Driver Name | Role | Phone [...] | 2017 | | Hematologic | [address] [facility] | Request | | | | Malignancies at | [address]bi [address] | ([place]etron) | | | | [facility] | [place], [place] | | | | | [address] [facility] | [address] | | | | | Debi Mailcode: | [phone] | | | | | [address] [place] | | | | | | Pavilion [place], | | | | | | [place] [address] | | | | | | [phone] | | | +--------+ + + + [...] [place] | | | | | | [address] | | | | | | [phone] | | | | | | | | +--------+---------+ + + + documented as of this encounter Visit Diagnoses Not on filedocumented in this encounter"
--- OUTSIDE RECORDS SUMMARY | ~2019-05-17 | XMS | Encounter Summary ---
Demographics + + + | Address | [address] | | | [place] [address] | + + + | Home Phone [...] Team Providers + +------+ + | Care Physician Surgeon Name | Role | Phone | [...] | | | | achieved | [place], [place] | [address] | | | | | remission | [address] | [place] | | | | | | Phone: | Asha | | | | | Procedures | [phone] | [place], [place] | | | | | Post BMT | Fax: | [address] | | | | | Auth to | [phone] | Phone: | | | | | included | | [phone] | | | | | facility, | | Fax: | | | | | diagnostics, | | [phone] | | | | | office | [...] | (Primary Dx) | | | | [place] [facility] | [facility] [place] | | | | | [address] | [address] | | | | | Debi Burger Mailcode: | [phone] | | | | | [address] [place] | | | | | | [place], | | | | | | [place] [address] | | | | | | [phone] | | | +--------+---------+ + + + [...] Donor: MMURD (DPB1 permissive antigen mismatch, male, [id number]) Identifying Data: Khurram Kelly is a 26 [...] his L ankle. He was evaluated at [facility] ED on 06/[address] angiogram [...] acute myelomonocytic leukemia. He was referred to [facility] for further evaluation and man agement of his newly dx'd AML. Pt was admitted to [facility] on 05/26/15. Peripheral blood [...] CD34, variable CD56, variable CD117, and dim MH146-yfmgq mickey; promonocyte immunophenotype (70% by flow): CD11b, [...] abdominal pain. Planning on moving back to [place] later this summer. No fevers/chills. No skin [...] 12/18/2016 Assessment/Plan: 1. 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 He initially responded but flared during taper. He also developed low-level nausea and abd discomfort concerning for GvHD, emp irically treated with oral non-absorbables with resolution. - He had tapered prednisone to 10 mg po daily when he developed a rash for which he was see n in the ED in [place] in late 01/21. Prednisone was increased back [...] His most recent immune reconstitution panel [facility] 08/31/16 showed normal total [...] one patient with minimal guidance from the microfilmer (not t he usual microfilmer). He is willing to give it another try but thinks individualtherapy may be best for him. He has since restarted xanax 1 mg po TID with marked improvement in h is symptoms. 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 States he is plann ing to come to [place] monthly for f/u with us after return to [place] this summer. 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
--- OUTSIDE RECORDS SUMMARY | ~2019-05-17 | XMS | Encounter Summary ---
Demographics + + + | Address | [address] | | | [place] [address] | + + + | Home Phone [...] Team Providers + +------+ + | Care Oyster Shipper Name | Role | Phone | + [...] | | | | | remission | [address] | [facility] | | | | | Procedures | Phone: | [place] | | | | | [place] | [phone] | Pavilion | | | | | AZACITIDINE | Fax: | [place], [place] | | | | | INJECTION, 1 | [phone] | [address] | | | | | [place] | | Phone: | | | | | CHM,IV | | [phone] | | | | | INFSN,1 HR | | Fax: | | | | | [place] CHM,IV | | [phone] | | | | | INFSN,ADDL | [...] | | | | | | Ash[place], | | | | | | [place] [address] | | | | | | [phone] | | | +--------+ + + + [...] Rd | | | | | | [place], [place] | | | | | | [address] | | | | | | [phone] | | | | | | | [...] | | | PDT | transplant ([facility]) | results section. | | | | | Acute myeloid | | | | | | leukemia (AML), M4 | | | | | | ([facility])- primary | [...] + + + | YESSICA SORTO | [address] | [place], [place] | | | EMMA POINT OF CARE | [address] | [address] | | | TESTS | | | [...] + + + | Test performed at [facility]. Therapeutic range is based on | [...] + | [facility] | [address] [facility] | [place] [address] | | | SERVICES, SPECIAL | WALLY [...]
--- OUTSIDE RECORDS SUMMARY | ~2019-05-17 | XMS | Encounter Summary ---
Demographics + + + | Address | [address] | | | [place] [address] | + + + | Home Phone [...] Providers + +------+ + | Care Top Frame Fitter Name | Role | Phone | [...] Carrera | | | | | | [place], [place] | | | | | | [address] | | | | | | [phone] | | | +--------+ + + + [...] Rd | | | | | | [place], [place] | | | | | | [address] | | | | | | [phone] | | | | | | | | +--------+---------+ + + + documented as of this encounter Visit Diagnoses Not on filedocumented in this encounter"
--- OUTSIDE RECORDS SUMMARY | ~2019-05-17 | XMS | Encounter Summary ---
Demographics + + + | Address | [address] | | | [place] [address] | + + + | Home Phone [...] Providers + +------+ + | Care Home Service Director Name | Role | Phone [...] | | myelomonocyt | [address] | [address] | | | | | ic leukemia, | Paulina Eugene | [facility] | | | | | not having | [address] | [address] | | | | | achieved | [place], [place] | Rd Mailcode: | | | | | remission | [address] | [id number] | | | | | Procedures | Phone: | [place] | | | | | [place] | [phone] | Pavilion | | | | | AZACITIDINE | Fax: | [place], [place] | | | | | INJECTION, 1 | [phone] | [address] | | | | | [facility] [place] | | Phone: | | | | | CHM,IV | | [phone] | | | | | INFSN,1 HR | | Fax: | | | | | [place] CH[facility],IV | | [phone] | | | | | INFSN,ADDL | [...] | | | | | | [id number] [place] | | | | | | [place], | | | | | | [place] [address] | | | | | | [phone] | | | +--------+ + + + [...] others may occur. Call your doctor for [facility] advice about side effects. You may report side effects to FDA at 4-571-VHR-0593. What other drugs will affect pentamidine? Other drugs may interact with pentamidine, including prescription and jumt-moc-kqgdvsz medi cines, vitamins, and herbal products. Tell [...] to ensure that the information provided by [employer] ( '[employer]') is accurate, up-to-date, and complete, but no guarantee is made to that effect. Dr anny information contained herein may be time sensitive. [employer] information has been compiled for use by healthcare practitioners and consumers in the [place] and therefore [employer] does not warrant that uses outside of the [place] are appropriate, unless specifically indicated otherwise. [employer] drug information does not endorse drugs, diagnose patients or recommend therapy. [employer] drug information is an informational resource designed [...] effective or appropriate for any given patient. [facility] does not assume any respon sibility for any aspect of healthcare administered with the aid of information [employer] provid es. The information contained herein is not intended to cover all possible uses, directions, precautions, warnings, drug interactions, allergic reactions, or adverse effects. If you bower ve questions about the drugs you are taking, check with your doctor, nurse or pharmacist. Copyright 3649-2687 [employer] Version: 2.01. Revision date: 04/21/2013. This information does not replace the advice of a doctor. [employer] disclaim s any warranty or liability for your use of this information. Content Version: 10.7.475780 documented in this encounter Progress Notes Samantha [...] 05/19/ | Office | Hematology | Yari aGrcia MD | | | 2018 | Visit | Malignancy | [address] [facility] | | | | | | [address] | | | | | | [place], [place] | | | | | | [address] | | | | | | [phone] | | | | | | | [...] M4 | | | | | | ([facility])- primary | | | | | | induction failure | | + +--------+ + + + | NURSING | Routin | 12/02/2015 | S/P allogeneic | | | COMMUNICATION #5 - | e | 8:08 AM | bone marrow | | | [facility] | | PDT | transplant ([facility]) | | | | | | Acute myeloid | | | | | | leukemia (AML), M4 | | | | | | ([facility])- primary | | [...] M4 | | | | | | ([facility])- primary | | | | | | induction failure | | + +--------+ + + + | NURSING | Routin | 12/02/2015 | S/P allogeneic | | | COMMUNICATION #3 - | e | 8:08 AM | bone marrow | | | [place] | | PDT | transplant ([facility]) | | | | | | Acute myeloid | | | | | | leukemia (AML), M4 | | | | | | ([facility])- primary | | [...] M4 | | | | | | ([facility])- primary | | [...] M4 | | | | | | ([facility])- primary | | [...] M4 | | | | | | ([facility])- primary | | [...] | + + + + + | [facility] | [address] | [place] [address] | | | SERVICES, SPECIAL | WALLY [...] SORTO | [address] | [place], [place] | | | RUTHIE CARTER OF CARE | [address] | [address] | | | TESTS | | | [...] | [address] | [place], [place] | | | [facility] POINT OF CARE | [address] | [address] | | | TESTS | | | [...] | + + + + + | [facility] | [address] [facility] [address] | [place] [address] | | | SERVICES, CORE | [address] [...] LOZA | [address] | [place] [address] | | | SERVICES, SPECIAL | [address] | | | | IMM + COAG | | | | + + + + + documented in this encounter Visit Diagnoses + + | Diagnosis | + + | Acute myeloid leukemia (AML), M4 ([facility])- primary induction failure - Primary [...] | | | | | | [facility] 12/02/15 at 0900, HIGH RISK | | [...] PDT | | | | | Starting [facility] 12/02/15 at 1213, | | | | | | | Until [facility] 12/02/15 at 1836, line | | | [...]
--- OUTSIDE RECORDS SUMMARY | ~2019-05-17 | XMS | Encounter Summary ---
Demographics + + + | Address | [address] | | | [place] [address] | + + + | Home Phone [...] Team Providers + +------+ + | Care Dungeon Master Name | Role | Phone | + +------+ + | Pending Pcp Addition | PCP | Unavailable | + +------+ + Reason for Visit + + + | Reason | Comments | + + + | Procedure | | + + + Office Visit [...] | | | | | remission | [address] | [facility] | | | | | | Phone: | [facility] | | | | | Procedures | [phone] | [place], [place] | | | | | Post BMT | Fax: | [address] | | | | | Auth to | [phone] | Phone: | | | | | included | | [phone] | | | | | facility, | | Fax: | | | | | diagnostics, | | [phone] | | | | | office | | | | | | | visits and | | | | | | | surgery | | | +--------+---------+ + + + + Encounter Details +--------+---------+ + + + | Date | Type | Department | Care Team | Description | +--------+---------+ + + + | 09/26/ | Office | [facility] for | Em Saunders, | 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 Keep your dressing dry for the next 24 hours; no shower or bath until tomorrow. 2. If you notice any signs of infection at the biopsy site (redness, tenderness, drainage) , please call the Triage nurse at ([phone]) or BMT person on-call ([phone]) after hours. 3. If you received medications such as ativan or morphine, or any other sedating medi cations, you may not drive for at least 8 hours. documented in this encounter Progress Notes Em Saunders PA-C - 09/27/2015 8:55 AM PDTFormatting of this note might be different f rom the original. Procedure Note 09/27/2015 PCP: Pending Pcp ADDITION Procedure: Bone marrow aspirate and biopsy Indications: Acute Myeloid Leukemia Team Pause: At 14:21, prior to the beginning of the procedure the team paused to verify th e patient's identity, as well as the procedure to be performed and the correct side/site. A ll equipment required was ready and available. The patient was positioned appropriately. Th e following team members were present during the team pause: Em Saunders PA-C and Alicia cevallos MA. Description: Written consent for bone marrow aspirate and biopsy was obtained from the maxx ent following a brief discussion regarding the risks and benefits of the procedure. He recei lilly anxiolysis pre-medication with Morphine 3 mg IV. He was then placed in the prone positio n and the skin over his left posterior iliac crest was cleansed with betadine and draped in a sterile manner. Lidocaine was used for local anesthesia. A scalpel was used to enlarge the insertion site and a Jamshidi was inserted. The first aspirate yielded sufficient spicule p er bone marrow tech Alex; 1 mL was submitted for morphology studies. A second aspirate was obtained in a dry syringe for [employer]. A third aspirate was obtained in a dry syringe and submitted for VNTR. A second aspirate was obtained in a heparinized syringe and submitted f or flow cytometry and cytogenetics relex FISH. A total of 10 mL of marrow was aspirated. The Jamshidi needle was then repositioned. A core biopsy measuring approximately 1 cm was obtained and submitted for morphology studies. Hemostasis was achieved and a pressure dressing was applied. The patient was placed in the supine position. He was observed for 15 minutes post-procedure for signs of bleeding and di scharged home. Pt tolerated the procedure well without complications. The results of this procedure will take approximately 7 to 10 days for full analysis. Vivas marco, preliminary results should be available within the next 24 to 48 hours. Lab Results Component Value Date WBC 9.9 09/27/2015 RBC 3.36* 09/27/2015 HB 10.2* 09/27/2015 HCT 30.0* 09/27/2015 MCV 89.3 09/27/2015 MCHC 34.0 09/27/2015 RDW 40.3 09/12/2015 PLT 141* 09/27/2015 MPV 11.3 09/12/2015 NRBCPERC 0.8* 09/12/2015 NRBCABS 0.07* 09/12/2015 NEUTROPERC 74.6* 09/12/2015 LYMPHPERC 9.6* 09/12/2015 BANDSPCT 0.0 08/19/2015 MONOPERC 15.8* 09/27/2015 EOSPERC 3.1* 09/27/2015 BASOPERC 1.2 09/27/2015 IMGRANPERC 3.5* 09/12/2015 NEUTROPHILCO 6.9 09/27/2015 BANDSABS 0.00 08/19/2015 LYMPHSABS 0.89* 09/12/2015 MONOCYTECO 1.6* 09/27/2015 EOSCO 0.3 09/27/2015 BASOPHILCO 0.1* 09/27/2015 IMGRANABS 0.32* 09/12/2015 Em Saunders PA-C [facility] [address] Mailcode: [id number] [place] [phone] documented in this encounter Plan of Treatment [...] Rd | | | | | | [place], [place] | | | | | | [address] | | | | | | [phone] | | | | | | | | +--------+---------+ + + + + +------+--------+ + + | Name | Type | Priori | Associated Diagnoses | Date/Time | | | | ty | | | + +------+--------+ + + | ENGRAFTMENT POST | Lab | Routin | Acute myeloid | 09/27/2015 10:10 AM | | TRANSPLANT, BLOOD | | e | leukemia (AML), M4 | PDT | | | | | ([facility])- primary | 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 | | | | | | ([facility]) | | + +------+--------+ + + + + +--------+ + + | Name | Type | Priori | Associated Diagnoses | Order Schedule | | | | ty | | | + + +--------+ + + | ENGRAFTMENT POST | Lab - | Routin | Acute myeloid | Ordered: 09/27/2015 | | TRANSPLANT, BLOOD | Beaker | e | leukemia (AML), M4 | | | (PP) | [facility] | | (HCC)- primary | | | | Only | | induction failure | | | | | | S/P allogeneic bone | | | | | | marrow transplant | | | | | | ([facility]) | | + + +--------+ + + documented as of this encounter Procedures + +--------+ + + + | Procedure Name | Priori | Date/Time | Associated Diagnosis | Comments | | | ty | | | | + +--------+ + + + | ENGRAFTMENT POST | Routin | 09/27/2015 | Acute myeloid | Results for this | | TRANSPLANT, BLOOD | e | 10:10 AM | leukemia (AML), M4 | procedure are in the | | (LABEL) | | PDT | (HCC)- primary | results section. 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 | | | | | | (HCC) | | + +--------+ + + + | GENETRAILS AML/MDS | Routin | 09/27/2015 | Acute myeloid | Results for this | | GENE MUTATION PANEL, | e | 10:08 AM | leukemia (AML), M4 | procedure are in the | | BM (LABEL) | | PDT | (HCC)- primary | results section. 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 | | | | | | (HCC) | | + +--------+ + + + | CYTOGENETICS BONE | Routin | 09/27/2015 | Acute myeloid | | | MARROW ALL FISH | e | 10:08 AM | leukemia (AML), M4 | | | PANEL | | PDT | ([facility])- primary | 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 | | | | | | (HCC) | | + +--------+ + + + | LEUKEMIA/LYMPHOMA | Routin | 09/27/2015 | Acute myeloid | | | MARKERS - BONE | e | 10:08 AM | leukemia (AML), M4 | | | MARROW | | PDT | ([facility])- primary | 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 | | | | | | (HCC) | | + +--------+ + + + | HI BONE MARROW ASP | Routin | 09/27/2015 | 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), M4 | | | | | PDT | ([facility])- primary | 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 | | | | | | ([facility]) | | + +--------+ + + + | HI BONE MARROW BX, | Routin | 09/27/2015 | Acute myeloid | | | NEEDLE/TROCAR | e | 8:55 AM | leukemia (AML), M4 | | | | | PDT | ([facility])- primary | 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 | | | | | | ([facility]) | | + +--------+ + + + | GENETRAILS AML/MDS | Routin | 09/27/2015 | Acute myeloid | Results for this | | GENE MUTATION PANEL, | e | | leukemia (AML), M4 | procedure are in the | | BM (PP) | | | ([facility])- primary | results section. 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 | | | | | | (HCC) | | + +--------+ + + + | GENETRAILS AML/MDS | Routin | 09/27/2015 | Acute myeloid | Results for this | | GENE MUTATION PANEL, | e | | leukemia (AML), M4 | procedure are in the | | BM | | | (HCC)- primary | results section. 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 | | | | | | (HCC) | | + +--------+ + + + | CYTOGENETICS BONE | Routin | 09/27/2015 | Acute myeloid | Results for this | | MARROW CHROMOSOME | e | | leukemia (AML), M4 | procedure are in the | | ANALYSIS W/ REFLEX | | | ([facility])- primary | results section. | | FISH (PP) | | | induction failure | | | | | | S/P allogeneic bone | | | | | | marrow transplant | | | | | | (HCC) | | + +--------+ + + + | LEUKEMIA/LYMPHOMA | Routin | 09/27/2015 | Acute myeloid | Results for this | | MARKERS - BONE | e | | leukemia (AML), M4 | procedure are in the | | MARROW (PP) | | | (HCC)- primary | results section. 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 | | | | | | (HCC) | | + +--------+ + + + | LEUKEMIA/LYMPHOMA | Routin | 09/27/2015 | Acute myeloid | Results for this | | MARKERS - BONE | e | | leukemia (AML), M4 | procedure are in the | | MARROW | | | (HCC)- primary | results section. 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 | | | | | | (HCC) | | + +--------+ + + + | CYTOGENETICS BONE | Routin | 09/27/2015 | Acute myeloid | Results for this | | MARROW CHROMOSOME | e | | leukemia (AML), M4 | procedure are in the | | ANALYSIS W/ REFLEX | | | ([facility])- primary | results section. | | FISH | | | induction failure | | | | | | S/P allogeneic bone | | | | | | marrow transplant | | | | | | (HCC) | | + +--------+ + + + documented in this encounter Results ENGRAFTMENT POST TRANSPLANT, BLOOD (LABEL) (09/27/2015 10:10 AM PDT) + + + + + [...] + + + + | [facility] | [address] | [place] [address] | | | DIAGNOSTIC | [address] | | | | LABORATORIES | | | | + + + + + LEUKEMIA/LYMPHOMA MARKERS - BONE MARROW (LABEL) (09/27/2015 10:08 AM PDT) + + | Specimen | + + | Bone marrow - Bone | | marrow structure | | (body structure) | + + + + + + + | Performing | Address | City/State/Zipcode | Phone Number | | Organization | | | | + + + + + | Float: [employer] | [address] | [place] [address] | | | SERVICES, SPECIAL | [address] | | | | IMM + COAG | | | | + + + + + GENETRAILS AML/MDS GENE MUTATION PANEL, BM (LABEL) (09/27/2015 10:08 AM PDT) + + + + [...] + + + + | [facility] | [address] , | [place] [address] | | | DIAGNOSTIC | [address] | | | | LABORATORIES | | | | + + + + + CYTOGENETICS BONE MARROW CHROMOSOME ANALYSIS W/ REFLEX FISH (LABEL) (09/27/2015 10:08 AM PD T) + + | Specimen | + + | Bone marrow - Bone | | marrow structure | | (body structure) | + + + + + + + | Performing | Address | City/State/Zipcode | Phone Number | | Organization | | | | + + + + + | [facility] | [address] | [place] [address] | | | DIAGNOSTIC | [address] | | | | LABORATORIES | | | | + + + + + LEUKEMIA/LYMPHOMA MARKERS - BONE MARROW (PP) (09/27/2015) + + + [...] | | | | | | leukemia | | | | | | statuspost-transplant | | | | | | (08/27/2015). Final | | | | | | Pathologic | | | | | | Diagnosis:Peripheral | | | | | | blood: - | | | | | | Normocytic anemia and | | | | | | absolute lymphopenia | | | | | | - Absolute | | | | | | monocytosis Bone | | | | | | marrow aspirate, core | | | | | | biopsy, and clot | | | | | | section: - | | | | | | Hypocellular bone marrow | | | | | | (30%) with trilineage | | | | | | hematopoiesis - No | | | | | | evidence of leukemia; | | | | | | blasts less than 2% | | | | | | Comment: | | | | | | Correlation with | | | | | | pending | | | | | | cytogenetic/molecular | | | | | | studies isrecommended. | | | | | | Case seen | | | | | | by:Kary Ponec, | | | | | | M.D./HematopathologistT: | | | | | | 09/28/15:nicole/rdl | | | | | | Gross [...] | | | | | | core measuring1.0 cm in | | | | | | greatest dimension. | | | | | | Both clot and the | | | | | | fragment biopsy were | | | | | | fixedin formalin and the | | | | | | core biopsy was | | | | [...] | | | | | the peripheral | | | | | | bloodcorrelates with the | | | | | | reported CBC data. | | | | | | Red blood cells | | | | | | exhibit | | | | | | mildanisopoikilocytosis. | | | | | | Neutrophils show | | | | | | predominately normal | | | | | | morphology.There are | | | | | | circulating immature | | | | | | granulocytes but no | | | | | | blasts are | | | | | | identified.Lymphocytes | | | | | | are within a reactive | | | | | | morphologic spectrum. | | | | | | Monocytes exhibitmature | | | | | | morphology. Platelets | | | | | | show predominantly | | | | | | normal morphology. | | | | | | Bone Marrow Aspirate: | | | | | | The aspirate smears | | | | | | contain adequate | | | | | | particles forevaluation. | | | | | | There is trilineage | | | | | | hematopoiesis with full | | | | | | maturation ofmyeloid and | | | | | | erythroid precursors | | | | | | with no significant | | | | | | dysplasia. Blasts | | | | | | arenot increased. | | | | | | Megakaryocytes are | | | | | | unremarkable. A | | | | | | bone marrow aspirate | | | | | | differential count | | | | | | includes: Myeloid | | | | | | coujmtwmhc45%, erythroid | | | | | | precursors 17%, | | | | | | lymphocytes 2.5%, | | | | | | monocytes 3.5%, | | | | | | andeosinophils 2%. | | | | | | Bone Marrow Biopsy and | | | | | | Clot Section: The core | | | | | | biopsy contains about 8 | | | | | | mmof evaluable marrow | | | | | | with an estimated | | | | | | cellularity of 30%. | | | | | | There istrilineage | | | | | | hematopoiesis with a | | | | | | cellular composition | | | | | | similar to that seenin | | | | | | the bone marrow | | | | | | aspirate. No atypical | | | | | | clusters or sheets of | | | | | | blasts areidentified. | | | | | | Megakaryocytes are | | | | | | unremarkable. The | | | | | | clot section contains | | | | | | marrow particles with | | | | | | similar findings. | | | | | | Immunologic Analysis:The | | | | | | analysis was performed | | | | | | by flow cytometry on the | | | | | | bone marrow | | | | | | aspiratespecimen. The | | | | | | analysis shows | | | | | | CD34/CD117 positive | | | | | | myeloid blasts | | | | | | compriseless than 1% of | | | | | | total CD45 positive | | | | | | cells. About 5% of | | | | | | cells are | | | | | | monocyteswithout | | | | | | aberrant antigen | | | | | | expression. | | | | | | Approximately 4% of | | | | | | cells arelymphocytes | | | | | | composed of 72% T cells, | | | | | | 23% NK cells, and less | | | | | | than 1% Bcells. No | | | | | | monoclonal B-cell | | | | | | population is detected. | | | | | | T cells exhibit | | | | | | aCD4:CD8 ratio of about | | | | | | 1:1 without aberrant | | | | | | antigen expression. | | | | | | Please crys for | | | | | | antibodies tested: | | | | | | Antibodies Tested | | | | | | CD2 sCD3 CD4 CD5 | | | | | | CD7 CD8 CD10 | | | | | | [id number] CD14 CD15 CD16 | | | | | | CD19 CD20 CD33 [id number] | | | | | | CD45 CD56 CD58 CD64 | | | | | | CD71 CD117 | | | | | | [id number] sLambda | | | | | | [...] Laboratory | | | | | | Data:09/27/2015 11:05AM | | | | | | Ref | | | | | | Range Value WBC | | | | | | POC 4.4-11.0 10*3/uL | | | | | | 9.9RBC POC | | | | | | 4.50-6.00 10*6/uL | | | | | | 3.36 (L)HGB POC | | | | | | 13.5-17.5 g/dL 10.2 | | | | | | (L)HCT POC 41.0-53.0 | | | | | | % 30.0 (L)MCV POC | | | | | | 80.0-96.0 fL | | | | | | 89.3MCH POC 28.5-32.3 | | | | | | pg 30.4MCHC POC | | | | | | 33.0-35.5 g/dL 34.0RDW | | | | | | SD, POC 35.1-46.3 | | | | | | fL 50.0 (H)PLT POC | | | | | | 150-400 10*3/uL | | | | | | 141 (L)MPV POC | | | | | | 9.7-12.3 fL 8.2 | | | | | | (L)NEUTROPHIL% POC | | | | | | 50.0-70.0 % | | | | | | 69.9LYMPH% POC | | | | | | 18-42 % 10.0 (L)MONO | | | | | | %, POC 3.5-9.0 % | | | | | | 15.8 (H)EOS %, POC | | | | | | 1.0-3.0 % 3.1 (H)BASO | | | | | | %, POC 0.0-2.0 % | | | | | | 1.2NEUTROPHIL# POC | | | | | | 1.8-7.7 10*3/uL | | | | | | 6.9LYMPH# POC | | | | | | 1.0-4.8 10*3/uL | | | | | | 1.0 (L)MONO #, POC | | | | | | 0.1-0.9 10*3/uL | | | | | | 1.6 (H)EOS #, POC | | | | | | 0.0-0.5 10*3/uL | | | | | | 0.3BASO #, POC | | | | | | 0.0-0.1 10*3/uL | | | | | | 0.1 (H)CBC COMMENT, POC | | | | | | Imm Gran. | | | | | | Lft Shift. My | | | | | | [...] Ponce | | | | | | Demario | | | | | | yoana Signed 09/29/2015 | | | | | | 5:25PM | | | | + + + [...] | + + + + + | [facility] | [address] | [place] [address] | | | PATHOLOGY | [address] | | | + + + + + GENETRAILS AML/MDS GENE MUTATION PANEL, BM (PP) (09/27/2015) + + + + + [...] | | | | | | g: - The following | | | | | | gene variant has been | | | | | | found in this | | | | | | post-transplant | | | | | | bonemarrow specimen. | | | | | | This IL7R variant was | | | | | | not present in the | | | | | | pre-transplantsamples. | | | | | | The exact clinical | | | | | | significance of this | | | | | | variant is unknown and | | | | | | itmay be a benign | | | | | | germline polymorphism of | | | | | | donor origin. - | | | | | | The previously detected | | | | | | NRAS mutation is not | | | | | | detectable (with a | | | | | | detectionlimit of | | | | | | ~0.5%). Gene: | | | | | | CX4HYarwicb: | | | | | | p.S185I (possibly a | | | | | | benign germline | | | | | | polymorphism of | | | | | | donororigin)Variant | | | | | | Allele frequency: 51% | | | | | | The IL7R gene | | | | | | encodes a receptor for | | | | | | interleukin 7 (IL7). | | | | | | Targeted therapyfor | | | | | | IL7R mutations is not | | | | | | currently available. | | | | | | IL7R mutations are | | | | | | reportedin lymphoblastic | | | | | | leukemia but have not | | | | | | been well-described in | | | | | | myeloidmalignancies. | | | | | | This missense variant | | | | | | has not been reported | | | | | | in the COSMIC or | | | | | | dbSNPdatabases. It is | | | | | | predicted to be | | | | | | biochemically neutral by | | | | | | multiplefunctional | | | | | | protein prediction | | | | | | algorithms. Although the | | | | | | exact | | | | | | clinicalsignificance of | | | | | | this variant is unknown, | | | | | | it may be a benign | | | | | | germlinepolymorphism of | | | | | | donor origin. | | | | | | Average# of DNA sequence | | | | | | reads (ie, depth of | | | | | | coverage) for each of | | | | | | the 42genes: 1534 | | | | | | Each of the 42 | | | | | | genes [...] | | | | | | 100%CEBPA 74% | | | | | | IL7R [...] KDM6A | | | | | | 96% TET2 100%EZH2 | | | | | [...] Ion | | | | | | [employer] PGM. The | | | | | [...] | | | | | by routine [place] | | | | | | dideoxy sequencing | | | | | | methods. A list of the | | | | | | genesegments that are | | | | | | incompletely covered by | | | | | | the combination of | | | | | | massivelyparallel and | | | | | | [place] sequencing are | | | | | [...] supplementary | | | | | | dnn-uyhsnpdmum-kzyta | | | | | | assay [...] on | | | | | | variant identified in | | | | | | this specimen: | | | | | | Gene Transcript | | | | | | Genome Chrom | | | | | | Start End Ref | | | | | | [id number] | | | | | | hg19 chr5 [id number] | | | | | | [id number] G T | | | | | | Case reviewed | | | | | | by:Kian Bustamante M.D., | | | | | | Ph.D./ Molecular Genetic | | | | | | Pathology FellowPhilipp | | | | | | August Fitzpatrick, | | | | | | Ph.D./Hematopathologist | | | | | | (Analyte [...] # | | | | | | [id number]. It has not | | | | [...] | | | | | | [facility] | | | | | | DiagnosticsLaboratories | | | | | | are fully licensed by | | | | | | the state [facility] | | | | | | under CLIA and | | | | | | areaccredited by [place] | | | | | | of [place] | | | | | | Pathologists (CAP). | | | | | | Rendering | | | | | | Diagnostician: Nicanor | | | | | | Rusty Fitzpatrick M.D., | | | | | | Ph.D.PathologistElectron | | | | | | ically Signed 10/07/2015 | | | | | | 5:22PM | | | | + + + [...] + + + | [facility] | [address] | [place] [address] | | | DIAGNOSTIC | [address] | | | | LABORATORIES | | | | + + + + + CYTOGENETICS BONE MARROW CHROMOSOME ANALYSIS W/ REFLEX FISH (PP) (09/27/2015) + + + + + [...] | | myeloid leukemia; Status | | LABORATORIE | | | | post bone | | S | | | | marrowtransplant | | | | | | Chromosome Results: | | | | | | NormalKARYOTYPE RESULTS: | | | | | | 46,XY[20] | | | | | | [...] | | | | | | Karyotyped: 2 | | | | | | The clinical | | | | | | interpretation was made | | | | | | by the clinical | | | | | | head of product. | | | | | | Rendering | | | | | | Diagnostician: [facility] | | | | | | Efrem Kaba, ABMG, | | | | | | FACMGClinical | | | | | | CytogeneticistElectronic | | | | | | ally Signed 10/05/2015 | | | | | | 4:42PMRendering | | | | | | Diagnostician: [facility] | | | | | | Joceline PERERA, AB, | | | | | | FACMGClinical | | | | | | GeneticistElectronically | | | | | | Signed 10/05/2015 | | | | | | 6:01PM | | | | + + + [...] + + + + | [facility] | [address] | [place] [address] | | | DIAGNOSTIC | [address] [...]
--- OUTSIDE RECORDS SUMMARY | ~2019-05-17 | XMS | Encounter Summary ---
Demographics + + + | Address | [address] | | | [place] [address] | + + + | Home Phone [...] Team Providers + +------+ + | Care Gunner'S Mate Name | Role | Phone | + +------+ + | Pending Pcp Addition | PCP | Unavailable | + +------+ + Reason for Visit + + + | Reason | Comments | + + + | Schedule labs | Periph | + + + Benefits Check (Routine) [...] | | | | | | | [address] | | | | | | | [address] | | | | | | | [place], | | | | | | | [place] | | | | | | | [address] | | | | | | | Phone: | | | | | | | [phone] | | | | | | | Fax: | | | | | | | [phone] | +--------+--------+ + + + + Encounter Details +--------+ + + + + | Date | Type | Department | Care Team | Description | +--------+ + + + + | 04/03/ | Clinical | Center for | | Schedule labs | | 2016 | Support | Hematologic | | ([facility] | | | Staff | Malignancies at [facility] | | | | | | [address] | | | | | | Wally [address] Mailcode: | | | | | | [facility] [place] | | | | | | [place], | | | | | | [place] [address] | | | | | | [phone] | | | +--------+ + + + [...] + + + | Blood Pressure | 130/81 | 04/03/2016 11:43 AM | | | | | PDT | | + + + + + | Pulse | 77 | 04/03/2016 11:43 AM | | | | | PDT | | + + + + + | Temperature | 36.8 C (98.3 F) | 04/03/2016 11:43 AM | | | | | PDT | | + + + + + | Respiratory Rate | 16 | 04/03/2016 11:43 AM | | | | | PDT | | + + + + + | Oxygen Saturation | 98% | 04/03/2016 11:43 AM | | | | | PDT | | + + + + + | Inhaled Oxygen | - | - | | | Concentration | | | | + + + + + | Weight | 94.9 kg (209 lb 3.5 | 04/03/2016 11:43 AM | | | | oz) | PDT | | + + + + + | Height | - | - | | + + + + + | Body Mass Index | 26.57 | 01/25/2016 8:24 AM | | | | | PDT | | + + + + + documented in this encounter Progress Notes Jyoti Ramachandran RN - 04/03/2016 12:22 PM PDTPt is here today for lab draw. Patient reports she is feeling well today. Khurram has no complaints, besides some lighthe adedness when he gets up from laying down too long. The patient denies colds, flu, fever, in fection, nausea, vomiting, diarrhea, constipation, neuropathy, mucositis, edema, skin rash, urinary issues, and signs or symptoms of bleeding. The patient reports that he is eating well and drinking at least two liters of fluid daily. Right AC accessed with a 23 gauge butterfly needle by Deedee Carter RN. Labs drawn and sen t. Tolerated procedure well. Site dressed with sterile gauze and Coban. Lab work printed out and went over with patient. Pt discharged from clinic. Left clinic [...] Rd | | | | | | [place], [place] | | | | | | [address] | | | | | | [phone] | | | | | | | | +--------+---------+ + + + documented as of this encounter Procedures + +--------+ + + + | Procedure Name | Priori | Date/Time | Associated Diagnosis | Comments | | | ty | | | | + +--------+ + + + | CBC+DIFF,POC | Routin | 04/03/2016 | S/P allogeneic | Results for this | | | e | 11:54 AM | bone marrow | procedure are [...] + MAG, POC CHM | Routin | 04/03/2016 | S/P allogeneic | Results for this | | | e | 11:52 AM | bone marrow | procedure are [...] + | CMV PCR | Routin | 04/03/2016 | S/P allogeneic | Results for this | | QUANTITATION, PLASMA | e | 11:42 AM | bone marrow | procedure are [...] + | LIVER SET | Urgent | 04/03/2016 | S/P allogeneic | Results for this | | (AST,ALT,BILI | | 11:42 AM | bone marrow | procedure are [...] + documented in this encounter Results CBC+DIFF,POC (04/03/2016 11:54 AM PDT) + + + + + + | Component | Value | Ref Range | Performed | Pathologist | | | | | At | Signature | + + + + + + | WBC POC | 7.1 | 4.4 - 11.0 | [facility] - | | | | | 10*3/uL | [facility] | | | | | | [facility] | | | | | | OF CARE | | | | | | TESTS | | + + + + + + | RBC POC | 3.91 (L) | 4.50 - 6.00 | [facility] [...] + + + | HCT POC | 39.7 (L) | 41.0 - 53.0 % | [...] + + + | MCHC POC | 34.8 | 33.0 - 35.5 | [facility] - | | | | | g/dL | [place] | | | | | | RUTHIE CARTER | | | | | | OF CARE | | | | | | TESTS | | + + + + + + | RDW SD, POC | 47.3 (H) | 35.1 - 46.3 fL | [facility] - | | | | | | [place] | | | | | | RUTHIE CARTER | | | | | | OF CARE | | | | | | TESTS | | + + + + + + | PLT POC | 140 (L) | 150 - 400 | [facility] [...] + + + + | NEUTROPHIL% | 54.7 | 50.0 - 70.0 % | [facility] - | | | POC | | | [place] | | | | | | [facility], POINT | | | | | | OF CARE | | | | | | TESTS | | + + + + + + | LYMPH% POC | 26.9 | 18 - 42 % | [facility] - | | | | | | [place] | | | | | | [place] [place] | | | | | | OF CARE | | | | | | TESTS | | + + + + + + | MONO %, POC | 12.9 (H) | 3.5 - 9.0 % | [facility] - | | | | | | [place] | | | | | | [facility], POINT | | | | | | OF CARE | | | | | | TESTS | | + + + + + + | EOS %, POC | 5.2 (H) | 1.0 - 3.0 % | [...] + + + + | NEUTROPHIL# | 3.9 | 1.8 - 7.7 | [facility] - [...] S[facility] | [address] | [place], [place] | | | RUTHIE CARTER OF KRISTA | [address] | [address] | | | TESTS | | | | + + + + + BMP + PHIL ROBERTSON (04/03/2016 11:52 AM PDT) + +---------+ + + + [...] + + + | LDH, POC | 257 (H) | 0 - 206 U/L | [...] + + + | [facility] | [address] | [place], [place] | | | [facility] POINT OF CARE | [address] | [address] | | | TESTS | | | | + + + + + LIVER SET (AST,ALT,BILI TOTAL,BILI DIRECT,ALK PHOS,ALB,PROT TOTAL) (04/03/2016 11:42 AM PDT ) + +---------+ + + [...] [facility] | [address] | [place] [address] | | | KOLE, INDRA | [address] | | | + + + + + CMV PCR QUANTITATION, PLASMA (04/03/2016 11:42 AM PDT) + + + + + [...] may not reflect true | [facility] | | biological changes and must [...] | characteristics determined by the [facility] | | | [facility] Diagnostic Center. It has not been cleared or approved by | | | the Food and Drug Administration. FDA approval is not required for | | | clinical use of this test, and therefore validation was done as | | | required under the requirements of the Clinical Laboratory Improvement | | | Act of 1988. The [facility] | | | Diagnostic Center is a fully licensed and/or accredited clinical | | | laboratory under CLIA, CAP, and the [facility]. | | + + + + + + + + | Performing | Address | City/State/Zipcode | Phone Number | | Organization | | | | + + + + + | [facility] | [address] | [place] [address] | | | DIAGNOSTIC | [address] [...]
--- OUTSIDE RECORDS SUMMARY | ~2019-05-17 | XMS | Encounter Summary ---
Demographics + + + | Address | [address] | | | [place] [address] | + + + | Home Phone [...] Team Providers + +------+ + | Care Heel Cover Softener Name | Role | Phone | + [...] | | | | | achieved | [place], [place] | [facility] | | | | | remission | [address] | [place] | | | | | | Phone: | Pavilion | | | | | Procedures | [phone] | [facility] [place] | | | | | [place] EST | Fax: | [address] | | | | | PATIENT | [phone] | Phone: | | | | | LEVEL V | | [phone] | | | | | | | Fax: | | | | | | | [phone] | + +--------+ + + + + Encounter Details +--------+---------+ + + + | Date | Type | Department | Care Team | Description | +--------+---------+ + + + | 05/15/ | Office | Center for | Yari Garcia MD | Arrived | | 2019 | Visit | Hematologic | [address] | | | | | Malignancies at [facility] | [facility] [address] | | | | | [address] | [place], [place] | | | | | Mailcode: Center | [address] | | | | | for Health and | [phone] | | | | | [facility] | | | | | | [facility] [place] | | | | | | [address] | | | | | | [phone] | | | +--------+---------+ + + + [...] [place] | | | | | | [address] | | | | | | [phone] | | | | | | | | +--------+---------+ + + + documented as of this encounter Visit Diagnoses Not on filedocumented in this encounter"
--- OUTSIDE RECORDS SUMMARY | ~2019-05-17 | XMS | Encounter Summary ---
Demographics + + + | Address | [address] | | | [place] [address] | + + + | Home Phone [...] Team Providers + +------+ + | Care Curb Machine Operator Name | Role | Phone | + +------+ + | Zayda Hinton | PCP | | + +------+ + Encounter Details +--------+ + + + + | Date | Type | Department | Care Team | Description | +--------+ + + + + | 04/09/ | Pharmacy | Specialty Pharmacy | | | | 2015 | Visit | Services [address] | | | | | | [address] | | | | | | [place], [place] | | | | | | [address] | | | | | | [phone] | | | +--------+ + + + [...] Rd | | | | | | [place], [place] | | | | | | [address] | | | | | | [phone] | | | | | | | | +--------+---------+ + + + documented as of this encounter Visit Diagnoses Not on filedocumented in this encounter"
--- OUTSIDE RECORDS SUMMARY | ~2019-05-17 | XMS | Encounter Summary ---
[...] Team Providers + +------+ + | Care Stock Room Manager Name | Role | Phone | [...] | | | | | | | [address] | | | | | | | Phone: | | | | | | | [phone] | | | | | | | Fax: | | | | | | | [phone] | +--------+--------+ + + + + Encounter Details +--------+ + + + + | Date | Type | Department | Care Team | Description | +--------+ + + + + | 04/03/ | Clinical | Center for | | Schedule labs | | 2016 | Support | Hematologic | | ([facility]) | | | Staff | Malignancies at [facility] | | | | | | [address] | | | | | | [address] Mailcode: | | | | | | [facility] [place] | | | | | | [place], | | | | | | [place] [address] | | | | | | [phone] | | | +--------+ + + + [...] Rd | | | | | | [place], [place] | | | | | | [address] | | | | | | [phone] | | | | | | | [...] [facility]) | results section. 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 | [place], [place] | | | RUTHIE CARTER OF KRISTA | [address] | [address] | | | TESTS | | | [...] + + + | YESSICA S[facility] | [address] | [place], [place] | | | [facility] POINT OF CARE | [address] | [address] | | | TESTS | | | [...] LABORATORY | [address] | [place] [address] | | | KOLE, INDRA | [address] [...] 2 fold may not reflect true | [facility] | | biological changes and must [...] | | | characteristics determined by the [facility] | | | Molecular Diagnostic Center. It has not been cleared or approved by | | | the Food and Drug Administration. FDA approval is not required for | | | clinical use of this test, and therefore validation was done as | | | required under the requirements of the Clinical Laboratory Improvement | | | Act of 1988. The [facility] | | | Diagnostic Center is a fully licensed and/or accredited clinical | | | laboratory under CLIA, CAP, and the [facility]. | | + + + + + + + + | Performing | Address | City/State/Zipcode | Phone Number | | Organization | | | | + + + + + | [facility] | [address] | [place] [address] | | | DIAGNOSTIC | [address] [...]
--- OUTSIDE RECORDS SUMMARY | ~2019-05-17 | XMS | Encounter Summary ---
Demographics + + + | Address | [address] | | | [place] [address] | + + + | Home Phone [...] Team Providers + +------+ + | Care Drying Oven Tender Name | Role | Phone | + +------+ + | Zayda Hinton | PCP | | + +------+ + Encounter Details +--------+ + + + + | Date | Type | Department | Care Team | Description | +--------+ + + + + | 09/21/ | Pharmacy | Specialty Pharmacy | | | | 2015 | Visit | Services [address] | | | | | | [address] | | | | | | [place], [place] | | | | | | [address] | | | | | | [phone] | | | +--------+ + + + [...] Rd | | | | | | [place], [place] | | | | | | [address] | | | | | | [phone] | | | | | | | | +--------+---------+ + + + documented as of this encounter Visit Diagnoses Not on filedocumented in this encounter"
--- OUTSIDE RECORDS SUMMARY | ~2019-05-17 | XMS | Encounter Summary ---
Demographics + + + | Address | [address] | | | [place] [address] | + + + | Home Phone [...] Team Providers + +------+ + | Care Pressing Machine Operator Name | Role | Phone [...] Rd | | | | | | [place], [place] | | | | | | [address] | | | | | | [phone] | | | | | | | | +--------+---------+ + + + documented as of this encounter Visit Diagnoses Not on filedocumented in this encounter"
--- OUTSIDE RECORDS SUMMARY | ~2019-05-17 | XMS | Encounter Summary ---
Demographics + + + | Address | [address] | | | [place] [address] | + + + | Home Phone [...] Providers + +------+ + | Care Professional Nursing Assistant Name | Role | Phone | [...] | | | | | remission | [address] | [place] | | | | | | Phone: | Pavilion | | | | | Procedures | [phone] | [place], [place] | | | | | Post BMT | Fax: | [address] | | | | | Auth to | [phone] | Phone: | | | | | included | | [phone] | | | | | facility, | | Fax: | | | | | diagnostics, | | [phone] | | | | | office | [...] 2017 | Visit | Hematologic | [address] [facility] | marrow transplant | | | | Malignancies at | [facility] | (HCC) (Primary Dx) | | | | [facility] | [place], [place] | | | | | [address] [facility] | [address] | | | | | [facility] Mailcode: | [phone] | | | | | [facility] [place] | | | | | | Pavilion [place], | | | | | | [place] [address] | | | | | | [phone] | | | +--------+---------+ + + + [...] Donor: MMURD (DPB1 permissive antigen mismatch, male, [id number]) Identifying Data: Khurram Kelly is a 26 [...] his L ankle. 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 He's happy about being out o f [...] 0.5 mL intramuscular ON CE Aspen Cummins, [place] hepatitis A-hepatitis B vaccine (TWINRIX) injection 1 mL 1 mL intramuscular ONCE Aspen Cummins, EXTRACTOR LOADER AND UNLOADER human papillomavirus vaccine (9-valent) (GARDASIL 9) injection 0.5 mL 0.5 mL intramusc ular ONCE sApen Cummins, EXTRACTOR LOADER AND UNLOADER poliovirus vaccine (inactivated) (IPOL) injection 0.5 mL 0.5 mL subcutaneous ONCE Ruth Cummins, EXTRACTOR LOADER AND UNLOADER tetanus-diphtheria toxoids (adult) (TENIVAC,DECAVAC,Td) injection 0.5 mL 0.5 mL intram uscular ONCE Aspen Cummins, EXTRACTOR LOADER AND UNLOADER No Known Allergies Filed Vitals: 06/18/2017 1:13 [...] indicated providing peripheral counts remain stable 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 He initially responded but flared during taper. He also developed low-level nausea and abd discomfort concerning for GvHD, emp irically treated with oral non-absorbables with resolution. - He had tapered prednisone to 10 mg po daily when he developed a rash for which he was see n in the ED in [place] in late 01/21. Prednisone was increased back [...] Dr. Jeffers on 04/02/17; per pt report, [facility] may be a hairline fracture [...] [facility] [address] Mailcode: [facility] [address] documented in this enc ounter [...] | | | 2018 | Visit | [facility] | [address] [place] [address] | | | | | | [facility] | | | | | | [place], [place] | | | | | | [address] | | | | | | [phone] | | | | | | | [...] + + + | Y[facility]ICA S[facility] | [address] | [place], [place] | | | RUTHIE CARTER OF [facility] | [address] | [address] | | | TESTS | | | [...] + | [facility] - | [address] | [place] [address] | | | [place] | | | [...] + + + + + | [facility] | [address] | [place] [address] | | | SERVICES, CORE | PARK [...] + + + + + | [facility] | [address] | [place] [address] | | | INDRA SHARIF | [address] [...] | + + + + + | [facility] | [address] | [place] [address] | | | KOLE, INDRA | PARK [...] | + + + + + | [facility] | [address] | [place] [address] | | | SERVICES, INDRA | [address] [...] | + + + + + | [facility] | [address] | [place] [address] | | | SERVICES, CORE | [address] [...]
--- OUTSIDE RECORDS SUMMARY | ~2019-05-17 | XMS | Encounter Summary ---
Demographics + + + | Address | [address] | | | [place] [address] | + + + | Home Phone [...] Providers + +------+ + | Care Acting Manager Name | Role | Phone | [...] | Encounter | Hematologic | [place] [address] [facility] | Test | | | | Malignancies at | [address] | | | | | [facility] | [place], [place] | | | | | [address] | [address] | | | | | Debi Burger Mailcode: | | | | | | [facility] [place] | | | | | | Pavilion [place], | | | | | | [place] [address] | | | | | | [phone] | | | +--------+ + + + [...] Rd | | | | | | [place], [place] | | | | | | [address] | | | | | | [phone] | | | | | | | | +--------+---------+ + + + documented as of this encounter Visit Diagnoses Not on filedocumented in this encounter"
--- OUTSIDE RECORDS SUMMARY | ~2019-05-17 | XMS | Encounter Summary ---
Demographics + + + | Address | [address] | | | [place] [address] | + + + | Home Phone [...] Providers + +------+ + | Care Software Design Analyst Name | Role | Phone | + +------+ + | Pending Pcp Addition | PCP | Unavailable | + +------+ + Reason for Visit +--------+ + | Reason | Comments | +--------+ + | Nausea | | +--------+ + Encounter Details +--------+ + + + + | Date | Type | Department | Care Team | Description | +--------+ + + + + | 05/26/ | Telephone | Center for | Yari Garcia MD | Nausea | | 2016 | | Hematologic | [address] | | | | | Malignancies at | [address] | | | | | [facility] | [place], [place] | | | | | [address] | [address] | | | | | Debi Burger Mailcode: | [phone] | | | | | [facility] | | | | | | [place], | | | | | | [place] [address] | | | | | | [phone] | | | +--------+ + + + [...] Rd | | | | | | [place] | | | | | | [address] | | | | | | [phone] | | | | | | | | +--------+---------+ + + + documented as of this encounter Visit Diagnoses Not on filedocumented in this encounter"
--- OUTSIDE RECORDS SUMMARY | ~2019-05-17 | XMS | Encounter Summary ---
Demographics + + + | Address | [address] | | | [place] [address] | + + + | Home Phone [...] Team Providers + +------+ + | Care Repairer Typewriter Name | Role | Phone | + [...] | | | | | remission | [address] | [facility] | | | | | Procedures | Phone: | [place] | | | | | [place] | [phone] | Pavilion | | | | | AZACITIDINE | Fax: | [place], [place] | | | | | INJECTION, 1 | [phone] | [address] | | | | | [place] | | Phone: | | | | | CHM,IV | | [phone] | | | | | INFSN,1 HR | | Fax: | | | | | [place] CHM,IV | | [phone] | | | | | INFSN,ADDL | [...] | | | | | | [place], | | | | | | [place] [address] | | | | | | [phone] | | | +--------+ + + + [...] Rd | | | | | | [place], [place] | | | | | | [address] | | | | | | [phone] | | | | | | | [...]
--- OUTSIDE RECORDS SUMMARY | ~2019-05-17 | XMS | Encounter Summary ---
Demographics + + + | Address | [address] | | | [place] [address] | + + + | Home Phone [...] Team Providers + +------+ + | Care Incinerator Attendant Name | Role | Phone | + +------+ + | Zayda Hinton | PCP | | + +------+ + Encounter Details +--------+ + + + + | Date | Type | Department | Care Team | Description | +--------+ + + + + | 03/13/ | Pharmacy | Specialty Pharmacy | | | | 2015 | Visit | Services [address] | | | | | | [address] | | | | | | [place], [place] | | | | | | [address] | | | | | | [phone] | | | +--------+ + + + [...] Rd | | | | | | [place], [place] | | | | | | [address] | | | | | | [phone] | | | | | | | | +--------+---------+ + + + documented as of this encounter Visit Diagnoses Not on filedocumented in this encounter"
--- OUTSIDE RECORDS SUMMARY | ~2019-05-17 | XMS | Encounter Summary ---
Demographics + + + | Address | [address] | | | [place] [address] | + + + | Home Phone [...] Providers + +------+ + | Care Drafter Engineering Name | Role | Phone | + [...] [address] | | | | | | [place], [place] | | | | | | [address] | | | | | | [phone] | | | +--------+ + + + [...] | [address] [facility] | | | | | | [address] | | | | | | [place], [place] | | | | | | [address] | | | | | | [phone] | | | | | | | | +--------+---------+ + + + documented as of this encounter Visit Diagnoses Not on filedocumented in this encounter"
--- OUTSIDE RECORDS SUMMARY | ~2019-05-17 | XMS | Encounter Summary ---
Demographics + + + | Address | [address] | | | [place] [address] | + + + | Home Phone [...] Team Providers + +------+ + | Care Check Out Clerk Name | Role | Phone | [...] | ic leukemia, | [address] | [facility] | | | | | not having | [address] | [address] | | | | | achieved | [place], [place] | Rd Mailcode: | | | | | remission | [address] | [id number] | | | | | Procedures | Phone: | [place] | | | | | [place] | [phone] | Pavilion | | | | | AZACITIDINE | Fax: | [place], [place] | | | | | INJECTION, 1 | [phone] | [address] | | | | | [place] | | Phone: | | | | | CHM,IV | | [phone] | | | | | INFSN,1 HR | | Fax: | | | | | [place] CHM,IV | | [phone] | | | | | INFSN,ADDL | [...] | | | | | | [place], | | | | | | [place] [address] | | | | | | [phone] | | | +--------+ + + + [...] Rd | | | | | | [place], [place] | | | | | | [address] | | | | | | [phone] | | | | | | | [...] | | PDT | transplant ([facility]) | results section. 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 | [place], [place] | | | [facility] POINT OF CARE | [address] | [address] | | | TESTS | | | [...]
--- OUTSIDE RECORDS SUMMARY | ~2019-05-17 | XMS | Encounter Summary ---
Demographics + + + | Address | [address] | | | [place] [address] | + + + | Home Phone [...] Team Providers + +------+ + | Care Trapeze Performer Name | Role | Phone | [...] | | | | Christian Barry | [place], [place] | | | | | [address] | [address] | | | | | Debi Burger Mailcode: | [phone] | | | | | [facility] | | | | | | [place], | | | | | | [place] [address] | | | | | | [phone] | | | +--------+--------+ + + + [...] Rd | | | | | | [place] | | | | | | [address] | | | | | | [phone] | | | | | | | | +--------+---------+ + + + documented as of this encounter Visit Diagnoses Not on filedocumented in this encounter"
--- OUTSIDE RECORDS SUMMARY | ~2019-05-17 | XMS | Encounter Summary ---
Demographics + + + | Address | [address] | | | [place] [address] | + + + | Home Phone [...] Providers + +------+ + | Care Solar Sales Representative Name | Role | Phone | + +------+ + | Pending Pcp Addition | PCP | Unavailable | + +------+ + Encounter Details +--------+ + + + + | Date | Type | Department | Care Team | Description | +--------+ + + + + | 08/17/ | Plant Operator | Center for | Yari Garcia MD | | | 2016 | | Hematologic | [address] | | | | | Malignancies at | [address] | | | | | Christian Barry | [place], [place] | | | | | [address] | [address] | | | | | Debi Burger Mailcode: | [phone] | | | | | [facility] | | | | | | [place], | | | | | | [place] [address] | | | | | | [phone] | | | +--------+ + + + [...] Rd | | | | | | [place], [place] | | | | | | [address] | | | | | | [phone] | | | | | | | | +--------+---------+ + + + documented as of this encounter Visit Diagnoses Not on filedocumented in this encounter"
--- OUTSIDE RECORDS SUMMARY | ~2019-05-17 | XMS | Encounter Summary ---
Demographics + + + | Address | [address] | | | [place] [address] | + + + | Home Phone [...] Team Providers + +------+ + | Care Tumbler Machine Operator Helper Name | Role | Phone | + +------+ + | Zayda Hinton | PCP | | + +------+ + Encounter Details +--------+ + + + + | Date | Type | Department | Care Team | Description | +--------+ + + + + | 12/09/ | Anesthesia | Preoperative | Tonya Nation | | | 2019 | Event | [facility] | MD Mya [address] | | | | | [facility] | [address] | | | | | [address] | [place] [address] | | | | | Mail Code: [id number] | [phone] | | | | | [facility] | | | | | | and Healing, | | | | | | Building [address] | | | | | | [place], [place] | | | | | | [address] | | | | | | [phone] | | | +--------+ + + + [...] Rd | | | | | | [place], [place] | | | | | | [address] | | | | | | [phone] | | | | | | | | +--------+---------+ + + + documented as of this encounter Visit Diagnoses Not on filedocumented in this encounter"
--- OUTSIDE RECORDS SUMMARY | ~2019-05-17 | XMS | Encounter Summary ---
Demographics + + + | Address | [address] | | | [place] [address] | + + + | Home Phone [...] Team Providers + +------+ + | Care Microbiological Analyst Name | Role | Phone | [...] | | Malignancies at | Debi [address] [place], | blurry and double | | | | [facility] | [place] [address] | vision); Insomnia; | | | | [address] | [phone] | Sore throat | | | | Debi Burger Mailcode: | | (Angela); COLD; | | | | [facility] | | Cough; Runny Nose | | | | [facility] [place], | | | | | | [place] [address] | | | | | | [phone] | | | +--------+ + + + [...] Rd | | | | | | [place], [place] | | | | | | [address] | | | | | | [phone] | | | | | | | | +--------+---------+ + + + documented as of this encounter Visit Diagnoses Not on filedocumented in this encounter"
--- OUTSIDE RECORDS SUMMARY | ~2019-05-17 | XMS | Encounter Summary ---
Demographics + + + | Address | [address] | | | [place] [address] | + + + | Home Phone [...] Team Providers + +------+ + | Care Wash Driller Name | Role | Phone | + [...] | | | Debi Burger Mailcode: | [place], [place] | | | | | [address] | [address] | | | | | [address] | [phone] | | | | | [place], [place] | | | | | | [address] | | | | | | [phone] | | | +--------+ + + + [...] Rd | | | | | | [place], [place] | | | | | | [address] | | | | | | [phone] | | | | | | | | +--------+---------+ + + + documented as of this encounter Visit Diagnoses Not on filedocumented in this encounter"
--- OUTSIDE RECORDS SUMMARY | ~2019-05-17 | XMS | Encounter Summary ---
Demographics + + + | Address | [address] | | | [place] [address] | + + + | Home Phone [...] Team Providers + +------+ + | Care Analog Circuit Designer Name | Role | Phone | [...] | | | | | | [place], | | | | | | | [place] | | | | | | | [address] | | | | | | | Phone: | | | | | | | [phone] | | | | | | | Fax: | | | | | | | [phone] | +--------+--------+ + + + + Encounter [...] | | | | Christian Barry | [place], [place] | | | | | [address] | [address] | | | | | Debi Burger Mailcode: | [phone] | | | | | [facility] | | | | | | [place], | | | | | | [place] [address] | | | | | | [phone] | | | +--------+---------+ + + + [...] + + + | Blood Pressure | 135/85 | 05/15/2016 9:52 AM | | | | | PST | | + + + + + | Pulse | 71 | 05/15/2016 9:52 AM | | | | | PST | | + + + + + | Temperature | 37.2 C (98.9 F) | 05/15/2016 9:52 AM | | | | | PST | | + + + + + | Respiratory Rate | 16 | 05/15/2016 9:52 AM | | | | | PST | | + + + + + | Oxygen Saturation | 98% | 05/15/2016 9:52 AM | | | | | PST | | + + + + + | Inhaled Oxygen | - | - | | | Concentration | | | | + + + + + | Weight | 95.1 kg (209 lb 11.2 | 05/15/2016 9:52 AM | | | | oz) | PST | | + + + + + | Height | - | - | | + + + + + | Body Mass Index | 26.63 | 01/25/2016 8:24 AM | | | | | PDT | | + + + + + documented in this encounter Patient Instructions Patient Instructions Yari Garcia MD - 05/15/2016 10:35 AM PSTFormatting of this note mi ght be different from the original. Khurram- Your blood counts are great. 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 We will increase your prednisone to 5 mg daily. Continue the tacrolimus at the same dose. Use the triamcinolone on your chest, and the hydrocortisone on your face. If the rash is spreading quickly, call us as we may need to go up on the prednisone and tac rolimus. If you are having diarrhea, call us. Avoid tylenol and alcohol. We will need to see you back next week to check on the liver and the rash. Diagnostic Visit on 05/15/2016 Component Date Value WBC POC 05/15/2016 7.4 RBC POC 05/15/2016 4.40* HGB POC 05/15/2016 14.9 HCT POC 05/15/2016 43.7 MCV POC 05/15/2016 99.3* MCH POC 05/15/2016 33.9* MCHC POC 05/15/2016 34.1 RDW SD, POC 05/15/2016 47.1* PLT POC 05/15/2016 190 MPV POC 05/15/2016 8.0* NEUTROPHIL% POC 05/15/2016 49.7* LYMPH% POC 05/15/2016 35.2 MONO %, POC 05/15/2016 11.0* EOS %, POC 05/15/2016 3.8* BASO %, POC 05/15/2016 0.3 NEUTROPHIL# POC 05/15/2016 3.6 LYMPH# POC 05/15/2016 2.6 MONO #, POC 05/15/2016 0.8 EOS #, POC 05/15/2016 0.3 BASO #, POC 05/15/2016 0.0 CBC COMMENT, POC 05/15/2016 Imm Gran. SODIUM, POC 05/15/2016 135 POTASSIUM, POC 05/15/2016 4.1 TOTAL CO2, POC 05/15/2016 23 CHLORIDE, POC 05/15/2016 103 GLUCOSE, POC 05/15/2016 96 CALCIUM TOTAL, POC 05/15/2016 9.5 BUN, POC 05/15/2016 17 CREATININE, POC 05/15/2016 0.8 LDH, POC 05/15/2016 362* MAGNESIUM, POC 05/15/2016 2.0 ALBUMIN, PLASMA (LAB) 05/15/2016 4.0 BILIRUBIN TOTAL 05/15/2016 0.3 BILIRUBIN DIRECT 05/15/2016 <0.1 ALK PHOS 05/15/2016 123 AST(SGOT) 05/15/2016 75* ALT (SGPT) 05/15/2016 166* TOTAL PROTEIN, PLASMA (L* 05/15/2016 7.7 AST CMNT 05/15/2016 No Hemo BILI T CMNT 05/15/2016 No Hemo BILI D CMNT 05/15/2016 No Hemo documented in this encounter Progress Notes Ari Howard MD - 05/15/2016 11:05 AM PST 263 days post transplant 05/15/2016 [facility] Primary [facility] MD: Yari Garcia MD Primary Oncologist: Yari Garcia MD Diagnosis: AMML, primary refractory Transplant Date: 08/27/15 Donor: MM URD (DPB1 permissive antigen mismatch, male, [id number]) Identifying Data: Khurram Kelly is a 25 [...] his L ankle. He was evaluated at [facility] ED on 06/[address] angiogram [...] CD34, variable CD56, variable CD117, and dim [id number] mickey; promonocyte immunophenotype (70% by flow): CD11b, [...] flared durin g taper. He is currently 263 days post transplant s/p transplant, s/p 6 cycles of azacitidine and r eturns to clinic today for scheduled follow-up. Interim History: Khurram has developed a faint maculopapular rash over the anterior aspect of his chest and torso, without extension onto his extremities that he first noticed approximately 1 week ag o. 2 weeks ago his steroid dose was tapered to 5 mg every other day. He denies any GI sympto ms such as nausea, vomting, diarrhea, or constipation. His anxiety continues to be a struggl e for him but he and his have been talking through his anxiety spells which has helped. He plans to meet with transitions after the holiday season. He recently travelled back home to [place], [place] to see his family over the hall weekend. His family has been having v iral URI type symptoms, and he has been using robitussin syrup to alleviate some symptoms he has been having as well. He denies any fevers or chills at this time. He is pleased to know that his blood counts look stable. Khurram has been taking all of his prescribed medicatio ns. Review of Systems Constitutional: Negative for fever, chills and malaise/fatigue. HENT: Negative for headaches, congestion and sore throat. Respiratory: Negative for cough and shortness of breath. Cardiovascular: Negative for chest pain and leg swelling. Gastrointestinal: Negative for nausea, vomiting, abdominal pain and diarrhea. Genitourinary: Negative for dysuria. Musculoskeletal: Negative for myalgias and joint pain. Skin: Positive for rash. Neurological: Negative for dizziness, tingling, [...] for dresssing change per pt. Filed Vitals: 05/15/2016 9:52 AM Weight: 95.119 kg (209 lb 11.2 oz) BP: 135/85 Pulse: 71 Temp: 37.2 C (98.9 F) TempSrc: Oral Resp: 16 SpO2: 98% PainSc: 0 - Zero BMI: 26.63 kg/(m^2) Physical Exam Constitutional: He is well-developed, [...] Skin is warm and dry. Rash (faint erythematous, maculopapular- over chest and anterio r upper torso.) noted. Psychiatric: Mood and affect normal. Vitals reviewed. Lab Results Component Value Date WBC 7.4 05/15/2016 HB 14.9 05/15/2016 HCT 43.7 05/15/2016 PLT 190 05/15/2016 MCV 99.3 05/15/2016 RDW 44.9 05/01/2016 Lab Results Component Value Date BICARB 23 05/15/2016 TBILI 0.3 05/15/2016 CA 9.5 05/15/2016 CL 103 05/15/2016 CR 0.8 05/15/2016 GLU 96 05/15/2016 AP 123 05/15/2016 TP 7.7 05/15/2016 BUN 17 05/15/2016 ALB 4.0 05/15/2016 AST 75* 05/15/2016 NA 135 05/15/2016 K 4.1 05/15/2016 ALT 166* 05/15/2016 Assessment/Plan: 1. 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 Peripheral blood counts WNL with no evidence of disease by perip heral smear. His most recent marrow studies completed 11/22/15 showed a hypocellular marrow ( patchy 15%) with trilineage hematopoiesis and no morphologic and immunologic evidence of acu te leukemia. Karyotype 46,XY[19]. VNTR showed no detectable host cells. 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 Prednisone was increased back [...] Also c ontinues low dose tacrolimus, budesonide. His dose was reduced to 5mg every other day on , and approximately 1 week later he developed the rash noted above. 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 --> Increase prednisone to 5 mg daily. Apply topical triamcinolone over affected area BID-Q ID PRN. --> continue tacrolimus 0.5 mg bid without additional taper --> continue budesonide BID 3. Infectious [...] py. --> continue acyclovir and bactrim --> encouraged good hand hygiene and advised to stay away from sick contacts if at all poss ible. --> due to CMV reactivation prior to day +100, continue to monitor PCRs q2 weeks through da y +270 --> repeat immune reconstitution panel at day +270 and d/c bactrim if CD4 count > 300 Lab Results Component Value Date CMVQUANTPCR Undetected 05/01/2016 CMVQUANTPCR Undetected 04/19/2016 CMVQUANTPCR Undetected 04/12/2016 CMVQUANTPCR Undetected 04/03/2016 4. Fluid, Electrolyte and Nutrition: Appetite is [...] waiting to return from his trip to [place] to contact [facility] for an appt. Now, waiting to for after the holidays to ontact transitions for appointment. --> continue current meds --> encouraged pt to contact [facility] to schedule appt --> again encouraged pt to engage with [facility] to establish peer support or AYA support gr oup resources available at [facility] --> consideration of SSRI if continues to have significant anxiety affecting quality of lif e. 7. Follow up --> RTC 05/22 for labs. [facility] AT [address] Mailcode: [place] [phone] Yari Moore M D - 05/15/2016 9:55 AM PST05/15/16 I have seen and evaluated the patient in a separate visit from the resident physician Dr. Daron Howard and agree with history, physical, assessment and plan as documented in his n ote of today's date with the below qualifications. Khurram is a 25 yo man currently 9 months sp allo transplant for treatment of primary refr actory AML, currently s/p 6 cycles of post-transplant azacytidine who comes in today with a faint rash over his chest and anxiety about recent end of treatment bone marrow biopsy resul ts. ROS significant for new rash on upper chest, difficulty with anxiety management. No diarrh ea. No nausea/vomiting. Rash on chest is faint, maculopapular and covers about 20% of his anterior chest BSA. No o ther sites of involvement. Labs significant for increasing transaminitis. Bone marrow biopsy from 04/1216 demonstrates a patchy hypocellular marrow with 5-50% cellul arity and myeloid blasts < 3%. Cytogenetics are normal male. 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 Chi merism studies are 100% donor. Plan --> increase prednisone to 5 mg daily --> tacrolimus dosing to remain stable (goal 5-10) --> close monitoring of rash, if progresses, may biopsy and increase steroid dosing. --> RTC in 1 week --> refilled xanax - recommended counseling - again. Yari Garcia MD, MS Boatswains Materiveting machine operator automatic [facility] [address] [place] [address] documented in this enc ounter Plan of [...] Rd | | | | | | [place], [place] | | | | | | [address] | | | | | | [phone] | | | | | | | | +--------+---------+ + + + documented as of this encounter Visit Diagnoses + + | Diagnosis | + + | 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
--- OUTSIDE RECORDS SUMMARY | ~2019-05-17 | XMS | Encounter Summary ---
Demographics + + + | Address | [address] | | | [place] [address] | + + + | Home Phone [...] Team Providers + +------+ + | Care Preschool Assistant Principal Name | Role | Phone | + [...] | | | Debi Burger Mailcode: | [place], [place] | | | | | [address] | [address] | | | | | [address] | [phone] | | | | | [place], [place] | | | | | | [address] | | | | | | [phone] | | | +--------+ + + + [...] Rd | | | | | | [place], [place] | | | | | | [address] | | | | | | [phone] | | | | | | | | +--------+---------+ + + + documented as of this encounter Visit Diagnoses Not on filedocumented in this encounter"
--- OUTSIDE RECORDS SUMMARY | ~2019-05-17 | XMS | Encounter Summary ---
Demographics + + + | Address | [address] | | | [place] [address] | + + + | Home Phone [...] Providers + +------+ + | Care Environmental Conservation Officer Name | Role | Phone | [...] | | | | | Debi Burger [place], | [place], [place] | | | | | [place] [address] | [address] | | | | | | [phone] | | | | | | | [...] Rd | | | | | | [place], [place] | | | | | | [address] | | | | | | [phone] | | | | | | | [...] + + | [facility] - | [address] | [place] [address] | | | IMMUNOGENETICS/TRANS | [address] [...] [facility] - | [address] | [place] [address] | | | IMMUNOGENETICS/TRANS | [address] [...] [facility] - | [address] | [place] [address] | | | IMMUNOGENETICS/TRANS | [address] [...]
--- OUTSIDE RECORDS SUMMARY | ~2019-05-17 | XMS | Encounter Summary ---
Demographics + + + | Address | [address] | | | [place] [address] | + + + | Home Phone [...] Team Providers + +------+ + | Care Elementary Supervisor Name | Role | Phone | [...] | | | | | | [place], | | | | | | | [place] | | | | | | | [address] | | | | | | | Phone: | | | | | | | [phone] | | | | | | | Fax: | | | | | | | [phone] | +--------+--------+ + + + + Encounter [...] | | | | Christian Barry | [place], [place] | | | | | [address] | [address] | | | | | Debi [address] Mailcode: | [phone] | | | | | [facility] | | | | | | [place], | | | | | | [place] [address] | | | | | | [phone] | | | +--------+---------+ + + + [...] MM URD (DPB1 permissive antigen mismatch, male, [id number]) Identifying Data: Khurram Kelly is a 25 [...] his L ankle. He was evaluated at [facility] ED on 06/[address] [...] acute myelomonocytic leukemia. He was referred to [facility] for further evaluation and man agement of his newly dx'd AML. Pt was admitted to [facility] on 05/26/15. Peripheral blood was [...] CD34, variable CD56, variable CD117, and dim [id number] mickey; promonocyte immunophenotype (70% by flow): CD11b, [...] season. He recently travelled back home to [place], [place] to see his family over the [...] of donor origin). --> CBC Qweekly 2. Ejbie-hv-Wrar Disease: Skin bx due to mild rash [...] he was seen in the ED in [place] in late 01/21. Prednisone was increased back [...] waiting to return from his trip to [place] to contact [facility] for an appt. Now, waiting to for after the holidays to ontact [facility] for appointment. --> continue current meds --> encouraged pt to contact [facility] to schedule appt --> again encouraged pt to engage with [facility] to establish peer support or AYA support gr oup resources available at [facility] --> consideration of SSRI if continues to have significant anxiety affecting quality of lif e. 7. Follow up --> RTC 05/22 for labs. [facility] AT [address] Mailcode: [place] [phone] Yari Moore M D - 05/15/2016 9:55 [...] counseling - again. Yari Garcia MD, MS Dental Aidecertified surgical tech/first assistant [facility] [address] [place] [address] documented in this enc ounter Plan of [...] [place] | | | | | | [address] | | | | | | [phone] | | | | | | | | +--------+---------+ + + + documented as of this encounter Visit Diagnoses + + | Diagnosis | + + | 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
--- OUTSIDE RECORDS SUMMARY | ~2019-05-17 | XMS | Encounter Summary ---
Demographics + + + | Address | [address] | | | [place] [address] | + + + | Home Phone [...] Team Providers + +------+ + | Care Integration Architect Name | Role | Phone | [...] | | | | | | | [address] | | | | | | | [address] | | | | | | | [place], | | | | | | | [place] | | | | | | | [address] | | | | | | | Phone: | | | | | | | [phone] | | | | | | | Fax: | | | | | | | [phone] | +--------+--------+ + + + + Encounter Details +--------+ + + + + | Date | Type | Department | Care Team | Description | +--------+ + + + + | 02/15/ | Clinical | Center [facility] | | Schedule labs | | 2016 | Support | Hematologic | | (Trifusion); | | | Staff | Malignancies at [facility] | | Follow-up visit | | | | [address] | | ([place]); | | | | [address] Mailcode: | | Dressing change | | | | [address] | | (Trifusion); | | | | [place], | | Intravenous infusion | | | | [place] [address] | | (magnesium) | | | | [phone] | | | +--------+ + + + [...] Rd | | | | | | [place], [place] | | | | | | [address] | | | | | | [phone] | | | | | | | [...] [place] | [address] | [place], [place] | | | RUTHIE CARTER OF KRISTA | [facility] | [address] | | | TESTS | | | [...] | [address] | [place], [place] | | | [facility] POINT OF CARE | [address] | [address] | | | TESTS | | | [...] | + + + + + | [facility] | [address] | [place] [address] | | | SERVICES, CORE | W[place] [...] | | | characteristics determined by the [facility][1] | | | [facility]. It has not been cleared or approved by | | | the Food and Drug Administration. FDA approval is not required for | | | clinical use of this test, and therefore validation was done as | | | required under the requirements of the Clinical Laboratory Improvement | | | Act of 1988. The [facility][1] Molecular | | | Diagnostic Center is a fully licensed and/or accredited clinical | | | laboratory under CLIA, [facility], and the [facility]. | | + + + + + + + + | Performing | Address | City/State/[facility] | Phone Number | | Organization | | | | + + + + + | [facility] | [address] | [place] [address] | | | DIAGNOSTIC | [address] [...]
--- OUTSIDE RECORDS SUMMARY | ~2019-05-17 | XMS | Encounter Summary ---
Demographics + + + | Address | [address] | | | [place] [address] | + + + | Home Phone [...] Team Providers + +------+ + | Care Decorating Machine Operator Name | Role | Phone [...] | | | | | | [place], | | | | | | | [place] | | | | | | | [address] | | | | | | | Phone: | | | | | | | [phone] | | | | | | | Fax: | | | | | | | [phone] | +--------+--------+ + + + + Encounter [...] | | | | | | [facility] [address] | | | | | | [place], | | | | | | [place] [address] | | | | | | [phone] | | | +--------+ + + + [...] Rd | | | | | | [place], [place] | | | | | | [address] | | | | | | [phone] | | | | | | | [...] | LEUKOREDUCED | | PST | ([facility]LY [facility]) | results section. | + +--------+ + + + | PRODUCT - RED CELLS | Routin | 07/17/2015 | Acute myeloid | Results for this | | LEUKOREDUCED | e | 8:41 AM | leukemia (AML), M4 | procedure are in the | | | | PST | ([facility]) | results section. | + +--------+ + + + | CBC AND AUTO DIFF | Urgent | 07/17/2015 | Acute myeloid | Results for this | | | | 8:33 AM | leukemia (AML), M4 | procedure are in the | | | | PST | ([facility]) | results section. | + +--------+ + + + | MANUAL DIFFERENTIAL | Routin | 07/17/2015 | Acute myeloid | Results for this | | | e | 8:33 AM | leukemia (AML), M4 | procedure are in the | | | | PST | ([facility]) | results section. | + +--------+ + + + | CBC, WITH | Urgent | 07/17/2015 | Acute myeloid | Results for this | | DIFFERENTIAL | | 8:33 AM | leukemia (AML), M4 | procedure are in the | | | | PST | ([facility]) | results section. | + +--------+ + + + | CMP, POC (BMP+LFT) | Routin | 07/17/2015 | Acute myeloid | Results for this | | | e | 8:19 AM | leukemia (AML), M4 | procedure are in the | | | | PST | ([facility]) | results section. | + +--------+ + + + | ANTIBODY SCREEN | Routin | 07/17/2015 | Acute myeloid | Results for this | | | e | 7:59 AM | leukemia (AML), M4 | procedure are in the | | | | PST | ([facility]) | results section. | + +--------+ + + + | TYPE AND SCREEN | Routin | 07/17/2015 | Acute myeloid | Results for this | | | e | 7:59 AM | leukemia (AML), M4 | procedure are in the | | | | PST | ([facility]) | results section. | + +--------+ + [...] | | | | PST | ([facility]) | | + +--------+ + + + | TREATMENT PARAMETERS | Routin | 07/17/2015 | Acute myeloid | | | #2 - BEACON | e | 7:58 AM | leukemia (AML), M4 | | | | | PST | ([facility]) | | + +--------+ + + + [...] | | | | PST | ([facility]) | | + +--------+ + + + | LDH TOTAL, PLASMA | Routin | 07/17/2015 | Acute myeloid | Results for this | | | e | 7:58 AM | leukemia (AML), M4 | procedure are in the | | | | PST | ([facility]) | results section. | + +--------+ + [...] + + + + | PRODUCT | [id number] | | [facility] | | | UNIT [...] + + + + | EXPIRATION | [id number] | | [facility] | | | DATE [...] + + + + | BLOOD | [id number] | | [facility] | | | PRODUCT [...] [facility] | [address] | [place] [address] | | | PATHOLOGY | [address] [...] + + + + | PRODUCT | [id number] | | [facility] | | | UNIT [...] + + + + | EXPIRATION | [id number] | | [facility] | | | DATE [...] + + + + | BLOOD | [id number] | | [facility] | | | PRODUCT [...] + + | [facility] | [address] | [place] [address] | | | PATHOLOGY | [address] [...] [facility] | [address] | [place] [address] | | | INDRA SHARIF | WALLY [...] + | [facility] | [address] | [place] [address] | | | KOLE, INDRA | WALLY [...] ABELARDOAM | [address] | [place], [place] | | | RUTHIE CARTER OF CARE | [address] | [address] | | | TESTS | | | [...] + | [facility] | [address] | [place] [address] | | | SERVICES, | [address] [...] [facility] | [address] | [place] [address] | | | SERVICES, | [address] [...] YESSICA LOZA | [address] | [place] [address] | | | SERVICES, CORE | WALLY [...]
--- OUTSIDE RECORDS SUMMARY | ~2019-05-17 | XMS | Encounter Summary ---
Demographics + + + | Address | [address] | | | [place] [address] | + + + | Home Phone [...] Providers + +------+ + | Care Dental Office Coordinator Name | Role | Phone | + +------+ + | aZyda Hinton | PCP | | + +------+ + Encounter Details +--------+ + + + + | Date | Type | Department | Care Team | Description | +--------+ + + + + | 11/10/ | Pharmacy | Specialty Pharmacy | | | | 2015 | Visit | Services [address] | | | | | | [address] | | | | | | [place], [place] | | | | | | [address] | | | | | | [phone] | | | +--------+ + + + [...] Rd | | | | | | [place], [place] | | | | | | [address] | | | | | | [phone] | | | | | | | | +--------+---------+ + + + documented as of this encounter Visit Diagnoses Not on filedocumented in this encounter"
--- OUTSIDE RECORDS SUMMARY | ~2019-05-17 | XMS | Encounter Summary ---
Demographics + + + | Address | [address] | | | [place] [address] | + + + | Home Phone [...] Providers + +------+ + | Care Carton Folder Name | Role | Phone | [...] | | | | | remission | [address] | [facility] | | | | | Procedures | Phone: | [place] | | | | | [place] | [phone] | Pavilion | | | | | AZACITIDINE | Fax: | [place], [place] | | | | | INJECTION, 1 | [phone] | [address] | | | | | [place] | | Phone: | | | | | CHM,IV | | [phone] | | | | | INFSN,1 HR | | Fax: | | | | | [place] CHM,IV | | [phone] | | | | | INFSN,ADDL | [...] | | | | | | [place], | | | | | | [place] [address] | | | | | | [phone] | | | +--------+ + + + [...] prescription for Ativan. Patient advised and will picker today or tomorrow. Educated pt to [...] Rd | | | | | | [place], [place] | | | | | | [address] | | | | | | [phone] | | | | | | | [...] [facility] | [address] | [place] [address] | | | SERVICES, CORE | [address] [...]
--- OUTSIDE RECORDS SUMMARY | ~2019-05-17 | XMS | Encounter Summary ---
Demographics + + + | Address | [address] | | | [place] [address] | + + + | Home Phone [...] Team Providers + +------+ + | Care Pulp Cooker Name | Role | Phone | + +------+ + | Zayda Hinton | PCP | | + +------+ + Encounter Details +--------+ + + + + | Date | Type | Department | Care Team | Description | +--------+ + + + + | 02/10/ | Pharmacy | Specialty Pharmacy | | | | 2015 | Visit | Services [address] | | | | | | [address] | | | | | | [place], [place] | | | | | | [address] | | | | | | [phone] | | | +--------+ + + + [...] | | | | | | [place], [place] | | | | | | [address] | | | | | | [phone] | | | | | | | | +--------+---------+ + + + documented as of this encounter Visit Diagnoses Not on filedocumented in this encounter"
--- OUTSIDE RECORDS SUMMARY | ~2019-05-17 | XMS | Encounter Summary ---
Demographics + + + | Address | [address] | | | [place] [address] | + + + | Home Phone [...] Providers + +------+ + | Care Occupational Nurse Name | Role | Phone | [...] | | | | Christian Barry | [place], [place] | | | | | [address] | [address] | | | | | Debi Burger Mailcode: | [phone] | | | | | [facility] | | | | | | [place], | | | | | | [place] [address] | | | | | | [phone] | | | +--------+--------+ + + + [...] Rd | | | | | | [place] | | | | | | [address] | | | | | | [phone] | | | | | | | | +--------+---------+ + + + documented as of this encounter Visit Diagnoses Not on filedocumented in this encounter"
--- OUTSIDE RECORDS SUMMARY | ~2019-05-17 | XMS | Encounter Summary ---
Demographics + + + | Address | [address] | | | [place] [address] | + + + | Home Phone [...] Providers + +------+ + | Care Carton Marker Machine Name | Role | Phone | [...] | 2017 | | Hematologic | [address] [facility] [address] [facility] | | | | | Malignancies at | [address] | | | | | Christian Barry | [place], [place] | | | | | [address] | [address] | | | | | Debi Burger Mailcode: | [phone] | | | | | [facility] | | | | | | [place], | | | | | | [place] [address] | | | | | | [phone] | | | +--------+--------+ + + + [...] Rd | | | | | | [place] | | | | | | [address] | | | | | | [phone] | | | | | | | | +--------+---------+ + + + documented as of this encounter Visit Diagnoses Not on filedocumented in this encounter"
--- OUTSIDE RECORDS SUMMARY | ~2019-05-17 | XMS | Encounter Summary ---
Demographics + + + | Address | [address] | | | [place] [address] | + + + | Home Phone [...] Team Providers + +------+ + | Care Escrow Clerk Name | Role | Phone | + +------+ + | Zayad Hinton | PCP | | + +------+ + Encounter Details +--------+ + + + + | Date | Type | Department | Care Team | Description | +--------+ + + + + | 08/09/ | Pharmacy | Specialty Pharmacy | | | | 2015 | Visit | Services [address] | | | | | | [address] | | | | | | [place], [place] | | | | | | [address] | | | | | | [phone] | | | +--------+ + + + [...] [place] | | | | | | [address] | | | | | | [phone] | | | | | | | | +--------+---------+ + + + documented as of this encounter Visit Diagnoses Not on filedocumented in this encounter"
--- OUTSIDE RECORDS SUMMARY | ~2019-05-17 | XMS | Encounter Summary ---
Demographics + + + | Address | [address] | | | [place] [address] | + + + | Home Phone [...] Providers + +------+ + | Care Poultry And Fish Butcher Name | Role | Phone | + +------+ + | Pending Pcp Addition | PCP | Unavailable | + +------+ + Reason for Visit + + + | Reason | Comments | + + + | Medication | tacrolimus | | Adjustment | | + + + Encounter Details +--------+ + + + + | Date | Type | Department | Care Team | Description | +--------+ + + + + | 11/03/ | Telephone | Center for | Yari Garcia MD | Medication | | 2016 | | Hematologic | [address] | Adjustment | | | | Malignancies at [facility] | [address] | (tacrolimus) | | | | [address] | [place], [place] | | | | | Debi Burger Mailcode: | [address] | | | | | [facility] | [phone] | | | | | [place], | | | | | | [place] [address] | | | | | | [phone] | | | +--------+ + + + [...] | | | | | | [place] | | | | | | [address] | | | | | | [phone] | | | | | | | | +--------+---------+ + + + documented as of this encounter Visit Diagnoses Not on filedocumented in this encounter"
--- OUTSIDE RECORDS SUMMARY | ~2019-05-17 | XMS | Encounter Summary ---
Demographics + + + | Address | [address] | | | [place] [address] | + + + | Home Phone [...] Team Providers + +------+ + | Care Telegraph Office Route Aide Name | Role | Phone | [...] | | | | | cell | [address] | [address] | | | | | transplant | Phone: | Phone: | | | | | ([facility]) S/P | [phone] | [phone] | | | | | allogeneic | Fax: | Fax: | | | | | bone marrow | [phone] | [phone] | | | | | transplant | | | | | | | ([facility]) Red | | | | [...] KCS | | 2019 | Visit | Lead Cornea at | [address] | (keratoconjunctiviti | | | | Dariela [address]rie [address] | s sicca) ([facility]) | | | | [address] | [place], [place] | (Primary Dx); GVHD | | | | Mailcode: [facility] | [address] | (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 host | | | | [facility] [place] | [phone] | disease) ([facility]) | | | | [address] | | | | | | [phone] | | | +--------+---------+ + + + [...] neurologic, endocrine, bleeding/blood disorders, AIDS/HIV, cancer/tumors, arthritis) Mat Worker Attestation: Pati Parisi, performed and reviewed the [...] for re-eval of symptoms MARANDA BAEZ MD [facility] AT [address] Mailcode: [place] [id number] [phone] signed by Maranda Baez MD at 11/20/2018 [...] Rd | | | | | | [place], [place] | | | | | | [address] | | | | | | [phone] | | | | | | | [...] EYE | | PDT | s sicca) ([facility]) | results section. | + +--------+ + + + | PUNCTAL OCCLUSION BY | Routin | 11/18/2018 | [facility]CS | Results for this | | PLUG LOWER- OD - | e | 1:33 PM | (keratoconjunctiviti | procedure are in the | | RIGHT EYE | | PDT | s sicca) ([facility]) | results section. 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
--- OUTSIDE RECORDS SUMMARY | ~2019-05-17 | XMS | Encounter Summary ---
Demographics + + + | Address | [address] | | | [place] [address] | + + + | Home Phone [...] Team Providers + +------+ + | Care Revenue Stamp Clerk Name | Role | Phone | [...] | | | | | achieved | [facility] [place] | [facility] | | | | | remission | [address] | [facility] | | | | | | Phone: | Pavilion | | | | | Procedures | [phone] | [place], [place] | | | | | Post BMT | Fax: | [address] | | | | | Auth to | [phone] | Phone: | | | | | included | | [phone] | | | | | facility, | | Fax: | | | | | diagnostics, | | [phone] | | | | | office | [...] | Visit | Hematologic | PA-C [address] 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 CM with a PMH of pericarditis who was in his [facility] u ntil 03/13/15 (the [...] his L ankle. He was evaluated at [place]'s ED on 06/[address] angiogram negative [...] acute myelomonocytic leukemia. He was referred to [facility] for further evaluation and man agement of his newly dx'd AML. Pt was admitted to [facility] on 05/26/15. Peripheral blood [...] CD34, variable CD56, variable CD117, and dim IF735-ixehl mickey; promonocyte immunophenotype (70% by flow): CD11b, [...] eruption of lymphocyte recovery and early mild xntwk-limvnb-wloe disease. On 09/13, rash in volved ~15% [...] Saunders PA-C [facility] [place] [address] [facility] Mailcode: [place] [address] documented in this encounter Plan [...] Carrera | | | | | | [place], [place] | | | | | | [address] | | | | | | [phone] | | | | | | | [...] [facility] | [address] | [place], [place] | | | RUTHIE CARTER OF KRISTA | [facility] | [address] | | | TESTS | | | [...] [facility] | [address] | [place], [place] | | | [facility] POINT OF CARE | [address] | [address] | | | TESTS | | | [...] [facility] | [address] | [place] [address] | | | SERVICES, SPECIAL | WALLY [...] | [facility] | [address] | [place] [address] | | | SERVICES, CORE | PARK [...] [facility] | [address] | [place] [address] | | | SERVICES, CORE | PARK [...]
--- OUTSIDE RECORDS SUMMARY | ~2019-05-17 | XMS | Encounter Summary ---
Demographics + + + | Address | [address] | | | [place] [address] | + + + | Home Phone [...] + +------+ + | Care Project Management Intern Name | Role | Phone | + +------+ + | Zayda Hinton | PCP | | + +------+ + Encounter Details +--------+ + + + + | Date | Type | Department | Care Team | Description | +--------+ + + + + | 10/31/ | Pharmacy | Specialty Pharmacy | | | | 2015 | Visit | Services [address] | | | | | | [address] | | | | | | [place], [place] | | | | | | [address] | | | | | | [phone] | | | +--------+ + + + [...] Rd | | | | | | [place], [place] | | | | | | [address] | | | | | | [phone] | | | | | | | | +--------+---------+ + + + documented as of this encounter Visit Diagnoses Not on filedocumented in this encounter"
--- OUTSIDE RECORDS SUMMARY | ~2019-05-17 | XMS | Encounter Summary ---
Demographics + + + | Address | [address] | | | [place] [address] | + + + | Home Phone [...] Team Providers + +------+ + | Care Continuous Improvement Intern Name | Role | Phone | [...] | | | | | | | [address] | | | | | | | [address] | | | | | | | [place], | | | | | | | [place] | | | | | | | [address] | | | | | | | Phone: | | | | | | | [phone] | | | | | | | Fax: | | | | | | | [phone] | +--------+--------+ + + + + Encounter [...] | | | | Christian Barry | [place], [place] | GVHD (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 | | | | [address] | [address] | host disease) (HCC) | | | | Debi Burger Mailcode: | [phone] | | | | | [facility] | | | | | | [place], | | | | | | [place] [address] | | | | | | [phone] | | | +--------+---------+ + + + [...] AM PDT 11/03/15 [facility] Physician: Yari Garcia MD Local Oncologist: Yari Garcia MD PCP: Pending Pcp ADDITION Hematologic Malignancy: Primary refractory AML Conditioning regimen: tBuCy Date of transplant: 08/27/2015 (two day 0s) Donor: MM URD (DPB1 permissive antigen mismatch, male, 3841-8151-2) Hematologic History: Khurram Kelly is a 25 [...] CD34, variable CD56, variable CD117, and dim SE288-enfig mickey; promonocyte immunophenotype (70% by flow): CD11b, [...] e 1 mg capsule) in the evening. [place] 0.5 mg capsules for future use. TACROLIMUS 1 MG CAPSULE Take 1 mg (one 1 mg capsule) by mouth in the morning and 1 mg (one 1 mg capsule) in the evening. [place] 0.5 mg capsules for future use. TRIAMCINOLONE [...] affect and judgment normal. Laboratory Results: Clinical Ict Support Technicians on 11/03/2015 Component Date Value WBC POC [...] eruption of lymphocyte recovery and early mild nbwkx-aupimu-otfd disease. On 09/13, rash in volved ~15% [...] weekly provider visits. Yari Garcia MD, MS Gum Makerhorse riding coach or instructor [facility] [address] [place] [address] documented in this enc ounter Plan of [...] Rd | | | | | | [place], [place] | | | | | | [address] | | | | | | [phone] | | | | | | | [...]
--- OUTSIDE RECORDS SUMMARY | ~2019-05-17 | XMS | Encounter Summary ---
Demographics + + + | Address | [address] | | | [place] [address] | + + + | Home Phone [...] Providers + +------+ + | Care Shop Supervisor Name | Role | Phone [...] | | | | | | [place], | | | | | | | [place] | | | | | | | [address] | | | | | | | Phone: | | | | | | | [phone] | | | | | | | Fax: | | | | | | | [phone] | +--------+--------+ + + + + Encounter [...] (Primary Dx) | | | | [facility] | [place], [place] | | | | | [address] | [address] | | | | | [address] Mailcode: | [phone] | | | | | [facility] | | | | | | [place], | | | | | | [place] [address] | | | | | | [phone] | | | +--------+---------+ + + + [...] , please call the Triage nurse at ([phone]) or BMT person on-call ([phone]) after hours. 3. Because you received sedating [...] during the team pause: Roxy Hussein MA; ORLY Giang. Description: Written consent for bone marrow [...] [facility] AT [address] Mailcode: [place] [address] documented in this enc ounter Plan of [...] Carrera | | | | | | [place], [place] | | | | | | [address] | | | | | | [phone] | | | | | | | [...] + +--------+ + + + | MD BONE MARROW ASP | Routin | 08/09/2015 | Acute myeloid | | | SAME DAY BIOPSY | e | 8:25 AM | leukemia (AML), M4 | | | | | PST | (HCC) | | + +--------+ + + + | MD BONE MARROW BX, | Routin | 08/09/2015 [...] | | BM (PP) | | | ([facility]) [...] | ANALYSIS W/ REFLEX | | | ([facility]) | results section. | | FISH (PP) | | | | | + +--------+ + + + | LEUKEMIA/LYMPHOMA | Routin | 08/09/2015 | Acute myeloid | Results for this | | MARKERS - BONE | e | | leukemia (AML), M4 | procedure are in the | | MARROW (PP) | | | ([facility]) | results section. | + +--------+ + + + | LEUKEMIA/LYMPHOMA | Routin | 08/09/2015 | Acute myeloid | Results for this | | MARKERS - BONE | e | | leukemia (AML), M4 | procedure are in the | | MARROW | | | ([facility]) | results section. | + +--------+ + + + | CYTOGENETICS BONE | Routin | 08/09/2015 | Acute myeloid | Results for this | | MARROW CHROMOSOME | e | | leukemia (AML), M4 | procedure are in the | | ANALYSIS W/ REFLEX | | | ([facility]) | results section. | | FISH | | | | | + +--------+ + + + documented in this encounter Results [facility] GENE MUTATION PANEL, BM (LABEL) [...] + + + + | SHAN | [address] | [place] [address] | | | DIAGNOSTIC | [address] [...] | YESSICA-RAVINDER | [address], | [place] [address] | | | DIAGNOSTIC | [address] [...] YESSICA LOZA | [address] | [place] [address] | | | SERVICES, SPECIAL | PARK [...] NRASMutation: | | | | | | p.T40MXleboo Allele | | | | | | frequency: ~0.9% | | | | | | (previously ~40% in | | | | | | May 2015)Variant | | | | | | ID: [id number] | | | | | | Average# [...] Ion | | | | | | [employer] PGM. The | | | | | [...] supplementary | | | | | | ric-jdridrmzxi-nsibq | | | | | | assay [...] | | | | | | VarNRAS [id number] hg19 | | | | | | chr1 [id number] | | | | | | [id number] C A | | | | | [...] # | | | | | | [id number]. It has not | | | | [...] | | | | The [facility] | | | | | | DiagnosticsLaboratories | | | | | | are fully licensed by | | | | | | the state of [place] | | | | | | under CLIA and | | | | | | areaccredited by [employer] | | | | | | of [place] | | | | | | Pathologists [...] + + + + | SHAN | [address] | [place] [address] | | | DIAGNOSTIC | [address] [...] clinical | | | | | | senior data warehouse architect. | | | | | | Rendering [...] | | | | | Joceline PERERA, [facility], | | | | | | FACMGClinical [...] + + + + | YESSICA-RAVINDER | [address], | [place] [address] | | | DIAGNOSTIC | [address] [...] | | | | | | CD123 ([id number]). He | | | | | | has normal | | | | | | cytogenetics/FISH, | | | | | | andmolecular studies | | | | | | show an NRAS mutation | | | | | | ([id number]). His day | | | | | [...] Myeloid | | | | | | cauofcfgjk83%, erythroid | | | | | | precursors 7%, | | | | | | lymphocytes 13%, | | | | | | blasts/blast | | | | | | klpgzuyftcp11%, | | | | | | monocytes [...] | | | | | | dim [id number]. | | | | | | Myeloid [...] CD10 | | | | | | [id number] CD14 CD15 CD16 | | | | | | CD19 CD20 CD33 [id number] | | | | | | CD45 CD56 CD58 CD64 | | | | | | CD71 CD117 | | | | | | [id number] sLambda | | | | | | [...] | | | cs determined by [facility] | | | | | | laboratories. [...] + + + + | [facility] | [address] | [place] [address] | | | PATHOLOGY | [address] | | | + + + + + documented in this encounter Visit Diagnoses + + | Diagnosis | + + | Acute myeloid leukemia (AML), M4 (HCC) - Primary | + + documented in this encounter"
--- OUTSIDE RECORDS SUMMARY | ~2019-05-17 | XMS | Encounter Summary ---
Demographics + + + | Address | [address] | | | [place] [address] | + + + | Home Phone [...] Providers + +------+ + | Care Auto Electrician Name | Role | Phone | + [...] | | | | | remission | [address] | [id number] | | | | | Procedures | Phone: | [place] | | | | | NE | [phone] | Pavilion | | | | | AZACITIDINE | Fax: | [place], [place] | | | | | INJECTION, 1 | [phone] | [address] | | | | | MG NE | | Phone: | | | | | CHM,IV | | [phone] | | | | | INFSN,1 HR | | Fax: | | | | | NE CHM,IV | | [phone] | | | | | INFSN,ADDL | [...] | | | | | | [facility] [place] | | | | | | [place], | | | | | | [place] [address] | | | | | | [phone] | | | +--------+ + + + [...] MM URD (DPB1 permissive antigen mismatch, male, 8831-8151-2) Patient ambulated in with spouse. Patient denies [...] d ambulatory with . Next Appointment in [facility] is on 01/28/16 documented [...] | | | | | | [place], [place] | | | | | | [address] | | | | | | [phone] | | | | | | | [...] - MACARIO | [address] | [place], [place] | | | RUTHIE CARTER OF KRISTA | [facility] | [address] | | | TESTS | | | [...] MACARIO | [address] | [place], [place] | | | RUTHIE CARTER OF [facility] | [address] | [address] | | | TESTS | | | [...] [facility] | [address] | [place] [address] | | | SERVICES, CORE | WALLY [...] | | | | | | | [facility] 01/27/16 at 0815, HIGH RISK | | [...]
--- OUTSIDE RECORDS SUMMARY | ~2019-05-17 | XMS | Encounter Summary ---
Demographics + + + | Address | [address] | | | [place] [address] | + + + | Home Phone [...] Providers + +------+ + | Care Steam Train Driver Name | Role | Phone | + +------+ + | Pending Pcp Addition | PCP | Unavailable | + +------+ + Encounter Details +--------+ + + + + | Date | Type | Department | Care Team | Description | +--------+ + + + + | 07/08/ | Trench Digger | Center for | [place], | Acute myeloid | | 2015 | | Hematologic | [facility] | leukemia (AML), M4 | | | | Malignancies at [facility] | [address] | (HCC) (Primary Dx) | | | | [address] | [place], | | | | | [place] Mailcode: | [place] [address] | | | | | [facility] [address] | [phone] | | | | | [place], | | | | | | [place] [address] | | | | | | [phone] | | | +--------+ + + + [...] | Visit | Malignancy | [address] | | | | | | [address] | | | | | | [place], [place] | | | | | | [address] | | | | | | [phone] | | | | | | | | +--------+---------+ + + + documented as of this encounter Results PHIL TRIANA (07/10/2015 11:11 AM PST) + +---------+ + [...] SORTO | [address] | [place], [place] | | | [facility] | [address] | [address] | | | TESTS | | | [...] | [facility] | [address] | [place] [address] | | | SERVICES, CORE | WALLY [...] [facility] | [address] | [place] [address] | | | SERVICES, CORE | PARK [...] YESSICA LOZA | [address] | [place] [address] | | | SERVICES, CORE | [address] | | | + + + + + documented in this encounter Visit Diagnoses + + | Diagnosis | + + | Acute myeloid leukemia (AML), M4 (HCC) - Primary | + + documented in this encounter"
--- OUTSIDE RECORDS SUMMARY | ~2019-05-17 | XMS | Encounter Summary ---
Demographics + + + | Address | [address] | | | [place] [address] | + + + | Home Phone [...] Providers + +------+ + | Care Senior Instructional Designer Name | Role | Phone | + +------+ + | No Pcp Per Patient | PCP | Unavailable | + +------+ + Encounter Details +--------+------+ + + + | Date | Type | Department | Care Team | Description | +--------+------+ + + + | 11/09/ | Lab | Laboratory, | | S/P allogeneic bone | | 2016 | | Specimen Collection | | marrow transplant | | | | at [facility] 3rd Floor | | ([facility]) | | | | [address] | | | | | | [place], | | | | | | [place] [address] | | | | | | [phone] | | | +--------+------+ + + + [...] Rd | | | | | | [place], [place] | | | | | | [address] | | | | | | [phone] | | | | | | | | +--------+---------+ + + + documented as of this encounter Procedures + +--------+ + + + | Procedure Name | Priori | Date/Time | Associated Diagnosis | Comments | | | ty | | | | + +--------+ + + + | CBC AND AUTO DIFF | Routin | 11/09/2016 | S/P allogeneic | Results for this | | | e | 9:17 AM | bone marrow | procedure are in the | | | | PDT | transplant ([facility]) | results section. | + +--------+ + + + | CBC, WITH | Routin | 11/09/2016 | S/P allogeneic | Results for this | | DIFFERENTIAL | e | 9:17 AM | bone marrow | procedure are in the | | | | PDT | transplant ([facility]) | results section. | + +--------+ + + + | COMPLETE METABOLIC | Routin | 11/09/2016 | S/P allogeneic | Results for this | | SET | e | 9:17 AM | bone marrow | procedure are in the | | (NA,K,CL,CO2,BUN,CRE | | PDT | transplant ([facility]) | results section. | | AT,GLUC,CA,AST,ALT,B | | | | | | YUN TOTAL,ALK | | | | | | PHOS,ALB,PROT TOTAL) | | | | | + +--------+ + + + | TACROLIMUS, WHOLE | Routin | 11/09/2016 | S/P allogeneic | Results for this | | BLOOD | e | 9:17 AM | bone marrow | procedure are in the | | | | PDT | transplant ([facility]) | results section. | + +--------+ + + + | PHOSPHORUS, PLASMA | Routin | 11/09/2016 | S/P allogeneic | Results for this | | | e | 9:17 AM | bone marrow | procedure are in the | | | | PDT | transplant ([facility]) | results section. | + +--------+ + + + | BILIRUBIN DIRECT | Routin | 11/09/2016 | S/P allogeneic | Results for this | | | e | 9:17 AM | bone marrow | procedure are in the | | | | PDT | transplant ([facility]) | results section. | + +--------+ + + + | URIC ACID, PLASMA | Routin | 11/09/2016 | S/P allogeneic | Results for this | | | e | 9:17 AM | bone marrow | procedure are in the | | | | PDT | transplant ([facility]) | results section. | + +--------+ + + + | MAGNESIUM, PLASMA | Routin | 11/09/2016 | S/P allogeneic | Results for this | | | e | 9:17 AM | bone marrow | procedure are in the | | | | PDT | transplant ([facility]) | results section. | + +--------+ + + + | LDH TOTAL, PLASMA | Routin | 11/09/2016 | S/P allogeneic | Results for this | | | e | 9:17 AM | bone marrow | procedure are in the | | | | PDT | transplant ([facility]) | results section. | + +--------+ + + + documented in this encounter Results CBC AND AUTO DIFF (11/09/2016 9:17 AM PDT) + + + + + + | Component | Value | Ref Range | Performed | Pathologist | | | | | At | Signature | + + + + + + | WHITE CELL | 7.03 | 3.50 - 10.80 | [facility] | | | COUNT | | K/cu mm | LABORATORY | | | | | | SERVICES, | | | | | | CORE | | + + + + + + | RED CELL | 4.02 (L) | 4.50 - 6.00 | [facility] | | | COUNT | | M/cu mm | LABORATORY | | | | | | SERVICES, | | | | | | CORE | | + + + + + + | HEMOGLOBIN | 13.0 (L) | 13.5 - 17.5 | [facility] | | | | | g/dL | LABORATORY | | | | | | SERVICES, | | | | | | CORE | | + + + + + + | HEMATOCRIT | 38.6 (L) | 41.0 - 53.0 [...] + + + | RDW SD | 54.9 (H) | 35.1 - 46.3 fL | [facility] | | | | | | LABORATORY | | | | | | SERVICES, | | | | | | CORE | | + + + + + + | PLATELET | 290 | 150 - 400 K/cu | [facility] [...] + + + + | NEUTROPHIL | 55.1 | 50.0 - 70.0 % | [facility] | | | % | | | LABORATORY | | | | | | SERVICES, | | | | | | CORE | | + + + + + + | LYMPHOCYTE | 34.3 | 18.0 - 42.0 % | [facility] | | | % | | | LABORATORY | | | | | | SERVICES, | | | | | | CORE | | + + + + + + | MONOCYTE % | 8.1 | 3.5 - 9.0 % | [facility] | | | | | | LABORATORY | | | | | | SERVICES, | | | | | | CORE | | + + + + + + | EOS % | 1.3 | 1.0 - 3.0 % [...] + + + + | NEUTROPHIL | 3.88 | 1.80 - 7.70 | [facility] | | | # | | K/cu mm | LABORATORY | | | | | | SERVICES, | | | | | | CORE | | + + + + + + | LYMPHOCYTE | 2.41 | 1.00 - 4.80 | [facility] | [...] + + + | EOS # | 0.09 | 0.00 - 0.50 | [facility] | [...] + + + | [facility] | [address] | [place] [address] | | | SERVICES, INDRA | [address] | | | + + + + + TACROLIMUS, WHOLE BLOOD (11/09/2016 9:17 AM PDT) + +-------+ + + + | Component | Value | Ref Range | Performed | Pathologist | | | | | At | Signature | + +-------+ + + + | TACROLIMUS | 11.9 | 5.0 - 15.0 | [facility] | [...] | Test performed by immunoassay using [employer] i2000. . | [facility] | | [...] [facility] | [address] | [place] [address] | | | SERVICES, SPECIAL | [address] | | | | IMM + COAG | | | | + + + + + LDH TOTAL, PLASMA (11/09/2016 9:17 AM PDT) + +---------+ + + + [...] + + + + + | [facility] | [address] | [place] [address] | | | SERVICES, CORE | [address] | | | + + + + + BILIRUBIN DIRECT (11/09/2016 9:17 AM PDT) + +---------+ + + + [...] [facility] | [address] | [place] [address] | | | SERVICES, CORE | [address] | | | + + + + + URIC ACID, PLASMA (11/09/2016 9:17 AM PDT) + +-------+ + + + [...] + + + + + | [facility] | [address] | [place] [address] | | | SERVICES, CORE | [address] | | | + + + + + PHOSPHORUS, PLASMA (11/09/2016 9:17 AM PDT) + +-------+ + + + [...] [facility] | [address] | [place] [address] | | | SERVICES, CORE | [address] | | | + + + + + MAGNESIUM, PLASMA (11/09/2016 9:17 AM PDT) + +-------+ + + + [...] [facility] | [address] | [place] [address] | | | SERVICES, CORE | [address] | | | + + + + + COMPLETE METABOLIC SET (NA,K,CL,CO2,BUN,CREAT,GLUC,CA,AST,ALT,BILI TOTAL,ALK PHOS,ALB,PROT TOTAL) (11/09/2016 9:17 AM PDT) + +---------+ + + + [...] | | | LABORATORY | | | [place] | | | SERVICES, | | | [...] +---------+ + + + | CALCIUM, | 9.6 | 8.6 - 10.2 | [facility] | | | PLASMA | | mg/dL | LABORATORY | | | (LAB) | | | SERVICES, | | | | | | CORE | | + +---------+ + + + | CALCIUM(ALB | 9.7 | 8.6 - 10.2 | [facility] | [...] + + + | ALK PHOS | 99 | 53 - 128 U/L | [facility] [...] + + + | ALT (SGPT) | 105 (H) | <=60 U/L | [facility] | [...] the MDRD equation recommended by the | [facility] | | National Kidney Disease Education [...] + + + + + | [facility] | [address] | [place] [address] | | | SERVICES, CORE | [address] | | | + + + + + documented in this encounter Visit Diagnoses + + | Diagnosis | + + | 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
--- OUTSIDE RECORDS SUMMARY | ~2019-05-17 | XMS | Encounter Summary ---
Demographics + + + | Address | [address] | | | [place] [address] | + + + | Home Phone [...] Team Providers + +------+ + | Care Detail Maker And Fitter Name | Role | Phone | [...] | | | | | remission | [address] | [place] | | | | | | Phone: | Pavilion | | | | | Procedures | [phone] | [place], [place] | | | | | Post BMT | Fax: | [address] | | | | | Auth to | [phone] | Phone: | | | | | included | | [phone] | | | | | facility, | | Fax: | | | | | diagnostics, | | [phone] | | | | | office | [...] | Center for | | Lab Draw ([facility]); | | 2015 | Support | Hematologic | | Dressing change | | | Staff | Malignancies at [facility] | | ([facility]); Medication | | | | [address] | | (mag+) | | | | Debi Burger Mailcode: | | | | | | [id number] [place] | | | | | | [place], | | | | | | [place] [address] | | | | | | [phone] | | | +--------+ + + + [...] NOTE Name: Khurram Kelly Date: 11/18/2015 Provider: oJseph Holder Narrative: He is currently day +81 [...] Next Appointment in [facility] is on 11/22/15 at 8:45 am with [place]LY Yanes. Faviola Champagne MA - 11/18/2015 9:27 AM NIKKOI Faviola Bliss CMA am functioning as a scribe for Fatimah Hull who is a Pulp Bleacher Shoe Fitter. I have reviewed and verified the information [...] [place] | | | | | | [address] | | | | | | [phone] | | | | | | | [...] | BEACON | | PDT | transplant ([facility]) | | | | | [...] SORTO | [address] | [place], [place] | | | RUTHIE CARTER OF KRISTA | [address] | [address] | | | TESTS | | | [...] [facility] | [address] | [place], [place] | | | [facility] POINT OF CARE | [address] | [address] | | | TESTS | | | [...] [facility] | [address] | [place] [address] | | | SERVICES, SPECIAL | PARK [...] | | | | | | Until [facility] 11/18/15 at 1906, line | | | [...] | | | | ONCE, 1 dose, [facility] 11/18/15 at 0930 | | AM PDT [...]
--- OUTSIDE RECORDS SUMMARY | ~2019-05-17 | XMS | Encounter Summary ---
Demographics + + + | Address | [address] | | | [place] [address] | + + + | Home Phone [...] Team Providers + +------+ + | Care Chocolate Temperer Name | Role | Phone | + +------+ + | Zayda Hinton | PCP | | + +------+ + Encounter Details +--------+ + + + + | Date | Type | Department | Care Team | Description | +--------+ + + + + | 12/15/ | Pharmacy | Specialty Pharmacy | | | | 2015 | Visit | Services [address] | | | | | | [address] | | | | | | [place], [place] | | | | | | [address] | | | | | | [phone] | | | +--------+ + + + [...] Rd | | | | | | [place], [place] | | | | | | [address] | | | | | | [phone] | | | | | | | | +--------+---------+ + + + documented as of this encounter Visit Diagnoses Not on filedocumented in this encounter"
--- OUTSIDE RECORDS SUMMARY | ~2019-05-17 | XMS | Encounter Summary ---
Demographics + + + | Address | [address] | | | [place] [address] | + + + | Home Phone [...] Providers + +------+ + | Care Machine Engraver Name | Role | Phone | [...] | | | | | | [place] [address] | | | | | | [phone] | | | +--------+ + + + [...] Rd | | | | | | [place], [place] | | | | | | [address] | | | | | | [phone] | | | | | | | | +--------+---------+ + + + documented as of this encounter Visit Diagnoses Not on filedocumented in this encounter"
--- OUTSIDE RECORDS SUMMARY | ~2019-05-17 | XMS | Encounter Summary ---
Demographics + + + | Address | [address] | | | [place] [address] | + + + | Home Phone [...] Team Providers + +------+ + | Care Land Appraiser Name | Role | Phone | + [...] | | | [address] | [place], [place] | | | | | Debi Burger Mailcode: | [address] | | | | | [facility] | [phone] | | | | | [place], | | | | | | [place] [address] | | | | | | [phone] | | | +--------+ + + + [...] Rd | | | | | | [place], [place] | | | | | | [address] | | | | | | [phone] | | | | | | | | +--------+---------+ + + + documented as of this encounter Visit Diagnoses Not on filedocumented in this encounter"
--- OUTSIDE RECORDS SUMMARY | ~2019-05-17 | XMS | Encounter Summary ---
Demographics + + + | Address | [address] | | | [place] [address] | + + + | Home Phone [...] Team Providers + +------+ + | Care Airport Engineer Name | Role | Phone | [...] | | | | | remission | [address] | [place] | | | | | | Phone: | Pavilion | | | | | Procedures | [phone] | [place], [place] | | | | | Post BMT | Fax: | [address] | | | | | Auth to | [phone] | Phone: | | | | | included | | [phone] | | | | | facility, | | Fax: | | | | | diagnostics, | | [phone] | | | | | office | [...] 2015 | Visit | Hematologic | [place] [address] | leukemia (AML), M4 | | | | Malignancies at | [address] | (HCC)- primary | | | | [facility] | [place], [place] | induction failure | | | | [address] | [address] | (Primary Dx); S/P | | | | [place] Mailcode: | [phone] | allogeneic bone | | | | [facility] | | marrow transplant | | | | [facility] [place], | | (HCC) | | | | [place] [address] | | | | | | [phone] | | | +--------+---------+ + + + [...] , please call the Triage nurse at ([phone]) or BMT person on-call ([phone]) after hours. 3. If you received medications [...] were present during the team pause: Em Saunedrs PA-C and Alicia cevallos MA. Description: Written [...] 09/27/2015 IMGRANABS 0.32* 09/12/2015 Em Saunders PA-C [facility] AT [address] Mailcode: [place] [phone] documented in this encounter Plan of Treatment [...] Rd | | | | | | [place], [place] | | | | | | [address] | | | | | | [phone] | | | | | | | [...] | PDT | | | | | ([facility])- primary | 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 | | | | | | ([facility]) | | + +------+--------+ + + [...] | | | | | ([facility]) | | + + +--------+ + [...] | | PANEL | | PDT | ([facility])- primary | | | | | [...] | | MARROW | | PDT | ([facility])- primary | 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 | | | | | | (HCC) | | + +--------+ + + + | WI BONE MARROW ASP | Routin | 09/27/2015 | 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), M4 | | | | | PDT | ([facility])- primary | 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 | | | | | | ([facility]) | | + +--------+ + + + | WI BONE MARROW BX, | Routin | 09/27/2015 | Acute myeloid | | | NEEDLE/TROCAR | e | 8:55 AM | leukemia (AML), M4 | | | | | PDT | ([facility])- primary | 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 | | | | | | ([facility]) | | + +--------+ + + + | GENETRAILS AML/MDS | Routin | 09/27/2015 | Acute myeloid | Results for this | | GENE MUTATION PANEL, | e | | leukemia (AML), M4 | procedure are in the | | BM (PP) | | | ([facility])- primary | results section. | | [...] W/ REFLEX | | | ([facility])- primary | results section. | | [...] W/ REFLEX | | | ([facility])- primary | results section. | | [...] + + + + | [facility] | [address] | [place] [address] | | | DIAGNOSTIC | [address] [...] | + + + + + | [facility] | [address] | [place] [address] | | | SERVICES, SPECIAL | WALLY [...] + + + + | [facility] | [address] | [place] [address] | | | DIAGNOSTIC | [address] [...] | + + + + + | [facility] | [address] | [place] [address] | | | DIAGNOSTIC | [address] [...] | | | | | | by:Kary Ponce, | | | | | | M.D./HematopathologistT: [...] Myeloid | | | | | | exdducavxh90%, erythroid | | | | | | [...] CD10 | | | | | | [id number] CD14 CD15 CD16 | | | | | | CD19 CD20 CD33 [id number] | | | | | | CD45 CD56 CD58 CD64 | | | | | | CD71 CD117 | | | | | | [id number] sLambda | | | | | | [...] | + + + + + | [facility] | [address] | [place] [address] | | | PATHOLOGY | [address] [...] Gene: | | | | | | EW2QBsnbuln: | | | | | | p.[id number] [...] Ion | | | | | | [employer] PGM. The | | | | | [...] | | | | | by routine [place] | | | | | | dideoxy sequencing | | | | | | methods. A list of the | | | | | | genesegments that are | | | | | | incompletely covered by | | | | | | the combination of | | | | | | massivelyparallel and | | | | | | [place] sequencing are | | | | | [...] supplementary | | | | | | sey-qymkdkmubb-xovic | | | | | | assay [...] Ref | | | | | | [id number] | | | | | | hg19 chr5 [id number] | | | | | | [id number] G T | | | | | [...] # | | | | | | [id number]. It has not | | | | [...] | | | | | the [facility] | | | | | | under CLIA and | | | | | | areaccredited by [place] | | | | | | of [place] | | | | | | Pathologists [...] + + + | [facility] | [address] | [place] [address] | | | DIAGNOSTIC | [address] [...] clinical | | | | | | structural engineering project manager. | | | | | | Rendering [...] + + + + | [facility] | [address] | [place] [address] | | | DIAGNOSTIC | [address] [...]
--- OUTSIDE RECORDS SUMMARY | ~2019-05-17 | XMS | Encounter Summary ---
Demographics + + + | Address | [address] | | | [place] [address] | + + + | Home Phone [...] Team Providers + +------+ + | Care Window Covering Sales Consultant Name | Role | Phone [...] | | | [address] | [place], [place] | | | | | Debi Burger Mailcode: | [address] | | | | | [facility] | [phone] | | | | | [place], | | | | | | [place] [address] | | | | | | [phone] | | | +--------+ + + + [...] Rd | | | | | | [place] | | | | | | [address] | | | | | | [phone] | | | | | | | | +--------+---------+ + + + documented as of this encounter Visit Diagnoses Not on filedocumented in this encounter"
--- OUTSIDE RECORDS SUMMARY | ~2019-05-17 | XMS | Encounter Summary ---
Demographics + + + | Address | [address] | | | [place] [address] | + + + | Home Phone [...] Team Providers + +------+ + | Care Shipfitter Apprentice Name | Role | Phone | [...] | | | | | remission | [address] | [facility] | | | | | Procedures | Phone: | [place] | | | | | [place] | [phone] | Pavilion | | | | | AZACITIDINE | Fax: | [place], [place] | | | | | INJECTION, 1 | [phone] | [address] | | | | | [place] | | Phone: | | | | | CHM,IV | | [phone] | | | | | INFSN,1 HR | | Fax: | | | | | [place] CHM,IV | | [phone] | | | | | INFSN,ADDL | [...] | | | | | | [facility] [place] | | | | | | [place], | | | | | | [place] [address] | | | | | | [phone] | | | +--------+ + + + [...] [address] | | | | | | [place], [place] | | | | | | [address] | | | | | | [phone] | | | | | | | [...]
--- OUTSIDE RECORDS SUMMARY | ~2019-05-17 | XMS | Encounter Summary ---
Demographics + + + | Address | [address] | | | [place] [address] | + + + | Home Phone [...] Providers + +------+ + | Care Shoe Planner Name | Role | Phone | [...] | | | Christian Barry | [place], [place] | | | | | [address] | [address] | | | | | Debi Burger Mailcode: | [phone] | | | | | [id number] | | | | | | [address] [place], | | | | | | [place] [address] | | | | | | [phone] | | | +--------+--------+ + + + [...] | | | | | | [place], [place] | | | | | | [address] | | | | | | [phone] | | | | | | | | +--------+---------+ + + + documented as of this encounter Visit Diagnoses Not on filedocumented in this encounter"
--- OUTSIDE RECORDS SUMMARY | ~2019-05-17 | XMS | Encounter Summary ---
Demographics + + + | Address | [address] | | | [place] [address] | + + + | Home Phone [...] Team Providers + +------+ + | Care Bottle Line Worker Name | Role | Phone [...] | | | | Christian Barry | [place], [place] | | | | | [address] | [address] | | | | | Debi Burger Mailcode: | [phone] | | | | | [id number] | | | | | | [place], | | | | | | [place] [address] | | | | | | [phone] | | | +--------+ + + + [...] Rd | | | | | | [place], [place] | | | | | | [address] | | | | | | [phone] | | | | | | | | +--------+---------+ + + + documented as of this encounter Visit Diagnoses Not on filedocumented in this encounter"
--- OUTSIDE RECORDS SUMMARY | ~2019-05-17 | XMS | Encounter Summary ---
Demographics + + + | Address | [address] | | | [place] [address] | + + + | Home Phone [...] Team Providers + +------+ + | Care Phlebotomist Name | Role | Phone | + [...] marrow transplant | | | | at [facility] 3rd Floor | | ([facility]) | | | | [address] | | | | | | [place], | | | | | | [place] [address] | | | | | | [phone] | | | +--------+------+ + + + [...] Rd | | | | | | [place], [place] | | | | | | [address] | | | | | | [phone] | | | | | | | [facility]) | results section. | | AT,GLUC,CA,AST,ALT,B | [...] + + + | [facility] | [address] | [place] [address] | | | SERVICES, INDRA | WALLY [...] | Test performed by immunoassay using Blanton Ribbon Blocker i2000. . | [facility] | | Samples [...] [facility] | [address] | [place] [address] | | | SERVICES, SPECIAL | PARK [...] | + + + + + | [facility] | [address] | [place] [address] | | | SERVICES, CORE | WALLY [...] [facility] | [address] | [place] [address] | | | SERVICES, CORE | PARK [...] | + + + + + | [facility] | [address] | [place] [address] | | | SERVICES, CORE | WALLY [...] [facility] | [address] | [place] [address] | | | SERVICES, CORE | WALLY [...] [facility] | [address] | [place] [address] | | | SERVICES, CORE | WALLY [...] | | | LABORATORY | | | JORDANIAN | | | SERVICES, | | | [...] the MDRD equation recommended by the | [facility] | | National Kidney Disease Education [...] + + + + + | [facility] | [address] | [place] [address] | | | SERVICES, CORE | [address] | | | + + + + + documented in this encounter Visit Diagnoses + + | Diagnosis | + + | 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
--- OUTSIDE RECORDS SUMMARY | ~2019-05-17 | XMS | Encounter Summary ---
Demographics + + + | Address | [address] | | | [place] [address] | + + + | Home Phone [...] Team Providers + +------+ + | Care Class C Truck Driver Name | Role | Phone | + +------+ + | Zayda Hinton | PCP | | + +------+ + Encounter Details +--------+ + + + + | Date | Type | Department | Care Team | Description | +--------+ + + + + | 09/25/ | Pharmacy | Specialty Pharmacy | | | | 2015 | Visit | Services [address] | | | | | | [address] | | | | | | [place], [place] | | | | | | [address] | | | | | | [phone] | | | +--------+ + + + [...] [place] | | | | | | [address] | | | | | | [phone] | | | | | | | | +--------+---------+ + + + documented as of this encounter Visit Diagnoses Not on filedocumented in this encounter"
--- OUTSIDE RECORDS SUMMARY | ~2019-05-17 | XMS | Encounter Summary ---
Demographics + + + | Address | [address] | | | [place] [address] | + + + | Home Phone [...] Team Providers + +------+ + | Care Support Engineer Name | Role | Phone | [...] | | | | | | | [address] | | | | | | | [address] | | | | | | | [place], | | | | | | | [place] | | | | | | | [address] | | | | | | | Phone: | | | | | | | [phone] | | | | | | | Fax: | | | | | | | [phone] | +--------+--------+ + + + + Encounter [...] [facility] | | | | | | [address] | | | | | | [place] Mailcode: | | | | | | [id number] | | | | | | [place], | | | | | | [place] [address] | | | | | | [phone] | | | +--------+ + + + [...] Rd | | | | | | [place], [place] | | | | | | [address] | | | | | | [phone] | | | | | | | [...] the | | | | PST | ([facility]) | results section. | + +--------+ + + + | TYPE AND SCREEN | Urgent | 07/12/2015 | Acute myeloid | Results for this | | | | 4:31 PM | leukemia (AML), M4 | procedure are in the | | | | PST | ([facility]) | results section. | + +--------+ + + + | ABO & RH TYPE | Urgent | 07/12/2015 | Acute myeloid | Results for this | | | | 4:31 PM | leukemia (AML), M4 | procedure are in the | | | | PST | ([facility]) | results section. | + +--------+ + + + | BMP + MAG, POC CHM | Urgent | 07/12/2015 | Acute myeloid | Results for this | | | | 3:33 PM | leukemia (AML), M4 | procedure are in the | | | | PST | ([facility]) | results section. | + +--------+ + + + | CBC AND AUTO DIFF | Urgent | 07/12/2015 | Acute myeloid | Results for this | | | | 3:25 PM | leukemia (AML), M4 | procedure are in the | | | | PST | ([facility]) | results section. 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 | + [...] [facility] | [address] | [place] [address] | | | SERVICES, | [address] [...] | [facility] | [address] | [place] [address] | | | SERVICES, | [address] [...] + + + | [facility] | [address] | [place], [place] | | | RUTHIE CARTER OF [facility] | [address] | [address] | | | TESTS | | | [...] | + + + + + | [facility] | [address] | [place] [address] | | | SERVICES, CORE | PARK [...] [facility] | [address] | [place] [address] | | | INDRA SHARIF | WALLY [...] [facility] | [address] | [place] [address] | | | SERVICES, CORE | PARK [...] [facility] | [address] | [place] [address] | | | SERVICES, CORE | PARK [...] | + + + + + | [facility] | [address] | [place] [address] | | | SERVICES, CORE | WALLY [...]
--- OUTSIDE RECORDS SUMMARY | ~2019-05-17 | XMS | Encounter Summary ---
Demographics + + + | Address | [address] | | | [place] [address] | + + + | Home Phone [...] Providers + +------+ + | Care Auto Body Man Name | Role | Phone | [...] 2017 | Visit | Hematologic | [address] [facility] [address] | marrow transplant | | | | Malignancies at | [address] | (HCC) (Primary Dx) | | | | [facility] | [facility] [place] | | | | | [address] | [address] | | | | | [address] Mailcode: | [phone] | | | | | [id number] [place] | | | | | | Pav[place], | | | | | | [place] [address] | | | | | | [phone] | | | +--------+---------+ + + + [...] MM URD (DPB1 permissive antigen mismatch, male, 6386-9136-2) Identifying Data: Khurram Kelly is a 25 [...] his L ankle. He was evaluated at [facility] ED on 06/[address] angiogram negative [...] leukemia. 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 Pt was admitted to [facility] on 05/26/15. Peripheral blood was [...] CD34, variable CD56, variable CD117, and dim SU598-pccbd mickey; promonocyte immunophenotype (70% by flow): CD11b, [...] one year anniversary, sooner p rn 2. Rzqgv-di-Skge Disease: Skin bx due to mild rash [...] he was seen in the ED in [place] in late 01/21. Prednisone was increased back [...] a peer support group or support at [employer] [facility], then felt this was no longer [...] Sondra Richey LCSW; he will connect with Kuhrram by email --> encouraged pt to contact [...] [facility] [address] [facility] Mailcode: [place] [id number] documented in this enc ounter Plan of [...] Rd | | | | | | [place], [place] | | | | | | [address] | | | | | | [phone] | | | | | | | | +--------+---------+ + + + documented as of this encounter Visit Diagnoses + + | Diagnosis | + + | 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HCC) - Primary Bone marrow replaced by | | transplant | + + documented in this encounter
--- OUTSIDE RECORDS SUMMARY | ~2019-05-17 | XMS | Encounter Summary ---
Demographics + + + | Address | [address] | | | [place] [address] | + + + | Home Phone [...] Providers + +------+ + | Care Rn Wellness Name | Role | Phone | + [...] [facility] 3rd Floor | | ([facility]) | | | | [address] | | | | | | [place], | | | | | | [place] [address] | | | | | | [phone] | | | +--------+------+ + + + [...] Rd | | | | | | [place], [place] | | | | | | [address] | | | | | | [phone] | | | | | | | [...] [facility] | [address] | [place] [address] | | | SERVICES, CORE | PARK [...] | Test performed by immunoassay using Blanton Mycologist i2000. . | [facility] | | Samples [...] [facility] | [address] | [place] [address] | | | SERVICES, SPECIAL | PARK [...] + + + + + | [facility] | [address] | [place] [address] | | | SERVICES, CORE | WALLY [...] LABORATORY | [address] | [place] [address] | | | SERVICES, CORE | PARK [...] | + + + + + | [facility] | [address] | [place] [address] | | | SERVICES, CORE | WALLY [...] [facility] | [address] | [place] [address] | | | SERVICES, CORE | WALLY [...] [facility] | [address] | [place] [address] | | | SERVICES, CORE | PARK [...] | | | LABORATORY | | | SURINAMESE | | | SERVICES, | | | [...] + + + + + | [facility] | [address] | [place] [address] | | | SERVICES, CORE | [address] | | | + + + + + documented in this encounter Visit Diagnoses + + | Diagnosis | + + | 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
--- OUTSIDE RECORDS SUMMARY | ~2019-05-17 | XMS | Encounter Summary ---
Demographics + + + | Address | [address] | | | [place] [address] | + + + | Home Phone [...] Team Providers + +------+ + | Care Cargo Supervisor Name | Role | Phone | + +------+ + | Zayda Hinton | PCP | | + +------+ + Encounter Details +--------+ + + + + | Date | Type | Department | Care Team | Description | +--------+ + + + + | 08/04/ | Pharmacy | Specialty Pharmacy | | | | 2015 | Visit | Services [address] | | | | | | [address] | | | | | | [place], [place] | | | | | | [address] | | | | | | [phone] | | | +--------+ + + + [...] [place] | | | | | | [address] | | | | | | [phone] | | | | | | | | +--------+---------+ + + + documented as of this encounter Visit Diagnoses Not on filedocumented in this encounter"
--- OUTSIDE RECORDS SUMMARY | ~2019-05-17 | XMS | Encounter Summary ---
Demographics + + + | Address | [address] | | | [place] [address] | + + + | Home Phone [...] Providers + +------+ + | Care Machine Tool Rebuilder Name | Role | Phone | + +------+ + | Zayda Hinton | PCP | | + +------+ + Encounter Details +--------+ + + + + | Date | Type | Department | Care Team | Description | +--------+ + + + + | 09/17/ | Results/Int | Pulmonary Function | | Postinflammatory | | 2018 | erpretation | Lab at [facility] [address] | | pulmonary fibrosis | | | | [address] | | ([facility]) (Primary Dx) | | | | Mailcode: [id number] | | | | | | [address] | | | | | | [place], [place] | | | | | | [address] | | | | | | [phone] | | | +--------+ + + + [...] documented as of this encounter Progress Notes Sam Levin MD - 09/19/2017 6:09 PM PDT Refer to PFT report. doc umented in this encounter Plan of Treatment +--------+---------+ [...] [address] | | | | | | [place], [place] | | | | | | [address] | | | | | | [phone] | | | | | | | | +--------+---------+ + + + documented as of this encounter Procedures + +--------+ + + + | Procedure Name | Priori | Date/Time | Associated Diagnosis | Comments | | | ty | | | | + +--------+ + + + | AR DIFFUSING | Routin | 09/19/2017 | Postinflammatory | | | CAPACITY | e | 6:09 PM | pulmonary fibrosis | | | | | PDT | ([facility]) | | + +--------+ + + + | AR PLETHYSMOGRAPHY | Routin | 09/19/2017 | Postinflammatory | | | FOR DETERM OF LUNG | e | 6:09 PM | pulmonary fibrosis | | | VOLUMES | | PDT | ([facility]) | | + +--------+ + + + | AR SPIROMETRY TEST | Routin | 09/19/2017 | Postinflammatory | | | | e | 6:09 PM | pulmonary fibrosis | | | | | PDT | (HCC) | | + +--------+ + + + documented in this encounter Visit Diagnoses + + | Diagnosis | + + | 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
--- OUTSIDE RECORDS SUMMARY | ~2019-05-17 | XMS | Encounter Summary ---
Demographics + + + | Address | [address] | | | [place] [address] | + + + | Home Phone [...] Providers + +------+ + | Care Program Director Scouting Name | Role | Phone | + [...] | | | [address] | [place], [place] | | | | | [address] Mailcode: | [address] | | | | | [address] | [phone] | | | | | [place], | | | | | | [place] [address] | | | | | | [phone] | | | +--------+ + + + [...] | | | | | | [place] | | | | | | [address] | | | | | | [phone] | | | | | | | | +--------+---------+ + + + documented as of this encounter Visit Diagnoses Not on filedocumented in this encounter"
--- OUTSIDE RECORDS SUMMARY | ~2019-05-17 | XMS | Encounter Summary ---
Demographics + + + | Address | [address] | | | [place] [address] | + + + | Home Phone [...] Team Providers + +------+ + | Care Pharmacist Name | Role | Phone | [...] | 2017 | | Hematologic | [address] [facility] | | | | | Malignancies at | [address] | | | | | [address] | [place], [place] | | | | | [address] | [address] | | | | | [address] Mailcode: | [phone] | | | | | [address] | | | | | | [place], | | | | | | [place] [address] | | | | | | [phone] | | | +--------+--------+ + + + [...] Rd | | | | | | [place] | | | | | | [address] | | | | | | [phone] | | | | | | | | +--------+---------+ + + + documented as of this encounter Visit Diagnoses Not on filedocumented in this encounter"
--- OUTSIDE RECORDS SUMMARY | ~2019-05-17 | XMS | Encounter Summary ---
Demographics + + + | Address | [address] | | | [place] [address] | + + + | Home Phone [...] Team Providers + +------+ + | Care Hunting And Fishing Guide Name | Role | Phone [...] | | | | | | [place], | | | | | | | [place] | | | | | | | [address] | | | | | | | Phone: | | | | | | | [phone] | | | | | | | Fax: | | | | | | | [phone] | +--------+--------+ + + + + Encounter [...] (HCC) (Primary Dx) | | | | [place] | [place], [place] | | | | | [address] | [address] | | | | | [address] Mailcode: | [phone] | | | | | [address] [place] | | | | | | [place], | | | | | | [place] [address] | | | | | | [phone] | | | +--------+---------+ + + + [...] MM URD (DPB1 permissive antigen mismatch, male, 5590-5752-2) Identifying Data: Khurram Kelly is a 25 [...] L ankle. He was evaluated at [facility] ED on 06/[address] angiogram [...] myelomonocytic leukemia. 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 Pt was admitted to [facility] on 05/26/15. Peripheral blood was sent for [...] CD34, variable CD56, variable CD117, and dim TM380-yaslw imckey; promonocyte immunophenotype (70% by flow): CD11b, [...] Just returned from a trip [facility], climbed up [facility] [employer] ja with his and son then took [...] one year anniversary, sooner p rn 2. Dgwrw-fz-Rgbe Disease: Skin bx due to mild rash [...] he was seen in the ED in [place] in late 01/21. Prednisone was increased back [...] a peer support group or support at [facility], h owever he feels this is no longer necessary. Notes his anxiety is worse when he is bored, fe els much better at home in [facility] surrounded by supportive friends and family. --> continue current meds --> re-refer to Transitions, support groups should pt wish 7. Follow up --> RTC to f/u with me on 05/29/16, sooner slimen [facility] [address] [facility] Mailcode: [place] [address] documented in this enc ounter [...] | 2019 | Visit | Malignancy | [address] [place] [address] | | | | | | [facility] | | | | | | [place], [place] | | | | | | [address] | | | | | | [phone] | | | | | | | | +--------+---------+ + + + documented as of this encounter Visit Diagnoses + + | Diagnosis | + + | 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HCC) - Primary Bone marrow replaced by | | transplant | + + documented in this encounter
--- OUTSIDE RECORDS SUMMARY | ~2019-05-17 | XMS | Encounter Summary ---
Demographics + + + | Address | [address] | | | [place] [address] | + + + | Home Phone [...] Team Providers + +------+ + | Care Gyroscope Repairer Name | Role | Phone | + +------+ + | Pending Pcp Addition | PCP | Unavailable | + +------+ + Encounter Details +--------+ + + + + | Date | Type | Department | Care Team | Description | +--------+ + + + + | 03/09/ | Documentati | Center for | Work, [...] | | | | | | [place], | | | | | | [place] [address] | | | | | | [phone] | | | +--------+ + + + [...] Rd | | | | | | [place], [place] | | | | | | [address] | | | | | | [phone] | | | | | | | | +--------+---------+ + + + documented as of this encounter Visit Diagnoses Not on filedocumented in this encounter"
--- OUTSIDE RECORDS SUMMARY | ~2019-05-17 | XMS | Encounter Summary ---
Demographics + + + | Address | [address] | | | [place] [address] | + + + | Home Phone [...] Team Providers + +------+ + | Care Handle Lathe Operator Name | Role | Phone | [...] | | | | | achieved | [place], [place] | [address] | | | | | remission | [address] | [facility] | | | | | | Phone: | Pavilion | | | | | Procedures | [phone] | [place], [place] | | | | | Post BMT | Fax: | [address] | | | | | Auth to | [phone] | Phone: | | | | | included | | [phone] | | | | | facility, | | Fax: | | | | | diagnostics, | | [phone] | | | | | office | [...] (Em Saunders) | | | | [facility] [place] | | | | | | [place], | | | | | | [place] [address] | | | | | | [phone] | | | +--------+ + + + [...] by spouse, Lenka. Next Appo intment in [facility] is on 10/14/15 at [...] [address] | | | | | | [place], [place] | | | | | | [address] | | | | | | [phone] | | | | | | | [...] the | | | | PDT | ([facility])- primary | results section. 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 | | | | | | ([facility]) | | + +--------+ + + + | CBC+DIFF,POC | Urgent | 10/11/2015 | Acute myeloid | Results for this | | | | 10:45 AM | leukemia (AML), M4 | procedure are in the | | | | PDT | ([facility])- primary | results section. | [...] the | | | | PDT | ([facility])- primary | results section. | [...] | | TOTAL,BILI | | PDT | ([facility])- primary | results section. | [...] the | | | | PDT | ([facility])- primary | results section. | [...] the | | | | PDT | ([facility])- primary | results section. | [...] | ANTIGEN, SERUM | | PDT | ([facility])- primary | results section. | [...] | | BEACON | | PDT | ([facility])- primary | | | | | | induction failure | | + +--------+ + + + | TREATMENT PARAMETERS | Routin | 10/11/2015 | Acute myeloid | | | #2 - BEACON | e | 10:18 AM | leukemia (AML), M4 | | | | | PDT | ([facility])- primary | | | | [...] | | | | | PDT | ([facility])- primary | | | | | | induction failure | | + +--------+ + + + | TREATMENT PARAMETERS | Routin | 10/11/2015 | Acute myeloid | | | #2 - BEACON | e | 10:18 AM | leukemia (AML), M4 | | | | | PDT | ([facility])- primary | | | | | | induction failure | | + +--------+ + + + | TREATMENT PARAMETERS | Routin | 10/11/2015 | Acute myeloid | | | #2 - BEACON | e | 10:18 AM | leukemia (AML), M4 | | | | | PDT | ([facility])- primary | | | | [...] | | | | | PDT | ([facility])- primary | | | | [...] [facility] | [address] | [place], [place] | | | RUTHIE CARTER OF KRISTA | [facility] | [address] | | | TESTS | | | [...] [facility] | [address] | [place], [place] | | | [facility] POINT OF CARE | [address] | [address] | | | TESTS | | | [...] [facility] | [address] | [place] [address] | | | SERVICES, CORE | PARK [...] [facility] | [address] | [place] [address] | | | SERVICES, CORE | PARK [...] | + + + + + | [facility] | [address] | [place] [address] | | | SERVICES, SPECIAL | PARK [...] | | characteristics determined by the [facility] | | | Molecular Diagnostic [...] | | Act of 1988. The [facility] Molecular | | | Diagnostic Center is a fully licensed and/or accredited clinical | | | laboratory under CLIA, CAP, and the [facility]. | | + + + + + + + + | Performing | Address | City/State/[facility] | Phone Number | | Organization | | | | + + + + + | [facility] | [address] | [place] [address] | | | DIAGNOSTIC | [address] [...] YESSICA LOZA | [address] | [place] [address] | | | SERVICES, SPECIAL | PARK [...]
--- OUTSIDE RECORDS SUMMARY | ~2019-05-17 | XMS | Encounter Summary ---
Demographics + + + | Address | [address] | | | [place] [address] | + + + | Home Phone [...] Providers + +------+ + | Care Store Administrator Name | Role | Phone | [...] Encounter | Radiology at [facility] | [address] [facility] | | | | | [address] | [address] | | | | | Debi Burger Mailcode: | [place], [place] | | | | | [address] Physician's | [address] | | | | | [place], | [phone] | | | | | [place] [address] | | | | | | [phone] | | | +--------+ + + + [...] Rd | | | | | | [place], [place] | | | | | | [address] | | | | | | [phone] | | | | | | | [...]
--- OUTSIDE RECORDS SUMMARY | ~2019-05-17 | XMS | Encounter Summary ---
Demographics + + + | Address | [address] | | | [place] [address] | + + + | Home Phone [...] Team Providers + +------+ + | Care Broach Setter Name | Role | Phone | + +------+ + | Zayda Hinton | PCP | | + +------+ + Encounter Details +--------+ + + + + | Date | Type | Department | Care Team | Description | +--------+ + + + + | 09/07/ | Procedure | 6A [facility] | | | | 2017 | Pass | [facility] | | | | | | Admitting Desk | | | | | | Located on the 9th | | | | | | floor [address] | | | | | [address] | | | | | | [place], [place] | | | | | | [address] | | | +--------+ + + + [...] Rd | | | | | | [place], [place] | | | | | | [address] | | | | | | [phone] | | | | | | | | +--------+---------+ + + + documented as of this encounter Visit Diagnoses Not on filedocumented in this encounter"
--- OUTSIDE RECORDS SUMMARY | ~2019-05-17 | XMS | Encounter Summary ---
Demographics + + + | Address | [address] | | | [place] [address] | + + + | Home Phone [...] Team Providers + +------+ + | Care Shuttle Car Operator Name | Role | Phone [...] | | | | | | | [address] | | | | | | | Phone: | | | | | | | [phone] | | | | | | | Fax: | | | | | | | [phone] | +--------+--------+ + + + + Encounter [...] | | | | | | Debi uBrger Mailcode: | | | | | | [address] | | | | | | [place], | | | | | | [place] [address] | | | | | | [phone] | | | +--------+ + + + [...] Carrera | | | | | | [place], [place] | | | | | | [address] | | | | | | [phone] | | | | | | | [...] | | ([facility]LY [facility] [...] - [facility]) | results section. | | | [...] | | ([facility] [...] | | ([facility] [...] SORTO | [address] | [place], [place] | | | EMMA POINT OF CARE | [address] | [address] | | | TESTS | | | [...] + + + | YESSICA SORTO | [address] | [place], [place] | | | RUTHIE CARTER OF CARE | [address] | [address] | | | TESTS | | | [...] | + + + + + | [facility] | [address] | [place] [address] | | | SERVICES, CORE | [address]ARK [...] fold may not reflect true | [facility] | | biological changes and must [...] | | | characteristics determined by the [facility] | | | Molecular [...] | | | Act of 1988. The [facility] | | | Diagnostic Center is a fully licensed and/or accredited clinical | | | laboratory under CLIA, [facility], and the [facility]. | | + + + + + + + + | Performing | Address | City/State/Zipcode | Phone Number | | Organization | | | | + + + + + | [facility] | [address] | [place] [address] | | | DIAGNOSTIC | [address] [...]
--- OUTSIDE RECORDS SUMMARY | ~2019-05-17 | XMS | Encounter Summary ---
Demographics + + + | Address | [address] | | | [place] [address] | + + + | Home Phone [...] Team Providers + +------+ + | Care Dispatcher Refinery Name | Role | Phone | + [...] | Hematology | Diagnoses | Cook, | [facility] | | | | Malignancy | 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, | [address] | Wally Burger | | | | | not having | Wally Burger | Mailcode: | | | | | achieved | [place], [place] | [facility] | | | | | remission | [address] | Reagan | | | | | | Phone: | Pavilion | | | | | Procedures | [phone] | [place], [place] | | | | | Post BMT | Fax: | [address] | | | | | Auth to | [phone] | Phone: | | | | | included | | [phone] | | | | | facility, | | Fax: | | | | | diagnostics, | | [phone] | | | | | office | [...] Follow-up visit | | | | [facility] [address] | | (JULIANA Jimenez ) | | | | [place], | | | | | | [place] [address] | | | | | | [phone] | | | +--------+ + + + [...] patient's request. Patient will re turn to [facility] infusion clinic for next appointment on [...] | | | | | | Jabier [facility] | | | | | | [place], [place] | | | | | | [address] | | | | | | [phone] | | | | | | | [...] + + + | YESSICA SORTO | [address] | [place], [place] | | | EMMA POINT OF CARE | [address] | [address] | | | TESTS | | | [...] SORTO | [address] | [place], [place] | | | INTERVALE POINT OF [facility] | [address] | [address] | | | TESTS | | | [...] 2 fold may not reflect true | [facility] | | biological changes and must [...] | | | characteristics determined by the [facility] | | | [...] | Act of 1988. The [facility] | | | Diagnostic Center is a fully licensed and/or accredited clinical | | | laboratory under CLIA, [facility], and the [facility]. | | + + + + + + + + | Performing | Address | City/State/Zipcode | Phone Number | | Organization | | | | + + + + + | [facility] | [address] | [place] [address] | | | DIAGNOSTIC | [address] [...] galactomannan Antigen by EIA | [facility] | | | LABORATORY | [...] [facility] | [address] | [place] [address] | | | SERVICES, SPECIAL | WALLY [...] [facility] | [address] | [place] [address] | | | SERVICES, CORE | WALLY [...] CENTER LABORATORY | [address] | [place] [address] | | | SERVICES, CORE | WALLY [...] + | [facility] | [address] | [place] [address] | | | SERVICES, SPECIAL | PARK [...] + | [facility] - [facility]PORT - | [address] | [place] [address] | | | [place] | | | | + + + + + documented in this encounter Visit Diagnoses + + | Diagnosis | + + | Acute myeloid leukemia (AML), 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
--- OUTSIDE RECORDS SUMMARY | ~2019-05-17 | XMS | Encounter Summary ---
Demographics + + + | Address | [address] | | | [place] [address] [...] Team Providers + +------+ + | Care Forestry Farm Laborer Name | Role | Phone | [...] | | | | | [place], | | | | | | | [place] | | | | | | | [address] | | | | | | | Phone: | | | | | | | [phone] | | | | | | | Fax: | | | | | | | [phone] | +--------+--------+ + + + + Encounter [...] | | | | Malignancies at | [address] | (HCC) (Primary Dx) | | | | [facility] | [place], [place] | | | | | [address] | [address] | | | | | Debi Burger Mailcode: | [phone] | | | | | [facility] | | | | | | [place], | | | | | | [place] [address] | | | | | | [phone] | | | +--------+---------+ + + + [...] of sun exposure as this can cause cekzv-vkywmj-vill disease. Wear a hat, sungla sses, and [...] MM URD (DPB1 permissive antigen mismatch, male, 8140-8939-2) Identifying Data: Khurram Kelly is a 25 [...] his L ankle. He was evaluated at [facility] ED on 06/[address] angiogram negative [...] CD34, variable CD56, variable CD117, and dim IU061-lsnxu mickey; promonocyte immunophenotype (70% by flow): CD11b, [...] c5 of azacitidine and [facility]. Interim History: Khurram was [...] marrow studies after c6 of azacitidine 2. Mnmnx-ok-Danz Disease: Skin bx due to mild rash [...] he was seen in the ED in [place] in late 01/21. Prednisone was increased back [...] Garcia MD on 03/06/16, sooner prn [facility] AT [address] [place]: [place] [address] documented in this enc ounter Plan of [...] 2018 | Visit | Malignancy | [address] [facility] [address] | | | | | | [address] | | | | | | [place], [place] | | | | | | [address] | | | | | | [phone] | | | | | | | | +--------+---------+ + + + documented as of this encounter Visit Diagnoses + + | Diagnosis | + + | 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
--- OUTSIDE RECORDS SUMMARY | ~2019-05-17 | XMS | Encounter Summary ---
Demographics + + + | Address | [address] | | | [place] [address] | + + + | Home Phone [...] Providers + +------+ + | Care Manager Business Planning Name | Role | Phone | + [...] | | | | | | | [address] | | | | | | | Jabier Carrera | | | | | | | [place], | | | | | | | [place] | | | | | | | [address] | | | | | | | Phone: | | | | | | | [phone] | | | | | | | Fax: | | | | | | | [phone] | +--------+--------+ + + + + Encounter [...] | | (Magnesium); | | | | [address] | | Dressing change | | | | Wally Burger Mailcode: | | (Neostar-regular); | | | | [facility] [place] | | Biopsy (BMBX) | | | | [place], | | | | | | [place] [address] | | | | | | [phone] | | | +--------+ + + + [...] patient and caregiver that we have the [facility] contact number for their medication change [...] Rd | | | | | | [place], [place] | | | | | | [address] | | | | | | [phone] | | | | | | | [...] BONE MARROW (LABEL) | | PDT | ([facility] | BM (LABEL) | | PDT | ([facility])- primary | results section. | | | | | induction failure | | + +--------+ + + + | CYTOGENETICS BONE | Routin | 11/22/2015 | Acute myeloid | | | MARROW ALL FISH | e | 9:03 AM | leukemia (AML), M4 | | | PANEL | | PDT | ([facility])- primary | | | | | | induction failure | | + +--------+ + + + | LEUKEMIA/LYMPHOMA | Routin | 11/22/2015 | Acute myeloid | | | MARKERS - BONE | e | 9:03 AM | leukemia (AML), M4 | | | MARROW | | PDT | ([facility] [...] | | RECONSTITUTION/ACTIV | | PDT | ([facility])- primary | | | ATE)BLOOD | | | induction failure | | + +--------+ + + + | LYMPHOCYTE | Urgent | 11/22/2015 | Acute myeloid | Results for this | | ACTIVATION(LYMPH | | 8:30 AM | leukemia (AML), M4 | procedure are in the | | RECONSTITUTION/ACTIV | | PDT | ([facility])- primary | results section. | | ATE),BLOOD [...] | BEACON | | PDT | ([facility])- primary | | | | | | induction failure | | + +--------+ + + + | NURSING | Routin | 11/22/2015 | Acute myeloid | | | COMMUNICATION #2 - | e | 8:29 AM | leukemia (AML), M4 | | | BEACON | | PDT | ([facility])- primary | | | | | | induction failure | | + +--------+ + + + | NURSING | Routin | 11/22/2015 | Acute myeloid | | | COMMUNICATION #1 - | e | 8:29 AM | leukemia (AML), M4 | | | BEACON | | PDT | [facility] [...] | BONE MARROW (PP) | | | ([facility])- primary | results section. | | | | | induction failure | | + +--------+ + + + | ENGRAFTMENT | Routin | 11/22/2015 | Acute myeloid | Results for this | | POST-TRANSPLANT, | e | | leukemia (AML), M4 | procedure are in the | | BONE MARROW | | | ([facility])- primary | results section. | | | | | induction failure | | + +--------+ + + + | GENETRAILS AML/MDS | Routin | 11/22/2015 | Acute myeloid | Results for this | | GENE MUTATION PANEL, | e | | leukemia (AML), M4 | procedure are in the | | BM (PP) | | | ([facility])- primary | results section. | | | | | induction failure | | + +--------+ + + + | GENETRAILS AML/MDS | Routin | 11/22/2015 | Acute myeloid | Results for this | | GENE MUTATION PANEL, | e | | leukemia (AML), M4 | procedure are in the | | BM | | | ([facility])- primary | results section. | | | | | induction failure | | + +--------+ + + + | CYTOGENETICS BONE | Routin | 11/22/2015 | Acute myeloid | Results for this | | MARROW CHROMOSOME | e | | leukemia (AML), M4 | procedure are in the | | ANALYSIS W/ REFLEX | | | ([facility])- primary | results section. | | FISH (PP) | | | induction failure | | + +--------+ + + + | LEUKEMIA/LYMPHOMA | Routin | 11/22/2015 | Acute myeloid | Results for this | | MARKERS - BONE | e | | leukemia (AML), M4 | procedure are in the | | MARROW (PP) | | | ([facility])- primary | results section. | | | | | induction failure | | + +--------+ + + + | LEUKEMIA/LYMPHOMA | Routin | 11/22/2015 | Acute myeloid | Results for this | | MARKERS - BONE | e | | leukemia (AML), M4 | procedure are in the | | MARROW | | | ([facility])- primary | results section. | | | | | induction failure | | + +--------+ + + + | CYTOGENETICS BONE | Routin | 11/22/2015 | Acute myeloid | Results for this | | MARROW CHROMOSOME | e | | leukemia (AML), M4 | procedure are in the | | ANALYSIS W/ REFLEX | | | ([facility])- primary | results section. | | FISH [...] | [facility] | [address] | [place] [address] | | | SERVICES, SPECIAL | [address]ARK [...] + + + + | SHAN | [address] | [place] [address] | | | DIAGNOSTIC | [address] [...] + + + + | SHAN | [address] | [place] [address] | | | DIAGNOSTIC | [address] [...] + + + + | YESSICA-VALENTE | [address] | [place] [address] | | | DIAGNOSTIC | [address] [...] MACARIO | [address] | [place], [place] | | | RUTHIE CARTER [facility] | [address] | [address] | | | TESTS | | | [...] | + + + + + | LIANAI | [address] | [place] [address] | | | SERVICES, SPECIAL | [address]ALLY [...] + + | [facility] | [address] | [place] [address] | | | SERVICES, CORE | PARK [...] + + | [facility] | [address] | [place] [address] | | | SERVICES, CORE | PARK [...] | | | characteristics determined by the [facility] | | | Molecular Diagnostic Center. It has not been cleared or approved by | | | the Food and Drug Administration. FDA approval is not required for | | | clinical use of this test, and therefore validation was done as | | | required under the requirements of the Clinical Laboratory Improvement | | | Act of 1988. The [facility] Molecular | | | Diagnostic Center is a fully licensed and/or accredited clinical | | | laboratory under CLIA, [facility], and the [facility]. | | + + + + + + + + | Performing | Address | City/State/Zipcode | Phone Number | | Organization | | | | + + + + + | [facility] | [address], | [place] [address] | | | DIAGNOSTIC | [address] [...] | [facility] | [address] | [place] [address] | | | SERVICES, SPECIAL | PARK [...] HEMATOPATHO | SOURCE OF SPECIMEN:A | | LASU | | | LOGY | Bone Marrow [...] | | | | | CD56, CD117, spzFO675 | | | | | | ([id number]), status | | | | | | [...] Myeloid | | | | | | pqvjswspia45%, erythroid | | | | | | [...] CD10 | | | | | | [id number] CD14 CD15 CD16 | | | | | | CD19 CD20 CD33 [id number] | | | | | | CD45 CD56 CD58 CD64 | | | | | | CD71 CD117 | | | | | | [id number] sLambda | | | | | | [...] | | | | | | Hector Kaporo | | | | | | Emanuel [...] + + + + | [facility] | [address] | [place] [address] | | | PATHOLOGY | [address] [...] Gene: | | | | | | [id number]: | | | | | | p.S185I [...] supplementary | | | | | | dae-fumxqlnijp-bbjfi | | | | | | assay [...] | | | | | | IL7R HFDC5408.1 | | | | | | c.554G>T hg19 chr5 | | | | | | [id number] G | | | | | | [...] | | | | | determined by [facility] | | | | | | [facility] | | | | | | Laboratories; CLIA # | | | | | | [id number]. It has not | | | | [...] | | | | | determined bythe [facility] | | | | | | [facility] [...] | | | | | | The [facility] | | | | | | DiagnosticsLaboratories | | | | | | are fully licensed by | | | | | | the state of [place] | | | | | | under CLIA and | | | | | | areaccredited by [employer] | | | | | | of [place] | | | | | | Pathologists [...] + + + + | SHAN | [address], | [place] [address] | | | DIAGNOSTIC | [address] [...] clinical | | | | | | awake overnight monitor. | | | | | | Rendering [...] + + | [facility] | [address] | [place] [address] | | | DIAGNOSTIC | [address] [...] NMDP | | | | | | 2824-2060-9Ihqiozzhnrwt | | | | | | indications: [...] | | | | | | STRloci [id number], vWA, | | | | | | FGA, [id number], D21S11, | | | | | | D18S51, U5R488, B32P389, | | | | | | [id number],and amelogenin | | | | | | [...] | | | | | determined bythe [facility] | | | | | | [facility] [...] | | | | | | The [facility] | | | | | | DiagnosticsLaboratories | | | | | | are fully licensed by | | | | | | the state of [place] | | | | | | under CLIA and | | | | | | areaccredited by College | | | | | | of [place] | | | | | | Pathologists [...] | SHAN | [address] | [place] [address] | | | DIAGNOSTIC | [address] | | | | LABORATORIES | | | | + + + + + documented in this encounter Visit Diagnoses + + | Diagnosis | + + | Acute myeloid leukemia (AML), 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
--- OUTSIDE RECORDS SUMMARY | ~2019-05-17 | XMS | Encounter Summary ---
Demographics + + + | Address | [address] | | | [place] [address] | + + + | Home Phone [...] Providers + +------+ + | Care Pattern Maker Name | Role | Phone | [...] | 2017 | | Hematologic | [address] [facility] | | | | | Malignancies at | [address] | | | | | Christian Barry | [place], [place] | | | | | [address] | [address] | | | | | Debi Burger Mailcode: | [phone] | | | | | [facility] | | | | | | [place], | | | | | | [place] [address] | | | | | | [phone] | | | +--------+--------+ + + + [...] Rd | | | | | | [place] | | | | | | [address] | | | | | | [phone] | | | | | | | | +--------+---------+ + + + documented as of this encounter Visit Diagnoses Not on filedocumented in this encounter"
--- OUTSIDE RECORDS SUMMARY | ~2019-05-17 | XMS | Encounter Summary ---
Demographics + + + | Address | [address] | | | [place] [address] | + + + | Home Phone [...] Providers + +------+ + | Care Dust Mop Maker Name | Role | Phone | + +------+ + | Zayda Hinton | PCP | | + +------+ + Encounter Details +--------+ + + + + | Date | Type | Department | Care Team | Description | +--------+ + + + + | 11/06/ | Pharmacy | Specialty Pharmacy | | | | 2016 | Visit | Services [address] | | | | | | [address] | | | | | | [place], [place] | | | | | | [address] | | | | | | [phone] | | | +--------+ + + + [...] Rd | | | | | | [place], [place] | | | | | | [address] | | | | | | [phone] | | | | | | | | +--------+---------+ + + + documented as of this encounter Visit Diagnoses Not on filedocumented in this encounter"
--- OUTSIDE RECORDS SUMMARY | ~2019-05-17 | XMS | Encounter Summary ---
Demographics + + + | Address | [address] | | | [place] [address] | + + + | Home Phone [...] Team Providers + +------+ + | Care Recreation Facility Attendant Name | Role | Phone | [...] | | | | | [place], | | | | | | | [place] | | | | | | | [address] | | | | | | | Phone: | | | | | | | [phone] | | | | | | | Fax: | | | | | | | [phone] | +--------+--------+ + + + + Encounter [...] (HCC) (Primary Dx) | | | | [facility] | [place], [place] | | | | | [address] | [address] | | | | | Debi Burger Mailcode: | [phone] | | | | | [facility] [facility] | | | | | | [place], | | | | | | [place] [address] | | | | | | [phone] | | | +--------+---------+ + + + [...] MM URD (DPB1 permissive antigen mismatch, male, 8559-7386-2) Identifying Data: Khurram Kelly is a 25 [...] his L ankle. He was evaluated at [facility] ED on 06/[address] angiogram [...] leukemia. He was referred to [facility] for further evaluation and man agement of his newly dx'd AML. Pt was admitted to [facility] on 05/26/15. Peripheral blood was [...] CD34, variable CD56, variable CD117, and dim VC041-vbjkr mickey; promonocyte immunophenotype (70% by flow): CD11b, [...] minimal nausea this past cycle. 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 Prednisone was increased back [...] FOR HEMATOLOGIC MALIGNANCIES AT [facility] [address] [facility] Mailcode: [place] [address] documented in this enc ounter [...] | 2019 | Visit | Malignancy | [address] [place] [address] | | | | | | [facility] | | | | | | [place], [place] | | | | | | [address] | | | | | | [phone] | | | | | | | | +--------+---------+ + + + documented as of this encounter Visit Diagnoses + + | Diagnosis | + + | 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
--- OUTSIDE RECORDS SUMMARY | ~2019-05-17 | XMS | Encounter Summary ---
Demographics + + + | Address | [address] | | | [place] [address] | + + + | Home Phone [...] Team Providers + +------+ + | Care Road Test Examiner Name | Role | Phone | [...] | 2017 | | Hematologic | [address] | | | | | Malignancies at | [address] | | | | | Christian Barry | [place], [place] | | | | | [address] | [address] | | | | | Debi Burger Mailcode: | [phone] | | | | | [facility] [facility] | | | | | | [place], | | | | | | [place] [address] | | | | | | [phone] | | | +--------+--------+ + + + [...] Rd | | | | | | [place] | | | | | | [address] | | | | | | [phone] | | | | | | | | +--------+---------+ + + + documented as of this encounter Visit Diagnoses Not on filedocumented in this encounter"
--- OUTSIDE RECORDS SUMMARY | ~2019-05-17 | XMS | Encounter Summary ---
Demographics + + + | Address | [address] | | | [place] [address] | + + + | Home Phone [...] Team Providers + +------+ + | Care Reefer Engineer Name | Role | Phone | [...] | | | | | achieved | [facility], [place] | [facility] | | | | | remission | [address] | [place] | | | | | | Phone: | Carmen[place] | | | | | | [phone] | [place], [place] | | | | | | Fax: | [address] | | | | | | [phone] | Phone: | | | | | | | [phone] | | | | | | | Fax: | | | | | | | [phone] | +--------+---------+ + + + + Encounter [...] | | | | Christian Barry | [place], [place] | transplant (HCC) | | | | [address] | [address] | (Primary Dx); S/P | | | | Debi Burger Mailcode: | [phone] | allogeneic bone | | | | [facility] [place] | | marrow transplant | | | | [place]a [place], | | ([facility]) | | | | [place] [address] | | | | | | [phone] | | | +--------+---------+ + + + [...] Please call and re-schedule the PFTs PFL [facility] 3rd floor Room [address] [place] [phone] "Clinic " We will start tapering some of the medications 1) Prednisone ---take 10 mg alternating with 5 mg every other day x 2 weeks Then take 5 mg every day x [address] Garcia would like you to gain some weight -- eat a normal diet Then return to see Dr. Garcia in a month Check out at the front office java developer today and make your next appointments. You can also call the flaco whitehead at [phone]. If you have any questions, or if you need prescription refills, or are experiencing any sym ptoms or side effects please call our public health staff nurse at [phone] documented in this encounter Progress Notes Yari Garcia MD - 08/20/2017 1:55 PM PST 08/20/17 [facility] Primary CHM MD: Yari Garcia MD Primary Oncologist: Yari Garcia MD Diagnosis: AMML, primary refractory Transplant Date: 08/27/15 Donor: MMURD (DPB1 permissive antigen mismatch, male, [id number]) Identifying Data: Khurram Kelly is a 27 [...] ankle. He was evaluated at [facility] ED on 06/[address] angiogram [...] CD34, variable CD56, variable CD117, and dim [id number]-canjl mickey; promonocyte immunophenotype (70% by flow): CD11b, [...] his right hip. 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 He initially responded but flared during taper. He also developed low-level nausea and abd discomfort concerning for GvHD, emp irically treated with oral non-absorbables with resolution. - He had tapered prednisone to 10 mg po daily when he developed a rash for which he was see n in the ED in [place] in late 01/21. Prednisone was increased back [...] PFTs that day Yari Garcia MD, MS Film Splicerglass presser [facility] [address] [place] [address] documented in this enc ounter Plan of [...] Rd | | | | | | [place], [place] | | | | | | [address] | | | | | | [phone] | | | | | | | [...] | [facility] | | considered for monitoring mcfp glycemic control in patients with: | LABORATORY [...] | + + + + + | [facility] | [address] | [place] [address] | | | SERVICES, SPECIAL | PARK [...]
--- OUTSIDE RECORDS SUMMARY | ~2019-05-17 | XMS | Encounter Summary ---
Demographics + + + | Address | [address] | | | [place] [address] | + + + | Home Phone [...] Providers + +------+ + | Care Home Teaching Grades 7 And 8 Teacher Name | Role | Phone | [...] | | | | | | [facility] [address] | | | | | | [place], | | | | | | [place] [address] | | | | | | [phone] | | | +--------+ + + + [...] 10/27/2015 2:28 PM PDTPatient in clinic to picking tech prescription and n otes that [...] Rd | | | | | | [place], [place] | | | | | | [address] | | | | | | [phone] | | | | | | | | +--------+---------+ + + + documented as of this encounter Visit Diagnoses + + | Diagnosis | + + | Acute myeloid leukemia (AML), M4 (HCC)- primary induction failure - Primary | + + documented in this encounter"
--- OUTSIDE RECORDS SUMMARY | ~2019-05-17 | XMS | Encounter Summary ---
Demographics + + + | Address | [address] | | | [place] [address] | + + + | Home Phone [...] Team Providers + +------+ + | Care Focusing Machine Operator Name | Role | Phone [...] | 2017 | | Hematologic | [address] [facility] | | | | | Malignancies at | [address] | | | | | Christian Barry | [place], [place] | | | | | [address] | [address] | | | | | Debi Burger Mailcode: | [phone] | | | | | [facility] | | | | | | [place], | | | | | | [place] [address] | | | | | | [phone] | | | +--------+--------+ + + + [...] Rd | | | | | | [place] | | | | | | [address] | | | | | | [phone] | | | | | | | | +--------+---------+ + + + documented as of this encounter Visit Diagnoses Not on filedocumented in this encounter"
--- OUTSIDE RECORDS SUMMARY | ~2019-05-17 | XMS | Encounter Summary ---
Demographics + + + | Address | [address] | | | [place] [address] | + + + | Home Phone [...] Team Providers + +------+ + | Care Powder Press Operator Name | Role | Phone [...] | | | | | remission | [address] | [facility] | | | | | | Phone: | [facility] | | | | | Procedures | [phone] | [place], [place] | | | | | Post BMT | Fax: | [address] | | | | | Auth to | [phone] | Phone: | | | | | included | | [phone] | | | | | facility, | | Fax: | | | | | diagnostics, | | [phone] | | | | | office | [...] Hematologic | [address] | leukemia (AML), M4 | | | | Malignancies at | [address] | (HCC)- primary | | | | [facility] | [place], [place] | induction failure | | | | [address] | [address] | (Primary Dx) | | | | Debi Burger Mailcode: | [phone] | | | | | [facility] | | | | | | Pavilion [place], | | | | | | [place] [address] | | | | | | [phone] | | | +--------+---------+ + + + [...] Progress Notes Aspen Cummins FNP - 11/22/2015 7:26 AM PDT11/22/2015 [facility] Procedure Note Procedure: Bone marrow aspirate and biopsy with anxiolysis. Indications: Day +87 s/p unrelated donor [facility] transplant for primary refractory acute myel oid leukemia; evaluate disease status. Team Pause: At 0920, prior to the beginning of the procedure the team paused to verify the patient's identity, as well as the procedure to be performed and the correct side/site. Al l equipment required was ready and available. The patient was positioned appropriately. The following team members were present during the team pause: Deedee Benites RN; ORLY Yanes. Description: Written consent for bone marrow aspirate [...] arinized syringe and submitted for flow cytometry, cytogenetics with reflex FISH. A third a spirate was obtained in an unheparinized syringe and submitted for GeneTrails. A fourth aspi rate was obtained in an unheparinized syringe and submitted for VNTR. A total of 12 mL of m arrow was aspirated. The [...] ORLY Yanes [facility] AT [address] Mailcode: [place] [phone] documented in this enc ounter Plan of [...] Rd | | | | | | [place], [place] | | | | | | [address] | | | | | | [phone] | | | | | | | | +--------+---------+ + + + documented as of this encounter Procedures + +--------+ + + + | Procedure Name | Priori | Date/Time | Associated Diagnosis | Comments | | | ty | | | | + +--------+ + + + | MD BONE MARROW ASP | Routin | 11/22/2015 | Acute myeloid | | | SAME DAY BIOPSY | e | 9:50 AM | leukemia (AML), 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 | | | | | | induction failure | | + +--------+ + + + | MD BONE MARROW BX, | Routin | 11/22/2015 | Acute myeloid | | | NEEDLE/TROCAR | e | 9:50 AM | leukemia (AML), M4 | | | | | PDT | ([facility])- primary | | | | | | induction failure | | + +--------+ + + + | IMMUNOLOGY CASE | Routin | 11/22/2015 | | Results for this | | | e | | | procedure are in the | | | | | | results section. | + +--------+ + + + documented in this encounter Results IMMUNOLOGY CASE (11/22/2015) + + + + + + [...] | | | | | blood, flow cytometric | | | | | | analysis: - Normal | | | | | | total T cells with | | | | | | increased CD8+ T cell | | | | | | subsets - Normal | | | | | | total NK cells - | | | | | | Decreased B cells with | | | | | | decreased na ve B cells | | | | | | - Minimal immune | | | | | | activation | | | | | | Comment: Majority of | | | | | | the B-cells are | | | | | | IgD-/CD27-, which could | | | | | | representhematogone, | | | | | | precursor B-cells. | | | | | | Clinical follow-up and | | | | | | correlation | | | | | | areindicated. Case | | | | | | seen by:Ysabel | | | | | | Luisa, | | | | | | M.DAna/Hematopathology | | | | | | Rebecca Cain, | | | | | | /Hematopathologist | | | | | | Clinical History: | | | | | | This patient is a 25 | | | | | | year old with AMML, | | | | | | statuspost-transplant | | | | | | (day 0 = 08/27/2015). | | | | | | The clinician requests | | | | | | an evaluationof | | | | | | peripheral blood | | | | | | lymphocytes for evidence | | | | | | of reconstitution and | | | | | | immuneactivation. | | | | | | Laboratory | | | | | | Data:11/22/2015 08:29AM | | | | | | | | | | | | Ref Range | | | | | | ValueWHITE CELL COUNT | | | | | | 4.40-11.00 K/cu mm | | | | | | 4.14 (L)RED CELL COUNT | | | | [...] 6.3 | | | | | | (H)NEUTROPHIL # | | | | | [...] 1+(10-25cells/HPF) | | | | | | Flow [...] | | | | | CD4, CD8, AA2bohf,CD19, | | | | | | CD25, [...] (CD3+) | | | | | | 83 1440 | | | | | | 55-85% 700-3228BP3+ | | | | | | CD4+ | | | | | | 22 385 | | | | | | 28-57% 300-2005TV6+ | | | | | | CD8+ | | | | | | 59 1018 | | | | | | 10-39% | | | | | | 200-900CD3+CD4-CD8-(Do | | | | | | ub.neg) 2 NA | | | | | | <6%CD3+CD4+8+ | | | | | | (Doub.pos) 0.2 NA | | | | | | | | | | | | <2%CD4+CD45RO- | | | | | | (na ve) 2 NA | | | | | | 8-50%NKT | | | | | | | | | | | | 5 | | | | | | <7%NK cells | | | | | | (CD56+CD3-) 14 | | | | | | 235 5-28% | | | | | | 71-499Total B-cells | | | | | | (CD19+) 2 34 | | | | | | 6-19% 100-500 | | | | | | | | | | | | % | | | | | | of B cells % of | | | | | | B-cellsIgD+ CD27- Na ve | | | | | | B-cells 15 | | | | | | 50-80%IgD+ | | | | | | CD27+ Non-switched | | | | | | memory B 4 | | | | | | 5-21%IgD- CD27+ | | | | | | Switched, memory B | | | | | | 14 | | | | | | 5-24%Activation | | | | | | Indicators | | | | | | | | | | | | Patient Results | | | | | | Reference | | | | | | RangeCD4:CD8 ratio | | | | | | 0.4 | | | | | | 1.0-3.6 | | | | | | | | | | | | %Lymphs | | | | | | | | | | | | %LymphsCD3+CD4+WF8jrcq | | | | | | + 0.2 | | | | | | | | | | | | <1.5%CD3+HLA-DR+ | | | | | | 0.4 | | | | | | | | | | | | <10%CD4+CD25+ | | | | | | 3 | | | | | | | | | | | | <7%XW4mlju+CD69+ | | | | | | 1 | | | | | | <1% | | | | | | | | | | | | | | | | | | % of CD4+ T | | | | | | cellsCD4+CD25+ bright (T | | | | | | regs)3 | | | | | | <10% | | | | | | Six activation | | | | | | indicators are evaluated | | | | | | and levels shown in the | | | | | | data tableabove. The | | | | | | findings are evaluated | | | | | | according to the | | | | | [...] Signed | | | | | | 11/29/2015 5:06PM | | | | + + + + + + + + | Specimen | + + | | + + + + + + + | Performing | Address | City/State/Zipcode | Phone Number | | Organization | | | | + + + + + | [facility] | [address] | [place] [address] | | | PATHOLOGY | [address] | | | + + + + + documented in this encounter Visit Diagnoses + + | Diagnosis | + + | Acute myeloid leukemia (AML), M4 (HCC)- primary induction failure - Primary | + + documented in this encounter"
--- OUTSIDE RECORDS SUMMARY | ~2019-05-17 | XMS | Encounter Summary ---
Demographics + + + | Address | [address] | | | [place] [address] | + + + | Home Phone [...] Team Providers + +------+ + | Care Property Damage Claims Adjustor Name | Role | Phone | + [...] [address] | | | | | | [place], [place] | | | | | | [address] | | | | | | [phone] | | | +--------+ + + + [...] Rd | | | | | | [place], [place] | | | | | | [address] | | | | | | [phone] | | | | | | | | +--------+---------+ + + + documented as of this encounter Visit Diagnoses Not on filedocumented in this encounter"
--- OUTSIDE RECORDS SUMMARY | ~2019-05-17 | XMS | Encounter Summary ---
Demographics + + + | Address | [address] | | | [place] [address] | + + + | Home Phone [...] Team Providers + +------+ + | Care Sample Shoe Inspector And Reworker Name | Role | Phone | + [...] [address] | | | | | [place] | | [address] | | | | | [address] | | [address] [facility] | | | | | INJECTION, 1 | | [place] | | | | | [place] | | [address] | | | | | CHM,IV | | Phone: | | | | | INFSN,1 HR | | [phone] | | | | | [place] CHM,IV | | Fax: | | | | | INFSN,ADDL | | [phone] | | | | | HR | [...] | | | | | | [facility] [address] | | | | | | [place], | | | | | | [place] [address] | | | | | | [phone] | | | +--------+ + + + [...] 2018 | Visit | Malignancy | [address] [facility] | | | | | | [address] | | | | | | [place], [place] | | | | | | [address] | | | | | | [phone] | | | | | | | [...]
--- OUTSIDE RECORDS SUMMARY | ~2019-05-17 | XMS | Encounter Summary ---
Demographics + + + | Address | [address] | | | [place] [address] | + + + | Home Phone [...] Providers + +------+ + | Care Manager Science Name | Role | Phone | + [...] [address] | | | | | [address] | [place], [place] | | | | | Mailcode: [place] | [address] | | | | | for Health and | [phone] | | | | | [place] [address] | | | | | | [place], [place] | | | | | | [address] | | | | | | [phone] | | | +--------+ + + + [...] Rd | | | | | | [place], [place] | | | | | | [address] | | | | | | [phone] | | | | | | | | +--------+---------+ + + + documented as of this encounter Results [facility] (05/15/2019 [...] | | | LABORATORY | | | [place] | | | SERVICES, | | | [...] [facility] | [address] | [place] [address] | | | SERVICES, [place] [facility] | | | | | HEALTH [...] [facility] | [address] | [place] [address] | | | SERVICES, [place] [facility] | | | | | HEALTH [...]
--- OUTSIDE RECORDS SUMMARY | ~2019-05-17 | XMS | Encounter Summary ---
Demographics + + + | Address | [address] | | | [place] [address] | + + + | Home Phone [...] Providers + +------+ + | Care Director Safety Council Name | Role | Phone | + [...] | | | [address] | [place], [place] | | | | | [address] Mailcode: | [address] | | | | | [facility] | [phone] | | | | | [place], | | | | | | [place] [address] | | | | | | [phone] | | | +--------+ + + + [...] 2019 | Visit | Malignancy | [address] [facility] | | | | | | [address] | | | | | | [place] | | | | | | [address] | | | | | | [phone] | | | | | | | | +--------+---------+ + + + documented as of this encounter Visit Diagnoses Not on filedocumented in this encounter"
--- OUTSIDE RECORDS SUMMARY | ~2019-05-17 | XMS | Encounter Summary ---
Demographics + + + | Address | [address] | | | [place] [address] | + + + | Home Phone [...] Team Providers + +------+ + | Care Ordering Machine Operator Name | Role | Phone [...] + + | 08/18/ | Hospital | [facility] [address] | Yari Garcia MD | | | 2016 - | Encounter | [address] | [address] | | | | | Mailcode: [id number] | [address] | | | 09/12/ | | [place] | [place], [place] | | | 2015 | | [place], [place] | [address] | | | | | [address] | [phone] | | | | | [phone] | | | | | | | Lobo Rizzo, | | | | | | Daniel Obrien, | | | | | | [address] | | | | | | [address] | | | | | | [place], [place] | | | | | | [address] | | | | | | [phone] | | | | | | | | | | | | Lamin Funes MD,PhD | | | | | | [address] | | | | | | [address] | | | | | | [place], [place] | | | | | | [address] | | | | | | [phone] | | | | | | | [...] in this encounter Discharge Summaries Wilian Apodaca, SUPERVISOR METAL [employer]ANGING - 09/13/2015 4:16 PM PSTFormatting of this note might be different f rom the original. INPATIENT PROVIDER DISCHARGE SUMMARY Attending Physician: Yari Garcia MD [facility] Physician: Yari Garcia MD PCP: Pending Pcp ADDITION Hematological Malignancy: Primary Refractory AML Conditioning regimen: tBuCy Date of transplant: 08/27/2015 (two day 0s) Donor: MM URD (DPB1 permissive antigen mismatch, male, [id number]) Reason for admission: tBuCy MMURD for refractory [...] close follow up in short-term clinic at [facility] for Hematologic Malignancies. -Refractory AML: s/p tBuCy [...] oropharynx (grade 3 at worst). O ff GROUND LAYER, tolerating oral pain meds, and increasing PO intake. 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 Improved on amlodipine. -Rash: derm biopsy 09/06/15 - SUBTLE VACUOLAR INTERFACE DERMATITIS, the changes are consiste nt with eruption of lymphocyte recovery and early mild ekmbw-ihjrhy-sphq disease. However g iven pancytopenia at that [...] most consistent with inflammatory/uveitic etiology. [facility] with ophthalmology as an outpatient at [facility], scheduled for 09/15/15 at 10 am. SUMMARY [...] his L ankle. He was evaluated at [place] ED on 06/[address] angiogram negative [...] myelomonocytic leukemia. He was referred to [facility] for further evaluation and man agement of his newly dx'd AML. Pt was admitted to [facility] on 05/26/15. Peripheral blood was sent for [...] CD34, variable CD56, variable CD117, and dim ND197-qlbww mickey; promonocyte immunophenotype (70% by flow): CD11b, [...] up with ophthalmology as an outpatient at [facility], schedule d for 09/15/15 at 10 am. [...] now healing with count recovery. Received dilaudid GROUND LAYER until 09/10. Received Leucovorin rescue after MTX doses Renal: #VIKI: with rise in sCr to 1.35 noted on 09/07/15, most likely from supratherapeutic Vancomyci n level in setting concurrent CNI. sCr wnl with holding of Tacrolimus, stopping of Vancomyc in, and NS 500mL bolus x1. Monitor. Neuro/Psych: #Depression - Zoloft CERAMICS ARTIST -Zoloft 25 mg daily #Anxiety - Xanax PRN CERAMICS ARTIST -Xanax 1 mg TID PRN Dermatology: #Rash: derm biopsy 09/06/15 - SUBTLE VACUOLAR INTERFACE DERMATITIS, the changes are consiste nt with eruption of lymphocyte recovery and early mild yaqbi-fyrbsl-pwmq disease. However g iven pancytopenia at that time, skin GvHD was less likely and rash was thought to be due to Zosyn. Rash has not progressed. Infectious Disease: #Neutropenic Fever/Pneumonia: first noted on 08/30/15, last fever 09/07/15. Blood cultures wi th NGTD. RVP 09/06/15 - negative. CT chest 09/07/15 - Tree in bud nodularity within the ribbon sweatband operator ior basal RLL, medial RML and posterior RUL most consistent with multifocal bacterial pneumo nidu. -ID consulted for assistance with management given [...] the risk of infection. Your nurse or manager integrated will provide you with information about foods [...] Orders and Instructions Call the BMT clinic ([phone]) or BMT person on-call ([phone]) for: Any temp > 100.4 Nausea/vomiting unresponsive [...] Hematologic Malignancies at [facility] [phone] Center for H 09/14/2015 1:15 PM Lizzie Leavitt; [facility] MA SUPPORT Center for Hematologic Malignancies at [facility] [phone] Center for H 09/15/2015 10:00 AM Michael Carrera [facility]/Ophthalmology at [facility] [phone] [facility] 09/17/2015 12:10 PM CHM INFUSION NURSE; M INFUSION Center for Hematologic Malignancies at [facility] [phone] Center for H 09/17/2015 12:45 PM Lizzie Leavitt; [facility] MA SUPPORT Center for Hematologic Malignancies at [facility] [phone] Center for H 09/21/2015 10:40 AM CHM INFUSION NURSE; M INFUSION Center for Hematologic Malignancies at [facility] [phone] Center for H 09/21/2015 11:15 AM Lizzie Leavitt; [facility] MA SUPPORT Center for Hematologic Malignancies at [facility] [phone] Center for H 09/24/2015 8:10 AM CHM INFUSION NURSE; CHM INFUSION Center for Hematologic Malignancies at [facility] [phone] Center for H 09/24/2015 8:45 AM Lizzie Leavitt; [facility] MA SUPPORT Center for Hematologic Malignancies at [facility] [phone] Center for H ORLY Arteaga [facility] [address] [facility] Mailcode: Kpv14 [place] [address] Discharging Provider: ORLY Arteaga Attending Physician: Yari [...] if you have any questions! BMT CLINIC ([facility]) during clinic hours (M-F 8:30-4:30): [phone] BMT CLINIC ([facility]) at all other times: [phone] 14KPV: [phone] documented in this encounter Progress Notes Yari [...] orders for today. Yari Garcia MD, M.S. [facility] for Hematologic Malignancies Attending [...] - very high risk disease, transplant in [facility] -day 30 marrow for disease reassessment -plan [...] and orders for today. [facility] Attending physician s total time is 35 minutes, >50% spent counseling and coordination of care. Today, as part of my counseling and coordination of care, I reviewed data, reviewed today's plan, and discussed rationale for remaining in the hospital for additional monitorin g while risk of bleeding remains high. [facility] DEPARTMENT: [id number] - [facility] FACULTY MPV Place of Service: - Inpatient Date of Service: 09/12/2015 Modifiers: None Suggested CPT: 14416 - Subsequent, Detailed/High complex 35 min ######################################################### [...] for Hematologic Malignancies Attending: Yari Garcia MD [facility] Physician: Yari Garcia MD PCP: Pending Pcp ADDITION Date of Admission: 08/18/2015 Conditioning regimen: tBuCy Date of transplant: 08/27/2015 (two day 0s) Donor: MM URD (DPB1 permissive antigen mismatch, male, [id number]) Reason for admission: tBuCy MMURD for refractory [...] worst), still with ulcers posterior pharynx. Off GROUND LAYER, liudmila ating oral pain meds. Increasing PO [...] L ankle. He was evaluated at [facility] ED on 06/[address] angiogram negative [...] myelomonocytic leukemia. He was referred to [facility] for further evaluation and man agement of his newly dx'd AML. Pt was admitted to [facility] on 05/26/15. Peripheral blood was sent for [...] CD34, variable CD56, variable CD117, and dim BC463-abfww mickey; promonocyte immunophenotype (70% by flow): CD11b, [...] now healing with count recovery. Received dilaudid GROUND LAYER until 09/10. -Received Leucovorin rescue after MTX doses Renal: #VIKI: with rise in sCr to 1.35 noted on 09/07/15, most likely from supratherapeutic Vancomyci n level in setting concurrent CNI. sCr wnl with holding of Tacrolimus, stopping of Vancomyc in, and NS 500mL bolus x1. -Monitor daily Neuro/Psych: #Depression - Zoloft CERAMICS ARTIST -Zoloft 25 mg daily #Anxiety - Xanax PRN CERAMICS ARTIST -Xanax 1 mg TID PRN Infectious Disease: #Neutropenic Fever/Pneumonia: first noted on 08/30/15, last fever 09/07/15. Blood cultures wi th NGTD. RVP 09/06/15 - negative. CT chest 09/07/15 - Tree in bud nodularity within the ribbon sweatband operator ior basal RLL, medial RML and posterior [...] Sunday. [facility] [address] [place] [address] Mailcode: Uhn73a [facility] [place] [address] Yari Moore MD - 09/11/2015 6:32 PM [...] orders for today. Yari Garcia MD, M.S. [facility] Attending physician s total time is 35 minutes, >50% spent counseling and coordination of care. Today, as part of my counseling and coordination of care, I reviewed data, reviewed today's plan, and discussed possible discharge, follow up plans. [facility] DEPARTMENT: [id number] - [facility] FACULTY MPV Place of Service: - Inpatient Date of Service: 09/11/2015 Modifiers: None Suggested CPT: 06457 - Subsequent, Detailed/High complex 35 min ######################################################### [...] for Hematologic Malignancies Attending: Lobo Rizzo MD [facility] Physician: Yari Garcia MD PCP: Pending Pcp ADDITION Date of Admission: 08/18/2015 Conditioning regimen: tBuCy Date of transplant: 08/27/2015 (two day 0s) Donor: MM URD (DPB1 permissive antigen mismatch, male, [id number]) Reason for admission: tBuCy MMURD for refractory [...] pharynx. Continue frequ ent oral care, stop GROUND LAYER today and transition to oral oxycodone. -HTN: [...] L ankle. He was evaluated at [facility] ED on 06/[address] angiogram negative [...] myelomonocytic leukemia. He was referred to [facility] for further evaluation and man agement of his newly dx'd AML. Pt was admitted to [facility] on 05/26/15. Peripheral blood was sent for [...] CD34, variable CD56, variable CD117, and dim VK694-qshzp mickey; promonocyte immunophenotype (70% by flow): CD11b, [...] now healing with count recovery. Received dilaudid GROUND LAYER until 09/10. -Received Leucovorin rescue after MTX doses Renal: #VIKI: with rise in sCr to 1.35 noted on 09/07/15, most likely from supratherapeutic Vancomyci n level in setting concurrent CNI. sCr now on the downward trend with holding of Tacrolimus , stopping of Vancomycin, and NS 500mL bolus x1. -Monitor daily Neuro/Psych: #Depression - Zoloft CERAMICS ARTIST -Zoloft 25 mg daily #Anxiety - Xanax PRN CERAMICS ARTIST -Xanax 1 mg TID PRN Infectious Disease: #Neutropenic Fever/Pneumonia: first noted on 08/30/15, last fever 09/07/15. Blood cultures wi th NGTD. RVP 09/06/15 - negative. CT chest 09/07/15 - Tree in bud nodularity within the ribbon sweatband operator ior basal right lower lobe, medial right [...] hospitalization. [facility] [address] [place] [address] Mailcode: Uhn73a [facility] [place] [address] Abdiel Goins MD - 09/10/2015 7:31 PM [...] Ref Range: 0.70-1.30 mg/dL 1.09 EGFR - MONTENEGRIN Latest Ref Range: >60 mL/min >60 EGFR NON -MONTENEGRIN Latest Ref Range: >60 mL/min >60 GLUCOSE, [...] Unknown PLATELETS PHERESI... PRODUCT UNIT # Unknown [id number] UNIT ABO Unknown A UNIT RH Unknown POS STATUS OF UNIT Unknown Available for Issue EXPIRATION DATE Unknown [id number] BLOOD TYPE BARCODE Unknown 6200 Please see [...] 25-50 mg 25-50 mg intravenous Q4H PRN omcvehprsgNUTUD-fzwnlcsbj-QMEALV (SPECIAL MOUTHWASH) suspension (compound) 10-15 mL 10 [...] in preservative free NaCl 0.9% 50 mL GROUND LAYER infusion intravenous CON TINUOUS immune globulin (IGG) [...] moment premed with steroids Lobo Rizzo MD [address] [facility] Mailcode: v14 [place] [address] arie Tracey PA - 09/10/2015 6:35 PM PSTFormatting of this note might be different from the shanna l. Daily NPP Note - Transplant Admit [facility] Attending: Lobo Rizzo MD [facility] Physician: Yari Garcia MD PCP: Pending Pcp ADDITION Date of Admission: 08/18/2015 Conditioning regimen: tBuCy Date of transplant: 08/27/2015 (two day 0s) Donor: MM URD (DPB1 permissive antigen mismatch, male, [id number]) Reason for admission: tBuCy MMURD for refractory [...] pharynx. Continue frequ ent oral care, weaning GROUND LAYER today with improved pain. 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 [...] his L ankle. He was evaluated at [place] ED on 06/[address] angiogram negative [...] myelomonocytic leukemia. He was referred to [facility] for further evaluation and man agement of his newly dx'd AML. Pt was admitted to [facility] on 05/26/15. Peripheral blood was sent for [...] CD34, variable CD56, variable CD117, and dim JH447-axyng mickey; promonocyte immunophenotype (70% by flow): CD11b, [...] count recovery -Continue frequent oral care -Dilaudid GROUND LAYER for pain control -TPN for nutritional support -Leucovorin rescue after MTX doses Renal: #VIKI: with rise in sCr to 1.35 noted on 09/07/15, most likely from supratherapeutic Vancomyci n level in setting concurrent CNI. sCr now on the downward trend with holding of Tacrolimus , stopping of Vancomycin, and NS 500mL bolus x1. -Monitor daily Neuro/Psych: #Depression - Zoloft CERAMICS ARTIST -Zoloft 25 mg daily #Anxiety - Xanax PRN CERAMICS ARTIST -Xanax 1 mg TID PRN Infectious Disease: #Neutropenic Fever/Pneumonia: first noted on 08/30/15, last fever 09/07/15. Blood cultures wi th NGTD. RVP 09/06/15 - negative. CT chest 09/07/15 - Tree in bud nodularity within the ribbon sweatband operator ior basal right lower lobe, medial right [...] hospitalization. [facility] [address] [place] [address] Mailcode: Uhn73a [facility] [address] Abdiel Goins MD - 09/09/2015 8:48 PM [...] Ref Range: 0.70-1.30 mg/dL 1.16 EGFR - MONTENEGRIN Latest Ref Range: >60 mL/min >60 EGFR NON -MONTENEGRIN Latest Ref Range: >60 mL/min >60 GLUCOSE, [...] PHERESI... PLATELETS PHERESI... PRODUCT UNIT # Unknown [id number] UNIT ABO Unknown A A UNIT RH Unknown POS POS STATUS OF UNIT Unknown Issued Issued EXPIRATION DATE Unknown [id number] BLOOD TYPE BARCODE Unknown 1979 1874 Please see the Advanced Practice Provider documentation [...] 25-50 mg 25-50 mg intravenous Q4H PRN joamonymrbPXGRU-hwcsxksdq-CLMMCA (SPECIAL MOUTHWASH) suspension (compound) 10-15 mL 10 [...] in preservative free NaCl 0.9% 50 mL GROUND LAYER infusion intravenous CON TINUOUS immune globulin (IGG) [...] moment premed with steroids Lobo Rizzo MD [place] [id number] [facility] Mailcode: Kpv14 [place] [address] Wilian Laura F ORDER RUNNER - 09/09/2015 7:37 PM PST Daily NPP Note - Transplant Admit [facility] Attending: Lobo Rizzo MD [facility] Physician: Yari Garcia MD PCP: Pending Pcp ADDITION Date of Admission: 08/18/2015 Conditioning regimen: tBuCy Date of transplant: 08/27/2015 (two day 0s) Donor: MM URD (DPB1 permissive antigen mismatch, male, [id number]) Reason for admission: tBuCy MMURD for refractory [...] IV to PO. Continue frequent oral care, GROUND LAYER and TPN. Continues Leucovorin rescue after MTX [...] PMH of pericarditis who was [place] [facility] [place] 03[place]13[place]15 (the night of his [...] L ankle. He was evaluated at [facility] ED on 06/[address] angiogram negative [...] myelomonocytic leukemia. He was referred to [facility] for further evaluation and man agement of his newly dx'd AML. Pt was admitted to [facility] on 05/26/15. Peripheral blood was sent for [...] CD34, variable CD56, variable CD117, and dim GE288-ddndl mickey; promonocyte immunophenotype (70% by flow): CD11b, [...] count recovery -Continue frequent oral care -Dilaudid GROUND LAYER for pain control -TPN for nutritional support -Leucovorin rescue after MTX doses Renal: #VIKI: with rise in sCr to 1.35 noted on 09/07/15, most likely from supratherapeutic Vancomyci n level in setting concurrent CNI. sCr now on the downward trend with holding of Tacrolimus , stopping of Vancomycin, and NS 500mL bolus x1. -Monitor daily Neuro/Psych: #Depression - Zoloft CERAMICS ARTIST -Zoloft 25 mg daily #Anxiety - Xanax PRN CERAMICS ARTIST -Xanax 1 mg TID PRN Infectious Disease: #Neutropenic Fever/Pneumonia: first noted on 08/30/15, last fever 09/07/15. Blood cultures wi th NGTD. RVP 09/06/15 - negative. CT chest 09/07/15 - Tree in bud nodularity within the ribbon sweatband operator ior basal right lower lobe, medial right [...] PBSCT. Anticipate 3-4 week hospitalization. ORLY Arteaga [place] [address] [facility] Mailcode: Kpv14 [place] [address] Lobo Goins MD - 09/08/2015 10:07 PM [...] mild hyperpigmented with faint erythematous rash on zili-vgf-ipezltlo reaction, post d iffuse erythematous rash but [...] eruption of lymphocyte recovery and early mild wfufr-pflwap-taic disease. Similar histologic changes may be seen [...] 25-50 mg 25-50 mg intravenous Q4H PRN ekeorvtvwdCELZP-elkexgojm-IEKPIY (SPECIAL MOUTHWASH) suspension (compound) 10-15 mL 10 [...] in preservative free NaCl 0.9% 50 mL GROUND LAYER infusion intravenous CON TINUOUS immune globulin (IGG) [...] with patient and his Lobo Rizzo MD [facility] [address] [facility] Mailcode: Kpv14 [place] [address] Mikayla Schwarz MD - 09/08/2015 2:07 PM [...] eruption of lymphocyte recovery and early mild qdpsd-nelwtw-cttv disease. Similar histologic changes may be seen in morbilliform eruptions of variable etiology including viral exanthem. While not required for a diagnosis, the paucity of eosinophils probably makes drug eruption less likely. Please contact us with any further questions. Sujata King MD PGY-4, Department of Dermatology [facility] Electronically signed by Sujata King MD at 2015 12:18 PM PSTKwWilian orourke, SUPERVISOR [employer] - 09/08/2015 10:24 AM PSTFormatting of this note migh t be different from the original. Daily NPP Note - Transplant Admit [facility] Attending: Lobo Rizzo MD [facility] Physician: Yari Garcia MD PCP: Pending Pcp ADDITION Date of Admission: 08/18/2015 Conditioning regimen: tBuCy Date of transplant: 08/27/2015 (two day 0s) Donor: MM URD (DPB1 permissive antigen mismatch, male, [id number]) Reason for admission: tBuCy MMURD for refractory [...] -Mucositis: grade 3-4. Continue frequent oral care, GROUND LAYER and TPN. Continues Leucovorin res cue after [...] PMH of pericarditis who was in his [facility] [place] 03/13/15 (the night of his [...] L ankle. He was evaluated at [facility] ED on 06/[address] angiogram negative [...] myelomonocytic leukemia. He was referred to [facility] for further evaluation and man agement of his newly dx'd AML. Pt was admitted to [facility] on 05/26/15. Peripheral blood was sent for [...] CD34, variable CD56, variable CD117, and dim GC120-eaoki mickey; promonocyte immunophenotype (70% by flow): CD11b, [...] at worst) -Continue frequent oral care -Dilaudid GROUND LAYER for pain control -TPN for nutritional support [...] stopped effective 09/07/15 Neuro/Psych: #Depression - Zoloft CERAMICS ARTIST -Zoloft 25 mg daily #Anxiety - Xanax PRN CERAMICS ARTIST -Xanax 1 mg TID PRN Infectious Disease: [...] PBSCT. Anticipate 3-4 week hospitalization. ORLY Arteaga [facility] [address] [facility] Mailcode: Kpv14 [place], [place] [id number] Lobo Goins MD - 09/07/2015 10:44 PM [...] Intake/Output Summary (Last 24 hours) at 09/07/15 1465 Last data filed at 09/07/151999 Gross per [...] 0.70-1.30 mg/dL 1.30 1.35 (H) EGFR - MONTENEGRIN Latest Ref Range: >60 mL/min >60 >60 EGFR NON -MONTENEGRIN Latest Ref Range: >60 mL/min >60 >60 [...] Unknown PLATELETS PHERESI... PRODUCT UNIT # Unknown [id number] UNIT ABO Unknown A UNIT RH Unknown POS STATUS OF UNIT Unknown Issued FINDINGS Unknown Febrile, non-hemo... EXPIRATION DATE Unknown [id number] BLOOD TYPE BARCODE Unknown 6200 CT CHEST [...] 25-50 mg 25-50 mg intravenous Q4H PRN ebdjskyfiiCGFLY-norsrheim-NAPHZY (SPECIAL MOUTHWASH) suspension (compound) 10-15 mL 10 [...] in preservative free NaCl 0.9% 50 mL GROUND LAYER infusion intravenous CON TINUOUS immune globulin (IGG) [...] panel Thrombocytopenia-give irradiated platelets wWilian orourke, Yoli ORDER RUNNER - 09/07/2015 7:02 PM PST Daily NPP Note - Transplant Admit [facility] Attending: Lobo Rizzo MD [facility] Physician: Yari Garcia MD PCP: Pending Pcp ADDITION Date of Admission: 08/18/2015 Conditioning regimen: tBuCy Date of transplant: 08/27/2015 (two day 0s) Donor: MM URD (DPB1 permissive antigen mismatch, male, [id number]) Reason for admission: tBuCy MMURD for refractory [...] -Mucositis: grade 3-4. Continue frequent oral care, GROUND LAYER and TPN. Plan for Leucovorin resc ue [...] his L ankle. He was evaluated at [place] ED on 06/[address] angiogram negative [...] myelomonocytic leukemia. He was referred to [facility] for further evaluation and man agement of his newly dx'd AML. Pt was admitted to [facility] on 05/26/15. Peripheral blood was sent for [...] CD34, variable CD56, variable CD117, and dim GC819-gsqck mickey; promonocyte immunophenotype (70% by flow): CD11b, [...] at worst) -Continue frequent oral care -Dilaudid GROUND LAYER for pain control -TPN for nutritional support -Leucovorin rescue after MTX doses Renal: #VIKI: with rise in sCr to 1.35 noted on 09/07/15, most likely from supratherapeutic Vancomyci n level in setting concurrent CNI. -HOLD Tacrolimus overnight and stop IV Vancomycin. -500mL NS bolus x1 on 09/07/15. Neuro/Psych: #Depression - Zoloft CERAMICS ARTIST -Zoloft 25 mg daily #Anxiety - Xanax PRN CERAMICS ARTIST -Xanax 1 mg TID PRN Infectious Disease: [...] PBSCT. Anticipate 3-4 week hospitalization. ORLY Arteaga [facility] [address] [facility] Mailcode: Kpv14 [place] [address] Mikayla Schwarz MD - 09/07/2015 10:13 AM [...] Clerical check shows no discrepancy MAGALY (direct Claier test) is negative Blood received shows no hemolysis Mikayla Dunn MD, Resident Department of Pathology and Laboratory MedicineElectronically signed by MD juan manuel Anne 09/08/2015 11:41 AM Wilian Laura, SUPERVISOR [employer]ANGING - 09/06/2015 10:38 PM PSTFormatting of this n ote might be different from the original. Daily NPP Note - Transplant Admit [facility] Attending: Lobo Rizzo MD [facility] Physician: Yari Garcia MD PCP: Pending Pcp ADDITION Date of Admission: 08/18/2015 Conditioning regimen: tBuCy Date of transplant: 08/27/2015 (two day 0s) Donor: MM URD (DPB1 permissive antigen mismatch, male, [id number]) Reason for admission: tBuCy MMURD for refractory [...] -Mucositis: grade 3-4. Continue frequent oral care, GROUND LAYER and TPN. Plan for Leucovorin resc ue after MTX doses. -CINV: improved on scheduled antiemetics. Continues Scop patch, scheduled Zofran, Marinol a nd Zyprexa. -Nutrition: took in no solid food but 4.8L of PO fluid intake was documented in the past da y. 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 Pain overall w ell controlled on GROUND LAYER. Objective: Last Vitals: BP 128/73 | Pulse [...] PMH of pericarditis who was [place] [facility] [place] (the night of his [...] L ankle. He was evaluated at [facility] ED on 06/[address] angiogram negative [...] myelomonocytic leukemia. He was referred to [facility] for further evaluation and man agement of his newly dx'd AML. Pt was admitted to [facility] on 05/26/15. Peripheral blood was sent for [...] CD34, variable CD56, variable CD117, and dim NW041-nfpbj mickey; promonocyte immunophenotype (70% by flow): CD11b, [...] at worst) -Continue frequent oral care -Dilaudid GROUND LAYER for pain control -TPN for nutritional support -Leucovorin rescue after MTX doses Neuro/Psych: #Depression - Zoloft CERAMICS ARTIST -Zoloft 25 mg daily #Anxiety - Xanax PRN CERAMICS ARTIST -Xanax 1 mg TID PRN Infectious Disease: [...] PBSCT. Anticipate 3-4 week hospitalization. 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..] in preservative free NaCl 0.9% 50 mL GROUND LAYER infusion intravenous CON TINUOUS [START ON 09/07/2015] [...] Ref Range: 0.70-1.30 mg/dL 1.08 EGFR - MONTENEGRIN Latest Ref Range: >60 mL/min >60 EGFR NON -MONTENEGRIN Latest Ref Range: >60 mL/min >60 GLUCOSE, [...] 25-50 mg 25-50 mg intravenous Q4H PRN phtckldzdeAWBWC-opogxqgzb-APMNDT (SPECIAL MOUTHWASH) suspension (compound) 10-15 mL 10 [...] in preservative free NaCl 0.9% 50 mL GROUND LAYER infusion intravenous CON TINUOUS [START ON 09/07/2015] [...] on IV tpn Hypomagnesemia replace Haily Yeager [facility] - 09/05/2015 12:48 PM PST Daily NPP Note - Transplant Admit [facility] Attending: Dr. Zach Rizzo [facility] Physician: Yari Garcia MD PCP: Pending [...] (noted 09/01): Continue mouth rinses. Remains on GROUND LAYER and TPN. Leucovor in rescue ordrered on09/03/15. -CINV: Improved. No emesis. Continues Scop patch, scheduled Zofran, Marinol and Zyprexa. -Lytes: Standard replacement protocol. No repletion required -Nutrition: Took in applesauce and liquids- 3.3 L of oral fluids. No solid foods Subjective: No new issues today, slept well overnight. Pain controlled on GROUND LAYER Objective: Last Vitals: BP 134/75 | Pulse [...] PMH of pericarditis who was in [place] [facility] [place] (the night of his [...] his L ankle. He was evaluated at [facility] ED on 06/[address] angiogram negative [...] myelomonocytic leukemia. He was referred to [facility] for further evaluation and man agement of his newly dx'd AML. Pt was admitted to [facility] on 05/26/15. Peripheral blood was sent for [...] CD34, variable CD56, variable CD117, and dim WG209-sodhx mickey; promonocyte immunophenotype (70% by flow): CD11b, [...] neg. Senna Plus, Colace, La ctulose PRN CERAMICS ARTIST -Imodium PRN #Mucositis, grade 3-4 (noted 09/01): earliest signs of healing noted 09/05 -Continue mouth rinses. -Morphine GROUND LAYER started 09/03 -TPN started 09/03 -Leucovorin rescue after Day +6 MTX Neuro/Psych: #Depression - Zoloft CERAMICS ARTIST -Zoloft 25 mg daily #Anxiety - Xanax PRN CERAMICS ARTIST -Xanax 1 mg TID PRN Infectious Disease: [...] PBSCT. Anticipate 3-4 week hospitalization. YANNI Smith [address] Mailcode: [facility] [place] [address] Lobo Goins MD - 09/04/2015 4:22 PM [...] Range: 0.70-1.30 mg/dL 0.52 (L) EGFR - MONTENEGRIN Latest Ref Range: >60 mL/min >60 EGFR NON -MONTENEGRIN Latest Ref Range: >60 mL/min >60 GLUCOSE, [...] 25-50 mg 25-50 mg intravenous Q4H PRN hoorsptgxpURNKU-bxlhkrsbo-YFRJKN (SPECIAL MOUTHWASH) suspension (compound) 10-15 mL 10 [...] in preservative free NaCl 0.9% 50 mL GROUND LAYER infusion intravenous CON TINUOUS [START ON 09/07/2015] [...] with mucositis-partially covered with tpn aily Haider [facility] - 09/04/2015 11:15 AM PST Daily NPP Note - Transplant Admit [facility] Attending: Dr. Zach Rizzo [facility] Physician: Yari Garcia MD PCP: Pending [...] (noted 09/01): Continue mouth rinses. Remains on GROUND LAYER and TPN. Leucovorin rescue ordrered on09/03/15. -CINV: Improved. No emesis. Continues Scop patch, scheduled Zofran, Marinol and Zyprexa. -Lytes: Standard replacement protocol. No repletion required -Nutrition: Took in only liquids- 3L. No solid foods Subjective: Feels he is doing better on GROUND LAYER for pain control. Feels better today with [...] his L ankle. He was evaluated at [facility] ED on 06/[address] angiogram negative [...] myelomonocytic leukemia. He was referred to [facility] for further evaluation and man agement of his newly dx'd AML. Pt was admitted to [facility] on 05/26/15. Peripheral blood was sent for [...] CD34, variable CD56, variable CD117, and dim BY900-loogl mickey; promonocyte immunophenotype (70% by flow): CD11b, [...] neg. Senna Plus, Colace, La ctulose PRN CERAMICS ARTIST -Imodium PRN #Mucositis, grade 2 (noted 09/01): worsening -Continue mouth rinses. -Morphine GROUND LAYER started 09/03 -TPN started 09/03 -Leucovorin rescue after Day +6 MTX Neuro/Psych: #Depression - Zoloft CERAMICS ARTIST -Zoloft 25 mg daily #Anxiety - Xanax PRN CERAMICS ARTIST -Xanax 1 mg TID PRN Infectious Disease: [...] PBSCT. Anticipate 3-4 week hospitalization. YANNI Smith [facility] [address] [facility] Mailcode: [facility] [place] [address] henLamin MD,PhD - 09/03/2015 4:12 PM PSTHeme [...] ppx Mucositis - leucovorin rescue - start GROUND LAYER - start TPN Please see the ESTHELA [...] chemotherapy Lamin Funes MD PhD etersonRobyn David, ORDER RUNNER - 09/03/2015 11:56 AM PST Daily NPP Note - Transplant Ad[facility] Attending: Lamin Funes MD [facility] Physician: Yari Garcia MD PCP: Pending [...] (noted 09/01): Continue mouth rinses. Started morphine GROUND LAYER today. TPN st arted with decreased PO [...] PMH of pericarditis who was in his [facility] [place] (the night of his [...] his L ankle. He was evaluated at [place] ED on 06/[address] angiogram negative [...] myelomonocytic leukemia. He was referred to [facility] for further evaluation and man agement of his newly dx'd AML. Pt was admitted to [facility] on 05/26/15. Peripheral blood was sent for [...] CD34, variable CD56, variable CD117, and dim MQ366-jazll mickey; promonocyte immunophenotype (70% by flow): CD11b, [...] neg. Senna Plus, Colace, La ctulose PRN CERAMICS ARTIST -Imodium PRN #Mucositis, grade 2 (noted 09/01): worsening -Continue mouth rinses. -Morphine GROUND LAYER started 09/03 -TPN started 09/03 -Leucovorin rescue after Day +6 MTX Renal: No acute issues Musculoskeletal: No acute issues Neuro/Psych: #Depression - Zoloft CERAMICS ARTIST -Zoloft 25 mg daily #Anxiety - Xanax PRN CERAMICS ARTIST -Xanax 1 mg TID PRN Skin: No [...] Anticipate 3-4 week hospitalization. REBECCA Pérez NP [address] [facility] Mailcode: Kpv[address] [place] [address] Lamin Espinal MD, PhD - [...] chemotherapy Lamin Funes MD PhD eRobyn stevens, ORDER RUNNER - 09/02/2015 10:51 AM PST Daily NPP Note - Transplant Admit [facility] Attending: Lamin Funes MD [facility] Physician: Yari Garcia MD PCP: Pending [...] L ankle. He was evaluated at [facility] ED on 06/[address] angiogram negative [...] myelomonocytic leukemia. He was referred to [facility] for further evaluation and man agement of his newly dx'd AML. Pt was admitted to [facility] on 05/26/15. Peripheral blood was sent for [...] CD34, variable CD56, variable CD117, and dim YF080-wflmw mickey; promonocyte immunophenotype (70% by flow): CD11b, [...] neg. Senna Plus, Colace, La ctulose PRN CERAMICS ARTIST -Imodium PRN #Risk for Mucositis - Not an active issue -Continue oral care with normal saline rinses frequently Renal: No acute issues Musculoskeletal: No acute issues Neuro/Psych: #Depression - Zoloft CERAMICS ARTIST -Zoloft 25 mg daily #Anxiety - Xanax PRN CERAMICS ARTIST -Xanax 1 mg TID PRN Skin: No [...] Anticipate 3-4 week hospitalization. REBECCA Pérez NP [address] [facility] Mailcode: Kpv[address] [place] [address] Lamin Espinal MD, PhD - [...] (HCC) Lamin Funes MD PhD Amira Dean [employer] - 08/31/2015 12:10 PM PSTFormatting of this note might be different from the shanna valdes Daily NPP Note - Transplant Admit [facility] Attending: Lamin Funes MD [facility] Physician: Yari Garcia MD PCP: Pending [...] of primary refractory AML. Treatment history: Khurram eKlly is a 24 y.o. CM with a PMH of pericarditis who was in [place] [facility] [place] (the night of his [...] his L ankle. He was evaluated at [facility] ED on 06/[address] angiogram negative [...] myelomonocytic leukemia. He was referred to [facility] for further evaluation and man agement of his newly dx'd AML. Pt was admitted to [facility] on 05/26/15. Peripheral blood was sent for [...] CD34, variable CD56, variable CD117, and dim JQ966-oqpfk mickey; promonocyte immunophenotype (70% by flow): CD11b, [...] neg. Senna Plus, Colace, La ctulose PRN CERAMICS ARTIST -Imodium PRN #Risk for Mucositis - Not an active issue -Continue oral care with normal saline rinses frequently Renal: No acute issues Musculoskeletal: No acute issues Neuro/Psych: #Depression - Zoloft CERAMICS ARTIST -Zoloft 25 mg daily #Anxiety - Xanax PRN CERAMICS ARTIST -Xanax 1 mg TID PRN Skin: No [...] PBSCT. Anticipate 3-4 week hospitalization. ORLY Bianchi [facility] [address] [facility] Mailcode: Kpv[address] [place] [address] Lamin Espinal MD,PhD - 08/30/2015 7:12 PM [...] to chemotherapy (HCC) Neutropenic fever (HCC) Lamin Fnues MD PhD rAmira cee, [employer] - 08/30/2015 10:32 AM PSTFormatting of this note might be different from the shanna valdes Daily NPP Note - Transplant Admit [facility] Attending: Lamin Funes MD [facility] Physician: Yari Garcia MD PCP: Pending [...] his L ankle. He was evaluated at [facility] ED on 06/[address] angiogram negative [...] myelomonocytic leukemia. He was referred to [facility] for further evaluation and man agement of his newly dx'd AML. Pt was admitted to [facility] on 05/26/15. Peripheral blood was sent for [...] CD34, variable CD56, variable CD117, and dim JY916-atqrf mickey; promonocyte immunophenotype (70% by flow): CD11b, [...] neg. Senna Plus, Colace, La ctulose PRN CERAMICS ARTIST -Imodium PRN #Risk for Mucositis - Not an active issue -Continue oral care with normal saline rinses frequently Renal: No acute issues Musculoskeletal: No acute issues Neuro/Psych: #Depression - Zoloft CERAMICS ARTIST -Zoloft 25 mg daily #Anxiety - Xanax PRN CERAMICS ARTIST -Xanax 1 mg TID PRN Skin: No [...] PBSCT. Anticipate 3-4 week hospitalization. ORLY Bianchi [place] [address] [facility] Mailcode: Kpv[address] [place], [place] [id number] Lamin Espinal MD,PhD - 08/29/2015 2:30 PM [...] (HCC) Lamin Funes MD PhD mira Lundy [employer] - 08/29/2015 8:14 AM PSTFormatting of this note might be different from the shanna valdes Daily NPP Note - Transplant Admit [facility] Attending: Lamin Funes MD [facility] Physician: Yari Garcia MD PCP: Pending [...] his L ankle. He was evaluated at [place] ED on 06/[address] angiogram negative [...] myelomonocytic leukemia. He was referred to [facility] for further evaluation and man agement of his newly dx'd AML. Pt was admitted to [facility] on 05/26/15. Peripheral blood was sent for [...] CD34, variable CD56, variable CD117, and dim WQ329-blicl mickey; promonocyte immunophenotype (70% by flow): CD11b, [...] neg. Senna Plus, Colace, La ctulose PRN CERAMICS ARTIST -Imodium PRN #Risk for Mucositis - Not an active issue -Continue oral care with normal saline rinses frequently Renal: No acute issues Musculoskeletal: No acute issues Neuro/Psych: #Depression - Zoloft CERAMICS ARTIST -Zoloft 25 mg daily #Anxiety - Xanax PRN CERAMICS ARTIST -Xanax 1 mg TID PRN Skin: No [...] BuCy MMURD PBSCT. Anticipate 3-4 week hospitalization. OLRY Bianchi [address] [facility] Mailcode: Kpv[address] [place] [address] Lamin Espinal MD,PhD - 08/28/2015 2:23 PM [...] and vomiting) Lamin Funes MD PhD rAmira ece [employer] - 08/28/2015 8:55 AM PSTFormatting of this note might be different from the shanna valdes Daily NPP Note - Transplant Admit [facility] Attending: Lamin Funes MD [facility] Physician: Yari Garcia MD PCP: Pending [...] PMH of pericarditis who was in his [facility] [place] (the night of his [...] his L ankle. He was evaluated at [facility] ED on 06/[address] angiogram negative [...] myelomonocytic leukemia. He was referred to [facility] for further evaluation and man agement of his newly dx'd AML. Pt was admitted to [facility] on 05/26/15. Peripheral blood was sent for [...] CD34, variable CD56, variable CD117, and dim WB178-liycj mickey; promonocyte immunophenotype (70% by flow): CD11b, [...] neg. Senna Plus, Colace, La ctulose PRN CERAMICS ARTIST -Imodium PRN #Risk for Mucositis - Not an active issue -Continue oral care with normal saline rinses frequently Renal: No acute issues Musculoskeletal: No acute issues Neuro/Psych: #Depression - Zoloft CERAMICS ARTIST -Zoloft 25 mg daily #Anxiety - Xanax PRN CERAMICS ARTIST -Xanax 1 mg TID PRN Skin: No [...] PBSCT. Anticipate 3-4 week hospitalization. ORLY Bianchi [place] [address] [facility] Mailcode: v14 [place] [address] wen Lundy FNP - 08/27/2015 12:55 PM PST Daily NPP Note - Transplant Admit [facility] Attending: Daniel Das MD [facility] Physician: Yari Garcia MD PCP: Pending [...] PMH of pericarditis who was in his [facility] [place] (the night of his [...] L ankle. He was evaluated at [facility] ED on 06/[address] angiogram negative [...] myelomonocytic leukemia. He was referred to [facility] for further evaluation and man agement of his newly dx'd AML. Pt was admitted to [facility] on 05/26/15. Peripheral blood was sent for [...] CD34, variable CD56, variable CD117, and dim CJ885-acbbt mickey; promonocyte immunophenotype (70% by flow): CD11b, [...] #Constipation - Senna Plus, Colace, Lactulose PRN CERAMICS ARTIST -Senna Plus 1-2 tabs BID PRN -Miralax, Lactulose PRN #Risk for Mucositis - Not an active issue -Continue oral care with normal saline rinses frequently Renal: No acute issues Musculoskeletal: No acute issues Neuro/Psych: #Depression - Zoloft CERAMICS ARTIST -Zoloft 25 mg daily #Anxiety - Xanax PRN CERAMICS ARTIST -Xanax 1 mg TID PRN Skin: No [...] PBSCT. Anticipate 3-4 week hospitalization. ORLY Bianchi [facility] [address] [facility] Mailcode: [facility] [place] [address] Daniel Julio MD - 08/27/2015 10:47 AM [...] Immunocompromised state (HCC) 05/29/2015 Electrolyte abnormality 05/29/2015 [facility] RESEARCH PROTOCOL PATIENT (RESPRO) 05/28/2015 Overview Note: [...] have a skin biopsy taken during the [facility] bone marrow biopsy. Acute myeloid leukemia (AML), [...] CINv, anti-emetics, stem cells, engraftment and recovery [facility] DEPARTMENT: [id number] - [facility] MPV Place of Service: - Inpatient Date of Service: 08/27/2015 Suggested CPT: 46430 - Subsequent, Detailed/High complex Daniel Julio MD [...] Immunocompromised state (HCC) 05/29/2015 Electrolyte abnormality 05/29/2015 [facility] RESEARCH PROTOCOL PATIENT (RESPRO) 05/28/2015 Overview Note: [...] have a skin biopsy taken during the [facility] bone marrow biopsy. Acute myeloid leukemia (AML), [...] stem cell infusion and plan for day. [facility] DEPARTMENT: [id number] - [facility] Place of Service: - Inpatient Date of Service: 08/26/2015 Suggested CPT: 95775 - Subsequent, Detailed/High complex Yosvany Blanc MD [...] for Hematologic Malignancies Attending: Daniel Das MD [facility] Physician: Yari Garcia MD PCP: Pending [...] his L ankle. He was evaluated at [facility] ED on 06/[address] angiogram negative [...] myelomonocytic leukemia. He was referred to [facility] for further evaluation and man agement of his newly dx'd AML. Pt was admitted to [facility] on 05/26/15. Peripheral blood was sent for [...] CD34, variable CD56, variable CD117, and dim KQ473-dekiu mickey; promonocyte immunophenotype (70% by flow): CD11b, [...] #Constipation - Senna Plus, Colace, Lactulose PRN CERAMICS ARTIST -Colace 100 mg BID -Senna Plus 1 tab daily #Risk for Mucositis - Not an active issue -Continue oral care with normal saline rinses frequently Renal: No acute issues Musculoskeletal: No acute issues Neuro/Psych: #Depression - Zoloft CERAMICS ARTIST -Zoloft 25 mg daily #Anxiety - Xanax PRN CERAMICS ARTIST -Xanax 1 mg TID PRN Skin: No [...] PBSCT. Anticipate 3-4 week hospitalization. ORLY Bianchi [address] [facility] Mailcode: [place] [address] russell, ORLY Farah - 08/25/2015 7:06 PM PST Daily NPP Note - Transplant Admit [facility] Attending: Daniel Das MD [facility] Physician: Yari Garcia MD PCP: Pending [...] PMH of pericarditis who was in his [facility] [place] (the night of his [...] L ankle. He was evaluated at [facility] ED on 06/[address] angiogram negative [...] myelomonocytic leukemia. He was referred to [facility] for further evaluation and man agement of his newly dx'd AML. Pt was admitted to [facility] on 05/26/15. Peripheral blood was sent for [...] CD34, variable CD56, variable CD117, and dim WU827-vopvl mickey; promonocyte immunophenotype (70% by flow): CD11b, [...] #Constipation - Senna Plus, Colace, Lactulose PRN CERAMICS ARTIST -Colace 100 mg BID -Senna Plus 1 tab daily #Risk for Mucositis - Not an active issue -Continue oral care with normal saline rinses frequently Renal: No acute issues Musculoskeletal: No acute issues Neuro/Psych: #Depression - Zoloft CERAMICS ARTIST -Zoloft 25 mg daily #Anxiety - Xanax PRN CERAMICS ARTIST -Xanax 1 mg TID PRN Skin: No [...] PBSCT. Anticipate 3-4 week hospitalization. ORLY Bianchi [facility] [address] [facility] Mailcode: [facility] [place] [address] Daniel Julio MD - 08/25/2015 12:02 PM [...] Immunocompromised state (HCC) 05/29/2015 Electrolyte abnormality 05/29/2015 [facility] RESEARCH PROTOCOL PATIENT (RESPRO) 05/28/2015 Overview Note: [...] [facility]. Acute myeloid leukemia (AML), [...] effects, line issues, transplant issue and plan. [facility] DEPARTMENT: [id number] - [facility] Place of Service: - Inpatient Date of Service: 08/25/2015 Suggested CPT: 53910 - Subsequent, Detailed/High complex Daniel Julio MD [...] Immunocompromised state (HCC) 05/29/2015 Electrolyte abnormality 05/29/2015 [facility] RESEARCH PROTOCOL PATIENT (RESPRO) 05/28/2015 Overview Note: [...] [facility]. Acute myeloid [...] chemo, CINV, anti-emetics, and plan. [facility] DEPARTMENT: [id number] - [facility] Place of Service: - Inpatient Date of Service: 08/24/2015 Suggested CPT: 09868 - Subsequent, Detailed/High complex russell, Amira Beverly, [employer] - 08/24/2015 2:58 PM PST Daily NPP Note - Transplant Admit [facility] Attending: Daniel Das MD [facility] Physician: Yari Garcia MD PCP: Pending [...] his L ankle. He was evaluated at [facility] ED on 06/[address] angiogram negative [...] myelomonocytic leukemia. He was referred to [facility] for further evaluation and man agement of his newly dx'd AML. Pt was admitted to [facility] on 05/26/15. Peripheral blood was sent for [...] CD34, variable CD56, variable CD117, and dim RO490-rbxpt mickey; promonocyte immunophenotype (70% by flow): CD11b, [...] #Constipation - Senna Plus, Colace, Lactulose PRN CERAMICS ARTIST -Colace 100 mg BID -Senna Plus 1 tab daily #Risk for Mucositis - Not an active issue -Continue oral care with normal saline rinses frequently Renal: No acute issues Musculoskeletal: No acute issues Neuro/Psych: #Depression - Zoloft CERAMICS ARTIST -Zoloft 25 mg daily #Anxiety - Xanax PRN CERAMICS ARTIST -Xanax 1 mg TID PRN Skin: No [...] PBSCT. Anticipate 3-4 week hospitalization. ORLY Bianchi [address] Mailcode: [place] [address] Humberto Rodas MD - 08/23/2015 8:32 AM PSTFormatting of this note might be different from the shanna lAna BMT/Leukemia Service Attending Progress Note [facility] Khurram Kelly is a 25 y.o. Male Patient Active Problem List Diagnosis Acute myeloid leukemia (AML), M4 (HCC)- primary induction failure [facility] RESEARCH PROTOCOL PATIENT (RESPRO) Immunocompromised state (HCC) [...] of lightheadness Beginning fluid hydration for CTX. 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 Continue full supports Yung Zhao MD [facility] [address] [facility] Mailcode: K[address] [place] [address] [facility] DEPARTMENT: [id number] - [facility] MP Place of Service: [id number] - Inpatient Date of Service: 08/23/15 Modifiers: None Suggested CPT: 01510 - Subsequent, Detailed/High complex Lobo Shepherd M [...] leukemia (AML), M4 (HCC)- primary induction failure [facility] RESEARCH PROTOCOL PATIENT (RESPRO) Immunocompromised state (HCC) [...] Vanco Continue full supports Yung Zhao MD [facility] 14K [address] [facility] Mailcode: Kpv14 [place] [address] Yung Rodas MD - 08/21/2015 3:03 PM PST BMT/Leukemia Service Attending Progress Note [facility] Khurram Kelly is a 25 y.o. Male Patient Active Problem List Diagnosis Acute myeloid leukemia (AML), M4 (HCC)- primary induction failure [facility] RESEARCH PROTOCOL PATIENT (RESPRO) Immunocompromised state (HCC) [...] setting Continue full supports Yung Zhao MD [facility] 14K [address] [facility] Mailcode: Kpv14 [place] [address] Lobo Goins M D - [...] Latest Range: 0.7-1.3 mg/dL 1.07 EGFR - MONTENEGRIN Latest Range: >60 mL/min >60 EGFR NON -MONTENEGRIN Latest Range: >60 mL/min >60 GLUCOSE, PLASMA [...] Latest Range: 0.10-0.90 K/cu mm 0.47 Busulfan AQG=9760-pnmpcauwjrrgci dose reduction Current Inpatient Medications Medication Dose [...] injection 50 mg 50 mg intravenous PRN zworauudbdFZGII-gidvmkmdn-UMCGHJ (SPECIAL MOUTHWASH) suspension (compound) 10-15 mL 10 [...] allopurnol to prevent gout- Lobo Rizzo MD [facility] 14K [address] [facility] Mailcode: [facility] [place] [address] Lobo Goins MD - 08/19/2015 [...] Latest Range: 0.7-1.3 mg/dL 0.88 EGFR - MONTENEGRIN Latest Range: >60 mL/min >60 EGFR NON -MONTENEGRIN Latest Range: >60 mL/min >60 GLUCOSE, PLASMA [...] CE... PRODUCT UNIT # No range found [id number] UNIT ABO No range found A UNIT RH No range found POS STATUS OF UNIT No range found Issued EXPIRATION DATE No range found [id number] BLOOD TYPE BARCODE No range found 6200 [...] injection 50 mg 50 mg intravenous PRN xpktkkiqgzAYLOG-jowkwqnsi-DTDORA (SPECIAL MOUTHWASH) suspension (compound) 10-15 mL 10 [...] allopurnol to prevent gout- Lobo Rizzo MD [place] [address]K [address] [facility] Mailcode: Kpv14 [place] [address] documented in this encounter Plan of Treatment [...] | | | | | | [place], [place] | | | | | | [address] | | | | | | [phone] | | | | | | | [...] | | POC | | PST | ([facility]) | results section. | + +--------+ + + + | CAPILLARY BLOOD | Routin | 09/06/2015 | Acute myeloid | Results for this | | GLUCOSE (NO CHG), | e | 12:13 AM | leukemia (AML), M4 | procedure are in the | | POC | | PST | ([facility]) | results section. | + [...] | | POC | | PST | ([facility]) | results section. | + +--------+ + + + | CAPILLARY BLOOD | Routin | 09/05/2015 | Acute myeloid | Results for this | | GLUCOSE (NO CHG), | e | 11:55 AM | leukemia (AML), M4 | procedure are in the | | POC | | PST | ([facility]) | results section. | + [...] | | POC | | PST | ([facility]) | results section. | + [...] | | POC | | PST | ([facility]) | results section. | + [...] | | POC | | PST | ([facility]) | results section. | + [...] | | POC | | PST | ([facility]) | results section. | + +--------+ + + + | CAPILLARY BLOOD | Routin | 09/04/2015 | Acute myeloid | Results for this | | GLUCOSE (NO CHG), | e | 5:53 AM | leukemia (AML), M4 | procedure are in the | | POC | | PST | ([facility]) | results section. | + [...] | | | PST | ([facility]) | results section. | + +--------+ + + + | CULTURE, BLOOD BACTI | Routin | 08/26/2015 | Acute myeloid | Results for this | | & YEAST | e | 4:54 PM | leukemia (AML), M4 | procedure are in the | | | | PST | ([facility]) | results section. | + +--------+ + + + | PRODUCT CD34 STEM | Routin | 08/26/2015 | Acute myeloid | Results for this | | CELLS | e | 4:53 PM | leukemia (AML), M4 | procedure are in the | | | | PST | ([facility]) | results section. | + +--------+ + + + | PRODUCT ADD'L | Routin | 08/26/2015 | Acute myeloid | Results for this | | MARKERS | e | 4:53 PM | leukemia (AML), M4 | procedure are in the | | | | PST | ([facility]) | results section. | + +--------+ + + + | URD HPCA BASIC | Routin | 08/26/2015 | Acute myeloid | Results for this | | PROCESSING | e | 4:52 PM | leukemia (AML), M4 | procedure are in the | | | | PST | ([facility]) | results section. | + +--------+ + + + | PRODUCT MANUAL DIFF | Routin | 08/26/2015 | Acute myeloid | Results for this | | | e | 4:52 PM | leukemia (AML), M4 | procedure are in the | | | | PST | ([facility]) | results section. | + +--------+ + + + | PRODUCT CELL COUNT | Routin | 08/26/2015 | Acute myeloid | Results for this | | | e | 4:52 PM | leukemia (AML), M4 | procedure are in the | | | | PST | ([facility]) | results section. | + [...] | | | PST | ([facility]) | results section. | + [...] | | | PST | ([facility]) | results section. | + [...] | | | PST | ([facility]) | results section. | + [...] BEACON | | PST | ([facility]) | | + +--------+ + [...] | | | PST | ([facility]) | results section. | + [...] | | | PST | ([facility]) | results section. | + [...] | | | PST | ([facility]) | results section. | + +--------+ + + + | BUSULFAN PK, ORAL | Routin | 08/19/2015 | Acute myeloid | Results for this | | | e | 6:00 AM | leukemia (AML), M4 | procedure are in the | | | | PST | ([facility]) | results section. | + [...] | | | PST | ([facility]) | results section. 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 | + [...] | | | PST | ([facility]) | results section. 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), M4 | | | BEACON | | PST | ([facility]) | | + +--------+ + [...] | + + + + + | [facility] | [address] | [place] [address] | | | SERVICES, SPECIAL | PARK [...] [facility] | [address] | [place] [address] | | | SERVICES, CORE | WALLY [...] | [facility] | [address] | [place] [address] | | | SERVICES, CORE | WALLY [...] | + + + + + | [facility] | [address] | [place] [address] | | | SERVICES, CORE | WALLY [...] + + | Performing | Address | City/State/[facility] | Phone Number | | Organization | | | | + + + + + | [facility] | [address] | [place] [address] | | | SPECIAL KOLE | WALLY [...] 2 fold may not reflect true | [facility] | | biological changes and must [...] | laboratory under CLIA, CAP, and the [facility]. | | + + + + + + + + | Performing | Address | City/State/Zipcode | Phone Number | | Organization | | | | + + + + + | [facility] | [address] | [place] [address] | | | DIAGNOSTIC | [address] [...] | + + + + + | [facility] | [address] | [place] [address] | | | SERVICES, CORE | PARK [...] [facility] | [address] | [place] [address] | | | SERVICES, CORE | PARK [...] | [facility] | [address] | [place] [address] | | | SERVICES, CORE | PARK [...] | + + + + + | [facility] | [address] [facility] | [place] [address] | | | SERVICES, CORE | WALLY [...] | | | LABORATORY | | | [place]ONTENEGRIN | | | SERVICES, | | | [...] | + + + + + | [facility] | [address] | [place] [address] | | | SERVICES, CORE | PARK [...] | [facility] | [address] | [place] [address] | | | SERVICES, CORE | WALLY [...] LABORATORY | [address] | [place] [address] | | | SERVICES, CORE | PARK [...] LABORATORY | [address] | [place] [address] | | | INDRA SHARIF | WALLY [...] | + + + + + | [facility] | [address] | [place] [address] | | | SERVICES, CORE | WALLY [...] [facility] | [address] | [place] [address] | | | SERVICES, INDRA | WALLY [...] LABORATORY | [address] | [place] [address] | | | SERVICES, CORE | WALLY [...] | | | LABORATORY | | | MONTENEGRIN | | | SERVICES, | | | [...] MDRD equation recommended by the | [facility] | | National Kidney Disease Education Program. [...] LABORATORY | [address] | [place] [address] | | | SERVICES, CORE | WALLY [...] + + + + | PRODUCT | [id number] | | [facility] | | | UNIT [...] + + + + | EXPIRATION | [id number] | | [facility] | | | DATE [...] + + + + | BLOOD | [id number] | | [facility] | | | PRODUCT [...] [facility] DE[facility] | [address] | [place] [address] | | | PATHOLOGY | [address] [...] | + + + + + | [facility] | [address] | [place] [address] | | | SERVICES, CORE | WALLY [...] | [facility] | [address] [facility] | [place] [address] | | | SERVICES, CORE | WALLY [...] | + + + + + | [email or web address] | [address] | [place] [address] | | | SERVICES, CORE | WALLY [...] LABORATORY | [address] | [place] [address] | | | SERVICES, CORE | WALLY [...] [facility] | [address] | [place] [address] | | | SERVICES, CORE | PARK [...] | | | LABORATORY | | | MONTENEGRIN | | | SERVICES, | | | [...] MDRD equation recommended by the | [facility] | | National Kidney Disease Education Program. [...] | [facility] | [address] [facility] | [place] [address] | | | SERVICES, CORE | WALLY [...] | + + + + + | [facility] | [address] | [place] [address] | | | SERVICES, CORE | WALLY [...] + + + + | PRODUCT | [id number] | | [facility] | | | UNIT [...] + + + + | EXPIRATION | [id number] | | [facility] | | | DATE [...] + + + + | BLOOD | [id number] | | [facility] | | | PRODUCT [...] [facility] [place] | [address] | [place] [address] | | | PATHOLOGY | [address] [...] [facility] | [address] | [place] [address] | | | SERVICES, INDRA | WALLY [...] LABORATORY | [address] | [place] [address] | | | INDRA SHARIF | WALLY [...] | + + + + + | [facility] | [address] | [place] [address] | | | SERVICES, CORE | WALLY [...] | + + + + + | [facility] | [address] [facility] | [place] [address] | | | SERVICES, SPECIAL | WALLY [...] | [facility] | [address] | [place] [address] | | | SERVICES, CORE | [address] | | | + + + + + MAGNESIUM, PLASMA (09/10/2015 12:05 AM PST) + +-------+ + + + | Component | Value | Ref Range | Performed | Pathologist | | | | | At | Signature | + +-------+ + + + | MAGNESIUM,P | 2.0 | 1.8 - 2.5 mg/dL | [facility] | | | LASMA | | | [...] | + + + + + | [facility] | [address] [facility] | [place] [address] | | | SERVICES, CORE | WALLY [...] | | | LABORATORY | | | MONTENEGRIN | | | SERVICES, | | | [...] | [facility] | [address] | [place] [address] | | | SERVICES, CORE | WALLY [...] + + + + | PRODUCT | [id number] | | [facility] | | | UNIT [...] + + + + | EXPIRATION | [id number] | | [facility] | | | DATE [...] + + + + | BLOOD | [id number] | | [facility] | | | PRODUCT [...] [facility] | [address] | [place] [address] | | | PATHOLOGY | [address] [...] | + + + + + | [facility] | [address] | [place] [address] | | | SERVICES, CORE | WALLY [...] + + + + | PRODUCT | [id number] | | [facility] | | | UNIT [...] + + + + | EXPIRATION | [id number] | | [facility] | | | DATE [...] + + + + | BLOOD | [id number] | | [facility] | | | PRODUCT [...] | [facility] DEPARTMENT | [address] | [place] [address] | | | PATHOLOGY | [address] [...] [facility] | [address] | [place] [address] | | | SERVICES, CORE | PARK [...] | [facility] | [address] | [place] [address] | | | SERVICES, CORE | PARK [...] | + + + + + | [facility] | [address] | [place] [address] | | | SERVICES, CORE | WALLY [...] [facility] | [address] | [place] [address] | | | SERVICES, CORE | PARK [...] | + + + + + | [facility] | [address] | [place] [address] | | | SERVICES, CORE | WALLY [...] LABORATORY | [address] | [place] [address] | | | INDRA SHARIF | WALLY [...] | | | LABORATORY | | | MONT[place]GRIN | | | SERVICES, | | | [...] | + + + + + | [facility] | [address] | [place] [address] | | | SERVICES, INDRA | WALLY [...] LABORATORY | [address] | [place] [address] | | | SERVICES, INDRA | WALLY [...] + + + + | PRODUCT | [id number] | | [facility] | | | UNIT [...] + + + + | EXPIRATION | [id number] | | [facility] | | | DATE [...] + + + + | BLOOD | [id number] | | [facility] | | | PRODUCT [...] DEPARTMENT OF | [address] | [place] [address] | | | PATHOLOGY | [address] [...] + + + + | PRODUCT | [id number] | | [facility] | | | UNIT [...] + + + + | EXPIRATION | [id number] | | [facility] | | | DATE [...] + + + + | BLOOD | [id number] | | [facility] | | | PRODUCT [...] DEPARTMENT OF | [address] | [place] [address] | | | PATHOLOGY | [address] [...] | [facility] | [address] | [place] [address] | | | SERVICES, | [address] [...] + + + + | PRODUCT | [id number] | | [facility] | | | UNIT [...] + + + + | EXPIRATION | [id number] | | [facility] | | | DATE [...] + + + + | BLOOD | [id number] | | [facility] | | | PRODUCT [...] | [facility] DEPARTMENT | [address] | [place] [address] | | | PATHOLOGY | [address] [...] | [facility] | [address] [facility] | [place] [address] | | | SERVICES, CORE | WALLY [...] | + + + + + | [facility] | [address] | [place] [address] | | | SERVICES, SPECIAL | PARK [...] LABORATORY | [address] | [place] [address] | | | INDRA SHARIF | WALLY [...] [facility] | [address] | [place] [address] | | | SERVICES, CORE | PARK [...] | | | LABORATORY | | | MONTENEGRIN | | | SERVICES, | | | [...] MDRD equation recommended by the | [facility] | | National Kidney Disease Education Program. [...] LABORATORY | [address] | [place] [address] | | | SERVICES, CORE | PARK [...] LABORATORY | [address] | [place] [address] | | | SERVICES, CORE | WALLY [...] | + + + + + | [facility] | [address] | [place] [address] | | | SERVICES, CORE | WALLY [...] LABORATORY | [address] | [place] [address] | | | SERVICES, | [address] [...] | [facility] | [address] | [place] [address] | | | SERVICES, | [address] [...] + + + + | PRODUCT | [id number] | | [facility] | | | UNIT [...] + + + + | EXPIRATION | [id number] | | [facility] | | | DATE [...] + + + + | BLOOD | [id number] | | [facility] | | | PRODUCT [...] | [facility] DEPARTMENT OF | [address] | [place] [address] | | | PATHOLOGY | [address] [...] + + + + | PRODUCT | [id number] | | [facility] | | | UNIT [...] + + + + | EXPIRATION | [id number] | | [facility] | | | DATE [...] + + + + | BLOOD | [id number] | | [facility] | | | PRODUCT [...] [facility] [place] | [address] | [place] [address] | | | PATHOLOGY | [address] [...] | | | | | signed / HORCAIO | | | | | | GILSON 09/07/2015 16:08 PM | | | | | | | | | | + + + + + + + + | Specimen | + + | | + + + +---------+ + + | Performing | Address | City/State/Zipcode | Phone Number | | Organization | | | | + +---------+ + + | [facility] DEPARTMENT OF | | | | | [...] | [facility] | [address] | [place] [address] | | | INDRA SHARIF | WALLY [...] | | | LABORATORY | | | M[place]GRIN | | | SERVICES, | | | [...] | + + + + + | [facility] | [address] | [place] [address] | | | SERVICES, CORE | WALLY [...] | + + + + + | [facility] | [address] [facility] | [place] [address] | | | SERVICES, SPECIAL | [address] | | | | IMM + COAG | | | | + + + + + CULTURE, BLOOD BACTI & YEAST [facility] (09/07/2015 6:22 AM PST) + + + [...] LABORATORY | [address] | [place] [address] | | | SERVICES, CORE | WALLY [...] | + + + + + | [facility] | [address] | [place] [address] | | | SERVICES, | [address] [...] + + + + | PRODUCT | [id number] | | [facility] | | | UNIT [...] + + + + | EXPIRATION | [id number] | | [facility] | | | DATE [...] + + + + | BLOOD | [id number] | | [facility] | | | PRODUCT [...] [facility] [place] | [address] | [place] [address] | | | PATHOLOGY | [address] [...] | + + + + + | [facility] | [address] | [place] [address] | | | SERVICES, CORE | PARK [...] [facility] | [address] | [place] [address] | | | SERVICES, CORE | PARK [...] LABORATORY | [address] | [place] [address] | | | SERVICES, CORE | P[address] [...] | | | LABORATORY | | | M[place]GRIN | | | SERVICES, | | | [...] | [facility] | [address] | [place] [address] | | | SERVICES, CORE | PARK [...] [facility] | [address] | [place] [address] | | | INDRA SHARIF | WALLY [...] | + + + + + | [facility] | [address] | [place] [address] | | | SERVICES, CORE | WALLY [...] LABORATORY | [address] | [place] [address] | | | SERVICES, CORE | PARK [...] | [facility] | [address] [facility] | [place] [address] | | | SERVICES, SPECIAL | PARK [...] - [facility] | [address] | [place], [place] | | | RUTHIE CARTER OF KRISTA | [facility] | [address] | | | TESTS | | | [...] [facility] | [address] | [place], [place] | | | EMMA POINT OF CARE | [address] | [address] | | | TESTS | | | [...] | + + + + + | [facility] | [address] [facility] | [place] [address] | | | SERVICES, CORE | [address]ALLY [...] Aspergillus galactomannan Antigen by EIA | [facility] | | | LABORATORY | | This [...] | + + + + + | [facility] | [address] | [place] [address] | | | SERVICES, SPECIAL | PARK [...] 2 fold may not reflect true | [facility] | | biological changes and must [...] | | characteristics determined by the [facility] | | | Molecular [...] | | Act of 1988. The [facility] [employer] [facility] | | | Diagnostic Center is a fully licensed and/or accredited clinical | | | laboratory under CLIA, CAP, and the [facility]. | | + + + + + + + + | Performing | Address | City/State/[facility] | Phone Number | | Organization | | | | + + + + + | [facility] | [address] | [place] [address] | | | DIAGNOSTIC | [address] [...] | [facility] | [address] [facility] | [place] [address] | | | SERVICES, INDRA | WALLY [...] [facility] | [address] | [place] [address] | | | SERVICES, CORE | PARK [...] | + + + + + | [facility] | [address] | [place] [address] | | | SERVICES, CORE | WALLY [...] | [facility] | [address] | [place] [address] | | | SERVICES, CORE | WALLY [...] | | | LABORATORY | | | MONTENEGRIN | | | SERVICES, | | | [...] | + + + + + | [facility] | [address] [facility] | [place] [address] | | | SERVICES, CORE | WALLY [...] [facility] | [address] | [place], [place] | | | EMMA POINT OF CARE | [facility] | [address] | | | TESTS | | | [...] - [facility] | [address] | [place], [place] | | | EMMA POINT OF CARE | [address] | [address] | | | TESTS | | | [...] + + + | [facility] | [address] | [place], [place] | | | EMMA POINT OF CARE | [address] | [address] | | | TESTS | | | [...] [facility] | [address] | [place], [place] | | | RUTHIE CARTER OF CARE | [address] | [address] | | | TESTS | | | [...] + + + + | PRODUCT | [id number] | | [facility] | | | UNIT [...] + + + + | EXPIRATION | [id number] | | [facility] | | | DATE [...] + + + + | BLOOD | [id number] | | [facility] | | | PRODUCT [...] DEPARTMENT OF | [address] | [place] [address] | | | PATHOLOGY | [address] [...] + + + + | PRODUCT | [id number] | | [facility] | | | UNIT [...] + + + + | EXPIRATION | [id number] | | [facility] | | | DATE [...] + + + + | BLOOD | [id number] | | [facility] | | | PRODUCT [...] DEPARTMENT OF | [address] | [place] [address] | | | PATHOLOGY | [address] [...] | + + + + + | [facility] | [address] | [place] [address] | | | [facility] | | | | + + + [...] LABORATORY | [address] | [place] [address] | | | SERVICES, CORE | PARK [...] | [facility] [email or web address] | [address] | [place] [address] | | | SERVICES, CORE | [address] | | | + + + + + MAGNESIUM, PLASMA (09/04/2015 11:01 PM PST) + +---------+ + + + | Component | Value | Ref Range | Performed | Pathologist | | | | | At | Signature | + +---------+ + + + | MAGNESIUM,P | 1.7 (L) | 1.8 - 2.5 mg/dL | [facility] [...] | [facility] | [address] | [place] [address] | | | SERVICES, CORE | PARK [...] | | | LABORATORY | | | [place] | | | SERVICES, | | | [...] | + + + + + | [facility] | [address] | [place] [address] | | | SERVICES, CORE | [address] [...] [place] | [address] | [place], [place] | | | [facility] POINT OF CARE | [address] | [address] | | | TESTS | | | [...] LABORATORY | [address] | [place] [address] | | | INDRA SHARIF | [address] [...] [place] | [address] | [place], [place] | | | RUTHIE CARTER [facility] | [address] | [address] | | | TESTS | | | [...] [place] | [address] | [place], [place] | | | RUTHIE CARTER [facility] | [address] | [address] | | | TESTS | | | [...] LABORATORY | [address] | [place] [address] | | | SERVICES, CORE | [address]ALLY [...] | [facility] | [address] | [place] [address] | | | SERVICES, CORE | PARK [...] | + + + + + | [facility] | [address] | [place] [address] | | | SERVICES, CORE | WALLY [...] | | | LABORATORY | | | [place] | | | SERVICES, | | | [...] | + + + + + | [facility] | [address] | [place] [address] | | | SERVICES, CORE | PARK [...] LABORATORY | [address] | [place] [address] | | | SERVICES, CORE | WALLY [...] [facility] | [address] | [place] [address] | | | SERVICES, CORE | WALLY [...] | + + + + + | [facility] | [address] | [place] [address] | | | SERVICES, CORE | WALLY [...] LABORATORY | [address] | [place] [address] | | | SERVICES, INDRA | WALLY [...] [facility] | [address] | [place] [address] | | | INDRA SHARIF | PARK [...] [facility] | [address] | [place] [address] | | | INDRA SHARIF | WALLY [...] | + + + + + | [facility] | [address] | [place] [address] | | | [place] | | | [...] LABORATORY | [address] | [place] [address] | | | SERVICES, CORE | PARK [...] [facility] | [address] | [place] [address] | | | INDRA SHARIF | WALLY [...] + + + + | PRODUCT | [id number] | | [facility] | | | UNIT [...] + + + + | EXPIRATION | [id number] | | [facility] | | | DATE [...] + + + + | BLOOD | [id number] | | [facility] | | | PRODUCT [...] [facility] | [address] | [place] [address] | | | PATHOLOGY | [address] [...] LABORATORY | [address] | [place] [address] | | | SERVICES, CORE | PARK [...] | [facility] | [address] | [place] [address] | | | SERVICES, CORE | PARK [...] | + + + + + | [facility] | [address] [facility] | [place] [address] | | | SERVICES, CORE | WALLY [...] | | | LABORATORY | | | [place] | | | SERVICES, | | | [...] | + + + + + | [facility] | [address] | [place] [address] | | | SERVICES, CORE | WALLY [...] | + + + + + | [facility] | [address] | [place] [address] | | | SERVICES, SPECIAL | WALLY [...] [facility] | [address] | [place] [address] | | | SERVICES, CORE | PARK [...] | [facility] | [address] [facility] | [place] [address] | | | SERVICES, | [address] [...] [facility] | [address] | [place] [address] | | | SERVICES, | [address] [...] + + + + | PRODUCT | [id number] | | [facility] | | | UNIT [...] + + + + | EXPIRATION | [id number] | | [facility] | | | DATE [...] + + + + | BLOOD | [id number] | | [facility] | | | PRODUCT [...] | [facility] DEPARTMENT OF | [address] | [place] [address] | | | PATHOLOGY | [address] [...] + + + + | PRODUCT | [id number] | | [facility] | | | UNIT [...] + + + + | EXPIRATION | [id number] | | [facility] | | | DATE [...] + + + + | BLOOD | [id number] | | [facility] | | | PRODUCT [...] + + + | [facility] | [address] | [place] [address] | | | PATHOLOGY | [address] [...] | [facility] | [address] | [place] [address] | | | SERVICES, CORE | PARK [...] | + + + + + | [facility] | [address] | [place] [address] | | | SERVICES, CORE | WALLY [...] [facility] | [address] | [place] [address] | | | SERVICES, CORE | PARK [...] [facility] | [address] | [place] [address] | | | SERVICES, CORE | PARK [...] | | | LABORATORY | | | [place] | | | SERVICES, | | | [...] MDRD equation recommended by the | [facility] | | National Kidney Disease Education Program. [...] LABORATORY | [address] | [place] [address] | | | KOLE, INDRA | WALLY [...] + + + + | PRODUCT | [id number] | | [facility] | | | UNIT [...] + + + + | EXPIRATION | [id number] | | [facility] | | | DATE [...] + + + + | BLOOD | [id number] | | [facility] | | | PRODUCT [...] DEPARTMENT OF | [address] | [place] [address] | | | PATHOLOGY | [address] [...] + + + + | PRODUCT | [id number] | | [facility] | | | UNIT [...] + + + + | EXPIRATION | [id number] | | [facility] | | | DATE [...] + + + + | BLOOD | [id number] | | [facility] | | | PRODUCT [...] DEPARTMENT OF | [address] | [place] [address] | | | PATHOLOGY | [address] [...] LABORATORY | [address] | [place] [address] | | | INDRA SHARIF | WALLY [...] [facility] | [address] | [place] [address] | | | SERVICES, CORE | PARK [...] | + + + + + | [facility] | [address] [facility] | [place] [address] | | | SERVICES, CORE | WALLY [...] | | | LABORATORY | | | [place] | | | SERVICES, | | | [...] | + + + + + | [facility] | [address] | [place] [address] | | | SERVICES, CORE | WALLY [...] | [facility] | [address] | [place] [address] | | | SERVICES, CORE | PARK [...] | [facility] | [address] | [place] [address] | | | SERVICES, CORE | WALLY [...] | [facility] | [address] | [place] [address] | | | SERVICES, CORE | [address] | | | + + + + + MAGNESIUM, PLASMA (08/30/2015 11:08 PM PST) + +---------+ + + + | Component | Value | Ref Range | Performed | Pathologist | | | | | At | Signature | + +---------+ + + + | MAGNESIUM,P | 1.4 (L) | 1.8 - 2.5 mg/dL | [facility] | | | CHRISSYMA | | | [...] | + + + + + | [facility] | [address] [facility] | [place] [address] | | | SERVICES, CORE | WALLY [...] | | | LABORATORY | | | [place] | | | SERVICES, | | | [...] | [facility] | [address] [facility] | [place] [address] | | | SERVICES, INDRA | PARK [...] | + + + + + | [facility] | [address] | [place] [address] | | | SERVICES, CORE | WALLY [...] LABORATORY | [address] | [place] [address] | | | SERVICES, CORE | PARK [...] | + + + + + | [facility] | [address] | [place] [address] | | | SERVICES, CORE | WALLY [...] | + +---------+ + + | [facility] DEPARTMENT OF | | | | | [...] LABORATORY | [address] | [place] [address] | | | SERVICES, CORE | [address] | | | + + + + + CULTURE, BLOOD BACTI & YEAST [facility] (08/30/2015 4:21 PM PST) + + + [...] | [facility] | [address] | [place] [address] | | | SERVICES, CORE | WALLY [...] | [facility] | [address] | [place] [address] | | | SERVICES, CORE | WALLY [...] | [facility] | [address] | [place] [address] | | | SERVICES, CORE | WALLY [...] | + + + + + | [facility] | [address] | [place] [address] | | | SERVICES, SPECIAL | PARK [...] + + + + | PRODUCT | [id number] | | [facility] | | | UNIT [...] + + + + | EXPIRATION | [id number] | | [facility] | | | DATE [...] + + + + | BLOOD | [id number] | | [facility] | | | PRODUCT [...] | [facility] DEPARTMENT | [address] | [place] [address] | | | PATHOLOGY | [address] [...] [facility] | [address] | [place] [address] | | | SERVICES, CORE | PARK [...] | + + + + + | [facility] | [address] | [place] [address] | | | SERVICES, SPECIAL | WALLY [...] 2 fold may not reflect true | [facility] | | biological changes and must [...] | laboratory under CLIA, CAP, and the [facility]. | | + + + + + + + + | Performing | Address | City/State/Zipcode | Phone Number | | Organization | | | | + + + + + | [facility] | [address] | [place] [address] | | | DIAGNOSTIC | [address] [...] [facility] | [address] | [place] [address] | | | SERVICES, CORE | PARK [...] [facility] | [address] | [place] [address] | | | SERVICES, CORE | PARK [...] | [facility] | [address] | [place] [address] | | | SERVICES, CORE | PARK [...] | + + + + + | [facility] | [address] | [place] [address] | | | SERVICES, CORE | PARK [...] | | | LABORATORY | | | [place] | | | SERVICES, | | | [...] | [facility] | [address] | [place] [address] | | | SERVICES, CORE | PARK [...] dose. | [facility] | | Thanks! [phone] | LABORATORY | | | SERVICES, CORE | + + + + + + + + | Performing | Address | City/State/Zipcode | Phone Number | | Organization | | | | + + + + + | [facility] | [address] | [place] [address] | | | SERVICES, CORE | PARK [...] | + + + + + | [facility] | [address] | [place] [address] | | | SERVICES, | [address] [...] LABORATORY | [address] | [place] [address] | | | KOLE, | [address] [...] + + + + | PRODUCT | [id number] | | [facility] | | | UNIT [...] + + + + | EXPIRATION | [id number] | | [facility] | | | DATE [...] + + + + | BLOOD | [id number] | | [facility] | | | PRODUCT [...] DEPARTMENT OF | [address] | [place] [address] | | | PATHOLOGY | [address] [...] | [facility]ATORY | [address] | [place] [address] | | | SERVICES, CORE | WALLY [...] | [facility] | [address] | [place] [address] | | | KOLE, INDRA | WALLY [...] | + + + + + | [facility] | [address] | [place] [address] | | | SERVICES, CORE | WALLY [...] | | | LABORATORY | | | [address] | | | SERVICES, | | | [...] | + + + + + | [facility] | [address] | [place] [address] | | | SERVICES, CORE | WALLY [...] | + + + + + | [facility] | [address] | [place] [address] | | | SERVICES, CORE | WALLY [...] LABORATORY | [address] | [place] [address] | | | SERVICES, CORE | PARK [...] | [facility] | [address] | [place] [address] | | | SERVICESINDRA | [address] [...] | [facility] | [address] | [place] [address] | | | SERVICES, CORE | [address] | | | + + + + + MAGNESIUM, PLASMA (08/28/2015 1:21 AM PST) + +---------+ + + + | Component | Value | Ref Range | Performed | Pathologist | | | | | At | Signature | + +---------+ + + + | MAGNESIUM,P | 1.3 (L) | 1.8 - 2.5 mg/dL | [facility] | | | LASMA | | | [...] | + + + + + | [facility] | [address] | [place] [address] | | | SERVICES, CORE | WALLY [...] | | | LABORATORY | | | [address] | | | SERVICES, | | | [...] | + + + + + | [facility] | [address] | [place] [address] | | | INDRA SHARIF | [address] | | | + + + + + ALLOGENEIC BLOOD-DERIVED PERIPHERAL STEM CELL TRANSPLANTATION (08/27/2015 6:19 PM PST) + + + | Narrative | Performed At | + + + | Daniel Das MD 08/27/2015 6:19 PM Hematopoietic Progenitor | | | Cell Infusion Record Name: Khurram Kelly MRN: | | | [id number] Indication for Procedure: Reconstitution of hematopoiesis | [...] | | Bag identification was crosschecked per [facility] policy: Yes Product | | | number [...] | 4 toxicity occurs, please call the [facility] [phone] to initiate the | | | [facility] Adverse Reaction Report process. I was present at start of | | | infusion, check on patient during infusion and after infusion. I was | | | on floor during infusion Daniel MD PhD [facility] | | | [facility] | | + + + 12 LEAD [...] + + | [facility] | [address] | [place], [place] | | | CARDIOLOGY | [address] | [address] | | + + + + + PROCEDURE NOTE (08/27/2015 1:54 PM PST) + + + | Narrative | Performed At | + + + | Julia Yee 08/27/2015 1:54 PM Cell Processing Name: | | | Khurram Navaleland Donation Identification | | | Number: [id number] Donor Source:[facility], [facility]heres[facility] Donor | | | Name: NMD Donor MRN/NMDP ID:[id number] ABO/Rh Donor:Apos | | | Recipient:A pos [...] [facility] | [address] | [place] [address] | | | SERVICES, CORE | PARK [...] LABORATORY | [address] | [place] [address] | | | SERVICES, CORE | PARK [...] | + + + + + | [facility] | [address] | [place] [address] | | | SERVICES, CORE | WALLY [...] | [facility] | [address] | [place] [address] | | | SERVICES, CORE | [address] | | | + + + + + MAGNESIUM, PLASMA (08/27/2015 4:36 AM PST) + +---------+ + + + | Component | Value | Ref Range | Performed | Pathologist | | | | | At | Signature | + +---------+ + + + | MAGNESIUM,P | 1.7 (L) | 1.8 - 2.5 mg/dL | [facility] | | | LASMA | | | [...] | + + + + + | [facility] | [address] | [place] [address] | | | SERVICES, CORE | W[address] [...] | | | LABORATORY | | | [place] | | | SERVICES, | | | [...] [facility] | [address] | [place] [address] | | | SERVICES, CORE | PARK [...] | + + + + + | [facility] | [address] | [place] [address] | | | SERVICES, CORE | WALLY [...] LABORATORY | [address] | [place] [address] | | | SERVICES, SPECIAL | PARK [...] + + + + | PRODUCT | [id number] | | [facility] | | | IDENTIFIER [...] LABORATORY | [address] | [place] [address] | | | SERVICES, SPECIAL | PARK [...] + + + + | PRODUCT | [id number] | | [facility] | | | IDENTIFIER [...] LABORATORY | [address] | [place] [address] | | | SERVICES, CORE | [address] | | | + + + + + PRODUCT CELL COUNT (08/26/2015 4:52 PM PST) + + + + + + | Component | Value | Ref Range | Performed | Pathologist | | | | | At | Signature | + + + + + + | PRODUCT | [id number] | | [facility] | | | IDENTIFIER [...] | [facility]ORY | [address] | [place] [address] | | | SERVICES, CORE | WALLY [...] [facility] | | | TYPE | [id number] | | CELL | | | | [...] HEM CELL | [address] | [place], [place] | | | PROCESSING LAB | [address] | [address] | | + + + + + [...] | + + + + + | [facility] | [address] | [place] [address] | | | SERVICES, CORE | WALLY [...] | + + + + + | [facility] | [address] | [place] [address] | | | SERVICES, SPECIAL | WALLY [...] + + + + | PRODUCT | [id number] | | [facility] | | | UNIT [...] + + + + | EXPIRATION | [id number] | | [facility] | | | DATE [...] + + + + | BLOOD | [id number] | | [facility] | | | PRODUCT [...] [facility] [place] | [address] | [place] [address] | | | PATHOLOGY | [address] [...] LABORATORY | [address] | [place] [address] | | | SERVICES, CORE | PARK [...] + + + + | PRODUCT | [id number] | | [facility] | | | UNIT [...] + + + + | EXPIRATION | [id number] | | [facility] | | | DATE [...] + + + + | BLOOD | [id number] | | [facility] | | | PRODUCT [...] DEPARTMENT OF | [address] | [place] [address] | | | PATHOLOGY | [address] [...] | + + + + + | [facility] | [address] | [place] [address] | | | SERVICES, CORE | WALLY [...] [facility] | [address] | [place] [address] | | | KOLE, INDRA | WALLY [...] [facility] | [address] | [place] [address] | | | SERVICES, CORE | PARK [...] LABORATORY | [address] | [place] [address] | | | SERVICES, CORE | PARK [...] | [facility] | [address] | [place] [address] | | | SERVICES, CORE | PARK [...] | + + + + + | [facility] | [address] [facility] | [place] [address] | | | SERVICES, CORE | WALLY [...] | | | LABORATORY | | | [place] | | | SERVICES, | | | [...] | + + + + + | [facility] | [address] | [place] [address] | | | SERVICES, CORE | WALLY [...] | + + + + + | [facility] | [address] | [place] [address] | | | SERVICES, CORE | [address] [...] + + + + | PRODUCT | [id number] | | [facility] | | | UNIT [...] + + + + | EXPIRATION | [id number] | | [facility] | | | DATE [...] + + + + | BLOOD | [id number] | | [facility] | | | PRODUCT [...] | [facility] DEPARTMENT OF | [address] | [place] [address] | | | PATHOLOGY | [address] [...] + + + + | PRODUCT | [id number] | | [facility] | | | UNIT [...] + + + + | EXPIRATION | [id number] | | [facility] | | | DATE [...] + + + + | BLOOD | [id number] | | [facility] | | | PRODUCT [...] [facility] [place] | [address] | [place] [address] | | | PATHOLOGY | [address] [...] to the 0900 dose on 08/25/15. | [facility] | | Thank you | LABORATORY | | | SERVICES, INDRA | + + + + + + + + | Performing | Address | City/State/Zipcode | Phone Number | | Organization | | | | + + + + + | [facility] | [address] | [place] [address] | | | SERVICES, INDRA | [address] [...] [facility] | [address] | [place] [address] | | | SERVICES, CORE | [address] [...] + + + + | PRODUCT | [id number] | | [facility] | | | IDENTIFIER [...] + + + + + + | IN SPECIMEN | HPC, APHERESIS | | [facility] [...] | [facility] | [address] | [place] [address] | | | SERVICES, CORE | WALLY [...] LABORATORY | [address] | [place] [address] | | | SERVICES, | [address] [...] | + + + + + | [facility] | [address] | [place] [address] | | | SERVICES, | [address] [...] | [facility]ATORY | [address] | [place] [address] | | | SERVICES, CORE | [address] [...] (H) | 50.0 - 70.0 % | [facility] | | | % | | | [...] LABORATORY | [address] | [place] [address] | | | SERVICES, CORE | [address] [...] LABORATORY | [address] | [place] [address] | | | SERVICES, CORE | WALLY [...] LABORATORY | [address] | [place] [address] | | | SERVICES, CORE | [address] [...] | + + + + + | [facility] | [address] [facility] | [place] [address] | | | SERVICES, CORE | [address] [...] | | | LABORATORY | | | [address] | | | SERVICES, | | | [...] | + + + + + | [facility] | [address] | [place] [address] | | | SERVICES, CORE | PARK [...] + | [facility] | [address] | [place] [address] | | | SERVICES, CORE | [address] | | | + + + + + DONOR ENGRAFTMENT STORAGE, BLOOD (08/25/2015) + + + + + + | Component | Value | Ref Range | Performed | Pathologist | | | | | At | Signature | + + + + + + | DONOR | A Donor Engraftment | | [facility] | | | ENGRAFTMENT | Sample Storage, | | DIAGNOSTIC | | | STORAGE, | BloodSpecimen Type: ACD | | | | | BLOOD | Whole Blood; Date of | | LABORATORIE | | | | Transplant: 08/26/15; | | S | | | | DonorName/ID: NMDP | | | | | | [id number] | | | | | | indications: [...] | | | | | | using Data[employer] Corpiagen column or | | | | | [...] in | | | | | | [facility] | | | | | | [...] | | | | determined bythe [facility] | | | | | | [facility] [...] | | | | | The [facility] | | | | | | DiagnosticsLaboratories | | | | | | is a fully licensed | | | | | | and/or accredited | | | | | | clinical laboratoryunder | | | | | | CLIA, CAP, and the | | | | | | State of [place]. | | | | | | Rendering [...] + + + | [facility] | [address] | [place] [address] | | | DIAGNOSTIC | [address] [...] LABORATORY | [address] | [place] [address] | | | SERVICES, CORE | [address] [...] + + + + | PRODUCT | [id number] | | [facility] | | | UNIT [...] + + + + | EXPIRATION | [id number] | | [facility] | | | DATE [...] + + + + | BLOOD | [id number] | | [facility] | | | PRODUCT [...] DEPARTMENT OF | [address] | [place] [address] | | | PATHOLOGY | [address] [...] | + + + + + | [facility] | [address] | [place] [address] | | | SERVICES, CORE | [address] [...] | + + + + + | [facility] | [address] | [place] [address] | | | SERVICES, CORE | [address] [...] | + + + + + | [email or web address] | [address] | [place] [address] | | | SERVICES, CORE | [address] [...] LABORATORY | [address] | [place] [address] | | | SERVICES, | [address] [...] LABORATORY | [address] | [place] [address] | | | SERVICES, | [address] [...] | + + + + + | [facility] | [address] | [place] [address] | | | SERVICES, CORE | [address] [...] | + + + + + | [facility] | [address] | [place] [address] | | | SERVICES, CORE | [address] [...] + + | [facility] | [address] | [place] [address] | | | SERVICES, CORE | [address] [...] LABORATORY | [address] | [place] [address] | | | SERVICES, CORE | [address] [...] | | | LABORATORY | | | [place] | | | SERVICES, | | | [...] MDRD equation recommended by the | [facility] | | National Kidney Disease Education Program. [...] | [facility]AT[facility] | [address] | [place] [address] | | | SERVICES, INDRA | WALLY [...] | [facility] | [address] | [place] [address] | | | SERVICES, CORE | PARK [...] [facility] | [address] | [place] [address] | | | SERVICES, CORE | PARK [...] LABORATORY | [address] | [place] [address] | | | SERVICES, CORE | PARK [...] | + + + + + | [facility] | [address] | [place] [address] | | | SERVICES, CORE | WALLY [...] | [facility] | [address] | [place] [address] | | | SERVICES, SPECIAL | PARK [...] 2 fold may not reflect true | [facility] | | biological changes and must [...] laboratory under [facility], [facility], and the [facility]. | | + + + + + + + + | Performing | Address | City/State/Zipcode | Phone Number | | Organization | | | | + + + + + | [facility] | [address] | [place] [address] | | | DIAGNOSTIC | [address] [...] | + + + + + | [facility] | [address] | [place] [address] | | | KOLE, INDRA | WALLY [...] LABORATORY | [address] | [place] [address] | | | SERVICES, CORE | PARK [...] | [facility] | [address] | [place] [address] | | | SERVICES, CORE | PARK [...] | | | LABORATORY | | | [place] | | | SERVICES, | | | [...] MDRD equation recommended by the | [facility] | | National Kidney Disease Education Program. [...] LABORATORY | [address] | [place] [address] | | | SERVICES, CORE | PARK [...] [facility] | [address] | [place] [address] | | | SERVICES, CORE | PARK [...] | + + + + + | [facility] | [address] | [place] [address] | | | SERVICES, INDRA | WALLY [...] attempt. | | | Midline lot number [id number]; there was positive blood return. | | [...] + | [facility] | [address] | [place] [address] | | | [place] | | | [...] | + + + + + | [facility] | [address] | [place] [address] | | | SERVICES, CORE | WALLY [...] LABORATORY | [address] | [place] [address] | | | SERVICES, CORE | PARK [...] | + + + + + | [facility] | [address] | [place] [address] | | | SERVICES, CORE | WALLY [...] | | | LABORATORY | | | [place] | | | SERVICES, | | | [...] | + + + + + | [facility] | [address] | [place] [place] [address] | | | SERVICES, CORE | WALLY [...] LABORATORY | [address] | [place] [address] | | | SERVICES, CORE | WALLY [...] + + + + | PRODUCT | [id number] | | [facility] | | | UNIT [...] + + + + | EXPIRATION | [id number] | | [facility] | | | DATE [...] + + + + | BLOOD | [id number] | | [facility] | | | PRODUCT [...] DEPARTMENT OF | [address] | [place] [address] | | | PATHOLOGY | [address] [...] | + + + + + | [facility] | [address] | [place] [address] | | | SERVICES, CORE | PARK [...] LABORATORY | [address] | [place] [address] | | | SERVICES, CORE | PARK [...] | + + + + + | [facility] | [address] | [place] [address] | | | SERVICES, CORE | WALLY [...] LABORATORY | [address] | [place] [address] | | | INDRA SHARIF | WALLY [...] | | | LABORATORY | | | [place] | | | SERVICES, | | | [...] | [facility] [email or web address] | [address] [facility] | [place] [address] | | | SERVICES, INDRA | WALLY [...] | + + + + + | [facility] | [address] | [place] [address] | | | SERVICES, CORE | PARK [...] [facility] | [address] | [place] [address] | | | SERVICES, CORE | PARK [...] | + + + + + | [facility] | [address] [facility] [facility] [facility] | [place] [address] | | | SERVICES, CORE | WALLY [...] [facility] | [address] | [place] [address] | | | INDRA SHARIF | WALLY [...] | | | LABORATORY | | | [address] | | | SERVICES, | | | [...] | + + + + + | [facility] | [address] [facility] [facility] [facility] | [place] [address] | | | SERVICES, INDRA | WALLY [...] Alice | [facility] | | Cancer Care Points [address] [address] [place], [place] | REFERENCE LAB | | [address] | | + + + + + + + + | Performing | Address | City/State/Zipcode | Phone Number | | Organization | | | | + + + + + | [facility] | | | | + + + + + | [facility]FER[facility] | see below | | [...] Alice | [facility] | | Cancer Care Points [facility] [address] [address] [place], [place] | REFERENCE LAB | | [address] | | + + + + + [...] Alice | [facility] | | Cancer Care Points [facility] [address] [address] [place], [place] | REFERENCE LAB | | [address] | | + + + + + [...] | + + + + + | [facility] | [address] | [place] [address] | | | SERVICES, CORE | WALLY [...] Alice | [facility] | | Cancer Care Points [address] [address] [place], [place] | REFERENCE LAB | | [address] | | + + + + + [...] Alice | [facility] | | Cancer Care Points [address] [address] [place], [place] | REFERENCE LAB | | [address] | | + + + + + + + + | Performing | Address | City/State/Zipcode | Phone Number | | Organization | | | | + + + + + | [facility] | | | | + [...] + + + + | PRODUCT | [id number] | | [facility] | | | UNIT [...] + + + + | EXPIRATION | [id number] | | [facility] | | | DATE [...] + + + + | BLOOD | [id number] | | [facility] | | | PRODUCT [...] [facility] [place] | [address] | [place] [address] | | | PATHOLOGY | [address] [...] initial timepoint for results. Test performed by: Mayr Alice | [facility] | | Cancer Care Points [address] [address] [place], [place] | REFERENCE LAB | | [address] | | + + + + + + + + | Performing | Address | City/State/Zipcode | Phone Number | | Organization | | | | + + + + + | [facility] | | | | + [...] Alice | [facility] | | Cancer Care Points [address] [address] [place], [place] | REFERENCE LAB | | [address] | | + + + + + + + + | Performing | Address | City/State/Zipcode | Phone Number | | Organization | | | | + + + + + | [facility] | | | | + [...] LABORATORY | [address] | [place] [address] | | | SERVICES, CORE | PARK [...] | + + + + + | [facility] | [address] [facility] | [place] [address] | | | SERVICES, CORE | [address] | | | + + + + + MAGNESIUM, PLASMA (08/19/2015 4:30 AM PST) + +-------+ + + + | Component | Value | Ref Range | Performed | Pathologist | | | | | At | Signature | + +-------+ + + + | MAGNESIUM,P | 2.1 | 1.8 - 2.5 mg/dL | [facility] | | | LASMA | | | [...] | [facility] LABORATORY | [address] | [place] [address] | | | SERVICES, CORE | PARK [...] | | | LABORATORY | | | [place] | | | SERVICES, | | | [...] | + + + + + | [facility] | [address] | [place] [address] | | | SERVICES, CORE | WALLY [...] LABORATORY | [address] | [place] [address] | | | INDRA SHARIF | WALLY [...] | Test performed | [facility] | | by:[facility] [address] | REFERENCE LAB | | [address], [place] [address] | | |[place] [address] | | + + + + + [...] [facility] | [address] | [place] [address] | | | SERVICES, CORE | WALLY [...] + + + + | PRODUCT | [id number] | | [facility] | | | UNIT [...] + + + + | EXPIRATION | [id number] | | [facility] | | | DATE [...] + + + + | BLOOD | [id number] | | [facility] | | | PRODUCT [...] [facility] DEPARTMENT | [address] | [place] [address] | | | PATHOLOGY | [address] [...] | + + + + + | [facility] | [address] | [place] [address] | | | SERVICES, CORE | WALLY [...] LABORATORY | [address] | [place] [address] | | | INDRA SHARIF | WALLY [...] | + + + + + | [facility] | [address] | [place] [address] | | | SERVICES, CORE | WALLY [...] LABORATORY | [address] | [place] [address] | | | SERVICES, | [address] [...] | + + + + + | [facility] | [address] | [place] [address] | | | SERVICES, | [address] [...] - | | | | | | [facility] | | + +-------+ + + + + + | Specimen | + + | Blood - Blood | + + + + + + + | Performing | Address | City/State/Zipcode | Phone Number | | Organization | | | | + + + + + | [facility] | [address] | [place] [address] | | | [facility] | | | | + + + [...] + | [facility] | [address] | [place] [address] | | | [place] | | | [...] LABORATORY | [address] | [place] [address] | | | INDRA SHARIF | WALLY [...] LABORATORY | [address] | [place] [address] | | | SERVICES, CORE | PARK [...] [facility] | [address] | [place] [address] | | | KOLE, INDRA | WALLY [...] LABORATORY | [address] | [place] [address] | | | SERVICES, CORE | PARK [...] | + + + + + | State [email or web address] | [address] | [place] [address] | | | SERVICES, CORE | WALLY [...] [facility] | [address] | [place] [address] | | | KOLE, INDRA | PARK [...] | | | LABORATORY | | | [place] | | | SERVICES, | | | [...] | [facility] [email or web address] | [address] | [place] [address] | | | SERVICES, CORE | WALLY [...] + + + + | PRODUCT | [id number] | | [facility] | | | UNIT [...] + + + + | EXPIRATION | [id number] | | [facility] | | | DATE [...] + + + + | BLOOD | [id number] | | [facility] | | | PRODUCT [...] [facility] [place] | [address] | [place] [address] | | | PATHOLOGY | [address] [...] + + + + | PRODUCT | [id number] | | [facility] | | | UNIT [...] + + + + | EXPIRATION | [id number] | | [facility] | | | DATE [...] + + + + | BLOOD | [id number] | | [facility] | | | PRODUCT [...] [facility] | [address] | [place] [address] | | | PATHOLOGY | [address] [...] | | | doses, First dose on [facility] 08/19/15 | | | | | | [...] | 15 mL | | | | justjijteiOKDIM-qpusxgqeg-JCQBFX | | 16 8:22 | | | [...] | | | 09/08/15 at 2099, Until Ulpe | | | | | | | [...] 16 4:34 | | | | | GROUND LAYER infusion intravenous, | | AM PST | [...] + + +---+---+---+ | morphine 5 mg/mL GROUND LAYER infusion | Rate/Dos | 09/04/19 | | [...] | | | | NEEDED, Starting Lupe 08/26/15 at | | | | [...] | | | | | dose on [facility] 08/19/15 at 0900, | | AM PST [...] | | | | | modification) on [facility] 09/02/15 at | | | | | [...]
--- OUTSIDE RECORDS SUMMARY | ~2019-05-17 | XMS | Encounter Summary ---
Demographics + + + | Address | [address] | | | [place] [address] | + + + | Home Phone [...] Team Providers + +------+ + | Care Windows Vmware Engineer Name | Role | Phone | + +------+ + | Zayda Hinton | PCP | | + +------+ + Encounter Details +--------+ + + + + | Date | Type | Department | Care Team | Description | +--------+ + + + + | 09/07/ | Procedure | 6A Intra Op [facility] | | | | 2017 | Pass | [facility] | | | | | | Admitting Desk | | | | | | Located on the 9th | | | | | | floor [address] | | | | | [address] | | | | | | [place], [place] | | | | | | [address] | | | +--------+ + + + [...] Rd | | | | | | [place], [place] | | | | | | [address] | | | | | | [phone] | | | | | | | | +--------+---------+ + + + documented as of this encounter Visit Diagnoses Not on filedocumented in this encounter"
--- OUTSIDE RECORDS SUMMARY | ~2019-05-17 | XMS | Encounter Summary ---
Demographics + + + | Address | [address] | | | [place] [address] | + + + | Home Phone [...] Providers + +------+ + | Care Research Computing Specialist Name | Role | Phone | [...] | | | | | remission | [address] | Gregory | | | | | | Phone: | Pavilion | | | | | Procedures | [phone] | [place], [place] | | | | | Post BMT | Fax: | [address] | | | | | Auth to | [phone] | Phone: | | | | | included | | [phone] | | | | | facility, | | Fax: | | | | | diagnostics, | | [phone] | | | | | office | [...] at | | | | | | [facility] | | | | | | [address] | | | | | | Debi Burger Mailcode: | | | | | | [facility] [place] | | | | | | [place], | | | | | | [place] [address] | | | | | | [phone] | | | +--------+ + + + [...] | | | | | | [place], [place] | | | | | | [address] | | | | | | [phone] | | | | | | | [...] [facility] | [address] | [place], [place] | | | RUTHIE CARTER OF [facility] | [address] | [address] | | | TESTS | | | [...] [place] | | | [facility] POINT OF [facility] | [address] | [address] | | | TESTS | | | [...] LABORATORY | [address] | [place] [address] | | | SERVICES, CORE | PARK [...]
--- OUTSIDE RECORDS SUMMARY | ~2019-05-17 | XMS | Encounter Summary ---
Demographics + + + | Address | [address] | | | [place] [address] | + + + | Home Phone [...] Team Providers + +------+ + | Care Ui Architect Name | Role | Phone | [...] [address] | | | | | | [place], [place] | | | | | | [address] | | | | | | [phone] | | | +--------+ + + + [...] Rd | | | | | | [place], [place] | | | | | | [address] | | | | | | [phone] | | | | | | | | +--------+---------+ + + + documented as of this encounter Visit Diagnoses Not on filedocumented in this encounter"
--- OUTSIDE RECORDS SUMMARY | ~2019-05-17 | XMS | Encounter Summary ---
Demographics + + + | Address | [address] | | | [place] [address] | + + + | Home Phone [...] Team Providers + +------+ + | Care Welder Setter Electron Beam Machine Name | Role | Phone | + +------+ + | Zayda Hinton | PCP | | + +------+ + Encounter Details +--------+ + + + + | Date | Type | Department | Care Team | Description | +--------+ + + + + | 06/15/ | Pharmacy | Specialty Pharmacy | | | | 2015 | Visit | Services [address] | | | | | | [address] | | | | | | [place], [place] | | | | | | [address] | | | | | | [phone] | | | +--------+ + + + [...] Rd | | | | | | [place], [place] | | | | | | [address] | | | | | | [phone] | | | | | | | | +--------+---------+ + + + documented as of this encounter Visit Diagnoses Not on filedocumented in this encounter"
--- OUTSIDE RECORDS SUMMARY | ~2019-05-17 | XMS | Encounter Summary ---
Demographics + + + | Address | [address] | | | [place] [address] | + + + | Home Phone [...] Team Providers + +------+ + | Care Client Manager Large Law Name | Role | Phone | + [...] [address] | | | | | [facility] | [place], [place] | | | | | [address] | [address] | | | | | [address] Mailcode: | [phone] | | | | | [facility] | | | | | | [place], | | | | | | [place] [address] | | | | | | [phone] | | | +--------+ + + + [...] Rd | | | | | | [place] | | | | | | [address] | | | | | | [phone] | | | | | | | | +--------+---------+ + + + documented as of this encounter Visit Diagnoses Not on filedocumented in this encounter"
--- OUTSIDE RECORDS SUMMARY | ~2019-05-17 | XMS | Encounter Summary ---
Demographics + + + | Address | [address] | | | [place] [address] | + + + | Home Phone [...] Team Providers + +------+ + | Care Cane Flume Watchman Name | Role | Phone | + +------+ + | Zayda Hinton | PCP | | + +------+ + Encounter Details +--------+ + + + + | Date | Type | Department | Care Team | Description | +--------+ + + + + | 01/16/ | Pharmacy | Specialty Pharmacy | | | | 2015 | Visit | Services [address] | | | | | | [address] | | | | | | [place], [place] | | | | | | [address] | | | | | | [phone] | | | +--------+ + + + [...] Rd | | | | | | [place], [place] | | | | | | [address] | | | | | | [phone] | | | | | | | | +--------+---------+ + + + documented as of this encounter Visit Diagnoses Not on filedocumented in this encounter"
--- OUTSIDE RECORDS SUMMARY | ~2019-05-17 | XMS | Encounter Summary ---
Demographics + + + | Address | [address] | | | [place] [address] | + + + | Home Phone [...] Providers + +------+ + | Care Supervisor Speech Name | Role | Phone | + [...] | | | | | achieved | [place], [place] | [facility] | | | | | remission | [address] | [facility] | | | | | | Phone: | Pavilion | | | | | Procedures | [phone] | [place], [place] | | | | | Post BMT | Fax: | [address] | | | | | Auth to | [phone] | Phone: | | | | | included | | [phone] | | | | | facility, | | Fax: | | | | | diagnostics, | | [phone] | | | | | office | [...] | Visit | Hematologic | [place] [address] | leukemia (AML), M4 | | | | Malignancies at | [address] | ([facility])- primary | | | | [facility] | [place], [place] | induction failure | | | | [address] [facility] | [address] | (Primary Dx); S/P | | | | [address] Mailcode: | [phone] | 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 He was evaluated at [place]' ED on 06/[address] angiogram negative [...] acute myelomonocytic leukemia. He was referred to [facility] for further evaluation and man agement of his newly dx'd AML. Pt was admitted to [facility] on 05/26/15. Peripheral blood was [...] CD34, variable CD56, variable CD117, and dim GA109-bzhcz mickey; promonocyte immunophenotype (70% by flow): CD11b, [...] eruption of lymphocyte recovery and early mild ngcnp-gjrotk-caub disease. On 09/13, rash involves ~15% BSA. [...] up with ophthalmology as an outpatient at [facility], schedule d for 09/15/15 at 10 am. [...] [facility] AT [address] Mailcode: [id number] [id number] documented in this encounter Plan of Treatment [...] 2019 | Visit | Malignancy | [address] [facility] | | | | | | [address] | | | | | | [place], [place] | | | | | | [address] | | | | | | [phone] | | | | | | | [...] | [address] | [place], [place] | | | RUTHIE CARTER OF KRISTA | [facility] | [address] | | | TESTS | | | [...] MACARIO | [address] | [place], [place] | | | RUTHIE CARTER OF CARE | [facility] | [address] | | | TESTS | | | [...] [facility] | [address] | [place] [address] | | | SERVICES, CORE | PARK [...] [facility] | [address] | [place] [address] | | | SERVICES, CORE | PARK [...] | + + + + + | [facility] | [address] | [place] [address] | | | SERVICES, SPECIAL | WALLY [...]
--- OUTSIDE RECORDS SUMMARY | ~2019-05-17 | XMS | Encounter Summary ---
Demographics + + + | Address | [address] | | | [place] [address] | + + + | Home Phone [...] Team Providers + +------+ + | Care Critical Power Install Technician Name | Role | Phone | [...] [address] | | | | | [place] | | [address] | | | | | DECITABINE | | Rd [place], | | | | | INJECTION, 1 | | [place] | | | | | [place] | | [address] | | | | | CHM,IV | | Phone: | | | | | INFSN,1 HR | | [phone] | | | | | [place] CHM,IV | | Fax: | | | | | INFSN,ADDL | | [phone] | | | | | HR | [...] | | | | | | [place], | | | | | | [place] [address] | | | | | | [phone] | | | +--------+ + + + [...] 07/19/2015 7:04 PM PSTReport received from Jessica Ramirez RN. Decitabine completed without complication. PICC line flushed with 10ml Normal Saline. Paul Smiths lent blood return noted. Patient verbalized chemotherapy [...] Rd | | | | | | [place], [place] | | | | | | [address] | | | | | | [phone] | | | | | | | [...] | | [place] | | PST | ([facility]) | | + +--------+ + + + | NURSING | Routin | 07/19/2015 | Acute myeloid | | | COMMUNICATION #2 - | e | 3:11 PM | leukemia (AML), M4 | | | [place] | | PST | ([facility]) | | + +--------+ + + + | NURSING | Routin | 07/19/2015 | Acute myeloid | | | COMMUNICATION #1 - | e | 3:11 PM | leukemia (AML), M4 | | | [place] | | PST | ([facility]) [...] + + + + | PRODUCT | [id number] | | [facility] | | | UNIT [...] + + + + | EXPIRATION | [id number] | | [facility] | | | DATE [...] + + + + | BLOOD | [id number] | | [facility] | | | PRODUCT [...] + + + + | [facility] | [address] | [place] [address] | | | PATHOLOGY | [address] [...] | + + + + + | [facility] | [address] | [place] [address] | | | SERVICES, CORE | PARK [...] 6.7 | 6.1 - 7.9 g/dL | [facility] - | | | TOTAL, CMP | [...] ABEL[facility] | [address] | [place], [place] | | | EMMA POINT OF CARE | [facility] | [address] | | | TESTS | | | [...] + + | [facility] | [address] | [place] [address] | | | SERVICES, CORE | PARK [...]
--- OUTSIDE RECORDS SUMMARY | ~2019-05-17 | XMS | Encounter Summary ---
Demographics + + + | Address | [address] | | | [place] [address] | + + + | Home Phone [...] Providers + +------+ + | Care Engineering Intern Name | Role | Phone | + +------+ + | Zayda Hinton | PCP | | + +------+ + Encounter Details +--------+ + + + + | Date | Type | Department | Care Team | Description | +--------+ + + + + | 09/17/ | Results/Int | Pulmonary Function | | Postinflammatory | | 2018 | erpretation | Lab at [facility] [address] | | pulmonary fibrosis | | | | [address] | | ([facility]) (Primary Dx) | | | | Mailcode: [id number] | | | | | | [address] | | | | | | [place], [place] | | | | | | [address] | | | | | | [phone] | | | +--------+ + + + [...] 2019 | Visit | Malignancy | [address] [facility] | | | | | | [address] | | | | | | [place], [place] | | | | | | [address] | | | | | | [phone] | | | | | | | | +--------+---------+ + + + documented as of this encounter Procedures + +--------+ + + + | Procedure Name | Priori | Date/Time | Associated Diagnosis | Comments | | | ty | | | | + +--------+ + + + | MN DIFFUSING | Routin | 09/19/2017 | Postinflammatory | | | CAPACITY | e | 6:09 PM | pulmonary fibrosis | | | | | PDT | ([facility]) | | + +--------+ + + + | MN PLETHYSMOGRAPHY | Routin | 09/19/2017 | Postinflammatory | | | FOR DETERM OF LUNG | e | 6:09 PM | pulmonary fibrosis | | | VOLUMES | | PDT | ([facility]) | | + +--------+ + + + | MN SPIROMETRY TEST | Routin | 09/19/2017 | [...]
--- OUTSIDE RECORDS SUMMARY | ~2019-05-17 | XMS | Encounter Summary ---
Demographics + + + | Address | [address] | | | [place] [address] | + + + | Home Phone [...] Team Providers + +------+ + | Care Burr Picker Name | Role | Phone | [...] | | | | | | | [address] | | | | | | | [address] | | | | | | | [place], | | | | | | | [place] | | | | | | | [address] | | | | | | | Phone: | | | | | | | [phone] | | | | | | | Fax: | | | | | | | [phone] | +--------+--------+ + + + + Encounter [...] | | | | Christian Barry | [place], [place] | | | | | [address] | [address] | | | | | [address] Mailcode: | [phone] | | | | | [facility] | | | | | | [place], | | | | | | [place] [address] | | | | | | [phone] | | | +--------+---------+ + + + [...] today. Check out at the front desk receptionist today and make your next appointments. You can also call the s chedulers at [phone]. If you have any questions, or if you need prescription refills, or are experiencing any sym ptoms or side effects please call our fish hatchery manager at [phone] Your physicians nurse is Christina Hernandez. You can reach her Sunday thru by page at , by phone at [phone] or via email at [email or web address] documented in this encounter Progress Notes Yari Garcia MD - 08/15/2015 10:55 AM PST [facility] 07/22/15 Diagnosis: AML - [...] his L ankle. He was evaluated at [place] ED on 06/[address] angiogram negative [...] acute myelomonocytic leukemia. He was referred to [facility] for further evaluation and man agement of his newly dx'd AML. Pt was admitted to [facility] on 05/26/15. Peripheral blood was sent [...] CD34, variable CD56, variable CD117, and dim DS817-rogrt mickey; promonocyte immunophenotype (70% by flow): CD11b, [...] Latest known visit with results is: Clinical Manufacturing Associate on 07/21/2015 Component Date Value SODIUM, POC [...] mismatches. 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 2. Immunocompromised host -acyclovir for viral prophylaxis -levaquin for bacterial prophylaxis -posaconazole for fungal prophylaxis 3. Dental issues -has some dental work that needs work (crown is off), but limited ability to have dental ma nipulations given severity of pancytopenia -encouraged pt to identify local dentist in [place] for diagnostic visit - if there are [...] provider visit s Yari Garcia MD, MS [employer] [facility] [address] [place] [phone] Display Progress Note in MyChart: No I [...] Rd | | | | | | [place], [place] | | | | | | [address] | | | | | | [phone] | | | | | | | | +--------+---------+ + + + documented as of this encounter Visit Diagnoses + + | Diagnosis | + + | Acute myeloid leukemia (AML), M4 (HCC) - Primary | + + documented in this encounter"
--- OUTSIDE RECORDS SUMMARY | ~2019-05-17 | XMS | Encounter Summary ---
Demographics + + + | Address | [address] | | | [place] [address] | + + + | Home Phone [...] Providers + +------+ + | Care Manager File Name | Role | Phone | + [...] | | | | | | [place], | | | | | | | [place] | | | | | | | [address] | | | | | | | Phone: | | | | | | | [phone] | | | | | | | Fax: | | | | | | | [phone] | +--------+--------+ + + + + Encounter [...] (HCC) (Primary Dx) | | | | [facility] | [place], [place] | | | | | [address] | [address] | | | | | Debi Burger Mailcode: | [phone] | | | | | [facility] [place] | | | | | | [place], | | | | | | [place] [address] | | | | | | [phone] | | | +--------+---------+ + + + [...] oxycodone and alprazolam have been sent to [facility] 3. Try to add more [...] his L ankle. He was evaluated at [place] ED on 06/[address] angiogram negative [...] [facility] for further evaluation and m anagement of [...] CD34, variable CD56, variable CD117, and dim AM162-yy sitive; promonocyte immunophenotype (70% by flow): CD11b, [...] the alley first opens, going to the [place] in the morning. Went golfing over the [...] CD34, variable CD56, variable CD117, and dim NW302-nvzpboua; promonocyte immunophenotype ( 70% by flow): CD11b, [...] [facility] [address] [facility] [facility] Mailcode: [place] [address] documented in this enc ounter Plan of [...] Rd | | | | | | [place], [place] | | | | | | [address] | | | | | | [phone] | | | | | | | | +--------+---------+ + + + documented as of this encounter Visit Diagnoses + + | Diagnosis | + + | Acute myeloid leukemia (AML), M4 (HCC) - Primary | + + documented in this encounter
--- OUTSIDE RECORDS SUMMARY | ~2019-05-17 | XMS | Encounter Summary ---
Demographics + + + | Address | [address] | | | [place] [address] | + + + | Home Phone [...] Team Providers + +------+ + | Care Trauma Coordinator Name | Role | Phone | [...] | | | | | | [place], | | | | | | | [place] | | | | | | | [address] | | | | | | | Phone: | | | | | | | [phone] | | | | | | | Fax: | | | | | | | [phone] | +--------+--------+ + + + + Encounter [...] | remission (HCC) | | | | [facility] | [place], [place] | (Primary Dx) | | | | [address] | [address] | | | | | Debi Burger Mailcode: | [phone] | | | | | [facility] | | | | | | [place], | | | | | | [place] [address] | | | | | | [phone] | | | +--------+---------+ + + + [...] MM URD (DPB1 permissive antigen mismatch, male, 6722-4324-2) Identifying Data: Khurram Kelly is a 25 [...] his L ankle. He was evaluated at [facility] ED on 06/[address] [...] CD34, variable CD56, variable CD117, and dim ZO728-cjbwh mickey; promonocyte immunophenotype (70% by flow): CD11b, [...] wang anxiety as his scheduled trip to [place] for the [employer] this weekend draws closer. He hasn't flown [...] repeat marrow studies scheduled for 04/19/16 2. Tgiyh-fj-Urvu Disease: Skin bx due to mild rash [...] he was seen in the ED in [place] in late 01/21. Prednisone was increased back [...] --> again encouraged pt to engage with [employer] to establish peer support or AYA support gr oup resources available at [facility] 7. 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
--- OUTSIDE RECORDS SUMMARY | ~2019-05-17 | XMS | Encounter Summary ---
Demographics + + + | Address | [address] | | | [place] [address] | + + + | Home Phone [...] Team Providers + +------+ + | Care Claims Configuration Analyst Name | Role | Phone | [...] | | myelomonocyt | [address] | [place] [address] | | | | | ic leukemia, | [address] | [facility] | | | | | not having | Wally Burger | Jabier Carrera | | | | | achieved | [place], [place] | Mailcode: | | | | | remission | [address] | [facility] | | | | | Procedures | Phone: | [place] | | | | | [place] | [phone] | Pavilion | | | | | AZACITIDINE | Fax: | [place], [place] | | | | | INJECTION, 1 | [phone] | [address] | | | | | MG [place] | | Phone: | | | | | CHM,IV | | [phone] | | | | | INFSN,1 HR | | Fax: | | | | | [place] CHM,IV | | [phone] | | | | | INFSN,ADDL | [...] | Chemotherapy | | | | [facility] [place] | | (Vidaza); Medication | | | | [place], | | (Zofrramsey ); Dressing | | | | [place] [address] | | change (Trifusion) | | | | [phone] | | | +--------+ + + + [...] pills/food, or any other concerns. Patient to [facility] tomorrow 12/30 for labs, chemotherapy, and possible [...] 2018 | Visit | Malignancy | [address] [facility] | | | | | | Jabier Carrera | | | | | | [place], [place] | | | | | | [address] | | | | | | [phone] | | | | | | | [...] | BEACON | | PDT | ([facility])- primary [...] | BEACON | | PDT | ([facility])- primary [...] 2.0 | 1.8 - 2.5 mg/dL | [facility] - | | | POC [...] MACARIO | [address] | [place], [place] | | | RUTHIE CARTER OF [facility] | [facility] | [address] | | | TESTS | | | [...] MACARIO | [address] | [place], [place] | | | LODI, POINT OF CARE | [address] | [address] | | | TESTS | | | [...] [facility] | [address] | [place] [address] | | | SERVICES, INDRA | WALLY [...] | | | | | | [facility] 12/30/15 at 0900, HIGH RISK | | [...]
--- OUTSIDE RECORDS SUMMARY | ~2019-05-17 | XMS | Encounter Summary ---
Demographics + + + | Address | [address] | | | [place] [address] | + + + | Home Phone [...] Providers + +------+ + | Care Head Concierge Name | Role | Phone | + [...] at | [facility] [address] | (HCC) (Primary Dx); | | | | Christian [facility] | [place], [place] | Rash | | | | [address] | [address] | | | | | Debi Burger Mailcode: | [phone] | | | | | [facility] | | | | | | Asha [place], | | | | | | [place] [address] | | | | | | [phone] | | | +--------+---------+ + + + [...] MM URD (DPB1 permissive antigen mismatch, male, 3298-4135-2) Identifying Data: Khurram Kelly is a 26 [...] his L ankle. He was evaluated at [place]'s ED on 06/[address] angiogram negative [...] CD34, variable CD56, variable CD117, and dim ON558-ffesx mickey; promonocyte immunophenotype (70% by flow): CD11b, [...] [facility] AT [address] Mailcode: [place] [address] documented in this enc ounter [...] Rd | | | | | | [place], [place] | | | | | | [address] | | | | | | [phone] | | | | | | | [...] SORTO | [address] | [place], [place] | | | RUTHIE CARTER OF KRISTA | [facility] | [address] | | | TESTS | | | [...] MARMADAI | | | | | | RTUHIE [...] + + + | YESSICA SORTO | [address] | [place], [place] | | | RUTHIE CARTER OF [facility] | [address] | [address] | | | TESTS | | | [...]
--- OUTSIDE RECORDS SUMMARY | ~2019-05-17 | XMS | Encounter Summary ---
Demographics + + + | Address | [address] | | | [place] [address] | + + + | Home Phone [...] Team Providers + +------+ + | Care Online Education Manager Name | Role | Phone | [...] | | | | | Encounter | [place], [place] | [address] | | | | | for | [address] | Hospital | | | | | long-term | Phone: | [place], [place] | | | | | current use | [phone] | [address] | | | | | of | Fax: | Phone: | | | | | medication | [phone] | [phone] | | | | | Procedures | | Fax: | | | | | CT | | [phone] | | | | | MAX'FACIAL | | | | | | | WWO CONTRAST | | | | | | | [place] [address] | | | | | | [...] | 2015 | Encounter | Services at [facility] | | | | | | [address] | | | | | | Debi Burger Mailcode: | | | | | | [address] [facility] | | | | | | [place], [place] | | | | | | [address] | | | | | | [phone] | | | +--------+ + + + [...] Rd | | | | | | [place], [place] | | | | | | [address] | | | | | | [phone] | | | | | | | [...]
--- OUTSIDE RECORDS SUMMARY | ~2019-05-17 | XMS | Encounter Summary ---
Demographics + + + | Address | [address] [facility] [address] | | | [place] [address] | + + + | Home Phone [...] Team Providers + +------+ + | Care Circuit Design Engineer Name | Role | Phone | + +------+ + | Zayda Hinton | PCP | | + +------+ + Encounter Details +--------+ + + + + | Date | Type | Department | Care Team | Description | +--------+ + + + + | 11/11/ | Pharmacy | Specialty Pharmacy | | | | 2015 | Visit | Services [address] | | | | | | [address] | | | | | | [place], [place] | | | | | | [address] | | | | | | [phone] | | | +--------+ + + + [...] | | | | | | [place], [place] | | | | | | [address] | | | | | | [phone] | | | | | | | | +--------+---------+ + + + documented as of this encounter Visit Diagnoses Not on filedocumented in this encounter"
--- OUTSIDE RECORDS SUMMARY | ~2019-05-17 | XMS | Encounter Summary ---
Demographics + + + | Address | [address] | | | [place] [address] [...] Team Providers + +------+ + | Care Bi Analyst Name | Role | Phone | [...] | | | | | remission | [address] | [place] | | | | | | Phone: | [facility] | | | | | Procedures | [phone] | [place], [place] | | | | | Post BMT | Fax: | [address] | | | | | Auth to | [phone] | Phone: | | | | | included | | [phone] | | | | | facility, | | Fax: | | | | | diagnostics, | | [phone] | | | | | office | [...] at | | | | | | [facility] | | | | | | [address] | | | | | | Wally Burger Mailcode: | | | | | | [facility] [place] | | | | | | [place], | | | | | | [place] [address] | | | | | | [phone] | | | +--------+ + + + [...] Rd | | | | | | [place], [place] | | | | | | [address] | | | | | | [phone] | | | | | | | [...] SORTO | [address] | [place], [place] | | | EMMA POINT OF CARE | [address] | [address] | | | TESTS | | | [...] MACARIO | [address] | [place], [place] | | | RUTHIE CARTER OF CARE | [address] | [address] | | | TESTS | | | [...] | [facility] | [address] | [place] [address] | | | SERVICES, CORE | WALLY [...] + + + | Test Performed by [facility]. Test performed by immunoassay using [place] | [facility] | | Spanish Professor i2000. . Samples for analysis of Tacrolimus [...] + + + | [facility] [employer] | [address] | [place] [address] | | | SERVICES, SPECIAL | WALLY [...] [facility] | [address] | [place] [address] | | | SERVICES, CORE | [address]ARK [...] | + + + + + | [employer] | [address] | [place] [address] | | | SERVICES, CORE | WALLY [...] [facility] | [address] | [place] [address] | | | SERVICES, CORE | WALLY [...] [facility] | [address] | [place] [address] | | | SERVICES, INDRA | [address] | | | + + + + + documented in this encounter Visit Diagnoses + + | Diagnosis | + + | 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
--- OUTSIDE RECORDS SUMMARY | ~2019-05-17 | XMS | Encounter Summary ---
Demographics + + + | Address | [address] | | | [place] [address] | + + + | Home Phone [...] Providers + +------+ + | Care Plant Associate Name | Role | Phone | [...] | | | | | remission | [address] | [facility] | | | | | Procedures | Phone: | [place] | | | | | [place] | [phone] | Pavilion | | | | | AZACITIDINE | Fax: | [place], [place] | | | | | INJECTION, 1 | [phone] | [address] | | | | | MG [place] | | Phone: | | | | | CHM,IV | | [phone] | | | | | INFSN,1 HR | | Fax: | | | | | [place] CHM,IV | | [phone] | | | | | INFSN,ADDL | [...] MPV | | | | | | [address] | | | | | | Debi Burger Mailcode: | | | | | | [facility] [place] | | | | | | [place], | | | | | | [place] [address] | | | | | | [phone] | | | +--------+ + + + [...] Carrera | | | | | | [place], [place] | | | | | | [address] | | | | | | [phone] | | | | | | | [...]
--- OUTSIDE RECORDS SUMMARY | ~2019-05-17 | XMS | Encounter Summary ---
Demographics + + + | Address | [address] | | | [place] [address] | + + + | Home Phone [...] Team Providers + +------+ + | Care Radiosonde Operator Name | Role | Phone | [...] | | | | | achieved | [facility] [place] | [facility] | | | | | remission | [address] | [place] | | | | | | Phone: | [facility]ilion | | | | | Procedures | [phone] | [place], [place] | | | | | Post BMT | Fax: | [address] | | | | | Auth to | [phone] | Phone: | | | | | included | | [phone] | | | | | facility, | | Fax: | | | | | diagnostics, | | [phone] | | | | | office | [...] | Visit | Hematologic | PA-C [address] [facility] | leukemia (AML), M4 | | | | Malignancies at | Jabier Wally Burger | ([facility])- primary | | | | [facility] [facility] | [place], [place] | induction failure | | | | [address] [facility] | [address] | (Primary Dx); S/P | | | | Wally Burger Mailcode: | [phone] | allogeneic bone | | | | [facility] [place] | | marrow transplant | | | | [facility] [place], | | ([facility]) | | | | [place] [address] | | | | | | [phone] | | | +--------+---------+ + + + [...] for the oxycodone has been sent to [facility] pharmacy in physicians pavilion. documented in this encounter Progress Notes Em Saunders PA-C - 10/21/2015 9:00 AM PDTFormatting of this note might be different f rom the original. 10/21/2015 [facility] Physician: Yari Garcia MD Local Oncologist: Yari Garcia MD PCP: Pending Pcp ADDITION Hematologic Malignancy: Primary refractory AML Conditioning regimen: tBuCy Date of transplant: 08/27/2015 (two day 0s) Donor: MM URD (DPB1 permissive antigen mismatch, male, 9992-6968-2) Hematologic History: Khurram Kelly is a 25 y.o. CM with a PMH of pericarditis who was [facility] his [facility] ntil 03/13/15 (the night of his [...] his L ankle. He was evaluated at [place]' ED on 06/[address] angiogram negative [...] CD34, variable CD56, variable CD117, and dim BC381-xgunz mickey; promonocyte immunophenotype (70% by flow): CD11b, [...] e 1 mg capsule) in the evening. Speer 0.5 mg capsules for future use. TACROLIMUS 1 MG CAPSULE Take 1 mg (one 1 mg capsule) by mouth in the morning and 1 mg (one 1 mg capsule) in the evening. Speer 0.5 mg capsules for future use. TRIAMCINOLONE [...] eruption of lymphocyte recovery and early mild onszo-npwvyy-vtxc disease. On 09/13, rash in volved ~15% [...] [facility] gut. -Sent refill for oxycodone to [facility] pharmacy. -Return to clinic 10/25/15 to see josé antonio Holder. Em Saunders PA-C [facility] [address] [facility] Mailcode: [place] [address] documented in this encounter Plan [...] Infirmary | | | | | | [facility] | | | | | | [place], [place] | | | | | | [address] | | | | | | [phone] | | | | | | | [...] SORTO | [address] | [place], [place] | | | EMMA POINT OF CARE | [address] | [address] | | | TESTS | | | [...] YESSICA SORTO | [address] | [place], [place] | | | EMMA POINT OF CARE | [address] | [address] | | | TESTS | | | [...] 2 fold may not reflect true | [facility] | | biological changes and must [...] | | | characteristics determined by the [facility] | | | Molecular Diagnostic [...] | | Act of 1988. The [facility] Molecular | | | Diagnostic Center is a fully licensed and/or accredited clinical | | | laboratory under CLIA, CAP, and the [facility]. | | + + + + + + + + | Performing | Address | City/State/Zipcode | Phone Number | | Organization | | | | + + + + + | [facility] | [address] | [place] [address] | | | DIAGNOSTIC | [address] [...] [facility] | [address] | [place] [address] | | | SERVICES, SPECIAL | PARK [...] | + + + + + | [facility] | [address] | [place] [address] | | | SERVICES, CORE | PARK [...] [facility] | [address] | [place] [address] | | | SERVICES, CORE | WALLY [...]
--- OUTSIDE RECORDS SUMMARY | ~2019-05-17 | XMS | Encounter Summary ---
Demographics + + + | Address | [address] | | | [place] [address] | + + + | Home Phone [...] Team Providers + +------+ + | Care Rural Electrification Engineer Name | Role | Phone | [...] necrosis | | 2019 | Visit | [facility] [address] | Janette Ruiz PA-C [address] | of bone of right hip | | | | Ave Mailcode: CH12A | [address] [address] | ([facility]) (Primary Dx) | | | | [facility] | [place], [place] | | | | | and Healing, | [address] | | | | | [facility] | [phone] | | | | | Floor [place], [place] | | | | | | [address] | | | | | | [phone] | | | +--------+---------+ + + + [...] AP pelvis. JANETTE CALVIN PA-C [facility] [address] Mailcode: [place] [address] documented i n this encounter [...] Rd | | | | | | [place], [place] | | | | | | [address] | | | | | | [phone] | | | | | | | | +--------+---------+ + + + documented as of this encounter Visit Diagnoses + + | Diagnosis | + + | Avascular necrosis of bone of right hip (HCC) - Primary | + + documented in this encounter
--- OUTSIDE RECORDS SUMMARY | ~2019-05-17 | XMS | Encounter Summary ---
Demographics + + + | Address | [address] | | | [place] [address] | + + + | Home Phone [...] Providers + +------+ + | Care Wheel Press Operator Name | Role | Phone [...] | | | Debi Burger Mailcode: | [place], [place] | | | | | [address] Physician's | [address] | | | | | [address] | [phone] | | | | | [place], [place] | | | | | | [address] | | | | | | [phone] | | | +--------+ + + + [...] Rd | | | | | | [place], [place] | | | | | | [address] | | | | | | [phone] | | | | | | | | +--------+---------+ + + + documented as of this encounter Visit Diagnoses Not on filedocumented in this encounter"
--- OUTSIDE RECORDS SUMMARY | ~2019-05-17 | XMS | Encounter Summary ---
Demographics + + + | Address | [address] | | | [place] [address] | + + + | Home Phone [...] Providers + +------+ + | Care Machine Technician Name | Role | Phone | [...] | 2016 | | Hematologic | PA-C [address] | Adjustment | | | | Malignancies at [facility] | [address] | (Tacrolimus) | | | | [address] | [place], [place] | | | | | Debi Tao Mailcode: | [address] | | | | | [facility] | [phone] | | | | | [place], | | | | | | [place] [address] | | | | | | [phone] | | | +--------+ + + + [...] | | | | | | [place] | | | | | | [address] | | | | | | [phone] | | | | | | | | +--------+---------+ + + + documented as of this encounter Visit Diagnoses Not on filedocumented in this encounter"
--- OUTSIDE RECORDS SUMMARY | ~2019-05-17 | XMS | Encounter Summary ---
Demographics + + + | Address | [address] | | | [place] [address] | + + + | Home Phone [...] Team Providers + +------+ + | Care Cornetist Name | Role | Phone | + [...] | | | | | | | [address] | | | | | | | Phone: | | | | | | | [phone] | | | | | | | Fax: | | | | | | | [phone] | +--------+--------+ + + + + Encounter [...] | | | | | | [facility] [place] | | | | | | [place], | | | | | | [place] [address] | | | | | | [phone] | | | +--------+ + + + [...] worsened. He was seen in ED in [place] on Sunday and advised by Dr. Garcia [...] | | | | | | [place], [place] | | | | | | [address] | | | | | | [phone] | | | | | | | [...] M4 | | | | | | ([facility])- primary | | | | | [...] M4 | | | | | | ([facility])- primary | | | | | [...] [facility] primary | | | | | | induction failure | | + +--------+ + + + | TREATMENT PARAMETERS | Routin | 02/07/2016 | Acute myeloid | | | #2 - [facility]ON | e | 1:31 PM | leukemia (AML), M4 | | | | | PDT | ([facility])- primary | | | | | | induction failure | | + +--------+ + + + | TREATMENT PARAMETERS | Routin | 02/07/2016 | Acute myeloid | | | #2 - [facility] | e | 1:31 PM | leukemia (AML), M4 | | | | | PDT | ([facility])- primary | | | | | [...] | [facility] | | PDT | transplant ([facility]) | | | | | | Acute myeloid | | | | | | leukemia (AML), M4 | | | | | | ([facility])- primary | | | | | | induction failure | | + +--------+ + + + | NURSING | Routin | 02/07/2016 | S/P allogeneic | | | COMMUNICATION #1 - | e | 1:31 PM | bone marrow | | | [facility] | | PDT | transplant ([facility]) | | | | | | Acute myeloid | | | | | | leukemia (AML), M4 | | | | | | ([facility])- primary | | | | | [...] SORTO | [address] | [place], [place] | | | EMMA POINT OF CARE | [address] | [address] | | | TESTS | | | [...] + | [facility] | [address] | [place], [place] | | | EMMA POINT OF CARE | [address] | [address] | | | TESTS | | | [...] | + + + + + | [facility] | [address] | [place] [address] | | | SERVICES, CORE | PARK [...] 2 fold may not reflect true | [facility] | | biological changes and must [...] determined by the [facility] | | | Molecular Diagnostic Center. It [...] of 1988. The [facility] Molecular | | | Diagnostic Center is a fully licensed and/or accredited clinical | | | laboratory under CLIA, CAP, and the [facility]. | | + + + + + + + + | Performing | Address | City/State/Zipcode | Phone Number | | Organization | | | | + + + + + | [facility] | [address] | [place] [address] | | | DIAGNOSTIC | [address] [...]
--- OUTSIDE RECORDS SUMMARY | ~2019-05-17 | XMS | Encounter Summary ---
Demographics + + + | Address | [address] | | | [place] [address] | + + + | Home Phone [...] Team Providers + +------+ + | Care Crib Clerk Name | Role | Phone | [...] eye, | | 2016 | Visit | [facility] | MD | right (Primary Dx); | | | | ogy at [facility] [address] | | Acute anterior | | | | [address] Mailcode: | | uveitis | | | | CH11P [facility] | | | | | | Health and [facility], | | | | | | Building | | | | | | Floor [place], [place] | | | | | | [address] | | | | | | [phone] | | | +--------+---------+ + + + [...] and Plan: Exam Date: 09/15/2015 Patient:Khurram Kelly ([id number]) Impression: 25 y/o M with PMH signifcant [...] Physician: Michael Carrera MD 09/15/2015 HPI:Khurram Kelly ([id number]), 25 y.o. year old male from [place] : Patient presents with: Follow-up visit Pain [...] scanned intake form or preadmission data in [facility] for full Family ocular and medical [...] leukemia (AML), M4 (HCC)- primary induction failure [facility] RESEARCH PROTOCOL PATIENT (RESPRO) Electrolyte abnormality ADHD [...] Dr. Solis. Makayla Carrera Resident physician at [facility] I saw and evaluated the patient. I agree with the findings and the plan of care as marco antonio leon in the resident s note. Hayder Solis MD [facility] [place]/OPHTHALMOLOGY AT [facility] [address] Mailcode: [address] [place] [address] documented in this encounter Plan [...] 2018 | Visit | Malignancy | [address] | | | | | | [address] | | | | | | [place], [place] | | | | | | [address] | | | | | | [phone] | | | | | | | [...]
--- OUTSIDE RECORDS SUMMARY | ~2019-05-17 | XMS | Encounter Summary ---
Demographics + + + | Address | [address] | | | [place] [address] | + + + | Home Phone [...] Team Providers + +------+ + | Care Shift Superintendent Caustic Cresylate Name | Role | Phone | + +------+ + | Pending Pcp Addition | PCP | Unavailable | + +------+ + Encounter Details +--------+ + + + + | Date | Type | Department | Care Team | Description | +--------+ + + + + | 10/26/ | Clinic Nurse | Center for | Aspen Cummins FNP | Other | | 2016 | | Hematologic | [address] | cytomegaloviral | | | | Malignancies at | [address] | diseases (HCC) | | | | [facility] | [place], [place] | (Primary Dx) | | | | [address] | [address] | | | | | Debi Burger Mailcode: | [phone] | | | | | [facility] | | | | | | [facility] [place], | | | | | | [place] [address] | | | | | | [phone] | | | +--------+ + + + [...] Rd | | | | | | [place], [place] | | | | | | [address] | | | | | | [phone] | | | | | | | [...]
--- OUTSIDE RECORDS SUMMARY | ~2019-05-17 | XMS | Encounter Summary ---
Demographics + + + | Address | [address] | | | [place] [address] | + + + | Home Phone [...] Providers + +------+ + | Care Custom Motorcycle Painter Name | Role | Phone | + +------+ + | Zayda Hinton | PCP | | + +------+ + Encounter Details +--------+ + + + + | Date | Type | Department | Care Team | Description | +--------+ + + + + | 05/17/ | Telephone | Hematology/Medical | Sara Henley, | | | 2019 | | Oncology at [place] | NEWSPAPER DELIVERY DRIVER [address] | | | | | for Health & Healing | [address] | | | | | [address] | [place], [place] | | | | | Mailcode: [place] | [address] | | | | | for Health and | [phone] | | | | | [facility], [address] | | | | | | [place], [place] | | | | | | [address] | | | | | | [phone] | | | +--------+ + + + [...] Rd | | | | | | [place], [place] | | | | | | [address] | | | | | | [phone] | | | | | | | | +--------+---------+ + + + documented as of this encounter Visit Diagnoses Not on filedocumented in this encounter"
--- OUTSIDE RECORDS SUMMARY | ~2019-05-17 | XMS | Encounter Summary ---
Demographics + + + | Address | [address] | | | [place] [address] | + + + | Home Phone [...] Providers + +------+ + | Care Product Development Scientist Name | Role | Phone | + [...] | | | | | achieved | [place], [place] | [facility] | | | | | remission | [address] | [place] | | | | | | Phone: | Pavilion | | | | | Procedures | [phone] | [place], [place] | | | | | Post BMT | Fax: | [address] | | | | | Auth to | [phone] | Phone: | | | | | included | | [phone] | | | | | facility, | | Fax: | | | | | diagnostics, | | [phone] | | | | | office | | | | | | | visits and | | | | | | | surgery | | | +--------+---------+ + + + + Encounter Details +--------+---------+ + + + | Date | Type | Department | Care Team | Description | +--------+---------+ + + + | 12/28/ | Office | Center for | Aspen Cummins FNP | S/P allogeneic bone | | 2017 | Visit | Hematologic | [address] | marrow transplant | | | | Malignancies at | [place] [address] | (HCC) (Primary Dx) | | | | [facility] | [place], [place] | | | | | [address] | [address] | | | | | [address] Mailcode: | [phone] | | | | | [facility] | | | | | | Pavilion [place], | | | | | | [place] [address] | | | | | | [phone] | | | +--------+---------+ + + + [...] + + + | Blood Pressure | 116/71 | 12/28/2016 8:46 AM | | | | | PDT | | + + + + + | Pulse | 70 | 12/28/2016 8:46 AM | | | | | PDT | | + + + + + | Temperature | 36.7 C (98.1 F) | 12/28/2016 8:46 AM | | | | | PDT | | + + + + + | Respiratory Rate | 20 | 12/28/2016 8:46 AM | | | | | PDT | | + + + + + | Oxygen Saturation | 98% | 12/28/2016 8:46 AM | | | | | PDT | | + + + + + | Inhaled Oxygen | - | - | | | Concentration | | | | + + + + + | Weight | 76.6 kg (168 lb 14 | 12/28/2016 8:46 AM | | | | oz) | PDT | | + + + + + | Height | - | - | | + + + + + | Body Mass Index | 21.11 | 10/18/2016 10:05 AM | | | | | PDT | | + + + + + documented in this encounter Progress Notes Aspen Cummins, [place] - 12/28/2016 9:15 AM PDT 12/28/2016 [facility] Primary [facility] MD: Yari Garcia MD Primary Oncologist: Yari Garcia MD Diagnosis: AMML, primary refractory Transplant Date: 08/27/15 Donor: MMURD (DPB1 permissive antigen mismatch, male, [id number]) Identifying Data: Khurram Kelly is a 26 [...] his L ankle. He was evaluated at [place]'s ED on 06/[address] angiogram negative [...] CD34, variable CD56, variable CD117, and dim [id number]-[id number] mickey; promonocyte immunophenotype (70% by flow): CD11b, [...] total hip arthroplasty. He is currently day +489 s/p transplant, s/p 6 cyclesof azacitidine and returns to clinic today for scheduled follow-up. Interim History: [facility] Yari Garcia MD on 12/18/16. Feeling well today. Had some nausea leading u p to his [employer]YA retreat, resolved. Appetite has been good, feels he's eating better and regaini ng weight. Started to work out more regularly and can see some early results. Energy is go od, stamina improving. No c/o recurrent rash. Recently returned from an [employer] retreat where he met other young survivors of cancer. 20 par ticipants, only 3 men. Made some good connections and remains in touch with other participan ts. He has been asked to participate in other retreats and is hopeful it will work out for h im to continue with this foundation. Anxiety well controlled with current xanax dose. States he ran out of this medication the day prior to his last visit here. By the end of the day, he felt "paranoid, nauseated". Sy mptoms resolved after restarting. Tapering down ambien. Took a dose only 4 nights out of last 7 and slept well without it. Review of Systems Constitutional: Negative for chills, [...] 0.5 mL 0.5 mL intramuscular ON CE Yari Garcia MD hepatitis B vaccine (ENGERIX-B) 20 mcg/mL injection 1 mL 1 mL intramuscular ONCE Madai Garcia MD human papillomavirus vaccine (9-valent) (GARDASIL 9) injection 0.5 mL 0.5 mL intramusc ular ONCE Yari Garcia MD meningococcal group B vaccine (BEXSERO) injection 0.5 mL 0.5 mL intramuscular ONCE Brandy Garcia MD meningococcal polysaccharide-dipheria toxoid conjugate vaccine (MENACTRA) injection 0.5 mL 0.5 mL intramuscular ONCE Yari Garcia MD poliovirus vaccine (inactivated) (IPOL) injection 0.5 mL 0.5 mL subcutaneous ONCE Lin Garcia MD tetanus-diphtheria toxoids (adult) (TENIVAC,DECAVAC,Td) injection 0.5 mL 0.5 mL intram uscular ONCE Yari Garcia MD No Known Allergies Filed Vitals: 12/28/2016 8:46 AM Weight: 76.6 kg (168 lb 14 oz) BP: 116/71 Pulse: 70 Temp: 36.7 C (98.1 F) TempSrc: Oral Resp: 20 SpO2: 98% PainSc: 0 - Zero BMI: 21.11 kg/(m^2) Physical Exam Constitutional: He is well-developed, [...] Lab Results Component Value Date WBC 7.5 12/28/2016 HB 14.2 12/28/2016 HCT 43.2 12/28/2016 PLT 130 12/28/2016 MCV 99.1 12/28/2016 RDW 49.7 12/18/2016 Lab Results Component Value Date BICARB 25 12/28/2016 TBILI 0.3 12/28/2016 CA 9.6 12/28/2016 CL 104 12/28/2016 CR 0.8 12/28/2016 GLU 94 12/28/2016 AP 91 10/09/2016 TP 6.8 12/28/2016 BUN 9 12/28/2016 ALB 3.8 12/28/2016 AST 40 12/28/2016 NA 139 12/28/2016 K 4.3 12/28/2016 ALT 81 (H) 12/28/2016 Assessment/Plan: 1. Hematology: Khurram Kelly is currentlyday +489 s/p tBuCy-conditioned unre lated donor PBSC transplant for primary refractory AML, s/p 6 cycles of azacitidine for post -transplant relapse. His most recent marrow studies completed 08/31/16 showed a normocellular marrow (30%) with trilineage hematopoiesis, marrow eosinophilia (~15%) and <2% myeloid bl asts. Karyotype 46,XY[20]. VNTR showed no detectable host cells. 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 CBC remains WNL aside from thrombocytopenia, however on review noted plt clumping therefore likely spuriously low. He continues without evidence of disease by peripheral smear. --> repeat CBC on 01/01/17 prior to vacation --> continue CBC q2 weeks and prn --> no additional marrow studies indicated providing peripheral counts remain stable 2. 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 He initially responded but flared during taper. He also developed low-level nausea and abd discomfort concerning for GvHD, emp irically treated with oral non-absorbables with resolution. - He had tapered prednisone to 10 mg po daily when he developed a rash for which he was see n in the ED in [place] in late 01/21. Prednisone was increased back [...] GvHD of the rectum. - TODAY: asymptomatic without s/s active GvHD. Continue MMF ER, tacrolimus and prednisone 20 mg every other day alt with 10 mg every other day -->no change in IST at this time --> continue to f/u with ophthalmology per their recommendations --> reviewed sun precautions 3. Infectious Disease: Afebrile without localizing s/s infection. He continues prophylact ic acyclovir and bactrim. Completed a 3-week course of fluconazole 400 mg po daily on 11/12/16 for findings of esophageal candidiasis His most recent immune reconstitution panel [facility] 08/31/16 showed normal total T cells with relative decrease in CD4+ margarita cells, normal total NK cells, normal total B cells with relative decrease in non-switched memory B cells a nd minimal immune activation. CD4 count 420. Continues post-transplant vaccines -->continue prophylactic antimicrobials --> additional vaccines today including: Gardasil, IPV, HepB, HiB, Td, and menigococcal con jugate x 2 --> next vaccines due 04/24 4. Fluid, [...] doing very well post-surgery. --> continue to /ith Lobo Jeffers MD per his recommendsations 6. Psychosocial: Hx anxiety, well controlled with current xanax dosing. 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 Traveling to [facility] 01/02-01/17/17 w nathanael plans to move back to [place] on 01/20/17. -->continue to attend AYA support group as able --> continue xanax 1 mg po TID; if pt decides he wants to taper off, recommended very slow taper by decreasing to a total of five 0.5 mg tabs/day for several weeks, then four, etc. 7. Follow up -->repeat labs at [facility] on 01/01/17 --> RTC to f/u with Yari Garcia MD on , 01/18/17, sooner prn [facility] [address] Mailcode: [place] [phone] documented in this enc ounter Plan of [...] Rd | | | | | | [place], [place] | | | | | | [address] | | | | | | [phone] | | | | | | | | +--------+---------+ + + + documented as of this encounter Visit Diagnoses + + | Diagnosis | + + | 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HCC) - Primary Bone marrow replaced by | | transplant | + + documented in this encounter
--- OUTSIDE RECORDS SUMMARY | ~2019-05-17 | XMS | Encounter Summary ---
Demographics + + + | Address | [address] | | | [place] [address] | + + + | Home Phone [...] Team Providers + +------+ + | Care University Archivist Name | Role | Phone | + +------+ + | Zayda Hinton | PCP | | + +------+ + Encounter Details +--------+ + + + + | Date | Type | Department | Care Team | Description | +--------+ + + + + | 12/16/ | Pharmacy | Specialty Pharmacy | | | | 2015 | Visit | Services [address] | | | | | | [address] | | | | | | [place], [place] | | | | | | [address] | | | | | | [phone] | | | +--------+ + + + [...] [place] | | | | | | [address] | | | | | | [phone] | | | | | | | | +--------+---------+ + + + documented as of this encounter Visit Diagnoses Not on filedocumented in this encounter"
--- OUTSIDE RECORDS SUMMARY | ~2019-05-17 | XMS | Encounter Summary ---
Demographics + + + | Address | [address] | | | [place] [address] | + + + | Home Phone [...] Team Providers + +------+ + | Care Solid Glass Rod Dowel Machine Operator Name | Role | Phone | + +------+ + | Zayda Hinton | PCP | | + +------+ + Encounter Details +--------+ + + + + | Date | Type | Department | Care Team | Description | +--------+ + + + + | 09/11/ | Pharmacy | Specialty Pharmacy | | | | 2015 | Visit | Services [address] | | | | | | [address] | | | | | | [place], [place] | | | | | | [address] | | | | | | [phone] | | | +--------+ + + + [...] Rd | | | | | | [place], [place] | | | | | | [address] | | | | | | [phone] | | | | | | | | +--------+---------+ + + + documented as of this encounter Visit Diagnoses Not on filedocumented in this encounter"
--- OUTSIDE RECORDS SUMMARY | ~2019-05-17 | XMS | Encounter Summary ---
Demographics + + + | Address | [address] | | | [place] [address] | + + + | Home Phone [...] Team Providers + +------+ + | Care Global Chief Creative Officer Name | Role | Phone | [...] | | | | | | | [address] | | | | | | | [address] | | | | | | | [place], | | | | | | | [place] | | | | | | | [address] | | | | | | | Phone: | | | | | | | [phone] | | | | | | | Fax: | | | | | | | [phone] | +--------+--------+ + + + + Encounter [...] with stem cell | | | | [address] | [place], [place] | transplant (HCC) | | | | [address] | [address] | (Primary Dx); Acute | | | | [address] Mailcode: | [phone] | myeloid leukemia | | | | [id number] | | (AML), M4 (HCC)- | | | | [facility] [place], | | primary induction | | | | [place] [address] | | failure | | | | [phone] | | | +--------+---------+ + + + [...] MM URD (DPB1 permissive antigen mismatch, male, [id number]) Identifying Data: Khurram Kelly is a 25 [...] his L ankle. He was evaluated at [place]'s ED on 06/[address] angiogram negative [...] leukemia. He was referred to [facility] for further evaluation and man agement of his newly dx'd AML. Pt was admitted to [facility] on 05/26/15. Peripheral blood was sent [...] CD34, variable CD56, variable CD117, and dim [id number] mickey; promonocyte immunophenotype (70% by flow): CD11b, [...] ing to different fishing areas in the [facility]. Has noted increased emotional lability during chemotherapy [...] c2 of azacitidine [scheduled for 11/22/15] 2. 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 [...] response/day 90 marrow Yari Garcia MD, MS Front Office Developerdelivery director [facility] [address] [place] [address] documented in this enc ounter Plan of [...] Rd | | | | | | [place], [place] | | | | | | [address] | | | | | | [phone] | | | | | | | [...]
--- OUTSIDE RECORDS SUMMARY | ~2019-05-17 | XMS | Encounter Summary ---
Demographics + + + | Address | [address] | | | [place] [address] | + + + | Home Phone [...] Providers + +------+ + | Care Drilling Manager Name | Role | Phone | [...] | | | [address] | [place], [place] | | | | | [address] Mailcode: | [address] | | | | | [facility] | [phone] | | | | | [place], | | | | | | [place] [address] | | | | | | [phone] | | | +--------+ + + + [...] [place] | | | | | | [address] | | | | | | [phone] | | | | | | | | +--------+---------+ + + + documented as of this encounter Visit Diagnoses Not on filedocumented in this encounter"
--- OUTSIDE RECORDS SUMMARY | ~2019-05-17 | XMS | Encounter Summary ---
Demographics + + + | Address | [address] | | | [place] [address] | + + + | Home Phone [...] Providers + +------+ + | Care Music Adapter Name | Role | Phone | + [...] | | | | | achieved | [place], [place] | [facility] | | | | | remission | [address] | [place] | | | | | | Phone: | Pavilion | | | | | Procedures | [phone] | [place], [place] | | | | | Post BMT | Fax: | [address] | | | | | Auth to | [phone] | Phone: | | | | | included | | [phone] | | | | | facility, | | Fax: | | | | | diagnostics, | | [phone] | | | | | office | [...] at | | | | | | [facility] [facility] | | | | | | [address] | | | | | | [address] Mailcode: | | | | | | [facility] | | | | | | [place], | | | | | | [place] [address] | | | | | | [phone] | | | +--------+ + + + [...] gauge butterfly needle. By Vladislav Son MA Material Damage Adjuster. Labs drawn and sent. Tolerated procedure well. [...] Rd | | | | | | [place], [place] | | | | | | [address] | | | | | | [phone] | | | | | | | [...] | | | | PST | transplant ([facility]) | results section. | + +--------+ + + + | MAGNESIUM, PLASMA | Urgent | 05/24/2017 | S/P allogeneic | Results for this | | | | 10:54 AM | bone marrow | procedure are in the | | | | PST | transplant ([facility]) | results [...] MACARIO | [address] | [place], [place] | | | RUTHIE CARTER OF KRISTA | [facility] | [address] | | | TESTS | | | [...] SORTO | [address] | [place], [place] | | | RUTHIE CARTER OF [address]STA | [address] | [address] | | | TESTS | | | [...] YESSICA LOZA | [address] | [place] [address] | | | SERVICES, CORE | [address] | | | + + + + + documented in this encounter Visit Diagnoses + + | Diagnosis | + + | 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
--- OUTSIDE RECORDS SUMMARY | ~2019-05-17 | XMS | Encounter Summary ---
Demographics + + + | Address | [address] | | | [place] [address] | + + + | Home Phone [...] Team Providers + +------+ + | Care Etcher Hand Name | Role | Phone | [...] | | | | | | [facility] | | | | | | [place] [address] | | | | | | [phone] | | | +--------+ + + + [...] [place] | | | | | | [address] | | | | | | [phone] | | | | | | | [...] | | PST | transplant ([facility]) | results section. | + +--------+ + + + | CMV PCR | Routin | 05/15/2016 | S/P allogeneic | Results for this | | QUANTITATION, PLASMA | e | 9:25 AM | bone marrow | procedure are in the | | | | PST | transplant ([facility]) | results section. | + +--------+ + + + | LIVER SET | Urgent | 05/15/2016 | S/P allogeneic | Results for this | | (AST,ALT,BILI | | 9:25 AM | bone marrow | procedure are in the | | TOTAL,BILI | | PST | transplant ([facility]) | results section. | | DIRECT,ALK | [...] SORTO | [address] | [place], [place] | | | RUTHIE CARTER OF CARE | [facility] | [address] | | | TESTS | | | [...] YESSICA SORTO | [address] | [place], [place] | | | [facility] POINT OF CARE | [address] | [address] | | | TESTS | | | [...] [facility] | [address] | [place] [address] | | | SERVICES, CORE | [address] [...] clinical | | | laboratory under [facility], [facility], and the [facility]. | | + + + + + + + + | Performing | Address | City/State/Zipcode | Phone Number | | Organization | | | | + + + + + | [facility] | [address] | [place] [address] | | | DIAGNOSTIC | [address] [...]
--- OUTSIDE RECORDS SUMMARY | ~2019-05-17 | XMS | Encounter Summary ---
Demographics + + + | Address | [address] | | | [place] [address] | + + + | Home Phone [...] Providers + +------+ + | Care Regional Recruiter Name | Role | Phone | [...] | | | | | | | [address] | | | | | | | [address] | | | | | | | [place], | | | | | | | [place] | | | | | | | [address] | | | | | | | Phone: | | | | | | | [phone] | | | | | | | Fax: | | | | | | | [phone] | +--------+--------+ + + + + Encounter [...] | | | | Christian Barry | [place], [place] | | | | | [address] | [address] | | | | | Debi Burger Mailcode: | [phone] | | | | | [facility] Christian | | | | | | [place], | | | | | | [place] [address] | | | | | | [phone] | | | +--------+---------+ + + + [...] of your scheduled admission please come to [facility] and go directly to the admitti ng desk on the 9th floor [facility] and they will check you in and then send you to our t reatment floor (either the 13th or 14th floor of the [facility]) documented in this encounter Progress Notes Yari [...] his L ankle. He was evaluated at [facility] ED on 06/[address] angiogram negative [...] CD34, variable CD56, variable CD117, and dim [id number]-[id number] mickey; promonocyte immunophenotype (70% by flow): CD11b, [...] PICC line: No swelling/erythema or tenderness Clinical Bandoleer Straightener Stamper on 08/13/2015 Component Date Value WBC POC [...] AST, CMP POC 08/13/2015 23 BILIRUBIN TOTAL, [facility] POC 08/13/2015 0.6 ALBUMIN, [facility] POC 08/13/2015 3.8 PROTEIN TOTAL, [facility] POC 08/13/2015 7.0 LD TOTAL, PLASMA 08/13/2015 122 LD CMNT 08/13/2015 No Hemo ABO GROUP 08/13/2015 A RH TYPE, BLOOD 08/13/2015 Positive ANTIBODY SCREEN 08/13/2015 Negative PRODUCT DESCRIPTION 08/13/2015 PLATELETS PHERESIS, LEUKOCYTE REDUCED, IRRADIATED PRODUCT UNIT # 08/13/2015 [id number] UNIT ABO 08/13/2015 O UNIT RH 08/13/2015 POS STATUS OF UNIT 08/13/2015 Presumed Transfused EXPIRATION DATE 08/13/[id number] BLOOD TYPE BARCODE 08/13/2015 5100 BLOOD PRODUCT CODE 08/13/2015 [id number] PRODUCT DESCRIPTION 08/13/2015 -1 RED BLOOD CELLS ADENINE-SALINE ADDED LEUKOCYT PRODUCT UNIT # 08/13/2015 [id number] UNIT ABO 08/13/2015 A UNIT RH 08/13/2015 POS STATUS OF UNIT 08/13/2015 Presumed Transfused EXPIRATION DATE 08/13/[id number] BLOOD TYPE BARCODE 08/13/2015 6200 BLOOD PRODUCT CODE 08/13/2015 [id number] CO-MORBIDITY INDEX Is there a history of [...] Depression/anxiety requiring psychiatric consult or treatment in [place] [facility] 4 weeks 1 1 Hepatic - [...] HLA-matched stem cell donor, approval by the [facility] BMT patient/donor selection committee, availability of a full-time caregiver and residence within 30 minutes of [facility] through at [facility] day +100 post transplant, and compliance with the immunosuppression and supportive care medication regimen prescribed by providers at [facility]. 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%, intermediate designer OS was NOT discussed in specific detail with the patient (appx30%) as he knows that the chances of intermediate survival were slim and he did not [...] receive platelets prior Yari Garcia MD, MS Manager Assurancelast repairer [facility] [address] [place] [address] I spent 60 minutes in direct contact [...] Rd | | | | | | [place], [place] | | | | | | [address] | | | | | | [phone] | | | | | | | | +--------+---------+ + + + documented as of this encounter Visit Diagnoses + + | Diagnosis | + + | Acute myeloid leukemia (AML), M4 (HCC) - Primary | + + documented in this encounter"
--- OUTSIDE RECORDS SUMMARY | ~2019-05-17 | XMS | Encounter Summary ---
Demographics + + + | Address | [address] | | | [place] [address] | + + + | Home Phone [...] Providers + +------+ + | Care Acid Concentrator Name | Role | Phone | + +------+ + | Zayda Hinton | PCP | | + +------+ + Encounter Details +--------+ + + + + | Date | Type | Department | Care Team | Description | +--------+ + + + + | 08/22/ | Wildlife Conservationist | Center for | Yari Garcia MD | S/P allogeneic bone | | 2018 | | Hematologic | [address] | marrow transplant | | | | Malignancies at | [address] | (HCC) (Primary Dx) | | | | [facility] | [place], [place] | | | | | [address] | [address] | | | | | W[address] Burger Mailcode: | [phone] | | | | | [address] | | | | | | [place], | | | | | | [place] [address] | | | | | | [phone] | | | +--------+ + + + [...] Wally | | | | | | [place], [place] | | | | | | [address] | | | | | | [phone] | | | | | | | [...] [facility] | [address] | [place] [address] | | | SERVICES, CORE | [address] | | | + + + + + documented in this encounter Visit Diagnoses + + | Diagnosis | + + | 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
--- OUTSIDE RECORDS SUMMARY | ~2019-05-17 | XMS | Encounter Summary ---
Demographics + + + | Address | [address] | | | [place] [address] | + + + | Home Phone [...] Providers + +------+ + | Care Lens Blank Gauger Name | Role | Phone | [...] | | | | | Malignancies at [facility] | [address] | | | | | [address] | Rd [place], [place] | | | | | [address] Mailcode: | [address] | | | | | [facility] [address] | [phone] | | | | | [place], | | | | | | [place] [address] | | | | | | [phone] | | | +--------+--------+ + + + [...] Rd | | | | | | [facility] [place] [place] | | | | | | [address] | | | | | | [phone] | | | | | | | | +--------+---------+ + + + documented as of this encounter Visit Diagnoses Not on filedocumented in this encounter"
--- OUTSIDE RECORDS SUMMARY | ~2019-05-17 | XMS | Encounter Summary ---
Demographics + + + | Address | [address] | | | [place] [address] | + + + | Home Phone [...] Team Providers + +------+ + | Care Log Scaler Name | Role | Phone | + +------+ + | Zayda Hinton | PCP | | + +------+ + Encounter Details +--------+ + + + + | Date | Type | Department | Care Team | Description | +--------+ + + + + | 10/20/ | Pharmacy | Specialty Pharmacy | | | | 2015 | Visit | Services [address] | | | | | | [address] | | | | | | [place], [place] | | | | | | [address] | | | | | | [phone] | | | +--------+ + + + [...] Rd | | | | | | [place], [place] | | | | | | [address] | | | | | | [phone] | | | | | | | | +--------+---------+ + + + documented as of this encounter Visit Diagnoses Not on filedocumented in this encounter"
--- OUTSIDE RECORDS SUMMARY | ~2019-05-17 | XMS | Encounter Summary ---
Demographics + + + | Address | [address] | | | [place] [address] [...] Team Providers + +------+ + | Care Requirements Engineer Name | Role | Phone | [...] | 2018 | | Hematologic | [address] | | | | | Malignancies at | Jabier [facility] | | | | | [address] | [place], [place] | | | | | [address] | [address] | | | | | [facility] Mailcode: | [phone] | | | | | [facility] | | | | | | [place], | | | | | | [place] [address] | | | | | | [phone] | | | +--------+--------+ + + + [...] Rd | | | | | | [place] | | | | | | [address] | | | | | | [phone] | | | | | | | | +--------+---------+ + + + documented as of this encounter Visit Diagnoses Not on filedocumented in this encounter"
--- OUTSIDE RECORDS SUMMARY | ~2019-05-17 | XMS | Encounter Summary ---
Demographics + + + | Address | [address] | | | [place] [address] | + + + | Home Phone [...] Team Providers + +------+ + | Care Race Engine Builder Name | Role | Phone | [...] MD | | | | | femur ([facility]) | [address] | [address] | | | | | Procedures | [facility] | [facility] | | | | | CONSULT TO | Rd | [place], | | | | | ORTHOPEDICS | [place], [place] | [place] | | | | | AND | [address] | [address] | | | | | REHABILITATI | Phone: | Phone: | | | | | ON | [phone] | [phone] | | | | | | Fax: | Fax: | | | | | | [phone] | [phone] | +--------+--------+ + + + + Reason [...] | | | | Malignancies at | 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 He was evaluated at [place] ED on 06/[address] angiogram negative [...] leukemia. He was referred to [facility] for further evaluation and man agement of his newly dx'd AML. Pt was admitted to [facility] on 05/26/15. Peripheral blood was sent [...] CD34, variable CD56, variable CD117, and dim CQ697-lstgc mickey; promonocyte immunophenotype (70% by flow): CD11b, [...] Mora here in town, then travelled to [place] for New Years. Their son had a [...] one year anniversary, sooner p rn 2. Mcquv-bz-Tope Disease: Skin bx due to mild rash [...] he was seen in the ED in [place] in late 01/21. Prednisone was increased back [...] ORLY Yanes [facility] [place] [address] [facility] Mailcode: [place] [address] documented in this enc ounter [...] Rd | | | | | | [place], [place] | | | | | | [address] | | | | | | [phone] | | | | | | | [...] | | | | | | SANDRA OGMEZ MDAuthor: | | | | | | [...]
--- OUTSIDE RECORDS SUMMARY | ~2019-05-17 | XMS | Encounter Summary ---
Demographics + + + | Address | [address] | | | [place] [address] | + + + | Home Phone [...] Team Providers + +------+ + | Care Clerk Travel Reservations Name | Role | Phone | + [...] | | | | | achieved | [facility] [place] | [facility] | | | | | remission | [address] | [place] | | | | | | Phone: | Pavilion | | | | | Procedures | [phone] | [place], [place] | | | | | Post BMT | Fax: | [address] | | | | | Auth to | [phone] | Phone: | | | | | included | | [phone] | | | | | facility, | | Fax: | | | | | diagnostics, | | [phone] | | | | | office | [...] | Visit | Hematologic | PA-C [address] [facility] | leukemia (AML), M4 | | | | Malignancies at | [address] | ([facility])- primary | | | | [facility] | [place], [place] | induction failure | | | | [address] [facility] | [address] | (Primary Dx); S/P | | | | [address] Mailcode: | [phone] | allogeneic bone | | | | [facility] | | marrow transplant | | | | Pavilion [place], | | ([facility]) | | | | [place] [address] | | | | | | [phone] | | | +--------+---------+ + + + [...] MM URD (DPB1 permissive antigen mismatch, male, 2745-4583-2) Hematologic History: Khurram Kelly is a 25 [...] his L ankle. He was evaluated at [place]' ED on 06/[address] angiogram negative [...] CD34, variable CD56, variable CD117, and dim OA906-mzebi mickey; promonocyte immunophenotype (70% by flow): CD11b, [...] eruption of lymphocyte recovery and early mild hhfqc-sshbet-gulx disease. On 09/13, rash in volved ~15% [...] Saunders PA-C [facility] [place] [facility] [address] Mailcode: [place] [address] documented in this encounter Plan [...] 2018 | Visit | Malignancy | [address] [facility] | | | | | | [address] | | | | | | [place], [place] | | | | | | [address] | | | | | | [phone] | | | | | | | [...] MACARIO | [address] | [place], [place] | | | RUTHIE CARTER OF KRISTA | [address] | [address] | | | TESTS | | | [...] + | [facility] - AIRPORT - | [address] | [place] [address] | | | [place] | | | [...] | + + + + + | [facility] | [address] | [place] [address] | | | SERVICES, CORE | [address] [...] [facility] | [address] | [place] [address] | | | SERVICES, CORE | PARK [...] | [facility] | [address] | [place] [address] | | | SERVICES, SPECIAL | PARK [...] 2 fold may not reflect true | [facility] | | biological changes and [...] laboratory under CLIA, CAP, and the [facility]. | | + + + + + + + + | Performing | Address | City/State/Zipcode | Phone Number | | Organization | | | | + + + + + | [facility] | [address] | [place] [address] | | | DIAGNOSTIC | [address] [...] [facility] | [address] | [place] [address] | | | KOLE, SPECIAL | WALLY [...] | 137 | 134 - 143 | [facility] - | | | | | mmol/L [...] SORTO | [address] | [place], [place] | | | RUTHIE CARTER OF KRISTA | [facility] | [address] | | | TESTS | | | [...]
--- OUTSIDE RECORDS SUMMARY | ~2019-05-17 | XMS | Encounter Summary ---
Demographics + + + | Address | [address] | | | [place] [address] | + + + | Home Phone [...] | | allogeneic | [address] | [address] | | | | | bone marrow | [address] | [place] | | | | | transplant | [address] | Mailcode: | | | | | ([facility]) | [place], [place] | [facility] | | | | | Procedures | [address] | for Health | | | | | CONSULT TO | Phone: | and Healing, | | | | | OPHTHALMOLOG | [phone] | Building 1, | | | | | Y | Fax: | 11th Floor | | | | | | [phone] | [place], [place] | | | | | | | [address] | | | | | | | Phone: | | | | | | | [phone] | | | | | | | Fax: | | | | | | | [phone] | +--------+--------+ + + + + Encounter Details +--------+ + + + + | Date | Type | Department | Care Team | Description | +--------+ + + + + | 10/19/ | Support Engineer | Center for | Yari Garcia MD | S/P allogeneic bone | | 2017 | | Hematologic | [address] | marrow transplant | | | | Malignancies at | [address] | (HCC) (Primary Dx) | | | | Christian Barry | [place], [place] | | | | | [address] | [address] | | | | | [address] Burger Mailcode: | [phone] | | | | | [facility] [place] | | | | | | Pavilion [place], | | | | | | [place] [address] | | | | | | [phone] | | | +--------+ + + + [...] [place] | | | | | | [address] | | | | | | [phone] | | | | | | | | +--------+---------+ + + + documented as of this encounter Visit Diagnoses + + | Diagnosis | + + | 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
--- OUTSIDE RECORDS SUMMARY | ~2019-05-17 | XMS | Encounter Summary ---
Demographics + + + | Address | [address] | | | [place] [address] | + + + | Home Phone [...] Team Providers + +------+ + | Care Iron Miner Blasting Name | Role | Phone | + +------+ + | Zayda Hinton | PCP | | + +------+ + Encounter Details +--------+ + + + + | Date | Type | Department | Care Team | Description | +--------+ + + + + | 07/23/ | Pharmacy | Specialty Pharmacy | | | | 2015 | Visit | Services [address] | | | | | | [address] | | | | | | [place], [place] | | | | | | [address] | | | | | | [phone] | | | +--------+ + + + [...] [place] | | | | | | [address] | | | | | | [phone] | | | | | | | | +--------+---------+ + + + documented as of this encounter Visit Diagnoses Not on filedocumented in this encounter"
--- OUTSIDE RECORDS SUMMARY | ~2019-05-17 | XMS | Encounter Summary ---
Demographics + + + | Address | [address] | | | [place] [address] | + + + | Home Phone [...] Team Providers + +------+ + | Care Mothercraft Nurse Name | Role | Phone | [...] 2015 | | Medical at [facility] | [address] | | | | | Floor [address] | | | | | [place] Mailcode: CH16D | [place] [address] | | | | | [facility] | [phone] | | | | | and [place], | | | | | | [facility] | | | | | | Floor [place], [place] | | | | | | [address] | | | | | | [phone] | | | +--------+ + + + [...] Rd | | | | | | [place], [place] | | | | | | [address] | | | | | | [phone] | | | | | | | [...] [facility] | Mailcode CH5D, [address] | [place] [address] | | | DERMATOPATHOLOGY | [address] | | | + + + + + documented in this encounter Visit Diagnoses + + | Diagnosis | + + | Rash and nonspecific skin eruption - Primary Rash and other nonspecific skin eruption | + + documented in this encounter
--- OUTSIDE RECORDS SUMMARY | ~2019-05-17 | XMS | Encounter Summary ---
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 ; | | | | Mail Code: 8PM | [phone] | Pre-op evaluation | | | | [facility] | | | | | | and Healing, | | | | | | Building 2 | | | | | | [place], [place] | | | | | | [address] | | | | | | [phone] | | | +--------+---------+ + + + [...] cleaning Please be sure to follow the [facility] instructions regarding proper skin preparation before [...] - [facility], ninth floor [facility] Surgery Check in Time: The Preoperative Medicine [...] it is after office hours, call the [facility] docking saw operator at [phone] and ask them to page him or [...] RIGHT TOTAL HIP ARTHROPLASTY [facility] HISTORY OF PRESENT ILLNESS: Khurram Kelly is [...] on any immunosuppression. Followed agustín campos by [facility] malignancy. No evidence of disease. On [...] Yes Comment: snorted cocaine in past, ecstasy, oddkhgcxe-nczyvs-ifw eaten PHYSICAL EXAM: Last Vitals: BP 121/78 [...] but otherwise normal. [facility] and "media" tab. Findings pertinent to [...] Perioperative risk assessment: Khurram Kelly is a 28 y.o. male with diagn [...] The maxx ent is currently scheduled at [facility] and meets inclusion criteria for that venue. Medication management recommendations: The patient was advised to continue all usual med ications except as noted in Patient Instructions (After Visit Summary given to pt) Pre-procedure antibiotic recommendation: Per standard protocol. 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 Followed closely by [facility] heme malignancy. No evidence of disease. On [...] to this patient's care. Tonya Nation MD [facility] AT [address] [address] I spent time (45 minutes, [...] | | | | | | [place], [place] | | | | | | [address] | | | | | | [phone] | | | | | | | | +--------+---------+ + + + + + +--------+ + + | Name | Type | Priori | Associated Diagnoses | Order Schedule | | | | ty | | | + + +--------+ + + | COMMUNICATION TO [facility] | Procedures | Routin | Preop [...] + +--------+ + + + | KS COLLECTION VENOUS | Routin | 12/09/2018 | [...] DEPT OF | [address] | [place], [place] | | | CARDIOLOGY | [address] | [address] | | + + + + + [...] [facility] | [address] | [place] [address] | | | SERVICES, | [address] [...] + + + + | [facility] Let | [address] | [place] [address] | | | SERVICES, | [address] [...] [facility] | [address] | [place] [address] | | | SERVICES, CORE | [address] [...] | + + + + + | [facility]PORT - | [address] | [place] [address] | | | [place] | | | [...]
--- OUTSIDE RECORDS SUMMARY | ~2019-05-17 | XMS | Encounter Summary ---
Demographics + + + | Address | [address] | | | [place] [address] | + + + | Home Phone [...] Providers + +------+ + | Care Manager Administration Name | Role | Phone | + +------+ + | Zayda Hinton | PCP | | + +------+ + Encounter Details +--------+ + + + + | Date | Type | Department | Care Team | Description | +--------+ + + + + | 08/17/ | Pharmacy | Specialty Pharmacy | | | | 2016 | Visit | Services [address] | | | | | | [address] | | | | | | [place], [place] | | | | | | [address] | | | | | | [phone] | | | +--------+ + + + [...] | | | | | | [place], [place] | | | | | | [address] | | | | | | [phone] | | | | | | | | +--------+---------+ + + + documented as of this encounter Visit Diagnoses Not on filedocumented in this encounter"
--- OUTSIDE RECORDS SUMMARY | ~2019-05-17 | XMS | Encounter Summary ---
Demographics + + + | Address | [address] | | | [place] [address] | + + + | Home Phone [...] Providers + +------+ + | Care Commercial Counsel Name | Role | Phone | + [...] Rd | | | | | | [place], [place] | | | | | | [address] | | | | | | [phone] | | | | | | | | +--------+---------+ + + + documented as of this encounter Visit Diagnoses Not on filedocumented in this encounter"
--- OUTSIDE RECORDS SUMMARY | ~2019-05-17 | XMS | Encounter Summary ---
Demographics + + + | Address | [address] | | | [place] [address] | + + + | Home Phone [...] Team Providers + +------+ + | Care Rad Technologist Name | Role | Phone | [...] | | | | ic leukemia, | [facility] | [facility] | | | | | not having | [address] | [address] | | | | | achieved | [facility], [place] | Rd Mailcode: | | | | | remission | [address] | [id number] | | | | | Procedures | Phone: | [place] | | | | | [place] | [phone] | Pavilion | | | | | AZACITIDINE | Fax: | [place], [place] | | | | | INJECTION, 1 | [phone] | [address] | | | | | [place] | | Phone: | | | | | CHM,IV | | [phone] | | | | | INFSN,1 HR | | Fax: | | | | | [place] CHM,IV | | [phone] | | | | | INFSN,ADDL | [...] | | | | | | [place] [address] | | | | | | [phone] | | | +--------+ + + + [...] MM URD (DPB1 permissive antigen mismatch, male, 4508-4695-2) Assessment Pain: none Fever or chills: none [...] Rd | | | | | | [place], [place] | | | | | | [address] | | | | | | [phone] | | | | | | | [...] | | | PDT | ([facility])- primary | [...] | | | | | ([facility])- primary [...] | | | PDT | ([facility])- primary | [...] | | | | | ([facility])- primary [...] | | | | | ([facility])- primary [...] | | | | | ([facility])- primary [...] | | | | | ([facility])- primary [...] + + + | YESSICA SORTO | [address] | [place], [place] | | | RUTHIE CATRER OF CARE | [address] | [address] | | | TESTS | | | [...] + + + | YESSICA SORTO | [address] | [place], [place] | | | [facility] POINT OF CARE | [address] | [address] | | | TESTS | | | [...] [facility] | [address] | [place] [address] | | | SERVICES, INDRA | [address] [...] | + + + + + | [facility] - | [address] | [place] [address] | | | [place] | | | [...]
--- OUTSIDE RECORDS SUMMARY | ~2019-05-17 | XMS | Encounter Summary ---
Demographics + + + | Address | [address] | | | [place] [address] | + + + | Home Phone [...] Team Providers + +------+ + | Care Chemical Operator Name | Role | Phone | [...] | | | Debi Burger Mailcode: | [place], [place] | | | | | [address] [facility] | [address] | | | | | [address] | [phone] | | | | | [place], [place] | | | | | | [address] | | | | | | [phone] | | | +--------+ + + + [...] | | | | | | [place], [place] | | | | | | [address] | | | | | | [phone] | | | | | | | | +--------+---------+ + + + documented as of this encounter Visit Diagnoses Not on filedocumented in this encounter"
--- OUTSIDE RECORDS SUMMARY | ~2019-05-17 | XMS | Encounter Summary ---
Demographics + + + | Address | [address] | | | [place] [address] | + + + | Home Phone [...] Team Providers + +------+ + | Care Yarn Skeins Examiner Name | Role | Phone | [...] | both hips | Rd | Rd [place], | | | | | ([facility]) | [place], [place] | [place] | | | | | Procedures | [address] | [address] | | | | | REQUEST TO | Phone: | Phone: | | | | | SURGERY | [phone] | [phone] | | | | | DEVELOPMENT CONSULTANT | Fax: | Fax: | | | | | [place] TOTAL HIP | [phone] | [phone] | | | | | | | [...] | | | | | ORTHOPEDICS | [place], [place] | [place] | | | | | AND | | | | | | | REHABILITATI | Phone: | Phone: | | | | | ON | [phone] | [phone] | | | | | | Fax: | Fax: | | | | | | [phone] | [phone] | +--------+--------+ + + + + Encounter Details +--------+---------+ + + + | Date | Type | Department | Care Team | Description | +--------+---------+ + + + | 08/11/ | Office | Orthopaedics at | Lobo Jeffers, | Avascular necrosis | | 2017 | Visit | [facility] [address] | [address] | of bones of both | | | | Ave Mailcode: CH12A | [address] | hips (HCC) (Primary | | | | [facility] | [place], [place] | Dx) | | | | and Healing, | | | | | | Building | [phone] | | | | | Floor [facility] [place] | | | | | | [address] | | | | | | [phone] | | | +--------+---------+ + + + [...] | | | | | | [place], [place] | | | | | | [address] | | | | | | [phone] | | | | | | | | +--------+---------+ + + + documented as of this encounter Visit Diagnoses + + | Diagnosis | + + | 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) - Primary Aseptic necrosis of head and | | neck of femur | + + documented in this encounter
--- OUTSIDE RECORDS SUMMARY | ~2019-05-17 | XMS | Encounter Summary ---
Demographics + + + | Address | [address] | | | [place] [address] | + + + | Home Phone [...] Team Providers + +------+ + | Care Curtain Fitter Name | Role | Phone | [...] 2015 | erpretation | Lab at [facility] [address] | | long-term (current) | | | | [address] | | use of medications | | | | Mailcode: [id number] | | (Primary Dx) | | | | Christian Barry | | | | | | [place], [place] | | | | | | [address] | | | | | | [phone] | | | +--------+ + + + [...] Rd | | | | | | [place], [place] | | | | | | [address] | | | | | | [phone] | | | | | | | | +--------+---------+ + + + documented as of this encounter Procedures + +--------+ + + + | Procedure Name | Priori | Date/Time | Associated Diagnosis | Comments | | | ty | | | | + +--------+ + + + | VT DIFFUSING | Routin | 08/15/2015 | Encounter for | | | CAPACITY | e | 10:41 AM | long-term (current) | | | | | PST | use of medications | | + +--------+ + + + | VT SPIROMETRY TEST | Routin | 08/15/2015 | [...]
--- OUTSIDE RECORDS SUMMARY | ~2019-05-17 | XMS | Encounter Summary ---
Demographics + + + | Address | [address] | | | [place] [address] | + + + | Home Phone [...] Team Providers + +------+ + | Care Churn Operator Margarine Name | Role | Phone | + [...] | | | | | | [facility] | | | | | | [place] [address] | | | | | | [phone] | | | +--------+ + + + [...] | | | | | | [place] | | | | | | [address] | | | | | | [phone] | | | | | | | | +--------+---------+ + + + documented as of this encounter Visit Diagnoses Not on filedocumented in this encounter"
--- OUTSIDE RECORDS SUMMARY | ~2019-05-17 | XMS | Encounter Summary ---
Demographics + + + | Address | [address] | | | [place] [address] | + + + | Home Phone [...] Team Providers + +------+ + | Care Commutator Inspector Name | Role | Phone | + +------+ + | No Pcp Per Patient | PCP | Unavailable | + +------+ + Encounter Details +--------+ + + + + | Date | Type | Department | Care Team | Description | +--------+ + + + + | 03/16/ | Crap Game Box Person | Orthopaedics at | Lobo Jeffers, | Hip joint | | 2017 | | [facility] [address] | [address] | replacement status | | | | [address] | [address] | (Primary Dx) | | | | Mailcode: [id number] | [place], [place] | | | | | [facility] | [address] | | | | | [place], [place] | [phone] | | | | | [address] | | | | | | [phone] | | | +--------+ + + + [...] Rd | | | | | | [place], [place] | | | | | | [address] | | | | | | [phone] | | | | | | | | +--------+---------+ + + + documented as of this encounter Visit Diagnoses + + | Diagnosis | + + | Hip joint replacement status - Primary Hip joint replacement by other means | + + documented in this encounter"
--- OUTSIDE RECORDS SUMMARY | ~2019-05-17 | XMS | Encounter Summary ---
Demographics + + + | Address | [address] | | | [place] [address] | + + + | Home Phone [...] + +------+ + | Care Human Resources Assistant Manager Name | Role | Phone [...] | 2015 | | Hematologic | [address] | | | | | Malignancies at | [address] | | | | | Christian Barry | [place], [place] | | | | | [address] | [address] | | | | | Debi Burger Mailcode: | [phone] | | | | | [facility] | | | | | | [place], | | | | | | [place] [address] | | | | | | [phone] | | | +--------+--------+ + + + [...] Je | | | | | | [address] | | | | | | [place] | | | | | | [address] | | | | | | [phone] | | | | | | | | +--------+---------+ + + + documented as of this encounter Visit Diagnoses Not on filedocumented in this encounter"
--- OUTSIDE RECORDS SUMMARY | ~2019-05-17 | XMS | Encounter Summary ---
Demographics + + + | Address | [address] | | | [place] [address] | + + + | Home Phone [...] Team Providers + +------+ + | Care Numberer And Wirer Name | Role | Phone | + [...] | | | | | | [place], | | | | | | [place] [address] | | | | | | [phone] | | | +--------+ + + + [...] Rd | | | | | | [place], [place] | | | | | | [address] | | | | | | [phone] | | | | | | | [...] the | | | | PDT | ([facility])- primary | results section. | [...]
--- OUTSIDE RECORDS SUMMARY | ~2019-05-17 | XMS | Encounter Summary ---
Demographics + + + | Address | [address] | | | [place] [address] | + + + | Home Phone [...] Team Providers + +------+ + | Care Generator Worker Name | Role | Phone | [...] | | | | | Debi Burger [place], | [place], [place] | | | | | [place] [address] | [address] | | | | | | [phone] | | | | | | | [...] [place] | | | | | | [address] | | | | | | [phone] | | | | | | | [...] [facility] - | [address], | [place] [address] | | | IMMUNOGENETICS/TRANS | [address] [...]
--- OUTSIDE RECORDS SUMMARY | ~2019-05-17 | XMS | Encounter Summary ---
Demographics + + + | Address | [address] | | | [place] [address] | + + + | Home Phone [...] Team Providers + +------+ + | Care Disposition Clerk Name | Role | Phone | [...] | | | | | | [facility] | | | | | | [place] [address] | | | | | | [phone] | | | +--------+ + + + [...] of this encounter Progress Lincoln Austin - 08/16/2016 8:45 AM PSTLeft AC [...] Rd | | | | | | [place], [place] | | | | | | [address] | | | | | | [phone] | | | | | | | [...] [place] | [address] | [place], [place] | | | RUTHIE CARTER OF KRISTA | [address] | [address] | | | TESTS | | | [...] SORTO | [address] | [place], [place] | | | [facility] POINT OF CARE | [address] | [address] | | | TESTS | | | [...] + + + + + | [facility] | [address] | [place] [address] | | | SERVICES, INDRA | WALLY [...]
--- OUTSIDE RECORDS SUMMARY | ~2019-05-17 | XMS | Encounter Summary ---
Demographics + + + | Address | [address] | | | [place] [address] | + + + | Home Phone [...] Providers + +------+ + | Care Paper Testing Supervisor Name | Role | Phone | [...] | | | | | Encounter | [place], [place] | [address] [facility] | | | | | for | [address] | Hospital | | | | | long-term | Phone: | [place], [place] | | | | | current use | [phone] | [address] | | | | | of | Fax: | Phone: | | | | | medication | [phone] | [phone] | | | | | Procedures | | Fax: | | | | | CT SINUS WO | | [phone] | | | | | CONTRAST | | | | | | | ROUTINE | | | | | | | (LANDMARX | | | | | | | PROTOCOL) | | | | | | | MD CT | | | | | | [...] | 2015 | Encounter | Services at [facility] | | | | | | [address] | | | | | | Debi Burger Mailcode: | | | | | | [address] [facility] | | | | | | [place], [place] | | | | | | [address] | | | | | | [phone] | | | +--------+ + + + [...] [place] | | | | | | [address] | | | | | | [phone] | | | | | | | [...]
--- OUTSIDE RECORDS SUMMARY | ~2019-05-17 | XMS | Encounter Summary ---
Demographics + + + | Address | [address] | | | [place] [address] | + + + | Home Phone [...] Providers + +------+ + | Care Technical Services Analyst Name | Role | Phone | + +------+ + | Zayda Hinton | PCP | | + +------+ + Encounter Details +--------+ + + + + | Date | Type | Department | Care Team | Description | +--------+ + + + + | 07/21/ | Pharmacy | Specialty Pharmacy | | | | 2015 | Visit | Services [address] | | | | | | [address] | | | | | | [place], [place] | | | | | | [address] | | | | | | [phone] | | | +--------+ + + + [...] [place] | | | | | | [address] | | | | | | [phone] | | | | | | | | +--------+---------+ + + + documented as of this encounter Visit Diagnoses Not on filedocumented in this encounter"
--- OUTSIDE RECORDS SUMMARY | ~2019-05-17 | XMS | Encounter Summary ---
Demographics + + + | Address | [address] | | | [place] [address] | + + + | Home Phone [...] Team Providers + +------+ + | Care Loader Operator Name | Role | Phone [...] | | | | with stem | [facility] [place] | [place], [place] | | | | | cell | [address] | [address] | | | | | transplant | Phone: | Phone: | | | | | ([facility]) S/P | [phone] | [phone] | | | | | allogeneic | Fax: | Fax: | | | | | bone marrow | [phone] | [phone] | | | | | transplant | | | | | | | ([facility]) Red | | | | | | | eye GVHD | | | | | | | (graft | | | | | | | versus host | | | | | | | disease) | | | | | | | ([facility]) | | | | | [...] KCS | | 2019 | Visit | [place] [facility] at | [address] | (keratoconjunctiviti | | | | [place] [address] | [address] | s sicca) ([facility]) | | | | [address] | [facility] [place] | (Primary Dx); GVHD | | | | Mailcode: CEI | [address] | (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 host | | | | [place], [place] | [phone] | disease) ([facility]); | | | | [address] | | Choroidal nevus of | | | | [phone] | | left eye | +--------+---------+ + [...] antibiotic and steroid drops through his normal contact lens edge buffer (Dr. Ranjan burns) with some improvement in [...] Unremarkable PCP: JULIANA Nova Referring: Aspen Cummins STRIKER OUT ROS: Medications, allergies, medical, surgical and family [...] neurologic, endocrine, bleeding/blood disorders, AIDS/HIV, cancer/tumors, arthritis) Business Analyst Consultant Attestation: FREEDOM Parisi, performed and reviewed the above history, medicat ions, allergies, as well as performed elements noted in the Base Ophthalmology Exam. Examination: Base Exam Visual Acuity (Snellen - Linear) Right Left Dist cc 20/20 -1 20/25 -1 Correction: Glasses Tonometry (Tonopen, 2:49 PM) Right Left Pressure 14 15 Wearing Rx Sphere Cylinder [place] Right -1.25 -2.25 175 Left -1.25 -3.50 003 Age: [age] yr Type: SVL Manifest Refraction Sphere Cylinder [place] Dist [place] Right -1.25 -1.50 175 20/20 [...] for re-eval of symptoms MARANDA BAEZ MD [facility] AT [address] Mailcode: [place] [address] documented in this en counter [...] Rd | | | | | | [place], [place] | | | | | | [address] | | | | | | [phone] | | | | | | | | +--------+---------+ + + + documented as of this encounter Visit Diagnoses + + | Diagnosis | + + | KCS (keratoconjunctivitis sicca) ([facility]) - Primary Sicca syndrome | + + | 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
--- OUTSIDE RECORDS SUMMARY | ~2019-05-17 | XMS | Encounter Summary ---
Demographics + + + | Address | [address] | | | [place] [address] | + + + | Home Phone [...] Team Providers + +------+ + | Care Specialty Cook Name | Role | Phone | [...] | | | myelomonocyt | [address] | | | | | ic leukemia, | [facility] | [facility] | | | | | not having | [address] | [address] | | | | | achieved | [place], [place] | Rd Mailcode: | | | | | remission | [address] | [id number] | | | | | Procedures | Phone: | [place] | | | | | [place] | [phone] | Pavilion | | | | | AZACITIDINE | Fax: | [place], [place] | | | | | INJECTION, 1 | [phone] | [address] | | | | | [place] | | Phone: | | | | | CHM,IV | | [phone] | | | | | INFSN,1 HR | | Fax: | | | | | [place] CHM,IV | | [phone] | | | | | INFSN,ADDL | [...] | | | | | | [facility] [place] | | | | | | [place], | | | | | | [place] [address] | | | | | | [phone] | | | +--------+ + + + [...] Rd | | | | | | [place], [place] | | | | | | [address] | | | | | | [phone] | | | | | | | [...] | | | | | PDT | ([facility])- primary | | | | | | induction failure | | + +--------+ + + + | TREATMENT PARAMETERS | Routin | 12/29/2015 | 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:40 AM | leukemia (AML), M4 | | | | | PDT | ([facility])- primary | | | | | | induction failure | | + +--------+ + + + | TREATMENT PARAMETERS | Routin | 12/29/2015 | 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:40 AM | leukemia (AML), M4 | | | | | PDT | ([facility])- primary | | | | | [...] M4 | | | | | | ([facility])- primary | | | | | [...] M4 | | | | | | ([facility])- primary | | | | | [...] M4 | | | | | | ([facility])- primary | | | | | [...] M4 | | | | | | ([facility])- primary | | | | | [...] HOSPITAL LAB[facility]ORY | [address] | [place] [address] | | | INDRA SHARIF | WALLY [...]
--- OUTSIDE RECORDS SUMMARY | ~2019-05-17 | XMS | Encounter Summary ---
Demographics + + + | Address | [address] | | | [place] [address] [...] Providers + +------+ + | Care Bottle Tester Name | Role | Phone | [...] | | | | Christian Barry | [place], [place] | | | | | [address] | [address] | | | | | Debi Burger Mailcode: | [phone] | | | | | [facility] | | | | | | [place], | | | | | | [place] [address] | | | | | | [phone] | | | +--------+--------+ + + + [...] Rd | | | | | | [place] | | | | | | [address] | | | | | | [phone] | | | | | | | | +--------+---------+ + + + documented as of this encounter Visit Diagnoses Not on filedocumented in this encounter"
--- OUTSIDE RECORDS SUMMARY | ~2019-05-17 | XMS | Encounter Summary ---
Demographics + + + | Address | [address] | | | [place] [address] | + + + | Home Phone [...] Providers + +------+ + | Care Event Marketing Assistant Name | Role | Phone | + +------+ + | Zayda Hinton | PCP | | + +------+ + Encounter Details +--------+ + + + + | Date | Type | Department | Care Team | Description | +--------+ + + + + | 02/09/ | Pharmacy | Specialty Pharmacy | | | | 2015 | Visit | Services [address] | | | | | | [address] | | | | | | [place], [place] | | | | | | [address] | | | | | | [phone] | | | +--------+ + + + [...] Rd | | | | | | [place], [place] | | | | | | [address] | | | | | | [phone] | | | | | | | | +--------+---------+ + + + documented as of this encounter Visit Diagnoses Not on filedocumented in this encounter"
--- OUTSIDE RECORDS SUMMARY | ~2019-05-17 | XMS | Encounter Summary ---
Demographics + + + | Address | [address] | | | [place] [address] | + + + | Home Phone [...] Team Providers + +------+ + | Care Fpga Engineer Name | Role | Phone | [...] | | | | | | [place], | | | | | | [place] [address] | | | | | | [phone] | | | +--------+ + + + [...] Rd | | | | | | [place], [place] | | | | | | [address] | | | | | | [phone] | | | | | | | | +--------+---------+ + + + documented as of this encounter Visit Diagnoses Not on filedocumented in this encounter"
--- OUTSIDE RECORDS SUMMARY | ~2019-05-17 | XMS | Encounter Summary ---
Demographics + + + | Address | [address] | | | [place] [address] | + + + | Home Phone [...] Providers + +------+ + | Care Customer Service Consultant Name | Role | Phone | + +------+ + | Pending Pcp Addition | PCP | Unavailable | + +------+ + Encounter Details +--------+ + + + + | Date | Type | Department | Care Team | Description | +--------+ + + + + | 07/08/ | Photogrammetric Compilation Specialist | Center for | [place], | Acute myeloid | | 2015 | | Hematologic | [place] | leukemia (AML), M4 | | | | Malignancies at [facility] | [address] | (HCC) (Primary Dx) | | | | [address] | [place], | | | | | [address] Mailcode: | [place] [address] | | | | | [facility] [place] | [phone] | | | | | [place], | | | | | | [place] [address] | | | | | | [phone] | | | +--------+ + + + [...] Rd | | | | | | [place], [place] | | | | | | [address] | | | | | | [phone] | | | | | | | [...] SORTO | [address] | [place], [place] | | | [facility] POINT OF [facility] | [address] | [address] | | | TESTS | | | [...] | + + + + + | [facility] | [address] | [place] [address] | | | SERVICES, CORE | WALLY [...] [facility] | [address] | [place] [address] | | | SERVICES, CORE | PARK [...] YESSICA [facility] | [address] | [place] [address] | | | SERVICES, CORE | [address] | | | + + + + + documented in this encounter Visit Diagnoses + + | Diagnosis | + + | Acute myeloid leukemia (AML), M4 (HCC) - Primary | + + documented in this encounter"
--- OUTSIDE RECORDS SUMMARY | ~2019-05-17 | XMS | Encounter Summary ---
Demographics + + + | Address | [address] | | | [place] [address] | + + + | Home Phone [...] Providers + +------+ + | Care Hotel Administrative Assistant Name | Role | Phone | + +------+ + | Zayda Hinton | PCP | | + +------+ + Encounter Details +--------+ + + + + | Date | Type | Department | Care Team | Description | +--------+ + + + + | 04/08/ | Telephone | Orthopaedics at | Lobo Jeffers, | | | 2017 | | [facility] [address] | [address] | | | | | [place] Mailcode: CH12A | [address] | | | | | [facility] | [place], [place] | | | | | and [place], | [address] | | | | | [facility] | [phone] | | | | | Floor [place], [place] | | | | | | [address] | | | | | | [phone] | | | +--------+ + + + [...] Rd | | | | | | [place], [place] | | | | | | [address] | | | | | | [phone] | | | | | | | | +--------+---------+ + + + documented as of this encounter Visit Diagnoses Not on filedocumented in this encounter"
--- OUTSIDE RECORDS SUMMARY | ~2019-05-17 | XMS | Encounter Summary ---
Demographics + + + | Address | [address] | | | [place] [address] | + + + | Home Phone [...] Team Providers + +------+ + | Care Publications Manager Name | Role | Phone | [...] | | | | | | | [address] | | | | | | | [address] | | | | | | | [place], | | | | | | | [place] | | | | | | | [address] | | | | | | | Phone: | | | | | | | [phone] | | | | | | | Fax: | | | | | | | [phone] | +--------+--------+ + + + + Encounter Details +--------+---------+ + + + | Date | Type | Department | Care Team | Description | +--------+---------+ + + + | 12/29/ | Office | Center for | Yari Garcia MD | GVHD (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 | | 2016 | Visit | Hematologic | [address] [facility] | host disease) (HCC) | | | | Malignancies at | [address] | (Primary Dx) | | | | Christian Barry | [place], [place] | | | | | [address] | [address] | | | | | Debi Burger Mailcode: | [phone] | | | | | [facility] | | | | | | [place], | | | | | | [place] [address] | | | | | | [phone] | | | +--------+---------+ + + + [...] MM URD (DPB1 permissive antigen mismatch, male, [id number]) Identifying Data: Khurram Kelly is a 25 [...] his L ankle. He was evaluated at [facility] ED on 06/[address] [...] CD34, variable CD56, variable CD117, and dim [id number] mickey; promonocyte immunophenotype (70% by flow): CD11b, [...] ant chest wall without erythema, induration Clinical Operating Room Assistant on 12/30/2015 Component Date Value WBC POC [...] AML. His most recent marrow studies [facility] 11/22/15 showed a hypocellular marrow (patchy [...] e disease at time of transplant 2. 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
--- OUTSIDE RECORDS SUMMARY | ~2019-05-17 | XMS | Encounter Summary ---
Demographics + + + | Address | [address] | | | [place] [address] | + + + | Home Phone [...] Team Providers + +------+ + | Care Art Class Model Name | Role | Phone | [...] | | | | | achieved | [facility] [place] | [id number] | | | | | remission | [address] | [place] | | | | | | Phone: | Pavilion | | | | | Procedures | [phone] | [place], [place] | | | | | Post BMT | Fax: | [phone] | | | | | Auth to | [phone] | Phone: | | | | | included | | [phone] | | | | | facility, | | Fax: | | | | | diagnostics, | | [phone] | | | | | office | [...] | Visit | Hematologic | PA-C [address] [facility] | leukemia (AML), M4 | | | | Malignancies at | Jabier Debi Burger | ([facility])- primary | | | | [facility] | [place], [place] | induction failure | | | | [address] [facility] | [address] | (Primary Dx); S/P | | | | Debi Burger Mailcode: | [phone] | allogeneic bone | | | | [facility] [place] | | marrow transplant | | | | Pavilion [place], | | ([facility]) | | | | [place] [address] | | | | | | [phone] | | | +--------+---------+ + + + [...] for the oxycodone has been sent to [facility] pharmacy in [facility]. -Okay to take docusate 100 mg tablet daily. Hold for loose stools. Post Bone Marrow Biopsy Instructions 1. Keep your dressing dry for the next 24 hours; no shower or bath until tomorrow. 2. If you notice any signs of infection at the biopsy site (redness, tenderness, drainage) , please call the Triage nurse at ([phone]) or BMT person on-call ([phone]) after hours. 3. If you received medications such as morphine, you may not drive for at least 8 hours. documented in this encounter Progress Notes Em Saunders PA-C - 09/27/2015 6:46 PM PDTFormatting of this note might be different f rom the original. 09/27/2015 [facility] Physician: Yari Garcia MD Local Oncologist: Yari Garcia MD PCP: Pending Pcp ADDITION Hematologic Malignancy: Primary refractory AML Conditioning regimen: tBuCy Date of transplant: 08/27/2015 (two day 0s) Donor: MM URD (DPB1 permissive antigen mismatch, male, 8002-7248-2) Hematologic History: Khurram Kelly is a 25 y.o. CM with a PMH of pericarditis who was in his [facility] ntil 03/13/15 (the night of his [...] his L ankle. He was evaluated at [facility] ED on 06/[address] angiogram negative [...] CD34, variable CD56, variable CD117, and dim GH889-hyyqv mickey; promonocyte immunophenotype (70% by flow): CD11b, [...] eruption of lymphocyte recovery and early mild sfjgw-dcwmse-pizk disease. On 09/13, rash in volved ~15% [...] clinic 09/30/15 to see me, sooner prn. mE Saunders PA-C [facility] [address] [facility] [address] [facility] Mailcode: [place] [address] documented in this encounter Plan [...] | 2019 | Visit | Malignancy | [facility] | | | | | | [facility] | | | | | | [place], [place] | | | | | | [address] | | | | | | [phone] | | | | | | | [...] MARQUAM | [address] | [place], [place] | | | RUTHIE CARTER OF KRISTA | [facility] | [address] | | | TESTS | | | [...] MARNETTIEAM | [address] | [place], [place] | | | RUTHIE CARTER OF KRISTA | [facility] | [address] | | | TESTS | | | [...] | + + + + + | [facility] | [address] | [place] [address] | | | SERVICES, SPECIAL | PARK [...] [facility] | [address] | [place] [address] | | | SERVICES, CORE | PARK [...] YESSICA LOZA | [address] | [place] [address] | | | SERVICES, INDRA | PARK [...]
--- OUTSIDE RECORDS SUMMARY | ~2019-05-17 | XMS | Encounter Summary ---
Demographics + + + | Address | [address] | | | [place] [address] | + + + | Home Phone [...] Providers + +------+ + | Care Admissions Rn Name | Role | Phone | [...] | | | | | remission | [address] | [place] | | | | | | Phone: | Pavilion | | | | | Procedures | [phone] | [place], [place] | | | | | Post BMT | Fax: | [address] | | | | | Auth to | [phone] | Phone: | | | | | included | | [phone] | | | | | facility, | | Fax: | | | | | diagnostics, | | [phone] | | | | | office | [...] | (HCC)- primary | | | | [facility] | [place], [place] | induction failure | | | | [address] | [address] | (Primary Dx) | | | | Debi Burger Mailcode: | [phone] | | | | | [facility] | | | | | | Pavilion [place], | | | | | | [place] [address] | | | | | | [phone] | | | +--------+---------+ + + + [...] Cummins FNP - 11/22/2015 7:26 AM PDT11/22/2015 [place] [facility] Procedure Note Procedure: Bone [...] ORLY Yanes [facility] AT [address] Mailcode: [place] [address] documented in this enc ounter Plan of [...] Rd | | | | | | [place], [place] | | | | | | [address] | | | | | | [phone] | | | | | | | | +--------+---------+ + + + documented as of this encounter Procedures + +--------+ + + + | Procedure Name | Priori | Date/Time | Associated Diagnosis | Comments | | | ty | | | | + +--------+ + + + | DE BONE MARROW ASP | Routin | 11/22/2015 | Acute myeloid | | | SAME DAY BIOPSY | e | 9:50 AM | leukemia (AML), 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 | | | | | | induction failure | | + +--------+ + + + | DE BONE MARROW BX, | Routin | 11/22/2015 [...] | | | | | CD4, CD8, QG4lbpr,CD19, | | | | | | CD25, [...] | | | | | | 55-85% [id number]+ | | | | | | CD4+ | | | | | | 22 385 | | | | | | 28-57% [id number]+ | | | | | | CD8+ [...] | | | | | | | %LymphsCD3+CD4+YY3qjyo | | | | | | + 0.2 | | | | | | | | | | | | <1.5%CD3+HLA-DR+ | | | | | | 0.4 | | | | | | | | | | | | <10%CD4+CD25+ | | | | | | 3 | | | | | | | | | | | | <7%UU2cksj+CD69+ | | | | | | 1 [...] [facility] | [address] | [place] [address] | | | PATHOLOGY | [address] | | | + + + + + documented in this encounter Visit Diagnoses + + | Diagnosis | + + | Acute myeloid leukemia (AML), M4 (HCC)- primary induction failure - Primary | + + documented in this encounter"
--- OUTSIDE RECORDS SUMMARY | ~2019-05-17 | XMS | Encounter Summary ---
Demographics + + + | Address | [address] | | | [place] [address] | + + + | Home Phone [...] Team Providers + +------+ + | Care Social Group Worker Name | Role | Phone | [...] | | | | ic leukemia, | [facility] | [facility] | | | | | not having | [address] | Jabier Carrera | | | | | achieved | [place], [place] | Mailcode: | | | | | remission | [address] | [facility] | | | | | Procedures | Phone: | Long | | | | | CT | [phone] | Pavilion | | | | | AZACITIDINE | Fax: | [place], [place] | | | | | INJECTION, 1 | [phone] | [address] | | | | | MG CT | | Phone: | | | | | CHM,IV | | [phone] | | | | | INFSN,1 HR | | Fax: | | | | | CT CHM,IV | | [phone] | | | | | INFSN,ADDL | [...] | Medication | | | | [facility] Long | | Administration | | | | [place]a [place], | | (Potassium 40 meq; | | | | [place] [address] | | Oxycodone 10 mg PO) | | | | [phone] | | | +--------+ + + + [...] GLU 132* CA 9.9 MG 2.0 Narrative: Khurram is a 25 yo male patient of [...] to check out at the front maker lockstitch prior to leaving the clinic. Patient d/c [...] | | | | | | [place], [place] | | | | | | [address] | | | | | | [phone] | | | | | | | [...] | | PDT | transplant ([facility]) | results section. | | | | | Acute myeloid | | | | | | leukemia (AML), M4 | | | | | | ([facility])- primary | | | | | | [...] | | | | | ([facility])- primary | | | | | | [...] | | | | | ([facility])- primary | | | | | | [...] | | | PDT | ([facility])- primary | | | | | | induction failure | | + +--------+ + + + | TREATMENT PARAMETERS | Routin | 12/27/2015 | 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:32 AM | leukemia (AML), M4 | | | | | PDT | ([facility])- primary | | | | | | induction failure | | + +--------+ + + + | NURSING | Routin | 12/27/2015 | Acute myeloid | | | COMMUNICATION #3 - | e | 8:32 AM | leukemia (AML), M4 | | | [facility] | | PDT | ([facility])- primary | | | | | | induction failure | | + +--------+ + + + | NURSING | Routin | 12/27/2015 | Acute myeloid | | | COMMUNICATION #2 - | e | 8:32 AM | leukemia (AML), M4 | | | [facility] | | PDT | ([facility])- primary | | | | | | induction failure | | + +--------+ + + + | NURSING | Routin | 12/27/2015 | Acute myeloid | | | COMMUNICATION #1 - | e | 8:32 AM | leukemia (AML), M4 | | | [facility] | | PDT | ([facility])- primary | | | | | | induction failure | | + +--------+ + + + | TREATMENT PARAMETERS | Routin | 12/27/2015 | Acute myeloid | | | #1 - BEACON | e | 8:32 AM | leukemia (AML), M4 | | | | | PDT | ([facility])- primary | | | | | | induction failure | | + +--------+ + + + | TREATMENT PARAMETERS | Routin | 12/27/2015 | Acute myeloid | | | #1 - [facility]ACON | e | 8:32 AM | leukemia (AML), M4 | | | | | PDT | ([facility])- primary | | | | | | [...] (H)Comment: | 1.5 - 8.1 U/L | [facility] | | | SERUM | REFERENCE INTERVAL: | | REG UNIV | | | | Aldolase Access complete | | PTH - INTFC | | | | set of age- and/or | | | | | | gender-specific | | | | | | reference intervals for | | | | | | this test in the [facility] | | | | | | Laboratory Test | | | | | | Directory | | | | | | (THE EMPTY JOINT.ImmuneXcite).Performed | | | | | | by [employer],[address] | | | | | | Junaid Elizondo, [facility],[place] | | | | | | [address] | | | | | | [phone].[employer]. | | | | | | [facility], Elmo Roberts, | | | | | [...] [facility] | [address] | [place], [place] | | | UNIV PTH - INTFC | | [address] | | + + + + + [...] [facility] | [address] | [place] [address] | | | SERVICES, CORE | PARK [...] + | [facility] | [address] | [place] [address] | | | SERVICES, CORE | PARK [...] | | | characteristics determined by the [facility] | | | Molecular Diagnostic Center. It has not been cleared or approved by | | | the Food and Drug Administration. FDA approval is not required for | | | clinical use of this test, and therefore validation was done as | | | required under the requirements of the Clinical Laboratory Improvement | | | Act of 1988. The [facility] | | | Diagnostic Center is a fully licensed and/or accredited clinical | | | laboratory under CLIA, CAP, and the [facility]. | | + + + + + + + + | Performing | Address | City/State/[facility] | Phone Number | | Organization | | | | + + + + + | [facility] | [address] | [place] [address] | | | DIAGNOSTIC | [address] [...] ABELARDOAM | [address] | [place], [place] | | | RUTHIE CARTER OF CARE | [address] | [address] | | | TESTS | | | [...] SORTO | [address] | [place], [place] | | | [facility] POINT OF CARE | [address] | [address] | | | TESTS | | | [...]
--- OUTSIDE RECORDS SUMMARY | ~2019-05-17 | XMS | Encounter Summary ---
Demographics + + + | Address | [address] | | | [place] [address] | + + + | Home Phone [...] Providers + +------+ + | Care Strategic Alliances Manager Name | Role | Phone | [...] [address] | | | | | [place], [place] | [place], [place] | | | | | [address] | [address] | | | | | [phone] | [phone] | | | | | | | [...] Rd | | | | | | [place], [place] | | | | | | [address] | | | | | | [phone] | | | | | | | [...]
--- OUTSIDE RECORDS SUMMARY | ~2019-05-17 | XMS | Encounter Summary ---
Demographics + + + | Address | [address] | | | [place] [address] | + + + | Home Phone [...] Providers + +------+ + | Care Battery Tester Field Name | Role | Phone | + [...] | | | | achieved | [place], [place] | [facility] | | | | | remission | [address] | [place] | | | | | | Phone: | Pavilion | | | | | Procedures | [phone] | [place], [place] | | | | | Post BMT | Fax: | [address] | | | | | Auth to | [phone] | Phone: | | | | | included | | [phone] | | | | | facility, | | Fax: | | | | | diagnostics, | | [phone] | | | | | office | [...] | Visit | Hematologic | [address] [facility] | marrow transplant | | | | Malignancies at | Pearson Debi Burger | (HCC) (Primary Dx) | | | | [facility] | [place], [place] | | | | | [address] | [address] | | | | | Debi Burger Mailcode: | [phone] | | | | | [facility] [place] | | | | | | Pavilion [place], | | | | | | [place] [address] | | | | | | [phone] | | | +--------+---------+ + + + [...] Donor: MMURD (DPB1 permissive antigen mismatch, male, [id number]) Identifying Data: Khurram Kelly is a 26 [...] his L ankle. He was evaluated at [facility]'s ED on 06/[address] angiogram negative [...] CD34, variable CD56, variable CD117, and dim RJ352-aysbq mickey; promonocyte immunophenotype (70% by flow): CD11b, [...] [facility] by Yari Garcia MD on 12/18/16. [...] indicated providing peripheral counts remain stable 2. 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 He initially responded but flared during taper. He also developed low-level nausea and abd discomfort concerning for GvHD, emp irically treated with oral non-absorbables with resolution. - He had tapered prednisone to 10 mg po daily when he developed a rash for which he was see n in the ED in [place] in late 01/21. Prednisone was increased back [...] candidiasis His most recent immune reconstitution panel [facility] 08/31/16 showed normal total T [...] controlled with current xanax dosing. 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 Traveling to [facility] 01/02-01/17/17 w nathanael plans to move back to [place] on 01/20/17. -->continue to attend [facility] support group as able --> continue xanax 1 mg po TID; if pt decides he wants to taper off, recommended very slow taper by decreasing to a total of five 0.5 mg tabs/day for several weeks, then four, etc. 7. Follow up -->repeat labs at [facility] on 01/01/17 --> RTC to f/u with Yari Garcia MD on , 01/18/17, sooner prn ORLY Yanes [facility] [address] Mailcode: [place] [address] documented in this enc ounter Plan of [...] | | | | | | [place], [place] | | | | | | [address] | | | | | | [phone] | | | | | | | | +--------+---------+ + + + documented as of this encounter Visit Diagnoses + + | Diagnosis | + + | 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HCC) - Primary Bone marrow replaced by | | transplant | + + documented in this encounter
--- OUTSIDE RECORDS SUMMARY | ~2019-05-17 | XMS | Encounter Summary ---
Demographics + + + | Address | [address] | | | [place] [address] | + + + | Home Phone [...] Providers + +------+ + | Care Music Writer Name | Role | Phone | [...] | | myelomonocyt | [address] | | | | | ic leukemia, | [address] | Paulina | | | | | not having | [address] | Jabier Carrera | | | | | achieved | [place], [place] | Mailcode: | | | | | remission | [address] | [facility] | | | | | Procedures | Phone: | [place] | | | | | [place] | [phone] | Pavilion | | | | | AZACITIDINE | Fax: | [place], [place] | | | | | INJECTION, 1 | [phone] | [address] | | | | | [place] | | Phone: | | | | | CHM,IV | | [phone] | | | | | INFSN,1 HR | | Fax: | | | | | [place] CHM,IV | | [phone] | | | | | INFSN,ADDL | [...] PO); Chemotherapy | | | | [facility] [place] | | (Vidaza C4D1) | | | | [place], | | | | | | [place] [address] | | | | | | [phone] | | | +--------+ + + + [...] MM URD (DPB1 permissive antigen mismatch, male, [id number]) Patient scheduled for provider visit today with [...] was instructed to check out at the [facility] desk prior to leaving the clinic. Patient d/c d ambulatory with . Next Appointment in [facility] is on 01/24/16 documented in this [...] 2019 | Visit | Malignancy | [address] [facility] | | | | | | [address] | | | | | | [place], [place] | | | | | | [address] | | | | | | [phone] | | | | | | | [facility] primary | results section. | | | [...] [facility] primary | results section. | | | [...] [facility] primary | results section. | | | [...] MARQUAM | [address] | [place], [place] | | | [facility] POINT OF CARE | [address] | [address] | | | TESTS | | | [...] MACARIO | [address] | [place], [place] | | | [place], POINT OF CARE | [address] | [address] | | | TESTS | | | [...] [facility] | [address] | [place] [address] | | | SERVICES, CORE | [address] [...] not reflect true | [facility] | | biological changes and must be [...] | | | characteristics determined by the [facility] | | | Molecular [...] | | | Act of 1988. The [facility] | | | [...] + + | SHAN | [address] | [place] [address] | | | DIAGNOSTIC | [address] [...]
--- OUTSIDE RECORDS SUMMARY | ~2019-05-17 | XMS | Encounter Summary ---
Demographics + + + | Address | [address] | | | [place] [address] | + + + | Home Phone [...] Providers + +------+ + | Care Boiler Inspector Name | Role | Phone | [...] | | | | | [facility] [facility] | | | | | | [place] [address] | | | | | | [phone] | | | +--------+ + + + [...] | | | | | | [place], [place] | | | | | | [address] | | | | | | [phone] | | | | | | | [...] | | | | PST | transplant ([facility] [...] MARQUAM | [address] | [place], [place] | | | RUTHIE CARTER OF CARE | [address] | [address] | | | TESTS | | | [...] YESSICA SORTO | [address] | [place], [place] | | | RUTHIE CARTER OF [facility] | [address] | [address] | | | TESTS | | | [...] LABORATORY | [address] | [place] [address] | | | SERVICES, SPECIAL | PARK [...] | + + + + + | [facility] | [address] | [place] [address] | | | SERVICES, CORE | [address] [...]
--- OUTSIDE RECORDS SUMMARY | 2019-05-17 16:46 | XMS ---
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 Chace has no Care Guidelines for this patient. Skyler VISIT COUNT (12 MO.) 2 JEANETTE Kimball TOTAL 2 NOTE: Visits indicate total known visits. ED/UCC VISIT TRACKING (12 MO.) 05/17/2019 16:43 [place] [place] TYPE: Emergency COMPLAINT: - POST OP ISSUE 05/17/2019 13:00 [place] [place] TYPE: Emergency COMPLAINT: - POST OP PROBLEM INPATIENT VISIT TRACKING (12 MO.) 12/19/2018 07:15 [facility] TYPE: Orthopedic DIAGNOSES: 34676. AVN RIGHT HIP [id number]. Idiopathic aseptic necrosis of left femur [id number]
== END 2019-05-17 17:52 | disposition home or self-care (01) ==
LOC: ED 16:43
DX: L76.22 Postprocedural hemorrhage of skin and subcutaneous tissue following other procedure (principal); S31.000A Unspecified open wound of lower back and pelvis without penetration into retroperitoneum, initial encounter; X58.XXXA Exposure to other specified factors, initial encounter; Z79.899 Other long term (current) drug therapy
CPT/HCPCS: 12001; 99283-25

== ENCOUNTER 2021-03-15 17:04 | Emergency (ER) | payer MEDICARE, OTHER ==
[~2021-03-15] VITALS: Ht 188 cm; Wt 74.8 kg
--- OUTSIDE RECORDS SUMMARY | 2021-03-15 17:08 | XMS ---
PreManage Notification: SINDHU PERSON Security Bondactor Machine Operator Events No recent Security Events currently on file CRITERIA MET - PDMP CARE PROVIDERS LISSA ENGLE Physician Winter Sports Manager 05/19/2019-Current PHONE: Unknown Chace has no Care Guidelines for this patient. ETobi VISIT COUNT (12 MO.) 1 JEANETTE [place]ball TOTAL 1 NOTE: Visits indicate total known visits. ED/UCC VISIT TRACKING (12 MO.) 03/15/2021 17:05 [place] [place] TYPE: Emergency COMPLAINT: - RASH INPATIENT VISIT TRACKING (12 MO.) No inpatient visits to display in this time frame [id number]
[2021-03-15] MEDS ORDERED: SERTRALINE HCL100 MG PO (17:39)
[2021-03-15] MEDS ORDERED: ASTAGRAF XL1 MG PO (17:39)
[2021-03-15] MEDS ORDERED: TRIAMCINOLONE A15 G3 TOP (17:40)
[2021-03-15] MEDS ORDERED: VITAMIN D21250 MCG PO (17:40)
[2021-03-15] MEDS ORDERED: SULFAMETHOXAZO1 EAC1 PO (17:41)
[2021-03-15] MEDS ORDERED: ALPRAZOLAM XR1 MG PO (17:41)
[2021-03-15] MEDS ORDERED: VALTREX1000 MG PO (18:22)
[2021-03-15] MEDS ORDERED: HYDROCODON-ACE1 EA10 PO (18:22)
== END 2021-03-15 18:47 | disposition home or self-care (01) ==
LOC: ED 17:04
DX: B02.9 Zoster without complications (principal); Z94.81 Bone marrow transplant status; Z85.6 Personal history of leukemia; Z87.891 Personal history of nicotine dependence; Z79.899 Other long term (current) drug therapy
CPT/HCPCS: 99282

== ENCOUNTER 2021-03-17 14:11 | Emergency (ER) | payer MEDICARE, OTHER ==
[~2021-03-17] VITALS: Ht 188 cm; Wt 74.8 kg
[~2021-03-17 14:11] MED LIST changes: +ALPRAZOLAM XR1 MG PO; +ASTAGRAF XL1 MG PO; +HYDROCODON-ACE1 EA10 PO; +SERTRALINE HCL100 MG PO; +SULFAMETHOXAZO1 EAC1 PO; +TRIAMCINOLONE A15 G3 TOP; +VALTREX1000 MG PO; +VITAMIN D21250 MCG PO
--- OUTSIDE RECORDS SUMMARY | 2021-03-17 14:14 | XMS ---
PreManage Notification: SINDHU PERSON Security Coke Crane Operator Events No recent Security Events currently on file CRITERIA MET - [facility] - 2 Visits in 30 Days - PDMP CARE PROVIDERS LISSA ENGLE Physician Nuclear Medicine Officer 05/19/2019-Current PHONE: Unknown Chace has no Care Guidelines for this patient. Skyler VISIT COUNT (12 MO[address] 2 [facility] TOTAL 2 NOTE: Visits indicate total known visits. ED/UCC VISIT TRACKING (12 MO.) 03/17/2021 14:12 [place]TE [place] TYPE: Emergency COMPLAINT: - HEADACHE, H/C SWEATS, FEVER 03/15/2021 17:05 [place]ETTE [place] TYPE: Emergency COMPLAINT: - RASH INPATIENT VISIT TRACKING (12 MO.) No inpatient visits to display in this time frame [email or web address]
[2021-03-17] MEDS ORDERED: CLEOCIN HCL300 MG PO (17:16)
== END 2021-03-17 17:30 | disposition home or self-care (01) ==
LOC: ED 14:11
DX: K62.89 Other specified diseases of anus and rectum (principal); B02.9 Zoster without complications; Z87.891 Personal history of nicotine dependence; Z79.899 Other long term (current) drug therapy; Z85.6 Personal history of leukemia
CPT/HCPCS: 71045; 74177; 80053; 81001; 83605; 85025; 99284-25; J7030; Q9967

== ENCOUNTER 2022-08-19 08:57 | Emergency (ER) | payer MEDICARE, OTHER ==
[~2022-08-19] VITALS: Ht 188 cm; Wt 74.8 kg
[~2022-08-19 08:57] MED LIST changes: +CLEOCIN HCL300 MG PO
--- OUTSIDE RECORDS SUMMARY | 2022-08-19 09:17 | XMS ---
PreManage Notification: SINDHU PERSON Security Underground Foreman Events No recent Security Events currently on file CRITERIA MET - PDMP CARE PROVIDERS LISSA ENGLE Physician Sheet Metal Mechanic 05/19/2019-Current PHONE: Unknown Chace has no Care Guidelines for this patient. ETobi VISIT COUNT (12 MO.) 1 JEANETTE [place] TOTAL 1 NOTE: Visits indicate total known visits. ED/UCC VISIT TRACKING (12 MO.) 08/19/2022 08:58 JEANETTE [place] TYPE: Emergency COMPLAINT: - COLD SYMPTOMS INPATIENT VISIT TRACKING (12 MO.) No inpatient visits to display in this time frame [id number]
== END 2022-08-19 10:55 | disposition home or self-care (01) ==
LOC: ED 08:57
DX: J06.9 Acute upper respiratory infection, unspecified (principal); Z20.822 Contact with and (suspected) exposure to COVID-19; Z87.891 Personal history of nicotine dependence; Z79.899 Other long term (current) drug therapy
CPT/HCPCS: 36415; 71046; 80053; 85025; 87502; 99283-25; C9803; U0003

== ENCOUNTER 2022-10-17 12:40 | Emergency (ER) | payer MEDICARE, OTHER ==
[~2022-10-17] VITALS: Ht 188 cm; Wt 74.7 kg
--- OUTSIDE RECORDS SUMMARY | 2022-10-17 12:44 | XMS ---
PreManage Notification: SINDHU PERSON Security Textile Supervisor Events No recent Security Events currently on file CRITERIA MET - PDMP CARE PROVIDERS LISSA ENGLE Physician Alcoholic Counselor 05/19/2019-Current PHONE: Unknown Chace has no Care Guidelines for this patient. ETobi VISIT COUNT (12 MO.) 2 JEANETTE [place]ball TOTAL 2 NOTE: Visits indicate total known visits. ED/UCC VISIT TRACKING (12 MO.) 10/17/2022 12:[address] [facility] [place] TYPE: Emergency COMPLAINT: - BODY SWEATS, NO APPETITE, COLD CHILLS, FATIGUE 08/19/2022 08:[address] [facility] [place] TYPE: Emergency COMPLAINT: - COLD SYMPTOMS DIAGNOSES: - Acute upper respiratory infection, unspecified - Fever, unspecified - Other exterminator termite (current) drug therapy - Contact with and (suspected) exposure to COVID-19 - Personal history of nicotine dependence INPATIENT VISIT TRACKING (12 MO.) No inpatient visits to display in this time frame [email or web address]
== END 2022-10-17 16:56 | disposition home or self-care (01) ==
LOC: ED 12:40
DX: B34.9 Viral infection, unspecified (principal); Z87.891 Personal history of nicotine dependence; Z79.899 Other long term (current) drug therapy
CPT/HCPCS: 36415; 80053; 85025